=== PATIENT | female | born 1970 | race Caucasian/White ===

== ENCOUNTER 2017-07-03 19:20 | Observation (INO) | payer MEDICARE, SELFPAY ==
[2017-07-03 19:21] VITALS: BP 122/94; PULSE 96; RESP 15; TEMP 36.8; O2SAT 94; BMI 28.8
--- NOTE | 2017-07-03 20:02 | CT_ITS ---
STUDY: CT LUMBAR SPINE WITH CONTRAST REASON FOR EXAM: Female, 47 years old. Low back pain RADIATION DOSAGE (If Supplied By Facility): CTDIvol = ( 17.60 ) mGy, DLP = ( 1038.57 ) mGycm TECHNIQUE: The patient was scanned in a multi detector CT scanner. High resolution transaxial imaging was performed following the intravenous administration of 100 ml of Isovue 300 contrast material. Images were obtained from T12 to the lower pelvis. Sagittal and coronal images were reconstructed. Individualized dose optimization techniques were used for this CT. COMPARISON: May 05, 2016 FINDINGS: Normal lumbar lordosis. There is no substantial scoliosis. Normal alignment of the lumbar vertebral bodies. Pedicle screws and rods are present bilaterally from L4 through S1. L1-2: Normal endplates. Normal disc height and morphology. Normal bilateral facet joints. Normal central canal and bilateral lateral recesses. Normal bilateral intervertebral neural foramina. L2-3: Normal endplates. Normal disc height and morphology. Normal bilateral facet joints. Normal central canal and bilateral lateral recesses. Normal bilateral intervertebral neural foramina. L3-4: There is minimal disc space narrowing and disc bulge without canal narrowing or significant foraminal narrowing. L4-5: There is moderate disc space narrowing and broad disc bulge. There is no canal narrowing or significant foraminal narrowing. L5-S1: There is minimal disc bulge without canal narrowing. There is mild foraminal narrowing on the left. There are benign appearing cysts in both kidneys. There is fatty infiltration of the liver. CT/Coronals Sag Multi Obl 3-D Rec IMPRESSION: No acute abnormalities are seen in the lumbar spine. There are no compression fractures. There is no abnormal enhancement. There are no abnormal masses or fluid collections. There are stable surgical changes from L4 through S1. Electronically Signed: Maya Pearson MD at 22:28 EST Tel Direct: [phone], Service support ,
--- NOTE | 2017-07-03 20:02 | CT_ITS ---
STUDY: CT ABDOMEN AND PELVIS WITH CONTRAST REASON FOR EXAM: Female, 47 years old. Low abdominal pain RADIATION DOSAGE (If Supplied By Facility): CTDIvol = ( 17.60 ) mGy, DLP = ( 1038.57 ) mGycm TECHNIQUE: Transaxial images were obtained from the dome of the diaphragm to the symphysis pubis without oral contrast. 100 ml of Isovue 300 contrast was administered. Sagittal and coronal images were reconstructed. Individualized dose optimization techniques were used for this CT. COMPARISON: April 30, 2017 FINDINGS: The visualized lung bases are unremarkable. There is no pleural effusion. The heart is normal in size. There is diffuse decreased density of the liver. There are surgical clips in the gallbladder fossa consistent with a prior cholecystectomy. The spleen is unremarkable. The pancreas is unremarkable. The adrenal glands are unremarkable. There are benign cysts in the right kidney. There is no dilatation of the collecting system in the right kidney. There are benign cysts in the left kidney. There is no dilatation of the collecting system in the left kidney. The stomach is unremarkable. The small bowel is unremarkable. There are diverticula in the distal colon without adjacent stranding. The appendix is surgically absent. The aorta and branch vessels are unremarkable. The inferior vena cava is unremarkable. There are small lymph nodes scattered in the retroperitoneum. There is no free fluid. The urinary bladder is unremarkable. There is absence of the uterus likely from prior hysterectomy. There are no abnormal masses in the adnexal regions. There is a metallic device in the mid left abdominal wall. There are mild degenerative changes in the visualized spine. There are surgical changes in the lower lumbar spine. CT/Abdomen/Pelvis W IV Cont ONLY IMPRESSION: No acute abnormalities are seen in the abdomen or pelvis. There is mild diverticulosis of the distal colon. There is no ascites, inflammation or significant lymphadenopathy. There is diffuse fatty infiltration of the liver. Electronically Signed: Maya Pearson MD at 22:35 EST Tel Direct: [phone], Service support ,
[2017-07-03] MEDS: HYDROmorphone 1 MG/ML Syringe SC (20:04)
--- NOTE | 2017-07-03 20:43 | ED.VISSUMM ---
- ER Visit Summary Date of Service: 07/03/17 Chief Complaint: Back pain History of Present Illness: The patient is a 47 F presenting for evaluation secondary to back pain. Patient has a underlying history of back pain and sees pain management. She has a past history of lumbar surgery, and actually was having worsening back pain so she had lumbar injections performed on Thursday of this week by pain management. Patient states that she had not had any changes in her back pain since Thursday, and denies that she was having any sort of new numbness or weakness or bowel or bladder incontinence fevers or night sweats. Patient states that tonight she was bending over and suddenly had an episode where she started forcibly coughing. Patient states that she had a sudden pop with a ripping sensation in her lower back. She now has pain originating in her lower back and radiating down her legs both sides all the way down to her toes. She denies that there is any bowel or bladder incontinence at this point, but she does state that she has some numbness in her groin and buttock area. She is not in any sort of anticoagulants. She does have a past history of brain aneurysm status post clips. Physical Examination: Vital signs are within normal limits patient is afebrile at 98.3. Well-nourished well-developed age-appropriate female visibly in significant pain, tearful in the bed. Head normocephalic. Moist mucous membranes. No JVD. Heart was regular rate and rhythm no murmurs. Lungs sounds clear to auscultation bilaterally. Abdomen was soft nontender nondistended normal bowel sounds no evidence of palpable abdominal mass or pulsatile mass. Rectal exam showed normal passive and active tone, but the patient reports abnormal perianal sensation and reports numbness in the area. Back exam shows a well-healed surgical scar with diffuse nonlocalizing tenderness palpation with no masses noted. No evidence of erythema at the injection site. Straight leg raise was limited secondary to the patient's level of pain. Strong pulses ?4, calves are supple. Skin normal color. Normal strength and sensation of the lower extremities. Patellar reflexes 2+ and bilaterally symmetric, Achilles 1+ and bilaterally symmetric, negative clonus and Babinski. Test Results: CT abdomen and pelvis with IV contrast found to be unremarkable. CT lumbar spine showed no evidence of acute pathology. CBC and chemistry unremarkable. Emergency Department Course and Treatment: Patient presented for evaluation secondary to a sudden onset back pain after coughing in the setting of having lumbar spinal injections approximately 3 days ago. There is concern for the possibility of epidural hematoma versus impingement versus significant bulging of the lumbar disc versus other etiology so IV was established patient was given Dilaudid and Zofran laboratory studies were obtained and CTs were ordered. Patient continued having pain. Her workup was ultimately found to be negative she was given multiple doses of pain medications in the emergency department. Reviewed the patient's records, she does have a history of coming into the hospital with different neurologic symptoms, and actually had strokelike symptoms at one point recently, received TPA, but was thought to have underlying conversion disorder. She has normal strength and sensation and reflexes are normal rectal tone, but her only symptom that would be concerning for epidural hematoma or other significant spinal pathology as her reported saddle anesthesia. I cannot completely rule out significant etiology at this point given the fact that we cannot do an MRI, so I believe that the best course of action at this time is admission for observation and pain control and reassessment in the morning to see if the patient requires CT myelogram. I discussed this with the hospitalist, the patient will be admitted. Disposition: Admission Impression: 1. Lumbar radiculopathy 2. Subjective saddle anesthesia 3. Recent lumbar injection This note was generated with [employer] dictation software. It may contain incorrect words, spelling, and punctuation that were not noted in review of the chart prior to signing ED Disposition - Plan for ED Patient: Chief Complaint: Back Referrals: Amandeep Loredo [Primary Care Provider] -
[2017-07-03 20:45] LABS: Anion Gap 11 (5-15); BUN 15 mg/dL (7-18); BUN/Creat Ratio 19.7 RATIO (10-20); Calcium,Total 8.4 mg/dL (8.5-10.1); Chloride 108 mmol/L (98-107); Creatinine, Serum 0.76 mg/dL (0.55-1.02); EST Glomerular Filtration Rate 86 mL/min (>60); Est Glom Filt Rate - Afr Amer 104 mL/min (>60); Estimated Creatinine Clearance 91.32 ml/min; Glucose 99 mg/dL (70-110); Potassium 3.9 mmol/L (3.5-5.1); Sodium Level 142 mmol/L (136-145)
[2017-07-03] MEDS: Ondansetron 4 MG/2 ML Vial IV (20:57)
[2017-07-03] MEDS: HYDROmorphone 1 MG/ML Syringe 0.5 MG IV (20:57)
[2017-07-03 21:02] LABS: Absolute Lymphocyte Count 3.42 X10^3/ul (0.83-4.51); Absolute Neutrophil Count 6.5 X10^3/uL (2.0-7.7); Basophil# 0.03 X10^3/uL; Basophil% 0.3 % (0-1); Eosinophil# 0.06 X10^3/uL; Eosinophils% 0.6 % (0-5); Hematocrit 44.5 % (37-47); Hemoglobin 14.9 g/dl (12.0-15.0); Lymphocyte # 3.42 X10^3/ul (4.0); Lymphocyte % 31.4 % (19-41); Mean Corp Hgb Conc 33.5 g/gl (32-36); Mean Corpuscular Hgb 32.1 pg (27.0-32.0); Mean Corpuscular Volume 95.9 fL (81-99); Mean Platelet Vol. 10.2 fl (6.2-12.0); Monocyte% 8.3 % (0-10); Neutrophil # 6.46 X10^3/uL (2.7-7.7); Neutrophil % 59.1 % (47-70); Platelet Count 302 K/mm3 (150-450); RBC Distribution Width CV 13.3 % (11.6-14.6); RBC Distribution Width SD 46.2 fl (35.1-43.9); Red Blood Count 4.64 M/mm3 (4.2-5.4); White Blood Count 10.9 K/mm3 (4.4-11.0)
[2017-07-03 21:03] LABS: POSITIVE COUNT NO; POSITIVE DIFFERENTIAL NO; POSITIVE MORPHOLOGY NO
--- NOTE | 2017-07-03 21:22 | ED.RN ---
PT C/O NEW ONSET OF TOTAL NUMBNESS TO VAGINAL AND RECTUM AREA AT THIS TIME. DR. TURNER INFORMED OF SAME. DR. TURNER INFORMED THIS NURSE THAT PT DOES HAVE RECTAL TONE UPON PHYSICAL EXAMINATION.
[2017-07-03] MEDS: diazePAM 5 MG Tablet PO (22:17)
[2017-07-03 22:25] VITALS: RESP 24
[2017-07-03] MEDS: oxyCODONE 5 MG Tablet 10 MG PO (22:38)
--- NOTE | 2017-07-03 23:27 | HP.PCM_ITS ---
Problem List (1) Acute back pain Status: Acute (2) CVA (cerebral vascular accident) Status: Acute (3) PAF (paroxysmal atrial fibrillation) Status: Acute (4) History of lumbar fusion Status: Chronic (5) IT band syndrome Status: Chronic (6) Migraine Status: Chronic Qualifiers: Migraine type: unspecified Status migrainosus presence: with status migrainosus Intractability: not intractable Qualified Code(s): G43.901 - Migraine, unspecified, not intractable, with status migrainosus (7) PTSD (post-traumatic stress disorder) Status: Chronic History of Present Illness Date of Admission: 07/03/17 Chief Complaint: Acute on chronic back pain The patient is a 47 year old female w/ h/o chronic back pain, conversion disorder, HTN, and CVA admitted for [id number] back pain. Pt had lumbar fusion a few months ago and after the surgery, she had severe back pain. Her hurt her back while trying to help her mother. She bent over to bulk picker her mother and felt a pop in her back. She developed sudden severe lower back pain after the incident. Nothing made it better or worse. Despite taking narcotic, she had no relieved. Whenever she bends over or cough, she felt severe lower back pain. No incontinence. Her pain is so severe that it would last for hours without relief and would interfere with her activity of daily living. 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 Weakness of left leg (Chronic) gastric pacemaker (Chronic) Allergies Penicillins Allergy (Verified 07/03/17 19:25) Anaphylaxis propoxyphene napsylate [From Darvocet-N 100] Allergy (Verified 07/03/17 19:25) Rash hydrocodone bitartrate [From Vicodin] Adverse Reaction (Verified 07/03/17 19:25) Itching venom-honey bee [bee venom (honey bee)] Adverse Reaction (Verified 07/03/17 19: 25) Chest tightness PLASTIC TAPE Allergy (Uncoded 06/19/17 20:56) Rash IV contrast Adverse Reaction (Uncoded 06/19/17 20:56) Vomiting Home Medications: Ambulatory Orders Medication Instructions Recorded Omeprazole [Prilosec] 20 mg PO BID 07/20/15 Oxycodone HCl [Oxycodone HCl ER] 20 mg PO BID PRN 07/22/16 Albuterol Sulfate [Ventolin Hfa] 2 puff IH Q6H PRN PRN 09/30/16 Fluticasone 0.05% [Flonase Nasal 2 spray NASAL DAILY 09/30/16 [place]] Aspirin [Aspirin, Baby] 81 mg PO DAILY@0800 tab.chew 12/31/16 Fluticasone/Salmeterol [Advair 1 each IH DAILY 12/31/16 250-50 [place]] Valproic Acid [Depakene] 500 mg PO BID 04/30/17 Surgical History: cholecystectomy, - - Multiple abdominal surgeries, including for kidney tumor, hysterectomy, cholecystectomy, endometriosis, brain aneursyms clamped and coiled. 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 Denies: Joint Pain, Joint Tenderness Skin: Denies: Rash, Wounds Neurological: Denies: Numbness, Tingling, Focal weakness Psychiatric: Denies: Anxiety, Depression, Homicidal Ideations, Suicidal Ideations Hematologic/ Lymphatic: Denies: Easy Bruising, Easy Bleeding VTE Information - Inpt Only VTE Present on Admission: No VTE Mechan Device Prophylaxis: SCD's VTE Pharm Prophylaxis ordered?: Yes Patient Problems: Active and Suspected Problems Acute back pain (Acute) - Physical Exam General: Alert, Oriented x3, Cooperative HEENT: Atraumatic, PERRLA, EOMI, Normocephalic Neck: Supple, No JVD, Negative Carotid Bruits Lungs: Clear to auscultation, Normal air movement Cardiovascular: Regular rate, No murmurs Abdomen: Bowel Sounds Present, Soft, Non Tender Extremities: No edema, Capillary Refill Less than 3 Seconds Skin: No rashes, No breakdown Musculoskeletal: No Tenderness to Palpation of Joints or Extremities Neurological: Cranial nerves II-XII grossly intact Psych/Mental Status: Normal Affect, Appropriate Vital Signs Temp Pulse Resp BP Pulse Ox 98.3 F 96 24 122/94 94 07/03/17 19:21 07/03/17 19:21 07/03/17 22:25 07/03/17 19:21 07/03/17 19:21 Oxygen Delivery Method Room Air Weight: 86.183 kg Body Mass Index (BMI) 28.8 Finger Stick Blood Glucose 93 Laboratory Tests Past 24 Hrs 07/03/17 07/03/17 20:25 20:25 WBC 10.9 RBC 4.64 Hgb 14.9 Hct 44.5 MCV 95.9 MCH 32.1 H MCHC 33.5 RDW 13.3 RDW Differential 46.2 H Plt Count 302 MPV 10.2 Immature Gran % (Auto) 0.300 Neut % (Auto) 59.1 Lymph % (Auto) 31.4 [place] % (Auto) 8.3 Eos % (Auto) 0.6 Baso % (Auto) 0.3 Absolute Neuts (auto) 6.5 Absolute Lymphs (auto) 3.42 Total Counted Not Reportable Sodium 142 Potassium 3.9 Chloride 108 H Carbon Dioxide 23.0 Anion Gap 11 BUN 15 Creatinine 0.76 Estim Creat Clear Calc 91.32 Est GFR (MDRD) Af Amer 104 Est GFR (MDRD) Non-Af 86 BUN/Creatinine Ratio 19.7 Glucose 99 Calcium 8.4 L Assessment/Plan Active and Suspected Problems Acute back pain (Acute) 47 year old female w/ h/o chronic back pain, conversion disorder, HTN, and CVA admitted for [id number] back pain. 1) Acute on chronic back pain: Most likely acute on chronic lumbosacral radiculopathy. CT disclosed no acute finding. Will pain control with IV morphine. May need MRI if no improvement or persistent. 2) CVA: Supportive care. Monitor 3) Depression: No SI/HI. Supportive care. 4) Prophylaxis: Heparin / SCD
[2017-07-03 23:33] VITALS: BP 121/74; PULSE 90; O2SAT 96
[2017-07-03 23:55] VITALS: BMI 30.9
[2017-07-04] VITALS (8 sets, daily range): BP systolic 112–141; BP diastolic 68–88; PULSE 72–100; RESP 16–21; TEMP 36.4–36.7; O2SAT 95–99
[2017-07-04] MEDS: 0.9% Normal Saline 1,000 ML 100 ML IV ×3 (00:35→18:56)
[2017-07-04] MEDS: Ketorolac 10 MG Tablet PO ×5 (00:35→23:32)
[2017-07-04] MEDS: Heparin Injection 5,000 UNITS/ML Syringe 5000 UNITS SC ×3 (05:40→21:37)
[2017-07-04 05:55] LABS: Hematocrit 41.8 % (37-47); Hemoglobin 13.3 g/dl (12.0-15.0); Mean Corp Hgb Conc 31.8 g/gl (32-36); Mean Corpuscular Hgb 31.1 pg (27.0-32.0); Mean Corpuscular Volume 97.7 fL (81-99); Mean Platelet Vol. 10.3 fl (6.2-12.0); Platelet Count 279 K/mm3 (150-450); RBC Distribution Width CV 13.4 % (11.6-14.6); RBC Distribution Width SD 47.6 fl (35.1-43.9); Red Blood Count 4.28 M/mm3 (4.2-5.4); White Blood Count 14.8 K/mm3 (4.4-11.0)
[2017-07-04 06:02] LABS: Scan Indicated on CBC? Y/N NO
[2017-07-04 06:11] LABS: Anion Gap 9 (5-15); BUN 17 mg/dL (7-18); BUN/Creat Ratio 22.1 RATIO (10-20); Calcium,Total 8.4 mg/dL (8.5-10.1); Chloride 104 mmol/L (98-107); Creatinine, Serum 0.77 mg/dL (0.55-1.02); EST Glomerular Filtration Rate 85 mL/min (>60); Est Glom Filt Rate - Afr Amer 103 mL/min (>60); Estimated Creatinine Clearance 90.13 ml/min; Glucose 111 mg/dL (70-110); Potassium 3.6 mmol/L (3.5-5.1); Sodium Level 139 mmol/L (136-145)
[2017-07-04] MEDS: Albuterol 2.5 MG/3 ML VIAL.NEB. INHALATION ×2 (06:41→19:20)
[2017-07-04] MEDS: Budesonide Respules 0.5 MG/2 ML AMPUL.NEB. INHALATION ×2 (06:41→19:19)
[2017-07-04 07:52] LABS: Amphetamine Urine VISTA NEGATIVE (<1000 ng/mL); Barbiturate Urine VISTA NEGATIVE (< 200 ng/mL); Benzodiazepine Urine VISTA POSITIVE (< 200 ng/mL); Cocaine Urine VISTA NEGATIVE (< 300 ng/mL); Ecstacy Urine VISTA NEGATIVE (< 500 ng/mL); Methadone Urine VISTA NEGATIVE (< 300 ng/mL); PCP Urine VISTA NEGATIVE (< 25 ng/mL); THC Urine VISTA NEGATIVE (< 50 ng/mL); Vista UDS pH Range 5
--- NOTE | 2017-07-04 09:19 | PN_ITS ---
Patient Problems: Active and Suspected Problems Acute back pain (Acute) Subjective: Patient is a 47-year-old lady with history of chronic back pain, hypertension conversion disorder, lumbar fusion who presented with acute back pain. Patient states she she experienced a pop in her low back after helping to move her mom who had fallen. Presented to the emergency department imaging studies unremarkable however in view of persistent pain admitted to regular nursing floor for further management. Of note patient had undergone epidural steroid injection by Dr. Robledo on 06/30/2017 Objective: GENERAL: Tearful HEENT: Clear conjunctiva, NECK; supple, normal thyroid, CHEST: Clear to auscultation bilaterally, HEART: Regular S1 S2, no audible murmurs ABDOMEN: soft, non-tender, normoactive bowel sounds, RECTAL: deferred EXTREMITIES: No edema, no clubbing, no cyanosis. 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 SKIN: No rash, Vitals/I&O's: Vital Signs Temp Pulse Resp BP Pulse Ox 97.8 F 100 21 141/83 95 07/04/17 00:07 07/04/17 07:05 07/04/17 07:05 07/04/17 00:07 07/04/17 07:21 Oxygen Delivery Method Room Air Weight: 92.3 kg Body Mass Index (BMI) 30.9 Laboratory Results 07/04/17 05:30: WBC 14.8 H, RBC 4.28, Hgb 13.3, Hct 41.8, MCV 97.7, MCH 31.1, MCHC 31.8 L, RDW 13.4, RDW Differential 47.6 H, Plt Count 279, MPV 10.3 07/04/17 05:30: Sodium 139, Potassium 3.6, Chloride 104, Carbon Dioxide 26.0, Anion Gap 9, BUN 17, Creatinine 0.77, Estim Creat Clear Calc 90.13, Est GFR ( MDRD) Af Amer 103, Est GFR (MDRD) Non-Af 85, BUN/Creatinine Ratio 22.1 H, Glucose 111 H, Calcium 8.4 L 07/04/17 06:22: Urine Opiates Screen POSITIVE H, Urine Methadone Screen NEGATIVE , Ur Barbiturates Screen NEGATIVE, Ur Phencyclidine Scrn NEGATIVE, Ur Amphetamines Screen NEGATIVE, U Methamphetamin-MDMA NEGATIVE, U Benzodiazepines Scrn POSITIVE H, Urine Cocaine Screen NEGATIVE, U Cannabinoids Screen NEGATIVE, Ur Drug Screen Comment Current Medications Albuterol Sulfate (Ventolin Aerosols) 2.5 mg INHALATION Q6HWA.RT [facility] Last Admin: 07/04/17 06:41 Dose: 2.5 mg Aspirin (Aspirin, Baby) 81 mg PO DAILY@0800 ADAM Budesonide (Pulmicort Aerosol) 0.5 mg INHALATION Q12H.RT [facility] Last Admin: 07/04/17 06:41 Dose: 0.5 mg Fluticasone Propionate (Flonase Nasal [place]) 2 spray NASAL DAILY [facility] Heparin Sodium (Porcine) () 5,000 units SC Q8 [facility] Last Admin: 07/04/17 05:40 Dose: 5,000 units Sodium Chloride () 1,000 mls @ 100 mls/hr IV .Q10H [facility] Last Admin: 07/04/17 00:35 Dose: 100 mls/hr Influenza Virus Vaccine Quadrival (Fluarix/Fluzone) 0.5 ml IM .ONCE ONE Stop: 07/04/17 10:01 Ketorolac Tromethamine (Toradol) 10 mg PO Q6 [facility] Stop: 07/09/17 00:09 Last Admin: 07/04/17 05:40 Dose: 10 mg Morphine Sulfate (Morphine) 1 - 2 mg IV Q4H PRN PRN PRN Reason: Moderate Pain (pain scale 4-5) Morphine Sulfate (Morphine) 2 - 4 mg IV Q3H PRN PRN PRN Reason: Severe Pain (pain scale 6-10) Last Admin: 07/04/17 04:30 Dose: 4 mg Oxycodone HCl (Oxycontin) 20 mg PO BID PRN PRN Reason: PAIN Last Admin: 07/04/17 00:35 Dose: 20 mg Pantoprazole Sodium (Protonix) 20 mg PO DAILY [facility] Sodium Chloride () 5 - 30 ml IV UD PRN PRN Reason: SALINE FLUSH Valproic Acid (Depakene) 500 mg PO BID [facility] Assessment/Plan Active and Suspected Problems Acute back pain (Acute) Patient is a 47-year-old lady with history of chronic back pain, hypertension conversion disorder, lumbar fusion who presented with acute back pain. Patient states she she experienced a pop in her low back after helping to move her mom who had fallen. Presented to the emergency department imaging studies unremarkable however in view of persistent pain admitted to regular nursing floor for further management. Of note patient had undergone epidural steroid injection by Dr. Robledo on 06/30/2017 1. Acute on chronic low back pain secondary to back strain: Admitted to regular nursing floor for symptomatic management with consultation placed to pain medicine Dr. Robledo 2. History of previous CVA 3. PTSD 4. Gastroparesis status post gastric stimulator placement 5. Depression with anxiety 6. Seizure disorder patient is on valproic acid 7. Obesity with BMI of 30.9 lifestyle modification including weight loss advised 8. DVT prophylaxis SC Lovenox Clinical Impression(s) from Imaging Studies 3D Reconstruction 07/03/17 20:02 IMPRESSION: No acute abnormalities are seen in the lumbar spine. There are no compression fractures. There is no abnormal enhancement. There are no abnormal masses or fluid collections. There are stable surgical changes from L4 through S1. Electronically Signed: Maya Pearson MD at 22:28 EST Tel Direct: [phone], Service support , Abdomen/Pelvis CT 07/03/17 20:02 IMPRESSION: No acute abnormalities are seen in the abdomen or pelvis. There is mild diverticulosis of the distal colon. There is no ascites, inflammation or significant lymphadenopathy. There is diffuse fatty infiltration of the liver. Electronically Signed: Maya Pearson MD at 22:35 EST Tel Direct: [phone], Service support ,
[2017-07-04] MEDS: Aspirin 81 MG TAB.CHEW PO (10:06)
[2017-07-04] MEDS: Fluticasone 0.05% 1 SPRAY NASAL.SRY 2 SPRAY NASAL (10:06)
[2017-07-04] MEDS: Pantoprazole Sodium 20 MG Tablet PO (10:07)
[2017-07-04] MEDS: 0.9% NaCl Peripheral Flush Adult/Peds IV ×2 (20:09→23:26)
[2017-07-05] VITALS (7 sets, daily range): BP systolic 123–143; BP diastolic 63–87; PULSE 71–89; RESP 16–21; TEMP 36.4–36.9; O2SAT 94–99
--- NOTE | 2017-07-05 01:24 | RAD_ITS ---
STUDY: X-RAY - PELVIS AND LEFT HIP REASON FOR EXAM: Female, 47 years old. Left hip pain TECHNIQUE: Radiological exam, hip, unilateral, 2 or 3 views. COMPARISON: None. FINDINGS: Visualized pelvic bones appear intact without demonstrable irregularity. Normal visualized femoral head. Normal acetabulum. Normal left hip joint. RAD/Hip Min 2 Views (Portable) IMPRESSION: Normal x-ray examination of the left hip, without evidence of fracture or degenerative joint disease. Electronically Signed: Jermaine Kent MD at 3:12 EST Tel , Service support ,
--- NOTE | 2017-07-05 01:26 | NURSING ---
Pt called to go to the bathroom. Walked with pt to the bathroom and pt c/o 'clunking' feeling in her lower back. visible movement in hip/lower back on taking steps with left leg. c/o numbness and tingling in left leg when she reached the toilet. called for more staff and assisted pt back to bed on wheelchair. left leg appears slightly shorter than right now, slightly weaker than right. circ obs cap refill < 3 seconds, pink, warm and good pedal pulse. numbness and tingling remain on return to bed. notified Dr Samuel who ordered urgent Xray of left hip. Radiology aware.
--- NOTE | 2017-07-05 03:19 | RAD_ITS ---
STUDY: X-RAY - LUMBAR SPINE REASON FOR EXAM: Female, 47 years old. Lower back pain TECHNIQUE: 3 view(s) of the lumbar spine were obtained. COMPARISON: None FINDINGS: Normal lumbar lordosis. There is a mild dextroscoliosis of the lumbar spine. There is a normal alignment of the vertebrae. There is generalized demineralization of the vertebral bodies. There is multi-level degenerative disc disease with multi-level disc space narrowing. There is fusion and bilateral laminectomy at L4-5 and L5-S1 in good alignment. The soft tissue structures are unremarkable. RAD/Lumbar Spine 2 or 3 Views IMPRESSION: Degenerative changes of the lumbar spine, postsurgical changes at L4-5 and L5-S1, as detailed above. Electronically Signed: Karie Chang MD at 4:10 EST Tel , Service support ,
[2017-07-05] MEDS: 0.9% Normal Saline 1,000 ML 100 ML IV ×2 (06:05→17:13)
[2017-07-05] MEDS: Ketorolac 10 MG Tablet PO ×3 (06:06→17:14)
[2017-07-05] MEDS: Heparin Injection 5,000 UNITS/ML Syringe 5000 UNITS SC ×3 (06:06→21:16)
--- NOTE | 2017-07-05 08:31 | PCM.PN.HOSP ---
Patient Problems: Active and Suspected Problems Acute back pain (Acute) Subjective: Patient is seen still complains of intractable low back pain. Also complains of some warmth as well as cough this a.m. chest x-ray ordered for subsequent evaluation Objective: GENERAL: Cooperative HEENT: Clear conjunctiva, NECK; supple, normal thyroid, CHEST: Clear to auscultation bilaterally, HEART: Regular S1 S2, no audible murmurs ABDOMEN: soft, non-tender, normoactive bowel sounds, RECTAL: deferred EXTREMITIES: No edema, no clubbing, no cyanosis. 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 SKIN: No rash, Vitals/I&O's: Vital Signs Temp Pulse Resp BP Pulse Ox 98 F 75 20 143/63 95 07/05/17 02:04 07/05/17 02:04 07/05/17 02:04 07/05/17 02:04 07/05/17 07:30 Oxygen Delivery Method Room Air Weight: 92.3 kg Body Mass Index (BMI) 30.9 Intake and Output for Last 24 Hours 07/03/17 07/04/17 07/05/17 23:59 23:59 23:59 Intake Total 2928 1257 Output Total 2100 1300 Balance 828 -43 Current Medications Albuterol Sulfate (Ventolin Aerosols) 2.5 mg INHALATION Q6HWA.RT [facility] Last Admin: 07/05/17 07:31 Dose: Not Given Aspirin (Aspirin, Baby) 81 mg PO DAILY@0800 [facility] Last Admin: 07/04/17 10:06 Dose: 81 mg Budesonide (Pulmicort Aerosol) 0.5 mg INHALATION Q12H.RT [facility] Last Admin: 07/05/17 07:31 Dose: Not Given Fluticasone Propionate (Flonase Nasal [place]) 2 spray NASAL DAILY [facility] Last Admin: 07/04/17 10:06 Dose: 2 spray Heparin Sodium (Porcine) () 5,000 units SC Q8 [facility] Last Admin: 07/05/17 06:06 Dose: 5,000 units Sodium Chloride () 1,000 mls @ 100 mls/hr IV .Q10H [facility] Last Admin: 07/05/17 06:05 Dose: 100 mls/hr Ketorolac Tromethamine (Toradol) 10 mg PO Q6 [facility] Stop: 07/09/17 00:09 Last Admin: 07/05/17 06:06 Dose: 10 mg Morphine Sulfate (Morphine) 1 - 2 mg IV Q4H PRN PRN PRN Reason: Moderate Pain (pain scale 4-5) Morphine Sulfate (Morphine) 2 - 4 mg IV Q3H PRN PRN PRN Reason: Severe Pain (pain scale 6-10) Last Admin: 07/04/17 23:25 Dose: 4 mg Oxycodone HCl (Oxycontin) 20 mg PO BID PRN PRN Reason: PAIN Last Admin: 07/04/17 21:37 Dose: 20 mg Pantoprazole Sodium (Protonix) 20 mg PO DAILY [facility] Last Admin: 07/04/17 10:07 Dose: 20 mg Sodium Chloride () 5 - 30 ml IV UD PRN PRN Reason: SALINE FLUSH Last Admin: 07/04/17 23:26 Dose: 5 ml Valproic Acid (Depakene) 500 mg PO BID [facility] Last Admin: 07/04/17 21:37 Dose: 500 mg Assessment/Plan Active and Suspected Problems Acute back pain (Acute) Patient is a 47-year-old lady with history of chronic back pain, hypertension conversion disorder, lumbar fusion who presented with acute back pain. Patient states she she experienced a pop in her low back after helping to move her mom who had fallen. Presented to the emergency department imaging studies unremarkable however in view of persistent pain admitted to regular nursing floor for further management. Of note patient had undergone epidural steroid injection by Dr. Robledo on 06/30/2017 1. Acute on chronic low back pain secondary to back strain: Admitted to regular nursing floor for symptomatic management with consultation placed to pain medicine Dr. Robledo 2. History of previous CVA 3. PTSD 4. Gastroparesis status post gastric stimulator placement 5. Depression with anxiety 6. Seizure disorder patient is on valproic acid 7. Obesity with BMI of 30.9 lifestyle modification including weight loss advised 8. Tobacco dependence counseled on cessation, offered nicotine patch for tobacco cravings 9. Persistent cough?? Bronchitis CXR ordered for further evaluation 10. DVT prophylaxis SC Lovenox
--- NOTE | 2017-07-05 08:36 | RAD_ITS ---
STUDY: X-RAY CHEST REASON FOR EXAM: Female, 47 years old. Productive cough TECHNIQUE: Single frontal view of the chest. COMPARISON: 05/15/2017 FINDINGS: Cervical spine fusion. The lungs are clear and expanded. There is no demonstrated pleural abnormality. Normal size heart. Normal mediastinum and kimani. Normal visualized pulmonary arteries. Normal visualized aortic arch and descending thoracic aorta. Normal visualized thoracic spine. Normal visualized ribs, clavicles, and shoulders. There is no demonstrated abnormality of the visualized soft tissue structures of the upper abdomen. RAD/Chest 1 View (Portable) IMPRESSION: No acute pulmonary findings. Electronically Signed: Gigi Rothman MD at 12:01 EST Tel , Service support ,
--- NOTE | 2017-07-05 08:36 | PN_ITS ---
Patient Problems: Active and Suspected Problems Acute back pain (Acute) Subjective: Patient is seen still complains of intractable low back pain. Also complains of some warmth as well as cough this a.m. chest x-ray ordered for subsequent evaluation Objective: GENERAL: Cooperative HEENT: Clear conjunctiva, NECK; supple, normal thyroid, CHEST: Clear to auscultation bilaterally, HEART: Regular S1 S2, no audible murmurs ABDOMEN: soft, non-tender, normoactive bowel sounds, RECTAL: deferred EXTREMITIES: No edema, no clubbing, no cyanosis. 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 SKIN: No rash, Vitals/I&O's: Vital Signs Temp Pulse Resp BP Pulse Ox 98 F 75 20 143/63 95 07/05/17 02:04 07/05/17 02:04 07/05/17 02:04 07/05/17 02:04 07/05/17 07:30 Oxygen Delivery Method Room Air Weight: 92.3 kg Body Mass Index (BMI) 30.9 Intake and Output for Last 24 Hours 07/03/17 07/04/17 07/05/17 23:59 23:59 23:59 Intake Total 2928 1257 Output Total 2100 1300 Balance 828 -43 Current Medications Albuterol Sulfate (Ventolin Aerosols) 2.5 mg INHALATION Q6HWA.RT [facility] Last Admin: 07/05/17 07:31 Dose: Not Given Aspirin (Aspirin, Baby) 81 mg PO DAILY@0800 [facility] Last Admin: 07/04/17 10:06 Dose: 81 mg Budesonide (Pulmicort Aerosol) 0.5 mg INHALATION Q12H.RT [facility] Last Admin: 07/05/17 07:31 Dose: Not Given Fluticasone Propionate (Flonase Nasal [place]) 2 spray NASAL DAILY [facility] Last Admin: 07/04/17 10:06 Dose: 2 spray Heparin Sodium (Porcine) () 5,000 units SC Q8 [facility] Last Admin: 07/05/17 06:06 Dose: 5,000 units Sodium Chloride () 1,000 mls @ 100 mls/hr IV .Q10H [facility] Last Admin: 07/05/17 06:05 Dose: 100 mls/hr Ketorolac Tromethamine (Toradol) 10 mg PO Q6 [facility] Stop: 07/09/17 00:09 Last Admin: 07/05/17 06:06 Dose: 10 mg Morphine Sulfate (Morphine) 1 - 2 mg IV Q4H PRN PRN PRN Reason: Moderate Pain (pain scale 4-5) Morphine Sulfate (Morphine) 2 - 4 mg IV Q3H PRN PRN PRN Reason: Severe Pain (pain scale 6-10) Last Admin: 07/04/17 23:25 Dose: 4 mg Oxycodone HCl (Oxycontin) 20 mg PO BID PRN PRN Reason: PAIN Last Admin: 07/04/17 21:37 Dose: 20 mg Pantoprazole Sodium (Protonix) 20 mg PO DAILY [facility] Last Admin: 07/04/17 10:07 Dose: 20 mg Sodium Chloride () 5 - 30 ml IV UD PRN PRN Reason: SALINE FLUSH Last Admin: 07/04/17 23:26 Dose: 5 ml Valproic Acid (Depakene) 500 mg PO BID [facility] Last Admin: 07/04/17 21:37 Dose: 500 mg Assessment/Plan Active and Suspected Problems Acute back pain (Acute) Patient is a 47-year-old lady with history of chronic back pain, hypertension conversion disorder, lumbar fusion who presented with acute back pain. Patient states she she experienced a pop in her low back after helping to move her mom who had fallen. Presented to the emergency department imaging studies unremarkable however in view of persistent pain admitted to regular nursing floor for further management. Of note patient had undergone epidural steroid injection by Dr. Robledo on 06/30/2017 1. Acute on chronic low back pain secondary to back strain: Admitted to regular nursing floor for symptomatic management with consultation placed to pain medicine Dr. Robledo 2. History of previous CVA 3. PTSD 4. Gastroparesis status post gastric stimulator placement 5. Depression with anxiety 6. Seizure disorder patient is on valproic acid 7. Obesity with BMI of 30.9 lifestyle modification including weight loss advised 8. Tobacco dependence counseled on cessation, offered nicotine patch for tobacco cravings 9. Persistent cough?? Bronchitis CXR ordered for further evaluation 10. DVT prophylaxis SC Lovenox
[2017-07-05] MEDS: Aspirin 81 MG TAB.CHEW PO (08:45)
[2017-07-05] MEDS: Pantoprazole Sodium 20 MG Tablet PO (08:45)
[2017-07-05] MEDS: Fluticasone 0.05% 1 SPRAY NASAL.SRY 2 SPRAY NASAL (08:46)
[2017-07-05] MEDS: Albuterol 2.5 MG/3 ML VIAL.NEB. INHALATION ×2 (13:09→19:58)
[2017-07-05] MEDS: Budesonide Respules 0.5 MG/2 ML AMPUL.NEB. INHALATION (19:58)
[2017-07-05] MEDS: 0.9% NaCl Peripheral Flush Adult/Peds IV (21:15)
[2017-07-06] VITALS (7 sets, daily range): BP systolic 124–140; BP diastolic 71–93; PULSE 71–86; RESP 16–20; TEMP 36.5–36.8; O2SAT 94–99
[2017-07-06] MEDS: Ketorolac 10 MG Tablet PO ×3 (00:03→11:39)
[2017-07-06] MEDS: 0.9% Normal Saline 1,000 ML 100 ML IV ×2 (01:52→11:43)
[2017-07-06] MEDS: 0.9% NaCl Peripheral Flush Adult/Peds IV ×2 (01:52→18:29)
--- NOTE | 2017-07-06 04:00 | CASEMGMT ---
CLIVE VALENZUELA reviewed Medicare Outpatient Observation Notice with patient. Patient upset and voiced that the hospital is keeping her in observation so that she cannot go to a care home facility. CLIVE VALENZUELA explained that therapy recommended discharge to home with outpatient therapy and insurance would not approve discharge to a care home facility if therapy recommends home. CLIVE VALENZUELA also explained why the patient was in observation. Patient stated that she had difficulty walking and that someone had to assist her. CLIVE VALENZUELA updated the patient that therapy would re-eval for discharge planning. RN NICOLAS updated therapy. CLIVE VALENZUELA to follow up in morning.
[2017-07-06] MEDS: Heparin Injection 5,000 UNITS/ML Syringe 5000 UNITS SC ×3 (06:43→21:41)
[2017-07-06] MEDS: Albuterol 2.5 MG/3 ML VIAL.NEB. INHALATION ×3 (07:10→23:13)
[2017-07-06] MEDS: Budesonide Respules 0.5 MG/2 ML AMPUL.NEB. INHALATION (07:10)
[2017-07-06] MEDS: Fluticasone 0.05% 1 SPRAY NASAL.SRY 2 SPRAY NASAL (09:12)
[2017-07-06] MEDS: Aspirin 81 MG TAB.CHEW PO (09:12)
[2017-07-06] MEDS: Pantoprazole Sodium 20 MG Tablet PO (09:13)
[2017-07-06] MEDS: Bisacodyl 5 MG Tablet 10 MG PO (13:27)
[2017-07-06] MEDS: oxyCODONE 5 MG Tablet PO ×2 (15:58→22:59)
--- NOTE | 2017-07-06 20:59 | PCM.PROGNOTE ---
Patient Problems: Active and Suspected Problems Acute back pain (Acute) Subjective: Patient was seen and examined today, I had a long discussion with her about her back pain and she is also concerned that she has left hip pain and she feels a popping sensation when she stands on her left hip. I talked informally with orthopedics and they feel that this is probably a snapping hip syndrome chest to do with a muscle that goes over the hip joint. I have decided to place the patient on IV Decadron I talked briefly with pain management and I increased the patient's pain medicine today. Patient does not appear to be suitable to go to an extended care facility as she is walking without assistance and would not qualify for an extended care facility. X-rays of the patient's hip were unremarkable - Physical Exam General: Alert, Oriented x3, Cooperative HEENT: Atraumatic, PERRLA, EOMI, Normocephalic Oral: Moist Mucosa Neck: Supple, No JVD, Negative Carotid Bruits, No Nuchal Rigidity, Trachea Midline, Thyroid Normal Size and Texture Lungs: Clear to auscultation, Normal air movement, No rhonchi, No wheeze, No rales Cardiovascular: Regular rate, No murmurs Abdomen: Bowel Sounds Present, Soft, Non Tender, Non-Distended, No hernias noted Extremities: No clubbing, No cyanosis, No edema, Capillary Refill Less than 3 Seconds Skin: No rashes, No breakdown Musculoskeletal: Tenderness - tenderness to palpation over the left hip area and left SI joint area Neurological: Cranial nerves II-XII grossly intact, Neuro grossly intact, Sensory exam intact to light touch and pain, Coordination normal Psych/Mental Status: Normal Affect, Appropriate, Alert and oriented to time, place, person, mood and affect Vital Signs Temp Pulse Resp BP Pulse Ox 98.3 F 75 18 140/71 97 07/06/17 19:47 07/06/17 19:47 07/06/17 19:47 07/06/17 19:47 07/06/17 19:47 Oxygen Delivery Method Room Air Weight: 92.3 kg Body Mass Index (BMI) 30.9 Intake and Output for Last 24 Hours 07/04/17 07/05/17 07/06/17 23:59 23:59 23:59 Intake Total 2928 3318 3843 Output Total 2100 4450 5350 Balance 828 -4692 150 Laboratory Tests Past 24 Hrs 07/05/17 22:16 Stool H. 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
[2017-07-07] VITALS (7 sets, daily range): BP systolic 97–126; BP diastolic 62–84; PULSE 90–111; RESP 18–20; TEMP 36.4–36.7; O2SAT 94–97
[2017-07-07] MEDS: DiphenhydrAMINE 25 MG Capsule 50 MG PO ×2 (00:04→21:31)
[2017-07-07] MEDS: 0.9% NaCl Peripheral Flush Adult/Peds IV ×4 (00:04→17:51)
[2017-07-07] MEDS: oxyCODONE 5 MG Tablet PO ×3 (05:21→17:48)
[2017-07-07] MEDS: Heparin Injection 5,000 UNITS/ML Syringe 5000 UNITS SC (05:24)
[2017-07-07] MEDS: Albuterol 2.5 MG/3 ML VIAL.NEB. INHALATION ×3 (07:35→19:37)
--- NOTE | 2017-07-07 09:26 | NURSING ---
Addendum entered by Laurie Mcdowell 07/07/17 10:08: pt did not eat breakfast. Original Note: Addendum entered by Laurie Mcdowell 07/07/17 10:07: [place] with Dr. Robledo's office called in and states that patient will be having injections today- and that he is calling the OR to see when the schedule will allow procedure to occur. Patient notified of same, made NPO. Original Note: Patient called out this morning and requested that Dr. Robledo's office be called to see if injection will be today- patient has not eaten and is waiting to see what Dr. Robledo's plan is. This RN called Dr. Robledo's office and notified [place] of the same- and requested call back to be able to let patient know plan for the day. Understanding verbalized. This RN attempted to return to patient's room to let her know that we are awaiting phone call- patient laying in bed with eyes closed - snoring.
[2017-07-07] MEDS: Fluticasone 0.05% 1 SPRAY NASAL.SRY 2 SPRAY NASAL (10:18)
[2017-07-07] MEDS: Aspirin 81 MG TAB.CHEW PO (10:21)
[2017-07-07] MEDS: Pantoprazole Sodium 20 MG Tablet PO (10:21)
--- NOTE | 2017-07-07 11:50 | PCA ---
Call received from Dr. Robledo's office regarding injection procedure. States that this is scheduled for 07/08/17 at 1300. Informed Primary RN, Laurie.
--- NOTE | 2017-07-07 13:48 | CASEMGMT ---
Social Work Spoke with pt regarding discharge plan. Introduced self and role at [facility]. The pt states that she will go home with home health care. She had [facility] and requests that SW setup her up with this agency again and that she request that [facility] be her PT again. Placed call to [facility] and spoke with Tomasa who states that they do not accept the pt insurance. Back in to speak with pt and she confirms that she did have different insurance when she had them. Discuss other agencies in the area and the pt requests [facility] as she has had them in the past. States that she also spoke with PT and they were recommending that the pt get crutches and an elevated toilet riser with handles, but no legs. Placed call to [facility] and spoke with intake who confirm that they are able to accept. Initial referral faxed to [facility] Intake at [phone]. Script for above equipment placed on chart for physician to sign. Will have delivered to the hospital prior to discharge per the pt's request. Plan: [facility] for PT/OT. GIOVANNI LawW
[2017-07-07] MEDS: diazePAM 2 MG Tablet PO ×2 (15:06→21:31)
--- NOTE | 2017-07-07 20:21 | PN_ITS ---
Patient Problems: Active and Suspected Problems Acute back pain (Acute) Subjective: Patient seen and examined today, pain management was not able to inject her left lower back area today, it will be performed tomorrow. I have decided to place patient on low-dose Valium to see if this will help her lower back pain. Patient states that physical therapy has recommended she use crutches-I told her this was a good idea - Physical Exam General: Alert, Oriented x3, Cooperative, Well developed, Well nourished HEENT: Atraumatic, PERRLA, EOMI, Normocephalic Oral: Moist Mucosa Neck: Supple, No JVD, Negative Carotid Bruits, Trachea Midline, Thyroid Normal Size and Texture Lungs: Clear to auscultation, Normal air movement, No rhonchi, No wheeze, No rales Cardiovascular: Regular rate, Regular Rhythm, Normal S1, Normal S2, No murmurs, No Ectopic Activity, PMI Normal, No rub noted, No Gallop Abdomen: Bowel Sounds Present, Soft, Non Tender, Non-Distended, Obese, No hernias noted Extremities: No edema, Capillary Refill Less than 3 Seconds Skin: No rashes, No breakdown Musculoskeletal: Tenderness - This is noted over the left SI joint and left hip area Neurological: Cranial nerves II-XII grossly intact, Neuro grossly intact, Sensory exam intact to light touch and pain, Coordination normal Psych/Mental Status: Normal Affect, Appropriate, Alert and oriented to time, place, person, mood and affect Vital Signs Temp Pulse Resp BP Pulse Ox 97.5 F 105 18 118/68 95 07/07/17 15:03 07/07/17 15:03 07/07/17 15:03 07/07/17 15:03 07/07/17 15:03 Oxygen Delivery Method Room Air Weight: 92.3 kg Body Mass Index (BMI) 30.9 Intake and Output for Last 24 Hours 07/05/17 07/06/17 07/07/17 23:59 23:59 23:59 Intake Total 3318 3843 3044 Output Total 4450 5350 1650 Balance -1132 -1507 1394 Laboratory Tests Past 24 Hrs 07/05/17 22:16 Stool H. 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
[2017-07-08] VITALS (10 sets, daily range): BP systolic 107–133; BP diastolic 63–80; PULSE 63–104; RESP 15–20; TEMP 36.4–37.1; O2SAT 92–96; BMI 30.9
[2017-07-08] MEDS: 0.9% NaCl Peripheral Flush Adult/Peds IV ×3 (00:18→12:15)
[2017-07-08] MEDS: oxyCODONE 5 MG Tablet PO ×3 (00:18→16:43)
[2017-07-08] MEDS: diazePAM 2 MG Tablet PO ×2 (05:53→16:43)
--- NOTE | 2017-07-08 06:30 | RAD_ITS ---
STUDY: X-RAY - SACROILIAC JOINTS REASON FOR EXAM: Female, 47 years old. Intraoperative digital documentation image of the left sacroiliac joint injection TECHNIQUE: A single digital nondiagnostic view(s) of the sacroiliac joints were obtained. COMPARISON: None. FINDINGS: A single nondiagnostic digital image shows a needle tip within the left SI joint. RAD/S-I Jts 3 or More Views IMPRESSION: Single nondiagnostic digital documentation image. Electronically Signed: Esau Otoole MD at 17:25 EST , Service support ,
[2017-07-08] MEDS: Albuterol 2.5 MG/3 ML VIAL.NEB. INHALATION (07:01)
--- NOTE | 2017-07-08 09:21 | CASEMGMT ---
Social Work Inform pt that [facility] also does not accept her insurance, but that SW spoke with [facility] and they do. Pt is agreeable to getting services through [facility]. Faxed referral to [facility] and notified that pt should discharge today after her injection. Will have DME delivered once hospitalist signs script. SW to continue to follow and assist with discharge planning. Mickie Trotter, BACK TENDER CYLINDER NATURAL RESOURCE MANAGER
[2017-07-08] MEDS: Fluticasone 0.05% 1 SPRAY NASAL.SRY 2 SPRAY NASAL (09:58)
[2017-07-08] MEDS: Pantoprazole Sodium 20 MG Tablet PO (09:59)
--- NOTE | 2017-07-08 11:11 | CASEMGMT ---
Social Work Script for DME signed. Faxed referral to [facility]. Placed call to [facility] and spoke with Sanjiv, requesting that DME be delivered prior to discharge. SW to continue to follow and assist as needed. GIOVANNI LawW
[2017-07-08 11:29] LABS: Hematocrit 43.2 % (37-47); Hemoglobin 13.9 g/dl (12.0-15.0); Mean Corp Hgb Conc 32.2 g/gl (32-36); Mean Corpuscular Hgb 31.7 pg (27.0-32.0); Mean Corpuscular Volume 98.4 fL (81-99); Mean Platelet Vol. 10.3 fl (6.2-12.0); Platelet Count 296 K/mm3 (150-450); RBC Distribution Width CV 13.6 % (11.6-14.6); RBC Distribution Width SD 49.2 fl (35.1-43.9); Red Blood Count 4.39 M/mm3 (4.2-5.4); Scan Indicated on CBC? Y/N NO
[2017-07-08 11:36] LABS: Partial Thromboplast Time 23.3 Seconds (24.1-36.2)
[2017-07-08 11:42] LABS: Anion Gap 8 (5-15); BUN 17 mg/dL (7-18); BUN/Creat Ratio 22.4 RATIO (10-20); Calcium,Total 8.3 mg/dL (8.5-10.1); Chloride 109 mmol/L (98-107); Creatinine, Serum 0.76 mg/dL (0.55-1.02); EST Glomerular Filtration Rate 86 mL/min (>60); Est Glom Filt Rate - Afr Amer 105 mL/min (>60); Estimated Creatinine Clearance 91.32 ml/min; Glucose 113 mg/dL (70-110); Potassium 4.5 mmol/L (3.5-5.1); Sodium Level 143 mmol/L (136-145)
--- NOTE | 2017-07-08 14:43 | CASEMGMT ---
Social Work Call from Sanjiv at [facility] stating that he would be having a cdl driver come shortly to deliver the DME. Inform that the pt is not back yet and inquire if she needs to be present. Per Sanjiv they just need someone to sign the form that the DME was delivered. Staff will sign and then will have pt sign as well that the equipment is in her possession. SW to continue to follow and assist with discharge planning. Mickie Trotter, MANAGEMENT COORDINATOR LEAD MINER BLASTING
[2017-07-08] MEDS: Bupivacaine 0.25% 30 ML Vial (15:40)
[2017-07-08] MEDS: Triamcinolone Acetonide 40 MG/ML Vial (15:41)
--- NOTE | 2017-07-08 16:44 | CASEMGMT ---
Social Work DME delivered, pt back to room and signed form. Anticipate discharge home tomorrow. Notified [facility]. SW to continue to follow and assist. Mickie Trotter, VP GENETIC BIRD CAGE ASSEMBLER
--- NOTE | 2017-07-08 17:22 | PCM.DC ---
- Discharge Diagnoses Current Active Problems: Current Active and Chronic Problems Acute back pain (Acute) You will use the following diet at home:: No restrictions Your food should be the consistency of: Regular Your liquids should be the consistency of: Regular/Thin Discharge Activity: Return to Normal Activity, Use Crutches Weight Bearing Status: Weight bearing as tolerated Allergies/Adverse Reactions: Allergies Penicillins Allergy (Verified 07/03/17 19:25) Anaphylaxis propoxyphene napsylate [From Darvocet-N 100] Allergy (Verified 07/03/17 19:25) Rash hydrocodone bitartrate [From Vicodin] Adverse Reaction (Verified 07/03/17 19:25) Itching latex Adverse Reaction (Verified 07/07/17 00:12) blistering of skin venom-honey bee [bee venom (honey bee)] Adverse Reaction (Verified 07/03/17 19:25) Chest tightness PLASTIC TAPE Allergy (Uncoded 06/19/17 20:56) Rash IV contrast Adverse Reaction (Uncoded 06/19/17 20:56) Vomiting Medications to take at Discharge Omeprazole [Prilosec] 20 mg PO BID 07/20/15 Oxycodone HCl [Oxycodone HCl ER] 20 mg PO BID PRN 07/22/16 Albuterol Sulfate [Ventolin Hfa] 2 puff IH Q6H PRN PRN 09/30/16 Fluticasone 0.05% [Flonase Nasal [place]] 2 spray NASAL DAILY 09/30/16 Aspirin [Aspirin, Baby] 81 mg PO DAILY@0800 tab.chew 12/31/16 Fluticasone/Salmeterol [Advair 250-50 Diskus] 1 each IH DAILY 12/31/16 Valproic Acid [Depakene] 500 mg PO BID 04/30/17 Diazepam [Valium] 2 mg PO TID PRN PRN #20 tablet 07/08/17 Oxycodone [Oxyir] 5 - 10 mg PO Q6H PRN PRN #20 tablet 07/08/17 The following prescriptions were given: Oxycodone [Oxyir] 5 - 10 mg PO Q6H PRN PRN #20 tablet PRN Reason: Severe Pain (-06/02) Diazepam [Valium] 2 mg PO TID PRN PRN #20 tablet PRN Reason: MUSCLE SPASMS Primary Care Physician: Amandeep Loredo [Primary Care Provider] - Please follow up with your Primary Care Physician in: in one week Please Follow Up With: Mandy Robledo MD When: as directed
--- NOTE | 2017-07-08 17:28 | DCINST_ITS ---
- Discharge Diagnoses Current Active Problems: Current Active and Chronic Problems Acute back pain (Acute) You will use the following diet at home:: No restrictions Your food should be the consistency of: Regular Your liquids should be the consistency of: Regular/Thin Discharge Activity: Return to Normal Activity, Use Crutches Weight Bearing Status: Weight bearing as tolerated Allergies/Adverse Reactions: Allergies Penicillins Allergy (Verified 07/03/17 19:25) Anaphylaxis propoxyphene napsylate [From Darvocet-N 100] Allergy (Verified 07/03/17 19:25) Rash hydrocodone bitartrate [From Vicodin] Adverse Reaction (Verified 07/03/17 19:25) Itching latex Adverse Reaction (Verified 07/07/17 00:12) blistering of skin venom-honey bee [bee venom (honey bee)] Adverse Reaction (Verified 07/03/17 19: 25) Chest tightness PLASTIC TAPE Allergy (Uncoded 06/19/17 20:56) Rash IV contrast Adverse Reaction (Uncoded 06/19/17 20:56) Vomiting Medications to take at Discharge Omeprazole [Prilosec] 20 mg PO BID 07/20/15 Oxycodone HCl [Oxycodone HCl ER] 20 mg PO BID PRN 07/22/16 Albuterol Sulfate [Ventolin Hfa] 2 puff IH Q6H PRN PRN 09/30/16 Fluticasone 0.05% [Flonase Nasal [place]] 2 spray NASAL DAILY 09/30/16 Aspirin [Aspirin, Baby] 81 mg PO DAILY@0800 tab.chew 12/31/16 Fluticasone/Salmeterol [Advair 250-50 Diskus] 1 each IH DAILY 12/31/16 Valproic Acid [Depakene] 500 mg PO BID 04/30/17 Diazepam [Valium] 2 mg PO TID PRN PRN #20 tablet 07/08/17 Oxycodone [Oxyir] 5 - 10 mg PO Q6H PRN PRN #20 tablet 07/08/17 The following prescriptions were given: Oxycodone [Oxyir] 5 - 10 mg PO Q6H PRN PRN #20 tablet PRN Reason: Severe Pain (-06/02) Diazepam [Valium] 2 mg PO TID PRN PRN #20 tablet PRN Reason: MUSCLE SPASMS Primary Care Physician: Amandeep Loredo [Primary Care Provider] - Please follow up with your Primary Care Physician in: in one week Please Follow Up With: Mandy Robledo MD When: as directed
[2017-07-10 10:58] LABS: H. PYLORI STOOL AG Negative (Negative)
--- NOTE | 2017-07-10 20:25 | PCM.DC.SUM ---
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 #4 posttraumatic stress disorder #5 cerebrovascular disease - Secondary Discharge Diagnosis Chronic Problems 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 (Chronic) Depression (Chronic) History of lumbar fusion (Chronic) History of stroke without residual deficits (Chronic) IT band syndrome (Chronic) Migraine (Chronic) Nondiabetic gastroparesis (Chronic) PTSD (post-traumatic stress disorder) (Chronic) Seizure disorder (Chronic) 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 Patient complained of lower back pain radiating down her left leg. Workup in the emergency room included a CT of the abdomen and pelvis which was found to be unremarkable, CT lumbar spine showed no evidence of acute pathology only degenerative joint disease. CBC and chemistry profile were unremarkable. Patient was given Dilaudid in the emergency room but her back pain continued and she was unable to ambulate and had to be placed into observation status on MedSurg 3. Patient was treated with IV pain medications, was seen by PT and OT, and ultimately was placed on IV Decadron. Patient continued to have pain and was seen in consultation by pain management who performed a left sacroiliac injection. On 07/08/17, patient was seen and examined felt to be in stable condition for discharge home Discharge Activity: Return to Normal Activity, Use Crutches Weight Bearing Status: Weight bearing as tolerated Home Medications: Medications to take at Discharge Omeprazole [Prilosec] 20 mg PO BID 07/20/15 Oxycodone HCl [Oxycodone HCl ER] 20 mg PO BID PRN 07/22/16 Albuterol Sulfate [Ventolin Hfa] 2 puff IH Q6H PRN PRN 09/30/16 Fluticasone 0.05% [Flonase Nasal [place]] 2 spray NASAL DAILY 09/30/16 Aspirin [Aspirin, Baby] 81 mg PO DAILY@0800 tab.chew 12/31/16 Fluticasone/Salmeterol [Advair 250-50 Diskus] 1 each IH DAILY 12/31/16 Valproic Acid [Depakene] 500 mg PO BID 04/30/17 Diazepam [Valium] 2 mg PO TID PRN PRN #20 tablet 07/08/17 Oxycodone [Oxyir] 5 - 10 mg PO Q6H PRN PRN #20 tablet 07/08/17 Following Prescrptions Were Given to Patient: Oxycodone [Oxyir] 5 - 10 mg PO Q6H PRN PRN #20 tablet PRN Reason: Severe Pain () Diazepam [Valium] 2 mg PO TID PRN PRN #20 tablet PRN Reason: MUSCLE SPASMS Primary Care Physician: Amandeep Loredo [Primary Care Provider] - Please follow up with your Primary Care Physician in: in one week Please Follow Up With: Mandy Robledo MD When: as directed Disposition: Home Minutes spent on discharge:: 25 Patient Condition:: Stable Meaningful Use Info Meaningful Use Diagnoses (Choose all that apply): None applicable
== END 2017-07-08 18:27 | disposition home health service (06) ==
PROVIDERS: Anesthesiology; Admitting Provider Internal Medicine; Emergency Provider Emergency Medicine; Family Provider Family Medicine; PCP Family Medicine; Visit Provider Internal Medicine
DX: G89.29 Other chronic pain (principal); M47.896 Other spondylosis, lumbar region; M24.852 Other specific joint derangements of left hip, not elsewhere classified; G40.909 Epilepsy, unspecified, not intractable, without status epilepticus; F43.12 Post-traumatic stress disorder, chronic; I48.0 Paroxysmal atrial fibrillation; G43.909 Migraine, unspecified, not intractable, without status migrainosus; K31.84 Gastroparesis; F41.8 Other specified anxiety disorders; I10 Essential (primary) hypertension; S39.012A Strain of muscle, fascia and tendon of lower back, initial encounter; X58.XXXA Exposure to other specified factors, initial encounter; Y93.89 Activity, other specified; Y92.9 Unspecified place or not applicable; E66.9 Obesity, unspecified; Z68.30 Body mass index [BMI] 30.0-30.9, adult; Z79.899 Other long term (current) drug therapy; Z79.82 Long term (current) use of aspirin; Z86.73 Personal history of transient ischemic attack (TIA), and cerebral infarction without residual deficits; Z98.1 Arthrodesis status; Z71.3 Dietary counseling and surveillance; Z85.528 Personal history of other malignant neoplasm of kidney; I25.2 Old myocardial infarction; K21.9 Gastro-esophageal reflux disease without esophagitis; F17.210 Nicotine dependence, cigarettes, uncomplicated
CPT/HCPCS: G0259; 36415; 71010; 72100; 72202; 73502; 74176; 76000; 76377; 80048; 80307; 85025; 85027; 85730; 94640; 96361; 96372; 96374; 96375; 96376; 97110; 97116; 97162; 97166; 97530; 97535; 99218; 99285; 99406; J7030; Q9967; A4216; G0378; G8978; G8979; G8987; G8988; J2405

== ENCOUNTER 2017-10-06 20:58 | Inpatient (IN) | payer MEDICARE, SELFPAY ==
[2017-10-06 20:59] VITALS: BP 129/99; PULSE 117; RESP 16; TEMP 36.1; O2SAT 98; BMI 30.5
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
[2017-10-06] MEDS: 0.9% Normal Saline 1,000 ML 150 ML IV (22:05)
[2017-10-06] MEDS: Ondansetron 4 MG/2 ML Vial IV ×2 (22:05→23:51)
[2017-10-06 22:20] LABS: AST(SGOT) 21 U/L (15-37); Alanine Aminotransfer ALT/SGPT 25 U/L (13-56); Albumin, Serum 3.8 g/dL (3.2-5.0); Alkaline Phosphatase 148 U/L (45-117); Anion Gap 10 (5-15); BUN 9 mg/dL (7-18); BUN/Creat Ratio 11.4 RATIO (10-20); Bilirubin, Direct 0.06 mg/dL (0.00-0.30); Calcium,Total 8.7 mg/dL (8.5-10.1); Chloride 110 mmol/L (98-107); Creatinine, Serum 0.79 mg/dL (0.55-1.02); EST Glomerular Filtration Rate 82 mL/min (>60); Est Glom Filt Rate - Afr Amer 100 mL/min (>60); Estimated Creatinine Clearance 87.85 ml/min; Globulin 3.6 g/dL (2.2-4.2); Glucose 93 mg/dL (74-106); Lipase 203 U/L (73-393); Potassium 3.9 mmol/L (3.5-5.1); Protein, Total 7.4 g/dL (6.4-8.2); Sodium Level 143 mmol/L (136-145)
[2017-10-06 22:29] LABS: Absolute Lymphocyte Count 3.13 X10^3/ul (0.83-4.51); Absolute Neutrophil Count 4.7 X10^3/uL (2.0-7.7); Basophil# 0.07 X10^3/uL; Basophil% 0.8 % (0-1); Eosinophils% 1.2 % (0-5); Hematocrit 49.1 % (37-47); Hemoglobin 16.4 g/dl (12.0-15.0); Lymphocyte # 3.13 X10^3/ul (4.0); Lymphocyte % 36.1 % (19-41); Mean Corp Hgb Conc 33.4 g/gl (32-36); Mean Corpuscular Volume 95.9 fL (81-99); Mean Platelet Vol. 10.3 fl (6.2-12.0); Monocyte# 0.68 X10^3/uL; Monocyte% 7.8 % (0-10); Neutrophil # 4.68 X10^3/uL (2.7-7.7); Platelet Count 319 K/mm3 (150-450); RBC Distribution Width CV 12.8 % (11.6-14.6); RBC Distribution Width SD 44.7 fl (35.1-43.9); Red Blood Count 5.12 M/mm3 (4.2-5.4); White Blood Count 8.7 K/mm3 (4.4-11.0)
[2017-10-06 22:30] LABS: POSITIVE COUNT NO; POSITIVE DIFFERENTIAL NO; POSITIVE MORPHOLOGY NO
--- NOTE | 2017-10-06 23:29 | ED.RN ---
DR. FIGUEREDO WAS MADE AWARE BY THIS NURSE THAT PATIENT WAS HAVING PAIN AGAIN. PAIN LEVEL 7/10. THIS NURSE IS WAITING FOR NEW ORDERS.
[2017-10-06 23:54] VITALS: BP 131/99; PULSE 87; RESP 18; O2SAT 100
[2017-10-07] VITALS (10 sets, daily range): BP systolic 123–141; BP diastolic 66–91; PULSE 72–88; RESP 16–18; TEMP 36–36.9; O2SAT 93–97
--- NOTE | 2017-10-07 00:46 | ED.DCSUM_ITS ---
- ER Visit Summary Date of Service: 10/07/17 Chief Complaint: Abdominal pain and bloating History of Present Illness: The patient is a 47 F who reports feeling like food gets caught in her throat over the past 3 days or so. Patient states she is forced herself to vomit. She had similar symptoms before she had her gastric pacemaker placed. This was placed 5 years ago at [facility]. Patient states she is scheduled to see her surgeon in [place] next month to check the battery on the gastric stimulator. Patient does not feel the tingling in her stomach that she can normally feel from the stimulator. She believes it is stopped working. Physical Examination: Vital signs are significant for heart rate of 117, otherwise unremarkable. Patient sitting upright in bed no acute distress. Heart is regular rate and rhythm. Lung sounds are clear. Abdomen is soft with mild tenderness in the left lower quadrant near where her gastric stimulator is placed. There is no guarding or rebound. She has very hypoactive bowel sounds. Test Results: CBC reveals hemoglobin concentrated at 16.4. Chemistry studies are unremarkable. LFTs and lipase are normal. CT scan of the flank reveals nonobstructing stones in the right kidney. Gastric stimulator is noted. On my review of images there does appear to be food particles and air in the stomach. There is no sign of obstruction. Emergency Department Course and Treatment: Patient is given morphine, Zofran, and IV fluids. At this time I do not have the ability to test her gastric stimulator. I have spoken with [facility] transfer line who is contacting her surgeon for transfer. Treatment Plan: [] Disposition: Transfer Impression: 1. Vomiting 2. Possible gastric stimulator malfunction This note was generated with [employer] dictation software. It may contain incorrect words, spelling, and punctuation that were not noted in review of the chart prior to signing ED Disposition - Plan for ED Patient: Chief Complaint: Abd Pain Referrals: Amandeep Loredo [Primary Care Provider] -
--- NOTE | 2017-10-07 00:53 | RAD_ITS ---
STUDY: X-RAY - ABDOMEN/PELVIS REASON FOR EXAM: Female, 47 years old. Status post nasogastric tube placement. TECHNIQUE: Single AP view of the abdomen / pelvis. COMPARISON: None. FINDINGS: Nasogastric tube tip extends to the region of the pylorus of the stomach. Nondilated air-filled loops of small bowel in the midabdomen. Mild gaseous distention of the colon. No mucosal wall thickening. No free intraperitoneal air. The visualized liver, spleen and kidneys are grossly normal in size and morphology. No intra-abdominal calcification. Normal soft tissue structures. Normal visualized osseous structures. RAD/Abdomen Single View (Portable) IMPRESSION: Nonobstructive bowel gas pattern Electronically Signed: Keegan Knowles MD at 2:01 EST Tel , Service support ,
--- NOTE | 2017-10-07 01:36 | ED.RN ---
RADHA DONE AND DR. BANUELOS TOLD THIS NURSE THAT THE NG IS POSITIONED PROPERLY IN THE STOMACH.
[2017-10-07] MEDS: HYDROmorphone 1 MG/ML Syringe 2 MG IV ×2 (02:01→03:00)
--- NOTE | 2017-10-07 02:01 | PCM.HP.STD ---
Problem List (1) PTSD (post-traumatic stress disorder) Status: Chronic (2) History of stroke without residual deficits Status: Chronic (3) Depression Status: Chronic (4) Migraine Status: Chronic (5) Seizure disorder Status: Chronic (6) gastric pacemaker Status: Chronic (7) Nondiabetic gastroparesis Status: Chronic (8) 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 Status: Chronic History of Present Illness Date of Admission: 10/07/17 Chief Complaint: Nausea, vomiting, abdominal bloating and pain. The patient is a 47 year old F with past medical history as mentioned above presented to the emergency room because of nausea, vomiting, abdominal pain and bloating. Her illness started 3 days ago with nausea and vomiting, associated with abdominal distention/bloating and today, she started having abdominal pain. Today morning, she continued to have nausea and vomiting, started to have abdominal pain, in the mid region of the abdomen, more on the left lower side, sharp pain, 8 out of 10 in severity, not radiating, associated with intractable nausea and vomiting as well as increasing abdominal distention and bloating, and without aggravating or relieving factors. She denies fever or chills. She denied constipation or diarrhea. She mentioned that she has been having bowel movements with small amount of normal stool. She had a history of idiopathic/nondiabetic gastroparesis status post gastric pacemaker placement 5 years ago. According to the patient, the settings of the gastric pacemaker is up to the maximum and she is still symptomatic from time to time. In the emergency room, apart from tachycardia upon arrival to ER, her other vitals were stable. She received 2 doses of IV morphine and 2 doses of IV hydromorphone for abdominal pain without significant improvement. Her routine blood work is remarkable for hemoglobin of 16.4 indicating hemoconcentration/dehydration, otherwise normal. LFT and lipase were normal. CT scan abdomen and pelvis without contrast revealed nonobstructive 1-2 mm right renal parenchymal stone, otherwise unremarkable. X-ray abdomen revealed nonobstructive bowel pattern. She is being admitted for intractable nausea and vomiting/intractable abdominal pain due to idiopathic gastroparesis as well as dehydration. 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) Nondiabetic gastroparesis (Chronic) 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 (Chronic) IT band syndrome (Chronic) Allergies Penicillins Allergy (Verified 10/06/17 21:03) Anaphylaxis propoxyphene napsylate [From Darvocet-N 100] Allergy (Verified 10/06/17 21:03) Rash hydrocodone bitartrate [From Vicodin] Adverse Reaction (Verified 10/06/17 21:03) Itching latex Adverse Reaction (Verified 10/06/17 21:03) blistering of skin venom-honey bee [bee venom (honey bee)] Adverse Reaction (Verified 10/06/17 21:03) Chest tightness PLASTIC TAPE Allergy (Uncoded 10/06/17 21:03) Rash IV contrast Adverse Reaction (Uncoded 10/06/17 21:03) Vomiting Home Medications: Ambulatory Orders Medication Instructions Recorded Omeprazole [Prilosec] 20 mg PO BID 07/20/15 Oxycodone HCl [Oxycodone HCl ER] 20 mg PO BID PRN 07/22/16 Albuterol Sulfate [Ventolin Hfa] 2 puff IH Q6H PRN PRN 09/30/16 Fluticasone 0.05% [Flonase Nasal 2 spray NASAL DAILY 09/30/16 [place]] Aspirin [Aspirin, Baby] 81 mg PO DAILY@0800 tab.chew 12/31/16 Fluticasone/Salmeterol [Advair 1 each IH PRN PRN 12/31/16 250-50 Diskus] Levetiracetam [Keppra] 1,000 mg PO Q12H 09/06/17 Ondansetron [Zofran Odt] 4 mg PO Q8H PRN PRN #10 tablet 09/06/17 Surgical History: appendectomy, cholecystectomy, hysterectomy, - - Multiple abdominal surgeries, including for kidney tumor, hysterectomy, cholecystectomy, endometriosis, brain aneursyms clamped and coiled. 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 Denies: Chills, Fever, Weakness Eyes: Denies: Blurred vision, Double vision, Drainage, Redness HEENT: Denies: Difficulty Hearing, Ear Pain, Eye Pain, Nasal Congestion, Sore Throat Cardiovascular: Denies: Chest Pain, Chest Pressure, Chest Tightness, Heaviness, Light Headedness, Palpitations, Syncope Respiratory: Denies: Cough, Pleuritic Pain, Shortness of Breath, Sputum production, Wheezing Gastrointestinal: Reports: Abdominal Pain, Nausea, Vomiting. Denies: Constipation, Diarrhea, Hematochezia, Melena Genitourinary: Denies: Dysuria, Frequency, Hematuria Musculoskeletal: Denies: Arm Pain, Back Pain, Foot Pain Skin: Denies: Dryness, Rash Neurological: Denies: Balance problems, Double vision, Change in Speech, Slurred speech, Confusion, Focal weakness, Incoordination, Numbness, Tingling Psychiatric: Reports: Depression. Denies: Anxiety VTE Information - Inpt Only VTE Present on Admission: No VTE Mechan Device Prophylaxis: None VTE Pharm Prophylaxis ordered?: No - Physical Exam General: Alert, Oriented x3, Cooperative, - - Symptoms tearful, and severe distress because of abdominal pain and NG tube. HEENT: Atraumatic, PERRLA, EOMI Oral: Moist Mucosa, No Gingival or Mucosal Lesions/ Ulcerations Neck: Supple, No JVD, Negative Carotid Bruits, Trachea Midline, Thyroid Normal Size and Texture Lungs: Clear to auscultation, No rhonchi, No wheeze, No rales, Diminished Cardiovascular: Regular rate, Regular Rhythm, Normal S1, Normal S2, No murmurs, PMI Normal Abdomen: No Hepato-splenomegaly, Hypoactive Bowel Sounds, Distended, Tender Extremities: No clubbing, No cyanosis, No edema Skin: No rashes, No breakdown Lymphatic: No Cervical, Supraclavicular, or Inguinal Adenopathy Neurological: Cranial nerves II-XII grossly intact, Motor Exam 5/5 strength throughout Psych/Mental Status: Normal Affect, Appropriate, Alert and oriented to time, place, person, mood and affect Vital Signs Temp Pulse Resp BP Pulse Ox 96.8 F L 88 18 141/91 H 97 10/07/17 01:39 10/07/17 01:39 10/07/17 01:39 10/07/17 01:39 10/07/17 01:31 Laboratory Tests 10/06/17 10/06/17 Range/Units 21:20 21:20 WBC 8.7 (4.4-11.0) K/mm3 RBC 5.12 (4.2-5.4) M/mm3 Hgb 16.4 H (12.0-15.0) g/dl Hct 49.1 H (37-47) % MCV 95.9 (81-99) fL MCH 32.0 (27.0-32.0) pg MCHC 33.4 (32-36) g/gl RDW 12.8 (11.6-14.6) % RDW Differential 44.7 H (35.1-43.9) fl Plt Count 319 (150-450) K/mm3 MPV 10.3 (6.2-12.0) fl Immature Gran % (Auto) 0.100 (0.0-0.9) % Neut % (Auto) 54.0 (47-70) % Lymph % (Auto) 36.1 (19-41) % [place] % (Auto) 7.8 (0-10) % Eos % (Auto) 1.2 (0-5) % Baso % (Auto) 0.8 (0-1) % Absolute Neuts (auto) 4.7 (2.0-7.7) X10^3/uL Absolute Lymphs (auto) 3.13 (0.83-4.51) X10^3/ul Total Counted Not Reportable Sodium 143 (136-145) mmol/L Potassium 3.9 (3.5-5.1) mmol/L Chloride 110 H (98-107) mmol/L Carbon Dioxide 23.0 (21.0-32.0) mmol/L Anion Gap 10 (5-15) BUN 9 (7-18) mg/dL Creatinine 0.79 (0.55-1.02) mg/dL Estim Creat Clear Calc 87.85 ml/min Est GFR (MDRD) Af Amer 100 (>60) mL/min Est GFR (MDRD) Non-Af 82 (>60) mL/min BUN/Creatinine Ratio 11.4 (10-20) RATIO Glucose 93 (74-106) mg/dL Calcium 8.7 (8.5-10.1) mg/dL Total Bilirubin 0.20 (0.20-1.00) mg/dL Direct Bilirubin 0.06 (0.00-0.30) mg/dL AST 21 (15-37) U/L ALT 25 (13-56) U/L Alkaline Phosphatase 148 H (45-117) U/L Total Protein 7.4 (6.4-8.2) g/dL Albumin 3.8 (3.2-5.0) g/dL Globulin 3.6 (2.2-4.2) g/dL Lipase 203 (73-393) U/L Clinical Impression(s) from Imaging Studies Abdomen/Pelvis CT 10/06/17 21:45 IMPRESSION: Non obstructive 1 to 2 mm right renal parenchymal stones. Electronically Signed: José Antonio Ross MD at 23:02 EST , Service support , KUB X-Ray 10/07/17 00:53 IMPRESSION: Nonobstructive bowel gas pattern Electronically Signed: Keegan Knowles MD at 2:01 EST Tel , Service support , Assessment/Plan This is 47 years old female patient presented to the emergency room because of nausea, vomiting, abdominal distention and abdominal pain in context of history of idiopathic gastroparesis status post gastric pacemaker and she is being admitted for intractable nausea and vomiting as well as intractable abdominal pain without improvement with multiple doses of IV morphine and IV hydromorphone in the emergency room. #1 intractable abdominal pain/intractable nausea and vomiting: Attributed to gastroparesis. CT scan abdomen revealed nonobstructive right parenchymal kidney stone which is likely not causing any symptoms. X-ray abdomen showed no evidence of bowel obstruction. Her vital signs are stable. Routine blood work is remarkable for hemoconcentration, otherwise normal. LFT and lipase were normal. Plan: Admit to MedSurg floor, keep on n.p.o., continue NG tube with low suction, IV fluids, IV hydromorphone as needed for pain, IV Zofran and Phenergan as needed, replace electrolytes as appropriate, repeat x-ray abdomen tomorrow morning, repeat CBC and BMP tomorrow morning. We may consider general surgery consult if conservative treatment failed. #2 dehydration: Secondary to intractable nausea and vomiting. It is indicated by elevated hemoglobin/hemoconcentration. BUN and creatinine are normal. Plan: IV fluids as above, IV antiemetics, BMP tomorrow morning. #3 idiopathic gastroparesis: Status post gastric pacemaker. According to the patient, the pacemaker is set up to the maximum settings. Her surgeon was contacted by the ER physician eloy and recommended conservative treatment at this point without need for surgical intervention. #4 seizure disorder: Continue Keppra. #5 depression/PTSD: She is not on any medication at this point. #6 history of stroke: Without residual deficit. She is only on aspirin. #7 history of brain aneurysm, status post clamping/coiling. Stable, no acute issues. #8 history of paroxysmal A. fib: She is in normal sinus rhythm on telemetry in the ER. Heart rate stable. #9 DVT prophylaxis: Low risk patient, no prophylaxis indicated. This note was generated with [employer] dictation software. It may contain incorrect words, spelling, and punctuation that were not noted in checking the note before signing. Code Visit Inpatient E&M: 74060 Init Hosp L3
--- NOTE | 2017-10-07 02:14 | HP.PCM_ITS ---
Problem List (1) PTSD (post-traumatic stress disorder) Status: Chronic (2) History of stroke without residual deficits Status: Chronic (3) Depression Status: Chronic (4) Migraine Status: Chronic (5) Seizure disorder Status: Chronic (6) gastric pacemaker Status: Chronic (7) Nondiabetic gastroparesis Status: Chronic (8) 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 Status: Chronic History of Present Illness Date of Admission: 10/07/17 Chief Complaint: Nausea, vomiting, abdominal bloating and pain. The patient is a 47 year old F with past medical history as mentioned above presented to the emergency room because of nausea, vomiting, abdominal pain and bloating. Her illness started 3 days ago with nausea and vomiting, associated with abdominal distention/bloating and today, she started having abdominal pain. Today morning, she continued to have nausea and vomiting, started to have abdominal pain, in the mid region of the abdomen, more on the left lower side, sharp pain, 8 out of 10 in severity, not radiating, associated with intractable nausea and vomiting as well as increasing abdominal distention and bloating, and without aggravating or relieving factors. She denies fever or chills. She denied constipation or diarrhea. She mentioned that she has been having bowel movements with small amount of normal stool. She had a history of idiopathic/nondiabetic gastroparesis status post gastric pacemaker placement 5 years ago. According to the patient, the settings of the gastric pacemaker is up to the maximum and she is still symptomatic from time to time. In the emergency room, apart from tachycardia upon arrival to ER, her other vitals were stable. She received 2 doses of IV morphine and 2 doses of IV hydromorphone for abdominal pain without significant improvement. Her routine blood work is remarkable for hemoglobin of 16.4 indicating hemoconcentration/ dehydration, otherwise normal. LFT and lipase were normal. CT scan abdomen and pelvis without contrast revealed nonobstructive 1-2 mm right renal parenchymal stone, otherwise unremarkable. X-ray abdomen revealed nonobstructive bowel pattern. She is being admitted for intractable nausea and vomiting/intractable abdominal pain due to idiopathic gastroparesis as well as dehydration. 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) Nondiabetic gastroparesis (Chronic) 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 (Chronic) IT band syndrome (Chronic) Allergies Penicillins Allergy (Verified 10/06/17 21:03) Anaphylaxis propoxyphene napsylate [From Darvocet-N 100] Allergy (Verified 10/06/17 21:03) Rash hydrocodone bitartrate [From Vicodin] Adverse Reaction (Verified 10/06/17 21:03) Itching latex Adverse Reaction (Verified 10/06/17 21:03) blistering of skin venom-honey bee [bee venom (honey bee)] Adverse Reaction (Verified 10/06/17 21: 03) Chest tightness PLASTIC TAPE Allergy (Uncoded 10/06/17 21:03) Rash IV contrast Adverse Reaction (Uncoded 10/06/17 21:03) Vomiting Home Medications: Ambulatory Orders Medication Instructions Recorded Omeprazole [Prilosec] 20 mg PO BID 07/20/15 Oxycodone HCl [Oxycodone HCl ER] 20 mg PO BID PRN 07/22/16 Albuterol Sulfate [Ventolin Hfa] 2 puff IH Q6H PRN PRN 09/30/16 Fluticasone 0.05% [Flonase Nasal 2 spray NASAL DAILY 09/30/16 [place]] Aspirin [Aspirin, Baby] 81 mg PO DAILY@0800 tab.chew 12/31/16 Fluticasone/Salmeterol [Advair 1 each IH PRN PRN 12/31/16 250-50 [place]] Levetiracetam [Keppra] 1,000 mg PO Q12H 09/06/17 Ondansetron [Zofran Odt] 4 mg PO Q8H PRN PRN #10 tablet 09/06/17 Surgical History: appendectomy, cholecystectomy, hysterectomy, - - Multiple abdominal surgeries, including for kidney tumor, hysterectomy, cholecystectomy, endometriosis, brain aneursyms clamped and coiled. 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 COLLECTION CORRESPONDENT History: No pertinent COLLECTION CORRESPONDENT history Lives: Spouse/ Significant Other Smoking Status: Former smoker Alcohol: None Drugs: None - *Family History Maternal History Items: Unknown Paternal History Items: No pertinent history Review of Systems Constitutional: Reports: Anorexia. Denies: Chills, Fever, Weakness Eyes: Denies: Blurred vision, Double vision, Drainage, Redness HEENT: Denies: Difficulty Hearing, Ear Pain, Eye Pain, Nasal Congestion, Sore Throat Cardiovascular: Denies: Chest Pain, Chest Pressure, Chest Tightness, Heaviness, Light Headedness, Palpitations, Syncope Respiratory: Denies: Cough, Pleuritic Pain, Shortness of Breath, Sputum production, Wheezing Gastrointestinal: Reports: Abdominal Pain, Nausea, Vomiting. Denies: Constipation, Diarrhea, Hematochezia, Melena Genitourinary: Denies: Dysuria, Frequency, Hematuria Musculoskeletal: Denies: Arm Pain, Back Pain, Foot Pain Skin: Denies: Dryness, Rash Neurological: Denies: Balance problems, Double vision, Change in Speech, Slurred speech, Confusion, Focal weakness, Incoordination, Numbness, Tingling Psychiatric: Reports: Depression. Denies: Anxiety VTE Information - Inpt Only VTE Present on Admission: No VTE Mechan Device Prophylaxis: None VTE Pharm Prophylaxis ordered?: No - Physical Exam General: Alert, Oriented x3, Cooperative, - - Symptoms tearful, and severe distress because of abdominal pain and NG tube. HEENT: Atraumatic, PERRLA, EOMI Oral: Moist Mucosa, No Gingival or Mucosal Lesions/ Ulcerations Neck: Supple, No JVD, Negative Carotid Bruits, Trachea Midline, Thyroid Normal Size and Texture Lungs: Clear to auscultation, No rhonchi, No wheeze, No rales, Diminished Cardiovascular: Regular rate, Regular Rhythm, Normal S1, Normal S2, No murmurs, PMI Normal Abdomen: No Hepato-splenomegaly, Hypoactive Bowel Sounds, Distended, Tender Extremities: No clubbing, No cyanosis, No edema Skin: No rashes, No breakdown Lymphatic: No Cervical, Supraclavicular, or Inguinal Adenopathy Neurological: Cranial nerves II-XII grossly intact, Motor Exam 5/5 strength throughout Psych/Mental Status: Normal Affect, Appropriate, Alert and oriented to time, place, person, mood and affect Vital Signs Temp Pulse Resp BP Pulse Ox 96.8 F L 88 18 141/91 H 97 10/07/17 01:39 10/07/17 01:39 10/07/17 01:39 10/07/17 01:39 10/07/17 01:31 Laboratory Tests 3 10/06/17 10/06/17 Range/Units 21:20 21:20 WBC 8.7 (4.4-11.0) K/mm3 RBC 5.12 (4.2-5.4) M/mm3 Hgb 16.4 H (12.0-15.0) g/dl Hct 49.1 H (37-47) % MCV 95.9 (81-99) fL MCH 32.0 (27.0-32.0) pg MCHC 33.4 (32-36) g/gl RDW 12.8 (11.6-14.6) % RDW Differential 44.7 H (35.1-43.9) fl Plt Count 319 (150-450) K/mm3 MPV 10.3 (6.2-12.0) fl Immature Gran % (Auto) 0.100 (0.0-0.9) % Neut % (Auto) 54.0 (47-70) % Lymph % (Auto) 36.1 (19-41) % [place] % (Auto) 7.8 (0-10) % Eos % (Auto) 1.2 (0-5) % Baso % (Auto) 0.8 (0-1) % Absolute Neuts (auto) 4.7 (2.0-7.7) X10^3/uL Absolute Lymphs (auto) 3.13 (0.83-4.51) X10^3/ul Total Counted Not Reportable Sodium 143 (136-145) mmol/L Potassium 3.9 (3.5-5.1) mmol/L Chloride 110 H (98-107) mmol/L Carbon Dioxide 23.0 (21.0-32.0) mmol/L Anion Gap 10 (5-15) BUN 9 (7-18) mg/dL Creatinine 0.79 (0.55-1.02) mg/dL Estim Creat Clear Calc 87.85 ml/min Est GFR (MDRD) Af Amer 100 (>60) mL/min Est GFR (MDRD) Non-Af 82 (>60) mL/min BUN/Creatinine Ratio 11.4 (10-20) RATIO Glucose 93 (74-106) mg/dL Calcium 8.7 (8.5-10.1) mg/dL Total Bilirubin 0.20 (0.20-1.00) mg/dL Direct Bilirubin 0.06 (0.00-0.30) mg/dL AST 21 (15-37) U/L ALT 25 (13-56) U/L Alkaline Phosphatase 148 H (45-117) U/L Total Protein 7.4 (6.4-8.2) g/dL Albumin 3.8 (3.2-5.0) g/dL Globulin 3.6 (2.2-4.2) g/dL Lipase 203 (73-393) U/L Clinical Impression(s) from Imaging Studies Abdomen/Pelvis CT 10/06/17 21:45 IMPRESSION: Non obstructive 1 to 2 mm right renal parenchymal stones. Electronically Signed: José Antonio Ross MD at 23:02 EST , Service support , KUB X-Ray 10/07/17 00:53 IMPRESSION: Nonobstructive bowel gas pattern Electronically Signed: Keegan Knowles MD at 2:01 EST Tel , Service support , Assessment/Plan This is 47 years old female patient presented to the emergency room because of nausea, vomiting, abdominal distention and abdominal pain in context of history of idiopathic gastroparesis status post gastric pacemaker and she is being admitted for intractable nausea and vomiting as well as intractable abdominal pain without improvement with multiple doses of IV morphine and IV hydromorphone in the emergency room. #1 intractable abdominal pain/intractable nausea and vomiting: Attributed to gastroparesis. CT scan abdomen revealed nonobstructive right parenchymal kidney stone which is likely not causing any symptoms. X-ray abdomen showed no evidence of bowel obstruction. Her vital signs are stable. Routine blood work is remarkable for hemoconcentration, otherwise normal. LFT and lipase were normal. Plan: Admit to MedSurg floor, keep on n.p.o., continue NG tube with low suction, IV fluids, IV hydromorphone as needed for pain, IV Zofran and Phenergan as needed, replace electrolytes as appropriate, repeat x-ray abdomen tomorrow morning, repeat CBC and BMP tomorrow morning. We may consider general surgery consult if conservative treatment failed. #2 dehydration: Secondary to intractable nausea and vomiting. It is indicated by elevated hemoglobin/hemoconcentration. BUN and creatinine are normal. Plan : IV fluids as above, IV antiemetics, BMP tomorrow morning. #3 idiopathic gastroparesis: Status post gastric pacemaker. According to the patient, the pacemaker is set up to the maximum settings. Her surgeon was contacted by the ER physician eloy and recommended conservative treatment at this point without need for surgical intervention. #4 seizure disorder: Continue Keppra. #5 depression/PTSD: She is not on any medication at this point. #6 history of stroke: Without residual deficit. She is only on aspirin. #7 history of brain aneurysm, status post clamping/coiling. Stable, no acute issues. #8 history of paroxysmal A. fib: She is in normal sinus rhythm on telemetry in the ER. Heart rate stable. #9 DVT prophylaxis: Low risk patient, no prophylaxis indicated. This note was generated with [employer] dictation software. It may contain incorrect words, spelling, and punctuation that were not noted in checking the note before signing. Code Visit Inpatient E&M: 41709 Init Hosp L3
--- NOTE | 2017-10-07 03:00 | ED.RN ---
PATIENT'S IV WENT BAD AND PATIENT DID NOT RECEIVE HER FIRST DOSE OF DILAUDID. DR. BANUELOS MADE AWARE AND HE GAVE ME A VERBAL ORDER TO ORDER ANOTHER DOSE. IV RESTARTED IN LEFT HAND.
[2017-10-07] MEDS: Lactated Ringers 1,000 ML 100 ML IV ×3 (04:05→22:29)
--- NOTE | 2017-10-07 05:55 | RAD_ITS ---
STUDY: X-RAY - ABDOMEN/PELVIS REASON FOR EXAM: Female, 47 years old. Nausea and vomiting. TECHNIQUE: Two AP supine views of the abdomen and pelvis. COMPARISON: Comparison is made with prior examination done earlier in the day. FINDINGS: Normal visualized lung bases. An oral gastric tube is seen. The tip is in the distal portion of the stomach There is an unremarkable bowel gas pattern. The patient is status post cholecystectomy. Normal soft tissue structures. Prior integrated screw fixation of the lower lumbar spine. A TENS unit is seen overlying the left iliac bone. RAD/Abdomen Single View (Portable) IMPRESSION: The tip of the oral gastric tube is in the distal portion of the stomach. The gas pattern is unremarkable. Electronically Signed: Luiz Neff MD at 8:41 EST Tel [phone], Service support ,
[2017-10-07] MEDS: Ondansetron 4 MG/2 ML Vial IV (07:30)
[2017-10-07] MEDS: HYDROmorphone 1 MG/ML Syringe IV (07:30)
--- NOTE | 2017-10-07 10:38 | PCM.PN.HOSP ---
Patient Problems: Active and Suspected Problems Gastroparesis (Acute) Subjective: Abdomen is less distended today. Does have the NG draining fluid currently. Patient is concerned that her gastric pacemaker battery has stopped working which is why she is having gastroparesis at this time. Vitals/I&O's: Vital Signs Temp Pulse Resp BP Pulse Ox 36.6 C 78 18 139/80 H 94 10/07/17 07:19 10/07/17 04:11 10/07/17 08:23 10/07/17 07:19 10/07/17 08:23 Oxygen Delivery Method Room Air Weight: 89.6 kg Body Mass Index (BMI) 30.0 Intake and Output for Last 24 Hours 10/05/17 10/06/17 10/07/17 23:59 23:59 23:59 Intake Total 100 / 100 Output Total 125 / 125 Balance -25 / -25 General: Alert, Cooperative, No apparent distress, - - tearful HEENT: Atraumatic, Normocephalic Neck: No Nodes, Thyroid Normal Size and Texture Lungs: Clear to auscultation, Normal air movement, No rhonchi, No wheeze Cardiovascular: Regular rate, Regular Rhythm, Normal S1, Normal S2, No murmurs Abdomen: Soft, No Hepato-splenomegaly, Distended, Tender Extremities: No edema, No Calf Tenderness Skin: No rashes, No breakdown Psych/Mental Status: Normal Affect, Appropriate Current Medications Albuterol Sulfate (Ventolin Aerosols) 2.5 mg INHALATION Q4H PRN PRN PRN Reason: Shortness of breath, wheezing Hydromorphone HCl (Dilaudid) 1 - 2 mg IV Q4H PRN PRN PRN Reason: SEVERE PAIN (6-10/10) Last Admin: 10/07/17 07:30 Dose: 1 mg Famotidine 20 mg/ Sodium (Chloride) 10 mls @ 300 mls/hr IV Q12 ADAM Last Admin: 10/07/17 09:43 Dose: 300 mls/hr Lactated Ringer's () 1,000 mls @ 100 mls/hr IV .Q10H ADAM Last Admin: 10/07/17 04:05 Dose: 100 mls/hr Levetiracetam (Keppra) 1,000 mg in 100 mls @ 400 mls/hr IV Q12 ADAM Last Admin: 10/07/17 09:43 Dose: 400 mls/hr Ondansetron HCl (Zofran) 4 mg IV Q6H PRN PRN PRN Reason: NAUSEA/VOMITING Last Admin: 10/07/17 07:30 Dose: 4 mg Oxycodone HCl (Oxycontin) 20 mg PO BID PRN PRN Reason: PAIN Promethazine HCl (Phenergan (Ll)) 6.25 mg IV Q6H PRN PRN PRN Reason: NAUSEA/VOMITING Sodium Chloride () 5 - 30 ml IV UD PRN PRN Reason: SALINE FLUSH Assessment/Plan Active and Suspected Problems Gastroparesis (Acute) 1. Gastroparesis This is despite having a gastric pacemaker Patient still with abdominal pain. NG tube was placed and has been suctioning out fluid. By the patient about minimizing to initiating medications, primarily in the narcotics that she is on. I told her that I am going to scale back her narcotics as I feel that they could be prolonging her gastroparesis episode. Understandably, the patient has pain and I am not can discontinue the narcotics and Ambien cut the dose and cut the frequency. 2. Seizure disorder Torrey switched to IV while she is n.p.o. 3. Gastroesophageal reflux disease Patient states that the Prilosec that she takes at home is insufficient. Patient still with reflux symptoms now and on Pepcid. Switch over to IV Protonix for now. Upon discharge I would recommend Protonix 40 mg twice daily additionally, I recommend patient be Sitting upright as much as possible rather than supine as that may help with some of her reflux symptoms. 4. DVT prophylaxis with SCDs. Greater than 35 minutes of which greater than 50% of time was counseling the patient on her gastroparesis and potentiating medications as well as discussing about her reflux symptoms and changing her medications from Prilosec to Protonix. Code Visit Inpatient E&M: 87635 Subs Hosp L3
--- NOTE | 2017-10-07 10:44 | PN_ITS ---
Patient Problems: Active and Suspected Problems Gastroparesis (Acute) Subjective: Abdomen is less distended today. Does have the NG draining fluid currently. Patient is concerned that her gastric pacemaker battery has stopped working which is why she is having gastroparesis at this time. Vitals/I&O's: Vital Signs Temp Pulse Resp BP Pulse Ox 36.6 C 78 18 139/80 H 94 10/07/17 07:19 10/07/17 04:11 10/07/17 08:23 10/07/17 07:19 10/07/17 08:23 Oxygen Delivery Method Room Air Weight: 89.6 kg Body Mass Index (BMI) 30.0 Intake and Output for Last 24 Hours 10/05/17 10/06/17 10/07/17 23:59 23:59 23:59 Intake Total 100 / 100 Output Total 125 / 125 Balance -25 / -25 General: Alert, Cooperative, No apparent distress, - - tearful HEENT: Atraumatic, Normocephalic Neck: No Nodes, Thyroid Normal Size and Texture Lungs: Clear to auscultation, Normal air movement, No rhonchi, No wheeze Cardiovascular: Regular rate, Regular Rhythm, Normal S1, Normal S2, No murmurs Abdomen: Soft, No Hepato-splenomegaly, Distended, Tender Extremities: No edema, No Calf Tenderness Skin: No rashes, No breakdown Psych/Mental Status: Normal Affect, Appropriate Current Medications Albuterol Sulfate (Ventolin Aerosols) 2.5 mg INHALATION Q4H PRN PRN PRN Reason: Shortness of breath, wheezing Hydromorphone HCl (Dilaudid) 1 - 2 mg IV Q4H PRN PRN PRN Reason: SEVERE PAIN (6-10/10) Last Admin: 10/07/17 07:30 Dose: 1 mg Famotidine 20 mg/ Sodium (Chloride) 10 mls @ 300 mls/hr IV Q12 ADAM Last Admin: 10/07/17 09:43 Dose: 300 mls/hr Lactated Ringer's () 1,000 mls @ 100 mls/hr IV .Q10H ADAM Last Admin: 10/07/17 04:05 Dose: 100 mls/hr Levetiracetam (Keppra) 1,000 mg in 100 mls @ 400 mls/hr IV Q12 ADAM Last Admin: 10/07/17 09:43 Dose: 400 mls/hr Ondansetron HCl (Zofran) 4 mg IV Q6H PRN PRN PRN Reason: NAUSEA/VOMITING Last Admin: 10/07/17 07:30 Dose: 4 mg Oxycodone HCl (Oxycontin) 20 mg PO BID PRN PRN Reason: PAIN Promethazine HCl (Phenergan (Ll)) 6.25 mg IV Q6H PRN PRN PRN Reason: NAUSEA/VOMITING Sodium Chloride () 5 - 30 ml IV UD PRN PRN Reason: SALINE FLUSH Assessment/Plan Active and Suspected Problems Gastroparesis (Acute) 1. Gastroparesis * This is despite having a gastric pacemaker * Patient still with abdominal pain. NG tube was placed and has been suctioning out fluid. * By the patient about minimizing to initiating medications, primarily in the narcotics that she is on. I told her that I am going to scale back her narcotics as I feel that they could be prolonging her gastroparesis episode. Understandably, the patient has pain and I am not can discontinue the narcotics and Ambien cut the dose and cut the frequency. 2. Seizure disorder * Torrey switched to IV while she is n.p.o. 3. Gastroesophageal reflux disease * Patient states that the Prilosec that she takes at home is insufficient. * Patient still with reflux symptoms now and on Pepcid. Switch over to IV Protonix for now. * Upon discharge I would recommend Protonix 40 mg twice daily additionally, I recommend patient be * Sitting upright as much as possible rather than supine as that may help with some of her reflux symptoms. 4. DVT prophylaxis with SCDs. Greater than 35 minutes of which greater than 50% of time was counseling the patient on her gastroparesis and potentiating medications as well as discussing about her reflux symptoms and changing her medications from Prilosec to Protonix. Code Visit Inpatient E&M: 58536 [facility] Hosp L3
--- NOTE | 2017-10-07 13:21 | CASEMGMT ---
RN NICOLAS Face to Face with patient for initial transition planning/care coordination assessment. RN CM introduced self and role at [facility]. Patient lyingin bed, alert and oriented. Patient willing to participate in assessment and is able to answer all questions appropriately. Care providers, pharmacy, and demographics verified. See link attached. Patient wishes to discharge home, denies need for home health or additional DME at this time. Patient states she has no further needs or concerns at this time. CM to follow for discharge planning needs that may arise. Disposition Plan: Patient to discharge home with family support and follow-up plans in place.
[2017-10-07] MEDS: Metoclopramide 10 MG/2 ML Vial 5 MG IV ×3 (13:36→23:43)
[2017-10-07] MEDS: HYDROmorphone HCL 0.5 MG/0.5 ML SYRINGE IV ×2 (14:39→23:45)
[2017-10-08 05:52] LABS: Absolute Lymphocyte Count 3.24 X10^3/ul (0.83-4.51); Absolute Neutrophil Count 6.9 X10^3/uL (2.0-7.7); Basophil# 0.07 X10^3/uL; Basophil% 0.6 % (0-1); Eosinophil# 0.08 X10^3/uL; Eosinophils% 0.7 % (0-5); Hematocrit 46.1 % (37-47); Hemoglobin 15.2 g/dl (12.0-15.0); Lymphocyte # 3.24 X10^3/ul (4.0); Lymphocyte % 29.1 % (19-41); Mean Corpuscular Hgb 31.7 pg (27.0-32.0); Mean Corpuscular Volume 96.2 fL (81-99); Mean Platelet Vol. 10.1 fl (6.2-12.0); Monocyte# 0.86 X10^3/uL; Monocyte% 7.7 % (0-10); Neutrophil # 6.86 X10^3/uL (2.7-7.7); Neutrophil % 61.7 % (47-70); Platelet Count 272 K/mm3 (150-450); RBC Distribution Width CV 12.3 % (11.6-14.6); RBC Distribution Width SD 42.5 fl (35.1-43.9); Red Blood Count 4.79 M/mm3 (4.2-5.4); White Blood Count 11.1 K/mm3 (4.4-11.0)
[2017-10-08 06:00] VITALS: BP 127/70; PULSE 78; RESP 16; TEMP 36.8; O2SAT 97
[2017-10-08 06:07] LABS: POSITIVE COUNT NO; POSITIVE DIFFERENTIAL NO; POSITIVE MORPHOLOGY NO
[2017-10-08 06:22] LABS: Anion Gap 8 (5-15); BUN 6 mg/dL (7-18); BUN/Creat Ratio 8.4 RATIO (10-20); Calcium,Total 8.6 mg/dL (8.5-10.1); Chloride 106 mmol/L (98-107); Creatinine, Serum 0.72 mg/dL (0.55-1.02); EST Glomerular Filtration Rate 92 mL/min (>60); Est Glom Filt Rate - Afr Amer 111 mL/min (>60); Estimated Creatinine Clearance 96.39 ml/min; Glucose 90 mg/dL (74-106); Potassium 3.9 mmol/L (3.5-5.1); Sodium Level 140 mmol/L (136-145)
[2017-10-08] MEDS: Metoclopramide 10 MG/2 ML Vial 5 MG IV ×3 (07:25→17:59)
[2017-10-08] MEDS: Lactated Ringers 1,000 ML 100 ML IV ×2 (09:14→17:59)
[2017-10-08 09:25] VITALS: BP 113/79; PULSE 96; RESP 18; TEMP 36.7; O2SAT 93
[2017-10-08] MEDS: HYDROmorphone HCL 0.5 MG/0.5 ML SYRINGE IV ×2 (09:25→15:17)
--- NOTE | 2017-10-08 10:21 | PCM.PN.HOSP ---
Patient Problems: Active and Suspected Problems Gastroparesis (Acute) Subjective: Doing better but still complains of pain in her left lower quadrant. Some flatness. Vitals/I&O's: Vital Signs Temp Pulse Resp BP Pulse Ox 36.8 C 78 16 127/70 H 97 10/08/17 06:00 10/08/17 06:00 10/08/17 06:00 10/08/17 06:00 10/08/17 06:00 Oxygen Delivery Method Room Air Weight: 89.6 kg Body Mass Index (BMI) 30.0 Intake and Output for Last 24 Hours 10/06/17 10/07/17 10/08/17 23:59 23:59 23:59 Intake Total 826 / 826 1679 / 1679 Output Total 1575 / 1575 1600 / 1600 Balance -749 / -749 79 / 79 General: Alert, Cooperative HEENT: Atraumatic, Normocephalic Neck: No Nodes, Thyroid Normal Size and Texture Lungs: Clear to auscultation, Normal air movement, No rhonchi, No wheeze Cardiovascular: Regular rate, Regular Rhythm, Normal S1, Normal S2 Abdomen: Soft, Non-Distended, Hypoactive Bowel Sounds, Tender - Left lower quadrant Extremities: No edema, No Calf Tenderness Skin: No rashes, No breakdown Psych/Mental Status: Normal Affect, Appropriate Laboratory Results 10/08/17 05:20: Sodium 140, Potassium 3.9, Chloride 106, Carbon Dioxide 26.0, Anion Gap 8, BUN 6 L, Creatinine 0.72, Estim Creat Clear Calc 96.39, Est GFR (MDRD) Af Amer 111, Est GFR (MDRD) Non-Af 92, BUN/Creatinine Ratio 8.4 L, Glucose 90, Calcium 8.6 10/08/17 05:20: WBC 11.1 H, RBC 4.79, Hgb 15.2 H, Hct 46.1, MCV 96.2, MCH 31.7, MCHC 33.0, RDW 12.3, RDW Differential 42.5, Plt Count 272, MPV 10.1, Immature Gran % (Auto) 0.200, Neut % (Auto) 61.7, Lymph % (Auto) 29.1, [place] % (Auto) 7.7, Eos % (Auto) 0.7, Baso % (Auto) 0.6, Absolute Neuts (auto) 6.9, Absolute Lymphs (auto) 3.24, Total Counted Not Reportable Current Medications Albuterol Sulfate (Ventolin Aerosols) 2.5 mg INHALATION Q4H PRN PRN PRN Reason: Shortness of breath, wheezing Hydromorphone HCl (Hydromorphone Hcl) 0.5 mg IV Q6H PRN PRN Reason: SEVERE PAIN (6-10/10) Last Admin: 10/08/17 09:25 Dose: 0.5 mg Lactated Ringer's () 1,000 mls @ 100 mls/hr IV .Q10H ADAM Last Admin: 10/08/17 09:14 Dose: 100 mls/hr Levetiracetam (Keppra) 1,000 mg in 100 mls @ 400 mls/hr IV Q12 [facility] Last Admin: 10/07/17 22:31 Dose: 400 mls/hr Pantoprazole Sodium 40 mg/ (Sodium Chloride) 110 mls @ 330 mls/hr IV Q12 ADAM Last Admin: 10/08/17 09:25 Dose: 330 mls/hr Metoclopramide HCl (Reglan) 5 mg IV Q6 ADAM Last Admin: 10/08/17 07:25 Dose: 5 mg Ondansetron HCl (Zofran) 4 mg IV Q6H PRN PRN PRN Reason: NAUSEA/VOMITING Last Admin: 10/07/17 07:30 Dose: 4 mg Oxycodone HCl (Oxycontin) 20 mg PO BID PRN PRN Reason: PAIN Sodium Chloride () 5 - 30 ml IV UD PRN PRN Reason: SALINE FLUSH Assessment/Plan Active and Suspected Problems Gastroparesis (Acute) 1. Gastroparesis This is despite having a gastric pacemaker Improved today Discussed with patient about minimizing to initiating medications, primarily in the narcotics that she is on. I told her that I am going to scale back her narcotics as I feel that they could be prolonging her gastroparesis episode. Understandably, the patient has pain and I am not can discontinue the narcotics and cut the dose and cut the frequency. Clamp the NG and monitor if no active vomiting then we can remove the NG tube and advance her diet. 2. Seizure disorder Keppra switched to IV while she is n.p.o. 3. Gastroesophageal reflux disease Patient states that the Prilosec that she takes at home is insufficient. Patient still with reflux symptoms now and on Pepcid. Switch over to IV Protonix for now. Upon discharge I would recommend Protonix 40 mg twice daily additionally, I recommend patient be Sitting upright as much as possible rather than supine as that may help with some of her reflux symptoms. 4. DVT prophylaxis with SCDs. Code Visit Inpatient E&M: 76968 Subs Hosp L2
--- NOTE | 2017-10-08 10:24 | PN_ITS ---
Patient Problems: Active and Suspected Problems Gastroparesis (Acute) Subjective: Doing better but still complains of pain in her left lower quadrant. Some flatness. Vitals/I&O's: Vital Signs Temp Pulse Resp BP Pulse Ox 36.8 C 78 16 127/70 H 97 10/08/17 06:00 10/08/17 06:00 10/08/17 06:00 10/08/17 06:00 10/08/17 06:00 Oxygen Delivery Method Room Air Weight: 89.6 kg Body Mass Index (BMI) 30.0 Intake and Output for Last 24 Hours 10/06/17 10/07/17 10/08/17 23:59 23:59 23:59 Intake Total 826 / 826 1679 / 1679 Output Total 1575 / 1575 1600 / 1600 Balance -749 / -749 79 / 79 General: Alert, Cooperative HEENT: Atraumatic, Normocephalic Neck: No Nodes, Thyroid Normal Size and Texture Lungs: Clear to auscultation, Normal air movement, No rhonchi, No wheeze Cardiovascular: Regular rate, Regular Rhythm, Normal S1, Normal S2 Abdomen: Soft, Non-Distended, Hypoactive Bowel Sounds, Tender - Left lower quadrant Extremities: No edema, No Calf Tenderness Skin: No rashes, No breakdown Psych/Mental Status: Normal Affect, Appropriate Laboratory Results 10/08/17 05:20: Sodium 140, Potassium 3.9, Chloride 106, Carbon Dioxide 26.0, Anion Gap 8, BUN 6 L, Creatinine 0.72, Estim Creat Clear Calc 96.39, Est GFR ( MDRD) Af Amer 111, Est GFR (MDRD) Non-Af 92, BUN/Creatinine Ratio 8.4 L, Glucose 90, Calcium 8.6 10/08/17 05:20: WBC 11.1 H, RBC 4.79, Hgb 15.2 H, Hct 46.1, MCV 96.2, MCH 31.7, MCHC 33.0, RDW 12.3, RDW Differential 42.5, Plt Count 272, MPV 10.1, Immature Gran % (Auto) 0.200, Neut % (Auto) 61.7, Lymph % (Auto) 29.1, Holmes % (Auto) 7.7 , Eos % (Auto) 0.7, Baso % (Auto) 0.6, Absolute Neuts (auto) 6.9, Absolute Lymphs (auto) 3.24, Total Counted Not Reportable Current Medications Albuterol Sulfate (Ventolin Aerosols) 2.5 mg INHALATION Q4H PRN PRN PRN Reason: Shortness of breath, wheezing Hydromorphone HCl (Hydromorphone Hcl) 0.5 mg IV Q6H PRN PRN Reason: SEVERE PAIN (6-10/10) Last Admin: 10/08/17 09:25 Dose: 0.5 mg Lactated Ringer's () 1,000 mls @ 100 mls/hr IV .Q10H ADAM Last Admin: 10/08/17 09:14 Dose: 100 mls/hr Levetiracetam (Keppra) 1,000 mg in 100 mls @ 400 mls/hr IV Q12 [facility] Last Admin: 10/07/17 22:31 Dose: 400 mls/hr Pantoprazole Sodium 40 mg/ (Sodium Chloride) 110 mls @ 330 mls/hr IV Q12 ADAM Last Admin: 10/08/17 09:25 Dose: 330 mls/hr Metoclopramide HCl (Reglan) 5 mg IV Q6 ADAM Last Admin: 10/08/17 07:25 Dose: 5 mg Ondansetron HCl (Zofran) 4 mg IV Q6H PRN PRN PRN Reason: NAUSEA/VOMITING Last Admin: 10/07/17 07:30 Dose: 4 mg Oxycodone HCl (Oxycontin) 20 mg PO BID PRN PRN Reason: PAIN Sodium Chloride () 5 - 30 ml IV UD PRN PRN Reason: SALINE FLUSH Assessment/Plan Active and Suspected Problems Gastroparesis (Acute) 1. Gastroparesis * This is despite having a gastric pacemaker * Improved today * Discussed with patient about minimizing to initiating medications, primarily in the narcotics that she is on. I told her that I am going to scale back her narcotics as I feel that they could be prolonging her gastroparesis episode. Understandably, the patient has pain and I am not can discontinue the narcotics and cut the dose and cut the frequency. * Clamp the NG and monitor if no active vomiting then we can remove the NG tube and advance her diet. 2. Seizure disorder * Keppra switched to IV while she is n.p.o. 3. Gastroesophageal reflux disease * Patient states that the Prilosec that she takes at home is insufficient. * Patient still with reflux symptoms now and on Pepcid. Switch over to IV Protonix for now. * Upon discharge I would recommend Protonix 40 mg twice daily additionally, I recommend patient be * Sitting upright as much as possible rather than supine as that may help with some of her reflux symptoms. 4. DVT prophylaxis with SCDs. Code Visit Inpatient E&M: 98538 Subs Hosp L2
[2017-10-08 14:30] VITALS: BP 118/83; PULSE 106; RESP 18; TEMP 36.8; O2SAT 97
--- NOTE | 2017-10-08 15:58 | CHAPLAIN ---
Type of Pastoral Visit _x__ Initial Visit ___ Follow-up Visit ___ On-call Visit ___ General Patient Visit ___ Spiritual Assessment ___ Family Conference ___ Bereavement ___ Rapid Response ___ Code Blue ___ Other (describe below) Pastoral Care Referral From _x__ Patient ___ Family ___ Nurse ___ Physician ___ International Marketing Coordinator ___ Broaching Machine Operator ___ Other (describe below) Sacrament/Intervention _x__ Active listening ___ Anointing ___ Religion ___ Bereavement ___ Communion ___ Miriam exploration ___ _x__ Life review _x__ Prayer ___ Reconciliation ___ Sacrament of Sick ___ Supportive presence ___ Wedding ___ Other (describe below) Pastoral Comments
[2017-10-08 20:30] VITALS: BP 123/87; PULSE 80; RESP 16; TEMP 36.6; O2SAT 98
[2017-10-08] MEDS: HYDROmorphone 1 MG/ML Syringe 0.5 MG IV (20:46)
[2017-10-09] MEDS: Metoclopramide 10 MG/2 ML Vial 5 MG IV ×2 (00:16→06:07)
[2017-10-09 02:00] VITALS: RESP 16
[2017-10-09] MEDS: HYDROmorphone 1 MG/ML Syringe 0.5 MG IV ×3 (02:18→13:47)
[2017-10-09 02:30] VITALS: BP 101/60; PULSE 81; RESP 16; TEMP 36.6; O2SAT 97
[2017-10-09 08:28] VITALS: BP 110/76; PULSE 101; RESP 18; TEMP 36.4; O2SAT 95
--- NOTE | 2017-10-09 10:09 | CT_ITS ---
STUDY: CT ABDOMEN AND PELVIS WITH CONTRAST REASON FOR EXAM: Female, 47 years old. Left lower quadrant pain. RADIATION DOSAGE (If Supplied By Facility): CTDIvol = ( 19.70 ) mGy, DLP = ( 1545.29 ) mGycm TECHNIQUE: Transaxial images were obtained from the dome of the diaphragm to the symphysis pubis without oral contrast. 80ML ml of Isovue 300 contrast was administered. Sagittal and coronal images were reconstructed. Individualized dose optimization techniques were used for this CT. COMPARISON: Comparison is made with prior examination dated October 06, 2017. FINDINGS: Mild degree of dependent bibasilar atelectasis. The visualized portions of the heart are within normal limits. There is decreased attenuation of the liver consistent with steatosis. There are surgical clips in the gallbladder fossa consistent with a prior cholecystectomy. Normal spleen. Normal pancreas. Normal bilateral adrenal glands. Normal right kidney. Normal left kidney. Normal visualized stomach. Normal small intestine. There are scattered colonic diverticula consistent with diverticulosis. There is non-visualization of the appendix. Normal abdominal aorta. Normal inferior vena cava. Normal retroperitoneum. Normal urinary bladder. A pacemaker battery pack is seen in the subcutaneous tissues in the left mid abdomen. The electrodes appear to end along the lesser curvature of the stomach suggestive of a gastric pacemaker. Prior laminectomy and fusion in the lower lumbar spine. CT/Abdomen/Pelvis W IV Cont ONLY IMPRESSION: No acute abnormality is seen. Electronically Signed: Luiz Neff MD at 11:41 EST Tel [phone], Service support ,
--- NOTE | 2017-10-09 10:11 | PCM.PN.HOSP ---
Patient Problems: Active and Suspected Problems Gastroparesis (Acute) Subjective: Tolerating diet. No further nausea and vomiting. Patient complains of left lower quadrant abdominal pain. Patient is concerned about her her gastric pacemaker migrating from her epigastrium to her left lower quadrants and. Patient states that it causes friction on her pelvis when she walks. Vitals/I&O's: Vital Signs Temp Pulse Resp BP Pulse Ox 36.4 C L 101 H 18 110/76 95 10/09/17 08:28 10/09/17 08:28 10/09/17 08:28 10/09/17 08:28 10/09/17 08:28 Oxygen Delivery Method Room Air Weight: 89.6 kg Body Mass Index (BMI) 30.0 Intake and Output for Last 24 Hours 10/07/17 10/08/17 10/09/17 23:59 23:59 23:59 Intake Total 826 / 826 3647 / 3647 1681 / 1681 Output Total 1575 / 1575 4575 / 4575 600 / 600 Balance -749 / -749 -928 / -928 1081 / 1081 General: Alert, Cooperative, No apparent distress HEENT: Atraumatic, Normocephalic Neck: No Nodes, Thyroid Normal Size and Texture Lungs: Clear to auscultation, Normal air movement, No rhonchi, No wheeze Cardiovascular: Regular rate, Regular Rhythm, Normal S1, Normal S2 Abdomen: Bowel Sounds Present, Soft, Non-Distended, - - Very exquisite left lower quadrant abdominal tenderness. Just with the light grazing of the skin causes exquisite pain. No evidence of any fluctuance nor induration. Extremities: No edema, No Calf Tenderness Skin: No rashes, No breakdown Psych/Mental Status: Normal Affect, Appropriate Current Medications Albuterol Sulfate (Ventolin Aerosols) 2.5 mg INHALATION Q4H PRN PRN PRN Reason: Shortness of breath, wheezing Hydromorphone HCl (Dilaudid) 0.5 mg IV Q4H PRN PRN PRN Reason: SEVERE PAIN (6-10/10) Last Admin: 10/09/17 08:37 Dose: 0.5 mg Lactated Ringer's () 1,000 mls @ 100 mls/hr IV .Q10H ADAM Last Admin: 10/08/17 17:59 Dose: 100 mls/hr Levetiracetam (Keppra) 1,000 mg in 100 mls @ 400 mls/hr IV Q12 ADAM Last Admin: 10/09/17 08:31 Dose: 400 mls/hr Pantoprazole Sodium 40 mg/ (Sodium Chloride) 110 mls @ 330 mls/hr IV Q12 ADAM Last Admin: 10/09/17 08:49 Dose: 330 mls/hr Metoclopramide HCl (Reglan) 5 mg IV Q6 ADAM Last Admin: 10/09/17 06:07 Dose: 5 mg Ondansetron HCl (Zofran) 4 mg IV Q6H PRN PRN PRN Reason: NAUSEA/VOMITING Last Admin: 10/07/17 07:30 Dose: 4 mg Oxycodone HCl (Oxycontin) 20 mg PO BID PRN PRN Reason: PAIN Last Admin: 10/08/17 18:02 Dose: 20 mg Sodium Chloride () 5 - 30 ml IV UD PRN PRN Reason: SALINE FLUSH Assessment/Plan Active and Suspected Problems Gastroparesis (Acute) 1. Gastroparesis This is despite having a gastric pacemaker Improved today Discussed with patient about minimizing to initiating medications, primarily in the narcotics that she is on. I told her that I am going to scale back her narcotics as I feel that they could be prolonging her gastroparesis episode. Understandably, the patient has pain and I am not can discontinue the narcotics and cut the dose and cut the frequency. Running diet, will advance to low residue and monitor. 2. Seizure disorder Resume oral Keppra. 3. Gastroesophageal reflux disease Patient states that the Prilosec that she takes at home is insufficient. Patient still with reflux symptoms now and on Pepcid. Switch over to IV Protonix for now. Upon discharge I would recommend Protonix 40 mg twice daily additionally, I recommend patient be Sitting upright as much as possible rather than supine as that may help with some of her reflux symptoms. 4. Left lower quadrant abdominal pain Previous CAT scan CAT scan did not show any abscess. Will repeat CT scan to see if there is been any change with that. Patient is concerned about her pacemaker migrating down her abdomen. I reviewed the patient's prior images dating back as far as 2015 and appears to be in the same position as it has been. 5. DVT prophylaxis with SCDs. Code Visit Inpatient E&M: 73334 Subs Hosp L2
--- NOTE | 2017-10-09 10:15 | PN_ITS ---
Patient Problems: Active and Suspected Problems Gastroparesis (Acute) Subjective: Tolerating diet. No further nausea and vomiting. Patient complains of left lower quadrant abdominal pain. Patient is concerned about her her gastric pacemaker migrating from her epigastrium to her left lower quadrants and. Patient states that it causes friction on her pelvis when she walks. Vitals/I&O's: Vital Signs Temp Pulse Resp BP Pulse Ox 36.4 C L 101 H 18 110/76 95 10/09/17 08:28 10/09/17 08:28 10/09/17 08:28 10/09/17 08:28 10/09/17 08:28 Oxygen Delivery Method Room Air Weight: 89.6 kg Body Mass Index (BMI) 30.0 Intake and Output for Last 24 Hours 10/07/17 10/08/17 10/09/17 23:59 23:59 23:59 Intake Total 826 / 826 3647 / 3647 1681 / 1681 Output Total 1575 / 1575 4575 / 4575 600 / 600 Balance -749 / -749 -928 / -928 1081 / 1081 General: Alert, Cooperative, No apparent distress HEENT: Atraumatic, Normocephalic Neck: No Nodes, Thyroid Normal Size and Texture Lungs: Clear to auscultation, Normal air movement, No rhonchi, No wheeze Cardiovascular: Regular rate, Regular Rhythm, Normal S1, Normal S2 Abdomen: Bowel Sounds Present, Soft, Non-Distended, - - Very exquisite left lower quadrant abdominal tenderness. Just with the light grazing of the skin causes exquisite pain. No evidence of any fluctuance nor induration. Extremities: No edema, No Calf Tenderness Skin: No rashes, No breakdown Psych/Mental Status: Normal Affect, Appropriate Current Medications Albuterol Sulfate (Ventolin Aerosols) 2.5 mg INHALATION Q4H PRN PRN PRN Reason: Shortness of breath, wheezing Hydromorphone HCl (Dilaudid) 0.5 mg IV Q4H PRN PRN PRN Reason: SEVERE PAIN (6-10/10) Last Admin: 10/09/17 08:37 Dose: 0.5 mg Lactated Ringer's () 1,000 mls @ 100 mls/hr IV .Q10H ADAM Last Admin: 10/08/17 17:59 Dose: 100 mls/hr Levetiracetam (Keppra) 1,000 mg in 100 mls @ 400 mls/hr IV Q12 ADAM Last Admin: 10/09/17 08:31 Dose: 400 mls/hr Pantoprazole Sodium 40 mg/ (Sodium Chloride) 110 mls @ 330 mls/hr IV Q12 ADAM Last Admin: 10/09/17 08:49 Dose: 330 mls/hr Metoclopramide HCl (Reglan) 5 mg IV Q6 ADAM Last Admin: 10/09/17 06:07 Dose: 5 mg Ondansetron HCl (Zofran) 4 mg IV Q6H PRN PRN PRN Reason: NAUSEA/VOMITING Last Admin: 10/07/17 07:30 Dose: 4 mg Oxycodone HCl (Oxycontin) 20 mg PO BID PRN PRN Reason: PAIN Last Admin: 10/08/17 18:02 Dose: 20 mg Sodium Chloride () 5 - 30 ml IV UD PRN PRN Reason: SALINE FLUSH Assessment/Plan Active and Suspected Problems Gastroparesis (Acute) 1. Gastroparesis * This is despite having a gastric pacemaker * Improved today * Discussed with patient about minimizing to initiating medications, primarily in the narcotics that she is on. I told her that I am going to scale back her narcotics as I feel that they could be prolonging her gastroparesis episode. Understandably, the patient has pain and I am not can discontinue the narcotics and cut the dose and cut the frequency. * Running diet, will advance to low residue and monitor. 2. Seizure disorder * Resume oral Keppra. 3. Gastroesophageal reflux disease * Patient states that the Prilosec that she takes at home is insufficient. * Patient still with reflux symptoms now and on Pepcid. Switch over to IV Protonix for now. * Upon discharge I would recommend Protonix 40 mg twice daily additionally, I recommend patient be * Sitting upright as much as possible rather than supine as that may help with some of her reflux symptoms. 4. Left lower quadrant abdominal pain * Previous CAT scan CAT scan did not show any abscess. Will repeat CT scan to see if there is been any change with that. * Patient is concerned about her pacemaker migrating down her abdomen. I reviewed the patient's prior images dating back as far as 2015 and appears to be in the same position as it has been. 5. DVT prophylaxis with SCDs. Code Visit Inpatient E&M: 85317 Subs Hosp L2
[2017-10-09] MEDS: Ondansetron 4 MG/2 ML Vial IV (10:51)
[2017-10-09 13:20] VITALS: PULSE 95; RESP 18
[2017-10-09] MEDS: Albuterol 2.5 MG/3 ML VIAL.NEB. INHALATION (13:20)
[2017-10-09 14:25] VITALS: BP 146/62; PULSE 94; RESP 18; TEMP 36.4; O2SAT 99
--- NOTE | 2017-10-09 15:55 | DCINST_ITS ---
- Discharge Diagnoses Current Active Problems: Current Active and Chronic Problems Gastroparesis (Acute) You will use the following diet at home:: No restrictions - bland, advance as tolerated. Do not overeat. Your food should be the consistency of: Regular Your liquids should be the consistency of: Regular/Thin Discharge Activity: Return to Normal Activity Call your doctor if you observe: Fever of 101 or Higher, Shortness of breath, - - worsening abdominal pain. Intractable nausea vomiting. Allergies/Adverse Reactions: Allergies Penicillins Allergy (Verified 10/06/17 21:03) Anaphylaxis propoxyphene napsylate [From Darvocet-N 100] Allergy (Verified 10/06/17 21:03) Rash hydrocodone bitartrate [From Vicodin] Adverse Reaction (Verified 10/06/17 21:03) Itching latex Adverse Reaction (Verified 10/06/17 21:03) blistering of skin venom-honey bee [bee venom (honey bee)] Adverse Reaction (Verified 10/06/17 21: 03) Chest tightness PLASTIC TAPE Allergy (Uncoded 10/07/17 03:40) blistering IV contrast Adverse Reaction (Uncoded 10/06/17 21:03) Vomiting Medications to take at Discharge Oxycodone HCl [Oxycodone HCl ER] 20 mg PO BID PRN 07/22/16 Albuterol Sulfate [Ventolin Hfa] 2 puff IH Q6H PRN PRN 09/30/16 Fluticasone 0.05% [Flonase Nasal [place]] 2 spray NASAL BID 09/30/16 Aspirin [Aspirin, Baby] 81 mg PO DAILY@0800 tab.chew 12/31/16 Fluticasone/Salmeterol [Advair 250-50 Diskus] 1 each IH PRN PRN 12/31/16 Levetiracetam [Keppra] 1,000 mg PO Q12H 09/06/17 Amitriptyline HCl [Elavil] 20 mg PO QHS 10/07/17 Ondansetron [Zofran] 8 mg PO Q8H PRN PRN #20 tab 10/09/17 Pantoprazole Sodium [Protonix] 40 mg PO BID #60 tab 10/09/17 The following prescriptions were given: Ondansetron [Zofran] 8 mg PO Q8H PRN PRN #20 tab PRN Reason: nausea vomiting Pantoprazole Sodium [Protonix] 40 mg PO BID #60 tab Primary Care Physician: Amandeep Loredo [Primary Care Provider] - Within 2 Weeks Please Follow Up With: Theron Taylor - gastric pacemaker check When: 2-4 weeks Proposed Discharge Date: 10/09/17
--- NOTE | 2017-10-09 15:55 | PCM.DC.SUM ---
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 Electronically Signed: José Antonio Ross MD at 23:02 EST , Service support , KUB X-Ray 10/07/17 00:53 IMPRESSION: Nonobstructive bowel gas pattern Electronically Signed: Keegan Knowles MD at 2:01 EST Tel , Service support , KUB X-Ray 10/07/17 05:55 IMPRESSION: The tip of the oral gastric tube is in the distal portion of the stomach. The gas pattern is unremarkable. Electronically Signed: Luiz Neff MD at 8:41 EST Tel [phone], Service support , Abdomen/Pelvis CT 10/09/17 10:09 IMPRESSION: No acute abnormality is seen. Electronically Signed: Luiz Neff MD at 11:41 EST Tel [phone], Service support , Operations: None, - Procedures: None Summary of Care Provided: The patient is a 47 year old F with intractable nausea and vomiting. Patient had initial CAT scan that showed no acute process but the patient was actively vomiting so patient did have a nasogastric tube placed in the emergency room. Patient did have a copious amount of fluid removed with. He had the patient does have known history of gastroparesis that has been deemed idiopathic as patient is not a diabetic. Patient has a gastric pacemaker as well. Patient has been concerned that her gastric pacemaker is malfunctioned. Patient was told that her battery will need to be changed soon but she is not been told that the batteries been as of yet. So patient's nasogastric tube was removed yesterday patient was advanced to clear diet, to which she tolerated. And today patient was advanced to more regular diet which she again is also tolerating. I did talk to patient about narcotics and how they can potentiate gastroparesis and to use narcotics sparingly. Patient does complain of pain in her left lower quadrant. The pain seems to be well out of proportion to her exam. Patient is concerned that her gastric pacemaker has migrated down from her epigastrium to her left lower quadrant. I reviewed the patient's prior scans dating back to 2016 and told her that it appears to be in the same physician and has been since that time. So I did repeat another CAT scan that showed no abscess or any other sign of it being compromised. And clinically, despite the patient's pain, there is no induration and no fluctuance and the like. Patient is instructed to follow-up with Dr. Taylor, who put her gastric pacemaker and, and to see if anything additional needs to be done without aware if he can be interrogated. [] Discharge Diet: No Restrictions Discharge Activity: Return to Normal Activity Call your doctor if you observe: Fever of 101 or Higher, Shortness of breath, - - worsening abdominal pain. Intractable nausea vomiting. Home Medications: Medications to take at Discharge Oxycodone HCl [Oxycodone HCl ER] 20 mg PO BID PRN 07/22/16 Albuterol Sulfate [Ventolin Hfa] 2 puff IH Q6H PRN PRN 09/30/16 Fluticasone 0.05% [Flonase Nasal [place]] 2 spray NASAL BID 09/30/16 Aspirin [Aspirin, Baby] 81 mg PO DAILY@0800 tab.chew 12/31/16 Fluticasone/Salmeterol [Advair 250-50 Diskus] 1 each IH PRN PRN 12/31/16 Levetiracetam [Keppra] 1,000 mg PO Q12H 09/06/17 Amitriptyline HCl [Elavil] 20 mg PO QHS 10/07/17 Ondansetron [Zofran] 8 mg PO Q8H PRN PRN #20 tab 10/09/17 Pantoprazole Sodium [Protonix] 40 mg PO BID #60 tab 10/09/17 Following Prescrptions Were Given to Patient: Ondansetron [Zofran] 8 mg PO Q8H PRN PRN #20 tab PRN Reason: nausea vomiting Pantoprazole Sodium [Protonix] 40 mg PO BID #60 tab Primary Care Physician: Amandeep Loredo [Primary Care Provider] - Within 2 Weeks Please Follow Up With: Theron Taylor - gastric pacemaker check When: 2-4 weeks Disposition: Home Minutes spent on discharge:: 32 Patient Condition:: Good Meaningful Use Info Meaningful Use Diagnoses (Choose all that apply): None applicable Code Visit Inpatient E&M: 57264 Disch Hosp
--- NOTE | 2017-10-09 16:00 | DS.PCM_ITS ---
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 Electronically Signed: José Antonio Ross MD at 23:02 EST , Service support , KUB X-Ray 10/07/17 00:53 IMPRESSION: Nonobstructive bowel gas pattern Electronically Signed: Keegan Knowles MD at 2:01 EST Tel , Service support , KUB X-Ray 10/07/17 05:55 IMPRESSION: The tip of the oral gastric tube is in the distal portion of the stomach. The gas pattern is unremarkable. Electronically Signed: Luiz Neff MD at 8:41 EST Tel [phone], Service support , Abdomen/Pelvis CT 10/09/17 10:09 IMPRESSION: No acute abnormality is seen. Electronically Signed: Luiz Neff MD at 11:41 EST Tel [phone], Service support , Operations: None, - Procedures: None Summary of Care Provided: The patient is a 47 year old F with intractable nausea and vomiting. Patient had initial CAT scan that showed no acute process but the patient was actively vomiting so patient did have a nasogastric tube placed in the emergency room. Patient did have a copious amount of fluid removed with. He had the patient does have known history of gastroparesis that has been deemed idiopathic as patient is not a diabetic. Patient has a gastric pacemaker as well. Patient has been concerned that her gastric pacemaker is malfunctioned. Patient was told that her battery will need to be changed soon but she is not been told that the batteries been as of yet. So patient's nasogastric tube was removed yesterday patient was advanced to clear diet, to which she tolerated. And today patient was advanced to more regular diet which she again is also tolerating. I did talk to patient about narcotics and how they can potentiate gastroparesis and to use narcotics sparingly. Patient does complain of pain in her left lower quadrant. The pain seems to be well out of proportion to her exam. Patient is concerned that her gastric pacemaker has migrated down from her epigastrium to her left lower quadrant. I reviewed the patient's prior scans dating back to 2016 and told her that it appears to be in the same physician and has been since that time. So I did repeat another CAT scan that showed no abscess or any other sign of it being compromised. And clinically, despite the patient's pain, there is no induration and no fluctuance and the like. Patient is instructed to follow-up with Dr. Taylor, who put her gastric pacemaker and, and to see if anything additional needs to be done without aware if he can be interrogated. [] Discharge Diet: No Restrictions Discharge Activity: Return to Normal Activity Call your doctor if you observe: Fever of 101 or Higher, Shortness of breath, - - worsening abdominal pain. Intractable nausea vomiting. Home Medications: Medications to take at Discharge Oxycodone HCl [Oxycodone HCl ER] 20 mg PO BID PRN 07/22/16 Albuterol Sulfate [Ventolin Hfa] 2 puff IH Q6H PRN PRN 09/30/16 Fluticasone 0.05% [Flonase Nasal [place]] 2 spray NASAL BID 09/30/16 Aspirin [Aspirin, Baby] 81 mg PO DAILY@0800 tab.chew 12/31/16 Fluticasone/Salmeterol [Advair 250-50 Diskus] 1 each IH PRN PRN 12/31/16 Levetiracetam [Keppra] 1,000 mg PO Q12H 09/06/17 Amitriptyline HCl [Elavil] 20 mg PO QHS 10/07/17 Ondansetron [Zofran] 8 mg PO Q8H PRN PRN #20 tab 10/09/17 Pantoprazole Sodium [Protonix] 40 mg PO BID #60 tab 10/09/17 Following Prescrptions Were Given to Patient: Ondansetron [Zofran] 8 mg PO Q8H PRN PRN #20 tab PRN Reason: nausea vomiting Pantoprazole Sodium [Protonix] 40 mg PO BID #60 tab Primary Care Physician: Amandeep Loredo [Primary Care Provider] - Within 2 Weeks Please Follow Up With: Theron Taylor - gastric pacemaker check When: 2-4 weeks Disposition: Home Minutes spent on discharge:: 32 Patient Condition:: Good Meaningful Use Info Meaningful Use Diagnoses (Choose all that apply): None applicable Code Visit Inpatient E&M: 83151 Disch Hosp
[2017-10-09 16:26] VITALS: BP 118/70; PULSE 101; RESP 18; TEMP 36.9; O2SAT 93
== END 2017-10-09 16:33 | disposition home or self-care (01) | DRG 392 ==
LOC: ED 21:46 → MS3 10-07 02:48
PROVIDERS: Admitting Provider Hospitalist; Emergency Provider Emergency Medicine; Family Provider Family Medicine; PCP Family Medicine; Visit Provider Hospitalist
DX: K31.84 Gastroparesis (principal); E86.0 Dehydration; Z87.891 Personal history of nicotine dependence; N20.0 Calculus of kidney; G40.909 Epilepsy, unspecified, not intractable, without status epilepticus; Z86.73 Personal history of transient ischemic attack (TIA), and cerebral infarction without residual deficits; Z79.82 Long term (current) use of aspirin; K21.9 Gastro-esophageal reflux disease without esophagitis; F43.10 Post-traumatic stress disorder, unspecified; Z98.1 Arthrodesis status; Z96.89 Presence of other specified functional implants
CPT/HCPCS: 36415; 74018; 74176; 74177; 80048; 80076; 83690; 85025; 94640; 97802; 99285; 99406; J7030; J7120; Q9967; A4216; J2405; J3490

== ENCOUNTER 2017-11-09 15:36 | Emergency (ER) | payer MEDICARE, SELFPAY ==
[2017-11-09 15:38] VITALS: BP 134/75; PULSE 91; RESP 16; TEMP 37.1; O2SAT 96; BMI 31.4
--- NOTE | 2017-11-09 16:58 | RAD_ITS ---
STUDY: X-RAY - ACUTE ABDOMINAL SERIES REASON FOR EXAM: Female, 47 years old. Abdominal distention, constipation. History of gastroparesis. TECHNIQUE: Single view of the chest. Supine, and erect view(s) of the abdomen were obtained. COMPARISON: None. FINDINGS: The lungs are clear and expanded. Normal size heart. Normal mediastinum and kimani. Normal visualized pulmonary arteries. Normal visualized aortic arch and descending thoracic aorta. There is a non-specific bowel gas pattern. There is no demonstrated free intraperitoneal air. Surgical clips of prior cholecystectomy project in the right upper quadrant of the abdomen. A few calcified phleboliths project in the pelvic soft tissues. The patient has undergone prior L5 laminectomies as well as lumbosacral fusion with metal hardware. Bilateral transpedicular screws L4-S1 are connected on either side to longitudinal metal rods. A spinal stimulator generator projects over the left flank, its leads extending to the L4-5 region. There is a 4-5 degree levoscoliosis centered at T11-12. Borderline left lateral wedging of the T6 vertebra. Metal sideplate and screws of prior lower anterior cervical fusion also incidentally noted. RAD/Acute Abdomen Inc Chest IMPRESSION: 1. Nonspecific bowel gas pattern. No free gas. 2. Prior cholecystectomy. 3. No acute cardiopulmonary disease. 4. Prior lower anterior cervical spine fusion, as well as previous L5 laminectomies and posterior bilateral L4-S1 fusion with metal hardware. Lower lumbar spinal stimulator is also present. Electronically Signed: Orlando Johnson MD at 18:51 EDT , Service support ,
--- NOTE | 2017-11-09 17:16 | ED.VISSUMM ---
- ER Visit Summary Date of Service: 11/09/17 Chief Complaint: Abdominal pain, distention with nausea and vomiting and no bowel movement for 2-3 days and no flatus History of Present Illness: The patient is a 47 F patient presents because of abdominal pain, nausea vomiting with constipation for 3 days and no flatus for 2 days. She states she was admitted recently for bowel obstruction. Patient's radiologic images which included 3 view abdominal series and CT of the abdomen as well as dictated note were reviewed. There was no small bowel obstruction. She was admitted for nausea vomiting with history of gastroparesis. She states she is scheduled for surgery to remove her gastric stimulator because it has malfunctioned. Patient denies fever, chills night sweats. Patient states she has not had any drink in 2 days. Patient denies any cardiorespiratory symptoms. Patient denies any urologic symptoms. She also complains of rash. Review of systems is otherwise negative. Physical Examination: Blood pressure slightly above 134/75. Vital signs otherwise unremarkable. Head is atraumatic normocephalic. Pupils are equal round reactive. Extraocular muscles are intact. TMs are pearly white with landmarks noted. Nares patent with no drainage. Posterior pharynx without erythema or exudate. Uvula is midline. There is no dysphonia or dysphasia. Trachea is midline. There is no stridor with auscultation of the neck. Heart is regular without murmur, gallop or rub. S1 and S2 are normal. Lungs are clear to auscultation with good movement of air bilaterally. Abdomen is soft and pain is out of proportion to light tactile stimulus. There is no evidence of umbilical hernia. Incisions are well-healed without evidence of infection. She does have macular pustular rash consistent with folliculitis. She denies being in a hot tub in the last 1-2 weeks. She has a depressed affect. She began to cry when she informed me of her history. Test Results: CBC and BMP are unremarkable. Three-view x-ray of the abdomen reveals minimal amount of gas and minimal amount of stool. Emergency Department Course and Treatment: Based on patient's history IV was established was given IV fluids and medicated with Zofran and morphine. Approximately 30-60 minutes ago nurse stated patient would like more pain medicine. I informed the nurse based on her workup and the fact that she has not vomited I would not give her any pain medicine especially since her chief complaint is nausea and vomiting and opiates cause nausea and vomiting. Clinically she did not appear dehydrated bloodwork supports she is not dehydrated; therefore, plan is to discharge her home to follow-up with her surgeon at [facility] Treatment Plan: Appropriate home-going instruction and follow-up with surgeon at [facility]. Disposition: Discharged to home Impression: 1. Abdominal pain with nausea and vomiting 2. Reported constipation 3. History of gastroparesis 4. History of seizure disorder 5. Depressed affect This note was generated with [employer] dictation software. It may contain incorrect words, spelling, and punctuation that were not noted in review of the chart prior to signing ED Disposition - Plan for ED Patient: Disposition: Home or Assisted Living Chief Complaint: Constipation Instructions: ED Constipation, Gastroparesis Referrals: Amandeep Loredo [Primary Care Provider] - As Needed Additional Instructions: Follow-up with your surgeon as scheduled.
--- NOTE | 2017-11-09 17:22 | ED.DCSUM_ITS ---
- ER Visit Summary Date of Service: 11/09/17 Chief Complaint: Abdominal pain, distention with nausea and vomiting and no bowel movement for 2-3 days and no flatus History of Present Illness: The patient is a 47 F patient presents because of abdominal pain, nausea vomiting with constipation for 3 days and no flatus for 2 days. She states she was admitted recently for bowel obstruction. Patient's radiologic images which included 3 view abdominal series and CT of the abdomen as well as dictated note were reviewed. There was no small bowel obstruction. She was admitted for nausea vomiting with history of gastroparesis. She states she is scheduled for surgery to remove her gastric stimulator because it has malfunctioned. Patient denies fever, chills night sweats. Patient states she has not had any drink in 2 days. Patient denies any cardiorespiratory symptoms. Patient denies any urologic symptoms. She also complains of rash. Review of systems is otherwise negative. Physical Examination: Blood pressure slightly above 134/75. Vital signs otherwise unremarkable. Head is atraumatic normocephalic. Pupils are equal round reactive. Extraocular muscles are intact. TMs are pearly white with landmarks noted. Nares patent with no drainage. Posterior pharynx without erythema or exudate. Uvula is midline. There is no dysphonia or dysphasia. Trachea is midline. There is no stridor with auscultation of the neck. Heart is regular without murmur, gallop or rub. S1 and S2 are normal. Lungs are clear to auscultation with good movement of air bilaterally. Abdomen is soft and pain is out of proportion to light tactile stimulus. There is no evidence of umbilical hernia. Incisions are well-healed without evidence of infection. She does have macular pustular rash consistent with folliculitis. She denies being in a hot tub in the last 1-2 weeks. She has a depressed affect. She began to cry when she informed me of her history. Test Results: CBC and BMP are unremarkable. Three-view x-ray of the abdomen reveals minimal amount of gas and minimal amount of stool. Emergency Department Course and Treatment: Based on patient's history IV was established was given IV fluids and medicated with Zofran and morphine. Approximately 30-60 minutes ago nurse stated patient would like more pain medicine. I informed the nurse based on her workup and the fact that she has not vomited I would not give her any pain medicine especially since her chief complaint is nausea and vomiting and opiates cause nausea and vomiting. Clinically she did not appear dehydrated bloodwork supports she is not dehydrated; therefore, plan is to discharge her home to follow-up with her surgeon at [facility] Treatment Plan: Appropriate home-going instruction and follow-up with surgeon at [facility]. Disposition: Discharged to home Impression: 1. Abdominal pain with nausea and vomiting 2. Reported constipation 3. History of gastroparesis 4. History of seizure disorder 5. Depressed affect This note was generated with [employer] dictation software. It may contain incorrect words, spelling, and punctuation that were not noted in review of the chart prior to signing ED Disposition - Plan for ED Patient: Disposition: Home or Assisted Living Chief Complaint: Constipation Instructions: ED Constipation, Gastroparesis Referrals: Amandeep Loredo [Primary Care Provider] - As Needed Additional Instructions: Follow-up with your surgeon as scheduled.
[2017-11-09] MEDS: 0.9% Normal Saline 1,000 ML 1000 ML IV (17:28)
[2017-11-09] MEDS: Ondansetron 4 MG/2 ML Vial IV (17:29)
[2017-11-09 18:00] LABS: Absolute Lymphocyte Count 2.66 X10^3/ul (0.83-4.51); Absolute Neutrophil Count 4.8 X10^3/uL (2.0-7.7); Basophil# 0.04 X10^3/uL; Basophil% 0.5 % (0-1); Eosinophil# 0.09 X10^3/uL; Eosinophils% 1.1 % (0-5); Hematocrit 46.1 % (37-47); Hemoglobin 14.8 g/dl (12.0-15.0); Lymphocyte # 2.66 X10^3/ul (4.0); Lymphocyte % 32.7 % (19-41); Mean Corp Hgb Conc 32.1 g/gl (32-36); Mean Corpuscular Volume 96.4 fL (81-99); Mean Platelet Vol. 10.3 fl (6.2-12.0); Monocyte# 0.55 X10^3/uL; Monocyte% 6.8 % (0-10); Neutrophil # 4.78 X10^3/uL (2.7-7.7); Neutrophil % 58.7 % (47-70); Platelet Count 262 K/mm3 (150-450); RBC Distribution Width CV 12.7 % (11.6-14.6); RBC Distribution Width SD 44.3 fl (35.1-43.9); Red Blood Count 4.78 M/mm3 (4.2-5.4); White Blood Count 8.1 K/mm3 (4.4-11.0)
[2017-11-09 18:03] LABS: Anion Gap 7 (5-15); BUN 8 mg/dL (7-18); BUN/Creat Ratio 12.7 RATIO (10-20); Calcium,Total 8.5 mg/dL (8.5-10.1); Chloride 110 mmol/L (98-107); Creatinine, Serum 0.63 mg/dL (0.55-1.02); EST Glomerular Filtration Rate 107 mL/min (>60); Est Glom Filt Rate - Afr Amer 129 mL/min (>60); Estimated Creatinine Clearance 110.16 ml/min; Glucose 86 mg/dL (74-106); Potassium 3.9 mmol/L (3.5-5.1); Sodium Level 142 mmol/L (136-145)
[2017-11-09 18:14] LABS: POSITIVE COUNT NO; POSITIVE DIFFERENTIAL NO; POSITIVE MORPHOLOGY NO
[2017-11-09 19:43] VITALS: BP 105/81; PULSE 92; RESP 16; O2SAT 96
== END 2017-11-09 19:44 | disposition home or self-care (01) ==
PROVIDERS: Emergency Provider Emergency Medicine; Family Provider Family Medicine; PCP Family Medicine
DX: R10.9 Unspecified abdominal pain (principal); R11.2 Nausea with vomiting, unspecified; K59.00 Constipation, unspecified; G40.909 Epilepsy, unspecified, not intractable, without status epilepticus; F32.9 Major depressive disorder, single episode, unspecified; Z87.19 Personal history of other diseases of the digestive system; Z79.82 Long term (current) use of aspirin; Z79.899 Other long term (current) drug therapy; Z96.89 Presence of other specified functional implants
CPT/HCPCS: 74022; 80048; 85025; 96361; 96374; 96375; 99284; J7030; A4216; J2405

== ENCOUNTER 2018-01-26 21:05 | Emergency (ER) | payer MEDICARE, SELFPAY ==
--- NOTE | 2018-01-26 21:05 | DT_ITS ---
This patient was seen during an EMR downtime January 25, 2018 - February 01, 2018. This patient may have a combination of paper and electronic documentation or all paper documentation. All documentation is viewable within the e-chart portion of [employer] for each patient visit.
--- NOTE | 2018-01-26 22:30 | CT_ITS ---
STUDY: CT LUMBAR SPINE WITH CONTRAST REASON FOR EXAM: Female, 48 years old. BACK AND LEG PAIN/CRAMPING/PREV BACK SURGERY Hx: skin CANCER RADIATION DOSAGE (If Supplied By Facility): CTDIvol = ( 24.50 ) mGy, DLP = ( 730.08 ) mGycm TECHNIQUE: The patient was scanned in a multi detector CT scanner. High resolution transaxial imaging was performed following the intravenous administration of 100ML ml of Isovue 300 contrast material. Images were obtained from to . Sagittal and coronal images were reconstructed. Individualized dose optimization techniques were used for this CT. COMPARISON: None FINDINGS: Normal lumbar lordosis. There is no substantial scoliosis. There are calcifications of the abdominal aorta. This is consistent for atherosclerotic disease. There is no abdominal aortic aneurysm. Normal vertebrae of the lumbar spine. No areas of abnormal enhancement. L1-2: Normal endplates. Normal disc height and morphology. Normal bilateral facet joints. Normal central canal and bilateral lateral recesses. Normal bilateral intervertebral neural foramina. L2-3: Normal endplates. Normal disc height and morphology. Normal bilateral facet joints. Normal central canal and bilateral lateral recesses. Normal bilateral intervertebral neural foramina. L3-4: There is endplate spondylosis of the vertebral body. Loss of intervertebral disc height. Normal bilateral facet joints. Normal central canal and bilateral lateral recesses. Mild left neural foraminal stenosis. There are laminectomy changes in the spine. This is consistent for previous surgery. Pedicle screws are visualized. Hardware appears intact. L4-5: There is endplate spondylosis of the vertebral body. Loss of intervertebral disc height. Normal bilateral facet joints. Normal central canal and bilateral lateral recesses. Moderate bilateral neural foraminal stenosis. Intervertebral neural foramina. There are laminectomy changes in the spine. This is consistent for previous surgery. Pedicle screws are visualized. Hardware appears intact. L5-S1: There is endplate spondylosis of the vertebral body. Loss of intervertebral disc height. Normal bilateral facet joints. Normal central canal and bilateral lateral recesses. Mild left neural foraminal stenosis. There are laminectomy changes in the spine. This is consistent for previous surgery. Pedicle screws are visualized. Hardware appears intact. Normal visualized paraspinous soft tissue structures. CT/Spine Lumbar WITH Contrast IMPRESSION: Multilevel degenerative changes, as described above. There is no evidence to suggest abscess formation. There are calcifications of the abdominal aorta. This is consistent for atherosclerotic disease. There is no abdominal aortic aneurysm. Electronically Signed: José Antonio Ross MD at 22:01 EDT , Service support ,
[2018-01-28 18:07] LABS: Bacteria 0 SEEN /hpf (None Seen); Color, Urine Yellow (Yellow); Glucose, Dipstick Normal (Normal); Ketone-Dipstick Negative (Negative); Mucous, Urine 0 SEEN /hpf (<or=2+); Nitrite-Dipstick Negative (Negative); Occult Blood-Urine 25 /ul (Negative); Protein-Dipstick Negative (Negative); Specific Gravity, Urine 1.005 (1.002-1.030); Urine Bilirubin Dipstick Negative (Negative); Urine Clarity Clear (Clear); Urine Urobilinogen Normal (Normal)
[2018-01-28 18:08] LABS: Leukocyte Esterase-Dipstick Negative /ul (Negative); Red Blood Cells-Urine 0-5 SEEN /hpf (0-5); Squamous Epithelial Cells - UA 0-5 SEEN /hpf (5-10); White Blood Cells 0-5 SEEN /hpf (0-5)
[2018-01-28 21:12] LABS: Anion Gap 6 (5-15); BUN 10 mg/dL (7-18); BUN/Creat Ratio 12.2 RATIO (10-20); Chloride 108 mmol/L (98-107); Creatinine, Serum 0.82 mg/dL (0.55-1.02); EST Glomerular Filtration Rate 79 mL/min (>60); Est Glom Filt Rate - Afr Amer 96 mL/min (>60); Glucose 95 mg/dL (74-106); Potassium 3.5 mmol/L (3.5-5.1); Sodium Level 141 mmol/L (136-145)
[2018-01-29 09:59] LABS: Hematocrit 45.8 % (37-47); Hemoglobin 14.9 g/dl (12.0-15.0); Mean Corp Hgb Conc 32.5 g/gl (32-36); Mean Corpuscular Hgb 31.2 pg (27.0-32.0); Mean Corpuscular Volume 95.8 fL (81-99); Red Blood Count 4.78 M/mm3 (4.2-5.4); White Blood Count 10.6 K/mm3 (4.4-11.0)
[2018-01-29 10:00] LABS: Absolute Neutrophil Count 6.4 X10^3/uL (2.0-7.7); Basophil# 0.05 X10^3/uL; Basophil% 0.5 % (0-1); Eosinophil# 0.11 X10^3/uL; Lymphocyte % 31.2 % (19-41); Mean Platelet Vol. 10.4 fl (6.2-12.0); Monocyte# 0.74 X10^3/uL; Neutrophil # 6.35 X10^3/uL (2.7-7.7); POSITIVE COUNT NO; POSITIVE DIFFERENTIAL NO; POSITIVE MORPHOLOGY NO; Platelet Count 326 K/mm3 (150-450); RBC Distribution Width CV 12.9 % (11.6-14.6); RBC Distribution Width SD 44.1 fl (35.1-43.9)
== END 2018-01-27 00:40 | disposition home or self-care (01) ==
PROVIDERS: Emergency Provider Emergency Medicine; Family Provider Family Medicine; PCP Family Medicine
DX: M54.16 Radiculopathy, lumbar region (principal); M62.830 Muscle spasm of back; G40.909 Epilepsy, unspecified, not intractable, without status epilepticus; Z86.73 Personal history of transient ischemic attack (TIA), and cerebral infarction without residual deficits
CPT/HCPCS: 72132; 80048; 81001; 85025; 96361; 96374; 96375; 96376; 99284; J7030; Q9967; A4216

== ENCOUNTER 2018-02-26 21:30 | Emergency (ER) | payer MEDICARE, SELFPAY ==
[2018-02-26 21:30] VITALS: BP 135/90; PULSE 123; RESP 20; TEMP 36.4; O2SAT 95; BMI 28.8
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
--- NOTE | 2018-02-26 22:02 | NURSING ---
IN THE ROOM TALKING WITH THE PATIENT.
[2018-02-26] MEDS: HYDROmorphone 1 MG/ML Syringe IM (22:10)
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
[2018-02-26 23:19] VITALS: RESP 18
== END 2018-02-26 23:19 | disposition home or self-care (01) ==
LOC: ED 21:54
PROVIDERS: Emergency Provider Emergency Medicine; Family Provider Family Medicine; PCP Family Medicine
DX: M79.604 Pain in right leg (principal); V03.00XA Pedestrian on foot injured in collision with car, pick-up truck or van in nontraffic accident, initial encounter; Y93.9 Activity, unspecified; Y92.481 Parking lot as the place of occurrence of the external cause; I25.2 Old myocardial infarction; J45.909 Unspecified asthma, uncomplicated; M54.9 Dorsalgia, unspecified; G89.29 Other chronic pain; Z79.82 Long term (current) use of aspirin; Z79.891 Long term (current) use of opiate analgesic; Z79.899 Other long term (current) drug therapy; Z86.73 Personal history of transient ischemic attack (TIA), and cerebral infarction without residual deficits; Z72.0 Tobacco use
CPT/HCPCS: 72100; 72170; 73060; 73552; 73590; 73630; 96372; 99282

== ENCOUNTER 2018-07-11 18:33 | Emergency (ER) | payer MEDICARE, SELFPAY ==
[2018-07-11 18:34] VITALS: BP 130/108; PULSE 89; RESP 16; TEMP 37.1; O2SAT 93; BMI 29.5
--- NOTE | 2018-07-11 18:41 | EKG12_ITS ---
Test Reason : CP Blood Pressure : / mmHG Vent. Rate : 080 BPM Atrial Rate : 080 BPM P-R Int : 392 ms QRS Dur : 096 ms QT Int : 408 ms P-R-T Axes : 040 039 051 degrees QTc Int : 470 ms Suspect unspecified pacemaker failure Normal sinus rhythm Abnormal ECG Confirmed by TRACY RICHARDSON, ANISA ([id number]), tape editor AKILA SIMMONS ([id number] on 07/16/2018 11:54:26 AM Referred By: LASHAWN Confirmed By:ANISA MOLINA MD
--- NOTE | 2018-07-11 18:45 | CT_ITS ---
STUDY: CT CHEST WITH CONTRAST REASON FOR EXAM: Female, 48 years old. Chest pain RADIATION DOSAGE (If Supplied By Facility): CTDIvol = ( 13.13 ) mGy, DLP = ( 551.23 ) mGycm TECHNIQUE: Transaxial imaging was performed following intravenous administration of 75 ml of Isovue 370 contrast material. Sagittal and coronal reconstructions were performed. Individualized dose optimization techniques were used for this CT. COMPARISON: Chest radiograph dated November 09, 2017; chest CTA report dated December 28, 2016 FINDINGS: There is minimal biapical scarring. There are small bullae scattered along the periphery of both apices, and in the left upper lobe. There are increased lung markings in the dependent aspects of both lower lobes. There are no focal air space opacities. There is no demonstrated pleural abnormality. The heart is normal in size. The mediastinum is unremarkable. The hilar regions are unremarkable. The pulmonary arteries are unremarkable. The thoracic aorta is within normal limits. There is mild dextroscoliosis of the thoracic spine. There are surgical changes in the lower cervical spine. There are no significant abnormalities in the visualized upper abdomen. CT/CTA Chest W/WO Contrast IMPRESSION: There is no aortic aneurysm or dissection. There are no acute parenchymal abnormalities. There is no focal consolidation. There are mild emphysematous changes in the upper lobes, left more than right. There is minimal dependent atelectasis in both lower lobes. There is no pleural effusion or significant lymphadenopathy. Electronically Signed: Maya Pearson MD at 20:07 EST Tel Direct: [phone], Service support ,
--- NOTE | 2018-07-11 18:45 | ED.DCSUM_ITS ---
- ER Visit Summary Date of Service: 07/11/18 Chief Complaint: Chest pain History of Present Illness: The patient is a 48 F with prior history of stroke and AR presents with 1 hour of chest pain retrosternal and left-sided radiating into her back. She has no abdominal pain. She has nausea but no vomiting. She has no cough or shortness of breath. Pain is moderate to severe. Physical Examination: She appears in some distress. Moist mucous membranes, no obvious facial deformity No C-spine tenderness supple neck. Regular rate and rhythm without any obvious murmurs Clear lungs bilaterally speaking in full sentences without any obvious respiratory distress. She has very reproducible left chest wall pain and rib pain in her back. Abdomen soft with no epigastric or any sort of pain. No guarding or rebound Moves all extremities without any difficulty or pain. Skin does not show any obvious rashes or lesions, no trauma. Alert oriented ?3 with no gross focal deficit ED Course and Treatment: She has a negative troponin and normal EKG. CT angiogram also looks normal. She has reproducible chest wall pain, she is a smoker and has been coughing recently. She does not remember any other injury. She appears well and has an unremarkable workup, I feel comfortable discharging her home. For her safety I explained to her that if her symptoms change in any way she needs to return to the emergency department. Disposition: Discharge stable condition Impression: Chest pain Chest wall pain This note was generated with [employer] dictation software. It may contain incorrect words, spelling, and punctuation that were not noted in review of the chart prior to signing ED Disposition - Plan for ED Patient: Disposition: Home or Assisted Living Chief Complaint: Chest Pain Instructions: ED Chest Pain O , ED Chest Wall Pain Costochond Prescriptions: Hydrocodone/Acetaminophen [Arrington 5-325 Tablet] 1 ea PO TID PRN 2 Days #10 tab PRN Reason: Pain Referrals: Amandeep Loredo [Primary Care Provider] - 3-5 Days
[2018-07-11 18:46] VITALS: O2SAT 98
[2018-07-11] MEDS: Ondansetron 4 MG/2 ML Vial IV (18:50)
[2018-07-11] MEDS: morphine 8 MG/ML Syringe IV (18:52)
[2018-07-11] MEDS: DiphenhydrAMINE 50 MG/ML Syringe 25 MG IV (18:55)
[2018-07-11] MEDS: MethylPREDNISolone 125 MG/2 ML Vial IV (19:00)
[2018-07-11 19:02] VITALS: BP 138/89; PULSE 85; RESP 16; O2SAT 96
[2018-07-11 19:05] LABS: Absolute Lymphocyte Count 2.97 X10^3/ul (0.83-4.51); Absolute Neutrophil Count 4.4 X10^3/uL (2.0-7.7); Basophil# 0.03 X10^3/uL; Basophil% 0.4 % (0-1); Eosinophil# 0.09 X10^3/uL; Eosinophils% 1.1 % (0-5); Hematocrit 46.1 % (37-47); Hemoglobin 14.9 g/dl (12.0-15.0); Lymphocyte # 2.97 X10^3/ul (4.0); Mean Corp Hgb Conc 32.3 g/gl (32-36); Mean Corpuscular Hgb 31.2 pg (27.0-32.0); Mean Corpuscular Volume 96.4 fL (81-99); Mean Platelet Vol. 10.1 fl (6.2-12.0); Monocyte# 0.59 X10^3/uL; Monocyte% 7.3 % (0-10); Neutrophil # 4.35 X10^3/uL (2.7-7.7); Neutrophil % 54.2 % (47-70); Platelet Count 311 K/mm3 (150-450); RBC Distribution Width CV 12.8 % (11.6-14.6); RBC Distribution Width SD 44.7 fl (35.1-43.9); Red Blood Count 4.78 M/mm3 (4.2-5.4)
[2018-07-11 19:21] LABS: AST(SGOT) 16 U/L (15-37); Alanine Aminotransfer ALT/SGPT 33 U/L (13-56); Alkaline Phosphatase 154 U/L (45-117); Anion Gap 7 (5-15); BUN 13 mg/dL (7-18); BUN/Creat Ratio 19.2 RATIO (10-20); Bilirubin, Direct 0.09 mg/dL (0.00-0.30); Calcium,Total 8.9 mg/dL (8.5-10.1); Chloride 108 mmol/L (98-107); Creatinine, Serum 0.68 mg/dL (0.55-1.02); EST Glomerular Filtration Rate 98 mL/min (>60); Est Glom Filt Rate - Afr Amer 119 mL/min (>60); Estimated Creatinine Clearance 100.95 ml/min; Globulin 3.9 g/dL (2.2-4.2); Glucose 96 mg/dL (74-106); Lipase 178 U/L (73-393); Potassium 3.7 mmol/L (3.5-5.1); Protein, Total 7.9 g/dL (6.4-8.2); Sodium Level 141 mmol/L (136-145)
[2018-07-11 19:26] LABS: POSITIVE COUNT NO; POSITIVE DIFFERENTIAL NO; POSITIVE MORPHOLOGY NO
[2018-07-11 20:07] VITALS: BP 131/89; PULSE 82; RESP 14; O2SAT 97
[2018-07-11] MEDS: Ketorolac 15 MG/ML Vial IV (20:08)
[2018-07-11] MEDS: Morphine 4 MG/ML Syringe IV (20:08)
[2018-07-11 20:35] VITALS: BP 127/75; PULSE 76; RESP 16; O2SAT 98
--- NOTE | 2018-07-11 20:42 | ED.DCSUM_ITS ---
- ER Visit Summary Date of Service: 07/11/18 Chief Complaint: [] History of Present Illness: The patient is a 48 F [] Physical Examination: [] Test Results: [] Emergency Department Course and Treatment: [] Treatment Plan: [] Disposition: [] Impression: [] This note was generated with [employer] dictation software. It may contain incorrect words, spelling, and punctuation that were not noted in review of the chart prior to signing ED Disposition - Plan for ED Patient: Disposition: Home or Assisted Living Chief Complaint: Chest Pain Instructions: ED Chest Pain UKO , ED Chest Wall Pain Costochond Ch Prescriptions: Tramadol HCl [Ultram] 50 mg PO BID #10 tab Hydrocodone/Acetaminophen [Josephine 5-325 Tablet] 1 ea PO TID PRN 2 Days #10 tab PRN Reason: Pain Referrals: Amandeep Loredo [Primary Care Provider] - 3-5 Days
== END 2018-07-11 20:43 | disposition home or self-care (01) ==
PROVIDERS: Emergency Provider Emergency Medicine; Family Provider Family Medicine; PCP Family Medicine
DX: R07.89 Other chest pain (principal); I25.2 Old myocardial infarction; G40.909 Epilepsy, unspecified, not intractable, without status epilepticus; Z79.82 Long term (current) use of aspirin; Z79.899 Other long term (current) drug therapy; Z86.73 Personal history of transient ischemic attack (TIA), and cerebral infarction without residual deficits; Z72.0 Tobacco use
CPT/HCPCS: 71275; 80048; 80076; 83690; 84484; 85025; 93005; 96374; 96375; 96376; 99285; J7030; Q9967; A4216; J2405

== ENCOUNTER 2018-07-12 19:40 | Emergency (ER) | payer MEDICARE, SELFPAY ==
[2018-07-11 18:34] VITALS: BMI 29.5
[2018-07-12 19:41] VITALS: BP 134/73; PULSE 95; RESP 18; TEMP 36.7; O2SAT 99; BMI 29.5
--- NOTE | 2018-07-12 19:58 | EKG12_ITS ---
Test Reason : BACK Blood Pressure : / mmHG Vent. Rate : 090 BPM Atrial Rate : 090 BPM P-R Int : 162 ms QRS Dur : 098 ms QT Int : 364 ms P-R-T Axes : 057 035 038 degrees QTc Int : 445 ms Suspect unspecified pacemaker failure Normal sinus rhythm Possible Left atrial enlargement RSR' or QR pattern in V1 suggests right ventricular conduction delay Borderline ECG Confirmed by TRACY RICHARDSON, ANISA ([id number]), continuity editor AKILA SIMMONS ([id number]) on 07/14/2018 11:21:41 AM Referred By: BEA Confirmed By:ANISA MOLINA MD
--- NOTE | 2018-07-12 20:10 | RAD_ITS ---
STUDY: X-RAY CHEST REASON FOR EXAM: Female, 48 years old. Chest pain TECHNIQUE: Frontal views of the chest were obtained. COMPARISON: Chest CT dated July 11, 2018 FINDINGS: The lungs are adequately aerated. There are no focal airspace opacities. There is no demonstrated pleural abnormality. The cardiac silhouette is normal in size. The mediastinum and hilar regions are unremarkable. Normal visualized pulmonary arteries. Normal visualized aortic arch and descending thoracic aorta. There are surgical changes in the cervical spine. The visualized ribs, clavicles, and shoulders are unremarkable. There is no demonstrated abnormality of the visualized upper abdomen. RAD/Chest 1 View (Portable) IMPRESSION: No acute cardiopulmonary abnormalities. Electronically Signed: Maya Pearson MD at 20:47 EST Tel Direct: [phone], Service support ,
[2018-07-12] MEDS: Ondansetron 4 MG/2 ML Vial IV ×2 (20:33→22:22)
[2018-07-12] MEDS: HYDROmorphone 1 MG/ML Syringe 0.5 MG IV (20:33)
[2018-07-12] MEDS: 0.9% Normal Saline 1,000 ML 150 ML IV ×2 (20:34→22:24)
[2018-07-12 20:47] LABS: Absolute Lymphocyte Count 4.06 X10^3/ul (0.83-4.51); Absolute Neutrophil Count 8.8 X10^3/uL (2.0-7.7); Basophil# 0.01 X10^3/uL; Basophil% 0.1 % (0-1); Eosinophil# 0.01 X10^3/uL; Eosinophils% 0.1 % (0-5); Hematocrit 41.4 % (37-47); Hemoglobin 13.8 g/dl (12.0-15.0); Lymphocyte # 4.06 X10^3/ul (4.0); Lymphocyte % 28.7 % (19-41); Mean Corp Hgb Conc 33.3 g/gl (32-36); Mean Corpuscular Volume 96.1 fL (81-99); Mean Platelet Vol. 10.4 fl (6.2-12.0); Monocyte# 1.25 X10^3/uL; Monocyte% 8.8 % (0-10); Neutrophil # 8.82 X10^3/uL (2.7-7.7); Neutrophil % 62.2 % (47-70); Platelet Count 291 K/mm3 (150-450); RBC Distribution Width CV 12.6 % (11.6-14.6); RBC Distribution Width SD 42.7 fl (35.1-43.9); Red Blood Count 4.31 M/mm3 (4.2-5.4); White Blood Count 14.2 K/mm3 (4.4-11.0)
[2018-07-12 20:49] LABS: POSITIVE COUNT NO; POSITIVE DIFFERENTIAL NO; POSITIVE MORPHOLOGY NO
[2018-07-12 21:06] LABS: AST(SGOT) 15 U/L (15-37); Alanine Aminotransfer ALT/SGPT 31 U/L (13-56); Albumin, Serum 3.3 g/dL (3.2-5.0); Alkaline Phosphatase 122 U/L (45-117); BUN 15 mg/dL (7-18); BUN/Creat Ratio 18.8 RATIO (10-20); Bilirubin, Direct 0.06 mg/dL (0.00-0.30); EST Glomerular Filtration Rate 81 mL/min (>60); Est Glom Filt Rate - Afr Amer 98 mL/min (>60); Estimated Creatinine Clearance 85.81 ml/min; Globulin 3.3 g/dL (2.2-4.2); Glucose 90 mg/dL (74-106); Lipase 149 U/L (73-393); Protein, Total 6.6 g/dL (6.4-8.2)
--- NOTE | 2018-07-12 21:06 | ED.RN ---
LAB CALLED WITH CRITICAL LAB RESULTS. SODIUL LEVEL 113. DR. FIGUEREDO MADE AWARE NO NEW ORDERS AT THIS TIME
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
[2018-07-12 21:34] LABS: Anion Gap 6 (5-15); BUN 16 mg/dL (7-18); BUN/Creat Ratio 19.4 RATIO (10-20); Calcium,Total 8.2 mg/dL (8.5-10.1); Chloride 110 mmol/L (98-107); Creatinine, Serum 0.82 mg/dL (0.55-1.02); EST Glomerular Filtration Rate 78 mL/min (>60); Est Glom Filt Rate - Afr Amer 95 mL/min (>60); Estimated Creatinine Clearance 83.72 ml/min; Glucose 96 mg/dL (74-106); Potassium 3.9 mmol/L (3.5-5.1); Sodium Level 143 mmol/L (136-145)
[2018-07-12 21:41] VITALS: BP 142/78; PULSE 98; RESP 19; O2SAT 98
[2018-07-12] MEDS: 0.9% Normal Saline 1,000 ML 999 ML IV (21:42)
[2018-07-12] MEDS: diazePAM 5 MG Tablet PO (21:46)
[2018-07-12] MEDS: HYDROmorphone 0.5 MG/0.5 ML SYRINGE IV (22:22)
--- NOTE | 2018-07-12 22:58 | ED.DEP ---
ED Disposition - Plan for ED Patient: Disposition: Home or Assisted Living Chief Complaint: Back Instructions: ED Sprain Strain Lumbar, ED Strain Chest Wall Prescriptions: Diazepam [Valium] 5 mg PO Q8 PRN #10 tablet PRN Reason: Muscle Spasm Naproxen [Naprosyn] 500 mg PO BID PRN #20 tablet Referrals: Amandeep Loredo [Primary Care Provider] - Mandy Robledo MD [STAFF PHYSICIAN] - Keep Alisia appointment
[2018-07-12] MEDS: Ketorolac 30 MG/ML Syringe IV (23:04)
[2018-07-12] MEDS: diazePAM 2 MG Tablet PO (23:17)
[2018-07-12 23:20] VITALS: BP 132/76; PULSE 96; RESP 16; RESP 20; O2SAT 97
--- NOTE | 2018-07-12 23:21 | ED.RN ---
REVIEWED D/C INSTRUCTIONS, FOLLOW UP CARE, PRESCRIPTIONS, AND S/S THAT WOULD WARRANT A RETURN TO THE ED WITH PT. PT VERBALIZED AN UNDERSTANDING AND DENIES FURTHER QUESTIONS FOR THIS RN. PT SKIN P/W/D, RESP EVEN AND UNLABORED, PT A&O X 3, NO DISTRESS NOTED. PT AMBULATED OUT OF ED, GAIT STEADY.
[2018-07-13 10:22] LABS: Anion Gap 8 (5-15); Chloride 110 mmol/L (98-107); Potassium 4.1 mmol/L (3.5-5.1); Sodium Level 142 mmol/L (136-145)
[2018-07-13 10:23] LABS: Calcium,Total 8.5 mg/dL (8.5-10.1)
== END 2018-07-12 23:22 | disposition home or self-care (01) ==
PROVIDERS: Emergency Provider Emergency Medicine; Family Provider Family Medicine; PCP Family Medicine
DX: R07.89 Other chest pain (principal); M62.830 Muscle spasm of back; I48.0 Paroxysmal atrial fibrillation; I25.2 Old myocardial infarction; G40.909 Epilepsy, unspecified, not intractable, without status epilepticus; J45.909 Unspecified asthma, uncomplicated; K21.9 Gastro-esophageal reflux disease without esophagitis; Z79.82 Long term (current) use of aspirin; Z79.899 Other long term (current) drug therapy; Z86.73 Personal history of transient ischemic attack (TIA), and cerebral infarction without residual deficits; Z72.0 Tobacco use
CPT/HCPCS: 71045; 80048; 80076; 83690; 84484; 85025; 93005; 96361; 96374; 96375; 96376; 99285; J7030; A4216; J2405

== ENCOUNTER 2018-09-08 12:23 | Emergency (ER) | payer MEDICARE, SELFPAY ==
[2018-09-08 12:24] VITALS: BP 141/86; PULSE 94; RESP 17; TEMP 36.8; O2SAT 95; BMI 29.7
--- NOTE | 2018-09-08 13:09 | CT_ITS ---
STUDY: CT BRAIN WITHOUT CONTRAST REASON FOR EXAM: Female, 48 years old. Severe headaches. History of prior aneurysmal repair. RADIATION DOSAGE (If Supplied By Facility): CTDIvol = ( 44.99 ) mGy, DLP = ( 779.24 ) mGycm TECHNIQUE: Transaxial CT imaging of the brain was performed without administration of intravenous contrast material. Individualized dose optimization techniques were used for this CT. COMPARISON: None. FINDINGS: Normal soft tissue structures. Normal calvarium. Normal size ventricles and extra-axial spaces for the patient's age. Normal white matter tracts of the cerebral hemispheres. Normal basal ganglia and thalami. Normal brainstem. Normal cerebellum. There is no intracranial hemorrhage. There are no findings of an acute ischemic infarction. 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 This is unchanged. Normal visualized paranasal sinuses. CT/Brain/Head without Contrast IMPRESSION: Normal unenhanced CT scan of the brain. Electronically Signed: Luiz Neff MD at 13:46 EST Tel [phone], Service support ,
--- NOTE | 2018-09-08 13:10 | ED.VISSUMM ---
- ER Visit Summary Date of Service: 09/08/18 Chief Complaint: Headache History of Present Illness: The patient is a 48 F history of chronic pain, CVA, TIA, prior renal CA with renal resection. Patient sees Dr. Pink for pain management. States she saw him yesterday. He did some type of back injection. Today she has had nausea and vomiting with a headache since early this morning around 2:30 AM. She denies any falls or head trauma. She denies any sinus congestion or fever. There is been no head or facial trauma. She is on no blood thinners. Physical Examination: Middle-aged female no acute distress. Vital signs are stable and afebrile. H EENT exam pupils round reactive light. Normal speech. No facial droop. No signs of trauma to the face or scalp. Normal speech. Neck nontender no meningismus. Lungs clear to auscultation bilaterally. Heart regular rate and rhythm no murmur. Chest wall nontender. Abdomen soft nontender. Normal bowel sounds. Patient moving all 4 extremities. Equal symmetrical software applications specialist strength. Dorsi plantar flexion intact. Back nontender. Neurologically awake and alert with no focal motor or sensory deficits. Night score is 0. Test Results: CAT scan of the brain shows no acute abnormality is reviewed by me read by the radiologist. Emergency Department Course and Treatment: Patient treated with IV fluids, IV Toradol and Benadryl. Also IV Phenergan. Patient had improvement was still having headache. Repeat exam is unchanged. Neurologically she is intact. She was given a dose of IV Nubain. She does have a ride home. Treatment Plan: Follow-up with primary care physician. Return if feeling worse. Disposition: Discharge Impression: Acute Cephalgia of uncertain etiology History of chronic pain status post back injection This note was generated with [employer] dictation software. It may contain incorrect words, spelling, and punctuation that were not noted in review of the chart prior to signing ED Disposition - Plan for ED Patient: Chief Complaint: Numb/Ting Referrals: Amandeep Loredo [Primary Care Provider] -
[2018-09-08] MEDS: proMETHazine 25 MG/ML Syringe 12.5 MG IV (13:17)
[2018-09-08] MEDS: DiphenhydrAMINE 50 MG/ML Syringe 25 MG IV (13:17)
[2018-09-08] MEDS: Ketorolac 30 MG/ML Syringe IV (13:17)
[2018-09-08] MEDS: 0.9% Normal Saline 1,000 ML 1000 ML IV (13:18)
[2018-09-08 14:35] VITALS: BP 117/89; PULSE 89; RESP 15; O2SAT 96
--- NOTE | 2018-09-08 14:37 | ED.DEP ---
ED Disposition - Plan for ED Patient: Disposition: Home or Assisted Living Chief Complaint: Numb/Ting Instructions: ED Cephalgia Unspecified Referrals: Amandeep Loredo [Primary Care Provider] - As Needed Additional Instructions: Call follow-up with your doctor. Return to the ER feeling worse.
[2018-09-08] MEDS: Nalbuphine 10 MG/ML Ampul 5 MG IV (15:25)
--- OUTSIDE RECORDS SUMMARY | 2018-11-13 10:23 | XMS RPT_ITS ---
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 10/09/17 1555 MR#: [id number] Acct: [id number] Name: ORTIZ [place] Rep #: [id number] : 1970 47 From: Alfred Sotomayor DO PCP: AMANDEEP LOREDO Status: ADM IN Y Location: [facility] [id number] Discharge Date and Diagnosis - Problem List Patient Problems: Active and Suspected Problems Gastroparesis (Acute) Date of Admission: 10/07/17 Date of Discharge: 10/09/17 - Primary Discharge Diagnosis Active and Suspected Problems Gastroparesis (Acute) - Secondary Discharge Diagnosis Chronic Problems PTSD (post-traumatic stress disorder) (Chronic) History of lumbar fusion (Chronic) Weakness of left leg (Chronic) History of stroke without residual deficits (Chronic) Depression (Chronic) Migraine (Chronic) Seizure disorder (Chronic) 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 Electronically Signed: José Antonio Ross MD at 23:02 EST , Service support , KUB X-Ray 10/07/17 00:53 IMPRESSION: Nonobstructive bowel gas pattern Electronically Signed: Keegan Knowles MD at 2:01 EST Tel , Service support , KUB X-Ray 10/07/17 05:55 IMPRESSION: The tip of the oral gastric tube is in the distal portion of the stomach. The gas pattern is unremarkable. Electronically Signed: Luiz Neff MD at 8:41 EST Tel [phone], Service support , Abdomen/Pelvis CT 10/09/17 10:09 IMPRESSION: No acute abnormality is seen. Electronically Signed: Luiz Neff MD at 11:41 EST Tel [phone], Service support , Operations: None, - Procedures: None Summary of Care Provided: The patient is a 47 year old F with intractable nausea and vomiting. Patient had initial CAT scan that showed no acute process but the patient was actively vomiting so patient did have a nasogastric tube placed in the emergency room. Patient did have a copious amount of fluid removed with. He had the patient does have known history of gastroparesis that has been deemed idiopathic as patient is not a diabetic. Patient has a gastric pacemaker as well. Patient has been concerned that her gastric pacemaker is malfunctioned. Patient was told that her battery will need to be changed soon but she is not been told that the batteries been as of yet. So patient's nasogastric tube was removed yesterday patient was advanced to clear diet, to which she tolerated. And today patient was advanced to more regular diet which she again is also tolerating. I did talk to patient about narcotics and how they can potentiate gastroparesis and to use narcotics sparingly. Patient does complain of pain in her left lower quadrant. The pain seems to be well out of proportion to her exam. Patient is concerned that her gastric pacemaker has migrated down from her epigastrium to her left lower quadrant. I reviewed the patient's prior scans dating back to 2015 and told her that it appears to be in the same physician and has been since that time. So I did repeat another CAT scan that showed no abscess or any other sign of it being compromised. And clinically, despite the patient's pain, there is no induration and no fluctuance and the like. Patient is instructed to follow-up with Dr. Taylor, who put her gastric pacemaker and, and to see if anything additional needs to be done without aware if he can be interrogated. [] Discharge Diet: No Restrictions Discharge Activity: Return to Normal Activity Call your doctor if you observe: Fever of 101 or Higher, Shortness of breath, - - worsening abdominal pain. Intractable nausea vomiting. Home Medications: Medications to take at Discharge Oxycodone HCl [Oxycodone HCl ER] 20 mg PO BID PRN 07/22/16 Albuterol Sulfate [Ventolin Hfa] 2 puff IH Q6H PRN PRN 09/30/16 Fluticasone 0.05% [Flonase Nasal Shreve] 2 spray NASAL BID 09/30/16 Aspirin [Aspirin, Baby] 81 mg PO DAILY@0800 tab.chew 12/31/16 Fluticasone/Salmeterol [Advair 250-50 Diskus] 1 each IH PRN PRN 12/31/16 Levetiracetam [Keppra] 1,000 mg PO Q12H 01/14/18 Amitriptyline HCl [Elavil] 20 mg PO QHS 10/07/17 Ondansetron [Zofran] 8 mg PO Q8H PRN PRN #20 tab 10/09/17 Pantoprazole Sodium [Protonix] 40 mg PO BID #60 tab 10/09/17 Following Prescrptions Were Given to Patient: Ondansetron [Zofran] 8 mg PO Q8H PRN PRN #20 tab PRN Reason: nausea vomiting Pantoprazole Sodium [Protonix] 40 mg PO BID #60 tab Primary Care Physician: Amandeep Loredo [Primary Care Provider] - Within 2 Weeks Please Follow Up With: Jorge Luis Taylor - gastric pacemaker check When: 2-4 weeks Disposition: Home Minutes spent on discharge:: 32 Patient Condition:: Good Meaningful Use Info Meaningful Use Diagnoses (Choose all that apply): None applicable Code Visit Inpatient E AND M: 67290 Disch Hosp 10/09/17 1600 <Electronically signed by Alfred Sotomayor DO> Date Alfred Sotomayor DO Cosigner Signature (if applicable): Date CC: AMANDEEP LOREDO; Alfred Sotomayor DO; JORGE LUIS TAYLOR Signed DISCHARGE INSTRUCTION Observed: 10/09/2017 Status: F Source: CECILIA 3:55 PM [facility] REPOSITORY [facility] Medical Records Department [address] [place] [address] Instructions for Home/Discharge Instructions 10/09/17 1553 MR#: [id number] Acct: [id number] Name: ORTIZ [place] Rep #: [id number] : 1970 47 From: Alfred Sotomayor DO PCP: AMANDEEP LOREDO Status: ADM IN - Discharge Diagnoses Current Active Problems: Current Active and Chronic Problems Gastroparesis (Acute) You will use the following diet at home:: No restrictions - bland, advance as tolerated. Do not overeat. Your food should be the consistency of: Regular Your liquids should be the consistency of: Regular/Thin Discharge Activity: Return to Normal Activity Call your doctor if you observe: Fever of 101 or Higher, Shortness of breath, - - worsening abdominal pain. Intractable nausea vomiting. Allergies/Adverse Reactions: Allergies Penicillins Allergy (Verified 10/06/17 21:03) Anaphylaxis propoxyphene napsylate [From Darvocet-N 100] Allergy (Verified 10/06/17 21:03) Rash hydrocodone bitartrate [From Vicodin] Adverse Reaction (Verified 10/06/17 21:03) Itching latex Adverse Reaction (Verified 10/06/17 21:03) blistering of skin venom-honey bee [bee venom (honey bee)] Adverse Reaction (Verified 10/06/17 21:03) Chest tightness PLASTIC TAPE Allergy (Uncoded 10/07/17 03:40) blistering IV contrast Adverse Reaction (Uncoded 10/06/17 21:03) Vomiting Medications to take at Discharge Oxycodone HCl [Oxycodone HCl ER] 20 mg PO BID PRN 07/22/16 Albuterol Sulfate [Ventolin Hfa] 2 puff IH Q6H PRN PRN 09/30/16 Fluticasone 0.05% [Flonase Nasal Shreve] 2 spray NASAL BID 09/30/16 Aspirin [Aspirin, Baby] 81 mg PO DAILY@0800 tab.chew 12/31/16 Fluticasone/Salmeterol [Advair 250-50 Diskus] 1 each IH PRN PRN 12/31/16 Levetiracetam [Keppra] 1,000 mg PO Q12H 09/06/17 Amitriptyline HCl [Elavil] 20 mg PO QHS 10/07/17 Ondansetron [Zofran] 8 mg PO Q8H PRN PRN #20 tab 10/09/17 Pantoprazole Sodium [Protonix] 40 mg PO BID #60 tab 10/09/17 The following prescriptions were given: Ondansetron [Zofran] 8 mg PO Q8H PRN PRN #20 tab PRN Reason: nausea vomiting Pantoprazole Sodium [Protonix] 40 mg PO BID #60 tab Primary Care Physician: Amandeep Loredo [Primary Care Provider] - Within 2 Weeks Please Follow Up With: Jorge Luis Taylor - gastric pacemaker check When: 2-4 weeks Proposed Discharge Date: 10/09/17 10/09/17 1555 <Electronically signed by Alfred Sotomayor DO> Date Alfred Sotomayor DO CC: AMANDEEP LOREDO ABDOMEN/PELVIS W IV CONT Observed: 10/09/2017 Status: F Source: CECILIA ONLY 10:11 AM [facility] REPOSITORY [facility] Imaging Services [address] [place] [address] Abdomen/Pelvis W IV Cont ONLY MR#: [id number] Acct: [id number] Name: ORTIZ [place] Rep #: [id number] : 1970 F 47 From: Luiz Neff MD PCP: AMANDEEP LOREDO Status: ADM IN Study: Abdomen/Pelvis W IV Cont ONLY Date of Exam: 10/09/17 Exam# [id number] Ordering Dr: Alfred Sotomayor DO STUDY: CT ABDOMEN AND PELVIS WITH CONTRAST REASON FOR EXAM: Female, 47 years old. Left lower quadrant pain. RADIATION DOSAGE (If Supplied By Facility): CTDIvol = ( 19.70 ) mGy, DLP = ( 1545.29 ) mGycm TECHNIQUE: Transaxial images were obtained from the dome of the diaphragm to the symphysis pubis without oral contrast. 80ML ml of Isovue 300 contrast was administered. Sagittal and coronal images were reconstructed. Individualized dose optimization techniques were used for this CT. COMPARISON: Comparison is made with prior examination dated October 06, 2017. FINDINGS: Mild degree of dependent bibasilar atelectasis. The visualized portions of the heart are within normal limits. There is decreased attenuation of the liver consistent with steatosis. There are surgical clips in the gallbladder fossa consistent with a prior cholecystectomy. Normal spleen. Normal pancreas. Normal bilateral adrenal glands. Normal right kidney. Normal left kidney. Normal visualized stomach. Normal small intestine. There are scattered colonic diverticula consistent with diverticulosis. There is non-visualization of the appendix. Normal abdominal aorta. Normal inferior vena cava. Normal retroperitoneum. Normal urinary bladder. A pacemaker battery pack is seen in the subcutaneous tissues in the left mid abdomen. The electrodes appear to end along the lesser curvature of the stomach suggestive of a gastric pacemaker. Prior laminectomy and fusion in the lower lumbar spine. CT/Abdomen/Pelvis W IV Cont ONLY IMPRESSION: No acute abnormality is seen. Electronically Signed: Luiz Neff MD at 11:41 EST Tel [phone], Service support , CC: AMANDEEP LOREDO; Alfred Sotomayor DO Director Of Purchasing: Signed CBC W/DIFF, AUTOMATED Collected: 10/08/2017 Status: F Source: CECILIA 5:20 AM [facility] REPOSITORY TYPE CODE TESTS RESULT OUT OF RANGE REFERENCE UNITS LAB L100.1000 4.4-11.0 K/mm3 High WBC 11.1 LAB L100.1200 4.2-5.4 M/mm3 Normal RBC 4.79 LAB L100.1300 12.0-15.0 g/dl High HGB 15.2 LAB L100.1400 37-47 % Normal HCT 46.1 LAB L100.1500 81-99 fL Normal MCV 96.2 LAB L100.1600 27.0-32.0 pg Normal MCH 31.7 LAB L100.1700 32-36 g/gl Normal MCHC 33.0 LAB L100.1810 11.6-14.6 % Normal RDW CV 12.3 LAB L100.1820 35.1-43.9 fl Normal RDW SD 42.5 LAB L100.1900 150-450 K/mm3 Normal PLT 272 LAB L100.2000 6.2-12.0 fl Normal MPV 10.1 LAB L100.2100 47-70 % Normal NEUT% 61.7 LAB L100.2200 19-41 % Normal LY% 29.1 LAB L100.2300 0-10 % Normal MONO% 7.7 LAB L100.2400 0-5 % Normal EO% 0.7 LAB L100.2500 0-1 % Normal BASO% 0.6 LAB L100.2550 0.0-0.9 % Normal IM GRAN % 0.200 Result Comment: IG% - Immature Granulocytes (promyelocytes, myelocytes and metamyelocytes) > 1% indicates that a LEFT SHIFT is Present. LAB L100.2620 2.0-7.7 X10 3/uL Normal Absolute Neut 6.9 LAB L100.2720 0.83-4.51 X10 3/ul Normal Absolute Lymph 3.24 Performed By: #### L100.0100 #### [facility] [address] [place], [place], [address] BASIC METABOLIC Collected: 10/08/2017 Status: F Source: CORFU PROFILE (BMP) 5:20 AM [facility] REPOSITORY TYPE CODE TESTS RESULT OUT OF RANGE REFERENCE UNITS LAB L501.0100 74-106 mg/dL Normal GLU 90 Result Comment: Please note revised GLUCOSE reference range effective 2017. LAB L501.1000 7-18 mg/dL Low BUN 6 LAB L501.1100 0.55-1.02 mg/dL Normal CREAT,SERUM 0.72 Result Comment: The validity of the calculated GFR AND GFRAA in patients over 70 years has not been determined. Clinical correlation is essential. LAB L501.1110 >60 mL/min Normal EST GFR 92 Result Comment: Non- GFR Calc LAB L501.1115 >60 mL/min Normal EST GFR - AA 111 Result Comment: GFR Calc LAB L501.1255 ml/min Normal Estimated CRCL 96.39 LAB L501.1300 10-20 RATIO Low BUN/CRE 8.4 LAB L501.2200 8.5-10 mg/dL Normal .1 CA 8.6 LAB L501.5300 136-14 mmol/L Normal 5 NA 140 LAB L501.5600 3.5-5. mmol/L Normal 1 K 3.9 LAB L501.5900 98-107 mmol/L Normal CL 106 LAB L501.6100 21.0-3 mmol/L Normal 2.0 CO2 26.0 LAB L501.6200 5-15 Normal GAP 8 Performed By: #### L500.2500 #### [facility] [address] [place], [address] ABDOMEN SINGLE VIEW Observed: 10/07/2017 Status: F Source: CECILIA (PORTABLE) 3:32 AM [facility] REPOSITORY [facility] Imaging Services [address] [place] [address] Abdomen Single View (Portable) MR#: [id number] Acct: [id number] Name: ORTIZ [place] Rep #: [id number] : 1970 F 47 From: Luiz Neff MD PCP: AMANDEEP LOREDO Status: ADM MARTINA Study: Abdomen Single View (Portable) Date of Exam: 10/07/17 Exam# [id number] Ordering Dr: Jarett Bennett MD STUDY: X-RAY - ABDOMEN/PELVIS REASON FOR EXAM: Female, 47 years old. Nausea and vomiting. TECHNIQUE: Two AP supine views of the abdomen and pelvis. COMPARISON: Comparison is made with prior examination done earlier in the day. FINDINGS: Normal visualized lung bases. An oral gastric tube is seen. The tip is in the distal portion of the stomach There is an unremarkable bowel gas pattern. The patient is status post cholecystectomy. Normal soft tissue structures. Prior integrated screw fixation of the lower lumbar spine. A TENS unit is seen overlying the left iliac bone. RAD/Abdomen Single View (Portable) IMPRESSION: The tip of the oral gastric tube is in the distal portion of the stomach. The gas pattern is unremarkable. Electronically Signed: Luiz Neff MD at 8:41 EST Tel [phone], Service support , CC: AMANDEEP LOREDO; Jarett Bennett Director Of Purchasing: Signed HISTORY AND PHYSICAL Observed: 10/07/2017 Status: F Source: CORFU EXAM 2:15 AM [facility] REPOSITORY [facility] Medical Records Department [address] [place] [address] History and Physical 10/07/17 0201 MR#: [id number] Acct: [id number] Name: ORTIZ [place] Rep #: [id number] : 1970 47 From: Jarett Bennett MD PCP: AMANDEEP LOREDO Status: ADM MARTINA Y Location: MS3 [id number] Problem List (1) PTSD (post-traumatic stress disorder) Status: Chronic (2) History of stroke without residual deficits Status: Chronic (3) Depression Status: Chronic (4) Migraine Status: Chronic (5) Seizure disorder Status: Chronic (6) gastric pacemaker Status: Chronic (7) Nondiabetic gastroparesis Status: Chronic (8) 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 Status: Chronic History of Present Illness Date of Admission: 10/07/17 Chief Complaint: Nausea, vomiting, abdominal bloating and pain. The patient is a 47 year old F with past medical history as mentioned above presented to the emergency room because of nausea, vomiting, abdominal pain and bloating. Her illness started 3 days ago with nausea and vomiting, associated with abdominal distention/bloating and today, she started having abdominal pain. Today morning, she continued to have nausea and vomiting, started to have abdominal pain, in the mid region of the abdomen, more on the left lower side, sharp pain, 8 out of 10 in severity, not radiating, associated with intractable nausea and vomiting as well as increasing abdominal distention and bloating, and without aggravating or relieving factors. She denies fever or chills. She denied constipation or diarrhea. She mentioned that she has been having bowel movements with small amount of normal stool. She had a history of idiopathic/nondiabetic gastroparesis status post gastric pacemaker placement 5 years ago. According to the patient, the settings of the gastric pacemaker is up to the maximum and she is still symptomatic from time to time. In the emergency room, apart from tachycardia upon arrival to ER, her other vitals were stable. She received 2 doses of IV morphine and 2 doses of IV hydromorphone for abdominal pain without significant improvement. Her routine blood work is remarkable for hemoglobin of 16.4 indicating hemoconcentration/dehydration, otherwise normal. LFT and lipase were normal. CT scan abdomen and pelvis without contrast revealed nonobstructive 1-2 mm right renal parenchymal stone, otherwise unremarkable. X-ray abdomen revealed nonobstructive bowel pattern. She is being admitted for intractable nausea and vomiting/intractable abdominal pain due to idiopathic gastroparesis as well as dehydration. 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) Nondiabetic gastroparesis (Chronic) 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 (Chronic) IT band syndrome (Chronic) Allergies Penicillins Allergy (Verified 10/06/17 21:03) Anaphylaxis propoxyphene napsylate [From Darvocet-N 100] Allergy (Verified 10/06/17 21:03) Rash hydrocodone bitartrate [From Vicodin] Adverse Reaction (Verified 10/06/17 21:03) Itching latex Adverse Reaction (Verified 10/06/17 21:03) blistering of skin venom-honey bee [bee venom (honey bee)] Adverse Reaction (Verified 10/06/17 21:03) Chest tightness PLASTIC TAPE Allergy (Uncoded 10/06/17 21:03) Rash IV contrast Adverse Reaction (Uncoded 10/06/17 21:03) Vomiting Home Medications: Ambulatory Orders Medication Instructions Recorded Omeprazole [Prilosec] 20 mg PO BID 07/20/15 Oxycodone HCl [Oxycodone HCl ER] 20 mg PO BID PRN 07/22/16 Albuterol Sulfate [Ventolin Hfa] 2 puff IH Q6H PRN PRN 09/30/16 Surgical History: appendectomy, cholecystectomy, hysterectomy, - - Multiple abdominal surgeries, including for kidney tumor, hysterectomy, cholecystectomy, endometriosis, brain aneursyms clamped and coiled. 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 MANAGER TRADING History: No pertinent MANAGER TRADING history Lives: Spouse/ Significant Other Smoking Status: Former smoker Alcohol: None Drugs: None - *Family History Maternal History Items: Unknown Paternal History Items: No pertinent history Review of Systems Constitutional: Reports: Anorexia. Denies: Chills, Fever, Weakness Eyes: Denies: Blurred vision, Double vision, Drainage, Redness HEENT: Denies: Difficulty Hearing, Ear Pain, Eye Pain, Nasal Congestion, Sore Throat Cardiovascular: Denies: Chest Pain, Chest Pressure, Chest Tightness, Heaviness, Light Headedness, Palpitations, Syncope Respiratory: Denies: Cough, Pleuritic Pain, Shortness of Breath, Sputum production, Wheezing Gastrointestinal: Reports: Abdominal Pain, Nausea, Vomiting. Denies: Constipation, Diarrhea, Hematochezia, Melena Genitourinary: Denies: Dysuria, Frequency, Hematuria Musculoskeletal: Denies: Arm Pain, Back Pain, Foot Pain Skin: Denies: Dryness, Rash Neurological: Denies: Balance problems, Double vision, Change in Speech, Slurred speech, Confusion, Focal weakness, Incoordination, Numbness, Tingling Psychiatric: Reports: Depression. Denies: Anxiety VTE Information - Inpt Only VTE Present on Admission: No VTE Mechan Device Prophylaxis: None VTE Pharm Prophylaxis ordered?: No - Physical Exam General: Alert, Oriented x3, Cooperative, - - Symptoms tearful, and severe distress because of abdominal pain and NG tube. HEENT: Atraumatic, PERRLA, EOMI Oral: Moist Mucosa, No Gingival or Mucosal Lesions/ Ulcerations Neck: Supple, No JVD, Negative Carotid Bruits, Trachea Midline, Thyroid Normal Size and Texture Lungs: Clear to auscultation, No rhonchi, No wheeze, No rales, Diminished Cardiovascular: Regular rate, Regular Rhythm, Normal S1, Normal S2, No murmurs, PMI Normal Abdomen: No Hepato-splenomegaly, Hypoactive Bowel Sounds, Distended, Tender Extremities: No clubbing, No cyanosis, No edema Skin: No rashes, No breakdown Lymphatic: No Cervical, Supraclavicular, or Inguinal Adenopathy Neurological: Cranial nerves II-XII grossly intact, Motor Exam 5/5 strength throughout Psych/Mental Status: Normal Affect, Appropriate, Alert and oriented to time, place, person, mood and affect Vital Signs Temp Pulse Resp BP Pulse Ox 96.8 F L 88 18 141/91 H 97 10/07/17 01:39 10/07/17 01:39 10/07/17 01:39 10/07/17 01:39 10/07/17 01:31 Laboratory Tests WBC 8.7 (4.4-11.0) K/mm3 RBC 5.12 (4.2-5.4) M/mm3 Hgb 16.4 H (12.0-15.0) g/dl Hct 49.1 H (37-47) % Clinical Impression(s) from Imaging Studies Abdomen/Pelvis CT 10/06/17 21:45 IMPRESSION: Non obstructive 1 to 2 mm right renal parenchymal stones. Electronically Signed: José Antonio Ross MD at 23:02 EST , Service support , KUB X-Ray 10/07/17 00:53 IMPRESSION: Nonobstructive bowel gas pattern Electronically Signed: Keegan Knowles MD at 2:01 EST Tel , Service support , Assessment/Plan This is 47 years old female patient presented to the emergency room because of nausea, vomiting, abdominal distention and abdominal pain in context of history of idiopathic gastroparesis status post gastric pacemaker and she is being admitted for intractable nausea and vomiting as well as intractable abdominal pain without improvement with multiple doses of IV morphine and IV hydromorphone in the emergency room. #1 intractable abdominal pain/intractable nausea and vomiting: Attributed to gastroparesis. CT scan abdomen revealed nonobstructive right parenchymal kidney stone which is likely not causing any symptoms. X-ray abdomen showed no evidence of bowel obstruction. Her vital signs are stable. Routine blood work is remarkable for hemoconcentration, otherwise normal. LFT and lipase were normal. Plan: Admit to MedSurg floor, keep on n.p.o., continue NG tube with low suction, IV fluids, IV hydromorphone as needed for pain, IV Zofran and Phenergan as needed, replace electrolytes as appropriate, repeat x-ray abdomen tomorrow morning, repeat CBC and BMP tomorrow morning. We may consider general surgery consult if conservative treatment failed. #2 dehydration: Secondary to intractable nausea and vomiting. It is indicated by elevated hemoglobin/hemoconcentration. BUN and creatinine are normal. Plan: IV fluids as above, IV antiemetics, BMP tomorrow morning. #3 idiopathic gastroparesis: Status post gastric pacemaker. According to the patient, the pacemaker is set up to the maximum settings. Her surgeon was contacted by the ER physician eloy and recommended conservative treatment at this point without need for surgical intervention. #4 seizure disorder: Continue Keppra. #5 depression/PTSD: She is not on any medication at this point. #6 history of stroke: Without residual deficit. She is only on aspirin. #7 history of brain aneurysm, status post clamping/coiling. Stable, no acute issues. #8 history of paroxysmal A. fib: She is in normal sinus rhythm on telemetry in the ER. Heart rate stable. #9 DVT prophylaxis: Low risk patient, no prophylaxis indicated. This note was generated with [employer] dictation software. It may contain incorrect words, spelling, and punctuation that were not noted in checking the note before signing. Code Visit Inpatient E AND M: 06562 Init Hosp L3 10/07/17 0215 <Electronically signed by Jarett Bennett MD> Date Jarett Bennett MD Cosigner Signature: Date (if applicable) CC: AMANDEEP LOREDO; Jarett Bennett Signed EMERGENCY DEPARTMENT Observed: 10/07/2017 Status: F Source: CORFU SUMMARY 1:42 AM [facility] REPOSITORY [facility] Medical Records Department [address] [place] [address] Emergency Department Summary 10/07/17 0044 MR#: [id number] Acct: [id number] Name: ORTIZ MASON Rep #: [id number] : 1970 47 From: Maya Monroy MD PCP: AMANDEEP LOREDO Status: REG ER ADDENDUM by Manav eVlez MD on 10/07/17 at 0142 Signed out to me by Dr. Monroy. Patient continued to have intractable vomiting. An NG tube was placed. KUB confirms this to be in place. She only had about 100 cc out. I was called back by the transfer line. Dr. Sy who is covering for the patient's surgeon use the patient stating that she could follow-up as an outpatient in regards to her gastric pacemaker. However the patient continues to complain of intractable nausea and does not feel she can go home. She was discussed with the hospitalist here for symptomatic control. Date Manav Velez MD cc: AMANDEEP TJ * Signed - ER Visit Summary Date of Service: 10/07/17 Chief Complaint: Abdominal pain and bloating History of Present Illness: The patient is a 47 F who reports feeling like food gets caught in her throat over the past 3 days or so. Patient states she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
== END 2018-09-08 15:40 | disposition home or self-care (01) ==
PROVIDERS: Emergency Provider Emergency Medicine; Family Provider Family Medicine; PCP Family Medicine
DX: R51 Headache (principal); G89.29 Other chronic pain; Z86.73 Personal history of transient ischemic attack (TIA), and cerebral infarction without residual deficits; Z79.82 Long term (current) use of aspirin; Z79.899 Other long term (current) drug therapy; Z72.0 Tobacco use
CPT/HCPCS: 70450; 96361; 96374; 96375; 99285; J7030; A4216

== ENCOUNTER 2018-09-15 19:00 | Emergency (ER) | payer MEDICARE, SELFPAY ==
[2018-09-15 19:02] VITALS: BP 136/80; PULSE 91; RESP 16; TEMP 36.6; O2SAT 96; BMI 28.1
[2018-09-15] MEDS: Naproxen 500 MG Tablet PO (19:37)
--- NOTE | 2018-09-15 20:00 | RAD_ITS ---
STUDY: X-RAY - LUMBAR SPINE REASON FOR EXAM: Female, 48 years old. Fall today. TECHNIQUE: 3 view(s) of the lumbar spine were obtained. COMPARISON: February 26, 2018 FINDINGS: There are bilateral pedicle screws associated with posterior spinal rods at L4, L5 and S1. There is no significant interval change since the prior examination. The alignment appears grossly anatomic. There is a stimulator in place. There are surgical clips within the right upper quadrant consistent prior cholecystectomy. Normal lumbar lordosis. There is no substantial scoliosis. There is a normal alignment of the vertebrae. RAD/Lumbar Spine 2 or 3 Views IMPRESSION: No acute osseous injury. Electronically Signed: Nellie Mares MD at 20:33 EST Tel , Service support ,
--- NOTE | 2018-09-15 20:00 | RAD_ITS ---
STUDY: X-RAY - RIGHT KNEE REASON FOR EXAM: Female, 48 years old. Right knee pain. Fall today. TECHNIQUE: For view(s) of the knee. COMPARISON: None. FINDINGS: Normal visualized distal femur. Normal visualized proximal tibia and fibula. Normal proximal tibiofibular articulation. Normal medial femorotibial compartment. Normal lateral femorotibial compartment. Normal patellofemoral articulation. The soft tissue structures are unremarkable. RAD/Knee 4 or More Views IMPRESSION: Within normal limits x-ray examination of the knee. Electronically Signed: Nellie Mares MD at 20:33 EST Tel , Service support ,
[2018-09-15] MEDS: oxyCODONE 5 MG Tablet 10 MG PO (20:50)
--- NOTE | 2018-09-15 20:59 | ED.VISSUMM ---
- ER Visit Summary Date of Service: 09/15/18 Chief Complaint: Fall History of Present Illness: The patient is a 48 F presenting for evaluation after a fall. Patient reports that she fell on some ice just prior to arrival. She reports that she fell directly onto her right knee, and then fell onto her left buttock. She is reporting a significant amount of pain and in her right knee. Pain is worse with ambulation and movement. She denies any numbness or weakness. She denies hitting her head. Patient does state that she has a history of lumbar spine surgery and past. Review of systems otherwise negative. Physical Examination: Primary survey: Airway is patent, breath sounds equal bilateral, central peripheral pulses 2+ and symmetric, GCS 15 out of 15. Vitals within normal limits. Secondary survey: General: Well-nourished well-developed no acute distress Head: Normocephalic atraumatic Eyes: PERRLA, EOMI ENT: Atraumatic Neck: Nontender full range of motion, no step-offs noted Heart: Regular rate and rhythm no murmurs Lungs: Respirations nondistressed, lung sounds clear to auscultation bilaterally, chest nontender, normal chest excursion bilaterally Abdomen: Soft nontender nondistended normal bowel sounds no palpable abdominal masses Back: Tender to the left of midline in the lumbar spine region Extremities: Examination of the patient's right lower extremity shows mild effusion of the knee. There is tenderness to palpation posteriorly, no evidence of deformity. No crepitus with range of motion. Patient had a significant amount of pain, so I was not able to stress the knee ligaments. Skin: Normal color no trauma Neuro: Alert and oriented ?4, GCS 15 out of 15, no lateralizing neurological deficits. Test Results: Knee x-ray and lumbar x-rays are negative per my personal review and radiology Emergency Department Course and Treatment: Patient presented secondary to a fall. Pain was initially treated with Naprosyn. X-rays were found to be negative. Patient's mechanism seems like she came directly down on her knee so it would seem less likely that she has any sort of ligamentous injury. I do not believe that she requires a knee immobilizer. Patient was still having significant pain she was given oxycodone in the emergency department. Patient is on pain management, so she will take her home pain management medications and follow-up with orthopedics as needed. Disposition: Discharge Impression: 1. Lumbar strain 2. Right knee contusion This note was generated with [employer] dictation software. It may contain incorrect words, spelling, and punctuation that were not noted in review of the chart prior to signing ED Disposition - Plan for ED Patient: Disposition: Home or Assisted Living Chief Complaint: Fall Diagnosis: Lumbar strain, Knee contusion Instructions: ED Mechanical Fall Referrals: Cain Adams MD [STAFF PHYSICIAN] - 10-14 Days if not better
[2018-09-15 21:14] VITALS: PULSE 87; RESP 14; O2SAT 97
== END 2018-09-15 21:15 | disposition home or self-care (01) ==
PROVIDERS: Emergency Provider Emergency Medicine; Family Provider Family Medicine; PCP Family Medicine
DX: S39.012A Strain of muscle, fascia and tendon of lower back, initial encounter (principal); S80.01XA Contusion of right knee, initial encounter; W00.0XXA Fall on same level due to ice and snow, initial encounter; Y93.9 Activity, unspecified; Y92.9 Unspecified place or not applicable
CPT/HCPCS: 72100; 73564; 99283

== ENCOUNTER → 2018-10-14 13:34 | Outpatient (CLI) | payer MEDICARE, SELFPAY ==
[2018-09-15 19:02] VITALS: BMI 28.1
[2018-10-14 14:36] LABS: Amphetamine Urine VISTA NEGATIVE (<1000 ng/mL); Barbiturate Urine VISTA NEGATIVE (< 200 ng/mL); Benzodiazepine Urine VISTA NEGATIVE (< 200 ng/mL); Cocaine Urine VISTA NEGATIVE (< 300 ng/mL); Ecstacy Urine VISTA NEGATIVE (< 500 ng/mL); Methadone Urine VISTA NEGATIVE (< 300 ng/mL); PCP Urine VISTA NEGATIVE (< 25 ng/mL); THC Urine VISTA NEGATIVE (< 50 ng/mL); Vista UDS pH Range 6
== END ==
PROVIDERS: Family Provider Family Medicine; PCP Family Medicine; Referring Provider Anesthesiology Pain Medicine; Visit Provider Anesthesiology Pain Medicine
DX: F11.20 Opioid dependence, uncomplicated (principal)
CPT/HCPCS: 80307

== ENCOUNTER 2018-10-18 18:38 | Emergency (ER) | payer MEDICARE, SELFPAY ==
[2018-10-18 18:40] VITALS: BP 123/87; PULSE 84; RESP 17; TEMP 36.4; O2SAT 96; BMI 28.1
--- NOTE | 2018-10-18 19:00 | CT_ITS ---
STUDY: CT BRAIN WITHOUT CONTRAST REASON FOR EXAM: Female, 48 years old. Fall. Confusion. RADIATION DOSAGE (If Supplied By Facility): CTDIvol = ( 44.99 ) mGy, DLP = ( 779.24 ) mGycm TECHNIQUE: Transaxial CT imaging of the brain was performed without administration of intravenous contrast material. Individualized dose optimization techniques were used for this CT. COMPARISON: September 08, 2018. FINDINGS: Normal soft tissue structures. Normal calvarium. Normal size ventricles and extra-axial spaces for the patient's age. Normal white matter tracts of the cerebral hemispheres. Normal basal ganglia and thalami. Normal brainstem. There is a metallic artifact anterior to the brainstem suggesting aneurysm clipping. This is stable. Normal cerebellum. There is no intracranial hemorrhage. There are no findings of an acute ischemic infarction. Normal visualized paranasal sinuses. CT/Brain/Head without Contrast IMPRESSION: No acute intracranial or calvarial abnormality. There is no interval change. Electronically Signed: Sundeep Krishnan DO at 19:21 EST Tel [phone], Service support ,
[2018-10-18 19:18] VITALS: O2SAT 96
--- NOTE | 2018-10-18 19:26 | RAD_ITS ---
STUDY: X-RAY - LUMBAR SPINE REASON FOR EXAM: Female, 48 years old. Fall. Lower back pain. Left hip pain. TECHNIQUE: History view(s) of the lumbar spine were obtained. COMPARISON: September 15, 2018. FINDINGS: Normal lumbar lordosis. There is a minimal dextroscoliosis on today's study which is not present a month ago suggesting postural change rather than true curvature. There is a normal alignment of the vertebrae. Again seen is posterior fusion of L4-S1. The hardware is intact. Normal disc space heights. There is no evidence of acute fracture or loss of vertebral axial height. The soft tissue structures are unremarkable. RAD/Lumbar Spine 2 or 3 Views IMPRESSION: No acute abnormality or interval change. Electronically Signed: Sundeep Krishnan DO at 20:31 EST Tel [phone], Service support ,
--- NOTE | 2018-10-18 19:26 | RAD_ITS ---
STUDY: X-RAY - CERVICAL SPINE REASON FOR EXAM: Female, 48 years old. Fall. Left-sided neck pain. TECHNIQUE: 4 view(s) of the cervical spine were obtained. COMPARISON: CT of the cervical spine, January 16, 2015. FINDINGS: There are degenerative changes of the anterior atlantoaxial articulation. Normal odontoid process. There is reversal of the normal cervical lordosis. There is multi-level endplate spondylosis. There is multi-level degenerative disc disease with multilevel disc space narrowing. There is no evidence of acute fracture or loss of vertebral axial height. There is maintenance of normal alignment. Again seen is anterior fusion C6-7. The plate and screws are intact. The soft tissue structures are unremarkable. RAD/Cerv Spine 2 or 3 Views IMPRESSION: Reversal of cervical lordosis with degenerative and surgical changes of the cervical spine. There is no major interval change when compared with CT of January 16, 2015 Electronically Signed: Sundeep Krishnan DO at 20:33 EST Tel [phone], Service support ,
[2018-10-18] MEDS: HYDROmorphone 1 MG/ML Syringe IV (19:28)
[2018-10-18 19:35] VITALS: BP 135/102; PULSE 80; RESP 12; O2SAT 95
--- NOTE | 2018-10-18 19:55 | RAD_ITS ---
STUDY: X-RAY - PELVIS AND LEFT HIP REASON FOR EXAM: Female, 48 years old. Wall. Left hip pain. Patient states he keeps popping out of place. TECHNIQUE: 4 views of the pelvis and hip. COMPARISON: None. FINDINGS: There is a non-specific bowel gas pattern. Normal visualized soft tissue structures. There is posterior fusion of L4-S1. Normal bilateral iliac wings, sacroiliac joints and visualized sacrum. Normal bilateral superior and inferior pubic rami. Normal pubic symphysis. Normal bilateral ischial tuberosities. Normal visualized left femoral head. Normal left acetabulum. There is mild articular joint space narrowing of the lateral hip. RAD/HIP, UNI W/ Pelvis 2-3 Views IMPRESSION: Mild degenerative changes left hip without fracture or dislocation. Electronically Signed: Sundeep Krishnan DO at 20:34 EST Tel [phone], Service support ,
--- NOTE | 2018-10-18 20:47 | ED.VISSUMM ---
- ER Visit Summary Date of Service: 10/18/18 Chief Complaint: Fall History of Present Illness: The patient is a [address] Oliveros and Dr. Robledo. She reports that she slipped on ice in her driveway and fell onto her buttocks. She then fell backward and hit her head. She had a loss of consciousness for a few seconds. She is not on a blood thinner. She reports she has a headache is 10 out of 10 severity. She has neck pain is 10 out of 10 severity. She reports that she has back pain is 10 out of 10 severity. And left hip pain that is 10 and had in severity. She denies any shoulder, wrist, or right hip pain. Physical Examination: Vitals: Stable. Afebrile. Neck: No vertebral tenderness. Full ROM without difficulty. Moderate tenderness palpation over the left trapezius muscle. Back: Moderate diffuse turn palpation over entire lumbar spine.. General: A&O x 3. NAD. Cardiovascular exam: Regular rate and rhythm, no murmur, rub or gallop. Respiratory exam: Chest nontender. No crepitus. Clear to auscultation bilaterally. No wheezes or stridor. Abdominal exam: Soft, nontender, nondistended, normal bowel sounds. No pain in RUQ or LUQ specifically. No peritoneal signs. Extremity: Severe tenderness palpation over the greater trochanter. There is soft tissue swelling contusion present here. She is neurovascular intact distal this. Test Results: C-spine x-rays show hardware to be intact. She has degenerative changes and no acute disease. Left hip/pelvis x-ray showed no acute disease. L-spine x-rays show hardware intact and no acute disease. CT brain shows no intracranial hemorrhage or acute disease. Emergency Department Course and Treatment: Patient was treated with Dilaudid IV and Toradol IV. She is resting comfortably Treatment Plan: Patient be discharged instructed to continue her Percocet as previously prescribed. Follow-up with her primary care physician 1 week if not improving. Return to the emergency department for any worsening symptoms. Disposition: To home in improved and stable condition. Impression: 1. Fall. 2. Concussion. 3. Left hip contusion. 4. Cervical strain. 5. Lumbar strain. This note was generated with [employer] software. It may contain incorrect words, spelling, and punctuation that were not noted in review of the chart prior to signing ED Disposition - Plan for ED Patient: Disposition: Home or Assisted Living Instructions: ED Concussion, ED Contusion Hip Referrals: Amandeep Loredo [Primary Care Provider] - 1 Week if not improving
[2018-10-18] MEDS: Ketorolac 30 MG/ML Syringe IV (20:48)
[2018-10-18] MEDS: Ondansetron 4 MG/2 ML Vial IV (20:48)
[2018-10-18 20:51] VITALS: BP 110/81; PULSE 75; RESP 13; O2SAT 94
[2018-10-18 21:18] VITALS: BP 117/78; PULSE 76; PULSE 84; RESP 24; O2SAT 93
== END 2018-10-18 21:20 | disposition home or self-care (01) ==
PROVIDERS: Emergency Provider Emergency Medicine; Family Provider Family Medicine; PCP Family Medicine
DX: S06.0X1A Concussion with loss of consciousness of 30 minutes or less, initial encounter (principal); S16.1XXA Strain of muscle, fascia and tendon at neck level, initial encounter; S39.012A Strain of muscle, fascia and tendon of lower back, initial encounter; S70.02XA Contusion of left hip, initial encounter; W00.0XXA Fall on same level due to ice and snow, initial encounter; Y93.9 Activity, unspecified; Y92.008 Other place in unspecified non-institutional (private) residence as the place of occurrence of the external cause; Z79.82 Long term (current) use of aspirin; Z79.899 Other long term (current) drug therapy; Z86.73 Personal history of transient ischemic attack (TIA), and cerebral infarction without residual deficits
CPT/HCPCS: 70450; 72040; 72100; 73502; 96374; 96375; 99282; J2405

== ENCOUNTER 2018-10-26 19:58 | Emergency (ER) | payer MEDICARE, SELFPAY ==
[2018-10-26 19:59] VITALS: BP 139/98; PULSE 95; RESP 18; TEMP 36.4; O2SAT 96; BMI 29.9
[2018-10-26] MEDS: Morphine 4 MG/ML Syringe IV ×2 (21:33→22:56)
[2018-10-26] MEDS: Ondansetron ODT 4 MG Tablet PO (21:34)
[2018-10-26] MEDS: Clindamycin HCl 150 MG Capsule 300 MG PO (21:34)
[2018-10-26 22:01] VITALS: BP 141/89; PULSE 88; RESP 18; TEMP 36.5; O2SAT 96
--- NOTE | 2018-10-26 22:38 | ED.VISSUMM ---
- ER Visit Summary Date of Service: 10/26/18 Chief Complaint: Abscess History of Present Illness: The patient is a 48 F presenting with abscess left inner thigh. She just noticed this today. She complains of pain. She denies drainage. She has not had these symptoms in the past. Denies fever. Denies other complaints. Physical Examination: Vitals are stable. Patient is afebrile. Alert no acute distress. HEENT exam is unremarkable. Neck is supple. Lungs are clear and equal bilaterally. Heart is regular rate and rhythm. Abdomen is soft nontender nondistended. : external exam normal Extremities left upper inner thigh 2 cm indurated abscess with no surrounding erythema Skin is warm and dry. Remainder of exam is unremarkable. Emergency Department Course and Treatment: Patient was given morphine, Zofran IV. She was given clindamycin p.o. I&D was performed. Anesthetized with lidocaine. Incised with 11 blade. Probed to break up loculations. Small amount of pus was drained. Irrigated with saline. Patient tolerated this well. She is given prescription for clindamycin. She is in pain management is advised to take her pain medicines as directed by pain management. She is advised to follow-up with her primary care physician. Advised return to ED if worsening complaints. Disposition: Discharge home Impression: Left inner thigh abscess, I&D This note was generated with [employer] dictation software. It may contain incorrect words, spelling, and punctuation that were not noted in review of the chart prior to signing ED Disposition - Plan for ED Patient: Referrals: Amandeep Loredo [Primary Care Provider] -
--- NOTE | 2018-10-26 22:46 | ED.DEP ---
ED Disposition - Plan for ED Patient: Instructions: ED Abscess IandD Prescriptions: Clindamycin [Cleocin] 300 mg PO 4X/DAY #80 capsule Referrals: Amandeep Loredo [Primary Care Provider] -
[2018-10-26 23:00] VITALS: BP 170/97; PULSE 88; RESP 16; O2SAT 98
== END 2018-10-26 23:05 | disposition home or self-care (01) ==
PROVIDERS: Emergency Provider Emergency Medicine; Family Provider Family Medicine; PCP Family Medicine
DX: L02.416 Cutaneous abscess of left lower limb (principal); I48.91 Unspecified atrial fibrillation; G40.909 Epilepsy, unspecified, not intractable, without status epilepticus; K21.9 Gastro-esophageal reflux disease without esophagitis; Z79.82 Long term (current) use of aspirin; Z79.899 Other long term (current) drug therapy; Z86.73 Personal history of transient ischemic attack (TIA), and cerebral infarction without residual deficits
CPT/HCPCS: 10060; 96374; 96376; 99284; A4216

== ENCOUNTER 2018-11-08 20:02 | Emergency (ER) | payer MEDICARE, SELFPAY ==
[2018-11-08 20:03] VITALS: BP 126/114; PULSE 73; RESP 18; TEMP 36.8; O2SAT 97; BMI 26.6
--- NOTE | 2018-11-08 20:40 | CT_ITS ---
HISTORY: LOW BACK PAIN RADIATING DOWN LT LEG POST-FALLHX:CVA,GASTROPARESIS,RENAL AND SKIN CANCER,ASTHMA,KIDNEY STONES WITH STENTSSURGERY:APPENDECTOMY,CHOLECYSTECTOMY,GASTRIC PACER,CERVICAL AND LUMBAR FUSIONS TECHNIQUE: Helically acquired images were obtained of the lumbar spine. 2D reformats were reviewed. A radiation dose optimization technique was used for this scan. IV Contrast dosage and agent: None. COMPARISON: 02/05/18 CT lumbar spine. FINDINGS: No acute fracture or osseous destruction. Sagittal alignment anatomic. L5-S1 laminectomy and posterior fusion L4, L5, and S1 with bilateral pedicle screws joined by spinal rods at these levels, unchanged. No evidence of hardware loosening or hardware fracture. Transitional lumbosacral anatomy with partial sacralization of L5; pseudoarticulation of the right greater than left transverse processes with S1. No acute or concerning finding in the paraspinal soft tissues. No apparent high-grade spinal canal or foraminal narrowing. As before vertebral body osteophytes extend into a mildly narrow the bilateral L4-[address]/Spine Lumbar without Contrast IMPRESSION: No acute findings. Postoperative and degenerative changes with transitional lumbosacral anatomy, all similar to prior. Individualized dose optimization techniques were used for this CT. at [id number] Reported and signed by: Alejandro Bryson MD Electronically Signed: Alejandro Bryson, at 21:33 EDT Tel , Service support ,
[2018-11-08] MEDS: HYDROmorphone 1 MG/ML Syringe IV ×2 (20:55→22:53)
[2018-11-08] MEDS: Ondansetron 4 MG/2 ML Vial IV (20:55)
[2018-11-08] MEDS: 0.9% Normal Saline 1,000 ML 150 ML IV (20:55)
[2018-11-08 21:10] LABS: Absolute Lymphocyte Count 3.49 X10^3/ul (0.83-4.51); Absolute Neutrophil Count 3.8 X10^3/uL (2.0-7.7); Basophil# 0.05 X10^3/uL; Basophil% 0.6 % (0-1); Differential Indicated SCAN CRITERIA MET; Eosinophil# 0.12 X10^3/uL; Eosinophils% 1.5 % (0-5); Hematocrit 42.7 % (37-47); Lymphocyte # 3.49 X10^3/ul (4.0); Lymphocyte % 43.6 % (19-41); Mean Corp Hgb Conc 32.8 g/gl (32-36); Mean Corpuscular Hgb 31.5 pg (27.0-32.0); Mean Corpuscular Volume 96.2 fL (81-99); Mean Platelet Vol. 10.1 fl (6.2-12.0); Monocyte# 0.57 X10^3/uL; Monocyte% 7.1 % (0-10); Neutrophil # 3.76 X10^3/uL (2.7-7.7); Neutrophil % 47.1 % (47-70); POSITIVE COUNT NO; POSITIVE DIFFERENTIAL NO; POSITIVE MORPHOLOGY YES; Platelet Count 278 K/mm3 (150-450); RBC Distribution Width CV 12.8 % (11.6-14.6); RBC Distribution Width SD 44.1 fl (35.1-43.9); Red Blood Count 4.44 M/mm3 (4.2-5.4)
[2018-11-08 21:22] LABS: Anion Gap 3 (5-15); BUN 13 mg/dL (7-18); Calcium,Total 8.1 mg/dL (8.5-10.1); Chloride 109 mmol/L (98-107); Creatinine, Serum 0.81 mg/dL (0.55-1.02); EST Glomerular Filtration Rate 79 mL/min (>60); Est Glom Filt Rate - Afr Amer 96 mL/min (>60); Glucose 89 mg/dL (74-106); Potassium 3.7 mmol/L (3.5-5.1); Sodium Level 141 mmol/L (136-145)
[2018-11-08 22:02] LABS: Differential Comment SCANNED
[2018-11-08] MEDS: diazePAM 2 MG Tablet 4 MG PO (22:42)
--- NOTE | 2018-11-08 22:55 | ED.VISSUMM ---
- ER Visit Summary Date of Service: 11/08/18 Chief Complaint: [Back pain] History of Present Illness: The patient is a 48 F [presents the emergency department complaint of back pain that started this evening. Patient is helping to take care of her [id number] who would fallen this evening. Patient attempted to help her mother and off the floor by using some support belts and she felt a sudden pop in her low back causing her to fall to the ground. Patient was subsequently unable to stand. EMS was called. Patient has history of chronic back pain issues including several surgeries to her left lumbar spine. Patient had rods inserted and a fusion of her lumbar spine at [facility] about [address] Perez. Patient states that she cannot have MRIs due to the fact that she has had prior brain aneurysms with coiling and clipping. Patient has history of PTSD, depression, migraines, seizures, and stroke history. Patient denies loss of bowel or bladder function.] Physical Examination: [HEENT-PERRLA, EOMI. Cranial nerves II through XII grossly intact. TMs clear. Mucous membranes moist. No adenopathy. Cardiovascular-regular rate and rhythm without murmur or ectopy Lungs-clear to auscultation, chest wall stable without crepitus or subcu emphysema Abdomen-normoactive bowel sounds, soft, nontender, no rebound or rigidity, no peritoneal signs. Back exam-patient has point tenderness diffusely about the lumbar spine. Patient has a positive straight leg raise at about 30 degrees with the left leg. Patient has a weak L5 extension on the left. Patient has normal sensation to light touch. Deep tendon reflexes are plus 2 out of 4 bilaterally at the patella and Achilles. Extremities-intact ?4, normal range of motion, normal pulses, atraumatic] Test Results: [CBC with differential was normal. Chemistries were normal. CT scan of lumbar spine was obtained which was compared with CT scan of lumbar spine from about 8 months ago and it was unchanged. There is no evidence of trauma. No evidence in shifting of the hardware.] Emergency Department Course and Treatment: [Patient was medicated with Dilaudid and Zofran. Patient continues to complain of pain and spasm in her back and was given Valium and another dose of Dilaudid. Patient continues to complain of pain. I recommend admission for pain control and we had a discussion about possibly transferring her to [facility] due to the fact that we did not do not have neurosurgery available here and I was concerned about possible radiculopathy. Patient initially stated that she wanted to remain here and just have her pain managed however after she was seen by the hospitalist it was recommended by the hospitalist that we transfer patient to [facility] as well and patient is agreeable with this at this time. I discussed case with [facility] who placed patient on a waiting list and they believe that they would be able to get her transferred within next couple of hours.] Treatment Plan: [Transfer to [facility]] Disposition: [Transfer] Impression: [Lumbar radiculopathy Intractable back pain] This note was generated with [employer] dictation software. It may contain incorrect words, spelling, and punctuation that were not noted in review of the chart prior to signing ED Disposition - Plan for ED Patient: Referrals: Amandeep Loredo [Primary Care Provider] -
[2018-11-08 22:58] VITALS: BP 131/82; PULSE 88; RESP 18; O2SAT 95
--- NOTE | 2018-11-08 23:00 | ED.DCSUM_ITS ---
- ER Visit Summary Date of Service: 11/08/18 Chief Complaint: [Back pain] History of Present Illness: The patient is a 48 F [presents the emergency department complaint of back pain that started this evening. Patient is helping to take care of her [id number] who would fallen this evening. Patient attem pted to help her mother and off the floor by using some support belts and she felt a sudden pop in her low back causing her to fall to the ground. Patient was subsequently unable to stand. EMS was called. Patient has history of chronic back pain issues including several surgeries to her left lumbar spine. Patient had rods inserted and a fusion of her lumbar spine at [facility] about [address] Perez. Patient states that she cannot have MRIs due to the fact that she has had prior brain aneurysms with coiling and clipping. Patient has history of PTSD, depression, migraines, seizures, and stroke history. Patient denies loss of bowel or bladder function.] Physical Examination: [HEENT-PERRLA, EOMI. Cranial nerves II through XII grossly intact. TMs clear. Mucous membranes moist. No adenopathy. Cardiovascular-regular rate and rhythm without murmur or ectopy Lungs-clear to auscultation, chest wall stable without crepitus or subcu emphysema Abdomen-normoactive bowel sounds, soft, nontender, no rebound or rigidity, no peritoneal signs. Back exam-patient has point tenderness diffusely about the lumbar spine. Patient has a positive straight leg raise at about 30 degrees with the left leg. Patient has a weak L5 extension on the left. Patient has normal sensation to light touch. Deep tendon reflexes are plus 2 out of 4 bilaterally at the patell a and Achilles. Extremities-intact ?4, normal range of motion, normal pulses, atraumatic] Test Results: [CBC with differential was normal. Chemistries were normal. CT scan of lumbar spine was obtained which was compared with CT scan of lumbar spine from about 8 months ago and it was unchanged. There is no evidence of trauma. No evidence in shifting of the hardware.] Emergency Department Course and Treatment: [Patient was medicated with Dilaudid and Zofran. Patient continues to complain of pain and spasm in her back and was given Valium and another dose of Dilaudid. Patient continues to complain of pain. I recommend admission for pain control and we had a discussion about possibly transferring her to [facility] due to the fact that we did not do not have neurosurgery available here and I was concerned about possible radiculopathy. Patient initially stated that she wanted to remain here and just have her pain managed however after she was seen by the hospitalist it was recommended by the hospitalist that we transfer patient to [facility] as well and patient is agreeable with this at this time. I discussed case with [facility] who placed patient on a waiting list and they believe that they would be able to get her transferred within next couple of hours.] Treatment Plan: [Transfer to [facility]] Disposition: [Transfer] Impression: [Lumbar radiculopathy Intractable back pain] This note was generated with [employer] dictation software. It may contain incorrect words, spelling, and punctuation that were not noted in review of the chart prior to signing ED Disposition - Plan for ED Patient: Referrals: Amandeep Loredo [Primary Care Provider] -
[2018-11-09] MEDS: Gabapentin 600 MG Tablet PO (00:27)
[2018-11-09] MEDS: levETIRAcetam 1,000 MG Tablet 1000 MG PO (00:27)
[2018-11-09 00:57] VITALS: BP 114/57; PULSE 80; RESP 18; O2SAT 97
[2018-11-09] MEDS: oxyCODONE 5 MG Tablet 10 MG PO (01:09)
--- NOTE | 2018-11-09 02:24 | ED.RN ---
CALLED [facility] TO CHECK THE STATUS OF TRANSFER, PER [facility]AL IN THE TRANSFER CENTER, THEY ARE READY TO ACCEPT THIS PT TO THEIR ER
--- NOTE | 2018-11-09 02:37 | ED.RN ---
PER [facility], NO REPORTED NEEDED, REPORT GIVEN BY DR DOWNEY.
[2018-11-09 02:49] VITALS: BP 102/42; PULSE 76; RESP 18; O2SAT 98
== END 2018-11-09 03:37 | disposition short-term general hospital (02) ==
PROVIDERS: Emergency Provider Emergency Medicine; Family Provider Family Medicine; PCP Family Medicine
DX: M54.16 Radiculopathy, lumbar region (principal); I48.0 Paroxysmal atrial fibrillation; G43.909 Migraine, unspecified, not intractable, without status migrainosus; G40.909 Epilepsy, unspecified, not intractable, without status epilepticus; Z79.82 Long term (current) use of aspirin; Z79.899 Other long term (current) drug therapy; Z86.73 Personal history of transient ischemic attack (TIA), and cerebral infarction without residual deficits; Z72.0 Tobacco use
CPT/HCPCS: 72131; 80048; 85025; 96361; 96374; 96375; 96376; 99285; J7030; A4216; J2405

== ENCOUNTER 2018-11-14 11:24 | Emergency (ER) | payer MEDICARE, SELFPAY ==
[2018-11-14 11:25] VITALS: BP 125/96; PULSE 120; RESP 18; TEMP 36.3; O2SAT 95; BMI 26.6
--- NOTE | 2018-11-14 11:47 | ED.VIS.GEN ---
History of Present Illness Chief Complaint: Back Informant: Patient Onset: Yesterday - significantly worse overnight Context: Gradual Onset Timing: Continuous Quality: pain Location: low back, worst on left Current Severity: Severe Maximum Severity: Severe Associated Symptoms: LLE pain/weakness/numbness-tingling. incontinent of stool this AM. Narrative: Patient states she had back surgery remotely, she recently had a fall, and was transferred to [facility] where they found newly significantly herniated disks pushing on nerves in the lower lumbar and upper sacral region to the left, causing pain radiating down her left leg. She is planning on seeing a surgeon as an outpatient 2 days from now. She states that overnight everything got significantly worse and now she is unable to physically walk, cannot tell if it is because of weakness in the left leg or because of pain, but it certainly does cause a significant increase in pain and trying to do so. She states she has been incontinent of stool since 3 AM, approximately 7-8 hours, that is new. She also states when she needs to urinate she is trying to go but is unable and feels like she may be retaining. She feels like her bladder is full right now. She denies any saddle anesthesia. Tingling in her left foot is unchanged. 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 Status: Chronic (4) Depression Status: Chronic (5) History of lumbar fusion Status: Chronic (6) Migraine Status: Chronic (7) Nondiabetic gastroparesis Status: Chronic (8) PTSD (post-traumatic stress disorder) Status: Chronic (9) Seizure disorder Status: Chronic (10) Weakness of left leg Status: Chronic Past Medical History - Allergies and Home Meds Allergies/Adverse Reactions: Allergies Penicillins Allergy (Verified 11/14/18 11:27) Anaphylaxis propoxyphene napsylate [From Darvocet-N 100] Allergy (Verified 11/14/18 11:27) Rash hydrocodone bitartrate [From Vicodin] Adverse Reaction (Verified 11/14/18 11:27) Itching latex Adverse Reaction (Verified 11/14/18 11:27) blistering of skin venom-honey bee [bee venom (honey bee)] Adverse Reaction (Verified 11/14/18 11:27) Chest tightness PLASTIC TAPE Allergy (Uncoded 11/14/18 11:27) blistering IV contrast Adverse Reaction (Uncoded 11/14/18 11:27) Vomiting Primary Care Physician: Amanedep Loredo [Primary Care Provider] - Surgical History: appendectomy, cholecystectomy, hysterectomy, - - Multiple abdominal surgeries, including for kidney tumor, hysterectomy, cholecystectomy, endometriosis, brain aneursyms clamped and coiled, gastric pacemaker placement. Lives: Spouse/ Significant Other Smoking Status: Current every day smoker - Family History Maternal Family History: Reports: Unknown Paternal Family History: Reports: No pertinent history Review of Systems General: Denies: Chills, Fever, Sweats Eyes: Denies: Visual changes - bilaterally, Diplopia ENT: Denies: Rhinorrhea, Sore throat Cardiovascular: Denies: Chest pain, Palpitations Respiratory: Denies: Dyspnea, Cough, Dyspnea on exertion Gastrointestinal: Reports: Diarrhea - loose. this AM only., Constipation - usually. Denies: Abdominal pain, Nausea, Vomiting, Melena, Hematochezia Genitourinary: Reports: - - urinary retention sx. incontinent of stool.. Denies: Dysuria, Hematuria Musculoskeletal: Reports: Back pain, Extremity Pain. Denies: Neck pain Skin: Denies: Rash, Wounds Neurological: Reports: Weakness, Parasthesia, Numbness. Denies: Headache Psych: Reports: Anxiety. Denies: Suicidal thoughts Physical Exam Vital Signs/Narrative: Vital Signs Temp Pulse Resp BP Pulse Ox 11/14/18 11:25 97.4 F L 120 H 18 125/96 H 95 Inital Vital Signs reviewed: Yes General: Well nourished, Well developed, Acute Distress - painful Head: Normocephalic, Atraumatic Eyes: Perrl, EOMI ENT: Moist mucous membranes, No rhinorrhea Neck: Supple, Nontender Cardiovascular: Regular rate, Regular rhythm, No murmurs Respiratory: No distress, CTA bilaterally, Chest nontender Abdomen: Soft, Nondistended, Normal bowel sounds, Tender - mild suprapubic only. Negative for: Guarding, Rebound tenderness Rectal: Nontender, - - Good, normal tone. Insensate according to patient during NICOLE. Back: Normal Inspection, - - diffuse lumbosacral tenderness to palp. nml inspection, no rash. well-healed surgical scar.. Negative for: CVA tenderness Extremities: Nontender, No edema, - - pos ipsilat LLE SLR only. neg on right, and causes no contralat sx.. Negative for: Calf Tenderness Skin: Normal color, No rash Neurological: Alert, Oriented x3, Cranial nerves II-XII grossly intact, Normal Strength - within limits of exam LLE - strength seems normal when using various muscle groups against resistance, but some limitation due to pain w/ performing maneuvers. , Normal DTR - no clonus. downgoing toes., Parasthesia - left foot Psychological: Normal Mood, - - anxious Diagnostic/Tx/Re-eval Laboratory Tests 11/14/18 Range/Units 12:20 Urine Color Straw (Yellow) Urine Clarity Clear (Clear) Urine pH 7.0 (5.0 - 8.0) Ur Specific [place] 1.010 (1.002-1.030) Urine Protein Negative (Negative) mg/dl Urine Glucose (UA) Normal (Normal) mg/dl Urine Ketones Negative (Negative) mg/dl Urine Occult Blood 25 H (Negative) /ul Urine Nitrite Negative (Negative) Urine Bilirubin Negative (Negative) mg/dL Urine Urobilinogen Normal (Normal) mg/dl Ur Leukocyte Esterase Negative (Negative) /ul Urine RBC 0-5 SEEN (0-5) /hpf Urine WBC 0 SEEN (0-5) /hpf Ur Squamous Epith Cells 0-5 SEEN (5-10) /hpf Urine Bacteria 0 SEEN (None Seen) /hpf Urine Mucus 0 SEEN (<or=2+) /hpf - Medical Decision Making Post void residual by bladder scan is almost 70 cc. She developed numbness in her perineum gradually during her ER stay, just prior to the rectal exam which was done later than the rest of the physical. It is Thursday and we do not have MRI emergently available at this time. Regardless I think transfer back to [facility] is the most appropriate disposition for her, given that she is having spinal cord compression symptoms at this time and we do not have any back or neuro surgeons at this hospital that would take care of this problem. Patient is amenable to that plan. She is given morphine for pain control. Discussed with [facility] transfer center, accepted to the emergency department for further evaluation by Dr. Jackson. ED Disposition - Plan for ED Patient: Disposition: [facility] Diagnosis: Intractable low back pain, Cauda equina syndrome Referrals: Amandeep Loredo [Primary Care Provider] -
[2018-11-14] MEDS: morphine 10 MG/ML Syringe IV (12:24)
[2018-11-14] MEDS: Ondansetron 4 MG/2 ML Vial IV ×2 (12:24→15:51)
[2018-11-14 12:30] LABS: Bacteria 0 SEEN /hpf (None Seen); Mucous, Urine 0 SEEN /hpf (<or=2+); White Blood Cells 0 SEEN /hpf (0-5)
[2018-11-14 12:32] LABS: Color, Urine Straw (Yellow); Glucose, Dipstick Normal (Normal); Ketone-Dipstick Negative (Negative); Leukocyte Esterase-Dipstick Negative /ul (Negative); Nitrite-Dipstick Negative (Negative); Occult Blood-Urine 25 /ul (Negative); Protein-Dipstick Negative (Negative); Urine Bilirubin Dipstick Negative (Negative); Urine Clarity Clear (Clear); Urine Urobilinogen Normal (Normal)
[2018-11-14 12:38] LABS: Red Blood Cells-Urine 0-5 SEEN /hpf (0-5); Squamous Epithelial Cells - UA 0-5 SEEN /hpf (5-10)
--- NOTE | 2018-11-14 13:20 | PCA ---
CALLED [facility] FOR DR MARTINEZ AT 1:18
[2018-11-14] MEDS: Morphine 4 MG/ML Syringe IV ×2 (13:54→15:51)
[2018-11-14 14:06] VITALS: BP 127/91; PULSE 99; RESP 17; O2SAT 96
[2018-11-14 15:59] VITALS: BP 133/86; PULSE 104; RESP 16; O2SAT 97
--- NOTE | 2018-11-14 16:00 | ED.RN ---
[facility] CALLED [facility]SFER CENTER TO GET NUMBER TO CALL REPORT. TRANSFER CENTER STATES IT LOOKS LIKE YOU DON'T NEED TO CALL REPORT SINCE THEY ARE GOING TO THE ER, THAT'S WHAT OUR SYSTEM SHOWS UPON FINAL ASSESSMENT PT UNABLE TO FEEL LEFT LOWER EXTREMITY. FEELS PRESSURE ON RIGHT LOWER EXTREMITY.
[2018-11-14 16:14] LABS: Absolute Lymphocyte Count 3.34 X10^3/ul (0.83-4.51); Basophil# 0.01 X10^3/uL; Basophil% 0.1 % (0-1); Eosinophil# 0.14 X10^3/uL; Eosinophils% 1.4 % (0-5); Hematocrit 50.6 % (37-47); Hemoglobin 17.3 g/dl (12.0-15.0); Lymphocyte # 3.34 X10^3/ul (4.0); Lymphocyte % 32.6 % (19-41); Mean Corp Hgb Conc 34.2 g/gl (32-36); Mean Corpuscular Volume 93.5 fL (81-99); Mean Platelet Vol. 10.4 fl (6.2-12.0); Monocyte# 0.67 X10^3/uL; Monocyte% 6.5 % (0-10); Neutrophil # 6.03 X10^3/uL (2.7-7.7); POSITIVE COUNT NO; POSITIVE DIFFERENTIAL NO; POSITIVE MORPHOLOGY NO; Platelet Count 317 K/mm3 (150-450); RBC Distribution Width SD 43.9 fl (35.1-43.9); Red Blood Count 5.41 M/mm3 (4.2-5.4); White Blood Count 10.2 K/mm3 (4.4-11.0)
[2018-11-14 16:23] LABS: Anion Gap 9 (5-15); BUN 14 mg/dL (7-18); BUN/Creat Ratio 15.9 RATIO (10-20); Calcium,Total 8.8 mg/dL (8.5-10.1); Chloride 106 mmol/L (98-107); Creatinine, Serum 0.88 mg/dL (0.55-1.02); EST Glomerular Filtration Rate 72 mL/min (>60); Est Glom Filt Rate - Afr Amer 88 mL/min (>60); Estimated Creatinine Clearance 78.01 ml/min; Glucose 76 mg/dL (74-106); Potassium 3.1 mmol/L (3.5-5.1); Sodium Level 141 mmol/L (136-145)
== END 2018-11-14 16:00 | disposition short-term general hospital (02) ==
PROVIDERS: Emergency Provider Emergency Medicine; Family Provider Family Medicine; PCP Family Medicine
DX: M51.06 Intervertebral disc disorders with myelopathy, lumbar region (principal); K59.8 Other specified functional intestinal disorders; R20.2 Paresthesia of skin; G83.4 Cauda equina syndrome; K31.84 Gastroparesis; I48.0 Paroxysmal atrial fibrillation; G40.909 Epilepsy, unspecified, not intractable, without status epilepticus; F17.200 Nicotine dependence, unspecified, uncomplicated; Z98.1 Arthrodesis status; Z96.89 Presence of other specified functional implants; Z79.82 Long term (current) use of aspirin; Z79.899 Other long term (current) drug therapy; Z86.73 Personal history of transient ischemic attack (TIA), and cerebral infarction without residual deficits
CPT/HCPCS: 80048; 81001; 85025; 96374; 96375; 96376; 99283; J7030; A4216; J2405

== ENCOUNTER 2018-11-29 13:27 | Emergency (ER) | payer MEDICARE, SELFPAY ==
[2018-11-29 13:29] VITALS: BP 130/84; PULSE 97; RESP 18; TEMP 36.6; O2SAT 98; BMI 27.3
--- NOTE | 2018-11-29 13:56 | RAD_ITS ---
STUDY: X-RAY - PELVIS AND LEFT HIP REASON FOR EXAM: Female, 48 years old. Left pelvic pain and numbness. TECHNIQUE: 3 views of the pelvis and hip. COMPARISON: None. FINDINGS: There is a non-specific bowel gas pattern. Normal visualized soft tissue structures. Normal bilateral iliac wings, sacroiliac joints and visualized sacrum. Normal bilateral superior and inferior pubic rami. Normal pubic symphysis. Normal bilateral ischial tuberosities. Normal visualized femoral head. Normal acetabulum. Normal hip joint. There is evidence of prior laminectomy and fusion in the lower lumbar spine. RAD/HIP, UNI W/ Pelvis 2-3 Views IMPRESSION: Normal x-ray examination of the pelvis and hip. Electronically Signed: Luiz Neff, at 14:34 EDT , Service support ,
--- NOTE | 2018-11-29 14:40 | ED.DCSUM_ITS ---
- ER Visit Summary Date of Service: 11/29/18 Chief Complaint: Left leg numb and weak History of Present Illness: The patient is a [address] Robledo, Dr. Loerdo, Dr. Suggs, and has an appointment with Dr. Pandey tomorrow. Patient reports that she has left foot pain and numbness that began last night. States that is improved with rubbing her calf. She questions whether or not this is related to problems that she has with her back and or left hip. She describes a sharp, burning pain that is 10 out of 10 at worst and 7-10 currently is worsened with movement relieved by nothing. She has tingling in her left foot. Patient reports that she has chronic back pain that is unchanged. She reports that she saw her neurosurgeon when she was transferred down to [facility] both November 08 and November 14. She is unable to have an MRI due to a gastric pacemaker. He did a CT myelogram and stated that she needed to see Dr. Robledo for injections in her back. She got this 4 days ago and has not gotten any relief. He reportedly told her that she needs to have surgery. However, he wants her to see an orthopedic surgeon regarding her left hip. She has an appointment to see Dr. Pandey tomorrow. Patient reports that on her transfer down to [facility] on November 08 that her left hip was dislocated and that they put it back in. She has not had a hip replacement. She did not suffer trauma at that time. Physical Examination: Vitals: Stable. Afebrile. General: A&O x 3. NAD. Cardiovascular exam: Regular rate and rhythm, no murmur, rub or gallop. Respiratory exam: Clear to auscultation bilaterally. No wheezes or stridor. Abdominal exam: Soft, nontender, nondistended, normal bowel sounds. No peritoneal signs. Back: Diffuse moderate tenderness to palpation over the lumbar spine and the paraspinous musculature in the lumbar region. No point tenderness. Negative stra ight leg bilaterally. 5/5 DF, PF, EHL on the right. She has 0 out of 5 dorsiflexion, plantarflexion, and extensor hallucis longus on the left. She has decreased sensation to light touch circumferentially from the knee down on the left. This is not in an anatomic distribution. She has a 2+ patellar and Achilles tendon reflex. She has 2+ dorsalis pedis pulse bilaterally. There is no swelling or erythema. Test Results: Left hip/pelvis x-ray is normal. Emergency Department Course and Treatment: The patient is moving her left foot when she does not think that people are watching. Clinically I do not think that the patient has the extent of weakness that she is displaying on exam. She is also been seen by her neurosurgeon multiple times in the past 2 weeks. I do not think that she warrants transfer. Treatment Plan: The patient was discussed with Dr. Robledo who does not want her given further pain medications. She was also discussed with Dr. Pandey who will see her in the office tomorrow. Patient will be discharged with instructions to follow-up as previously scheduled. The signs and symptoms of cauda equina syndrome were discussed. She is instructed to return for these. Disposition: To home in stable condition. Impression: 1. Chronic back pain. 2. Chronic left hip pain. This note was generated with [employer] dictation software. It may contain incorrect words, spelling, and punctuation that were not noted in review of the chart prior to signing ED Disposition - Plan for ED Patient: Disposition: Home or Assisted Living Instructions: ED Neck Back Pain General Referrals: Dawit Pandey DO [STAFF PHYSICIAN] - Keep [facility] appointment Mandy Robledo MD [STAFF PHYSICIAN] - Keep [facility] appointment
--- NOTE | 2018-11-29 15:12 | ED.RN ---
pt required assist x1 into wc for d/c. Pt and friend refused assist to help pt into car. He drove w/c outisde of department before getting car.
== END 2018-11-29 15:16 | disposition home or self-care (01) ==
LOC: ED 14:31
PROVIDERS: Emergency Provider Emergency Medicine; Family Provider Family Medicine; PCP Family Medicine
DX: M54.5 Low back pain (principal); M25.552 Pain in left hip; G89.29 Other chronic pain; Z96.89 Presence of other specified functional implants; G40.909 Epilepsy, unspecified, not intractable, without status epilepticus; Z79.82 Long term (current) use of aspirin; Z79.899 Other long term (current) drug therapy; Z72.0 Tobacco use
CPT/HCPCS: 73502; 99282

== ENCOUNTER → 2018-12-14 11:02 | Outpatient (CLI) | payer MEDICARE, SELFPAY ==
[2018-11-29 13:29] VITALS: BMI 27.3
--- NOTE | 2018-12-14 11:07 | ART_ITS ---
Reason For Study: PVD Left Segmental Pressures Left brachial= 126mmHg. Left posterior tibial artery = 136mmHg. Left dorsalis pedis artery = 116mmHg. The left dorsalis pedis waveforms are triphasic. The left posterior tibial artery waveforms are triphasic. Right Segmental Pressures Right brachial= 118mmHg. Right posterior tibial artery = 134mmHg. Right dorsalis pedis artery = 136mmHg. The right dorsalis pedis waveforms are triphasic. The right posterior tibial artery waveforms are triphasic. Indices The right ankle brachial index by the dorsalis pedis is 1.08. The right ankle brachial index by the posterior tibial artery is 1.06. The left ankle brachial index by the dorsalis pedis is .92. The left ankle brachial index by the posterior tibial artery is 1.08. Interpretation Summary Triphasic Doppler waveforms are noted at ankle level bilaterally. Pulse-volume waveform amplitudes are satisfactory at all levels bilaterally, including low-thigh, calf, ankle, and digital levels. Resting ankle-brachial indices are normal bilaterally. There is no evidence of significant arterial occlusive disease in the lower extremities bilaterally. Ordering Physician: Dawit Pandey Performed By: ELMO HARPER Rosemary
--- NOTE | 2018-12-14 11:39 | CT_ITS ---
STUDY: CT PELVIS WITHOUT CONTRAST REASON FOR EXAM: Female, 48 years old. Left hip pain RADIATION DOSAGE (If Supplied By Facility): CTDIvol = ( 29.03 ) mGy, DLP = ( 934.99 ) mGycm TECHNIQUE: Transaxial imaging of the pelvis was performed with oral contrast, and without intravenous administration of contrast material. Individualized dose optimization techniques were used for this CT. COMPARISON: None. FINDINGS: Bilateral posterior pedicle fusions at L4, L5, and S1. Bilateral L4-5 and L5-S1 laminectomies with bone graft in place. Electronic device in the left anterior abdominal wall, incompletely imaged. Visualized bowel is intact. Colonic diverticulosis. Bladder is unremarkable. No free pelvic fluid. Degenerative sacroiliac joint changes. No acute fractures or osteolytic lesions. Hip joint spaces are intact. CT/Pelvis without IV Contrast IMPRESSION: Hip joints are intact. No acute osseous abnormality. Degenerative sacroiliac joint changes. Electronically Signed: Gigi Rothman MD at 12:56 EDT Tel , Service support ,
--- NOTE | 2018-12-14 11:39 | CT_ITS ---
STUDY: CT LUMBAR SPINE WITHOUT CONTRAST REASON FOR EXAM: Female, 48 years old. Left hip pain RADIATION DOSAGE (If Supplied By Facility): CTDIvol = ( 25.91 ) mGy, DLP = ( 655.96 ) mGycm TECHNIQUE: The patient was scanned in a multi detector CT scanner. High resolution transaxial imaging was performed. Images were obtained from L1 to L5. Sagittal and coronal images were reconstructed. Individualized dose optimization techniques were used for this CT. COMPARISON: 11/08/2018 FINDINGS: Normal lumbar lordosis. There is no substantial scoliosis. Bilateral posterior pedicle fusions at the L4, L5, and S1 levels. No CT evidence of hardware failure. L4-5 and L5-S1 laminectomies with bone graft in place. L1-2: Normal endplates. Normal disc height and morphology. Normal bilateral facet joints. Normal central canal and bilateral lateral recesses. Normal bilateral intervertebral neural foramina. L2-3: Normal endplates. Normal disc height and morphology. Normal bilateral facet joints. Normal central canal and bilateral lateral recesses. Normal bilateral intervertebral neural foramina. L3-4: Disc osteophyte complex with moderate central canal and bilateral foraminal stenoses. L4-5: Residual disc osteophyte complex with moderate left and mild right foraminal stenoses. L5-S1: Bulging annulus without compressive sequelae. Normal visualized paraspinous soft tissue structures. Degenerative sacroiliac joint changes. Arterial calcifications. CT/Spine Lumbar without Contrast IMPRESSION: Multilevel degenerative disease and postoperative change as described. No CT evidence of hardware failure. Moderate foraminal stenoses are present bilaterally at L3-4 and on the left at L4-5. Electronically Signed: Gigi Rothman MD at 13:41 EDT Tel , Service support ,
== END ==
PROVIDERS: Family Provider Family Medicine; PCP Family Medicine; Referring Provider Orthopaedic Surgery; Visit Provider Orthopaedic Surgery
DX: I73.9 Peripheral vascular disease, unspecified (principal); I87.2 Venous insufficiency (chronic) (peripheral); I99.8 Other disorder of circulatory system
CPT/HCPCS: 72131; 72192; 93923

== ENCOUNTER 2018-12-29 19:10 | Emergency (ER) | payer MEDICARE, SELFPAY ==
[2018-12-29 19:12] VITALS: BP 126/89; PULSE 94; RESP 18; TEMP 36.8; O2SAT 96; BMI 28.8
--- NOTE | 2018-12-29 20:00 | CT_ITS ---
STUDY: CTA CHEST REASON FOR EXAM: Female, 48 years old. Cough and fever. Diagnosed with pneumonia 2 weeks ago. History of CVA, seizure, lumbar fusion and gastric pacemaker. RADIATION DOSAGE (If Supplied By Facility): CTDIvol = ( 16.80 ) mGy, DLP = ( 526.11 ) mGycm TECHNIQUE: The examination was performed with the intravenous administration of 75ml IV Isovue 370. Post-processing of the angiographic images was performed, with multiplanar reformation and 3D reconstruction. Individualized dose optimization techniques were used for this CT. COMPARISON: Prior chest CT of July 11, 2018 FINDINGS: Limited for exclusion of small peripheral emboli secondary to bolus timing. The maximum concentration of contrast is in the systemic arterial side. Flow defect reduces sensitivity and the smaller pulmonary vessels. Negative for large central embolus. Mild elongation of the thoracic aorta without aneurysm or plaque. There is no demonstrated aortic dissection. Normal heart and pericardium. Normal mediastinum. Normal hilar regions. Normal visualized trachea and bronchi. The lungs are well expanded. Multiple small apical bulla. Negative for pleural effusion. Normal chest wall structures. Normal osseous structures. Small hiatal hernia. Status post cholecystectomy. CT/CTA Chest W/WO Contrast IMPRESSION: Negative for large central pulmonary embolus. Limited for exclusion of small peripheral pulmonary emboli secondary to bolus timing. Mild elongation of the thoracic aorta without aneurysm or plaque. Negative for coronary calcification. Multiple small apical bulla. No acute consolidation, focal atelectasis or pleural effusion. Small hiatal hernia. Status post cholecystectomy. Electronically Signed: Kerri Wolfe MD at 20:53 EDT , Service support ,
--- NOTE | 2018-12-29 20:00 | EKG12_ITS ---
Test Reason : SOB Blood Pressure : / mmHG Vent. Rate : 067 BPM Atrial Rate : 067 BPM P-R Int : 154 ms QRS Dur : 100 ms QT Int : 408 ms P-R-T Axes : -19 055 051 degrees QTc Int : 431 ms Normal sinus rhythm RSR' or QR pattern in V1 suggests right ventricular conduction delay Borderline ECG Confirmed by MARIYA JAMES ([id number]), food expeditor MARQUIS AVILA ([id number]) on 01/03/2019 2:17:58 PM Referred By: MATIAS Confirmed By:MARIYA JAMES
--- NOTE | 2018-12-29 20:02 | ED.DCSUM_ITS ---
- ER Visit Summary Date of Service: 12/29/18 Chief Complaint: Cough, shortness of breath History of Present Illness: The patient is a 48 F presenting with cough and shortness of breath. Patient states she was treated for walking pneumonia 2 weeks ago by her primary care physician. She does not recall what antibiotic she was taking but she completed the course of antibiotics. She states she was feeling improved and then over the weekend started to have similar complaints again. She has had temperature up to 102.8. She complains of pleuritic chest pain. She states 2 days ago she then began having nausea, vomiting, diarrhea. She denies blood in her stool or emesis. She has history of CVA, GERD, seizures, A. fib, gastroparesis, chronic back pain. She has had previous appendectomy, cholecystectomy, hysterectomy. Physical Examination: Vitals are stable. Patient is afebrile. Alert no acute distress. HEENT exam is unremarkable. Neck is supple. Lungs are wheezing bilaterally. Heart is regular rate and rhythm. Abdomen is soft mild diffuse tenderness with no rebound or guarding Extremities are unremarkable. Skin is warm and dry. No focal neurologic deficit. Remainder of exam is unremarkable. Emergency Department Course and Treatment: Patient given IV fluids, morphine, Zofran. She was given albuterol aerosol. EKG is sinus rate of 67 unchanged from previous. CBC, chemistries unremarkable. Liver lipase are normal other than alk phos 130. Troponin is negative. Urinalysis unremarkable. CTA chest shows negative for large central pulmonary embolus. Limited for exclusion of small peripheral pulmonary emboli secondary to bolus timing. Mild elongation of the thoracic aorta without aneurysm or plaque. Negative for coronary calcification. Multiple small apical bulla. No acute consolidation, focal atelectasis or pleural effusion. Small hiatal hernia. Status post cholecystectomy. On reevaluation, patient is resting comfortably. She states that chest pain is only when she coughs or takes a deep breath. She has been coughing frequently. She declines delta troponin. She is given prescription for Tessalon Perles. She is given albuterol MDI. She is given prescription for Zofran. She is advised to follow up with her primary care physician. Advised return to ED if worsening complaints. Disposition: Discharge home Impression: Bronchitis, chest wall pain, vomiting diarrhea This note was generated with [employer] software. It may contain incorrect words, spelling, and punctuation that were not noted in review of the chart danelle or to signing ED Disposition - Plan for ED Patient: Referrals: Amandeep Loredo [Primary Care Provider] -
[2018-12-29] MEDS: Ondansetron 4 MG/2 ML Vial IV (20:09)
[2018-12-29] MEDS: 0.9% Normal Saline 1,000 ML 1000 ML IV (20:09)
[2018-12-29 20:14] LABS: Absolute Lymphocyte Count 2.76 X10^3/ul (0.83-4.51); Absolute Neutrophil Count 4.1 X10^3/uL (2.0-7.7); Basophil# 0.05 X10^3/uL; Basophil% 0.7 % (0-1); Eosinophil# 0.09 X10^3/uL; Eosinophils% 1.2 % (0-5); Hematocrit 43.9 % (37-47); Hemoglobin 14.6 g/dl (12.0-15.0); Lymphocyte # 2.76 X10^3/ul (4.0); Lymphocyte % 36.3 % (19-41); Mean Corp Hgb Conc 33.3 g/gl (32-36); Mean Corpuscular Hgb 30.8 pg (27.0-32.0); Mean Corpuscular Volume 92.6 fL (81-99); Mean Platelet Vol. 10.2 fl (6.2-12.0); Monocyte# 0.57 X10^3/uL; Monocyte% 7.5 % (0-10); Neutrophil # 4.12 X10^3/uL (2.7-7.7); Neutrophil % 54.2 % (47-70); Platelet Count 312 K/mm3 (150-450); RBC Distribution Width CV 12.8 % (11.6-14.6); RBC Distribution Width SD 42.7 fl (35.1-43.9); Red Blood Count 4.74 M/mm3 (4.2-5.4); White Blood Count 7.6 K/mm3 (4.4-11.0)
[2018-12-29 20:15] LABS: POSITIVE COUNT NO; POSITIVE DIFFERENTIAL NO; POSITIVE MORPHOLOGY NO
[2018-12-29 20:33] LABS: AST(SGOT) 15 U/L (15-37); Alanine Aminotransfer ALT/SGPT 19 U/L (13-56); Albumin, Serum 3.4 g/dL (3.2-5.0); Alkaline Phosphatase 130 U/L (45-117); Anion Gap 5 (5-15); BUN 9 mg/dL (7-18); BUN/Creat Ratio 12.4 RATIO (10-20); Calcium,Total 8.9 mg/dL (8.5-10.1); Chloride 114 mmol/L (98-107); Creatinine, Serum 0.72 mg/dL (0.55-1.02); EST Glomerular Filtration Rate 90 mL/min (>60); Est Glom Filt Rate - Afr Amer 109 mL/min (>60); Estimated Creatinine Clearance 95.34 ml/min; Globulin 3.4 g/dL (2.2-4.2); Glucose 98 mg/dL (74-106); Lipase 212 U/L (73-393); Protein, Total 6.8 g/dL (6.4-8.2); Sodium Level 141 mmol/L (136-145)
[2018-12-29] MEDS: Albuterol 2.5 MG/3 ML VIAL.NEB. INHALATION ×2 (20:34→20:35)
[2018-12-29 20:35] VITALS: PULSE 87; RESP 18
[2018-12-29 21:06] LABS: Bacteria 0 SEEN /hpf (None Seen); Mucous, Urine 0 SEEN /hpf (<or=2+); Red Blood Cells-Urine 0 SEEN /hpf (0-5); Squamous Epithelial Cells - UA 0 SEEN /hpf (5-10); White Blood Cells 0 SEEN /hpf (0-5)
[2018-12-29] MEDS: Morphine 4 MG/ML Syringe IV ×2 (21:08→22:47)
[2018-12-29 21:11] VITALS: BP 146/88; PULSE 87; RESP 16; TEMP 36.9; O2SAT 95
[2018-12-29 21:23] LABS: Color, Urine Yellow (Yellow); Glucose, Dipstick Normal (Normal); Ketone-Dipstick Negative (Negative); Leukocyte Esterase-Dipstick Negative /ul (Negative); Nitrite-Dipstick Negative (Negative); Occult Blood-Urine 10 /ul (Negative); Protein-Dipstick Negative (Negative); Urine Bilirubin Dipstick Negative (Negative); Urine Clarity Clear (Clear); Urine Urobilinogen Normal (Normal)
[2018-12-29 22:12] VITALS: BP 139/79; PULSE 80; RESP 16; TEMP 36.9; O2SAT 96
--- NOTE | 2018-12-29 22:48 | ED.DEP ---
ED Disposition - Plan for ED Patient: Instructions: ED Diet Vomiting Diarrhea, ED Upper Resp Infec No Abx Tx Prescriptions: Ondansetron [Zofran Odt] 4 mg PO Q8H PRN PRN #10 tablet PRN Reason: Nausea Benzonatate [Tessalon Perle] 200 mg PO TID PRN PRN #20 capsule PRN Reason: Cough Referrals: Amandeep Loredo [Primary Care Provider] -
[2018-12-29 22:57] VITALS: BP 128/77; PULSE 87; RESP 16; O2SAT 97
== END 2018-12-29 23:07 | disposition home or self-care (01) ==
PROVIDERS: Emergency Provider Emergency Medicine; Family Provider Family Medicine; PCP Family Medicine
DX: J40 Bronchitis, not specified as acute or chronic (principal); R07.89 Other chest pain; R11.2 Nausea with vomiting, unspecified; R19.7 Diarrhea, unspecified; K21.9 Gastro-esophageal reflux disease without esophagitis; G40.909 Epilepsy, unspecified, not intractable, without status epilepticus; I48.91 Unspecified atrial fibrillation; Z79.82 Long term (current) use of aspirin; Z79.899 Other long term (current) drug therapy; Z86.73 Personal history of transient ischemic attack (TIA), and cerebral infarction without residual deficits
CPT/HCPCS: 71275; 80053; 81001; 83690; 84484; 85025; 93005; 94640; 96361; 96374; 96375; 96376; 99285; J7030; Q9967; A4216; J2405

== ENCOUNTER 2019-01-03 18:41 | Observation (INO) | payer MEDICARE, SELFPAY ==
[2019-01-03 18:41] VITALS: BP 131/81; PULSE 84; PULSE 92; RESP 15; RESP 17; TEMP 36.7; O2SAT 97; BMI 29.8
--- NOTE | 2019-01-03 19:29 | CT_ITS ---
STUDY: CT BRAIN WITHOUT CONTRAST REASON FOR EXAM: Female, 48 years old. Seizure RADIATION DOSAGE (If Supplied By Facility): CTDIvol = ( 44.99 ) mGy, DLP = ( 779.24 ) mGycm TECHNIQUE: Transaxial CT imaging of the brain was performed without administration of intravenous contrast material. Individualized dose optimization techniques were used for this CT. COMPARISON: October 18, 2018 FINDINGS: Normal soft tissue structures. Normal calvarium. Normal size ventricles and extra-axial spaces for the patient's age. Stable surgical clip anterior to the brainstem. Normal white matter tracts of the cerebral hemispheres. Normal basal ganglia and thalami. Normal brainstem. Normal cerebellum. There is no intracranial hemorrhage. There are no findings of an acute ischemic infarction. Right maxillary sinus mucosal thickening. CT/Brain/Head without Contrast IMPRESSION: No acute intracranial pathology or significant interval changes of the brain. Electronically Signed: Felipe Crowder DO at 21:24 EDT Tel [phone], Service support ,
--- NOTE | 2019-01-03 19:31 | EKG12_ITS ---
Test Reason : SEIZURES Blood Pressure : / mmHG Vent. Rate : 078 BPM Atrial Rate : 078 BPM P-R Int : 162 ms QRS Dur : 096 ms QT Int : 378 ms P-R-T Axes : 040 045 063 degrees QTc Int : 430 ms Normal sinus rhythm Possible Left atrial enlargement RSR' or QR pattern in V1 suggests right ventricular conduction delay Borderline ECG Confirmed by FRANKLIN RICHARDSON, MALLORY ([id number]), magazine editor MARQUIS AVILA ([id number]) on 01/05/2019 1:32:03 PM Referred By: Trevor Carranza Confirmed By:MALLORY REID MD
--- NOTE | 2019-01-03 19:31 | CT_ITS ---
STUDY: CT ABDOMEN AND PELVIS WITHOUT CONTRAST REASON FOR EXAM: Female, 48 years old. Nausea vomiting RADIATION DOSAGE (If Supplied By Facility): CTDIvol = ( 22.85 ) mGy, DLP = ( 1187.32 ) mGycm TECHNIQUE: Transaxial images were obtained from the dome of the diaphragm to the symphysis pubis without oral contrast, and without intravenous contrast. Sagittal and coronal images were reconstructed. Individualized dose optimization techniques were used for this CT. COMPARISON: None. FINDINGS: The visualized lung bases are unremarkable. The visualized portions of the heart are within normal limits. Normal liver. Status post cholecystectomy. Mild prominence of the extrahepatic biliary system. Normal spleen. Normal pancreas. Normal bilateral adrenal glands. Nonobstructive 2 mm stone in the right kidney. Normal left kidney. Normal visualized stomach. Normal small intestine. Normal colon. The appendix is not visualized. Normal abdominal aorta. Normal inferior vena cava. Normal retroperitoneum. Normal urinary bladder. Normal abdominal wall. Degenerative and postsurgical vertebral changes. CT/Abdomen/Pelvis without Cont IMPRESSION: Nonobstructing right renal stone. Electronically Signed: Felipe Crowder DO at 21:36 EDT Tel [phone], Service support ,
--- NOTE | 2019-01-03 19:33 | CT_ITS ---
STUDY: CT CERVICAL SPINE WITHOUT CONTRAST REASON FOR EXAM: Female, 48 years old. Seizure RADIATION DOSAGE (If Supplied By Facility): CTDIvol = ( 26.70 ) mGy, DLP = ( 635.17 ) mGycm TECHNIQUE: High resolution transaxial imaging was performed without contrast material. Sagittal and coronal images were reconstructed. Individualized dose optimization techniques were used for this CT. COMPARISON: None FINDINGS: Normal craniovertebral junction. Normal anterior atlantoaxial articulation. Normal odontoid process. Slightly reversed cervical lordosis. Normal vertebral bodies and posterior osseous elements. C2-3: Normal endplates. Normal disc height and morphology. Normal central canal and intervertebral neuroforamina. C3-4: Normal endplates. Normal disc height and morphology. Normal central canal and intervertebral neuroforamina. C4-5: Mild spurring at the endplates. Slightly narrowed disc height. Normal central canal. Uncovertebral spurring narrowing the intervertebral neuroforamina. C5-6: Normal endplates. Normal disc height and morphology. Normal central canal. Uncovertebral spurring narrowing the right intervertebral neural foramen. C6-7: Status post surgical fusion anteriorly. Normal central canal. Minimal uncovertebral spurring protruding into the intervertebral neuroforamina. C7-T1: Normal endplates. Normal disc height and morphology. Normal central canal and intervertebral neuroforamina. Normal visualized soft tissue structures. CT/Spine Cervical without Contras IMPRESSION: Mild degenerative and postsurgical changes as noted of the cervical spine. Electronically Signed: Felipe Crowder DO at 21:43 EDT Tel [phone], Service support ,
--- NOTE | 2019-01-03 19:35 | ED.VISSUMM ---
- ER Visit Summary Date of Service: 01/03/19 Chief Complaint: Breakthrough seizure History of Present Illness: The patient is a 48 F who presents for breakthrough seizure. Patient has a history of seizure disorder and is on Keppra 1000 mg twice daily. She has been sick for 2 weeks, initially with walking pneumonia that was treated with ciprofloxacin, and then developed nausea, diarrhea and vomiting 1 week ago. Patient states the diarrhea is now frequent and yellow and foamy. She has been unable to keep any of her seizure medications down. She thinks this is why she had the seizure. She has chills but no fever. She has associated diffuse abdominal pain. Today she was walking back from the bathroom after having an episode of vomiting and diarrhea, when she saw black spots in her vision and felt shaky. She woke up laying over a table in the [place] with her feet on the table in her head on the floor. She bit her tongue and was incontinent. She is complaining of left-sided neck pain and left-sided head pain. No alcohol or tobacco use. No other complaints at this time. Physical Examination: Vital signs: afebrile, hemodynamically stable, no hypoxia on room air General: well nourished, well developed, in no distress Skin: warm, dry, no rash, no pallor HEENT: normocephalic and tenderness, mild hematoma to the left temporoparietal region, no lacerations or abrasions; PERRL, EOMI, moist mucous membranes no maxillofacial trauma Spine: No midline tenderness, deformities or step-offs. Patient has paraspinal tenderness on the left C-spine Cardiovascular: regular rate and rhythm without murmurs, no peripheral edema, 2+ pulses all distal extremities Respiratory: No increased work of breathing, lungs are clear to auscultation bilaterally, no rales, rhonchi or wheezing Abdominal: Abdomen is soft, diffusely tender with normoactive bowel sounds, no guarding or rebound, no masses MSK: Moves all extremities, no deformities, normal strength Neuro: Awake and alert, oriented ?4. No facial droop, sensation and motor function intact and symmetric Test Results: Abnormal Lab Results 01/03/19 01/03/19 01/03/19 18:55 18:55 19:57 WBC 6.0 RBC 4.87 Hgb 15.2 H Hct 45.8 MCV 94.0 MCH 31.2 MCHC 33.2 RDW 13.0 RDW Differential 44.5 H Plt Count 298 MPV 10.0 Immature Gran % (Auto) 0.200 Neut % (Auto) 56.0 Lymph % (Auto) 29.4 [place] % (Auto) 11.9 H Eos % (Auto) 1.8 Baso % (Auto) 0.7 Absolute Neuts (auto) 3.4 Absolute Lymphs (auto) 1.76 Total Counted Not Reportable Sodium 141 Potassium 3.5 Chloride 110 H Carbon Dioxide 27.0 Anion Gap 4 L BUN 8 Creatinine 0.72 Estim Creat Clear Calc 95.34 Est GFR (MDRD) Af Amer 110 Est GFR (MDRD) Non-Af 91 BUN/Creatinine Ratio 11.0 Glucose 108 H Calcium 8.9 Total Bilirubin 0.30 AST 19 ALT 24 Alkaline Phosphatase 143 H Total Protein 6.9 Albumin 3.7 Globulin 3.2 Albumin/Globulin Ratio 1.2 Lipase 129 Urine Color Urine Clarity Urine pH Ur Specific [place] Urine Protein Urine Glucose (UA) Urine Ketones Urine Occult Blood Urine Nitrite Urine Bilirubin Urine Urobilinogen Ur Leukocyte Esterase Urine RBC Urine WBC Ur Squamous Epith Cells Urine Bacteria Urine Mucus POC Glucose 129 H 01/03/19 19:58 WBC RBC Hgb Hct MCV MCH MCHC RDW RDW Differential Plt Count MPV Immature Gran % (Auto) Neut % (Auto) Lymph % (Auto) Carbon % (Auto) Eos % (Auto) Baso % (Auto) Absolute Neuts (auto) Absolute Lymphs (auto) Total Counted Sodium Potassium Chloride Carbon Dioxide Anion Gap BUN Creatinine Estim Creat Clear Calc Est GFR (MDRD) Af Amer Est GFR (MDRD) Non-Af BUN/Creatinine Ratio Glucose Calcium Total Bilirubin AST ALT Alkaline Phosphatase Total Protein Albumin Globulin Albumin/Globulin Ratio Lipase Urine Color Yellow Urine Clarity Clear Urine pH 8.0 Ur Specific [place] 1.015 Urine Protein Negative Urine Glucose (UA) Normal Urine Ketones Negative Urine Occult Blood 50 H Urine Nitrite Negative Urine Bilirubin Negative Urine Urobilinogen Normal Ur Leukocyte Esterase Negative Urine RBC 0-5 SEEN Urine WBC 0 SEEN Ur Squamous Epith Cells 0-5 SEEN Urine Bacteria 0 SEEN Urine Mucus 0 SEEN POC Glucose Clinical Impression(s) from Imaging Studies Brain CT 01/03/19 19:29 IMPRESSION: No acute intracranial pathology or significant interval changes of the brain. Electronically Signed: Felipe Crowder DO at 21:24 EDT Tel [phone], Service support , Abdomen/Pelvis CT 01/03/19 19:31 IMPRESSION: Nonobstructing right renal stone. Electronically Signed: Felipe Crowder, DO at 21:36 EDT Tel [phone], Service support , Cervical Spine CT 01/03/19 19:33 IMPRESSION: Mild degenerative and postsurgical changes as noted of the cervical spine. Electronically Signed: Felipe Crowder, DO at 21:43 EDT Tel [phone], Service support , Medications Given Acetaminophen (Tylenol) 650 mg PO Q6H PRN PRN PRN Reason: Mild Pain (1-3)/Temp > 100.7 F Albuterol Sulfate (Ventolin Aerosols) 2.5 mg INHALATION Q2H PRN PRN PRN Reason: sob/wheezing Aspirin (Aspirin, Baby) 81 mg PO DAILY@0800 ADAM Dextrose (D50w Syringe) 0 gm IV X1 PRN; Protocol PRN Reason: Hypoglycemia Enoxaparin Sodium (Lovenox) 40 mg SC DAILY@1000 ADAM Fluticasone Propionate (Flonase Nasal [place]) 2 spray NASAL BID ADAM Glucagon () 1 mg IM .X1 PRN PRN Reason: Hypoglycemia Potassium Chloride 40 meq/ (Sodium Chloride) 1,020 mls @ 100 mls/hr IV .[id number] ADAM Stop: 01/04/19 09:54 Levetiracetam (Keppra Iv) 100 mls @ 400 mls/hr IV Q12 ADAM Metronidazole (Flagyl) 500 mg in 100 mls @ 100 mls/hr IV Q8 ADAM Pantoprazole Sodium 40 mg/ (Sodium Chloride) 110 mls @ 330 mls/hr IV Q24 ADAM Melatonin (Melatonin) 3 mg PO QHS PRN PRN PRN Reason: INSOMNIA Morphine Sulfate () 2 mg IV Q3H PRN PRN PRN Reason: Severe pain (7-10/10) Ondansetron HCl (Zofran) 4 mg IV Q8H PRN PRN PRN Reason: NAUSEA/VOMITING Oxycodone HCl (Oxyir) 5 mg PO Q4H PRN PRN PRN Reason: MODERATE PAIN (4-5/10) Vancomycin HCl () 125 mg PO Q6 ADAM Discontinued Medications Sodium Chloride () 1,000 mls @ 1,000 mls/hr IV .Q1H ONE Stop: 01/03/19 20:28 Last Admin: 01/03/19 19:50 Dose: 1,000 mls/hr Levetiracetam (Keppra Iv) 1,000 mg in 100 mls @ 400 mls/hr IV X1 ONE Stop: 01/03/19 19:47 Last Admin: 01/03/19 19:50 Dose: 400 mls/hr Metronidazole (Flagyl) 500 mg in 100 mls @ 100 mls/hr IV X1 ONE Stop: 01/03/19 23:33 Last Admin: 01/03/19 22:48 Dose: 100 mls/hr Ketorolac Tromethamine (Toradol) 15 mg IV X1 ONE Stop: 01/03/19 22:00 Last Admin: 01/03/19 22:29 Dose: 15 mg Lorazepam (Ativan) 1 mg IV X1 ONE Stop: 01/03/19 22:46 Last Admin: 01/03/19 23:15 Dose: 1 mg Metoclopramide HCl (Reglan) 10 mg IV X1 ONE Stop: 01/03/19 21:39 Last Admin: 01/03/19 21:43 Dose: 10 mg Morphine Sulfate () 4 mg IV X1 ONE Stop: 01/03/19 19:30 Last Admin: 01/03/19 19:50 Dose: 4 mg Ondansetron HCl (Zofran) 4 mg IV X1 ONE Stop: 01/03/19 19:30 Last Admin: 01/03/19 19:50 Dose: 4 mg Emergency Department Course and Treatment: Because of patient's trauma during the seizure, head CT and C-spine were performed. Head CT showed no intracranial hemorrhage and C-spine showed no fractures or dislocations. Patient was given IV fluids for dehydration, Zofran for her nausea and morphine for her pain. She was also loaded with Keppra IV. CT the abdomen and pelvis performed and showed no acute findings. CBC showed no leukocytosis. CMP and lipase were normal. Blood glucose at initial presentation was within normal limits. Because patient has had diarrhea for 1 week, C. difficile was checked and it was positive. Patient has been having the vomiting, resulting in her unable to keep her seizure medications down and then resulting in the breakthrough seizure. Patient is not a good candidate for oral treatment for the C. difficile diarrhea, that she was started on IV metronidazole. Because patient is having difficulty tolerating oral medications, she would benefit from admission for treatment of her C. difficile diarrhea as well as treatment with IV seizure medications until she is able to tolerate her medications orally again. Patient was given a dose of Ativan for her right paraspinal muscle spasm from her fall. Patient was discussed with the hospitalist and admitted. Treatment Plan: [] Disposition: [] Impression: Breakthrough seizure, C. difficile diarrhea, closed head injury, right cervical strain This note was generated with [employer] dictation software. It may contain incorrect words, spelling, and punctuation that were not noted in review of the chart prior to signing ED Disposition - Plan for ED Patient: Disposition: Acute Care Hospital [facility]
--- NOTE | 2019-01-03 19:38 | ED.DCSUM_ITS ---
- ER Visit Summary Date of Service: 01/03/19 Chief Complaint: Breakthrough seizure History of Present Illness: The patient is a 48 F who presents for breakthrough seizure. Patient has a history of seizure disorder and is on Keppra 1000 mg twice daily. She has been sick for 2 weeks, initially with walking pneumonia that was treated with ciprofloxacin, and then developed nausea, diarrhea and vomiting 1 week ago. Patient states the diarrhea is now frequent and yellow and foamy. She has been unable to keep any of her seizure medications down. She thinks this is why she had the seizure. She has chills but no fever. She has associated diffuse abdominal pain. Today she was walking back from the bathroom after having an episode of vomiting and diarrhea, when she saw black spots in her vision and felt shaky. She woke up laying over a table in the [place] with her feet on the table in her head on the floor. She bit her tongue and was incontinent. She is complaining of left-sided neck pain and left-sided head pain. No alcohol or tobacco use. No other complaints at this time. Physical Examination: Vital signs: afebrile, hemodynamically stable, no hypoxia on room air General: well nourished, well developed, in no distress Skin: warm, dry, no rash, no pallor HEENT: normocephalic and tenderness, mild hematoma to the left temporoparietal region, no lacerations or abrasions; PERRL, EOMI, moist mucous membranes no maxillofacial trauma Spine: No midline tenderness, deformities or step-offs. Patient has paraspinal tenderness on the left C-spine Cardiovascular: regular rate and rhythm without murmurs, no peripheral edema, 2+ pulses all distal extremities Respiratory: No increased work of breathing, lungs are clear to auscultation bilaterally, no rales, rhonchi or wheezing Abdominal: Abdomen is soft, diffusely tender with normoactive bowel sounds, no guarding or rebound, no masses MSK: Moves all extremities, no deformities, normal strength Neuro: Awake and alert, oriented ?4. No facial droop, sensation and motor function intact and symmetric Test Results: Abnormal Lab Results 01/03/19 01/03/19 01/03/19 18:55 18:55 19:57 WBC 6.0 RBC 4.87 Hgb 15.2 H Hct 45.8 MCV 94.0 MCH 31.2 MCHC 33.2 RDW 13.0 RDW Differential 44.5 H Plt Count 298 MPV 10.0 Immature Gran % (Auto) 0.200 Neut % (Auto) 56.0 Lymph % (Auto) 29.4 [place] % (Auto) 11.9 H Eos % (Auto) 1.8 Baso % (Auto) 0.7 Absolute Neuts (auto) 3.4 Absolute Lymphs (auto) 1.76 Total Counted Not Reportable Sodium 141 Potassium 3.5 Chloride 110 H Carbon Dioxide 27.0 Anion Gap 4 L BUN 8 Creatinine 0.72 Estim Creat Clear Calc 95.34 Est GFR (MDRD) Af Amer 110 Est GFR (MDRD) Non-Af 91 BUN/Creatinine Ratio 11.0 Glucose 108 H Calcium 8.9 Total Bilirubin 0.30 AST 19 ALT 24 Alkaline Phosphatase 143 H Total Protein 6.9 Albumin 3.7 Globulin 3.2 Albumin/Globulin Ratio 1.2 Lipase 129 Urine Color Urine Clarity Urine pH Ur Specific [place] Urine Protein Urine Glucose (UA) Urine Ketones Urine Occult Blood Urine Nitrite Urine Bilirubin Urine Urobilinogen Ur Leukocyte Esterase Urine RBC Urine WBC Ur Squamous Epith Cells Urine Bacteria Urine Mucus POC Glucose 129 H 01/03/19 19:58 WBC RBC Hgb Hct MCV MCH MCHC RDW RDW Differential Plt Count MPV Immature Gran % (Auto) Neut % (Auto) Lymph % (Auto) [place] % (Auto) Eos % (Auto) Baso % (Auto) Absolute Neuts (auto) Absolute Lymphs (auto) Total Counted Sodium Potassium Chloride Carbon Dioxide Anion Gap BUN Creatinine Estim Creat Clear Calc Est GFR (MDRD) Af Amer Est GFR (MDRD) Non-Af BUN/Creatinine Ratio Glucose Calcium Total Bilirubin AST ALT Alkaline Phosphatase Total Protein Albumin Globulin Albumin/Globulin Ratio Lipase Urine Color Yellow Urine Clarity Clear Urine pH 8.0 Ur Specific [place] 1.015 Urine Protein Negative Urine Glucose (UA) Normal Urine Ketones Negative Urine Occult Blood 50 H Urine Nitrite Negative Urine Bilirubin Negative Urine Urobilinogen Normal Ur Leukocyte Esterase Negative Urine RBC 0-5 SEEN Urine WBC 0 SEEN Ur Squamous Epith Cells 0-5 SEEN Urine Bacteria 0 SEEN Urine Mucus 0 SEEN POC Glucose Clinical Impression(s) from Imaging Studies Brain CT 01/03/19 19:29 IMPRESSION: No acute intracranial pathology or significant interval changes of the brain. Electronically Signed: Felipe Crowder DO at 21:24 EDT Tel [phone], Service support , Abdomen/Pelvis CT 01/03/19 19:31 IMPRESSION: Nonobstructing right renal stone. Electronically Signed: Felipe Crowder, DO at 21:36 EDT Tel [phone], Service support , Cervical Spine CT 01/03/19 19:33 IMPRESSION: Mild degenerative and postsurgical changes as noted of the cervical spine. Electronically Signed: Felipe Crowder, DO at 21:43 EDT Tel [phone], Service support , Medications Given Acetaminophen (Tylenol) 650 mg PO Q6H PRN PRN PRN Reason: Mild Pain (1-3)/Temp > 100.7 F Albuterol Sulfate (Ventolin Aerosols) 2.5 mg INHALATION Q2H PRN PRN PRN Reason: sob/wheezing Aspirin (Aspirin, Baby) 81 mg PO DAILY@0800 ADAM Dextrose (D50w Syringe) 0 gm IV X1 PRN; Protocol PRN Reason: Hypoglycemia Enoxaparin Sodium (Lovenox) 40 mg SC DAILY@1000 ADAM Fluticasone Propionate (Flonase Nasal [place]) 2 spray NASAL BID ADAM Glucagon () 1 mg IM .X1 PRN PRN Reason: Hypoglycemia Potassium Chloride 40 meq/ (Sodium Chloride) 1,020 mls @ 100 mls/hr IV .[id number] ADAM Stop: 01/04/19 09:54 Levetiracetam (Keppra Iv) 100 mls @ 400 mls/hr IV Q12 ADAM Metronidazole (Flagyl) 500 mg in 100 mls @ 100 mls/hr IV Q8 ADAM Pantoprazole Sodium 40 mg/ (Sodium Chloride) 110 mls @ 330 mls/hr IV Q24 ADAM Melatonin (Melatonin) 3 mg PO QHS PRN PRN PRN Reason: INSOMNIA Morphine Sulfate () 2 mg IV Q3H PRN PRN PRN Reason: Severe pain (7-10/10) Ondansetron HCl (Zofran) 4 mg IV Q8H PRN PRN PRN Reason: NAUSEA/VOMITING Oxycodone HCl (Oxyir) 5 mg PO Q4H PRN PRN PRN Reason: MODERATE PAIN (4-5/10) Vancomycin HCl () 125 mg PO Q6 ADAM Discontinued Medications Sodium Chloride () 1,000 mls @ 1,000 mls/hr IV .Q1H ONE Stop: 01/03/19 20:28 Last Admin: 01/03/19 19:50 Dose: 1,000 mls/hr Levetiracetam (Keppra Iv) 1,000 mg in 100 mls @ 400 mls/hr IV X1 ONE Stop: 01/03/19 19:47 Last Admin: 01/03/19 19:50 Dose: 400 mls/hr Metronidazole (Flagyl) 500 mg in 100 mls @ 100 mls/hr IV X1 ONE Stop: 01/03/19 23:33 Last Admin: 01/03/19 22:48 Dose: 100 mls/hr Ketorolac Tromethamine (Toradol) 15 mg IV X1 ONE Stop: 01/03/19 22:00 Last Admin: 01/03/19 22:29 Dose: 15 mg Lorazepam (Ativan) 1 mg IV X1 ONE Stop: 01/03/19 22:46 Last Admin: 01/03/19 23:15 Dose: 1 mg Metoclopramide HCl (Reglan) 10 mg IV X1 ONE Stop: 01/03/19 21:39 Last Admin: 01/03/19 21:43 Dose: 10 mg Morphine Sulfate () 4 mg IV X1 ONE Stop: 01/03/19 19:30 Last Admin: 01/03/19 19:50 Dose: 4 mg Ondansetron HCl (Zofran) 4 mg IV X1 ONE Stop: 01/03/19 19:30 Last Admin: 01/03/19 19:50 Dose: 4 mg Emergency Department Course and Treatment: Because of patient's trauma during the seizure, head CT and C-spine were performed. Head CT showed no intracranial hemorrhage and C-spine showed no fractures or dislocations. Patient was given IV fluids for dehydration, Zofran for her nausea and morphine for her pain. She was also loaded with Keppra IV. CT the abdomen and pelvis performed and showed no acute findings. CBC showed no leukocytosis. CMP and lipase were normal. Blood glucose at initial presentation was within normal limits. Because patient has had diarrhea for 1 week, C. difficile was checked and it was positive. Patient has been having the vomiting, resulting in her unable to keep her seizure medications down and then resulting in the breakthrough seizure. Patient is not a good candidate for oral treatment for the C. difficile diarrhea, that she was started on IV metronidazole. Because patient is having difficulty tolerating oral medications, she would benefit from admission for treatment of her C. difficile diarrhea as well as treatment with IV seizure medications until she is able to tolerate her medications orally again. Patient was given a dose of Ativan for her right paraspinal muscle spasm from her fall. Patient was discussed with the hospitalist and admitted. Treatment Plan: [] Disposition: [] Impression: Breakthrough seizure, C. difficile diarrhea, closed head injury, right cervical strain This note was generated with [employer] dictation software. It may contain incorrect words, spelling, and punctuation that were not noted in review of the chart prior to signing ED Disposition - Plan for ED Patient: Disposition: Acute Care Hospital [facility]
[2019-01-03] MEDS: Ondansetron 4 MG/2 ML Vial IV (19:50)
[2019-01-03] MEDS: 0.9% Normal Saline 1,000 ML 1000 ML IV (19:50)
[2019-01-03] MEDS: Morphine 4 MG/ML Syringe IV (19:50)
[2019-01-03] MEDS: levETIRAcetam IV 1,000 MG/100 ML BAG 400 MG IV (19:50)
[2019-01-03 19:57] LABS: Absolute Lymphocyte Count 1.76 X10^3/ul (0.83-4.51); Absolute Neutrophil Count 3.4 X10^3/uL (2.0-7.7); Basophil# 0.04 X10^3/uL; Basophil% 0.7 % (0-1); Eosinophil# 0.11 X10^3/uL; Eosinophils% 1.8 % (0-5); Hematocrit 45.8 % (37-47); Hemoglobin 15.2 g/dl (12.0-15.0); Lymphocyte # 1.76 X10^3/ul (4.0); Lymphocyte % 29.4 % (19-41); Mean Corp Hgb Conc 33.2 g/gl (32-36); Mean Corpuscular Hgb 31.2 pg (27.0-32.0); Monocyte# 0.71 X10^3/uL; Monocyte% 11.9 % (0-10); Neutrophil # 3.36 X10^3/uL (2.7-7.7); Platelet Count 298 K/mm3 (150-450); RBC Distribution Width SD 44.5 fl (35.1-43.9); Red Blood Count 4.87 M/mm3 (4.2-5.4)
[2019-01-03 19:58] LABS: POSITIVE COUNT NO; POSITIVE DIFFERENTIAL NO; POSITIVE MORPHOLOGY NO
[2019-01-03 20:06] LABS: Bedside Glucose 129 mg/dL (70-110)
[2019-01-03 20:06] LABS: Bacteria 0 SEEN /hpf (None Seen); Mucous, Urine 0 SEEN /hpf (<or=2+); White Blood Cells 0 SEEN /hpf (0-5)
[2019-01-03 20:10] LABS: ALB/GLOB Ratio 1.2 RATIO (0.9-2.4); AST(SGOT) 19 U/L (15-37); Alanine Aminotransfer ALT/SGPT 24 U/L (13-56); Albumin, Serum 3.7 g/dL (3.2-5.0); Alkaline Phosphatase 143 U/L (45-117); Anion Gap 4 (5-15); BUN 8 mg/dL (7-18); Calcium,Total 8.9 mg/dL (8.5-10.1); Chloride 110 mmol/L (98-107); Creatinine, Serum 0.72 mg/dL (0.55-1.02); EST Glomerular Filtration Rate 91 mL/min (>60); Est Glom Filt Rate - Afr Amer 110 mL/min (>60); Estimated Creatinine Clearance 95.34 ml/min; Globulin 3.2 g/dL (2.2-4.2); Glucose 108 mg/dL (74-106); Lipase 129 U/L (73-393); Potassium 3.5 mmol/L (3.5-5.1); Protein, Total 6.9 g/dL (6.4-8.2); Sodium Level 141 mmol/L (136-145)
[2019-01-03 20:25] LABS: Color, Urine Yellow (Yellow); Glucose, Dipstick Normal (Normal); Ketone-Dipstick Negative (Negative); Leukocyte Esterase-Dipstick Negative /ul (Negative); Nitrite-Dipstick Negative (Negative); Occult Blood-Urine 50 /ul (Negative); Protein-Dipstick Negative (Negative); Specific Gravity, Urine 1.015 (1.002-1.030); Urine Bilirubin Dipstick Negative (Negative); Urine Clarity Clear (Clear); Urine Urobilinogen Normal (Normal)
[2019-01-03 20:37] LABS: Red Blood Cells-Urine 0-5 SEEN /hpf (0-5); Squamous Epithelial Cells - UA 0-5 SEEN /hpf (5-10)
[2019-01-03 20:41] VITALS: BP 133/71; PULSE 86; RESP 16; O2SAT 96
[2019-01-03] MEDS: Metoclopramide 10 MG/2 ML Vial IV (21:43)
[2019-01-03] MEDS: Ketorolac 15 MG/ML Vial IV (22:29)
--- NOTE | 2019-01-03 22:41 | PCM.HP.STD ---
Problem List (1) Seizure disorder Status: Chronic (2) C. difficile colitis Status: Acute History of Present Illness Date of Admission: 01/03/19 Chief Complaint: breakthrough seizure The patient is a 48 year old F with a significant history of seizure who presented to the emergency department because of breakthrough seizure brought about by inability to keep medication down. Patient has been having nausea vomiting and diarrhea for the past 8 days. She is on Keppra p.o. However she is unable to keep anything down currently due to her nausea and vomiting. Subsequently she had a seizure. She hit the back of her head and has pain in her right neck. At the emergency department C. difficile test came back to be positive. 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) Nondiabetic gastroparesis (Chronic) 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 (Chronic) IT band syndrome (Chronic) Allergies Penicillins Allergy (Verified 01/03/19 18:48) Anaphylaxis propoxyphene napsylate [From Darvocet-N 100] Allergy (Verified 01/03/19 18:48) Rash hydrocodone bitartrate [From Vicodin] Adverse Reaction (Verified 01/03/19 18:48) Itching latex Adverse Reaction (Verified 01/03/19 18:48) blistering of skin venom-honey bee [bee venom (honey bee)] Adverse Reaction (Verified 01/03/19 18:48) Chest tightness PLASTIC TAPE Allergy (Uncoded 01/03/19 18:48) blistering IV contrast Adverse Reaction (Uncoded 01/03/19 18:48) Vomiting Home Medications: Ambulatory Orders Medication Instructions Recorded Albuterol Sulfate [Ventolin Hfa] 2 puff IH Q6H PRN PRN 09/30/16 Fluticasone 0.05% [Flonase Nasal 2 spray NASAL BID 09/30/16 [place]] Aspirin [Aspirin, Baby] 81 mg PO DAILY@0800 tab.chew 12/31/16 levETIRAcetam tablet [Keppra 1,000 mg PO BID 09/06/17 tablet] Multivitamin [Multiple Vitamins] 1 each PO DAILY 11/08/18 Pantoprazole Sodium [Protonix] 40 mg PO BID 11/08/18 Benzonatate [Tessalon Perle] 200 mg PO TID PRN PRN #20 capsule 12/29/18 Ondansetron [Zofran Odt] 4 mg PO Q8H PRN PRN #10 tablet 12/29/18 Surgical History: appendectomy, cholecystectomy, hysterectomy, - - Multiple abdominal surgeries, including for kidney tumor, hysterectomy, cholecystectomy, endometriosis, brain aneursyms clamped and coiled, gastric pacemaker placement. Lives: Spouse/ Significant Other Smoking Status: Never smoker Alcohol: None - *Family History Maternal History Items: Diabetes Paternal History Items: Heart Disease Review of Systems Constitutional: Denies: Chills, Fever, Weight Change HEENT: Denies: Head Aches, Sinus Congestion, Sinus Drainage Cardiovascular: Denies: Chest Pain, Palpitations Respiratory: Denies: Cough, Shortness of breath at rest, Sputum production Gastrointestinal: Reports: Diarrhea, Nausea, Vomiting. Denies: Abdominal Pain Genitourinary: Denies: Dysuria Musculoskeletal: Denies: Joint Pain, Joint Tenderness Skin: Denies: Rash, Wounds Neurological: Reports: Seizures. Denies: Focal weakness, Numbness, Tingling Psychiatric: Denies: Anxiety, Depression, Homicidal Ideations, Suicidal Ideations Hematologic/ Lymphatic: Denies: Easy Bruising, Easy Bleeding VTE Information - Inpt Only VTE Present on Admission: No VTE Mechan Device Prophylaxis: None VTE Pharm Prophylaxis ordered?: Yes Patient Problems: Active and Suspected Problems C. difficile colitis (Acute) - Physical Exam General: Alert, Oriented x3, Cooperative HEENT: Atraumatic, PERRLA, EOMI, Normocephalic Neck: Supple, No JVD, Negative Carotid Bruits Lungs: Clear to auscultation, Normal air movement Cardiovascular: Regular rate, No murmurs Abdomen: Bowel Sounds Present, Soft, Non Tender Extremities: No edema, Capillary Refill Less than 3 Seconds Skin: No rashes, No breakdown Musculoskeletal: No Tenderness to Palpation of Joints or Extremities Neurological: Cranial nerves II-XII grossly intact Psych/Mental Status: Normal Affect, Appropriate Vital Signs Temp Pulse Resp BP Pulse Ox 98.1 F 86 16 133/71 H 96 01/03/19 18:41 01/03/19 20:41 01/03/19 20:41 01/03/19 20:41 01/03/19 20:41 Oxygen Flow Rate (L/min) 2 Oxygen Delivery Method Room Air Weight: 89 kg Body Mass Index (BMI) 29.8 Finger Stick Blood Glucose 129 Microbiology Past 72 Hours 01/03/19 19:58 C. difficile DNA Amplification - Final Stool Toxigenic C. difficile DNA Laboratory Tests Past 24 Hrs 01/03/19 01/03/19 01/03/19 18:55 18:55 19:58 WBC 6.0 RBC 4.87 Hgb 15.2 H Hct 45.8 MCV 94.0 MCH 31.2 MCHC 33.2 RDW 13.0 RDW Differential 44.5 H Plt Count 298 MPV 10.0 Immature Gran % (Auto) 0.200 Neut % (Auto) 56.0 Lymph % (Auto) 29.4 [place] % (Auto) 11.9 H Eos % (Auto) 1.8 Baso % (Auto) 0.7 Absolute Neuts (auto) 3.4 Absolute Lymphs (auto) 1.76 Total Counted Not Reportable Sodium 141 Potassium 3.5 Chloride 110 H Carbon Dioxide 27.0 Anion Gap 4 L BUN 8 Creatinine 0.72 Estim Creat Clear Calc 95.34 Est GFR (MDRD) Af Amer 110 Est GFR (MDRD) Non-Af 91 BUN/Creatinine Ratio 11.0 Glucose 108 H Calcium 8.9 Total Bilirubin 0.30 AST 19 ALT 24 Alkaline Phosphatase 143 H Total Protein 6.9 Albumin 3.7 Globulin 3.2 Albumin/Globulin Ratio 1.2 Lipase 129 Urine Color Yellow Urine Clarity Clear Urine pH 8.0 Ur Specific [place] 1.015 Urine Protein Negative Urine Glucose (UA) Normal Urine Ketones Negative Urine Occult Blood 50 H Urine Nitrite Negative Urine Bilirubin Negative Urine Urobilinogen Normal Ur Leukocyte Esterase Negative Urine RBC 0-5 SEEN Urine WBC 0 SEEN Ur Squamous Epith Cells 0-5 SEEN Urine Bacteria 0 SEEN Urine Mucus 0 SEEN POC Glucose 01/03/19 19:57 POC Glucose 129 H Assessment/Plan All Active Problems C. difficile colitis (Acute) Gastroparesis (Acute) Basilar artery aneurysm (Resolved) The patient is a 48 year old F with a significant history of seizure who presented to the emergency department because of breakthrough seizure brought about by inability to keep medication down; and also with diarrhea and was found to have positive C. difficile; and pain from hitting her neck from a fall secondary to seizure. Acute C. difficile colitis. Received normal saline bolus at emergency department. Potassium is low normal. We will continue patient on normal saline with potassium. Zofran as needed for nausea. Contact precautions ordered Received IV Flagyl in the emergency department because of difficult to keep anything down. We will continue IV metronidazole and will add p.o. vancomycin. Trend CBC and BMP. Seizure disorder Received Keppra IV at the emergency department. We will hold home Keppra and continue IV Keppra for now. Seizure precautions. Ativan prn for seizure GERD We will hold home Protonix and all other p.o. home meds. IV Protonix ordered. Neck strain/sprain. Received IV Ativan at emergency department for muscle spasm We will continue patient on PRN morphine IV; and PRN oxycodone. DVT prophylaxis Subcutaneous Lovenox ordered. Code Visit OBSV E&M: 46028 Initial observation care L3
[2019-01-03 22:52] VITALS: O2SAT 95
[2019-01-03] MEDS: LORazepam 2 MG/ML Syringe 1 MG IV (23:15)
[2019-01-03 23:52] VITALS: BMI 29.9
[2019-01-04 00:15] VITALS: BP 108/52; PULSE 81; RESP 18; TEMP 36.4; O2SAT 95
[2019-01-04] MEDS: Potassium Chloride 40 MEQ in 0.9% Normal Saline 1,000 ML 100 MEQ IV (01:06)
[2019-01-04] MEDS: 0.9% NaCl Peripheral Flush Adult/Peds IV ×7 (01:07→16:33)
[2019-01-04] MEDS: Morphine 2 MG/ML Syringe IV ×5 (01:07→15:44)
[2019-01-04 06:12] VITALS: BP 105/78; PULSE 96; RESP 18; TEMP 36.3; O2SAT 97
[2019-01-04 06:38] LABS: Hematocrit 41.9 % (37-47); Hemoglobin 13.7 g/dl (12.0-15.0); Mean Corp Hgb Conc 32.7 g/gl (32-36); Mean Corpuscular Hgb 30.9 pg (27.0-32.0); Mean Corpuscular Volume 94.4 fL (81-99); Mean Platelet Vol. 9.9 fl (6.2-12.0); Platelet Count 238 K/mm3 (150-450); RBC Distribution Width CV 13.1 % (11.6-14.6); RBC Distribution Width SD 43.7 fl (35.1-43.9); Red Blood Count 4.44 M/mm3 (4.2-5.4); White Blood Count 4.8 K/mm3 (4.4-11.0)
[2019-01-04 06:44] LABS: Scan Indicated on CBC? Y/N NO
[2019-01-04 06:54] LABS: Anion Gap 6 (5-15); BUN 8 mg/dL (7-18); BUN/Creat Ratio 11.5 RATIO (10-20); Calcium,Total 8.3 mg/dL (8.5-10.1); Chloride 115 mmol/L (98-107); EST Glomerular Filtration Rate 95 mL/min (>60); Est Glom Filt Rate - Afr Amer 115 mL/min (>60); Estimated Creatinine Clearance 98.07 ml/min; Glucose 88 mg/dL (74-106); Potassium 4.1 mmol/L (3.5-5.1); Sodium Level 145 mmol/L (136-145)
[2019-01-04] MEDS: Ondansetron 4 MG/2 ML Vial IV (07:25)
[2019-01-04] MEDS: levETIRAcetam IV 100 ML 400 MG IV (07:37)
[2019-01-04] MEDS: Ensure Clear 120 ML Liquid PO ×3 (08:32→21:32)
[2019-01-04] MEDS: Enoxaparin 40 MG/0.4 ML Syringe SC (08:33)
[2019-01-04] MEDS: Aspirin 81 MG TAB.CHEW PO (08:33)
[2019-01-04] MEDS: Fluticasone 0.05% 1 SPRAY NASAL.SRY 2 SPRAY NASAL ×2 (10:52→21:32)
[2019-01-04 11:36] VITALS: BP 112/69; PULSE 74; RESP 16; TEMP 35.9; O2SAT 97
[2019-01-04 14:07] VITALS: BP 112/63; PULSE 87; RESP 18; TEMP 36.8; O2SAT 97
[2019-01-04 14:12] VITALS: PULSE 90
--- NOTE | 2019-01-04 15:25 | CHAPLAIN ---
two attempts made to visit; pt is sleeping and then pt is in bathroom
[2019-01-04] MEDS: Dicyclomine 10 MG Capsule 20 MG PO ×2 (15:33→21:31)
--- NOTE | 2019-01-04 18:00 | PN_ITS ---
Patient Problems: Active and Suspected Problems C. difficile colitis (Acute) Subjective: Patient was seen and examined today, she has been telling nursing that she continues to have diarrhea-it is unknown how much diarrhea she is having at this time. I have stopped the patient's IV Flagyl because I do not believe that it adds any advantage over oral vancomycin, patient is able to take oral medications at this time. I do not feel the patient currently needs IV fluids, I have added Bentyl and Lomotil to provide some relief from diarrhea. - Physical Exam General: Alert, Oriented x3, Cooperative, No apparent distress, Well developed, Well nourished HEENT: Atraumatic, PERRLA, EOMI, Normocephalic Oral: Moist Mucosa Neck: Supple, No JVD, Trachea Midline, Thyroid Normal Size and Texture Lungs: Clear to auscultation, Normal air movement, No rhonchi, No wheeze, No rales Cardiovascular: Regular rate, Regular Rhythm, Normal S1, Normal S2, No murmurs, No Ectopic Activity Abdomen: Bowel Sounds Present, Soft, Non Tender, Non-Distended, No hernias noted Extremities: No clubbing, No cyanosis, No edema, Capillary Refill Less than 3 Seconds Skin: No rashes, No breakdown Musculoskeletal: No Tenderness to Palpation of Joints or Extremities Neurological: Cranial nerves II-XII grossly intact, Neuro grossly intact, Sensory exam intact to light touch and pain, Coordination normal Psych/Mental Status: Normal Affect, Appropriate, Alert and oriented to time, place, person, mood and affect Vital Signs Temp Pulse Resp BP Pulse Ox 98.3 F 90 18 112/63 97 01/04/19 14:07 01/04/19 14:12 01/04/19 14:07 01/04/19 14:07 01/04/19 14:07 Oxygen Flow Rate (L/min) 2 Oxygen Delivery Method Room Air Weight: 89.8 kg Body Mass Index (BMI) 29.9 Finger Stick Blood Glucose 129 Intake and Output for Last 24 Hours 01/02/19 01/03/19 01/04/19 23:59 23:59 23:59 Intake Total 2870 / 2870 Output Total 150 / 150 Balance 2720 / 2720 Microbiology Past 72 Hours 01/03/19 19:58 C. difficile DNA Amplification - Final Stool Toxigenic C. difficile DNA Laboratory Tests Past 24 Hrs 01/03/19 01/03/19 01/03/19 18:55 18:55 19:58 WBC 6.0 RBC 4.87 Hgb 15.2 H Hct 45.8 MCV 94.0 MCH 31.2 MCHC 33.2 RDW 13.0 RDW Differential 44.5 H Plt Count 298 MPV 10.0 Immature Gran % (Auto) 0.200 Neut % (Auto) 56.0 Lymph % (Auto) 29.4 [place] % (Auto) 11.9 H Eos % (Auto) 1.8 Baso % (Auto) 0.7 Absolute Neuts (auto) 3.4 Absolute Lymphs (auto) 1.76 Total Counted Not Reportable Sodium 141 Potassium 3.5 Chloride 110 H Carbon Dioxide 27.0 Anion Gap 4 L BUN 8 Creatinine 0.72 Estim Creat Clear Calc 95.34 Est GFR (MDRD) Af Amer 110 Est GFR (MDRD) Non-Af 91 BUN/Creatinine Ratio 11.0 Glucose 108 H Calcium 8.9 Total Bilirubin 0.30 AST 19 ALT 24 Alkaline Phosphatase 143 H Total Protein 6.9 Albumin 3.7 Globulin 3.2 Albumin/Globulin Ratio 1.2 Lipase 129 Urine Color Yellow Urine Clarity Clear Urine pH 8.0 Ur Specific [place] 1.015 Urine Protein Negative Urine Glucose (UA) Normal Urine Ketones Negative Urine Occult Blood 50 H Urine Nitrite Negative Urine Bilirubin Negative Urine Urobilinogen Normal Ur Leukocyte Esterase Negative Urine RBC 0-5 SEEN Urine WBC 0 SEEN Ur Squamous Epith Cells 0-5 SEEN Urine Bacteria 0 SEEN Urine Mucus 0 SEEN 01/04/19 01/04/19 06:20 06:20 WBC 4.8 RBC 4.44 Hgb 13.7 Hct 41.9 MCV 94.4 MCH 30.9 MCHC 32.7 RDW 13.1 RDW Differential 43.7 Plt Count 238 MPV 9.9 Immature Gran % (Auto) Neut % (Auto) Lymph % (Auto) [place] % (Auto) Eos % (Auto) Baso % (Auto) Absolute Neuts (auto) Absolute Lymphs (auto) Total Counted Sodium 145 Potassium 4.1 Chloride 115 H Carbon Dioxide 24.0 Anion Gap 6 BUN 8 Creatinine 0.70 Estim Creat Clear Calc 98.07 Est GFR (MDRD) Af Amer 115 Est GFR (MDRD) Non-Af 95 BUN/Creatinine Ratio 11.5 Glucose 88 Calcium 8.3 L Total Bilirubin AST ALT Alkaline Phosphatase Total Protein Albumin Globulin Albumin/Globulin Ratio Lipase Urine Color Urine Clarity Urine pH Ur Specific [place] Urine Protein Urine Glucose (UA) Urine Ketones Urine Occult Blood Urine Nitrite Urine Bilirubin Urine Urobilinogen Ur Leukocyte Esterase Urine RBC Urine WBC Ur Squamous Epith Cells Urine Bacteria Urine Mucus POC Glucose 01/03/19 19:57 POC Glucose 129 H Medical Necessity - Tobacco Use Smoking Status: Never smoker Assessment/Plan All Active Problems C. difficile colitis (Acute) Gastroparesis (Acute) Basilar artery aneurysm (Resolved) #1 C. difficile colitis-patient will remain on oral vancomycin, continue to monitor I's and O's #2 chronic gastroparesis #3 nausea and vomiting-possibly secondary to chronic gastroparesis, I have decided to advance patient's diet to a regular soft diet today #4 seizure disorder-patient has not had an EEG performed in several years, she obtains her seizure medication from her PCP. Patient does not have a neurologist that she follows up with on a regular basis. I have stopped the patient's IV seizure medication and changed her over to oral Keppra. #5 degenerative disc disease of the lumbar spine #6 cerebrovascular disease Code Visit OBSV E&M: 30275 Subsequent observation care L3
[2019-01-04] MEDS: oxyCODONE 5 MG Tablet PO (20:18)
[2019-01-04 20:25] VITALS: BP 115/76; PULSE 76; RESP 18; TEMP 36.4; O2SAT 97
[2019-01-04] MEDS: Diphenoxylate/Atrop 1 Tablet PO (20:25)
[2019-01-04] MEDS: levETIRAcetam 1,000 MG Tablet 1000 MG PO (21:31)
[2019-01-04] MEDS: Acetaminophen 325 MG Tablet 650 MG PO (21:31)
[2019-01-04] MEDS: MELATONIN 3 MG TABLET PO (21:38)
[2019-01-05] MEDS: oxyCODONE 5 MG Tablet PO ×2 (02:19→11:23)
[2019-01-05 02:21] VITALS: BP 108/67; PULSE 60; RESP 16; TEMP 36.2; O2SAT 95
[2019-01-05] MEDS: Dicyclomine 10 MG Capsule 20 MG PO ×2 (06:31→11:20)
[2019-01-05 07:40] VITALS: O2SAT 96
[2019-01-05 08:57] VITALS: BP 115/67; PULSE 69; RESP 16; TEMP 36.6; O2SAT 98
[2019-01-05] MEDS: Pantoprazole Sodium 40 MG Tablet PO (09:04)
[2019-01-05] MEDS: Ensure Clear 120 ML Liquid PO (09:04)
[2019-01-05] MEDS: Aspirin 81 MG TAB.CHEW PO (09:04)
[2019-01-05] MEDS: Enoxaparin 40 MG/0.4 ML Syringe SC (09:04)
[2019-01-05] MEDS: Fluticasone 0.05% 1 SPRAY NASAL.SRY 2 SPRAY NASAL (09:04)
[2019-01-05] MEDS: levETIRAcetam 1,000 MG Tablet 1000 MG PO (09:04)
--- NOTE | 2019-01-05 10:36 | CASEMGMT ---
This CLIVE VALENZUELA to room with BRAN form at this time, explanation done-pt voices understanding, and signs consent at this time. Original to chart and pt declines a copy at this time. Pt voices no further questions/concerns/needs at this time. S[place]en CLIVE VALENZUELA
--- NOTE | 2019-01-05 11:14 | PCM.DC ---
- Discharge Diagnoses Current Active Problems: Current Active and Chronic Problems C. difficile colitis (Acute) You will use the following diet at home:: No restrictions Your food should be the consistency of: Regular Your liquids should be the consistency of: Regular/Thin Discharge Activity: Return to Normal Activity Weight Bearing Status: Full weight bearing Additional Instructions: Clean around commode at home with mixture 1 part bleach in 9 parts water as disinfectant Allergies/Adverse Reactions: Allergies Penicillins Allergy (Verified 01/03/19 18:48) Anaphylaxis propoxyphene napsylate [From Darvocet-N 100] Allergy (Verified 01/03/19 18:48) Rash hydrocodone bitartrate [From Vicodin] Adverse Reaction (Verified 01/03/19 18:48) Itching latex Adverse Reaction (Verified 01/03/19 18:48) blistering of skin venom-honey bee [bee venom (honey bee)] Adverse Reaction (Verified 01/03/19 18:48) Chest tightness PLASTIC TAPE Allergy (Uncoded 01/03/19 18:48) blistering IV contrast Adverse Reaction (Uncoded 01/03/19 18:48) Vomiting Medications to take at Discharge Albuterol Sulfate [Ventolin Hfa] 2 puff IH Q6H PRN PRN 09/30/16 Fluticasone 0.05% [Flonase Nasal [place]] 2 spray NASAL BID 09/30/16 Aspirin [Aspirin, Baby] 81 mg PO DAILY@0800 tab.chew 12/31/16 levETIRAcetam tablet [Keppra tablet] 1,000 mg PO BID 09/06/17 Multivitamin [Multiple Vitamins] 1 each PO DAILY 11/08/18 Pantoprazole Sodium [Protonix] 40 mg PO BID 11/08/18 Benzonatate [Tessalon Perle] 200 mg PO TID PRN PRN #20 capsule 12/29/18 Ondansetron [Zofran Odt] 4 mg PO Q8H PRN PRN #10 tablet 12/29/18 Acetaminophen [Tylenol Tablet] 650 mg PO Q6H PRN PRN tablet 01/05/19 Cyclobenzaprine [Flexeril] 5 - 10 mg PO TID PRN PRN #30 tablet 01/05/19 Dicyclomine HCl [Bentyl] 20 mg PO ACHS #60 capsule 01/05/19 Diphenoxylate/Atrop [Lomotil] 1 tablet PO 4X/DAY PRN PRN #20 tablet 01/05/19 Vancomcyin 125mg/5mL PO Liquid 125 mg PO Q6 #36 po.syringe 01/05/19 traMADol [Ultram (G)] 50 - 100 mg PO Q6H PRN PRN 7 Days #50 tablet 01/05/19 The following prescriptions were given: traMADol [Ultram (G)] 50 - 100 mg PO Q6H PRN PRN 7 Days #50 tablet PRN Reason: Pain Cyclobenzaprine [Flexeril] 5 - 10 mg PO TID PRN PRN #30 tablet PRN Reason: Muscle Spasm Dicyclomine HCl [Bentyl] 20 mg PO ACHS #60 capsule Diphenoxylate/Atrop [Lomotil] 1 tablet PO 4X/DAY PRN PRN #20 tablet PRN Reason: Diarrhea Vancomcyin 125mg/5mL PO Liquid 125 mg PO Q6 #36 po.syringe Primary Care Physician: Amandeep Loredo [Primary Care Provider] - Please follow up with your Primary Care Physician in: in two weeks Test Results: Test results from this visit will be discussed in further detail at your follow-up appointment, if applicable.
--- NOTE | 2019-01-05 12:16 | CASEMGMT ---
This CLIVE VALENZUELA received a call from Ayesha in the pharmacy and she states that the Vancomycin syringes are not covered on pt's insurance but the capsules are and the co-pay is only $1.[address] Sandoval aware and gives verbal order to change from the Vancomycin syringes to Vancomycin capsules 125mg four times daily, dispense 36 capsules. Laury in [facility] retail pharmacy aware and voices no further questions at this time. SStgosia DUFFY CM
[2019-01-05 12:59] VITALS: BP 111/76; PULSE 65; RESP 16; TEMP 36.1; O2SAT 96
--- NOTE | 2019-01-06 18:45 | DS.PCM_ITS ---
Discharge Date and Diagnosis Date of Admission: 01/03/19 Date of Discharge: 01/05/19 - Primary Discharge Diagnosis #1 C. 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 after sustaining a seizure at home, patient has a chronic seizure disorder and she also stated that she developed nausea diarrhea and vomiting 1 week ago. Patient was unable to keep seizure medications down at home. Work-up in the emergency room included labs which revealed the patient was positive for C. difficile toxin, she was given IV Keppra and IV fluids, imaging studies did not reveal any fractures or brain injury. Patient was place d in observation status on PCU, she was placed on oral vancomycin and briefly on IV Flagyl, she was given IV fluids and maintained on seizure medications. Patient had no seizure activity in the hospital. On 01/05/2019, patient was seen and examined: On examination she appeared in good health and spirits. Vital signs as documented. Skin warm and dry and without overt rashes. Neck without JVD. Lungs clear. Heart exam notable for regular rhythm, normal sounds and absence of murmurs, rubs or gallops. Abdomen unremarkable and without evidence of organomegaly, masses, or abdominal aortic enlargement. Extremities nonedematous. Neuro: Cranial nerves II through XII are grossly intact, no focal motor deficits were noted, sensation to light touch and pinprick is intact. Psych: Patient is alert and oriented x3, she does not appear anxious or depressed On 01/05/2019, patient was seen and examined and felt to be in stable condition for discharge home. I advised the patient to have a conversation with her PCP about establishing care with a neurologist concerning her seizure disorder, patient is not had an EEG done in several years and has not been evaluated by neurologist. - Physical Exam Vital Signs Temp Pulse Resp BP Pulse Ox 96.9 F L 65 16 111/76 96 01/05/19 12:59 01/05/19 12:59 01/05/19 12:59 01/05/19 12:59 01/05/19 12:59 Oxygen Flow Rate (L/min) 2 Oxygen Delivery Method Room Air Weight: 89.8 kg Body Mass Index (BMI) 29.9 Finger Stick Blood Glucose 129 Intake and Output for Last 24 Hours 01/04/19 01/05/19 01/06/19 23:59 23:59 23:59 Intake Total 2870 / 2870 350 / 350 Output Total 750 / 750 Balance 2120 / 2120 350 / 350 Microbiology Past 72 Hours 01/03/19 19:58 C. difficile DNA Amplification - Final Stool Toxigenic C. difficile DNA Discharge Activity: Return to Normal Activity Weight Bearing Status: Full weight bearing Home Medications: Medications to take at Discharge Albuterol Sulfate [Ventolin Hfa] 2 puff IH Q6H PRN PRN 09/30/16 Fluticasone 0.05% [Flonase Nasal [place]] 2 spray NASAL BID 09/30/16 Aspirin [Aspirin, Baby] 81 mg PO DAILY@0800 tab.chew 12/31/16 levETIRAcetam tablet [Keppra tablet] 1,000 mg PO BID 09/06/17 Multivitamin [Multiple Vitamins] 1 each PO DAILY 11/08/18 Pantoprazole Sodium [Protonix] 40 mg PO BID 11/08/18 Benzonatate [Tessalon Perle] 200 mg PO TID PRN PRN #20 capsule 12/29/18 Ondansetron [Zofran Odt] 4 mg PO Q8H PRN PRN #10 tablet 12/29/18 Acetaminophen [Tylenol Tablet] 650 mg PO Q6H PRN PRN tablet 01/05/19 Cyclobenzaprine [Flexeril] 5 - 10 mg PO TID PRN PRN #30 tablet 01/05/19 Dicyclomine HCl [Bentyl] 20 mg PO ACHS #60 capsule 01/05/19 Diphenoxylate/Atrop [Lomotil] 1 tablet PO 4X/DAY PRN PRN #20 tablet 01/05/19 Vancomcyin 125mg/5mL PO Liquid 125 mg PO Q6 #36 po.syringe 01/05/19 traMADol [Ultram (G)] 50 - 100 mg PO Q6H PRN PRN 7 Days #50 tablet 01/05/19 Following Prescrptions Were Given to Patient: traMADol [Ultram (G)] 50 - 100 mg PO Q6H PRN PRN 7 Days #50 tablet PRN Reason: Pain Cyclobenzaprine [Flexeril] 5 - 10 mg PO TID PRN PRN #30 tablet PRN Reason: Muscle Spasm Dicyclomine HCl [Bentyl] 20 mg PO ACHS #60 capsule Diphenoxylate/Atrop [Lomotil] 1 tablet PO 4X/DAY PRN PRN #20 tablet PRN Reason: Diarrhea Vancomcyin 125mg/5mL PO Liquid 125 mg PO Q6 #36 po.syringe Primary Care Physician: Amandeep Loredo [Primary Care Provider] - Please follow up with your Primary Care Physician in: in two weeks Disposition: Home Minutes spent on discharge:: 30 Patient Condition:: Stable Medical Necessity - Tobacco Use Smoking Status: Never smoker Meaningful Use Info Meaningful Use Diagnoses (Choose all that apply): None applicable Code Visit OBSV E&M: 19127 Observation care discharge
== END 2019-01-05 11:16 | disposition home or self-care (01) ==
LOC: ED 19:41 → PCU 23:36
PROVIDERS: Admitting Provider Hospitalist; Emergency Provider Emergency Medicine; Family Provider Family Medicine; PCP Family Medicine; Referring Provider Hospitalist; Visit Provider Internal Medicine
DX: A04.72 Enterocolitis due to Clostridium difficile, not specified as recurrent (principal); G40.909 Epilepsy, unspecified, not intractable, without status epilepticus; K31.84 Gastroparesis; M51.36 Other intervertebral disc degeneration, lumbar region; I48.0 Paroxysmal atrial fibrillation; Z79.899 Other long term (current) drug therapy; Z79.82 Long term (current) use of aspirin; F43.12 Post-traumatic stress disorder, chronic; Z79.51 Long term (current) use of inhaled steroids; S16.1XXA Strain of muscle, fascia and tendon at neck level, initial encounter; W19.XXXA Unspecified fall, initial encounter; Y93.9 Activity, unspecified; Y92.9 Unspecified place or not applicable
CPT/HCPCS: 36415; 70450; 72125; 74176; 80048; 80053; 81001; 82962; 83690; 85025; 85027; 87493; 93005; 96361; 96365; 96366; 96367; 96372; 96375; 96376; 97802; 99218; 99285; J7030; A4216; G0378; J2405

== ENCOUNTER 2019-02-01 16:45 | Emergency (ER) | payer MEDICARE, SELFPAY ==
[2019-01-03 23:52] VITALS: BMI 29.9
[2019-02-01 16:47] VITALS: BP 126/86; PULSE 104; RESP 18; TEMP 35.8; O2SAT 95; BMI 30.9
--- NOTE | 2019-02-01 16:54 | RAD_ITS ---
STUDY: X-RAY - LEFT ELBOW REASON FOR EXAM: Female, 49 years old. Shunt arm in car door. Pain. TECHNIQUE: 3 view(s) of the elbow. COMPARISON: None. FINDINGS: Normal visualized humerus, radius and ulna. Normal radiocapitellar and ulnotrochlear articulations. There is no acute fracture, dislocation or destructive osseous pathology. The soft tissue structures are unremarkable. RAD/Elbow min 3 Views IMPRESSION: No acute fracture or dislocation. Electronically Signed: Sundeep Krishnan DO at 17:48 EDT Tel [phone], Service support ,
--- NOTE | 2019-02-01 17:48 | ED.DCSUM_ITS ---
- ER Visit Summary Date of Service: 02/01/19 Chief Complaint: Arm injury History of Present Illness: The patient is a 49 F who states that just prior to arrival family member shut the car door on her arm and the door caught. She notes that the car door was across the upper shoulder in the lower forearm. She went to bend her arm and states she has pain in the elbow and felt something move. She states that since that time she has been unable to straighten her arm. She denies any bleeding or breaks in the skin. She states her left hand is tingling. Physical Examination: Afebrile vital signs are stable Gen: Well-nourished well-developed Head: Normocephalic atraumatic Eyes: Perr[place] EOMI ENT: TMs clear no rhinorrhea moist mucous membranes Neck: Supple no lymphadenopathy no JVD nontender CVS: Regular rate rhythm no murmurs normal S1-S2 Respiratory: No distress clear to auscultation bilaterally chest nontender Abdomen: Soft nontender nondistended normal bowel sounds no masses Back: Nontender Extremity: Patient reports tenderness over the medial lateral aspects of the left elbow. There is no obvious deformity. She keeps the muscles contracted and unable to range it. Skin: Normal color no rash Neuro: alert orientated ?3 CN II-XII intact normal strength sensation Psych: Anxious and occasionally tearful Test Results: X-rays of the elbow were negative for fracture. Emergency Department Course and Treatment: Patient will be discharged home with supportive care. Follow-up with primary care if not improving Impression: 1. Left arm contusion This note was generated with [employer] dictation software. It may contain incorrect words, spelling, and punctuation that were not noted in review of the chart prior to signing ED Disposition - Plan for ED Patient: Disposition: Home or Assisted Living Instructions: ED Contusion Upper Ext Referrals: Amandeep Loredo [Primary Care Provider] - 3-5 Days if not improving
== END 2019-02-01 18:52 | disposition home or self-care (01) ==
PROVIDERS: Emergency Provider Emergency Medicine; Family Provider Family Medicine; PCP Family Medicine
DX: S40.022A Contusion of left upper arm, initial encounter (principal); W23.0XXA Caught, crushed, jammed, or pinched between moving objects, initial encounter; Y93.9 Activity, unspecified; Y92.810 Car as the place of occurrence of the external cause; I48.91 Unspecified atrial fibrillation; E66.9 Obesity, unspecified; Z68.30 Body mass index [BMI] 30.0-30.9, adult; Z79.82 Long term (current) use of aspirin; Z86.73 Personal history of transient ischemic attack (TIA), and cerebral infarction without residual deficits; Z72.0 Tobacco use
CPT/HCPCS: 73080; 99282

== ENCOUNTER 2019-02-02 16:18 | Emergency (ER) | payer MEDICARE, SELFPAY ==
[2019-02-01 16:47] VITALS: BMI 30.9
[2019-02-02 16:19] VITALS: BP 162/93; PULSE 115; RESP 20; TEMP 37.1; O2SAT 93; BMI 31.4
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
[2019-02-02] MEDS: 0.9% Normal Saline 1,000 ML 999 ML IV (17:44)
[2019-02-02] MEDS: Morphine 4 MG/ML Syringe IV (17:45)
[2019-02-02] MEDS: Fluorescein 1 MG STRIP 1 STRIP LEFT EYE (17:45)
[2019-02-02] MEDS: Ondansetron 4 MG/2 ML Vial IV ×2 (17:46→19:07)
[2019-02-02 17:54] LABS: Absolute Lymphocyte Count 2.99 X10^3/ul (0.83-4.51); Absolute Neutrophil Count 5.1 X10^3/uL (2.0-7.7); Basophil# 0.05 X10^3/uL; Basophil% 0.6 % (0-1); Eosinophil# 0.08 X10^3/uL; Eosinophils% 0.9 % (0-5); Hematocrit 46.8 % (37-47); Hemoglobin 15.8 g/dl (12.0-15.0); Lymphocyte # 2.99 X10^3/ul (4.0); Lymphocyte % 33.4 % (19-41); Mean Corp Hgb Conc 33.8 g/gl (32-36); Mean Corpuscular Hgb 31.1 pg (27.0-32.0); Mean Corpuscular Volume 92.1 fL (81-99); Mean Platelet Vol. 10.1 fl (6.2-12.0); Monocyte# 0.68 X10^3/uL; Monocyte% 7.6 % (0-10); Neutrophil # 5.11 X10^3/uL (2.7-7.7); Neutrophil % 57.2 % (47-70); Platelet Count 327 K/mm3 (150-450); Red Blood Count 5.08 M/mm3 (4.2-5.4); White Blood Count 8.9 K/mm3 (4.4-11.0)
[2019-02-02 17:55] LABS: POSITIVE COUNT NO; POSITIVE DIFFERENTIAL NO; POSITIVE MORPHOLOGY NO
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
[2019-02-02 18:10] LABS: Anion Gap 5 (5-15); BUN 13 mg/dL (7-18); BUN/Creat Ratio 15.8 RATIO (10-20); Calcium,Total 9.3 mg/dL (8.5-10.1); Chloride 112 mmol/L (98-107); Creatinine, Serum 0.82 mg/dL (0.55-1.02); EST Glomerular Filtration Rate 78 mL/min (>60); Est Glom Filt Rate - Afr Amer 95 mL/min (>60); Glucose 123 mg/dL (74-106); Potassium 3.8 mmol/L (3.5-5.1); Sodium Level 141 mmol/L (136-145)
[2019-02-02 19:06] VITALS: BP 113/83; PULSE 107; RESP 18; O2SAT 95
[2019-02-02] MEDS: oxyCODONE 5 MG Tablet 10 MG PO (20:17)
[2019-02-02 20:19] VITALS: BP 134/73; PULSE 105; RESP 18; O2SAT 99
== END 2019-02-02 20:23 | disposition home or self-care (01) ==
PROVIDERS: Emergency Provider Emergency Medicine; Family Provider Family Medicine; PCP Family Medicine
DX: S02.2XXA Fracture of nasal bones, initial encounter for closed fracture (principal); H53.2 Diplopia; R07.81 Pleurodynia; M54.2 Cervicalgia; M54.9 Dorsalgia, unspecified; G89.29 Other chronic pain; R10.9 Unspecified abdominal pain; R11.0 Nausea; M79.602 Pain in left arm; E66.9 Obesity, unspecified; H02.846 Edema of left eye, unspecified eyelid; S00.03XA Contusion of scalp, initial encounter; S90.32XA Contusion of left foot, initial encounter; R40.2410 Glasgow coma scale score 13-15, unspecified time; Y04.2XXA Assault by strike against or bumped into by another person, initial encounter; Y93.9 Activity, unspecified; Y92.9 Unspecified place or not applicable; I67.1 Cerebral aneurysm, nonruptured; I69.334 Monoplegia of upper limb following cerebral infarction affecting left non-dominant side; F32.9 Major depressive disorder, single episode, unspecified; K31.84 Gastroparesis; G43.909 Migraine, unspecified, not intractable, without status migrainosus; I48.0 Paroxysmal atrial fibrillation; F43.10 Post-traumatic stress disorder, unspecified; Z96.9 Presence of functional implant, unspecified; Z79.82 Long term (current) use of aspirin; Z79.899 Other long term (current) drug therapy; F17.200 Nicotine dependence, unspecified, uncomplicated
CPT/HCPCS: 70450; 70486; 71101; 72125; 73060; 74177; 80048; 85025; 96361; 96374; 96375; 96376; 99285; J7030; Q9967; J2405

== ENCOUNTER 2019-02-22 14:37 | Emergency (ER) | payer MEDICARE, SELFPAY ==
[2019-02-22 14:38] VITALS: BP 137/102; PULSE 94; RESP 16; TEMP 36.8; O2SAT 96; BMI 31.2
--- NOTE | 2019-02-22 15:03 | EKG12_ITS ---
Test Reason : GEN ILLNESS Blood Pressure : / mmHG Vent. Rate : 092 BPM Atrial Rate : 092 BPM P-R Int : 160 ms QRS Dur : 094 ms QT Int : 376 ms P-R-T Axes : 050 048 062 degrees QTc Int : 464 ms Suspect unspecified pacemaker failure Normal sinus rhythm Possible Left atrial enlargement Incomplete right bundle branch block Borderline ECG Confirmed by FRANKLIN RICHARDSON, MALLORY ([id number]), news assignment editor JOSE ANGEL FONTANA ([id number]) on 02/23/2019 12:29:14 PM Referred By: DELFINA Confirmed By:MALLORY REID MD
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
[2019-02-22] MEDS: Ondansetron 4 MG/2 ML Vial IV (15:19)
[2019-02-22] MEDS: Morphine 4 MG/ML Syringe IV (15:19)
[2019-02-22] MEDS: Mag Hydrox/Al Hydrox/Simeth 30 ML UDC PO (15:19)
[2019-02-22 15:27] LABS: Absolute Lymphocyte Count 2.76 X10^3/ul (0.83-4.51); Absolute Neutrophil Count 5.3 X10^3/uL (2.0-7.7); Basophil# 0.05 X10^3/uL; Basophil% 0.6 % (0-1); Eosinophil# 0.09 X10^3/uL; Hemoglobin 16.3 g/dl (12.0-15.0); Lymphocyte # 2.76 X10^3/ul (4.0); Lymphocyte % 31.9 % (19-41); Mean Corp Hgb Conc 32.6 g/gl (32-36); Mean Corpuscular Hgb 30.7 pg (27.0-32.0); Mean Corpuscular Volume 94.2 fL (81-99); Mean Platelet Vol. 10.1 fl (6.2-12.0); Monocyte# 0.45 X10^3/uL; Monocyte% 5.2 % (0-10); Neutrophil # 5.27 X10^3/uL (2.7-7.7); Neutrophil % 61.1 % (47-70); Platelet Count 303 K/mm3 (150-450); Red Blood Count 5.31 M/mm3 (4.2-5.4); White Blood Count 8.6 K/mm3 (4.4-11.0)
[2019-02-22 15:28] LABS: POSITIVE COUNT NO; POSITIVE DIFFERENTIAL NO; POSITIVE MORPHOLOGY NO
[2019-02-22 15:50] LABS: AST(SGOT) 21 U/L (15-37); Alanine Aminotransfer ALT/SGPT 30 U/L (13-56); Albumin, Serum 4.1 g/dL (3.2-5.0); Alkaline Phosphatase 204 U/L (45-117); Anion Gap 7 (5-15); BUN 14 mg/dL (7-18); BUN/Creat Ratio 16.5 RATIO (10-20); Calcium,Total 9.7 mg/dL (8.5-10.1); Chloride 107 mmol/L (98-107); Creatinine, Serum 0.85 mg/dL (0.55-1.02); EST Glomerular Filtration Rate 76 mL/min (>60); Est Glom Filt Rate - Afr Amer 92 mL/min (>60); Estimated Creatinine Clearance 79.87 ml/min; Globulin 4.2 g/dL (2.2-4.2); Glucose 97 mg/dL (74-106); Lipase 191 U/L (73-393); Potassium 3.7 mmol/L (3.5-5.1); Protein, Total 8.3 g/dL (6.4-8.2); Sodium Level 139 mmol/L (136-145)
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
[2019-02-22 16:35] VITALS: BP 134/85; PULSE 84; RESP 16; O2SAT 98
== END 2019-02-22 16:45 | disposition home or self-care (01) ==
PROVIDERS: Emergency Provider Emergency Medicine; Family Provider Family Medicine; PCP Family Medicine
DX: K29.70 Gastritis, unspecified, without bleeding (principal); Y09 Assault by unspecified means
CPT/HCPCS: 74176; 80053; 83690; 85025; 93005; 96374; 96375; 99283; A4216; J2405

== ENCOUNTER 2019-03-21 17:07 | Observation (INO) | payer MEDICARE, SELFPAY ==
[2019-03-21] VITALS (7 sets, daily range): BP systolic 121–138; BP diastolic 68–99; PULSE 69–88; RESP 13–20; TEMP 36.2–36.6; O2SAT 94–98; BMI 30.4; BMI 31.1; BMI 31.2
--- NOTE | 2019-03-21 17:14 | EKG12_ITS ---
Test Reason : CP Blood Pressure : / mmHG Vent. Rate : 072 BPM Atrial Rate : 072 BPM P-R Int : 154 ms QRS Dur : 098 ms QT Int : 400 ms P-R-T Axes : 057 043 049 degrees QTc Int : 438 ms Normal sinus rhythm Incomplete right bundle branch block Borderline ECG Confirmed by FRANKLIN RICHARDSON, ARI ([id number]), web editor MARQUIS AVILA ([id number]) on 03/23/2019 10:47:38 AM Referred By: Ari Strickland Confirmed By:ARI REID MD
[2019-03-21] MEDS: Aspirin 81 MG TAB.CHEW 324 MG PO (17:25)
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
--- NOTE | 2019-03-21 17:28 | CT_ITS ---
STUDY: CT BRAIN WITHOUT CONTRAST REASON FOR EXAM: Female, 49 years old. Headache. Prior coiling of brain aneurysm. History of seizure, TIA, [place]. RADIATION DOSAGE (If Supplied By Facility): CTDIvol = ( 44.99 ) mGy, DLP = ( 779.24 ) mGycm TECHNIQUE: Transaxial CT imaging of the brain was performed without administration of intravenous contrast material. Individualized dose optimization techniques were used for this CT. COMPARISON: Noncontrast CT brain February 02, 2019. FINDINGS: Normal soft tissue structures. Normal calvarium. Normal size ventricles and extra-axial spaces for the patient's age. Normal white matter tracts of the cerebral hemispheres. Normal basal ganglia and thalami. Normal brainstem. Normal cerebellum. Metal coil cluster again seen near the expected tip of the basilar artery. There is no intracranial hemorrhage. There are no findings of an acute ischemic infarction. Normal visualized paranasal sinuses. CT/Brain/Head without Contrast IMPRESSION: Prior endovascular coiling of basilar tip aneurysm. No acute intracranial pathology. Electronically Signed: Orlando Johnson MD at 18:07 EDT , Service support ,
[2019-03-21 17:36] LABS: Absolute Lymphocyte Count 3.36 X10^3/uL (0.83-4.51); Absolute Neutrophil Count 6.3 X10^3/uL (2.0-7.7); Basophil# 0.07 X10^3/uL; Basophil% 0.7 % (0-1); Eosinophil# 0.03 X10^3/uL; Eosinophils% 0.3 % (0-5); Hematocrit 48.4 % (37-47); Hemoglobin 15.8 g/dL (12.0-15.0); Lymphocyte # 3.36 X10^3/ul (4.0); Mean Corp Hgb Conc 32.6 g/dL (32-36); Mean Corpuscular Hgb 30.7 pg (27.0-32.0); Mean Corpuscular Volume 94.2 fL (81-99); Mean Platelet Vol. 9.8 fl (6.2-12.0); Monocyte# 0.72 X10^3/uL; Monocyte% 6.9 % (0-10); NRBC Flagged by Analyzer 0 % (0-5); Neutrophil # 6.26 X10^3/uL (2.7-7.7); Neutrophil % 59.4 % (47-70); Platelet Count 342 K/mm3 (150-450); RBC Distribution Width CV 12.2 % (11.6-14.6); RBC Distribution Width SD 42.6 fl (35.1-43.9); Red Blood Count 5.14 M/mm3 (4.2-5.4); White Blood Count 10.5 K/mm3 (4.4-11.0)
[2019-03-21 17:55] LABS: Anion Gap 9 (5-15); BUN 12 mg/dL (7-18); BUN/Creat Ratio 15.5 RATIO (10-20); Calcium,Total 9.1 mg/dL (8.5-10.1); Chloride 107 mmol/L (98-107); Creatinine, Serum 0.77 mg/dL (0.55-1.02); EST Glomerular Filtration Rate 84 mL/min (>60); Est Glom Filt Rate - Afr Amer 101 mL/min (>60); Estimated Creatinine Clearance 88.17 ml/min; Glucose 89 mg/dL (74-106); Potassium 3.9 mmol/L (3.5-5.1); Sodium Level 143 mmol/L (136-145)
[2019-03-21] MEDS: 0.9% Normal Saline 1,000 ML 999 ML IV (18:00)
[2019-03-21] MEDS: Ketorolac 30 MG/ML Syringe IV (18:00)
[2019-03-21] MEDS: DiphenhydrAMINE 50 MG/ML Syringe IV (18:00)
[2019-03-21] MEDS: proMETHazine 25 MG/ML Syringe 12.5 MG IV (18:00)
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
--- NOTE | 2019-03-21 18:56 | ED.RN ---
PT AMBULATED TO RESTROOM BY THIS RN. PT C/O CONTINUED CHEST PAIN AND HEADACHE. DR. FLORES INFORMED. NO FURTHER ORDERS AT THIS TIME. WILL CONTINUE TO MONITOR.
--- NOTE | 2019-03-21 21:02 | HP.PCM_ITS ---
Problem List (1) Chest pain Status: Acute Qualifiers: Chest pain type: unspecified Qualified Code(s): R07.9 - Chest pain, unspecified (2) PTSD (post-traumatic stress disorder) Status: Chronic (3) History of lumbar fusion Status: Chronic (4) History of stroke without residual deficits Status: Chronic (5) Depression Status: Chronic (6) Migraine Status: Acute (7) gastric pacemaker Status: Chronic (8) 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 Status: Chronic History of Present Illness Date of Admission: 03/21/19 Chief Complaint: chest pain The patient is a 49 year old F [female patient with a past medical history of WI 12 years ago, smoker for many years, aneurysm status post coil in the brain, resents to the emergency room with chest pain. The patient states she had onset of a headache that has unrelenting for the past 2 days associated with nausea and described as a migraine. She states she was laying in bed and she coughed and felt pain underneath her left breast that radiated straight through her back. In the past few hours the pain has become more significant and she does not associate it with shortness of breath. With the patient's history of WI 12 years ago and ongoing smoking we will admit the patient to progressive care unit for observation and stress testing in the morning. Her headache was nonresponsive to cocktail of Toradol and Benadryl and therefore she will be given 4 mg of morphine in the emergency room. 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) Nondiabetic gastroparesis (Chronic) 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 (Chronic) IT band syndrome (Chronic) Allergies Penicillins Allergy (Verified 03/21/19 17:12) Anaphylaxis propoxyphene napsylate [From Darvocet-N 100] Allergy (Verified 03/21/19 17:12) Rash hydrocodone bitartrate [From Vicodin] Adverse Reaction (Verified 03/21/19 17:12) Itching latex Adverse Reaction (Verified 03/21/19 17:12) blistering of skin venom-honey bee [bee venom (honey bee)] Adverse Reaction (Verified 03/21/19 17:12) Chest tightness PLASTIC TAPE Allergy (Uncoded 03/21/19 17:12) blistering IV contrast Adverse Reaction (Uncoded 03/21/19 17:12) Vomiting Home Medications: Ambulatory Orders Medication Instructions Recorded Albuterol Sulfate [Ventolin Hfa] 2 puff IH Q6H PRN PRN 09/30/16 Fluticasone 0.05% [Flonase Nasal 2 spray NASAL BID 09/30/16 [place]] Aspirin [Aspirin, Baby] 81 mg PO DAILY@0800 tab.chew 12/31/16 levETIRAcetam tablet [Keppra 1,000 mg PO BID 09/06/17 tablet] Multivitamin [Multiple Vitamins] 1 each PO DAILY 11/08/18 Acetaminophen [Tylenol Tablet] 650 mg PO Q6H PRN PRN tablet 01/05/19 Omeprazole 40 mg PO DAILY #30 capsule. 02/22/19 Sucralfate [Carafate] 1 gm PO 4X/DAY #120 tab 02/22/19 Surgical History: appendectomy, cholecystectomy, hysterectomy, - - Multiple abdominal surgeries, including for kidney tumor, hysterectomy, cholecystectomy, endometriosis, brain aneursyms clamped and coiled, gastric pacemaker placement. 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 Denies: Sinus Congestion, Sinus Drainage Cardiovascular: Reports: Chest Pain. Denies: Palpitations Respiratory: Denies: Cough, Shortness of breath at rest, Sputum production Gastrointestinal: Reports: Nausea. Denies: Abdominal Pain, Vomiting Genitourinary: Denies: Dysuria Musculoskeletal: Denies: Joint Pain, Joint Tenderness Skin: Denies: Rash, Wounds Neurological: Denies: Numbness, Tingling, Focal weakness Psychiatric: Reports: Depression. Denies: Anxiety, Homicidal Ideations, Suicidal Ideations Hematologic/ Lymphatic: Denies: Easy Bruising, Easy Bleeding VTE Information - Inpt Only VTE Present on Admission: No VTE Mechan Device Prophylaxis: None VTE Pharm Prophylaxis ordered?: Yes Patient Problems: Active and Suspected Problems Chest pain (Acute) - Physical Exam General: Alert, Oriented x3, Cooperative HEENT: Atraumatic, Normocephalic Neck: Supple Lungs: Clear to auscultation, Normal air movement, No rhonchi, No wheeze, No rales Cardiovascular: Regular rate, Normal S1, Normal S2, No murmurs Abdomen: Bowel Sounds Present, Soft, Non Tender Extremities: No edema Skin: No rashes Musculoskeletal: No Tenderness to Palpation of Joints or Extremities Neurological: Neuro grossly intact Psych/Mental Status: Normal Affect, Appropriate Vital Signs Temp Pulse Resp BP Pulse Ox 97.1 F L 74 14 126/99 H 98 03/21/19 17:08 03/21/19 20:58 03/21/19 20:58 03/21/19 20:58 03/21/19 20:58 Oxygen Delivery Method Room Air Weight: 200 lb Body Mass Index (BMI) 30.4 Finger Stick Blood Glucose 129 Laboratory Tests Past 24 Hrs 03/21/19 03/21/19 17:05 17:05 WBC 10.5 RBC 5.14 Hgb 15.8 H Hct 48.4 H MCV 94.2 MCH 30.7 MCHC 32.6 RDW Std Deviation 42.6 RDW Coeff of Bere 12.2 Plt Count 342 MPV 9.8 Immature Gran % (Auto) 0.700 Neut % (Auto) 59.4 Lymph % (Auto) 32.0 [place] % (Auto) 6.9 Eos % (Auto) 0.3 Baso % (Auto) 0.7 Absolute Neuts (auto) 6.3 Absolute Lymphs (auto) 3.36 Nucleated RBC % 0 Sodium 143 Potassium 3.9 Chloride 107 Carbon Dioxide 27.0 Anion Gap 9 BUN 12 Creatinine 0.77 Estim Creat Clear Calc 88.17 Est GFR (MDRD) Af Amer 101 Est GFR (MDRD) Non-Af 84 BUN/Creatinine Ratio 15.5 Glucose 89 Calcium 9.1 Troponin I < 0.015 Assessment/Plan All Active Problems Chest pain (Acute) C. 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 Chest pain?admit for observation to progressive care unit, cycle cardiac markers, morphine, oxygen, nitroglycerin, aspirin per routine protocol nuclear exercise stress test in a.m. when troponins are negative 2. Migraine headache?continue morphine and Phenergan as needed 3. DVT prophylaxis?low molecular weight heparin 4. Depression continue home medications 5. Aneurysm?CT scan shows stable Code Visit OBSV E&M: 14099 Initial observation care L2
[2019-03-21] MEDS: Morphine 4 MG/ML Syringe IV (21:04)
[2019-03-21] MEDS: levETIRAcetam 1,000 MG Tablet 1000 MG PO (23:18)
[2019-03-21] MEDS: Pantoprazole Sodium 20 MG Tablet PO (23:18)
[2019-03-21] MEDS: Fluticasone 0.05% 1 SPRAY NASAL.SRY 2 SPRAY NASAL (23:18)
[2019-03-21] MEDS: Sucralfate 1 GM Tablet PO (23:18)
[2019-03-22] VITALS (10 sets, daily range): BP systolic 108–127; BP diastolic 70–82; PULSE 67–97; RESP 18–20; TEMP 36.3–36.6; O2SAT 94–97
[2019-03-22] MEDS: Morphine 4 MG/ML Syringe IV ×4 (00:23→13:13)
[2019-03-22] MEDS: proMETHazine 25 MG/ML Syringe 12.5 MG IV (00:23)
[2019-03-22] MEDS: 0.9% NaCl Peripheral Flush Adult/Peds IV ×5 (00:23→13:14)
--- NOTE | 2019-03-22 01:28 | EKG12_ITS ---
Test Reason : Blood Pressure : / mmHG Vent. Rate : 072 BPM Atrial Rate : 072 BPM P-R Int : 174 ms QRS Dur : 094 ms QT Int : 416 ms P-R-T Axes : 028 026 044 degrees QTc Int : 455 ms Suspect unspecified pacemaker failure Normal sinus rhythm RSR' or QR pattern in V1 suggests right ventricular conduction delay Borderline ECG When compared with ECG of 21-MAR-2019 17:02, MANUAL COMPARISON REQUIRED, DATA IS UNCONFIRMED Confirmed by MARIYA JAMES ([id number]), index editor MARQUIS AVILA ([id number]) on 03/25/2019 9:04:28 AM Referred By: Ari Strickland Confirmed By:MARIYA JAMES
[2019-03-22] MEDS: Aspirin 81 MG TAB.CHEW PO (05:18)
[2019-03-22] MEDS: Sucralfate 1 GM Tablet PO ×2 (05:19→11:09)
[2019-03-22] MEDS: Nitroglycerin (INPATIENT USE) 0.4 MG TAB.SUBL SUBLINGUAL ×2 (05:28→05:36)
[2019-03-22 06:21] LABS: Bedside Glucose 95 mg/dL (70-110)
[2019-03-22 07:11] LABS: Absolute Lymphocyte Count 2.75 X10^3/uL (0.83-4.51); Absolute Neutrophil Count 5.9 X10^3/uL (2.0-7.7); Basophil# 0.06 X10^3/uL; Basophil% 0.6 % (0-1); Eosinophil# 0.07 X10^3/uL; Eosinophils% 0.7 % (0-5); Hemoglobin 14.4 g/dL (12.0-15.0); Lymphocyte # 2.75 X10^3/ul (4.0); Lymphocyte % 28.9 % (19-41); Mean Corpuscular Hgb 30.6 pg (27.0-32.0); Mean Corpuscular Volume 95.5 fL (81-99); Mean Platelet Vol. 10.1 fl (6.2-12.0); Monocyte# 0.67 X10^3/uL; NRBC Flagged by Analyzer 0 % (0-5); Neutrophil % 62.2 % (47-70); Platelet Count 318 K/mm3 (150-450); RBC Distribution Width CV 12.4 % (11.6-14.6); RBC Distribution Width SD 43.9 fl (35.1-43.9); Red Blood Count 4.71 M/mm3 (4.2-5.4); White Blood Count 9.5 K/mm3 (4.4-11.0)
[2019-03-22 07:25] LABS: Anion Gap 10 (5-15); BUN 15 mg/dL (7-18); BUN/Creat Ratio 21.5 RATIO (10-20); Calcium,Total 8.8 mg/dL (8.5-10.1); Chloride 110 mmol/L (98-107); EST Glomerular Filtration Rate 94 mL/min (>60); Est Glom Filt Rate - Afr Amer 114 mL/min (>60); Estimated Creatinine Clearance 96.99 ml/min; Glucose 87 mg/dL (74-106); Sodium Level 144 mmol/L (136-145)
--- NOTE | 2019-03-22 09:22 | STRESSREP_ITS ---
Stress Test Report Date: 03-22-19 Procedure: Exercise tolerance test/imaging study Indications: Chest pain Consent: Per the patient Procedure: The patient exercised on a Kenneth protocol for 7 minutes and 30 seconds completing Stage II and 1 minute and 30 seconds of Stage III achieving a peak heart rate of 142 bpm (83 % predicted maximal heart rate) with a peak blood pressure 140/80 mmHg and a peak MET capacity of 9 METs. The baseline ECG demonstrated normal sinus rhythm; right IVCD. The peak exercise ECG demonstrated no obvious ECG changes. There were no cardiac dysrhythmias pretest, during exercise, or recovery. The functional capacity was considered average. There was chest burning behind the nipple followed by coughing in recovery with subsequent resolution to baseline. The examination was discontinued secondary to chest discomfort and dyspnea. Impression: 1. Technically adequate (percent predicted maximal heart rate greater than 85%) exercise tolerance test 2. Peak exercise ECG demonstrated no obvious ECG changes 3. There were no cardiac dysrhythmias pretest, during exercise, or recovery 4. Nuclear images pending Myocardial perfusion imaging study: Technique: The patient was injected with 14.5 mCi of technetium 99m Cardiolite and subsequently rest SPECT Cardiolite nuclear imaging was obtained in the horizontal long, vertical long, and short axis views. The patient exercised on a Kenneth protocol for 7 minutes and 30 seconds completing Stage II and 1 minute and 30 seconds of Stage III achieving a peak heart rate of 142 bpm (83 % predicted maximal heart rate) with a peak blood pressure 140/80 mmHg and a peak MET capacity of 9 METs. The patient was injected with 44.6 mCi of technetium 99m Cardiolite and subsequently stress SPECT Cardiolite nuclear imaging was obtained in the horizontal long, vertical long, and short axis views. A gated Cardiolite study at peak stress was obtained. Interpretation: Rest and stress SPECT Cardiolite nuclear imaging status post realignment, normalization, and attenuation correction, demonstrates the appearance of relative uniform tracer uptake and myocardial perfusion appearing within normal limits. There is end systolic thickening and brightening. The gated Cardiolite study demonstrates myocardial thickening and inward wall motion. The reported LVEF is 61 %. Impression: 1. Rest and stress SPECT Cardiolite nuclear imaging demonstrate relative uniform tracer uptake and myocardial perfusion appearing within normal limits. 2. The gated Cardiolite study reports an LVEF of 61 %. This note was generated with [employer] software. It may contain incorrect words, spelling, and punctuation that were not noted in checking the note before signing.
--- NOTE | 2019-03-22 09:42 | CT_ITS ---
STUDY: CTA CHEST/THORAX REASON FOR EXAM: Female, 49 years old. Shortness of breath. RADIATION DOSAGE (If Supplied By Facility): CTDIvol = ( 13.70 ) mGy, DLP = ( 408.49 ) mGycm TECHNIQUE: The examination was performed with the intravenous administration of 100ML IV Isovue 370. Post-processing of the angiographic images was performed, with multiplanar reformation. No 3D reconstruction. Individualized dose optimization techniques were used for this CT. COMPARISON: Portable AP upright chest x-ray March 21, 2019; CTA chest/thorax December 29, 2018.. FINDINGS: Normal enhancement of the main pulmonary artery and right and left pulmonary arteries. Normal enhancement of the bilateral peripheral pulmonary arteries. There is no demonstrated pulmonary embolism. Normal thoracic aorta and visualized great vessels. There is no demonstrated aortic dissection. Normal heart and pericardium. There is mild calcifications of the left anterior descending coronary artery at the takeoff of the diagonal branch (series 2 image 120). Normal mediastinum. Normal hilar regions. Normal visualized trachea and bronchi. A few small subpleural blebs as well as occasional small centrilobular emphysematous changes are again seen in the lung apices. There is minor subsegmental atelectasis along the medial margin of the right middle lobe. Normal pleura. Normal chest wall structures. Normal osseous structures. Normal visualized upper abdomen. CT/CTA Chest W/WO Contrast IMPRESSION: 1. No demonstrated pulmonary embolism or arterial dissection. 2. Atherosclerotic calcification noted in the left anterior chest surgery coronary artery at the takeoff of the diagonal branch. 3. No pneumonic infiltrate or pleural effusion. No adenopathy. Electronically Signed: Orlando Johnson MD at 13:08 EDT , Service support ,
[2019-03-22] MEDS: Multivitamins,Ther W-Minerals Tablet 1 TABLET PO (09:54)
[2019-03-22] MEDS: Fluticasone 0.05% 1 SPRAY NASAL.SRY 2 SPRAY NASAL (09:54)
[2019-03-22] MEDS: Enoxaparin 40 MG/0.4 ML Syringe SC (09:55)
[2019-03-22] MEDS: levETIRAcetam 1,000 MG Tablet 1000 MG PO (09:55)
[2019-03-22] MEDS: Pantoprazole Sodium 20 MG Tablet PO (09:56)
[2019-03-22] MEDS: DiphenhydrAMINE 50 MG/ML Syringe 25 MG IV (11:09)
[2019-03-22] MEDS: MethylPREDNISolone 125 MG/2 ML Vial 60 MG IV (11:09)
[2019-03-22 12:11] LABS: Bedside Glucose 118 mg/dL (70-110)
--- NOTE | 2019-03-22 12:17 | PCM.PROGNOTE ---
Patient Problems: Active and Suspected Problems Chest pain (Acute) Subjective: ongoing chest pain. This is sharp left sided, radiating into the back with associated SOB. She also has left sided chest tightness. Pain is ongoing worse after stress test (negative). She also c/o RLE swelling, cramping pain in the calf x 2 weeks. Hx blood clots. Hx smoking. Hx recent trauma 1 month prior. Very tearful during interview. - Physical Exam General: Alert, Oriented x3, Cooperative HEENT: Atraumatic, PERRLA, EOMI, Normocephalic Neck: Supple, No JVD, Negative Carotid Bruits Lungs: Clear to auscultation, Normal air movement Cardiovascular: Regular rate, No murmurs Abdomen: Bowel Sounds Present, Soft, Non Tender Extremities: No edema, Capillary Refill Less than 3 Seconds Skin: No rashes, No breakdown Musculoskeletal: No Tenderness to Palpation of Joints or Extremities Neurological: Cranial nerves II-XII grossly intact Psych/Mental Status: Normal Affect, Appropriate, Alert and oriented to time, place, person, mood and affect Vital Signs Temp Pulse Resp BP Pulse Ox 97.4 F L 82 18 124/75 H 94 03/22/19 09:50 03/22/19 11:19 03/22/19 09:50 03/22/19 09:50 03/22/19 09:50 Oxygen Delivery Method Room Air Weight: 205 lb 4.006 oz Body Mass Index (BMI) 31.1 Finger Stick Blood Glucose 129 Intake and Output for Last 24 Hours 03/20/19 03/21/19 03/22/19 23:59 23:59 23:59 Intake Total 450 / 450 Balance 450 / 450 Laboratory Tests Past 24 Hrs 03/21/19 03/21/19 03/21/19 17:05 17:05 22:59 WBC 10.5 RBC 5.14 Hgb 15.8 H Hct 48.4 H MCV 94.2 MCH 30.7 MCHC 32.6 RDW Std Deviation 42.6 RDW Coeff of Bere 12.2 Plt Count 342 MPV 9.8 Immature Gran % (Auto) 0.700 Neut % (Auto) 59.4 Lymph % (Auto) 32.0 [place] % (Auto) 6.9 Eos % (Auto) 0.3 Baso % (Auto) 0.7 Absolute Neuts (auto) 6.3 Absolute Lymphs (auto) 3.36 Nucleated RBC % 0 Sodium 143 Potassium 3.9 Chloride 107 Carbon Dioxide 27.0 Anion Gap 9 BUN 12 Creatinine 0.77 Estim Creat Clear Calc 88.17 Est GFR (MDRD) Af Amer 101 Est GFR (MDRD) Non-Af 84 BUN/Creatinine Ratio 15.5 Glucose 89 Calcium 9.1 Troponin I < 0.015 < 0.015 03/22/19 03/22/19 03/22/19 01:43 05:15 05:15 WBC 9.5 RBC 4.71 Hgb 14.4 Hct 45.0 MCV 95.5 MCH 30.6 MCHC 32.0 RDW Std Deviation 43.9 RDW Coeff of Bere 12.4 Plt Count 318 MPV 10.1 Immature Gran % (Auto) 0.600 Neut % (Auto) 62.2 Lymph % (Auto) 28.9 [place] % (Auto) 7.0 Eos % (Auto) 0.7 Baso % (Auto) 0.6 Absolute Neuts (auto) 5.9 Absolute Lymphs (auto) 2.75 Nucleated RBC % 0 Sodium 144 Potassium 4.0 Chloride 110 H Carbon Dioxide 24.0 Anion Gap 10 BUN 15 Creatinine 0.70 Estim Creat Clear Calc 96.99 Est GFR (MDRD) Af Amer 114 Est GFR (MDRD) Non-Af 94 BUN/Creatinine Ratio 21.5 H Glucose 87 Calcium 8.8 Troponin I < 0.015 POC Glucose 03/22/19 03/22/19 11:58 06:13 POC Glucose 118 H 95 Medical Necessity - Tobacco Use Smoking Status: Never smoker Assessment/Plan All Active Problems Chest pain (Acute) C. difficile colitis (Acute) Migraine (Acute) Basilar artery aneurysm (Resolved) 1. Chest pain - tele negative, trop neg x 3, negative EKG, negative CXR. Stress negative. Check CTA chest. 2. RLE swelling - if CTA negative obtain RLE U/S for VTE 3. Hx CVA - aneurysm clamped/coiled. CT brain neg. on home baby aspirin 4. Hx PAFib - NSR 5. Depression / Anx / PTSD - home meds 6. Hx Seizures - keppra 7. Chronic back pain - 2/2 spinal fusion 8. Hx Gastroparesis (nondiabetic) - with gastric pacemeaker DVT ppx: lovenox DC planning: r/o VTE This patient was seen by Nraciso Schmidt PA-C under the supervision of Dr. Haynes.
--- NOTE | 2019-03-22 13:31 | VDLE_ITS ---
Reason For Study: Swelling RIGHT GSV is normal. CFV is compressible, spontaneous, phasic, competent and demonstrates normal augmentation. FV is compressible, spontaneous, phasic, competent and demonstrates normal augmentation. POP V is compressible, spontaneous, phasic, competent and demonstrates normal augmentation. T/P Trunk is compressible. PTV is compressible. RT PerV is compressible. Procedure Exam performed portable in patient room. A preliminary report was called and/or faxed to [facility]. Interpretation Summary There is no evidence of right lower extremity deep vein thrombosis. Right great saphenous vein appears patent and compressible segmentally. Ordering Physician: Narciso Schmidt Referring Physician: Amandeep Loredo Performed By: Maren Barragan RVT
--- NOTE | 2019-03-22 14:21 | DCINST_ITS ---
- Discharge Diagnoses Current Active Problems: Current Active and Chronic Problems Chest pain (Acute) You will use the following diet at home:: Cardiac Your food should be the consistency of: Regular Your liquids should be the consistency of: Regular/Thin Allergies/Adverse Reactions: Allergies Penicillins Allergy (Verified 03/21/19 17:12) Anaphylaxis propoxyphene napsylate [From Darvocet-N 100] Allergy (Verified 03/21/19 17:12) Rash hydrocodone bitartrate [From Vicodin] Adverse Reaction (Verified 03/21/19 17:12) Itching latex Adverse Reaction (Verified 03/21/19 17:12) blistering of skin venom-honey bee [bee venom (honey bee)] Adverse Reaction (Verified 03/21/19 17:12) Chest tightness PLASTIC TAPE Allergy (Uncoded 03/21/19 17:12) blistering IV contrast Adverse Reaction (Uncoded 03/21/19 17:12) Vomiting Medications to take at Discharge Albuterol Sulfate [Ventolin Hfa] 2 puff IH Q6H PRN PRN 09/30/16 Fluticasone 0.05% [Flonase Nasal [place]] 2 spray NASAL BID 09/30/16 Aspirin [Aspirin, Baby] 81 mg PO DAILY@0800 tab.chew 12/31/16 levETIRAcetam tablet [Keppra tablet] 1,000 mg PO BID 09/06/17 Sucralfate [Carafate] 1 gm PO 4X/DAY #120 tab 02/22/19 Gabapentin [Neurontin] 300 mg PO QHS 03/21/19 Multivit-Min/Iron/Folic/Lutein [Centrum Silver Women Tablet] 1 tab PO DAILY 03/21/19 Omeprazole 20 mg PO BID 03/21/19 Oxycodone HCl/Acetaminophen [Percocet 5-325] 1 tab PO BID PRN PRN 03/21/19 Primary Care Physician: Amandeep Loredo [Primary Care Provider] - Please follow up with your Primary Care Physician in: 1-2 weeks Test Results: Test results from this visit will be discussed in further detail at your follow- up appointment, if applicable. Proposed Discharge Date: 03/22/19
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
== END 2019-03-22 14:22 | disposition home or self-care (01) ==
LOC: ED 17:35 → PCU 03-22 06:19
PROVIDERS: Admitting Provider Family Medicine; Emergency Provider Emergency Medicine; Family Provider Family Medicine; PCP Family Medicine; Referring Provider Family Medicine; Visit Provider Internal Medicine
DX: R07.89 Other chest pain (principal); I25.10 Atherosclerotic heart disease of native coronary artery without angina pectoris; I25.2 Old myocardial infarction; F32.9 Major depressive disorder, single episode, unspecified; F43.12 Post-traumatic stress disorder, chronic; I48.0 Paroxysmal atrial fibrillation; G43.909 Migraine, unspecified, not intractable, without status migrainosus; R29.810 Facial weakness; R06.09 Other forms of dyspnea; K31.84 Gastroparesis; G40.909 Epilepsy, unspecified, not intractable, without status epilepticus; Z86.73 Personal history of transient ischemic attack (TIA), and cerebral infarction without residual deficits; Z85.528 Personal history of other malignant neoplasm of kidney; Z86.718 Personal history of other venous thrombosis and embolism; Z98.1 Arthrodesis status; Z79.899 Other long term (current) drug therapy; Z79.82 Long term (current) use of aspirin; Z79.51 Long term (current) use of inhaled steroids; G89.29 Other chronic pain
CPT/HCPCS: 36415; 70450; 71045; 71275; 78452; 80048; 82962; 84484; 85025; 93005; 93017; 93971; 96361; 96372; 96374; 96375; 96376; 99218; 99285; A9500; J7030; Q9967; A4216; G0378

== ENCOUNTER 2019-03-23 15:03 | Day surgery (SDC) | payer MEDICARE, SELFPAY ==
[2019-03-21 22:41] VITALS: BMI 31.1
[2019-03-23] VITALS (13 sets, daily range): BP systolic 111–160; BP diastolic 72–117; PULSE 65–102; RESP 16–22; TEMP 36.3–36.6; O2SAT 89–100; BMI 30.4
--- NOTE | 2019-03-23 15:30 | NURSING ---
DR BINDU FLORES
--- NOTE | 2019-03-23 15:32 | NURSING ---
DR Nicole TEJEDA
--- NOTE | 2019-03-23 15:32 | ED.VISSUMM ---
- ER Visit Summary Date of Service: 03/23/19 Chief Complaint: Meat stuck in her esophagus History of Present Illness: The patient is a 49 F history of reportedly a prior CVA, CAD, SD, prior renal CA resected and a prior clip aneurysm. Patient states she had meat earlier today got stuck in her throat. She is been able to cough some of it up but is unable to swallow. Denies any trouble breathing. Has had prior symptoms. Has had a prior endoscopy. Physical Examination: Middle-aged female no acute distress. Vital signs are stable afebrile. Pulse ox 90% on room air no hypoxia. She is anxious. HEENT exam unremarkable. Neck nontender. Lungs clear to auscultation. Heart regular rhythm no murmur. Abdomen soft nontender. Extremities moves all 4. Neurologically he is awake and alert moving all 4 extremities. Test Results: None Emergency Department Course and Treatment: IV placed. Patient on monitor. I spoke to Dr. Bill Beckford on-call for general surgery he will be down to evaluate patient for possible upper endoscopy. Treatment Plan: [] Disposition: [] Impression: Acute esophageal obstruction secondary to food impaction This note was generated with [employer] dictation software. It may contain incorrect words, spelling, and punctuation that were not noted in review of the chart prior to signing ED Disposition - Plan for ED Patient: Referrals: Amandeep Loredo [Primary Care Provider] -
--- NOTE | 2019-03-23 16:04 | NURSING ---
AC called requesting patient be transported to bed 5 KADE for bronch. Pt sent to with ER medic.
--- NOTE | 2019-03-23 16:05 | IMM_PTH ---
PATIENT: ORTIZ YATES LOC: [facility] U#:[id number] AGE/SX: 49/F ROOM: RE03/23/[address]: Dr. Bill Beckford MD : 1970 BED: DIS: 03/23/2019 SPEC #: [id number] RECD: 03/24/19 14:40 STATUS: TYRELL REQ #: [id number] EMMANUEL: 03/23/19 16:[address]: Bill Beckford DEPT: IMMUNOHISTOCHEMISTRY RECD BY: Fabi Ruth ENTERED: 03/24/19 14:41 SP TYPE: IMMUNO OTHR DR: Dr. Amandeep Loredo DO Tissues: B - Stomach, NOS Procedures: H Pylori (initial) PHYSICIAN & INSTITUTION [place] [id number] SPECIMEN INFORMATION: Tissue Source: B - Antral biopsy Clinical Info: Foreign body obstruction Specimen Number: [id number] CPT code: 62700 METHODOLOGY: Deparaffinized sections of prefer/formalin-fixed tissue or PAP/DQ stained slides are incubated with monoclonal/polyclonal antibodies/oligonucleotide probes. Localization is made via biotin free immunoperoxidase method. Appropriate controls are performed and reacted as expected. Results on target cell population are indicated in the following table: RESULTS: ANTIBODY / CLONE RESULT Block B H Pylori (polyclonal) negative These tests were developed and their performance characteristics determined by [facility]. They may not have been cleared or approved by the U.S. Food and Drug Administration. The FDA has determined that such clearance or approval is not necessary. INTERPRETATION: B. Antral biopsy: Negative for Helicobacter pylori organisms. SJ:michele 03/25/19
--- NOTE | 2019-03-23 16:05 | EGD_PTH ---
PATIENT: ORTIZ YATES LOC: [facility] [place] U#:[id number] AGE/SX: 49/F ROOM: RE03/23/[address]: Dr. Bill Beckford MD : 1970 BED: DIS: 03/23/2019 SPEC #: [id number] RECD: 03/24/19 09:36 STATUS: TYRELL TARYN #: [id number] EMMANUEL: 03/23/19 16:[address]: Bill Beckford DEPT: SURGICAL PATHOLOGY RECD BY: Lowell Garcia ENTERED: 03/24/19 09:37 SP TYPE: EGD BIOPSY OTHR DR: Dr. Amandeep Loredo DO Tissues: A - Duodenum, NOS B - Gastric mucous membrane C - Gastric mucous membrane Procedures: Special Stain Group II Surgery Specimen Level IV Alcian Blue/PAS (control) HEADER OPERATION: EGD ([facility] [place] PRE-OP DIAGNOSIS: Foreign body obstruction TISSUE SUBMITTED: A - Duodenal biopsy, B - Antral biopsy for H. pylori and path, C - EG junction biopsy MICROSCOPIC DIAGNOSIS A. Duodenal biopsy: Fragments of duodenal mucosa with mild congestion, hemorrhage and Glenn gland hyperplasia. B. Antral biopsy: Mild gastritis. See microscopic description and comment. C. EG junction, biopsy: A fragment of gastroesophageal mucosa with minimal chronic inflammation. Intestinal metaplasia (goblet cell metaplasia) is not identified. See comment. SJ:rg 03/25/19 COMMENT B. The results of immunohistochemistry for Helicobacter pylori will be reported separately ([id number]). C. The specimen predominantly consists of squamous epithelium. Alcian blue/PAS stain with matched control is used in the evaluation of the specimen. MICROSCOPIC DESCRIPTION Slides are reviewed. B. The specimen shows fragments of gastric mucosa with chronic inflammatory cell infiltrates in the lamina propria consisting of lymphocytes and plasma cells, consistent with mild chronic gastritis. GROSS DESCRIPTION A - Received in fixative is one container labeled with the patient's name and designated duodenal biopsy. The specimen consists of two irregular fragments of light champion soft tissue that in aggregate measure 0.4 x 0.2 x 0.1 cm. The specimen is totally submitted in one cassette. B - Received in fixative is one container labeled with the patient's name and designated antral biopsy. The specimen consists of one irregular fragment of light champion soft tissue that measures 0.3 x 0.2 x 0.1 cm. The specimen is totally submitted in one cassette. C - Received in fixative is one container labeled with the patient's name and designated EG junction biopsy. The specimen consists of one irregular fragment of light champion soft tissue that measures 0.4 x 0.2 x 0.1 cm. The specimen is totally submitted in one cassette. / SJ:rg 03/24/19 TC:3 CPT: 10996 x3, 02001
--- NOTE | 2019-03-23 16:26 | PCM.HP.STD ---
Problem List (1) Esophageal obstruction due to food impaction Status: Acute History of Present Illness Date of Admission: 03/23/19 The patient is a 49 year old F who presented to the emergency room earlier today with complaint of steak esophageal obstruction. She states that she has never previously had a food foreign body obstruction of her esophagus that required emergency treatment. Her surveillance systems analyst is at [facility]. She has a gastric pacemaker in place. She states that she has had no less than 3 previous upper endoscopies with dilatation. The most recent somewhere in 2017. She was just discharged from the [facility] yesterday with complaints of chest pain. She was placed with a CTA of the chest and a stress test without acute finding. The patient was deemed to be quite stressed. The patient absolutely is adamant that she is absolutely unable to swallow any type of liquid. She states that she cannot bring the item back up. She states that in the past she had to have an NG tube placed to dislodge a food bolus. 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) Nondiabetic gastroparesis (Chronic) 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 (Chronic) IT band syndrome (Chronic) Allergies Penicillins Allergy (Verified 03/21/19 17:12) Anaphylaxis propoxyphene napsylate [From Darvocet-N 100] Allergy (Verified 03/21/19 17:12) Rash hydrocodone bitartrate [From Vicodin] Adverse Reaction (Verified 03/21/19 17:12) Itching latex Adverse Reaction (Verified 03/21/19 17:12) blistering of skin venom-honey bee [bee venom (honey bee)] Adverse Reaction (Verified 03/21/19 17:12) Chest tightness PLASTIC TAPE Allergy (Uncoded 03/21/19 17:12) blistering IV contrast Adverse Reaction (Uncoded 03/21/19 17:12) Vomiting Home Medications: Ambulatory Orders Medication Instructions Recorded Albuterol Sulfate [Ventolin Hfa] 2 puff IH Q6H PRN PRN 09/30/16 Fluticasone 0.05% [Flonase Nasal 2 spray NASAL BID 09/30/16 [place]] Aspirin [Aspirin, Baby] 81 mg PO DAILY@0800 tab.chew 12/31/16 levETIRAcetam tablet [Keppra 1,000 mg PO BID 09/06/17 tablet] Sucralfate [Carafate] 1 gm PO 4X/DAY #120 tab 02/22/19 Gabapentin [Neurontin] 300 mg PO QHS 03/21/19 Multivit-Min/Iron/Folic/Lutein 1 tab PO DAILY 03/21/19 [Centrum Silver Women Tablet] Omeprazole 20 mg PO BID 03/21/19 Oxycodone HCl/Acetaminophen 1 tab PO BID PRN PRN 03/21/19 [Percocet 5-325] Surgical History: appendectomy, cholecystectomy, hysterectomy, - - Multiple abdominal surgeries, including for kidney tumor, hysterectomy, cholecystectomy, endometriosis, brain aneursyms clamped and coiled, gastric pacemaker placement. 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 MORTGAGE PROTECTION SPECIALIST History: No pertinent MORTGAGE PROTECTION SPECIALIST history Smoking Status: Current some day smoker - *Family History Maternal History Items: Diabetes Paternal History Items: Heart Disease Review of Systems Constitutional: Denies: Anorexia HEENT: Reports: Difficulty Swallowing Cardiovascular: Denies: Chest Pain Respiratory: Denies: Hemoptysis Gastrointestinal: Denies: Abdominal Pain Psychiatric: Reports: Anxiety Endocrine: Denies: Change in Body Habitus VTE Information - Inpt Only VTE Present on Admission: No Patient Problems: Active and Suspected Problems Esophageal obstruction due to food impaction (Acute) - Physical Exam General: Alert, Oriented x3, Cooperative, No apparent distress HEENT: Atraumatic Neck: Supple Lungs: Clear to auscultation Cardiovascular: Regular rate, Regular Rhythm Abdomen: Bowel Sounds Present, Soft, Non Tender, Non-Distended Extremities: No Calf Tenderness Vital Signs Temp Pulse Resp BP Pulse Ox 97.9 F 102 H 22 H 128/102 H 98 03/23/19 15:06 03/23/19 15:06 03/23/19 15:06 03/23/19 15:06 03/23/19 15:06 Oxygen Delivery Method Room Air Weight: 200 lb Body Mass Index (BMI) 30.4 Finger Stick Blood Glucose 129 Assessment/Plan All Active Problems Chest pain (Acute) Esophageal obstruction due to food impaction (Acute) C. difficile colitis (Acute) Migraine (Acute) Basilar artery aneurysm (Resolved) I have discussed with the patient the increased risk associated with urgent upper endoscopy for relief of esophageal food foreign bolus. I discussed the benefits, risks, alternatives. If she has recurrent stricturing it is probably not likely that I will pursue dilatation at the same setting. The patient may have referral back to her primary surveillance systems analyst who lives assisted her with her gastric pacemaker. Because of the increased risk I will utilize monitored anesthesia care. She has had a opportunity to ask and have questions answered. She elects to proceed. Bill Beckford M.D., F.A.C.S.
--- NOTE | 2019-03-23 17:52 | OP.ENDO_ITS ---
03/23/2019 Amandeep Loredo Re : Upper GI endoscopy procedure for Olivia Bass Gertrude This procedure was performed on Saturday, March 23, 2019. My impressions and recommendations are as follows: Impressions : - Mild Schatzki ring. Biopsied. - Small hiatal hernia. - Food at the gastroesophageal junction. - Erythematous mucosa in the antrum. Biopsied. - Normal examined duodenum. Biopsied. - An overtube with cap was used to aid in foreign body removal. Recommendations : - Observe patient in PACU for observation. - Clear liquid diet. - Continue present medications. - Return to my office in 1 week. My findings are described in the full procedure note, which is enclosed. If I can be of further assistance, please feel free to contact me at Doctor phone number(s): Work: . Sincerely, Bill Beckford MD 03/23/2019 5:51:59 PM This report has been signed electronically.
--- NOTE | 2019-03-23 17:54 | DCINST_ITS ---
Discharge Diet: - - Clear liquids as tolerated. No chicken or beef or pork for 3 days. Severe reflux esophagitis identified. Reflux medicines omeprazole 40 mg twice daily for 2 weeks then daily Discharge Activity: May Not Drive - for 1 day Allergies/Adverse Reactions: Allergies Penicillins Allergy (Verified 03/21/19 17:12) Anaphylaxis propoxyphene napsylate [From Darvocet-N 100] Allergy (Verified 03/21/19 17:12) Rash hydrocodone bitartrate [From Vicodin] Adverse Reaction (Verified 03/21/19 17:12) Itching latex Adverse Reaction (Verified 03/21/19 17:12) blistering of skin venom-honey bee [bee venom (honey bee)] Adverse Reaction (Verified 03/21/19 17:12) Chest tightness PLASTIC TAPE Allergy (Uncoded 03/21/19 17:12) blistering IV contrast Adverse Reaction (Uncoded 03/21/19 17:12) Vomiting Medications to take at Discharge Albuterol Sulfate [Ventolin Hfa] 2 puff IH Q6H PRN PRN 09/30/16 Fluticasone 0.05% [Flonase Nasal [place]] 2 spray NASAL BID 09/30/16 levETIRAcetam tablet [Keppra tablet] 1,000 mg PO BID 09/06/17 Sucralfate [Carafate] 1 gm PO 4X/DAY #120 tab 02/22/19 Gabapentin [Neurontin] 300 mg PO QHS 03/21/19 Multivit-Min/Iron/Folic/Lutein [Centrum Silver Women Tablet] 1 tab PO DAILY 03/21/19 Omeprazole 40 mg PO BID 03/21/19 Oxycodone HCl/Acetaminophen [Percocet 5-325] 1 tab PO BID PRN PRN 03/21/19 Primary Care Physician: Amandeep Loredo [Primary Care Provider] - Test Results: Test results from this visit will be discussed in further detail at your follow- up appointment, if applicable. Please Follow Up With: Bill Beckford MD - [phone] When: Call to make an appointment to be seen in about 7 days.
--- NOTE | 2019-03-23 18:01 | RAD_ITS ---
STUDY: X-RAY CHEST REASON FOR EXAM: Female, 49 years old. Chest pain TECHNIQUE: Frontal view COMPARISON: March 21, 2019 FINDINGS: The lungs are clear and expanded. There is no demonstrated pleural abnormality. Normal size heart. Normal mediastinum and kimani. Normal visualized pulmonary arteries. Normal visualized aortic arch and descending thoracic aorta. Normal visualized thoracic spine. Status post surgical fusion of lower cervical levels. Normal visualized ribs, clavicles, and shoulders. There is no demonstrated abnormality of the visualized soft tissue structures of the upper abdomen. RAD/Chest 1 View (Portable) IMPRESSION: Normal x-ray examination of the chest. Electronically Signed: Felipe Crowder DO at 18:25 EDT Tel [phone], Service support ,
== END 2019-03-23 20:41 | disposition home or self-care (01) ==
LOC: ED 16:11 → SDC 16:12 → AC 16:12
PROVIDERS: Emergency Provider Emergency Medicine; Family Provider Family Medicine; PCP Family Medicine; Visit Provider Surgery
PROC: 0DJ08ZZ Inspection of Upper Intestinal Tract, Via Natural or Artificial Opening Endoscopic (ICD-10-PCS; CPT 43235; principal; 2019-03-23 16:00)
DX: T18.128A Food in esophagus causing other injury, initial encounter (principal); X58.XXXA Exposure to other specified factors, initial encounter; K29.70 Gastritis, unspecified, without bleeding; K44.9 Diaphragmatic hernia without obstruction or gangrene; K31.89 Other diseases of stomach and duodenum; I25.10 Atherosclerotic heart disease of native coronary artery without angina pectoris; I25.2 Old myocardial infarction; K21.9 Gastro-esophageal reflux disease without esophagitis; M06.9 Rheumatoid arthritis, unspecified; K31.84 Gastroparesis; I48.0 Paroxysmal atrial fibrillation; G40.909 Epilepsy, unspecified, not intractable, without status epilepticus; Z97.8 Presence of other specified devices; Z79.82 Long term (current) use of aspirin; Z79.899 Other long term (current) drug therapy; Z87.891 Personal history of nicotine dependence; Z86.73 Personal history of transient ischemic attack (TIA), and cerebral infarction without residual deficits
CPT/HCPCS: 43239; 43247; 71045; 88305; 88313; 88342; 99284; J7030; A4216; J2405

== ENCOUNTER 2019-04-20 18:02 | Emergency (ER) | payer MEDICARE, SELFPAY ==
[2019-03-23 15:06] VITALS: BMI 30.4
[2019-04-20 18:03] VITALS: BP 131/83; PULSE 81; RESP 16; TEMP 36.6; O2SAT 95; BMI 30.4
[2019-04-20 18:45] VITALS: PULSE 88; RESP 16
[2019-04-20] MEDS: Albuterol 2.5 MG/3 ML VIAL.NEB. INHALATION (18:46)
[2019-04-20] MEDS: Ondansetron 4 MG/2 ML Vial IV (19:02)
[2019-04-20] MEDS: 0.9% Normal Saline 1,000 ML 1000 ML IV (19:02)
[2019-04-20] MEDS: Ketorolac 15 MG/ML Vial IV (19:02)
--- NOTE | 2019-04-20 19:12 | RAD_ITS ---
STUDY: X-RAY CHEST REASON FOR EXAM: Female, 49 years old. Cough. TECHNIQUE: Frontal and lateral views of the chest. COMPARISON: March 23, 2019. FINDINGS: The lungs are clear and expanded. There is no demonstrated pleural abnormality. Normal size heart. Normal mediastinum and kimani. Normal visualized pulmonary arteries. Normal visualized aortic arch and descending thoracic aorta. Postoperative changes the lower cervical spine. Normal visualized ribs, clavicles, and shoulders. There is no demonstrated abnormality of the visualized soft tissue structures of the upper abdomen. RAD/Chest PA and Lateral IMPRESSION: Normal x-ray examination of the chest. Electronically Signed: Kenny Gupta MD at 19:48 EDT , Service support ,
--- NOTE | 2019-04-20 19:14 | ED.DCSUM_ITS ---
History of Present Illness Chief Complaint: Nausea/Vomiting/Diarrhea Narrative: Patient presenting secondary to generalized illness. Patient's reports that she has been feeling sick over the course of about the last week. She states that it has been associated with a cough and sore throat. She reports that she recen tly found out that a family member who stayed in the house recently tested positive for strep throat. Patient states that in the last 24 hours however she has developed nausea vomiting and diarrhea. She reports that the diarrhea is nonbloody and non-mucousy. No recent hospital admissions or antibiotic exposures. Emesis is nonbloody and nonbilious, and only occasional. Patient states that she has been having some subjective fevers associated with this and generalized malaise. Patient denies any history of asthma or COPD, her cough is nonproductive. Review of systems otherwise negative. Past Medical History - Allergies and Home Meds Allergies/Adverse Reactions: Allergies Penicillins Allergy (Verified 04/20/19 18:05) Anaphylaxis propoxyphene napsylate [From Darvocet-N 100] Allergy (Verified 04/20/19 18:05) Rash hydrocodone bitartrate [From Vicodin] Adverse Reaction (Verified 04/20/19 18:05) Itching latex Adverse Reaction (Verified 04/20/19 18:05) blistering of skin venom-honey bee [bee venom (honey bee)] Adverse Reaction (Verified 04/20/19 18:05) Chest tightness PLASTIC TAPE Allergy (Uncoded 04/20/19 18:05) blistering IV contrast Adverse Reaction (Uncoded 04/20/19 18:05) Vomiting Primary Care Physician: Amandeep Loredo [Primary Care Provider] - Prior records reviewed: Yes Past Medical History: - - Migraines, seizures, gastroparesis Surgical History: appendectomy, cholecystectomy, hysterectomy, - - Multiple abdominal surgeries, including for kidney tumor, hysterectomy, cholecystectomy, endometriosis, brain aneursyms clamped and coiled, gastric pacemaker placement. Smoking Status: Former smoker - Family History Maternal Family History: Reports: Diabetes Paternal Family History: Reports: Heart Disease Review of Systems All systems negative except as indicated General: Reports: Malaise Respiratory: Reports: Cough Gastrointestinal: Reports: Abdominal pain, Nausea, Vomiting, Diarrhea Musculoskeletal: Reports: Myalgias Physical Exam Vital Signs/Narrative: Vital Signs Temp Pulse Resp BP Pulse Ox 04/20/19 18:45 88 16 04/20/19 18:03 97.8 F 81 16 131/83 H 95 General: Well nourished, Well developed, No Acute Distress Head: Normocephalic, Atraumatic Eyes: Perrl, EOMI ENT: Moist mucous membranes, No rhinorrhea Neck: Supple, Nontender Cardiovascular: Regular rate, Regular rhythm, No murmurs Respiratory: No distress, CTA bilaterally, Chest nontender Abdomen: Soft, Tender - Diffuse nonlocalizing with no guarding or rebound Back: Nontender, Normal Inspection Extremities: Nontender, No edema Skin: Normal color, No rash Neurological: Alert, Oriented x3, Cranial nerves II-XII grossly intact, Normal Strength, Normal Sensation Psychological: Normal affect, Normal Mood Diagnostic/Tx/Re-eval Chest X-Ray - ED: - - PA and lateral chest x-ray by radiology and my personal interpretation are negative for infiltrate or acute process - Medical Decision Making Patient presented with a general myriad of symptoms. IV was established laboratory studies were obtained patient was treated symptomatically in the emergency department was also given fluids. CBC and chemistry were found to be unremarkable. Chest x-ray unremarkable. Rapid strep was found to be negative. Patient did have some symptomatic improvement upon repeat evaluation. Patient at this point has stable vital signs, negative work-up, no evidence of bacterial nidus of infection. She does have some wheezing, likely has an element of some bronchitis. I will send the patient home with a course of albuterol as well as Zofran for treatment of her nausea. She was recommended rest and aggressive hydration. Patient was discharged in stable condition. ED Disposition - Plan for ED Patient: Disposition: Home or Assisted Living Diagnosis: Bronchitis Instructions: VOMITING AND DIARRHEA, Nonspecific (Adult), Acute Bronchitis Prescriptions: Albuterol Inhaler [Ventolin Hfa] 1 - 2 puff INHALATION Q4H PRN PRN #1 inhaler PRN Reason: Wheezing Prescription Printed Ondansetron [Zofran Odt] 4 mg PO Q8H PRN PRN #10 tab PRN Reason: Nausea Prescription Printed Referrals: Amandeep Loredo [Primary Care Provider] - 3-5 Days
[2019-04-20 19:17] LABS: Absolute Neutrophil Count 3.1 X10^3/uL (2.0-7.7); Basophil# 0.04 X10^3/uL; Basophil% 0.6 % (0-1); Eosinophil# 0.08 X10^3/uL; Eosinophils% 1.3 % (0-5); Hematocrit 44.5 % (37-47); Hemoglobin 14.7 g/dL (12.0-15.0); Lymphocyte % 41.5 % (19-41); Mean Corpuscular Hgb 31.1 pg (27.0-32.0); Mean Corpuscular Volume 94.1 fL (81-99); Mean Platelet Vol. 9.9 fl (6.2-12.0); Monocyte# 0.45 X10^3/uL; Monocyte% 7.2 % (0-10); NRBC Flagged by Analyzer 0 % (0-5); Neutrophil # 3.06 X10^3/uL (2.7-7.7); Neutrophil % 48.9 % (47-70); Platelet Count 349 K/mm3 (150-450); RBC Distribution Width CV 12.3 % (11.6-14.6); RBC Distribution Width SD 42.8 fl (35.1-43.9); Red Blood Count 4.73 M/mm3 (4.2-5.4); White Blood Count 6.3 K/mm3 (4.4-11.0)
[2019-04-20 19:27] VITALS: BP 102/82; PULSE 79; RESP 16; TEMP 36.4; O2SAT 99
[2019-04-20 19:28] VITALS: BP 102/82; PULSE 68; RESP 18; TEMP 36.4; O2SAT 99
[2019-04-20 19:32] LABS: Anion Gap 5 (5-15); BUN 10 mg/dL (7-18); BUN/Creat Ratio 12.1 RATIO (10-20); Calcium,Total 9.1 mg/dL (8.5-10.1); Chloride 111 mmol/L (98-107); Creatinine, Serum 0.83 mg/dL (0.55-1.02); EST Glomerular Filtration Rate 78 mL/min (>60); Est Glom Filt Rate - Afr Amer 94 mL/min (>60); Glucose 90 mg/dL (74-106); Potassium 3.9 mmol/L (3.5-5.1); Sodium Level 142 mmol/L (136-145)
[2019-04-20 20:00] VITALS: BP 126/72; PULSE 88; RESP 16; TEMP 36.5; O2SAT 98
[2019-04-20 20:18] VITALS: BP 122/70; PULSE 87; RESP 16; TEMP 36.5; O2SAT 99
[2019-04-20] MEDS: Acetaminophen 500 MG Tablet 1000 MG PO (20:40)
== END 2019-04-20 20:54 | disposition home or self-care (01) ==
PROVIDERS: Emergency Provider Emergency Medicine; Family Provider Family Medicine; PCP Family Medicine
DX: J40 Bronchitis, not specified as acute or chronic (principal); R11.2 Nausea with vomiting, unspecified; R19.7 Diarrhea, unspecified; G43.909 Migraine, unspecified, not intractable, without status migrainosus; G40.909 Epilepsy, unspecified, not intractable, without status epilepticus; K31.84 Gastroparesis; Z90.49 Acquired absence of other specified parts of digestive tract; Z79.899 Other long term (current) drug therapy; Z87.891 Personal history of nicotine dependence
CPT/HCPCS: 71046; 80048; 85025; 87880; 94640; 96361; 96374; 96375; 99284; J7030; J2405

== ENCOUNTER 2019-05-05 13:37 | Emergency (ER) | payer MEDICARE, SELFPAY ==
[2019-05-05 13:39] VITALS: BP 129/70; PULSE 89; RESP 18; TEMP 35.6; O2SAT 96; BMI 29.8
--- NOTE | 2019-05-05 14:11 | RAD_ITS ---
STUDY: X-RAY - ABDOMEN/PELVIS REASON FOR EXAM: Female, 49 years old. Chronic back pain. Constipation. TECHNIQUE: Single AP view of the abdomen / pelvis. COMPARISON: None. FINDINGS: A TENS unit is seen overlying the left iliac bone with the electrodes overlying the L2 vertebrae. There is a moderate amount of colonic fecal material. The patient is status post cholecystectomy. The visualized liver, spleen and kidneys are grossly normal in size and morphology. Normal soft tissue structures. The patient status post laminectomy and fusion at the L4-L5 and L5-S1 levels. RAD/Abdomen Single View IMPRESSION: Moderate amount of fecal material is seen in the colon. Electronically Signed: Luiz Neff, at 15:01 EDT , Service support ,
--- NOTE | 2019-05-05 14:11 | RAD_ITS ---
STUDY: X-RAY - LUMBAR SPINE REASON FOR EXAM: Female, 49 years old. Chronic back pain. TECHNIQUE: 3 view(s) of the lumbar spine were obtained. COMPARISON: Comparison is made with prior examination dated October 18, 2018. FINDINGS: Normal lumbar lordosis. There is no substantial scoliosis. There is a normal alignment of the vertebrae. The patient is status post laminectomy and fusion at the L4-L5 and L5-S1 levels. Disc space narrowing at the L4-L5 and L5-S1 levels. Normal vertebral bodies and endplates. There is multi-level degenerative disc disease with multi-level disc space narrowing. A TENS unit is seen with electrodes overlying the L2 vertebrae. RAD/Lumbar Spine 2 or 3 Views IMPRESSION: Status post fusion and laminectomy at the L4-L5 and L5-S1 levels. No significant change. Electronically Signed: Luiz Neff, at 15:03 EDT , Service support ,
[2019-05-05] MEDS: oxyCODONE 5 MG Tablet 10 MG PO (14:18)
[2019-05-05 14:59] LABS: Bacteria 0 SEEN /hpf (None Seen); Mucous, Urine 0 SEEN /hpf (<or=2+); White Blood Cells 0 SEEN /hpf (0-5)
[2019-05-05 15:13] LABS: Color, Urine Yellow (Yellow); Glucose, Dipstick Normal (Normal); Ketone-Dipstick Negative (Negative); Leukocyte Esterase-Dipstick Negative /ul (Negative); Nitrite-Dipstick Negative (Negative); Occult Blood-Urine 25 /ul (Negative); Protein-Dipstick Negative (Negative); Urine Bilirubin Dipstick Negative (Negative); Urine Clarity Clear (Clear); Urine Urobilinogen Normal (Normal)
[2019-05-05 15:21] LABS: Squamous Epithelial Cells - UA 0-5 SEEN /hpf (5-10)
[2019-05-05 15:22] LABS: Red Blood Cells-Urine 0-5 SEEN /hpf (0-5)
[2019-05-05 16:03] VITALS: BP 126/77; PULSE 79; RESP 18; O2SAT 100
--- NOTE | 2019-05-05 16:09 | ED.VIS.GEN ---
History of Present Illness Chief Complaint: Back Informant: Patient Onset: Days Narrative: Reports increasing lower back pain for the past few days rating down her right posterior thigh to her knee. Denies any loss of bowel or bladder control. Reports she is constipated. She sees Dr. Mena pain management reporting getting injections. States she weaned herself off oxycodone with pain management with her last prescription finished 10 days ago. Denies any falls or injuries. States had lumbar surgery a few years back. Had a small bowel movement yesterday. Positive flatus. States called her pain management office told to go to the ED. Prior similar symptoms: Yes Past Medical History - Allergies and Home Meds Allergies/Adverse Reactions: Allergies Penicillins Allergy (Verified 05/05/19 13:39) Anaphylaxis propoxyphene napsylate [From Darvocet-N 100] Allergy (Verified 05/05/19 13:39) Rash hydrocodone bitartrate [From Vicodin] Adverse Reaction (Verified 05/05/19 13:39) Itching latex Adverse Reaction (Verified 05/05/19 13:39) blistering of skin venom-honey bee [bee venom (honey bee)] Adverse Reaction (Verified 05/05/19 13:39) Chest tightness PLASTIC TAPE Allergy (Uncoded 05/05/19 13:39) blistering IV contrast Adverse Reaction (Uncoded 05/05/19 13:39) Vomiting Primary Care Physician: Amandeep Loredo [Primary Care Provider] - Surgical History: appendectomy, cholecystectomy, hysterectomy, - - Multiple abdominal surgeries, including for kidney tumor, hysterectomy, cholecystectomy, endometriosis, brain aneursyms clamped and coiled, gastric pacemaker placement. Smoking Status: Former smoker - Family History Maternal Family History: Reports: Diabetes Paternal Family History: Reports: Heart Disease Review of Systems General: Denies: Chills, Fever, Sweats Eyes: Denies: Visual changes - bilaterally, Diplopia ENT: Denies: Rhinorrhea, Sore throat Cardiovascular: Denies: Chest pain, Palpitations Respiratory: Denies: Dyspnea, Cough, Dyspnea on exertion Gastrointestinal: Reports: Constipation. Denies: Abdominal pain, Nausea, Vomiting, Diarrhea, Melena, Hematochezia Genitourinary: Denies: Dysuria, Hematuria, Frequency Musculoskeletal: Reports: Back pain. Denies: Extremity Pain Skin: Denies: Rash, Wounds Neurological: Denies: Headache, Weakness, Numbness Physical Exam Vital Signs/Narrative: Vital Signs Temp Pulse Resp BP Pulse Ox 05/05/19 16:03 79 18 126/77 H 100 05/05/19 13:39 96.1 F L 89 18 129/70 H 96 Inital Vital Signs reviewed: Yes General: Well nourished, Well developed, - - Tearful, uncomfortable. Head: Normocephalic, Atraumatic Eyes: Perrl, EOMI ENT: Moist mucous membranes, No rhinorrhea Neck: Supple, Nontender Cardiovascular: Regular rate, Regular rhythm, No murmurs Respiratory: No distress, CTA bilaterally, Chest nontender Abdomen: Soft, Nontender, Nondistended, Normal bowel sounds Back: Normal Inspection, - - Lower midline previous scar, tender palpation paralumbar bilaterally. Straight leg test negative bilaterally. 2+ patellar reflex bilaterally. Extremities: Nontender, No edema Skin: Normal color, No rash Neurological: Alert, Oriented x3, Cranial nerves II-XII grossly intact, Normal Strength, Normal Sensation Psychological: Normal affect, Normal Mood Diagnostic/Tx/Re-eval Clinical Impression(s) from Imaging Studies KUB X-Ray 05/05/19 14:11 IMPRESSION: Moderate amount of fecal material is seen in the colon. Electronically Signed: Luiz Neff, at 15:01 EDT , Service support , Lumbar Spine X-Ray 05/05/19 14:11 IMPRESSION: Status post fusion and laminectomy at the L4-L5 and L5-S1 levels. No significant change. Electronically Signed: Luiz Neff, at 15:03 EDT , Service support , Abnormal Lab Results 05/05/19 14:50 Urine Color Yellow Urine Clarity Clear Urine pH 7.0 Ur Specific [place] 1.010 Urine Protein Negative Urine Glucose (UA) Normal Urine Ketones Negative Urine Occult Blood 25 H Urine Nitrite Negative Urine Bilirubin Negative Urine Urobilinogen Normal Ur Leukocyte Esterase Negative Urine RBC 0-5 SEEN Urine WBC 0 SEEN Ur Squamous Epith Cells 0-5 SEEN Urine Bacteria 0 SEEN Urine Mucus 0 SEEN Patient no cauda equina symptoms. Patient treated with oxycodone for her back pain. She is concerned with her urine symptoms and constipation. KUB does confirm moderate amount of stools. - Medical Decision Making Clinical Impression(s) from Imaging Studies KUB X-Ray 05/05/19 14:11 IMPRESSION: Moderate amount of fecal material is seen in the colon. Electronically Signed: Luiz Tawanda, at 15:01 EDT , Service support , Lumbar Spine X-Ray 05/05/19 14:11 IMPRESSION: Status post fusion and laminectomy at the L4-L5 and L5-S1 levels. No significant change. Electronically Signed: Luiz Tawanda, at 15:03 EDT , Service support , Abnormal Lab Results 05/05/19 14:50 Urine Color Yellow Urine Clarity Clear Urine pH 7.0 Ur Specific [place] 1.010 Urine Protein Negative Urine Glucose (UA) Normal Urine Ketones Negative Urine Occult Blood 25 H Urine Nitrite Negative Urine Bilirubin Negative Urine Urobilinogen Normal Ur Leukocyte Esterase Negative Urine RBC 0-5 SEEN Urine WBC 0 SEEN Ur Squamous Epith Cells 0-5 SEEN Urine Bacteria 0 SEEN Urine Mucus 0 SEEN Patient treated oxycodone for her symptoms. She is more concerns or constipation urine symptoms, KUB notes moderate amount of stool urine was negative. Lumbar films also showed stable hardware. She has no cauda equina symptoms. She understands she sees pain management and prescriptions need to be provided by them. I did write prescription for Zanaflex to use as needed. She will call pain management for follow-up continued care. Prescription for MiraLAX for constipation. All questions were answered. ED Disposition - Plan for ED Patient: Disposition: Home or Assisted Living Diagnosis: Constipation, Chronic back pain greater than 3 months duration Instructions: BACK PAIN (Acute or Chronic), CONSTIPATION (Adult) Prescriptions: Polyethylene Glycol 3350 [Miralax] 17 gm PO DAILY #30 packet Tizanidine HCl [Zanaflex] 4 mg PO TID PRN PRN #12 tablet PRN Reason: back pain Referrals: Amandeep Loredo [Primary Care Provider] - Vito Trevino [NON-STAFF] - 2 Days
[2019-05-05 16:35] VITALS: BP 126/77; PULSE 79; RESP 18
== END 2019-05-05 16:36 | disposition home or self-care (01) ==
PROVIDERS: Emergency Provider Emergency Medicine; Family Provider Family Medicine; PCP Family Medicine
DX: K59.00 Constipation, unspecified (principal); M54.5 Low back pain; G89.29 Other chronic pain; Z79.899 Other long term (current) drug therapy; Z87.891 Personal history of nicotine dependence
CPT/HCPCS: 72100; 74018; 81001; 99283

== ENCOUNTER 2019-05-30 16:35 | Emergency (ER) | payer MEDICARE, SELFPAY ==
[2019-05-30 16:36] VITALS: BP 161/118; PULSE 85; RESP 18; TEMP 36.5; O2SAT 98; BMI 29.5
--- NOTE | 2019-05-30 17:12 | RAD_ITS ---
STUDY: X-RAY - THORACIC SPINE REASON FOR EXAM: Female, 49 years old. Pain TECHNIQUE: 3 view(s) of the thoracic spine were obtained. COMPARISON: None. FINDINGS: There is no evidence of fracture or dislocation in the thoracic spine. The vertebral body heights and disc spaces are well-maintained. There are no significant degenerative changes. There is mild dextroscoliosis of the thoracic spine. RAD/Thoracic Spine 2 Views IMPRESSION: No fracture or dislocation in the thoracic spine. Mild thoracic dextroscoliosis. Electronically Signed: Kunal Dickerson, at 17:55 EDT Tel , Service support ,
[2019-05-30] MEDS: diazePAM 5 MG Tablet PO (17:24)
[2019-05-30] MEDS: oxyCODONE 5 MG Tablet PO (17:24)
[2019-05-30] MEDS: Ketorolac 60 MG/2 ML Vial IM (17:24)
--- NOTE | 2019-05-30 17:30 | RAD_ITS ---
STUDY: X-RAY - CERVICAL SPINE REASON FOR EXAM: Female, 49 years old. Pain TECHNIQUE: 3 view(s) of the cervical spine were obtained. COMPARISON: X-Ray Cervical Spine October 18, 2018 FINDINGS: There is no evidence of fracture or dislocation in the cervical spine. The dens is intact. The vertebral body heights and disc spaces are well-maintained. Moderate disc space loss with mild osteophytosis is present from C4 through C7 with fusion of C6-C7. The prevertebral soft tissues are unremarkable. There is no radiodense foreign body. RAD/Cerv Spine 2 or 3 Views IMPRESSION: No fracture or dislocation in the cervical spine. Degenerative and surgical changes described above. Electronically Signed: Kunal Dickerson, at 17:52 EDT Tel , Service support ,
--- NOTE | 2019-05-30 17:44 | ED.VIS.GEN ---
History of Present Illness Chief Complaint: Back Informant: Patient Onset: Today Narrative: Worsening neck and back pain 1 hour prior to arrival. Helping mother off commode when got pulled down. There is no direct falls or injuries. Reports numbness down left arm to the fourth and fifth digit. History of C4-C5 ACDF 15 years ago. Reports pain down left leg posterior thigh, no loss of bowel or bladder control. Pain is in mid thoracic. History of L4-S1 lumbar fusion 3 years ago at [facility] by Dr. Suggs. Saw Dr. José in the past, states was weaned off Percocets and gets injections as needed currently. Pain worse with movement. Needed assistance coming in with daughter. Has tolerated Percocet, Valium, Toradol previously. Prior similar symptoms: Yes Past Medical History - Allergies and Home Meds Allergies/Adverse Reactions: Allergies Penicillins Allergy (Verified 05/30/19 16:39) Anaphylaxis propoxyphene napsylate [From Darvocet-N 100] Allergy (Verified 05/30/19 16:39) Rash hydrocodone bitartrate [From Vicodin] Adverse Reaction (Verified 05/30/19 16:39) Itching latex Adverse Reaction (Verified 05/30/19 16:39) blistering of skin venom-honey bee [bee venom (honey bee)] Adverse Reaction (Verified 05/30/19 16:39) Chest tightness PLASTIC TAPE Allergy (Uncoded 05/30/19 16:39) blistering IV contrast Adverse Reaction (Uncoded 05/30/19 16:39) Vomiting Primary Care Physician: Amandeep Loredo [Primary Care Provider] - Surgical History: appendectomy, cholecystectomy, hysterectomy, - - Multiple abdominal surgeries, including for kidney tumor, hysterectomy, cholecystectomy, endometriosis, brain aneursyms clamped and coiled, gastric pacemaker placement. Smoking Status: Light Smoker (<10/day) - Family History Maternal Family History: Reports: Diabetes Paternal Family History: Reports: Heart Disease Review of Systems General: Denies: Chills, Fever, Sweats Eyes: Denies: Visual changes - bilaterally, Diplopia ENT: Denies: Rhinorrhea, Sore throat Cardiovascular: Denies: Chest pain, Palpitations Respiratory: Denies: Dyspnea, Cough, Dyspnea on exertion Gastrointestinal: Denies: Abdominal pain, Nausea, Vomiting, Diarrhea, Melena, Hematochezia Genitourinary: Denies: Dysuria, Hematuria, Frequency Musculoskeletal: Reports: Neck pain, Back pain. Denies: Extremity Pain Skin: Denies: Rash, Wounds Neurological: Reports: Parasthesia. Denies: Headache, Weakness, Numbness Physical Exam Vital Signs/Narrative: Vital Signs Temp Pulse Resp BP Pulse Ox 05/30/19 16:36 97.7 F L 85 18 161/118 H 98 Inital Vital Signs reviewed: Yes General: Well nourished, Well developed, - - Uncomfortable Head: Normocephalic, Atraumatic Eyes: Perrl, EOMI ENT: Moist mucous membranes, No rhinorrhea Neck: Supple, - - Paraspinal left tenderness on neck. Pain with axial load however no radicular symptoms. Cardiovascular: Regular rate, Regular rhythm, No murmurs Respiratory: No distress, CTA bilaterally, Chest nontender Abdomen: Soft, Nontender, Nondistended, Normal bowel sounds Back: Normal Inspection, - - Midthoracic tenderness no step-offs. Straight leg test was negative bilaterally. 1+ patellar reflex bilaterally. Extremities: Nontender, No edema Skin: Normal color, No rash Neurological: Alert, Oriented x3, Cranial nerves II-XII grossly intact, Normal Strength, Normal Sensation Psychological: Normal affect, Normal Mood Diagnostic/Tx/Re-eval Clinical Impression(s) from Imaging Studies Thoracic Spine X-Ray 05/30/19 17:12 IMPRESSION: No fracture or dislocation in the thoracic spine. Mild thoracic dextroscoliosis. Electronically Signed: Kunal Dickerson, at 17:55 EDT Tel , Service support , Cervical Spine X-Ray 05/30/19 17:30 IMPRESSION: No fracture or dislocation in the cervical spine. Degenerative and surgical changes described above. Electronically Signed: Kunal Dickerson, at 17:52 EDT Tel , Service support , - Medical Decision Making Patient exam concerns for both cervical radiculopathy and back radiculopathy from her thoracic region. No cauda equina symptoms. X-rays of cervical spine and thoracic stable with no fractures or malalignments. She was treated with Toradol, Valium, Percocet in the ED symptoms are more controlled. She will be given short prescription for symptom control. She does not actively see pain management for pain medicines therefore short prescription will be written. She will call her pain management for potential further treatment as an outpatient. All questions were answered. ED Disposition - Plan for ED Patient: Disposition: Home or Assisted Living Diagnosis: Cervical radiculopathy, Back pain Instructions: RADICULOPATHY, Cervical, Back Safety: Lifting Prescriptions: Oxycodone HCl/Acetaminophen [Percocet 5/325] 1 tablet PO Q6H PRN PRN 3 Days #12 tablet PRN Reason: Pain Diazepam [Valium] 5 mg PO Q8 PRN #10 tablet PRN Reason: Muscle Spasm Referrals: Amandeep Loredo [Primary Care Provider] - Mandy Robledo MD [STAFF PHYSICIAN] - 3-5 Days
[2019-05-30] MEDS: Ondansetron ODT 4 MG Tablet 8 MG PO (19:14)
[2019-05-30 19:22] VITALS: BP 113/77; PULSE 79; RESP 14; O2SAT 97
== END 2019-05-30 19:22 | disposition home or self-care (01) ==
PROVIDERS: Emergency Provider Emergency Medicine; Family Provider Family Medicine; PCP Family Medicine
DX: M54.12 Radiculopathy, cervical region (principal); M54.6 Pain in thoracic spine; F17.200 Nicotine dependence, unspecified, uncomplicated; Z97.8 Presence of other specified devices
CPT/HCPCS: 72040; 72070; 96372; 99283

== ENCOUNTER 2019-05-31 19:30 | Observation (INO) | payer MEDICARE, SELFPAY ==
[2019-05-30 16:36] VITALS: BMI 29.5
[2019-05-31 19:31] VITALS: BP 150/95; PULSE 86; RESP 14; TEMP 36.5; O2SAT 96; BMI 31.4
[2019-05-31 19:43] VITALS: TEMP 36.5
--- NOTE | 2019-05-31 19:49 | EKG12_ITS ---
Test Reason : SEIZURE Blood Pressure : / mmHG Vent. Rate : 076 BPM Atrial Rate : 076 BPM P-R Int : 164 ms QRS Dur : 100 ms QT Int : 412 ms P-R-T Axes : 012 029 031 degrees QTc Int : 463 ms Suspect unspecified pacemaker failure Normal sinus rhythm RSR' or QR pattern in V1 suggests right ventricular conduction delay Borderline ECG Confirmed by MARIYA JAMES ([id number]), editor house organ AKILA SIMMONS ([id number] on 06/06/2019 3:34:21 PM Referred By: Nicko Rivas Confirmed By:MARIYA JAMES
--- NOTE | 2019-05-31 19:52 | ED.RN ---
UPON ENTERING THE ROOM WITH IV SUPPLIES THE PT STATED I DON'T FEEL GOOD AND SLUMPED BACK INTO THE BED AND STARTED SHAKING AND GAGGING. STAFF ASSISTED IN SUCTIONING AND GETTING AN IV ACCESS FOR THE PT. NO EMESIS WAS PRESENT IN THE ORAL CAVITY OR SUCTION CANISTER. PT WAS POSTICTAL FOR 1 MINUTE AND BECAME RESPONSIVE AFTER VERBAL STIMULI. PT IS TEARFUL AND TEXTING ON HER PHONE AT THIS TIME. WILL CONTINUE TO MONITOR THE PT.
[2019-05-31] MEDS: Morphine 4 MG/ML Syringe IV (20:04)
[2019-05-31] MEDS: 0.9% Normal Saline 1,000 ML 1000 ML IV (20:04)
[2019-05-31] MEDS: Ondansetron 4 MG/2 ML Vial IV (20:04)
[2019-05-31] MEDS: levETIRAcetam IV 1,000 MG/100 ML BAG 400 MG IV (20:04)
[2019-05-31 20:15] LABS: Absolute Neutrophil Count 3.3 X10^3/uL (2.0-7.7); Basophil# 0.06 X10^3/uL; Basophil% 0.9 % (0-1); Eosinophil# 0.13 X10^3/uL; Hematocrit 45.7 % (37-47); Hemoglobin 14.8 g/dL (12.0-15.0); Lymphocyte % 39.6 % (19-41); Mean Corp Hgb Conc 32.4 g/dL (32-36); Mean Corpuscular Hgb 31.1 pg (27.0-32.0); Mean Platelet Vol. 9.9 fl (6.2-12.0); Monocyte# 0.51 X10^3/uL; Monocyte% 7.8 % (0-10); NRBC Flagged by Analyzer 0 % (0-5); Neutrophil # 3.26 X10^3/uL (2.7-7.7); Neutrophil % 49.7 % (47-70); Platelet Count 268 K/mm3 (150-450); RBC Distribution Width CV 12.4 % (11.6-14.6); RBC Distribution Width SD 44.4 fl (35.1-43.9); Red Blood Count 4.76 M/mm3 (4.2-5.4); White Blood Count 6.6 K/mm3 (4.4-11.0)
[2019-05-31 20:32] LABS: ALB/GLOB Ratio 1.2 RATIO (0.9-2.4); AST(SGOT) 27 U/L (15-37); Alanine Aminotransfer ALT/SGPT 34 U/L (13-56); Albumin, Serum 3.8 g/dL (3.2-5.0); Alkaline Phosphatase 163 U/L (45-117); Anion Gap 4 (5-15); BUN 9 mg/dL (7-18); BUN/Creat Ratio 11.4 RATIO (10-20); Chloride 107 mmol/L (98-107); Creatinine, Serum 0.79 mg/dL (0.55-1.02); EST Glomerular Filtration Rate 82 mL/min (>60); Est Glom Filt Rate - Afr Amer 99 mL/min (>60); Estimated Creatinine Clearance 89.03 ml/min; Globulin 3.2 g/dL (2.2-4.2); Glucose 98 mg/dL (74-106); Lipase 202 U/L (73-393); Potassium 3.6 mmol/L (3.5-5.1); Sodium Level 142 mmol/L (136-145)
[2019-05-31 20:39] VITALS: BP 124/76; PULSE 78; RESP 12; TEMP 36.4; O2SAT 98
--- NOTE | 2019-05-31 21:18 | ED.VISSUMM ---
- ER Visit Summary Date of Service: 05/31/19 Chief Complaint: Seizures History of Present Illness: The patient is a 49 F who has a history of generalized seizures. Her last seizure was over a year ago. She had a seizure earlier today and then upon arrival to the ED. She has generalized shaking with urinary incontinence. She attributes this to her inability to take her seizure medications. She takes Keppra 1 g twice a day. She has been unable to take her medication because of nausea and vomiting. She says her nausea and vomiting stems from chronic back pain. She denies any other neurologic symptoms. Denies fevers. 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 Denies any head injury or head pain. Denies neck pain or other musculoskeletal injury from seizures. Patient was seen yesterday for her pain. She was x-rayed. X-rays were unremarkable. She was discharged. Physical Examination: Afebrile and vital signs unremarkable. Alert and oriented. No acute distress. Good strength and sensation. No focal or lateralizing neurologic abnormalities. Head and neck are atraumatic. Extremities atraumatic. Heart regular. Lungs clear. Abdomen soft and nontender. No guarding or rebound. Normal bowel sounds. Skin appears normal. Test Results: EKG shows sinus rhythm at a rate of 76. CBC, metabolic panel unremarkable. Emergency Department Course and Treatment: Patient was placed on a monitor. Treated with morphine and Zofran and IV fluids. She was treated with an IV dose of Keppra. Patient was monitored with seizure precautions. No further seizure activity. Given her inability to tolerate PO, the hospitalist was contacted to admit for IV medication and symptomatic care. Treatment Plan: As above Disposition: Admission Impression: 1. Intractable nausea vomiting 2. Breakthrough seizure This note was generated with [employer] software. It may contain incorrect words, spelling, and punctuation that were not noted in review of the chart prior to signing ED Disposition - Plan for ED Patient: Referrals: Amandeep Loredo [Primary Care Provider] -
[2019-05-31] MEDS: proMETHazine 25 MG/ML Syringe 6.25 MG IV (22:15)
--- NOTE | 2019-05-31 22:30 | PCM.HP.STD ---
Problem List (1) Generalized seizure disorder Status: Acute (2) C. difficile colitis Status: Inactive (3) Chest pain Status: Resolved Qualifiers: (4) Esophageal obstruction due to food impaction Status: Inactive (5) Migraine Status: Chronic (6) 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 Status: Chronic (7) CVA (cerebral vascular accident) Status: Chronic (8) Depression Status: Chronic (9) Gastroparesis Status: Chronic (10) History of lumbar fusion Status: Chronic (11) History of stroke without residual deficits Status: Chronic (12) IT band syndrome Status: Chronic (13) Nondiabetic gastroparesis Status: Chronic (14) PAF (paroxysmal atrial fibrillation) Status: Chronic (15) PTSD (post-traumatic stress disorder) Status: Chronic (16) Seizure disorder Status: Chronic (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 As per the patient son who is not present during my interview, she had 2 episodes of seizure at home [id number] lasting for about 1 to 2 minutes. Prior to that patient has nausea and vomiting for 2 days and not able to take antiepileptic medications. Seizure episodes were generalized, tonic-clonic in nature with postictal state. Patient also did incontinence during seizure. She denies blurry vision or loss of vision. She also has acute on chronic back pain. She is to follow Dr. Robledo for pain medication but currently pain is well controlled on PRN [id number] Aleve medication. It got worse yesterday when she pulled mother of her fianc?. As per ER physician, she also had seizure episode on upon arrival to ER. Seizure episodes were similar. No new neurological symptoms including weakness, numbness or tingling or loss of vision. 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 (Chronic) Nondiabetic gastroparesis (Chronic) 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 (Chronic) IT band syndrome (Chronic) Allergies Penicillins Allergy (Verified 05/31/19 19:42) Anaphylaxis propoxyphene napsylate [From Darvocet-N 100] Allergy (Verified 05/31/19 19:42) Rash hydrocodone bitartrate [From Vicodin] Adverse Reaction (Verified 05/31/19 19:42) Itching latex Adverse Reaction (Verified 05/31/19 19:42) blistering of skin venom-honey bee [bee venom (honey bee)] Adverse Reaction (Verified 05/31/19 19:42) Chest tightness PLASTIC TAPE Allergy (Uncoded 05/31/19 19:42) blistering IV contrast Adverse Reaction (Uncoded 05/31/19 19:42) Vomiting Home Medications: Ambulatory Orders Medication Instructions Recorded Albuterol Sulfate [Ventolin Hfa] 2 puff IH Q6H PRN PRN 09/30/16 Fluticasone 0.05% [Flonase Nasal 2 spray NASAL BID 09/30/16 [place]] levETIRAcetam tablet [Keppra 1,000 mg PO BID 09/06/17 tablet] Gabapentin [Neurontin] 300 mg PO QHS 03/21/19 Multivit-Min/Iron/Folic/Lutein 1 tab PO DAILY 03/21/19 [Centrum Silver Women Tablet] Omeprazole 40 mg PO BID 14 Days #30 capsule. 03/23/19 Sucralfate [Carafate] 1 gm PO 4X/DAY #120 tab 03/23/19 Albuterol Inhaler [Ventolin Hfa] 1 - 2 puff INHALATION Q4H PRN PRN 04/20/19 #1 inhaler Polyethylene Glycol 3350 [Miralax] 17 gm PO DAILY #30 packet 05/05/19 Diazepam [Valium] 5 mg PO Q8 PRN #10 tab 05/30/19 Oxycodone HCl/Acetaminophen 1 tab PO Q6H PRN PRN 3 Days #12 tab 05/30/19 [Percocet 5/325] Surgical History: appendectomy, cholecystectomy, hysterectomy, - - Multiple abdominal surgeries, including for kidney tumor, hysterectomy, cholecystectomy, endometriosis, brain aneursyms clamped and coiled, gastric pacemaker placement. 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 Denies: Chills, Fever, Weight Change HEENT: Denies: Head Aches, Sinus Congestion, Sinus Drainage Cardiovascular: Denies: Chest Pain, Palpitations Respiratory: Denies: Cough, Shortness of breath at rest, Sputum production Gastrointestinal: Reports: Nausea, Vomiting. Denies: Abdominal Pain, Hematemesis, Hematochezia, Melena Genitourinary: Reports: Incontinence. Denies: Dysuria Musculoskeletal: Reports: Joint Pain - Upper back pain and neck pain, Neck Pain. Denies: Joint Tenderness Skin: Denies: Rash, Wounds Neurological: Reports: Balance problems. Denies: Blurred vision, Double vision, Focal weakness, Numbness, Tingling Psychiatric: Denies: Anxiety, Depression, Homicidal Ideations, Suicidal Ideations Hematologic/ Lymphatic: Denies: Easy Bruising, Easy Bleeding VTE Information - Inpt Only VTE Present on Admission: No VTE Mechan Device Prophylaxis: None VTE Pharm Prophylaxis ordered?: Yes Patient Problems: Active and Suspected Problems Generalized seizure disorder (Acute) - Physical Exam General: Alert, Oriented x3, Cooperative HEENT: Atraumatic, PERRLA, EOMI, Normocephalic Oral: No Gingival or Mucosal Lesions/ Ulcerations, Dry Mucosa Neck: Supple, No JVD, Negative Carotid Bruits Lungs: Clear to auscultation, Normal air movement, No rhonchi, No wheeze, No rales Cardiovascular: Regular rate, Regular Rhythm, Normal S1, Normal S2, No murmurs Abdomen: Bowel Sounds Present, Soft, Non Tender, Non-Distended Extremities: Capillary Refill Less than 3 Seconds, Edema Skin: No rashes, No breakdown Musculoskeletal: No Tenderness to Palpation of Joints or Extremities, Arthritic Changes, Tenderness - Mild tenderness at upper thoracic spine seems mainly muscular. Neurological: Cranial nerves II-XII grossly intact, Deep Tendon Reflexes 2+/4 and Symmetrical, Facial Droop - Chronic left-sided lower facial droop. Mild weakness in left foot plantarflexion mainly reflex as it causes pain in her upper back. Psych/Mental Status: Normal Affect, Appropriate, Anxious Vital Signs Temp Pulse Resp BP Pulse Ox 97.6 F L 78 12 124/76 H 98 05/31/19 20:39 05/31/19 20:39 05/31/19 20:39 05/31/19 20:39 05/31/19 20:39 Oxygen Flow Rate (L/min) 2 Oxygen Delivery Method Nasal Cannula Weight: 212 lb 15.465 oz Body Mass Index (BMI) 31.4 Finger Stick Blood Glucose 129 Intake and Output for Last 24 Hours 05/29/19 05/30/19 05/31/19 23:59 23:59 23:59 Intake Total 400 / 400 Balance 400 / 400 Laboratory Tests Past 24 Hrs 05/31/19 05/31/19 20:08 20:08 WBC 6.6 RBC 4.76 Hgb 14.8 Hct 45.7 MCV 96.0 MCH 31.1 MCHC 32.4 RDW Std Deviation 44.4 H RDW Coeff of Bere 12.4 Plt Count 268 MPV 9.9 Immature Gran % (Auto) 0.000 Neut % (Auto) 49.7 Lymph % (Auto) 39.6 [place] % (Auto) 7.8 Eos % (Auto) 2.0 Baso % (Auto) 0.9 Absolute Neuts (auto) 3.3 Absolute Lymphs (auto) 2.60 Nucleated RBC % 0 Sodium 142 Potassium 3.6 Chloride 107 Carbon Dioxide 31.0 Anion Gap 4 L BUN 9 Creatinine 0.79 Estim Creat Clear Calc 89.03 Est GFR (MDRD) Af Amer 99 Est GFR (MDRD) Non-Af 82 BUN/Creatinine Ratio 11.4 Glucose 98 Calcium 9.0 Total Bilirubin 0.20 AST 27 ALT 34 Alkaline Phosphatase 163 H Total Protein 7.0 Albumin 3.8 Globulin 3.2 Albumin/Globulin Ratio 1.2 Lipase 202 Assessment/Plan All Active Problems Chest pain (Resolved) Generalized seizure disorder (Acute) Basilar artery aneurysm (Resolved) The patient is a 49 year old F with multiple comorbidities including stroke, brain aneurysm status post coil and epilepsy disorder on AEDs was brought into ER for seizure episode at home. As per ER physician, she also had seizure episode on upon arrival to ER. Seizure episodes were similar. No new neurological symptoms including weakness, numbness or tingling or loss of vision. Patient has chronic left upper extremity and bilateral foot drop secondary to prior strokes about 3 times in the past]. 1. Recurrent episodes of breakthrough seizure mainly secondary to inability to take oral medication: Patient is being admitted in PCU. Seizure and fall precaution. P.o. antiepileptic medication changed to IV form. On Keppra 1 g IV every 12 hourly. Ativan 2 mg IV every 4 hourly as needed for seizure. Neurology consult. IV fluid normal saline. CT brain ordered as there is no order from ER. MRI brain probably contraindicated patient has aneurysm clip and gastric pacemaker although ordered for further review by MRI department 2. History of prior stroke with brain aneurysm status post clip and chronic migraine: Patient is on not on aspirin or statin. Exact reason unclear but patient has history of aneurysm gland. She is also known to anticoagulant as she has history of paroxysmal A. fib. Patient follows Dr. Gomez for history of a stroke migraine and seizure disorder 2. Acute on chronic upper back pain with history of lumbar fusion: She used to follow Dr. Robledo for pain medication but currently pain is well controlled on PRN [id number] Aleve medication. It got worse yesterday when she pulled mother of her fianc?. On Percocet as needed as per home medication. Patient came to ER on 05/30 for back pain. See had x-ray C-spine and thoracic spine x-rays which did not show any acute change. 3. Gastroparesis with history of gastric pacemaker and/gastritis: Patient is on PPI and sucralfate. It is unclear whether patient had GI bleed in the past but seems she is not on anticoagulant or antiplatelet probably secondary to gastritis and aneurysm history. 4. Other chronic comorbidities include anxiety, PTSD, esophageal obstruction due to food impaction. Stable. Prophylaxis: Lovenox 40 mg subcu daily. Laboratory Results 05/31/19 20:08: WBC 6.6, RBC 4.76, Hgb 14.8, Hct 45.7, MCV 96.0, MCH 31.1, MCHC 32.4, RDW Std Deviation 44.4 H, RDW Coeff of Bere 12.4, Plt Count 268, MPV 9.9, Immature Gran % (Auto) 0.000, Neut % (Auto) 49.7, Lymph % (Auto) 39.6, [place] % (Auto) 7.8, Eos % (Auto) 2.0, Baso % (Auto) 0.9, Absolute Neuts (auto) 3.3, Absolute Lymphs (auto) 2.60, Nucleated RBC % 0 05/31/19 20:08: Sodium 142, Potassium 3.6, Chloride 107, Carbon Dioxide 31.0, Anion Gap 4 L, BUN 9, Creatinine 0.79, Estim Creat Clear Calc 89.03, Est GFR (MDRD) Af Amer 99, Est GFR (MDRD) Non-Af 82, BUN/Creatinine Ratio 11.4, Glucose 98, Calcium 9.0, Total Bilirubin 0.20, AST 27, ALT 34, Alkaline Phosphatase 163 H, Total Protein 7.0, Albumin 3.8, Globulin 3.2, Albumin/Globulin Ratio 1.2, Lipase 202 Code Visit Inpatient E&M: 41904 Init Hosp L3
[2019-05-31 22:31] VITALS: BMI 30.8
[2019-05-31 22:35] VITALS: BP 132/64; PULSE 74; RESP 16; TEMP 36.6; O2SAT 97
[2019-05-31 22:41] VITALS: PULSE 80
[2019-05-31 22:45] VITALS: BMI 30.8
[2019-05-31 22:56] VITALS: O2SAT 97
[2019-06-01] VITALS (12 sets, daily range): BP systolic 111–125; BP diastolic 63–73; PULSE 78–97; RESP 16; TEMP 36.2–36.6; O2SAT 92–97
[2019-06-01] MEDS: 0.9% NaCl Peripheral Flush Adult/Peds IV ×11 (00:12→22:34)
[2019-06-01] MEDS: 0.9% Normal Saline 1,000 ML 100 ML IV (00:12)
[2019-06-01 00:36] LABS: Magnesium 2.3 mg/dL (1.6-2.6)
[2019-06-01] MEDS: proCHLORPERazine 10 MG/2 ML Vial 5 MG IV (01:50)
[2019-06-01] MEDS: Morphine 2 MG/ML Syringe IV ×5 (02:21→22:35)
--- NOTE | 2019-06-01 04:38 | NURSING ---
Patient does not want to take her 0700 dose of Carafate. Would like to wait until 1100 dose d/t N/V. She is feeling better and eating ice chips but is afraid if she takes pills too soon she will start to vomit again.
[2019-06-01 06:37] LABS: Anion Gap 4 (5-15); BUN 9 mg/dL (7-18); BUN/Creat Ratio 12.8 RATIO (10-20); Calcium,Total 8.7 mg/dL (8.5-10.1); Chloride 111 mmol/L (98-107); EST Glomerular Filtration Rate 94 mL/min (>60); Est Glom Filt Rate - Afr Amer 113 mL/min (>60); Estimated Creatinine Clearance 100.48 ml/min; Glucose 89 mg/dL (74-106); Potassium 3.7 mmol/L (3.5-5.1); Sodium Level 143 mmol/L (136-145)
[2019-06-01] MEDS: Ondansetron 4 MG/2 ML Vial IV ×2 (08:37→18:42)
[2019-06-01] MEDS: levETIRAcetam IV 1,000 MG/100 ML BAG 400 MG IV ×2 (09:39→21:49)
[2019-06-01] MEDS: Pantoprazole Sodium 40 MG Tablet PO ×2 (09:39→21:50)
[2019-06-01] MEDS: Ketorolac 30 MG/ML Syringe IV (09:40)
--- NOTE | 2019-06-01 10:51 | CT_ITS ---
STUDY: CT THORACIC SPINE WITHOUT CONTRAST REASON FOR EXAM: Female, 49 years old. Radiculopathy, cauda equina syndrome. RADIATION DOSAGE (If Supplied By Facility): CTDIvol = ( 37.48 ) mGy, DLP = ( 1360.56 ) mGycm TECHNIQUE: The patient was scanned in a multi detector CT scanner. High resolution imaging was performed. Images were obtained from C7 to L1. Sagittal and coronal images were reconstructed. Individualized dose optimization techniques were used for this CT. COMPARISON: None. FINDINGS: Normal visualized cervical spine. Normal kyphosis of the thoracic spine. Mild dextroscoliosis. Normal thoracic vertebrae and endplates. Normal disc spaces heights. The soft tissue structures are unremarkable. CT/Spine Thoracic without Contras IMPRESSION: Mild dextroscoliosis but no spinal stenosis or neural foraminal stenosis. Electronically Signed: Salvador Clarke MD at 12:35 EDT Tel , Service support ,
--- NOTE | 2019-06-01 10:51 | CT_ITS ---
STUDY: CT LUMBAR SPINE WITHOUT CONTRAST REASON FOR EXAM: Female, 49 years old. Radiculopathy, cauda equina syndrome. RADIATION DOSAGE (If Supplied By Facility): CTDIvol = ( 40.37 ) mGy, DLP = ( 1334.61 ) mGycm TECHNIQUE: The patient was scanned in a multi detector CT scanner. High resolution transaxial imaging was performed. Images were obtained from T12 to S1. Sagittal and coronal images were reconstructed. Individualized dose optimization techniques were used for this CT. COMPARISON: None FINDINGS: Normal lumbar lordosis. There is no substantial scoliosis. Normal vertebrae of the lumbar spine. L1-2: Normal endplates. Normal disc height and morphology. Normal bilateral facet joints. Normal central canal and bilateral lateral recesses. Normal bilateral intervertebral neural foramina. L2-3: Normal endplates. Normal disc height and morphology. Normal bilateral facet joints. Normal central canal and bilateral lateral recesses. Normal bilateral intervertebral neural foramina. L3-4: Mild broad disc protrusion produces mild spinal stenosis and mild bilateral neural foraminal stenosis. L4-5: Status post posterior decompression and transpedicular fixation with anatomic alignment no spinal stenosis or neural foraminal stenosis. L5-S1: Status post posterior decompression transpedicular fixation with anatomic alignment and no spinal stenosis or neural foraminal stenosis. Normal visualized paraspinous soft tissue structures. CT/Spine Lumbar without Contrast IMPRESSION: Status post transpedicular fixation from L4 through S1 with mild degenerative disc disease at L3/L4. Electronically Signed: Salvador Clarke MD at 12:37 EDT Tel , Service support ,
--- NOTE | 2019-06-01 10:57 | CT_ITS ---
STUDY: CT CERVICAL SPINE WITHOUT CONTRAST REASON FOR EXAM: Female, 49 years old. Radiculopathy, cauda equina syndrome RADIATION DOSAGE (If Supplied By Facility): CTDIvol = ( 24.11 ) mGy, DLP = ( 437.70 ) mGycm TECHNIQUE: High resolution transaxial imaging was performed without contrast material. Sagittal and coronal images were reconstructed. Individualized dose optimization techniques were used for this CT. COMPARISON: None FINDINGS: Normal craniovertebral junction. Normal anterior atlantoaxial articulation. Normal odontoid process. There is reversal of the normal cervical lordosis. Normal vertebral bodies and posterior osseous elements. C2-3: Normal endplates. Normal disc height and morphology. Normal central canal and intervertebral neuroforamina. C3-4: Normal endplates. Normal disc height and morphology. Normal central canal and intervertebral neuroforamina. C4-5: Mild broad disc osteophyte complex and bilateral uncovertebral hypertrophy produces mild spinal stenosis and mild bilateral neural foraminal stenosis. C5-6: Mild broad disc osteophyte complex and right uncovertebral hypertrophy produces mild spinal stenosis and mild right neural foraminal stenosis. C6-7: Status post anterior cervical discectomy and fusion with bony bridging in anatomic alignment with no spinal stenosis or neural foraminal stenosis. C7-T1: Normal endplates. Normal disc height and morphology. Normal central canal and intervertebral neuroforamina. Normal visualized soft tissue structures. CT/Spine Cervical without Contras IMPRESSION: Status post anterior cervical discectomy and fusion at C6/C7 with mild degenerative disc disease at C4/C5 and C5/C6. Electronically Signed: Salvador Clarke MD at 12:32 EDT Tel , Service support ,
[2019-06-01] MEDS: dexAMETHasone 4 MG/ML Vial IV (12:11)
--- NOTE | 2019-06-01 12:45 | PCM.PROGNOTE ---
<Narciso Schmidt - Last Filed: 06/01/19 12:45> Patient Problems: Active and Suspected Problems Generalized seizure disorder (Acute) Seizure (Acute) Subjective: Pt complained of ongoing stabbing spinal pain at the bra line. She complains of loss of urine, inability to have BM, numbness of the whole groin, numbness and tingling in the hands and feet. She currently has 8/10 back pain, some nausea no vomiting this AM. - Physical Exam General: Alert, Oriented x3, Cooperative HEENT: Atraumatic, PERRLA, EOMI, Normocephalic Neck: Supple, No JVD, Negative Carotid Bruits Lungs: Clear to auscultation, Normal air movement Cardiovascular: Regular rate, No murmurs Abdomen: Bowel Sounds Present, Soft, Non Tender Extremities: No edema, Capillary Refill Less than 3 Seconds Skin: No rashes, No breakdown Musculoskeletal: No Tenderness to Palpation of Joints or Extremities Neurological: Cranial nerves II-XII grossly intact Psych/Mental Status: Normal Affect, Appropriate, Alert and oriented to time, place, person, mood and affect Vital Signs Temp Pulse Resp BP Pulse Ox 97.5 F L 84 16 111/63 97 06/01/19 09:36 06/01/19 09:36 06/01/19 09:36 06/01/19 09:36 06/01/19 09:36 Oxygen Flow Rate (L/min) 2 Oxygen Delivery Method Room Air Weight: 208 lb 12.444 oz Body Mass Index (BMI) 30.8 Finger Stick Blood Glucose 129 Intake and Output for Last 24 Hours 05/30/19 05/31/19 06/01/19 23:59 23:59 23:59 Intake Total 666.67 / 666.67 1140 / 1140 Balance 666.67 / 666.67 1140 / 1140 Laboratory Tests Past 24 Hrs 05/31/19 05/31/19 05/31/19 20:08 20:08 20:08 WBC 6.6 RBC 4.76 Hgb 14.8 Hct 45.7 MCV 96.0 MCH 31.1 MCHC 32.4 RDW Std Deviation 44.4 H RDW Coeff of Bere 12.4 Plt Count 268 MPV 9.9 Immature Gran % (Auto) 0.000 Neut % (Auto) 49.7 Lymph % (Auto) 39.6 [place] % (Auto) 7.8 Eos % (Auto) 2.0 Baso % (Auto) 0.9 Absolute Neuts (auto) 3.3 Absolute Lymphs (auto) 2.60 Nucleated RBC % 0 Sodium 142 Potassium 3.6 Chloride 107 Carbon Dioxide 31.0 Anion Gap 4 L BUN 9 Creatinine 0.79 Estim Creat Clear Calc 89.03 Est GFR (MDRD) Af Amer 99 Est GFR (MDRD) Non-Af 82 BUN/Creatinine Ratio 11.4 Glucose 98 Calcium 9.0 Magnesium 2.3 Total Bilirubin 0.20 AST 27 ALT 34 Alkaline Phosphatase 163 H Total Protein 7.0 Albumin 3.8 Globulin 3.2 Albumin/Globulin Ratio 1.2 Lipase 202 06/01/19 05:32 WBC RBC Hgb Hct MCV MCH MCHC RDW Std Deviation RDW Coeff of Bere Plt Count MPV Immature Gran % (Auto) Neut % (Auto) Lymph % (Auto) [place] % (Auto) Eos % (Auto) Baso % (Auto) Absolute Neuts (auto) Absolute Lymphs (auto) Nucleated RBC % Sodium 143 Potassium 3.7 Chloride 111 H Carbon Dioxide 28.0 Anion Gap 4 L BUN 9 Creatinine 0.70 Estim Creat Clear Calc 100.48 Est GFR (MDRD) Af Amer 113 Est GFR (MDRD) Non-Af 94 BUN/Creatinine Ratio 12.8 Glucose 89 Calcium 8.7 Magnesium Total Bilirubin AST ALT Alkaline Phosphatase Total Protein Albumin Globulin Albumin/Globulin Ratio Lipase Medical Necessity - Tobacco Use Smoking Status: Current every day smoker Assessment/Plan All Active Problems Chest pain (Resolved) Generalized seizure disorder (Acute) Seizure (Acute) Basilar artery aneurysm (Resolved) 1. Breakthrough seizure - 2/2 nausea vomiting could not keep PO meds down at home. Improved no vomiting this AM. CT brain negative. No MRI 2/2 aneurysm coil. Neurology following. 2. Intractable back pain - there were concerns for cauda equina given her perineal numbness and incontinence, however CTs of the spine were negative. She did receive IV decadron x1. Continue aggressive pain control. If we can get her walking and able to tolerate PO pills she can be discharged with follow up with pain management - She has had epidurals with Dr. Robledo in the past. Injury is 2/2 being pulled forward suddenly by the person that she was helping stand up. Prior lumbar and cervical fusion. Continue PPI/carafate for nsaid ppx. Uses chronic aleve at home. 3. Prior CVA - chronic LLE weakness. 4. Hx gastroparesis - caution with opiates. Hx of Gastric pacemaker. 5. Hx of PAfib - SR. not on rate control or OAC. DVT ppx: early ambulation DC planning: PTOT. This patient was seen by Narciso Schmidt PA-C under the supervision of Doctor Mikhail. <Karla Elizondo - Last Filed: 06/01/19 15:58> - Physical Exam Vital Signs Temp Pulse Resp BP Pulse Ox 97.5 F L 84 16 111/63 97 06/01/19 09:36 06/01/19 09:36 06/01/19 09:36 06/01/19 09:36 06/01/19 09:36 Oxygen Flow Rate (L/min) 2 Oxygen Delivery Method Room Air Weight: 208 lb 12.444 oz Body Mass Index (BMI) 30.8 Finger Stick Blood Glucose 129 Intake and Output for Last 24 Hours 05/30/19 05/31/19 06/01/19 23:59 23:59 23:59 Intake Total 666.67 / 666.67 1840 / 1840 Balance 666.67 / 666.67 1840 / 1840 Laboratory Tests Past 24 Hrs 05/31/19 05/31/19 05/31/19 20:08 20:08 20:08 WBC 6.6 RBC 4.76 Hgb 14.8 Hct 45.7 MCV 96.0 MCH 31.1 MCHC 32.4 RDW Std Deviation 44.4 H RDW Coeff of Bere 12.4 Plt Count 268 MPV 9.9 Immature Gran % (Auto) 0.000 Neut % (Auto) 49.7 Lymph % (Auto) 39.6 [place] % (Auto) 7.8 Eos % (Auto) 2.0 Baso % (Auto) 0.9 Absolute Neuts (auto) 3.3 Absolute Lymphs (auto) 2.60 Nucleated RBC % 0 Sodium 142 Potassium 3.6 Chloride 107 Carbon Dioxide 31.0 Anion Gap 4 L BUN 9 Creatinine 0.79 Estim Creat Clear Calc 89.03 Est GFR (MDRD) Af Amer 99 Est GFR (MDRD) Non-Af 82 BUN/Creatinine Ratio 11.4 Glucose 98 Calcium 9.0 Magnesium 2.3 Total Bilirubin 0.20 AST 27 ALT 34 Alkaline Phosphatase 163 H Total Protein 7.0 Albumin 3.8 Globulin 3.2 Albumin/Globulin Ratio 1.2 Lipase 202 06/01/19 05:32 WBC RBC Hgb Hct MCV MCH MCHC RDW Std Deviation RDW Coeff of Bere Plt Count MPV Immature Gran % (Auto) Neut % (Auto) Lymph % (Auto) [place] % (Auto) Eos % (Auto) Baso % (Auto) Absolute Neuts (auto) Absolute Lymphs (auto) Nucleated RBC % Sodium 143 Potassium 3.7 Chloride 111 H Carbon Dioxide 28.0 Anion Gap 4 L BUN 9 Creatinine 0.70 Estim Creat Clear Calc 100.48 Est GFR (MDRD) Af Amer 113 Est GFR (MDRD) Non-Af 94 BUN/Creatinine Ratio 12.8 Glucose 89 Calcium 8.7 Magnesium Total Bilirubin AST ALT Alkaline Phosphatase Total Protein Albumin Globulin Albumin/Globulin Ratio Lipase Assessment/Plan Patient seen by Narciso Schmidt PA-C under my supervision Patient was admitted with a complaint of seizures and intractable back pain. Patient was admitted with a complaint of seizure. Patient had intractable back pain after spraining her back; severe back pain led to vomiting and inability to keep her medication down she subsequently had a seizure she could not take antiseizure medication. Back pain progressively worsened and says is complaining of numbness and tingling as well as weakness in the lower extremities and lower back. Due to concerns of possible cauda equina she has CTs of the thoracic, lumbar and cervical spine which was all negative and only showed anterior cerivical discectomy and fusion at C6/7, with mild degenerative disc disease at C4-5, and C5-6, and mild degenerative disc disease at L3/4. She was given IV Decadron due to the consideration of cauda equina syndrome. CT of the brain done was negative and she could have an MRI on account of a history of aneurysm status post coiling. Patient did have a history of intractable back pain and not had epidurals by pain management in the past. Patient seen and examined. She complained of severe back pain and was very uncomfortable. She complained of numbness and tingling in her lower extremities. She was still having nausea nad vomiting. Review of systems was otherwise negative. She is on IV keppra o/e: Vital Signs Height 5 ft 9 in Weight: 208 lb 12.444 oz Weight in Pounds 208.8 lbs Pulse Ox 97 Temperature 97.5 F Pulse Rate 84 Respiratory Rate 16 Blood Pressure [BP] 121/73 Blood Pressure 111/63 Blood Pressure Position [BP] Semi-Fowlers Blood Pressure Position Semi-Fowlers General: Alert, Oriented x3, Cooperative HEENT: Atraumatic, PERRLA, EOMI, Normocephalic Neck: Supple, No JVD, Negative Carotid Bruits Lungs: Clear to auscultation, Normal air movement Cardiovascular: Regular rate, No murmurs Abdomen: Bowel Sounds Present, Soft, Non Tender Extremities: No edema, Capillary Refill Less than 3 Seconds Skin: No rashes, No breakdown Musculoskeletal: No Tenderness to Palpation of Joints or Extremities Neurological: Cranial nerves II-XII grossly intact Psych/Mental Status: Normal Affect, Appropriate, Alert and oriented to time, place, person, mood and affect Plan is to continue with IV Keppra. PT/OT on board. continue aggressive pain treatment. If pain persists, will consult marilyn management. On diazepam, gabapentin, lidocaine patch, morphine and oxycodone. Neurology on board. To transition to PO keppra when pain improves and vomiting resolves. Rest of management as per Narciso Schmidt PA-C's note, which I have reviewed and endorsed. Code Visit OBSV E&M: 37477 Subsequent observation care L3
--- NOTE | 2019-06-01 12:59 | CON.PCM_ITS ---
Problem List (1) Seizure Status: Acute Reason for Consult Date of Consultation: 06/01/19 Reason for Consultation: seizure History of Present Illness: The patient is a 49 year old F with PMH history of right MCA stroke with residu al left sided weakness (per patient but no records available), history of basilar tip aneurysm status post coiling about [address] Jerez, seizure, history of renal mass status post resection no records available, PTSD, gastric pacemaker, history of anterior cervical discectomy and fusion at C6/C7, history of transpedicular fixation from L4-S1 admitted with breakthrough seizures and back pain. Per patient she had a fall about 2 days ago while she was helping her boyfriend's mother and since then she has been having severe mid back and lower back pain along with numbness tingling in the hands and legs and she feels she may be more weaker in the extremities, per patient she had severe nausea and vomiting secondary to the pain and she could not keep her seizure medications down secondary to vomiting and had 2 generalized tonic-clonic seizures which was witnessed by her boyfriend's son yesterday 05/31/2019, along with tongue bite, urinary incontinence and postictal state, patient was unaware of the event, per patient her seizures started about 6 years ago after her basilar tip aneurysm was coiled, and she has been on Keppra 1 g p.o. twice daily and her last seizure was about a year ago. Patient denies any history of atrial fibrillation in the past. At present she is not on aspirin at baseline. Per patient she has severe pain in the mid upper and lower back since the fall about 2 days ago. Also complains that she may be having incontinence and numbness around her genitals. On examination patient is complaining of generalized subjective numbness in the extremities and perineal region but has normal rectal tone. CT C-spine showed anterior cervical discectomy and fusion at C6/C7 with mild degenerative disc disease at C4-C5 and C5-C6. CT thoracic spine not show any spinal stenosis or neuroforaminal stenosis and mild dextroscoliosis. CT lumbar spine show transpedicular fixation from L4-S1 with mild degenerative disc disease at L3/L4. 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 (Chronic) Nondiabetic gastroparesis (Chronic) 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 (Chronic) IT band syndrome (Chronic) Allergies Penicillins Allergy (Verified 05/31/19 19:42) Anaphylaxis propoxyphene napsylate [From Darvocet-N 100] Allergy (Verified 05/31/19 19:42) Rash hydrocodone bitartrate [From Vicodin] Adverse Reaction (Verified 05/31/19 19:42) Itching latex Adverse Reaction (Verified 05/31/19 19:42) blistering of skin venom-honey bee [bee venom (honey bee)] Adverse Reaction (Verified 05/31/19 19:42) Chest tightness PLASTIC TAPE Allergy (Uncoded 05/31/19 19:42) blistering IV contrast Adverse Reaction (Uncoded 05/31/19 19:42) Vomiting Home Medications: Ambulatory Orders Medication Instructions Recorded Albuterol Sulfate [Ventolin Hfa] 2 puff IH Q6H PRN PRN 09/30/16 Fluticasone 0.05% [Flonase Nasal 2 spray NASAL BID 09/30/16 [place]] levETIRAcetam tablet [Keppra 1,000 mg PO BID 09/06/17 tablet] Gabapentin [Neurontin] 300 mg PO QHS 03/21/19 Multivit-Min/Iron/Folic/Lutein 1 tab PO DAILY 03/21/19 [Centrum Silver Women Tablet] Albuterol Inhaler [Ventolin Hfa] 1 - 2 puff INHALATION Q4H PRN PRN 04/20/19 #1 inhaler Diazepam [Valium] 5 mg PO Q8 PRN #10 tab 05/30/19 Oxycodone HCl/Acetaminophen 1 tab PO Q6H PRN PRN 3 Days #12 tab 05/30/19 [Percocet 5/325] Omeprazole 40 mg PO BID 05/31/19 Polyethylene Glycol 3350 [Miralax] 17 gm PO DAILY 05/31/19 Sucralfate [Carafate] 1 gm PO 4X/DAY 05/31/19 Surgical History: appendectomy, cholecystectomy, hysterectomy, - - Multiple abdominal surgeries, including for kidney tumor, hysterectomy, cholecystectomy, endometriosis, brain aneursyms clamped and coiled, gastric pacemaker placement. 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 NUT GRADER History: No pertinent NUT GRADER history Lives: - - with boyfreind Smoking Status: Current every day smoker Alcohol: None Drugs: None - *Family History Maternal History Items: Diabetes Paternal History Items: Heart Disease Review of Systems Constitutional: Reports: - - Complete ROS negative except as documented in HPI Patient Problems: Active and Suspected Problems Generalized seizure disorder (Acute) Seizure (Acute) - Physical Exam General: Alert HEENT: Normocephalic Neck: Supple Lungs: Normal air movement Cardiovascular: Normal S1, Normal S2 Abdomen: Bowel Sounds Present Extremities: No cyanosis Neurological: - - Conscious, alert, CN II 12 grossly intact except chronic left seventh UMN facial palsy, power 5 x 5 right upper and lower extremities, left upper and lower extremity chronic weakness since stroke +4 x 5, examination slightly limited due to severe midthoracic and back pain, subjective decreased sensation both hands and legs per patient, no cerebellar signs, gait deferred, reflexes +++ B/L B/S/T/K/A, no clonus, normal rectal tone Psych/Mental Status: Normal Affect Vital Signs Temp Pulse Resp BP Pulse Ox 97.5 F L 84 16 111/63 97 06/01/19 09:36 06/01/19 09:36 06/01/19 09:36 06/01/19 09:36 06/01/19 09:36 Oxygen Flow Rate (L/min) 2 Oxygen Delivery Method Room Air Weight: 94.7 kg Body Mass Index (BMI) 30.8 Finger Stick Blood Glucose 129 Intake and Output for Last 24 Hours 05/30/19 05/31/19 06/01/19 23:59 23:59 23:59 Intake Total 666.67 / 666.67 1140 / 1140 Balance 666.67 / 666.67 1140 / 1140 Laboratory Tests Past 24 Hrs 05/31/19 05/31/19 05/31/19 20:08 20:08 20:08 WBC 6.6 RBC 4.76 Hgb 14.8 Hct 45.7 MCV 96.0 MCH 31.1 MCHC 32.4 RDW Std Deviation 44.4 H RDW Coeff of Bere 12.4 Plt Count 268 MPV 9.9 Immature Gran % (Auto) 0.000 Neut % (Auto) 49.7 Lymph % (Auto) 39.6 [place] % (Auto) 7.8 Eos % (Auto) 2.0 Baso % (Auto) 0.9 Absolute Neuts (auto) 3.3 Absolute Lymphs (auto) 2.60 Nucleated RBC % 0 Sodium 142 Potassium 3.6 Chloride 107 Carbon Dioxide 31.0 Anion Gap 4 L BUN 9 Creatinine 0.79 Estim Creat Clear Calc 89.03 Est GFR (MDRD) Af Amer 99 Est GFR (MDRD) Non-Af 82 BUN/Creatinine Ratio 11.4 Glucose 98 Calcium 9.0 Magnesium 2.3 Total Bilirubin 0.20 AST 27 ALT 34 Alkaline Phosphatase 163 H Total Protein 7.0 Albumin 3.8 Globulin 3.2 Albumin/Globulin Ratio 1.2 Lipase 202 06/01/19 05:32 WBC RBC Hgb Hct MCV MCH MCHC RDW Std Deviation RDW Coeff of [place] Plt Count MPV Immature Gran % (Auto) Neut % (Auto) Lymph % (Auto) [place] % (Auto) Eos % (Auto) Baso % (Auto) Absolute Neuts (auto) Absolute Lymphs (auto) Nucleated RBC % Sodium 143 Potassium 3.7 Chloride 111 H Carbon Dioxide 28.0 Anion Gap 4 L BUN 9 Creatinine 0.70 Estim Creat Clear Calc 100.48 Est GFR (MDRD) Af Amer 113 Est GFR (MDRD) Non-Af 94 BUN/Creatinine Ratio 12.8 Glucose 89 Calcium 8.7 Magnesium Total Bilirubin AST ALT Alkaline Phosphatase Total Protein Albumin Globulin Albumin/Globulin Ratio Lipase Assessment/Plan All Active Problems Chest pain (Resolved) Generalized seizure disorder (Acute) Seizure (Acute) Basilar artery aneurysm (Resolved) The patient is a 49 year old F with PMH history 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 Jerez, seizure, history of renal mass status post resection no records available, PTSD, gastric pacemaker, history of anterior cervical discectomy and fusion at C6/C7, history of transpedicular fixation from L4-S1 admitted with breakthrough sei zures and back pain. Per patient she had a fall about 2 days ago while she was helping her boyfriend's mother and since then she has been having severe mid back and lower back pain along with numbness tingling in the hands and legs and she feels she may be more weaker in the extremities, per patient she had severe nausea and vomiting secondary to the pain and she could not keep her seizure medications down secondary to vomiting and had 2 generalized tonic-clonic seizures which was witnessed by her boyfriend's son yesterday 05/31/2019, along with tongue bite, urinary incontinence and postictal state, patient was unaware of the event, per patient her seizures started about 6 years ago after her basilar tip aneurysm was coiled, and she has been on Keppra 1 g p.o. twice daily and her last seizure was about a year ago. Patient denies any history of atrial fibrillation in the past. At present she is not on aspirin at baseline. Per patient she has severe pain in the mid upper and lower back since the fall about 2 days ago. Also complains that she may be having incontinence and numbness around her genitals. On examination patient is complaining of generalized subjective numbness in the extremities and perineal region but has normal rectal tone. CT C-spine showed anterior cervical discectomy and fusion at C6/C7 with mild degenerative disc disease at C4-C5 and C5-C6. CT thoracic s pine not show any spinal stenosis or neuroforaminal stenosis and mild dextroscoliosis. CT lumbar spine show transpedicular fixation from L4-S1 with mild degenerative disc disease at L3/L4. Impression Breakthrough seizure Cervical and Lumbar degenerative disc disease-stable Plan -CT C spine/T spine and L spine results reviewed -CT brain nothing acute -MRI brain cannot be done due to gastric pacer -ASA 81 mg PO Once daily for secondary stroke prevention -Continue Keppra 1 g IV BID. -No further seizures since admission -Pain management consult -Seizure precautions discussed in detail. Patient counseled not to drive for 6 months from her this seizure episode -Fall precautions -GI/DVT prophylaxis -PT/OT -Further management of back pain per hospitalist team/pain management -Follow up with neurology as outpatient in 6 weeks -Follow up with Dr. Escobedo for aneurysm management -Please call with questions if any -Thank you for allowing us to participate in patient's care and management This note has been generated using [employer] software. It may contain incorrect words, spellings and punctuations that were not noted in the review of the note prior to signing. Code Visit Inpatient E&M: 20607 Init Hosp L2
[2019-06-01] MEDS: Lidocaine 5% Patch 1 PATCH TOPICAL (14:00)
[2019-06-01] MEDS: diazePAM 5 MG Tablet PO (14:00)
[2019-06-01] MEDS: Fluticasone 0.05% 1 SPRAY NASAL.SRY 2 SPRAY NASAL (21:48)
[2019-06-01] MEDS: Sucralfate 1 GM Tablet PO (21:49)
[2019-06-01] MEDS: Gabapentin 300 MG Capsule PO (21:51)
--- NOTE | 2019-06-01 22:41 | NURSING ---
removed lidoderm patch from pts back.
--- NOTE | 2019-06-01 23:38 | CT_ITS ---
STUDY: CT BRAIN WITHOUT CONTRAST REASON FOR EXAM: Female, 49 years old. SEIZURES X 2 TONIGHT,NAUSEA AND VOMITING X DAYS MAKING PT UNABLE TO TAKE SEIZURE MEDS HX:SEIZURES,MIGRAINES,TIA,BRAIN ANEURYSM WITH COIL RADIATION DOSAGE (If Supplied By Facility): CTDIvol = ( 44.99 ) mGy, DLP = ( 829.85 ) mGycm TECHNIQUE: Transaxial CT imaging of the brain was performed without administration of intravenous contrast material. Individualized dose optimization techniques were used for this CT. COMPARISON: No relevant priors. FINDINGS: Normal soft tissue structures. Normal calvarium. Normal size ventricles and extra-axial spaces for the patient's age. Normal white matter tracts of the cerebral hemispheres. Normal basal ganglia and thalami. Normal brainstem. Normal cerebellum. There is no intracranial hemorrhage. There are no findings of an acute ischemic infarction. Prior endovascular coiling of basilar tip aneurysm. No acute intracranial pathology. Normal visualized paranasal sinuses. CT/Brain/Head without Contrast IMPRESSION: Prior endovascular coiling of basilar tip aneurysm. No acute intracranial pathology. Electronically Signed: Karie Chang, at 0:39 EDT Tel , Service support ,
[2019-06-02] VITALS (12 sets, daily range): BP systolic 120–154; BP diastolic 72–87; PULSE 74–93; RESP 16–20; TEMP 36.1–36.3; O2SAT 93–100
[2019-06-02] MEDS: oxyCODONE 5 MG Tablet PO (03:27)
[2019-06-02] MEDS: Sucralfate 1 GM Tablet PO ×2 (06:08→22:31)
[2019-06-02] MEDS: 0.9% NaCl Peripheral Flush Adult/Peds IV ×8 (07:43→22:34)
[2019-06-02] MEDS: Morphine 2 MG/ML Syringe IV ×3 (07:44→18:30)
[2019-06-02] MEDS: Ondansetron 4 MG/2 ML Vial IV ×2 (07:46→18:30)
--- NOTE | 2019-06-02 08:04 | RAD_ITS ---
STUDY: X-RAY - PELVIS AND LEFT HIP REASON FOR EXAM: Female, 49 years old. Hip pain TECHNIQUE: 3 views of the pelvis and hip. COMPARISON: 11/29/2018 FINDINGS: There is a non-specific bowel gas pattern. Normal visualized soft tissue structures. Normal bilateral iliac wings, sacroiliac joints and visualized sacrum. Normal bilateral superior and inferior pubic rami. Normal pubic symphysis. Normal bilateral ischial tuberosities. Normal visualized femoral head. Normal acetabulum. Normal hip joint. RAD/HIP, UNI W/ Pelvis 2-3 Views IMPRESSION: Normal x-ray examination of the pelvis and hip. Electronically Signed: Salvador Clarke MD at 8:43 EDT Tel , Service support ,
--- NOTE | 2019-06-02 08:15 | NURSING ---
Showed MD Arevalo patient telemetry due to pace spikes from gastric pacemaker - informed MD Elizondo as well that cardiology stated that should not be related.
[2019-06-02] MEDS: levETIRAcetam IV 1,000 MG/100 ML BAG 400 MG IV ×2 (09:02→22:31)
[2019-06-02] MEDS: Lidocaine 5% Patch 1 PATCH TOPICAL (09:02)
[2019-06-02] MEDS: Pantoprazole Sodium 40 MG Tablet PO ×2 (09:03→22:32)
[2019-06-02] MEDS: Polyethylene Glycol 3350 17 GM PACKET PO (09:03)
[2019-06-02] MEDS: diazePAM 5 MG Tablet PO ×2 (09:03→18:29)
--- NOTE | 2019-06-02 09:40 | CASEMGMT ---
CLIVE VALENZUELA NOTE: To room to talk with pt. Introduced self and role of RN NICOLAS. Reviewed BRAN form with pt and questions answered. BRAN form signed by pt, copy made and placed on chart, and original given to pt. Pt made aware if she has any further questions to ask for CM. Pt voices understanding. Susan IRENE RN, CM
--- NOTE | 2019-06-02 12:00 | PCM.PROGNOTE ---
<Mickie Burger - Last Filed: 06/02/19 12:15> Patient Problems: Active and Suspected Problems Generalized seizure disorder (Acute) Seizure (Acute) Subjective: Patient seen and examined. Tearful. Reports severe left hip pain and spasms as well as mid left back pain. She reports she has been incontinent of urine. Denies further nausea, vomiting. - Physical Exam General: Alert, Oriented x3, - - Appears uncomfortable. HEENT: Atraumatic, PERRLA, EOMI, Normocephalic Neck: Supple, No JVD, Negative Carotid Bruits Lungs: Clear to auscultation, Normal air movement Cardiovascular: Regular rate, Regular Rhythm, Normal S1, Normal S2, No murmurs Abdomen: Bowel Sounds Present, Soft, Non Tender, Non-Distended Extremities: No clubbing, No cyanosis, No edema, Capillary Refill Less than 3 Seconds Skin: No rashes, No breakdown Musculoskeletal: - - Left mid back tenderness to palpation. Left hip area muscle spasms, visible. Neurological: Cranial nerves II-XII grossly intact, Neuro grossly intact Psych/Mental Status: Anxious, - - Tearful Vital Signs Temp Pulse Resp BP Pulse Ox 97.2 F L 80 16 132/87 H 97 06/02/19 09:06 06/02/19 09:06 06/02/19 09:06 06/02/19 09:06 06/02/19 09:06 Oxygen Flow Rate (L/min) 2 Oxygen Delivery Method Room Air Weight: 208 lb 12.444 oz Body Mass Index (BMI) 30.8 Finger Stick Blood Glucose 129 Intake and Output for Last 24 Hours 05/31/19 06/01/19 06/02/19 23:59 23:59 23:59 Intake Total 666.67 / 666.67 2890 / 2890 200 / 200 Output Total 200 / 200 Balance 666.67 / 666.67 2690 / 2690 200 / 200 Medical Necessity - Tobacco Use Smoking Status: Current every day smoker Assessment/Plan All Active Problems Chest pain (Resolved) Generalized seizure disorder (Acute) Seizure (Acute) Basilar artery aneurysm (Resolved) 1. Breakthrough seizure-neurology consulted. Patient had nausea and vomiting prior and was unable to keep down keppra. Continue IV Keppra. Nausea and vomiting improved. Brain CT shows prior endovascular coiling of basilar tip aneurysm. No acute pathology. Unable to obtain MRI of brain due to gastric pacer. 2. Intractable cervical, lumbar and left hip pain-x-ray of left hip normal. Cervical spine CT shows status post anterior cervical discectomy and fusion at C6 and C7 with mild degenerative disc disease at C4-C5 and C5-C6. CT of thoracic spine shows mild dextroscoliosis with no spinal stenosis or neural foraminal stenosis. CT of lumbar spine shows status post transpedicular fixation from L4-S1 with mild degenerative disc disease at L3-L4. PT/OT. PRN Valium. Increase gabapentin regimen. PRN oxycodone/morphine. Lidoderm patch in place. Dr. Robledo consulted. KPAD left hip. 3. History of CVA-chronic left lower extremity weakness. Not on aspirin or statin. Aspirin 81 mg daily added. 4. History of gastroparesis status post gastric pacemaker 5. History of paroxysmal atrial fibrillation-not on rate control or oral anticoagulation. DVT prophylaxis-Lovenox subcu This patient was seen by SHAILA Song under the supervision of Dr. Elizondo. <Karla Elizondo - Last Filed: 06/02/19 15:32> - Physical Exam Vital Signs Temp Pulse Resp BP Pulse Ox 97.0 F L 78 16 120/83 H 95 06/02/19 15:02 06/02/19 15:02 06/02/19 15:02 06/02/19 15:02 06/02/19 15:02 Oxygen Flow Rate (L/min) 2 Oxygen Delivery Method Room Air Weight: 208 lb 12.444 oz Body Mass Index (BMI) 30.8 Finger Stick Blood Glucose 129 Intake and Output for Last 24 Hours 05/31/19 06/01/19 06/02/19 23:59 23:59 23:59 Intake Total 666.67 / 666.67 2890 / 2890 800 / 800 Output Total 200 / 200 Balance 666.67 / 666.67 2690 / 2690 800 / 800 Assessment/Plan Patient seen and examined. She still complains of severe back pain, and says she thinks she is having spasms in her leg, as well as thinks that her left hip might be dislocating from the hip joint with movement. Nausea and vomiting have improved. Reive of systems is otherwise negative. Labs and vitals reviewed. o/e: Vital Signs Height 5 ft 9 in Weight: 208 lb 12.444 oz Weight in Pounds 208.8 lbs Pulse Ox 95 Temperature 97.0 F Pulse Rate 78 Respiratory Rate 16 Blood Pressure [BP] 138/72 Blood Pressure 120/83 Blood Pressure Position [BP] Semi-Fowlers Blood Pressure Position Semi-Fowlers General: Alert, Oriented x3, Cooperative HEENT: Atraumatic, PERRLA, EOMI, Normocephalic Neck: Supple, No JVD, Negative Carotid Bruits Lungs: Clear to auscultation, Normal air movement Cardiovascular: Regular rate, No murmurs Abdomen: Bowel Sounds Present, Soft, Non Tender Extremities: No edema, Capillary Refill Less than 3 Seconds Skin: No rashes, No breakdown Musculoskeletal: No Tenderness to Palpation of Joints or Extremities Neurological: Cranial nerves II-XII grossly intact Psych/Mental Status: tearful, X-rays of her left hip done today was negative. Continue IV Keppra. Especially consulted for pain management. KPAD to the left hip and continue with oxycodone and morphine. Rest of management as per SHAILA Song's notes which I have reviewed and endorsed. Code Visit OBSV E&M: 03056 Subsequent observation care L2
--- NOTE | 2019-06-02 12:14 | CASEMGMT ---
Social Work SW met with pt and discussed d/c plan. Pt lives at home with her boyfriend. He does work during the day but is available to assist pt when not at work. Pt stating she does have two daughters who live in the [facility] and pt is sure they will assist her during the day or pt can go to their home if needed. At this time pt confirms she is unable to get out of bed on her own or get to the restroom. SW discussed concerns with pt returning home alone if she is not able to get around independently. Pt stating Dr. Robledo is to see her today and she thinks this will be helpful and pt will be able to function alone. If it is not helpful, pt states her daughters will help her for a few days or if they are not able she will then consider short term SNF. SW will follow up after pt is seen by Dr. Robledo. JACQUI Damian
--- NOTE | 2019-06-02 12:31 | PN.NEURO_ITS ---
Patient Problems: Active and Suspected Problems Generalized seizure disorder (Acute) Seizure (Acute) Subjective: Patient continues to be complaining of severe pain, now also complains of hip pain and spasms is very emotional and tearful. - Physical Exam General: Alert HEENT: Normocephalic Neck: Supple Lungs: Normal air movement Cardiovascular: Normal S1, Normal S2 Abdomen: Bowel Sounds Present Extremities: No cyanosis Neurological: - - Conscious, alert, CN II 12 grossly intact except chronic left seventh UMN facial palsy, power 5 x 5 right upper and lower extremities, left upper and lower extremity chronic weakness since stroke +4 x 5, possible decreased effort, examination slightly limited due to severe midthoracic and back pain, subjective decreased sensation both hands and legs per patient, no cerebellar signs, gait deferred, reflexes +++ B/L B/S/T/K/A, no clonus, normal rectal tone Psych/Mental Status: Normal Affect Vital Signs Temp Pulse Resp BP Pulse Ox 97.2 F L 80 16 132/87 H 97 06/02/19 09:06 06/02/19 09:06 06/02/19 09:06 06/02/19 09:06 06/02/19 09:06 Oxygen Flow Rate (L/min) 2 Oxygen Delivery Method Room Air Weight: 94.7 kg Body Mass Index (BMI) 30.8 Finger Stick Blood Glucose 129 Intake and Output for Last 24 Hours 05/31/19 06/01/19 06/02/19 23:59 23:59 23:59 Intake Total 666.67 / 666.67 2890 / 2890 200 / 200 Output Total 200 / 200 Balance 666.67 / 666.67 2690 / 2690 200 / 200 Medical Necessity - Tobacco Use Smoking Status: Current every day smoker Assessment/Plan All Active Problems Chest pain (Resolved) Generalized seizure disorder (Acute) Seizure (Acute) Basilar artery aneurysm (Resolved) The patient is a 49 year old F with PMH history 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 Jerez, seizure, history of renal mass status post resection no records available, PTSD, gastric pacemaker, history of anterior cervical discectomy and fusion at C6/C7, history of transpedicular fixation from L4-S1 admitted with breakthrough seizures and back pain. Per patient she had a fall about 2 days ago while she was helping her boyfriend's mother and since then she has been having severe mid back and lower back pain along with numbness tingling in the hands and legs and she feels she may be more weaker in the extremities, per patient she had severe nausea and vomiting secondary to the pain and she could not keep her seizure medications down secondary to vomiting and had 2 generalized tonic-clonic seizures which was witnessed by her boyfriend's son yesterday 05/31/2019, along with tongue bite, urinary incontinence and postictal state, patient was unaware of the event, per patient her seizures started about 6 years ago after her basilar tip aneurysm was coiled, and she has been on Keppra 1 g p.o. twice daily and her last seizure was about a year ago. Patient denies any history of atrial fibrillation in the past. At present she is not on aspirin at baseline. Per patient she has severe pain in the mid upper and lower back since the fall about 2 days ago. Also complains that she may be having incontinence and numbness around her genitals. On examination patient is complaining of generalized subjective numbness in the extremities and perineal region but has normal rectal tone. CT C-spine showed anterior cervical discectomy and fusion at C6/C7 with mild degenerative disc disease at C4-C5 and C5-C6. CT thoracic spine not show any spinal stenosis or neuroforaminal stenosis and mild dextroscoliosis. CT lumbar spine show transpedicular fixation from L4-S1 with mild degenerative disc disease at L3/L4. Impression Breakthrough seizure Cervical and Lumbar degenerative disc disease-stable ? Somatoform disorder/conversion Plan -CT C spine/T spine and L spine results reviewed -CT brain nothing acute -MRI brain cannot be done due to gastric pacer -ASA 81 mg PO Once daily for secondary stroke prevention -Continue Keppra 1 g IV BID. -No further seizures since admission -Pain management consult -Seizure precautions discussed in detail. Patient counseled not to drive for 6 months from her this seizure episode -Psychiatric consult and behavioral therapy -Fall precautions -GI/DVT prophylaxis -PT/OT -Further management of back pain per hospitalist team/pain management -Follow up with neurology as outpatient in 6 weeks -Follow up with Dr. Escobedo for aneurysm management -Will sign off. -Please call with questions if any -Thank you for allowing us to participate in patient's care and management This note has been generated using [employer] dictation software. It may contain incorrect words, spellings and punctuations that were not noted in the review of the note prior to signing.
[2019-06-02] MEDS: proCHLORPERazine 10 MG/2 ML Vial 5 MG IV (13:49)
[2019-06-02] MEDS: Gabapentin 100 MG Capsule PO (18:29)
--- NOTE | 2019-06-02 18:58 | NURSING ---
Patient began having an episode at 1555 - Patient expressed that she was feeling odd and began stumbling over her words. Patient then laid back and became unresponsive and had what appear to be twitching for 10 seconds. Patient did not display the typical tonic/clonic type motions of a seizure. However, patient returned within 27 seconds. She was unsure who anyone was in the room. Vitals stable. Patient then began to dry heave. No actual emesis. Patient became unresponsive again. No twitching. However, returned within 2 seconds. She was completely regained of memory. No post ictal. Paged MD Elizondo, Mickie Burger and Hr Recruiter all at [phone]. Charge Jordin present within the end of the first 10 second episode. Patient beyond pain has not had any residuals.
[2019-06-02] MEDS: Fluticasone 0.05% 1 SPRAY NASAL.SRY 2 SPRAY NASAL (22:31)
[2019-06-02] MEDS: Gabapentin 300 MG Capsule PO (22:31)
--- NOTE | 2019-06-02 22:32 | NURSING ---
removed lidoderm patch from pt back at this time
[2019-06-03] VITALS (13 sets, daily range): BP systolic 104–143; BP diastolic 66–85; PULSE 60–85; RESP 14–18; TEMP 36.2–36.8; O2SAT 92–97
[2019-06-03] MEDS: 0.9% NaCl Peripheral Flush Adult/Peds IV ×6 (00:10→11:57)
[2019-06-03] MEDS: proCHLORPERazine 10 MG/2 ML Vial 5 MG IV ×2 (00:13→11:57)
[2019-06-03] MEDS: Enoxaparin 40 MG/0.4 ML Syringe SC (05:31)
[2019-06-03] MEDS: Morphine 2 MG/ML Syringe IV ×2 (05:48→10:07)
[2019-06-03] MEDS: Ondansetron 4 MG/2 ML Vial IV (05:48)
[2019-06-03] MEDS: levETIRAcetam IV 1,000 MG/100 ML BAG 400 MG IV (09:30)
[2019-06-03] MEDS: 0.9% NaCl IVPB Med Flush (250 mL) 15 ML IV (09:30)
[2019-06-03] MEDS: Pantoprazole Sodium 40 MG Tablet PO (10:06)
[2019-06-03] MEDS: Lidocaine 5% Patch 1 PATCH TOPICAL (10:06)
[2019-06-03] MEDS: Senna/Docusate Sodium 1 Tablet 2 TABLET PO (10:07)
[2019-06-03] MEDS: Sucralfate 1 GM Tablet PO (10:08)
--- NOTE | 2019-06-03 12:42 | PCM.PROGNOTE ---
<Mickie Burger - Last Filed: 06/03/19 12:45> Subjective: Patient seen and examined. Continues to complain of intractable left hip pain and spasms. To undergo injection with Dr. Robledo later today. - Physical Exam General: Alert, Oriented x3, Cooperative HEENT: Atraumatic, PERRLA, EOMI, Normocephalic Neck: Supple, No JVD, Negative Carotid Bruits Lungs: Clear to auscultation, Normal air movement Cardiovascular: Regular rate, Regular Rhythm, Normal S1, Normal S2, No murmurs Abdomen: Bowel Sounds Present, Soft, Non Tender, Non-Distended Extremities: No clubbing, No cyanosis, No edema, Capillary Refill Less than 3 Seconds Skin: No rashes, No breakdown Musculoskeletal: - - Left mid back tenderness to palpation. Left hip area muscle spasms, visible. Neurological: Cranial nerves II-XII grossly intact, Neuro grossly intact Psych/Mental Status: Normal Affect, Appropriate Vital Signs Temp Pulse Resp BP Pulse Ox 97.6 F L 60 14 125/74 H 96 06/03/19 10:15 06/03/19 10:15 06/03/19 10:15 06/03/19 10:15 06/03/19 10:15 Oxygen Flow Rate (L/min) 2 Oxygen Delivery Method Room Air Weight: 208 lb 12.444 oz Body Mass Index (BMI) 30.8 Finger Stick Blood Glucose 129 Intake and Output for Last 24 Hours 06/01/19 06/02/19 06/03/19 23:59 23:59 23:59 Intake Total 2890 / 2890 1750 / 1750 210.25 / 210.25 Output Total 200 / 200 650 / 650 Balance 2690 / 2690 1100 / 1100 210.25 / 210.25 Medical Necessity - Tobacco Use Smoking Status: Current every day smoker Assessment/Plan All Active Problems Chest pain (Resolved) Generalized seizure disorder (Acute) Seizure (Acute) Basilar artery aneurysm (Resolved) 1. Breakthrough seizure-neurology consulted. Patient had nausea and vomiting prior and was unable to keep down keppra. Continue IV Keppra. Nausea and vomiting improved. Brain CT shows prior endovascular coiling of basilar tip aneurysm. No acute pathology. Unable to obtain MRI of brain due to gastric pacer. Outpatient follow-up with neurology. No driving for 6 months. 2. Intractable cervical, lumbar and left hip pain-x-ray of left hip normal. Cervical spine CT shows status post anterior cervical discectomy and fusion at C6 and C7 with mild degenerative disc disease at C4-C5 and C5-C6. CT of thoracic spine shows mild dextroscoliosis with no spinal stenosis or neural foraminal stenosis. CT of lumbar spine shows status post transpedicular fixation from L4-S1 with mild degenerative disc disease at L3-L4. PT/OT. PRN Valium. Increase gabapentin regimen to 300 mg 3 times daily. PRN oxycodone/morphine. Lidoderm patch in place. Dr. Robledo consulted. KPAD left hip. Plan for left hip injection this afternoon, spoke with Dr. Robledo. Will evaluate following injection. 3. History of CVA-chronic left lower extremity weakness. Not on aspirin or statin. Aspirin 81 mg daily added. 4. History of gastroparesis status post gastric pacemaker 5. History of paroxysmal atrial fibrillation-not on rate control or oral anticoagulation. DVT prophylaxis-Lovenox subcu This patient was seen by SHAILA Song under the supervision of Dr. Elizondo. <Karla Elizondo - Last Filed: 06/03/19 16:21> - Physical Exam Vital Signs Temp Pulse Resp BP Pulse Ox 97.9 F 70 14 134/75 H 95 06/03/19 14:08 06/03/19 14:08 06/03/19 14:08 06/03/19 14:08 06/03/19 14:08 Oxygen Flow Rate (L/min) 2 Oxygen Delivery Method Room Air Weight: 208 lb 12.444 oz Body Mass Index (BMI) 30.8 Finger Stick Blood Glucose 129 Intake and Output for Last 24 Hours 06/01/19 06/02/19 06/03/19 23:59 23:59 23:59 Intake Total 2890 / 2890 1750 / 1750 376.92 / 376.92 Output Total 200 / 200 650 / 650 Balance 2690 / 2690 1100 / 1100 376.92 / 376.92 Assessment/Plan Patient seen and examined. Pain is improved today and nausea vomiting have also improved. She is due for back pain shots by pain management today. Review of systems otherwise negative. o/e: Vital Signs Height 5 ft 9 in Weight: 208 lb 12.444 oz Weight in Pounds 208.8 lbs Pulse Ox 95 Temperature 97.9 F Pulse Rate 70 Respiratory Rate 14 Blood Pressure [BP] 138/72 Blood Pressure 134/75 Blood Pressure Position [BP] Semi-Fowlers Blood Pressure Position Semi-Fowlers General: Alert, Oriented x3, Cooperative HEENT: Atraumatic, PERRLA, EOMI, Normocephalic Neck: Supple, No JVD, Negative Carotid Bruits Lungs: Clear to auscultation, Normal air movement Cardiovascular: Regular rate, No murmurs Abdomen: Bowel Sounds Present, Soft, Non Tender Extremities: No edema, Capillary Refill Less than 3 Seconds Skin: No rashes, No breakdown Musculoskeletal: No Tenderness to Palpation of Joints or Extremities Neurological: Cranial nerves II-XII grossly intact Psych/Mental Status: normal affect Plan is for pain shots by episodically today. Transition to p.o. Keppra. Home dosing as per neurology. PT OT on board. Likely discharge after pain shots. Rest of management as per SHAILA Song's notes which I have reviewed and endorsed. Code Visit OBSV E&M: 84868 Subsequent observation care L2
--- NOTE | 2019-06-03 12:47 | NURSING ---
report called to ROBERTO CARLOS DUFFY
--- NOTE | 2019-06-03 12:56 | RAD_ITS ---
PROCEDURE: Fluoroscopy DATE OF EXAMINATION: 06/03/2019 INDICATION: Female, 49 years old. Back pain FLUOROSCOPY TIME (if supplied): (0:01) minutes/seconds RADIATION DOSAGE (If Supplied By Facility): 1 fluoroscopic image obtained 1 lateral fluoroscopic image was obtained of the sacrum showing pedicle screws in place in the S1 segment.Fluoroscopy and filming were completed to Dr. Mandy Robledo's satisfaction. RAD/Fluor Guidance for Spine Inj IMPRESSION: A single lateral fluoroscopic image was obtained, as described above. Electronically Signed: Theron Marrufo, at 18:15 EDT Tel , Service support ,
[2019-06-03] MEDS: Lactated Ringers 1,000 ML 100 ML IV (13:08)
[2019-06-03] MEDS: Triamcinolone Acetonide 40 MG/ML Vial (13:21)
--- NOTE | 2019-06-03 14:32 | DCINST_ITS ---
- Discharge Diagnoses Current Active Problems: Current Active and Chronic Problems Generalized seizure disorder (Acute) You will use the following diet at home:: Calorie/Carbohydrate Controlled (specify 1200, 1400, etc) Discharge Activity: Return to Normal Activity Call your doctor if you observe: Shortness of breath, Dizziness, Fainting spells, Chest pain, Uncontrolled pain Allergies/Adverse Reactions: Allergies Penicillins Allergy (Verified 05/31/19 19:42) Anaphylaxis propoxyphene napsylate [From Darvocet-N 100] Allergy (Verified 05/31/19 19:42) Rash hydrocodone bitartrate [From Vicodin] Adverse Reaction (Verified 05/31/19 19:42) Itching latex Adverse Reaction (Verified 05/31/19 19:42) blistering of skin venom-honey bee [bee venom (honey bee)] Adverse Reaction (Verified 05/31/19 19:42) Chest tightness PLASTIC TAPE Allergy (Uncoded 05/31/19 19:42) blistering IV contrast Adverse Reaction (Uncoded 05/31/19 19:42) Vomiting Medications to take at Discharge Albuterol Sulfate [Ventolin Hfa] 2 puff IH Q6H PRN PRN 09/30/16 Fluticasone 0.05% [Flonase Nasal [place]] 2 spray NASAL BID 09/30/16 levETIRAcetam tablet [Keppra tablet] 1,000 mg PO BID 09/06/17 Multivit-Min/Iron/Folic/Lutein [Centrum Silver Women Tablet] 1 tab PO DAILY 03/21/19 Albuterol Inhaler [Ventolin Hfa] 1 - 2 puff INHALATION Q4H PRN PRN #1 inhaler 04/20/19 Diazepam [Valium] 5 mg PO Q8 PRN #10 tab 05/30/19 Oxycodone HCl/Acetaminophen [Percocet 5-325] 1 tab PO Q6H PRN PRN 3 Days #12 tab 05/30/19 Omeprazole 40 mg PO BID 05/31/19 Polyethylene Glycol 3350 [Miralax] 17 gm PO DAILY 05/31/19 Sucralfate [Carafate] 1 gm PO 4X/DAY 05/31/19 Aspirin E.C. [Ecotrin] 81 mg PO DAILY@0800 #30 tab 06/03/19 Gabapentin [Neurontin] 300 mg PO TIDCM #60 cap 06/03/19 Ondansetron HCl [Zofran] 4 mg PO Q8H PRN PRN #20 tab 06/03/19 The following prescriptions were given: Aspirin E.C. [Ecotrin] 81 mg PO DAILY@0800 #30 tab Transmission Status: Pending to [id number] Gabapentin [Neurontin] 300 mg PO TIDCM #60 cap Transmission Status: Sent to [id number] Ondansetron HCl [Zofran] 4 mg PO Q8H PRN PRN #20 tab PRN Reason: Nausea Transmission Status: Pending to [id number] Primary Care Physician: Amandeep Loredo [Primary Care Provider] - Please follow up with your Primary Care Physician in: 1 Week Test Results: Test results from this visit will be discussed in further detail at your follow- up appointment, if applicable. Please Follow Up With: Mandy Robledo MD When: 1 Week Please Follow Up With: Hai Nick MD When: 6 Weeks Proposed Discharge Date: 06/03/19
--- NOTE | 2019-06-03 14:38 | DS.PCM_ITS ---
<Mickie Burger - Last Filed: 06/03/19 14:47> Discharge Date and Diagnosis Date of Admission: 05/31/19 Date of Discharge: 06/03/19 - Primary Discharge Diagnosis Active and Suspected Problems 1. Breakthrough seizure 2. Intractable cervical, lumbar and left hip pain 3. History of CVA 4. History of gastroparesis status post gastric pacemaker 5. 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 Electronically Signed: Salvador Clarke MD at 12:37 EDT Tel , Service support , Thoracic Spine CT 06/01/19 10:51 IMPRESSION: Mild dextroscoliosis but no spinal stenosis or neural foraminal stenosis. Electronically Signed: Salvador Clarke MD at 12:35 EDT Tel , Service support , Cervical Spine CT 06/01/19 10:57 IMPRESSION: Status post anterior cervical discectomy and fusion at C6/C7 with mild degenerative disc disease at C4/C5 and C5/C6. Electronically Signed: Salvador Clarke MD at 12:32 EDT Tel , Service support , Brain CT 06/01/19 23:38 IMPRESSION: Prior endovascular coiling of basilar tip aneurysm. No acute intracranial pathology. Electronically Signed: Karie Chang, at 0:39 EDT Tel , Service support , Hip/Pelvis X-Ray 06/02/19 08:04 IMPRESSION: Normal x-ray examination of the pelvis and hip. Electronically Signed: Salvador Clarke MD at 8:43 EDT Tel , Service support , Dr. Nick-Neurology Dr. Robledo- pain management Operations: None Procedures: - - Back injection Summary of Care Provided: The patient is a 49 year old F admitted 05/31/2019 due to seizures. 1. Breakthrough seizure-neurology consulted. Patient had nausea and vomiting prior and was unable to keep down keppra. Nausea and vomiting improved. No further seizure activity. Brain CT shows prior endovascular coiling of basilar tip aneurysm. No acute pathology. Unable to obtain MRI of brain due to gastric pacer. Outpatient follow-up with neurology. No driving for 6 months. PRN Zofran at discharge. Continue home oral Keppra regimen. 2. Intractable cervical, lumbar and left hip pain-x-ray of left hip normal. Cervical spine CT shows status post anterior cervical discectomy and fusion at C6 and C7 with mild degenerative disc disease at C4-C5 and C5-C6. CT of thoracic spine shows mild dextroscoliosis with no spinal stenosis or neural fora farideh stenosis. CT of lumbar spine shows status post transpedicular fixation from L4-S1 with mild degenerative disc disease at L3-L4. PT/OT. Continue home PRN Valium. Increase gabapentin regimen to 300 mg 3 times daily. Continue home PRN pain regimen. Dr. Robledo consulted. Patient underwent back injection today with Dr. Robledo. Significant improvement in pain. Patient ambulating without difficulty. Continue outpatient follow-up with pain management. 3. History of CVA-chronic left lower extremity weakness. Not on aspirin or statin. Aspirin 81 mg daily added. 4. History of gastroparesis status post gastric pacemaker 5. History of paroxysmal atrial fibrillation-not on rate control or oral anticoagulation. General: Alert, Oriented x3, Cooperative HEENT: Atraumatic, PERRLA, EOMI, Normocephalic Neck: Supple, No JVD, Negative Carotid Bruits Lungs: Clear to auscultation, Normal air movement Cardiovascular: Regular rate, Regular Rhythm, Normal S1, Normal S2, No murmurs Abdomen: Bowel Sounds Present, Soft, Non Tender, Non-Distended Extremities: No clubbing, No cyanosis, No edema, Capillary Refill Less than 3 Seconds Skin: No rashes, No breakdown Musculoskeletal: - - Left mid back tenderness to palpation. Left hip area muscle spasms, visible. Neurological: Cranial nerves II-XII grossly intact, Neuro grossly intact Psych/Mental Status: Normal Affect, Appropriate Patient seen and examined prior to discharge. Physical assessment as noted above. Patient is stable for discharge with follow up recommendations as noted above. This patient was seen by SHAILA Song under the supervision of Dr. Elizondo. - Physical Exam Vital Signs Temp Pulse Resp BP Pulse Ox 97.9 F 70 14 134/75 H 95 06/03/19 14:08 06/03/19 14:08 06/03/19 14:08 06/03/19 14:08 06/03/19 14:08 Oxygen Flow Rate (L/min) 2 Oxygen Delivery Method Room Air Weight: 208 lb 12.444 oz Body Mass Index (BMI) 30.8 Finger Stick Blood Glucose 129 Intake and Output for Last 24 Hours 06/01/19 06/02/19 06/03/19 23:59 23:59 23:59 Intake Total 2890 / 2890 1750 / 1750 210.25 / 210.25 Output Total 200 / 200 650 / 650 Balance 2690 / 2690 1100 / 1100 210.25 / 210.25 Discharge Diet: 1800 Calorie Control Diet Discharge Activity: Return to Normal Activity Call your doctor if you observe: Shortness of breath, Dizziness, Fainting spells, Chest pain, Uncontrolled pain Home Medications: Medications to take at Discharge Albuterol Sulfate [Ventolin Hfa] 2 puff IH Q6H PRN PRN 09/30/16 Fluticasone 0.05% [Flonase Nasal [place]] 2 spray NASAL BID 09/30/16 levETIRAcetam tablet [Keppra tablet] 1,000 mg PO BID 09/06/17 Multivit-Min/Iron/Folic/Lutein [Centrum Silver Women Tablet] 1 tab PO DAILY 03/21/19 Albuterol Inhaler [Ventolin Hfa] 1 - 2 puff INHALATION Q4H PRN PRN #1 inhaler 04/20/19 Diazepam [Valium] 5 mg PO Q8 PRN #10 tab 05/30/19 Oxycodone HCl/Acetaminophen [Percocet 5-325] 1 tab PO Q6H PRN PRN 3 Days #12 tab 05/30/19 Omeprazole 40 mg PO BID 05/31/19 Polyethylene Glycol 3350 [Miralax] 17 gm PO DAILY 05/31/19 Sucralfate [Carafate] 1 gm PO 4X/DAY 05/31/19 Aspirin E.C. [Ecotrin] 81 mg PO DAILY@0800 #30 tab 06/03/19 Gabapentin [Neurontin] 300 mg PO TIDCM #60 cap 06/03/19 Ondansetron HCl [Zofran] 4 mg PO Q8H PRN PRN #20 tab 06/03/19 Following Prescrptions Were Given to Patient: Aspirin E.C. [Ecotrin] 81 mg PO DAILY@0800 #30 tab Transmission Status: Received by [id number] Gabapentin [Neurontin] 300 mg PO TIDCM #60 cap Transmission Status: Received by [id number] Ondansetron HCl [Zofran] 4 mg PO Q8H PRN PRN #20 tab PRN Reason: Nausea Transmission Status: Received by [id number] Primary Care Physician: Amandeep Loredo [Primary Care Provider] - Please follow up with your Primary Care Physician in: 1 Week Please Follow Up With: Mandy Robledo MD When: 1 Week Please Follow Up With: Hai Nick MD When: 6 Weeks Disposition: Home Minutes spent on discharge:: 35 Patient Condition:: Stable Medical Necessity - Tobacco Use Smoking Status: Current every day smoker Meaningful Use Info Meaningful Use Diagnoses (Choose all that apply): None applicable <Karla Elizondo - Last Filed: 06/03/19 16:13> Discharge Date and Diagnosis - Secondary Discharge Diagnosis Chronic Problems Gastroparesis (Chronic) CVA (cerebral vascular accident) (Chronic) PAF (paroxysmal atrial fibrillation) (Chronic) PTSD (post-traumatic stress disorder) (Chronic) History of lumbar fusion (Chronic) Weakness of left leg (Chronic) History of stroke without residual deficits (Chronic) Depression (Chronic) Migraine (Chronic) Seizure disorder (Chronic) 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 Patient had intractable back pain after spraining her back; severe back pain led to vomiting and inability to keep her medication down she subsequently had a seizure she could not take antiseizure medication. Back pain progressively worsened, with associated numbness and tingling as well as weakness in the lower extremities and lower back. Due to concerns of possible cauda equina she had CTs of the thoracic, lumbar and cervical spine which were all negative and only showed anterior cerivical discectomy and fusion at C6/7, with mild degenerative disc disease at C4-5, and C5-6, and mild degenerative disc disease at L3/4. She was given IV Decadron due to the consideration of cauda equina syndrome. CT of the brain done was negative and she couldn;t have an MRI on account of a history of aneurysm status post coiling. Patient did have a history of intractable back pain and had had epidurals by pain management in the past. Neurology was consulted on account of breakthrough seizures. Brain CT was essentially unremarkable and only showed endovascular coiling of the basilar tip aneurysm. Pain management was consulted and she had back injection by Dr. Robledo on 06/03/2019. Pain subsequently improved markedly and nausea vomiting also resolved. She was discharged home on 06/03/2019. She is to continue her home Keppra dose and counseled that she should not drive for about 6 months. She is to follow-up with neurology and pain management as well as her primary care doctor. Patient seen and examined prior to discharge. She had no complaints. Review of systems otherwise negative. Labs and vitals reviewed. Home medications reviewed and reconciled. o/e: Vital Signs Height 5 ft 9 in Weight: 208 lb 12.444 oz Weight in Pounds 208.8 lbs Pulse Ox 95 Temperature 97.9 F Pulse Rate 70 Respiratory Rate 14 Blood Pressure [BP] 138/72 Blood Pressure 134/75 Blood Pressure Position [BP] Semi-Fowlers Blood Pressure Position Semi-Fowlers [] General: Alert, Oriented x3, Cooperative HEENT: Atraumatic, PERRLA, EOMI, Normocephalic Neck: Supple, No JVD, Negative Carotid Bruits Lungs: Clear to auscultation, Normal air movement Cardiovascular: Regular rate, No murmurs Abdomen: Bowel Sounds Present, Soft, Non Tender Extremities: No edema, Capillary Refill Less than 3 Seconds Skin: No rashes, No breakdown Musculoskeletal: No Tenderness to Palpation of Joints or Extremities Neurological: Cranial nerves II-XII grossly intact Psych/Mental Status: Normal Affect, Appropriate, Alert and oriented to time, place, person, mood and affect Rest as per Mickie Burger [employer]LECT[employer]END[employer]-C's note, which I have reviewed and endorsed. Code Visit OBSV E&M: 24011 Observation care discharge
== END 2019-06-03 14:36 | disposition home or self-care (01) ==
LOC: ED 19:57 → PCU 22:52
PROVIDERS: Anesthesiology Pain Medicine; Admitting Provider Internal Medicine; Emergency Provider Emergency Medicine; Family Provider Family Medicine; PCP Family Medicine; Referring Provider Internal Medicine; Visit Provider Student in an Organized Health Care Education/Training Program
PROC: 3E0S3BZ Introduction of Anesthetic Agent into Epidural Space, Percutaneous Approach (ICD-10-PCS; CPT 62282; principal; 2019-06-03 14:50)
DX: G40.909 Epilepsy, unspecified, not intractable, without status epilepticus (principal); I48.0 Paroxysmal atrial fibrillation; G89.29 Other chronic pain; R32 Unspecified urinary incontinence; G43.909 Migraine, unspecified, not intractable, without status migrainosus; F43.12 Post-traumatic stress disorder, chronic; K31.84 Gastroparesis; I69.354 Hemiplegia and hemiparesis following cerebral infarction affecting left non-dominant side; M25.552 Pain in left hip; M51.16 Intervertebral disc disorders with radiculopathy, lumbar region; M96.1 Postlaminectomy syndrome, not elsewhere classified; M50.323 Other cervical disc degeneration at C6-C7 level; M50.321 Other cervical disc degeneration at C4-C5 level; R20.0 Anesthesia of skin; N28.89 Other specified disorders of kidney and ureter; F41.9 Anxiety disorder, unspecified; F32.9 Major depressive disorder, single episode, unspecified; I25.2 Old myocardial infarction; J45.909 Unspecified asthma, uncomplicated; Z79.899 Other long term (current) drug therapy; Z87.891 Personal history of nicotine dependence
CPT/HCPCS: 62323; 36415; 64483; 70450; 72125; 72128; 72131; 73502; 77003; 80048; 80053; 83690; 83735; 85025; 93005; 96361; 96365; 96372; 96375; 96376; 99218; 99285; 99406; J7030; J7050; J7120; A4216; G0378; J2405

== ENCOUNTER 2019-06-21 09:53 | Observation (INO) | payer MEDICARE, SELFPAY ==
[2019-06-21] VITALS (9 sets, daily range): BP systolic 108–140; BP diastolic 65–98; PULSE 77–101; RESP 16–20; TEMP 36.3–37; O2SAT 92–98; BMI 29.5; BMI 30.3
--- NOTE | 2019-06-21 10:09 | ED.VIS.GEN ---
History of Present Illness Chief Complaint: Back Informant: Patient Onset: Days - 3 Timing: Continuous Current Severity: Moderate Maximum Severity: Moderate Narrative: Patient presents with neck pain. This is chronic and recurrent but got worse over the last 3 days. Pain radiates to her left side in her back including the lower back. She has pain when she moves her arm, she has pain when she moves around, she is able to ambulate, she has no bowel or bladder compromise. She has multiple x-rays including a recent CT of the C-spine which showed DJD. She has some paresthesias on the left side but normal strength. Past Medical History - Allergies and Home Meds Allergies/Adverse Reactions: Allergies Penicillins Allergy (Verified 06/21/19 10:08) Anaphylaxis propoxyphene napsylate [From Darvocet-N 100] Allergy (Verified 06/21/19 10:08) Rash hydrocodone bitartrate [From Vicodin] Adverse Reaction (Verified 06/21/19 10:08) Itching venom-honey bee [bee venom (honey bee)] Adverse Reaction (Verified 06/21/19 10:08) Chest tightness PLASTIC TAPE Allergy (Uncoded 06/21/19 10:08) blistering IV contrast Adverse Reaction (Uncoded 06/21/19 10:08) Vomiting Primary Care Physician: Amandeep Loredo [Primary Care Provider] - Past Medical History: - - History of seizures, history of aneurysm. Chronic neck pain Surgical History: appendectomy, cholecystectomy, hysterectomy, - - Multiple abdominal surgeries, including for kidney tumor, hysterectomy, cholecystectomy, endometriosis, brain aneursyms clamped and coiled, gastric pacemaker placement. Lives: Spouse/ Significant Other Smoking Status: Current every day smoker - Family History Maternal Family History: Reports: Diabetes Paternal Family History: Reports: Heart Disease Review of Systems General: Denies: Fever ENT: Denies: Rhinorrhea, Sore throat Cardiovascular: Denies: Chest pain Respiratory: Denies: Cough Genitourinary: Denies: Dysuria, Hematuria, Frequency Musculoskeletal: Reports: Neck pain, Back pain, Extremity Pain Skin: Denies: Rash Neurological: Reports: Parasthesia. Denies: Weakness Psych: Reports: Anxiety Hematologic: Denies: Easy bruising Physical Exam Vital Signs/Narrative: Vital Signs Temp Pulse Resp BP Pulse Ox 06/21/19 09:54 97.3 F L 90 20 H 125/98 H 97 General: - - She appears in some distress Head: Atraumatic Eyes: Perrl ENT: Moist mucous membranes Neck: - - There is left paraspinal tenderness no significant spinal tenderness. There is quite a bit of muscle spasm in that region Cardiovascular: Regular rate, Regular rhythm Respiratory: No distress, CTA bilaterally Abdomen: Soft, Nontender Rectal: Deferred Back: - - There is trapezius tenderness and lumbar pain Extremities: Nontender, No edema Skin: Normal color Psychological: Normal affect Diagnostic/Tx/Re-eval - Medical Decision Making Patient is given multiple rounds of Dilaudid she still has quite a bit of pain, she is anxious she is given Ativan. At one point I did get called into the room by the nurse that she has facial weakness however this is chronic especially when her pain gets worse. She has no new symptoms. Regardless I did blood work and a CT and these are unremarkable. I do not believe she is stable to be discharged home she will probably need placement to an ECF. However because she has intractable pain and she has had multiple doses of Dilaudid I will admit her for observation for intractable pain ED Disposition - Plan for ED Patient: Diagnosis: Neck pain Referrals: Amandeep Loredo [Primary Care Provider] -
[2019-06-21] MEDS: HYDROmorphone 1 MG/ML Syringe IM ×2 (10:14→11:42)
[2019-06-21] MEDS: Orphenadrine 60 MG/2 ML Ampul IM (10:16)
--- NOTE | 2019-06-21 10:57 | ED.RN ---
ddimer 0.[address] reed aware
[2019-06-21] MEDS: Ondansetron 4 MG/2 ML Vial IM (11:40)
--- NOTE | 2019-06-21 11:49 | ED.RN ---
PT REPORTS URINARY INCONTINENCE AND NUMBNESS IN THE PELVIC AREA. DR. ALATORRE AWARE, NO FURTHER ORDERS RECEIVED.
--- NOTE | 2019-06-21 12:30 | ED.RN ---
PT REPORTS NEW NUMBNESS AND TINGLING IN LEFT ARM AND LEG. PT HAS WEAKNESS IN LEFT ARM AND LEFT LEG. DR. ALATORRE AWARE AND IN TO DO EXAM.
--- NOTE | 2019-06-21 12:32 | ED.RN ---
PT C/O INCREASE IN LEFT SIDED BACK PAIN AND ARM PAIN FOLLOWING DR. ALATORRE'S EXAM.
--- NOTE | 2019-06-21 12:39 | CT_ITS ---
STUDY: CT BRAIN WITHOUT CONTRAST REASON FOR EXAM: Female, 49 years old. Headaches and stiff neck. RADIATION DOSAGE (If Supplied By Facility): CTDIvol = ( 44.99 ) mGy, DLP = ( 779.24 ) mGycm TECHNIQUE: Transaxial CT imaging of the brain was performed without administration of intravenous contrast material. Individualized dose optimization techniques were used for this CT. COMPARISON: Comparison is made with prior study dated June 01, 2009. FINDINGS: Normal soft tissue structures. Normal calvarium. Once again, endovascular coiling of basilar tip aneurysm is seen. Normal size ventricles and extra-axial spaces for the patient's age. Normal white matter tracts of the cerebral hemispheres. Normal basal ganglia and thalami. Normal brainstem. Normal cerebellum. There is no intracranial hemorrhage. There are no findings of an acute ischemic infarction. Normal visualized paranasal sinuses. CT/Brain/Head without Contrast IMPRESSION: Stable examination. No acute abnormality is seen. Electronically Signed: Luiz Neff, at 14:01 EDT , Service support ,
--- NOTE | 2019-06-21 12:39 | EKG12_ITS ---
Test Reason : BACK/NECK PAIN Blood Pressure : / mmHG Vent. Rate : 077 BPM Atrial Rate : 077 BPM P-R Int : 162 ms QRS Dur : 096 ms QT Int : 398 ms P-R-T Axes : 066 065 067 degrees QTc Int : 450 ms Suspect unspecified pacemaker failure Normal sinus rhythm Possible Left atrial enlargement RSR' or QR pattern in V1 suggests right ventricular conduction delay Borderline ECG Confirmed by MARIYA JAMES ([id number]), editor trade journal MARQUIS AVILA ([id number]) on 06/27/2019 8:55:58 AM Referred By: Alfred Sotomayor Confirmed By:MARIYA JAMES
[2019-06-21 13:03] LABS: Absolute Lymphocyte Count 3.11 X10^3/uL (0.83-4.51); Absolute Neutrophil Count 6.2 X10^3/uL (2.0-7.7); Basophil# 0.07 X10^3/uL; Basophil% 0.7 % (0-1); Eosinophil# 0.08 X10^3/uL; Eosinophils% 0.8 % (0-5); Hematocrit 53.2 % (37-47); Lymphocyte # 3.11 X10^3/ul (4.0); Lymphocyte % 30.8 % (19-41); Mean Corpuscular Hgb 31.3 pg (27.0-32.0); Mean Platelet Vol. 9.4 fl (6.2-12.0); Monocyte# 0.63 X10^3/uL; Monocyte% 6.2 % (0-10); NRBC Flagged by Analyzer 0 % (0-5); Neutrophil # 6.16 X10^3/uL (2.7-7.7); Platelet Count 377 K/mm3 (150-450); RBC Distribution Width CV 12.9 % (11.6-14.6); RBC Distribution Width SD 46.5 fl (35.1-43.9); Red Blood Count 5.43 M/mm3 (4.2-5.4); White Blood Count 10.1 K/mm3 (4.4-11.0)
[2019-06-21] MEDS: LORazepam 2 MG/ML Syringe 1 MG IV (13:04)
[2019-06-21] MEDS: 0.9% Normal Saline 1,000 ML 1000 ML IV (13:04)
[2019-06-21 13:18] LABS: AST(SGOT) 15 U/L (15-37); Alanine Aminotransfer ALT/SGPT 27 U/L (13-56); Alkaline Phosphatase 223 U/L (45-117); Anion Gap 6 (5-15); BUN 14 mg/dL (7-18); BUN/Creat Ratio 17.3 RATIO (10-20); Calcium,Total 9.1 mg/dL (8.5-10.1); Chloride 107 mmol/L (98-107); Creatinine, Serum 0.81 mg/dL (0.55-1.02); EST Glomerular Filtration Rate 79 mL/min (>60); Est Glom Filt Rate - Afr Amer 96 mL/min (>60); Estimated Creatinine Clearance 86.84 ml/min; Globulin 4.1 g/dL (2.2-4.2); Glucose 93 mg/dL (74-106); Potassium 4.2 mmol/L (3.5-5.1); Protein, Total 8.1 g/dL (6.4-8.2); Sodium Level 141 mmol/L (136-145)
[2019-06-21] MEDS: HYDROmorphone 1 MG/ML Syringe IV (13:32)
--- NOTE | 2019-06-21 15:45 | PCM.HP.STD ---
Problem List (1) Trapezius muscle spasm Status: Acute History of Present Illness Date of Admission: 06/21/19 Chief Complaint: neck pain The patient is a 49 year old F presents with left-sided neck pain. States that it could not turn her head to look. Presented to the emergency room and patient received a total of 4 mg of IV hydromorphone for this pain. The hospitalist service was asked to evaluate the patient for further pain control and evaluation for fpc facility. Patient complains to me of this pain that began couple days ago in her neck and back stasis ulcer her chest that also in her left groin. Also complains of headache. States that she is also, over the past 2 hours developed urinary incontinence and saddle anesthesia. And states that her left leg is weaker than normal. Patient has had a history of a stroke that did affect her left side. 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) Allergies Penicillins Allergy (Verified 06/21/19 10:08) Anaphylaxis propoxyphene napsylate [From Darvocet-N 100] Allergy (Verified 06/21/19 10:08) Rash hydrocodone bitartrate [From Vicodin] Adverse Reaction (Verified 06/21/19 10:08) Itching venom-honey bee [bee venom (honey bee)] Adverse Reaction (Verified 06/21/19 10:08) Chest tightness PLASTIC TAPE Allergy (Uncoded 06/21/19 10:08) blistering IV contrast Adverse Reaction (Uncoded 06/21/19 10:08) Vomiting Home Medications: Ambulatory Orders Medication Instructions Recorded Fluticasone 0.05% [Flonase Nasal 2 spray NASAL BID 09/30/16 [place]] levETIRAcetam tablet [Keppra 1,000 mg PO BID 09/06/17 tablet] Multivit-Min/Iron/Folic/Lutein 1 tab PO DAILY 03/21/19 [Centrum Silver Women Tablet] Albuterol Inhaler [Ventolin Hfa] 1 - 2 puff INHALATION Q4H PRN PRN 04/20/19 #1 inhaler Omeprazole 40 mg PO DAILY 05/31/19 Sucralfate [Carafate] 1 gm PO 4X/DAY 05/31/19 Aspirin E.C. [Ecotrin] 81 mg PO DAILY@0800 #30 tab 06/03/19 Gabapentin [Neurontin] 300 mg PO TIDCM #60 cap 06/03/19 Ibuprofen 400 mg PO Q6H PRN PRN 06/21/19 Ibuprofen/Diphenhydramine HCl 2 cap PO QHS 06/21/19 [Advil Pm Liqui-Gels] Melatonin/Pyridoxine HCl (B6) 1 tab PO QHS 06/21/19 [Melatonin 10 mg Tablet] Surgical History: appendectomy, cholecystectomy, hysterectomy, - - Multiple abdominal surgeries, including for kidney tumor, hysterectomy, cholecystectomy, endometriosis, brain aneursyms clamped and coiled, gastric pacemaker placement. 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 MEDICAL INSURANCE CLAIMS SPECIALIST History: No pertinent MEDICAL INSURANCE CLAIMS SPECIALIST history Lives: Spouse/ Significant Other Smoking Status: Former smoker - *Family History Maternal History Items: Diabetes Paternal History Items: Heart Disease Review of Systems Constitutional: Denies: Anorexia, Chills, Fever Eyes: Denies: Blurred vision, Double vision HEENT: Denies: Head Aches, Sinus Congestion, Sinus Drainage Cardiovascular: Reports: Chest Pain. Denies: Edema Respiratory: Denies: Cough, Shortness of breath at rest, Sputum production Gastrointestinal: Denies: Abdominal Pain, Nausea, Vomiting Genitourinary: Reports: Incontinence. Denies: Dysuria Musculoskeletal: Denies: Joint Pain, Joint Tenderness Skin: Denies: Rash, Wounds Neurological: Denies: Numbness, Tingling, Focal weakness Hematologic/ Lymphatic: Denies: Easy Bruising, Easy Bleeding Comment: All review systems are negative except for as mentioned above and in HPI. VTE Information - Inpt Only VTE Present on Admission: No VTE Mechan Device Prophylaxis: None VTE Pharm Prophylaxis ordered?: Yes Patient Problems: Active and Suspected Problems Neck pain (Acute) Trapezius muscle spasm (Acute) - Physical Exam Vitals/I&O's: Vital Signs Temp Pulse Resp BP Pulse Ox 36.3 C L 85 16 126/84 H 94 06/21/19 09:54 06/21/19 14:44 06/21/19 14:44 06/21/19 14:44 06/21/19 14:44 Oxygen Delivery Method Room Air Weight: 90.718 kg Body Mass Index (BMI) 29.5 Finger Stick Blood Glucose 129 General: Alert, - - Anxious. Afebrile. Tearful. HEENT: Atraumatic, PERRLA, EOMI, Normocephalic Oral: Moist Mucosa, No Gingival or Mucosal Lesions/ Ulcerations Neck: No Nodes, Thyroid Normal Size and Texture Lungs: Clear to auscultation, Normal air movement, No rhonchi, No wheeze, No rales Cardiovascular: Regular rate, Regular Rhythm, Normal S1, Normal S2, No murmurs Abdomen: Bowel Sounds Present, Soft, Non Tender, Non-Distended, No Hepato-splenomegaly, - - Diminished rectal tone though concern for limited effort. Extremities: No edema, No Calf Tenderness Skin: No rashes, No breakdown Musculoskeletal: No Tenderness to Palpation of Joints or Extremities, No Muscle Wasting, - - Exquisite tenderness over the left trapezius muscle Neurological: Cranial nerves II-XII grossly intact, Sensory exam intact to light touch and pain Psych/Mental Status: Agitated, Anxious Laboratory Results 06/21/19 12:53: WBC 10.1, RBC 5.43 H, Hgb 17.0 H, Hct 53.2 H, MCV 98.0, MCH 31.3, MCHC 32.0, RDW Std Deviation 46.5 H, RDW Coeff of Bere 12.9, Plt Count 377, MPV 9.4, Immature Gran % (Auto) 0.500, Neut % (Auto) 61.0, Lymph % (Auto) 30.8, [place] % (Auto) 6.2, Eos % (Auto) 0.8, Baso % (Auto) 0.7, Absolute Neuts (auto) 6.2, Absolute Lymphs (auto) 3.11, Nucleated RBC % 0 06/21/19 12:53: Sodium 141, Potassium 4.2, Chloride 107, Carbon Dioxide 28.0, Anion Gap 6, BUN 14, Creatinine 0.81, Estim Creat Clear Calc 86.84, Est GFR (MDRD) Af Amer 96, Est GFR (MDRD) Non-Af 79, BUN/Creatinine Ratio 17.3, Glucose 93, Calcium 9.1, Total Bilirubin 0.40, AST 15, ALT 27, Alkaline Phosphatase 223 H, Total Protein 8.1, Albumin 4.0, Globulin 4.1, Albumin/Globulin Ratio 1.0 Assessment/Plan All Active Problems Neck pain (Acute) Trapezius muscle spasm (Acute) Chest pain (Resolved) Generalized seizure disorder (Acute) Seizure (Acute) Basilar artery aneurysm (Resolved) 1. Left trapezius strain Patient has a myriad of complaints, including her pelvic region and saddle anesthesia and left leg weakness which are new though she has chronic issues with that. Explained to patient that I feel that she has trapezius muscle strain and will treat her with nonnarcotics. Also told her I would not be using narcotics because there is a concern that she may be having new stroke symptoms even though her initial CAT scan was negative. Patient unable to undergo an MRI because she has a gastric pacemaker but also the aneurysm coil in her brain Aminofen as well as cyclobenzaprine to help with muscle spasm Was concerned about the herniated disks in her back. I reviewed the CAT scans with her and her significant other in her room and there was no mention of any herniated disks in all the CAT scans that she had of her neck through lumbar region. I am concerned that the patient may be either malingering or seeking secondary gain. 2. Saddle anesthesia Concern is for cauda equina syndrome Patient does have reduced rectal tone there was mention in my physical exam is concerning for limited effort on her behalf I am concerned that patient may be seeing symptoms that would mandate her being further evaluated So patient will have a CT of her lumbar spine, as above unable to have an MRI because of the gastric pacemaker and coil. 3. Left-sided weakness Cannot determine if this is an acute worsening or just chronic symptoms or even just fictitious Patient will undergo a stroke work-up with a repeat head CT on the , echocardiogram, physical and outpatient therapy evaluation, neurology evaluation. 4. VTE prophylaxis with Lovenox. Code Visit Inpatient E&M: 88388 Init Hosp L3
--- NOTE | 2019-06-21 17:22 | CT_ITS ---
STUDY: CT LUMBAR SPINE WITHOUT CONTRAST REASON FOR EXAM: Female, 49 years old. Back pain. RADIATION DOSAGE (If Supplied By Facility): CTDIvol = ( 40.42 ) mGy, DLP = ( 1497.75 ) mGycm TECHNIQUE: The patient was scanned in a multi detector CT scanner. High resolution transaxial imaging was performed. Images were obtained from T11 to sacrum. Sagittal and coronal images were reconstructed. Individualized dose optimization techniques were used for this CT. COMPARISON: June 01, 2019 FINDINGS: Normal lumbar lordosis. There is no substantial scoliosis. Normal vertebrae of the lumbar spine. L1-2: Normal endplates. Normal disc height and morphology. Normal bilateral facet joints. Normal central canal and bilateral lateral recesses. Normal bilateral intervertebral neural foramina. L2-3: Normal endplates. Normal disc height and morphology. Normal bilateral facet joints. Normal central canal and bilateral lateral recesses. Normal bilateral intervertebral neural foramina. L3-4: There is a posterior disc osteophyte associated with bilateral narrowing of the 2neural foramina. L4-5: Status post posterior decompression and transpedicular fixation with anatomic alignment no spinal stenosis nor neural foraminal stenosis. L5-S1: Status post posterior decompression transpedicular fixation with anatomic alignment and no spinal stenosis nor neural foraminal stenosis. There are scattered diverticula arising from the sigmoid colon. CT/Spine Lumbar without Contrast IMPRESSION: Grossly stable postsurgical changes of L4-S1. L3/L4 degenerative changes. Electronically Signed: Nellie Mares MD at 19:29 EDT Tel , Service support ,
--- NOTE | 2019-06-21 17:22 | ECHOCS_ITS ---
Reason For Study: TIA/CVA Procedure This was a 2D Doppler, Color Flow transthoracic echocardiogram. Exam performed portable in patient room. Left Ventricle Normal size and thickness. The estimated ejection fraction is 65 %. Normal diastology for age. No regional wall motion abnormalities noted. Right Ventricle Mildly dilated right ventricle. Normal systolic function. Atria Normal left atrium. Normal right atrium. Normal atrial septum. Bubble contrast study negative for right to left interatrial shunt. Mitral Valve The mitral valve is structurally normal. No prolapse or stenosis seen. Tricuspid Valve Normal tricuspid valve. Unable to estimate RV systolic pressure due to insufficient tricuspid regurgitant envelope. Aortic Valve Normal aortic valve. Trisinus/trileaflet aortic valve. Pulmonic Valve Normal pulmonic valve. Great Vessels Normal aortic root. Normal arch. Normal inferior vena cava. Inferior vena cava collapse with sniff. Medication Diluted definity 4ml given slow IV push to enhance endocardial definition. Performed a rapid injection of agitated mix of 9 cc saline and 1cc air to assess for atrial septal defect. MMode/2D Measurements & Calculations LVIDd: 4.8 cm IVSd: 0.93 cm Ao root diam: 3.2 cm LVIDs: 3.3 cm LVPWd: 0.86 cm RVDd: 3.6 cm FS: 30.5 % LAV(MOD-sp2): 19.5 ml LVAd ap4: 35.5 cm2 SV(MOD-sp4): 72.9 ml EDV(MOD-sp4): 125.9 ml EDV(sp4-el): 131.4 ml LVAs ap4: 21.4 cm2 ESV(MOD-sp4): 53.0 ml ESV(sp4-el): 54.5 ml EF(MOD-sp4): 57.9 % EF(sp4-el): 58.5 % SV(sp4-el): 76.9 ml LA dimension(2D): 2.6 cm Time Measurements MV dec time: 0.26 sec Doppler Measurements & Calculations MV E max murali: 58.8 cm/sec Lat Peak E' Murali: 8.4 cm/sec Med Peak E' Murali: 7.8 cm/sec MV A max murali: 55.1 cm/sec E/E' lat: 7.0 E/E' med: 7.6 MV E/A: 1.1 Ao V2 max: 101.3 cm/sec LV V1 max: 72.0 cm/sec PA V2 max: 81.9 cm/sec Ao max P.1 mmHg LV V1 max P.1 mmHg Interpretation Summary The estimated ejection fraction is 65 %. Normal diastology for age. Bubble contrast study negative for right to left interatrial shunt. Unable to estimate RV systolic pressure due to insufficient tricuspid regurgitant envelope. Compared to echo report dated 12/29/2016, no appreciable changes noted. The study was technically difficult. Contrast injection was performed. Ordering Physician: Alfred Sotomayor Referring Physician: JAYDE SPENCER Performed By: Irina Burnett RDCS
[2019-06-21] MEDS: Gabapentin 300 MG Capsule PO (18:38)
[2019-06-21] MEDS: cycloBENZAPRine HCl 5 MG TABLET PO (18:41)
[2019-06-21] MEDS: Ibuprofen 400 MG Tablet PO (18:41)
[2019-06-21] MEDS: Sucralfate 1 GM Tablet PO (22:12)
[2019-06-21] MEDS: Fluticasone 0.05% 1 SPRAY NASAL.SRY 2 SPRAY NASAL (22:12)
[2019-06-21] MEDS: levETIRAcetam 1,000 MG Tablet 1000 MG PO (22:12)
[2019-06-21] MEDS: MELATONIN 10 MG TABLET PO (22:12)
[2019-06-22] VITALS (9 sets, daily range): BP systolic 113–135; BP diastolic 62–84; PULSE 68–86; RESP 14–18; TEMP 36.4–36.8; O2SAT 95–98; BMI 30.3
[2019-06-22] MEDS: Ibuprofen 400 MG Tablet PO ×2 (01:36→10:41)
[2019-06-22] MEDS: cycloBENZAPRine HCl 5 MG TABLET PO (05:07)
--- NOTE | 2019-06-22 05:55 | CT_ITS ---
STUDY: CT BRAIN WITHOUT CONTRAST REASON FOR EXAM: Female, 49 years old. Left-sided weakness. History of headaches. Patient also has a history of prior coiling of the basilar artery tip. RADIATION DOSAGE (If Supplied By Facility): CTDIvol = ( 44.99 ) mGy, DLP = ( 796.11 ) mGycm TECHNIQUE: Transaxial CT imaging of the brain was performed without administration of intravenous contrast material. Individualized dose optimization techniques were used for this CT. COMPARISON: Comparison is made with prior study June 21, 2019. FINDINGS: Normal soft tissue structures. Normal calvarium. Once again, there is evidence of endovascular coiling of the basilar tip aneurysm. Normal size ventricles and extra-axial spaces for the patient's age. Normal white matter tracts of the cerebral hemispheres. Normal basal ganglia and thalami. Normal brainstem. Normal cerebellum. There is no intracranial hemorrhage. There are no findings of an acute ischemic infarction. Normal visualized paranasal sinuses. CT/Brain/Head without Contrast IMPRESSION: Stable examination. Electronically Signed: Luiz Neff, at 8:26 EDT , Service support ,
[2019-06-22] MEDS: Sucralfate 1 GM Tablet PO ×3 (06:21→15:51)
[2019-06-22 06:44] LABS: Cholesterol 143 mg/dL (200); High Density Lipoprotein 41 mg/dL; Triglycerides 107 mg/dL; Very Low Density Lipoprotein 21 mg/dL (5-40)
[2019-06-22] MEDS: levETIRAcetam 1,000 MG Tablet 1000 MG PO (10:40)
[2019-06-22] MEDS: Multivitamins,Ther W-Minerals Tablet 1 TABLET PO (10:41)
[2019-06-22] MEDS: Aspirin E.C. 81 MG Tablet PO (10:41)
[2019-06-22] MEDS: Pantoprazole Sodium 40 MG Tablet PO (10:41)
[2019-06-22] MEDS: Gabapentin 300 MG Capsule PO ×2 (10:42→15:51)
[2019-06-22] MEDS: dexAMETHasone 4 MG/ML Vial IV (11:09)
[2019-06-22] MEDS: 0.9% Saline Lock 10 ML Syringe IV (11:10)
--- NOTE | 2019-06-22 11:17 | CASEMGMT ---
CLIVE VALENZUELA assessment: Face to Face with patient for initial transition planning/care coordination assessment. CLIVE VALENZUELA introduced self and role at [facility], pt voices understanding and consents to assessment at this time. Pt is lying in bed in no distress at this time. Pt is A/Ox4 at this time and answers all questions appropriately at this time. Care providers, pharmacy, and demographics verified/updated at this time. PCP: Gertrude Specialists: SLIME Robledo; Gastroparesis pacer physician at [facility] Pharmacy: Janeen Brooks [facility] Living Will/HPOA: Pt states does not have LW but does have HPOA and her sig other, Jeff Ramírez, is HPOA. Pt is aware that HPOA is not on file at this time and that if pt is not able to make decisions for herself then her parents will be the ones making decisions until her HPOA is on file at [facility], voices understanding. LNOK: Jeff Ramírez, sig other; Oskar/Rosana Kong, parents Living Arrangements: Pt states lives alone in 2 story home with bedroom on 1st floor and full bath on 2nd floor and states no concerns at home at this time. Pt states is independent with ADL's. Transportation: Pt states walks wherever she needs to go or family drives her and states no transportation concerns at this time. DME/HHC: Pt states has a walker and nebulizer and states no need for any further DME at this time. Pt states has had HHC in the past and has been to [facility] in the past. Pt states has been up to bathroom several times without difficulty but per Katrin DUFFY, pt keeps constantly requesting pain meds. Pt states no concerns with going home at time of discharge. Pt is disabled. Pt states still smoking about 4-5cigarettes/day but does not drink ETOH. Pt states no further concerns/needs at this time. CM to follow for any further discharge planning/needs. Advised pt to ask for CM if any further questions/concerns/needs arise, voices understanding. Pt Goal: [place] VALENZ[place]ELA
--- NOTE | 2019-06-22 13:28 | NURSING ---
Read and Reviewed SN documentation
--- NOTE | 2019-06-22 13:44 | PCM.PROGNOTE ---
Patient Problems: Active and Suspected Problems Neck pain (Acute) Trapezius muscle spasm (Acute) Subjective: Patient seen and examined. Tearful. Complains of mid lower back pain. Denies sensory loss lower extremities or loss of bowel or bladder function. - Physical Exam Vitals/I&O's: Vital Signs Temp Pulse Resp BP Pulse Ox 98.3 F 79 16 135/84 H 97 06/22/19 12:28 06/22/19 12:28 06/22/19 12:28 06/22/19 12:28 06/22/19 12:28 Oxygen Delivery Method Room Air Weight: 205 lb 7.533 oz Body Mass Index (BMI) 30.3 Finger Stick Blood Glucose 129 Intake and Output for Last 24 Hours 06/20/19 06/21/19 06/22/19 23:59 23:59 23:59 Intake Total 1300 / 1300 320 / 320 Balance 1300 / 1300 320 / 320 General: Alert, Oriented x3, Cooperative HEENT: Atraumatic, PERRLA, EOMI, Normocephalic Neck: Supple, No JVD, Negative Carotid Bruits Lungs: Clear to auscultation, Normal air movement Cardiovascular: Regular rate, Regular Rhythm, Normal S1, Normal S2, No murmurs Abdomen: Bowel Sounds Present, Soft, Non Tender, Non-Distended Extremities: No clubbing, No cyanosis, No edema, Capillary Refill Less than 3 Seconds Skin: No rashes, No breakdown Musculoskeletal: No Tenderness to Palpation of Joints or Extremities, - - Left mid back tenderness to palpation. Neurological: Cranial nerves II-XII grossly intact, Neuro grossly intact Psych/Mental Status: Normal Affect, Appropriate Laboratory Results 06/21/19 17:40: Troponin I < 0.015 06/22/19 06:10: Triglycerides 107, Cholesterol 143, LDL Cholesterol 81, VLDL Cholesterol 21, HDL Cholesterol 41 Current Medications Albuterol Sulfate (Ventolin Aerosols) 2.5 mg INHALATION Q4H PRN PRN PRN Reason: WHEEZING Aspirin (Ecotrin) 81 mg PO DAILY@0800 ADAM Last Admin: 06/22/19 10:41 Dose: 81 mg Documented by: Cyclobenzaprine HCl (Cyclobenzaprine Hcl) 5 mg PO TID PRN PRN Reason: MUSCLE SPASM Last Admin: 06/22/19 05:07 Dose: 5 mg Documented by: Dexamethasone Sodium Phosphate (Decadron) 4 mg IV Q6 [facility] Last Admin: 06/22/19 11:09 Dose: 4 mg Documented by: Dextrose (D50w Syringe) 0 gm IV X1 PRN; Protocol PRN Reason: Hypoglycemia Fluticasone Propionate (Flonase Nasal [place]) 2 spray NASAL BID [facility] Last Admin: 06/22/19 10:41 Dose: Not Given Documented by: Gabapentin (Neurontin) 300 mg PO TIDCM [facility] Last Admin: 06/22/19 10:42 Dose: 300 mg Documented by: Glucagon () 1 mg IM .X1 PRN PRN Reason: Hypoglycemia Sodium Chloride () 250 mls @ 15 mls/hr IV .[id number] PRN PRN Reason: Saline Flush Ibuprofen (Motrin) 400 mg PO Q6H PRN PRN PRN Reason: Pain Score 1-10/10 Last Admin: 06/22/19 10:41 Dose: 400 mg Documented by: Levetiracetam (Keppra Tablet) 1,000 mg PO BID [facility] Last Admin: 06/22/19 10:40 Dose: 1,000 mg Documented by: Melatonin (Melatonin) 10 mg PO QHS [facility] Last Admin: 06/21/19 22:12 Dose: 10 mg Documented by: Multivitamins/Minerals (Multivitamin With Minerals) 1 tablet PO DAILY@0800 [facility] Last Admin: 06/22/19 10:41 Dose: 1 tablet Documented by: Nutritional Formula (Lactose Free) (Ensure Enlive) 120 ml PO 4X/DAY [facility] Last Admin: 06/22/19 13:08 Dose: Not Given Documented by: Pantoprazole Sodium (Protonix) 40 mg PO DAILY [facility] Last Admin: 06/22/19 10:41 Dose: 40 mg Documented by: Sodium Chloride () 10 - 40 ml IV UD PRN PRN Reason: SALINE FLUSH Last Admin: 06/22/19 11:10 Dose: 10 ml Documented by: Sucralfate (Carafate) 1 gm PO 1HR_ACHS [facility] Last Admin: 06/22/19 11:09 Dose: 1 gm Documented by: Medical Necessity - Tobacco Use Smoking Status: Current every day smoker Tobacco Use: Cigarettes Assessment/Plan All Active Problems Neck pain (Acute) Trapezius muscle spasm (Acute) Chest pain (Resolved) Generalized seizure disorder (Acute) Seizure (Acute) Basilar artery aneurysm (Resolved) 1. Acute on chronic intractable cervical and lumbar back pain-lumbar CT with degenerative changes. Recent cervical spine CT showed status post anterior cervical discectomy and fusion at C6 and C7 with mild degenerative disc disease at C4-C5 and C5-C6. Recent CT of thoracic spine shows mild dextroscoliosis with no spinal stenosis or neural foraminal stenosis. PT/OT. Continue home PRN Valium. Continue gabapentin regimen [address] Robledo consulted. Patient reports she has outpatient back injection scheduled for tomorrow. 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 Neurology consulted during admission. Patient unable to have MRI due to gastric pacemaker. Patient denies loss of bowel or bladder function. Denies lower extremity numbness. She reports chronic left-sided weakness. 2. History of seizures-continue Keppra regimen. 3. History of basal artery aneurysm-follows with Dr. Escobedo. 4. History of gastroparesis status post gastric pacemaker 5. History of paroxysmal atrial fibrillation-not on rate control or oral anticoagulation. DVT prophylaxis- SCDs This patient was seen by SHAILA Song under the supervision of Dr. Sandoval.
--- NOTE | 2019-06-22 14:06 | CASEMGMT ---
As per CM, she let pt know that LW/POA forms are not on file. Pt had indicated her significant other is POA. She explained to pt that without the papers on file, if pt was not able to make decisions it would default to her parents. MALENA Chávez
[2019-06-22] MEDS: traMADol 50 MG Tablet PO (14:28)
--- NOTE | 2019-06-22 14:37 | DCINST_ITS ---
- Discharge Diagnoses Current Active Problems: Current Active and Chronic Problems Back pain You will use the following diet at home:: No restrictions Discharge Activity: Return to Normal Activity Allergies/Adverse Reactions: Allergies Penicillins Allergy (Verified 06/21/19 10:08) Anaphylaxis propoxyphene napsylate [From Darvocet-N 100] Allergy (Verified 06/21/19 10:08) Rash hydrocodone bitartrate [From Vicodin] Adverse Reaction (Verified 06/21/19 10:08) Itching venom-honey bee [bee venom (honey bee)] Adverse Reaction (Verified 06/21/19 10:08) Chest tightness PLASTIC TAPE Allergy (Uncoded 06/21/19 10:08) blistering IV contrast Adverse Reaction (Uncoded 06/21/19 10:08) Vomiting Medications to take at Discharge Fluticasone 0.05% [Flonase Nasal [place]] 2 spray NASAL BID 09/30/16 levETIRAcetam tablet [Keppra tablet] 1,000 mg PO BID 09/06/17 Multivit-Min/Iron/Folic/Lutein [Centrum Silver Women Tablet] 1 tab PO DAILY 03/21/19 Albuterol Inhaler [Ventolin Hfa] 1 - 2 puff INHALATION Q4H PRN PRN #1 inhaler 04/20/19 Omeprazole 40 mg PO DAILY 05/31/19 Sucralfate [Carafate] 1 gm PO 4X/DAY 05/31/19 Aspirin E.C. [Ecotrin] 81 mg PO DAILY@0800 #30 tab 06/03/19 Gabapentin [Neurontin] 300 mg PO TIDCM #60 cap 06/03/19 Ibuprofen 400 mg PO Q6H PRN PRN 06/21/19 Ibuprofen/Diphenhydramine HCl [Advil Pm Liqui-Gels] 2 cap PO QHS 06/21/19 Melatonin/Pyridoxine HCl (B6) [Melatonin Tr 10 mg Tablet] 1 tab PO QHS 06/21/19 Acetaminophen [Tylenol] 1,000 mg PO Q8 tab 06/22/19 Primary Care Physician: Amandeep Loredo [Primary Care Provider] - Please follow up with your Primary Care Physician in: 1 Week Test Results: Test results from this visit will be discussed in further detail at your follow- up appointment, if applicable. Please Follow Up With: Mandy Robledo MD When: 06/23/19, as scheduled Proposed Discharge Date: 06/22/19
--- NOTE | 2019-06-22 14:40 | PCM.DC.SUM ---
Discharge Date and Diagnosis Date of Admission: 06/21/19 Date of Discharge: 06/22/19 - Primary Discharge Diagnosis Active and Suspected Problems 1. Acute on chronic intractable cervical and lumbar back pain 2. History of seizures 3. History of basal artery aneurysm 4. History of gastroparesis status post gastric pacemaker 5. History of paroxysmal atrial fibrillation 6. 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 L3/L4 degenerative changes. Electronically Signed: Nellie Mares MD at 19:29 EDT Tel , Service support , Brain CT 06/22/19 05:55 IMPRESSION: Stable examination. Electronically Signed: Luiz Neff, at 8:26 EDT , Service support , Operations: None Procedures: None Summary of Care Provided: The patient is a 49 year old F admitted 06/21/2018 due to neck and back pain. 1. Acute on chronic intractable cervical and lumbar back pain-lumbar CT with degenerative changes. Recent cervical spine CT showed status post anterior cervical discectomy and fusion at C6 and C7 with mild degenerative disc disease at C4-C5 and C5-C6. Recent CT of thoracic spine shows mild dextroscoliosis with no spinal stenosis or neural foraminal stenosis. Continue gabapentin regimen 300 mg 3 times daily. Patient reports she has outpatient back injection scheduled for tomorrow. 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 Patient unable to have MRI due to gastric pacemaker. Patient denies loss of bowel or bladder function. Denies lower extremity numbness. She reports chronic left-sided weakness. Patient ambulating without difficulty. Plan for discharge home with follow-up with pain management, to have back injection tomorrow morning. Follow-up with primary care provider in 1 week. 2. History of seizures-continue Keppra regimen. 3. History of basal artery aneurysm-follows with Dr. Escobedo. 4. History of gastroparesis status post gastric pacemaker 5. History of paroxysmal atrial fibrillation-not on rate control or oral anticoagulation. 6. Malingering behavior-patient repeatedly asking for narcotics, tearful. Recommend psychiatric referral by primary care provider. General: Alert, Oriented x3, Cooperative HEENT: Atraumatic, PERRLA, EOMI, Normocephalic Neck: Supple, No JVD, Negative Carotid Bruits Lungs: Clear to auscultation, Normal air movement Cardiovascular: Regular rate, Regular Rhythm, Normal S1, Normal S2, No murmurs Abdomen: Bowel Sounds Present, Soft, Non Tender, Non-Distended Extremities: No clubbing, No cyanosis, No edema, Capillary Refill Less than 3 Seconds Skin: No rashes, No breakdown Musculoskeletal: No Tenderness to Palpation of Joints or Extremities, - - Left mid back tenderness to palpation. Neurological: Cranial nerves II-XII grossly intact, Neuro grossly intact Psych/Mental Status: Normal Affect, Appropriate Patient seen and examined prior to discharge. Physical assessment as noted above. Patient is stable for discharge with follow up recommendations as noted above. This patient was seen by SHAILA Song under the supervision of Dr. Sandoval. - Physical Exam Vitals/I&O's: Vital Signs Temp Pulse Resp BP Pulse Ox 98.3 F 79 16 135/84 H 97 06/22/19 12:28 06/22/19 12:28 06/22/19 12:28 06/22/19 12:28 06/22/19 12:28 Oxygen Delivery Method Room Air Weight: 205 lb 7.533 oz Body Mass Index (BMI) 30.3 Finger Stick Blood Glucose 129 Intake and Output for Last 24 Hours 06/20/19 06/21/19 06/22/19 23:59 23:59 23:59 Intake Total 1300 / 1300 320 / 320 Balance 1300 / 1300 320 / 320 Laboratory Results 06/21/19 17:40: Troponin I < 0.015 06/22/19 06:10: Triglycerides 107, Cholesterol 143, LDL Cholesterol 81, VLDL Cholesterol 21, HDL Cholesterol 41 Current Medications Acetaminophen (Tylenol) 1,000 mg PO Q8 [facility] Albuterol Sulfate (Ventolin Aerosols) 2.5 mg INHALATION Q4H PRN PRN PRN Reason: WHEEZING Aspirin (Ecotrin) 81 mg PO DAILY@0800 [facility] Last Admin: 06/22/19 10:41 Dose: 81 mg Documented by: Cyclobenzaprine HCl (Cyclobenzaprine Hcl) 5 mg PO TID PRN PRN Reason: MUSCLE SPASM Last Admin: 06/22/19 05:07 Dose: 5 mg Documented by: Dexamethasone Sodium Phosphate (Decadron) 4 mg IV Q6 [facility] Last Admin: 06/22/19 11:09 Dose: 4 mg Documented by: Dextrose (D50w Syringe) 0 gm IV X1 PRN; Protocol PRN Reason: Hypoglycemia Fluticasone Propionate (Flonase Nasal [place]) 2 spray NASAL BID [facility] Last Admin: 06/22/19 10:41 Dose: Not Given Documented by: Gabapentin (Neurontin) 300 mg PO TIDCM [facility] Last Admin: 06/22/19 10:42 Dose: 300 mg Documented by: Glucagon () 1 mg IM .X1 PRN PRN Reason: Hypoglycemia Sodium Chloride () 250 mls @ 15 mls/hr IV .[id number] PRN PRN Reason: Saline Flush Ibuprofen (Motrin) 400 mg PO Q6H PRN PRN PRN Reason: Pain Score 1-10/10 Last Admin: 06/22/19 10:41 Dose: 400 mg Documented by: Levetiracetam (Keppra Tablet) 1,000 mg PO BID [facility] Last Admin: 06/22/19 10:40 Dose: 1,000 mg Documented by: Melatonin (Melatonin) 10 mg PO QHS [facility] Last Admin: 06/21/19 22:12 Dose: 10 mg Documented by: Multivitamins/Minerals (Multivitamin With Minerals) 1 tablet PO DAILY@0800 [facility] Last Admin: 06/22/19 10:41 Dose: 1 tablet Documented by: Nutritional Formula (Lactose Free) (Ensure Enlive) 120 ml PO 4X/DAY [facility] Last Admin: 06/22/19 13:08 Dose: Not Given Documented by: Pantoprazole Sodium (Protonix) 40 mg PO DAILY [facility] Last Admin: 06/22/19 10:41 Dose: 40 mg Documented by: Sodium Chloride () 10 - 40 ml IV UD PRN PRN Reason: SALINE FLUSH Last Admin: 06/22/19 11:10 Dose: 10 ml Documented by: Sucralfate (Carafate) 1 gm PO 1HR_ACHS ADAM Last Admin: 06/22/19 11:09 Dose: 1 gm Documented by: Discharge Diet: No Restrictions Discharge Activity: Return to Normal Activity Home Medications: Medications to take at Discharge Fluticasone 0.05% [Flonase Nasal [place]] 2 spray NASAL BID 09/30/16 levETIRAcetam tablet [Keppra tablet] 1,000 mg PO BID 09/06/17 Multivit-Min/Iron/Folic/Lutein [Centrum Silver Women Tablet] 1 tab PO DAILY 03/21/19 Albuterol Inhaler [Ventolin Hfa] 1 - 2 puff INHALATION Q4H PRN PRN #1 inhaler 04/20/19 Omeprazole 40 mg PO DAILY 05/31/19 Sucralfate [Carafate] 1 gm PO 4X/DAY 05/31/19 Aspirin E.C. [Ecotrin] 81 mg PO DAILY@0800 #30 tab 06/03/19 Gabapentin [Neurontin] 300 mg PO TIDCM #60 cap 06/03/19 Ibuprofen 400 mg PO Q6H PRN PRN 06/21/19 Ibuprofen/Diphenhydramine HCl [Advil Pm Liqui-Gels] 2 cap PO QHS 06/21/19 Melatonin/Pyridoxine HCl (B6) [Melatonin Tr 10 mg Tablet] 1 tab PO QHS 06/21/19 Acetaminophen [Tylenol] 1,000 mg PO Q8 tab 06/22/19 Primary Care Physician: Amandeep Loredo [Primary Care Provider] - Please follow up with your Primary Care Physician in: 1 Week Please Follow Up With: Mandy Robledo MD When: 06/23/19, as scheduled Disposition: Home Minutes spent on discharge:: 35 Patient Condition:: Stable Medical Necessity - Tobacco Use Smoking Status: Current every day smoker Tobacco Use: Cigarettes Meaningful Use Info Meaningful Use Diagnoses (Choose all that apply): None applicable
--- NOTE | 2019-06-22 15:06 | PHA.DC.MR ---
Pharmacy Service has performed discharge medication reconciliation for this patient. Home Medications Fluticasone 0.05% [Flonase Nasal [place]] 2 spray NASAL BID 09/30/16 levETIRAcetam tablet [Keppra tablet] 1,000 mg PO BID 09/06/17 Multivit-Min/Iron/Folic/Lutein [Centrum Silver Women Tablet] 1 tab PO DAILY 03/21/19 Albuterol Inhaler [Ventolin Hfa] 1 - 2 puff INHALATION Q4H PRN PRN #1 inhaler 04/20/19 Omeprazole 40 mg PO DAILY 05/31/19 Sucralfate [Carafate] 1 gm PO 4X/DAY 05/31/19 Aspirin E.C. [Ecotrin] 81 mg PO DAILY@0800 #30 tab 06/03/19 Gabapentin [Neurontin] 300 mg PO TIDCM #60 cap 06/03/19 Ibuprofen 400 mg PO Q6H PRN PRN 06/21/19 Ibuprofen/Diphenhydramine HCl [Advil Pm Liqui-Gels] 2 cap PO QHS 06/21/19 Melatonin/Pyridoxine HCl (B6) [Melatonin Tr 10 mg Tablet] 1 tab PO QHS 06/21/19 Acetaminophen [Tylenol] 1,000 mg PO Q8 tab 06/22/19 The patient's discharge medication list was reviewed for discrepancies and discrepancies were resolved.
--- NOTE | 2019-06-22 16:38 | CHAPLAIN ---
Type of Pastoral Visit _x__ Initial Visit ___ Follow-up Visit ___ On-call Visit ___ General Patient Visit ___ Spiritual Assessment ___ Family Conference ___ Bereavement ___ Rapid Response ___ Code Blue ___ Other (describe below) Pastoral Care Referral From _x__ Patient ___ Family ___ Nurse ___ Physician ___ Steamblaster ___ Transitions Manager Rn ___ Other (describe below) Sacrament/Intervention _x__ Active listening ___ Anointing ___ Rastafari ___ Bereavement ___ Communion _x__ Miriam exploration ___ _x__ Life review _x__ Prayer ___ Reconciliation ___ Sacrament of Sick _x__ Supportive presence ___ Wedding ___ Other (describe below) Pastoral Comments
== END 2019-06-22 14:39 | disposition home or self-care (01) ==
LOC: ED 10:30 → MS3 14:40 → PCU 06-22 07:10
PROVIDERS: Emergency Provider Emergency Medicine; Family Provider Family Medicine; PCP Family Medicine; Visit Provider Internal Medicine
DX: G89.29 Other chronic pain (principal); M54.2 Cervicalgia; M54.5 Low back pain; Z76.5 Malingerer [conscious simulation]; I48.0 Paroxysmal atrial fibrillation; K31.84 Gastroparesis; S29.012A Strain of muscle and tendon of back wall of thorax, initial encounter; X58.XXXA Exposure to other specified factors, initial encounter; Y92.9 Unspecified place or not applicable; G40.909 Epilepsy, unspecified, not intractable, without status epilepticus; F43.12 Post-traumatic stress disorder, chronic; F32.9 Major depressive disorder, single episode, unspecified; F17.210 Nicotine dependence, cigarettes, uncomplicated; R20.2 Paresthesia of skin; M62.830 Muscle spasm of back; I69.354 Hemiplegia and hemiparesis following cerebral infarction affecting left non-dominant side; R32 Unspecified urinary incontinence; Z79.51 Long term (current) use of inhaled steroids; Z79.899 Other long term (current) drug therapy; Z79.82 Long term (current) use of aspirin
CPT/HCPCS: 36415; 70450; 72131; 80053; 80061; 84484; 85025; 93005; 93306; 94762; 96374; 96375; 97161; 97166; 97802; 99218; 99284; 99406; J7030; Q9957; A4216; C8929; G0378; J2405

== ENCOUNTER 2019-09-02 15:32 | Emergency (ER) | payer MEDICARE, SELFPAY ==
[2019-09-02 15:32] VITALS: BP 158/73; PULSE 91; RESP 16; TEMP 36.9; O2SAT 96; BMI 29.5; BMI 30.4
--- NOTE | 2019-09-02 16:20 | ED.DCSUM_ITS ---
- ER Visit Summary Date of Service: 09/02/19 Chief Complaint: Back pain History of Present Illness: The patient is a 49 F who presents with back pain that has been constant for the past 5 days. Patient states she was putting dishes away when she twisted and felt pain in her lower thoracic area. Patient states her pain radiates down her right gluteal area to her right medial thigh and lower leg. Patient admits to some tingling over the fourth and fifth toes of the right foot. Patient states her pain is worse with ambulation and movement. Patient states her pain improves when she lays still. Patient states her pain right also radiates into her lower abdomen. Patient denies any dysuria or hematuria. Patient denies any urinary or stool incontinence. Patient denies any weakness of her lower extremities. Physical Examination: Vital signs are stable. Patient is afebrile. Patient is in no acute distress. Musculoskeletal exam reveals tenderness over the lower thoracic spine and paraspinal area. There is no edema or ecchymosis. There is no bony crepitance or step-off. Range of motion was limited in all motions of the thoracic spine secondary to pain. Strength is 5/5 bilaterally in lower extremities. There are no sensory deficits noted. Deep tendon reflexes are 2+/4 bilaterally in the lower extremities. Emergency Department Course and Treatment: Patient was given an injection of morphine here. Patient was instructed to continue her pain medications as previously prescribed. Patient was instructed to follow-up with Dr. Robledo for further management of her pain. Patient understood and was agreeable with the plan. All questions were answered. Disposition: Discharge home Impression: Acute thoracic strain This note was generated with [employer] dictation software. It may contain incorrect words, spelling, and punctuation that were not noted in review of the chart prior to signing ED Disposition - Plan for ED Patient: Disposition: Home or Assisted Living Diagnosis: Acute thoracic myofascial strain Instructions: Back Sprain/Strain Referrals: Amandeep Loredo [Primary Care Provider] - 5-7 Days Mandy Robledo MD [STAFF PHYSICIAN] - 3-5 Days
[2019-09-02] MEDS: Morphine 4 MG/ML Syringe IM (16:25)
[2019-09-02 17:05] VITALS: BP 155/89; PULSE 81; RESP 17; O2SAT 98
--- NOTE | 2019-09-02 17:05 | ED.RN ---
DISCHARGE INSTRUCTIONS GIVEN TO AND REVIEWED WITH PATIENT, PATIENT DENIES QUESTIONS OR CONCERNS AND VOICES UNDERSTANDING OF DISCHARGE INSTRUCTIONS.
--- NOTE | 2019-09-02 17:25 | ED.RN ---
PT TO WAITING ROOM VIA WHEELCHAIR TO WAIT FOR RIDE HOME.
== END 2019-09-02 17:25 | disposition home or self-care (01) ==
LOC: ED 16:25
PROVIDERS: Emergency Provider Emergency Medicine; Family Provider Family Medicine; PCP Family Medicine
DX: S29.012A Strain of muscle and tendon of back wall of thorax, initial encounter (principal); X50.1XXA Overexertion from prolonged static or awkward postures, initial encounter; Y93.89 Activity, other specified; I48.0 Paroxysmal atrial fibrillation; G40.909 Epilepsy, unspecified, not intractable, without status epilepticus; Z79.82 Long term (current) use of aspirin; Z87.891 Personal history of nicotine dependence; Z86.73 Personal history of transient ischemic attack (TIA), and cerebral infarction without residual deficits
CPT/HCPCS: 96372; 99282

== ENCOUNTER 2019-09-14 19:46 | Emergency (ER) | payer MEDICARE, SELFPAY ==
[2019-09-02 15:32] VITALS: BMI 30.4
[2019-09-14 19:47] VITALS: BP 137/90; PULSE 90; RESP 18; TEMP 36.7; O2SAT 97; BMI 31.0
[2019-09-14 20:08] LABS: Bacteria 0 SEEN /hpf (None Seen); Color, Urine Yellow (Yellow); Glucose, Dipstick Normal (Normal); Ketone-Dipstick Negative (Negative); Leukocyte Esterase-Dipstick 25 /ul (Negative); Mucous, Urine 0 SEEN /hpf (<or=2+); Nitrite-Dipstick Negative (Negative); Occult Blood-Urine 250 /ul (Negative); Protein-Dipstick Negative (Negative); Squamous Epithelial Cells - UA 0 SEEN /hpf (5-10); Urine Bilirubin Dipstick Negative (Negative); Urine Clarity Sl. Cloudy (Clear); Urine Urobilinogen Normal (Normal)
[2019-09-14 20:16] LABS: Red Blood Cells-Urine 5-10 SEEN /hpf (0-5); White Blood Cells 0-5 SEEN /hpf (0-5)
[2019-09-14 20:54] LABS: Absolute Lymphocyte Count 3.32 X10^3/uL (0.83-4.51); Basophil# 0.06 X10^3/uL; Basophil% 0.5 % (0-1); Eosinophil# 0.06 X10^3/uL; Eosinophils% 0.5 % (0-5); Hematocrit 46.6 % (37-47); Hemoglobin 15.6 g/dL (12.0-15.0); Lymphocyte # 3.32 X10^3/ul (4.0); Mean Corp Hgb Conc 33.5 g/dL (32-36); Mean Corpuscular Hgb 32.2 pg (27.0-32.0); Mean Corpuscular Volume 96.1 fL (81-99); Mean Platelet Vol. 9.6 fl (6.2-12.0); Monocyte# 0.78 X10^3/uL; Monocyte% 6.3 % (0-10); NRBC Flagged by Analyzer 0 % (0-5); Neutrophil # 8.04 X10^3/uL (2.7-7.7); Neutrophil % 65.3 % (47-70); Platelet Count 308 K/mm3 (150-450); RBC Distribution Width CV 12.6 % (11.6-14.6); RBC Distribution Width SD 45.1 fl (35.1-43.9); Red Blood Count 4.85 M/mm3 (4.2-5.4); White Blood Count 12.3 K/mm3 (4.4-11.0)
[2019-09-14 21:08] LABS: Anion Gap 5 (5-15); BUN 9 mg/dL (7-18); BUN/Creat Ratio 9.4 RATIO (10-20); Calcium,Total 9.3 mg/dL (8.5-10.1); Chloride 109 mmol/L (98-107); Creatinine, Serum 0.96 mg/dL (0.55-1.02); EST Glomerular Filtration Rate 65 mL/min (>60); Est Glom Filt Rate - Afr Amer 79 mL/min (>60); Estimated Creatinine Clearance 73.27 ml/min; Glucose 75 mg/dL (74-106); Potassium 3.6 mmol/L (3.5-5.1); Sodium Level 141 mmol/L (136-145)
--- NOTE | 2019-09-14 21:18 | CT_ITS ---
STUDY: CT ABDOMEN AND PELVIS WITHOUT CONTRAST REASON FOR EXAM: Female, 49 years old. Left flank pain and hematuria. TECHNIQUE: Transaxial images were obtained from the dome of the diaphragm to the symphysis pubis without oral contrast, and without intravenous contrast. Sagittal and coronal images were reconstructed. Individualized dose optimization techniques were used for this CT. COMPARISON: 02/22/2019 CT abdomen pelvis. FINDINGS: Partially visualized lower chest: Lung bases unremarkable. Liver: Heterogenous hepatic steatosis with mild hepatomegaly. Gallbladder and biliary tree: Status post cholecystectomy. Mild common bile duct dilation similar to prior and likely incidental. Pancreas: No pancreatic lesions or inflammation. Spleen: Normal size, no splenic lesions. Adrenal glands: No concerning masses. Kidneys and ureters: No hydronephrosis or renal stones. No concerning masses. No ureteral dilation. Bowel: Appendix not identified. No evidence of appendicitis. No obstruction or inflammation of the bowel. Scattered sigmoid colon diverticula, no diverticulitis. Urinary bladder: No stones or wall thickening. Reproductive: Status post hysterectomy. Neither ovary identified. Normal vaginal cuff. Vascular: No abdominal aortic aneurysm. Mild atherosclerosis. Retroperitoneal and peritoneal spaces: No ascites or free air. No retroperitoneal lesions. Osseous: Posterior fusion and laminectomy L4-5 and L5-S1. Hardware intact. No acute osseous abnormality. Abdominal and pelvic wall: Implanted device left mid anterior abdominal wall with leads extending along the lesser curvature of the stomach. CT/Abdomen/Pelvis without Cont IMPRESSION: No acute findings. Hepatic steatosis with mild hepatomegaly. Status post cholecystectomy. Scattered colonic diverticula, no diverticulitis. Electronically Signed: Alejandro Bryson, at 22:22 EST Tel , Service support ,
[2019-09-14] MEDS: 0.9% Normal Saline 1,000 ML 999 ML IV (21:37)
[2019-09-14] MEDS: Ketorolac 30 MG/ML Syringe IV (21:37)
[2019-09-14] MEDS: HYDROmorphone 1 MG/ML Syringe IV ×2 (21:38→23:48)
[2019-09-14] MEDS: Ondansetron 4 MG/2 ML Vial IV (21:38)
--- NOTE | 2019-09-14 23:20 | ED.VISSUMM ---
- ER Visit Summary Date of Service: 09/14/19 Chief Complaint: Cannot urinate History of Present Illness: The patient is a 49 F who has 2 days of difficulty urinating. She feels the need to urinate, but only a small amount comes out. She saw her PCP and was noted to have gross blood in her urine and white blood cell count. She also complains of some left flank pain. She has a history of kidney stones and has required lithotripsy in the past. It feels similar. She also has a history of gastroparesis and a pacer for that. History of back and neck surgery. She is in pain management. Denies fever or systemic symptoms. She does have some nausea. Denies any other pains. Denies any other urinary symptoms. Physical Examination: Afebrile and vital signs unremarkable. Alert and oriented. Appears uncomfortable but not toxic or in distress. Heart regular. Lungs clear. Left flank and CVA tender to palpation. Skin appears unremarkable. Test Results: White count 12.3 and hemoglobin 15.6. Chemistry panel unremarkable. Urinalysis shows 25 leukocyte esterase, 250 blood, 5-10 RBCs. No sign of infection. CT shows diverticulosis without diverticulitis, hepatic steatosis and related changes, and postoperative changes. There is nothing acute. Emergency Department Course and Treatment: Patient received pain medicine and nausea medicine. Her work-up showed an elevated white count and mild blood in her urine. No sign of urinary pathology. Patient required additional pain and nausea medicine. I suspect that she may have passed a small stone. She is also concerned for this. There is no sign of obstruction or other urinary pathology on the scan. She has a small amount of blood and symptoms of a kidney stone. There is no sign of infection, sepsis, or other pathology to explain her symptoms. Patient was treated with additional pain medicine and nausea medicine here. She will be referred to urology for follow-up. If she has difficulty urinating or any new or worsening symptoms, she will return right away. She also will follow-up with her pain doctor tomorrow. She said that she cannot be given a prescription for narcotic medications based on her contract. Treatment Plan: As above Disposition: Discharge Impression: 1. Left flank pain This note was generated with [employer] dictation software. It may contain incorrect words, spelling, and punctuation that were not noted in review of the chart prior to signing ED Disposition - Plan for ED Patient: Referrals: Amandeep Loredo [Primary Care Provider] -
--- NOTE | 2019-09-14 23:35 | ED.DEP ---
ED Disposition - Plan for ED Patient: Instructions: FLANK PAIN, Uncertain Cause Prescriptions: proMETHazine tablet [Phenergan] 25 mg PO Q6H PRN PRN #10 tab PRN Reason: Nausea Prescription Printed Referrals: Luís Cardenas MD [STAFF PHYSICIAN] -
[2019-09-14] MEDS: proMETHazine 25 MG/ML Syringe 6.25 MG IV (23:47)
[2019-09-14 23:53] VITALS: BP 109/83; PULSE 93; RESP 20; O2SAT 96
== END 2019-09-15 00:02 | disposition home or self-care (01) ==
PROVIDERS: Emergency Provider Emergency Medicine; PCP Family Medicine
DX: R10.9 Unspecified abdominal pain (principal); K57.30 Diverticulosis of large intestine without perforation or abscess without bleeding; K76.0 Fatty (change of) liver, not elsewhere classified; K31.84 Gastroparesis; Z87.442 Personal history of urinary calculi; Z79.82 Long term (current) use of aspirin; Z86.73 Personal history of transient ischemic attack (TIA), and cerebral infarction without residual deficits
CPT/HCPCS: 74176; 80048; 81001; 85025; 96361; 96374; 96375; 96376; 99283; J7030; A4216; J2405

== ENCOUNTER 2019-09-25 19:49 | Emergency (ER) | payer MEDICARE, MEDICAID, SELFPAY ==
[2019-09-25 19:51] VITALS: BP 148/90; PULSE 109; RESP 18; TEMP 36.4; O2SAT 98; BMI 31.0
--- NOTE | 2019-09-25 20:39 | ED.VISSUMM ---
- ER Visit Summary Date of Service: 09/25/19 Chief Complaint: Rodriguez catheter not draining History of Present Illness: The patient is a 49 F presenting with Rodriguez cath not draining. She states this started today. She had very little output from her catheter since last night. She was admitted to [facility] last week and discharged on Thursday. She states she had kidney stones and urinary retention. She was sent home with a Rodriguez catheter. She is scheduled to see urology next week. She also complains of diarrhea and vomiting. She complains of left flank pain. Denies fever. Denies other complaints. Physical Examination: Vitals are stable. Patient is afebrile. Alert no acute distress. HEENT exam is unremarkable. Neck is supple. Lungs are clear and equal bilaterally. Heart is regular rate and rhythm. Abdomen is soft suprapubic tenderness Back: Left CVA tenderness Extremities are unremarkable. Skin is warm and dry. No focal neurologic deficit. Remainder of exam is unremarkable. Emergency Department Course and Treatment: Rodriguez catheter was replaced and drained 100 cc of urine, continues to drain clear yellow urine while in the ED. CBC, chemistries unremarkable. D-dimer negative. Urinalysis shows 0-5 white blood cells, 5-10 red blood cells. Urine culture was sent. CT abdomen pelvis shows moderate wall thickening and stranding around the cecum may represent an acute infectious or inflammatory process as clinically indicated. Stool studies were sent. On reevaluation she is feeling improved. She was given Cipro and Flagyl. Advised to follow-up with her primary care physician. Advised to return to ED for worsening complaints. Disposition: Discharge home Impression: Left flank pain, diarrhea, Rodriguez catheter replacement This note was generated with [employer] dictation software. It may contain incorrect words, spelling, and punctuation that were not noted in review of the chart prior to signing ED Disposition - Plan for ED Patient: Instructions: Treating Diarrhea, FLANK PAIN, Uncertain Cause, Rodriguez Catheter, Care Prescriptions: Ciprofloxacin [Cipro] 500 mg PO BID #14 tab Prescription Printed metroNIDAZOLE [Flagyl] 500 mg PO Q8H #21 tab Prescription Printed Ondansetron [Zofran Odt] 4 mg PO Q8H PRN PRN #10 tab PRN Reason: Nausea Prescription Printed Referrals: Ari Sotomayor [Primary Care Provider] -
[2019-09-25 21:08] LABS: Absolute Lymphocyte Count 2.96 X10^3/uL (0.83-4.51); Absolute Neutrophil Count 5.1 X10^3/uL (2.0-7.7); Basophil# 0.05 X10^3/uL; Basophil% 0.6 % (0-1); Eosinophil# 0.16 X10^3/uL; Eosinophils% 1.8 % (0-5); Hematocrit 49.5 % (37-47); Hemoglobin 16.1 g/dL (12.0-15.0); Lymphocyte # 2.96 X10^3/ul (4.0); Lymphocyte % 32.9 % (19-41); Mean Corp Hgb Conc 32.5 g/dL (32-36); Mean Corpuscular Hgb 31.4 pg (27.0-32.0); Mean Corpuscular Volume 96.5 fL (81-99); Mean Platelet Vol. 9.7 fl (6.2-12.0); Monocyte# 0.72 X10^3/uL; NRBC Flagged by Analyzer 0 % (0-5); Neutrophil # 5.07 X10^3/uL (2.7-7.7); Neutrophil % 56.4 % (47-70); Platelet Count 352 K/mm3 (150-450); RBC Distribution Width CV 12.9 % (11.6-14.6); RBC Distribution Width SD 45.6 fl (35.1-43.9); Red Blood Count 5.13 M/mm3 (4.2-5.4)
--- NOTE | 2019-09-25 21:08 | ED.RN ---
pt arrived with c/o catheter not draining. bladder scanned for approx 101 ml, then flushed with 60 ml of sterile water. Catheter then replaced with 18 silicone catheter and leg bag per pt request. not enough urine in bag for collection at this time.
[2019-09-25 21:21] LABS: D-Dimer Quantitative (DVT/PE) <= 0.27 FEU/ug/m (0.27-0.49)
--- NOTE | 2019-09-25 21:22 | CT_ITS ---
STUDY: CT ABDOMEN AND PELVIS WITHOUT CONTRAST REASON FOR EXAM: Female, 49 years old. LT FLANK PAIN/CATHETER NOT DRAINING APPROPRIATELY no renal stones or evidence for urinary tract obstruction. No renal stones or evidence for urinary tract obstruction. RADIATION DOSAGE (If Supplied By Facility): CTDIvol = ( 16.89 ) mGy, DLP = ( 776.29 ) mGycm TECHNIQUE: Transaxial images were obtained from the dome of the diaphragm to the symphysis pubis without oral contrast, and without intravenous contrast. Sagittal and coronal images were reconstructed. Individualized dose optimization techniques were used for this CT. COMPARISON: 09/14/19. FINDINGS: The visualized lung bases are unremarkable. The visualized portions of the heart are within normal limits. There is decreased attenuation of the liver consistent with steatosis. There are surgical clips in the gallbladder fossa consistent with a prior cholecystectomy. Normal spleen. Normal pancreas. Normal bilateral adrenal glands. Normal right kidney. Normal left kidney. Normal visualized stomach. Normal small intestine. There is moderate wall thickening and stranding around the cecum. There are multiple colonic diverticula consistent with diverticulosis. There is non-visualization of the appendix. Normal abdominal aorta. Normal inferior vena cava. Normal retroperitoneum. Rodriguez catheter is noted within a decompressed bladder. Normal abdominal wall. Lumbosacral hardware. Stimulator hardware is noted. CT/Abdomen/Pelvis without Cont IMPRESSION: Moderate wall thickening and stranding around the cecum may represent an acute infectious or inflammatory process as clinically indicated. Electronically Signed: Ceasar Doherty, at 22:00 EST Tel , Service support ,
[2019-09-25 21:24] LABS: Anion Gap 6 (5-15); BUN 15 mg/dL (7-18); BUN/Creat Ratio 17.5 RATIO (10-20); Calcium,Total 9.2 mg/dL (8.5-10.1); Chloride 107 mmol/L (98-107); Creatinine, Serum 0.86 mg/dL (0.55-1.02); EST Glomerular Filtration Rate 74 mL/min (>60); Est Glom Filt Rate - Afr Amer 90 mL/min (>60); Estimated Creatinine Clearance 81.79 ml/min; Glucose 94 mg/dL (74-106); Potassium 4.1 mmol/L (3.5-5.1); Sodium Level 140 mmol/L (136-145)
[2019-09-25 21:49] LABS: Mucous, Urine 0 SEEN /hpf (<or=2+)
[2019-09-25 21:51] LABS: Color, Urine Yellow (Yellow); Glucose, Dipstick Normal (Normal); Ketone-Dipstick Negative (Negative); Leukocyte Esterase-Dipstick 500 /ul (Negative); Nitrite-Dipstick Negative (Negative); Occult Blood-Urine 250 /ul (Negative); Protein-Dipstick 100 mg/dl (Negative); Urine Bilirubin Dipstick Negative (Negative); Urine Clarity Sl. Cloudy (Clear); Urine Urobilinogen 1 mg/dl (Normal)
[2019-09-25 22:00] LABS: Red Blood Cells-Urine 5-10 SEEN /hpf (0-5)
[2019-09-25 22:02] LABS: Bacteria 1+ /hpf (None Seen); Squamous Epithelial Cells - UA 0-5 SEEN /hpf (5-10); White Blood Cells 0-5 SEEN /hpf (0-5)
[2019-09-25] MEDS: Ondansetron 4 MG/2 ML Vial IV (22:28)
[2019-09-25] MEDS: Morphine 4 MG/ML Syringe IV (22:28)
[2019-09-25 22:30] VITALS: BP 120/82; PULSE 88; RESP 16; O2SAT 94
--- NOTE | 2019-09-25 22:55 | ED.DEP ---
ED Disposition - Plan for ED Patient: Instructions: Treating Diarrhea, FLANK PAIN, Uncertain Cause, Rodriguez Catheter, Care Prescriptions: Ciprofloxacin [Cipro] 500 mg PO BID #14 tablet metroNIDAZOLE [Flagyl] 500 mg PO Q8H #21 tablet Ondansetron [Zofran Odt] 4 mg PO Q8H PRN PRN #10 tablet PRN Reason: Nausea Referrals: Ari Sotomayor [Primary Care Provider] -
[2019-09-25] MEDS: metroNIDAZOLE 500 MG Tablet PO (23:13)
[2019-09-25] MEDS: Ciprofloxacin 500 MG Tablet PO (23:14)
--- NOTE | 2019-09-25 23:20 | ED.DEP ---
ED Disposition - Plan for ED Patient: Instructions: Treating Diarrhea, FLANK PAIN, Uncertain Cause, Rodriguez Catheter, Care Prescriptions: Ciprofloxacin [Cipro] 500 mg PO BID #14 tab Prescription Printed metroNIDAZOLE [Flagyl] 500 mg PO Q8H #21 tab Prescription Printed Oxycodone HCl/Acetaminophen [Percocet 5/325] 1 tablet PO Q6H PRN PRN 3 Days #12 tablet PRN Reason: Pain Ondansetron [Zofran Odt] 4 mg PO Q8H PRN PRN #10 tab PRN Reason: Nausea Prescription Printed Referrals: Ari Sotomayor [Primary Care Provider] -
== END 2019-09-25 23:28 | disposition home or self-care (01) ==
PROVIDERS: Emergency Provider Emergency Medicine; PCP Family Medicine
DX: T83.098A Other mechanical complication of other urinary catheter, initial encounter (principal); R10.9 Unspecified abdominal pain; R19.7 Diarrhea, unspecified; G40.909 Epilepsy, unspecified, not intractable, without status epilepticus; Z87.442 Personal history of urinary calculi; Z86.73 Personal history of transient ischemic attack (TIA), and cerebral infarction without residual deficits
CPT/HCPCS: 51702; 74176; 80048; 81001; 85025; 85379; 87077; 87086; 87088; 87506; 96374; 96375; 99285; A4216; J2405

== ENCOUNTER 2019-11-10 21:01 | Emergency (ER) | payer MEDICARE, MEDICAID, SELFPAY ==
[2019-11-10 21:02] VITALS: BP 139/80; PULSE 100; RESP 18; TEMP 36.6; O2SAT 94; BMI 30.4
--- NOTE | 2019-11-10 21:22 | ED.DCSUM_ITS ---
- ER Visit Summary Date of Service: 11/10/19 Chief Complaint: Back pain History of Present Illness: The patient is a 49 F who presents with back pain that is been getting worse over the past 4 days. Patient states she has been doing more cleaning at home and more bending which likely caused her back pain t o get worse. Patient describes her pain is sharp. Patient states pain is over the lower lumbar area and radiates to her posterior thighs bilaterally. Patient states her pain is worse with ambulation. Patient states nothing seems to help with her pain. Patient admits to some tingling in her thighs but denies any numbness or weakness. Patient denies any bowel or bladder changes. Patient denies any saddle anesthesia. Physical Examination: Vital signs are stable. Patient is afebrile. Patient is in no acute distress. Musculoskeletal exam reveals tenderness and mild spasm of the lumbar paraspinal muscles. There is no midline tenderness. There is no bony crepitance or step-off. Range of motion was limited in all motion secondary to pain. Strength is 5/5 bilateral knee upper and lower extremities. There are no sensory deficits noted. Posterior tibial pulses are equal bilaterally. There is no calf tenderness or edema. Emergency Department Course and Treatment: Patient was given an injection of morphine here. Patient was advised that we would not be able to prescribe any pain medications for at home. Patient was instructed to follow-up with her primary care physician as scheduled. Patient understands and is agreeable with the plan. All questions were answered. Disposition: Discharge home Impression: Acute on chronic low back pain This note was generated with [employer] dictation software. It may contain incorrect words, spelling, and punctuation that were not noted in review of the chart prior to signing ED Disposition - Plan for ED Patient: Disposition: Home or Assisted Living Diagnosis: Acute exacerbation of chronic low back pain Instructions: BACK PAIN w/ SCIATICA Referrals: Ari Sotomayor [Primary Care Provider] - Keep Alisia appointment
[2019-11-10] MEDS: Morphine 4 MG/ML Syringe IM (21:23)
[2019-11-10 21:49] VITALS: BP 125/87; PULSE 99; RESP 14; O2SAT 98
== END 2019-11-10 21:50 | disposition home or self-care (01) ==
LOC: ED 21:33
PROVIDERS: Emergency Provider Emergency Medicine; PCP Family Medicine
DX: M54.5 Low back pain (principal); G89.29 Other chronic pain; G40.909 Epilepsy, unspecified, not intractable, without status epilepticus; Z72.0 Tobacco use
CPT/HCPCS: 96372; 99283

== ENCOUNTER 2019-11-13 14:39 | Emergency (ER) | payer MEDICARE, MEDICAID, SELFPAY ==
[2019-11-13 14:40] VITALS: BP 149/100; PULSE 106; RESP 25; TEMP 36.7; O2SAT 95; BMI 32.8
[2019-11-13 15:32] LABS: Absolute Lymphocyte Count 2.01 X10^3/uL (0.83-4.51); Absolute Neutrophil Count 3.8 X10^3/uL (2.0-7.7); Basophil# 0.03 X10^3/uL; Basophil% 0.5 % (0-1); Eosinophil# 0.07 X10^3/uL; Eosinophils% 1.1 % (0-5); Hematocrit 43.5 % (37-47); Hemoglobin 14.6 g/dL (12.0-15.0); Lymphocyte # 2.01 X10^3/ul (4.0); Lymphocyte % 30.9 % (19-41); Mean Corp Hgb Conc 33.6 g/dL (32-36); Mean Corpuscular Hgb 32.4 pg (27.0-32.0); Mean Corpuscular Volume 96.5 fL (81-99); Mean Platelet Vol. 9.9 fl (6.2-12.0); Monocyte# 0.59 X10^3/uL; Monocyte% 9.1 % (0-10); NRBC Flagged by Analyzer 0 % (0-5); Neutrophil % 58.2 % (47-70); Platelet Count 272 K/mm3 (150-450); RBC Distribution Width CV 13.2 % (11.6-14.6); RBC Distribution Width SD 46.5 fl (35.1-43.9); Red Blood Count 4.51 M/mm3 (4.2-5.4); White Blood Count 6.5 K/mm3 (4.4-11.0)
[2019-11-13] MEDS: Ondansetron 4 MG/2 ML Vial IV (15:35)
[2019-11-13 15:44] LABS: Anion Gap 7 (5-15); BUN 16 mg/dL (7-18); BUN/Creat Ratio 18.5 RATIO (10-20); Calcium,Total 8.5 mg/dL (8.5-10.1); Chloride 109 mmol/L (98-107); Creatinine, Serum 0.86 mg/dL (0.55-1.02); EST Glomerular Filtration Rate 74 mL/min (>60); Est Glom Filt Rate - Afr Amer 89 mL/min (>60); Estimated Creatinine Clearance 81.79 ml/min; Glucose 104 mg/dL (74-106); Potassium 5.9 mmol/L (3.5-5.1); Sodium Level 140 mmol/L (136-145)
[2019-11-13 16:39] VITALS: BP 119/81; PULSE 84; RESP 18; O2SAT 93
[2019-11-13] MEDS: Morphine 4 MG/ML Syringe IV (16:55)
[2019-11-13 17:35] LABS: Potassium 3.9 mmol/L (3.5-5.1)
--- NOTE | 2019-11-13 17:57 | ED.DCSUM_ITS ---
- ER Visit Summary Date of Service: 11/13/19 Chief Complaint: Seizure History of Present Illness: The patient is a 49 F with a history of seizures. She takes Keppra 1250 mg twice a day. She has been compliant. She had a seizure couple weeks ago and her Keppra was increased from 1 g twice a day. She had 4 shaking episodes that were witnessed by her family today after being exposed to flashing light. She did have urine incontinence and she complains of myalgias. No other complaints today. Physical Examination: Afebrile and vital signs unremarkable except for heart rate of 106 and respiratory rate of 25. Patient is in no acute distress. Good mental status, alert and fully oriented. Cranial nerves grossly intact. Good strength and sensation. Normal gait/ambulation. Heart slightly tachycardic but regular. Lungs clear. Abdomen soft. Skin appears normal. Test Results: CBC unremarkable. Metabolic panel unremarkable. Emergency Department Course and Treatment: Patient had seizure precautions and cardiac monitoring. She had no further seizure activity. Her mental status was normal. Labs were unremarkable. She was treated for pain and nausea. She was observed in the ED for several hours and had no further seizure activity. After discussion with her, she would like to go home. We will increase her Keppra to 1500 mg twice a day. She should call her neurologist tomorrow for follow-up. Return for any new or worsening issues. Continue seizure precautions. Treatment Plan: As above Disposition: Discharge Impression: Seizure This note was generated with [employer] dictation software. It may contain incorrect words, spelling, and punctuation that were not noted in review of the chart prior to signing ED Disposition - Plan for ED Patient: Referrals: Ari Sotomayor [Primary Care Provider] -
--- NOTE | 2019-11-13 17:59 | ED.DEP ---
ED Disposition - Plan for ED Patient: Instructions: SEIZURE, Recurrent [Adult] Prescriptions: Levetiracetam [Keppra] 1,500 mg PO BID #120 tab Prescription Printed Referrals: Ari Sotomayor [Primary Care Provider] -
[2019-11-13 18:00] VITALS: BP 110/52; PULSE 81; RESP 18; O2SAT 98
[2019-11-13 18:09] VITALS: BP 110/52; PULSE 82; RESP 18; O2SAT 96
[2019-11-13] MEDS: cycloBENZAPRine HCl 10 MG Tablet PO (18:23)
[2019-11-13] MEDS: levETIRAcetam 500 MG Tablet PO (18:32)
== END 2019-11-13 18:48 | disposition home or self-care (01) ==
PROVIDERS: Emergency Provider Emergency Medicine; PCP Family Medicine
DX: G40.909 Epilepsy, unspecified, not intractable, without status epilepticus (principal); R32 Unspecified urinary incontinence; Z79.899 Other long term (current) drug therapy; Z72.0 Tobacco use
CPT/HCPCS: 80048; 84132; 85025; 96361; 96374; 96375; 99285; J7040; A4216; J2405

== ENCOUNTER 2019-12-04 20:00 | Emergency (ER) | payer MEDICARE, MEDICAID, SELFPAY ==
[2019-12-04 20:01] VITALS: BP 152/114; PULSE 100; PULSE 94; RESP 17; RESP 18; TEMP 36.5; O2SAT 96; BMI 32.7
--- NOTE | 2019-12-04 20:14 | RAD_ITS ---
STUDY: X-RAY - RIGHT HAND REASON FOR EXAM: Female, 49 years old. patient had a seizure/fall, right hand pain TECHNIQUE: 3 view(s) of the hand. COMPARISON: None. FINDINGS: Normal radiocarpal articulation. Normal distal radioulnar joint. Normal visualized carpal bones. Normal carpal articulations Normal carpometacarpal articulation of the thumb. Normal second through fifth carpometacarpal joints. Normal metacarpi. Normal metacarpophalangeal joint of the thumb. Normal interphalangeal joint of the thumb. Normal proximal and distal phalanges of the thumb. Normal metacarpophalangeal joints of the second through fifth fingers. Normal proximal and distal interphalangeal joints of the second through fifth fingers. Normal phalanges of the second through fifth fingers. The soft tissue structures are unremarkable. RAD/Hand Min 3 Views IMPRESSION: Normal x-ray examination of the hand. Electronically Signed: Alejandro Fernandez MD at 21:10 EDT , Service support ,
--- NOTE | 2019-12-04 20:16 | ED.VISSUMM ---
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 Since then she has had seizure disorder. She is also had prior multiple surgeries. States today she had a seizure while cooking. When she started to fall her significant other caught her head but she did strike her hand and right forearm on the ground. Complaining of pain. Denies other injuries. Denies any headache. Physical Examination: Middle-aged female no acute distress vital signs stable afebrile. H EENT exam unremarkable atraumatic. Pupils round reactive light. No signs of trauma to her face or scalp. Nontender. C-spine nontender. Trachea midline. Lungs clear to auscultation bilaterally. Heart regular rhythm rate about 100 no murmur. Chest were nontender. Abdomen soft nontender. Pelvic girdle intact. Left upper and both lower extremities are nontender. Normal range of motion. No deformity. No signs of trauma. Her right forearm, wrist and hand are tender. There is mild bruising to the wrist and radial side of the hand. No gross bony deformities. Tender to touch. Hands neurovascular intact. Her right shoulder is nontender. Back nontender. Neurologically she is awake and alert Test Results: Right forearm x-ray 2 views read by myself no acute fracture. No dislocation. Right hand x-ray 3 views read by myself no acute fracture or dislocation. Emergency Department Course and Treatment: Patient has frequent seizures. Recently had her seizure medication increased. Basic had a seizure today fell struck her forearm and hand. X-rays are being obtained. She is being given oxycodone for pain. Repeat exam doing well at 2050 p.m. Treatment Plan: Ice to her forearm wrist and hand. Tylenol and Motrin for pain. Follow-up if not improving. Disposition: discharge Impression: Acute seizure with history of seizure disorder Fall Acute right forearm and hand contusions. This note was generated with [employer] dictation software. It may contain incorrect words, spelling, and punctuation that were not noted in review of the chart prior to signing ED Disposition - Plan for ED Patient: Referrals: Ari Sotomayor [Primary Care Provider] -
[2019-12-04] MEDS: oxyCODONE 5 MG Tablet 10 MG PO (20:29)
--- NOTE | 2019-12-04 20:40 | RAD_ITS ---
STUDY: X-RAY - RIGHT RADIUS AND ULNA REASON FOR EXAM: Female, 49 years old. patient had a seizure/fall, right arm pain TECHNIQUE: 2 view(s) of the forearm. COMPARISON: None. FINDINGS: There is no demonstrated soft tissue swelling. Normal visualized radius. Normal visualized ulna. RAD/Forearm 2 Views IMPRESSION: Normal x-ray examination of the radius and ulna. Electronically Signed: Alejandro Fernandez MD at 21:07 EDT , Service support ,
--- NOTE | 2019-12-04 20:51 | ED.DEP ---
ED Disposition - Plan for ED Patient: Disposition: Home or Assisted Living Instructions: ED EXTREMITY CONTUSION Upper Referrals: Ari Sotomayor [Primary Care Provider] - 1 Week if not improving Additional Instructions: Elevate your hand, wrist and forearm. Your x-rays tonight did not show any broken bones nor any dislocations. It appears to be badly bruised. Tylenol and Motrin for pain and swelling. Follow-up with your doctor if not improving.
== END 2019-12-04 21:47 | disposition home or self-care (01) ==
LOC: ED 20:58
PROVIDERS: Emergency Provider Emergency Medicine; PCP Family Medicine
DX: G40.909 Epilepsy, unspecified, not intractable, without status epilepticus (principal); S50.11XA Contusion of right forearm, initial encounter; S60.221A Contusion of right hand, initial encounter; X58.XXXA Exposure to other specified factors, initial encounter; Y93.G3 Activity, cooking and baking; Y92.9 Unspecified place or not applicable; Z86.73 Personal history of transient ischemic attack (TIA), and cerebral infarction without residual deficits
CPT/HCPCS: 73090; 73130; 99283

== ENCOUNTER 2019-12-28 12:56 | Emergency (ER) | payer MEDICARE, MEDICAID, SELFPAY ==
[2019-12-28 12:58] VITALS: BP 139/101; PULSE 103; RESP 17; TEMP 36.4; O2SAT 94; BMI 31.0
--- NOTE | 2019-12-28 13:31 | RAD_ITS ---
STUDY: X-RAY - THORACIC SPINE REASON FOR EXAM: Female, 49 years old. Pt states pacemaker in stomach -- lower back surgery 2 years ago, cervical fusion -- pt''s [id number] fell on her today -- left leg pain, back pain TECHNIQUE: 3 view(s) of the thoracic spine were obtained. COMPARISON: None. FINDINGS: There is straightening of the normal thoracic kyphosis. Minimal dextroscoliosis. Normal thoracic vertebrae and endplates. Normal disc space heights. Prior fusion in the lower cervical spine. The soft tissue structures are unremarkable. RAD/Thoracic Spine 3 Views IMPRESSION: Minimal dextroscoliosis with the decreased kyphosis of the thoracic spine. Electronically Signed: Luiz Neff, at 14:21 EDT , Service support ,
[2019-12-28] MEDS: Ketorolac 60 MG/2 ML Vial IM (13:51)
[2019-12-28] MEDS: fentaNYL 100 MCG/2 ML Ampul 50 MCG IM (13:51)
--- NOTE | 2019-12-28 14:30 | ED.VISSUMM ---
- ER Visit Summary Date of Service: 12/28/19 Chief Complaint: Back pain History of Present Illness: The patient is a 49 F her [id number] fell on her back today and that she was trapped under her for approximately 30 minutes. She reports that since that time she is had a stabbing mid back pain is 10-10 severity. Is worsened by movement. Is relieved by nothing. She is not taking anything for pain. She denies any numbness or weakness. No problems with her bowels or bladder. No groin numbness. She does report that she had problems with her back in the past. Physical Examination: Vitals: Stable. Afebrile. General: A&O x 3. NAD. Cardiovascular exam: Regular rate and rhythm, no murmur, rub or gallop. Respiratory exam: Clear to auscultation bilaterally. No wheezes or stridor. Abdominal exam: Soft, nontender, nondistended, normal bowel sounds. No peritoneal signs. Back: Diffuse severe tenderness to palpation over the thoracic spine and the paraspinous musculature in the lumbar region. No point tenderness. Negative straight leg bilaterally. 5/5 DF, PF, EHL bilaterally. Normal sensation to light touch throughout. Extremity: No clubbing, cyanosis, or edema. Test Results: Clinical Impression(s) from Imaging Studies Thoracic Spine X-Ray 12/28/19 13:31 IMPRESSION: Minimal dextroscoliosis with the decreased kyphosis of the thoracic spine. Electronically Signed: Luiz Evonsarakeanu, at 14:21 EDT , Service support , Emergency Department Course and Treatment: Patient was given a dose of fentanyl and Toradol IM. She is resting more comfortably. Treatment Plan: I had a prolonged discussion with the patient.symptomatic care. Instructed to use warm compresses. Use Tylenol and/or ibuprofen for pain. [place] her primary care physician 1 week if not improving. Return to the emergency department for any worsening symptoms. Disposition: To home in improved and stable condition. Impression: 1. Thoracic back pain. This note was generated with [employer] software. It may contain incorrect words, spelling, and punctuation that were not noted in review of the chart prior to signing ED Disposition - Plan for ED Patient: Disposition: Home or Assisted Living Instructions: ED Back Pain Acute or Chronic Referrals: Ari Sotomayor [Primary Care Provider] - 1 Week if not improving Mandy Robledo MD [STAFF PHYSICIAN] -
== END 2019-12-28 15:20 | disposition home or self-care (01) ==
LOC: ED 14:20
PROVIDERS: Emergency Provider Emergency Medicine; PCP Family Medicine
DX: M54.6 Pain in thoracic spine (principal); G40.909 Epilepsy, unspecified, not intractable, without status epilepticus
CPT/HCPCS: 72072; 96372; 99282

== ENCOUNTER 2020-01-02 20:00 | Emergency (ER) | payer MEDICARE, MEDICAID, SELFPAY ==
[2020-01-02 20:01] VITALS: BP 141/72; PULSE 94; RESP 18; TEMP 36.1; O2SAT 95; BMI 31.0
--- NOTE | 2020-01-02 21:57 | CT_ITS ---
HISTORY: BACK PAIN POST EPIDURALINJECTION ON ,LEG WEAKNESSHX:CHRONIC BACK PAIN WITH SURGERIES EXAMINATION: CT Spine Thoracic W/ Contrast Injection TECHNIQUE: Helically acquired images were obtained of the thoracic spine. 2D reformats were reviewed. A radiation dose optimization technique was used for this scan. IV Contrast dosage and agent: IV 100mL [id number]-300 COMPARISON: 06/01/2019 FINDINGS: No significant change. Minor thoracic dextroscoliosis. Thoracic vertebra are normal in height. No fracture or acute osseous abnormality. Chronic appearing small Schmorl's nodes of the T10 and T11 inferior endplate through right of midline. No suspicious bony lesion. Prior C6-7 anterior surgical fusion. The paravertebral soft tissues are unremarkable. No abscess or suspicious fluid collections. No posterior disc protrusion, foraminal, or spinal stenosis seen. CT/Spine Thoracic WITH Contrast IMPRESSION: 1. Stable exam. No fracture or acute osseous abnormality. 2. No spinal stenosis identified. 3. No abscess or inflammatory change seen. Individualized dose optimization techniques were used for this CT. at 0011 Reported and signed by: Tyler Schneider MD Electronically Signed: Tyler Schneider, at 0:10 EDT Tel , Service support ,
--- NOTE | 2020-01-02 21:57 | CT_ITS ---
HISTORY: BACK PAIN post epidural injection on ,leg weaknesshx:chronic back pain with surgeries EXAMINATION: CT Spine Lumbar W/ Contrast Injection TECHNIQUE: Helically acquired images were obtained of the lumbar spine. 2D reformats were reviewed. A radiation dose optimization technique was used for this scan. IV Contrast dosage and agent: IV 100mL [id number]-300 COMPARISON: CT lumbar spine 06/01/2019 FINDINGS: The lumbar vertebra show normal height and alignment. No fracture or acute osseous abnormality. Status post L4 and L5 decompression laminectomy with L4-5-S1 posterior fusion utilizing pedicle screws and connecting rods. The surgical hardware appears intact and stable. L3-4 degenerative disc disease with vacuum disc phenomenon and disc degeneration shows progression compared to the 2019 exam. This dissipates lies above the surgical fusion. No epidural abscess or suspicious fluid collections identified. T12-L1 through L2-3: The disc space heights are preserved. No posterior disc protrusion, foraminal, or spinal stenosis. L3-4: Degenerative disc disease with mild disc space narrowing, circumferential disc bulging, and degenerative vacuum disc phenomenon. No suspicious central canal or foraminal narrowing. L4-5: Posterior decompression laminectomy and surgical fusion. Mild disc space narrowing. No suspicious central canal or foraminal narrowing. L5 disc S1: Posterior decompression laminectomy and surgical fusion. The disc space height is preserved. No central canal or foraminal narrowing identified. CT/Spine Lumbar WITH Contrast IMPRESSION: 1. No fracture or acute osseous abnormality. Normal lumbar vertebral alignment. 2. L4-L5-S1 decompression laminectomy with surgical fusion. No complication seen. 3. L3-4 degenerative disc disease and disc bulging. Degenerative change at this level above the surgical fusion shows mild progression compared to the 2019 exam. 4. No abscess or suspicious fluid collections identified. Individualized dose optimization techniques were used for this CT. at 0002 Reported and signed by: Tyler Schneider MD Electronically Signed: Tyler Schneider, at 0:01 EDT Tel , Service support ,
[2020-01-02] MEDS: LORazepam 2 MG/ML Syringe 0.5 MG IV (22:21)
[2020-01-02] MEDS: Ondansetron 4 MG/2 ML Vial IV (22:21)
[2020-01-02] MEDS: morphine 8 MG/ML Syringe IV (22:21)
[2020-01-02] MEDS: 0.9% Normal Saline 1,000 ML 999 ML IV (22:22)
[2020-01-02 22:29] LABS: Absolute Lymphocyte Count 3.48 X10^3/uL (0.83-4.51); Absolute Neutrophil Count 6.9 X10^3/uL (2.0-7.7); Basophil# 0.04 X10^3/uL; Basophil% 0.4 % (0-1); Eosinophil# 0.07 X10^3/uL; Eosinophils% 0.6 % (0-5); Hematocrit 47.3 % (37-47); Hemoglobin 15.6 g/dL (12.0-15.0); Lymphocyte # 3.48 X10^3/ul (4.0); Lymphocyte % 30.7 % (19-41); Mean Corpuscular Hgb 32.3 pg (27.0-32.0); Mean Corpuscular Volume 97.9 fL (81-99); Mean Platelet Vol. 9.9 fl (6.2-12.0); NRBC Flagged by Analyzer 0 % (0-5); Neutrophil # 6.91 X10^3/uL (2.7-7.7); Neutrophil % 60.9 % (47-70); Platelet Count 313 K/mm3 (150-450); RBC Distribution Width CV 13.4 % (11.6-14.6); Red Blood Count 4.83 M/mm3 (4.2-5.4); White Blood Count 11.4 K/mm3 (4.4-11.0)
[2020-01-02 22:37] LABS: Anion Gap 6 (5-15); BUN 20 mg/dL (7-18); BUN/Creat Ratio 24.2 RATIO (10-20); Calcium,Total 9.3 mg/dL (8.5-10.1); Chloride 107 mmol/L (98-107); Creatinine, Serum 0.83 mg/dL (0.55-1.02); EST Glomerular Filtration Rate 77 mL/min (>60); Est Glom Filt Rate - Afr Amer 94 mL/min (>60); Estimated Creatinine Clearance 84.74 ml/min; Glucose 99 mg/dL (74-106); Sodium Level 143 mmol/L (136-145)
[2020-01-02 22:52] LABS: International Normalized Ratio 0.9; Prothrombin Time (Protime)PT. 11.6 SECONDS (11.7-14.9)
[2020-01-02 23:13] LABS: CPK Total, Creatine Kinase 159 U/L (26-192)
--- NOTE | 2020-01-02 23:22 | ED.VIS.INJ ---
History of Present Illness Chief Complaint: Back Informant: Patient Onset: Yesterday Quality of Pain: - - Cramping Associated Symptoms: Parasthesias, Weakness, Inability to ambulate Narrative: Patient is a 49-year-old female with extensive medical history including cauda equina syndrome, gastroparesis, fibromyalgia, Seizure disorder, C. difficile colitis, proximal atrial fibrillation, migraine disorder and brain aneurysm status post coiling presenting with low back pain, leg pain and leg weakness. Patient states she had an epidural injection by her pain doctor, Dr. Robledo, on December 27, 5 days ago. She states yesterday she started having worsening pain in her lower back. She has a cramping sensation in her legs, buttocks and numbness in her groin area. She states she feels that she needs to pee but whenever she tries nothing comes out. She states she has been able to urinate for the past 5 hours or so. She also feels her legs are very weak and she cannot stand on them or hold her weight. She does note she has significant pain when she tries to stand on them as well. She not take anything for the pain. She is not on any oral anticoagulation. Patient states she did fall just prior to arrival when she was trying into her car. She did not hit her head. Past Medical History - Allergies and Home Meds Allergies/Adverse Reactions: Allergies Penicillins Allergy (Verified 01/02/20 20:05) Anaphylaxis propoxyphene napsylate [From Darvocet-N 100] Allergy (Verified 01/02/20 20:05) Rash hydrocodone bitartrate [From Vicodin] Adverse Reaction (Verified 01/02/20 20:05) Itching venom-honey bee [bee venom (honey bee)] Adverse Reaction (Verified 01/02/20 20:05) Chest tightness PLASTIC TAPE Allergy (Uncoded 01/02/20 20:05) blistering IV contrast Adverse Reaction (Uncoded 01/02/20 20:05) Vomiting Primary Care Physician: Ari Sotomayor [Primary Care Provider] - Past Medical History: - - cauda equina syndrome, gastroparesis, fibromyalgia, Seizure disorder, C. difficile colitis, proximal atrial fibrillation, migraine disorder and brain aneurysm status post coiling Surgical History: appendectomy, cholecystectomy, hysterectomy, - - Lumbar spine surgery, multiple abdominal surgeries, including for kidney tumor, hysterectomy, cholecystectomy, endometriosis, brain aneursyms clamped and coiled, gastric pacemaker placement. Lives: With Family Smoking Status: Never smoker - Family History Maternal Family History: Reports: Diabetes Paternal Family History: Reports: Heart Disease Review of Systems General: Denies: Chills, Fever, Sweats Eyes: Denies: Visual changes - bilaterally, Diplopia ENT: Denies: Rhinorrhea, Sore throat Cardiovascular: Denies: Chest pain, Palpitations Respiratory: Denies: Dyspnea, Cough, Dyspnea on exertion Gastrointestinal: Denies: Abdominal pain, Nausea, Vomiting, Diarrhea, Melena, Hematochezia Genitourinary: Reports: - - Inability to urinate. Denies: Dysuria, Hematuria, Frequency Musculoskeletal: Reports: Back pain, Extremity Pain - Cramps Skin: Denies: Rash, Wounds Neurological: Reports: Parasthesia - Saddle/groin area. Denies: Headache, Weakness, Numbness Physical Exam Vital Signs/Narrative: Vital Signs Temp Pulse Resp BP Pulse Ox 01/02/20 20:01 97 F L 94 18 141/72 H 95 Inital Vital Signs reviewed: Yes General: Well nourished, Well developed Head: Normocephalic, Atraumatic Eyes: Perrl, EOMI ENT: No trauma. Negative for: Otorrhea Neck: Nontender, Full ROM Cardiovascular: Regular rate, Regular rhythm, No murmurs Respiratory: No distress, CTA bilaterally, Chest nontender Abdomen: Soft, Nontender, Nondistended, Normal bowel sounds Rectal: Nontender, - - Diminished sensation during rectal exam, rectal tone intact but does feel weakened. Back: Spinal Tenderness - Diffusely thoracic and lumbar region. Negative for: CVA Tenderness - Right, CVA Tenderness - Left, Paraspinal Tenderness Extremeties: Pressure readings are normal. Lower extremities?decreased strength with plantar and dorsiflexion. Spasms of the bilateral calf muscles appreciated. No obvious deformity Skin: Normal color, No rash Neurological: Alert, Oriented x3, Cranial nerves II-XII grossly intact Psychological: Normal affect, Tearful, - - Anxious Diagnostic/Tx/Re-eval Clinical Impression(s) from Imaging Studies Lumbar Spine CT 01/02/20 21:57 IMPRESSION: 1. No fracture or acute osseous abnormality. Normal lumbar vertebral alignment. 2. L4-L5-S1 decompression laminectomy with surgical fusion. No complication seen. 3. L3-4 degenerative disc disease and disc bulging. Degenerative change at this level above the surgical fusion shows mild progression compared to the 2019 exam. 4. No abscess or suspicious fluid collections identified. Individualized dose optimization techniques were used for this CT. at 0002 Reported and signed by: Tyler Schneider MD Electronically Signed: Tyler Schneider at 0:01 EDT Tel , Service support , Thoracic Spine CT 01/02/20 21:57 IMPRESSION: 1. Stable exam. No fracture or acute osseous abnormality. 2. No spinal stenosis identified. 3. No abscess or inflammatory change seen. Individualized dose optimization techniques were used for this CT. at 0011 Reported and signed by: Tyler Schneider MD Electronically Signed: Tyler Schneider at 0:10 EDT Tel , Service support , Laboratory Data 01/02/20 01/02/20 01/02/20 22:15 22:15 22:15 WBC 11.4 H RBC 4.83 Hgb 15.6 H Hct 47.3 H MCV 97.9 MCH 32.3 H MCHC 33.0 RDW Std Deviation 48.0 H RDW Coeff of Bere 13.4 Plt Count 313 MPV 9.9 Immature Gran % (Auto) 0.400 Neut % (Auto) 60.9 Lymph % (Auto) 30.7 Custer % (Auto) 7.0 Eos % (Auto) 0.6 Baso % (Auto) 0.4 Absolute Neuts (auto) 6.9 Absolute Lymphs (auto) 3.48 Nucleated RBC % 0 PT 11.6 L INR 0.9 APTT 26.0 Sodium 143 Potassium 4.0 Chloride 107 Carbon Dioxide 30.0 Anion Gap 6 BUN 20 H Creatinine 0.83 Estim Creat Clear Calc 84.74 Est GFR (MDRD) Af Amer 94 Est GFR (MDRD) Non-Af 77 BUN/Creatinine Ratio 24.2 H Glucose 99 Calcium 9.3 Total Creatine Kinase 01/02/20 22:15 WBC RBC Hgb Hct MCV MCH MCHC RDW Std Deviation RDW Coeff of Bere Plt Count MPV Immature Gran % (Auto) Neut % (Auto) Lymph % (Auto) Custer % (Auto) Eos % (Auto) Baso % (Auto) Absolute Neuts (auto) Absolute Lymphs (auto) Nucleated RBC % PT INR APTT Sodium Potassium Chloride Carbon Dioxide Anion Gap BUN Creatinine Estim Creat Clear Calc Est GFR (MDRD) Af Amer Est GFR (MDRD) Non-Af BUN/Creatinine Ratio Glucose Calcium Total Creatine Kinase 159 - Medical Decision Making Patient is a 49-year-old female with history of cauda equina syndrome with decompression at [facility] presenting with lower extremity pain and new neurologic symptoms. Patient is 5 days status post epidural injection from pain management. She states she has had increasing pain in her lower back and last night developed severe cramping of her lower extremities. In addition she has develop saddle anesthesia and urinary retention today. Patient cannot have an MRI secondary to a gastric pacemaker. She is initially treated with 0.5 mg of Ativan and 8 mg of morphine. 420 cc of urine in her bladder. Patient tends to urinate and can only get 10 cc out. A Rodriguez catheter is placed and patient ultimately had 800 cc of urine out. CT with IV contrast of the thoracic and lumbar spine obtained which does not show any acute fluid collections or any other acute abnormality. However, given her clinical presentation and new neurologic deficits I still have a high suspicion for an acute spinal cord process. Patient would like to be transferred to [facility] for further evaluation. I discussed with neurosurgery, Dr. Fuentes, who is agreeable with admission but would like her to go to the medicine service for CT myelogram. Case is discussed with admitting physician, Dr. Ribera, who is agreeable with plan. Patient does require re-dose with another 0.5 of Ativan and 1 mg of Dilaudid. She is agreeable this plan. She is hemodynamically stable in the emergency room. ED Disposition - Plan for ED Patient: Disposition: [facility] Diagnosis: Muscle spasm of both lower legs, Acute urinary retention, Saddle anesthesia, Acute exacerbation of chronic low back pain Referrals: Ari Sotomayor [Primary Care Provider] -
[2020-01-03] VITALS: RESP 18
[2020-01-03] MEDS: HYDROmorphone 1 MG/ML Syringe IV (00:29)
[2020-01-03] MEDS: LORazepam 2 MG/ML Syringe 0.5 MG IV (00:29)
[2020-01-03 00:32] VITALS: BP 134/73; PULSE 77; RESP 17; O2SAT 98
--- NOTE | 2020-01-03 01:11 | ED.RN ---
[facility] called for transport eta 45 mins
[2020-01-03 02:15] VITALS: BP 134/73; PULSE 76; RESP 16; O2SAT 98
== END 2020-01-03 02:16 | disposition short-term general hospital (02) ==
PROVIDERS: Emergency Provider Emergency Medicine; PCP Family Medicine
DX: M62.831 Muscle spasm of calf (principal); M51.36 Other intervertebral disc degeneration, lumbar region; M51.26 Other intervertebral disc displacement, lumbar region; M79.7 Fibromyalgia; R33.9 Retention of urine, unspecified; G83.4 Cauda equina syndrome; G89.29 Other chronic pain; G40.909 Epilepsy, unspecified, not intractable, without status epilepticus; G43.909 Migraine, unspecified, not intractable, without status migrainosus; I48.0 Paroxysmal atrial fibrillation; Z95.0 Presence of cardiac pacemaker; Z96.89 Presence of other specified functional implants
CPT/HCPCS: 51702; 72129; 72132; 80048; 82550; 85025; 85610; 85730; 96361; 96374; 96375; 96376; 99284; J7030; Q9967; A4216; J2405

== ENCOUNTER 2020-02-25 20:12 | Emergency (ER) | payer MEDICARE, MEDICAID, SELFPAY ==
[2020-02-25 20:13] VITALS: BP 143/92; PULSE 108; RESP 22; TEMP 36.3; BMI 31.9
--- NOTE | 2020-02-25 20:39 | CT_ITS ---
STUDY: CT ABDOMEN AND PELVIS WITHOUT CONTRAST REASON FOR EXAM: Female, 50 years old. Abdominal pain and vomiting since yesterday, history of kidney stones. RADIATION DOSAGE (If Supplied By Facility): CTDIvol = ( 13.39 ) mGy, DLP = ( 1299.55 ) mGycm TECHNIQUE: Transaxial images were obtained from the dome of the diaphragm to the symphysis pubis without oral contrast, and without intravenous contrast. Sagittal and coronal images were reconstructed. Individualized dose optimization techniques were used for this CT. COMPARISON: 09/25/2019. FINDINGS: The visualized portions of lung bases demonstrate mild hazy groundglass opacity/infiltrates. There are atelectatic changes in both lower lobes. The visualized portions of the heart are within normal limits. There is diffuse fatty infiltration of the liver. The liver is enlarged. There are surgical clips in the gallbladder fossa consistent with a prior cholecystectomy. Normal spleen. Normal pancreas. Normal bilateral adrenal glands. Residual contrast in the kidneys from previous contrast examination. There is no evidence of hydronephrosis. The gastric body is not well-distended. Normal small intestine. There is diverticulosis of the sigmoid colon. There is no evidence of acute diverticulitis. There is fecal retention. There is mild thickening of the cecum but unchanged since prior exam. The appendix is visualized and appears normal. Normal abdominal aorta. Normal inferior vena cava. Normal retroperitoneum. The bladder is not well-distended. There is absence of the uterus consistent with a prior hysterectomy. There is a very small umbilical hernia containing fat. There is a battery or pain management device in the subcutaneous fat of the left lower quadrant with wire extending into the abdomen anterior to the gastric wall. The patient is status post fusion of L4, L5 and S1 with bilateral pedicle screws. CT/Abdomen/Pelvis without Cont IMPRESSION: 1. Mild bilateral lower lungs hazy ground glass opacity/early infiltrates. 2. Hepatomegaly and fatty infiltration of the liver. 3. Mild thickening of the ascending colon unchanged since prior examination. 4. Diverticulosis without evidence of acute diverticulitis. 5. No evidence of hydronephrosis. Electronically Signed: Collin Hendrix MD at 23:15 EDT Tel , Service support ,
--- NOTE | 2020-02-25 20:39 | EKG12_ITS ---
Test Reason : DYSRHYTHMIA Blood Pressure : / mmHG Vent. Rate : 088 BPM Atrial Rate : 088 BPM P-R Int : 154 ms QRS Dur : 100 ms QT Int : 410 ms P-R-T Axes : 053 035 049 degrees QTc Int : 496 ms Suspect unspecified pacemaker failure Normal sinus rhythm Possible Left atrial enlargement RSR' or QR pattern in V1 suggests right ventricular conduction delay Left ventricular hypertrophy Prolonged QT Abnormal ECG Confirmed by MARIYA JAMES ([id number]), editor & co founder MARQUIS AVILA ([id number]) on 02/27/2020 2:03:36 PM Referred By: TIN Confirmed By:MARIYA JAMES
[2020-02-25] MEDS: LORazepam 2 MG/ML Syringe 1 MG IV (20:48)
[2020-02-25] MEDS: Morphine 4 MG/ML Syringe IV (20:57)
[2020-02-25] MEDS: Ondansetron 4 MG/2 ML Vial IV (20:57)
[2020-02-25 21:01] LABS: Absolute Lymphocyte Count 2.37 X10^3/uL (0.83-4.51); Absolute Neutrophil Count 3.4 X10^3/uL (2.0-7.7); Basophil# 0.05 X10^3/uL; Basophil% 0.8 % (0-1); Eosinophil# 0.06 X10^3/uL; Eosinophils% 0.9 % (0-5); Hematocrit 48.4 % (37-47); Hemoglobin 15.5 g/dL (12.0-15.0); Lymphocyte # 2.37 X10^3/ul (4.0); Mean Corpuscular Hgb 32.6 pg (27.0-32.0); Mean Corpuscular Volume 101.7 fL (81-99); Mean Platelet Vol. 10.5 fl (6.2-12.0); Monocyte% 7.8 % (0-10); NRBC Flagged by Analyzer 0 % (0-5); Neutrophil # 3.41 X10^3/uL (2.7-7.7); Neutrophil % 53.2 % (47-70); Platelet Count 333 K/mm3 (150-450); RBC Distribution Width CV 13.1 % (11.6-14.6); RBC Distribution Width SD 48.9 fl (35.1-43.9); Red Blood Count 4.76 M/mm3 (4.2-5.4); White Blood Count 6.4 K/mm3 (4.4-11.0)
[2020-02-25] MEDS: levETIRAcetam IV 1,000 MG/100 ML BAG 400 MG IV (21:10)
[2020-02-25] MEDS: 0.9% Normal Saline 1,000 ML 1000 ML IV (21:10)
[2020-02-25 21:42] LABS: ALB/GLOB Ratio 1.1 RATIO (0.9-2.4); AST(SGOT) 23 U/L (15-37); Alanine Aminotransfer ALT/SGPT 34 U/L (13-56); Albumin, Serum 3.5 g/dL (3.2-5.0); Alkaline Phosphatase 110 U/L (45-117); Anion Gap 6 (5-15); BUN 12 mg/dL (7-18); BUN/Creat Ratio 15.1 RATIO (10-20); Calcium,Total 8.4 mg/dL (8.5-10.1); Chloride 112 mmol/L (98-107); EST Glomerular Filtration Rate 81 mL/min (>60); Est Glom Filt Rate - Afr Amer 98 mL/min (>60); Estimated Creatinine Clearance 86.94 ml/min; Globulin 3.3 g/dL (2.2-4.2); Glucose 135 mg/dL (74-106); Lipase 83 U/L (73-393); Potassium 3.4 mmol/L (3.5-5.1); Protein, Total 6.8 g/dL (6.4-8.2); Sodium Level 143 mmol/L (136-145)
--- NOTE | 2020-02-25 21:42 | ED.VIS.GEN ---
History of Present Illness Chief Complaint: Nausea/Vomiting Informant: Patient Narrative: 50-year-old female with past medical history of epilepsy, gastroparesis, hypertension presents with concern for seizure today. States that she has had vomiting and diarrhea for the past 2 days. Has been unable to take her medication over the past 48 hours. States that her fianc? witnessed a 2-minute tonic-clonic seizure today. Denies any head injury. States that she is also having abdominal pain which she states is in her upper abdomen. Describes it as sharp and nonradiating. Denies any hematochezia, melena, hematemesis. Denies any chest pain, shortness of breath, diaphoresis. Denies any drugs or alcohol. Past Medical History - Allergies and Home Meds Allergies/Adverse Reactions: Allergies Penicillins Allergy (Verified 01/02/20 20:05) Anaphylaxis propoxyphene napsylate [From Darvocet-N 100] Allergy (Verified 01/02/20 20:05) Rash hydrocodone bitartrate [From Vicodin] Adverse Reaction (Verified 01/02/20 20:05) Itching venom-honey bee [bee venom (honey bee)] Adverse Reaction (Verified 01/02/20 20:05) Chest tightness PLASTIC TAPE Allergy (Uncoded 01/02/20 20:05) blistering IV contrast Adverse Reaction (Uncoded 01/02/20 20:05) Vomiting Primary Care Physician: Ari Sotomayor DO [Primary Care Provider] - Past Medical History: - - epilespsy, gastroparesis Surgical History: appendectomy, cholecystectomy, hysterectomy, - - Lumbar spine surgery, multiple abdominal surgeries, including for kidney tumor, hysterectomy, cholecystectomy, endometriosis, brain aneursyms clamped and coiled, gastric pacemaker placement. Smoking Status: Former smoker - Family History Maternal Family History: Reports: Diabetes Paternal Family History: Reports: Heart Disease Review of Systems General: Denies: Chills, Fever, Sweats Eyes: Denies: Visual changes - bilaterally, Diplopia ENT: Denies: Rhinorrhea, Sore throat Cardiovascular: Denies: Chest pain, Palpitations Respiratory: Denies: Dyspnea, Cough, Dyspnea on exertion Gastrointestinal: Reports: Abdominal pain, Nausea, Vomiting, Diarrhea. Denies: Melena, Hematochezia Genitourinary: Denies: Dysuria, Hematuria, Frequency Musculoskeletal: Denies: Back pain, Extremity Pain Skin: Denies: Rash, Wounds Neurological: Reports: - - seizure. Denies: Headache, Weakness, Numbness Physical Exam Vital Signs/Narrative: Vital Signs Temp Pulse Resp BP 02/25/20 20:13 97.3 F L 108 H 22 H 143/92 H Inital Vital Signs reviewed: Yes General: Well nourished, Well developed, No Acute Distress Head: Normocephalic, Atraumatic Eyes: Perrl, EOMI ENT: Moist mucous membranes, No rhinorrhea Neck: Supple, Nontender Cardiovascular: Regular rate, Regular rhythm, No murmurs Respiratory: No distress, CTA bilaterally, Chest nontender Abdomen: Soft, Nontender, Nondistended, Normal bowel sounds Back: Nontender, Normal Inspection Extremities: Nontender, No edema Skin: Normal color, No rash Neurological: Alert, Oriented x3, Cranial nerves II-XII grossly intact, Normal Strength, Normal Sensation Psychological: Normal affect, Normal Mood Diagnostic/Tx/Re-eval Clinical Impression(s) from Imaging Studies Abdomen/Pelvis CT 02/25/20 20:39 IMPRESSION: 1. Mild bilateral lower lungs hazy ground glass opacity/early infiltrates. 2. Hepatomegaly and fatty infiltration of the liver. 3. Mild thickening of the ascending colon unchanged since prior examination. 4. Diverticulosis without evidence of acute diverticulitis. 5. No evidence of hydronephrosis. Electronically Signed: Collin Hendrix MD at 23:15 EDT Tel , Service support , Laboratory Data 02/25/20 02/25/20 02/25/20 20:10 20:10 21:00 WBC 6.4 RBC 4.76 Hgb 15.5 H Hct 48.4 H MCV 101.7 H MCH 32.6 H MCHC 32.0 RDW Std Deviation 48.9 H RDW Coeff of Bere 13.1 Plt Count 333 MPV 10.5 Immature Gran % (Auto) 0.300 Neut % (Auto) 53.2 Lymph % (Auto) 37.0 Saline % (Auto) 7.8 Eos % (Auto) 0.9 Baso % (Auto) 0.8 Absolute Neuts (auto) 3.4 Absolute Lymphs (auto) 2.37 Nucleated RBC % 0 Sodium Cancelled 143 Potassium Cancelled 3.4 L Chloride Cancelled 112 H Carbon Dioxide Cancelled 25.0 Anion Gap Cancelled 6 BUN Cancelled 12 Creatinine Cancelled 0.80 Estim Creat Clear Calc Cancelled 86.94 Est GFR (MDRD) Af Amer Cancelled 98 Est GFR (MDRD) Non-Af Cancelled 81 BUN/Creatinine Ratio Cancelled 15.1 Glucose Cancelled 135 H Calcium Cancelled 8.4 L Total Bilirubin Cancelled 0.30 AST Cancelled 23 ALT Cancelled 34 Alkaline Phosphatase Cancelled 110 Troponin I Cancelled < 0.015 Total Protein Cancelled 6.8 Albumin Cancelled 3.5 Globulin Cancelled 3.3 Albumin/Globulin Ratio Cancelled 1.1 Lipase Cancelled 83 Urine Color Urine Clarity Urine pH Ur Specific [place] Urine Protein Urine Glucose (UA) Urine Ketones Urine Occult Blood Urine Nitrite Urine Bilirubin Urine Urobilinogen Ur Leukocyte Esterase Urine RBC Urine WBC Ur Squamous Epith Cells Urine Bacteria Urine Mucus 02/25/20 21:52 WBC RBC Hgb Hct MCV MCH MCHC RDW Std Deviation RDW Coeff of Bere Plt Count MPV Immature Gran % (Auto) Neut % (Auto) Lymph % (Auto) Saline % (Auto) Eos % (Auto) Baso % (Auto) Absolute Neuts (auto) Absolute Lymphs (auto) Nucleated RBC % Sodium Potassium Chloride Carbon Dioxide Anion Gap BUN Creatinine Estim Creat Clear Calc Est GFR (MDRD) Af Amer Est GFR (MDRD) Non-Af BUN/Creatinine Ratio Glucose Calcium Total Bilirubin AST ALT Alkaline Phosphatase Troponin I Total Protein Albumin Globulin Albumin/Globulin Ratio Lipase Urine Color Yellow Urine Clarity Clear Urine pH 5.0 Ur Specific [place] 1.020 Urine Protein 15 H Urine Glucose (UA) Normal Urine Ketones 5 H Urine Occult Blood 25 H Urine Nitrite Negative Urine Bilirubin 1 H Urine Urobilinogen 1 H Ur Leukocyte Esterase 25 H Urine RBC 0-5 SEEN Urine WBC 0-5 SEEN Ur Squamous Epith Cells 0-5 SEEN Urine Bacteria RARE Urine Mucus 1+ - Rhythm Strip Rhythm Strip: Sinus Rhythm Rate: 88 Ectopy: None - EKG Initial EKG Interpretation: Sinus Rhythm - Normal sinus rhythm at 88 bpm. WI interval of 154 ms. QTC of 496 ms. Specific intraventricular block. Artifact from patient's abdominal stimulator. - Medical Decision Making On arrival patient is not actively vomiting. Does have a very brief seizure without significant postictal period. Was given 1 mg of Ativan as well as her Keppra through IV. Patient was given Zofran as well as morphine for her abdominal pain. CT shows no acute process. Lab work shows a mild hypokalemia which she was advised on increasing her diet and and potassium rich foods. Patient was given 1 L of normal saline. After observation for 3 hours patient is feeling much improved. Will be given Phenergan at home given the patient's prolonged QTC. Advised to return if any intractable vomiting or further breakthrough seizures. I did offer patient observation in the hospital but wishes to be discharged home. Discharged home in stable condition. ED Disposition - Plan for ED Patient: Disposition: Home or Assisted Living Diagnosis: Vomiting, Seizure, Gastroparesis Instructions: ED Nausea Vomiting Adult Prescriptions: proMETHazine tablet [Phenergan tablet] 25 mg PO Q8H PRN PRN #12 tab PRN Reason: Vomiting Transmission Status: Pending to [id number] Referrals: Ari Sotomayor DO [Primary Care Provider] -
[2020-02-25 22:04] LABS: Color, Urine Yellow (Yellow); Glucose, Dipstick Normal (Normal); Ketone-Dipstick 5 mg/dl (Negative); Leukocyte Esterase-Dipstick 25 /ul (Negative); Nitrite-Dipstick Negative (Negative); Occult Blood-Urine 25 /ul (Negative); Protein-Dipstick 15 mg/dl (Negative); Urine Clarity Clear (Clear); Urine Urobilinogen 1 mg/dl (Normal)
[2020-02-25 22:08] LABS: Urine Bilirubin Dipstick 1 mg/dL (Negative)
[2020-02-25 22:11] LABS: Bacteria RARE /hpf (None Seen); Mucous, Urine 1+ /hpf (<or=2+); Red Blood Cells-Urine 0-5 SEEN /hpf (0-5); Squamous Epithelial Cells - UA 0-5 SEEN /hpf (5-10); White Blood Cells 0-5 SEEN /hpf (0-5)
[2020-02-25 23:23] VITALS: BP 124/84; PULSE 75; RESP 12; O2SAT 94
[2020-02-25 23:47] VITALS: BP 124/84; PULSE 76; RESP 12; O2SAT 98
== END 2020-02-25 23:48 | disposition home or self-care (01) ==
PROVIDERS: Emergency Provider Emergency Medicine; PCP Family Medicine
DX: K31.84 Gastroparesis (principal); G40.909 Epilepsy, unspecified, not intractable, without status epilepticus; I10 Essential (primary) hypertension; R94.31 Abnormal electrocardiogram [ECG] [EKG]; Z90.710 Acquired absence of both cervix and uterus; Z90.49 Acquired absence of other specified parts of digestive tract; Z87.891 Personal history of nicotine dependence
CPT/HCPCS: 74176; 80053; 81001; 83690; 84484; 85025; 93005; 96365; 96375; 99283; J7030; A4216; J2405

== ENCOUNTER 2020-02-27 20:19 | Emergency (ER) | payer MEDICARE, MEDICAID, SELFPAY ==
[2020-02-27 20:28] VITALS: BP 142/105; PULSE 101; RESP 23; TEMP 36.5; O2SAT 94; BMI 32.9
[2020-02-27 20:34] VITALS: BP 132/92; PULSE 98; RESP 12; O2SAT 96
--- NOTE | 2020-02-27 20:36 | EKG12_ITS ---
Test Reason : CHEST PAIN Blood Pressure : / mmHG Vent. Rate : 093 BPM Atrial Rate : 093 BPM P-R Int : 164 ms QRS Dur : 094 ms QT Int : 376 ms P-R-T Axes : 053 046 067 degrees QTc Int : 467 ms Normal sinus rhythm Possible Left atrial enlargement RSR' or QR pattern in V1 suggests right ventricular conduction delay Left ventricular hypertrophy Abnormal ECG Confirmed by FRANKLIN RICHARDSON, MALLORY ([id number]), video tape editor JOSE ANGEL FONTANA ([id number]) on 02/29/2020 10:12:02 AM Referred By: ALEE Confirmed By:MALLORY REID MD
--- NOTE | 2020-02-27 20:37 | RAD_ITS ---
STUDY: X-RAY - UNILATERAL RIBS ( LEFT ) WITH CHEST REASON FOR EXAM: Female, 50 years old. Pain. Fall. TECHNIQUE - RIBS: 4 view(s) of the ribs. TECHNIQUE - CHEST: Frontal view COMPARISON: 04/20/2019 FINDINGS - RIBS: There are no displaced rib fractures identified. FINDINGS - CHEST: The lungs are clear. There are no pleural effusions. There is no pneumothorax. The heart is normal in size. RAD/Ribs Uni Min 3V w/PA Chest IMPRESSION: RIBS: No displaced rib fracture identified. CHEST: Clear lungs. Electronically Signed: Stephan Darby, at 21:36 EDT Tel , Service support ,
[2020-02-27] MEDS: 0.9% Normal Saline 1,000 ML 1000 ML IV (20:46)
[2020-02-27] MEDS: Ondansetron 4 MG/2 ML Vial IV ×2 (20:46→21:35)
--- NOTE | 2020-02-27 21:05 | RAD_ITS ---
STUDY: X-RAY - LEFT ELBOW REASON FOR EXAM: Female, 50 years old. Fall. Pain. TECHNIQUE: 3 view(s) of the elbow. COMPARISON: None. FINDINGS: There is no evidence of fracture or dislocation. There are no significant degenerative changes. There are no radiodense foreign bodies. RAD/Elbow min 3 Views IMPRESSION: No fracture or dislocation. Electronically Signed: Stephan Darby, at 21:32 EDT Tel , Service support ,
[2020-02-27 21:25] LABS: ALB/GLOB Ratio 1.1 RATIO (0.9-2.4); AST(SGOT) 30 U/L (15-37); Alanine Aminotransfer ALT/SGPT 37 U/L (13-56); Albumin, Serum 3.7 g/dL (3.2-5.0); Alkaline Phosphatase 118 U/L (45-117); Anion Gap 7 (5-15); BUN 8 mg/dL (7-18); BUN/Creat Ratio 11.1 RATIO (10-20); Calcium,Total 9.1 mg/dL (8.5-10.1); Chloride 110 mmol/L (98-107); Creatinine, Serum 0.72 mg/dL (0.55-1.02); EST Glomerular Filtration Rate 90 mL/min (>60); Est Glom Filt Rate - Afr Amer 109 mL/min (>60); Estimated Creatinine Clearance 96.61 ml/min; Globulin 3.5 g/dL (2.2-4.2); Glucose 101 mg/dL (74-106); Potassium 3.9 mmol/L (3.5-5.1); Protein, Total 7.2 g/dL (6.4-8.2); Sodium Level 142 mmol/L (136-145)
[2020-02-27 21:34] LABS: Absolute Lymphocyte Count 2.31 X10^3/uL (0.83-4.51); Absolute Neutrophil Count 4.8 X10^3/uL (2.0-7.7); Basophil# 0.04 X10^3/uL; Basophil% 0.5 % (0-1); Eosinophil# 0.07 X10^3/uL; Eosinophils% 0.9 % (0-5); Hematocrit 45.4 % (37-47); Hemoglobin 14.6 g/dL (12.0-15.0); Lymphocyte # 2.31 X10^3/ul (4.0); Lymphocyte % 29.2 % (19-41); Mean Corp Hgb Conc 32.2 g/dL (32-36); Mean Corpuscular Hgb 31.8 pg (27.0-32.0); Mean Corpuscular Volume 98.9 fL (81-99); Mean Platelet Vol. 10.4 fl (6.2-12.0); Monocyte# 0.68 X10^3/uL; Monocyte% 8.6 % (0-10); NRBC Flagged by Analyzer 0 % (0-5); Neutrophil # 4.79 X10^3/uL (2.7-7.7); Neutrophil % 60.5 % (47-70); Platelet Count 340 K/mm3 (150-450); RBC Distribution Width CV 12.8 % (11.6-14.6); RBC Distribution Width SD 46.2 fl (35.1-43.9); Red Blood Count 4.59 M/mm3 (4.2-5.4); White Blood Count 7.9 K/mm3 (4.4-11.0)
[2020-02-27] MEDS: Ketorolac 30 MG/ML Syringe IV (21:35)
[2020-02-27 21:43] LABS: Bacteria 0 SEEN /hpf (None Seen); Mucous, Urine 0 SEEN /hpf (<or=2+); Squamous Epithelial Cells - UA 0 SEEN /hpf (5-10); White Blood Cells 0 SEEN /hpf (0-5)
[2020-02-27 21:44] LABS: Color, Urine Yellow (Yellow); Glucose, Dipstick Normal (Normal); Ketone-Dipstick Negative (Negative); Leukocyte Esterase-Dipstick Negative /ul (Negative); Nitrite-Dipstick Negative (Negative); Occult Blood-Urine 25 /ul (Negative); Protein-Dipstick Negative (Negative); Urine Bilirubin Dipstick Negative (Negative); Urine Clarity Clear (Clear); Urine Urobilinogen Normal (Normal)
[2020-02-27 21:53] LABS: Red Blood Cells-Urine 0-5 SEEN /hpf (0-5)
[2020-02-27 22:25] VITALS: BP 122/68; PULSE 82; RESP 14; O2SAT 97
[2020-02-27] MEDS: Morphine 2 MG/ML Syringe IV (22:25)
--- NOTE | 2020-02-27 23:10 | ED.DCSUM_ITS ---
- ER Visit Summary Date of Service: 02/27/20 Chief Complaint: Seizure History of Present Illness: The patient is a 50 F presents after a seizure that occurred today. Patient has a history of seizures and takes Keppra for those. Patient states she has been having some nausea and vomiting over the past couple days. Patient states she has been unable to keep her Keppra down. Patient was seen here recently and had a prescription for Phenergan but did not get this filled. Patient admits to subjective chills and sweats. Patient admits to a headache. Patient admits to pain in her neck and back which are typical after her seizures. Patient denies any shortness of breath or cough. Patient did have a seizure upon arrival here in the emergency department however, she had a very short postictal state and was talking coherently when I entered the room. Patient also complains of pain in her left elbow and left ribs. Patient states she fell on her left side when she had a seizure. Physical Examination: Vital signs are stable. Patient is afebrile. Patient is in no acute distress. Oral mucosa is pink and moist. Neck is supple. Trachea is midline. There is no JVD noted. Heart was regular rate and rhythm. Lungs are clear and equal bilaterally. Abdomen is soft. Bowel sounds are normal. There is no tenderness. There is no rebound or guarding noted. Skin is warm dry. Cranial nerves II through XII are intact. There are no focal motor or sensory deficits noted. Extremities are intact. There is no calf tenderness or edema. Test Results: EKG showed normal sinus rhythm with a rate of 93. There are no acute ST or T wave changes. X-rays of the left ribs were obtained. There are no acute fractures. Lungs are clear. CBC, comprehensive metabolic profile, urinalysis, and troponin were obtained and were all within normal limits. Emergency Department Course and Treatment: Seizure precautions were maintained. Patient had no further seizure activity here. Patient was given a dose of Zofra n initially. Patient was given Toradol for her left rib pain. Patient states she was still nauseated. Patient was given a repeat dose of Zofran. Patient states she was still having pain in her left side and was given a dose of morphine. Patient was also given a dose of Keppra IV. Patient is feeling better. Patient was given a prescription for Zofran to go home with. Patient was instructed to follow-up with her primary care physician in 5 to 7 days. Patient understood and was agreeable with the plan. All questions were answered. Disposition: Discharge home Impression: Seizure This note was generated with [employer] (Closed) dictation software. It may contain incorrect words, spelling, and punctuation that were not noted in review of the chart prio r to signing ED Disposition - Plan for ED Patient: Disposition: Home or Assisted Living Diagnosis: Seizure Instructions: ED Seizure Recurrent Adult Prescriptions: Ondansetron [Zofran Odt] 4 mg PO Q8H PRN PRN #10 tab PRN Reason: Nausea Prescription Printed Referrals: Ari Sotomayor DO [Primary Care Provider] - 5-7 Days
[2020-02-27 23:47] VITALS: BP 133/83; PULSE 84; RESP 16; O2SAT 98
== END 2020-02-27 23:47 | disposition home or self-care (01) ==
PROVIDERS: Emergency Provider Emergency Medicine; PCP Family Medicine
DX: G40.909 Epilepsy, unspecified, not intractable, without status epilepticus (principal); R11.2 Nausea with vomiting, unspecified; E66.9 Obesity, unspecified
CPT/HCPCS: 71101; 73080; 80053; 81001; 84484; 85025; 93005; 96365; 96375; 96376; 99285; J7030; J2405

== ENCOUNTER 2020-03-30 22:11 | Emergency (ER) | payer MEDICARE, MEDICAID, SELFPAY ==
[2020-03-30 22:12] VITALS: BP 166/71; PULSE 88; RESP 16; TEMP 36.9; O2SAT 95; BMI 31.0
--- NOTE | 2020-03-30 22:20 | RAD_ITS ---
HISTORY: pain after fall COMPARISON: CT scan of the thoracic spine from January 02, 2020 FINDINGS: # of images incl. paperwork: 2 XR Spine Thoracic 2 Views: Anterior cervical fixation hardware remains. Scoliosis and kyphosis remains. Thoracic vertebral bodies are normal in height. No acute thoracic spine fracture or subluxation. No significant degenerative change. RAD/Thoracic Spine 2 Views IMPRESSION: No acute thoracic spine fracture or subluxation. at 2334 Reported and signed by: Ryan Schaefer MD Electronically Signed: Ryan Schaefer MD at 23:32 EDT Tel , Service support ,
--- NOTE | 2020-03-30 22:21 | ED.DCSUM_ITS ---
History of Present Illness Chief Complaint: Fall Informant: Patient Narrative: Stated she had a mechanical fall just prior to arrival. She slipped on the top of her steps and fell onto her left elbow and buttock. She slid down approximately 10 steps. They were wooden. She did not hit her head. She did not lose consciousness. She is having pain in the left elbow and left side of her neck. She has some tenderness in the mid part of her thoracic back. No home treatment. Current severity is moderate. Worse by movement. Relieved by nothing. - Past Medical History (1) Generalized seizure disorder Status: Acute (2) Neck pain Status: Acute (3) Seizure Status: Acute (4) Trapezius muscle spasm Status: Acute (5) 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 Status: Chronic (6) CVA (cerebral vascular accident) Status: Chronic (7) Depression Status: Chronic (8) Gastroparesis Status: Chronic (9) History of lumbar fusion Status: Chronic (10) History of stroke without residual deficits Status: Chronic (11) IT band syndrome Status: Chronic (12) Migraine Status: Chronic (13) Nondiabetic gastroparesis Status: Chronic (14) PAF (paroxysmal atrial fibrillation) Status: Chronic (15) PTSD (post-traumatic stress disorder) Status: Chronic (16) Seizure disorder Status: Chronic (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 difficile colitis Status: Inactive (22) Esophageal obstruction due to food impaction Status: Inactive Past Medical History - Allergies and Home Meds Allergies/Adverse Reactions: Allergies Penicillins Allergy (Verified 02/27/20 20:19) Anaphylaxis propoxyphene napsylate [From Darvocet-N 100] Allergy (Verified 02/27/20 20:19) Rash hydrocodone bitartrate [From Vicodin] Adverse Reaction (Verified 02/27/20 20:19) Itching venom-honey bee [bee venom (honey bee)] Adverse Reaction (Verified 02/27/20 20:19) Chest tightness PLASTIC TAPE Allergy (Uncoded 02/27/20 20:19) blistering IV contrast Adverse Reaction (Uncoded 02/27/20 20:19) Vomiting Primary Care Physician: Fracasso,Ari, DO [Primary Care Provider] - Prior records reviewed: Yes Past Medical History: - - See problem list Surgical History: appendectomy, cholecystectomy, hysterectomy, - - Lumbar spine surgery, multiple abdominal surgeries, including for kidney tumor, hysterectomy, cholecystectomy, endometriosis, brain aneursyms clamped and coiled, gastric pacemaker placement. Lives: With Family Smoking Status: Former smoker Alcohol: None Drugs: None - Family History Maternal Family History: Reports: Diabetes Paternal Family History: Reports: Heart Disease Review of Systems General: Denies: Chills, Fever, Sweats Eyes: Denies: Visual changes - bilaterally, Diplopia ENT: Denies: Rhinorrhea, Sore throat Cardiovascular: Denies: Chest pain, Palpitations Respiratory: Denies: Dyspnea, Cough, Dyspnea on exertion Gastrointestinal: Denies: Abdominal pain, Nausea, Vomiting, Diarrhea, Melena, Hematochezia Genitourinary: Denies: Dysuria, Hematuria, Frequency Musculoskeletal: Reports: Back pain, Extremity Pain Skin: Denies: Rash, Wounds Neurological: Denies: Headache, Weakness, Numbness Physical Exam Vital Signs/Narrative: Vital Signs Temp Pulse Resp BP Pulse Ox 03/30/20 22:12 98.4 F 88 16 166/71 H 95 General: Well nourished, Well developed, No Acute Distress Head: Normocephalic, Atraumatic. Negative for: Trauma Eyes: Perrl, EOMI ENT: Moist mucous membranes, No rhinorrhea Neck: Supple, Nontender, - - In the left paracervical neck with decreased range of motion secondary to pain. No swelling or deformity Cardiovascular: Regular rate, Regular rhythm, No murmurs Respiratory: No distress, CTA bilaterally, Chest nontender Abdomen: Soft, Nontender, Nondistended, Normal bowel sounds Back: Nontender, Normal Inspection, Spinal tenderness - Midthoracic back tenderness no swelling or deformity. Negative for: CVA tenderness Extremities: Nontender, No edema, Tenderness - Palpation left elbow diffusely. No swelling or deformity or contusion. Decreased range of motion secondary to pain. Skin: Normal color, No rash Neurological: Alert, Oriented x3, Cranial nerves II-XII grossly intact, Normal Strength, Normal Sensation Psychological: Normal affect, Normal Mood Diagnostic/Tx/Re-eval - Medical Decision Making Given injection of Toradol and ice pack. X-ray of the left elbow cervical spine and thoracic obtain. X-rays show no fractures to his degenerative changes. Patient given elbow sling. [place] better after treatment. We will follow-up as an outpatient and take anti-inflammatories for suspected left-sided neck strain and thoracic back contusion and elbow contusion ED Disposition - Plan for ED Patient: Disposition: Home or Assisted Living Diagnosis: Contusion of elbow, Back contusion, Neck strain Instructions: ED SOFT TISSUE CONTUSION, ED ELBOW CONTUSION Referrals: Ari Sotomayor DO [Primary Care Provider] -
--- NOTE | 2020-03-30 22:21 | RAD_ITS ---
HISTORY: left arm pain after fall Comparison:None Findings: 3 views of the left elbow. No acute fracture distal humerus, proximal radius or proximal ulna. No evidence of an elbow joint effusion. Bony alignment is normal. RAD/Elbow min 3 Views IMPRESSION: No radiographic abnormality of left elbow at 2326 Reported and signed by: Ryan Schaefer MD Electronically Signed: Ryan Schaefer MD at 23:25 EDT Tel , Service support ,
[2020-03-30] MEDS: Ketorolac 15 MG/ML Vial IM (22:29)
--- NOTE | 2020-03-30 22:40 | RAD_ITS ---
HISTORY: neck pain after fall COMPARISON: Of the patient's 160 previous radiologic exams at this institution alone, the most recent comparison CT scan of the cervical spine, which is also the most recent imaging dedicated to the cervical spine at this institution of any kind is from June 01, 2019 FINDINGS: # of images incl. paperwork: 4 XR Spine Cervical 4 images: 4 images of the cervical spine were obtained. Anterior cervical fixation and fusion across the C6-C7 disc space is unchanged All 7 cervical vertebral bodies are identified. No acute cervical spine fracture or subluxation. Normal cervical spine alignment. Odontoid is intact. Degenerative disc disease remains at other levels with loss of disc height, endplate sclerosis, and anterior enthesophytes. Facet arthropathy remains. RAD/Cerv Spine 2 or 3 Views IMPRESSION: No acute cervical spine fracture or subluxation. at 2343 Reported and signed by: Ryan Schaefer MD Electronically Signed: Ryan Schaefer MD at 23:42 EDT Tel , Service support ,
[2020-03-31 00:02] VITALS: BP 156/68; PULSE 78; RESP 18; O2SAT 96
== END 2020-03-31 00:03 | disposition home or self-care (01) ==
PROVIDERS: Emergency Provider Emergency Medicine; PCP Family Medicine
DX: S16.1XXA Strain of muscle, fascia and tendon at neck level, initial encounter (principal); S50.02XA Contusion of left elbow, initial encounter; S20.229A Contusion of unspecified back wall of thorax, initial encounter; W10.8XXA Fall (on) (from) other stairs and steps, initial encounter; Y93.9 Activity, unspecified; Y92.9 Unspecified place or not applicable; I48.0 Paroxysmal atrial fibrillation; G40.409 Other generalized epilepsy and epileptic syndromes, not intractable, without status epilepticus; F32.9 Major depressive disorder, single episode, unspecified; F43.10 Post-traumatic stress disorder, unspecified; Z98.1 Arthrodesis status; Z79.899 Other long term (current) drug therapy; Z87.891 Personal history of nicotine dependence; Z86.73 Personal history of transient ischemic attack (TIA), and cerebral infarction without residual deficits
CPT/HCPCS: 72040; 72070; 73080; 96372; 99283

== ENCOUNTER 2020-06-18 15:55 | Emergency (ER) | payer MEDICARE, MEDICAID, SELFPAY ==
[2020-06-18] VITALS (7 sets, daily range): BP systolic 117–155; BP diastolic 80–95; PULSE 70–98; RESP 15–18; TEMP 35.9–37.2; O2SAT 94–97; BMI 31.8
--- NOTE | 2020-06-18 17:10 | CT_ITS ---
STUDY: CT ABDOMEN AND PELVIS WITH CONTRAST REASON FOR EXAM: Female, 50 years old. ABD PAIN, BLOATING, N/V/D RADIATION DOSAGE (If Supplied By Facility): CTDIvol = ( 19.28 ) mGy, DLP = ( 1000.42 ) mGycm TECHNIQUE: Transaxial images were obtained from the dome of the diaphragm to the symphysis pubis without oral contrast. Oral and amp; IV Gastrografin and amp; 100mL Isovue-370 was administered. Sagittal and coronal images were reconstructed. Individualized dose optimization techniques were used for this CT. COMPARISON: 02/25/2020 FINDINGS: The visualized lung bases are unremarkable. The visualized portions of the heart are within normal limits. There is decreased attenuation of the liver consistent with steatosis. There is hepatomegaly. There are surgical clips in the gallbladder fossa consistent with a prior cholecystectomy. The common bile duct remains dilated measuring up to 11.1 mm. Normal spleen. Normal pancreas. Normal bilateral adrenal glands. There are too small to characterize low-attenuation foci within the kidneys that may reflect underlying cysts. Normal visualized stomach. Normal small intestine. There are scattered diverticula arising from the colon. The colon is incompletely distended. There is circumferential wall thickening of the descending and sigmoid colon as well as the rectum. There is non-visualization of the appendix. Normal abdominal aorta. Normal inferior vena cava. Normal retroperitoneum. Normal urinary bladder. There is a stimulator within the anterior abdominal wall with leads terminating adjacent to the left hepatic lobe there are bilateral pedicle screws associated with posterior spinal rods of L4-S1. CT/Abdomen/Pelvis WITH Contrast IMPRESSION: Fatty infiltration of the liver associated with hepatomegaly. Circumferential wall thickening of the colon and rectum, may be secondary to the incompletely distended state however cannot exclude underlying proctocolitis. Electronically Signed: Nellie Mares MD at 20:08 EDT Tel , Service support ,
--- NOTE | 2020-06-18 17:12 | ED.VIS.GI ---
History of Present Illness Chief Complaint: Abd Pain Informant: Patient - Abdominal Pain/Flank Pain Onset: Days - 3 Context: Gradual Onset Timing: Continuous Quality: Sharp Location: - - both upper quads and both lower quads Current Severity: Severe Maximum Severity: Severe Worsened by: Food Relieved by: Nothing - Nausea/Vomiting/Emesis GI Symptom: Nausea, Vomiting Onset: Days - 3 Quality: Nonbilious. Negative for: Blood streaks, Coffee ground, Hematemesis - Diarrhea/Melena/Hematochezia GI Symptom: Diarrhea. Negative for: Melena, Hematochezia Onset: Days - 3 Stool Quality: Watery. Negative for: Black, Maroon, OTILIA per rectum Severity: Severe Associated Symptoms: - - decreased UOP. hard to push urine out.. 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 difficile colitis. She has been trying to be very careful in bleach/clean everything around the house to avoid getting it. She believes she may have contracted it. She has had abdominal swelling/bloating, vomiting, and lots of watery diarrhea. She states the symptoms are getting out of control and she is having trouble keeping any fluids down at all. She denies recent travel out of the region. No contact with anyone with COVID-19 that she knows of. She has a gastric pacemaker as a result of gastroparesis that was thought to be the result of a stroke that affected the left side of her body. She is not a diabetic. 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 Comment: removed Past Medical History - Allergies and Home Meds Allergies/Adverse Reactions: Allergies Penicillins Allergy (Verified 06/18/20 15:55) Anaphylaxis propoxyphene napsylate [From Darvocet-N 100] Allergy (Verified 06/18/20 15:55) Rash hydrocodone bitartrate [From Vicodin] Adverse Reaction (Verified 06/18/20 15:55) Itching venom-honey bee [bee venom (honey bee)] Adverse Reaction (Verified 06/18/20 15:55) Chest tightness PLASTIC TAPE Allergy (Uncoded 02/27/20 20:19) blistering IV contrast Adverse Reaction (Uncoded 02/27/20 20:19) Vomiting Primary Care Physician: Ari Sotomayor DO [Primary Care Provider] - 5-7 Days Surgical History: appendectomy, cholecystectomy, hysterectomy, - - Lumbar spine surgery, multiple abdominal surgeries, including for kidney tumor, hysterectomy, cholecystectomy, endometriosis, brain aneursyms clamped and coiled, gastric pacemaker placement. Lives: With Family Smoking Status: Never smoker - Family History Maternal Family History: Reports: Diabetes Paternal Family History: Reports: Heart Disease Review of Systems General: Reports: Chills, Malaise. Denies: Fever, Sweats Eyes: Denies: Visual changes - bilaterally, Diplopia ENT: Denies: Rhinorrhea, Sore throat Cardiovascular: Denies: Chest pain, Palpitations Respiratory: Denies: Dyspnea, Cough, Dyspnea on exertion Gastrointestinal: Reports: Abdominal pain, Nausea, Vomiting, Diarrhea. Denies: Melena, Hematochezia Genitourinary: Denies: Dysuria, Hematuria, Frequency Musculoskeletal: Reports: Back pain - low. Denies: Myalgias, Swelling, Extremity Pain Skin: Denies: Rash, Wounds Neurological: Denies: Headache, Weakness, Numbness Physical Exam Vital Signs/Narrative: Vital Signs Temp Pulse Resp BP Pulse Ox 06/18/20 15:55 96.7 F L 98 17 155/95 H 96 Inital Vital Signs reviewed: Yes General: Well nourished, Well developed, Obese, No Acute Distress Head: Normocephalic, Atraumatic Eyes: Perrl, EOMI ENT: Moist mucous membranes, No rhinorrhea Neck: Supple, Nontender Cardiovascular: Regular rate, Regular rhythm, No murmurs Respiratory: No distress, CTA bilaterally, Chest nontender Abdomen: Soft, Tender - Throughout left side and epigastrium, Guarding - Voluntary left upper quadrant only, Hypoactive bowel sounds. Negative for: Rebound tenderness, Pulsatile mass Back: Nontender, Normal Inspection. Negative for: CVA tenderness Extremities: Nontender, No edema Skin: Normal color, No rash, No Trauma Neurological: Alert, Oriented x3, Cranial nerves II-XII grossly intact, Normal Strength, Normal Sensation Psychological: Normal affect, Normal Mood Diagnostic/Tx/Re-eval Impressions Abdomen/Pelvis CT 06/18/20 17:10 IMPRESSION: Fatty infiltration of the liver associated with hepatomegaly. Circumferential wall thickening of the colon and rectum, may be secondary to the incompletely distended state however cannot exclude underlying proctocolitis. Electronically Signed: Nellie Mares MD at 20:08 EDT Tel , Service support , 06/18/20 17:10 Abdomen/Pelvis WITH Contrast [CT] Stat Laboratory Results 06/18/20 06/18/20 17:36 17:36 WBC 7.8 RBC 4.85 Hgb 15.6 H Hct 46.7 MCV 96.3 MCH 32.2 H MCHC 33.4 RDW Std Deviation 43.5 RDW Coeff of Bere 12.2 Plt Count 314 MPV 10.3 Immature Gran % (Auto) 0.300 Neut % (Auto) 53.8 Lymph % (Auto) 37.4 [place] % (Auto) 7.2 Eos % (Auto) 0.8 Baso % (Auto) 0.5 Absolute Neuts (auto) 4.2 Absolute Lymphs (auto) 2.92 Nucleated RBC % 0 Sodium 143 Potassium 3.6 Chloride 109 H Carbon Dioxide 25.0 Anion Gap 9 BUN 9 Creatinine 0.69 Estim Creat Clear Calc 100.81 Est GFR (MDRD) Af Amer 115 Est GFR (MDRD) Non-Af 95 BUN/Creatinine Ratio 13.0 Glucose 86 Calcium 9.5 Total Bilirubin 0.40 AST 30 ALT 37 Alkaline Phosphatase 133 H Total Protein 7.7 Albumin 4.1 Globulin 3.6 Albumin/Globulin Ratio 1.1 Lipase 93 - Medical Decision Making Patient is feeling better after morphine, Bentyl, Reglan, IV fluids. She is tolerating oral fluids, the pain did recur after her CT scan. No obstruction seen, however I think the results are consistent with proctocolitis due to C. difficile, which she is certainly at risk for given her recent exposure. Her test is sent and pending, I will treat her empirically. However she has had this before so this is her first recurrence. He was treated with oral vancomycin before, not metronidazole. She states she was admitted here and tested positive for that. We will start her on oral vancomycin 125 mg every 6 hours for 14 days. I discussed with her PCP, who agrees with starting her on a 14-day course and he will follow up with her in the office if she calls makes an appointment which she was advised to do. She tolerated fluids here and she is comfortable going home. ED Disposition - Plan for ED Patient: Disposition: Home or Assisted Living Diagnosis: C. difficile colitis Instructions: Clostridium difficile Infection, ED Gastroenteritis Bacterial Prescriptions: traMADol [Ultram] 50 mg PO Q4H PRN PRN 3 Days #12 tab PRN Reason: Pain Prescription Printed Vancomycin HCl 125 mg PO 4X/DAY #56 cap Prescription Printed Ondansetron [Zofran Odt] 8 mg PO Q8H PRN PRN #20 tab PRN Reason: Nausea Prescription Printed Referrals: Ari Sotomayor DO [Primary Care Provider] - 5-7 Days
[2020-06-18] MEDS: 0.9% Normal Saline 1,000 ML 1000 ML IV (18:10)
[2020-06-18] MEDS: Metoclopramide 10 MG/2 ML Vial IV (18:10)
[2020-06-18] MEDS: Dicyclomine 20 MG/2 ML Vial IM (18:10)
[2020-06-18] MEDS: Morphine 4 MG/ML Syringe IV ×2 (18:10→21:22)
[2020-06-18 18:41] LABS: Absolute Lymphocyte Count 2.92 X10^3/uL (0.83-4.51); Absolute Neutrophil Count 4.2 X10^3/uL (2.0-7.7); Basophil# 0.04 X10^3/uL; Basophil% 0.5 % (0-1); Eosinophil# 0.06 X10^3/uL; Eosinophils% 0.8 % (0-5); Hematocrit 46.7 % (37-47); Hemoglobin 15.6 g/dL (12.0-15.0); Lymphocyte # 2.92 X10^3/ul (4.0); Lymphocyte % 37.4 % (19-41); Mean Corp Hgb Conc 33.4 g/dL (32-36); Mean Corpuscular Hgb 32.2 pg (27.0-32.0); Mean Corpuscular Volume 96.3 fL (81-99); Mean Platelet Vol. 10.3 fl (6.2-12.0); Monocyte# 0.56 X10^3/uL; Monocyte% 7.2 % (0-10); NRBC Flagged by Analyzer 0 % (0-5); Neutrophil % 53.8 % (47-70); Platelet Count 314 K/mm3 (150-450); RBC Distribution Width CV 12.2 % (11.6-14.6); RBC Distribution Width SD 43.5 fl (35.1-43.9); Red Blood Count 4.85 M/mm3 (4.2-5.4); White Blood Count 7.8 K/mm3 (4.4-11.0)
[2020-06-18 18:46] LABS: ALB/GLOB Ratio 1.1 RATIO (0.9-2.4); AST(SGOT) 30 U/L (15-37); Alanine Aminotransfer ALT/SGPT 37 U/L (13-56); Albumin, Serum 4.1 g/dL (3.2-5.0); Alkaline Phosphatase 133 U/L (45-117); Anion Gap 9 (5-15); BUN 9 mg/dL (7-18); Calcium,Total 9.5 mg/dL (8.5-10.1); Chloride 109 mmol/L (98-107); Creatinine, Serum 0.69 mg/dL (0.55-1.02); EST Glomerular Filtration Rate 95 mL/min (>60); Est Glom Filt Rate - Afr Amer 115 mL/min (>60); Estimated Creatinine Clearance 100.81 ml/min; Globulin 3.6 g/dL (2.2-4.2); Glucose 86 mg/dL (74-106); Lipase 93 U/L (73-393); Potassium 3.6 mmol/L (3.5-5.1); Protein, Total 7.7 g/dL (6.4-8.2); Sodium Level 143 mmol/L (136-145)
[2020-06-18] MEDS: Ondansetron 4 MG/2 ML Vial IV (21:15)
== END 2020-06-18 22:33 | disposition home or self-care (01) ==
PROVIDERS: Emergency Provider Emergency Medicine; PCP Family Medicine
DX: A04.72 Enterocolitis due to Clostridium difficile, not specified as recurrent (principal); G40.409 Other generalized epilepsy and epileptic syndromes, not intractable, without status epilepticus; K31.84 Gastroparesis; I48.0 Paroxysmal atrial fibrillation; E66.9 Obesity, unspecified; Z95.0 Presence of cardiac pacemaker; Z90.49 Acquired absence of other specified parts of digestive tract; Z90.710 Acquired absence of both cervix and uterus; Z88.0 Allergy status to penicillin; Z88.5 Allergy status to narcotic agent; Z86.73 Personal history of transient ischemic attack (TIA), and cerebral infarction without residual deficits
CPT/HCPCS: 74177; 80053; 83690; 85025; 87493; 96361; 96372; 96374; 96375; 96376; 99284; J7030; Q9967; A4216; J2405

== ENCOUNTER 2020-08-25 19:10 | Emergency (ER) | payer MEDICARE, MEDICAID, SELFPAY ==
[2020-06-18 15:55] VITALS: BMI 31.8
[2020-08-25 19:11] VITALS: BP 156/126; PULSE 102; RESP 17; TEMP 35.6; O2SAT 97; BMI 29.5
[2020-08-25 19:22] VITALS: PULSE 101; RESP 18; O2SAT 97
--- NOTE | 2020-08-25 20:12 | ED.DCSUM_ITS ---
- ER Visit Summary Date of Service: 08/25/20 Chief Complaint: Seizures History of Present Illness: The patient is a 50 F history of PTSD, stroke, A. fib, seizure history, gastroparesis, neuropathies and prior kidney cancer. Per multiple prior surgeries including a brain aneurysm. Patient states that she h ad nausea vomiting today due to cramping in her back and legs did not think she kept her seizure medication down and sees x2. Denies other complaints. Denies any fever or headache. No trauma. Physical Examination: Well-appearing middle-aged female no acute distress. Initial blood pressure elevated 156/126. She is anxious and nervous. She does not look septic or toxic. She does not look dehydrated. HEENT exam unremarkable. Neck nontender no lymphadenopathy. Lungs clear to auscultation bilaterally. Heart regular rhythm no murmur. Abdomen soft nontender. Extremi ties moves all 4. Neurovascular intact. Calves are without edema or cords. Back nontender. Neurologically she is awake alert without focal motor deficits. Test Results: BMP shows no acute abnormality. Normal BUN, creatinine gap. Glucose 86. Emergency Department Course and Treatment: Patient treated with IV fluids for possible dehydration and muscle spasms. Toradol for pain. Screening labs being obtained. Repeat exam patient is doing well at 9:03 PM. She is anxious but otherwise unremarkable. She normally of her test results. She will be discharged home. Treatment Plan: Any fluids and rest. Continue her current medications including her seizure medication. Follow-up with your doctor. Disposition: Discharge Impression: Acute seizures History of seizure disorder With a history of PTSD This note was generated with [employer] dictation software. It may contain incorrect words, spelling, and punctuation that were not noted in review of the chart prior to signing ED Disposition - Plan for ED Patient: Referrals: Ari Sotomayor DO [Primary Care Provider] -
[2020-08-25] MEDS: 0.9% Normal Saline 1,000 ML 1000 ML IV (20:17)
[2020-08-25] MEDS: Ketorolac 30 MG/ML Syringe IV (20:18)
[2020-08-25 20:31] LABS: Anion Gap 8 (5-15); BUN 15 mg/dL (7-18); BUN/Creat Ratio 22.4 RATIO (10-20); Chloride 107 mmol/L (98-107); Creatinine, Serum 0.67 mg/dL (0.55-1.02); EST Glomerular Filtration Rate 98 mL/min (>60); Est Glom Filt Rate - Afr Amer 119 mL/min (>60); Estimated Creatinine Clearance 103.81 ml/min; Glucose 86 mg/dL (74-106); Potassium 4.5 mmol/L (3.5-5.1); Sodium Level 140 mmol/L (136-145)
--- NOTE | 2020-08-25 21:04 | ED.DEP ---
ED Disposition - Plan for ED Patient: Disposition: Home or Assisted Living Instructions: ED Seizure, Recurrent (Adult) Referrals: Ari Sotomayor DO [Primary Care Provider] - 3-5 Days if not improving Additional Instructions: Plenty of fluids and rest. Follow-up with your primary care physician. Continue your current medications. Return if feeling worse.
[2020-08-25 21:46] VITALS: BP 148/96; PULSE 100; RESP 16; O2SAT 98
== END 2020-08-25 21:47 | disposition home or self-care (01) ==
PROVIDERS: Emergency Provider Emergency Medicine; PCP Family Medicine
DX: G40.909 Epilepsy, unspecified, not intractable, without status epilepticus (principal); F43.10 Post-traumatic stress disorder, unspecified; I48.91 Unspecified atrial fibrillation; F41.9 Anxiety disorder, unspecified; M62.838 Other muscle spasm; Z72.0 Tobacco use; Z79.899 Other long term (current) drug therapy; Z86.73 Personal history of transient ischemic attack (TIA), and cerebral infarction without residual deficits
CPT/HCPCS: 80048; 96361; 96374; 99283; J7030; A4216

== ENCOUNTER → 2020-09-06 10:39 | Outpatient (CLI) | payer MEDICAID, SELFPAY ==
[2020-08-25 19:11] VITALS: BMI 29.5
[2020-09-06 11:53] LABS: Amphetamine Urine VISTA NEGATIVE (<1000 ng/mL); Barbiturate Urine VISTA NEGATIVE (< 200 ng/mL); Benzodiazepine Urine VISTA NEGATIVE (< 200 ng/mL); Cocaine Urine VISTA POSITIVE (< 300 ng/mL); Ecstacy Urine VISTA NEGATIVE (< 500 ng/mL); Methadone Urine VISTA NEGATIVE (< 300 ng/mL); PCP Urine VISTA NEGATIVE (< 25 ng/mL); THC Urine VISTA NEGATIVE (< 50 ng/mL); Vista UDS pH Range 5
== END ==
PROVIDERS: PCP Family Medicine; Referring Provider Anesthesiology Pain Medicine; Visit Provider Anesthesiology Pain Medicine
DX: F11.20 Opioid dependence, uncomplicated (principal)
CPT/HCPCS: 80307

== ENCOUNTER 2020-09-22 18:08 | Emergency (ER) | payer MEDICARE, MEDICAID, SELFPAY ==
[2020-09-22 18:09] VITALS: BP 126/88; PULSE 109; RESP 20; TEMP 36.7; O2SAT 95; BMI 28.8
[2020-09-22 18:12] VITALS: BP 126/88; PULSE 109; RESP 20; TEMP 36.7; O2SAT 95
[2020-09-22] MEDS: 0.9% Normal Saline 1,000 ML 1000 ML IV (19:08)
[2020-09-22] MEDS: Ondansetron 4 MG/2 ML Vial IV (19:09)
--- NOTE | 2020-09-22 19:20 | RAD_ITS ---
STUDY: X-RAY CHEST REASON FOR EXAM: Female, 50 years old. cough, shortness of breath TECHNIQUE: AP COMPARISON: 02/27/2020 FINDINGS: EKG leads project over the chest. The lungs are clear and expanded. There is no demonstrated pleural abnormality. Normal size heart. Normal mediastinum and kimani. Normal visualized pulmonary arteries. Normal visualized aortic arch and descending thoracic aorta. Mild scoliosis. Fusion hardware of the lower cervical spine. Normal visualized ribs, clavicles, and shoulders. There is no demonstrated abnormality of the visualized soft tissue structures of the upper abdomen. RAD/Chest 1 View (Portable) IMPRESSION: Stable, nonacute portable x-ray examination of the chest. Electronically Signed: Wilman Louis MD ([place]) at 19:39 EST , Service support ,
[2020-09-22 19:30] LABS: Absolute Lymphocyte Count 2.62 X10^3/uL (0.83-4.51); Absolute Neutrophil Count 4.3 X10^3/uL (2.0-7.7); Basophil# 0.04 X10^3/uL; Basophil% 0.5 % (0-1); Eosinophil# 0.09 X10^3/uL; Eosinophils% 1.2 % (0-5); Hematocrit 46.9 % (37-47); Hemoglobin 15.3 g/dL (12.0-15.0); Lymphocyte # 2.62 X10^3/ul (4.0); Lymphocyte % 34.5 % (19-41); Mean Corp Hgb Conc 32.6 g/dL (32-36); Mean Corpuscular Hgb 32.1 pg (27.0-32.0); Mean Corpuscular Volume 98.3 fL (81-99); Mean Platelet Vol. 9.6 fl (6.2-12.0); Monocyte# 0.54 X10^3/uL; Monocyte% 7.1 % (0-10); NRBC Flagged by Analyzer 0 % (0-5); Neutrophil # 4.28 X10^3/uL (2.7-7.7); Neutrophil % 56.4 % (47-70); Platelet Count 307 K/mm3 (150-450); RBC Distribution Width CV 12.1 % (11.6-14.6); RBC Distribution Width SD 44.4 fl (35.1-43.9); Red Blood Count 4.77 M/mm3 (4.2-5.4); White Blood Count 7.6 K/mm3 (4.4-11.0)
[2020-09-22 19:42] LABS: AST(SGOT) 20 U/L (15-37); Alanine Aminotransfer ALT/SGPT 32 U/L (13-56); Albumin, Serum 3.5 g/dL (3.2-5.0); Alkaline Phosphatase 153 U/L (45-117); Anion Gap 5 (5-15); BUN 8 mg/dL (7-18); BUN/Creat Ratio 11.8 RATIO (10-20); Calcium,Total 8.6 mg/dL (8.5-10.1); Chloride 110 mmol/L (98-107); Creatinine, Serum 0.68 mg/dL (0.55-1.02); EST Glomerular Filtration Rate 97 mL/min (>60); Est Glom Filt Rate - Afr Amer 117 mL/min (>60); Estimated Creatinine Clearance 102.29 ml/min; Globulin 3.5 g/dL (2.2-4.2); Glucose 89 mg/dL (74-106); Lipase 106 U/L (73-393); Potassium 4.1 mmol/L (3.5-5.1); Sodium Level 141 mmol/L (136-145)
[2020-09-22 20:08] VITALS: PULSE 88; RESP 18; O2SAT 96
--- NOTE | 2020-09-22 20:57 | ED.VISSUMM ---
- ER Visit Summary Date of Service: 09/22/20 Chief Complaint: Nausea, vomiting, diarrhea History of Present Illness: The patient is a 50 F who presents with nausea, vomiting, diarrhea for the past 4 days. Associated with sore throat, myalgias, dry cough, decreased taste and smell. Physical Examination: Afebrile and vital signs unremarkable except for heart rate of 109 and respiratory rate of 20. She appears uncomfortable but is not toxic or in distress. She is alert and oriented. Heart is slightly tachycardic but regular. Lungs are clear. Abdomen soft and nontender. Skin appears normal. Test Results: Hemoglobin 15.3, chloride 110, alkaline phosphatase 153, lipase normal, Covid negative. Chest x-ray showed nothing acute. Emergency Department Course and Treatment: Patient was treated with IV fluids and Zofran. No further vomiting. No diarrhea here. She is better on reevaluation. Her testing is all reassuring. She may have a false negative Covid test and we will maintain precautions. She will use Zofran as needed for nausea. [id number]-[id number] remedies for symptoms. Stay hydrated. Follow-up with primary care as needed or return if worse. Treatment Plan: As above Disposition: Discharge Impression: Nausea vomiting and diarrhea This note was generated with [employer] dictation software. It may contain incorrect words, spelling, and punctuation that were not noted in review of the chart prior to signing ED Disposition - Plan for ED Patient: Referrals: Ari Sotomayor DO [Primary Care Provider] -
[2020-09-22 20:59] VITALS: PULSE 83; RESP 18; O2SAT 98
--- NOTE | 2020-09-22 20:59 | ED.DEP ---
ED Disposition - Plan for ED Patient: Instructions: ED Vomiting (Adult) Prescriptions: Ondansetron [Zofran Odt] 4 mg PO Q8H PRN PRN #10 tab PRN Reason: Nausea Prescription Printed Referrals: Ari Sotomayor DO [Primary Care Provider] -
== END 2020-09-22 21:10 | disposition home or self-care (01) ==
LOC: ED 18:51
PROVIDERS: Emergency Provider Emergency Medicine; PCP Family Medicine
DX: R11.2 Nausea with vomiting, unspecified (principal); R19.7 Diarrhea, unspecified; J02.9 Acute pharyngitis, unspecified; M79.10 Myalgia, unspecified site; F17.200 Nicotine dependence, unspecified, uncomplicated; K21.9 Gastro-esophageal reflux disease without esophagitis
CPT/HCPCS: 71045; 80053; 83690; 85025; 87426; 96361; 96374; 99285; J7030; A4216; J2405

== ENCOUNTER 2020-12-26 16:52 | Emergency (ER) | payer MEDICARE, MEDICAID, SELFPAY ==
[2020-12-26 16:53] VITALS: BP 163/97; PULSE 99; RESP 15; TEMP 36; O2SAT 98; BMI 32.5
--- NOTE | 2020-12-26 17:30 | CT_ITS ---
STUDY: CT ABDOMEN AND PELVIS WITHOUT CONTRAST REASON FOR EXAM: Female, 50 years old. Kidney Stone RADIATION DOSAGE (If Supplied By Facility): CTDIvol = ( 15.98 ) mGy, DLP = ( 770.37 ) mGycm TECHNIQUE: Transaxial images were obtained from the dome of the diaphragm to the symphysis pubis without oral contrast, and without intravenous contrast. Sagittal and coronal images were reconstructed. Individualized dose optimization techniques were used for this CT. COMPARISON: 06/18/2020 FINDINGS: The visualized lung bases are unremarkable. The visualized portions of the heart are within normal limits. Liver is enlarged and fatty infiltrated without mass or bile duct dilatation.. Gallbladder has been removed surgically.. Normal spleen. Normal pancreas. Normal bilateral adrenal glands. Normal right kidney. Normal left kidney. There is a stimulator within the anterior abdominal wall with leads terminating adjacent to the left hepatic lobe Normal visualized stomach. Normal small intestine. Mild diverticular changes of colon without evidence for acute diverticulitis. No evidence for acute appendicitis.. Minor atherosclerotic changes of the aorta without evidence for aneurysm.. Normal inferior vena cava. Normal retroperitoneum. Incompletely distended thick-walled bladder likely of no significance. Uterus not visualized consistent with hysterectomy Normal abdominal wall. Postop change status post bilateral laminectomy and posterior fusion at L4-5 and L5-S1. CT/Abdomen/Pelvis without Cont IMPRESSION: Nonspecific fatty infiltrated liver. Status post cholecystectomy.. No evidence for renal calculus hydronephrosis or ureteral calculus at this time Minor diverticular disease of colon without evidence for acute diverticulitis Electronically Signed: Kunal Amezquita MD at 18:37 EDT , Service support ,
[2020-12-26 17:56] LABS: Bacteria 0 SEEN /hpf (None Seen); Mucous, Urine 0 SEEN /hpf (<or=2+); Red Blood Cells-Urine 0 SEEN /hpf (0-5); White Blood Cells 0 SEEN /hpf (0-5)
[2020-12-26 18:00] LABS: Color, Urine Yellow (Yellow); Glucose, Dipstick Normal (Normal); Ketone-Dipstick Negative (Negative); Leukocyte Esterase-Dipstick Negative /ul (Negative); Nitrite-Dipstick Negative (Negative); Occult Blood-Urine 250 /ul (Negative); Protein-Dipstick Negative (Negative); Specific Gravity, Urine 1.005 (1.002-1.030); Urine Bilirubin Dipstick Negative (Negative); Urine Clarity Clear (Clear); Urine Urobilinogen Normal (Normal)
[2020-12-26] MEDS: Morphine 4 MG/ML Syringe IV (18:02)
[2020-12-26] MEDS: 0.9% Normal Saline 1,000 ML 250 ML IV (18:02)
[2020-12-26] MEDS: Ondansetron 4 MG/2 ML Vial IV (18:02)
[2020-12-26 18:04] VITALS: BP 175/105; PULSE 102; RESP 22; TEMP 37; O2SAT 97
[2020-12-26 18:06] LABS: Squamous Epithelial Cells - UA 0-5 SEEN /hpf (5-10)
[2020-12-26 18:31] LABS: Absolute Neutrophil Count 3.6 X10^3/uL (2.0-7.7); Basophil# 0.05 X10^3/uL; Basophil% 0.7 % (0-1); Eosinophil# 0.08 X10^3/uL; Eosinophils% 1.2 % (0-5); Hematocrit 46.3 % (37-47); Hemoglobin 15.6 g/dL (12.0-15.0); Lymphocyte % 34.8 % (19-41); Mean Corp Hgb Conc 33.7 g/dL (32-36); Mean Corpuscular Hgb 31.9 pg (27.0-32.0); Mean Corpuscular Volume 94.7 fL (81-99); Mean Platelet Vol. 9.9 fl (6.2-12.0); Monocyte# 0.72 X10^3/uL; Monocyte% 10.4 % (0-10); NRBC Flagged by Analyzer 0 % (0-5); Neutrophil # 3.62 X10^3/uL (2.7-7.7); Neutrophil % 52.6 % (47-70); Platelet Count 337 K/mm3 (150-450); RBC Distribution Width CV 12.1 % (11.6-14.6); RBC Distribution Width SD 42.3 fl (35.1-43.9); Red Blood Count 4.89 M/mm3 (4.2-5.4); White Blood Count 6.9 K/mm3 (4.4-11.0)
[2020-12-26 18:38] LABS: Anion Gap 5 (5-15); BUN 12 mg/dL (7-18); BUN/Creat Ratio 19.1 RATIO (10-20); Calcium,Total 9.1 mg/dL (8.5-10.1); Chloride 109 mmol/L (98-107); Creatinine, Serum 0.63 mg/dL (0.55-1.02); EST Glomerular Filtration Rate 106 mL/min (>60); Est Glom Filt Rate - Afr Amer 128 mL/min (>60); Estimated Creatinine Clearance 110.41 ml/min; Glucose 91 mg/dL (74-106); Potassium 3.7 mmol/L (3.5-5.1); Sodium Level 139 mmol/L (136-145)
--- NOTE | 2020-12-26 19:02 | EX.ED.DYSGE1 ---
HPI History of Present Illness Chief Complaint: Flank Pain Informant: patient Onset/Context/Timing Onset: Today Context: Gradual Onset Timing: Continuous Quality: Shocking Location: Bilateral flanks, right greater than left Narrative Narrative: Patient presents with bilateral flank pain that began today. Patient states it is worse on the right. Patient states she gets these shocking sensations in her flanks. Patient states it is worse with standing and worse with urination. Patient states she has a history of kidney stones and feels like this is similar to prior kidney stones. Patient denies any dysuria or hematuria however. Patient admits to nausea but denies any vomiting. [facility] Medical History Asthma Brain aneurysm Chronic pain Former smoker GERD (gastroesophageal reflux disease) Kidney disease Kidney stones Migraines Rheumatoid arthritis Seizures Sleep apnea Home Medications fluticasone propionate 2 spray NASAL BID 09/30/16 [History Last Taken 06/21/19] lxixvmvq-oud-xyol-FA-lutein 1 tab PO DAILY 03/21/19 [History Last Taken 06/21/19] albuterol sulfate 1 - 2 puff INHALATION Q4H PRN PRN #1 inhaler 04/20/19 [Rx Last Taken 06/20/19] omeprazole 40 mg PO DAILY 05/31/19 [History Last Taken 06/21/19] gabapentin 300 mg PO TIDCM #60 cap 06/03/19 [Rx Last Taken 06/21/19] melatonin-pyridoxine HCl (B6) 1 tab PO QHS PRN 06/21/19 [History Last Taken 06/20/19] levetiracetam 1,500 mg PO BID 12/04/19 [History Last Taken Unknown] cyclobenzaprine 10 mg PO TID PRN 02/27/20 [History Last Taken Unknown] oxycodone-acetaminophen 1 tab PO Q4H PRN PRN 02/27/20 [History Last Taken Unknown] ondansetron 4 mg PO Q8H PRN PRN #10 tab 09/22/20 [Rx Last Taken Unknown] Allergy/AdvReac Type Severity Reaction Status Date / Time Penicillins Allergy Anaphylaxis Verified 09/22/20 18:12 propoxyphene napsylate Allergy Rash Verified 09/22/20 18:12 [From Darvocet-N 100] hydrocodone bitartrate AdvReac Itching Verified 09/22/20 18:12 [From Vicodin] venom-honey bee AdvReac Chest Verified 09/22/20 18:12 [bee venom (honey bee)] tightness PLASTIC TAPE Allergy blistering Uncoded 09/22/20 18:12 IV contrast AdvReac Vomiting Uncoded 09/22/20 18:12 Surgical History History of appendectomy History of cholecystectomy Social History Smoking Status: Former smoker ROS ROS ED Constitutional Constitutional ED: Denies chills or fever(s) Eyes Eyes: Denies blurry vision or change in vision ENT ENT ED: Denies rhinorrhea or sore throat Cardiovascular Cardiovascular: Denies chest pain or palpitations Respiratory/Chest Respiratory/Chest: Denies cough or dyspnea Gastrointestinal Gastrointestinal: Reports nausea Genitourinary Genitourinary ED: Denies dysuria or hematuria Musculoskeletal Musculoskeletal: Reports back pain; Denies neck pain Integumentary Denies abscess or rash Neurologic Neurologic: Denies headache(s) or weakness Allergic/Immunologic Allergic/Immunologic ED: Denies mouth swelling or urticaria EXAM Physical Exam Const Vital Signs: 12/26/20 16:53 12/26/20 16:59 12/26/20 18:04 Temperature 96.8 F L 98.6 F Temperature Source Temporal Temporal Pulse Rate 99 102 H Respiratory Rate 15 22 H Respiratory Effort Normal Respiratory Pattern Normal Blood Pressure 163/97 H 175/105 H Blood Pressure Mean 119 128 Pulse Ox 98 97 Oxygen Delivery Method Room Air Room Air Positive well nourished, well developed and obese General Appearance ED: well developed Nutritional Appearance: obese HEENT Reports moist mucous membranes Neck supple and no JVD Resp normal respiratory effort and clear to auscultation bilaterally Cardio regular rate and regular rhythm GI normal to inspection, nondistended, normoactive bowel sounds and non-tender Palpation: soft Back/Spine General Back: CVA tenderness bilateral Neuro oriented x3, CN's II-XII intact bilaterally and no sensory deficits noted Sensorium / Orientation: alert Motor Exam: strength 5/5 throughout MDM MDM MDM Narrative Medical decision making narrative: Patient was given IV fluids, morphine, and Zofran. CBC and basic metabolic profile within normal limits. Urinalysis was normal. CT scan of the abdomen pelvis was obtained. There are no acute findings noted. There is no obstructive uropathy. Patient was advised of her findings. Patient was feeling better on reevaluation. Patient was instructed to follow-up with her primary care physician in 5 to 7 days. Patient understood and was agreeable with the plan. All questions were answered. Lab Data Attestation: I reviewed the patient's lab results. Labs: Laboratory Results - last 24 hr 12/26/20 12/26/20 12/26/20 17:49 18:05 18:05 WBC 6.9 RBC 4.89 Hgb 15.6 H Hct 46.3 MCV 94.7 MCH 31.9 MCHC 33.7 RDW Std Deviation 42.3 RDW Coeff of Bere 12.1 Plt Count 337 MPV 9.9 Immature Gran % (Auto) 0.300 Neut % (Auto) 52.6 Lymph % (Auto) 34.8 [place] % (Auto) 10.4 H Eos % (Auto) 1.2 Baso % (Auto) 0.7 Absolute Neuts (auto) 3.6 Absolute Lymphs (auto) 2.40 Nucleated RBC % 0 Sodium 139 Potassium 3.7 Chloride 109 H Carbon Dioxide 25.0 Anion Gap 5 BUN 12 Creatinine 0.63 Estim Creat Clear Calc 110.41 Est GFR (MDRD) Af Amer 128 Est GFR (MDRD) Non-Af 106 BUN/Creatinine Ratio 19.1 Glucose 91 Calcium 9.1 Urine Color Yellow Urine Clarity Clear Urine pH 7.0 Ur Specific [place] 1.005 Urine Protein Negative Urine Glucose (UA) Normal Urine Ketones Negative Urine Occult Blood 250 H Urine Nitrite Negative Urine Bilirubin Negative Urine Urobilinogen Normal Ur Leukocyte Esterase Negative Urine RBC 0 SEEN Urine WBC 0 SEEN Ur Squamous Epith Cells 0-5 SEEN Urine Bacteria 0 SEEN Urine Mucus 0 SEEN Radiography Diagnostic Testing: Radiology Impression Abdomen/Pelvis CT 12/26/20 17:30 IMPRESSION: Nonspecific fatty infiltrated liver. Status post cholecystectomy.. No evidence for renal calculus hydronephrosis or ureteral calculus at this time Minor diverticular disease of colon without evidence for acute diverticulitis Electronically Signed: Kunal Amezquita MD at 18:37 EDT , Service support , Discharge Plan Triage Chief Complaint: Flank Pain ED Provider: Alfred Parkinson Dx/Rx/DC Orders Clinical Impression: Bilateral flank pain Instructions: ED Flank Pain, Uncertain Cause Prescriptions: No Action fluticasone propionate 1 SPRAY spray,suspension 2 spray NASAL BID RF: 0 mopadfht-wmg-brqm-FA-lutein 1 EACH tablet 1 tab PO DAILY RF: 0 albuterol sulfate 1 INHALER inhaler 1 - 2 puff inhalation Q4H PRN PRN (Reason: Wheezing) Qty: 1 RF: 0 omeprazole 20 MG capsule,delayed release(DR/EC) 40 mg PO DAILY RF: 0 gabapentin 300 MG capsule 300 mg PO TIDCM Qty: 60 RF: 0 melatonin-pyridoxine HCl (B6) 1 EACH tablet,ext release multiphase 1 tab PO QHS PRN (Reason: Sleep) RF: 0 levetiracetam 750 MG tablet 1,500 mg PO BID RF: 0 cyclobenzaprine 10 MG tablet 10 mg PO TID PRN (Reason: Muscle Spasm) RF: 0 oxycodone-acetaminophen 1 TABLET tablet 1 tab PO Q4H PRN PRN (Reason: Pain Score 1-10/10) RF: 0 ondansetron 4 MG tablet 4 mg PO Q8H PRN PRN (Reason: Nausea) Qty: 10 RF: 0 Primary Care Provider: Ari Sotomayor Referrals: Ari Sotomayor DO [Primary Care Provider] - 3-5 Days Disposition Disposition: Home, self care
[2020-12-26 19:14] VITALS: RESP 18
== END 2020-12-26 19:15 | disposition home or self-care (01) ==
PROVIDERS: Emergency Provider Emergency Medicine; PCP Family Medicine
DX: R10.9 Unspecified abdominal pain (principal); K21.9 Gastro-esophageal reflux disease without esophagitis; M06.9 Rheumatoid arthritis, unspecified; E66.9 Obesity, unspecified; Z68.32 Body mass index [BMI] 32.0-32.9, adult; Z79.899 Other long term (current) drug therapy; Z87.442 Personal history of urinary calculi; Z87.891 Personal history of nicotine dependence
CPT/HCPCS: 74176; 80048; 81001; 85025; 96361; 96374; 96375; 99285; J7030; A4216; J2405

== ENCOUNTER 2021-01-31 20:21 | Emergency (ER) | payer MEDICARE, MEDICAID, SELFPAY ==
[2021-01-31 20:21] VITALS: BP 132/71; PULSE 105; RESP 18; TEMP 36.2; O2SAT 96; BMI 31.7
--- NOTE | 2021-01-31 20:37 | RAD_ITS ---
STUDY: X-RAY - RIGHT KNEE REASON FOR EXAM: Female, 51 years old. injury/pain TECHNIQUE: 4 view(s) of the knee. COMPARISON: None. FINDINGS: Normal visualized distal femur. Normal visualized proximal tibia and fibula. Normal proximal tibiofibular articulation. There is no demonstrated fracture. Normal medial femorotibial compartment. Normal lateral femorotibial compartment. Normal patellofemoral articulation. There is no demonstrated joint effusion. The soft tissue structures are unremarkable. RAD/Knee 4 or More Views IMPRESSION: Normal x-ray examination of the knee. Electronically Signed: Kerri Wolfe MD at 22:26 EDT , Service support ,
--- NOTE | 2021-01-31 20:38 | EDS_ITS ---
HPI History of Present Illness Chief Complaint: Lower Extremity Injury Detail of Chief Complaint: Right knee pain that started initially a week ago Informant: patient Onset/Context/Timing Current Severity: 06/02 Maximum Severity: 06/02 Narrative Narrative: Patient presents to the emergency department complaint of right knee pain that started a week ago after she tried to catch her mother while she was stumbling with a walker. Patient went to her primary care physician's office and was ordered outpatient x-rays and a CAT scan of her knee. 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 Patient states tonight that she was in the kitchen she turned to walk away and her knee buckled and twisted awkwardly causing a sharp pain to go through her knee and now cannot bear any weight. Patient has become nauseated and has vomited several times because of the pain. Patient rates her pain a 10 out of 10. [facility] Medical History Asthma Brain aneurysm Chronic pain Former smoker GERD (gastroesophageal reflux disease) Kidney disease Kidney stones Migraines Rheumatoid arthritis Seizures Sleep apnea Home Medications fluticasone propionate 2 spray NASAL BID 09/30/16 [History Last Taken 06/21/19] zqxgawnf-kox-lfag-FA-lutein 1 tab PO DAILY 03/21/19 [History Last Taken 06/21/19] albuterol sulfate 1 - 2 puff INHALATION Q4H PRN PRN #1 inhaler 04/20/19 [Rx Last Taken 06/20/19] omeprazole 40 mg PO DAILY 05/31/19 [History Last Taken 06/21/19] gabapentin 300 mg PO TIDCM #60 cap 06/03/19 [Rx Last Taken 06/21/19] melatonin-pyridoxine HCl (B6) 1 tab PO QHS PRN 06/21/19 [History Last Taken 06/20/19] levetiracetam 1,500 mg PO BID 12/04/19 [History Last Taken Unknown] cyclobenzaprine 10 mg PO TID PRN 02/27/20 [History Last Taken Unknown] oxycodone-acetaminophen 1 tab PO Q4H PRN PRN 02/27/20 [History Last Taken Unknown] ondansetron 4 mg PO Q8H PRN PRN #10 tab 09/22/20 [Rx Last Taken Unknown] oxycodone-acetaminophen 1 tab PO Q6H PRN PRN 3 Days #12 tablet 01/31/21 [Rx Last Taken Unknown] Allergy/AdvReac Type Severity Reaction Status Date / Time Penicillins Allergy Anaphylaxis Verified 01/31/21 20:25 propoxyphene napsylate Allergy Rash Verified 01/31/21 20:25 [From Darvocet-N 100] hydrocodone bitartrate AdvReac Itching Verified 01/31/21 20:25 [From Vicodin] venom-honey bee AdvReac Chest Verified 01/31/21 20:25 [bee venom (honey bee)] tightness PLASTIC TAPE Allergy blistering Uncoded 01/31/21 20:25 IV contrast AdvReac Vomiting Uncoded 01/31/21 20:25 Surgical History History of appendectomy History of cholecystectomy Social History Smoking Status: Former smoker ROS ROS ED Constitutional Constitutional ED: Reports systems reviewed and no addt'l complaints, except as documented; Denies body ache(s), change in weight or chills Eyes Eyes: Denies acute decrease in peripheral vision, change in vision, double vision or loss of vision ENT ENT ED: Reports none; Denies ear pain, lip swelling, loss taste/smell, neck pain, otalgia or sore throat Cardiovascular Cardiovascular: Reports none; Denies abdominal pain, chest pain with activity, leg edema, lightheadedness, palpitations, rapid heart rate or syncope Respiratory/Chest Respiratory/Chest: Reports none; Denies change in mental status, dry cough, dyspnea, hemoptysis, shortness of breath at rest or shortness of breath with exertion Gastrointestinal Gastrointestinal: Reports none; Denies abdominal pain, change in stool character, diarrhea, hematemesis, hematochezia, melena, rectal bleeding or vomiting Genitourinary Genitourinary ED: Reports none; Denies abdominal discomfort, anuria, dysuria, genital pain or polyuria Musculoskeletal Musculoskeletal: Reports none and other Details: Right knee pain ; Denies arthralgias, back pain, difficulty walking, extremity pain, muscle weakness or myalgias Integumentary Reports none; Denies abscess or rash Neurologic Neurologic: Reports none; Denies abnormal gait, confusion, focal weakness, frequent falls, headache(s), loss of vision, numbness, paresthesias, radicular pain, vertigo or weakness Psychiatric Psychiatric: Reports systems reviewed and no addt'l complaints, except as documented and none; Denies behavioral changes, confusion, difficulty concentrating, hallucinations, suicidal ideation, tactile hallucinations or visual hallucinations Endocrine Endocrinology: Denies none, cold intolerance, excessive sweating, fatigue or heat intolerance Hematologic/Lymphatic Hematologic/Lymphatic: Reports none; Denies anemia, easy bleeding or easy bruising Allergic/Immunologic Allergic/Immunologic ED: Denies as per HPI, none, lip swelling, mouth swelling, throat swelling, tongue swelling or hives EXAM Physical Exam Const Vital Signs: 01/31/21 20:21 Temperature 97.1 F L Temperature Source Temporal Pulse Rate 105 H Respiratory Rate 18 Blood Pressure 132/71 H Blood Pressure Mean 91 Pulse Ox 96 Oxygen Delivery Method Room Air Positive well nourished and well developed General Appearance ED: well developed and NAD HEENT Reports TM's clear and moist mucous membranes normocephalic and atraumatic; Negative for trauma or tenderness Tympanic Membrane ED: Yes TM's clear Eyes PERRL and EOMs intact bilaterally General Eye ED: Negative for pale conjunctiva or scleral icterus Neck no lymphadenopathy, supple and no JVD General: Negative for tenderness Chest Wall inspection of chest normal and palpation of chest normal Chest: Negative for tenderness Resp normal respiratory effort and clear to auscultation bilaterally Effort and Inspection: Negative for respiratory distress or pain with movement Auscultation: Negative for rhonchi, wheezes or diminished lung sounds Cardio regular rate, regular rhythm, S1 normal heart sound, S2 normal heart sound and no murmurs Peripheral Pulses: pulses 2+ throughout GI normal to inspection, nondistended, normoactive bowel sounds, soft to palpation, non-tender, non-distended and no masses Back/Spine no CVA tenderness and no thoracic nor lumbar tenderness Extremity normal to inspection Extremity Narrative: Right knee-no effusion noted. Patient has limited range of motion in flexion extension secondary to pain. She has a hard time completely extending the knee. She complains of pain over the tendon of the hamstring/biceps Femoris tendon. General Extremety ED: Negative for edema General Extremity: Negative for edema Neuro oriented x3, CN's II-XII intact bilaterally, no sensory deficits noted and gait normal Sensorium / Orientation: awake, alert, oriented to person, oriented to place and oriented to time Motor Exam: strength 5/5 throughout and strength abnormal Psych mental status grossly normal Skin no rashes or lesions noted and no wounds MDM MDM MDM Narrative Medical decision making narrative: And given crutches. She will be given a prescription for [place] for pain. Radiography Diagnostic Testin view x-rays of the right knee obtained on my interpretation showed no fractures or dislocations. Official radiology report will be pending. Discharge Plan Triage Chief Complaint: Lower Extremity Injury ED Provider: Otis Smith Dx/Rx/DC Orders Clinical Impression: Right knee sprain Instructions: ED Meniscal Injury Knee Poss, ED Knee Sprain Prescriptions: New oxycodone-acetaminophen [oxycodone-acetaminophen] 1 TABLET tablet 1 tab PO Q6H PRN PRN (Reason: Pain) 3 Days Qty: 12 RF: 0 No Action fluticasone propionate 1 SPRAY spray,suspension 2 spray NASAL BID RF: 0 byarovjd-vtz-ypzh-FA-lutein 1 EACH tablet 1 tab PO DAILY RF: 0 albuterol sulfate 1 INHALER inhaler 1 - 2 puff inhalation Q4H PRN PRN (Reason: Wheezing) Qty: 1 RF: 0 omeprazole 20 MG capsule,delayed release(DR/EC) 40 mg PO DAILY RF: 0 gabapentin 300 MG capsule 300 mg PO TIDCM Qty: 60 RF: 0 melatonin-pyridoxine HCl (B6) 1 EACH tablet,ext release multiphase 1 tab PO QHS PRN (Reason: Sleep) RF: 0 levetiracetam 750 MG tablet 1,500 mg PO BID RF: 0 cyclobenzaprine 10 MG tablet 10 mg PO TID PRN (Reason: Muscle Spasm) RF: 0 oxycodone-acetaminophen 1 TABLET tablet 1 tab PO Q4H PRN PRN (Reason: Pain Score 1-10/10) RF: 0 ondansetron 4 MG tablet 4 mg PO Q8H PRN PRN (Reason: Nausea) Qty: 10 RF: 0 Primary Care Provider: Ari Sotomayor Referrals: Dawit Pandey DO [STAFF PHYSICIAN] - 3-5 Days Fracasso,Ari, DO [Primary Care Provider] - Disposition Disposition: Home, self care
[2021-01-31] MEDS: Ondansetron 4 MG/2 ML Vial IM (20:48)
[2021-01-31] MEDS: Morphine 4 MG/ML Syringe IM (20:48)
--- NOTE | 2021-01-31 22:21 | ED.RN ---
PHARMACY UNABLE TO FILL MEDS TO BED RX FOR PERCOCET. PHARMACIST STATES PT HAD 84 PERCOCET TABLETS FILLED ON 01/24/2021. RX SHREDDED PER ED MD. PT UPDATED.
== END 2021-01-31 22:22 | disposition home or self-care (01) ==
PROVIDERS: Emergency Provider Emergency Medicine; PCP Family Medicine
DX: S83.91XA Sprain of unspecified site of right knee, initial encounter (principal); Z95.0 Presence of cardiac pacemaker; Z87.891 Personal history of nicotine dependence; X58.XXXA Exposure to other specified factors, initial encounter
CPT/HCPCS: 73564; 96372; 99284; J2405

== ENCOUNTER 2021-06-30 17:47 | Emergency (ER) | payer MEDICARE, MEDICAID, SELFPAY ==
[2021-06-30 17:47] VITALS: BP 143/87; PULSE 105; RESP 16; TEMP 36.2; O2SAT 97; BMI 30.2
[2021-06-30] MEDS: Clindamycin HCl 150 MG Capsule 300 MG PO (18:25)
[2021-06-30] MEDS: Naproxen 250 MG Tablet 500 MG PO (18:25)
--- NOTE | 2021-06-30 19:15 | EDS_ITS ---
HPI History of Present Illness Chief Complaint: Dental Informant: patient Onset/Context/Timing Onset: Today Context: Sudden Onset Timing: Continuous Quality: Sharp Location: Upper teeth Worsened by: Talking, chewing Relieved by: - (Nothing) Associated Symptoms Assocated Symptom - Dental: cold sensitivity and hot sensitivity; Negative for fever, jaw swelling or face swelling Narrative Narrative: Patient presents with dental pain that began today. Patient states she bit into a caramel apple and broke 3 of her upper teeth off. Patient states the pain has been constant for the past hour. Patient denies any bleeding. Patient did not bring the teeth with her. Patient denies any difficulty breathing or difficulty swallowing. Patient states the pain is worse when air comes across her teeth. Patient denies any jaw swelling or facial swelling. [facility] Medical History Asthma Brain aneurysm Chronic pain Former smoker GERD (gastroesophageal reflux disease) Kidney disease Kidney stones Migraines Rheumatoid arthritis Seizures Sleep apnea Home Medications fluticasone propionate 2 spray NASAL BID 09/30/16 [History Last Taken 06/21/19] ujjkyvws-rod-irgt-FA-lutein 1 tab PO DAILY 03/21/19 [History Last Taken 06/21/19] albuterol sulfate 1 - 2 puff INHALATION Q4H PRN PRN #1 inhaler 04/20/19 [Rx Last Taken 06/20/19] omeprazole 40 mg PO DAILY 05/31/19 [History Last Taken 06/21/19] gabapentin 300 mg PO TIDCM #60 cap 06/03/19 [Rx Last Taken 06/21/19] melatonin-pyridoxine HCl (B6) 1 tab PO QHS PRN 06/21/19 [History Last Taken 06/20/19] levetiracetam 1,500 mg PO BID 12/04/19 [History Last Taken Unknown] cyclobenzaprine 10 mg PO TID PRN 02/27/20 [History Last Taken Unknown] oxycodone-acetaminophen 1 tab PO Q4H PRN PRN 02/27/20 [History Last Taken Unknown] ondansetron 4 mg PO Q8H PRN PRN #10 tab 09/22/20 [Rx Last Taken Unknown] oxycodone-acetaminophen 1 tab PO Q6H PRN PRN 3 Days #12 tablet 01/31/21 [Rx Last Taken Unknown] clindamycin HCl [Cleocin HCl] 300 mg PO Q6H #40 capsule 06/30/21 [Rx Last Taken Unknown] Allergy/AdvReac Type Severity Reaction Status Date / Time Penicillins Allergy Anaphylaxis Verified 06/30/21 17:49 propoxyphene napsylate Allergy Rash Verified 06/30/21 17:49 [From Darvocet-N 100] hydrocodone bitartrate AdvReac Itching Verified 06/30/21 17:49 [From Vicodin] venom-honey bee AdvReac Chest Verified 06/30/21 17:49 [bee venom (honey bee)] tightness PLASTIC TAPE Allergy blistering Uncoded 06/30/21 17:49 IV contrast AdvReac Vomiting Uncoded 06/30/21 17:49 Surgical History History of appendectomy History of cholecystectomy Social History Smoking Status: Former smoker ROS ROS ED Constitutional Constitutional ED: Denies chills or fever(s) Eyes Eyes: Denies blurry vision or change in vision ENT ENT ED: Denies rhinorrhea or sore throat Cardiovascular Cardiovascular: Denies chest pain or palpitations Respiratory/Chest Respiratory/Chest: Denies cough or dyspnea Gastrointestinal Gastrointestinal: Denies nausea or vomiting Genitourinary Genitourinary ED: Denies dysuria or hematuria Musculoskeletal Musculoskeletal: Denies back pain or neck pain Integumentary Denies abscess or rash Neurologic Neurologic: Denies headache(s) or weakness Allergic/Immunologic Allergic/Immunologic ED: Denies mouth swelling or urticaria EXAM Physical Exam Const Vital Signs: 06/30/21 17:47 Temperature 97.2 F L Temperature Source Temporal Pulse Rate 105 H Respiratory Rate 16 Blood Pressure 143/87 H Blood Pressure Mean 105 Pulse Ox 97 Oxygen Delivery Method Room Air Positive well nourished and well developed General Appearance ED: well developed HEENT HEENT Narrative: There are 3 class III dental fractures over the upper incisors (#7, #8, and #10). There is no bleeding. There is some mild gingival edema over these teeth. There is no sublingual edema. There is no evidence of Lux's angina. Mouth ED: Yes oral and palatal mucosa normal Mouth: oral and palatal mucosa normal Teeth and Gingiva: poor dentition Throat: posterior oropharynx normal Neck no lymphadenopathy, supple and no JVD General: Negative for anterior neck swelling or submandibular swelling Lymph Lymphatic: no lymphadenopathy noted Neuro oriented x3, CN's II-XII intact bilaterally, moves all extremities, no focal motor deficits and no sensory deficits noted Sensorium / Orientation: alert Psych mental status grossly normal MDM MDM MDM Narrative Medical decision making narrative: [place] temporary cavity filling was placed over the teeth. Patient tolerated the procedure well. Patient was given a dose of clindamycin here. Patient was given a prescription for clindamycin. Patient was instructed to follow-up with her dentist in 3 to 5 days. Patient understood and was agreeable with the plan. All questions were answered. Discharge Plan Triage Chief Complaint: Dental ED Provider: Alfred Parkinson Dx/Rx/DC Orders Clinical Impression: Dental caries into pulp Instructions: ED Dental Pain Prescriptions: New clindamycin HCl [Cleocin HCl] 300 MG capsule 300 mg PO Q6H Qty: 40 RF: 0 No Action fluticasone propionate 1 SPRAY spray,suspension 2 spray NASAL BID RF: 0 vhubloqm-tlr-luvc-FA-lutein 1 EACH tablet 1 tab PO DAILY RF: 0 albuterol sulfate 1 INHALER inhaler 1 - 2 puff inhalation Q4H PRN PRN (Reason: Wheezing) Qty: 1 RF: 0 omeprazole 20 MG capsule,delayed release(DR/EC) 40 mg PO DAILY RF: 0 gabapentin 300 MG capsule 300 mg PO TIDCM Qty: 60 RF: 0 melatonin-pyridoxine HCl (B6) 1 EACH tablet,ext release multiphase 1 tab PO QHS PRN (Reason: Sleep) RF: 0 levetiracetam 750 MG tablet 1,500 mg PO BID RF: 0 cyclobenzaprine 10 MG tablet 10 mg PO TID PRN (Reason: Muscle Spasm) RF: 0 oxycodone-acetaminophen 1 TABLET tablet 1 tab PO Q4H PRN PRN (Reason: Pain Score 1-10/10) RF: 0 ondansetron 4 MG tablet 4 mg PO Q8H PRN PRN (Reason: Nausea) Qty: 10 RF: 0 oxycodone-acetaminophen [oxycodone-acetaminophen] 1 TABLET tablet 1 tab PO Q6H PRN PRN (Reason: Pain) 3 Days Qty: 12 RF: 0 Primary Care Provider: Ari Sotomayor Referrals: Ari Sotomayor, [Primary Care Provider] - 3-5 Days Dentist,Your [STAFF PHYSICIAN] - 3-5 Days Disposition Disposition: Home, Self Care
[2021-06-30 19:26] VITALS: BP 142/79; PULSE 82; RESP 15; O2SAT 97
== END 2021-06-30 19:27 | disposition home or self-care (01) ==
PROVIDERS: Emergency Provider Emergency Medicine; PCP Family Medicine
DX: K02.63 Dental caries on smooth surface penetrating into pulp (principal); K21.9 Gastro-esophageal reflux disease without esophagitis; M06.9 Rheumatoid arthritis, unspecified; J45.909 Unspecified asthma, uncomplicated; G40.909 Epilepsy, unspecified, not intractable, without status epilepticus; Z79.899 Other long term (current) drug therapy; Z87.891 Personal history of nicotine dependence
CPT/HCPCS: 99283

== ENCOUNTER 2021-07-21 14:09 | Emergency (ER) | payer MEDICARE, MEDICAID, SELFPAY ==
[2021-07-21 14:10] VITALS: BP 168/97; PULSE 107; RESP 20; TEMP 36.6; O2SAT 98; BMI 29.5
--- NOTE | 2021-07-21 14:42 | EKG12_ITS ---
Test Reason : CP Blood Pressure : / mmHG Vent. Rate : 115 BPM Atrial Rate : 115 BPM P-R Int : 104 ms QRS Dur : 100 ms QT Int : 448 ms P-R-T Axes : 000 035 066 degrees QTc Int : 619 ms Suspect unspecified pacemaker failure Sinus tachycardia with short CA Nonspecific ST and T wave abnormality Abnormal ECG Confirmed by TRACY RICHARDSON, ANISA ([id number]), brands editor MARQUIS AVILA ([id number]) on 07/23/2021 9:14:27 AM Referred By: STEPHANY Confirmed By:ANISA MOLINA MD
--- NOTE | 2021-07-21 14:50 | ED.VIS.CHEST ---
HPI History of Present Illness Chief Complaint: Chest Pain Informant: patient Onset/Context/Timing Onset: Yesterday Activity at onset: gradual Timing: Continuous Quality: Positive for Sharp Location: Left Chest Current Severity: Severe Maximum Severity: Severe Worsened By: Breathing Relieved By: Nothing Associated Symptoms: Positive for Nausea, Vomiting, Dyspnea, Cough and Fever; Negative for Diaphoresis, Lightheadedness and Palpitations Narrative Narrative: Patient is on day 4 of COVID-19, she states multiple family members in the house have it, she was previously vaccinated. She states yesterday her left lateral chest started hurting, it is much worse today and she has been dyspneic. Separately she has been having vomiting and diarrhea, fevers, chills, body aches, fatigue. [facility] Medical History Asthma Brain aneurysm Chronic pain Former smoker GERD (gastroesophageal reflux disease) Kidney disease Kidney stones Migraines Rheumatoid arthritis Seizures Sleep apnea Home Medications fluticasone propionate 2 spray NASAL BID 09/30/16 [History Last Taken 06/21/19] vvolgkot-ruh-ijiz-FA-lutein 1 tab PO DAILY 03/21/19 [History Last Taken 06/21/19] albuterol sulfate 1 - 2 puff INHALATION Q4H PRN PRN #1 inhaler 04/20/19 [Rx Last Taken 06/20/19] omeprazole 40 mg PO DAILY 05/31/19 [History Last Taken 06/21/19] gabapentin 300 mg PO TIDCM #60 cap 06/03/19 [Rx Last Taken 06/21/19] melatonin-pyridoxine HCl (B6) 1 tab PO QHS PRN 06/21/19 [History Last Taken 06/20/19] levetiracetam 1,500 mg PO BID 12/04/19 [History Last Taken Unknown] cyclobenzaprine 10 mg PO TID PRN 02/27/20 [History Last Taken Unknown] oxycodone-acetaminophen 1 tab PO Q4H PRN PRN 02/27/20 [History Last Taken Unknown] ondansetron 4 mg PO Q8H PRN PRN #10 tab 09/22/20 [Rx Last Taken Unknown] oxycodone-acetaminophen 1 tab PO Q6H PRN PRN 3 Days #12 tablet 01/31/21 [Rx Last Taken Unknown] clindamycin HCl [Cleocin HCl] 300 mg PO Q6H #40 capsule 06/30/21 [Rx Last Taken Unknown] metoclopramide HCl 10 mg PO Q6H PRN #20 tab 07/21/21 [Rx Last Taken Unknown] Allergy/AdvReac Type Severity Reaction Status Date / Time Penicillins Allergy Anaphylaxis Verified 07/21/21 14:12 propoxyphene napsylate Allergy Rash Verified 07/21/21 14:12 [From Darvocet-N 100] hydrocodone bitartrate AdvReac Itching Verified 07/21/21 14:12 [From Vicodin] venom-honey bee AdvReac Chest Verified 07/21/21 14:12 [bee venom (honey bee)] tightness PLASTIC TAPE Allergy blistering Uncoded 07/21/21 14:12 IV contrast AdvReac Vomiting Uncoded 07/21/21 14:12 Surgical History History of appendectomy History of cholecystectomy Social History Smoking Status: Former smoker ROS ROS ED Constitutional Constitutional ED: Reports body ache(s), chills, fatigue, fever(s), headache(s) and malaise Eyes Eyes: Denies change in vision or diplopia ENT ENT ED: Denies rhinorrhea or sore throat Cardiovascular Cardiovascular: Reports chest pain; Denies palpitations Respiratory/Chest Respiratory/Chest: Reports cough, dyspnea and dyspnea on exertion Gastrointestinal Gastrointestinal: Reports diarrhea, nausea and vomiting; Denies abdominal pain Genitourinary Genitourinary ED: Denies dysuria or hematuria Musculoskeletal Musculoskeletal: Denies back pain or neck pain Integumentary Denies abscess or rash Neurologic Neurologic: Reports headache(s); Denies paresthesias or weakness Psychiatric Psychiatric: Denies anxiety or suicidal thoughts EXAM Physical Exam Const Vital Signs: 07/21/21 14:10 07/21/21 14:31 07/21/21 16:47 Temperature 98 F Temperature Source Temporal Pulse Rate 107 H 102 H Respiratory Rate 20 H 18 Respiratory Effort Short of Breath Blood Pressure 168/97 H 136/81 H Blood Pressure Mean 120 99 Pulse Ox 98 94 Oxygen Delivery Method Room Air Room Air Positive well nourished and well developed Constitutional Narrative: Malaised-appearing, mild painful distress, tearful General Appearance ED: well developed and NAD HEENT Reports moist mucous membranes normocephalic and atraumatic Eyes PERRL and EOMs intact bilaterally Neck full ROM and supple Chest Wall inspection of chest normal Chest Narrative: No crepitance, trachea midline Chest: Negative for tenderness Resp normal air movement and no retractions Resp Narrative: Few rales at bases, otherwise clear. Patient tachypneic no respiratory distress. Cardio regular rate, regular rhythm and no murmurs Rate: tachycardic GI non-tender and non-distended Auscultation: normoactive bowel sounds Palpation: soft Back/Spine no CVA tenderness General Back: other FROM Extremity normal to inspection and no calf tenderness General Extremety ED: Negative for edema, pulses abnormal or tenderness General Extremity: Negative for edema or pulses abnormal Neuro oriented x3, CN's II-XII intact bilaterally and no sensory deficits noted Sensorium / Orientation: awake and alert Motor Exam: strength 5/5 throughout Skin no rashes or lesions noted and no wounds MDM MDM MDM Narrative Medical decision making narrative: X-ray shows bilateral Covid infiltrates, her D-dimer surprisingly is well within normal limits ruling out acute pulmonary embolus in context. Patient was treated with morphine and Zofran, this helped her symptoms. She was ambulatory without hypoxemia. She wanted us to check for C. difficile, which I doubt she has but I was happy to send that since she provided some diarrhea here, I think it is more likely related to COVID-19. We gave her some IV fluids to help hydrate her, and at this time recommend continued supportive care and monitoring pulse oximetry at home. With her history of paroxysmal atrial fibrillation and prior CVA/aneurysm coiling, it is unknown if she meets criteria for monoclonal antibody infusion therapy, but she will be referred so that after the weekend they can sort that out contact the patient as needed. Prior to discharge I asked the patient where she had a Covid test for the monoclonal antibody referral line, she states it was a home test that was positive. I will send a test here to ensure that she has a unofficial positive test for the monoclonal antibody treatment requirements. Lab Data Attestation: I reviewed the patient's lab results. Labs: Laboratory Results - last 24 hr 07/21/21 07/21/21 07/21/21 14:30 14:30 14:30 WBC 7.9 RBC 5.27 Hgb 17.1 H Hct 50.7 H MCV 96.2 MCH 32.4 H MCHC 33.7 RDW Std Deviation 47.1 H RDW Coeff of Bere 13.2 Plt Count 245 MPV 10.1 Immature Gran % (Auto) 0.400 Neut % (Auto) 70.4 H Lymph % (Auto) 23.1 [place] % (Auto) 5.6 Eos % (Auto) 0.1 Baso % (Auto) 0.4 Absolute Neuts (auto) 5.6 Absolute Lymphs (auto) 1.83 Nucleated RBC % 0 D-Dimer Quant (PE/DVT) 0.33 Sodium 139 Potassium 3.2 L Chloride 107 Carbon Dioxide 21.0 Anion Gap 11 BUN 16 Creatinine 0.88 Estim Creat Clear Calc 78.15 Est GFR (MDRD) Af Amer 86 Est GFR (MDRD) Non-Af 71 BUN/Creatinine Ratio 18.1 Glucose 138 H Calcium 8.8 Troponin I High Sens 3 Radiography Diagnostic Testing: Clinical Impression(s) from Imaging Studies Chest X-Ray 07/21/21 15:30 IMPRESSION: Bilateral Covid pneumonia. Electronically Signed: Lacie Li MD at 16:00 EST Tel , Service support , EKG Initial EKG: Attestation: I personally reviewed and interpreted this EKG as follows: Interpretation: No Acute Injury Pattern, Sinus Tachycardia and Non-Specific ST Changes (diffusely) Discharge Plan Triage Chief Complaint: Chest Pain ED Provider: Kenny Kaye Dx/Rx/DC Orders Clinical Impression: Pneumonia due to COVID-19 virus, Pleurisy Instructions: Coronavirus Disease 2019 (COVID-19): Caring for Yourself or Others Prescriptions: New metoclopramide HCl [metoclopramide HCl] 10 MG tablet 10 mg PO Q6H PRN (Reason: nausea and vomiting) Qty: 20 RF: 0 No Action fluticasone propionate 1 SPRAY spray,suspension 2 spray NASAL BID RF: 0 djpjsldo-toa-icea-FA-lutein 1 EACH tablet 1 tab PO DAILY RF: 0 albuterol sulfate 1 INHALER inhaler 1 - 2 puff inhalation Q4H PRN PRN (Reason: Wheezing) Qty: 1 RF: 0 omeprazole 20 MG capsule,delayed release(DR/EC) 40 mg PO DAILY RF: 0 gabapentin 300 MG capsule 300 mg PO TIDCM Qty: 60 RF: 0 melatonin-pyridoxine HCl (B6) 1 EACH tablet,ext release multiphase 1 tab PO QHS PRN (Reason: Sleep) RF: 0 levetiracetam 750 MG tablet 1,500 mg PO BID RF: 0 cyclobenzaprine 10 MG tablet 10 mg PO TID PRN (Reason: Muscle Spasm) RF: 0 oxycodone-acetaminophen 1 TABLET tablet 1 tab PO Q4H PRN PRN (Reason: Pain Score 1-10/10) RF: 0 ondansetron 4 MG tablet 4 mg PO Q8H PRN PRN (Reason: Nausea) Qty: 10 RF: 0 oxycodone-acetaminophen [oxycodone-acetaminophen] 1 TABLET tablet 1 tab PO Q6H PRN PRN (Reason: Pain) 3 Days Qty: 12 RF: 0 clindamycin HCl [Cleocin HCl] 300 MG capsule 300 mg PO Q6H Qty: 40 RF: 0 Other Ambulatory Orders: COVID Outpatient Monoclonal Antibody Referral (Routine) Timeframe: 1 Day Facility: [facility] - Location: [facility] Ordered By: Dr. Kenny Kaye Primary Care Provider: Ari Sotomayor Referrals: Ari Sotomayor DO [Primary Care Provider] - Activity Restrictions/Additional Instructions: Try to get a home portable pulse oximeter and closely watch your oxygen levels periodically. If you stay below 90% for more than a minute or so, and/or you are feeling like your breathing is getting worse, return to the emergency department for further evaluation. Disposition Disposition: Home, Self Care
[2021-07-21] MEDS: Morphine 4 MG/ML Syringe IV (14:52)
[2021-07-21 14:53] LABS: Absolute Lymphocyte Count 1.83 X10^3/uL (0.83-4.51); Absolute Neutrophil Count 5.6 X10^3/uL (2.0-7.7); Basophil# 0.03 X10^3/uL; Basophil% 0.4 % (0-1); Eosinophil# 0.01 X10^3/uL; Eosinophils% 0.1 % (0-5); Hematocrit 50.7 % (37-47); Hemoglobin 17.1 g/dL (12.0-15.0); Lymphocyte # 1.83 X10^3/ul (0.83-4.51); Lymphocyte % 23.1 % (19-41); Mean Corp Hgb Conc 33.7 g/dL (32-36); Mean Corpuscular Hgb 32.4 pg (27.0-32.0); Mean Corpuscular Volume 96.2 fL (81-99); Mean Platelet Vol. 10.1 fl (6.2-12.0); Monocyte# 0.44 X10^3/uL; Monocyte% 5.6 % (0-10); NRBC Flagged by Analyzer 0 % (0-5); Neutrophil # 5.58 X10^3/uL (2.7-7.7); Neutrophil % 70.4 % (47-70); Platelet Count 245 K/mm3 (150-450); RBC Distribution Width CV 13.2 % (11.6-14.6); RBC Distribution Width SD 47.1 fl (35.1-43.9); Red Blood Count 5.27 M/mm3 (4.2-5.4); White Blood Count 7.9 K/mm3 (4.4-11.0)
[2021-07-21] MEDS: Ondansetron 4 MG/2 ML Vial IV (14:55)
[2021-07-21 15:01] LABS: D-Dimer Quantitative (DVT/PE) 0.33 FEU/ug/m (0.27-0.49)
[2021-07-21 15:05] LABS: Anion Gap 11 (5-15); BUN 16 mg/dL (7-18); BUN/Creat Ratio 18.1 RATIO (10-20); Calcium,Total 8.8 mg/dL (8.5-10.1); Chloride 107 mmol/L (98-107); Creatinine, Serum 0.88 mg/dL (0.55-1.02); EST Glomerular Filtration Rate 71 mL/min (>60); Est Glom Filt Rate - Afr Amer 86 mL/min (>60); Estimated Creatinine Clearance 78.15 ml/min; Glucose 138 mg/dL (74-106); Potassium 3.2 mmol/L (3.5-5.1); Sodium Level 139 mmol/L (136-145); Troponin-I HS 3 pg/mL (3.0-54.0)
[2021-07-21] MEDS: DiphenhydrAMINE 50 MG/ML Syringe 25 MG IV (15:23)
[2021-07-21] MEDS: MethylPREDNISolone 125 MG/2 ML Vial IV (15:23)
--- NOTE | 2021-07-21 15:30 | RAD_ITS ---
STUDY: X-RAY CHEST REASON FOR EXAM: Female, 51 years old. sob DAY 3 OF COVID SYMPTOMS, FAMILY IS ALL POSITIVE. CHEIF COMPLAINT CHEST PAIN. TECHNIQUE: Frontal portable view of the chest COMPARISON: 22 September 2020 FINDINGS: There are bilateral basal irregular low density opacities. There is no pneumothorax, cardiomegaly or effusions. There is ACDF. RAD/Chest 1 View (Portable) IMPRESSION: Bilateral Covid pneumonia. Electronically Signed: Lacie Li MD at 16:00 EST Tel , Service support ,
--- NOTE | 2021-07-21 15:58 | ED.RN ---
SPOKE WITH SA[facility]Z PE[facility]A [facility]. SHE WAS IN TO EVALUATE AND DOES NOT FEEL COMFORTABLE WITH SENDING PT. HOME, EVEN THOUGH PT. REQUESTS TO GO HOME. PT. IS PINK SLIPPED AND REFERRAL WILL BE MADE. DOCTOR ADRIAN UPDATED. WILL CONTINUE TO MONITOR AND WAIT FOR REFERRAL FROM [facility] FOR PLACEMENT.
[2021-07-21] MEDS: levETIRAcetam IV 1,000 MG/100 ML BAG 400 MG IV (16:05)
[2021-07-21] MEDS: Metoclopramide 10 MG/2 ML Vial IV (16:42)
[2021-07-21 16:47] VITALS: BP 136/81; PULSE 102; RESP 18; O2SAT 94
[2021-07-21] MEDS: Ketorolac 15 MG/ML Vial IV (17:46)
== END 2021-07-21 18:14 | disposition home or self-care (01) ==
PROVIDERS: Emergency Provider Emergency Medicine; PCP Family Medicine
DX: U07.1 COVID-19 (principal); J12.82 Pneumonia due to coronavirus disease 2019; R09.1 Pleurisy; I48.0 Paroxysmal atrial fibrillation; K21.9 Gastro-esophageal reflux disease without esophagitis; G40.909 Epilepsy, unspecified, not intractable, without status epilepticus; Z79.899 Other long term (current) drug therapy; Z87.891 Personal history of nicotine dependence; Z86.73 Personal history of transient ischemic attack (TIA), and cerebral infarction without residual deficits
CPT/HCPCS: 71045; 80048; 84484; 85025; 85379; 93005; 96361; 96365; 96375; 99284; J7050; A4216; J2405

== ENCOUNTER 2021-07-26 21:57 | Inpatient (IN) | payer MEDICARE, MEDICAID, SELFPAY ==
[2021-07-26 21:58] VITALS: BP 104/65; PULSE 110; RESP 24; TEMP 35.9; O2SAT 88; BMI 29.5
[2021-07-26 22:00] VITALS: BP 104/65; PULSE 110; RESP 24; TEMP 35.9; O2SAT 88
[2021-07-26] MEDS: Ondansetron ODT 4 MG Tablet PO (22:06)
--- NOTE | 2021-07-26 22:18 | RAD_ITS ---
STUDY: X-RAY CHEST REASON FOR EXAM: Female, 51 years old. SOB TECHNIQUE: AP COMPARISON: None. FINDINGS: Fusion hardware of the lower cervical spine. Multifocal infiltrates with features commonly reported with COVID pneumonia. There is no demonstrated pleural abnormality. Normal size heart. Normal mediastinum and kimani. Normal visualized pulmonary arteries. Normal visualized aortic arch and descending thoracic aorta. Normal visualized thoracic spine. Normal visualized ribs, clavicles, and shoulders. There is no demonstrated abnormality of the visualized soft tissue structures of the upper abdomen. RAD/Chest 1 View IMPRESSION: Multifocal infiltrates with features commonly reported with COVID pneumonia. Electronically Signed: Wilman Louis MD ([place]) at 22:32 EST , Service support ,
[2021-07-26 22:58] VITALS: O2SAT 90
[2021-07-26 23:03] VITALS: BP 95/74; PULSE 106; RESP 18; TEMP 36.2; O2SAT 94
--- NOTE | 2021-07-26 23:24 | EKG12_ITS ---
Test Reason : DYSRHYTHMIA Blood Pressure : / mmHG Vent. Rate : 108 BPM Atrial Rate : 108 BPM P-R Int : 140 ms QRS Dur : 096 ms QT Int : 340 ms P-R-T Axes : 062 038 082 degrees QTc Int : 455 ms Suspect unspecified pacemaker failure Sinus tachycardia Nonspecific ST and T wave abnormality Abnormal ECG Confirmed by WENDIE RICHARDSON, JAZMIN ([id number]), manager editorial MARQUIS AVILA ([id number]) on 07/29/2021 9:00:32 AM Referred By: ESTRELLA Confirmed By:BETH PRESSLEY MD
[2021-07-27] VITALS (25 sets, daily range): BP systolic 86–144; BP diastolic 48–118; PULSE 61–104; RESP 16–24; TEMP 35.7–37.2; O2SAT 84–97; BMI 29.5
[2021-07-27] MEDS: levETIRAcetam IV 1,000 MG/100 ML BAG 400 MG IV ×3 (00:17→23:15)
[2021-07-27 00:25] LABS: Absolute Lymphocyte Count 1.04 X10^3/uL (0.83-4.51); Absolute Neutrophil Count 7.6 X10^3/uL (2.0-7.7); Basophil# 0.02 X10^3/uL; Basophil% 0.2 % (0-1); Hematocrit 46.1 % (37-47); Hemoglobin 15.5 g/dL (12.0-15.0); Lymphocyte # 1.04 X10^3/ul (0.83-4.51); Lymphocyte % 11.6 % (19-41); Mean Corp Hgb Conc 33.6 g/dL (32-36); Mean Corpuscular Hgb 31.7 pg (27.0-32.0); Mean Corpuscular Volume 94.3 fL (81-99); Mean Platelet Vol. 10.2 fl (6.2-12.0); Monocyte% 3.3 % (0-10); NRBC Flagged by Analyzer 0 % (0-5); Neutrophil # 7.59 X10^3/uL (2.7-7.7); Neutrophil % 84.5 % (47-70); POSITIVE MORPHOLOGY YES; Platelet Count 274 K/mm3 (150-450); RBC Distribution Width SD 45.1 fl (35.1-43.9); Red Blood Count 4.89 M/mm3 (4.2-5.4)
[2021-07-27 00:35] LABS: Differential Indicated SCAN CRITERIA MET
[2021-07-27 00:44] LABS: Anion Gap 10 (5-15); BUN 17 mg/dL (7-18); BUN/Creat Ratio 20.7 RATIO (10-20); Calcium,Total 8.9 mg/dL (8.5-10.1); Chloride 99 mmol/L (98-107); Creatinine, Serum 0.82 mg/dL (0.55-1.02); EST Glomerular Filtration Rate 78 mL/min (>60); Est Glom Filt Rate - Afr Amer 94 mL/min (>60); Estimated Creatinine Clearance 83.87 ml/min; Glucose 103 mg/dL (74-106); Magnesium 2.1 mg/dL (1.6-2.6); Potassium 2.8 mmol/L (3.5-5.1); Sodium Level 136 mmol/L (136-145); Troponin-I HS 10 pg/mL (3.0-54.0)
[2021-07-27 00:51] LABS: Partial Thromboplast Time 29.3 Seconds (24.1-36.2)
[2021-07-27 01:09] LABS: Differential Comment SCANNED
[2021-07-27] MEDS: Morphine 4 MG/ML Syringe IV (01:12)
[2021-07-27] MEDS: Ondansetron 4 MG/2 ML Vial IV (01:12)
[2021-07-27] MEDS: DiphenhydrAMINE 50 MG/ML Syringe IV (01:12)
[2021-07-27] MEDS: MethylPREDNISolone 125 MG/2 ML Vial IV (01:12)
[2021-07-27 01:47] LABS: D-Dimer Quantitative (DVT/PE) 0.76 FEU/ug/m (0.27-0.49)
[2021-07-27] MEDS: Potassium Chloride 10mEq/100mL 10 MEQ/100 ML IV.SOLN. 100 MEQ IV BOLUS ×2 (03:46→04:39)
--- NOTE | 2021-07-27 04:28 | EDS_ITS ---
HPI History of Present Illness Chief Complaint: Shortness of Breath Narrative Narrative: Patient is a 51-year-old female with past medical history of smoking but no reported history of COPD emphysema asthma or need for supplemental oxygen. She states she is approximately 7 to 8 days into a known Covid diagnosis. She reports that as time is past she has been having worsening shortness of breath and chest pain. She states secondary to these worsening symptoms she became concerned and therefore presents to the ER for evaluation [facility] Medical History Asthma Brain aneurysm Chronic pain COVID-19 Former smoker GERD (gastroesophageal reflux disease) Kidney disease Kidney stones Migraines Rheumatoid arthritis Seizures Sleep apnea Home Medications fluticasone propionate 2 spray NASAL BID 09/30/16 [History Last Taken 06/21/19] ujzoexrs-vup-cwep-FA-lutein 1 tab PO DAILY 03/21/19 [History Last Taken 06/21/19] albuterol sulfate 1 - 2 puff INHALATION Q4H PRN PRN #1 inhaler 04/20/19 [Rx Last Taken 06/20/19] omeprazole 40 mg PO DAILY 05/31/19 [History Last Taken 06/21/19] gabapentin 300 mg PO TIDCM #60 cap 06/03/19 [Rx Last Taken 06/21/19] melatonin-pyridoxine HCl (B6) 1 tab PO QHS PRN 06/21/19 [History Last Taken 06/20/19] levetiracetam 1,500 mg PO BID 12/04/19 [History Last Taken Unknown] cyclobenzaprine 10 mg PO TID PRN 02/27/20 [History Last Taken Unknown] oxycodone-acetaminophen 1 tab PO Q4H PRN PRN 02/27/20 [History Last Taken Unknown] ondansetron 4 mg PO Q8H PRN PRN #10 tab 09/22/20 [Rx Last Taken Unknown] oxycodone-acetaminophen 1 tab PO Q6H PRN PRN 3 Days #12 tablet 01/31/21 [Rx Last Taken Unknown] clindamycin HCl [Cleocin HCl] 300 mg PO Q6H #40 capsule 06/30/21 [Rx Last Taken Unknown] metoclopramide HCl 10 mg PO Q6H PRN #20 tab 07/21/21 [Rx Last Taken Unknown] Allergy/AdvReac Type Severity Reaction Status Date / Time Penicillins Allergy Anaphylaxis Verified 07/21/21 14:12 propoxyphene napsylate Allergy Rash Verified 07/21/21 14:12 [From Darvocet-N 100] hydrocodone bitartrate AdvReac Itching Verified 07/21/21 14:12 [From Vicodin] venom-honey bee AdvReac Chest Verified 07/21/21 14:12 [bee venom (honey bee)] tightness PLASTIC TAPE Allergy blistering Uncoded 07/21/21 14:12 IV contrast AdvReac Vomiting Uncoded 07/21/21 14:12 Surgical History History of appendectomy History of cholecystectomy Social History Smoking Status: Former smoker ROS ROS ED Constitutional Constitutional ED: Reports chills, fever(s) and subjective ENT ENT ED: Reports sore throat Cardiovascular Cardiovascular: Reports chest pain Respiratory/Chest Respiratory/Chest: Reports cough and dyspnea Gastrointestinal Gastrointestinal: Reports nausea and vomiting; Denies abdominal pain or diarrhea Genitourinary Genitourinary ED: Denies dysuria Musculoskeletal Musculoskeletal: Reports myalgias Integumentary Denies rash Neurologic Neurologic: Denies headache(s) Hematologic/Lymphatic Hematologic/Lymphatic: Denies easy bleeding or easy bruising EXAM Physical Exam Const Vital Signs: 07/26/21 21:58 07/26/21 22:00 07/26/21 22:58 Temperature 96.6 F L 96.6 F L Temperature Source Temporal Temporal Pulse Rate 110 H 110 H Respiratory Rate 24 H 24 H Respiratory Effort Labored Respiratory Depth Shallow Respiratory Pattern Tachypnea Blood Pressure 104/65 104/65 Blood Pressure Mean 78 78 Pulse Ox 88 88 Oxygen Delivery Method Room Air Room Air Room Air 07/26/21 23:03 07/27/21 00:08 07/27/21 01:13 Temperature 97.2 F L 97.5 F L Temperature Source Temporal Oral Pulse Rate 106 H 104 H Respiratory Rate 18 24 H Respiratory Effort Respiratory Depth Respiratory Pattern Blood Pressure 95/74 143/79 H Blood Pressure Mean 81 100 Pulse Ox 94 90 93 Oxygen Delivery Method Room Air Room Air Room Air 07/27/21 03:30 07/27/21 04:07 Temperature 98.9 F Temperature Source Temporal Pulse Rate 76 97 Respiratory Rate 22 H 24 H Respiratory Effort Respiratory Depth Respiratory Pattern Blood Pressure 126/88 H Blood Pressure Mean 100 Pulse Ox 93 95 Oxygen Delivery Method Room Air Nasal Cannula Positive well nourished and well developed General Appearance ED: well developed HEENT Reports dry mucous membranes HEENT Narrative: No tongue or lip swelling no oral lesions no airway edema or compromise Mouth ED: Yes dry mucous membranes Mouth: dry mucous membranes Eyes PERRL and EOMs intact bilaterally Neck supple and no JVD Neck Narrative: Positive anterior cervical lymphadenopathy noted Resp Resp Narrative: Breath sounds are diminished throughout with diffuse rhonchi noted. Patient also has mild tachypnea and accessory muscle use Cardio regular rhythm Rate: tachycardic and other Other Details: Radial pulses are plus 2 out of 4 bilaterally they are equal and symmetric GI normal to inspection, nondistended, normoactive bowel sounds, non-tender, non- distended and no masses GI Narrative: No voluntary guarding or rigidity no pulsatile mass Auscultation: normoactive bowel sounds Palpation: soft Extremity normal to inspection Extremity Narrative: No asymmetric edema no pitting edema negative Homans' sign bilaterally Neuro oriented x3 and CN's II-XII intact bilaterally Sensorium / Orientation: alert Psych Psych Narrative: Patient has a depressed/flat affect Mood & Affect: depressed Skin no rashes or lesions noted MDM MDM MDM Narrative Medical decision making narrative: Patient presented to the ER and in mild respiratory distress with tachypnea and accessory muscle use. Her pulse ox in room air was also diminished to 87 to 88%. With her persistent chest discomfort there is concern that she has now developed a pulmonary embolus from her Covid and therefore basic labs of the CTA were ordered. Labs showed hypokalemia but otherwise no clinically significant findings. CTA revealed changes consistent with Covid pneumonitis but no obvious pulmonary embolus or dissection. At this point as she is requiring supplemental oxygen and remains in mild respiratory distress I do not feel it is safe for her to be discharged and patient will be placed in the hospital for further care. Lab Data Attestation: I reviewed the patient's lab results. Labs: Laboratory Results - last 24 hr 07/27/21 07/27/21 07/27/21 00:12 00:12 00:12 WBC 9.0 RBC 4.89 Hgb 15.5 H Hct 46.1 MCV 94.3 MCH 31.7 MCHC 33.6 RDW Std Deviation 45.1 H RDW Coeff of Bere 13.0 Plt Count 274 MPV 10.2 Immature Gran % (Auto) 0.400 Neut % (Auto) 84.5 H Lymph % (Auto) 11.6 L [place] % (Auto) 3.3 Eos % (Auto) 0.0 Baso % (Auto) 0.2 Absolute Neuts (auto) 7.6 Absolute Lymphs (auto) 1.04 Nucleated RBC % 0 Differential Comment SCANNED PT 13.0 INR 1.0 APTT 29.3 D-Dimer Quant (PE/DVT) 0.76 H* Sodium 136 Potassium 2.8 L Chloride 99 Carbon Dioxide 27.0 Anion Gap 10 BUN 17 Creatinine 0.82 Estim Creat Clear Calc 83.87 Est GFR (MDRD) Af Amer 94 Est GFR (MDRD) Non-Af 78 BUN/Creatinine Ratio 20.7 H Glucose 103 Calcium 8.9 Magnesium 2.1 Troponin I High Sens 10 Radiography Diagnostic Testing: Clinical Impression(s) from Imaging Studies Chest X-Ray 07/26/21 22:18 IMPRESSION: Multifocal infiltrates with features commonly reported with COVID pneumonia. Electronically Signed: Wilman Louis MD ([place]) at 22:32 EST , Service support , Chest CTA 07/27/21 23:26 IMPRESSION: Negative CTA chest examination, without a demonstrated pulmonary embolism or arterial dissection. Multiple bilateral multifocal pneumonitis. Electronically Signed: Luz Craven MD at 3:28 EST , Service support , Discharge Plan Triage Chief Complaint: Shortness of Breath ED Provider: Alfredito Guerrero Dx/Rx/DC Orders Clinical Impression: COVID-19, Acute hypokalemia Prescriptions: No Action fluticasone propionate 1 SPRAY spray,suspension 2 spray NASAL BID RF: 0 pzwjxyyb-dzy-bztd-FA-lutein 1 EACH tablet 1 tab PO DAILY RF: 0 albuterol sulfate 1 INHALER inhaler 1 - 2 puff inhalation Q4H PRN PRN (Reason: Wheezing) Qty: 1 RF: 0 omeprazole 20 MG capsule,delayed release(DR/EC) 40 mg PO DAILY RF: 0 gabapentin 300 MG capsule 300 mg PO TIDCM Qty: 60 RF: 0 melatonin-pyridoxine HCl (B6) 1 EACH tablet,ext release multiphase 1 tab PO QHS PRN (Reason: Sleep) RF: 0 levetiracetam 750 MG tablet 1,500 mg PO BID RF: 0 cyclobenzaprine 10 MG tablet 10 mg PO TID PRN (Reason: Muscle Spasm) RF: 0 oxycodone-acetaminophen 1 TABLET tablet 1 tab PO Q4H PRN PRN (Reason: Pain Score 1-10/10) RF: 0 ondansetron 4 MG tablet 4 mg PO Q8H PRN PRN (Reason: Nausea) Qty: 10 RF: 0 oxycodone-acetaminophen [oxycodone-acetaminophen] 1 TABLET tablet 1 tab PO Q6H PRN PRN (Reason: Pain) 3 Days Qty: 12 RF: 0 clindamycin HCl [Cleocin HCl] 300 MG capsule 300 mg PO Q6H Qty: 40 RF: 0 metoclopramide HCl [metoclopramide HCl] 10 MG tablet 10 mg PO Q6H PRN (Reason: nausea and vomiting) Qty: 20 RF: 0 Primary Care Provider: Ari Sotomayor Referrals: Ari Sotomayor DO [Primary Care Provider] - Disposition Disposition: Acute Care Hospital [facility]
--- NOTE | 2021-07-27 04:32 | HP.PCM.HOS_ITS ---
HPI - General HPI Narrative ORTIZ JACOBS, is a 51 F with multiple comorbidities came to ER with symptoms of shortness of breath, fever, chills, pleuritic chest pain, productive cough, generalized body aches for 9 days. She has history of smoking, half pack per day since age of 17. She also has history of MS mild which did not require stenting or cardiac cath probably found on a stress test as per patient. She has sharp midsternal pleuritic chest pain on coughing. She also complains of nausea, vomiting and diarrhea. She states she has 4-5 persistent vomiting throughout the day for last 4 days and is dehydrated. Denies abdominal pain. She is not vaccinated. In ED, she was found tachypneic, afebrile pulse ox 88% on room air. Labs reviewed. Hemoconcentration with normal ANC and ALC. D-dimer elevated. CT angiogram negative for PE but bilateral multifocal viral pneumonitis. Mild hypokalemia. Troponin negative. Magnesium normal. [facility] Medical History Asthma Brain aneurysm Chronic pain COVID-19 Former smoker GERD (gastroesophageal reflux disease) Kidney disease Kidney stones Migraines Rheumatoid arthritis Seizures Sleep apnea Home Medications fluticasone propionate 2 spray NASAL BID 09/30/16 [History Last Taken 06/21/19] zafkjarm-gwk-nldt-FA-lutein 1 tab PO DAILY 03/21/19 [History Last Taken 06/21/19] albuterol sulfate 1 - 2 puff INHALATION Q4H PRN PRN #1 inhaler 04/20/19 [Rx Last Taken 06/20/19] omeprazole 40 mg PO DAILY 05/31/19 [History Last Taken 06/21/19] gabapentin 300 mg PO TIDCM #60 cap 06/03/19 [Rx Last Taken 06/21/19] melatonin-pyridoxine HCl (B6) 1 tab PO QHS PRN 06/21/19 [History Last Taken 06/20/19] levetiracetam 1,500 mg PO BID 12/04/19 [History Last Taken Unknown] cyclobenzaprine 10 mg PO TID PRN 02/27/20 [History Last Taken Unknown] oxycodone-acetaminophen 1 tab PO Q4H PRN PRN 02/27/20 [History Last Taken Unknown] ondansetron 4 mg PO Q8H PRN PRN #10 tab 09/22/20 [Rx Last Taken Unknown] oxycodone-acetaminophen 1 tab PO Q6H PRN PRN 3 Days #12 tablet 01/31/21 [Rx Last Taken Unknown] clindamycin HCl [Cleocin HCl] 300 mg PO Q6H #40 capsule 06/30/21 [Rx Last Taken Unknown] metoclopramide HCl 10 mg PO Q6H PRN #20 tab 07/21/21 [Rx Last Taken Unknown] Allergy/AdvReac Type Severity Reaction Status Date / Time Penicillins Allergy Anaphylaxis Verified 07/21/21 14:12 propoxyphene napsylate Allergy Rash Verified 07/21/21 14:12 [From Darvocet-N 100] hydrocodone bitartrate AdvReac Itching Verified 07/21/21 14:12 [From Vicodin] venom-honey bee AdvReac Chest Verified 07/21/21 14:12 [bee venom (honey bee)] tightness PLASTIC TAPE Allergy blistering Uncoded 07/21/21 14:12 IV contrast AdvReac Vomiting Uncoded 07/21/21 14:12 Surgical History History of appendectomy History of cholecystectomy Social History Smoking Status: Former smoker ROS ROS Narrative Constitutional: Reports fatigue and weakness. Fever with chills. Dehydrated HEENT: Reports systems reviewed and no addt'l complaints, except as documented Respiratory/Chest: As mentioned in HPI Gastrointestinal: As mentioned in HPI Genitourinary: Dark-colored urine. Denies burning urination or new urinary tract symptoms Musculoskeletal: Reports joint pain and limited range of motion Neurologic: No recent seizure-like activity. History of seizure skin: No ulcer. No rash Endocrinology: Reports systems reviewed and no addt'l complaints, except as documented Hematologic/Lymphatic: Reports systems reviewed and no addt'l complaints, except as documented Rest 12 ROS are negative except as mentioned in HPI Vital Signs Vital Signs Vital Signs: 07/26/21 21:58 07/26/21 22:00 07/26/21 22:58 Temperature 96.6 F L 96.6 F L Temperature Source Temporal Temporal Pulse Rate 110 H 110 H Respiratory Rate 24 H 24 H Respiratory Effort Labored Respiratory Depth Shallow Respiratory Pattern Tachypnea Blood Pressure 104/65 104/65 Blood Pressure Mean 78 78 Pulse Ox 88 88 Oxygen Delivery Method Room Air Room Air Room Air 07/26/21 23:03 07/27/21 00:08 07/27/21 01:13 Temperature 97.2 F L 97.5 F L Temperature Source Temporal Oral Pulse Rate 106 H 104 H Respiratory Rate 18 24 H Respiratory Effort Respiratory Depth Respiratory Pattern Blood Pressure 95/74 143/79 H Blood Pressure Mean 81 100 Pulse Ox 94 90 93 Oxygen Delivery Method Room Air Room Air Room Air 07/27/21 03:30 07/27/21 04:07 Temperature 98.9 F Temperature Source Temporal Pulse Rate 76 97 Respiratory Rate 22 H 24 H Respiratory Effort Respiratory Depth Respiratory Pattern Blood Pressure 126/88 H Blood Pressure Mean 100 Pulse Ox 93 95 Oxygen Delivery Method Room Air Nasal Cannula Weight Weight: 200 lb Body Mass Index (BMI) 29.5 Physical Exam Narrative General: Alert, Oriented x3, Cooperative HEENT: Atraumatic, PERRLA, EOMI, Normocephalic Oral: Oral mucosa is dry. No Gingival or Mucosal Lesions/ Ulcerations Neck: Supple, No JVD, Negative Carotid Bruits Lungs: Air entry diminished in bilateral lung bases. Bilateral coarse crep itation and rhonchi. Cardiovascular: Regular rate, Regular Rhythm, Normal S1, Normal S2, No murmurs Abdomen: Bowel Sounds Present, Soft, Non Tender, Non-Distended : No renal angle tenderness. No suprapubic tenderness. Extremities: No edema, Capillary Refill Less than 3 Seconds Skin: No rashes, No breakdown Musculoskeletal: No Tenderness to Palpation of Joints or Extremities Neurological: Cranial nerves II-XII grossly intact, DTR 2+/4 and Symmetrical, Neuro grossly intact Psych/Mental Status: Anxious and restless. Results Lab / Micro Data Result Diagrams: 07/27/21 00:12 07/27/21 00:12 Labs: Laboratory Results - last 24 hr 07/27/21 00:12: WBC 9.0, RBC 4.89, Hgb 15.5 H, Hct 46.1, MCV 94.3, MCH 31.7, MCHC 33.6, RDW Std Deviation 45.1 H, RDW Coeff of Bere 13.0, Plt Count 274, MPV 10.2, Immature Gran % (Auto) 0.400, Neut % (Auto) 84.5 H, Lymph % (Auto) 11.6 L, Beauregard % (Auto) 3.3, Eos % (Auto) 0.0, Baso % (Auto) 0.2, Absolute Neuts (auto) 7.6, Absolute Lymphs (auto) 1.04, Nucleated RBC % 0, Differential Comment SCANNED 07/27/21 00:12: Sodium 136, Potassium 2.8 L, Chloride 99, Carbon Dioxide 27.0, Anion Gap 10, BUN 17, Creatinine 0.82, Estim Creat Clear Calc 83.87, Est GFR (MDRD) Af Amer 94, Est GFR (MDRD) Non-Af 78, BUN/Creatinine Ratio 20.7 H, Glucose 103, Calcium 8.9, Magnesium 2.1, Troponin I High Sens 10 07/27/21 00:12: PT 13.0, INR 1.0, APTT 29.3, D-Dimer Quant (PE/DVT) 0.76 H* Radiology Impression Chest X-Ray 07/26/21 22:18 IMPRESSION: Multifocal infiltrates with features commonly reported with COVID pneumonia. Electronically Signed: Wilman Louis MD (Brooks) at 22:32 EST , Service support , Chest CTA 07/27/21 23:26 IMPRESSION: Negative CTA chest examination, without a demonstrated pulmonary embolism or arterial dissection. Multiple bilateral multifocal pneumonitis. Electronically Signed: Luz Craven MD at 3:28 EST , Service support , Assessment & Plan Assessment/Plan (1) Pneumonia due to COVID-19 virus: PLAN: 1. Bilateral multifocal COVID-19 pneumonia with mild hypoxia with history of asthma: Patient is being admitted on MedSurg floor. Started on dexamethasone and remdesivir. IV fluid Ringer lactate. Inflammatory markers ordered. Pneumonia work-up including blood culture, urinary antigens, sputum cu lture. Mucinex, incentive spirometry and Pep. Bronchodilator is scheduled ordered. Patient does not seem to be in asthma exacerbation. 2. Acute gastroenteritis viral from COVID-19, hypokalemia: Potassium is getting replaced. IV fluid for dehydration. Monitor intake and output. 3. Chronic epilepsy of unknown etiology, age and type and migraine headache: Continue patient home dose Keppra 1500 mg twice daily. No seizure activity noted in ED. Denies headache. 4. Multiple comorbidities which includes GERD, aneurysm coiling in the brain, nondiabetic gastroparesis, paroxysmal A. fib, PTSD and history of C. difficile colitis: Patient also has history rheumatoid arthritis with muscle pain. Home medication reconciliation done. Twelve-lead EKG shows sinus tachycardia at 108 bpm. QTc 455 ms. Patient not on anticoagulant at home. On Percocet and Flexeril at home. VTE prophylaxis moderate to high risk: Enoxaparin 30 mg subcu twice daily. Living will/advanced directive/end of life care: Patient does have living will or advanced directive. After discussion of benefits/risks procedures involved with full code, DNR CC arrest and DNR CC, the patient opted for full code. Her fianc? is power of attorney general for health and next to kin. Patient does want artificial life support including intubation, tube feed, ventilator and/chest compression, central venous catheter, vasopressor and DC shock if needed Total time spent in [id number] encounter in discussion of advanced dire ctive 16 minutes. Charges/Coding Visit Charges Inpatient E&M: 50928 Init Hosp L3 Procedures Hospitalists Procedures: 22975 Advncd Care Plan 30 Min
[2021-07-27] MEDS: 0.9% Normal Saline 1,000 ML 999 ML IV (04:48)
[2021-07-27] MEDS: Ibuprofen 200 MG Tablet 400 MG PO (04:48)
[2021-07-27] MEDS: Enoxaparin 30 MG/0.3 ML Syringe SC ×2 (06:18→20:27)
[2021-07-27] MEDS: Lactated Ringers 1,000 ML 100 ML IV (06:52)
--- NOTE | 2021-07-27 06:59 | PN.HOSP_ITS ---
Hospitalist Note Patient is a 51-year-old lady including seizure disorder admitted with progressive generalized weakness and body aches and progressive shortness of breath. Diagnosed with COVID-19 pneumonia admitted to regular nursing floor for further management 1. COVID-19 pneumonia ?Admitted to regular nursing floor managed with dexamethasone as well as r emdesivir in addition to supplemental oxygen titrated to keep pulse ox greater than 90 2. Mild eczema exacerbation ?Patient is on bronchodilator treatment in addition to Decadron as described above 3. Seizure disorder with breakthrough seizures ?Did institute seizure precautions did continue patient antiepilepsy drugs?Keppra 1500 mg 3 times daily 4. GERD ?On PPI 5. Paroxysmal A. fib ?Rate controlled 6. Gastroparesis ?Patient is on Reglan 7. Previous history of CVA ?With residual left lower extremity weakness 8. DVT prophylaxis ?Enoxaparin
[2021-07-27] MEDS: Fluticasone 0.05% 1 SPRAY NASAL.SRY 2 SPRAY NASAL ×2 (09:31→22:38)
[2021-07-27] MEDS: Gabapentin 300 MG Capsule PO ×3 (09:32→17:33)
[2021-07-27] MEDS: Multivitamins,Ther W-Minerals Tablet 1 TABLET PO (09:32)
[2021-07-27] MEDS: guaiFENesin 1,200 MG Tablet 1200 MG PO ×2 (09:36→20:27)
[2021-07-27] MEDS: dexAMETHasone 4 MG Tablet 6 MG PO (09:36)
[2021-07-27] MEDS: Pantoprazole Sodium 40 MG Tablet PO (09:36)
[2021-07-27 11:40] LABS: Lactic Acid 1.6 mmol/L (0.4-1.9)
[2021-07-27 11:43] LABS: Phosphorus 2.9 mg/dL (2.5-4.9)
[2021-07-27 11:47] LABS: CPK Total, Creatine Kinase 275 U/L (26-192); LDH 547 U/L (84-246)
[2021-07-27 11:52] LABS: Procalcitonin 0.22 ng/mL (0.00-0.09)
[2021-07-27 13:13] LABS: Anion Gap 7 (5-15); BUN 17 mg/dL (7-18); BUN/Creat Ratio 26.2 RATIO (10-20); Calcium,Total 8.3 mg/dL (8.5-10.1); Chloride 107 mmol/L (98-107); Creatinine, Serum 0.65 mg/dL (0.55-1.02); EST Glomerular Filtration Rate 102 mL/min (>60); Est Glom Filt Rate - Afr Amer 123 mL/min (>60); Estimated Creatinine Clearance 105.81 ml/min; Glucose 151 mg/dL (74-106); Potassium 3.4 mmol/L (3.5-5.1); Sodium Level 139 mmol/L (136-145)
[2021-07-27] MEDS: levETIRAcetam 750 MG Tablet 1500 MG PO (13:47)
--- NOTE | 2021-07-27 14:00 | CASEMGMT ---
RN CM OPERATIONS SUPERINTENDENT NICOLAS spoke with patient for initial transition planning/care coordination assessment. RN NICOLAS introduced self and role at [facility]. Pt voices understanding and consents to assessment at this time. Pt is A/O at this time and answers all questions appropriately. Care providers, pharmacy, and demographics verified/updated at this time. COVID testing done @ home and then in [facility] ED on 07/21, per pt report. PCP: Dr Sotomayor Specialists: Dr Robledo--pain mgmt Preferred Pharmacy: [facility] Retail Insurance: [facility] Prescription Benefit: Yes Living Will/HPOA: Does not have LW. HPOA is Jeff lynn. Pt aware copies are not on file @ [facility]. She states Jeff has a copy and can bring it in. LNOK: Jeff Lynn is POA. Pt has 2 children. One dtr's name is Jo Living Arrangements: Lives w/signJeff wong, in 2-story home w/one step to enter. FFSU. Independent w/ADL's and IADL's. Jeff has not been ill. She will be able to self isolate once returning home--there is a separate bedroom and bathroom she can use. Transportation: Jeff provides transportation DME: Denies using any DME and denies needs. Has a walker but does not use. No home O2. Reviewed list of local DME companies. Pt states [employer]. HHC/SNF: [facility] about 6 yrs ago and [facility]. States does not feel she will need HHC @ d/c. Pt wishes to return home and states has no concerns with going home at time of discharge. CM to follow for oxygen needs or any further discharge planning/needs. Pt voices no concerns/needs at this time. Advised pt to ask for CM if any further questions/concerns/needs arise. Voices understanding. PLAN: Home w/support of signif other and discharge plans in place. Follow for any Home O2 needs @ d/c Susan IRENE RN, CM
--- NOTE | 2021-07-27 14:35 | NURSING ---
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 RN entered room, pt on toilet with eyes closed, no response with sternal rub, pulse present. Pt opened eyes, moaned, lethargic. Pt lifted to recliner. After in recliner, pt began seizing for approximately 20-[address] Haynes at bedside. Pt slid over to bed. 2mg IV Ativan given. Pt alert and talking. Pt transported to ICU. Bedside report given to CLIVE Rubi
[2021-07-27] MEDS: LORazepam 2 MG/ML Syringe IV (14:57)
--- NOTE | 2021-07-27 14:59 | CT_ITS ---
STUDY: CT BRAIN WITHOUT CONTRAST REASON FOR EXAM: Female, 51 years old. Seizure and history of brain aneurysm RADIATION DOSAGE (If Supplied By Facility): CTDIvol = ( 44.99 ) mGy, DLP = ( 796.11 ) mGycm TECHNIQUE: Transaxial CT imaging of the brain was performed without administration of intravenous contrast material. Individualized dose optimization techniques were used for this CT. COMPARISON: 21 June 2019 FINDINGS: Brain parenchyma is without focal lesions, mass effect, acute intracranial hemorrhage, extra parenchymal fluid collections, hydrocephalus or herniation. Embolization coil is present in the tip of the basilar. The skull is intact there is mucosal reactive change in the left maxillary sinus.. CT/Brain/Head without Contrast IMPRESSION: 1. Normal CT brain. 2. Embolized basilar tip. Electronically Signed: Lacie Li MD at 17:22 EST Tel , Service support ,
--- NOTE | 2021-07-27 15:26 | TELEMED_ITS ---
[facility] Telemed has confirmed receipt of a request for visit. This document confirms receipt of the order initiating the consult. To find the results of the consultation, please view the patient's reports for the scanned Telemed Consult.
[2021-07-27] MEDS: Ipratropium/Albuterol Sulfate 3 ML AMPUL.NEB INHALATION (18:58)
[2021-07-27] MEDS: Ibuprofen 400 MG Tablet PO (20:27)
--- NOTE | 2021-07-27 23:26 | CT_ITS ---
STUDY: CTA CHEST REASON FOR EXAM: Female, 51 years old. hypoxia RADIATION DOSAGE (If Supplied By Facility): CTDIvol = ( 13.81 ) mGy, DLP = ( 525.64 ) mGycm TECHNIQUE: The examination was performed with the intravenous administration of IV 100mL Isovue-370. Post-processing of the angiographic images was performed, with multiplanar reformation and 3D reconstruction. Individualized dose optimization techniques were used for this CT. COMPARISON: 03/22/2019. FINDINGS: Normal enhancement of the main pulmonary artery and right and left pulmonary arteries. Normal enhancement of the bilateral peripheral pulmonary arteries. There is no demonstrated pulmonary embolism. There is mild atherosclerotic calcification of the aortic arch with tortuosity. There is no demonstrated aortic dissection. Normal heart and pericardium. Normal mediastinum. Normal hilar regions. Normal visualized trachea and bronchi. The lungs are well expanded. Multiple bilateral groundglass opacities scattered throughout the lung guerra consistent with multifocal pneumonitis. Normal pleura. Normal chest wall structures. Normal osseous structures. Upper abdomen reveals diffuse fatty liver. There is mild hiatal hernia. Remainder of the visualized upper abdominal structures are normal. CT/CTA Chest W/WO Contrast IMPRESSION: Negative CTA chest examination, without a demonstrated pulmonary embolism or arterial dissection. Multiple bilateral multifocal pneumonitis. Electronically Signed: Luz Craven MD at 3:28 EST , Service support ,
[2021-07-28] VITALS (20 sets, daily range): BP systolic 98–124; BP diastolic 50–88; PULSE 77–97; RESP 18–28; TEMP 36.2–37.1; O2SAT 89–99
[2021-07-28 05:04] LABS: Absolute Lymphocyte Count 1.03 X10^3/uL (0.83-4.51); Absolute Neutrophil Count 5.3 X10^3/uL (2.0-7.7); Basophil# 0.03 X10^3/uL; Basophil% 0.4 % (0-1); Eosinophil# 0.17 X10^3/uL; Eosinophils% 2.4 % (0-5); Hematocrit 40.1 % (37-47); Hemoglobin 13.2 g/dL (12.0-15.0); Lymphocyte # 1.03 X10^3/ul (0.83-4.51); Lymphocyte % 14.7 % (19-41); Mean Corp Hgb Conc 32.9 g/dL (32-36); Mean Corpuscular Hgb 31.7 pg (27.0-32.0); Mean Corpuscular Volume 96.2 fL (81-99); Mean Platelet Vol. 10.4 fl (6.2-12.0); Monocyte# 0.45 X10^3/uL; Monocyte% 6.4 % (0-10); NRBC Flagged by Analyzer 0.3 % (0-5); Neutrophil # 5.26 X10^3/uL (2.7-7.7); Neutrophil % 75.2 % (47-70); POSITIVE COUNT YES; POSITIVE MORPHOLOGY YES; Platelet Count 231 K/mm3 (150-450); RBC Distribution Width CV 13.2 % (11.6-14.6); RBC Distribution Width SD 47.1 fl (35.1-43.9); Red Blood Count 4.17 M/mm3 (4.2-5.4)
[2021-07-28 05:19] LABS: Differential Indicated SCAN CRITERIA MET
[2021-07-28 05:39] LABS: ALB/GLOB Ratio 0.5 RATIO (0.9-2.4); AST(SGOT) 102 U/L (15-37); Alanine Aminotransfer ALT/SGPT 59 U/L (13-56); Albumin, Serum 2.1 g/dL (3.2-5.0); Alkaline Phosphatase 92 U/L (45-117); Anion Gap 6 (5-15); BUN 25 mg/dL (7-18); BUN/Creat Ratio 47.3 RATIO (10-20); Calcium,Total 8.6 mg/dL (8.5-10.1); Chloride 107 mmol/L (98-107); Creatinine, Serum 0.53 mg/dL (0.55-1.02); EST Glomerular Filtration Rate 129 mL/min (>60); Est Glom Filt Rate - Afr Amer 156 mL/min (>60); Estimated Creatinine Clearance 129.76 ml/min; Globulin 4.2 g/dL (2.2-4.2); Glucose 125 mg/dL (74-106); Potassium 4.1 mmol/L (3.5-5.1); Protein, Total 6.3 g/dL (6.4-8.2); Sodium Level 139 mmol/L (136-145)
[2021-07-28] MEDS: levETIRAcetam IV 1,000 MG/100 ML BAG 400 MG IV ×3 (05:45→18:42)
[2021-07-28 05:56] LABS: Atypical Lymphocyte 1+ %; Differential Comment SCANNED; Platelet Estimate ADEQUATE (ADEQ)
--- NOTE | 2021-07-28 06:15 | CON.PCM.CC_ITS ---
Assessment & Plan Assessment/Plan (1) COVID-19: PLAN: RECOMMENDATIONS: 1. Wean supplemental oxygen to maintain saturations at or above 90%. 2. Complete Covid testing. 3. For now, continue remdesivir, Decadron and Lovenox as ordered. 4. Antiepileptics per neurology and hospitalist. 5. Pain management per hospitalist. 6. Awake prone positioning was encouraged. 7. Encourage incentive spirometer use and mobilize patient as tolerated. 8. The patient is medically stable for transfer out of the intensive care unit. IMPRESSIONS: 1. COVID-19 pneumonia with associated hypoxia Although the patient was admitted to the hospital on July 27 with worsening shortness of breath under the pretenses of a COVID-19 infection, the patient does not appear to have been tested here at the hospital. I would recommend that, at a minimum, a rapid antigen test be completed. The patient has already previously been started on remdesivir, along with Decadron and twice daily Lovenox, which will be continued for now. Continue supplemental oxygen to maintain saturations at or above 90%. Given the patient's smoking history, it is reasonable to continue bronchodilators as needed. Awake prone positioning was encouraged. 2. Unspecified seizure disorder The patient apparently has a history of epilepsy with questionable breakthrough seizures during this hospitalization. Her antiepileptic regimen has been augmen greta, following evaluation by neurology. Continue seizure precautions and as needed Ativan. 3. Chronic tobacco dependency I personally spent 3 minutes discussing the deleterious effects of continued tobacco use with the patient, including modalities which could utilize to achieve a smoke-free lifestyle. Nicotine replacement therapy can be offered to the patient while admitted to the hospital. 4. Chronic pain syndrome/paroxysmal atrial fibrillation/questionable history of prior CVA Complicates care, management, recovery and prognosis. Continue home medications as indicated. This note was generated with Winsteration software. It may contain incorrect words, spelling, and punctuation that were not noted in checking the note before signing. HPI Consult Data Date of Consult: 07/28/21 HPI Narrative Reason for Consultation: COVID-19 pneumonia HPI Narrative: The patient is a 51-year-old female, with a history as outlined below, who presented to the emergency department on July 27 with dyspnea, fevers and pleuritic chest pain. The patient reported that her symptoms have been present now for over a week. The patient is vaccinated against coronavirus, having last received the Pfizer vaccine in February, per patient account. The patient was evaluated as well in the emergency department on July 21 with reported pleuritic chest discomfort. At that time, she had reported that she had tested positive via a home test. However, it does not appear that the patient ever had a positive Covid test in our system. She does report a history of seizures as well. She has a current smoking history of 0.5 packs of cigarettes per day. She does not utilize supplemental oxygen at her baseline. She does report chronic pain syndrome, for which she follows on an outpatient basis with Dr. Robledo. On presentation to the emergency department, the patient was noted to be afebrile hemodynamically stable. Laboratory evaluation revealed a D-dimer of 0.76. Chemistry profile was notable for a potassium of 2.8. CRP was elevated at 144. CTA chest showed no evidence for pulmonary embolism. Multifocal ground glass opacities were noted bilaterally. The patient was initially placed on remdesivir and Decadron. There was some question of breakthrough seizure activity, for which she was placed on Keppra. She was also loaded with Dilantin yesterday. The patient was then transferred to the medical intensive care unit. Overnight, the patient has remained clinically stable. She has not had any seizure activity. The patient is alert and appropriately interactive this morning, complaining of chronic low back pain. [facility] Medical History Asthma Brain aneurysm Chronic pain COVID-19 Former smoker GERD (gastroesophageal reflux disease) Kidney disease Kidney stones Migraines Rheumatoid arthritis Seizures Sleep apnea Home Medications fluticasone propionate 2 spray NASAL BID 09/30/16 [History Last Taken 07/26/21] xugnpmah-kft-znyl-FA-lutein 1 tab PO DAILY 03/21/19 [History Last Taken 07/26/21 ] albuterol sulfate 1 - 2 puff INHALATION Q4H PRN PRN #1 inhaler 04/20/19 [Rx Last Taken 06/20/19] omeprazole 40 mg PO DAILY 05/31/19 [History Last Taken 07/26/21] gabapentin 300 mg PO TIDCM #60 cap 06/03/19 [Rx Last Taken 07/26/21] melatonin-pyridoxine HCl (B6) 1 tab PO QHS PRN 06/21/19 [History Last Taken 06/20/19] levetiracetam 1,500 mg PO TID 12/04/19 [History Last Taken 07/26/21] cyclobenzaprine 10 mg PO TID PRN 02/27/20 [History Last Taken Unknown] oxycodone-acetaminophen 1 tab PO Q8H PRN PRN 02/27/20 [History Last Taken Unknown] ondansetron 4 mg PO Q8H PRN PRN #10 tab 09/22/20 [Rx Last Taken Unknown] clindamycin HCl [Cleocin HCl] 300 mg PO Q6H #40 capsule 06/30/21 [Rx Last Taken Unknown] metoclopramide HCl 10 mg PO Q6H PRN #20 tab 07/21/21 [Rx Last Taken Unknown] Allergy/AdvReac Type Severity Reaction Status Date / Time Penicillins Allergy Anaphylaxis Verified 07/21/21 14:12 propoxyphene napsylate Allergy Rash Verified 07/21/21 14:12 [From Darvocet-N 100] hydrocodone bitartrate AdvReac Itching Verified 07/21/21 14:12 [From Vicodin] venom-honey bee AdvReac Chest Verified 07/21/21 14:12 [bee venom (honey bee)] tightness PLASTIC TAPE Allergy blistering Uncoded 07/21/21 14:12 IV contrast AdvReac Vomiting Uncoded 07/21/21 14:12 Surgical History History of appendectomy History of cholecystectomy Social History Smoking Status: Former smoker ROS Constitutional Constitutional: Reports fatigue, headache(s) and malaise Eyes Eyes: Denies blurry vision or change in vision ENT HEENT: Denies dysphagia, epistaxis or hoarseness Cardiovascular Cardiovascular: Reports chest pain and dyspnea Respiratory/Chest Respiratory/Chest: Reports cough, dyspnea and pain on inspiration Gastrointestinal Gastrointestinal: Reports abdominal pain Genitourinary Genitourinary: Denies difficulty urinating or dysuria Musculoskeletal Musculoskeletal: Reports back pain Integumentary Integumentary: Denies lesions, rash or skin ulcer Neurologic Neurologic: Reports seizure-like activity; Denies abnormal gait or abnormal speech Psychiatric Psychiatric: Reports anxiety and depression Endocrine Endocrinology: Reports fatigue Hematologic/Lymphatic Hematologic/Lymphatic: Denies easy bleeding or easy bruising Physical Exam Const alert and no apparent distress General Appearance: cooperative Nutritional Appearance: obese HEENT normocephalic, head/scalp atraumatic and moist oral mucous membranes Eyes PERRL, EOMs intact bilaterally and conjunctivae normal Neck supple General: trachea midline Chest inspection of chest normal Resp Auscultation: diminished lung sounds; Negative for rales, rhonchi or wheezes Cardio regular rate and regular rhythm GI normal to inspection, nondistended, normoactive bowel sounds Extremity no clubbing, cyanosis or edema Skin no rashes or lesions noted Neuro CN's II-XII intact bilaterally, moves all extremities and no focal motor deficits Psych Mood & Affect: anxious Lab / Micro Data Result Diagrams: 07/28/21 04:45 07/28/21 04:45 Labs: Laboratory Results - last 24 hr 07/27/21 11:00: Lactate Dehydrogenase 547 H, Total Creatine Kinase 275 H, C- React Prot Ext Range 144.00 H 07/27/21 11:00: Lactic Acid 1.6 07/27/21 11:00: Procalcitonin 0.22 H 07/27/21 11:00: Phosphorus 2.9 07/27/21 11:00: Sodium 139, Potassium 3.4 L, Chloride 107, Carbon Dioxide 25.0, Anion Gap 7, BUN 17, Creatinine 0.65, Estim Creat Clear Calc 105.81, Est GFR (MDRD) Af Amer 123, Est GFR (MDRD) Non-Af 102, BUN/Creatinine Ratio 26.2 H, Glucose 151 H, Calcium 8.3 L 07/28/21 04:45: WBC 7.0, RBC 4.17 L, Hgb 13.2, Hct 40.1, MCV 96.2, MCH 31.7, MCHC 32.9, RDW Std Deviation 47.1 H, RDW Coeff of Bere 13.2, Plt Count 231, MPV 10.4, Immature Gran % (Auto) 0.900, Neut % (Auto) 75.2 H, Lymph % (Auto) 14.7 L, [place] % (Auto) 6.4, Eos % (Auto) 2.4, Baso % (Auto) 0.4, Absolute Neuts (auto) 5.3, Absolute Lymphs (auto) 1.03, Nucleated RBC % 0.3, Differential Comment SCANNED, Atypical Lymphocytes 1+, Platelet Estimate ADEQUATE 07/28/21 04:45: Sodium 139, Potassium 4.1, Chloride 107, Carbon Dioxide 26.0, Anion Gap 6, BUN 25 H, Creatinine 0.53 L, Estim Creat Clear Calc 129.76, Est GFR (MDRD) Af Amer 156, Est GFR (MDRD) Non-Af 129, BUN/Creatinine Ratio 47.3 H, Glucose 125 H, Calcium 8.6, Total Bilirubin 0.40, AST 102 H, ALT 59 H, Alkaline Phosphatase 92, Total Protein 6.3 L, Albumin 2.1 L, Globulin 4.2, Albumin/Globulin Ratio 0.5 L Micro: Microbiology 07/27/21 09:50 Sputum, Expectorated/Coughed Gram Stain - Final 07/27/21 09:30 Urine, Clean Catch Legionella Antigen - Final 07/27/21 09:30 Urine, Clean Catch Streptococcus pneumoniae Antigen (M - Final Radiology Impression Brain CT 07/27/21 14:59 IMPRESSION: 1. Normal CT brain. 2. Embolized basilar tip. Electronically Signed: Lacie Li MD at 17:22 EST Tel , Service support , Charges/Coding Visit Charges Inpatient E&M: 84443 Init Hosp L3 Behavior Interventions Behavior Intervention: 36844 Smoking Cessation 3-10 min
[2021-07-28] MEDS: Ipratropium/Albuterol Sulfate 3 ML AMPUL.NEB INHALATION ×2 (06:35→19:32)
--- NOTE | 2021-07-28 07:18 | PN.HOSP_ITS ---
Subjective Subjective Patient is a 51-year-old lady including seizure disorder admitted with progressive generalized weakness and body aches and progressive shortness of breath. Diagnosed with COVID-19 pneumonia admitted to regular nursing floor for further management Patient ended up experiencing multiple seizures patient was loaded with Dilantin, stat head CT obtained, SOC neurology consulted and patient transferred to the intensive care unit Objective Data Objective Data Vital Signs: Vital Signs Temp Pulse Resp BP Pulse Ox 97.1 F L 93 23 H 124/69 H 93 07/28/21 00:00 07/28/21 06:35 07/28/21 06:35 07/28/21 04:00 07/28/21 06:35 Oxygen Flow Rate (L/min) 8 Oxygen Delivery Method Nasal Cannula Weight: 91.1 kg Body Mass Index (BMI) 29.5 Intake & Output: Intake and Output for Last 24 Hours 07/26/21 07/27/21 07/28/21 23:59 23:59 23:59 Intake Total 2769.86 / 2769.86 100 / 100 Output Total 600 / 600 Balance 2769.86 / 2769.86 -500 / -500 Lab / Micro Data Result Diagrams: 07/28/21 04:45 07/28/21 04:45 Labs: Laboratory Results - last 24 hr 07/27/21 11:00: Lactate Dehydrogenase 547 H, Total Creatine Kinase 275 H, C- React Prot Ext Range 144.00 H 07/27/21 11:00: Lactic Acid 1.6 07/27/21 11:00: Procalcitonin 0.22 H 07/27/21 11:00: Phosphorus 2.9 07/27/21 11:00: Sodium 139, Potassium 3.4 L, Chloride 107, Carbon Dioxide 25.0, Anion Gap 7, BUN 17, Creatinine 0.65, Estim Creat Clear Calc 105.81, Est GFR (MDRD) Af Amer 123, Est GFR (MDRD) Non-Af 102, BUN/Creatinine Ratio 26.2 H, Glucose 151 H, Calcium 8.3 L 07/28/21 04:45: WBC 7.0, RBC 4.17 L, Hgb 13.2, Hct 40.1, MCV 96.2, MCH 31.7, MCHC 32.9, RDW Std Deviation 47.1 H, RDW Coeff of Bere 13.2, Plt Count 231, MPV 10.4, Immature Gran % (Auto) 0.900, Neut % (Auto) 75.2 H, Lymph % (Auto) 14.7 L, [place] % (Auto) 6.4, Eos % (Auto) 2.4, Baso % (Auto) 0.4, Absolute Neuts (auto) 5.3, Absolute Lymphs (auto) 1.03, Nucleated RBC % 0.3, Differential Comment SCANNED, Atypical Lymphocytes 1+, Platelet Estimate ADEQUATE 07/28/21 04:45: Sodium 139, Potassium 4.1, Chloride 107, Carbon Dioxide 26.0, Anion Gap 6, BUN 25 H, Creatinine 0.53 L, Estim Creat Clear Calc 129.76, Est GFR (MDRD) Af Amer 156, Est GFR (MDRD) Non-Af 129, BUN/Creatinine Ratio 47.3 H, Glucose 125 H, Calcium 8.6, Total Bilirubin 0.40, AST 102 H, ALT 59 H, Alkaline Phosphatase 92, Total Protein 6.3 L, Albumin 2.1 L, Globulin 4.2, Albumin/Globulin Ratio 0.5 L Micro: Microbiology 07/27/21 09:50 Sputum, Expectorated/Coughed Gram Stain - Final 07/27/21 09:30 Urine, Clean Catch Legionella Antigen - Final 07/27/21 09:30 Urine, Clean Catch Streptococcus pneumoniae Antigen (M - Final Radiography Diagnostic Testing: Radiology Impression Brain CT 07/27/21 14:[address]: [address] brain. 2. Embolized basilar tip. Electronically Signed: Lacie Li MD at 17:22 EST Tel , Service support , Physical Exam Narrative GENERAL: cooperative HEENT: Atraumatic; EYES; Anicteric, Normal Conjunctiva NECK; supple, normal thyroid, RESPIRATORY: Diminished to auscultation CARDIOVASCULAR: Regular S1 S2, GI: soft, normoactive bowel sounds, : No Renal angle tenderness; EXTREMITIES: No edema, no clubbing, MUSCULOSKELETAL: no muscle waisting NEURO: Awake; no lateralizing signs. SKIN: No Rash PSYCH; Flat affect Assessment & Plan Assessment/Plan (1) Pneumonia due to COVID-19 virus: PLAN: Patient is a 51-year-old lady including seizure disorder admitted with progressive generalized weakness and body aches and progressive shortness of breath. Diagnosed with COVID-19 pneumonia admitted to regular nursing floor for further management 1. COVID-19 pneumonia ?Admitted to regular nursing floor managed with dexamethasone as well as remdesivir in addition to supplemental oxygen titrated to keep pulse ox greater than 90 2. Mild asthma exacerbation ?Patient is on bronchodilator treatment in addition to Decadron as described ab florecitae 3. Seizure disorder with breakthrough seizures ?Did institute seizure precautions did continue patient antiepilepsy drugs?Keppra 1500 mg 3 times daily -07/28/2021 patient ended up experiencing multiple seizures patient was loaded with Dilantin, stat head CT obtained, SOC neurology consulted and patient transferred to the intensive care unit 4. GERD ?On PPI 5. Paroxysmal A. fib ?Rate controlled 6. Gastroparesis ?Patient is on Reglan 7. Previous history of CVA ?With residual left lower extremity weakness 8. DVT prophylaxis ?Enoxaparin Charges/Coding Visit Charges Inpatient E&M: 74145 Subs Hosp L3
[2021-07-28] MEDS: Fluticasone 0.05% 1 SPRAY NASAL.SRY 2 SPRAY NASAL (08:14)
[2021-07-28] MEDS: Gabapentin 300 MG Capsule PO ×3 (08:15→18:40)
[2021-07-28] MEDS: dexAMETHasone 4 MG Tablet 6 MG PO (08:15)
[2021-07-28] MEDS: guaiFENesin 1,200 MG Tablet 1200 MG PO ×2 (08:16→20:23)
[2021-07-28] MEDS: Pantoprazole Sodium 40 MG Tablet PO (08:16)
[2021-07-28] MEDS: Enoxaparin 30 MG/0.3 ML Syringe SC ×2 (08:16→20:23)
[2021-07-28 10:31] LABS: Probe Check PASS; Specimen Processing Control PASS
[2021-07-28] MEDS: levoFLOXacin IV 750 MG/150 ML BAG 100 MG IV (15:38)
--- NOTE | 2021-07-28 17:48 | NURSING ---
family dropped off bag with snacks and hvac manager that also contained two prescription medications, one including a bottle of Percocet with 13 pills that is prescribed to another patients name. also included a pill bottle of linzess that has 23 pills that was filled on 05/15/22 and . called omar, who did not answer, left message asking to return call. Call placed to daughter tiffany who stated she dropped off the medication and this nurse advised her that we cannot accept that medication and she stated she would flower picker the medications. Tiffany returned to ER and medications given to her at this time.
--- NOTE | 2021-07-28 18:01 | PCS.PANDOC ---
PANDEMIC DOCUMENTATION INITIATED: Date: 07/28/2021 Time: 1500
[2021-07-28] MEDS: Acetaminophen 325 MG Tablet 650 MG PO (20:22)
[2021-07-28] MEDS: oxyCODONE 5 MG Tablet PO (20:23)
[2021-07-28] MEDS: MELATONIN 3 MG TABLET PO (21:47)
[2021-07-29] VITALS (16 sets, daily range): BP systolic 94–121; BP diastolic 53–70; PULSE 85–96; RESP 16–26; TEMP 36.4–37.2; O2SAT 91–98
[2021-07-29] MEDS: levETIRAcetam IV 1,000 MG/100 ML BAG 400 MG IV ×4 (01:27→18:23)
[2021-07-29] MEDS: Ondansetron 4 MG/2 ML Vial IV ×2 (03:33→12:00)
[2021-07-29 07:29] LABS: Absolute Lymphocyte Count 1.61 X10^3/uL (0.83-4.51); Absolute Neutrophil Count 7.2 X10^3/uL (2.0-7.7); Basophil# 0.01 X10^3/uL; Basophil% 0.1 % (0-1); Hematocrit 38.7 % (37-47); Hemoglobin 13.1 g/dL (12.0-15.0); Lymphocyte # 1.61 X10^3/ul (0.83-4.51); Lymphocyte % 17.4 % (19-41); Mean Corp Hgb Conc 33.9 g/dL (32-36); Mean Corpuscular Hgb 32.8 pg (27.0-32.0); Mean Platelet Vol. 9.6 fl (6.2-12.0); Monocyte# 0.36 X10^3/uL; Monocyte% 3.9 % (0-10); NRBC Flagged by Analyzer 0 % (0-5); Neutrophil # 7.21 X10^3/uL (2.7-7.7); POSITIVE MORPHOLOGY YES; Platelet Count 264 K/mm3 (150-450); RBC Distribution Width CV 13.2 % (11.6-14.6); RBC Distribution Width SD 47.2 fl (35.1-43.9); Red Blood Count 3.99 M/mm3 (4.2-5.4); White Blood Count 9.3 K/mm3 (4.4-11.0)
[2021-07-29 07:32] LABS: Differential Indicated SCAN CRITERIA MET
[2021-07-29 08:02] LABS: ALB/GLOB Ratio 0.6 RATIO (0.9-2.4); AST(SGOT) 66 U/L (15-37); Alanine Aminotransfer ALT/SGPT 55 U/L (13-56); Albumin, Serum 2.2 g/dL (3.2-5.0); Alkaline Phosphatase 90 U/L (45-117); Anion Gap 8 (5-15); BUN 15 mg/dL (7-18); Chloride 108 mmol/L (98-107); Creatinine, Serum 0.63 mg/dL (0.55-1.02); EST Glomerular Filtration Rate 106 mL/min (>60); Est Glom Filt Rate - Afr Amer 128 mL/min (>60); Estimated Creatinine Clearance 109.17 ml/min; Globulin 3.8 g/dL (2.2-4.2); Glucose 78 mg/dL (74-106); Potassium 2.9 mmol/L (3.5-5.1); Sodium Level 143 mmol/L (136-145)
[2021-07-29] MEDS: guaiFENesin 1,200 MG Tablet 1200 MG PO ×2 (11:59→20:42)
[2021-07-29] MEDS: Acetaminophen 325 MG Tablet 650 MG PO ×2 (11:59→18:36)
[2021-07-29] MEDS: Multivitamins,Ther W-Minerals Tablet 1 TABLET PO (11:59)
[2021-07-29] MEDS: Gabapentin 300 MG Capsule PO ×2 (11:59→18:37)
[2021-07-29] MEDS: dexAMETHasone 4 MG Tablet 6 MG PO (12:00)
[2021-07-29] MEDS: 0.9% Saline Lock 10 ML Syringe IV (12:00)
[2021-07-29] MEDS: Pantoprazole Sodium 40 MG Tablet PO (12:00)
[2021-07-29] MEDS: oxyCODONE 5 MG Tablet PO ×2 (12:00→18:36)
[2021-07-29] MEDS: Enoxaparin 30 MG/0.3 ML Syringe SC ×2 (12:00→20:42)
[2021-07-29] MEDS: levoFLOXacin IV 750 MG/150 ML BAG 100 MG IV (12:19)
[2021-07-29] MEDS: Ipratropium/Albuterol Sulfate 3 ML AMPUL.NEB INHALATION ×2 (13:56→21:54)
--- NOTE | 2021-07-29 14:52 | PN.CC_ITS ---
Assessment & Plan Assessment/Plan (1) COVID-19: PLAN: RECOMMENDATIONS: 1. Wean supplemental oxygen to maintain saturations at or above 90%. 2. Continue Levaquin 3. For now, continue remdesivir (07/31/2021), Decadron (08/06/2021) and Lovenox as ordered. 4. Antiepileptics per neurology and hospitalist. 5. Pain management per hospitalist. 6. Awake prone positioning was encouraged. 7. Encourage incentive spirometer use and mobilize patient as tolerated. 8. Attempt to obtain home CPAP machine IMPRESSIONS: 1. COVID-19 pneumonia with associated hypoxia with superimposed pneumococcus and H. influenzae pneumonia/LAURENCE Patient verified to have COVID-19. Patient also has a sputum culture showing pneumococcus and H. influenzae pneumonia. Patient would benefit from initiation of baseline LAURENCE therapy. Levaquin should be sufficient for antibiotics. Could consider infectious disease evaluation. Continue to wean oxygen as tolerated. 2. Unspecified seizure disorder The patient apparently has a history of epilepsy with questionable breakthrough seizures during this hospitalization. Her antiepileptic regimen has been augmented, following evaluation by neurology. Continue seizure prec autions and as needed Ativan. 3. Chronic tobacco dependency Encourage cessation. Nicotine replacement therapy can be offered to the patient while admitted to the hospital. 4. Chronic pain syndrome/paroxysmal atrial fibrillation/questionable history of prior CVA Complicates care, management, recovery and prognosis. Continue home medications as indicated. Subjective Subjective Patient did okay overnight. Patient continues to report a productive cough. No chest pain, nausea or vomiting is been reported. Patient was found sleeping with oxygen out of her nose. Did witness apnea while sleeping. Patient had reported that she had a CPAP at home, but that no one would be able to bring this in for use. Patient is unaware of her settings. Objective Data Objective Data Vital Signs: Vital Signs Temp Pulse Resp BP Pulse Ox 36.9 C 92 20 H 121/56 H 93 07/29/21 11:54 07/29/21 13:58 07/29/21 13:58 07/29/21 11:54 07/29/21 11:54 Oxygen Flow Rate (L/min) 4 Oxygen Delivery Method Nasal Cannula Weight: 90.3 kg Body Mass Index (BMI) 29.5 Intake & Output: Intake and Output for Last 24 Hours 07/27/21 07/28/21 07/29/21 23:59 23:59 23:59 Intake Total 2769.86 / 2769.86 1150 / 1150 1100 / 1100 Output Total 850 / 850 Balance 2769.86 / 2769.86 300 / 300 1100 / 1100 Lab / Micro Data Result Diagrams: 07/29/21 07:02 07/29/21 07:02 Labs: Laboratory Results - last 24 hr 07/29/21 07:02: WBC 9.3, RBC 3.99 L, Hgb 13.1, Hct 38.7, MCV 97.0, MCH 32.8 H, MCHC 33.9, RDW Std Deviation 47.2 H, RDW Coeff of Bere 13.2, Plt Count 264, MPV 9.6, Immature Gran % (Auto) 0.600, Neut % (Auto) 78.0 H, Lymph % (Auto) 17.4 L, [place] % (Auto) 3.9, Eos % (Auto) 0.0, Baso % (Auto) 0.1, Absolute Neuts (auto) 7.2, Absolute Lymphs (auto) 1.61, Nucleated RBC % 0 07/29/21 07:02: Sodium 143, Potassium 2.9 L, Chloride 108 H, Carbon Dioxide 27.0, Anion Gap 8, BUN 15, Creatinine 0.63, Estim Creat Clear Calc 109.17, Est GFR (MDRD) Af Amer 128, Est GFR (MDRD) Non-Af 106, BUN/Creatinine Ratio 24.0 H, Glucose 78, Calcium 8.0 L, Total Bilirubin 0.40, AST 66 H, ALT 55, Alkaline Phosphatase 90, Total Protein 6.0 L, Albumin 2.2 L, Globulin 3.8, Albumin/Globul in Ratio 0.6 L Micro: Microbiology 07/27/21 09:50 Sputum, Expectorated/Coughed Gram Stain - Final 07/27/21 09:50 Sputum, Expectorated/Coughed Respiratory Culture - Preliminary Streptococcus pneumoniae Haemophilus influenzae 07/27/21 11:00 Blood Culture (Wb) - No Site/Description Given Blood Culture - Preliminary No growth in 48 hours. 07/27/21 06:50 Blood Culture (Wb) - No Site/Description Given Blood Culture - Preliminary No growth in 48 hours. 07/27/21 09:30 Urine, Clean Catch Legionella Antigen - Final 07/27/21 09:30 Urine, Clean Catch Streptococcus pneumoniae Antigen (M - Final Physical Exam Const well nourished Constitutional Narrative: Apnea noted with sleeping General Appearance: cooperative Nutritional Appearance: obese HEENT normocephalic, head/scalp atraumatic and moist oral mucous membranes Eyes PERRL, EOMs intact bilaterally and conjunctivae normal Neck supple General: trachea midline Chest inspection of chest normal Chest: symmetrical chest wall rise; Negative for crepitus Resp Auscultation: diminished lung sounds; Negative for rales, rhonchi or wheezes Cardio regular rate and regular rhythm GI normal to inspection, nondistended, normoactive bowel sounds Extremity no clubbing, cyanosis or edema Skin no rashes or lesions noted Neuro CN's II-XII intact bilaterally, moves all extremities and no focal motor deficits Psych Mood & Affect: anxious Charges/Coding Visit Charges Inpatient E&M: 84993 Subs Hosp L2
--- NOTE | 2021-07-29 15:46 | PN.HOSP_ITS ---
Subjective Subjective Follow-up on acute hypoxic respiratory failure/acute COVID-19 pneumonia/breakthrough seizures: Patient was seen and examined. She is currently on 4 L of oxygen. Denied any new complaints. Objective Data Objective Data Vital Signs: Vital Signs Temp Pulse Resp BP Pulse Ox 98.5 F 92 20 H 121/56 H 93 07/29/21 11:54 07/29/21 13:58 07/29/21 13:58 07/29/21 11:54 07/29/21 11:54 Oxygen Flow Rate (L/min) 4 Oxygen Delivery Method Nasal Cannula Weight: 90.3 kg Body Mass Index (BMI) 29.5 Intake & Output: Intake and Output for Last 24 Hours 07/27/21 07/28/21 07/29/21 23:59 23:59 23:59 Intake Total 2769.86 / 2769.86 1150 / 1150 1100 / 1100 Output Total 850 / 850 Balance 2769.86 / 2769.86 300 / 300 1100 / 1100 Lab / Micro Data Result Diagrams: 07/29/21 07:02 07/29/21 07:02 Labs: Laboratory Results - last 24 hr 07/29/21 07:02: WBC 9.3, RBC 3.99 L, Hgb 13.1, Hct 38.7, MCV 97.0, MCH 32.8 H, MCHC 33.9, RDW Std Deviation 47.2 H, RDW Coeff of Bere 13.2, Plt Count 264, MPV 9.6, Immature Gran % (Auto) 0.600, Neut % (Auto) 78.0 H, Lymph % (Auto) 17.4 L, [place] % (Auto) 3.9, Eos % (Auto) 0.0, Baso % (Auto) 0.1, Absolute Neuts (auto) 7.2, Absolute Lymphs (auto) 1.61, Nucleated RBC % 0 07/29/21 07:02: Sodium 143, Potassium 2.9 L, Chloride 108 H, Carbon Dioxide 27.0, Anion Gap 8, BUN 15, Creatinine 0.63, Estim Creat Clear Calc 109.17, Est GFR (MDRD) Af Amer 128, Est GFR (MDRD) Non-Af 106, BUN/Creatinine Ratio 24.0 H, Glucose 78, Calcium 8.0 L, Total Bilirubin 0.40, AST 66 H, ALT 55, Alkaline Phosphatase 90, Total Protein 6.0 L, Albumin 2.2 L, Globulin 3.8, Albumin/Globulin Ratio 0.6 L 07/29/21 07:02: Magnesium 2.0 Micro: Microbiology 07/27/21 09:50 Sputum, Expectorated/Coughed Gram Stain - Final 07/27/21 09:50 Sputum, Expectorated/Coughed Respiratory Culture - Preliminar y Streptococcus pneumoniae Haemophilus influenzae 07/27/21 11:00 Blood Culture (Wb) - No Site/Description Given Blood Culture - Preliminary No growth in 48 hours. 07/27/21 06:50 Blood Culture (Wb) - No Site/Description Given Blood Culture - Preliminary No growth in 48 hours. 07/27/21 09:30 Urine, Clean Catch Legionella Antigen - Final 07/27/21 09:30 Urine, Clean Catch Streptococcus pneumoniae Antigen (M - Final Physical Exam Narrative Physical exam: General: Alert, Oriented x3, Cooperative, No apparent distress, Well developed, on 4 L of oxygen HEENT: Atraumatic Oral: Moist Mucosa Neck: Supple Lungs: Diminished to auscultation Cardiovascular: HS I+II, regular, no murmurs Abdomen: Bowel Sounds Present, Soft, Non Tender Extremities: No edema Assessment & Plan Assessment/Plan (1) Breakthrough seizure: (2) Acute respiratory failure with hypoxia: PLAN: 1. Acute hypoxic respiratory failure secondary to acute COVID-19 pneumonia Patient is on 4 L of oxygen Continue on dexamethasone and remdesivir 2. Hypokalemia, replaced, recheck in a.m. 3. Breakthrough seizures in a patient with seizure disorder Continue on Keppra 4. Rest of her chronic medical condition including GERD, proximal A. fib, gastroparesis, history of CVA- all remained stable Meds reviewed Charges/Coding Visit Charges Inpatient E&M: 89289 Subs Hosp L2
[2021-07-29] MEDS: Potassium Chloride Oral Tablet 20 MEQ 40 MEQ PO ×2 (18:36→20:42)
[2021-07-29] MEDS: Potassium Chloride 10mEq/100mL 10 MEQ/100 ML IV.SOLN. 100 MEQ IV BOLUS (18:39)
[2021-07-30] VITALS (14 sets, daily range): BP systolic 111–130; BP diastolic 58–75; PULSE 72–101; RESP 18–26; TEMP 36.7–37; O2SAT 84–99
[2021-07-30] MEDS: levETIRAcetam IV 1,000 MG/100 ML BAG 400 MG IV ×3 (00:04→11:56)
[2021-07-30] MEDS: Ipratropium/Albuterol Sulfate 3 ML AMPUL.NEB INHALATION ×3 (06:54→20:57)
[2021-07-30 07:13] LABS: Absolute Lymphocyte Count 1.12 X10^3/uL (0.83-4.51); Absolute Neutrophil Count 8.6 X10^3/uL (2.0-7.7); Basophil# 0.02 X10^3/uL; Basophil% 0.2 % (0-1); Hematocrit 38.1 % (37-47); Hemoglobin 12.6 g/dL (12.0-15.0); Lymphocyte # 1.12 X10^3/ul (0.83-4.51); Mean Corp Hgb Conc 33.1 g/dL (32-36); Mean Corpuscular Hgb 31.7 pg (27.0-32.0); Mean Corpuscular Volume 95.7 fL (81-99); Mean Platelet Vol. 9.8 fl (6.2-12.0); Monocyte# 0.41 X10^3/uL; NRBC Flagged by Analyzer 0 % (0-5); Neutrophil # 8.57 X10^3/uL (2.7-7.7); Neutrophil % 84.1 % (47-70); Platelet Count 296 K/mm3 (150-450); RBC Distribution Width CV 13.1 % (11.6-14.6); RBC Distribution Width SD 46.4 fl (35.1-43.9); Red Blood Count 3.98 M/mm3 (4.2-5.4); White Blood Count 10.2 K/mm3 (4.4-11.0)
[2021-07-30 07:33] LABS: ALB/GLOB Ratio 0.5 RATIO (0.9-2.4); AST(SGOT) 47 U/L (15-37); Alanine Aminotransfer ALT/SGPT 46 U/L (13-56); Albumin, Serum 2.1 g/dL (3.2-5.0); Alkaline Phosphatase 90 U/L (45-117); Anion Gap 10 (5-15); BUN 7 mg/dL (7-18); Chloride 107 mmol/L (98-107); Creatinine, Serum 0.47 mg/dL (0.55-1.02); EST Glomerular Filtration Rate 149 mL/min (>60); Est Glom Filt Rate - Afr Amer 180 mL/min (>60); Estimated Creatinine Clearance 146.33 ml/min; Globulin 4.1 g/dL (2.2-4.2); Glucose 77 mg/dL (74-106); Potassium 3.4 mmol/L (3.5-5.1); Protein, Total 6.2 g/dL (6.4-8.2); Sodium Level 142 mmol/L (136-145)
[2021-07-30] MEDS: Pantoprazole Sodium 40 MG Tablet PO (09:33)
[2021-07-30] MEDS: dexAMETHasone 4 MG Tablet 6 MG PO (09:34)
[2021-07-30] MEDS: Enoxaparin 30 MG/0.3 ML Syringe SC ×2 (09:34→20:49)
[2021-07-30] MEDS: Multivitamins,Ther W-Minerals Tablet 1 TABLET PO (09:34)
[2021-07-30] MEDS: Gabapentin 300 MG Capsule PO ×3 (09:34→17:33)
[2021-07-30] MEDS: Potassium Chloride Oral Tablet 20 MEQ 40 MEQ PO (09:34)
[2021-07-30] MEDS: guaiFENesin 1,200 MG Tablet 1200 MG PO ×2 (09:34→20:49)
--- NOTE | 2021-07-30 09:59 | PCM.PN.INT ---
Assessment & Plan Assessment/Plan (1) COVID-19: PLAN: RECOMMENDATIONS: 1. Wean supplemental oxygen to maintain saturations at or above 90%. 2. Continue Levaquin to complete a 5-day course 3. For now, continue remdesivir (07/31/2021), Decadron (08/06/2021) and Lovenox as ordered. 4. Antiepileptics per neurology and hospitalist. 5. Pain management per hospitalist. 6. Obtain room air walking oximetry 7. Encourage incentive spirometer use and mobilize patient as tolerated. 8. Attempt to obtain home CPAP machine IMPRESSIONS: 1. COVID-19 pneumonia with associated hypoxia with superimposed pneumococcus and H. influenzae pneumonia/LAURENCE Patient verified to have COVID-19. Patient also has a sputum culture showing pneumococcus and H. influenzae pneumonia. Patient would benefit from initiation of baseline LAURENCE therapy. Levaquin should be sufficient for antibiotics to complete a 5-day course. Could consider infectious disease evaluation. Continue to wean oxygen as tolerated. If patient able to tolerate ambulation on 6 L or less, potential discharge from pulmonary perspective. Patient will need to follow-up in our office with nurse practitioner in 4 to 6 weeks to reevaluate. Did stressed to the patient the importance of using supplemental oxygen to avoid future complications. 2. Unspecified seizure disorder The patient apparently has a history of epilepsy with questionable breakthrough seizures during this hospitalization. Her antiepileptic regimen has been augmented, following evaluation by neurology. Continue seizure precautions and as needed Ativan. 3. Chronic tobacco dependency Encourage cessation. Nicotine replacement therapy can be offered to the patient while admitted to the hospital. 4. Chronic pain syndrome/paroxysmal atrial fibrillation/questionable history of prior CVA Complicates care, management, recovery and prognosis. Continue home medications as indicated. Subjective Subjective Patient once again found off of supplemental oxygen saturating 88%. Patient was reporting headache and body aches. No chest pain was reported. Patient is reporting a cough that is intermittently productive. Patient's saturation improved to 94% on 3 L Objective Data Objective Data Vital Signs: Vital Signs Temp Pulse Resp BP Pulse Ox 36.7 C 95 18 130/58 H 90 07/30/21 09:29 07/30/21 09:29 07/30/21 09:29 07/30/21 09:29 07/30/21 09:29 Oxygen Flow Rate (L/min) [ 2 AMBULATING with Oxygen #1] Oxygen Flow Rate (L/min) [ 0 AMBULATING on Room Air] Oxygen Flow Rate (L/min) [At 0 REST on Room Air] Oxygen Flow Rate (L/min) 3 Oxygen Delivery Method Nasal Cannula Weight: 91.2 kg Body Mass Index (BMI) 29.5 Intake & Output: Intake and Output for Last 24 Hours 07/28/21 07/29/21 07/30/21 23:59 23:59 23:59 Intake Total 1150 / 1150 1790 / 1790 200 / 200 Output Total 850 / 850 Balance 300 / 300 1790 / 1790 200 / 200 Lab / Micro Data Result Diagrams: 07/30/21 06:26 07/30/21 06:26 Labs: Laboratory Results - last 24 hr 07/29/21 07:02: Magnesium 2.0 07/30/21 06:26: WBC 10.2, RBC 3.98 L, Hgb 12.6, Hct 38.1, MCV 95.7, MCH 31.7, MCHC 33.1, RDW Std Deviation 46.4 H, RDW Coeff of Bere 13.1, Plt Count 296, MPV 9.8, Immature Gran % (Auto) 0.700, Neut % (Auto) 84.1 H, Lymph % (Auto) 11.0 L, [place] % (Auto) 4.0, Eos % (Auto) 0.0, Baso % (Auto) 0.2, Absolute Neuts (auto) 8.6 H, Absolute Lymphs (auto) 1.12, Nucleated RBC % 0 07/30/21 06:26: Sodium 142, Potassium 3.4 L, Chloride 107, Carbon Dioxide 25.0, Anion Gap 10, BUN 7, Creatinine 0.47 L, Estim Creat Clear Calc 146.33, Est GFR (MDRD) Af Amer 180, Est GFR (MDRD) Non-Af 149, BUN/Creatinine Ratio 15.0, Glucose 77, Calcium 8.0 L, Total Bilirubin 0.50, AST 47 H, ALT 46, Alkaline Phosphatase 90, Total Protein 6.2 L, Albumin 2.1 L, Globulin 4.1, Albumin/Globulin Ratio 0.5 L Micro: Microbiology 07/27/21 09:50 Sputum, Expectorated/Coughed Gram Stain - Final 07/27/21 09:50 Sputum, Expectorated/Coughed Respiratory Culture - Final Streptococcus pneumoniae Haemophilus influenzae 07/27/21 11:00 Blood Culture (Wb) - No Site/Description Given Blood Culture - Preliminary No growth in 48 hours. 07/27/21 06:50 Blood Culture (Wb) - No Site/Description Given Blood Culture - Preliminary No growth in 48 hours. 07/27/21 09:30 Urine, Clean Catch Legionella Antigen - Final 07/27/21 09:30 Urine, Clean Catch Streptococcus pneumoniae Antigen (M - Final Physical Exam Const well nourished Constitutional Narrative: Found without supplemental oxygen in place General Appearance: cooperative Nutritional Appearance: obese HEENT normocephalic, head/scalp atraumatic and moist oral mucous membranes Eyes PERRL, EOMs intact bilaterally and conjunctivae normal Neck supple General: trachea midline Chest inspection of chest normal Chest: symmetrical chest wall rise; Negative for crepitus Resp Auscultation: diminished lung sounds; Negative for rales, rhonchi or wheezes Cardio regular rate and regular rhythm GI normal to inspection, nondistended, normoactive bowel sounds Extremity no clubbing, cyanosis or edema Skin no rashes or lesions noted Neuro CN's II-XII intact bilaterally, moves all extremities and no focal motor deficits Psych Mood & Affect: anxious Charges/Coding Visit Charges Inpatient E&M: 28261 Subs Hosp L2
[2021-07-30] MEDS: Loperamide 2 MG Capsule PO (11:56)
--- NOTE | 2021-07-30 16:46 | PN.HOSP_ITS ---
Subjective Subjective Follow-up on acute hypoxic respiratory failure/acute COVID-19 pneumonia/breakthrough seizures: Patient was seen and examined. She is currently on 3 L of oxygen. She has persistent diarrhea. Multiple times overnight. Objective Data Objective Data Vital Signs: Vital Signs Temp Pulse Resp BP Pulse Ox 98.1 F 89 22 H 130/58 H 90 07/30/21 09:29 07/30/21 13:21 07/30/21 13:21 07/30/21 09:29 07/30/21 15:00 Oxygen Flow Rate (L/min) [ 2 AMBULATING with Oxygen #1] Oxygen Flow Rate (L/min) [ 0 AMBULATING on Room Air] Oxygen Flow Rate (L/min) [At 0 REST on Room Air] Oxygen Flow Rate (L/min) 3 Oxygen Delivery Method Nasal Cannula Weight: 91.2 kg Body Mass Index (BMI) 29.5 Intake & Output: Intake and Output for Last 24 Hours 07/28/21 07/29/21 07/30/21 23:59 23:59 23:59 Intake Total 1150 / 1150 1790 / 1790 540 / 540 Output Total 850 / 850 400 / 400 Balance 300 / 300 1790 / 1790 140 / 140 Lab / Micro Data Result Diagrams: 07/30/21 06:26 07/30/21 06:26 Labs: Laboratory Results - last 24 hr 07/30/21 06:26: WBC 10.2, RBC 3.98 L, Hgb 12.6, Hct 38.1, MCV 95.7, MCH 31.7, MCHC 33.1, RDW Std Deviation 46.4 H, RDW Coeff of Bere 13.1, Plt Count 296, MPV 9.8, Immature Gran % (Auto) 0.700, Neut % (Auto) 84.1 H, Lymph % (Auto) 11.0 L, [place] % (Auto) 4.0, Eos % (Auto) 0.0, Baso % (Auto) 0.2, Absolute Neuts (auto) 8.6 H, Absolute Lymphs (auto) 1.12, Nucleated RBC % 0 07/30/21 06:26: Sodium 142, Potassium 3.4 L, Chloride 107, Carbon Dioxide 25.0, Anion Gap 10, BUN 7, Creatinine 0.47 L, Estim Creat Clear Calc 146.33, Est GFR (MDRD) Af Amer 180, Est GFR (MDRD) Non-Af 149, BUN/Creatinine Ratio 15.0, Glucose 77, Calcium 8.0 L, Total Bilirubin 0.50, AST 47 H, ALT 46, Alkaline Phosphatase 90, Total Protein 6.2 L, Albumin 2.1 L, Globulin 4.1, Albumin/Globulin Ratio 0.5 L Micro: Microbiology 07/27/21 09:50 Sputum, Expectorated/Coughed Gram Stain - Final 07/27/21 09:50 Sputum, Expectorated/Coughed Respiratory Culture - Final Streptococcus pneumoniae Haemophilus influenzae 07/27/21 11:00 Blood Culture (Wb) - No Site/Description Given Blood Culture - Preliminary No growth in 48 hours. 07/27/21 06:50 Blood Culture (Wb) - No Site/Description Given Blood Culture - Preliminary No growth in 48 hours. 07/27/21 09:30 Urine, Clean Catch Legionella Antigen - Final 07/27/21 09:30 Urine, Clean Catch Streptococcus pneumoniae Antigen (M - Final Physical Exam Narrative Physical exam: General: Alert, Oriented x3, Cooperative, No apparent distress, Well developed, on 4 L of oxygen HEENT: Atraumatic Oral: Moist Mucosa Neck: Supple Lungs: Diminished to auscultation Cardiovascular: HS I+II, regular, no murmurs Abdomen: Bowel Sounds Present, Soft, Non Tender Extremities: No edema Assessment & Plan Assessment/Plan (1) Breakthrough seizure: (2) Acute respiratory failure with hypoxia: PLAN: 1. Acute hypoxic respiratory failure secondary to acute COVID-19 pneumonia Patient is on 3-4 L of oxygen Continue on dexamethasone and remdesivir 2. Hypokalemia, replaced, recheck in a.m. 3. Breakthrough seizures in a patient with seizure disorder Continue on Keppra 4. Rest of her chronic medical condition including GERD, proximal A. fib, gastroparesis, history of CVA- all remained stable Meds reviewed Charges/Coding Visit Charges Inpatient E&M: 12831 Subs Hosp L2
[2021-07-30] MEDS: Fluticasone 0.05% 1 SPRAY NASAL.SRY 2 SPRAY NASAL (20:48)
[2021-07-31 03:21] VITALS: PULSE 86
--- NOTE | 2021-07-31 04:00 | NURSING ---
Pt called to pick her up. Notified staff that she was leaving because the bed was uncomfortable and she wanted to sleep in her own bed. AMA paperwork was presented to patient and patient signed.
--- NOTE | 2021-07-31 05:31 | NURSING ---
Attempted to call patient and notify of belongings found in room after pt left ama. Cell phone on file is not correct. Called pt significant other Jeff, who answered, and informed him of the belongings. He will let pt know.
== END 2021-07-31 04:10 | disposition left against medical advice (07) | DRG 177 ==
LOC: ED 07-27 04:32 → MS3 07-27 04:38 → ICU 07-27 15:02 → PCU 07-29 07:20 → ICU 07-29 13:23
PROVIDERS: Internal Medicine; Admitting Provider Internal Medicine; Emergency Provider Emergency Medicine; PCP Family Medicine; Visit Provider Internal Medicine
DX: U07.1 COVID-19 (principal); J12.82 Pneumonia due to coronavirus disease 2019; J96.01 Acute respiratory failure with hypoxia; J13 Pneumonia due to Streptococcus pneumoniae; J14 Pneumonia due to Hemophilus influenzae; A08.39 Other viral enteritis; G40.919 Epilepsy, unspecified, intractable, without status epilepticus; J45.901 Unspecified asthma with (acute) exacerbation; G43.909 Migraine, unspecified, not intractable, without status migrainosus; E87.6 Hypokalemia; E86.0 Dehydration; K31.84 Gastroparesis; K21.9 Gastro-esophageal reflux disease without esophagitis; M06.9 Rheumatoid arthritis, unspecified; I48.0 Paroxysmal atrial fibrillation; I67.1 Cerebral aneurysm, nonruptured; I25.2 Old myocardial infarction; I69.344 Monoplegia of lower limb following cerebral infarction affecting left non-dominant side; L30.9 Dermatitis, unspecified; M54.50 Low back pain, unspecified; G89.4 Chronic pain syndrome; G47.33 Obstructive sleep apnea (adult) (pediatric); F43.10 Post-traumatic stress disorder, unspecified; Z79.899 Other long term (current) drug therapy; Z87.891 Personal history of nicotine dependence; Z86.19 Personal history of other infectious and parasitic diseases; Z53.29 Procedure and treatment not carried out because of patient's decision for other reasons
CPT/HCPCS: 36415; 70450; 71045; 71275; 80048; 80053; 82550; 83605; 83615; 83735; 84100; 84145; 84484; 85025; 85379; 85610; 85730; 86140; 87040; 87070; 87077; 87186; 87205; 87449; 87635; 93005; 94640; 94667; 94668; 97161; 97166; 99285; 99406; J7030; J7040; J7050; J7120; Q9967; U0005; A4216; J2405; U0003

== ENCOUNTER 2022-01-27 20:05 | Emergency (ER) | payer MEDICARE, MEDICAID, SELFPAY ==
[2022-01-27 20:06] VITALS: BP 171/96; PULSE 95; RESP 16; TEMP 36.8; O2SAT 95; BMI 28.0
--- NOTE | 2022-01-27 20:16 | EX.ED.DYSGE1 ---
HPI History of Present Illness Chief Complaint: Fever Detail of Chief Complaint: Temperature documented to 103.9 respiratory and GI symptoms Informant: patient Onset/Context/Timing Onset: Days (3 days ago developed nausea, vomiting and diarrhea) and Weeks (Onset of illness 2 weeks ago) Context: Sudden Onset Timing: Continuous and Waxes and wanes Quality: Initially respiratory now respiratory and GI Location: Per HPI Current Severity: Mild Maximum Severity: Moderate Worsened by: Dyspnea on exertion and nausea and vomiting with drinking liquids or eating Relieved by: Nothing Associated Symptoms Associated Symptoms: Headache, upper respiratory symptoms, documented fever Narrative Narrative: Patient is a 52-year-old woman who was a smoker. She quit 3 years ago. Start the age of 14. She states her illness started 2 weeks ago with fever and chills. Predominately she had runny nose, congestion and sore throat and cough. The cough is nonproductive. She has had wheezing. She denies history of COPD or asthma. She states over the last 3 days she has vomited 8-10 times per day and has had 5-6 loose stools. She has not noted blood or mucus in the stool. The stool is not black or maroon either. She does complain of thirst and dry mouth. She feels weak. She does not endorse orthostatic symptoms. She denies urologic symptoms. She has had no ill contacts. She has been vaccinated for the flu and COVID. She has had 6 negative COVID tests over the last 2 weeks. Prior similar symptoms: No Recent Illness/Hospitalization: No PFSH PFSH Medical History Asthma Brain aneurysm Chronic pain COVID-19 Former smoker GERD (gastroesophageal reflux disease) Kidney disease Kidney stones Migraines Rheumatoid arthritis Seizures Sleep apnea Home Medications fluticasone propionate 2 spray NASAL BID 09/30/16 [History Last Taken 07/26/21] accyqsds-vlg-ftjl-FA-lutein 1 tab PO DAILY 03/21/19 [History Last Taken 07/26/21] albuterol sulfate 1 - 2 puff INHALATION Q4H PRN PRN #1 inhaler 04/20/19 [Rx Last Taken 06/20/19] omeprazole 40 mg PO DAILY 05/31/19 [History Last Taken 07/26/21] gabapentin 300 mg PO TIDCM #60 cap 06/03/19 [Rx Last Taken 07/26/21] melatonin-pyridoxine HCl (B6) 1 tab PO QHS PRN 06/21/19 [History Last Taken 06/20/19] levetiracetam 1,500 mg PO TID 12/04/19 [History Last Taken 07/26/21] cyclobenzaprine 10 mg PO TID PRN 02/27/20 [History Last Taken Unknown] oxycodone-acetaminophen 1 tab PO Q8H PRN PRN 02/27/20 [History Last Taken Unknown] ondansetron 4 mg PO Q8H PRN PRN #10 tab 09/22/20 [Rx Last Taken Unknown] clindamycin HCl [Cleocin HCl] 300 mg PO Q6H #40 capsule 06/30/21 [Rx Last Taken Unknown] metoclopramide HCl 10 mg PO Q6H PRN #20 tab 07/21/21 [Rx Last Taken Unknown] albuterol sulfate [Ventolin HFA] 2 puff INHALATION Q4H PRN PRN #1 inhaler 01/27/22 [Rx Last Taken Unknown] doxycycline monohydrate 100 mg PO BID #10 capsule 01/27/22 [Rx Last Taken Unknown] prednisone 60 mg PO DAILY #15 tablet 01/27/22 [Rx Last Taken Unknown] Allergy/AdvReac Type Severity Reaction Status Date / Time Penicillins Allergy Anaphylaxis Verified 07/21/21 14:12 propoxyphene napsylate Allergy Rash Verified 07/21/21 14:12 [From Darvocet-N 100] hydrocodone bitartrate AdvReac Itching Verified 07/21/21 14:12 [From Vicodin] venom-honey bee AdvReac Chest Verified 07/21/21 14:12 [bee venom (honey bee)] tightness PLASTIC TAPE Allergy blistering Uncoded 07/21/21 14:12 IV contrast AdvReac Vomiting Uncoded 07/21/21 14:12 Surgical History History of appendectomy History of cholecystectomy Social History (Updated 01/27/22 @ 20:[address] Davon Parson MD) household members: none Smoking Status: Former smoker substance use type: does not use ROS ROS ED Constitutional Constitutional ED: Reports chills, fever(s) and sweats; Denies weight loss Eyes Eyes: Denies blurry vision, change in vision or diplopia ENT ENT ED: Reports ear pain, rhinorrhea and sore throat Cardiovascular Cardiovascular: Denies chest pain, orthopnea, palpitations, paroxysmal nocturnal dyspnea or racing heartbeat Respiratory/Chest Respiratory/Chest: Reports cough, dyspnea, dyspnea on exertion and sputum; Denies orthopnea or paroxysmal nocturnal dyspnea Gastrointestinal Gastrointestinal: Reports abdominal pain, diarrhea, nausea and vomiting; Denies constipation or melena Genitourinary Genitourinary ED: Denies dysuria, hematuria or urinary frequency Musculoskeletal Musculoskeletal: Denies arthralgias, back pain, myalgias or neck pain Integumentary Denies rash Neurologic Neurologic: Reports headache(s) and weakness; Denies paresthesias Psychiatric Psychiatric: Denies anxiety or depression Endocrine Endocrinology: Denies polydipsia, polyphagia or polyuria EXAM Physical Exam Const Vital Signs: 01/27/22 20:06 Temperature 98.2 F Temperature Source Temporal Pulse Rate 95 Respiratory Rate 16 Blood Pressure 171/96 H Blood Pressure Mean 121 Pulse Ox 95 Oxygen Delivery Method Room Air Positive well nourished and well developed General Appearance ED: well developed; Negative for cyanotic, diaphoretic, NAD or pallor HEENT Reports TM's clear and dry mucous membranes; Denies moist mucous membranes HEENT Narrative: Ears normal. Nares patent with clear discharge. Uvula midline. There is no erythema or exudate of the posterior pharynx. Negative for trauma or tenderness Tympanic Membrane ED: Yes TM's clear Mouth ED: Yes dry mucous membranes Mouth: dry mucous membranes Eyes PERRL and EOMs intact bilaterally General Eye ED: Negative for pale conjunctiva or scleral icterus Neck no lymphadenopathy, supple and no JVD Chest Wall inspection of chest normal Resp normal respiratory effort and No clear to auscultation bilaterally Resp Narrative: There is egophony posteriorly right and left lower lobe region. Auscultation: rhonchi lower bilaterally, wheezes expiratory wheezes and scattered wheezes and diminished lung sounds Cardio regular rhythm, S1 normal heart sound, S2 normal heart sound and no murmurs Rate: tachycardic GI normal to inspection, nondistended, normoactive bowel sounds, non-tender and non-distended Palpation: soft Back/Spine no CVA tenderness Cervical Spine: Negative for cervical spine tenderness Thoracic Spine / Upper Back: Negative for thoracic spinal tenderness or paraspinal muscle tenderness Extremity normal to inspection General Extremety ED: Negative for edema or tenderness General Extremity: Negative for edema Neuro oriented x3, No CN's II-XII intact bilaterally and No no sensory deficits noted Sensorium / Orientation: alert Motor Exam: Negative for strength 5/5 throughout Psych mental status grossly normal Skin no rashes or lesions noted and no wounds General Skin Exam: Negative for jaundice or pallor MDM MDM MDM Narrative Medical decision making narrative: Patient with febrile illness. Will obtain chest x-ray to evaluate for pneumonia. CBC to assess for anemia and white count. Competence of metabolic panel to assess for endorgan dysfunction and specifically renal function and with history of prediabetes glucose and CO2. Because patient has wheezing noted throughout on expiration she was treated with albuterol. She was tested for influenza. Did not repeat COVID test since she has had 6 negative tests over the past 2 weeks. Lab Data Attestation: I reviewed the patient's lab results. Lab results narrative: CBC, comprehensive metabolic panel are essentially unremarkable. Influenza rapid test is negative. Labs: Laboratory Results - last 24 hr 01/27/22 01/27/22 20:20 20:55 WBC 8.7 RBC 4.54 Hgb 14.2 Hct 43.7 MCV 96.3 MCH 31.3 MCHC 32.5 RDW Std Deviation 43.8 RDW Coeff of Bere 12.4 Plt Count 400 MPV 9.7 Immature Gran % (Auto) 1.100 H Neut % (Auto) 57.6 Lymph % (Auto) 32.8 [place] % (Auto) 6.8 Eos % (Auto) 1.0 Baso % (Auto) 0.7 Absolute Neuts (auto) 5.0 Absolute Lymphs (auto) 2.86 Nucleated RBC % 0 Differential Comment SEE COMMENT Atypical Lymphocytes 1+ Platelet Estimate ADEQUATE RBC Morphology N CHROM Anisocytosis 1+ Macrocytosis 1+ Sodium 140 Potassium 3.4 L Chloride 108 H Carbon Dioxide 25.0 Anion Gap 7 BUN 5 L Creatinine 0.48 L Estim Creat Clear Calc 141.65 Est GFR (MDRD) Af Amer 174 Est GFR (MDRD) Non-Af 144 BUN/Creatinine Ratio 10.4 Glucose 86 Calcium 8.8 Total Bilirubin 0.10 L AST 20 ALT 20 Alkaline Phosphatase 133 H Total Protein 6.9 Albumin 3.0 L Globulin 3.9 Albumin/Globulin Ratio 0.8 L Radiography Chest X-Ray - ED: 2 View and Read by ED Physician (2 view x-ray interpreted by me as negative. Cardiac silhouette size normal. Lung parenchyma normal. Osseous structures normal. Perihilar region normal. Independently read by me at 2128.) Treatment and Re-Evaluation Narrative: Patient was reassessed at 2129 she still has a slight wheeze. She does feel better. She is not hypoxic. She was informed of her laboratory and x-ray results. She will be discharged to home with prescription for inhaler, prednisone and doxycycline since she has been sick for 2 weeks. Discharge Plan Triage Chief Complaint: Fever Other Complaint: Headache Nausea/Vomiting/Diarrhea ED Provider: Davon Parson Dx/Rx/DC Orders Clinical Impression: Acute febrile illness, Bacterial upper respiratory infection, Acute bronchospasm, Nausea vomiting and diarrhea, Mild dehydration Instructions: ED URI, Viral W/ Wheezing (Adult), ED Vomiting and Diarrhea ... Prescriptions: New prednisone 20 MG tablet 60 mg PO DAILY Qty: 15 RF: 0 doxycycline monohydrate 100 MG capsule 100 mg PO BID Qty: 10 RF: 0 albuterol sulfate [Ventolin HFA] 1 INHALER inhaler 2 puff inhalation Q4H PRN PRN (Reason: Wheezing) Qty: 1 RF: 0 No Action fluticasone propionate 1 SPRAY spray,suspension 2 spray NASAL BID RF: 0 grymbden-xif-krst-FA-lutein 1 EACH tablet 1 tab PO DAILY RF: 0 albuterol sulfate 1 INHALER inhaler 1 - 2 puff inhalation Q4H PRN PRN (Reason: Wheezing) Qty: 1 RF: 0 omeprazole 20 MG capsule,delayed release(DR/EC) 40 mg PO DAILY RF: 0 gabapentin 300 MG capsule 300 mg PO TIDCM Qty: 60 RF: 0 melatonin-pyridoxine HCl (B6) 1 EACH tablet,ext release multiphase 1 tab PO QHS PRN (Reason: Sleep) RF: 0 levetiracetam 750 MG tablet 1,500 mg PO TID RF: 0 cyclobenzaprine 10 MG tablet 10 mg PO TID PRN (Reason: Muscle Spasm) RF: 0 oxycodone-acetaminophen 1 TABLET tablet 1 tab PO Q8H PRN PRN (Reason: Pain Score 1-10/10) RF: 0 ondansetron 4 MG tablet 4 mg PO Q8H PRN PRN (Reason: Nausea) Qty: 10 RF: 0 clindamycin HCl [Cleocin HCl] 300 MG capsule 300 mg PO Q6H Qty: 40 RF: 0 metoclopramide HCl [metoclopramide HCl] 10 MG tablet 10 mg PO Q6H PRN (Reason: nausea and vomiting) Qty: 20 RF: 0 Primary Care Provider: Ari Sotomayor Referrals: Ari Sotomayor DO [Primary Care Provider] - 3-5 Days if not improving Disposition Disposition: Home, Self Care
[2022-01-27] MEDS: 0.9% Normal Saline 1,000 ML 1000 ML IV (20:26)
[2022-01-27] MEDS: Albuterol 2.5 MG/3 ML VIAL.NEB. INHALATION ×3 (20:30)
[2022-01-27 21:03] LABS: Absolute Lymphocyte Count 2.86 X10^3/uL (0.83-4.51); Basophil# 0.06 X10^3/uL; Basophil% 0.7 % (0-1); Eosinophil# 0.09 X10^3/uL; Hematocrit 43.7 % (37-47); Hemoglobin 14.2 g/dL (12.0-15.0); Lymphocyte # 2.86 X10^3/ul (0.83-4.51); Lymphocyte % 32.8 % (19-41); Mean Corp Hgb Conc 32.5 g/dL (32-36); Mean Corpuscular Hgb 31.3 pg (27.0-32.0); Mean Corpuscular Volume 96.3 fL (81-99); Mean Platelet Vol. 9.7 fl (6.2-12.0); Monocyte# 0.59 X10^3/uL; Monocyte% 6.8 % (0-10); NRBC Flagged by Analyzer 0 % (0-5); Neutrophil # 5.01 X10^3/uL (2.7-7.7); Neutrophil % 57.6 % (47-70); POSITIVE MORPHOLOGY YES; Platelet Count 400 K/mm3 (150-450); RBC Distribution Width CV 12.4 % (11.6-14.6); RBC Distribution Width SD 43.8 fl (35.1-43.9); Red Blood Count 4.54 M/mm3 (4.2-5.4); White Blood Count 8.7 K/mm3 (4.4-11.0)
[2022-01-27 21:08] LABS: ALB/GLOB Ratio 0.8 RATIO (0.9-2.4); AST(SGOT) 20 U/L (15-37); Alanine Aminotransfer ALT/SGPT 20 U/L (13-56); Alkaline Phosphatase 133 U/L (45-117); Anion Gap 7 (5-15); BUN 5 mg/dL (7-18); BUN/Creat Ratio 10.4 RATIO (10-20); Calcium,Total 8.8 mg/dL (8.5-10.1); Chloride 108 mmol/L (98-107); Creatinine, Serum 0.48 mg/dL (0.55-1.02); EST Glomerular Filtration Rate 144 mL/min (>60); Est Glom Filt Rate - Afr Amer 174 mL/min (>60); Estimated Creatinine Clearance 141.65 ml/min; Globulin 3.9 g/dL (2.2-4.2); Glucose 86 mg/dL (74-106); Potassium 3.4 mmol/L (3.5-5.1); Protein, Total 6.9 g/dL (6.4-8.2); Sodium Level 140 mmol/L (136-145)
--- NOTE | 2022-01-27 21:10 | RAD_ITS ---
EXAM: XR CHEST, 2 VIEWS CLINICAL INDICATION: Cough, wheezing negative for COVID TECHNIQUE: Frontal and lateral views of the chest. This report was created using [employer] report generation technology. COMPARISON: 07/26/2021 FINDINGS: LUNGS AND PLEURAL SPACES: Previous bilateral airspace disease has resolved. No pneumothorax. No effusion. HEART: Unremarkable. Cardiac silhouette not enlarged. MEDIASTINUM: Central airways and mediastinal contour are unremarkable. BONES/JOINTS: Unremarkable. SOFT TISSUES: Unremarkable. RAD/Chest PA and Lateral IMPRESSION: Interval resolution of previous bilateral airspace disease. Electronically Signed: Alfredito Street MD at 21:39 EDT ,
[2022-01-27 21:21] LABS: Differential Indicated SCAN CRITERIA MET
[2022-01-27 21:25] LABS: Anisocytosis 1+; Atypical Lymphocyte 1+ %; Macrocytosis 1+; Platelet Estimate ADEQUATE (ADEQ); Red Cell Morphology N CHROM NORMAL (NORM C&C)
[2022-01-27] MEDS: predniSONE 20 MG Tablet 60 MG PO (21:39)
[2022-01-27] MEDS: Ketorolac 15 MG/ML Vial IV (21:45)
[2022-01-27] MEDS: DiphenhydrAMINE 50 MG/ML Syringe 25 MG IV (21:45)
[2022-01-27] MEDS: Metoclopramide 10 MG/2 ML Vial IV (21:46)
[2022-01-27 22:09] LABS: Lactic Acid 1.6 mmol/L (0.4-1.9)
== END 2022-01-27 21:51 | disposition home or self-care (01) ==
PROVIDERS: Emergency Provider Emergency Medicine; PCP Family Medicine; Visit Provider Emergency Medicine
DX: J06.9 Acute upper respiratory infection, unspecified (principal); M06.9 Rheumatoid arthritis, unspecified; G40.909 Epilepsy, unspecified, not intractable, without status epilepticus; R19.7 Diarrhea, unspecified; J98.01 Acute bronchospasm; G43.909 Migraine, unspecified, not intractable, without status migrainosus; E86.0 Dehydration; R11.2 Nausea with vomiting, unspecified; R06.2 Wheezing; K21.9 Gastro-esophageal reflux disease without esophagitis; Z86.16 Personal history of COVID-19; Z87.891 Personal history of nicotine dependence
CPT/HCPCS: 71046; 80053; 83605; 85025; 87804; 96361; 96374; 96375; 99285; J7030; A4216

== ENCOUNTER 2022-03-21 19:14 | Emergency (ER) | payer MEDICARE, MEDICAID, SELFPAY ==
[2022-03-21 19:15] VITALS: BP 135/78; PULSE 88; RESP 14; TEMP 36.6; O2SAT 98; BMI 26.6
--- NOTE | 2022-03-21 20:27 | RAD_ITS ---
STUDY: X-RAY - RIGHT HUMERUS REASON FOR EXAM: Female, 52 years old. Fall onto right arm. Limited motion. TECHNIQUE: AP and lateral view(s) of the humerus. COMPARISON: None. FINDINGS: Normal visualized humerus. There is no demonstrated fracture or osseous destructive process. Mild degenerative changes of the shoulder. The elbow appears grossly normal. There is no demonstrated soft tissue abnormality. RAD/Humerus min 2 Views IMPRESSION: No acute fracture or dislocation. Electronically Signed: Sundeep Krishnan DO at 21:06 EDT ,
--- NOTE | 2022-03-21 20:29 | EDS_ITS ---
HPI History of Present Illness Chief Complaint: Chest Other Detail of Chief Complaint: Pulled down by her dog. Informant: patient Onset/Context/Timing Onset: Today and Hours Mechanism/Context: Blunt Injury and Fall Location of pain/injuries: Right arm Quality of Pain: Sharp, Dull and Aching Current Severity: Moderate Maximum Severity: Moderate Associated Symptoms Associated Symptoms: Negative for Parasthesias, Weakness, Loss of function, Inability to ambulate, Loss of consciousness or Amnesia Narrative Narrative: 52-year-old female who was walking her boxer when it pulled her down and she struck her right rib cage and right arm when she fell to the ground. No LOC. She is on no blood thinners. She thinks she may hit the right side of her head but denies any head or neck pain. And again did not lose consciousness. Prior similar symptoms: No Recent Illness/Hospitalization: No PFSH PFSH Medical History Asthma Brain aneurysm Chronic pain COVID-19 Former smoker GERD (gastroesophageal reflux disease) Kidney disease Kidney stones Migraines Rheumatoid arthritis Seizures Sleep apnea Home Medications fluticasone propionate 50 mcg/actuation nasal spray,suspension 2 spray BID Congestion 09/30/16 [History Last Taken 07/26/21] multivit with hkgpxooz-[id number]-RF-lutein 8 mg iron-400 mcg-300 mcg tablet 1 tab PO DAILY supplement 03/21/19 [History Last Taken 07/26/21] albuterol sulfate 90 mcg/actuation aerosol inhaler 1 - 2 puff inhalation Q4H PRN PRN Wheezing ##1 04/20/19 [Rx Last Taken 06/20/19] omeprazole 20 mg capsule,delayed release 40 mg PO DAILY GERD 05/31/19 [History Last Taken 07/26/21] gabapentin 300 mg capsule 300 mg PO TIDCM #60 caps 06/03/19 [Rx Last Taken 07/26/21] melatonin ER 10 mg-pyridoxine HCl (B6) 10 mg tab, immed-extend release 1 tab PO QHS PRN Sleep 06/21/19 [History Last Taken 06/20/19] levetiracetam 750 mg tablet 1,500 mg PO TID seizures 12/04/19 [History Last Taken 07/26/21] cyclobenzaprine 10 mg tablet 10 mg PO TID PRN Muscle Spasm 02/27/20 [History L ast Taken Unknown] oxycodone-acetaminophen 5 mg-325 mg tablet 1 tab PO Q8H PRN PRN Pain Score 1- 10/10 02/27/20 [History Last Taken Unknown] albuterol sulfate 90 mcg/actuation aerosol inhaler (Ventolin HFA) 2 puff inhalation Q4H PRN PRN Wheezing ##1 01/27/22 [Rx Last Taken Unknown] oxycodone-acetaminophen 5 mg-325 mg tablet (Percocet) 1 tab PO Q4H PRN pain 4 days #14 tabs 03/21/22 [Rx Last Taken Unknown] Allergy/AdvReac Type Severity Reaction Status Date / Time Penicillins Allergy Anaphylaxis Verified 03/21/22 19:17 propoxyphene napsylate Allergy Rash Verified 03/21/22 19:17 [From Darvocet-N 100] hydrocodone bitartrate AdvReac Itching Verified 03/21/22 19:17 [From Vicodin] venom-honey bee AdvReac Chest Verified 03/21/22 19:17 [bee venom (honey bee)] tightness PLASTIC TAPE Allergy blistering Uncoded 03/21/22 19:17 IV contrast AdvReac Vomiting Uncoded 03/21/22 19:17 Surgical History History of appendectomy History of cholecystectomy Social History household members: none Smoking Status: Former smoker substance use type: does not use ROS ROS ED ROS Narrative Nausea and vomiting x1. No recent illness. Review of Systems ROS Unobtainable: Denies due to encephalopathy Constitutional Constitutional ED: Denies chills or fever(s) Eyes Eyes: Denies blurry vision ENT ENT ED: Denies ear pain Cardiovascular Cardiovascular: Denies chest pain Respiratory/Chest Respiratory/Chest: Denies cough Gastrointestinal Gastrointestinal: Denies abdominal pain Genitourinary Genitourinary ED: Denies dysuria or hematuria Musculoskeletal Musculoskeletal: Denies arthralgias Integumentary Denies abscess Neurologic Neurologic: Denies headache(s) Psychiatric Psychiatric: Denies anxiety Endocrine Endocrinology: Denies cold intolerance Hematologic/Lymphatic Hematologic/Lymphatic: Denies easy bleeding Allergic/Immunologic Allergic/Immunologic ED: Denies mouth swelling EXAM Physical Exam Narrative Exam Narrative: 52-year-old female vital signs stable afebrile. Pulse ox 90% on room air no signs hypoxia. H EENT exam pupils are reactive light. No facial trauma. Small contusion right lateral scalp about the size of a dime. No blood or laceration. C-spine nontender. Trachea midline. Thoracic lumbar spine nontender. Right posterior and lateral ribs are tender to palpation. Lungs are clear. Heart regular rhythm rate about 90 no murmur. Chest wall right lateral and anterior rib cage tenderness. No crepitance or subcu air. Abdomen soft nontender normal bowel sounds no peritoneal signs. No signs of trauma. Pelvic girdle intact. Moving all 4 extremities. Normal range of motion. 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 Normal dorsi plantar flexion. Complaint tenderness to her right humerus. There is no swelling, bruising or deformity. Neurologically she is awake and alert with no focal motor deficits. GCS of 15. Const Vital Signs: 03/21/22 19:15 03/21/22 20:16 Temperature 97.9 F Temperature Source Temporal Pulse Rate 88 Respiratory Rate 14 Respiratory Pattern Normal Blood Pressure 135/78 H Blood Pressure Mean 97 Pulse Ox 98 Oxygen Delivery Method Room Air Positive well nourished and well developed; Negative for cachectic, contractures or unkempt General Appearance ED: well developed; Negative for unkempt, cachectic or contractures Nutritional Appearance: Negative for cachectic HEENT trauma and tenderness; Negative for atraumatic Eyes PERRL and EOMs intact bilaterally Neck full ROM General: Negative for tenderness Chest Wall Negative for inspection of chest normal or palpation of chest normal Chest Narrative: Right lateral and anterior and posterior rib cage pain. No crepitance or subcu air. Resp normal respiratory effort and clear to auscultation bilaterally Effort and Inspection: Negative for pain with movement Auscultation: Negative for rales, rhonchi or wheezes Cardio regular rhythm, S1 normal heart sound, S2 normal heart sound and no murmurs Rate: regular rate GI normal to inspection, nondistended, normoactive bowel sounds, non-tender, non- distended and no masses Inspection: Negative for abdominal distention Auscultation: normoactive bowel sounds Palpation: soft; Negative for tender or guarding Rectal Exam: visual inspection normal Back/Spine normal to inspection and no thoracic nor lumbar tenderness General Back: Negative for CVA tenderness Thoracic Spine / Upper Back: Negative for thoracic spinal tenderness Extremity normal to inspection and full ROM Extremity Narrative: Except tenderness to her right mid humerus. No deformity or swelling. Neuro oriented x3, CN's II-XII intact bilaterally, moves all extremities, no focal motor deficits and no sensory deficits noted Nita Coma Scale: document GCS findings Spontaneous Obeys Commands Oriented 15 Sensorium / Orientation: alert, oriented to person, oriented to place and oriented to time; Negative for orientation impaired, lethargic or stuporous Motor Exam: strength 5/5 throughout Psych mental status grossly normal Appearance: Negative for unkempt Attitude: No agitated Mood & Affect: Negative for depressed or anxious Skin no rashes or lesions noted and no wounds Rashes: No rashes noted Trauma: Negative for abrasion Wounds: Negative for wounds noted MDM MDM MDM Narrative Medical decision making narrative: 52-year-old pulled down by her dog complaining of right arm and right rib cage pain. Chest x-ray PA and lateral be obtained in the right humerus. Given ox ycodone for pain. Patient doing well at 10:10 PM. Radiography Diagnostic Testing: Clinical Impression(s) from Imaging Studies Humerus X-Ray 03/21/22 20:27 IMPRESSION: No acute fracture or dislocation. Electronically Signed: Sundeep NavasDO pamela at 21:06 EDT Reading Location ID and State: [address] [place] [address] Tel [phone], Service support , Chest X-Ray 03/21/22 20:42 IMPRESSION: No acute cardiopulmonary disease or major interval change. Electronically Signed: Sundeep Krishnan DO at 21:08 EDT Reading Location ID and State: [facility] / [place] Tel [phone], Service support , Right humerus x-ray 2 views interpreted myself and radiologist shows no acute abnormality. No fracture or dislocation. Chest x-ray AP and lateral 2 views interpreted by myself and radiologist there is no obvious rib fractures. Normal cardiac silhouette. Normal mediastinum. Normal lung guerra. I did go over both films with the patient. She understands that nondisplaced rib fractures may not be seen on an x-ray. Discharge Plan Triage Chief Complaint: Chest Other ED Provider: Zain Carvajal Dx/Rx/DC Orders Clinical Impression: Fall, Contusion of rib on right side, Arm contusion Instructions: ED Contusion, Upper Extremity, ED Contusion, Rib Prescriptions: New oxycodone-acetaminophen [Percocet] 5-325 mg tablet 1 tab PO Q4H PRN (Reason: pain) 4 Days Qty: 14 0RF No Action fluticasone propionate 1 SPRAY spray,suspension 2 spray NASAL BID [id number]-tla-ofsl-FA-lutein 1 EACH tablet 1 tab PO DAILY albuterol sulfate 1 INHALER inhaler 1 - 2 puff inhalation Q4H PRN PRN (Reason: Wheezing) Qty: 1 0RF omeprazole 20 MG capsule,delayed release(DR/EC) 40 mg PO DAILY gabapentin 300 MG capsule 300 mg PO TIDCM Qty: 60 0RF melatonin-pyridoxine HCl (B6) 1 EACH tablet,ext release multiphase 1 tab PO QHS PRN (Reason: Sleep) levetiracetam 750 MG tablet 1,500 mg PO TID cyclobenzaprine 10 MG tablet 10 mg PO TID PRN (Reason: Muscle Spasm) oxycodone-acetaminophen 1 TABLET tablet 1 tab PO Q8H PRN PRN (Reason: Pain Score 1-10/10) albuterol sulfate [Ventolin HFA] 1 INHALER inhaler 2 puff inhalation Q4H PRN PRN (Reason: Wheezing) Qty: 1 0RF Primary Care Provider: Ari Sotomayor Referrals: Ari Sotomayor DO [Primary Care Provider] - 1 Week if not improving Activity Restrictions/Additional Instructions: The x-ray of your chest and your arm showed no broken bones. You can still have small rib fractures that are not seen on the x-ray. Ice to your chest wall in your arm. Motrin for pain and swelling. Percocet for more severe pain. Follow-up with your doctor if not improving. Disposition Disposition: Home, Self Care
--- NOTE | 2022-03-21 20:42 | RAD_ITS ---
STUDY: X-RAY CHEST REASON FOR EXAM: Female, 52 years old. Fall onto right side. Chest wall pain. TECHNIQUE: AP and lateral views of the chest. COMPARISON: 07/26/2021. FINDINGS: The lungs are clear and expanded. There is no demonstrated pleural abnormality. Normal size heart. Normal mediastinum and kimani. Normal visualized pulmonary arteries. Normal visualized aortic arch and descending thoracic aorta. There is straightening of the normal kyphosis of the thoracic spine. Again seen is anterior fusion lower cervical spine Normal visualized ribs, clavicles, and shoulders. There is no demonstrated abnormality of the visualized soft tissue structures of the upper abdomen. RAD/Chest PA and Lateral IMPRESSION: No acute cardiopulmonary disease or major interval change. Electronically Signed: Sundeep Krishnan DO at 21:08 EDT ,
[2022-03-21] MEDS: oxyCODONE 5 MG Tablet PO (22:01)
[2022-03-21 22:28] VITALS: RESP 16
--- NOTE | 2022-03-21 22:29 | ED.RN ---
REVIEWED D/C INSTRUCTIONS, FOLLOW UP CARE, PRESCRIPTION AND S/S THAT WOULD WARRANT A RETURN TO THE ED WITH PT. PT VERBALIZED AN UNDERSTANDING AND DENIES FURTHER QUESTIONS FOR THIS RN. PT SKIN P/W/D, RESP EVEN AND UNLABORED, PT A&O X 3, NO DISTRESS NOTED. PT AMBULATED OUT OF ED, GAIT STEADY.
== END 2022-03-21 22:32 | disposition home or self-care (01) ==
PROVIDERS: Emergency Provider Emergency Medicine; PCP Family Medicine; Visit Provider Emergency Medicine
DX: S20.211A Contusion of right front wall of thorax, initial encounter (principal); M06.9 Rheumatoid arthritis, unspecified; G40.909 Epilepsy, unspecified, not intractable, without status epilepticus; S40.021A Contusion of right upper arm, initial encounter; W01.198A Fall on same level from slipping, tripping and stumbling with subsequent striking against other object, initial encounter; K21.9 Gastro-esophageal reflux disease without esophagitis; Y93.K1 Activity, walking an animal; Y99.8 Other external cause status; Z79.899 Other long term (current) drug therapy; Z86.16 Personal history of COVID-19; Z87.891 Personal history of nicotine dependence
CPT/HCPCS: 71046; 73060; 99283

== ENCOUNTER → 2022-04-02 | Outpatient (CLI) | payer MEDICARE, MEDICAID, SELFPAY ==
[2022-04-02 12:43] LABS: Amphetamine Urine VISTA NEGATIVE (<1000 ng/mL); Barbiturate Urine VISTA NEGATIVE (< 200 ng/mL); Benzodiazepine Urine VISTA NEGATIVE (< 200 ng/mL); Cocaine Urine VISTA NEGATIVE (< 300 ng/mL); Ecstacy Urine VISTA NEGATIVE (< 500 ng/mL); Methadone Urine VISTA NEGATIVE (< 300 ng/mL); PCP Urine VISTA NEGATIVE (< 25 ng/mL); THC Urine VISTA NEGATIVE (< 50 ng/mL); Vista UDS pH Range 5
== END | disposition home or self-care (01) ==
LOC: LAB 10:47
PROVIDERS: PCP Family Medicine; Visit Provider Anesthesiology Pain Medicine
DX: F11.20 Opioid dependence, uncomplicated (principal)
CPT/HCPCS: 80307

== ENCOUNTER 2022-05-04 19:25 | Emergency (ER) | payer MEDICARE, MEDICAID, SELFPAY ==
[2022-05-04 19:26] VITALS: BP 158/78; PULSE 78; RESP 16; TEMP 37.2; O2SAT 96; BMI 25.1
--- NOTE | 2022-05-04 20:05 | EDS_ITS ---
HPI History of Present Illness Chief Complaint: Upper Extremity Injury Detail of Chief Complaint: Right hand pain Informant: patient Narrative Narrative: Patient presents with right hand pain that started initially as more soreness in the right hand in the first MCP joint and second MCP joints. Patient has developed significantly more pain in the last 24 hours. She complains of significant pain with range of motion and trying to flex the digits. Patient feels like her hand swollen. Patient states that now her left hand started to feel sore like the right hand it initially but not having much pain in it currently. She is never had discomfort like this before. She does not do a lot of repetitive motions with her hands. No history of arthritis. She tells me she otherwise has no medical history. Patient has had multiple surgeries in the past including back and neck surgery and surgery for a brain aneurysm that was coiled and clamped. Patient also with prior appendectomy, cholecystectomy, and hysterectomy. [facility] Medical History Asthma Brain aneurysm Chronic pain COVID-19 Former smoker GERD (gastroesophageal reflux disease) Kidney disease Kidney stones Migraines Rheumatoid arthritis Seizures Sleep apnea Home Medications fluticasone propionate 50 mcg/actuation nasal spray,suspension 2 spray BID Congestion 09/30/16 [History Last Taken 07/26/21] multivit with lvmteihe-guuu-HD-lutein 8 mg iron-400 mcg-300 mcg tablet 1 tab PO DAILY supplement 03/21/19 [History Last Taken 07/26/21] albuterol sulfate 90 mcg/actuation aerosol inhaler 1 - 2 puff inhalation Q4H PRN PRN Wheezing ##1 04/20/19 [Rx Last Taken 06/20/19] omeprazole 20 mg capsule,delayed release 40 mg PO DAILY GERD 05/31/19 [History Last Taken 07/26/21] gabapentin 300 mg capsule 300 mg PO TIDCM #60 caps 06/03/19 [Rx Last Taken 07/26/21] melatonin ER 10 mg-pyridoxine HCl (B6) 10 mg tab, immed-extend release 1 tab PO QHS PRN Sleep 06/21/19 [History Last Taken 06/20/19] levetiracetam 750 mg tablet 1,500 mg PO TID seizures 12/04/19 [History Last Taken 07/26/21] cyclobenzaprine 10 mg tablet 10 mg PO TID PRN Muscle Spasm 02/27/20 [History Last Taken Unknown] oxycodone-acetaminophen 5 mg-325 mg tablet 1 tab PO Q8H PRN PRN Pain Score 1- 06/0202/27/20 [History Last Taken Unknown] albuterol sulfate 90 mcg/actuation aerosol inhaler (Ventolin HFA) 2 puff inhalation Q4H PRN PRN Wheezing ##1 01/27/22 [Rx Last Taken Unknown] oxycodone-acetaminophen 5 mg-325 mg tablet (Percocet) 1 tab PO Q4H PRN pain 4 days #14 tabs 03/21/22 [Rx Last Taken Unknown] oxycodone-acetaminophen 5 mg-325 mg tablet 1 tab PO Q6H PRN PRN Pain 3 days #12 TABLETS 05/04/22 [Rx Last Taken Unknown] Allergy/AdvReac Type Severity Reaction Status Date / Time Penicillins Allergy Anaphylaxis Verified 05/04/22 19:26 propoxyphene napsylate Allergy Rash Verified 05/04/22 19:26 [From Darvocet-N 100] hydrocodone bitartrate AdvReac Itching Verified 05/04/22 19:26 [From Vicodin] venom-honey bee AdvReac Chest Verified 05/04/22 19:26 [bee venom (honey bee)] tightness PLASTIC TAPE Allergy blistering Uncoded 05/04/22 19:26 IV contrast AdvReac Vomiting Uncoded 05/04/22 19:26 Surgical History History of appendectomy History of cholecystectomy Social History household members: none Smoking Status: Former smoker substance use type: does not use ROS ROS ED Review of Systems ROS Unobtainable: other Constitutional Constitutional ED: Reports lethargy; Denies chills, fever(s), sweats or weight loss Eyes Eyes: Denies blurry vision, change in vision or diplopia ENT ENT ED: Denies rhinorrhea or sore throat Cardiovascular Cardiovascular: Reports chest pain and racing heartbeat; Denies orthopnea Respiratory/Chest Respiratory/Chest: Reports dyspnea and dyspnea on exertion; Denies cough, orthopnea or sputum Gastrointestinal Gastrointestinal: Denies abdominal pain, diarrhea, nausea or vomiting Genitourinary Genitourinary ED: Denies dysuria, hematuria or urinary frequency Musculoskeletal Musculoskeletal: Reports other Details: Right hand pain ; Denies arthralgias, back pain, myalgias or neck pain Integumentary Denies abscess, Abrasions or rash Neurologic Neurologic: Denies headache(s) or weakness Psychiatric Psychiatric: Denies anxiety, depression or suicidal thoughts Endocrine Endocrinology: Denies polydipsia, polyphagia or polyuria Hematologic/Lymphatic Hematologic/Lymphatic: Denies easy bleeding, easy bruising or lymphadenopathy Allergic/Immunologic Allergic/Immunologic ED: Denies mouth swelling, tongue swelling or urticaria EXAM Physical Exam Const Vital Signs: 05/04/22 19:26 Temperature 98.9 F Temperature Source Temporal Pulse Rate 78 Respiratory Rate 16 Blood Pressure 158/78 H Blood Pressure Mean 104 Pulse Ox 96 Oxygen Delivery Method Room Air Positive well nourished and well developed General Appearance ED: well developed and NAD HEENT Reports TM's clear and moist mucous membranes normocephalic and atraumatic; Negative for trauma or tenderness Tympanic Membrane ED: Yes TM's clear Eyes PERRL and EOMs intact bilaterally General Eye ED: Negative for pale conjunctiva or scleral icterus Neck no lymphadenopathy, supple and no JVD General: Negative for tenderness Chest Wall inspection of chest normal and palpation of chest normal Chest: Negative for tenderness Resp normal respiratory effort and clear to auscultation bilaterally Effort and Inspection: Negative for respiratory distress or pain with movement Auscultation: Negative for rhonchi, wheezes or diminished lung sounds Cardio regular rate, regular rhythm, S1 normal heart sound, S2 normal heart sound and no murmurs Peripheral Pulses: pulses 2+ throughout GI normal to inspection, nondistended, normoactive bowel sounds, soft to palpation, non-tender, non-distended and no masses Back/Spine no CVA tenderness and no thoracic nor lumbar tenderness Extremity Extremity Narrative: Right hand-I do not appreciate any swelling or edema to the hand. Patient has tenderness over the first MCP joint and second MCP joint. Pain with range of motion. She is neurovascular intact. She has normal radial and ulnar pulses. Normal cap refill. General Extremety ED: Negative for edema General Extremity: Negative for edema Neuro oriented x3, CN's II-XII intact bilaterally, no sensory deficits noted and gait normal Sensorium / Orientation: awake, alert, oriented to person, oriented to place and oriented to time Motor Exam: strength 5/5 throughout and strength abnormal Psych mental status grossly normal Skin no rashes or lesions noted and no wounds MDM MDM MDM Narrative Medical decision making narrative: Patient was given a thumb spica splint. Patient was given a dose of Oxy IR. At this point etiology of her pain is unclear. There are no signs of infection. No vascular compromise noted. No evidence of trauma. Patient referred to her primary care physician for follow-up within the next 3 to 5 days. She is given a prescription for Oxy IR for pain and also advised to use ibuprofen as an anti- inflammatory. Radiography Diagnostic Testing: Three-view x-rays of the right hand obtained interpreted by myself as no acute fractures or dislocations are degenerative changes noted. Radiology in agreement. Discharge Plan Triage Chief Complaint: Upper Extremity Injury ED Provider: Otis Smith Dx/Rx/DC Orders Clinical Impression: Hand pain, right Instructions: ED Pain, Acute, Uncertain Cause Prescriptions: New oxycodone-acetaminophen [oxycodone-acetaminophen] 5-325 mg tablet 1 tab PO Q6H PRN PRN (Reason: Pain) 3 Days Qty: 12 0RF No Action fluticasone propionate 1 SPRAY spray,suspension 2 spray NASAL BID [id number]-fud-kfae-FA-lutein 1 EACH tablet 1 tab PO DAILY albuterol sulfate 1 INHALER inhaler 1 - 2 puff inhalation Q4H PRN PRN (Reason: Wheezing) Qty: 1 0RF omeprazole 20 MG capsule,delayed release(DR/EC) 40 mg PO DAILY gabapentin 300 MG capsule 300 mg PO TIDCM Qty: 60 0RF melatonin-pyridoxine HCl (B6) 1 EACH tablet,ext release multiphase 1 tab PO QHS PRN (Reason: Sleep) levetiracetam 750 MG tablet 1,500 mg PO TID cyclobenzaprine 10 MG tablet 10 mg PO TID PRN (Reason: Muscle Spasm) oxycodone-acetaminophen 1 TABLET tablet 1 tab PO Q8H PRN PRN (Reason: Pain Score 1-10/10) albuterol sulfate [Ventolin HFA] 1 INHALER inhaler 2 puff inhalation Q4H PRN PRN (Reason: Wheezing) Qty: 1 0RF oxycodone-acetaminophen [Percocet] 5-325 mg tablet 1 tab PO Q4H PRN (Reason: pain) 4 Days Qty: 14 0RF Primary Care Provider: Ari Sotomayor Referrals: Ari Sotomayor DO [Primary Care Provider] - 3-5 Days Disposition Disposition: Home, Self Care
--- NOTE | 2022-05-04 20:10 | RAD_ITS ---
STUDY: RIGHT HAND X-RAY SERIES OF 2005 HOURS ON 05/04/2022 REASON FOR EXAM: 52-year-old female with right hand pain. TECHNIQUE: 3 view(s) of the hand. COMPARISON: None. FINDINGS: No fractures or dislocations. No arthritic or degenerative changes. No osteomyelitis or periostitis. Normal joint spaces. Normal surrounding soft tissues. RAD/Hand Min 3 Views IMPRESSION: 1. Normal examination of the right hand. 2. No fractures or dislocations. 3. No arthritic or degenerative changes. Electronically Signed: Gabe Nieto MD at 20:32 EDT ,
[2022-05-04] MEDS: oxyCODONE 5 MG Tablet PO (21:09)
== END 2022-05-04 21:23 | disposition home or self-care (01) ==
PROVIDERS: Emergency Provider Emergency Medicine; PCP Family Medicine; Visit Provider Emergency Medicine
DX: M79.641 Pain in right hand (principal); R56.9 Unspecified convulsions; J45.909 Unspecified asthma, uncomplicated; Z87.891 Personal history of nicotine dependence; Z79.899 Other long term (current) drug therapy
CPT/HCPCS: 73130; 99283

== ENCOUNTER 2022-06-28 21:29 | Emergency (ER) | payer MEDICARE, MEDICAID, SELFPAY ==
[2022-06-28 21:30] VITALS: BP 140/99; PULSE 106; RESP 18; TEMP 36.4; O2SAT 93; BMI 26.6
--- NOTE | 2022-06-28 22:13 | RAD_ITS ---
STUDY: X-RAY - LEFT HAND REASON FOR EXAM: Female, 52 years old. injury TECHNIQUE: 3 view(s) of the hand. COMPARISON: Right hand radiograph May 04, 2022. FINDINGS: Third distal phalanx nondisplaced fracture due to nailbed with surrounding edema. No dislocation. No aggressive osseous lesion. No radiodense soft tissue foreign body. RAD/Hand Min 3 Views IMPRESSION: Nondisplaced third distal phalanx fracture deep to the nailbed. Electronically Signed: Tyler Vora MD at 23:28 EDT ,
--- NOTE | 2022-06-28 22:18 | EDS_ITS ---
HPI History of Present Illness Chief Complaint: Upper Extremity Injury Detail of Chief Complaint: Left hand injury Informant: patient Occured/Mechanism Mechanism/Context: Yes crush Onset/Context/Timing Onset: Today Current Severity: Moderate Maximum Severity: Moderate Narrative Narrative: Patient presents with injury to her left hand. She got her left hand caught between a bowling ball and another machine. She had a crush injury to her left index and long fingers. She is right-hand dominant. [facility] Medical History Asthma Brain aneurysm Chronic pain COVID-19 Former smoker GERD (gastroesophageal reflux disease) Kidney disease Kidney stones Migraines Rheumatoid arthritis Seizures Sleep apnea Home Medications fluticasone propionate 50 mcg/actuation nasal spray,suspension 2 spray BID Congestion 09/30/16 [History Last Taken 07/26/21] multivit with hzucxxpj-lioq-HT-lutein 8 mg iron-400 mcg-300 mcg tablet 1 tab PO DAILY supplement 03/21/19 [History Last Taken 07/26/21] albuterol sulfate 90 mcg/actuation aerosol inhaler 1 - 2 puff inhalation Q4H PRN PRN Wheezing ##1 04/20/19 [Rx Last Taken 06/20/19] omeprazole 20 mg capsule,delayed release 40 mg PO DAILY GERD 05/31/19 [History Last Taken 07/26/21] gabapentin 300 mg capsule 300 mg PO TIDCM #60 caps 06/03/19 [Rx Last Taken 07/26/21] melatonin ER 10 mg-pyridoxine HCl (B6) 10 mg tab, immed-extend release 1 tab PO QHS PRN Sleep 06/21/19 [History Last Taken 06/20/19] levetiracetam 750 mg tablet 1,500 mg PO TID seizures 12/04/19 [History Last T aken 07/26/21] cyclobenzaprine 10 mg tablet 10 mg PO TID PRN Muscle Spasm 02/27/20 [History Last Taken Unknown] albuterol sulfate 90 mcg/actuation aerosol inhaler (Ventolin HFA) 2 puff inhalation Q4H PRN PRN Wheezing ##1 01/27/22 [Rx Last Taken Unknown] oxycodone-acetaminophen 5 mg-325 mg tablet (Percocet) 1 tab PO Q6H PRN pain 3 days #10 tabs 11/05/22 [Rx Last Taken Unknown] Allergy/AdvReac Type Severity Reaction Status Date / Time Penicillins Allergy Anaphylaxis Verified 06/28/22 21:29 propoxyphene napsylate Allergy Rash Verified 06/28/22 21:29 [From Darvocet-N 100] hydrocodone bitartrate AdvReac Itching Verified 06/28/22 21:29 [From Vicodin] venom-honey bee AdvReac Chest Verified 06/28/22 21:29 [bee venom (honey bee)] tightness PLASTIC TAPE Allergy blistering Uncoded 06/28/22 21:29 IV contrast AdvReac Vomiting Uncoded 06/28/22 21:29 Surgical History History of appendectomy History of cholecystectomy Social History household members: none Smoking Status: Former smoker substance use type: does not use ROS ROS ED Constitutional Constitutional ED: Denies chills or fever(s) Eyes Eyes: Denies change in vision or discharge from eye(s) ENT ENT ED: Denies discharge from eye(s), rhinorrhea or sore throat Cardiovascular Cardiovascular: Denies chest pain or palpitations Respiratory/Chest Respiratory/Chest: Denies cough or dyspnea Gastrointestinal Gastrointestinal: Denies abdominal pain, nausea or vomiting Genitourinary Genitourinary ED: Denies dysuria Musculoskeletal Musculoskeletal: Reports extremity pain; Denies back pain Integumentary Denies Abrasions or rash Neurologic Neurologic: Denies headache(s) or weakness Psychiatric Psychiatric: Denies anxiety or depression Allergic/Immunologic Allergic/Immunologic ED: Denies lip swelling or urticaria EXAM Physical Exam Const Vital Signs: 06/28/22 21:30 Temperature 97.5 F L Temperature Source Temporal Pulse Rate 106 H Respiratory Rate 18 Blood Pressure 140/99 H Blood Pressure Mean 112 Pulse Ox 93 Oxygen Delivery Method Room Air Positive well nourished and well developed General Appearance ED: well developed HEENT Reports normocephalic and head/scalp atraumatic Eyes PERRL and EOMs intact bilaterally Neck supple Chest Wall inspection of chest normal and palpation of chest normal Resp normal respiratory effort and clear to auscultation bilaterally Cardio regular rate and regular rhythm GI normal to inspection, nondistended, normoactive bowel sounds Palpation: soft Extremity Extremity Narrative: Tenderness to the left index and long fingers. Ecchymosis noted to the distal aspect of the long finger. She is able to flex and extend the index finger but states she cannot move the long finger. Good cap refill and sensation are noted distally in all digits. Neuro oriented x3 and no sensory deficits noted Sensorium / Orientation: alert Psych mental status grossly normal Skin no rashes or lesions noted MDM MDM MDM Narrative Medical decision making narrative: Patient is given oxycodone for pain. Left hand x-ray obtained. Treatment and Re-Evaluation Narrative: Left hand x-ray from interpretation reveals a fracture to the distal phalanx of the left third finger. This is not an open wound. Finger is splinted with AlumaFoam splint. Patient be given prescription for Percocet. She has an ap pointment to see Dr. Noyola, spine surgeon this coming Thursday. She will call the office to see if she can see one of the regular orthopedic docs while she is there at the same office. Discharge Plan Triage Chief Complaint: Upper Extremity Injury ED Provider: Maya Monroy Dx/Rx/DC Orders Clinical Impression: Finger fracture, Crush injury Instructions: ED Crush Injury, Hand, ED Closed Hand Fracture (Adult) Prescriptions: New oxycodone-acetaminophen [Percocet] 5-325 mg tablet 1 tab PO Q6H PRN (Reason: pain) 3 Days Qty: 10 0RF No Action fluticasone propionate 1 SPRAY spray,suspension 2 spray NASAL BID rpzbafmz-ack-ewvc-FA-lutein 1 EACH tablet 1 tab PO DAILY albuterol sulfate 1 INHALER inhaler 1 - 2 puff inhalation Q4H PRN PRN (Reason: Wheezing) Qty: 1 0RF omeprazole 20 MG capsule,delayed release(DR/EC) 40 mg PO DAILY gabapentin 300 MG capsule 300 mg PO TIDCM Qty: 60 0RF melatonin-pyridoxine HCl (B6) 1 EACH tablet,ext release multiphase 1 tab PO QHS PRN (Reason: Sleep) levetiracetam 750 MG tablet 1,500 mg PO TID cyclobenzaprine 10 MG tablet 10 mg PO TID PRN (Reason: Muscle Spasm) albuterol sulfate [Ventolin HFA] 1 INHALER inhaler 2 puff inhalation Q4H PRN PRN (Reason: Wheezing) Qty: 1 0RF Primary Care Provider: Ari Sotomayor Referrals: Trevor Pisano DO [Med Staff - Active Staff] - 3-5 Days Ari Sotomayor DO [Primary Care Provider] - Disposition Disposition: Home, Self Care
[2022-06-28] MEDS: oxyCODONE 5 MG Tablet PO (22:26)
[2022-06-28 22:47] VITALS: RESP 16
== END 2022-06-28 23:11 | disposition home or self-care (01) ==
PROVIDERS: Emergency Provider Emergency Medicine; PCP Family Medicine; Visit Provider Emergency Medicine
DX: S67.191A Crushing injury of left index finger, initial encounter (principal); S67.193A Crushing injury of left middle finger, initial encounter; S62.653A Nondisplaced fracture of middle phalanx of left middle finger, initial encounter for closed fracture; W23.1XXA Caught, crushed, jammed, or pinched between stationary objects, initial encounter; Z86.16 Personal history of COVID-19; Z87.891 Personal history of nicotine dependence
CPT/HCPCS: 73130; 99282

== ENCOUNTER 2022-07-18 21:54 | Emergency (ER) | payer MEDICARE, MEDICAID, SELFPAY ==
[2022-07-18 21:54] VITALS: BP 139/100; PULSE 109; RESP 19; TEMP 36.5; O2SAT 97; BMI 26.6
[2022-07-18] MEDS: Orphenadrine 60 MG/2 ML Ampul IM (22:26)
[2022-07-18] MEDS: Ondansetron ODT 4 MG Tablet PO (22:26)
[2022-07-18] MEDS: HYDROmorphone 1 MG/ML Syringe IM (22:26)
--- NOTE | 2022-07-18 22:40 | RAD_ITS ---
STUDY: X-RAY - LUMBAR SPINE REASON FOR EXAM: Female, 52 years old. back pain TECHNIQUE: 3 view(s) of the lumbar spine were obtained. COMPARISON: None FINDINGS: Normal lumbar lordosis. There is no substantial scoliosis. There is a normal alignment of the vertebrae. Normal vertebral bodies and endplates. Normal disc space heights. Posterior interbody fusion rods and pedicular screws L4-L5 and S1 with laminectomies. The soft tissue structures are unremarkable. RAD/Lumbar Spine 2 or 3 Views IMPRESSION: Posterior interbody fusion rods and pedicular screws at L4-L5 and S1 Electronically Signed: Sanjiv Brown MD at 23:02 EST ,
--- NOTE | 2022-07-18 22:54 | EX.ED.DYSGE1 ---
HPI History of Present Illness Chief Complaint: Back Narrative Narrative: Patient is a 52-year-old female with past medical history of paroxysmal A. fib CVA gastroparesis and degenerative disc disease of the lumbar spine which required a fusion years ago. Patient states that her orthopedic surgeon told her that her hardware is loosening. She states this evening she coughed about 4 or 5 times and after this developed a sudden onset pain in the right low back/buttocks region. She states that she is having difficulty lifting her right leg secondary to pain and therefore comes in for evaluation as she has concerned that she may have caused further hardware derangement with her coughing spell and now pain. Patient denies any loss of bowel or bladder control or IV drug use [facility] Medical History Asthma Brain aneurysm Chronic pain COVID-19 Former smoker GERD (gastroesophageal reflux disease) Kidney disease Kidney stones Migraines Rheumatoid arthritis Seizures Sleep apnea Home Medications multivit with efdcnrcw-remi-KP-lutein 8 mg iron-400 mcg-300 mcg tablet 1 tab PO DAILY supplement 03/21/19 [History Last Taken 07/26/21] albuterol sulfate 90 mcg/actuation aerosol inhaler 1 - 2 puff inhalation Q4H PRN PRN Wheezing ##1 04/20/19 [Rx Last Taken 06/20/19] omeprazole 20 mg capsule,delayed release 20 mg PO BID GERD 05/31/19 [History Last Taken 07/26/21] levetiracetam 750 mg tablet 1,500 mg PO TID seizures 12/04/19 [History Last Taken 07/26/21] albuterol sulfate 90 mcg/actuation aerosol inhaler (Ventolin HFA) 2 puff inhalation Q4H PRN PRN Wheezing ##1 01/27/22 [Rx Last Taken Unknown] gabapentin 100 mg capsule 100 mg PO TID 10 days #30 caps 07/18/22 [Rx Last Taken Unknown] methocarbamol 500 mg tablet 1,000 mg PO 4X/DAY PRN PRN Muscle pain/spasm 7 days #56 tabs 07/18/22 [Rx Last Taken Unknown] Allergy/AdvReac Type Severity Reaction Status Date / Time Penicillins Allergy Anaphylaxis Verified 07/18/22 21:56 propoxyphene napsylate Allergy Rash Verified 07/18/22 21:56 [From Darvocet-N 100] adhesive tape [plastic tape] AdvReac Other Verified 07/18/22 21:56 hydrocodone bitartrate AdvReac Itching Verified 07/18/22 21:56 [From Vicodin] venom-honey bee AdvReac Chest Verified 07/18/22 21:56 [bee venom (honey bee)] tightness IV contrast AdvReac Vomiting Uncoded 07/18/22 21:56 Surgical History History of appendectomy History of cholecystectomy Social History household members: none Smoking Status: Former smoker substance use type: does not use ROS ROS ED Constitutional Constitutional ED: Denies chills or fever(s) ENT ENT ED: Denies sore throat Cardiovascular Cardiovascular: Denies chest pain Respiratory/Chest Respiratory/Chest: Denies cough or dyspnea Gastrointestinal Gastrointestinal: Denies abdominal pain, diarrhea, nausea or vomiting Genitourinary Genitourinary ED: Denies dysuria or hematuria Musculoskeletal Musculoskeletal: Reports back pain Integumentary Denies rash Neurologic Neurologic: Denies headache(s) or paresthesias Hematologic/Lymphatic Hematologic/Lymphatic: Denies easy bleeding or easy bruising EXAM Physical Exam Const Vital Signs: 07/18/22 21:54 Temperature 97.7 F L Temperature Source Temporal Pulse Rate 109 H Respiratory Rate 19 H Blood Pressure 139/100 H Blood Pressure Mean 113 Pulse Ox 97 Oxygen Delivery Method Room Air Positive well nourished and well developed General Appearance ED: well developed Eyes PERRL and EOMs intact bilaterally Neck supple Resp normal respiratory effort and clear to auscultation bilaterally Cardio regular rate and regular rhythm GI normal to inspection, nondistended, normoactive bowel sounds, non-tender, non-distended and no masses Auscultation: hypoactive bowel sounds Palpation: soft Back/Spine Back/Spine Narrative: No bony deformity or step-off of the thoracic or lumbar spine no midline pain on palpation. There is mild pain and spasm noted along the right paralumbar muscle belly region. There is pain with palpation along the right piriformis muscle belly that worsens with hip flexion as well as positive Jo sign present on right. Negative straight leg raise. No clonus or Babinski. No saddle anesthesia. Patellar reflexes are plus 2 out of 4 bilaterally. Extremity normal to inspection Neuro oriented x3 and CN's II-XII intact bilaterally Sensorium / Orientation: alert Psych mental status grossly normal Skin no rashes or lesions noted Skin Narrative: No overlying soft tissue changes to suggest trauma or infection MDM MDM MDM Narrative Medical decision making narrative: Patient presented to the ER with report of right sided low back pain after coughing. She denied any changes concerning for cauda equina or epidural abscess. She states that she has loose hardware and is concerned that it could have been dislodged from her sudden onset of cough and then increased pain. Secondary to this an x-ray was performed which shows the hardware to be intact and in place. She does not have signs of neuro claudication and with low risk for infectious process such as discitis osteomyelitis or epidural abscess or concern for nerve impingement she can be given symptomatic medications and follow-up on an outpatient basis Radiography Diagnostic Testing: Clinical Impression(s) from Imaging Studies Lumbar Spine X-Ray 07/18/22 22:40 IMPRESSION: Posterior interbody fusion rods and pedicular screws at L4-L5 and S1 Electronically Signed: Sanjiv Brown MD at 23:02 EST Reading Location ID and State: [facility] / [place] , Service support , Lumbar spine x-ray as interpreted by the emergency medicine physician reveals that her hardware is intact and in place with degenerative changes but no acute compression fracture or spinal thesis noted Discharge Plan Triage Chief Complaint: Back ED Provider: Alfredito Guerrero Dx/Rx/DC Orders Clinical Impression: Acute exacerbation of chronic low back pain, Piriformis syndrome Instructions: ED Back Pain (Acute or Chronic), ED Back Spasm, No Trauma Prescriptions: New gabapentin 100 mg capsule 100 mg PO TID 10 Days Qty: 30 0RF methocarbamol 500 mg tablet 1,000 mg PO 4X/DAY PRN PRN (Reason: Muscle pain/spasm) 7 Days Qty: 56 0RF No Action xizrbnmn-naa-ocac-FA-lutein 1 EACH tablet 1 tab PO DAILY albuterol sulfate 1 INHALER inhaler 1 - 2 puff inhalation Q4H PRN PRN (Reason: Wheezing) Qty: 1 0RF omeprazole 20 MG capsule,delayed release(DR/EC) 20 mg PO BID levetiracetam 750 MG tablet 1,500 mg PO TID albuterol sulfate [Ventolin HFA] 1 INHALER inhaler 2 puff inhalation Q4H PRN PRN (Reason: Wheezing) Qty: 1 0RF Primary Care Provider: Ari Sotomayor Referrals: Ari Sotomayor DO [Primary Care Provider] - Activity Restrictions/Additional Instructions: Please continue to stretch and heat your low back to help reduce pain and speed healing. Take the medications as directed along with Tylenol and or Motrin for symptom control and follow-up with your family doctor and orthopedics for repeat evaluation. If you have any further concerns please return to ER for repeat evaluation Disposition Disposition: Home, Self Care
== END 2022-07-19 00:14 | disposition home or self-care (01) ==
PROVIDERS: Emergency Provider Emergency Medicine; PCP Family Medicine; Visit Provider Emergency Medicine
DX: G89.29 Other chronic pain (principal); I48.0 Paroxysmal atrial fibrillation; M54.50 Low back pain, unspecified; Z87.891 Personal history of nicotine dependence; G57.00 Lesion of sciatic nerve, unspecified lower limb; Z86.16 Personal history of COVID-19; Z86.73 Personal history of transient ischemic attack (TIA), and cerebral infarction without residual deficits
CPT/HCPCS: 72100; 96372; 99283

== ENCOUNTER 2022-08-20 20:19 | Emergency (ER) | payer MEDICARE, MEDICAID, SELFPAY ==
[2022-08-20 20:20] VITALS: BP 125/74; PULSE 97; RESP 19; TEMP 36.6; O2SAT 98; BMI 26.6
--- NOTE | 2022-08-20 20:23 | RAD_ITS ---
INDICATION: SOB -- COUGH EXAMINATION/TECHNIQUE: X-RAY - XR Chest 1 View COMPARISON: 02/19/2022 FINDINGS: LINES/DEVICES: None. LUNGS: No consolidation, edema or effusion. No pneumothorax. MEDIASTINUM AND CARDIOVASCULAR STRUCTURES: Cardiac silhouette not enlarged. Central airways and mediastinal contour are unremarkable. BONES AND SOFT TISSUES: Lower ACDF. RAD/Chest 1 View (Portable) IMPRESSION: No radiographic evidence of acute cardiopulmonary disease. Electronically Signed: Ari Retana MD at 20:50 EST ,
[2022-08-20 22:01] VITALS: RESP 24
[2022-08-20 22:55] VITALS: PULSE 88; RESP 18; RESP 20; O2SAT 98
[2022-08-20] MEDS: Ipratropium/Albuterol Sulfate 3 ML AMPUL.NEB INHALATION (22:55)
[2022-08-20 23:01] LABS: Absolute Lymphocyte Count 3.73 X10^3/uL (0.83-4.51); Absolute Neutrophil Count 5.5 X10^3/uL (2.0-7.7); Basophil# 0.05 X10^3/uL; Basophil% 0.5 % (0-1); Eosinophil# 0.13 X10^3/uL; Eosinophils% 1.3 % (0-5); Hematocrit 43.7 % (37-47); Hemoglobin 14.9 g/dL (12.0-15.0); Lymphocyte # 3.73 X10^3/ul (0.83-4.51); Lymphocyte % 37.2 % (19-41); Mean Corp Hgb Conc 34.1 g/dL (32-36); Mean Corpuscular Hgb 31.4 pg (27.0-32.0); Mean Platelet Vol. 9.6 fl (6.2-12.0); Monocyte# 0.63 X10^3/uL; Monocyte% 6.3 % (0-10); NRBC Flagged by Analyzer 0 % (0-5); Neutrophil # 5.46 X10^3/uL (2.7-7.7); Neutrophil % 54.3 % (47-70); Platelet Count 389 K/mm3 (150-450); RBC Distribution Width CV 12.4 % (11.6-14.6); RBC Distribution Width SD 41.9 fl (35.1-43.9); Red Blood Count 4.75 M/mm3 (4.2-5.4)
[2022-08-20 23:14] LABS: Anion Gap 5 (5-15); BUN 8 mg/dL (7-18); BUN/Creat Ratio 11.6 RATIO (10-20); Chloride 110 mmol/L (98-107); Creatinine, Serum 0.69 mg/dL (0.55-1.02); EST Glomerular Filtration Rate 94 mL/min (>60); Est Glom Filt Rate - Afr Amer 114 mL/min (>60); Estimated Creatinine Clearance 98.54 ml/min; Glucose 99 mg/dL (74-106); Potassium 3.7 mmol/L (3.5-5.1); Sodium Level 143 mmol/L (136-145)
[2022-08-21] MEDS: Benzonatate 100 MG Capsule 200 MG PO (00:03)
--- NOTE | 2022-08-21 00:05 | EX.ED.DYSGE1 ---
HPI History of Present Illness Chief Complaint: Shortness of Breath Informant: patient Onset/Context/Timing Onset: Weeks (3) Context: Gradual Onset Timing: Continuous Quality: Sharp Location: Back Worsened by: Coughing Relieved by: Nothing Narrative Narrative: Patient presents with cough that has been getting worse over the past 3 weeks. Patient states she is coughing up yellow and green sputum. Patient states that her cough has been causing some pain in her back. Patient describes the pain as sharp. Patient states her pain is worse with coughing. Patient admits to some subjective chills but denies any fevers. Patient states she also has some pain in her chest with coughing. Patient states that sometimes after she coughs she has an episode of vomiting. [facility] Medical History Asthma Brain aneurysm Chronic pain COVID-19 Former smoker GERD (gastroesophageal reflux disease) Kidney disease Kidney stones Migraines Rheumatoid arthritis Seizures Sleep apnea Home Medications multivit with muxsgemg-vaoi-IB-lutein 8 mg iron-400 mcg-300 mcg tablet 1 tab PO DAILY supplement 03/21/19 [History Last Taken 07/26/21] albuterol sulfate 90 mcg/actuation aerosol inhaler 1 - 2 puff inhalation Q4H PRN PRN Wheezing ##1 04/20/19 [Rx Last Taken 06/20/19] omeprazole 20 mg capsule,delayed release 20 mg PO BID GERD 05/31/19 [History Last Taken 07/26/21] levetiracetam 750 mg tablet 1,500 mg PO TID seizures 12/04/19 [History Last Taken 07/26/21] albuterol sulfate 90 mcg/actuation aerosol inhaler (Ventolin HFA) 2 puff inhalation Q4H PRN PRN Wheezing ##1 01/27/22 [Rx Last Taken Unknown] gabapentin 100 mg capsule 100 mg PO TID 10 days #30 caps 07/18/22 [Rx Last Taken Unknown] methocarbamol 500 mg tablet 1,000 mg PO 4X/DAY PRN PRN Muscle pain/spasm 7 days #56 tabs 07/18/22 [Rx Last Taken Unknown] Allergy/AdvReac Type Severity Reaction Status Date / Time Penicillins Allergy Anaphylaxis Verified 08/20/22 20:23 propoxyphene napsylate Allergy Rash Verified 08/20/22 20:23 [From Darvocet-N 100] adhesive tape [plastic tape] AdvReac Other Verified 08/20/22 20:23 hydrocodone bitartrate AdvReac Itching Verified 08/20/22 20:23 [From Vicodin] venom-honey bee AdvReac Chest Verified 08/20/22 20:23 [bee venom (honey bee)] tightness IV contrast AdvReac Vomiting Uncoded 08/20/22 20:23 Surgical History History of appendectomy History of cholecystectomy Social History household members: none Smoking Status: Former smoker substance use type: does not use ROS ROS ED Constitutional Constitutional ED: Reports chills and subjective; Denies fever(s) Eyes Eyes: Denies blurry vision or change in vision ENT ENT ED: Denies rhinorrhea or sore throat Cardiovascular Cardiovascular: Reports chest pain; Denies palpitations Respiratory/Chest Respiratory/Chest: Reports cough, dyspnea and sputum Gastrointestinal Gastrointestinal: Reports vomiting; Denies nausea Genitourinary Genitourinary ED: Denies dysuria or hematuria Musculoskeletal Musculoskeletal: Reports back pain and neck pain Integumentary Denies abscess or rash Neurologic Neurologic: Denies headache(s) or weakness Allergic/Immunologic Allergic/Immunologic ED: Denies mouth swelling or urticaria EXAM Physical Exam Const Vital Signs: 08/20/22 20:20 08/20/22 22:01 08/20/22 22:01 Temperature 97.9 F Temperature Source Temporal Pulse Rate 97 Respiratory Rate 19 H 24 H Respiratory Effort Respiratory Depth Respiratory Pattern Blood Pressure 125/74 H Blood Pressure Mean 91 Pulse Ox 98 Oxygen Delivery Method Room Air Room Air Room Air 08/20/22 22:04 08/20/22 22:55 08/20/22 22:55 Temperature Temperature Source Pulse Rate 88 Respiratory Rate 18 20 H Respiratory Effort Short of Breath Labored Normal Non-Labored Short of Breath Respiratory Depth Shallow Normal Respiratory Pattern Tachypnea Normal Normal Blood Pressure Blood Pressure Mean Pulse Ox 98 Oxygen Delivery Method Room Air Positive well nourished and well developed General Appearance ED: well developed and NAD HEENT Reports moist mucous membranes Neck supple and no JVD Resp normal respiratory effort Auscultation: wheezes expiratory wheezes and throughout Cardio regular rate, regular rhythm and no murmurs GI normal to inspection, nondistended, normoactive bowel sounds and non-tender Palpation: soft Back/Spine Thoracic Spine / Upper Back: paraspinal muscle tenderness Extremity normal to inspection General Extremety ED: Negative for edema or tenderness General Extremity: Negative for edema Neuro oriented x3, CN's II-XII intact bilaterally and no sensory deficits noted Sensorium / Orientation: alert Motor Exam: strength 5/5 throughout Psych mental status grossly normal Skin no rashes or lesions noted MDM MDM MDM Narrative Medical decision making narrative: Patient was given a DuoNeb aerosol here. CBC was within normal limits. Basic metabolic profile was within normal limits. Portable 1 view chest x-ray was obtained. On my interpretation, lung guerra are clear. There is normal cardiac silhouette. Bony thorax is normal. There is no acute process noted. Radiologist also interpreted the x-ray and agrees. COVID-19 rapid antigen was obtained and was negative. Patient was feeling better on reevaluation. Patient was still complaining of a cough. Patient was given a dose of Tessalon here. Patient was instructed to follow up with her primary care physician in 5 to 7 days. Patient understood and was agreeable with the plan. All questions were answered. Lab Data Attestation: I reviewed the patient's lab results. Labs: Laboratory Results - last 24 hr 08/20/22 08/20/22 22:50 22:50 WBC 10.0 RBC 4.75 Hgb 14.9 Hct 43.7 MCV 92.0 MCH 31.4 MCHC 34.1 RDW Std Deviation 41.9 RDW Coeff of Bere 12.4 Plt Count 389 MPV 9.6 Immature Gran % (Auto) 0.400 Neut % (Auto) 54.3 Lymph % (Auto) 37.2 [place] % (Auto) 6.3 Eos % (Auto) 1.3 Baso % (Auto) 0.5 Absolute Neuts (auto) 5.5 Absolute Lymphs (auto) 3.73 Nucleated RBC % 0 Sodium 143 Potassium 3.7 Chloride 110 H Carbon Dioxide 28.0 Anion Gap 5 BUN 8 Creatinine 0.69 Estim Creat Clear Calc 98.54 Est GFR (MDRD) Af Amer 114 Est GFR (MDRD) Non-Af 94 BUN/Creatinine Ratio 11.6 Glucose 99 Calcium 9.0 Radiography Chest X-Ray - ED: 1 View, Read by ED Physician, Read by Radiologist and No Acute Disease Diagnostic Testing: Clinical Impression(s) from Imaging Studies Chest X-Ray 08/20/22 20:23 IMPRESSION: No radiographic evidence of acute cardiopulmonary disease. Electronically Signed: Ari Retana MD at 20:50 EST Reading Location ID and State: [facility] / [place] Tel , Service support , Discharge Plan Triage Chief Complaint: Shortness of Breath ED Provider: Alfred Parkinson Dx/Rx/DC Orders Clinical Impression: Viral upper respiratory tract infection, Cough, Acute thoracic myofascial strain Instructions: ED URI, Viral W/ Wheezing (Adult), ED URI, Viral, No Abx (Adult) Prescriptions: No Action umdhpzri-gwr-iqyy-FA-lutein 1 EACH tablet 1 tab PO DAILY albuterol sulfate 1 INHALER inhaler 1 - 2 puff inhalation Q4H PRN PRN (Reason: Wheezing) Qty: 1 0RF omeprazole 20 MG capsule,delayed release(DR/EC) 20 mg PO BID levetiracetam 750 MG tablet 1,500 mg PO TID albuterol sulfate [Ventolin HFA] 1 INHALER inhaler 2 puff inhalation Q4H PRN PRN (Reason: Wheezing) Qty: 1 0RF gabapentin 100 mg capsule 100 mg PO TID 10 Days Qty: 30 0RF methocarbamol 500 mg tablet 1,000 mg PO 4X/DAY PRN PRN (Reason: Muscle pain/spasm) 7 Days Qty: 56 0RF Primary Care Provider: Ari Sotomayor Referrals: Ari Sotomayor DO [Primary Care Provider] - 5-7 Days Disposition Disposition: Home, Self Care
== END 2022-08-21 00:18 | disposition home or self-care (01) ==
PROVIDERS: Emergency Provider Emergency Medicine; PCP Family Medicine; Visit Provider Emergency Medicine
DX: J06.9 Acute upper respiratory infection, unspecified (principal); S29.019A Strain of muscle and tendon of unspecified wall of thorax, initial encounter; R06.02 Shortness of breath; M54.9 Dorsalgia, unspecified; Z87.891 Personal history of nicotine dependence; J45.909 Unspecified asthma, uncomplicated; R07.9 Chest pain, unspecified; R11.10 Vomiting, unspecified; Z20.822 Contact with and (suspected) exposure to COVID-19; X58.XXXA Exposure to other specified factors, initial encounter
CPT/HCPCS: 71045; 80048; 85025; 87811; 94640; 99251; 99283; A4216; G0463

== ENCOUNTER 2022-08-24 11:36 | Emergency (ER) | payer MEDICARE, MEDICAID, SELFPAY ==
[2022-08-24 11:37] VITALS: BP 159/88; PULSE 94; RESP 18; TEMP 36; O2SAT 98; BMI 26.6
[2022-08-24 11:47] VITALS: BP 132/86; PULSE 95; RESP 16; O2SAT 97
--- NOTE | 2022-08-24 12:20 | EKG12_ITS ---
Test Reason : CHEST PAIN Blood Pressure : / mmHG Vent. Rate : 087 BPM Atrial Rate : 087 BPM P-R Int : 148 ms QRS Dur : 092 ms QT Int : 378 ms P-R-T Axes : 065 058 069 degrees QTc Int : 454 ms Normal sinus rhythm RSR' or QR pattern in V1 suggests right ventricular conduction delay Borderline ECG Confirmed by FRANKLIN RICHARDSON, MALLORY ([id number]), story editor MARQUIS AVILA ([id number]) on 08/28/2022 10:17:32 AM Referred By: OSCAR Confirmed By:MALLORY REID MD
--- NOTE | 2022-08-24 12:20 | CT_ITS ---
STUDY: CT ABDOMEN AND PELVIS WITH CONTRAST REASON FOR EXAM: Female, 52 years old. abd pain RADIATION DOSAGE (If Supplied By Facility): CTDIvol = ( 15.14 ) mGy, DLP = ( 1556.45 ) mGycm TECHNIQUE: Transaxial 3.75 mm images were obtained from the dome of the diaphragm to the symphysis pubis without oral contrast. IV 100mL Isovue-370 was administered. Sagittal and coronal images were reconstructed. Individualized dose optimization techniques were used for this CT. COMPARISON: CT abdomen pelvis 12/26/2020. 06/18/2020. FINDINGS: The visualized lung bases are unremarkable. The visualized portions of the heart are within normal limits. There is decreased attenuation of the enlarged liver consistent with steatosis. There are surgical clips in the gallbladder fossa consistent with a prior cholecystectomy. Normal spleen. Normal pancreas. Normal bilateral adrenal glands. Stable small right pleural cyst. Normal left kidney. Normal visualized stomach. Normal small intestine. There are multiple left colonic diverticula consistent with diverticulosis. The appendix is visualized and appears normal. Normal abdominal aorta. Normal inferior vena cava. Normal retroperitoneum. Fluid distended urinary bladder. Stimulator type device left anterior abdominal wall with leads leading to the left subhepatic space. Stable postsurgical changes prior posterior fusion L4-S1. CT/Abdomen/Pelvis W IV Cont ONLY IMPRESSION: There is no appendicitis, diverticulitis, ascites, abscess, collection, perforation or obstruction. Stable hepatomegaly, hepatic steatosis, postsurgical changes, right renal cyst and obesity. Electronically Signed: Kelsey Zuniga MD at 13:29 EST Reading Location ID and State: , Service support ,
--- NOTE | 2022-08-24 12:21 | CT_ITS ---
STUDY: CTA CHEST REASON FOR EXAM: Female, 52 years old. r/o pe RADIATION DOSAGE (If Supplied By Facility): CTDIvol = ( 15.14 ) mGy, DLP = ( 1556.45 ) mGycm TECHNIQUE: The examination was performed with the intravenous administration of IV 100mL Isovue-370. Post-processing of the angiographic images was performed, with multiplanar reformation and 3D reconstruction. Individualized dose optimization techniques were used for this CT. COMPARISON: CT chest 07/27/2021. 03/22/2019. FINDINGS: Normal enhancement of the main pulmonary artery and right and left pulmonary arteries. Normal enhancement of the bilateral peripheral pulmonary arteries. There is no demonstrated pulmonary embolism. Normal thoracic aorta and visualized great vessels. There is no demonstrated aortic dissection. Normal heart and pericardium. Normal mediastinum. Normal hilar regions. Mild bronchial wall thickening in the bilateral lower lobes with minimal luminal opacification in the right lower lobe. The lungs are well expanded. Left greater than right upper lobe scattered blebs with centrilobular emphysema without significant interval change. Nonspecific compression of parenchyma and haziness in the bilateral lower lobes. No air bronchograms detected. Normal pleura. Normal chest wall structures. Normal osseous structures. For a description of findings in the abdomen, please refer to the dedicated CT report performed by the abdominal imaging section the same day. CT/CTA Chest W/WO Contrast IMPRESSION: No demonstrated pulmonary embolism, aneurysm, leak or arterial dissection. Bilateral chronic interstitial lung disease with blebs formation. Mild bronchial wall thickening in the lower lobes possible due to an inflammatory process. No pulmonary edema, congestive heart failure or confluent pneumonia. Previously seen significant bilateral infiltrates have resolved. Electronically Signed: Kelsey Zuniga MD at 13:35 EST Reading Location ID and State: , Service support ,
[2022-08-24] MEDS: Ondansetron 4 MG/2 ML Vial IV (12:29)
[2022-08-24] MEDS: Morphine 4 MG/ML Syringe IV (12:30)
[2022-08-24] MEDS: 0.9% Normal Saline 1,000 ML 1000 ML IV (12:31)
--- NOTE | 2022-08-24 12:32 | EDS_ITS ---
HPI History of Present Illness Chief Complaint: Chest Pain Narrative Narrative: 52-year-old female presenting with epigastric pain. Started approximately 1 hour prior to arrival. She complains of a bulge in her epigastric region. She states pain radiates to her chest. She has had nausea and vomiting. History of gastroparesis with gastric pacemaker. Prior similar symptoms: Yes Recent Illness/Hospitalization: No PFSH PFSH Medical History Asthma Brain aneurysm Chronic pain COVID-19 Former smoker GERD (gastroesophageal reflux disease) Kidney disease Kidney stones Migraines Rheumatoid arthritis Seizures Sleep apnea Home Medications multivit with ypltxekh-lwql-PR-lutein 8 mg iron-400 mcg-300 mcg tablet 1 tab PO DAILY supplement 03/21/19 [History Last Taken 07/26/21] omeprazole 20 mg capsule,delayed release 20 mg PO BID GERD 05/31/19 [History L ast Taken 07/26/21] levetiracetam 750 mg tablet 1,500 mg PO TID seizures 12/04/19 [History Last Taken 07/26/21] fluticasone propionate 50 mcg/actuation nasal spray,suspension (Flonase Allergy Relief) 1 spray intranasal DAILY 08/24/22 [History Last Taken Unknown] oxycodone-acetaminophen 5 mg-325 mg tablet 1 tab PO Q6H PRN PRN Pain 3 days #10 TABLETS 08/24/22 [Rx Last Taken Unknown] Allergy/AdvReac Type Severity Reaction Status Date / Time Penicillins Allergy Anaphylaxis Verified 08/24/22 11:38 propoxyphene napsylate Allergy Rash Verified 08/24/22 11:38 [From Darvocet-N 100] adhesive tape [plastic tape] AdvReac Other Verified 08/24/22 11:38 hydrocodone bitartrate AdvReac Itching Verified 08/24/22 11:38 [From Vicodin] venom-honey bee AdvReac Chest Verified 08/24/22 11:38 [bee venom (honey bee)] tightness IV contrast AdvReac Vomiting Uncoded 08/24/22 11:38 Surgical History History of appendectomy History of cholecystectomy Social History household members: none Smoking Status: Former smoker substance use type: does not use ROS ROS ED Constitutional Constitutional ED: Denies fever(s) Eyes Eyes: Denies change in vision ENT ENT ED: Denies rhinorrhea or sore throat Cardiovascular Cardiovascular: Reports chest pain; Denies palpitations Respiratory/Chest Respiratory/Chest: Denies cough or dyspnea Gastrointestinal Gastrointestinal: Reports abdominal pain and nausea; Denies diarrhea or vomiting Genitourinary Genitourinary ED: Denies dysuria Musculoskeletal Musculoskeletal: Denies myalgias Integumentary Denies rash Neurologic Neurologic: Denies headache(s) Psychiatric Psychiatric: Denies suicidal thoughts EXAM Physical Exam Const Vital Signs: 08/24/22 11:37 08/24/22 11:47 08/24/22 11:48 Temperature 96.8 F L Temperature Source Temporal Pulse Rate 94 95 Respiratory Rate 18 16 Respiratory Effort Normal Blood Pressure 159/88 H 132/86 H Blood Pressure Mean 111 101 Pulse Ox 98 97 Oxygen Delivery Method Room Air 08/24/22 12:36 08/24/22 13:36 Temperature Temperature Source Pulse Rate 84 Respiratory Rate 16 18 Respiratory Effort Blood Pressure 136/82 H Blood Pressure Mean 100 Pulse Ox 96 Oxygen Delivery Method Room Air Positive well nourished and well developed General Appearance ED: well developed HEENT Reports normocephalic and head/scalp atraumatic Eyes PERRL and EOMs intact bilaterally Neck supple General: Negative for tenderness Chest Wall inspection of chest normal Resp normal respiratory effort and clear to auscultation bilaterally Cardio regular rate and regular rhythm GI non-distended Palpation: soft and tender epigastric; Negative for guarding or rebound tender ness present no CVA tenderness Extremity normal to inspection Neuro oriented x3 Sensorium / Orientation: alert Psych mental status grossly normal Skin no rashes or lesions noted MDM MDM MDM Narrative Medical decision making narrative: Patient is given IV fluids, morphine, Zofran. CBC, chemistries unremarkable. Lipase is normal. Troponin is negative. Delta troponin is also negative. CT abdomen pelvis shows no appendicitis, diverticulitis, ascites, abscess, collection, perforation, or obstruction. CTA chest shows no PE or dissection. Patient is resting comfortably on reevaluation. She is comfortable with discharge to follow-up with her primary care physician. Advised return to the ED for worsening complaints. Lab Data Attestation: I reviewed the patient's lab results. Labs: Laboratory Results - last 24 hr 08/24/22 08/24/22 08/24/22 11:55 11:55 15:30 WBC 10.0 RBC 5.31 Hgb 16.4 H Hct 49.5 H MCV 93.2 MCH 30.9 MCHC 33.1 RDW Std Deviation 43.2 RDW Coeff of Bere 12.6 Plt Count 442 MPV 9.8 Immature Gran % (Auto) 0.500 Neut % (Auto) 61.6 Lymph % (Auto) 29.5 [place] % (Auto) 6.8 Eos % (Auto) 1.0 Baso % (Auto) 0.6 Absolute Neuts (auto) 6.2 Absolute Lymphs (auto) 2.95 Nucleated RBC % 0 Sodium 141 Potassium 4.1 Chloride 110 H Carbon Dioxide 24.0 Anion Gap 7 BUN 6 L Creatinine 0.64 Estim Creat Clear Calc 106.24 Est GFR (MDRD) Af Amer 125 Est GFR (MDRD) Non-Af 103 BUN/Creatinine Ratio 9.4 L Glucose 99 Calcium 8.8 Total Bilirubin 0.30 AST 18 ALT 21 Alkaline Phosphatase 186 H Troponin I High Sens 3 4 Total Protein 7.6 Albumin 3.7 Globulin 3.9 Albumin/Globulin Ratio 0.9 Lipase 164 Radiography Diagnostic Testing: Clinical Impression(s) from Imaging Studies Abdomen/Pelvis CT 08/24/22 12:20 IMPRESSION: There is no appendicitis, diverticulitis, ascites, abscess, collection, perforation or obstruction. Stable hepatomegaly, hepatic steatosis, postsurgical changes, right renal cyst and obesity. Electronically Signed: Kelsey Zuniga MD at 13:29 EST Reading Location ID and State: / , Service support , Chest CTA 08/24/22 12:21 IMPRESSION: No demonstrated pulmonary embolism, aneurysm, leak or arterial dissection. Bilateral chronic interstitial lung disease with blebs formation. Mild bronchial wall thickening in the lower lobes possible due to an inflammatory process. No pulmonary edema, congestive heart failure or confluent pneumonia. Previously seen significant bilateral infiltrates have resolved. Electronically Signed: Kelsey Zuniga MD at 13:35 EST Reading Location ID and State: , Service support , EKG Initial EKG: Attestation: I personally reviewed and interpreted this EKG as follows: Interpretation: Sinus Rhythm and No Acute Injury Pattern Discharge Plan Triage Chief Complaint: Chest Pain ED Provider: Ellen Chaney Dx/Rx/DC Orders Clinical Impression: Abdominal pain Instructions: ED Abdominal Pain Unkn Cause Fem Prescriptions: New oxycodone-acetaminophen 5-325 mg tablet 1 tab PO Q6H PRN PRN (Reason: Pain) 3 Days Qty: 10 0RF No Action fqpcytpr-kxb-icek-FA-lutein 1 EACH tablet 1 tab PO DAILY omeprazole 20 MG capsule,delayed release(DR/EC) 20 mg PO BID levetiracetam 750 MG tablet 1,500 mg PO TID fluticasone propionate [Flonase Allergy Relief] 50 mcg/actuation [place],Suspension 1 spray INTRANASAL DAILY Rx Instructions: administer into each nostril Primary Care Provider: Ari Sotomayor Referrals: Ari Sotomayor DO [Primary Care Provider] - Disposition Disposition: Home, Self Care
[2022-08-24 12:36] VITALS: RESP 16
[2022-08-24 12:42] LABS: Absolute Lymphocyte Count 2.95 X10^3/uL (0.83-4.51); Absolute Neutrophil Count 6.2 X10^3/uL (2.0-7.7); Basophil# 0.06 X10^3/uL; Basophil% 0.6 % (0-1); Hematocrit 49.5 % (37-47); Hemoglobin 16.4 g/dL (12.0-15.0); Lymphocyte # 2.95 X10^3/ul (0.83-4.51); Lymphocyte % 29.5 % (19-41); Mean Corp Hgb Conc 33.1 g/dL (32-36); Mean Corpuscular Hgb 30.9 pg (27.0-32.0); Mean Corpuscular Volume 93.2 fL (81-99); Mean Platelet Vol. 9.8 fl (6.2-12.0); Monocyte# 0.68 X10^3/uL; Monocyte% 6.8 % (0-10); NRBC Flagged by Analyzer 0 % (0-5); Neutrophil # 6.15 X10^3/uL (2.7-7.7); Neutrophil % 61.6 % (47-70); Platelet Count 442 K/mm3 (150-450); RBC Distribution Width CV 12.6 % (11.6-14.6); RBC Distribution Width SD 43.2 fl (35.1-43.9); Red Blood Count 5.31 M/mm3 (4.2-5.4)
[2022-08-24 13:00] LABS: ALB/GLOB Ratio 0.9 RATIO (0.9-2.4); AST(SGOT) 18 U/L (15-37); Alanine Aminotransfer ALT/SGPT 21 U/L (13-56); Albumin, Serum 3.7 g/dL (3.2-5.0); Alkaline Phosphatase 186 U/L (45-117); Anion Gap 7 (5-15); BUN 6 mg/dL (7-18); BUN/Creat Ratio 9.4 RATIO (10-20); Calcium,Total 8.8 mg/dL (8.5-10.1); Chloride 110 mmol/L (98-107); Creatinine, Serum 0.64 mg/dL (0.55-1.02); EST Glomerular Filtration Rate 103 mL/min (>60); Est Glom Filt Rate - Afr Amer 125 mL/min (>60); Estimated Creatinine Clearance 106.24 ml/min; Globulin 3.9 g/dL (2.2-4.2); Glucose 99 mg/dL (74-106); Lipase 164 U/L (73-393); Potassium 4.1 mmol/L (3.5-5.1); Protein, Total 7.6 g/dL (6.4-8.2); Sodium Level 141 mmol/L (136-145); Troponin-I HS (w/2H Reflex) 3 pg/mL (3.0-54.0)
[2022-08-24 13:36] VITALS: BP 136/82; PULSE 84; RESP 18; O2SAT 96
[2022-08-24] MEDS: HYDROmorphone 1 MG/ML Syringe IV (14:04)
[2022-08-24 14:36] LABS: Reflex Troponin-HS? (from REC) Y
[2022-08-24 16:10] LABS: Troponin-I HS 4 pg/mL (3.0-54.0)
[2022-08-24] MEDS: HYDROmorphone 0.5 MG/0.5 ML SYRINGE IV (17:19)
[2022-08-24 18:00] VITALS: BP 132/74; PULSE 82; RESP 18; O2SAT 99
== END 2022-08-24 18:01 | disposition home or self-care (01) ==
PROVIDERS: Emergency Provider Emergency Medicine; PCP Family Medicine; Visit Provider Emergency Medicine
DX: R10.13 Epigastric pain (principal); R56.9 Unspecified convulsions; G47.30 Sleep apnea, unspecified; K21.9 Gastro-esophageal reflux disease without esophagitis; Z87.891 Personal history of nicotine dependence; Z86.16 Personal history of COVID-19; Z79.899 Other long term (current) drug therapy
CPT/HCPCS: 71275; 74177; 80053; 83690; 84484; 85025; 93005; 96361; 96374; 96375; 96376; 99284; J7030; Q9967; A4216; J2405

== ENCOUNTER 2022-09-23 13:10 | Emergency (ER) | payer MEDICARE, MEDICAID, SELFPAY ==
[2022-09-23 13:11] VITALS: BP 169/112; PULSE 90; RESP 16; TEMP 36.6; O2SAT 100; BMI 25.8
--- NOTE | 2022-09-23 13:24 | EKG12_ITS ---
Test Reason : CP Blood Pressure : / mmHG Vent. Rate : 086 BPM Atrial Rate : 086 BPM P-R Int : 150 ms QRS Dur : 094 ms QT Int : 386 ms P-R-T Axes : 069 064 065 degrees QTc Int : 461 ms Normal sinus rhythm with sinus arrhythmia RSR' or QR pattern in V1 suggests right ventricular conduction delay Borderline ECG Confirmed by ANISA MOLINA MD ([id number]), editorial writer MAYRA SMALL ([id number]) on 09/24/2022 2:03:06 PM Referred By: Confirmed By:ANISA MOLINA MD
[2022-09-23 13:53] LABS: Absolute Lymphocyte Count 1.88 X10^3/uL (0.83-4.51); Basophil# 0.05 X10^3/uL; Basophil% 0.5 % (0-1); Eosinophil# 0.05 X10^3/uL; Eosinophils% 0.5 % (0-5); Hematocrit 47.7 % (37-47); Lymphocyte # 1.88 X10^3/ul (0.83-4.51); Lymphocyte % 19.6 % (19-41); Mean Corp Hgb Conc 33.5 g/dL (32-36); Mean Corpuscular Hgb 30.7 pg (27.0-32.0); Mean Corpuscular Volume 91.6 fL (81-99); Monocyte# 0.59 X10^3/uL; Monocyte% 6.1 % (0-10); NRBC Flagged by Analyzer 0 % (0-5); Neutrophil % 72.9 % (47-70); Platelet Count 327 K/mm3 (150-450); RBC Distribution Width CV 12.8 % (11.6-14.6); RBC Distribution Width SD 42.8 fl (35.1-43.9); Red Blood Count 5.21 M/mm3 (4.2-5.4); White Blood Count 9.6 K/mm3 (4.4-11.0)
[2022-09-23 14:00] VITALS: BP 138/102; PULSE 84; RESP 18; O2SAT 97
[2022-09-23 14:01] VITALS: O2SAT 97
[2022-09-23] MEDS: Aspirin 81 MG TAB.CHEW 324 MG PO (14:04)
[2022-09-23 14:06] LABS: Anion Gap 8 (5-15); BUN 8 mg/dL (7-18); BUN/Creat Ratio 12.6 RATIO (10-20); Calcium,Total 9.3 mg/dL (8.5-10.1); Chloride 108 mmol/L (98-107); Creatinine, Serum 0.63 mg/dL (0.55-1.02); EST Glomerular Filtration Rate 104 mL/min (>60); Est Glom Filt Rate - Afr Amer 126 mL/min (>60); Estimated Creatinine Clearance 107.93 ml/min; Glucose 108 mg/dL (74-106); Potassium 4.2 mmol/L (3.5-5.1); Sodium Level 139 mmol/L (136-145); Troponin-I HS (w/2H Reflex) 4 pg/mL (3.0-54.0)
--- NOTE | 2022-09-23 14:10 | RAD_ITS ---
STUDY: X-RAY CHEST REASON FOR EXAM: Female, 52 years old. CHEST PAIN chest pain TECHNIQUE: XR Chest 2 Views COMPARISON: 08.20.22 FINDINGS: There is no demonstrated pleural abnormality. Minimal nodularity in the right lower lobe suggesting infiltrate. Cervical spine fusion hardware noted. Normal size heart. Normal mediastinum and kimani. Normal visualized pulmonary arteries. Normal visualized aortic arch and descending thoracic aorta. Normal visualized thoracic spine. Normal visualized ribs, clavicles, and shoulders. There is no demonstrated abnormality of the visualized soft tissue structures of the upper abdomen. RAD/Chest PA and Lateral IMPRESSION: Right sided pneumonia. Electronically Signed: José Antonio Ross MD at 14:31 EST ,
[2022-09-23 14:30] LABS: AST(SGOT) 24 U/L (15-37); Alanine Aminotransfer ALT/SGPT 25 U/L (13-56); Alkaline Phosphatase 195 U/L (45-117); Bilirubin, Direct 0.12 mg/dL (0.00-0.30); Globulin 3.7 g/dL (2.2-4.2); Lipase 115 U/L (73-393); Protein, Total 7.7 g/dL (6.4-8.2)
[2022-09-23] MEDS: Ondansetron 4 MG/2 ML Vial IV (14:39)
[2022-09-23] MEDS: Morphine 4 MG/ML Syringe IV (14:39)
[2022-09-23 15:40] LABS: Reflex Troponin-HS? (from REC) Y
[2022-09-23 15:55] VITALS: BP 125/82; PULSE 87; RESP 14; O2SAT 95
[2022-09-23 16:18] VITALS: BP 125/82; PULSE 86; RESP 14; O2SAT 95
[2022-09-23 16:35] LABS: Troponin-I HS < 3 pg/mL (3.0-54.0)
[2022-09-23] MEDS: Lidocaine 5% Patch 1 PATCH TOPICAL (17:06)
[2022-09-23] MEDS: levoFLOXacin 750 MG Tablet PO (17:06)
[2022-09-23] MEDS: Ketorolac 15 MG/ML Vial IV (17:07)
[2022-09-23] MEDS: oxyCODONE 5 MG Tablet PO (17:07)
--- NOTE | 2022-09-23 17:08 | ED.VIS.CHEST ---
HPI History of Present Illness Chief Complaint: Chest Pain Informant: patient Narrative Narrative: Patient is a 52-year-old female with extensive medical history including seizure disorder, depression, migraines, prior stroke, proximal atrial fibrillation (not on any anticoagulation), gastroparesis with stomach pacemaker and chronic back pain (not on any maintenance pain medicine besides Tylenol). She is presenting today with worsening epigastric pain. She notes that she is been coughing for the past 2 days with with nonproductive. She has the pain is worse whenever she coughs or sneezes. It is worse today and now rating to her left arm and back. She is the pain is sharp in nature lasting for 2 to 3 minutes. She has had episodes like this before but never found a cause. She did have some nausea and vomiting this morning. Her bowel movements have been okay. She states this does not feel like her gastroparesis. Denies any fevers. Did not take any for pain prior to arrival. [facility] Medical History Asthma Brain aneurysm Chronic pain COVID-19 Former smoker GERD (gastroesophageal reflux disease) Kidney disease Kidney stones Migraines Rheumatoid arthritis Seizures Sleep apnea Home Medications multivit with vyuesmax-fmnz-CU-lutein 8 mg iron-400 mcg-300 mcg tablet 1 tab PO DAILY supplement 03/21/19 [History Last Taken 07/26/21] omeprazole 20 mg capsule,delayed release 20 mg PO BID GERD 05/31/19 [History Last Taken 07/26/21] levetiracetam 750 mg tablet 1,500 mg PO TID seizures 12/04/19 [History Last Taken 07/26/21] fluticasone propionate 50 mcg/actuation nasal spray,suspension (Flonase Allergy Relief) 1 spray intranasal DAILY 08/24/22 [History Last Taken Unknown] oxycodone-acetaminophen 5 mg-325 mg tablet 1 tab PO Q6H PRN PRN Pain 3 days #10 TABLETS 08/24/22 [Rx Last Taken Unknown] levofloxacin 750 mg tablet 750 mg PO DAILY #6 tabs 09/23/22 [Rx Last Taken Unknown] oxycodone-acetaminophen 5 mg-325 mg tablet (Percocet) 1 tab PO Q6H PRN pain 3 days #12 tabs 09/23/22 [Rx Last Taken Unknown] Allergy/AdvReac Type Severity Reaction Status Date / Time Penicillins Allergy Anaphylaxis Verified 09/23/22 13:12 propoxyphene napsylate Allergy Rash Verified 09/23/22 13:12 [From Darvocet-N 100] adhesive tape [plastic tape] AdvReac Other Verified 09/23/22 13:12 hydrocodone bitartrate AdvReac Itching Verified 09/23/22 13:12 [From Vicodin] venom-honey bee AdvReac Chest Verified 09/23/22 13:12 [bee venom (honey bee)] tightness IV contrast AdvReac Vomiting Uncoded 09/23/22 13:12 Surgical History History of appendectomy History of cholecystectomy Social History household members: none Smoking Status: Former smoker substance use type: does not use ROS ROS ED Constitutional Constitutional ED: Denies chills or fever(s) Eyes Eyes: Denies diplopia ENT ENT ED: Denies rhinorrhea or sore throat Cardiovascular Cardiovascular: Reports as per HPI and chest pain; Denies palpitations Respiratory/Chest Respiratory/Chest: Reports cough; Denies dyspnea or dyspnea on exertion Gastrointestinal Gastrointestinal: Reports abdominal pain, nausea and vomiting Musculoskeletal Musculoskeletal: Reports back pain; Denies arthralgias or myalgias Integumentary Denies rash Neurologic Neurologic: Denies headache(s) or weakness Psychiatric Psychiatric: Reports anxiety; Denies depression Hematologic/Lymphatic Hematologic/Lymphatic: Denies easy bleeding or easy bruising EXAM Physical Exam Const Vital Signs: 09/23/22 13:11 09/23/22 14:00 09/23/22 14:01 Temperature 98 F Temperature Source Temporal Pulse Rate 90 84 Respiratory Rate 16 18 Blood Pressure 169/112 H 138/102 H Blood Pressure Mean 131 114 Pulse Ox 100 97 97 Oxygen Delivery Method Room Air Room Air Room Air 09/23/22 15:55 09/23/22 16:18 Temperature Temperature Source Pulse Rate 87 86 Respiratory Rate 14 14 Blood Pressure 125/82 H 125/82 H Blood Pressure Mean 96 96 Pulse Ox 95 95 Oxygen Delivery Method Room Air Room Air Positive well nourished and well developed Constitutional Narrative: Tearful, no acute distress General Appearance ED: well developed HEENT Reports moist mucous membranes normocephalic and atraumatic Eyes PERRL and EOMs intact bilaterally Neck supple and no JVD Chest Wall inspection of chest normal Chest Narrative: No chest wall crepitus. Patient has tenderness to palpation of her right inferior rib margin that is highly reproducible Resp normal respiratory effort and clear to auscultation bilaterally Cardio regular rate, regular rhythm and no murmurs Peripheral Pulses: pulses 2+ throughout GI normal to inspection, nondistended, normoactive bowel sounds and soft to palpation GI Narrative: Slight epigastric abdominal discomfort on palpation. Negative Cortez sign. Back/Spine no CVA tenderness Extremity normal to inspection General Extremety ED: Negative for edema General Extremity: Negative for edema Neuro oriented x3 Sensorium / Orientation: awake and alert Motor Exam: Negative for general weakness Psych mental status grossly normal Mood & Affect: anxious and tearful Skin no rashes or lesions noted Heart Score History: Slightly/Non-Suspicious ECG: Normal Age: >45 - <65 years Risk Factors: 1 or 2 Risk Factors Troponin: </= Normal Limit Score: 2 MDM MDM MDM Narrative Medical decision making narrative: Patient is evaluated for chest pain. I suspect this is more muscle skeletal as its highly reproducible with palpation over patient is significant discomfort and is crying. I have a lower suspicion for ACS given the reproducibility of the pain. Patient is given morphine with no significant pain improvement. Cardiac work-up including delta high-sensitivity troponin is normal. Her initial high-sensitivity troponin is 4 and on repeat is less than 3. Patient has a mildly elevated hemoglobin of 16.0 but no leukocytosis or left shift. CMP is remarkable only for an elevation of her alkaline phosphatase at 195. This is of uncertain clinical significance. Two-view chest x-ray interpreted by myself as well as radiology does show right-sided infiltrate. I question of patient either has referred pleuritic pain from her pneumonia or chest wall pain from coughing secondary to her pneumonia. She is ambulated in the ER and does not desaturate. At this time I do not think she requires further admission for either extended cardiac evaluation or inpatient treatment for pneumonia. Patient is given a Lidoderm patch, Toradol, dose of oxycodone and started on Levaquin for her pneumonia. Levaquin was chosen as she has a history of anaphylaxis to penicillins. Patient is agreeable this plan of care. She is discharged home in stable condition. She is given return precautions to the emergency room. Patient's curb 65 score is 0 and she is low risk for 30-day mortality associated with pneumonia which also recommends outpatient treatment for pneumonia. Lab Data Attestation: I reviewed the patient's lab results. Labs: Laboratory Results - last 24 hr 09/23/22 09/23/22 09/23/22 13:30 13:30 13:30 WBC 9.6 RBC 5.21 Hgb 16.0 H Hct 47.7 H MCV 91.6 MCH 30.7 MCHC 33.5 RDW Std Deviation 42.8 RDW Coeff of Bere 12.8 Plt Count 327 MPV 10.0 Immature Gran % (Auto) 0.400 Neut % (Auto) 72.9 H Lymph % (Auto) 19.6 [place] % (Auto) 6.1 Eos % (Auto) 0.5 Baso % (Auto) 0.5 Absolute Neuts (auto) 7.0 Absolute Lymphs (auto) 1.88 Nucleated RBC % 0 Sodium 139 Potassium 4.2 Chloride 108 H Carbon Dioxide 23.0 Anion Gap 8 BUN 8 Creatinine 0.63 Estim Creat Clear Calc 107.93 Est GFR (MDRD) Af Amer 126 Est GFR (MDRD) Non-Af 104 BUN/Creatinine Ratio 12.6 Glucose 108 H Calcium 9.3 Total Bilirubin 0.30 Direct Bilirubin 0.12 AST 24 ALT 25 Alkaline Phosphatase 195 H Troponin I High Sens 4 Total Protein 7.7 Albumin 4.0 Globulin 3.7 Lipase 115 09/23/22 15:50 WBC RBC Hgb Hct MCV MCH MCHC RDW Std Deviation RDW Coeff of Bere Plt Count MPV Immature Gran % (Auto) Neut % (Auto) Lymph % (Auto) [place] % (Auto) Eos % (Auto) Baso % (Auto) Absolute Neuts (auto) Absolute Lymphs (auto) Nucleated RBC % Sodium Potassium Chloride Carbon Dioxide Anion Gap BUN Creatinine Estim Creat Clear Calc Est GFR (MDRD) Af Amer Est GFR (MDRD) Non-Af BUN/Creatinine Ratio Glucose Calcium Total Bilirubin Direct Bilirubin AST ALT Alkaline Phosphatase Troponin I High Sens < 3 L Total Protein Albumin Globulin Lipase Radiography Diagnostic Testing: Clinical Impression(s) from Imaging Studies Chest X-Ray 09/23/22 14:10 IMPRESSION: Right sided pneumonia. Electronically Signed: José Antonio Ross MD at 14:31 EST Reading Location ID and State: [facility] / [place] , Service support , Rhythm Strip Rhythm Strip: Sinus Rhythm Rate: 86 Ectopy: None EKG Initial EKG: Attestation: I personally reviewed and interpreted this EKG as follows: Interpretation: Sinus Rhythm Comments: Normal sinus rhythm with sinus arrhythmia at a rate of 86 bpm Normal axis Normal intervals Normal ST segments Nonspecific T wave inversion in V1 and V2 which could be normal variant RSR prime pattern in V1 suggestive of right ventricular conduction delay Prior EKG tracings: not available for review Prior: No Prior Discharge Plan Triage Chief Complaint: Chest Pain ED Provider: Mattie Jeffrey Dx/Rx/DC Orders Clinical Impression: RLL pneumonia, Anterior chest wall pain Instructions: ED Pneumonia (Adult), ED Chest Wall Strain Prescriptions: New oxycodone-acetaminophen [Percocet] 5-325 mg tablet 1 tab PO Q6H PRN (Reason: pain) 3 Days Qty: 12 0RF levofloxacin 750 mg tablet 750 mg PO DAILY Qty: 6 0RF No Action zppsqgfs-frr-jujc-FA-lutein 1 EACH tablet 1 tab PO DAILY omeprazole 20 MG capsule,delayed release(DR/EC) 20 mg PO BID levetiracetam 750 MG tablet 1,500 mg PO TID fluticasone propionate [Flonase Allergy Relief] 50 mcg/actuation [place],Suspension 1 spray INTRANASAL DAILY Rx Instructions: administer into each nostril oxycodone-acetaminophen 5-325 mg tablet 1 tab PO Q6H PRN PRN (Reason: Pain) 3 Days Qty: 10 0RF Primary Care Provider: rAi Sotomayor Referrals: Ari Sotomayor DO [Primary Care Provider] - Activity Restrictions/Additional Instructions: I suspect you have irritation of your ribs or chest wall associated with coughing or pneumonia. In addition to the medications prescribed I also recommend you take an qwda-pux-qlbuhod anti-inflammatory such as ibuprofen (you may take up to 600 mg every 6 hours), 4% Salonpas Lidoderm patch and Mucinex. Please follow-up with your primary care doctor. Return if you have a difficult time breathing or you have a progression/change of your symptoms. Disposition Disposition: Home, Self Care
[2022-09-23 17:12] VITALS: BP 152/89; PULSE 87; RESP 17; O2SAT 96
== END 2022-09-23 17:37 | disposition home or self-care (01) ==
PROVIDERS: Emergency Provider Emergency Medicine; PCP Family Medicine; Visit Provider Emergency Medicine
DX: J18.9 Pneumonia, unspecified organism (principal); G40.909 Epilepsy, unspecified, not intractable, without status epilepticus; Z79.899 Other long term (current) drug therapy; Z86.16 Personal history of COVID-19; Z86.73 Personal history of transient ischemic attack (TIA), and cerebral infarction without residual deficits; Z87.891 Personal history of nicotine dependence
CPT/HCPCS: 71046; 80048; 80076; 83690; 84484; 85025; 93005; 96374; 96375; 99283; A4216; J2405

== ENCOUNTER 2022-10-14 20:12 | Emergency (ER) | payer MEDICARE, MEDICAID, SELFPAY ==
[2022-10-14 20:13] VITALS: BP 161/100; PULSE 95; RESP 16; TEMP 37; O2SAT 98
[2022-10-14 20:17] VITALS: BMI 27.6
--- NOTE | 2022-10-14 20:58 | CT_ITS ---
INDICATION: pain, history of fusion EXAMINATION: CT LUMBAR SPINE - CT Spine Lumbar W/O Contrast Injection TECHNIQUE: Helically acquired images were obtained of the lumbar spine. 2D reformats were reviewed. A radiation dose optimization technique was used for this scan. IV Contrast dosage and agent: None. COMPARISON: CT abdomen and pelvis 08/24/2022 FINDINGS: VERTEBRAE: No acute fracture. Stable surgical changes from posterior fusion with hardware L4-S1. No discrete lytic or blastic abnormality observed. Normal alignment. DISCS and SPINAL CANAL: Stable mild disc height narrowing above the fused segment. No critical stenosis. VISUALIZED ABDOMEN: Visualized abdominal aorta is not dilated. CT/Spine Lumbar without Contrast IMPRESSION: Stable examination without acute bony abnormality or change in the appearance of the distal lumbar fusion with posterior hardware. Electronically Signed: Chad Can MD at 21:42 EST ,
--- NOTE | 2022-10-14 21:02 | EDS_ITS ---
HPI History of Present Illness Chief Complaint: Back Narrative Narrative: 52-year-old female past medical history of chronic back pain, has had previous fusion, to the point where she states that things have shifted and she is scheduled for back surgery approximately a few weeks from now at [facility]. She states that they are going to remove the rods and scarred over with repositioning of her spinal fusion and the hardware. A few hours ago, she states that she was coughing, and felt a pop in her low back. Since then she has had intractable pain. She does not see pain management any longer. She took gabapentin, and ibuprofen along with a muscle relaxer without relief of her pain. She states she called her surgeon who told her to come to the emergency department, get imaging to make sure everything was okay and an attempt to control her pain. She denies any loss of bowel or bladder, just constant pain in her low back, mainly on the right side and towards her sacrum. [facility] Medical History Asthma Brain aneurysm Chronic pain COVID-19 Former smoker GERD (gastroesophageal reflux disease) Kidney disease Kidney stones Migraines Rheumatoid arthritis Seizures Sleep apnea Home Medications multivit with xojwzxun-oyui-DZ-lutein 8 mg iron-400 mcg-300 mcg tablet 1 tab PO DAILY supplement 03/21/19 [History Last Taken 07/26/21] omeprazole 20 mg capsule,delayed release 20 mg PO BID GERD 05/31/19 [History Last Taken 07/26/21] levetiracetam 750 mg tablet 1,500 mg PO TID seizures 12/04/19 [History Last Taken 07/26/21] fluticasone propionate 50 mcg/actuation nasal spray,suspension (Flonase Allergy Relief) 1 spray intranasal DAILY 08/24/22 [History Last Taken Unknown] oxycodone-acetaminophen 5 mg-325 mg tablet 1 tab PO Q6H PRN PRN Pain 3 days #10 TABLETS 08/24/22 [Rx Last Taken Unknown] levofloxacin 750 mg tablet 750 mg PO DAILY #6 tabs 09/23/22 [Rx Last Taken Unknown] oxycodone-acetaminophen 5 mg-325 mg tablet (Percocet) 1 tab PO Q6H PRN pain 3 days #12 tabs 09/23/22 [Rx Last Taken Unknown] Allergy/AdvReac Type Severity Reaction Status Date / Time Penicillins Allergy Anaphylaxis Verified 10/14/22 20:14 propoxyphene napsylate Allergy Rash Verified 10/14/22 20:14 [From Darvocet-N 100] adhesive tape [plastic tape] AdvReac Other Verified 10/14/22 20:14 hydrocodone bitartrate AdvReac Itching Verified 10/14/22 20:14 [From Vicodin] venom-honey bee AdvReac Chest Verified 10/14/22 20:14 [bee venom (honey bee)] tightness IV contrast AdvReac Vomiting Uncoded 10/14/22 20:14 Surgical History History of appendectomy History of cholecystectomy Social History household members: none Smoking Status: Former smoker substance use type: does not use ROS ROS ED ROS Narrative Constitutional: No fever, no chills. HEENT: No sore throat. No neck pain. No loss of vision. No rhinorrhea. Cardiovascular: No chest pain. No palpitations. No pedal edema. Respiratory: No cough, no shortness of breath. Abdominal: No abdominal pain. No nausea. No vomiting. Genitourinary: No dysuria. No hematuria. Musculoskeletal: No myalgias. No arthralgias. Positive low back pain, mainly right-sided lumbar to sacral area. Neurologic: No headaches. No dizziness. No lightheadedness. No loss of bowel or bladder. Skin: No rash. No change in color. Psychiatric: No depression. No anxiety. EXAM Physical Exam Narrative Exam Narrative: Afebrile. Vital signs noted. Tearful on examination. HEENT: Normocephalic. Atraumatic. PERRL, EOMI. Neck soft and supple. No point tenderness or step off. Cardiovascular: Regular rate and rhythm. No murmurs, rubs, or gallops appreciated. Respiratory: No tachypnea. Lungs clear to auscultation bilaterally. Gastrointestinal: Abdomen soft, nontender, with normoactive bowel sounds. No rebound or guarding. Neurological: Awake. Alert. Nonfocal, nonlateralizing. Skin: No rash. Normal color. No pallor. Musculoskeletal: No pedal edema. Full range of motion extremities. Well-healed scar in the lumbosacral area. No erythema. Mild tenderness to palpation right paraspinal musculature and sacrum. No ecchymosis or erythema. No step-off. Const Vital Signs: 10/14/22 20:13 Temperature 98.6 F Temperature Source Temporal Pulse Rate 95 Respiratory Rate 16 Blood Pressure 161/100 H Blood Pressure Mean 120 Pulse Ox 98 Oxygen Delivery Method Room Air MDM MDM MDM Narrative Medical decision making narrative: Patient states that she has had x-rays and CT with myelogram of her lumbar spine area. This evening, in order to make sure that nothing has shifted CT will be obtained of the lumbar spine without contrast. For analgesia she was administered morphine 6 mg intramuscularly. I do not have concern for cauda equina symptoms as there are no red flag signs such as saddle anesthesia, or radicular symptoms. I feel she may have more of a acute on chronic pain versus a lumbosacral strain/sprain. I reviewed the CT results/radiology report which show stable examination from CT of the abdomen and pelvis earlier this year without acute bony abnormality or change in appearance of the distal lumbar fusion or posterior hardware. Upon repeat examination, she states that she feels slightly improved. I feel she be discharged safely home with follow-up to her spine surgeon on Thursday as scheduled. Return instructions were reviewed. Disposition is discharged home in stable condition. Radiography Diagnostic Testing: Clinical Impression(s) from Imaging Studies Lumbar Spine CT 10/14/22 20:58 IMPRESSION: Stable examination without acute bony abnormality or change in the appearance of the distal lumbar fusion with posterior hardware. Electronically Signed: Chad Can MD at 21:42 EST , Discharge Plan Triage Chief Complaint: Back ED Provider: Jordin Chihsolm Dx/Rx/DC Orders Clinical Impression: Acute exacerbation of chronic low back pain, Lumbosacral strain Instructions: ED Back Pain (Acute or Chronic), ED Back Sprain/Strain Prescriptions: No Action muexcyoe-ttk-ptbp-FA-lutein 1 EACH tablet 1 tab PO DAILY omeprazole 20 MG capsule,delayed release(DR/EC) 20 mg PO BID levetiracetam 750 MG tablet 1,500 mg PO TID fluticasone propionate [Flonase Allergy Relief] 50 mcg/actuation [place],Suspension 1 spray INTRANASAL DAILY Rx Instructions: administer into each nostril oxycodone-acetaminophen 5-325 mg tablet 1 tab PO Q6H PRN PRN (Reason: Pain) 3 Days Qty: 10 0RF oxycodone-acetaminophen [Percocet] 5-325 mg tablet 1 tab PO Q6H PRN (Reason: pain) 3 Days Qty: 12 0RF levofloxacin 750 mg tablet 750 mg PO DAILY Qty: 6 0RF Primary Care Provider: Ari Sotomayor Referrals: Ari Sotomayor DO [Primary Care Provider] - Activity Restrictions/Additional Instructions: Follow-up with your spine surgeon on Thursday as scheduled. Continue taking your gabapentin, ibuprofen, and Flexeril. Disposition Disposition: Home, Self Care
[2022-10-14] MEDS: Morphine 4 MG/ML Syringe 6 MG IM (21:23)
== END 2022-10-14 22:08 | disposition home or self-care (01) ==
PROVIDERS: Emergency Provider Emergency Medicine; PCP Family Medicine; Visit Provider Emergency Medicine
DX: S39.012A Strain of muscle, fascia and tendon of lower back, initial encounter (principal); G47.30 Sleep apnea, unspecified; G89.29 Other chronic pain; Z86.16 Personal history of COVID-19; Z87.891 Personal history of nicotine dependence; X58.XXXA Exposure to other specified factors, initial encounter
CPT/HCPCS: 72131; 96372; 99282

== ENCOUNTER 2022-11-16 21:05 | Emergency (ER) | payer MEDICARE, MEDICAID, SELFPAY ==
[2022-11-16 21:10] VITALS: BP 133/79; PULSE 101; RESP 15; TEMP 36.7; O2SAT 95
[2022-11-16 22:39] VITALS: BMI 28.3
[2022-11-16 23:38] LABS: Absolute Lymphocyte Count 4.45 X10^3/uL (0.83-4.51); Absolute Neutrophil Count 7.7 X10^3/uL (2.0-7.7); Basophil# 0.09 X10^3/uL; Basophil% 0.6 % (0-1); Eosinophil# 0.15 X10^3/uL; Eosinophils% 1.1 % (0-5); Hematocrit 43.4 % (37-47); Lymphocyte # 4.45 X10^3/ul (0.83-4.51); Lymphocyte % 31.6 % (19-41); Mean Corp Hgb Conc 32.3 g/dL (32-36); Mean Corpuscular Hgb 30.8 pg (27.0-32.0); Mean Corpuscular Volume 95.6 fL (81-99); Mean Platelet Vol. 9.5 fl (6.2-12.0); Monocyte# 1.44 X10^3/uL; Monocyte% 10.2 % (0-10); NRBC Flagged by Analyzer 0 % (0-5); Neutrophil # 7.65 X10^3/uL (2.7-7.7); Neutrophil % 54.4 % (47-70); POSITIVE COUNT YES; POSITIVE MORPHOLOGY YES; Platelet Count 416 K/mm3 (150-450); RBC Distribution Width CV 13.1 % (11.6-14.6); RBC Distribution Width SD 46.1 fl (35.1-43.9); Red Blood Count 4.54 M/mm3 (4.2-5.4); White Blood Count 14.1 K/mm3 (4.4-11.0)
[2022-11-16 23:40] LABS: CRP 7.14 mg/L (0.0-3.0)
[2022-11-16] MEDS: Ondansetron 4 MG/2 ML Vial IV (23:40)
[2022-11-16] MEDS: HYDROmorphone 1 MG/ML Syringe IV (23:41)
[2022-11-16] MEDS: dexAMETHasone 10 MG/ML Vial IV (23:41)
[2022-11-17 00:02] LABS: Differential Indicated SCAN CRITERIA MET
[2022-11-17 00:06] LABS: Lactic Acid 0.9 mmol/L (0.4-1.9)
--- NOTE | 2022-11-17 00:49 | EDS_ITS ---
HPI History of Present Illness Chief Complaint: Wound Narrative Narrative: Patient is a 52-year-old female who underwent spinal surgery at an outside hospital roughly 2 weeks ago. She states that her bandages were recently removed and she was informed by her surgeon that she needs to clean the wound with Hibiclens. Patient states she has very sensitive skin and after using the cleaning solution began to have increased redness around the site with a burning itching sensation. She states she tried to clean the area but there is been no symptom improvement and secondary to this comes in for evaluation [facility] Medical History Asthma Brain aneurysm Chronic pain COVID-19 Former smoker GERD (gastroesophageal reflux disease) Kidney disease Kidney stones Migraines Rheumatoid arthritis Seizures Sleep apnea Home Medications multivit with zpafrabb-seyn-TX-lutein 8 mg iron-400 mcg-300 mcg tablet 1 tab PO DAILY supplement 03/21/19 [History Last Taken 07/26/21] omeprazole 20 mg capsule,delayed release 20 mg PO BID GERD 05/31/19 [History Last Taken 07/26/21] levetiracetam 750 mg tablet 1,500 mg PO TID seizures 12/04/19 [History Last Taken 07/26/21] fluticasone propionate 50 mcg/actuation nasal spray,suspension (Flonase Allergy Relief) 1 spray intranasal DAILY 08/24/22 [History Last Taken Unknown] oxycodone-acetaminophen 5 mg-325 mg tablet 1 tab PO Q6H PRN PRN Pain 3 days #10 TABLETS 08/24/22 [Rx Last Taken Unknown] levofloxacin 750 mg tablet 750 mg PO DAILY #6 tabs 09/23/22 [Rx Last Taken Unknown] oxycodone-acetaminophen 5 mg-325 mg tablet (Percocet) 1 tab PO Q6H PRN pain 3 days #12 tabs 09/23/22 [Rx Last Taken Unknown] lidocaine 5 % topical ointment 1 applic topical TID PRN skin irritation #50 grams 11/17/22 [Rx Last Taken Unknown] prednisone 20 mg tablet 20 mg PO DAILY 5 days #5 tabs 11/17/22 [Rx Last Taken Unknown] Allergy/AdvReac Type Severity Reaction Status Date / Time Penicillins Allergy Anaphylaxis Verified 11/16/22 21:14 propoxyphene napsylate Allergy Rash Verified 11/16/22 21:14 [From Darvocet-N 100] adhesive tape [plastic tape] AdvReac Other Verified 11/16/22 21:14 hydrocodone bitartrate AdvReac Itching Verified 11/16/22 21:14 [From Vicodin] venom-honey bee AdvReac Chest Verified 11/16/22 21:14 [bee venom (honey bee)] tightness IV contrast AdvReac Vomiting Uncoded 10/14/22 20:14 Surgical History History of appendectomy History of cholecystectomy Social History household members: none Smoking Status: Former smoker substance use type: does not use ROS ROS ED Constitutional Constitutional ED: Denies chills or fever(s) ENT ENT ED: Denies sore throat Cardiovascular Cardiovascular: Denies chest pain Respiratory/Chest Respiratory/Chest: Denies cough or dyspnea Gastrointestinal Gastrointestinal: Denies abdominal pain, diarrhea, nausea or vomiting Genitourinary Genitourinary ED: Denies dysuria Musculoskeletal Musculoskeletal: Reports back pain Integumentary Reports rash Neurologic Neurologic: Denies headache(s), paresthesias or weakness Hematologic/Lymphatic Hematologic/Lymphatic: Denies easy bleeding or easy bruising EXAM Physical Exam Const Vital Signs: 11/16/22 21:10 Temperature 98.0 F Temperature Source Oral Pulse Rate 101 H Respiratory Rate 15 Blood Pressure 133/79 H Blood Pressure Mean 97 Pulse Ox 95 Oxygen Delivery Method Room Air Positive well nourished and well developed General Appearance ED: well developed HEENT HEENT Narrative: No oral lesions no airway edema or compromise Eyes PERRL and EOMs intact bilaterally Neck supple Resp normal respiratory effort and clear to auscultation bilaterally Cardio regular rate and regular rhythm Back/Spine Back/Spine Narrative: Patient has a surgical incision across the lower thoracic into the upper to mid lumbar region. Sutures are in place and there is mild surrounding erythema that branches out on the half centimeter from the wound edges. The area is blanchable in nature. There is no lymphangitic streaking and no purulent discharge. Patient does have some dried serosanguineous fluid at the wound ed ges. Extremity normal to inspection Neuro oriented x3 and CN's II-XII intact bilaterally Sensorium / Orientation: alert Psych Psych Narrative: Patient has a nervous/anxious affect Skin Skin Narrative: Soft tissue changes in the low back as documented above MDM MDM MDM Narrative Medical decision making narrative: Patient presented to the ER with stable vitals and she is afebrile and by exam her wound does not show signs of secondary infection. Therefore I have low concern for a spinal/epidural abscess or discitis or cellulitis as a cause of her symptoms. I do feel that her symptoms are related to a allergic reaction/intolerance to the Hibiclens as her pain and burning on began after cleaning this area with this. Basic labs were obtained which show slight white count of 14.1 but her lactic acid is normal and her CRP is under [address] infection. The patient had the area cleaned with normal saline and then lidocaine gel was placed over top the wound. The patient states after this there is no more burning sensation and she feels pain-free. Therefore at this time as exam indicates this is most likely acute allergic reaction/medication intolerance and labs do not show elevation to her lactic or CRP greater than 10 I have low concern for missed infectious process and patient is otherwise safe for discharge History & Record Review Discussion w/independent historian: Patient and Family Lab Data Attestation: I reviewed the patient's lab results. Labs: Laboratory Results - last 24 hr 11/16/22 11/16/22 11/16/22 22:57 22:57 22:57 WBC 14.1 H RBC 4.54 Hgb 14.0 Hct 43.4 MCV 95.6 MCH 30.8 MCHC 32.3 RDW Std Deviation 46.1 H RDW Coeff of Bere 13.1 Plt Count 416 MPV 9.5 Immature Gran % (Auto) 2.100 H Neut % (Auto) 54.4 Lymph % (Auto) 31.6 [place] % (Auto) 10.2 H Eos % (Auto) 1.1 Baso % (Auto) 0.6 Absolute Neuts (auto) 7.7 Absolute Lymphs (auto) 4.45 Nucleated RBC % 0 Lactic Acid 0.9 C-React Prot Ext Range 7.14 H Discharge Plan Triage Chief Complaint: Wound ED Provider: Alfredito Guerrero Dx/Rx/DC Orders Clinical Impression: Adverse effect of skin agent, Post-operative pain Instructions: Pain Management After Surgery, ED Drug Reaction, Other Prescriptions: New lidocaine 5 % ointment 1 applic topical TID PRN (Reason: skin irritation) Qty: 50 1RF prednisone 20 mg tablet 20 mg PO DAILY 5 Days Qty: 5 0RF No Action vutqnbve-lhl-pxze-FA-lutein 1 EACH tablet 1 tab PO DAILY omeprazole 20 MG capsule,delayed release(DR/EC) 20 mg PO BID levetiracetam 750 MG tablet 1,500 mg PO TID fluticasone propionate [Flonase Allergy Relief] 50 mcg/actuation [place],Suspension 1 spray INTRANASAL DAILY Rx Instructions: administer into each nostril oxycodone-acetaminophen 5-325 mg tablet 1 tab PO Q6H PRN PRN (Reason: Pain) 3 Days Qty: 10 0RF oxycodone-acetaminophen [Percocet] 5-325 mg tablet 1 tab PO Q6H PRN (Reason: pain) 3 Days Qty: 12 0RF levofloxacin 750 mg tablet 750 mg PO DAILY Qty: 6 0RF Primary Care Provider: Ari Sotomayor Referrals: Ari Sotomayor DO [Primary Care Provider] - Activity Restrictions/Additional Instructions: Your physical exam and work-up indicate that the increased pain along your incision was related to allergic reaction/irritation from cleaning solution. Your labs and physical exam do not indicate any type of postoperative skin infection. Please do not use the cleaning solution anymore but wash with soap and water. Use the topical lidocaine for improved pain control and take the steroid for anti-inflammatory control. Follow-up with your surgeon for repeat evaluation as previously directed and return to the ER should you have any further concerns Disposition Disposition: Home, Self Care Discharge Date/Time: 11/17/22 01:23
[2022-11-17] MEDS: Lidocaine 4% 50 ML Bottle TOPICAL (01:21)
== END 2022-11-17 01:23 | disposition home or self-care (01) ==
PROVIDERS: Emergency Provider Emergency Medicine; PCP Family Medicine; Visit Provider Emergency Medicine
DX: L29.8 Other pruritus (principal); L24.4 Irritant contact dermatitis due to drugs in contact with skin; T49.8X5A Adverse effect of other topical agents, initial encounter; G89.18 Other acute postprocedural pain; Z87.891 Personal history of nicotine dependence; Z86.16 Personal history of COVID-19
CPT/HCPCS: 83605; 85025; 86140; 96374; 96375; 99282; A4216; J2405

== ENCOUNTER 2023-02-15 17:08 | Emergency (ER) | payer MEDICARE, MEDICAID, SELFPAY ==
[2023-02-15 17:09] VITALS: BP 118/78; PULSE 82; RESP 16; TEMP 35.8; O2SAT 98; BMI 27.1
--- NOTE | 2023-02-15 17:23 | RAD_ITS ---
EXAM: XR RIGHT ELBOW COMPLETE, 3 OR MORE VIEWS CLINICAL INDICATION: Injury/Pain TECHNIQUE: Frontal, lateral and oblique views of the right elbow. COMPARISON: No relevant prior studies available. FINDINGS: BONES/JOINTS: Unremarkable. There is no displacement of the anterior or posterior fat pads. No acute fracture. No subluxation. Normal alignment. Preservation of the joint space. No destructive or sclerotic lesions. SOFT TISSUES: Unremarkable. No soft tissue swelling or gas. No radiopaque foreign body. RAD/Elbow min 3 Views IMPRESSION: Negative right elbow. Electronically Signed: Dawit Singh MD at 18:07 EDT ,
--- NOTE | 2023-02-15 17:24 | EX.ED.UPPERE ---
HPI <LILIAN Grace - Last Filed: 02/15/23 18:17> History of Present Illness Chief Complaint: Upper Extremity Injury Narrative Narrative: Patient tripped outside 4 days ago landed on both arms and knees. She states her elbows and forearms took the brunt of the force. She bumped her head on the ground but states it was no big head injury and no LOC. Since the fall she has had pain in both elbows that shoots down her arms into her fingers. She thinks it is mainly the thumb and third and fourth fingers. There is no weakness. PFSH <LILIAN Grace - Last Filed: 02/15/23 18:17> [facility] Medical History Asthma Brain aneurysm Chronic pain COVID-19 Former smoker GERD (gastroesophageal reflux disease) Kidney disease Kidney stones Migraines Rheumatoid arthritis Seizures Sleep apnea Home Medications multivit with klnmgsid-qkyr-IQ-lutein 8 mg iron-400 mcg-300 mcg tablet 1 tab PO DAILY supplement 03/21/19 [History Last Taken 07/26/21] omeprazole 20 mg capsule,delayed release 20 mg PO BID GERD 05/31/19 [History Last Taken 07/26/21] levetiracetam 750 mg tablet 1,500 mg PO TID seizures 12/04/19 [History Last Taken 07/26/21] fluticasone propionate 50 mcg/actuation nasal spray,suspension (Flonase Allergy Relief) 1 spray intranasal DAILY 08/24/22 [History Last Taken Unknown] oxycodone-acetaminophen 5 mg-325 mg tablet 1 tab PO Q6H PRN PRN Pain 3 days #10 TABLETS 08/24/22 [Rx Last Taken Unknown] levofloxacin 750 mg tablet 750 mg PO DAILY #6 tabs 09/23/22 [Rx Last Taken Unknown] oxycodone-acetaminophen 5 mg-325 mg tablet (Percocet) 1 tab PO Q6H PRN pain 3 days #12 tabs 09/23/22 [Rx Last Taken Unknown] lidocaine 5 % topical ointment 1 applic topical TID PRN skin irritation #50 grams 11/17/22 [Rx Last Taken Unknown] prednisone 20 mg tablet 20 mg PO DAILY 5 days #5 tabs 11/17/22 [Rx Last Taken Unknown] prednisone 20 mg tablet 40 mg PO DAILY 4 days #8 tabs 02/15/23 [Rx Last Taken Unknown] Allergy/AdvReac Type Severity Reaction Status Date / Time Penicillins Allergy Anaphylaxis Verified 02/15/23 17:20 propoxyphene napsylate Allergy Rash Verified 02/15/23 17:20 [From Darvocet-N 100] adhesive tape [plastic tape] AdvReac Other Verified 02/15/23 17:20 hydrocodone bitartrate AdvReac Itching Verified 02/15/23 17:20 [From Vicodin] Iodinated Contrast Media AdvReac Vomiting Verified 02/15/23 17:20 [contrast dye - iodinated] venom-honey bee AdvReac Chest Verified 02/15/23 17:20 [bee venom (honey bee)] tightness Surgical History History of appendectomy History of cholecystectomy Social History household members: none Smoking Status: Former smoker substance use type: does not use ROS <LILIAN Grace - Last Filed: 02/15/23 18:17> ROS ED ROS Narrative Neuro: Negative for motor/sensory dysfunction. Skin: Negative for wound. Musc: Negative for joint pain, swelling. Heme: Negative for easy bruising, bleeding, lymphadenopathy. EXAM <LILIAN Grace - Last Filed: 02/15/23 18:17> Physical Exam Narrative Exam Narrative: CONST: Patient sitting in no acute distress. EYES: Normal inspection. NECK: Normal inspection. RESP: No respiratory distress, CTAB. CVS: Regular rate and rhythm, no murmur, no gallop. SKIN: Color normal, no rash, warm, dry, intact. EXTREMITIES: Normal appearance of both upper extremities extremities, full range of motion. Tender along both ulnar grooves and on right olecranon process. No deformity or crepitus. Normal motor and sensory function median radial and ulnar distributions, 2+ radial pulses and brisk cap refill. NEURO: Oriented x4. PSYCH: Normal affect. Const Vital Signs: 02/15/23 17:09 Temperature 96.4 F L Temperature Source Temporal Pulse Rate 82 Respiratory Rate 16 Blood Pressure 118/78 Blood Pressure Mean 91 Pulse Ox 98 MDM <LILIAN Grace - Last Filed: 02/15/23 18:17> [facility] Narrative Medical decision making narrative: History gathered from: Patient and spouse Patient had a mechanical fall 4 days ago and landed on her forearms and elbows. Since then she has had some pain along both ulnar grooves and running down the arm. She is tender along this area on exam. Extremities have no significant swelling or external signs of trauma. She has full range of motion and has no vascularly intact. Bilateral elbow x-rays are negative. She was treated with Toradol and prednisone with a steroid burst for home to help decrease inflammation and reduce ulnar neuropathy symptoms. If not improving in 1 week she was told to see her PCP. She was discharged in stable condition. Differential: Elbow fracture, ulnar neuropathy Radiography Diagnostic Testing: ED attending interpretation right elbow shows no acute fracture or dislocation. ED attending interpretation of left elbow shows no acute fracture or dislocation. <Dr. Maya Monroy MD - Last Filed: 02/15/23 18:25> [facility] Treatment and Re-Evaluation Narrative: Patient seen and evaluated with [facility]. I personally interviewed and examined the patient. I was involved in all aspects of patient's orders, interpretation of results, and treatment. Patient presents secondary to bilateral elbow pain. She fell recently landing on her knees and arms. She believes her elbows with the brunt of the pain. She continues to complain of pain to the elbows and states that she often wake in the morning with numbness and tingling in her fourth and fifth fingers. Patient sitting upright in bed no acute distress. Head and neck examination unremarkable. No external sign of trauma. Heart is regular rate rhythm. Lung sounds are clear. Abdomen is soft and nontender. Upper extremity examination bilaterally reveals no obvious deformity, edema, abrasion. She does have reproducible tenderness in the ulnar groove of the elbows. She has strong distal pulses with normal hand grasp and sensation. Bilateral elbow x-rays are obtained. No evidence of fracture per my interpretation. Radiology interpretation is reviewed and agrees. Patient will be treated with a burst of steroids to help with inflammation affecting the ulnar nerve. She is already on Percocet and has an active prescription. Return instructions given Discharge Plan Triage Chief Complaint: Upper Extremity Injury ED Midlevel Provider: Manuela Yun ED Provider: Maya Monroy Dx/Rx/DC Orders Clinical Impression: Ulnar neuropathy of left upper extremity, Ulnar neuropathy of right upper extremity Instructions: ED Ulnar Nerve Palsy Prescriptions: New prednisone 20 mg tablet 40 mg PO DAILY 4 Days Qty: 8 0RF No Action rcevarmj-dou-cwdz-FA-lutein 1 EACH tablet 1 tab PO DAILY omeprazole 20 MG capsule,delayed release(DR/EC) 20 mg PO BID levetiracetam 750 MG tablet 1,500 mg PO TID fluticasone propionate [Flonase Allergy Relief] 50 mcg/actuation [place],Suspension 1 spray INTRANASAL DAILY Rx Instructions: administer into each nostril oxycodone-acetaminophen 5-325 mg tablet 1 tab PO Q6H PRN PRN (Reason: Pain) 3 Days Qty: 10 0RF oxycodone-acetaminophen [Percocet] 5-325 mg tablet 1 tab PO Q6H PRN (Reason: pain) 3 Days Qty: 12 0RF levofloxacin 750 mg tablet 750 mg PO DAILY Qty: 6 0RF lidocaine 5 % ointment 1 applic topical TID PRN (Reason: skin irritation) Qty: 50 1RF prednisone 20 mg tablet 20 mg PO DAILY 5 Days Qty: 5 0RF Primary Care Provider: Ari Sotomayor Referrals: Ari Sotomayor DO [Primary Care Provider] - Activity Restrictions/Additional Instructions: The x-ray showed no broken bones. I suspect that your pain is from irritation of the ulnar nerve that runs on your elbow. As the swelling and pressure decreases the pain should go down. I prescribed steroids and recommend you take eacj-afw-twrheuc pain relievers as needed. Disposition Disposition: Home, Self Care Discharge Date/Time: 02/15/23 18:22
[2023-02-15] MEDS: Ketorolac 30 MG/ML Syringe IM (17:35)
--- NOTE | 2023-02-15 17:35 | RAD_ITS ---
EXAM: XR LEFT ELBOW COMPLETE, 3 OR MORE VIEWS CLINICAL INDICATION: Injury/Pain TECHNIQUE: Frontal, lateral and oblique views of the left elbow. COMPARISON: No relevant prior studies available. FINDINGS: BONES/JOINTS: Unremarkable. There is no displacement of the anterior or posterior fat pads. No acute fracture. No subluxation. Normal alignment. Preservation of the joint space. No destructive or sclerotic lesions. SOFT TISSUES: Unremarkable. No soft tissue swelling or gas. No radiopaque foreign body. RAD/Elbow min 3 Views IMPRESSION: Negative left elbow. Electronically Signed: Dawit Singh MD at 18:07 EDT ,
[2023-02-15] MEDS: predniSONE 20 MG Tablet 40 MG PO (18:21)
== END 2023-02-15 18:22 | disposition home or self-care (01) ==
PROVIDERS: Emergency Provider Emergency Medicine; PCP Family Medicine; Visit Provider Emergency Medicine
DX: G56.23 Lesion of ulnar nerve, bilateral upper limbs (principal); G47.30 Sleep apnea, unspecified; Z86.16 Personal history of COVID-19; Z87.891 Personal history of nicotine dependence
CPT/HCPCS: 73080; 96372; 99283

== ENCOUNTER 2023-05-17 17:48 | Emergency (ER) | payer MEDICARE, MEDICAID, SELFPAY ==
[2023-05-17 17:50] VITALS: BP 152/85; PULSE 103; RESP 18; TEMP 37; O2SAT 97; BMI 27.3
[2023-05-17 18:07] VITALS: PULSE 83; RESP 16; O2SAT 98
--- NOTE | 2023-05-17 18:11 | EX.ED.VIS.EY ---
HPI History of Present Illness Chief Complaint: Eye Problem Informant: patient Onset/Context/Timing Location: Left Eye Onset: Today and Yesterday Context: Gradual Onset Timing: Continuous Current Severity: Moderate Maximum Severity: Moderate Associated Symptoms Associated Symptoms - Eyes: Eyelid swelling History of injury: No Visual correction: None Narrative Narrative: 53-year-old female yesterday noticed swelling of her left upper eyelid and worse today with discomfort. Watering but no discharge. No trauma. She does not wear glasses or have contacts. She has never had eye surgery. Prior similar symptoms: No Recent Illness/Hospitalization: No PFSH PFSH Medical History Asthma Brain aneurysm Chronic pain COVID-19 Former smoker GERD (gastroesophageal reflux disease) Kidney disease Kidney stones Migraines Rheumatoid arthritis Seizures Sleep apnea Home Medications [id number]-[id number]-[id number] 8 mg-folic 400 mcg-K 50 mcg-lutein 300 mcg tablet 1 tab PO DAILY supplement 03/21/19 [History Last Taken 07/26/21] omeprazole 20 mg capsule,delayed release 20 mg PO BID GERD 05/31/19 [History Last Taken 07/26/21] levetiracetam 750 mg tablet 1,500 mg PO TID seizures 12/04/19 [History Last Taken 07/26/21] fluticasone propionate 50 mcg/actuation nasal spray,suspension (Flonase Allergy Relief) 1 spray intranasal DAILY 08/24/22 [History Last Taken Unknown] oxycodone-acetaminophen 5 mg-325 mg tablet 1 tab PO Q6H PRN PRN Pain 3 days #10 TABLETS 08/24/22 [Rx Last Taken Unknown] levofloxacin 750 mg tablet 750 mg PO DAILY #6 tabs 09/23/22 [Rx Last Taken Unknown] oxycodone-acetaminophen 5 mg-325 mg tablet (Percocet) 1 tab PO Q6H PRN pain 3 days #12 tabs 09/23/22 [Rx Last Taken Unknown] lidocaine 5 % topical ointment 1 applic topical TID PRN skin irritation #50 grams 11/17/22 [Rx Last Taken Unknown] prednisone 20 mg tablet 20 mg PO DAILY 5 days #5 tabs 11/17/22 [Rx Last Taken Unknown] prednisone 20 mg tablet 40 mg (2 x 20 mg) PO DAILY 4 days #8 tabs 06/25/23 [Rx Last Taken Unknown] Allergy/AdvReac Type Severity Reaction Status Date / Time Penicillins Allergy Anaphylaxis Verified 05/17/23 17:50 propoxyphene napsylate Allergy Rash Verified 05/17/23 17:50 [From Darvocet-N 100] adhesive tape [plastic tape] AdvReac Other Verified 05/17/23 17:50 hydrocodone bitartrate AdvReac Itching Verified 05/17/23 17:50 [From Vicodin] Iodinated Contrast Media AdvReac Vomiting Verified 05/17/23 17:50 [contrast dye - iodinated] venom-honey bee AdvReac Chest Verified 05/17/23 17:50 [bee venom (honey bee)] tightness Surgical History History of appendectomy History of cholecystectomy Social History household members: none Smoking Status: Former smoker substance use type: does not use ROS ROS ED ROS Narrative Denies recent illness. Review of Systems ROS Unobtainable: Denies due to encephalopathy Constitutional Constitutional ED: Denies chills or fever(s) Eyes Eyes: Denies blurry vision ENT ENT ED: Denies ear pain Cardiovascular Cardiovascular: Denies chest pain or palpitations Respiratory/Chest Respiratory/Chest: Denies dyspnea Gastrointestinal Gastrointestinal: Denies abdominal pain Genitourinary Genitourinary ED: Denies dysuria or hematuria Musculoskeletal Musculoskeletal: Denies arthralgias Integumentary Denies abscess Neurologic Neurologic: Denies headache(s) Psychiatric Psychiatric: Denies anxiety Endocrine Endocrinology: Denies polydipsia Hematologic/Lymphatic Hematologic/Lymphatic: Denies easy bleeding, easy bruising or lymphadenopathy Allergic/Immunologic Allergic/Immunologic ED: Denies mouth swelling, tongue swelling or urticaria EXAM Physical Exam Narrative Exam Narrative: 53-year-old female vital signs stable afebrile. HEENT exam left eyelid is swollen consistent with a stye just left of the midportion of her upper lid. It is just back from the eyelid border. There is round reactive light extra motions are intact. There is no discharge. Exam is consistent with a left upper eyelid stye. Nothing to drain. Lungs clear. Heart regular rate and rhythm. Const Vital Signs: 05/17/23 17:50 Temperature 98.6 F Temperature Source Temporal Pulse Rate 103 H Respiratory Rate 18 Blood Pressure 152/85 H Blood Pressure Mean 107 Pulse Ox 97 Oxygen Delivery Method Room Air Positive well nourished and well developed; Negative for cachectic, contractures or unkempt General Appearance ED: well developed and NAD; Negative for unkempt, cachectic or contractures Nutritional Appearance: Negative for cachectic HEENT atraumatic; Negative for trauma or tenderness Neck no lymphadenopathy, supple and no JVD General: Negative for tenderness or other Resp normal respiratory effort, no retractions, no use of accessory muscles, clear to auscultation bilaterally and No percussion normal Effort and Inspection: Negative for other Cardio regular rate, regular rhythm, S1 normal heart sound, S2 normal heart sound and no murmurs Jugular Venous Distention: Negative for other GI non-tender, non-distended and no masses Inspection: Negative for other Auscultation: normoactive bowel sounds Palpation: soft Back/Spine no CVA tenderness Extremity normal to inspection General Extremety ED: Negative for edema or other findings General Extremity: Negative for edema or other findings Neuro oriented x3, CN's II-XII intact bilaterally and moves all extremities Sensorium / Orientation: alert, oriented to person, oriented to place and oriented to time Motor Exam: strength 5/5 throughout Psych Appearance: Negative for unkempt Attitude: No agitated Mood & Affect: Negative for depressed, anxious or tearful Skin no wounds Lesions: no lesions Rashes: no rashes MDM MDM MDM Narrative Medical decision making narrative: 53-year-old with a stye on her left upper eyelid. Warm compresses. Motrin. Discharge Plan Triage Chief Complaint: Eye Problem ED Provider: Zain Carvajal Dx/Rx/DC Orders Clinical Impression: Stye Instructions: ED Sty Prescriptions: No Action vacscmgj-arc-becl-FA-vit K-lut 1 EACH tablet 1 tab PO DAILY omeprazole 20 MG capsule,delayed release(DR/EC) 20 mg PO BID levetiracetam 750 MG tablet 1,500 mg PO TID fluticasone propionate [Flonase Allergy Relief] 50 mcg/actuation [place],Suspension 1 spray INTRANASAL DAILY Rx Instructions: administer into each nostril oxycodone-acetaminophen 5-325 mg tablet 1 tab PO Q6H PRN PRN (Reason: Pain) 3 Days Qty: 10 0RF oxycodone-acetaminophen [Percocet] 5-325 mg tablet 1 tab PO Q6H PRN (Reason: pain) 3 Days Qty: 12 0RF levofloxacin 750 mg tablet 750 mg PO DAILY Qty: 6 0RF lidocaine 5 % ointment 1 applic topical TID PRN (Reason: skin irritation) Qty: 50 1RF prednisone 20 mg tablet 20 mg PO DAILY 5 Days Qty: 5 0RF prednisone 20 mg tablet 40 mg PO DAILY 4 Days Qty: 8 0RF Primary Care Provider: Ari Sotomayor Referrals: Ari Sotomayor DO [Primary Care Provider] - Raul Rodriguez MD [Med Staff - Active Staff] - 1 Week if not improving Activity Restrictions/Additional Instructions: Warm compresses to your left eye for 5 times a day for 30 minutes each time. Motrin and Tylenol for pain. Follow-up with the eye doctor if not improving. It may take several days for the swelling to start going down. It may actually get worse before it starts getting better. Disposition Disposition: Home, Self Care
[2023-05-17] MEDS: Oxycodone/Apap 5/325 Tablet PO (18:29)
== END 2023-05-17 18:31 | disposition home or self-care (01) ==
LOC: ED 18:28
PROVIDERS: Emergency Provider Emergency Medicine; PCP Family Medicine; Visit Provider Emergency Medicine
DX: H00.014 Hordeolum externum left upper eyelid (principal); G47.30 Sleep apnea, unspecified; Z87.891 Personal history of nicotine dependence; Z86.16 Personal history of COVID-19
CPT/HCPCS: 99283

== ENCOUNTER 2023-10-07 19:09 | Emergency (ER) | payer MEDICARE, MEDICAID, SELFPAY ==
[2023-10-07 19:11] VITALS: BP 146/98; PULSE 95; RESP 20; TEMP 35.6; BMI 26.8
[2023-10-07 19:14] VITALS: BP 146/98; PULSE 95; RESP 20; TEMP 35.6
--- NOTE | 2023-10-07 19:17 | ED.VIS.BACK ---
HPI History of Present Illness Chief Complaint: Back [facility] Medical History (Updated 10/07/23 @ 22:[address] Narciso Baron, DO) Asthma Brain aneurysm Cardiac arrest Chronic pain COVID-19 Former smoker GERD (gastroesophageal reflux disease) Kidney disease Kidney stones Migraines NSTEMI (non-ST elevated myocardial infarction) Rheumatoid arthritis Seizures Sleep apnea Home Medications iwvllueq-hcof-zvaz 8 mg-folic 400 mcg-K 50 mcg-lutein 300 mcg tablet 1 tab PO DAILY supplement 03/21/19 [History Last Taken 07/26/21] omeprazole 20 mg capsule,delayed release 20 mg PO BID GERD 05/31/19 [History Last Taken 07/26/21] levetiracetam 750 mg tablet 1,500 mg PO TID seizures 12/04/19 [History Last Taken 07/26/21] fluticasone propionate 50 mcg/actuation nasal spray,suspension (Flonase Allergy Relief) 1 spray intranasal DAILY 08/24/22 [History Last Taken Unknown] oxycodone-acetaminophen 5 mg-325 mg tablet 1 tab PO Q6H PRN PRN Pain 3 days #10 TABLETS 08/24/22 [Rx Last Taken Unknown] levofloxacin 750 mg tablet 750 mg PO DAILY #6 tabs 09/23/22 [Rx Last Taken Unknown] oxycodone-acetaminophen 5 mg-325 mg tablet (Percocet) 1 tab PO Q6H PRN pain 3 days #12 tabs 09/23/22 [Rx Last Taken Unknown] lidocaine 5 % topical ointment 1 applic topical TID PRN skin irritation #50 grams 11/17/22 [Rx Last Taken Unknown] prednisone 20 mg tablet 20 mg PO DAILY 5 days #5 tabs 11/17/22 [Rx Last Taken Unknown] prednisone 20 mg tablet 40 mg (2 x 20 mg) PO DAILY 4 days #8 tabs 02/15/23 [Rx Last Taken Unknown] cyclobenzaprine 5 mg tablet 5 mg PO TID PRN muscle spasm #20 tabs 10/07/23 [Rx Last Taken Unknown] Allergy/AdvReac Type Severity Reaction Status Date / Time Penicillins Allergy Anaphylaxis Verified 10/07/23 19:10 propoxyphene napsylate Allergy Rash Verified 10/07/23 19:10 [From Darvocet-N 100] adhesive tape [plastic tape] AdvReac Other Verified 10/07/23 19:10 hydrocodone bitartrate AdvReac Itching Verified 10/07/23 19:10 [From Vicodin] Iodinated Contrast Media AdvReac Vomiting Verified 10/07/23 19:10 [contrast dye - iodinated] venom-honey bee AdvReac Chest Verified 10/07/23 19:10 [bee venom (honey bee)] tightness Surgical History History of appendectomy History of cholecystectomy Social History household members: none Smoking Status: Former smoker substance use type: does not use EXAM Physical Exam Const Vital Signs: 10/07/23 19:11 10/07/23 19:14 10/07/23 21:10 Temperature 96.1 F L 96.1 F L Temperature Source Temporal Temporal Pulse Rate 95 95 65 Respiratory Rate 20 H 20 H 12 Blood Pressure 146/98 H 146/98 H 132/78 H Blood Pressure Mean 114 114 96 Pulse Ox 98 Oxygen Delivery Method Room Air 10/07/23 22:09 Temperature 96.5 F L Temperature Source Pulse Rate 78 Respiratory Rate 18 Blood Pressure 140/84 H Blood Pressure Mean 102 Pulse Ox 99 Oxygen Delivery Method MDM MDM MDM Narrative Medical decision making narrative: HISTORY OF PRESENT ILLNESS: 53-year-old female presents with concern for back pain. Patient states she is history of seizures. She suffered a seizure today that caused her to injure her back. Patient reports a history provided by her significant other was not in the room at the time of her initial interview. No seizure was her usual seizure lasted for approximately 2 minutes. Did not have multiple seizures without return to baseline, seizures not last long and 5 minutes. Patient denies any saddle anesthesia, urinary retention, bowel or bladder incontinence, lower extremity weakness, fever or IV drug use, no recent spinal manipulation or surgery, no recent urinary catheterization. REVIEW OF SYSTEMS: Pertinent positives: Seizure, back pain Pertinent negatives: Head trauma, focal deficit PHYSICAL EXAM: Nursing triage notes reviewed, Vital signs reviewed Constitutional: please see mdm HENT: MMM Eyes: Pupils equal round and reactive to light, Extraocular muscles intact Neck: No stridor, no JVD, full neck ROM Lungs: Clear to auscultation, No wheezing or rales. No increased work of breathing, no conversational dyspnea, no accessory muscle use, no nasal flaring. No respiratory distress noted Heart: Regular rate and rhythm, No murmurs, No rubs and No gallops, 2+ distal pulses (radial, femoral, posterior tibial) in all extremities Abdomen: Soft, there is no tenderness, rigidity, rebound or guarding, no obvious peritoneal signs, no palpable pulsatile abdominal masses, no auscultated abdominal bruit : No CVAT Extremities: No edema Back: No midline step-offs or deformities noted Neuro: No focal neurological deficits, cranial nerves II through XII intact, 5/5 strength in all extremities. Intact sensation to light touch in all extremities, 2+ reflexes bilateral patella tendons. Normal gait. No ataxia. Intact sensation L1-S1 dermatomal distributions. Intact 5/5 strength in hip flexion (T12-L3). Knee extension (L2-L4). Ankle dorsiflexion (L4-L5). Ankle plantar flexion (S1). Great toe extension (L5). 2+ patellar and Achilles DTRs. Skin: Lumbar incision scar clean dry intact MEDICAL DECISION MAKING: Chief Complaint: Back pain External records reviewed: CT scan lumbar spine from 2022 shows Stable examination without acute bony abnormality or change in the appearance of the distal lumbar fusion with posterior hardware. Factors affecting care: C seizure disorder on Keppra, CVA VA, brain aneurysm, paroxysmal A-fib, gastroparesis, MDM Narrative: Patient was hemodynamically stable, afebrile, nontoxic-appearing. Primary secondary trauma surveys concerning for back injury and left hip injury. Given the patient's report of headache and history of brain aneurysm I did obtain a CT scan of the brain. Cannot do a contrasted study secondary to reported contrast allergy I considered the following differential diagnosis: Bony injury to the back, hip, hyponatremia, noncompliance ALL IMAGES (IF OBTAINED) HAVE BEEN PERSONALLY REVIEWED AND INTERPRETED BY MYSELF. EKG with normal sinus rhythm, normal axis, normal normals, no STEMI CBC without leukocytosis, severe anemia, no thrombocytopenia. CMP without evidence of acute kidney injury, significant electrolyte abnormality, anion gap, no evidence hepatobiliary pathology. CT scan lumbar spine shows no evidence of fracture dislocation X-ray left hip was read and reviewed by myself shows no evidence of fracture dislocation The synthesis of the patient history, physical exam, labs images suggest breakthrough seizure, back strain, left hip strain. No evidence of acute traumatic injury or intracranial injury. Patient was given strict return precautions and follow-up with her neurologist and return if symptoms change or worsen. The patient and/or family, caregivers express understanding. The patient and/or family, caregivers agrees with the plan. Shared decision making: I will have a discussion with the patient and or visitors regarding risk/benefits of further testing or admission. They will be made aware of of the risk/benefits inherent in this decision they will be given the opportunity to voice understanding. Total critical care time today provided was at least 0 minutes. This excludes separately billable procedures. Critical care time (if documented) is secondary to the patient having high probability of clinically significant/life threatening deterioration in the patient's condition which required my urgent intervention. Impression: 1. Back contusion 2. Left hip contusion 3. History of seizures 4. Breakthrough seizures Dispo: Discharge This note was generated with [employer] dictation software. It may contain incorrect words, spelling, and punctuation that were not noted in review of the chart prior to signing. Lab Data Labs: Laboratory Results - last 24 hr 10/07/23 20:05 WBC 7.6 RBC 5.04 Hgb 15.7 H Hct 48.0 H MCV 95.2 MCH 31.2 MCHC 32.7 RDW Std Deviation 45.2 H RDW Coeff of Bere 12.9 Plt Count 301 MPV 10.0 Immature Gran % (Auto) 0.400 Neut % (Auto) 53.8 Lymph % (Auto) 37.3 [place] % (Auto) 6.3 Eos % (Auto) 1.3 Baso % (Auto) 0.9 Absolute Neuts (auto) 4.1 Absolute Lymphs (auto) 2.85 Nucleated RBC % 0 Differential Comment SCANNED Sodium 142 Potassium 3.8 Chloride 111 H Carbon Dioxide 25.0 Anion Gap 6 BUN 7 Creatinine 0.67 Estim Creat Clear Calc 106.59 Est GFR (MDRD) Af Amer 118 Est GFR (MDRD) Non-Af 98 BUN/Creatinine Ratio 10.5 Glucose 114 H Calcium 9.0 Total Bilirubin 0.10 L AST 15 ALT 16 Alkaline Phosphatase 183 H Total Protein 7.1 Albumin 3.8 Globulin 3.3 Albumin/Globulin Ratio 1.2 Radiography Diagnostic Testing: Clinical Impression(s) from Imaging Studies Brain CT 10/07/23 20:15 IMPRESSION: No acute abnormality status post aneurysm clipping. Electronically Signed: Kunal Amezquita MD at 20:52 EST , Hip/Pelvis X-Ray 10/07/23 20:15 IMPRESSION: No evidence for acute hip or pelvic fracture. Electronically Signed: Kunal Amezquita MD at 20:51 EST , Lumbar Spine CT 10/07/23 20:15 IMPRESSION: Postsurgical changes at L3-4, L4-5 and L5-S1.. No acute fracture or other significant bony pathology Electronically Signed: Kunal Amezquita MD at 21:20 EST Reading Location ID and State: [facility] / [place] Tel [phone], Service support , Discharge Plan Triage Chief Complaint: Back ED Provider: Narciso Baron Dx/Rx/DC Orders Clinical Impression: Back strain Instructions: Understanding Lumbosacral Strain Prescriptions: New cyclobenzaprine 5 mg tablet 5 mg PO TID PRN (Reason: muscle spasm) Qty: 20 0RF No Action rvwepeaq-bxj-wext-FA-vit K-lut 1 EACH tablet 1 tab PO DAILY omeprazole 20 MG capsule,delayed release(DR/EC) 20 mg PO BID levetiracetam 750 MG tablet 1,500 mg PO TID fluticasone propionate [Flonase Allergy Relief] 50 mcg/actuation [place],Suspension 1 spray INTRANASAL DAILY Rx Instructions: administer into each nostril oxycodone-acetaminophen 5-325 mg tablet 1 tab PO Q6H PRN PRN (Reason: Pain) 3 Days Qty: 10 0RF oxycodone-acetaminophen [Percocet] 5-325 mg tablet 1 tab PO Q6H PRN (Reason: pain) 3 Days Qty: 12 0RF levofloxacin 750 mg tablet 750 mg PO DAILY Qty: 6 0RF lidocaine 5 % ointment 1 applic topical TID PRN (Reason: skin irritation) Qty: 50 1RF prednisone 20 mg tablet 20 mg PO DAILY 5 Days Qty: 5 0RF prednisone 20 mg tablet 40 mg PO DAILY 4 Days Qty: 8 0RF Primary Care Provider: Ari Sotomayor Referrals: Ari Sotomayor DO [Primary Care Provider] -
--- NOTE | 2023-10-07 19:32 | EKG12_ITS ---
Test Reason : DYSRHYTHMIA Blood Pressure : / mmHG Vent. Rate : 076 BPM Atrial Rate : 076 BPM P-R Int : 158 ms QRS Dur : 094 ms QT Int : 406 ms P-R-T Axes : 062 066 066 degrees QTc Int : 456 ms Normal sinus rhythm RSR' or QR pattern in V1 suggests right ventricular conduction delay Borderline ECG Confirmed by Dawit Christensen ([id number]), supervising editor trailer MARQUIS AVILA ([id number]) on 10/08/2023 8:04:35 AM Referred By: Confirmed By:Dawit Christensen
--- NOTE | 2023-10-07 20:15 | RAD_ITS ---
STUDY: X-RAY - PELVIS AND LEFT HIP REASON FOR EXAM: Female, 53 years old. hip pain after fall TECHNIQUE: 3 views of the pelvis and hip. COMPARISON: None. FINDINGS: There is a non-specific bowel gas pattern. Normal visualized soft tissue structures. Normal bilateral iliac wings, sacroiliac joints and visualized sacrum. Normal bilateral superior and inferior pubic rami. Normal pubic symphysis. Normal bilateral ischial tuberosities. Postsurgical changes of the lumbar spine. Generator device projecting over the left iliac wing Normal visualized femoral head. Normal acetabulum. Normal hip joint. RAD/HIP, UNI W/ Pelvis 2-3 Views IMPRESSION: No evidence for acute hip or pelvic fracture. Electronically Signed: Kunal Amezquita MD at 20:51 EST ,
--- NOTE | 2023-10-07 20:15 | CT_ITS ---
STUDY: CT LUMBAR SPINE WITHOUT CONTRAST REASON FOR EXAM: Female, 53 years old. back pain after fall RADIATION DOSAGE (If Supplied By Facility): CTDIvol = ( 14.33 ) mGy, DLP = ( 520.37 ) mGycm TECHNIQUE: The patient was scanned in a multi detector CT scanner. High resolution transaxial imaging was performed. Images were obtained from to . Sagittal and coronal images were reconstructed. Individualized dose optimization techniques were used for this CT. COMPARISON: CT lumbar spine October 14, 2022 FINDINGS: Normal lumbar lordosis. There is no substantial scoliosis. Normal vertebrae of the lumbar spine. L1-2: Normal endplates. Normal disc height and morphology. Normal bilateral facet joints. Normal central canal and bilateral lateral recesses. Normal bilateral intervertebral neural foramina. L2-3: Normal endplates. Normal disc height and morphology. Normal bilateral facet joints. Normal central canal and bilateral lateral recesses. Normal bilateral intervertebral neural foramina. L3-4: Status post bilateral laminectomy and posterior fusion with disc spacer placement Normal endplates. Normal disc height and morphology. Normal bilateral facet joints. Normal central canal and bilateral lateral recesses. Normal bilateral intervertebral neural foramina. L4-5: Status post bilateral laminectomy posterior fusion Normal endplates. Normal disc height and morphology. Normal bilateral facet joints. Normal central canal and bilateral lateral recesses. Normal bilateral intervertebral neural foramina. L5-S1: Status post bilateral laminectomy and posterior fusion Normal endplates. Normal disc height and morphology. Normal bilateral facet joints. Normal central canal and bilateral lateral recesses. Normal bilateral intervertebral neural foramina. Normal visualized paraspinous soft tissue structures. CT/Spine Lumbar without Contrast IMPRESSION: Postsurgical changes at L3-4, L4-5 and L5-S1.. No acute fracture or other significant bony pathology Electronically Signed: Kunal Amezquita MD at 21:20 EST ,
--- NOTE | 2023-10-07 20:15 | CT_ITS ---
STUDY: CT BRAIN WITHOUT CONTRAST REASON FOR EXAM: Female, 53 years old. headache hx of brain aneurysm RADIATION DOSAGE (If Supplied By Facility): CTDIvol = ( 44.99 ) mGy, DLP = ( 829.85 ) mGycm TECHNIQUE: Transaxial CT imaging of the brain was performed without administration of intravenous contrast material. Individualized dose optimization techniques were used for this CT. COMPARISON: July 27, 2021. FINDINGS: Normal soft tissue structures. Normal calvarium. Normal size ventricles and extra-axial spaces for the patient''s age. Normal white matter tracts of the cerebral hemispheres. Normal basal ganglia and thalami. Normal brainstem. Normal cerebellum. 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 There are no findings of an acute ischemic infarction. Normal visualized paranasal sinuses. CT/Brain/Head without Contrast IMPRESSION: No acute abnormality status post aneurysm clipping. Electronically Signed: Kunal Amezquita MD at 20:52 EST ,
[2023-10-07 20:23] LABS: Absolute Lymphocyte Count 2.85 X10^3/uL (0.83-4.51); Absolute Neutrophil Count 4.1 X10^3/uL (2.0-7.7); Basophil# 0.07 X10^3/uL; Basophil% 0.9 % (0-1); Eosinophils% 1.3 % (0-5); Hemoglobin 15.7 g/dL (12.0-15.0); Lymphocyte # 2.85 X10^3/ul (0.83-4.51); Lymphocyte % 37.3 % (19-41); Mean Corp Hgb Conc 32.7 g/dL (32-36); Mean Corpuscular Hgb 31.2 pg (27.0-32.0); Mean Corpuscular Volume 95.2 fL (81-99); Monocyte# 0.48 X10^3/uL; Monocyte% 6.3 % (0-10); NRBC Flagged by Analyzer 0 % (0-5); Neutrophil # 4.11 X10^3/uL (2.7-7.7); Neutrophil % 53.8 % (47-70); POSITIVE COUNT YES; Platelet Count 301 K/mm3 (150-450); RBC Distribution Width CV 12.9 % (11.6-14.6); RBC Distribution Width SD 45.2 fl (35.1-43.9); Red Blood Count 5.04 M/mm3 (4.2-5.4); White Blood Count 7.6 K/mm3 (4.4-11.0)
[2023-10-07 20:25] LABS: Differential Indicated SCAN CRITERIA MET
[2023-10-07 20:30] LABS: ALB/GLOB Ratio 1.2 RATIO (0.9-2.4); AST(SGOT) 15 U/L (15-37); Alanine Aminotransfer ALT/SGPT 16 U/L (13-56); Albumin, Serum 3.8 g/dL (3.2-5.0); Alkaline Phosphatase 183 U/L (45-117); Anion Gap 6 (5-15); BUN 7 mg/dL (7-18); BUN/Creat Ratio 10.5 RATIO (10-20); Chloride 111 mmol/L (98-107); Creatinine, Serum 0.67 mg/dL (0.55-1.02); EST Glomerular Filtration Rate 98 mL/min (>60); Est Glom Filt Rate - Afr Amer 118 mL/min (>60); Estimated Creatinine Clearance 106.59 ml/min; Globulin 3.3 g/dL (2.2-4.2); Glucose 114 mg/dL (74-106); Potassium 3.8 mmol/L (3.5-5.1); Protein, Total 7.1 g/dL (6.4-8.2); Sodium Level 142 mmol/L (136-145)
[2023-10-07 20:37] LABS: Differential Comment SCANNED
[2023-10-07 21:10] VITALS: BP 132/78; PULSE 65; RESP 12; O2SAT 98
[2023-10-07] MEDS: Morphine 4 MG/ML Syringe IV (21:10)
[2023-10-07 22:09] VITALS: BP 140/84; PULSE 78; RESP 18; TEMP 35.8; O2SAT 99
== END 2023-10-07 22:29 | disposition home or self-care (01) ==
LOC: ED 19:31
PROVIDERS: Emergency Provider Emergency Medicine; PCP Family Medicine; Visit Provider Emergency Medicine
DX: S39.012A Strain of muscle, fascia and tendon of lower back, initial encounter (principal); G40.509 Epileptic seizures related to external causes, not intractable, without status epilepticus; X58.XXXA Exposure to other specified factors, initial encounter; S30.0XXA Contusion of lower back and pelvis, initial encounter; S70.02XA Contusion of left hip, initial encounter; I25.2 Old myocardial infarction; Z79.899 Other long term (current) drug therapy; Z86.16 Personal history of COVID-19; Z87.891 Personal history of nicotine dependence
CPT/HCPCS: 70450; 72131; 73502; 80053; 85025; 93005; 96374; 99284; J7030; A4216

== ENCOUNTER 2023-11-18 18:41 | Emergency (ER) | payer MEDICARE, MEDICAID, SELFPAY ==
[2023-11-18 18:42] VITALS: BP 137/83; PULSE 91; RESP 16; TEMP 36.4; O2SAT 97
[2023-11-18 18:49] VITALS: BMI 27.5
--- NOTE | 2023-11-18 19:00 | RAD_ITS ---
STUDY: X-RAY - LEFT FOOT CLINICAL: Female, 53 years old. Pain TECHNIQUE: 3 view(s) of the foot. COMPARISON: None. FINDINGS: Normal talus, calcaneus, and tarsal bones. Normal visualized subtalar, talonavicular, calcaneocuboid, tarsal and tarsometatarsal articulations. Normal metatarsi. Normal metatarsophalangeal joint of the great toe. Normal tibial and fibular sesamoid bones. Normal interphalangeal joint of the great toe. Normal phalanges of the great toe. Normal second through fifth metatarsophalangeal joints. Normal interphalangeal joints and phalanges of the lesser toes. The soft tissue structures are unremarkable. There is no demonstrated fracture. RAD/Foot min 3 Views IMPRESSION: Normal x-ray examination of the foot. Electronically Signed: Kenny Gupta MD at 19:20 EDT ,
--- NOTE | 2023-11-18 19:14 | EDS_ITS ---
HPI <Melinda Millard RN - Last Filed: 11/18/23 19:20> History of Present Illness HPI Narrative: Patient is a 53-year-old female who presents to the ED for complaints of left foot pain x 2 weeks which is worsened over the past 4 days. Patient reports pain is similar to when she had a heel spur approximately 20 to 25 years ago. She did not have surgery for the heel spur. She denies injury. She has been taking Tylenol and Aleve without relief. She denies numbness and tingling. Denies chest pain, shortness of breath, recent surgeries, or travel. Chief Complaint: Lower Extremity Injury Informant: patient Occured/Mechanism Comment: No injury Onset/Context/Timing Onset: Weeks (2) Context: Gradual Onset Timing: Continuous Quality of Pain: Sharp Location: Plantar aspect of left foot Current Severity: 8/10 Maximum Severity: 8/10 Worsened by: Ambulation Relieved by: Rest Associated Symptoms Associated Symptoms: Negative for Parasthesia, Weakness or Loss of Funtion PFSH <Melinda Millard RN - Last Filed: 11/18/23 19:20> PFS Medical History Asthma Brain aneurysm Cardiac arrest Chronic pain COVID-19 Former smoker GERD (gastroesophageal reflux disease) Kidney disease Kidney stones Migraines NSTEMI (non-ST elevated myocardial infarction) Rheumatoid arthritis Seizures Sleep apnea Home Medications wuczysop-dazg-kyvq 8 mg-folic 400 mcg-K 50 mcg-lutein 300 mcg tablet 1 tab PO DAILY supplement 03/21/19 [History Last Taken 07/26/21] omeprazole 20 mg capsule,delayed release 20 mg PO BID GERD 05/31/19 [History Last Taken 07/26/21] levetiracetam 750 mg tablet 1,500 mg PO TID seizures 12/04/19 [History Last Taken 07/26/21] fluticasone propionate 50 mcg/actuation nasal spray,suspension (Flonase Allergy Relief) 1 spray intranasal DAILY 08/24/22 [History Last Taken Unknown] oxycodone-acetaminophen 5 mg-325 mg tablet 1 tab PO Q6H PRN PRN Pain 3 days #10 TABLETS 08/24/22 [Rx Last Taken Unknown] levofloxacin 750 mg tablet 750 mg PO DAILY #6 tabs 09/23/22 [Rx Last Taken Unknown] oxycodone-acetaminophen 5 mg-325 mg tablet (Percocet) 1 tab PO Q6H PRN pain 3 days #12 tabs 09/23/22 [Rx Last Taken Unknown] lidocaine 5 % topical ointment 1 applic topical TID PRN skin irritation #50 grams 11/17/22 [Rx Last Taken Unknown] prednisone 20 mg tablet 20 mg PO DAILY 5 days #5 tabs 11/17/22 [Rx Last Taken Unknown] prednisone 20 mg tablet 40 mg (2 x 20 mg) PO DAILY 4 days #8 tabs 02/15/23 [Rx Last Taken Unknown] cyclobenzaprine 5 mg tablet 5 mg PO TID PRN muscle spasm #20 tabs 10/07/23 [Rx Last Taken Unknown] Allergy/AdvReac Type Severity Reaction Status Date / Time Penicillins Allergy Anaphylaxis Verified 11/18/23 18:45 propoxyphene napsylate Allergy Rash Verified 11/18/23 18:45 [From Darvocet-N 100] adhesive tape [plastic tape] AdvReac Other Verified 11/18/23 18:45 hydrocodone bitartrate AdvReac Itching Verified 11/18/23 18:45 [From Vicodin] Iodinated Contrast Media AdvReac Vomiting Verified 11/18/23 18:45 [contrast dye - iodinated] venom-honey bee AdvReac Chest Verified 11/18/23 18:45 [bee venom (honey bee)] tightness Surgical History History of appendectomy History of cholecystectomy Social History household members: none Smoking Status: Former smoker substance use type: does not use ROS <Melinda Millard RN - Last Filed: 11/18/23 19:20> ROS ED Constitutional Constitutional ED: Denies chills, fever(s) or sweats Eyes Eyes: Denies change in vision Cardiovascular Cardiovascular: Denies chest pain, orthopnea, palpitations or paroxysmal nocturnal dyspnea Respiratory/Chest Respiratory/Chest: Denies cough, dyspnea, dyspnea on exertion, orthopnea or paroxysmal nocturnal dyspnea Gastrointestinal Gastrointestinal: Reports nausea and other Details: Patient reports nausea related to pain ; Denies abdominal pain, constipation, diarrhea or vomiting Genitourinary Genitourinary ED: Denies dysuria, hematuria or urinary frequency Musculoskeletal Musculoskeletal: Reports arthralgias; Denies back pain, myalgias or neck pain Integumentary Denies abscess, Abrasions or rash Neurologic Neurologic: Denies headache(s), paresthesias or weakness Psychiatric Psychiatric: Reports anxiety Endocrine Endocrinology: Denies polydipsia, polyphagia or polyuria Hematologic/Lymphatic Hematologic/Lymphatic: Denies easy bleeding or easy bruising EXAM <Melinda Millard RN - Last Filed: 11/18/23 19:20> Physical Exam Narrative Exam Narrative: Patient awake, alert, tearful, cooperative Const Vital Signs: 11/18/23 18:42 11/18/23 19:22 Temperature 97.5 F L 98.6 F Temperature Source Temporal Pulse Rate 91 92 Respiratory Rate 16 22 H Blood Pressure 137/83 H 145/80 H Blood Pressure Mean 101 101 Pulse Ox 97 99 Oxygen Delivery Method Room Air Positive well nourished and well developed General Appearance ED: well developed and NAD HEENT Reports moist mucous membranes Eyes PERRL Neck full ROM and supple Chest Wall inspection of chest normal and palpation of chest normal Resp normal respiratory effort, no retractions and clear to auscultation bilaterally Auscultation: Negative for rales, rhonchi or wheezes Cardio regular rate, regular rhythm, S1 normal heart sound and S2 normal heart sound GI non-tender and non-distended Auscultation: normoactive bowel sounds Palpation: soft Extremity full ROM Extremity Narrative: Left foot with pain to plantar aspect of foot. No visible injury. No erythema. Pain increases with palpation. General Extremety ED: Negative for cyanosis or edema General Extremity: Negative for cyanosis or edema Neuro oriented x3 Sensorium / Orientation: alert Motor Exam: strength 5/5 throughout Psych mental status grossly normal Mood & Affect: anxious Skin no wounds Lesions: no lesions Rashes: no rashes <Dr. Zain Carvajal MD - Last Filed: 11/18/23 19:28> Physical Exam Const Vital Signs: 11/18/23 18:42 11/18/23 19:22 Temperature 97.5 F L 98.6 F Temperature Source Temporal Pulse Rate 91 92 Respiratory Rate 16 22 H Blood Pressure 137/83 H 145/80 H Blood Pressure Mean 101 101 Pulse Ox 97 99 Oxygen Delivery Method Room Air MDM <Melinda Millard RN - Last Filed: 11/18/23 19:20> [facility] Narrative Medical decision making narrative: Left foot x-ray ordered to evaluate for trauma or foreign object. History & Record Review Discussion w/independent historian: Patient Radiography Diagnostic Testing: Clinical Impression(s) from Imaging Studies Foot X-Ray 11/18/23 19:00 IMPRESSION: Normal x-ray examination of the foot. Electronically Signed: Kenny Gupta MD at 19:20 EDT , Left foot x-ray interpreted by Dr. Carvajal showing small left heel spur. Differential Diagnosis Differential Diagnosis: Heel spur Management Discussion w/another healthcare provider: Other (Dr. Carvajal, ED provider) Treatment and Re-Evaluation Narrative: Upon reevaluation, patient sitting on ED cot, tearful. X-ray results reviewed with patient indicating bone spur. Patient instructed to take Tylenol or ibuprofen for pain. Use ice for pain. May also use shoe inserts to assist with pain. Patient to follow-up with Dr. Mandujano from podiatry. Patient agreeable with plan and to be discharged home. <Dr. Zain Carvajal MD - Last Filed: 11/18/23 19:28> [facility] Narrative Medical decision making narrative: Left foot x-ray ordered to evaluate for trauma or foreign object. I have personally performed a face to face assessment of the patient and have reviewed the [facility] Note. I performed a substantive portion of the visit including all aspects of the following. My garcia findings include: History is [53-year-old female complaining of pain in the heel of her right foot. Denies any trauma. History of a heel spur. It has been bothering her for days. No redness. No swelling. No trauma. No prior foot surgery. More painful to walk.] Exam is [well-appearing 53-year-old female. Vital signs are stable afebrile. HEENT exam unremarkable. Neck nontender. Lungs clear. Heart regular rhythm. Abdomen soft. Moving all 4 extremities. Neurovascular intact. Right leg normal flexion extension of right hip, knee ankle and foot. She has exquisite tenderness on 1 single location on the bottom of her heel. There is no swelling. No redness or warmth. No signs of infection or cellulitis. Normal DP pulse. Able to wiggle her toes. No signs of plantar fasciitis.] Medical Decision Making [exam and history are consistent with pain from a heel spur. X-ray was obtained there is a small heel spur. We discussed treatment. Ibuprofen and Tylenol. Ice. Extra padding in her shoe. And follow-up with the base remover on-call.] Other additions or changes: [None] Radiography Diagnostic Testing: Clinical Impression(s) from Imaging Studies Foot X-Ray 11/18/23 19:00 IMPRESSION: Normal x-ray examination of the foot. Electronically Signed: Kenny Gupta MD at 19:20 EDT , Discharge Plan Triage Chief Complaint: Lower Extremity Injury ED Provider: Zain Carvajal Dx/Rx/DC Orders Clinical Impression: Heel spur, Bone spur of foot Instructions: ED Heel Spur Prescriptions: No Action vohxfxzw-sks-liet-FA-vit K-lut 1 EACH tablet 1 tab PO DAILY omeprazole 20 MG capsule,delayed release(DR/EC) 20 mg PO BID levetiracetam 750 MG tablet 1,500 mg PO TID fluticasone propionate [Flonase Allergy Relief] 50 mcg/actuation [place],Suspension 1 spray INTRANASAL DAILY Rx Instructions: administer into each nostril oxycodone-acetaminophen 5-325 mg tablet 1 tab PO Q6H PRN PRN (Reason: Pain) 3 Days Qty: 10 0RF oxycodone-acetaminophen [Percocet] 5-325 mg tablet 1 tab PO Q6H PRN (Reason: pain) 3 Days Qty: 12 0RF levofloxacin 750 mg tablet 750 mg PO DAILY Qty: 6 0RF lidocaine 5 % ointment 1 applic topical TID PRN (Reason: skin irritation) Qty: 50 1RF prednisone 20 mg tablet 20 mg PO DAILY 5 Days Qty: 5 0RF prednisone 20 mg tablet 40 mg PO DAILY 4 Days Qty: 8 0RF cyclobenzaprine 5 mg tablet 5 mg PO TID PRN (Reason: muscle spasm) Qty: 20 0RF Primary Care Provider: Amandeep Loredo Referrals: Amandeep Loredo, DO [Primary Care Provider] - Dawit Mandujano DPM [Med Staff - Active Staff] - As soon as possible Activity Restrictions/Additional Instructions: Pain caused by her heel spur. Motrin, Advil or ibuprofen for pain and swelling. Tylenol for pain. Ice to your heel. Buy extra padding to put in your shoe like a gel cup. Call and follow-up with the base remover Dr. Dawit Mandujano for further evaluation and treatment of the heel spur. Disposition Disposition: Home, Self Care Discharge Date/Time: 11/18/23 19:23
[2023-11-18 19:22] VITALS: BP 145/80; PULSE 92; RESP 22; TEMP 37; O2SAT 99
== END 2023-11-18 19:23 | disposition home or self-care (01) ==
PROVIDERS: Emergency Provider Emergency Medicine; PCP Family Medicine; Visit Provider Emergency Medicine
DX: M77.32 Calcaneal spur, left foot (principal); Z86.16 Personal history of COVID-19; Z87.891 Personal history of nicotine dependence
CPT/HCPCS: 73630; 99282

== ENCOUNTER 2023-12-01 02:06 | Emergency (ER) | payer MEDICARE, MEDICAID, SELFPAY ==
[2023-12-01 02:07] VITALS: BP 142/92; PULSE 98; RESP 16; TEMP 37.2; O2SAT 97; BMI 26.7
--- NOTE | 2023-12-01 02:20 | CT_ITS ---
EXAM: CT ABDOMEN AND PELVIS WITHOUT INTRAVENOUS CONTRAST CLINICAL INDICATION: Pain Pain. Abdominal cramping since 10:00 AM yesterday. History of GERD gastroparesis, kidney stones. History of appendectomy, cholecystectomy, gastric pacemaker, and lumbar fusion. TECHNIQUE: Helically acquired images were obtained of the abdomen and pelvis without intravenous contrast. This CT exam was performed using one or more of the following dose reduction techniques: automated exposure control, adjustment of the mA and/or kV according to patient size, and/or use of iterative reconstruction technique. RADIATION DOSE: CTDIvol = 8.73 mGy, DLP = 423.22 mGy-cm COMPARISON: CT scan 08/24/2022. FINDINGS: LOWER THORAX: There is a small hiatal hernia. Lung bases are clear. No cardiomegaly. No significant pericardial effusion. ABDOMEN: LIVER: There is decreased attenuation of the liver consistent with fatty infiltration. GALLBLADDER AND BILE DUCTS: The gallbladder is surgically absent. No intra- or extrahepatic biliary ductal dilation. PANCREAS: Unremarkable. No focal cystic mass. SPLEEN: Unremarkable. Normal size without focal cystic or solid mass. ADRENALS: Unremarkable. No nodules. KIDNEYS AND URETERS: There is a small simple appearing right renal cyst. No follow-up imaging is necessary for simple renal cysts or cysts that are too small to characterize. Normal renal size and position. No hydronephrosis. STOMACH AND BOWEL: There are colonic diverticula. There is no evidence for acute diverticulitis. No stomach or bowel distention. PELVIS: APPENDIX: The appendix is not identified, consistent with given history of prior appendectomy. BLADDER: Unremarkable. REPRODUCTIVE: The uterus is absent, consistent with a previous hysterectomy. ABDOMEN and PELVIS: INTRAPERITONEAL SPACE: Unremarkable. No ascites or other fluid collection. No free air. BONES/JOINTS: There are post surgical changes in the lumbar spine. No suspicious lytic or blastic abnormality. SOFT TISSUES: There is an implanted electronic box in the left anterior subcutaneous fat with associated electrodes adjacent to the greater curvature of the body the stomach, consistent with gastric pacemaker. No discrete abdominal or pelvic wall hernia. VASCULATURE: There is mild atherosclerotic calcification of the abdominal aorta. Abdominal aorta is non-dilated. LYMPH NODES: Unremarkable. No enlarged lymph nodes. CT/Abdomen/Pelvis without Cont IMPRESSION: 1. Colonic diverticulosis without evidence for acute diverticulitis. 2. Fatty liver. 3. Small hiatal hernia. 4. Gastric pacemaker. Previous hysterectomy. Previous cholecystectomy. Previous appendectomy. Previous L spine surgery. 5. Atherosclerosis. 6. No evidence for acute pathology. Electronically Signed: Darius Augustine MD at 5:00 EDT Reading Location ID and State: [facility] / [place] , Service support ,
--- NOTE | 2023-12-01 02:22 | EX.ED.DYSGE1 ---
HPI History of Present Illness Chief Complaint: Nausea/Vomiting/Diarrhea Informant: patient Narrative Narrative: 53-year-old female presenting to the emergency room with a chief complaint of vomiting diarrhea. Patient states that yesterday morning around 10 AM (16 hours ago) she began to have vomiting and diarrhea. She notes a sharp cramping pain in her epigastrium. She notes a history of gastroparesis sees GI in [place] for a gastric stimulator. No reported fevers. She tried some Pepto-Bismol earlier today which she states she threw up. She feels chilled. She denies sick contacts or possible bad food exposure. [facility] Medical History Asthma Brain aneurysm Cardiac arrest Chronic pain COVID-19 Former smoker GERD (gastroesophageal reflux disease) Kidney disease Kidney stones Migraines NSTEMI (non-ST elevated myocardial infarction) Rheumatoid arthritis Seizures Sleep apnea Home Medications jwscmtof-mubv-ljbg 8 mg-folic 400 mcg-K 50 mcg-lutein 300 mcg tablet 1 tab PO DAILY supplement 03/21/19 [History Last Taken 07/26/21] omeprazole 20 mg capsule,delayed release 20 mg PO BID GERD 05/31/19 [History Last Taken 07/26/21] levetiracetam 750 mg tablet 1,500 mg PO TID seizures 12/04/19 [History Last Taken 07/26/21] fluticasone propionate 50 mcg/actuation nasal spray,suspension (Flonase Allergy Relief) 1 spray intranasal DAILY 08/24/22 [History Last Taken Unknown] oxycodone-acetaminophen 5 mg-325 mg tablet 1 tab PO Q6H PRN PRN Pain 3 days #10 TABLETS 08/24/22 [Rx Last Taken Unknown] levofloxacin 750 mg tablet 750 mg PO DAILY #6 tabs 09/23/22 [Rx Last Taken Unknown] oxycodone-acetaminophen 5 mg-325 mg tablet (Percocet) 1 tab PO Q6H PRN pain 3 days #12 tabs 09/23/22 [Rx Last Taken Unknown] lidocaine 5 % topical ointment 1 applic topical TID PRN skin irritation #50 grams 11/17/22 [Rx Last Taken Unknown] prednisone 20 mg tablet 20 mg PO DAILY 5 days #5 tabs 11/17/22 [Rx Last Taken Unknown] prednisone 20 mg tablet 40 mg (2 x 20 mg) PO DAILY 4 days #8 tabs 02/15/23 [Rx Last Taken Unknown] cyclobenzaprine 5 mg tablet 5 mg PO TID PRN muscle spasm #20 tabs 10/07/23 [Rx Last Taken Unknown] promethazine 25 mg tablet 25 mg PO Q6H PRN PRN Nausea #15 TABLETS 12/01/23 [Rx Last Taken Unknown] Allergy/AdvReac Type Severity Reaction Status Date / Time Penicillins Allergy Anaphylaxis Verified 11/18/23 18:45 propoxyphene napsylate Allergy Rash Verified 11/18/23 18:45 [From Darvocet-N 100] adhesive tape [plastic tape] AdvReac Other Verified 11/18/23 18:45 hydrocodone bitartrate AdvReac Itching Verified 11/18/23 18:45 [From Vicodin] Iodinated Contrast Media AdvReac Vomiting Verified 11/18/23 18:45 [contrast dye - iodinated] venom-honey bee AdvReac Chest Verified 11/18/23 18:45 [bee venom (honey bee)] tightness Surgical History History of appendectomy History of cholecystectomy Social History household members: none Smoking Status: Former smoker substance use type: does not use ROS ROS ED Constitutional Constitutional ED: Reports chills; Denies fever(s) or weight loss Eyes Eyes: Denies change in vision or diplopia ENT ENT ED: Denies ear pain, rhinorrhea or sore throat Cardiovascular Cardiovascular: Denies chest pain, orthopnea, palpitations or racing heartbeat Respiratory/Chest Respiratory/Chest: Denies cough, dyspnea or orthopnea Gastrointestinal Gastrointestinal: Reports abdominal pain, diarrhea, nausea and vomiting Genitourinary Genitourinary ED: Denies dysuria, hematuria or urinary frequency Musculoskeletal Musculoskeletal: Denies arthralgias or myalgias Integumentary Denies abscess or rash Neurologic Neurologic: Denies headache(s) or weakness Psychiatric Psychiatric: Denies anxiety, depression, suicidal ideation or suicidal thoughts Endocrine Endocrinology: Denies polydipsia, polyphagia or polyuria Allergic/Immunologic Allergic/Immunologic ED: Denies mouth swelling, tongue swelling or urticaria EXAM Physical Exam Const Vital Signs: 12/01/23 02:07 12/01/23 04:06 Temperature 99 F 99.4 F H Temperature Source Oral Temporal Pulse Rate 98 98 Respiratory Rate 16 16 Blood Pressure 142/92 H 165/81 H Blood Pressure Mean 108 109 Pulse Ox 97 97 Oxygen Delivery Method Room Air Room Air Positive well nourished and well developed General Appearance ED: well developed HEENT Reports normocephalic, head/scalp atraumatic and moist mucous membranes Eyes PERRL and EOMs intact bilaterally Neck no lymphadenopathy, supple and no JVD Resp normal respiratory effort and clear to auscultation bilaterally Cardio regular rate, regular rhythm and no murmurs GI Inspection: Negative for abdominal distention Auscultation: normoactive bowel sounds Palpation: soft and tender epigastric Back/Spine no CVA tenderness and normal ROM Extremity normal to inspection General Extremety ED: Negative for edema General Extremity: Negative for edema Neuro oriented x3 and CN's II-XII intact bilaterally Sensorium / Orientation: alert Motor Exam: strength 5/5 throughout Psych mental status grossly normal Mood & Affect: Negative for depressed or tearful Skin no rashes or lesions noted and no wounds MDM MDM MDM Narrative Medical decision making narrative: Basic blood work showed a white count of 14.3 hemoglobin of 15.7 platelet count of 345. CMP with a potassium of 3.0 which is most likely due to the vomiting. Glucose 117 alk phos [address] of the abdomen pelvis was obtained. I am not seeing evidence of small bowel obstruction ileus colitis biliary ductal dilatation pancreatitis or other inflammatory conditions. More than likely believe the patient has a viral illness. She received IV fluids Zofran which did not help followed by Compazine and Benadryl. I will write for the patient to have nausea medication at home. Will have her follow-up with primary care. Imodium as needed for the diarrhea. Patient does not appear to have had further vomiting or diarrhea here in the department History & Record Review Discussion w/independent historian: Patient Lab Data Attestation: I reviewed the patient's lab results. Labs: Laboratory Results - last 24 hr 12/01/23 02:45 WBC 14.3 H RBC 5.07 Hgb 15.7 H Hct 47.5 H MCV 93.7 MCH 31.0 MCHC 33.1 RDW Std Deviation 42.5 RDW Coeff of Bere 12.3 Plt Count 345 MPV 9.6 Immature Gran % (Auto) 0.400 Neut % (Auto) 76.8 H Lymph % (Auto) 15.9 L Harper % (Auto) 6.4 Eos % (Auto) 0.1 Baso % (Auto) 0.4 Absolute Neuts (auto) 11.0 H Absolute Lymphs (auto) 2.28 Nucleated RBC % 0 Sodium 141 Potassium 3.0 L Chloride 102 Carbon Dioxide 30.0 Anion Gap 9 BUN 12 Creatinine 0.74 Estim Creat Clear Calc 96.45 Est GFR (MDRD) Af Amer 104 Est GFR (MDRD) Non-Af 86 BUN/Creatinine Ratio 16.1 Glucose 117 H Calcium 9.7 Total Bilirubin 0.60 Direct Bilirubin 0.13 AST 16 ALT 17 Alkaline Phosphatase 152 H Total Protein 7.7 Albumin 4.0 Globulin 3.7 Lipase 20 Radiography Diagnostic Testing: Clinical Impression(s) from Imaging Studies Abdomen/Pelvis CT 12/01/23 02:20 IMPRESSION: 1. Colonic diverticulosis without evidence for acute diverticulitis. 2. Fatty liver. 3. Small hiatal hernia. 4. Gastric pacemaker. Previous hysterectomy. Previous cholecystectomy. Previous appendectomy. Previous L spine surgery. 5. Atherosclerosis. 6. No evidence for acute pathology. Electronically Signed: Darius Augustine MD at 5:00 EDT Reading Location ID and State: [facility] / [place] , Service support , Discharge Plan Triage Chief Complaint: Nausea/Vomiting/Diarrhea ED Provider: Franki Flynn Dx/Rx/DC Orders Clinical Impression: Abdominal pain, vomiting, and diarrhea Instructions: ED Vomit Diarrhea [place] Adult Prescriptions: New promethazine [promethazine] 25 mg tablet 25 mg PO Q6H PRN PRN (Reason: Nausea) Qty: 15 0RF No Action wgfunshf-mze-atrb-FA-vit K-lut 1 EACH tablet 1 tab PO DAILY omeprazole 20 MG capsule,delayed release(DR/EC) 20 mg PO BID levetiracetam 750 MG tablet 1,500 mg PO TID fluticasone propionate [Flonase Allergy Relief] 50 mcg/actuation [place],Suspension 1 spray INTRANASAL DAILY Rx Instructions: administer into each nostril oxycodone-acetaminophen 5-325 mg tablet 1 tab PO Q6H PRN PRN (Reason: Pain) 3 Days Qty: 10 0RF oxycodone-acetaminophen [Percocet] 5-325 mg tablet 1 tab PO Q6H PRN (Reason: pain) 3 Days Qty: 12 0RF levofloxacin 750 mg tablet 750 mg PO DAILY Qty: 6 0RF lidocaine 5 % ointment 1 applic topical TID PRN (Reason: skin irritation) Qty: 50 1RF prednisone 20 mg tablet 20 mg PO DAILY 5 Days Qty: 5 0RF prednisone 20 mg tablet 40 mg PO DAILY 4 Days Qty: 8 0RF cyclobenzaprine 5 mg tablet 5 mg PO TID PRN (Reason: muscle spasm) Qty: 20 0RF Primary Care Provider: Amandeep Loredo Referrals: Amandeep Loredo DO [Primary Care Provider] - 1-2 Days if not improving Disposition Disposition: Home, Self Care Discharge Date/Time: 12/01/23 06:22
[2023-12-01 02:52] LABS: Absolute Lymphocyte Count 2.28 X10^3/uL (0.83-4.51); Basophil# 0.06 X10^3/uL; Basophil% 0.4 % (0-1); Eosinophil# 0.01 X10^3/uL; Eosinophils% 0.1 % (0-5); Hematocrit 47.5 % (37-47); Hemoglobin 15.7 g/dL (12.0-15.0); Lymphocyte # 2.28 X10^3/ul (0.83-4.51); Lymphocyte % 15.9 % (19-41); Mean Corp Hgb Conc 33.1 g/dL (32-36); Mean Corpuscular Volume 93.7 fL (81-99); Mean Platelet Vol. 9.6 fl (6.2-12.0); Monocyte# 0.92 X10^3/uL; Monocyte% 6.4 % (0-10); NRBC Flagged by Analyzer 0 % (0-5); Neutrophil % 76.8 % (47-70); Platelet Count 345 K/mm3 (150-450); RBC Distribution Width CV 12.3 % (11.6-14.6); RBC Distribution Width SD 42.5 fl (35.1-43.9); Red Blood Count 5.07 M/mm3 (4.2-5.4); White Blood Count 14.3 K/mm3 (4.4-11.0)
[2023-12-01] MEDS: Ondansetron 4 MG/2 ML Vial IV (03:06)
[2023-12-01 03:08] LABS: AST(SGOT) 16 U/L (15-37); Alanine Aminotransfer ALT/SGPT 17 U/L (13-56); Alkaline Phosphatase 152 U/L (45-117); Anion Gap 9 (5-15); BUN 12 mg/dL (7-18); BUN/Creat Ratio 16.1 RATIO (10-20); Bilirubin, Direct 0.13 mg/dL (0.00-0.30); Calcium,Total 9.7 mg/dL (8.5-10.1); Chloride 102 mmol/L (98-107); Creatinine, Serum 0.74 mg/dL (0.55-1.02); EST Glomerular Filtration Rate 86 mL/min (>60); Est Glom Filt Rate - Afr Amer 104 mL/min (>60); Estimated Creatinine Clearance 96.45 ml/min; Globulin 3.7 g/dL (2.2-4.2); Glucose 117 mg/dL (74-106); Lipase 20 U/L (13-75); Protein, Total 7.7 g/dL (6.4-8.2); Sodium Level 141 mmol/L (136-145)
[2023-12-01] MEDS: proCHLORPERazine 10 MG/2 ML Vial IV (03:32)
[2023-12-01] MEDS: DiphenhydrAMINE 50 MG/ML Syringe 25 MG IV (03:32)
[2023-12-01 04:06] VITALS: BP 165/81; PULSE 98; RESP 16; TEMP 37.4; O2SAT 97
== END 2023-12-01 06:22 | disposition home or self-care (01) ==
PROVIDERS: Emergency Provider Emergency Medicine; PCP Family Medicine; Visit Provider Emergency Medicine
DX: R10.13 Epigastric pain (principal); R11.2 Nausea with vomiting, unspecified; R19.7 Diarrhea, unspecified; K21.9 Gastro-esophageal reflux disease without esophagitis; Z90.49 Acquired absence of other specified parts of digestive tract; Z86.16 Personal history of COVID-19; Z87.891 Personal history of nicotine dependence
CPT/HCPCS: 74176; 80048; 80076; 83690; 85025; 96374; 96375; 99283; A4216; J2405

== ENCOUNTER 2024-01-24 17:27 | Emergency (ER) | payer MEDICARE, MEDICAID, SELFPAY ==
[2024-01-24 17:28] VITALS: BP 120/74; PULSE 98; RESP 18; TEMP 35.9; O2SAT 96; BMI 26.6
--- NOTE | 2024-01-24 17:46 | RAD_ITS ---
EXAM: XR LEFT ELBOW COMPLETE, 3 OR MORE VIEWS CLINICAL INDICATION: injury TECHNIQUE: Frontal, lateral and oblique views of the left elbow. COMPARISON: No relevant prior studies available. FINDINGS: BONES/JOINTS: Unremarkable. There is no displacement of the anterior or posterior fat pads. No acute fracture. No subluxation. Normal alignment. Preservation of the joint space. No destructive or sclerotic lesions. SOFT TISSUES: Unremarkable. No soft tissue swelling or gas. No radiopaque foreign body. RAD/Elbow min 3 Views IMPRESSION: Negative left elbow. Electronically Signed: José Antonio Ross MD at 18:23 EDT Reading Location ID and State: [facility] / [place] , Service support ,
--- NOTE | 2024-01-24 17:46 | RAD_ITS ---
EXAM: XR LEFT KNEE COMPLETE, 4 OR MORE VIEWS CLINICAL INDICATION: injury TECHNIQUE: Four or more views of the left knee. COMPARISON: No relevant prior studies available. FINDINGS: BONES/JOINTS: Unremarkable. No acute fracture. No subluxation. Normal alignment. Preservation of the joint space. No sclerotic or destructive changes observed. SOFT TISSUES: Unremarkable. No soft tissue swelling or gas. No radiopaque foreign body. RAD/Knee 4 or More Views IMPRESSION: Negative left knee x-rays. Electronically Signed: José Antonio Ross MD at 18:23 EDT ,
--- NOTE | 2024-01-24 17:52 | EDS_ITS ---
HPI History of Present Illness Chief Complaint: Fall Informant: patient Onset/Context/Timing Onset: Today Narrative Narrative: Patient presents after a fall at home. She was doing some gardening and turned around with a small bag of trash not realizing her grandson had his small battery-operated car next to her. She tripped over it and fell onto cement. She complains of pain to her left elbow and left knee. No loss of consciousness. She is not on any anticoagulants. She is right-hand dominant. [facility] Medical History NSTEMI (non-ST elevated myocardial infarction) Cardiac arrest COVID-19 Brain aneurysm Chronic pain Rheumatoid arthritis Kidney stones Kidney disease GERD (gastroesophageal reflux disease) Former smoker Sleep apnea Asthma Migraines Seizures Home Medications ?Medication ?Instructions ?Recorded ?Last Taken ?Type liwoczaf-beyg-rmhu 8 mg-folic 400 1 tab PO DAILY supplement 03/21/19 07/26/21 History mcg-K 50 mcg-lutein 300 mcg tablet omeprazole 20 mg capsule,delayed 20 mg PO BID GERD 05/31/19 07/26/21 History release levetiracetam 750 mg tablet 1,500 mg PO TID seizures 12/04/19 07/26/21 History fluticasone propionate 50 1 spray intranasal DAILY 08/24/22 Unknown History mcg/actuation nasal spray,suspension (Flonase Allergy Relief) oxycodone-acetaminophen 5 mg-325 1 tab PO Q6H PRN PRN Pain 3 days 08/24/22 Unknown Rx mg tablet #10 TABLETS levofloxacin 750 mg tablet 750 mg PO DAILY #6 tabs 09/23/22 Unknown Rx oxycodone-acetaminophen 5 mg-325 1 tab PO Q6H PRN pain 3 days #12 09/23/22 Unknown Rx mg tablet (Percocet) tabs lidocaine 5 % topical ointment 1 applic topical TID PRN skin 11/17/22 Unknown Rx irritation #50 grams prednisone 20 mg tablet 20 mg PO DAILY 5 days #5 tabs 11/17/22 Unknown Rx prednisone 20 mg tablet 40 mg (2 x 20 mg) PO DAILY 4 days 02/15/23 Unknown Rx #8 tabs cyclobenzaprine 5 mg tablet 5 mg PO TID PRN muscle spasm #20 10/07/23 Unknown Rx tabs promethazine 25 mg tablet 25 mg PO Q6H PRN PRN Nausea #15 12/01/23 Unknown Rx TABLETS oxycodone-acetaminophen 5 mg-325 1 tab PO Q8H PRN pain 3 days #10 01/24/24 Unknown Rx mg tablet (Percocet) tabs Allergy/AdvReac Type Severity Reaction Status Date / Time Penicillins Allergy Anaphylaxis Verified 01/24/24 17:28 propoxyphene napsylate (From Allergy Rash Verified 01/24/24 17:28 Darvocet-N 100) adhesive tape (plastic tape) AdvReac Other Verified 01/24/24 17:28 hydrocodone bitartrate (From AdvReac Itching Verified 01/24/24 17:28 Vicodin) Iodinated Contrast Media AdvReac Vomiting Verified 01/24/24 17:28 (contrast dye - iodinated) venom-honey bee (bee venom AdvReac Chest Verified 01/24/24 17:28 (honey bee)) tightness Surgical History History of appendectomy History of cholecystectomy Social History household members: none Smoking Status: Former smoker substance use type: does not use ROS ROS ED Constitutional Constitutional ED: Denies chills or fever(s) ENT ENT ED: Denies rhinorrhea or sore throat Cardiovascular Cardiovascular: Denies chest pain or palpitations Respiratory/Chest Respiratory/Chest: Denies cough or dyspnea Gastrointestinal Gastrointestinal: Denies abdominal pain, nausea or vomiting Musculoskeletal Musculoskeletal: Reports extremity pain; Denies back pain Integumentary Reports Abrasions; Denies rash Neurologic Neurologic: Denies headache(s) or weakness Psychiatric Psychiatric: Reports anxiety; Denies depression Allergic/Immunologic Allergic/Immunologic ED: Denies lip swelling or urticaria EXAM Physical Exam Const Vital Signs: 01/24/24 17:28 01/24/24 17:43 Temperature 96.6 F L Temperature Source Temporal Pulse Rate 98 Respiratory Rate 18 Respiratory Effort Normal Respiratory Depth Normal Respiratory Pattern Normal Blood Pressure 120/74 Blood Pressure Mean 89 Pulse Ox 96 Oxygen Delivery Method Room Air Positive well nourished and well developed General Appearance ED: well developed HEENT atraumatic Eyes EOMs intact bilaterally Chest Wall inspection of chest normal and palpation of chest normal Resp normal respiratory effort and clear to auscultation bilaterally Cardio regular rhythm Rate: regular rate GI non-tender Palpation: soft Extremity Extremity Narrative: Patient has diffuse tenderness at the elbow down to the mid forearm on the left upper extremity. No significant tenderness with pronation and supination. Strong distal pulses. No tenderness at the shoulder. Normal sensation on testing. No open wounds. Left lower extremity examination reveals superficial abrasions over the anterior left knee. Good range of motion with only mild surrounding tenderness to palpation. Neuro oriented x3 and moves all extremities Psych Mood & Affect: anxious and tearful MDM MDM MDM Narrative Medical decision making narrative: Patient will be given a single dose of oxycodone along with Zofran here for pain control. X-rays of the left elbow, left forearm, and left knee obtained to evaluate for potential fracture. Differential diagnosis includes sprain, strain, contusion. Radiography Diagnostic Testing: Clinical Impression(s) from Imaging Studies Elbow X-Ray 01/24/24 17:46 IMPRESSION: Negative left elbow. Electronically Signed: José Antonio Ross MD at 18:23 EDT , Knee X-Ray 01/24/24 17:46 IMPRESSION: Negative left knee x-rays. Electronically Signed: José Antonio Ross MD at 18:23 EDT Reading Location ID and State: [employer] [facility] / [place] , Service support , Forearm X-Ray 01/24/24 18:00 IMPRESSION: Negative. Electronically Signed: José Antonio Ross MD at 18:23 EDT , Treatment and Re-Evaluation Narrative: Left elbow x-ray per my interpretation was no obvious fracture. There is a questionable anterior fat pad sign. Radiology interpretation is reviewed and feels that there is no evidence of fracture. Left forearm x-ray per my interpretation feels no obvious fracture. Radiology interpretation reviewed and agrees. Left knee x-ray per my interpretation feels no acute bony injury. Radiology interpretation reviewed and agrees. John wrap is applied to the left elbow. She be placed in a sling. If symptoms not improving in 1 week she needs repeat x-rays. I will write her a short course of Percocet for pain. I did review an [facility] report and she has had no recent prescriptions. Discharge Plan Triage Chief Complaint: Fall ED Provider: Maya Monroy Dx/Rx/DC Orders Clinical Impression: Fall, Sprain of elbow, left, Contusion of left knee Instructions: ED Abrasion, ED Sprain, Elbow, ED Mechanical Fall Prescriptions: New oxycodone-acetaminophen [Percocet] 5-325 mg tablet 1 tab PO Q8H PRN (Reason: pain) 3 Days Qty: 10 0RF No Action jzczzcoa-pre-muwc-FA-vit K-lut 1 EACH tablet 1 tab PO DAILY omeprazole 20 MG capsule,delayed release(DR/EC) 20 mg PO BID levetiracetam 750 MG tablet 1,500 mg PO TID fluticasone propionate [Flonase Allergy Relief] 50 mcg/actuation [place],Suspension 1 spray INTRANASAL DAILY Rx Instructions: administer into each nostril oxycodone-acetaminophen 5-325 mg tablet 1 tab PO Q6H PRN PRN (Reason: Pain) 3 Days Qty: 10 0RF oxycodone-acetaminophen [Percocet] 5-325 mg tablet 1 tab PO Q6H PRN (Reason: pain) 3 Days Qty: 12 0RF levofloxacin 750 mg tablet 750 mg PO DAILY Qty: 6 0RF lidocaine 5 % ointment 1 applic topical TID PRN (Reason: skin irritation) Qty: 50 1RF prednisone 20 mg tablet 20 mg PO DAILY 5 Days Qty: 5 0RF prednisone 20 mg tablet 40 mg PO DAILY 4 Days Qty: 8 0RF cyclobenzaprine 5 mg tablet 5 mg PO TID PRN (Reason: muscle spasm) Qty: 20 0RF promethazine [promethazine] 25 mg tablet 25 mg PO Q6H PRN PRN (Reason: Nausea) Qty: 15 0RF Primary Care Provider: Amandeep Loredo Referrals: Amandeep Loredo DO [Primary Care Provider] - 1 Week if not improving Activity Restrictions/Additional Instructions: John wrap and sling have been provided for the left upper extremity. If pain is not significantly improved in 1 week please see your doctor for repeat x-rays to ensure no subtle fracture is noted that was initially not appreciated. Print Language: Maldivian Disposition Disposition: Home, Self Care
--- NOTE | 2024-01-24 18:00 | RAD_ITS ---
INDICATION: injury EXAMINATION/TECHNIQUE: X-RAY - LEFT XR Forearm 2 Views 2 VIEWS COMPARISON: No relevant prior comparison study available FINDINGS: SOFT TISSUES: No soft tissue swelling or gas. No radiopaque foreign body. BONES/JOINTS: No acute fracture or subluxation.. Normal alignment. Preservation of the joint space.. No sclerotic or destructive changes observed. RAD/Forearm 2 Views IMPRESSION: Negative. Electronically Signed: José Antonio Ross MD at 18:23 EDT ,
[2024-01-24] MEDS: oxyCODONE 5 MG Tablet PO (18:23)
[2024-01-24] MEDS: Ondansetron ODT 4 MG Tablet PO (18:23)
[2024-01-24 19:27] VITALS: BP 115/78; PULSE 82; RESP 16; TEMP 37.1; O2SAT 96
== END 2024-01-24 19:29 | disposition home or self-care (01) ==
PROVIDERS: Emergency Provider Emergency Medicine; PCP Family Medicine; Visit Provider Emergency Medicine
DX: S53.402A Unspecified sprain of left elbow, initial encounter (principal); S80.02XA Contusion of left knee, initial encounter; I25.2 Old myocardial infarction; G47.30 Sleep apnea, unspecified; W01.0XXA Fall on same level from slipping, tripping and stumbling without subsequent striking against object, initial encounter; Y93.H2 Activity, gardening and landscaping; Z86.16 Personal history of COVID-19; Z87.891 Personal history of nicotine dependence
CPT/HCPCS: 73080; 73090; 73564; 99284

== ENCOUNTER → 2024-01-29 | Outpatient (CLI) | payer MEDICARE, MEDICAID, SELFPAY ==
--- NOTE | 2024-01-29 08:07 | CT_ITS ---
STUDY: CT LEFT ELBOW WITHOUT CONTRAST REASON FOR EXAM: Female, 54 years old. Contusion of left elbow, initial encounter RADIATION DOSAGE (If Supplied By Facility): CTDIvol = ( 35.14 ) mGy, DLP = ( 704.66 ) mGycm TECHNIQUE: Transaxial CT imaging of the elbow was performed. Sagittal and coronal images were reconstructed. Individualized dose optimization techniques were used for this CT. COMPARISON: Left elbow x-rays dated January 24, 2024. FINDINGS: Normal visualized humerus, radius and ulna. Normal radiocapitellar and ulnotrochlear articulations. The soft tissue structures are normal. CT/Extremity Upper without Contra IMPRESSION: Normal CT examination of the elbow. Electronically Signed: Esau Otoole MD at 9:09 EDT ,
== END | disposition home or self-care (01) ==
LOC: CT 08:06
PROVIDERS: PCP Family Medicine; Referring Provider Physician Assistant Surgical; Visit Provider Physician Assistant Surgical
DX: S50.02XA Contusion of left elbow, initial encounter (principal); M25.522 Pain in left elbow
CPT/HCPCS: 73200

== ENCOUNTER 2024-05-11 20:30 | Emergency (ER) | payer MEDICARE, MEDICAID, SELFPAY ==
[2024-05-11 20:33] VITALS: BP 152/84; PULSE 77; RESP 18; TEMP 36; O2SAT 97; BMI 26.7
--- NOTE | 2024-05-11 21:57 | RAD_ITS ---
INDICATION: Injury/Pain EXAMINATION/TECHNIQUE: X-RAY - XR Spine Lumbar 2 or 3 Views COMPARISON: 10/07/2023 CT. FINDINGS: VERTEBRAE: No fracture or subluxation. Stable postsurgical changes from L3 through S1. Mild degenerative changes about the hardware. No erosive changes. SOFT TISSUES: Unremarkable. INCLUDED ABDOMEN: Visualized abdomen is unremarkable. RAD/Lumbar Spine 2 or 3 Views IMPRESSION: No fracture or subluxation. Electronically Signed: Kunal Rodriguez DO at 22:46 EDT ,
--- NOTE | 2024-05-11 21:58 | RAD_ITS ---
INDICATION: Injury/Pain EXAMINATION/TECHNIQUE: X-RAY - XR Pelvis 1 or 2 Views COMPARISON: 10/07/2023. FINDINGS: PELVIC BONES: No fracture. The sacroiliac joints are unremarkable. The pubic symphysis is not widened. HIPS: No evidence of a fracture or dislocation. SOFT TISSUES: Unremarkable. RAD/Pelvis 1 or 2 Views IMPRESSION: No evidence of a pelvic fracture. Electronically Signed: Kunal Rodriguez DO at 22:50 EDT ,
--- NOTE | 2024-05-11 21:58 | RAD_ITS ---
INDICATION: Injury/Pain EXAMINATION/TECHNIQUE: X-RAY - LEFT XR Wrist Min 3 Views COMPARISON: None. FINDINGS: SOFT TISSUES: Unremarkable. BONES/JOINTS: No fracture or dislocation. No significant degenerative changes. No erosive changes. RAD/Wrist min 3 Views IMPRESSION: No fracture or dislocation. Electronically Signed: Kunal Rodriguez DO at 22:49 EDT ,
[2024-05-11] MEDS: Ondansetron 4 MG/2 ML Vial IV (22:16)
[2024-05-11] MEDS: Morphine 4 MG/ML Syringe IM (22:16)
--- NOTE | 2024-05-11 22:24 | RAD_ITS ---
INDICATION: pain, truama EXAMINATION/TECHNIQUE: X-RAY - LEFT XR Elbow Min 3 Views COMPARISON: None. FINDINGS: SOFT TISSUES: Unremarkable. BONES/JOINTS: No fracture or dislocation. No significant degenerative changes. No erosive changes. RAD/Elbow min 3 Views IMPRESSION: No fracture or dislocation. Electronically Signed: Kunal Rodriguez DO at 22:43 EDT ,
--- NOTE | 2024-05-11 22:30 | RAD_ITS ---
INDICATION: Injury/Pain EXAMINATION/TECHNIQUE: X-RAY - LEFT XR Hand Min 3 Views COMPARISON: 06/28/2022. FINDINGS: SOFT TISSUES: Unremarkable. BONES/JOINTS: No fracture or dislocation. No significant degenerative changes. No erosive changes. RAD/Hand Min 3 Views IMPRESSION: No fracture or dislocation. Electronically Signed: Kunal Rodriguez DO at 22:48 EDT ,
--- NOTE | 2024-05-11 23:31 | EX.ED.GENINJ ---
HPI History of Present Illness Chief Complaint: Fall Informant: patient Narrative Narrative: Patient is a 54-year-old female with history of seizures, gastroparesis, proximal atrial fibrillation, migraines and C. difficile colitis (not on any blood thinners) presenting for evaluation after fall. Patient was going down a flight of stairs. She [place] when she slipped on 2 steps and then fell down another 5 steps. Her tried to catch her. She struck her left wrist and landed on her buttocks. She states she has a history of prior back surgery and this feels like there is something poking her in her left buttocks. She denies any numbness or tingling. She denies hitting her head. No other complaints or concerns at this time. [facility] Medical History NSTEMI (non-ST elevated myocardial infarction) Cardiac arrest COVID-19 Brain aneurysm Chronic pain Rheumatoid arthritis Kidney stones Kidney disease GERD (gastroesophageal reflux disease) Former smoker Sleep apnea Asthma Migraines Seizures Home Medications ?Medication ?Instructions ?Recorded ?Last Taken ?Type kcryxtaa-vvza-jmwy 8 mg-folic 400 1 tab PO DAILY supplement 03/21/19 07/26/21 History mcg-K 50 mcg-lutein 300 mcg tablet levetiracetam 750 mg tablet 1,500 mg PO TID seizures 12/04/19 07/26/21 History fluticasone propionate 50 1 spray intranasal DAILY 08/24/22 Unknown History mcg/actuation nasal spray,suspension (Flonase Allergy Relief) oxycodone-acetaminophen 5 mg-325 1 tab PO Q6H PRN PRN Pain 3 days 08/24/22 Unknown Rx mg tablet #10 TABLETS lidocaine 5 % topical ointment 1 applic topical TID PRN skin 11/17/22 Unknown Rx irritation #50 grams cyclobenzaprine 10 mg tablet 10 mg PO TID PRN Muscle Spasm #20 05/11/24 Unknown Rx TABLETS Allergy/AdvReac Type Severity Reaction Status Date / Time Penicillins Allergy Anaphylaxis Verified 05/11/24 20:30 propoxyphene napsylate (From Allergy Rash Verified 05/11/24 20:30 Darvocet-N 100) adhesive tape (plastic tape) AdvReac Other Verified 05/11/24 20:30 hydrocodone bitartrate (From AdvReac Itching Verified 05/11/24 20:30 Vicodin) Iodinated Contrast Media AdvReac Vomiting Verified 05/11/24 20:30 (contrast dye - iodinated) venom-honey bee (bee venom AdvReac Chest Verified 05/11/24 20:30 (honey bee)) tightness Surgical History History of appendectomy History of cholecystectomy Social History household members: none Smoking Status: Former smoker substance use type: does not use ROS ROS ED Constitutional Constitutional ED: Denies chills or fever(s) Eyes Eyes: Denies change in vision Gastrointestinal Gastrointestinal: Denies nausea or vomiting Musculoskeletal Musculoskeletal: Reports back pain and other Details: Left wrist and hand pain Integumentary Denies Abrasions or rash Neurologic Neurologic: Denies headache(s), paresthesias or weakness Psychiatric Psychiatric: Reports anxiety Hematologic/Lymphatic Hematologic/Lymphatic: Denies easy bleeding or easy bruising EXAM Physical Exam Const Vital Signs: 05/11/24 20:33 05/11/24 21:52 Temperature 96.8 F L Temperature Source Temporal Pulse Rate 77 Respiratory Rate 18 Respiratory Effort Normal Respiratory Depth Normal Respiratory Pattern Normal Blood Pressure 152/84 H Blood Pressure Mean 106 Pulse Ox 97 Oxygen Delivery Method Room Air Positive well nourished and well developed Constitutional Narrative: Crying General Appearance ED: well developed HEENT HEENT Narrative: No trismus atraumatic Nose: Negative for septum abnormal Eyes PERRL and EOMs intact bilaterally Neck General: Negative for tenderness Chest Wall inspection of chest normal and palpation of chest normal Resp normal respiratory effort and clear to auscultation bilaterally Cardio regular rhythm Rate: regular rate GI normal to inspection, nondistended, normoactive bowel sounds and non-tender Back/Spine Back/Spine Narrative: Surgical lumbar incision at the midline present. Mild diffuse tenderness of the lower lumbar spine. Thoracic Spine / Upper Back: Negative for thoracic spinal tenderness Extremity normal to inspection and full ROM Extremity Narrative: Patient is complaining of pain at her left wrist over the distal ulna/ulnar styloid as well as the left fifth metacarpal. On evaluation she is also noted to have pain diffusely over the left elbow. No joint effusions are appreciated. No obvious deformity. Range of motion is preserved but she does have pain with range of motion of the both the elbow and the wrist. No deformity of the fingers appreciated. No bony tenderness or deformity of the right upper extremity. Pelvis is stable. No rotational deformity of the lower extremities. No pain with range of motion of the bilateral hips. General Extremety ED: Negative for deformity General Extremity: Negative for deformity Neuro oriented x3, moves all extremities and no focal motor deficits Sensorium / Orientation: alert Motor Exam: strength 5/5 throughout Psych mental status grossly normal Mood & Affect: tearful Skin no rashes or lesions noted and no wounds MDM MDM MDM Narrative Medical decision making narrative: Patient is evaluated for traumatic injuries after she slipped down some steps. She not hit her head. She is no obvious deformity. IV is placed and patient is given dose of IV morphine as well as Zofran for symptom control. X-ray reviewed by myself as well as radiology of the lumbar spine, pelvis, left hand, wrist and elbow do not show any acute traumatic injury. As patient continues to have a lot of pain of the wrist will be given a Velcro splint and counseled the risk of an occult fracture. She is starting to have spasms in her back. She states she has had Flexeril in the past which is helpful for her. She will be given a dose of Flexeril as well as Toradol prior to discharge and prescription for Flexeril. Instructed to alternate ibuprofen and Tylenol for pain. Patient is given return precautions. Discharged home in stable condition. Radiography Diagnostic Testing: Clinical Impression(s) from Imaging Studies Lumbar Spine X-Ray 05/11/24 21:57 IMPRESSION: No fracture or subluxation. Electronically Signed: Kunal Rodriguez DO at 22:46 EDT , Pelvis X-Ray 05/11/24 21:58 IMPRESSION: No evidence of a pelvic fracture. Electronically Signed: Kunal Rodriguez DO at 22:50 EDT , Wrist X-Ray 05/11/24 21:58 IMPRESSION: No fracture or dislocation. Electronically Signed: Kunal Rodriguez DO at 22:49 EDT , Elbow X-Ray 05/11/24 22:24 IMPRESSION: No fracture or dislocation. Electronically Signed: Kunal Rodriguez DO at 22:43 EDT , Hand X-Ray 05/11/24 22:30 IMPRESSION: No fracture or dislocation. Electronically Signed: Kunal Rodriguez at 22:48 EDT , Discharge Plan Triage Chief Complaint: Fall ED Provider: Mattie Jeffrey Dx/Rx/DC Orders Clinical Impression: Fall down steps, Acute pain of left wrist, Left elbow pain, Low back pain Instructions: ED Back Pain (Acute or Chronic), ED Contusion, Upper Extremity, ED Fall Prevention Prescriptions: New cyclobenzaprine 10 mg tablet 10 mg PO TID PRN (Reason: Muscle Spasm) Qty: 20 0RF No Action rawbzyha-tdp-cgeo-FA-vit K-lut 1 EACH tablet 1 tab PO DAILY levetiracetam 750 MG tablet 1,500 mg PO TID fluticasone propionate [Flonase Allergy Relief] 50 mcg/actuation [place],Suspension 1 spray INTRANASAL DAILY Rx Instructions: administer into each nostril oxycodone-acetaminophen 5-325 mg tablet 1 tab PO Q6H PRN PRN (Reason: Pain) 3 Days Qty: 10 0RF lidocaine 5 % ointment 1 applic topical TID PRN (Reason: skin irritation) Qty: 50 1RF Primary Care Provider: Amandeep Loredo Referrals: Amandeep Loredo, DO [Primary Care Provider] - Activity Restrictions/Additional Instructions: Your x-rays today did not show any acute fractures. Alternate ibuprofen and Tylenol for pain. He prescribed Flexeril to help with the muscle spasms. I expect you will be more sore over the next few days. You have been given a splint for your wrist. Wear it as needed for pain. If you continue to have pains after week please follow-up with your primary care doctor for repeat x-ray to ensure there is not a more subtle occult fracture. Print Language: Moroccan
[2024-05-12] MEDS: Ketorolac 15 MG/ML Vial IV (00:02)
[2024-05-12] MEDS: cycloBENZAPRine HCl 10 MG Tablet PO (00:08)
[2024-05-12 00:13] VITALS: BP 134/75; PULSE 84; RESP 16; TEMP 36.6; O2SAT 100
== END 2024-05-12 00:14 | disposition home or self-care (01) ==
LOC: ED 23:28
PROVIDERS: Emergency Provider Emergency Medicine; PCP Family Medicine; Visit Provider Emergency Medicine
DX: M25.532 Pain in left wrist (principal); M25.522 Pain in left elbow; M54.50 Low back pain, unspecified; I25.2 Old myocardial infarction; G47.30 Sleep apnea, unspecified; Z87.891 Personal history of nicotine dependence; Z86.16 Personal history of COVID-19; W10.9XXA Fall (on) (from) unspecified stairs and steps, initial encounter
CPT/HCPCS: 72100; 72170; 73080; 73110; 73130; 96372; 96374; 96375; 99284; A4216; J2405

== ENCOUNTER 2024-06-29 09:19 | Emergency (ER) | payer MEDICARE, MEDICAID, SELFPAY ==
[2024-06-29 09:19] VITALS: BP 144/80; PULSE 90; RESP 24; TEMP 36.4; O2SAT 95
[2024-06-29] MEDS: Morphine 4 MG/ML Syringe IV (09:59)
[2024-06-29] MEDS: Ketorolac 15 MG/ML Vial IV (09:59)
[2024-06-29] MEDS: LORazepam 2 MG/ML Syringe 1 MG IV (09:59)
[2024-06-29 10:35] VITALS: BMI 26.5
[2024-06-29 10:40] LABS: Anion Gap 5 (5-15); BUN 10 mg/dL (7-18); BUN/Creat Ratio 18.2 RATIO (10-20); Calcium,Total 8.8 mg/dL (8.5-10.1); Chloride 112 mmol/L (98-107); Creatinine, Serum 0.55 mg/dL (0.55-1.02); EST Glomerular Filtration Rate 122 mL/min (>60); Est Glom Filt Rate - Afr Amer 147 mL/min (>60); Estimated Creatinine Clearance 131.95 ml/min; Glucose 100 mg/dL (74-106); Sodium Level 141 mmol/L (136-145)
[2024-06-29 10:46] LABS: Absolute Lymphocyte Count 2.29 X10^3/uL (0.83-4.51); Absolute Neutrophil Count 2.3 X10^3/uL (2.0-7.7); Basophil# 0.04 X10^3/uL; Basophil% 0.8 % (0-1); Eosinophil# 0.13 X10^3/uL; Eosinophils% 2.5 % (0-5); Hematocrit 42.6 % (37-47); Hemoglobin 14.1 g/dL (12.0-15.0); Lymphocyte # 2.29 X10^3/ul (0.83-4.51); Lymphocyte % 43.9 % (19-41); Mean Corp Hgb Conc 33.1 g/dL (32-36); Mean Corpuscular Hgb 31.2 pg (27.0-32.0); Mean Corpuscular Volume 94.2 fL (81-99); Mean Platelet Vol. 9.6 fl (6.2-12.0); Monocyte# 0.43 X10^3/uL; Monocyte% 8.2 % (0-10); NRBC Flagged by Analyzer 0 % (0-5); Neutrophil # 2.32 X10^3/uL (2.7-7.7); Neutrophil % 44.4 % (47-70); Platelet Count 262 K/mm3 (150-450); RBC Distribution Width CV 12.2 % (11.6-14.6); RBC Distribution Width SD 42.3 fl (35.1-43.9); Red Blood Count 4.52 M/mm3 (4.2-5.4); White Blood Count 5.2 K/mm3 (4.4-11.0)
[2024-06-29] MEDS: HYDROmorphone 1 MG/ML Syringe IV (12:22)
[2024-06-29] MEDS: Ondansetron 4 MG/2 ML Vial IV (12:22)
[2024-06-29 12:23] VITALS: PULSE 87; RESP 18; O2SAT 96
== END 2024-06-29 12:52 | disposition home or self-care (01) ==
PROVIDERS: Emergency Provider Emergency Medicine; PCP Family Medicine; Visit Provider Emergency Medicine
DX: M54.50 Low back pain, unspecified (principal); M62.831 Muscle spasm of calf; M62.838 Other muscle spasm; I25.2 Old myocardial infarction; G47.30 Sleep apnea, unspecified; Z87.891 Personal history of nicotine dependence; Z86.16 Personal history of COVID-19
CPT/HCPCS: 72100; 80048; 85025; 96374; 96375; 96376; 99282; A4216; J2405

== ENCOUNTER 2024-08-07 21:25 | Emergency (ER) | payer MEDICARE, MEDICAID, SELFPAY ==
[2024-08-07 21:26] VITALS: BP 138/112; PULSE 97; RESP 18; TEMP 36.1; O2SAT 97
--- NOTE | 2024-08-07 21:41 | EDS_ITS ---
HPI <LILIAN Alcocer - Last Filed: 08/07/24 21:58> History of Present Illness Chief Complaint: Lower Extremity Injury Narrative Narrative: Patient presenting today with pain to the right knee after her dog ran into the anterior aspect of her right knee this evening causing her to hyperextend at the knee. She did not fall to the ground, she reports pain with ambulating and bearing weight onto her right leg. She denies other injury. PFSH <LILIAN Alcocer - Last Filed: 08/07/24 21:58> [facility] Medical History NSTEMI (non-ST elevated myocardial infarction) Cardiac arrest COVID-19 Brain aneurysm Chronic pain Rheumatoid arthritis Kidney stones Kidney disease GERD (gastroesophageal reflux disease) Former smoker Sleep apnea Asthma Migraines Seizures Home Medications ?Medication ?Instructions ?Recorded ?Last Taken ?Type [id number] 8 mg-folic 400 1 tab PO DAILY supplement 03/21/19 07/26/21 History mcg-K 50 mcg-lutein 300 mcg tablet levetiracetam 750 mg tablet 1,500 mg PO TID seizures 12/04/19 07/26/21 History fluticasone propionate 50 1 spray intranasal DAILY 08/24/22 Unknown History mcg/actuation nasal spray,suspension (Flonase Allergy Relief) lidocaine 5 % topical ointment 1 applic topical TID PRN skin 11/17/22 Unknown Rx irritation #50 grams cyclobenzaprine 10 mg tablet 10 mg PO TID PRN Muscle Spasm #20 05/11/24 Unknown Rx TABLETS oxycodone-acetaminophen 5 mg-325 1 tab PO Q6H PRN PRN Pain 3 days 06/29/24 Unknown Rx mg tablet #10 TABLETS Allergy/AdvReac Type Severity Reaction Status Date / Time Penicillins Allergy Anaphylaxis Verified 08/07/24 21:26 propoxyphene napsylate (From Allergy Rash Verified 08/07/24 21:26 Darvocet-N 100) adhesive tape (plastic tape) AdvReac Other Verified 08/07/24 21:26 hydrocodone bitartrate (From AdvReac Itching Verified 08/07/24 21:26 Vicodin) Iodinated Contrast Media AdvReac Vomiting Verified 08/07/24 21:26 (contrast dye - iodinated) venom-honey bee (bee venom AdvReac Chest Verified 08/07/24 21:26 (honey bee)) tightness Surgical History Previous back surgery History of appendectomy History of cholecystectomy Social History household members: none Smoking Status: Former smoker substance use type: does not use ROS <LILIAN Alcocer - Last Filed: 08/07/24 21:58> ROS ED Constitutional Constitutional ED: Denies chills or fever(s) Cardiovascular Cardiovascular: Denies chest pain Respiratory/Chest Respiratory/Chest: Denies dyspnea Gastrointestinal Gastrointestinal: Denies abdominal pain, nausea or vomiting Musculoskeletal Musculoskeletal: Reports arthralgias Integumentary Denies Abrasions Neurologic Neurologic: Denies paresthesias EXAM <LILIAN Alcocer - Last Filed: 08/07/24 21:58> Physical Exam Const Vital Signs: 08/07/24 21:26 Temperature 97 F L Temperature Source Temporal Pulse Rate 97 Respiratory Rate 18 Blood Pressure 138/112 H Blood Pressure Mean 120 Pulse Ox 97 Oxygen Delivery Method Room Air Positive well nourished, well developed and no apparent distress General Appearance ED: well developed HEENT Reports normocephalic and head/scalp atraumatic Mouth ED: Yes moist mucous membranes normal Eyes PERRL and EOMs intact bilaterally Neck full ROM and supple Chest Wall inspection of chest normal Resp normal respiratory effort and clear to auscultation bilaterally Cardio regular rate and regular rhythm Back/Spine normal ROM and normal to inspection Extremity normal to inspection Extremity Narrative: Pain to the posterior aspect of the right knee, flexor and extensor mechanisms intact, painful range of motion to the right knee, no joint laxity, right DP pulse 2+, good cap refill, sensation intact. Neuro oriented x3, CN's II-XII intact bilaterally, moves all extremities, no focal motor deficits and no sensory deficits noted Sensorium / Orientation: awake and alert Psych mental status grossly normal and thought process normal Skin no rashes or lesions noted and no wounds <Jordin Chisholm MD - Last Filed: 08/07/24 22:06> Physical Exam Const Vital Signs: 08/07/24 21:26 Temperature 97 F L Temperature Source Temporal Pulse Rate 97 Respiratory Rate 18 Blood Pressure 138/112 H Blood Pressure Mean 120 Pulse Ox 97 Oxygen Delivery Method Room Air [facility] <LILIAN Alcocer - Last Filed: 08/07/24 21:58> [facility] Narrative Medical decision making narrative: Patient presenting today with pain in her right knee after her 70 pound boxer ran into the anterior aspect of her knee causing her to hyperextend at the knee. Her flexor and extensor mechanisms are intact. She has pain to the posterior aspect of her knee. No erythema or ecchymosis to the knee. No deformity or joint laxity. X-ray will be obtained and she was given oxycodone here for pain. She will be discharged home after she receives her x-ray. She will be referred to [facility] instructions discussed. She will be given an John wrap and crutches. She is to alternate Tylenol and ibuprofen as needed for her pain at home. <Jordin Chisholm MD - Last Filed: 08/07/24 22:06> [facility] Narrative Medical decision making narrative: Patient presenting today with pain in her right knee after her 70 pound boxer ran into the anterior aspect of her knee causing her to hyperextend at the knee. Her flexor and extensor mechanisms are intact. She has pain to the posterior aspect of her knee. No erythema or ecchymosis to the knee. No deformity or joint laxity. X-ray will be obtained and she was given oxycodone here for pain. She will be discharged home after she receives her x-ray. She will be referred to [facility] instructions discussed. She will be given an John wrap and crutches. She is to alternate Tylenol and ibuprofen as needed for her pain at home. Dr. Chisholm: I have personally performed a face to face assessment of the patient and have reviewed the WESTLEY Note. I performed a substantive portion of the visit including all aspects of the following. My garcia findings include: History is right knee pain when 70 pound box her dog ran into her leg after being frightened. Patient hyperextended her knee. Now complains of pain medially and laterally, radiating backwards. Exam is afebrile. Vital signs noted. GCS 15. ABCs intact. Diffuse tenderness to palpation right knee. Flexion and extension mechanism intact. Palpable dorsalis pedis pulse. Mild tenderness along lateral meniscal line, and posteriorly on biceps tendon, no palpable deficit. Medical Decision Making: Check x-rays. Analgesia. X-rays obtained and interpreted by myself independently show no evidence of acute fracture. At this point in time, patient signed out to oncoming physician to check x-ray read, and make disposition which I anticipate his discharge. Patient is in stable condition. Other additions or changes: [None] Discharge Plan Triage Chief Complaint: Lower Extremity Injury ED Midlevel Provider: Dianna Seo ED Provider: Jordin Chisholm Dx/Rx/DC Orders Clinical Impression: Contusion of knee, right, Hyperextension injury of right knee Instructions: Knee Pain Prescriptions: No Action txdzriso-ndh-nukl-FA-vit K-lut 1 EACH tablet 1 tab PO DAILY levetiracetam 750 MG tablet 1,500 mg PO TID fluticasone propionate [Flonase Allergy Relief] 50 mcg/actuation [place],Suspension 1 spray INTRANASAL DAILY Rx Instructions: administer into each nostril lidocaine 5 % ointment 1 applic topical TID PRN (Reason: skin irritation) Qty: 50 1RF cyclobenzaprine 10 mg tablet 10 mg PO TID PRN (Reason: Muscle Spasm) Qty: 20 0RF oxycodone-acetaminophen 5-325 mg tablet 1 tab PO Q6H PRN PRN (Reason: Pain) 3 Days Qty: 10 0RF Primary Care Provider: Amandeep Loredo Referrals: Amandeep Loredo DO [Primary Care Provider] - Augustine Luu DO [Med Staff - Active Staff] - 5-7 Days Activity Restrictions/Additional Instructions: Follow-up with orthopedics. Alternate Tylenol and ibuprofen as needed for your pain, ice, elevate. Print Language: [place]ran Disposition Disposition: Home, Self Care
[2024-08-07] MEDS: oxyCODONE 5 MG Tablet PO (21:46)
--- NOTE | 2024-08-07 21:50 | RAD_ITS ---
EXAM: XR RIGHT KNEE, 3 VIEWS CLINICAL INDICATION: pain TECHNIQUE: Three views of the right knee. COMPARISON: Left knee radiographs of 01/24/2024. FINDINGS: BONES/JOINTS: Unremarkable. No acute fracture. No subluxation. Normal alignment. Preservation of the joint space. No sclerotic or destructive changes observed. SOFT TISSUES: Minimal soft tissue swelling anterior to the infrapatellar tendon. No radiopaque foreign body. No suprapatellar knee effusion. RAD/Knee 3 Views IMPRESSION: Minimal soft tissue swelling. No acute fracture or dislocation. Electronically Signed: Delbert Henry MD at 22:11 EST ,
== END 2024-08-07 23:03 | disposition home or self-care (01) ==
PROVIDERS: Emergency Provider Emergency Medicine; PCP Family Medicine; Visit Provider Emergency Medicine
DX: S80.01XA Contusion of right knee, initial encounter (principal); S83.91XA Sprain of unspecified site of right knee, initial encounter; Z87.891 Personal history of nicotine dependence; X58.XXXA Exposure to other specified factors, initial encounter
CPT/HCPCS: 73562; 99283

== ENCOUNTER 2024-09-04 21:50 | Emergency (ER) | payer MEDICARE, MEDICAID, SELFPAY ==
[2024-09-04 21:51] VITALS: BP 136/117; PULSE 97; RESP 18; TEMP 36.4; O2SAT 100; BMI 27.1
--- NOTE | 2024-09-04 22:01 | EDS_ITS ---
HPI History of Present Illness Chief Complaint: Fall [facility] Medical History NSTEMI (non-ST elevated myocardial infarction) Cardiac arrest COVID-19 Brain aneurysm Chronic pain Rheumatoid arthritis Kidney stones Kidney disease GERD (gastroesophageal reflux disease) Former smoker Sleep apnea Asthma Migraines Seizures Home Medications ?Medication ?Instructions ?Recorded ?Last Taken ?Type vwbmjyyy-adzb-pzwq 8 mg-folic 400 1 tab PO DAILY supplement 03/21/19 07/26/21 History mcg-K 50 mcg-lutein 300 mcg tablet levetiracetam 750 mg tablet 1,500 mg PO TID seizures 12/04/19 07/26/21 History fluticasone propionate 50 1 spray intranasal DAILY 08/24/22 Unknown History mcg/actuation nasal spray,suspension (Flonase Allergy Relief) lidocaine 5 % topical ointment 1 applic topical TID PRN skin 11/17/22 Unknown Rx irritation #50 grams cyclobenzaprine 10 mg tablet 10 mg PO TID PRN Muscle Spasm #20 05/11/24 Unknown Rx TABLETS oxycodone-acetaminophen 5 mg-325 1 tab PO Q6H PRN PRN Pain 3 days 06/29/24 Unknown Rx mg tablet #10 TABLETS oxycodone-acetaminophen 5 mg-325 1 tab PO Q6H PRN pain 5 days #20 08/07/24 Unknown Rx mg tablet (Percocet) tabs gabapentin 400 mg capsule 800 mg PO DAILY 09/04/24 Unknown History levetiracetam 1,000 mg tablet 1,000 mg PO Q12H 09/04/24 Unknown History (Keppra) omeprazole 20 mg capsule,delayed 20 mg PO BID 09/04/24 Unknown History release Allergy/AdvReac Type Severity Reaction Status Date / Time Penicillins Allergy Anaphylaxis Verified 09/04/24 21:51 propoxyphene napsylate (From Allergy Rash Verified 09/04/24 21:51 Darvocet-N 100) adhesive tape (plastic tape) AdvReac Other Verified 09/04/24 21:51 hydrocodone bitartrate (From AdvReac Itching Verified 09/04/24 21:51 Vicodin) Iodinated Contrast Media AdvReac Vomiting Verified 09/04/24 21:51 (contrast dye - iodinated) venom-honey bee (bee venom AdvReac Chest Verified 09/04/24 21:51 (honey bee)) tightness Surgical History Previous back surgery History of appendectomy History of cholecystectomy Social History household members: none Smoking Status: Former smoker substance use type: does not use EXAM Physical Exam Const Vital Signs: 09/04/24 21:51 09/04/24 21:55 Temperature 97.6 F L Temperature Source Temporal Pulse Rate 97 Respiratory Rate 18 Respiratory Effort Normal Respiratory Depth Normal Respiratory Pattern Normal Blood Pressure 136/117 H Blood Pressure Mean 123 Pulse Ox 100 Oxygen Delivery Method Room Air Room Air MDM MDM MDM Narrative Medical decision making narrative: HISTORY OF PRESENT ILLNESS: 54 F here for fall. No she fell on ice proxy 1 hour ago. Notes pain in left hip and elbow. She further states she did not lose consciousness. States she was taking out the trash when she slipped and fell onto her left hip. She also notes injury to her left elbow. REVIEW OF SYSTEMS: Pertinent positives: Hip pain, elbow pain Pertinent negatives: Head trauma, loss of consciousness PHYSICAL EXAM: Nursing triage notes reviewed, Vital signs reviewed Primary Survey Airway: Intact Breathing: Bilateral breath sounds Circulation: Palpable bilateral femorals, Palpable bilateral radial, Palpable bilateral DP and Palpable bilateral PT Disability / Spine precautions GCS Score: Eye Openin Verbal Response: 5 Motor Response: 6 Secondary Survey Constitutional: Please see MDM Head: Atraumatic, Midface stable, NO jaw malocclusion, No Cephalohematoma, and No Lacerations noted Eye: Pupils equal round and reactive to light, Extraocular muscles intact and No periorbital ecchymosis or stepoff, no evidence of entrapment ENT: Oropharynx clear, no lacerations, no hemotympanum, no raccoon eyes or castillo sign Cervical spine / Neck: No cervical spine bony tenderness, crepitance, or stepoff deformity Trachea midline Lungs: Clear to auscultation, No asymmetric rise and No crepitus, no flail chest Cardiac: Regular rate and rhythm and No murmurs Abdomen: Soft, Nontender and No rebound Pelvis: Pelvis stable to compression, TTP over left greater trochanter : No evidence of genital injury Back: No midline bony tenderness to thoracic/lumbar/sacral spines Neuro: At baseline, intact strength and sensation in bilateral upper and lower extremities. 2+ patellar reflexes bilaterally. Extremities: NO gross Deformities, TTP over left hip. Full nonpainful intact range of motion in bilateral upper extremities and right lower extremity. Psych: Normal affect Nursing triage notes reviewed, Vital signs reviewed MEDICAL DECISION MAKING: Chief Complaint: Left hip pain, elbow pain External records reviewed: Reviewed prior imaging studies: Reviewed pelvic x-ray from 2023 which showed no acute pelvic fracture Factors affecting care: Hip pain, elbow pain Social determinants of health: none History obtained from others: none Consults: none MDM Narrative: Patient was initially hemodynamically stable, afebrile and nontoxic-appearing. Primary secondary trauma surveys concerning for the following: I considered the following differential diagnosis: Left hip fracture dislocation I do not suspect the patient had any bony injury of her wrist or elbow as she had full nonpainful range of motion in the joints of my initial exam Was concerned about hip bony abnormality so obtained an x-ray. I treat the patient initially with oral Tylenol ibuprofen ALL IMAGES (IF OBTAINED) HAVE BEEN PERSONALLY REVIEWED AND INTERPRETED BY MYSELF. X-ray left hip was read and reviewed person myself showed no evidence of obvious bony fracture or dislocation. Radiologist noted no acute fracture or dislocation. Patient ambulated without significant difficulty while emergency department. Tylenol ibuprofen instructions were given. The patient and/or family, caregivers express understanding. The patient and/or family, caregivers agrees with the plan. Shared decision making: I will have a discussion with the patient and or visitors regarding risk/benefits of further testing or admission. They will be made aware of of the risk/benefits inherent in this decision they will be given the opportunity to voice understanding. Total critical care time today provided was at least 0 minutes. This excludes separately billable procedures. Critical care time (if documented) is secondary to the patient having high probability of clinically significant/life threatening deterioration in the patient's condition which required my urgent intervention. Impression: 1. Fall 2. Acute left hip pain 3. Left hip contusion Dispo: Discharge home This note was generated with [employer] dictation software. It may contain incorrect words, spelling, and punctuation that were not noted in review of the chart prior to signing. Radiography Diagnostic Testing: Clinical Impression(s) from Imaging Studies Hip/Pelvis X-Ray 01/12/25 22:34 IMPRESSION: No acute radiographic abnormalities. Electronically Signed: Sumit Dotson MD at 23:36 EST , Discharge Plan Triage Chief Complaint: Fall ED Provider: Narciso Baron Dx/Rx/DC Orders Clinical Impression: Contusion of hip Instructions: Bone Contusion Prescriptions: No Action sfbzoeeb-lou-zefw-FA-vit K-lut 1 EACH tablet 1 tab PO DAILY levetiracetam 750 MG tablet 1,500 mg PO TID fluticasone propionate [Flonase Allergy Relief] 50 mcg/actuation [place],Suspension 1 spray INTRANASAL DAILY Rx Instructions: administer into each nostril lidocaine 5 % ointment 1 applic topical TID PRN (Reason: skin irritation) Qty: 50 1RF cyclobenzaprine 10 mg tablet 10 mg PO TID PRN (Reason: Muscle Spasm) Qty: 20 0RF oxycodone-acetaminophen [Percocet] 5-325 mg tablet 1 tab PO Q6H PRN (Reason: pain) 5 Days Qty: 20 0RF omeprazole 20 mg capsule,delayed release(DR/EC) 20 mg PO BID gabapentin 400 mg capsule 800 mg PO DAILY levetiracetam [Keppra] 1,000 mg tablet 1,000 mg PO Q12H oxycodone-acetaminophen 5-325 mg tablet 1 tab PO Q6H PRN PRN (Reason: Pain) 3 Days Qty: 10 0RF Primary Care Provider: Amandeep Loredo Referrals: Amandeep Loredo DO [Primary Care Provider] - Activity Restrictions/Additional Instructions: Thank you for trusting us with your care today! Please take Tylenol (2 pills, 650 mg), ibuprofen (2 pills, 400 mg) every 6 hours as needed for pain and fever control. Please return to the emergency department if your symptoms change or worsen. Please follow with your primary care physician for further outpatient evaluation and management. Print Language: Argentine Disposition Disposition: Home, Self Care
[2024-09-04] MEDS: Acetaminophen 325 MG Tablet 650 MG PO (22:20)
[2024-09-04] MEDS: Ibuprofen 200 MG Tablet 400 MG PO (22:21)
--- NOTE | 2024-09-04 22:34 | RAD_ITS ---
INDICATION: left hip pain EXAMINATION/TECHNIQUE: X-RAY - LEFT XR Hip Unilateral with Pelvis when performed; 2-3 Views COMPARISON: None. FINDINGS: No acute fracture or malalignment. No blastic or lytic lesions. No significant degenerative changes are seen. Posterior fusion hardware seen in the lower lumbar spine. The soft tissues are unremarkable. RAD/HIP, UNI W/ Pelvis 2-3 Views IMPRESSION: No acute radiographic abnormalities. Electronically Signed: Sumit Dotson MD at 23:36 EST ,
[2024-09-04 23:51] VITALS: BP 138/106; PULSE 78; RESP 18; O2SAT 95
[2024-09-05 00:10] VITALS: BP 138/106; PULSE 78; RESP 18; TEMP 36.5; O2SAT 95
== END 2024-09-05 00:11 | disposition home or self-care (01) ==
PROVIDERS: Emergency Provider Emergency Medicine; PCP Family Medicine; Visit Provider Emergency Medicine
DX: M25.552 Pain in left hip (principal); S70.02XA Contusion of left hip, initial encounter; I25.2 Old myocardial infarction; G47.30 Sleep apnea, unspecified; K21.9 Gastro-esophageal reflux disease without esophagitis; Z79.899 Other long term (current) drug therapy; Z87.891 Personal history of nicotine dependence; W00.9XXA Unspecified fall due to ice and snow, initial encounter
CPT/HCPCS: 73502; 99282

== ENCOUNTER 2024-10-20 19:50 | Emergency (ER) | payer MEDICARE, MEDICAID, SELFPAY ==
[2024-10-20 19:50] VITALS: BP 112/86; PULSE 96; RESP 26; TEMP 36.1; O2SAT 99
[2024-10-20 20:13] VITALS: BP 134/87; PULSE 92; RESP 18; TEMP 36.6; O2SAT 99; BMI 28.0
--- NOTE | 2024-10-20 20:41 | CT_ITS ---
PROCEDURE: ABDOMEN/PELVIS WITHOUT CONT REASON FOR EXAM: Back pain, history of stones TECHNIQUE: Abdomen and pelvis CT without intravenous contrast. Coronal and sagittal reformatted images COMPARISON: 12/01/2023 FINDINGS: The lung bases are clear. Status post cholecystectomy. Gastric pacemaker, L3 through S1 spinal hardware and intervertebral disc spacer L3-4 again noted with associated spray artifact. Status post cholecystectomy. Enlarged fatty liver again noted. No renal stones, hydronephrosis or perinephric stranding. The adrenal glands, pancreas and spleen appear within limits. No ureteral or bladder stone identified. The bladder appears within limits. No bowel dilation or free air. The appendix is not identified, no secondary signs. Diverticulosis without diverticulitis. No free fluid. No free air. Apparent hysterectomy. CT/Abdomen/Pelvis without Cont IMPRESSION: No renal stones, hydronephrosis or perinephric stranding. No evidence of urete ral or bladder stone. Status post cholecystectomy. Gastric pacemaker and spinal hardware again noted . Enlarged, fatty liver again noted. The appendix is not identified, no secondary signs. Diverticulosis without diverticulitis. One or more dose reduction techniques were used (e.g., Automated exposure contr ol, adjustment of the mA and/or kV according to patient size, use of iterative reconstruction technique). Reading Location: [id number]
--- NOTE | 2024-10-20 20:41 | EKG12_ITS ---
Test Reason : BACK Blood Pressure : */* mmHG Vent. Rate : 78 BPM Atrial Rate : 78 BPM P-R Int : 154 ms QRS Dur : 92 ms QT Int : 394 ms P-R-T Axes : 62 60 61 degrees QTcB Int : 449 ms Normal sinus rhythm Normal ECG When compared with ECG of 07-Oct-2023 19:45, No significant change was found Confirmed by Dawit Christensen ([id number]), manager editorial MAYRA SMALL ([id number]) on 10/21/2024 9:45:13 AM Referred By: Luis Angel Morales Confirmed By: Dawit Christensen
[2024-10-20 21:03] LABS: Bacteria 0 SEEN /hpf (None Seen); Mucous, Urine 0 SEEN /hpf (<or=2+)
[2024-10-20 21:07] VITALS: BP 118/66; PULSE 77; RESP 19; TEMP 36.7; O2SAT 98
[2024-10-20 21:22] LABS: Color, Urine Yellow (Yellow); Glucose, Dipstick Normal (Normal); Ketone-Dipstick Negative (Negative); Leukocyte Esterase-Dipstick 25 /ul (Negative); Nitrite-Dipstick Negative (Negative); Occult Blood-Urine 150 /ul (Negative); Protein-Dipstick 15 mg/dl (Negative); Specific Gravity, Urine 1.015 (1.002-1.030); Urine Bilirubin Dipstick Negative (Negative); Urine Clarity Clear (Clear); Urine Urobilinogen Normal (Normal)
[2024-10-20] MEDS: Ondansetron 4 MG/2 ML Vial IV (21:25)
--- NOTE | 2024-10-20 21:25 | EX.ED.DYSGE1 ---
HPI History of Present Illness Chief Complaint: Back Narrative Narrative: Patient is a 54-year-old female with past medical history of urolithiasis, asthma, LAURENCE, seizures, migraines who presented to the emergency department the chief complaint of back pain. Patient states that she has had previous back surgeries and notes that for the past few days she has had back pain that has been progressively worsening. Patient denies any traumas or injuries denies picking up anything heavy to exacerbate her symptoms. States that she is urinating normally for self and having normal bowel movements. States that this does feel like kidney stone she states that in the past she had to have her kidney stones broken up as they were large. Patient states that she tried to take one of her leftover narcotic pills but this did not help her pain. She states that since she was not getting relief she came here for the valuation management. Patient denies any history of IV drug use denies any alcohol use states that she does smoke cigarettes. [facility] Medical History NSTEMI (non-ST elevated myocardial infarction) Cardiac arrest COVID-19 Brain aneurysm Chronic pain Rheumatoid arthritis Kidney stones Kidney disease GERD (gastroesophageal reflux disease) Former smoker Sleep apnea Asthma Migraines Seizures Home Medications ?Medication ?Instructions ?Recorded ?Last Taken ?Type jpcgcgkf-rryo-gqhi 8 mg-folic 400 1 tab PO DAILY supplement 03/21/19 07/26/21 History mcg-K 50 mcg-lutein 300 mcg tablet levetiracetam 750 mg tablet 1,500 mg PO TID seizures 12/04/19 07/26/21 History fluticasone propionate 50 1 spray intranasal DAILY 08/24/22 Unknown History mcg/actuation nasal spray,suspension (Flonase Allergy Relief) lidocaine 5 % topical ointment 1 applic topical TID PRN skin 11/17/22 Unknown Rx irritation #50 grams cyclobenzaprine 10 mg tablet 10 mg PO TID PRN Muscle Spasm #20 05/11/24 Unknown Rx TABLETS oxycodone-acetaminophen 5 mg-325 1 tab PO Q6H PRN PRN Pain 3 days 06/29/24 Unknown Rx mg tablet #10 TABLETS oxycodone-acetaminophen 5 mg-325 1 tab PO Q6H PRN pain 5 days #20 08/07/24 Unknown Rx mg tablet (Percocet) tabs gabapentin 400 mg capsule 800 mg PO DAILY 09/04/24 Unknown History levetiracetam 1,000 mg tablet 1,000 mg PO Q12H 09/04/24 Unknown History (Keppra) omeprazole 20 mg capsule,delayed 20 mg PO BID 09/04/24 Unknown History release tizanidine 2 mg capsule 2 mg PO TID PRN muscle spasticity 10/21/24 Unknown Rx #14 caps Allergy/AdvReac Type Severity Reaction Status Date / Time Penicillins Allergy Anaphylaxis Verified 10/20/24 19:50 propoxyphene napsylate (From Allergy Rash Verified 10/20/24 19:50 Darvocet-N 100) adhesive tape (plastic tape) AdvReac Other Verified 10/20/24 19:50 hydrocodone bitartrate (From AdvReac Itching Verified 10/20/24 19:50 Vicodin) Iodinated Contrast Media AdvReac Vomiting Verified 10/20/24 19:50 (contrast dye - iodinated) venom-honey bee (bee venom AdvReac Chest Verified 10/20/24 19:50 (honey bee)) tightness Family History no significant family his Surgical History Previous back surgery History of appendectomy History of cholecystectomy Social History household members: none Smoking Status: Current every day smoker tobacco type: cigarettes substance use type: does not use ROS ROS ED ROS Narrative Constitutional: Denies fevers, chills, headaches, lightness, dizziness Eyes: Denies change in vision double vision blurry vision Cardiovascular: Denies chest pain Respiratory: Denies shortness of breath Abdomen: Denies abdominal pain nausea vomit diarrhea : Denies any urinary symptoms Neurological: Denies numbness, weakness, tingling Musculoskeletal: Complains of back pain as noted above Skin: Denies rashes or lesions EXAM Physical Exam Narrative Exam Narrative: General: Patient was lying in bed did not appear to be uncomfortable was tearful Head: Atraumatic, normocephalic Eyes: PERRL bilaterally, EOMI bilateral, no conjunctival injection noted Neck: Soft, supple, trachea midline Cardiovascular: Regular rate and rhythm no murmurs gallops rubs noted Respiratory: Clear to auscultation bilaterally no rales rhonchi or wheezes noted Abdomen: Soft, nondistended, nontender to palpation Musculoskeletal: No CVA tenderness on exam Extremities: +5/5 strength noted in the bilateral upper and lower extremities Neurological: Patient following commands knew that she was at [facility] year is 2024 sensation grossly intact no saddle anesthesia noted Skin: Warm, dry, intact no rashes or lesions noted Const Vital Signs: 10/20/24 19:50 10/20/24 20:13 10/20/24 21:07 Temperature 97 F L 98 F 98.1 F Temperature Source Temporal Oral Oral Pulse Rate 96 92 77 Respiratory Rate 26 H 18 19 H Blood Pressure 112/86 H 134/87 H 118/66 Blood Pressure Mean 94 102 83 Pulse Ox 99 99 98 Oxygen Delivery Method Room Air Room Air Room Air 10/20/24 23:00 Temperature Temperature Source Pulse Rate 76 Respiratory Rate 18 Blood Pressure 114/80 Blood Pressure Mean 91 Pulse Ox 99 Oxygen Delivery Method Room Air MDM MDM MDM Narrative Medical decision making narrative: Patient is a 54-year-old female who presented to the emerged part with chief complaint of back pain. On the differential diagnose includes but not limited to urolithiasis, UTI, pyelonephritis, AAA. Once workup is obtained reviewed she will be reevaluated. Patient got IV fluids, Zofran and morphine. Nursing staff notified me that they were unable to get a IV in place for her to have a CT abdomen pelvis obtained with contrast as they are only able to obtain an IV in her left thumb. Ultrasound-guided IV was placed by myself and the right upper arm. Patient was requesting more pain medication Toradol was ordered Patient's CBC was reviewed showed no evidence leukocytosis white blood count normal at 10.8, hemoglobin stable 15.1, platelet count was noted to be at 312. Patient sodium normal 136, potassium normal 3.9, creatinine 0.59. Patient AST and ALT are 29 respectively, alk phosphatase was noted be 136. Patient lipase normal at 28, urinalysis showed 150 occult blood no concern for infection. When patient went down for CT ab pelvis with IV contrast after I placed the ultrasound-guided IV CT scan during injection blue the IV therefore she had a CT abdomen pelvis without contrast. I did review a CTA of her chest abdomen and pelvis from 08/24/2022 and she had a normal aorta at that point time therefore of low suspicion for any abnormalities at this point time from an aorta standpoint. Patient CT ab pelvis without IV contrast was reviewed showed no renal stone hydronephrosis or perinephric stranding no evidence of ureteral bladder stone. Status post cholecystectomy gastric pacemaker and spinal hardware noted. Enlarged fatty liver noted again. The appendix is not identified no secondary signs of infection. Diverticulosis without diverticulitis. I discussed the results with the patient and notified her that since she had blood in her urine there is a chance that she passed the stone while she urinated here in the emergency department. Patient states that she is still having pain we will give her dose of pain medication and muscle relaxer before she leaves. She states that her is picking her up. Advised her that we will try multimodal pain therapy including Lidoderm patches however states that her insurance does not cover these and she has some already at home that she bought off of [employer]. She was advised to rotate Tylenol and ibuprofen [id number] when she does that she can take something every 3 hours. She will be given prescription for muscle relaxer. She was advised to follow-up with her primary care physician outpatient setting return for worsening symptoms or concerns. She is agreeable with this plan all question concerns answered she was discharged home in stable condition. Lab Data Labs: Laboratory Results - last 24 hr 10/20/24 10/20/24 20:35 20:56 WBC 10.8 RBC 4.89 Hgb 15.1 H Hct 45.4 MCV 92.8 MCH 30.9 MCHC 33.3 RDW Std Deviation 43.4 RDW Coeff of Bere 12.8 Plt Count 312 MPV 9.8 Immature Gran % (Auto) 0.400 Neut % (Auto) 61.9 Lymph % (Auto) 29.6 Sunflower % (Auto) 6.1 Eos % (Auto) 1.4 Baso % (Auto) 0.6 Absolute Neuts (auto) 6.7 Absolute Lymphs (auto) 3.21 Nucleated RBC % 0 Sodium 136 Potassium 3.9 Chloride Direct 104 Carbon Dioxide 21.1 L Anion Gap 11 BUN 12 Creatinine 0.59 L Estim Creat Clear Calc 126.27 Est GFR (MDRD) Non-Af 106 BUN/Creatinine Ratio 20.7 H Glucose 93 Calcium 9.0 Total Bilirubin 0.17 AST 20 ALT 9 Alkaline Phosphatase 136 H Total Protein 7.0 Albumin 4.0 Globulin 3.0 Albumin/Globulin Ratio 1.3 Lipase 28 Urine Color Yellow Urine Clarity Clear Urine pH 6.0 Ur Specific [place] 1.015 Urine Protein 15 H Urine Glucose (UA) Normal Urine Ketones Negative Urine Occult Blood 150 H Urine Nitrite Negative Urine Bilirubin Negative Urine Urobilinogen Normal Ur Leukocyte Esterase 25 H Urine RBC 0-5 SEEN Urine WBC 5-10 SEEN Ur Squamous Epith Cells 0-5 SEEN Urine Bacteria 0 SEEN Urine Mucus 0 SEEN Radiography Diagnostic Testing: Clinical Impression(s) from Imaging Studies Abdomen/Pelvis CT 10/20/24 20:41 IMPRESSION: No renal stones, hydronephrosis or perinephric stranding. No evidence of ureteral or bladder stone. Status post cholecystectomy. Gastric pacemaker and spinal hardware again noted. Enlarged, fatty liver again noted. The appendix is not identified, no secondary signs. Diverticulosis without diverticulitis. One or more dose reduction techniques were used (e.g., Automated exposure control, adjustment of the mA and/or kV according to patient size, use of iterative reconstruction technique). Reading Location: [facility] Discharge Plan Triage Chief Complaint: Back ED Provider: Luis Angel Morales Dx/Rx/DC Orders Clinical Impression: Back pain Prescriptions: New tizanidine 2 mg capsule 2 mg PO TID PRN (Reason: muscle spasticity) Qty: 14 0RF No Action kyieszfw-ovi-jwxm-FA-vit K-lut 1 EACH tablet 1 tab PO DAILY levetiracetam 750 MG tablet 1,500 mg PO TID fluticasone propionate [Flonase Allergy Relief] 50 mcg/actuation [place],Suspension 1 spray INTRANASAL DAILY Rx Instructions: administer into each nostril lidocaine 5 % ointment 1 applic topical TID PRN (Reason: skin irritation) Qty: 50 1RF cyclobenzaprine 10 mg tablet 10 mg PO TID PRN (Reason: Muscle Spasm) Qty: 20 0RF oxycodone-acetaminophen [Percocet] 5-325 mg tablet 1 tab PO Q6H PRN (Reason: pain) 5 Days Qty: 20 0RF omeprazole 20 mg capsule,delayed release(DR/EC) 20 mg PO BID gabapentin 400 mg capsule 800 mg PO DAILY levetiracetam [Keppra] 1,000 mg tablet 1,000 mg PO Q12H oxycodone-acetaminophen 5-325 mg tablet 1 tab PO Q6H PRN PRN (Reason: Pain) 3 Days Qty: 10 0RF Primary Care Provider: Amandeep Loredo Referrals: Amandeep Loredo DO [Primary Care Provider] - Activity Restrictions/Additional Instructions: Follow-up with your doctor in outpatient setting. Return with any other concerns or worsening symptoms. Rotate Tylenol and ibuprofen [id number] when you do this you can take something every 3 hours. Max dose of Tylenol is 4000 mg max dose of ibuprofen is 3200 mg. Use the muscle relaxer as prescribed do not operate anything under the influence of this this will make you sleepy. You also need to use your Lidoderm patches that you have at home. Your CT scan here today did not show any acute findings. Your blood work was largely normal. Print Language: Marshallese Disposition Disposition: Home, Self Care
[2024-10-20] MEDS: 0.9% Normal Saline (1000mL) 1,000 ML 999 ML IV (21:26)
[2024-10-20 21:28] LABS: Absolute Lymphocyte Count 3.21 X10^3/uL (0.83-4.51); Absolute Neutrophil Count 6.7 X10^3/uL (2.0-7.7); Basophil# 0.06 X10^3/uL; Basophil% 0.6 % (0-1); Eosinophil# 0.15 X10^3/uL; Eosinophils% 1.4 % (0-5); Hematocrit 45.4 % (37-47); Hemoglobin 15.1 g/dL (12.0-15.0); Lymphocyte # 3.21 X10^3/ul (0.83-4.51); Lymphocyte % 29.6 % (19-41); Mean Corp Hgb Conc 33.3 g/dL (32-36); Mean Corpuscular Hgb 30.9 pg (27.0-32.0); Mean Corpuscular Volume 92.8 fL (81-99); Mean Platelet Vol. 9.8 fl (6.2-12.0); Monocyte# 0.66 X10^3/uL; Monocyte% 6.1 % (0-10); NRBC Flagged by Analyzer 0 % (0-5); Neutrophil # 6.71 X10^3/uL (2.7-7.7); Neutrophil % 61.9 % (47-70); Platelet Count 312 K/mm3 (150-450); RBC Distribution Width CV 12.8 % (11.6-14.6); RBC Distribution Width SD 43.4 fl (35.1-43.9); Red Blood Count 4.89 M/mm3 (4.2-5.4); White Blood Count 10.8 K/mm3 (4.4-11.0)
[2024-10-20] MEDS: Morphine 4 MG/ML Syringe IV (21:29)
[2024-10-20 21:34] LABS: Lipase 28 U/L (13-75)
[2024-10-20 21:36] LABS: ALB/GLOB Ratio 1.3 RATIO (0.9-2.4); AST(SGOT) 20 U/L (<=31); Alanine Aminotransfer ALT/SGPT 9 U/L (<=34); Alkaline Phosphatase 136 U/L (35-104); Anion Gap 11 (5-15); BUN 12 mg/dL (4-19); BUN/Creat Ratio 20.7 RATIO (10-20); Carbon Dioxide 21.1 mmol/L (22.0-29.0); Chloride 104 mmol/L (96-108); Creatinine, Serum 0.59 mg/dL (0.70-1.20); EST Glomerular Filtration Rate 106 (>60); Estimated Creatinine Clearance 126.27 ml/min; Glucose 93 mg/dL (70-99); Potassium 3.9 mmol/L (3.3-5.1); Sodium Level 136 mmol/L (133-145); Total Bilirubin 0.17 mg/dL (0.00-1.30)
[2024-10-20 22:03] LABS: Squamous Epithelial Cells - UA 0-5 SEEN /hpf (5-10); White Blood Cells 5-10 SEEN /hpf (0-5)
[2024-10-20 22:04] LABS: Red Blood Cells-Urine 0-5 SEEN /hpf (0-5)
--- NOTE | 2024-10-20 22:55 | ED.RN ---
CT called stating that the ultrasounded IV placed by Dr Morales infiltrated when they went to do the CT. per Dr Morales change order to non-contrast CT.
[2024-10-20 23:00] VITALS: BP 114/80; PULSE 76; RESP 18; O2SAT 99
[2024-10-20] MEDS: Ketorolac 15 MG/ML Vial IV (23:00)
[2024-10-21] MEDS: Ondansetron 4 MG/2 ML Vial IV (00:30)
[2024-10-21] MEDS: Morphine 4 MG/ML Syringe IV (00:30)
[2024-10-21] MEDS: diazePAM 2 MG Tablet PO (00:34)
[2024-10-21 00:35] VITALS: BP 155/79; PULSE 69; RESP 18; TEMP 36.7; O2SAT 99
== END 2024-10-21 00:43 | disposition home or self-care (01) ==
PROVIDERS: Emergency Provider Emergency Medicine; PCP Family Medicine; Referring Provider Emergency Medicine; Visit Provider Emergency Medicine
DX: M54.9 Dorsalgia, unspecified (principal); F17.210 Nicotine dependence, cigarettes, uncomplicated; G47.33 Obstructive sleep apnea (adult) (pediatric); I25.2 Old myocardial infarction; Z86.16 Personal history of COVID-19; Z79.899 Other long term (current) drug therapy
CPT/HCPCS: 74176; 80053; 81001; 83690; 85025; 93005; 96361; 96374; 96375; 96376; 99283; A4216; J2405

== ENCOUNTER 2025-01-05 16:57 | Emergency (ER) | payer MEDICARE, MEDICAID, SELFPAY ==
[2025-01-05 16:57] VITALS: BP 150/128; PULSE 111; RESP 22; TEMP 36.1; O2SAT 99
--- NOTE | 2025-01-05 17:15 | RAD_ITS ---
PROCEDURE: WRIST MIN 3 VIEWS, 01/05/2025 REASON FOR EXAM: FALL TECHNIQUE: AP, lateral, and oblique views of the LEFT wrist were obtained COMPARISON: 05/11/2024 FINDINGS: AP view is slightly oblique in positioning. Fracture/dislocation: None visible. Joint space(s): Relatively preserved. Soft tissues: Unremarkable. Foreign bodies: None visible. Bone mineralization: Suspect demineralization. Other: None. RAD/Wrist min 3 Views IMPRESSION: Suspected demineralization without visible acute displaced fracture. Reading Location: [id number]
--- NOTE | 2025-01-05 17:15 | RAD_ITS ---
PROCEDURE: HIP, UNI W/ PELVIS 2-3 VIEWS, 01/05/2025 REASON FOR EXAM: FALL TECHNIQUE: An AP view of the pelvis and an AP view of the LEFT hip were obtained COMPARISON: None FINDINGS: Fracture/dislocation: None visible. Joint space(s): Relatively preserved. Soft tissues: Unremarkable. Foreign bodies: None visible. Bone mineralization: Suspect demineralization. Other: Similar electronic device on the LEFT. Partially imaged lumbar spinal fusion and laminectomy. Similar presumed pelvic phleboliths.. RAD/HIP, UNI W/ Pelvis 2-3 Views IMPRESSION: 1. Suspected demineralization without visible acute displaced fracture. If the re is persistent concern or if the patient is unable to bear weight, recommend CT. 2. Additional description as above. Reading Location: [id number]
--- NOTE | 2025-01-05 17:57 | EDS_ITS ---
HPI HPI - Fall History of Present Illness Chief Complaint: Fall Informant: patient Narrative Narrative: 54-year-old female presenting to the emergency room with chief complaint of fall. Patient states she was mowing her lawn when she was walking backwards with the mower stepped in a gopher hole and fell down. She states she tried to catch herself with her left wrist and notes pain over the distal ulna/wrist. She also states that she landed on her buttock and has pain in the left sacral region left lateral hip and left inguinal region. She states when she walks she can feel her hip popping. She denies any head injury. X-rays of the hip pelvis and wrist were obtained through nursing triage. [facility] Medical History NSTEMI (non-ST elevated myocardial infarction) Cardiac arrest COVID-19 Brain aneurysm Chronic pain Rheumatoid arthritis Kidney stones Kidney disease GERD (gastroesophageal reflux disease) Former smoker Sleep apnea Asthma Migraines Seizures Home Medications ?Medication ?Instructions ?Recorded ?Last Taken ?Type waksvbra-xfqw-iwzs 8 mg-folic 400 1 tab PO DAILY suppl ement 03/21/19 07/26/21 History mcg-K 50 mcg-lutein 300 mcg tablet levetiracetam 750 mg tablet 1,500 mg PO TID seizures 0 12/04/19 07/26/21 History fluticasone propionate 50 1 spray intranasal DAILY 09/15 Unknown History mcg/actuation nasal spray,suspension (Flonase Allergy Relief) lidocaine 5 % topical ointment 1 applic topical TID NJ N skin 11/17/22 Unknown Rx irritation #50 grams cyclobenzaprine 10 mg tablet 10 mg PO TID PRN Muscle S pasm #20 05/11/24 Unknown Rx TABLETS oxycodone-acetaminophen 5 mg-325 1 tab PO Q6H PRN PRN Pain 3 days 06/29/24 Unknown Rx mg tablet #10 TABLETS oxycodone-acetaminophen 5 mg-325 1 tab PO Q6H PRN pain 5 days #20 08/07/24 Unknown Rx mg tablet (Percocet) tabs gabapentin 400 mg capsule 800 mg PO DAILY 09/04/24 Unk nown History levetiracetam 1,000 mg tablet 1,000 mg PO Q12H 5 Unknown History (Keppra) omeprazole 20 mg capsule,delayed 20 mg PO BID 09/04/24 Unknown History release tizanidine 2 mg capsule 2 mg PO TID PRN muscle spast icity 10/21/24 Unknown Rx #14 caps oxycodone-acetaminophen 5 mg-325 1 tab PO Q6H PRN PRN Pain 3 days 01/05/25 Unknown Rx mg tablet #12 TABLETS Allergy/AdvReac Type Severity Reaction Status Date / Time Penicillins Allergy Anaphylaxis Verified 01/05/25 17:01 propoxyphene napsylate (From Allergy Rash Verified 01/05/25 17:01 Darvocet-N 100) adhesive tape (plastic tape) AdvReac Other Verified 01/05/25 17:01 hydrocodone bitartrate (From AdvReac Itching Verified 01/05/25 17:01 Vicodin) Iodinated Contrast Media AdvReac Vomiting Verified 01/05/25 17:01 (contrast dye - iodinated) venom-honey bee (bee venom AdvReac Chest Verified 01/05/25 17:01 (honey bee)) tightness Surgical History Previous back surgery History of appendectomy History of cholecystectomy Social History household members: none Smoking Status: Current every day smoker tobacco type: cigarettes substance use type: does not use ROS ROS ED Constitutional Constitutional ED: Denies chills, fever(s) or weight loss Eyes Eyes: Denies change in vision or diplopia ENT ENT ED: Denies ear pain, rhinorrhea or sore throat Cardiovascular Cardiovascular: Denies chest pain, orthopnea, palpitations or racing heartbeat Respiratory/Chest Respiratory/Chest: Denies cough, dyspnea or orthopnea Gastrointestinal Gastrointestinal: Denies abdominal pain, diarrhea, nausea or vomiting Genitourinary Genitourinary ED: Denies dysuria, hematuria or urinary frequency Musculoskeletal Musculoskeletal: Reports other Details: See history of present ; Denies arthralgias or myalgias Integumentary Denies abscess or rash Neurologic Neurologic: Denies headache(s) or weakness Psychiatric Psychiatric: Denies anxiety, depression, suicidal ideation or suicidal thoughts Endocrine Endocrinology: Denies polydipsia, polyphagia or polyuria Allergic/Immunologic Allergic/Immunologic ED: Denies mouth swelling, tongue swelling or urticaria EXAM Physical Exam Narrative Exam Narrative: Patient is crying. Const Vital Signs: 01/05/25 16:57 01/05/25 18:20 01/05/25 18:20 Temperature 96.9 F L Temperature Source Temporal Pulse Rate 111 H 99 Respiratory Rate 22 H 18 Respiratory Effort Normal Respiratory Depth Normal Respiratory Pattern Normal Blood Pressure 150/128 H 110/73 Blood Pressure Mean 135 85 Pulse Ox 99 99 Oxygen Delivery Method Room Air Room Air Positive well nourished and well developed General Appearance ED: well developed HEENT Reports normocephalic, head/scalp atraumatic and moist mucous membranes Eyes PERRL and EOMs intact bilaterally Neck no lymphadenopathy, supple and no JVD Resp normal respiratory effort and clear to auscultation bilaterally Cardio regular rate, regular rhythm and no murmurs GI normal to inspection, nondistended, normoactive bowel sounds and non-tender Palpation: soft Back/Spine no CVA tenderness and normal ROM Extremity Extremity Narrative: Patient is able to go from sitting on the side of the bed to laying back and swing her left leg up onto the bed. She has tenderness over the greater trochanter. Tenderness in the left buttock region. She has tenderness over the distal ulna and dorsum of the hand. I do not appreciate a deformity. Neurovascularly she appears intact of both the upper and the lower extremity. General Extremety ED: Negative for edema General Extremity: Negative for edema Neuro oriented x3 and CN's II-XII intact bilaterally Sensorium / Orientation: alert Motor Exam: strength 5/5 throughout Psych mental status grossly normal Mood & Affect: Negative for depressed or tearful Skin no rashes or lesions noted and no wounds MDM MDM MDM Narrative Medical decision making narrative: Differential diagnosis includes but not limited to fracture ligamentous injury tendon injury traumatic bursitis contusion My independent interpretation of the left hip with pelvis is no acute fracture. My independent interpretation of the plain films of the left wrist is no acute fracture. Patient received a dose of oxycodone here in the department while we waited on results. And we will place her in a Velcro wrist splint. Would recommend ice rest follow-up with PCP or orthopedics (has seen [facility]) 10 to 14 days if not improved. History & Record Review Discussion w/independent historian: Patient Radiography Diagnostic Testing: Clinical Impression(s) from Imaging Studies Hip/Pelvis X-Ray 01/05/25 17:15 IMPRESSION: 1. Suspected demineralization without visible acute displaced fracture. If there is persistent concern or if the patient is unable to bear weight, recommend CT. 2. Additional description as above. Reading Location: [facility] Wrist X-Ray 01/05/25 17:15 IMPRESSION: Suspected demineralization without visible acute displaced fracture. Reading Location: [facility] Discharge Plan Triage Chief Complaint: Fall ED Provider: Franki Flynn Dx/Rx/DC Orders Clinical Impression: Fall, Contusion of hip, left, Left wrist sprain Instructions: Understanding a Wrist Sprain, ED Hip Contusion Prescriptions: New oxycodone-acetaminophen 5-325 mg tablet 1 tab PO Q6H PRN PRN (Reason: Pain) 3 Days Qty: 12 0RF No Action zpvqkwtq-epn-vhrv-FA-vit K-lut 1 EACH tablet 1 tab PO DAILY levetiracetam 750 MG tablet 1,500 mg PO TID fluticasone propionate [Flonase Allergy Relief] 50 mcg/actuation [place],S uspension 1 spray INTRANASAL DAILY Rx Instructions: administer into each nostril lidocaine 5 % ointment 1 applic topical TID PRN (Reason: skin irritation) Qty: 50 1RF cyclobenzaprine 10 mg tablet 10 mg PO TID PRN (Reason: Muscle Spasm) Qty: 20 0RF oxycodone-acetaminophen [Percocet] 5-325 mg tablet 1 tab PO Q6H PRN (Reason: pain) 5 Days Qty: 20 0RF omeprazole 20 mg capsule,delayed release(DR/EC) 20 mg PO BID gabapentin 400 mg capsule 800 mg PO DAILY levetiracetam [Keppra] 1,000 mg tablet 1,000 mg PO Q12H tizanidine 2 mg capsule 2 mg PO TID PRN (Reason: muscle spasticity) Qty: 14 0RF oxycodone-acetaminophen 5-325 mg tablet 1 tab PO Q6H PRN PRN (Reason: Pain) 3 Days Qty: 10 0RF Primary Care Provider: Amandeep Loredo Referrals: Amandeep Loredo DO [Primary Care Provider] - Stephan Triplett MD [Med Staff - Active Staff] - 10-14 Days if not better (for orthopedics) Print Language: Chinese Disposition Disposition: Home, Self Care
[2025-01-05] MEDS: oxyCODONE 5 MG Tablet PO (18:16)
[2025-01-05 18:20] VITALS: BP 110/73; PULSE 99; RESP 18; O2SAT 99
[2025-01-05 19:48] VITALS: BMI 28.9
[2025-01-05 19:49] VITALS: PULSE 88; RESP 18; O2SAT 100
== END 2025-01-05 19:49 | disposition home or self-care (01) ==
PROVIDERS: Emergency Provider Emergency Medicine; PCP Family Medicine; Visit Provider Emergency Medicine
DX: S70.02XA Contusion of left hip, initial encounter (principal); S63.502A Unspecified sprain of left wrist, initial encounter; F17.210 Nicotine dependence, cigarettes, uncomplicated; I25.2 Old myocardial infarction; G47.30 Sleep apnea, unspecified; W19.XXXA Unspecified fall, initial encounter; Z86.16 Personal history of COVID-19
CPT/HCPCS: 73110; 73502; 99284

== ENCOUNTER 2025-03-14 13:58 | Emergency (ER) | payer MEDICARE, MEDICAID, SELFPAY ==
[2025-03-14 13:58] VITALS: BP 160/88; PULSE 93; RESP 20; TEMP 36.4; O2SAT 98; BMI 26.9
--- NOTE | 2025-03-14 14:33 | RAD_ITS ---
EXAM: XR Thoracic Spine, 2 Views CLINICAL INDICATION: SUDDEN PAIN CATCHING GRANDSON TECHNIQUE: Frontal and lateral views of the thoracic spine. COMPARISON: No relevant prior studies available. 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 Normal alignment. No acute fracture. DISC SPACES: See above. SOFT TISSUES: Unremarkable. RAD/Thoracic Spine 2 Views IMPRESSION: 1. No acute fracture. 2. Degenerative changes thoracic spine as described. Reading Location: [facility]
--- NOTE | 2025-03-14 14:35 | ED.VIS.BACK ---
HPI History of Present Illness Chief Complaint: Back Informant: patient Onset/Context/Timing Onset: Today and Hours Context: Sudden Onset Injury: - (Catching her 4-year-old grandson as he was falling off a slide. Sudden onset of thoracic back pain) Timing: Continuous Quality: Sharp Location: Thoracic Current Severity: 7/10 Maximum Severity: 7/10 Worsened by: improves with Movement Relieved by: Nothing Associated Symptoms Associated Symptoms: Negative for Numbness, Tingling, Radiation to Right Leg, Radiation to Left Leg, Fever, Abdominal Pain, Dysuria, Unable to Ambulate, Unable to Transfer, Urinary Retention, Urinary Incontinence, Constipation or Fecal Incontinence Narrative Narrative: 55-year-old female history of prior [place], brain aneurysm, and A-fib not on blood thinners. Has had both a prior cervical fusion and lumbar fusion. 91. Her grandson was playing on a slide. He started to fall off a slide and she caught him as she was catching him she felt a pop and immediate pain in her thoracic spine. She did not fall. She denies any numbness or weakness to her upper or lower extremities. She states it is a burning pain going down her spine. She denies any radiation into her legs. No incontinence. Prior similar symptoms: No Recent Illness/Hospitalization: No [facility] Medical History NSTEMI (non-ST elevated myocardial infarction) Cardiac arrest COVID-19 Brain aneurysm Chronic pain Rheumatoid arthritis Kidney stones Kidney disease GERD (gastroesophageal reflux disease) Former smoker Sleep apnea Asthma Migraines Seizures Home Medications ?Medication ?Instructions ?Recorded ?Last Taken ?Type [id number] 8 mg-folic 400 1 tab PO DAILY supplement 03/21/19 07/26/21 History mcg-K 50 mcg-lutein 300 mcg tablet levetiracetam 750 mg tablet 1,500 mg PO TID seizures 12/04/19 07/26/21 History fluticasone propionate 50 1 spray intranasal DAILY 08/24/22 Unknown History mcg/actuation nasal spray,suspension (Flonase Allergy Relief) lidocaine 5 % topical ointment 1 applic topical TID PRN skin 11/17/22 Unknown Rx irritation #50 grams cyclobenzaprine 10 mg tablet 10 mg PO TID PRN Muscle Spasm #20 05/11/24 Unknown Rx TABLETS oxycodone-acetaminophen 5 mg-325 1 tab PO Q6H PRN PRN Pain 3 days 06/29/24 Unknown Rx mg tablet #10 TABLETS oxycodone-acetaminophen 5 mg-325 1 tab PO Q6H PRN pain 5 days #20 08/07/24 Unknown Rx mg tablet (Percocet) tabs gabapentin 400 mg capsule 800 mg PO DAILY 09/04/24 Unknown History levetiracetam 1,000 mg tablet 1,000 mg PO Q12H 09/04/24 Unknown History (Keppra) omeprazole 20 mg capsule,delayed 20 mg PO BID 09/04/24 Unknown History release tizanidine 2 mg capsule 2 mg PO TID PRN muscle spasticity 10/21/24 Unknown Rx #14 caps oxycodone-acetaminophen 5 mg-325 1 tab PO Q6H PRN PRN Pain 3 days 01/05/25 Unknown Rx mg tablet #12 TABLETS metaxalone 800 mg tablet 800 mg PO TID 7 days #21 tabs 03/14/25 Unknown Rx oxycodone-acetaminophen 5 mg-325 1 tab PO Q6H PRN pain 4 days #12 03/14/25 Unknown Rx mg tablet (Percocet) tabs Allergy/AdvReac Type Severity Reaction Status Date / Time Penicillins Allergy Anaphylaxis Verified 03/14/25 14:01 propoxyphene napsylate (From Allergy Rash Verified 03/14/25 14:01 Darvocet-N 100) adhesive tape (plastic tape) AdvReac Other Verified 03/14/25 14:01 hydrocodone bitartrate (From AdvReac Itching Verified 03/14/25 14:01 Vicodin) Iodinated Contrast Media AdvReac Vomiting Verified 03/14/25 14:01 (contrast dye - iodinated) venom-honey bee (bee venom AdvReac Chest Verified 03/14/25 14:01 (honey bee)) tightness Surgical History Previous back surgery History of appendectomy History of cholecystectomy Social History household members: none Smoking Status: Current every day smoker tobacco type: cigarettes substance use type: does not use ROS ROS ED ROS Narrative Denies recent illness. Back pain episode today. Constitutional Constitutional ED: Denies chills or fever(s) Eyes Eyes: Denies blurry vision ENT ENT ED: Denies ear pain, rhinorrhea or sore throat Cardiovascular Cardiovascular: Denies chest pain Respiratory/Chest Respiratory/Chest: Denies dyspnea Gastrointestinal Gastrointestinal: Denies abdominal pain Genitourinary Genitourinary ED: Denies dysuria or hematuria Musculoskeletal Musculoskeletal: Reports back pain; Denies arthralgias or myalgias Integumentary Denies abscess or Abrasions Neurologic Neurologic: Denies headache(s) Psychiatric Psychiatric: Denies anxiety Endocrine Endocrinology: Denies cold intolerance Hematologic/Lymphatic Hematologic/Lymphatic: Denies easy bleeding, easy bruising or lymphadenopathy Allergic/Immunologic Allergic/Immunologic ED: Denies mouth swelling, tongue swelling or urticaria EXAM Physical Exam Narrative Exam Narrative: 55-year-old female sitting upright in bed complaining of mid back pain.. Vital signs are stable afebrile. H EENT exam pupils round react light. Extra motions are intact. No trauma. Neck nontender. Trachea midline. Lungs clear to auscultation bilaterally. Heart regular rhythm no murmur. Rate about 90. Chest wall ribs nontender. Abdomen soft nontender. Moving all 4 extremities. 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 Normal dorsi plantarflexion. Normal sensation. Normal range of motion. No cauda equina. No saddle anesthesia. Negative straight leg raise. Back she has pain over her mid thoracic region and parathoracic soft tissue. Cervical and lumbar spine are completely nontender. There is no ecchymosis or bruising. No redness or warmth. Neurologically she is awake alert. Answering questions following commands. Const Vital Signs: 03/14/25 13:58 Temperature 97.5 F L Temperature Source Oral Pulse Rate 93 Respiratory Rate 20 H Blood Pressure 160/88 H Blood Pressure Mean 112 Pulse Ox 98 Oxygen Delivery Method Room Air Positive well nourished and well developed; Negative for cachectic, contractures or unkempt General Appearance ED: well developed; Negative for unkempt, cachectic, contractures, NAD or pallor Nutritional Appearance: Negative for cachectic HEENT Reports moist mucous membranes Negative for trauma or tenderness Eyes PERRL and EOMs intact bilaterally Neck no lymphadenopathy, supple and no JVD General: Negative for tenderness Resp normal respiratory effort and clear to auscultation bilaterally Cardio regular rate, regular rhythm, S1 normal heart sound, S2 normal heart sound and no murmurs Palpation: Negative for palpable S3 Rate: Negative for bradycardia or tachycardic Rhythm: Negative for abnormal rhythm Bruits: Negative for other GI normal to inspection, nondistended, normoactive bowel sounds, soft to palpation, non-tender, non-distended and no masses Inspection: Negative for abdominal distention Palpation: Negative for tender, guarding or rebound tenderness present Back/Spine normal to inspection; Negative for no thoracic nor lumbar tenderness Back/Spine Narrative: Thoracic spine and parathoracic soft tissue tenderness. No ecchymosis or bruising no redness or wounds. Both the lumbar and cervical spine are completely nontender. Cervical Spine: Negative for cervical spine tenderness and Negative for paracervical muscle tenderness Thoracic Spine / Upper Back: paraspinal muscle tenderness Extremity normal to inspection and no clubbing, cyanosis or edema Neuro oriented x3 and no sensory deficits noted Sensorium / Orientation: alert; Negative for confused, lethargic or stuporous Motor Exam: strength 5/5 throughout Psych mental status grossly normal Appearance: Negative for unkempt Skin no rashes or lesions noted and no wounds General Skin Exam: Negative for jaundice or pallor Lesions: No lesion noted Rashes: No rashes noted Trauma: Negative for abrasion or puncture Wounds: Negative for wounds noted MDM MDM MDM Narrative Medical decision making narrative: 55-year-old female with sudden onset thoracic clinic today when she caught her 4-year-old grandson following from a slide. Pain in her parathoracic spine and thoracic tenderness. X-ray being obtained. She was given IV morphine for pain and Zofran. Repeat exam patient is doing much better around 330 after receiving the IV morphine. I think is a secondary to parathoracic muscle strain and spasm. Her x-ray was unremarkable of thoracic spine. She was placed on limited Percocet for pain. 12 no refill. Motrin. Hot shower, warm bath massage and a muscle relaxant. History & Record Review Discussion w/independent historian: Patient Additional record(s) reviewed:: Prior inpatient record, Prior outpatient record, Prior ED visit and Prior labs Radiography X-Ray: T-Spine, Read by ED Physician, Normal, No Fracture and Normal Bony Alignment Diagnostic Testing: Thoracic spine, 3 views, interpreted myself shows no acute abnormality. No fracture. No compression fracture. I went over the x-ray with the patient. Discharge Plan Triage Chief Complaint: Back ED Provider: Zain Carvajal Dx/Rx/DC Orders Clinical Impression: Acute thoracic myofascial strain, Back muscle spasm, History of back surgery, History of atrial fibrillation Instructions: ED Muscle Spasm, ED Thoracic Spine Strain Prescriptions: New oxycodone-acetaminophen [Percocet] 5-325 mg tablet 1 tab PO Q6H PRN (Reason: pain) 4 Days Qty: 12 0RF metaxalone 800 mg tablet 800 mg PO TID 7 Days Qty: 21 0RF No Action [id number]-FA-vit K-lut 1 EACH tablet 1 tab PO DAILY levetiracetam 750 MG tablet 1,500 mg PO TID fluticasone propionate [Flonase Allergy Relief] 50 mcg/actuation [place],Suspension 1 spray INTRANASAL DAILY Rx Instructions: administer into each nostril lidocaine 5 % ointment 1 applic topical TID PRN (Reason: skin irritation) Qty: 50 1RF cyclobenzaprine 10 mg tablet 10 mg PO TID PRN (Reason: Muscle Spasm) Qty: 20 0RF oxycodone-acetaminophen [Percocet] 5-325 mg tablet 1 tab PO Q6H PRN (Reason: pain) 5 Days Qty: 20 0RF omeprazole 20 mg capsule,delayed release(DR/EC) 20 mg PO BID gabapentin 400 mg capsule 800 mg PO DAILY levetiracetam [Keppra] 1,000 mg tablet 1,000 mg PO Q12H tizanidine 2 mg capsule 2 mg PO TID PRN (Reason: muscle spasticity) Qty: 14 0RF oxycodone-acetaminophen 5-325 mg tablet 1 tab PO Q6H PRN PRN (Reason: Pain) 3 Days Qty: 10 0RF oxycodone-acetaminophen 5-325 mg tablet 1 tab PO Q6H PRN PRN (Reason: Pain) 3 Days Qty: 12 0RF Primary Care Provider: Amandeep Loredo Referrals: Amandeep Loredo DO [Primary Care Provider] - 1 Week if not improving Activity Restrictions/Additional Instructions: Motrin for pain and inflammation. Percocet for severe pain. Skelaxin is a muscle relaxant 1 pill 3 times a day till gone. Hot shower, warm bath, hot tub, massage for the muscle spasm. Follow-up with your doctor if not improving for further evaluation. Print Language: Italian Disposition Disposition: Home, Self Care
[2025-03-14 15:50] VITALS: BP 117/83; PULSE 70; RESP 16; TEMP 36.4; O2SAT 99
== END 2025-03-14 15:51 | disposition home or self-care (01) ==
PROVIDERS: Emergency Provider Emergency Medicine; PCP Family Medicine; Visit Provider Emergency Medicine
DX: S29.019A Strain of muscle and tendon of unspecified wall of thorax, initial encounter (principal); M62.830 Muscle spasm of back; I25.2 Old myocardial infarction; F17.210 Nicotine dependence, cigarettes, uncomplicated; X58.XXXA Exposure to other specified factors, initial encounter; Z86.16 Personal history of COVID-19
CPT/HCPCS: 72070; 96374; 96375; 99283; A4216; J2405

== ENCOUNTER 2025-04-14 07:36 | Emergency (ER) | payer MEDICARE, MEDICAID, SELFPAY ==
[2025-04-14 07:36] VITALS: BP 163/104; PULSE 97; RESP 24; TEMP 37.1; O2SAT 98
[2025-04-14 07:39] VITALS: BMI 28.0
--- NOTE | 2025-04-14 07:50 | EDS_ITS ---
HPI History of Present Illness Chief Complaint: Shortness of Breath Informant: patient Onset/Context/Timing Onset: Days Context: gradual Timing: Continuous Worsened by: - (Talking) Relieved by: Nothing Associated Symptoms cough, rhinorrhea and yellow sputum; Negative for post nasal drip, ear pain, fever, sore throat, chills, sweats, clear sputum, white sputum or green sputum Chest Pain: Positive for Sharp and Burning Narrative Narrative: Patient presents with shortness of breath that has been getting worse over the past several days. Patient states she had a coughing episode this morning. Patient states that during a coughing episode, she felt a pop in her back and chest. Patient states she has sharp pain in her chest. Patient states it is worse when she takes deep breaths. Patient states that is also worse with talking. Patient states nothing makes her breathing any better. Patient denies any fevers or chills. Patient admits to some rhinorrhea. Patient states she has been coughing up some yellow sputum. PE Risk Factors: Positive for Cancer; Negative for OCP + Smoking + > 35, Prior DVT or PE, Recent immobilization, Recent surgery or Recent travel [facility] Medical History (Updated 04/14/25 @ 09:[address] Alfred Parkinson, DO) NSTEMI (non-ST elevated myocardial infarction) Cardiac arrest COVID-19 Brain aneurysm Chronic pain Rheumatoid arthritis Kidney stones Kidney disease GERD (gastroesophageal reflux disease) Former smoker Sleep apnea Asthma Migraines Seizures Home Medications ?Medication ?Instructions ?Recorded ?Last Taken ?Type [id number] 8 mg-folic 400 1 tab PO DAILY suppl ement 03/21/19 07/26/21 History mcg-K 50 mcg-lutein 300 mcg tablet levetiracetam 750 mg tablet 1,500 mg PO TID seizures 0 12/04/19 07/26/21 History fluticasone propionate 50 1 spray intranasal DAILY 09/15 Unknown History mcg/actuation nasal spray,suspension (Flonase Allergy Relief) lidocaine 5 % topical ointment 1 applic topical TID [place] N skin 11/17/22 Unknown Rx irritation #50 grams cyclobenzaprine 10 mg tablet 10 mg PO TID PRN Muscle S pasm #20 05/11/24 Unknown Rx TABLETS oxycodone-acetaminophen 5 mg-325 1 tab PO Q6H PRN PRN Pain 3 days 06/29/24 Unknown Rx mg tablet #10 TABLETS oxycodone-acetaminophen 5 mg-325 1 tab PO Q6H PRN pain 5 days #20 08/07/24 Unknown Rx mg tablet (Percocet) tabs gabapentin 400 mg capsule 800 mg PO DAILY 09/04/24 Unk nown History levetiracetam 1,000 mg tablet 1,000 mg PO Q12H 5 Unknown History (Keppra) omeprazole 20 mg capsule,delayed 20 mg PO BID 09/04/24 Unknown History release tizanidine 2 mg capsule 2 mg PO TID PRN muscle spast icity 10/21/24 Unknown Rx #14 caps oxycodone-acetaminophen 5 mg-325 1 tab PO Q6H PRN PRN Pain 3 days 01/05/25 Unknown Rx mg tablet #12 TABLETS metaxalone 800 mg tablet 800 mg PO TID 7 days #21 tab s 03/14/25 Unknown Rx oxycodone-acetaminophen 5 mg-325 1 tab PO Q6H PRN pain 4 days #12 03/14/25 Unknown Rx mg tablet (Percocet) tabs azithromycin 250 mg tablet 250 mg PO DAILY #4 TABLETS 04/14/25 Unknown Rx Allergy/AdvReac Type Severity Reaction Status Date / Time Penicillins Allergy Anaphylaxis Verified 04/14/25 07:58 propoxyphene napsylate (From Allergy Rash Verified 04/14/25 07:58 Darvocet-N 100) adhesive tape (plastic tape) AdvReac Other Verified 04/14/25 07:58 hydrocodone bitartrate (From AdvReac Itching Verified 04/14/25 07:58 Vicodin) Iodinated Contrast Media AdvReac Vomiting Verified 04/14/25 07:58 (contrast dye - iodinated) venom-honey bee (bee venom AdvReac Chest Verified 04/14/25 07:58 (honey bee)) tightness Surgical History (Updated 04/14/25 @ 08:[address] Alfred Parkinson DO) History of kidney surgery History of hysterectomy Hx of neck surgery Previous back surgery History of appendectomy History of cholecystectomy Social History household members: none Smoking Status: Current every day smoker tobacco type: cigarettes substance use type: does not use ROS ROS ED Constitutional Constitutional ED: Denies chills or fever(s) Eyes Eyes: Denies blurry vision or change in vision ENT ENT ED: Denies rhinorrhea or sore throat Cardiovascular Cardiovascular: Reports chest pain; Denies palpitations Respiratory/Chest Respiratory/Chest: Reports cough and dyspnea Gastrointestinal Gastrointestinal: Reports nausea; Denies vomiting Genitourinary Genitourinary ED: Denies dysuria or hematuria Musculoskeletal Musculoskeletal: Reports back pain and neck pain Integumentary Denies abscess or rash Neurologic Neurologic: Denies headache(s) or weakness Allergic/Immunologic Allergic/Immunologic ED: Denies mouth swelling or urticaria EXAM Physical Exam Const Vital Signs: 04/14/25 07:36 04/14/25 07:56 04/14/25 08:07 Temperature 98.7 F Temperature Source Oral Pulse Rate 97 Respiratory Rate 24 H Respiratory Effort Normal Respiratory Depth Normal Respiratory Pattern Normal Blood Pressure 163/104 H Blood Pressure Mean 123 Pulse Ox 98 98 Oxygen Delivery Method Room Air Room Air Room Air Positive well nourished and well developed Constitutional Narrative: BMI is 28.0. General Appearance ED: well developed and NAD HEENT Reports moist mucous membranes atraumatic Neck supple, no meningeal signs and no JVD Resp normal respiratory effort Auscultation: diminished lung sounds Cardio regular rate and regular rhythm GI non-distended Palpation: soft and tender epigastric Extremity normal to inspection General Extremety ED: Negative for edema or tenderness General Extremity: Negative for edema Neuro oriented x3, CN's II-XII intact bilaterally and no sensory deficits noted Nita Coma Scale: document GCS findings Spontaneous Obeys Commands Oriented 15 Sensorium / Orientation: alert Speech: speech normal Motor Exam: strength 5/5 throughout Psych Mood & Affect: anxious and tearful MDM MDM MDM Narrative Medical decision making narrative: Differential diagnosis includes pneumonia, pneumothorax, bronchitis, cardiac dysrhythmia, cardiac ischemia, gastroesophageal reflux disease, and anxiety. EKG will be obtained to assess for cardiac dysrhythmia and cardiac ischemia. Chest x-ray will be obtained to assess for pneumonia, bronchitis, pneumothorax. CBC will be obtained to assess for leukocytosis or anemia. Basic metabolic profile will be obtained to assess for electrolyte abnormality renal function. High-sensitivity troponin will be obtained to assess for cardiac ischemia. History & Record Review Additional record(s) reviewed:: Prior outpatient record, Prior ED visit and Prior labs Lab Data Attestation: I reviewed the patient's lab results. Lab results narrative: CBC was reviewed. There is a mild leukocytosis of 11.9. The remainder is within normal limits. Basic metabolic profile was reviewed and was within normal limits. High-sensitivity troponin was reviewed and was less than 6. Labs: Laboratory Results - last 24 hr 04/14/25 08:04 WBC 11.9 H RBC 4.46 Hgb 13.9 Hct 42.2 MCV 94.6 MCH 31.2 MCHC 32.9 RDW Std Deviation 45.4 H RDW Coeff of Bere 13.1 Plt Count 307 MPV 9.5 Immature Gran % (Auto) 0.400 Neut % (Auto) 67.2 Lymph % (Auto) 25.5 George % (Auto) 5.4 Eos % (Auto) 1.0 Baso % (Auto) 0.5 Absolute Neuts (auto) 8.0 H Absolute Lymphs (auto) 3.03 Nucleated RBC % 0 Sodium 141 Potassium 3.3 Chloride 104 Carbon Dioxide 22.4 Anion Gap 14 BUN 9 Creatinine 0.66 L Estim Creat Clear Calc 111.37 Est GFR (MDRD) Non-Af 103 BUN/Creatinine Ratio 12.9 Glucose 111 H Calcium 8.8 Troponin T High Sens < 6 Radiography Chest X-Ray - ED: 2 View, Read by ED Physician, Read by Radiologist, No Acute Disease and Right Infiltrate Diagnostic Testing: Clinical Impression(s) from Imaging Studies Chest X-Ray 04/14/25 08:20 IMPRESSION: Prior lower cervical surgery is seen. Right upper quadrant abdominal surgical clips again noted. Lungs are moderately hyperinflated, with chronic lung changes also noted, most prominent in the lower lung zones. Best seen on the lateral view is airspace disease in the right lower lobe, concerning for the presence of pneumonitis. No pleural effusion or pneumothorax is seen. The cardiomediastinal silhouette is stable, without evidence of cardiomegaly. No acute osseous change is seen. Reading Location: [place] [id number] [place] and lateral chest x-ray was obtained. There are 2 views. On my independent interpretation, lung guerra show a right lower lobe infiltrate. There is normal cardiac silhouette. Bony thorax is normal. Radiologist also interpreted the x- ray and agrees. EKG Initial EKG: Attestation: I personally reviewed and interpreted this EKG as follows: Interpretation: Sinus Rhythm (84) and No Acute Injury Pattern Comments: EKG was obtained. On my independent interpretation, it showed a normal sinus rhythm with a rate of 84. FL interval, QRS interval, and QTc intervals were all normal. [place] was normal. There are no acute ST or T wave changes. Prior EKG tracings: available for review Prior: Unchanged (10/20/2024) Treatment and Re-Evaluation :: Patient was given an injection of morphine here. Patient was advised of her findings. Patient was given a prescription for Zithromax. Patient was given first dose here. Patient was instructed to drink plenty of fluids. Patient was instructed to take Tylenol as needed for pain or fevers. Patient was instructed to follow-up with her primary care physician in 5 to 7 days. Patient understood and was agreeable with plan. All questions were answered. Discharge Plan Triage Chief Complaint: Shortness of Breath ED Provider: Alfred Parkinson Dx/Rx/DC Orders Clinical Impression: Pneumonia, Elevated blood pressure reading Instructions: ED Pneumonia (Adult) Prescriptions: New azithromycin 250 mg tablet 250 mg PO DAILY Qty: 4 0RF No Action txeknnbp-tvv-ptci-FA-vit K-lut 1 EACH tablet 1 tab PO DAILY levetiracetam 750 MG tablet 1,500 mg PO TID fluticasone propionate [Flonase Allergy Relief] 50 mcg/actuation [place],Suspension 1 spray INTRANASAL DAILY Rx Instructions: administer into each nostril lidocaine 5 % ointment 1 applic topical TID PRN (Reason: skin irritation) Qty: 50 1RF cyclobenzaprine 10 mg tablet 10 mg PO TID PRN (Reason: Muscle Spasm) Qty: 20 0RF oxycodone-acetaminophen [Percocet] 5-325 mg tablet 1 tab PO Q6H PRN (Reason: pain) 5 Days Qty: 20 0RF omeprazole 20 mg capsule,delayed release(DR/EC) 20 mg PO BID gabapentin 400 mg capsule 800 mg PO DAILY levetiracetam [Keppra] 1,000 mg tablet 1,000 mg PO Q12H tizanidine 2 mg capsule 2 mg PO TID PRN (Reason: muscle spasticity) Qty: 14 0RF oxycodone-acetaminophen 5-325 mg tablet 1 tab PO Q6H PRN PRN (Reason: Pain) 3 Days Qty: 10 0RF oxycodone-acetaminophen 5-325 mg tablet 1 tab PO Q6H PRN PRN (Reason: Pain) 3 Days Qty: 12 0RF oxycodone-acetaminophen [Percocet] 5-325 mg tablet 1 tab PO Q6H PRN (Reason: pain) 4 Days Qty: 12 0RF metaxalone 800 mg tablet 800 mg PO TID 7 Days Qty: 21 0RF Primary Care Provider: Amandeep Loredo Referrals: Amandeep Loredo DO [Primary Care Provider] - 5-7 Days Print Language: Kazakh Disposition Disposition: Home, Self Care
[2025-04-14 07:56] VITALS: O2SAT 96
[2025-04-14 08:07] VITALS: O2SAT 98
--- NOTE | 2025-04-14 08:07 | EKG12_ITS ---
Test Reason : Blood Pressure : */* mmHG Vent. Rate : 84 BPM Atrial Rate : 84 BPM P-R Int : 152 ms QRS Dur : 100 ms QT Int : 384 ms P-R-T Axes : 58 51 64 degrees QTcB Int : 453 ms Normal sinus rhythm RSR' or QR pattern in V1 suggests right ventricular conduction delay Borderline ECG Confirmed by WENDIE RICHARDSON, JAZMIN ([id number]), purchasing expeditor MAYRA SMALL ([id number]) on 04/17/2025 7:31:25 AM Referred By: Confirmed By: JAZMIN PRESSLEY MD
[2025-04-14 08:18] LABS: Hematocrit 42.2 % (37-47); Hemoglobin 13.9 g/dL (12.0-15.0); Immature Granulocytes Count 0.050 X10^3/uL (0.0-0.0); Mean Corp Hgb Conc 32.9 g/dL (32-36); Mean Corpuscular Volume 94.6 fL (81-99); Mean Platelet Vol. 9.5 fl (6.2-12.0); NRBC Flagged by Analyzer 0 % (0-5); Platelet Count 307 K/mm3 (150-450); RBC Distribution Width CV 13.1 % (11.6-14.6); RBC Distribution Width SD 45.4 fl (35.1-43.9); Red Blood Count 4.46 M/mm3 (4.2-5.4); White Blood Count 11.9 K/mm3 (4.4-11.0)
--- NOTE | 2025-04-14 08:20 | RAD_ITS ---
PROCEDURE: CHEST PA AND LATERAL 04/14/2025 REASON FOR EXAM: CHEST PAIN TECHNIQUE: CHEST PA AND LATERAL COMPARISON: Chest x-ray of 09/23/2022. RAD/Chest PA and Lateral IMPRESSION: Prior lower cervical surgery is seen. Right upper quadrant abdominal surgical clips again noted. Lungs are moderately hyperinflated, with chronic lung changes also noted, most prominent in the lower lung zones. Best seen on the lateral view is airspace disease in the right lower lobe, conc erning for the presence of pneumonitis. No pleural effusion or pneumothorax is seen. The cardiomediastinal silhouette is stable, without evidence of cardiomegaly. No acute osseous change is seen. Reading Location: [facility]-
[2025-04-14 08:58] LABS: Anion Gap 14 (5-15); BUN 9 mg/dL (4-19); BUN/Creat Ratio 12.9 RATIO (10-20); Calcium,Total 8.8 mg/dL (7.6-11.0); Carbon Dioxide 22.4 mmol/L (21.0-32.0); Chloride 104 mmol/L (98-108); Estimated Creatinine Clearance 111.37 ml/min (50-250); Glucose 111 mg/dL (70-99); Potassium 3.3 mmol/L (3.3-5.1); Troponin T High Sensitivity < 6 ng/L (<=14)
[2025-04-14 09:15] VITALS: BP 138/82; PULSE 66; RESP 16; TEMP 36.9; O2SAT 95
== END 2025-04-14 09:15 | disposition home or self-care (01) ==
PROVIDERS: Emergency Provider Emergency Medicine; PCP Family Medicine; Visit Provider Emergency Medicine
DX: J18.9 Pneumonia, unspecified organism (principal); R03.0 Elevated blood-pressure reading, without diagnosis of hypertension; F17.210 Nicotine dependence, cigarettes, uncomplicated; R07.9 Chest pain, unspecified; K21.9 Gastro-esophageal reflux disease without esophagitis; J45.909 Unspecified asthma, uncomplicated; I25.2 Old myocardial infarction; Z79.899 Other long term (current) drug therapy
CPT/HCPCS: 71046; 80048; 84484; 85025; 93005; 96374; 99284; A4216

== ENCOUNTER 2025-04-15 16:18 | Observation (INO) | payer MEDICARE, MEDICAID, SELFPAY ==
[2025-04-15] VITALS (8 sets, daily range): BP systolic 119–144; BP diastolic 76–100; PULSE 89–100; RESP 18–20; TEMP 36.5–37.1; O2SAT 95–98; BMI 26.1; BMI 26.6
--- NOTE | 2025-04-15 16:47 | EKG12_ITS ---
Test Reason : Blood Pressure : */* mmHG Vent. Rate : 91 BPM Atrial Rate : 91 BPM P-R Int : 146 ms QRS Dur : 90 ms QT Int : 376 ms P-R-T Axes : 53 43 59 degrees QTcB Int : 462 ms Normal sinus rhythm RSR' or QR pattern in V1 suggests right ventricular conduction delay Borderline ECG Confirmed by TRACY RICHARDSON, ANISA ([id number]), editor farm journal MAYRA SMALL ([id number]) on 04/17/2025 1:03:57 PM Referred By: Confirmed By: ANISA MOLINA MD
--- NOTE | 2025-04-15 16:48 | ED.VIS.DYS ---
HPI History of Present Illness Chief Complaint: Shortness of Breath Narrative Narrative: 55-year-old female presents with increasing dyspnea with recent diagnosis of pneumonia. She states that a few days prior to her being seen in the emergency department yesterday evening, she was having upper respiratory infection type symptoms such as fever and productive cough. She was seen in the emergency department yesterday evening and diagnosed with pneumonia. She was sent home on azithromycin. Since then, she states she developed diarrhea as well as nausea and vomiting. She has vomited at least 10 times without any hematemesis. She developed a loose stool as well. She states she is having increasing chest pressure which she was also having last night. She has a past medical history of seizure disorder and was unable to take her Keppra as she has been vomiting all day. She states she was not sent home with any albuterol. [facility] Medical History NSTEMI (non-ST elevated myocardial infarction) Cardiac arrest COVID-19 Brain aneurysm Chronic pain Rheumatoid arthritis Kidney stones Kidney disease GERD (gastroesophageal reflux disease) Former smoker Sleep apnea Asthma Migraines Seizures Home Medications ?Medication ?Instructions ?Recorded ?Last Taken ?Type hdeipeno-zjkd-[id number] 8 mg-folic 400 1 tab PO DAILY supplement 03/21/19 07/26/21 History mcg-K 50 mcg-lutein 300 mcg tablet levetiracetam 750 mg tablet 1,500 mg PO Q12H seizures 12/04/19 07/26/21 History fluticasone propionate 50 1 spray intranasal DAILY 08/24/22 Unknown History mcg/actuation nasal spray,suspension (Flonase Allergy Relief) cyclobenzaprine 10 mg tablet 10 mg PO TID PRN Muscle Spasm #20 05/11/24 Unknown Rx TABLETS oxycodone-acetaminophen 5 mg-325 1 tab PO Q6H PRN pain 5 days #20 08/07/24 Unknown Rx mg tablet (Percocet) tabs gabapentin 400 mg capsule 800 mg PO Q12H 09/04/24 Unknown History levetiracetam 1,000 mg tablet 1,000 mg PO Q12H 09/04/24 Unknown History (Keppra) omeprazole 20 mg capsule,delayed 20 mg PO BID 09/04/24 Unknown History release tizanidine 2 mg capsule 2 mg PO TID PRN muscle spasticity 10/21/24 Unknown Rx #14 caps metaxalone 800 mg tablet 800 mg PO TID 7 days #21 tabs 03/14/25 Unknown Rx oxycodone-acetaminophen 5 mg-325 1 tab PO Q6H PRN pain 4 days #12 03/14/25 Unknown Rx mg tablet (Percocet) tabs azithromycin 250 mg tablet 250 mg PO DAILY #4 TABLETS 04/14/25 Unknown Rx oxycodone-acetaminophen 5 mg-325 1 tab PO Q4H PRN Pain 04/15/25 Unknown History mg tablet Allergy/AdvReac Type Severity Reaction Status Date / Time Penicillins Allergy Anaphylaxis Verified 04/15/25 16:21 propoxyphene napsylate (From Allergy Rash Verified 04/15/25 16:21 Darvocet-N 100) adhesive tape (plastic tape) AdvReac Other Verified 04/15/25 16:21 hydrocodone bitartrate (From AdvReac Itching Verified 04/15/25 16:21 Vicodin) Iodinated Contrast Media AdvReac Vomiting Verified 04/15/25 16:21 (contrast dye - iodinated) venom-honey bee (bee venom AdvReac Chest Verified 04/15/25 16:21 (honey bee)) tightness Surgical History History of kidney surgery History of hysterectomy Hx of neck surgery Previous back surgery History of appendectomy History of cholecystectomy Social History household members: none Smoking Status: Current every day smoker tobacco type: cigarettes substance use type: does not use ROS ROS ED ROS Narrative Review of systems positive for cough, productive, subjective fever. Positive nausea and vomiting as well as diarrhea today. At least 10 episodes of vomiting. No hematemesis. Positive chest pressure and dyspnea. Unable to take medications orally. EXAM Physical Exam Narrative Exam Narrative: Afebrile. Vital signs noted. Nontoxic-appearing. Cardiovascular examination reveals a regular rate and rhythm. Positive rhonchi bilateral lung guerra, moving a good amount of air. Abdomen soft and nontender with positive bowel sounds. No guarding or rebound. Neurological examination nonfocal, nonlateralizing. Const Vital Signs: 04/15/25 16:19 04/15/25 16:47 04/15/25 16:47 Temperature 98.4 F Temperature Source Oral Pulse Rate 98 Respiratory Rate 20 H Respiratory Effort Normal Non-Labored Respiratory Depth Normal Respiratory Pattern Normal Blood Pressure 131/100 H Blood Pressure Mean 110 Pulse Ox 98 Oxygen Delivery Method Room Air Room Air Room Air 04/15/25 16:56 04/15/25 16:59 Temperature 98.8 F Temperature Source Oral Pulse Rate 89 100 Respiratory Rate 20 H 20 H Respiratory Effort Respiratory Depth Respiratory Pattern Tachypnea Blood Pressure 138/76 H Blood Pressure Mean 96 Pulse Ox 98 Oxygen Delivery Method Room Air MDM MDM MDM Narrative Medical decision making narrative: The differential diagnosis includes but not limited to worsening pneumonia versus ACS versus gastritis/gastroenteritis secondary to antibiotic use. I reviewed her prior workup and laboratory work. Her chest x-ray was concerning for pneumonitis. She did take Zithromax. She will be given a DuoNeb aerosolized treatment. I will obtain an EKG to look for ischemia but she had a negative troponin yesterday. I do not feel she needs repeat troponins. She will be loaded with her Keppra 1 g intravenously as in review of her medication list she takes Keppra I will 1000 mg twice a day. This is to prevent her from having a seizure. Review of her medication list shows anaphylaxis to penicillin. Hence for her community-acquired pneumonia she will be started on Levaquin intravenously. I will repeat her laboratory work in the form of CBC and BMP, but I do not feel that chest x-ray is indicated as she just had it last night. I reviewed her laboratory work and her white count has actually decreased to 7.2, hemoglobin slightly hemoconcentrated at 15.3 with hematocrit 45.9, platelet count normal at 327, electrolyte panel grossly unremarkable except for creatinine low at 0.55, glucose 105 with normal anion gap of 14. Patient was administered Keppra intravenously as stated previously. I did change her antibiotic to Levaquin as stated as well. I discussed the patient with Dr. Gooden for observation on the medical surgical floor. Repeat examination did show mild improvement with her nausea after ondansetron. Disposition is assigned observation in stable condition. History & Record Review Discussion w/independent historian: Patient and Family Additional record(s) reviewed:: Prior ED visit (Diagnosed with pneumonia, placed on Zithromax.) Lab Data Attestation: I reviewed the patient's lab results. Labs: Laboratory Results - last 24 hr 04/15/25 17:33 WBC 7.2 RBC 4.90 Hgb 15.3 H Hct 45.9 MCV 93.7 MCH 31.2 MCHC 33.3 RDW Std Deviation 43.8 RDW Coeff of Bere 12.7 Plt Count 327 MPV 9.6 Immature Gran % (Auto) 0.300 Neut % (Auto) 70.2 H Lymph % (Auto) 21.7 Valley % (Auto) 6.4 Eos % (Auto) 0.8 Baso % (Auto) 0.6 Absolute Neuts (auto) 5.0 Absolute Lymphs (auto) 1.56 Nucleated RBC % 0 Sodium 142 Potassium 3.5 Chloride 106 Carbon Dioxide 21.9 Anion Gap 14 BUN 6 Creatinine 0.55 L Estim Creat Clear Calc 129.45 Est GFR (MDRD) Non-Af 108 BUN/Creatinine Ratio 11.4 Glucose 105 H Calcium 9.4 Management Discussion w/another healthcare provider: Hospitalist (Dr. Gooden) Discharge Plan Dx/Rx/DC Orders Clinical Impression: Intractable nausea and vomiting, Pneumonia, Seizure disorder Disposition Disposition: Acute Care [facility]
--- OUTSIDE RECORDS SUMMARY | 2025-04-15 17:09 | XMS RPT_ITS | CCD ---
Author Organization [facility] Care Team Providers Care Clin Application Specialist Name Role Phone Amandeep Loredo Primary Care Provider Dr. Ari Sotomayor Primary Care Provider [phone] Dr. Ari Sotomayor Referring Provider LILIAN Mcgraw Attending Provider Amandeep Loredo DO Primary Care Provider Amandeep Loredo DO Primary Care Provider DR AMANDEEP LOREDO DO Primary Care Physician BELINDA COVARRUBIAS MD Attending Unavailable DR AMANDEEP LOREDO DO Primary Care Unavailab Amandeep King DO Primary Care Provider Unavailable Primary Care Provider UnavailAir Quezada DO Primary Care Provider Dr. Amandeep Loredo DO Primary Care Provider Dr. Luis Angel Morales DO Attending Provider Dr. Luis Angel Morales DO Referring Provider Dr. Luis Angel Morales DO Emergency Provider Dr. Franki Flynn DO Emergency Provider Dr. Amandeep Loredo DO Primary Care Provider Dr. Franki Flynn DO Attending Provider Dr. Zain Carvajal MD Emergency Provider Jordin Chisholm Attending Unavailable Amandeep Loredo Primary Care Unavailable Narciso Baron Attending Unavailable Amandeep Loredo Primary Care Unavailable Amandeep Loredo Referring Unavailable Trevor Pisano Attending Unavailable [facility] [place] Primary Care Unavailable [facility] [place] Primary Care Unavailable Franki Flynn Attending Unavailable [facility] [place] Primary Care Unavailable Zain Carvajal Attending Unavailable Luis Angel Morales Attending Unavailable Luis Angel Morales Referring Unavailable Petria, Amandeep Primary Care Unavailable Petria, Amandeep Primary Care Unavailable Mattie Jeffrey Attending [facility] Unavailable Kenny Kaye Attending Unavailable Wei RICHARDSON, Dr. Pittman Attending Provider Dr. Alfred Parkinson DO Emergency Provider [phone] Allergies Allergy Classification Reported Allergen(s) Allergy Type Date of Onset Reaction(s) Facility Acetaminophen / HYDROcodone (1 source) Acetaminophen / HYDROcodone Drug Allergy 04-21-20 12 [facility] acetaminophen / propoxyphene (1 source) acetaminophen / propoxyphene Drug [facility] Penicillins (antibiotic) (1 source) Penicillins Drug Allergy 07-05-20 02 [facility] Work Phone: (20 sources) Acetaminophen / HYDROcodone Drug Allergy 04-21-20 12 Itching, Rash [place] (16 sources) Adhesive Tape; Translations: [adhesive tape] Propensity to adverse reactions to drug 04-24-20 15 Other [place] Comment on above: BLISTERING (20 sources) bee venom Propensity to adverse reactions to drug 02-01-20 16 Chest tightness [place] (3 sources) Latex Propensity to adverse reactions to drug 04-11-20 19 [place] (5 sources) Penicillins Propensity to adverse reactions to drug 04-24-20 15 Swelling, Rash [place] (20 sources) Propoxyphene; Translations: [propoxyphene] Drug Allergy 04-11-20 19 [place] (2 sources) Barium-Containing Compounds Propensity to adverse reactions to drug 04-24-20 15 [place] (20 sources) Other Propensity to adverse reactions 04-24-20 15 Shortness Of Breath, Other [place] (9 sources) Contrast media Propensity to adverse reactions 03-21-20 22 Vomiting [facility] (17 sources) HYDROcodone; Translations: [hydrocodone bitartrate] Drug Allergy 03-21-20 22 Itching [facility] (17 sources) Propoxyphene; Translations: [propoxyphene napsylate] Drug Allergy 03-21-20 22 Rash [facility] (4 sources) PLASTIC TAPE Allergy to substance 03-21-20 22 blistering [facility] Work Phone: (14 sources) Penicillins Allergy to substance 05-04-20 22 Anaphylaxis [facility] (20 sources) Honey bee venom Propensity to adverse reactions 04-11-20 19 [facility] (20 sources) HYDROcodone Drug Allergy 02-01-20 16 [facility] (20 sources) Latex Propensity to adverse reactions 04-11-20 19 [facility] (20 sources) Penicillins Drug Allergy 07-05-20 02 Rash, Swelling [facility] (20 sources) Barium-Containing Compounds Drug Intolerance 04-24-20 15 [facility] (20 sources) Iodinated Contrast Media Drug Intolerance 10-08-19 16 Nausea And Vomiting [facility] (7 sources) Triiodobenzoic Acids Propensity to adverse reactions 02-16-20 23 Vomiting [facility] (1 source) Acetaminophen / HYDROcodone; Translations: [acetaminophen-hy drocodone] Drug Allergy [facility] (1 source) Contrast media; Translations: [iodinated radiocontrast agents] Allergy to substance [facility] complaints Normal [facility] Elbow min 3 Viewson 05-11-20 24 Elbow min 3 Views [facility] Imaging Services [address] [place] [address] Elbow min 3 Views MR#: [id number] Acct: [id number] Name: ORTIZ JACOBS Rep #: [id number] : 1970 F 54 From: Kunal Rodriguez MD PCP: Dr. Amandeep Loredo DO Status: PRE ER Study: Elbow min 3 Views Date of Exam: 05/11/24 Exam# [id number] Ordering Dr: [place] [id number] INDICATION: pain, truama EXAMINATION/TECHNIQUE: X-RAY - LEFT XR Elbow Min 3 Views COMPARISON: None. FINDINGS: SOFT TISSUES: Unremarkable. BONES/JOINTS: No fracture or dislocation. No significant degenerative changes. No erosive changes. RAD/Elbow min 3 Views IMPRESSION: No fracture or dislocation. Electronically Signed: Kunal Rodriguez DO at 22:43 EDT , CC: Dr. Mattie Jeffrey DO; Dr. Amandeep Loredo DO Radio Station Engineer: Signed Normal [facility] Emergency Department Summary on 05-11-2024 Emergency Department Summary [facility] Medical Records Department [address] [place] [id number] Emergency Department Summary 05/11/24 MR#: [id number] Acct: [id number] Name: ORTIZ JACOBS Rep #: [id number] : 1970 54 From: Mattie Jeffrey DO PCP: Dr. Amandeep Loredo DO Status:DEP ER Location: ED HPI History of Present Illness Chief Complaint: Fall Informant: patient Narrative Narrative: Patient is a 54-year-old female with history of seizures, gastroparesis, proximal atrial fibrillation, migraines and C. difficile colitis (not on any blood thinners) presenting for evaluation after fall. Patient was going down a flight of stairs. She was senior living [place] the [place] when she slipped on 2 steps and then fell down another 5 steps. Her tried to catch her. She struck her left wrist and landed on her buttocks. She states she has a history of prior back surgery and this feels like there is something poking her in her left buttocks. She denies any numbness or tingling. She denies hitting her head. No other complaints or concerns at this time. PFSH PFSH Medical History NSTEMI (non-ST elevated myocardial infarction) Cardiac arrest COVID-19 Brain aneurysm Chronic pain Rheumatoid arthritis Kidney stones Kidney disease GERD (gastroesophageal reflux disease) Former smoker Sleep apnea Asthma Migraines Seizures Home Medications ???Medication ???Instructions ???Recorded ???Last Taken ???Type qpkynpik-hyvg-okir 8 mg-folic 400 1 tab PO DAILY supplement 03/21/19 07/26/21 History mcg-K 50 mcg-lutein 300 mcg tablet levetiracetam 750 mg tablet 1,500 mg PO TID seizures 12/04/19 07/26/21 History fluticasone propionate 50 1 spray intranasal DAILY 08/24/22 Unknown History mcg/actuation nasal spray,suspension (Flonase Allergy Relief) oxycodone-acetaminophen 5 mg-325 1 tab PO Q6H PRN PRN Pain 3 days 08/24/22 Unknown Rx mg tablet #10 TABLETS lidocaine 5 % topical ointment 1 applic topical TID PRN skin 11/17/22 Unknown Rx irritation #50 grams cyclobenzaprine 10 mg tablet 10 mg PO TID PRN Muscle Spasm #20 05/11/24 Unknown Rx TABLETS Allergy/AdvReac Type Severity Reaction Status Date / Time Penicillins Allergy Anaphylaxis Verified 05/11/24 20:30 propoxyphene napsylate (From Allergy Rash Verified 05/11/24 20:30 Darvocet-N 100) adhesive tape (plastic tape) AdvReac Other Verified 05/11/24 20:30 hydrocodone bitartrate (From AdvReac Itching Verified 05/11/24 20:30 Vicodin) Iodinated Contrast Media AdvReac Vomiting Verified 05/11/24 20:30 (contrast dye - iodinated) venom-honey bee (bee venom AdvReac Chest Verified 05/11/24 20:30 (honey bee)) tightness Surgical History History of appendectomy History of cholecystectomy Social History household members: none Smoking Status: Former smoker substance use type: does not use ROS ROS ED Constitutional Constitutional ED: Denies chills or fever(s) Eyes Eyes: Denies change in vision Gastrointestinal Gastrointestinal: Denies nausea or vomiting Musculoskeletal Musculoskeletal: Reports back pain and other Details: Left wrist and hand pain Integumentary Denies Abrasions or rash Neurologic Neurologic: Denies headache(s), paresthesias or weakness Psychiatric Psychiatric: Reports anxiety Hematologic/Lymphatic Hematologic/Lymphatic: Denies easy bleeding or easy bruising EXAM Physical Exam Const Vital Signs: 05/11/24 20:33 05/11/24 21:52 Temperature 96.8 F L Temperature Source Temporal Pulse Rate 77 Respiratory Rate 18 Respiratory Effort Normal Respiratory Depth Normal Respiratory Pattern Normal Blood Pressure 152/84 H Blood Pressure Mean 106 Pulse Ox 97 Oxygen Delivery Method Room Air Positive well nourished and well developed Constitutional Narrative: Crying General Appearance ED: well developed HEENT HEENT Narrative: No trismus atraumatic Nose: Negative for septum abnormal Eyes PERRL and EOMs intact bilaterally Neck General: Negative for tenderness Chest Wall inspection of chest normal and palpation of chest normal Resp normal respiratory effort and clear to auscultation bilaterally Cardio regular rhythm Rate: regular rate GI normal to inspection, nondistended, normoactive bowel sounds and non-tender Back/Spine Back/Spine Narrative: Surgical lumbar incision at the midline present. Mild diffuse tenderness of the lower lumbar spine. Thoracic Spine / Upper Back: Negative for thoracic spinal tenderness Extremity normal to inspection and full ROM Extremity Narrative: Patient is complaining of pain at her left wrist over th (more content not included)... Normal [facility] Hand Min 3 Viewson 4 Hand Min 3 Views [facility] Imaging Services [address] [place], [place] [id number] Hand Min 3 Views MR#: [id number] Acct: [id number] Name: ORTIZ JACOBS Rep #: [id number] : 1970 F 54 From: Kunal Rodriguez MD PCP: Dr. Amandeep Loredo DO Status: PRE ER Study: Hand Min 3 Views Date of Exam: 05/11/24 Exam# [id number] Ordering Dr: [place] [id number] INDICATION: Injury/Pain EXAMINATION/TECHNIQUE: X-RAY - LEFT XR Hand Min 3 Views COMPARISON: 06/28/2022. FINDINGS: SOFT TISSUES: Unremarkable. BONES/JOINTS: No fracture or dislocation. No significant degenerative changes. No erosive changes. RAD/Hand Min 3 Views IMPRESSION: No fracture or dislocation. Electronically Signed: Kunal Rodriguez DO at 22:48 EDT , CC: Dr. Mattie Jeffrey DO; Dr. Amandeep Loredo DO Radio Station Engineer: Signed Normal [facility] Lumbar Spine 2 or 3 Viewson 05-11-2024 Lumbar Spine 2 or 3 Views [facility] Imaging Services [address] [place] [id number] Lumbar Spine 2 or 3 Views MR#: [id number] Acct: [id number] Name: ORTIZ JACOBS Rep #: [id number] : 1970 F 54 From: Kunal Rodriguez MD PCP: Dr. Amandeep Loredo DO Status: PRE ER Study: Lumbar Spine 2 or 3 Views Date of Exam: Exam# [id number] Ordering Dr: [place] [id number] INDICATION: Injury/Pain EXAMINATION/TECHNIQUE: X-RAY - XR Spine Lumbar 2 or 3 Views COMPARISON: 10/07/2023 CT. FINDINGS: VERTEBRAE: No fracture or subluxation. Stable postsurgical changes from L3 through S1. Mild degenerative changes about the hardware. No erosive changes. SOFT TISSUES: Unremarkable. INCLUDED ABDOMEN: Visualized abdomen is unremarkable. RAD/Lumbar Spine 2 or 3 Views IMPRESSION: No fracture or subluxation. Electronically Signed: Kunal Rodriguez DO at 22:46 EDT , CC: Dr. Mattie Jeffrey DO; Dr. Amandeep Loredo DO Radio Station Engineer: Signed Normal [facility] Pelvis 1 or 2 Viewson 2023 Pelvis 1 or 2 Views [facility] Imaging Services [address] [place] [id number] Pelvis 1 or 2 Views MR#: [id number] Acct: [id number] Name: ORTIZ JACOBS Rep #: [id number] : 1970 F 54 From: Kunal Rodriguez MD PCP: Dr. Amandeep Loredo DO Status: PRE ER Study: Pelvis 1 or 2 Views Date of Exam: 05/11/24 Exam# [id number] Ordering [place]: [place] [id number] INDICATION: Injury/Pain EXAMINATION/TECHNIQUE: X-RAY - XR Pelvis 1 or 2 Views COMPARISON: 10/07/2023. FINDINGS: PELVIC BONES: No fracture. The sacroiliac joints are unremarkable. The pubic symphysis is not widened. HIPS: No evidence of a fracture or dislocation. SOFT TISSUES: Unremarkable. RAD/Pelvis 1 or 2 Views IMPRESSION: No evidence of a pelvic fracture. Electronically Signed: Kunal Rodriguez DO at 22:50 EDT , CC: Dr. Mattie Jeffrey DO; Dr. Amandeep Loredo DO Radio Station Engineer: Signed Normal [facility] Wrist min 3 Viewson 05-11-20 Wrist min 3 Views [facility] Imaging Services [address] [place] [address] [place], [place] [id number] Wrist min 3 Views MR#: [id number] Acct: [id number] Name: ORTIZ JACOBS Rep #: [id number] : 1970 F 54 From: Kunal Rodriguez MD PCP: Dr. Amandeep Loredo DO Status: PRE ER Study: Wrist min 3 Views Date of Exam: 05/11/24 Exam# [id number] Ordering Dr: [place] [id number] INDICATION: Injury/Pain EXAMINATION/TECHNIQUE: X-RAY - LEFT XR Wrist Min 3 Views COMPARISON: None. FINDINGS: SOFT TISSUES: Unremarkable. BONES/JOINTS: No fracture or dislocation. No significant degenerative changes. No erosive changes. RAD/Wrist min 3 Views IMPRESSION: No fracture or dislocation. Electronically Signed: Kunal Rodriguez DO at 22:49 EDT , CC: Dr. Mattie Jeffrey, DO; Dr. Amandeep Loredo, DO Radio Station Engineer: Signed Normal [facility] Telephone Encounteron 2023 Cryogenics Engineer Authentication Interface Message Text Situation: Patient calling d/t having many blisters to arm, she thinks this is d/t dressing on her arm (from splint). She was told to put hydrocortisone ointment on it per the Ortho office. Background: Patient's chart verified by birthday, name and phone number, patient insistent that she was seen at for this after falling and breaking her arm, but per her chart she has not been seen at since 2016. 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 Recommendation: Triage recommends pt be seen within 24 hours, patient does not want to go to ER. She may go to express care. Reason for Disposition [1] Localized rash is very painful AND [2] no fever Answer Assessment - Initial Assessment Questions 1. APPEARANCE of RASH: Describe the rash. 50 blisters. Redness. 2. LOCATION: Where is the rash located? Left arm. 3. NUMBER: How many spots are there? 50. 4. SIZE: How big are the spots? (Inches, centimeters or compare to size of a coin) Very small blisters, but, some are larger. 5. ONSET: When did the rash start? Thursday morning. 6. ITCHING: Does the rash itch? If Yes, ask: How bad is the itch? (Scale 0-10; or none, mild, moderate, severe) Yes, 7-04/02. 7. PAIN: Does the rash hurt? If Yes, ask: How bad is the pain? (Scale 0-10; or none, mild, moderate, severe) - NONE (0): no pain - MILD (1-3): doesn't interfere with normal activities - MODERATE (4-7): interferes with normal activities or awakens from sleep - SEVERE (8-10): excruciating pain, unable to do any normal activities 04/02. 8. OTHER SYMPTOMS: Do you have any other symptoms? (e.g., fever) No. 9. : Is there any chance you are ? When was your last menstrual period? N/A Protocols used: Rash or Redness - [id number] Normal [facility] [employer] [facility] Absolute lymphocyte countOrd ered By: Franki Flynn on 12-01-2023 Lymphocytes Auto (Unsp spec) [#/Vol] 2.28 10*3/uL 0.83-4.51 [facility] Automated lymphocyte count a s percentage of total leukocytesOrdered By: Franki Flynn on 12-01-2023 Lymphocytes/100 WBC Auto (Unsp spec) 15.9 % 19-41 [facility] Basophil percentageOrdered B y: Franki Flynn on 12-01-2023 Basophils/100 WBC (Bld) 0.4 % 0-1 [facility] Bilirubin [Mass/Vol] 0.60 mg/dL 0.20-1.00 [facility] Comment on above: For patients on eltr ombopag therapy, use of Dimension [place] TBIL is not recommended. Chloride [Moles/Vol] 102 mmol/L 98-107 [facility] Eosinophils/100 WBC (Bld) 0.1 % 0-5 [facility] Glucose [Mass/Vol] 117 mg/dL 74-106 [facility] Comment on above: Fasting Glucose resu lt from 100 to 125 mg/dL suggests IMPAIRED HOMEOSTASIS per A.D.A. criteria. Hemoglobin (Bld) [Mass/Vol] 15.7 g/dL 12.0-15.0 [facility] Monocytes/100 WBC (Bld) 6.4 % 0-10 [facility] Neutrophils (Bld) [#/Vol] 11.0 10*3/uL 2.0-7.7 [facility] Neutrophils/100 WBC (Bld) 76.8 % 47-70 [facility] Potassium [Moles/Vol] 3.0 mmol/L 3.5-5.1 [facility] Protein [Mass/Vol] 7.7 g/dL 6.4-8.2 [facility] Sodium [Moles/Vol] 141 mmol/L 136-145 [facility] WBC (Bld) [#/Vol] 14.3 10*3/uL 4.4-11.0 [facility] Determination of erythrocyte mean corpuscular volume (MCV)Ordered By: Franki Flynn on 12-01-2023 MCV (RBC) [Entitic vol] 93.7 fL 81-99 [facility] Direct bilirubinOrdered By: Franki Flynn on 12-01-2023 Bilirubin.direct [Mass/Vol] 0.13 mg/dL 0.00-0.30 [facility] Erythrocyte distribution wid th ratioOrdered By: Franki Flynn on 12-01-2023 Erythrocyte distribution width (RBC) [Ratio] 12.3 % 11.6-14.6 [facility] Erythrocyte distribution wid th standard deviationOrdered By: Franki Flynn on 12-01-2023 Erythrocyte distribution width (RBC) [Entitic vol] 42.5 fL 35.1-43.9 [facility] Hematocrit Auto (Bld) [Volum e fraction]Ordered By: Franki Flynn on 12-01-2023 Hematocrit (Bld) [Volume fraction] 47.5 % 37-47 [facility] Immature granulocytes/100 WB C Auto (Bld)Ordered By: Franki Flynn on 12-01-2023 Immature granulocytes/100 WBC (Bld) 0.400 % 0.0-0.9 [facility] Comment on above: IG% - Immature Granu locytes (promyelocytes, myelocytes and metamyelocytes) > 1% indicates that a LEFT SHIFT is Present. Laboratory - Chemistry and C hemistry - challengeOrdered By: Franki Flynn on 12-01-2023 ALP [Catalytic activity/Vol] 152 U/L 45-117 [facility] ALT [Catalytic activity/Vol] 17 U/L 13-56 [facility] CO2 [Moles/Vol] 30.0 mmol/L 21.0-32.0 [facility] Globulin (S) [Mass/Vol] 3.7 g/dL 2.2-4.2 [facility] Lipase [Catalytic activity/Vol] 20 U/L 13-75 [facility] Comment on above: Please note:LIPASE r evised reference range effective 22. New Lipase methodology. Expected to produce lower values than the previous assay method. NEW Reference Range: 13 - 75 U/L Urea nitrogen/Creatinine [Mass ratio] 16.1 mg/mg 10-20 [facility] Laboratory - Hematology and Cell countsOrdered By: Franki Flynn on 12-01-2023 MCH (RBC) [Entitic mass] 31.0 pg 27.0-32.0 [facility] MCHC (RBC) [Mass/Vol] 33.1 g/dL 32-36 [facility] Nucleated RBC/100 WBC (Bld) [Ratio] 0 % 0-5 [facility] Platelet mean volume (Bld) [Entitic vol] 9.6 fL 6.2-12.0 [facility] Platelets (Bld) [#/Vol] 345 10*3/uL 150-450 [facility] No Panel InformationOrdered By: Franki Flynn on 12-01-2023 Estimated Creatinine Clearance Calc 96.45 ml/min [facility] Estimated GFR (MDRD) Amer 104 mL/min >60 [facility] Comment on above: GFR Calc Estimated GFR (MDRD) Non-Af Amer 86 mL/min >60 [facility] Comment on above: Non- GFR Calc RBC Auto (Bld) [#/Vol]Ordere d By: Franki Flynn on 12-01-2023 RBC (Bld) [#/Vol] 5.07 10*6/uL 4.2-5.4 [facility] Serum or plasma calcium tania urement (mass/volume)Ordered By: Franki Flynn on 12-01-2023 Calcium [Mass/Vol] 9.7 mg/dL 8.5-10.1 [facility] Serum or plasma creatinine m easurement (mass/volume)Ordered By: Franki Flynn on 12-01-2023 Creatinine [Mass/Vol] 0.74 mg/dL 0.55-1.02 [facility] Comment on above: The validity of the calculated GFR & GFRAA in patients over 70 years has not been determined. Clinical correlation is essential. Serum or plasma urea nitroge n measurement (mass/volume)Ordered By: Franki Flynn on 12-01-2023 Urea nitrogen [Mass/Vol] 12 mg/dL 7-18 [facility] Thin prep Papanicolaou smear with manual screeningOrdered By: Franki Flynn on 12-01-2023 Thin prep Papanicolaou smear with manual screening 4.0 g/dL 3.2-5.0 [facility] Thin prep Papanicolaou smear with manual screening 16 U/L 15-37 [facility] Thin prep Papanicolaou smear with manual screening 9 5-15 [facility] Absolute lymphocyte countOrd ered By: Narciso Tod on 10-07-2023 Lymphocytes Auto (Unsp spec) [#/Vol] 2.85 10*3/uL 0.83-4.51 [facility] Automated lymphocyte count a s percentage of total leukocytesOrdered By: Narcsio Baron on 10-07-2023 Lymphocytes/100 WBC Auto (Unsp spec) 37.3 % 19-41 [facility] Basophil percentageOrdered B y: Narciso Baron on 10-07-2023 Basophils/100 WBC (Bld) 0.9 % 0-1 [facility] Bilirubin [Mass/Vol] 0.10 mg/dL 0.20-1.00 [facility] Comment on above: For patients on eltr ombopag therapy, use of Dimension [place] TBIL is not recommended. Chloride [Moles/Vol] 111 mmol/L 98-107 [facility] Eosinophils/100 WBC (Bld) 1.3 % 0-5 [facility] Glucose [Mass/Vol] 114 mg/dL 74-106 [facility] Comment on above: Fasting Glucose resu lt from 100 to 125 mg/dL suggests IMPAIRED HOMEOSTASIS per A.D.A. criteria. Hemoglobin (Bld) [Mass/Vol] 15.7 g/dL 12.0-15.0 [facility] Monocytes/100 WBC (Bld) 6.3 % 0-10 [facility] Neutrophils (Bld) [#/Vol] 4.1 10*3/uL 2.0-7.7 [facility] Neutrophils/100 WBC (Bld) 53.8 % 47-70 [facility] Potassium [Moles/Vol] 3.8 mmol/L 3.5-5.1 [facility] Protein [Mass/Vol] 7.1 g/dL 6.4-8.2 [facility] Sodium [Moles/Vol] 142 mmol/L 136-145 [facility] WBC (Bld) [#/Vol] 7.6 10*3/uL 4.4-11.0 [facility] Blood manual differential co mment interpretation (narrative result)Ordered By: Narciso Baron on 10-07-2023 Manual differential comment Albert (Bld) [Interp] SCANNED [facility] Determination of erythrocyte mean corpuscular volume (MCV)Ordered By: Narciso Baron on 10-07-2023 MCV (RBC) [Entitic vol] 95.2 fL 81-99 [facility] Erythrocyte distribution wid th ratioOrdered By: Narciso Baron on 10-07-2023 Erythrocyte distribution width (RBC) [Ratio] 12.9 % 11.6-14.6 [facility] Erythrocyte distribution wid th standard deviationOrdered By: Narciso Baron on 10-07-2023 Erythrocyte distribution width (RBC) [Entitic vol] 45.2 fL 35.1-43.9 [facility] Hematocrit Auto (Bld) [Volum e fraction]Ordered By: Narciso Baron on 10-07-2023 Hematocrit (Bld) [Volume fraction] 48.0 % 37-47 [facility] Immature granulocytes/100 WB C Auto (Bld)Ordered By: Narciso Baron on 10-07-2023 Immature granulocytes/100 WBC (Bld) 0.400 % 0.0-0.9 [facility] Comment on above: IG% - Immature Granu locytes (promyelocytes, myelocytes and metamyelocytes) > 1% indicates that a LEFT SHIFT is Present. Laboratory - Chemistry and C hemistry - challengeOrdered By: Narciso Baron on 10-07-2023 Albumin/Globulin [Mass ratio] 1.2 {ratio} 0.9-2.4 [facility] ALP [Catalytic activity/Vol] 183 U/L 45-117 [facility] ALT [Catalytic activity/Vol] 16 U/L 13-56 [facility] CO2 [Moles/Vol] 25.0 mmol/L 21.0-32.0 [facility] Globulin (S) [Mass/Vol] 3.3 g/dL 2.2-4.2 [facility] Urea nitrogen/Creatinine [Mass ratio] 10.5 mg/mg 10-20 [facility] Laboratory - Hematology and Cell countsOrdered By: Narciso Baron on 10-07-2023 MCH (RBC) [Entitic mass] 31.2 pg 27.0-32.0 [facility] MCHC (RBC) [Mass/Vol] 32.7 g/dL 32-36 [facility] Nucleated RBC/100 WBC (Bld) [Ratio] 0 % 0-5 [facility] Platelet mean volume (Bld) [Entitic vol] 10.0 fL 6.2-12.0 [facility] Platelets (Bld) [#/Vol] 301 10*3/uL 150-450 [facility] No Panel InformationOrdered By: Narciso Baron on 10-07-2023 Estimated Creatinine Clearance Calc 106.59 ml/min [facility] Estimated GFR (MDRD) Amer 118 mL/min >60 [facility] Comment on above: GFR Calc Estimated GFR (MDRD) Non-Af Amer 98 mL/min >60 [facility] Comment on above: Non- GFR Calc RBC Auto (Bld) [#/Vol]Ordere d By: Narciso Baron on 10-07-2023 RBC (Bld) [#/Vol] 5.04 10*6/uL 4.2-5.4 [facility] Serum or plasma calcium tania urement (mass/volume)Ordered By: Narciso Baron on 10-07-2023 Calcium [Mass/Vol] 9.0 mg/dL 8.5-10.1 [facility] Serum or plasma creatinine m easurement (mass/volume)Ordered By: Narciso Baron on 10-07-2023 Creatinine [Mass/Vol] 0.67 mg/dL 0.55-1.02 [facility] Comment on above: The validity of the calculated GFR & GFRAA in patients over 70 years has not been determined. Clinical correlation is essential. Serum or plasma urea nitroge n measurement (mass/volume)Ordered By: Narciso Baron on 10-07-2023 Urea nitrogen [Mass/Vol] 7 mg/dL 7-18 [facility] Thin prep Papanicolaou smear with manual screeningOrdered By: Narciso Baron on 10-07-2023 Thin prep Papanicolaou smear with manual screening 3.8 g/dL 3.2-5.0 [facility] Thin prep Papanicolaou smear with manual screening 15 U/L 15-37 [facility] Thin prep Papanicolaou smear with manual screening 6 5-15 [facility] No Panel Informationon 07-06 Bismark Mott DO 07/06/2023 4:20 PM [facility] Neurology Lab EMG/NCS report: Patient: Ortiz Jacobs AGE: 53 y.o. Handedness: Right Gender: Female Referring physician: Shadia Kovacs PA-C Study date: 07/06/23 Reason for referral: Patient presents with pain in both arms. Patient also has paresthesias numbness and weakness in the arms as well. EMG/nerve conduction study of the bilateral upper extremities is done to evaluate for mononeuropathy affecting the right or left upper extremity versus right or left cervical radiculopathy. Summary: The left median sensory nerve action potential was remarkable for a prolonged peak latency. The right median sensory nerve action potential was remarkable for a prolonged peak latency and a decreased amplitude. The left ulnar sensory nerve action potential was unremarkable. The right ulnar sensory nerve action potential was unremarkable. The left median to ulnar palmar comparison mixed nerve action potential was remarkable for a prolonged median peak latency compared to its ulnar counterpart and a decreased median palmar amplitude. The right median to ulnar palmar comparison mixed nerve action potential was remarkable for a prolonged median palmar peak latency compared to its ulnar counterpart and a decreased median palmar amplitude. The left radial sensory nerve action potential was unremarkable. The right radial sensory nerve action potential was unremarkable. The left median to ulnar ring finger comparison study was remarkable for a prolonged median peak latency compared to its ulnar counterpart. The right median to ulnar ring finger comparison study was remarkable for a prolonged median peak latency compared to its ulnar counterpart. The left median to APB compound muscle action potential was remarkable for a prolonged distal latency. The right median to APB compound muscle action potential was unremarkable. The left ulnar to ADM compound muscle action potential was unremarkable. The right ulnar to ADM compound muscle action potential was unremarkable. The left ulnar to FDI compound muscle action potential was unremarkable. The right ulnar to FDI compound muscle action potential was unremarkable. Concentric needle EMG was performed in the bilateral upper extremities. No increased insertional activity, fibrillation potentials, fasciculation potentials or positive sharp waves were seen in any muscle tested. Motor unit action potentials demonstrated increased amplitude, duration and reduced recruitment in the bilateral pronator teres and the bilateral triceps brachii. All other muscles tested demonstrated normal morphology and firing pattern throughout. Impression: This is an abnormal study. 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 carpal tunnel syndrome, which is moderate in severity electrophysiologically on the left and mild to moderate in severity electrophysiologically on the right. There is also evidence of chronic, inactive, bilateral C7 radiculopathies with no evidence of active ongoing denervation at that level. There is no evidence of an active right or left-sided cervical radiculopathy on this study. All normal values/reference values for this study were taken from the [facility] reference values. This dictation was done by using the [employer] dictation system. It has been proofread but still may contain unrecognized voice recognition errors. [facility] [employer] [facility] CT HEAD OR BRAIN W/O CONTRAS Ton 03-06-2023 CT HEAD OR BRAIN W/O CONTRAST ORIGINAL EXAMINATION: CT OF THE HEAD WITHOUT CONTRAST 03/06/2023 12:06 am TECHNIQUE: CT of the head was performed without the administration of intravenous contrast. Automated exposure control, iterative reconstruction, and/or weight based adjustment of the mA/kV was utilized to reduce the radiation dose to as low as reasonably achievable. COMPARISON: CT head December 12, 2011 HISTORY: ORDERING SYSTEM PROVIDED HISTORY: Reason for Exam: pain; trauma patient FINDINGS: BRAIN/VENTRICLES: There is no acute intracranial hemorrhage, mass effect or midline shift. No abnormal extra-axial fluid collection. The sanders-white differentiation is maintained without evidence of an acute infarct. There is no evidence of hydrocephalus. Embolization coil in the distal basilar artery. ORBITS: The visualized portion of the orbits demonstrate no acute abnormality. SINUSES: The visualized paranasal sinuses and mastoid air cells demonstrate no acute abnormality. SOFT TISSUES/SKULL: No acute abnormality of the visualized skull or soft tissues. IMPRESSION: No acute intracranial hemorrhage. Interpreted by: Alejandro Mercer Preliminary Report By: Alejandro Mercer Electronically signed By Alejandro Mercer Dictated Date: 03/06/2023 12:12:16 AM Prelim Date: 03/06/2023 12:14:25 AM Sign Date: 03/06/2023 12:14:25 AM Ordering Provider: BELINDA [facility] ([place]) CT SPINE CERVICAL W/O JOVITAA Eve 03-06-2023 CT SPINE CERVICAL W/O CONTRAST ORIGINAL EXAMINATION: CT OF THE CERVICAL SPINE WITHOUT CONTRAST 03/06/2023 12:16 am TECHNIQUE: CT of the cervical spine was performed without the administration of intravenous contrast. Multiplanar reformatted images are provided for review. Automated exposure control, iterative reconstruction, and/or weight based adjustment of the mA/kV was utilized to reduce the radiation dose to as low as reasonably achievable. COMPARISON: None. HISTORY: ORDERING SYSTEM PROVIDED HISTORY: Reason for Exam: pain; trauma patient FINDINGS: BONES/ALIGNMENT: Reversal of the normal cervical lordosis due to positioning and degenerative changes. There is no acute fracture or traumatic malalignment. No interspinous widening, jumped, or perched facets. The patient is status post ACDF at C6-C7 with bony fusion at this level. No evidence of hardware failure. DEGENERATIVE CHANGES: Mild multilevel degenerative changes including endplate osteophyte formation and disc space height loss most pronounced at C5. Varying levels of foraminal stenosis. Facet and uncovertebral arthropathy. SOFT TISSUES: There is no prevertebral soft tissue swelling. Biapical emphysema. Dependent secretions within the trachea. IMPRESSION: No acute fracture or traumatic malalignment. I have personally reviewed the images of this examination and agree with the resident's findings and interpretation. Interpreted by: Alejandro Mercer Preliminary Report By: Beverly Miller Electronically signed By Alejandro Mercer Dictated Date: 03/06/2023 12:17:36 AM Prelim Date: 03/06/2023 12:28:40 AM Sign Date: 03/06/2023 12:33:41 AM Ordering Provider: BELINDA COVARRUBIAS [facility] ([place]) XR CLAVICLE RIGHTon 03-06-20 23 XR CLAVICLE RIGHT ORIGINAL EXAMINATION: 2 XRAY VIEWS OF THE RIGHT CLAVICLE 03/06/2023 12:32 am COMPARISON: None. HISTORY: ORDERING SYSTEM PROVIDED HISTORY: Reason for Exam: pain FINDINGS: No fracture. Partially imaged ACDF hardware. IMPRESSION: No fracture Interpreted by: Alejandro Mercer Preliminary Report By: Alejandro Mercer Electronically signed By Alejandro Mercer Dictated Date: 03/06/2023 12:33:52 AM Prelim Date: 03/06/2023 12:34:46 AM Sign Date: 03/06/2023 12:34:46 AM Ordering Provider: BELINDA MARCI [facility] ([place]) XR SHOULDER MINIMUM 2 VIEWS RIGHTon 03-06-2023 XR SHOULDER MINIMUM 2 VIEWS RIGHT ORIGINAL EXAMINATION: 4 XRAY VIEWS OF THE RIGHT SHOULDER 03/06/2023 12:32 am COMPARISON: None. HISTORY: ORDERING SYSTEM PROVIDED HISTORY: Reason for Exam: pain FINDINGS: No fracture or dislocation. Partially imaged ACDF hardware. IMPRESSION: No fracture or dislocation. Interpreted by: Alejandro Mercer Preliminary Report By: Alejandro Mercer Electronically signed By Alejandro Mercer Dictated Date: 03/06/2023 12:34:54 AM Prelim Date: 03/06/2023 12:35:36 AM Sign Date: 03/06/2023 12:35:36 AM Ordering Provider: BELINDA MARCI [facility] ([place]) CBC W Auto Differential pane l (Bld)Ordered By: Rudy Franco on 11-27-2022 Basophils (Bld) [#/Vol] 0.1 10*3/uL 0.0 - 0.2 10*3/uL [employer] Basophils/100 WBC (Bld) 1.2 % 0.0 - 2.0 % [facility] [employer] Eosinophils (Bld) [#/Vol] 0.2 10*3/uL 0.0 - 0.5 10*3/uL [facility] [employer] Eosinophils/100 WBC (Bld) 2.4 % 1.0 - 6.0 % [facility] [employer] Erythrocyte distribution width (RBC) [Ratio] 13.7 % 11.5 - 14.5 % [employer] Hematocrit (Bld) [Volume fraction] 36.4 % 35.0 - 47.0 % [employer] Hemoglobin (Bld) [Mass/Vol] 12.4 g/dL 11.7 - 16.0 g/dL [facility] [employer] Interpretation and review of laboratory results Abnormal [facility] [employer] Lymphocytes (Bld) [#/Vol] 3.0 10*3/uL 1.0 - 4.3 10*3/uL [facility] [employer] Lymphocytes/100 WBC (Bld) 42.5 % High 20.0 - 40.0 % [facility] [employer] MCH (RBC) [Entitic mass] 32.0 pg 26.0 - 34.0 pg [facility] MCHC (RBC) [Mass/Vol] 34.0 % 32.0 - 36.0 % [facility] MCV (RBC) [Entitic vol] 94.0 fL 80.0 - 98.0 fL [facility] Monocytes (Bld) [#/Vol] 0.6 10*3/uL 0.0 - 0.8 10*3/uL [facility] Monocytes/100 WBC (Bld) 8.2 % 2.0 - 10.0 % [facility] Neutrophils (Bld) [#/Vol] 3.2 10*3/uL 1.8 - 7.0 10*3/uL [facility] Neutrophils/100 WBC (Bld) 45.7 % 40.0 - 80.0 % [facility] Nucleated RBC/100 WBC (Bld) [Ratio] 0.2 % [facility] Platelet mean volume (Bld) [Entitic vol] 7.4 fL 7.4 - 12.4 fL [facility] Platelets (Bld) [#/Vol] 287 10*3/uL 140 - 440 10*3/uL [facility] RBC (Bld) [#/Vol] 3.87 10*6/uL 3.8 - 5.20 10*6/uL [facility] WBC (Bld) [#/Vol] 7.0 10*3/uL 3.6 - 10.7 10*3/uL [facility] Comprehensive metabolic 1998 panelon 11-27-2022 Albumin [Mass/Vol] 3.5 g/dL 3.5 - 5.0 g/dL [facility] ALP [Catalytic activity/Vol] 124 U/L 38 - 126 U/L [facility] ALT [Catalytic activity/Vol] 17 U/L 0 - 34 U/L [facility] Anion gap [Moles/Vol] 8 mmol/L 3 - 13 mmol/L [facility] AST [Catalytic activity/Vol] 37 U/L 15 - 46 U/L [facility] Bilirubin [Mass/Vol] 0.6 mg/dL 0.2 - 1 .3 mg/dL [facility] Calcium [Mass/Vol] 8.4 mg/dL 8.4 - 10. 4 mg/dL [facility] Chloride [Moles/Vol] 109 mmol/L High 98 - 10 7 mmol/L [facility] CO2 [Moles/Vol] 23 mmol/L 22 - 30 mmol/L [facility] Creatinine [Mass/Vol] 0.61 mg/dL 0.52 - 1.04 mg/dL [facility] GFR/1.73 sq M.predicted MDRD (S/P/Bld) [Vol rate/Area] - PINF [facility] Comment on above: Calculation based on the Chronic Kidney Disease Epidemiology Collaboration (CKD-EPI) equation refit without adjustment for race Glucose [Mass/Vol] 99 mg/dL 70 - 100 mg/dL [facility] Interpretation and review of laboratory results Abnormal [facility] Potassium [Moles/Vol] 3.8 mmol/L 3.5 - 5.1 mmol/L [facility] Protein [Mass/Vol] 6.1 g/dL Low 6.3 - 8.2 g/dL [facility] Sodium [Moles/Vol] 140 mmol/L 135 - 145 mmol/L [facility] Urea nitrogen [Mass/Vol] 16 mg/dL 7 - 17 mg/dL [facility] Slightly Hemolyzed. Interpret K+, ALKP, AST with caution. [facility] CBC W Auto Differential pane l (Bld)Ordered By: Lesly Singh on 11-26-2022 Basophils (Bld) [#/Vol] 0.0 10*3/uL 0.0 - 0.2 10*3/uL [facility] Basophils/100 WBC (Bld) 0.7 % 0.0 - 2.0 % [facility] Eosinophils (Bld) [#/Vol] 0.0 10*3/uL 0.0 - 0.5 10*3/uL [facility] Eosinophils/100 WBC (Bld) 0.3 % Low 1.0 - 6.0 % [facility] Erythrocyte distribution width (RBC) [Ratio] 13.5 % 11.5 - 14.5 % [facility] Hematocrit (Bld) [Volume fraction] 39.4 % 35.0 - 47.0 % [facility] Hemoglobin (Bld) [Mass/Vol] 12.7 g/dL 11.7 - 16.0 g/dL [facility] Interpretation and review of laboratory results Abnormal [facility] Lymphocytes (Bld) [#/Vol] 1.9 10*3/uL 1.0 - 4.3 10*3/uL [facility] Lymphocytes/100 WBC (Bld) 25.7 % 20.0 - 40.0 % [facility] MCH (RBC) [Entitic mass] 30.4 pg 26.0 - 34.0 pg [facility] MCHC (RBC) [Mass/Vol] 32.3 % 32.0 - 36.0 % [facility] MCV (RBC) [Entitic vol] 94.4 fL 80.0 - 98.0 fL [facility] Monocytes (Bld) [#/Vol] 0.7 10*3/uL 0.0 - 0.8 10*3/uL [facility] Monocytes/100 WBC (Bld) 9.0 % 2.0 - 10.0 % [facility] Neutrophils (Bld) [#/Vol] 4.8 10*3/uL 1.8 - 7.0 10*3/uL [facility] Neutrophils/100 WBC (Bld) 64.3 % 40.0 - 80.0 % [facility] Nucleated RBC/100 WBC (Bld) [Ratio] 0.0 % [facility] Platelet mean volume (Bld) [Entitic vol] 7.1 fL Low 7.4 - 12.4 fL [facility] Platelets (Bld) [#/Vol] 322 10*3/uL 140 - 440 10*3/uL [facility] RBC (Bld) [#/Vol] 4.18 10*6/uL 3.8 - 5.20 10*6/uL [facility] WBC (Bld) [#/Vol] 7.4 10*3/uL 3.6 - 10.7 10*3/uL [facility] Comprehensive metabolic 1998 panelon 11-26-2022 Albumin [Mass/Vol] 3.5 g/dL 3.5 - 5.0 g/dL [facility] ALP [Catalytic activity/Vol] 132 U/L High 38 - 126 U/L [facility] ALT [Catalytic activity/Vol] 14 U/L 0 - 34 U/L [facility] Anion gap [Moles/Vol] 6 mmol/L 3 - 13 mmol/L [facility] AST [Catalytic activity/Vol] 30 U/L 15 - 46 U/L [facility] Bilirubin [Mass/Vol] 0.5 mg/dL 0.2 - 1 .3 mg/dL [facility] Calcium [Mass/Vol] 8.6 mg/dL 8.4 - 10. 4 mg/dL [facility] Chloride [Moles/Vol] 113 mmol/L High 98 - 10 7 mmol/L [facility] CO2 [Moles/Vol] 19 mmol/L Low 22 - 30 mmol/L [facility] Creatinine [Mass/Vol] 0.51 mg/dL Low 0.52 - 1.04 mg/dL [facility] GFR/1.73 sq M.predicted MDRD (S/P/Bld) [Vol rate/Area] - PINF [facility] Comment on above: Calculation based on the Chronic Kidney Disease Epidemiology Collaboration (CKD-EPI) equation refit without adjustment for race Glucose [Mass/Vol] 89 mg/dL 70 - 100 mg/dL [facility] Interpretation and review of laboratory results Abnormal [facility] Potassium [Moles/Vol] 4.0 mmol/L 3.5 - 5.1 mmol/L [facility] Protein [Mass/Vol] 6.2 g/dL Low 6.3 - 8.2 g/dL [facility] Sodium [Moles/Vol] 138 mmol/L 135 - 145 mmol/L [facility] Urea nitrogen [Mass/Vol] 14 mg/dL 7 - 17 mg/dL [facility] HIV 1+2 Ab+HIV1 p24 Ag IA Ql on 11-26-2022 Interpretation and review of laboratory results Normal [facility] Laboratory - Drug toxicology on 11-26-2022 levETIRAcetam [Mass/Vol] ug/mL Low 10 - 40 ug/mL [facility] Comment on above: INTERPRETIVE INFORMA TION: Keppra (Levetiracetam) Therapeutic Range: 10-40 ug/mL Toxic: Not well Established Pharmacokinetics of levetiracetam are affected by renal function. Adverse effects may include somnolence, weakness, headache and vomiting. This levetiracetam (Keppra) immunoassay uses the [employer] reagents, which has known cross-reactivity with the drug brivaracetam (Briviact) and may report inaccurate results. Patients transitioning from levetiracetam to brivaracetam or those who are using both medications should not monitor drug concentrations with the [employer] assay. These patients should be monitored using a validated chromatographic methodology that distinguishes between drugs to determine drug concentrations. Performed By: [facility] [address] [place] [address] [employer] Tinter Maker: Clem Gregg MD, PhD Laboratory - Drug toxicology Ordered By: Dawit Maldonado on 11-26-2022 Amphetamines Ql (U) Negative Negative [facility] Benzodiazepines Ql (U) Negative Negative [facility] Cocaine Ql (U) Positive Negative [facility] Ethanol [Mass/Vol] Negative Negative [facility] Methadone Ql (U) Negative Negative [facility] Opiates Ql (U) Positive Negative [facility] Laboratory - Microbiology an d Antimicrobial susceptibilityon 11-26-2022 HIV 1+2 Ab+HIV1 p24 Ag IA Ql Non-Reactive Nonreactive [facility] Comment on above: The specimen was non -reactive for HIV-1 and HIV-2 antibodies and p24 antigen using an FDA-cleared 4th generation HIV test. Based on this non-reactive screen result, further reflexive testing was not indicated and was, therefore, not performed. Laboratory - Microbiology an d Antimicrobial susceptibilityOrdered By: Ricky Kincaid on 11-26-2022 Reagin Ab RPR Ql (S) Non-Reactive Nonreactive [facility] No Panel Informationon 11-26 Interpretation and review of laboratory results Abnormal [facility] No evidence of deep vein thrombosis in the right lower extremity. No evidence of deep vein or superficial vein thrombosis in the right lower extremity. Vessels demonstrate normal compressibility, color filling, and phasic and spontaneous flow. No evidence of deep vein thrombosis in the left lower extremity. No evidence of deep vein or superficial vein thrombosis in the left lower extremity. Vessels demonstrate normal compressibility, color filling, and phasic and spontaneous flow. Right Lower Venous No evidence of deep vein thrombosis in the right lower extremity. No evidence of deep vein or superficial vein thrombosis. The common femoral, saphenofemoral junction, femoral, popliteal, gastrocnemius, soleal, greater saphenous, posterior tibial, and peroneal veins were imaged in the transverse view and showed normal compressibility. The common femoral, middle femoral, and popliteal veins were imaged in the longitudinal view and showed normal color filling and normal phasic and spontaneous flow. Left Lower Venous No evidence of deep vein thrombosis in the left lower extremity. No evidence of deep vein or superficial vein thrombosis. The common femoral, saphenofemoral junction, femoral, popliteal, gastrocnemius, soleal, greater saphenous, posterior tibial, and peroneal veins were imaged in the transverse view and showed normal compressibility. The common femoral, middle femoral, and popliteal veins were imaged in the longitudinal view and showed normal color filling and normal phasic and spontaneous flow. Respiratory Manager Details A sanders scale, color Doppler imaging and spectral Doppler analysis ultrasound was performed. During the study longitudinal and transverse views were obtained. Pulsed wave doppler was performed. The exam was performed with the patient in the supine position. Overall the study quality was adequate. Study was technically difficult due to: diffuse subcutaneous edema. CV CPACS No Panel InformationOrdered By: Dawit Maldonado on 11-26-2022 BARBITURATES Negative Negative [facility] BUPRENORPHINE SCREEN Negative Negative [facility] FENTANYL Positive Negative [facility] OXYCODONE/OXYMORPHONE Positive Negative [facility] PCP Negative Negative [facility] THC Negative Negative [facility] The expected value f or the drugs listed above is Negative. The following drugs or drug groups have been screened for by Immunoassay at the following thresholds: Amphetamine class(1000ng/mL) Barbituates(200ng/mL) Benzodiazepines(200ng/m L) Cocaine(300ng/mL) Ethanol (50 ng/mL) Methadone(300ng/mL) Opiates(300ng/mL) Oxycodone(100ng/mL) PCP(25ng/mL) Buprenorphine(5ng/mL) THC(50ng/mL) Fentanyl(1ng/mL) Positive results are NOT confirmed by a more specific alternative method unless requested. If confirmation is needed, request confirmation under separate order. NOTE: These results are for medical treatment only. Analysis performed using non-forensic procedures. [facility] Reagin Ab RPR Ql (S)Ordered By: Ricky Kincaid on 11-26-2022 Interpretation and review of laboratory results Normal [facility] US Heart TransthoracicOrdere d By: Gem Shearer on 11-26-2022 Ao Root Index 1.57 cm/m2 [facility] Work Phone: Aortic Root 3.0 cm [facility] Work Phone: Ascending Aorta 2.5 cm [facility] Work Phone: Ascending Aorta Index 1.31 cm/m2 [facility] Work Phone: E/E' Lateral 5.82 [facility] [employer] Work Phone: [phone] E/E' Ratio (Averaged) 5.82 [facility] [employer] Work Phone: [phone] E/E' Septal 5.82 [facility] [employer] Work Phone: [phone] EF BP 58 % 55 - 100 % [facility] [employer] Work Phone: Fractional Shortening 2D 21 % 28 - 44 % [facility] [employer] Work Phone: Interpretation and review of laboratory results Abnormal [facility] [employer] Work Phone: [phone] IVSd 1.0 cm Abnormal 0.6 - 0.9 cm [facility] [employer] Work Phone: [phone] LA Diameter 3.2 cm [facility] [employer] [employer] Work Phone: [phone] LA Size Index 1.68 cm/m2 [facility] [employer] Work Phone: LA Volume 2C 59 mL Abnormal 22 - 52 mL [facility] [employer] Work Phone: LA Volume 4C 31 mL 22 - 52 mL [facility] [employer] Work Phone: [phone] LA Volume A/L 54 mL [facility] Work Phone: LA Volume BP 46 mL 22 - 52 mL [facility] [employer] Work Phone: LA Volume Index 2C 31 mL/m2 16 - 34 mL/m2 [facility] [employer] Work Phone: LA Volume Index 4C 16 mL/m2 16 - 34 mL/m2 [facility] [employer] Work Phone: LA Volume Index A/L 28 mL/m2 16 - 34 mL/m2 [facility] [employer] Work Phone: [phone] LA Volume Index BP 24 ml/m2 16 - 34 ml/m2 [facility] [employer] Work Phone: LA/AO Root Ratio 1.07 [facility] Work Phone: LV E' Lateral Velocity 11 cm/s [facility] Work Phone: [phone] LV E' Septal Velocity 11 cm/s [facility] [employer] Work Phone: LV EDV A2C 117 mL [facility] Work Phone: [phone] LV EDV A4C 85 mL [facility] Work Phone: [phone] LV EDV BP 108 mL Abnormal 56 - 104 mL [facility] Work Phone: [phone] LV EDV Index A2C 61 mL/m2 [facility] Work Phone: [phone] LV EDV Index A4C 45 mL/m2 [facility] Work Phone: [phone] LV EDV Index BP 57 mL/m2 [facility] Work Phone: [phone] LV Ejection Fraction A2C 62 % [facility] Work Phone: [phone] LV Ejection Fraction A4C 53 % [facility] Work Phone: [phone] LV ESV A2C 45 mL [facility] Work Phone: [phone] LV ESV A4C 40 mL [facility] Work Phone: [phone] LV ESV BP 45 mL 19 - 49 mL [facility] Work Phone: [phone] LV ESV Index A2C 24 mL/m2 [facility] Work Phone: [phone] LV ESV Index A4C 21 mL/m2 [facility] Work Phone: [phone] LV ESV Index BP 24 mL/m2 [facility] Work Phone: [phone] LV Mass 2D 158.8 g 67 - 162 g [facility] Work Phone: LV Mass 2D Index 83.2 g/m2 43 - 95 g/m2 [facility] Work Phone: [phone] LV RWT Ratio 0.38 [facility] Work Phone: [phone] LVIDd 4.8 cm 3.9 - 5.3 cm [facility] Work Phone: LVIDd Index 2.51 cm/m2 [facility] Work Phone: [phone] LVIDs 3.8 cm [facility] Work Phone: [phone] LVIDs Index 1.99 cm/m2 [facility] Work Phone: [phone] LVOT Area 4.5 cm2 [facility] Work Phone: LVOT Cardiac Output 3.7 liter/minute [facility] [employer] Work Phone: [phone] LVOT Diameter 2.4 cm [facility] [employer] Work Phone: [phone] LVOT Mean Gradient 1 mmHg [facility] [employer] Work Phone: [phone] LVOT Peak Gradient 2 mmHg [facility] [employer] Work Phone: [phone] LVOT Peak Velocity 0.6 m/s [facility] [employer] Work Phone: [phone] LVOT Stroke Volume Index 31.5 mL/m2 [facility] [employer] Work Phone: [phone] LVOT SV 60.1 ml [facility] [employer] Work Phone: [phone] LVOT VTI 13.3 cm [facility] [employer] Work Phone: [phone] LVPWd 0.9 cm 0.6 - 0.9 cm [facility] [employer] Work Phone: [phone] MV A Velocity 0.43 m/s [facility] [employer] Work Phone: [phone] MV E Velocity 0.64 m/s [facility] [employer] Work Phone: [phone] MV E Wave Deceleration Time 129.1 ms [facility] [employer] Work Phone: [phone] MV E/A 1.49 [facility] [employer] Work Phone: [phone] RV Basal Dimension 2.9 cm [facility] [employer] Work Phone: [phone] RV Longitudinal Dimension 5.8 cm [facility] [employer] Work Phone: [phone] RV Mid Dimension 2.3 cm [facility] Work Phone: [phone] TAPSE 1.4 cm Abnormal 1.7 cm [facility] Work Phone: [phone] [facility] [employer] Work Phone: [phone] US Heart Transthoracicon Left Ventricle: Left ventricle size is normal. Normal wall thickness. Normal left ventricular systolic function. EF by 2D [employer] Biplane is 58%. Normal wall motion. Right Ventricle: Right ventricle size is normal. Normal systolic function. No significant valvular abnormalities. Left Ventricle Left ventricle size is normal. Normal wall thickness. Normal left ventricular systolic function. EF by 2D [employer] Biplane is 58%. Normal wall motion. Right Ventricle Right ventricle size is normal. Normal systolic function. Left Atrium Left atrium size is normal. Right Atrium Right atrium size is normal. IVC/SVC IVC diameter is normal and decreases greater than 50% during inspiration; therefore the estimated right atrial pressure is normal (~3 mmHg). Mitral Valve Valve structure is normal. No regurgitation. No stenosis noted. Tricuspid Valve Valve structure is normal. Trace regurgitation. Aortic Valve Trileaflet. No cusp thickening. No cusp calcification. No regurgitation. No stenosis. Pulmonic Valve Valve structure is normal. Trace regurgitation. Ascending Aorta Normal sized sinuses of Valsalva and ascending aorta. Pericardium No pericardial effusion. Septum No interatrial shunt visualized on color Doppler. Study Details Image quality: fair. Blood pressure: 133/79 mmHg. No contrast was given. Echo Additional Conclusions No significant valvular abnormalities. CV CPACS Basic metabolic 1998 panelon 11-25-2022 Anion gap [Moles/Vol] 8 mmol/L 3 - 13 mmol/L [facility] Calcium [Mass/Vol] 9.3 mg/dL 8.4 - 10. 4 mg/dL [facility] Chloride [Moles/Vol] 107 mmol/L 98 - 10 7 mmol/L [facility] CO2 [Moles/Vol] 26 mmol/L 22 - 30 mmol/L [facility] Creatinine [Mass/Vol] 0.61 mg/dL 0.52 - 1.04 mg/dL [facility] GFR/1.73 sq M.predicted MDRD (S/P/Bld) [Vol rate/Area] - PINF [facility] Comment on above: Calculation based on the Chronic Kidney Disease Epidemiology Collaboration (CKD-EPI) equation refit without adjustment for race Glucose [Mass/Vol] 108 mg/dL High 70 - 100 mg/dL [facility] Interpretation and review of laboratory results Abnormal [facility] Potassium [Moles/Vol] 3.7 mmol/L 3.5 - 5.1 mmol/L [facility] Sodium [Moles/Vol] 141 mmol/L 135 - 145 mmol/L [facility] Urea nitrogen [Mass/Vol] 14 mg/dL 7 - 17 mg/dL [facility] CBC W Auto Differential pane l (Bld)Ordered By: Janene Rubio on 11-25-2022 Basophils (Bld) [#/Vol] 0.0 10*3/uL 0.0 - 0.2 10*3/uL [facility] Basophils/100 WBC (Bld) 0.7 % 0.0 - 2.0 % [facility] Eosinophils (Bld) [#/Vol] 0.1 10*3/uL 0.0 - 0.5 10*3/uL [facility] Eosinophils/100 WBC (Bld) 1.6 % 1.0 - 6.0 % [facility] Erythrocyte distribution width (RBC) [Ratio] 13.8 % 11.5 - 14.5 % [facility] Hematocrit (Bld) [Volume fraction] 47.5 % High 35.0 - 47.0 % [facility] Hemoglobin (Bld) [Mass/Vol] 15.7 g/dL 11.7 - 16.0 g/dL [facility] Interpretation and review of laboratory results Abnormal [facility] Lymphocytes (Bld) [#/Vol] 1.1 10*3/uL 1.0 - 4.3 10*3/uL [facility] Lymphocytes/100 WBC (Bld) 16.8 % Low 20.0 - 40.0 % [facility] MCH (RBC) [Entitic mass] 31.0 pg 26.0 - 34.0 pg [facility] MCHC (RBC) [Mass/Vol] 33.1 % 32.0 - 36.0 % [facility] MCV (RBC) [Entitic vol] 93.8 fL 80.0 - 98.0 fL [facility] Monocytes (Bld) [#/Vol] 0.5 10*3/uL 0.0 - 0.8 10*3/uL [facility] Monocytes/100 WBC (Bld) 7.8 % 2.0 - 10.0 % [facility] Neutrophils (Bld) [#/Vol] 4.7 10*3/uL 1.8 - 7.0 10*3/uL [facility] Neutrophils/100 WBC (Bld) 73.1 % 40.0 - 80.0 % [facility] Nucleated RBC/100 WBC (Bld) [Ratio] 0.2 % [facility] Platelet mean volume (Bld) [Entitic vol] 7.4 fL 7.4 - 12.4 fL [facility] Platelets (Bld) [#/Vol] 328 10*3/uL 140 - 440 10*3/uL [facility] [employer] RBC (Bld) [#/Vol] 5.06 10*6/uL 3.8 - 5.20 10*6/uL [facility] [employer] WBC (Bld) [#/Vol] 6.5 10*3/uL 3.6 - 10.7 10*3/uL [facility] CT Abdomen and Pelvis W cont rast [facility] 11-25-2022 Patient Name: ORTIZ JACOBS : 1970 [facility]#: [id number] Exam Date/Time: 11/25/2022 17:49 Procedure: CT ABDOMEN PELVIS W CONTRAST Ordering Provider: VICKERS DOUGLAS Reason For Exam: concern for intra abdominal infection causing vomiting/diarrhea EXAMINATION: CT CHEST ANGIOGRAM W AND/OR WO IV CONTRAST, CT ABDOMEN PELVIS W CONTRAST CLINICAL HISTORY: Chest pain, nonspecific. Concern for intra-abdominal infection causing vomiting and diarrhea. COMPARISON: None. TECHNIQUE: 1. Axial images of the chest were obtained from above the lung apices through the level of the adrenal glands during the bolus administration of intravenous contrast. Multiplanar and 3D maximum intensity projection reformulation's were created from the raw CT data which were interpreted in conjunction with the axial images to render the findings listed below. 2. Heical CT of the abdomen and pelvis with IV contrast. Dose reduction was employed with automated exposure control. FINDINGS: Exam Quality: Overall exam quality is poor. Pulmonary arterial enhancement is suboptimal, the breath hold is optimal, and there are no significant artifacts impacting image quality. Pulmonary Arteries: There are no filling defects within the pulmonary arterial system to suggest pulmonary embolus, to the segmental level. Cardiovasculature: Normal Mediastinum/Pericardium : Unremarkable Pleura: Unremarkable Central Airways: Widely patent Lungs: Mild centrilobular and paraseptal emphysema bilaterally. No lung consolidation. Nodules: No nodules are present that require follow up. Lymph Nodes: No thoracic lymphadenopathy is evident. Visualized musculoskeletal structures: No acute fracture or destructive osseous lesion is identified. CT ABDOMEN AND PELVIS: Hepatobiliary: The liver is unremarkable. The patient is status post cholecystectomy. Intra and extrahepatic biliary prominence is present which likely relates to prior cholecystectomy. Pancreas: Unremarkable Spleen: Unremarkable Adrenal Glands: Unremarkable Kidneys and ureters: No calculi or hydroureteronephrosis. Multiple renal cysts are present. Abdominal vasculature: Unremarkable GI tract: No evidence of obstruction. Colonic diverticulosis is present without evidence for diverticulitis. Small hiatal hernia. There are 2 implanted stimulator electrodes which are positioned along the anterior wall of the body of the stomach. Peritoneum and retroperitoneum: No free fluid or free air is noted. Lymph Nodes: No abdominal lymphadenopathy is evident. Pelvis: Unremarkable Visualized musculoskeletal structures: Status post L3-S1 posterior instrumented fusion, L3-4 anterior interbody fusion, and L3-L5 laminectomies. No acute osseous findings. [facility] Agustina Zarate M D - 11/25/2022 Patient Name: ORTIZ JACOBS : 1970 Exam Date/Time: 11/25/2022 17:49 Procedure: CT ABDOMEN PELVIS W CONTRAST Ordering Provider: VICKERS DOUGLAS Reason For Exam: concern for intra abdominal infection causing vomiting/diarrhea EXAMINATION: CT CHEST ANGIOGRAM W AND/OR WO IV CONTRAST, CT ABDOMEN PELVIS W CONTRAST CLINICAL HISTORY: Chest pain, nonspecific. Concern for intra-abdominal infection causing vomiting and diarrhea. COMPARISON: None. TECHNIQUE: 1. Axial images of the chest were obtained from above the lung apices through the level of the adrenal glands during the bolus administration of intravenous contrast. Multiplanar and 3D maximum intensity projection reformulation's were created from the raw CT data which were interpreted in conjunction with the axial images to render the findings listed below. 2. Heical CT of the abdomen and pelvis with IV contrast. Dose reduction was employed with automated exposure control. FINDINGS: Exam Quality: Overall exam quality is poor. Pulmonary arterial enhancement is suboptimal, the breath hold is optimal, and there are no significant artifacts impacting image quality. Pulmonary Arteries: There are no filling defects within the pulmonary arterial system to suggest pulmonary embolus, to the segmental level. Cardiovasculature: Normal Mediastinum/Pericardium : Unremarkable Pleura: Unremarkable Central Airways: Widely patent Lungs: Mild centrilobular and paraseptal emphysema bilaterally. No lung consolidation. Nodules: No nodules are present that require follow up. Lymph Nodes: No thoracic lymphadenopathy is evident. Visualized musculoskeletal structures: No acute fracture or destructive osseous lesion is identified. CT ABDOMEN AND PELVIS: Hepatobiliary: The liver is unremarkable. The patient is status post cholecystectomy. Intra and extrahepatic biliary prominence is present which likely relates to prior cholecystectomy. Pancreas: Unremarkable Spleen: Unremarkable Adrenal Glands: Unremarkable Kidneys and ureters: No calculi or hydroureteronephrosis. Multiple renal cysts are present. Abdominal vasculature: Unremarkable GI tract: No evidence of obstruction. Colonic diverticulosis is present without evidence for diverticulitis. Small hiatal hernia. There are 2 implanted stimulator electrodes which are positioned along the anterior wall of the body of the stomach. Peritoneum and retroperitoneum: No free fluid or free air is noted. Lymph Nodes: No abdominal lymphadenopathy is evident. Pelvis: Unremarkable Visualized musculoskeletal structures: Status post L3-S1 posterior instrumented fusion, L3-4 anterior interbody fusion, and L3-L5 laminectomies. No acute osseous findings. IMPRESSION: 1. No PE identified. PE cannot be evaluated beyond the segmental level due to the limitations above. 2. Mild emphysematous changes in the lungs. No acute cardiopulmonary abnormalities. 3. No acute intra-abdominal abnormalities. Report Dictated on Electronically Signed By: Agustina Zarate Electronically Signed Date/Time: 11/25/2022 6:06 PM EDT [facility] CT Head WO contraston 2022 No acute intracranial abnormalities. Report Dictated on Electronically Signed By: Agustina Zarate Electronically Signed Date/Time: 11/25/2022 5:52 PM EDT [employer] [facility] 1970 [id number] Exam Date/Time: 11/25/2022 17:49 Procedure: CT HEAD WO IV CONTRAST Ordering Provider: VICKERS DOUGLAS Reason For Exam: Seizure disorder, clinical change CT HEAD WITHOUT CONTRAST CLINICAL HISTORY: Seizure disorder, clinical change COMPARISON: 06/17/2015 TECHNIQUE: Helical CT of the brain without contrast. FINDINGS: Acute Findings: No hemorrhage, mass, or infarct. 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 Ventricles and sulci: Within normal limits for age. Other: Mild paranasal sinus mucosal thickening. Small amounts of fluid in the sinuses. No acute osseous abnormalities. [facility] Agustina Zarate M D - 11/25/2022 Patient Name: ORTIZ [facility] 1970 [id number] Exam Date/Time: 11/25/2022 17:49 Procedure: CT HEAD WO IV CONTRAST Ordering Provider: VICKERS DOUGLAS Reason For Exam: Seizure disorder, clinical change CT HEAD WITHOUT CONTRAST CLINICAL HISTORY: Seizure disorder, clinical change COMPARISON: 06/17/2015 TECHNIQUE: Helical CT of the brain without contrast. FINDINGS: Acute Findings: No hemorrhage, mass, or infarct. 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 Ventricles and sulci: Within normal limits for age. Other: Mild paranasal sinus mucosal thickening. Small amounts of fluid in the sinuses. No acute osseous abnormalities. IMPRESSION: No acute intracranial abnormalities. Report Dictated on Electronically Signed By: Agustina Zarate Electronically Signed Date/Time: 11/25/2022 5:52 PM EDT [employer] [employer] CT Head WO contrastOrdered B y: Agustina Zarate on 11-25-2022 [employer] Work Phone: CTA Chest vessels WO and W c ontrast [facility] 11-25-2022 [facility] Name: ORTI[facility]BS [facility] 1970 [id number] Exam Date/Time: 11/25/2022 17:49 Procedure: CT CHEST ANGIOGRAM W AND/OR WO IV CONTRAST Ordering Provider: VICKERS DOUGLAS Reason For Exam: Chest pain, nonspecific EXAMINATION: CT CHEST ANGIOGRAM W AND/OR WO IV CONTRAST, CT ABDOMEN PELVIS W CONTRAST CLINICAL HISTORY: Chest pain, nonspecific. Concern for intra-abdominal infection causing vomiting and diarrhea. COMPARISON: None. TECHNIQUE: 1. Axial images of the chest were obtained from above the lung apices through the level of the adrenal glands during the bolus administration of intravenous contrast. Multiplanar and 3D maximum intensity projection reformulation's were created from the raw CT data which were interpreted in conjunction with the axial images to render the findings listed below. 2. Heical CT of the abdomen and pelvis with IV contrast. Dose reduction was employed with automated exposure control. FINDINGS: Exam Quality: Overall exam quality is poor. Pulmonary arterial enhancement is suboptimal, the breath hold is optimal, and there are no significant artifacts impacting image quality. Pulmonary Arteries: There are no filling defects within the pulmonary arterial system to suggest pulmonary embolus, to the segmental level. Cardiovasculature: Normal Mediastinum/Pericardium : Unremarkable Pleura: Unremarkable Central Airways: Widely patent Lungs: Mild centrilobular and paraseptal emphysema bilaterally. No lung consolidation. Nodules: No nodules are present that require follow up. Lymph Nodes: No thoracic lymphadenopathy is evident. Visualized musculoskeletal structures: No acute fracture or destructive osseous lesion is identified. CT ABDOMEN AND PELVIS: Hepatobiliary: The liver is unremarkable. The patient is status post cholecystectomy. Intra and extrahepatic biliary prominence is present which likely relates to prior cholecystectomy. Pancreas: Unremarkable Spleen: Unremarkable Adrenal Glands: Unremarkable Kidneys and ureters: No calculi or hydroureteronephrosis. Multiple renal cysts are present. Abdominal vasculature: Unremarkable GI tract: No evidence of obstruction. Colonic diverticulosis is present without evidence for diverticulitis. Small hiatal hernia. There are 2 implanted stimulator electrodes which are positioned along the anterior wall of the body of the stomach. Peritoneum and retroperitoneum: No free fluid or free air is noted. Lymph Nodes: No abdominal lymphadenopathy is evident. Pelvis: Unremarkable Visualized musculoskeletal structures: Status post L3-S1 posterior instrumented fusion, L3-4 anterior interbody fusion, and L3-L5 laminectomies. No acute osseous findings. [facility] Agustina Zarate M D - 11/25/2022 Patient Name: ORTIZ JACOBS : 1970 Exam Date/Time: 11/25/2022 17:49 Procedure: CT CHEST ANGIOGRAM W AND/OR WO IV CONTRAST Ordering Provider: VICKERS DOUGLAS Reason For Exam: Chest pain, nonspecific EXAMINATION: CT CHEST ANGIOGRAM W AND/OR WO IV CONTRAST, CT ABDOMEN PELVIS W CONTRAST CLINICAL HISTORY: Chest pain, nonspecific. Concern for intra-abdominal infection causing vomiting and diarrhea. COMPARISON: None. TECHNIQUE: 1. Axial images of the chest were obtained from above the lung apices through the level of the adrenal glands during the bolus administration of intravenous contrast. Multiplanar and 3D maximum intensity projection reformulation's were created from the raw CT data which were interpreted in conjunction with the axial images to render the findings listed below. 2. Heical CT of the abdomen and pelvis with IV contrast. Dose reduction was employed with automated exposure control. FINDINGS: Exam Quality: Overall exam quality is poor. Pulmonary arterial enhancement is suboptimal, the breath hold is optimal, and there are no significant artifacts impacting image quality. Pulmonary Arteries: There are no filling defects within the pulmonary arterial system to suggest pulmonary embolus, to the segmental level. Cardiovasculature: Normal Mediastinum/Pericardium : Unremarkable Pleura: Unremarkable Central Airways: Widely patent Lungs: Mild centrilobular and paraseptal emphysema bilaterally. No lung consolidation. Nodules: No nodules are present that require follow up. Lymph Nodes: No thoracic lymphadenopathy is evident. Visualized musculoskeletal structures: No acute fracture or destructive osseous lesion is identified. CT ABDOMEN AND PELVIS: Hepatobiliary: The liver is unremarkable. The patient is status post cholecystectomy. Intra and extrahepatic biliary prominence is present which likely relates to prior cholecystectomy. Pancreas: Unremarkable Spleen: Unremarkable Adrenal Glands: Unremarkable Kidneys and ureters: No calculi or hydroureteronephrosis. Multiple renal cysts are present. Abdominal vasculature: Unremarkable GI tract: No evidence of obstruction. Colonic diverticulosis is present without evidence for diverticulitis. Small hiatal hernia. There are 2 implanted stimulator electrodes which are positioned along the anterior wall of the body of the stomach. Peritoneum and retroperitoneum: No free fluid or free air is noted. Lymph Nodes: No abdominal lymphadenopathy is evident. Pelvis: Unremarkable Visualized musculoskeletal structures: Status post L3-S1 posterior instrumented fusion, L3-4 anterior interbody fusion, and L3-L5 laminectomies. No acute osseous findings. IMPRESSION: 1. No PE identified. PE cannot be evaluated beyond the segmental level due to the limitations above. 2. Mild emphysematous changes in the lungs. No acute cardiopulmonary abnormalities. 3. No acute intra-abdominal abnormalities. Report Dictated on Electronically Signed By: Agustina Zarate Electronically Signed Date/Time: 11/25/2022 6:06 PM EDT [employer] [employer] Fibrin D-dimer FEU (PPP) [Ma ss/Vol]on 11-25-2022 Interpretation and review of laboratory results Abnormal [facility] D-Dimer values of <0.50 mg/L FEU can be used in combination with a pre-test probability model (e.g. Well's) to exclude pulmonary embolism (PE) disease, as well as an aid in the diagnosis of deep vein thrombosis (DVT). [facility] Hepatic function 2000 panelo n 11-25-2022 Albumin [Mass/Vol] 4.4 g/dL 3.5 - 5.0 g/dL [facility] ALP [Catalytic activity/Vol] 197 U/L High 38 - 126 U/L [facility] ALT [Catalytic activity/Vol] 19 U/L 0 - 34 U/L [facility] AST [Catalytic activity/Vol] 38 U/L 15 - 46 U/L [facility] Bilirubin [Mass/Vol] 0.6 mg/dL 0.2 - 1 .3 mg/dL [facility] Bilirubin.conjugated [Mass/Vol] 0.0 mg/dL 0.0 - 0.3 mg/dL [facility] Interpretation and review of laboratory results Abnormal [facility] Protein [Mass/Vol] 7.7 g/dL 6.3 - 8.2 g/dL [facility] Laboratory - Chemistry and C hemistry - challengeon 11-25-2022 Cobalamin (Vitamin B12) [Mass/Vol] 642 pg/mL 239 - 931 pg/mL [facility] Folate [Mass/Vol] ng/mL 2.9 - PINF ng/mL [facility] TSH Qn 0.870 m[IU]/L [facility] Prolactin [Mass/Vol] 6.7 ng/mL 2.8 - 2 7.0 ng/mL [facility] HCG.beta subunit Qn Females < 5 mIU/mL [facility] Troponin I.cardiac [Mass/Vol] ng/mL 0.000 - 0.034 ng/mL [facility] Lactate [Moles/Vol] 1.1 mmol/L 0.7 - 2. 0 mmol/L [facility] Laboratory - Coagulationon 0 11-25-2022 Fibrin D-dimer FEU (PPP) [Mass/Vol] 1.15 mg/L High NINF - 0.50 mg/L [facility] No Panel Informationon 11-25 Interpretation and review of laboratory results Normal [facility] 1. No PE identified. PE cannot be evaluated beyond the segmental level due to the limitations above. 2. Mild emphysematous changes in the lungs. No acute cardiopulmonary abnormalities. 3. No acute intra-abdominal abnormalities. Report Dictated on Electronically Signed By: Agusitna Zarate Electronically Signed Date/Time: 11/25/2022 6:06 PM EDT [facility] Radiology Study observation (narrative) [facility] Interpretation and review of laboratory results Normal [facility] Values below 35 ng/m L may be of doubtful significance. Recommend send-out testing to rule out macroprolactin to confirm the result. [facility] Values in should double every 2 to 3 days for the first 6 weeks. Elevated concentrations of human chorionic gonadotropin (hCG) measured in the first trimester of are observed in normal , but may serve as an indication of chorionic carcinoma, hydatiform mole, or multiple . Decreasing hCG concentrations indicate threatened or missed , recent termination of , ectopic , gestosis or intrauterine . Zoey- and postmenopausal females may have detectable hCG concentrations (< or = to 14 mIU/mL) due to pituitary production of hCG. Serum follicle-stimulating hormone measurement may aid in ruling-out in this population. Cutoffs of greater than 20 to 45 mIU/mL have been suggested and are method dependent. False-elevations (called phantom human chorionic gonadotropin: hCG) may occur with patients who have human antianimal or heterophilic antibodies. Some specimens may not dilute linearly due to abnormal forms of hCG. Elevated hCG concentrations not associated with are found in patients with other diseases such as tumors of the germ cells, ovaries, bladder, pancreas, stomach, lungs, and liver. This test is not intended to detect or monitor tumors or gestational trophoblastic disease. [facility] Interpretation and review of laboratory results Normal [facility] P Josephine 74 degrees [facility] RI Interval 142 ms [facility] QRS Josephine 78 degrees [facility] QRSD [facility]val [facility] Inter[facility] 362 ms [facility] QTC Interval 484 ms [facility] T Wave Josephine 72 degrees [facility] EKG shows sinus tachycardia, normal axis, normal intervals, no STEMI, no SVT. Borderline LVH. Previous EKG shows NSR with diffuse inferior and lateral T waves which are not present today. Electronically Signed On 11-25-2022 10:19:18 EDT by Earl Vickers CV Earl Dudley MD - 11/25/2022 IMPRESSION: EKG shows sinus tachycardia, normal axis, normal intervals, no STEMI, no SVT. Borderline LVH. Previous EKG shows NSR with diffuse inferior and lateral T waves which are not present today. Electronically Signed On 11-25-2022 10:19:18 EDT by Earl Vickers [facility] Respiratory pathogens DNA an d RNA panel KRISTEN+probe (Nph)on 11-25-2022 Adenovirus Not detected Not Detected [facility] B. pertussis DNA KRISTEN+probe Ql (Unsp spec) Not detected Not Detected [facility] Bordetella parapertussis Not detected Not Detected [facility] Chlamydia pneumoniae Not detected Not Detected [facility] Coronavirus 229E Not detected Not Detected [facility] Coronavirus HKU1 Not detected Not Detected [facility] Coronavirus NL63 Not detected Not Detected [facility] Coronavirus OC43 Not detected Not Detected [facility] FLUAV RNA KRISTEN+non-probe Ql (Nph) Not detected Not Detected [facility] FLUBV RNA KRISTEN+non-probe Ql (Nph) Not detected Not Detected [facility] Human Metapneumovirus Not detected Not Detected [facility] Human Rhinovirus/Enterovirus Not detected Not Detected [facility] Interpretation and review of laboratory results Normal [facility] Mycoplasma pneumoniae Not detected Not Detected [facility] Parainfluenza 1 Not detected Not Detected [facility] Parainfluenza 2 Not detected Not Detected [facility] Parainfluenza 3 Not detected Not Detected [facility] Parainfluenza 4 Not detected Not Detected [facility] Respiratory Syncytial Virus Not detected Not Detected [facility] SARS-CoV-2 (COVID-19) RNA KRISTEN+non-probe Ql (Nph) Not detected Not Detected [facility] Methodology: Multipl ex PCR [facility] TSH Qnon 11-25-2022 Interpretation and review of laboratory results Normal [facility] Troponin I.cardiac [Mass/Vol ]on 11-25-2022 Interpretation and review of laboratory results Normal [facility] Patients with high levels of Biotin oral intake (ie >5 mg/day) may have falsely decreased Troponin levels. [facility] Vital signson 11-25-2022 Heart rate 107 /min bpm [facility] XR Chest Single viewon 11-25 Impression: No acute cardiopulmonary process. Report Dictated on Electronically Signed By: Rudy Valero Electronically Signed Date/Time: 11/25/2022 1:23 PM EDT [facility] Patient Name: ORTIZ JACOBS : 1970 Exam Date/Time: 11/25/2022 13:04 Procedure: XR CHEST 1 VIEW Ordering Provider: VICKERS DOUGLAS Reason For Exam: syncope Examination: Frontal chest Clinical Indication: syncope Comparison: 10/30/2022 Findings: Lungs appear normally inflated. There is no focal consolidation, effusion, or pulmonary edema identified. The cardiomediastinal silhouette is within normal limits. There is no evidence of acute osseous abnormality. Lower cervical fusion hardware plate. Minimal thoracic scoliosis apex rightward. [facility] Rudy Valero MD - 11/25/2022 Patient Name: ORTIZ JACOBS : 1970 Exam Date/Time: 11/25/2022 13:04 Procedure: XR CHEST 1 VIEW Ordering Provider: VICKERS DOUGLAS Reason For Exam: syncope Examination: Frontal chest Clinical Indication: syncope Comparison: 10/30/2022 Findings: Lungs appear normally inflated. There is no focal consolidation, effusion, or pulmonary edema identified. The cardiomediastinal silhouette is within normal limits. There is no evidence of acute osseous abnormality. Lower cervical fusion hardware plate. Minimal thoracic scoliosis apex rightward. IMPRESSION: Impression: No acute cardiopulmonary process. Report Dictated on Electronically Signed By: Rudy Valero Electronically Signed Date/Time: 11/25/2022 1:23 PM EDT [facility] Radiology Study observation (narrative) Gissel Coronado [facility] XR Chest Single viewOrdered By: Rudy aVlero on 11-25-2022 [facility] [employer] Work Phone: Absolute lymphocyte countOrd ered By: Alfredito Guerrero on 11-16-2022 Lymphocytes Auto (Unsp spec) [#/Vol] 4.45 10*3/uL 0.83-4.51 [facility] Basophil percentageOrdered B y: Alfredito Guerrero on 11-16-2022 Basophils/100 WBC (Bld) 0.6 % 0-1 [facility] Eosinophils/100 WBC (Bld) 1.1 % 0-5 [facility] Lactate [Moles/Vol] 0.9 mmol/L 0.4-2.0 [facility] Neutrophils (Bld) [#/Vol] 7.7 10*3/uL 2.0-7.7 [facility] Neutrophils/100 WBC (Bld) 54.4 % 47-70 [facility] WBC (Bld) [#/Vol] 14.1 10*3/uL 4.4-11.0 [facility] Blood erythrocytes count (nu mber/volume)Ordered By: Alfredito Guerrero on 11-16-2022 RBC (Bld) [#/Vol] 4.54 10*6/uL 4.2-5.4 [facility] Blood hemoglobin measurement (mass/volume)Ordered By: Alfredito Guerrero on 11-16-2022 Hemoglobin (Bld) [Mass/Vol] 14.0 g/dL 12.0-15.0 [facility] Blood lymphocytes/100 leukoc ytesOrdered By: Alfredito Guerrero on 11-16-2022 Lymphocytes/100 WBC (Bld) 31.6 % 19-41 [facility] Blood monocytes/100 leukocyt esOrdered By: Alfredito Guerrero on 11-16-2022 Monocytes/100 WBC (Bld) 10.2 % 0-10 [facility] Blood platelet mean volumeOr dered By: Alfredito Guerrero on 11-16-2022 Platelet mean volume (Bld) [Entitic vol] 9.5 fL 6.2-12.0 [facility] Determination of erythrocyte mean corpuscular volume (MCV)Ordered By: Alfredito Guerrero on 11-16-2022 MCV (RBC) [Entitic vol] 95.6 fL 81-99 [facility] Hematocrit Auto (Bld) [Volum e fraction]Ordered By: Alfredito Guerrero on 11-16-2022 Hematocrit (Bld) [Volume fraction] 43.4 % 37-47 [facility] Laboratory - Hematology and Cell countsOrdered By: Alfredito Guerrero on 11-16-2022 Erythrocyte distribution width (RBC) [Entitic vol] 46.1 fL 35.1-43.9 [facility] Erythrocyte distribution width (RBC) [Ratio] 13.1 % 11.6-14.6 [facility] Immature granulocytes/100 WBC (Bld) 2.100 % 0.0-0.9 [facility] Comment on above: IG% - Immature Granu locytes (promyelocytes, myelocytes and metamyelocytes) > 1% indicates that a LEFT SHIFT is Present. MCH (RBC) [Entitic mass] 30.8 pg 27.0-32.0 [facility] Nucleated RBC/100 WBC (Bld) [Ratio] 0 % 0-5 [facility] MCHC Auto (RBC) [Mass/Vol]Or dered By: Alfredito Guerrero on 11-16-2022 MCHC (RBC) [Mass/Vol] 32.3 g/dL 32-36 [facility] Platelets bldOrdered By: Tobin Guerrero on 11-16-2022 Platelets (Bld) [#/Vol] 416 10*3/uL 150-450 [facility] Serum or plasma C reactive p rotein measurement (mass/volume)Ordered By: Alfredito Guerrero on 11-16-2022 CRP [Mass/Vol] 7.14 mg/L 0.0-3.0 [facility] Comment on above: C-Reactive Protein ( CRP) provides useful information for thediagnosis, therapy and monitoring of inflammatory processesand associated diseases. For the evaluation of Relative Riskfor Cardiovascular Disease, a High Sensitivity CRP (HSCRP)should be ordered. Basic metabolic 1998 panelon 11-09-2022 Anion gap [Moles/Vol] 7 mmol/L 3 - 13 mmol/L [facility] [employer] Calcium [Mass/Vol] 8.9 mg/dL 8.4 - 10. 4 mg/dL [facility] [employer] Chloride [Moles/Vol] 108 mmol/L High 98 - 10 7 mmol/L [facility] [employer] CO2 [Moles/Vol] 26 mmol/L 22 - 30 mmol/L [facility] Creatinine [Mass/Vol] 0.68 mg/dL 0.52 - 1.04 mg/dL [facility] GFR/1.73 sq M.predicted MDRD (S/P/Bld) [Vol rate/Area] - PINF [facility] Comment on above: Calculation based on the Chronic Kidney Disease Epidemiology Collaboration (CKD-EPI) equation refit without adjustment for race Glucose [Mass/Vol] 93 mg/dL 70 - 100 mg/dL [facility] Interpretation and review of laboratory results Abnormal [facility] Potassium [Moles/Vol] 3.4 mmol/L Low 3.5 - 5.1 mmol/L [facility] Sodium [Moles/Vol] 142 mmol/L 135 - 145 mmol/L [facility] Urea nitrogen [Mass/Vol] 10 mg/dL 7 - 17 mg/dL [facility] Laboratory - Chemistry and C hemistry - challengeon 11-09-2022 Magnesium [Mass/Vol] 1.9 mg/dL 1.6 - 2 .3 mg/dL [facility] Magnesium [Mass/Vol]on 11-09 Interpretation and review of laboratory results Normal [facility] CBC W Auto Differential pane l (Bld)Ordered By: Mickie Sepulveda on 11-08-2022 Basophils (Bld) [#/Vol] 0.0 10*3/uL 0.0 - 0.2 10*3/uL [facility] Basophils/100 WBC (Bld) 0.3 % 0.0 - 2.0 % [facility] Eosinophils (Bld) [#/Vol] 0.0 10*3/uL 0.0 - 0.5 10*3/uL [facility] Eosinophils/100 WBC (Bld) 0.0 % Low 1.0 - 6.0 % [facility] Erythrocyte distribution width (RBC) [Ratio] 13.7 % 11.5 - 14.5 % [facility] Hematocrit (Bld) [Volume fraction] 37.4 % 35.0 - 47.0 % [facility] Hemoglobin (Bld) [Mass/Vol] 12.6 g/dL 11.7 - 16.0 g/dL [facility] Interpretation and review of laboratory results Abnormal [facility] Lymphocytes (Bld) [#/Vol] 0.7 10*3/uL Low 1.0 - 4.3 10*3/uL [facility] Lymphocytes/100 WBC (Bld) 6.8 % Low 20.0 - 40.0 % [facility] MCH (RBC) [Entitic mass] 31.5 pg 26.0 - 34.0 pg [facility] MCHC (RBC) [Mass/Vol] 33.7 % 32.0 - 36.0 % [facility] MCV (RBC) [Entitic vol] 93.2 fL 80.0 - 98.0 fL [facility] Monocytes (Bld) [#/Vol] 0.3 10*3/uL 0.0 - 0.8 10*3/uL [facility] Monocytes/100 WBC (Bld) 2.5 % 2.0 - 10.0 % [facility] Neutrophils (Bld) [#/Vol] 9.9 10*3/uL High 1.8 - 7.0 10*3/uL [facility] Neutrophils/100 WBC (Bld) 90.4 % High 40.0 - 80.0 % [facility] Nucleated RBC/100 WBC (Bld) [Ratio] 0.0 % [facility] Platelet mean volume (Bld) [Entitic vol] 8.8 fL 7.4 - 12.4 fL [facility] Platelets (Bld) [#/Vol] 215 10*3/uL 140 - 440 10*3/uL [facility] RBC (Bld) [#/Vol] 4.02 10*6/uL 3.8 - 5.20 10*6/uL [facility] WBC (Bld) [#/Vol] 11.0 10*3/uL High 3.6 - 10.7 10*3/uL [facility] CBC W Auto Differential pane l (Bld)Ordered By: Rudy Franco on 11-07-2022 Basophils (Bld) [#/Vol] 0.0 10*3/uL 0.0 - 0.2 10*3/uL [facility] Basophils/100 WBC (Bld) 0.1 % 0.0 - 2.0 % [facility] Eosinophils (Bld) [#/Vol] 0.0 10*3/uL 0.0 - 0.5 10*3/uL [facility] Eosinophils/100 WBC (Bld) 0.0 % Low 1.0 - 6.0 % [facility] Erythrocyte distribution width (RBC) [Ratio] 13.7 % 11.5 - 14.5 % [facility] Hematocrit (Bld) [Volume fraction] 41.8 % 35.0 - 47.0 % [facility] Hemoglobin (Bld) [Mass/Vol] 13.4 g/dL 11.7 - 16.0 g/dL [facility] Interpretation and review of laboratory results Abnormal [facility] Lymphocytes (Bld) [#/Vol] 1.5 10*3/uL 1.0 - 4.3 10*3/uL [facility] Lymphocytes/100 WBC (Bld) 9.1 % Low 20.0 - 40.0 % [facility] MCH (RBC) [Entitic mass] 30.7 pg 26.0 - 34.0 pg [facility] MCHC (RBC) [Mass/Vol] 32.0 % 32.0 - 36.0 % [facility] MCV (RBC) [Entitic vol] 95.9 fL 80.0 - 98.0 fL [facility] Monocytes (Bld) [#/Vol] 0.8 10*3/uL 0.0 - 0.8 10*3/uL [facility] Monocytes/100 WBC (Bld) 5.0 % 2.0 - 10.0 % [facility] Neutrophils (Bld) [#/Vol] 14.3 10*3/uL High 1.8 - 7.0 10*3/uL [facility] Neutrophils/100 WBC (Bld) 85.8 % High 40.0 - 80.0 % [facility] Nucleated RBC/100 WBC (Bld) [Ratio] 0.1 % [facility] Platelet mean volume (Bld) [Entitic vol] 8.1 fL 7.4 - 12.4 fL [facility] Platelets (Bld) [#/Vol] 263 10*3/uL 140 - 440 10*3/uL [facility] RBC (Bld) [#/Vol] 4.36 10*6/uL 3.8 - 5.20 10*6/uL [facility] WBC (Bld) [#/Vol] 16.7 10*3/uL High 3.6 - 10.7 10*3/uL [facility] Laboratory - Chemistry and C hemistry - challengeon 11-07-2022 Potassium [Moles/Vol] 4.3 mmol/L 3.5 - 5.1 mmol/L [facility] Laboratory - Coagulationon 0 11-07-2022 PT Coag (Bld) [Time] 10.6 s 9.0 - 12.0 s [facility] PT Coag (Bld) [Time]on 11-07 INR Coag (PPP) [Relative time] 1.0 {INR} 0.9 - 1.1 [facility] Comment on above: Recommended Anticoag ulant Therapy: SEE BELOW ----- INR of 2.0 - 3.0 : - Prophylaxis of Venous Thrombosis (high-risk surgery) - Treatment of Venous Thrombosis - Treatment of Pulmonary Embolism (Includes tissue heart valves, Acute Myocardial Infarction to prevent systemic embolism, Valvular Heart Disease, and Atrial Fibrillation) ----- INR of 2.5 - 3.5 : - Mechanical Prosthetic Valves (high risk) - If oral anticoagulant therapy is used to prevent Myocardial Infarction Interpretation and review of laboratory results Normal [facility] Potassium [Moles/Vol]on 10-22 Interpretation and review of laboratory results Normal [facility] CBC W Auto Differential pane l (Bld)Ordered By: Stephania Guzman on 11-06-2022 Basophils (Bld) [#/Vol] 0.1 10*3/uL 0.0 - 0.2 10*3/uL [facility] Basophils/100 WBC (Bld) 1.0 % 0.0 - 2.0 % [facility] Eosinophils (Bld) [#/Vol] 0.1 10*3/uL 0.0 - 0.5 10*3/uL [facility] Eosinophils/100 WBC (Bld) 0.7 % Low 1.0 - 6.0 % [facility] Erythrocyte distribution width (RBC) [Ratio] 13.7 % 11.5 - 14.5 % [facility] Hematocrit (Bld) [Volume fraction] 46.2 % 35.0 - 47.0 % [facility] Hemoglobin (Bld) [Mass/Vol] 15.4 g/dL 11.7 - 16.0 g/dL [facility] Interpretation and review of laboratory results Abnormal [facility] Lymphocytes (Bld) [#/Vol] 2.2 10*3/uL 1.0 - 4.3 10*3/uL [facility] Lymphocytes/100 WBC (Bld) 22.6 % 20.0 - 40.0 % [facility] [employer] MCH (RBC) [Entitic mass] 30.9 pg 26.0 - 34.0 pg [facility] [employer] MCHC (RBC) [Mass/Vol] 33.2 % 32.0 - 36.0 % [facility] [employer] MCV (RBC) [Entitic vol] 92.9 fL 80.0 - 98.0 fL [facility] [employer] Monocytes (Bld) [#/Vol] 0.5 10*3/uL 0.0 - 0.8 10*3/uL [facility] Monocytes/100 WBC (Bld) 5.1 % 2.0 - 10.0 % [facility] [employer] Neutrophils (Bld) [#/Vol] 7.0 10*3/uL 1.8 - 7.0 10*3/uL [facility] Neutrophils/100 WBC (Bld) 70.6 % 40.0 - 80.0 % [facility] [employer] Nucleated RBC/100 WBC (Bld) [Ratio] 0.1 % [facility] [employer] Platelet mean volume (Bld) [Entitic vol] 7.9 fL 7.4 - 12.4 fL [facility] [employer] Platelets (Bld) [#/Vol] 306 10*3/uL 140 - 440 10*3/uL [facility] RBC (Bld) [#/Vol] 4.98 10*6/uL 3.8 - 5.20 10*6/uL [facility] WBC (Bld) [#/Vol] 9.9 10*3/uL 3.6 - 10.7 10*3/uL [facility] No Panel Informationon 11-06 There is no interpretation needed for this exam. IMAGING There is no interpretation needed for this exam. IMAGING ECG 12 leadon 10-30-2022 [facility] [employer] XR Chest 2 Viewson No acute process. Report Dictated on Electronically Signed By: Augustine Pelayo Electronically Signed Date/Time: 10/30/2022 11:16 AM [facility] [employer] [facility] Patient Name: ORTIZ JACOBS : 1970 Exam Date/Time: 10/30/2022 09:56 Procedure: XR CHEST 2 VIEWS Ordering Provider: LOREDO EUGENE Reason For Exam: cough PA AND LATERAL CHEST CLINICAL INDICATION: Cough TECHNIQUE: PA and Lateral chest COMPARISON: 09/18/2019 FINDINGS: The cardiomediastinal silhouette appears unchanged from the prior exam. The lungs are clear. There is no sizable pleural effusion. Postsurgical changes in the cervical spine. [facility] Augustine Pelayo MD - 10/30/2022 Patient Name: ORTIZ JACOBS : 1970 Exam Date/Time: 10/30/2022 09:56 Procedure: XR CHEST 2 VIEWS Ordering Provider: LOREDO EUGENE Reason For Exam: cough PA AND LATERAL CHEST CLINICAL INDICATION: Cough TECHNIQUE: PA and Lateral chest COMPARISON: 09/18/2019 FINDINGS: The cardiomediastinal silhouette appears unchanged from the prior exam. The lungs are clear. There is no sizable pleural effusion. Postsurgical changes in the cervical spine. IMPRESSION: No acute process. Report Dictated on Electronically Signed By: Augustine Pelayo Electronically Signed Date/Time: 10/30/2022 11:16 AM EST [facility] Radiology Study observation (narrative) [facility] XR Chest 2 ViewsOrdered By: Augustine Pelayo on 10-30-2022 [facility] Work Phone: CBC panel Auto (Bld)on 10-03 Erythrocyte distribution width (RBC) [Ratio] 13.6 % 11.5 - 14.5 % [facility] Hematocrit (Bld) [Volume fraction] 44.7 % 35.0 - 47.0 % [facility] Hemoglobin (Bld) [Mass/Vol] 15.2 g/dL 11.7 - 16.0 g/dL [facility] Interpretation and review of laboratory results Normal [facility] MCH (RBC) [Entitic mass] 31.5 pg 26.0 - 34.0 pg [facility] MCHC (RBC) [Mass/Vol] 34.1 % 32.0 - 36.0 % [facility] MCV (RBC) [Entitic vol] 92.3 fL 80.0 - 98.0 fL [facility] Platelet mean volume (Bld) [Entitic vol] 7.9 fL 7.4 - 12.4 fL [facility] Platelets (Bld) [#/Vol] 331 10*3/uL 140 - 440 10*3/uL [facility] RBC (Bld) [#/Vol] 4.84 10*6/uL 3.8 - 5.20 10*6/uL [facility] WBC (Bld) [#/Vol] 6.4 10*3/uL 3.6 - 10.7 10*3/uL [facility] Laboratory - Coagulationon 0 10-03-2022 PT Coag (Bld) [Time] 10.0 s 9.0 - 12.0 s [facility] No Panel Informationon 10-03 Successful uncomplicated fluoroscopic guided lumbar puncture with myelographic injection of contrast. Multilevel degenerative changes of the lumbar spine as described above. This is most significant at the L3-L4 level where a diffuse disc bulge causes moderate narrowing of the central canal as well as narrowing of both lateral recesses. Diffuse fatty infiltration of the liver. Report Dictated on Electronically Signed By: Bill Chery Electronically Signed Date/Time: 10/03/2022 2:52 PM [facility] Patient Name: ORTIZ JACOBS : 1970 Exam Date/Time: 10/03/2022 09:03 Procedure: IR MYELOGRAPHY LUMBOSACRAL SI Ordering Provider: SERNA BRADLEY Reason For Exam: spinal stenosis, with neurogenic claudication CLINICAL HISTORY: Lower back pain Procedures: Fluoroscopic guided lumbar puncture with CT myelogram Physician: Dr. Chery MEDICATIONS: Local lidocaine. EBL: Minimal. Contrast: 15 mL Isovue 300 M into the thecal sac Specimen sent: None COMPLICATIONS: None Fluoroscopy time: 0.4 minutes Angiographic runs: 0 Fluoroscopic spot images: 0 Fluoroscopic saved images were obtained. These images do NOT add additional exposure to ionizing radiation and were captured electronically from the imaging chain. Procedural details: All of the risk, benefits, and alternative treatments were explained to the patient and informed consent was obtained and documented. The patient was brought into the fluoroscopy suite and placed in a prone position. The patient's lower back was interrogated with fluoroscopy and a suitable site for lumbar puncture was identified at the L2 level. The overlying skin was prepped and draped in the usual sterile fashion. The overlying subcutaneous tissues were anesthetized using 2 percent lidocaine. Under intermittent fluoroscopic observation, a 22-gauge spinal needle was advanced into the thecal sac. There was return of clear CSF fluid. 15 mL of myelographic contrast was injected through the needle under intermittent fluoroscopic observation. This showed normal filling of the thecal sac. The needle was then removed and hemostasis was obtained using manual pressure. The patient was then transferred to the CT scanner. [address] images were then obtained of the lumbar spine. Images were reformatted in coronal and sagittal projections. FINDINGS: Vertebral bodies of the lumbar spine are normal in height without evidence of an acute compression fracture. The patient is status post posterior instrumented arthrodesis of L4-S1. There is no evidence of hardware failure. There is mild multilevel degenerative disc disease. No listhesis is identified. The normal lumbar lordosis is maintained. Within the visualized abdomen and pelvis is diffuse fatty infiltration of the liver. Degenerative changes of the lumbar spine for level are as follows: T12-L1: No significant degenerative changes. Central canal and neural foramina are patent L1-L2: No significant degenerative changes. Central canal neural foramina are patent. L2-L3: Mild facet arthrosis. The central canal and neural foramina are patent. L3-L4: There is a diffuse disc bulge at this level which causes moderate narrowing of the central canal and narrowing of both lateral recesses. The neural foramina are mildly narrowed. L4-L5: Central canal is decompressed at this level. There is moderate facet arthrosis. The neural foramina are patent. L5-S1: Central canal is decompressed at this level. There is moderate facet arthrosis. Neural foramina remain patent. [facility] Amelie Chery MD - 10/03/2022 Patient Name: ORTIZ JACOBS : 1970 Exam Date/Time: 10/03/2022 09:03 Procedure: IR MYELOGRAPHY LUMBOSACRAL SI Ordering Provider: SERNA BRADLEY Reason For Exam: spinal stenosis, with neurogenic claudication CLINICAL HISTORY: Lower back pain Procedures: Fluoroscopic guided lumbar puncture with CT myelogram Physician: Dr. Chery MEDICATIONS: Local lidocaine. EBL: Minimal. Contrast: 15 mL Isovue 300 M into the thecal sac Specimen sent: None COMPLICATIONS: None Fluoroscopy time: 0.4 minutes Angiographic runs: 0 Fluoroscopic spot images: 0 Fluoroscopic saved images were obtained. These images do NOT add additional exposure to ionizing radiation and were captured electronically from the imaging chain. Procedural details: All of the risk, benefits, and alternative treatments were explained to the patient and informed consent was obtained and documented. The patient was brought into the fluoroscopy suite and placed in a prone position. The patient's lower back was interrogated with fluoroscopy and a suitable site for lumbar puncture was identified at the L2 level. The overlying skin was prepped and draped in the usual sterile fashion. The overlying subcutaneous tissues were anesthetized using 2 percent lidocaine. Under intermittent fluoroscopic observation, a 22-gauge spinal needle was advanced into the thecal sac. There was return of clear CSF fluid. 15 mL of myelographic contrast was injected through the needle under intermittent fluoroscopic observation. This showed normal filling of the thecal sac. The needle was then removed and hemostasis was obtained using manual pressure. The patient was then transferred to the CT scanner. [address] images were then obtained of the lumbar spine. Images were reformatted in coronal and sagittal projections. FINDINGS: Vertebral bodies of the lumbar spine are normal in height without evidence of an acute compression fracture. The patient is status post posterior instrumented arthrodesis of L4-S1. There is no evidence of hardware failure. There is mild multilevel degenerative disc disease. No listhesis is identified. The normal lumbar lordosis is maintained. Within the visualized abdomen and pelvis is diffuse fatty infiltration of the liver. Degenerative changes of the lumbar spine for level are as follows: T12-L1: No significant degenerative changes. Central canal and neural foramina are patent L1-L2: No significant degenerative changes. Central canal neural foramina are patent. L2-L3: Mild facet arthrosis. The central canal and neural foramina are patent. L3-L4: There is a diffuse disc bulge at this level which causes moderate narrowing of the central canal and narrowing of both lateral recesses. The neural foramina are mildly narrowed. L4-L5: Central canal is decompressed at this level. There is moderate facet arthrosis. The neural foramina are patent. L5-S1: Central canal is decompressed at this level. There is moderate facet arthrosis. Neural foramina remain patent. IMPRESSION: Successful uncomplicated fluoroscopic guided lumbar puncture with myelographic injection of contrast. Multilevel degenerative changes of the lumbar spine as described above. This is most significant at the L3-L4 level where a diffuse disc bulge causes moderate narrowing of the central canal as well as narrowing of both lateral recesses. Diffuse fatty infiltration of the liver. Report Dictated on Electronically Signed By: Bill Chery Electronically Signed Date/Time: 10/03/2022 2:52 PM EST [facility] Radiology Study observation (narrative) [facility]th No Panel InformationOrdered By: Amelie Chery on 10-03-2022 [facility] Work Phone: PT Coag (Bld) [Time]on 10-03 INR Coag (PPP) [Relative time] 0.9 {INR} 0.9 - 1.1 [facility] Comment on above: Recommended Anticoag ulant Therapy: SEE BELOW ----- INR of 2.0 - 3.0 : - Prophylaxis of Venous Thrombosis (high-risk surgery) - Treatment of Venous Thrombosis - Treatment of Pulmonary Embolism (Includes tissue heart valves, Acute Myocardial Infarction to prevent systemic embolism, Valvular Heart Disease, and Atrial Fibrillation) ----- INR of 2.5 - 3.5 : - Mechanical Prosthetic Valves (high risk) - If oral anticoagulant therapy is used to prevent Myocardial Infarction Interpretation and review of laboratory results Normal [facility] Absolute lymphocyte countOrd ered By: Dr. Jeffrey on 09-23-2022 Lymphocytes Auto (Unsp spec) [#/Vol] 1.88 10*3/uL 0.83-4.51 [facility] Basophil percentageOrdered B y: Dr. Jeffrey on 09-23-2022 Basophils/100 WBC (Bld) 0.5 % 0-1 [facility] Bilirubin [Mass/Vol] 0.30 mg/dL 0.20-1.00 [facility] Comment on above: For patients on eltr ombopag therapy, use of Dimension [place] TBIL is not recommended. Chloride [Moles/Vol] 108 mmol/L 98-107 [facility] Eosinophils/100 WBC (Bld) 0.5 % 0-5 [facility] Glucose [Mass/Vol] 108 mg/dL 74-106 [facility] Comment on above: Fasting Glucose resu lt from 100 to 125 mg/dL suggests IMPAIRED HOMEOSTASIS per A.D.A. criteria. Neutrophils (Bld) [#/Vol] 7.0 10*3/uL 2.0-7.7 [facility] Neutrophils/100 WBC (Bld) 72.9 % 47-70 [facility] Potassium [Moles/Vol] 4.2 mmol/L 3.5-5.1 [facility] Protein [Mass/Vol] 7.7 g/dL 6.4-8.2 [facility] Sodium [Moles/Vol] 139 mmol/L 136-145 [facility] WBC (Bld) [#/Vol] 9.6 10*3/uL 4.4-11.0 [facility] Blood erythrocytes count (nu mber/volume)Ordered By: Dr. Jeffrey on 09-23-2022 RBC (Bld) [#/Vol] 5.21 10*6/uL 4.2-5.4 [facility] Blood hemoglobin measurement (mass/volume)Ordered By: Dr. Jeffrey on 09-23-2022 Hemoglobin (Bld) [Mass/Vol] 16.0 g/dL 12.0-15.0 [facility] Blood lymphocytes/100 leukoc ytesOrdered By: Dr. Jeffrey on 09-23-2022 Lymphocytes/100 WBC (Bld) 19.6 % 19-41 [facility] Blood monocytes/100 leukocyt esOrdered By: Dr. Jeffrey on 09-23-2022 Monocytes/100 WBC (Bld) 6.1 % 0-10 [facility] Blood platelet mean volumeOr dered By: Dr. Jeffrey on 09-23-2022 Platelet mean volume (Bld) [Entitic vol] 10.0 fL 6.2-12.0 [facility] Determination of erythrocyte mean corpuscular volume (MCV)Ordered By: Dr. Jeffrey on 09-23-2022 MCV (RBC) [Entitic vol] 91.6 fL 81-99 [facility] Direct bilirubinOrdered By: Dr. Jeffrey on 09-23-2022 Bilirubin.direct [Mass/Vol] 0.12 mg/dL 0.00-0.30 [facility] Hematocrit Auto (Bld) [Volum e fraction]Ordered By: Dr. Jeffrey on 09-23-2022 Hematocrit (Bld) [Volume fraction] 47.7 % 37-47 [facility] Laboratory - Chemistry and C hemistry - challengeOrdered By: Dr. Jeffrey on 09-23-2022 ALP [Catalytic activity/Vol] 195 U/L 45-117 [facility] ALT [Catalytic activity/Vol] 25 U/L 13-56 [facility] CO2 [Moles/Vol] 23.0 mmol/L 21.0-32.0 [facility] Globulin (S) [Mass/Vol] 3.7 g/dL 2.2-4.2 [facility] Lipase [Catalytic activity/Vol] 115 U/L 73-393 [facility] Urea nitrogen/Creatinine [Mass ratio] 12.6 mg/mg 10-20 [facility] Laboratory - Hematology and Cell countsOrdered By: Dr. Jeffrey on 09-23-2022 Erythrocyte distribution width (RBC) [Entitic vol] 42.8 fL 35.1-43.9 [facility] Erythrocyte distribution width (RBC) [Ratio] 12.8 % 11.6-14.6 [facility] Immature granulocytes/100 WBC (Bld) 0.400 % 0.0-0.9 [facility] Comment on above: IG% - Immature Granu locytes (promyelocytes, myelocytes and metamyelocytes) > 1% indicates that a LEFT SHIFT is Present. MCH (RBC) [Entitic mass] 30.7 pg 27.0-32.0 [facility] Nucleated RBC/100 WBC (Bld) [Ratio] 0 % 0-5 [facility] MCHC Auto (RBC) [Mass/Vol]Or dered By: Dr. Jeffrey on 09-23-2022 MCHC (RBC) [Mass/Vol] 33.5 g/dL 32-36 [facility] No Panel InformationOrdered By: Dr. Jeffrey on 09-23-2022 Troponin I High Sensitivity < 3 pg/mL 3.0-54.0 [facility] Comment on above: Please Note: New Evelyn t Units and Gender Specific Reference Ranges. For more information see Policy Stat Procedure [place] High Sensitivity Troponin (TNIH) and attachments. Estimated Creatinine Clearance Calc 107.93 ml/min [facility] Estimated GFR (MDRD) Amer 126 mL/min >60 [facility] Comment on above: GFR Calc Estimated GFR (MDRD) Non-Af Amer 104 mL/min >60 [facility] Comment on above: Non- GFR Calc Platelets bldOrdered By: Dr. Jeffrey on 09-23-2022 Platelets (Bld) [#/Vol] 327 10*3/uL 150-450 [facility] Serum or plasma albumin tania urement (mass/volume)Ordered By: Dr. Jeffrey on 09-23-2022 Albumin [Mass/Vol] 4.0 g/dL 3.2-5.0 [facility] Serum or plasma calcium tania urement (mass/volume)Ordered By: Dr. Jeffrey on 09-23-2022 Calcium [Mass/Vol] 9.3 mg/dL 8.5-10.1 [facility] Serum or plasma creatinine m easurement (mass/volume)Ordered By: Dr. Jeffrey on 09-23-2022 Creatinine [Mass/Vol] 0.63 mg/dL 0.55-1.02 [facility] Comment on above: The validity of the calculated GFR & GFRAA in patients over 70 years has not been determined. Clinical correlation is essential. Serum or plasma urea nitroge n measurement (mass/volume)Ordered By: Dr. Jeffrey on 09-23-2022 Urea nitrogen [Mass/Vol] 8 mg/dL 7-18 [facility] Thin prep Papanicolaou smear with manual screeningOrdered By: Dr. Jeffrey on 09-23-2022 Thin prep Papanicolaou smear with manual screening 24 U/L 15-37 [facility] Thin prep Papanicolaou smear with manual screening 8 5-15 [facility] Absolute lymphocyte countOrd ered By: Dr. Chaney on 08-24-2022 Lymphocytes Auto (Unsp spec) [#/Vol] 2.95 10*3/uL 0.83-4.51 [facility] Basophil percentageOrdered B y: Dr. Chaney on 08-24-2022 Basophils/100 WBC (Bld) 0.6 % 0-1 [facility] Bilirubin [Mass/Vol] 0.30 mg/dL 0.20-1.00 [facility] Comment on above: For patients on eltr ombopag therapy, use of Dimension [place] TBIL is not recommended. Chloride [Moles/Vol] 110 mmol/L 98-107 [facility] Eosinophils/100 WBC (Bld) 1.0 % 0-5 [facility] Glucose [Mass/Vol] 99 mg/dL 74-106 [facility] Neutrophils (Bld) [#/Vol] 6.2 10*3/uL 2.0-7.7 [facility] Neutrophils/100 WBC (Bld) 61.6 % 47-70 [facility] Potassium [Moles/Vol] 4.1 mmol/L 3.5-5.1 [facility] Protein [Mass/Vol] 7.6 g/dL 6.4-8.2 [facility] Sodium [Moles/Vol] 141 mmol/L 136-145 [facility] WBC (Bld) [#/Vol] 10.0 10*3/uL 4.4-11.0 [facility] Blood erythrocytes count (nu mber/volume)Ordered By: Dr. Chaney on 08-24-2022 RBC (Bld) [#/Vol] 5.31 10*6/uL 4.2-5.4 [facility] Blood hemoglobin measurement (mass/volume)Ordered By: Dr. Chaney on 08-24-2022 Hemoglobin (Bld) [Mass/Vol] 16.4 g/dL 12.0-15.0 [facility] Blood lymphocytes/100 leukoc ytesOrdered By: Dr. Chaney on 08-24-2022 Lymphocytes/100 WBC (Bld) 29.5 % 19-41 [facility] Blood monocytes/100 leukocyt esOrdered By: Dr. Chaney on 08-24-2022 Monocytes/100 WBC (Bld) 6.8 % 0-10 [facility] Blood platelet mean volumeOr dered By: Dr. Chaney on 08-24-2022 Platelet mean volume (Bld) [Entitic vol] 9.8 fL 6.2-12.0 [facility] Determination of erythrocyte mean corpuscular volume (MCV)Ordered By: Dr. Chaney on 08-24-2022 MCV (RBC) [Entitic vol] 93.2 fL 81-99 [facility] Hematocrit Auto (Bld) [Volum e fraction]Ordered By: Dr. Chaney on 08-24-2022 Hematocrit (Bld) [Volume fraction] 49.5 % 37-47 [facility] Laboratory - Chemistry and C hemistry - challengeOrdered By: Dr. Chaney on 08-24-2022 ALP [Catalytic activity/Vol] 186 U/L 45-117 [facility] ALT [Catalytic activity/Vol] 21 U/L 13-56 [facility] CO2 [Moles/Vol] 24.0 mmol/L 21.0-32.0 [facility] Globulin (S) [Mass/Vol] 3.9 g/dL 2.2-4.2 [facility] Lipase [Catalytic activity/Vol] 164 U/L 73-393 [facility] Urea nitrogen/Creatinine [Mass ratio] 9.4 mg/mg 10-20 [facility] Laboratory - Hematology and Cell countsOrdered By: Dr. Chaney on 08-24-2022 Erythrocyte distribution width (RBC) [Entitic vol] 43.2 fL 35.1-43.9 [facility] Erythrocyte distribution width (RBC) [Ratio] 12.6 % 11.6-14.6 [facility] Immature granulocytes/100 WBC (Bld) 0.500 % 0.0-0.9 [facility] Comment on above: IG% - Immature Granu locytes (promyelocytes, myelocytes and metamyelocytes) > 1% indicates that a LEFT SHIFT is Present. MCH (RBC) [Entitic mass] 30.9 pg 27.0-32.0 [facility] Nucleated RBC/100 WBC (Bld) [Ratio] 0 % 0-5 [facility] MCHC Auto (RBC) [Mass/Vol]Or dered By: Dr. Chaney on 08-24-2022 MCHC (RBC) [Mass/Vol] 33.1 g/dL 32-36 [facility] No Panel InformationOrdered By: Dr. Chaney on 08-24-2022 Troponin I High Sensitivity 4 pg/mL 3.0-54.0 [facility] Comment on above: Please Note: New Evelyn t Units and Gender Specific Reference Ranges. For more information see Policy Stat Procedure [place] High Sensitivity Troponin (TNIH) and attachments. Estimated Creatinine Clearance Calc 106.24 ml/min [facility] Estimated GFR (MDRD) Amer 125 mL/min >60 [facility] Comment on above: GFR Calc Estimated GFR (MDRD) Non-Af Amer 103 mL/min >60 [facility] Comment on above: Non- GFR Calc Platelets bldOrdered By: Dr. Chaney on 08-24-2022 Platelets (Bld) [#/Vol] 442 10*3/uL 150-450 [facility] Serum or plasma albumin tania urement (mass/volume)Ordered By: Dr. Chaney on 08-24-2022 Albumin [Mass/Vol] 3.7 g/dL 3.2-5.0 [facility] Serum or plasma albumin/glob ulin mass ratioOrdered By: Dr. Chaney on 08-24-2022 Albumin/Globulin [Mass ratio] 0.9 {ratio} 0.9-2.4 [facility] Serum or plasma calcium tania urement (mass/volume)Ordered By: Dr. Chaney on 08-24-2022 Calcium [Mass/Vol] 8.8 mg/dL 8.5-10.1 [facility] Serum or plasma creatinine m easurement (mass/volume)Ordered By: Dr. Chaney on 08-24-2022 Creatinine [Mass/Vol] 0.64 mg/dL 0.55-1.02 [facility] Comment on above: The validity of the calculated GFR & GFRAA in patients over 70 years has not been determined. Clinical correlation is essential. Serum or plasma urea nitroge n measurement (mass/volume)Ordered By: Dr. Chaney on 08-24-2022 Urea nitrogen [Mass/Vol] 6 mg/dL 7-18 [facility] Thin prep Papanicolaou smear with manual screeningOrdered By: Dr. Chaney on 08-24-2022 Thin prep Papanicolaou smear with manual screening 18 U/L 15-37 [facility] Thin prep Papanicolaou smear with manual screening 7 5-15 [facility] Absolute lymphocyte countOrd ered By: Dr. Parkinson on 08-20-2022 Lymphocytes Auto (Unsp spec) [#/Vol] 3.73 10*3/uL 0.83-4.51 [facility] Basophil percentageOrdered B y: Dr. Parkinson on 08-20-2022 Basophils/100 WBC (Bld) 0.5 % 0-1 [facility] Chloride [Moles/Vol] 110 mmol/L 98-107 [facility] Eosinophils/100 WBC (Bld) 1.3 % 0-5 [facility] Glucose [Mass/Vol] 99 mg/dL 74-106 [facility] Neutrophils (Bld) [#/Vol] 5.5 10*3/uL 2.0-7.7 [facility] Neutrophils/100 WBC (Bld) 54.3 % 47-70 [facility] Potassium [Moles/Vol] 3.7 mmol/L 3.5-5.1 [facility] Sodium [Moles/Vol] 143 mmol/L 136-145 [facility] WBC (Bld) [#/Vol] 10.0 10*3/uL 4.4-11.0 [facility] Blood erythrocytes count (nu mber/volume)Ordered By: Dr. Parkinson on 08-20-2022 RBC (Bld) [#/Vol] 4.75 10*6/uL 4.2-5.4 [facility] Blood hemoglobin measurement (mass/volume)Ordered By: Dr. Parkinson on 08-20-2022 Hemoglobin (Bld) [Mass/Vol] 14.9 g/dL 12.0-15.0 [facility] Blood lymphocytes/100 leukoc ytesOrdered By: Dr. Parkinson on 08-20-2022 Lymphocytes/100 WBC (Bld) 37.2 % 19-41 [facility] Blood monocytes/100 leukocyt esOrdered By: Dr. Parkinson on 08-20-2022 Monocytes/100 WBC (Bld) 6.3 % 0-10 [facility] Blood platelet mean volumeOr dered By: Dr. Parkinson on 08-20-2022 Platelet mean volume (Bld) [Entitic vol] 9.6 fL 6.2-12.0 [facility] COVID-19 virus antigen assay Ordered By: Dr. Parkinson on 08-20-2022 SARS-CoV-2 (COVID-19) Ag IA.rapid Ql (Resp) [facility] Determination of erythrocyte mean corpuscular volume (MCV)Ordered By: Dr. Parkinson on 08-20-2022 MCV (RBC) [Entitic vol] 92.0 fL 81-99 [facility] Hematocrit Auto (Bld) [Volum e fraction]Ordered By: Dr. Parkinson on 08-20-2022 Hematocrit (Bld) [Volume fraction] 43.7 % 37-47 [facility] Laboratory - Chemistry and C hemistry - challengeOrdered By: Dr. Parkinson on 08-20-2022 CO2 [Moles/Vol] 28.0 mmol/L 21.0-32.0 [facility] Urea nitrogen/Creatinine [Mass ratio] 11.6 mg/mg 10-20 [facility] Laboratory - Hematology and Cell countsOrdered By: Dr. Parkinson on 08-20-2022 Erythrocyte distribution width (RBC) [Entitic vol] 41.9 fL 35.1-43.9 [facility] Erythrocyte distribution width (RBC) [Ratio] 12.4 % 11.6-14.6 [facility] Immature granulocytes/100 WBC (Bld) 0.400 % 0.0-0.9 [facility] Comment on above: IG% - Immature Granu locytes (promyelocytes, myelocytes and metamyelocytes) > 1% indicates that a LEFT SHIFT is Present. MCH (RBC) [Entitic mass] 31.4 pg 27.0-32.0 [facility] Nucleated RBC/100 WBC (Bld) [Ratio] 0 % 0-5 [facility] MCHC Auto (RBC) [Mass/Vol]Or dered By: Dr. Parkinson on 08-20-2022 MCHC (RBC) [Mass/Vol] 34.1 g/dL 32-36 [facility] No Panel InformationOrdered By: Dr. Parkinson on 08-20-2022 Estimated Creatinine Clearance Calc 98.54 ml/min [facility] Estimated GFR (MDRD) Amer 114 mL/min >60 [facility] Comment on above: GFR Calc Estimated GFR (MDRD) Non-Af Amer 94 mL/min >60 [facility] Comment on above: Non- GFR Calc Platelets bldOrdered By: Dr. Parkinson on 08-20-2022 Platelets (Bld) [#/Vol] 389 10*3/uL 150-450 [facility] Serum or plasma calcium tania urement (mass/volume)Ordered By: Dr. Parkinson on 08-20-2022 Calcium [Mass/Vol] 9.0 mg/dL 8.5-10.1 [facility] Serum or plasma creatinine m easurement (mass/volume)Ordered By: Dr. Parkinson on 08-20-2022 Creatinine [Mass/Vol] 0.69 mg/dL 0.55-1.02 [facility] Comment on above: The validity of the calculated GFR & GFRAA in patients over 70 years has not been determined. Clinical correlation is essential. Serum or plasma urea nitroge n measurement (mass/volume)Ordered By: Dr. Parkinson on 08-20-2022 Urea nitrogen [Mass/Vol] 8 mg/dL 7-18 [facility] Thin prep Papanicolaou smear with manual screeningOrdered By: Dr. Parkinson on 08-20-2022 Thin prep Papanicolaou smear with manual screening 5 5-15 [facility] Laboratory - Drug toxicology on 04-02-2022 Amphetamines Ql (U) Negative <1000 ng/mL [facility] Work Phone: Benzodiazepines Ql (U) Negative < 200 ng/mL [facility] Work Phone: [phone] Cannabinoids Screen Ql (U) Negative < 50 ng/mL [facility] Work Phone: [phone] Cocaine Ql (U) Negative < 300 ng/mL [facility] Work Phone: [phone] Opiates Ql (U) Negative < 300 ng/mL [facility] Work Phone: No Panel Informationon 04-02 MDMA (Ecstasy) Screen Negative < 500 ng/mL [facility] Work Phone: Miscellaneous Test See comment [facility] Work Phone: Comment on above: [id number] 6+OXYCODONE-B UND (ng/mL) DRUG RESULT SCREEN CUTOFF____ Amphetamines,Urine Negative ng/mL 1000 Amphetamine test includes Amphetamine and Methamphetamine.Barbiturates Negative ng/mL 200Benzodiazepines Negative ng/mL 200Cannabinoid Negative ng/mL 20Cocaine (Metab) Negative ng/mL 300Opiates Negative ng/mL 300 Opiates test includes Codeine, Morphine, Hydromorphone, Hydrocodone. Oxycodone/Oxymorphone,Urine Negative ng/mL 300 Test includes Oxydodone and Oxymorphone. TESTING PERFORMED AT [facility]. ORIGINAL REPORT ON FILE IN LAB CONTAINS ADDITIONAL TEST SITE INFORMATION. Urine Barbiturates Screen Negative < 200 ng/mL [facility] Work Phone: Urine Drug Screen Comment [facility] Work Phone: Comment on above: CONFIRMATORY TESTING FOR ALL POSITIVE URINE DRUG SCREENRESULTS WILL ONLY BE SENT OUT UPON PHYSICIAN ORDER. VISTA Urine Drug Screen methods provide only preliminaryanalytical test results. A more specific alternate chemicalmethod must be used in order to obtain a confirmedanalytical result. Gas chromatography/mass spectrometery(GC/MS) is the preferred confirmatory method. Clinicalconsideration and professional judgement should be appliedto any drug of abuse test result, particularly whenpreliminary positive results are used. URINE TCA TESTING MUST BE ORDERED SEPARATELY. USE TESTMNEMONIC: [facility] Urine Methadone Screen Negative < 300 ng/mL [facility] Work Phone: Urine phencyclidine (PCP) de tectionon 04-02-2022 Phencyclidine Ql (U) Negative < 25 ng/mL [facility] Work Phone: Absolute lymphocyte counton 01-27-2022 Lymphocytes Auto (Unsp spec) [#/Vol] 2.86 10*3/uL 0.83-4.51 [facility] Work Phone: Basophil percentageon 2021 Lactate [Moles/Vol] 1.6 mmol/L 0.4-2.0 [facility] Work Phone: Basophils/100 WBC (Bld) 0.7 % 0-1 [facility] Work Phone: Eosinophils/100 WBC (Bld) 1.0 % 0-5 [facility] Work Phone: Neutrophils (Bld) [#/Vol] 5.0 10*3/uL 2.0-7.7 [facility] Work Phone: Neutrophils/100 WBC (Bld) 57.6 % 47-70 [facility] Work Phone: WBC (Bld) [#/Vol] 8.7 10*3/uL 4.4-11.0 [facility] Work Phone: Bilirubin [Mass/Vol] 0.10 mg/dL 0.20-1.00 [facility] Work Phone: Comment on above: For patients on eltr ombopag therapy, use of Dimension [place] TBIL is not recommended. Chloride [Moles/Vol] 108 mmol/L 98-107 [facility] Work Phone: Glucose [Mass/Vol] 86 mg/dL 74-106 [facility] Work Phone: Potassium [Moles/Vol] 3.4 mmol/L 3.5-5.1 [facility] Work Phone: Protein [Mass/Vol] 6.9 g/dL 6.4-8.2 [facility] Work Phone: Sodium [Moles/Vol] 140 mmol/L 136-145 [facility] Work Phone: Blood erythrocytes count (nu mber/volume)on 01-27-2022 RBC (Bld) [#/Vol] 4.54 10*6/uL 4.2-5.4 [facility] Work Phone: Blood hemoglobin measurement (mass/volume)on 01-27-2022 Hemoglobin (Bld) [Mass/Vol] 14.2 g/dL 12.0-15.0 [facility] Work Phone: Blood lymphocytes/100 leukoc yteson 01-27-2022 Lymphocytes/100 WBC (Bld) 32.8 % 19-41 [facility] Work Phone: Blood manual differential co mment interpretation (narrative result)on 01-27-2022 Manual differential comment Albert (Bld) [Interp] SEE COMMENT [facility] Work Phone: Blood monocytes/100 leukocyt eson 01-27-2022 Monocytes/100 WBC (Bld) 6.8 % 0-10 [facility] Work Phone: Blood platelet adequacy dete ction by light microscopyon 01-27-2022 Platelets LM Ql (Bld) ADEQUATE ADEQ [facility] Work Phone: Blood platelet mean volumeon 01-27-2022 Platelet mean volume (Bld) [Entitic vol] 9.7 fL 6.2-12.0 [facility] Work Phone: Determination of erythrocyte mean corpuscular volume (MCV)on 01-27-2022 MCV (RBC) [Entitic vol] 96.3 fL 81-99 [facility] Work Phone: Hematocrit Auto (Bld) [Volum e fraction]on 01-27-2022 Hematocrit (Bld) [Volume fraction] 43.7 % 37-47 [facility] Work Phone: Laboratory - Chemistry and C hemistry - challengeon 01-27-2022 ALP [Catalytic activity/Vol] 133 U/L 45-117 [facility] Work Phone: ALT [Catalytic activity/Vol] 20 U/L 13-56 [facility] Work Phone: [phone] CO2 [Moles/Vol] 25.0 mmol/L 21.0-32.0 [facility] Work Phone: [phone] Globulin (S) [Mass/Vol] 3.9 g/dL 2.2-4.2 [facility] Work Phone: [phone] Urea nitrogen/Creatinine [Mass ratio] 10.4 mg/mg 10-20 [facility] Work Phone: Laboratory - Hematology and Cell countson 01-27-2022 Anisocytosis Ql (Bld) 1+ [facility] Work Phone: [phone] Erythrocyte distribution width (RBC) [Entitic vol] 43.8 fL 35.1-43.9 [facility] Work Phone: [phone] Erythrocyte distribution width (RBC) [Ratio] 12.4 % 11.6-14.6 [facility] Work Phone: [phone] Immature granulocytes/100 WBC (Bld) 1.100 % 0.0-0.9 [facility] Work Phone: [phone] Comment on above: IG% - Immature Granu locytes (promyelocytes, myelocytes and metamyelocytes) > 1% indicates that a LEFT SHIFT is Present. MCH (RBC) [Entitic mass] 31.3 pg 27.0-32.0 [facility] Work Phone: [phone] Nucleated RBC/100 WBC (Bld) [Ratio] 0 % 0-5 [facility] Work Phone: [phone] MCHC Auto (RBC) [Mass/Vol]on 01-27-2022 MCHC (RBC) [Mass/Vol] 32.5 g/dL 32-36 [facility] Work Phone: Macrocytes detectionon 01-27 Macrocytes Ql (Bld) 1+ [facility] Work [facility]: No Panel Informationon 01-27 Atypical Lymphocytes 1+ % [facility] Work Phone: Estimated Creatinine Clearance Calc 141.65 ml/min [facility] Work Phone: [phone] Estimated GFR (MDRD) Amer 174 mL/min >60 [facility] Work Phone: [phone] Comment on above: GFR Calc Estimated GFR (MDRD) Non-Af Amer 144 mL/min >60 [facility] Work Phone: Comment on above: Non- GFR Calc Platelets bldon 01-27-2022 Platelets (Bld) [#/Vol] 400 10*3/uL 150-450 [facility] Work Phone: RBC morphologyon 01-27-2022 RBC morphology finding Nom (Bld) N CHROM NORMAL NORM C&C [facility] Work Phone: Serum or plasma albumin tania urement (mass/volume)on 01-27-2022 Albumin [Mass/Vol] 3.0 g/dL 3.2-5.0 [facility] Work Phone: [phone] Serum or plasma albumin/glob ulin mass ratioon 01-27-2022 Albumin/Globulin [Mass ratio] 0.8 {ratio} 0.9-2.4 [facility] Work Phone: [phone] Serum or plasma calcium tania urement (mass/volume)on 01-27-2022 Calcium [Mass/Vol] 8.8 mg/dL 8.5-10.1 [facility] Work Phone: [phone] Serum or plasma creatinine m easurement (mass/volume)on 01-27-2022 Creatinine [Mass/Vol] 0.48 mg/dL 0.55-1.02 [facility] Work Phone: Comment on above: The validity of the calculated GFR & GFRAA in patients over 70 years has not been determined. Clinical correlation is essential. Serum or plasma urea nitroge n measurement (mass/volume)on 01-27-2022 Urea nitrogen [Mass/Vol] 5 mg/dL 7-18 [facility] Work Phone: [phone] Thin prep Papanicolaou smear with manual screeningon 01-27-2022 Thin prep Papanicolaou smear with manual screening 20 U/L 15-37 [facility] Work Phone: Thin prep Papanicolaou smear with manual screening 7 5-15 [facility] Work Phone: Basic Metabolic Panelon 04-25 Calcium [Mass/Vol] 8.5 mg/dL Normal 8.4-10.4 [facility] Comment on above: Performed By: #### C UA2 #### [address] [address] [address] [place], [place] Glucose [Mass/Vol] 79 mg/dL Normal 70-100 [facility] Comment on above: Performed By: #### C UA2 #### [address] [address] [address] [place], [place] Anion gap [Moles/Vol] 6 Normal [facility] Comment on above: Performed By: #### C UA2 #### [address] [address] [address] [place], [place] CO2 [Moles/Vol] 25 mmol/L Normal 22-30 [facility] Comment on above: Performed By: #### C UA2 #### [address] [address] [address] [place], [place] Creatinine [Mass/Vol] 0.61 mg/dL Normal 0.52-1.25 [facility] Comment on above: Performed By: #### C UA2 #### [address] [address] [address] [place], [place] GFR/1.73 sq M predicted among blacks MDRD (S/P/Bld) [Vol rate/Area] mL/min/{1.73_m2} Normal >60 [facility] Comment on above: Performed By: #### C UA2 #### [address] [address] [address] [place], [place] GFR/1.73 sq M predicted among non-blacks MDRD (S/P/Bld) [Vol rate/Area] mL/min/{1.73_m2} Normal >60 [facility] Comment on above: Result Comment: KDIG O guidelines provide the following GFR categories: Stage GFR(ml/min/1.73 m2) Terms G1 >=90 Normal or high G2 60-89 Mildly decreased* G3a 45-59 Mildly to moderately decreased G3b 30-44 Moderately to severely decreased G4 15-29 Severely decreased G5 <15 Kidney failure *Relative to young adult level. In the absence of evidence of kidney damage, neither GFR category G1 nor G2 fulfill the criteria for CKD. The CKD-EPI equation is validated in individuals 18 years of age and older. Currently the best equation for estimating glomerular filtration rate (GFR) from serum creatinine in children is the Bedside Mejia equation. It is less accurate in patients with extremes of muscle mass, restriction of dietary protein, ingestion of creatine, extra-renal metabolism of creatinine, or treatment with medications that affect renal tubular creatinine secretion. Performed By: #### C UA2 #### [address] [address] [address] [place], [place] Urea nitrogen [Mass/Vol] 5 mg/dL Low 7-20 [facility] Comment on above: Performed By: #### C UA2 #### [address] [address] [place], [place] Potassium [Moles/Vol] 3.6 mmol/L Normal 3.5-5.1 [facility] Comment on above: Performed By: #### C UA2 #### [address] [address] [place], [place] Chloride [Moles/Vol] 108 mmol/L High 98-107 [facility] Comment on above: Performed By: #### C UA2 #### [address] [address] [address] [place], [place] Sodium [Moles/Vol] 139 mmol/L Normal 135-145 [facility] Comment on above: Performed By: #### C UA2 #### [address] Basic Metabolic Panel w/ Ref hailey to MGon 05-15-2020 Anion gap [Moles/Vol] 6 mmol/L [facility], [place] Calcium [Mass/Vol] 8.5 mg/dL 8.4 - 10. 4 mg/dL [facility], [place] Chloride [Moles/Vol] 108 mmol/L High 98 - 10 7 mmol/L [place] CO2 [Moles/Vol] 25 mmol/L 22 - 30 mmol/L [place] Creatinine [Mass/Vol] 0.61 mg/dL 0.52 - 1.25 mg/dL [place] EGFR IF NonAfrican Tajik >90.0 >60 mL/min [place] Comment on above: KDIGO guidelines pro vide the following GFR categories: Stage GFR(ml/min/1.73 m2) Terms G1 >=90 Normal or high G2 60-89 Mildly decreased* G3a 45-59 Mildly to moderately decreased G3b 30-44 Moderately to severely decreased G4 15-29 Severely decreased G5 <15 Kidney failure *Relative to young adult level. In the absence of evidence of kidney damage, neither GFR category G1 nor G2 fulfill the criteria for CKD. The CKD-EPI equation is validated in individuals 18 years of age and older. Currently the best equation for estimating glomerular filtration rate (GFR) from serum creatinine in children is the Bedside Mejia equation. It is less accurate in patients with extremes of muscle mass, restriction of dietary protein, ingestion of creatine, extra-renal metabolism of creatinine, or treatment with medications that affect renal tubular creatinine secretion. GFR/1.73 sq M predicted among blacks MDRD (S/P/Bld) [Vol rate/Area] mL/min/{1.73_m2} >60 mL/min [place] Glucose [Mass/Vol] 79 mg/dL 70 - 100 mg/dL [place] Interpretation and review of laboratory results Abnormal [place] Potassium [Moles/Vol] 3.6 mmol/L 3.5 - 5.1 mmol/L [place] Sodium [Moles/Vol] 139 mmol/L 135 - 145 mmol/L [place] Urea nitrogen [Mass/Vol] 5 mg/dL Low 7 - 20 mg/dL [place] Test Performed by [address] [address] [place], [place] CBCon 05-15-2020 Erythrocyte distribution width (RBC) [Ratio] 13.0 % 11.5 - 14.5 % [place] Hematocrit (Bld) [Volume fraction] 38.4 % 35 - 47 % [place] Hemoglobin (Bld) [Mass/Vol] 12.9 g/dL 11.7 - 16 g/dL [place] MCH (RBC) [Entitic mass] 32.7 pg 26 - 34 pg [place] MCHC (RBC) [Mass/Vol] 33.6 % 32 - 36 % [place] MCV (RBC) [Entitic vol] 97.6 fL 79 - 98 fL [place], [place] Platelet mean volume (Bld) [Entitic vol] 8.7 fL 7.4 - 10.4 fL [place] Platelets (Bld) [#/Vol] 275 10*3/uL 140 - 440 10*3/uL [place] RBC (Bld) [#/Vol] 3.94 10*6/uL 3.8 - 5.2 10*6/uL [place] WBC (Bld) [#/Vol] 5.9 10*3/uL 3.6 - 10.7 10*3/uL [place] Test Performed by [facility], [address] [place] [id number] [place] [address] Hemogramon 05-15-2020 Erythrocyte distribution width (RBC) [Ratio] 13.0 % Normal 11.5-14.5 [facility] Comment on above: Performed By: #### C UA2 #### [address] [address] [place] [address] Hematocrit (Bld) [Volume fraction] 38.4 % Normal 35.0-47.0 [facility] Comment on above: Performed By: #### C UA2 #### [address] [address] [place] [address] Hemoglobin (Bld) [Mass/Vol] 12.9 g/dL Normal 11.7-16.0 [facility] Comment on above: Performed By: #### C UA2 #### [address] [address] [place] [address] MCH (RBC) [Entitic mass] 32.7 pg Normal 26.0-34.0 [facility] Comment on above: Performed By: #### C UA2 #### [facility] [address], [place] MCHC (RBC) [Mass/Vol] 33.6 % Normal 32.0-36.0 [facility] Comment on above: Performed By: #### C UA2 #### [facility] [address], [place] MCV (RBC) [Entitic vol] 97.6 fL Normal 79.0-98.0 [facility] Comment on above: Performed By: #### C UA2 #### [facility] [address], [place] Platelet mean volume (Bld) [Entitic vol] 8.7 fL Normal 7.4-10.4 [facility] Comment on above: Performed By: #### C UA2 #### [facility] [address], [place] Platelets (Bld) [#/Vol] 275 10*3/uL Normal 140-440 [facility] Comment on above: Performed By: #### C UA2 #### [facility] [address], [place] RBC (Bld) [#/Vol] 3.94 10*6/uL Normal 3.80-5.20 [facility] Comment on above: Performed By: #### C UA2 #### [facility] [address], [place] WBC (Bld) [#/Vol] 5.9 10*3/uL Normal 3.6-10.7 [facility] Comment on above: Performed By: #### C UA2 #### [facility] [address], [place] Basic Metabolic Panelon 04-25 Calcium [Mass/Vol] 9.0 mg/dL Normal 8.4-10.4 [facility] Comment on above: Performed By: #### H EMDF, BMP3 #### [facility] [address], [place] Glucose [Mass/Vol] 132 mg/dL High 70-100 [facility] Comment on above: Performed By: #### H EMDF, BMP3 #### [facility] [address], [place] Urea nitrogen [Mass/Vol] 10 mg/dL Normal 7-20 [facility] Comment on above: Performed By: #### H EMDF, BMP3 #### [facility] [address], [place] Anion gap [Moles/Vol] 12 Normal [facility] Comment on above: Performed By: #### H EMDF, BMP3 #### [facility] [address], [place] CO2 [Moles/Vol] 16 mmol/L Low 22-30 [facility] Comment on above: Performed By: #### H EMDF, BMP3 #### [facility] [address], [place] Creatinine [Mass/Vol] 0.58 mg/dL Normal 0.52-1.25 [facility] Comment on above: Performed By: #### H EMDF, BMP3 #### [facility] [address], [place] GFR/1.73 sq M predicted among blacks MDRD (S/P/Bld) [Vol rate/Area] mL/min/{1.73_m2} Normal >60 [facility] Comment on above: Performed By: #### H EMDF, BMP3 #### [facility] [address], [place] GFR/1.73 sq M predicted among non-blacks MDRD (S/P/Bld) [Vol rate/Area] mL/min/{1.73_m2} Normal >60 [facility] Comment on above: Result Comment: KDIG O guidelines provide the following GFR categories: Stage GFR(ml/min/1.73 m2) Terms G1 >=90 Normal or high G2 60-89 Mildly decreased* G3a 45-59 Mildly to moderately decreased G3b 30-44 Moderately to severely decreased G4 15-29 Severely decreased G5 <15 Kidney failure *Relative to young adult level. In the absence of evidence of kidney damage, neither GFR category G1 nor G2 fulfill the criteria for CKD. The CKD-EPI equation is validated in individuals 18 years of age and older. Currently the best equation for estimating glomerular filtration rate (GFR) from serum creatinine in children is the Bedside Mejia equation. It is less accurate in patients with extremes of muscle mass, restriction of dietary protein, ingestion of creatine, extra-renal metabolism of creatinine, or treatment with medications that affect renal tubular creatinine secretion. Performed By: #### H TOBY GODDARD3 #### [address] Chloride [Moles/Vol] 109 mmol/L High 98-107 [facility] Comment on above: Performed By: #### H TOBY GODDARD3 #### [address] Potassium [Moles/Vol] 4.3 mmol/L Normal 3.5-5.1 [facility] Comment on above: Performed By: #### H TOBY GODDARD3 #### [address] Sodium [Moles/Vol] 137 mmol/L Normal 135-145 [facility] Comment on above: Performed By: #### H TOBY GODDARD3 #### [address] Basic Metabolic Panel w/ Ref hailey to MGon 05-14-2020 Anion gap [Moles/Vol] 12 mmol/L [place] Calcium [Mass/Vol] 9.0 mg/dL 8.4 - 10. 4 mg/dL [place] Chloride [Moles/Vol] 109 mmol/L High 98 - 10 7 mmol/L [place] CO2 [Moles/Vol] 16 mmol/L Low 22 - 30 mmol/L [place] Creatinine [Mass/Vol] 0.58 mg/dL 0.52 - 1.25 mg/dL [place] EGFR IF NonAfrican [place] >90.0 >60 mL/min [place] Comment on above: KDIGO guidelines pro vide the following GFR categories: Stage GFR(ml/min/1.73 m2) Terms G1 >=90 Normal or high G2 60-89 Mildly decreased* G3a 45-59 Mildly to moderately decreased G3b 30-44 Moderately to severely decreased G4 15-29 Severely decreased G5 <15 Kidney failure *Relative to young adult level. In the absence of evidence of kidney damage, neither GFR category G1 nor G2 fulfill the criteria for CKD. The CKD-EPI equation is validated in individuals 18 years of age and older. Currently the best equation for estimating glomerular filtration rate (GFR) from serum creatinine in children is the Bedside Mejia equation. It is less accurate in patients with extremes of muscle mass, restriction of dietary protein, ingestion of creatine, extra-renal metabolism of creatinine, or treatment with medications that affect renal tubular creatinine secretion. GFR/1.73 sq M predicted among blacks MDRD (S/P/Bld) [Vol rate/Area] mL/min/{1.73_m2} >60 mL/min [place] Glucose [Mass/Vol] 132 mg/dL High 70 - 100 mg/dL [place] Interpretation and review of laboratory results Abnormal [place] Potassium [Moles/Vol] 4.3 mmol/L 3.5 - 5.1 mmol/L [place] Sodium [Moles/Vol] 137 mmol/L 135 - 145 mmol/L [place] Urea nitrogen [Mass/Vol] 10 mg/dL 7 - 20 mg/dL [place] Test Performed by [facility], [address] [place] [id number] [place] CBCon 05-14-2020 Erythrocyte distribution width (RBC) [Ratio] 12.9 % 11.5 - 14.5 % [place] Hematocrit (Bld) [Volume fraction] 43.8 % 35 - 47 % [place] Hemoglobin (Bld) [Mass/Vol] 14.6 g/dL 11.7 - 16 g/dL [place] MCH (RBC) [Entitic mass] 32.5 pg 26 - 34 pg [place] MCHC (RBC) [Mass/Vol] 33.4 % 32 - 36 % [place] MCV (RBC) [Entitic vol] 97.4 fL 79 - 98 fL [place] Platelet mean volume (Bld) [Entitic vol] 8.7 fL 7.4 - 10.4 fL [place] Platelets (Bld) [#/Vol] 314 10*3/uL 140 - 440 10*3/uL [place] RBC (Bld) [#/Vol] 4.50 10*6/uL 3.8 - 5.2 10*6/uL [place] WBC (Bld) [#/Vol] 7.8 10*3/uL 3.6 - 10.7 10*3/uL [place] Test Performed by [facility], [address] [place], [place] [id number] [place] [address] Complete Urinalysison 2019 Appearance (U) Clear Normal Clear [facility] Comment on above: Result Comment: . Performed By: #### H EMDF, BMP3 #### [address] [place] [address] [address] [place], [place] Bilirubin,Urine Negative Normal Negative [facility] Comment on above: Result Comment: . Performed By: #### H EMDF, BMP3 #### [address] [address] [place], [place] Color (U) Light-Yellow Normal Lt. Yellow [facility] Comment on above: Result Comment: . Performed By: #### H EMDF, BMP3 #### [address] [address] [place], [place] Glucose Ql (U) Normal Normal Normal (<70) [facility] Comment on above: Result Comment: . Performed By: #### H EMDF, BMP3 #### [address] [address] [place] [address] Ketone,Urine Negative Normal Negative [facility] Comment on above: Result Comment: . Performed By: #### H EMDF, BMP3 #### [address] Leukocytes,Urine Negative Normal Negative [facility] Comment on above: Result Comment: . Performed By: #### H EMDF, BMP3 #### [place] [address] [address] [place], [place] Mucous Threads Few Normal Negative [facility] Comment on above: Result Comment: . Performed By: #### H EMDF, BMP3 #### [address] [place] [address] [address] [place], [place] Nitrites,Urine Negative Normal Negative [facility] Comment on above: Result Comment: . Performed By: #### H EMDF, BMP3 #### [address] [place] [address] [address] [place], [place] Occult Blood,Urine 0.06 mg/dL Abnormal Negative [facility] Comment on above: Result Comment: . Performed By: #### H EMDF BMP3 #### [address] [address] [place], [place] pH (U) 6.0 Normal 5.0-8.0 [facility] Comment on above: Result Comment: . Performed By: #### H EMDF BMP3 #### [address] [address] [place], [place] Protein (U) [Mass/Vol] Negative Normal Negative [facility] Comment on above: Result Comment: . Performed By: #### H EMDF BMP3 #### [address] [place] [address] [address] [place], [place] RBC LM.HPF (Urine sed) [#/Area] 3 - 5 Abnormal 0-2 [facility] Comment on above: Result Comment: . Performed By: #### H EMDF, BMP3 #### [address] [place] [address] [address] [place], [place] Specific [place],Urine > 1.030 Abnormal 1.005 - 1.030 [facility] Comment on above: Result Comment: . Performed By: #### H EMDF, BMP3 #### [address] Squamous Epithelial 3 - 5 Normal 3-5 [facility] Comment on above: Result Comment: . Performed By: #### H EMDF, BMP3 #### [address] [place] [address] [address] [place], [place] Urobilinogen,Urine Normal Normal Normal (0-1) [facility] Comment on above: Result Comment: . Performed By: #### H RUPESH BMP3 #### [address] [address] [place], [place] WBC LM.HPF (Urine sed) [#/Area] 0 - 2 Normal 0-5 [facility] Comment on above: Result Comment: . Performed By: #### H RUPESH BMP3 #### [address] Hemogramon 05-14-2020 Erythrocyte distribution width (RBC) [Ratio] 12.9 % Normal 11.5-14.5 [facility] Comment on above: Performed By: #### H RUPESH BMP3 #### [address] Hematocrit (Bld) [Volume fraction] 43.8 % Normal 35.0-47.0 [facility] Comment on above: Performed By: #### H RUPESH BMP3 #### [address] [place] [address] [place], [place] Hemoglobin (Bld) [Mass/Vol] 14.6 g/dL Normal 11.7-16.0 [facility] Comment on above: Performed By: #### H RUPESH BMP3 #### [address] MCH (RBC) [Entitic mass] 32.5 pg Normal 26.0-34.0 [facility] Comment on above: Performed By: #### H RUPESH BMP3 #### [address] [place] [address] [address] [place] MCHC (RBC) [Mass/Vol] 33.4 % Normal 32.0-36.0 [facility] Comment on above: Performed By: #### H RUPESH BMP3 #### [address] MCV (RBC) [Entitic vol] 97.4 fL Normal 79.0-98.0 [facility] Comment on above: Performed By: #### H RUPESH BMP3 #### [address] [place] [address] [address] [place] Platelet mean volume (Bld) [Entitic vol] 8.7 fL Normal 7.4-10.4 [facility] Comment on above: Performed By: #### H EMDF, BMP3 #### [address] [address] [address] [place] Platelets (Bld) [#/Vol] 314 10*3/uL Normal 140-440 [facility] Comment on above: Performed By: #### H EMDF, BMP3 #### [address] [place] [address] [address] [place] RBC (Bld) [#/Vol] 4.50 10*6/uL Normal 3.80-5.20 [facility] Comment on above: Performed By: #### H EMDF, BMP3 #### [address] [place] [address] [address] [place] WBC (Bld) [#/Vol] 7.8 10*3/uL Normal 3.6-10.7 [facility] Comment on above: Performed By: #### H EMDF, BMP3 #### [address] [place] [address] [address] [place], [place] TS GELon 05-14-2020 TS GEL ABO Group: O Rh, Gel: POS Antibody Screen Gel: NEG Normal [facility] Comment on above: Performed By: #### H EMDF, BMP3 #### [address] [address] [place], [place] Basic Metabolic Panelon 04-25 Calcium [Mass/Vol] 9.6 mg/dL Normal 8.4-10.4 [facility] Comment on above: Performed By: #### H EMDF, PT, LACT3, BMP3, LFT3, LIPA4 #### [address] [place] [address] [address] [place] Glucose [Mass/Vol] 122 mg/dL High 70-100 [facility] Comment on above: Performed By: #### H EMDF, PT, LACT3, BMP3, LFT3, LIPA4 #### [place] [address] [address] [place] Urea nitrogen [Mass/Vol] 11 mg/dL Normal 7-20 [facility] Comment on above: Performed By: #### H EMDF, PT, LACT3, BMP3, LFT3, LIPA4 #### [address] [address] [place], [place] Anion gap [Moles/Vol] 11 Normal [facility] Comment on above: Performed By: #### H EMDF, PT, LACT3, BMP3, LFT3, LIPA4 #### [address] [address] [place], [place] CO2 [Moles/Vol] 19 mmol/L Low 22-30 [facility] Comment on above: Performed By: #### H EMDF, PT, LACT3, BMP3, LFT3, LIPA4 #### [address] Creatinine [Mass/Vol] 0.59 mg/dL Normal 0.52-1.25 [facility] Comment on above: Performed By: #### H EMDF, PT, LACT3, BMP3, LFT3, LIPA4 #### [address] [address] [place], [place] GFR/1.73 sq M predicted among blacks MDRD (S/P/Bld) [Vol rate/Area] mL/min/{1.73_m2} Normal >60 [facility] Comment on above: Performed By: #### H EMDF, PT, LACT3, BMP3, LFT3, LIPA4 #### [address] [address] [place], [place] GFR/1.73 sq M predicted among non-blacks MDRD (S/P/Bld) [Vol rate/Area] mL/min/{1.73_m2} Normal >60 [facility] Comment on above: Result Comment: KDIG O guidelines provide the following GFR categories: Stage GFR(ml/min/1.73 m2) Terms G1 >=90 Normal or high G2 60-89 Mildly decreased* G3a 45-59 Mildly to moderately decreased G3b 30-44 Moderately to severely decreased G4 15-29 Severely decreased G5 <15 Kidney failure *Relative to young adult level. In the absence of evidence of kidney damage, neither GFR category G1 nor G2 fulfill the criteria for CKD. The CKD-EPI equation is validated in individuals 18 years of age and older. Currently the best equation for estimating glomerular filtration rate (GFR) from serum creatinine in children is the Bedside Mejia equation. It is less accurate in patients with extremes of muscle mass, restriction of dietary protein, ingestion of creatine, extra-renal metabolism of creatinine, or treatment with medications that affect renal tubular creatinine secretion. Performed By: #### H EMDF, PT, LACT3, BMP3, LFT3, LIPA4 #### [address] Potassium [Moles/Vol] 3.7 mmol/L Normal 3.5-5.1 [facility] Comment on above: Performed By: #### H EMDF, PT, LACT3, BMP3, LFT3, LIPA4 #### [address] Sodium [Moles/Vol] 138 mmol/L Normal 135-145 [facility] Comment on above: Performed By: #### H EMDF, PT, LACT3, BMP3, LFT3, LIPA4 #### [address] [address] [place], [place] Chloride [Moles/Vol] 108 mmol/L High 98-107 [facility] Comment on above: Performed By: #### H EMDF, PT, LACT3, BMP3, LFT3, LIPA4 #### [address] [address] [place], [place] Anion gap [Moles/Vol] 11 mmol/L [place], [place] Calcium [Mass/Vol] 9.6 mg/dL 8.4 - 10. 4 mg/dL [place], [place] Chloride [Moles/Vol] 108 mmol/L High 98 - 10 7 mmol/L [place] CO2 [Moles/Vol] 19 mmol/L Low 22 - 30 mmol/L [place] Creatinine [Mass/Vol] 0.59 mg/dL 0.52 - 1.25 mg/dL [place] EGFR IF NonAfrican Tajik >90.0 >60 mL/min [place], [place] Comment on above: KDIGO guidelines pro vide the following GFR categories: Stage GFR(ml/min/1.73 m2) Terms G1 >=90 Normal or high G2 60-89 Mildly decreased* G3a 45-59 Mildly to moderately decreased G3b 30-44 Moderately to severely decreased G4 15-29 Severely decreased G5 <15 Kidney failure *Relative to young adult level. In the absence of evidence of kidney damage, neither GFR category G1 nor G2 fulfill the criteria for CKD. The CKD-EPI equation is validated in individuals 18 years of age and older. Currently the best equation for estimating glomerular filtration rate (GFR) from serum creatinine in children is the Bedside Mejia equation. It is less accurate in patients with extremes of muscle mass, restriction of dietary protein, ingestion of creatine, extra-renal metabolism of creatinine, or treatment with medications that affect renal tubular creatinine secretion. GFR/1.73 sq M predicted among blacks MDRD (S/P/Bld) [Vol rate/Area] mL/min/{1.73_m2} >60 mL/min [place], [place] Glucose [Mass/Vol] 122 mg/dL High 70 - 100 mg/dL [place] Interpretation and review of laboratory results Abnormal [place] Potassium [Moles/Vol] 3.7 mmol/L 3.5 - 5.1 mmol/L [place] Sodium [Moles/Vol] 138 mmol/L 135 - 145 mmol/L [place] Urea nitrogen [Mass/Vol] 11 mg/dL 7 - 20 mg/dL [place] Blood Occult Stool Screen #1 on 05-13-2020 Hemoglobin.gastrointest inal Ql (Stl) Negative Negative NA [place], [place] Test Performed by [facility], [address] [place] [id number] [place], [place] CT Abdomen Pelvis W Contrast on 05-13-2020 Patient Name: ORTIZ JACOBS ---CT--- Exam Date/Time 05/13/2020 20:56:[address] Abdomen/Pelvis w/ IV Contrast (IV Onl Ordering Physician [id number] ALEJANDRO Accession Number [id number] CPT4 Codes 79799 (CT Abdomen/Pelvis w/ IV Contrast (IV Onl), Q9967 (CT ISOVUE 370MG/ML&[id number] &1) Reason For Exam Abdominal pain, no bowel movement 4 days, dark tarry stools Report EXAMINATION: CT of the Abdomen and Pelvis with Contrast. COMPARISON: 09/13/2019. REASON FOR STUDY: Abdominal pain, dark tarry stools. TECHNIQUE: Contiguous multiplanar 3 mm images were extended from the lung bases through the pubic symphysis after intravenous infusion of 75 mL of Isovue-370. FINDINGS: Lung Bases: No abnormality noted. Solid Organs: Spleen, pancreas and adrenal glands appear normal. Hepatobiliary System: Liver is diffusely hypoattenuating. Extrahepatic bile ducts are moderately dilated without obstructive etiology. Gallbladder has been removed. System: Subcentimeter hypoattenuating lesions are observed in both kidneys. Renal collecting systems and ureters are not dilated. Bladder appears normal. There are signs of prior hysterectomy; no adnexal abnormality is observed. GI System: Stomach appears normal gastric stimulators present anteriorly at the body. Small bowel caliber, balderrama and mucosal pattern appear normal. Numerous colonic diverticulae are present, predominating in the sigmoid segment. Appendix Is not visualized. Peritoneum, Retroperitoneum And Mesentery: No inflammatory change, free fluid or abnormal mass is shown. Vasculature: No abnormality seen. Bones: Prior L4 through S1 transpediculate fusion. Soft Tissues: No significant findings. CONCLUSION(S): 1. Colonic diverticulosis and no evidence of diverticulitis; intraluminal mass is not excluded in the absence of bowel prep and/or enteric contrast. 2. Minimal bilateral renal cysts. 3. Hepatic steatosis. 4. Moderate extrahepatic biliary dilatation post-cholecystectomy. Report Dictated on --- Final --- Dictated: 05/13/2020 9:01 pm Dictating Physician: MD NUNES B NELSON Signed Date and Time: 05/13/2020 9:10 pm Signed by: MD NUNES B NELSON Transcribed Date and Time: 05/13/2020 9:01 [facility] [place], [place], [place] Incoming Radiology Results From [facility] - 05/13/2020 9:11 PM EDT Patient Name: ORTIZ JACOBS ---CT--- Exam Date/Time 05/13/2020 20:56:[address] Abdomen/Pelvis w/ IV Contrast (IV Onl Ordering Physician [id number] PbNEGAR RODRIGUEZ Accession Number [id number] CPT4 Codes 32733 (CT Abdomen/Pelvis w/ IV Contrast (IV Onl), Q9967 (CT ISOVUE 370MG/ML&[id number]&ML &1) Reason For Exam Abdominal pain, no bowel movement 4 days, dark tarry stools Report EXAMINATION: CT of the Abdomen and Pelvis with Contrast. COMPARISON: 09/13/2019. REASON FOR STUDY: Abdominal pain, dark tarry stools. TECHNIQUE: Contiguous multiplanar 3 mm images were extended from the lung bases through the pubic symphysis after intravenous infusion of 75 mL of Isovue-370. FINDINGS: Lung Bases: No abnormality noted. Solid Organs: Spleen, pancreas and adrenal glands appear normal. Hepatobiliary System: Liver is diffusely hypoattenuating. Extrahepatic bile ducts are moderately dilated without obstructive etiology. Gallbladder has been removed. System: Subcentimeter hypoattenuating lesions are observed in both kidneys. Renal collecting systems and ureters are not dilated. Bladder appears normal. There are signs of prior hysterectomy; no adnexal abnormality is observed. GI System: Stomach appears normal gastric stimulators present anteriorly at the body. Small bowel caliber, balderrama and mucosal pattern appear normal. Numerous colonic diverticulae are present, predominating in the sigmoid segment. Appendix Is not visualized. Peritoneum, Retroperitoneum And Mesentery: No inflammatory change, free fluid or abnormal mass is shown. Vasculature: No abnormality seen. Bones: Prior L4 through S1 transpediculate fusion. Soft Tissues: No significant findings. CONCLUSION(S): 1. Colonic diverticulosis and no evidence of diverticulitis; intraluminal mass is not excluded in the absence of bowel prep and/or enteric contrast. 2. Minimal bilateral renal cysts. 3. Hepatic steatosis. 4. Moderate extrahepatic biliary dilatation post-cholecystectomy. Report Dictated on --- Final --- Dictated: 05/13/2020 9:01 pm Dictating Physician: MD DES, Janice TAYLOR Signed Date and Time: 05/13/2020 9:10 pm Signed by: MD NUNES B NELSON Transcribed Date and Time: 05/13/2020 9:01 [facility], [place] CT Abdomen/Pelvis w/ Contras ton 05-13-2020 CT Abdomen/Pelvis w/ Contrast Patient Name: ORTIZ JACOBS CT Exam Date/Time 05/13/2020 20:56:[address] Abdomen/Pelvis w/ IV Contrast (IV Onl Ordering Physician [id number] ALEJANDRO Accession Number [id number] CPT4 Codes 07613 (CT Abdomen/Pelvis w/ IV Contrast (IV Onl), Q9967 (CT ISOVUE 370MG/[id number] ndMLand1) Reason For Exam Abdominal pain, no bowel movement ?4 days, dark tarry stools Report EXAMINATION: CT of the Abdomen and Pelvis with Contrast. COMPARISON: 09/13/2019. REASON FOR STUDY: Abdominal pain, dark tarry stools. TECHNIQUE: Contiguous multiplanar 3 mm images were extended from the lung bases through the pubic symphysis after intravenous infusion of 75 mL of Isovue-370. FINDINGS: Lung Bases: No abnormality noted. Solid Organs: Spleen, pancreas and adrenal glands appear normal. Hepatobiliary System: Liver is diffusely hypoattenuating. Extrahepatic bile ducts are moderately dilated without obstructive etiology. Gallbladder has been removed. System: Subcentimeter hypoattenuating lesions are observed in both kidneys. Renal collecting systems and ureters are not dilated. Bladder appears normal. There are signs of prior hysterectomy; no adnexal abnormality is observed. GI System: Stomach appears normal gastric stimulators present anteriorly at the body. Small bowel caliber, balderrama and mucosal pattern appear normal. Numerous colonic diverticulae are present, predominating in the sigmoid segment. Appendix Is not visualized. Peritoneum, Retroperitoneum And Mesentery: No inflammatory change, free fluid or abnormal mass is shown. Vasculature: No abnormality seen. Bones: Prior L4 through S1 transpediculate fusion. Soft Tissues: No significant findings. CONCLUSION(S): 1. Colonic diverticulosis and no evidence of diverticulitis; intraluminal mass is not excluded in the absence of bowel prep and/or enteric contrast. 2. Minimal bilateral renal cysts. 3. Hepatic steatosis. 4. Moderate extrahepatic biliary dilatation post-cholecystectomy. Report Dictated on Final Dictated: 05/13/2020 9:01 pm Dictating Physician: MD NUNES B NELSON Signed Date and Time: 05/13/2020 9:10 pm Signed by: MD NUNES B NELSON Transcribed Date and Time: 05/13/2020 9:01 [facility] ED Provider Noteon 0 ED Provider Note Emergency Department Encounter [facility] EMERGENCY DEPT Patient: Ortiz Jacobs : 1970 Date of Evaluation: 05/13/2020 ED Supervising Physician: Augustine Rodriguez MD I independently examined and evaluated Ortiz Jacobs. In brief, Ortiz Jacobs is a 50 y.o. female reports past medical history including prior appendectomy, prior cholecystectomy, multiple abdominal surgeries, gastroparesis s/p gastrointestinal stimulator placement, presents with concern for abdominal pain. Patient reports symptoms for the last 3 days, including diffuse abdominal pain, abdominal distention, constipation, nausea and vomiting food-like content, she also reports having minimal stool output that was black, shooting pain from her umbilicus to her rectum with bearing down. Patient denies fever chills, chest pain, short of breath, palpitations, lightheaded she dizziness. Patient denies history of alcohol use, denies history of gastrointestinal bleeding the past. Focused exam: Vital signs: reviewed, as documented General: Unable to find position of comfort, in acute distress due to pain Cardiovascular: regular rhythm, tachycardic Gastrointestinal: soft, distended abdomen, tenderness throughout, more pronounced in the upper quadrants and epigastrium, multiple remote surgical incisions Brief ED course/MDM: Patient is a 50-year-old female, presents as above, with multiple abdominal surgical history, gastroparesis s/p gastrointestinal nerve stimulator, presenting with abdominal pain, constipation, nausea and vomiting, abdominal distention for 3 days, also reporting melena. Presentation concerning for a small bowel obstruction, internal hernia, upper gastrointestinal bleed. Rectal exam performed by resident physician, brown stool, Hemoccult negative. Workup initiated for abdominal pain, including CT abdomen and pelvis, patient has a reported allergy to contrast including nausea, will pretreat with Benadryl, SoluMedrol, discussed with radiologist, comfortable with plan to obtain expedited CT scan with contrast. Symptoms treated with bolus fluids, Zofran, morphine. Additionally will treat with protonix for possible upper gastrointestinal bleed. Labs obtained, reviewed, notable for no significant electrolyte disturbance, unremarkable LFTs and lipase, nonelevated lactate,no leukocytosis, hemoglobin within normal range, BUNs nonelevated,urinalysis nonsuggestive of urinary tract infection. CT abdomen and pelvis obtained, interpreted per radiologist, diverticulosis without diverticulitis. Clinically do not suspect GI bleed. Patient had persistent pain despite multiple doses of analgesic, general surgery consulted, evaluated the patient, suspect gastroparesis with possible malfunctioning gastrointestinal stimulator, also constipation not relieved by manual disimpaction, we will provide enema, recommended medical admission for further symptomatic management, will follow as a consult service for gastrointestinal stimulator interrogation. Patient in agreement with plan, has been discussed with the admitting service, stable for admission. Diagnosis: Abdominal pain, constipation Disposition: Admission All diagnostic, treatment, and disposition decisions were made by myself in conjunction with the [facility]ITA. For all further details of the patient's emergency department visit, please see their documentation. (Please note that portions of this note may have been completed with a voice recognition program. Efforts were made to edit the dictations but occasionally words are mis-transcribed.) Augustine Rodriguez MD [facility] Augustine Rodriguez MD 05/14/20 0349 [facility] ED Provider Note Emergency Department Encounter [facility] EMERGENCY DEPT Patient: Ortiz Jacobs : 1970 Date of Evaluation: 05/13/2020 ED Provider: Negar Rodriguez PA-C As the [id number], I performed a medical screening history and physical exam on this patient. HISTORY OF PRESENT ILLNESS In brief, Ortiz Jacobs is a 50 y.o. female that presents for evaluation of abdominal pain, dark stools and lack of bowel movement ?4 days. States that approximately 4 days ago she began to experience episodes of dark, loose stools. Describes them as almost black in coloration. This is associated with sharp,tearing mid abdominal pain with radiation to her rectum. Following this, she states that she has not had a bowel movement for the past 4 days. Feels similar to a prior episode of bowel obstruction. Patient has a significant abdominal history as well as multiple abdominal surgeries. Some of these include irritable bowel syndrome, gastroesophageal reflux disease, gastroparesis, peptic ulcer disease and inguinal hernia. She has a gastric stimulator implanted for history of gastroparesis. Her abdominal pain is associated with symptoms of nausea and vomiting. No anticoagulation or aspirin use. No fever, chills, dizziness or syncope. No chest pain or dyspnea. No history of gastrointestinal bleed. PHYSICAL EXAM ED Triage Vitals Enc Vitals Group BP 05/13/201836 (!) 145/90 Pulse 05/13/201836 107 Resp 05/13/201836 24 Temp 05/13/201836 96 ?F (35.6 ?C) Temp Source 05/13/201836 Temporal SpO2 05/13/201836 97 % Weight 05/13/201837 210 lb (95.3 kg) Height 05/13/201837 5' 9 (1.753 m) Head Circumference -- Peak Flow -- Pain Score -- Pain Loc -- Pain Edu? -- Excl. in GC? -- On brief exam, patient is afebrile, borderline tachycardic at 107 and hypertensive at 145/90. These vitals will be monitored throughout the patient's emergency department stay. She is a middle-aged adult female who is resting in a wheelchair uncomfortably, holding her abdomen, tearful. Cardiac examination reveals regular rhythm and rate with audible S1-S2. Lungs are clear to auscultation bilaterally. She is tender to palpation at the periumbilical abdominal region without rebound tenderness, rigidity or guarding. Rectal examination deferred as patient is being evaluated in triage. We will initiate diagnostics/treatments as indicated and place in main ED as soon as available. Negar Rodriguez PA-C [employer] Negar Rodriguez PA-C 05/13/201906 [facility] Patient: Ortiz Jacobs :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 Test Performed by [facility], [address] [place] [address] Prothrombin Timeon 0 INR Coag (PPP) [Relative time] 0.9 Normal 0.9-1.1 [facility] Comment on above: Result Comment: Rah mmended Anticoagulant Therapy: SEE BELOW ----- INR of 2.0 - 3.0 : - Prophylaxis of Venous Thrombosis (high-risk surgery) - Treatment of Venous Thrombosis - Treatment of Pulmonary Embolism (Includes tissue heart valves, Acute Myocardial Infarction to prevent systemic embolism, Valvular Heart Disease, and Atrial Fibrillation) ----- INR of 2.5 - 3.5 : - Mechanical Prosthetic Valves (high risk) - If oral anticoagulant therapy is used to prevent Myocardial Infarction Performed By: #### H EMDF, PT, LACT3, BMP3, LFT3, LIPA4 #### [address] PT Coag (PPP) [Time] 9.8 s Normal 9.0-12.0 [facility] Comment on above: Result Comment: . Performed By: #### H EMDF, PT, LACT3, BMP3, LFT3, LIPA4 #### [address] Protime-INRon 05-13-2020 INR Coag (PPP) [Relative time] 0.9 {INR} [place] Comment on above: Recommended Anticoag ulant Therapy: SEE BELOW ----- INR of 2.0 - 3.0 : - Prophylaxis of Venous Thrombosis (high-risk surgery) - Treatment of Venous Thrombosis - Treatment of Pulmonary Embolism (Includes tissue heart valves, Acute Myocardial Infarction to prevent systemic embolism, Valvular Heart Disease, and Atrial Fibrillation) ----- INR of 2.5 - 3.5 : - Mechanical Prosthetic Valves (high risk) - If oral anticoagulant therapy is used to prevent Myocardial Infarction PT Coag (PPP) [Time] 9.8 s 9 - 12 s [place] Comment on above: . TYPE AND SCREENon 05-13-2020 Sodium [Moles/Vol] Negative [place] Sodium [Moles/Vol] Positive [place] Sodium [Moles/Vol] O [place] Test Performed by [facility], [address] [place] [address], [place] [address] [place] Urinalysison 05-13-2020 Appearance (U) Clear Clear NA [place] Comment on above: . Bilirubin Urine Negative Negative mg/dL [place] Comment on above: . Color (U) Light-Yellow Lt. Yellow NA [place] Comment on above: . Glucose, Ur Normal Normal (<70) mg/dL [place] Comment on above: . Interpretation and review of laboratory results Abnormal [place] Ketones Ql (U) Negative Negative mg/dL [place] Comment on above: . LEUKOCYTES, UA Negative Negative La/uL [place] Comment on above: . Mucous Threads Few Negative /[LPF] [place] Comment on above: . Nitrite, Urine Negative Negative NA [place] Comment on above: . Occult Blood,Urine 0.06 mg/dL Abnormal Negative [place] Comment on above: . pH (U) 6.0 [pH] [place] Comment on above: . Protein (U) [Mass/Vol] Negative Negat keo mg/dL [place] Comment on above: . RBC (U) [#/Vol] 3-5 Abnormal 0 - 2 /[HPF] [place] Comment on above: . Specific [place], Urine >1.030 Abnormal M [place] Comment on above: . Squam Epithel, UA 3-5 3 - 5 /[HPF] [place] Comment on above: . Urobilinogen, Urine Normal Normal ( 0-1) mg/dL [place] Comment on above: . WBC, UA 0-2 0 - 5 /[HPF] [place] Comment on above: . Test Performed by [facility], [facility] [place] [address] [facility] CNPN Telephone (PODCCP) ORTIZ JACOBS ([id number]) 1970 F Date Time Provider Department 01/17/20 AMANDEEP LOREDO F PODCCP During your visit today, we recorded the following information about you: Allergies As of Date: 01/17/2020 Noted Allergy Reaction DARVOCET A500 (PROPOXYPHENE N-TRACY*04/30/2011 12 - Shortness of Breath PENICILLINS 04/30/2011 7 - Swelling DARVOCET A500 (PROPOXYPHENE N-TRACY*04/30/2011 16 - Unknown PENICILLINS 04/30/2011 16 - Unknown Date Reviewed: 01/08/2020 Reviewed by: Stephanie (Rn) CLIVE Higgins - Fully Assessed Reason for Visit: Follow Up [171] Cmt: Endy interaction - F/U - attempt made. No answer Prescriptions as of 01/17/2020 Sig: GABAPENTIN 300 MG CAPSULE Take 300 mg by mouth three ti* FLUTICASONE 250 MCG-SALMETERO* Inhale 1 Puff as instructed t* MULTIVITAMIN 50 PLUS TABLET Take 1 tablet by mouth once d* LEVETIRACETAM 250 MG TABLET Take 1,500 mg by mouth twice * MELATONIN 10 MG TABLET Take 10 mg by mouth daily at * ALBUTEROL INHALATION Inhale as instructed twice da* FLONASE ALLERGY RELIEF NASAL Use 1 [place] in the nose twice* * OMEPRAZOLE 20 MG CAPSULE,JULISSA* Take 40 mg by mouth once easton* Problem List As Of Date 01/17/2020 Noted Resolved 1.1 Migraine without aura, not intractable [346*08/12/2011 1.2 Migraine with aura [G43.109] 08/12/2011 4.6 Primary thunderclap headache [339.43] [G*08/12/2011 6.3 Headache attributed to unruptured vascular *08/12/2011 1.2.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 Cerebral edema (HCC) [G93.6] 01/05/2020 01/08/2020 More... Urinary retention [R33.9] 01/05/2020 More... Epilepsy (HCC) [G40.909] 01/05/2020 More... Hyperglycemia [R73.9] 01/05/2020 More... Compression of brainstem (HCC) [G93.5] 01/05/2020 01/08/2020 More... Brain compression (HCC) [G93.5] 01/05/2020 01/08/2020 Stroke of unusual cause (HCC) [I63.9] 01/05/2020 Constipation [K59.00] 01/05/2020 More... Intracranial hypotension [I95.89] 01/06/2020 01/08/2020 More... Muscle spasm of right lower extremity [M62.838] 2020 Obesity, Class I, BMI 30-34.9 [E66.9] 01/09/2020 Intracranial hypotension [I95.89] 01/09/2020 CSF leak [G96.0] 01/09/2020 Encounter Status:Closed by SILVANO SWEENEY on 01/17/20 Jian [facility] Boby 01-13-2020 CNPN Telephone (PODCCP) ORTIZ JACOBS ([id number]) 1970 F Date Time Provider Department 01/13/20 AMANDEEP LOREDO PODCCP During your visit today, we recorded the following information about you: Allergies As of Date: 01/13/2020 Noted Allergy Reaction DARVOCET A500 (PROPOXYPHENE N-TRACY*04/30/2011 12 - Shortness of Breath PENICILLINS 04/30/2011 7 - Swelling DARVOCET A500 (PROPOXYPHENE N-TRACY*04/30/2011 16 - Unknown PENICILLINS 04/30/2011 16 - Unknown Date Reviewed: 01/08/2020 Reviewed by: Stephanie (Rn) CLIVE Higgins - Fully Assessed Reason for Visit: Follow Up [171] Cmt: Ravindrashira interaction - F/U - attempt made. No answer Prescriptions as of 01/13/2020 Sig: DEXAMETHASONE 4 MG TABLET Take 1 tablet by mouth three * TRAMADOL 50 MG TABLET Take 1 tablet by mouth every * LIDOCAINE 5 % TOPICAL PATCH Apply 1 Patch as directed christopher* GABAPENTIN 300 MG CAPSULE Take 300 mg by mouth three ti* FLUTICASONE 250 MCG-SALMETERO* Inhale 1 Puff as instructed t* MULTIVITAMIN 50 PLUS TABLET Take 1 tablet by mouth once d* LEVETIRACETAM 250 MG TABLET Take 1,500 mg by mouth twice * MELATONIN 10 MG TABLET Take 10 mg by mouth daily at * ALBUTEROL INHALATION Inhale as instructed twice da* FLONASE ALLERGY RELIEF NASAL Use 1 [place] in the nose twice* * OMEPRAZOLE 20 MG CAPSULE,JULISSA* Take 40 mg by mouth once easton* Problem List As Of Date 01/13/2020 Noted Resolved 1.1 Migraine without aura, not intractable [346*08/12/2011 1.2 Migraine with aura [G43.109] 08/12/2011 4.6 Primary thunderclap headache [339.43] [G*08/12/2011 6.3 Headache attributed to unruptured vascular *08/12/2011 1.2.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 Cerebral edema (HCC) [G93.6] 01/05/2020 01/08/2020 More... Urinary retention [R33.9] 01/05/2020 More... Epilepsy (HCC) [G40.909] 01/05/2020 More... Hyperglycemia [R73.9] 01/05/2020 More... Compression of brainstem (HCC) [G93.5] 01/05/2020 01/08/2020 More... Brain compression (HCC) [G93.5] 01/05/2020 01/08/2020 Stroke of unusual cause (HCC) [I63.9] 01/05/2020 Constipation [K59.00] 01/05/2020 More... Intracranial hypotension [I95.89] 01/06/2020 01/08/2020 More... Muscle spasm of right lower extremity [M62.838] 2020 Obesity, Class I, BMI 30-34.9 [E66.9] 01/09/2020 Intracranial hypotension [I95.89] 01/09/2020 CSF leak [G96.0] 01/09/2020 Encounter Status:Closed by FANTA HARTMANN on 01/13/20 Normal [facility] CASE MANAGEMon 01-09-2020 CASE MANAGEM HNO ID: [id number] Author: Diana CerratoRn) CLIVE Hernandez Service: Care Management Author Type: Registered Nurse Type: Care Mgt Progress Note Filed: 01/09/2020 3:38 PM Note Text: CARE MANAGEMENT DISCHARGE NOTE SERVICE DATE: 01/09/2020 SERVICE TIME: 3:36 PM LOS: 6 days Admission Date: 01/03/2020 DISCHARGE ARRANGEMENT (list agency and phone number) Discharge Arrangement: Pending Provider Name: Dr. Loredo CAREGIVER ASSESSMENT: Dc home HANDOFF COMMUNICATION: RN to give dc instructions. Summary of care TRANSPORTATION ARRANGEMENTS: tbd ADDITIONAL CONTACT RESOURCES: DC home with script for WW. Patient request to take script to local DME company. Declining this CM to order for her. SIGNATURE: Jen Hernandez RN PATIENT NAME: Ortiz Jacobs DATE: January 09, 2020 TIME: 3:36 PM IMM Follow Up Copy Given: Yes Copy given to:: Patient Method: By Phone [facility] CASE MANAGEM HNO ID: [id number] Author: Diana (Rn) CLIVE Hernandez Service: Care Management Author Type: Registered Nurse Type: Care Mgt Progress Note Filed: 01/09/2020 2:41 PM Note Text: CARE MANAGEMENT PROGRESS NOTE SERVICE DATE: 01/09/2020 SERVICE TIME: 1:22 PM LOS: 6 days Chart reviewed. DC order noted. Still awaiting PT/OT evals. Paged [facility] [place] to discuss. Await reply. PT/OT text paged and notified. 1331: Call from Dr. Mueller. He states patient is functional and unlikely to need skilled services upon dc. He states we can let PT/OT assess prior to dc. 1441: Script for WW on chart. Dr. Mueller notified this needs filled out. Patient requesting scripts be sent to [facility] in [place], not [facility]. Dr. Mueller again notified of this. SIGNATURE: Jen Hernandez RN PATIENT NAME: Ortiz Jacobs DATE: January 09, 2020 TIME: 1:22 PM PAGER/CONTACT #: [phone] [facility] Glucose Meteron 01-09-2020 Glucose [Mass/Vol] 127 mg/dL High 70-99 [facility] Comment on above: Result Comment: RN N OTIFIED Performed By: #### G LMET #### [place] [address] NURSING PROGon 01-09-2020 NURSING PROG HNO ID: [id number] Author: Lady (Rn) CLIVE Peralta Service: ? Author Type: Registered Nurse Type: Nursing Progress Note Filed: 01/09/2020 4:11 PM Note Text: Nursing Progress Note Patient Name: Ortiz Jacobs Patient Location: [place] [address] [address] 08-24 Discharge instructions give to the pt, fallow up appointment explained and medication chart picker information given, wheeled walker scrip given to pt at this time. Pt awaiting wheel chair This note was completed by: Lady Peralta RN [facility] PROGRESSon 01-09-2020 PROGRESS HNO ID: [id number] Author: Theron Worthington Service: Pain Management Author Type: Physician Type: Progress Notes Filed: 01/09/2020 2:29 PM Note Text: Name: ORTIZ JACOBS Age: [age] year old PAIN MANAGEMENT: Back Pain Pain Description: Patient complains of headache and hurting on her right side. Resting quietly, arousable appears comfortable 24H Pain Regimen: Decadron 4 mg IV ?4 Valium 5mg IV x 3 Fentanyl 50mcg IV x 4 Flexeril 5mg x 1- discontinued Gabapentin 300 mg ?2- discontinued Lidocaine patch Interval HPI: Patient is feeling better. Left facial numbness; headache improved; some back pain 01/02 CT Myelogram L3?for small posterior central disc extrusion with caudal migration causing moderate narrowing of thecal sac left greater than right neural foraminal narrowing. Postop changes L4-S1. Thoracic spine T10-T11 small right paracentral disc protrusion Cervical spine mild multilevel cervical degenerative disc disease. Postsurgical changes at C6-C7 Subjective HPI: 49-year-old female with history of seizures, prior L4-S1 fusion in 2015 at [facility], prior C6-C7 fusion 2006, basilar artery aneurysm status post coiling 2011, stroke 2010 and GERD, gastroparesis status post gastric pacemaker presented 01/02 from [place] transfer with intractable back pain, urinary retention and severe bilateral lower extremity pain and spasm. Patient is followed by Dr. Robledo in [place] for pain management; last SI joint injection 12/28. CT myelogram pending; patient unable to have MRI due to gastric pacemaker. Of note, patient was hospitalized twice October, at [facility] for L3-L4 and T10-T11 disc herniation with radiculopathy. Outpatient PT, Decadron therapy and spine follow-up recommended. She re-presented with left arm numbness and facial droop; imaging negative for acute stroke. Symptoms felt to be secondary to migraine. In review of records during that hospitalization, there is concern for suspicious drug-seeking behavior as documented in the chart (including requesting opiate prescription at discharge despite recent filling prescription Percocet No. 100, and requesting IV opiates) Patient lives alone. She denies tobacco, alcohol or illicit meds. Home pain regimen includes gabapentin 300 mg 3 times daily. She no longer takes daily opiates. She previously had been on long-acting opiates last year. 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 11/11/2019 Gabapentin 300 MG Capsule 90.00 30 Eu Pet [id number] [id number] [place] 09/26/2019 2 09/25/2019 Oxycodone-Acetaminophen 5-325 12.00 3 Al Abby [id number] [facility] ([id number] 0 30.00 [place] 09/19/2019 2 09/19/2019 Oxycodone-Acetaminophen 5-325 15.00 3 Do Kol [id number] [facility] ([id number] 0 37.50 [place] 08/31/2019 2 08/31/2019 Gabapentin 300 MG Capsule 90.00 30 Ay Bas [id number] [facility] ([id number] [place] 07/15/2019 2 07/15/2019 Gabapentin 300 MG Capsule 90.00 30 Ay Bas [id number] [facility] ([id number] [place] 06/03/2019 2 05/30/2019 Diazepam 5 MG Tablet 10.00 4 To Le [id number] [facility] ([id number]) 0 1.25 [place] 06/03/2019 2 05/30/2019 Oxycodone-Acetaminophen 5-325 12.00 3 To Le [id number] [facility] ([id number]) 0 30.00 [place] 06/03/2019 2 06/03/2019 Gabapentin 300 MG Capsule 60.00 20 Je B [id number] [facility] ([id number]) 0 Medicare Current Facility-Administered Medications Medication Dose Route Frequency Provider Last Rate Last Dose - atorvastatin 20 mg tab(s) (LIPITOR) 20 mg ORAL/FEEDING TUBE AT BEDTIME Kelly (Res) Ojiaku, DO 20 mg at 01/08/202032 - aspirin 81 mg chewable tab(s) 81 mg ORAL/FEEDING TUBE DAILY Kelly (Res) Ojiaku, DO - insulin lispro pen (rapid acting) (HumaLOG KWIKPEN) SUBCUTANEOUS w MEALS AND HS Kelly (Res) Oannabellaaku, DO - melatonin 6 mg tab(s) 6 mg ORAL HS PRN Leandra (Rn Integrated) APRN. DeondreHEALTH AND PHYSICAL EDUCATION PROFESSOR 6 mg at 01/08/202121 - enoxaparin 40 mg injection (LOVENOX) 40 mg SUBCUTANEOUS q 24 HR Kelly (Res) Ojiaku, DO 40 mg at 01/08/20 0800 - prochlorperazine 10 mg injection (COMPAZINE) 10 mg INTRAVENOUS q 6 H PRN Kelly (Res) Ojiaku, DO 10 mg at 01/08/20 2033 - dexamethasone sodium phosphate 4 mg injection (DECADRON) 4 mg INTRAVENOUS q 6 H Kelly (Res) Ojiaku, DO 4 mg at 01/09/20 0540 - levETIRAcetam iv piggyback 1,500 mg in NaCl (iso-osmotic) 100 mL (KEPPRA) 1,500 mg INTRAVENOUS BID Kelly (Res) Ojiaku, DO 400 mL/hr at 01/08/202033 1,500 mg at 01/08/202033 - pantoprazole 40 mg injection (PROTONIX) 40 mg INTRAVENOUS DAILY (6 AM) Kelly (Res) Ojiaku, DO 40 mg at 01/09/20 0540 - lactulose 20 g CUP (DUPHALAC, CONSTULOSE) 20 g ORAL/FEEDING TUBE TID Kelly (Res) Ojiaku, DO 20 g at 01/08/20 1256 - diazePAM 5 mg injection (VALIUM) 5 mg INTRAVENOUS q 6 H PRN Kelly (Res) Ojiaku, DO 5 mg at 01/08/20 0800 - perflutren lipid microspheres 1.1 mg/mL 1.3 mL injection (DEFINITY) 1.3 mL INTRAVENOUS DIRECTED PRN Kelly (Res) Ojiaku, DO - ipratropium-albuterol 3 mL nebulizer solution (DUONEB) 3 mL INHALATION QID Kelly (Res) Ojiaku, DO 3 mL at 01/08/20 1937 - ondansetron 4 mg tab(s) (ZOFRAN) 4 mg ORAL/FEEDING TUBE q 6 H PRN Kelly (Res) Ojiaku, DO Or - ondansetron (PF) 4 mg injection (ZOFRAN) 4 mg INTRAVENOUS q 6 H PRN Kelly (Res) Ojiaku, DO 4 mg at 01/08/20 1836 - fentaNYL 50 mcg/mL 25-50 mcg injection (SUBLIMAZE) 25-50 mcg INTRAVENOUS q 1 H PRN Kelly (Res) Ojiaku, DO 50 mcg at 01/09/20 0340 - sodium chloride 0.65 % 2 [place] (AYR, OCEAN) 2 [place] EACH NOSTRIL PRN Kelly (Res) Ojiaku, DO - NaCl 0.9% 3-5 mL 3-5 mL INTRAVENOUS q 12 H Kelly (Res) Ojiaku, DO 5 mL at 01/08/20 2100 - dextrose 40 % 15 g 15 g ORAL PRN Kelly (Res) Ojiaku, DO Or - glucagon 1 mg injection (GLUCAGEN) 1 mg INTRAMUSCULAR PRN Kelly (Res) Ojiaku, DO Or - dextrose 50% in water 25 mL syringe 12.5 g INTRAVENOUS PRN Kelly (Res) Ojiaku, DO - albuterol 2.5 mg /3 mL (0.083 %) 2.5 mg (PROVENTIL) 2.5 mg INHALATION q 6 H PRN Kelly (Res) Ojiaku, DO 2.5 mg at 01/05/20 1355 - lidocaine 4 % 1 Patch (SALONPAS) 1 Patch TRANSDERMAL DAILY Kelly (Res) Ojiaku, DO 1 Patch at 01/08/20 0802 And - lidocaine patch - REMOVE OTHER AT BEDTIME Kelly (Res) Ojiaku, DO And - lidocaine - VERIFY PATCH OTHER q 8 H Kelly (Res) Ojiaku, DO gabapentin (NEURONTIN) 300 mg capsule, Take 300 mg by mouth three times daily., Disp: , Rfl: fluticasone-salmeterol (ADVAIR DISKUS) 250-50 mcg/dose, Inhale 1 Puff as instructed twice daily., Disp: , Rfl: Multivitamins-Minerals- Lutein (MULTIVITAMIN 50 PLUS) tab, Take 1 tablet by mouth once daily., Disp: , Rfl: levETIRAcetam (KEPPRA) 250 mg tablet, Take 1,500 mg by mouth twice daily. , Disp: , Rfl: , 01/02/2020 at Unknown time melatonin 10 mg tab, Take 10 mg by mouth daily at bedtime., Disp: , Rfl: , 01/02/2020 at Unknown time ALBUTEROL INHALATION, Inhale as instructed twice daily., Disp: , Rfl: , 01/02/2020 at Unknown time fluticasone propionate (FLONASE ALLERGY RELIEF NASAL), Use 1 [place] in the nose twice daily. , Disp: , Rfl: , 01/02/2020 at Unknown time omeprazole (PRILOSEC) 20 mg ORAL capsule, Take 40 mg by mouth once daily. , Disp: , Rfl: 0, 01/02/2020 at Unknown time Social History Tobacco Use - Smoking status: Current Every Day Smoker Packs/day: 0.50 Years: 10.00 Pack years: 5.00 Types: Cigarettes Substance Use Topics - Alcohol use: Yes Comment: Occassionally - Drug use: No FAMILY HISTORY Problem Relation Age of Onset - Arthritis Father - Coronary Artery Disease Father - Hypertension Father - Lipids Father - Arthritis Mother - Diabetes Mother - Hypertension Mother - Psychiatry Brother bipolar - Cancer Sister - Headache Sister - Psychiatry Sister bipolar No past surgical history on file. ROS: All of the following reviewed and negative except as noted below: GENERAL: no fever, chills, sweats, weight loss,+ fatigue, generalized weakness HEENT: no headache, vision changes, eye discomfort, hearing change, ear discomfort, sinus pain, nasal discharge or congestion, oral lesions, soreness, dental problem NECK: no adenopathy, discomfort, change in ROM CHEST: no shortness of breath, dyspnea on exertion, wheezing, cough, sputum production or chest pain HEART: no chest pain, palpitations, syncope ABDOMEN: no nausea, vomiting, constipation, diarrhea, abdominal pain : no dysuria, urgency, frequency, history of stones, incontinence NEURO: no confusion or alteration in consciousness, slurred speech, seizure, see HPI EXTREMITIES: no new pain, edema, change in ROM HEME: no new adenopathy, bruises, petechiae PSYCH: no depression, anxiety, agitation PAIN PSYCHIATRIC EXAM: GENERAL: alert, oriented to person, place, time JUDGMENT AND INSIGHT: intact APPEARANCE: neatly groomed DEMEANOR: coooperative, not hostile, mistrustful, preoccupied, or demanding ACTIVITY: normal, not hyperactive or hypoactive, no tremors, tics EYE CONTACT: normal SPEECH: normal, rate, volume, articulation, coherence, spontaneity MOOD: anxious IDEATION: deferred MEMORY: intact PHYSICAL EXAMINATION: GENERAL: well nourished and developed; anxious; alert and oriented x 3; intact judgement and insight; trendelenberg HEENT: no evidence of trauma; cranial nerves intact; eyes clear EOMI; no hearing deficits apparent; nasal passages unremarkable; throat and mucous membranes clear NECK: supple without lymphadenopathy; no JVD; no thyromegaly CHEST: clear bilaterally to auscultation; normal chest movement; no rales or rhonchi HEART: regular rate and rhythm, normal S1 and S2, no murmurs, clicks, rubs, or gallops ABDOMEN: soft; nondistended; bowel sounds present; no hepatomegaly; no splenomegaly; no tenderness EXTREMITIES: no evidence of clubbing; no cyanosis; no deformity; no joint effusion; no edema NEURO: no confusion; no tremor; sensorium normal; mild weakness LUE/LLE SKIN: no rash; no skin breakdown; no decubitus lesions HEME: no bruising; no adenopathy PSYCH: no evidence of depression; + anxiety; no agitation; no apparent hallucinations BP 110/74 Pulse 91 Temp 36.8 ?C (98.2 ?F) (Oral) Resp 16 Ht 175.3 cm (5' 9) Wt 102 kg (224 lb 13.9 oz) SpO2 96% BMI 33.21 kg/m? BMI 33.21 kg/(m2) Date 01/02/20 07 - 01/03/20 0659(Not Admitted) 01/03/20 07 - 01/04/20 0659 Shift 7424-5077 1637-6268 8851-7024 24 Hour Total 5062-7520 0769-2996 9412-5915 24 Hour Total INTAKE Shift Total OUTPUT Urine 1300 1300 Output ( Indwelling Urinary Catheter 01/03/20 0325 Admission to Hospital [facility] 16 Fr) 1300 1300 Shift Total 1300 1300 Weight (kg) 100.2 100.2 100.2 100.2 100.2 100.2 ABNORMAL/NEW FINDINGS: NONE RADIOLOGY/DIAGNOSTICS: LABORATORY: CBC: No results for input(s): WBC, RBC, HB, HCT, PLT, MCV, MCH, MPV, RDW in the last 24 hours. CMP: Recent Labs 01/08/20 0835 NA 138 K 4.3 CHLOR 103 CO2 23 BUN 20 CREAT 0.63 GLUC 103* CA 8.1* ANION 12 Heme: No results for input(s): RETICP, ABSRETIC, LD, RADHA, FE, TIBC, TRANSFERSAT in the last 24 hours. 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 No surgical intervention needed per NS On 01/04 pt developed dysphagia, left facial droop and left side weakness; CTH + cerebral edema- possible result of CSF leak after myelogram per chart. Pt transferred to NSICU; given Mannitol and caffeine. 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 Robledo in [place] after discharge Theron Worthington M.D. [facility] PT EDon 01-09-2020 PT ED HNO ID: [id number] Author: Whitney Winn (Pharmacist) Service: Pharmacy Author Type: Pharmacist Type: Patient Education Filed: 01/09/2020 3:46 PM Note Text: DISCHARGE MEDICATION REVIEW AND COUNSELING BY PHARMACY Patient Name: Ortiz Jacobs Account #: Data Unavailable Admission Date: 01/03/2020 Date of Contact: January 09, 2020 Time of Contact: 3:46 PM LEARNERS Persons Present: Patient Primary Learner: Patient Medication list was reviewed by a Pharmacist for drug interactions or drug related problems:Yes The patient was counseled on the medication(s) listed below and was given the opportunity to ask questions regarding indication, dosage, side effects and drug interactions READINESS TO LEARN COGNITIVE ABILITY:Alert and oriented MOTIVATION TO LEARN:Eager Interested FAMILY SUPPORT:Unable to assess - Family not present INSTRUCTION PROVIDED TO:Patient PATIENT LEARNS BEST BY:Individual Instruction Verbal Instruction FACTORS AFFECTING LEARNING:None PHYSICAL LIMITATIONS AFFECTING LEARNING:None LEARNING RESPONSE PATIENT / FAMILY RESPONSE:Verbalizes understanding of: Accurate knowledge of prescribed medication prior to discharge. The correct action to take if medication dose is missed. The side effects associated with the medication that warrant a call to the physician. WHITNEY WINN, PHARMACIST January 09, 2020 3:46 PM Medication List START taking these medications dexamethasone 4 mg tablet Commonly known as: DECADRON Take 1 tablet by mouth three times daily for 4 days. lidocaine 5 % Commonly known as: LIDODERM Apply 1 Patch as directed every 24 hours for 7 days. to affected area. Remove patch after 12 hours. traMADol 50 mg tablet Commonly known as: ULTRAM Take 1 tablet by mouth every 8 hours as needed for up to 7 days. CONTINUE taking these medications ADVAIR DISKUS 250-50 mcg/dose Generic drug: fluticasone-salmeterol ALBUTEROL INHALATION FLONASE ALLERGY RELIEF NASAL gabapentin 300 mg capsule Commonly known as: NEURONTIN KEPPRA 250 mg tablet Generic drug: levETIRAcetam melatonin 10 mg Tab MULTIVITAMIN 50 PLUS Tab Generic drug: Multivitamins-Minerals- Lutein omeprazole 20 mg capsule Commonly known as: PriLOSEC Where to Get Your Medications These medications were sent to [place] [id number] [place] [address] ? dexamethasone 4 mg tablet ? lidocaine 5 % ? traMADol 50 mg tablet Normal [facility] THERAPY NTon 01-09-2020 THERAPY NT HNO ID: [id number] Author: Cely Alcantar/Ruddy Dee Service: Occupational Therapy Author Type: Occupational Therapist Type: Therapy (PT/OT/Speech/Resp) Filed: 01/09/2020 4:02 PM Note Text: OCCUPATIONAL THERAPY MISSED VISIT SERVICE DATE: 01/09/2020 SERVICE TIME: 1559 to 1559 ROOM: [place] [address] Attempted Evaluation. Patient not seen due to Declined. Chart reviewed. PT recommends home discharge without additional services. Education provided in role of OT to facilitate safety and independence in ADL/IADL and associated mobility. Patient reports independence with ADL and mobility within hospital room, states her is taking two weeks off of work to stay with her and daughter will be assisting with IADL. Patient declines OT services at this time. OT will sign off. SIGNATURE: ENEDELIA Sebastian/Adam PATIENT NAME: Ortiz Jacobs DATE: January 09, 2020 TIME: 4:00 PM Normal [facility] THERAPY NT HNO ID: [id number] Author: Alona Troy Service: Physical Therapy Author Type: Physical Therapist Type: Therapy (PT/OT/Speech/Resp) Filed: 01/09/2020 1:51 PM Note Text: Physical Therapy Evaluation SERVICE DATE: 01/09/2020 SERVICE TIME: 1315 to 9378 ROOM: [place] [address] Recommended Discharge Disposition: Home Recommended Discharge Equipment: Wheeled Walker PT Recommendations to Nursing: Ambulate with device;To bathroom;In halls;Transfer to/from chair;OOB for Meals;With assist of 1 person Device: Wheeled Walker(able to walk short distances without device) PT 6 Clicks Score: 22 Precautions/Activity Restrictions: Fall Risk Isolation Type: None ASSESSMENT : This patient was admitted for severe back pain and intercranial hypotension, has the past medical history of back pain , depression, intercranial aneurysm, seizures impacting current functional level, as well as the social factors complicating the discharge of in process of moving, but will be going home to [facility]. This patient is below baseline functioning of total independent mobility and will benefit from continued skilled therapy in the hospital for treatment of the following body systems/impairments: musculoskeletal, integumentary, cardiopulmonary, neuromuscular (gait, transfers, bed mobility, balance, endurance, safety and strengthening). Patient Disposition at Start of Session: Supine in Bed Patient Disposition at End of Session: Supine in Bed Tolerated Full Session Physical Therapy Problem List: Education Deficit;Functional Mobility Impairment Patient /Caregiver Goals: Go Home Goals for Plan of Care: Able to perform HEP with: Independent Transfer sit to/from stand with: Independent Ambulate with: Independent Distance: 50 Device: Wheeled Walker Rehab Potential: Excellent PLAN: Treatment Frequency (times per week): 5(2-4) Current admission Treatment Interventions: Education;Strengthening ;Functional Mobility Training;Balance Training Plan of Care developed with: Patient TREATMENT INTERVENTIONS: Therapy Diagnosis: Reduced mobility-other;General symptoms and signs-other Interventions Provided: Evaluation;Therapeutic Exercise (16109);Gait Training (95339) $ Evaluation-Moderate (65010) Billed Units: 1 unit Therapeutic Exercise (07359) Treatment Minutes: 3 0 units Skilled Intervention(s): Instruction in therapeutic exercise for stretching the left calf when it spasms, educated on use of a belt to pull foot into DF and to use a tennis ball to massage the calf. Both to assist with relieving the pain of cramping. Gait Training (04529) Treatment Minutes: 6 1 unit Skilled Intervention(s): Instruction in use of equipment, cues for sequence and pattern with the walker. She was able to do a short distance with out the walker but was not able to walk greater than 15 feet as her calk began to cramp and she needed more support with the walker she was able to walk in the hallway safely and make it to a chair when she began to get a calf cramp. Total Timed Code Treatment Minutes: 9 Total Treatment Time (minutes): 23 SUBJECTIVE: Current Hospital Course: Chart reviewed; 01/02 CT Myelogram L3?for small posterior central disc extrusion with caudal migration causing moderate narrowing of thecal sac left greater than right neural foraminal narrowing. Postop changes L4-S1. Thoracic spine T10-T11 small right paracentral disc protrusion.Cervical spine mild multilevel cervical degenerative disc disease. Postsurgical changes at C6-C7. When to NSICU due to intercranial hypotension with left facial droop and left upper extremity/LE weakness Reason for Physical Therapy Consult : mobility Relevant Past Medical History: chronic back pain Patient Report: Patient says she is beginning to feel better but still not back to her normal self. Home Environment Patient Lives With: Family Assistance Available: 24 Hour Entry To Home: Stairs Number Of Stairs Into Home: 1 Number Of Stairs To Bed/Bath: 0 Prior Functional Level: Within Functional Limits Prior Functional Level Comments: Could care for self, does not work or drive, does not use assistive device OBJECTIVE: Range of Motion: WFL Strength: WFL left hamstring slightly weaker but patient related this to pain in the calf with resistence as physical therapy hand with on calf muscle CURRENT FUNCTIONAL STATUS: Current Functional Mobility Assist Level Additional Information Rolling Independent Supine to Sit Independent Sit to Supine Independent Scooting Sit to Stand Independent Stand to Sit Independent Bed to Chair Toilet/Commode Gait Minimal Assistance Gait Device: Wheeled Walker Gait Distance (feet): 75 x 2 Stairs Curb Step Car Transfer General Deviations/Observations : Alejandra decreased(left calf began to cramp) Balance: Dynamic Standing Dynamic Standing Balance: Fair Patient accepts minimal challenge, able to maintain balance while turning head/trunk Activity Tolerance: Standing Activity Standing Activity: gait Standing Activity Tolerance (in minutes): 3 JH-HLM: 7: Walk 25 feet or more Please see discipline specific clinical documentation flowsheet for complete details for this therapy evaluation/treatment. SIGNATURE: Alona Troy PT PATIENT NAME: Ortiz Jacobs DATE: January 09, 2020 TIME: 1:44 PM Normal [facility] Basic Metabolic Panelon 05 Anion gap [Moles/Vol] 12 mmol/L Normal 9-18 [facility] Comment on above: Performed By: #### M AG #### [facility] [address] [place], [place] [address] Calcium [Mass/Vol] 8.1 mg/dL Low 8.5-10.2 [facility] Comment on above: Performed By: #### M AG #### [facility] [address] [place], [place] [address] Chloride [Moles/Vol] 103 mmol/L Normal 97-105 [facility] Comment on above: Performed By: #### M AG #### [facility] [address] [place], [place] [address] CO2 Blood 23 mmol/L Normal 22-30 [facility] Comment on above: Performed By: #### M AG #### [facility] [address] [place], [place] [address] Creatinine [Mass/Vol] 0.63 mg/dL Normal 0.58-0.96 [facility] Comment on above: Performed By: #### M AG #### [facility] [address] [place], [place] [address] Glucose [Mass/Vol] 103 mg/dL High 74-99 [facility] Comment on above: Result Comment: The [place] [employer] (ADA) provides guidance for cutoff values for fasting glucose and random glucose. The ADA defines fasting as no caloric intake for at least 8 hours.Fasting plasma glucose results between 100 to 125 mg/dL indicate increased risk for diabetes (prediabetes). Fasting plasma glucose results greater than or equal to 126 mg/dL meet the criteria for diagnosis of diabetes. In the absence of unequivocal hyperglycemia, results should be confirmed by repeat testing. In a patient with classic symptoms of hyperglycemia or hyperglycemic crisis, random plasma glucose results greater than or equal to 200 mg/dL meet the criteria for diagnosis of diabetes. Reference: Standards of Medical Care in Diabetes 2016; [place] [employer]. Diabetes Care. 2016;39(Suppl 1). Performed By: #### M AG #### [facility] [address] [place], [place] [address] Potassium [Moles/Vol] 4.3 mmol/L Normal 3.7-5.1 [facility] Comment on above: Performed By: #### M AG #### [facility] [address] [place], [place] [address] Sodium [Moles/Vol] 138 mmol/L Normal 136-144 [facility] Comment on above: Performed By: #### M AG #### [facility] [address] [place], [place] [address] Urea nitrogen [Mass/Vol] 20 mg/dL Normal 7-21 [facility] Comment on above: Performed By: #### M AG #### [facility] [address] [place], [place] [address] CT BRAIN WO IVCONon 01-08-[address] BRAIN WO IVCON * * *Final Report* * * DATE OF EXAM: 2020 10:21PM [facility] 0504 - CT BRAIN WO IVCON / PROCEDURE REASON: Ataxia, stroke suspected * * * * Physician Interpretation * * * * EXAMINATION: CT BRAIN WO IVCON CLINICAL HISTORY: Ataxia, stroke suspected. Strokelike symptoms, weakness, slurred speech, history of coil and CSF leak. TECHNIQUE: Serial axial images without IV contrast were obtained from the vertex to the foramen magnum. MQ: [id number] CT Dose-Length Product (DLP): 847 mGy*cm CT Dose Reduction Employed: Iterative recon COMPARISON: 01/06/2020 and 01/05/2020. RESULT: Post-operative change: Aneurysm coils are noted the tip of the basilar artery. Acute change: No evidence of acute large vascular territory ischemic infarct or other acute parenchymal process. Hemorrhage: No acute intra or extra-axial hemorrhage. Mass Lesion / Mass Effect: No mass effect or shift of midline structures. Cortical sulci are patent. No abnormal extra-axial fluid collections. Chronic change: None apparent. Parenchyma: Brain volume is normal. Sanders-white matter differentiation is preserved throughout. Ventricles: The ventricles are unchanged in caliber and configuration with no findings to suggest obstruction to CSF flow. Paranasal sinuses and skull base: Partially visualized small retention cyst in the posterior left maxillary sinus. Visualized. The sinuses are otherwise clear. Mastoid air cells and middle ears are clear. No calvarial fracture. IMPRESSION: No evidence of acute intracranial process. No evidence of recurrence of cerebral edema compared to 01/05/2020. Radio Station Engineer: BINTA Transcribe Date/Time: 2020 10:22P Dictated by : MIKEL CARDENAS MD This examination was interpreted and the report reviewed and electronically signed by: MIKEL CARDENAS MD on 2020 10:26PM EST Normal [facility] Hemogramon 01-08-2020 Erythrocyte distribution width (RBC) [Ratio] 12.6 % Normal 11.7-14.4 [facility] Comment on above: Performed By: #### M AG #### [place] [address] Hematocrit (Bld) [Volume fraction] 43.5 % Normal 34.1-44.9 [facility] Comment on above: Performed By: #### M AG #### [place] [address] Hemoglobin (Bld) [Mass/Vol] 14.2 g/dL Normal 11.2-15.7 [facility] Comment on above: Performed By: #### M AG #### [place] [address] MCH (RBC) [Entitic mass] 32.1 pg Normal 25.6-32.2 [facility] Comment on above: Performed By: #### M AG #### [facility] [address] [place] [address] MCHC (RBC) [Mass/Vol] 32.6 % Normal 31.6-34.8 [facility] Comment on above: Performed By: #### M AG #### [place] [address] MCV (RBC) [Entitic vol] 98.4 fL High 79.4-94.8 [facility] Comment on above: Performed By: #### M AG #### [facility] [address] [place], [place] [address] Platelet mean volume (Bld) [Entitic vol] 10.7 fL Normal 9.4-12.3 [facility] Comment on above: Performed By: #### M AG #### [facility] [address] [place], [place] [address] Platelets (Bld) [#/Vol] 151 thou/cmm Low 182-369 [facility] Comment on above: Performed By: #### M AG #### [facility] [address] [place], [place] [address] RBC (Bld) [#/Vol] 4.42 mil/cmm Normal 3.93-5.22 [facility] Comment on above: Performed By: #### M AG #### [place] [address] RDW SD 45.3 fl Normal 36.4-46.3 [facility] Comment on above: Performed By: #### M AG #### [address] [address] WBC (Bld) [#/Vol] 10.78 thou/cmm High 3.98-10.04 [facility] Comment on above: Performed By: #### M AG #### [place] [address] MDRD GFRon 01-08-2020 GFR/1.73 sq M predicted among non-blacks MDRD (S/P/Bld) [Vol rate/Area] mL/min/{1.73_m2} Normal >60mL/min/1. 73m2 [facility] Comment on above: Result Comment: If t he patient is , multiply the result by 1.210. Performed By: #### G FR #### [place] [address] NURSING PROGon 01-08-2020 NURSING PROG HNO ID: [id number] Author: Meagan CerratoRn) CLIVE Tang Service: Nursing Author Type: Registered Nurse Type: Nursing Progress Note Filed: 01/08/2020 4:07 PM Note Text: Report called to 8100. Patient aware of transfer Normal [facility] PLAN OF CAREon 01-08-2020 PLAN OF CARE HNO ID: [id number] Author: Michelle Talavera Service: Neurology General Author Type: Nurse Practitioner Type: Plan of Care Filed: 01/08/2020 6:10 PM Note Text: Patient has been doing well since blood patch. No evidence of ongoing herniation on CTH. She has seizure history but that has been stable and no events while admitted. She is on home AED. Please call with concerns. She needs PT/OT evaluation and pain management. She can see Neurology in office for seizures, migraine hx. Normal [facility] PROGRESSon 01-08-2020 PROGRESS HNO ID: [id number] Author: Melisa Bryant Service: Pain Management Author Type: Physician Type: Progress Notes Filed: 01/08/2020 2:27 PM Note Text: Name: ORTIZ JACOBS Age: [age] year old PAIN MANAGEMENT: Back Pain Pain Description: Patient complains of headache and hurting on her right side. Resting quietly, arousable appears comfortable 24H Pain Regimen: Decadron 4 mg IV ?4 Valium 5mg IV x 3 Fentanyl 50mcg IV x 3 Flexeril 5mg x 1- discontinued Gabapentin 300 mg ?2- discontinued Lidoderm patch Interval HPI: Patient is feeling better. Left facial numbness; headache improved; some back pain 01/02 CT Myelogram L3?for small posterior central disc extrusion with caudal migration causing moderate narrowing of thecal sac left greater than right neural foraminal narrowing. Postop changes L4-S1. Thoracic spine T10-T11 small right paracentral disc protrusion Cervical spine mild multilevel cervical degenerative disc disease. Postsurgical changes at C6-C7 Subjective HPI: 49-year-old female with history of seizures, prior L4-S1 fusion in 2016 at [facility], prior C6-C7 fusion 2006, basilar artery aneurysm status post coiling 2011, stroke 2010 and GERD, gastroparesis status post gastric pacemaker presented 01/02 from [place] transfer with intractable back pain, urinary retention and severe bilateral lower extremity pain and spasm. Patient is followed by Dr. Robledo in [place] for pain management; last SI joint injection 12/28. CT myelogram pending; patient unable to have MRI due to gastric pacemaker. Of note, patient was hospitalized twice October, at [facility] for L3-L4 and T10-T11 disc herniation with radiculopathy. Outpatient PT, Decadron therapy and spine follow-up recommended. She re-presented with left arm numbness and facial droop; imaging negative for acute stroke. Symptoms felt to be secondary to migraine. In review of records during that hospitalization, there is concern for suspicious drug-seeking behavior as documented in the chart (including requesting opiate prescription at discharge despite recent filling prescription Percocet No. 100, and requesting IV opiates) Patient lives alone. She denies tobacco, alcohol or illicit meds. Home pain regimen includes gabapentin 300 mg 3 times daily. She no longer takes daily opiates. She previously had been on long-acting opiates last year. 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 11/11/2019 Gabapentin 300 MG Capsule 90.00 30 Eu Pet [id number] [id number] [place] 09/26/2019 2 09/25/2019 Oxycodone-Acetaminophen 5-325 12.00 3 Al Abby [id number] [facility] ([id number] 0 30.00 [place] 09/19/2019 2 09/19/2019 Oxycodone-Acetaminophen 5-325 15.00 3 Do Kol [id number] [facility] ([id number] 0 37.50 [place] 08/31/2019 2 08/31/2019 Gabapentin 300 MG Capsule 90.00 30 Ay Bas [id number] [facility] ([id number] [place] 07/15/2019 2 07/15/2019 Gabapentin 300 MG Capsule 90.00 30 Ay Bas [id number] [facility] ([id number] [place] 06/03/2019 2 05/30/2019 Diazepam 5 MG Tablet 10.00 4 To Le [id number] [facility] ([id number]) 0 1.25 LME [place] 06/03/2019 2 05/30/2019 Oxycodone-Acetaminophen 5-325 12.00 3 To Le [id number] [facility] ([id number]) 0 30.00 [place] 06/03/2019 2 06/03/2019 Gabapentin 300 MG Capsule 60.00 20 Je B [id number] [facility] ([id number]) 0 Medicare Current Facility-Administered Medications Medication Dose Route Frequency Provider Last Rate Last Dose - atorvastatin 20 mg tab(s) (LIPITOR) 20 mg ORAL/FEEDING TUBE AT BEDTIME Kelly (Res) Ojiaku, DO - aspirin 81 mg chewable tab(s) 81 mg ORAL/FEEDING TUBE DAILY Kelly (Res) Ojiaku, DO - insulin lispro pen (rapid acting) (HumaLOG KWIKPEN) SUBCUTANEOUS w MEALS AND HS Beverly Vora - enoxaparin 40 mg injection (LOVENOX) 40 mg SUBCUTANEOUS q 24 HR Michelle Ilan 40 mg at 01/08/20 0800 - prochlorperazine 10 mg injection (COMPAZINE) 10 mg INTRAVENOUS q 6 H PRN Michelle Ilan 10 mg at 01/07/20 2227 - dexamethasone sodium phosphate 4 mg injection (DECADRON) 4 mg INTRAVENOUS q 6 H Beverly Vora 4 mg at 01/08/20 1250 - levETIRAcetam iv piggyback 1,500 mg in NaCl (iso-osmotic) 100 mL (KEPPRA) 1,500 mg INTRAVENOUS BID Beverly Vora 400 mL/hr at 01/08/20 0802 1,500 mg at 01/08/20 0802 - pantoprazole 40 mg injection (PROTONIX) 40 mg INTRAVENOUS DAILY (6 AM) Beverly Vora 40 mg at 01/08/20 0500 - lactulose 20 g CUP (DUPHALAC, CONSTULOSE) 20 g ORAL/FEEDING TUBE TID Beverly Vora 20 g at 01/08/20 1256 - diazePAM 5 mg injection (VALIUM) 5 mg INTRAVENOUS q 6 H PRN Erika Goins 5 mg at 01/08/20 0800 - perflutren lipid microspheres 1.1 mg/mL 1.3 mL injection (DEFINITY) 1.3 mL INTRAVENOUS DIRECTED PRN Erika Goins - ipratropium-albuterol 3 mL nebulizer solution (DUONEB) 3 mL INHALATION QID Erika Goins 3 mL at 01/08/20 1151 - potassium chloride ER 20-40 mEq tab(s) (K-DUR, KLOR-CON) 20-40 mEq ORAL/FEEDING TUBE PRN Erika Goins Or - potassium chloride iv piggyback 20 mEq/100 mL 20 mEq INTRAVENOUS PRN Erika R Julio C - magnesium sulfate in water 2 g in sterile water 50 ml 2 g INTRAVENOUS PRN Erika R Julio C - sodium phosphate 45 mmol in NaCl 0.9% 250 mL 45 mmol INTRAVENOUS PRN Erika R Julio C - calcium gluconate 4 g in NaCl 0.9% 250 mL 4 g INTRAVENOUS PRN Erika R Julio C - ondansetron 4 mg tab(s) (ZOFRAN) 4 mg ORAL/FEEDING TUBE q 6 H PRN Erika R Julio C Or - ondansetron (PF) 4 mg injection (ZOFRAN) 4 mg INTRAVENOUS q 6 H PRN Erika R Julio C 4 mg at 01/08/20 0329 - fentaNYL 50 mcg/mL 25-50 mcg injection (SUBLIMAZE) 25-50 mcg INTRAVENOUS q 1 H PRN Erika R Julio C 50 mcg at 01/08/20 1255 - sodium chloride 0.65 % 2 [place] (AYR, OCEAN) 2 [place] EACH NOSTRIL PRN Erika R Julio C - NaCl 0.9% 3-5 mL 3-5 mL INTRAVENOUS q 12 H Erika R Julio C 5 mL at 01/08/20 0803 - dextrose 40 % 15 g 15 g ORAL PRN Erika R Julio C Or - glucagon 1 mg injection (GLUCAGEN) 1 mg INTRAMUSCULAR PRN Erika R Julio C Or - dextrose 50% in water 25 mL syringe 12.5 g INTRAVENOUS PRN Erika R Julio C - albuterol 2.5 mg /3 mL (0.083 %) 2.5 mg (PROVENTIL) 2.5 mg INHALATION q 6 H PRN Erika R Julio C 2.5 mg at 01/05/20 1355 - lidocaine 4 % 1 Patch (SALONPAS) 1 Patch TRANSDERMAL DAILY Erika R Julio C 1 Patch at 01/08/20 0802 And - lidocaine patch - REMOVE OTHER AT BEDTIME Erika R Julio C And - lidocaine - VERIFY PATCH OTHER q 8 H Erika R Julio C gabapentin (NEURONTIN) 300 mg capsule, Take 300 mg by mouth three times daily., Disp: , Rfl: fluticasone-salmeterol (ADVAIR DISKUS) 250-50 mcg/dose, Inhale 1 Puff as instructed twice daily., Disp: , Rfl: Multivitamins-Minerals- Lutein (MULTIVITAMIN 50 PLUS) tab, Take 1 tablet by mouth once daily., Disp: , Rfl: levETIRAcetam (KEPPRA) 250 mg tablet, Take 1,500 mg by mouth twice daily. , Disp: , Rfl: , 01/02/2020 at Unknown time melatonin 10 mg tab, Take 10 mg by mouth daily at bedtime., Disp: , Rfl: , 01/02/2020 at Unknown time ALBUTEROL INHALATION, Inhale as instructed twice daily., Disp: , Rfl: , 01/02/2020 at Unknown time fluticasone propionate (FLONASE ALLERGY RELIEF NASAL), Use 1 [place] in the nose twice daily. , Disp: , Rfl: , 01/02/2020 at Unknown time omeprazole (PRILOSEC) 20 mg ORAL capsule, Take 40 mg by mouth once daily. , Disp: , Rfl: 0, 01/02/2020 at Unknown time Social History Tobacco Use - Smoking status: Current Every Day Smoker Packs/day: 0.50 Years: 10.00 Pack years: 5.00 Types: Cigarettes Substance Use Topics - Alcohol use: Yes Comment: Occassionally - Drug use: No FAMILY HISTORY Problem Relation Age of Onset - Arthritis Father - Coronary Artery Disease Father - Hypertension Father - Lipids Father - Arthritis Mother - Diabetes Mother - Hypertension Mother - Psychiatry Brother bipolar - Cancer Sister - Headache Sister - Psychiatry Sister bipolar No past surgical history on file. ROS: All of the following reviewed and negative except as noted below: GENERAL: no fever, chills, sweats, weight loss,+ fatigue, generalized weakness HEENT: no headache, vision changes, eye discomfort, hearing change, ear discomfort, sinus pain, nasal discharge or congestion, oral lesions, soreness, dental problem NECK: no adenopathy, discomfort, change in ROM CHEST: no shortness of breath, dyspnea on exertion, wheezing, cough, sputum production or chest pain HEART: no chest pain, palpitations, syncope ABDOMEN: no nausea, vomiting, constipation, diarrhea, abdominal pain : no dysuria, urgency, frequency, history of stones, incontinence NEURO: no confusion or alteration in consciousness, slurred speech, seizure, see HPI EXTREMITIES: no new pain, edema, change in ROM HEME: no new adenopathy, bruises, petechiae PSYCH: no depression, anxiety, agitation PAIN PSYCHIATRIC EXAM: GENERAL: alert, oriented to person, place, time JUDGMENT AND INSIGHT: intact APPEARANCE: neatly groomed DEMEANOR: coooperative, not hostile, mistrustful, preoccupied, or demanding ACTIVITY: normal, not hyperactive or hypoactive, no tremors, tics EYE CONTACT: normal SPEECH: normal, rate, volume, articulation, coherence, spontaneity MOOD: anxious IDEATION: deferred MEMORY: intact PHYSICAL EXAMINATION: GENERAL: well nourished and developed; anxious; alert and oriented x 3; intact judgement and insight; trendelenberg HEENT: no evidence of trauma; cranial nerves intact; eyes clear EOMI; no hearing deficits apparent; nasal passages unremarkable; throat and mucous membranes clear NECK: supple without lymphadenopathy; no JVD; no thyromegaly CHEST: clear bilaterally to auscultation; normal chest movement; no rales or rhonchi HEART: regular rate and rhythm, normal S1 and S2, no murmurs, clicks, rubs, or gallops ABDOMEN: soft; nondistended; bowel sounds present; no hepatomegaly; no splenomegaly; no tenderness EXTREMITIES: no evidence of clubbing; no cyanosis; no deformity; no joint effusion; no edema NEURO: no confusion; no tremor; sensorium normal; mild weakness LUE/LLE SKIN: no rash; no skin breakdown; no decubitus lesions HEME: no bruising; no adenopathy PSYCH: no evidence of depression; + anxiety; no agitation; no apparent hallucinations BP 114/63 Pulse 74 Temp 36.5 ?C (97.7 ?F) (Temporal) Resp 18 Ht 175.3 cm (5' 9) Wt 102 kg (224 lb 13.9 oz) SpO2 99% BMI 33.21 kg/m? BMI 33.21 kg/(m2) Date 01/02/20 07 - 01/03/20 0659(Not Admitted) 01/03/20 07 - 01/04/20 0659 Shift 6904-4556 4457-2681 2897-8803 24 Hour Total 4494-4177 6762-0603 6530-4693 24 Hour Total INTAKE Shift Total OUTPUT Urine 1300 1300 Output ( Indwelling Urinary Catheter 01/03/20 0325 Admission to Hospital Rodriguez 16 Fr) 1300 1300 Shift Total 1300 1300 Weight (kg) 100.2 100.2 100.2 100.2 100.2 100.2 ABNORMAL/NEW FINDINGS: NONE RADIOLOGY/DIAGNOSTICS: LABORATORY: CBC: Recent Labs 01/08/20 0340 WBC 10.78* RBC 4.42 HB 14.2 HCT 43.5 PLT 151* MCV 98.4* MCH 32.1 MPV 10.7 RDW 12.6 CMP: Recent Labs 01/08/20 0835 NA 138 K 4.3 CHLOR 103 CO2 23 BUN 20 CREAT 0.63 GLUC 103* CA 8.1* ANION 12 Heme: No results for input(s): RETICP, ABSRETIC, LD, RADHA, FE, TIBC, TRANSFERSAT in the last 24 hours. 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 No surgical intervention needed per NS On 01/04 pt developed dysphagia, left facial droop and left side weakness; CTH + cerebral edema- possible result of CSF leak after myelogram per chart. Pt transferred to NSICU; given Mannitol and caffeine. 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 Robledo in [place] after discharge Melisa Bryant MD [facility] PROGRESS HNO ID: [id number] Author: Beverly Vora Service: Neurology ICU Author Type: Physician Type: Progress Notes Filed: 01/08/2020 2:17 PM Note Text: SERVICE DATE: 01/08/2020 SERVICE TIME: 2:12 PM NEURO ICU PROGRESS NOTE DATE OF ADMISSION: 01/03/2020 Subjective Hospital Course: 01/04: arrived to NSICU from floor with intracranial hypotension. Left facial and LUE weakness. Transient episode of apnea that improved with Trandelenburg positioning and osmotherapy. CVP placed. 5/14 PM: spasms and pain to bilateral LE; nausea with emesis x1 > exam unchanged; pupils equal and reactive 01/05 episode of left facial droop, left arm and leg weakness and paraesthesia on left> Mannitol given; still unclear if dye reaction or CSF leak; cerebral edema 2/2 dye should improve 24-48 hours; CSF leak will be more prolonged recovery; repeated Caffeine infusion 01/06 doing better; tolerating HOB raised> will continue as day progresses; start diet and DC central line; start VTE ppx; symptoms better but still having LE spasms 01/07: No events overnight. Patient stable this am. Objective BP 114/63 Pulse 74 Temp 36.5 ?C (97.7 ?F) (Temporal) Resp 18 Ht 175.3 cm (5' 9) Wt 102 kg (224 lb 13.9 oz) SpO2 99% BMI 33.21 kg/m? Weight change: EXAM: Vital signs Reviewed. Nursing note reviewed. Constitutional: Well appearing. Non toxic appearing. No acute distress. Head: Atraumatic. Normocephalic. Eyes: Pupils are equal and round. Extraocular movement in tact. Conjunctiva normal. Oropharynx: Moist mucus membranes. Neck: Supple. Range of motion is intact. No JVD. Heart: Normal rate. Regular rhythm. Normal S1. Normal S2. Lungs: Breath sounds are clear to auscultation. Non labored breathing. Normal respiratory effort. No wheezes. Abdomen: Soft. Non tender. Non distended. No rebound tenderness. No guarding. No rigidity. Musculoskeletal: Range of motion of all four extremities are intact. No lower extremity edema or tenderness. Neurological: Alert and conversant. Oriented to person, place and time. 5/5 strength in the UE and LE bilaterally. Skin: Warm. Dry. No rashes on exposed areas. Diagnostic tests reviewed for today's visit: Most recent labs and imaging results. Lines, Drains, and Airways Line Peripheral 01/07/20 1235 Assessment Short Right Antecubital 18 Gauge 1 day ICU Checklist Last Documented/Reviewed time: 01/08/2020 2:06 PM ------ - ICU Delirium Status: CAM Negative - no action required Restraint Status: None ICU Mobility-Pt Has Been Out of Bed: No - Specify Line Status: Central multi-lumen catheter Central Line Status: Able to remove today Ventilator: None Rodriguez Status: Present, will discontinue today GI/Stress Ulcer Prophylaxis: PPI Nutrition is at Goal: Advancing to goal VTE Prophylaxis: Chemoprophylaxis: Heparin SQ Pressure Injury Status: None ICU plan of care visit at bedside in last 24 hours: Yes, Provider, RN, Patient/ designee ICU Disposition- Is Patient Clinically Ready to Transfer to [facility] or SDU?: No Discharge Planning: To be determined PERSONAL INVOLVEMENT IN CARE: Reviewing initiation, responses and adjustments to therapies, coordination of care, and updating family with Staff Physician, Dr. Vora. Assessment AND Plan 49 year old, female who was admitted for low back complaints, urinary retention with difficulty ambulating. S/P myelogram 01/02. Stroke team called 01/04 for left facial droop. CT brain attack performed noted cerebral edema with tonsillar herniation and transferred to NSICU. ? Active Hospital Problems as of 01/08/2020 Noted - Resolved Hospital Severe back pain 01/03/2020 - Present Current Assessment AND Plan Had epidural injection performed december 27 then started to develop lower back pain with paraesthesias. Myelogram performed 01/02- no cauda equina, no surgery indicated Pain management following -gabapentin -oxy IR -decadron -lidoderm patch Cerebral edema (HCC) 01/05/2020 - Present Current Assessment AND Plan 100 mannitol stat given during stroke team 01/04 Advancing HOB slowly today; if tolerates can start to mobilize HTS DC'd 01/06 Urinary retention 01/05/2020 - Present Current Assessment AND Plan DC Rodriguez 01/06> straight cath PRN Epilepsy (HCC) 01/05/2020 - Present Current Assessment AND Plan Cont home keppra- change to PO if tolerating diet today Seizure precautions No clinical events Hyperglycemia 01/05/2020 - Present Current Assessment AND Plan Hga1c 5.4 ISS Glucose checks q6h while NPO Compression of brainstem (HCC) 01/05/2020 - Present Current Assessment AND Plan PLAN: Repeat CTH much improved post blood patch Brain compression (HCC) 01/05/2020 - Present Constipation 01/05/2020 - Present Current Assessment AND Plan Lactulose Senna Intracranial hypotension 01/06/2020 - Present Current Assessment AND Plan PLAN: Treated with IV Caffeine earlier S/p blood patch 01/05 Clinically doing better Advancing activity slowly DC TLC Start chemo VTE ppx Muscle spasm of right lower extremity 2020 - Present Medication and Non-Pharmacologic VTE Prophylaxis/Anticoagula nts Anticoagulant AND Antiplatelet Medications (From admission, onward) Start Dose Route Frequency Ordered Stop 01/08/20 1030 aspirin 81 mg chewable tab(s) 81 mg PO/FT DAILY 01/08/20 1000 -- 01/07/20 1000 enoxaparin 40 mg injection (LOVENOX) 40 mg SUBCUTANEOUS EVERY 24 HOURS 01/07/20 0946 -- 01/04/20 0945 pneumatic compression stockings ([place], [place]) 01/03/20 0345 vte non-pharmacologic prophylaxis - none indicated ([place]) VTE Prophylaxis: VTE prophylaxis appropriate Plan of care discussed with: Provider, RN, Patient SIGNATURE: Kelly Robertson DO PATIENT NAME: Ortiz Jacobs DATE: January 08, 2020 TIME: 2:12 PM PAGER/CONTACT #: [phone] THE NEURO ICU MANAGEMENT OF THIS PATIENT WAS DISCUSSED WITH THE NSGY TEAM I have reviewed the progress note obtained and documented by the resident, and I personally participated in the garcia components. I have discussed the case and management of the patient's care. The following comments revise or confirm relevant garcia components of the note. I have repeated the examination and confirm the findings except as documented. PATIENT PROBLEMS I REVIEWED, REVISED AND/OR INITIATED: The care of this patient required my full attention and direct personal management of: Active Problems: Severe back pain Urinary retention Epilepsy (HCC) Hyperglycemia Constipation Muscle spasm of right lower extremity Resolved Problems: Cerebral edema (HCC) Compression of brainstem (HCC) Brain compression (HCC) Intracranial hypotension PLAN, IMPRESSION AND ACTION(S) TAKEN Intracranial hypotension, symptomatic - resolved after blood patch. - mobilize; PT/OT - DVT chemoprophylaxis - aspirin, statin for stroke like symptoms - TTE - continue decadron - diet - pain mgmt consult Transfer to floor Please see the documented [id number] plan in the updated problem list. Plan of care discussed with: Provider, RN, Patient. Beverly Vora DO Staff, Neurointensive Care [facility] [place] Date of Service: 01/08/2020 Time of Service: 2:17 PM This is an electronically created document. If printed, please do not remove from the chart or modify printed copy. > 35 min spent at bedside counseling family and discussing plan with consultants as well as bedside management of the patient. Normal [facility] Basic Metabolic Panelon 05- Anion gap [Moles/Vol] 10 mmol/L Normal 9-18 [facility] Comment on above: Performed By: #### M AG #### [facility] [address] [place], [place] [address] Calcium [Mass/Vol] 8.3 mg/dL Low 8.5-10.2 [facility] Comment on above: Performed By: #### M AG #### [facility] [address] [place], [place] [address] Chloride [Moles/Vol] 106 mmol/L High 97-105 [facility] Comment on above: Performed By: #### M AG #### [facility] [address] [place], [place] [address] CO2 Blood 28 mmol/L Normal 22-30 [facility] Comment on above: Performed By: #### M AG #### [facility] [address] [place], [place] [address] Creatinine [Mass/Vol] 0.69 mg/dL Normal 0.58-0.96 [facility] Comment on above: Performed By: #### M AG #### [facility] [address] [place], [place] [address] Glucose [Mass/Vol] 97 mg/dL Normal 74-99 [facility] Comment on above: Result Comment: The [place] [employer] (ADA) provides guidance for cutoff values for fasting glucose and random glucose. The ADA defines fasting as no caloric intake for at least 8 hours.Fasting plasma glucose results between 100 to 125 mg/dL indicate increased risk for diabetes (prediabetes). Fasting plasma glucose results greater than or equal to 126 mg/dL meet the criteria for diagnosis of diabetes. In the absence of unequivocal hyperglycemia, results should be confirmed by repeat testing. In a patient with classic symptoms of hyperglycemia or hyperglycemic crisis, random plasma glucose results greater than or equal to 200 mg/dL meet the criteria for diagnosis of diabetes. Reference: Standards of Medical Care in Diabetes 2016; [place] [employer]. Diabetes Care. 2016;39(Suppl 1). Performed By: #### M AG #### [facility] [address] [place], [place] [address] Potassium [Moles/Vol] 4.5 mmol/L Normal 3.7-5.1 [facility] Comment on above: Performed By: #### M AG #### [facility] [address] [place], [place] [address] Sodium [Moles/Vol] 144 mmol/L Normal 136-144 [facility] Comment on above: Performed By: #### M AG #### [place] [address] Urea nitrogen [Mass/Vol] 17 mg/dL Normal 7-21 [facility] Comment on above: Performed By: #### M AG #### [place] [address] Anion gap [Moles/Vol] 11 mmol/L Normal 9-18 [facility] Comment on above: Performed By: #### M AG #### [facility] [address] [place], [place] [address] Calcium [Mass/Vol] 8.3 mg/dL Low 8.5-10.2 [facility] Comment on above: Performed By: #### M AG #### [facility] [address] [place], [place] [address] Chloride [Moles/Vol] 105 mmol/L Normal 97-105 [facility] Comment on above: Performed By: #### M AG #### [facility] [address] [place], [place] [address] CO2 Blood 27 mmol/L Normal 22-30 [facility] Comment on above: Performed By: #### M AG #### [facility] [address] [place], [place] [address] Creatinine [Mass/Vol] 0.69 mg/dL Normal 0.58-0.96 [facility] Comment on above: Performed By: #### M AG #### [facility] [address] [place], [place] [address] Glucose [Mass/Vol] 99 mg/dL Normal 74-99 [facility] Comment on above: Result Comment: The [place] [employer] (ADA) provides guidance for cutoff values for fasting glucose and random glucose. The ADA defines fasting as no caloric intake for at least 8 hours.Fasting plasma glucose results between 100 to 125 mg/dL indicate increased risk for diabetes (prediabetes). Fasting plasma glucose results greater than or equal to 126 mg/dL meet the criteria for diagnosis of diabetes. In the absence of unequivocal hyperglycemia, results should be confirmed by repeat testing. In a patient with classic symptoms of hyperglycemia or hyperglycemic crisis, random plasma glucose results greater than or equal to 200 mg/dL meet the criteria for diagnosis of diabetes. Reference: Standards of Medical Care in Diabetes 2016; [place] [employer]. Diabetes Care. 2016;39(Suppl 1). Performed By: #### M AG #### [facility] [address] [place], [place] [address] Potassium [Moles/Vol] 4.5 mmol/L Normal 3.7-5.1 [facility] Comment on above: Performed By: #### M AG #### [facility] [address] [place], [place] [address] Sodium [Moles/Vol] 143 mmol/L Normal 136-144 [facility] Comment on above: Performed By: #### M AG #### [facility] [address] [place], [place] [address] Urea nitrogen [Mass/Vol] 15 mg/dL Normal 7-21 [facility] Comment on above: Performed By: #### M AG #### [facility] [address] [place], [place] [address] Magnesium Bloodon 2020 Magnesium [Mass/Vol] 2.5 mg/dL High 1.7-2.3 [facility] Comment on above: Performed By: #### M AG #### [facility] [address] [place], [place] [address] Osmolality Serumon 0 Osmolality [Osmolality] 302 mOsm/kg High 276-298 [facility] Comment on above: Performed By: #### M AG #### [facility] [address] [place], [place] [address] Osmolality [Osmolality] 298 mOsm/kg Normal 276-298 [facility] Comment on above: Performed By: #### M AG #### [facility] [address] [place], [place] [address] PROGRESSon 2020 PROGRESS HNO ID: [id number] Author: Melisa Bryant Service: Pain Management Author Type: Physician Type: Progress Notes Filed: 2020 3:48 PM Note Text: Name: ORTIZ JACOBS Age: [age] year old PAIN MANAGEMENT: Back Pain Pain Description: Patient complains of headache and hurting on her right side. Resting quietly, arousable appears comfortable 24H Pain Regimen: Decadron 4 mg IV ?4 Valium 5mg IV x 3 Fentanyl 50mcg IV x 3 Flexeril 5mg x 1- discontinued Gabapentin 300 mg ?2- discontinued Lidoderm patch Interval HPI: Events yesterday noted; neurology consult for mental status change and left facial droop; LUE weakness. CT brain with cerebral edema with cerebellar tonsillar herniation. Patient given mannitol. This morning patient had recurrent episode of left facial droop, left arm and leg weakness and paresthesias. Mannitol given again; repeat caffeine. 01/02 CT Myelogram L3?for small posterior central disc extrusion with caudal migration causing moderate narrowing of thecal sac left greater than right neural foraminal narrowing. Postop changes L4-S1. Thoracic spine T10-T11 small right paracentral disc protrusion Cervical spine mild multilevel cervical degenerative disc disease. Postsurgical changes at C6-C7 Subjective HPI: 49-year-old female with history of seizures, prior L4-S1 fusion in 2016 at [facility], prior C6-C7 fusion 2006, basilar artery aneurysm status post coiling 2011, stroke 2010 and GERD, gastroparesis status post gastric pacemaker presented 01/02 from [place] transfer with intractable back pain, urinary retention and severe bilateral lower extremity pain and spasm. Patient is followed by Dr. Robledo in [place] for pain management; last SI joint injection 12/28. CT myelogram pending; patient unable to have MRI due to gastric pacemaker. Of note, patient was hospitalized twice October, at [facility] for L3-L4 and T10-T11 disc herniation with radiculopathy. Outpatient PT, Decadron therapy and spine follow-up recommended. She re-presented with left arm numbness and facial droop; imaging negative for acute stroke. Symptoms felt to be secondary to migraine. In review of records during that hospitalization, there is concern for suspicious drug-seeking behavior as documented in the chart (including requesting opiate prescription at discharge despite recent filling prescription Percocet No. 100, and requesting IV opiates) Patient lives alone. She denies tobacco, alcohol or illicit meds. Home pain regimen includes gabapentin 300 mg 3 times daily. She no longer takes daily opiates. She previously had been on long-acting opiates last year. 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 11/11/2019 Gabapentin 300 MG Capsule 90.00 30 Eu Pet [id number] [id number] [place] 09/26/2019 2 09/25/2019 Oxycodone-Acetaminophen 5-325 12.00 3 Al Abby [id number] [facility] ([id number] 0 30.00 [place] 09/19/2019 2 09/19/2019 Oxycodone-Acetaminophen 5-325 15.00 3 Do Kol [id number] [facility] ([id number] 0 37.50 [place] 08/31/2019 2 08/31/2019 Gabapentin 300 MG Capsule 90.00 30 Ay Bas [id number] [facility] ([id number] [place] 07/15/2019 2 07/15/2019 Gabapentin 300 MG Capsule 90.00 30 Ay Bas [id number] [facility] ([id number] [place] 06/03/2019 2 05/30/2019 Diazepam 5 MG Tablet 10.00 4 To Le [id number] [facility] ([id number] 0 1.25 LME [place] 06/03/2019 2 05/30/2019 Oxycodone-Acetaminophen 5-325 12.00 3 To Le [id number] [facility] ([id number]) 0 30.00 [place] 06/03/2019 2 06/03/2019 Gabapentin 300 MG Capsule 60.00 20 Je B [id number] [facility] ([id number]) 0 Medicare Current Facility-Administered Medications Medication Dose Route Frequency Provider Last Rate Last Dose - enoxaparin 40 mg injection (LOVENOX) 40 mg SUBCUTANEOUS q 24 HR Michelle Talavera 40 mg at 01/07/20 1304 - bisacodyl 10 mg suppository (DULCOLAX) 10 mg RECTAL ONCE Mickie (Rn Integrated) Herraiz - prochlorperazine 10 mg injection (COMPAZINE) 10 mg INTRAVENOUS q 6 H PRN Michelle Talavera 10 mg at 01/07/20 1512 - diazePAM 5 mg injection (VALIUM) 5 mg INTRAVENOUS q 6 H PRN Erika Urbinao 5 mg at 01/07/20 0803 - pantoprazole 40 mg injection (PROTONIX) 40 mg INTRAVENOUS DAILY (6 AM) Erika Urbinao 40 mg at 01/07/20 0515 - perflutren lipid microspheres 1.1 mg/mL 1.3 mL injection (DEFINITY) 1.3 mL INTRAVENOUS DIRECTED PRN Erika Goins - ipratropium-albuterol 3 mL nebulizer solution (DUONEB) 3 mL INHALATION QID Erika Rivera Julio C 3 mL at 01/07/20 1540 - potassium chloride ER 20-40 mEq tab(s) (K-DUR, KLOR-CON) 20-40 mEq ORAL/FEEDING TUBE PRN Erika Goins Or - potassium chloride iv piggyback 20 mEq/100 mL 20 mEq INTRAVENOUS PRN Erika Goins - magnesium sulfate in water 2 g in sterile water 50 ml 2 g INTRAVENOUS PRN Erika Goins - sodium phosphate 45 mmol in NaCl 0.9% 250 mL 45 mmol INTRAVENOUS PRN Erika Urbinao - calcium gluconate 4 g in NaCl 0.9% 250 mL 4 g INTRAVENOUS PRN Erika Urbinao - levETIRAcetam iv piggyback 1,500 mg in NaCl (iso-osmotic) 100 mL (KEPPRA) 1,500 mg INTRAVENOUS BID Erika Urbinao 400 mL/hr at 01/07/20 0758 1,500 mg at 01/07/20 0758 - ondansetron 4 mg tab(s) (ZOFRAN) 4 mg ORAL/FEEDING TUBE q 6 H PRN Erika Goins Or - ondansetron (PF) 4 mg injection (ZOFRAN) 4 mg INTRAVENOUS q 6 H PRN Erika R Julio C 4 mg at 01/07/20 1150 - insulin lispro pen (rapid acting) (HumaLOG KWIKPEN) SUBCUTANEOUS q 6 H Erika R Julio C - fentaNYL 50 mcg/mL 25-50 mcg injection (SUBLIMAZE) 25-50 mcg INTRAVENOUS q 1 H PRN Erika R Julio C 50 mcg at 01/07/20 1150 - sodium chloride 0.65 % 2 [place] (AYR, OCEAN) 2 [place] EACH NOSTRIL PRN Erika R Julio C - NaCl 0.9% 3-5 mL 3-5 mL INTRAVENOUS q 12 H Erika R Julio C 5 mL at 01/07/20 0758 - dexamethasone sodium phosphate 4 mg injection (DECADRON) 4 mg INTRAVENOUS q 6 H Erika R Julio C 4 mg at 01/07/20 1303 - dextrose 40 % 15 g 15 g ORAL PRN Erika R Julio C Or - glucagon 1 mg injection (GLUCAGEN) 1 mg INTRAMUSCULAR PRN Erika R Julio C Or - dextrose 50% in water 25 mL syringe 12.5 g INTRAVENOUS PRN Erika R Julio C - albuterol 2.5 mg /3 mL (0.083 %) 2.5 mg (PROVENTIL) 2.5 mg INHALATION q 6 H PRN Erika R Julio C 2.5 mg at 01/05/20 1355 - lidocaine 4 % 1 Patch (SALONPAS) 1 Patch TRANSDERMAL DAILY Erika R Julio C 1 Patch at 01/07/20 0758 And - lidocaine patch - REMOVE OTHER AT BEDTIME Erika R Julio C And - lidocaine - VERIFY PATCH OTHER q 8 H Erika R Julio C gabapentin (NEURONTIN) 300 mg capsule, Take 300 mg by mouth three times daily., Disp: , Rfl: fluticasone-salmeterol (ADVAIR DISKUS) 250-50 mcg/dose, Inhale 1 Puff as instructed twice daily., Disp: , Rfl: Multivitamins-Minerals- Lutein (MULTIVITAMIN 50 PLUS) tab, Take 1 tablet by mouth once daily., Disp: , Rfl: levETIRAcetam (KEPPRA) 250 mg tablet, Take 1,500 mg by mouth twice daily. , Disp: , Rfl: , 01/02/2020 at Unknown time melatonin 10 mg tab, Take 10 mg by mouth daily at bedtime., Disp: , Rfl: , 01/02/2020 at Unknown time ALBUTEROL INHALATION, Inhale as instructed twice daily., Disp: , Rfl: , 01/02/2020 at Unknown time fluticasone propionate (FLONASE ALLERGY RELIEF NASAL), Use 1 [place] in the nose twice daily. , Disp: , Rfl: , 01/02/2020 at Unknown time omeprazole (PRILOSEC) 20 mg ORAL capsule, Take 40 mg by mouth once daily. , Disp: , Rfl: 0, 01/02/2020 at Unknown time Social History Tobacco Use - Smoking status: Current Every Day Smoker Packs/day: 0.50 Years: 10.00 Pack years: 5.00 Types: Cigarettes Substance Use Topics - Alcohol use: Yes Comment: Occassionally - Drug use: No FAMILY HISTORY Problem Relation Age of Onset - Arthritis Father - Coronary Artery Disease Father - Hypertension Father - Lipids Father - Arthritis Mother - Diabetes Mother - Hypertension Mother - Psychiatry Brother bipolar - Cancer Sister - Headache Sister - Psychiatry Sister bipolar No past surgical history on file. ROS: All of the following reviewed and negative except as noted below: GENERAL: no fever, chills, sweats, weight loss,+ fatigue, generalized weakness HEENT: no headache, vision changes, eye discomfort, hearing change, ear discomfort, sinus pain, nasal discharge or congestion, oral lesions, soreness, dental problem NECK: no adenopathy, discomfort, change in ROM CHEST: no shortness of breath, dyspnea on exertion, wheezing, cough, sputum production or chest pain HEART: no chest pain, palpitations, syncope ABDOMEN: no nausea, vomiting, constipation, diarrhea, abdominal pain : no dysuria, urgency, frequency, history of stones, incontinence NEURO: no confusion or alteration in consciousness, slurred speech, seizure, see HPI EXTREMITIES: no new pain, edema, change in ROM HEME: no new adenopathy, bruises, petechiae PSYCH: no depression, anxiety, agitation PAIN PSYCHIATRIC EXAM: GENERAL: alert, oriented to person, place, time JUDGMENT AND INSIGHT: intact APPEARANCE: neatly groomed DEMEANOR: coooperative, not hostile, mistrustful, preoccupied, or demanding ACTIVITY: normal, not hyperactive or hypoactive, no tremors, tics EYE CONTACT: normal SPEECH: normal, rate, volume, articulation, coherence, spontaneity MOOD: anxious IDEATION: deferred MEMORY: intact PHYSICAL EXAMINATION: GENERAL: well nourished and developed; anxious; alert and oriented x 3; intact judgement and insight; trendelenberg HEENT: no evidence of trauma; cranial nerves intact; eyes clear EOMI; no hearing deficits apparent; nasal passages unremarkable; throat and mucous membranes clear NECK: supple without lymphadenopathy; no JVD; no thyromegaly CHEST: clear bilaterally to auscultation; normal chest movement; no rales or rhonchi HEART: regular rate and rhythm, normal S1 and S2, no murmurs, clicks, rubs, or gallops ABDOMEN: soft; nondistended; bowel sounds present; no hepatomegaly; no splenomegaly; no tenderness EXTREMITIES: no evidence of clubbing; no cyanosis; no deformity; no joint effusion; no edema NEURO: no confusion; no tremor; sensorium normal; mild weakness LUE/LLE SKIN: no rash; no skin breakdown; no decubitus lesions HEME: no bruising; no adenopathy PSYCH: no evidence of depression; + anxiety; no agitation; no apparent hallucinations BP 128/94 Pulse 74 Temp 36.6 ?C (97.9 ?F) (Temporal) Resp 20 Ht 175.3 cm (5' 9) Wt 102 kg (224 lb 13.9 oz) SpO2 98% BMI 33.21 kg/m? BMI 33.21 kg/(m2) Date 01/02/20 0700 - 01/03/20 0659(Not Admitted) 01/03/20 0700 - 01/04/20 0659 Shift 0080-0974 1383-8550 6605-7904 24 Hour Total 0045-4821 7061-5447 7990-4198 24 Hour Total INTAKE Shift Total OUTPUT Urine 1300 1300 Output ( Indwelling Urinary Catheter 01/03/20 0325 Admission to Hospital Rodriguez 16 Fr) 1300 1300 Shift Total 1300 1300 Weight (kg) 100.2 100.2 100.2 100.2 100.2 100.2 ABNORMAL/NEW FINDINGS: NONE RADIOLOGY/DIAGNOSTICS: LABORATORY: CBC: No results for input(s): WBC, RBC, HB, HCT, PLT, MCV, MCH, MPV, RDW in the last 24 hours. CMP: Recent Labs 01/07/20 0445 NA 144 K 4.5 CHLOR 106* CO2 28 BUN 17 CREAT 0.69 GLUC 97 CA 8.3* MG 2.5* ANION 10 Heme: No results for input(s): RETICP, ABSRETIC, LD, RADHA, FE, TIBC, TRANSFERSAT in the last 24 hours. 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 No surgical intervention needed per NS On 01/04 pt developed dysphagia, left facial droop and left side weakness; CTH + cerebral edema- possible result of CSF leak after myelogram per chart. Pt transferred to NSICU; given Mannitol and caffeine. 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 Robledo in [place] after discharge Melisa Bryant MD [facility] PROGRESS HNO ID: [id number] Author: Beverly Vora Service: Neurology ICU Author Type: Physician Type: Progress Notes Filed: 2020 12:24 PM Note Text: SERVICE DATE: 2020 SERVICE TIME: 0845 NEURO ICU PROGRESS NOTE DATE OF ADMISSION: 01/03/2020 Subjective Hospital Course: 01/04: arrived to NSICU from floor with intracranial hypotension. Left facial and LUE weakness. Transient episode of apnea that improved with Trandelenburg positioning and osmotherapy. CVP placed. 01/04 PM: spasms and pain to bilateral LE; nausea with emesis x1 > exam unchanged; pupils equal and reactive 01/05 episode of left facial droop, left arm and leg weakness and paraesthesia on left> Mannitol given; still unclear if dye reaction or CSF leak; cerebral edema 2/2 dye should improve 24-48 hours; CSF leak will be more prolonged recovery; repeated Caffeine infusion 01/06 doing better; tolerating HOB raised> will continue as day progresses; start diet and DC central line; start VTE ppx; symptoms better but still having LE spasms Objective BP 121/64 Pulse 66 Temp 36.5 ?C (97.7 ?F) (Temporal) Resp 18 Ht 175.3 cm (5' 9) Wt 102 kg (224 lb 13.9 oz) SpO2 97% BMI 33.21 kg/m? Weight change: -0.694 kg (-1 lb 8.5 oz) Neuro: Alert; oriented x3; speech clear, fluent; PERRL, EOMI; no facial droop GCS: Eyes: 4. Spontaneous Verbal: 5: Oriented Motor: 6: Obeys Motor commands Total: 15 MOTOR STRENGTH: Upper and lower extremity 5/5 R UE/LE; L hemiparesis SENSATION: diminished subjective sensation to LT arm COORDINATION: Finger-to- nose-finger intact bilaterally CV: HRR Pulm: CTA even and unlabored on RA, GI/: soft; NT/ND positive BS Skin/Extremities: Edema- No Peripheral pulses- Present all extremities Wounds/Drsgs- LP site C/D Breakdown- No Diagnostic tests reviewed for today's visit: Most recent labs and imaging results. Lines, Drains, and Airways Line Central Line Triple Lumen 01/05/20 1600 Non-tunneled Right Groin 1 day Drain Indwelling Urinary Catheter 01/05/20 1544 Assessment Rodriguez 16 Fr 1 day ICU Checklist Last Documented/Reviewed time: 01/06/2020 4:12 PM ------ - ICU Delirium Status: CAM Negative - no action required Restraint Status: None ICU Mobility-Pt Has Been Out of Bed: No - Specify Line Status: Central multi-lumen catheter Central Line Status: Reason to maintain Central Line Reason to Maintain: Poor access, Other IV med administration Ventilator: None Rodriguez Status: Present, will maintain Rodriguez Status Details: Accurate measurement of urine output GI/Stress Ulcer Prophylaxis: None - not required Nutrition is at Goal: NPO VTE Prophylaxis: Chemoprophylaxis: No chemoprophylaxis No Chemoprophylaxis Reason: Bleeding risk Pressure Injury Status: None ICU plan of care visit at bedside in last 24 hours: Yes, Provider, RN, Patient/ designee ICU Disposition- Is Patient Clinically Ready to Transfer to [facility] or SDU?: No Discharge Planning: To be determined PERSONAL INVOLVEMENT IN CARE: Reviewing initiation, responses and adjustments to therapies, coordination of care, and updating family with Staff Physician, Dr. Vora. Assessment AND Plan 49 year old, female who was admitted for low back complaints, urinary retention with difficulty ambulating. S/P myelogram 01/02. Stroke team called 01/04 for left facial droop. CT brain attack performed noted cerebral edema with tonsillar herniation and transferred to NSICU. ? Active Hospital Problems as of 2020 Noted - Resolved Hospital Brain compression (HCC) 01/05/2020 - Present Cerebral edema (HCC) 01/05/2020 - Present Current Assessment AND Plan 100 mannitol stat given during stroke team 01/04 Advancing HOB slowly today; if tolerates can start to mobilize HTS DC'd 01/06 Compression of brainstem (HCC) 01/05/2020 - Present Current Assessment AND Plan PLAN: Repeat CTH much improved post blood patch Constipation 01/05/2020 - Present Current Assessment AND Plan Lactulose Senna Epilepsy (HCC) 01/05/2020 - Present Current Assessment AND Plan Cont home keppra- change to PO if tolerating diet today Seizure precautions No clinical events Hyperglycemia 01/05/2020 - Present Current Assessment AND Plan Hga1c 5.4 ISS Glucose checks q6h while NPO Intracranial hypotension 01/06/2020 - Present Current Assessment AND Plan PLAN: Treated with IV Caffeine earlier S/p blood patch 01/05 Clinically doing better Advancing activity slowly DC TLC Start chemo VTE ppx Muscle spasm of right lower extremity 2020 - Present Severe back pain 01/03/2020 - Present Current Assessment AND Plan Had epidural injection performed december 27 then started to develop lower back pain with paraesthesias. Myelogram performed 01/02- no cauda equina, no surgery indicated Pain management following -gabapentin -oxy IR -decadron -lidoderm patch Urinary retention 01/05/2020 - Present Current Assessment AND Plan DC Rodriguez 01/06> straight cath PRN Medication and Non-Pharmacologic VTE Prophylaxis/Anticoagula nts Anticoagulant AND Antiplatelet Medications (From admission, onward) Start Dose Route Frequency Ordered Stop 01/07/20 1000 enoxaparin 40 mg injection (LOVENOX) 40 mg SUBCUTANEOUS EVERY 24 HOURS 01/07/20 0946 -- 01/04/20 0945 pneumatic compression stockings (il,oh) 01/03/20 0345 vte non-pharmacologic prophylaxis - none indicated (il,nc) VTE Prophylaxis: VTE prophylaxis appropriate Plan of care discussed with: ICU Team and RN SIGNATURE: Michelle Talavera APRN.ABRAHAN PATIENT NAME: Ortiz Jacobs DATE: 2020 TIME: 12:17 PM PAGER/CONTACT #: [phone] minutes of CCT Attending Note I have personally performed a face to face assessment of the patient and have reviewed the PA/AMUSEMENT RIDE OPERATOR note. The patient currently has the following hospital problems: Active Problems: Severe back pain Cerebral edema (HCC) Urinary retention Epilepsy (HCC) Hyperglycemia Compression of brainstem (HCC) Brain compression (HCC) Constipation Intracranial hypotension Muscle spasm of right lower extremity Resolved Problems: * No resolved hospital problems. * Plans for today: Intracranial hypotension, symptomatic - resolved after blood patch. - HOB at 30 degrees and tolerating; continue to increase - d/c VPA - d/c CVP - d/c 3% - d/c sodium checks - DVT chemoprophylaxis - continue decadron - diet - pain and spasm control (heat wrap for gastroc is working) - d/c rodriguez - swish and spit for injured tooth (vomited in bathroom on RNF and injured tooth per her) Signature: Beverly Vora DO Date: 2020 Time: 12:23 PM Normal [facility] PROGRESS HNO ID: [id number] Author: Mickie Irvin) Alvaro Service: Neurosurgery Author Type: Nurse Practitioner Type: Progress Notes Filed: 2020 10:37 AM Note Text: PROGRESS NOTE NEUROSURGERY SERVICE DATE: 2020 SERVICE TIME: 0730 Subjective No events overnight. Had blood patch yesterday afternoon. Lying on side in bed. C/o abdomen pain, nausea and increased back pain, pt attributes symptoms to not having BM in one week. She has been getting lactulose but feels this is not enough and would like to sit up. Headache has overall greatly improved. Current Facility-Administered Medications Medication Dose Route Frequency - NaCl 0.9% 3-5 mL 3-5 mL INTRAVENOUS q 12 H - dexamethasone sodium phosphate 4 mg injection (DECADRON) 4 mg INTRAVENOUS q 6 H - dextrose 40 % 15 g 15 g ORAL PRN Or - glucagon 1 mg injection (GLUCAGEN) 1 mg INTRAMUSCULAR PRN Or - dextrose 50% in water 25 mL syringe 12.5 g INTRAVENOUS PRN - albuterol 2.5 mg /3 mL (0.083 %) 2.5 mg (PROVENTIL) 2.5 mg INHALATION q 6 H PRN - lidocaine 4 % 1 Patch (SALONPAS) 1 Patch TRANSDERMAL DAILY And - lidocaine patch - REMOVE OTHER AT BEDTIME And - lidocaine - VERIFY PATCH OTHER q 8 H - sodium chloride 0.65 % 2 [place] (AYR, OCEAN) 2 [place] EACH NOSTRIL PRN - perflutren lipid microspheres 1.1 mg/mL 1.3 mL injection (DEFINITY) 1.3 mL INTRAVENOUS DIRECTED PRN - ipratropium-albuterol 3 mL nebulizer solution (DUONEB) 3 mL INHALATION QID - potassium chloride ER 20-40 mEq tab(s) (K-DUR, KLOR-CON) 20-40 mEq ORAL/FEEDING TUBE PRN Or - potassium chloride iv piggyback 20 mEq/100 mL 20 mEq INTRAVENOUS PRN - magnesium sulfate in water 2 g in sterile water 50 ml 2 g INTRAVENOUS PRN - sodium phosphate 45 mmol in NaCl 0.9% 250 mL 45 mmol INTRAVENOUS PRN - calcium gluconate 4 g in NaCl 0.9% 250 mL 4 g INTRAVENOUS PRN - levETIRAcetam iv piggyback 1,500 mg in NaCl (iso-osmotic) 100 mL (KEPPRA) 1,500 mg INTRAVENOUS BID - ondansetron 4 mg tab(s) (ZOFRAN) 4 mg ORAL/FEEDING TUBE q 6 H PRN Or - ondansetron (PF) 4 mg injection (ZOFRAN) 4 mg INTRAVENOUS q 6 H PRN - insulin lispro pen (rapid acting) (HumaLOG KWIKPEN) SUBCUTANEOUS q 6 H - fentaNYL 50 mcg/mL 25-50 mcg injection (SUBLIMAZE) 25-50 mcg INTRAVENOUS q 1 H PRN - valproate sodium 500 mg in NaCl 0.9% 100 mL (DEPACON) 500 mg INTRAVENOUS q 8 H - diazePAM 5 mg injection (VALIUM) 5 mg INTRAVENOUS q 6 H PRN - pantoprazole 40 mg injection (PROTONIX) 40 mg INTRAVENOUS DAILY (6 AM) - enoxaparin 40 mg injection (LOVENOX) 40 mg SUBCUTANEOUS q 24 HR - bisacodyl 10 mg suppository (DULCOLAX) 10 mg RECTAL ONCE Objective Physical Exam Performed: General -obese, calm, pleasant Resp - even unlabored GI - abdomen soft NT, ND Skin - no lesions, abrasions or bruises Neuro - A+O x3,sensation intact, PORTILLO, strength 4/5 BUE and BLE and equal VITAL SIGNS 24 HOUR REVIEW: Patient Vitals for the past 24 hrs: BP Temp Temp src Pulse Resp SpO2 01/07/20 0900 121/64 ? ? 69 14 93 % 01/07/20 0800 137/64 ? ? 72 17 97 % 01/07/20 0755 ? ? ? 65 18 96 % 01/07/20 0727 ? 36.5 ?C (97.7 ?F) Temporal ? ? ? 01/07/20 0700 127/67 ? ? 64 16 93 % 01/07/20 0600 120/78 ? ? 70 15 95 % 01/07/20 0500 99/69 ? ? 72 14 96 % 01/07/20 0413 ? 36.4 ?C (97.5 ?F) ? 01/07/20 0400 103/71 ? ? 76 10 98 % 01/07/20 0300 119/54 ? ? 63 14 95 % 01/07/20 0200 126/63 ? ? 61 14 95 % 01/07/20 0100 127/64 ? ? 65 11 95 % 01/07/20 0000 92/65 ? ? 74 17 94 % 01/06/20 2300 122/72 ? ? 69 15 96 % 01/06/20 2200 112/60 ? ? 66 22 94 % 01/06/20 2100 100/55 ? ? 77 14 97 % 01/06/20 2000 109/60 ? ? 76 14 94 % 01/06/20 1900 104/54 36.9 ?C (98.4 ?F) ? 75 22 93 % 01/06/20 1800 124/73 ? ? 83 17 98 % 01/06/20 1700 121/58 ? ? 70 20 98 % 01/06/20 1600 114/68 ? ? 73 18 99 % 01/06/20 1400 123/65 ? ? 77 13 97 % 01/06/20 1300 105/65 ? ? 63 13 94 % 01/06/20 1200 122/62 ? ? 75 15 94 % 01/06/20 1144 ? ? ? 65 16 93 % 01/06/20 1100 122/70 ? ? 73 15 91 % 01/06/20 1057 ? 36.4 ?C (97.5 ?F) ? DATA: Diagnostic tests reviewed for today's visit: CT brain - images and report reviewed - '1. ?No evidence of acute cranial process. 2. ?Interval resolution of cerebral edema compared to yesterday's exam.' Assessment/Plan Active Problems: 49 yo female acute on chronic LBP with spasms and CSF leak s/p CT myelogram, s/p blood patch, - neuro greatly improved back to baseline no neurosurgery indicated at this time ?bowel regimen Pain control per PM Med mgmt Ok OOB if OK with Neurology - pt with hx of coiled basilar aneurysm and was lost to follow up. Pt needs to f/u with Dr. Leon in the next few weeks for further evaluation ? Will sign off Severe back pain POA: Yes Assessment AND Plan: Cerebral edema (HCC) POA: No Assessment AND Plan: Urinary retention POA: No Assessment AND Plan: Epilepsy (HCC) POA: Yes Assessment AND Plan: Hyperglycemia POA: Yes Assessment AND Plan: Constipation POA: Yes Assessment AND Plan: Intracranial hypotension POA: No Assessment AND Plan: Resolved Problems: * No resolved hospital problems. * Medication and Non-Pharmacologic VTE Prophylaxis/Anticoagula nts Anticoagulant AND Antiplatelet Medications (From admission, onward) Start Dose Route Frequency Ordered Stop 01/07/20 1000 enoxaparin 40 mg injection (LOVENOX) 40 mg SUBCUTANEOUS EVERY 24 HOURS 01/07/20 0946 -- 01/04/20 0945 pneumatic compression stockings (il,nc) 01/03/20 0345 vte non-pharmacologic prophylaxis - none indicated (il,oh) VTE Prophylaxis: VTE prophylaxis appropriate SIGNATURE: Mickie John APRN.CNP PATIENT NAME: Ortiz Jacobs DATE: 2020 TIME: 10:30 AM PAGER/CONTACT #: [phone] Normal [facility] Phosphorous Bloodon 01-07-20 20 Phosphate [Mass/Vol] 3.8 mg/dL Normal 2.7-4.8 [facility] Comment on above: Performed By: #### M AG #### [place] [address] THERAPY NTon 2020 THERAPY NT HNO ID: [id number] Author: Lady (Ccc-Investor Relations Coordinator) EFRAIN Heath/RADIO STATION ENGINEER Service: Speech/Swallow Author Type: Speech Language Pathologist Type: Therapy (PT/OT/Speech/Resp) Filed: 2020 1:43 PM Note Text: Speech Therapy Clinical Swallow Evaluation SERVICE DATE: 2020 SERVICE TIME: 1322 to 1334 ROOM: [place] [address] Nursing Recommendations: See swallow guide posted in patients room;Reinforce use of swallowing strategies Diet Recommendations: Regular Consistency Thin Liquids IDDSI Level 0 Swallowing Precautions Recommendations: Feed / Eat at a slow rate Sit upright 90 degrees for all PO Small Bite/Sip Results and Recommendations Discussed With: Patient;Nurse Recommended Discharge Disposition: Home Recommended Discharge Disposition Comments: Do not anticipate skilled Speech Therapy needs post d/c IMPRESSION: Patient demonstrates oral dysphagia which is negatively impacting his/her ability to effectively maintain adequate nutrition and hydration and/or airway safety. Rehabilitation Precautions: Aspiration Precautions Isolation Type: None ASSESSMENT: Tolerated Full Session -Patient asleep in bed on RADIO STATION ENGINEER arrival, woke easily agreeable to evaluation -Patient reported tingling on left side of face, denies numbness, believes she is at baseline for decreased ROM on left side of face from prior CVA -Able to feed self -Mastication time increased for solids -Trace oral residuals post swallow, able to clear with liquid wash -Required cues for placement of straw on right for adequate seal for use -Laryngeal movement detected upon palpation of swallow -No cough, throat clear, or change in vocal quality with po trials -Completed 3 oz water challenge with no cough, throat clear, or change in vocal quality -Recommend diet and strategies as above -Patient requires continued skilled Speech Therapy for dysphagia Goals for Plan of Care: Swallow Goals: Patient will tolerate Regular Consistency diet consistency while utilizing compensatory/swallowing strategies given minimal cues in 90% of trials so that the patient will minimize the signs/symptoms of dysphagia. Patient will tolerate Thin Liquids IDDSI Level 0 consistency while utilizing compensatory/swallowing strategies given minimal cues in 90% of trials so that the patient will minimize the signs/symptoms of dysphagia. Patient will demonstrate adequate return of knowledge of all compensatory strategies/instruction to effectively assist the patient in immediate safety with oral intake and swallowing. Patient /Caregiver Goals: Eat/Drink Without Restrictions Speech Rehab Potential: Good PLAN: Treatment Frequency (times per week): 1 Current admission Treatment Interventions: Dysphagia Management Plan of Care Developed with: Patient TREATMENT INTERVENTIONS: Therapy Diagnosis: Dysphagia, oral phase Interventions Provided: Clinical Swallow Evaluation (85945) $ Clinical Swallow Evaluation (49891) Billed Units: 1 unit Total Treatment Time (minutes): 12 SUBJECTIVE: Current Hospital Course: Chart reviewed; Reason for admission: 49yo F with a pertinent history of cauda equina syndrome 3 years ago for which she got decompression surgery, epilepsy, and brain aneurysm s/p coiling in the past, migraines, gastroparesis with pacer, and fibromyalgia presented to [facility] for the above CC. Please see [facility] documents on the chart, I have updated this note with the labs and imaging results. The patient had an epidural injection on December 27 then on Thursday at 11pm she felt very uncomfortable when she laid down on the bed developing lower back pain. Today she had severe lower back pain with pins and needles down both legs all over and severe tightening feelings in her calves. She has not been able to urinate for 6 hours and was found to have 420cc retention at [facility] therefore a rodriguez was placed. Her legs are very weak and she is unable to ambulate. No fecal incontinence. CT Brain IMPRESSION: 1. No evidence of acute cranial process. 2. Interval resolution of cerebral edema compared to yesterday's exam. Chest xray IMPRESSION: No acute radiographic abnormality. Reason for Speech Therapy Consult: Concern for dysphagia Relevant Past Medical History: Stroke, Intracranial aneurysm, stomach CA Patient Report: My birthday is tomorrow Home Environment Prior Functional Level: Within Functional Limits Prior Swallowing Function/Diet Textures: Regular Consistency;Thin Liquids IDDSI Level 0 Please see discipline specific clinical documentation flowsheet for complete details for this therapy evaluation/treatment. SIGNATURE: Lady Heath CCC-RADIO STATION ENGINEER PATIENT NAME: Ortiz Jacobs DATE: 2020 TIME: 1:39 PM Normal [facility] Activated PTTon 01-06-2020 aPTT Coag (Bld) [Time] 22.4 s Low 23.0-32.4 [facility] Comment on above: Result Comment: Unfr actionated Heparin Therapeutic Ranges: Standard Heparin Nomogram: 53 to 78 seconds (anti-Xa level of 0.3 to 0.7 U/mL) Low Dose/ACS Nomogram: 49 to 67 seconds (anti-Xa level of 0.2 to 0.5 U/mL) Stroke Treatment Nomogram: 49 to 67 seconds (anti-Xa level of 0.2 to 0.5 U/mL) Note: The APTT therapeutic range has been determined for the current lot of laboratory APTT reagent in use throughout the [facility]. Performed By: #### U RIN2 #### [address] [address] Basic Metabolic Panelon 12-22 Anion gap [Moles/Vol] 10 mmol/L Normal 9-18 [facility] Comment on above: Performed By: #### G FR #### [address] [address] Anion gap [Moles/Vol] 12 mmol/L Normal 9-18 [facility] Comment on above: Performed By: #### U RIN2 #### [address] [address] Calcium [Mass/Vol] 8.1 mg/dL Low 8.5-10.2 [facility] Comment on above: Performed By: #### U RIN2 #### [address] [address] Calcium [Mass/Vol] 8.2 mg/dL Low 8.5-10.2 [facility] Comment on above: Performed By: #### U RIN2 #### [address] [address] Calcium [Mass/Vol] 7.9 mg/dL Low 8.5-10.2 [facility] Comment on above: Performed By: #### G FR #### [facility] [address] [place] [address] Chloride [Moles/Vol] 104 mmol/L Normal 97-105 [facility] Comment on above: Performed By: #### U RIN2 #### [facility] [address] [place] [address] Performed By: #### G FR #### [facility] [address] [place] [address] CO2 Blood 26 mmol/L Normal 22-30 [facility] Comment on above: Performed By: #### G FR #### [facility] [address] [place] [address] Performed By: #### U RIN2 #### [facility] [address] [place] [address] CO2 Blood 27 mmol/L Normal 22-30 [facility] Comment on above: Performed By: #### U RIN2 #### [facility] [address] [place] [address] Creatinine [Mass/Vol] 0.66 mg/dL Normal 0.58-0.96 [facility] Comment on above: Performed By: #### U RIN2 #### [facility] [address] [place] [address] Creatinine [Mass/Vol] 0.68 mg/dL Normal 0.58-0.96 [facility] Comment on above: Performed By: #### U RIN2 #### [place] [address] Creatinine [Mass/Vol] 0.71 mg/dL Normal 0.58-0.96 [facility] Comment on above: Performed By: #### G FR #### [place] [address] Glucose [Mass/Vol] 91 mg/dL Normal 74-99 [facility] Comment on above: Result Comment: The [place] [employer] (ADA) provides guidance for cutoff values for fasting glucose and random glucose. The ADA defines fasting as no caloric intake for at least 8 hours.Fasting plasma glucose results between 100 to 125 mg/dL indicate increased risk for diabetes (prediabetes). Fasting plasma glucose results greater than or equal to 126 mg/dL meet the criteria for diagnosis of diabetes. In the absence of unequivocal hyperglycemia, results should be confirmed by repeat testing. In a patient with classic symptoms of hyperglycemia or hyperglycemic crisis, random plasma glucose results greater than or equal to 200 mg/dL meet the criteria for diagnosis of diabetes. Reference: Standards of Medical Care in Diabetes 2016; [place] [employer]. Diabetes Care. 2016;39(Suppl 1). Performed By: #### U RIN2 #### [address] [address] Glucose [Mass/Vol] 95 mg/dL Normal 74-99 [facility] Comment on above: Result Comment: The [place] [employer] (ADA) provides guidance for cutoff values for fasting glucose and random glucose. The ADA defines fasting as no caloric intake for at least 8 hours.Fasting plasma glucose results between 100 to 125 mg/dL indicate increased risk for diabetes (prediabetes). Fasting plasma glucose results greater than or equal to 126 mg/dL meet the criteria for diagnosis of diabetes. In the absence of unequivocal hyperglycemia, results should be confirmed by repeat testing. In a patient with classic symptoms of hyperglycemia or hyperglycemic crisis, random plasma glucose results greater than or equal to 200 mg/dL meet the criteria for diagnosis of diabetes. Reference: Standards of Medical Care in Diabetes 2016; [place] [employer]. Diabetes Care. 2016;39(Suppl 1). Performed By: #### U RIN2 #### [address] [address] Glucose [Mass/Vol] 105 mg/dL High 74-99 [facility] Comment on above: Result Comment: The [place] [employer] (ADA) provides guidance for cutoff values for fasting glucose and random glucose. The ADA defines fasting as no caloric intake for at least 8 hours.Fasting plasma glucose results between 100 to 125 mg/dL indicate increased risk for diabetes (prediabetes). Fasting plasma glucose results greater than or equal to 126 mg/dL meet the criteria for diagnosis of diabetes. In the absence of unequivocal hyperglycemia, results should be confirmed by repeat testing. In a patient with classic symptoms of hyperglycemia or hyperglycemic crisis, random plasma glucose results greater than or equal to 200 mg/dL meet the criteria for diagnosis of diabetes. Reference: Standards of Medical Care in Diabetes 2016; [place] [employer]. Diabetes Care. 2016;39(Suppl 1). Performed By: #### G FR #### [facility] [address] [place], [place] [address] Potassium [Moles/Vol] 4.4 mmol/L Normal 3.7-5.1 [facility] Comment on above: Performed By: #### U RIN2 #### [place] [address] Performed By: #### G FR #### [facility] [address] [place], [place] [address] Potassium [Moles/Vol] 4.1 mmol/L Normal 3.7-5.1 [facility] Comment on above: Performed By: #### U RIN2 #### [address] [address] Sodium [Moles/Vol] 143 mmol/L Normal 136-144 [facility] Comment on above: Performed By: #### U RIN2 #### [address] [address] Sodium [Moles/Vol] 140 mmol/L Normal 136-144 [facility] Comment on above: Performed By: #### G FR #### [facility] [address] [place], [place] [address] Sodium [Moles/Vol] 142 mmol/L Normal 136-144 [facility] Comment on above: Performed By: #### U RIN2 #### [address] [address] Urea nitrogen [Mass/Vol] 15 mg/dL Normal 7-21 [facility] Comment on above: Performed By: #### G FR #### [address] [address] Urea nitrogen [Mass/Vol] 13 mg/dL Normal 7-21 [facility] Comment on above: Performed By: #### U RIN2 #### [address] [address] CASE MANAGEMon 01-06-2020 CASE MANAGEM HNO ID: [id number] Author: Olga Phillips Sec Service: Care Management Author Type: ? Type: Care Mgt Progress Note Filed: 01/06/2020 3:04 PM Note Text: CARE MANAGEMENT PROGRESS NOTE SERVICE DATE: 01/06/2020 SERVICE TIME: 0900 LOS: 3 days IMM Follow Up Copy Given: Yes(verbal reminder) Copy given to:: Patient Method: By Phone(covid protocol) SIGNATURE: Olga Phillips Cate PATIENT NAME: Ortiz Jacobs DATE: January 06, 2020 TIME: 3:04 PM PAGER/CONTACT #: [phone] Normal [facility] CT BRAIN WO IVCONon 01-06-20 CT BRAIN WO IVCON * * *Final Report* * * DATE OF EXAM: Jan 06 2020 6:11PM [facility] 0504 - CT BRAIN WO IVCON / PROCEDURE REASON: Encephalitis * * * * Physician Interpretation * * * * EXAMINATION: CT BRAIN WITHOUT IV CONTRAST CLINICAL HISTORY: Encephalitis. TECHNIQUE: Serial axial images without IV contrast were obtained from the vertex to the foramen magnum. MQ: [id number] CT Dose-Length Product (DLP): 791 mGy*cm CT Dose Reduction Employed: Iterative recon COMPARISON: CT brain 01/05/2020. RESULT: Post-operative change: Evidence of basilar tip artery aneurysm coiling is again noted.. Acute change: No evidence of an acute infarct or other acute parenchymal process. Hemorrhage: No evidence of acute intracranial hemorrhage. Mass Lesion / Mass Effect: There is no evidence of an intracranial mass or extraaxial fluid collection. No significant mass effect. There has been resolution of cerebral edema compared to yesterday's CT brain. Chronic change: None apparent. Parenchyma: There is no significant volume loss. The brain parenchyma is otherwise within normal limits for age. Ventricles: The ventricles are within normal limits of size and configuration for age. Paranasal sinuses and skull base: Minimal coastal thickening in the left maxillary sinus. The remaining visualized paranasal sinuses are grossly clear. The skull base and imaged soft tissues are unremarkable. IMPRESSION: 1. No evidence of acute cranial process. 2. Interval resolution of cerebral edema compared to yesterday's exam. Radio Station Engineer: BINTA Transcribe Date/Time: Jan 06 2020 6:15P Dictated by : CLEM OSBORNE MD This examination was interpreted and the report reviewed and electronically signed by: CLEM OSBORNE MD on Jan 06 2020 6:19PM EST Normal [facility] Cult and Smr Respiratoryon 0 01-06-2020 Cult and Smr Respiratory Test performed at [facility] Normal oropharyngeal bobo present. Many Gram positive cocci Few Gram positive bacilli Few Polymorphonuclear leukocytes Rare Squamous epithelial cells Normal [facility] Comment on above: Performed By: #### U RIN2 #### [facility] [address] [place] [address] Hemogram/Diffon 01-06-2020 Abs Immature Grans 0.11 thou/cmm High 0.00-0.05 [facility] Comment on above: Performed By: #### G FR #### [place] [address] Abs Neut (ANC) 9.43 thou/cmm High 1.56-6.13 [facility] Comment on above: Performed By: #### G FR #### [place] [address] Abs. Baso 0.01 thou/cmm Normal 0.01-0.08 [facility] Comment on above: Performed By: #### G FR #### [place] [address] Abs. [place] 0.66 thou/cmm Normal 0.27-0.70 [facility] Comment on above: Performed By: #### G FR #### [address] [address] Basophils/100 WBC (Bld) 0.1 % Normal A [facility] Comment on above: Performed By: #### G FR #### [facility] [address] [place], [place] [address] Eosinophils (Bld) [#/Vol] 0.00 thou/cmm Normal 0.00-0.31 [facility] Comment on above: Performed By: #### G FR #### [address] [address] Eosinophils/100 WBC (Bld) 0.0 % Normal [facility] Comment on above: Performed By: #### G FR #### [address] [place], [place] [address] Erythrocyte distribution width (RBC) [Ratio] 13.2 % Normal 11.7-14.4 [facility] Comment on above: Performed By: #### G FR #### [facility] [address] [place] [address] Hematocrit (Bld) [Volume fraction] 40.6 % Normal 34.1-44.9 [facility] Comment on above: Performed By: #### G FR #### [facility] [address] [place] [address] Hemoglobin (Bld) [Mass/Vol] 13.1 g/dL Normal 11.2-15.7 [facility] Comment on above: Performed By: #### G FR #### [facility] [address] [place] [address] Immature Grans 1.00 % Normal [facility] Comment on above: Performed By: #### G FR #### [facility] [address] [place] [address] Lymphocytes (Bld) [#/Vol] 1.15 thou/cmm Low 1.18-3.74 [facility] Comment on above: Performed By: #### G FR #### [facility] [address] [place] [address] Lymphocytes/100 WBC (Bld) 10.1 % Normal [facility] Comment on above: Performed By: #### G FR #### [facility] [address] [place] [address] MCH (RBC) [Entitic mass] 32.3 pg High 25.6-32.2 [facility] Comment on above: Performed By: #### G FR #### [facility] [address] [place] [address] MCHC (RBC) [Mass/Vol] 32.3 % Normal 31.6-34.8 [facility] Comment on above: Performed By: #### G FR #### [place] [address] MCV (RBC) [Entitic vol] 100.2 fL High 79.4-94.8 [facility] Comment on above: Performed By: #### G FR #### [facility] [address] [place] [address] Monocytes/100 WBC (Bld) 5.8 % Normal A [facility] Comment on above: Performed By: #### G FR #### [facility] [address] [place] [address] Platelet mean volume (Bld) [Entitic vol] 9.8 fL Normal 9.4-12.3 [facility] Comment on above: Performed By: #### G FR #### [facility] [address] [place] [address] Platelets (Bld) [#/Vol] 257 thou/cmm Normal 182-369 [facility] Comment on above: Performed By: #### G FR #### [facility] [address] [place] [address] RBC (Bld) [#/Vol] 4.05 mil/cmm Normal 3.93-5.22 [facility] Comment on above: Performed By: #### G FR #### [facility] [address] [place] [address] RDW SD 49.1 fl High 36.4-46.3 [facility] Comment on above: Performed By: #### G FR #### [facility] [address] [place] [address] Seg Neutrophil 83.0 % Normal [facility] Comment on above: Performed By: #### G FR #### [facility] [address] [place] [address] WBC (Bld) [#/Vol] 11.36 thou/cmm High 3.98-10.04 [facility] Comment on above: Performed By: #### G FR #### [facility] [address] [place] [address] Hepatic Function Panelon Albumin [Mass/Vol] 3.4 g/dL Low 3.9-4.9 [facility] Comment on above: Performed By: #### G FR #### [facility] [address] [place], [place] [address] ALP [Catalytic activity/Vol] 102 U/L Normal 34-123 [facility] Comment on above: Performed By: #### G FR #### [facility] [address] [place], [place] [address] ALT [Catalytic activity/Vol] 23 U/L Normal 7-38 [facility] Comment on above: Performed By: #### G FR #### [facility] [address] [place], [place] [address] AST [Catalytic activity/Vol] 19 U/L Normal 13-35 [facility] Comment on above: Performed By: #### G FR #### [facility] [address] [place], [place] [address] Bilirubin [Mass/Vol] mg/dL Normal 0.0-0.2 [facility] Comment on above: Performed By: #### G FR #### [facility] [address] [place], [place] [address] Bilirubin [Mass/Vol] 0.2 mg/dL Normal 0.2-1.3 [facility] Comment on above: Performed By: #### G FR #### [facility] [address] [place], [place] [address] Protein [Mass/Vol] 5.4 g/dL Low 6.3-8.0 [facility] Comment on above: Performed By: #### G FR #### [facility] [address] [place], [place] [address] IR BLOOD PATCH INJon 05-15-2 020 IR BLOOD PATCH INJ * * *Final Report* * * DATE OF EXAM: Jan 06 2020 3:26PM [facility] 2442 - IR BLOOD PATCH INJ / PROCEDURE REASON: headache * * * * Physician Interpretation * * * * EXAM TITLE: FLUOROSCOPICALLY GUIDED LUMBAR EPIDURAL BLOOD PATCH INJECTION DATE: January 06, 2020 at 2:34 PM COMPARISON: None. CLINICAL INDICATION/HISTORY: The patient is a 49-year-old female with spinal headache. The patient has intracranial hypotension and has also had recent myelogram. TECHNIQUE: Informed consent was obtained from the patient. The patient was placed in a prone position. The lumbar region was prepped and draped. With fluoroscopic guidance an appropriate skin entry site was identified and anesthetized. A 22-gauge spinal needle was guided into the epidural space at the L3-4 level. Contrast was injected to confirm the epidural location of the needle tip. 12 cc of the patient's clotted blood was infused into the epidural space. There were no apparent complications. 0 minute and 54 seconds of fluoroscopy time was utilized during the procedure. One spot film was obtained. 1 cc of Omnipaque 300 was utilized for the study. Fluoroscopy Radiation dose: Integrated dose-area product (DAP) for this visit = 12 mGy*cm. FINDINGS: Preprocedure pain was 10 out of 10. Post procedure pain was 7-8 out of 10. IMPRESSION: Technically successful fluoroscopy guided epidural blood patch injection for pain management of spinal headache. Radio Station Engineer: PSCB Transcribe Date/Time: Jan 06 2020 4:05P Dictated by : ERIKA GOINS MD This examination was interpreted and the report reviewed and electronically signed by: ERIKA GOINS MD on Jan 06 2020 4:07PM EST Normal [facility] Lipid Profile, Basicon 01-05 Cholesterol [Mass/Vol] 158 mg/dL Normal 0-199 [facility] Comment on above: Result Comment: Tota l Cholesterol < 200 mg/dL, Desirable Total Cholesterol 200 to 239 mg/dL, Borderline high Total Cholesterol > 239 mg/dL, High Performed By: #### U RIN2 #### [address] [address] Cholesterol in HDL [Mass/Vol] 52 mg/dL Normal [facility] Comment on above: Result Comment: Refe rence Range: HDL Cholesterol 40- 59 mg/dL, Acceptable HDL Cholesterol >59 mg/dL, High; Negative risk factor for coronary heart disease HDL Cholesterol <40 mg/dL, Low; Positive risk factor for coronary heart disease Performed By: #### U RIN2 #### [facility] [address] [place], [place] [address] Cholesterol in LDL [Mass/Vol] 88 mg/dL Normal 0-99 [facility] Comment on above: Result Comment: LDL Cholesterol < 100 mg/dL, Optimal LDL Cholesterol 100 to 129 mg/dL, Near optimal/above optimal LDL Cholesterol 130 to 159 mg/dL, Borderline high LDL Cholesterol 160 to 189 mg/dL, High LDL Cholesterol > 189 mg/dL, Very high Secondary prevention optimal LDL Cholesterol levels are recommended to be < 70 mg/dL Performed By: #### U RIN2 #### [facility] [address] [place] [address] Cholesterol in LDL/Cholesterol in HDL [Mass ratio] 1.69 Normal 0.00-2.53 [facility] Comment on above: Performed By: #### U RIN2 #### [facility] [address] [place] [address] Cholesterol.total/Aida sterol in HDL [Mass ratio] 3.04 {ratio} Normal 0.00-5.09 [facility] Comment on above: Performed By: #### U RIN2 #### [place] [address] Non-HDL Cholesterol 106 mg/dL Normal 0-129 [facility] Comment on above: Result Comment: Non HDL Cholesterol < 130 mg/dL, Optimal Non HDL Cholesterol 130 to 159 mg/dL, Near optimal/above optimal Non HDL Cholesterol 160 to 189 mg/dL, Borderline high Non HDL Cholesterol 190 to 219 mg/dL, High Non HDL Cholesterol > 219 mg/dL, Very high Secondary prevention optimal non HDL Cholesterol levels are recommended to be < 100 mg/dL Performed By: #### U RIN2 #### [place] [address] Triglyceride Blood 91 mg/dL Normal 0-149 [facility] Comment on above: Result Comment: Trig lycerides < 150 mg/dL, Normal Triglycerides 150 to 199 mg/dL, Borderline high Triglycerides 200 to 499 mg/dL, High Triglycerides > 499 mg/dL, Very high Performed By: #### U RIN2 #### [facility] [address] [place] [address] VLDL Cholesterol 18 mg/dL Normal 0-29 [facility] Comment on above: Performed By: #### U RIN2 #### [facility] [address] [place] [address] Magnesium Bloodon 01-06-2020 Magnesium [Mass/Vol] 2.2 mg/dL Normal 1.7-2.3 [facility] Comment on above: Performed By: #### G FR #### [place] [address] Osmolality Serumon 0 Osmolality [Osmolality] 298 mOsm/kg Normal 276-298 [facility] Comment on above: Performed By: #### U RIN2 #### [facility] [address] [place] [address] Osmolality [Osmolality] 298 mOsm/kg Normal 276-298 [facility] Comment on above: Performed By: #### U RIN2 #### [facility] [address] [place] [address] Osmolality [Osmolality] 303 mOsm/kg High 276-298 [facility] Comment on above: Performed By: #### G FR #### [facility] [address] [place] [address] PLAN OF CAREon 01-06-2020 PLAN OF CARE HNO ID: [id number] Author: Halle Arredondo Service: Neurology ICU Author Type: Nurse Practitioner Type: Plan of Care Filed: 01/06/2020 6:01 PM Note Text: Pt back from blood patch. She reports she is feeling better. She has been sitting up slightly. She reports LOAIZA tolerable but getting worse the longer her head is up. She is put back in supine position. C/o localized pain to broken tooth. Lidocaine making her nauseous. Will try orajel. Still c/o of cramps to LEs. Improved with valium but still present. Pt preparing to go for CTH. Normal [facility] PLAN OF CARE HNO ID: [id number] Author: Michelle Talavera Service: Neurology ICU Author Type: Nurse Practitioner Type: Plan of Care Filed: 01/06/2020 6:13 AM Note Text: Repeat caffeine infusion over 2 hours (second dose) due to ongoing symptoms. Normal [facility] PROGRESSon 01-06-2020 PROGRESS HNO ID: [id number] Author: Janeth Valderrama Service: Pain Management Author Type: Physician Type: Progress Notes Filed: 01/06/2020 11:02 AM Note Text: Name: ORTIZ JACOBS Age: [age] year old PAIN MANAGEMENT: Back Pain Pain Description: Patient complains of headache and hurting on her right side. Ongoing sensation spasms and knots right lower extremity. Less nausea; improving strength left side 24H Pain Regimen: Decadron 4 mg IV ?4 Valium 5mg IV x 2 Fentanyl 50mcg IV x 4 Flexeril 5mg x 1- discontinued Gabapentin 300 mg ?2- discontinued Lidoderm patch Caffeine 500mg x 2 Interval HPI: Events yesterday noted; neurology consult for mental status change and left facial droop; LUE weakness. CT brain with cerebral edema with cerebellar tonsillar herniation. Patient given mannitol. This morning patient had recurrent episode of left facial droop, left arm and leg weakness and paresthesias. Mannitol given again; repeat caffeine. 01/02 CT Myelogram L3?for small posterior central disc extrusion with caudal migration causing moderate narrowing of thecal sac left greater than right neural foraminal narrowing. Postop changes L4-S1. Thoracic spine T10-T11 small right paracentral disc protrusion Cervical spine mild multilevel cervical degenerative disc disease. Postsurgical changes at C6-C7 Subjective HPI: 49-year-old female with history of seizures, prior L4-S1 fusion in 2015 at [facility], prior C6-C7 fusion 2006, basilar artery aneurysm status post coiling 2011, stroke 2010 and GERD, gastroparesis status post gastric pacemaker presented 01/02 from [place] transfer with intractable back pain, urinary retention and severe bilateral lower extremity pain and spasm. Patient is followed by Dr. Robledo in [place] for pain management; last SI joint injection 12/28. CT myelogram pending; patient unable to have MRI due to gastric pacemaker. Of note, patient was hospitalized twice October, at [facility] for L3-L4 and T10-T11 disc herniation with radiculopathy. Outpatient PT, Decadron therapy and spine follow-up recommended. She re-presented with left arm numbness and facial droop; imaging negative for acute stroke. Symptoms felt to be secondary to migraine. In review of records during that hospitalization, there is concern for suspicious drug-seeking behavior as documented in the chart (including requesting opiate prescription at discharge despite recent filling prescription Percocet No. 100, and requesting IV opiates) Patient lives alone. She denies tobacco, alcohol or illicit meds. Home pain regimen includes gabapentin 300 mg 3 times daily. She no longer takes daily opiates. She previously had been on long-acting opiates last year. 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 11/11/2019 Gabapentin 300 MG Capsule 90.00 30 Eu Pet [id number] [id number] [place] 09/26/2019 2 09/25/2019 Oxycodone-Acetaminophen 5-325 12.00 3 Al Abby [id number] [id number] 0 30.00 [place] 09/19/2019 2 09/19/2019 Oxycodone-Acetaminophen 5-325 15.00 3 Do Kol [id number] [id number] 0 37.50 [place] 08/31/2019 2 08/31/2019 Gabapentin 300 MG Capsule 90.00 30 Ay Bas [id number] [id number] [place] 07/15/2019 2 07/15/2019 Gabapentin 300 MG Capsule 90.00 30 Ay Bas [id number] [id number] [place] 06/03/2019 2 05/30/2019 Diazepam 5 MG Tablet 10.00 4 To Le [id number] [facility] ([id number] 0 1.25 [place]ME [place] 06/03/2019 2 05/30/2019 Oxycodone-Acetaminophen 5-325 12.00 3 To Le [id number] [facility] ([id number] 0 30.00 [place] 06/03/2019 2 06/03/2019 Gabapentin 300 MG Capsule 60.00 20 Je B [id number] [facility] ([id number] 0 Medicare Current Facility-Administered Medications Medication Dose Route Frequency Provider Last Rate Last Dose - magnesium sulfate in water 2 g in sterile water 50 ml 2 g INTRAVENOUS ONCE Kelly (Res) Oannabellaaku, DO - valproate sodium 500 mg in NaCl 0.9% 100 mL (DEPACON) 500 mg INTRAVENOUS q 8 H Kelly (Res) Ojiaku, DO - prochlorperazine 10 mg injection (COMPAZINE) 10 mg INTRAVENOUS ONCE Kelly (Res) Oannabellaaku, DO - diazePAM 5 mg injection (VALIUM) 5 mg INTRAVENOUS q 6 H PRN Kelly (Res) Ojiaku, DO 5 mg at 01/06/20 1047 - [START ON 2020] pantoprazole 40 mg injection (PROTONIX) 40 mg INTRAVENOUS DAILY (6 AM) Kelly (Res) Oannabellaaku, DO - perflutren lipid microspheres 1.1 mg/mL 1.3 mL injection (DEFINITY) 1.3 mL INTRAVENOUS DIRECTED PRN Allyssa (Lilian) Samson - ipratropium-albuterol 3 mL nebulizer solution (DUONEB) 3 mL INHALATION QID Allyssa (Lilian) Samson 3 mL at 01/06/20 0734 - iv contrast (radiology procedure) INTRAVENOUS DIRECTED PRN Allyssa (Lilian) Samson - potassium chloride ER 20-40 mEq tab(s) (K-DUR, KLOR-CON) 20-40 mEq ORAL/FEEDING TUBE PRN Allyssa (Lilian) Samson Or - potassium chloride iv piggyback 20 mEq/100 mL 20 mEq INTRAVENOUS PRN Allyssa (Lilian) Samson - magnesium sulfate in water 2 g in sterile water 50 ml 2 g INTRAVENOUS PRN Allyssa (Lilian) Samson - sodium phosphate 45 mmol in NaCl 0.9% 250 mL 45 mmol INTRAVENOUS PRN Allyssa (Lilian) Samson - calcium gluconate 4 g in NaCl 0.9% 250 mL 4 g INTRAVENOUS PRN Allyssa (Lilian) Samson - sodium chloride-sodium acetate (50:50) iv infusion 3% (HYPERTONIC) INTRAVENOUS CONTINUOUS Allyssa (Lilian) Samson 75 mL/hr at 01/06/20 0820 - levETIRAcetam iv piggyback 1,500 mg in NaCl (iso-osmotic) 100 mL (KEPPRA) 1,500 mg INTRAVENOUS BID Allyssa (Lilian) Samson 400 mL/hr at 01/06/20 0820 1,500 mg at 01/06/20 0820 - ondansetron 4 mg tab(s) (ZOFRAN) 4 mg ORAL/FEEDING TUBE q 6 H PRN Allyssa (Lilian) Samson Or - ondansetron (PF) 4 mg injection (ZOFRAN) 4 mg INTRAVENOUS q 6 H PRN Allyssa (Lilian) Samson 4 mg at 01/06/20 0855 - insulin lispro pen (rapid acting) (HumaLOG KWIKPEN) SUBCUTANEOUS q 6 H Allyssa (Lilian) Samson - fentaNYL 50 mcg/mL 25-50 mcg injection (SUBLIMAZE) 25-50 mcg INTRAVENOUS q 1 H PRN Halle (Rn Integrated) Staudt 50 mcg at 01/06/20 0855 - sodium chloride 0.65 % 2 [place] (AYR, OCEAN) 2 [place] EACH NOSTRIL PRN Allyssa (Pa) Samson - NaCl 0.9% 3-5 mL 3-5 mL INTRAVENOUS q 12 H Allyssa (Pa) Samson 5 mL at 01/06/20 0821 - dexamethasone sodium phosphate 4 mg injection (DECADRON) 4 mg INTRAVENOUS q 6 H Allyssa (Pa) Samson 4 mg at 01/06/20 0625 - dextrose 40 % 15 g 15 g ORAL PRN Allyssa (Lilian) Samson Or - glucagon 1 mg injection (GLUCAGEN) 1 mg INTRAMUSCULAR PRN Allyssa (Pa) Samson Or - dextrose 50% in water 25 mL syringe 12.5 g INTRAVENOUS PRN Allyssa (Pa) Samson - albuterol 2.5 mg /3 mL (0.083 %) 2.5 mg (PROVENTIL) 2.5 mg INHALATION q 6 H PRN Allyssa (Lilian) Samson 2.5 mg at 01/05/20 1355 - lidocaine 4 % 1 Patch (SALONPAS) 1 Patch TRANSDERMAL DAILY Allyssa (Lilian) Samson 1 Patch at 01/05/20 0843 And - lidocaine patch - REMOVE OTHER AT BEDTIME Allyssa (Lilian) Samson And - lidocaine - VERIFY PATCH OTHER q 8 H Allyssa (Lilian) Samson gabapentin (NEURONTIN) 300 mg capsule, Take 300 mg by mouth three times daily., Disp: , Rfl: fluticasone-salmeterol (ADVAIR DISKUS) 250-50 mcg/dose, Inhale 1 Puff as instructed twice daily., Disp: , Rfl: Multivitamins-Minerals- Lutein (MULTIVITAMIN 50 PLUS) tab, Take 1 tablet by mouth once daily., Disp: , Rfl: levETIRAcetam (KEPPRA) 250 mg tablet, Take 1,500 mg by mouth twice daily. , Disp: , Rfl: , 01/02/2020 at Unknown time melatonin 10 mg tab, Take 10 mg by mouth daily at bedtime., Disp: , Rfl: , 01/02/2020 at Unknown time ALBUTEROL INHALATION, Inhale as instructed twice daily., Disp: , Rfl: , 01/02/2020 at Unknown time fluticasone propionate (FLONASE ALLERGY RELIEF NASAL), Use 1 [place] in the nose twice daily. , Disp: , Rfl: , 01/02/2020 at Unknown time omeprazole (PRILOSEC) 20 mg ORAL capsule, Take 40 mg by mouth once daily. , Disp: , Rfl: 0, 01/02/2020 at Unknown time Social History Tobacco Use - Smoking status: Current Every Day Smoker Packs/day: 0.50 Years: 10.00 Pack years: 5.00 Types: Cigarettes Substance Use Topics - Alcohol use: Yes Comment: Occassionally - Drug use: No FAMILY HISTORY Problem Relation Age of Onset - Arthritis Father - Coronary Artery Disease Father - Hypertension Father - Lipids Father - Arthritis Mother - Diabetes Mother - Hypertension Mother - Psychiatry Brother bipolar - Cancer Sister - Headache Sister - Psychiatry Sister bipolar No past surgical history on file. ROS: All of the following reviewed and negative except as noted below: GENERAL: no fever, chills, sweats, weight loss,+ fatigue, generalized weakness HEENT: no headache, vision changes, eye discomfort, hearing change, ear discomfort, sinus pain, nasal discharge or congestion, oral lesions, soreness, dental problem NECK: no adenopathy, discomfort, change in ROM CHEST: no shortness of breath, dyspnea on exertion, wheezing, cough, sputum production or chest pain HEART: no chest pain, palpitations, syncope ABDOMEN: no nausea, vomiting, constipation, diarrhea, abdominal pain : no dysuria, urgency, frequency, history of stones, incontinence NEURO: no confusion or alteration in consciousness, slurred speech, seizure, see HPI EXTREMITIES: no new pain, edema, change in ROM HEME: no new adenopathy, bruises, petechiae PSYCH: no depression, anxiety, agitation PAIN PSYCHIATRIC EXAM: GENERAL: alert, oriented to person, place, time JUDGMENT AND INSIGHT: intact APPEARANCE: neatly groomed DEMEANOR: coooperative, not hostile, mistrustful, preoccupied, or demanding ACTIVITY: normal, not hyperactive or hypoactive, no tremors, tics EYE CONTACT: normal SPEECH: normal, rate, volume, articulation, coherence, spontaneity MOOD: anxious IDEATION: deferred MEMORY: intact PHYSICAL EXAMINATION: GENERAL: well nourished and developed; anxious; alert and oriented x 3; intact judgement and insight; trendelenberg HEENT: no evidence of trauma; cranial nerves intact; eyes clear EOMI; no hearing deficits apparent; nasal passages unremarkable; throat and mucous membranes clear NECK: supple without lymphadenopathy; no JVD; no thyromegaly CHEST: clear bilaterally to auscultation; normal chest movement; no rales or rhonchi HEART: regular rate and rhythm, normal S1 and S2, no murmurs, clicks, rubs, or gallops ABDOMEN: soft; nondistended; bowel sounds present; no hepatomegaly; no splenomegaly; no tenderness EXTREMITIES: no evidence of clubbing; no cyanosis; no deformity; no joint effusion; no edema NEURO: no confusion; no tremor; sensorium normal; mild weakness LUE/LLE SKIN: no rash; no skin breakdown; no decubitus lesions HEME: no bruising; no adenopathy PSYCH: no evidence of depression; + anxiety; no agitation; no apparent hallucinations BP (!) 113/49 Pulse 64 Temp 36.6 ?C (97.9 ?F) Resp 14 Ht 175.3 cm (5' 9) Wt 102.7 kg (226 lb 6.4 oz) SpO2 98% BMI 33.43 kg/m? BMI 33.43 kg/(m2) Date 01/02/20 07 - 01/03/20 0659(Not Admitted) 01/03/20 07 - 01/04/20 0659 Shift 4623-8448 5214-4664 0030-5627 24 Hour Total 7118-7594 1299-8073 4951-1152 24 Hour Total INTAKE Shift Total OUTPUT Urine 1300 1300 Output ( Indwelling Urinary Catheter 01/03/20 0325 Admission to [facility] 16 Fr) 1300 1300 Shift Total 1300 1300 Weight (kg) 100.2 100.2 100.2 100.2 100.2 100.2 ABNORMAL/NEW FINDINGS: NONE RADIOLOGY/DIAGNOSTICS: LABORATORY: CBC: Recent Labs 01/06/20 0420 WBC 11.36* RBC 4.05 HB 13.1 HCT 40.6 PLT 257 MCV 100.2* MCH 32.3* MPV 9.8 RDW 13.2 CMP: Recent Labs 01/06/20 0420 NA 140 K 4.4 CHLOR 104 CO2 26 BUN 15 CREAT 0.71 GLUC 105* TPROT 5.4* CA 7.9* MG 2.2 TBILI 0.2 ALKPHOS 102 ALT 23 AST 19 ANION 10 Heme: No results for input(s): RETICP, ABSRETIC, LD, RADHA, FE, TIBC, TRANSFERSAT in the last 24 hours. 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 No surgical intervention needed per NS On 01/04 pt developed dysphagia, left facial droop and left side weakness; CTH + cerebral edema- possible result of CSF leak after myelogram per chart. Pt transferred to NSICU; given Mannitol and caffeine. Repeat CTH pending C/o severe LOAIZA with some nausea. 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 Robledo in [place] after discharge Janeth Valderrama MD [facility] PROGRESS HNO ID: [id number] Author: Sonia Acosta) LILIAN Barros Service: Neurosurgery Author Type: Physician Paper Twister Type: Progress Notes Filed: 01/06/2020 10:24 AM Note Text: Neurosurgery Progress Note SERVICE DATE: 01/06/2020 SUBJECTIVE: Pt awake and alert. C/o severe headache. Some nausea which had been much worse overnight with emesis. Feels her speech is improved and her lue/lle are improving. Did not sleep well last night. C/o right groin pain from vascular access. OBJECTIVE: Vitals: Temp (24hrs), Av.8 ?C (98.3 ?F), Min:36.6 ?C (97.9 ?F), Max:37.1 ?C (98.8 ?F) BP (!) 113/49 Pulse 64 Temp 36.6 ?C (97.9 ?F) Resp 14 Ht 175.3 cm (5' 9) Wt 102.7 kg (226 lb 6.4 oz) SpO2 98% BMI 33.43 kg/m? O2 Therapy: Nasal Cannula IANDO: Date 01/05/20699 - 01/06/2065801/06/20699 - 01/07/20 0659 Shift 9900-8106 8933-1128 1016-5213 24 Hour Total 4980-5801 2147-0920 2080-6282 24 Hour Total INTAKE IV 3125 1220 4345 Volume (mL) (sodium chloride iv bolus 3% (HYPERTONIC)) 300 300 Volume (mL) (NaCl 0.9% 1,000 mL iv bolus) 1000 1000 Volume (mL) (sodium chloride-sodium acetate (50:50) iv infusion 3% (HYPERTONIC)) 382 209 3213 Volume (mL) (mannitol 20% 100 g infusion (OSMITROL)) 500 500 Volume (mL) (caffeine-sodium benzoate 500 mg in NaCl 0.9% 1,000 mL) 1000 1000 Volume (mL) (levETIRAcetam iv piggyback 1,500 mg in NaCl (iso-osmotic) 100 mL (KEPPRA)) 100 100 Volume (mL) (mannitol 20% 50 g infusion (OSMITROL)) 250 250 Irrigants 250 250 Irrigant/Flush Amount In ([REMOVED] Indwelling Urinary Catheter 01/03/20 0325 Admission to [facility] 16 Fr 01/05/20 1051) 250 250 Shift Total 250 3125 1220 4595 OUTPUT Urine 700 1929 1100 3730 Void (ml) 300 300 Urine Not Saved. 1 x 1 x Output ([REMOVED] Indwelling Urinary Catheter 01/03/20 0325 Admission to [facility] 16 Fr 01/05/20 1051) 400 400 Output ( Indwelling Urinary Catheter 01/05/20 1544 Assessment [facility] 16 Fr) 1930 1100 3030 # of BMs Number of BMs 1 x 1 x Shift Total 700 1930 1100 3730 Weight (kg) 102.7 102.7 102.7 102.7 102.7 102.7 102.7 102.7 MEDICATIONS Current Facility-Administered Medications Medication Dose Route Frequency - caffeine-sodium benzoate 500 mg in NaCl 0.9% 1,000 mL 500 mg INTRAVENOUS ONCE - perflutren lipid microspheres 1.1 mg/mL 1.3 mL injection (DEFINITY) 1.3 mL INTRAVENOUS DIRECTED PRN - ipratropium-albuterol 3 mL nebulizer solution (DUONEB) 3 mL INHALATION QID - iv contrast (radiology procedure) INTRAVENOUS DIRECTED PRN - potassium chloride ER 20-40 mEq tab(s) (K-DUR, KLOR-CON) 20-40 mEq ORAL/FEEDING TUBE PRN Or - potassium chloride iv piggyback 20 mEq/100 mL 20 mEq INTRAVENOUS PRN - magnesium sulfate in water 2 g in sterile water 50 ml 2 g INTRAVENOUS PRN - sodium phosphate 45 mmol in NaCl 0.9% 250 mL 45 mmol INTRAVENOUS PRN - calcium gluconate 4 g in NaCl 0.9% 250 mL 4 g INTRAVENOUS PRN - sodium chloride-sodium acetate (50:50) iv infusion 3% (HYPERTONIC) INTRAVENOUS CONTINUOUS - levETIRAcetam iv piggyback 1,500 mg in NaCl (iso-osmotic) 100 mL (KEPPRA) 1,500 mg INTRAVENOUS BID - gabapentin 300 mg cap(s) (NEURONTIN) 300 mg ORAL/FEEDING TUBE TID - magnesium oxide 400 mg tab(s) (MAG-OX) 400 mg ORAL/FEEDING TUBE BID - melatonin 9 mg tab(s) 9 mg ORAL/FEEDING TUBE AT BEDTIME - senna-docusate 8.6-50 mg 2 tablet (SENNA-S) 2 tablet ORAL/FEEDING TUBE BID - cyclobenzaprine 5 mg tab(s) (FLEXERIL) 5 mg ORAL/FEEDING TUBE TID PRN - ondansetron 4 mg tab(s) (ZOFRAN) 4 mg ORAL/FEEDING TUBE q 6 H PRN Or - ondansetron (PF) 4 mg injection (ZOFRAN) 4 mg INTRAVENOUS q 6 H PRN - oxyCODONE IR 5-10 mg tab(s) (ROXICODONE) 5-10 mg ORAL/FEEDING TUBE q 4 H PRN - polyethylene glycol 3350 17 g packet (MIRALAX, GLYCOLAX) 17 g ORAL/FEEDING TUBE DAILY PRN - insulin lispro pen (rapid acting) (HumaLOG KWIKPEN) SUBCUTANEOUS q 6 H - lactulose 20 g CUP (DUPHALAC, CONSTULOSE) 20 g ORAL/FEEDING TUBE TID - fentaNYL 50 mcg/mL 25-50 mcg injection (SUBLIMAZE) 25-50 mcg INTRAVENOUS q 1 H PRN - diazePAM 5 mg injection (VALIUM) 5 mg INTRAVENOUS q 6 H PRN - sodium chloride 0.65 % 2 [place]enton (AYR, OCEAN) 2 [place]enton EACH NOSTRIL PRN - NaCl 0.9% 3-5 mL 3-5 mL INTRAVENOUS q 12 H - dexamethasone sodium phosphate 4 mg injection (DECADRON) 4 mg INTRAVENOUS q 6 H - pantoprazole DR 40 mg tab(s) (PROTONIX) 40 mg ORAL DAILY (6 AM) - dextrose 40 % 15 g 15 g ORAL PRN Or - glucagon 1 mg injection (GLUCAGEN) 1 mg INTRAMUSCULAR PRN Or - dextrose 50% in water 25 mL syringe 12.5 g INTRAVENOUS PRN - albuterol 2.5 mg /3 mL (0.083 %) 2.5 mg (PROVENTIL) 2.5 mg INHALATION q 6 H PRN - lidocaine 4 % 1 Patch (SALONPAS) 1 Patch TRANSDERMAL DAILY And - lidocaine patch - REMOVE OTHER AT BEDTIME And - lidocaine - VERIFY PATCH OTHER q 8 H Labs: Recent Labs 01/06/20 0530 01/06/20 0420 01/05/20200401/05/20 1522 01/05/20 1520 NA -- 140 145* -- 130* K -- 4.4 4.2 -- 4.7 CHLOR -- 104 111* -- 95* CO2 -- 26 25 -- 24 BUN -- 15 17 -- 18 CREAT -- 0.71 0.84 -- 0.79 GLUC -- 105* 105* -- 103* ANION -- 10 9 -- 11 CA -- 7.9* 7.8* -- 8.0* MG -- 2.2 -- -- -- P -- 3.8 -- -- -- ALB -- 3.4* -- -- -- AST -- 19 -- -- -- ALT -- 23 -- -- -- ALKPHOS -- 102 -- -- -- TBILI -- 0.2 -- -- -- WBC -- 11.36* -- -- 11.20* HB -- 13.1 -- -- 14.7 HCT -- 40.6 -- -- 45.2* PLT -- 257 -- -- 301 LACT -- -- 1.3 -- 1.5 INR 0.95 -- -- -- -- PH -- -- -- 7.352 -- PCO2 -- -- -- 43.3 -- PO2 -- -- -- 81.8* -- BE -- -- -- -1.8 -- Exam: GENERAL: No distress, Alert, in trendelenburg position NEURO: orientedx3; speech clear and fluent; lue greatly improved/moving well but still with some weakness; lle stable/weak HEENT: normocephalic, atraumatic; perrl/eomi; left mouth droop significantly improved but still mildly present LUNGS: Unlabored breathing EXTREMITIES: No deformities ASSESSMENT AND PLAN: Active Hospital Problems Diagnosis Date Noted - Intracranial hypotension 01/06/2020 - Cerebral edema (HCC) 01/05/2020 Assessment AND Plan Note: 100 mannitol stat given during stroke team 01/04 Trendelenburg position at all times> aspiration precautions HTS @ 75cc NA goal 145-155 Repeat CTH today once more stable Developed focal weakness and numbness> Mannitol given - Urinary retention 01/05/2020 - Epilepsy (HCC) 01/05/2020 - Hyperglycemia 01/05/2020 - Compression of brainstem (HCC) 01/05/2020 - Brain compression (HCC) 01/05/2020 - Constipation 01/05/2020 - Severe back pain 01/03/2020 49 year old female acute onset cerebral edema/tonsillar descension - poss result of CSF leak post myelogram - neuro improving - h/a and nausea persistent - Fentanyl/Zofran/Oxy/Maddi ium - no plan for neurosurgical intervention - mgmt per NSICU SIGNATURE: LILIAN Rodríguez PATIENT NAME: Ortiz Jacobs DATE: January 06, 2020 TIME: 10:12 AM Pager: [phone] [facility] PROGRESS HNO ID: [id number] Author: Beverly Vora Service: Neurology ICU Author Type: Physician Type: Progress Notes Filed: 01/06/2020 4:13 PM Note Text: SERVICE DATE: 01/06/2020 SERVICE TIME: 0330 AM NEURO ICU PROGRESS NOTE DATE OF ADMISSION: 01/03/2020 Subjective Hospital Course: 01/04: arrived to NSICU from floor with intracranial hypotension. Left facial and LUE weakness. Transient episode of apnea that improved with Trandelenburg positioning and osmotherapy. CVP placed. 01/04 PM: spasms and pain to bilateral LE; nausea with emesis x1 > exam unchanged; pupils equal and reactive 01/05 episode of left facial droop, left arm and leg weakness and paraesthesia on left> Mannitol given Objective BP 135/109 Pulse 73 Temp 36.9 ?C (98.4 ?F) Resp 19 Ht 175.3 cm (5' 9) Wt 102.7 kg (226 lb 6.4 oz) SpO2 95% BMI 33.43 kg/m? Weight change: Neuro: Awake, oriented; PERRL, EOMI; Left facial droop with ptosis (mild); speech slow, mild dysarthria GCS: Eyes: 4. Spontaneous Verbal: 5: Oriented Motor: 6: Obeys Motor commands Total: 15 MOTOR STRENGTH: R UE/LE 5/5 L UE/LE; L UE/LE 4+/5 SENSATION: Diminished subjective to light touch on left hemibody COORDINATION: Not assessed CV: HRR Pulm: CTA even and unlabored on RA GI/: soft; NT/ND positive BS Skin/Extremities: Edema- No Peripheral pulses- Present all extremities Wounds/Drsgs- No Breakdown- No Diagnostic tests reviewed for today's visit: Most recent labs and imaging results. Lines, Drains, and Airways Line Peripheral 01/03/20 0325 Admission to Hospital Midline Right Antecubital 20 Gauge 3 days Central Line Triple Lumen 01/05/20 1600 Non-tunneled Right Groin less than 1 day Drain Indwelling Urinary Catheter 01/05/20 1544 Assessment Rodriguez 16 Fr less than 1 day ICU Checklist Last Documented/Reviewed time: 01/05/2020 5:14 PM ------ - ICU Delirium Status: CAM Negative - no action required Restraint Status: None ICU Mobility-Pt Has Been Out of Bed: No - Specify Line Status: Central multi-lumen catheter Central Line Status: Reason to maintain Central Line Reason to Maintain: Poor access, Other IV med administration Ventilator: None Rodriguez Status: Present, will maintain Rodriguez Status Details: Accurate measurement of urine output GI/Stress Ulcer Prophylaxis: None - not required Nutrition is at Goal: NPO VTE Prophylaxis: Chemoprophylaxis: No chemoprophylaxis No Chemoprophylaxis Reason: Bleeding risk Pressure Injury Status: None ICU plan of care visit at bedside in last 24 hours: Yes, Provider, RN, Patient/ designee ICU Disposition- Is Patient Clinically Ready to Transfer to [facility] or SDU?: No Discharge Planning: To be determined PERSONAL INVOLVEMENT IN CARE: Reviewing initiation, responses and adjustments to therapies, coordination of care, and updating family with Staff Physician, Dr. Vora. Assessment AND Plan 49 year old, female who was admitted for low back complaints, urinary retention with difficulty ambulating. S/P myelogram 01/02. Stroke team called 01/04 for left facial droop. CT brain attack performed noted cerebral edema with tonsillar herniation and transferred to NSICU. ? Active Hospital Problems as of 01/06/2020 Noted - Resolved Hospital Brain compression (HCC) 01/05/2020 - Present Cerebral edema (HCC) 01/05/2020 - Present Current Assessment AND Plan 100 mannitol stat given during stroke team 01/04 Trendelenburg position at all times HTS @ 75cc NA goal 145-155 Repeat CTH today once more stable Developed focal weakness and numbness> Mannitol given Compression of brainstem (HCC) 01/05/2020 - Present Constipation 01/05/2020 - Present Current Assessment AND Plan Lactulose Senna Epilepsy (HCC) 01/05/2020 - Present Current Assessment AND Plan Cont home keppra. Will change to IV for now. Seizure precautions No clinical events Hyperglycemia 01/05/2020 - Present Current Assessment AND Plan Hga1c 5.4 ISS Glucose checks q6h while NPO Intracranial hypotension 01/06/2020 - Present Current Assessment AND Plan PLAN: Treated with IV Caffeine earlier Severe back pain 01/03/2020 - Present Current Assessment AND Plan Had epidural injection performed december 27 then started to develop lower back pain with paraesthesias. Myelogram performed 01/02- no cauda equina, no surgery indicated Pain management following -gabapentin -oxy IR -decadron -lidoderm patch Urinary retention 01/05/2020 - Present Current Assessment AND Plan Rodriguez cath required Medication and Non-Pharmacologic VTE Prophylaxis/Anticoagula nts 01/04/20 0934 pneumatic compression stockings (il,oh) 01/03/20 0345 vte non-pharmacologic prophylaxis - none indicated (fl,oh) VTE Prophylaxis: Contraindicated possible OR need Plan of care discussed with: RN and Dr Vora SIGNATURE: Michelle Talavera APRN.ABRAHAN PATIENT NAME: Ortiz Jacobs DATE: January 06, 2020 TIME: 6:05 AM PAGER/CONTACT #: [phone] minutes of CCT Attending Note I have personally performed a face to face assessment of the patient and have reviewed the PA/AMUSEMENT RIDE OPERATOR note. The patient currently has the following hospital problems: Active Problems: Severe back pain Cerebral edema (HCC) Urinary retention Epilepsy (HCC) Hyperglycemia Compression of brainstem (HCC) Brain compression (HCC) Constipation Intracranial hypotension Resolved Problems: * No resolved hospital problems. * Plans for today: Intracranial hypotension, symptomatic. - Trandelenburg positioning with slow elevation (now at -5 degrees) every 4-6 hours as tolerated - IV caffeine; will also give IV VPA, compazine, and magnesium for headache - consult for blood patch - osmotherapy; sodium and sOsm q6h - hold DVT chemoprophylaxis in case LP/nsgy is needed - continue decadron - keep NPO while Trandelenburg; change meds to IV - pain and spasm control - Rodriguez for now - swish and spit for injured tooth (vomited in bathroom on RNF and injured tooth per her) - PICC line; d/c femoral Signature: Beverly Vora, Date: 01/06/2020 Time: 4:13 PM Normal [facility] Phosphorous Bloodon 01-06-20 20 Phosphate [Mass/Vol] 3.8 mg/dL Normal 2.7-4.8 [facility] Comment on above: Performed By: #### G FR #### [place] [address] Protimeon 01-06-2020 INR Coag (PPP) [Relative time] 0.95 {INR} Normal 0.90-1.30 [facility] Comment on above: Result Comment: Isaura min K Antagonist (VKA) Therapeutic Range: INR 2 to 3 (Target INR of 2.5) Note: For patients treated with VKA drugs, such as warfarin, the [place] [employer] 2012 Guideline recommends a therapeutic INR range of 2 to 3 (target INR of 2.5). This recommendation includes high-risk patients with antiphospholipid syndrome with previous arterial or venous thromboembolism, current-generation mechanical or bioprosthetic aortic heart valve replacement. Note: Patients with mechanical aortic valve replacement and additional risk factors for thromboembolic events (atrial fibrillation, previous thromboembolism, LV dysfunction, hypercoagulable conditions) or an older generation mechanical AVR (i.e., ball in-Cage) or any mechanical MVR should have a INR therapeutic range of 2.5 to 3.5 target INR of 3). Aye GH, et al. Chest 2012; 141:7S-47S Jose ARIAS et al. [facility] 2017; 70: 252-289 Performed By: #### U RIN2 #### [place] [address] PT Coag (PPP) [Time] 10.3 s Normal 9.7-13.0 [facility] Comment on above: Performed By: #### U RIN2 #### [place] [address] THERAPY NTon 01-06-2020 THERAPY NT HNO ID: [id number] Author: Kristen (Efrain-Investor Relations Coordinator) EFRAIN Thomas/PHILIPPE Service: Speech/Swallow Author Type: Speech Language Pathologist Type: Therapy (PT/OT/Speech/Resp) Filed: 01/06/2020 10:18 AM Note Text: SPEECH THERAPY MISSED VISIT SERVICE DATE: 01/06/2020 SERVICE TIME: 1017 to 1017 ROOM: [place] [address] Attempted Clinical Swallow Evaluation. Patient not seen due to Other: See Comment: RN and Dr. Vora asked to hold due to unable to tolerate sitting up at this point due to swelling in brain. Speech Therapy to re-attempt swallowing evaluation once able to at least tolerate 30 degrees. SIGNATURE: TANESHA Bird PATIENT NAME: Ortiz Jacobs DATE: January 06, 2020 TIME: 10:17 AM [facility] THERAPY NT HNO ID: [id number] Author: Elicia CerratoOtr/L) Brigid Service: Occupational Therapy Author Type: Occupational Therapist Type: Therapy (PT/OT/Speech/Resp) Filed: 01/06/2020 4:18 PM Note Text: OCCUPATIONAL THERAPY MISSED VISIT SERVICE DATE: 01/06/2020 SERVICE TIME: 1005 to 1005 ROOM: [place] [address] Attempted Evaluation. Patient not seen due to Illness(per RN, unable to tolerate sitting up at this time due to brain swelling ). SIGNATURE: Elicia Rainey OTR/L PATIENT NAME: Ortiz Jacobs DATE: January 06, 2020 TIME: 10:06 AM [facility] ALLIED HEALTHon 01-05-2020 ALLIED HEALTH HNO ID: [id number] Author: Ha (Student) Celso Yu Service: Spiritual Care Author Type: Student Type: Allied Health Filed: 01/05/2020 1:36 PM Note Text: SPIRITUALCARE Spiritual Care Visit- Brief Note Name: Ortiz Jacobs Date: January 05, 2020 Notes: Called room and spoke with patient. Prayed with patient. Spiritual care team is available as needed and discussed with patient how to contact us. Safety Leader Signature: Ha Yu To contact the Spiritual Care Department: Please call [phone] or Page the On-Call Safety Leader at pager [phone] Thank you for the opportunity to be of service. This is an electronically created document. IF PRINTED, PLEASE DO NOT REMOVE FROM THE CHART OR MODIFY PRINTED COPY. Normal [facility] ALLIED HEALTH HNO ID: [id number] Author: Vadim Baker (Rt) Service: Radiology Author Type: Grinding Wheel Dresser Type: Allied Health Filed: 01/05/2020 6:44 AM Note Text: Pt has non compatible gastric pacer per RN. MRI cancelled. Normal [facility] ALLIED HEALTH HNO ID: [id number] Author: Vadim Baker (Rt) Service: Radiology Author Type: Grinding Wheel Dresser Type: Allied Health Filed: 01/05/2020 6:41 AM Note Text: Called for MRI screening form. Normal [facility] Basic Metabolic Panelon 05-1 Anion gap [Moles/Vol] 9 mmol/L Normal 9-18 [facility] Comment on above: Performed By: #### G FR #### [facility] [address] [place], [place] [address] Calcium [Mass/Vol] 7.8 mg/dL Low 8.5-10.2 [facility] Comment on above: Performed By: #### G FR #### [facility] [address] [place], [place] [address] Chloride [Moles/Vol] 111 mmol/L High 97-105 [facility] Comment on above: Performed By: #### G FR #### [facility] [address] [place], [place] [address] CO2 Blood 25 mmol/L Normal 22-30 [facility] Comment on above: Performed By: #### G FR #### [facility] [address] [place], [place] [address] Creatinine [Mass/Vol] 0.84 mg/dL Normal 0.58-0.96 [facility] Comment on above: Performed By: #### G FR #### [facility] [address] [place], [place] [address] Glucose [Mass/Vol] 105 mg/dL High 74-99 [facility] Comment on above: Result Comment: The [place] [employer] (ADA) provides guidance for cutoff values for fasting glucose and random glucose. The ADA defines fasting as no caloric intake for at least 8 hours.Fasting plasma glucose results between 100 to 125 mg/dL indicate increased risk for diabetes (prediabetes). Fasting plasma glucose results greater than or equal to 126 mg/dL meet the criteria for diagnosis of diabetes. In the absence of unequivocal hyperglycemia, results should be confirmed by repeat testing. In a patient with classic symptoms of hyperglycemia or hyperglycemic crisis, random plasma glucose results greater than or equal to 200 mg/dL meet the criteria for diagnosis of diabetes. Reference: Standards of Medical Care in Diabetes 2016; [place] [employer]. Diabetes Care. 2016;39(Suppl 1). Performed By: #### G FR #### [facility] [address] [place], [place] [address] Potassium [Moles/Vol] 4.2 mmol/L Normal 3.7-5.1 [facility] Comment on above: Performed By: #### G FR #### [facility] [address] [place], [place] [address] Sodium [Moles/Vol] 145 mmol/L High 136-144 [facility] Comment on above: Performed By: #### G FR #### [facility] [address] [place], [place] [address] Urea nitrogen [Mass/Vol] 17 mg/dL Normal 7-21 [facility] Comment on above: Performed By: #### G FR #### [facility] [address] [place] [address] Anion gap [Moles/Vol] 11 mmol/L Normal 9-18 [facility] Comment on above: Performed By: #### C MP #### [facility] [address] [place], [place] [address] Calcium [Mass/Vol] 8.0 mg/dL Low 8.5-10.2 [facility] Comment on above: Performed By: #### C MP #### [facility] [address] [place], [place] [address] Chloride [Moles/Vol] 95 mmol/L Low 97-105 [facility] Comment on above: Performed By: #### C MP #### [facility] [address] [place] [address] CO2 Blood 24 mmol/L Normal 22-30 [facility] Comment on above: Performed By: #### C MP #### [facility] [address] [place], [place] [address] Creatinine [Mass/Vol] 0.79 mg/dL Normal 0.58-0.96 [facility] Comment on above: Performed By: #### C MP #### [facility] [address] [place] [address] Glucose [Mass/Vol] 103 mg/dL High 74-99 [facility] Comment on above: Result Comment: The [place] [employer] (ADA) provides guidance for cutoff values for fasting glucose and random glucose. The ADA defines fasting as no caloric intake for at least 8 hours.Fasting plasma glucose results between 100 to 125 mg/dL indicate increased risk for diabetes (prediabetes). Fasting plasma glucose results greater than or equal to 126 mg/dL meet the criteria for diagnosis of diabetes. In the absence of unequivocal hyperglycemia, results should be confirmed by repeat testing. In a patient with classic symptoms of hyperglycemia or hyperglycemic crisis, random plasma glucose results greater than or equal to 200 mg/dL meet the criteria for diagnosis of diabetes. Reference: Standards of Medical Care in Diabetes 2016; [place] [employer]. Diabetes Care. 2016;39(Suppl 1). Performed By: #### C MP #### [facility] [address] [place], [place] [address] Potassium [Moles/Vol] 4.7 mmol/L Normal 3.7-5.1 [facility] Comment on above: Performed By: #### C MP #### [address] [address] Sodium [Moles/Vol] 130 mmol/L Low 136-144 [facility] Comment on above: Performed By: #### C MP #### [address] [address] Urea nitrogen [Mass/Vol] 18 mg/dL Normal 7-21 [facility] Comment on above: Performed By: #### C MP #### [address] [address] Anion gap [Moles/Vol] 11 mmol/L Normal 9-18 [facility] Comment on above: Performed By: #### C BC1 #### [facility] [address] [place], [place] [address] Calcium [Mass/Vol] 9.1 mg/dL Normal 8.5-10.2 [facility] Comment on above: Performed By: #### C BC1 #### [facility] [address] [place], [place] [address] Chloride [Moles/Vol] 102 mmol/L Normal 97-105 [facility] Comment on above: Performed By: #### C BC1 #### [address], [place] [address] CO2 Blood 25 mmol/L Normal 22-30 [facility] Comment on above: Performed By: #### C BC1 #### [facility] [address] [place], [place] [address] Creatinine [Mass/Vol] 0.62 mg/dL Normal 0.58-0.96 [facility] Comment on above: Performed By: #### C BC1 #### [facility] [address] [place], [place] [address] Glucose [Mass/Vol] 154 mg/dL High 74-99 [facility] Comment on above: Result Comment: The [place] [employer] (ADA) provides guidance for cutoff values for fasting glucose and random glucose. The ADA defines fasting as no caloric intake for at least 8 hours.Fasting plasma glucose results between 100 to 125 mg/dL indicate increased risk for diabetes (prediabetes). Fasting plasma glucose results greater than or equal to 126 mg/dL meet the criteria for diagnosis of diabetes. In the absence of unequivocal hyperglycemia, results should be confirmed by repeat testing. In a patient with classic symptoms of hyperglycemia or hyperglycemic crisis, random plasma glucose results greater than or equal to 200 mg/dL meet the criteria for diagnosis of diabetes. Reference: Standards of Medical Care in Diabetes 2016; [place] [employer]. Diabetes Care. 2016;39(Suppl 1). Performed By: #### C BC1 #### [facility] [address] [place], [place] [address] Potassium [Moles/Vol] 4.7 mmol/L Normal 3.7-5.1 [facility] Comment on above: Performed By: #### C BC1 #### [facility] [address] [place], [place] [address] Sodium [Moles/Vol] 138 mmol/L Normal 136-144 [facility] Comment on above: Performed By: #### C BC1 #### [facility] [address] [place], [place] [address] Urea nitrogen [Mass/Vol] 15 mg/dL Normal 7-21 [facility] Comment on above: Performed By: #### C BC1 #### [facility] [address] [place], [place] [address] Blood Gas Arterialon 020 Base Excess -1.8 mmol/L Normal -3.0-3.0 [facility] Comment on above: Performed By: #### C MP #### [facility] [address] [place] [address] HCO3 (Bld) [Moles/Vol] 23.4 mmol/L Normal 21.0-28.0 [facility] Comment on above: Performed By: #### C MP #### [facility] [address] [place] [address] O2% Sat Arterial 95.3 % Low 96.0-100.0 [facility] Comment on above: Performed By: #### C MP #### [facility] [address] [place] [address] PCO2 Arterial 43.3 mm Hg Normal 35.0-45.0 [facility] Comment on above: Performed By: #### C MP #### [facility] [address] [place] [address] pH Arterial 7.352 Normal 7.350-7.450 [facility] Comment on above: Performed By: #### C MP #### [facility] [address] [place] [address] PO2 Arterial 81.8 mm Hg Low 83.0-108.0 [facility] Comment on above: Performed By: #### C MP #### [facility] [address] [place] [address] FIO2 21 % Normal [facility] Comment on above: Performed By: #### C MP #### [facility] [address] [place] [address] CONSULTon 01-05-2020 CONSULT HNO ID: [id number] Author: Leandra Joiner Jr. Service: Neurology ICU Author Type: Physician Type: Consults Filed: 01/05/2020 5:08 PM Note Text: Summary: stroke team INITIAL CONSULT NEURO STROKE SERVICE DATE: 01/05/2020 SERVICE TIME: 2:34 PM REQUESTING PHYSICIAN:stroke team PCP: Amandeep Loredo REASON FOR STROKE EVALUATION: Left hemiparesis with paraesthesia, left facial droop and dysarthria. Subjective HPI: Patient is a 49 year old female originally admitted for lower back pain with lower extremity weakness R>L who was last known well around [address] Horta evaluated her when she was choking on her salad. A Left facial droop was then noted and stroke team alerted. When looking further into her hx she has had multiple documented episodes of left sided weakness with left facial droop with a migraine lasting for days after. CT tia attack and CTA head and neck ordered. Stroke team conducted with Dr. Joiner. Pre-admission Was patient on antithrombotic agent prior to admission: No Was patient on lipid lowering agent prior to admission: No Pre-morbid mRS: Premorbid Modified Lombard Score: 1 - No significant disability despite symptoms - able to carry out all usual duties and activities PAST MEDICAL HISTORY Diagnosis Date - Back pain - Depression - Intracranial aneurysm - Sleep disorder - Smoking - Stomach cancer (HCC) 2009 - Stroke (HCC) 09/09/2010 Right Hemisphere - Uterine cancer (HCC) 2010 No past surgical history on file. Social History Tobacco Use - Smoking status: Current Every Day Smoker Packs/day: 0.50 Years: 10.00 Pack years: 5.00 Types: Cigarettes Substance Use Topics - Alcohol use: Yes Comment: Occassionally - Drug use: No FAMILY HISTORY Problem Relation Age of Onset - Arthritis Father - Coronary Artery Disease Father - Hypertension Father - Lipids Father - Arthritis Mother - Diabetes Mother - Hypertension Mother - Psychiatry Brother bipolar - Cancer Sister - Headache Sister - Psychiatry Sister bipolar ALLERGIES Allergen Reactions - Darvocet A500 [Prop* Shortness of Breath - Penicillins Swelling - Darvocet A500 [Prop* Unknown - Penicillins Unknown MEDICATION Pre-admission gabapentin (NEURONTIN) 300 mg capsule, Take 300 mg by mouth three times daily., Disp: , Rfl: fluticasone-salmeterol (ADVAIR DISKUS) 250-50 mcg/dose, Inhale 1 Puff as instructed twice daily., Disp: , Rfl: Multivitamins-Minerals- Lutein (MULTIVITAMIN 50 PLUS) tab, Take 1 tablet by mouth once daily., Disp: , Rfl: levETIRAcetam (KEPPRA) 250 mg tablet, Take 1,500 mg by mouth twice daily. , Disp: , Rfl: , 01/02/2020 at Unknown time melatonin 10 mg tab, Take 10 mg by mouth daily at bedtime., Disp: , Rfl: , 01/02/2020 at Unknown time ALBUTEROL INHALATION, Inhale as instructed twice daily., Disp: , Rfl: , 01/02/2020 at Unknown time fluticasone propionate (FLONASE ALLERGY RELIEF NASAL), Use 1 [place] in the nose twice daily. , Disp: , Rfl: , 01/02/2020 at Unknown time omeprazole (PRILOSEC) 20 mg ORAL capsule, Take 40 mg by mouth once daily. , Disp: , Rfl: 0, 01/02/2020 at Unknown time Current gabapentin (NEURONTIN) 300 mg capsule Take 300 mg by mouth three times daily. fluticasone-salmeterol (ADVAIR DISKUS) 250-50 mcg/dose Inhale 1 Puff as instructed twice daily. Multivitamins-Minerals- Lutein (MULTIVITAMIN 50 PLUS) tab Take 1 tablet by mouth once daily. levETIRAcetam (KEPPRA) 250 mg tablet Take 1,500 mg by mouth twice daily. melatonin 10 mg tab Take 10 mg by mouth daily at bedtime. ALBUTEROL INHALATION Inhale as instructed twice daily. fluticasone propionate (FLONASE ALLERGY RELIEF NASAL) Use 1 [place] in the nose twice daily. omeprazole (PRILOSEC) 20 mg ORAL capsule Take 40 mg by mouth once daily. REVIEW OF SYSTEMS patient unable to answer at this time due to dysarthria Objective PHYSICAL EXAM Vital Signs: BP 143/100 Pulse 90 Temp 36.6 ?C (97.9 ?F) (Oral) Resp 21 Ht 175.3 cm (5' 9) Wt 102.7 kg (226 lb 6.4 oz) SpO2 97% BMI 33.43 kg/m? GENERAL: Awake/easily arousable HEENT: Normocephalic/atraumati c RESPIRATORY: Normal respiratory effort. On 2L NC. CARDIOVASCULAR: RRR GI: Soft abdomen EXTREMITIES: No cyanosis, clubbing or edema. Good capillary refill. SKIN: Skin color, texture, turgor normal. No rashes or lesions. MUSCULOSKELETAL worsening of the right side recently. NEUROLOGICAL: LOC: 0 - alert and responsive 0 LOC Questions: 2 - none correct 2 LOC Commands: 1 - one correct 1 LOC Normal Gaze: 0 - normal gaze 0 Visual Matute: 2 - complete hemianopia 2 Facial Palsy: 2 - partial paralysis 2 Motor Left Arm: 2 - some antigravity effort but cannot sustain 2 Motor Right Arm: 1 - drift but does not hit bed 1 Motor Left Le - no antigravity effort but even minimal movements count 3 Motor Right Le - some antigravity effort but cannot sustain 2 Limb Ataxia: 1 - ataxia in upper or lower extremity 1 Sensory: 1 - mild to moderate unilateral loss but patient aware of touch (or aphasic, confused) 1 Language: 2 - severe aphasia (almost no information exchanged) 2 Dysarthria: 1 - mild-mod slurred 1 Extinction/Neglect: 0 - normal, none detected (or visual loss alone) 0 Initial NIHSS: 20 (01/05/20 1410 : Allyssa (Roosevelt Reyes) 20 MENTAL STATUS: Awake but dysarthric. She follows commands but limited. CRANIAL NERVES: PERRLA, EOM's intact and left facial droop, dysarthria, and left hemianopsia MOTOR:RUE unable to resist gravity but able to move. RLE with minimal movement but able to move. LUE able to unable to resist gravity but able to move. LLE with minimal movement but able to move SENSATION: Intact light touch COORDINATION: unable to perform due to weakness. GAIT: not tesetd DATA: Diagnostic tests reviewed for today's visit: Lipids, HbA1c, Recent Labs 01/04/20 0815 HBA1C 5.4 Most recent labs and imaging results. STROKE CARE PATH GARCIA [employer] Date Patient Last Known Well: 01/05/20 Time Patient Last Known Well: [address] Imaging Review: CT Imaging reviewed, NO acute infarct/hemorrhage seen CTA Imaging Review: CTA Imaging reviewed, NO large vessel occlusion or severe stenosis seen Candidate for Endovascular Therapy (Last Known Well within 24 hours): No - Negative for evidence of large vessel occlusion STROKE 9 CARE AND PREVENTION CHECKLIST 1. Is the patient currently on an ANTITHROMBOTIC medication (Antiplatelet or Anticoagulant): None Reason Antithrombotic not prescribed: Other - see comment(cereberal edema. will need LP) 2. Does the patient have known AFIB/FLUTTER: No 3. Is the patient on a STATIN: Atorvastatin 40 mg 4. Is the patient on VTE prophylaxis: Mechanical prophylaxis Mechanical intervention type: Intermittent compression stocking(s) 5. GLYCEMIC Control Medications: Not Diabetic 6. Stroke BP Goals: <180/105 Stroke BP Control: BP well controlled 7. Stroke IVF/Nutrition: NPO except med 8. TEMPERATURE Control: Normothermic 9. Does the patient need THERAPY: Yes Therapy involvement: PT;OT;ST Stroke Care and Prevention (personally reviewed by ALLYSSA REYES PA-C): Daily Rounding Date: 01/05/20 Daily Rounding Time: 1612 PROBLEM LIST: Active Problems: Severe back pain POA: Yes Resolved Problems: * No resolved hospital problems. * Impression/Recommendati ons Ortiz Jacobs is a 49 year old, female who was admitted for low back complaints with difficulty ambulating. She had myelogram two days ago ans NS with no plan for surgery. Today patient was witnessed choking on lettuce from lunch and then when seen by attending a left facial droop developed. CT brain attack performed noted cerebral edema and CTA reviewed by Dr. Joiner with no LVO. Patient transferred to NSICU and given 1mg/kg of mannitol STAT. To be staffed by Dr. Joiner. SIGNATURE: ALLYSSA REYES PA-C PATIENT NAME: Ortiz Jacobs DATE: January 05, 2020 TIME: 2:34 PM PAGER/CONTACT #: [phone] [facility] STAFF PHYSICIAN NOTE OF PERSONAL INVOLVEMENT IN CARE I have reviewed the consult note obtained and documented by the physician geriatric assistant and I personally participated in the garcia components. I have discussed the case and management of the patient's care. The following comments revise or confirm relevant garcia components of their note. IMPRESSION: This is a 49 year old female who presents with a stroke team being caught on her at 14:00. The patient has had problems with intractable spine problems and was in with a possible recurrent cauda equinus syndrome and was being worked up for neurosurgery for possible need for lumbar spine surgery etc. In reviewing her chart she has a long-standing history of hemiplegic migraines the present with acute onset of left-sided weakness that she received intravenous TPA at [facility] once for in the past. In reviewing her records here at [facility] she has had at least 4 documented instances of recurring left hemiplegia. She was eating lunch today and it was noted that she choked on her solid by her nurse Marc. He called Dr. Guzman and it was quickly realized that she had a left-sided facial droop and left-sided weakness or stroke team was called. Both Allyssa QUINTANA and Neelam responded to the stroke team. Although based upon her previous history I was highly certain that this was another hemiplegic migraine and she would not need intravenous TPA, nevertheless we proceeded as per protocol to obtain a stat brain attack noncontrast head CT as well as a neck brain CTA. The patient herself was anxious and tearful and tremulous and was not a good historian when I first evaluated her at 1405. She was however able to follow commands and clearly was weak on her left side. As soon as her imaging studies were completed I reviewed her CT angiogram of the neck and brain which was normal and then proceeded to look at her noncontrast head CT which much to my extreme surprise demonstrated diffuse cerebral edema with cerebellar tonsillar herniation. I did ask Allyssa QUINTANA to order immediately 1 g/kg of mannitol stat and her range for immediate transferred to the neuroscience intensive care unit and I immediately contacted Dr. Beverly Vora to expedite this transfer as well. She did remain alert following commands and tremulous though was improving as the mannitol was infusing and both Allyssa QUINTANA and myself followed her physically down to the CVICU bed (The NSICU physically was full so she was boarding in the CVICU) until Dr. Vora physically arrived which was very shortly after arrival to take over her care at that point in time. We did also have the mannitol immediately sent up to the floor surface to not delay administration of this imminently life and herniation saving medication and ran again as fast as possible wide-open on the floor. It was still infusing when she got to the ICU. There was not an adequate line in place for me to consider using hypertonic saline. I am assuming that perhaps she has spinal leak from her myelogram and is having sufficiently severe intracranial hypotension that she has developed diffuse cerebral edema a known rare complication of this problem. The neurosurgery team was also immediately summoned and in fact was at the bedside as soon as we arrived to the ICU for consideration of a suboccipital posterior craniectomy if needed to decompress her cerebellar tonsils since her tremulousness was the result of tonsillar herniation (cerebellar shiver). I personally spent 40 minutes of time providing immediate emergent unexpected neuro critical care to the patient spent coordinating emergency care and coordination of care and administration of the mannitol as noted above in this critically ill unstable patient who is an imminent risk for catastrophic neurological injury cerebellar tonsillar herniation and imminent in the absence of such intervention. SIGNATURE: Leandra Joiner MD PAGER: [phone] DATE of SERVICE: January 05, 2020 TIME of SERVICE: 4:59 PM Normal [facility] CONSULT PROGon 01-05-2020 CONSULT PROG HNO ID: [id number] Author: Sonia Ferreira (Lilian) LILIAN Barros Service: Neurosurgery Author Type: Physician Paper Twister Type: Consult Progress Note Filed: 01/06/2020 7:16 AM Note Text: Neurosurgery had been reconsulted after pt had an episode of choking on food and syncope or near syncope, stroke-like symptoms and severe h/a, whereby a stroke team had been initiated. Pt had CT/CTA of brain and was found to have tonsillar herniation and cerebral edema. Pt presented ICU alert but lethargic and disoriented with dysarthria, left facial droop and lue plegia. On exam pt was following commands, moving rue/rle well, hyperreflexive right patella, negative babinski. lue flaccid without sensation, lle very weak. She also had decreased sensation to the left face and forehead. Pupils equal and brisk. Pt seen earlier today by this PA. Pt stated at that time that she felt a lot better, pain and spasms had significantly improved. Pt did not c/o headache at that time. Dr. Fuentes (attending on this pt) and Dr. Hare (pulmonary physical therapist) were both notified following these new developments. 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 Pt was stephan flat and treatment by neurology initiated. No current neurosurgical intervention indicated. Will continue to follow. LILIAN Rodríguez 4:15 PM Normal [facility] CPKon 01-05-2020 CK [Catalytic activity/Vol] 57 U/L Normal 42-196 [facility] Comment on above: Performed By: #### G FR #### [facility] [address] [address] [address] BRAIN ATTACK WO IVCONon 0 01-05-2020 CT BRAIN ATTACK WO IVCON * * *Final Report* * * DATE OF EXAM: Jan 05 2020 2:31PM [facility] 0502 - CT BRAIN ATTACK WO IVCON / PROCEDURE REASON: Intracranial hemorrhage * * * * Physician Interpretation * * * * EXAMINATION: CT BRAIN ATTACK WITHOUT IV CONTRAST CLINICAL HISTORY: Intracranial hemorrhage. Decreased level of consciousness. Weakness. Brain attack. TECHNIQUE: Routine CT of the brain without IV contrast. MQ: CTBA_4 CT Dose-Length Product (DLP): 1485 mGy*cm which also includes CTA head and CTA neck. CT Dose Reduction Employed: Automated exposure control and iterative recon COMPARISON: CTA head and neck RESULT: Acute ischemic change: None. ASPECT Score = 10 Hemorrhage: No evidence of acute intracranial hemorrhage. ECASS Hemorrhagic Transformation Score = Not Applicable Mass Lesion / Mass Effect: Diffuse loss of cerebral sulci and basilar cisterns consistent with cerebral edema. There appears to be probable cerebellar tonsillar herniation. Prior basilar tip artery aneurysm coiling. Chronic change: None. Parenchyma: There is no significant volume loss. The brain parenchyma is otherwise within normal limits for age. Ventricles: Normal caliber and morphology. Other: Mild mucosal thickening in the left maxillary sinus. The visualized calvarium, skull base, orbits and extracranial soft tissues are normal. IMPRESSION: Findings suggesting diffuse cerebral edema with a component of cerebellar tonsillar herniation. CRITICAL TEST/RESULTS: Notification initiated at 14:50. Communicated with Dr. Joiner on 01/05/2020 at 14:52. CR_1 Radio Station Engineer: BINTA Transcribe Date/Time: Jan 05 2020 2:35P Dictated by : CLEM OSBORNE MD This examination was interpreted and the report reviewed and electronically signed by: CLEM OSBORNE MD on Jan 05 2020 2:53PM EST CRITICAL!! Critically high [facility] CTA HEAD W IVCONon 0 CTA HEAD W IVCON * * *Final Report* * * DATE OF EXAM: Jan 05 2020 2:31PM [facility] 0022 - CTA HEAD W IVCON / PROCEDURE REASON: TIA, initial exam * * * * Physician Interpretation * * * * EXAMINATION: CTA HEAD WITH IV CONTRAST, CTA NECK WITH IV CONTRAST CLINICAL HISTORY: Brain attack. Stroke team. Left-sided weakness. Decreased level of consciousness. TECHNIQUE: Spiral high resolution axial images were obtained through the head, neck and superior mediastinum following bolus administration of intravenous contrast for CT angiography. 3D maximum intensity projection images were created, reviewed and archived . MQ: CTAHN_4 Contrast: 100 mL Omnipaque 350 IV Dose-Length Product (DLP): 1485 mGy*cm which also includes a CT brain attack. CT Dose Reduction Employed: Automated exposure control and iterative recon COMPARISON: CTA head and neck 01/14/2017. RESULT: BRAIN: Evaluation of the individual slices of the CTA demonstrates no evidence of an acute stroke. ASPECT Score = 10 Hemorrhage: No evidence of acute intracranial hemorrhage. ECASS hemorrhagic transformation score: Not Applicable Spot Sign Presence: Not Applicable Spot Sign Number: Not Applicable NECK: Soft tissues: The soft tissue planes are maintained throughout. No evidence of a soft tissue mass in the neck or superior mediastinum. No significant lymphadenopathy is seen. Spine: Alignment is normal. Mild to moderate multilevel degenerative changes are present. Prior anterior cervical hardware fixation at the C6-C7 level. Lung apices: The visualized lung apices are clear. CT ARTERIOGRAM: Extracranial Circulation: Aortic Arch: There is a normal branching pattern from the aortic arch. There is no significant stenosis in the proximal brachiocephalic vessels. Carotid Stenosis: Right Common: No significant stenosis. Right Internal Carotid Plaque: No significant plaque formation. Right Internal Carotid Stenosis (% by NASCET Criteria): 0% Left Common: No significant stenosis. Left Internal Carotid Plaque: No significant plaque formation. Left Internal Carotid Stenosis (% by NASCET Criteria): 0% Cervical Vertebral Arteries: Patency: Bilateral Dominance: Left Intracranial Circulation: There is evidence of prior basilar tip artery aneurysm coiling. No definite evidence of residual aneurysm given the limitations of the modality. The CTA of the head is otherwise within normal limits. There is no evidence of significant stenosis, definite aneurysm, or other vascular abnormality. The distal internal carotid, distal vertebral, basilar, and proximal cerebral arteries are patent. IMPRESSION: 1. Prior basilar tip artery aneurysm coiling. 2. No evidence of large vessel occlusion or arterial stenosis in the head or neck. Radio Station Engineer: PSCB Transcribe Date/Time: Jan 05 2020 2:55P Dictated by : CLEM OSBORNE MD This examination was interpreted and the report reviewed and electronically signed by: CLEM OSBORNE MD on Jan 05 2020 3:03PM EST Normal [facility] CTA NECK W IVCONon 0 CTA NECK W IVCON * * *Final Report* * * DATE OF EXAM: Jan 05 2020 2:31PM [facility] 0024 - CTA NECK W IVCON / PROCEDURE REASON: TIA, initial exam * * * * Physician Interpretation * * * * EXAMINATION: CTA HEAD WITH IV CONTRAST, CTA NECK WITH IV CONTRAST CLINICAL HISTORY: Brain attack. Stroke team. Left-sided weakness. Decreased level of consciousness. TECHNIQUE: Spiral high resolution axial images were obtained through the head, neck and superior mediastinum following bolus administration of intravenous contrast for CT angiography. 3D maximum intensity projection images were created, reviewed and archived . MQ: CTAHN_4 Contrast: 100 mL Omnipaque 350 IV Dose-Length Product (DLP): 1485 mGy*cm which also includes a CT brain attack. CT Dose Reduction Employed: Automated exposure control and iterative recon COMPARISON: CTA head and neck 01/14/2017. RESULT: BRAIN: Evaluation of the individual slices of the CTA demonstrates no evidence of an acute stroke. ASPECT Score = 10 Hemorrhage: No evidence of acute intracranial hemorrhage. ECASS hemorrhagic transformation score: Not Applicable Spot Sign Presence: Not Applicable Spot Sign Number: Not Applicable NECK: Soft tissues: The soft tissue planes are maintained throughout. No evidence of a soft tissue mass in the neck or superior mediastinum. No significant lymphadenopathy is seen. Spine: Alignment is normal. Mild to moderate multilevel degenerative changes are present. Prior anterior cervical hardware fixation at the C6-C7 level. Lung apices: The visualized lung apices are clear. CT ARTERIOGRAM: Extracranial Circulation: Aortic Arch: There is a normal branching pattern from the aortic arch. There is no significant stenosis in the proximal brachiocephalic vessels. Carotid Stenosis: Right Common: No significant stenosis. Right Internal Carotid Plaque: No significant plaque formation. Right Internal Carotid Stenosis (% by NASCET Criteria): 0% Left Common: No significant stenosis. Left Internal Carotid Plaque: No significant plaque formation. Left Internal Carotid Stenosis (% by NASCET Criteria): 0% Cervical Vertebral Arteries: Patency: Bilateral Dominance: Left Intracranial Circulation: There is evidence of prior basilar tip artery aneurysm coiling. No definite evidence of residual aneurysm given the limitations of the modality. The CTA of the head is otherwise within normal limits. There is no evidence of significant stenosis, definite aneurysm, or other vascular abnormality. The distal internal carotid, distal vertebral, basilar, and proximal cerebral arteries are patent. IMPRESSION: 1. Prior basilar tip artery aneurysm coiling. 2. No evidence of large vessel occlusion or arterial stenosis in the head or neck. Radio Station Engineer: BINTA Transcribe Date/Time: Jan 05 2020 2:55P Dictated by : CLEM OSBORNE MD This examination was interpreted and the report reviewed and electronically signed by: CLEM OSBORNE MD on Jan 05 2020 3:03PM EST Normal [facility] Hemogram/Diffon 01-05-2020 Abs Immature Grans 0.12 thou/cmm High 0.00-0.05 [facility] Comment on above: Performed By: #### C MP #### [facility] [address] [address] Abs Neut (ANC) 9.58 thou/cmm High 1.56-6.13 [facility] Comment on above: Performed By: #### C MP #### [facility] [address] [address] Abs. Baso 0.02 thou/cmm Normal 0.01-0.08 [facility] Comment on above: Performed By: #### C MP #### [place] [address] Abs. Republic 0.71 thou/cmm High 0.27-0.70 [facility] Comment on above: Performed By: #### C MP #### [facility] [address] [address] Basophils/100 WBC (Bld) 0.2 % Normal [facility] Comment on above: Performed By: #### C MP #### [place] [address] Eosinophils (Bld) [#/Vol] 0.00 thou/cmm Normal 0.00-0.31 [facility] Comment on above: Performed By: #### C MP #### [facility] [address] [address] Eosinophils/100 WBC (Bld) 0.0 % Normal [facility] Comment on above: Performed By: #### C MP #### [facility] [address] [address] Erythrocyte distribution width (RBC) [Ratio] 13.2 % Normal 11.7-14.4 [facility] Comment on above: Performed By: #### C MP #### [place] [address] Hematocrit (Bld) [Volume fraction] 45.2 % High 34.1-44.9 [facility] Comment on above: Performed By: #### C MP #### [facility] [address] [address] Hemoglobin (Bld) [Mass/Vol] 14.7 g/dL Normal 11.2-15.7 [facility] Comment on above: Performed By: #### C MP #### [facility] [address] [address] Immature Grans 1.10 % Normal [facility] Comment on above: Performed By: #### C MP #### [facility] [address] [address] Lymphocytes (Bld) [#/Vol] 0.77 thou/cmm Low 1.18-3.74 [facility] Comment on above: Performed By: #### C MP #### [facility] [address] [address] Lymphocytes/100 WBC (Bld) 6.9 % Normal [facility] Comment on above: Performed By: #### C MP #### [facility] [address] [address] MCH (RBC) [Entitic mass] 32.5 pg High 25.6-32.2 [facility] Comment on above: Performed By: #### C MP #### [place] [address] MCHC (RBC) [Mass/Vol] 32.5 % Normal 31.6-34.8 [facility] Comment on above: Performed By: #### C MP #### [facility] [address] [address] MCV (RBC) [Entitic vol] 99.8 fL High 79.4-94.8 [facility] Comment on above: Performed By: #### C MP #### [place] [id number] Monocytes/100 WBC (Bld) 6.3 % Normal [facility] Comment on above: Performed By: #### C MP #### [facility] [address] [address] Platelet mean volume (Bld) [Entitic vol] 9.8 fL Normal 9.4-12.3 [facility] Comment on above: Performed By: #### C MP #### [facility] [address] [address] Platelets (Bld) [#/Vol] 301 thou/cmm Normal 182-369 [facility] Comment on above: Performed By: #### C MP #### [facility] [address] [address] RBC (Bld) [#/Vol] 4.53 mil/cmm Normal 3.93-5.22 [facility] Comment on above: Performed By: #### C MP #### [place] [address] RDW SD 48.6 fl High 36.4-46.3 [facility] Comment on above: Performed By: #### C MP #### [facility] [address] [address] Seg Neutrophil 85.5 % Normal [facility] Comment on above: Performed By: #### C MP #### [place] [address] WBC (Bld) [#/Vol] 11.20 thou/cmm High 3.98-10.04 [facility] Comment on above: Performed By: #### C MP #### [place] [address] Abs Immature Grans 0.11 thou/cmm High 0.00-0.05 [facility] Comment on above: Performed By: #### C BC1 #### [place] [address] Abs Neut (ANC) 11.33 thou/cmm High 1.56-6.13 [facility] Comment on above: Performed By: #### C BC1 #### [place] [address] Abs. Baso 0.01 thou/cmm Normal 0.01-0.08 [facility] Comment on above: Result Comment: Smea r scanned; tech agrees with automated differential Performed By: #### C BC1 #### [facility] [address] [place], [place] [address] Abs. [place] 0.64 thou/cmm Normal 0.27-0.70 [facility] Comment on above: Performed By: #### C BC1 #### [facility] [address] [place], [place] [address] Basophils/100 WBC (Bld) 0.1 % Normal [facility] Comment on above: Performed By: #### C BC1 #### [facility] [address] [place], [place] [address] Eosinophils (Bld) [#/Vol] 0.00 thou/cmm Normal 0.00-0.31 [facility] Comment on above: Performed By: #### C BC1 #### [facility] [address] [place], [place] [address] Eosinophils/100 WBC (Bld) 0.0 % Normal [facility] Comment on above: Performed By: #### C BC1 #### [facility] [address] [place], [place] [address] Immature Grans 0.80 % Normal [facility] Comment on above: Performed By: #### C BC1 #### [facility] [address] [place], [place] [address] Lymphocytes (Bld) [#/Vol] 1.48 thou/cmm Normal 1.18-3.74 [facility] Comment on above: Performed By: #### C BC1 #### [facility] [address] [place], [place] [address] Lymphocytes/100 WBC (Bld) 10.9 % Normal [facility] Comment on above: Performed By: #### C BC1 #### [facility] [address] [place], [place] [address] Monocytes/100 WBC (Bld) 4.7 % Normal [facility] Comment on above: Performed By: #### C BC1 #### [facility] [address] [place], [place] [address] Seg Neutrophil 83.5 % Normal [facility] Comment on above: Performed By: #### C BC1 #### [facility] [address] [address] Erythrocyte distribution width (RBC) [Ratio] 13.1 % Normal 11.7-14.4 [facility] Comment on above: Performed By: #### C BC1 #### [facility] [address] [place] [address] Hematocrit (Bld) [Volume fraction] 47.0 % High 34.1-44.9 [facility] Comment on above: Performed By: #### C BC1 #### [facility] [address] [place] [address] Hemoglobin (Bld) [Mass/Vol] 15.3 g/dL Normal 11.2-15.7 [facility] Comment on above: Performed By: #### C BC1 #### [place] [address] MCH (RBC) [Entitic mass] 32.1 pg Normal 25.6-32.2 [facility] Comment on above: Performed By: #### C BC1 #### [facility] [address] [place] [address] MCHC (RBC) [Mass/Vol] 32.6 % Normal 31.6-34.8 [facility] Comment on above: Performed By: #### C BC1 #### [facility] [address] [place] [address] MCV (RBC) [Entitic vol] 98.5 fL High 79.4-94.8 [facility] Comment on above: Performed By: #### C BC1 #### [facility] [address] [place] [address] Platelet mean volume (Bld) [Entitic vol] 9.8 fL Normal 9.4-12.3 [facility] Comment on above: Performed By: #### C BC1 #### [facility] [address] [place] [address] Platelets (Bld) [#/Vol] 352 thou/cmm Normal 182-369 [facility] Comment on above: Performed By: #### C BC1 #### [facility] [address] [place], [place] [address] RBC (Bld) [#/Vol] 4.77 mil/cmm Normal 3.93-5.22 [facility] Comment on above: Performed By: #### C BC1 #### [facility] [address] [place], [place] [address] RDW SD 47.5 fl High 36.4-46.3 [facility] Comment on above: Performed By: #### C BC1 #### [facility] [address] [place], [place] [address] WBC (Bld) [#/Vol] 13.57 thou/cmm High 3.98-10.04 [facility] Comment on above: Performed By: #### C BC1 #### [facility] [address] [place] [address] Lactic Acidon 01-05-2020 Lactate [Moles/Vol] 1.3 mmol/L Normal 0.5-2.2 [facility] Comment on above: Performed By: #### G FR #### [facility] [address] [place] [address] Lactate [Moles/Vol] 1.5 mmol/L Normal 0.5-2.2 [facility] Comment on above: Performed By: #### C MP #### [place] [address] NURSING PROGon 01-05-2020 NURSING PROG HNO ID: [id number] Author: Sneha (Rn) CLIVE Rangel Service: ? Author Type: Registered Nurse Type: Nursing Progress Note Filed: 01/05/2020 2:15 PM Note Text: Nursing Progress Note Patient Name: Ortiz Jacobs Patient Location: [id number] Daily Note: 2:14 PM patient having seizure like activity. Dr Hernandez at bedside and Ivy Reyes NP neuro at bedside. This note was completed by: Sneha Rangel RN [facility] NURSING PROG HNO ID: [id number] Author: Sneha CerratoRn) CLIVE Rangel Service: ? Author Type: Registered Nurse Type: Nursing Progress Note Filed: 01/05/2020 2:12 PM Note Text: Nursing Progress Note Patient Name: Ortiz Jacobs Patient Location: [id number]/[id number] Daily Note: 1405 cva team called overhead 1410 stroke team assembled with Dr. Hernandez and Ivy Reyes NP at bedside BS 117, vitals recorded This note was completed by: Sneha Rangel RN [facility] NURSING PROG HNO ID: [id number] Author: Colleen CerratoRn) CLIVE Sargent Service: Nursing Author Type: Registered Nurse Type: Nursing Progress Note Filed: 01/05/2020 4:08 AM Note Text: Pt still with c/o constipation and feels abdomen more distended. Requesting lactulose message sent to [facility] Osmolality Serumon 0 Osmolality [Osmolality] 308 mOsm/kg High 276-298 [facility] Comment on above: Performed By: #### G FR #### [facility] [address] [place] [address] PROGRESSon 01-05-2020 PROGRESS HNO ID: [id number] Author: Allyssa Acosta) Samson Service: Neurology ICU Author Type: Physician Paper Twister Type: Progress Notes Filed: 01/05/2020 5:32 PM Note Text: SERVICE DATE: 01/05/2020 SERVICE TIME: 5:32 PM NEUROLOGICAL INTENSIVE CARE UNIT HISTORY AND PHYSICAL REASON FOR ADMISSION: Cerebral Edema Subjective HPI: Patient is a 49 year old female originally admitted for lower back pain with lower extremity weakness R>L who was last known well around [address] Horta evaluated her when she was choking on her salad. A Left facial droop was then noted and stroke team alerted. When looking further into her hx she has had multiple documented episodes of left sided weakness with left facial droop with a migraine lasting for days after. CT tia attack and CTA head and neck ordered. Stroke team conducted with Dr. Joiner. CT brain with cerebral edema with cerebellar tonsillar herniation patient transfer to NSICU. PAST MEDICAL HISTORY Diagnosis Date - Back pain - Depression - Intracranial aneurysm - Sleep disorder - Smoking - Stomach cancer (HCC) 2009 - Stroke (HCC) 09/09/2010 Right Hemisphere - Uterine cancer (HCC) 2010 No past surgical history on file. FAMILY HISTORY Problem Relation Age of Onset - Arthritis Father - Coronary Artery Disease Father - Hypertension Father - Lipids Father - Arthritis Mother - Diabetes Mother - Hypertension Mother - Psychiatry Brother bipolar - Cancer Sister - Headache Sister - Psychiatry Sister bipolar ALLERGIES Allergen Reactions - Darvocet A500 [Prop* Shortness of Breath - Penicillins Swelling - Darvocet A500 [Prop* Unknown - Penicillins Unknown PRIOR TO ADMISSION MEDICATIONS: gabapentin (NEURONTIN) 300 mg capsule, Take 300 mg by mouth three times daily., Disp: , Rfl: fluticasone-salmeterol (ADVAIR DISKUS) 250-50 mcg/dose, Inhale 1 Puff as instructed twice daily., Disp: , Rfl: Multivitamins-Minerals- Lutein (MULTIVITAMIN 50 PLUS) tab, Take 1 tablet by mouth once daily., Disp: , Rfl: levETIRAcetam (KEPPRA) 250 mg tablet, Take 1,500 mg by mouth twice daily. , Disp: , Rfl: , 01/02/2020 at Unknown time melatonin 10 mg tab, Take 10 mg by mouth daily at bedtime., Disp: , Rfl: , 01/02/2020 at Unknown time ALBUTEROL INHALATION, Inhale as instructed twice daily., Disp: , Rfl: , 01/02/2020 at Unknown time fluticasone propionate (FLONASE ALLERGY RELIEF NASAL), Use 1 Denton in the nose twice daily. , Disp: , Rfl: , 01/02/2020 at Unknown time omeprazole (PRILOSEC) 20 mg ORAL capsule, Take 40 mg by mouth once daily. , Disp: , Rfl: 0, 01/02/2020 at Unknown time Social History Tobacco Use - Smoking status: Current Every Day Smoker Packs/day: 0.50 Years: 10.00 Pack years: 5.00 Types: Cigarettes Substance Use Topics - Alcohol use: Yes Comment: Occassionally - Drug use: No Employer And Job Title: No employer specified ([employer]) Years Of Education Completed: Not specified Marital Status: with 2 children REVIEW OF SYSTEMS: patient unable to answer at this time. Objective Vital Signs (Last 24hrs min/max): BP 123/74 Pulse 83 Temp 36.6 ?C (97.9 ?F) (Oral) Resp 17 Ht 175.3 cm (5' 9) Wt 102.7 kg (226 lb 6.4 oz) SpO2 98% BMI 33.43 kg/m? PHYSICAL EXAM: NEUROLOGICAL: GCS: Eyes: 4. Spontaneous Verbal: 3: Inappropriate words Motor: 6: Obeys Motor commands Total: 13 MOTOR STRENGTH: limited movement x4 able to resist gravity but unable to sustain. SENSATION: difficult to assess due to dysarthria. COORDINATION: unable to test due to weakness CV: RRR Pulm: Coarse BL, 2 L NL GI/: soft, nondistended and non tender Skin/Extremities: Edema- No Peripheral pulses- Present all extremities Wounds/Drsgs- No Breakdown- No DATA: Diagnostic tests reviewed for today's visit: Most recent labs and imaging results. Lines, Drains, and Airways Line Peripheral 01/03/20 0325 Admission to Hospital Midline Right Antecubital 20 Gauge 2 days Drain Indwelling Urinary Catheter 01/05/20 1544 Assessment Rodriguez 16 Fr less than 1 day PERSONAL INVOLVEMENT IN CARE: Reviewing initiation, responses and adjustments to therapies, coordination of care, and updating family with Staff Physician, Dr. Vora. Assessment AND Plan Active Hospital Problems as of 01/05/2020 Noted - Resolved Hospital Severe back pain 01/03/2020 - Present Current Assessment AND Plan Had epidural injection performed december 27 then started to develop lower back pain with paraesthesias. Myelogram performed 01/02- no cauda equina, no surgery indicated Pain management following -gabapentin -oxy IR -decadron -lidoderm patch Cerebral edema (HCC) 01/05/2020 - Present Current Assessment AND Plan 100 mannitol stat given during stroke team 01/04 300 ml 3% HTS, Stat 75ml/hr gtt started now. reverese trendelenburg CT brain in AM Urinary retention 01/05/2020 - Present Current Assessment AND Plan Rodriguez was removed today while on floor and now replaced for I/O accuracy UA and culture was sent out yesterday with no grown Epilepsy (HCC) 01/05/2020 - Present Current Assessment AND Plan Cont home keppra. Will change to IV for now. Hyperglycemia 01/05/2020 - Present Current Assessment AND Plan Ha1c pending ISS Glucose checks q6h while NPO Compression of brainstem (HCC) 01/05/2020 - Present Brain compression (HCC) 01/05/2020 - Present Stroke of unusual cause (HCC) 01/05/2020 - Present Constipation 01/05/2020 - Present Current Assessment AND Plan Patient states that lactulose is the only medication that works for her Will cont Medication and Non-Pharmacologic VTE Prophylaxis/Anticoagula nts 01/04/20 0945 pneumatic compression stockings ([place], [place]) 01/03/20 0345 vte non-pharmacologic prophylaxis - none indicated ([place], [place]) VTE Prophylaxis: Contraindicated possible LP Plan of care discussed with: Provider, RN, Patient SIGNATURE: ALLYSSA REYES PA-C PATIENT NAME: Ortiz Jacobs DATE: January 05, 2020 TIME: 5:32 PM PAGER/CONTACT #: [id number] [facility] PROGRESS HNO ID: [id number] Author: Ching Horta Service: Hospital Medicine Author Type: Physician Type: Progress Notes Filed: 01/05/2020 3:15 PM Note Text: Alerted that patient was coughing and had choked on a piece of lettuce while eating lunch. Then she had coughing and vomiting and felt like she coughed up the piece of lettuce. She was placed on NC and breathing treatment was called for. Per Rt, she appeared to pass out during this time and become less responsive. She completed a breathing treatment when she said that she felt funny and tingly and was noted to have L sided facial droop and paresthesias around her mouth and L arm with L arm drift and decreased sensation to her L face and L upper extremity. Patient also with dysarthria. Bilateral rhonci on lung exam. She said she felt funny. Stroke team was initiated and neurology to bedside with stroke care pathway. Patient awake and alert throughout my exam. Stat chest xray, abg and stat labs ordered as well as EKG in the setting of possible syncope with RT and aspiration, breathing treatments, ST- continue tele and echo as well as stroke team orders Normal [facility] PROGRESS HNO ID: [id number] Author: Janeth Valderrama Service: Pain Management Author Type: Physician Type: Progress Notes Filed: 01/05/2020 12:19 PM Note Text: Name: ORTIZ JACOBS Age: [age] year old PAIN MANAGEMENT: Back Pain Pain Description: Patient remains anxious, tearful, ongoing low back pain and complaints of charley horse sensation bilateral lower extremities; worse at right foot and leg 24H Pain Regimen: Decadron 4 mg IV ?4 Gabapentin 300 mg ?1, 400 mg ?1 Oxycodone 5 mg ?2, 10 mg ?3 Lidoderm patch Interval HPI: Stable overnight, needs bowel movement. No BM ?6 days; she requesting lactulose which has helped in the past 01/02 CT Myelogram L3?for small posterior central disc extrusion with caudal migration causing moderate narrowing of thecal sac left greater than right neural foraminal narrowing. Postop changes L4-S1. Thoracic spine T10-T11 small right paracentral disc protrusion Cervical spine mild multilevel cervical degenerative disc disease. Postsurgical changes at C6-C7 Subjective HPI: 49-year-old female with history of seizures, prior L4-S1 fusion in 2015 at [facility], prior C6-C7 fusion 2006, basilar artery aneurysm status post coiling 2011, stroke 2010 and GERD, gastroparesis status post gastric pacemaker presented 01/02 from [place] transfer with intractable back pain, urinary retention and severe bilateral lower extremity pain and spasm. Patient is followed by Dr. Robledo in [place] for pain management; last SI joint injection 12/28. CT myelogram pending; patient unable to have MRI due to gastric pacemaker. Of note, patient was hospitalized twice October, at [facility] for L3-L4 and T10-T11 disc herniation with radiculopathy. Outpatient PT, Decadron therapy and spine follow-up recommended. She re-presented with left arm numbness and facial droop; imaging negative for acute stroke. Symptoms felt to be secondary to migraine. In review of records during that hospitalization, there is concern for suspicious drug-seeking behavior as documented in the chart (including requesting opiate prescription at discharge despite recent filling prescription Percocet No. 100, and requesting IV opiates) Patient lives alone. She denies tobacco, alcohol or illicit meds. Home pain regimen includes gabapentin 300 mg 3 times daily. She no longer takes daily opiates. She previously had been on long-acting opiates last year. 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 11/11/2019 Gabapentin 300 MG Capsule 90.00 30 Eu Pet [id number] [id number] [place] 09/26/2019 2 09/25/2019 Oxycodone-Acetaminophen 5-325 12.00 3 Al Abby [id number] [facility] ([id number] 0 30.00 [place] 09/19/2019 2 09/19/2019 Oxycodone-Acetaminophen 5-325 15.00 3 Do Kol [id number] [facility] ([id number] 0 37.50 [place] 08/31/2019 2 08/31/2019 Gabapentin 300 MG Capsule 90.00 30 Ay Bas [id number] [facility] ([id number] [place] 07/15/2019 2 07/15/2019 Gabapentin 300 MG Capsule 90.00 30 Ay Bas [id number] [facility] ([id number] [place] 06/03/2019 2 05/30/2019 Diazepam 5 MG Tablet 10.00 4 To Le [id number] [facility] ([id number]) 0 1.25 LME [place] 06/03/2019 2 05/30/2019 Oxycodone-Acetaminophen 5-325 12.00 3 To Le [id number] [facility] ([id number]) 0 30.00 [place] 06/03/2019 2 06/03/2019 Gabapentin 300 MG Capsule 60.00 20 Je B [id number] [facility] ([id number]) 0 Medicare Current Facility-Administered Medications Medication Dose Route Frequency Provider Last Rate Last Dose - lactulose 20 g CUP (DUPHALAC, CONSTULOSE) 20 g ORAL TID Janeth K Scantling 20 g at 01/05/20 0841 - polyethylene glycol 3350 17 g packet (MIRALAX, GLYCOLAX) 17 g ORAL DAILY PRN Janeth K Scantling - levETIRAcetam (KEPPRA) tab(s) 1,500 mg 1,500 mg ORAL BID Ching Leivaef 1,500 mg at 01/05/20 0841 - sodium chloride 0.65 % 2 Denton (AYR, OCEAN) 2 Denton EACH NOSTRIL PRN Ching Horta - senna-docusate 8.6-50 mg 2 tablet (SENNA-S) 2 tablet ORAL BID Janeth K Scantling 2 tablet at 01/05/20 0841 - iv contrast (radiology procedure) INTRAVENOUS DIRECTED PRN Gayle Leon - cyclobenzaprine 5 mg tab(s) (FLEXERIL) 5 mg ORAL TID PRN Janeth K Scantling 5 mg at 01/05/20 1144 - melatonin 9 mg tab(s) 9 mg [facility] AT [facility]ED[facility] 01/04/20 1957 - enoxaparin 40 mg injection (LOVENOX) 40 mg [facility]ANE[facility]ILY [facility] at 01/05/20 0841 - NaCl 0.9% 3-5 mL 3-5 mL INTRAVENOUS q 12 H [facility] mL at 01/05/20 0842 - ondansetron 4 mg tab(s) (ZOFRAN) 4 mg ORAL q 6 H PRN Naar Gonzalez 4 mg at 01/05/20 0841 Or - ondansetron (PF) 4 mg injection (ZOFRAN) 4 mg INTRAVENOUS q 6 H [facility] 4 mg at 01/05/20 0354 - dexamethasone sodium phosphate 4 mg injection (DECADRON) 4 mg INTRAVENOUS q 6 H [facility] mg at 01/05/20 1146 - pantoprazole DR 40 mg tab(s) (PROTONIX) 40 mg ORAL DAILY (6 AM) Naar Gonzalez 40 mg at 01/05/20 0610 - dextrose 40 % 15 g 15 g [facility]AL [facility] - glucagon 1 mg injection (GLUCAGEN) 1 mg INTRAMUSCULAR PRN [facility] Or - dextrose 50% in water 25 mL syringe 12.5 g INTRAVENOUS PRN [facility] - insulin lispro pen (rapid acting) (HumaLOG KWIKPEN) SUBCUTANEOUS w MEALS [facility] 4 Units at 01/05/20 1145 - albuterol 2.5 mg /3 mL (0.083 %) 2.5 mg (PROVENTIL) 2.5 mg INHALATION q 6 H PRN Binarosangela Gonzalez - magnesium oxide 400 mg tab(s) (MAG-OX) 400 mg ORAL BID Ivy Rao 400 mg at 01/05/20 0843 - lidocaine 4 % 1 Patch (SALONPAS) 1 Patch TRANSDERMAL DAILY Ivy Rao 1 Patch at 01/05/20 0843 And - lidocaine patch - REMOVE OTHER AT BEDTIME Ivy Rao And - lidocaine - VERIFY PATCH OTHER q 8 H Ivy Rao - gabapentin 300 mg cap(s) (NEURONTIN) 300 mg ORAL TID Janeth K Scantling 300 mg at 01/05/20 0841 - oxyCODONE IR 5-10 mg tab(s) (ROXICODONE) 5-10 mg ORAL q 4 H PRN Janeth K Scantling 10 mg at 01/05/20 0840 gabapentin (NEURONTIN) 300 mg capsule, Take 300 mg by mouth three times daily., Disp: , Rfl: fluticasone-salmeterol (ADVAIR DISKUS) 250-50 mcg/dose, Inhale 1 Puff as instructed twice daily., Disp: , Rfl: Multivitamins-Minerals- Lutein (MULTIVITAMIN 50 PLUS) tab, Take 1 tablet by mouth once daily., Disp: , Rfl: levETIRAcetam (KEPPRA) 250 mg tablet, Take 1,500 mg by mouth twice daily. , Disp: , Rfl: , 01/02/2020 at Unknown time melatonin 10 mg tab, Take 10 mg by mouth daily at bedtime., Disp: , Rfl: , 01/02/2020 at Unknown time ALBUTEROL INHALATION, Inhale as instructed twice daily., Disp: , Rfl: , 01/02/2020 at Unknown time fluticasone propionate (FLONASE ALLERGY RELIEF NASAL), Use 1 [place] in the nose twice daily. , Disp: , Rfl: , 01/02/2020 at Unknown time omeprazole (PRILOSEC) 20 mg ORAL capsule, Take 40 mg by mouth once daily. , Disp: , Rfl: 0, 01/02/2020 at Unknown time Social History Tobacco Use - Smoking status: Current Every Day Smoker Packs/day: 0.50 Years: 10.00 Pack years: 5.00 Types: Cigarettes Substance Use Topics - Alcohol use: Yes Comment: Occassionally - Drug use: No FAMILY HISTORY Problem Relation Age of Onset - Arthritis Father - Coronary Artery Disease Father - Hypertension Father - Lipids Father - Arthritis Mother - Diabetes Mother - Hypertension Mother - Psychiatry Brother bipolar - Cancer Sister - Headache Sister - Psychiatry Sister bipolar No past surgical history on file. ROS: All of the following reviewed and negative except as noted below: GENERAL: no fever, chills, sweats, weight loss,+ fatigue, generalized weakness HEENT: no headache, vision changes, eye discomfort, hearing change, ear discomfort, sinus pain, nasal discharge or congestion, oral lesions, soreness, dental problem NECK: no adenopathy, discomfort, change in ROM CHEST: no shortness of breath, dyspnea on exertion, wheezing, cough, sputum production or chest pain HEART: no chest pain, palpitations, syncope ABDOMEN: no nausea, vomiting, constipation, diarrhea, abdominal pain : no dysuria, urgency, frequency, history of stones, incontinence NEURO: no confusion or alteration in consciousness, slurred speech, seizure, see HPI EXTREMITIES: no new pain, edema, change in ROM HEME: no new adenopathy, bruises, petechiae PSYCH: no depression, anxiety, agitation PAIN PSYCHIATRIC EXAM: GENERAL: alert, oriented to person, place, time JUDGMENT AND INSIGHT: intact APPEARANCE: neatly groomed DEMEANOR: coooperative, not hostile, mistrustful, preoccupied, or demanding ACTIVITY: normal, not hyperactive or hypoactive, no tremors, tics EYE CONTACT: normal SPEECH: normal, rate, volume, articulation, coherence, spontaneity MOOD: anxious IDEATION: deferred MEMORY: intact PHYSICAL EXAMINATION: GENERAL: well nourished and developed; anxious, tearful,; alert and oriented x 3; intact judgement and insight HEENT: no evidence of trauma; cranial nerves intact; eyes clear EOMI; no hearing deficits apparent; nasal passages unremarkable; throat and mucous membranes clear NECK: supple without lymphadenopathy; no JVD; no thyromegaly CHEST: clear bilaterally to auscultation; normal chest movement; no rales or rhonchi HEART: regular rate and rhythm, normal S1 and S2, no murmurs, clicks, rubs, or gallops ABDOMEN: soft; nondistended; bowel sounds present; no hepatomegaly; no splenomegaly; no tenderness EXTREMITIES: no evidence of clubbing; no cyanosis; no deformity; no joint effusion; no edema NEURO: cranial nerves intact; no confusion; no tremor; sensorium normal; bilateral lower extremity weakness and pain with movement bilateral lower extremities SKIN: no rash; no skin breakdown; no decubitus lesions HEME: no bruising; no adenopathy PSYCH: no evidence of depression; + anxiety; no agitation; no apparent hallucinations BP 138/84 Pulse 62 Temp 36.5 ?C (97.7 ?F) (Oral) Resp 18 Ht 175.3 cm (5' 9) Wt 102.7 kg (226 lb 6.4 oz) SpO2 92% BMI 33.43 kg/m? BMI 33.43 kg/(m2) Date 01/02/20 07 - 01/03/20 0659(Not Admitted) 01/03/20 07 - 01/04/20 0659 Shift 4448-8402 6187-6342 6270-4179 24 Hour Total 7616-9908 8044-7891 7553-0346 24 Hour Total INTAKE Shift Total OUTPUT Urine 1300 1300 Output ( Indwelling Urinary Catheter 01/03/20 0325 Admission to Hospital Rodriguez 16 Fr) 1300 1300 Shift Total 1300 1300 Weight (kg) 100.2 100.2 100.2 100.2 100.2 100.2 ABNORMAL/NEW FINDINGS: NONE RADIOLOGY/DIAGNOSTICS: LABORATORY: CBC: Recent Labs 01/05/20 0240 WBC 13.57* RBC 4.77 HB 15.3 HCT 47.0* PLT 352 MCV 98.5* MCH 32.1 MPV 9.8 RDW 13.1 CMP: Recent Labs 01/05/20 0240 NA 138 K 4.7 CHLOR 102 CO2 25 BUN 15 CREAT 0.62 GLUC 154* CA 9.1 ANION 11 Heme: No results for input(s): RETICP, ABSRETIC, LD, RADHA, FE, TIBC, TRANSFERSAT in the last 24 hours. 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 No surgical intervention needed Patient hospitalized 1 year ago at [facility] for similar symptoms; chart reviewed No longer prescribed regular opiates Gabapentin 300 mg 3 times daily Decadron 4 mg IV every 6 hours per Neurosurgery Lidoderm patch trial Oxycodone 5-10 mg every 4 hours as needed moderate to severe pain; concern for opiate bowel dysfunction with ongoing issues constipation Flexeril 5 mg by mouth 3 times a day when necessary. Discussed with neurosurgery Change MiraLAX when necessary. Add lactulose 20 g 3 times a day per patient request. Continue senna S twice daily Disposition pending Follow-up with Dr. Robledo in [place] after discharge Janeth Valderrama MD [facility] PROGRESS HNO ID: [id number] Author: Ching Horta Service: Hospital Medicine Author Type: Physician Type: Progress Notes Filed: 01/05/2020 12:07 PM Note Text: DEPARTMENT OF HOSPITAL MEDICINE PROGRESS NOTE SERVICE DATE: 01/05/2020 SERVICE TIME: 10:10 AM Hospital Medicine/Primary Attending: Ching Horta, DO NIGHT AND WEEKEND COVERAGE: After 7pm, please call cross cover pager #[phone] Subjective INTERVAL HPI: Patient seen and examined. Thinks leg pain has improved. Still significant on R side but overall better. Complaining of R foot pain with ambulation. Wants the rodriguez removed-apparently it was put in in [place] ER for concern for urinary retention MEDICATIONS: Reviewed Objective PHYSICAL EXAM: BP 138/84 Pulse 62 Temp (Src) 97.7 (Oral) Resp 18 Ht 5' 9 (1.75m) Wt 226 lb 6.4 oz (102.7kg) SpO2 92% BMI 33.42 kg/(m2). O2 Therapy: Room Air Physical Exam Performed Constitutional - Vitals as above, not in acute distress Resp - Clear to auscultate both sides, no wheezes, crackles or rales, no labored breathing CVS- RRR. 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 Assessment/Plan #ongoing low back pain with bilateral lower extremity pain R>L with concern for urinary retention-has rodriguez changed Thursday per patient, being followed by NS and pain mgmt, pending myelogram, continue pain control, check ck, repeat BMP, mag overnight WNL, on decadron-no plan for surgical intervention, symptoms are improved, add PT and OT #hyperglycemia steroid induced-contiue accuchecks and SSI #hypokalemia-replace and repeat bmp in am #R foot pain-check xray-neg, more with ambulation, add PT #periphearl neuropathy-continue gabapentin #hx cauda equina #GERD-continue PPI #leukocytosis-likely reactive, pending urine cultuer #epilepsy-continue keppra #pyuria-will send for culture #urinary retention? Rodriguez placed in [place], void trial Medication and Non-Pharmacologic VTE Prophylaxis/Anticoagula nts Anticoagulant AND Antiplatelet Medications (From admission, onward) Start Dose Route Frequency Ordered Stop 01/03/20 0900 enoxaparin 40 mg injection (LOVENOX) (Medical Risk Categories) 40 mg SUBCUTANEOUS DAILY 01/03/20 0343 -- 01/04/20 0945 pneumatic compression stockings ([place], [place]) 01/03/20 0345 vte non-pharmacologic prophylaxis - none indicated ([place], [place]) VTE Prophylaxis: VTE prophylaxis appropriate Disposition: To be determined Plan of care discussed with: Provider, RN, Patient SIGNATURE: Ching Horta DO PATIENT NAME: Ortiz Jacobs DATE: January 05, 2020 TIME: 10:10 AM PAGER/CONTACT #: [phone] [facility] THERAPY NTon 01-05-2020 THERAPY NT HNO ID: [id number] Author: Pita (PtBasilia Gandhi Service: Physical Therapy Author Type: Physical Therapist Type: Therapy (PT/OT/Speech/Resp) Filed: 01/05/2020 1:55 PM Note Text: PHYSICAL THERAPY MISSED VISIT SERVICE DATE: 01/05/2020 SERVICE TIME: 1354 to 1354 ROOM: [place] [address] Attempted Evaluation. Patient not seen due to Illness. RN and tech in room, RN stating patient began coughing and O2 sats slightly dropped. Will follow when more appropriate. SIGNATURE: Pita Gandhi PT PATIENT NAME: Ortiz Jacobs DATE: January 05, 2020 TIME: 1:54 PM Normal [facility] Troponin T, High Sens.on Troponin T, High Sens. <6 Normal 0-11 [facility] Comment on above: Result Comment: Emi ents taking a biotin dose of up to 5 mg/day should refrain from taking biotin for 4 hours prior to sample collection. Patients taking a biotin dose of 5 to 10 mg/day should refrain from taking biotin for 8 hours prior to sample collection. Patients taking a biotin dose > 10 mg/day should consult with their physician or the laboratory prior to having a sample taken. Clinicians should consider biotin interference as a source of error, when clinically suspicious of the laboratory result. Performed By: #### C MP #### [facility] [address] [place] [address] XR CHEST 1V FRONTALon 2019 XR CHEST 1V FRONTAL * * *Final Report* * * DATE OF EXAM: Jan 05 2020 2:39PM AKX [id number] - XR CHEST 1V FRONTAL / PROCEDURE REASON: Acute respiratory illness * * * * Physician Interpretation * * * * EXAMINATION: CHEST RADIOGRAPH (SINGLE VIEW AP OR PA) CLINICAL HISTORY: Acute respiratory illness MQ: XC1_5 Comparison: 04/30/2013 RESULT: Lines, tubes, and devices: None. Lungs and pleura: No consolidation. No lung mass. No pleural effusion. Cardiomediastinal silhouette: Normal cardiomediastinal silhouette. Other: Cervical surgical fusion is noted. IMPRESSION: No acute radiographic abnormality. Radio Station Engineer: PSCJanice Transcribe Date/Time: Jan 05 2020 2:40P Dictated by : RHONDA GAO MD This examination was interpreted and the report reviewed and electronically signed by: RHONDA GAO MD on Jan 05 2020 2:41PM EST Normal [facility] Basic Metabolic Panelon - Anion gap [Moles/Vol] 16 mmol/L Normal 9-18 [facility] Comment on above: Performed By: #### C BC1 #### [facility] [address] [place], [place] [address] Calcium [Mass/Vol] 9.1 mg/dL Normal 8.5-10.2 [facility] Comment on above: Performed By: #### C BC1 #### [facility] [address] [place], [place] [address] Chloride [Moles/Vol] 100 mmol/L Normal 97-105 [facility] Comment on above: Performed By: #### C BC1 #### [facility] [address] [place], [place] [address] CO2 Blood 21 mmol/L Low 22-30 [facility] Comment on above: Performed By: #### C BC1 #### [facility] [address] [place], [place] [address] Creatinine [Mass/Vol] 0.67 mg/dL Normal 0.58-0.96 [facility] Comment on above: Performed By: #### C BC1 #### [facility] [address] [place], [place] [address] Glucose [Mass/Vol] 194 mg/dL High 74-99 [facility] Comment on above: Result Comment: The [place] Diabetes Association (ADA) provides guidance for cutoff values for fasting glucose and random glucose. The ADA defines fasting as no caloric intake for at least 8 hours.Fasting plasma glucose results between 100 to 125 mg/dL indicate increased risk for diabetes (prediabetes). Fasting plasma glucose results greater than or equal to 126 mg/dL meet the criteria for diagnosis of diabetes. In the absence of unequivocal hyperglycemia, results should be confirmed by repeat testing. In a patient with classic symptoms of hyperglycemia or hyperglycemic crisis, random plasma glucose results greater than or equal to 200 mg/dL meet the criteria for diagnosis of diabetes. Reference: Standards of Medical Care in Diabetes 2016; [place] [employer] Association. Diabetes Care. 2016;39(Suppl 1). Performed By: #### C BC1 #### [facility] [address] [place], [place] [address] Potassium [Moles/Vol] 4.2 mmol/L Normal 3.7-5.1 [facility] Comment on above: Performed By: #### C BC1 #### [facility] [address] [place], [place] [address] Sodium [Moles/Vol] 137 mmol/L Normal 136-144 [facility] Comment on above: Performed By: #### C BC1 #### [facility] [address] [place], [place] [address] Urea nitrogen [Mass/Vol] 17 mg/dL Normal 7-21 [facility] Comment on above: Performed By: #### C BC1 #### [facility] [address] [place], [place] [address] CASE MGT INIT ASSESon 2019 CASE MGT INIT ASSES HNO ID: [id number] Author: Ana (Rn) CILVE Levine Service: Care Management Author Type: Registered Nurse Type: Care Mgt Initial Assessment Filed: 01/04/2020 12:52 PM Note Text: CARE MANAGEMENT: ASSESSMENT AND DISCHARGE PLAN SERVICE DATE: January 04, 2020 SERVICE TIME: 1200 PRIMARY CARE PHYSICIAN: Amandeep Loredo ADMISSION STATUS: Inpatient Needs Prior to Discharge: OT/PT Evaluation MEDICAL: [employer] MEDICARE Last Discharge Date: 09/03/11 Is this Within the Past 30 days? 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 Attempted to Assist with AD Completion: No Unable to Assist Due To:: Other: See Comment(d/t covid policy) Health Literacy Baseline Mental Status Prior to this Illness what was the patient's Baseline Mental Status?: Alert AND Oriented Prior to this illness, has anyone described the patient having any of the following behaviors?: Not Applicable Relationship of the informant to the patient:: Self SOCIAL: Primary Contact: Extended Emergency Contact Information Primary Emergency Contact: Leandra Miller Address: [address] [place] [id number] Mobile Relation: Significant other Secondary Emergency Contact: MARC JACOBS Relation: Spouse Social Needs Food insecurity Worry: Never true Inability: Never true Resources Needed: No Social Needs Financial resource strain: Not hard at all Social Needs Transportation needs Medical: No Non-medical: No Caregiver AssessmentCaregiver is ready, willing and able to meet the patient's needs as recommended by the inter-professional team:: Yes Does the patient have an acute stroke diagnosis, or has the patient had a stroke during this admission?: Yes Patient's perception of need for this admission: Severe back pain and leg pain with cramping Are you interested in bedside delivery of your medications? Yes ASSESSMENT AND PLAN: Medical Needs: Psychosocial Needs: FREEDOM OF CHOICE EXPLAINED: [place] of Choice Given: Yes Level of Care Discussed: Home Care Financial Disclosure Provided: Yes Financial Disclosure Comments: [facility] Home Health Care Affiliation Provider List: Home Care Provider list within the patient's requested geographic area shared with the patient/family: Yes within: 10 miles of zip code: [address] Quality and resource use metrics shared with the patient that are relevant to the patient's goals of care and treatment preferences:: Yes Metrics: Potentially Preventable 30-day Post Discharge Readmission Rates POTENTIAL TRANSITION PLANS Spoke with patient via telephone, prior to admission was independent, lives alone in a 2 story home with 1/2 bath on first floor , bed and full bath on second floor. [facility]- [facility] and [facility], PCP Dr. Loredo in [place], Uses [facility] pharmacy on [address] in [place], if discharged during the week would like to use bedside pharmacy delivery. Plan is for patient to go to her [facility] at discharge. [facility] home is all on one level one step and stoop to enter. Discussed possible HHC services at discharge, if needed patient is in agreement, provided agency choice list . Patient does not drive, her daughter and neighbor provide transportation to MD appt's. Discussed contacting patients [facility] insurance to inquire about transportation thru them. Pt. 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 Pt verbalizes concerns about being able to bait painter the shower or get down into the bath tub at discharge. Pt. May benefit from a shower chair and HHC follow up at dischage. Will continue to follow. SIGNATURE: Ana Levine RN PATIENT NAME: Ortiz Jacobs DATE: January 04, 2020 TIME: 11:56 AM PAGER/CONTACT #: [phone] Normal [facility] CPKon 01-04-2020 CK [Catalytic activity/Vol] 119 U/L Normal 42-196 [facility] Comment on above: Performed By: #### C BC1 #### [facility] [address] [place], [place] [address] Cult Urineon 01-04-2020 Cult Urine Test performed at [facility] No growth <1,000 CFU/ml. Normal [facility] Comment on above: Performed By: #### C MP #### [facility] [address] [place], [place] [address] Hgb A1con 01-04-2020 HbA1c (Bld) [Mass fraction] 5.4 % Normal 4.0-5.6 [facility] Comment on above: Result Comment: [facility] Diabetes Association guidelines indicate that the patients with HgA1c in the range 5.7 ? 6.4% are at increased risk for development of diabetes, and intervention by lifestyle modification may be beneficial. HgA1c greater or equal to 6.5% is considered diagnostic of diabetes. Performed By: #### C BC1 #### [facility] [address] [place] [address] HbA1c (Bld) [Mass fraction] 108 mg/dL Normal [facility] Comment on above: Performed By: #### C BC1 #### [facility] [address] [place] [address] PLAN OF CAREon 01-04-2020 PLAN OF CARE HNO ID: [id number] Author: Felicitas Lo (Inorganic Chemistry Professor) Service: ? Author Type: ? Type: Plan of Care Filed: 01/04/2020 2:17 PM Note Text: CUSTOMER SUCCESS MANAGER BEDSIDE DELIVERY SURVEY 1. Patient to use [facility] Bedside Delivery - YES Insurance Information as follows: 2. Insurance card on file - YES 3. Credit card for payment - N/A Please call pharmacy bedside delivery at [phone] or [phone] if patient would like medications filled and delivered prior to discharge. Felicitas Lo (Inorganic Chemistry Professor) [facility] PLAN OF CARE HNO ID: [id number] Author: Jodi Gerber (Pharmacist) Service: Emergency Medicine Author Type: Pharmacist Type: Plan of Care Filed: 01/04/2020 10:17 AM Note Text: MEDICATION HISTORY Patient Name:Josue Jacobs : 1970 Source of history:Patient: Reliability of source: Appears reliable, clearly identified: Medication name, Medication dose, Medication route, Medication frequency, Timing of last dose and Indications, Pharmacy records: [facility] [phone], [facility] records and [facility] Medication Nonadherence Identified: No barriers noted The above information represents the best possible medication history: Yes Additional comments: Medication history obtained from patient and pharmacy fill records in Photos to Photos. Spoke with patient that was tearful but knowledgeable about medications. Reviewed all medications and their doses, strengths, frequencies with the patient and verified against pharmacy records. Changes to medication list documented below. [id number] Medication List Adjustments: - Gabapentin strength, dose, and directions changed to 300 mg TID - per pt in pharmacy records - Levetiracetam dose, and directions changed to 1500 mg BID - per pt takes 6 tablets BID, prescription written for 5 tablets BID - Omeprazole dose and frequency changed to 40 mg every day - per pt takes 2 capsules once daily Medications Added: - Advair 250/50 mcg inhale one puff daily per pt, directions per pharmacy are one puff BID - Multivitamin daily pt takes centrum silver OTC per pt Medicaitons Removed: - erroneous Gabapentin order Short-Term Medications: Cyclobenzaprine 10 mg filled on 01/01 for 7 days supply quantity 21 tablets - pt reports not taking as advised by neurologist - Tamsulosin 0.4 mg - pt previously took for kidney stones. Reports no longer taking Further Clarification Required: - pt reports taking albuterol proair inhaler BID scheduled, states she alternates with advair, advise pt this can be used as needed for SOB Patient is a 30 day readmission: No Patient Interested in Bedside Delivery: No Time Spent Reviewing Patient's Medications: 30 minutes Allergies: ALLERGIES Allergen Reactions - Darvocet A500 [Prop* Shortness of Breath - Penicillins Swelling - Darvocet A500 [Prop* Unknown - Penicillins Unknown Preferred Pharmacy: [facility] [phone] Current FIRE MANAGER Medications: Prior to Admission medications as of 01/04/20 0939 Medication Sig Last Dose Taking gabapentin (NEURONTIN) 300 mg capsule Take 300 mg by mouth three times daily. Yes fluticasone-salmeterol (ADVAIR DISKUS) 250-50 mcg/dose Inhale 1 Puff as instructed twice daily. Yes Multivitamins-Minerals- Lutein (MULTIVITAMIN 50 PLUS) tab Take 1 tablet by mouth once daily. Yes levETIRAcetam (KEPPRA) 250 mg tablet Take 1,500 mg by mouth twice daily. 01/02/2020 at Unknown time Yes melatonin 10 mg tab Take 10 mg by mouth daily at bedtime. 01/02/2020 at Unknown time Yes ALBUTEROL INHALATION Inhale as instructed twice daily. 01/02/2020 at Unknown time Yes fluticasone propionate (FLONASE ALLERGY RELIEF NASAL) Use 1 [place] in the nose twice daily. 01/02/2020 at Unknown time Yes omeprazole (PRILOSEC) 20 mg ORAL capsule Take 40 mg by mouth once daily. 01/02/2020 at Unknown time Yes Zuly Urbina (Inorganic Chemistry Professor) January 04, 2020 9:40 AM MEDICATION RECONCILIATION Patient Name:Josue Jacobs : 1970 Reconciliation: Yes All FIRE MANAGER medications addressed by LIP, Medications intentionally held at admission: advair, omeprazole (nonformulary), proair, multivitamin, flonase and Discussed with LIP, plans to modify dose of Keppra to 1500 mg twice daily based on updated medication history Additional comments: Medication history obtained from patient and pharmacy records by pharmacy customer care specialist as documented above. All medications reviewed and reconciled appropriately. JODI GERBER, PHARMACIST January 04, 2020 10:15 AM Ext: [id number] Normal [facility] PROGRESSon 01-04-2020 PROGRESS HNO ID: [id number] Author: Sonia Acosta) LILIAN Barros Service: Neurosurgery Author Type: Physician Paper Twister Type: Progress Notes Filed: 01/04/2020 4:23 PM Note Text: Neurosurgery Progress Note SERVICE DATE: 01/04/2020 SUBJECTIVE: Pt continues to c/o LBP and in particular, muscle spasms throughout the legs to the toes R>L. She states the spasms are much worse lying down and essentially go away when ambulating. She is also c/o sacral and coccyx pain and her pelvis/hip popping out during ambulation. She is able to ambulate but using a WWR to be safe. OBJECTIVE: Vitals: Temp (24hrs), Av.3 ?C (97.4 ?F), Min:36.1 ?C (96.9 ?F), Max:36.6 ?C (97.9 ?F) BP 115/65 Pulse 74 Temp 36.4 ?C (97.6 ?F) (Oral) Resp 18 Ht 175.3 cm (5' 9) Wt 100.2 kg (221 lb) SpO2 96% BMI 32.64 kg/m? O2 Therapy: Room Air IANDO: Date 01/03/20699 - 01/04/2065801/04/20699 - 01/05/20 0659 Shift 0291-2716 6795-9512 2356-9721 24 Hour Total 9748-9588 2660-9222 8068-4710 24 Hour Total INTAKE Shift Total OUTPUT Urine 100 504 5293 2900 750 750 Void (ml) 1400 1400 Output ( Indwelling Urinary Catheter 01/03/20 0325 Admission to Hospital Rodriguez 16 Fr) 429 834 4133 750 750 Shift Total 387 803 7876 2900 750 750 Weight (kg) 100.2 100.2 100.2 100.2 100.2 100.2 100.2 100.2 MEDICATIONS Current Facility-Administered Medications Medication Dose Route Frequency - sodium chloride 0.65 % 2 Denton (AYR, OCEAN) 2 [place]enton EACH NOSTRIL PRN - melatonin 9 mg tab(s) 9 mg ORAL AT BEDTIME - enoxaparin 40 mg injection (LOVENOX) 40 mg SUBCUTANEOUS DAILY - NaCl 0.9% 3-5 mL 3-5 mL INTRAVENOUS q 12 H - ondansetron 4 mg tab(s) (ZOFRAN) 4 mg ORAL q 6 H PRN Or - ondansetron (PF) 4 mg injection (ZOFRAN) 4 mg INTRAVENOUS q 6 H PRN - dexamethasone sodium phosphate 4 mg injection (DECADRON) 4 mg INTRAVENOUS q 6 H - pantoprazole DR 40 mg tab(s) (PROTONIX) 40 mg ORAL DAILY (6 AM) - dextrose 40 % 15 g 15 g ORAL PRN Or - glucagon 1 mg injection (GLUCAGEN) 1 mg INTRAMUSCULAR PRN Or - dextrose 50% in water 25 mL syringe 12.5 g INTRAVENOUS PRN - insulin lispro pen (rapid acting) (HumaLOG KWIKPEN) SUBCUTANEOUS w MEALS - albuterol 2.5 mg /3 mL (0.083 %) 2.5 mg (PROVENTIL) 2.5 mg INHALATION q 6 H PRN - magnesium oxide 400 mg tab(s) (MAG-OX) 400 mg ORAL BID - lidocaine 4 % 1 Patch (SALONPAS) 1 Patch TRANSDERMAL DAILY And - lidocaine patch - REMOVE OTHER AT BEDTIME And - lidocaine - VERIFY PATCH OTHER q 8 H - gabapentin 300 mg cap(s) (NEURONTIN) 300 mg ORAL TID - morphine 2-4 mg injection 2-4 mg INTRAVENOUS q 3 H PRN - oxyCODONE IR 5-10 mg tab(s) (ROXICODONE) 5-10 mg ORAL q 4 H PRN Labs: Recent Labs 01/04/20 1010 01/03/20 0930 01/03/20 0429 NA 137 -- 138 K 4.2 -- 4.2 CHLOR 100 -- 103 CO2 21* -- 23 BUN 17 -- 17 CREAT 0.67 -- 0.69 GLUC 194* -- 91 ANION 16 -- 12 CA 9.1 -- 9.0 MG -- 2.2 -- ALB -- -- 4.5 AST -- -- 27 ALT -- -- 30 ALKPHOS -- -- 121 TBILI -- -- 0.2 WBC -- -- 10.75* HB -- -- 14.6 HCT -- -- 44.7 PLT -- -- 292 Exam: GENERAL: mild distress, Alert, pleasant, initially in bed then got up easily to ambulate, still with rodriguez cath NEURO: orientedx3; speech clear and fluent; ambulates steadily but visibly has pelvic shift to the left?? Strength 5/5 BLE - some resistance to exam 2/2 pain HEENT: normocephalic, atraumatic LUNGS: Unlabored breathing ABDOMEN: Soft, non-tender, obese EXTREMITIES: No deformities SKIN: Skin color, texture, turgor normal, No rashes or lesions ASSESSMENT AND PLAN: Active Hospital Problems Diagnosis Date Noted - Severe back pain 01/03/2020 49 year old female acute on chronic LBP with spasms - neuro as above - myelogram reviewed by attending - no cauda equina - no surgery indicated at this time - regarding muscle relaxer use: discussed this with Dr. Hare and Dr. Leon and both agree muscle relaxer is NOT contraindicated following coiling (and 8yrs out especially) and may be prescribed - this was relayed to Dr. Valderrama - regarding sacral/coccyx/pelvic issue: rec orthopedic evaluation - pt with hx of coiled basilar aneurysm and was lost to follow up. Pt needs to f/u with Dr. Leon in the next few weeks for further evaluation SIGNATURE: LILIAN Rodríguez PATIENT NAME: Ortiz Jacobs DATE: January 04, 2020 TIME: 2:46 PM Pager: [phone] [facility] PROGRESS HNO ID: [id number] Author: Janeth Valderrama Service: Pain Management Author Type: Physician Type: Progress Notes Filed: 01/04/2020 1:12 PM Note Text: Name: ORTIZ JACOBS Age: [age] year old PAIN MANAGEMENT: Back Pain Pain Description: Patient remains anxious, tearful, ongoing low back pain and complaints of charley horse sensation bilateral lower extremities; feels knots in her legs and groin area 24H Pain Regimen: Decadron 4 mg IV ?4 Gabapentin 300 mg ?1, 400 mg ?1 Morphine 4 mg IV ?4 Oxycodone 5 mg ?1, 10 mg ?1 Lidoderm patch Interval HPI: Able overnight, needs bowel movement. Complained of right foot pain; x-ray negative 01/02 CT Myelogram L3?for small posterior central disc extrusion with caudal migration causing moderate narrowing of thecal sac left greater than right neural foraminal narrowing. Postop changes L4-S1. Thoracic spine T10-T11 small right paracentral disc protrusion Cervical spine mild multilevel cervical degenerative disc disease. Postsurgical changes at C6-C7 Subjective HPI: 49-year-old female with history of seizures, prior L4-S1 fusion in 2015 at [facility], prior C6-C7 fusion 2006, basilar artery aneurysm status post coiling 2011, stroke 2010 and GERD, gastroparesis status post gastric pacemaker presented 01/02 from [facility] transfer with intractable back pain, urinary retention and severe bilateral lower extremity pain and spasm. Patient is followed by Dr. Robledo in [place] for pain management; last SI joint injection 12/28. CT myelogram pending; patient unable to have MRI due to gastric pacemaker. Of note, patient was hospitalized twice October, at [facility] for L3-L4 and T10-T11 disc herniation with radiculopathy. Outpatient PT, Decadron therapy and spine follow-up recommended. She re-presented with left arm numbness and facial droop; imaging negative for acute stroke. Symptoms felt to be secondary to migraine. In review of records during that hospitalization, there is concern for suspicious drug-seeking behavior as documented in the chart (including requesting opiate prescription at discharge despite recent filling prescription Percocet No. 100, and requesting IV opiates) Patient lives alone. She denies tobacco, alcohol or illicit meds. Home pain regimen includes gabapentin 300 mg 3 times daily. She no longer takes daily opiates. She previously had been on long-acting opiates last year. 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 11/11/2019 Gabapentin 300 MG Capsule 90.00 30 Eu Pet [id number] [id number] [place] 09/26/2019 2 09/25/2019 Oxycodone-Acetaminophen 5-325 12.00 3 Al Abby [id number] [facility] ([id number] 0 30.00 [place] 09/19/2019 2 09/19/2019 Oxycodone-Acetaminophen 5-325 15.00 3 Do Kol [id number] [facility] ([id number]) 0 37.50 [place] 08/31/2019 2 08/31/2019 Gabapentin 300 MG Capsule 90.00 30 Ay Bas [id number] [facility] ([id number] 0 [place] 07/15/2019 2 07/15/2019 Gabapentin 300 MG Capsule 90.00 30 Ay Bas [id number] [facility] ([id number] 0 [place] 06/03/2019 2 05/30/2019 Diazepam 5 MG Tablet 10.00 4 To Le [id number] [facility] ([id number]) 0 1.25 LME [place] 06/03/2019 2 05/30/2019 Oxycodone-Acetaminophen 5-325 12.00 3 To Le [id number] [facility] ([id number]) 0 30.00 [place]ME [place] 06/03/2019 2 06/03/2019 Gabapentin 300 MG Capsule 60.00 20 Je B [id number] [facility] ([id number]) 0 Medicare Current Facility-Administered Medications Medication Dose Route Frequency Provider Last Rate Last Dose - levETIRAcetam (KEPPRA) tab(s) 1,500 mg 1,500 mg ORAL BID Ching Horta - sodium chloride 0.65 % 2 [place]enton (AYR, OCEAN) 2 [place] EACH NOSTRIL PRN Ching Horta - senna-docusate 8.6-50 mg 2 tablet (SENNA-S) 2 tablet ORAL BID Janeth K Scantling - [START ON 01/05/2020] polyethylene glycol 3350 17 g packet (MIRALAX, GLYCOLAX) 17 g ORAL DAILY Janeth K Scantling - melatonin 9 mg tab(s) 9 mg ORAL AT BEDTIME [facility] 9 mg at 01/03/20 2158 - enoxaparin 40 mg injection (LOVENOX) 40 mg SUBCUTANEOUS DAILY [facility] 40 mg at 01/04/20 0801 - NaCl 0.9% 3-5 mL 3-5 mL INTRAVENOUS q 12 H [facility] 3 mL at 01/04/20 0900 - ondansetron 4 mg tab(s) (ZOFRAN) 4 mg ORAL q 6 H PRN [facility] [facility] 4 mg at 01/03/20 1645 Or - ondansetron (PF) 4 mg injection (ZOFRAN) 4 mg INTRAVENOUS q 6 H PRN [facility] - dexamethasone sodium phosphate 4 mg injection (DECADRON) 4 mg INTRAVENOUS q 6 H [facility] 4 mg at 01/04/20 1212 - pantoprazole DR 40 mg tab(s) (PROTONIX) 40 mg ORAL DAILY (6 AM) [facility] 40 mg at 01/04/20 0619 - dextrose 40 % 15 g 15 g ORAL PRN [facility] Or - glucagon 1 mg injection (GLUCAGEN) 1 mg INTRAMUSCULAR PRN [facility] Or - dextrose 50% in water 25 mL syringe 12.5 g INTRAVENOUS PRN [facility] - insulin lispro pen (rapid acting) (HumaLOG KWIKPEN) SUBCUTANEOUS w MEALS [facility] 2 Units at 01/04/20 0802 - albuterol 2.5 mg /3 mL (0.083 %) 2.5 mg (PROVENTIL) 2.5 mg INHALATION q 6 H PRN [facility] - magnesium oxide 400 mg tab(s) (MAG-OX) 400 mg ORAL BID Ivy Rao 400 mg at 01/04/20 1001 - lidocaine 4 % 1 Patch (SALONPAS) 1 Patch TRANSDERMAL DAILY Ivy Rao 1 Patch at 01/04/20 0802 And - lidocaine patch - REMOVE OTHER AT BEDTIME Ivy Rao And - lidocaine - VERIFY PATCH OTHER q 8 H Ivy Rao - gabapentin 300 mg cap(s) (NEURONTIN) 300 mg ORAL TID Janeth K Scantling 300 mg at 01/04/20 1212 - morphine 2-4 mg injection 2-4 mg INTRAVENOUS q 3 H PRN Janeth K Scantling 4 mg at 01/04/20 0019 - oxyCODONE IR 5-10 mg tab(s) (ROXICODONE) 5-10 mg ORAL q 4 H PRN Janeth K Scantling 10 mg at 01/04/20 1000 gabapentin (NEURONTIN) 300 mg capsule, Take 300 mg by mouth three times daily., Disp: , Rfl: fluticasone-salmeterol (ADVAIR DISKUS) 250-50 mcg/dose, Inhale 1 Puff as instructed twice daily., Disp: , Rfl: Multivitamins-Minerals- Lutein (MULTIVITAMIN 50 PLUS) tab, Take 1 tablet by mouth once daily., Disp: , Rfl: levETIRAcetam (KEPPRA) 250 mg tablet, Take 1,500 mg by mouth twice daily. , Disp: , Rfl: , 01/02/2020 at Unknown time melatonin 10 mg tab, Take 10 mg by mouth daily at bedtime., Disp: , Rfl: , 01/02/2020 at Unknown time ALBUTEROL INHALATION, Inhale as instructed twice daily., Disp: , Rfl: , 01/02/2020 at Unknown time fluticasone propionate (FLONASE ALLERGY RELIEF NASAL), Use 1 [place] in the nose twice daily. , Disp: , Rfl: , 01/02/2020 at Unknown time omeprazole (PRILOSEC) 20 mg ORAL capsule, Take 40 mg by mouth once daily. , Disp: , Rfl: 0, 01/02/2020 at Unknown time Social History Tobacco Use - Smoking status: Current Every Day Smoker Packs/day: 0.50 Years: 10.00 Pack years: 5.00 Types: Cigarettes Substance Use Topics - Alcohol use: Yes Comment: Occassionally - Drug use: No FAMILY HISTORY Problem Relation Age of Onset - Arthritis Father - Coronary Artery Disease Father - Hypertension Father - Lipids Father - Arthritis Mother - Diabetes Mother - Hypertension Mother - Psychiatry Brother bipolar - Cancer Sister - Headache Sister - Psychiatry Sister bipolar No past surgical history on file. ROS: All of the following reviewed and negative except as noted below: GENERAL: no fever, chills, sweats, weight loss,+ fatigue, generalized weakness HEENT: no headache, vision changes, eye discomfort, hearing change, ear discomfort, sinus pain, nasal discharge or congestion, oral lesions, soreness, dental problem NECK: no adenopathy, discomfort, change in ROM CHEST: no shortness of breath, dyspnea on exertion, wheezing, cough, sputum production or chest pain HEART: no chest pain, palpitations, syncope ABDOMEN: no nausea, vomiting, constipation, diarrhea, abdominal pain : no dysuria, urgency, frequency, history of stones, incontinence NEURO: no confusion or alteration in consciousness, slurred speech, seizure, see HPI EXTREMITIES: no new pain, edema, change in ROM HEME: no new adenopathy, bruises, petechiae PSYCH: no depression, anxiety, agitation PAIN PSYCHIATRIC EXAM: GENERAL: alert, oriented to person, place, time JUDGMENT AND INSIGHT: intact APPEARANCE: neatly groomed DEMEANOR: coooperative, not hostile, mistrustful, preoccupied, or demanding ACTIVITY: normal, not hyperactive or hypoactive, no tremors, tics EYE CONTACT: normal SPEECH: normal, rate, volume, articulation, coherence, spontaneity MOOD: anxious IDEATION: deferred MEMORY: intact PHYSICAL EXAMINATION: GENERAL: well nourished and developed; anxious, tearful,; alert and oriented x 3; intact judgement and insight HEENT: no evidence of trauma; cranial nerves intact; eyes clear EOMI; no hearing deficits apparent; nasal passages unremarkable; throat and mucous membranes clear NECK: supple without lymphadenopathy; no JVD; no thyromegaly CHEST: clear bilaterally to auscultation; normal chest movement; no rales or rhonchi HEART: regular rate and rhythm, normal S1 and S2, no murmurs, clicks, rubs, or gallops ABDOMEN: soft; nondistended; bowel sounds present; no hepatomegaly; no splenomegaly; no tenderness EXTREMITIES: no evidence of clubbing; no cyanosis; no deformity; no joint effusion; no edema NEURO: cranial nerves intact; no confusion; no tremor; sensorium normal; bilateral lower extremity weakness and pain with movement bilateral lower extremities SKIN: no rash; no skin breakdown; no decubitus lesions HEME: no bruising; no adenopathy PSYCH: no evidence of depression; + anxiety; no agitation; no apparent hallucinations BP 115/65 Pulse 74 Temp 36.4 ?C (97.6 ?F) (Oral) Resp 18 Ht 175.3 cm (5' 9) Wt 100.2 kg (221 lb) SpO2 96% BMI 32.64 kg/m? BMI 32.64 kg/(m2) Date 01/02/20699 - 01/03/20 0659(Not Admitted) 01/03/20699 - 01/04/20 0659 Shift 8795-6974 0030-1226 3236-0856 24 Hour Total 4666-3642 0542-9106 0024-2579 24 Hour Total INTAKE Shift Total OUTPUT Urine 1300 1300 Output ( Indwelling Urinary Catheter 01/03/20 0325 Admission to [facility] 16 Fr) 1300 1300 Shift Total 1300 1300 Weight (kg) 100.2 100.2 100.2 100.2 100.2 100.2 ABNORMAL/NEW FINDINGS: NONE RADIOLOGY/DIAGNOSTICS: LABORATORY: CBC: No results for input(s): WBC, RBC, HB, HCT, PLT, MCV, MCH, MPV, RDW in the last 24 hours. CMP: Recent Labs 01/04/20 1010 NA 137 K 4.2 CHLOR 100 CO2 21* BUN 17 CREAT 0.67 GLUC 194* CA 9.1 ANION 16 Heme: No results for input(s): RETICP, ABSRETIC, LD, RADHA, FE, TIBC, TRANSFERSAT in the last 24 hours. 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] Severe Back Pain PLAN: Patient with prior lumbar fusion presents with intractable low back pain, bilateral lower extremity pain and weakness with urinary retention Appreciate neurosurgery evaluation; await their interpretation of CT myelogram yesterday Patient hospitalized 1 year ago at [facility] for similar symptoms; chart reviewed No longer prescribed regular opiates Gabapentin 300 mg 3 times daily Change morphine 2-4 mg IV every 3 hours as needed breakthrough pain Decadron 4 mg IV every 6 hours per Neurosurgery Lidoderm patch trial Discontinue morphine IV Oxycodone 5-10 mg every 4 hours as needed moderate to severe pain Patient states intolerant of all muscle relaxants and was told not to take them after aneurysm rupture with coiling Senna S twice daily. Change MiraLAX daily Will follow with you. Follow-up with Dr. Robledo in [place] after discharge Discussed with RN Janeth Valderrama MD [facility] PROGRESS HNO ID: [id number] Author: Ching Horta Service: Hospital Medicine Author Type: Physician Type: Progress Notes Filed: 01/04/2020 10:09 AM Note Text: DEPARTMENT OF HOSPITAL MEDICINE PROGRESS NOTE SERVICE DATE: 01/04/2020 SERVICE TIME: 10:01 AM Hospital Medicine/Primary Attending: Ching Horta, DO NIGHT AND WEEKEND COVERAGE: After 7pm, please call cross cover pager #[phone] Subjective INTERVAL HPI: Patient seen and examined. Complaining of ongoing back and leg cramping that has been present since she had joint injection on 12/27. Reports that the pain is getting worse. Also complaining of R foot pain and bone pain. She is tearful and crying MEDICATIONS: Reviewed Objective PHYSICAL EXAM: BP 115/65 Pulse 74 Temp (Src) 97.6 (Oral) Resp 18 Ht 5' 9 (1.75m) Wt 221 lb (100.2kg) SpO2 95% BMI 32.62 kg/(m2). O2 Therapy: Room Air Physical Exam Performed Constitutional - Vitals as above, not in acute distress Resp - Clear to auscultate both sides, no wheezes, crackles or rales, no labored breathing CVS- RRR. 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 Assessment/Plan #ongoing low back pain with bilateral lower extremity pain R>L with concern for urinary retention-has rodriguez changed Thursday per patient, being followed by NS and pain mgmt, pending myelogram, continue pain control, check ck, repeat BMP, mag overnight WNL, on decadron #hyperglycemia-contiue accuchecks and SSI #R foot pain-check xray #periphearl neuropathy-continue gabapenting #hx cauda equina #GERD-continue PPI #epilepsy-continue keppra #pyuria-will send for culture Medication and Non-Pharmacologic VTE Prophylaxis/Anticoagula nts Anticoagulant AND Antiplatelet Medications (From admission, onward) Start Dose Route Frequency Ordered Stop 01/03/20 0900 enoxaparin 40 mg injection (LOVENOX) (Medical Risk Categories) 40 mg SUBCUTANEOUS DAILY 01/03/20 0343 -- 01/04/20 0945 pneumatic compression stockings ([place]) 01/03/20 0345 vte non-pharmacologic prophylaxis - none indicated ([place]) VTE Prophylaxis: VTE prophylaxis appropriate Disposition: To be determined Plan of care discussed with: Provider, RN, Patient SIGNATURE: Ching Horta DO PATIENT NAME: Ortiz Jacobs DATE: January 04, 2020 TIME: 10:01 AM PAGER/CONTACT #: [phone] Normal [facility] XR FOOT 3V AP/LAT/OBL RTon 0 01-04-2020 XR FOOT 3V AP/LAT/OBL RT * * *Final Report* * * DATE OF EXAM: Jan 04 2020 10:50AM [id number] - XR FOOT 3V AP/LAT/OBL RT / PROCEDURE REASON: Bone pain, foot * * * * Physician Interpretation * * * * EXAM TITLE: XR FOOT 3V AP/LAT/OBL RT DATE: 01/04/2020 INDICATION: Right foot pain. No known trauma. COMPARISON: None. AP, oblique, lateral views of the right foot show no fracture. Normal alignment. No bone erosion or bone destruction. IMPRESSION: No acute findings radiographically. Radio Station Engineer: BINTA Transcribe Date/Time: Jan 04 2020 11:13A Dictated by : AGUSTINA CLAY MD This examination was interpreted and the report reviewed and electronically signed by: AGUSTINA CLAY MD on Jan 04 2020 11:14AM [facility] Normal [facility] XR PELVIS 1V APon 01-04-2020 XR PELVIS 1V AP * * *Final Report* * * DATE OF EXAM: Jan 04 2020 5:08PM [id number] - XR PELVIS 1V AP / PROCEDURE REASON: Pain, pelvis * * * * Physician Interpretation * * * * EXAMINATION: XR PELVIS 1V AP CLINICAL HISTORY: PT STATES SINCE SHE GOT HER PAIN SHOT ON THURSDAY SHE HASNT BEEN ABLE TO WALK WITHOUT HER LEFT HIP POPPING OUT. PT ALSO C/O NOT BEING ABLE TO URINATE BY HERSELF SINCE. Technique: XR PELVIS 1V AP -- NOT APPLICABLE with 1 views on 2 images Comparison: None RESULT: No fracture or dislocation. Bilateral hip joints appear maintained. SI joints and pubic symphysis are maintained. Postsurgical changes lower lumbar spine with pako and screw fixation. Left neural stimulator battery pack and leads. IMPRESSION: No acute osseous findings. Radio Station Engineer: PSCB Transcribe Date/Time: Jan 04 2020 5:12P Dictated by : BELINDA GOODSON MD This examination was interpreted and the report reviewed and electronically signed by: BELINDA GOODSON MD on Jan 04 2020 5:13PM [facility] BRIEF OP NOTon 01-03-2020 BRIEF OP NOT HNO ID: [id number] Author: Reuben Khan Service: Interventional Radiology Author Type: Nurse Practitioner Type: Brief Op Note Filed: 01/03/2020 2:54 PM Note Text: BRIEF OP NOTE LOG ID: [id number] Surgery/Procedure Date: 01/03/2020 Incision/Procedure Start Time: 1435 Incision Close/Procedure End Time: 1450 Surgeon(s)/Proceduralis t(s) and Paper Twister(s): Surgeon(s) and Role: * Reuben Khan - Primary Procedure(s): Fluoroscopy guided injection of omnipaque for myelogram with local anesthetic Anesthesia: Local 4 ml 2% lidocaine Findings: L4/5 midline, free flow clear CSF obtained, IT injection of 12 ml omnipaque 300 Estimated Blood Loss: 0 ml Specimens: None Complications: None Pre-Op/Pre-Procedure Diagnosis: spinal stenosis Post-Op/Post-Procedure Diagnosis: spinal stenosis SIGNATURE: Reuben Khan APRN.CNP PATIENT NAME: Ortiz Jacobs DATE: January 03, 2020 TIME: 2:51 PM PAGER/CONTACT #: [phone] [facility] CONSULTon 01-03-2020 CONSULT HNO ID: [id number] Author: Janeth Valderrama Service: Pain Management Author Type: Physician Type: Consults Filed: 01/03/2020 2:40 PM Note Text: Name: ORTIZ JACOBS Age: [age] year old PAIN MANAGEMENT: Back Pain Pain Description: Patient complains of sharp stabbing back pain anytime she moves; also complaining of charley horse throughout her lower extremities particularly her bilateral calves and groin 24H Pain Regimen: Decadron 4 mg IV every 6 hours ?2 Gabapentin 40 mg 3 times a day ?1 Dilaudid 2 mg IV ?1 at 0637 Morphine 4 mg IV every 2 hours when necessary ?2 Lidoderm patch Interval HPI: Subjective HPI: 49-year-old female with history of seizures, prior L4-S1 fusion in 2015 at [facility], prior C6-C7 fusion 2006, basilar artery aneurysm status post coiling 2011, stroke 2010 and GERD, gastroparesis status post gastric pacemaker presented 01/02 from [place] transfer with intractable back pain, urinary retention and severe bilateral lower extremity pain and spasm. Patient is followed by Dr. Robledo in [place] for pain management; last SI joint injection 12/28. CT myelogram pending; patient unable to have MRI due to gastric pacemaker. Of note, patient was hospitalized twice October, at [facility] for L3-L4 and T10-T11 disc herniation with radiculopathy. Outpatient PT, Decadron therapy and spine follow-up recommended. She re-presented with left arm numbness and facial droop; imaging negative for acute stroke. Symptoms felt to be secondary to migraine. In review of records during that hospitalization, there is concern for suspicious drug-seeking behavior as documented in the chart (including requesting opiate prescription at discharge despite recent filling prescription Percocet No. 100, and requesting IV opiates) Patient lives alone. She denies tobacco, alcohol or illicit meds. Home pain regimen includes gabapentin 300 mg 3 times daily. She no longer takes daily opiates. She previously had been on long-acting opiates last year. 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 Gabapentin 300 MG Capsule 90.00 30 Eu Pet [id number] [id number] [place] 09/26/2019 2 09/25/2019 Oxycodone-Acetaminophen 5-325 12.00 3 Al Abby [id number] [facility] ([id number] 0 30.00 [place] 09/19/2019 2 09/19/2019 Oxycodone-Acetaminophen 5-325 15.00 3 Do Kol [id number] [facility] ([id number] 0 37.50 [place] 08/31/2019 2 08/31/2019 Gabapentin 300 MG Capsule 90.00 30 Ay Bas [id number] [facility] ([id number] [place] 07/15/2019 2 07/15/2019 Gabapentin 300 MG Capsule 90.00 30 Ay Bas [id number] [facility] ([id number] [place] 06/03/2019 2 05/30/2019 Diazepam 5 MG Tablet 10.00 4 To Le [id number] [facility] ([id number]) 0 1.25 LME [place] 06/03/2019 2 05/30/2019 Oxycodone-Acetaminophen 5-325 12.00 3 To Le [id number] [facility] ([id number]) 0 30.00 [place] 06/03/2019 2 06/03/2019 Gabapentin 300 MG Capsule 60.00 20 Je B [id number] [facility] ([id number]) 0 Medicare Current Facility-Administered Medications Medication Dose Route Frequency Provider Last Rate Last Dose - gabapentin (NEURONTIN) cap(s) 400 mg 400 mg ORAL TID Franniear Gonzalez 400 mg at 01/03/20 0906 - melatonin 9 mg tab(s) 9 mg ORAL AT BEDTIME [facility] - enoxaparin 40 mg injection (LOVENOX) 40 mg SUBCUTANEOUS DAILY [facility] - NaCl 0.9% 3-5 mL 3-5 mL INTRAVENOUS q 12 H [facility] 3 mL at 01/03/20 0400 - ondansetron 4 mg tab(s) (ZOFRAN) 4 mg ORAL q 6 H PRN [facility] 4 mg at 01/03/20 0637 Or - ondansetron (PF) 4 mg injection (ZOFRAN) 4 mg INTRAVENOUS q 6 H PRN [facility] - dexamethasone sodium phosphate 4 mg injection (DECADRON) 4 mg INTRAVENOUS q 6 H [facility] 4 mg at 01/03/20 0906 - pantoprazole DR 40 mg tab(s) (PROTONIX) 40 mg ORAL DAILY (6 AM) [facility] 40 mg at 01/03/20 0637 - dextrose 40 % 15 g 15 g ORAL PRN [facility] Or - glucagon 1 mg injection (GLUCAGEN) 1 mg INTRAMUSCULAR PRN [facility] Or - dextrose 50% in water 25 mL syringe 12.5 g INTRAVENOUS PRN [facility] - insulin lispro pen (rapid acting) (HumaLOG KWIKPEN) SUBCUTANEOUS w MEALS [facility] - albuterol 2.5 mg /3 mL (0.083 %) 2.5 mg (PROVENTIL) 2.5 mg INHALATION q 6 H PRN [facility] - magnesium oxide 400 mg tab(s) (MAG-OX) 400 mg ORAL BID Ivy Rao 400 mg at 01/03/20 0906 - lidocaine 4 % 1 Patch (SALONPAS) 1 Patch TRANSDERMAL DAILY Ivy Rao 1 Patch at 01/03/20 0905 And - lidocaine patch - REMOVE OTHER AT BEDTIME Ivy Rao And - lidocaine - VERIFY PATCH OTHER q 8 H Ivy Rao - morphine 4 mg injection 4 mg INTRAVENOUS q 2 H PRN Ivy Rao 4 mg at 01/03/20 0907 - levETIRAcetam 500 mg tab(s) (KEPPRA) 500 mg ORAL DAILY (8 AM) Ivy Rao 500 mg at 01/03/20 0905 - levETIRAcetam 500 mg tab(s) (KEPPRA) 500 mg ORAL DAILY (8 PM) Ivy Rao levetiracetam (KEPPRA ORAL), Take 300 mg by mouth three times daily., Disp: , Rfl: melatonin 10 mg tab, Take 10 mg by mouth daily at bedtime., Disp: , Rfl: ALBUTEROL INHALATION, Inhale as instructed twice daily., Disp: , Rfl: fluticasone propionate (FLONASE ALLERGY RELIEF NASAL), Use in the nose twice daily., Disp: , Rfl: gabapentin 100 mg ORAL capsule, Take 1 capsule by mouth three times daily. (Patient taking differently: Take 400 mg by mouth three times daily. ), Disp: 90 capsule, Rfl: 3 omeprazole (PRILOSEC) 20 mg ORAL capsule, Take 1 capsule by mouth twice daily., Disp: , Rfl: 0 Social History Tobacco Use - Smoking status: Current Every Day Smoker Packs/day: 0.50 Years: 10.00 Pack years: 5.00 Types: Cigarettes Substance Use Topics - Alcohol use: Yes Comment: Occassionally - Drug use: No FAMILY HISTORY Problem Relation Age of Onset - Arthritis Father - Coronary Artery Disease Father - Hypertension Father - Lipids Father - Arthritis Mother - Diabetes Mother - Hypertension Mother - Psychiatry Brother bipolar - Cancer Sister - Headache Sister - Psychiatry Sister bipolar No past surgical history on file. ROS: All of the following reviewed and negative except as noted below: GENERAL: no fever, chills, sweats, weight loss,+ fatigue, generalized weakness HEENT: no headache, vision changes, eye discomfort, hearing change, ear discomfort, sinus pain, nasal discharge or congestion, oral lesions, soreness, dental problem NECK: no adenopathy, discomfort, change in ROM CHEST: no shortness of breath, dyspnea on exertion, wheezing, cough, sputum production or chest pain HEART: no chest pain, palpitations, syncope ABDOMEN: no nausea, vomiting, constipation, diarrhea, abdominal pain : no dysuria, urgency, frequency, history of stones, incontinence NEURO: no confusion or alteration in consciousness, slurred speech, seizure, see HPI EXTREMITIES: no new pain, edema, change in ROM HEME: no new adenopathy, bruises, petechiae PSYCH: no depression, anxiety, agitation PAIN PSYCHIATRIC EXAM: GENERAL: alert, oriented to person, place, time JUDGMENT AND INSIGHT: intact APPEARANCE: neatly groomed DEMEANOR: coooperative, not hostile, mistrustful, preoccupied, or demanding ACTIVITY: normal, not hyperactive or hypoactive, no tremors, tics EYE CONTACT: normal SPEECH: normal, rate, volume, articulation, coherence, spontaneity MOOD: anxious IDEATION: deferred MEMORY: intact PHYSICAL EXAMINATION: GENERAL: well nourished and developed; anxious, tearful, appears uncomfortable; alert and oriented x 3; intact judgement and insight HEENT: no evidence of trauma; cranial nerves intact; eyes clear EOMI; no hearing deficits apparent; nasal passages unremarkable; throat and mucous membranes clear NECK: supple without lymphadenopathy; no JVD; no thyromegaly CHEST: clear bilaterally to auscultation; normal chest movement; no rales or rhonchi HEART: regular rate and rhythm, normal S1 and S2, no murmurs, clicks, rubs, or gallops ABDOMEN: soft; nondistended; bowel sounds present; no hepatomegaly; no splenomegaly; no tenderness EXTREMITIES: no evidence of clubbing; no cyanosis; no deformity; no joint effusion; no edema NEURO: cranial nerves intact; no confusion; no tremor; sensorium normal; bilateral lower extremity weakness and pain with movement bilateral lower extremities SKIN: no rash; no skin breakdown; no decubitus lesions HEME: no bruising; no adenopathy PSYCH: no evidence of depression; + anxiety; no agitation; no apparent hallucinations BP 155/89 Pulse 97 Temp 36.6 ?C (97.9 ?F) (Oral) Resp 18 Ht 175.3 cm (5' 9) Wt 100.2 kg (221 lb) SpO2 96% BMI 32.64 kg/m? BMI 32.64 kg/(m2) Date 01/02/20 07 - 01/03/20 0659(Not Admitted) 01/03/20 07 - 01/04/20 0659 Shift 0569-7668 1905-5909 3330-9907 24 Hour Total 6284-5275 5537-2364 7379-4019 24 Hour Total INTAKE Shift Total OUTPUT Urine 1300 1300 Output ( Indwelling Urinary Catheter 01/03/20 0325 Admission to [facility] 16 Fr) 1300 1300 Shift Total 1300 1300 Weight (kg) 100.2 100.2 100.2 100.2 100.2 100.2 ABNORMAL/NEW FINDINGS: NONE RADIOLOGY/DIAGNOSTICS: LABORATORY: CBC: Recent Labs 01/03/20428 WBC 10.75* RBC 4.51 HB 14.6 HCT 44.7 PLT 292 MCV 99.1* MCH 32.4* MPV 10.4 RDW 13.2 CMP: Recent Labs 01/03/20428 NA 138 K 4.2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 back pain, bilateral lower extremity pain, urinary retention. -CT Myelogram pending. Patient cannot have MRI due to gastric pacer placement. Will await results for definitive plan. -Urinary retention has been going on for 3-4 months. Patient with history of kidney stones. Will order UA as preliminary step. -Bilateral lower extremity ultrasound to rule out DVT -Consult to pain management for pain control. Patient sees a pain management provider as an outpatient. -Medical management per primary. 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 History of chronic LBP and urinary problems Presents to OSH with acute exacerbation LBP/ saddle anesthesia/ urinary retention and tx to [facility] for further work up. Exam is largely pain limited Myelogram reviewed - small disc protrusion at L3-4 above prior surgery but no significant compression of neural structures. Xrays - no evidence of subluxation. I dont have a good explanation for these worsening symptoms - no evidence of a structural lesion to explain symptoms, no surgical indications as a result. Maren Fuentes MD Previous Version Janeth Valderrama MD 01/03/2020 2:40 PM Signed Name: ORTIZ JACOBS Age: [age] year old PAIN MANAGEMENT: Back Pain Pain Description: Patient complains of sharp stabbing back pain anytime she moves; also complaining of charley horse throughout her lower extremities particularly her bilateral calves and groin 24H Pain Regimen: Decadron 4 mg IV every 6 hours ?2 Gabapentin 40 mg 3 times a day ?1 Dilaudid 2 mg IV ?1 at 0637 Morphine 4 mg IV every 2 hours when necessary ?2 Lidoderm patch Interval HPI: Subjective HPI: 49-year-old female with history of seizures, prior L4-S1 fusion in 2015 at [facility], prior C6-C7 fusion 2006, basilar artery aneurysm status post coiling 2011, stroke 2010 and GERD, gastroparesis status post gastric pacemaker presented 01/02 from [place] transfer with intractable back pain, urinary retention and severe bilateral lower extremity pain and spasm. Patient is followed by Dr. Robledo in [place] for pain management; last SI joint injection 12/28. CT myelogram pending; patient unable to have MRI due to gastric pacemaker. Of note, patient was hospitalized twice October, at [facility] for L3-L4 and T10-T11 disc herniation with radiculopathy. Outpatient PT, Decadron therapy and spine follow-up recommended. She re-presented with left arm numbness and facial droop; imaging negative for acute stroke. Symptoms felt to be secondary to migraine. In review of records during that hospitalization, there is concern for suspicious drug-seeking behavior as documented in the chart (including requesting opiate prescription at discharge despite recent filling prescription Percocet No. 100, and requesting IV opiates) Patient lives alone. She denies tobacco, alcohol or illicit meds. Home pain regimen includes gabapentin 300 mg 3 times daily. She no longer takes daily opiates. She previously had been on long-acting opiates last year. 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 Gabapentin 300 MG Capsule 90.00 30 Eu Pet [id number] [id number] [place] 09/26/2019 2 09/25/2019 Oxycodone-Acetaminophen 5-325 12.00 3 Al Abby [id number] [facility] ([id number] 0 30.00 [place] 09/19/2019 2 09/19/2019 Oxycodone-Acetaminophen 5-325 15.00 3 Do Kol [id number] [facility] ([id number] 0 37.50 [place] 08/31/2019 2 08/31/2019 Gabapentin 300 MG Capsule 90.00 30 Ay Bas [id number] [facility] ([id number] [place] 07/15/2019 2 07/15/2019 Gabapentin 300 MG Capsule 90.00 30 Ay Bas [id number] [facility] ([id number] [place] 06/03/2019 2 05/30/2019 Diazepam 5 MG Tablet 10.00 4 To Le [id number] [facility] ([id number]) 0 1.25 LME [place] 06/03/2019 2 05/30/2019 Oxycodone-Acetaminophen 5-325 12.00 3 To Le [id number] [facility] ([id number]) 0 30.00 [place] 06/03/2019 2 06/03/2019 Gabapentin 300 MG Capsule 60.00 20 Je B [id number] [facility] ([id number]) 0 Medicare Current Facility-Administered Medications Medication Dose Route Frequency Provider Last Rate Last Dose - gabapentin (NEURONTIN) cap(s) 400 mg 400 mg ORAL TID Nauhar Gonzalez 400 mg at 01/03/20 0906 - melatonin 9 mg tab(s) 9 mg ORAL AT BEDTIME Narosangela Gonzalez - enoxaparin 40 mg injection (LOVENOX) 40 mg SUBCUTANEOUS DAILY Narosangela Gonzalez - NaCl 0.9% 3-5 mL 3-5 mL INTRAVENOUS q 12 H Naar Gonzalez 3 mL at 01/03/20 0400 - ondansetron 4 mg tab(s) (ZOFRAN) 4 mg ORAL q 6 H PRN [facility] 4 mg at 01/03/20 0637 Or - ondansetron (PF) 4 mg injection (ZOFRAN) 4 mg INTRAVENOUS q 6 H PRN [facility] - dexamethasone sodium phosphate 4 mg injection (DECADRON) 4 mg INTRAVENOUS q 6 H [facility] 4 mg at 01/03/20 09 - pantoprazole DR 40 mg tab(s) (PROTONIX) 40 mg ORAL DAILY (6 AM) [facility] 40 mg at 01/03/20 0637 - dextrose 40 % 15 g 15 g ORAL PRN [facility] Or - glucagon 1 mg injection (GLUCAGEN) 1 mg INTRAMUSCULAR PRN [facility] Or - dextrose 50% in water 25 mL syringe 12.5 g INTRAVENOUS PRN [facility] - insulin lispro pen (rapid acting) (HumaLOG KWIKPEN) SUBCUTANEOUS w MEALS [facility] - albuterol 2.5 mg /3 mL (0.083 %) 2.5 mg (PROVENTIL) 2.5 mg INHALATION q 6 H PRN [facility] - magnesium oxide 400 mg tab(s) (MAG-OX) 400 mg ORAL BID Viy Rao 400 mg at 01/03/20 09 - lidocaine 4 % 1 Patch (SALONPAS) 1 Patch TRANSDERMAL DAILY Ivy Rao 1 Patch at 01/03/20 09 And - lidocaine patch - REMOVE OTHER AT BEDTIME Ivy Rao And - lidocaine - VERIFY PATCH OTHER q 8 H Ivy Rao - morphine 4 mg injection 4 mg INTRAVENOUS q 2 H PRN Ivy Rao 4 mg at 01/03/20 0907 - levETIRAcetam 500 mg tab(s) (KEPPRA) 500 mg ORAL DAILY (8 AM) Ivy Rao 500 mg at 01/03/20 09 - levETIRAcetam 500 mg tab(s) (KEPPRA) 500 mg ORAL DAILY (8 PM) Ivy Rao levetiracetam (KEPPRA ORAL), Take 300 mg by mouth three times daily., Disp: , Rfl: melatonin 10 mg tab, Take 10 mg by mouth daily at bedtime., Disp: , Rfl: ALBUTEROL INHALATION, Inhale as instructed twice daily., Disp: , Rfl: fluticasone propionate (FLONASE ALLERGY RELIEF NASAL), Use in the nose twice daily., Disp: , Rfl: gabapentin 100 mg ORAL capsule, Take 1 capsule by mouth three times daily. (Patient taking differently: Take 400 mg by mouth three times daily. ), Disp: 90 capsule, Rfl: 3 omeprazole (PRILOSEC) 20 mg ORAL capsule, Take 1 capsule by mouth twice daily., Disp: , Rfl: 0 Social History Tobacco Use - Smoking status: Current Every Day Smoker Packs/day: 0.50 Years: 10.00 Pack years: 5.00 Types: Cigarettes Substance Use Topics - Alcohol use: Yes Comment: Occassionally - Drug use: No FAMILY HISTORY Problem Relation Age of Onset - Arthritis Father - Coronary Artery Disease Father - Hypertension Father - Lipids Father - Arthritis Mother - Diabetes Mother - Hypertension Mother - Psychiatry Brother bipolar - Cancer Sister - Headache Sister - Psychiatry Sister bipolar No past surgical history on file. ROS: All of the following reviewed and negative except as noted below: GENERAL: no fever, chills, sweats, weight loss,+ fatigue, generalized weakness HEENT: no headache, vision changes, eye discomfort, hearing change, ear discomfort, sinus pain, nasal discharge or congestion, oral lesions, soreness, dental problem NECK: no adenopathy, discomfort, change in ROM CHEST: no shortness of breath, dyspnea on exertion, wheezing, cough, sputum production or chest pain HEART: no chest pain, palpitations, syncope ABDOMEN: no nausea, vomiting, constipation, diarrhea, abdominal pain : no dysuria, urgency, frequency, history of stones, incontinence NEURO: no confusion or alteration in consciousness, slurred speech, seizure, see HPI EXTREMITIES: no new pain, edema, change in ROM HEME: no new adenopathy, bruises, petechiae PSYCH: no depression, anxiety, agitation PAIN PSYCHIATRIC EXAM: GENERAL: alert, oriented to person, place, time JUDGMENT AND INSIGHT: intact APPEARANCE: neatly groomed DEMEANOR: coooperative, not hostile, mistrustful, preoccupied, or demanding ACTIVITY: normal, not hyperactive or hypoactive, no tremors, tics EYE CONTACT: normal SPEECH: normal, rate, volume, articulation, coherence, spontaneity MOOD: anxious IDEATION: deferred MEMORY: intact PHYSICAL EXAMINATION: GENERAL: well nourished and developed; anxious, tearful, appears uncomfortable; alert and oriented x 3; intact judgement and insight HEENT: no evidence of trauma; cranial nerves intact; eyes clear EOMI; no hearing deficits apparent; nasal passages unremarkable; throat and mucous membranes clear NECK: supple without lymphadenopathy; no JVD; no thyromegaly CHEST: clear bilaterally to auscultation; normal chest movement; no rales or rhonchi HEART: regular rate and rhythm, normal S1 and S2, no murmurs, clicks, rubs, or gallops ABDOMEN: soft; nondistended; bowel sounds present; no hepatomegaly; no splenomegaly; no tenderness EXTREMITIES: no evidence of clubbing; no cyanosis; no deformity; no joint effusion; no edema NEURO: cranial nerves intact; no confusion; no tremor; sensorium normal; bilateral lower extremity weakness and pain with movement bilateral lower extremities SKIN: no rash; no skin breakdown; no decubitus lesions HEME: no bruising; no adenopathy PSYCH: no evidence of depression; + anxiety; no agitation; no apparent hallucinations BP 155/89 Pulse 97 Temp 36.6 ?C (97.9 ?F) (Oral) Resp 18 Ht 175.3 cm (5' 9) Wt 100.2 kg (221 lb) SpO2 96% BMI 32.64 kg/m? BMI 32.64 kg/(m2) Date 01/02/20 07 - 01/03/20 0659(Not Admitted) 01/03/20 07 - 01/04/20 0659 Shift 3924-1995 5524-8001 6920-2770 24 Hour Total 5652-4343 9015-6142 3371-2718 24 Hour Total INTAKE Shift Total OUTPUT Urine 1300 1300 Output ( Indwelling Urinary Catheter 01/03/20 0325 Admission to [facility] 16 Fr) 1300 1300 Shift Total 1300 1300 Weight (kg) 100.2 100.2 100.2 100.2 100.2 100.2 ABNORMAL/NEW FINDINGS: NONE RADIOLOGY/DIAGNOSTICS: LABORATORY: CBC: Recent Labs 01/03/20 0429 WBC 10.75* RBC 4.51 HB 14.6 HCT 44.7 PLT 292 MCV 99.1* MCH 32.4* MPV 10.4 RDW 13.2 CMP: Recent Labs 01/03/20 0429 NA 138 K 4.2 CHLOR 103 CO2 23 BUN 17 CREAT 0.69 GLUC 91 TPROT 6.9 CA 9.0 TBILI 0.2 ALKPHOS 121 ALT 30 AST 27 ANION 12 Heme: No results for input(s): RETICP, ABSRETIC, LD, RADHA, FE, TIBC, TRANSFERSAT in the last 24 hours. 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 Unable to do lumbar MRI due to gastric pacer Patient hospitalized 1 year ago at [facility] for similar symptoms; chart reviewed No longer prescribed regular opiates Gabapentin 300 mg 3 times daily Change morphine 2-4 mg IV every 3 hours as needed breakthrough pain Decadron 4 mg IV every 6 hours per Neurosurgery Lidoderm patch trial Oxycodone 5-10 mg every 4 hours as needed moderate to severe pain Patient states intolerant of all muscle relaxants and was told not to take them after aneurysm rupture with coiling Senna S twice daily with MiraLAX as needed Will follow with you. Follow-up with Dr. Robledo in [place] after discharge Thank you for this consult MD Ivy Benjamin, DO 01/03/2020 2:16 PM Signed Patient seen and examined by lynsey villalba in AM. Patient continues to complain of episodes of chalie horse cramping in her legs, L buttock, and sometimes as vaginal spasms. In between these spasms she notes a sharp stabbing pain in the center of her low back that feels sharp/knife-like. Her rodriguez catheter is in place and draining well. A UA has been ordered and has moderate leuk esterase and small amout of hgb without rbcs, and no bacteria or nitrates. She has been evaluated by neuroSx who is awaiting myelogram. I have adjusted her pain medications as she reports more relief from morphine than from dilaudid, added flexeril, I have also added supportive therapies such as warm compress, and consulted pain management for further evaluation as she follows with pain management and this episode began several days after spinal injection. See H and P from same date for further details. Reuben Khan APRN.CNP 01/03/2020 2:54 PM Signed BRIEF OP NOTE LOG ID: [id number] Surgery/Procedure Date: 01/03/2020 Incision/Procedure Start Time: 1435 Incision Close/Procedure End Time: 1450 Surgeon(s)/Proceduralis t(s) and Paper Twister(s): Surgeon(s) and Role: * Reuben Khan - Primary Procedure(s): Fluoroscopy guided injection of omnipaque for myelogram with local anesthetic Anesthesia: Local 4 ml 2% lidocaine Findings: L4/5 midline, free flow clear CSF obtained, IT injection of 12 ml omnipaque 300 Estimated Blood Loss: 0 ml Specimens: None Complications: None Pre-Op/Pre-Procedure Diagnosis: spinal stenosis Post-Op/Post-Procedure Diagnosis: spinal stenosis SIGNATURE: Reuben Khan APRN.CNP PATIENT NAME: Ortiz Jacobs DATE: January 03, 2020 TIME: 2:51 PM PAGER/CONTACT #: [phone] JODI GERBER PHARMACIST 01/04/2020 10:17 AM Signed MEDICATION HISTORY Patient Name:Josue Jacobs : 1970 Source of history:Patient: Reliability of source: Appears reliable, clearly identified: Medication name, Medication dose, Medication route, Medication frequency, Timing of last dose and Indications, Pharmacy records: [facility] [phone], [facility] records and [facility] Medication Nonadherence Identified: No barriers noted The above information represents the best possible medication history: Yes Additional comments: Medication history obtained from patient and pharmacy fill records in Photos to Photos. Spoke with patient that was tearful but knowledgeable about medications. Reviewed all medications and their doses, strengths, frequencies with the patient and verified against pharmacy records. Changes to medication list documented below. [id number] Medication List Adjustments: - Gabapentin strength, dose, and directions changed to 300 mg TID - per pt in pharmacy records - Levetiracetam dose, and directions changed to 1500 mg BID - per pt takes 6 tablets BID, prescription written for 5 tablets BID - Omeprazole dose and frequency changed to 40 mg every day - per pt takes 2 capsules once daily Medications Added: - Advair 250/50 mcg inhale one puff daily per pt, directions per pharmacy are one puff BID - Multivitamin daily pt takes centrum silver OTC per pt Medicaitons Removed: - erroneous Gabapentin order Short-Term Medications: Cyclobenzaprine 10 mg filled on 01/01 for 7 days supply quantity 21 tablets - pt reports not taking as advised by neurologist - Tamsulosin 0.4 mg - pt previously took for kidney stones. Reports no longer taking Further Clarification Required: - pt reports taking albuterol proair inhaler BID scheduled, states she alternates with advair, advise pt this can be used as needed for SOB Patient is a 30 day readmission: No Patient Interested in Bedside Delivery: No Time Spent Reviewing Patient's Medications: 30 minutes Allergies: ALLERGIES Allergen Reactions - Darvocet A500 [Prop* Shortness of Breath - Penicillins Swelling - Darvocet A500 [Prop* Unknown - Penicillins Unknown Preferred Pharmacy: [facility] [phone] Current FIRE MANAGER Medications: Prior to Admission medications as of 01/04/20 0939 Medication Sig Last Dose Taking gabapentin (NEURONTIN) 300 mg capsule Take 300 mg by mouth three times daily. Yes fluticasone-salmeterol (ADVAIR DISKUS) 250-50 mcg/dose Inhale 1 Puff as instructed twice daily. Yes Multivitamins-Minerals- Lutein (MULTIVITAMIN 50 PLUS) tab Take 1 tablet by mouth once daily. Yes levETIRAcetam (KEPPRA) 250 mg tablet Take 1,500 mg by mouth twice daily. 01/02/2020 at Unknown time Yes melatonin 10 mg tab Take 10 mg by mouth daily at bedtime. 01/02/2020 at Unknown time Yes ALBUTEROL INHALATION Inhale as instructed twice daily. 01/02/2020 at Unknown time Yes fluticasone propionate (FLONASE ALLERGY RELIEF NASAL) Use 1 [place] in the nose twice daily. 01/02/2020 at Unknown time Yes omeprazole (PRILOSEC) 20 mg ORAL capsule Take 40 mg by mouth once daily. 01/02/2020 at Unknown time Yes Zuly Urbina (Inorganic Chemistry Professor) January 04, 2020 9:40 AM MEDICATION RECONCILIATION Patient Name:Josue Jacobs : 1970 Reconciliation: Yes All FIRE MANAGER medications addressed by LIP, Medications intentionally held at admission: advair, omeprazole (nonformulary), proair, multivitamin, flonase and Discussed with LIP, plans to modify dose of Keppra to 1500 mg twice daily based on updated medication history Additional comments: Medication history obtained from patient and pharmacy records by pharmacy customer care specialist as documented above. All medications reviewed and reconciled appropriately. JDOI GERBER, PHARMACIST January 04, 2020 10:15 AM Ext: [id number] Previous Version Ching Horta DO 01/04/2020 10:09 AM Signed DEPARTMENT [facility] MEDICINE PROGRESS NOTE SERVICE DATE: 01/04/2020 SERVICE TIME: 10:01 AM Hospital Medicine/Primary Attending: Ching Horta DO NIGHT AND WEEKEND COVERAGE: After 7pm, please call cross cover pager #[phone] Subjective INTERVAL HPI: Patient seen and examined. Complaining of ongoing back and leg cramping that has been present since she had joint injection on 12/27. Reports that the pain is getting worse. Also complaining of R foot pain and bone pain. She is tearful and crying MEDICATIONS: Reviewed Objective PHYSICAL EXAM: BP 115/65 Pulse 74 Temp (Src) 97.6 (Oral) Resp 18 Ht 5' 9 (1.75m) Wt 221 lb (100.2kg) SpO2 95% BMI 32.62 kg/(m2). O2 Therapy: Room Air Physical Exam Performed Constitutional - Vitals as above, not in acute distress Resp - Clear to auscultate both sides, no wheezes, crackles or rales, no labored breathing CVS- RRR. 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 Assessment/Plan #ongoing low back pain with bilateral lower extremity pain R>L with concern for urinary retention-has rodriguez changed Thursday per patient, being followed by NS and pain mgmt, pending myelogram, continue pain control, check ck, repeat BMP, mag overnight WNL, on decadron #hyperglycemia-contiue accuchecks and SSI #R foot pain-check xray #periphearl neuropathy-continue gabapenting #hx cauda equina #GERD-continue PPI #epilepsy-continue keppra #pyuria-will send for culture Medication and Non-Pharmacologic VTE Prophylaxis/Anticoagula nts Anticoagulant AND Antiplatelet Medications (From admission, onward) Start Dose Route Frequency Ordered Stop 01/03/20 0900 enoxaparin 40 mg injection (LOVENOX) (Medical Risk Categories) 40 mg SUBCUTANEOUS DAILY 01/03/20 0343 -- 01/04/20 0945 pneumatic compression stockings (il,nc) 01/03/20 0345 vte non-pharmacologic prophylaxis - none indicated (il,nc) VTE Prophylaxis: VTE prophylaxis appropriate Disposition: To be determined Plan of care discussed with: Provider, RN, Patient SIGNATURE: Ching Horta DO PATIENT NAME: Ortiz Jacobs DATE: January 04, 2020 TIME: 10:01 AM PAGER/CONTACT #: [phone] Ana Levine RN, RN 01/04/2020 12:52 PM Signed CARE MANAGEMENT: ASSESSMENT AND DISCHARGE PLAN SERVICE DATE: January 04, 2020 SERVICE TIME: 1200 PRIMARY CARE PHYSICIAN: Amandeep Loredo ADMISSION STATUS: Inpatient Needs Prior to Discharge: OT/PT Evaluation MEDICAL: [facility] [employer] MEDICARE Last Discharge Date: 09/03/11 Is this Within the Past 30 days? 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 Attempted to Assist with AD Completion: No Unable to Assist Due To:: Other: See Comment(d/t covid policy) Health Literacy Baseline Mental Status Prior to this Illness what was the patient's Baseline Mental Status?: Alert AND Oriented Prior to this illness, has anyone described the patient having any of the following behaviors?: Not Applicable Relationship of the informant to the patient:: Self SOCIAL: Primary Contact: Extended Emergency Contact Information Primary Emergency Contact: Leandra Miller Address: [address] [place] [id number] Mobile Relation: Significant other Secondary Emergency Contact: MARC JACOBS Relation: Spouse Social Needs Food insecurity Worry: Never true Inability: Never true Resources Needed: No Social Needs Financial resource strain: Not hard at all Social Needs Transportation needs Medical: No Non-medical: No Caregiver AssessmentCaregiver is ready, willing and able to meet the patient's needs as recommended by the inter-professional team:: Yes Does the patient have an acute stroke diagnosis, or has the patient had a stroke during this admission?: Yes Patient's perception of need for this admission: Severe back pain and leg pain with cramping Are you interested in bedside delivery of your medications? Yes ASSESSMENT AND PLAN: Medical Needs: Psychosocial Needs: FREEDOM OF CHOICE EXPLAINED: [place] of Choice Given: Yes Level of Care Discussed: Home Care Financial Disclosure Provided: Yes Financial Disclosure Comments: [facility] Home Health Care Affiliation Provider List: Home Care Provider list within the patient's requested geographic area shared with the patient/family: Yes within: 10 miles of zip code: [address] Quality and resource use metrics shared with the patient that are relevant to the patient's goals of care and treatment preferences:: Yes Metrics: Potentially Preventable 30-day Post Discharge Readmission Rates POTENTIAL TRANSITION PLANS Spoke with patient via telephone, prior to admission was independent, lives alone in a 2 story home with 1/2 bath on first floor , bed and full bath on second floor. [facility], PCP Dr. Loredo in [place], Uses [facility] pharmacy on [address] in [place], if discharged during the week would like to use bedside pharmacy delivery. Plan is for patient to go to her fiance's [facility] at discharge. [facility] is all on one level one step and stoop to enter. Discussed possible HHC services at discharge, if needed patient is in agreement, provided agency choice list . Patient does not drive, her daughter and neighbor provide transportation to MD appt's. Discussed contacting patients [facility] insurance to inquire about transportation thru them. Pt. 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 Pt verbalizes concerns about being able to bait painter the shower or get down into the bath tub at discharge. Pt. May benefit from a shower chair and [facility] follow up at dischage. Will continue to follow. SIGNATURE: Ana Levine RN PATIENT NAME: Ortiz Jacobs DATE: January 04, 2020 TIME: 11:56 AM PAGER/CONTACT #: [phone] Janeth Valderrama MD 01/04/2020 1:12 PM Signed Name: ORTIZ JACOBS Age: [age] year old PAIN MANAGEMENT: Back Pain Pain Description: Patient remains anxious, tearful, ongoing low back pain and complaints of charley horse sensation bilateral lower extremities; feels knots in her legs and groin area 24H Pain Regimen: Decadron 4 mg IV ?4 Gabapentin 300 mg ?1, 400 mg ?1 Morphine 4 mg IV ?4 Oxycodone 5 mg ?1, 10 mg ?1 Lidoderm patch Interval HPI: Able overnight, needs bowel movement. Complained of right foot pain; x-ray negative 01/02 CT Myelogram L3?for small posterior central disc extrusion with caudal migration causing moderate narrowing of thecal sac left greater than right neural foraminal narrowing. Postop changes L4-S1. Thoracic spine T10-T11 small right paracentral disc protrusion Cervical spine mild multilevel cervical degenerative disc disease. Postsurgical changes at C6-C7 Subjective HPI: 49-year-old female with history of seizures, prior L4-S1 fusion in 2015 at [facility], prior C6-C7 fusion 2006, basilar artery aneurysm status post coiling 2011, stroke 2010 and GERD, gastroparesis status post gastric pacemaker presented 01/02 from [place] transfer with intractable back pain, urinary retention and severe bilateral lower extremity pain and spasm. Patient is followed by Dr. Robledo in [place] for pain management; last SI joint injection 12/28. CT myelogram pending; patient unable to have MRI due to gastric pacemaker. Of note, patient was hospitalized twice October, at [facility] for L3-L4 and T10-T11 disc herniation with radiculopathy. Outpatient PT, Decadron therapy and spine follow-up recommended. She re-presented with left arm numbness and facial droop; imaging negative for acute stroke. Symptoms felt to be secondary to migraine. In review of records during that hospitalization, there is concern for suspicious drug-seeking behavior as documented in the chart (including requesting opiate prescription at discharge despite recent filling prescription Percocet No. 100, and requesting IV opiates) Patient lives alone. She denies tobacco, alcohol or illicit meds. Home pain regimen includes gabapentin 300 mg 3 times daily. She no longer takes daily opiates. She previously had been on long-acting opiates last year. 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 11/11/2019 Gabapentin 300 MG Capsule 90.00 30 Eu Pet [id number] [id number] [place] 09/26/2019 2 09/25/2019 Oxycodone-Acetaminophen 5-325 12.00 3 Al Abby [id number] [facility] ([id number] 0 30.00 [place] 09/19/2019 2 09/19/2019 Oxycodone-Acetaminophen 5-325 15.00 3 Do Kol [id number] [facility] ([id number]) 0 37.50 [place] 08/31/2019 2 08/31/2019 Gabapentin 300 MG Capsule 90.00 30 Ay Bas [id number] [facility] ([id number] [place] 07/15/2019 2 07/15/2019 Gabapentin 300 MG Capsule 90.00 30 Ay Bas [id number] [facility] ([id number] [place] 06/03/2019 2 05/30/2019 Diazepam 5 MG Tablet 10.00 4 To Le [id number] [facility] ([id number]) 0 1.25 LME [place] 06/03/2019 2 05/30/2019 Oxycodone-Acetaminophen 5-325 12.00 3 To Le [id number] [facility] ([id number]) 0 30.00 [place] 06/03/2019 2 06/03/2019 Gabapentin 300 MG Capsule 60.00 20 Je B [id number] [facility] ([id number]) 0 Medicare Current Facility-Administered Medications Medication Dose Route Frequency Provider Last Rate Last Dose - levETIRAcetam (KEPPRA) tab(s) 1,500 mg 1,500 mg ORAL BID Chingamy Horta - sodium chloride 0.65 % 2 [place] (AYR, OCEAN) 2 [place] EACH NOSTRIL PRN Ching Schaef - senna-docusate 8.6-50 mg 2 tablet (SENNA-S) 2 tablet ORAL BID Janeth K Scantling - [START ON 01/05/2020] polyethylene glycol 3350 17 g packet (MIRALAX, GLYCOLAX) 17 g ORAL DAILY Janeth K Scantling - melatonin 9 mg tab(s) 9 mg ORAL AT BEDTIME [facility] 9 mg at 01/03/20 2158 - enoxaparin 40 mg injection (LOVENOX) 40 mg SUBCUTANEOUS DAILY [facility] 40 mg at 01/04/20 0801 - NaCl 0.9% 3-5 mL 3-5 mL INTRAVENOUS q 12 H [facility] 3 mL at 01/04/20 0900 - ondansetron 4 mg tab(s) (ZOFRAN) 4 mg ORAL q 6 H PRN [facility] 4 mg at 01/03/20 1645 Or - ondansetron (PF) 4 mg injection (ZOFRAN) 4 mg INTRAVENOUS q 6 H PRN [facility] - dexamethasone sodium phosphate 4 mg injection (DECADRON) 4 mg INTRAVENOUS q 6 H [facility] 4 mg at 01/04/20 1212 - pantoprazole DR 40 mg tab(s) (PROTONIX) 40 mg ORAL DAILY (6 AM) [facility] 40 mg at 01/04/20 0619 - dextrose 40 % 15 g 15 g ORAL PRN [facility] Or - glucagon 1 mg injection (GLUCAGEN) 1 mg INTRAMUSCULAR PRN [facility] Or - dextrose 50% in water 25 mL syringe 12.5 g INTRAVENOUS PRN [facility] - insulin lispro pen (rapid acting) (HumaLOG KWIKPEN) SUBCUTANEOUS w MEALS [facility] 2 Units at 01/04/20 0802 - albuterol 2.5 mg /3 mL (0.083 %) 2.5 mg (PROVENTIL) 2.5 mg INHALATION q 6 H PRN [facility] - magnesium oxide 400 mg tab(s) (MAG-OX) 400 mg ORAL BID Ivy Rao 400 mg at 01/04/20 1001 - lidocaine 4 % 1 Patch (SALONPAS) 1 Patch TRANSDERMAL DAILY Ivy Rao 1 Patch at 01/04/20 0802 And - lidocaine patch - REMOVE OTHER AT BEDTIME Ivy Rao And - lidocaine - VERIFY PATCH OTHER q 8 H Ivy Rao - gabapentin 300 mg cap(s) (NEURONTIN) 300 mg ORAL TID Janeth K Scantling 300 mg at 01/04/20 1212 - morphine 2-4 mg injection 2-4 mg INTRAVENOUS q 3 H PRN Janeth K Scantling 4 mg at 01/04/20 0019 - oxyCODONE IR 5-10 mg tab(s) (ROXICODONE) 5-10 mg ORAL q 4 H PRN Janeth K Scantling 10 mg at 01/04/20 1000 gabapentin (NEURONTIN) 300 mg capsule, Take 300 mg by mouth three times daily., Disp: , Rfl: fluticasone-salmeterol (ADVAIR DISKUS) 250-50 mcg/dose, Inhale 1 Puff as instructed twice daily., Disp: , Rfl: Multivitamins-Minerals- Lutein (MULTIVITAMIN 50 PLUS) tab, Take 1 tablet by mouth once daily., Disp: , Rfl: levETIRAcetam (KEPPRA) 250 mg tablet, Take 1,500 mg by mouth twice daily. , Disp: , Rfl: , 01/02/2020 at Unknown time melatonin 10 mg tab, Take 10 mg by mouth daily at bedtime., Disp: , Rfl: , 01/02/2020 at Unknown time ALBUTEROL INHALATION, Inhale as instructed twice daily., Disp: , Rfl: , 01/02/2020 at Unknown time fluticasone propionate (FLONASE ALLERGY RELIEF NASAL), Use 1 [place] in the nose twice daily. , Disp: , Rfl: , 01/02/2020 at Unknown time omeprazole (PRILOSEC) 20 mg ORAL capsule, Take 40 mg by mouth once daily. , Disp: , Rfl: 0, 01/02/2020 at Unknown time Social History Tobacco Use - Smoking status: Current Every Day Smoker Packs/day: 0.50 Years: 10.00 Pack years: 5.00 Types: Cigarettes Substance Use Topics - Alcohol use: Yes Comment: Occassionally - Drug use: No FAMILY HISTORY Problem Relation Age of Onset - Arthritis Father - Coronary Artery Disease Father - Hypertension Father - Lipids Father - Arthritis Mother - Diabetes Mother - Hypertension Mother - Psychiatry Brother bipolar - Cancer Sister - Headache Sister - Psychiatry Sister bipolar No past surgical history on file. ROS: All of the following reviewed and negative except as noted below: GENERAL: no fever, chills, sweats, weight loss,+ fatigue, generalized weakness HEENT: no headache, vision changes, eye discomfort, hearing change, ear discomfort, sinus pain, nasal discharge or congestion, oral lesions, soreness, dental problem NECK: no adenopathy, discomfort, change in ROM CHEST: no shortness of breath, dyspnea on exertion, wheezing, cough, sputum production or chest pain HEART: no chest pain, palpitations, syncope ABDOMEN: no nausea, vomiting, constipation, diarrhea, abdominal pain : no dysuria, urgency, frequency, history of stones, incontinence NEURO: no confusion or alteration in consciousness, slurred speech, seizure, see HPI EXTREMITIES: no new pain, edema, change in ROM HEME: no new adenopathy, bruises, petechiae PSYCH: no depression, anxiety, agitation PAIN PSYCHIATRIC EXAM: GENERAL: alert, oriented to person, place, time JUDGMENT AND INSIGHT: intact APPEARANCE: neatly groomed DEMEANOR: coooperative, not hostile, mistrustful, preoccupied, or demanding ACTIVITY: normal, not hyperactive or hypoactive, no tremors, tics EYE CONTACT: normal SPEECH: normal, rate, volume, articulation, coherence, spontaneity MOOD: anxious IDEATION: deferred MEMORY: intact PHYSICAL EXAMINATION: GENERAL: well nourished and developed; anxious, tearful,; alert and oriented x 3; intact judgement and insight HEENT: no evidence of trauma; cranial nerves intact; eyes clear EOMI; no hearing deficits apparent; nasal passages unremarkable; throat and mucous membranes clear NECK: supple without lymphadenopathy; no JVD; no thyromegaly CHEST: clear bilaterally to auscultation; normal chest movement; no rales or rhonchi HEART: regular rate and rhythm, normal S1 and S2, no murmurs, clicks, rubs, or gallops ABDOMEN: soft; nondistended; bowel sounds present; no hepatomegaly; no splenomegaly; no tenderness EXTREMITIES: no evidence of clubbing; no cyanosis; no deformity; no joint effusion; no edema NEURO: cranial nerves intact; no confusion; no tremor; sensorium normal; bilateral lower extremity weakness and pain with movement bilateral lower extremities SKIN: no rash; no skin breakdown; no decubitus lesions HEME: no bruising; no adenopathy PSYCH: no evidence of depression; + anxiety; no agitation; no apparent hallucinations BP 115/65 Pulse 74 Temp 36.4 ?C (97.6 ?F) (Oral) Resp 18 Ht 175.3 cm (5' 9) Wt 100.2 kg (221 lb) SpO2 96% BMI 32.64 kg/m? BMI 32.64 kg/(m2) Date 01/02/20 07 - 01/03/20 0659(Not Admitted) 01/03/20699 - 01/04/20 0659 Shift 0581-1177 2940-9268 4273-2311 24 Hour Total 9435-0833 8812-3925 6391-2721 24 Hour Total INTAKE Shift Total OUTPUT Urine 1300 1300 Output ( Indwelling Urinary Catheter 01/03/20 0325 Admission to Hospital Rodriguez 16 Fr) 1300 1300 Shift Total 1300 1300 Weight (kg) 100.2 100.2 100.2 100.2 100.2 100.2 ABNORMAL/NEW FINDINGS: NONE RADIOLOGY/DIAGNOSTICS: LABORATORY: CBC: No results for input(s): WBC, RBC, HB, HCT, PLT, MCV, MCH, MPV, RDW in the last 24 hours. CMP: Recent Labs 01/04/20 1010 NA 137 K 4.2 CHLOR 100 CO2 21* BUN 17 CREAT 0.67 GLUC 194* CA 9.1 ANION 16 Heme: No results for input(s): RETICP, ABSRETIC, LD, RADHA, FE, TIBC, TRANSFERSAT in the last 24 hours. 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] Severe Back Pain PLAN: Patient with prior lumbar fusion presents with intractable low back pain, bilateral lower extremity pain and weakness with urinary retention Appreciate neurosurgery evaluation; await their interpretation of CT myelogram yesterday Patient hospitalized 1 year ago at [facility] for similar symptoms; chart reviewed No longer prescribed regular opiates Gabapentin 300 mg 3 times daily Change morphine 2-4 mg IV every 3 hours as needed breakthrough pain Decadron 4 mg IV every 6 hours per Neurosurgery Lidoderm patch trial Discontinue morphine IV Oxycodone 5-10 mg every 4 hours as needed moderate to severe pain Patient states intolerant of all muscle relaxants and was told not to take them after aneurysm rupture with coiling Senna S twice daily. Change MiraLAX daily Will follow with you. Follow-up with Dr. Robledo in [place] after discharge Discussed with MD Felicitas Estes (Inorganic Chemistry Professor) 01/04/2020 2:17 PM Signed CUSTOMER SUCCESS MANAGER BEDSIDE DELIVERY SURVEY 1. Patient to use [facility] Bedside Delivery - YES Insurance Information as follows: 2. Insurance card on file - YES 3. Credit card for payment - N/A Please call pharmacy bedside delivery at [phone] or [phone] if patient would like medications filled and delivered prior to discharge. Felicitas Lo (Inorganic Chemistry Professor) LILIAN Rodríguez, PA 01/04/2020 4:23 PM Addendum Neurosurgery Progress Note SERVICE DATE: 01/04/2020 SUBJECTIVE: Pt continues to c/o LBP and in particular, muscle spasms throughout the legs to the toes R>L. She states the spasms are much worse lying down and essentially go away when ambulating. She is also c/o sacral and coccyx pain and her pelvis/hip popping out during ambulation. She is able to ambulate but using a WWR to be safe. OBJECTIVE: Vitals: Temp (24hrs), Av.3 ?C (97.4 ?F), Min:36.1 ?C (96.9 ?F), Max:36.6 ?C (97.9 ?F) BP 115/65 Pulse 74 Temp 36.4 ?C (97.6 ?F) (Oral) Resp 18 Ht 175.3 cm (5' 9) Wt 100.2 kg (221 lb) SpO2 96% BMI 32.64 kg/m? O2 Therapy: Room Air IANDO: Date 01/03/20699 - 01/04/2065801/04/20699 - 01/05/20 0659 Shift 2680-1186 9376-2760 1536-3599 24 Hour Total 6265-8240 9911-3442 1958-8702 24 Hour Total INTAKE Shift Total OUTPUT Urine 345 476 6006 2900 750 750 Void (ml) 1400 1400 Output ( Indwelling Urinary Catheter 01/03/20 0325 Admission to Hospital [facility] 16 Fr) 865 230 6670 750 750 Shift Total 394 065 0776 2900 750 750 Weight (kg) 100.2 100.2 100.2 100.2 100.2 100.2 100.2 100.2 MEDICATIONS Current Facility-Administered Medications Medication Dose Route Frequency - sodium chloride 0.65 % 2 [place] (AYR, OCEAN) 2 [place] EACH NOSTRIL PRN - melatonin 9 mg tab(s) 9 mg ORAL AT BEDTIME - enoxaparin 40 mg injection (LOVENOX) 40 mg SUBCUTANEOUS DAILY - NaCl 0.9% 3-5 mL 3-5 mL INTRAVENOUS q 12 H - ondansetron 4 mg tab(s) (ZOFRAN) 4 mg ORAL q 6 H PRN Or - ondansetron (PF) 4 mg injection (ZOFRAN) 4 mg INTRAVENOUS q 6 H PRN - dexamethasone sodium phosphate 4 mg injection (DECADRON) 4 mg INTRAVENOUS q 6 H - pantoprazole DR 40 mg tab(s) (PROTONIX) 40 mg ORAL DAILY (6 AM) - dextrose 40 % 15 g 15 g ORAL PRN Or - glucagon 1 mg injection (GLUCAGEN) 1 mg INTRAMUSCULAR PRN Or - dextrose 50% in water 25 mL syringe 12.5 g INTRAVENOUS PRN - insulin lispro pen (rapid acting) (HumaLOG KWIKPEN) SUBCUTANEOUS w MEALS - albuterol 2.5 mg /3 mL (0.083 %) 2.5 mg (PROVENTIL) 2.5 mg INHALATION q 6 H PRN - magnesium oxide 400 mg tab(s) (MAG-OX) 400 mg ORAL BID - lidocaine 4 % 1 Patch (SALONPAS) 1 Patch TRANSDERMAL DAILY And - lidocaine patch - REMOVE OTHER AT BEDTIME And - lidocaine - VERIFY PATCH OTHER q 8 H - gabapentin 300 mg cap(s) (NEURONTIN) 300 mg ORAL TID - morphine 2-4 mg injection 2-4 mg INTRAVENOUS q 3 H PRN - oxyCODONE IR 5-10 mg tab(s) (ROXICODONE) 5-10 mg ORAL q 4 H PRN Labs: Recent Labs 01/04/20 1010 01/03/20 0930 01/03/20 0429 NA 137 -- 138 K 4.2 -- 4.2 CHLOR 100 -- 103 CO2 21* -- 23 BUN 17 -- 17 CREAT 0.67 -- 0.69 GLUC 194* -- 91 ANION 16 -- 12 CA 9.1 -- 9.0 MG -- 2.2 -- ALB -- -- 4.5 AST -- -- 27 ALT -- -- 30 ALKPHOS -- -- 121 TBILI -- -- 0.2 WBC -- -- 10.75* HB -- -- 14.6 HCT -- -- 44.7 PLT -- -- 292 Exam: GENERAL: mild distress, Alert, pleasant, initially in bed then got up easily to ambulate, still with rodriguez cath NEURO: orientedx3; speech clear and fluent; ambulates steadily but visibly has pelvic shift to the left?? Strength 5/5 BLE - some resistance to exam 2/2 pain HEENT: normocephalic, atraumatic LUNGS: Unlabored breathing ABDOMEN: Soft, non-tender, obese EXTREMITIES: No deformities SKIN: Skin color, texture, turgor normal, No rashes or lesions ASSESSMENT AND PLAN: Active Hospital Problems Diagnosis Date Noted - Severe back pain 01/03/2020 49 year old female acute on chronic LBP with spasms - neuro as above - myelogram reviewed by attending - no cauda equina - no surgery indicated at this time - regarding muscle relaxer use: discussed this with Dr. Hare and Dr. Leon and both agree muscle relaxer is NOT contraindicated following coiling (and 8yrs out especially) and may be prescribed - this was relayed to Dr. Valderrama - regarding sacral/coccyx/pelvic issue: rec orthopedic evaluation - pt with hx of coiled basilar aneurysm and was lost to follow up. Pt needs to f/u with Dr. Leon in the next few weeks for further evaluation SIGNATURE: LILIAN Rodríguez PATIENT NAME: Ortiz Jacobs DATE: January 04, 2020 TIME: 2:46 PM Pager: [phone] Previous Version Colleen Sargent, RN, RN 01/05/2020 4:08 AM Signed Pt still with c/o constipation and feels abdomen more distended. Requesting lactulose message sent to RT Leroy, Tech 01/05/2020 6:41 AM Signed Called for MRI screening form. RT Samuel, Tech 01/05/2020 6:44 AM Signed Pt has non compatible gastric pacer per RN. MRI cancelled. Ching Horta DO 01/05/2020 12:07 PM Addendum DEPARTMENT OF HOSPITAL MEDICINE PROGRESS NOTE SERVICE DATE: 01/05/2020 SERVICE TIME: 10:10 AM Hospital Medicine/Primary Attending: Ching Horta DO NIGHT AND WEEKEND COVERAGE: After 7pm, please call cross cover pager #[phone] Subjective INTERVAL HPI: Patient seen and examined. Thinks leg pain has improved. Still significant on R side but overall better. Complaining of R foot pain with ambulation. Wants the rodriguez removed-apparently it was put in in [place] ER for concern for urinary retention MEDICATIONS: Reviewed Objective PHYSICAL EXAM: BP 138/84 Pulse 62 Temp (Src) 97.7 (Oral) Resp 18 Ht 5' 9 (1.75m) Wt 226 lb 6.4 oz (102.7kg) SpO2 92% BMI 33.42 kg/(m2). O2 Therapy: Room Air Physical Exam Performed Constitutional - Vitals as above, not in acute distress Resp - Clear to auscultate both sides, no wheezes, crackles or rales, no labored breathing CVS- RRR. 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 Assessment/Plan #ongoing low back pain with bilateral lower extremity pain R>L with concern for urinary retention-has rodriguez changed Thursday per patient, being followed by NS and pain mgmt, pending myelogram, continue pain control, check ck, repeat BMP, mag overnight WNL, on decadron-no plan for surgical intervention, symptoms are improved, add PT and OT #hyperglycemia steroid induced-contiue accuchecks and SSI #hypokalemia-replace and repeat bmp in am #R foot pain-check xray-neg, more with ambulation, add PT #periphearl neuropathy-continue gabapentin #hx cauda equina #GERD-continue PPI #leukocytosis-likely reactive, pending urine cultuer #epilepsy-continue keppra #pyuria-will send for culture #urinary retention? Rodriguez placed in [place], void trial Medication and Non-Pharmacologic VTE Prophylaxis/Anticoagula nts Anticoagulant AND Antiplatelet Medications (From admission, onward) Start Dose Route Frequency Ordered Stop 01/03/20 0900 enoxaparin 40 mg injection (LOVENOX) (Medical Risk Categories) 40 mg SUBCUTANEOUS DAILY 01/03/20 0343 -- 01/04/20 0945 pneumatic compression stockings (il,nc) 01/03/20 0345 vte non-pharmacologic prophylaxis - none indicated (il,nc) VTE Prophylaxis: VTE prophylaxis appropriate Disposition: To be determined Plan of care discussed with: Provider, RN, Patient SIGNATURE: Ching Horta DO PATIENT NAME: Ortiz Jacobs DATE: January 05, 2020 TIME: 10:10 AM PAGER/CONTACT #: [phone] Previous Version Janeth Valderrama MD 01/05/2020 12:19 PM Signed Name: ORTIZ JACOBS Age: [age] year old PAIN MANAGEMENT: Back Pain Pain Description: Patient remains anxious, tearful, ongoing low back pain and complaints of charley horse sensation bilateral lower extremities; worse at right foot and leg 24H Pain Regimen: Decadron 4 mg IV ?4 Gabapentin 300 mg ?1, 400 mg ?1 Oxycodone 5 mg ?2, 10 mg ?3 Lidoderm patch Interval HPI: Stable overnight, needs bowel movement. No BM ?6 days; she requesting lactulose which has helped in the past 01/02 CT Myelogram L3?for small posterior central disc extrusion with caudal migration causing moderate narrowing of thecal sac left greater than right neural foraminal narrowing. Postop changes L4-S1. Thoracic spine T10-T11 small right paracentral disc protrusion Cervical spine mild multilevel cervical degenerative disc disease. Postsurgical changes at C6-C7 Subjective HPI: 49-year-old female with history of seizures, prior L4-S1 fusion in 2016 at [facility], prior C6-C7 fusion 2006, basilar artery aneurysm status post coiling 2011, stroke 2010 and GERD, gastroparesis status post gastric pacemaker presented 01/02 from [place] transfer with intractable back pain, urinary retention and severe bilateral lower extremity pain and spasm. Patient is followed by Dr. Robledo in [place] for pain management; last SI joint injection 12/28. CT myelogram pending; patient unable to have MRI due to gastric pacemaker. Of note, patient was hospitalized twice October, at [facility] for L3-L4 and T10-T11 disc herniation with radiculopathy. Outpatient PT, Decadron therapy and spine follow-up recommended. She re-presented with left arm numbness and facial droop; imaging negative for acute stroke. Symptoms felt to be secondary to migraine. In review of records during that hospitalization, there is concern for suspicious drug-seeking behavior as documented in the chart (including requesting opiate prescription at discharge despite recent filling prescription Percocet No. 100, and requesting IV opiates) Patient lives alone. She denies tobacco, alcohol or illicit meds. Home pain regimen includes gabapentin 300 mg 3 times daily. She no longer takes daily opiates. She previously had been on long-acting opiates last year. 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 11/11/2019 Gabapentin 300 MG Capsule 90.00 30 Eu Pet [id number] [facility] ([id number] [place] 09/26/2019 2 09/25/2019 Oxycodone-Acetaminophen 5-325 12.00 3 Al Abby [id number] [facility] ([id number] 0 30.00 [place] 09/19/2019 2 09/19/2019 Oxycodone-Acetaminophen 5-325 15.00 3 Do Kol [id number] [facility] ([id number]) 0 37.50 [place] 08/31/2019 2 08/31/2019 Gabapentin 300 MG Capsule 90.00 30 Ay Bas [id number] [facility] ([id number] [place] 07/15/2019 2 07/15/2019 Gabapentin 300 MG Capsule 90.00 30 Ay Bas [id number] [facility] ([id number] [place] 06/03/2019 2 05/30/2019 Diazepam 5 MG Tablet 10.00 4 To Le [id number] [facility] ([id number]) 0 1.25 LME [place] 06/03/2019 2 05/30/2019 Oxycodone-Acetaminophen 5-325 12.00 3 To Le [id number] [facility] ([id number]) 0 30.00 [place] 06/03/2019 2 06/03/2019 Gabapentin 300 MG Capsule 60.00 20 Je B [id number] [facility] ([id number]) 0 Medicare Current Facility-Administered Medications Medication Dose Route Frequency Provider Last Rate Last Dose - lactulose 20 g CUP (DUPHALAC, CONSTULOSE) 20 g ORAL TID Janeth K Scantling 20 g at 01/05/20 0841 - polyethylene glycol 3350 17 g packet (MIRALAX, GLYCOLAX) 17 g ORAL DAILY PRN Janeth K Scantling - levETIRAcetam (KEPPRA) tab(s) 1,500 mg 1,500 mg ORAL BID Ching Schaef 1,500 mg at 01/05/20 0841 - sodium chloride 0.65 % 2 [place] (AYR, OCEAN) 2 [place] EACH NOSTRIL PRN Ching Horta - senna-docusate 8.6-50 mg 2 tablet (SENNA-S) 2 tablet ORAL BID Janeth K Scantling 2 tablet at 01/05/20 0841 - iv contrast (radiology procedure) INTRAVENOUS DIRECTED PRN Gayle Leon - cyclobenzaprine 5 mg tab(s) (FLEXERIL) 5 mg ORAL TID PRN Janeth K Scantling 5 mg at 01/05/20 1144 - melatonin 9 mg tab(s) 9 mg ORAL AT BEDTIME Nauhar Gonzalez 9 mg at 01/04/20 1957 - enoxaparin 40 mg injection (LOVENOX) 40 mg SUBCUTANEOUS DAILY Nauhar Gonzalez 40 mg at 01/05/20 0841 - NaCl 0.9% 3-5 mL 3-5 mL INTRAVENOUS q 12 H Nauhar Gonzalez 3 mL at 01/05/20 0842 - ondansetron 4 mg tab(s) (ZOFRAN) 4 mg ORAL q 6 H PRN Nauhar Gonzalez 4 mg at 01/05/20 0841 Or - ondansetron (PF) 4 mg injection (ZOFRAN) 4 mg INTRAVENOUS q 6 H PRN Nauhar Gonzalez 4 mg at 01/05/20 0354 - dexamethasone sodium phosphate 4 mg injection (DECADRON) 4 mg INTRAVENOUS q 6 H [facility] 4 mg at 01/05/20 1146 - pantoprazole DR 40 mg tab(s) (PROTONIX) 40 mg ORAL DAILY (6 AM) [facility] 40 mg at 01/05/20 0610 - dextrose 40 % 15 g 15 g ORAL PRN [facility] Or - glucagon 1 mg injection (GLUCAGEN) 1 mg INTRAMUSCULAR PRN [facility] Or - dextrose 50% in water 25 mL syringe 12.5 g INTRAVENOUS PRN [facility] - insulin lispro pen (rapid acting) (HumaLOG KWIKPEN) SUBCUTANEOUS w MEALS [facility] 4 Units at 01/05/20 1145 - albuterol 2.5 mg /3 mL (0.083 %) 2.5 mg (PROVENTIL) 2.5 mg INHALATION q 6 H PRN [facility] - magnesium oxide 400 mg tab(s) (MAG-OX) 400 mg ORAL BID Ivy Rao 400 mg at 01/05/20 0843 - lidocaine 4 % 1 Patch (SALONPAS) 1 Patch TRANSDERMAL DAILY Ivy Rao 1 Patch at 01/05/20 0843 And - lidocaine patch - REMOVE OTHER AT BEDTIME Ivy Rao And - lidocaine - VERIFY PATCH OTHER q 8 H Ivy Rao - gabapentin 300 mg cap(s) (NEURONTIN) 300 mg ORAL TID Janeth K Scantling 300 mg at 01/05/20 0841 - oxyCODONE IR 5-10 mg tab(s) (ROXICODONE) 5-10 mg ORAL q 4 H PRN Janeth K Scantling 10 mg at 01/05/20 0840 gabapentin (NEURONTIN) 300 mg capsule, Take 300 mg by mouth three times daily., Disp: , Rfl: fluticasone-salmeterol (ADVAIR DISKUS) 250-50 mcg/dose, Inhale 1 Puff as instructed twice daily., Disp: , Rfl: Multivitamins-Minerals- Lutein (MULTIVITAMIN 50 PLUS) tab, Take 1 tablet by mouth once daily., Disp: , Rfl: levETIRAcetam (KEPPRA) 250 mg tablet, Take 1,500 mg by mouth twice daily. , Disp: , Rfl: , 01/02/2020 at Unknown time melatonin 10 mg tab, Take 10 mg by mouth daily at bedtime., Disp: , Rfl: , 01/02/2020 at Unknown time ALBUTEROL INHALATION, Inhale as instructed twice daily., Disp: , Rfl: , 01/02/2020 at Unknown time fluticasone propionate (FLONASE ALLERGY RELIEF NASAL), Use 1 [place] in the nose twice daily. , Disp: , Rfl: , 01/02/2020 at Unknown time omeprazole (PRILOSEC) 20 mg ORAL capsule, Take 40 mg by mouth once daily. , Disp: , Rfl: 0, 01/02/2020 at Unknown time Social History Tobacco Use - Smoking status: Current Every Day Smoker Packs/day: 0.50 Years: 10.00 Pack years: 5.00 Types: Cigarettes Substance Use Topics - Alcohol use: Yes Comment: Occassionally - Drug use: No FAMILY HISTORY Problem Relation Age of Onset - Arthritis Father - Coronary Artery Disease Father - Hypertension Father - Lipids Father - Arthritis Mother - Diabetes Mother - Hypertension Mother - Psychiatry Brother bipolar - Cancer Sister - Headache Sister - Psychiatry Sister bipolar No past surgical history on file. ROS: All of the following reviewed and negative except as noted below: GENERAL: no fever, chills, sweats, weight loss,+ fatigue, generalized weakness HEENT: no headache, vision changes, eye discomfort, hearing change, ear discomfort, sinus pain, nasal discharge or congestion, oral lesions, soreness, dental problem NECK: no adenopathy, discomfort, change in ROM CHEST: no shortness of breath, dyspnea on exertion, wheezing, cough, sputum production or chest pain HEART: no chest pain, palpitations, syncope ABDOMEN: no nausea, vomiting, constipation, diarrhea, abdominal pain : no dysuria, urgency, frequency, history of stones, incontinence NEURO: no confusion or alteration in consciousness, slurred speech, seizure, see HPI EXTREMITIES: no new pain, edema, change in ROM HEME: no new adenopathy, bruises, petechiae PSYCH: no depression, anxiety, agitation PAIN PSYCHIATRIC EXAM: GENERAL: alert, oriented to person, place, time JUDGMENT AND INSIGHT: intact APPEARANCE: neatly groomed DEMEANOR: coooperative, not hostile, mistrustful, preoccupied, or demanding ACTIVITY: normal, not hyperactive or hypoactive, no tremors, tics EYE CONTACT: normal SPEECH: normal, rate, volume, articulation, coherence, spontaneity MOOD: anxious IDEATION: deferred MEMORY: intact PHYSICAL EXAMINATION: GENERAL: well nourished and developed; anxious, tearful,; alert and oriented x 3; intact judgement and insight HEENT: no evidence of trauma; cranial nerves intact; eyes clear EOMI; no hearing deficits apparent; nasal passages unremarkable; throat and mucous membranes clear NECK: supple without lymphadenopathy; no JVD; no thyromegaly CHEST: clear bilaterally to auscultation; normal chest movement; no rales or rhonchi HEART: regular rate and rhythm, normal S1 and S2, no murmurs, clicks, rubs, or gallops ABDOMEN: soft; nondistended; bowel sounds present; no hepatomegaly; no splenomegaly; no tenderness EXTREMITIES: no evidence of clubbing; no cyanosis; no deformity; no joint effusion; no edema NEURO: cranial nerves intact; no confusion; no tremor; sensorium normal; bilateral lower extremity weakness and pain with movement bilateral lower extremities SKIN: no rash; no skin breakdown; no decubitus lesions HEME: no bruising; no adenopathy PSYCH: no evidence of depression; + anxiety; no agitation; no apparent hallucinations BP 138/84 Pulse 62 Temp 36.5 ?C (97.7 ?F) (Oral) Resp 18 Ht 175.3 cm (5' 9) Wt 102.7 kg (226 lb 6.4 oz) SpO2 92% BMI 33.43 kg/m? BMI 33.43 kg/(m2) Date 01/02/20 07 - 01/03/20 0659(Not Admitted) 01/03/20 07 - 01/04/20 0659 Shift 5025-9672 3740-3114 0407-4763 24 Hour Total 4952-6028 4049-1877 8414-9574 24 Hour Total INTAKE Shift Total OUTPUT Urine 1300 1300 Output ( Indwelling Urinary Catheter 01/03/20 0325 Admission to [facility] 16 Fr) 1300 1300 Shift Total 1300 1300 Weight (kg) 100.2 100.2 100.2 100.2 100.2 100.2 ABNORMAL/NEW FINDINGS: NONE RADIOLOGY/DIAGNOSTICS: LABORATORY: CBC: Recent Labs 01/05/20 0240 WBC 13.57* RBC 4.77 HB 15.3 HCT 47.0* PLT 352 MCV 98.5* MCH 32.1 MPV 9.8 RDW 13.1 CMP: Recent Labs 01/05/20 0240 NA 138 K 4.7 CHLOR 102 CO2 25 BUN 15 CREAT 0.62 GLUC 154* CA 9.1 ANION 11 Heme: No results for input(s): RETICP, ABSRETIC, LD, RADHA, FE, TIBC, TRANSFERSAT in the last 24 hours. 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 No surgical intervention needed Patient hospitalized 1 year ago at [facility] for similar symptoms; chart reviewed No longer prescribed regular opiates Gabapentin 300 mg 3 times daily Decadron 4 mg IV every 6 hours per Neurosurgery Lidoderm patch trial Oxycodone 5-10 mg every 4 hours as needed moderate to severe pain; concern for opiate bowel dysfunction with ongoing issues constipation Flexeril 5 mg by mouth 3 times a day when necessary. Discussed with neurosurgery Change MiraLAX when necessary. Add lactulose 20 g 3 times a day per patient request. Continue senna S twice daily Disposition pending Follow-up with Dr. Robledo in [place] after discharge MD Ha Benjamin, Student 01/05/2020 1:36 PM Signed SPIRITUALCARE Spiritual Care Visit- Brief Note Name: Ortiz Jacobs Date: January 05, 2020 Notes: Called room and spoke with patient. Prayed with patient. Spiritual care team is available as needed and discussed with patient how to contact us. Safety Leader Signature: Ha Yu To contact the Spiritual Care Department: Please call [phone] or Page the On-Call Safety Leader at pager [phone] Thank you for the opportunity to be of service. This is an electronically created document. IF PRINTED, PLEASE DO NOT REMOVE FROM THE CHART OR MODIFY PRINTED COPY. Pita Gandhi, PT 01/05/2020 1:55 PM Signed PHYSICAL THERAPY MISSED VISIT SERVICE DATE: 01/05/2020 SERVICE TIME: 1354 to 1354 ROOM: [id number] Attempted Evaluation. Patient not seen due to Illness. RN and tech in room, RN stating patient began coughing and O2 sats slightly dropped. Will follow when more appropriate. SIGNATURE: Pita Gandhi, PT PATIENT NAME: Ortiz Jacobs DATE: January 05, 2020 TIME: 1:54 PM Sneha Rangel RN, RN 01/05/2020 2:12 PM Signed Nursing Progress Note Patient Name: Ortiz Jacobs Patient Location: [place] [address] [id number]- Daily Note: 1405 cva team called overhead 1410 stroke team assembled with Dr. Hernandez and Ivy Reyes, BLAYNE at bedside BS 117, vitals recorded This note was completed by: CLIVE Martinez, 01/05/2020 3:15 PM Addendum Alerted that patient was coughing and had choked on a piece of lettuce while eating lunch. Then she had coughing and vomiting and felt like she coughed up the piece of lettuce. She was placed on NC and breathing treatment was called for. Per Rt, she appeared to pass out during this time and become less responsive. She completed a breathing treatment when she said that she felt funny and tingly and was noted to have L sided facial droop and paresthesias around her mouth and L arm with L arm drift and decreased sensation to her L face and L upper extremity. Patient also with dysarthria. Bilateral rhonci on lung exam. She said she felt funny. Stroke team was initiated and neurology to bedside with stroke care pathway. Patient awake and alert throughout my exam. Stat chest xray, abg and stat labs ordered as well as EKG in the setting of possible syncope with RT and aspiration, breathing treatments, ST- continue tele and echo as well as stroke team orders Previous Version Sneha Rangel RN, RN 01/05/2020 2:15 PM Signed Nursing Progress Note Patient Name: Ortiz Jacobs Patient Location: [id number] Daily Note: 2:14 PM patient having seizure like activity. Dr Hernandez at bedside and Ivy Reyes NP neuro at bedside. This note was completed by: CLIVE Martinez MD 01/05/2020 5:08 PM Signed INITIAL CONSULT NEURO STROKE SERVICE DATE: 01/05/2020 SERVICE TIME: 2:34 PM REQUESTING PHYSICIAN:stroke team PCP: Amandeep Loredo REASON FOR STROKE EVALUATION: Left hemiparesis with paraesthesia, left facial droop and dysarthria. Subjective HPI: Patient is a 49 year old female originally admitted for lower back pain with lower extremity weakness R>L who was last known well around [address] Horta evaluated her when she was choking on her salad. A Left facial droop was then noted and stroke team alerted. When looking further into her hx she has had multiple documented episodes of left sided weakness with left facial droop with a migraine lasting for days after. CT tia attack and CTA head and neck ordered. Stroke team conducted with Dr. Joiner. Pre-admission Was patient on antithrombotic agent prior to admission: No Was patient on lipid lowering agent prior to admission: No Pre-morbid mRS: Premorbid Modified Lombard Score: 1 - No significant disability despite symptoms - able to carry out all usual duties and activities PAST MEDICAL HISTORY Diagnosis Date - Back pain - Depression - Intracranial aneurysm - Sleep disorder - Smoking - Stomach cancer (HCC) 2009 - Stroke (HCC) 09/09/2010 Right Hemisphere - Uterine cancer (HCC) 2010 No past surgical history on file. Social History Tobacco Use - Smoking status: Current Every Day Smoker Packs/day: 0.50 Years: 10.00 Pack years: 5.00 Types: Cigarettes Substance Use Topics - Alcohol use: Yes Comment: Occassionally - Drug use: No FAMILY HISTORY Problem Relation Age of Onset - Arthritis Father - Coronary Artery Disease Father - Hypertension Father - Lipids Father - Arthritis Mother - Diabetes Mother - Hypertension Mother - Psychiatry Brother bipolar - Cancer Sister - Headache Sister - Psychiatry Sister bipolar ALLERGIES Allergen Reactions - Darvocet A500 [Prop* Shortness of Breath - Penicillins Swelling - Darvocet A500 [Prop* Unknown - Penicillins Unknown MEDICATION Pre-admission gabapentin (NEURONTIN) 300 mg capsule, Take 300 mg by mouth three times daily., Disp: , Rfl: fluticasone-salmeterol (ADVAIR DISKUS) 250-50 mcg/dose, Inhale 1 Puff as instructed twice daily., Disp: , Rfl: Multivitamins-Minerals- Lutein (MULTIVITAMIN 50 PLUS) tab, Take 1 tablet by mouth once daily., Disp: , Rfl: levETIRAcetam (KEPPRA) 250 mg tablet, Take 1,500 mg by mouth twice daily. , Disp: , Rfl: , 01/02/2020 at Unknown time melatonin 10 mg tab, Take 10 mg by mouth daily at bedtime., Disp: , Rfl: , 01/02/2020 at Unknown time ALBUTEROL INHALATION, Inhale as instructed twice daily., Disp: , Rfl: , 01/02/2020 at Unknown time fluticasone propionate (FLONASE ALLERGY RELIEF NASAL), Use 1 [place] in the nose twice daily. , Disp: , Rfl: , 01/02/2020 at Unknown time omeprazole (PRILOSEC) 20 mg ORAL capsule, Take 40 mg by mouth once daily. , Disp: , Rfl: 0, 01/02/2020 at Unknown time Current gabapentin (NEURONTIN) 300 mg capsule Take 300 mg by mouth three times daily. fluticasone-salmeterol (ADVAIR DISKUS) 250-50 mcg/dose Inhale 1 Puff as instructed twice daily. Multivitamins-Minerals- Lutein (MULTIVITAMIN 50 PLUS) tab Take 1 tablet by mouth once daily. levETIRAcetam (KEPPRA) 250 mg tablet Take 1,500 mg by mouth twice daily. melatonin 10 mg tab Take 10 mg by mouth daily at bedtime. ALBUTEROL INHALATION Inhale as instructed twice daily. fluticasone propionate (FLONASE ALLERGY RELIEF NASAL) Use 1 [place] in the nose twice daily. omeprazole (PRILOSEC) 20 mg ORAL capsule Take 40 mg by mouth once daily. REVIEW OF SYSTEMS patient unable to answer at this time due to dysarthria Objective PHYSICAL EXAM Vital Signs: BP 143/100 Pulse 90 Temp 36.6 ?C (97.9 ?F) (Oral) Resp 21 Ht 175.3 cm (5' 9) Wt 102.7 kg (226 lb 6.4 oz) SpO2 97% BMI 33.43 kg/m? GENERAL: Awake/easily arousable HEENT: Normocephalic/atraumati c RESPIRATORY: Normal respiratory effort. On 2L NC. CARDIOVASCULAR: RRR GI: Soft abdomen EXTREMITIES: No cyanosis, clubbing or edema. Good capillary refill. SKIN: Skin color, texture, turgor normal. No rashes or lesions. MUSCULOSKELETAL worsening of the right side recently. NEUROLOGICAL: LOC: 0 - alert and responsive 0 LOC Questions: 2 - none correct 2 LOC Commands: 1 - one correct 1 LOC Normal Gaze: 0 - normal gaze 0 Visual Matute: 2 - complete hemianopia 2 Facial Palsy: 2 - partial paralysis 2 Motor Left Arm: 2 - some antigravity effort but cannot sustain 2 Motor Right Arm: 1 - drift but does not hit bed 1 Motor Left Le - no antigravity effort but even minimal movements count 3 Motor Right Le - some antigravity effort but cannot sustain 2 Limb Ataxia: 1 - ataxia in upper or lower extremity 1 Sensory: 1 - mild to moderate unilateral loss but patient aware of touch (or aphasic, confused) 1 Language: 2 - severe aphasia (almost no information exchanged) 2 Dysarthria: 1 - mild-mod slurred 1 Extinction/Neglect: 0 - normal, none detected (or visual loss alone) 0 Initial NIHSS: 20 (01/05/20 1410 : Allyssa Reyes (Pa)) 20 MENTAL STATUS: Awake but dysarthric. She follows commands but limited. CRANIAL NERVES: PERRLA, EOM's intact and left facial droop, dysarthria, and left hemianopsia MOTOR:RUE unable to resist gravity but able to move. RLE with minimal movement but able to move. LUE able to unable to resist gravity but able to move. LLE with minimal movement but able to move SENSATION: Intact light touch COORDINATION: unable to perform due to weakness. GAIT: not tesetd DATA: Diagnostic tests reviewed for today's visit: Lipids, HbA1c, Recent Labs 01/04/20 0815 HBA1C 5.4 Most recent labs and imaging results. STROKE CARE PATH GARCIA [employer] Date Patient Last Known Well: 01/05/20 Time Patient Last Known Well: [address] Imaging Review: CT Imaging reviewed, NO acute infarct/hemorrhage seen CTA Imaging Review: CTA Imaging reviewed, NO large vessel occlusion or severe stenosis seen Candidate for Endovascular Therapy (Last Known Well within 24 hours): No - Negative for evidence of large vessel occlusion STROKE 9 CARE AND PREVENTION CHECKLIST 1. Is the patient currently on an ANTITHROMBOTIC medication (Antiplatelet or Anticoagulant): None Reason Antithrombotic not prescribed: Other - see comment(cereberal edema. will need LP) 2. Does the patient have known AFIB/FLUTTER: No 3. Is the patient on a STATIN: Atorvastatin 40 mg 4. Is the patient on VTE prophylaxis: Mechanical prophylaxis Mechanical intervention type: Intermittent compression stocking(s) 5. GLYCEMIC Control Medications: Not Diabetic 6. Stroke BP Goals: <180/105 Stroke BP Control: BP well controlled 7. Stroke IVF/Nutrition: NPO except med 8. TEMPERATURE Control: Normothermic 9. Does the patient need THERAPY: Yes Therapy involvement: PT;OT;ST Stroke Care and Prevention (personally reviewed by ALLYSSA REYES PA-C): Daily Rounding Date: 01/05/20 Daily Rounding Time: 1612 PROBLEM LIST: Active Problems: Severe back pain POA: Yes Resolved Problems: * No resolved hospital problems. * Impression/Recommendati ons Ortiz Jacobs is a 49 year old, female who was admitted for low back complaints with difficulty ambulating. She had myelogram two days ago ans with no plan for surgery. Today patient was witnessed choking on lettuce from lunch and then when seen by attending a left facial droop developed. CT brain attack performed noted cerebral edema and CTA reviewed by Dr. Joiner with no LVO. Patient transferred to NSICU and given 1mg/kg of mannitol STAT. To be staffed by Dr. Joiner. SIGNATURE: ALLYSSA REYES PA-C PATIENT NAME: Ortiz Jacobs DATE: January 05, 2020 TIME: 2:34 PM PAGER/CONTACT #: [phone] [facility] STAFF PHYSICIAN NOTE OF PERSONAL INVOLVEMENT IN CARE I have reviewed the consult note obtained and documented by the physician geriatric assistant and I personally participated in the garcia components. I have discussed the case and management of the patient's care. The following comments revise or confirm relevant garcia components of their note. IMPRESSION: This is a 49 year old female who presents with a stroke team being caught on her at 14:00. The patient has had problems with intractable spine problems and was in with a possible recurrent cauda equinus syndrome and was being worked up for neurosurgery for possible need for lumbar spine surgery etc. In reviewing her chart she has a long-standing history of hemiplegic migraines the present with acute onset of left-sided weakness that she received intravenous TPA at [facility] once for in the past. In reviewing her records here at [facility] she has had at least 4 documented instances of recurring left hemiplegia. She was eating lunch today and it was noted that she choked on her solid by her nurse Marc. He called Dr. Guzman and it was quickly realized that she had a left-sided facial droop and left-sided weakness or stroke team was called. Both Allyssa QUINTANA and I responded to the stroke team. Although based upon her previous history I was highly certain that this was another hemiplegic migraine and she would not need intravenous TPA, nevertheless we proceeded as per protocol to obtain a stat brain attack noncontrast head CT as well as a neck brain CTA. The patient herself was anxious and tearful and tremulous and was not a good historian when I first evaluated her at 1405. She was however able to follow commands and clearly was weak on her left side. As soon as her imaging studies were completed I reviewed her CT angiogram of the neck and brain which was normal and then proceeded to look at her noncontrast head CT which much to my extreme surprise demonstrated diffuse cerebral edema with cerebellar tonsillar herniation. I did ask Allyssa QUINTANA to order immediately 1 g/kg of mannitol stat and her range for immediate transferred to the neuroscience intensive care unit and I immediately contacted Dr. Beverly Vora to expedite this transfer as well. She did remain alert following commands and tremulous though was improving as the mannitol was infusing and both Allyssa QUINTANA and myself followed her physically down to the CVICU bed (The NSICU physically was full so she was boarding in the CVICU) until Dr. Vora physicallyarrived which was very shortly after arrival to take over her care at that point in time. We did also have the mannitol immediately sent up to the floor surface to not delay administration of this imminently life and herniation saving medication and ran again as fast as possible wide-open on the floor. It was still infusing when she got to the ICU. There was not an adequate line in place for me to consider using hypertonic saline. I am assuming that perhaps she has spinal leak from her myelogram and is having sufficiently severe intracranial hypotension that she has developed diffuse cerebral edema a known rare complication of this problem. The neurosurgery team was also immediately summoned and in fact was at the bedside as soon as we arrived to the ICU for consideration of a suboccipital posterior craniectomy if needed to decompress her cerebellar tonsils since her tremulousness was the result of tonsillar herniation (cerebellar shiver). I personally spent 40 minutes of time providing immediate emergent unexpected neuro critical care to the patient spent coordinating emergency care and coordination of care and administration of the mannitol as noted above in this critically ill unstable patient who is an imminent risk for catastrophic neurological injury cerebellar tonsillar herniation and imminent in the absence of such intervention. SIGNATURE: Leandra Joiner MD PAGER: [phone] DATE of SERVICE: January 05, 2020 TIME of SERVICE: 4:59 PM Previous Version ALLYSSA REYES PA-C 01/05/2020 3:53 PM Edited Patient is a 49 year old female originally admitted for lower back pain with lower extremity weakness R>L who was last known well around [address] Horta evaluated her when she was choking on her salad. A Left facial droop was then noted and stroke team alerted. When looking further into her hx she has had multiple documented episodes of left sided weakness with left facial droop with a migraine lasting for days after. CT tia attack and CTA head and neck ordered. Stroke team conducted with Dr. Joiner. CT brain with cerebral edema with cerebellar tonsillar herniation patient transfer to NSICU. Previous Version ALLYSSA REYES PA-C 01/05/2020 4:04 PM Written NEUROLOGICAL INTENSIVE CARE UNIT HISTORY AND PHYSICAL REASON FOR ADMISSION: Cerebral Edema Subjective HPI: Patient is a 49 year old female originally admitted for lower back pain with lower extremity weakness R>L who was last known well around [address] Horta evaluated her when she was choking on her salad. A Left facial droop was then noted and stroke team alerted. When looking further into her hx she has had multiple documented episodes of left sided weakness with left facial droop with a migraine lasting for days after. CT tia attack and CTA head and neck ordered. Stroke team conducted with Dr. Joiner. CT brain with cerebral edema with cerebellar tonsillar herniation patient transfer to NSICU. PAST MEDICAL HISTORY Diagnosis Date - Back pain - Depression - Intracranial aneurysm - Sleep disorder - Smoking - Stomach cancer (HCC) 2009 - Stroke (HCC) 09/09/2010 Right Hemisphere - Uterine cancer (HCC) 2010 No past surgical history on file. FAMILY HISTORY Problem Relation Age of Onset - Arthritis Father - Coronary Artery Disease Father - Hypertension Father - Lipids Father - Arthritis Mother - Diabetes Mother - Hypertension Mother - Psychiatry Brother bipolar - Cancer Sister - Headache Sister - Psychiatry Sister bipolar ALLERGIES Allergen Reactions - Darvocet A500 [Prop* Shortness of Breath - Penicillins Swelling - Darvocet A500 [Prop* Unknown - Penicillins Unknown PRIOR TO ADMISSION MEDICATIONS: gabapentin (NEURONTIN) 300 mg capsule, Take 300 mg by mouth three times daily., Disp: , Rfl: fluticasone-salmeterol (ADVAIR DISKUS) 250-50 mcg/dose, Inhale 1 Puff as instructed twice daily., Disp: , Rfl: Multivitamins-Minerals- Lutein (MULTIVITAMIN 50 PLUS) tab, Take 1 tablet by mouth once daily., Disp: , Rfl: levETIRAcetam (KEPPRA) 250 mg tablet, Take 1,500 mg by mouth twice daily. , Disp: , Rfl: , 01/02/2020 at Unknown time melatonin 10 mg tab, Take 10 mg by mouth daily at bedtime., Disp: , Rfl: , 01/02/2020 at Unknown time ALBUTEROL INHALATION, Inhale as instructed twice daily., Disp: , Rfl: , 01/02/2020 at Unknown time fluticasone propionate (FLONASE ALLERGY RELIEF NASAL), Use 1 [place] in the nose twice daily. , Disp: , Rfl: , 01/02/2020 at Unknown time omeprazole (PRILOSEC) 20 mg ORAL capsule, Take 40 mg by mouth once daily. , Disp: , Rfl: 0, 01/02/2020 at Unknown time Social History Tobacco Use - Smoking status: Current Every Day Smoker Packs/day: 0.50 Years: 10.00 Pack years: 5.00 Types: Cigarettes Substance Use Topics - Alcohol use: Yes Comment: Occassionally - Drug use: No Employer And Job Title: No employer specified ([employer]) Years Of Education Completed: Not specified Marital Status: with 2 children REVIEW OF SYSTEMS: patient unable to answer at this time. Objective Vital Signs (Last 24hrs min/max): BP 123/74 Pulse 83 Temp 36.6 ?C (97.9 ?F) (Oral) Resp 17 Ht 175.3 cm (5' 9) Wt 102.7 kg (226 lb 6.4 oz) SpO2 98% BMI 33.43 kg/m? PHYSICAL EXAM: NEUROLOGICAL: GCS: Eyes: 4. Spontaneous Verbal: 3: Inappropriate words Motor: 6: Obeys Motor commands Total: 13 MOTOR STRENGTH: limited movement x4 able to resist gravity but unable to sustain. SENSATION: difficult to assess due to dysarthria. COORDINATION: unable to test due to weakness CV: RRR Pulm: Coarse BL, 2 L NL GI/: soft, nondistended and non tender Skin/Extremities: Edema- No Peripheral pulses- Present all extremities Wounds/Drsgs- No Breakdown- No DATA: Diagnostic tests reviewed for today's visit: Most recent labs and imaging results. Lines, Drains, and Airways Line Peripheral 01/03/20 0325 Admission to Hospital Midline Right Antecubital 20 Gauge 2 days Drain Indwelling Urinary Catheter 01/05/20 1544 Assessment Rodriguez 16 Fr less than 1 day PERSONAL INVOLVEMENT IN CARE: Reviewing initiation, responses and adjustments to therapies, coordination of care, and updating family with Staff Physician, Dr. Vora. LILIAN Rodríguez, PA 01/06/2020 7:16 AM Addendum Neurosurgery had been reconsulted after pt had an episode of choking on food and syncope or near syncope, stroke-like symptoms and severe h/a, whereby a stroke team had been initiated. Pt had CT/CTA of brain and was found to have tonsillar herniation and cerebral edema. Pt presented ICU alert but lethargic and disoriented with dysarthria, left facial droop and lue plegia. On exam pt was following commands, moving rue/rle well, hyperreflexive right patella, negative babinski. lue flaccid without sensation, lle very weak. She also had decreased sensation to the left face and forehead. Pupils equal and brisk. Pt seen earlier today by this PA. Pt stated at that time that she felt a lot better, pain and spasms had significantly improved. Pt did not c/o headache at that time. Dr. Fuentes (attending on this pt) and Dr. Hare (pulmonary physical therapist) were both notified following these new developments. 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 Pt was stephan flat and treatment by neurology initiated. No current neurosurgical intervention indicated. Will continue to follow. LILIAN Rodríguez 4:15 PM Previous Version ALLYSSA REYES PA-C 01/05/2020 4:48 PM Written Had epidural injection performed december 27 then started to develop lower back pain with paraesthesias. Myelogram performed 01/02- no cauda equina, no surgery indicated Pain management following -gabapentin -oxy IR -decadron -lidoderm patch ALLYSSA REYES PA-C 01/05/2020 4:55 PM Written 100 mannitol stat given during stroke team 01/04 300 ml 3% HTS, Stat 75ml/hr gtt started now. reverese trendelenburg CT brain in AM ALLYSSA REYES PA-C 01/05/2020 4:59 PM Written Rodriguez was removed today while on floor and now replaced for I/O accuracy UA and culture was sent out yesterday with no grown ALLYSSA REYES PA-C 01/05/2020 5:00 PM Written Cont home keppra. Will change to IV for now. ALLYSSA REYES PA-C 01/05/2020 5:01 PM Written Ha1c pending ISS Glucose checks q6h while NPO Michelle Talavera APRN.HEALTH AND PHYSICAL EDUCATION PROFESSOR 01/06/2020 6:26 AM Edited 01/04: arrived to NSICU from floor with intracranial hypotension. Left facial and LUE weakness. Transient episode of apnea that improved with Trandelenburg positioning and osmotherapy. CVP placed. 01/04 PM: spasms and pain to bilateral LE; nausea with emesis x1 > exam unchanged; pupils equal and reactive 01/05 episode of left facial droop, left arm and leg weakness and paraesthesia on left> Mannitol given; still unclear if dye reaction or CSF leak; cerebral edema 2/2 dye should improve 24-48 hours; CSF leak will be more prolonged recovery; repeated Caffeine infusion Previous Version ALLYSSA REYES PA-C 01/05/2020 5:31 PM Written Patient states that lactulose is the only medication that works for her Will cont ALLYSSA REYES PA-C 01/05/2020 5:32 PM Signed SERVICE DATE: 01/05/2020 SERVICE TIME: 5:32 PM NEUROLOGICAL INTENSIVE CARE UNIT HISTORY AND PHYSICAL REASON FOR ADMISSION: Cerebral Edema Subjective HPI: Patient is a 49 year old female originally admitted for lower back pain with lower extremity weakness R>L who was last known well around [address] Horta evaluated her when she was choking on her salad. A Left facial droop was then noted and stroke team alerted. When looking further into her hx she has had multiple documented episodes of left sided weakness with left facial droop with a migraine lasting for days after. CT tia attack and CTA head and neck ordered. Stroke team conducted with Dr. Joiner. CT brain wit (more content not included)... Normal [facility] Hemogramon 01-03-2020 Erythrocyte distribution width (RBC) [Ratio] 13.2 % Normal 11.7-14.4 [facility] Comment on above: Performed By: #### C BC1 #### [address] [address] Hematocrit (Bld) [Volume fraction] 44.7 % Normal 34.1-44.9 [facility] Comment on above: Performed By: #### C BC1 #### [address] [address] Hemoglobin (Bld) [Mass/Vol] 14.6 g/dL Normal 11.2-15.7 [facility] Comment on above: Performed By: #### C BC1 #### [address] [address] MCH (RBC) [Entitic mass] 32.4 pg High 25.6-32.2 [facility] Comment on above: Performed By: #### C BC1 #### [address] [place], [place] [address] MCHC (RBC) [Mass/Vol] 32.7 % Normal 31.6-34.8 [facility] Comment on above: Performed By: #### C BC1 #### [facility] [address] [place] [address] MCV (RBC) [Entitic vol] 99.1 fL High 79.4-94.8 [facility] Comment on above: Performed By: #### C BC1 #### [facility] [address] [place] [address] Platelet mean volume (Bld) [Entitic vol] 10.4 fL Normal 9.4-12.3 [facility] Comment on above: Performed By: #### C BC1 #### [facility] [address] [place] [address] Platelets (Bld) [#/Vol] 292 thou/cmm Normal 182-369 [facility] Comment on above: Performed By: #### C BC1 #### [facility] [address] [place] [address] RBC (Bld) [#/Vol] 4.51 mil/cmm Normal 3.93-5.22 [facility] Comment on above: Performed By: #### C BC1 #### [facility] [address] [place] [address] RDW SD 49.0 fl High 36.4-46.3 [facility] Comment on above: Performed By: #### C BC1 #### [facility] [address] [place] [address] WBC (Bld) [#/Vol] 10.75 thou/cmm High 3.98-10.04 [facility] Comment on above: Performed By: #### C BC1 #### [facility] [address] [place] [address] Magnesium Bloodon 01-03-2020 Magnesium [Mass/Vol] 2.2 mg/dL Normal 1.7-2.3 [facility] Comment on above: Performed By: #### M AG #### [facility] [address] [place], [place] [address] PROGRESSon 01-03-2020 PROGRESS HNO ID: [id number] Author: Ivy Yeh Service: Hospital Medicine Author Type: Physician Type: Progress Notes Filed: 01/03/2020 2:16 PM Note Text: Patient seen and examined by day rounder in AM. Patient continues to complain of episodes of chalie horse cramping in her legs, L buttock, and sometimes as vaginal spasms. In between these spasms she notes a sharp stabbing pain in the center of her low back that feels sharp/knife-like. Her rodriguez catheter is in place and draining well. A UA has been ordered and has moderate leuk esterase and small amout of hgb without rbcs, and no bacteria or nitrates. She has been evaluated by neuroSx who is awaiting myelogram. I have adjusted her pain medications as she reports more relief from morphine than from dilaudid, added flexeril, I have also added supportive therapies such as warm compress, and consulted pain management for further evaluation as she follows with pain management and this episode began several days after spinal injection. See H and P from same date for further details. Normal [facility] US DVT LOWER BILon 0 US DVT LOWER JULI * * *Final Report* * * DATE OF EXAM: Jan 03 2020 3:31PM [facility] 1005 - US DVT LOWER JULI / PROCEDURE REASON: Claudication, arm or leg * * * * Physician Interpretation * * * * EXAMINATION: RIGHT AND LEFT LOWER EXTREMITY DEEP VENOUS ULTRASOUND WITH DOPPLER IMAGING CLINICAL HISTORY: TECHNIQUE: Grayscale with compression maneuvers, color Doppler and spectral Doppler at rest and with augmentation of the right and left distal external iliac, common femoral, femoral and popliteal veins was performed. Grayscale with compression maneuvers of the right and left peroneal and posterior tibial veins was also performed. The right and left great and small saphenous veins were also imaged in grayscale with compression maneuvers at their insertion to the deep system. Images were obtained and stored in a permanent archive. MQ: USLEB_1 COMPARISON: None RESULT: RIGHT LOWER EXTREMITY PROXIMAL DEEP VEINS Distal External Iliac and Common Femoral Veins: Compression: Normal Doppler: Normal, spontaneous respirophasic flow. Normal response to augmentation. Femoral vein: Compression: Normal Doppler: Normal, spontaneous respirophasic flow. Normal response to augmentation. Popliteal vein: Compression: Normal Doppler: Normal, spontaneous respirophasic flow. Normal response to augmentation. CALF DEEP VEINS Peroneal veins: Normal compression. Posterior tibial veins: Normal compression. Gastrocnemius and Soleal veins: Not imaged. SUPERFICIAL VEINS Great saphenous: Patent and compressible at insertion into common femoral vein; not otherwise assessed. Small Saphenous: Not assessed LEFT LOWER EXTREMITY PROXIMAL DEEP VEINS Distal External Iliac and Common Femoral Veins: Compression: Normal Doppler: Normal, spontaneous respirophasic flow. Normal response to augmentation. Femoral vein: Compression: Normal Doppler: Normal, spontaneous respirophasic flow. Normal response to augmentation. Popliteal vein: Compression: Normal Doppler: Normal, spontaneous respirophasic flow. Normal response to augmentation. CALF DEEP VEINS Peroneal veins: Normal compression. Posterior tibial veins: Normal compression. Gastrocnemius and Soleal veins: Not imaged. SUPERFICIAL VEINS Great saphenous: Patent and compressible at insertion into common femoral vein; not otherwise assessed. Small Saphenous: Not assessed IMPRESSION: Negative study for proximal DVT in the left and right lower extremities. Negative study for calf DVT in the left and right lower extremities. Negative study for superficial thrombophlebitis in the imaged segments of the left and right lower extremities. Radio Station Engineer: [facility] Transcribe Date/Time: Jan 03 2020 3:46P Dictated by : CHIKIS BRO MD This examination was interpreted and the report reviewed and electronically signed by: CHIKIS BRO MD on Jan 03 2020 3:47PM EST Normal [facility] Urinalysis Routineon 020 Bacteria LM.HPF (Urine sed) [#/Area] NONE Normal None [facility] Comment on above: Performed By: #### U RIN2 #### [place] [address] Ep Cells Urine 1.0 /hpf Normal 0.0-5.0 [facility] Comment on above: Performed By: #### U RIN2 #### [place] [address] Hyaline Cast 0.3 /lpf Normal 0.0-1.0 [facility] Comment on above: Performed By: #### U RIN2 #### [place] [id number] RBC LM.HPF (Urine sed) [#/Area] 2.8 /[HPF] Normal 0.0-5.0 [facility] Comment on above: Performed By: #### U RIN2 #### [facility] [address] [place] [address] WBC LM.HPF (Urine sed) [#/Area] 22.5 /[HPF] High 0.0-5.0 [facility] Comment on above: Performed By: #### U RIN2 #### [facility] [address] [place] [address] Appearance (U) CLEAR Normal [facility] Comment on above: Performed By: #### U RIN2 #### [place] [address] Bilirubin (U) [Mass/Vol] Negative Normal Negative [facility] Comment on above: Performed By: #### U RIN2 #### [place] [address] Color (U) YELLOW Normal [facility] Comment on above: Performed By: #### U RIN2 #### [place] [address] Glucose Ql (U) Negative Normal Negative [facility] Comment on above: Performed By: #### U RIN2 #### [place] [address] Hemoglobin,Urine SMALL Abnormal Negative [facility] Comment on above: Performed By: #### U RIN2 #### [place] [address] Ketone Urine Negative Normal Negative [facility] Comment on above: Performed By: #### U RIN2 #### [place] [address] Leukocytes Esterase MODERATE Abnormal Negative [facility] Comment on above: Performed By: #### U RIN2 #### [place] [address] Nitrites Urine Negative Normal Negative [facility] Comment on above: Performed By: #### U RIN2 #### [place] [address] pH (U) 5.5 [pH] Normal 5.0-8.0 [facility] Comment on above: Performed By: #### U RIN2 #### [facility] [address] [place] [address] Protein (U) [Mass/Vol] Negative Normal Negative [facility] Comment on above: Performed By: #### U RIN2 #### [facility] [address] [place] [address] Specific [place], Ur 1.019 Normal 1.005-1.030 [facility] Comment on above: Performed By: #### U RIN2 #### [facility] [address] [place] [address] Urobilinogen,Ur 0.2 EU/dL Normal 0.2-1.0 [facility] Comment on above: Performed By: #### U RIN2 #### [facility] [address] [place] [address] XR LUMBAR 2V FLEX/EXTon 12-22 XR LUMBAR 2V FLEX/EXT * * *Final Report* * * DATE OF EXAM: Jan 03 2020 7:58PM [id number] - XR LUMBAR 2V FLEX/EXT / PROCEDURE REASON: Back pain, progressive neurologic deficit * * * * Physician Interpretation * * * * EXAMINATION: XR LUMBAR 3V AP/LAT/L5-S1, XR LUMBAR 2V FLEX/EXT HISTORY: SURGERY TO LUMBAR SPINE X 3 YEARS AGO. PATIENT STATES SHE HAD PAIN INJECTIONS X 6 DAYS AGO. COMPLETE MYELOGRAM EARLIER TODAY. CRAMPING IN LEGS AND BUTTOCKS. Back pain, prior surgery, new or progressive sx. TECHNIQUE: XR LUMBAR 3V AP/LAT/L5-S1, XR LUMBAR 2V FLEX/EXT Laterality: NOT APPLICABLE Number of different views (projections): 2 M: XB_1 COMPARISON: Lumbar myelogram done today; RESULT: There are bilateral pedicle screws and posterior stabilization rods spanning L4-S1 bilaterally. Hardware appears intact. There are 5 nonrib-bearing lumbar type vertebral bodies. The vertebral bodies are maintained in height and alignment on neutral view. No subluxations are produced on flexion or extension maneuvers. Moderate degenerative disc space narrowing L4-L5 and L5-S1. More mild generalized degenerative disc space narrowing. Myelographic contrast is noted within the thecal sac. No other significant abnormality. IMPRESSION: No subluxations or evidence of dynamic instability. Correlate with myelogram results. Radio Station Engineer: [facility] Transcribe Date/Time: Jan 03 2020 8:00P Dictated by : CHIKIS BRO MD This examination was interpreted and the report reviewed and electronically signed by: CHIKIS BRO MD on Jan 03 2020 8:03PM EST Normal [facility] XR LUMBAR 3V AP/LAT/L5-S1on 01-03-2020 XR LUMBAR 3V AP/LAT/L5-S1 * * *Final Report* * * DATE OF EXAM: Jan 03 2020 7:58PM [id number] - XR LUMBAR 3V AP/LAT/L5-S1 / PROCEDURE REASON: Back pain, prior surgery, new or progressive sx * * * * Physician Interpretation * * * * EXAMINATION: XR LUMBAR 3V AP/LAT/L5-S1, XR LUMBAR 2V FLEX/EXT HISTORY: SURGERY TO LUMBAR SPINE X 3 YEARS AGO. PATIENT STATES SHE HAD PAIN INJECTIONS X 6 DAYS AGO. COMPLETE MYELOGRAM EARLIER TODAY. CRAMPING IN LEGS AND BUTTOCKS. Back pain, prior surgery, new or progressive sx. TECHNIQUE: XR LUMBAR 3V AP/LAT/L5-S1, XR LUMBAR 2V FLEX/EXT Laterality: NOT APPLICABLE Number of different views (projections): 2 M: XB_1 COMPARISON: Lumbar myelogram done today; RESULT: There are bilateral pedicle screws and posterior stabilization rods spanning L4-S1 bilaterally. Hardware appears intact. There are 5 nonrib-bearing lumbar type vertebral bodies. The vertebral bodies are maintained in height and alignment on neutral view. No subluxations are produced on flexion or extension maneuvers. Moderate degenerative disc space narrowing L4-L5 and L5-S1. More mild generalized degenerative disc space narrowing. Myelographic contrast is noted within the thecal sac. No other significant abnormality. IMPRESSION: No subluxations or evidence of dynamic instability. Correlate with myelogram results. Radio Station Engineer: [employer] Transcribe Date/Time: Jan 03 2020 8:00P Dictated by : CHIKIS BRO MD This examination was interpreted and the report reviewed and electronically signed by: CHIKIS BRO MD on Jan 03 2020 8:03PM EST Normal [facility] XR MYELOGRAM COMPL SPINE DIF F MDon 01-03-2020 XR MYELOGRAM COMPL DOROTA RAMIREZ MD * * *Final Report* * * DATE OF EXAM: Jan 03 2020 2:58PM [id number] - XR MYELOGRAM COMPL DOROTA RAMIREZ MD / PROCEDURE REASON: Spinal cord injury * * * * Physician Interpretation * * * * PROCEDURE: Intrathecal injection of omnipaque under fluoroscopy guidance. HISTORY: The patient is a 49 years year old Female who presented with spinal stenosis. Consent: The risks, benefits, treatment options, potential complications, equipment, and personnel to be involved were discussed (including the risks of radiation exposure, contrast and anesthesia administration) with the patient. All of her questions were answered and consent was obtained. The patient indicated she was willing to proceed. General: A) Medication Reconciliation: The patient's medications and allergies were reviewed in the electronic medical record and reconciled to the proposed procedure/treatment. B) Pre-Procedure Medications: Medication #1: None C) Positioning: The patient was placed Prone on the Fluoroscopy table. D) The Lumbar dorsal soft tissues. were then sterile prepped and draped. E) Time Out: A time out was performed immediately prior to procedure start with the nursing, anesthesia and interventional team, correctly identifying the name, medical record number, procedure, anatomy (including marking of site and side), patient position, procedure consent form, relevant diagnostic and radiology test results, antibiotic administration, safety precautions, and procedure-specific equipment needs. Timeout Affirmation (if attending not present): CERTIFIED LEGAL SECRETARY SPECIALIST and RT present. F) Anesthesia Type: administration of local anesthesia. Local Anesthesia: 4 mL 2% Lidocaine G) Anesthesia Was Administered For A Total Of None. H) Patient Monitoring: N/A TECHNIQUE/RESULT: A) Access Site: 22 gauge spinal needle from a Midline approach at the L4-L5 level. B) Counting reference: Lumbosacral junction. For the purposes of this report, L4-5 is considered the level of the iliac crest. C) Procedure Details: Using sterile procedure, local anesthesia was introduced to the skin and subcutaneous tissues as outlined above. Diagnostic Myelo Details: Under fluoroscopic guidance, the needle was carefully advanced into the lumbar subarachnoid space resulting in free flow of CSF. 12 ml of OMNIPAQUE 300 Intrathecal contrast was administered. Therapeutic Volume: 0 mL of CSF was withdrawn and forwarded to the lab for analysis. CSF Color: Clear Diagnostic Myelogram Results: Myelogram Type: Lumbar, thoracic, and cervical Primary Site Results: NA Secondary Site Results: Not Applicable. D) Estimated Blood Loss: 0 mL E) Type of Removed Specimens: None F) Number of Specimens: None Fluoroscopic Radiation Summary: Fluoroscopic guidance was performed in conjunction with the endoscope technician. Plane A, Air Kerma: 97.4 mGy Dose Area Product (DAP): 36835.2 mGy*cm Fluoro time: 0:12 min: sec Post-Procedure: Conclusion: The patient was transferred to the regular nursing floor in stable condition. Immediate Complications: None. Delayed Complications (will be reported as an addendum to the original report): None apparent at this time Timeout Time and Procedure Start Time: 1435 Procedure End Time and Sign Out Time: 1450 IMPRESSION: Technically successful myelogram The procedure was performed by: Reuben Khan CNP Radio Station Engineer: [employer] Transcribe Date/Time: Jan 03 2020 3:17P Dictated by : REUBEN KHAN CNP This examination was interpreted and the report reviewed and electronically signed by: REUBEN KHAN CNP on Jan 03 2020 3:18PM EST Normal [facility] Basic Metabolic Panelon - Anion gap [Moles/Vol] 12 Normal [facility] Comment on above: Performed By: #### B MP3 #### [facility] [address], [place] Calcium [Mass/Vol] 8.9 mg/dL Normal 8.4-10.4 [facility] Comment on above: Performed By: #### B MP3 #### [facility] [address], [place] CO2 [Moles/Vol] 13 mmol/L Low 22-30 [facility] Comment on above: Performed By: #### B MP3 #### [facility] [address], [place] Glucose [Mass/Vol] 91 mg/dL Normal 70-100 [facility] Comment on above: Performed By: #### B MP3 #### [place] [address] [address], [place] Urea nitrogen [Mass/Vol] 8 mg/dL Normal 7-20 [facility] Comment on above: Performed By: #### B MP3 #### [facility] [address] [place] [address] Creatinine [Mass/Vol] 0.60 mg/dL Normal 0.52-1.25 [facility] Comment on above: Performed By: #### B MP3 #### [facility] [address] [place] [address] GFR/1.73 sq M predicted among blacks MDRD (S/P/Bld) [Vol rate/Area] mL/min/{1.73_m2} Normal >60 [facility] Comment on above: Performed By: #### B MP3 #### [facility] [address], [place] GFR/1.73 sq M predicted among non-blacks MDRD (S/P/Bld) [Vol rate/Area] mL/min/{1.73_m2} Normal >60 [facility] Comment on above: Result Comment: Sour ce- MDRD equation with creatinine calibration to IDMS(NKDEP) eGFR not recommended for drug dose adjustment Performed By: #### B MP3 #### [facility] [address] [place] [address] Chloride [Moles/Vol] 112 mmol/L High 98-107 [facility] Comment on above: Performed By: #### B MP3 #### [facility] [address] [place] [address] Potassium [Moles/Vol] 4.7 mmol/L Normal 3.5-5.1 [facility] Comment on above: Result Comment: Slig htly hemolysed, interpret with caution. Performed By: #### B MP3 #### [facility] [address] [place] [address] Sodium [Moles/Vol] 137 mmol/L Normal 135-145 [facility] Comment on above: Performed By: #### B MP3 #### [facility] [address] [place] [address] Basic Metabolic Panelon 01-2 6-2020 Anion gap [Moles/Vol] 5 Normal [facility] Comment on above: Performed By: #### B MP3 #### [facility] [address] [place] [address] Calcium [Mass/Vol] 8.3 mg/dL Low 8.4-10.4 [facility] Comment on above: Performed By: #### B MP3 #### [facility] [address] [place] [address] CO2 [Moles/Vol] 24 mmol/L Normal 22-30 [facility] Comment on above: Performed By: #### B MP3 #### [facility] [address] [place] [address] Glucose [Mass/Vol] 90 mg/dL Normal 70-100 [facility] Comment on above: Performed By: #### B MP3 #### [place] [address] [place] [address] Urea nitrogen [Mass/Vol] 10 mg/dL Normal 7-20 [facility] Comment on above: Performed By: #### B MP3 #### [facility] [address] [place] [address] Creatinine [Mass/Vol] 0.57 mg/dL Normal 0.52-1.25 [facility] Comment on above: Performed By: #### B MP3 #### [facility] [address] [place] [address] GFR/1.73 sq M predicted among blacks MDRD (S/P/Bld) [Vol rate/Area] mL/min/{1.73_m2} Normal >60 [facility] Comment on above: Performed By: #### B MP3 #### [facility] [address] [place] [address] GFR/1.73 sq M predicted among non-blacks MDRD (S/P/Bld) [Vol rate/Area] mL/min/{1.73_m2} Normal >60 [facility] Comment on above: Result Comment: Sour ce- MDRD equation with creatinine calibration to IDMS(NKDEP) eGFR not recommended for drug dose adjustment Performed By: #### B MP3 #### [facility] [address] [place] [address] Potassium [Moles/Vol] 4.0 mmol/L Normal 3.5-5.1 [facility] Comment on above: Performed By: #### B MP3 #### [facility] [address], [place] Chloride [Moles/Vol] 108 mmol/L High 98-107 [facility] Comment on above: Performed By: #### B MP3 #### [facility] [address], [place] Sodium [Moles/Vol] 137 mmol/L Normal 135-145 [facility] Comment on above: Performed By: #### B MP3 #### [place] [address] [address], [place] CR Chest Portableon 09-18-19 20 CR Chest Portable Patient Name: ORTIZ JACOBS Diagnostic Radiology Exam Date/Time 09/18/2019 15:49:54 EST Exam CR Chest Portable Ordering Physician [id number] NICOLE WILKES Accession Number [id number] CPT4 Codes 74895 () Reason For Exam cough Report CHEST (Frontal View) History: Respiratory abnormality Comparison: 11/27/2014 Findings: Frontal portable chest view shows linear small left basilar atelectasis. Both lung show interstitial prominence without acute infiltrate or congestion. The heart is normal in size. There is no mediastinal widening or pleural effusion. There is surgical hardware in the lower cervical spine. IMPRESSION: No acute pulmonary process. Report Dictated on Final Dictated: 09/18/2019 5:00 pm Dictating Physician: MD PHILLIPS AHMAD Signed Date and Time: 09/18/2019 5:01 pm Signed by: MD PHILLIPS AHMAD Transcribed Date and Time: 09/18/2019 5:00 Normal [facility] Basic Metabolic Panelon 08-25 Calcium [Mass/Vol] 9.2 mg/dL Normal 8.4-10.4 [facility] Comment on above: Performed By: #### H EMDF, BMP3 #### [facility] [address], [place] Glucose [Mass/Vol] 83 mg/dL Normal 70-100 [facility] Comment on above: Performed By: #### H RUPESH BMP3 #### [place] [address] [address], [place] Urea nitrogen [Mass/Vol] 8 mg/dL Normal 7-20 [facility] Comment on above: Performed By: #### H RUPESH BMP3 #### [place] [address] [address], [place] Anion gap [Moles/Vol] 10 Normal [facility] Comment on above: Performed By: #### H RUPESH BMP3 #### [place] [address] [address], [place] CO2 [Moles/Vol] 23 mmol/L Normal 22-30 [facility] Comment on above: Performed By: #### H RUPESH BMP3 #### [place] [address] [address], [place] Creatinine [Mass/Vol] 0.53 mg/dL Normal 0.52-1.25 [facility] Comment on above: Performed By: #### H RUPESH BMP3 #### [place] [address] [address], [place] GFR/1.73 sq M predicted among blacks MDRD (S/P/Bld) [Vol rate/Area] mL/min/{1.73_m2} Normal >60 [facility] Comment on above: Performed By: #### H RUPESH BMP3 #### [place] [address] [address], [place] GFR/1.73 sq M predicted among non-blacks MDRD (S/P/Bld) [Vol rate/Area] mL/min/{1.73_m2} Normal >60 [facility] Comment on above: Result Comment: Sour ce- MDRD equation with creatinine calibration to IDMS(NKDEP) eGFR not recommended for drug dose adjustment Performed By: #### H RUPESH BMP3 #### [place] [address] [address], [place] Potassium [Moles/Vol] 4.1 mmol/L Normal 3.5-5.1 [facility] Comment on above: Result Comment: Slig htly hemolysed, interpret with caution. Performed By: #### H TOBY GODDARD3 #### [place] [address] [address], [place] Chloride [Moles/Vol] 108 mmol/L High 98-107 [facility] Comment on above: Performed By: #### H TOBY GODDARD3 #### [place] [address] [address], [place] Sodium [Moles/Vol] 141 mmol/L Normal 135-145 [facility] Comment on above: Performed By: #### H TOBY GODDARD3 #### [place] [address] [address], [place] Complete Urinalysison 2019 Appearance (U) Clear Normal Clear [facility] Comment on above: Performed By: #### C UA2 #### [place] [address] [address], [place] Bacteria LM.HPF (Urine sed) [#/Area] Negative Normal Negative [facility] Comment on above: Performed By: #### C UA2 #### [address] Bilirubin,Urine Negative Normal Negative [facility] Comment on above: Performed By: #### C UA2 #### [place] [address] [address], [place] Cast, Hyaline Negative Normal Negative [facility] Comment on above: Performed By: #### C UA2 #### [place] [address] [place], [place] Color (U) Yellow Normal Lt. Yellow [facility] Comment on above: Performed By: #### C UA2 #### [address] Glucose Ql (U) Normal Normal Normal (<70) [facility] Comment on above: Performed By: #### C UA2 #### [place] [address] [address], [place] Ketone,Urine Negative Normal Negative [facility] Comment on above: Performed By: #### C UA2 #### [place] [address] [address], [place] Leukocytes,Urine 25 La/uL Normal Negative [facility] Comment on above: Performed By: #### C UA2 #### [place] [address] [address], [place] Mucous Threads Few Normal Negative [facility] Comment on above: Performed By: #### C UA2 #### [place] [address] [address], [place] Nitrites,Urine Negative Normal Negative [facility] Comment on above: Performed By: #### C UA2 #### [place] [address] [address], [place] Occult Blood,Urine 0.06 mg/dL Normal Negative [facility] Comment on above: Performed By: #### C UA2 #### [place] [address] [address], [place] pH (U) 5.0 Normal 5.0-8.0 [facility] Comment on above: Performed By: #### C UA2 #### [place] [address] [address], [place] Protein (U) [Mass/Vol] 20 mg/dL Normal Negative [facility] Comment on above: Performed By: #### C UA2 #### [place] [address] [address], [place] RBC LM.HPF (Urine sed) [#/Area] 6 - 10 Normal 0-2 [facility] Comment on above: Performed By: #### C UA2 #### [place] [address] [address], [place] Specific [place],Urine 1.021 Normal 1.005-1.030 [facility] Comment on above: Performed By: #### C UA2 #### [place] [address] [address], [place] Squamous Epithelial 0 - 2 Normal 3-5 [facility] Comment on above: Performed By: #### C UA2 #### [facility] [address], [place] Urobilinogen,Urine Normal Normal Normal (0-1) [facility] Comment on above: Performed By: #### C UA2 #### [facility] [address], [place] WBC LM.HPF (Urine sed) [#/Area] 3 - 5 Normal 0-5 [facility] Comment on above: Performed By: #### C UA2 #### [facility] [address], [place] Hemogram w/ Autodiffon 09-17 Abs Baso Cnt 0.0 10*3/uL Normal 0.0-0.2 [facility] Comment on above: Performed By: #### H EMDF, BMP3 #### [place] [address] [address], [place] Abs Neutrophile Cnt 5.0 10*3/uL Normal 1.8-7.0 [facility] Comment on above: Performed By: #### H EMDF, BMP3 #### [place] [address] [address], [place] Basophils/100 WBC (Bld) 0.6 % Normal 0.0-2.0 [facility] Comment on above: Performed By: #### H EMDF, BMP3 #### [place] [address] [address], [place] Eosinophils (Bld) [#/Vol] 0.1 10*3/uL Normal 0.0-0.5 [facility] Comment on above: Performed By: #### H EMDF, BMP3 #### [place] [address] [address], [place] Eosinophils/100 WBC (Bld) 0.8 % Low 1.0-6.0 [facility] Comment on above: Performed By: #### H EMDF, BMP3 #### [place] [address] [place], [place] Erythrocyte distribution width (RBC) [Ratio] 13.5 % Normal 11.5-14.5 [facility] Comment on above: Performed By: #### H EMDF BMP3 #### [place] [address] [address], [place] Granulocytes/100 WBC (Bld) 60.0 % Normal 40.0-80.0 [facility] Comment on above: Performed By: #### H EMDF BMP3 #### [place] [address] [address], [place] Hematocrit (Bld) [Volume fraction] 43.4 % Normal 35.0-47.0 [facility] Comment on above: Performed By: #### H EMDF BMP3 #### [place] [address] [address], [place] Hemoglobin (Bld) [Mass/Vol] 14.6 g/dL Normal 11.7-16.0 [facility] Comment on above: Performed By: #### H RUPESH BMP3 #### [place] [address] [place], [place] Lymphocytes (Bld) [#/Vol] 2.7 10*3/uL Normal 1.0-4.3 [facility] Comment on above: Performed By: #### H EMDF BMP3 #### [place] [address] [place], [place] Lymphocytes/100 WBC (Bld) 32.3 % Normal 20.0-40.0 [facility] Comment on above: Performed By: #### H EMDF BMP3 #### [place] [address] [address], [place] MCH (RBC) [Entitic mass] 32.4 pg Normal 26.0-34.0 [facility] Comment on above: Performed By: #### H EMDF BMP3 #### [address] MCHC (RBC) [Mass/Vol] 33.7 % Normal 32.0-36.0 [facility] Comment on above: Performed By: #### H EMDF, BMP3 #### [place] [address] [address], [place] MCV (RBC) [Entitic vol] 96.1 fL Normal 79.0-98.0 [facility] Comment on above: Performed By: #### Krystyna GODDARD BMP3 #### [place] [address] [place], [place] Monocytes (Bld) [#/Vol] 0.5 10*3/uL Normal 0.0-0.8 [facility] Comment on above: Performed By: #### Krystyna GODDARD BMP3 #### [place] [address] [place], [place] Monocytes/100 WBC (Bld) 6.3 % Normal 2.0-10.0 [facility] Comment on above: Performed By: #### H RUPESH BMP3 #### [address] Platelet mean volume (Bld) [Entitic vol] 8.8 fL Normal 7.4-10.4 [facility] Comment on above: Performed By: #### H RUPESH BMP3 #### [address] Platelets (Bld) [#/Vol] 284 10*3/uL Normal 140-440 [facility] Comment on above: Performed By: #### H RUPESH BMP3 #### [address] RBC (Bld) [#/Vol] 4.52 10*6/uL Normal 3.80-5.20 [facility] Comment on above: Performed By: #### H RUPESH, BMP3 #### [place] [address] [place], [place] WBC (Bld) [#/Vol] 8.3 10*3/uL Normal 3.6-10.7 [facility] Comment on above: Performed By: #### H RUPESH, BMP3 #### [address] Basic Metabolic Panelon 01-2 Anion gap [Moles/Vol] 8 Normal [facility] Comment on above: Performed By: #### H RUPESH, BMP3 #### [facility] [address] [place] [address] Calcium [Mass/Vol] 10.0 mg/dL Normal 8.4-10.4 [facility] Comment on above: Performed By: #### H RUPESH, BMP3 #### [facility] [address] [place] [address] CO2 [Moles/Vol] 27 mmol/L Normal 22-30 [facility] Comment on above: Performed By: #### H RUPESH, BMP3 #### [facility] [address] [place] [address] Glucose [Mass/Vol] 87 mg/dL Normal 70-100 [facility] Comment on above: Performed By: #### H RUPESH, BMP3 #### [facility] [address] [place] [address] Urea nitrogen [Mass/Vol] 13 mg/dL Normal 7-20 [facility] Comment on above: Performed By: #### H RUPESH BMP3 #### [facility] [address] [place] [address] Creatinine [Mass/Vol] 0.73 mg/dL Normal 0.52-1.25 [facility] Comment on above: Performed By: #### H RUPESH, BMP3 #### [facility] [address] [place] [address] GFR/1.73 sq M predicted among blacks MDRD (S/P/Bld) [Vol rate/Area] mL/min/{1.73_m2} Normal >60 [facility] Comment on above: Performed By: #### H RUPESH, BMP3 #### [facility] [address] [place] [address] GFR/1.73 sq M predicted among non-blacks MDRD (S/P/Bld) [Vol rate/Area] mL/min/{1.73_m2} Normal >60 [facility] Comment on above: Result Comment: Sour ce- MDRD equation with creatinine calibration to IDMS(NKDEP) eGFR not recommended for drug dose adjustment Performed By: #### H RUPESH, BMP3 #### [facility] [address] [place] [address] Chloride [Moles/Vol] 105 mmol/L Normal 98-107 [facility] Comment on above: Performed By: #### H BONITAF, BMP3 #### [facility] [address] [place] [address] Potassium [Moles/Vol] 5.1 mmol/L Normal 3.5-5.1 [facility] Comment on above: Performed By: #### H RUPESH, BMP3 #### [facility] [address] [place] [address] Sodium [Moles/Vol] 141 mmol/L Normal 135-145 [facility] Comment on above: Performed By: #### H RUPESH, BMP3 #### [facility] [address] [place] [address] Basic Metabolic PanelOrdered By: Ari Sotomayor on 09-13-2019 Anion gap [Moles/Vol] 8 mmol/L [facility] Work Phone: Calcium [Mass/Vol] 10.0 mg/dL 8.4 - 10. 4 mg/dL [facility] Work Phone: Chloride [Moles/Vol] 105 mmol/L 98 - 10 7 mmol/L [facility] Work Phone: CO2 [Moles/Vol] 27 mmol/L 22 - 30 mmol/L [facility] Work Phone: Creatinine [Mass/Vol] 0.73 mg/dL 0.52 - 1.25 mg/dL [facility] Work Phone: EGFR IF NonAfrican Tajik >60.0 >60 mL/min [facility] Work Phone: Comment on above: Source- MDRD equatio n with creatinine calibration to IDMS(NKDEP) eGFR not recommended for drug dose adjustment GFR/1.73 sq M.predicted among blacks MDRD (S/P/Bld) [Vol rate/Area] mL/min/{1.73_m2} >60 mL/min [facility] Work Phone: Glucose [Mass/Vol] 87 mg/dL 70 - 100 mg/dL [facility] Work Phone: 1 Potassium [Moles/Vol] 5.1 mmol/L 3.5 - 5.1 mmol/L [facility] Work Phone: Sodium [Moles/Vol] 141 mmol/L 135 - 145 mmol/L [facility] Work Phone: Urea nitrogen [Mass/Vol] 13 mg/dL 7 - 20 mg/dL [facility] Work Phone: 1 Test Performed by [facility], [address] [place], [place] [address] , [place] [address] [employer] Work Phone: CBC Auto DifferentialOrdered By: Ari Sotomayor on 09-13-2019 Absolute Baso # 0.1 10*3/uL 0 - 0.2 10*3/uL [facility] Work Phone: Absolute Neut # 4.2 10*3/uL 1.8 - 7 10*3/uL [facility] Work Phone: Basophils/100 WBC (Bld) 0.8 % 0 - 2 % [facility] Work Phone: Eosinophils (Bld) [#/Vol] 0.1 10*3/uL 0 - 0.5 10*3/uL [employer] Work Phone: Eosinophils/100 WBC (Bld) 0.9 % Low 1 - 6 % [facility] Work Phone: Erythrocyte distribution width (RBC) [Ratio] 13.7 % 11.5 - 14.5 % [facility] Work Phone: Granulocytes/100 WBC (Bld) 58.8 % 40 - 80 % [facility] Work Phone: Hematocrit (Bld) [Volume fraction] 49.8 % High 35 - 47 % [facility] Work Phone: Hemoglobin (Bld) [Mass/Vol] 16.6 g/dL High 11.7 - 16 g/dL [facility] Work Phone: Interpretation and review of laboratory results Abnormal [facility] Work Phone: [phone] Lymphocytes (Bld) [#/Vol] 2.2 10*3/uL 1 - 4.3 10*3/uL [facility] Work Phone: 1 22 Lymphocytes/100 WBC (Bld) 31.2 % 20 - 40 % [facility] Work Phone: 1 MCH (RBC) [Entitic mass] 32.4 pg 26 - 34 pg [facility] Work Phone: 1 MCHC 33.4 % 32 - 36 % [facility] Work Phone: 1 MCV (RBC) [Entitic vol] 97.0 fL 79 - 98 fL S [facility] Work Phone: 1 Monocytes (Bld) [#/Vol] 0.6 10*3/uL 0 - 0.8 10*3/uL [employer] Work Phone: 1 Monocytes/100 WBC (Bld) 8.3 % 2 - 10 % [facility] Work Phone: 1 Platelet mean volume (Bld) [Entitic vol] 7.9 fL 7.4 - 10.4 fL [employer] Work Phone: 1 22 Platelets (Bld) [#/Vol] 337 10*3/uL 140 - 440 10*3/uL [employer] Work Phone: 1 22 RBC (Bld) [#/Vol] 5.14 10*6/uL 3.8 - 5.2 10*6/uL [employer] Work Phone: 22 WBC (Bld) [#/Vol] 7.1 10*3/uL 3.6 - 10.7 10*3/uL [employer] Work Phone: 1 Test Performed by [facility], [address] [place] [address] [place] [address] [employer] Work Phone: [phone] Abdomen Pelvis Wo Contras tOrdered By: Ari Sotomayor on 09-13-2019 Patient Name: ORTIZ JACOBS ---CT--- Exam Date/Time 09/13/2019 13:43:[address] Abdomen/Pelvis (No PO, No IV) Ordering Physician DO SOTOMAYOR PAUL E. Accession Number [id number] CPT4 Codes 99877 (CT Abdomen/Pelvis (No PO, No IV)) Reason For Exam Painful urination [R30.9 (ICD-10-CM)]; Flank pain [R10.9 (ICD-10-CM)] Report CT ABDOMEN AND PELVIS WITHOUT CONTRAST CLINICAL INDICATION: Painful urination [R30.9 (ICD-10-CM)]; Flank pain [R10.9 (ICD-10-CM)] TECHNIQUE: CT scan of the abdomen and pelvis, without IV contrast. Multiplanar reformations. COMPARISON: November,. FINDINGS: Abdomen: Solid organ evaluation limited due to lack of IV contrast. Visualized lung bases grossly unremarkable. Gallbladder surgically absent. Biomedical device projects over left mid- lower abdomen, with lead(s) extending to the stomach. Punctate, possible papillary calcification in the left kidney. Right kidney grossly unremarkable. No significant hydronephrosis or abnormal perinephric fluid collection. Liver shows heterogeneously decreased attenuation without focal abnormality. Remainder of abdominal parenchyma grossly unremarkable. Pelvis: No apparent calcifications or significant dilatation in the distal ureters. Diverticular change in the sigmoid colon. Remainder of bowel grossly unremarkable. Appendix not confidently identified. No significant, free peritoneal fluid or loculated fluid collection. Abdominal aorta is nonaneurysmal. Postsurgical change and fixation hardware noted in the lumbosacral spine. IMPRESSION: 1. Punctate, nonobstructing, left renal calcification. No significant hydronephrosis. 2. Findings compatible with hepatic steatosis. 3. Sigmoid colon diverticulosis without evidence of diverticulitis. Report Dictated on Workstation: [email or web address] --- Final --- Dictating Physician: MD VALLEJO WENDELL Signed Date and Time: 09/13/2019 1:56 pm Signed by: MD VALLEJO WENDELL Transcribed Date and Time: 09/13/2019 1:57 [facility] Work Phone: [facility], [facility] Incoming Radiology Results From [facility] - 09/13/2019 1:57 PM EST Patient Name: ORTIZ JACOBS ---CT--- Exam Date/Time 09/13/2019 13:43:[address] Abdomen/Pelvis (No PO, No IV) Ordering Physician DO SOTOMAYOR PAUL E. Accession Number [id number] CPT4 Codes 26510 (CT Abdomen/Pelvis (No PO, No IV)) Reason For Exam Painful urination [R30.9 (ICD-10-CM)]; Flank pain [R10.9 (ICD-10-CM)] Report CT ABDOMEN AND PELVIS WITHOUT CONTRAST CLINICAL INDICATION: Painful urination [R30.9 (ICD-10-CM)]; Flank pain [R10.9 (ICD-10-CM)] TECHNIQUE: CT scan of the abdomen and pelvis, without IV contrast. Multiplanar reformations. COMPARISON: November,. FINDINGS: Abdomen: Solid organ evaluation limited due to lack of IV contrast. Visualized lung bases grossly unremarkable. Gallbladder surgically absent. Biomedical device projects over left mid- lower abdomen, with lead(s) extending to the stomach. Punctate, possible papillary calcification in the left kidney. Right kidney grossly unremarkable. No significant hydronephrosis or abnormal perinephric fluid collection. Liver shows heterogeneously decreased attenuation without focal abnormality. Remainder of abdominal parenchyma grossly unremarkable. Pelvis: No apparent calcifications or significant dilatation in the distal ureters. Diverticular change in the sigmoid colon. Remainder of bowel grossly unremarkable. Appendix not confidently identified. No significant, free peritoneal fluid or loculated fluid collection. Abdominal aorta is nonaneurysmal. Postsurgical change and fixation hardware noted in the lumbosacral spine. IMPRESSION: 1. Punctate, nonobstructing, left renal calcification. No significant hydronephrosis. 2. Findings compatible with hepatic steatosis. 3. Sigmoid colon diverticulosis without evidence of diverticulitis. Report Dictated on Workstation: ELODIA --- Final --- Dictating Physician: MD VALLEJO WENDELL Signed Date and Time: 09/13/2019 1:56 pm Signed by: MD VALLEJO WENDELL Transcribed Date and Time: 09/13/2019 1:57 [facility] Work Phone: CT Abdomen/Pelvis w/o Jovitaa eve 09-13-2019 CT Abdomen/Pelvis w/o Contrast Patient Name: ORTIZ JACOBS CT Exam Date/Time 09/13/2019 13:43:[address] Abdomen/Pelvis (No PO, No IV) Ordering Physician ELSASHANONDO Hawk PAUL E. Accession Number [id number] CPT4 Codes 98526 (CT Abdomen/Pelvis (No PO, No IV)) Reason For Exam Painful urination [R30.9 (ICD-10-CM)]; Flank pain [R10.9 (ICD-10-CM)] Report CT ABDOMEN AND PELVIS WITHOUT CONTRAST CLINICAL INDICATION: Painful urination [R30.9 (ICD-10-CM)]; Flank pain [R10.9 (ICD-10-CM)] TECHNIQUE: CT scan of the abdomen and pelvis, without IV contrast. Multiplanar reformations. COMPARISON: November,. FINDINGS: Abdomen: Solid organ evaluation limited due to lack of IV contrast. Visualized lung bases grossly unremarkable. Gallbladder surgically absent. Biomedical device projects over left mid- lower abdomen, with lead(s) extending to the stomach. Punctate, possible papillary calcification in the left kidney. Right kidney grossly unremarkable. No significant hydronephrosis or abnormal perinephric fluid collection. Liver shows heterogeneously decreased attenuation without focal abnormality. Remainder of abdominal parenchyma grossly unremarkable. Pelvis: No apparent calcifications or significant dilatation in the distal ureters. Diverticular change in the sigmoid colon. Remainder of bowel grossly unremarkable. Appendix not confidently identified. No significant, free peritoneal fluid or loculated fluid collection. Abdominal aorta is nonaneurysmal. Postsurgical change and fixation hardware noted in the lumbosacral spine. IMPRESSION: 1. Punctate, nonobstructing, left renal calcification. No significant hydronephrosis. 2. Findings compatible with hepatic steatosis. 3. Sigmoid colon diverticulosis without evidence of diverticulitis. Report Dictated on Workstation: [email or web address] Final Dictating Physician: MD VALLEJO WENDELL Signed Date and Time: 09/13/2019 1:56 pm Signed by: MD VALLEJO WENDELL Transcribed Date and Time: 09/13/2019 1:57 Normal [facility] Autodiffon 09-13 Abs Baso Cnt 0.1 10*3/uL Normal 0.0-0.2 [facility] Comment on above: Performed By: #### H [facility], BMP3 #### [facility] [employer] [facility] [address] [place] [address] Abs Neutrophile Cnt 4.2 10*3/uL Normal 1.8-7.0 [facility] Comment on above: Performed By: #### H RUPESH BMP3 #### [facility] [address] [place] [address] Basophils/100 WBC (Bld) 0.8 % Normal 0.0-2.0 S [facility] Comment on above: Performed By: #### H RUPESH BMP3 #### [facility] [address] [place] [address] Eosinophils (Bld) [#/Vol] 0.1 10*3/uL Normal 0.0-0.5 [facility] Comment on above: Performed By: #### H RUPESH BMP3 #### [facility] [address] [place] [address] Eosinophils/100 WBC (Bld) 0.9 % Low 1.0-6.0 [facility] Comment on above: Performed By: #### H RUPESH BMP3 #### [facility] [address] [place] [address] Erythrocyte distribution width (RBC) [Ratio] 13.7 % Normal 11.5-14.5 [facility] Comment on above: Performed By: #### H RUPESH BMP3 #### [facility] [address] [place] [address] Granulocytes/100 WBC (Bld) 58.8 % Normal 40.0-80.0 [facility] Comment on above: Performed By: #### H RUPESH BMP3 #### [facility] [address] [place] [address] Hematocrit (Bld) [Volume fraction] 49.8 % High 35.0-47.0 [facility] Comment on above: Performed By: #### H RUPESH BMP3 #### [facility] [address] [place] [address] Hemoglobin (Bld) [Mass/Vol] 16.6 g/dL High 11.7-16.0 [facility] Comment on above: Performed By: #### H RUPESH BMP3 #### [facility] [address] [place] [address] Lymphocytes (Bld) [#/Vol] 2.2 10*3/uL Normal 1.0-4.3 [facility] Comment on above: Performed By: #### H EMDF, BMP3 #### [facility] [address] [place] [address] Lymphocytes/100 WBC (Bld) 31.2 % Normal 20.0-40.0 [facility] Comment on above: Performed By: #### H EMDF, BMP3 #### [facility] [address] [place] [address] MCH (RBC) [Entitic mass] 32.4 pg Normal 26.0-34.0 [facility] Comment on above: Performed By: #### H EMDF, BMP3 #### [facility] [address] [place] [address] MCHC (RBC) [Mass/Vol] 33.4 % Normal 32.0-36.0 [facility] Comment on above: Performed By: #### H EMDF, BMP3 #### [facility] [address] [place] [address] MCV (RBC) [Entitic vol] 97.0 fL Normal 79.0-98.0 [facility] Comment on above: Performed By: #### H EMDF, BMP3 #### [facility] [address] [place] [address] Monocytes (Bld) [#/Vol] 0.6 10*3/uL Normal 0.0-0.8 [facility] Comment on above: Performed By: #### H EMDF, BMP3 #### [facility] [address] [place] [address] Monocytes/100 WBC (Bld) 8.3 % Normal 2.0-10.0 S [facility] Comment on above: Performed By: #### H EMDF, BMP3 #### [facility] [address] [place] [address] Platelet mean volume (Bld) [Entitic vol] 7.9 fL Normal 7.4-10.4 [facility] Comment on above: Performed By: #### H RUPESH BMP3 #### [facility] [address] [place] [address] Platelets (Bld) [#/Vol] 337 10*3/uL Normal 140-440 [facility] Comment on above: Performed By: #### H RUPESH BMP3 #### [facility] [address] [place] [address] RBC (Bld) [#/Vol] 5.14 10*6/uL Normal 3.80-5.20 [facility] Comment on above: Performed By: #### H RUPESH BMP3 #### [facility] [address] [place] [address] WBC (Bld) [#/Vol] 7.1 10*3/uL Normal 3.6-10.7 [facility] Comment on above: Performed By: #### H RUPESH BMP3 #### [facility] [address] [place] [address] Gastrointestinal Panel by FERNANDO Le 05-13-2019 Gastrointestinal PCR Panel NEGATIVE: No targets were detected by the [employer] Gastrointestinal PCR Panel. The [employer] Gastrointestinal PCR Panel detects the following targets: Campylobacter Plesiomonas shigelloides Salmonella Vibrio species Vibrio cholerae Yersinia enterocolitica Shiga-like toxin producing E. coli (STEC), including E. coli O157 Enterotoxigenic E. coli (ETEC) lt/st Shigella/Enteroinvasive E. coli (EIEC) Cryptosporidium Cyclospora cayetanensis Entamoeba histolytica Giardia lamblia Adenovirus F 40/41 Astrovirus Norovirus GI/GII Rotavirus A Sapovirus Clostridioides (Clostridium) difficile toxin is no longer being reported on the GI panel. If patient symptoms are consistent with C. difficile infection, the assay can be ordered separately with [facility] ([id number]). [place] Test Performed by [facility], [address] [place] [id number] Specimen Source Comment:Stool [place], [place] Basic Metabolic Panelon 04-24 Anion gap [Moles/Vol] 9 mmol/L [place] Calcium [Mass/Vol] 9.5 mg/dL 8.4 - 10. 4 mg/dL [place] Chloride [Moles/Vol] 108 mmol/L High 98 - 10 7 mmol/L [place] CO2 [Moles/Vol] 25 mmol/L 22 - 30 mmol/L [place] Creatinine [Mass/Vol] 0.61 mg/dL 0.52 - 1.25 mg/dL [place] EGFR IF NonAfrican Tajik >60.0 >60 mL/min [place] Comment on above: Source- MDRD equatio n with creatinine calibration to IDMS(NKDEP) eGFR not recommended for drug dose adjustment GFR/1.73 sq M predicted among blacks MDRD (S/P/Bld) [Vol rate/Area] mL/min/{1.73_m2} >60 mL/min [place] Glucose [Mass/Vol] 95 mg/dL 70 - 100 mg/dL [place] Interpretation and review of laboratory results Abnormal [place] Potassium [Moles/Vol] 4.2 mmol/L 3.5 - 5.1 mmol/L [place] Sodium [Moles/Vol] 142 mmol/L 135 - 145 mmol/L [place] Urea nitrogen [Mass/Vol] 10 mg/dL 7 - 20 mg/dL [place] C-Reactive Proteinon 019 CRP [Mass/Vol] 6 mg/L 0 - 6 mg/L [place] Comment on above: . Hemogram (CBC) w/Auto Diffon 05-12-2019 Absolute Baso # 0.1 10*3/uL 0 - 0.2 10*3/uL [place] Absolute Neut # 4.0 10*3/uL 1.8 - 7 10*3/uL [place] Basophils/100 WBC (Bld) 1.3 % 0 - 2 % M [place] Eosinophils (Bld) [#/Vol] 0.1 10*3/uL 0 - 0.5 10*3/uL [place] Eosinophils/100 WBC (Bld) 1.3 % 1 - 6 % [place] Erythrocyte distribution width (RBC) [Ratio] 13.6 % 11.5 - 14.5 % [place] Granulocytes/100 WBC (Bld) 51.3 % 40 - 80 % [place] Hematocrit (Bld) [Volume fraction] 43.6 % 35 - 47 % [place] Hemoglobin (Bld) [Mass/Vol] 15.1 g/dL 11.7 - 16 g/dL [place] Lymphocytes (Bld) [#/Vol] 3.0 10*3/uL 1 - 4.3 10*3/uL [place] Lymphocytes/100 WBC (Bld) 38.2 % 20 - 40 % [place] MCH (RBC) [Entitic mass] 31.8 pg 26 - 34 pg [place] MCHC (RBC) [Mass/Vol] 34.5 % 32 - 36 % [place] MCV (RBC) [Entitic vol] 92.1 fL 79 - 98 fL [place] Monocytes (Bld) [#/Vol] 0.6 10*3/uL 0 - 0.8 10*3/uL [place] Monocytes/100 WBC (Bld) 7.9 % 2 - 10 % [place] Platelet mean volume (Bld) [Entitic vol] 8.5 fL 7.4 - 10.4 fL [place] Platelets (Bld) [#/Vol] 281 10*3/uL 140 - 440 10*3/uL [place] RBC (Bld) [#/Vol] 4.74 10*6/uL 3.8 - 5.2 10*6/uL [place] WBC (Bld) [#/Vol] 7.9 10*3/uL 3.6 - 10.7 10*3/uL [place] Test Performed by [facility] [address] [place] [address] [place] Otheron 05-12-2019 Test Performed by [facility] [address] [place] [address] [place] Protime-INRon 05-12-2019 INR Coag (PPP) [Relative time] 1.0 {INR} [place] Comment on above: Recommended Anticoag ulant Therapy: SEE BELOW ----- INR of 2.0 - 3.0 : - Prophylaxis of Venous Thrombosis (high-risk surgery) - Treatment of Venous Thrombosis - Treatment of Pulmonary Embolism (Includes tissue heart valves, Acute Myocardial Infarction to prevent systemic embolism, Valvular Heart Disease, and Atrial Fibrillation) ----- INR of 2.5 - 3.5 : - Mechanical Prosthetic Valves (high risk) - If oral anticoagulant therapy is used to prevent Myocardial Infarction PT Coag (PPP) [Time] 10.2 s 9 - 12 s [place] Comment on above: . Test Performed by [facility], [address] [place] [id number] [place] [address] Sedimentation Rateon 019 Sed Rate 2 mm/h 0 - 20 mm/h [place] Test Performed by [facility], [address] [place] [address] [place] XR HIP LEFT (2-3 VIEWS)on [facility] Incoming Radiology Results From [facility] - 05/12/2019 11:11 PM EDT Patient Name: ORTIZ JACOBS ---Diagnostic Radiology--- Exam Date/Time 05/12/2019 23:05:44 EDT Exam CR Hip w/ Pelvis 2 or 3 Views Left n Ordering Physician [id number] -BEVERLY PHILLIPS Accession Number [id number] CPT4 Codes 46151 () Reason For Exam pain Report PELVIS SINGLE VIEW AND LEFT HIP 2 VIEWS CLINICAL INDICATION: pain TECHNIQUE: Single, AP view of the pelvis and 2 views of the left hip. COMPARISON: April,. FINDINGS: Postsurgical change, including posterior fixation rods and pedicle screws in the lower lumbosacral spine. Biomedical device partially visualized projecting over the left iliac/gluteal region. No apparent fracture or dislocation. Hip joint spaces maintained. Soft tissues grossly unremarkable. IMPRESSION: 1. No acute osseous abnormality. 2. Postsurgical change. Report Dictated on Workstation: [facility] --- Final --- Dictated: 05/12/2019 11:07 pm Dictating Physician: MD VALLEJO WENDELL Signed Date and Time: 05/12/2019 11:10 pm Signed by: MD VALLEJO WENDELL Transcribed Date and Time: 05/12/2019 11:07 [place] Patient Name: ORTIZ JACOBS ---Diagnostic Radiology--- Exam Date/Time 05/12/2019 23:05:44 EDT Exam CR Hip w/ Pelvis 2 or 3 Views Left n Ordering Physician [id number] MORELOS Accession Number [id number] CPT4 Codes 12105 () Reason For Exam pain Report PELVIS SINGLE VIEW AND LEFT HIP 2 VIEWS CLINICAL INDICATION: pain TECHNIQUE: Single, AP view of the pelvis and 2 views of the left hip. COMPARISON: April,. FINDINGS: Postsurgical change, including posterior fixation rods and pedicle screws in the lower lumbosacral spine. Biomedical device partially visualized projecting over the left iliac/gluteal region. No apparent fracture or dislocation. Hip joint spaces maintained. Soft tissues grossly unremarkable. IMPRESSION: 1. No acute osseous abnormality. 2. Postsurgical change. Report Dictated on Workstation: [facility] --- Final --- Dictated: 05/12/2019 11:07 pm Dictating Physician: MD VALLEJO WENDELL Signed Date and Time: 05/12/2019 11:10 pm Signed by: MD VALLEJO WENDELL Transcribed Date and Time: 05/12/2019 11:07 [place] XR LUMBAR SPINE (2-3 VIEWS)o n 05-12-2019 [facility] Incoming [facility] Results From [facility] - 05/12/2019 11:17 PM EDT Patient Name: ORTIZ JACOBS ---Diagnostic Radiology--- Exam Date/Time 05/12/2019 23:06:10 EDT Exam CR Spine Lumbosacral 2 or 3 Views Ordering Physician [id number] MORELOS Accession Number [id number] CPT4 Codes 85826 () Reason For Exam pain flexion and extension Report LUMBAR SPINE 2 VIEWS CLINICAL INDICATION: pain, flexion and extension TECHNIQUE: 2 views of the lumbar spine, including flexion and extension views. COMPARISON: Earlier on same date at 2106 hours. FINDINGS: Postsurgical change and fixation hardware again noted in the L4-S1 levels. No loss of height, abnormal translation or gross malalignment of vertebral bodies. No osseous destruction. Mild disc space narrowing in L2-3 and more pronounced disc space narrowing in the L3-4 level. Biomedical device and leads again partially visualized. IMPRESSION: 1. No acute osseous abnormality. 2. Postsurgical and degenerative change. Report Dictated on Workstation: [employer] --- Final --- Dictated: 05/12/2019 11:12 pm Dictating Physician: MD VALLEJO WENDELL Signed Date and Time: 05/12/2019 11:16 pm Signed by: MD VALLEJO WENDELL Transcribed Date and Time: 05/12/2019 11:12 [place] Patient Name: ORTIZ JACOBS ---Diagnostic Radiology--- Exam Date/Time 05/12/2019 23:06:10 EDT Exam CR Spine Lumbosacral 2 or 3 Views Ordering Physician [id number] -BEVERLY PHILLIPS Accession Number [id number] CPT4 Codes 24039 () Reason For Exam pain flexion and extension Report LUMBAR SPINE 2 VIEWS CLINICAL INDICATION: pain, flexion and extension TECHNIQUE: 2 views of the lumbar spine, including flexion and extension views. COMPARISON: Earlier on same date at 2106 hours. FINDINGS: Postsurgical change and fixation hardware again noted in the L4-S1 levels. No loss of height, abnormal translation or gross malalignment of vertebral bodies. No osseous destruction. Mild disc space narrowing in L2-3 and more pronounced disc space narrowing in the L3-4 level. Biomedical device and leads again partially visualized. IMPRESSION: 1. No acute osseous abnormality. 2. Postsurgical and degenerative change. Report Dictated on Workstation: [employer] --- Final --- Dictated: 05/12/2019 11:12 pm Dictating Physician: MD VALLEJO WENDELL Signed Date and Time: 05/12/2019 11:16 pm Signed by: MD VALLEJO WENDELL Transcribed Date and Time: 05/12/2019 11:12 [place] [facility] Incoming Radiology Results From [facility] - 05/12/2019 9:21 PM EDT Patient Name: ORTIZ JACOBS ---Diagnostic Radiology--- Exam Date/Time 05/12/2019 21:15:55 EDT Exam CR Spine Lumbosacral 2 or 3 Views Ordering Physician LUIS ANGEL MURO Accession Number [id number] CPT4 Codes 01054 () Reason For Exam lumbar pain, hx of hardware, pt concerend for hardware failure Report LUMBAR SPINE: CLINICAL INDICATION: Pain. TECHNIQUE: AP, lateral and coned-down L5-S1. COMPARISON: 10/20/2013 FINDINGS: Five lumbar vertebrae are present. The lumbar vertebrae demonstrate no wedge fracture or compression deformity. Postsurgical changes are seen of prior posterior fusion from L4 to S1. Mild lucency surrounding one of the L4 pedicle screws. No evidence of hardware lucency at L5 or S1. Mild degenerative changes with disc space narrowing at L4-5 and L5-S1 There is no spondylolisthesis. The pedicles and sacroiliac joints are unremarkable. No abnormal soft tissue calcifications are noted. Surgical clips overlie the right upper quadrant. Electronic device overlies the left hemiabdomen with leads overlying the spine likely representing a spinal cord stimulator device. IMPRESSION: Postsurgical changes from L4 to S1. Lucency around one of the L4 pedicle screws; correlate for loosening or infection and compare with prior imaging, if available. Mild lumbar spondylosis. Report Dictated on --- Final --- Dictated: 05/12/2019 9:16 pm Dictating Physician: MD PELAYO NICHOLAS Signed Date and Time: 05/12/2019 9:20 pm Signed by: MD PELAYO NICHOLAS Transcribed Date and Time: 05/12/2019 9:16 [place] Patient Name: ORTIZ JACOBS ---Diagnostic Radiology--- Exam Date/Time 05/12/2019 21:15:55 EDT Exam CR Spine Lumbosacral 2 or 3 Views Ordering Physician LUIS ANGEL MURO Accession Number [id number] CPT4 Codes 71269 () Reason For Exam lumbar pain, hx of hardware, pt concerend for hardware failure Report LUMBAR SPINE: CLINICAL INDICATION: Pain. TECHNIQUE: AP, lateral and coned-down L5-S1. COMPARISON: 10/20/2013 FINDINGS: Five lumbar vertebrae are present. The lumbar vertebrae demonstrate no wedge fracture or compression deformity. Postsurgical changes are seen of prior posterior fusion from L4 to S1. Mild lucency surrounding one of the L4 pedicle screws. No evidence of hardware lucency at L5 or S1. Mild degenerative changes with disc space narrowing at L4-5 and L5-S1 There is no spondylolisthesis. The pedicles and sacroiliac joints are unremarkable. No abnormal soft tissue calcifications are noted. Surgical clips overlie the right upper quadrant. Electronic device overlies the left hemiabdomen with leads overlying the spine likely representing a spinal cord stimulator device. IMPRESSION: Postsurgical changes from L4 to S1. Lucency around one of the L4 pedicle screws; correlate for loosening or infection and compare with prior imaging, if available. Mild lumbar spondylosis. Report Dictated on --- Final --- Dictated: 05/12/2019 9:16 pm Dictating Physician: MD PELAYO NICHOLAS Signed Date and Time: 05/12/2019 9:20 pm Signed by: MD PELAYO NICHOLAS Transcribed Date and Time: 05/12/2019 9:16 [place] COVID-19 virus antigen assay SARS-CoV-2 (COVID-19) Ag IA.rapid Ql (Resp) [facility] Work Phone: No Panel Information Influenza Types A,B Direct FA (CRAIG) [facility] Work Phone: Vital Signs Date Time Vital Sign Value Performing Clinician Facility 04-14-2025 09:15-0400 Body temperature 98.4 [degF] Dr. Amandeep Loredo DO Work Phone: [facility] 04-14-2025 09:15-0400 Diastolic blood pressure 82 mm[Hg] Dr. Amandeep Loredo DO Work Phone: [facility] 04-14-2025 09:15-0400 Heart rate 66 /min Dr. Amandeep Loredo DO Work Phone: [facility] 04-14-2025 09:15-0400 Respiratory rate 16 /min Dr. Amandeep Loredo DO Work Phone: [facility] 04-14-2025 09:15-0400 SaO2% (BldA) [Mass fraction] 95 % Dr. Amandeep Loredo DO Work Phone: [facility] 04-14-2025 09:15-0400 Systolic blood pressure 138 mm[Hg] Dr. Amandeep Loredo DO Work Phone: [facility] 04-14-2025 07:39-0400 Body mass index (BMI) [Ratio] 28 kg/m2 Dr. Amandeep Loredo DO Work Phone: [facility] 04-14-2025 07:39-0400 Body weight [address] Amandeep Loredo DO Work Phone: [facility] 04-14-2025 07:36-0400 Body height 175.[address] Amandeep Loredo DO Work Phone: [facility] 03-14-2025 15:50-0400 Body temperature 97.5 [degF] Dr. Amandeep Loredo DO Work Phone: [facility] 03-14-2025 15:50-0400 Diastolic blood pressure 83 mm[Hg] Dr. Amandeep Loredo DO Work Phone: [facility] 03-14-2025 15:50-0400 Heart rate 70 /min Dr. Amandeep Loredo DO Work Phone: [facility] 03-14-2025 15:50-0400 Respiratory rate 16 /min Dr. Amandeep Loredo DO Work Phone: [facility] 03-14-2025 15:50-0400 SaO2% (BldA) [Mass fraction] 99 % Dr. Amandeep Loredo DO Work Phone: [facility] 03-14-2025 15:50-0400 Systolic blood pressure 117 mm[Hg] Dr. Amandeep Loredo DO Work Phone: [facility] 03-14-2025 13:58-0400 Body height 175.[address] Amandeep Loredo DO Work Phone: [facility] 03-14-2025 13:58-0400 Body mass index (BMI) [Ratio] 26.9 kg/m2 Dr. Amandeep Loredo DO Work Phone: [facility] 03-14-2025 13:58-0400 Body weight 82.[address] Amandeep Loredo DO Work Phone: [facility] 01-05-2025 19:49-0400 Heart rate 88 /min Dr. Amandeep Loredo DO Work Phone: [facility] 01-05-2025 19:49-0400 Respiratory rate 18 /min Dr. Amandeep Loredo DO Work Phone: [facility] 01-05-2025 19:49-0400 SaO2% (BldA) [Mass fraction] 100 % Dr. Amandeep Loredo DO Work Phone: [facility] 01-05-2025 19:48-0400 Body mass index (BMI) [Ratio] 28.9 kg/m2 Dr. Amandeep Loredo DO Work Phone: [facility] 01-05-2025 19:48-0400 Body weight 88.[address] Amandeep Loredo DO Work Phone: [facility] 01-05-2025 18:20-0400 Diastolic blood pressure 73 mm[Hg] Dr. Amandeep Loredo DO Work Phone: [facility] 01-05-2025 18:20-0400 Systolic blood pressure 110 mm[Hg] Dr. Amandeep Loredo DO Work Phone: [facility] 01-05-2025 16:57-0400 Body height 175.[address] Amandeep Loredo DO Work Phone: [facility] 01-05-2025 16:57-0400 Body temperature 96.9 [degF] Dr. Amandeep Loredo DO Work Phone: [facility] 10-21-2024 00:35-0500 Body temperature 98.1 [degF] Dr. Amandeep Loredo DO Work Phone: [facility] 10-21-2024 00:35-0500 Diastolic blood pressure 79 mm[Hg] Dr. Amandeep Loredo DO Work Phone: [facility] 10-21-2024 00:35-0500 Heart rate 69 /min Dr. Amandeep Loredo DO Work Phone: [facility] 10-21-2024 00:35-0500 Respiratory rate 18 /min Dr. Amandeep Loredo DO Work Phone: [facility] 10-21-2024 00:35-0500 SaO2% (BldA) [Mass fraction] 99 % Dr. Amandeep Loredo DO Work Phone: [facility] 10-21-2024 00:35-0500 Systolic blood pressure 155 mm[Hg] Dr. Amandeep Loredo DO Work Phone: [facility] 10-20-2024 20:13-0500 Body mass index (BMI) [Ratio] 28 kg/m2 Dr. Amandeep Loredo DO Work Phone: [facility] 10-20-2024 20:13-0500 Body weight 86.[address] Amandeep Loredo DO Work Phone: [facility] 12-01-2023 04:06-0400 Body temperature 99.4 [degF] [facility] 12-01-2023 04:06-0400 Diastolic blood pressure 81 mm[Hg] [facility] 12-01-2023 04:06-0400 Heart rate 98 /min [facility] 12-01-2023 04:06-0400 Respiratory rate 16 /min [facility] 12-01-2023 04:06-0400 SaO2% (BldA) [Mass fraction] 97 % [facility] 12-01-2023 04:06-0400 Systolic blood pressure 165 mm[Hg] [facility] 12-01-2023 02:07-0400 Body height 172.72 cm [facility] 12-01-2023 02:07-0400 Body mass index (BMI) [Ratio] 26.7 kg/m2 [facility] 12-01-2023 02:07-0400 Body weight 79.9 kg [facility] 11-18-2023 19:22-0400 Body temperature 98.6 [degF] [facility] 11-18-2023 19:22-0400 Diastolic blood pressure 80 mm[Hg] [facility] 11-18-2023 19:22-0400 Heart rate 92 /min [facility] 11-18-2023 19:22-0400 Respiratory rate 22 /min [facility] 11-18-2023 19:22-0400 SaO2% (BldA) [Mass fraction] 99 % [facility] 11-18-2023 19:22-0400 Systolic blood pressure 145 mm[Hg] [facility] 11-18-2023 18:49-0400 Body mass index (BMI) [Ratio] 27.5 kg/m2 [facility] 11-18-2023 18:49-0400 Body weight 82.1 kg [facility] 11-18-2023 18:42-0400 Body height 172.72 cm [facility] 10-07-2023 22:09-0500 Body temperature 96.5 [degF] [facility] 10-07-2023 22:09-0500 Diastolic blood pressure 84 mm[Hg] [facility] 10-07-2023 22:09-0500 Heart rate 78 /min [facility] 10-07-2023 22:09-0500 Respiratory rate 18 /min [facility] 10-07-2023 22:09-0500 SaO2% (BldA) [Mass fraction] 99 % [facility] 10-07-2023 22:09-0500 Systolic blood pressure 140 mm[Hg] [facility] 10-07-2023 19:11-0500 Body height 172.72 cm [facility] 10-07-2023 19:11-0500 Body mass index (BMI) [Ratio] 26.8 kg/m2 [facility] 10-07-2023 19:11-0500 Body weight 80 kg [facility] 07-27-2023 16:31-0500 Body height 172.7 cm Amandeep Loredo DO Work Phone: [facility] 07-27-2023 16:31-0500 Body mass index (BMI) [Ratio] 27.22 kg/m2 Amandeep Loredo DO Work Phone: [facility] [employer] 07-27-2023 16:31-0500 Body temperature 97.81 [degF] Amandeep Loredo DO Work Phone: [facility] [employer] 07-27-2023 16:31-0500 Body weight 81.19 kg Amandeep Loredo DO Work Phone: [facility] [employer] 07-27-2023 16:31-0500 Diastolic blood pressure 78 mm[Hg] Amandeep Loredo DO Work Phone: [facility] [employer] 07-27-2023 16:31-0500 Heart rate 98 /min Amandeep Loredo DO Work Phone: [facility] [employer] 07-27-2023 16:31-0500 SaO2% (BldA) [Mass fraction] 95 % Amandeep Loredo DO Work Phone: [facility] [employer] 07-27-2023 16:31-0500 Systolic blood pressure 130 mm[Hg] Amandeep Loredo DO Work Phone: [facility] 03-06-2023 01:20-0400 Diastolic Blood Pressure Non-Invasive 78 1 BELINDA COVARRUBIAS MD [facility] 03-06-2023 01:20-0400 Heart rate 85 /min BELINDA COVARRUBIAS MD [facility] 03-06-2023 01:20-0400 Respiratory rate 16 /min BELINDA COVARRUBIAS MD [facility] 03-06-2023 01:20-0400 Systolic Blood Pressure Non-Invasive 118 1 BELINDA COVARRUBIAS MD [facility] 03-05-2023 22:56-0400 Body height 172.7 cm BELINDA COVARRUBIAS MD [facility] 03-05-2023 22:56-0400 Body temperature 98.24 [degF] BELINDA COVARRUBIAS MD [facility] 03-05-2023 22:56-0400 Body weight 72.7 kg BELINDA COVARRUBIAS MD [facility] 03-05-2023 22:56-0400 Diastolic Blood Pressure Non-Invasive 79 1 BELINDA COVARRUBIAS MD [facility] 03-05-2023 22:56-0400 Heart rate 95 /min BELINDA COVARRUBIAS MD [facility] 03-05-2023 22:56-0400 Respiratory rate 16 /min BELINDA COVARRUBIAS MD [facility] 03-05-2023 22:56-0400 Systolic Blood Pressure Non-Invasive 112 1 BELINDA COVARRUBIAS MD [facility] 02-15-2023 17:09-0400 Body height 172.72 cm [facility] 02-15-2023 17:09-0400 Body mass index (BMI) [Ratio] 27.1 kg/m2 [facility] 02-15-2023 17:09-0400 Body temperature 96.4 [degF] [facility] 02-15-2023 17:09-0400 Body weight 80.83 kg [facility] 02-15-2023 17:09-0400 Diastolic blood pressure 78 mm[Hg] [facility] 02-15-2023 17:09-0400 Heart rate 82 /min [facility] 02-15-2023 17:09-0400 Respiratory rate 16 /min [facility] 02-15-2023 17:09-0400 SaO2% (BldA) [Mass fraction] 98 % [facility] 02-15-2023 17:09-0400 Systolic blood pressure 118 mm[Hg] [facility] 11-27-2022 07:37-0400 Diastolic blood pressure 76 mm[Hg] Earl Vickers MD Work Phone: [facility] 11-27-2022 07:37-0400 Heart rate 67 /min Earl Vickers MD Work Phone: [facility] 11-27-2022 07:37-0400 Systolic blood pressure 117 mm[Hg] Earl Vickers MD Work Phone: [facility] 11-27-2022 07:34-0400 Body temperature 96.21 [degF] Earl Vickers MD Work Phone: [facility] [employer] 11-27-2022 07:34-0400 Respiratory rate 16 /min Earl Vickers MD Work Phone: [facility] [employer] 11-27-2022 07:34-0400 SaO2% (BldA) [Mass fraction] 97 % Earl Vickers MD Work Phone: [facility] [employer] 11-26-2022 14:59-0400 Body height 172.7 cm Earl Vickers MD Work Phone: [facility] [employer] 11-26-2022 14:59-0400 Body mass index (BMI) [Ratio] 25.85 kg/m2 Earl Vickers MD Work Phone: [facility] [employer] 11-26-2022 14:59-0400 Body weight 77.11 kg Earl Vickers MD Work Phone: [facility] [employer] 11-25-2022 09:00-0400 Diastolic blood pressure 80 mm[Hg] Ha Carcamo PA-C Work Phone: [facility] [employer] 11-25-2022 09:00-0400 Systolic blood pressure 147 mm[Hg] Ha Carcamo PA-C Work Phone: [facility] [employer] 11-25-2022 08:48-0400 Body height 172.7 cm Ha Comparisim PA-C Work Phone: [facility] [employer] 11-25-2022 08:48-0400 Body mass index (BMI) [Ratio] 27.22 kg/m2 Ha Comparisim PA-C Work Phone: [facility] [employer] 11-25-2022 08:48-0400 Body weight 81.19 kg Ha Comparisim PA-C Work Phone: [facility] [employer] 11-25-2022 08:48-0400 Heart rate 103 /min Ha Comparisim PA-C Work Phone: [facility] 11-16-2022 22:39-0400 Body mass index (BMI) [Ratio] 28.3 kg/m2 [facility] 11-16-2022 22:39-0400 Body weight 84.4 kg [facility] 11-16-2022 21:10-0400 Body height 172.72 cm [facility] 11-16-2022 21:10-0400 Body temperature 98 [degF] [facility] 11-16-2022 21:10-0400 Diastolic blood pressure 79 mm[Hg] [facility] 11-16-2022 21:10-0400 Heart rate 101 /min [facility] 11-16-2022 21:10-0400 Respiratory rate 15 /min [facility] 11-16-2022 21:10-0400 SaO2% (BldA) [Mass fraction] 95 % [facility] 11-16-2022 21:10-0400 Systolic blood pressure 133 mm[Hg] [facility] 11-10-2022 09:46-0400 Body temperature 98.8 [degF] Kenny Serna MD Work Phone: [facility] 11-10-2022 09:46-0400 Diastolic blood pressure 67 mm[Hg] Kenny Serna MD Work Phone: [facility] 11-10-2022 09:46-0400 Heart rate 104 /min Kenny Serna MD Work Phone: [facility] [employer] 11-10-2022 09:46-0400 SaO2% (BldA) [Mass fraction] 93 % Kenny Serna MD Work Phone: [facility] [employer] 11-10-2022 09:46-0400 Systolic blood pressure 116 mm[Hg] Kenny Serna MD Work Phone: [facility] [employer] 11-09-2022 20:22-0400 Respiratory rate 18 /min Kenny Serna MD Work Phone: [facility] [employer] 11-06-2022 10:43-0400 Body height 172.7 cm Kenny Serna MD Work Phone: [facility] [employer] 11-06-2022 10:43-0400 Body mass index (BMI) [Ratio] 27.22 kg/m2 Kenny Serna MD Work Phone: [facility] [employer] 11-06-2022 10:43-0400 Body weight 81.19 kg Kenny Serna MD Work Phone: [facility] [employer] 10-30-2022 08:45-0500 Diastolic blood pressure 84 mm[Hg] Amandeep Loredo DO Work Phone: [facility] [employer] 10-30-2022 08:45-0500 Heart rate 76 /min Amandeep Loredo DO Work Phone: [facility] [employer] 10-30-2022 08:45-0500 Systolic blood pressure 126 mm[Hg] Amandeep Loredo DO Work Phone: [facility] [employer] 10-30-2022 07:55-0500 Body height 174 cm Amandeep Loredo DO Work Phone: [facility] [employer] 10-30-2022 07:55-0500 Body mass index (BMI) [Ratio] 26.67 kg/m2 Amandeep Loredo DO Work Phone: [facility] [employer] 10-30-2022 07:55-0500 Body temperature 97.11 [degF] Amandeep Loredo DO Work Phone: [facility] 10-30-2022 07:55-0500 Body weight 80.74 kg Amandeep Loredo DO Work Phone: [facility] 10-30-2022 07:55-0500 SaO2% (BldA) [Mass fraction] 94 % Amandeep Loredo DO Work Phone: [facility] 10-14-2022 20:17-0500 Body mass index (BMI) [Ratio] 27.6 kg/m2 Dr. Ari Sotomayor Work Phone: [facility] 10-14-2022 20:17-0500 Body weight 82.[address] Ari Sotomayor Work Phone: [facility] 10-14-2022 20:13-0500 Body height 172.[address] Ari Sotomayor Work Phone: [facility] 10-14-2022 20:13-0500 Body temperature 98.6 [degF] Dr. Ari Sotomayor Work Phone: [facility] 10-14-2022 20:13-0500 Diastolic blood pressure 100 mm[Hg] Dr. Ari Sotomayor Work Phone: [facility] 10-14-2022 20:13-0500 Heart rate 95 /min Dr. Ari Sotomayor Work Phone: [facility] 10-14-2022 20:13-0500 Respiratory rate 16 /min Dr. Ari Sotomayor Work Phone: [facility] 10-14-2022 20:13-0500 SaO2% (BldA) [Mass fraction] 98 % Dr. Ari Sotomayor Work Phone: [facility] 10-14-2022 20:13-0500 Systolic blood pressure 161 mm[Hg] Dr. Ari Sotomayor Work Phone: [facility] 10-13-2022 08:38-0500 Body height 174 cm Kenny Serna MD Work Phone: [facility] 10-13-2022 08:38-0500 Body mass index (BMI) [Ratio] 25.47 kg/m2 Kenny Serna MD Work Phone: [facility] 10-13-2022 08:38-0500 Body weight 77.11 kg Kenny Serna MD Work Phone: [facility] 10-03-2022 11:00-0500 Diastolic blood pressure 90 mm[Hg] Kenny Serna MD Work Phone: [facility] 10-03-2022 11:00-0500 Heart rate 100 /min Kenny Serna MD Work Phone: [facility] 10-03-2022 11:00-0500 SaO2% (BldA) [Mass fraction] 97 % Kenny Serna MD Work Phone: [facility] 10-03-2022 11:00-0500 Systolic blood pressure 151 mm[Hg] Kenny Serna MD Work Phone: [facility] 10-03-2022 08:43-0500 Respiratory rate 12 /min Kenny Serna MD Work Phone: [facility] 10-03-2022 06:58-0500 Body temperature 97 [degF] Kenny Serna MD Work Phone: [facility] 09-23-2022 17:12-0500 Diastolic blood pressure 89 mm[Hg] Dr. Ari Sotomayor Work Phone: [facility] 09-23-2022 17:12-0500 Heart rate 87 /min Dr. Ari Sotomayor Work Phone: [facility] 09-23-2022 17:12-0500 Respiratory rate 17 /min Dr. Ari Sotomayor Work Phone: [facility] 09-23-2022 17:12-0500 SaO2% (BldA) [Mass fraction] 96 % Dr. Ari Sotomayor Work Phone: [facility] 09-23-2022 17:12-0500 Systolic blood pressure 152 mm[Hg] Dr. Ari Sotomayor Work Phone: [facility] 09-23-2022 13:11-0500 Body height 175.[address] Ari Sotomayor Work Phone: [facility] 09-23-2022 13:11-0500 Body mass index (BMI) [Ratio] 25.8 kg/m2 Dr. Ari Sotomayor Work Phone: [facility] 09-23-2022 13:11-0500 Body temperature 98 [degF] Dr. Ari Sotomayor Work Phone: [facility] 09-23-2022 13:11-0500 Body weight 79.[address] Ari Sotomayor Work Phone: [facility] 08-24-2022 18:00-0500 Diastolic blood pressure 74 mm[Hg] Dr. Ari Sotomayor Work Phone: [facility] 08-24-2022 18:00-0500 Heart rate 82 /min Dr. Ari Sotomayor Work Phone: [facility] 08-24-2022 18:00-0500 Respiratory rate 18 /min Dr. Ari Sotomayor Work Phone: [facility] 08-24-2022 18:00-0500 SaO2% (BldA) [Mass fraction] 99 % Dr. Ari Sotomayor Work Phone: [facility] 08-24-2022 18:00-0500 Systolic blood pressure 132 mm[Hg] Dr. Ari Sotomayor Work Phone: [facility] 08-24-2022 11:37-0500 Body height 175.[address] Ari Sotomayor Work Phone: [facility] Work Phone: 08-24-2022 11:37-0500 Body mass index (BMI) [Ratio] 26.6 kg/m2 Dr. Ari Sotomayor Work Phone: [facility] 08-24-2022 11:37-0500 Body temperature 96.8 [degF] Dr. Ari Sotomayor Work Phone: [facility] 08-24-2022 11:37-0500 Body weight 81.[address] Ari Sotomayor Work Phone: [facility] 08-20-2022 22:55-0500 Heart rate 88 /min Dr. Ari Sotomayor Work Phone: [facility] 08-20-2022 22:55-0500 Respiratory rate 20 /min Dr. Ari Sotomayor Work Phone: [facility] 08-20-2022 22:55-0500 SaO2% (BldA) [Mass fraction] 98 % Dr. Ari Sotomayor Work Phone: [facility] 08-20-2022 20:20-0500 Body height 175.[address] Ari Sotomayor Work Phone: [facility] Work Phone: 08-20-2022 20:20-0500 Body mass index (BMI) [Ratio] 26.6 kg/m2 Dr. Ari Sotomayor Work Phone: [facility] 08-20-2022 20:20-0500 Body temperature 97.9 [degF] Dr. Ari Sotomayor Work Phone: [facility] 08-20-2022 20:20-0500 Body weight 81.[address] Ari Sotomayor Work Phone: [facility] 08-20-2022 20:20-0500 Diastolic blood pressure 74 mm[Hg] Dr. Ari Sotomayor Work Phone: [facility] 08-20-2022 20:20-0500 Systolic blood pressure 125 mm[Hg] Dr. Ari Sotomayor Work Phone: [facility] 07-18-2022 21:54-0500 Body mass index (BMI) [Ratio] 26.6 kg/m2 Dr. Ari Sotomayor Work Phone: [facility] 07-18-2022 21:54-0500 Body temperature 97.7 [degF] Dr. Ari Sotomayor Work Phone: [facility] 07-18-2022 21:54-0500 Body weight 81.[address] Ari Sotomayor Work Phone: [facility] 07-18-2022 21:54-0500 Diastolic blood pressure 100 mm[Hg] Dr. Ari Sotomayor Work Phone: [facility] 07-18-2022 21:54-0500 Heart rate 109 /min Dr. Ari Sotomayor Work Phone: [facility] 07-18-2022 21:54-0500 Respiratory rate 19 /min Dr. Ari Sotomayor Work Phone: [facility] 07-18-2022 21:54-0500 SaO2% (BldA) [Mass fraction] 97 % Dr. Ari Sotomayor Work Phone: [facility] 07-18-2022 21:54-0500 Systolic blood pressure 139 mm[Hg] Dr. Ari Sotomayor Work Phone: [facility] 07-11-2022 08:44-0500 Body height 174 cm Kenny Serna MD Work Phone: [facility] 07-11-2022 08:44-0500 Body mass index (BMI) [Ratio] 25.47 kg/m2 Kenny Serna MD Work Phone: [facility] 07-11-2022 08:44-0500 Body weight 77.11 kg Kenny Serna MD Work Phone: [facility] 07-11-2022 08:44-0500 Diastolic blood pressure 81 mm[Hg] Kenny Serna MD Work Phone: [facility] 07-11-2022 08:44-0500 Systolic blood pressure 117 mm[Hg] Kenny Serna MD Work Phone: [facility] 07-02-2022 10:08-0500 Body mass index (BMI) [Ratio] 27 kg/m2 Dr. Ari Sotomayor Work Phone: [facility] 07-02-2022 10:08-0500 Body weight [address] Ari Sotomayor Work Phone: [facility] 06-28-2022 22:47-0400 Respiratory rate 16 /min [facility] 06-28-2022 21:30-0400 Body height 175.26 cm [facility] Work Phone: 06-28-2022 21:30-0400 Body mass index (BMI) [Ratio] 26.6 kg/m2 [facility] 06-28-2022 21:30-0400 Body temperature 97.5 [degF] [facility] 06-28-2022 21:30-0400 Body weight 81.64 kg [facility] 06-28-2022 21:30-0400 Diastolic blood pressure 99 mm[Hg] [facility] 06-28-2022 21:30-0400 Heart rate 106 /min [facility] 06-28-2022 21:30-0400 SaO2% (BldA) [Mass fraction] 93 % [facility] 06-28-2022 21:30-0400 Systolic blood pressure 140 mm[Hg] [facility] 05-04-2022 19:26-0400 Body height 175.26 cm [facility] Work Phone: 05-04-2022 19:26-0400 Body mass index (BMI) [Ratio] 25.1 kg/m2 [facility] Work Phone: 05-04-2022 19:26-0400 Body temperature 98.9 [degF] [facility] Work Phone: 05-04-2022 19:26-0400 Body weight 77.11 kg [facility] Work Phone: 05-04-2022 19:26-0400 Diastolic blood pressure 78 mm[Hg] [facility] Work Phone: 05-04-2022 19:26-0400 Heart rate 78 /min [facility] Work Phone: 05-04-2022 19:26-0400 Respiratory rate 16 /min [facility] Work Phone: 05-04-2022 19:26-0400 SaO2% (BldA) [Mass fraction] 96 % [facility] Work Phone: 05-04-2022 19:26-0400 Systolic blood pressure 158 mm[Hg] [facility] Work Phone: 03-21-2022 22:28-0400 Respiratory rate 16 /min [facility] Work Phone: 03-21-2022 19:15-0400 Body height 175.26 cm [facility] Work Phone: 03-21-2022 19:15-0400 Body mass index (BMI) [Ratio] 26.6 kg/m2 [facility] Work Phone: 03-21-2022 19:15-0400 Body temperature 97.9 [degF] [facility] Work Phone: 03-21-2022 19:15-0400 Body weight 81.64 kg [facility] Work Phone: 03-21-2022 19:15-0400 Diastolic blood pressure 78 mm[Hg] [facility] Work Phone: 03-21-2022 19:15-0400 Heart rate 88 /min [facility] Work Phone: 03-21-2022 19:15-0400 SaO2% (BldA) [Mass fraction] 98 % [facility] Work Phone: 03-21-2022 19:15-0400 Systolic blood pressure 135 mm[Hg] [facility] Work Phone: 01-27-2022 20:06-0400 Body mass index (BMI) [Ratio] 28 kg/m2 [facility] Work Phone: 01-27-2022 20:06-0400 Body temperature 98.2 [degF] [facility] Work Phone: 01-27-2022 20:06-0400 Body weight 86.18 kg [facility] Work Phone: 01-27-2022 20:06-0400 Diastolic blood pressure 96 mm[Hg] [facility] Work Phone: 01-27-2022 20:06-0400 Heart rate 95 /min [facility] Work Phone: 01-27-2022 20:06-0400 Respiratory rate 16 /min [facility] Work Phone: 01-27-2022 20:06-0400 SaO2% (BldA) [Mass fraction] 95 % [facility] Work Phone: 01-27-2022 20:06-0400 Systolic blood pressure 171 mm[Hg] [facility] Work Phone: 05-15-2020 06:18-0400 Body Temperature 98.6 [degF] [facility] 05-15-2020 06:18-0400 BP Diastolic 78 mm[Hg] [facility] 05-15-2020 06:18-0400 BP Systolic 126 mm[Hg] [facility] 05-15-2020 06:18-0400 Pulse (Heart Rate) 88 /min [facility] [place] 05-15-2020 06:18-0400 Pulse Oximetry 95 % [facility], [place] 05-15-2020 06:18-0400 Respiratory Rate 14 /min [facility], [place] 05-13-2020 18:38-0400 BMI (Body Mass Index) 31.01 kg/m2 [facility] 05-13-2020 18:38-0400 Body weight 95.25 kg [facility] 05-13-2020 18:38-0400 Height 175.3 cm [facility] 01-05-2020 17:35-0400 Body temperature 37.0 Deg Latricia [facility] Comment on above: Performed By: #### CMP #### [place] [id number] 05-13-2019 02:21-0400 BP Diastolic 81 mm[Hg] [facility] , [place] 05-13-2019 02:21-0400 BP Systolic 128 mm[Hg] [facility] , [place] 05-13-2019 02:21-0400 Pulse (Heart Rate) 88 /min [facility] 05-13-2019 02:21-0400 Pulse Oximetry 97 % [facility] , [place] 05-13-2019 02:21-0400 Respiratory Rate 18 /min [facility] 05-12-2019 19:02-0400 BMI (Body Mass Index) 30.41 kg/m2 [facility] 05-12-2019 19:02-0400 Body Temperature 97.81 [degF] [facility] 05-12-2019 19:02-0400 Body weight 90.72 kg [facility] , [place] 05-12-2019 19:02-0400 Height 172.7 cm Luis Angel Gomb[facility] [place] [facility] [place] Encounters Encounter Date Encounter Type Care Provider Facility Start: 04-14-2025 End: 04-14-2025 Emergency department patient visit Dr. Amandeep Loredo DO Work Phone: -Emergency Department Work Phone: Start: 03-14-2025 End: 03-14-2025 Emergency department patient visit Dr. Amandeep Loredo DO Work Phone: -Emergency Department Work Phone: Start: 01-05-2025 End: 01-05-2025 Emergency department patient visit Dr. Amandeep Loredo DO Work Phone: -Emergency Department Work Phone: Start: 10-20-2024 End: 10-21-2024 Emergency department patient visit Dr. Luis Angel Morales DO -Emergency Department Work Phone: Start: 10-17-2024 ambulatory Amandeep Loredo Facilit y:[facility] Start: 09-04-2024 End: 09-05-2024 Emergency department patient visit Narciso Satnamariarus Facility:[facility] Start: 08-07-2024 End: 08-07-2024 Emergency department patient visit Jordin Chisholm Facility:[facility] Start: 06-29-2024 End: 06-29-2024 [facility] Start: 05-11-2024 End: 05-12-2024 Emergency department [facility] Facility[facility] Start: 01-30-2024 End: 01-30-2024 ambulatory Cheri Kuhn RN [facility] Comment on above: Advice/health educat ion Start: 12-01-2023 End: 12-01-2023 Emergency department patient visit [facility]-Emergency Department Work Phone: Start: 11-18-2023 End: 11-18-2023 Emergency department patient visit [facility]Emergency [facility] Work Phone: Start: 10-07-2023 End: 10-07-2023 Emergency department patient visit [facility]Emergency [facility] Work Phone: Start: 09-01-2023 [facility] Start: 09-01-2023 Patient encounter procedure Alva Chauhan Clinical Communication Start: 07-27-2023 End: 07-27-2023 Office outpatient visit 15 minutes Amandeep Loredo Work Phone: [facility] Comment on above: Chronic superficial gastritis without bleeding (Primary Dx); Seizure (HCC) Start: 07-06-2023 End: 07-06-2023 Subsequent hospital visit by physician Kenny Serna MD Work Phone: [facility] X-ray Comment on above: Status post lumbar s pine surgery for decompression of spinal cord Start: 07-06-2023 End: 07-06-2023 Subsequent hospital visit by physician Shadia Kovacs PA-C Work Phone: [facility] Comment on above: Cervicalgia Start: 05-11-2023 Transcribe Orders Shadia Morales to ADA Work Phone: [facility] [employer] [facility] Comment on above: Cervicalgia (Primary Dx) Start: 03-06-2023 End: 03-06-2023 Emergency department patient visit BELINDA COVARRUBIAS MD Facility:B Start: 03-05-2023 End: 03-06-2023 Emergency department patient visit BELINDA COVARRUBIAS MD [facility] Start: 02-15-2023 End: 02-15-2023 Emergency department patient visit [facility]-Emergency Department Start: 11-25-2022 End: 11-25-2022 Subsequent hospital visit by physician Torsten [facility] Comment on above: Arrived Start: 11-25-2022 End: 11-27-2022 Emergency department patient visit Earl Vickers MD Work Phone: [facility] 4N MED SURG Comment on above: Syncope, unspecified syncope type (Primary Dx); History of spinal surgery; Dehydration; Diarrhea, unspecified type; Seizure (HCC); Nausea and vomiting, unspecified vomiting type; Right leg pain; Status post spinal surgery; Lumbar radiculopathy Start: 11-25-2022 End: 11-25-2022 Postop follow up visit related to original px Ha Carcamo PA-C Work Phone: [facility] Comment on above: Status post spinal s urgery (Primary Dx); Lumbar radiculopathy Start: 11-24-2022 Telephone encounter Kenny durand MD Work Phone: [facility] Comment on above: Reschedule Start: 11-16-2022 End: 11-17-2022 Emergency department patient visit [facility]-Emergency Department Start: 11-13-2022 Telephone encounter Brenda garcia RADON INSPECTOR Work Phone: [facility] Comment on above: Post-op Call Start: 11-06-2022 End: 11-06-2022 Subsequent hospital visit by physician [facility] C-Arm [facility] X-Ray Comment on above: Arrived Start: 11-06-2022 End: 11-10-2022 Evaluation and management of inpatient Kenny Serna MD Work Phone: [facility] TELEMETRY Comment on above: Status post lumbar s pine surgery for decompression of spinal cord (Primary Dx); Preop examination; Status post spinal surgery Start: 11-06-2022 End: 11-10-2022 Preprocedural examination done Kenny Serna MD Work Phone: [facility] TELEMETRY Start: 11-03-2022 Telephone encounter Brenda garcia RADON INSPECTOR Work Phone: [facility] Start: 10-30-2022 End: 10-30-2022 Subsequent hospital visit by physician [facility] Xr Exam Room 3 [facility] Radiology Comment on above: Mild intermittent as thma, unspecified whether complicated; Cough, unspecified type Start: 10-30-2022 End: 10-30-2022 Office outpatient visit 25 minutes Amandeep Loredo DO Work Phone: [facility] Comment on above: Lumbosacral radiculo adonay due to degenerative joint disease of spine (Primary Dx); Mild intermittent asthma, unspecified whether complicated; Gastroesophageal reflux disease without esophagitis; Cough, unspecified type; Preoperative clearance; Labile essential hypertension; Migraine without status migrainosus, not intractable, unspecified migraine type Start: 10-30-2022 End: 10-30-2022 Preoperative state Amandeep Loredo DO Work Phone: [facility] Start: 10-28-2022 ambulatory Brenda Seaman Missy P Work Phone: [facility] Comment on above: Lumbar radiculopathy (Primary Dx) Start: 10-27-2022 Telephone encounter Kenny durand MD Work Phone: [facility] Comment on above: Nurse Navigation Start: 10-14-2022 End: 10-14-2022 Emergency department patient visit Dr. Ari [facility]or [facility] Start: 10-13-2022 End: 10-13-2022 Office outpatient visit 25 minutes Kenny Serna MD Work Phone: [facility] [place] Comment on above: Lumbar stenosis with neurogenic claudication (Primary Dx); Lumbar pain; Fusion of spine of lumbar region Start: 10-03-2022 End: 10-03-2022 Subsequent hospital visit by physician Kenny Serna MD Work Phone: [facility] Special Procedures Comment on above: Spinal stenosis, lum bar region with neurogenic claudication Start: 10-02-2022 Telephone encounter Carlie Reed RN [facility] Special Procedures Start: 10-01-2022 Telephone encounter Kenny durand MD Work Phone: [facility] [place] Comment on above: nurse triage Start: 09-25-2022 End: 09-25-2022 Subsequent hospital visit by physician [facility] Exam Room [address] [facility] [address] Comment on above: Canceled (Patient) Start: 09-23-2022 End: 09-23-2022 Emergency department patient visit Dr. Ari Sotomayor Work Phone: [facility]-Emergency Department Start: 08-24-2022 End: 08-24-2022 Emergency department patient visit Dr. Ari Sotomayor Work Phone: [facility]-Emergency Department Start: 08-20-2022 End: 08-21-2022 Emergency department patient visit Dr. Ari Sotomayor Work Phone: [facility]-Emergency Department Start: 07-18-2022 End: 07-19-2022 Emergency department patient visit Dr. Ari Sotomayor Work Phone: [facility]-Emergency Department Start: 07-11-2022 Transcribe Orders Kenny metz MD Work Phone: [facility] Start: 07-11-2022 End: 07-11-2022 Office outpatient new 45 minutes Kenny Serna MD Work Phone: [facility] Comment on above: Lumbar stenosis with neurogenic claudication (Primary Dx); Lumbar pain Start: 07-02-2022 End: 07-02-[address] Ari Sotomayor Work Phone: [facility] Start: 06-28-2022 End: 06-28-2022 Emergency department patient visit [facility]-Emergency Department Start: 05-04-2022 End: 05-04-2022 Emergency department patient visit [facility]-Emergency Department Start: 04-02-2022 End: 04-02-2022 Patient encounter procedure [facility]-Laboratory Start: 03-21-2022 End: 03-21-2022 Emergency department patient visit [facility]-Emergency Department Start: 01-27-2022 End: 01-27-2022 Emergency department patient visit [facility]-Emergency Department Start: 05-13-2020 End: 05-15-2020 Evaluation and management of inpatient Augustine Rodriguez Work Phone: [facility] Comment on above: Other constipation ( Primary Dx); Gastroparesis; Constipation, unspecified constipation type; Irritable bowel syndrome with constipation Start: 09-13-2019 End: 09-13-2019 Subsequent hospital visit by physician Ari Sotomayor DO Work Phone: [facility] Comment on above: Nausea and vomiting, intractability of vomiting not specified, unspecified vomiting type; Painful urination; Flank pain Start: 05-12-2019 End: 05-13-2019 Emergency department patient visit Luis Angel Meng Work Phone: [facility] Emergency Dept Comment on above: Bilateral low back p ain without sciatica, unspecified chronicity (Primary Dx) Procedures Date Procedure Procedure Detail Performing Clinician Start: 04-14-2025 X-ray of chest, PA a nd lateral views Dr. Amandeep Loredo DO Work Phone: Start: 04-14-[address] Amandeep Loredo DO Work Phone: Start: 03-14-[address] Amandeep Loredo DO Work Phone: Start: 01-05-2025 Plain x-ray of pelvi s and lower extremity Dr. Amandeep Loredo DO Work Phone: Start: 01-05-2025 Plain x-ray of wrist Dr Neida Loredo DO Work Phone: Start: 10-20-[address] Amandeep Loredo DO Work Phone: Start: 10-20-2024 CT of abdomen and pe lvis without contrast Dr. Amandeep Loredo DO Work Phone: Start: 10-20-2024 Urnls dip stick/tabl et reagent auto microscopy Dr. Amandeep Loredo DO Work Phone: Start: 12-01-2023 CT of abdomen and pe lvis without contrast Start: 11-18-2023 X-ray of both feet Start: 10-07-2023 CT of head without contrast Start: 10-07-2023 CT of lumbar spine Start: 10-07-2023 Plain x-ray of pelvi s and lower extremity Start: 07-06-2023 NERVE CONDUCTION EVELYN T WITH EMG Shadia Kovacs PA-C Work Phone: Start: 02-15-2023 End: 02-15-2023 Plain x-ray of elbow Start: 11-27-2022 Comprehensive metabo lic panel Nguyen Miranda LILIAN Work Phone: Start: 11-26-2022 [place] tthrc r-t 2d w/ wom-mode compl spec&colr d Nguyen Miranda LILIAN Work Phone: Start: 11-26-2022 Dup-scan xtr veins c omplete bilateral study Nguyen Conroyandrew QUINTANA Work Phone: Start: 11-26-2022 Comprehensive metabo lic panel Nguyen Miranda LILIAN Work Phone: Start: 11-26-2022 Iaad ia hiv-1 ag w/h iv-1 & hiv-2 antbdy single Nguyen Conroyandrew QUINTANA Work Phone: Start: 11-26-2022 MEDICATION ASSISTED TREATMENT PANEL Nguyen Miranda LILIAN Work Phone: Start: 11-25-2022 Syphilis test non-tr eponemal antibody qual Nguyen Miranda LILIAN Work Phone: Start: 11-25-2022 Iadna respiratry pro be & rev trnscr 08-17 target Nguyen Miranda LILIAN Work Phone: Start: 11-25-2022 Ct abdomen & pelvis w/contrast material Tyler Leyva DO Work Phone: Start: 11-25-2022 Ct angiography chest w/contrast/noncontrast Tyler Leyva DO Work Phone: Start: 11-25-2022 Ct head/brain w/o co ntrast material Tyler Leyva DO Work Phone: Start: 11-25-2022 Radiologic exam ches t single view Tyler Leyva DO Work Phone: Start: 11-25-2022 Basic metabolic pane l calcium total Tyler Leyva DO Work Phone: Start: 11-25-2022 Drug screen quantita tive levetiracetam Tyler Leyva DO Work Phone: Start: 11-25-2022 Thyrotropin [Units/v olume] in Serum or Plasma Nguyen Moandrei QUINTANA Work Phone: Start: 11-25-2022 Ecg routine ecg w/le ast 12 lds trcg only w/o i&r Earl Vickers MD Work Phone: Start: 11-25-2022 PULSE OXIMETRY, CONTINUOUS Earl Vickesr MD Work Phone: Start: 11-09-2022 Basic metabolic pane l calcium total Mark Jarquin MD Work Phone: Start: 11-08-2022 Blood count complete auto&auto difrntl wbc Aj Parekh MD Work Phone: Start: 11-07-2022 Blood count complete auto&auto difrntl wbc Ha Carcamo PA-C Work Phone: Start: 11-07-2022 Potassium serum plas ma/whole blood Dawit Miller MD Work Phone: Start: 11-06-2022 End: 11-06-2022 FL GUIDANCE OR USE ONLY - NON-RESULTABLE Kenny Serna MD Work Phone: Start: 11-06-2022 End: 11-06-2022 Arthrodesis anterior interbody lumbar Kenny Serna MD Work Phone: Start: 11-06-2022 End: 11-06-2022 Srinivasan facetectomy & foramotomy 1 segment lumbar Kenny Serna MD Work Phone: Start: 11-06-2022 Blood count complete auto&auto difrntl wbc Brenda Seaman NP Work Phone: Start: 10-30-2022 Radiologic exam ches t 2 views Amandeep F Gertrude DO Work Phone: Start: 10-30-2022 Ecg routine ecg w/le ast 12 lds w/i&r Amandeep Loredo DO Work Phone: Start: 10-14-2022 CT of lumbar spine Dr. Ari Sotomayor Work Phone: Start: 10-03-2022 Myelography via lumb ar inject rs&i lumbosacral Kenny Serna MD Work Phone: Start: 10-03-2022 Blood count complete automated Amelie Chery MD Work Phone: Start: 09-23-2022 Plain chest X-ray Dr. Jordy Sotomayor Work Phone: Start: 08-24-2022 CT angiography of ch est with contrast Dr. Ari Sotomayor Work Phone: Start: 08-24-2022 Computed tomography of abdomen and pelvis with intravenous contrast Dr. Ari Sotomayor Work Phone: Start: 08-20-2022 Plain chest X-ray Dr. Jordy Sotomayor Work Phone: Start: 07-18-2022 X-ray of lumbar spin e, two or three views Dr. Ari Sotomayor Work Phone: Start: 06-28-2022 Plain x-ray of hand Dr. Ari Sotomayor Work Phone: Start: 05-04-2022 Plain x-ray of hand Start: 03-21-2022 Plain chest X-ray Start: 03-21-2022 Plain x-ray of humerus Start: 01-27-2022 Plain chest X-ray Start: 05-15-2020 BASIC METABOLIC PANE L W/ REFLEX TO MG FOR LOW K Aba Subichin Work Phone: Start: 05-15-2020 Blood count complete automated Aba Subichin Work Phone: Start: 05-14-2020 BASIC METABOLIC PANE L W/ REFLEX TO MG FOR LOW K Aba Subichin Work Phone: Start: 05-14-2020 Blood count complete automated Aba Aguilar Work Phone: Start: 05-13-2020 Urnls dip stick/tabl et rgnt auto w/o microscopy Cari Cardenas Abdirahmanhalley Work Phone: Start: 05-13-2020 Blood typing serologic abo Cari Mobley Work Phone: Start: 05-13-2020 CT Abdomen and Pelvi s W contrast IV Negar Rodriguez Work Phone: Start: 05-13-2020 BLOOD OCCULT STOOL SCREEN #1 Negar Rodriguez Work Phone: Start: 05-13-2020 Assay of lactate Kendal Rodriguez Work Phone: Start: 05-13-2020 Assay of lipase Sarah Rodriguez Work Phone: Start: 05-13-2020 Basic metabolic pane l calcium total Negar Rodriguez Work Phone: Start: 05-13-2020 Hepatic function panel Negar Rodriguez Work Phone: Start: 05-13-2020 Prothrombin time Kendal Rodriguez Work Phone: Start: 05-13-2020 Blood count complete auto&auto difrntl wbc Negar Rodriguez Work Phone: Start: 09-13-2019 Ct abdomen & pelvis w/o contrast material Ari E Fracasso DO Work Phone: Start: 09-13-2019 Basic metabolic pane l calcium total Ari E Fracasso DO Work Phone: Start: 05-12-2019 Iadna-dna/rna gi pth gn multiplex probe tq 12-25 Edward Denis Work Phone: Start: 05-12-2019 Radex hip unilateral with pelvis 2-3 views Beverly Phillips Work Phone: Start: 05-12-2019 Radex spine lumbosac ral 2/3 views Beverly Phillips Work Phone: Start: 05-12-2019 Basic metabolic pane l calcium total Edward Denis Work Phone: Start: 05-12-2019 Blood count complete auto&auto difrntl wbc Edward Denis Work Phone: Start: 05-12-2019 C-reactive protein Ezequiel Denis Work Phone: Start: 05-12-2019 Prothrombin time Edward Denis Work Phone: Start: 05-12-2019 Sedimentation rate r bc automated Edward Denis Work Phone: Start: 05-12-2019 Radex spine lumbosac ral 2/3 views Luis Angel Ankush Gombash Work Phone: Cholecystectomy BELINDA Lechuga MD Entire vertebral col umn (body structure) BELINDA COVARRUBIAS MD Gastric electrical stimulator (physical object) BELINDA COVARRUBIAS MD Hysterectomy BELINDA Ferreira Influenza Types A,B Direct FA (CRAIG) Viral antigen assay Dr. Ari Sotomayor Work Phone: Viral antigen assay Dr. Ari Sotomayor Work Phone: Plan of Treatment Date Care Activity Detail Author Start: 2029 RSV Immunization age d 60 or older (1 - 1-dose 60+ series) RSV Immunization aged 60 or older (1 - 1-dose 60+ series) [facility] Start: 04-14-2025 [facility] Start: 04-14-2025 [facility] Start: 03-14-2025 [facility] Start: 03-14-2025 XR Thoracic spine Views [facility] Start: 03-14-2025 Xray thoracic spine Thoracic Spine 2 Views [facility] Start: 01-05-2025 [facility] Start: 10-21-2024 [facility] Start: 12-01-2023 [facility] Start: 11-18-2023 [facility] Start: 10-31-2023 Diabetes mellitus screening Diabetes Screening [facility] Start: 09-02-2023 End: 09-02-2023 Patient encounter procedure 09/02/2023 8:40 AM EST Office Visit [facility] [address] [place] [address] Leandra Berger PA-C [address] [place] [address] [facility] Start: 04-24-2023 COVID-19 Vaccine () COVID-19 Vaccine () [facility] Start: 04-24-2023 Influenza vaccination [facility] Start: 02-04-2023 End: 02-04-2023 Patient encounter procedure 02/04/2023 Office Visit Orthopedic Surgery Kenny Serna MD [address] [facility] [address] [place] [address] [facility] Start: 02-04-2023 End: 02-04-2023 Documentation procedure 02/04/2023 Documentation Orthopedic Surgery [facility] Start: 12-17-2022 End: 12-17-2022 Patient encounter procedure 12/17/2022 Office Visit Orthopedic Surgery Kenny Serna MD [address] [facility] [address] [place] [address] [facility] Start: 11-26-2022 End: 11-26-2022 Patient encounter procedure 11/26/2022 Office Visit Orthopedic Surgery Ha Carcamo PA-C [address] [facility] [address] [place] [address] [facility] Start: 11-26-2022 End: 11-26-2022 Documentation procedure 11/26/2022 Documentation Orthopedic Surgery [facility] Start: 11-25-2022 End: 11-25-2022 Patient encounter procedure 11/25/2022 Office Visit Orthopedic Surgery Ha Carcamo PA-C [address] [facility] [address] [place], [place] [id number] [facility] Start: 11-25-2022 End: 11-25-2022 Documentation procedure 11/25/2022 Documentation Orthopedic Surgery [facility] Start: 11-06-2022 End: 11-06-2022 Admission to same day surgery center 11/06/2022 Surgery Procedural Kenny Serna MD [address] [facility] [address] [place], [place] [id number] ANTERIOR LUMBAR INTERBODY FUSION L3/4 VIA RETROPERITONEAL APPROACH POSTERIOR LATERAL FUSION WITH INSTRUMENTATION L3/L4 LUMBAR L3/L4 LAMINECTOMY [90007 (CPT )] [facility] MAIN OR Comment on above: ANTERIOR LUMBAR INTE RBODY FUSION L3/4 VIA RETROPERITONEAL APPROACH POSTERIOR LATERAL FUSION WITH INSTRUMENTATION L3/L4 LUMBAR L3/L4 LAMINECTOMY [59645 (CPT )] Start: 11-06-2022 End: 11-06-2022 Anesthesia consultation 11/06/2022 Anesthesia Event Procedural Ivy Shelby NP [address] [place] [address] [facility] MAIN OR Start: 11-06-2022 End: 11-06-2022 Arthrodesis anterior interbody lumbar ANTERIOR LUMBAR MICRODISCECTOMY AND FUSION XLIF Radiculopathy, lumbar region Spinal stenosis of lumbar region Spondylolisthesis, lumbar region Other intervertebral disc degeneration, lumbar region 11/06/2022 12:30 PM EDT [facility] Operating Room Start: 11-06-2022 End: 11-06-2022 Srinivasan facetectomy & foramotomy 1 segment lumbar POSTERIOR LUMBAR LAMINECTOMY FACETECTOMY FORAMINOTOMY AND DECOMPRESSION Radiculopathy, lumbar region Spinal stenosis of lumbar region Spondylolisthesis, lumbar region Other intervertebral disc degeneration, lumbar region 11/06/2022 12:30 PM EDT [facility] Operating Room Start: 11-06-2022 Subsequent hospital visit by physician 11/06/2022 Hospital Encounter Procedural Kenny Serna MD [address] [facility] [address] [place] [id number] [facility] MAIN OR Start: 10-31-2022 End: 10-31-2022 Admission to establishment [facility] Pre-Admit Testing Start: 10-30-2022 End: 10-30-2022 Patient encounter procedure 10/30/2022 Office Visit Family Medicine Amandeep Loredo, DO [address] [place] [id number] [facility] Start: 10-28-2022 End: 10-29-2023 Comprehensive metabolic 1998 panel - Serum or Plasma Comprehensive metabolic panel Lab Routine Lumbar radiculopathy Expected: 10/28/2022 (Approximate), Expires: 10/29/2023 [facility] [employer] [facility] Work Phone: Comment on above: Expected: 10/28/2022 (Approximate), Expires: 10/29/2023 Start: 10-28-2022 End: 10-29-2023 Hemoglobin A1c/Hemoglobin.total in Blood Hemoglobin A1c Lab Routine Lumbar radiculopathy Expected: 10/28/2022 (Approximate), Expires: 10/29/2023 [facility] Comment on above: Expected: 10/28/2022 (Approximate), Expires: 10/29/2023 Start: 10-28-2022 End: 10-29-2023 Methicillin resistant Staphylococcus aureus (MRSA) DNA [Presence] in Nose by KRISTEN with probe detection MRSA by PCR Microbiology Routine Lumbar radiculopathy Expected: 10/28/2022 (Approximate), Expires: 10/29/2023 [facility] Comment on above: Expected: 10/28/2022 (Approximate), Expires: 10/29/2023 Start: 10-13-2022 End: 10-13-2023 25-hydroxyvitamin D3 [Mass/volume] in Serum or Plasma Vitamin D 25 hydroxy Lab Routine Lumbar stenosis with neurogenic claudication Expected: 10/13/2022 (Approximate), Expires: 10/13/2023 [facility] Comment on above: Expected: 10/13/2022 (Approximate), Expires: 10/13/2023 Start: 10-13-2022 End: 10-13-2023 CBC W Auto Differential panel - Blood CBC auto differential Lab Routine Lumbar stenosis with neurogenic claudication Expected: 10/13/2022 (Approximate), Expires: 10/13/2023 [facility] [employer] [facility] Work Phone: Comment on above: Expected: 10/13/2022 (Approximate), Expires: 10/13/2023 Start: 10-13-2022 End: 10-13-2023 Comprehensive metabolic 1998 panel - Serum or Plasma Comprehensive metabolic panel Lab Routine Lumbar stenosis with neurogenic claudication Expected: 10/13/2022 (Approximate), Expires: 10/13/2023 [facility] [employer] Comment on above: Expected: 10/13/2022 (Approximate), Expires: 10/13/2023 Start: 10-13-2022 End: 10-13-2023 Hemoglobin A1c/Hemoglobin.total in Blood Hemoglobin A1c Lab Routine Lumbar stenosis with neurogenic claudication Expected: 10/13/2022 (Approximate), Expires: 10/13/2023 [facility] [employer] Comment on above: Expected: 10/13/2022 (Approximate), Expires: 10/13/2023 Start: 10-13-2022 End: 10-13-2022 Patient encounter procedure 10/13/2022 Office Visit Orthopedic Surgery Kenny Serna MD [address] [place] [id number] [facility] [place] Start: 10-03-2022 End: 10-03-2022 Patient encounter procedure 10/03/2022 Appointment Radiology [facility] Special Procedures Start: 09-25-2022 Subsequent hospital visit by physician 09/25/2022 Hospital Encounter Radiology [facility] Start: 09-23-2022 [facility] Start: 08-20-2022 [facility] Start: 06-28-2022 Plain x-ray of hand Hand Min 3 Views [facility] Work Phone: Start: 06-28-2022 XR Hand GE 3 Views [facility] Work Phone: Start: 04-24-2022 Influenza vaccination Influenza Vacc ine (#1) [facility] [employer] Start: 04-02-2022 Procedure [facility] Work Phone: Start: 05-13-2021 Screening for malign ant neoplasm of colon [facility] [employer] Start: 05-11-2021 Breast cancer screen Breast cancer s [place], [place] Start: 09-13-2020 Influenza vaccination Flu vaccine (# 1) [facility] Work Phone: Comment on above: Postponed from 04/24 (Patient Refused) Start: 05-21-2020 End: 05-21-2020 Office Visit 05/21/2020 Office Visit Family Medicine Amandeep Loredo DO [address] [place] [id number] [phone] [facility] Start: 04-24-2020 Influenza vaccination Flu vaccine (# 1) [place] Start: 04-24-2019 Influenza vaccination Flu vaccine (# 1) [place] Start: 2019 Breast cancer screen [facility]: Start: 2019 Colon cancer screen colonoscopy Colon cancer screen colonoscopy [place] Start: 2019 Screening for malign ant neoplasm of breast Breast cancer screen [place] Start: 2019 Screening for malign ant neoplasm of colon Colon cancer screen colonoscopy [place] Start: 2019 Shingles (RZV) Vacci ne (1 of 2) Shingles (RZV) Vaccine (1 of 2) [facility] Start: 2019 Shingles Vaccine (1 of 2) Shingles Vaccine (1 of 2) [place] Start: 2019 Zoster Vaccines (1 of 2) Zoster Vacc ila (1 of 2) [facility] Start: 09-24-2014 Annual wellness visit Annual W ellness Visit ([id number]) [facility] Start: 04-24-2014 Pneumococcal Vaccine : Pediatrics (0 to 5 Years) and At-Risk Patients (6 to 64 Years) (2 - PCV) Pneumococcal Vaccine: Pediatrics (0 to 5 Years) and At-Risk Patients (6 to 64 Years) (2 - PCV) [facility] Start: 04-24-2014 Pneumococcal Vaccine : Pediatrics (0 to 5 Years) and At-Risk Patients (6 to 64 Years) (2 of 2 - PCV) Pneumococcal Vaccine: Pediatrics (0 to 5 Years) and At-Risk Patients (6 to 64 Years) (2 of 2 - PCV) [facility] Start: 2014 Cholesterol [Mass/volume] in Serum or Plasma Cholesterol [facility] Start: 2014 Screening for malign ant neoplasm of colon [facility] Start: 2009 Lipid panel Lipid screen [place], [place] Start: 2009 Lipid screen Lipid screen [place] Start: 2009 Screening for malign ant neoplasm of breast [facility] Start: 1990 Screening for malign ant neoplasm of cervix Pap Smear [facility] Start: 01-08-1988 DTaP/Tdap/Td vaccine (1 - Tdap) DTaP/Tdap/Td vaccine (1 - Tdap) [place] Start: 01-08-1988 DTaP/Tdap/Td Vaccine s (1 - Tdap) DTaP/Tdap/Td Vaccines (1 - Tdap) [facility] Start: 01-08-1988 Hepatitis A (HAV) Vaccine (optional start 19+ years) Hepatitis A (HAV) Vaccine (optional start 19+ years) [facility] Start: 01-08-1988 Hepatitis A Vaccines (1 of 2 - Risk 2-dose series) Hepatitis A Vaccines (1 of 2 - Risk 2-dose series) [facility] Start: 01-08-1988 Hepatitis B vaccination Hepati tis B (HBV) Vaccine (1 of 3 - 19+ 3-dose series) [facility] Start: 1987 Diabetes mellitus screening Diabetes Screening [facility] Start: 1987 Hepatitis C screening [facility] Start: 1987 Tetanus + diphtheria + acellular pertussis vaccine (product) Tdap Booster [facility] Start: 01-08-1984 HIV screen HIV screen [place], [place] Start: 01-08-1984 HIV screening [facility] Start: 1981 Depresssion Monitoring Depresssion M onitoring [facility] Start: 01-08-1980 DTaP/Tdap/Td vaccine (1 - Tdap) DTaP/Tdap/Td vaccine (1 - Tdap) [facility] Work Phone: Start: 1970 Hepatitis A Vaccines (1 of 2 - Risk 2-dose series) Hepatitis A Vaccines (1 of 2 - Risk 2-dose series) [facility] Start: 1970 MMR Vaccines (1 of 1 - Standard series) MMR Vaccines (1 of 1 - Standard series) [facility] Start: 1969 COVID-19 Vaccine (#1) COVID-19 Vacci ne (#1) [facility] Start: 1969 Examination of skin Derm Melanoma Sk in Check [facility] Start: 1969 Hepatitis B Vaccines (1 of 3 - 3-dose series) Hepatitis B Vaccines (1 of 3 - 3-dose series) [facility] Start: 1969 HIV screening HIV Screening [facility] Start: 1969 Lipid panel Lipid Panel [facility] Start: 1969 Medicare Advantage Annual Wellness Visit (AWV) Medicare Advantage Annual Wellness Visit (AWV) [facility] Start: 1969 Screening for malign ant neoplasm of colon [facility] Basic Metabolic Pane l w/ Reflex to MG Basic Metabolic Panel w/ Reflex to MG Lab Routine Daily until discontinued starting 05/14/2020, 2 completed [employer] Comment on above: Daily until disconti nued starting 05/14/2020, 2 completed CBC CBC Lab Routine Daily until discontinued starting 05/14/2020, 2 completed [employer] Comment on above: Daily until disconti nued starting 05/14/2020, 2 completed End: 09-13-2019 CT ABDOMEN PELVIS WO CONTRAST Additional Contrast? Radiologist Recommendation CT ABDOMEN PELVIS WO CONTRAST Additional Contrast? Radiologist Recommendation Imaging STAT Painful urination Flank pain 1 Occurrences starting 09/13/2019 until 09/13/2019 [facility] Work Phone: Comment on above: 1 Occurrences starti ng 09/13/2019 until 09/13/2019 OUTSIDE PROCEDURE SCAN OUTSIDE P ROCEDURE SCAN Procedures Ordered: 10/30/2022 [facility] Comment on above: Ordered: 10/30/2022 OUTSIDE PROCEDURE SCAN OUTSIDE P ROCEDURE SCAN Procedures Ordered: 09/24/2022 [facility] Comment on above: Ordered: 09/24/2022 OUTSIDE PROCEDURE SCAN OUTSIDE P ROCEDURE SCAN Procedures Ordered: 07/06/2023 [facility] Comment on above: Ordered: 07/06/2023 Oxygen therapy [[facility] Data Set] Initiate Oxygen Therapy Protocol Respiratory Care Routine Daily until discontinued starting 05/14/2020 [facility] [place] Comment on above: Daily until disconti nued starting 05/14/2020 Patient Education [facility] Work Phone: Patient referral [facility] Work Phone: Vitamin C Vitamin C Lab ST AT 11/26/2022 4:39 AM EDT [facility] Work Phone: End: 07-06-2023 XR Lumbar spine Views W flexion and W extension [facility] Work Phone: Comment on above: Once for 1 Occurrenc es starting 07/06/2023 until 07/06/2023 Immunizations Immunization Date Immunization Notes Care Provider Prosper saini 05-05-2018 Influenza virus vaccine [facility] 05-05-2018 influenza virus vacc ine, unspecified formulation Ari Sotomayor DO Work Phone: [facility] Work Phone: 05-05-2018 influenza, seasonal, injectable Kenny Serna MD Work Phone: [facility] 05-05-2018 influenza, seasonal, injectable, preservative free Kenny Serna MD Work Phone: [facility] 07-24-2016 influenza virus vacc ine, unspecified formulation Ari Sotomayor DO Work Phone: [facility] 07-24-2016 influenza, injectabl e, quadrivalent, preservative free [facility] 07-24-2016 influenza, seasonal, injectable [facility] 04-24-2013 Influenza virus vaccine [facility] 04-24-2013 influenza virus vacc ine, unspecified formulation Ari Sotomayor DO Work Phone: [facility] Work Phone: 04-24-2013 influenza, seasonal, injectable Kenny Serna MD Work Phone: [facility] 04-24-2013 influenza, seasonal, injectable, preservative free Kenny Serna MD Work Phone: [facility] 04-24-2013 pneumococcal polysaccharide vaccine, 23 valent Ari Sotomayor DO Work Phone: [facility] Work Phone: 04-24-2013 Pneumococcal Vaccine [facility] Work Phone: 04-24-2013 pneumococcal vaccine , unspecified formulation [facility] Payers Date Payer Category Payer Unknown [id number] 2024 Self-pay [id number] 2021 Private Health Insurance [facility] [id number] 2021-Present [phone] [address] [address] [place] [address] Medicare HMO [id number] 2016 Private Health Insurance [facility] [address] [facility] xxxxxxxxx 2016-Present [phone] [address] [place] [address] xxxxxxxxx [id number] 2016 Private Health Insurance [id number] 2016 Unknown [id number] 2012 Unknown ANTHEM - BLUE CR OSS BLUE CROSS/HMO,PPO,POS [id number] 2012-Present [address] [place] [address] PPO [id number] 2012 Medicare [id number] 1970 Unknown [id number] Unknown [id number] 462 Unknown [id number] 462 Unknown [id number] 462 Unknown [id number] 462 Unknown [id number] 462 Unknown [id number] 462 Unknown [id number] 462 Unknown [id number] 462 Social History Date Type Detail Facility Start: 05-12-2019 End: 04-14-2025 Tobacco smoking status NHIS Current every day smoker [employer] [place] Start: 05-12-2019 End: 11-07-2022 Cigarettes smoked current (pack per day) - Reported [employer] Start: 11-15-2018 End: 05-12-2019 Alcohol intake No [employer] Start: 1970 Sex Assigned At Not on file M [facility] [employer] [place], [place] Start: 05-15-2020 End: 11-03-2022 Tobacco use and exposure [facility] [place] [place] Start: 05-15-2020 End: 11-07-2022 Alcohol intake Current non-drinker of alcohol (finding) [email or web address] Phone: Start: 07-01-2019 End: 11-25-2022 History SDOH Alcohol Frequency 1 [facility] Work Phone: Start: 09-13-2019 History SDOH Social Connections Phone 3 [facility] Work Phone: Start: 09-13-2019 History SDOH Social Conne[employer] Membership 2 [facility] Work Phone: Start: 09-13-2019 History SDOH Social Connections Living 5 [facility] Work Phone: Start: 09-13-2019 End: 11-25-2022 History SDOH Physical Activity DPW 0 [facility] Work Phone: Start: 07-01-2022 End: 05-15-2023 Exposure to SARS-CoV-2 (event) Not sure [place], [place] Start: 03-21-2022 End: 12-01-2023 Tobacco smoking status NHIS Unknown if ever smoked [facility] Start: 03-30-2020 None [facility] Start: 06-18-2020 With Family [facility] Start: 12-26-2020 Cigarettes [facility] Start: 1970 Sex Assigned At Female [facility] History of tobacco use Cigarette Smoker S [facility] How often to you hav e a drink containing alcohol? Never [facility] How many standard drinks containing alcohol do you have on a typical day? Patient does not drink [facility] Start: 03-05-2023 Tobacco smoking status Light t obacco smoker (finding) [facility] Sex Assigned At Sex [facility] Start: 10-09-2015 Tobacco smoking stat us AKIS Occasional tobacco smoker [facility] Start: 01-23-2009 Tobacco Comment increased to 2 ppd in 2002 with acute stress. quit 01/15/2009 [facility] Start: 10-08-2015 Alcohol Comment socially n the past [facility] Medical Equipment Procedure Code Equipment Code Equipment Origin al Text Equipment Identifier Dates Pt has unknown aneurysm coil/clamp in brain & gastric pacer FDA Start: 08-24-2018 Pt has unknown aneurysm coil/clamp in brain & gastric pacer FDA Start: 08-24-2018 Pt has unknown aneurysm coil/clamp in brain & gastric pacer FDA Start: 08-24-2018 Pt has unknown aneurysm coil/clamp in brain & gastric pacer FDA Start: 08-24-2018 Pt has unknown aneurysm coil/clamp in brain & gastric pacer FDA Start: 08-24-2018 Pt has unknown aneurysm coil/clamp in brain & gastric pacer FDA Start: 08-24-2018 Pt has unknown aneurysm coil/clamp in brain & gastric pacer FDA Start: 08-24-2018 Pt has unknown aneurysm coil/clamp in brain & gastric pacer FDA Start: 08-24-2018 Putty Attrax 10c c - [id number] Start: 11-06-2022 Conn Reline-O 5-6/5-6 O-H Rot - [id number] Start: 11-06-2022 Pt has unknown aneurysm coil/clamp in brain & gastric pacer FDA Start: 08-24-2018 Pt has unknown aneurysm coil/clamp in brain & gastric pacer FDA Start: 08-24-2018 Cage Modulus Xl [id number] 10deg - [id number] Start: 11-06-2022 Screw Reline-O 2 s Pa 6.5x50 - [id number] Start: 11-06-2022 Screw Reline-O 2 s Pa 8.5x50 - [id number] Start: 11-06-2022 Screw Reline-O 2 s Pa 5.5x50 - [id number] Start: 11-06-2022 Pako Reline-O Ti 5.5x55 Lord - [id number] Start: 11-06-2022 Pako Reline-O Ti 5.5x40 Lord - [id number] Start: 11-06-2022 Screw Reline Ope n Tulip 5.5 - [id number] Start: 11-06-2022 Pt has unknown aneurysm coil/clamp in brain & gastric pacer FDA Start: 08-24-2018 Pt has unknown aneurysm coil/clamp in brain & gastric pacer FDA Start: 08-24-2018 Pt has unknown aneurysm coil/clamp in brain & gastric pacer FDA Start: 08-24-2018 Pt has unknown aneurysm coil/clamp in brain & gastric pacer FDA Start: 08-24-2018 Pt has unknown aneurysm coil/clamp in brain & gastric pacer FDA Start: 08-24-2018 Pt has unknown aneurysm coil/clamp in brain & gastric pacer FDA Start: 08-24-2018 Goals Date Patient Goal Desired Activity /State Comment on above: Patient stated Goal: I will bring my medication bag with all of my medications in it to my next office visit, to make sure that I am taking the correct medications, at the right time and the correct dose Barrier: Forget Plan for overcoming my barriers: Leave medication bag in sight, put note on calendar, set an alarm on phone with date and why Confidence: Anticipated goal date: Bring medication bag to your office visits Functional Status Date Assessment Result Facility 03-05-2023 Functional Status Ambulating in bolden, Ambulating in room, Awake [facility] Mental Status Date Assessment Result Facility 03-05-2023 Mental Status Oriented x 4 [facility] 09-23-2022 Cognitive function Level Of Cons ciousness Awake;Alert;Appropriate;Follow s Commands [facility] Work Phone: 08-24-2022 Cognitive function Voice/Name [facility] Work Phone: 03-21-2022 Cognitive function Level Of Cons ciousness Awake;Alert;Appropriate;Follow s Commands [facility] Work Phone: Clinical Notes 07-11-2022 to 04-14-2025 Note Date & Type Note Facility 04-14-2025 Radiology Diagnostic study note [facility] Imaging Services [address] [place] [address] Chest PA and Lateral MR#: [id number] Acct: [id number] Name: ORTIZ JACOBS Rep #: [id number] : 1970 F 55 From: David Leonardo MD PCP: Dr. Amandeep Loredo, Status: RE G ER Study:Chest PA and Lateral Date of Exam: 04/14/25 Exam# [id number] Ordering Dr: Alfred Parkinson DO PROCEDURE: CHEST PA AND LATERAL 04/14/2025 REASON FOR EXAM: CHEST PAIN TECHNIQUE: CHEST PA AND LATERAL COMPARISON: Chest x-ray of 09/23/2022. RAD/Chest PA and Lateral IMPRESSION: Prior lower cervical surgery is seen. Right upper quadrant abdominal surgical clips again noted. Lungs are moderately hyperinflated, with chronic lung changes also noted, most prominent in the lower lung zones. Best seen on the lateral view is airspace disease in the right lower lobe, concerning for the presence of pneumonitis. No pleural effusion or pneumothorax is seen. The cardiomediastinal silhouette is stable, without evidence of cardiomegaly. No acute osseous change is seen. [facility] CC: Dr. Alfred Parkinson DO; Dr. Amandeep Loredo DO ~ Radio Station Engineer: Signed [facility] 03-14-2025 Discharge summary [facility] 03-14-2025 Discharge summary Note Date/Time March 14, 2025 3:44pm [facility] Medical Records Department [address] [place] [address] Emergency Department Summary 03/14/25 MR#: [id number] Acct: [id number] Name: ORTIZ JACOBS Rep #:[id number] : 1970 55 From: Zain Carvajal MD PCP: Dr. Amandeep Loredo DO Status:RE G ER Location: ED HPI History of Present Illness Chief Complaint: Back Informant: patient Onset/Context/Timing Onset: Today and Hours Context: Sudden Onset Injury: - (Catching her 4-year-old grandson as he was falling off a slide. Sudden onset of thoracic back pain) Timing: Continuous Quality: Sharp Location: Thoracic Current Severity: 7/10 Maximum Severity: 7/10 Worsened by: improves with Movement Relieved by: Nothing Associated Symptoms Associated Symptoms: Negative for Numbness, Tingling, Radiation to Right Leg, Radiation to Left Leg, Fever, Abdominal Pain, Dysuria, Unable to Ambulate, Unable to Transfer, Urinary Retention, Urinary Incontinence, Constipation or Fecal Incontinence Narrative Narrative: 55-year-old female history of prior [place], brain aneurysm, and A-fib not on blood thinners. Has had both a prior cervical fusion and lumbar fusion. 91. Her grandson was playing on a slide. He started to fall off a slide and she caught him as she was catching him she felt a pop and immediate pain in her thoracic spine. She did not fall. She denies any numbness or weakness to her upper or lower extremities. She states it is a burning pain going down her spine. She denies any radiation into her legs. No incontinence. Prior similar symptoms: No Recent Illness/Hospitalization: No [facility] Medical History NSTEMI (non-ST elevated myocardial infarction) Cardiac arrest COVID-19 Brain aneurysm Chronic pain Rheumatoid arthritis Kidney stones Kidney disease GERD (gastroesophageal reflux disease) Former smoker Sleep apnea Asthma Migraines Seizures Home Medications ?Medication ?Instructions ?Recorded ?Last Taken ?Type hprttclf-zdsh-sewd 8 mg-folic 400 1 tab PO DAILY suppl ement 03/21/19 07/26/21 History mcg-K 50 mcg-lutein 300 mcg tablet levetiracetam 750 mg tablet 1,500 mg PO TID seizures 0 12/04/19 07/26/21 History fluticasone propionate 50 1 spray intranasal DAILY 09/15 Unknown History mcg/actuation nasal spray,suspension (Flonase Allergy Relief) lidocaine 5 % topical ointment 1 applic topical TID RI N skin 11/17/22 Unknown Rx irritation #50 grams cyclobenzaprine 10 mg tablet 10 mg PO TID PRN Muscle S pasm #20 05/11/24 Unknown Rx TABLETS oxycodone-acetaminophen 5 mg-325 1 tab PO Q6H PRN PRN Pain 3 days 06/29/24 Unknown Rx mg tablet #10 TABLETS oxycodone-acetaminophen 5 mg-325 1 tab PO Q6H PRN pain 5 days #20 08/07/24 Unknown Rx mg tablet (Percocet) tabs gabapentin 400 mg capsule 800 mg PO DAILY 09/04/24 Unk nown History levetiracetam 1,000 mg tablet 1,000 mg PO Q12H 5 Unknown History (Keppra) omeprazole 20 mg capsule,delayed 20 mg PO BID 09/04/24 Unknown History release tizanidine 2 mg capsule 2 mg PO TID PRN muscle spast icity 10/21/24 Unknown Rx #14 caps oxycodone-acetaminophen 5 mg-325 1 tab PO Q6H PRN PRN Pain 3 days 01/05/25 Unknown Rx mg tablet #12 TABLETS metaxalone 800 mg tablet 800 mg PO TID 7 days #21 tab s 07/22/25 Unknown Rx oxycodone-acetaminophen 5 mg-325 1 tab PO Q6H PRN pain 4 days #12 03/14/25 Unknown Rx mg tablet (Percocet) tabs Allergy/AdvReac Type Severity Reaction Status Date / Time Penicillins Allergy Anaphylaxis Verified 03/14/25 14:01 propoxyphene napsylate (From Allergy Rash Verified 03/14/25 14:01 Darvocet-N 100) adhesive tape (plastic tape) AdvReac Other Verified 03/14/25 14:01 hydrocodone bitartrate (From AdvReac Itching Verified 03/14/25 14:01 Vicodin) Iodinated Contrast Media AdvReac Vomiting Verified 03/14/25 14:01 (contrast dye - iodinated) venom-honey bee (bee venom AdvReac Chest Verified 03/14/25 14:01 (honey bee)) tightness Surgical History Previous back surgery History of appendectomy History of cholecystectomy Social History household members: none Smoking Status: Current every day smoker tobacco type: cigarettes substance use type: does not use ROS ROS ED ROS Narrative Denies recent illness. Back pain episode today. Constitutional Constitutional ED: Denies chills or fever(s) Eyes Eyes: Denies blurry vision ENT ENT ED: Denies ear pain, rhinorrhea or sore throat Cardiovascular Cardiovascular: Denies chest pain Respiratory/Chest Respiratory/Chest: Denies dyspnea Gastrointestinal Gastrointestinal: Denies abdominal pain Genitourinary Genitourinary ED: Denies dysuria or hematuria Musculoskeletal Musculoskeletal: Reports back pain; Denies arthralgias or myalgias Integumentary Denies abscess or Abrasions Neurologic Neurologic: Denies headache(s) Psychiatric Psychiatric: Denies anxiety Endocrine Endocrinology: Denies cold intolerance Hematologic/Lymphatic Hematologic/Lymphatic: Denies easy bleeding, easy bruising or lymphadenopathy Allergic/Immunologic Allergic/Immunologic ED: Denies mouth swelling, tongue swelling or urticaria EXAM Physical Exam Narrative Exam Narrative: 55-year-old female sitting upright in bed complaining of mid back pain.. Vital signs are stable afebrile. H EENT exam pupils round react light. Extra motionsare intact. No trauma. Neck nontender. Trachea midline. Lungs clear to auscultation bilaterally. Heart regular rhythm no murmur. Rate about 90. Chest wall ribs nontender. Abdomen soft nontender. Moving all 4 extremities. Normal r d engineer strength. Normal dorsi plantarflexion. Normal sensation. Normal range of motion. No cauda equina. No saddle anesthesia. Negative straight legraise. Back she has pain over her mid thoracic region and parathoracic soft tissue. Cervical and lumbar spine are completely nontender. There is no ecchymosis or bruising. No redness or warmth. Neurologically she is awake alert. Answering questions following commands. Const Vital Signs: 03/14/25 13:58 Temperature 97.5 F L Temperature Source Oral Pulse Rate 93 Respiratory Rate 20 H Blood Pressure 160/88 H Blood Pressure Mean 112 Pulse Ox 98 Oxygen Delivery Method Room Air Positive well nourished and well developed; Negative for cachectic, contracturesor unkempt General Appearance ED: well developed; Negative for unkempt, cachectic, contractures, NAD or pallor Nutritional Appearance: Negative for cachectic HEENT Reports moist mucous membranes Negative for trauma or tenderness Eyes PERRL and EOMs intact bilaterally Neck no lymphadenopathy, supple and no JVD General: Negative for tenderness Resp normal respiratory effort and clear to auscultation bilaterally Cardio regular rate, regular rhythm, S1 normal heart sound, S2 normal heart sound and no murmurs Palpation: Negative for palpable S3 Rate: Negative for bradycardia or tachycardic Rhythm: Negative for abnormal rhythm Bruits: Negative for other GI normal to inspection, nondistended, normoactive bowel sounds, soft to palpation,non-tender, non-distended and no masses Inspection: Negative for abdominal distention Palpation: Negative for tender, guarding or rebound tenderness present Back/Spine normal to inspection; Negative for no thoracic nor lumbar tenderness Back/Spine Narrative: Thoracic spine and parathoracic soft tissue tenderness. No ecchymosis or bruising no redness or wounds. Both the lumbar and cervical spine are completely nontender. Cervical Spine: Negative for cervical spine tenderness and Negative for paracervical muscle tenderness Thoracic Spine / Upper Back: paraspinal muscle tenderness Extremity normal to inspection and no clubbing, cyanosis or edema Neuro oriented x3 and no sensory deficits noted Sensorium / Orientation: alert; Negative for confused, lethargic or stuporous Motor Exam: strength 5/5 throughout Psych mental status grossly normal Appearance: Negative for unkempt Skin no rashes or lesions noted and no wounds General Skin Exam: Negative for jaundice or pallor Lesions: No lesion noted Rashes: No rashes noted Trauma: Negative for abrasion or puncture Wounds: Negative for wounds noted MDM MDM MDM Narrative Medical decision making narrative: 55-year-old female with sudden onset thoracic clinic today when she caught her 4-year-old grandson following from a slide. Pain in her parathoracic spine and thoracic tenderness. X-ray being obtained. She was given IV morphine for pain and Zofran. Repeat exam patient is doing much better around 330 after receiving the IV morphine. I think is a secondary to parathoracic muscle strain and spasm. Her x-ray was unremarkable of thoracic spine. She was placed on limited Percocet for pain. 12 no refill. Motrin. Hot shower, warm bath massage and a muscle relaxant. History & Record Review Discussion w/independent historian: Patient Additional record(s) reviewed:: Prior inpatient record, Prior outpatient record,Prior ED visit and Prior labs Radiography X-Ray: T-Spine, Read by ED Physician, Normal, No Fracture and Normal Bony Alignment Diagnostic Testing: Thoracic spine, 3 views, interpreted myself shows no acute abnormality. No fracture. No compression fracture. I went over the x-ray with the patient. Discharge Plan Triage Chief Complaint: Back ED Provider: Zain Carvajal Dx/Rx/DC Orders Clinical Impression: Acute thoracic myofascial strain, Back muscle spasm, History of back surgery, History of atrial fibrillation Instructions: ED Muscle Spasm, ED Thoracic Spine Strain Prescriptions: New oxycodone-acetaminophen [Percocet] 5-325 mg tablet 1 tab PO Q6H PRN (Reason: pain) 4 Days Qty: 12 0RF metaxalone 800 mg tablet 800 mg PO TID 7 Days Qty: 21 0RF No Action mifduqyr-tie-qexp-FA-vit K-lut 1 EACH tablet 1 tab PO DAILY levetiracetam 750 MG tablet 1,500 mg PO TID fluticasone propionate [Flonase Allergy Relief] 50 mcg/actuation [place],Suspension 1 spray INTRANASAL DAILY Rx Instructions: administer into each nostril lidocaine 5 % ointment 1 applic topical TID PRN (Reason: skin irritation) Qty: 50 1RF cyclobenzaprine 10 mg tablet 10 mg PO TID PRN (Reason: Muscle Spasm) Qty: 20 0RF oxycodone-acetaminophen [Percocet] 5-325 mg tablet 1 tab PO Q6H PRN (Reason: pain) 5 Days Qty: 20 0RF omeprazole 20 mg capsule,delayed release(DR/EC) 20 mg PO BID gabapentin 400 mg capsule 800 mg PO DAILY levetiracetam [Keppra] 1,000 mg tablet 1,000 mg PO Q12H tizanidine 2 mg capsule 2 mg PO TID PRN (Reason: muscle spasticity) Qty: 14 0RF oxycodone-acetaminophen 5-325 mg tablet 1 tab PO Q6H PRN PRN (Reason: Pain) 3 Days Qty: 10 0RF oxycodone-acetaminophen 5-325 mg tablet 1 tab PO Q6H PRN PRN (Reason: Pain) 3 Days Qty: 12 0RF Primary Care Provider: Amandeep Loredo Referrals: Amandeep Loredo DO [Primary Care Provider] - 1 Week if not improving Activity Restrictions/Additional Instructions: Motrin for pain and inflammation. Percocet for severe pain. Skelaxin is a muscle relaxant 1 pill 3 times a day till gone. Hot shower, warm bath, hot tub, massage for the muscle spasm. Follow-up with your doctor if not improving for further evaluation. Print Language: Serbian Disposition Disposition: Home, Self Care What to do if you have Problems For any increased pain, shortness of breath, bleeding, nausea or vomiting, chestpain, or any unexpected problems, contact your Primary Care Provider. Call [facility] ([phone]) or report to the closest Emergency Room. Call 911 if necessary. 03/14/25 [id number] <Electronically signed by Zain Carvajal MD> Cosigner Signature (if applicable): CC: Dr. Amandeep Loredo DO ~ Signed [facility] Work Phone: [phone] 828-472405-15-2025 Radiology Diagnostic study note [facility] Imaging Services [address] [place] [address] Wrist min 3 Views MR#: [id number] Acct: [id number] Name: ORTIZ JACOBS Rep #: [id number] : 1970 F 54 From: Lizabeth Guerrero MD PCP: Dr. Amandeep Loredo DO Status: RE G ER Study:Wrist min 3 Views Date of Exam: Exam# [id number] Ordering Dr: Jhon Flynn DO PROCEDURE: WRIST MIN 3 VIEWS, 01/05/2025 REASON FOR EXAM: FALL TECHNIQUE: AP, lateral, and oblique views of the LEFT wrist were obtained COMPARISON: 05/11/2024 FINDINGS: AP view is slightly oblique in positioning. Fracture/dislocation: None visible. Joint space(s): Relatively preserved. Soft tissues: Unremarkable. Foreign bodies: None visible. Bone mineralization: Suspect demineralization. Other: None. RAD/Wrist min 3 Views IMPRESSION: Suspected demineralization without visible acute displaced fracture. Reading Location: [id number] CC: Dr. Franki Flynn DO; Dr. Amandeep Loredo DO ~ Radio Station Engineer: Signed [facility]05-15-2025 Radiology Diagnostic study note [facility] Imaging Services [address] [place], [place] [address] HIP, UNI W/ Pelvis 2-3 Views MR#: [id number] Acct: [id number] Name: ORTIZ JACOBS Rep #: [id number] : 1970 F 54 From: Lizabeth Guerrero MD PCP: Dr. Amandeep Loredo DO Status: RE G ER Study:HIP, UNI W/ Pelvis 2-3 Views Date of Ex am: 01/05/25 Exam# [id number] Ordering Dr: Jhon Flynn DO PROCEDURE: HIP, UNI W/ PELVIS 2-3 VIEWS, 01/05/2025 REASON FOR EXAM: FALL TECHNIQUE: An AP view of the pelvis and an AP view of the LEFT hip were obtained COMPARISON: None FINDINGS: Fracture/dislocation: None visible. Joint space(s): Relatively preserved. Soft tissues: Unremarkable. Foreign bodies: None visible. Bone mineralization: Suspect demineralization. Other: Similar electronic device on the LEFT. Partially imaged lumbar spinal fusion and laminectomy. Similar presumed pelvic phleboliths.. RAD/HIP, UNI W/ Pelvis 2-3 Views IMPRESSION: 1. Suspected demineralization without visible acute displaced fracture. If there is persistent concern or if the patient is unable to bear weight, recommend CT. 2. Additional description as above. Reading Location: [id number] CC: Dr. Franki Flynn, DO; Dr. Amandeep Loredo, DO ~ Radio Station Engineer: Signed [facility]06-08-2024 Telephone encounter Note* Telephone Encounter - Cheri Kuhn RN - 01/30/2024 1:18 PM EDT Situation: Patient calling d/t having many blisters to arm, she thinks this is d/t dressing on her arm (from splint). She was told to put hydrocortisone ointment on it per the Ortho office. Background: Patient's chart verified by birthday, name and phone number, patient insistent that shewas seen at for this after falling and breaking her arm, but per her chart she has not been seenat since 2016. 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 Recommendation: Triage recommends pt be seen within 24 hours, patient does not want to go to ER. She may go to express care. Reason for Disposition [1] Localized rash is very painful AND [2] no fever Answer Assessment - Initial Assessment Questions 1. APPEARANCE of RASH: Describe the rash. 50 blisters. Redness. 2. LOCATION: Where is the rash located? Left arm. 3. NUMBER: How many spots are there? 50. 4. SIZE: How big are the spots? (Inches, centimeters or compare to size of a coin) Very small blisters, but, some are larger. 5. ONSET: When did the rash start? Thursday morning. 6. ITCHING: Does the rash itch? If Yes, ask: How bad is the itch? (Scale 0- 10; or none, mild, moderate, severe) Yes, 7-8/10. 7. PAIN: Does the rash hurt? If Yes, ask: How bad is the pain? (Scale 0-10; or none, mild, moderate, severe) - NONE (0): no pain - MILD (1-3): doesn't interfere with normal activities - MODERATE (4-7): interferes with normal activities or awakens from sleep - SEVERE (8-10): excruciating pain, unable to do any normal activities 04/02. 8. OTHER SYMPTOMS: Do you have any other symptoms? (e.g., fever) No. 9. : Is there any chance you are ? When was your last menstrual period? N/A Protocols used: Rash or Redness - Puwnqeykm-E-PO [id number] Miscellaneous Notes* Telephone Encounter - Cheri Kuhn RN - 01/30/2024 1:18 PM EDT Situation: Patient calling d/t having many blisters to arm, she thinks this is d/t dressing on her arm (from splint). She was told to put hydrocortisone ointment on it per the Ortho office. Background: Patient's chart verified by birthday, name and phone number, patient insistent that shewas seen at for this after falling and breaking her arm, but per her chart she has not been seenat since 2016. 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 Recommendation: Triage recommends pt be seen within 24 hours, patient does not want to go to ER. She may go to express care. Reason for Disposition [1] Localized rash is very painful AND [2] no fever Answer Assessment - Initial Assessment Questions 1. APPEARANCE of RASH: Describe the rash. 50 blisters. Redness. 2. LOCATION: Where is the rash located? Left arm. 3. NUMBER: How many spots are there? 50. 4. SIZE: How big are the spots? (Inches, centimeters or compare to size of a coin) Very small blisters, but, some are larger. 5. ONSET: When did the rash start? Thursday morning. 6. ITCHING: Does the rash itch? If Yes, ask: How bad is the itch? (Scale 0- 10; or none, mild, moderate, severe) Yes, -04/02. 7. PAIN: Does the rash hurt? If Yes, ask: How bad is the pain? (Scale 0-10; or none, mild, moderate, severe) - NONE (0): no pain - MILD (1-3): doesn't interfere with normal activities - MODERATE (4-7): interferes with normal activities or awakens from sleep - SEVERE (8-10): excruciating pain, unable to do any normal activities 8. 8. OTHER SYMPTOMS: Do you have any other symptoms? (e.g., fever) No. 9. : Is there any chance you are ? When was your last menstrual period? N/A Protocols used: Rash or Redness - [id number] documented in this [id number] Discharge summary Author Narciso Baron [facility] October 07, 2023 10:12pm Note Date/Time October 07, 2023 7:19pm [facility] Medical Records Department [address] [place] [address] Emergency Department Summary 10/07/23 MR#: [id number] Acct: [id number] Name: ORTIZ JACOBS Rep #:[id number] : 1970 53 From: Narciso Hawk PCP: Dr. Ari Sotomayor DO Status:REG ER Location: ED HPI History of Present Illness Chief Complaint: Back [facility] Medical History (Updated 10/07/23 @ 22:[address] Narciso Baron, ) Asthma Brain aneurysm Cardiac arrest Chronic pain COVID-19 Former smoker GERD (gastroesophageal reflux disease) Kidney disease Kidney stones Migraines NSTEMI (non-ST elevated myocardial infarction) Rheumatoid arthritis Seizures Sleep apnea Home Medications oczybgaj-zpqp-zopd 8 mg-folic 400 mcg-K 50 mcg-lutein 300 mcg tablet 1 tab PO DAILY supplement 03/21/19 [History Last Taken 07/26/21] omeprazole 20 mg capsule,delayed release 20 mg PO BID GERD 05/31/19 [History Last Taken 07/26/21] levetiracetam 750 mg tablet 1,500 mg PO TID seizures 12/04/19 [History Last Taken 07/26/21] fluticasone propionate 50 mcg/actuation nasal spray,suspension (Flonase Allergy Relief) 1 spray intranasal DAILY 08/24/22 [History Last Taken Unknown] oxycodone-acetaminophen 5 mg-325 mg tablet 1 tab PO Q6H PRN PRN Pain 3 days #10 TABLETS 08/24/22 [Rx Last Taken Unknown] levofloxacin 750 mg tablet 750 mg PO DAILY #6 tabs 09/23/22 [Rx Last Taken Unknown] oxycodone-acetaminophen 5 mg-325 mg tablet (Percocet) 1 tab PO Q6H PRN pain 3 days #12 tabs 09/23/22 [Rx Last Taken Unknown] lidocaine 5 % topical ointment 1 applic topical TID PRN skin irritation #50 grams 11/17/22 [Rx Last Taken Unknown] prednisone 20 mg tablet 20 mg PO DAILY 5 days #5 tabs 11/17/22 [Rx Last Taken Unknown] prednisone 20 mg tablet 40 mg (2 x 20 mg) PO DAILY 4 days #8 tabs 02/15/23 [Rx Last Taken Unknown] cyclobenzaprine 5 mg tablet 5 mg PO TID PRN muscle spasm #20 tabs 10/07/23 [Rx Last Taken Unknown] Allergy/AdvReac Type Severity Reaction Status Date / Time Penicillins Allergy Anaphylaxis Verified 10/07/23 19:10 propoxyphene napsylate Allergy Rash Verified 10/07/23 19:10 [From Darvocet-N 100] adhesive tape [plastic tape] AdvReac Other Verified 10/07/23 19:10 hydrocodone bitartrate AdvReac Itching Verified 10/07/23 19:10 [From Vicodin] Iodinated Contrast Media AdvReac Vomiting Verified 10/07/23 19:10 [contrast dye - iodinated] venom-honey bee AdvReac Chest Verified 10/07/23 19:10 [bee venom (honey bee)] tightness Surgical History History of appendectomy History of cholecystectomy Social History household members: none Smoking Status: Former smoker substance use type: does not use EXAM Physical Exam Const Vital Signs: 10/07/23 19:11 10/07/23 19:14 10/07/23 21:10 Temperature 96.1 F L 96.1 F L Temperature Source Temporal Temporal Pulse Rate 95 95 65 Respiratory Rate 20 H 20 H 12 Blood Pressure 146/98 H 146/98 H 132/78 H Blood Pressure Mean 114 114 96 Pulse Ox 98 Oxygen Delivery Method Room Air 10/07/23 22:09 Temperature 96.5 F L Temperature Source Pulse Rate 78 Respiratory Rate 18 Blood Pressure 140/84 H Blood Pressure Mean 102 Pulse Ox 99 Oxygen Delivery Method [facility] [place] Medical decision making narrative: HISTORY OF PRESENT ILLNESS: 53-year-old female presents with concern for back pain. Patient states she is history of seizures. She suffered a seizure today that caused her to injure isak. Patient reports a history provided by her significant other was not in the room at the time of her initial interview. No seizure was her usual seizurelasted for approximately 2 minutes. Did not have multiple seizures without return to baseline, seizures not last long and 5 minutes. Patient denies any saddle anesthesia, urinary retention, bowel or bladder incontinence, lower extremity weakness, fever or IV drug use, no recent spinal manipulation or surgery, no recent urinary catheterization. REVIEW OF SYSTEMS: Pertinent positives: Seizure, back pain Pertinent negatives: Head trauma, focal deficit PHYSICAL EXAM: Nursing triage notes reviewed, Vital signs reviewed Constitutional: please see mdm HENT: MMM Eyes: Pupils equal round and reactive to light, Extraocular muscles intact Neck: No stridor, no JVD, full neck ROM Lungs: Clear to auscultation, No wheezing or rales. No increased work of breathing, no conversational dyspnea, no accessory muscle use, no nasal flaring. No respiratory distress noted Heart: Regular rate and rhythm, No murmurs, No rubs and No gallops, 2+ distal pulses (radial, femoral, posterior tibial) in all extremities Abdomen: Soft, there is no tenderness, rigidity, rebound or guarding, no obviousperitoneal signs, no palpable pulsatile abdominal masses, no auscultated abdominal bruit : No CVAT Extremities: No edema Back: No midline step-offs or deformities noted Neuro: No focal neurological deficits, cranial nerves II through XII intact, 5/5strength in all extremities. Intact sensation to light touch in all extremities,2+ reflexes bilateral patella tendons. Normal gait. No ataxia. Intact sensation L1- S1 dermatomal distributions. Intact 5/5 strength in hip flexion (T12-L3). Knee extension (L2-L4). Ankle dorsiflexion (L4-L5). Ankle plantar flexion (S1). Great toe extension (L5). 2+ patellar and Achilles DTRs. Skin: Lumbar incision scar clean dry intact MEDICAL DECISION MAKING: Chief Complaint: Back pain External records reviewed: CT scan lumbar spine from 2022 shows Stable examination without acute bony abnormality or change in the appearance of the distal lumbar fusion with posterior hardware. Factors affecting care: C seizure disorder on Keppra, CVA VA, brain aneurysm, paroxysmal A-fib, gastroparesis, MDM Narrative: Patient was hemodynamically stable, afebrile, nontoxic-appearing. Primary secondary trauma surveys concerning for back injury and left hip injury. Given the patient's report of headache and history of brain aneurysm I did obtain a CT scan of the brain. Cannot do a contrasted study secondary to reported contrast allergy I considered the following differential diagnosis: Bony injury to the back, hip,hyponatremia, noncompliance ALL IMAGES (IF OBTAINED) HAVE BEEN PERSONALLY REVIEWED AND INTERPRETED BY MYSELF. EKG with normal sinus rhythm, normal axis, normal normals, no STEMI CBC without leukocytosis, severe anemia, no thrombocytopenia. CMP without evidence of acute kidney injury, significant electrolyte abnormality, anion gap, no evidence hepatobiliary pathology. CT scan lumbar spine shows no evidence of fracture dislocation X-ray left hip was read and reviewed by myself shows no evidence of fracture dislocation The synthesis of the patient history, physical exam, labs images suggest breakthrough seizure, back strain, left hip strain. No evidence of acute traumatic injury or intracranial injury. Patient was given strict return precautions and follow-up with her neurologist and return if symptoms change or worsen. The patient and/or family, caregivers express understanding. The patient and/orfamily, caregivers agrees with the plan. Shared decision making: I will have a discussion with the patient and or visitors regarding risk/benefits of further testing or admission. They will be made aware of of the risk/benefits inherent in this decision they will be given the opportunity to voice understanding. Total critical care time today provided was at least 0 minutes. This excludes separately billable procedures. Critical care time (if documented) is secondary to the patient having high probability of clinically significant/life threatening deterioration in the patient's condition which required my urgent intervention. Impression: 1. Back contusion 2. Left hip contusion 3. History of seizures 4. Breakthrough seizures Dispo: Discharge This note was generated with [employer] dictation software. It may contain incorrectwords, spelling, and punctuation that were not noted in review of the chart prior to signing. Lab Data Labs: Laboratory Results - last 24 hr 10/07/23 20:05 WBC 7.6 RBC 5.04 Hgb 15.7 H Hct 48.0 H MCV 95.2 MCH 31.2 MCHC 32.7 RDW Std Deviation 45.2 H RDW Coeff of Bere 12.9 Plt Count 301 MPV 10.0 Immature Gran % (Auto) 0.400 Neut % (Auto) 53.8 Lymph % (Auto) 37.3 Republic % (Auto) 6.3 Eos % (Auto) 1.3 Baso % (Auto) 0.9 Absolute Neuts (auto) 4.1 Absolute Lymphs (auto) 2.85 Nucleated RBC % 0 Differential Comment SCANNED Sodium 142 Potassium 3.8 Chloride 111 H Carbon Dioxide 25.0 Anion Gap 6 BUN 7 Creatinine 0.67 Estim Creat Clear Calc 106.59 Est GFR (MDRD) Af Amer 118 Est GFR (MDRD) Non-Af 98 BUN/Creatinine Ratio 10.5 Glucose 114 H Calcium 9.0 Total Bilirubin 0.10 L AST 15 ALT 16 Alkaline Phosphatase 183 H Total Protein 7.1 Albumin 3.8 Globulin 3.3 Albumin/Globulin Ratio 1.2 Radiography Diagnostic Testing: Clinical Impression(s) from Imaging Studies Brain CT 10/07/23 20:15 IMPRESSION: No acute abnormality status post aneurysm clipping. Electronically Signed: Kunal Amezquita MD at 20:52 EST , Hip/Pelvis X-Ray 10/07/23 20:15 IMPRESSION: No evidence for acute hip or pelvic fracture. Electronically Signed: Kunal Amezquita MD at 20:51 EST , Lumbar Spine CT 10/07/23 20:15 IMPRESSION: Postsurgical changes at L3-4, L4-5 and L5-S1.. No acute fracture or other significant bony pathology Electronically Signed: Kunal Amezquita MD at 21:20 EST , Discharge Plan Triage Chief Complaint: Back ED Provider: Narciso Baron Dx/Rx/DC Orders Clinical Impression: Back strain Instructions: Understanding Lumbosacral Strain Prescriptions: New cyclobenzaprine 5 mg tablet 5 mg PO TID PRN (Reason: muscle spasm) Qty: 20 0RF No Action jvnqiivy-cac-zxmu-FA-vit K-lut 1 EACH tablet 1 tab PO DAILY omeprazole 20 MG capsule,delayed release(DR/EC) 20 mg PO BID levetiracetam 750 MG tablet 1,500 mg PO TID fluticasone propionate [Flonase Allergy Relief] 50 mcg/actuation [place],Suspension 1 spray INTRANASAL DAILY Rx Instructions: administer into each nostril oxycodone-acetaminophen 5-325 mg tablet 1 tab PO Q6H PRN PRN (Reason: Pain) 3 Days Qty: 10 0RF oxycodone-acetaminophen [Percocet] 5-325 mg tablet 1 tab PO Q6H PRN (Reason: pain) 3 Days Qty: 12 0RF levofloxacin 750 mg tablet 750 mg PO DAILY Qty: 6 0RF lidocaine 5 % ointment 1 applic topical TID PRN (Reason: skin irritation) Qty: 50 1RF prednisone 20 mg tablet 20 mg PO DAILY 5 Days Qty: 5 0RF prednisone 20 mg tablet 40 mg PO DAILY 4 Days Qty: 8 0RF Primary Care Provider: Ari Sotomayor Referrals: Ari Sotomayor DO [Primary Care Provider] - What to do if you have Problems For any increased pain, shortness of breath, bleeding, nausea or vomiting, chestpain, or any unexpected problems, contact your Primary Care Provider. Call [facility] ([phone]) or report to the closest Emergency Room. Call 911 if necessary. 10/07/232211 <Electronically signed by Narciso Baron DO> Cosigner Signature (if applicable): CC: Dr. Ari Sotomayor DO ~ Signed [facility] Work Phone: [phone]) 789-807701-09-2024 Telephone encounter Note* Telephone Encounter - Alva Blas RN - 09/01/2023 8:46 AM EST S: Patient spoke with [facility] nurse regarding grandson has thrush and had him for a few days. B: Onset of symptoms for 3-4 days. A: Tongue is coated, using Listerine, brushing tongues and no relief, using peroxide , and belly button is red and irritated. Able to swallow and having sore mouth. R: Appointment scheduled, address given to the patient, instructed to bring photo ID, insurance info and medication list to the appointment. Patient understands care advice. No further needs at this time. Patient instructed to call back with new or worsening symptoms. Reason for Disposition White patches that stick to tongue or inner cheek, which can be wiped off Protocols used: Mouth [id number] [facility] [id number] Miscellaneous Notes* Telephone Encounter - Alva Blas RN - 09/01/2023 8:46 AM EST S: Patient spoke with [facility] nurse regarding grandson has thrush and had him for a few days. B: Onset of symptoms for 3-4 days. A: Tongue is coated, using Listerine, brushing tongues and no relief, using peroxide , and belly button is red and irritated. Able to swallow and having sore mouth. R: Appointment scheduled, address given to the patient, instructed to bring photo ID, insurance info and medication list to the appointment. Patient understands care advice. No further needs at this time. Patient instructed to call back with new or worsening symptoms. Reason for Disposition White patches that stick to tongue or inner cheek, which can be wiped off Protocols used: Mouth Dhnhhuof-GCMRF-FQ documented in this [facility]12-04-2023 History of Present illness Narrative* Amandeep Loredo DO - 07/27/2023 4:30 PM EST Images from the original note were not included. [facility] [address] [facility] [id number] Visit type: Established Patient Reason for Visit: Mass (On stomach getting bigger and now painful) Assessment / Plan: Berenice was seen today for mass. Diagnoses and all orders for this visit: Chronic superficial gastritis without bleeding (Primary) Seizure (HCC) Other orders - omeprazole (PriLOSEC) [address] capsule; Take 1 capsule (20 mg) by mouth 2 times daily. -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 supplements as they may interact withyour home medications. What How Much When Instructions Last Dose New cyclobenzaprine (cyclobenzaprine 10 mg oral tablet) 1 tab(s) by mouth Three (3) times a day Duration: 7 Days Printed Prescription Unchanged albuterol Unchanged fluticasone nasal (Flonase 50 mcg/ inh nasal spray) 2 spray(s) each nostril Two (2) times a day Unchanged omeprazole (Prilosec 40 mg oral delayed release capsule) 1 cap by mouth Every day Unchanged oxyCODONE (oxyCODONE 20 mg oral tablet, ( extended release )) 1 tab(s) by mouth Every 12 hours Unchanged valproic acid (valproic acid 500 mg oral delayed release capsule (NF)) 2 tab(s) Two (2) times a day Please take this list to your next doctor s visit. Bring all medications you take, including over the counter medications, herbals and other supplements with you to your doctor s visit. Patients and families are reminded to discard old lists and to update any records with all medication providers or retail pharmacies. [employer] Neck Sprain or Strain A sudden force that causes turning or bending of the neck can cause sprain or strain. An example would be the force from a car accident. This can stretch or tear muscles called a strain. It can also stretch or tear ligaments called a sprain. Either of these can cause neck pain. Sometimes neck pain occurs after a simple awkward movement. In either case, muscle spasm is commonly present and contributes to the pain. Unless you had a forceful physical injury (for example, a car accident or fall), X-rays are often not ordered for the initial evaluation of neck pain. If pain continues and does not respond to medical treatment, X-rays and other tests may be done later. Home care You may feel more soreness and spasm the first few days after the injury. Rest until symptoms startto improve. When lying down, use a comfortable pillow or a rolled towel that supports the head and keeps the spine in a neutral position. The position of the head should not be tilted forward or backward. Apply an ice pack over the injured area for 15 to 20 minutes every 3 to 6 hours. Do this for the first 24 to 48 hours. You can make an ice pack by filling a plastic bag that seals at the top with icecubes and then wrapping it with a thin towel. After 48 hours, apply heat (warm shower or warm bath)for 15 to 20 minutes several times a day, or alternate ice and heat. You may use dyqp-rdh-fsjjrvj pain medicine to control pain, unless another pain medicine was prescribed. If you have chronic liver or kidney disease or ever had a stomach ulcer or gastrointestinal bleeding, talk with your healthcare provider before using these medicines. If a soft cervical collar was prescribed, only ear it for periods of increased pain. It should not be worn for more than 3 hours a day, or for longer than 1 to 2 weeks. Follow-up care Follow up with your healthcare provider, or as directed. Physical therapy may be needed. Sometimes fractures don t show up on the first X-ray. Bruises and sprains can sometimes hurt as much as a fracture. These injuries can take time to heal completely. If your symptoms don t improve or they get worse, talk with your healthcare provider. You may need a repeat X-ray or other tests. If X-rays were taken, you will be told of any new findings that may affect your care. Call 911 Call 911 if you have: Neck swelling, difficulty or painful swallowing Trouble breathing Chest pain When to seek medical advice Call your healthcare provider right away if any of these occur: Pain becomes worse or spreads into your arms or legs Weakness or numbness in one or both arms or legs [phone] [employer] [address] [place] [address]. All rights reserved. This information is not intended as a substitute for professional medical care. Always follow yourhealthcare professional's instructions. Head Injury (Adult) You have a head injury. It does not appear serious at this time. But symptoms of a more serious problem, such as a mild brain injury (concussion) or bruising or bleeding in the brain, may appear later. For this reason, you or someone caring for you will need to watch for the symptoms listed below. Once you re home, also be sure to follow any care instructions you re given. Home care Watch for the following symptoms Seek emergency medical care if you have any of these symptoms over the next hours to days: Headache Nausea or vomiting Dizziness Sensitivity to light or noise Unusual sleepiness or grogginess Trouble falling asleep Personality changes Vision changes Memory loss Confusion Trouble walking or clumsiness Loss of consciousness (even for a short time) Inability to be awakened Stiff neck Weakness or numbness in any part of the body Seizures General care If you were prescribed medicines for pain, use them as directed. Note: Don t take other medicines for pain without talking to your provider first. To help reduce swelling and pain, apply a cold source to the injured area for up to 20 minutes at atime. Do this as often as directed. Use a cold pack or bag of ice wrapped in a thin towel. Never apply a cold source directly to the skin. If you have cuts or scrapes as a result of your head injury, care for them as directed. For the next 24 hours (or longer, if instructed): oDon t drink alcohol or use sedatives or other medicines that make you sleepy. oDon t drive or operate machinery. oDon t do anything strenuous, such as heavy lifting or straining. oLimit tasks that require concentration. This includes reading, using a smartphone or computer, watching TV, and playing video games. oDon t return to sports or other activities that could result in another head injury. Follow-up care Follow up with your healthcare provider, or as directed. If imaging tests were done, they will be reviewed by a doctor. You will be told the results and any new findings that may affect your care. When to seek medical advice Call your healthcare provider right away if any of these occur: Pain doesn t get better or worsens New or increased swelling or bruising Fever of 100.4 F (38 C) or higher, or as directed by your provider Increased redness, warmth, drainage, or bleeding from the injured area Fluid drainage or bleeding from the nose or ears Any depression or bony abnormality in the injured area Persistent confusion or lethargy Bruising behind the ears or bruising around the eyes [phone] [employer] [address] [place] [address]. All rights reserved. This information is not intended as a substitute for professional medical care. Always follow yourhealthcare professional's instructions. Shoulder Sprain A sprain is a stretching or tearing of the ligaments that hold a joint together. A sprain may take up to 8 weeks to fully heal, depending on how severe it is. Moderate to severe shoulder sprains are treated with a sling or shoulder immobilizer. Minor sprains can be treated without any special support. Home care The following guidelines will help you care for your injury at home: If a sling was given to you, leave it in place for the time advised by your healthcare provider. Ifyou aren t sure how long to wear it, ask for advice. If the sling becomes loose, adjust it so that your forearm is level with the ground. Your shoulder should feel well supported. Put an ice pack on the injured area for 20 minutes every 1 to 2 hours the first day. You can make your own ice pack by putting ice cubes in a plastic bag. A bag of frozen peas or something similar works well too. Wrap the bag in a thin towel. Continue with ice packs 3 to 4 times a day for the next 2 to 3 days. Then use the pack as needed to ease pain and swelling. You may use acetaminophen or ibuprofen to control pain, unless another pain medicine was prescribed. If you have chronic liver or kidney disease, talk with your healthcare provider before using thesemedicines. Also talk with your provider if you ve had a stomach ulcer or gastrointestinal bleeding. Shoulder joints become stiff if left in a sling for too long. You should start range of motion exercises about 7 to 10 days after the injury. Talk with your provider to find out what type of exercises to do and how soon to start. Follow-up care Follow up with your healthcare provider, or as advised. Any X-rays you had today don t show any broken bones, breaks, or fractures. Sometimes fractures dont show up on the first X-ray. Bruises and sprains can sometimes hurt as much as a fracture. These injuries can take time to heal completely. If your symptoms don t improve or they get worse, talk with your provider. You may need a repeat X-ray or other treatments. When to seek medical advice Call your healthcare provider right away if any of these occur: Shoulder pain or swelling in your arm that gets worse Fingers become cold, blue, numb, or tingly Large amount of bruising of the shoulder or upper arm Fever or chills [id number] [employer] [address] [place] [address]. All rights reserved. This information is not intended as a substitute for professional medical care. Always follow yourhealthcare professional's instructions. Additional Information VACCINATE! IT SAVES LIVES! Members of the community who have not yet received the COVID-19 vaccine and would like to receive it can visit one of [facility] vaccine clinics. There are many vaccine clinic locations within the [facility]. For locations and available times, please visit www.gettheshot.coronavirus.[place].gov/. It is important to note that some COVID mobile vaccine clinics are held outdoors and may be canceled in rainy or stormy conditions. To learn more about pediatric vaccinations (ages 5-11), we invite you to visit the [facility] webpage. https://www.[email or web address].org/pages/9275-Gbltk-Ksyvrluzsuv-Lrztmjsihv-Eaaxh-Kpt stions.htmlTo learn more about the COVID-19 vaccine, we invite you to visit the CDC website for a list of frequently asked questions. https://www.cdc.gov/coronavirus/2019-ncov/vaccines/faq.html [facility] Patient Portal Access Instructions: Stay connected with your healthcare team and access your personal medical information anytime with the [facility] Patient Portal. If you would like a full copy of your medical records please contact the [facility] Medical Records Department Thursday through Thursday between 8a.m. and 4:30p.m. Please follow the directions below to access the portal: 1.Access the email account you provided upon registration to the [facility].2.Look for an invitation email from [facility].3.Open the email and access the invitation link: Accept Invitation to [facility]4.Fill in the required matute to create your account. Sign into [email or web address] with your username and password that you created in the above steps to stay up to date. You can then view a summary of results, a summary of your visits, and the ability to download your summaries to your computer or send the information securely to a physician. Remember that your healthcare information is confidential, so carefully consider who you will allow to register on the [facility] Patient Portal for access to your information. You can also access the [facility] Patient Portal on the [employer] gita. Simply click on Health Records under [employer] and then click on the [employer] logo. HOW TO SAFELY DISPOSE OF PRESCRIPTION MEDICATIONS Please use one of the following methods to safely dispose of your unused medications. 1.Use a drug disposal kit: the drug disposal pouch allows you to safely discard your old and unuseddrugs. Ask your nurse to give you one when you are discharged.2.Visit a local take-back location: Many local pharmacies and police departments have programs that collect old and unwanted prescriptiondrugs. Call your local pharmacy or go to http://Lastline.[employer]/0W3Wm2h to find one close to you.3.Make use of household items: Use cat litter or old coffee grounds to dispose medications if other options arenot available. Mix your drugs with these household products, seal them in an airtight container andthrow it into the garbage. Call [facility]: [phone] to be sure your drugs can be disposed of in this way. Some medicines may require a different approach.4.Never flush your medications down the toilet. IF YOU HAVE BEEN PRESCRIBED AN OPIOIDS FOR PAIN If you have been prescribed an opioid (such as hydrocodone, oxycodone or morphine), it is critical to understand the possible side effects and risks of opioid pain medications. Even when taken as directed, opioids can have several side effects including: Tolerance, meaning you might need to take more of a medication for the same pain relief. Nausea, vomiting and/or constipation. Sleepiness, dizziness, dry mouth, confusion, depression or itching. Physical dependence, meaning you have withdrawal symptoms when a medication is stopped ? this can develop within a few days. KNOW YOUR RESPONSIBILITIES It is important to know exactly how much and how often to take the opioid pain medications you are prescribed. Never take opioids in higher amounts or more often than prescribed. Do not combine opioids with alcohol or other drugs that cause drowsiness, such as benzodiazepines, also known as benzos,including diazepam and alprazolam, muscle relaxants or sleep aids. Never sell or share prescriptionopioids. This is illegal. Store opioids in a secure place and out of reach of others (including children, family, friends and visitors). The last page(s) of this document has been signed and retained as a CHART COPY Signatures Patient Education Materials Neck Sprain or Strain Head Injury (Adult) Shoulder Sprain Medication Leaflets My discharge plan and instructions have been reviewed and explained to me and MARLON Richter LUGENA Sunderstand my current condition and have read and understand these discharge instructions. I have received a written copy of the plan/instructions. If I have questions, I am aware that I should contact my doctor. 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 HISTORY: ORDERING SYSTEM PROVIDED HISTORY: Reason for Exam: pain FINDINGS: No fracture or dislocation. Partially imaged ACDF hardware. IMPRESSION: No fracture or dislocation. Interpreted by: Alejandro Mercer Preliminary Report By: Alejandro Mercer Electronically signed By Alejandro Mercer Dictated Date: 03/06/2023 12:34:54 AM Prelim Date: 03/06/2023 12:35:36 AM Sign Date: 03/06/2023 12:35:36 AM Ordering Provider: [address]14-2023 Note ORIGINAL EXAMINATION: 2 XRAY VIEWS OF THE RIGHT CLAVICLE 03/06/2023 12:32 am COMPARISON: None. HISTORY: ORDERING SYSTEM PROVIDED HISTORY: Reason for Exam: pain FINDINGS: No fracture. Partially imaged ACDF hardware. IMPRESSION: No fracture Interpreted by: Alejandro Mercer Preliminary Report By: Alejandro Mercer Electronically signed By Alejandro Mercer Dictated Date: 03/06/2023 12:33:52 AM Prelim Date: 03/06/2023 12:34:46 AM Sign Date: 03/06/2023 12:34:46 AM Ordering Provider: [address]14-2023 Note ORIGINAL EXAMINATION: CT OF THE CERVICAL SPINE WITHOUT CONTRAST 03/06/2023 12:16 am TECHNIQUE: CT of the cervical spine was performed without the administration of intravenous contrast. Multiplanar reformatted images are provided for review. Automated exposure control, iterative reconstruction, and/or weight based adjustment of the mA/kV was utilized to reduce the radiation dose to as low as reasonably achievable. COMPARISON: None. HISTORY: ORDERING SYSTEM PROVIDED HISTORY: Reason for Exam: pain; trauma patient FINDINGS: BONES/ALIGNMENT: Reversal of the normal cervical lordosis due to positioning and degenerative changes. There is no acute fracture or traumatic malalignment. No interspinous widening, jumped, or perched facets. The patient is status post ACDF at C6-C7 with bony fusion at this level. No evidence of hardware failure. DEGENERATIVE CHANGES: Mild multilevel degenerative changes including endplate osteophyte formation and disc space height loss most pronounced at C5. Varying levels of foraminal stenosis. Facet and uncovertebral arthropathy. SOFT TISSUES: There is no prevertebral soft tissue swelling. Biapical emphysema. Dependent secretions within the trachea. IMPRESSION: No acute fracture or traumatic malalignment. I have personally reviewed the images of this examination and agree with the resident's findings and interpretation. Interpreted by: Alejandro Mercer Preliminary Report By: Beverly Miller Electronically signed By Alejandro Mercer Dictated Date: 03/06/2023 12:17:36 AM Prelim Date: 03/06/2023 12:28:40 AM Sign Date: 03/06/2023 12:33:41 AM Ordering Provider: [address]14-2023 Note ORIGINAL EXAMINATION: 4 XRAY VIEWS OF THE RIGHT SHOULDER 03/06/2023 12:32 am COMPARISON: None. HISTORY: ORDERING SYSTEM PROVIDED HISTORY: Reason for Exam: pain FINDINGS: No fracture or dislocation. Partially imaged ACDF hardware. IMPRESSION: No fracture or dislocation. Interpreted by: Alejandro Mercer Preliminary Report By: Alejandro Mercer Electronically signed By Alejandro Mercer Dictated Date: 03/06/2023 12:34:54 AM Prelim Date: 03/06/2023 12:35:36 AM Sign Date: 03/06/2023 12:35:36 AM Ordering Provider: [address]14-2023 Note ORIGINAL EXAMINATION: 2 XRAY VIEWS OF THE RIGHT CLAVICLE 03/06/2023 12:32 am COMPARISON: None. HISTORY: ORDERING SYSTEM PROVIDED HISTORY: Reason for Exam: pain FINDINGS: No fracture. Partially imaged ACDF hardware. IMPRESSION: No fracture Interpreted by: Alejandro Mercer Preliminary Report By: Alejandro Mercer Electronically signed By Alejandro Mercer Dictated Date: 03/06/2023 12:33:52 AM Prelim Date: 03/06/2023 12:34:46 AM Sign Date: 03/06/2023 12:34:46 AM Ordering Provider: [address]14-2023 Note ORIGINAL EXAMINATION: CT OF THE HEAD WITHOUT CONTRAST 03/06/2023 12:06 am TECHNIQUE: CT of the head was performed without the administration of intravenous contrast. Automated exposure control, iterative reconstruction, and/or weight based adjustment of the mA/kV was utilized to reduce the radiation dose to as low as reasonably achievable. COMPARISON: CT head December 12, 2011 HISTORY: ORDERING SYSTEM PROVIDED HISTORY: Reason for Exam: pain; trauma patient FINDINGS: BRAIN/VENTRICLES: There is no acute intracranial hemorrhage, mass effect or midline shift. No abnormal extra-axial fluid collection. The sanders-white differentiation is maintained without evidence of an acute infarct. There is no evidence of hydrocephalus. Embolization coil in the distal basilar artery. ORBITS: The visualized portion of the orbits demonstrate no acute abnormality. SINUSES: The visualized paranasal sinuses and mastoid air cells demonstrate no acute abnormality. SOFT TISSUES/SKULL: No acute abnormality of the visualized skull or soft tissues. IMPRESSION: No acute intracranial hemorrhage. Interpreted by: Alejandro Mercer Preliminary Report By: Alejandro Mercer Electronically signed By Alejandro Mercer Dictated Date: 03/06/2023 12:12:16 AM Prelim Date: 03/06/2023 12:14:25 AM Sign Date: 03/06/2023 12:14:25 AM Ordering Provider: [address]14-2023 Note ORIGINAL EXAMINATION: CT OF THE CERVICAL SPINE WITHOUT CONTRAST 03/06/2023 12:16 am TECHNIQUE: CT of the cervical spine was performed without the administration of intravenous contrast. Multiplanar reformatted images are provided for review. Automated exposure control, iterative reconstruction, and/or weight based adjustment of the mA/kV was utilized to reduce the radiation dose to as low as reasonably achievable. COMPARISON: None. HISTORY: ORDERING SYSTEM PROVIDED HISTORY: Reason for Exam: pain; trauma patient FINDINGS: BONES/ALIGNMENT: Reversal of the normal cervical lordosis due to positioning and degenerative changes. There is no acute fracture or traumatic malalignment. No interspinous widening, jumped, or perched facets. The patient is status post ACDF at C6-C7 with bony fusion at this level. No evidence of hardware failure. DEGENERATIVE CHANGES: Mild multilevel degenerative changes including endplate osteophyte formation and disc space height loss most pronounced at C5. Varying levels of foraminal stenosis. Facet and uncovertebral arthropathy. SOFT TISSUES: There is no prevertebral soft tissue swelling. Biapical emphysema. Dependent secretions within the trachea. IMPRESSION: No acute fracture or traumatic malalignment. I have personally reviewed the images of this examination and agree with the resident's findings and interpretation. Interpreted by: Alejandro Mercer Preliminary Report By: Beverly Miller Electronically signed By Alejandro Mercer Dictated Date: 03/06/2023 12:17:36 AM Prelim Date: 03/06/2023 12:28:40 AM Sign Date: 03/06/2023 12:33:41 AM Ordering Provider: [facility]07-14-2023 Note ORIGINAL EXAMINATION: CT OF THE HEAD WITHOUT CONTRAST 03/06/2023 12:06 am TECHNIQUE: CT of the head was performed without the administration of intravenous contrast. Automated exposure control, iterative reconstruction, and/or weight based adjustment of the mA/kV was utilized to reduce the radiation dose to as low as reasonably achievable. COMPARISON: CT head December 12, 2011 HISTORY: ORDERING SYSTEM PROVIDED HISTORY: Reason for Exam: pain; trauma patient FINDINGS: BRAIN/VENTRICLES: There is no acute intracranial hemorrhage, mass effect or midline shift. No abnormal extra-axial fluid collection. The sanders-white differentiation is maintained without evidence of an acute infarct. There is no evidence of hydrocephalus. Embolization coil in the distal basilar artery. ORBITS: The visualized portion of the orbits demonstrate no acute abnormality. SINUSES: The visualized paranasal sinuses and mastoid air cells demonstrate no acute abnormality. SOFT TISSUES/SKULL: No acute abnormality of the visualized skull or soft tissues. IMPRESSION: No acute intracranial hemorrhage. Interpreted by: Alejandro Mercer Preliminary Report By: Alejandro Mercer Electronically signed By Alejandro Mercer Dictated Date: 03/06/2023 12:12:16 AM Prelim Date: 03/06/2023 12:14:25 AM Sign Date: 03/06/2023 12:14:25 AM Ordering Provider: [facility]04-06-2023 Miscellaneous Notes* Care Coordination - Unknown Case Management - 11/27/2022 12:45 PM EDT Patient Choice Patient Name: ORTIZ JACOBS Date of : 1970 * Home Care - Cullen Eason RN - 11/27/2022 12:27 PM EDT Start PACC Note Home Health Referral Educated patient on Home Care and services available. Patient offered choice of available HHC and [facility] Care Types: [facility] Neuro Care Type Wound Care/Dressing Changes - Surgical Incisions leave open to air, cleanse daily with mild soap and warm water, pat dry, no lotion or powders on incision. - If there is wound please remove the dressing 48 hours after surgery. Respiratory Care: - Cough and Deep Breath: Use incentive spirometry 10 times ever hours while awake for 2 weeks. Additional Orders: - Vital signs per Home Health Protocol. Activity/Weight Bearing: - Up with assistance: up in chair for all meals, ambulate 3-4 times per day. - Stretching exercises per PT discharges instructions. - No Lifting, twisting, pushing, pulling objects, or bending back. Isolation Precautions: No active isolations Social Determinates of Health: Tobacco Use: High Risk Smoking Tobacco Use: Every Day Smokeless Tobacco Use: Never Passive Exposure: Not on file Social History Substance and Sexual Activity Alcohol Use No Alcohol/week: 0.0 standard drinks Social History Substance and Sexual Activity Drug Use No Does the patient have any financial resource strain? No Does the patient have any food insecurities? No Does the patient have any housing instabilities? No If any of the above is noted as yes - consider a SLIDE FORMING MACHINE OPERATOR evaluation once the patient returns home. START PATIENT REGISTRATION INFORMATION Order Information Order Signing Physician: Adalberto Vásquez, DO Service Ordered RN ?: No Service Ordered PT ?: Yes Service Ordered OT ?: No Service Ordered ST ?: No Service Ordered SLIDE FORMING MACHINE OPERATOR?:No Service Ordered MEDICAL SOCIAL WORKER?: No Following Physician: Dr Kenny Serna Following Physician Overseeing Physician: Dr Kenny Serna (Required for Residents only) Agreeable to Follow? Yes Date/Time of Call 11/27/22 12:27 PM, Spoke with: Performed surgery Care Coordination SOC Call from [facility] Required?: No Same Day SOC?: No Primary Care Physician: Amandeep Loredo DO Primary Care Physician Primary Care Physician Address: [address] [place] [address] / [place] [address] Visit Instructions: N/A Service Discharge Location Type: Home with Home Health Care Service Facility Name: N/A Service Floor Facility: N/A Service Room No: N/A Demographics Patient Last Name: Marlon Patient First Name: Ortiz Language/Communication Barrier: None Service Address: [address] [place] [address] Service City: [facility] [place]: [place] Service [place]IP: [address] Service (home) Other phone numbers: Telephone Information: Emergency Contact: Extended Emergency Contact Information Primary Emergency Contact: MillerEsau Relation: Other Admission Information Admit Date: 11/25/2022 Patient status at discharge: Observation Caregiver Information Caregiver First Name: Lucero Caregiver Last Name: Marlon Caregiver Relationship to Patient Daughter Caregiver Caregiver Notes: N/A HITECH [employer] HIGHTECH: HI TECH - FRESH ORTHO Procedure: L3-L4 XLIF and laminectomy with extension of posterior spinal fusion from L3-S1 Date of procedure: 11/06/2022 Precautions: No deep bends and no lifting greater than 10lbs Surgeon: Dr. Kenny Serna END PATIENT REGISTRATION INFORMATION Pt Home Health goal Get home and get stronger Admitting Diagnosis Dehydration [E86.0] Seizure (HCC) [R56.9] Right leg pain [M79.604] History of spinal surgery [Z98.890] Syncope, unspecified syncope type [R55] Diarrhea, unspecified type [R19.7] Nausea and vomiting, unspecified vomiting type [R11.2] Brief loss of consciousness [R55] COVID Status 1. Do you have any upper respiratory symptoms (cough, SOB, Fever)? No 2. Have you been exposed to anyone with COVID-19 Virus? No Answer only if pending or positive for COVID-19? 1. Agreeable to wear PPE at each visit? Yes 2. Is the hospital supplying them with PPE upon Discharge? No Start PACC Summary General Report/ Additional Comments Patient was hospitalized with syncope and collapse admitted on 11/25/2022. She was given fluids and started on Keppra 2x daily. Patient recently had a L3-L4 XLIF and laminectomy with extension of posterior spinal fusion from L3-S1 and was pending with [facility]. During the PT eval PT noted: Decreased functional mobility , Decreased ADL status, Increased pain and recommended the patient to have [facility] PT once she returns home. Discharge Date: 11/27/2022 Referral Source-PACC: (Hospital/Unit): [facility] / N4-460/N4-460 A End PACC Note * Care Coordination - DELMY Uriostegui - 11/26/2022 3:01 PM EDT ED SW follow up. Communicated with PT; recommending home with PT and front wheeled walker. Per chart note, patient is currently pending with [facility]. SW sent referral/task to [facility] outreach liaison to inform of recommendation and for arrangements of DME. * Home Care - Shira Faulkner RN - 11/26/2022 8:17 AM EDT Patient is currently pending with [facility]. Quality Assurance Monitor Final to continue to follow. * Care Coordination - Unknown Case Management - 11/25/2022 9:36 AM EDT Next Site of Care Admission Date: 11/25/2022 09:54 AM Patient Name: ORTIZ JACOBS Location: [address] [facility] [id number] A Date of : 1970 Placement Information Referral Type:Home Health Care Services - New Referral ID:[id number] Provider Name:[facility] Address 1:[address] [place], [place] [address] Address 2: City:[place] Selection Factors:Patient/Family Choice State:[place] documented in this [facility]04-06-2023 Note* Care Coordination - Unknown Case Management - 11/27/2022 12:45 PM EDT Patient Choice Patient Name: ORTIZ JACOBS Date of : 1970 [id number]* Care Coordination - Unknown Case Management - 11/27/2022 12:45 PM EDT Patient Choice Patient Name: ORTIZ JACOBS Date of : 1970 [place] [id number] Nurse Note* Spring Miller LPN - 11/27/2022 12:33 PM EDT Discharge paperwork reviewed with pt. Pt understood and signed paperwork. Pt taken down via wheelchair. [id number]* Spring Miller LPN - 11/27/2022 12:33 PM EDT Discharge paperwork reviewed with pt. Pt understood and signed paperwork. Pt taken down via wheelchair. [facility]* Home Care - Cullen Eason RN - 11/27/2022 12:27 PM EDT Start PACC Note Home Health Referral Educated patient on Home Care and services available. Patient offered choice of available HHC and agreeable to PT services with [facility] - Home Care. Care Types: [facility] Neuro Care Type Wound Care/Dressing Changes - Surgical Incisions leave open to air, cleanse daily with mild soap and warm water, pat dry, no lotion or powders on incision. - If there is wound please remove the dressing 48 hours after surgery. Respiratory Care: - Cough and Deep Breath: Use incentive spirometry 10 times ever hours while awake for 2 weeks. Additional Orders: - Vital signs per Home Health Protocol. Activity/Weight Bearing: - Up with assistance: up in chair for all meals, ambulate 3-4 times per day. - Stretching exercises per PT discharges instructions. - No Lifting, twisting, pushing, pulling objects, or bending back. Isolation Precautions: No active isolations Social Determinates of Health: Tobacco Use: High Risk Smoking Tobacco Use: Every Day Smokeless Tobacco Use: Never Passive Exposure: Not on file Social History Substance and Sexual Activity Alcohol Use No Alcohol/week: 0.0 standard drinks Social History Substance and Sexual Activity Drug Use No Does the patient have any financial resource strain? No Does the patient have any food insecurities? No Does the patient have any housing instabilities? No If any of the above is noted as yes - consider a SLIDE FORMING MACHINE OPERATOR evaluation once the patient returns home. START PATIENT REGISTRATION INFORMATION Order Information Order Signing Physician: Adalberto Vásquez, DO Service Ordered RN ?: No Service Ordered PT ?: Yes Service Ordered OT ?: No Service Ordered ST ?: No Service Ordered SLIDE FORMING MACHINE OPERATOR?:No Service Ordered MEDICAL SOCIAL WORKER?: No Following Physician: Dr Kenny Serna Following Physician Overseeing Physician: Dr Kenny Serna (Required for Residents only) Agreeable to Follow? Yes Date/Time of Call 11/27/22 12:27 PM, Spoke with: Performed surgery Care Coordination SOC Call from [facility] Required?: No Same Day SOC?: No Primary Care Physician: Amandeep Loredo DO Primary Care Physician Primary Care Physician Address: [address] [place] [address] / [facility] [id number] Visit Instructions: N/A Service Discharge Location Type: Home with Home Health Care Service Facility Name: N/A Service Floor Facility: N/A Service Room No: N/A Demographics Patient Last Name: Jacobs Patient First Name: Ortiz Language/Communication Barrier: None Service Address: [address] [place] [address] Service City: [place] Service [place]: [place] Service ZIP: [address] Service (home) Other phone numbers: Telephone Information: Emergency Contact: Extended Emergency Contact Information Primary Emergency Contact: Esau Miller Relation: Other Admission Information Admit Date: 11/25/2022 Patient status at discharge: Observation Caregiver Information Caregiver First Name: Lucero Caregiver Last Name: Marlon Caregiver Relationship to Patient Daughter Caregiver Caregiver Notes: N/A [employer] HIGHTECH: HI TECH - FRESH ORTHO Procedure: L3-L4 XLIF and laminectomy with extension of posterior spinal fusion from L3-S1 Date of procedure: 11/06/2022 Precautions: No deep bends and no lifting greater than 10lbs Surgeon: Dr. Kenny Serna END PATIENT REGISTRATION INFORMATION Pt Home Health goal Get home and get stronger Admitting Diagnosis Dehydration [E86.0] Seizure (HCC) [R56.9] Right leg pain [M79.604] History of spinal surgery [Z98.890] Syncope, unspecified syncope type [R55] Diarrhea, unspecified type [R19.7] Nausea and vomiting, unspecified vomiting type [R11.2] Brief loss of consciousness [R55] COVID Status 1. Do you have any upper respiratory symptoms (cough, SOB, Fever)? No 2. Have you been exposed to anyone with COVID-19 Virus? No Answer only if pending or positive for COVID-19? 1. Agreeable to wear PPE at each visit? Yes 2. Is the hospital supplying them with PPE upon Discharge? No Start PACC Summary General Report/ Additional Comments Patient was hospitalized with syncope and collapse admitted on 11/25/2022. She was given fluids and started on Keppra 2x daily. Patient recently had a L3-L4 XLIF and laminectomy with extension of posterior spinal fusion from L3-S1 and was pending with DIAZ. During the PT eval PT noted: Decreased functional mobility , Decreased ADL status, Increased pain and recommended the patient to have [facility] PT once she returns home. Discharge Date: 11/27/2022 Referral Source-PACC: (Hospital/Unit): [facility] / [id number]/[id number] A End PACC Note [id number]* Home Care - Cullen Eason RN - 11/27/2022 12:27 PM EDT Start PACC Note Home Health Referral Educated patient on Home Care and services available. Patient offered choice of available HHC and agreeable to PT services with [facility]. Care Types: [facility] Care Type Wound Care/Dressing Changes - Surgical Incisions leave open to air, cleanse daily with mild soap and warm water, pat dry, no lotion or powders on incision. - If there is wound please remove the dressing 48 hours after surgery. Respiratory Care: - Cough and Deep Breath: Use incentive spirometry 10 times ever hours while awake for 2 weeks. Additional Orders: - Vital signs per Home Health Protocol. Activity/Weight Bearing: - Up with assistance: up in chair for all meals, ambulate 3-4 times per day. - Stretching exercises per PT discharges instructions. - No Lifting, twisting, pushing, pulling objects, or bending back. Isolation Precautions: No active isolations Social Determinates of Health: Tobacco Use: High Risk Smoking Tobacco Use: Every Day Smokeless Tobacco Use: Never Passive Exposure: Not on file Social History Substance and Sexual Activity Alcohol Use No Alcohol/week: 0.0 standard drinks Social History Substance and Sexual Activity Drug Use No Does the patient have any financial resource strain? No Does the patient have any food insecurities? No Does the patient have any housing instabilities? No If any of the above is noted as yes - consider a SLIDE FORMING MACHINE OPERATOR evaluation once the patient returns home. START PATIENT REGISTRATION INFORMATION Order Information Order Signing Physician: Adalberto Vásquez, DO Service Ordered RN ?: No Service Ordered PT ?: Yes Service Ordered OT ?: No Service Ordered ST ?: No Service Ordered SLIDE FORMING MACHINE OPERATOR?:No Service Ordered MEDICAL SOCIAL WORKER?: No Following Physician: Dr Kenny Serna Following Physician Overseeing Physician: Dr Kenny Serna (Required for Residents only) Agreeable to Follow? Yes Date/Time of Call 11/27/22 12:27 PM, Spoke with: Performed surgery Care Coordination SOC Call from [facility] Required?: No Same Day SOC?: No Primary Care Physician: Amandeep Loredo DO Primary Care Physician Primary Care Physician Address: [address] [place] [address] / [place] [phone] Visit Instructions: N/A Service Discharge Location Type: Home with Home Health Care Service Facility Name: N/A Service Floor Facility: N/A Service Room No: N/A Demographics Patient Last Name: Marlon Patient First Name: Ortiz Language/Communication Barrier: None Service Address: [address] [place] [address] Service City: [facility] ST: [place] Service ZIP: [address] Service (home) Other phone numbers: Telephone Information: Emergency Contact: Extended Emergency Contact Information Primary Emergency Contact: Esau Miller Relation: Other Admission Information Admit Date: 11/25/2022 Patient status at discharge: Observation Caregiver Information Caregiver First Name: Lucero Caregiver Last Name: Marlon Caregiver Relationship to Patient Daughter Caregiver Caregiver Notes: N/A [employer] HIGHTECH: HI TECH - FRESH ORTHO Procedure: L3-L4 XLIF and laminectomy with extension of posterior spinal fusion from L3-S1 Date of procedure: 11/06/2022 Precautions: No deep bends and no lifting greater than 10lbs Surgeon: Dr. Kenny Serna END PATIENT REGISTRATION INFORMATION Pt Home Health goal Get home and get stronger Admitting Diagnosis Dehydration [E86.0] Seizure (HCC) [R56.9] Right leg pain [M79.604] History of spinal surgery [Z98.890] Syncope, unspecified syncope type [R55] Diarrhea, unspecified type [R19.7] Nausea and vomiting, unspecified vomiting type [R11.2] Brief loss of consciousness [R55] COVID Status 1. Do you have any upper respiratory symptoms (cough, SOB, Fever)? No 2. Have you been exposed to anyone with COVID-19 Virus? No Answer only if pending or positive for COVID-19? 1. Agreeable to wear PPE at each visit? Yes 2. Is the hospital supplying them with PPE upon Discharge? No Start PACC Summary General Report/ Additional Comments Patient was hospitalized with syncope and collapse admitted on 11/25/2022. She was given fluids and started on Keppra 2x daily. Patient recently had a L3-L4 XLIF and laminectomy with extension of posterior spinal fusion from L3-S1 and was pending with DIAZ. During the PT eval PT noted: Decreased functional mobility , Decreased ADL status, Increased pain and recommended the patient to have [facility] PT once she returns home. Discharge Date: 11/27/2022 Referral Source-PACC: (Hospital/Unit): [facility] / N4-460/N4-460 A End PACC [id number] of Present illness Narrative* Nenita Patricio DTR - 11/27/2022 8:23 AM EDT Nutrition rescreen completed. Chart reviewed. Patient to be monitored and followed by the diet ordnance technician. * Tracy Arreola, PT - 11/26/2022 2:42 PM EDT Physical Therapy Facility/Department: ED Physical Therapy Initial Evaluation NAME: Berenice Jacobs : 1970 Date of Service: 11/26/2022 Discharge Recommendations: Home with Home health PT, Home with assist PRN PT Equipment Recommendations Equipment Needed: Yes Mobility Devices: Walker Walker: Rolling Assessment Assessment: Pt ambulated functional distance with fww. C/o back pain during and after mobility. Noted gait deviation but no overt LOB. Anticipate discharge to home with assist as needed, recommend home care PT. Performance Deficits/Impairments: Decreased functional mobility , Decreased ADL status, Increased pain Decision Making: Low Complexity Activity Tolerance Activity Tolerance: Patient limited by pain Patient Diagnosis(es): The primary encounter diagnosis was Syncope, unspecified syncope type. Diagnoses of History of spinal surgery, Dehydration, Diarrhea, unspecified type, Seizure ([facility]), Nausea and vomiting, unspecified vomiting type, and Right leg pain were also pertinent to this visit. has a past medical history of Asthma, Cerebral aneurysm, nonruptured (2011), Cervical spine degeneration (2006), Colon cancer screening (2011), Condyloma, Conversion disorder (2015), Depression, major, recurrent ([facility]), Displacement of lumbar intervertebral disc (2015), Ex-smoker (2013), Family history of colon cancer (2011), Gastroparesis, GERD (gastroesophageal reflux disease), History of malignant melanoma, History of renal carcinoma (03/02), History of renal stone, IBS (irritable bowel syndrome), Insomnia, [place] (myocardial infarction) ([facility]) ([facility]) (2005), Migraine, Neuropathy (2018), PAF (paroxysmal atrial fibrillation) ([facility]) ([facility]), PTSD (post-traumatic stress disorder), PUD (peptic ulcer disease) (2011), Seizure disorder ([facility]) ([facility]), Sleep apnea, Stroke ([facility]) (08/2010), Substance abuse ([facility]) ([facility]) (06/2016), Surgical menopause, and Urinary incontinence. has a past surgical history that includes Total abdominal hysterectomy (04/2010); Tubal ligation (1999); Upper gastrointestinal endoscopy (02/2019); Cervical fusion (2006); Oophorectomy (Right, 05/04);Lumbar fusion (02/2016); Cholecystectomy (1986); Cystoscopy (04/30/11); Appendectomy (1987); Gastric s timulator implant surgery (11/25/2017); Arterial aneurysm repair (06/04); and Gastric stimulator implant surgery (01/2013). Restrictions Restrictions/Precautions Restrictions/Precautions: Surgical Protocols Required Braces or Orthoses?: No Position Activity Restriction Spinal Precautions: No Bending, No Lifting, No Twisting Vision/Hearing Vision: Within Functional Limits Hearing: Functional/adequate for paticipation in therapy Cognition/Orientation Overall Cognitive Status: WFL Overall Orientation Status: Within Functional Limits Subjective General Chart Reviewed: Yes Patient Assessed for Rehabilitation Services: Yes Additional Pertinent Hx: XLIF L3-L4 with ext of PSF L3-S1 w L3-L4 lami Family / Caregiver Present: No Diagnosis: syncope Follows Commands: Within Functional Limits General Comment Comments: XLIF L3-L4 with ext of PSF L3-S1 w L3-L4 lami Subjective Subjective: Pt in bed, agree with PT treatment. Pain Assessment Pain Assessment: 0-10 Pain Score: 7 Pain Type: Surgical pain Pain Location: Back Pain Interventions: Ambulation/increased activity Social/Functional History Social/Functional History Type of Home: House Home Layout: One level Home Access: Level entry ADL Assistance: Independent Homemaking Assistance: Needs assistance Ambulation Assistance: Independent With device?: Yes Device: standard walker Transfer Assistance: Independent Additional Comments: Home care PT but has not been seen since discharge to home. Objective Observation/Palpation Posture: Fair Gross Assessment Gross Assessment: Yes AROM: Within functional limits PROM: Within functional limits Strength: Within functional limits Coordination: Within functional limits Tone: Normal Sensation: Intact Gross Assessment: Yes AROM: Within functional limits PROM: Within functional limits Strength: Within functional limits Coordination: Within functional limits Tone: Normal Sensation: Intact Strength RLE Comment: 4/5 Strength LLE Comment: 4/5 Tone RLE RLE Tone: Normotonic Tone LLE LLE Tone: Normotonic Bed mobility Supine to Sit: Modified independent Sit to Supine: Modified independent Scooting: Modified independent Transfers Sit to Stand: Modified independent Stand to sit: Modified independent Stand Pivot Transfers: Modified independent Ambulation Ambulation: Yes Ambulation 1 Surface 1: Level tile Device 1: Rolling walker Assistance 1: Standby assistance Quality of Gait 1: slow alejandra, uneven step length Distance (ft) 1: 150 ft Balance Posture: Fair Sitting - Static: Good Sitting - Dynamic: Good, - Standing - Static: Good, - Standing - Dynamic: Fair, + Plan Times per Week: 2-3x/wk Plan Weeks: 2 Current Treatment Recommendations: Strengthening, Balance Training, Functional Mobility Training, Transfer Training, Gait Training, Home Exercise Program Safety Safety Devices Safety Devices in Place: Yes Type of Devices: Left in bed, Nurse notified, Call light within reach Restraints Restraints Initially in Place: No Outcomes Score AM-PAC Score AM-PAC Inpatient Mobility Raw Score: 20 Mobility Inpatient CMS G-Code Modifier: CJ Goals Encounter Problems Encounter Problems (Active) Mobility Patient will ambulate 300 feet with modified independence and rolling walker in order to improve safety and independence with mobility. Start: 11/26/22 Expected End: 12/10/22 Education Education Given To: Patient Education Provided: Goals, PT Role, Plan of Care Education Method: Verbal Barriers to Learning: None Education Outcome: Verbalized understanding Patient s Physical Therapy Plan of Care supervision is transferred to [facility] Rehab Department Physical Therapist. Therapy Time Individual Co-treatment Time In 1420 Time Out 1433 Minutes 13 Tracy Arreola PT * Chani Amador MD - 11/26/2022 9:29 AM EDT [facility] Progress Note Ortiz Jacobs : 1970(52 y.o.) Date: November 26, 2022 Attending: Dr. Vásquez Chief Complaint: Syncope Subjective: - No acute events overnight. - Patient states that she went to her ortho post op yesterday and there she started to feel lightheaded, nausea, diaphoretic and then reportedly passed out. She states that she woke up on a gurney togo to ED and then passed out again. States she was told she passed out 3 times but does not recall any of it. Denies any tongue biting, urinary/bowel incontinence - Reviewed the note from ortho office - patient reportedly had LOC for 30 seconds while in lateral decubitus position and was apneic. This was witnessed by the field trainer. Then the PA entered the room and she had ~ 5 episodes of nonsynchronus irregular jerkin of all 4 extremities simultaneously until she was taken by the squad. States that patient was postictal states after this. - This AM, patient denies any further episodes of seizure like activity. She states that she has history of seizures and that her neurologist refused to refill her Keppra as she needed an appointment. States she was only out of it for about 2 days prior to admission. (The note from ortho office states that she took it in AM and vomited it up). - Patient does endorse significant back pain - Also endorses a rash that started on her back surgical site and has spread to her chest under herbreasts, legs, arms, face. States she has ulcers in her mouth as well. States that the rash is veryitchy. Does not drain unless she scratches it -of note, patient did send in message to ortho about rash on her back and they had stated it was contact dermatitis. She had been given a medrol dose pack by an outside provider (filled 11/11) - States she had been having 10-12 episodes of diarrhea since her surgery as well and unable to keep anything down - Has right LE pain/numbness that has been stable since her surgery - Discussed drug use with patient as MAT panel positive for cocaine, fentanyl, opiates - she is adamant that she does not do drugs Review of Systems Constitutional: Negative for chills, fatigue and fever. Respiratory: Negative for shortness of breath. Cardiovascular: Negative for chest pain. Gastrointestinal: Negative for abdominal pain, constipation, diarrhea, nausea and vomiting. Musculoskeletal: Positive for back pain. Skin: Positive for rash. Neurological: Positive for seizures (History of), syncope, weakness (RLE) and numbness (RLE). Negative for light-headedness and headaches. Scheduled Meds:acetaminophen, 1,000 mg, Oral, q8h aspirin, 81 mg, Oral, Daily cyanocobalamin, 500 mcg, Oral, Daily enoxaparin, 40 mg, SubCUTAneous, Daily gabapentin, 300 mg, Oral, TID levETIRAcetam, 1,500 mg, IntraVENous, BID methocarbamol, 1,500 mg, Oral, TID nystatin, 5 mL, Swish & Swallow, 4x daily pantoprazole, 40 mg, Oral, qAM AC Continuous Infusions:sodium chloride, 150 mL/hr, Last Rate: 150 mL/hr (11/26/22 0630) Objective: BP (!) 144/75 (BP Location: Left arm, Patient Position: Lying) Pulse 80 Temp 36.6 C (97.8 F) (Temporal) Resp 18 Ht 5' 8 (1.727 m) Wt 170 lb (77.1 kg) SpO2 99% BMI 25.85 kg/m Physical Exam Constitutional: General: She is not in acute distress. Appearance: Normal appearance. She is not ill-appearing. Cardiovascular: Rate and Rhythm: Normal rate and regular rhythm. Pulmonary: Effort: Pulmonary effort is normal. No respiratory distress. Breath sounds: Normal breath sounds. Abdominal: General: Bowel sounds are normal. There is no distension. Palpations: Abdomen is soft. Tenderness: There is no abdominal tenderness. Musculoskeletal: Right lower leg: No edema. Left lower leg: No edema. Skin: General: Skin is warm and dry. Findings: Rash present. Comments: Maculopapular rash surrounding back incision site as well as under bilateral breasts. Does have small ulceration in corner of right lip and left nares. Neurological: Mental Status: She is alert and oriented to person, place, and time. Psychiatric: Comments: Becomes tearful during encounter [facility] within last 24 hours Auto WBC Date Value Ref Range Status 11/26/2022 7.4 3.6 - 10.7 10*3/uL Final Hemoglobin Date Value Ref Range Status 11/26/2022 12.7 11.7 - 16.0 g/dL Final 11/25/2022 15.7 11.7 - 16.0 g/dL Final Hematocrit Date Value Ref Range Status 11/26/2022 39.4 35.0 - 47.0 % Final Platelets Date Value Ref Range Status 11/26/2022 322 140 - 440 10*3/uL Final MCV Date Value Ref Range Status 11/26/2022 94.4 80.0 -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 into affected nostril(s) in the morning. GABAPENTIN (NEURONTIN) 300 MG CAPSULE Take 1 capsule (300 mg) by mouth 3 times daily. GABAPENTIN (NEURONTIN) 300 MG CAPSULE Take 1 capsule (300 mg) by mouth 3 times daily. LEVETIRACETAM (KEPPRA) 1000 MG TABLET Take 1,500 mg by mouth 2 times daily. MELATONIN 10 MG CAPSULE Take 10 mg by mouth Nightly as needed. METHOCARBAMOL (ROBAXIN) 750 MG TABLET Take 2 tablets (1,500 mg) by mouth 3 times daily for 14 days. METHYLPREDNISOLONE (MEDROL DOSPAK) 4 MG TABLETS Take by mouth as directed by package instructions MISC. DEVICES MISC by Does not apply route ORTHOFIX BONE GROWTH STIMULATOR Location: Cervical Dr. Rivers Dr. Serna Please coordinate fitting and education with the patient. MULTIPLE VITAMINS-MINERALS (CENTRUM SILVER 50+WOMEN) TABLET Take 1 tablet by mouth in the morning. OMEPRAZOLE (PRILOSEC) [address] CAPSULE Take 40 mg by mouth in the morning. OXYCODONE-ACETAMINOPHEN (PERCOCET) 5-325 MG TABLET Take 1 tablet by mouth every 6 hours as needed for severe pain (7-10) for up to 7 days. TIZANIDINE (ZANAFLEX) 4 MG TABLET Take 1 tablet (4 mg) by mouth every 8 hours as needed for muscle spasms for up to 14 days. ALLERGIES Other, Penicillins, Iodinated contrast media, Barium-containing compounds, Bee venom, Hydrocodone, Latex, Propoxyphene, and Hydrocodone-acetaminophen FAMILY HISTORY Family History Problem Relation Name Age of Onset Stroke Mother alive age 88 Asthma Mother nonsmoker High Blood Pressure Mother Diabetes Mother 80 insuliin Coronary artery disease Father 83 CABG age 83 COPD Father vocational examiner- fall 2021 age 87 No Known Problems Sister Asthma Sister Cervical cancer Sister age 38 No Known Problems Sister Uterine cancer Sister COPD Brother Coronary artery disease Brother age 50, smoker Prostate cancer Brother SOCIAL HISTORY Social History Socioeconomic History Marital status: Tobacco Use Smoking status: Every Day Packs/day: 0.50 Years: 16.00 Pack years: 8.00 Types: Cigarettes Smokeless tobacco: Never Vaping Use Vaping Use: Never used Substance and Sexual Activity Alcohol use: No Alcohol/week: 0.0 standard drinks Drug use: No Social History Narrative Dating and living with Esau. Stopped smoking since 2013, 2 dtrs, with 6 GC, No ETOH, disabled due toPTSD, migraines. SCREENINGS PHYSICAL EXAM ED Triage Vitals Temp Heart Rate Resp BP 11/25/22 1030 11/25/22 1020 11/25/22 1030 11/25/22 1030 36.6 C (97.8 F) 107 20 112/71 SpO2 Temp Source Heart Rate Source Patient Position 11/25/22 1030 11/25/22 1030 11/25/22 1030 11/25/22 1030 99 % Temporal Monitor Lying BP Location FiO2 (%) 11/25/22 1030 -- Right arm Physical Exam General: WDWN adult in NAD. Non-toxic appearing HENT: Head NCAT, EOMI with no erythema, swelling or discharge. Oropharyngeal mucus membranes very dry, there is white exudate on the tongue but not the posterior oropharynx Neck: Full ROM, supple, no rigidity Cardio: Tachycardic in the 110s, nl s1 s2 no m/r/g, extremities warm, dry, well perfused, non-edematous Lungs: CTAB, no wheezes, rales, rhonchi, normal work of breathing. No cyanosis no retractions. Speaks complete sentences. Abdomen: Soft, NT, ND, non-rigid, BS x 4 normal MSK: No midline cervical or thoracic spine pain to palpation. There is diffuse lumbar level pain topalpation over the patient's recent surgical site, consistent with recent postoperative status Skin: There is a thin area of pink inflammatory change around the Surgical site, but there is no active sign of infection. There is no purulent or bloody drainage. No petechia no purpura. There is no wound dehiscence. All sutures and ciara have been removed. Wound appears in good shape for this stage postoperatively. Neuro: Patient alert, oriented, able to answer questions and follow commands rn bsn II-XII normal Normal 5/5 strength and normal sensation in all four extremities DTRs are normal 2/4 and equal bilaterally Normal coordination in upper and lower extremities Gait not tested Normal speech No facial droop No pronator drift Normal rectal tone. Negative saddle anesthesia Patient does not appear postictal or confused DIAGNOSTIC RESULTS RADIOLOGY (Per Emergency Physician): Interpretation per the Radiologist below, if available at the time of this note: CT head wo IV contrast Final Result No acute intracranial abnormalities. Report Dictated on Electronically Signed By: Agustina Zarate Electronically Signed Date/Time: 11/25/2022 5:[address] abdomen pelvis w contrast Final Result 1. No PE identified. PE cannot be evaluated beyond the segmental level due to the limitations above. 2. Mild emphysematous changes in the lungs. No acute cardiopulmonary abnormalities. 3. No acute intra-abdominal abnormalities. Report Dictated on Electronically Signed By: Agustina Zarate Electronically Signed Date/Time: 11/25/2022 6:06 PM EDT CTA chest angiogram w and/or wo IV contrast Final Result 1. No PE identified. PE cannot be evaluated beyond the segmental level due to the limitations above. 2. Mild emphysematous changes in the lungs. No acute cardiopulmonary abnormalities. 3. No acute intra-abdominal abnormalities. Report Dictated on Electronically Signed By: Agustina Zarate Electronically Signed Date/Time: 11/25/2022 6:06 PM EDT XR chest 1 view Final Result Impression: No acute cardiopulmonary process. Report Dictated on Electronically Signed By: Rudy Valero Electronically Signed Date/Time: 11/25/2022 1:23 PM EDT Vascular US lower extremity venous duplex bilateral (Results Pending) CT head shows no acute intracranial abnormalities. 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 This is unchanged. There is no hemorrhage mass or infarct. Reviewed by radiology and by me. CT abdomen pelvis shows no acute intra-abdominal abnormalities to explain the patient's nausea vomiting. Patient is status post L3-S1 posterior instrumented fusion with L3-L4 anterior intervertebral body fusion and L3-L5 laminectomies. No acute osseous findings. No indication for emergent orthopedic surgery consultation at this time. Patient just came from the office of her doctor prior to arrival; the sutures were being removed from her surgical site when she had a loss of consciousness. CT imaging reviewed by radiology and by me. CTA chest shows no PE. Mild emphysematous changes in the lungs. No acute cardiopulmonary abnormalities. Chest x-ray shows no acute cardiopulmonary process LABS: Labs Reviewed GASTROINTESTINAL PCR PANEL HCG QUANTITATIVE BLOOD CBC WITH AUTO DIFFERENTIAL BASIC METABOLIC PANEL PROLACTIN LACTIC ACID, PLASMA TROPONIN I D-DIMER,QUANTITATIVE POCT GLUCOSE METER Metabolic panel shows no metabolic acidosis, good kidney function, glucose within normal limits Troponin negative Folate normal Not No lactic acidosis. Argues against a seizure B12 normal Normal white blood cell count Hemoconcentrated, likely dehydrated. We will rehydrate patient. Normal platelet count Prolactin negative. While not as sensitive as an EEG this argues against a seizure TSH within normal limits Respiratory PCR panel negative All other labs were within normal range or not returned as of this dictation. I read and interpreted this EKG. My interpretation can be found in the [employer] EKG system. EMERGENCY DEPARTMENT COURSE and DIFFERENTIAL DIAGNOSIS/MDM: Vitals: Vitals: 11/25/22 1020 11/25/22 1030 11/25/22 1034 BP: 112/71 BP Location: Right arm Patient Position: Lying Pulse: 107 86 Resp: 20 Temp: 36.6 C (97.8 F) TempSrc: Temporal SpO2: 99% 99% Weight: 77.1 kg (170 lb) Height: 1.727 m (5' 8) Medications sodium chloride 0.9 % bolus 1,000 mL (has no administration in time range) sodium chloride 0.9 % infusion (has no administration in time range) oxyCODONE-acetaminophen (Percocet) 5-325 MG per tablet 1 tablet (has no administration in time range) 52-year-old female presents for loss of consciousness Initially the patient's story was consistent with a syncopal episode and she denied any seizure history, however upon discussion with her doctor, they say she actually does have a seizure history andshe is supposed to be on Keppra and they witnessed her having seizure activity in the office. Therefore we will get a head CT to evaluate for causes of seizure, given her history of recent surgery and new onset tachycardia we will get a CTA chest to r/o PE, and given her several days of nausea vomiting diarrhea (despite her completely benign abdominal examination), we will get a CT of her abdomenpelvis. We will also hydrate her with IV fluids and a continuous IV fluid infusion. We will give her her missing dose of IV Keppra as well and she will be hospitalized for further evaluation of seizure versus syncopal episode or both. MDM elements: The patient presented with chief complaint of loss of consciousness, syncope versus seizure or both, appears clinically dehydrated. The differential diagnosis associated with this patient's presentation includes complex, see above. Our workup consisted of ordering/reviewing: CT head, CTA chest, CT abdomen pelvis, full metabolic work-up, rehydration. Patient is in agreement with this plan. PROCEDURES: Unless otherwise noted below, none Procedures All labs and imaging reviewed. No obvious findings on the patient's CT abdomen pelvis to explain her nausea vomiting, heart rate still upper limit of normal but technically no longer tachycardic following IV fluid infusion. There is no sign of acute osseous findings such as new fracture that would mandate emergent orthopedic surgery consultation and the surgical wound itself is in good shape. Contrary to patient's initial report, her doctor's office told us that she does have a history of seizures and she is supposed to be taking Keppra, so we gave patient a loading dose of Keppra here inthe emergency department for safety and no seizure activity occurred during the entirety of her ED stay thus far. No syncopal episodes or cardiac dysrhythmias have been witnessed either. Additionally she has a negative prolactin which while not as sensitive as an EEG, argues against a seizure. Right now it is not 100% certain whether she had a seizure episode or a syncopal episode orcombination of both. However given that there were 2 of these episodes in rapid succession and patient's recent surgery impairs her mobility and ability to care for self, she will be admitted to the hospital for further diagnostics. Disposition: Admitted Clinical impression: Syncope, history of spinal surgery, dehydration, diarrhea, seizure, nausea vomiting CRITICAL CARE TIME FINAL IMPRESSION See above DISPOSITION Admit 11/25/2022 10:12:17 AM PATIENT REFERRED TO: No follow-up provider specified. DISCHARGE MEDICATIONS: New Prescriptions No medications on file (Comment: Please note this report has been produced using speech recognition software and may contain errors related to that system including errors in grammar, punctuation, and spelling, as well as words and phrases that may be inappropriate. If there are any questions or concerns please feel freeto contact the dictating provider for clarification.) Earl Vickers MD (electronically signed) Emergency Medicine Provider Earl Vickers MD [id number] [employer] Phone: [phone] Physician Emergency department Note* Alfredito Cody MD - 11/25/2022 9:35 AM EDT Emergency Department Encounter Location: [facility] EM[facility] Patient: Ortiz Jacobs : 1970 Date of evaluation: 11/25/2022 ED Provider: Alfredito Cody MD Time received sign-out: 1500 Ortiz Jacobs was checked out to me by Dr. Leyva. Please see his/her initial documentation fordetails of the patient's initial ED presentation, physical exam and completed studies. I did perform a substantive portion of the visit including all aspects of the Medical Decision Making. In brief, Ortiz Jacobs is a 52 y.o. female that presented to the emergency department from the orthopedics office after sustaining a seizure-like episode while stitches are being removed. The office was contacted and it was reported the patient does have a seizure history and takes Keppra. I have reviewed and interpreted all of the currently available lab results and diagnostics from this visit: Results for orders placed or performed during the hospital encounter of 11/25/22 SARS-CoV-2 and Respiratory PCR Panel Specimen: Nasopharynx; Swab Result Value Ref Range SARS-CoV-2 Not Detected Not Detected Adenovirus Not Detected Not Detected Coronavirus HKU1 Not Detected Not Detected Coronavirus NL63 Not Detected Not Detected Coronavirus 229E Not Detected Not Detected Coronavirus OC43 Not Detected Not Detected Human Metapneumovirus Not Detected Not Detected Human Rhinovirus/Enterovirus Not Detected Not Detected Influenza A Not Detected Not Detected Influenza B Not Detected Not Detected Parainfluenza 1 Not Detected Not Detected Parainfluenza 2 Not Detected Not Detected Parainfluenza 3 Not Detected Not Detected Parainfluenza 4 Not Detected Not Detected Respiratory Syncytial Virus Not Detected Not Detected Bordetella pertussis Not Detected Not Detected Bordetella parapertussis Not Detected Not Detected Chlamydia pneumoniae Not Detected Not Detected Mycoplasma pneumoniae Not Detected Not Detected hCG, quantitative, Result Value Ref Range HCG QUANTITATIVE <2 Females < 5 mIU/mL CBC auto differential Result Value Ref Range Auto WBC 6.5 3.6 - 10.7 10*3/uL RBC 5.06 3.8 - 5.20 10*6/uL Hemoglobin 15.7 11.7 - 16.0 g/dL Hematocrit 47.5 (H) 35.0 - 47.0 % MCV 93.8 80.0 - 98.0 fL MCH 31.0 26.0 - 34.0 pg MCHC 33.1 32.0 - 36.0 % RDW 13.8 11.5 - 14.5 % Platelets 328 140 - 440 10*3/uL MPV 7.4 7.4 - 12.4 fL nRBC 0.2 0.0 - 2.0 /100 WBCs Neutrophils Relative 73.1 40.0 - 80.0 % Lymphocytes Relative 16.8 (L) 20.0 - 40.0 % Monocytes Relative 7.8 2.0 - 10.0 % Eosinophils Relative 1.6 1.0 - 6.0 % Basophils Relative 0.7 0.0 - 2.0 % Neutrophils Absolute 4.7 1.8 - 7.0 10*3/uL Lymphocytes Absolute 1.1 1.0 - 4.3 10*3/uL Monocytes Absolute 0.5 0.0 - 0.8 10*3/uL Eosinophils Absolute 0.1 0.0 - 0.5 10*3/uL Basophils Absolute 0.0 0.0 - 0.2 10*3/uL Basic metabolic panel Result Value Ref Range SODIUM 141 135 - 145 mmol/L POTASSIUM 3.7 3.5 - 5.1 mmol/L CHLORIDE 107 98 - 107 mmol/L CARBON DIOXIDE 26 22 - 30 mmol/L UREA NITROGEN 14 7 - 17 mg/dL CREATININE 0.61 0.52 - 1.04 mg/dL GLUCOSE 108 (H) 70 - 100 mg/dL CALCIUM 9.3 8.4 - 10.4 mg/dL ANION GAP 8 3 - 13 mmol/L eGFR >90.0 >60.0 mL/min/1.73m*2 Prolactin Result Value Ref Range PROLACTIN 6.7 2.8 - 27.0 ng/mL Lactic acid, plasma Result Value Ref Range LACTIC ACID 1.1 0.7 - 2.0 mmol/L Troponin I Result Value Ref Range TROPONIN I <0.012 0.000 - 0.034 ng/mL D-dimer, quantitative Result Value Ref Range D-DIMER, INNOVANCE 1.15 (H) <0.50 mg/L Folate Result Value Ref Range FOLATE >20.0 >=2.9 ng/mL Vitamin B12 Result Value Ref Range VITAMIN B12 642 239 - 931 pg/mL TSH Result Value Ref Range THYROID STIMULATING HORMONE 0.870 0.465 - 4.680 uIU/mL Hepatic function panel Result Value Ref Range BILIRUBIN, TOTAL 0.6 0.2 - 1.3 mg/dL BILIRUBIN, DIRECT 0.0 0.0 - 0.3 mg/dL ALKALINE PHOSPHATASE 197 (H) 38 - 126 U/L AST (SGOT) 38 15 - 46 U/L ALT 19 0 - 34 U/L ALBUMIN 4.4 3.5 - 5.0 g/dL TOTAL PROTEIN 7.7 6.3 - 8.2 g/dL ECG 12 lead Result Value Ref Range Heart Rate 107 bpm QRSD Interval 95 ms QT Interval 362 ms QTC Interval 484 ms P Josephine 74 degrees QRS Josephine 78 degrees T Wave Josephine 72 degrees RI Interval [address] head wo IV contrast Final Result No acute intracranial abnormalities. Report Dictated on Electronically Signed By: Agustina Zarate Electronically Signed Date/Time: 11/25/2022 5:[address] abdomen pelvis w contrast Final Result 1. No PE identified. PE cannot be evaluated beyond the segmental level due to the limitations above. 2. Mild emphysematous changes in the lungs. No acute cardiopulmonary abnormalities. 3. No acute intra-abdominal abnormalities. Report Dictated on Electronically Signed By: Agustina Zarate Electronically Signed Date/Time: 11/25/2022 6:06 PM EDT CTA chest angiogram w and/or wo IV contrast Final Result 1. No PE identified. PE cannot be evaluated beyond the segmental level due to the limitations above. 2. Mild emphysematous changes in the lungs. No acute cardiopulmonary abnormalities. 3. No acute intra-abdominal abnormalities. Report Dictated on Electronically Signed By: Agustina Zarate Electronically Signed Date/Time: 11/25/2022 6:06 PM EDT XR chest 1 view Final Result Impression: No acute cardiopulmonary process. Report Dictated on Electronically Signed By: Rudy Valero Electronically Signed Date/Time: 11/25/2022 1:23 PM EDT Vascular US lower extremity venous duplex bilateral (Results Pending) Final ED Course and MDM: In brief, Ortiz Jacobs is a 52 y.o. female whose care was signed out to me by the outgoing provider. In brief, the patient presented after having brief through seizure on Keppra while she was having sutures removed at the orthopedic office. The patient was loaded with 2 g of Keppra to prevent further seizures. Lab work obtained was significant for CBC, BMP lactic acid, troponin, prolactin, test, hepatic function panel. Lab work unremarkable other than alk phos of 197. Patient did have a positive D-dimer of 1.15. Patient had negative imaging including x-rays of the chest as well as CTs of the head, CTA of the chest, CT abdomen pelvis. Discussed the case with internal medicine who agreed to admit the patient for further management of breakthrough seizure. Medications sodium chloride 0.9 % infusion (150 mL/hr IntraVENous Rate/Dose Verify 11/26/22 0000) hydrOXYzine pamoate (Vistaril) capsule 25 mg (25 mg Oral Given 11/26/2222) acetaminophen (Tylenol) tablet 1,000 mg (1,000 mg Oral Given 11/25/222030) oxyCODONE (Roxicodone) immediate release tablet 5 mg ( Oral See Alternative 11/26/2222) Or oxyCODONE (Roxicodone) immediate release tablet 10 mg (10 mg Oral Given 11/26/2222) morphine sulfate (PF) injection 2 mg (2 mg IntraVENous Given 11/26/2222) nystatin (Mycostatin) 035051 UNIT/ML suspension 500,000 Units (500,000 Units Swish & Swallow Given 11/25/222099) aspirin EC tablet 81 mg (has no administration in time range) cyancobalamine (Vitamin B-12) tablet 500 mcg (has no administration in time range) fluticasone (Flonase) nasal spray 1 spray (has no administration in time range) gabapentin (Neurontin) capsule 300 mg (300 mg Oral Given 11/25/222213) melatonin tablet 10 mg (10 mg Oral Given 11/26/2222) methocarbamol (Robaxin) tablet 1,500 mg (1,500 mg Oral Given 11/25/222213) pantoprazole (ProtoNix) EC tablet 40 mg (has no administration in time range) ondansetron ODT (Zofran-ODT) disintegrating tablet 4 mg ( Oral See Alternative 11/26/2222) Or ondansetron (Zofran) injection 4 mg (4 mg IntraVENous Given 11/26/2222) polyethylene glycol (PEG) 3350 (Miralax) packet 17 g (has no administration in time range) enoxaparin (Lovenox) syringe 40 mg (has no administration in time range) perflutren lipid microspheres (Definity) injection 1.65 mg (has no administration in time range) levETIRAcetam (Keppra) 1,500 mg in sodium chloride 0.9 % 100 mL IVPB (0 mg IntraVENous Stopped 11/25/222243) Petrolatum ointment (has no administration in time range) sodium chloride 0.9 % bolus 1,000 mL (0 mL IntraVENous Stopped 11/25/22 1208) oxyCODONE-acetaminophen (Percocet) 5-325 MG per tablet 1 tablet (1 tablet Oral Given 11/25/22 1123) levETIRAcetam (Keppra) 2,000 mg in sodium chloride 0.9 % 100 mL IVPB (0 mg IntraVENous Stopped 11/25/22 1136) diphenhydrAMINE (BENADryl) injection 50 mg (50 mg IntraVENous Given 11/25/22 1114) famotidine (Pepcid) injection 20 mg (20 mg IntraVENous Given 11/25/22 1114) ondansetron (Zofran) injection 4 mg (4 mg IntraVENous Given 11/25/22 1128) methylPREDNISolone sod suc (PF) (SOLU-Medrol) 40 MG injection 40 mg (40 mg IntraVENous Given ) diphenhydrAMINE (BENADryl) injection 50 mg (50 mg IntraVENous Given 11/25/22 1630) morphine sulfate (PF) injection 4 mg (4 mg IntraVENous Given 11/25/22 1715) ondansetron (Zofran) injection 4 mg (4 mg IntraVENous Given 11/25/22 1715) iopamidol (Isovue-370) 76 % injection 75 mL (75 mL IntraVENous Given 11/25/22 1741) morphine sulfate (PF) injection 2 mg (2 mg IntraVENous Given 11/25/22 1857) permethrin (Elimite) 5 % cream ( Topical Given 11/25/222213) lidocaine (Xylocaine) 2 % mouth solution 15 mL (15 mL Mouth/Throat Given 11/25/222213) aluminum & magnesium hydroxide-simethicone (Mylanta) 200-200-20 MG/5ML oral suspension 10 mL (10 mL Oral Given 11/25/222213) Final Impression 1. Syncope, unspecified syncope type 2. History of spinal surgery 3. Dehydration 4. Diarrhea, unspecified type 5. Seizure (HCC) 6. Nausea and vomiting, unspecified vomiting type 7. Right leg pain DISPOSITION Admit 11/25/2022 06:33:16 PM (Please note that portions of this note may have been completed with a voice recognition program. Efforts were made to edit the dictations but occasionally words are mis-transcribed.) Alfredito Cody MD [employer] Alfredito Cody MD Resident 11/26/22 0139 [id number] History of Present illness Narrative* Ha Carcamo PA-C - 11/25/2022 8:30 AM EDT Images from the original note were not included. [facility] [address] [place] [address] [place] [id number] Dept: [phone] Dept Tennille[place]ush Jacobs 1970 [id number] 11/25/2022 Problem List: L3-L4 XLIF and laminectomy with extension of posterior spinal fusion from L3-S1 Lumbar radiculopathy Diagnoses: (Z98.890) Status post spinal surgery (M54.16) Lumbar radiculopathy Chief Complaint Patient presents with Post-op Back Pain Leg Pain HPI: Ortiz is a 52 y.o. female who is here today for: IPO XLIF, PLF, lami L3/4 DOS: 11/06/22, Dr. Serna Current symptoms: Pain is located in the back and right leg Numbness/tingling: denies. Weakness: denies. Abnormal bowel movements: diarrhea Signs of infection: rash, blisters, shaking Changes since surgery: some improvement in back pain New symptoms to include: right leg pain increased New vomiting and diarrhea that started yesterday - went to ED yesterday but did not want to wait and so he left without being seen Rash/blisters spreading over body, blisters in her mouth (showed up yesterday). Does report that the ones on her back have had some pus like drainage States she tried oral benadryl but that did not help Aggravating factors: constant Alleviating Factors: nothing Current Treatment: XLIF L3/4 Post-op meds: robaxin, percocet, gabapentin Homecare: No LSO: Yes Bone growth stimulator: No Review of Systems Allergies Allergen Reactions Other Other Tape adhesive, ET tube securing tape caused blisters and removed skin layers. Paper tape is ok Penicillins Rash and Swelling Other reaction(s): Unknown hives Other reaction(s): Anaphylaxis Iodinated Contrast Media Nausea And Vomiting Responds to Zofran if pre-administered 20m before dye Rash, vomiting Barium-Containing Compounds Bee Venom Other reaction(s): Chest tightness Hydrocodone Other reaction(s): Itching Latex Added based on information entered during case entry, please review and add reactions, type, and severity as needed Propoxyphene Other reaction(s): Rash Hydrocodone-Acetaminophen Itching and Rash Tylenol ok No current facility-administered medications for this visit. Current Outpatient Medications Medication Sig Dispense Refill aspirin 81 MG EC tablet Take 1 tablet (81 mg) by mouth daily. Take for 30 days total after your surgery. You may have extra tablets. 30 tablet 0 Cholecalciferol (Vitamin D) 125 MCG (5000 UT) capsule Take 1 capsule (125 mcg) by mouth daily. Takefor 3 total months 30 capsule 2 cyanocobalamin (Vitamin B-12) 500 MCG tablet Take 500 mcg by mouth in the morning. fluticasone (Flonase) 50 MCG/ACT nasal spray Administer 1 spray into affected nostril(s) in the morning. gabapentin (Neurontin) 300 MG capsule Take 1 capsule (300 mg) by mouth 3 times daily. 90 capsule 0 levETIRAcetam (Keppra) 1000 MG tablet Take 1,500 mg by mouth 2 times daily. Melatonin 10 MG capsule Take 10 mg by mouth Nightly as needed. methocarbamol (Robaxin) 750 MG tablet Take 2 tablets (1,500 mg) by mouth 3 times daily for 14 days.84 tablet 0 Misc. Devices misc by Does not apply route ORTHOFIX BONE GROWTH STIMULATOR Location: Cervical Dr. Rivers Dr. Serna Please coordinate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 [facility]- L4- S1 OOPHORECTOMY Right 05/04 laparoscopic TOTAL ABDOMINAL HYSTERECTOMY 04/2010 with USO with right partial nephrectomy (CA) - neg CT abd 09/06 TUBAL LIGATION 1999 UPPER GASTROINTESTINAL ENDOSCOPY 02/2019 Dr. Beckford - mild HH with Schiatzke's ring Family History Problem Relation Name Age of Onset Stroke Mother alive age 88 Asthma Mother nonsmoker High Blood Pressure Mother Diabetes Mother 80 insuliin Coronary artery disease Father 83 CABG age 83 COPD Father vocational examiner- fall 2021 age 87 No Known Problems Sister Asthma Sister Cervical cancer Sister age 38 No Known Problems Sister Uterine cancer Sister COPD Brother Coronary artery disease Brother age 50, smoker Prostate cancer Brother 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 Family history of colon cancer GERD (gastroesophageal reflux disease) History of renal carcinoma Insomnia Cervical spine degeneration Cerebral aneurysm, nonruptured PTSD (post-traumatic stress disorder) History of renal stone IBS (irritable bowel syndrome) Family history of coronary artery disease Depression, major, recurrent (HCC) Migraine DDD (degenerative disc disease), lumbar Conversion disorder Substance abuse (CMS/HCC) (HCC) Gastroparesis History of malignant melanoma Acute left lumbar radiculopathy Asthma Chronic low back pain Weakness of left lower extremity Awareness under anesthesia Difficult intravenous access Post-dural puncture headache LAURENCE (obstructive sleep apnea) Lumbar radiculopathy Status post lumbar spine surgery for decompression of spinal cord Review of Systems Respiratory: Positive for cough. Negative for shortness of breath. Cardiovascular: Negative for chest pain. Gastrointestinal: Negative for nausea and vomiting. Musculoskeletal: Positive for back pain. Skin: Positive for wound (surgical - drain in place). Neurological: Negative for dizziness. Right hand tingling Psychiatric/Behavioral: Negative for agitation. The patient is not nervous/anxious. Physical Exam Vitals and nursing note reviewed. Constitutional: Appearance: Normal appearance. HENT: Head: Atraumatic. Nose: Nose normal. Cardiovascular: Rate and Rhythm: Normal rate. Pulmonary: Effort: Pulmonary effort is normal. Musculoskeletal: General: Tenderness present. Comments: Drain in place Dressings c/d/i Skin: General: Skin is warm and dry. Neurological: Mental Status: She is alert and oriented to person, place, and time. Psychiatric: Mood and Affect: Mood normal. Behavior: Behavior normal. Lab Results Component Value Date CREATININE 0.60 10/30/2022 AST 15 10/30/2022 ALT 11 10/30/2022 Pain Management Adjuvants: 0700 --> 0700 11/06/2022 11/07/2022 Scheduled APAP 2 grams 3,000 mg Gabapentin 600 mg Lidocaine patches ON PRN Hydromorphone 4 mg 2.5 mg Methocarbamol 4,500 mg Oxycodone 5 mg 40 mg Assessment / Pain Management Plan: Acute Postsurgical Back pain Multimodal pain regimen: BLOCK: n/a Continue Acetaminophen 1000 mg po q6h scheduled ATC. Continue Lidocaine patch x 1. Cut and place as needed. Increase Oxycodone to 5 - 10 mg po q4h prn moderate to severe breakthrough pain. Continue Hydromorphone 0.25 mg - 0.5 mg IVP q4h prn moderate to severe breakthrough pain. Please utilize oral medications first. Continue home dose Gabapentin 300 mg TID ATC Continue Methocarbamol 1500 mg PO TID PRN. Degenerative disc disease S/p XLIF L3-L4 with ext of PSF L3-S1 w L3-L4 lami on 11/06/22. See #1 Opioid Tolerant Some degree, monthly prescriptions for Percocet from different providers LAURENCE Monitor in setting of opioid use Constipation At risk for opioid induced constipation Patient currently receiving opioids for pain management necessitating a bowel regimen. Recommend initiating scheduled Sennakot-S 8.6/50mg, 1 tablet PO BID. Would also recommend Milk of Magnesia 400mg/5ml, administer 30mL by mouth daily PRN. Opioid Use Acute: Expected to be short term post op pain, see #1 OARRS reviewed for past two years. (monthly opiate RX filled consistently, last filled: 09/23/22) Reviewed and educated patient on responsible use of opioids: after surgery, it can be normal to experience pain. If it is mild and you can move about without great difficulty or discomfort, you may not need to take pain medication. It is very important to take your pain medication only as needed. Avoiding excessive or unnecessary medication, will enable you to progress your activity each day to improve your muscle tone and movement, deep breathing, digestion, circulation and your body's abilityto heal itself. Patient pain is well controlled at this time on current pain regimen. We will sign off at this time. Please re-consult our service if patient's pain becomes uncontrolled. Thank you for inviting us toparticipate in the care of this patient. Plan discussed with patient who appears to understand and agrees. PAGING: The Acute Pain Service providers are available exclusively via Photos to [employer]. APS does not utilize pagers. * Bakari Harris MD - 11/08/2022 2:45 AM EDT Orthopaedic Spine Progress Note Name: Ortiz Jacobs Date of : 1970 Age: 52 y.o. Admission Date/Time: 11/06/2022 10:26 AM Assessment: Ortiz Jacobs is a 52 y.o. female S/P s/p XLIF L3-L4 with ext of PSF L3-S1 w L3-L4 lami on 11/06,improving Plan: -No plans for return to OR -Dressing to be left C/D/I for 7 days - replace PRN for saturation w/ tegaderm and 4x4s -dc drain <40 a shift, -CBC pending this am -Diet: CLD until flatus, then advance as tolerated -Reglan until BM -Colace -Decadron 6mg q6hr x 3 doses -Antibiotics x48hrs and drains removed -Robaxin 1500mg TID -ASA 81mg for 30 days starting POD # 1 -Multimodal pain control, APS consulted for pain management while hospitalized -WBAT; up w/ assistance -Brace, LSO PRN for comfort -PT/OT -okay without brace -No spinal precautions -NV checks q4 hrs -SCD's -Skin checks q shift -ok to d/c rodriguez when patient awake and alert -Activity restrictions: no lifting greater than 10-15lbs, avoid deep bending and/or twisting -Admit to H6 -Ortho primary Subjective: Reports improvement of the LBP but now has RLE pain that starts in her inner thigh and extends to her medial calf. No new numbness/tingling Objective Most Recent Vitals: Vitals: 11/07/22 1201 11/07/22 1657 11/07/22202411/08/22 0002 BP: 121/66 125/60 (!) 140/85 121/73 BP Location: Right arm Right arm Left arm Patient Position: Lying Lying Lying Pulse: 108 102 98 98 Resp: 18 18 Temp: 36.4 C (97.5 F) 36.5 C (97.7 F) 36.2 C (97.2 F) 36.1 C (97 F) TempSrc: Temporal Temporal Temporal Temporal SpO2: 97% 96% 95% 97% Weight: Height: Intake/Output last 24 hours: I/O last 3 completed shifts: In: 3690 (45.4 mL/kg) [P.O.:1440; I.V.:2000 (24.6 mL/kg); IV Piggyback:250] Out: 2500 (30.8 mL/kg) [Urine:2024 (0.7 mL/kg/hr); Drains:175; Blood:300] Weight: 81.2 kg I/O this shift: In: 500 [P.O.:500] Out: - Recent Labs 11/07/22 0614 WBC 16.7* HGB 13.4 HCT 41.8 MCV 95.9 Recent Labs 11/07/22 0043 K 4.3 Gen: No acute distress. Alert and oriented Chest: Normal respiratory effort. Unlabored breathing Heart:: Regular rate Abd: Soft, non-tender, non-distended Extremity: Upper Extremity Motor: Del Bi Tri WE WF Int FF Right 5 5 5 5 5 5 5 Left 5 5 5 5 5 5 5 Lower Extremity Motor: HF Q TA EHL Peroneals GSC Right 4- 4+ 5 4+ 5 5 Left 4+ 5 5 5 5 5 Upper extremity sensation to light touch: C5 C6 C7 C8 T1 Right Intact Intact Intact Intact Intact Left Intact Intact Intact Intact Intact Lower extremity sensation to light touch: L2 L3 L4 L5 S1 Right Intact Intact Intact Intact Intact Left Intact Intact Intact Intact Intact Wound: Dressing CDI. No evidence of hematoma. Mild TTP to incision site. Drain well positioned/working properly BAKARI HARRIS MD 11/08/2022 2:45 AM * Daiana Dutta, OT - 11/07/2022 12:59 PM EDT Occupational Therapy Facility/Department: Occupational Therapy Initial Evaluation NAME: Berenice Jacobs : 1970 Date of Service: 11/07/2022 Discharge Recommendations: Home with assist PRN, Home with Home health OT Assessment Performance deficits / Impairments: Decreased functional mobility , Decreased ADL status, Decreasedendurance, Decreased balance, Decreased high-level IADLs, Decreased posture Assessment: OT eval completed. Pt presents with above deficits limiting functional indep. Pt mostlylimited by pain. Pt safe to return home to dtr's house with assist and home therapy. Cont OT to maximize potential for indep with ADL and mobility. Prognosis: Good Decision Making: Low Complexity Exam: [facility] REQUIRES OT FOLLOW-UP: Yes Activity Tolerance Activity Tolerance: Patient limited by pain Patient Diagnosis(es): The primary encounter diagnosis was Status post lumbar spine surgery for decompression of spinal cord. Diagnoses of Preop examination and Status post spinal surgery were also pertinent to this visit. has a past medical history of Asthma, Cerebral aneurysm, nonruptured (2011), Cervical spine degeneration (2006), Colon cancer screening (2011), Condyloma, Conversion disorder (2015), Depression, major, recurrent (), Displacement of lumbar intervertebral disc (2015), Ex-smoker (2013), Family history of colon cancer (2011), Gastroparesis, GERD (gastroesophageal reflux disease), History of malignant melanoma, History of renal carcinoma (03/02), History of renal stone, IBS (irritable bowel syndrome), Insomnia, [place] (my[place] infarction) ([facility]) ([facility]) (2005), Migraine, Neuropathy (2018), PAF (paroxysmal atrial fibrillation) ([facility]) ([facility]), PTSD (post-traumatic stress disorder), PUD (peptic ulcer disease) (2011), Seizure disorder ([facility]) ([facility]), Sleep apnea, Stroke ([facility]) ([facility]) (08/2010), Substance abuse ([facility]) ([facility]) (06/2016), Surgical menopause, and Urinary incontinence. has a past surgical history that includes Total abdominal hysterectomy (04/2010); Tubal ligation (1999); Upper gastrointestinal endoscopy (02/2019); Cervical fusion (2006); Oophorectomy (Right, 05/04);Lumbar fusion (02/2016); Cholecystectomy (1986); Cystoscopy (04/30/11); Appendectomy (1987); Gastric s timulator implant surgery (11/25/2017); Arterial aneurysm repair (06/04); and Gastric stimulator implant surgery (01/2013). Restrictions Restrictions/Precautions Restrictions/Precautions: Weight Bearing, General Precautions, Surgical Protocols Required Braces or Orthoses?: Yes Lower Extremity Weight Bearing Restrictions Right Lower Extremity Weight Bearing: Weight Bearing As Tolerated Left Lower Extremity Weight Bearing: Weight Bearing As Tolerated Required Braces or Orthoses Spinal Other: LSO for comfort, okay without Position Activity Restriction Spinal Precautions: No Bending, No Lifting, No Twisting Other position/activity restrictions: hemovac, IV Vision/Hearing Vision: Within Functional Limits Hearing: Functional/adequate for paticipation in therapy Cognition/Orientation Overall Cognitive Status: [facility] Cognition Comment: 2/3 recall spine precautions and 3/3 with cue. Overall Orientation Status: Within Functional Limits Subjective General Chart Reviewed: Yes Patient Assessed for Rehabilitation Services: Yes Family / Caregiver Present: No Diagnosis: Pt admitted S/P XLIF L3-L4 with ext of PSF L3-S1 with L3-L4 lami 11/06/22. Subjective Subjective: Pt supine in bed, agreeable to OT eval. General Comments Comments: R hand dominant Pain Assessment Pain Score: 10 - Worst possible pain Pain Type: Surgical pain, Acute pain Pain Location: Back Pain Orientation: Mid Pain Descriptors: Aching, Sharp Pain Interventions: Repositioned, Ambulation/increased activity Social/Functional History Social/Functional History Lives With: (pt is going to stay with dtr at disch) Type of Home: House Home Layout: One level ADL Assistance: Independent Homemaking Assistance: Independent Homemaking Responsibilities: Yes Ambulation Assistance: Independent With device?: No Transfer Assistance: Independent Additional Comments: dtr able to assist 16/03 upon disch, no bed at dtr's home Objective Gross Assessment: Yes AROM: Within functional limits Strength: Generally decreased, functional Coordination: Within functional limits Tone: Normal Sensation: Intact (BUE) Observation/Palpation Posture: Good Observation: drain and incision intact Balance Sitting Balance: Supervision Standing Balance: Stand by assistance Functional Mobility Functional - Mobility Device: No device Activity: To/from bathroom Assist Level: Stand by assistance Functional Mobility Comments: slow gait, decreased step length, no LOB Toilet Transfers Toilet - Technique: Ambulating Equipment Used: Raised toilet seat with rails Toilet Transfer: Stand by assistance ADL Grooming: Supervision LE Dressing: Stand by assistance Toileting: Supervision Additional Comments: SBA to don/doff slipper socks using figure 4 method seated EOB. Supv toiletingin bathroom. Supv to wash hands standing at sink. Estimate SBA bathing and supv UE ADL. Bed mobility Rolling to Right: Stand by assistance Supine to Sit: Stand by assistance Sit to Supine: Minimal assistance Scooting: Stand by assistance Comment: log roll, assist for place BLE into bed due to pain Transfers Sit to stand: Stand by assistance Stand to sit: Supervision Sensation Overall Sensation Status: Impaired (pt reports abnormal sensation to R foot) Plan Times per Week: 5x Plan Weeks: 4 Current Treatment Recommendations: Strengthening, ROM, Balance Training, Functional Mobility Training, Endurance Training, Gait Training, Pain Management, Safety Education & Training, Patient/Caregiver Education & Training, Equipment Evaluation, Education, & procurement, Positioning, Self-Care / ADL, Home Management Training, Cognitive/Perceptual Training Safety Safety Devices in place: Yes Type of devices: Left in bed, Call light within reach, All fall risk precautions in place, Nurse notified Restraints Initially in place: No AM-PAC Score AM-PAC Inpatient Daily Activity Raw Score: 22 ADL Inpatient [facility] G-Code Modifier: CJ Goals Encounter Problems Encounter Problems (Active) Balance Demo good standing balance x10 mins during UE functional activity Start: 11/07/22 Expected End: 12/05/22 Bathing Patient will bathe body modif indep Start: 11/07/22 Expected End: 12/05/22 Dressings Lower Extremities Patient will dress lower body modif indep Start: 11/07/22 Expected End: 12/05/22 Grooming Patient will complete daily grooming tasks modif indep standing at sink Start: 11/07/22 Expected End: 12/05/22 Transfers Modif indep toilet transfer Start: 11/07/22 Expected End: 12/05/22 Education Education Given To: Patient Education Provided: OT Role, Plan of Care, Precautions, Transfer Training, ADL Adaptive Strategies Education Method: Verbal, Demonstration Barriers to Learning: None Education Outcome: Verbalized understanding, Demonstrated understanding Therapy Time Individual Co-treatment Time In 1127 Time Out 1142 Minutes 15 Goals and/or treatment plan was established in collaboration with patient/family/other representatives. Patient's Occupational Therapy Plan of Care supervision is transferred to [facility] Occupational Therapist. Daiana Dutta OTR/L * Petey Santiago, PT - 11/07/2022 10:50 AM EDT Physical Therapy Facility/Department: Physical Therapy Initial Evaluation NAME: Berenice Jacobs : 1970 Date of Service: 11/07/2022 Discharge Recommendations: Home with assist PRN PT Equipment Recommendations Equipment Needed: No Assessment Assessment: Pt s/p XLIF L3-L4 with ext of PSF L3-S1 w L3-L4 lami and presents with listed deficits.Pt required SBA for bed mobility, CGA for transfers and ambulation of 15' and 20' with FWW/IV pole.Pt has PHx of spinal surgery, and was indep [employer]. Pt is set to disch to dtr's house (all 1 level) and will have 24/7 assist. PT anticipates disch home with assist PRN, most limited by pain on eval. Performance Deficits/Impairments: Decreased functional mobility , Decreased strength, Decreased balance, Decreased endurance, Increased pain Decision Making: Low Complexity Requires PT Follow-Up: Yes Activity Tolerance Activity Tolerance: Patient limited by pain Patient Diagnosis(es): The primary encounter diagnosis was Status post lumbar spine surgery for decompression of spinal cord. Diagnoses of Preop examination and Status post spinal surgery were also pertinent to this visit. has a past medical history of Asthma, Cerebral aneurysm, nonruptured (2011), Cervical spine degeneration (2006), Colon cancer screening (2011), Condyloma, Conversion disorder (2015), Depression, major, recurrent (), Displacement of lumbar intervertebral disc (2015), Ex-smoker (2013), Family history of colon cancer (2011), Gastroparesis, GERD (gastroesophageal reflux disease), History of malignant melanoma, History of renal carcinoma (03/02), History of renal stone, IBS (irritable bowel syndrome), Insomnia, [place] (my[place] infarction) ([facility]) ([facility]) (2005), Migraine, Neuropathy (2018), PAF (paroxysmal atrial fibrillation) ([facility]) ([facility]), PTSD (post-traumatic stress disorder), PUD (peptic ulcer disease) (2011), Seizure disorder ([facility]) ([facility]), Sleep apnea, Stroke ([facility]) ([facility]) (08/2010), Substance abuse ([facility]) ([facility]) (06/2016), Surgical menopause, and Urinary incontinence. has a past surgical history that includes Total abdominal hysterectomy (04/2010); Tubal ligation (1999); Upper gastrointestinal endoscopy (02/2019); Cervical fusion (2006); Oophorectomy (Right, 05/04);Lumbar fusion (02/2016); Cholecystectomy (1986); Cystoscopy (04/30/11); Appendectomy (1987); Gastric s timulator implant surgery (11/25/2017); Arterial aneurysm repair (06/04); and Gastric stimulator implant surgery (01/2013). Restrictions Restrictions/Precautions Restrictions/Precautions: Weight Bearing, General Precautions, Surgical Protocols Required Braces or Orthoses?: Yes Lower Extremity Weight Bearing Restrictions Right Lower Extremity Weight Bearing: Weight Bearing As Tolerated Left Lower Extremity Weight Bearing: Weight Bearing As Tolerated Required Braces or Orthoses Spinal Other: LSO for comfort, okay without Position Activity Restriction Spinal Precautions: No Bending, No Lifting, No Twisting Other position/activity restrictions: hemovac, IV Vision/Hearing Vision: Within Functional Limits Hearing: Functional/adequate for paticipation in therapy Cognition/Orientation Overall Orientation Status: Within Functional Limits Subjective General Chart Reviewed: Yes Patient Assessed for Rehabilitation Services: Yes Additional Pertinent Hx: hx of CVA 2010, spinal sx 6 yrs ago Response To Previous Treatment: Not applicable Family / Caregiver Present: No Diagnosis: s/p XLIF L3-L4 with ext of PSF L3-S1 w L3-L4 lami Follows Commands: Within Functional Limits Subjective Subjective: Pt L sidelying, grimacing in pain, requesting to use bathroom, agreeable to PT eval. Social/Functional History Social/Functional History Lives With: (pt is going to stay with dtr at disch) Type of Home: House Home Layout: One level Ambulation Assistance: Independent Transfer Assistance: Independent Additional Comments: dtr able to assist 16/03 upon disch Objective Observation/Palpation Posture: Good AROM RLE (degrees) RLE AROM: WFL AROM LLE (degrees) LLE AROM : WFL Strength RLE Comment: at least 3+/5 in function Strength LLE Comment: at least 3+/5 in function Sensation Overall Sensation Status: Impaired (pt reports abnormal sensation to R foot) Bed mobility Rolling to Right: Stand by assistance Supine to Sit: Stand by assistance Scooting: Stand by assistance Comment: Pt completed log roll with HOB slightly elevated, cues for completion Transfers Sit to Stand: Contact guard assistance Stand to sit: Contact guard assistance Comment: Completed from EOB x1 to FWW, SBA from toilet to no device Ambulation Ambulation: Yes Ambulation 1 Surface 1: Level tile Device 1: Rolling walker Assistance 1: Contact guard Quality of Gait 1: slow alejandra Distance (ft) 1: 15 Ambulation 2 Surface 2: Level tile Device 2: (IV pole) Assistance 2: Close supervision Quality of Gait 2: slow alejandra Distance (ft) 2: 20 Balance Posture: Good Sitting - Static: Good, - Sitting - Dynamic: Good, - Standing - Static: Fair, + Standing - Dynamic: Fair Comments: pt completed dynamic seated tasks in recliner x6 mins with CGA to min A. Pt reporting increased fatigue and pain with effort. Pt wash BUE at sink x1 min with supv, no UE support. Pt indep with pericare Plan Times per Week: 5-7 Times per Day: Daily Plan Weeks: 2 Current Treatment Recommendations: Strengthening, Balance Training, Endurance Training, Functional Mobility Training, Transfer Training, Gait Training, Stair training, Equipment Evaluation, Education, & procurement, Safety Education & Training Safety Safety Devices Safety Devices in Place: Yes Type of Devices: Call light within reach, Left in chair, Nurse notified, All fall risk precatuions in place Outcomes Score AM-PAC Score AM-PAC Inpatient Mobility Raw Score: 16 Mobility Inpatient CMS G-Code Modifier: CK Goals Encounter Problems Encounter Problems (Active) Balance Patient will maintain dynamic standing balance for 5 minutes with independence in order to demonstrate decreased risk of falling. Start: 11/07/22 Expected End: 11/21/22 Mobility Patient will ambulate 150 feet with independence and least restrictive device in order to improve safety and independence with mobility. Start: 11/07/22 Expected End: 11/21/22 Transfers Patient will perform bed mobility with independence in order to improve independence and prepare for out of bed mobility. Start: 11/07/22 Expected End: 11/21/22 Patient will complete functional transfer with least restrictive device with independence in order to prepare for ambulation. Start: 11/07/22 Expected End: 11/21/22 Education Education Given To: Patient Education Provided: PT Role, Plan of Care, Precautions Education Provided Comments: spinal protocol, review of log roll technique Education Method: Demonstration, Verbal Barriers to Learning: None Education Outcome: Verbalized understanding Therapy Time Individual Co-treatment Time In 1004 Time Out 1028 Minutes 24 Timed Code Treatment Minutes: 8 Minutes (1xFA) Patient s Physical Therapy Plan of Care supervision is transferred to [facility] Rehab Department Physical Therapist. Goals and/or treatment plan was established in collaboration with patient/family/other representatives. PT wore mask and gloves throughout entire session with patient. Petey Santiago PT * jA Parekh MD - 11/07/2022 6:11 AM EDT Orthopaedic Spine Progress Note Name: Ortiz Jacobs Date of : 1970 Age: 52 y.o. Admission Date/Time: 11/06/2022 10:26 AM Assessment: Ortiz Jacobs is a 52 y.o. female POD#1 s/p XLIF L3-L4 with ext of PSF L3-S1 w L3-L4 lami Plan: -No plans for return to OR -Dressing to be left C/D/I for 7 days - replace PRN for saturation w/ tegaderm and 4x4s -dc drain <40 a shift, 75 overnight, pm drain check -CBC pending this am -Diet: CLD until flatus, then advance as tolerated -Reglan until BM -Colace -Decadron 6mg q6hr x 3 doses -Antibiotics x48hrs and drains removed -Robaxin 1500mg TID -ASA 81mg for 30 days starting POD # 1 -Multimodal pain control, APS consulted for pain management while hospitalized -WBAT; up w/ assistance -Brace, LSO PRN for comfort -PT/OT -okay without brace -No spinal precautions -NV checks q4 hrs -SCD's -Skin checks q shift -ok to d/c rodriguez when patient awake and alert -Activity restrictions: no lifting greater than 10-15lbs, avoid deep bending and/or twisting -Admit to H6 -Ortho to follow, please let us know if questions/concerns Subjective: Reports significant pain to her lower back since her surgery that is elicited by movement, she feels more comfortable on lateral decubitus position. Denies any new weakness/numbness/tingling to her lower extremities. No flatus yet. No chest pain/SOB. Objective Most Recent Vitals: Vitals: 11/06/22 2000 11/06/22 2103 11/07/22 0144 11/07/22 0607 BP: 134/71 136/76 135/62 BP Location: Left arm Left arm Patient Position: Lying Lying Pulse: 103 105 (!) 115 109 Resp: 18 16 18 Temp: 36.4 C (97.6 F) 36.8 C (98.2 F) 36.8 C (98.2 F) TempSrc: Temporal Temporal Temporal SpO2: 100% 97% 95% 97% Weight: Height: Intake/Output last 24 hours: I/O last 3 completed shifts: In: 2250 (27.7 mL/kg) [I.V.:2000 (24.6 mL/kg); IV Piggyback:250] Out: 425 (5.2 mL/kg) [Urine:125 (0 mL/kg/hr); Blood:300] Weight: 81.2 kg I/O this shift: In: - Out: 975 [Urine:900; Drains:75] Recent Labs 11/06/22 1040 WBC 9.9 HGB 15.4 HCT 46.2 MCV 92.9 Recent Labs 11/07/22 0043 K 4.3 Gen: No acute distress. Alert and oriented Chest: Normal respiratory effort. Unlabored breathing Heart:: Regular rate Abd: Soft, non-tender, non-distended Extremity: Upper Extremity Motor: Del Bi Tri WE WF Int FF Right 5 5 5 5 5 5 5 Left 5 5 5 5 5 5 5 Lower Extremity Motor: HF Q TA EHL Peroneals GSC Right 4- 4+ 5 4+ 5 5 Left 4+ 5 5 5 5 5 Upper extremity sensation to light touch: C5 C6 C7 C8 T1 Right Intact Intact Intact Intact Intact Left Intact Intact Intact Intact Intact Lower extremity sensation to light touch: L2 L3 L4 L5 S1 Right Intact Intact Intact Intact Intact Left Intact Intact Intact Intact Intact Wound: Dressing CDI. No evidence of hematoma. Mild TTP to incision site. Drain well positioned/working properly, overnight output was 75 cc JA PAREKH MD 11/07/2022 6:11 AM * Bakari Harris MD - 11/07/2022 1:12 AM EDT Images from the original note were not included. Ortho to bedside over report that patient is having continued pain around her surgical incision. Upon evaluation, patient pointed to numerous areas around her Silver dressing she stated were painful as well as along the entire incision. States that this is a burning and throbbing pain and her Oxy and Dilaudid have not touched the pain. Endorses mild paresthesias to pubis but denies elsewhere. Denies any new weakness. Still has Rodriguez catheter in place Upon physical exam, surgical site dressing is clean dry and intact without any signs of surroundingerythema or irritation from adhesive. Drain also intact without any increase in drainage. Overall benign appearance pictured below. Plan: I explained that if patient continues to have midline incision pain we can take bandage down in themorning and replace with new Silver dressing. Patient and nurse updated on plan and are agreeable. -No plans for return to OR -Dressing to be left C/D/I for 7 days - replace PRN for saturation w/ tegaderm and 4x4s -dc drain <40 a shift -CBC x 2 -Diet: CLD until flatus, then advance as tolerated -Reglan until BM -Colace -Decadron 6mg q6hr x 3 doses -Antibiotics x48hrs and drains removed -Robaxin 1500mg TID -ASA 81mg for 30 days starting POD # 1 -Multimodal pain control -WBAT; up w/ assistance -Brace, LSO PRN for comfort -PT/OT -okay without brace -No spinal precautions -NV checks q4 hrs -SCD's -Skin checks q shift -ok to d/c rodriguez when patient awake and alert -Activity restrictions: no lifting greater than 10-15lbs, avoid deep bending and/or twisting -Admit to H6 -Ortho to follow Bakari Harris MD Orthopaedic Surgery PGY2 11/07/2022 1:21 AM documented in this [facility]03-20-2023 Note* Care Coordination - Shahrzad Salgado RN - 11/10/2022 2:05 PM EDT Pt to be discharged to home (at her daughter's house) today. She has been provided with hospital bed and bedside commode as requested. She has been set up with [facility] for PT/OT services. She denies anyother needs from [facility]. [id number]* Care Coordination - Shahrzad Salgado RN - 11/10/2022 2:05 PM EDT Pt to be discharged to home (at her daughter's house) today. She has been provided with hospital bed and bedside commode as requested. She has been set up with [facility] for PT/OT services. She denies anyother needs from tcc. [id number] Miscellaneous Notes* Care Coordination - Shahrzad Salgado RN - 11/10/2022 2:05 PM EDT Pt to be discharged to home (at her daughter's house) today. She has been provided with hospital bed and bedside commode as requested. She has been set up with [facility] for PT/OT services. She denies anyother needs from tcc. * Care Coordination - Unknown Case Management - 11/10/2022 10:20 AM EDT Patient Choice Patient Name: ORTIZ JACOBS Date of : 1970 All Providers Sent Referral Name: [facility] Phone: [phone] Address: [address] [place] [address] * Home Care - Milli Tovar RN - 11/10/2022 10:12 AM EDT Start PACC Note Home Health Referral Educated patient on Home Care and services available. Patient offered choice of available HHC and agreeable to PT, OT services with [facility]. Care Types: None Isolation Precautions: No active isolations Social Determinates of Health: Tobacco Use: High Risk Smoking Tobacco Use: Every Day Smokeless Tobacco Use: Never Passive Exposure: Not on file Social History Substance and Sexual Activity Alcohol Use No Alcohol/week: 0.0 standard drinks Social History Substance and Sexual Activity Drug Use No Does the patient have any financial resource strain? No Does the patient have any food insecurities? No Does the patient have any housing instabilities? No If any of the above is noted as yes - consider a SLIDE FORMING MACHINE OPERATOR evaluation once the patient returns home. START PATIENT REGISTRATION INFORMATION Order Information Order Signing Physician: Kenny Serna MD Service Ordered RN ?: No Service Ordered PT ?: Yes Service Ordered OT ?: Yes Service Ordered ST ?: No Service Ordered SLIDE FORMING MACHINE OPERATOR?:No Service Ordered MEDICAL SOCIAL WORKER?: No Following Physician: Dr Kenny Serna Following Physician Overseeing Physician: (Required for Residents only) Agreeable to Follow? Yes Date/Time of Call 11/10/22 10:12 AM Care Coordination SOC Call from [facility] Required?: Yes Same Day SOC?: No Primary Care Physician: Amandeep Loredo DO Primary Care Physician Primary Care Physician Address: [address] [place] [address] Visit Instructions: N/A Service Discharge Location Type: Home with Home Health Care Service Facility Name: N/A Service Floor Facility: N/A Service Room No: N/A Demographics Patient Last Name: Godfrey Patient First Name: Ortiz Language/Communication Barrier: N/A Service Address: [address] [place] [address] Service City: [place] Service ST: [place] Service ZIP: [address] Service Other phone numbers: Telephone Information: Emergency Contact: Extended Emergency Contact Information Primary Emergency Contact: Esau Miller Relation: Other Admission Information Admit Date: 11/06/2022 Patient status at discharge: Inpatient Caregiver Information Caregiver First Name: Lucero Caregiver Last Name: N/A Caregiver Relationship to Patient dtr Caregiver Phone Number: N/A Caregiver Notes: N/A [employer] List No END PATIENT REGISTRATION INFORMATION Pt Home Health goal home Admitting Diagnosis Radiculopathy, lumbar region [M54.16] Spinal stenosis of lumbar region [M48.061] Spondylolisthesis, lumbar region [M43.16] Other intervertebral disc degeneration, lumbar region [M51.36] Lumbar radiculopathy [M54.16] Status post lumbar spine surgery for decompression of spinal cord [Z98.890] COVID Status 1. Do you have any upper respiratory symptoms (cough, SOB, Fever)? No 2. Have you been exposed to anyone with COVID-19 Virus? No Answer only if pending or positive for COVID-19? 1. Agreeable to wear PPE at each visit? N/A 2. Is the hospital supplying them with PPE upon Discharge? N/A Start PACC Summary General Report/ Additional Comments Wound Care/Dressing Changes - Surgical Incisions leave open to air, cleanse daily with mild soap and warm water, pat dry, no lotion or powders on incision. - If there is wound please remove the dressing 48 hours after surgery. Respiratory Care: - Cough and Deep Breath: Use incentive spirometry 10 times ever hours while awake for 2 weeks. Additional Orders: - Vital signs per Home Health Protocol. Activity/Weight Bearing: - Up with assistance: up in chair for all meals, ambulate 3-4 times per day. - Stretching exercises per PT discharges instructions. - No Lifting, twisting, pushing, pulling objects, or bending back. Discharge Date: 11/10/2022 Referral Source-PACC: (Hospital/Unit): [facility] / H-[id number]/H-6127 A End PACC Note * Home Care - Milli Tovar RN - 11/10/2022 10:01 AM EDT Quality Assurance Monitor Final following case for Discharge Needs. Pt agreeable for home care PT/OT services at discharge. Per Pt, hospital bed and BSC will be today to dtr's home. Dtr's address for services: [facility] [place] [address] Pt'cell - [phone] No other needs voiced. [facility], Jocelyn, updated. * Care Coordination - Shahrzad Salgado RN - 11/07/2022 12:32 PM EDT Care Managment Initial Assessment Date: 11/07/2022 Patient Name: Ortiz Jacobs : 1970 Patient Information Source of Information: Patient Cognition/Language: WFL - Within Functional Limits Permission given to speak with patient representative phlebotomy services/caregiver as indicated: Confirmation of Payer with patient/family: Yes Payer Name: [employer] medicare : No Confirmation of Primary Care Physician: Confirmed PCP Name: Gertrude Seen in last 2 years?: Yes Primary Caregiver: Self If assistance needed, confirmed caregiver ready, willing and able to care for patient at discharge: Confirmed with: Living Arrangements Current Residence: House Number of Floors 2 Number of Entry Steps: 5 or more Bed/Bath Levels: Facility: Facility Name: Plan to Return: Lives with: Alone Support Systems: Children, Family members, Friends/neighbors Activities of Daily Living Ambulation: Independent Bathing/Dressing: Independent Elimination/Continence/Toileting: Independent Feeding: Independent Who Assists with Activities of Daily Living: Instrumental Activities of Daily Living Prescription Coverage: Yes Pharmacy Used: [facility] Medication Management: Independent Transportation/Shopping: Independent Transportation Mode: Car Needs Assistance with Transportation at Discharge: No Meal Preparation: Independent Laundry/Cleaning: Independent Finances/Bill Paying: Independent Communication: Independent Types of Care Services/Equipment Utilized Care Services: Dialysis Type: Durable Medical Equipment: Patient's Goal/Discharge Plan Patient expects to be discharged to: home with daughter Discharge Planning Actions: Continue to follow Patient's Choice Rights and [employer] and Collaborative Relationships Disclosed as Indicated for Post-Acute Care: Interdisciplinary Team Engagement: Social Work Referral for: Additional Information: 52 yo female admitted to H6 s/p surgery on 11/06/22: XLIF, PSF and laminectomy. Surgical drain to back. On iv clindamycin and rodriguez cath. PT/OT evals ordered. Met with pt; explained role of tcc. Pt lives alone but will be staying with her daughter at discharge. Pt is independent adls and uses no dme. She denies any issues paying for rx medications. Pt is requesting a hospital bed and bedside commode for when she goes to stay with her daughter. Message sent to covering ortho resident to see if hecould place these dme orders. PT recommending home with assist. Anticipate dc to daughter's home when pain controlled and pt medically stable. Shahrzad Salgado RN * Perioperative Nursing Note - Brenda Wilson RN - 11/06/2022 7:20 PM EDT Yasmine DUFFY called nai Cifuetnes and given update Esau to wait for pt in her room [id number] * Op Note - Kenny Serna MD - 11/06/2022 1:40 PM EDT PROCEDURE NOTE Name: Ortiz Jacobs Date of : 1970 Age: 52 y.o. Primary Care Physician: Amandeep Loredo DO Admission Date/Time: 11/06/2022 10:26 AM Date of Procedure: 09/08/22 Attending Surgeon: Kenny Serna MD Paper Twister: Dona CABALLERO The first-geriatric assistant (PA, METAL ROOFING MECHANIC, RADON INSPECTOR, GITA, etc) was critical to all steps of the operation: these include but are not limited to spine exposure, decompression of the neurologic elements, possible placement of hardware in addition to deep and superficial wound closure. I understand that section 1842(b)(7)(D) of the Social Security Act generally prohibits Medicare physician fee schedule payment for theservices of assistants at surgery in teaching hospitals when qualified residents are available to furnish such services. I certify that the services for which payment is claimed were medically necessary and that no qualified resident was available to perform the services. I further understand that these services are subject to post-payment review by the Medicare carrier. PREOPERATIVE DIAGNOSES: 1. L3-L4 stenosis with neurogenic claudication. 2. Previous L4-S1 fusion 3. L3-L4 colllapse and retrolisthesis. 4. Flatback syndrome 5. Mechanical back pain. 6. Lumbar radiculopathy. POSTOPERATIVE DIAGNOSES: Same as above. PROCEDURES PERFORMED: 1. L3-L4 arthrodesis via anterior interbody technique. 2. L3-L4 application of intervertebral biomechanical device. 3. L3-L4 laminectomy, partial facetectomy, partial foraminotomy, with decompression of cauda equinaand nerve roots. 4. Posterior column osteotomy, L3/L4 5. L3-L4 posterior posterolateral arthrodesis. 6. L3-L4 posterior non-segmental instrumentation. 7. Autograft for spinal surgery. 8 Allograft for spinal surgery, morselized Attrax. 9. Use of operative neuromonitoring. 10. Stereotactic computer-assisted (navigational) procedure; spinal (BeatSwitch spin Intraoperative CT Scanner Navigation) ANESTHESIA: General endotracheal anesthesia MEDICATIONS: 2 grams of Ancef ESTIMATED BLOOD LOSS: 300 mL. URINE OUTPUT: See anesthesia. SPECIMENS SUBMITTED: None. IMPLANTS: 1. NuVasive Modulus titanium cage 2. NuVasive Reline pedicle screws. 3. Allograft: Morselized Attrax FINDINGS: 1. Significant lumbar degeneration was seen at each of operative levels including disk degeneration, disk protrusion, osteophyte formation, ligamentum flavum hypertrophy as well as facet hypertrophy contributing to spinal stenosis and spondylolisthesis. 2. The anterior and posterior spinal reconstruction was necessary to stabilize the L3-L4 segment inthe setting of spinal instability. 3. Intraoperative neuromonitoring was performed throughout the case and was consistent with lack ofany neurologic compromise before, during or after the operation. Gatica psoas retractor time of 8 minutes. INDICATIONS FOR PROCEDURE: Ortiz Jacobs is a 52 y.o. y.o.-year-old female patient, who has been followed by myself in the orthopedic spine clinic for their spinal condition. The clinical exam has been consistent with mechanical back pain and lumbar radicular symptoms that have failed to improve with conservative management. Based on the findings above, the patient elected to proceed with surgery as outlined has obtained preoperative medical clearance. We specifically discussed the risks and benefits of the trans-psoas approach for the anterior interbody fusion. The risks include but are not limited to new anterior thigh pain/numbness/tingling, hipflexion weakness, quadriceps weakness, foot drop, lumbar plexus injury, blood vessel injury, incisional hernia/pain, hematoma, bowel/intestinal injury and/or potential injury to local structures. After careful consideration and understanding of the risks, the patient consented to the procedure. CONSENT: The risks and benefits of surgery were discussed with the patient including but not limited to bleeding, possible need for transfusion, infection, blood vessel injury, blood vessel and lung clots, lymphatic injury, epidural hematoma, nerve injury, paralysis, dural spinal fluid leakage, urologic dysfunction, sexual dysfunction, surgical instrument failure, spinal instability, spinal pseudoarthrosis vertebral body fracture, disk herniation, reherniation, need for further surgery, esophageal injury, difficulty swallowing, hoarseness or loss of vocalization, syncope, dizziness, headache, blindness, renal failure, pneumonia, respiratory or cardiac arrest, stroke, coma and even . It was well understood by the patient that the outcome of complex spinal surgery such as this couldnot be guaranteed. All questions were answered to the patient's satisfaction, and the patient expressed excellent understanding of the above concepts. Based on our discussion, the patient elected to proceed with surgery as outlined above and informed consent was obtained. PROCEDURE IN DETAIL: Ortiz Jacobs was brought to the holding area at [facility]. In the holding area, the patient was seen and examined by myself and the surgical site was marked with my initials using an indelible pen. Thepatient was then transferred to the OR by the nursing staff. In the OR, the patient was given a dose of IV antibiotics within an hour of surgical start time. The patient was then transferred on to the OR table and all pressure points were well padded. General anesthetic was induced and a timeout procedure was performed. Neuromonitoring leads were placed on the patient and a Rodriguez catheter was inserted under sterile technique. SCDs were also placed on the bilateral calves. The patient was then placed in the lateral decubitus position with the right side up. The flank was then prepped and draped in usual sterile fashion. An oblique incision was then made over the flank using A scalpel and blunt dissection was used to gain access to the anterior retroperitoneal space. The lateral retractor was placed on to the L3-L4 interspace with live EMG guidance. Once the cannula was docked appropriately, no evidence of the lumbar plexus was noted either within the working space or anterior to it. I then proceeded with the en bloc decompression of L3-L4. Using combination of the long-handled scalpel, Esteban elevators, disk tiago, pituitary rongeurs, and spinal curettes, decompression of the disk space was performed. The contralateral annulus was released using Esteban elevator and the endplateswere cleared of remaining cartilage using rasps and currettes in preparation for fusion. I then performed the application of intervertebral biomechanical device at L3- L4. Trial cages were inserted. The appropriate implant fit was confirmed with feel and fluoroscopic imaging. The appropriate size implant was selected. The bone graft was then placed into the cage and the final implant was then impacted into the L3-R5umypevkezs under fluoroscopic guidance to complete the application of the intervertebral biomechanical device. Any remaining bone graft material was placed in the exposed vertebral interspace at L3-L4 to complete the arthrodesis via anterior interbody technique at this level. The wound was then copiously irrigated and the retractor was removed from the lateral spine. Any minimal bleeding was cauterized with the bipolar and the wound was closed with a combination of Vicrylsuture. At the conclusion of the anterior portion of the operation, all sponge, needle and instrument counts were deemed to be correct. A sterile dressing was placed over the flank incision. The drapes were removed from the patient and the Margarito four-post operating room table was broughtin. The patient was then turned prone on the Margarito frame and all pressure points were well padded. The back was then re-prepped and draped in usual sterile fashion. Next, the posterior elements were exposed from L3-L4. The previous hardware was visualized with respect to the L4 pedicle screw to confirm the operative level. A spinous process clamp was placed in the spine and the Siemens intraoperative CT scanner was brought to the operative field. Using navigation assistance in accordance with anatomic freehand landmarks, bilateral pedicle screws were placed at L3. I then turned my attention to the decompression. Using navigation assistance, bilateral complete facet resections were performed at the L3 and L4 level to perform a laminectomy in addition to a posterior column osteotomy. The laminectomy and osteotomy was necessary given the presence of flatback syndrome and significant lateral recess stenosis requiring complete facet resection. At the conclusionof the decompression, the L3 and L4 nerve roots were visualized bilaterally and felt to be free of compressive material. I then performed a posterolateral fusion of L3 and L4. The posterior elements of L3 and L4 were decorticated using high-speed bur until bleeding surface could be obtained. Allograft was then placed onto the decorticated posterior elements of L3 and L4 to achieve posterolateral fusion. The appropriate size paok was selected, placed in the tulip heads of the screws and then locked intoplace with a torque wrench under compression. Final x-rays were taken confirming adequate placement of the interbody graft as well as the posterior instrumentation. At the conclusion of the operation, all sponge, needle and instrument counts were deemed to be correct. The wounds were closed in layers using Vicryl suture. The skin was then dressed with Dermabond and sterile bandages. The patient was then turned back supine onto their hospital bed, awakened from the anesthetic and transferred to the postanesthesia care unit awake and in stable condition. Signed: Kenny Serna MD * Brief Op Note - Ha Carcamo PA-C - 11/06/2022 1:40 PM EDT Date: 11/06/2022 Location: [facility] OR Name: Berenice Jacobs, : 1970, Diagnosis Pre-op Diagnosis * Radiculopathy, lumbar region [M54.16] * Spinal stenosis of lumbar region [M48.061] * Spondylolisthesis, lumbar region [M43.16] * Other intervertebral disc degeneration, lumbar region [M51.36] Post-op Diagnosis * Radiculopathy, lumbar region [M54.16] * Spinal stenosis of lumbar region [M48.061] * Spondylolisthesis, lumbar region [M43.16] * Other intervertebral disc degeneration, lumbar region [M51.36] Procedures ANTERIOR LUMBAR INTERBODY FUSION L3/4 VIA RETROPERITONEAL APPROACH POSTERIOR LATERAL FUSION WITH INSTRUMENTATION L3/L4 LUMBAR L3/L4 LAMINECTOMY 03253 - RI ARTHRD ANT INTERBODY MIN DSC LUMBAR POSTERIOR LUMBAR LAMINECTOMY FACETECTOMY FORAMINOTOMY AND DECOMPRESSION 09634 - RI SRINIVASAN FACETECTOMY & FORAMOTOMY 1 VRT SGM LUMBAR RI INSJ BIOMCHN DEV INTERVERTEBRAL DSC SPC W/ARTHRD [38915] RI POSTERIOR SEGMENTAL INSTRUMENTATION 3-6 VRT SEG [73583] RI ALLOGRAFT FOR SPINE SURGERY ONLY MORSELIZED [] RI AUTOGRAFT SPINE SURGERY LOCAL FROM SAME INCISION [] RI SRINIVASAN FACETECTOMY & FORAMOTOMY 1 VRT SGM LUMBAR [55899] RI SRINIVASAN FACETECTOMY&FORAMOT 1 VRT SGM EA ADDL SGM [15953] RI STEREOTACTIC COMPUTER ASSISTED PX SPINAL [21847] Surgeons * Kenny Serna - Primary Procedure Summary Anesthesia: General ASA: III Estimated Blood Loss: 300 mL Drains: Closed/Suction Drain Inferior;Midline Back (Active) Implants Type Name Action Serial No. Spinal Hardware CAGE MODULUS XL [id number] 10DEG - [id number] Implanted Bone PUTTY ATTRAX 10CC - [id number] Implanted Spinal Hardware SCREW RELINE-O 2S PA 6.5X50 - [id number] Implanted Spinal Hardware SCREW RELINE-O 2S PA 8.5X50 - [id number] Implanted Spinal Hardware SCREW RELINE-O 2S PA 5.5X50 - [id number] Implanted Spinal Hardware PAKO RELINE-O TI 5.5X55 LORD - [id number] Implanted Spinal Hardware PAKO RELINE-O TI 5.5X40 LORD - [id number] Implanted Spinal Hardware SCREW RELINE OPEN [place] 5.5 - [id number] Implanted Spinal Hardware CONN RELINE-O 5-6/5-6 O-H ROT - [id number] Implanted Staff: Record Press Operator: Earl Burrell RN Scrub Person: Aaron Hernandez MA; Dianne Ayala Findings: please see op note Complications: None; patient tolerated the procedure well. Specimens Collected: Order Name Source Comment Collection Info Order Time POTASSIUM WITH MG REFLEX For patients on dialysis to draw potassium day of surgery 11/06/2022 10:39 AM PROTHROMBIN TIME If patient on coumadin within 4 days prior. 11/06/2022 10:39 AM CBC WITH AUTO DIFFERENTIAL Blood, Venous Collected By: Sneha Gross RN 11/06/2022 10:39 AM Wound Class: Class I: Clean Blood Products: None Prophylactic Antibiotics: Procedure appropriate prophylactic antibiotic(s) given within 1 hour of surgical incision (two hours if receiving Vancomycin or flouroquinolone) Plan -No plans for return to OR -Dressing to be left C/D/I for 7 days - replace PRN for saturation w/ tegaderm and 4x4s -dc drain <40 a shift -CBC x 2 -Diet: CLD until flatus, then advance as tolerated -Reglan until BM -Colace -Decadron 6mg q6hr x 3 doses -Antibiotics x48hrs and drains removed -Robaxin 1500mg TID -ASA 81mg for 30 days starting POD # 1 -Multimodal pain control -WBAT; up w/ assistance -Brace, LSO PRN for comfort -PT/OT -okay without brace -No spinal precautions -NV checks q4 hrs -SCD's -Skin checks q shift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 L3-L4 posterior non-segmental instrumentation. 7. Autograft for spinal surgery. 8 Allograft for spinal surgery, morselized Attrax. 9. Use of operative neuromonitoring. 10. Stereotactic computer-assisted (navigational) procedure; spinal (BeatSwitch spin Intraoperative CT Scanner Navigation) ANESTHESIA: General endotracheal anesthesia MEDICATIONS: 2 grams of Ancef ESTIMATED BLOOD LOSS: 300 mL. URINE OUTPUT: See anesthesia. SPECIMENS SUBMITTED: None. IMPLANTS: 1. NuVasive Modulus titanium cage 2. NuVasive Reline pedicle screws. 3. Allograft: Morselized Attrax FINDINGS: 1. Significant lumbar degeneration was seen at each of operative levels including disk degeneration, disk protrusion, osteophyte formation, ligamentum flavum hypertrophy as well as facet hypertrophy contributing to spinal stenosis and spondylolisthesis. 2. The anterior and posterior spinal reconstruction was necessary to stabilize the L3-L4 segment inthe setting of spinal instability. 3. Intraoperative neuromonitoring was performed throughout the case and was consistent with lack ofany neurologic compromise before, during or after the operation. Gatica psoas retractor time of 8 minutes. INDICATIONS FOR PROCEDURE: Ortiz Jacobs is a 52 y.o. y.o.-year-old female patient, who has been followed by myself in the orthopedic spine clinic for their spinal condition. The clinical exam has been consistent with mechanical back pain and lumbar radicular symptoms that have failed to improve with conservative management. Based on the findings above, the patient elected to proceed with surgery as outlined has obtained preoperative medical clearance. We specifically discussed the risks and benefits of the trans-psoas approach for the anterior interbody fusion. The risks include but are not limited to new anterior thigh pain/numbness/tingling, hipflexion weakness, quadriceps weakness, foot drop, lumbar plexus injury, blood vessel injury, incisional hernia/pain, hematoma, bowel/intestinal injury and/or potential injury to local structures. After careful consideration and understanding of the risks, the patient consented to the procedure. CONSENT: The risks and benefits of surgery were discussed with the patient including but not limited to bleeding, possible need for transfusion, infection, blood vessel injury, blood vessel and lung clots, lymphatic injury, epidural hematoma, nerve injury, paralysis, dural spinal fluid leakage, urologic dysfunction, sexual dysfunction, surgical instrument failure, spinal instability, spinal pseudoarthrosis vertebral body fracture, disk herniation, reherniation, need for further surgery, esophageal injury, difficulty swallowing, hoarseness or loss of vocalization, syncope, dizziness, headache, blindness, renal failure, pneumonia, respiratory or cardiac arrest, stroke, coma and even . It was well understood by the patient that the outcome of complex spinal surgery such as this couldnot be guaranteed. All questions were answered to the patient's satisfaction, and the patient expressed excellent understanding of the above concepts. Based on our discussion, the patient elected to proceed with surgery as outlined above and informed consent was obtained. PROCEDURE IN DETAIL: Ortiz Jacobs was brought to the holding area at [facility]. In the holding area, the patient was seen and examined by myself and the surgical site was marked with my initials using an indelible pen. Thepatient was then transferred to the OR by the nursing staff. In the OR, the patient was given a dose of IV antibiotics within an hour of surgical start time. The patient was then transferred on to the OR table and all pressure points were well padded. General anesthetic was induced and a timeout procedure was performed. Neuromonitoring leads were placed on the patient and a Rodriguez catheter was inserted under sterile technique. SCDs were also placed on the bilateral calves. The patient was then placed in the lateral decubitus position with the right side up. The flank was then prepped and draped in usual sterile fashion. An oblique incision was then made over the flank using A scalpel and blunt dissection was used to gain access to the anterior retroperitoneal space. The lateral retractor was placed on to the L3-L4 interspace with live EMG guidance. Once the cannula was docked appropriately, no evidence of the lumbar plexus was noted either within the working space or anterior to it. I then proceeded with the en bloc decompression of L3-L4. Using combination of the long-handled scalpel, Esteban elevators, disk tiago, pituitary rongeurs, and spinal curettes, decompression of the disk space was performed. The contralateral annulus was released using Esteban elevator and the endplateswere cleared of remaining cartilage using rasps and currettes in preparation for fusion. I then performed the application of intervertebral biomechanical device at L3- L4. Trial cages were inserted. The appropriate implant fit was confirmed with feel and fluoroscopic imaging. The appropriate size implant was selected. The bone graft was then placed into the cage and the final implant was then impacted into the L3-[id number] under fluoroscopic guidance to complete the application of the intervertebral biomechanical device. Any remaining bone graft material was placed in the exposed vertebral interspace at L3-L4 to complete the arthrodesis via anterior interbody technique at this level. The wound was then copiously irrigated and the retractor was removed from the lateral spine. Any minimal bleeding was cauterized with the bipolar and the wound was closed with a combination of Vicrylsuture. At the conclusion of the anterior portion of the operation, all sponge, needle and instrument counts were deemed to be correct. A sterile dressing was placed over the flank incision. The drapes were removed from the patient and the Margarito four-post operating room table was broughtin. The patient was then turned prone on the Margarito frame and all pressure points were well padded. The back was then re-prepped and draped in usual sterile fashion. Next, the posterior elements were exposed from L3-L4. The previous hardware was visualized with respect to the L4 pedicle screw to confirm the operative level. A spinous process clamp was placed in the spine and the Siemens intraoperative CT scanner was brought to the operative field. Using navigation assistance in accordance with anatomic freehand landmarks, bilateral pedicle screws were placed at L3. I then turned my attention to the decompression. Using navigation assistance, bilateral complete facet resections were performed at the L3 and L4 level to perform a laminectomy in addition to a posterior column osteotomy. The laminectomy and osteotomy was necessary given the presence of flatback syndrome and significant lateral recess stenosis requiring complete facet resection. At the conclusionof the decompression, the L3 and L4 nerve roots were visualized bilaterally and felt to be free of compressive material. I then performed a posterolateral fusion of L3 and L4. The posterior elements of L3 and L4 were decorticated using high-speed bur until bleeding surface could be obtained. Allograft was then placed onto the decorticated posterior elements of L3 and L4 to achieve posterolateral fusion. The appropriate size pako was selected, placed in the tulip heads of the screws and then locked intoplace with a torque wrench under compression. Final x-rays were taken confirming adequate placement of the interbody graft as well as the posterior instrumentation. At the conclusion of the operation, all sponge, needle and instrument counts were deemed to be correct. The wounds were closed in layers using Vicryl suture. The skin was then dressed with Dermabond and sterile bandages. The patient was then turned back supine onto their hospital bed, awakened from the anesthetic and transferred to the postanesthesia care unit awake and in stable condition. Signed: Kenny Serna MD [id number] Note* Brief Op Note - Ha Carcamo PA-C - 11/06/2022 1:40 PM EDT Date: 11/06/2022 Location: [facility] OR Name: Berenice Jacobs : 1970, Diagnosis Pre-op Diagnosis * Radiculopathy, lumbar region [M54.16] * Spinal stenosis of lumbar region [M48.061] * Spondylolisthesis, lumbar region [M43.16] * Other intervertebral disc degeneration, lumbar region [M51.36] Post-op Diagnosis * Radiculopathy, lumbar region [M54.16] * Spinal stenosis of lumbar region [M48.061] * Spondylolisthesis, lumbar region [M43.16] * Other intervertebral disc degeneration, lumbar region [M51.36] Procedures ANTERIOR LUMBAR INTERBODY FUSION L3/4 VIA RETROPERITONEAL APPROACH POSTERIOR LATERAL FUSION WITH INSTRUMENTATION L3/L4 LUMBAR L3/L4 LAMINECTOMY - RI ARTHRD ANT INTERBODY MIN DSC LUMBAR POSTERIOR LUMBAR LAMINECTOMY FACETECTOMY FORAMINOTOMY AND DECOMPRESSION 31058 - RI SRINIVASAN FACETECTOMY & FORAMOTOMY 1 VRT SGM LUMBAR RI INSJ BIOMCHN DEV INTERVERTEBRAL DSC SPC W/ARTHRD [] RI POSTERIOR SEGMENTAL INSTRUMENTATION 3-6 VRT SEG [] RI ALLOGRAFT FOR SPINE SURGERY ONLY MORSELIZED [] RI AUTOGRAFT SPINE SURGERY LOCAL FROM SAME INCISION [] RI SRINIVASAN FACETECTOMY & FORAMOTOMY 1 VRT SGM LUMBAR [[id number]] RI SRINIVASAN FACETECTOMY&FORAMOT 1 VRT SGM EA ADDL SGM [[id number]] RI STEREOTACTIC COMPUTER ASSISTED PX SPINAL [[id number]] Surgeons * Kenny Serna - Primary Procedure Summary Anesthesia: General ASA: III Estimated Blood Loss: 300 mL Drains: Closed/Suction Drain Inferior;Midline Back (Active) Implants Type Name Action Serial No. Spinal Hardware CAGE MODULUS XL [id number] 10DEG - [id number] Implanted Bone PUTTY ATTRAX 10CC - [id number] Implanted Spinal Hardware SCREW RELINE-O 2S PA 6.5X50 - [id number] Implanted Spinal Hardware SCREW RELINE-O 2S PA 8.5X50 - [id number] Implanted Spinal Hardware SCREW RELINE-O 2S PA 5.5X50 - [id number] Implanted Spinal Hardware PAKO RELINE-O TI 5.5X55 LORD - [id number] Implanted Spinal Hardware PAKO RELINE-O TI 5.5X40 LORD - [id number] Implanted Spinal Hardware SCREW RELINE OPEN TULIP 5.5 - [id number] Implanted Spinal Hardware CONN RELINE-O 5-6/5-6 O-H ROT - [id number] Implanted Staff: Record Press Operator: Earl Burrell RN Scrub Person: Aaron Hernandez MA; Dianne Ayala Findings: please see op note Complications: None; patient tolerated the procedure well. Specimens Collected: Order Name Source Comment Collection Info Order Time POTASSIUM WITH MG REFLEX For patients on dialysis to draw potassium day of surgery 11/06/2022 10:39 AM PROTHROMBIN TIME If patient on coumadin within 4 days prior. 11/06/2022 10:39 AM CBC WITH AUTO DIFFERENTIAL Blood, Venous Collected By: Sneha Gross RN 11/06/2022 10:39 AM Wound Class: Class I: Clean Blood Products: None Prophylactic Antibiotics: Procedure appropriate prophylactic antibiotic(s) given within 1 hour of surgical incision (two hours if receiving Vancomycin or flouroquinolone) Plan -No plans for return to OR -Dressing to be left C/D/I for 7 days - replace PRN for saturation w/ tegaderm and 4x4s -dc drain <40 a shift -CBC x 2 -Diet: CLD until flatus, then advance as tolerated -Reglan until BM -Colace -Decadron 6mg q6hr x 3 doses -Antibiotics x48hrs and drains removed -Robaxin 1500mg TID -ASA 81mg for 30 days starting POD # 1 -Multimodal pain control -WBAT; up w/ assistance -Brace, LSO PRN for comfort -PT/OT -okay without brace -No spinal precautions -NV checks q4 hrs -SCD's -Skin checks q shift -ok to d/c rodriguez when patient awake and alert -Activity restrictions: no lifting greater than 10-15lbs, avoid deep bending and/or twisting -Admit to H6 -[id number]* Op Note - Kenny Serna MD - 11/06/2022 1:40 PM EDT PROCEDURE NOTE Name: Ortiz Jacobs Date of : 1970 Age: 52 y.o. Primary Care Physician: Amandeep Loredo DO Admission Date/Time: 11/06/2022 10:26 AM Date of Procedure: 09/08/22 Attending Surgeon: Kenny Serna MD Paper Twister: Dona CABALLERO The first-geriatric assistant (PA, METAL ROOFING MECHANIC, RADON INSPECTOR, GITA, etc) was critical to all steps of the operation: these include but are not limited to spine exposure, decompression of the neurologic elements, possible placement of hardware in addition to deep and superficial wound closure. I understand that section 1842(b)(7)(D) of the Social Security Act generally prohibits Medicare physician fee schedule payment for theservices of assistants at surgery in teaching hospitals when qualified residents are available to furnish such services. I certify that the services for which payment is claimed were medically necessary and that no qualified resident was available to perform the services. I further understand that these services are subject to post-payment review by the Medicare carrier. PREOPERATIVE DIAGNOSES: 1. L3-L4 stenosis with neurogenic claudication. 2. Previous L4-S1 fusion 3. L3-L4 colllapse and retrolisthesis. 4. Flatback syndrome 5. Mechanical back pain. 6. Lumbar radiculopathy. POSTOPERATIVE DIAGNOSES: Same as above. PROCEDURES PERFORMED: 1. L3-L4 arthrodesis via anterior interbody technique. 2. L3-L4 application of intervertebral biomechanical device. 3. L3-L4 laminectomy, partial facetectomy, partial foraminotomy, with decompression of cauda equinaand nerve roots. 4. Posterior column osteotomy, L3/L4 5. L3-L4 posterior posterolateral arthrodesis. 6. L3-L4 posterior non-segmental instrumentation. 7. Autograft for spinal surgery. 8 Allograft for spinal surgery, morselized Attrax. 9. Use of operative neuromonitoring. 10. Stereotactic computer-assisted (navigational) procedure; spinal (Cios spin Intraoperative CT Scanner Navigation) ANESTHESIA: General endotracheal anesthesia MEDICATIONS: 2 grams of Ancef ESTIMATED BLOOD LOSS: 300 mL. URINE OUTPUT: See anesthesia. SPECIMENS SUBMITTED: None. IMPLANTS: 1. NuVasive Modulus titanium cage 2. NuVasive Reline pedicle screws. 3. Allograft: Morselized Attrax FINDINGS: 1. Significant lumbar degeneration was seen at each of operative levels including disk degeneration, disk protrusion, osteophyte formation, ligamentum flavum hypertrophy as well as facet hypertrophy contributing to spinal stenosis and spondylolisthesis. 2. The anterior and posterior spinal reconstruction was necessary to stabilize the L3-L4 segment inthe setting of spinal instability. 3. Intraoperative neuromonitoring was performed throughout the case and was consistent with lack ofany neurologic compromise before, during or after the operation. Gatica psoas retractor time of 8 minutes. INDICATIONS FOR PROCEDURE: Ortiz Jacobs is a 52 y.o. y.o.-year-old female patient, who has been followed by myself in the orthopedic spine clinic for their spinal condition. The clinical exam has been consistent with mechanical back pain and lumbar radicular symptoms that have failed to improve with conservative management. Based on the findings above, the patient elected to proceed with surgery as outlined has obtained preoperative medical clearance. We specifically discussed the risks and benefits of the trans-psoas approach for the anterior interbody fusion. The risks include but are not limited to new anterior thigh pain/numbness/tingling, hipflexion weakness, quadriceps weakness, foot drop, lumbar plexus injury, blood vessel injury, incisional hernia/pain, hematoma, bowel/intestinal injury and/or potential injury to local structures. After careful consideration and understanding of the risks, the patient consented to the procedure. CONSENT: The risks and benefits of surgery were discussed with the patient including but not limited to bleeding, possible need for transfusion, infection, blood vessel injury, blood vessel and lung clots, lymphatic injury, epidural hematoma, nerve injury, paralysis, dural spinal fluid leakage, urologic dysfunction, sexual dysfunction, surgical instrument failure, spinal instability, spinal pseudoarthrosis vertebral body fracture, disk herniation, reherniation, need for further surgery, esophageal injury, difficulty swallowing, hoarseness or loss of vocalization, syncope, dizziness, headache, blindness, renal failure, pneumonia, respiratory or cardiac arrest, stroke, coma and even . It was well understood by the patient that the outcome of complex spinal surgery such as this couldnot be guaranteed. All questions were answered to the patient's satisfaction, and the patient expressed excellent understanding of the above concepts. Based on our discussion, the patient elected to proceed with surgery as outlined above and informed consent was obtained. PROCEDURE IN DETAIL: Ortiz Jacobs was brought to the holding area at [facility]. In the holding area, the patient was seen and examined by myself and the surgical site was marked with my initials using an indelible pen. Thepatient was then transferred to the OR by the nursing staff. In the OR, the patient was given a dose of IV antibiotics within an hour of surgical start time. The patient was then transferred on to the OR table and all pressure points were well padded. General anesthetic was induced and a timeout procedure was performed. Neuromonitoring leads were placed on the patient and a Rodriguez catheter was inserted under sterile technique. SCDs were also placed on the bilateral calves. The patient was then placed in the lateral decubitus position with the right side up. The flank was then prepped and draped in usual sterile fashion. An oblique incision was then made over the flank using A scalpel and blunt dissection was used to gain access to the anterior retroperitoneal space. The lateral retractor was placed on to the L3-L4 interspace with live EMG guidance. Once the cannula was docked appropriately, no evidence of the lumbar plexus was noted either within the working space or anterior to it. I then proceeded with the en bloc decompression of L3-L4. Using combination of the long-handled scalpel, Esteban elevators, disk tiago, pituitary rongeurs, and spinal curettes, decompression of the disk space was performed. The contralateral annulus was released using Esteban elevator and the endplateswere cleared of remaining cartilage using rasps and currettes in preparation for fusion. I then performed the application of intervertebral biomechanical device at L3- L4. Trial cages were inserted. The appropriate implant fit was confirmed with feel and fluoroscopic imaging. The appropriate size implant was selected. The bone graft was then placed into the cage and the final implant was then impacted into the L3-[id number] under fluoroscopic guidance to complete the application of the intervertebral biomechanical device. Any remaining bone graft material was placed in the exposed vertebral interspace at L3-L4 to complete the arthrodesis via anterior interbody technique at this level. The wound was then copiously irrigated and the retractor was removed from the lateral spine. Any minimal bleeding was cauterized with the bipolar and the wound was closed with a combination of Vicrylsuture. At the conclusion of the anterior portion of the operation, all sponge, needle and instrument counts were deemed to be correct. A sterile dressing was placed over the flank incision. The drapes were removed from the patient and the Margarito four-post operating room table was broughtin. The patient was then turned prone on the Margarito frame and all pressure points were well padded. The back was then re-prepped and draped in usual sterile fashion. Next, the posterior elements were exposed from L3-L4. The previous hardware was visualized with respect to the L4 pedicle screw to confirm the operative level. A spinous process clamp was placed in the spine and the Siemens intraoperative CT scanner was brought to the operative field. Using navigation assistance in accordance with anatomic freehand landmarks, bilateral pedicle screws were placed at L3. I then turned my attention to the decompression. Using navigation assistance, bilateral complete facet resections were performed at the L3 and L4 level to perform a laminectomy in addition to a posterior column osteotomy. The laminectomy and osteotomy was necessary given the presence of flatback syndrome and significant lateral recess stenosis requiring complete facet resection. At the conclusionof the decompression, the L3 and L4 nerve roots were visualized bilaterally and felt to be free of compressive material. I then performed a posterolateral fusion of L3 and L4. The posterior elements of L3 and L4 were decorticated using high-speed bur until bleeding surface could be obtained. Allograft was then placed onto the decorticated posterior elements of L3 and L4 to achieve posterolateral fusion. The appropriate size pako was selected, placed in the tulip heads of the screws and then locked intoplace with a torque wrench under compression. Final x-rays were taken confirming adequate placement of the interbody graft as well as the posterior instrumentation. At the conclusion of the operation, all sponge, needle and instrument counts were deemed to be correct. The wounds were closed in layers using Vicryl suture. The skin was then dressed with Dermabond and sterile bandages. The patient was then turned back supine onto their hospital bed, awakened from the anesthetic and transferred to the postanesthesia care unit awake and in stable condition. Signed: Kenny Serna MD [id number] Note* Brief Op Note - Ha Carcamo PA-C - 11/06/2022 1:40 PM EDT Date: 11/06/2022 Location: [facility] OR Name: Berenice Jacobs, : 1970, Diagnosis Pre-op Diagnosis * Radiculopathy, lumbar region [M54.16] * Spinal stenosis of lumbar region [M48.061] * Spondylolisthesis, lumbar region [M43.16] * Other intervertebral disc degeneration, lumbar region [M51.36] Post-op Diagnosis * Radiculopathy, lumbar region [M54.16] * Spinal stenosis of lumbar region [M48.061] * Spondylolisthesis, lumbar region [M43.16] * Other intervertebral disc degeneration, lumbar region [M51.36] Procedures ANTERIOR LUMBAR INTERBODY FUSION L3/4 VIA RETROPERITONEAL APPROACH POSTERIOR LATERAL FUSION WITH INSTRUMENTATION L3/L4 LUMBAR L3/L4 LAMINECTOMY - RI ARTHRD ANT INTERBODY MIN DSC LUMBAR POSTERIOR LUMBAR LAMINECTOMY FACETECTOMY FORAMINOTOMY AND DECOMPRESSION - RI SRINIVASAN FACETECTOMY & FORAMOTOMY 1 VRT SGM LUMBAR RI INSJ BIOMCHN DEV INTERVERTEBRAL DSC SPC W/ARTHRD [] RI POSTERIOR SEGMENTAL INSTRUMENTATION 3-6 VRT SEG [] RI ALLOGRAFT FOR SPINE SURGERY ONLY MORSELIZED [] RI AUTOGRAFT SPINE SURGERY LOCAL FROM SAME INCISION [] RI SRINIVASAN FACETECTOMY & FORAMOTOMY 1 VRT SGM LUMBAR [[id number]] RI SRINIVASAN FACETECTOMY&FORAMOT 1 VRT SGM EA ADDL SGM [[id number]] RI STEREOTACTIC COMPUTER ASSISTED PX SPINAL [[id number]] Surgeons * Kenny Serna - Primary Procedure Summary Anesthesia: General ASA: III Estimated Blood Loss: 300 mL Drains: Closed/Suction Drain Inferior;Midline Back (Active) Implants Type Name Action Serial No. Spinal Hardware CAGE MODULUS XL [id number] 10DEG - [id number] Implanted Bone PUTTY ATTRAX 10CC - [id number] Implanted Spinal Hardware SCREW RELINE-O 2S PA 6.5X50 - [id number] Implanted Spinal Hardware SCREW RELINE-O 2S PA 8.5X50 - [id number] Implanted Spinal Hardware SCREW RELINE-O 2S PA 5.5X50 - [id number] Implanted Spinal Hardware PAKO RELINE-O TI 5.5X55 LORD - [id number] Implanted Spinal Hardware PAKO RELINE-O TI 5.5X40 LORD - [id number] Implanted Spinal Hardware SCREW RELINE OPEN TULIP 5.5 - [id number] Implanted Spinal Hardware CONN RELINE-O 5-6/5-6 O-H ROT - [id number] Implanted Staff: Record Press Operator: Earl Burrell RN Scrub Person: Aaron Hernandez MA; Dianne Ayala Findings: please see op note Complications: None; patient tolerated the procedure well. Specimens Collected: Order Name Source Comment Collection Info Order Time POTASSIUM WITH MG REFLEX For patients on dialysis to draw potassium day of surgery 11/06/2022 10:39 AM PROTHROMBIN TIME If patient on coumadin within 4 days prior. 11/06/2022 10:39 AM CBC WITH AUTO DIFFERENTIAL Blood, Venous Collected By: Sneha Gross RN 11/06/2022 10:39 AM Wound Class: Class I: Clean Blood Products: None Prophylactic Antibiotics: Procedure appropriate prophylactic antibiotic(s) given within 1 hour of surgical incision (two hours if receiving Vancomycin or flouroquinolone) Plan -No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 in her legs, we will need to proceed with a CT myelogram. She is unable to have a MRI secondary to an implanted gastric pacemaker. Additionally, she would like medication for her back pain, which we recommended Robaxin. The risks and appropriate dosing of muscle relaxants (ie Robaxin, Flexeril, etc) were discussed with patient in detail. These include but are not limited to drowsiness, headache, changes in heart rate, dizziness, nausea/vomiting, abdominal pain, constipation, memory problems, and urine discoloration. If any of these side effects are experienced I advised the patient to discontinue the medication and contact both myself and their primary care physician. I had a long discussion with Ortiz to make sure she had a good understanding of what I think the main issues and diagnoses are that are affecting her today, and reviewed the plan going forward. PLAN: CT myelogram Robaxin Follow-up after CT milligram Follow up for Call Central Scheduling [phone]. Electronically signed by Kenny Serna MD Dictated using Hipui Version 2.4 Proof read however unrecognized voice recognition errors may have occurred [facility] No data available for this section [facility] Evaluation note* Diagnosis Nausea and vomiting, intractability of vomiting not specified, unspecified vomiting type Painful urination Dysuria Flank pain Abdominal pain, unspecified site documented in this encounter [facility] Work Phone: Evaluation noteNo assessment information available [facility] Work Phone: Evaluation note* Diagnosis Mild intermittent asthma, unspecified whether complicated Cough, unspecified type Radiculopathy, lumbar region Thoracic or lumbosacral neuritis or radiculitis, unspecified Spinal stenosis of lumbar region Spondylolisthesis, lumbar region Other intervertebral disc degeneration, lumbar region documented in this encounter [facility] [employer] [facility]* Diagnosis Lumbar radiculopathy- Primary Thoracic or lumbosacral neuritis or radiculitis, unspecified Preop examination Unspecified pre-operative examination Status post lumbar spine surgery for decompression of spinal cord Status post spinal surgery Other postprocedural status Status post lumbar spine surgery for decompression of spinal cord documented in this encounter [facility]* Diagnosis Status post spinal surgery- Primary Other postprocedural status Lumbar radiculopathy Thoracic or lumbosacral neuritis or radiculitis, unspecified documented in this [facility] [employer] [facility]* Diagnosis Syncope, unspecified syncope type- Primary Syncope, unspecified syncope type History of spinal surgery Other postprocedural status Dehydration Diarrhea, unspecified type Seizure ([facility]) Other convulsions Nausea and vomiting, unspecified vomiting type Right leg pain Pain in soft tissues of limb Status post spinal surgery Other postprocedural status Lumbar radiculopathy Thoracic or lumbosacral neuritis or radiculitis, unspecified Status post lumbar spine surgery for decompression of spinal cord Chronic low back pain Lumbago Post-op pain Other acute postoperative pain Gastroparesis GERD (gastroesophageal reflux disease) Esophageal reflux Substance abuse ([facility]) ([facility]) Other, mixed, or unspecified nondependent drug abuse, unspecified Brief loss of consciousness [facility] Diagnosis Status post lumbar spine surgery for decompression of spinal cord [facility] Diagnosis Cervicalgia [facility]* Diagnosis Chronic superficial gastritis without bleeding- Primary Seizure ([facility]) Other convulsions [facility]* Diagnosis Cervicalgia- Primary Cervicalgia [facility]* Diagnosis Lumbar stenosis with neurogenic claudication- Primary Lumbar pain Lumbago [facility]* Diagnosis Spinal stenosis, lumbar region with neurogenic claudication [facility]* Diagnosis Lumbar stenosis with neurogenic claudication- Primary Lumbar pain Lumbago Fusion of spine of lumbar region [facility]* Diagnosis Lumbar radiculopathy- Primary Thoracic or lumbosacral neuritis or radiculitis, unspecified Radiculopathy, lumbar region Thoracic or lumbosacral neuritis or radiculitis, unspecified Spinal stenosis of lumbar region Spondylolisthesis, lumbar region Other intervertebral disc degeneration, lumbar region [facility]* Diagnosis Lumbosacral radiculopathy due to degenerative joint disease of spine- Primary Mild intermittent asthma, unspecified whether complicated Gastroesophageal reflux disease without esophagitis Esophageal reflux Cough, unspecified type Preoperative clearance Unspecified pre-operative examination Labile essential hypertension Migraine without status migrainosus, not intractable, unspecified migraine type Mild intermittent asthma, unspecified whether complicated Cough, unspecified type Radiculopathy, lumbar region Thoracic or lumbosacral neuritis or radiculitis, unspecified Spinal stenosis of lumbar region Spondylolisthesis, lumbar region Other intervertebral disc degeneration, lumbar region [facility] Additional Instructions I suspect you have irritation of your ribs or chest wall associated with coughing or pneumonia. In addition to the medications prescribed I also recommend you take an ivfq-ozs-pkhvtag anti-inflammatory such as ibuprofen (you may take up to 600 mg every 6 hours), 4% Salonpas Lidoderm patch and Mucinex. Please follow-up with your primary care doctor. Return if you have a difficult time breathing or you have a progression/change of your symptoms.[facility] Work Phone: Hospital Discharge instructions Additional Instructions Follow-up with your spine surgeon on Thursday as scheduled. Continue taking your gabapentin, ibuprofen, and Flexeril.[facility] Work Phone: Hospital Discharge instructions Additional Instructions Your physical exam and work-up indicate that the increased pain along your incision was related to allergic reaction/irritation from cleaning solution. Your labs and physical exam do not indicate any type of postoperative skin infection. Please do not use the cleaning solution anymore but wash with soap and water. Use the topical lidocaine for improved pain control and take the steroid for anti-inflammatory control. Follow-up with your surgeon for repeat evaluation as previously directed and return to the ER should [facility] Work Phone: Hospital Discharge instructions Additional Instructions The x-ray showed no broken bones. I suspect that your pain is from irritation of the ulnar nerve that runs on your elbow. As the swelling and pressure decreases the pain should go down. I prescribed steroids and recommend you take bqhu-vyf-wjhaxim pain relievers as needed.[facility] Work Phone: Hospital Discharge instructions Additional Instructions Pain caused by her heel spur. Motrin, Advil or ibuprofen for pain and swelling. Tylenol for pain. Ice to your heel. Buy extra padding to put in your shoe like a gel cup. Call and follow-up with the project management director Dr. Dawit Mandujano for further evaluation and treatment of the heel spur.[facility] Work Phone: Hospital Discharge instructions* Attachments The following attachments cannot be sent through Care Everywhere. * Myelography (Serbian) [facility] Additional Instructions Motrin for pain and inflammation. Percocet for severe pain. Skelaxin is a muscle relaxant 1 pill 3 times a day till gone. Hot shower, warm bath, hot tub, massage for the muscle spasm. Follow-up with your doctor if not improving for further evaluation.[facility] Work Phone: Surqvyq note* STEPHANIE Rodriguez: PERFORM Event Display: Patient Summary Documents Authored Date: [id number] [facility] Discharge Instructions * Attachments The following attachments cannot be sent through Care Everywhere. * Back Pain (Serbian) documented in this encounter* Discharge Instr - Lab* Colleen Rogel RN - 05/15/2020 1:10 PM EDT Your physician has ordered skilled home care services for you. Your home care will be provided by: [facility] [phone] * Attachments The following attachments cannot be sent through Care Everywhere. 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 Advance Directives and Living Will Power of Rotary Machine Operator Latest Code Status on File Code Status Date Activated Date Inactivated Comments Full Code 11/25/2017 3:30 PM 11/25/2017 11:54 PM Documents on File Type Date Recorded 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 ACP-Advance Directive ACP-Power of Rotary Machine Operator Latest Code Status on File Code Status Date Activated Date Inactivated Comments Full Code 05/14/2020 12:49 AM Full Code 09/16/2019 11:05 PM 09/19/2019 4:00 PM Full Code 11/25/2017 3:30 PM 11/25/2017 11:54 PM Documents on File Type Date Recorded 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 Advance Directives and Living Will Power of Rotary Machine Operator Latest Code Status on File Code Status Date Activated Date Inactivated Comments Full Code 11/25/2017 3:30 PM 11/25/2017 11:54 PM Advance Directive Response Recorded Date/ Time Name of Medical Power of Rotary Machine Operator LEANDRA MILLER March 21, 2022 8:16pm Advance Directives No September 30, 2016 10:48pm Living Will No March 21, 2022 8:16pm Power of Rotary Machine Operator Yes March 21 8:16pm Advance Directive Response Recorded Date/ Time Name of Medical Power of Rotary Machine Operator LEANDRA MILLER March 21, 2022 8:16pm Name of Medical Power of Rotary Machine Operator Leandra Miller May 04, 2022 7:39pm Advance Directives No September 30, 2016 10:48pm Living Will No May 04, 2022 7:39pm Power of Rotary Machine Operator Yes April 7:39pm Advance Directive Response Recorded Date/ Time Name of Medical Power of Rotary Machine Operator LEANDRA MILLER March 21, 2022 8:16pm Name of Medical Power of Rotary Machine Operator Leandra Miller May 04, 2022 7:39pm Advance Directives No September 30, 2016 10:48pm Living Will No June 28 10:07pm Power of Rotary Machine Operator No June 28, 2022 10:07pm Advance Directive Response Recorded Date/ Time Name of Medical Power of Rotary Machine Operator Leandra Miller May 04, 2022 6:39pm Name of Medical Power of Rotary Machine Operator LEANDRA MILLER August 20, 2022 10:04pm Advance Directives No September 30, 2016 9:48pm Living Will No August 20 022 10:04pm Power of Rotary Machine Operator Yes August 20, 2022 10:04pm Advance Directive Response Recorded Date/ Time Name of Medical Power of Rotary Machine Operator Leandra Miller May 04, 2022 6:39pm Name of Medical Power of Rotary Machine Operator LEANDRA MILLER August 20, 2022 10:04pm Advance Directives No September 30, 2016 9:48pm Living Will No August 24 11:48am Power of Rotary Machine Operator No August 24 023 11:48am Advance Directive Response Recorded Date/ Time Name of Medical Power of Rotary Machine Operator LEANDRA MILLER August 20, 2022 10:04pm Name of Medical Power of Rotary Machine Operator Leandra Miller September 23, 2022 2:02pm Advance Directives No September 30, 2016 9:48pm Living Will No September 23 2:02pm Power of Rotary Machine Operator Yes September 23, 2022 2:02pm Advance Directive Response Recorded Date/ Time Name of Medical Power of Rotary Machine Operator LEANDRA MILLER August 20, 2022 10:04pm Name of Medical Power of Rotary Machine Operator Leandra Miller September 23, 2022 2:02pm Advance Directives No September 30, 2016 9:48pm Living Will No October 14, 023 8:18pm Power of Rotary Machine Operator No October 14, 2022 8:18pm Advance Directive Response Recorded Date/ Time Name of Medical Power of Rotary Machine Operator LEANDRA MILLER August 20, 2022 11:04pm Name of Medical Power of Rotary Machine Operator Leandra Miller September 23, 2022 3:02pm Name of Medical Power of Rotary Machine Operator Leandra November 16, 2022 10:40pm Advance Directives No September 30, 2016 10:48pm Living Will Yes November 16, 2022 10:40pm Power of Rotary Machine Operator Yes March 26th, 20 23 10:40pm Latest Code Status on File Code Status Date Activated Date Inactivated Comments Full Code 11/25/2022 9:59 PM Latest Code Status on File Code Status Date Activated Date Inactivated Comments Full Code 11/25/2022 9:59 PM 11/27/2022 2:45 PM Latest Code Status on File Code Status Date Activated Date Inactivated Comments Full Code 11/25/2022 9:59 PM 11/27/2022 2:45 PM Advance Directive Response Recorded Date/ Time Name of Medical Power of Rotary Machine Operator Leandra November 16, 2022 10:40pm Name of Medical Power of Rotary Machine Operator LEANDRA PARRIS KNUTSON February 15, 2023 5:20pm Advance Directives No September 30, 2016 10:48pm Living Will No February 15, 2023 5:20pm Power of Rotary Machine Operator Yes February 15 5:20pm Advance Directive Response Recorded Date/ Time Advance Directives No September 30, 2016 9:48pm Living Will No October 07, 7:54pm Power of Rotary Machine Operator No October 07, 2023 7:54pm Advance Directive Response Recorded Date/ Time Name of Medical Power of Rotary Machine Operator Leandra Miller November 18, 2023 6:49pm Advance Directives No September 30, 2016 10:48pm Living Will No November 18, 2023 6:49pm Power of Rotary Machine Operator Yes November 17 6:49pm Advance Directive Response Recorded Date/ Time Name of Medical Power of Rotary Machine Operator Leandra Miller November 18, 2023 6:49pm Name of Medical Power of Rotary Machine Operator leandra miller nirmal mcintyre December 01, 2023 2:14am Advance Directives No September 30, 2016 10:48pm Living Will No December 01, 2023 2:14am Power of Rotary Machine Operator Yes November 30 2:14am Date Activated Date Inactivated Comments 10/09/2015 8:54 PM 10/11/2015 6:36 PM Advance Directive Response Recorded Date/ Time Living Will No October 20 025 9:14pm Do you have a Healthcare Power of Rotary Machine Operator? Yes October 20, 2024 9:14pm Name of Medical Power of Rotary Machine Operator Leandra Miller October 20, 2024 9:14pm Do you have a Healthcare Power of Rotary Machine Operator? No January 05, 2025 6:20pm Advance Directives No September 10:23am Advance Directive Response Recorded Date/ Time Do you have a Healthcare Power of Rotary Machine Operator? No January 05, 2025 6:20pm Do you have a Healthcare Power of Rotary Machine Operator? Yes March 14, 2025 2:52pm Advance Directives No September 10:23am Advance Directive Response Recorded Date/ Time Do you have a Healthcare Power of Rotary Machine Operator? No January 05, 2025 6:20pm Do you have a Healthcare Power of Rotary Machine Operator? Yes March 14, 2025 2:52pm Do you have a Healthcare Power of Rotary Machine Operator? No April 14, 2025 7:56am Advance Directives No September 10:23am Summary Purpose Family History Relationship Condition Age at Onset Recorded Date/T maryann Unknown Family History?Diabetes Unknown January 04, 2019 4:45am Family History?Diabetes Unknown February 02, 2019 7:58pm Family History?Heart Disease Unknown February 02, 2019 7:58pm Relationship Condition Age at Onset Recorded Date/T maryann Unknown Family History?Diabetes Unknown January 04, 2019 3:45am Family History?Diabetes Unknown February 02, 2019 6:58pm Family History?Heart Disease Unknown February 02, 2019 6:58pm Relationship Condition Age at Onset Recorded Date/T maryann Unknown Family History?Diabetes Unknown February 02, 2019 7:58pm Family History?Diabetes Unknown [facility] 2024 10:23am Family History?Heart Disease Unknown February 02, 2019 7:58pm Hospital Course Note HNO ID: [id number] Author: Neelam Mueller MD Service: Hospital Medicine Author Type: Physician Type: Discharge Summary Filed: 01/09/2020 1:33 PM Note Text: DISCHARGE SUMMARY PATIENT NAME: Ortiz Jacobs Code Status: Full Code Highest Readmission Risk Score: 22 The 30 day readmissions risk score is derived from an internally validated risk model which evaluates patient level characteristics, utilization history, medication orders and lab results up until the day of discharge. Patients with a score of 40 or above are considered highest risk for readmission. Specific patient level drivers will be listed at the bottom of the summary. Admission Information Admission Information ADMIT DATE: 01/03/2020 DISCHARGE DATE: 01/09/2020 MY DOCTORS AND MEDICAL TEAM: My Main Hospital Doctor: Gabby Mueller, * Primary Care Provider: Amandeep Loredo My Medical Team Members: Treatment Team: Attending Provider: Gabby Mueller MD Primary Service: Paulo Onofre MY CO (more content not included)... Note HNO ID: [id number] Author: Lian Vora Service: Neurology ICU Author Type: Physician Type: Procedures Filed: 01/06/2020 4:48 PM Note Text: BEDSIDE PROCEDURE NOTE CENTRAL LINE Performed by: Halle Arredondo Authorized by: Halle Irvin) Maria Elena The risks, benefits and alternatives of the procedure were reviewed with the patient/patient representative phlebotomy services. The patient/patient representative phlebotomy services agreed to proceed. Informed Consent Written Consent Obtained: yes [place] Protocol Sign In Communication: Completed Time Out completed: Team confirms correct patient, procedure, side/site, position (if applicable) and completion AND review of fire risk assessment/protocols (if appropriate) Affirmation of Time Out: Yes Sign Out Discussion: Yes Pre-procedure details: Personnel directly involved with the procedure wore the appropriate PPE. PPE Used: Sterile gloves, sterile gown, mask with eye shield and cap The area was prepped with chlorhexidine (Chloroprep) and allowed to dry. A sterile full body (more content not included)... Note HNO ID: [id number] Author: Lian Goins Service: Radiology Author Type: Physician Type: Brief Op Note Filed: 01/06/2020 2:55 PM Note Text: INTERVENTIONAL RADIOLOGY POST PROCEDURE NOTE DATE: 01/06/20 NAME: Ortiz Jacobs LOG ID: [id number] Pre-Procedure Diagnosis: Headache and intracranial hypotension Milk Runner: Surgeon(s) and Role: * Erika Goins - Primary Procedure: Fluoro guided lumbar epidural blood patch Anesthesia: Local Findings: Right L3-4 paraspinal approach. 12 cc blood placed. Pre pain 10/10 Post pain 7-8/10 Estimated Blood Loss: 0 ml Specimen: None Complications: None Post-Op/Post-Procedure Diagnosis: Headache and intracranial hypotension Note Attestation signed by Anatoly Leblanc MD at 05/15/2020 3:32 PM Attending Supervising Physician's Attestation Statement The patient is a 50 y.o. female. I have performed a history and physical examination of the patient. I discussed the case with the physician geriatric assistant. Patient was laying in bed during my evaluation, no distress. Abdominal pain resolved. She was having loose, brown bowel movements this morning. The patient denies chest pain and denies shortness of breath. She is eager to go home and agrees to slowly advance her diet at home. She also agrees with follow ups with PCP, Gastroenterology, and General surgery outpatient. I reviewed the patient's Past Medical History, Past Surgical History, Medications, and Allergies. Physical Exam: Vitals: 05/14/20 0550 05/14/20 1024 05/14/20 1808 05/15/20 0618 BP: (!) 144/89 (!) 143/94 113/75 126/78 Pulse: 102 90 101 88 Resp: 19 16 16 14 Temp: 96.5 ?F (35.8 ?C) 9 (more content not included)... Procedure Findings Note HNO ID: [id number] Author: Lian Vora Service: Neurology ICU Author Type: Physician Type: Procedures Filed: 01/06/2020 4:48 PM Note Text: BEDSIDE PROCEDURE NOTE CENTRAL LINE Performed by: Halle Arredondo Authorized by: Halle Arredondo The risks, benefits and alternatives of the procedure were reviewed with the patient/patient representative phlebotomy services. The patient/patient representative phlebotomy services agreed to proceed. Informed Consent Written Consent Obtained: yes [place] Protocol Sign In Communication: Completed Time Out completed: Team confirms correct patient, procedure, side/site, position (if applicable) and completion AND review of fire risk assessment/protocols (if appropriate) Affirmation of Time Out: Yes Sign Out Discussion: Yes Pre-procedure details: Personnel directly involved with the procedure wore the appropriate PPE. PPE Used: Sterile gloves, sterile gown, mask with eye shield and cap The area was prepped with chlorhexidine (Chloroprep) and allowed to dry. A sterile full body (more content not included)... Note HNO ID: [id number] Author: Lian Goins Service: Radiology Author Type: Physician Type: Brief Op Note Filed: 01/06/2020 2:55 PM Note Text: INTERVENTIONAL RADIOLOGY POST PROCEDURE NOTE DATE: 01/06/20 NAME: Ortiz Jacosb LOG ID: [id number] Pre-Procedure Diagnosis: Headache and intracranial hypotension Milk Runner: Surgeon(s) and Role: * Erika Goins - Primary Procedure: Fluoro guided lumbar epidural blood patch Anesthesia: Local Findings: Right L3-4 paraspinal approach. 12 cc blood placed. Pre pain 10/10 Post pain 7-810 Estimated Blood Loss: 0 ml Specimen: None Complications: None Post-Op/Post-Procedure Diagnosis: Headache and intracranial hypotension Reason for Referral Status Reason Specialty Diagnoses / Procedures Referred By Contact Referred To Contact Open Specialty Services Required Gastroenterology Diagnoses Constipation, unspecified constipation type Irritable bowel syndrome with constipation Delbert Damon PA-C [address] [place] [address] [facility] [address] [place] [address] Scheduling Instructions [facility] [address], [address] [place]. [address] Fax: Status Reason Specialty Diagnoses / Procedures Re ferred By Contact Referred To Contact Closed Radiology Diagnoses Painful urination Flank pain Procedures CT ABDOMEN PELVIS WO CONTRAST Additional Contrast? Radiologist Recommendation Ari Sotomayor, [address] [place] [address] Specialty Diagnoses / Procedures Referred By Contac t Referred To Contact Neurology Diagnoses Cervicalgia Procedures Nerve conduction test with EMG Shadia Kovacs PA-C [address] [place] [address] [facility] [address] [place] [address] Referral ID Status Reason Start Date Expiration Date Visits Re quested Visits Authorized [id number] Closed 05/11/2023 11/07/2023 1 1 Specialty Diagnoses / Procedures Referred By Dl t Referred To Contact Radiology Diagnoses Spinal stenosis, lumbar region with neurogenic claudication Procedures IR myelography lumbosacral SI Kenny Serna MD [address] [address] Referral ID Status Reason Start Date Expiration Date Visits Re quested Visits Authorized [id number] Closed 09/23/2022 03/22/2023 1 1 History of Present Illness * Damari Askew DTR - 05/15/2020 1:27 PM EDT Nutrition rescreen completed. Chart reviewed. Patient to be monitored and followed by the diet ordnance technician. * Katrin Mcpherson, PT - 05/15/2020 12:20 PM EDT Physical Therapy Facility/Department: [facility] MED SURG Initial Assessment NAME: Ortiz Jacobs : 1970 Date of Service: 05/15/2020 Discharge Recommendations: Home with assist PRN PT Equipment Recommendations Equipment Needed: Yes Mobility Devices: Canes Cane: Straight Cane Assessment Assessment: PT eval completed and the pt is near her functional baseline for transfers, ambulation,balance, and bed mobility. No further skilled therapy needs. Recommended home with assist and PT isalso disch Prognosis: Good Decision Making: Low Complexity REQUIRES PT FOLLOW UP: No Activity Tolerance Activity Tolerance: Patient limited by pain Patient Diagnosis(es): The primary encounter diagnosis was Other constipation. Diagnoses of Gastroparesis, Constipation, unspecified constipation type, and Irritable bowel syndrome with constipation were also pertinent to this visit. has a past medical history of Asthma, Cerebral aneurysm, nonruptured, Cervical spine degeneration, Colon cancer screening, Condyloma, Conversion disorder, Depression, major, recurrent (HCC), Displacement of lumbar intervertebral disc, Ex-smoker, Family history of colon cancer, Gastroparesis, GERD (gastroesophageal reflux disease), History of malignant melanoma, History of renal carcinoma, Historyof renal stone, IBS (irritable bowel syndrome), Inguinal hernia of left side without obstruction organgrene, Insomnia, [place] (myocardial infarction) (HCC), Migraine, Neuropathy, PAF (paroxysmal atrial fibrillation) ([facility]), PTSD (post- traumatic stress disorder), PUD (peptic ulcer disease), Seizure disorder ([facility]), Sleep apnea, Stroke ([facility]), Substance abuse ([facility]), Surgical menopause, and Urinary incontinence. has a past surgical history that includes Cholecystectomy (1986); Appendectomy (1987); Tubal ligation (1999); Hysterectomy, total abdominal (04/2010); Cystoscopy (04/30/11); Ovary removal (Right, 05/04);Arterial aneurysm repair (06/04); Gastric stimulator implant surgery (01/2013); lumbar fusion (02/2016); cervical fusion (2006); Gastric stimulator implant surgery (11/25/2017); and Upper gastrointestinal endoscopy (02/2019). Restrictions Restrictions/Precautions Restrictions/Precautions: Weight Bearing, Up Ad Laura(general diet) Required Braces or Orthoses?: No Lower Extremity Weight Bearing Restrictions Right Lower Extremity Weight Bearing: Weight Bearing As Tolerated Left Lower Extremity Weight Bearing: Weight Bearing As Tolerated Vision/Hearing Vision: Within Functional Limits Hearing: Within functional limits Subjective General Chart Reviewed: Yes Patient assessed for rehabilitation services?: Yes Family / Caregiver Present: No Diagnosis: constipation, flank and abominal pain Follows Commands: Within Functional Limits Subjective Subjective: Pt observed walking out of bathroom upon entry to room. Agreeable to therapy Pain Screening Patient Currently in Pain: Yes Vital Signs Patient Currently in Pain: Yes Pre Treatment Pain Screening Comments / Details: c/o bilat LE pain, but did not provide number Orientation Orientation Overall Orientation Status: Within Normal Limits Social/Functional History Social/Functional History Lives With: Alone Type of Home: House Home Layout: Two level, Bed/Bath upstairs, Able to Live on Main level with bedroom/bathroom(shower on second floor) Home Access: Stairs to enter with rails Entrance Stairs - Number of Steps: 1 Bathroom Shower/Tub: Tub/Shower unit Bathroom Toilet: Standard Bathroom Equipment: Grab bars in shower Bathroom Accessibility: Accessible Home Equipment: Rolling walker Receives Help From: Family ADL Assistance: Independent Homemaking Assistance: Independent Homemaking Responsibilities: Yes Ambulation Assistance: Independent Transfer Assistance: Independent Active Food Server: No Patient's Food Server Info: Daughter or Fiance' Occupation: On disability Additional Comments: per pt, still independent with ADLs. Does not use any DME. Daughter provides transportation and comes over once weekly to help clean. Pt on disability for many yrs due to hx CVA and worried about money. Would like a cane, but not sure she could afford it at this time Objective Observation/Palpation Posture: Fair Observation: on RA upon arrival, bilat LEs slight swollen and TTP AROM RLE (degrees) RLE AROM: WFL AROM LLE (degrees) LLE AROM : WFL Strength RLE Strength RLE: (grossly 4-/5 throughout) Strength LLE Strength LLE: (grossly 4-/5 throughout) Tone RLE RLE Tone: Normotonic Tone LLE LLE Tone: Normotonic Sensation Overall Sensation Status: WNL Bed mobility Supine to Sit: Independent Sit to Supine: Independent Transfers Sit to Stand: Independent Stand to sit: Independent Ambulation Ambulation?: Yes WB Status: WBAT More Ambulation?: No Ambulation 1 Surface: level tile Device: No Device Assistance: Supervision Gait Deviations: Slow Alejandra;Staggers Distance: 40' Comments: within room. Staggering due to pain in feet. Declined ambulation in hallway sighting increased pain Balance Posture: Fair Sitting - Static: Good Sitting - Dynamic: Good Standing - Static: Good Standing - Dynamic: Fair;+ Plan Plan Plan Comment: PT Disch Safety Devices Type of devices: All fall risk precautions in place, Call light within reach, Gait belt, Left in bed Restraints Initially in place: No AM-PAC Score AM-PAC Inpatient Mobility Raw Score : 21 (05/15/20 121) AM-PAC Inpatient T-Scale Score : 50.25 (05/15/201213) Mobility Inpatient CMS 0-100% Score: 28.97 (05/15/20 1214) Mobility Inpatient CMS G-Code Modifier : CJ (05/15/201213) Goals Patient Goals Patient goals : go home Therapy Time Individual Concurrent Group Co-treatment Time In 1150 Time Out 1202 Minutes 12 Patient s Physical Therapy Plan of Care supervision is transferred to [facility] Rehab Department Physical Therapist. Katrin Mcpherson, PT N-95, goggles, and gloves worn * Janeth Diaz, [facility] - 05/14/2020 10:47 AM EDT [facility] MEDICATION RECONCILIATION Date: 05/14/20 Room:[id number] Patient Name: Ortiz Jacobs Allergies: Latex; Other; Bee venom; Propoxyphene; Tape [adhesive tape]; Vicodin [hydrocodone-acetaminophen]; and Penicillins Age: 50 y.o. Sex: female Note: New information has been obtained regarding the patient s medications. The medication reconciliation has been updated to reflect this. Please consider making these changes/additions if appropriate: Recommendations: 1. Home medications to restart if there is not a current contraindication: a. Oxycodone-apap 5-325 mg TID (patient goes to pain management - med currently ordered as q 4 hours prn moderate pain) 2. Medications originally on the home list that patient states she takes but could not find any recent fills. Per patient, she had an appointment with her physician but missed it due to this admission to the hospital. Please write new scripts on discharge: a. Fluticasone 1 spray each nostril daily - last fill on 02/12/20 per [facility] pharmacy. b. Advair 250-50 mcg/dose 1 puff daily (Patient has not filled since January 2020. States script was originally written for q 12 hours but was instructed to use only once daily). c. Levetiracetam 250 mg - 5 tablets twice daily - [facility] 12[facility] d. Tizanidine 4 mg BID as needed - last fill per [facility] pharmacy was in August 2019. They last did a script for cyclobenzaprine 10 mg BID as needed 02/21/20. Patient states that she does not feel muscle relaxants work for her but was instructed by pain management to use. 3. Medications originally on the home list that patient no longer taking. Please discontinue unlessthere is a new indication: a. Tamsulosin 0.4 mg daily 4. Pursue the following to decrease adherence barriers: a. Patient states that she cannot afford her medications at least once a month. This could be an issue if any new medications are added. She also states she misses doses when she is nauseated and prior to admission had missed several days of all of her medications. b. Patient states she missed her doctor's appointment for medication refills during this admission.Consider writing prescriptions for all medications that she should continue at discharge. Please page/call with questions. Date: 05/14/20 Time: 10:47 AM Name: Janeth Diaz PharmD Pager: [phone] * Delbert Damon PA-C - 05/14/2020 7:55 AM EDT [facility] Progress Note Ortiz Jacobs : 1970(50 y.o.) Date: 05/14/2020 10:04 AM Subjective: HPI Patient is a 50 y/o F with PMHx idiopathic gastroparesis s/p gastric PM (2012) presenting with acute on chronic abdominal pain, distention, constipation x 5 d, and n/v. Also complains of dark blood on wiping. Hasnt been able to tolerate miralax for several days. CT A/P un concerning for obstruction. Supposedly got enema in the ED and also s/p lactulose overnight. Seen by general surgery who recommended gastric pacemaker interrogation and GI consult. The patient complains of diffuse abdominal pain and tenesmus. States she has rectal pain that radiates to her back when she bears down. Endoreses a small BM since lactulose last night and thinks her abdomen feels softer. She reports chronic issues with constipation requiring manual disimpaction in the past. Has been on daily miralax but has been unable to take it recently. States she was taken off lactulose for unknown reason but it was helping with her constipation previously. Endorses issues with urinary retention in the past 2/2 constipation. Today she feels she has been urinating less and maybe retaining urine. Denies any CP, SOB, f/c. Still feels nauseous but tolerating CLD. Has chronic back pain for which she takes percoset at home and follows with pain management. Intermittent smoking but no other illicit drug use. States she's concerned about her kidneys (due to history of renal cancer). Very tearful on exam. Scheduled Meds: aspirin 81 mg Oral Daily fluticasone 1 spray Nasal Daily mometasone-formoterol 2 puff Inhalation BID gabapentin 300 mg Oral TID therapeutic multivitamin-minerals 1 tablet Oral Daily pantoprazole 40 mg Oral BID AC tamsulosin 0.4 mg Oral Daily tiZANidine 4 mg Oral TID vitamin B-12 500 mcg Oral Daily sodium chloride flush 10 mL Intravenous 2 times per day enoxaparin 40 mg Subcutaneous Daily sennosides-docusate sodium 1 tablet Oral BID levETIRAcetam 1,500 mg Oral BID polyethylene glycol 17 g Oral Daily metoclopramide 10 mg Intravenous Q6H sodium chloride flush 3 mL Intravenous Q8H sodium chloride (PF) 10 mL Intravenous Once Continuous Infusions: lactated ringers 75 mL/hr at 05/14/20 0137 PRN Meds:albuterol, sodium chloride flush, acetaminophen OR acetaminophen, promethazine OR ondansetron, melatonin, oxyCODONE-acetaminophen Review of Systems Constitutional: Positive for unexpected weight change (gaining weight). Negative for chills, fatigue and fever. HENT: Negative for congestion and sore throat. Eyes: Negative for pain and visual disturbance. Respiratory: Negative for cough and shortness of breath. Cardiovascular: Negative for chest pain, palpitations and leg swelling. Gastrointestinal: Positive for abdominal distention, abdominal pain, blood in stool, constipation, nausea, rectal pain and vomiting. Negative for diarrhea. Genitourinary: Positive for decreased urine volume and difficulty urinating. Negative for dysuria, frequency and hematuria. Musculoskeletal: Negative for myalgias. Skin: Negative for color change and rash. Neurological: Negative for dizziness, weakness and headaches. Hematological: Does not bruise/bleed easily. Psychiatric/Behavioral: The patient is not nervous/anxious. Interval Pertinent History: Social History Tobacco Use Smoking status: Current Every Day Smoker Packs/day: 0.50 Years: 35.00 Pack years: 17.50 Smokeless tobacco: Never Used Substance Use Topics Alcohol use: No Alcohol/week: 0.0 standard drinks Frequency: Never Binge frequency: Never Objective: Patient Vitals for the past 24 hrs: BP Temp Temp src Pulse Resp SpO2 Height Weight 05/14/20 0550 (!) 144/89 96.5 F (35.8 C) Temporal 102 19 94 % 05/14/20 0049 (!) 149/91 97 F (36.1 C) Temporal 101 19 94 % 05/13/20 2154 137/87 99 18 97 % 05/13/20 1838 5' 9 (1.753 m) 210 lb (95.3 kg) 05/13/20 1837 (!) 145/90 96 F (35.6 C) Temporal 107 24 97 % Average, Min, and Max for last 24 hours Vitals: TEMPERATURE: Temp Av.5 F (35.8 C) Min: 96 F (35.6 C) Max: 97 F (36.1 C) RESPIRATIONS RANGE: Resp Av Min: 18 Max: 24 PULSE RANGE: Pulse Av.3 Min: 99 Max: 107 BLOOD PRESSURE RANGE: Systolic (24hrs), Av , Min:137 , Max:149 ; Diastolic (24hrs), Av, Min:87, Max:91 PULSE OXIMETRY RANGE: SpO2 Av.5 % Min: 94 % Max: 97 % No intake/output data recorded. Physical Exam Vitals signs reviewed. Constitutional: General: She is not in acute distress. Appearance: She is well-developed. She is obese. She is not diaphoretic. Comments: Tearful, sitting up in bed HENT: Head: Normocephalic and atraumatic. Right Ear: External ear normal. Left Ear: External ear normal. Nose: Nose normal. Mouth/Throat: Mouth: Mucous membranes are moist. Eyes: General: No scleral icterus. Right eye: No discharge. Left eye: No discharge. Conjunctiva/sclera: Conjunctivae normal. Pupils: Pupils are equal, round, and reactive to light. Neck: Musculoskeletal: Neck supple. Thyroid: No thyromegaly. Cardiovascular: Rate and Rhythm: Normal rate and regular rhythm. Heart sounds: Normal heart sounds. No murmur. Comments: Borderline tachycardia Pulmonary: Effort: Pulmonary effort is normal. No respiratory distress. Breath sounds: Normal breath sounds. No wheezing. Abdominal: General: Bowel sounds are normal. There is distension. Palpations: Abdomen is soft. There is no mass (no hernia). Tenderness: There is abdominal tenderness (diffuse). There is guarding. Hernia: No hernia is present. Musculoskeletal: Right lower leg: Edema (trace) present. Left lower leg: Edema (trace) present. Lymphadenopathy: Cervical: No cervical adenopathy. Skin: General: Skin is warm and dry. Findings: No erythema. Neurological: General: No focal deficit present. Mental Status: She is alert and oriented to person, place, and time. Mental status is at baseline. Cranial Nerves: No cranial nerve deficit. Psychiatric: Behavior: Behavior normal. Comments: Tearful, anxious Lab Results Component Value Date WBC 7.8 05/14/2020 HGB 14.6 05/14/2020 HCT 43.8 05/14/2020 MCV 97.4 05/14/2020 PLT 314 05/14/2020 Lab Results Component Value Date NA 137 05/14/2020 K 4.3 05/14/2020 CL 109 05/14/2020 CO2 16 05/14/2020 BUN 10 05/14/2020 CREATININE 0.58 05/14/2020 GLUCOSE 132 05/14/2020 CALCIUM 9.0 05/14/2020 No results found for: LABA1C Additional results of the last 24 hours have been reviewed. Assessment and Plan: Principal Problem: Constipation Active Problems: Gastroparesis Presence of gastric pacemaker Generalized abdominal pain Nausea and vomiting Resolved Problems: * No resolved hospital problems. * #Constipation/abdominal pain/n/v -acute on chronic fecal occult negative, CT A/p with no obstruction -s/psoap suds enema and lactulose with good effect, may benefit from restarting on daily lactulose -CLD advance as tolerated -started on scheduled reglan, senna-S, miralax daily, BID protonix, PRN dulcolax suppository -limit opioids as this will likely worsen her gastroparesis and constipation but on percocet at home 2/2 chronic back pain #Gastroparesis s/p PM- surgery following, interrogation today #Chronic back pain-on home percocet, gabapentin, zanaflex follows with pain management #Hx of ?seizures- on keppra DVTProphylaxis: lovenox 40 q 24hr - creatinine clearance >30 Disposition:await test results, await eap consultant recommendations, await clinical improvement and anticipate discharge 1-2d I spent over 51% of total time providing counseling or incoordination of care: > 35 minutes discussed with nurse, patient and family updated, I personally examined the patient and I personally reviewed chart, data, labs radiology reports 7AM-4PM Please Perfect serve Delbert Damon PA-C or page: [phone] 6PM-6AM please page: [facility] Associated attestation - Kenisha Brunson MD - 05/14/2020 3:19 PM EDT Attending Supervising Physician's Attestation Statement The patient is a 50 y.o. female. I have performed a history and physical examination of the patient. I discussed the case with the physician geriatric assistant. I reviewed the patient's Past Medical History, Past Surgical History, Medications, and Allergies. Ms. Jacobs felt better on evaluation this morning. Noted small BM after enema in ER but another BM this morning. She states her abdominal pain is slightly improved.+N/V prior to admission- no emesis now. Has severe anxiety- almost tearful during exam. She states she is afraid she is having blood in the stool- discussed with her stable hgb and NEG hemoccult. Physical Exam: Vitals: 05/13/20 2154 05/14/20 0049 05/14/20 0550 05/14/20 1024 BP: 137/87 (!) 149/91 (!) 144/89 (!) 143/94 Pulse: 99 101 102 90 Resp: 18 16 Temp: 97 F (36.1 C) 96.5 F (35.8 C) 97.3 F (36.3 C) TempSrc: Temporal Temporal Temporal SpO2: 97% 94% 94% 96% Weight: Height: General: seated upright in bed. HEENT: normocephalic, eom in tact, dry oral mucosa. CV: rrr, no m/r/g. Lungs: non-labored respirations, ctab. Abdomen: bowel sounds are present,mild tenderness mid abdomen. Extremities: symmetric, no edema. Neuro: alert, oriented x 3, moving all four extremities freely. Psych: tearful Impression/Plan I reviewed and agree with the findings and plan documented in her note . #Constipation #Abdominal pain #Gastroparesis with gastric pacemaker #Non anion gap metabolic acidosis #Chronic pain #IS #Anxiety #h/o conversion disorder -CT abd/pelvis with no acute abnormality -Symptomatically improved after bowel movements. Will need aggressive bowel regimen on dc. -Appreciate surgery + GI input * Theron Park MD - 05/14/2020 6:42 AM EDT Department of Surgery Progress Note PATIENT NAME: Ortiz Jacobs : 1970 ATTENDING PHYSICIAN: Aba Aguilar MD ADMIT DATE: 05/13/2020 TODAY'S DATE: 05/14/2020 SUBJECTIVE Patient seen and examined. No acute events overnight. Having liquid bowel movements. Still having abdominal bloating and pain. OBJECTIVE VITALS: Patient Vitals for the past 24 hrs: BP Temp Temp src Pulse Resp SpO2 Height Weight 05/14/20 0550 (!) 144/89 96.5 F (35.8 C) Temporal 102 19 94 % 05/14/20 0049 (!) 149/91 97 F (36.1 C) Temporal 101 19 94 % 05/13/20 2154 137/87 99 18 97 % 05/13/20 1838 5' 9 (1.753 m) 210 lb (95.3 kg) 05/13/20 1837 (!) 145/90 96 F (35.6 C) Temporal 107 24 97 % PHYSICAL EXAM: CONSTITUTIONAL: NAD, Resting in bed CHEST: Resp effort easy and unlabored ABDOMEN: soft, distended, mildly diffusely TTP. Neurostim palpable in LLQ EXT: extremities normal, atraumatic, no cyanosis or edema INTAKE/OUTPUT: No intake/output data recorded. No intake/output data recorded. Data CBC: Recent Labs 05/13/20 1931 05/14/20 0136 WBC 8.1 7.8 HGB 15.6 14.6 HCT 46.5 43.8 PLT 338 314 BMP: Recent Labs 05/13/20193105/14/20 0136 NA 138 137 K 3.7 4.3 CL 108* 109* CO2 19* 16* BUN 11 10 CREATININE 0.59 0.58 GLUCOSE 122* 132* HEPATIC: Recent Labs 05/13/201931 ALKPHOS 106 ALT 31 AST 40 PROT 7.7 BILITOT 0.2 BILIDIR 0.0 LABALBU 4.4 ASSESSMENT & PLAN 50 y.o. female with hx of gastroparesis s/p neurostimulator placement 2012 with battery [id number] presenting with abdominal pain and constipation Gastroparesis - will interrogate pacer today - ok to advance diet as tolerated - anti-emetics PRN - consider scheduled reglan Constipation - aggressive bowel regimen - GI consulted Pager:[phone] Associated attestation - Theron Taylor MD - 05/14/2020 2:08 PM EDT [facility] - Surgery [facility] Physicians Surgery Patient Name: Ortiz Jacobs Date: 05/14/20 No acute - feels better - BM after lactulose - that she normally uses MiraLAX however this was not effective. BP (!) 143/94 Pulse 90 Temp 97.3 F (36.3 C) (Temporal) Resp 16 Ht 5' 9 (1.753 m) Wt 210 lb (95.3 kg) SpO2 96% BMI 31.01 kg/m Procedure: The neurostimulator was interrogated without difficulty. There were no immediate procedural complications. The neurostimulator is functioning well. After appropriate interrogation and interpretation, final settings include 5 volts, 330 pulse width, 55 htz with an on/off cycle of 0.3sec/3.0sec and impedance measured at 562 ohms. I reduced the off cycle from 4.0s to 3.0s. CBC: Recent Labs 05/13/20193005/14/20 0136 WBC 8.1 7.8 HGB 15.6 14.6 HCT 46.5 43.8 PLT 338 314 BMP: Recent Labs 05/13/20193105/14/20 0136 NA 138 137 K 3.7 4.3 CL 108* 109* CO2 19* 16* BUN 11 10 CREATININE 0.59 0.58 GLUCOSE 122* 132* Hepatic: Recent Labs 05/13/201931 ALKPHOS 106 ALT 31 AST 40 PROT 7.7 BILITOT 0.2 BILIDIR 0.0 LABALBU 4.4 Abdomen: Soft, nontender, nondistended. Wound healing well, no evidence of cellulitis infection or problems with the neurostimulator Plan: Neurostimulator interrogation, off cycle decreased from 4 seconds to 3 seconds. Diet as tolerated, otherwise no surgical recommendations Continue bowel regimen and stimulation for bowel movement on discharge Will follow up as outpatient, please do not hesitate to contact me should you have any questions orconcerns - thanks I personally supervised my Resident/Surgical Fellow in the evaluation and management of Ortiz Jacobs in the development of a treatment plan for this patient. I personally interviewed the patient and performed an individual physical examination. In addition, I discussed the patient's condition and treatment options with them. I have also reviewed and agree with the past medical, family and social history and care plan unless otherwise noted. All of the patient's questions were answered. Greater than 51% of the 15 minute face to face encounter was spent discussing/counseling the patient regarding the care plan for this patient. The patient was seen and examined independently and relevant data reviewed by myself. A full chart review was performed. documented in this encounter Chief Complaint and Reason for Visit Chief Complaint fever RIB PAIN Chief Complaint fever RIB PAIN UPPER EXTREM Chief Complaint RIB PAIN UPPER EXTREM left hand injury Chief Complaint UPPER EXTREM left hand injury LEFT HAND BACK SOB Chief Complaint UPPER EXTREM left hand injury LEFT HAND BACK SOB CHEST PAIN Chief Complaint left hand injury LEFT HAND BACK SOB CHEST PAIN CHEST PAIN Chief Complaint left hand injury LEFT HAND BACK SOB CHEST PAIN CHEST PAIN back Chief Complaint SOB CHEST PAIN CHEST PAIN back BACK WOUND PAIN/INFECTION Chief Complaint BACK WOUND PAIN/INFE CTION NUMB/TING TO BILATERAL ARMS Chief Complaint BACK PAIN Chief Complaint BACK PAIN LOWER EXT Chief Complaint BACK PAIN LOWER EXT n/v/d Chief Complaint Admit Date BACK October 20, 2024 7:50pm FALL January 05, 2025 4:57p m Chief Complaint Admit Date FALL January 05, 2025 4:57p m BACK PAIN March 14, 2025 1:58 pm Chief Complaint Admit Date FALL January 05, 2025 4:57p m BACK PAIN March 14, 2025 1:58 pm sob April 14, 2025 7: 36am Additional Source Comments Reason for Visit (unrecogniz ed section and content) Reason Comments Back Pain Pt a&Ox3. Pt c/o low er back pain x 1 week. Pt states it's a burning, tearing sensation in by lower back and neck stiffness x 1 day. Reason Comments Abdominal Pain Pt states she has be en having dark stool for the last 2 days. Pt states she also feel like something is tearing in my stomach when she attempts to have a bowel movement Melena Specialty Diagnoses / Procedures Referred By Dl t Referred To Contact Diagnoses Radiculopathy, lumbar region Spinal stenosis of lumbar region Spondylolisthesis, lumbar region Other intervertebral disc degeneration, lumbar region LUMBAR RADICULOPATHY LUMBAR STENOSIS LUMBAR SPONDYLOLITHESES LUMBAR DDD Procedures RI ARTHRD ANT INTERBODY MIN DSC LUMBAR RI SRINIVASAN FACETECTOMY & FORAMOTOMY 1 VRT SGM LUMBAR RI INSJ BIOMCHN DEV INTERVERTEBRAL DSC SPC W/ARTHRD RI POSTERIOR SEGMENTAL INSTRUMENTATION 3-6 VRT SEG RI ALLOGRAFT FOR SPINE SURGERY ONLY MORSELIZED RI AUTOGRAFT SPINE SURGERY LOCAL FROM SAME INCISION RI SRINIVASAN FACETECTOMY & FORAMOTOMY 1 VRT SGM LUMBAR RI SRINIVASAN FACETECTOMY&FORAMOT 1 VRT SGM EA ADDL SGM RI STEREOTACTIC COMPUTER ASSISTED PX SPINAL ANTERIOR LUMBAR INTERBODY FUSION L3/4 VIA RETROPERITONEAL APPROACH; POSTERIOR LATERAL FUSION WITH INSTRUMENTATION L3/L4; LUMBAR L3/L4 LAMINECTOMY POSTERIOR LUMBAR LAMINECTOMY FACETECTOMY FORAMINOTOMY AND DECOMPRESSION Kenny Serna MD [address] [address] [address] [place] [address] Referral ID Status Reason Start Date Expiration Date Visits Re quested Visits Authorized [id number] 1 1 Reason Onset Date Comments Post-op Call 11/13/2022 Reason Onset Date Comments Reschedule 11/24/2022 Reason Comments Post-op Back Pain Leg Pain Reason Comments Syncopal Episode Pt was at her doctor s office to have stitches removed from her back surgery when she when unconscious. Pt states that she is unaware of how long she was out. Pt said the doctor thought she had a seizure but patient isnt sure / doesn't think she did. Specialty Diagnoses / Procedures Referred By Dl dai Referred To Contact Diagnoses Syncope, unspecified syncope type Procedures [id number], unspecified syncope type Nowak, Deep, DO [address] [place] [address] Merged With [facility] [address] [place] [address] Referral ID Status Reason Start Date Expiration Date Visits Re quested Visits Authorized [id number] 1 1 Specialty Diagnoses / Procedures Referred By Dl dai Referred To Contact Radiology Diagnoses Spinal stenosis, lumbar region with neurogenic claudication Procedures CT lumbar spine w IV contrast Kenny Serna MD 1 [facility] [address] [place] [address] Referral ID Status Reason Start Date Expiration Date Visits Re quested Visits Authorized [id number] Closed 07/11/2022 2023 1 1 Specialty Diagnoses / Procedures Referred By Dl dai Referred To Contact Neurology Diagnoses Cervicalgia Procedures Nerve conduction test with EMG Shadia Kovacs PA-C [address] [place] [address] [facility] [address] [place] [address] Referral ID Status Reason Start Date Expiration Date Visits Re quested Visits Authorized [id number] Closed 05/11/2023 11/07/2023 1 1 Reason Comments Mass On stomach getting b igger and now painful Reason Onset Date Comments Mouth Lesions 09/01/2023 Reason Onset Date Comments Advice/health education 01/30/2024 Reason Comments New Patient Specialty Diagnoses / Procedures Referred By Dl dai Referred To Contact Orthopedic Surgery Diagnoses Lumbar pain Ileana Villa, CERTIFIED LEGAL SECRETARY SPECIALIST - RADON INSPECTOR [address] [place] [address] Kenny Serna MD [address] [place] [address] Referral ID Status Reason Start Date Expiration Date Visits Requested Visits Authorized [id number] Pending Review Specialty Services Required 2 12/30/2022 1 1 Specialty Diagnoses / Procedures Referred By Contac t Referred To Contact Radiology Diagnoses Spinal stenosis, lumbar region with neurogenic claudication Procedures IR myelography lumbosacral SI Kenny Serna MD 1 [facility] [address] [place] [address] Referral ID Status Reason Start Date Expiration Date Visits Re quested Visits Authorized [id number] Closed 09/23/2022 03/22/2023 1 1 Reason Comments Follow-up Reason Onset Date Comments nurse triage 10/01/2022 Reason Onset Date Comments Nurse Navigation 10/27/2022 Reason Comments surgical clearance INFORMATION SOURCE (unrecogn ized section and content) DATE CREATED AUTHOR 09/17/2019 [facility] [employer] DATE CREATED AUTHOR AUTHOR'S ORGANIZ ATION 01/09/2020 [facility] DATE CREATED AUTHOR AUTHOR'S ORGANIZ ATION 01/09/2020 [facility] DATE CREATED AUTHOR AUTHOR'S ORGANIZ ATION 01/18/2020 [facility] DATE CREATED AUTHOR AUTHOR'S ORGANIZ ATION 05/21/2020 [facility] DATE CREATED AUTHOR AUTHOR'S ORGANIZ ATION 03/13/2023 [facility] DATE CREATED AUTHOR AUTHOR'S ORGANIZ ATION 01/31/2024 [employer] DATE CREATED AUTHOR AUTHOR'S ORGANIZ ATION 10/01/2024 [facility] [employer] [facility] DATE CREATED AUTHOR AUTHOR'S ORGANIZ ATION 03/25/2025 [facility] Goals (unrecognized section and content) Goals may be documented in a n alternate sectionGoals may be documented in an alternate sectionGoals may be documented in an alternate sectionGoals may be documented in an alternate sectionGoals may be documented in an alternate sectionGoals may be documented in an alternate sectionGoals may be documented in an alternate sectionGoals may be documented in an alternate sectionGoals may be documented in an alternate sectionGoals may be documented in an alternate section No data available for this sectionGoals may be documented in an alternate sectionGoals may be documented in an alternate sectionGoals may be documented in an alternate sectionGoals may be documented in an alternate sectionGoals may be documented in an alternate sectionGoals may be documented in an alternate section Care Teams (unrecognized sec tion and content) Team Status: Active Member Role Status Dates Dr. Amandeep Loredo DO Family Provider Active Dr. Ari Sotomayor , DO Primary Care Provider Active Team Status: Inactive Member Role Status Dates Dr. Ari Sotomayor , DO Primary Care Provider, Referrin g Provider Active Tyler QUINTANA, PA Attending Provider Active Team Status: Inactive Member Role Status Dates Dr. Ari Sotomayor DO Primary Care Provider Active Dr. Maya Monroy MD Attending Provider, Emergency Provider Active Team Status: Inactive Member Role Status Dates Dr. Ari Sotomayor DO Primary Care Provider Active Dr. Alfredito Guerrero , DO Attending Provider, Emergency Pr ovider Active Team Status: Inactive Member Role Status Dates Dr. Ari Sotomayor DO Primary Care Provider Active Dr. Alfred Parkinson , DO Attending Provider, Emergency P rovider Active Team Status: Inactive Member Role Status Dates Dr. Ari Sotomayor DO Primary Care Provider Active Dr. Ellen Chaney MD Attending Provider, Emergency Provider Active Team Status: Inactive Member Role Status Dates Dr. Ari Sotomayor DO Primary Care Provider Active Dr. Mattie Jeffrey , DO Emergency Provider Active Team Status: Inactive Member Role Status Dates Dr. Ari Sotomayor DO Primary Care Provider Active Dr. Mattie Jeffrey , DO Attending Provider, Emergency P rovider Active Team Status: Inactive Member Role Status Dates Dr. Ari Sotomayor DO Primary Care Provider Active Jordin Chisholm MD Emergency Provider Active Clin Application Specialist Relationship Specialty Start Date End Date Amandeep Loredo DO [address] [place] [address] PCP - General Family Medicine 01/11/21 Clin Application Specialist Relationship Specialty Start Date End Date Amandeep Loredo DO [address] [place] [address] PCP - General Family Medicine 01/11/21 Clin Application Specialist Relationship Specialty Start Date End Date Amandeep Loredo, DO [address] [place], [place] [id number] PCP - General Family Medicine 01/11/21 Clin Application Specialist Relationship Specialty Start Date End Date Amandeep Loredo, DO [address] [place] [address] PCP - General Family Medicine 01/11/21 Clin Application Specialist Relationship Specialty Start Date End Date Amandeep Loredo, DO [address] [place] [address] PCP - General Family Medicine 01/11/21 Team Status: Inactive Member Role Status Dates Dr. Ari Sotomayor , DO Primary Care Provider Active Jordin Chisholm MD Attending Provider, Emergency Provid er Active Team Status: Inactive Member Role Status Dates Dr. Ari Sotomayor , DO Primary Care Provider Active Dr. Alfredito Guerrero , DO Emergency Provider Active Clin Application Specialist Relationship Specialty Start Date End Date Amandeep Loredo, DO [address] [place] [address] PCP - General Family Medicine 01/11/21 Clin Application Specialist Relationship Specialty Start Date End Date Amandeep Loredo, DO [address] [place] [address] PCP - General Family Medicine 01/11/21 Clin Application Specialist Relationship Specialty Start Date End Date Amandeep Loredo, DO [address] [place] [address] PCP - General Family Medicine 01/11/21 Clin Application Specialist Relationship Specialty Start Date End Date Amandeep Loredo, DO [address] [place] [address] PCP - General Family Medicine 01/11/21 Team Status: Inactive Member Role Status Dates Dr. Ari Sotomayor DO Primary Care Provider Active Dr. Maya Monroy MD Emergency Provider Active Clin Application Specialist Relationship Specialty Start Date End Date Amandeep Loredo DO [address] [place] [address] PCP - General Family Medicine 01/11/21 Clin Application Specialist Relationship Specialty Start Date End Date Amandeep Loredo, DO [address] [place] [place] [address] PCP - General Family Medicine 01/11/21 Clin Application Specialist Relationship Specialty Start Date End Date Amandeep Loredo DO [address] [place] [address] PCP - General Family Medicine 01/11/21 Clin Application Specialist Relationship Specialty Start Date End Date Amandeep Loredo, DO [address] [place] [address] PCP - General Family Medicine 01/11/21 Clin Application Specialist Relationship Specialty Start Date End Date Amandeep Loredo, DO [address] [place] [address] PCP - General Family Medicine 01/11/21 Team Status: Inactive Member Role Status Dates Dr. Ari Sotomayor DO Primary Care Provider Active Dr. Narciso Baron , Emergency Provider Active Team Status: Active Member Role Status Dates Dr. Amandeep Loredo DO Family Provider Active Dr. Amandeep Loredo DO Primary Care Provider Active Team Status: Inactive Member Role Status Dates Dr. Ari Sotomayor DO Primary Care Provider Active Dr. Narciso Baron DO Attending Provider, Emergency Jordy villavicencio Active Team Status: Inactive Member Role Status Dates Dr. Zain Carvajal MD Emergency Provider Active Dr. Amandeep Loredo , Primary Care Provider Active Team Status: Inactive Member Role Status Dates Dr. Zain Carvajal MD Attending Provider, Emergency Pro vider Active Dr. Amandeep Loredo , Primary Care Provider Active Team Status: Inactive Member Role Status Dates Dr. Amandeep Loredo , Primary Care Provider Active Dr. Franki Flynn DO Emergency Provider Active Clin Application Specialist Relationship Specialty Start Date End Date Ari Sotomayor, DO [address] [place] [address] PCP - General 09/16/19 Clin Application Specialist Relationship Specialty Start Date End Date Ari Sotomayor, DO [address] [place] [address] PCP - General 09/16/19 Clin Application Specialist Relationship Specialty Start Date End Date Ari Sotomayor, DO [address] [place] [address] PCP - General 09/16/19 Clin Application Specialist Relationship Specialty Start Date End Date Ari Sotomayor, DO [address] [place] [address] PCP - General 09/16/19 Clin Application Specialist Relationship Specialty Start Date End Date Ari Sotomayor, DO [address] [place] [address] PCP - General 09/16/19 Clin Application Specialist Relationship Specialty Start Date End Date Ari Sotomayor, DO [address] [place] [address] PCP - General 09/16/19 Clin Application Specialist Relationship Specialty Start Date End Date Amandeep Loredo, DO [address] [place] [address] PCP - General Family Medicine 01/11/21 Clin Application Specialist Relationship Specialty Start Date End Date Amandeep Loredo, DO [address] [place] [address] PCP - General Family Medicine 01/11/21 Team Status: Active Member Role Status Dates Dr. Amandeep Loredo DO Primary Care Provider Active Team Status: Inactive Member Role Status Dates Dr. Amandeep Loredo DO Primary Care Provider Active Start: October 20, 2024 End: October 21, 2024 Dr. Luis Angel Morales DO Attending Provider Active Start: October 20, 2024 End: October 21, 2024 Dr. Luis Angel Morales DO Referring Provider Active Start: October 20, 2024 End: October 21, 2024 Dr. Luis Angel Morales DO Emergency Provider Active Start: October 20, 2024 End: October 21, 2024 Team Status: Inactive Member Role Status Dates Dr. Amandeep Loredo DO Primary Care Provider Active Start: January 05, 2025 End: January 05, 2025 Dr. Franki Flynn DO Emergency Provider Active Start: January 05, 2025 End: January 05, 2025 Team Status: Active Member Role/Relationship Status Dates Dr. Amandeep Loerdo DO Primary Care Provider Active Team Status: Inactive Member Role/Relationship Status Dates Dr. Amandeep Loredo DO Primary Care Provider Active Start: January 05, 2025 End: January 05, 2025 Dr. Franki Flynn DO Attending Provider Active Start: January 05, 2025 End: January 05, 2025 Dr. Franki Flynn DO Emergency Provider Active Start: January 05, 2025 End: January 05, 2025 Team Status: Inactive Member Role/Relationship Status Dates Dr. Amandeep Loredo DO Primary Care Provider Active Start: March 14, 2025 End: March 14, 2025 Dr. Zain Carvajal MD Emergency Provider Active S tart: March 14, 2025 End: March 14, 2025 Team Status: Inactive Member Role/Relationship Status Dates Dr. Amandeep Loredo DO Primary Care Provider Active Start: March 14, 2025 End: March 14, 2025 Dr. Zain Carvajal MD Attending Provider Active S tart: March 14, 2025 End: March 14, 2025 Dr. Zain Carvajal MD Emergency Provider Active S tart: March 14, 2025 End: March 14, 2025 Team Status: Inactive Member Role/Relationship Status Dates Dr. Amandeep Loredo , Primary Care Provider Active Start: April 14, 2025 End: April 14, 2025 Dr. Alfred Parkinson DO Emergency Provider Active Start: April 14, 2025 End: April 14, 2025 Scheduled Active and Recently Administ ered Medications (unrecognized section and content) Medication Order 11/08/2022 11/09/2022 11/10/2022 acetaminophen (Tylenol) tablet 1,000 mg 1,000 mg, Oral, Every 6 hours, First dose on Lana 11/06/22 at 2030, Phase II/On Unit, Maximum dose of acetaminophen is 4000 mg from all sources in 24 hours. 0213 (Given - Provider: Rea Villareal RN)1104 (Given - Provider: Rosa Taveras)1401 (Not Given - Provider: Waleska León RN - Reason: Other - Comment: pt at cumalative overdose for tylenol)1636 (Given - Provider: Waleska León RN)2201 (Given - Provider: Rea Villareal RN) 0543 (Given - Provider: Rea Villareal RN)1114 (Given - Provider: Shadia Metz RN)1721 (Given - Provider: Shadia Metz RN) 0040 (Given - Provider: Rea Villareal RN)0605 (Given - Provider: Rea Villareal RN)1140 (Given - Provider: Kerri Eller RN)1700 (Canceled Entry - Provider: Automatic Discharge Provider - Comment: Automatically canceled at discontinue of medication order) aspirin chewable tablet 81 mg 81 mg, Oral, Daily, First dose on Thu11/07/22 at 1615, For 30 days, Recovery & On Unit 1102 (Given - Provider: Rosa Taveras - Comment: pt was resting) 0854 (Given - Provider: Shadia Metz RN) 0808 (Given - Provider: Kerri Eller, CLIVE) cholecalciferol (Vitamin D-3) tablet 5,000 Units 5,000 Units, Oral, Daily, First dose on Thu11/07/22 at 1615, Recovery & On Unit 1103 (Given - Provider: Rosa Taveras) 0854 (Given - Provider: Shadia Metz, CLIVE) 0808 (Given - Provider: Kerri Eller, CLIVE) clindamycin in D5W (Cleocin) IVPB 900 mg (COMPLETED) 900 mg, IntraVENous, at 50 mL/hr, Administer over 60 Minutes, Every 8 hours, First dose on Lana 11/06/22 at 2200, For 2 days, Phase II/On Unit, premix bag, Suspected Indication (Select all that apply): Surgical Prophylaxis 0623 (New Bag - Provider: Rea Villareal RN)0723 (Stopped - Provider: Waleska León, CLIVE)1435 (New Bag - Provider: Rosa Taveras)1535 (Stopped - Provider: Waleska León RN) dexAMETHasone (Decadron) injection 6 mg (COMPLETED) 6 mg, IntraVENous, Every 6 hours, First dose on Thu11/07/22 at 1615, For 3 doses, Recovery & On Unit 0411 (Given - Provider: Rea Villareal RN) dexAMETHasone (Decadron) injection 6 mg (COMPLETED) 6 mg, IntraVENous, Every 6 hours, First dose on Thu11/09/22 at 2130, For 3 doses 2140 (Given - Provider: Rea Villareal RN) 0508 (Given - Provider: Rea Villareal RN)1140 (Given - Provider: Kerri Eller, CLIVE) gabapentin (Neurontin) capsule 300 mg 300 mg, Oral, 3 times daily, First dose on Thu11/07/22 at 1400 0859 (Given - Provider: Waleska León RN)1743 (Given - Provider: Waleska León RN - Comment: pt request)2201 (Given - Provider: Rea Villareal RN) 0900 (Given - Provider: Shadia Metz, CLIVE)1418 (Given - Provider: Shadia Metz, CLIVE)2022 (Given - Provider: Rea Villareal RN) 0808 (Given - Provider: Kerri Eller, CLIVE)1400 (Canceled Entry - Provider: Automatic Discharge Provider - Comment: Automatically canceled at discontinue of medication order) levETIRAcetam (Keppra) tablet 1,500 mg 1,500 mg, Oral, 2 times daily, First dose on Thu11/07/22 at 2100, Recovery & On Unit 1102 (Given - Provider: Rosa Taveras - Comment: pt was resting)220 (Given - Provider: Rea Villareal RN) 0854 (Given - Provider: Shadia Metz, CLIVE)2020 (Given - Provider: Rea Villareal RN) 0818 (Given - Provider: Kerri Eller, CLIVE) Lidocaine 4 % patch 1 patch 1 patch, Topical, Administer over 12 Hours, Daily, First dose on Thu11/07/22 at 0930, Apply patch to affected area. Patch may remain in place for up to 12 hours in any 24 hour period. 1108 (Medication Applied - Provider: Rosa Taveras)2308 (Medication Removed - Provider: Rea Villareal RN) 0854 (Medication Applied - Provider: Shadia Metz, CLIVE)2054 (Medication Removed - Provider: Rea Villareal RN) 1143 (Medication Applied - Provider: Kerri Eller RN)1400 (Due: Medication Removed - Provider: Automatic Discharge Provider - Comment: Time automatically adjusted from order being discontinued) methocarbamol (Robaxin) tablet 1,500 mg 1,500 mg, Oral, Every 8 hours, First dose on Lana 11/06/22 at 2030, Phase II/On Unit 0411 (Given - Provider: Rea Villareal RN)1134 (Given - Provider: Waleska León, CLIVE)220 (Given - Provider: Rea Villareal, CLIVE) 0544 (Given - Provider: Rea Villareal RN)1417 (Given - Provider: Shadia Metz RN)2021 (Given - Provider: Rea Villareal RN) 0508 (Given - Provider: Rea Villareal RN)1140 (Given - Provider: Kerri Eller, CLIVE) metoclopramide (Reglan) tablet 10 mg 10 mg, Oral, Every 6 hours scheduled (4 times per day), First dose on Thu11/07/22 at 1800, Recovery & On Unit 0006 (Given - Provider: Rea Villareal RN)0623 (Given - Provider: Rea Villareal RN)1134 (Given - Provider: Waleska León RN)1637 (Given - Provider: Waleska León RN) 0038 (Given - Provider: Rea Villareal RN)0544 (Given - Provider: Rea Villareal RN)1114 (Given - Provider: Shadia Metz RN)1725 (Given - Provider: Shadia Metz RN) 0039 (Given - Provider: Rea Villareal RN)0606 (Given - Provider: Rea Villareal RN)1140 (Given - Provider: Kerri Eller, CLIVE) pantoprazole (ProtoNix) EC tablet 20 mg 20 mg, Oral, Daily before breakfast, First dose on 11/08/22 at 0700, Recovery & On Unit, Do not crush, chew, or split. 0623 (Given - Provider: Rea Villareal RN) 0544 (Given - Provider: Rea Villareal RN) 0606 (Given - Provider: Rea Villareal RN) potassium chloride (Klor-Con) packet 40 mEq (COMPLETED) 40 mEq, Oral, Once, On 11/09/22 at 1730, For 1 dose, Dissolve each packet in 4 ounces of water = 5 mEq per 1 oz fluid., Indications: Hypokalemia 172 (Given - Provider: Shadia Metz RN) Senna (Senokot) syrup 10 mL(Linked Group 1) 10 mL, Oral, 2 times daily, First dose on 11/09/22 at 1200, Give oral liquid if patient prefers or per feeding tube if present. 1207 (See Alternative - Provider: Shadia Metz RN)2021 (See Alternative - Provider: Rea Villareal RN) 0900 (See Alternative - Provider: Kerri Eller RN) sennosides (Senokot) tablet 17.2 mg(Linked Group 1) 17.2 mg (2 tablet), Oral, 2 times daily, First dose on 11/09/22 at 1200 1207 (Given - Provider: Shadia Metz RN)2021 (Given - Provider: Rea Villareal RN) 0900 (Not Given - Provider: Kerri Eller RN - Reason: Patient/family refused) sodium chloride 0.9% (NS) flush 10 mL 10 mL, IntraVENous, Every 12 hours scheduled (2 times per day), First dose on Lana 11/06/22 at 2100, Phase II/On Unit 0900 (Given - Provider: Waleska León RN)2100 (Given - Provider: Rea Villareal RN) 0900 (Given - Provider: Shadia Metz RN)2141 (Given - Provider: Rea Villareal RN) 0900 (Not Given - Provider: Kerri Eller, CLIVE - Reason: IV Fluids Infusing) PRN Medication Order 11/08/2022 11/09/2022 11/10/2022 albuterol 108 (90 Base) MCG/ACT inhaler 2 puff 2 puff, Inhalation, Every 6 hours PRN, wheezing, shortness of breath, Starting on 11/07/22 at 1602, Recovery & On Unit HYDROmorphone (Dilaudid) injection 0.25 mg(Linked Group 2) 0.25 mg, IntraVENous, Every 3 hours PRN, moderate pain (4-6), Starting on Lana 11/06/22 at 2020, Phase II/On Unit, If oral and IV narcotics ordered, use oral first and only use IV if oral is ineffective or cannot take oral. Do Not give oral and IV within 1 hour of each other unless specifically ordered. 0006 (See Alternative - Provider: Rea Villareal RN)0412 (See Alternative - Provider: Rea Villareal RN)0859 (See Alternative - Provider: Waleska León RN)1401 (See Alternative - Provider: Waleska León RN)1743 (See Alternative - Provider: Waleska León RN)2201 (See Alternative - Provider: Rea Villareal RN) 0316 (See Alternative - Provider: Rea Villareal RN)0854 (See Alternative - Provider: Shadia Metz, CLIVE)1207 (See Alternative - Provider: Shadia Metz, CLIVE)1505 (See Alternative - Provider: Shadia Metz, CLIVE)1807 (See Alternative - Provider: Lesly Nichosl RN)2140 (See Alternative - Provider: Rea Villareal RN) 0156 (See Alternative - Provider: Rea Villareal RN)0807 (See Alternative - Provider: Kerri Eller RN) HYDROmorphone (Dilaudid) injection 0.5 mg(Linked Group 2) 0.5 mg, IntraVENous, Every 3 hours PRN, severe pain (7-10), Starting on Lana 11/06/22 at 2020, Phase II/On Unit, If oral and IV narcotics ordered, use oral first and only use IV if oral is ineffective or cannot take oral. Do Not give oral and IV within 1 hour of each other unless specifically ordered. 0006 (Given - Provider: Rea Villareal RN)0412 (Given - Provider: Rea Villareal RN)0859 (Given - Provider: Waleska León RN)1401 (Given - Provider: Waleska León RN)1743 (Given - Provider: Waleska León RN)2201 (Given - Provider: Rea Villareal RN) 0316 (Given - Provider: Rea Villareal RN)0854 (Given - Provider: Shadia Metz RN)1207 (Given - Provider: Shadia Metz, CLIVE)1505 (Given - Provider: Shadia Metz RN)1807 (Given - Provider: Lesly Nichols RN)2140 (Given - Provider: Rea Villareal RN) 0156 (Given - Provider: Rea Villareal RN)0807 (Given - Provider: Kerri Eller RN) melatonin tablet 10 mg 10 mg, Oral, Nightly PRN, sleep, Starting on Thu11/07/22 at 1602, Recovery & On Unit 2201 (Given - Provider: Rea Villareal RN) 2140 (Given - Provider: Rea Villareal RN) ondansetron (Zofran) injection 4 mg(Linked Group 3) 4 mg, IntraVENous, Every 6 hours PRN, nausea, vomiting, Starting on Lana 11/06/22 at 2020, Phase II/On Unit, 1st Line. Give IV if patient is unable to take orally. If inadequate response within 60 minutes, proceed to next-line agent or contact provider if no further options ordered. ondansetron ODT (Zofran-ODT) disintegrating tablet 4 mg(Linked Group 3) 4 mg, Oral, Every 8 hours PRN, nausea, vomiting, Starting on Lana 11/06/22 at 2020, Phase II/On Unit, 1st Line. If inadequate response within 60 minutes, proceed to next-line agent or contact provider if no further options ordered. Patient should allow tablet to dissolve on tongue. Do not remove from blister pack until just before administering. oxyCODONE (Roxicodone) immediate release tablet 10 mg(Linked Group 4) 10 mg, Oral, Every 4 hours PRN, severe pain (7-10), Starting on Thu11/07/22 at 0928 0213 (Given - Provider: Rea Villareal RN)0623 (Given - Provider: Rea Villareal RN)1133 (See Alternative - Provider: Waleska León RN)163 (Given - Provider: Waleska León RN)2035 (Given - Provider: Rea Villareal RN) 0038 (Given - Provider: Rea Villareal RN)0543 (Given - Provider: Rea Villareal RN)1020 (Given - Provider: Shadia Metz RN)141 (Given - Provider: Shadia Metz RN)2021 (Given - Provider: Rea Villareal RN) 0039 (Given - Provider: Rea Vlilareal RN)0605 (Given - Provider: Rea Villareal RN)1140 (Given - Provider: Kerri Eller RN) oxyCODONE (Roxicodone) immediate release tablet 5 mg(Linked Group 4) 5 mg, Oral, Every 4 hours PRN, moderate pain (4-6), Starting on Thu11/07/22 at 0928 0213 (See Alternative - Provider: Rea Villareal RN)0623 (See Alternative - Provider: Rea Villareal RN)1133 (Given - Provider: Waleska León RN)163 (See Alternative - Provider: Waleska León RN)2035 (See Alternative - Provider: Rea Villareal RN) 0038 (See Alternative - Provider: Rea Villareal RN)0543 (See Alternative - Provider: Rea Villareal RN)1020 (See Alternative - Provider: Shadia Metz RN)1417 (See Alternative - Provider: Shadia Metz RN)2021 (See Alternative - Provider: Rea Villareal RN) 0039 (See Alternative - Provider: Rea Villareal RN)0605 (See Alternative - Provider: Rea Villareal RN)1140 (See Alternative - Provider: Kerri Eller RN) polyethylene glycol (PEG) 3350 (Miralax) packet 17 g 17 g, Oral, 2 times daily PRN, constipation, Starting on [place] 11/09/22 at 1150 1803 (Given - Provider: Lesly Nichols RN) sodium chloride 0.9 % infusion 5-250 mL/hr, IntraVENous, PRN, if patient receiving piggyback infusions and maintenance fluids are not ordered OR KVO fluids to protect IV site / prevent frequent line interruptions/ long duration, Starting on Lana 11/06/22 at 2019, Phase II/On Unit, For piggyback infusion, administer at same rate as piggyback for a total of 25 mL. Enter 25 mL into dose field and piggyback rate into rate field of order. If piggyback is infusing at a rate less than 100 mL/hr, enter 25 mL into dose field and 100 mL/hr into rate field of order. For KVO fluids, enter rate of 20 mL/hr or less into rate field of order. sodium chloride 0.9% (NS) flush 10 mL 10 mL, IntraVENous, PRN, line care, Starting on Lana 11/06/22 at 2019, Phase II/On Unit, After every IV line use Linked Groups Order Group 1: sennosides (Senokot) tablet 17.2 mgJump to med 17.2 mg (2 tablet), Oral, 2 times daily, First dose on [place] 11/09/22 at 1200 Or Senna (Senokot) syrup 10 mLJump to med 10 mL, Oral, 2 times daily, First dose on [place] 11/09/22 at 1200
Give oral liquid if patient prefers or per feeding tube if present.
Group 2: HYDROmorphone (Dilaudid) injection 0.25 mgJump to med 0.25 mg, IntraVENous, Every 3 hours PRN, moderate pain (4-6), Starting on Lana 11/06/22 at 2019, Phase II/On Unit
If oral and IV narcotics ordered, use oral first and only use IV if oral is ineffective or cannot take oral. Do Not give oral and IV within 1 hour of each other unless specifically ordered.
Or HYDROmorphone (Dilaudid) injection 0.5 mgJump to med 0.5 mg, IntraVENous, Every 3 hours PRN, severe pain (7-10), Starting on Lana 11/06/22 at 2019, Phase II/On Unit
If oral and IV narcotics ordered, use oral first and only use IV if oral is ineffective or cannot take oral. Do Not give oral and IV within 1 hour of each other unless specifically ordered.
Group 3: ondansetron ODT (Zofran-ODT) disintegrating tablet 4 mgJump to med 4 mg, Oral, Every 8 hours PRN, nausea, vomiting, Starting on Lana 11/06/22 at 2019, Phase II/On Unit
1st Line. If inadequate response within 60 minutes, proceed to next-line agent or contact provider if no further options ordered. Patient should allow tablet to dissolve on tongue. Do not remove from blister pack until just before administering.
Or ondansetron (Zofran) injection 4 mgJump to med 4 mg, IntraVENous, Every 6 hours PRN, nausea, vomiting, Starting on Lana 11/06/22 at 2019, Phase II/On Unit
1st Line. Give IV if patient is unable to take orally. If inadequate response within 60 minutes, proceed to next-line agent or contact provider if no further options ordered.
Group 4: oxyCODONE (Roxicodone) immediate release tablet 5 mgJump to med 5 mg, Oral, Every 4 hours PRN, moderate pain (4-6), Starting on Thu11/07/22 at 0928 Or oxyCODONE (Roxicodone) immediate release tablet 10 mgJump to med 10 mg, Oral, Every 4 hours PRN, severe pain (7-10), Starting on Thu11/07/22 at 0928 Scheduled Medication Order 11/25/2022 11/26/2022 11/27/2022 acetaminophen (Tylenol) tablet 1,000 mg 1,000 mg, Oral, Every 8 hours, First dose on Thu11/25/22 at 1940, Maximum dose of acetaminophen is 4000 mg from all sources in 24 hours. 2030 (Given - Provider: Sparkle Hassan RN) 0340 (Not Given - Provider: Verenice Oh RN - Reason: Other - Comment: Pt sleeping)1140 (Not Given - Provider: Lyndsay Paredes RN - Reason: Patient/family refused)204 (Given - Provider: Jayne Dubois, CLIVE) 0507 (Given - Provider: Jayne Dubois RN)1140 (Not Given - Provider: Mickie Quiroga RN - Reason: Patient/family refused) aluminum & magnesium hydroxide-simethicone (Mylanta) 200-200-20 MG/5ML oral suspension 10 mL (COMPLETED) 10 mL, Oral, Once, On Thu11/25/22 at 2200, For 1 dose 2214 (Given - Provider: Sparkle Hassan, CLIVE) aspirin EC tablet 81 mg 81 mg, Oral, Daily, First dose on Thu11/26/22 at 0900, Do not crush, chew, or split. 0838 (Given - Provider: Lyndsay Paredes RN) 0809 (Given - Provider: Spring Miller LPN) cetirizine (ZyrTEC) tablet 10 mg 10 mg, Oral, Daily, First dose on Thu11/26/22 at 1430 1625 (Given - Provider: Rubia Infante RN) 0809 (Given - Provider: Spring Miller LPN) cyancobalamine (Vitamin B-12) tablet 500 mcg 500 mcg, Oral, Daily, First dose on Thu11/26/22 at 0900 0837 (Given - Provider: Lyndsay Paredes RN) 0809 (Given - Provider: Spring Miller LPN) diphenhydrAMINE (BENADryl) injection 50 mg (COMPLETED) 50 mg, IntraVENous, Once, On Thu11/25/22 at 1055, For 1 dose, Administer 1 hour prior to contrast. 1114 (Given - Provider: Saravanan Santos) diphenhydrAMINE (BENADryl) injection 50 mg (COMPLETED) 50 mg, IntraVENous, Once, On Thu11/25/22 at 1630, For 1 dose 1630 (Given - Provider: Sparkle Hassan, CLIVE) enoxaparin (Lovenox) syringe 40 mg 40 mg, SubCUTAneous, Every 24 hours scheduled (Daily), First dose on Thu11/26/22 at 0900, Indication of Use: Prophylaxis-DVT/PE, Indications: Prophylaxis of Venous Thromboembolism 0900 (Not Given - Provider: Lyndsay Paredes RN - Reason: Patient/family refused) 0810 (Given - Provider: Spring Miller LPN) famotidine (Pepcid) injection 20 mg (COMPLETED) 20 mg, IntraVENous, Administer over 2 Minutes, Once, On Thu11/25/22 at 1055, For 1 dose, Administer 1 hour prior to contrast. 1114 (Given - Provider: Saravanan Santos) gabapentin (Neurontin) capsule 300 mg 300 mg, Oral, 3 times daily, First dose on Thu11/25/22 at 2200 2214 (Given - Provider: Sparkle Hassan RN) 0838 (Given - Provider: Lyndsay Paredes RN)1409 (Given - Provider: Rubia Infante RN)2043 (Given - Provider: Jayne Dubois RN) 0809 (Given - Provider: Spring Miller LPN)1400 (Canceled Entry - Provider: Automatic Discharge Provider - Comment: Automatically canceled at discontinue of medication order) levETIRAcetam (Keppra) 1,500 mg in sodium chloride 0.9 % 100 mL IVPB 1,500 mg, IntraVENous, at 400 mL/hr, Administer over 15 Minutes, 2 times daily, First dose on Thu11/25/22 at 2150 2229 (New Bag - Provider: Sparkle Hassan RN)2244 (Stopped - Provider: Sparkle Hassan, CLIVE) 0839 (New Bag - Provider: Lyndsay Paredes RN)1019 (Stopped - Provider: Lyndsay Paredes RN)204 (New Bag - Provider: Jayne Dubois RN)205 (Stopped - Provider: Jayne Dubois RN) 0815 (New Bag - Provider: Spring Miller LPN)0830 (Stopped - Provider: Mickie Quiroga RN) levETIRAcetam (Keppra) 2,000 mg in sodium chloride 0.9 % 100 mL IVPB (COMPLETED) 2,000 mg, IntraVENous, at 400 mL/hr, Administer over 15 Minutes, Once, On Thu11/25/22 at 1050, For 1 dose 1121 (New Bag - Provider: Saravanan Santos)1136 (Stopped - Provider: Sparkle Hassan, CLIVE) lidocaine (Xylocaine) 2 % mouth solution 15 mL (COMPLETED) 15 mL, Mouth/Throat, Once, On Thu11/25/22 at 2200, For 1 dose 2214 (Given - Provider: Sparkle Hassan, CLIVE) methocarbamol (Robaxin) tablet 1,500 mg 1,500 mg, Oral, 3 times daily, First dose on Thu11/25/22 at 2200 2214 (Given - Provider: Sparkle Hassan RN) 0838 (Given - Provider: Lyndsay Paredes RN)1409 (Given - Provider: Rubia Infante RN)2300 (Given - Provider: Jayne Dubois RN) 0809 (Given - Provider: Spring Miller LPN)1400 (Canceled Entry - Provider: Automatic Discharge Provider - Comment: Automatically canceled at discontinue of medication order) methylPREDNISolone sod suc (PF) (SOLU-Medrol) 40 MG injection 40 mg (COMPLETED) 40 mg, IntraVENous, Once, On Thu11/25/22 at 1310, For 1 dose 1330 (Given - Provider: Sparkle Hassan RN) miconazole (Micotin) 2 % powder Topical, 2 times daily, First dose on Thu11/26/22 at 1330, Apply under breast 1330 (Not Given - Provider: Rubia Infante RN - Reason: Medication not available)2320 (Given - Provider: Jayne Dubois RN) 0810 (Given - Provider: Spring Miller LPN) morphine sulfate (PF) injection 2 mg (COMPLETED) 2 mg, IntraVENous, Once, On Thu11/25/22 at 1855, For 1 dose, If oral and IV narcotics ordered, use oral first and only use IV if oral is ineffective or cannot take oral. Do Not give oral and IV within 1 hour of each other unless specifically ordered. 1857 (Given - Provider: Sparkle Hassan RN)1900 (Due) morphine sulfate (PF) injection 4 mg (COMPLETED) 4 mg, IntraVENous, Once, On Thu11/25/22 at 1710, For 1 dose, If oral and IV narcotics ordered, use oral first and only use IV if oral is ineffective or cannot take oral. Do Not give oral and IV within 1 hour of each other unless specifically ordered. 1715 (Given - Provider: Sahara Manriquez RN) nystatin (Mycostatin) 035042 UNIT/ML suspension 500,000 Units 500,000 Units (5 mL), Swish & Swallow, 4 times daily, First dose on Thu11/25/22 at 2100 2100 (Given - Provider: Spakrle Hassan RN) 0838 (Given - Provider: Lyndsay Paredes RN)1409 (Given - Provider: Rubia Infante RN)1700 (Canceled Entry - Provider: Automatic Discharge Provider - Comment: Automatically canceled at discontinue of medication order)2041 (Given - Provider: Jayne Dubois RN) 0809 (Given - Provider: Spring Miller LPN)1300 (Canceled Entry - Provider: Automatic Discharge Provider - Comment: Automatically canceled at discontinue of medication order) ondansetron (Zofran) injection 4 mg (COMPLETED) 4 mg, IntraVENous, Once, On Thu11/25/22 at 1130, For 1 dose 1128 (Given - Provider: Saravanan Santos) ondansetron (Zofran) injection 4 mg (COMPLETED) 4 mg, IntraVENous, Once, On Thu11/25/22 at 1710, For 1 dose 1715 (Given - Provider: Sahara Manriquez RN) oxyCODONE-acetaminophen (Percocet) 5-325 MG per tablet 1 tablet (COMPLETED) 1 tablet, Oral, Once, On Thu11/25/22 at 1035, For 1 dose, Maximum dose of acetaminophen is 4000 mg from all sources in 24 hours. 1123 (Given - Provider: Saravanan Santos - Comment: given by CLIVE Villagran) pantoprazole (ProtoNix) EC tablet 40 mg 40 mg, Oral, Daily before breakfast, First dose on Thu11/26/22 at 0700, Do not crush, chew, or split. 0553 (Given - Provider: Verenice Oh RN) 0507 (Given - Provider: Jayne Dubois RN) permethrin (Elimite) 5 % cream (COMPLETED) Topical, Once, On Thu11/25/22 at 1945, For 1 dose 2214 (Given - Provider: Sparkle Hassan, CLIVE) sodium chloride 0.9 % bolus 1,000 mL (COMPLETED) 1,000 mL, IntraVENous, at 1,000 mL/hr, Administer over 1 Hours, Once, On Thu11/25/22 at 1015, For 1 dose 1108 (New Bag - Provider: Saravanan Santos)1208 (Stopped - Provider: Sparkle Hassan, CLIVE) Continuous Medication Order 11/25/2022 11/26/2022 11/27/2022 lactated Ringer's infusion (CANCELED) 100 mL/hr, IntraVENous, Continuous, Starting on Thu11/26/22 at 1430 2041 (New Bag - Provider: Jayne Dubois RN) 0057 (Rate/Dose Verify - Provider: Jayne Dubois RN) sodium chloride 0.9 % infusion (CANCELED) 150 mL/hr, IntraVENous, Continuous, Starting on Thu11/25/22 at 1015 1429 (New Bag - Provider: Saravanan Santos)2148 (New Bag - Provider: Sparkle Hassan RN) 0000 (Rate/Dose Verify - Provider: Verenice Oh RN)0200 (Rate/Dose Verify - Provider: Verenice Oh RN)0430 (Rate/Dose Verify - Provider: Verenice Oh RN)0500 (New Bag - Provider: Verenice Oh RN)0630 (Rate/Dose Verify - Provider: Verenice Oh RN)1421 (Rate/Dose Verify - Provider: Rubia Infante RN)1427 (Stopped - Provider: Rubia Infante RN) PRN Medication Order 11/25/2022 11/26/2022 11/27/2022 fluticasone (Flonase) nasal spray 1 spray 1 spray, Each Nostril, Daily PRN, rhinitis, Starting on Thu11/25/22 at 2159, Shake gently. Before first use, prime pump (press 6 times until fine spray appears). After use, clean tip and replace cap. hydrOXYzine pamoate (Vistaril) capsule 25 mg 25 mg, Oral, Every 6 hours PRN, itching, Starting on Thu11/25/22 at 1931 0023 (Given - Provider: Verenice Oh RN) iopamidol (Isovue-370) 76 % injection 75 mL (COMPLETED) 75 mL, IntraVENous, IMG once PRN, contrast, Starting on Thu11/25/22 at 1740, For 1 dose 1741 (Given - Provider: Alexandr Velasquez) melatonin tablet 10 mg 10 mg, Oral, Nightly PRN, sleep, Starting on Thu11/25/22 at 2159 0023 (Given - Provider: Verenice Oh RN) mineral oil-hydrophilic petrolatum (Aquaphor) ointment 1 application 1 application, Topical, 2 times daily PRN, dry skin, Starting on Thu11/25/22 at 2206, Apply to lip corners. 0101 (Given - Provider: Jayne Dubois RN) morphine sulfate (PF) injection 2 mg (CANCELED) 2 mg, IntraVENous, Every 4 hours PRN, severe pain (7-10), for breakthrough pain, Starting on Thu11/25/22 at 1936, If oral and IV narcotics ordered, use oral first and only use IV if oral is ineffective or cannot take oral. Do Not give oral and IV within 1 hour of each other unless specifically ordered. 0023 (Given - Provider: Verenice Oh RN)0453 (Given - Provider: Verenice Oh RN)1858 (Given - Provider: Mickie Quiroga RN) 0058 (Given - Provider: Jayne Dubois RN) ondansetron (Zofran) injection 4 mg(Linked Group 1) 4 mg, IntraVENous, Every 6 hours PRN, nausea, vomiting, Starting on Thu11/25/22 at 2159, 1st Line. Give IV if patient is unable to take orally. If inadequate response within 60 minutes, proceed to next-line agent or contact provider if no further options ordered. 0023 (Given - Provider: Verenice Oh RN)1149 (Given - Provider: Charo Castañeda RN) ondansetron ODT (Zofran-ODT) disintegrating tablet 4 mg(Linked Group 1) 4 mg, Oral, Every 8 hours PRN, nausea, vomiting, Starting on Thu11/25/22 at 2159, 1st Line. If inadequate response within 60 minutes, proceed to next-line agent or contact provider if no further options ordered. Patient should allow tablet to dissolve on tongue. Do not remove from blister pack until just before administering. 0023 (See Alternative - Provider: Verenice Oh RN)1149 (See Alternative - Provider: Charo Castañeda RN) oxyCODONE (Roxicodone) immediate release tablet 10 mg(Linked Group 2) 10 mg, Oral, Every 4 hours PRN, severe pain (7-10), Starting on Thu11/25/22 at 1936 0023 (Given - Provider: Verenice Oh RN)0838 (See Alternative - Provider: Lyndsay Paredes RN)1625 (Given - Provider: Rubia Infante RN)2259 (Given - Provider: Jayne Dubois RN) 0506 (Given - Provider: Jayne Dubois RN)1017 (Given - Provider: Spring Miller LPN) oxyCODONE (Roxicodone) immediate release tablet 5 mg(Linked Group 2) 5 mg, Oral, Every 4 hours PRN, moderate pain (4-6), Starting on Thu11/25/22 at 1936 0023 (See Alternative - Provider: Verenice Oh RN)0838 (Given - Provider: Lyndsay Paredes RN)1625 (See Alternative - Provider: Rubia Infante RN)2259 (See Alternative - Provider: Jayne Dubois RN) 0506 (See Alternative - Provider: Jayne Dubois RN)1017 (See Alternative - Provider: Spring Miller LPN) perflutren lipid microspheres (Definity) injection 1.65 mg 1.65 mg, IntraVENous, IMG once PRN, other, Suboptimal echo image, Starting on Thu11/25/22 at 2159, For 1 dose, CV Procedural Medications, Administer up to 1.65 mg via slow IVP for suboptimal echocardiogram enhancement. May administer a calculated dose or diluted 8.5 mL of 0.9% sodium chloride for a total volume of 10 mL. May administer as divided doses to reach optimal image enhancement polyethylene glycol (PEG) 3350 (Miralax) packet 17 g 17 g, Oral, Daily PRN, constipation, Starting on Thu11/25/22 at 2159, 1st line for treatment of constipation - give scheduled if no bowel movement in past 24 hours. tiZANidine (Zanaflex) tablet 4 mg 4 mg, Oral, Every 8 hours PRN, muscle spasms, Starting on Thu11/26/22 at 1911 2040 (Given - Provider: Jayne Dubois RN) Linked Groups Order Group 1: ondansetron ODT (Zofran-ODT) disintegrating tablet 4 mgJump to med 4 mg, Oral, Every 8 hours PRN, nausea, vomiting, Starting on Thu11/25/22 at 2159
1st Line. If inadequate response within 60 minutes, proceed to next-line agent or contact provider if no further options ordered. Patient should allow tablet to dissolve on tongue. Do not remove from blister pack until just before administering.
Or ondansetron (Zofran) injection 4 mgJump to med 4 mg, IntraVENous, Every 6 hours PRN, nausea, vomiting, Starting on Thu11/25/22 at 2159
1st Line. Give IV if patient is unable to take orally. If inadequate response within 60 minutes, proceed to next-line agent or contact provider if no further options ordered.
Group 2: oxyCODONE (Roxicodone) immediate release tablet 5 mgJump to med 5 mg, Oral, Every 4 hours PRN, moderate pain (4-6), Starting on Thu11/25/22 at 1936 Or oxyCODONE (Roxicodone) immediate release tablet 10 mgJump to med 10 mg, Oral, Every 4 hours PRN, severe pain (7-10), Starting on Thu11/25/22 at 1936 FOR RECORDS PERTAINING TO PATIENTS WHO ARE OR HAVE BEEN ENROLLED IN A CHEMICAL DEPENDENCY/SUBSTANCEABUSE PROGRAM, SOME INFORMATION MAY BE OMITTED. This clinical summary was aggregated from multiple sources. Caution should be exercised in using it in the provision of clinical care. This summary normalizes information from multiple sources, and as a consequence, information in this document may materially change the coding, format and clinical context of patient data. In addition, data may be omitted in some cases. CLINICAL DECISIONS SHOULD BE BASED ON THE PRIMARY CLINICAL RECORDS. [facility]. provides no warranty or guarantee of the accuracy or completeness of information in this document.
[2025-04-15] MEDS: levETIRAcetam IV 1,000 MG/100 ML BAG 400 MG IV (17:37)
[2025-04-15 17:41] LABS: Hematocrit 45.9 % (37-47); Hemoglobin 15.3 g/dL (12.0-15.0); Immature Granulocytes Count 0.020 X10^3/uL (0.0-0.0); Mean Corp Hgb Conc 33.3 g/dL (32-36); Mean Corpuscular Volume 93.7 fL (81-99); Mean Platelet Vol. 9.6 fl (6.2-12.0); NRBC Flagged by Analyzer 0 % (0-5); Platelet Count 327 K/mm3 (150-450); RBC Distribution Width CV 12.7 % (11.6-14.6); RBC Distribution Width SD 43.8 fl (35.1-43.9); Red Blood Count 4.90 M/mm3 (4.2-5.4); White Blood Count 7.2 K/mm3 (4.4-11.0)
[2025-04-15] MEDS: levoFLOXacin IV 750 MG/150 ML BAG 100 MG IV (18:04)
[2025-04-15] MEDS: Ketorolac 30 MG/ML Syringe IV (18:05)
[2025-04-15 18:18] LABS: Anion Gap 14 (5-15); BUN 6 mg/dL (4-19); BUN/Creat Ratio 11.4 RATIO (10-20); Calcium,Total 9.4 mg/dL (7.6-11.0); Carbon Dioxide 21.9 mmol/L (21.0-32.0); Chloride 106 mmol/L (98-108); Estimated Creatinine Clearance 129.45 ml/min (50-250); Glucose 105 mg/dL (70-99); Potassium 3.5 mmol/L (3.3-5.1)
--- NOTE | 2025-04-15 18:33 | HP.PCM.HOS_ITS ---
HPI - General General Date of Admission: 04/15/25 Date of Service: 04/15/25 Chief Complaint: Intractable nausea and vomiting HPI Narrative ORTIZ JACOBS, is a 55 F who presented to [facility] ED on 04/15/2025 with intractable nausea and vomiting. Patient was seen in the ED yesterday for worsening shortness of breath, cough and pleuritic chest pain. She was diagnosed with pneumonia and sent home on p.o. azithromycin. This morning she developed diarrhea as well as nausea and vomiting. Noted she has vomited at least 10 times over the course of today. Has also had continued chest pain/discomfort, and she has been unable to take her p.o. medications so she came in for further evaluation. In the ED she was borderline tachycardic with heart rate in the 90s, was otherwise normotensive and stable on room air at rest. WBC count has improved from yesterday, and CBC and BMP are otherwise benign. Patient was given doses of IV Toradol and Zofran with only mild relief of symptoms. Was also given a breathing treatment. Given her intractable nausea and vomiting and inability to take p.o. medications, hospitalist was contacted for admission. I saw the patient at bedside in the ED. Patient was in mild to moderate distress due to ongoing chest and mid back discomfort. Has history of muscle spasms and notes that they have been more significant this afternoon. On my exam, she did have crackles noted in her upper airways bilaterally as well as wet cough noted. She was quite anxious appearing as well. Will give a dose of IV Norflex as well as a dose of IV Ativan, and will be admitted for further management. [facility]LY [facility] Medical History NSTEMI (non-ST elevated myocardial infarction) Cardiac arrest COVID-19 Brain aneurysm Chronic pain Rheumatoid arthritis Kidney stones Kidney disease GERD (gastroesophageal reflux disease) Former smoker Sleep apnea Asthma Migraines Seizures Home Medications ?Medication ?Instructions ?Recorded ?Last Taken ?Type pwmasmzs-dmvp-nvfb 8 mg-folic 400 1 tab PO DAILY suppl ement 03/21/19 07/26/21 History mcg-K 50 mcg-lutein 300 mcg tablet levetiracetam 750 mg tablet 1,500 mg PO Q12H seizures 12/04/19 07/26/21 History fluticasone propionate 50 1 spray intranasal DAILY 09/15 Unknown History mcg/actuation nasal spray,suspension (Flonase Allergy Relief) cyclobenzaprine 10 mg tablet 10 mg PO TID PRN Muscle S pasm #20 05/11/24 Unknown Rx TABLETS oxycodone-acetaminophen 5 mg-325 1 tab PO Q6H PRN pain 5 days #20 08/07/24 Unknown Rx mg tablet (Percocet) tabs gabapentin 400 mg capsule 800 mg PO Q12H 09/04/24 Unkn own History levetiracetam 1,000 mg tablet 1,000 mg PO Q12H 5 Unknown History (Keppra) omeprazole 20 mg capsule,delayed 20 mg PO BID 09/04/24 Unknown History release tizanidine 2 mg capsule 2 mg PO TID PRN muscle spast icity 10/21/24 Unknown Rx #14 caps metaxalone 800 mg tablet 800 mg PO TID 7 days #21 tab s 03/14/25 Unknown Rx oxycodone-acetaminophen 5 mg-325 1 tab PO Q6H PRN pain 4 days #12 03/14/25 Unknown Rx mg tablet (Percocet) tabs azithromycin 250 mg tablet 250 mg PO DAILY #4 TABLETS 04/14/25 Unknown Rx oxycodone-acetaminophen 5 mg-325 1 tab PO Q4H PRN Pain 04/15/25 Unknown History mg tablet Allergy/AdvReac Type Severity Reaction Status Date / Time Penicillins Allergy Anaphylaxis Verified 04/15/25 16:21 propoxyphene napsylate (From Allergy Rash Verified 04/15/25 16:21 Darvocet-N 100) adhesive tape (plastic tape) AdvReac Other Verified 04/15/25 16:21 hydrocodone bitartrate (From AdvReac Itching Verified 04/15/25 16:21 Vicodin) Iodinated Contrast Media AdvReac Vomiting Verified 04/15/25 16:21 (contrast dye - iodinated) venom-honey bee (bee venom AdvReac Chest Verified 04/15/25 16:21 (honey bee)) tightness Surgical History History of kidney surgery History of hysterectomy Hx of neck surgery Previous back surgery History of appendectomy History of cholecystectomy Social History household members: none Smoking Status: Current every day smoker tobacco type: cigarettes substance use type: does not use ROS Constitutional Constitutional: Reports fatigue; Denies chills, fever(s) or weakness Cardiovascular Cardiovascular: Reports chest pain; Denies dyspnea on exertion, edema or lightheadedness Respiratory/Chest Respiratory/Chest: Reports cough and productive cough; Denies shortness of breath at rest or wheezing Gastrointestinal Gastrointestinal: Reports nausea and vomiting; Denies abdominal pain Musculoskeletal Musculoskeletal: Reports back pain; Denies arthralgias or myalgias Neurologic Neurologic: Denies dizziness, focal weakness, headache(s), numbness or tingling Vital Signs Vital Signs Vital Signs: 04/15/25 16:19 04/15/25 16:47 04/15/25 16:47 Temperature 98.4 F Temperature Source Oral Pulse Rate 98 Respiratory Rate 20 H Respiratory Effort Normal Non-Labored Respiratory Depth Normal Respiratory Pattern Normal Blood Pressure 131/100 H Blood Pressure Mean 110 Pulse Ox 98 Oxygen Delivery Method Room Air Room Air Room Air 04/15/25 16:56 04/15/25 16:59 Temperature 98.8 F Temperature Source Oral Pulse Rate 89 100 Respiratory Rate 20 H 20 H Respiratory Effort Respiratory Depth Respiratory Pattern Tachypnea Blood Pressure 138/76 H Blood Pressure Mean 96 Pulse Ox 98 Oxygen Delivery Method Room Air Weight Weight: 80.195 kg Body Mass Index (BMI) 26.1 Physical Exam Const alert, oriented x3 and average body habitus Constitutional Narrative: Middle-age female, anxious appearing, mild to moderate acute distress due to ongoing chest and back discomfort with muscle spasms, otherwise laying back in bed, answering questions with short appropriate responses. General Appearance: cooperative HEENT normocephalic, head/scalp atraumatic, hearing grossly normal bilaterally, nasal mucous membranes and turbinates normal and moist oral mucous membranes Eyes PERRL, EOMs intact bilaterally and conjunctivae normal Neck full ROM Chest inspection of chest normal Resp normal respiratory effort and no use of accessory muscles Resp Narrative: Breathing comfortably on room air at rest. Mild crackles noted in upper airways bilaterally, no wheezing noted. Cardio regular rate, regular rhythm, no murmurs and peripheral pulses 2+ throughout GI normal to inspection, nondistended, normoactive bowel sounds, soft to palpation, non-tender and non-distended Back/Spine normal ROM Extremity normal to inspection and no pedal edema Skin no rashes or lesions noted Psych mental status grossly normal Mood & Affect: anxious Results Lab / Micro Data 04/15/25 17:33 04/15/25 17:33 Labs: Laboratory Results - last 24 hr 04/15/25 17:33: WBC 7.2, RBC 4.90, Hgb 15.3 H, Hct 45.9, MCV 93.7, MCH 31.2, MCHC 33.3, RDW Std Deviation 43.8, RDW Coeff of Bere 12.7, Plt Count 327, MPV 9.6, Immature Gran % (Auto) 0.300, Neut % (Auto) 70.2 H, Lymph % (Auto) 21.7, [place] % (Auto) 6.4, Eos % (Auto) 0.8, Baso % (Auto) 0.6, Absolute Neuts (auto) 5.0, Absolute Lymphs (auto) 1.56, Nucleated RBC % 0, Sodium 142, Potassium 3.5, Chloride 106, Carbon Dioxide 21.9, Anion Gap 14, BUN 6, Creatinine 0.55 L, Estim Creat Clear Calc 129.45, Est GFR (MDRD) Non-Af 108, BUN/Creatinine Ratio 11.4, G lucose 105 H, Calcium 9.4 Assessment & Plan Assessment/Plan (1) Intractable nausea and vomiting: (2) Pneumonia: PLAN: Plan Patient is a 55-year-old female who presented to [facility] ED on 04/15/2025 with intractable nausea and vomiting. 1. Intractable nausea and vomiting ? Admit under observation status to PCU. Patient with acute onset nausea with vomiting on day of admission. Suspect p.o. azithromycin started for pneumonia is a contributing factor. Will treat symptomatically with IV Zofran as needed and IV Compazine as needed. Okay for regular diet as tolerated. 2. Concern for community-acquired pneumonia ? Presented to ED on 04/14 for chest discomfort, shortness of breath and cough. Chest x-ray with right lower lobe airspace disease noted concerning for pneumonitis versus pneumonia. Treated with p.o. azithromycin and discharged home. Given nausea/vomiting as above, will switch from azithromycin to IV Levaquin at this time and plan for 7-day course of antibiotics total. 3. Chest and back discomfort with muscle spasms ? Patient with history of muscle spasms and given frequent coughing episodes and suspected pneumonia, has had worsened chest and back discomfort with ongoing muscle spasms. Given dose of IV Toradol in the ED without much improvement. Will give a dose of IV Norflex now and see how patient does with this. If this helps, can give this twice daily scheduled until patient is able to resume p.o. intake; can then switch back to home p.o. muscle relaxers. 4. Seizure disorder with concern for breakthrough seizure ? Patient had episode in the ED concerning for breakthrough seizure. Given 2 mg of IV Ativan at that time. Per ED staff, returned to baseline mental status fairly quickly so unclear if consistent with true seizure. Was given Keppra load in the ED and will continue IV Keppra 1500 mg twice daily until patient can tolerate p.o. intake. 5. GERD ? Treat with IV PPI twice daily for now. DVT prophylaxis: Lovenox CODE STATUS: Full code, verified Expected disposition: Home, TBD Total clinical time spent by myself addressing the patient's medical issues, reviewing all the data, and collaborating with patient's care team: 75 minutes. Charges/Coding Visit Charges Inpatient E&M: 39424 Init Hosp L3
--- NOTE | 2025-04-15 18:48 | EKG12_ITS ---
Test Reason : SYNCOPAL Blood Pressure : */* mmHG Vent. Rate : 102 BPM Atrial Rate : 102 BPM P-R Int : 154 ms QRS Dur : 92 ms QT Int : 374 ms P-R-T Axes : 66 69 69 degrees QTcB Int : 487 ms Sinus tachycardia Possible Left atrial enlargement RSR' or QR pattern in V1 suggests right ventricular conduction delay QTcB >= 480 msec Abnormal ECG Confirmed by TRACY RICHARDSON, ANISA ([id number]), image editor MAYRA SMALL ([id number]) on 04/17/2025 1:04:10 PM Referred By: Confirmed By: ANISA MOLINA MD
--- NOTE | 2025-04-15 18:54 | ED.RN ---
pt up to bathroom ambulated well. after washing hands pt states that she felt dizzy. collapsed in [place] eased to ground, syncopal for appx 10 seconds. lifted pt into wc second brief syncopal episode. returned pt to bed. once in bed pt had seizure lasting about 30 seconds. then a second within minutes of first lasting less than [address] gallegos at bedside initally and in bold[place]. new orders recieved. dr estrada called to room updated and no further orders. pt awake at this time. talking interacting with staff and s/o
--- OUTSIDE RECORDS SUMMARY | 2025-04-15 18:54 | XMS RPT_ITS | CCD ---
Author Organization [facility] Care Team Providers Care It Service Continuity Supervisor Name Role Phone Amandeep Loredo Primary Care Provider Dr. Ari Sotomayor Primary Care Provider [phone] Dr. Ari Sotomayor Referring Provider LILIAN Mcgraw Attending Provider Amandeep Loredo DO Primary Care Provider [phone] Amandeep Loredo DO Primary Care Provider DR AMANDEEP LOREDO DO Primary Care Physician BELINDA COVARRUBIAS MD Attending Unavailable DR AMANDEEP LOREDO DO Primary Care Unavailab Amandeep King DO Primary Care Provider Unavailable Primary Care Provider UnavailAri Quezada DO Primary Care Provider Dr. Amandeep Loredo DO Primary Care Provider [phone] Dr. Luis Angel Morales DO Attending Provider Dr. Luis Angel Morales DO Referring Provider Dr. Luis Angel Morales DO Emergency Provider Dr. Franki Flynn DO Emergency Provider Dr. Amandeep Loredo DO Primary Care Provider Dr. Franki Flynn DO Attending Provider Dr. Zain Carvajal MD Emergency Provider [phone] Jordin Chisholm Attending Unavailable Amandeep Loredo Primary Care Unavailable Narciso Baron Attending Unavailable Amandeep Loredo Primary Care Unavailable Amandeep Loredo Referring Unavailable Trevor Pisano Attending Unavailable [facility], [place] Primary Care Unavailable [facility], [place] Primary Care Unavailable Franki Flynn Attending Unavailable [facility], [place] Primary Care Unavailable Zain Carvajal Attending Unavailable Luis Angel Morales Attending Unavailable Luis Angel Morales Referring Unavailable Petria, Amandeep Primary Care Unavailable Petria, Amandeep Primary Care Unavailable Mattie Jeffrey Attending Unavailable [facility] Unavailable Kenny Kaye Attending Unavailable Wei RICHARDSON, Dr. Pittman Attending Provider Dr. Alfred Parkinson DO Emergency Provider Allergies Allergy Classification Reported Allergen(s) Allergy Type Date of Onset Reaction(s) Facility Acetaminophen / HYDROcodone (1 source) Acetaminophen / HYDROcodone Drug Allergy 04-21-20 12 [facility] acetaminophen / propoxyphene (1 source) acetaminophen / propoxyphene [facility] Penicillins (antibiotic) (1 source) Penicillins Drug Allergy 07-05-20 02 [facility] Work Phone: (20 sources) Acetaminophen / HYDROcodone Drug Allergy 04-21-20 12 Itching, Rash [place], [place] (16 sources) Adhesive Tape; Translations: [adhesive tape] Propensity to adverse reactions to drug 04-24-20 15 Other [place], [place] Comment on above: BLISTERING (20 sources) bee venom Propensity to adverse reactions to drug 02-01-20 16 Chest tightness [place] (3 sources) Latex Propensity to adverse reactions to drug 04-11-20 19 [place] (5 sources) Penicillins Propensity to adverse reactions to drug 04-24-20 15 Swelling, Rash [place] (20 sources) Propoxyphene; Translations: [propoxyphene] Drug Allergy 04-11-20 19 [place] (2 sources) Barium-Containing Compounds Propensity to adverse reactions to drug 04-24-20 15 [place] (20 sources) Other Propensity to adverse reactions 04-24-20 15 Shortness Of Breath, Other [place] (9 sources) Contrast media Propensity to adverse reactions 03-21-20 22 Vomiting [facility] (17 sources) HYDROcodone; Translations: [hydrocodone bitartrate] Drug Allergy 03-21-20 22 Itching [facility] (17 sources) Propoxyphene; Translations: [propoxyphene napsylate] Drug Allergy 03-21-20 22 Rash [facility] (4 sources) PLASTIC TAPE Allergy to substance 03-21-20 22 blistering [facility] Work Phone: (14 sources) Penicillins Allergy to substance 05-04-20 22 Anaphylaxis [facility] (20 sources) Honey bee venom Propensity to adverse reactions 04-11-20 19 [facility] (20 sources) HYDROcodone Drug Allergy 02-01-20 16 [facility] (20 sources) Latex Propensity to adverse reactions 04-11-20 19 [facility] (20 sources) Penicillins Drug Allergy 07-05-20 02 Rash, Swelling [facility] (20 sources) Barium-Containing Compounds Drug Intolerance 04-24-20 15 [facility] (20 sources) Iodinated Contrast Media Drug Intolerance 10-08-19 16 Nausea And Vomiting [facility] (7 sources) Triiodobenzoic Acids Propensity to adverse reactions 02-16-20 23 Vomiting [facility] (1 source) Acetaminophen / HYDROcodone; Translations: [acetaminophen-hy drocodone] Drug Allergy [facility] (1 source) Contrast media; Translations: [iodinated radiocontrast agents] Allergy to substance [facility] (1 source) Penicillin; Translations: [penicillins] Drug Allergy [facility] (7 sources) Penicillin G Drug Allergy 02-01-20 16 [facility] (7 sources) Wound Dressing Adhesive Drug Allergy 02-01-20 16 [facility] (1 source) Penicillins Drug allergy (disorder) 03-14-20 25 [facility] (1 source) Iodinated Contrast Media Drug allergy (disorder) 03-14-20 25 [facility] (1 source) venom-honey bee Drug allergy (disorder) 03-14-20 25 [facility] Medications Current Medications Medication Drug Class(es) Dates Sig (Normalized) Sig (Original) acetaminophen 325 mg / oxyCODONE hydrochloride 5 mg oral tablet (20 sources) Opioid Agonist Start: 01-05-2025 take 1 tablet by mouth every six hours as needed for pain Oxycodone-Acetamin ophen (Percocet) 5-325 mg tablet Active 1 {tbl} PO EVERY 6 HOURS as needed for pain 12 4 0 March 14, 2025 Spasm of back muscles Acute thoracic myofascial strain Muscle spasm of back Strain of muscle and tendon of unspecified wall of thorax, initial encounter Start: 01-24-2024 End: 05-11-2024 Oxycodone-Acetaminophen (Per cocet) 5-325 mg tablet Discontinued 1 {tbl} PO Q8H as needed for pain 10 3 0 January 24, 2024 May 11, 2024 9:37pm Sprain of left elbow Unspecified sprain of left elbow, initial encounter Start: 11-25-2022 End: 11-25-2022 oxyCODONE-acetaminophen (Per cocet) 5-325 MG per tablet 1 tablet Start: 11-06-2022 End: 11-14-2022 take 1-2 tablets by mouth every four hours as needed for pain, then take 6 tablets by mouth once daily as needed for pain, then take 6 tablets by mouth once daily as needed for pain oxyCODONE-acetaminophen (Percocet) 5-325 MG tablet Indications: Status post spinal surgery Take 1-2 tablets by mouth every 4 hours as needed for severe pain (7-10) (MAX 6 TABLETS DAILY) for up to 7 days. MAX 6 TABLETS DAILY. 42 tablet 0 11/06/2022 11/13/2022 Discontinued (Reorder) Start: 08-24-2022 End: 06-29-2024 Oxycodone-Acetaminophen (Per cocet) 5-325 mg tablet Discontinued 1 {tbl} PO EVERY 6 HOURS as needed for pain 12 3 0 September 23, 2022 May 11, 2024 9:37pm Right lower lobe pneumonia Anterior chest wall pain Pneumonia, unspecified organism Other chest pain Start: 08-24-2022 take 1 tablet by jono th every six hours as needed Oxycodone-Acetaminophen Active 1 TABLET PO EVERY 6 HOURS NEEDED 10 3 August 24, 2022 Start: 06-28-2022 End: 07-02-2022 Oxycodone-Acetaminophen (Per cocet) 5-325 mg tablet Discontinued 1 {tbl} PO EVERY 6 HOURS as needed for pain 10 3 0 June 28, 2022 July 02, 2022 1:11pm Fracture of phalanx of finger Crushing injury Other injury of unspecified body region, initial encounter Start: 05-04-2022 take 1 tablet by jono th every six hours as needed Oxycodone-Acetaminophen Active 1 TABLET PO EVERY 6 HOURS NEEDED 12 3 May 04, 2022 Start: 03-21-2022 take 1 tablet by jono th every four hours Oxycodone-Acetaminophen (Percocet) 5-325 mg tablet Active 1 TABLET PO Q4H 14 4 March 21, 2022 Start: 05-14-2020 oxyCODONE-acet aminophen (PERCOCET) 5-325 MG per tablet 1 tablet Start: 05-14-2020 End: 05-14-2020 take 1 tablet by mouth every four hours as needed for pain 1 tablet, Oral, EVERY 4 HOURS PRN, Pain Moderate (4-6), Starting 05/14/20 at 0048 Maximum dose of acetaminophen is 4000 mg from all sources in 24 hours. Start: 02-27-2020 take 1 tablet by jono th every eight hours as needed Oxycodone-Acetaminophen Active 1 TABLET PO EVERY 8 HOURS NEEDED February 27, 2020 12:00am Start: 09-25-2019 End: 09-28-2019 Oxycodone-Acetaminophen 1 TA BLET tablet Discontinued 1 {tbl} PO EVERY 6 HOURS NEEDED as needed for Pain 12 3 0 September 25, 2019 September 27, 2019 1:00am September 28, 2019 1:08am Calculus of kidney Calculus of kidney Start: 09-25-2019 End: 09-28-2019 take 1 tablet by mouth every six hours as needed Oxycodone-Acetaminophen Discontinued 1 TABLET PO EVERY 6 HOURS NEEDED 12 3 September 25, 2019 September 28, 2019 1:08am Start: 05-30-2019 End: 06-06-2019 Oxycodone-Acetaminophen 1 TA BLET tablet Discontinued 1 {tbl} PO EVERY 6 HOURS NEEDED as needed for Pain 12 3 0 May 30, 2019 June 01, 2019 12:00am June 06, 2019 12:09am Cervical radicular pain Radiculopathy, cervical region Start: 05-30-2019 End: 06-06-2019 take 1 tablet by mouth every six hours as needed Oxycodone-Acetaminophen Discontinued 1 TABLET PO EVERY 6 HOURS NEEDED 12 3 May 30, 2019 June 06, 2019 12:09am Start: 05-13-2019 End: 05-16-2019 take 1-2 tablets by mouth every eight hours as needed for pain oxyCODONE-acetaminophen (PERCOCET) 5-325 MG per tablet Indications: Bilateral low back pain without sciatica, unspecified chronicity Take 1-2 tablets by mouth every 8 hours as needed for Pain for up to 3 days. 12 tablet 0 05/13/2019 05/16/2019 Active Start: 05-12-2019 End: 05-12-2019 oxyCODONE-acetaminophen (PER COCET) 5-325 MG per tablet 1 tablet Start: 01-29-2016 End: 02-01-2016 Oxycodone-Acetaminophen (Per cocet) 1 EACH tablet Discontinued 1 {tbl} PO Q8H as needed for Pain January 29, 2016 10:17pm February 01, 2016 1:40pm Start: 08-01-2015 End: 01-29-2016 Oxycodone-Acetaminophen (Per cocet) 1 EACH tablet Discontinued 1 {tbl} PO EVERY 6 HOURS NEEDED as needed for Pain 15 0 August 01, 2015 11:28am January 29, 2016 10:18pm Start: 09-07-2013 End: 05-13-2019 Oxycodone-Acetaminophen 1 TA BLET tablet Discontinued 1 - 2 {tbl} PO EVERY 4 HOURS NEEDED as needed for Pain 12 February 22, 2016 12:00am March 01, 2016 2:20pm take 1 tablet by jono th three times daily oxyCODONE-acetaminophen (PERCOCET) 5-325 MG per tablet Take 1 tablet by mouth 3 times daily. 0 Suspended [id number] 200 actuat albuterol 0.09 mg/actuat metered dose inhaler (20 sources) beta2-Adrenergic Agonist Start: 04-20-2019 take 1 puff(s) by inhalation every four hours as needed Albuterol Sulfate (Ventolin Hfa) 1 INHALER inhaler Active 2 PUFF INHALATION EVERY 4 HOURS NEEDED January 26, 2022 11:00pm Start: 12-09-2018 End: 07-01-2028 take 2 puff(s) by inhalation every six hours as needed albuterol 108 (90 Base) MCG/ACT inhaler Inhale 2 puffs every 6 hours as needed. 0 06/05/2022 Active Start: 12-09-2018 take 2 puff(s) by in halation every six hours as needed for wheezing albuterol sulfate HFA 108 (90 Base) MCG/ACT inhaler Inhale 2 puffs into the lungs every 6 hours as needed for Wheezing 3 Inhaler 5 12/09/2018 Active Start: 03-14-2017 albuterol 0 Re fill(s) Start Date: 03/14/17 Status: Ordered ascorbic acid 60 mg / beta carotene 5000 unt / copper sulfate 40 mg / dl-alpha tocopheryl acetate 30 unt / sodium selenite 0.04 mg / zinc oxide 40 mg oral tablet (3 sources) Vitamin C Start: 05-14-2020 take 1 tablet by mouth once daily 1 tablet, Oral, DAILY, First dose on Thu05/14/20 at 0900 End: 05-14-2020 Multiple Vitamins-Minerals ( MULTIPLE VITAMINS/WOMENS) TABS Take by mouth 0 05/14/2020 Discontinued (LIST CLEANUP) azithromycin 250 mg oral tablet (1 source) Macrolide Antimicrobial Start: 04-14-2025 take 1 tablet by mouth once daily Azithromycin 250 mg tablet Active 250 mg PO DAILY 4 0 April 14, 2025 12:00am cetirizine hydrochloride 10 mg oral tablet (11 sources) Histamine-1 Receptor Antagonist Start: 11-26-2022 End: 11-28-2023 cetirizine (ZyrTEC) 10 MG tablet Take 1 tablet (10 mg) by mouth daily. Do not start before November 28, 2022. 30 tablet 11 11/28/2022 11/28/2023 Active ciprofloxacin 500 mg oral tablet (1 source) Quinolone Antimicrobial Start: 09-13-2019 End: 09-23-2019 take 1 tablet by mouth twice daily ciprofloxacin (CIPRO) 500 MG tablet Take 1 tablet by mouth 2 times daily for 10 days 20 tablet 0 09/13/2019 09/23/2019 Active cyclobenzaprine hydrochloride 10 mg oral tablet (20 sources) Muscle Relaxant Start: 05-11-2024 take 1 tablet by mouth three times daily as needed for muscle spasms Cyclobenzaprine 10 mg tablet Active 10 mg PO THREE TIMES A DAY as needed for Muscle Spasm 20 0 May 11, 2024 12:00am Start: 10-07-2023 End: 05-11-2024 take 1 tablet by mouth three times daily as needed for muscle spasms Cyclobenzaprine 5 mg tablet Discontinued 5 mg PO THREE TIMES A DAY as needed for muscle spasm 20 0 October 07, 2023 1:00am May 11, 2024 9:37pm Start: 03-06-2023 End: 03-13-2023 cyclobenzaprine 10 mg oral t ablet Dose : 10 mg = 1 tab(s), Oral, TID, X 7 day(s), # 21 tab(s), 0 Refill(s), 03/13/23 1:17:00 EDT Start Date: 03/06/23 Stop Date: 03/13/23 Status: Ordered Start: 02-27-2020 End: 07-02-2022 take 1 tablet by mouth three times daily as needed for muscle spasms Cyclobenzaprine 10 MG tablet Discontinued 10 mg PO THREE TIMES A DAY as needed for Muscle Spasm February 27, 2020 12:00am July 02, 2022 11:40am DULoxetine 30 mg delayed release oral capsule (2 sources) Serotonin and Norepinephrine Reuptake Inhibitor Start: 01-28-2018 take 1 capsule by mouth once daily DULoxetine (CYMBALTA) 30 MG extended release capsule Take 1 capsule by mouth daily 30 capsule 3 01/28/2018 Active ergocalciferol 1.25 mg oral capsule (7 sources) Provitamin D2 Compound Start: 01-21-2023 take 1 capsule by mouth every week Vitamin D, Ergocalciferol, 66727 units capsule Take 50,000 Units by mouth 1 (one) time per week. For 3 total months 4 capsule 2 01/21/2023 Active 60 actuat formoterol fumarate 0.005 mg/actuat / mometasone furoate 0.2 mg/actuat metered dose inhaler (1 source) Corticosteroid, beta2-Adrenergic Agonist Start: 05-14-2020 take 2 puff(s) by inhalation twice daily 2 puff, Inhalation, 2 TIMES DAILY, First dose on Thu05/14/20 at 0115 Substituted for Fluticasone-Salm eterol (ADVAIR DPI) gabapentin 400 mg oral capsule (20 sources) Anti-epileptic Agent Start: 09-04-2024 take 2 capsules by mouth once daily Gabapentin 400 mg capsule Active 800 mg PO DAILY September 04, 2024 1:00am Start: 11-06-2022 gabapentin (Ne urontin) capsule 100 mg Start: 10-01-2022 End: 11-27-2023 take 1 capsule by mouth three times daily gabapentin (Neurontin) 300 MG capsule Take 1 capsule (300 mg) by mouth 3 times daily. 90 capsule 0 11/10/2022 12/10/2022 Active Start: 07-18-2022 take 100 mg by mouth three times daily Gabapentin Active 100 MG PO THREE TIMES A DAY 30 July 18, 2022 12:00am Start: 03-21-2019 End: 07-02-2022 take 1 capsule by mouth three times daily at mealtime Gabapentin 300 MG capsule Discontinued 300 mg PO 3 TIMES DAILY WITH MEALS 60 0 June 03, 2019 12:00am July 02, 2022 11:41am Start: 07-22-2016 End: 07-25-2016 Gabapentin 600 MG tablet Discontinued 300 mg PO TWICE A DAY July 22, 2016 9:21pm July 25, 2016 4:41pm Start: 07-22-2016 End: 07-25-2016 take 300 mg by mouth twice daily Gabapentin Discontinu ed 300 MG PO TWICE A DAY July 22, 2016 9:21pm July 25, 2016 4:41pm Start: 05-09-2016 End: 07-22-2016 take 2 tablets by mouth three times daily at mealtime Gabapentin 600 MG tablet Discontinued 1200 mg PO 3 TIMES DAILY WITH MEALS May 09, 2016 12:00am July 22, 2016 9:21pm Start: 05-09-2016 End: 07-22-2016 take 1200 mg by mouth three times daily at mealtime Gabapentin Discontinued 1200 MG PO 3 TIMES DAILY WITH MEALS 90 May 09, 2016 12:00am July 22, 2016 9:21pm Start: 03-01-2016 End: 05-09-2016 take 2 capsules by mouth three times daily at mealtime Gabapentin 400 MG capsule Discontinued 800 mg PO 3 TIMES DAILY WITH MEALS 90 0 March 01, 2016 12:00am May 09, 2016 2:39pm Start: 03-01-2016 End: 05-09-2016 take 800 mg by mouth three times daily at mealtime Gabapentin Discontinued 800 MG PO 3 TIMES DAILY WITH MEALS 90 March 01, 2016 12:00am May 09, 2016 2:39pm Start: 02-01-2016 End: 03-01-2016 take 2 capsules by mouth three times daily at mealtime Gabapentin 300 MG capsule Discontinued 600 mg PO 3 TIMES DAILY WITH MEALS 120 0 February 01, 2016 12:00am March 01, 2016 2:06pm Start: 02-01-2016 End: 03-01-2016 take 600 mg by mouth three times daily at mealtime Gabapentin Discontinued 600 MG PO 3 TIMES DAILY WITH MEALS 120 February 01, 2016 12:00am March 01, 2016 2:06pm hydrOXYzine pamoate 25 mg oral capsule (9 sources) Antihistamine Start: 11-25-2022 End: 12-07-2022 take 1 capsule by mouth every six hours as needed hydrOXYzine pamoate (Vistaril) 25 MG capsule Take 1 capsule (25 mg) by mouth every 6 hours as needed for itching for up to 10 days. 30 capsule 0 11/27/2022 Active levETIRAcetam 1000 mg oral tablet (20 sources) Start: 09-04-2024 take 1 tablet by mouth every twelve hours Levetiracetam (Keppra) 1,000 mg tablet Active 1000 mg PO Q12H September 04, 2024 1:00am Start: 11-27-2022 End: 07-27-2023 take 1.5 tablets by mouth twice daily levETIRAcetam (Keppra) 1000 MG tablet Take 1.5 tablets (1,500 mg) by mouth 2 times daily. 90 tablet 0 07/27/2023 Active Start: 11-07-2022 End: 11-10-2022 take 1500 mg by mouth twice daily 1,500 mg, Oral, 2 times daily, First dose on Thu11/07/22 at 2100, Recovery & On Unit Start: 05-15-2020 take 2 tablets by mo uth twice daily levETIRAcetam (KEPPRA) 750 MG tablet Take 2 tablets by mouth 2 times daily 40 tablet 0 05/15/2020 Active Start: 05-14-2020 levETIRAcetam (KEPPRA) tablet 1,500 mg Start: 12-04-2019 take 2 tablets by mo uth three times daily Levetiracetam 750 MG tablet Active 1500 mg PO THREE TIMES A DAY December 04, 2019 12:00am seizures Start: 12-04-2019 take 1500 mg by mout h three times daily Levetiracetam Active 1500 MG PO THREE TIMES A DAY December 04, 2019 12:00am Start: 11-11-2019 End: 05-14-2020 take 1 tablet by mouth twice daily levETIRAcetam (KEPPRA) 250 MG tablet Take 1 tablet by mouth 2 times daily 60 tablet 0 11/11/2019 05/14/2020 Discontinued (LIST CLEANUP) Start: 09-06-2015 End: 10-30-2022 take 1 tablet by mouth twice daily Levetiracetam 1,000 MG tablet Discontinued 1000 mg PO TWICE A DAY 0 February 01, 2016 12:00am December 31, 2016 1:28pm End: 11-27-2022 levETIRAcetam (Keppra) 1000 MG tablet Take 1,500 mg by mouth 2 times daily. 0 11/27/2022 Discontinued (Reorder) linaclotide 0.29 mg oral capsule (2 sources) Guanylate Cyclase-C Agonist Start: 05-16-2020 take 1 capsule by mouth once daily before breakfast linaclotide (LINZESS) 290 MCG CAPS capsule Take 1 capsule by mouth every morning (before breakfast) 30 capsule 1 05/16/2020 Active Start: 05-15-2020 linaclotide (L INZESS) capsule 290 mcg metaxalone 800 mg oral tablet (2 sources) Start: 03-14-2025 take 1 tablet by mouth three times daily Metaxalone 800 mg tablet Active 800 mg PO THREE TIMES A DAY 21 7 0 March 14, 2025 12:00am methocarbamol 750 mg oral tablet (20 sources) Muscle Relaxant Start: 11-27-2022 End: 12-04-2022 take 1 tablet by mouth three times daily as needed for muscle spasms methocarbamol (Robaxin) 750 MG tablet Indications: Lumbar radiculopathy Take 1 tablet (750 mg) by mouth 3 times daily as needed for muscle spasms for up to 7 days. 21 tablet 0 11/27/2022 Active Start: 11-25-2022 End: 11-27-2022 take 1500 mg by mouth three times daily 1,500 mg, Oral, 3 times daily, First dose on Thu11/25/22 at 2200 Start: 11-21-2022 End: 12-05-2022 take 2 tablets by mouth three times daily methocarbamol (Robaxin) 750 MG tablet Indications: Lumbar radiculopathy Take 2 tablets (1,500 mg) by mouth 3 times daily for 14 days. 84 tablet 0 11/21/2022 11/27/2022 Discontinued (Reorder) Start: 11-06-2022 End: 11-10-2022 take 1 tablet by mouth every eight hours 1,500 mg, Oral, Every 8 hours, First dose on Lana 11/06/22 at 2030, Phase II/On Unit Start: 07-18-2022 take 1000 mg by mout h four times daily as needed Methocarbamol Active 1000 MG PO 4 TIMES DAILY NEEDED 56 July 18, 2022 11:56pm Start: 07-11-2022 End: 10-30-2022 methocarbamol (Robaxin) 750 MG tablet Take 2 tablets (1,500 mg) by mouth in the morning and 2 tablets (1,500 mg) at noon and 2 tablets (1,500 mg) before bedtime. 180 tablet 0 07/11/2022 10/30/2022 Discontinued (Therapy completed) metoprolol tartrate 25 mg oral tablet (1 source) beta-Adrenergic Manny Start: 10-11-2015 take 1 tablet by mouth once daily metoprolol (LOPRESSOR) 25 MG tablet Take 1 Tablet by mouth daily. 60 Tablet 3 10/11/2015 Active miconazole nitrate 0.02 mg/mg topical powder (11 sources) Azole Antifungal Start: 11-26-2022 End: 11-27-2022 miconazole (Micotin) 2 % powder Apply topically 2 times daily. 71 g 0 11/27/2022 Active Misc. Devices misc (20 sources) Start: 10-13-2022 Misc. Devices misc by Does not apply route ORTHOFIX BONE GROWTH STIMULATOR Location: Cervical Dr[facility] [address] Dr[address] Serna Please coordinate fitting and education with the patient. 1 Device 0 10/13/2022 Suspended Start: 10-13-2022 Misc. Devices misc by Does not apply route ORTHOFIX BONE GROWTH STIMULATOR Location: Cervical Dr[facility] [address] Dr. Serna Please coordinate fitting and education with the patient. 1 Device 0 10/13/2022 Active Multiple Vitamins-Minerals (Centrum Silver 50+Women) tablet (20 sources) take 1 tablet by mouth in the morning Multiple Vitamins-Minerals (Centrum Silver 50+Women) tablet Take 1 tablet by mouth in the morning. 0 Suspended take 1 tablet by mouth in the mo rning Multiple Vitamins-Minerals (Centrum Silver 50+Women) tablet Take 1 tablet by mouth in the morning. 0 Active Multiple Vitamins-Minerals (MULTIPLE VITAMINS/WOMENS) TABS (2 sources) Multiple Vitamin s-Minerals (MULTIPLE VITAMINS/WOMENS) TABS Take by mouth 0 Active Vnecpqbe-Yiv-Ndiy-Fa-Lutein (10 sources) Start: 03-21-2019 take 1 tablet by mouth once daily Dfzxndan-Iza-Nwgu-Fa-Lutein Active 1 TABLET PO DAILY March 20, 2019 11:00pm Start: 03-21-2019 take 1 tablet by jono th once daily Nokxcjxa-Zvg-Updb-Fa-Lutein Active 1 TAB LET PO DAILY March 21, 2019 12:00am Dnhphpmo-Mee-Xukk-Fa-Vit K-Lut (3 sources) Start: 03-21-2019 take 1 tablet by mouth once daily Rhndvham-Iih-Izad-Fa-Vit K-Lut Active 1 TABLET PO DAILY March 21, 2019 12:00am Start: 03-21-2019 take 1 tablet by jono th once daily Paqvwmta-Ktv-Egwe-Fa-Vit K-Lut Active 1 TABLET PO DAILY March 20, 2019 11:00pm Bghskpqa-Hpn-Sfmq-Fa-Vit K-Lut 1 EACH tablet (3 sources) Start: 03-21-2019 take 1 tablet by mouth once daily Hwnpadkh-Ruz-Uptc-Fa-Vit K-Lut 1 EACH tablet Active 1 {tbl} PO DAILY March 21, 2019 12:00am supplement Start: 03-21-2019 take 1 tablet by jono th once daily Fxixtmoj-Mof-Gckb-Fa-Vit K-Lut 1 EACH tablet Active 1 {tbl} PO DAILY March 21, 2019 12:00am mupirocin 0.02 mg/mg nasal ointment (7 sources) RNA Synthetase Inhibitor Antibacterial Start: 11-03-2022 End: 11-10-2022 mupirocin (Bactroban) 2 % nasal ointment Apply to each nostril 2 times daily for 7 days. Use one pea-sized dose in each nostril twice daily for seven (7) days. After application, press sides of nose together and gently massage. 7 g 0 11/03/2022 11/10/2022 Active petrolatum 0.41 mg/mg topical ointment (11 sources) Start: 11-27-2022 End: 11-27-2023 mineral oil-hydrophilic petrolatum (Aquaphor) ointment Apply 1 application topically 2 times daily as needed for dry skin. 198 g 0 11/27/2022 11/27/2023 Active Start: 11-25-2022 End: 11-27-2022 mineral oil-hydrophilic coretta olatum (Aquaphor) ointment 1 application sennosides, retirement 8.6 mg oral tablet (4 sources) Start: 05-15-2020 End: 06-14-2020 take 2 tablets by mouth once daily senna (SENOKOT) 8.6 MG tablet Take 2 tablets by mouth nightly 60 tablet 1 05/15/2020 06/14/2020 Active Start: 05-14-2020 senna (SENOKOT ) tablet 17.2 mg take 1 tablet by jono th once daily senna (SENOKOT) 8.6 MG tablet Take 1 tablet by mouth daily 0 Active sodium chloride flush 0.9 % injection 3 mL (1 source) Start: 05-12-2019 sodium chlorid e flush 0.9 % injection 3 mL sucralfate 1000 mg oral tablet (20 sources) Aluminum Complex Start: 07-27-2023 sucralfate (C arafate) 1 g tablet One tid pc meals 63 tablet 1 07/27/2023 Active Start: 02-22-2019 End: 05-31-2019 take 1 tablet by mouth four times daily Sucralfate 1 GM tablet Discontinued 1 g PO 4 TIMES DAILY 120 0 March 23, 2019 6:43pm May 31, 2019 10:55pm tamsulosin hydrochloride 0.4 mg oral capsule (2 sources) alpha-Adrenergic Manny Start: 09-19-2019 End: 05-14-2020 take 0.4 mg by mouth once daily 0.4 mg, Oral, DAILY, First dose on Thu05/14/20 at 0900 Do not crush or break. tiZANidine 2 mg oral capsule (20 sources) Central alpha-2 Adrenergic Agonist Start: 02-28-2025 take 1 capsule by mouth three times daily as needed Tizanidine 2 mg capsule Active 2 mg PO THREE TIMES A DAY as needed for muscle spasticity 14 0 October 21, 2024 1:00am Start: 11-06-2022 End: 11-27-2022 take 1 tablet by mouth every eight hours as needed 4 mg, Oral, Every 8 hours PRN, muscle spasms, Starting on Thu11/26/22 at 1911 Start: 05-14-2020 take 4 mg by mouth t hree times daily 4 mg, Oral, 3 TIMES DAILY, First dose on Thu05/14/20 at 0900 End: 05-14-2020 take 1 tablet by mouth twice daily as needed tiZANidine (ZANAFLEX) 4 MG tablet Take 4 mg by mouth 2 times daily as needed 0 05/14/2020 Discontinued (LIST CLEANUP) valproic acid 500 mg delayed release oral capsule (1 source) Mood Stabilizer, Anti-epileptic Agent Start: 03-14-2017 take 2 tablets by mouth twice daily valproic acid 500 mg oral delayed release capsule (NF) 2 tab(s), BID, 0 Refill(s) Start Date: 03/14/17 Status: Ordered Completed/Discontinued Medications Medication Drug Class(es) Dates Sig (Normalized) Sig (Original) acetaminophen 500 mg oral tablet (8 sources) Start: 11-25-2022 End: 11-27-2022 take 1 tablet by mouth every eight hours acetaminophen (Tylenol) tablet 1,000 mg Start: 11-06-2022 End: 11-10-2022 take 1 tablet by mouth every six hours 1,000 mg, Oral, Every 6 hours, First dose on Thu11/06/22 at 2030, Phase II/On Unit Maximum dose of acetaminophen is 4000 mg from all sources in 24 hours. Start: 10-03-2022 End: 10-04-2022 take 1 tablet by mouth every four hours as needed for pain acetaminophen (Tylenol) tablet 650 mg acetaminophen 325 mg / HYDROcodone bitartrate 5 mg oral tablet (20 sources) Opioid Agonist Start: 07-11-2018 End: 07-13-2018 Hydrocodone-Acetaminophen 1 EACH tablet Discontinued 1 NMA PO THREE TIMES A DAY as needed for Pain 10 2 0 July 11, 2018 9:32pm July 12, 2018 1:00am July 13, 2018 1:10am Chest wall pain Other chest pain Start: 07-11-2018 End: 07-13-2018 Hydrocodone-Acetaminophen Di scontinued 1 EACH PO THREE TIMES A DAY 10 July 11, 2018 9:32pm July 13, 2018 1:10am Start: 12-28-2016 End: 12-31-2016 Hydrocodone-Acetaminophen 1 TABLET tablet Discontinued 1 {tbl} PO TWICE A DAY December 28, 2016 12:00am December 31, 2016 1:28pm Start: 12-28-2016 End: 12-31-2016 take 1 tablet by mouth twice daily Hydrocodone-Acetaminophen Discontinued 1 TABLET PO TWICE A DAY December 28, 2016 12:00am December 31, 2016 1:28pm Start: 11-10-2016 End: 11-10-2016 Hydrocodone-Acetaminophen 1 TABLET tablet Discontinued 1 - 2 {tbl} PO EVERY 4 HOURS NEEDED as needed for Pain November 10, 2016 12:00am November 10, 2016 11:46pm Start: 11-10-2016 End: 11-10-2016 take 1 tablet by mouth every four hours as needed Hydrocodone-Acetaminophen Discontinued 1 - 2 TABLET PO EVERY 4 HOURS NEEDED November 10, 2016 12:00am November 10, 2016 11:46pm albuterol sulfate HFA 108 (90 Base) MCG/ACT inhaler (1 source) Start: 11-11-2019 take 2 puff(s) by inhalation every six hours as needed for wheezing albuterol sulfate HFA 108 (90 Base) MCG/ACT inhaler Inhale 2 puffs into the lungs every 6 hours as needed for Wheezing 3 Inhaler 5 11/11/2019 Suspended ALPRAZolam 0.25 mg disintegrating oral tablet (2 sources) Benzodiazepine Start: 11-06-2022 End: 11-06-2022 ALPRAZolam (Xanax) disintegrating tablet 0.25 mg aluminum hydroxide 40 mg/ml / magnesium hydroxide 40 mg/ml / simethicone 4 mg/ml oral suspension (2 sources) Start: 11-25-2022 End: 11-25-2022 take 10 mL by mouth once 10 mL, Oral, Once, On Thu11/25/22 at 2200, For 1 dose Apple Cider Vinegar (1 source) take 1 tablet by mouth once daily APPLE CIDER VINEGAR PO Take 1 tablet by mouth daily 0 Suspended aspirin 81 mg delayed release oral tablet (20 sources) Platelet Aggregation Inhibitor, Nonsteroidal Anti-inflammatory Drug Start: 11-07-2022 End: 11-10-2022 take 81 mg by mouth once daily 81 mg, Oral, Daily, First dose on Thu11/07/22 at 1615, For 30 days, Recovery & On Unit Start: 11-07-2022 End: 12-07-2022 take 81 mg by mouth once daily 81 mg, Oral, Daily, Fir st dose on Thu11/26/22 at 0900 Do not crush, chew, or split. Start: 05-14-2020 take 81 mg by mouth once daily 81 mg, Oral, DAILY, First dose on Thu05/14/20 at 0900 Start: 07-01-2019 take 1 tablet by jono th once daily aspirin 81 MG tablet Indications: Family history of coronary artery disease Take 1 tablet by mouth daily 30 tablet 0 07/01/2019 Suspended Start: 12-31-2016 End: 03-23-2019 take 1 tablet by mouth once daily Aspirin 81 MG Tab.Chew Discontinued 81 mg PO DAILY@0800 0 December 31, 2016 12:00am March 23, 2019 5:56pm take 1 tablet by jono once daily aspirin 81 MG tablet Take 81 mg by mouth daily 0 Active calcium chloride 0.0014 meq/ ml / potassium chloride 0.004 meq/ml / sodium chloride 0.103 meq/ml / sodium lactate 0.028 meq/ml injectable solution (3 sources) Start: 11-26-2022 End: 11-27-2022 lactated Ringer's infusion Start: 05-14-2020 End: 05-15-2020 Intravenous, at 75 mL/hr, CO NTINUOUS, Starting Thu05/14/20 at 0115 cefdinir 300 mg oral capsule (16 sources) Cephalosporin Antibacterial Start: 07-21-2016 End: 07-25-2016 take 1 capsule by mouth every twelve hours Cefdinir 300 MG capsule Discontinued 300 mg PO Q12H July 21, 2016 1:00am July 25, 2016 4:38pm cholecalciferol 0.05 mg oral tablet (19 sources) Vitamin D Start: 11-07-2022 End: 11-10-2022 take 5000 [IU] by mouth once daily 5,000 Units, Oral, Daily, First dose on Thu11/07/22 at 1615, Recovery & On Unit Start: 10-31-2022 End: 01-29-2023 take 1 capsule by mouth once daily Cholecalciferol (Vitamin D) 125 MCG (5000 UT) capsule Take 1 capsule (125 mcg) by mouth daily. Take for 3 total months 30 capsule 2 10/31/2022 01/29/2023 Active 50 ml clindamycin 18 mg/ml injection (2 sources) Lincosamide Antibacterial Start: 11-06-2022 End: 11-08-2022 take 900 mg intravenously every eight hours 900 mg, IntraVENous, at 50 mL/hr, Administer over 60 Minutes, Every 8 hours, First dose on Lana 11/06/22 at 2200, For 2 days, Phase II/On Unit premix bag Suspected Indication (Select all that apply): Surgical Prophylaxis 1 ml dexamethasone phosphate 4 mg/ml injection (4 sources) Corticosteroid Start: 11-09-2022 End: 11-10-2022 take 6 mg intravenously every six hours dexAMETHasone (Decadron) injection 6 mg Start: 11-07-2022 End: 11-08-2022 take 6 mg intravenously every six hours 6 mg, IntraVENous, Every 6 hours, First dose on 11/07/22 at 1615, For 3 doses, Recovery & On Unit [email or web address] 5 mg oral tablet (16 sources) Benzodiazepine Start: 02-22-2016 End: 03-01-2016 take 1 tablet by mouth every eight hours as needed for muscle spasms Diazepam 5 MG tablet Discontinued 5 mg PO EVERY 8 HOURS as needed for Muscle Spasm February 22, 2016 12:00am March 01, 2016 2:21pm 1 ml diphenhydrAMINE hydrochloride 50 mg/ml cartridge (5 sources) Histamine-1 Receptor Antagonist Start: 11-25-2022 End: 11-25-2022 diphenhydrAMINE (BENADryl) injection 50 mg Start: 05-13-2020 End: 05-13-2020 diphenhydrAMINE (BENADRYL) i njection 50 mg docusate sodium 100 mg oral capsule (12 sources) Start: 11-06-2022 End: 11-27-2022 take 1 capsule by mouth twice daily docusate sodium (Colace) 100 MG capsule Take 1 capsule (100 mg) by mouth 2 times daily for 14 days. 28 capsule 0 11/06/2022 11/27/2022 Discontinued (Stop taking at discharge) docusate sodium 50 mg / sennosides, retirement 8.6 mg oral tablet (1 source) Start: 05-14-2020 End: 05-14-2020 take 1 tablet by mouth twice daily 1 tablet, Oral, 2 TIMES DAILY, First dose on Thu05/14/20 at 0115 0.4 ml enoxaparin sodium 100 mg/ml prefilled syringe (3 sources) Low Molecular Weight Heparin Start: 11-26-2022 End: 11-27-2022 inject 40 mg by subcutaneous injection every twenty-four hours 40 mg, SubCUTAneous, Every 24 hours scheduled (Daily), First dose on Thu11/26/22 at 0900 Indication of Use: Prophylaxis-DVT/PE Indications: Prophylaxis of Venous Thromboembolism Start: 05-14-2020 inject 40 mg by subc utaneous injection once daily 40 mg, Subcutaneous, DAILY, First dose on Thu05/14/20 at 0900 [id number] 0.3 ml EPINEPHrine 1 mg/ml auto-injector (16 sources) alpha-Adrenergic Agonist, beta-Adrenergic Agonist, Catecholamine Start: 12-11-2015 End: 02-01-2016 inject 0.3 mg by intramuscular injection once as needed Epinephrine 0.3 MG syringe Discontinued 0.3 mg IM ONE TIME as needed for Anaphylaxis 1 0 December 11, 2015 5:03pm February 01, 2016 1:35pm 2 ml famotidine 10 mg/ml injection (4 sources) Histamine-2 Receptor Antagonist Start: 11-25-2022 End: 11-25-2022 famotidine (Pepcid) injection 20 mg Start: 11-06-2022 End: 11-06-2022 famotidine (Pepcid) tablet 2 0 mg fluticasone propionate 0.05 mg/actuat metered dose nasal spray (20 sources) Corticosteroid Start: 11-25-2022 End: 11-27-2022 1 spray, Each Nostril, Daily PRN, rhinitis, Starting on Thu11/25/22 at 2159 Shake gently. Before first use, prime pump (press 6 times until fine spray appears). After use, clean tip and replace cap. Start: 08-24-2022 take 50 ug nasal rou te once daily Fluticasone Propionate (Flonase Allergy Relief) 50 mcg/actuation Hixson,Suspension Active 1 NMA INTRANASAL DAILY August 24, 2022 1:00am administer into each nostril Start: 08-24-2022 take 1 spray(s) nasa l route once daily Fluticasone Propionate (Flonase Allergy Relief) 50 mcg/actuation Hixson,Suspension Active 1 SPRAY INTRANASAL DAILY August 24, 2022 1:00am administer into each nostril Start: 06-05-2022 End: 02-12-2032 take 1 spray(s) nasal route in the morning fluticasone (Flonase) 50 MCG/ACT nasal spray Administer 1 spray into affected nostril(s) in the morning. 0 06/05/2022 02/12/2032 Active Start: 05-14-2020 1 spray, Nasal , DAILY, First dose on 05/14/20 at 0900 Start: 01-28-2018 End: 03-09-2029 fluticasone (FLONASE) 50 MCG /ACT nasal spray Indications: Allergic rhinitis, unspecified seasonality, unspecified trigger 1 spray by Nasal route daily 3 Bottle 3 07/01/2019 03/09/2029 Active Start: 03-14-2017 take 1 dose nasal ro dru twice daily Flonase 50 mcg/inh nasal spray Dose = 2 spray(s), Nostril, each, BID, 0 Refill(s) Start Date: 03/14/17 Status: Ordered Start: 09-30-2016 Fluticasone Pr opionate Active 2 SPRAY NASAL TWICE A DAY September 30, 2016 1:00am 60 actuat fluticasone propionate 0.25 mg/actuat / salmeterol 0.05 mg/actuat dry powder inhaler (15 sources) Corticosteroid, beta2-Adrenergic Agonist Start: 01-10-2021 End: 10-30-2022 take 1 puff(s) by inhalation in the morning Fluticasone-Salmeterol 250-50 MCG/ACT aerosol powder Inhale 1 puff in the morning and 1 puff in the evening. 0 01/10/2021 10/30/2022 Discontinued (Therapy completed) Start: 11-11-2019 End: 05-14-2020 take 1 puff(s) by inhalation every twelve hours fluticasone-salmeterol (ADVAIR DISKUS) 250-50 MCG/DOSE AEPB Inhale 1 puff into the lungs every 12 hours 60 each 5 05/15/2020 Active Start: 12-09-2018 take 1 puff(s) by in halation every twelve hours fluticasone-salmeterol (ADVAIR DISKUS) 250-50 MCG/DOSE AEPB Inhale 1 puff into the lungs every 12 hours 60 each 5 12/09/2018 Active End: 05-14-2020 take 1 puff(s) by inhalation once daily fluticasone-salmeterol (ADVAIR) 250-50 MCG/DOSE AEPB Inhale 1 puff into the lungs daily 0 05/14/2020 Discontinued (LIST CLEANUP) 1 ml HYDROmorphone hydrochloride 1 mg/ml cartridge (20 sources) Opioid Agonist Start: 11-06-2022 End: 11-06-2022 HYDROmorphone (Dilaudid) injection 0.5 mg Start: 05-13-2019 End: 05-13-2019 HYDROmorphone (DILAUDID) inj ection 1 mg Start: 05-12-2019 End: 05-12-2019 HYDROmorphone (DILAUDID) inj ection 0.5 mg Start: 03-01-2016 End: 03-01-2016 take 1 tablet by mouth every six hours Hydromorphone (Dilaudid) 4 MG tablet Discontinued 4 mg PO EVERY 6 HOURS 30 0 March 01, 2016 12:00am March 01, 2016 2:21pm HYDROmorphone (Dilaudid) injection 0.25 mg (2 sources) Start: 11-06-2022 End: 11-10-2022 HYDROmorphone (Dilaudid) injection 0.25 mg iopamidol (Isovue-370) 76 % injection 75 mL (2 sources) Start: 11-25-2022 End: 11-25-2022 iopamidol (Isovue-370) 76 % injection 75 mL iopamidol (Isovue-M) 41 % intrathecal injection 20 mL (2 sources) Start: 10-03-2022 End: 10-03-2022 iopamidol (Isovue-M) 41 % intrathecal injection 20 mL lactulose 667 mg/ml oral solution (1 source) Osmotic Laxative Start: 05-14-2020 End: 05-14-2020 20 g, Oral, ONCE, 05/14/20 at 0115, For 1 dose levETIRAcetam (Keppra) 1,500 mg in sodium chloride 0.9 % 100 mL IVPB (2 sources) Start: 11-25-2022 End: 11-27-2022 levETIRAcetam (Keppra) 1,500 mg in sodium chloride 0.9 % 100 mL IVPB levETIRAcetam (Keppra) 2,000 mg in sodium chloride 0.9 % 100 mL IVPB (2 sources) Start: 11-25-2022 End: 11-25-2022 levETIRAcetam (Keppra) 2,000 mg in sodium chloride 0.9 % 100 mL IVPB levoFLOXacin 750 mg oral tablet (10 sources) Quinolone Antimicrobial Start: 09-23-2022 End: 05-11-2024 take 1 tablet by mouth once daily Levofloxacin 750 mg tablet Discontinued 750 mg PO DAILY 6 September 23, 2022 1:00am May 11, 2024 9:37pm lidocaine hydrochloride 20 mg/ml mucous membrane topical solution (16 sources) Antiarrhythmic, Amide Local Anesthetic Start: 11-25-2022 End: 11-25-2022 15 mL, Mouth/Throat, Once, On Thu11/25/22 at 2200, For 1 dose Start: 11-17-2022 Lidocaine 5 % ointment Active 1 NMA TOPICAL THREE TIMES A DAY as needed for skin irritation 50 November 17, 2022 12:00am Start: 11-07-2022 End: 11-10-2022 Lidocaine 4 % patch 1 patch Start: 10-03-2022 End: 10-04-2022 lidocaine PF (Xylocaine) 1 % injection Start: 05-13-2020 End: 05-13-2020 lidocaine viscous hcl (XYLOC AYAZ) 2 % solution 15 mL Start: 05-13-2020 End: 05-13-2020 lidocaine viscous hcl (XYLOC AYAZ) 2 % solution 1 ml LORazepam 2 mg/ml injection (19 sources) Benzodiazepine Start: 11-06-2022 End: 11-06-2022 LORazepam (Ativan) injection 0.5 mg Start: 01-15-2015 End: 01-18-2015 take 1 tablet by mouth three times daily as needed for anxiety Lorazepam 1 MG tablet Discontinued 1 mg PO 3 TIMES DAILY NEEDED as needed for Anxiety January 15, 2015 12:00am January 18, 2015 8:44am take 1 tablet by jono every six hours as needed LORazepam (ATIVAN) 0.5 MG tablet Take 0.5 mg by mouth every 6 hours as needed Active melatonin 5 mg oral tablet (20 sources) Start: 11-25-2022 End: 11-27-2022 take 10 mg by mouth once daily as needed for sleep 10 mg, Oral, Nightly PRN, sleep, Starting on Thu11/25/22 at 2159 Start: 11-07-2022 End: 11-10-2022 take 10 mg by mouth once daily as needed for sleep 10 mg, Oral, Nightly PRN, sleep, Starting on Thu11/07/22 at 1602, Recovery & On Unit take 1 capsule by mo [facility] once daily as needed Melatonin 10 MG capsule Take 10 mg by mouth Nightly as needed. 0 Active melatonin 10 mg / vitamin b6 10 mg extended release oral tablet (16 sources) Start: 06-21-2019 End: 07-02-2022 take 1 tablet by mouth at bedtime as needed Melatonin-Pyridoxine Hcl (B6) 1 EACH tablet,ext release multiphase Discontinued 1 {tbl} PO AT BEDTIME as needed for Sleep June 21, 2019 12:00am July 02, 2022 11:42am Start: 06-21-2019 End: 07-02-2022 take 1 tablet by mouth at bedtime Melatonin-Pyridoxine Hcl (B6) Discontinued 1 TABLET PO AT BEDTIME June 21, 2019 12:00am July 02, 2022 11:42am methylPREDNISolone 40 mg injection (20 sources) Corticosteroid Start: 11-25-2022 End: 11-25-2022 methylPREDNISolone sod suc (PF) (SOLU-Medrol) 40 MG injection 40 mg Start: 11-11-2022 End: 11-27-2022 methylPREDNISolone (Medrol D ospak) 4 MG tablets Take by mouth as directed by package instructions 21 tablet 0 11/11/2022 11/27/2022 Discontinued (Stop taking at discharge) Start: 10-27-2022 methylPREDNISo lone (Medrol Dospak) 4 MG tablets Take by mouth as directed by package instructions 21 tablet 0 10/27/2022 Suspended Start: 07-15-2022 End: 10-13-2022 methylPREDNISolone (Medrol D ospak) 4 MG tablets Take by mouth as directed by package instructions 21 tablet 0 07/15/2022 10/13/2022 Discontinued (Therapy completed) Start: 05-13-2020 End: 05-13-2020 methylPREDNISolone sodium (S JENNIFER-MEDROL) injection 40 mg metoclopramide 10 mg oral tablet (3 sources) Dopamine-2 Receptor Antagonist Start: 11-07-2022 End: 11-10-2022 take 1 dose by mouth four times daily 10 mg, Oral, Every 6 hours scheduled (4 times per day), First dose on Thu11/07/22 at 1800, Recovery & On Unit Start: 05-14-2020 End: 05-15-2020 metoclopramide (REGLAN) inje ction 10 mg montelukast 10 mg oral tablet (10 sources) Leukotriene Receptor Antagonist Start: 06-05-2022 End: 10-30-2022 take 1 tablet by mouth once daily montelukast (Singulair) 10 MG tablet Take 1 tablet by mouth Nightly. 0 06/05/2022 10/30/2022 Discontinued (Med list cleanup) 1 ml morphine sulfate 4 mg/ml injection (9 sources) Opioid Agonist Start: 11-25-2022 End: 11-27-2022 take 2 mg intravenously every four hours as needed for pain morphine sulfate (PF) injection 2 mg Start: 11-25-2022 End: 11-25-2022 morphine sulfate (PF) inject ion 4 mg Start: 05-14-2020 End: 05-14-2020 take 2 mg by mouth every four hours as needed for pain 2 mg, Intravenous, EVERY 4 HOURS PRN, Pain Severe (7-10), Starting 05/14/20 at 0048 If oral and IV narcotics ordered, use oral first and only use IV if oral is ineffective or cannot take oral. Do Not give oral and IV within 1 hour of each other unless specifically ordered. Start: 05-13-2020 End: 05-13-2020 morphine injection 4 mg nystatin 412154 unt/ml oral suspension (4 sources) Polyene Antifungal Start: 11-25-2022 End: 11-27-2022 nystatin (Mycostatin) 916012 UNIT/ML suspension 500,000 Units Start: 2019 nystatin (MYCO STATIN) 923087 UNIT/ML suspension Half a teaspoon q.i.d. Swish in mouth for a minute or two, then swallow for one week 1 Bottle 1 2019 Active omeprazole 20 mg delayed release oral capsule (20 sources) Proton Pump Inhibitor Start: 05-31-2019 take 40 mg by mouth once daily Omeprazole Active 40 MG PO DAILY May 31, 2019 10:55pm Start: 03-21-2019 End: 05-31-2019 take 40 mg by mouth twice daily, then take 40 mg by mouth once daily Omeprazole Discontinued 40 MG PO TWICE A DAY 30 March 23, 2019 5:57pm May 31, 2019 10:55pm 40 mg twice daily for 14 days then 40 mg daily Start: 07-20-2015 End: 10-09-2017 Omeprazole (Prilosec) 40 MG capsule Discontinued 20 mg PO TWICE A DAY July 20, 2015 1:00am October 09, 2017 4:52pm Heart burn Start: 11-10-2011 Prilosec 40 mg oral delayed release capsule Dose : 40 mg = 1 cap(s), Oral, Daily, 0 Refill(s) Start Date: 11/10/11 Status: Ordered Start: 08-12-2011 End: 10-07-2027 take 1 capsule by mouth twice daily Omeprazole 20 MG capsule,delayed release(DR/EC) Discontinued 20 mg PO TWICE A DAY May 31, 2019 10:55pm May 11, 2024 9:37pm GERD Start: 08-12-2011 End: 07-27-2023 take 2 capsules by mouth twice daily, then take 2 capsules by mouth once daily Omeprazole 20 MG capsule,delayed release(DR/EC) Discontinued 40 mg PO TWICE A DAY March 23, 2019 5:57pm May 31, 2019 10:55pm 40 mg twice daily for 14 days then 40 mg daily 2 ml ondansetron 2 mg/ml injection (20 sources) Serotonin-3 Receptor Antagonist Start: 11-25-2022 End: 11-25-2022 ondansetron (Zofran) injection 4 mg Start: 05-13-2020 End: 05-13-2020 ondansetron (ZOFRAN) injecti on 4 mg Start: 02-22-2016 End: 05-09-2016 take 1 tablet by mouth every eight hours as needed for nausea Ondansetron 4 MG tablet Discontinued 4 mg PO EVERY 8 HOURS NEEDED as needed for Nausea 10 February 22, 2016 12:00am May 09, 2016 4:52pm Start: 02-22-2015 End: 05-09-2015 take 1 tablet by mouth every eight hours as needed for nausea Ondansetron Hcl 8 MG tablet Discontinued 8 mg PO EVERY 8 HOURS NEEDED as needed for Nausea 20 0 February 22, 2015 12:00am May 09, 2015 2:53pm ondansetron ODT (Zofran-ODT) disintegrating tablet 4 mg (4 sources) Start: 11-25-2022 End: 11-27-2022 take 1 tablet by mouth every eight hours as needed for nausea and vomiting ondansetron ODT (Zofran-ODT) disintegrating tablet 4 mg Start: 11-06-2022 End: 11-10-2022 take 1 tablet by mouth every eight hours as needed for nausea and vomiting ondansetron ODT (Zofran-ODT) disintegrating tablet 4 mg oxyCODONE (20 sources) Opioid Agonist Start: 11-25-2022 End: 11-27-2022 take 1 tablet by mouth every four hours as needed for pain oxyCODONE (Roxicodone) immediate release tablet 5 mg Start: 11-07-2022 End: 11-10-2022 take 1 tablet by mouth every four hours as needed for pain oxyCODONE (Roxicodone) immediate release tablet 5 mg Start: 11-06-2022 End: 11-07-2022 take 1 tablet by mouth every four hours as needed for pain 5 mg, Oral, Every 4 hours PRN, moderate pain (4-6), Starting on Lana 11/06/22 at 2020, Phase II/On Unit Start: 03-14-2017 oxyCODONE 20 m g oral tablet, ( extended release ) Dose : 20 mg = 1 tab(s), Oral, q12h, 0 Refill(s) Start Date: 03/14/17 Status: Ordered Start: 05-06-2016 End: 05-09-2016 Oxycodone 5 MG tablet Discon tinued 10 - 20 mg PO as needed for Pain May 06, 2016 12:00am May 09, 2016 4:47pm End: 05-13-2019 oxyCODONE ER (XTAMPZA ER) 18 MG C12A Take by mouth. 0 05/13/2019 Discontinued (Therapy completed) pantoprazole 40 mg delayed release oral tablet (20 sources) Proton Pump Inhibitor Start: 11-26-2022 End: 11-27-2022 take 40 mg by mouth once daily before breakfast 40 mg, Oral, Daily before breakfast, First dose on Thu11/26/22 at 0700 Do not crush, chew, or split. Start: 11-08-2022 End: 11-10-2022 take 20 mg by mouth once daily before breakfast 20 mg, Oral, Daily before breakfast, First dose on Thu11/08/22 at 0700, Recovery & On Unit Do not crush, chew, or split. Start: 05-14-2020 take 1 tablet by jono th twice daily before mealtime pantoprazole (PROTONIX) 40 MG tablet Take 1 tablet by mouth 2 times daily (before meals) 30 tablet 3 05/15/2020 Active Start: 10-09-2017 End: 11-08-2018 take 1 tablet by mouth twice daily Pantoprazole 40 MG tablet Discontinued 40 mg PO TWICE A DAY 60 0 October 09, 2017 1:00am November 08, 2018 8:10pm perflutren lipid microspheres (Definity) injection 1.65 mg (2 sources) Start: 11-25-2022 End: 11-27-2022 1.65 mg, IntraVENous, IMG once PRN, other, Suboptimal echo image, Starting on Thu11/25/22 at 2159, For 1 dose, CV Procedural Medications Administer up to 1.65 mg via slow IVP for suboptimal echocardiogram enhancement. May administer a calculated dose or diluted 8.5 mL of 0.9% sodium chloride for a total volume of 10 mL. May administer as divided doses to reach optimal image enhancement permethrin 50 mg/ml topical cream (2 sources) Pyrethroid Start: 11-25-2022 End: 11-25-2022 permethrin (Elimite) 5 % cream polyethylene glycol 3350 03260 mg powder for oral solution (20 sources) Osmotic Laxative Start: 11-25-2022 End: 11-27-2022 take 17 g by mouth every twenty-four hours as needed for constipation 17 g, Oral, Daily PRN, constipation, Starting on Thu11/25/22 at 2159 1st line for treatment of constipation - give scheduled if no bowel movement in past 24 hours. Start: 11-09-2022 End: 11-10-2022 polyethylene glycol (PEG) 33 50 (Miralax) packet 17 g Start: 05-14-2020 End: 06-14-2020 take 17 g by mouth once daily as needed for constipation, then take 17 g by mouth as needed for constipation polyethylene glycol (GLYCOLAX) 17 GM/SCOOP powder Take 17 g by mouth daily as needed (constipation) 510 g 1 05/15/2020 06/14/2020 Active Start: 05-05-2019 End: 05-31-2019 take 17 g by mouth once daily Polyethylene Glycol 3350 17 GM packet Discontinued 17 g PO DAILY 30 0 May 05, 2019 12:00am May 31, 2019 10:55pm potassium chloride 20 meq powder for oral solution (2 sources) Start: 11-09-2022 End: 11-09-2022 potassium chloride (Klor-Con ) packet 40 mEq Start: 11-09-2022 End: 11-09-2022 potassium chloride (Klor-Con ) packet 40 mEq predniSONE 20 mg oral tablet (20 sources) Start: 02-15-2023 End: 05-11-2024 take 2 tablets by mouth once daily Prednisone 20 mg tablet Discontinued 40 mg PO DAILY 8 4 0 February 15, 2023 12:00am May 11, 2024 9:37pm Start: 02-15-2023 take 40 mg by mouth once daily Prednisone Active 40 MG PO DAILY 8 4 February 15, 2023 12:00am Start: 11-17-2022 End: 05-11-2024 take 1 tablet by mouth once daily Prednisone 20 mg tablet Discontinued 20 mg PO DAILY 5 5 0 November 17, 2022 12:00am May 11, 2024 9:37pm Start: 09-23-2022 End: 10-13-2022 predniSONE (Deltasone) 50 MG tablet Take 1 tablet by mouth at 13 hours before contrast, 7 hours before contrast and 1 hour before contrast. 3 tablet 0 09/23/2022 10/13/2022 Discontinued (Therapy completed) Start: 12-09-2018 predniSONE (DE LTASONE) 10 MG tablet 5 qday for 3 days, then 3 qday for 3 days, then one qday till gone 27 tablet 0 12/09/2018 Active promethazine hydrochloride 25 mg oral tablet (4 sources) Phenothiazine Start: 12-01-2023 End: 05-11-2024 take 1 tablet by mouth every six hours as needed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 Creatinine Equation (2020) Hematocrit Auto (Bld) [Volum e fraction]Ordered By: Alfred Parkinson on 04-14-2025 Hematocrit (Bld) [Volume fraction] 42.2 % 37-47 [facility] Hemoglobin measurementOrdere d By: Alfred Parkinson 04-14-2025 Hemoglobin (Bld) [Mass/Vol] 13.9 g/dL 12.0-15.0 [facility] Immature granulocytes/100 WB C Auto (Bld)Ordered By: Alfred Parkinson 04-14-2025 Immature granulocytes/100 WBC (Bld) 0.400 % 0.0-0.9 [facility] Comment on above: IG% - Immature Granu locytes (promyelocytes, myelocytes and metamyelocytes) > 1% indicates that a LEFT SHIFT is Present. MCV (mean corpuscular volume ) determinationOrdered By: Alfred Parkinson 04-14-2025 MCV (RBC) [Entitic vol] 94.6 fL 81-99 [facility] Mean corpuscular hemoglobin (MCH) determinationOrdered By: Alfred Parkinson 04-14-2025 MCH (RBC) [Entitic mass] 31.2 pg 27.0-32.0 [facility] Mean corpuscular hemoglobin concentration (MCHC) determinationOrdered By: Alfred Parkinson 04-14-2025 MCHC (RBC) [Mass/Vol] 32.9 g/dL 32-36 [facility] Mean platelet volume determi nationOrdered By: Alfred Parkinson on 04-14-2025 Platelet mean volume (Bld) [Entitic vol] 9.5 fL 6.2-12.0 [facility] Monocyte percentageOrdered B y: Alfred Parkinson on 04-14-2025 Monocytes/100 WBC (Bld) 5.4 % 0-10 [facility] Neutrophil percentageOrdered By: Alfred Parkinson on 04-14-2025 Neutrophils/100 WBC (Bld) 67.2 % 47-70 [facility] Nucleated red blood cell per centageOrdered By: Alfred Parkinson on 04-14-2025 Nucleated RBC/100 WBC (Bld) [Ratio] 0 % 0-5 [facility] Platelet countOrdered By: Halley Parkinson on 04-14-2025 Platelets (Bld) [#/Vol] 307 10*3/uL 150-450 [facility] Potassium measurement (mass/ volume)Ordered By: Alfred Parkinson on 04-14-2025 Potassium (Unsp spec) [Mass/Vol] 3.3 mmol/L 3.3-5.1 [facility] RBC Auto (Bld) [#/Vol]Ordere d By: Alfred Parkinson on 04-14-2025 RBC (Bld) [#/Vol] 4.46 10*6/uL 4.2-5.4 [facility] Serum creatinine measurement (mass/volume)Ordered By: Alfred Parkinson on 04-14-2025 Creatinine [Mass/Vol] 0.66 mg/dL Low 0.70-1.20 [facility] Serum glucose measurement (m ass/volume)Ordered By: Alfred Parkinson on 04-14-2025 Glucose [Mass/Vol] 111 mg/dL High 70-99 [facility] Serum or plasma calcium tania urement (mass/volume)Ordered By: Alfred Parkinson on 04-14-2025 Calcium [Mass/Vol] 8.8 mg/dL 7.6-11.0 [facility] Serum or plasma urea nitroge n measurement (mass/volume)Ordered By: Alfred Parkinson on 04-14-2025 Urea nitrogen [Mass/Vol] 9 mg/dL 4-19 [facility] Sodium levelOrdered By: Alfred Parkinson on 04-14-2025 Sodium [Moles/Vol] 141 mmol/L 133-145 [facility] Troponin T.cardiac [Mass/vol ume] in Serum or Plasma by High sensitivity methodOrdered By: Alfred Parkinson on 04-14-2025 Troponin T.cardiac High sensitivity method [Mass/Vol] < 6 ng/L <14 [facility] White blood cell (WBC) count Ordered By: Alfred Parkinson on 04-14-2025 WBC (Bld) [#/Vol] 11.9 10*3/uL High 4.4-11.0 [facility] Emergency Department Summary on 03-14-2025 Emergency Department Summary [facility] Medical Records Department [address] [place] [address] Emergency Department Summary 03/14/25 MR#: [id number] Acct: [id number] Name: ORTIZ MASON Rep #: [id number] : 1970 55 From: Zain Carvajal MD PCP: Dr. Amandeep Loredo, DO Status:REG ER Location: ED HPI History [...] Narrative Narrative: 55-year-old female history of prior IA, brain aneurysm, and A-fib not on blood [...] No incontinence. Prior similar symptoms: No Recent Illness/Hospitalization : No [facility] Medical History NSTEMI (non-ST elevated myocardial infarction) Cardiac arrest COVID-19 Brain aneurysm Chronic pain Rheumatoid arthritis Kidney stones Kidney disease GERD (gastroesophageal reflux disease) Former smoker Sleep apnea Asthma Migraines Seizures Home Medications ???Medication ???Instructions ???Recorded ???Last Taken ???Type timncgvi-ghrw-nndw 8 mg-folic 400 1 tab PO DAILY supplement 9 07/26/21 History mcg-K 50 mcg-lutein 300 mcg tablet levetiracetam 750 mg tablet 1,500 mg PO TID seizures 12/04/19 07/26/21 History fluticasone propionate 50 1 spray intranasal DAILY 08/24/22 Unknown History mcg/actuation nasal spray,suspension (Flonase Allergy Relief) lidocaine 5 % topical ointment 1 applic topical TID PRN skin 10/23 03/15 Unknown Rx irritation #50 grams cyclobenzaprine 10 mg tablet 10 mg PO TID PRN Muscle Spasm #20 05/11/24 Unknown Rx TABLETS oxycodone-acetaminophen 5 mg-325 1 tab PO Q6H PRN PRN Pain 3 days 1 08/29/23 Unknown Rx mg tablet #10 TABLETS oxycodone-acetaminophen 5 mg-325 1 tab PO Q6H PRN pain 5 days #20 1 10/08/23 Unknown Rx mg tablet (Percocet) tabs gabapentin 400 mg capsule 800 mg PO DAILY 09/04/24 Unknown H istory levetiracetam 1,000 mg tablet 1,000 mg PO Q12H 09/04/24 Unknown History (Keppra) omeprazole 20 mg capsule,delayed 20 mg PO BID 09/04/24 Unknown Hist ory release tizanidine 2 mg capsule 2 mg PO TID PRN muscle spasticity 10/21/24 Unknown Rx #14 caps oxycodone-acetaminophen 5 mg-325 1 tab PO Q6H PRN PRN Pain 3 days 0 01/05/25 Unknown Rx mg tablet #12 TABLETS metaxalone 800 mg tablet 800 mg PO TID 7 days #21 tabs 07/2 2/25 Unknown Rx oxycodone-acetaminophen 5 mg-325 1 tab PO Q6H PRN pain 4 days #12 0 03/14/25 Unknown Rx mg tablet (Percocet) tabs [...] dyspnea Gastrointestinal Gastrointestinal: Denies abdominal pain Genitourinary (more content not included)... Normal [facility] Thoracic Spine 2 Viewson Thoracic Spine 2 Views [facility] Imaging Services [address] [place] [address] Thoracic Spine 2 Views MR#: [id number] Acct: [id number] Name: ORTIZ MASON Rep #: [id number] : 1970 F 55 From: Ha Burch MD PCP: Dr. Amandeep Loredo, DO Status: DEP ER Study: Thoracic Spine 2 Views Date of Exam: 03/14/25 Exam# [id number] Ordering Dr: Zain Carvajal MD EXAM: XR Thoracic Spine, 2 Views CLINICAL INDICATION: SUDDEN PAIN CATCHING CAMMY TECHNIQUE: Frontal and lateral views of the thoracic spine. COMPARISON: No relevant prior studies available. 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 Normal alignment. No acute fracture. DISC SPACES: See above. SOFT TISSUES: Unremarkable. RAD/Thoracic Spine 2 Views IMPRESSION: 1. No acute fracture. 2. Degenerative changes thoracic spine as described. Reading Location: [facility] CC: Dr. Amandeep Loredo DO; Dr. Zain Carvajal MD [employer] Dyer: Signed Normal [facility] Emergency Department Summary on 01-05-2025 Emergency Department Summary [facility] Medical Records Department [address] [place] [address] Emergency Department Summary 01/05/25 MR#: [id number] Acct: [id number] Name: ORTIZ MASON Rep #: [id number] : 1970 54 From: Franki Flynn DO PCP: Dr. Amandeep Loredo DO Status:DEP ER Location: ED HPI HPI - Fall History of Present Illness Chief Complaint: Fall Informant: patient Narrative Narrative: 54-year-old female presenting to the emergency room with chief complaint of fall. Patient states she was mowing her lawn when she was walking backwards with the mower stepped in a gopher hole and fell down. She states she tried to catch herself with her left wrist and notes pain over the distal ulna/wrist. She also states that she landed on her buttock and has pain in the left sacral region left lateral hip and left inguinal region. She states when she walks she can feel her hip popping. She denies any head injury. X-rays of the hip pelvis and wrist were obtained through nursing triage. [facility] Medical History NSTEMI (non-ST elevated myocardial infarction) Cardiac arrest COVID-19 Brain aneurysm Chronic pain Rheumatoid arthritis Kidney stones Kidney disease GERD (gastroesophageal reflux disease) Former smoker Sleep apnea Asthma Migraines Seizures Home Medications ???Medication ???Instructions ???Recorded ???Last Taken ???Type qtzzntkx-qyhn-dhsh 8 mg-folic 400 1 tab PO DAILY supplement 9 07/26/21 History mcg-K 50 mcg-lutein 300 mcg tablet levetiracetam 750 mg tablet 1,500 mg PO TID seizures 12/04/19 07/26/21 History fluticasone propionate 50 1 spray intranasal DAILY 08/24/22 Unknown History mcg/actuation nasal spray,suspension (Flonase Allergy Relief) lidocaine 5 % topical ointment 1 applic topical TID PRN skin 10/23 03/15 Unknown Rx irritation #50 grams cyclobenzaprine 10 mg tablet 10 mg PO TID PRN Muscle Spasm #20 05/11/24 Unknown Rx TABLETS oxycodone-acetaminophen 5 mg-325 1 tab PO Q6H PRN PRN Pain 3 days 1 08/29/23 Unknown Rx mg tablet #10 TABLETS oxycodone-acetaminophen 5 mg-325 1 tab PO Q6H PRN pain 5 days #20 1 10/08/23 Unknown Rx mg tablet (Percocet) tabs gabapentin 400 mg capsule 800 mg PO DAILY 09/04/24 Unknown H istory levetiracetam 1,000 mg tablet 1,000 mg PO Q12H 09/04/24 Unknown History (Keppra) omeprazole 20 mg capsule,delayed 20 mg PO BID 09/04/24 Unknown Hist ory release tizanidine 2 mg capsule 2 mg PO TID PRN muscle spasticity 10/21/24 Unknown Rx #14 caps oxycodone-acetaminophen 5 mg-325 1 tab PO Q6H PRN PRN Pain 3 days 0 01/05/25 Unknown Rx mg tablet #12 TABLETS Allergy/AdvReac Type Severity Reaction Status Date / Time Penicillins Allergy Anaphylaxis Verified 01/05/25 17:01 propoxyphene napsylate (From Allergy Rash Verified 01/05/25 17:01 Darvocet-N 100) adhesive tape (plastic tape) AdvReac Other Verified 01/05/25 17:01 hydrocodone bitartrate (From AdvReac Itching Verified 01/05/25 17:01 Vicodin) Iodinated Contrast Media AdvReac Vomiting Verified 01/05/25 17:01 (contrast dye - iodinated) venom-honey bee (bee venom AdvReac Chest Verified 01/05/25 17:01 (honey bee)) tightness Surgical History Previous back surgery History of appendectomy History of cholecystectomy Social History household members: none Smoking Status: Current every day smoker tobacco type: cigarettes substance use type: does not use ROS ROS ED Constitutional Constitutional ED: Denies chills, fever(s) or weight loss Eyes Eyes: Denies change in vision or diplopia ENT ENT ED: Denies ear pain, rhinorrhea or sore throat Cardiovascular Cardiovascular: Denies chest pain, orthopnea, palpitations or racing heartbeat Respiratory/Chest Respiratory/Chest: Denies cough, dyspnea or orthopnea Gastrointestinal Gastrointestinal: Denies abdominal pain, diarrhea, nausea or vomiting Genitourinary Genitourinary ED: Denies dysuria, hematuria or urinary frequency Musculoskeletal Musculoskeletal: Reports other Details: See history of present ; Denies arthralgias or myalgias Integumentary Denies abscess or rash Neurologic Neurologic: Denies headache(s) or weakness Psychiatric Psychiatric: Denies anxiety, depression, suicidal ideation or suicidal thoughts Endocrine Endocrinology: Denies polydipsia, polyphagia or polyuria Allergic/Immunologic Allergic/Immunologic ED: Denies mouth swelling, tongue swelling or urticaria EXAM Physical Exam Narrative Exam Narrative: Patient is crying. Const Vital Signs: 01/05/25 16:57 01/05/25 18:20 01/05/25 18:20 Temperature 96.9 F L Te (more content not included)... Normal [facility] HIP, UNI W/ Pelvis 2-3 Views on 01-05-2025 HIP, UNI W/ Pelvis 2-3 Views [facility] Imaging Services [address] [place] [address] HIP, UNI W/ Pelvis 2-3 Views MR#: [id number] Acct: [id number] Name: ORTIZ MASON Rep #: [id number] : 1970 F 54 From: Ha Guerrero MD PCP: Dr. Amandeep Loredo DO Status: REG ER Study: HIP, UNI W/ Pelvis 2-3 Views Date of Exam: Exam# [id number] Ordering Dr: Franki Flynn DO PROCEDURE: HIP, UNI W/ PELVIS [...] 2. Additional description as above. Reading Location: [id number] CC: Dr. Franki Flynn DO; Dr. Amandeep Loredo DO [employer] Dyer: Signed Normal [facility] Wrist min 3 Viewson 01-06-20 Wrist min 3 Views [facility] [address] [place], [place] [id number] Wrist min 3 Views MR#: [id number] Acct: [id number] Name: ORTIZ MASON Rep #: [id number] : 1970 F 54 From: Ha Guerrero MD PCP: Dr. Amandeep Loredo DO Status: REG ER Study: Wrist min 3 Views Date of Exam: 01/05/25 Exam# [id number] Ordering Dr: Franki Flynn DO PROCEDURE: WRIST MIN 3 VIEWS, [...] without visible acute displaced fracture. Reading Location: [id number] CC: Dr. Franki Flynn DO; Dr. Amandeep Loredo DO [employer] Dyer: Signed Normal [facility] 12 Lead EKGon 10-20-2024 12 Lead EKG [facility] Services [address] [place] [address] 12 Lead EKG 10/20/242050 MR#: [id number] Acct: [id number] Name: ORTIZ MASON Rep #: [id number] : 1970 54 From: Dawit Christensen MD Attending Dr: Status: DEP ER Ordering Dr: Luis Angel Morales DO Date: 10/20/24 Location: ED Sex: F C Admitted: Test Reason : BACK Blood Pressure : */* mmHG Vent. Rate : 78 BPM Atrial Rate : 78 BPM P-R Int : 154 ms QRS Dur : 92 ms QT Int : 394 ms P-R-T Axes : 62 60 61 degrees QTcB Int : 449 ms Normal sinus rhythm Normal ECG When compared with ECG of 07-Oct-2023 19:45, No significant change was found Confirmed by Dawit Christensen ([id number]), metropolitan editor MAYRA SMALL ([id number]) on 10/21/2024 9:45:13 AM Referred By: Luis Angel Morales Confirmed By: Dawit Christensen 10/21/24 0945 Date Dawit Christensen MD CC: Dr. Amandeep Loredo DO; Dr. Luis Angel Morales DO Signed [facility] Abdomen/Pelvis without Conto n 10-20-2024 Abdomen/Pelvis without Cont [facility] [address] [place], [place] [id number] Abdomen/Pelvis without Cont MR#: [id number] Acct: [id number] Name: ORTIZ MASON Rep #: [id number] : 1970 F 54 From: Bill Huff MD PCP: Dr. Amandeep Loredo DO Status: REG ER Study: Abdomen/Pelvis without Cont Date of Exam: 09/25 03/17 Exam# [id number] Ordering Dr: Luis Angel Morales DO PROCEDURE: ABDOMEN/PELVIS WITHOUT CONT REASON FOR EXAM: Back pain, history of stones TECHNIQUE: Abdomen and pelvis CT without intravenous contrast. Coronal and sagittal reformatted images COMPARISON: 12/01/2023 FINDINGS: The lung bases are clear. Status post cholecystectomy. Gastric pacemaker, L3 through S1 spinal hardware and intervertebral disc spacer L3-4 again noted with associated spray artifact. Status post cholecystectomy. Enlarged fatty liver again noted. No renal stones, hydronephrosis or perinephric stranding. The adrenal glands, pancreas and spleen appear within limits. No ureteral or bladder stone identified. The bladder appears within limits. No bowel dilation or free air. The appendix is not identified, no secondary signs. Diverticulosis without diverticulitis. No free fluid. No free air. Apparent hysterectomy. CT/Abdomen/Pelvis without Cont IMPRESSION: No renal stones, hydronephrosis or perinephric stranding. No evidence of ureteral or bladder stone. Status post cholecystectomy. Gastric pacemaker and spinal hardware again noted. Enlarged, fatty liver again noted. The appendix is not identified, no secondary signs. Diverticulosis without diverticulitis. One or more dose reduction techniques were used (e.g., Automated exposure control, adjustment of the mA and/or kV according to patient size, use of iterative reconstruction technique). Reading Location: [facility] CC: Dr. Amandeep Loredo DO; Dr. Luis Angel Morales DO [employer] Dyer: Signed Normal [facility] Absolute lymphocyte countOrd ered By: Luis Angel Morales on 10-20-2024 Lymphocytes Auto (Unsp spec) [#/Vol] 3.21 10*3/uL 0.83-4.51 [facility] Absolute neutrophil countOrd ered By: Luis Angel Morales on 10-20-2024 Neutrophils (Bld) [#/Vol] 6.7 10*3/uL 2.0-7.7 [facility] Automated lymphocyte count a s percentage of total leukocytesOrdered By: Luis Angel Morales on 10-20-2024 Lymphocytes/100 WBC Auto (Unsp spec) 29.6 % 19-41 [facility] BUN/creatinine ratioOrdered By: Luis Angel Morales on 10-20-2024 Urea nitrogen/Creatinine [Mass ratio] 20.7 mg/mg High 10-20 [facility] Basophil percentageOrdered B y: Luis Angel Morales on 10-20-2024 Basophils/100 WBC (Bld) 0.6 % 0-1 [facility] Bilirubin Test strip Ql (U)O rdered By: Luis Angel Morales on 10-20-2024 Bilirubin Ql (U) Negative Negative [facility] Bilirubin, totalOrdered By: Luis Angel Morales on 10-20-2024 Bilirubin [Mass/Vol] 0.17 mg/dL 0.00-1.30 [facility] CBC W/Diff, Automatedon 09-25 Absolute Lymph 3.21 X10 3/uL Normal 0.83-4.51 [facility] Comment on above: Performed By: #### L 500.4050, L501.2450, L100.0100 ####[facility] [address] [place], [address] Absolute Neut 6.7 X10 3/uL Normal 2.0-7.7 [facility] Comment on above: Performed By: #### L 500.4050, L501.2450, L100.0100 ####[facility] [address] [place], [address] Basophils/100 WBC (Bld) 0.6 % Normal 0-1 [facility] Comment on above: Performed By: #### L 500.4050, L501.2450, L100.0100 ####[facility] [address] [place], [address] Eosinophils/100 WBC (Bld) 1.4 % Normal 0-5 [facility] Comment on above: Performed By: #### L 500.4050, L501.2450, L100.0100 ####[facility] [address] [place], [address] Erythrocyte distribution width (RBC) [Ratio] 12.8 % Normal 11.6-14.6 [facility] Comment on above: Performed By: #### L 500.4050, L501.2450, L100.0100 ####[facility] [address] [place], [address] Hematocrit (Bld) [Volume fraction] 45.4 % Normal 37-47 [facility] Comment on above: Performed By: #### L 500.4050, L501.2450, L100.0100 ####[facility] [address] [place], [address] Hemoglobin (Bld) [Mass/Vol] 15.1 g/dL High 12.0-15.0 [facility] Comment on above: Performed By: #### L 500.4050, L501.2450, L100.0100 ####[facility] [address] [place], [address] IG% 0.400 Normal 0.0-0.9 [facility] Comment on above: Result Comment: IG% - Immature Granulocytes (promyelocytes, myelocytes and metamyelocytes) > 1% indicates that a LEFT SHIFT is Present. Performed By: #### L 500.4050, L501.2450, L100.0100 ####[facility] [address] [place], [address] Lymphocytes/100 WBC (Bld) 29.6 % Normal 19-41 [facility] Comment on above: Performed By: #### L 500.4050, L501.2450, L100.0100 ####[facility] [address] [place], [address] MCH (RBC) [Entitic mass] 30.9 pg Normal 27.0-32.0 [facility] Comment on above: Performed By: #### L 500.4050, L501.2450, L100.0100 ####[facility] [address] [place], [address] MCHC (RBC) [Mass/Vol] 33.3 g/dL Normal 32-36 [facility] Comment on above: Performed By: #### L 500.4050, L501.2450, L100.0100 ####[facility] [address] [place], [address] MCV (RBC) [Entitic vol] 92.8 fL Normal 81-99 [facility] Comment on above: Performed By: #### L 500.4050, L501.2450, L100.0100 ####[facility] [address] [place], [address] Monocytes/100 WBC (Bld) 6.1 % Normal 0-10 [facility] Comment on above: Performed By: #### L 500.4050, L501.2450, L100.0100 ####[facility] [address] [place], [address] Neutrophils/100 WBC (Bld) 61.9 % Normal 47-70 [facility] Comment on above: Performed By: #### L 500.4050, L501.2450, L100.0100 ####[facility] [address] [place], [address] Nucleated RBC (Bld) [#/Vol] 0 10*3/uL Normal 0-5 [facility] Comment on above: Performed By: #### L 500.4050, L501.2450, L100.0100 ####[facility] [address] [place], [address] Platelet mean volume (Bld) [Entitic vol] 9.8 fL Normal 6.2-12.0 [facility] Comment on above: Performed By: #### L 500.4050, L501.2450, L100.0100 ####[facility] [address] [place], [address] Platelets (Bld) [#/Vol] 312 10*3/uL Normal 150-450 [facility] Comment on above: Performed By: #### L 500.4050, L501.2450, L100.0100 ####[facility] [address] [place], [address] RBC (Bld) [#/Vol] 4.89 10*6/uL Normal 4.2-5.4 [facility] Comment on above: Performed By: #### L 500.4050, L501.2450, L100.0100 ####[facility] [address] [place], [address] RDW SD 43.4 fl Normal 35.1-43.9 [facility] Comment on above: Performed By: #### L 500.4050, L501.2450, L100.0100 ####[facility] [address] [place], [address] WBC (Bld) [#/Vol] 10.8 10*3/uL Normal 4.4-11.0 [facility] Comment on above: Performed By: #### L 500.4050, L501.2450, L100.0100 ####[facility] [address] [place], [address] Carbon dioxide measurementOr dered By: Luis Angel Morales on 10-20-2024 CO2 [Moles/Vol] 21.1 mmol/L Low 22.0-29.0 [facility] Chloride measurementOrdered By: Luis Angel Morales on 10-20-2024 Chloride [Moles/Vol] 104 mmol/L 96-108 [facility] Comprehensive Metabolic Prof ilon 10-20-2024 Albumin [Mass/Vol] 4.0 g/dL Normal 3.5-5.0 [facility] Comment on above: Performed By: #### L 500.4050, L501.2450, L100.0100 ####[facility] [address] [place], [address] Albumin/Globulin [Mass ratio] 1.3 {ratio} Normal 0.9-2.4 [facility] Comment on above: Performed By: #### L 500.4050, L501.2450, L100.0100 ####[facility] [address] [place], [address] ALK PHOS 136 U/L High 35-104 [facility] Comment on above: Performed By: #### L 500.4050, L501.2450, L100.0100 ####[facility] [address] [place], [address] ALT [Catalytic activity/Vol] 9 U/L Normal <=34 [facility] Comment on above: Performed By: #### L 500.4050, L501.2450, L100.0100 ####[facility] [address] [place], [address] Anion gap [Moles/Vol] 11 mmol/L Normal 5-15 [facility] Comment on above: Performed By: #### L 500.4050, L501.2450, L100.0100 ####[facility] [address] [place], [address] AST [Catalytic activity/Vol] 20 U/L Normal <=31 [facility] Comment on above: Result Comment: Hemo lysis present, Results??could be affected. ?? Performed By: #### L 500.4050, L501.2450, L100.0100 ####[facility] [address] [place], [address] Bilirubin [Mass/Vol] 0.17 mg/dL Normal 0.00-1.30 [facility] Comment on above: Performed By: #### L 500.4050, L501.2450, L100.0100 ####[facility] [address] [place], [address] BUN/CRE 20.7 RATIO High 10-20 [facility] Comment on above: Performed By: #### L 500.4050, L501.2450, L100.0100 ####[facility] [address] [place], [address] Calcium [Mass/Vol] 9.0 mg/dL Normal 7.6-11.0 [facility] Comment on above: Performed By: #### L 500.4050, L501.2450, L100.0100 ####[facility] [address] [place], [address] Chloride [Moles/Vol] 104 mmol/L Normal 96-108 [facility] Comment on above: Performed By: #### L 500.4050, L501.2450, L100.0100 ####[facility] [address] [place], [address] CO2 [Moles/Vol] 21.1 mmol/L Low 22.0-29.0 [facility] Comment on above: Performed By: #### L 500.4050, L501.2450, L100.0100 ####[facility] [address] [place], [address] Creatinine [Mass/Vol] 0.59 mg/dL Low 0.70-1.20 [facility] Comment on above: Performed By: #### L 500.4050, L501.2450, L100.0100 ####[facility] [address] [place], [address] ECRCL 126.27 ml/min Normal [facility] Comment on above: Performed By: #### L 500.4050, L501.2450, L100.0100 ####[facility] [address] [place], [address] GFR/1.73 sq M.predicted among non-blacks MDRD (S/P/Bld) [Vol rate/Area] 106 mL/min/{1.73_m2} Normal >60 [facility] Comment on above: Result Comment: mL/m in/1.73m2 CKD-EPI Creatinine Equation (2020) Performed By: #### L 500.4050, L501.2450, L100.0100 ####[facility] [address] [place], [address] Globulin (S) [Mass/Vol] 3.0 g/dL Normal 2.2-4.2 [facility] Comment on above: Performed By: #### L 500.4050, L501.2450, L100.0100 ####[facility] [address] [place], [address] Glucose [Mass/Vol] 93 mg/dL Normal 70-99 [facility] Comment on above: Performed By: #### L 500.4050, L501.2450, L100.0100 ####[facility] [address] [place], [address] Potassium [Moles/Vol] 3.9 mmol/L Normal 3.3-5.1 [facility] Comment on above: Result Comment: Hemo lysis present, Results??could be affected. ?? Performed By: #### L 500.4050, L501.2450, L100.0100 ####[facility] [address] [place], [address] Sodium [Moles/Vol] 136 mmol/L Normal 133-145 [facility] Comment on above: Performed By: #### L 500.4050, L501.2450, L100.0100 ####[facility] [address] [place], [address] T PROT 7.0 g/dL Normal 5.9-8.4 [facility] Comment on above: Performed By: #### L 500.4050, L501.2450, L100.0100 ####[facility] [address] [place], [address] Urea nitrogen [Mass/Vol] 12 mg/dL Normal 4-19 [facility] Comment on above: Performed By: #### L 500.4050, L501.2450, L100.0100 ####[facility] [address] [place], [address] Emergency Department Summary on 10-20-2024 Emergency Department Summary [facility] Medical Records Department [address] [place] [address] Emergency Department Summary 10/20/24 MR#: [id number] Acct: [id number] Name: ORTIZ MASON Rep #: [id number] : 1970 54 From: Luis Angel Morales DO PCP: Dr. Amandeep Loredo DO Status:REG ER Location: ED ADDENDUM by Dr. Luis Angel Morales DO on 10/21/24 at 0033 Patient is EKG reviewed by myself which showed sinus rhythm with a rate of 70 bpm. 10/21/24 0033 Cosigner Signature (if applicable): cc: Dr. Amandeep Loredo DO * Signed HPI History of Present Illness Chief Complaint: Back Narrative Narrative: Patient is a 54-year-old female with past medical history of urolithiasis, asthma, LAURENCE, seizures, migraines who presented to the emergency department the chief complaint of back pain. Patient states that she has had previous back surgeries and notes that for the past few days she has had back pain that has been progressively worsening. Patient denies any traumas or injuries denies picking up anything heavy to exacerbate her symptoms. States that she is urinating normally for self and having normal bowel movements. States that this does feel like kidney stone she states that in the past she had to have her kidney stones broken up as they were large. Patient states that she tried to take one of her leftover narcotic pills but this did not help her pain. She states that since she was not getting relief she came here for the valuation management. Patient denies any history of IV drug use denies any alcohol use states that she does smoke cigarettes. [facility] Medical History NSTEMI (non-ST elevated myocardial infarction) Cardiac arrest COVID-19 Brain aneurysm Chronic pain Rheumatoid arthritis Kidney stones Kidney disease GERD (gastroesophageal reflux disease) Former smoker Sleep apnea Asthma Migraines Seizures Home Medications ???Medication ???Instructions ???Recorded ???Last Taken ???Type snwqxsuf-rhpg-hdxk 8 mg-folic 400 1 tab PO DAILY supplement 9 07/26/21 History mcg-K 50 mcg-lutein 300 mcg tablet levetiracetam 750 mg tablet 1,500 mg PO TID seizures 12/04/19 07/26/21 History fluticasone propionate 50 1 spray intranasal DAILY 08/24/22 Unknown History mcg/actuation nasal spray,suspension (Flonase Allergy Relief) lidocaine 5 % topical ointment 1 applic topical TID PRN skin 10/23 03/15 Unknown Rx irritation #50 grams cyclobenzaprine 10 mg tablet 10 mg PO TID PRN Muscle Spasm #20 05/11/24 Unknown Rx TABLETS oxycodone-acetaminophen 5 mg-325 1 tab PO Q6H PRN PRN Pain 3 days 1 08/29/23 Unknown Rx mg tablet #10 TABLETS oxycodone-acetaminophen 5 mg-325 1 tab PO Q6H PRN pain 5 days #20 1 10/08/23 Unknown Rx mg tablet (Percocet) tabs gabapentin 400 mg capsule 800 mg PO DAILY 09/04/24 Unknown H istory levetiracetam 1,000 mg tablet 1,000 mg PO Q12H 09/04/24 Unknown History (Keppra) omeprazole 20 mg capsule,delayed 20 mg PO BID 09/04/24 Unknown Hist ory release tizanidine 2 mg capsule 2 mg PO TID PRN muscle spasticity 10/21/24 Unknown Rx #14 caps Allergy/AdvReac Type Severity Reaction Status Date / Time Penicillins Allergy Anaphylaxis Verified 10/20/24 19:50 propoxyphene napsylate (From Allergy Rash Verified 10/20/24 19:50 Darvocet-N 100) adhesive tape (plastic tape) AdvReac Other Verified 10/20/24 19:50 hydrocodone bitartrate (From AdvReac Itching Verified 10/20/24 19:50 Vicodin) Iodinated Contrast Media AdvReac Vomiting Verified 10/20/24 19:50 (contrast dye - iodinated) venom-honey bee (bee venom AdvReac Chest Verified 10/20/24 19:50 (honey bee)) tightness Family History no significant family his Surgical History Previous back surgery History of appendectomy History of cholecystectomy Social History household members: none Smoking Status: Current every day smoker tobacco type: cigarettes substance use type: does not use ROS ROS ED ROS Narrative Constitutional: Denies fevers, chills, headaches, lightness, dizziness Eyes: Denies change in vision double vision blurry vision Cardiovascular: Denies chest pain Respiratory: Denies shortness of breath Abdomen: Denies abdominal pain nausea vomit diarrhea : Denies any urinary symptoms Neurological: Denies numbness, weakness, tingling Musculoskeletal: Complains of back pain as noted above Skin: Denies rashes or lesions EXAM Physical Exam Narrative Exam Narrative: General: Patient was lying in bed did not appear to be uncomfortable was tearful Head: Atraumatic, normocephalic Eyes: PERRL bilaterally, EOMI bilateral, no conjunctival inj (more content not included)... Normal [facility] Eosinophil percentageOrdered By: Luis Angel Morales on 10-20-2024 Eosinophils/100 WBC (Bld) 1.4 % 0-5 [facility] Erythrocyte distribution wid th ratioOrdered By: Luis Angel Morales on 10-20-2024 Erythrocyte distribution width (RBC) [Ratio] 12.8 % 11.6-14.6 [facility] Erythrocyte distribution wid th standard deviationOrdered By: Luis Angel Morales on 10-20-2024 Erythrocyte distribution width (RBC) [Ratio] 43.4 fl 35.1-43.9 [facility] Glomerular filtration rate ( GFR) estimation/1.73 sq m using serum, plasma, or whole bOrdered By: Luis Angel Morales on 10-20-2024 GFR/1.73 sq M.predicted among non-blacks MDRD (S/P/Bld) [Vol rate/Area] 106 mL/min/{1.73_m2} >60 [facility] Comment on above: mL/min/1.73m2 CKD-EP I Creatinine Equation (2020) Hematocrit Auto (Bld) [Volum e fraction]Ordered By: Luis Angel Morales on 10-20-2024 Hematocrit (Bld) [Volume fraction] 45.4 % 37-47 [facility] Hemoglobin measurementOrdere d By: Luis Angel Morales on 10-20-2024 Hemoglobin (Bld) [Mass/Vol] 15.1 g/dL High 12.0-15.0 [facility] Immature granulocytes/100 WB C Auto (Bld)Ordered By: Luis Angel Morales on 10-20-2024 Immature granulocytes/100 WBC (Bld) 0.400 % 0.0-0.9 [facility] Comment on above: IG% - Immature Granu locytes (promyelocytes, myelocytes and metamyelocytes) > 1% indicates that a LEFT SHIFT is Present. Ketones Test strip Ql (U)Ord ered By: Luis Angel Morales on 10-20-2024 Ketones Ql (U) Negative Negative [facility] Laboratory - Chemistry and C hemistry - challengeOrdered By: Luis Angel Morales on 10-20-2024 AST [Catalytic activity/Vol] 20 U/L <32 [facility] Comment on above: Hemolysis present, R esults could be affected. Lipaseon 10-20-2024 Lipase [Catalytic activity/Vol] 28 U/L Normal 13-75 [facility] Comment on above: Result Comment: Gibson ferreira note: LIPASE revised reference range effective 22. New Lipase methodology. Expected to produce lower values than the previous assay method. NEW Reference Range: 13 - 75 U/L Performed By: #### L 500.4050, L501.2450, L100.0100 ####[facility] [address] [place], [address] Lipase measurementOrdered By : Luis Angel Morales on 10-20-2024 Lipase [Catalytic activity/Vol] 28 U/L 13-75 [facility] [facility] Comment on above: Please note:LIPASE r evised reference range effective 22. New Lipase methodology. Expected to produce lower values than the previous assay method. NEW Reference Range: 13 - 75 U/L MCV (mean corpuscular volume ) determinationOrdered By: Luis Angel Morales on 10-20-2024 MCV (RBC) [Entitic vol] 92.8 fL 81-99 [facility] Mean corpuscular hemoglobin (MCH) determinationOrdered By: Luis Angel Morales on 10-20-2024 MCH (RBC) [Entitic mass] 30.9 pg 27.0-32.0 [facility] Mean corpuscular hemoglobin concentration (MCHC) determinationOrdered By: Luis Angel Morales on 10-20-2024 MCHC (RBC) [Mass/Vol] 33.3 g/dL 32-36 [facility] Mean platelet volume determi nationOrdered By: Luis Angel Morales on 10-20-2024 Platelet mean volume (Bld) [Entitic vol] 9.8 fL 6.2-12.0 [facility] Microscopic analysis of urin e for red blood cells (RBC)Ordered By: Luis Angel Morales on 10-20-2024 Microscopic analysis of urine for red blood cells (RBC) 0-5 SEEN /hpf 0-5 [facility] Monocyte percentageOrdered B y: Luis Angel Morales on 10-20-2024 Monocytes/100 WBC (Bld) 6.1 % 0-10 [facility] Mucus LM Ql (Urine sed)Order ed By: Luis Angel Morales on 10-20-2024 Mucus Ql (Urine sed) 0 SEEN /hpf [facility] Neutrophil percentageOrdered By: Luis Angel Morales on 10-20-2024 Neutrophils/100 WBC (Bld) 61.9 % 47-70 [facility] Nitrite Test strip Ql (U)Ord ered By: Luis Angel Morales on 10-20-2024 Nitrite Ql (U) Negative Negative [facility] Nucleated red blood cell per centageOrdered By: Luis Angel Morales on 10-20-2024 Nucleated RBC/100 WBC (Bld) [Ratio] 0 % 0-5 [facility] Platelet countOrdered By: Martínez Morales on 10-20-2024 Platelets (Bld) [#/Vol] 312 10*3/uL 150-450 [facility] Protein Test strip Ql (U)Ord ered By: Luis Angel Morales on 10-20-2024 Protein Ql (U) 15 mg/dl High Negative [facility] RBC Auto (Bld) [#/Vol]Ordere d By: Luis Angel Morales on 10-20-2024 RBC (Bld) [#/Vol] 4.89 10*6/uL 4.2-5.4 [facility] Serum creatinine measurement (mass/volume)Ordered By: Luis Angel Morales on 10-20-2024 Creatinine [Mass/Vol] 0.59 mg/dL Low 0.70-1.20 [facility] Serum globulin measurementOr dered By: Luis Angel Morales on 10-20-2024 Globulin (S) [Mass/Vol] 3.0 g/dL 2.2-4.2 [facility] Serum glucose measurement (m ass/volume)Ordered By: Luis Angel Morales on 10-20-2024 Glucose [Mass/Vol] 93 mg/dL 70-99 [facility] Serum or plasma alanine villegas otransferase (ALT) measurementOrdered By: Luis Angel Morales on 10-20-2024 ALT [Catalytic activity/Vol] 9 U/L <35 [facility] Serum or plasma albumin tania urement (mass/volume)Ordered By: Luis Angel Morales on 10-20-2024 Albumin [Mass/Vol] 4.0 g/dL 3.5-5.0 [facility] Serum or plasma albumin/glob ulin mass ratioOrdered By: Luis Angel Morales on 10-20-2024 Albumin/Globulin [Mass ratio] 1.3 {ratio} 0.9-2.4 [facility] Serum or plasma alkaline kiki sphatase measurementOrdered By: Luis Angel Morales on 10-20-2024 ALP [Catalytic activity/Vol] 136 U/L High 35-104 [facility] Serum or plasma anion gap de termination (moles/volume)Ordered By: Luis Angel Morales on 10-20-2024 Anion gap [Moles/Vol] 11 mmol/L 5-15 [facility] Serum or plasma calcium atnia urement (mass/volume)Ordered By: Luis Angel Morales on 10-20-2024 Calcium [Mass/Vol] 9.0 mg/dL 7.6-11.0 [facility] Serum or plasma potassium me asurementOrdered By: Luis Angel Morales on 10-20-2024 Potassium [Moles/Vol] 3.9 mmol/L 3.3-5.1 [facility] Comment on above: Hemolysis present, R esults could be affected. Serum or plasma sodium measu rement (moles/volume)Ordered By: Luis Angel Morales on 10-20-2024 Sodium [Moles/Vol] 136 mmol/L 133-145 [facility] Serum or plasma urea nitroge n measurement (mass/volume)Ordered By: Luis Angel Morales on 10-20-2024 Urea nitrogen [Mass/Vol] 12 mg/dL 4-19 [facility] Squamous epithelial cells de tection in urine sediment by light microscopyOrdered By: Luis Angel Morales on 10-20-2024 Epithelial cells.squamous LM Ql (Urine sed) 0-5 SEEN /hpf 5-10 [facility] Total proteinOrdered By: Janes Morales on 10-20-2024 Protein [Mass/Vol] 7.0 g/dL 5.9-8.4 [facility] Urinalysis, Completeon 10-20 RBC 0-5 SEEN Normal 0-5 [facility] Comment on above: Order Comment: CLEAN CATCH Performed By: #### L 400.0001 ####[facility] [address] [place], [place], [address] EPI,SQUAMOUS 0-5 SEEN Normal 5-10 [facility] Comment on above: Order Comment: CLEAN CATCH Performed By: #### L 400.0001 ####[facility] [address] [place], [address] WBC 5-10 SEEN Normal 0-5 [facility] Comment on above: Order Comment: CLEAN CATCH Performed By: #### L 400.0001 ####[facility] [address] [place], [address] BACTERIA 0 SEEN Normal None Seen [facility] Comment on above: Order Comment: CLEAN CATCH Performed By: #### L 400.0001 ####[facility] [address] [place], [place], [address] Mucus Ql (Urine sed) 0 SEEN Normal [facility] Comment on above: Order Comment: CLEAN CATCH Performed By: #### L 400.0001 ####[facility] [address] [place], [place], [id number] Urine clarityOrdered By: Janes Morales on 10-20-2024 Clarity (U) Clear Clear [facility] Urine color determinationOrd ered By: Luis Angel Morales on 10-20-2024 Color (U) Yellow Yellow [facility] Urine glucose detectionOrder ed By: Luis Angel Morales on 10-20-2024 Glucose Ql (U) Normal mg/dl Normal [facility] Urine leukocyte esterase det ection by dipstickOrdered By: Luis Angel Morales on 10-20-2024 Leukocyte esterase Test strip Ql (U) 25 /ul High Negative [facility] Urine pHOrdered By: Luis Angel moody on 10-20-2024 pH (U) 6.0 [pH] 5.0 - 8.0 [facility] Urine sediment bacteria coun t by microscopy (number/high power field)Ordered By: Luis Angel Morales on 10-20-2024 Bacteria LM.HPF (Urine sed) [#/Area] 0 /[HPF] None Seen [facility] Urine specific gravity measu rementOrdered By: Luis Angel Morales on 10-20-2024 Specific gravity (U) [Rel density] 1.015 1.002-1.030 [facility] Urine urobilinogen measureme ntOrdered By: Luis Angel Morales on 10-20-2024 Urobilinogen Ql (U) Normal mg/dl Normal [facility] White blood cell (WBC) count Ordered By: Luis Angel Morales on 10-20-2024 WBC (Bld) [#/Vol] 10.8 10*3/uL 4.4-11.0 [facility] White blood cell countOrdere d By: Luis Angel Morales on 10-20-2024 White blood cell count 5-10 SEEN /hpf 0-5 [facility] 36on 09-29-2024 36 S: Patient spoke wit h [facility] nurse regarding cough and chest pain. B: Onset of symptoms/concern last couple days. A: Patient has moist productive cough with yellowish mucus. Patient states she is coughing so hard that it is causing chest pain. She doesn't have the chest pain when not coughing. She reports her left eye is irritated- feels like something is in the eye and a red line above eyelid. Patient has used her albuterol inhaler prn for shortness of breath- last used last night. Clear nasal drainage, sore throat, and wheezing all the time. Patient is talking in complete sentences and no wheezing heard. Denies any fever, difficulty breathing, shortness of breath, chest pain at this time, R: No appointments for today in PCP or POD office in [place]. Patient declined POD appointment in [place] and will go to an urgent care to be seen. Patient advised to use cough drop, honey at bedtime, humidifier, inhale warm mist, sip on warm fluids, drink plenty of fluids, use OTC cough and pain medications per package instructions. Patient understands care advice. No further needs at this time. Patient instructed to call back with new or worsening symptoms. Reason for Disposition Wheezing is present Protocols used: [id number] [facility] Emergency Department Summary on 09-04-2024 Emergency Department Summary [facility] Medical Records Department [address] [place] [address] Emergency Department Summary 09/04/24 MR#: [id number] Acct: [id number] Name: ORTIZ MASON Rep #: [id number] : 1970 54 From: Narciso Baron DO PCP: Dr. Amandeep Loredo, DO Status:REG ER Location: ED HPI History of Present Illness Chief Complaint: Fall [facility] Medical History NSTEMI (non-ST elevated myocardial infarction) Cardiac arrest COVID-19 Brain aneurysm Chronic pain Rheumatoid arthritis Kidney stones Kidney disease GERD (gastroesophageal reflux disease) Former smoker Sleep apnea Asthma Migraines Seizures Home Medications ???Medication ???Instructions ???Recorded ???Last Taken ???Type yjkzhfua-rjnp-yuem 8 mg-folic 400 1 tab PO DAILY [...] Muscle Spasm #20 05/11/24 Unknown Rx TABLETS oxycodone-acetaminophen 5 mg-325 1 tab PO Q6H PRN PRN Pain 3 days 06/29/24 Unknown Rx mg tablet #10 TABLETS oxycodone-acetaminophen 5 mg-325 1 tab PO Q6H PRN pain 5 days #20 08/07/24 Unknown Rx mg tablet (Percocet) tabs gabapentin 400 mg capsule 800 mg PO DAILY 09/04/24 Unknown History levetiracetam 1,000 mg tablet 1,000 mg PO Q12H 09/04/24 Unknown History (Keppra) omeprazole 20 mg capsule,delayed 20 mg PO BID 09/04/24 Unknown History release Allergy/AdvReac Type Severity Reaction Status Date / Time Penicillins Allergy Anaphylaxis Verified 09/04/24 21:51 propoxyphene napsylate (From Allergy Rash Verified 09/04/24 21:51 Darvocet-N 100) adhesive tape (plastic tape) AdvReac Other Verified 09/04/24 21:51 hydrocodone bitartrate (From AdvReac Itching Verified 09/04/24 21:51 Vicodin) Iodinated Contrast Media AdvReac Vomiting Verified 09/04/24 21:51 (contrast dye - iodinated) venom-honey bee (bee venom AdvReac Chest Verified 09/04/24 21:51 (honey bee)) tightness Surgical History Previous back surgery History of appendectomy History of cholecystectomy Social History household members: none Smoking Status: Former smoker substance use type: does not use EXAM Physical Exam Const Vital Signs: 09/04/24 21:51 09/04/24 21:55 Temperature 97.6 F L Temperature Source Temporal Pulse Rate 97 Respiratory Rate 18 Respiratory Effort Normal Respiratory Depth Normal Respiratory Pattern Normal Blood Pressure 136/117 H Blood Pressure Mean 123 Pulse Ox 100 Oxygen Delivery Method Room Air Room Air [facility] Narrative Medical decision making narrative: HISTORY OF PRESENT ILLNESS: 54 F here for fall. No she fell on ice proxy 1 hour ago. Notes pain in left hip and elbow. She further states she did not lose consciousness. States she was taking out the trash when she slipped and fell onto her left hip. She also notes injury to her left elbow. REVIEW OF SYSTEMS: Pertinent positives: Hip pain, elbow pain Pertinent negatives: Head trauma, loss of consciousness PHYSICAL EXAM: Nursing triage notes reviewed, Vital signs reviewed Primary Survey Airway: Intact Breathing: Bilateral breath sounds Circulation: Palpable bilateral femorals, Palpable bilateral radial, Palpable bilateral DP and Palpable bilateral PT Disability / Spine precautions GCS Score: Eye Openin Verbal Response: 5 Motor Response: 6 Secondary Survey Constitutional: Please see MDM Head: Atraumatic, Midface stable, NO jaw malocclusion, No Cephalohematoma, and No Lacerations noted Eye: Pupils equal round and reactive to light, Extraocular muscles intact and No periorbital ecchymosis or stepoff, no evidence of entrapment ENT: Oropharynx clear, no lacerations, no hemotympanum, no raccoon eyes or castillo sign Cervical spine / Neck: No cervical spine bony tenderness, crepitance, or stepoff deformity Trachea midline Lungs: Clear to auscultation, No asymmetric rise and No crepitus, no flail chest Cardiac: Regular rate and rhythm and No murmurs Abdomen: Soft, Nontender and No rebound Pelvis: Pelvis stable to compression, TTP over left greater trochanter : No evidence of genital injury Back: No midline bony tenderness to thoracic/lumbar/sacral spines Neuro: At baseline, intact strengt (more content not included)... Normal [facility] HIP, UNI W/ Pelvis 2-3 Views on 09-04-2024 HIP, UNI W/ Pelvis 2-3 Views [facility] [address] [place], [place] [id number] HIP, UNI W/ Pelvis 2-3 Views MR#: [id number] Acct: [id number] Name: ORTIZ MASON Rep #: [id number] : 1970 F 54 From: Beverly pedraza MD PCP: Dr. Amandeep Loredo DO Status: REG ER Study: HIP, UNI W/ Pelvis 2-3 Views Date of Exam: 08/17 Exam# [id number] Ordering Dr: [place] [id number] INDICATION: left hip pain EXAMINATION/TECHNIQUE: X-RAY - LEFT XR Hip Unilateral with Pelvis when performed; 2-3 Views COMPARISON: None. FINDINGS: No acute fracture or malalignment. No blastic or lytic lesions. No significant degenerative changes are seen. Posterior fusion hardware seen in the lower lumbar spine. The soft tissues are unremarkable. RAD/HIP, UNI W/ Pelvis 2-3 Views IMPRESSION: No acute radiographic abnormalities. Electronically Signed: Beverly Dotson MD at 23:36 EST , CC: Dr. Amandeep Loredo DO; Dr. Narciso Baron DO [employer]yer: Signed Normal [facility] Emergency Department Summary on 08-07-2024 Emergency Department Summary [facility] Medical Records Department [address] [place] [address] Emergency Department Summary 08/07/24 MR#: [id number] Acct: [id number] Name: ORTIZ MASON Rep #: [id number] : 1970 54 From: Dinana QUINTANA PCP: Dr. Amandeep Loredo DO Status:REG ER Location: ED HPI History of Present Illness Chief Complaint: Lower Extremity Injury Narrative Narrative: Patient presenting today with pain to the right knee after her dog ran into the anterior aspect of her right knee this evening causing her to hyperextend at the knee. She did not fall to the ground, she reports pain with ambulating and bearing weight onto her right leg. She denies other injury. [facility] Medical History NSTEMI (non-ST elevated myocardial infarction) Cardiac arrest COVID-19 Brain aneurysm Chronic pain Rheumatoid arthritis Kidney stones Kidney disease GERD (gastroesophageal reflux disease) Former smoker Sleep apnea Asthma Migraines Seizures Home Medications ???Medication ???Instructions ???Recorded ???Last Taken ???Type irfhyhqa-svjf-gswd 8 mg-folic 400 1 tab PO DAILY [...] Muscle Spasm #20 05/11/24 Unknown Rx TABLETS oxycodone-acetaminophen 5 mg-325 1 tab PO Q6H PRN PRN Pain 3 days 06/29/24 Unknown Rx mg tablet #10 TABLETS Allergy/AdvReac Type Severity Reaction Status Date / Time Penicillins Allergy Anaphylaxis Verified 08/07/24 21:26 propoxyphene napsylate (From Allergy Rash Verified 08/07/24 21:26 Darvocet-N 100) adhesive tape (plastic tape) AdvReac Other Verified 08/07/24 21:26 hydrocodone bitartrate (From AdvReac Itching Verified 08/07/24 21:26 Vicodin) Iodinated Contrast Media AdvReac Vomiting Verified 08/07/24 21:26 (contrast dye - iodinated) venom-honey bee (bee venom AdvReac Chest Verified 08/07/24 21:26 (honey bee)) tightness Surgical History Previous back surgery History of appendectomy History of cholecystectomy Social History household members: none Smoking Status: Former smoker substance use type: does not use ROS ROS ED Constitutional Constitutional ED: Denies chills or fever(s) Cardiovascular Cardiovascular: Denies chest pain Respiratory/Chest Respiratory/Chest: Denies dyspnea Gastrointestinal Gastrointestinal: Denies abdominal pain, nausea or vomiting Musculoskeletal Musculoskeletal: Reports arthralgias Integumentary Denies Abrasions Neurologic Neurologic: Denies paresthesias EXAM Physical Exam Const Vital Signs: 08/07/24 21:26 Temperature 97 F L Temperature Source Temporal Pulse Rate 97 Respiratory Rate 18 Blood Pressure 138/112 H Blood Pressure Mean 120 Pulse Ox 97 Oxygen Delivery Method Room Air Positive well nourished, well developed and no apparent distress General Appearance ED: well developed HEENT Reports normocephalic and head/scalp atraumatic Mouth ED: Yes moist mucous membranes normal Eyes PERRL and EOMs intact bilaterally Neck full ROM and supple Chest Wall inspection of chest normal Resp normal respiratory effort and clear to auscultation bilaterally Cardio regular rate and regular rhythm Back/Spine normal ROM and normal to inspection Extremity normal to inspection Extremity Narrative: Pain to the posterior aspect of the right knee, flexor and extensor mechanisms intact, painful range of motion to the right knee, no joint laxity, right DP pulse 2+, good cap refill, sensation intact. Neuro oriented x3, CN's II-XII intact bilaterally, moves all extremities, no focal motor deficits and no sensory deficits noted Sensorium / Orientation: awake and alert Psych mental status grossly normal and thought process normal Skin no rashes or lesions noted and no wounds Physical Exam Const Vital Signs: 08/07/24 21:26 Temperature 97 F L Temperature Source Temporal Pulse Rate 97 Respiratory Rate 18 Blood Pressure 138/112 H Blood Pressure Mean 120 Pulse Ox 97 Oxygen Delivery Method Room Air MDM MDM MDM Narrative Medical decision making narrative: Patient presenting today with pain in her right knee after her 70 pound (more content not included)... Normal [facility] Knee 3 Viewson 08-07-2024 Knee 3 Views [facility] [address] [place], [place] [id number] Knee 3 Views MR#: [id number] Acct: [id number] Name: ORTIZ MASON Rep #: [id number] : 1970 F 54 From: Delbert rebolledo MD PCP: Dr. Amandeep Loredo, DO Status: REG ER Study: Knee 3 Views Date of Exam: 08/07/24 Exam# [id number] Ordering Dr: Dianna Seo [id number] EXAM: XR RIGHT KNEE, 3 VIEWS CLINICAL INDICATION: pain TECHNIQUE: Three views of the right knee. COMPARISON: Left knee radiographs of 01/24/2024. FINDINGS: BONES/JOINTS: Unremarkable. No acute fracture. No subluxation. Normal alignment. Preservation of the joint space. No sclerotic or destructive changes observed. SOFT TISSUES: Minimal soft tissue swelling anterior to the infrapatellar tendon. No radiopaque foreign body. No suprapatellar knee effusion. RAD/Knee 3 Views IMPRESSION: Minimal soft tissue swelling. No acute fracture or dislocation. Electronically Signed: Delbert Henry MD at 22:11 EST , CC: Dr. Amandeep Loredo, ; LILIAN Alcocer [employer] Dyer: Signed [facility] 36on 07-14-2024 36 Spoke to pt to mansir m her how sorry we are to hear about her brother. Also informed her that her GNS would have no effects on her bowel movements, flatus as these are not related to gastroparesis. Our PA John encourages her to reach out to her PCP or GI for assistance with her bowels. If she is struggling with constipation, this very well may also worsen her nausea/emesis symptoms. John also encourages her to fix her bowel symptoms to re-evaluate symptoms, and if nausea/emesis are still abnormal, can f/u with PA or Dr. Jerez for GNS interrogation. Pt said thanks for the sympathy and she will try the recommendations and states understanding. [facility] 36 I'm sorry to hear ab out her brother. Her GNS would have no effects on her bowel movements, flatus as these are not related to gastroparesis. I would encourage her to reach out to her PCP or GI for assistance with her bowels. If she is struggling with constipation, his very well may also worsen her nausea/emesis symptoms. I would encourage her to fix her bowel symptoms to re-evaluate symptoms, and if nausea/emesis are still abnormal, can f/u with PA or Dr. Jerez for GNS interrogation. Thanks. Normal [facility] 36 Pt called today arias use she believes something is wrong with her GNS. It was last removed and replaced in November of 2017. She C/O having a hard time going to the bathroom and having a lot of gas that smells like rotten eggs. She is also complaining of belching and when she goes to the bathroom it is bad smell. She also states she has been very nauseous and sometimes vomits and it is a weird color as well. She states her stomach hurts all the time. She stated this has been going on for a couple of weeks and she recently lost her brother. Please advise thanks. Ok to LVM on her phone her phone is a business phone. Normal [facility] Basic Metabolic Profile (BMP )on 06-29-2024 BUN/CRE 18.2 RATIO Normal 10-20 [facility] Comment on above: Performed By: #### L 500.2500, L100.0100 ####[facility] [address] [place], [address] CA,Total 8.8 mg/dL Normal 8.5-10.1 [facility] Comment on above: Performed By: #### L 500.2500, L100.0100 ####[facility] [address] [place], [address] Chloride [Moles/Vol] 112 mmol/L High 98-107 [facility] Comment on above: Performed By: #### L 500.2500, L100.0100 ####[facility] [address] [place], [address] CO2 [Moles/Vol] 24.0 mmol/L Normal 21.0-32.0 [facility] Comment on above: Performed By: #### L 500.2500, L100.0100 ####[facility] [address] [place], [address] Creatinine [Mass/Vol] 0.55 mg/dL Normal 0.55-1.02 [facility] Comment on above: Result Comment: The validity of the calculated GFR GFRAA in patients over 70 years has not been determined. Clinical correlation is essential. Performed By: #### L 500.2500, L100.0100 ####[facility] [address] [place], [address] ECRCL 131.95 ml/min Normal [facility] Comment on above: Performed By: #### L 500.2500, L100.0100 ####[facility] [address] [place], [address] EST GFR - AA 147 mL/min Normal >60 [facility] Comment on above: Result Comment: Afri can Guinean GFR Calc Performed By: #### L 500.2500, L100.0100 ####[facility] [address] [place], [address] GAP 5 Normal 5-15 [facility] Comment on above: Performed By: #### L 500.2500, L100.0100 ####[facility] [address] [place], [address] GFR/1.73 sq M.predicted among non-blacks MDRD (S/P/Bld) [Vol rate/Area] 122 mL/min/{1.73_m2} Normal >60 [facility] Comment on above: Result Comment: Non- GFR Calc Performed By: #### L 500.2500, L100.0100 ####[facility] [address] [place], [address] Glucose [Mass/Vol] 100 mg/dL Normal 74-106 [facility] Comment on above: Result Comment: Fast ing Glucose result from 100 to 125 mg/dL suggests IMPAIRED HOMEOSTASIS per A.D.A. criteria. Performed By: #### L 500.2500, L100.0100 ####[facility] [address] [place], [address] Potassium [Moles/Vol] 4.0 mmol/L Normal 3.5-5.1 [facility] Comment on above: Performed By: #### L 500.2500, L100.0100 ####[facility] [address] [place], [address] Sodium [Moles/Vol] 141 mmol/L Normal 136-145 [facility] Comment on above: Performed By: #### L 500.2500, L100.0100 ####[facility] [address] [place], [address] Urea nitrogen [Mass/Vol] 10 mg/dL Normal 7-18 [facility] Comment on above: Performed By: #### L 500.2500, L100.0100 ####[facility] [address] [place], [address] CBC W/Diff, Automatedon 11-0 6-2024 Absolute Lymph 2.29 X10 3/uL Normal 0.83-4.51 [facility] Comment on above: Performed By: #### L 100.0100 #### [facility] [address] [place], [address] Absolute Neut 2.3 X10 3/uL Normal 2.0-7.7 [facility] Comment on above: Performed By: #### L 100.0100 #### [facility] [address] [place], [address] Basophils/100 WBC (Bld) 0.8 % Normal 0-1 [facility] Comment on above: Performed By: #### L 100.0100 #### [facility] [address] [place], [address] Eosinophils/100 WBC (Bld) 2.5 % Normal 0-5 [facility] Comment on above: Performed By: #### L 100.0100 #### [facility] [address] [place], [address] Erythrocyte distribution width (RBC) [Ratio] 12.2 % Normal 11.6-14.6 [facility] Comment on above: Performed By: #### L 100.0100 #### [facility] [address] [place], [address] Hematocrit (Bld) [Volume fraction] 42.6 % Normal 37-47 [facility] Comment on above: Performed By: #### L 100.0100 #### [facility] [address] [place], [address] Hemoglobin (Bld) [Mass/Vol] 14.1 g/dL Normal 12.0-15.0 [facility] Comment on above: Performed By: #### L 100.0100 #### [facility] [address] [place], [address] IG% 0.200 Normal 0.0-0.9 [facility] Comment on above: Result Comment: IG% - Immature Granulocytes (promyelocytes, myelocytes and metamyelocytes) > 1% indicates that a LEFT SHIFT is Present. Performed By: #### L 100.0100 #### [facility] [address] [place], [address] Lymphocytes/100 WBC (Bld) 43.9 % High 19-41 [facility] Comment on above: Performed By: #### L 100.0100 #### [facility] [address] [place], [address] MCH (RBC) [Entitic mass] 31.2 pg Normal 27.0-32.0 [facility] Comment on above: Performed By: #### L 100.0100 #### [facility] [address] [place], [address] MCHC (RBC) [Mass/Vol] 33.1 g/dL Normal 32-36 [facility] Comment on above: Performed By: #### L 100.0100 #### [facility] [address] [place], [address] MCV (RBC) [Entitic vol] 94.2 fL Normal 81-99 [facility] Comment on above: Performed By: #### L 100.0100 #### [facility] [address] [place], [address] Monocytes/100 WBC (Bld) 8.2 % Normal 0-10 [facility] Comment on above: Performed By: #### L 100.0100 #### [facility] [address] [place], [address] Neutrophils/100 WBC (Bld) 44.4 % Low 47-70 [facility] Comment on above: Performed By: #### L 100.0100 #### [facility] [address] [place], [address] Nucleated RBC (Bld) [#/Vol] 0 10*3/uL Normal 0-5 [facility] Comment on above: Performed By: #### L 100.0100 #### [facility] [address] [place], [address] Platelet mean volume (Bld) [Entitic vol] 9.6 fL Normal 6.2-12.0 [facility] Comment on above: Performed By: #### L 100.0100 #### [facility] [address] [place], [address] Platelets (Bld) [#/Vol] 262 10*3/uL Normal 150-450 [facility] Comment on above: Performed By: #### L 100.0100 #### [facility] [address] [place], [address] RBC (Bld) [#/Vol] 4.52 10*6/uL Normal 4.2-5.4 [facility] Comment on above: Performed By: #### L 100.0100 #### [facility] [address] [place], [address] RDW SD 42.3 fl Normal 35.1-43.9 [facility] Comment on above: Performed By: #### L 100.0100 #### [facility] [address] [place], [address] WBC (Bld) [#/Vol] 5.2 10*3/uL Normal 4.4-11.0 [facility] Comment on above: Performed By: #### L 100.0100 #### [facility] [address] [place], [address] Absolute Neut Normal 2.0-7.7 [facility] Comment on above: Result Comment: This specimen has been REJECTED due to Laboratory criteria: Clotted. DIANE ER has been notified of need of recollection. 06/29/24 1035 [place] Performed By: #### L 500.2500, L100.0100 ####[facility] [address] [place], [address] HCT Normal 37-47 [facility] Comment on above: Result Comment: This specimen has been REJECTED due to Laboratory criteria: Clotted. DIANE ER has been notified of need of recollection. 06/29/24 1035 [place] Performed By: #### L 500.2500, L100.0100 ####[facility] [address] [place], [address] HGB Normal 12.0-15.0 [facility] Comment on above: Result Comment: This specimen has been REJECTED due to Laboratory criteria: Clotted. HALLEY CONTRERAS has been notified of need of recollection. 06/29/24 1035 [place] Performed By: #### L 500.2500, L100.0100 ####[facility] [address] [place], [address] MCH Normal 27.0-32.0 [facility] Comment on above: Result Comment: This specimen has been REJECTED due to Laboratory criteria: Clotted. DIANE ER has been notified of need of recollection. 06/29/24 1035 [place] Performed By: #### L 500.2500, L100.0100 ####[facility] [address] [place], [address] MCHC Normal 32-36 [facility] Comment on above: Result Comment: This specimen has been REJECTED due to Laboratory criteria: Clotted. DIANE ER has been notified of need of recollection. 06/29/24 1035 [place] Performed By: #### L 500.2500, L100.0100 ####[facility] [address] [place], [address] MCV Normal 81-99 [facility] Comment on above: Result Comment: This specimen has been REJECTED due to Laboratory criteria: Clotted. DIANE ER has been notified of need of recollection. 06/29/24 1035 [place] Performed By: #### L 500.2500, L100.0100 ####[facility] [address] [place], [address] NEUT% Normal 47-70 [facility] Comment on above: Result Comment: This specimen has been REJECTED due to Laboratory criteria: Clotted. DIANE ER has been notified of need of recollection. 06/29/24 1035 [place] Performed By: #### L 500.2500, L100.0100 ####[facility] [address] [place], [address] PLT Normal 150-450 [facility] Comment on above: Result Comment: This specimen has been REJECTED due to Laboratory criteria: Clotted. DIANE ER has been notified of need of recollection. 06/29/24 1035 [place] Performed By: #### L 500.2500, L100.0100 ####[facility] [address] [place], [address] RBC Normal 4.2-5.4 [facility] Comment on above: Result Comment: This specimen has been REJECTED due to Laboratory criteria: Clotted. DIANE, ER has been notified of need of recollection. 06/29/24 1035 [place] Performed By: #### L 500.2500, L100.0100 ####[facility] [address] [place], [address] RDW CV Normal 11.6-14.6 [facility] Comment on above: Result Comment: This specimen has been REJECTED due to Laboratory criteria: Clotted. DIANE, ER has been notified of need of recollection. 06/29/24 1035 [place] Performed By: #### L 500.2500, L100.0100 ####[facility] [address] [place], [address] RDW SD Normal 35.1-43.9 [facility] Comment on above: Result Comment: This specimen has been REJECTED due to Laboratory criteria: Clotted. DIANE, ER has been notified of need of recollection. 06/29/24 1035 [place] Performed By: #### L 500.2500, L100.0100 ####[facility] [address] [place], [address] WBC Normal 4.4-11.0 [facility] Comment on above: Result Comment: This specimen has been REJECTED due to Laboratory criteria: Clotted. DIANE, ER has been notified of need of recollection. 06/29/24 1035 [place] Performed By: #### L 500.2500, L100.0100 ####[facility] [address] [place], [address] Emergency Department Summary on 06-29-2024 Emergency Department Summary [facility] Medical Records Department [address] [place] [address] Emergency Department Summary 06/29/24 MR#: [id number] Acct: [id number] Name: ORTIZ MASON Rep #: [id number] : 1970 54 From: Kenny Kaye MD PCP: Dr. Amandeep Loredo, DO Status:DEP ER Location: ED HPI History of Present Illness Chief Complaint: Back Informant: patient Narrative Narrative: 54-year-old female gradual onset pain throughout her low back radiating into her buttocks and posterior thighs and medial thighs. She states they feel like charley horses in her legs, they are tightening up, hurts more to walk and move, to the point where she was up all night miserable from all of this pain. She denies any numbness or weakness. She denies any saddle anesthesia. She has been having trouble having bowel movements the last couple days but she is urinating normally and she has no incontinence. 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 The reason for the surgeries sounds like it was probably severe arthritis/DDD according to her description. [facility] Medical History (Updated 06/29/24 @ 12:[address] Kenny Kaye MD) NSTEMI (non-ST elevated myocardial infarction) Cardiac arrest COVID-19 Brain aneurysm Chronic pain Rheumatoid arthritis Kidney stones Kidney disease GERD (gastroesophageal reflux disease) Former smoker Sleep apnea Asthma Migraines Seizures Home Medications ???Medication ???Instructions ???Recorded ???Last Taken ???Type dxabezcm-hoku-aglw 8 mg-folic 400 1 tab PO DAILY [...] Muscle Spasm #20 05/11/24 Unknown Rx TABLETS oxycodone-acetaminophen 5 mg-325 1 tab PO Q6H PRN PRN Pain 3 days 06/29/24 Unknown Rx mg tablet #10 TABLETS Allergy/AdvReac Type Severity Reaction Status Date [...] 05/11/24 20:30 (honey bee)) tightness Surgical History Previous back surgery History of appendectomy History of cholecystectomy Social History household members: none Smoking Status: Former smoker substance use type: does not use ROS ROS ED Constitutional Constitutional ED: Denies chills or fever(s) Cardiovascular Cardiovascular: Denies chest pain Respiratory/Chest Respiratory/Chest: Denies dyspnea Gastrointestinal Gastrointestinal: Denies abdominal pain, constipation, diarrhea, fecal incontinence, nausea or vomiting Genitourinary Genitourinary ED: Reports other Details: no urinary retention ; Denies abdominal discomfort or urinary incontinence Musculoskeletal Musculoskeletal: Reports as per HPI, back pain, extremity pain and other Details: Bilateral lower extremity thigh pain, no pain below the knees ; Denies neck pain Integumentary Denies rash or wounds Neurologic Neurologic: Denies headache(s), paresthesias or weakness EXAM Physical Exam Const Vital Signs: 06/29/24 09:19 06/29/24 12:23 Temperature 97.5 F L Temperature Source Temporal Pulse Rate 90 87 Respiratory Rate 24 H 18 Blood Pressure 144/80 H Blood Pressure Mean 101 Pulse Ox 95 96 Oxygen Delivery Method Room Air Room Air Positive well nourished and well developed General Appearance ED: well developed and NAD HEENT Negative for trauma or tenderness Eyes PERRL and EOMs intact bilaterally Neck full ROM and supple Resp normal respiratory effort GI normal to inspection, nondistended, normoactive bowel sounds, soft to palpation and non-tender Back/Spine normal to inspection Back/Spine Narrative: Straight leg raises increased pain in her posterior thighs but there are no radicular symptoms or positive cross leg raises. Lumbar Spine (more content not included)... Normal [facility] Lumbar Spine 2 or 3 Viewson 06-29-2024 Lumbar Spine 2 or 3 Views [facility] [address] [place] [address] Lumbar Spine 2 or 3 Views MR#: [id number] Acct: [id number] Name: ORTIZ MASON Rep #: [id number] : 1970 F 54 From: Joe rodrigues MD PCP: Dr. Amandeep Loredo DO Status: REG ER Study: Lumbar Spine 2 or 3 Views Date of Exam: Exam# [id number] Ordering Dr: [place] [id number] INDICATION: pain EXAMINATION/TECHNIQUE: X-RAY - XR Spine Lumbar 2 or 3 Views COMPARISON: Prior study dated: 05/11/24 FINDINGS: VERTEBRAE: Posterior fusion hardware L3-S1. Disc spacer at L3-L4. Intact hardware. Preserved vertebral body height. No fracture. No spondylolisthesis. Preservation of the normal lumbar lordosis. No significant facet arthropathy. DISCS: Disc space narrowing of L2-L3. INCLUDED ABDOMEN: Included bowel gas pattern is non-obstructive. Generator over the left lower abdomen with wiring extending towards the midline. RAD/Lumbar Spine 2 or 3 Views IMPRESSION: No evidence of lumbar spinal fracture or spondylolisthesis. Intact fusion hardware. Electronically Signed: Joe Morataya MD at 10:39 EST , CC: Dr. Kenny Kaye MD; Dr. Amandeep Loredo DO [employer] Dyer: Signed [facility] 36on 06-06-2024 36 LVM for patient to c all and schedule appointment [facility] 36on 06-02-2024 36 Patient is known to Dr. Meri jay to schedule with PA for GNS interrogation if she is comfortable. Otherwise will have to wait for OV with Dr. Nesha Rodriguez. [facility] 36 Patient LVM stating that she had a gastric stimualtor put in a long time ago. Patient states that she is sick all the time (nausea) and does not think stimulator is working. Please advise. No other complaints [facility] Elbow min 3 Viewson 05-11-20 24 Elbow min 3 Views [facility] [address] [facility] [place] [place] [address] Elbow min 3 Views MR#: [id number] Acct: [id number] Name: ORTIZ MASON Rep #: [id number] : 1970 F 54 From: Kunal Rodriguez MD PCP: Dr. Amandeep Loredo DO Status: PRE ER Study: Elbow min 3 Views Date of Exam: 05/11/24 Exam# [id number] Ordering [place]: [place] [id number] INDICATION: pain, truama EXAMINATION/TECHNIQUE: X-RAY - LEFT XR Elbow Min 3 Views COMPARISON: None. FINDINGS: SOFT TISSUES: Unremarkable. BONES/JOINTS: No fracture or dislocation. No significant degenerative changes. No erosive changes. RAD/Elbow min 3 Views IMPRESSION: No fracture or dislocation. Electronically Signed: Kunal Rodriguez DO at 22:43 EDT , CC: Dr. Mattie Jeffrey DO; Dr. Amandeep Loredo DO [employer]: Signed Normal [facility] Emergency Department Summary on 05-11-2024 Emergency Department Summary [facility] Medical Records Department [address] [place] [address] Emergency Department Summary 05/11/24 MR#: [id number] Acct: [id number] Name: ORTIZ MASON Rep #: [id number] : 1970 54 From: Mattie Jeffrey DO [...] down a flight of stairs. [place] [...] other complaints or concerns at this time. [facility] Medical History NSTEMI (non-ST elevated myocardial infarction) Cardiac arrest COVID-19 Brain aneurysm Chronic pain Rheumatoid arthritis Kidney stones Kidney disease GERD (gastroesophageal reflux disease) Former smoker Sleep apnea Asthma Migraines Seizures Home Medications ???Medication ???Instructions ???Recorded ???Last Taken ???Type qzvnibzs-[id number] 8 mg-folic 400 1 tab PO DAILY [...] over th (more content not included)... Normal [facility] Hand Min 3 Viewson 4 Hand Min 3 Views [facility] Services [address] [place], [place] [address] Hand Min 3 Views MR#: [id number] Acct: [id number] Name: ORTIZ MASON Rep #: [id number] : 1970 F 54 From: Kunal Rodriguez MD PCP: Dr. Amandeep Loredo DO Status: PRE ER Study: Hand Min 3 Views Date of Exam: 05/11/24 Exam# [id number] Ordering [place]: [place] [id number] INDICATION: Injury/Pain EXAMINATION/TECHNIQUE: X-RAY - LEFT XR Hand Min 3 Views COMPARISON: 06/28/2022. FINDINGS: SOFT TISSUES: Unremarkable. BONES/JOINTS: No fracture or dislocation. No significant degenerative changes. No erosive changes. RAD/Hand Min 3 Views IMPRESSION: No fracture or dislocation. Electronically Signed: Kunal Rodriguez DO at 22:48 EDT , CC: Dr. Mattie Jeffrey DO; Dr. Amandeep Loredo DO [employer]: Signed Normal [facility] Lumbar Spine 2 or 3 Viewson 05-11-2024 Lumbar Spine 2 or 3 Views [facility] [address] [place], [place] [address] Lumbar Spine 2 or 3 Views MR#: [id number] Acct: [id number] Name: ORTIZ MASON Rep #: [id number] : 1970 F 54 From: Kunal Rodriguez MD PCP: Dr. Amandeep Loredo DO Status: PRE ER Study: Lumbar Spine 2 or 3 Views Date of Exam: Exam# [id number] Ordering Dr: [place] [id number] INDICATION: Injury/Pain EXAMINATION/TECHNIQUE: X-RAY - XR Spine [...] Mattie Jeffrey DO; Dr. Amandeep Loredo DO [employer]: Signed Normal [facility] Pelvis 1 or 2 Viewson 2023 Pelvis 1 or 2 Views [facility] [address] [place] [address] Pelvis 1 or 2 Views MR#: [id number] Acct: [id number] Name: ORTIZ MASON Rep #: [id number] : 1970 F 54 From: Kunal Rodriguez MD PCP: Dr. Amandeep Loredo DO Status: PRE ER Study: Pelvis 1 or 2 Views Date of Exam: 05/11/24 Exam# [id number] Ordering Dr: [place] [id number] INDICATION: Injury/Pain EXAMINATION/TECHNIQUE: X-RAY - XR Pelvis [...] Mattie Jeffrey DO; Dr. Amandeep Loredo DO [employer]: Signed Normal [facility] Wrist min 3 Viewson 05-11-20 24 Wrist min 3 Views [facility] [address] [place], [place] [address] Wrist min 3 Views MR#: [id number] Acct: [id number] Name: ORTIZ MASON Rep #: [id number] : 1970 F 54 From: Kunal Rodriguez MD PCP: Dr. Amandeep Loredo DO Status: PRE ER Study: Wrist min 3 Views Date of Exam: 05/11/24 Exam# [id number] Ordering [place]: [place] [id number] INDICATION: Injury/Pain EXAMINATION/TECHNIQUE: X-RAY - LEFT XR Wrist Min 3 Views COMPARISON: None. FINDINGS: SOFT TISSUES: Unremarkable. BONES/JOINTS: No fracture or dislocation. No significant degenerative changes. No erosive changes. RAD/Wrist min 3 Views IMPRESSION: No fracture or dislocation. Electronically Signed: Kunal Rodriguez DO at 22:49 EDT , CC: Dr. Mattie Jeffrey DO; Dr. Amandeep Loredo DO [employer]: Signed Normal [facility] Telephone Encounteron 2023 Clerical Specialist Authentication Interface Message Text Situation: Patient calling [...] she has not been seen at since 2015. Assessment: See will call clerk. Recommendation: Triage recommends pt be seen within [...] N/A Protocols used: Rash or Redness - [id number] Normal [facility] Absolute lymphocyte countOrd ered By: Franki Flynn on 12-01-2023 Lymphocytes Auto (Unsp spec) [#/Vol] 2.28 10*3/uL 0.83-4.51 [facility] Automated lymphocyte count a s percentage of total leukocytesOrdered By: Franki Flynn on 12-01-2023 Lymphocytes/100 WBC Auto (Unsp spec) 15.9 % 19-41 [facility] Basophil percentageOrdered B y: Franki Flynn on 12-01-2023 Basophils/100 WBC (Bld) 0.4 % 0-1 [facility] Bilirubin [Mass/Vol] 0.60 mg/dL 0.20-1.00 [facility] Comment on above: For patients on eltr ombopag therapy, use of Dimension [place] TBIL is not recommended. Chloride [Moles/Vol] 102 mmol/L 98-107 [facility] Eosinophils/100 WBC (Bld) 0.1 % 0-5 [facility] Glucose [Mass/Vol] 117 mg/dL 74-106 [facility] Comment on above: Fasting Glucose resu lt from 100 to 125 mg/dL suggests IMPAIRED HOMEOSTASIS per A.D.A. criteria. Hemoglobin (Bld) [Mass/Vol] 15.7 g/dL 12.0-15.0 [facility] Monocytes/100 WBC (Bld) 6.4 % 0-10 [facility] Neutrophils (Bld) [#/Vol] 11.0 10*3/uL 2.0-7.7 [facility] Neutrophils/100 WBC (Bld) 76.8 % 47-70 [facility] Potassium [Moles/Vol] 3.0 mmol/L 3.5-5.1 [facility] Protein [Mass/Vol] 7.7 g/dL 6.4-8.2 [facility] Sodium [Moles/Vol] 141 mmol/L 136-145 [facility] WBC (Bld) [#/Vol] 14.3 10*3/uL 4.4-11.0 [facility] Determination of erythrocyte mean corpuscular volume (MCV)Ordered By: Franki Flynn on 12-01-2023 MCV (RBC) [Entitic vol] 93.7 fL 81-99 [facility] Direct bilirubinOrdered By: Franki Flynn on 12-01-2023 Bilirubin.direct [Mass/Vol] 0.13 mg/dL 0.00-0.30 [facility] Erythrocyte distribution wid th ratioOrdered By: Franki Flynn on 12-01-2023 Erythrocyte distribution width (RBC) [Ratio] 12.3 % 11.6-14.6 [facility] Erythrocyte distribution wid th standard deviationOrdered By: Franki Flynn on 12-01-2023 Erythrocyte distribution width (RBC) [Entitic vol] 42.5 fL 35.1-43.9 [facility] Hematocrit Auto (Bld) [Volum e fraction]Ordered By: Franki Flynn on 12-01-2023 Hematocrit (Bld) [Volume fraction] 47.5 % 37-47 [facility] Immature granulocytes/100 WB C Auto (Bld)Ordered By: Franki Flynn on 12-01-2023 Immature granulocytes/100 WBC (Bld) 0.400 % 0.0-0.9 [facility] Comment on above: IG% - Immature Granu locytes (promyelocytes, myelocytes and metamyelocytes) > 1% indicates that a LEFT SHIFT is Present. Laboratory - Chemistry and C hemistry - challengeOrdered By: Franki Flynn on 12-01-2023 ALP [Catalytic activity/Vol] 152 U/L 45-117 [facility] ALT [Catalytic activity/Vol] 17 U/L 13-56 [facility] CO2 [Moles/Vol] 30.0 mmol/L 21.0-32.0 [facility] Globulin (S) [Mass/Vol] 3.7 g/dL 2.2-4.2 [facility] Lipase [Catalytic activity/Vol] 20 U/L 13-75 [facility] Comment on above: Please note:LIPASE r evised reference range effective 22. New Lipase methodology. Expected to produce lower values than the previous assay method. NEW Reference Range: 13 - 75 U/L Urea nitrogen/Creatinine [Mass ratio] 16.1 mg/mg 10-20 [facility] Laboratory - Hematology and Cell countsOrdered By: Franki Flynn on 12-01-2023 MCH (RBC) [Entitic mass] 31.0 pg 27.0-32.0 [facility] MCHC (RBC) [Mass/Vol] 33.1 g/dL 32-36 [facility] Nucleated RBC/100 WBC (Bld) [Ratio] 0 % 0-5 [facility] Platelet mean volume (Bld) [Entitic vol] 9.6 fL 6.2-12.0 [facility] Platelets (Bld) [#/Vol] 345 10*3/uL 150-450 [facility] No Panel InformationOrdered By: Franki Flynn on 12-01-2023 Estimated Creatinine Clearance Calc 96.45 ml/min [facility] Estimated GFR (MDRD) Amer 104 mL/min >60 [facility] Comment on above: GFR Calc Estimated GFR (MDRD) Non-Af Amer 86 mL/min >60 [facility] Comment on above: Non- GFR Calc RBC Auto (Bld) [#/Vol]Ordere d By: Franki Flynn on 12-01-2023 RBC (Bld) [#/Vol] 5.07 10*6/uL 4.2-5.4 [facility] Serum or plasma calcium tania urement (mass/volume)Ordered By: Franki Flynn on 12-01-2023 Calcium [Mass/Vol] 9.7 mg/dL 8.5-10.1 [facility] Serum or plasma creatinine m easurement (mass/volume)Ordered By: Franki Flynn on 12-01-2023 Creatinine [Mass/Vol] 0.74 mg/dL 0.55-1.02 [facility] Comment on above: The validity of the calculated GFR & GFRAA in patients over 70 years has not been determined. Clinical correlation is essential. Serum or plasma urea nitroge n measurement (mass/volume)Ordered By: Franki Flynn on 12-01-2023 Urea nitrogen [Mass/Vol] 12 mg/dL 7-18 [facility] Thin prep Papanicolaou smear with manual screeningOrdered By: Franki Flynn on 12-01-2023 Thin prep Papanicolaou smear with manual screening 4.0 g/dL 3.2-5.0 [facility] Thin prep Papanicolaou smear with manual screening 16 U/L 15-37 [facility] Thin prep Papanicolaou smear with manual screening 9 5-15 [facility] Absolute lymphocyte countOrd ered By: Narciso Baron on 10-07-2023 Lymphocytes Auto (Unsp spec) [#/Vol] 2.85 10*3/uL 0.83-4.51 [facility] Automated lymphocyte count a s percentage of total leukocytesOrdered By: Narciso Baron on 10-07-2023 Lymphocytes/100 WBC Auto (Unsp spec) 37.3 % 19-41 [facility] Basophil percentageOrdered B y: Narciso Baron on 10-07-2023 Basophils/100 WBC (Bld) 0.9 % 0-1 [facility] Bilirubin [Mass/Vol] 0.10 mg/dL 0.20-1.00 [facility] Comment on above: For patients on eltr ombopag therapy, use of Dimension [place] TBIL is not recommended. Chloride [Moles/Vol] 111 mmol/L 98-107 [facility] Eosinophils/100 WBC (Bld) 1.3 % 0-5 [facility] Glucose [Mass/Vol] 114 mg/dL 74-106 [facility] Comment on above: Fasting Glucose resu lt from 100 to 125 mg/dL suggests IMPAIRED HOMEOSTASIS per A.D.A. criteria. Hemoglobin (Bld) [Mass/Vol] 15.7 g/dL 12.0-15.0 [facility] Monocytes/100 WBC (Bld) 6.3 % 0-10 [facility] Neutrophils (Bld) [#/Vol] 4.1 10*3/uL 2.0-7.7 [facility] Neutrophils/100 WBC (Bld) 53.8 % 47-70 [facility] Potassium [Moles/Vol] 3.8 mmol/L 3.5-5.1 [facility] Protein [Mass/Vol] 7.1 g/dL 6.4-8.2 [facility] Sodium [Moles/Vol] 142 mmol/L 136-145 [facility] WBC (Bld) [#/Vol] 7.6 10*3/uL 4.4-11.0 [facility] Blood manual differential co mment interpretation (narrative result)Ordered By: Narciso Baron on 10-07-2023 Manual differential comment Albert (Bld) [Interp] SCANNED [facility] Determination of erythrocyte mean corpuscular volume (MCV)Ordered By: Narciso Baron on 10-07-2023 MCV (RBC) [Entitic vol] 95.2 fL 81-99 [facility] Erythrocyte distribution wid th ratioOrdered By: Narciso Baron on 10-07-2023 Erythrocyte distribution width (RBC) [Ratio] 12.9 % 11.6-14.6 [facility] Erythrocyte distribution wid th standard deviationOrdered By: Narciso Baron on 10-07-2023 Erythrocyte distribution width (RBC) [Entitic vol] 45.2 fL 35.1-43.9 [facility] Hematocrit Auto (Bld) [Volum e fraction]Ordered By: Narciso Baron on 10-07-2023 Hematocrit (Bld) [Volume fraction] 48.0 % 37-47 [facility] Immature granulocytes/100 WB C Auto (Bld)Ordered By: Narciso Baron on 10-07-2023 Immature granulocytes/100 WBC (Bld) 0.400 % 0.0-0.9 [facility] Comment on above: IG% - Immature Granu locytes (promyelocytes, myelocytes and metamyelocytes) > 1% indicates that a LEFT SHIFT is Present. Laboratory - Chemistry and C hemistry - challengeOrdered By: Narciso Baron on 10-07-2023 Albumin/Globulin [Mass ratio] 1.2 {ratio} 0.9-2.4 [facility] ALP [Catalytic activity/Vol] 183 U/L 45-117 [facility] ALT [Catalytic activity/Vol] 16 U/L 13-56 [facility] CO2 [Moles/Vol] 25.0 mmol/L 21.0-32.0 [facility] Globulin (S) [Mass/Vol] 3.3 g/dL 2.2-4.2 [facility] Urea nitrogen/Creatinine [Mass ratio] 10.5 mg/mg 10-20 [facility] Laboratory - Hematology and Cell countsOrdered By: Narciso Baron on 10-07-2023 MCH (RBC) [Entitic mass] 31.2 pg 27.0-32.0 [facility] MCHC (RBC) [Mass/Vol] 32.7 g/dL 32-36 [facility] Nucleated RBC/100 WBC (Bld) [Ratio] 0 % 0-5 [facility] Platelet mean volume (Bld) [Entitic vol] 10.0 fL 6.2-12.0 [facility] Platelets (Bld) [#/Vol] 301 10*3/uL 150-450 [facility] No Panel InformationOrdered By: Narciso Baron on 10-07-2023 Estimated Creatinine Clearance Calc 106.59 ml/min [facility] Estimated GFR (MDRD) Amer 118 mL/min >60 [facility] Comment on above: GFR Calc Estimated GFR (MDRD) Non-Af Amer 98 mL/min >60 [facility] Comment on above: Non- GFR Calc RBC Auto (Bld) [#/Vol]Ordere d By: Narciso Baron on 10-07-2023 RBC (Bld) [#/Vol] 5.04 10*6/uL 4.2-5.4 [facility] Serum or plasma calcium tania urement (mass/volume)Ordered By: Narciso Baron on 10-07-2023 Calcium [Mass/Vol] 9.0 mg/dL 8.5-10.1 [facility] Serum or plasma creatinine m easurement (mass/volume)Ordered By: Narciso Baron on 10-07-2023 Creatinine [Mass/Vol] 0.67 mg/dL 0.55-1.02 [facility] Comment on above: The validity of the calculated GFR & GFRAA in patients over 70 years has not been determined. Clinical correlation is essential. Serum or plasma urea nitroge n measurement (mass/volume)Ordered By: Narciso Baron on 10-07-2023 Urea nitrogen [Mass/Vol] 7 mg/dL 7-18 [facility] Thin prep Papanicolaou smear with manual screeningOrdered By: Narciso Baron on 10-07-2023 Thin prep Papanicolaou smear with manual screening 3.8 g/dL 3.2-5.0 [facility] Thin prep Papanicolaou smear with manual screening 15 U/L 15-37 [facility] Thin prep Papanicolaou smear with manual screening 6 5-15 [facility] No Panel Informationon 07-06 Bismark Mott DO 07/06/2023 4:20 PM [facility] Neurology Lab EMG/NCS report: Patient: Ortiz Mason AGE: 53 y.o. Handedness: Right Gender: Female [...] for this study were taken from the [facility] reference values. This dictation was done by using the dragon medical dictation system. It has been proofread but still may contain unrecognized voice recognition errors. [facility] CT HEAD OR BRAIN W/O RODRIGOBRENDAN Angelo 03-06-2023 CT HEAD OR BRAIN W/O CONTRAST [...] shift. No abnormal extra-axial fluid collection. The lira-white differentiation is maintained without evidence of an [...] Date: 03/06/2023 12:14:25 AM Ordering Provider: BELINDA COVARRUBIAS [facility] ([place]) [place] SPINE CERVICAL W/O KING Prado 03-06-2023 CT SPINE CERVICAL W/O CONTRAST ORIGINAL [...] Sign Date: 03/06/2023 12:33:41 AM Ordering Provider: [facility] ([place]) XR CLAVICLE RIGHTon 03-06-20 XR CLAVICLE RIGHT ORIGINAL EXAMINATION: 2 XRAY [...] Sign Date: 03/06/2023 12:34:46 AM Ordering Provider: [facility] [place] XR SHOULDER MINIMUM 2 VIEWS RIGHTon 03-06-2023 [...] Date: 03/06/2023 12:35:36 AM Ordering Provider: BELINDA COVARRUBIAS [facility] ([place]) CBC W Auto Differential pane l (Bld)Ordered By: Rudy Franco on 11-27-2022 Basophils (Bld) [#/Vol] 0.1 10*3/uL 0.0 - 0.2 10*3/uL [facility] Basophils/100 WBC (Bld) 1.2 % 0.0 - 2.0 % [facility] Eosinophils (Bld) [#/Vol] 0.2 10*3/uL 0.0 - 0.5 10*3/uL [facility] Eosinophils/100 WBC (Bld) 2.4 % 1.0 - 6.0 % [facility] Erythrocyte distribution width (RBC) [Ratio] 13.7 % 11.5 - 14.5 % [facility] Hematocrit (Bld) [Volume fraction] 36.4 % 35.0 - 47.0 % [facility] Hemoglobin (Bld) [Mass/Vol] 12.4 g/dL 11.7 - 16.0 g/dL [facility] Interpretation and review of laboratory results Abnormal [facility] Lymphocytes (Bld) [#/Vol] 3.0 10*3/uL 1.0 - 4.3 10*3/uL [facility] Lymphocytes/100 WBC (Bld) 42.5 % High 20.0 - 40.0 % [facility] MCH (RBC) [Entitic mass] 32.0 pg 26.0 - 34.0 pg [facility] MCHC (RBC) [Mass/Vol] 34.0 % 32.0 - 36.0 % [facility] MCV (RBC) [Entitic vol] 94.0 fL 80.0 - 98.0 fL [facility] Monocytes (Bld) [#/Vol] 0.6 10*3/uL 0.0 - 0.8 10*3/uL [facility] Monocytes/100 WBC (Bld) 8.2 % 2.0 - 10.0 % [facility] Neutrophils (Bld) [#/Vol] 3.2 10*3/uL 1.8 - 7.0 10*3/uL [facility] Neutrophils/100 WBC (Bld) 45.7 % 40.0 - 80.0 % [facility] Nucleated RBC/100 WBC (Bld) [Ratio] 0.2 % [facility] Platelet mean volume (Bld) [Entitic vol] 7.4 fL 7.4 - 12.4 fL [facility] Platelets (Bld) [#/Vol] 287 10*3/uL 140 - 440 10*3/uL [facility] RBC (Bld) [#/Vol] 3.87 10*6/uL 3.8 - 5.20 10*6/uL [facility] WBC (Bld) [#/Vol] 7.0 10*3/uL 3.6 - 10.7 10*3/uL [facility] Comprehensive metabolic 1998 panelon 11-27-2022 Albumin [Mass/Vol] 3.5 g/dL 3.5 - 5.0 g/dL [facility] ALP [Catalytic activity/Vol] 124 U/L 38 - 126 U/L [facility] ALT [Catalytic activity/Vol] 17 U/L 0 - 34 U/L [facility] Anion gap [Moles/Vol] 8 mmol/L 3 - 13 mmol/L [facility] AST [Catalytic activity/Vol] 37 U/L 15 - 46 U/L [facility] Bilirubin [Mass/Vol] 0.6 mg/dL 0.2 - 1 .3 mg/dL [facility] Calcium [Mass/Vol] 8.4 mg/dL 8.4 - 10. 4 mg/dL [facility] Chloride [Moles/Vol] 109 mmol/L High 98 - 10 7 mmol/L [facility] CO2 [Moles/Vol] 23 mmol/L 22 - 30 mmol/L [facility] Creatinine [Mass/Vol] 0.61 mg/dL 0.52 - 1.04 mg/dL [facility] GFR/1.73 sq M.predicted MDRD (S/P/Bld) [Vol rate/Area] - PINF [facility] Comment on above: Calculation based on the Chronic Kidney Disease Epidemiology Collaboration (CKD-EPI) equation refit without adjustment for race Glucose [Mass/Vol] 99 mg/dL 70 - 100 mg/dL [facility] Interpretation and review of laboratory results Abnormal [facility] Potassium [Moles/Vol] 3.8 mmol/L 3.5 - 5.1 mmol/L [facility] Protein [Mass/Vol] 6.1 g/dL Low 6.3 - 8.2 g/dL [facility] Sodium [Moles/Vol] 140 mmol/L 135 - 145 mmol/L [facility] Urea nitrogen [Mass/Vol] 16 mg/dL 7 - 17 mg/dL [facility] Slightly Hemolyzed. Interpret K+, ALKP, AST with caution. [facility] CBC W Auto Differential pane l (Bld)Ordered By: Lesly Singh on 11-26-2022 Basophils (Bld) [#/Vol] 0.0 10*3/uL 0.0 - 0.2 10*3/uL [facility] Basophils/100 WBC (Bld) 0.7 % 0.0 - 2.0 % [facility] Eosinophils (Bld) [#/Vol] 0.0 10*3/uL 0.0 - 0.5 10*3/uL [facility] Eosinophils/100 WBC (Bld) 0.3 % Low 1.0 - 6.0 % [facility] Erythrocyte distribution width (RBC) [Ratio] 13.5 % 11.5 - 14.5 % [facility] Hematocrit (Bld) [Volume fraction] 39.4 % 35.0 - 47.0 % [facility] Hemoglobin (Bld) [Mass/Vol] 12.7 g/dL 11.7 - 16.0 g/dL [facility] Interpretation and review of laboratory results Abnormal [facility] Lymphocytes (Bld) [#/Vol] 1.9 10*3/uL 1.0 - 4.3 10*3/uL [facility] Lymphocytes/100 WBC (Bld) 25.7 % 20.0 - 40.0 % [facility] MCH (RBC) [Entitic mass] 30.4 pg 26.0 - 34.0 pg [facility] MCHC (RBC) [Mass/Vol] 32.3 % 32.0 - 36.0 % [facility] MCV (RBC) [Entitic vol] 94.4 fL 80.0 - 98.0 fL [facility] Monocytes (Bld) [#/Vol] 0.7 10*3/uL 0.0 - 0.8 10*3/uL [facility] Monocytes/100 WBC (Bld) 9.0 % 2.0 - 10.0 % [facility] Neutrophils (Bld) [#/Vol] 4.8 10*3/uL 1.8 - 7.0 10*3/uL [facility] Neutrophils/100 WBC (Bld) 64.3 % 40.0 - 80.0 % [facility] Nucleated RBC/100 WBC (Bld) [Ratio] 0.0 % [facility] Platelet mean volume (Bld) [Entitic vol] 7.1 fL Low 7.4 - 12.4 fL [facility] Platelets (Bld) [#/Vol] 322 10*3/uL 140 - 440 10*3/uL [facility] RBC (Bld) [#/Vol] 4.18 10*6/uL 3.8 - 5.20 10*6/uL [facility] WBC (Bld) [#/Vol] 7.4 10*3/uL 3.6 - 10.7 10*3/uL [facility] Comprehensive metabolic 1998 panelon 11-26-2022 Albumin [Mass/Vol] 3.5 g/dL 3.5 - 5.0 g/dL [facility] ALP [Catalytic activity/Vol] 132 U/L High 38 - 126 U/L [facility] ALT [Catalytic activity/Vol] 14 U/L 0 - 34 U/L [facility] Anion gap [Moles/Vol] 6 mmol/L 3 - 13 mmol/L [facility] AST [Catalytic activity/Vol] 30 U/L 15 - 46 U/L [facility] Bilirubin [Mass/Vol] 0.5 mg/dL 0.2 - 1 .3 mg/dL [facility] Calcium [Mass/Vol] 8.6 mg/dL 8.4 - 10. 4 mg/dL [facility] Chloride [Moles/Vol] 113 mmol/L High 98 - 10 7 mmol/L [facility] CO2 [Moles/Vol] 19 mmol/L Low 22 - 30 mmol/L [facility] Creatinine [Mass/Vol] 0.51 mg/dL Low 0.52 - 1.04 mg/dL [facility] GFR/1.73 sq M.predicted MDRD (S/P/Bld) [Vol rate/Area] - PINF [facility] Comment on above: Calculation based on the Chronic Kidney Disease Epidemiology Collaboration (CKD-EPI) equation refit without adjustment for race Glucose [Mass/Vol] 89 mg/dL 70 - 100 mg/dL [facility] Interpretation and review of laboratory results Abnormal [facility] Potassium [Moles/Vol] 4.0 mmol/L 3.5 - 5.1 mmol/L [facility] Protein [Mass/Vol] 6.2 g/dL Low 6.3 - 8.2 g/dL [facility] Sodium [Moles/Vol] 138 mmol/L 135 - 145 mmol/L [facility] Urea nitrogen [Mass/Vol] 14 mg/dL 7 - 17 mg/dL [facility] HIV 1+2 Ab+HIV1 p24 Ag IA Ql on 11-26-2022 Interpretation and review of laboratory results Normal [facility] Laboratory - Drug toxicology on 11-26-2022 levETIRAcetam [Mass/Vol] ug/mL Low 10 - 40 ug/mL [facility] Comment on above: INTERPRETIVE INFORMA TION: Keppra (Levetiracetam) Therapeutic Range: 10-40 ug/mL Toxic: Not well Established Pharmacokinetics of levetiracetam are affected by renal function. Adverse effects may include somnolence, weakness, headache and vomiting. This levetiracetam (Keppra) immunoassay uses the nScaled reagents, which has known cross-reactivity with the drug brivaracetam (Briviact) and may report inaccurate results. Patients transitioning from levetiracetam to brivaracetam or those who are using both medications should not monitor drug concentrations with the [employer] assay. These patients should be monitored using a validated chromatographic methodology that distinguishes between drugs to determine drug concentrations. Performed By: [facility] [address] [place] [id number] [employer] Scheduler: Clem Gregg MD, PhD Laboratory - Drug toxicology Ordered By: Dawit Maldonado on 11-26-2022 Amphetamines Ql (U) Negative Negative [facility] Benzodiazepines Ql (U) Negative Negative [facility] Cocaine Ql (U) Positive Negative [facility] Ethanol [Mass/Vol] Negative Negative [facility] Methadone Ql (U) Negative Negative [facility] alth Opiates Ql (U) Positive Negative [facility] Laboratory - Microbiology an d Antimicrobial susceptibilityon 11-26-2022 HIV 1+2 Ab+HIV1 p24 Ag IA Ql Non-Reactive Nonreactive [facility] Comment on above: The specimen was non -reactive for HIV-1 and HIV-2 antibodies and p24 antigen using an FDA-cleared 4th generation HIV test. Based on this non-reactive screen result, further reflexive testing was not indicated and was, therefore, not performed. Laboratory - Microbiology an d Antimicrobial susceptibilityOrdered By: Ricky Kincaid on 11-26-2022 Reagin Ab RPR Ql (S) Non-Reactive Nonreactive S [facility] No Panel Informationon 11-26 Interpretation and review of laboratory results Abnormal [facility] No evidence of deep vein thrombosis in [...] filling and normal phasic and spontaneous flow. Informatics Nurse Details A lira scale, color Doppler imaging and spectral Doppler [...] Dawit Maldonado on 11-26-2022 BARBITURATES Negative Negative [facility] BUPRENORPHINE SCREEN Negative Negative [facility] FENTANYL Positive Negative [facility] OXYCODONE/OXYMORPHONE Positive Negative [facility] PCP Negative Negative [facility] THC Negative Negative [facility] The expected value f or the drugs [...] treatment only. Analysis performed using non-forensic procedures. [facility] Reagin Ab RPR Ql (S)Ordered By: Ricky Kincaid on 11-26-2022 Interpretation and review of laboratory results Normal [facility] US Heart TransthoracicOrdere d By: Gem Shearer on 11-26-2022 Ao Root Index 1.57 cm[facility]2 [facility] Work Phone: Aortic Root 3.0 cm [facility] Work Phone: [phone] Ascending Aorta 2.5 cm [facility] Work Phone: [phone] Ascending Aorta Index 1.31 cm/m2 [facility] Work Phone: [phone] E/E' Lateral 5.82 [facility] Work Phone: [phone] E/E' Ratio (Averaged) 5.82 [facility] Work Phone: [phone] E/E' Septal 5.82 [facility] Work Phone: [phone] EF BP 58 % 55 - 100 % [facility] Work Phone: [phone] Fractional Shortening 2D 21 % 28 - 44 % [facility] [employer] Phone: Interpretation and review of laboratory results Abnormal [facility] Work Phone: IVSd 1.0 cm Abnormal 0.6 - 0.9 cm [facility] Work Phone: LA Diameter 3.2 cm [facility] Work Phone: LA Size Index 1.68 cm/m2 [facility] Work Phone: LA Volume 2C 59 mL Abnormal 22 - 52 mL [facility] Work Phone: LA Volume 4C 31 mL 22 - 52 mL [facility] Work Phone: LA Volume A/L 54 mL [facility] Work Phone: LA Volume BP 46 mL 22 - 52 mL [facility] Work Phone: LA Volume Index 2C 31 mL/m2 16 - 34 mL/m2 [facility] Work Phone: LA Volume Index 4C 16 mL/m2 16 - 34 mL/m2 [facility] Work Phone: LA Volume Index A/L 28 mL/m2 16 - 34 mL/m2 [facility] Work Phone: LA Volume Index BP 24 ml/m2 16 - 34 ml/m2 [facility] Work Phone: LA/AO Root Ratio 1.07 [facility] Work Phone: LV E' Lateral Velocity 11 cm/s [facility] Work Phone: LV E' Septal Velocity 11 cm/s [facility] Work Phone: LV EDV A2C 117 mL [facility] Work Phone: LV EDV A4C 85 mL [facility] Work Phone: LV EDV BP 108 mL Abnormal 56 - 104 mL [facility] Work Phone: LV EDV Index A2C 61 mL/m2 [facility] Work Phone: LV EDV Index A4C 45 mL/m2 [facility] Work Phone: LV EDV Index BP 57 mL/m2 [facility] Work Phone: LV Ejection Fraction A2C 62 % [facility] Work Phone: LV Ejection Fraction A4C 53 % [facility] Work Phone: LV ESV A2C 45 mL [facility] Work Phone: [phone] LV ESV A4C 40 mL [facility] Work Phone: [phone] LV ESV BP 45 mL 19 - 49 mL [facility] Work Phone: [phone] LV ESV Index A2C 24 mL/m2 [facility] Work Phone: [phone] LV ESV Index A4C 21 mL/m2 [facility] Work Phone: [phone] LV ESV Index BP 24 mL/m2 [facility] Work Phone: [phone] LV Mass 2D 158.8 g 67 - 162 g [facility] Work Phone: [phone] LV Mass 2D Index 83.2 g/m2 43 - 95 g/m2 [facility] Work Phone: [phone] LV RWT Ratio 0.38 [facility] Work Phone: [phone] LVIDd 4.8 cm 3.9 - 5.3 cm [facility] Work Phone: [phone] LVIDd Index 2.51 cm/m2 [facility] Work Phone: [phone] LVIDs 3.8 cm [facility] Work Phone: [phone] LVIDs Index 1.99 cm/m2 [facility] Work Phone: [phone] LVOT Area 4.5 cm2 [facility] Work Phone: [phone] LVOT Cardiac Output 3.7 liter/minute [facility] Work Phone: [phone] LVOT Diameter 2.4 cm [facility] Work Phone: [phone] LVOT Mean Gradient 1 mmHg [facility] Work Phone: [phone] LVOT Peak Gradient 2 mmHg [facility] Work Phone: [phone] LVOT Peak Velocity 0.6 m/s [facility] Work Phone: [phone] LVOT Stroke Volume Index 31.5 mL/m2 [facility] Work Phone: [phone] LVOT SV 60.1 ml [facility] Work Phone: [phone] LVOT VTI 13.3 cm [facility] Work Phone: [phone] LVPWd 0.9 cm 0.6 - 0.9 cm [facility] Work Phone: [phone] MV A Velocity 0.43 m/s [facility] [employer] Work Phone: [phone] MV E Velocity 0.64 m/s [facility] [employer] Work Phone: [phone] E Wave Deceleration Time 129.1 ms [facility] Work Phone: [phone] MV E/A 1.49 [facility] Work Phone: [phone] RV Basal Dimension 2.9 cm [facility] Work Phone: [phone] RV Longitudinal Dimension 5.8 cm [facility] Work Phone: [phone] Mid Dimension 2.3 cm [facility] Work Phone: [phone] TAPSE 1.4 cm Abnormal 1.7 cm [facility] Work Phone: [phone] [facility] Work Phone: [phone] Heart Transthoracicon Left Ventricle: Left ventricle size [...] [Moles/Vol] 8 mmol/L 3 - 13 mmol/L [facility] Calcium [Mass/Vol] 9.3 mg/dL 8.4 - 10. 4 mg/dL [facility] Chloride [Moles/Vol] 107 mmol/L 98 - 10 7 mmol/L [facility] CO2 [Moles/Vol] 26 mmol/L 22 - 30 mmol/L [facility] Creatinine [Mass/Vol] 0.61 mg/dL 0.52 - 1.04 mg/dL [facility] GFR/1.73 sq M.predicted MDRD (S/P/Bld) [Vol rate/Area] - PINF [facility] Comment on above: Calculation based on the Chronic Kidney Disease Epidemiology Collaboration (CKD-EPI) equation refit without adjustment for race Glucose [Mass/Vol] 108 mg/dL High 70 - 100 mg/dL [facility] Interpretation and review of laboratory results Abnormal [facility] Potassium [Moles/Vol] 3.7 mmol/L 3.5 - 5.1 mmol/L [facility] Sodium [Moles/Vol] 141 mmol/L 135 - 145 mmol/L [facility] Urea nitrogen [Mass/Vol] 14 mg/dL 7 - 17 mg/dL [facility] CBC W Auto Differential pane l (Bld)Ordered By: Janene Rubio on 11-25-2022 Basophils (Bld) [#/Vol] 0.0 10*3/uL 0.0 - 0.2 10*3/uL [facility] Basophils/100 WBC (Bld) 0.7 % 0.0 - 2.0 % [facility] Eosinophils (Bld) [#/Vol] 0.1 10*3/uL 0.0 - 0.5 10*3/uL [facility] Eosinophils/100 WBC (Bld) 1.6 % 1.0 - 6.0 % [facility] Erythrocyte distribution width (RBC) [Ratio] 13.8 % 11.5 - 14.5 % [facility] Hematocrit (Bld) [Volume fraction] 47.5 % High 35.0 - 47.0 % [facility] Hemoglobin (Bld) [Mass/Vol] 15.7 g/dL 11.7 - 16.0 g/dL [facility] Interpretation and review of laboratory results Abnormal [facility] Lymphocytes (Bld) [#/Vol] 1.1 10*3/uL 1.0 - 4.3 10*3/uL [facility] Lymphocytes/100 WBC (Bld) 16.8 % Low 20.0 - 40.0 % [facility] MCH (RBC) [Entitic mass] 31.0 pg 26.0 - 34.0 pg [facility] MCHC (RBC) [Mass/Vol] 33.1 % 32.0 - 36.0 % [facility] MCV (RBC) [Entitic vol] 93.8 fL 80.0 - 98.0 fL [facility] Monocytes (Bld) [#/Vol] 0.5 10*3/uL 0.0 - 0.8 10*3/uL [facility] Monocytes/100 WBC (Bld) 7.8 % 2.0 - 10.0 % [facility] Neutrophils (Bld) [#/Vol] 4.7 10*3/uL 1.8 - 7.0 10*3/uL [facility] Neutrophils/100 WBC (Bld) 73.1 % 40.0 - 80.0 % [facility] Nucleated RBC/100 WBC (Bld) [Ratio] 0.2 % [facility] Platelet mean volume (Bld) [Entitic vol] 7.4 fL 7.4 - 12.4 fL [facility] Platelets (Bld) [#/Vol] 328 10*3/uL 140 - 440 10*3/uL [facility] RBC (Bld) [#/Vol] 5.06 10*6/uL 3.8 - 5.20 10*6/uL [facility] WBC (Bld) [#/Vol] 6.5 10*3/uL 3.6 - 10.7 10*3/uL [facility] CT Abdomen and Pelvis W cont rast [facility] 11-25-2022 Patient Name: ORTIZ MASON : 1970 Exam Date/Time: 11/25/2022 17:49 Procedure: CT ABDOMEN PELVIS W CONTRAST Ordering Provider: PARSON DOUGLAS Reason For Exam: concern for intra [...] and L3-L5 laminectomies. No acute osseous findings. [facility] Agustina Zarate M D - 11/25/2022 Patient Name: ORTIZ MASON : 1970 Exam Date/Time: 11/25/2022 17:49 Procedure: CT ABDOMEN PELVIS W CONTRAST Ordering Provider: PARSON DOUGLAS Reason For Exam: concern for intra [...] Electronically Signed Date/Time: 11/25/2022 6:06 PM EDT [facility] CT Head WO contraston 2022 No acute intracranial abnormalities. Report Dictated on Electronically Signed By: Agustina Zarate Electronically Signed Date/Time: 11/25/2022 5:52 PM EDT [facility] 1970 [id number] Exam Date/Time: 11/25/2022 17:49 Procedure: CT HEAD WO IV CONTRAST Ordering Provider: PARSON DOUGLAS Reason For Exam: Seizure disorder, clinical [...] in the sinuses. No acute osseous abnormalities. [facility] Agustina Zarate M D - 11/25/2022 Patient Name: ORTIZ MASON : 1970 Exam Date/Time: 11/25/2022 17:49 Procedure: CT HEAD WO IV CONTRAST Ordering Provider: PARSON DOUGLAS Reason For Exam: Seizure disorder, clinical [...] Electronically Signed Date/Time: 11/25/2022 5:[address] [facility] [address] Head WO contrastOrdered B y: Agustina Zarate on 11-25-2022 [employer] Work Phone: CTA Chest vessels WO and W c ontrast [place] 11-25-2022 Patient Name: ORTIZ MASON : 1970 Exam Date/Time: 11/25/2022 17:49 Procedure: CT CHEST ANGIOGRAM W AND/OR WO IV CONTRAST Ordering Provider: PARSON DOUGLAS Reason For Exam: Chest pain, nonspecific [...] and L3-L5 laminectomies. No acute osseous findings. [facility] Agustina Zarate M D - 11/25/2022 Patient Name: [facility]TIZ MAS[facility] : 1970 [id number] Exam Date/Time: 11/25/2022 17:49 Procedure: CT CHEST ANGIOGRAM W AND/OR WO IV CONTRAST Ordering Provider: PARSON DOUGLAS Reason For Exam: Chest pain, nonspecific [...] Electronically Signed Date/Time: 11/25/2022 6:06 PM EDT [facility] Fibrin D-dimer FEU (PPP) [Ma ss/Vol]on 11-25-2022 Interpretation and review of laboratory results Abnormal [facility] D-Dimer values of <0.50 mg/L FEU can be used in combination with a pre-test probability model (e.g. Well's) to exclude pulmonary embolism (PE) disease, as well as an aid in the diagnosis of deep vein thrombosis (DVT). [facility] Hepatic function 2000 panelo n 11-25-2022 Albumin [Mass/Vol] 4.4 g/dL 3.5 - 5.0 g/dL [facility] ALP [Catalytic activity/Vol] 197 U/L High 38 - 126 U/L [facility] ALT [Catalytic activity/Vol] 19 U/L 0 - 34 U/L [facility] AST [Catalytic activity/Vol] 38 U/L 15 - 46 U/L [facility] Bilirubin [Mass/Vol] 0.6 mg/dL 0.2 - 1 .3 mg/dL [facility] Bilirubin.conjugated [Mass/Vol] 0.0 mg/dL 0.0 - 0.3 mg/dL [facility] Interpretation and review of laboratory results Abnormal [facility] Protein [Mass/Vol] 7.7 g/dL 6.3 - 8.2 g/dL [facility] Laboratory - Chemistry and C hemistry - challengeon 11-25-2022 Cobalamin (Vitamin B12) [Mass/Vol] 642 pg/mL 239 - 931 pg/mL [facility] Folate [Mass/Vol] ng/mL 2.9 - PINF ng/mL [facility] TSH Qn 0.870 m[IU]/L [facility] h Prolactin [Mass/Vol] 6.7 ng/mL 2.8 - 2 7.0 ng/mL [facility] HCG.beta subunit Qn Females < 5 mIU/mL [facility] Troponin I.cardiac [Mass/Vol] ng/mL 0.000 - 0.034 ng/mL [facility] Lactate [Moles/Vol] 1.1 mmol/L 0.7 - 2. 0 mmol/L [facility] Laboratory - Coagulationon 0 11-25-2022 Fibrin D-dimer FEU (PPP) [Mass/Vol] 1.15 mg/L High NINF - 0.50 mg/L [facility] No Panel Informationon 11-25 Interpretation and review of laboratory results Normal [facility] 1. No PE identified. PE cannot be evaluated beyond the segmental level due to the limitations above. 2. Mild emphysematous changes in the lungs. No acute cardiopulmonary abnormalities. 3. No acute intra-abdominal abnormalities. Report Dictated on Electronically Signed By: Agustina Zarate Electronically Signed Date/Time: 11/25/2022 6:06 PM EDT [facility] Radiology Study observation (narrative) [facility] gabby Interpretation and review of laboratory results Normal [facility] Values below 35 ng/m L may be of doubtful significance. Recommend send-out testing to rule out macroprolactin to confirm the result. [facility] Values in should double every 2 to [...] or monitor tumors or gestational trophoblastic disease. [facility] Interpretation and review of laboratory results Normal [facility] P [place] 74 degrees [facility] CO Interval 142 ms [facility] QRS [place] 78 degrees [facility] QRSD Interval 95 ms [facility] QT Interval 362 ms [facility] QTC Interval 484 ms [facility] T Wave [place] 72 degrees [facility] EKG shows sinus tachycardia, normal axis, normal intervals, no STEMI, no SVT. Borderline LVH. Previous EKG shows NSR with diffuse inferior and lateral T waves which are not present today. Electronically Signed On 11-25-2022 10:19:18 EDT by Earl Porter MD - 11/25/2022 IMPRESSION: EKG shows sinus tachycardia, normal axis, normal intervals, no STEMI, no SVT. Borderline LVH. Previous EKG shows NSR with diffuse inferior and lateral T waves which are not present today. Electronically Signed On 11-25-2022 10:19:18 EDT by Earl Parson [facility] Respiratory pathogens DNA an d RNA panel KRISTEN+probe (Nph)on 11-25-2022 Adenovirus Not detected Not Detected [facility] B. pertussis DNA KRISTEN+probe Ql (Unsp spec) Not detected Not Detected [facility] Bordetella parapertussis Not detected Not Detected [facility] Chlamydia pneumoniae Not detected Not Detected [facility] Coronavirus 229E Not detected Not Detected [facility] Coronavirus HKU1 Not detected Not Detected [facility] Coronavirus NL63 Not detected Not Detected [facility] Coronavirus OC43 Not detected Not Detected [facility] FLUAV RNA KRISTEN+non-probe Ql (Nph) Not detected Not Detected [facility] FLUBV RNA KRISTEN+non-probe Ql (Nph) Not detected Not Detected [facility] Human Metapneumovirus Not detected Not Detected [facility] Human Rhinovirus/Enterovirus Not detected Not Detected [facility] Interpretation and review of laboratory results Normal [facility] Mycoplasma pneumoniae Not detected Not Detected [facility] Parainfluenza 1 Not detected Not Detected [facility] Parainfluenza 2 Not detected Not Detected [facility] Parainfluenza 3 Not detected Not Detected [facility] Parainfluenza 4 Not detected Not Detected [facility] Respiratory Syncytial Virus Not detected Not Detected [facility] SARS-CoV-2 (COVID-19) RNA KRISTEN+non-probe Ql (Nph) Not detected Not Detected [facility] Methodology: Multipl ex PCR [facility] TSH Qnon 11-25-2022 Interpretation and review of laboratory results Normal [facility] Troponin I.cardiac [Mass/Vol ]on 11-25-2022 Interpretation and review of laboratory results Normal [facility] Patients with high levels of Biotin oral intake (ie >5 mg/day) may have falsely decreased Troponin levels. [facility] Vital signson 11-25-2022 Heart rate 107 /min bpm [facility] XR Chest Single viewon 11-25 Impression: No acute cardiopulmonary process. Report Dictated on Electronically Signed By: Rudy Valero Electronically Signed Date/Time: 11/25/2022 1:23 PM [facility] Patient Name: ORTIZ MASON : 1970 Exam Date/Time: 11/25/2022 13:04 Procedure: XR CHEST 1 VIEW Ordering Provider: PARSON DOUGLAS Reason For Exam: syncope Examination: Frontal chest Clinical Indication: syncope Comparison: 10/30/2022 Findings: Lungs appear normally inflated. There is no focal consolidation, effusion, or pulmonary edema identified. The cardiomediastinal silhouette is within normal limits. There is no evidence of acute osseous abnormality. Lower cervical fusion hardware plate. Minimal thoracic scoliosis apex rightward. [facility] Rudy Valero MD - 11/25/2022 [facility] Name: [facility]TIZ [facility] 1970 [id number] Exam Date/Time: 11/25/2022 13:04 Procedure: XR CHEST 1 VIEW Ordering Provider: PARSON DOUGLAS Reason For Exam: syncope Examination: Frontal [...] Electronically Signed Date/Time: 11/25/2022 1:23 PM EDT [facility] Radiology Study observation (narrative) [facility] XR Chest Single viewOrdered By: Rudy Valero on 11-25-2022 [facility] Work Phone: Absolute lymphocyte countOrd ered By: Alfredito Guerrero on 11-16-2022 Lymphocytes Auto (Unsp spec) [#/Vol] 4.45 10*3/uL 0.83-4.51 [facility] Basophil percentageOrdered B y: Alfredito Guerrero on 11-16-2022 Basophils/100 WBC (Bld) 0.6 % 0-1 [facility] Eosinophils/100 WBC (Bld) 1.1 % 0-5 [facility] Lactate [Moles/Vol] 0.9 mmol/L 0.4-2.0 [facility] Neutrophils (Bld) [#/Vol] 7.7 10*3/uL 2.0-7.7 [facility] Neutrophils/100 WBC (Bld) 54.4 % 47-70 [facility] WBC (Bld) [#/Vol] 14.1 10*3/uL 4.4-11.0 [facility] Blood erythrocytes count (nu mber/volume)Ordered By: Alfredito Guerrero on 11-16-2022 RBC (Bld) [#/Vol] 4.54 10*6/uL 4.2-5.4 [facility] Blood hemoglobin measurement (mass/volume)Ordered By: Alfredito Guerrero on 11-16-2022 Hemoglobin (Bld) [Mass/Vol] 14.0 g/dL 12.0-15.0 [facility] Blood lymphocytes/100 leukoc ytesOrdered By: Alfredito Guerrero on 11-16-2022 Lymphocytes/100 WBC (Bld) 31.6 % 19-41 [facility] Blood monocytes/100 leukocyt esOrdered By: Alfredito Guerrero on 11-16-2022 Monocytes/100 WBC (Bld) 10.2 % 0-10 [facility] Blood platelet mean volumeOr dered By: Alfredito Guerrero on 11-16-2022 Platelet mean volume (Bld) [Entitic vol] 9.5 fL 6.2-12.0 [facility] Determination of erythrocyte mean corpuscular volume (MCV)Ordered By: Alfredito Guerrero on 11-16-2022 MCV (RBC) [Entitic vol] 95.6 fL 81-99 [facility] Hematocrit Auto (Bld) [Volum e fraction]Ordered By: Alfredito Guerrero on 11-16-2022 Hematocrit (Bld) [Volume fraction] 43.4 % 37-47 [facility] Laboratory - Hematology and Cell countsOrdered By: Alfredito Guerrero on 11-16-2022 Erythrocyte distribution width (RBC) [Entitic vol] 46.1 fL 35.1-43.9 [facility] Erythrocyte distribution width (RBC) [Ratio] 13.1 % 11.6-14.6 [facility] Immature granulocytes/100 WBC (Bld) 2.100 % 0.0-0.9 [facility] Comment on above: IG% - Immature Granu locytes (promyelocytes, myelocytes and metamyelocytes) > 1% indicates that a LEFT SHIFT is Present. MCH (RBC) [Entitic mass] 30.8 pg 27.0-32.0 [facility] Nucleated RBC/100 WBC (Bld) [Ratio] 0 % 0-5 [facility] MCHC Auto (RBC) [Mass/Vol]Or dered By: Alfredito Guerrero on 11-16-2022 MCHC (RBC) [Mass/Vol] 32.3 g/dL 32-36 [facility] Platelets bldOrdered By: Tobin Guerrero on 11-16-2022 Platelets (Bld) [#/Vol] 416 10*3/uL 150-450 [facility] Serum or plasma C reactive p rotein measurement (mass/volume)Ordered By: Alfredito Guerrero on 11-16-2022 CRP [Mass/Vol] 7.14 mg/L 0.0-3.0 [facility] Comment on above: C-Reactive Protein ( CRP) provides useful information for thediagnosis, therapy and monitoring of inflammatory processesand associated diseases. For the evaluation of Relative Riskfor Cardiovascular Disease, a High Sensitivity CRP (HSCRP)should be ordered. Basic metabolic 1998 panelon 11-09-2022 Anion gap [Moles/Vol] 7 mmol/L 3 - 13 mmol/L [facility] Calcium [Mass/Vol] 8.9 mg/dL 8.4 - 10. 4 mg/dL [facility] Chloride [Moles/Vol] 108 mmol/L High 98 - 10 7 mmol/L [facility] CO2 [Moles/Vol] 26 mmol/L 22 - 30 mmol/L [facility] Creatinine [Mass/Vol] 0.68 mg/dL 0.52 - 1.04 mg/dL [facility] GFR/1.73 sq M.predicted MDRD (S/P/Bld) [Vol rate/Area] - PINF [facility] Comment on above: Calculation based on the Chronic Kidney Disease Epidemiology Collaboration (CKD-EPI) equation refit without adjustment for race Glucose [Mass/Vol] 93 mg/dL 70 - 100 mg/dL [facility] Interpretation and review of laboratory results Abnormal [facility] Potassium [Moles/Vol] 3.4 mmol/L Low 3.5 - 5.1 mmol/L [facility] Sodium [Moles/Vol] 142 mmol/L 135 - 145 mmol/L [facility] Urea nitrogen [Mass/Vol] 10 mg/dL 7 - 17 mg/dL [facility] Laboratory - Chemistry and C hemistry - challengeon 11-09-2022 Magnesium [Mass/Vol] 1.9 mg/dL 1.6 - 2 .3 mg/dL [facility] Magnesium [Mass/Vol]on 11-09 Interpretation and review of laboratory results Normal [facility] CBC W Auto Differential pane l (Bld)Ordered By: Mickie Sepulveda on 11-08-2022 Basophils (Bld) [#/Vol] 0.0 10*3/uL 0.0 - 0.2 10*3/uL [facility] Basophils/100 WBC (Bld) 0.3 % 0.0 - 2.0 % [facility] Eosinophils (Bld) [#/Vol] 0.0 10*3/uL 0.0 - 0.5 10*3/uL [facility] Eosinophils/100 WBC (Bld) 0.0 % Low 1.0 - 6.0 % [facility] Erythrocyte distribution width (RBC) [Ratio] 13.7 % 11.5 - 14.5 % [facility] Hematocrit (Bld) [Volume fraction] 37.4 % 35.0 - 47.0 % [facility] Hemoglobin (Bld) [Mass/Vol] 12.6 g/dL 11.7 - 16.0 g/dL [facility] Interpretation and review of laboratory results Abnormal [facility] Lymphocytes (Bld) [#/Vol] 0.7 10*3/uL Low 1.0 - 4.3 10*3/uL [facility] Lymphocytes/100 WBC (Bld) 6.8 % Low 20.0 - 40.0 % [facility] MCH (RBC) [Entitic mass] 31.5 pg 26.0 - 34.0 pg [facility] MCHC (RBC) [Mass/Vol] 33.7 % 32.0 - 36.0 % [facility] MCV (RBC) [Entitic vol] 93.2 fL 80.0 - 98.0 fL [facility] Monocytes (Bld) [#/Vol] 0.3 10*3/uL 0.0 - 0.8 10*3/uL [facility] Monocytes/100 WBC (Bld) 2.5 % 2.0 - 10.0 % [facility] Neutrophils (Bld) [#/Vol] 9.9 10*3/uL High 1.8 - 7.0 10*3/uL [facility] Neutrophils/100 WBC (Bld) 90.4 % High 40.0 - 80.0 % [facility] Nucleated RBC/100 WBC (Bld) [Ratio] 0.0 % [facility] Platelet mean volume (Bld) [Entitic vol] 8.8 fL 7.4 - 12.4 fL [facility] Platelets (Bld) [#/Vol] 215 10*3/uL 140 - 440 10*3/uL [facility] RBC (Bld) [#/Vol] 4.02 10*6/uL 3.8 - 5.20 10*6/uL [facility] WBC (Bld) [#/Vol] 11.0 10*3/uL High 3.6 - 10.7 10*3/uL [facility] CBC W Auto Differential pane l (Bld)Ordered By: Rudy Franco on 11-07-2022 Basophils (Bld) [#/Vol] 0.0 10*3/uL 0.0 - 0.2 10*3/uL [facility] Basophils/100 WBC (Bld) 0.1 % 0.0 - 2.0 % [facility] Eosinophils (Bld) [#/Vol] 0.0 10*3/uL 0.0 - 0.5 10*3/uL [facility] Eosinophils/100 WBC (Bld) 0.0 % Low 1.0 - 6.0 % [facility] Erythrocyte distribution width (RBC) [Ratio] 13.7 % 11.5 - 14.5 % [facility] Hematocrit (Bld) [Volume fraction] 41.8 % 35.0 - 47.0 % [facility] Hemoglobin (Bld) [Mass/Vol] 13.4 g/dL 11.7 - 16.0 g/dL [facility] Interpretation and review of laboratory results Abnormal [facility] Lymphocytes (Bld) [#/Vol] 1.5 10*3/uL 1.0 - 4.3 10*3/uL [facility] Lymphocytes/100 WBC (Bld) 9.1 % Low 20.0 - 40.0 % [facility] MCH (RBC) [Entitic mass] 30.7 pg 26.0 - 34.0 pg [facility] MCHC (RBC) [Mass/Vol] 32.0 % 32.0 - 36.0 % [facility] MCV (RBC) [Entitic vol] 95.9 fL 80.0 - 98.0 fL [facility] Monocytes (Bld) [#/Vol] 0.8 10*3/uL 0.0 - 0.8 10*3/uL [facility] Monocytes/100 WBC (Bld) 5.0 % 2.0 - 10.0 % [facility] Neutrophils (Bld) [#/Vol] 14.3 10*3/uL High 1.8 - 7.0 10*3/uL [facility] Neutrophils/100 WBC (Bld) 85.8 % High 40.0 - 80.0 % [facility] Nucleated RBC/100 WBC (Bld) [Ratio] 0.1 % [facility] Platelet mean volume (Bld) [Entitic vol] 8.1 fL 7.4 - 12.4 fL [facility] Platelets (Bld) [#/Vol] 263 10*3/uL 140 - 440 10*3/uL [facility] RBC (Bld) [#/Vol] 4.36 10*6/uL 3.8 - 5.20 10*6/uL [facility] WBC (Bld) [#/Vol] 16.7 10*3/uL High 3.6 - 10.7 10*3/uL [facility] Laboratory - Chemistry and C hemistry - challengeon 11-07-2022 Potassium [Moles/Vol] 4.3 mmol/L 3.5 - 5.1 mmol/L [facility] Laboratory - Coagulationon 0 11-07-2022 PT Coag (Bld) [Time] 10.6 s 9.0 - 12.0 s [facility] PT Coag (Bld) [Time]on 11-07 INR Coag (PPP) [Relative time] 1.0 {INR} 0.9 - 1.1 [facility] Comment on above: Recommended Anticoag ulant Therapy: [...] Interpretation and review of laboratory results Normal [facility] Potassium [Moles/Vol]on 10-22 Interpretation and review of laboratory results Normal [facility] CBC W Auto Differential pane l (Bld)Ordered By: Stephania Guzman on 11-06-2022 Basophils (Bld) [#/Vol] 0.1 10*3/uL 0.0 - 0.2 10*3/uL [facility] Basophils/100 WBC (Bld) 1.0 % 0.0 - 2.0 % [facility] Eosinophils (Bld) [#/Vol] 0.1 10*3/uL 0.0 - 0.5 10*3/uL [facility] Eosinophils/100 WBC (Bld) 0.7 % Low 1.0 - 6.0 % [facility] Erythrocyte distribution width (RBC) [Ratio] 13.7 % 11.5 - 14.5 % [facility] Hematocrit (Bld) [Volume fraction] 46.2 % 35.0 - 47.0 % [facility] Hemoglobin (Bld) [Mass/Vol] 15.4 g/dL 11.7 - 16.0 g/dL [facility] Interpretation and review of laboratory results Abnormal [facility] Lymphocytes (Bld) [#/Vol] 2.2 10*3/uL 1.0 - 4.3 10*3/uL [facility] Lymphocytes/100 WBC (Bld) 22.6 % 20.0 - 40.0 % [facility] MCH (RBC) [Entitic mass] 30.9 pg 26.0 - 34.0 pg [facility] MCHC (RBC) [Mass/Vol] 33.2 % 32.0 - 36.0 % [facility] MCV (RBC) [Entitic vol] 92.9 fL 80.0 - 98.0 fL [facility] Monocytes (Bld) [#/Vol] 0.5 10*3/uL 0.0 - 0.8 10*3/uL [facility] Monocytes/100 WBC (Bld) 5.1 % 2.0 - 10.0 % [facility] Neutrophils (Bld) [#/Vol] 7.0 10*3/uL 1.8 - 7.0 10*3/uL [facility] Neutrophils/100 WBC (Bld) 70.6 % 40.0 - 80.0 % [facility] Nucleated RBC/100 WBC (Bld) [Ratio] 0.1 % [facility] Platelet mean volume (Bld) [Entitic vol] 7.9 fL 7.4 - 12.4 fL [facility] Platelets (Bld) [#/Vol] 306 10*3/uL 140 - 440 10*3/uL [facility] RBC (Bld) [#/Vol] 4.98 10*6/uL 3.8 - 5.20 10*6/uL [facility] WBC (Bld) [#/Vol] 9.9 10*3/uL 3.6 - 10.7 10*3/uL [facility] No Panel Informationon 11-06 There is no interpretation needed for this exam. IMAGING There is no interpretation needed for this exam. IMAGING ECG 12 leadon 10-30-2022 [facility] XR Chest 2 Viewson No acute process. Report Dictated on Electronically Signed By: Augustine Pelayo Electronically Signed Date/Time: 10/30/2022 11:16 AM EST [facility] [place] [facility] Patient Name: ORTIZ MASON : 1970 Exam Date/Time: 10/30/2022 09:56 Procedure: XR CHEST 2 VIEWS Ordering Provider: LOREDO EUGENE Reason For Exam: cough PA AND LATERAL CHEST CLINICAL INDICATION: Cough TECHNIQUE: PA and Lateral chest COMPARISON: 09/18/2019 FINDINGS: The cardiomediastinal silhouette appears unchanged from the prior exam. The lungs are clear. There is no sizable pleural effusion. Postsurgical changes in the cervical spine. [facility] Augustine Pelayo MD - 10/30/2022 Patient Name: ORTIZ MASON : 1970 Exam Date/Time: 10/30/2022 09:56 Procedure: [...] Electronically Signed Date/Time: 10/30/2022 11:16 AM EST [facility] Radiology Study observation (narrative) [facility] XR Chest 2 ViewsOrdered By: Augustine Pelayo on 10-30-2022 [facility] Work Phone: CBC panel Auto (Bld)on 10-03 Erythrocyte distribution width (RBC) [Ratio] 13.6 % 11.5 - 14.5 % [facility] Hematocrit (Bld) [Volume fraction] 44.7 % 35.0 - 47.0 % [facility] Hemoglobin (Bld) [Mass/Vol] 15.2 g/dL 11.7 - 16.0 g/dL [facility] Interpretation and review of laboratory results Normal [facility] MCH (RBC) [Entitic mass] 31.5 pg 26.0 - 34.0 pg [facility] MCHC (RBC) [Mass/Vol] 34.1 % 32.0 - 36.0 % [facility] MCV (RBC) [Entitic vol] 92.3 fL 80.0 - 98.0 fL [facility] Platelet mean volume (Bld) [Entitic vol] 7.9 fL 7.4 - 12.4 fL [facility] Platelets (Bld) [#/Vol] 331 10*3/uL 140 - 440 10*3/uL [facility] RBC (Bld) [#/Vol] 4.84 10*6/uL 3.8 - 5.20 10*6/uL [facility] WBC (Bld) [#/Vol] 6.4 10*3/uL 3.6 - 10.7 10*3/uL [facility] - Coagulationon 0 10-03-2022 PT Coag (Bld) [Time] 10.0 s 9.0 - 12.0 s [facility] No Panel Informationon 10-03 Successful uncomplicated fluoroscopic [...] Chery Electronically Signed Date/Time: 10/03/2022 2:52 PM [facility] Patient Name: ORTIZ MASON : 1970 Exam Date/Time: 10/03/2022 09:03 Procedure: [...] moderate facet arthrosis. Neural foramina remain patent. [facility] Amelie Chery MD - 10/03/2022 Patient Name: ORTIZ MASON : 1970 Exam Date/Time: 10/03/2022 09:03 Procedure: [...] Electronically Signed Date/Time: 10/03/2022 2:52 PM EST [facility] Radiology Study observation (narrative) [facility] No Panel InformationOrdered By: Amelie Chery on 10-03-2022 [facility] Work Phone: PT Coag (Bld) [Time]on 10-03 INR Coag (PPP) [Relative time] 0.9 {INR} 0.9 - 1.1 [facility] Comment on above: Recommended Anticoag ulant Therapy: [...] Interpretation and review of laboratory results Normal [facility] Absolute lymphocyte countOrd ered By: Dr. Jeffrey on 09-23-2022 Lymphocytes Auto (Unsp spec) [#/Vol] 1.88 10*3/uL 0.83-4.51 [facility] Basophil percentageOrdered B y: Dr. Jeffrey on 09-23-2022 Basophils/100 WBC (Bld) 0.5 % 0-1 [facility] Bilirubin [Mass/Vol] 0.30 mg/dL 0.20-1.00 [facility] Comment on above: For patients on eltr ombopag therapy, use of Dimension [place] TBIL is not recommended. Chloride [Moles/Vol] 108 mmol/L 98-107 [facility] Eosinophils/100 WBC (Bld) 0.5 % 0-5 [facility] Glucose [Mass/Vol] 108 mg/dL 74-106 [facility] Comment on above: Fasting Glucose resu lt from 100 to 125 mg/dL suggests IMPAIRED HOMEOSTASIS per A.D.A. criteria. Neutrophils (Bld) [#/Vol] 7.0 10*3/uL 2.0-7.7 [facility] Neutrophils/100 WBC (Bld) 72.9 % 47-70 [facility] Potassium [Moles/Vol] 4.2 mmol/L 3.5-5.1 [facility] Protein [Mass/Vol] 7.7 g/dL 6.4-8.2 [facility] Sodium [Moles/Vol] 139 mmol/L 136-145 [facility] WBC (Bld) [#/Vol] 9.6 10*3/uL 4.4-11.0 [facility] Blood erythrocytes count (nu mber/volume)Ordered By: Dr. Jeffrey on 09-23-2022 RBC (Bld) [#/Vol] 5.21 10*6/uL 4.2-5.4 [facility] Blood hemoglobin measurement (mass/volume)Ordered By: Dr. Jeffrey on 09-23-2022 Hemoglobin (Bld) [Mass/Vol] 16.0 g/dL 12.0-15.0 [facility] Blood lymphocytes/100 leukoc ytesOrdered By: Dr. Jeffrey on 09-23-2022 Lymphocytes/100 WBC (Bld) 19.6 % 19-41 [facility] Blood monocytes/100 leukocyt esOrdered By: Dr. Jeffrey on 09-23-2022 Monocytes/100 WBC (Bld) 6.1 % 0-10 [facility] Blood platelet mean volumeOr dered By: Dr. Jeffrey on 09-23-2022 Platelet mean volume (Bld) [Entitic vol] 10.0 fL 6.2-12.0 [facility] Determination of erythrocyte mean corpuscular volume (MCV)Ordered By: Dr. Jeffrey on 09-23-2022 MCV (RBC) [Entitic vol] 91.6 fL 81-99 [facility] Direct bilirubinOrdered By: Dr. Jeffrey on 09-23-2022 Bilirubin.direct [Mass/Vol] 0.12 mg/dL 0.00-0.30 [facility] Hematocrit Auto (Bld) [Volum e fraction]Ordered By: Dr. Jeffrey on 09-23-2022 Hematocrit (Bld) [Volume fraction] 47.7 % 37-47 [facility] Laboratory - Chemistry and C hemistry - challengeOrdered By: Dr. Jeffrey on 09-23-2022 ALP [Catalytic activity/Vol] 195 U/L 45-117 [facility] ALT [Catalytic activity/Vol] 25 U/L 13-56 [facility] CO2 [Moles/Vol] 23.0 mmol/L 21.0-32.0 [facility] Globulin (S) [Mass/Vol] 3.7 g/dL 2.2-4.2 [facility] Lipase [Catalytic activity/Vol] 115 U/L 73-393 [facility] Urea nitrogen/Creatinine [Mass ratio] 12.6 mg/mg 10-20 [facility] Laboratory - Hematology and Cell countsOrdered By: Dr. Jeffrey on 09-23-2022 Erythrocyte distribution width (RBC) [Entitic vol] 42.8 fL 35.1-43.9 [facility] Erythrocyte distribution width (RBC) [Ratio] 12.8 % 11.6-14.6 [facility] Immature granulocytes/100 WBC (Bld) 0.400 % 0.0-0.9 [facility] Comment on above: IG% - Immature Granu locytes (promyelocytes, myelocytes and metamyelocytes) > 1% indicates that a LEFT SHIFT is Present. MCH (RBC) [Entitic mass] 30.7 pg 27.0-32.0 [facility] Nucleated RBC/100 WBC (Bld) [Ratio] 0 % 0-5 [facility] MCHC Auto (RBC) [Mass/Vol]Or dered By: Dr. Jeffrey on 09-23-2022 MCHC (RBC) [Mass/Vol] 33.5 g/dL 32-36 [facility] No Panel InformationOrdered By: Dr. Jeffrey on 09-23-2022 Troponin I High Sensitivity < 3 pg/mL 3.0-54.0 [facility] Comment on above: Please Note: New Evelyn t Units and Gender Specific Reference Ranges. For more information see Policy Stat Procedure [place] High Sensitivity Troponin (TNIH) and attachments. Estimated Creatinine Clearance Calc 107.93 ml/min [facility] Estimated GFR (MDRD) Amer 126 mL/min >60 [facility] Comment on above: GFR Calc Estimated GFR (MDRD) Non-Af Amer 104 mL/min >60 [facility] Comment on above: Non- GFR Calc Platelets bldOrdered By: Dr. Jeffrey on 09-23-2022 Platelets (Bld) [#/Vol] 327 10*3/uL 150-450 [facility] Serum or plasma albumin tania urement (mass/volume)Ordered By: Dr. Jeffrey on 09-23-2022 Albumin [Mass/Vol] 4.0 g/dL 3.2-5.0 [facility] Serum or plasma calcium tania urement (mass/volume)Ordered By: Dr. Jeffrey on 09-23-2022 Calcium [Mass/Vol] 9.3 mg/dL 8.5-10.1 [facility] Serum or plasma creatinine m easurement (mass/volume)Ordered By: Dr. Jeffrey on 09-23-2022 Creatinine [Mass/Vol] 0.63 mg/dL 0.55-1.02 [facility] Comment on above: The validity of the calculated GFR & GFRAA in patients over 70 years has not been determined. Clinical correlation is essential. Serum or plasma urea nitroge n measurement (mass/volume)Ordered By: Dr. Jeffrey on 09-23-2022 Urea nitrogen [Mass/Vol] 8 mg/dL 7-18 [facility] Thin prep Papanicolaou smear with manual screeningOrdered By: Dr. Jeffrey on 09-23-2022 Thin prep Papanicolaou smear with manual screening 24 U/L 15-37 [facility] Thin prep Papanicolaou smear with manual screening 8 5-15 [facility] Absolute lymphocyte countOrd ered By: Dr. Chaney on 08-24-2022 Lymphocytes Auto (Unsp spec) [#/Vol] 2.95 10*3/uL 0.83-4.51 [facility] Basophil percentageOrdered B y: Dr. Chaney on 08-24-2022 Basophils/100 WBC (Bld) 0.6 % 0-1 [facility] Bilirubin [Mass/Vol] 0.30 mg/dL 0.20-1.00 [facility] Comment on above: For patients on eltr ombopag therapy, use of Dimension [place] TBIL is not recommended. Chloride [Moles/Vol] 110 mmol/L 98-107 [facility] Eosinophils/100 WBC (Bld) 1.0 % 0-5 [facility] Glucose [Mass/Vol] 99 mg/dL 74-106 [facility] Neutrophils (Bld) [#/Vol] 6.2 10*3/uL 2.0-7.7 [facility] Neutrophils/100 WBC (Bld) 61.6 % 47-70 [facility] Potassium [Moles/Vol] 4.1 mmol/L 3.5-5.1 [facility] Protein [Mass/Vol] 7.6 g/dL 6.4-8.2 [facility] Sodium [Moles/Vol] 141 mmol/L 136-145 [facility] WBC (Bld) [#/Vol] 10.0 10*3/uL 4.4-11.0 [facility] Blood erythrocytes count (nu mber/volume)Ordered By: Dr. Chaney on 08-24-2022 RBC (Bld) [#/Vol] 5.31 10*6/uL 4.2-5.4 [facility] Blood hemoglobin measurement (mass/volume)Ordered By: Dr. Chaney on 08-24-2022 Hemoglobin (Bld) [Mass/Vol] 16.4 g/dL 12.0-15.0 [facility] Blood lymphocytes/100 leukoc ytesOrdered By: Dr. Chaney on 08-24-2022 Lymphocytes/100 WBC (Bld) 29.5 % 19-41 [facility] Blood monocytes/100 leukocyt esOrdered By: Dr. Chaney on 08-24-2022 Monocytes/100 WBC (Bld) 6.8 % 0-10 [facility] Blood platelet mean volumeOr dered By: Dr. Chaney on 08-24-2022 Platelet mean volume (Bld) [Entitic vol] 9.8 fL 6.2-12.0 [facility] Determination of erythrocyte mean corpuscular volume (MCV)Ordered By: Dr. Chaney on 08-24-2022 MCV (RBC) [Entitic vol] 93.2 fL 81-99 [facility] Hematocrit Auto (Bld) [Volum e fraction]Ordered By: Dr. Chaney on 08-24-2022 Hematocrit (Bld) [Volume fraction] 49.5 % 37-47 [facility] Laboratory - Chemistry and C hemistry - challengeOrdered By: Dr. Chaney on 08-24-2022 ALP [Catalytic activity/Vol] 186 U/L 45-117 [facility] ALT [Catalytic activity/Vol] 21 U/L 13-56 [facility] CO2 [Moles/Vol] 24.0 mmol/L 21.0-32.0 [facility] Globulin (S) [Mass/Vol] 3.9 g/dL 2.2-4.2 [facility] Lipase [Catalytic activity/Vol] 164 U/L 73-393 [facility] Urea nitrogen/Creatinine [Mass ratio] 9.4 mg/mg 10-20 [facility] Laboratory - Hematology and Cell countsOrdered By: Dr. Chaney on 08-24-2022 Erythrocyte distribution width (RBC) [Entitic vol] 43.2 fL 35.1-43.9 [facility] Erythrocyte distribution width (RBC) [Ratio] 12.6 % 11.6-14.6 [facility] Immature granulocytes/100 WBC (Bld) 0.500 % 0.0-0.9 [facility] Comment on above: IG% - Immature Granu locytes (promyelocytes, myelocytes and metamyelocytes) > 1% indicates that a LEFT SHIFT is Present. MCH (RBC) [Entitic mass] 30.9 pg 27.0-32.0 [facility] Nucleated RBC/100 WBC (Bld) [Ratio] 0 % 0-5 [facility] MCHC Auto (RBC) [Mass/Vol]Or dered By: Dr. Chaney on 08-24-2022 MCHC (RBC) [Mass/Vol] 33.1 g/dL 32-36 [facility] No Panel InformationOrdered By: Dr. Chaney on 08-24-2022 Troponin I High Sensitivity 4 pg/mL 3.0-54.0 [facility] Comment on above: Please Note: New Evelyn t Units and Gender Specific Reference Ranges. For more information see Policy Stat Procedure [place] High Sensitivity Troponin (TNIH) and attachments. Estimated Creatinine Clearance Calc 106.24 ml/min [facility] Estimated GFR (MDRD) Amer 125 mL/min >60 [facility] Comment on above: GFR Calc Estimated GFR (MDRD) Non-Af Amer 103 mL/min >60 [facility] Comment on above: Non- GFR Calc Platelets bldOrdered By: Dr. Chaney on 08-24-2022 Platelets (Bld) [#/Vol] 442 10*3/uL 150-450 [facility] Serum or plasma albumin tania urement (mass/volume)Ordered By: Dr. Chaney on 08-24-2022 Albumin [Mass/Vol] 3.7 g/dL 3.2-5.0 [facility] Serum or plasma albumin/glob ulin mass ratioOrdered By: Dr. Chaney on 08-24-2022 Albumin/Globulin [Mass ratio] 0.9 {ratio} 0.9-2.4 [facility] Serum or plasma calcium tania urement (mass/volume)Ordered By: Dr. Chaney on 08-24-2022 Calcium [Mass/Vol] 8.8 mg/dL 8.5-10.1 [facility] Serum or plasma creatinine m easurement (mass/volume)Ordered By: Dr. Chaney on 08-24-2022 Creatinine [Mass/Vol] 0.64 mg/dL 0.55-1.02 [facility] Comment on above: The validity of the calculated GFR & GFRAA in patients over 70 years has not been determined. Clinical correlation is essential. Serum or plasma urea nitroge n measurement (mass/volume)Ordered By: Dr. Chaney on 08-24-2022 Urea nitrogen [Mass/Vol] 6 mg/dL 7-18 [facility] Thin prep Papanicolaou smear with manual screeningOrdered By: Dr. Chaney on 08-24-2022 Thin prep Papanicolaou smear with manual screening 18 U/L 15-37 [facility] Thin prep Papanicolaou smear with manual screening 7 5-15 [facility] Absolute lymphocyte countOrd ered By: Dr. Parkinson on 08-20-2022 Lymphocytes Auto (Unsp spec) [#/Vol] 3.73 10*3/uL 0.83-4.51 [facility] Basophil percentageOrdered B y: Dr. Parkinson on 08-20-2022 Basophils/100 WBC (Bld) 0.5 % 0-1 [facility] Chloride [Moles/Vol] 110 mmol/L 98-107 [facility] Eosinophils/100 WBC (Bld) 1.3 % 0-5 [facility] Glucose [Mass/Vol] 99 mg/dL 74-106 [facility] Neutrophils (Bld) [#/Vol] 5.5 10*3/uL 2.0-7.7 [facility] Neutrophils/100 WBC (Bld) 54.3 % 47-70 [facility] Potassium [Moles/Vol] 3.7 mmol/L 3.5-5.1 [facility] Sodium [Moles/Vol] 143 mmol/L 136-145 [facility] WBC (Bld) [#/Vol] 10.0 10*3/uL 4.4-11.0 [facility] Blood erythrocytes count (nu mber/volume)Ordered By: Dr. Parkinson on 08-20-2022 RBC (Bld) [#/Vol] 4.75 10*6/uL 4.2-5.4 [facility] Blood hemoglobin measurement (mass/volume)Ordered By: Dr. Parkinson on 08-20-2022 Hemoglobin (Bld) [Mass/Vol] 14.9 g/dL 12.0-15.0 [facility] Blood lymphocytes/100 leukoc ytesOrdered By: Dr. Parkisnon on 08-20-2022 Lymphocytes/100 WBC (Bld) 37.2 % 19-41 [facility] Blood monocytes/100 leukocyt esOrdered By: Dr. Parkinson on 08-20-2022 Monocytes/100 WBC (Bld) 6.3 % 0-10 [facility] Blood platelet mean volumeOr dered By: Dr. Parkinson on 08-20-2022 Platelet mean volume (Bld) [Entitic vol] 9.6 fL 6.2-12.0 [facility] COVID-19 virus antigen assay Ordered By: Dr. Parkinson on 08-20-2022 SARS-CoV-2 (COVID-19) Ag IA.rapid Ql (Resp) [facility] Determination of erythrocyte mean corpuscular volume (MCV)Ordered By: Dr. Parkinson on 08-20-2022 MCV (RBC) [Entitic vol] 92.0 fL 81-99 [facility] Hematocrit Auto (Bld) [Volum e fraction]Ordered By: Dr. Parkinson on 08-20-2022 Hematocrit (Bld) [Volume fraction] 43.7 % 37-47 [facility] Laboratory - Chemistry and C hemistry - challengeOrdered By: Dr. Parkinson on 08-20-2022 CO2 [Moles/Vol] 28.0 mmol/L 21.0-32.0 [facility] Urea nitrogen/Creatinine [Mass ratio] 11.6 mg/mg 10-20 [facility] Laboratory - Hematology and Cell countsOrdered By: Dr. Parkinson on 08-20-2022 Erythrocyte distribution width (RBC) [Entitic vol] 41.9 fL 35.1-43.9 [facility] Erythrocyte distribution width (RBC) [Ratio] 12.4 % 11.6-14.6 [facility] Immature granulocytes/100 WBC (Bld) 0.400 % 0.0-0.9 [facility] Comment on above: IG% - Immature Granu locytes (promyelocytes, myelocytes and metamyelocytes) > 1% indicates that a LEFT SHIFT is Present. MCH (RBC) [Entitic mass] 31.4 pg 27.0-32.0 [facility] Nucleated RBC/100 WBC (Bld) [Ratio] 0 % 0-5 [facility] MCHC Auto (RBC) [Mass/Vol]Or dered By: Dr. Parkinson on 08-20-2022 MCHC (RBC) [Mass/Vol] 34.1 g/dL 32-36 [facility] No Panel InformationOrdered By: Dr. Parkinson on 08-20-2022 Estimated Creatinine Clearance Calc 98.54 ml/min [facility] Estimated GFR (MDRD) Amer 114 mL/min >60 [facility] Comment on above: GFR Calc Estimated GFR (MDRD) Non-Af Amer 94 mL/min >60 [facility] Comment on above: Non- GFR Calc Platelets bldOrdered By: Dr. Parkinson on 08-20-2022 Platelets (Bld) [#/Vol] 389 10*3/uL 150-450 [facility] Serum or plasma calcium tania urement (mass/volume)Ordered By: Dr. Parkinson on 08-20-2022 Calcium [Mass/Vol] 9.0 mg/dL 8.5-10.1 [facility] Serum or plasma creatinine m easurement (mass/volume)Ordered By: Dr. Parkinson on 08-20-2022 Creatinine [Mass/Vol] 0.69 mg/dL 0.55-1.02 [facility] Comment on above: The validity of the calculated GFR & GFRAA in patients over 70 years has not been determined. Clinical correlation is essential. Serum or plasma urea nitroge n measurement (mass/volume)Ordered By: Dr. Parkinson on 08-20-2022 Urea nitrogen [Mass/Vol] 8 mg/dL 7-18 [facility] Thin prep Papanicolaou smear with manual screeningOrdered By: Dr. Parkinson on 08-20-2022 Thin prep Papanicolaou smear with manual screening 5 5-15 [facility] Laboratory - Drug toxicology on 04-02-2022 Amphetamines Ql (U) Negative <1000 ng/mL [facility] Work Phone: [phone] Benzodiazepines Ql (U) Negative < 200 ng/mL [facility] Work Phone: [phone] Cannabinoids Screen Ql (U) Negative < 50 ng/mL [facility] Work Phone: [phone] Cocaine Ql (U) Negative < 300 ng/mL [facility] Work Phone: [phone] Opiates Ql (U) Negative < 300 ng/mL [facility] Work Phone: No Panel Informationon 04-02 MDMA (Ecstasy) Screen Negative < 500 ng/mL [facility] Work Phone: Miscellaneous Test See comment [facility] Work Phone: Comment on above: [id number] 6+OXYCODONE-B UND (ng/mL) DRUG RESULT SCREEN CUTOFF____ Amphetamines,Urine Negative ng/mL 1000 Amphetamine test includes Amphetamine and Methamphetamine.Barbiturates Negative ng/mL 200Benzodiazepines Negative ng/mL 200Cannabinoid Negative ng/mL 20Cocaine (Metab) Negative ng/mL 300Opiates Negative ng/mL 300 Opiates test includes Codeine, Morphine, Hydromorphone, Hydrocodone. Oxycodone/Oxymorphone,Urine Negative ng/mL 300 Test includes Oxydodone and Oxymorphone. TESTING PERFORMED AT [facility]. ORIGINAL REPORT ON FILE IN LAB CONTAINS ADDITIONAL TEST SITE INFORMATION. Urine Barbiturates Screen Negative < 200 ng/mL [facility] Work Phone: Urine Drug Screen Comment [facility] Work Phone: Comment on above: CONFIRMATORY [...] Methadone Screen Negative < 300 ng/mL [facility] Work Phone: Urine phencyclidine (PCP) de tectionon 04-02-2022 Phencyclidine Ql (U) Negative < 25 ng/mL [facility] Work Phone: Absolute lymphocyte counton 01-27-2022 Lymphocytes Auto (Unsp spec) [#/Vol] 2.86 10*3/uL 0.83-4.51 [facility] Work Phone: Basophil percentageon 2021 Lactate [Moles/Vol] 1.6 mmol/L 0.4-2.0 [facility] Work Phone: Basophils/100 WBC (Bld) 0.7 % 0-1 [facility] Work Phone: [phone] Eosinophils/100 WBC (Bld) 1.0 % 0-5 [facility] Work Phone: Neutrophils (Bld) [#/Vol] 5.0 10*3/uL 2.0-7.7 [facility] Work Phone: Neutrophils/100 WBC (Bld) 57.6 % 47-70 [facility] Work Phone: WBC (Bld) [#/Vol] 8.7 10*3/uL 4.4-11.0 [facility] Work Phone: Bilirubin [Mass/Vol] 0.10 mg/dL 0.20-1.00 [facility] Work Phone: Comment on above: For patients on eltr ombopag therapy, use of [employer]ension [place] TBIL is not recommended. Chloride [Moles/Vol] 108 mmol/L 98-107 [facility] Work Phone: Glucose [Mass/Vol] 86 mg/dL 74-106 [facility] Work Phone: Potassium [Moles/Vol] 3.4 mmol/L 3.5-5.1 [facility] Work Phone: Protein [Mass/Vol] 6.9 g/dL 6.4-8.2 [facility] Work Phone: Sodium [Moles/Vol] 140 mmol/L 136-145 [facility] Work Phone: Blood erythrocytes count (nu mber/volume)on 01-27-2022 RBC (Bld) [#/Vol] 4.54 10*6/uL 4.2-5.4 [facility] Work Phone: Blood hemoglobin measurement (mass/volume)on 01-27-2022 Hemoglobin (Bld) [Mass/Vol] 14.2 g/dL 12.0-15.0 [facility] Work Phone: Blood lymphocytes/100 leukoc yteson 01-27-2022 Lymphocytes/100 WBC (Bld) 32.8 % 19-41 [facility] Work Phone: Blood manual differential co mment interpretation (narrative result)on 01-27-2022 Manual differential comment Albert (Bld) [Interp] SEE COMMENT [facility] Work Phone: Blood monocytes/100 leukocyt eson 01-27-2022 Monocytes/100 WBC (Bld) 6.8 % 0-10 [facility] Work Phone: Blood platelet adequacy dete ction by light microscopyon 01-27-2022 Platelets LM Ql (Bld) ADEQUATE ADEQ [facility] Work Phone: Blood platelet mean volumeon 01-27-2022 Platelet mean volume (Bld) [Entitic vol] 9.7 fL 6.2-12.0 [facility] Work Phone: [phone] Determination of erythrocyte mean corpuscular volume (MCV)on 01-27-2022 MCV (RBC) [Entitic vol] 96.3 fL 81-99 [facility] Work Phone: [phone] Hematocrit Auto (Bld) [Volum e fraction]on 01-27-2022 Hematocrit (Bld) [Volume fraction] 43.7 % 37-47 [facility] Work Phone: [phone] Laboratory - Chemistry and C hemistry - challengeon 01-27-2022 ALP [Catalytic activity/Vol] 133 U/L 45-117 [facility] Work Phone: ALT [Catalytic activity/Vol] 20 U/L 13-56 [facility] Work Phone: CO2 [Moles/Vol] 25.0 mmol/L 21.0-32.0 [facility] Work Phone: Globulin (S) [Mass/Vol] 3.9 g/dL 2.2-4.2 [facility] Work Phone: Urea nitrogen/Creatinine [Mass ratio] 10.4 mg/mg 10-20 [facility] Work Phone: Laboratory - Hematology and Cell countson 01-27-2022 Anisocytosis Ql (Bld) 1+ [facility] Work Phone: Erythrocyte distribution width (RBC) [Entitic vol] 43.8 fL 35.1-43.9 [facility] Work Phone: [phone] Erythrocyte distribution width (RBC) [Ratio] 12.4 % 11.6-14.6 [facility] Work Phone: Immature granulocytes/100 WBC (Bld) 1.100 % 0.0-0.9 [facility] Work Phone: [phone] Comment on above: IG% - Immature Granu locytes (promyelocytes, myelocytes and metamyelocytes) > 1% indicates that a LEFT SHIFT is Present. MCH (RBC) [Entitic mass] 31.3 pg 27.0-32.0 [facility] Work Phone: Nucleated RBC/100 WBC (Bld) [Ratio] 0 % 0-5 [facility] Work Phone: [phone] MCHC Auto (RBC) [Mass/Vol]on 01-27-2022 MCHC (RBC) [Mass/Vol] 32.5 g/dL 32-36 [facility] Work Phone: Macrocytes detectionon 01-27 Macrocytes Ql (Bld) 1+ [facility]: No Panel Informationon 01-27 Atypical Lymphocytes 1+ % [facility] Work Phone: Estimated Creatinine Clearance Calc 141.65 ml/min [facility] Work Phone: [phone] Estimated GFR (MDRD) Amer 174 mL/min >60 [facility] Work Phone: Comment on above: GFR Calc Estimated GFR (MDRD) Non-Af Amer 144 mL/min >60 [facility] Work Phone: Comment on above: Non- GFR Calc Platelets bldon 01-27-2022 Platelets (Bld) [#/Vol] 400 10*3/uL 150-450 [facility] Work Phone: RBC morphologyon 01-27-2022 RBC morphology finding Nom (Bld) N CHROM NORMAL NORM C&C [facility] Work Phone: Serum or plasma albumin tania urement (mass/volume)on 01-27-2022 Albumin [Mass/Vol] 3.0 g/dL 3.2-5.0 [facility] Work Phone: Serum or plasma albumin/glob ulin mass ratioon 01-27-2022 Albumin/Globulin [Mass ratio] 0.8 {ratio} 0.9-2.4 [facility] Work Phone: Serum or plasma calcium tania urement (mass/volume)on 01-27-2022 Calcium [Mass/Vol] 8.8 mg/dL 8.5-10.1 [facility] Work Phone: Serum or plasma creatinine m easurement (mass/volume)on 01-27-2022 Creatinine [Mass/Vol] 0.48 mg/dL 0.55-1.02 [facility] Work Phone: Comment on above: The validity of the calculated GFR & GFRAA in patients over 70 years has not been determined. Clinical correlation is essential. Serum or plasma urea nitroge n measurement (mass/volume)on 01-27-2022 Urea nitrogen [Mass/Vol] 5 mg/dL 7-18 [facility] Work Phone: Thin prep Papanicolaou smear with manual screeningon 01-27-2022 Thin prep Papanicolaou smear with manual screening 20 U/L 15-37 [facility] Work Phone: Thin prep Papanicolaou smear with manual screening 7 5-15 [facility] Work Phone: Basic Metabolic Panelon 04-25 Calcium [Mass/Vol] 8.5 mg/dL Normal 8.4-10.4 [facility] Comment on above: Performed By: #### C UA2 #### [facility] [place] [address] Glucose [Mass/Vol] 79 mg/dL Normal 70-100 [facility] Comment on above: Performed By: #### C UA2 #### [facility] [place] Anion gap [Moles/Vol] 6 Normal [facility] Comment on above: Performed By: #### C UA2 #### [address] CO2 [Moles/Vol] 25 mmol/L Normal 22-30 [facility] Comment on above: Performed By: #### C UA2 #### [address] Creatinine [Mass/Vol] 0.61 mg/dL Normal 0.52-1.25 [facility] Comment on above: Performed By: #### C UA2 #### [address] GFR/1.73 sq M predicted among blacks MDRD (S/P/Bld) [Vol rate/Area] mL/min/{1.73_m2} Normal >60 [facility] Comment on above: Performed By: #### C UA2 #### [address] GFR/1.73 sq M predicted among non-blacks MDRD (S/P/Bld) [Vol rate/Area] mL/min/{1.73_m2} Normal >60 [facility] Comment on above: Result Comment: KDIG [...] secretion. Performed By: #### C UA2 #### [facility] [address], [place] Urea nitrogen [Mass/Vol] 5 mg/dL Low 7-20 [facility] Comment on above: Performed By: #### C UA2 #### [facility] [address], [place] Potassium [Moles/Vol] 3.6 mmol/L Normal 3.5-5.1 [facility] Comment on above: Performed By: #### C UA2 #### [facility] [address], [place] Chloride [Moles/Vol] 108 mmol/L High 98-107 [facility] Comment on above: Performed By: #### C UA2 #### [facility] [address], [place] Sodium [Moles/Vol] 139 mmol/L Normal 135-145 [facility] Comment on above: Performed By: #### C UA2 #### [facility] [address], [place] Basic Metabolic Panel w/ Ref hailey to MGon 05-15-2020 Anion gap [Moles/Vol] 6 mmol/L [place], [place] Calcium [Mass/Vol] 8.5 mg/dL 8.4 - 10. 4 mg/dL [place] Chloride [Moles/Vol] 108 mmol/L High 98 - 10 7 mmol/L [place] CO2 [Moles/Vol] 25 mmol/L 22 - 30 mmol/L [place] Creatinine [Mass/Vol] 0.61 mg/dL 0.52 - 1.25 mg/dL [place] EGFR IF NonAfrican [place]inean >90.0 >60 mL/min [place] Comment on above: KDIGO guidelines pro [...] MDRD (S/P/Bld) [Vol rate/Area] mL/min/{1.73_m2} >60 mL/min [place] Glucose [Mass/Vol] 79 mg/dL 70 - 100 mg/dL [place] Interpretation and review of laboratory results Abnormal [place] Potassium [Moles/Vol] 3.6 mmol/L 3.5 - 5.1 mmol/L [place] Sodium [Moles/Vol] 139 mmol/L 135 - 145 mmol/L [place] Urea nitrogen [Mass/Vol] 5 mg/dL Low 7 - 20 mg/dL [place] Test Performed by [facility], [address] [place] [id number] [place], [place] CBCon 05-15-2020 Erythrocyte distribution width (RBC) [Ratio] 13.0 % 11.5 - 14.5 % [place] Hematocrit (Bld) [Volume fraction] 38.4 % 35 - 47 % [place] Hemoglobin (Bld) [Mass/Vol] 12.9 g/dL 11.7 - 16 g/dL [place] MCH (RBC) [Entitic mass] 32.7 pg 26 - 34 pg [place] MCHC (RBC) [Mass/Vol] 33.6 % 32 - 36 % [place] MCV (RBC) [Entitic vol] 97.6 fL 79 - 98 fL [place] Platelet mean volume (Bld) [Entitic vol] 8.7 fL 7.4 - 10.4 fL [place] Platelets (Bld) [#/Vol] 275 10*3/uL 140 - 440 10*3/uL [place] RBC (Bld) [#/Vol] 3.94 10*6/uL 3.8 - 5.2 10*6/uL [place] WBC (Bld) [#/Vol] 5.9 10*3/uL 3.6 - 10.7 10*3/uL [place] Test Performed by [facility], [address] [place] [address] [place], [place] Hemogramon 05-15-2020 Erythrocyte distribution width (RBC) [Ratio] 13.0 % Normal 11.5-14.5 [facility] Comment on above: Performed By: #### C UA2 #### [address] Hematocrit (Bld) [Volume fraction] 38.4 % Normal 35.0-47.0 [facility] Comment on above: Performed By: #### C UA2 #### [place] [address] [place], [place] Hemoglobin (Bld) [Mass/Vol] 12.9 g/dL Normal 11.7-16.0 [facility] Comment on above: Performed By: #### C UA2 #### [address] MCH (RBC) [Entitic mass] 32.7 pg Normal 26.0-34.0 [facility] Comment on above: Performed By: #### C UA2 #### [place] [address] [place] MCHC (RBC) [Mass/Vol] 33.6 % Normal 32.0-36.0 [facility] Comment on above: Performed By: #### C UA2 #### [address] MCV (RBC) [Entitic vol] 97.6 fL Normal 79.0-98.0 [facility] Comment on above: Performed By: #### C UA2 #### [address] Platelet mean volume (Bld) [Entitic vol] 8.7 fL Normal 7.4-10.4 [facility] Comment on above: Performed By: #### C UA2 #### [address] [place] [address] [address] [place], [place] Platelets (Bld) [#/Vol] 275 10*3/uL Normal 140-440 [facility] Comment on above: Performed By: #### C UA2 #### [address] [place] [address] [address] [place], [place] RBC (Bld) [#/Vol] 3.94 10*6/uL Normal 3.80-5.20 [facility] Comment on above: Performed By: #### C UA2 #### [address] [place] [address] [address] [place], [place] WBC (Bld) [#/Vol] 5.9 10*3/uL Normal 3.6-10.7 [facility] Comment on above: Performed By: #### C UA2 #### [address] [place] [address] [address] [place], [place] Basic Metabolic Panelon 09- Calcium [Mass/Vol] 9.0 mg/dL Normal 8.4-10.4 [facility] Comment on above: Performed By: #### H RUPESH BMP3 #### [address] [place] [address] [address] [place], [place] Glucose [Mass/Vol] 132 mg/dL High 70-100 [facility] Comment on above: Performed By: #### H RUPESH BMP3 #### [address] [place] [address] [address] [place], [place] Urea nitrogen [Mass/Vol] 10 mg/dL Normal 7-20 [facility] Comment on above: Performed By: #### H RUPESH BMP3 #### [address] [place] [address] [address] [place], [place] Anion gap [Moles/Vol] 12 Normal [facility] Comment on above: Performed By: #### H RUPESH BMP3 #### [address] [place] [address] [address] [place], [place] CO2 [Moles/Vol] 16 mmol/L Low 22-30 [facility] Comment on above: Performed By: #### H RUPESH BMP3 #### [facility] [address], [place] Creatinine [Mass/Vol] 0.58 mg/dL Normal 0.52-1.25 [facility] Comment on above: Performed By: #### H RUPESH BMP3 #### [facility] [address], [place] GFR/1.73 sq M predicted among blacks MDRD (S/P/Bld) [Vol rate/Area] mL/min/{1.73_m2} Normal >60 [facility] Comment on above: Performed By: #### H RUPESH BMP3 #### [address] [place] [address] [place] GFR/1.73 sq M predicted among non-blacks MDRD (S/P/Bld) [Vol rate/Area] mL/min/{1.73_m2} Normal >60 [facility] Comment on above: Result Comment: KDIG [...] tubular creatinine secretion. Performed By: #### H RUPESH BMP3 #### [facility] [address], [place] Chloride [Moles/Vol] 109 mmol/L High 98-107 [facility] Comment on above: Performed By: #### H RUPESH BMP3 #### [place] [address] [address] [place], [place] Potassium [Moles/Vol] 4.3 mmol/L Normal 3.5-5.1 [facility] Comment on above: Performed By: #### H FABIANO GODDARD #### [facility] [address], [place] Sodium [Moles/Vol] 137 mmol/L Normal 135-145 [facility] Comment on above: Performed By: #### H FABIANO GODDARD #### [facility] [address], [place] Basic Metabolic Panel w/ Ref hailey to MGon 05-14-2020 Anion gap [Moles/Vol] 12 mmol/L [place], [place] Calcium [Mass/Vol] 9.0 mg/dL 8.4 - 10. 4 mg/dL [place] Chloride [Moles/Vol] 109 mmol/L High 98 - 10 7 mmol/L [place] CO2 [Moles/Vol] 16 mmol/L Low 22 - 30 mmol/L [place] Creatinine [Mass/Vol] 0.58 mg/dL 0.52 - 1.25 mg/dL [place] EGFR IF NonAfrican [place]ine[place] >90.0 >60 mL/min [place] Comment on above: KDIGO guidelines pro [...] MDRD (S/P/Bld) [Vol rate/Area] mL/min/{1.73_m2} >60 mL/min [place] Glucose [Mass/Vol] 132 mg/dL High 70 - 100 mg/dL [place] Interpretation and review of laboratory results Abnormal [place] Potassium [Moles/Vol] 4.3 mmol/L 3.5 - 5.1 mmol/L [place] Sodium [Moles/Vol] 137 mmol/L 135 - 145 mmol/L [place] Urea nitrogen [Mass/Vol] 10 mg/dL 7 - 20 mg/dL [place] Test Performed by [facility] [place] [address] [place], [place] CBCon 05-14-2020 Erythrocyte distribution width (RBC) [Ratio] 12.9 % 11.5 - 14.5 % [place] Hematocrit (Bld) [Volume fraction] 43.8 % 35 - 47 % [place] Hemoglobin (Bld) [Mass/Vol] 14.6 g/dL 11.7 - 16 g/dL [place] MCH (RBC) [Entitic mass] 32.5 pg 26 - 34 pg [place] MCHC (RBC) [Mass/Vol] 33.4 % 32 - 36 % [place] MCV (RBC) [Entitic vol] 97.4 fL 79 - 98 fL [place] Platelet mean volume (Bld) [Entitic vol] 8.7 fL 7.4 - 10.4 fL [place] Platelets (Bld) [#/Vol] 314 10*3/uL 140 - 440 10*3/uL [place] RBC (Bld) [#/Vol] 4.50 10*6/uL 3.8 - 5.2 10*6/uL [place] WBC (Bld) [#/Vol] 7.8 10*3/uL 3.6 - 10.7 10*3/uL [place] Test Performed by [facility] [place] [address] [place], [place] Complete Urinalysison 2019 Appearance (U) Clear Normal Clear [facility] Comment on above: Result Comment: . Performed By: #### H EMDF, BMP3 #### [address] [place] [address] [address] [place], [place] Bilirubin,Urine Negative Normal Negative [facility] Comment on above: Result Comment: . Performed By: #### H EMDF, BMP3 #### [address] [place] [address] [address] [place], [place] Color (U) Light-Yellow Normal Lt. Yellow [facility] Comment on above: Result Comment: . Performed By: #### H EMDF, BMP3 #### [address] [place] [address] [address] [place], [place] Glucose Ql (U) Normal Normal Normal (<70) [facility] Comment on above: Result Comment: . Performed By: #### H EMDF, BMP3 #### [address] [place] [address] [address] [place], [place] Ketone,Urine Negative Normal Negative [facility] Comment on above: Result Comment: . Performed By: #### H EMDF, BMP3 #### [address] [place] [address] [place], [place] Leukocytes,Urine Negative Normal Negative [facility] Comment on above: Result Comment: . Performed By: #### H EMDF, BMP3 #### [address] [place] [address] [address] [place], [place] Mucous Threads Few Normal Negative [facility] Comment on above: Result Comment: . Performed By: #### H EMDF, BMP3 #### [address] [place] [address] [address] [place], [place] Nitrites,Urine Negative Normal Negative [facility] Comment on above: Result Comment: . Performed By: #### H EMDF, BMP3 #### [address] [place] [address] [place] Occult Blood,Urine 0.06 mg/dL Abnormal Negative [facility] Comment on above: Result Comment: . Performed By: #### H EMDF, BMP3 #### [address] [place] [address] [address] [place], [place] pH (U) 6.0 Normal 5.0-8.0 [facility] Comment on above: Result Comment: . Performed By: #### Krystyna GODDARD BMP3 #### [address] [place] [address] [address] [place], [place] Protein (U) [Mass/Vol] Negative Normal Negative [facility] Comment on above: Result Comment: . Performed By: #### Krystyna GODDARD BMP3 #### [address] [place] [address] [address] [place], [place] RBC LM.HPF (Urine sed) [#/Area] 3 - 5 Abnormal 0-2 [facility] Comment on above: Result Comment: . Performed By: #### Krystyna GODDARD BMP3 #### [address] [place] [address] [address] [place], [place] Specific [place],Urine > 1.030 Abnormal 1.005 - 1.030 [facility] Comment on above: Result Comment: . Performed By: #### Krystyna GODDARD BMP3 #### [address] [place] [address] [address] [place], [place] Squamous Epithelial 3 - 5 Normal 3-5 [facility] Comment on above: Result Comment: . Performed By: #### Krystyna GODDARD BMP3 #### [address] [place] [address] [address] [place], [place] Urobilinogen,Urine Normal Normal Normal (0-1) [facility] Comment on above: Result Comment: . Performed By: #### Krystyna GODDARD BMP3 #### [address] [place] [address] [address] [place], [place] WBC LM.HPF (Urine sed) [#/Area] 0 - 2 Normal 0-5 [facility] Comment on above: Result Comment: . Performed By: #### Krystyna GODDARD BMP3 #### [address] [place] [address] [place] Hemogramon 05-14-2020 Erythrocyte distribution width (RBC) [Ratio] 12.9 % Normal 11.5-14.5 [facility] Comment on above: Performed By: #### Krystyna GODDARD BMP3 #### [address] [place] [address] [address] [place], [place] Hematocrit (Bld) [Volume fraction] 43.8 % Normal 35.0-47.0 [facility] Comment on above: Performed By: #### H EMDEdwin, BMP3 #### [facility] [address], [place] Hemoglobin (Bld) [Mass/Vol] 14.6 g/dL Normal 11.7-16.0 [facility] Comment on above: Performed By: #### H EMDEdwin, BMP3 #### [address] [place] [address] [address] [place], [place] MCH (RBC) [Entitic mass] 32.5 pg Normal 26.0-34.0 [facility] Comment on above: Performed By: #### H EMDF, BMP3 #### [address] [place] [address] [address] [place] MCHC (RBC) [Mass/Vol] 33.4 % Normal 32.0-36.0 [facility] Comment on above: Performed By: #### H EMDF, BMP3 #### [address] [place] [address] [address] [place] MCV (RBC) [Entitic vol] 97.4 fL Normal 79.0-98.0 [facility] Comment on above: Performed By: #### H EMDF, BMP3 #### [address] [place] [address] [address] [place] Platelet mean volume (Bld) [Entitic vol] 8.7 fL Normal 7.4-10.4 [facility] Comment on above: Performed By: #### H EMDF, BMP3 #### [address] [place] [address] [address] [place], [place] Platelets (Bld) [#/Vol] 314 10*3/uL Normal 140-440 [facility] Comment on above: Performed By: #### H EMDF, BMP3 #### [address] [place] [address] [address] [place], [place] RBC (Bld) [#/Vol] 4.50 10*6/uL Normal 3.80-5.20 [facility] Comment on above: Performed By: #### H EMDF, BMP3 #### [facility] [address], [place] WBC (Bld) [#/Vol] 7.8 10*3/uL Normal 3.6-10.7 [facility] Comment on above: Performed By: #### H EMDF, BMP3 #### [facility] [address], [place] TS GELon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 01/08/202032 - aspirin 81 mg chewable tab(s) 81 mg ORAL/FEEDING TUBE DAILY Kelly (Res) Oannabellaaku, DO - insulin lispro pen (rapid acting) (HumaLOG KWIKPEN) SUBCUTANEOUS w MEALS AND HS Kelly (Res) Oannabellaaku, DO - melatonin 6 mg tab(s) 6 mg ORAL HS PRN Leandra (Alcohol Law Enforcement Agent) LAM [place].HOOP BENDER TANK 6 mg at 01/08/202121 - enoxaparin 40 mg injection (LOVENOX) 40 mg SUBCUTANEOUS q 24 HR Kelly (Res) Ojiaku, DO 40 mg at 01/08/20 0800 - prochlorperazine 10 mg injection (COMPAZINE) 10 mg INTRAVENOUS q 6 H PRN Kelly (Res) Ojiaku, DO 10 mg at 01/08/202032 - dexamethasone sodium phosphate 4 mg injection [...] 0340 - sodium chloride 0.65 % 2 Hixson (AYR, OCEAN) 2 Hixson EACH NOSTRIL PRN Kelly (Res) Ojiaku, DO [...] propionate (FLONASE ALLERGY RELIEF NASAL), Use 1 Hixson in the nose twice daily. 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 Robledo in [place] after discharge Theron Worthington M.D. [facility] PT EDon 01-09-2020 PT ED HNO ID: [id number] Author: Whitney Bonilla (Pharmacist) Service: Pharmacy Author Type: Pharmacist Type: Patient Education Filed: 01/09/2020 3:46 PM Note Text: DISCHARGE MEDICATION REVIEW AND COUNSELING BY PHARMACY Patient Name: Ortiz Mason Account #: Data Unavailable Admission Date: 01/03/2020 [...] warrant a call to the physician. WHITNEY BONILLA, PHARMACIST January 09, 2020 3:46 PM Medication [...] Your Medications These medications were sent to [facility] [address] [place] [id number] - [address] [place] [address] - [phone] [place] [address] ? dexamethasone 4 mg tablet ? lidocaine 5 % ? traMADol 50 mg tablet Normal [facility] THERAPY NTon 01-09-2020 THERAPY NT HNO ID: [id number] Author: Cely CerratoOtr/Ruddy eDe Service: Occupational Therapy Author Type: Occupational Therapist Type: Therapy (PT/OT/Speech/Resp) Filed: 01/09/2020 4:02 PM Note Text: OCCUPATIONAL THERAPY MISSED VISIT SERVICE DATE: 01/09/2020 SERVICE TIME: 1559 to 1559 ROOM: [place] [address] Attempted Evaluation. Patient not seen due to [...] off. SIGNATURE: ENEDELIA Sebastian/Adam PATIENT NAME: Ortiz Mason DATE: January 09, 2020 TIME: 4:00 PM Normal [facility] THERAPY NT HNO ID: [id number] Author: Alona Troy Service: Physical Therapy Author Type: Physical Therapist Type: Therapy (PT/OT/Speech/Resp) Filed: 01/09/2020 1:51 PM Note Text: Physical Therapy Evaluation SERVICE DATE: 01/09/2020 SERVICE TIME: 1315 to 1338 ROOM: [place] [address] Recommended Discharge Disposition: Home Recommended Discharge Equipment: [...] moving, but will be going home to house. This patient is below baseline functioning of [...] symptoms and signs-other Interventions Provided: Evaluation;Therapeutic Exercise (95396);Gait Training (25660) $ Evaluation-Moderate (47329) Billed Units: 1 unit Therapeutic Exercise (29548) Treatment Minutes: 3 0 units Skilled Intervention(s): Instruction in therapeutic exercise for stretching the left calf when it spasms, educated on use of a belt to pull foot into DF and to use a tennis ball to massage the calf. Both to assist with relieving the pain of cramping. Gait Training (07607) Treatment Minutes: 6 1 unit Skilled Intervention(s): [...] SIGNATURE: Alona Troy PT PATIENT NAME: Ortiz Mason DATE: January 09, 2020 TIME: 1:44 PM Normal [facility] Basic Metabolic Panelon 12-22 Anion gap [Moles/Vol] 12 mmol/L [facility] Comment on above: Performed By: #### M AG #### [place] [address] Calcium [Mass/Vol] 8.1 mg/dL Low 8.5-10.2 [facility] Comment on above: Performed By: #### M AG #### [facility] [address] [place], [place] [address] Chloride [Moles/Vol] 103 mmol/L Normal 97-105 [facility] Comment on above: Performed By: #### M AG #### [facility] [address] [place], [place] [address] CO2 Blood 23 mmol/L Normal 22-30 [facility] Comment on above: Performed By: #### M AG #### [facility] [address] [place], [place] [address] Creatinine [Mass/Vol] 0.63 mg/dL Normal 0.58-0.96 [facility] Comment on above: Performed By: #### M AG #### [facility] [address] [place], [place] [address] Glucose [Mass/Vol] 103 mg/dL High 74-99 [facility] Comment on above: Result Comment: The [place] [employer] Association (ADA) provides guidance for cutoff [...] Standards of Medical Care in Diabetes 2016; [place] [employer]. Diabetes Care. 2016;39(Suppl 1). Performed By: #### M AG #### [facility] [address] [place], [place] [address] Potassium [Moles/Vol] 4.3 mmol/L Normal 3.7-5.1 [facility] Comment on above: Performed By: #### M AG #### [facility] [address] [place], [place] [address] Sodium [Moles/Vol] 138 mmol/L Normal 136-144 [facility] Comment on above: Performed By: #### M AG #### [facility] [address] [place], [place] [address] Urea nitrogen [Mass/Vol] 20 mg/dL Normal 7- [facility] Comment on above: Performed By: #### M AG #### [facility] [address] [place], [place] [address] CT BRAIN WO IVCONon 01-08-[address] BRAIN WO IVCON * * *Final Report* * * DATE OF EXAM: 2020 10:21PM [facility] 0504 - CT BRAIN WO IVCON / [...] None apparent. Parenchyma: Brain volume is normal. Lira-white matter differentiation is preserved throughout. Ventricles: The [...] recurrence of cerebral edema compared to 01/05/2020. Precision Dyer: PSCB Transcribe Date/Time: 2020 10:22P Dictated by : MIKEL CARDENAS MD This examination was interpreted and the report reviewed and electronically signed by: MIKEL CARDENAS MD on 2020 10:26PM EST Normal [facility] Hemogramon 01-08-2020 Erythrocyte distribution width (RBC) [Ratio] 12.6 % Normal 11.7-14.4 [facility] Comment on above: Performed By: #### M AG #### [facility] [address] [place] [address] Hematocrit (Bld) [Volume fraction] 43.5 % Normal 34.1-44.9 [facility] Comment on above: Performed By: #### M AG #### [facility] [address] [place] [address] Hemoglobin (Bld) [Mass/Vol] 14.2 g/dL Normal 11.2-15.7 [facility] Comment on above: Performed By: #### M AG #### [facility] [address] [place] [address] MCH (RBC) [Entitic mass] 32.1 pg Normal 25.6-32.2 [facility] Comment on above: Performed By: #### M AG #### [facility] [address] [place] [address] MCHC (RBC) [Mass/Vol] 32.6 % Normal 31.6-34.8 [facility] Comment on above: Performed By: #### M AG #### [place] [address] MCV (RBC) [Entitic vol] 98.4 fL High 79.4-94.8 [facility] Comment on above: Performed By: #### M AG #### [facility] [address] [place] [address] Platelet mean volume (Bld) [Entitic vol] 10.7 fL Normal 9.4-12.3 [facility] Comment on above: Performed By: #### M AG #### [facility] [address] [place], [place] [address] Platelets (Bld) [#/Vol] 151 thou/cmm Low 182-369 [facility] Comment on above: Performed By: #### M AG #### [place] [address] RBC (Bld) [#/Vol] 4.42 mil/cmm Normal 3.93-5.22 [facility] Comment on above: Performed By: #### M AG #### [facility] [address] [place], [place] [address] RDW SD 45.3 fl Normal 36.4-46.3 [facility] Comment on above: Performed By: #### M AG #### [facility] [address] [place], [place] [address] WBC (Bld) [#/Vol] 10.78 thou/cmm High 3.98-10.04 [facility] Comment on above: Performed By: #### M AG #### [facility] [address] [place] [id number] MDRD GFRon 01-08-2020 GFR/1.73 sq M predicted among non-blacks MDRD (S/P/Bld) [Vol rate/Area] mL/min/{1.73_m2} Normal >60mL/min/1. 73m2 [facility] Comment on above: Result Comment: If t he patient is , multiply the result by 1.210. Performed By: #### G FR #### [place] [address] NURSING PROGon 01-08-2020 NURSING PROG HNO ID: [id number] Author: Meagan (Rn) ARUN Tang Service: Nursing Author Type: Registered Nurse Type: Nursing Progress Note Filed: 01/08/2020 4:07 PM Note Text: Report called to 8100. Patient aware of transfer [facility] PLAN OF CAREon 01-08-2020 PLAN OF CARE HNO ID: [id number] Author: Michelle Talavera Service: Neurology General Author [...] [facility] Center PROGRESSon 01-08-2020 PROGRESS HNO ID: [id number] Author: Melisa Bryant Service: Pain Management Author Type: Physician Type: Progress Notes Filed: 01/08/2020 2:27 PM Note Text: Name: ORTIZ MASON Age: [age] year old PAIN MANAGEMENT: Back [...] status post gastric pacemaker presented 01/02 from [place] transfer with intractable back pain, urinary retention and severe bilateral lower extremity pain and spasm. Patient is followed by Dr. 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/11/2019 2 11/11/2019 Gabapentin 300 MG Capsule 90.00 30 Eu Pet [id number] [facility] [place] 09/26/2019 2 09/25/2019 Oxycodone-Acetaminophen 5-325 12.00 3 Al Abby [id number] [facility] ([facility]) 0 30.00 [place] 09/19/2019 2 09/19/2019 Oxycodone-Acetaminophen 5-325 15.00 3 Do Kol [id number] [facility] (7357) 0 37.50 [place] 08/31/2019 2 08/31/2019 Gabapentin 300 MG Capsule 90.00 30 Ay Bas [id number] [facility] ([facility] [place] 07/15/2019 2 07/15/2019 Gabapentin 300 MG Capsule 90.00 30 Ay Bas [id number] [facility] (7357) 0 [place] 06/03/2019 2 05/30/2019 Diazepam 5 MG Tablet 10.00 4 To Le [id number] [facility] (7357) 0 1.25 [place] 06/03/2019 2 05/30/2019 Oxycodone-Acetaminophen 5-325 12.00 3 To Le [id number] [facility] (7357) 0 30.00 [place] 06/03/2019 2 06/03/2019 Gabapentin 300 MG Capsule 60.00 20 Je B [id number] [facility] (7357) 0 Medicare Current Facility-Administered Medications Medication Dose Route Frequency Provider Last Rate Last Dose - atorvastatin 20 mg tab(s) (LIPITOR) 20 mg ORAL/FEEDING TUBE AT BEDTIME Kelly (Res) Oannabellaaku, DO - aspirin 81 mg chewable tab(s) [...] 4 mg INTRAVENOUS q 6 H Beverly Nicole Daveamy 4 mg at 01/08/20 1250 - levETIRAcetam iv piggyback 1,500 mg in NaCl (iso-osmotic) 100 mL (KEPPRA) 1,500 mg INTRAVENOUS BID Beverly Nicole Daveamy 400 mL/hr at 01/08/20 0802 1,500 mg at 01/08/20 0802 - pantoprazole 40 mg injection (PROTONIX) 40 mg INTRAVENOUS DAILY (6 AM) Johnyandrzejhalley Nicole Daveamy 40 mg at 01/08/20 0500 - lactulose 20 g CUP (DUPHALAC, CONSTULOSE) 20 g ORAL/FEEDING TUBE TID Beverly Nicole Daveamy 20 g at 01/08/20 1256 - diazePAM 5 mg injection (VALIUM) 5 mg INTRAVENOUS q 6 H PRN Erika Rivera Julio C 5 mg at 01/08/20 0800 - perflutren lipid microspheres 1.1 mg/mL 1.3 mL injection (DEFINITY) 1.3 mL INTRAVENOUS DIRECTED PRN Erika Urbinao - ipratropium-albuterol 3 mL nebulizer solution (DUONEB) 3 mL INHALATION QID Erika R Julio C 3 mL at 01/08/20 1151 - potassium chloride ER 20-40 mEq tab(s) (K-DUR, KLOR-CON) 20-40 mEq ORAL/FEEDING TUBE PRN Erika Urbinao Or - potassium chloride iv piggyback 20 mEq/100 mL 20 mEq INTRAVENOUS PRN Erika Bunch - magnesium sulfate in water 2 g [...] 1255 - sodium chloride 0.65 % 2 Hixson (AYR, OCEAN) 2 Hixson EACH NOSTRIL PRN Erika R Julio C [...] VERIFY PATCH OTHER q 8 H Erika Nicole Urbinao gabapentin (NEURONTIN) 300 mg capsule, Take 300 [...] propionate (FLONASE ALLERGY RELIEF NASAL), Use 1 Hixson in the nose twice daily. 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 Robledo in [place] after discharge Melisa Bryant MD [facility] PROGRESS HNO ID: [id number] Author: Beverly Vora Service: Neurology ICU Author [...] Status: Able to remove today Ventilator: None Tucker Status: Present, will discontinue today GI/Stress Ulcer Prophylaxis: PPI Nutrition is at Goal: Advancing to goal VTE Prophylaxis: Chemoprophylaxis: Heparin SQ Pressure Injury Status: None ICU plan of care visit at bedside in last 24 hours: Yes, Provider, RN, Patient/ designee ICU Disposition- Is Patient Clinically Ready to Transfer to [facility] or SDU?: No Discharge Planning: To be [...] - Present Current Assessment AND Plan DC [place] 01/06> straight cath PRN Epilepsy (HCC) 01/05/2020 [...] 0946 -- 01/04/20 0945 pneumatic compression stockings ([place], [place]) 01/03/20 0345 vte non-pharmacologic prophylaxis - none indicated ([place], [place]) VTE Prophylaxis: VTE prophylaxis appropriate Plan of care discussed with: Provider, RN, Patient SIGNATURE: Kelly Robertson DO PATIENT NAME: Ortiz Mason DATE: January 08, 2020 TIME: 2:12 PM PAGER/CONTACT #: [phone] THE NEURO ICU MANAGEMENT OF THIS PATIENT [...] Transfer to floor Please see the documented [id number] plan in the updated problem list. Plan of care discussed with: Provider, RN, Patient. Beverly Vora DO Staff, Neurointensive Care [facility] [place] Date of Service: 01/08/2020 Time of Service: 2:17 PM This is an electronically created document. If printed, please do not remove from the chart or modify printed copy. > 35 min spent at bedside counseling family and discussing plan with consultants as well as bedside management of the patient. Normal [facility] Basic Metabolic Panelon 12-22 Anion gap [Moles/Vol] 10 mmol/L Normal 9-[address] [address] [facility] Comment on above: Performed By: #### M AG #### [facility] [address] [place], [place] [address] Calcium [Mass/Vol] 8.3 mg/dL Low 8.5-10.2 [facility] Comment on above: Performed By: #### M AG #### [facility] [address] [place], [place] [address] Chloride [Moles/Vol] 106 mmol/L High 97-105 [facility] Comment on above: Performed By: #### M AG #### [facility] [address] [place], [place] [address] CO2 Blood 28 mmol/L Normal 22-30 [facility] Comment on above: Performed By: #### M AG #### [facility] [address] [place] [address] Creatinine [Mass/Vol] 0.69 mg/dL Normal 0.58-0.96 [facility] Comment on above: Performed By: #### M AG #### [facility] [address] [place] [address] Glucose [Mass/Vol] 97 mg/dL Normal 74-99 [facility] Comment on above: Result Comment: The [place] Diabetes Association (ADA) provides guidance for cutoff [...] Standards of Medical Care in Diabetes 2016; [place] [employer]. Diabetes Care. 2016;39(Suppl 1). Performed By: #### M AG #### [facility] [address] [place], [place] [address] Potassium [Moles/Vol] 4.5 mmol/L Normal 3.7-5.1 [facility] Comment on above: Performed By: #### M AG #### [facility] [address] [place], [place] [address] Sodium [Moles/Vol] 144 mmol/L Normal 136-144 [facility] Comment on above: Performed By: #### M AG #### [facility] [address] [place], [place] [address] Urea nitrogen [Mass/Vol] 17 mg/dL Normal 7-21 [facility] Comment on above: Performed By: #### M AG #### [facility] [address] [place], [place] [address] Anion gap [Moles/Vol] 11 mmol/L Normal 9-18 [facility] Comment on above: Performed By: #### M AG #### [facility] [address] [place], [place] [address] Calcium [Mass/Vol] 8.3 mg/dL Low 8.5-10.2 [facility] Comment on above: Performed By: #### M AG #### [facility] [address] [place] [address] Chloride [Moles/Vol] 105 mmol/L Normal 97-105 [facility] Comment on above: Performed By: #### M AG #### [facility] [address] [place] [address] CO2 Blood 27 mmol/L Normal 22-30 [facility] Comment on above: Performed By: #### M AG #### [facility] [address] [place], [place] [address] Creatinine [Mass/Vol] 0.69 mg/dL Normal 0.58-0.96 [facility] Comment on above: Performed By: #### M AG #### [facility] [address] [place] [address] Glucose [Mass/Vol] 99 mg/dL Normal 74-99 [facility] Comment on above: Result Comment: The [place] Diabetes Association (ADA) provides guidance for cutoff [...] Standards of Medical Care in Diabetes 2016; [place] [employer]. Diabetes Care. 2016;39(Suppl 1). Performed By: #### M AG #### [facility] [address] [place], [place] [address] Potassium [Moles/Vol] 4.5 mmol/L Normal 3.7-5.1 [facility] Comment on above: Performed By: #### M AG #### [facility] [address] [place], [place] [address] Sodium [Moles/Vol] 143 mmol/L Normal 136-144 [facility] Comment on above: Performed By: #### M AG #### [facility] [address] [place], [place] [address] Urea nitrogen [Mass/Vol] 15 mg/dL Normal 7-21 [facility] Comment on above: Performed By: #### M AG #### [facility] [address] [place], [place] [address] Magnesium Bloodon 2020 Magnesium [Mass/Vol] 2.5 mg/dL High 1.7-2.3 [facility] Comment on above: Performed By: #### M AG #### [facility] [address] [place], [place] [address] Osmolality Serumon 0 Osmolality [Osmolality] 302 mOsm/kg High 276-298 [facility] Comment on above: Performed By: #### M AG #### [address] [address] Osmolality [Osmolality] 298 mOsm/kg Normal 276-298 [facility] Comment on above: Performed By: #### M AG #### [facility] [address] [place], [place] [address] PROGRESSon 2020 PROGRESS HNO ID: [id number] Author: Melisa Bryant Service: Pain Management Author Type: Physician Type: Progress Notes Filed: 2020 3:48 PM Note Text: Name: ORTIZ MASON Age: [age] year old PAIN MANAGEMENT: Back [...] status post gastric pacemaker presented 01/02 from [place] transfer with intractable back pain, urinary retention and severe bilateral lower extremity pain and spasm. Patient is followed by Dr. 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/11/2019 2 11/11/2019 Gabapentin 300 MG Capsule 90.00 30 Eu Pet [id number] [facility] ([facility] 0 [place] 09/26/2019 2 09/25/2019 Oxycodone-Acetaminophen 5-325 12.00 3 Al Abby [id number] [facility] (7357) 0 30.00 [place] 09/19/2019 2 09/19/2019 Oxycodone-Acetaminophen 5-325 15.00 3 Do Kol [id number] [facility] (7357) 0 37.50 [place] 08/31/2019 2 08/31/2019 Gabapentin 300 MG Capsule 90.00 30 Ay Bas [id number] [facility] (7357) 0 [place] 07/15/2019 2 07/15/2019 Gabapentin 300 MG Capsule 90.00 30 Ay Bas [id number] [facility] (7357) 0 [place] 06/03/2019 2 05/30/2019 Diazepam 5 MG Tablet 10.00 4 To Le [id number] [facility] (7357) 0 1.25 [place]ME [place] 06/03/2019 2 05/30/2019 Oxycodone-Acetaminophen 5-325 12.00 3 To Le [id number] [facility] (7357) 0 30.00 [place] 06/03/2019 2 06/03/2019 Gabapentin 300 MG Capsule 60.00 20 Je B [id number] [facility] (7357) 0 Medicare Current Facility-Administered Medications Medication Dose Route Frequency Provider Last Rate Last Dose - enoxaparin 40 mg injection (LOVENOX) 40 mg SUBCUTANEOUS q 24 HR Michelle Ilan 40 mg at 01/07/20 1304 - bisacodyl 10 mg suppository (DULCOLAX) 10 mg RECTAL ONCE Mickie (Alcohol Law Enforcement Agent) Herraiz - prochlorperazine 10 mg injection (COMPAZINE) 10 mg INTRAVENOUS q 6 H PRN Michelle Ilan 10 mg at 01/07/20 1512 - diazePAM 5 mg injection (VALIUM) 5 mg INTRAVENOUS q 6 H PRN Erika Bunch 5 mg at 01/07/20 0803 - pantoprazole 40 mg injection (PROTONIX) 40 mg INTRAVENOUS DAILY (6 AM) Erika R Julio C 40 mg at 01/07/20 0515 - perflutren lipid microspheres 1.1 mg/mL 1.3 mL injection (DEFINITY) 1.3 mL INTRAVENOUS DIRECTED PRN Erika R Julio C - ipratropium-albuterol 3 mL nebulizer solution (DUONEB) 3 mL INHALATION QID Erika R Julio C 3 mL at 01/07/20 1540 - potassium chloride ER 20-40 mEq tab(s) (K-DUR, KLOR-CON) 20-40 mEq ORAL/FEEDING TUBE PRN Erika R Julio C Or - potassium chloride iv piggyback 20 [...] INTRAVENOUS PRN Erika R Julio C - levETIRAcetam iv piggyback 1,500 mg in NaCl (iso-osmotic) 100 mL (KEPPRA) 1,500 mg INTRAVENOUS BID Erika R Julio C 400 mL/hr at 01/07/20 0758 1,500 mg [...] 1150 - sodium chloride 0.65 % 2 Hixson (AYR, OCEAN) 2 Hixson EACH NOSTRIL PRN Erika R Julio C [...] injection (GLUCAGEN) 1 mg INTRAMUSCULAR PRN Erika Bunch Or - dextrose 50% in water 25 mL syringe 12.5 g INTRAVENOUS PRN Erika Urbinao - albuterol 2.5 mg /3 mL (0.083 %) 2.5 mg (PROVENTIL) 2.5 mg INHALATION q 6 H PRN Erika Urbinao 2.5 mg at 01/05/20 1355 - lidocaine 4 % 1 Patch (SALONPAS) 1 Patch TRANSDERMAL DAILY Erika Urbinao 1 Patch at 01/07/20 0758 And - lidocaine patch - REMOVE OTHER AT BEDTIME Erika Urbinao And - lidocaine - VERIFY PATCH OTHER q 8 H Erika Bunch gabapentin (NEURONTIN) 300 mg capsule, Take 300 [...] propionate (FLONASE ALLERGY RELIEF NASAL), Use 1 Hixson in the nose twice daily. , Disp: [...] BMI 33.21 kg/m? 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 Robledo in [place] after discharge Melisa Bryant MD [facility] PROGRESS HNO ID: [id number] Author: Beverly Vora Service: Neurology ICU Author [...] Drain Indwelling Urinary Catheter 01/05/20 1544 Assessment [place] 16 Fr 1 day ICU Checklist Last Documented/Reviewed time: 01/06/2020 4:12 PM ------ - ICU Delirium Status: CAM Negative - no action required Restraint Status: None ICU Mobility-Pt Has Been Out of Bed: No - Specify Line Status: Central multi-lumen catheter Central Line Status: Reason to maintain Central Line Reason to Maintain: Poor access, Other IV med administration Ventilator: None Tucker Status: Present, will maintain Tucker Status Details: Accurate measurement of urine output GI/Stress Ulcer Prophylaxis: None - not required Nutrition is at Goal: NPO VTE Prophylaxis: Chemoprophylaxis: No chemoprophylaxis No Chemoprophylaxis Reason: Bleeding risk Pressure Injury Status: None ICU plan of care visit at bedside in last 24 hours: Yes, Provider, RN, Patient/ designee ICU Disposition- Is Patient Clinically Ready to Transfer to [facility] or SDU?: No Discharge Planning: To be [...] - Present Current Assessment AND Plan DC Tucker 01/06> straight cath PRN Medication and Non-Pharmacologic VTE Prophylaxis/Anticoagula nts Anticoagulant AND Antiplatelet Medications (From admission, onward) Start Dose Route Frequency Ordered Stop 01/07/20 1000 enoxaparin 40 mg injection (LOVENOX) 40 mg SUBCUTANEOUS EVERY 24 HOURS 01/07/20 0946 -- 01/04/20 0945 pneumatic compression stockings (dc,wi) 01/03/20 0345 vte non-pharmacologic prophylaxis - none indicated (dc,wi) VTE Prophylaxis: VTE prophylaxis appropriate Plan of care discussed with: ICU Team and RN SIGNATURE: Michelle Talavera APRN.HOOP BENDER TANK PATIENT NAME: Ortiz Mason DATE: 2020 TIME: 12:17 PM PAGER/CONTACT #: [phone] 35 minutes of CCT Attending Note I have personally performed a face to face assessment of the patient and have reviewed the PA/TESTING AND REGULATING TECHNICIAN note. The patient currently has the following [...] wrap for gastroc is working) - d/c tucker - swish and spit for injured tooth (vomited in bathroom on RNF and injured tooth per her) Signature: Beverly Vora DO Date: 2020 Time: 12:23 PM Normal [facility] PROGRESS HNO ID: [id number] Author: Mickie Irvin) Alvaro Service: Neurosurgery Author [...] H - sodium chloride 0.65 % 2 Hixson (AYR, OCEAN) 2 Hixson EACH NOSTRIL PRN - perflutren lipid microspheres [...] 0946 -- 01/04/20 0945 pneumatic compression stockings ([place], [place]) 01/03/20 0345 vte non-pharmacologic prophylaxis - none indicated ([place]) VTE Prophylaxis: VTE prophylaxis appropriate SIGNATURE: Mickie John APRN.CNP PATIENT NAME: Ortiz Mason DATE: 2020 TIME: 10:30 AM PAGER/CONTACT #: [phone] Normal [facility] Phosphorous Bloodon 01-07-20 20 Phosphate [Mass/Vol] 3.8 mg/dL Normal 2.7-4.8 [facility] Comment on above: Performed By: #### M AG #### [place] [address] THERAPY NTon 2020 THERAPY NT HNO ID: [id number] Author: Lady (Ccc-Framing Mechanic) Luke, CCC/MOLECULAR PATHOLOGIST Service: Speech/Swallow Author Type: Speech Language Pathologist Type: Therapy (PT/OT/Speech/Resp) Filed: 2020 1:43 PM Note Text: Speech Therapy Clinical Swallow Evaluation SERVICE DATE: 2020 SERVICE TIME: 1322 to 1334 ROOM: [id number] Nursing Recommendations: See swallow guide posted in [...] Full Session -Patient asleep in bed on MOLECULAR PATHOLOGIST arrival, woke easily agreeable to evaluation -Patient [...] oral phase Interventions Provided: Clinical Swallow Evaluation (08936) $ Clinical Swallow Evaluation (46548) Billed Units: 1 unit Total Treatment Time (minutes): 12 SUBJECTIVE: Current Hospital Course: Chart reviewed; Reason for admission: 49yo F with a pertinent history of cauda equina syndrome 3 years ago for which she got decompression surgery, epilepsy, and brain aneurysm s/p coiling in the past, migraines, gastroparesis with pacer, and fibromyalgia presented to [place] ER for the above CC. Please see [facility] documents on the chart, I have updated [...] was found to have 420cc retention at [place] therefore a tucker was placed. Her legs are very weak [...] for this therapy evaluation/treatment. SIGNATURE: Lady Heath CCC-MOLECULAR PATHOLOGIST PATIENT NAME: Ortiz Mason DATE: 2020 TIME: 1:39 PM Normal [facility] Activated PTTon 01-06-2020 aPTT Coag (Bld) [Time] 22.4 s Low 23.0-32.4 [facility] Comment on above: Result Comment: Unfr actionated [...] laboratory APTT reagent in use throughout the [facility]. Performed By: #### U RIN2 #### [facility] [address] [place] [address] Basic Metabolic Panelon 05- Anion gap [Moles/Vol] 10 mmol/L Normal 9-18 [facility] Comment on above: Performed By: #### G FR #### [facility] [address] [place] [address] Anion gap [Moles/Vol] 12 mmol/L Normal 9-18 [facility] Comment on above: Performed By: #### U RIN2 #### [facility] [address] [place] [address] Calcium [Mass/Vol] 8.1 mg/dL Low 8.5-10.2 [facility] Comment on above: Performed By: #### U RIN2 #### [facility] [address] [place] [address] Calcium [Mass/Vol] 8.2 mg/dL Low 8.5-10.2 [facility] Comment on above: Performed By: #### U RIN2 #### [place] [address] Calcium [Mass/Vol] 7.9 mg/dL Low 8.5-10.2 [facility] Comment on above: Performed By: #### G FR #### [facility] [address] [place] [address] Chloride [Moles/Vol] 104 mmol/L Normal 97-105 [facility] Comment on above: Performed By: #### U RIN2 #### [facility] [address] [place] [address] Performed By: #### G FR #### [place] [address] CO2 Blood 26 mmol/L Normal 22-30 [facility] Comment on above: Performed By: #### G FR #### [address] [address] Performed By: #### U RIN2 #### [facility] [address] [place] [address] CO2 Blood 27 mmol/L Normal 22-30 [facility] Comment on above: Performed By: #### U RIN2 #### [facility] [address] [place] [address] Creatinine [Mass/Vol] 0.66 mg/dL Normal 0.58-0.96 [facility] Comment on above: Performed By: #### U RIN2 #### [facility] [address] [place] [address] Creatinine [Mass/Vol] 0.68 mg/dL Normal 0.58-0.96 [facility] Comment on above: Performed By: #### U RIN2 #### [facility] [address] [place] [address] Creatinine [Mass/Vol] 0.71 mg/dL Normal 0.58-0.96 [facility] Comment on above: Performed By: #### G FR #### [place] [address] Glucose [Mass/Vol] 91 mg/dL Normal 74-99 [facility] Comment on above: Result Comment: The [place] [employer] Association (ADA) provides guidance for cutoff [...] Standards of Medical Care in Diabetes 2016; [place] [employer]. Diabetes Care. 2016;39(Suppl 1). Performed By: #### U RIN2 #### [place] [address] Glucose [Mass/Vol] 95 mg/dL Normal 74-99 [facility] Comment on above: Result Comment: The [place] Diabetes Association (ADA) provides guidance for cutoff [...] Standards of Medical Care in Diabetes 2016; [place] [employer]. Diabetes Care. 2016;39(Suppl 1). Performed By: #### U RIN2 #### [place] [address] Glucose [Mass/Vol] 105 mg/dL High 74-99 [facility] Comment on above: Result Comment: The [place] Diabetes Association (ADA) provides guidance for cutoff [...] Standards of Medical Care in Diabetes 2016; [place] [employer]. Diabetes Care. 2016;39(Suppl 1). Performed By: #### G FR #### [place] [address] Potassium [Moles/Vol] 4.4 mmol/L Normal 3.7-5.1 [facility] Comment on above: Performed By: #### U RIN2 #### [place] [address] Performed By: #### G FR #### [place] [address] Potassium [Moles/Vol] 4.1 mmol/L Normal 3.7-5.1 [facility] Comment on above: Performed By: #### U RIN2 #### [facility] [address] [place], [place] [address] Sodium [Moles/Vol] 143 mmol/L Normal 136-144 [facility] Comment on above: Performed By: #### U RIN2 #### [facility] [address] [place], [place] [address] Sodium [Moles/Vol] 140 mmol/L Normal 136-144 [facility] Comment on above: Performed By: #### G FR #### [facility] [address] [place], [place] [address] Sodium [Moles/Vol] 142 mmol/L Normal 136-144 [facility] Comment on above: Performed By: #### U RIN2 #### [facility] [address] [place] [address] Urea nitrogen [Mass/Vol] 15 mg/dL Normal 7-21 [facility] Comment on above: Performed By: #### G FR #### [facility] [address] [place] [address] Urea nitrogen [Mass/Vol] 13 mg/dL Normal 7-21 [facility] Comment on above: Performed By: #### U RIN2 #### [facility] [address] [place] [address] CASE MANAGEMon 01-06-2020 CASE MANAGEM HNO ID: [id number] Author: Olga Esposito Service: Care Management Author Type: ? Type: Care Mgt Progress Note Filed: 01/06/2020 3:04 PM Note Text: CARE MANAGEMENT PROGRESS NOTE SERVICE DATE: 01/06/2020 SERVICE TIME: 0900 LOS: 3 days IMM Follow Up Copy Given: Yes(verbal reminder) Copy given to:: Patient Method: By Phone(Narrativeid protocol) SIGNATURE: Olga Esposito PATIENT NAME: Ortiz Mason DATE: January 06, 2020 TIME: 3:04 PM PAGER/CONTACT #: [phone] Normal [facility] [address] BRAIN WO IVCONon 01-06-[address] BRAIN WO IVCON * * *Final Report* * * DATE OF EXAM: Jan 06 2020 6:11PM [facility] 0504 - CT BRAIN WO IVCON / [...] of cerebral edema compared to yesterday's exam. Precision Dyer: BINTA Transcribe Date/Time: Jan 06 2020 6:15P Dictated by : CLEM OSBORNE MD This examination was interpreted and the report reviewed and electronically signed by: CLEM OSBORNE MD on Jan 06 2020 6:19PM EST Normal [facility] Cult and Smr Respiratoryon 0 01-06-2020 Cult and Smr Respiratory Test performed at [facility] Normal oropharyngeal bobo present. Many Gram positive cocci Few Gram positive bacilli Few Polymorphonuclear leukocytes Rare Squamous epithelial cells Normal [facility] Comment on above: Performed By: #### U RIN2 #### [place] [id number] Hemogram/Diffon 01-06-2020 Abs Immature Grans 0.11 thou/cmm High 0.00-0.05 [facility] Comment on above: Performed By: #### G FR #### [place] [id number] Abs Neut (ANC) 9.43 thou/cmm High 1.56-6.13 [facility] Comment on above: Performed By: #### G FR #### [facility] [address] [place] [address] Abs. Baso 0.01 thou/cmm Normal 0.01-0.08 [facility] Comment on above: Performed By: #### G FR #### [facility] [address] [place] [address] Abs. [place] 0.66 thou/cmm Normal 0.27-0.70 [facility] Comment on above: Performed By: #### G FR #### [place] [address] Basophils/100 WBC (Bld) 0.1 % Normal [facility] Comment on above: Performed By: #### G FR #### [place] [address] Eosinophils (Bld) [#/Vol] 0.00 thou/cmm Normal 0.00-0.31 [facility] Comment on above: Performed By: #### G FR #### [place] [address] Eosinophils/100 WBC (Bld) 0.0 % Normal [facility] Comment on above: Performed By: #### G FR #### [place] [address] Erythrocyte distribution width (RBC) [Ratio] 13.2 % Normal 11.7-14.4 [facility] Comment on above: Performed By: #### G FR #### [facility] [address] [place] [address] Hematocrit (Bld) [Volume fraction] 40.6 % Normal 34.1-44.9 [facility] Comment on above: Performed By: #### G FR #### [place] [address] Hemoglobin (Bld) [Mass/Vol] 13.1 g/dL Normal 11.2-15.7 [facility] Comment on above: Performed By: #### G FR #### [facility] [address] [place] [address] Immature Grans 1.00 % Normal [facility] Comment on above: Performed By: #### G FR #### [facility] [address] [place] [address] Lymphocytes (Bld) [#/Vol] 1.15 thou/cmm Low 1.18-3.74 [facility] Comment on above: Performed By: #### G FR #### [facility] [address] [place] [address] Lymphocytes/100 WBC (Bld) 10.1 % Normal [facility] Comment on above: Performed By: #### G FR #### [facility] [address] [place] [address] MCH (RBC) [Entitic mass] 32.3 pg High 25.6-32.2 [facility] Comment on above: Performed By: #### G FR #### [facility] [address] [place] [address] MCHC (RBC) [Mass/Vol] 32.3 % Normal 31.6-34.8 [facility] Comment on above: Performed By: #### G FR #### [facility] [address] [place] [address] MCV (RBC) [Entitic vol] 100.2 fL High 79.4-94.8 [facility] Comment on above: Performed By: #### G FR #### [facility] [address] [place] [address] Monocytes/100 WBC (Bld) 5.8 % Normal [facility] Comment on above: Performed By: #### G FR #### [facility] [address] [place] [address] Platelet mean volume (Bld) [Entitic vol] 9.8 fL Normal 9.4-12.3 [facility] Comment on above: Performed By: #### G FR #### [place] [address] Platelets (Bld) [#/Vol] 257 thou/cmm Normal 182-369 [facility] Comment on above: Performed By: #### G FR #### [facility] [address] [place] [address] RBC (Bld) [#/Vol] 4.05 mil/cmm Normal 3.93-5.22 [facility] Comment on above: Performed By: #### G FR #### [facility] [address] [place] [address] RDW SD 49.1 fl High 36.4-46.3 [facility] Comment on above: Performed By: #### G FR #### [facility] [address] [place] [address] Seg Neutrophil 83.0 % Normal [facility] Comment on above: Performed By: #### G FR #### [facility] [address] [place] [address] WBC (Bld) [#/Vol] 11.36 thou/cmm High 3.98-10.04 [facility] Comment on above: Performed By: #### G FR #### [facility] [address] [place] [address] Hepatic Function Panelon Albumin [Mass/Vol] 3.4 g/dL Low 3.9-4.9 [facility] Comment on above: Performed By: #### G FR #### [facility] [address] [place] [address] ALP [Catalytic activity/Vol] 102 U/L Normal 34-123 [facility] Comment on above: Performed By: #### G FR #### [facility] [address] [place] [address] ALT [Catalytic activity/Vol] 23 U/L Normal 7-38 [facility] Comment on above: Performed By: #### G FR #### [facility] [address] [place] [address] AST [Catalytic activity/Vol] 19 U/L Normal 13-35 [facility] Comment on above: Performed By: #### G FR #### [facility] [address] [place] [address] Bilirubin [Mass/Vol] mg/dL Normal 0.0-0.2 [facility] Comment on above: Performed By: #### G FR #### [facility] [address] [place], [place] [address] Bilirubin [Mass/Vol] 0.2 mg/dL Normal 0.2-1.3 [facility] Comment on above: Performed By: #### G FR #### [facility] [address] [place], [place] [address] Protein [Mass/Vol] 5.4 g/dL Low 6.3-8.0 [facility] Comment on above: Performed By: #### G FR #### [facility] [address] [place], [place] [address] IR BLOOD PATCH INJon 020 IR BLOOD PATCH INJ * * *Final Report* * * DATE OF EXAM: Jan 06 2020 3:26PM PRETTY 2442 - IR BLOOD PATCH INJ / [...] injection for pain management of spinal headache. Precision Dyer: BINTA Transcribe Date/Time: Jan 06 2020 4:05P Dictated by : ERIKA BUNCH MD This examination was interpreted and the report reviewed and electronically signed by: ERIKA BUNCH MD on Jan 06 2020 4:07PM EST Normal [facility] Lipid Profile, Basicon 01-05 Cholesterol [Mass/Vol] 158 mg/dL Normal 0-199 [facility] Comment on above: Result Comment: Tota l Cholesterol < 200 mg/dL, Desirable Total Cholesterol 200 to 239 mg/dL, Borderline high Total Cholesterol > 239 mg/dL, High Performed By: #### U RIN2 #### [address] [address] Cholesterol in HDL [Mass/Vol] 52 mg/dL Normal [facility] Comment on above: Result Comment: Refe rence Range: HDL Cholesterol 40- 59 mg/dL, Acceptable HDL Cholesterol >59 mg/dL, High; Negative risk factor for coronary heart disease HDL Cholesterol <40 mg/dL, Low; Positive risk factor for coronary heart disease Performed By: #### U RIN2 #### [address] [address] Cholesterol in LDL [Mass/Vol] 88 mg/dL Normal 0-99 [facility] Comment on above: Result Comment: LDL Cholesterol < 100 mg/dL, Optimal LDL Cholesterol 100 to 129 mg/dL, Near optimal/above optimal LDL Cholesterol 130 to 159 mg/dL, Borderline high LDL Cholesterol 160 to 189 mg/dL, High LDL Cholesterol > 189 mg/dL, Very high Secondary prevention optimal LDL Cholesterol levels are recommended to be < 70 mg/dL Performed By: #### U RIN2 #### [address] [address] Cholesterol in LDL/Cholesterol in HDL [Mass ratio] 1.69 Normal 0.00-2.53 [facility] Comment on above: Performed By: #### U RIN2 #### [address] [address] Cholesterol.total/Aida sterol in HDL [Mass ratio] 3.04 {ratio} Normal 0.00-5.09 [facility] Comment on above: Performed By: #### U RIN2 #### [address] [address] Non-HDL Cholesterol 106 mg/dL Normal 0-129 [facility] Comment on above: Result Comment: Non [...] mg/dL Performed By: #### U RIN2 #### [place] [address] Triglyceride Blood 91 mg/dL Normal 0-149 [facility] Comment on above: Result Comment: Trig lycerides < 150 mg/dL, Normal Triglycerides 150 to 199 mg/dL, Borderline high Triglycerides 200 to 499 mg/dL, High Triglycerides > 499 mg/dL, Very high Performed By: #### U RIN2 #### [place] [address] VLDL Cholesterol 18 mg/dL Normal 0-29 [facility] Comment on above: Performed By: #### U RIN2 #### [place] [address] Magnesium Bloodon 01-06-2020 Magnesium [Mass/Vol] 2.2 mg/dL Normal 1.7-2.3 [facility] Comment on above: Performed By: #### G FR #### [place] [address] Osmolality Serumon 0 Osmolality [Osmolality] 298 mOsm/kg Normal 276-298 [facility] Comment on above: Performed By: #### U RIN2 #### [place] [address] Osmolality [Osmolality] 298 mOsm/kg Normal 276-298 [facility] Comment on above: Performed By: #### U RIN2 #### [place] [address] Osmolality [Osmolality] 303 mOsm/kg High 276-298 [facility] Comment on above: Performed By: #### G FR #### [place] [address] PLAN OF CAREon 01-06-2020 PLAN OF CARE HNO ID: [id number] Author: Halle Arredondo Service: Neurology ICU Author [...] Medical Center PLAN OF CARE HNO ID: [id number] Author: Michelle Talavera Service: Neurology ICU Author Type: Nurse Practitioner Type: Plan of Care Filed: 01/06/2020 6:13 AM Note Text: Repeat caffeine infusion over 2 hours (second dose) due to ongoing symptoms. Normal [facility] PROGRESSon 01-06-2020 PROGRESS HNO ID: [id number] Author: Janeth Valderrama Service: Pain Management Author Type: Physician Type: Progress Notes Filed: 01/06/2020 11:02 AM Note Text: Name: ORTIZ MASON Age: [age] year old PAIN MANAGEMENT: Back [...] status post gastric pacemaker presented 01/02 from [place] transfer with intractable back pain, urinary retention and severe bilateral lower extremity pain and spasm. Patient is followed by Dr. 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/11/2019 2 11/11/2019 Gabapentin 300 MG Capsule 90.00 30 Eu Pet [id number] [id number] [place] 09/26/2019 2 09/25/2019 Oxycodone-Acetaminophen 5-325 12.00 3 Al Abby [id number] [facility] (7357) 0 30.00 [place] 09/19/2019 2 09/19/2019 Oxycodone-Acetaminophen 5-325 15.00 3 Do Kol [id number] [facility] (7357) 0 37.50 [place] 08/31/2019 2 08/31/2019 Gabapentin 300 MG Capsule 90.00 30 Ay Bas [id number] [facility] (4057) 0 [place] 07/15/2019 2 07/15/2019 Gabapentin 300 MG Capsule 90.00 30 Ay Bas [id number] [facility] (0157) [place] 06/03/2019 2 05/30/2019 Diazepam 5 MG Tablet 10.00 4 To Le [id number] [facility] (1257) 0 1.25 [place]ME [place] 06/03/2019 2 05/30/2019 Oxycodone-Acetaminophen 5-325 12.00 3 To Le [id number] [facility] (0957) 0 30.00 [place] 06/03/2019 2 06/03/2019 Gabapentin 300 MG Capsule 60.00 20 Je B [id number] [facility] (7457) 0 Medicare Current Facility-Administered Medications Medication Dose Route Frequency Provider Last Rate Last Dose - magnesium sulfate in water 2 g in sterile water 50 ml 2 g INTRAVENOUS ONCE Kelly (Res) Ojiaku, DO - valproate sodium 500 mg in [...] DAILY (6 AM) Kelly (Res) Ojiaku, DO - perflutren lipid microspheres 1.1 mg/mL 1.3 mL injection (DEFINITY) 1.3 mL INTRAVENOUS DIRECTED PRN Allyssa (Lilian) Samson - ipratropium-albuterol 3 mL nebulizer solution (DUONEB) 3 mL INHALATION QID Allyssa (Lilian) Samson 3 mL at 01/06/20 0734 - iv contrast (radiology procedure) INTRAVENOUS DIRECTED PRN Allyssa (Pa) Samson - potassium chloride ER 20-40 mEq tab(s) (K-DUR, KLOR-CON) 20-40 mEq ORAL/FEEDING TUBE PRN Allyssa (Pa) Samson Or - potassium chloride iv piggyback 20 mEq/100 mL 20 mEq INTRAVENOUS PRN Allyssa (Pa) Samson - magnesium sulfate in water 2 g in sterile water 50 ml 2 g INTRAVENOUS PRN Allyssa (Pa) Samson - sodium phosphate 45 mmol in NaCl 0.9% 250 mL 45 mmol INTRAVENOUS PRN Allyssa (Pa) Samson - calcium gluconate 4 g in NaCl 0.9% 250 mL 4 g INTRAVENOUS PRN Allyssa (Pa) Samson - sodium chloride-sodium acetate (50:50) iv infusion 3% (HYPERTONIC) INTRAVENOUS CONTINUOUS Allyssa (Pa) Samson 75 mL/hr at 01/06/20 0820 - levETIRAcetam iv piggyback 1,500 mg in NaCl (iso-osmotic) 100 mL (KEPPRA) 1,500 mg INTRAVENOUS BID Allyssa (Pa) Samson 400 mL/hr at 01/06/20 0820 1,500 mg at 01/06/20 0820 - ondansetron 4 mg tab(s) (ZOFRAN) 4 mg ORAL/FEEDING TUBE q 6 H PRN Allyssa (Pa) Samson Or - ondansetron (PF) 4 mg injection (ZOFRAN) 4 mg INTRAVENOUS q 6 H PRN Allyssa (Lilian) Samson 4 mg at 01/06/20 0855 - insulin lispro pen (rapid acting) (HumaLOG KWIKPEN) SUBCUTANEOUS q 6 H Allyssa (Pa) Samson - fentaNYL 50 mcg/mL 25-50 mcg injection (SUBLIMAZE) 25-50 mcg INTRAVENOUS q 1 H PRN Halle (Alcohol Law Enforcement Agent) Staudt 50 mcg at 01/06/20 0855 - sodium chloride 0.65 % 2 Hixson (AYR, OCEAN) 2 Hixson EACH NOSTRIL PRN Allyssa (Pa) Samson - NaCl 0.9% 3-5 mL 3-5 mL INTRAVENOUS q 12 H Allyssa (Pa) Samson 5 mL at 01/06/20 0821 - dexamethasone sodium phosphate 4 mg injection (DECADRON) 4 mg INTRAVENOUS q 6 H Allyssa (Pa) Samson 4 mg at 01/06/20 0625 - dextrose 40 % 15 g 15 g ORAL PRN Allyssa (Pa) Samson Or - glucagon 1 mg injection (GLUCAGEN) 1 mg INTRAMUSCULAR PRN Allyssa (Pa) Samson Or - dextrose 50% in water 25 mL syringe 12.5 g INTRAVENOUS PRN Allyssa (Pa) Samson - albuterol 2.5 mg /3 mL (0.083 %) 2.5 mg (PROVENTIL) 2.5 mg INHALATION q 6 H PRN Allyssa Acosta) Samson 2.5 mg at 01/05/20 1355 - lidocaine 4 % 1 Patch (SALONPAS) 1 Patch TRANSDERMAL DAILY Allyssa Acosta) Samson 1 Patch at 01/05/20 0843 And - lidocaine patch - REMOVE OTHER AT BEDTIME Allyssa Acosta) Samson And - lidocaine - VERIFY PATCH OTHER q 8 H Allyssa Davies (Pa) gabapentin (NEURONTIN) 300 mg capsule, Take 300 [...] propionate (FLONASE ALLERGY RELIEF NASAL), Use 1 Hixson in the nose twice daily. , Disp: [...] 0659(Not Admitted) 01/03/20699 - 01/04/20 0659 Shift 3824-5819 8564-6548 3299-4225 24 Hour Total 1799-6948 9542-8481 8202-4072 24 Hour Total INTAKE Shift Total OUTPUT Urine 1300 1300 Output ( Indwelling Urinary Catheter 01/03/20 0325 Admission to Hospital [facility] 16 Fr) 1300 1300 Shift Total 1300 [...] LOAIZA with some nausea. 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 Robledo in [place] after discharge Janeth Valderrama MD [facility] PROGRESS HNO ID: [id number] Author: Sonia Ferreira (Lilian) LILIAN Barros Service: Neurosurgery Author Type: Physician Pv Installer Tech Type: Progress Notes Filed: 01/06/2020 10:24 AM [...] Therapy: Nasal Cannula IANDO: Date 01/05/20699 - 01/06/20 0601/06/20699 - 01/07/20 0659 Shift 3385-9471 0523-2332 1127-5212 24 Hour Total 8325-0141 8040-0666 3204-0574 24 Hour Total INTAKE IV 3125 1220 4345 Volume (mL) (sodium chloride iv bolus 3% (HYPERTONIC)) 300 300 Volume (mL) (NaCl 0.9% 1,000 mL iv bolus) 1000 1000 Volume (mL) (sodium chloride-sodium acetate (50:50) iv infusion 3% (HYPERTONIC)) 464 595 2504 Volume (mL) (mannitol 20% 100 g infusion (OSMITROL)) 500 500 Volume (mL) (caffeine-sodium benzoate 500 mg in NaCl 0.9% 1,000 mL) 1000 1000 Volume (mL) (levETIRAcetam iv piggyback 1,500 mg in NaCl (iso-osmotic) 100 mL (KEPPRA)) 100 100 Volume (mL) (mannitol 20% 50 g infusion (OSMITROL)) 250 250 Irrigants 250 250 Irrigant/Flush Amount In ([REMOVED] Indwelling Urinary Catheter 01/03/20324 Admission to Hospital [facility] 16 Fr 01/05/20 1051) 250 250 Shift Total 250 3125 1220 4595 OUTPUT Urine 700 1929 1100 3730 Void (ml) 300 300 Urine Not Saved. 1 x 1 x Output ([REMOVED] Indwelling Urinary Catheter 01/03/20324 Admission to [facility] 16 Fr 01/05/20 1051) 400 400 Output ( Indwelling Urinary Catheter 01/05/20 1544 Assessment [facility] 16 Fr) 1930 1100 3030 # of [...] PRN - sodium chloride 0.65 % 2 Hixson (AYR, OCEAN) 2 Hixson EACH NOSTRIL PRN - NaCl 0.9% 3-5 [...] NSICU SIGNATURE: LILIAN Rodríguez PATIENT NAME: Ortiz Mason DATE: January 06, 2020 TIME: 10:12 AM Pager: [phone] [facility] PROGRESS HNO ID: [id number] Author: Beverly Vora Service: Neurology ICU Author [...] Drain Indwelling Urinary Catheter 01/05/20 1544 Assessment [facility] 16 Fr less than 1 day ICU Checklist Last Documented/Reviewed time: 01/05/2020 5:14 PM ------ - ICU Delirium Status: CAM Negative - no action required Restraint Status: None ICU Mobility-Pt Has Been Out of Bed: No - Specify Line Status: Central multi-lumen catheter Central Line Status: Reason to maintain Central Line Reason to Maintain: Poor access, Other IV med administration Ventilator: None Tucker Status: Present, will maintain Tucker Status Details: Accurate measurement of urine output GI/Stress Ulcer Prophylaxis: None - not required Nutrition is at Goal: NPO VTE Prophylaxis: Chemoprophylaxis: No chemoprophylaxis No Chemoprophylaxis Reason: Bleeding risk Pressure Injury Status: None ICU plan of care visit at bedside in last 24 hours: Yes, Provider, RN, Patient/ designee ICU Disposition- Is Patient Clinically Ready to Transfer to [facility] or SDU?: No Discharge Planning: To be [...] 01/05/2020 - Present Current Assessment AND Plan Tucker cath required Medication and Non-Pharmacologic VTE Prophylaxis/Anticoagula nts 01/04/20 0945 pneumatic compression stockings (fl,oh) 01/03/20 0345 vte non-pharmacologic prophylaxis - none indicated (fl,oh) VTE Prophylaxis: Contraindicated possible OR need Plan of care discussed with: RN and Dr Vora SIGNATURE: Michelle Talavera APRN.HOOP BENDER TANK PATIENT NAME: Ortiz Mason DATE: January 06, 2020 TIME: 6:05 AM PAGER/CONTACT #: [phone] minutes of CCT Attending Note I have personally performed a face to face assessment of the patient and have reviewed the PA/TESTING AND REGULATING TECHNICIAN note. The patient currently has the following [...] IV - pain and spasm control - Tucker for now - swish and spit for injured tooth (vomited in bathroom on RNF and injured tooth per her) - PICC line; d/c femoral Signature: Beverly Vora, Date: 01/06/2020 Time: 4:13 PM Normal [facility] Phosphorous Bloodon 01-06-20 20 Phosphate [Mass/Vol] 3.8 mg/dL Normal 2.7-4.8 [facility] Comment on above: Performed By: #### G FR #### [place] [address] Protimeon 01-06-2020 INR Coag (PPP) [Relative time] 0.95 {INR} Normal 0.90-1.30 [facility] Comment on above: Result Comment: Isaura min K Antagonist (VKA) Therapeutic Range: INR 2 to 3 (Target INR of 2.5) Note: For patients treated with VKA drugs, such as warfarin, the [place] [employer] 2012 Guideline recommends [...] to 3.5 target INR of 3). Aye REGALADO, et al. Chest 2012; 141:7S-47S Jose RA et al. JAC 2017; 70: 252-289 Performed By: #### U RIN2 #### [facility] [address] [place], [place] [address] PT Coag (PPP) [Time] 10.3 s Normal 9.7-13.0 [facility] Comment on above: Performed By: #### U RIN2 #### [facility] [address] [place] [id number] THERAPY NTon 01-06-2020 THERAPY NT HNO ID: [id number] Author: Kristen CerratoCcc-Framing MechanicBasilia Thomas CCC/PHILIPPE Service: Speech/Swallow Author Type: Speech Language Pathologist Type: Therapy (PT/OT/Speech/Resp) Filed: 01/06/2020 10:18 AM Note Text: SPEECH THERAPY MISSED VISIT SERVICE DATE: 01/06/2020 SERVICE TIME: 1017 to 1017 ROOM: [place] [address] Attempted Clinical Swallow Evaluation. Patient not seen due to Other: See Comment: RN and Dr. Vora asked to hold due to unable to tolerate sitting up at this point due to swelling in brain. Speech Therapy to re-attempt swallowing evaluation once able to at least tolerate 30 degrees. SIGNATURE: Kristen Thomas CCC-PHILIPPE PATIENT NAME: Ortiz Mason DATE: January 06, 2020 TIME: 10:17 AM [facility] THERAPY NT HNO ID: [id number] Author: Elicia Alcantar/Ruddy Rainey Service: Occupational Therapy Author Type: Occupational Therapist Type: Therapy (PT/OT/Speech/Resp) Filed: 01/06/2020 4:18 PM Note Text: OCCUPATIONAL THERAPY MISSED VISIT SERVICE DATE: 01/06/2020 SERVICE TIME: 1005 to 1005 ROOM: [place] [address] Attempted Evaluation. Patient not seen due to Illness(per RN, unable to tolerate sitting up at this time due to brain swelling ). SIGNATURE: ENEDELIA Funk/Adam PATIENT NAME: Ortiz Mason DATE: January 06, 2020 TIME: 10:06 AM [facility] ALLIED HEALTHon 01-05-2020 ALLIED HEALTH HNO ID: [id number] Author: Ha (Student) Celso Yu Service: Spiritual Care Author Type: Student Type: Allied Health Filed: 01/05/2020 1:36 PM Note Text: SPIRITUALCARE Spiritual Care Visit- Brief Note Name: Ortiz Mason Date: January 05, 2020 Notes: Called room and spoke with patient. Prayed with patient. Spiritual care team is available as needed and discussed with patient how to contact us. Install And Repair Technician Signature: Ha Yu To contact the Spiritual Care Department: Please call [phone] or Page the On-Call Install And Repair Technician at pager [phone] Thank you for the opportunity to be of service. This is an electronically created document. IF PRINTED, PLEASE DO NOT REMOVE FROM THE CHART OR MODIFY PRINTED COPY. Normal [facility] ALLIED HEALTH HNO ID: [id number] Author: Augustine (Rt) Vadim Escoto Service: Radiology Author Type: County Surveyor Type: Allied Health Filed: 01/05/2020 6:44 AM Note Text: Pt has non compatible gastric pacer per RN. MRI cancelled. Normal [facility] HNO ID: [id number] Author: Augustine Gonzales) Vadim Escoto Service: Radiology Author Type: County Surveyor Type: [facility] Health Filed: 01/05/2020 6:41 AM Note Text: Called for MRI screening form. Normal [facility] Basic Metabolic Panelon 12-22 Anion gap [Moles/Vol] 9 mmol/L Normal 9-18 [facility] Comment on above: Performed By: #### G FR #### [address] [address] Calcium [Mass/Vol] 7.8 mg/dL Low 8.5-10.2 [facility] Comment on above: Performed By: #### G FR #### [address] [address] Chloride [Moles/Vol] 111 mmol/L High 97-105 [facility] Comment on above: Performed By: #### G FR #### [facility] [address] [place], [place] [address] CO2 Blood 25 mmol/L Normal 22-30 [facility] Comment on above: Performed By: #### G FR #### [facility] [address] [place], [place] [address] Creatinine [Mass/Vol] 0.84 mg/dL Normal 0.58-0.96 [facility] Comment on above: Performed By: #### G FR #### [facility] [address] [place], [place] [address] Glucose [Mass/Vol] 105 mg/dL High 74-99 [facility] Comment on above: Result Comment: The [place] Diabetes Association (ADA) provides guidance for cutoff [...] Standards of Medical Care in Diabetes 2016; [place] [employer]. Diabetes Care. 2016;39(Suppl 1). Performed By: #### G FR #### [facility] [address] [place], [place] [address] Potassium [Moles/Vol] 4.2 mmol/L Normal 3.7-5.1 [facility] Comment on above: Performed By: #### G FR #### [facility] [address] [place], [place] [address] Sodium [Moles/Vol] 145 mmol/L High 136-144 [facility] Comment on above: Performed By: #### G FR #### [facility] [address] [place], [place] [address] Urea nitrogen [Mass/Vol] 17 mg/dL Normal 7-21 [facility] Comment on above: Performed By: #### G FR #### [facility] [address] [place], [place] [address] Anion gap [Moles/Vol] 11 mmol/L Normal 9-18 [facility] Comment on above: Performed By: #### C MP #### [facility] [address] [place], [place] [address] Calcium [Mass/Vol] 8.0 mg/dL Low 8.5-10.2 [facility] Comment on above: Performed By: #### C MP #### [facility] [address] [place], [place] [address] Chloride [Moles/Vol] 95 mmol/L Low 97-105 [facility] Comment on above: Performed By: #### C MP #### [facility] [address] [place], [place] [address] CO2 Blood 24 mmol/L Normal 22-30 [facility] Comment on above: Performed By: #### C MP #### [facility] [address] [place], [place] [address] Creatinine [Mass/Vol] 0.79 mg/dL Normal 0.58-0.96 [facility] Comment on above: Performed By: #### C MP #### [facility] [address] [place], [place] [address] Glucose [Mass/Vol] 103 mg/dL High 74-99 [facility] Comment on above: Result Comment: The [place] Diabetes Association (ADA) provides guidance for cutoff [...] Standards of Medical Care in Diabetes 2016; [place] [employer]. Diabetes Care. 2016;39(Suppl 1). Performed By: #### C MP #### [facility] [address] [place], [place] [address] Potassium [Moles/Vol] 4.7 mmol/L Normal 3.7-5.1 [facility] Comment on above: Performed By: #### C MP #### [facility] [address] [place], [place] [address] Sodium [Moles/Vol] 130 mmol/L Low 136-144 [facility] Comment on above: Performed By: #### C MP #### [facility] [address] [place], [place] [address] Urea nitrogen [Mass/Vol] 18 mg/dL Normal 7-21 [facility] Comment on above: Performed By: #### C MP #### [facility] [address] [place], [place] [address] Anion gap [Moles/Vol] 11 mmol/L Normal 9-18 [facility] Comment on above: Performed By: #### C BC1 #### [facility] [address] [place], [place] [address] Calcium [Mass/Vol] 9.1 mg/dL Normal 8.5-10.2 [facility] Comment on above: Performed By: #### C BC1 #### [facility] [address] [place], [place] [address] Chloride [Moles/Vol] 102 mmol/L Normal 97-105 [facility] Comment on above: Performed By: #### C BC1 #### [facility] [address] [place], [place] [address] CO2 Blood 25 mmol/L Normal 22-30 [facility] Comment on above: Performed By: #### C BC1 #### [facility] [address] [place], [place] [address] Creatinine [Mass/Vol] 0.62 mg/dL Normal 0.58-0.96 [facility] Comment on above: Performed By: #### C BC1 #### [facility] [address] [place], [place] [address] Glucose [Mass/Vol] 154 mg/dL High 74-99 [facility] Comment on above: Result Comment: The [place] Diabetes Association (ADA) provides guidance for cutoff [...] Standards of Medical Care in Diabetes 2016; [place] [employer]. Diabetes Care. 2016;39(Suppl 1). Performed By: #### C BC1 #### [facility] [address] [place], [place] [address] Potassium [Moles/Vol] 4.7 mmol/L Normal 3.7-5.1 [facility] Comment on above: Performed By: #### C BC1 #### [address] [address] Sodium [Moles/Vol] 138 mmol/L Normal 136-144 [facility] Comment on above: Performed By: #### C BC1 #### [address] [address] Urea nitrogen [Mass/Vol] 15 mg/dL Normal 7-21 [facility] Comment on above: Performed By: #### C BC1 #### [address] [address] Blood Gas Arterialon 05-14-2 020 Base Excess -1.8 mmol/L Normal -3.0-3.0 [facility] Comment on above: Performed By: #### C MP #### [address] [address] HCO3 (Bld) [Moles/Vol] 23.4 mmol/L Normal 21.0-28.0 [facility] Comment on above: Performed By: #### C MP #### [facility] [address] [place], [place] [address] O2% Sat Arterial 95.3 % Low 96.0-100.0 [facility] Comment on above: Performed By: #### C MP #### [address] [address] PCO2 Arterial 43.3 mm Hg Normal 35.0-45.0 [facility] Comment on above: Performed By: #### C MP #### [facility] [address] [place], [place] [address] pH Arterial 7.352 Normal 7.350-7.450 [facility] Comment on above: Performed By: #### C MP #### [facility] [address] [place] [address] PO2 Arterial 81.8 mm Hg Low 83.0-108.0 [facility] Comment on above: Performed By: #### C MP #### [facility] [address] [place] [address] FIO2 21 % Normal [facility] Comment on above: Performed By: #### C MP #### [facility] [address] [place] [address] CONSULTon 01-05-2020 CONSULT HNO ID: [id number] Author: Leandra Joiner Jr. Service: Neurology ICU [...] to admission: No Pre-morbid mRS: Premorbid Modified [place] Score: 1 - No significant disability despite [...] propionate (FLONASE ALLERGY RELIEF NASAL), Use 1 Hixson in the nose twice daily. , Disp: [...] propionate (FLONASE ALLERGY RELIEF NASAL) Use 1 Hixson in the nose twice daily. omeprazole (PRILOSEC) [...] Gaze: 0 - normal gaze 0 Visual Guerra: 2 - complete hemianopia 2 Facial Palsy: [...] Initial NIHSS: 20 (01/05/20 1410 : Allyssa Davies (Pa)) 20 MENTAL STATUS: Awake but dysarthric. [...] Care and Prevention (personally reviewed by ALLYSSA DAVIES PA-C): Daily Rounding Date: 01/05/20 Daily Rounding Time: 1612 PROBLEM LIST: Active Problems: Severe back pain POA: Yes Resolved Problems: * No resolved hospital problems. * Impression/Recommendati ons Ortiz Mason is a 49 year old, female who [...] be staffed by Dr. Joiner. SIGNATURE: ALLYSSA DAVIES PA-C PATIENT NAME: Ortiz Mason DATE: January 05, 2020 TIME: 2:34 PM PAGER/CONTACT #: [phone] [facility] STAFF PHYSICIAN NOTE OF PERSONAL INVOLVEMENT IN CARE I have reviewed the consult note obtained and documented by the physician assistant food service director and I personally participated in the garcia [...] weakness that she received intravenous TPA at [facility] once for in the past. In reviewing her records here at [facility] she has had at [...] such intervention. SIGNATURE: Leandra Joiner MD PAGER: [phone] DATE of SERVICE: January 05, 2020 TIME of SERVICE: 4:59 PM [facility] CONSULT PROGon 01-05-2020 CONSULT PROG HNO ID: [id number] Author: Sonia Acosta) LILIAN Barros Service: Neurosurgery Author Type: Physician Pv Installer Tech Type: Consult Progress Note Filed: 01/06/2020 7:16 [...] (attending on this pt) and Dr. Hare ([place]) were both notified following these new developments. 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 Pt was stephan flat and treatment by neurology initiated. No current neurosurgical intervention indicated. Will continue to follow. LILIAN Rodríguez 4:15 PM [facility] CPKon 01-05-2020 CK [Catalytic activity/Vol] 57 U/L Normal 42-196 [facility] Comment on above: Performed By: #### G FR #### [facility] [address] [place] [address] [address] BRAIN ATTACK WO IVCONon 0 01-05-2020 CT BRAIN ATTACK WO IVCON * * *Final Report* * * DATE OF EXAM: Jan 05 2020 2:31PM [facility] 0502 - CT BRAIN ATTACK WO IVCON [...] Dr. Joiner on 01/05/2020 at 14:52. CR_1 Precision Dyer: BINTA Transcribe Date/Time: Jan 05 2020 2:35P Dictated by : CLEM OSBORNE MD This examination was interpreted and the report reviewed and electronically signed by: CLEM OSBORNE MD on Jan 05 2020 2:53PM EST CRITICAL!! Critically high [facility] CTA HEAD W IVCONon 0 CTA HEAD W IVCON * * *Final Report* * * DATE OF EXAM: Jan 05 2020 2:31PM [facility] 0022 - CTA HEAD W IVCON / [...] arterial stenosis in the head or neck. Precision Dyer: BINTA Transcribe Date/Time: Jan 05 2020 2:55P Dictated by : CLEM OSBORNE MD This examination was interpreted and the report reviewed and electronically signed by: CLEM OSBORNE MD on Jan 05 2020 3:03PM EST Normal [facility] CTA NECK W IVCONon 0 CTA NECK W IVCON * * *Final Report* * * DATE OF EXAM: Jan 05 2020 2:31PM [facility] 0024 - CTA NECK W IVCON / [...] arterial stenosis in the head or neck. Precision Dyer: BINTA Transcribe Date/Time: Jan 05 2020 2:55P Dictated by : CLEM OSBORNE MD This examination was interpreted and the report reviewed and electronically signed by: CLEM OSBORNE MD on Jan 05 2020 3:03PM EST Normal [facility] Hemogram/Diffon 01-05-2020 Abs Immature Grans 0.12 thou/cmm High 0.00-0.05 [facility] Comment on above: Performed By: #### C MP #### [place] [address] Abs Neut (ANC) 9.58 thou/cmm High 1.56-6.13 [facility] Comment on above: Performed By: #### C MP #### [place] [address] Abs. Baso 0.02 thou/cmm Normal 0.01-0.08 [facility] Comment on above: Performed By: #### C MP #### [facility] [address] [place] [address] Abs. [place] 0.71 thou/cmm High 0.27-0.70 [facility] Comment on above: Performed By: #### C MP #### [facility] [address] [place] [address] Basophils/100 WBC (Bld) 0.2 % Normal [facility] Comment on above: Performed By: #### C MP #### [facility] [address] [place] [address] Eosinophils (Bld) [#/Vol] 0.00 thou/cmm Normal 0.00-0.31 [facility] Comment on above: Performed By: #### C MP #### [place] [address] Eosinophils/100 WBC (Bld) 0.0 % Normal [facility] Comment on above: Performed By: #### C MP #### [facility] [address] [place] [address] Erythrocyte distribution width (RBC) [Ratio] 13.2 % Normal 11.7-14.4 [facility] Comment on above: Performed By: #### C MP #### [facility] [address] [place] [address] Hematocrit (Bld) [Volume fraction] 45.2 % High 34.1-44.9 [facility] Comment on above: Performed By: #### C MP #### [facility] [address] [place] [address] Hemoglobin (Bld) [Mass/Vol] 14.7 g/dL Normal 11.2-15.7 [facility] Comment on above: Performed By: #### C MP #### [facility] [address] [place] [address] Immature Grans 1.10 % Normal [facility] Comment on above: Performed By: #### C MP #### [place] [address] Lymphocytes (Bld) [#/Vol] 0.77 thou/cmm Low 1.18-3.74 [facility] Comment on above: Performed By: #### C MP #### [facility] [address] [place], [place] [address] Lymphocytes/100 WBC (Bld) 6.9 % Normal [facility] Comment on above: Performed By: #### C MP #### [facility] [address] [place], [place] [address] MCH (RBC) [Entitic mass] 32.5 pg High 25.6-32.2 [facility] Comment on above: Performed By: #### C MP #### [facility] [address] [place], [place] [address] MCHC (RBC) [Mass/Vol] 32.5 % Normal 31.6-34.8 [facility] Comment on above: Performed By: #### C MP #### [facility] [address] [place], [place] [address] MCV (RBC) [Entitic vol] 99.8 fL High 79.4-94.8 [facility] Comment on above: Performed By: #### C MP #### [facility] [address] [place], [place] [address] Monocytes/100 WBC (Bld) 6.3 % Normal [facility] Comment on above: Performed By: #### C MP #### [address] [address] Platelet mean volume (Bld) [Entitic vol] 9.8 fL Normal 9.4-12.3 [facility] Comment on above: Performed By: #### C MP #### [facility] [address] [place], [place] [address] Platelets (Bld) [#/Vol] 301 thou/cmm Normal 182-369 [facility] Comment on above: Performed By: #### C MP #### [address] [address] RBC (Bld) [#/Vol] 4.53 mil/cmm Normal 3.93-5.22 [facility] Comment on above: Performed By: #### C MP #### [facility] [address] [place] [address] RDW SD 48.6 fl High 36.4-46.3 [facility] Comment on above: Performed By: #### C MP #### [facility] [address] [place] [address] Seg Neutrophil 85.5 % Normal [facility] Comment on above: Performed By: #### C MP #### [facility] [address] [place] [address] WBC (Bld) [#/Vol] 11.20 thou/cmm High 3.98-10.04 [facility] Comment on above: Performed By: #### C MP #### [facility] [address] [place] [address] Abs Immature Grans 0.11 thou/cmm High 0.00-0.05 [facility] Comment on above: Performed By: #### C BC1 #### [facility] [address] [place] [address] Abs Neut (ANC) 11.33 thou/cmm High 1.56-6.13 [facility] Comment on above: Performed By: #### C BC1 #### [facility] [address] [place] [address] Abs. Baso 0.01 thou/cmm Normal 0.01-0.08 [facility] Comment on above: Result Comment: Smea r scanned; tech agrees with automated differential Performed By: #### C BC1 #### [facility] [address] [place] [address] Abs. [place] 0.64 thou/cmm Normal 0.27-0.70 [facility] Comment on above: Performed By: #### C BC1 #### [place] [address] Basophils/100 WBC (Bld) 0.1 % Normal [facility] Comment on above: Performed By: #### C BC1 #### [place] [address] Eosinophils (Bld) [#/Vol] 0.00 thou/cmm Normal 0.00-0.31 [facility] Comment on above: Performed By: #### C BC1 #### [facility] [address] [place], [place] [address] Eosinophils/100 WBC (Bld) 0.0 % Normal [facility] Comment on above: Performed By: #### C BC1 #### [facility] [address] [place], [place] [address] Immature Grans 0.80 % Normal [facility] Comment on above: Performed By: #### C BC1 #### [facility] [address] [place], [place] [address] Lymphocytes (Bld) [#/Vol] 1.48 thou/cmm Normal 1.18-3.74 [facility] Comment on above: Performed By: #### C BC1 #### [facility] [address] [place], [place] [address] Lymphocytes/100 WBC (Bld) 10.9 % Normal [facility] Comment on above: Performed By: #### C BC1 #### [facility] [address] [place], [place] [address] Monocytes/100 WBC (Bld) 4.7 % Normal [facility] Comment on above: Performed By: #### C BC1 #### [facility] [address] [place], [place] [address] Seg Neutrophil 83.5 % Normal [facility] Comment on above: Performed By: #### C BC1 #### [facility] [address] [place], [place] [address] Erythrocyte distribution width (RBC) [Ratio] 13.1 % Normal 11.7-14.4 [facility] Comment on above: Performed By: #### C BC1 #### [facility] [address] [place], [place] [address] Hematocrit (Bld) [Volume fraction] 47.0 % High 34.1-44.9 [facility] Comment on above: Performed By: #### C BC1 #### [facility] [address] [place], [place] [address] Hemoglobin (Bld) [Mass/Vol] 15.3 g/dL Normal 11.2-15.7 [facility] Comment on above: Performed By: #### C BC1 #### [facility] [address] [place], [place] [address] MCH (RBC) [Entitic mass] 32.1 pg Normal 25.6-32.2 [facility] Comment on above: Performed By: #### C BC1 #### [facility] [address] [place], [place] [address] MCHC (RBC) [Mass/Vol] 32.6 % Normal 31.6-34.8 [facility] Comment on above: Performed By: #### C BC1 #### [facility] [address] [place] [address] MCV (RBC) [Entitic vol] 98.5 fL High 79.4-94.8 [facility] Comment on above: Performed By: #### C BC1 #### [facility] [address] [place] [address] Platelet mean volume (Bld) [Entitic vol] 9.8 fL Normal 9.4-12.3 [facility] Comment on above: Performed By: #### C BC1 #### [facility] [address] [place] [address] Platelets (Bld) [#/Vol] 352 thou/cmm Normal 182-369 [facility] Comment on above: Performed By: #### C BC1 #### [facility] [address] [place] [address] RBC (Bld) [#/Vol] 4.77 mil/cmm Normal 3.93-5.22 [facility] Comment on above: Performed By: #### C BC1 #### [facility] [address] [place] [address] RDW SD 47.5 fl High 36.4-46.3 [facility] Comment on above: Performed By: #### C BC1 #### [facility] [address] [place] [address] WBC (Bld) [#/Vol] 13.57 thou/cmm High 3.98-10.04 [facility] Comment on above: Performed By: #### C BC1 #### [facility] [address] [place] [address] Lactic Acidon 01-05-2020 Lactate [Moles/Vol] 1.3 mmol/L Normal 0.5-2.2 [facility] Comment on above: Performed By: #### G FR #### [place] [address] Lactate [Moles/Vol] 1.5 mmol/L Normal 0.5-2.2 [facility] Comment on above: Performed By: #### C MP #### [place] [address] NURSING PROGon 01-05-2020 NURSING PROG HNO ID: [id number] Author: Sneha CerratoRn) ARUN Rangel Service: ? Author Type: Registered Nurse Type: Nursing Progress Note Filed: 01/05/2020 2:15 PM Note Text: Nursing Progress Note Patient Name: Ortiz Mason Patient Location: [id number]/[place] [address] Daily Note: 2:14 PM patient having seizure like activity. Dr Hernandez at bedside and Ivy Davies NP neuro at bedside. This note was completed by: Sneha Rangel RN Normal [facility] NURSING PROG HNO ID: [id number] Author: Sneha Braden) ARUN Rangel Service: ? Author Type: Registered Nurse Type: Nursing Progress Note Filed: 01/05/2020 2:12 PM Note Text: Nursing Progress Note Patient Name: Ortiz Mason Patient Location: [id number]/[place] [address] Daily Note: 1405 cva team called overhead 1410 stroke team assembled with Dr. Hernandez and Ivy Davies, BULL FIDDLE PLAYER at bedside BS 117, vitals recorded This note was completed by: Sneha Rangel RN [facility] NURSING PROG HNO ID: [id number] Author: Colleen CerratoRn) ARUN Sargent Service: Nursing Author Type: Registered Nurse Type: Nursing Progress Note Filed: 01/05/2020 4:08 AM Note Text: Pt still with c/o constipation and feels abdomen more distended. Requesting lactulose message sent to [facility] Osmolality Serumon 0 Osmolality [Osmolality] 308 mOsm/kg High 276-298 [facility] Comment on above: Performed By: #### G FR #### [place] [address] PROGRESSon 01-05-2020 PROGRESS HNO ID: [id number] Author: Allyssa Acosta) Samson Service: Neurology ICU Author Type: Physician Pv Installer Tech Type: Progress Notes Filed: 01/05/2020 5:32 PM [...] propionate (FLONASE ALLERGY RELIEF NASAL), Use 1 Hixson in the nose twice daily. , Disp: [...] Drain Indwelling Urinary Catheter 01/05/20 1544 Assessment Tucker 16 Fr less than 1 day PERSONAL [...] 01/05/2020 - Present Current Assessment AND Plan Tucker was removed today while on floor and [...] Prophylaxis/Anticoagula nts 01/04/20 0945 pneumatic compression stockings (dc,wi) 01/03/20 0345 vte non-pharmacologic prophylaxis - none indicated (dc,wi) VTE Prophylaxis: Contraindicated possible LP Plan of care discussed with: Provider, RN, Patient SIGNATURE: ALLYSSA DAVIES PA-C PATIENT NAME: Ortiz Mason DATE: January 05, 2020 TIME: 5:32 PM PAGER/CONTACT #: [phone] [facility] PROGRESS HNO ID: [id number] Author: Ching Horta Service: Hospital Medicine Author [...] echo as well as stroke team orders [facility] PROGRESS HNO ID: [id number] Author: Janeth Valderrama Service: Pain Management Author Type: Physician Type: Progress Notes Filed: 01/05/2020 12:19 PM Note Text: Name: ORTIZ MASON Age: [age] year old PAIN MANAGEMENT: Back [...] status post gastric pacemaker presented 01/02 from [place] transfer with intractable back pain, urinary retention and severe bilateral lower extremity pain and spasm. Patient is followed by Dr. 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/11/2019 2 11/11/2019 Gabapentin 300 MG Capsule 90.00 30 Eu Pet [id number] [id number] 0 [place] 09/26/2019 2 09/25/2019 Oxycodone-Acetaminophen 5-325 12.00 3 Al Abby [id number] [facility] ([id number]) 0 30.00 [place]ME [place] 09/19/2019 2 09/19/2019 Oxycodone-Acetaminophen 5-325 15.00 3 Do Kol [id number] [facility] (7357) 0 37.50 [place]ME [place] 08/31/2019 2 08/31/2019 Gabapentin 300 MG Capsule 90.00 30 Ay Bas [id number] [facility] ([id number]) 0 [place] 07/15/2019 2 07/15/2019 Gabapentin 300 MG Capsule 90.00 30 Ay Bas [id number] [facility] ([id number]) 0 [place] 06/03/2019 2 05/30/2019 Diazepam 5 MG Tablet 10.00 4 To Le [id number] [facility] (7357) 0 1.25 LME [place] 06/03/2019 2 05/30/2019 Oxycodone-Acetaminophen 5-325 12.00 3 To Le [id number] [facility] (7357) 0 30.00 [place] 06/03/2019 2 06/03/2019 Gabapentin 300 MG Capsule 60.00 20 Je B [id number] [facility] (7357) 0 Medicare Current Facility-Administered Medications [...] 0841 - sodium chloride 0.65 % 2 Hixson (AYR, OCEAN) 2 Hixson EACH NOSTRIL PRN Ching Horta - senna-docusate 8.6-50 mg 2 tablet (SENNA-S) 2 tablet ORAL BID Janeth K Scantling 2 tablet at 01/05/20 0841 - iv contrast (radiology procedure) INTRAVENOUS DIRECTED PRN Gayle Leon - cyclobenzaprine 5 mg tab(s) (FLEXERIL) 5 mg ORAL TID PRN Janeth K Scantling 5 mg at 01/05/20 1144 - melatonin 9 mg tab(s) 9 mg ORAL AT BEDTIME Awilda Tanatia 9 mg at 01/04/207 - enoxaparin 40 mg injection (LOVENOX) 40 [...] 4 mg [facility] q [facility] 4 mg at 01/05/20 0354 - dexamethasone sodium phosphate 4 mg injection (DECADRON) 4 mg INTRAVENOUS q 6 H [facility] [place] 4 mg at 01/05/20 1146 - pantoprazole DR 40 mg tab(s) (PROTONIX) 40 mg ORAL DAILY (6 AM) [facility] 40 mg at 01/05/20 0610 - dextrose 40 % 15 g 15 g ORAL PRN [facility] Or - glucagon 1 mg injection (GLUCAGEN) 1 mg INTRAMUSCULAR PRN [facility] Or - dextrose 50% in water 25 mL syringe 12.5 g INTRAVENOUS PRN [facility] - insulin lispro pen (rapid acting) (HumaLOG KWIKPEN) SUBCUTANEOUS w MEALS [facility] 4 Units at 01/05/20 1145 - albuterol 2.5 mg /3 mL (0.083 %) 2.5 mg (PROVENTIL) 2.5 mg INHALATION q 6 H PRN [facility] - magnesium oxide 400 mg tab(s) (MAG-OX) [...] propionate (FLONASE ALLERGY RELIEF NASAL), Use 1 Hixson in the nose twice daily. , Disp: [...] 33.43 kg/m? BMI 33.43 kg/(m2) Date 01/02/20 0700 - 01/03/20 0659(Not Admitted) 01/03/20 0700 - 01/04/20 0659 Shift 8207-7301 1462-6612 0317-9564 24 Hour Total 1127-8066 8334-0480 4341-3107 24 Hour Total INTAKE Shift Total OUTPUT Urine 1300 1300 Output ( Indwelling Urinary Catheter 01/03/20 0325 Admission to Hospital [facility] 16 Fr) 1300 1300 Shift Total 1300 [...] Disposition pending Follow-up with Dr. Robledo in [place] after discharge Janeth Valderrama MD [facility] PROGRESS HNO ID: [id number] Author: Ching Horta Service: Hospital Medicine Author Type: Physician Type: Progress Notes Filed: 01/05/2020 12:07 PM Note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 injection (LOVENOX) (Medical Risk Categories) 40 mg SUBCUTANEOUS DAILY 01/03/20 0343 -- 01/04/20 0945 pneumatic compression stockings (dc,oh) 01/03/20 0345 vte non-pharmacologic prophylaxis - none indicated (dc,oh) VTE Prophylaxis: VTE prophylaxis appropriate Disposition: To be determined Plan of care discussed with: Provider, RN, Patient SIGNATURE: Ching Horta DO PATIENT NAME: Ortiz Mason DATE: January 05, 2020 TIME: 10:10 AM PAGER/CONTACT #: [phone] Previous Version Janeth Valderrama MD 01/05/2020 12:19 PM Signed Name: ORTIZ MASON Age: [age] year old PAIN MANAGEMENT: Back [...] status post gastric pacemaker presented 01/02 from [place] transfer with intractable back pain, urinary retention and severe bilateral lower extremity pain and spasm. Patient is followed by Dr. 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/11/2019 2 11/11/2019 Gabapentin 300 MG Capsule 90.00 30 Eu Pet [id number] [id number] [place] 09/26/2019 2 09/25/2019 Oxycodone-Acetaminophen 5-325 12.00 3 Al Abby [id number] [facility] ([id number] 0 30.00 [place] 09/19/2019 2 09/19/2019 Oxycodone-Acetaminophen 5-325 15.00 3 Do Kol [id number] [facility] ([id number] 0 37.50 [place] 08/31/2019 2 08/31/2019 Gabapentin 300 MG Capsule 90.00 30 Ay Bas [id number] [facility] ([id number] [place] 07/15/2019 2 07/15/2019 Gabapentin 300 MG Capsule 90.00 30 Ay Bas [id number] [facility] ([id number] [place] 06/03/2019 2 05/30/2019 Diazepam 5 MG Tablet 10.00 4 To Le [id number] [facility] ([id number]) 0 1.25 LME [place] 06/03/2019 2 05/30/2019 Oxycodone-Acetaminophen 5-325 12.00 3 To Le [id number] [facility] ([id number]) 0 30.00 [place] 06/03/2019 2 06/03/2019 Gabapentin 300 MG Capsule 60.00 20 Je B [id number] [facility] ([id number]) 0 Medicare Current Facility-Administered Medications [...] mg 1,500 mg ORAL BID Ching Horta 1,500 mg at 01/05/20 0841 - sodium chloride 0.65 % 2 Hixson (AYR, OCEAN) 2 Hixson EACH NOSTRIL PRN Ching Horta - senna-docusate 8.6-50 mg 2 tablet (SENNA-S) 2 tablet ORAL BID Janeth K Scantling 2 tablet at 01/05/20 0841 - iv contrast (radiology procedure) INTRAVENOUS DIRECTED PRN Gayle Leon - cyclobenzaprine 5 mg tab(s) (FLEXERIL) 5 mg ORAL TID PRN Jnaeth K Scantling 5 mg at 01/05/20 1144 - melatonin 9 mg tab(s) 9 mg [facility] at 01/04/20 1957 - enoxaparin 40 mg injection (LOVENOX) 40 mg SUBCUTANEOUS DAILY [facility] 40 mg at 01/05/20 0841 - NaCl 0.9% 3-5 mL 3-5 mL INTRAVENOUS q 12 H [facility] 3 mL at 01/05/20 0842 - ondansetron 4 mg tab(s) (ZOFRAN) 4 mg ORAL q 6 H PRN Naar Gonzalez 4 mg at 01/05/20 0841 Or - ondansetron (PF) 4 mg injection (ZOFRAN) 4 mg INTRAVENOUS q 6 H PRN Naar Gonzalez 4 mg at 01/05/20 0354 - dexamethasone sodium phosphate 4 mg injection (DECADRON) 4 mg INTRAVENOUS q 6 H [facility] 4 mg at 01/05/20 1146 - pantoprazole DR 40 mg tab(s) (PROTONIX) 40 mg ORAL DAILY (6 AM) Naar Gonzalez 40 mg at 01/05/20 0610 - dextrose 40 % 15 g 15 g [facility] - glucagon 1 mg injection (GLUCAGEN) 1 mg INTRAMUSCULAR PRN [facility] Or - dextrose 50% in water 25 mL syringe 12.5 g [facility]TRAVENOUS PRN [facility] - insulin lispro pen (rapid acting) (HumaLOG KWIKPEN) SUBCUTANEOUS w MEALS Naar Gonzalez 4 Units at 01/05/20 1145 - albuterol 2.5 mg /3 mL (0.083 %) 2.5 mg (PROVENTIL) 2.5 mg INHALATION q 6 H PRN Awilda Gonzalez - magnesium oxide 400 mg tab(s) [...] propionate (FLONASE ALLERGY RELIEF NASAL), Use 1 Hixson in the nose twice daily. , Disp: [...] Admitted) 01/03/20 07 - 01/04/20 0659 Shift 8798-1358 9718-3834 4902-3894 24 Hour Total 9791-1433 8039-5743 0064-5816 24 Hour Total INTAKE Shift Total OUTPUT Urine 1300 1300 Output ( Indwelling Urinary Catheter 01/03/20 0325 Admission to Hospital Tucker 16 Fr) 1300 1300 Shift Total 1300 [...] Disposition pending Follow-up with Dr. Robledo in [place] after discharge MD Ha Benjamin, Student 01/05/2020 1:36 PM Signed SPIRITUALCARE Spiritual Care Visit- Brief Note Name: Ortiz Mason Date: January 05, 2020 Notes: Called room and spoke with patient. Prayed with patient. Spiritual care team is available as needed and discussed with patient how to contact us. Install And Repair Technician Signature: Ha Yu To contact the Spiritual Care Department: Please call [phone] or Page the On-Call Install And Repair Technician at pager [phone] Thank you for the opportunity to be of service. This is an electronically created document. IF PRINTED, PLEASE DO NOT REMOVE FROM THE CHART OR MODIFY PRINTED COPY. Pita Gandhi, PT 01/05/2020 1:55 PM Signed PHYSICAL THERAPY MISSED VISIT SERVICE DATE: 01/05/2020 SERVICE TIME: 1354 to 1354 ROOM: [id number] Attempted Evaluation. Patient not seen due to Illness. RN and tech in room, RN stating patient began coughing and O2 sats slightly dropped. Will follow when more appropriate. SIGNATURE: Pita Gandhi, PT PATIENT NAME: Ortiz Mason DATE: January 05, 2020 TIME: 1:54 PM Sneha Rangel, RN, RN 01/05/2020 2:12 PM Signed Nursing Progress Note Patient Name: Ortiz Mason Patient Location: [id number] Daily Note: 1405 cva team called overhead 1410 stroke team assembled with Dr. Hernandez and Ivy Davies, BULL FIDDLE PLAYER at bedside BS 117, vitals recorded This note was completed by: ARUN Martinez, 01/05/2020 3:15 PM Addendum Alerted that [...] Signed Nursing Progress Note Patient Name: Ortiz Mason Patient Location: [id number] Daily Note: 2:14 PM patient having seizure like activity. Dr Hernandez at bedside and Ivy Davies NP neuro at bedside. This note was completed by: ARUN Martinez MD 01/05/2020 5:08 PM Signed INITIAL [...] to admission: No Pre-morbid mRS: Premorbid Modified Pavel Score: 1 - No significant disability despite symptoms - able to carry out all usual duties and activities PAST MEDICAL HISTORY Diagnosis Date - Back pain - Depression - Intracranial aneurysm - Sleep disorder - Smoking - Stomach cancer (HCC) 2009 - Stroke ([facility]) 09/09/2010 Right Hemisphere - Uterine cancer (HCC) [...] propionate (FLONASE ALLERGY RELIEF NASAL), Use 1 Hixson in the nose twice daily. , Disp: [...] propionate (FLONASE ALLERGY RELIEF NASAL) Use 1 Hixson in the nose twice daily. omeprazole (PRILOSEC) [...] Gaze: 0 - normal gaze 0 Visual Guerra: 2 - complete hemianopia 2 Facial Palsy: [...] NIHSS: 20 (01/05/20 1410 : Allyssa (Roosevelt Davies) 20 MENTAL STATUS: Awake but dysarthric. She [...] Care and Prevention (personally reviewed by ALLYSSA DAVIES PA-C): Daily Rounding Date: 01/05/20 Daily Rounding Time: 1611 PROBLEM LIST: Active Problems: Severe back pain POA: Yes Resolved Problems: * No resolved hospital problems. * Impression/Recommendati ons Ortiz Mason is a 49 year old, female who [...] be staffed by Dr. Joiner. SIGNATURE: ALLYSSA DAVIES PA-C PATIENT NAME: Ortiz Mason DATE: January 05, 2020 TIME: 2:34 PM PAGER/CONTACT #: [phone] [facility] STAFF PHYSICIAN NOTE OF PERSONAL INVOLVEMENT IN CARE I have reviewed the consult note obtained and documented by the physician assistant food service director and I personally participated in the garcia [...] weakness that she received intravenous TPA at [facility] once for in the past. In reviewing her records here at [facility]am [facility] she has had at [...] such intervention. SIGNATURE: Leandra Joiner MD PAGER: [phone] DATE of SERVICE: January 05, 2020 TIME of SERVICE: 4:59 PM Previous Version ALLYSSA DAVIES PA-C 01/05/2020 3:53 PM Edited Patient is [...] patient transfer to NSICU. Previous Version ALLYSSA DAVIES PA-C 01/05/2020 4:04 PM Written NEUROLOGICAL INTENSIVE [...] propionate (FLONASE ALLERGY RELIEF NASAL), Use 1 Hixson in the nose twice daily. , Disp: [...] Drain Indwelling Urinary Catheter 01/05/20 1544 Assessment Tucker 16 Fr less than 1 day PERSONAL [...] (attending on this pt) and Dr. Hare (diamond cleaver) were both notified following these new developments. 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 Pt was stephan flat and treatment by neurology initiated. No current neurosurgical intervention indicated. Will continue to follow. LILIAN Rodríguez 4:15 PM Previous Version ALLYSSA DAVIES PA-C 01/05/2020 4:48 PM Written Had epidural injection performed december 27 then started to develop lower back pain with paraesthesias. Myelogram performed 01/02- no cauda equina, no surgery indicated Pain management following -gabapentin -oxy IR -decadron -lidoderm patch ALLYSSA DAVIES PA-C 01/05/2020 4:55 PM Written 100 mannitol stat given during stroke team 01/04 300 ml 3% HTS, Stat 75ml/hr gtt started now. reverese trendelenburg CT brain in AM ALLYSSA DAVIES PA-C 01/05/2020 4:59 PM Written Tucker was removed today while on floor and now replaced for I/O accuracy UA and culture was sent out yesterday with no grown ALLYSSA DAVIES PA-C 01/05/2020 5:00 PM Written Cont home keppra. Will change to IV for now. ALLYSSA DAVIES PA-C 01/05/2020 5:01 PM Written Ha1c pending ISS Glucose checks q6h while NPO Michelle Talavera APRN.HOOP BENDER TANK 01/06/2020 6:26 AM Edited 01/04: arrived to [...] recovery; repeated Caffeine infusion Previous Version ALLYSSA DAVIES PA-C 01/05/2020 5:31 PM Written Patient states that lactulose is the only medication that works for her Will cont ALLYSSA DAVIES PA-C 01/05/2020 5:32 PM Signed SERVICE DATE: [...] width (RBC) [Ratio] 13.2 % Normal 11.7-14.4 [facility] Comment on above: Performed By: #### C BC1 #### [facility] [address] [place] [address] Hematocrit (Bld) [Volume fraction] 44.7 % Normal 34.1-44.9 [facility] Comment on above: Performed By: #### C BC1 #### [place] [address] Hemoglobin (Bld) [Mass/Vol] 14.6 g/dL Normal 11.2-15.7 [facility] Comment on above: Performed By: #### C BC1 #### [place] [address] MCH (RBC) [Entitic mass] 32.4 pg High 25.6-32.2 [facility] Comment on above: Performed By: #### C BC1 #### [place] [address] MCHC (RBC) [Mass/Vol] 32.7 % Normal 31.6-34.8 [facility] Comment on above: Performed By: #### C BC1 #### [place] [address] MCV (RBC) [Entitic vol] 99.1 fL High 79.4-94.8 [facility] Comment on above: Performed By: #### C BC1 #### [place] [address] Platelet mean volume (Bld) [Entitic vol] 10.4 fL Normal 9.4-12.3 [facility] Comment on above: Performed By: #### C BC1 #### [facility] [address] [place], [place] [address] Platelets (Bld) [#/Vol] 292 thou/cmm Normal 182-369 [facility] Comment on above: Performed By: #### C BC1 #### [facility] [address] [place], [place] [address] RBC (Bld) [#/Vol] 4.51 mil/cmm Normal 3.93-5.22 [facility] Comment on above: Performed By: #### C BC1 #### [facility] [address] [place], [place] [address] RDW SD 49.0 fl High 36.4-46.3 [facility] Comment on above: Performed By: #### C BC1 #### [facility] [address] [place], [place] [address] WBC (Bld) [#/Vol] 10.75 thou/cmm High 3.98-10.04 [facility] Comment on above: Performed By: #### C BC1 #### [facility] [address] [place] [address] Magnesium Bloodon 01-03-2020 Magnesium [Mass/Vol] 2.2 mg/dL Normal 1.7-2.3 [facility] Comment on above: Performed By: #### M AG #### [facility] [address] [place] [address] PROGRESSon 01-03-2020 PROGRESS HNO ID: [id number] Author: Ivy Yeh Service: Hospital Medicine Author Type: Physician Type: Progress Notes Filed: 01/03/2020 2:16 PM Note Text: Patient seen and examined by day orly in AM. Patient continues to complain of episodes of chalie horse cramping in her legs, L buttock, and sometimes as vaginal spasms. In between these spasms she notes a sharp stabbing pain in the center of her low back that feels sharp/knife-like. Her tucker catheter is in place and draining well. [...] DATE OF EXAM: Jan 03 2020 3:31PM [facility] 1005 - US DVT LOWER JULI / [...] of the left and right lower extremities. Precision Dyer: PSCB Transcribe Date/Time: Jan 03 2020 3:46P Dictated by : CHIKIS BRO MD This examination was interpreted and the report reviewed and electronically signed by: CHIKIS BRO MD on Jan 03 2020 3:47PM EST Normal [facility] Urinalysis Routineon 020 Bacteria LM.HPF (Urine sed) [#/Area] NONE Normal None [facility] Comment on above: Performed By: #### U RIN2 #### [place] [address] Ep Cells Urine 1.0 /hpf Normal 0.0-5.0 [facility] Comment on above: Performed By: #### U RIN2 #### [place] [address] Hyaline Cast 0.3 /lpf Normal 0.0-1.0 [facility] Comment on above: Performed By: #### U RIN2 #### [place] [address] RBC LM.HPF (Urine sed) [#/Area] 2.8 /[HPF] Normal 0.0-5.0 [facility] Comment on above: Performed By: #### U RIN2 #### [place] [address] WBC LM.HPF (Urine sed) [#/Area] 22.5 /[HPF] High 0.0-5.0 [facility] Comment on above: Performed By: #### U RIN2 #### [place] [address] Appearance (U) CLEAR Normal [facility] Comment on above: Performed By: #### U RIN2 #### [address] [place], [place] [address] Bilirubin (U) [Mass/Vol] Negative Normal Negative [facility] Comment on above: Performed By: #### U RIN2 #### [facility] [address] [place] [address] Color (U) YELLOW Normal [facility] Comment on above: Performed By: #### U RIN2 #### [facility] [address] [place] [address] Glucose Ql (U) Negative Normal Negative [facility] Comment on above: Performed By: #### U RIN2 #### [facility] [address] [place] [address] Hemoglobin,Urine SMALL Abnormal Negative [facility] Comment on above: Performed By: #### U RIN2 #### [facility] [address] [place] [address] Ketone Urine Negative Normal Negative [facility] Comment on above: Performed By: #### U RIN2 #### [facility] [address] [place] [address] Leukocytes Esterase MODERATE Abnormal Negative [facility] Comment on above: Performed By: #### U RIN2 #### [facility] [address] [place] [address] Nitrites Urine Negative Normal Negative [facility] Comment on above: Performed By: #### U RIN2 #### [facility] [address] [place] [address] pH (U) 5.5 [pH] Normal 5.0-8.0 [facility] Comment on above: Performed By: #### U RIN2 #### [facility] [address] [place] [address] Protein (U) [Mass/Vol] Negative Normal Negative [facility] Comment on above: Performed By: #### U RIN2 #### [facility] [address] [place] [address] Specific [place], Ur 1.019 Normal 1.005-1.030 [facility] Comment on above: Performed By: #### U RIN2 #### [place] [address] Urobilinogen,Ur 0.2 EU/dL Normal 0.2-1.0 [facility] Comment on above: Performed By: #### U RIN2 #### [facility] [address] [place] [id number] XR LUMBAR 2V FLEX/EXTon 12-22 XR LUMBAR [...] of dynamic instability. Correlate with myelogram results. Precision Dyer: PSCB Transcribe Date/Time: Jan 03 2020 8:00P Dictated by : CHIKIS BRO MD This examination was interpreted and the report reviewed and electronically signed by: CHIKIS BRO MD on Jan 03 2020 8:03PM EST Normal [facility] XR LUMBAR 3V AP/LAT/L5-S1on 01-03-2020 XR [...] of dynamic instability. Correlate with myelogram results. Precision Dyer: PSCB Transcribe Date/Time: Jan 03 2020 8:00P Dictated by : CHIKIS BRO MD This examination was interpreted and the report reviewed and electronically signed by: CHIKIS BRO MD on Jan 03 2020 8:03PM EST Normal [facility] XR MYELOGRAM COMPL SPINE DIF F Arleen 01-03-2020 XR MYELOGRAM COMPL SPINE DIFF * * *Final Report* * * DATE OF EXAM: Jan 03 2020 2:58PM [facility] 0030 - XR MYELOGRAM COMPL SPINE DIFF / PROCEDURE REASON: Spinal cord injury * [...] needs. Timeout Affirmation (if attending not present): ACCOUNTS PAYABLE ASSISTANT and RT present. F) Anesthesia Type: administration [...] guidance was performed in conjunction with the production technician. Plane A, Air Kerma: 97.4 mGy Dose Area Product (DAP): 59573.2 mGy*cm Fluoro time: 0:12 min: sec Post-Procedure: [...] myelogram The procedure was performed by: Reuben Marshall CNP Precision Dyer: BINTA Transcribe Date/Time: Jan 03 2020 3:17P Dictated by : REUBEN MARSHALL CNP This examination was interpreted and the report reviewed and electronically signed by: REUBEN MARSHALL CNP on Jan 03 2020 3:18PM EST Normal [facility] Basic Metabolic Panelon 08-25 Anion gap [Moles/Vol] 12 Normal [facility] Comment on above: Performed By: #### B MP3 #### [facility] [address] [place] [address] Calcium [Mass/Vol] 8.9 mg/dL Normal 8.4-10.4 [facility] Comment on above: Performed By: #### B MP3 #### [place] [address] [place] [address] CO2 [Moles/Vol] 13 mmol/L Low 22-30 [facility] Comment on above: Performed By: #### B MP3 #### [facility] [address] [place] [address] Glucose [Mass/Vol] 91 mg/dL Normal 70-100 [facility] Comment on above: Performed By: #### B MP3 #### [place] [address] [place] [address] Urea nitrogen [Mass/Vol] 8 mg/dL Normal 7-20 [facility] Comment on above: Performed By: #### B MP3 #### [facility] [address] [place] [address] Creatinine [Mass/Vol] 0.60 mg/dL Normal 0.52-1.25 [facility] Comment on above: Performed By: #### B MP3 #### [facility] [address] [place] [address] GFR/1.73 sq M predicted among blacks MDRD (S/P/Bld) [Vol rate/Area] mL/min/{1.73_m2} Normal >60 [facility] Comment on above: Performed By: #### B MP3 #### [place] [address] [address] [place], [place] GFR/1.73 sq M predicted among non-blacks MDRD (S/P/Bld) [Vol rate/Area] mL/min/{1.73_m2} Normal >60 [facility] Comment on above: Result Comment: Sour ce- MDRD equation with creatinine calibration to IDMS(NKDEP) eGFR not recommended for drug dose adjustment Performed By: #### B MP3 #### [facility] [address] [place], [place] Chloride [Moles/Vol] 112 mmol/L High 98-107 [facility] Comment on above: Performed By: #### B MP3 #### [place] [address] [address] [place], [place] Potassium [Moles/Vol] 4.7 mmol/L Normal 3.5-5.1 [facility] Comment on above: Result Comment: Slig htly hemolysed, interpret with caution. Performed By: #### B MP3 #### [place] [address] [address] [place], [place] Sodium [Moles/Vol] 137 mmol/L Normal 135-145 [facility] Comment on above: Performed By: #### B MP3 #### [facility] [address] [place], [place] Basic Metabolic Panelon - Anion gap [Moles/Vol] 5 Normal [facility] Comment on above: Performed By: #### B MP3 #### [facility] [address] [place], [place] Calcium [Mass/Vol] 8.3 mg/dL Low 8.4-10.4 [facility] Comment on above: Performed By: #### B MP3 #### [facility] [address] [place], [place] CO2 [Moles/Vol] 24 mmol/L Normal 22-30 [facility] Comment on above: Performed By: #### B MP3 #### [facility] [address] [place], [place] Glucose [Mass/Vol] 90 mg/dL Normal 70-100 [facility] Comment on above: Performed By: #### B MP3 #### [facility] [address] [place] [address] Urea nitrogen [Mass/Vol] 10 mg/dL Normal 7-20 [facility] Comment on above: Performed By: #### B MP3 #### [facility] [address] [place] [address] Creatinine [Mass/Vol] 0.57 mg/dL Normal 0.52-1.25 [facility] Comment on above: Performed By: #### B MP3 #### [place] [address] [place] [address] GFR/1.73 sq M predicted among blacks MDRD (S/P/Bld) [Vol rate/Area] mL/min/{1.73_m2} Normal >60 [facility] Comment on above: Performed By: #### B MP3 #### [place] [address] [address] [place], [place] GFR/1.73 sq M predicted among non-blacks MDRD (S/P/Bld) [Vol rate/Area] mL/min/{1.73_m2} Normal >60 [facility] Comment on above: Result Comment: Sour ce- MDRD equation with creatinine calibration to IDMS(NKDEP) eGFR not recommended for drug dose adjustment Performed By: #### B MP3 #### [facility] [address] [place], [place] Potassium [Moles/Vol] 4.0 mmol/L Normal 3.5-5.1 [facility] Comment on above: Performed By: #### B MP3 #### [facility] [address] [place], [place] Chloride [Moles/Vol] 108 mmol/L High 98-107 [facility] Comment on above: Performed By: #### B MP3 #### [place] [address] [address] [place], [place] Sodium [Moles/Vol] 137 mmol/L Normal 135-145 [facility] Comment on above: Performed By: #### B MP3 #### [place] [address] [place] [address] CR Chest Portableon 09-18-19 20 CR Chest Portable Patient Name: ORTIZ MASON Diagnostic Radiology Exam Date/Time 09/18/2019 15:49:54 EST Exam CR Chest Portable Ordering Physician [id number] NICOLE WILKES Accession Number [id number] CPT4 Codes 99143 () Reason For Exam cough Report CHEST [...] Transcribed Date and Time: 09/18/2019 5:00 Normal [facility] Basic Metabolic Panelon 08-25 Calcium [Mass/Vol] 9.2 mg/dL Normal 8.4-10.4 [facility] Comment on above: Performed By: #### H RUPESH BMP3 #### [address] Glucose [Mass/Vol] 83 mg/dL Normal 70-100 [facility] Comment on above: Performed By: #### H RUPESH BMP3 #### [facility] [address] [place] [address] Urea nitrogen [Mass/Vol] 8 mg/dL Normal 7-20 [facility] Comment on above: Performed By: #### H RUPESH BMP3 #### [address] Anion gap [Moles/Vol] 10 Normal [facility] Comment on above: Performed By: #### H RUPESH BMP3 #### [address] [place], [place] CO2 [Moles/Vol] 23 mmol/L Normal 22-30 [facility] Comment on above: Performed By: #### H RUPESH BMP3 #### [facility] [address] [place], [place] Creatinine [Mass/Vol] 0.53 mg/dL Normal 0.52-1.25 [facility] Comment on above: Performed By: #### H RUPESH BMP3 #### [place] [address] [address] [place], [place] GFR/1.73 sq M predicted among blacks MDRD (S/P/Bld) [Vol rate/Area] mL/min/{1.73_m2} Normal >60 [facility] Comment on above: Performed By: #### H RUPESH BMP3 #### [place] [address] [address] [place], [place] GFR/1.73 sq M predicted among non-blacks MDRD (S/P/Bld) [Vol rate/Area] mL/min/{1.73_m2} Normal >60 [facility] Comment on above: Result Comment: Sour ce- MDRD equation with creatinine calibration to IDMS(NKDEP) eGFR not recommended for drug dose adjustment Performed By: #### H RUPESH BMP3 #### [address] [place] [address] [address] [place], [place] Potassium [Moles/Vol] 4.1 mmol/L Normal 3.5-5.1 [facility] Comment on above: Result Comment: Slig htly hemolysed, interpret with caution. Performed By: #### H RUPESH BMP3 #### [place] [address] [address] [place], [place] Chloride [Moles/Vol] 108 mmol/L High 98-107 [facility] Comment on above: Performed By: #### H RUPESH BMP3 #### [place] [address] [address] [place], [place] Sodium [Moles/Vol] 141 mmol/L Normal 135-145 [facility] Comment on above: Performed By: #### H RUPESH BMP3 #### [facility] [address], [place] Complete Urinalysison 2019 Appearance (U) Clear Normal Clear [facility] Comment on above: Performed By: #### C UA2 #### [place] [address] [address] [place], [place] Bacteria LM.HPF (Urine sed) [#/Area] Negative Normal Negative [facility] Comment on above: Performed By: #### C UA2 #### [place] [address] [address] [place], [place] Bilirubin,Urine Negative Normal Negative [facility] Comment on above: Performed By: #### C UA2 #### [place] [address] [address] [place], [place] Cast, Hyaline Negative Normal Negative [facility] Comment on above: Performed By: #### C UA2 #### [place] [address] [address] [place], [place] Color (U) Yellow Normal Lt. Yellow [facility] Comment on above: Performed By: #### C UA2 #### [place] [address] [address] [place], [place] Glucose Ql (U) Normal Normal Normal (<70) [facility] Comment on above: Performed By: #### C UA2 #### [place] [address] [address] [place], [place] Ketone,Urine Negative Normal Negative [facility] Comment on above: Performed By: #### C UA2 #### [place] [address] [address] [place], [place] Leukocytes,Urine 25 La/uL Normal Negative [facility] Comment on above: Performed By: #### C UA2 #### [place] [address] [address] [place], [place] Mucous Threads Few Normal Negative [facility] Comment on above: Performed By: #### C UA2 #### [address] [place] [address] [address] [place], [place] Nitrites,Urine Negative Normal Negative [facility] Comment on above: Performed By: #### C UA2 #### [place] [address] [address] [place], [place] Occult Blood,Urine 0.06 mg/dL Normal Negative [facility] Comment on above: Performed By: #### C UA2 #### [address] [place] [address] [place], [place] pH (U) 5.0 Normal 5.0-8.0 [facility] Comment on above: Performed By: #### C UA2 #### [place] [address] [address] [place], [place] Protein (U) [Mass/Vol] 20 mg/dL Normal Negative [facility] Comment on above: Performed By: #### C UA2 #### [place] [address] [address] [place], [place] RBC LM.HPF (Urine sed) [#/Area] 6 - 10 Normal 0-2 [facility] Comment on above: Performed By: #### C UA2 #### [place] [address] [address] [place], [place] Specific [place],Urine 1.021 Normal 1.005-1.030 [facility] Comment on above: Performed By: #### C UA2 #### [address] Squamous Epithelial 0 - 2 Normal 3-5 [facility] Comment on above: Performed By: #### C UA2 #### [place] [address] [address] [place], [place] Urobilinogen,Urine Normal Normal Normal (0-1) [facility] Comment on above: Performed By: #### C UA2 #### [address] WBC LM.HPF (Urine sed) [#/Area] 3 - 5 Normal 0-5 [facility] Comment on above: Performed By: #### C UA2 #### [place] [address] [address] [place], [place] Hemogram w/ Autodiffon 09-17 Abs Baso Cnt 0.0 10*3/uL Normal 0.0-0.2 [facility] Comment on above: Performed By: #### H EMDF BMP3 #### [address] Abs Neutrophile Cnt 5.0 10*3/uL Normal 1.8-7.0 [facility] Comment on above: Performed By: #### H EMDF BMP3 #### [place] [address] [place], [place] Basophils/100 WBC (Bld) 0.6 % Normal 0.0-2.0 [facility] Comment on above: Performed By: #### H EMDEdwin BMP3 #### [address] Eosinophils (Bld) [#/Vol] 0.1 10*3/uL Normal 0.0-0.5 [facility] Comment on above: Performed By: #### H RUPESH BMP3 #### [address] Eosinophils/100 WBC (Bld) 0.8 % Low 1.0-6.0 [facility] Comment on above: Performed By: #### H RUPESH BMP3 #### [address] Erythrocyte distribution width (RBC) [Ratio] 13.5 % Normal 11.5-14.5 [facility] Comment on above: Performed By: #### H EMDEdwin BMP3 #### [place] [address] [address] [place], [place] Granulocytes/100 WBC (Bld) 60.0 % Normal 40.0-80.0 [facility] Comment on above: Performed By: #### H EMDEdwin BMP3 #### [address] Hematocrit (Bld) [Volume fraction] 43.4 % Normal 35.0-47.0 [facility] Comment on above: Performed By: #### H EMDF BMP3 #### [address] Hemoglobin (Bld) [Mass/Vol] 14.6 g/dL Normal 11.7-16.0 [facility] Comment on above: Performed By: #### H RUPESH BMP3 #### [facility] [address] [place] [address] Lymphocytes (Bld) [#/Vol] 2.7 10*3/uL Normal 1.0-4.3 [facility] Comment on above: Performed By: #### H RUPESH BMP3 #### [address] [place] [address] [place] [address] Lymphocytes/100 WBC (Bld) 32.3 % Normal 20.0-40.0 [facility] Comment on above: Performed By: #### H RUPESH BMP3 #### [place] [address] [address] [place], [place] MCH (RBC) [Entitic mass] 32.4 pg Normal 26.0-34.0 [facility] Comment on above: Performed By: #### H RUPESH BMP3 #### [address] [place] [address] [place] [address] MCHC (RBC) [Mass/Vol] 33.7 % Normal 32.0-36.0 [facility] Comment on above: Performed By: #### H RUPESH BMP3 #### [address] [place] [address] [place] [address] MCV (RBC) [Entitic vol] 96.1 fL Normal 79.0-98.0 [facility] Comment on above: Performed By: #### H RUPESH BMP3 #### [address] [place] [address] [place] [address] Monocytes (Bld) [#/Vol] 0.5 10*3/uL Normal 0.0-0.8 [facility] Comment on above: Performed By: #### H RUPESH, BMP3 #### [address] [place] [address] [place] [address] Monocytes/100 WBC (Bld) 6.3 % Normal 2.0-10.0 [facility] Comment on above: Performed By: #### H RUPESH BMP3 #### [facility] [address] [place] [address] Platelet mean volume (Bld) [Entitic vol] 8.8 fL Normal 7.4-10.4 [facility] Comment on above: Performed By: #### H EMDF, BMP3 #### [facility] [address] [place] [address] Platelets (Bld) [#/Vol] 284 10*3/uL Normal 140-440 [facility] Comment on above: Performed By: #### H EMDF, BMP3 #### [facility] [address] [place] [address] RBC (Bld) [#/Vol] 4.52 10*6/uL Normal 3.80-5.20 [facility] Comment on above: Performed By: #### H EMDF, BMP3 #### [facility] [address] [place] [address] WBC (Bld) [#/Vol] 8.3 10*3/uL Normal 3.6-10.7 [facility] Comment on above: Performed By: #### H EMDF, BMP3 #### [facility] [address] [place] [address] Basic Metabolic Panelon 01-2 Anion gap [Moles/Vol] 8 Normal [facility] Comment on above: Performed By: #### H EMDF, BMP3 #### [facility] [address] [place] [address] Calcium [Mass/Vol] 10.0 mg/dL Normal 8.4-10.4 [facility] Comment on above: Performed By: #### H EMDF, BMP3 #### [facility] [address] [place] [address] CO2 [Moles/Vol] 27 mmol/L Normal 22-30 [facility] Comment on above: Performed By: #### H EMDF, BMP3 #### [facility] [address] [place] [address] Glucose [Mass/Vol] 87 mg/dL Normal 70-100 [facility] Comment on above: Performed By: #### H RUPESH BMP3 #### [facility] [address] [place] [address] Urea nitrogen [Mass/Vol] 13 mg/dL Normal 7-20 [facility] Comment on above: Performed By: #### H RUPESH BMP3 #### [facility] [address] [place] [address] Creatinine [Mass/Vol] 0.73 mg/dL Normal 0.52-1.25 [facility] Comment on above: Performed By: #### H RUPESH BMP3 #### [facility] [address] [place] [address] GFR/1.73 sq M predicted among blacks MDRD (S/P/Bld) [Vol rate/Area] mL/min/{1.73_m2} Normal >60 [facility] Comment on above: Performed By: #### H RUPESH BMP3 #### [facility] [address] [place] [address] GFR/1.73 sq M predicted among non-blacks MDRD (S/P/Bld) [Vol rate/Area] mL/min/{1.73_m2} Normal >60 [facility] Comment on above: Result Comment: Sour ce- MDRD equation with creatinine calibration to IDMS(NKDEP) eGFR not recommended for drug dose adjustment Performed By: #### H RUPESH BMP3 #### [facility] [address] [place] [address] Chloride [Moles/Vol] 105 mmol/L Normal 98-107 [facility] Comment on above: Performed By: #### H RUPESH BMP3 #### [facility] [address] [place] [address] Potassium [Moles/Vol] 5.1 mmol/L Normal 3.5-5.1 [facility] Comment on above: Performed By: #### H RUPESH, BMP3 #### [facility] [address] [place] [address] Sodium [Moles/Vol] 141 mmol/L Normal 135-145 [facility] Comment on above: Performed By: #### H [facility], BMP3 #### [facility] [address] [place] [address] Basic Metabolic PanelOrdered By: Ari Sotomayor on 09-13-2019 Anion gap [Moles/Vol] 8 mmol/L [facility] Work Phone: 1 Calcium [Mass/Vol] 10.0 mg/dL 8.4 - 10. 4 mg/dL [facility] Work Phone: Chloride [Moles/Vol] 105 mmol/L 98 - 10 7 mmol/L [facility] Work Phone: 1 CO2 [Moles/Vol] 27 mmol/L 22 - 30 mmol/L [facility] Work Phone: Creatinine [Mass/Vol] 0.73 mg/dL 0.52 - 1.25 mg/dL [facility] Work Phone: EGFR IF NonAfrican Guinean >60.0 >60 mL/min [facility] Work Phone: [phone] Comment on above: Source- MDRD equatio n with creatinine calibration to IDMS(NKDEP) eGFR not recommended for drug dose adjustment GFR/1.73 sq M.predicted among blacks MDRD (S/P/Bld) [Vol rate/Area] mL/min/{1.73_m2} >60 mL/min [facility] Work Phone: Glucose [Mass/Vol] 87 mg/dL 70 - 100 mg/dL [facility] Work Phone: Potassium [Moles/Vol] 5.1 mmol/L 3.5 - 5.1 mmol/L [facility] Work Phone: Sodium [Moles/Vol] 141 mmol/L 135 - 145 mmol/L [facility] Work Phone: Urea nitrogen [Mass/Vol] 13 mg/dL 7 - 20 mg/dL [facility] Work Phone: Test Performed by [facility], [address] , [place], [place] [address] [facility] Work Phone: CBC Auto DifferentialOrdered By: Ari Sotomayor on 09-13-2019 Absolute Baso # 0.1 10*3/uL 0 - 0.2 10*3/uL [facility] Work Phone: [phone] Absolute Neut # 4.2 10*3/uL 1.8 - 7 10*3/uL [facility] Work Phone: [phone] Basophils/100 WBC (Bld) 0.8 % 0 - 2 % [facility] [employer] Work Phone: [phone] Eosinophils (Bld) [#/Vol] 0.1 10*3/uL 0 - 0.5 10*3/uL [employer] Work Phone: [phone] Eosinophils/100 WBC (Bld) 0.9 % Low 1 - 6 % [employer] Work Phone: [phone] Erythrocyte distribution width (RBC) [Ratio] 13.7 % 11.5 - 14.5 % [employer] Work Phone: [phone] Granulocytes/100 WBC (Bld) 58.8 % 40 - 80 % [employer] Work Phone: [phone] Hematocrit (Bld) [Volume fraction] 49.8 % High 35 - 47 % [employer] Work Phone: [phone] Hemoglobin (Bld) [Mass/Vol] 16.6 g/dL High 11.7 - 16 g/dL [employer] Work Phone: [phone] Interpretation and review of laboratory results Abnormal [employer] Work Phone: [phone] Lymphocytes (Bld) [#/Vol] 2.2 10*3/uL 1 - 4.3 10*3/uL [employer] Work Phone: [phone] Lymphocytes/100 WBC (Bld) 31.2 % 20 - 40 % [employer] Work Phone: [phone] MCH (RBC) [Entitic mass] 32.4 pg 26 - 34 pg [employer] Work Phone: [phone] MCHC 33.4 % 32 - 36 % [employer] Work Phone: [phone] MCV (RBC) [Entitic vol] 97.0 fL 79 - 98 fL [facility] [employer] Work Phone: [phone] Monocytes (Bld) [#/Vol] 0.6 10*3/uL 0 - 0.8 10*3/uL [employer] Work Phone: Monocytes/100 WBC (Bld) 8.3 % 2 - 10 % [facility] Work Phone: [phone] Platelet mean volume (Bld) [Entitic vol] 7.9 fL 7.4 - 10.4 fL [employer] Work Phone: [phone] Platelets (Bld) [#/Vol] 337 10*3/uL 140 - 440 10*3/uL [facility] Work Phone: [phone] RBC (Bld) [#/Vol] 5.14 10*6/uL 3.8 - 5.2 10*6/uL [facility] Work Phone: WBC (Bld) [#/Vol] 7.1 10*3/uL 3.6 - 10.7 10*3/uL [facility] Work Phone: Test Performed by [facility], [address] [place] [address] [place] [address] [employer] Work Phone: [phone] CT Abdomen Pelvis Wo Contras tOrdered By: Ari Sotomayor on 09-13-2019 Patient Name: ORTIZ MASON ---CT--- Exam Date/Time 09/13/2019 13:43:[address] Abdomen/Pelvis (No PO, No IV) Ordering Physician DO SOTOMAYOR PAUL E. Accession Number [id number] CPT4 Codes 43715 (CT Abdomen/Pelvis (No PO, No IV)) Reason [...] Phone: [facility], [facility] Incoming Radiology Results From [facility] - 09/13/2019 1:57 PM EST Patient Name: ORTIZ MASON ---CT--- Exam Date/Time 09/13/2019 13:43:[address] Abdomen/Pelvis (No PO, No IV) Ordering Physician DO SOTOMAYOR PAUL E. Accession Number [id number] CPT4 Codes 03100 (CT Abdomen/Pelvis (No PO, No IV)) Reason [...] 1:57 [facility] Work Phone: CT Abdomen/Pelvis w/o Contra sinena 09-13-2019 CT Abdomen/Pelvis w/o Contrast Patient Name: ORTIZ MASON CT Exam Date/Time 09/13/2019 13:43:[address] Abdomen/Pelvis (No PO, No IV) Ordering Physician DO SOTOMAYOR PAUL E. Accession Number [id number] CPT4 Codes 50217 (CT Abdomen/Pelvis (No PO, No IV)) Reason [...] Transcribed Date and Time: 09/13/2019 1:57 Normal [facility] Hemogram w/ Autodiffon 09-13 Abs Baso Cnt 0.1 10*3/uL Normal 0.0-0.2 [facility] Comment on above: Performed By: #### H RUPESH BMP3 #### [facility] [address] [place] [address] Abs Neutrophile Cnt 4.2 10*3/uL Normal 1.8-7.0 [facility] Comment on above: Performed By: #### H RUPESH BMP3 #### [facility] [address] [place] [address] Basophils/100 WBC (Bld) 0.8 % Normal 0.0-2.0 [facility] Comment on above: Performed By: #### H RUPESH BMP3 #### [facility] [address] [place] [address] Eosinophils (Bld) [#/Vol] 0.1 10*3/uL Normal 0.0-0.5 [facility] Comment on above: Performed By: #### H EMDF, BMP3 #### [facility] [address] [place] [address] Eosinophils/100 WBC (Bld) 0.9 % Low 1.0-6.0 [facility] Comment on above: Performed By: #### H EMDF, BMP3 #### [facility] [address] [place] [address] Erythrocyte distribution width (RBC) [Ratio] 13.7 % Normal 11.5-14.5 [facility] Comment on above: Performed By: #### H EMDF, BMP3 #### [facility] [address] [place] [address] Granulocytes/100 WBC (Bld) 58.8 % Normal 40.0-80.0 [facility] Comment on above: Performed By: #### H EMDF, BMP3 #### [facility] [address] [place] [address] Hematocrit (Bld) [Volume fraction] 49.8 % High 35.0-47.0 [facility] Comment on above: Performed By: #### H EMDF, BMP3 #### [facility] [address] [place] [address] Hemoglobin (Bld) [Mass/Vol] 16.6 g/dL High 11.7-16.0 [facility] Comment on above: Performed By: #### H EMDF, BMP3 #### [facility] [address] [place] [address] Lymphocytes (Bld) [#/Vol] 2.2 10*3/uL Normal 1.0-4.3 [facility] Comment on above: Performed By: #### H EMDF, BMP3 #### [facility] [address] [place] [address] Lymphocytes/100 WBC (Bld) 31.2 % Normal 20.0-40.0 [facility] Comment on above: Performed By: #### H EMDF, BMP3 #### [facility] [address] [place] [address] MCH (RBC) [Entitic mass] 32.4 pg Normal 26.0-34.0 [facility] Comment on above: Performed By: #### H RUPESH BMP3 #### [facility] [address] [place] [address] MCHC (RBC) [Mass/Vol] 33.4 % Normal 32.0-36.0 [facility] Comment on above: Performed By: #### H RUPESH BMP3 #### [facility] [address] [place] [address] MCV (RBC) [Entitic vol] 97.0 fL Normal 79.0-98.0 [facility] Comment on above: Performed By: #### H RUPESH BMP3 #### [facility] [address] [place] [address] Monocytes (Bld) [#/Vol] 0.6 10*3/uL Normal 0.0-0.8 [facility] Comment on above: Performed By: #### H RUPESH BMP3 #### [facility] [address] [place] [address] Monocytes/100 WBC (Bld) 8.3 % Normal 2.0-10.0 [facility] Comment on above: Performed By: #### Krystyna GODDARD BMP3 #### [facility] [address] [place] [address] Platelet mean volume (Bld) [Entitic vol] 7.9 fL Normal 7.4-10.4 [facility] Comment on above: Performed By: #### H RUPESH BMP3 #### [facility] [address] [place] [address] Platelets (Bld) [#/Vol] 337 10*3/uL Normal 140-440 [facility] Comment on above: Performed By: #### H RUPESH BMP3 #### [facility] [address] [place] [address] RBC (Bld) [#/Vol] 5.14 10*6/uL Normal 3.80-5.20 [facility] Comment on above: Performed By: #### H RUPESH BMP3 #### [facility] [address] [place] [address] WBC (Bld) [#/Vol] 7.1 10*3/uL Normal 3.6-10.7 [facility] Comment on above: Performed By: #### H TOBY GODDARD3 #### [facility] [address] [place] [address] Gastrointestinal Panel by FERNANDO Le 05-13-2019 Gastrointestinal PCR Panel NEGATIVE: No targets were detected by the [employer] Gastrointestinal PCR Panel. The [employer] Gastrointestinal PCR Panel detects the following targets: [...] the assay can be ordered separately with CDPCR ([id number]). [place], [place] Test Performed by [facility], [address] [place] [id number] Specimen Source Comment:Stool [place], [place] Basic Metabolic Panelon 04-24 Anion gap [Moles/Vol] 9 mmol/L [place], [place] Calcium [Mass/Vol] 9.5 mg/dL 8.4 - 10. 4 mg/dL [place] Chloride [Moles/Vol] 108 mmol/L High 98 - 10 7 mmol/L [place] CO2 [Moles/Vol] 25 mmol/L 22 - 30 mmol/L [place] Creatinine [Mass/Vol] 0.61 mg/dL 0.52 - 1.25 mg/dL [place] EGFR IF NonAfrican [place]ine[place] >60.0 >60 mL/min [place] Comment on above: Source- MDRD equatio n with creatinine calibration to IDMS(NKDEP) eGFR not recommended for drug dose adjustment GFR/1.73 sq M predicted among blacks MDRD (S/P/Bld) [Vol rate/Area] mL/min/{1.73_m2} >60 mL/min [place] Glucose [Mass/Vol] 95 mg/dL 70 - 100 mg/dL [place] Interpretation and review of laboratory results Abnormal [place] Potassium [Moles/Vol] 4.2 mmol/L 3.5 - 5.1 mmol/L [place] Sodium [Moles/Vol] 142 mmol/L 135 - 145 mmol/L [place] Urea nitrogen [Mass/Vol] 10 mg/dL 7 - 20 mg/dL [place] C-Reactive Proteinon 019 CRP [Mass/Vol] 6 mg/L 0 - 6 mg/L [place] Comment on above: . Hemogram (CBC) w/Auto Diffon 05-12-2019 Absolute Baso # 0.1 10*3/uL 0 - 0.2 10*3/uL [place] Absolute Neut # 4.0 10*3/uL 1.8 - 7 10*3/uL [place] Basophils/100 WBC (Bld) 1.3 % 0 - 2 % [place] Eosinophils (Bld) [#/Vol] 0.1 10*3/uL 0 - 0.5 10*3/uL [place] Eosinophils/100 WBC (Bld) 1.3 % 1 - 6 % [place] Erythrocyte distribution width (RBC) [Ratio] 13.6 % 11.5 - 14.5 % [place] Granulocytes/100 WBC (Bld) 51.3 % 40 - 80 % [place] Hematocrit (Bld) [Volume fraction] 43.6 % 35 - 47 % [place] Hemoglobin (Bld) [Mass/Vol] 15.1 g/dL 11.7 - 16 g/dL [place] Lymphocytes (Bld) [#/Vol] 3.0 10*3/uL 1 - 4.3 10*3/uL [place] Lymphocytes/100 WBC (Bld) 38.2 % 20 - 40 % [place] MCH (RBC) [Entitic mass] 31.8 pg 26 - 34 pg [place] MCHC (RBC) [Mass/Vol] 34.5 % 32 - 36 % [place] MCV (RBC) [Entitic vol] 92.1 fL 79 - 98 fL [place] Monocytes (Bld) [#/Vol] 0.6 10*3/uL 0 - 0.8 10*3/uL [place] Monocytes/100 WBC (Bld) 7.9 % 2 - 10 % [place] Platelet mean volume (Bld) [Entitic vol] 8.5 fL 7.4 - 10.4 fL [place] Platelets (Bld) [#/Vol] 281 10*3/uL 140 - 440 10*3/uL [place] RBC (Bld) [#/Vol] 4.74 10*6/uL 3.8 - 5.2 10*6/uL [place] WBC (Bld) [#/Vol] 7.9 10*3/uL 3.6 - 10.7 10*3/uL [place] Test Performed by [address] Otheron 05-12-2019 Test Performed by [id number] [place] [address] Protime-INRon 05-12-2019 INR Coag (PPP) [Relative time] 1.0 {INR} [place] Comment on above: Recommended Anticoag ulant [...] [Time] 10.2 s 9 - 12 s [place], [place] Comment on above: . Test Performed by [facility], [address] [place] [facility] [address] [place], [place] Sedimentation Rateon 019 Sed Rate 2 mm/h 0 - 20 mm/h [place] Test Performed by [facility], [address] [place] [address] [place] XR HIP LEFT (2-3 VIEWS)on [facility] - 05/12/2019 11:11 PM EDT Patient Name: ORTIZ MASON ---Diagnostic Radiology--- Exam Date/Time 05/12/2019 23:05:44 EDT Exam CR Hip w/ Pelvis 2 or 3 Views Left n Ordering Physician BEVERLY GARCIA Accession Number [id number] CPT4 Codes 55510 () Reason For Exam pain Report PELVIS [...] 2. Postsurgical change. Report Dictated on Workstation: [email or web address] --- Final --- Dictated: 05/12/2019 11:07 pm Dictating Physician: MD VALLEJO WENDELL Signed Date and Time: 05/12/2019 11:10 pm Signed by: MD VALLEJO WENDELL Transcribed Date and Time: 05/12/2019 11:07 [place], [place] Patient Name: ORTIZ MASON ---Diagnostic Radiology--- Exam Date/Time 05/12/2019 23:05:44 EDT Exam CR Hip w/ Pelvis 2 or 3 Views Left n Ordering Physician BEVERLY GARCIA Accession Number [id number] CPT4 Codes 99947 () Reason For Exam pain Report PELVIS [...] 2. Postsurgical change. Report Dictated on Workstation: [id number] --- Final --- Dictated: 05/12/2019 11:07 pm Dictating Physician: MD VALLEJO WENDELL Signed Date and Time: 05/12/2019 11:10 pm Signed by: MD VALLEJO WENDELL Transcribed Date and Time: 05/12/2019 11:07 [facility], [place] XR LUMBAR SPINE (2-3 VIEWS)o n 05-12-2019 [facility], [facility] Incoming Radiology Results From [facility] - 05/12/2019 11:17 PM EDT Patient Name: ORTIZ MASON ---Diagnostic Radiology--- Exam Date/Time 05/12/2019 23:06:10 EDT Exam CR Spine Lumbosacral 2 or 3 Views Ordering Physician [id number] BEVERLY CASON Accession Number [id number] CPT4 Codes 91190 () Reason For Exam pain flexion and [...] and degenerative change. Report Dictated on Workstation: [id number] --- Final --- Dictated: 05/12/2019 11:12 pm Dictating Physician: MD VALLEJO WENDELL Signed Date and Time: 05/12/2019 11:16 pm Signed by: MD VALLEJO WENDELL Transcribed Date and Time: 05/12/2019 11:12 [place] Patient Name: ORTIZ MASON ---Diagnostic Radiology--- Exam Date/Time 05/12/2019 23:06:10 EDT Exam CR Spine Lumbosacral 2 or 3 Views Ordering Physician [id number] BEVERLY CASON Accession Number [id number] CPT4 Codes 39574 () Reason For Exam pain flexion and [...] and degenerative change. Report Dictated on Workstation: [id number] --- Final --- Dictated: 05/12/2019 11:12 pm Dictating Physician: MD VALLEJO WENDELL Signed Date and Time: 05/12/2019 11:16 pm Signed by: MD VALLEJO WENDELL Transcribed Date and Time: 05/12/2019 11:12 [place], [place], [facility] Incoming Radiology Results From [facility] - 05/12/2019 9:21 PM EDT Patient Name: ORTIZ MASON ---Diagnostic Radiology--- Exam Date/Time 05/12/2019 21:15:55 EDT Exam CR Spine Lumbosacral 2 or 3 Views Ordering Physician [id number] ANGEL RAMOS Accession Number [id number] CPT4 Codes 86735 () Reason For Exam lumbar pain, hx [...] NICHOLAS Transcribed Date and Time: 05/12/2019 9:16 [place], [place] Patient Name: ORTIZ MASON ---Diagnostic Radiology--- Exam Date/Time 05/12/2019 21:15:55 EDT Exam CR Spine Lumbosacral 2 or 3 Views Ordering Physician [id number] ANGEL RAMOS Accession Number [id number] CPT4 Codes 99965 () Reason For Exam lumbar pain, hx [...] NICHOLAS Transcribed Date and Time: 05/12/2019 9:16 [facility], [place] COVID-19 virus antigen assay SARS-CoV-2 (COVID-19) Ag IA.rapid Ql (Resp) [facility] Work Phone: No Panel Information Influenza Types A,B Direct FA (CRAIG) [facility] Work Phone: Vital Signs Date Time Vital Sign Value Performing Clinician Facility 04-14-2025 09:15-0400 Body temperature 98.4 [degF] Dr. Amandeep Loredo DO Work Phone: [facility] 04-14-2025 09:15-0400 Diastolic blood pressure 82 mm[Hg] Dr. Amandeep Loredo DO Work Phone: [facility] 04-14-2025 09:15-0400 Heart rate 66 /min Dr. Amandeep Loredo DO Work Phone: [facility] 04-14-2025 09:15-0400 Respiratory rate 16 /min Dr. Amandeep Loredo DO Work Phone: [facility] 04-14-2025 09:15-0400 SaO2% (BldA) [Mass fraction] 95 % Dr. Amandeep Loredo DO Work Phone: [facility] 04-14-2025 09:15-0400 Systolic blood pressure 138 mm[Hg] Dr. Amandeep Loredo DO Work Phone: [facility] 04-14-2025 07:39-0400 Body mass index (BMI) [Ratio] 28 kg/m2 Dr. Amandeep Loredo DO Work Phone: [facility] 04-14-2025 07:39-0400 Body weight [address] Amandeep Loredo DO Work Phone: [facility] 04-14-2025 07:36-0400 Body height 175.[address] Amandeep Loredo DO Work Phone: [facility] 03-14-2025 15:50-0400 Body temperature 97.5 [degF] Dr. Amandeep Loredo DO Work Phone: [facility] 03-14-2025 15:50-0400 Diastolic blood pressure 83 mm[Hg] Dr. Amandeep Loredo DO Work Phone: [facility] 03-14-2025 15:50-0400 Heart rate 70 /min Dr. Amandeep Loredo DO Work Phone: [facility] 03-14-2025 15:50-0400 Respiratory rate 16 /min Dr. Amandeep Loredo DO Work Phone: [facility] 03-14-2025 15:50-0400 SaO2% (BldA) [Mass fraction] 99 % Dr. Amandeep Loredo DO Work Phone: [facility] 03-14-2025 15:50-0400 Systolic blood pressure 117 mm[Hg] Dr. Amandeep Loredo DO Work Phone: [facility] 03-14-2025 13:58-0400 Body height 175.[address] Amandeep Loredo DO Work Phone: [facility] 03-14-2025 13:58-0400 Body mass index (BMI) [Ratio] 26.9 kg/m2 Dr. Amandeep Loredo DO Work Phone: [facility] 03-14-2025 13:58-0400 Body weight 82.[address] Amandeep Loredo DO Work Phone: [facility] 01-05-2025 19:49-0400 Heart rate 88 /min Dr. Amandeep Loredo DO Work Phone: [facility] 01-05-2025 19:49-0400 Respiratory rate 18 /min Dr. Amandeep Loredo DO Work Phone: [facility] 01-05-2025 19:49-0400 SaO2% (BldA) [Mass fraction] 100 % Dr. Amandeep Loredo DO Work Phone: [facility] 01-05-2025 19:48-0400 Body mass index (BMI) [Ratio] 28.9 kg/m2 Dr. Amandeep Loredo DO Work Phone: [facility] 01-05-2025 19:48-0400 Body weight 88.[address] Amandeep Loredo DO Work Phone: [facility] 01-05-2025 18:20-0400 Diastolic blood pressure 73 mm[Hg] Dr. Amandeep Loredo DO Work Phone: [facility] 01-05-2025 18:20-0400 Systolic blood pressure 110 mm[Hg] Dr. Amandeep Loredo DO Work Phone: [facility] 01-05-2025 16:57-0400 Body height 175.[address] Amandeep Loredo DO Work Phone: [facility] 01-05-2025 16:57-0400 Body temperature 96.9 [degF] Dr. Amandeep Loredo DO Work Phone: [facility] 10-21-2024 00:35-0500 Body temperature 98.1 [degF] Dr. Amandeep Loredo DO Work Phone: [facility] 10-21-2024 00:35-0500 Diastolic blood pressure 79 mm[Hg] Dr. Amandeep Loredo DO Work Phone: [facility] 10-21-2024 00:35-0500 Heart rate 69 /min Dr. Amandeep Loredo DO Work Phone: [facility] 10-21-2024 00:35-0500 Respiratory rate 18 /min Dr. Amandeep Loredo DO Work Phone: [facility] 10-21-2024 00:35-0500 SaO2% (BldA) [Mass fraction] 99 % Dr. Amandeep Loredo DO Work Phone: [facility] 10-21-2024 00:35-0500 Systolic blood pressure 155 mm[Hg] Dr. Amandeep Loredo DO Work Phone: [facility] 10-20-2024 20:13-0500 Body mass index (BMI) [Ratio] 28 kg/m2 Dr. Amandeep Loredo DO Work Phone: [facility] 10-20-2024 20:13-0500 Body weight 86.[address] Amandeep Loredo DO Work Phone: [facility] 12-01-2023 04:06-0400 Body temperature 99.4 [degF] [facility] 12-01-2023 04:06-0400 Diastolic blood pressure 81 mm[Hg] [facility] 12-01-2023 04:06-0400 Heart rate 98 /min [facility] 12-01-2023 04:06-0400 Respiratory rate 16 /min [facility] 12-01-2023 04:06-0400 SaO2% (BldA) [Mass fraction] 97 % [facility] 12-01-2023 04:06-0400 Systolic blood pressure 165 mm[Hg] [facility] 12-01-2023 02:07-0400 Body height 172.72 cm [facility] 12-01-2023 02:07-0400 Body mass index (BMI) [Ratio] 26.7 kg/m2 [facility] 12-01-2023 02:07-0400 Body weight 79.9 kg [facility] 11-18-2023 19:22-0400 Body temperature 98.6 [degF] [facility] 11-18-2023 19:22-0400 Diastolic blood pressure 80 mm[Hg] [facility] 11-18-2023 19:22-0400 Heart rate 92 /min [facility] 11-18-2023 19:22-0400 Respiratory rate 22 /min [facility] 11-18-2023 19:22-0400 SaO2% (BldA) [Mass fraction] 99 % [facility] 11-18-2023 19:22-0400 Systolic blood pressure 145 mm[Hg] [facility] 11-18-2023 18:49-0400 Body mass index (BMI) [Ratio] 27.5 kg/m2 [facility] 11-18-2023 18:49-0400 Body weight 82.1 kg [facility] 11-18-2023 18:42-0400 Body height 172.72 cm [facility] 10-07-2023 22:09-0500 Body temperature 96.5 [degF] [facility] 10-07-2023 22:09-0500 Diastolic blood pressure 84 mm[Hg] [facility] 10-07-2023 22:09-0500 Heart rate 78 /min [facility] 10-07-2023 22:09-0500 Respiratory rate 18 /min [facility] 10-07-2023 22:09-0500 SaO2% (BldA) [Mass fraction] 99 % [facility] 10-07-2023 22:09-0500 Systolic blood pressure 140 mm[Hg] [facility] 10-07-2023 19:11-0500 Body height 172.72 cm [facility] 10-07-2023 19:11-0500 Body mass index (BMI) [Ratio] 26.8 kg/m2 [facility] 10-07-2023 19:11-0500 Body weight 80 kg [facility] 07-27-2023 16:31-0500 Body height 172.7 cm Amandeep Loredo DO Work Phone: [facility] 07-27-2023 16:31-0500 Body mass index (BMI) [Ratio] 27.22 kg/m2 Amandeep Loredo DO Work Phone: [facility] 07-27-2023 16:31-0500 Body temperature 97.81 [degF] Amandeep Loredo DO Work Phone: [facility] 07-27-2023 16:31-0500 Body weight 81.19 kg Amandeep Loredo DO Work Phone: [facility] 07-27-2023 16:31-0500 Diastolic blood pressure 78 mm[Hg] Amandeep Loredo DO Work Phone: [facility] 07-27-2023 16:31-0500 Heart rate 98 /min Amandeep Loredo DO Work Phone: [facility] 07-27-2023 16:31-0500 SaO2% (BldA) [Mass fraction] 95 % Amandeep Loredo DO Work Phone: [facility] 07-27-2023 16:31-0500 Systolic blood pressure 130 mm[Hg] Amandeep Loredo DO Work Phone: [facility] 03-06-2023 01:20-0400 Diastolic Blood Pressure Non-Invasive 78 1 BELINDA COVARRUBIAS MD [facility] 03-06-2023 01:20-0400 Heart rate 85 /min BELINDA COVARRUBIAS MD [facility] 03-06-2023 01:20-0400 Respiratory rate 16 /min BELINDA COVARRUBIAS MD [facility] 03-06-2023 01:20-0400 Systolic Blood Pressure Non-Invasive 118 1 BELINDA COVARRUBIAS MD [facility] 03-05-2023 22:56-0400 Body height 172.7 cm BELINDA COVARRUBIAS MD [facility] 03-05-2023 22:56-0400 Body temperature 98.24 [degF] BELINDA COVARRUBIAS MD [facility] 03-05-2023 22:56-0400 Body weight 72.7 kg BELINDA COVARRUBIAS MD [facility] 03-05-2023 22:56-0400 Diastolic Blood Pressure Non-Invasive 79 1 BELINDA COVARRUBIAS MD [facility] 03-05-2023 22:56-0400 Heart rate 95 /min BELINDA COVARRUBIAS MD [facility] 03-05-2023 22:56-0400 Respiratory rate 16 /min BELINDA COVARRUBIAS MD [facility] 03-05-2023 22:56-0400 Systolic Blood Pressure Non-Invasive 112 1 BELINDA COVARRUBIAS MD [facility] 02-15-2023 17:09-0400 Body height 172.72 cm [facility] 02-15-2023 17:09-0400 Body mass index (BMI) [Ratio] 27.1 kg/m2 [facility] 02-15-2023 17:09-0400 Body temperature 96.4 [degF] [facility] 02-15-2023 17:09-0400 Body weight 80.83 kg [facility] 02-15-2023 17:09-0400 Diastolic blood pressure 78 mm[Hg] [facility] 02-15-2023 17:09-0400 Heart rate 82 /min [facility] 02-15-2023 17:09-0400 Respiratory rate 16 /min [facility] 02-15-2023 17:09-0400 SaO2% (BldA) [Mass fraction] 98 % [facility] 02-15-2023 17:09-0400 Systolic blood pressure 118 mm[Hg] [facility] 11-27-2022 07:37-0400 Diastolic blood pressure 76 mm[Hg] Earl Parson MD Work Phone: [facility] 11-27-2022 07:37-0400 Heart rate 67 /min Earl Parson MD Work Phone: [facility] 11-27-2022 07:37-0400 Systolic blood pressure 117 mm[Hg] Earl Parson MD Work Phone: [facility] 11-27-2022 07:34-0400 Body temperature 96.21 [degF] Earl Parson MD Work Phone: [facility] 11-27-2022 07:34-0400 Respiratory rate 16 /min Earl Parson MD Work Phone: [facility] 11-27-2022 07:34-0400 SaO2% (BldA) [Mass fraction] 97 % Earl Parson MD Work Phone: [facility] 11-26-2022 14:59-0400 Body height 172.7 cm Earl Parson MD Work Phone: [facility] 11-26-2022 14:59-0400 Body mass index (BMI) [Ratio] 25.85 kg/m2 Earl Parson MD Work Phone: [facility] 11-26-2022 14:59-0400 Body weight 77.11 kg Earl Parson MD Work Phone: [facility] 11-25-2022 09:00-0400 Diastolic blood pressure 80 mm[Hg] Ha Dona PA-C Work Phone: [facility] 11-25-2022 09:00-0400 Systolic blood pressure 147 mm[Hg] Ha Dona PA-C Work Phone: [facility] 11-25-2022 08:48-0400 Body height 172.7 cm Ha Dona PA-C Work Phone: [facility] 11-25-2022 08:48-0400 Body mass index (BMI) [Ratio] 27.22 kg/m2 Ha Dona PA-C Work Phone: [facility] 11-25-2022 08:48-0400 Body weight 81.19 kg Ha Dona PA-C Work Phone: [facility] 11-25-2022 08:48-0400 Heart rate 103 /min Ha Dona PA-C Work Phone: [facility] 11-16-2022 22:39-0400 Body mass index (BMI) [Ratio] 28.3 kg/m2 [facility] 11-16-2022 22:39-0400 Body weight 84.4 kg [facility] 11-16-2022 21:10-0400 Body height 172.72 cm [facility] 11-16-2022 21:10-0400 Body temperature 98 [degF] [facility] 11-16-2022 21:10-0400 Diastolic blood pressure 79 mm[Hg] [facility] 11-16-2022 21:10-0400 Heart rate 101 /min [facility] 11-16-2022 21:10-0400 Respiratory rate 15 /min [facility] 11-16-2022 21:10-0400 SaO2% (BldA) [Mass fraction] 95 % [facility] 11-16-2022 21:10-0400 Systolic blood pressure 133 mm[Hg] [facility] 11-10-2022 09:46-0400 Body temperature 98.8 [degF] Kenny Serna MD Work Phone: [facility] 11-10-2022 09:46-0400 Diastolic blood pressure 67 mm[Hg] Kenny Serna MD Work Phone: [facility] 11-10-2022 09:46-0400 Heart rate 104 /min Kenny Serna MD Work Phone: [facility] 11-10-2022 09:46-0400 SaO2% (BldA) [Mass fraction] 93 % Kenny Serna MD Work Phone: [facility] 11-10-2022 09:46-0400 Systolic blood pressure 116 mm[Hg] Kenny Serna MD Work Phone: [facility] 11-09-2022 20:22-0400 Respiratory rate 18 /min Kenny Serna MD Work Phone: [facility] 11-06-2022 10:43-0400 Body height 172.7 cm Kenny Serna MD Work Phone: [facility] 11-06-2022 10:43-0400 Body mass index (BMI) [Ratio] 27.22 kg/m2 Kenny Serna MD Work Phone: [facility] 11-06-2022 10:43-0400 Body weight 81.19 kg Kenny Serna MD Work Phone: [facility] 10-30-2022 08:45-0500 Diastolic blood pressure 84 mm[Hg] Amandeep Loredo DO Work Phone: [facility] 10-30-2022 08:45-0500 Heart rate 76 /min Amandeep Loredo DO Work Phone: [facility] 10-30-2022 08:45-0500 Systolic blood pressure 126 mm[Hg] Amandeep Loredo DO Work Phone: [facility] 10-30-2022 07:55-0500 Body height 174 cm Amandeep Loredo DO Work Phone: [facility] 10-30-2022 07:55-0500 Body mass index (BMI) [Ratio] 26.67 kg/m2 Amandeep Loredo DO Work Phone: [facility] 10-30-2022 07:55-0500 Body temperature 97.11 [degF] mAandeep Loredo DO Work Phone: [facility] 10-30-2022 07:55-0500 Body weight 80.74 kg Amandeep Loredo DO Work Phone: [facility] 10-30-2022 07:55-0500 SaO2% (BldA) [Mass fraction] 94 % Amandeep Loredo DO Work Phone: [facility] 10-14-2022 20:17-0500 Body mass index (BMI) [Ratio] 27.6 kg/m2 Dr. Ari Sotomayor Work Phone: [facility] 10-14-2022 20:17-0500 Body weight 82.[address] Ari Sotomayor Work Phone: [facility] 10-14-2022 20:13-0500 Body height 172.[address] Ari Sotomayor Work Phone: [facility] 10-14-2022 20:13-0500 Body temperature 98.6 [degF] Dr. Ari Sotomayor Work Phone: [facility] 10-14-2022 20:13-0500 Diastolic blood pressure 100 mm[Hg] Dr. Ari Sotomayor Work Phone: [facility] 10-14-2022 20:13-0500 Heart rate 95 /min Dr. Ari Sotomayor Work Phone: [facility] 10-14-2022 20:13-0500 Respiratory rate 16 /min Dr. Ari Sotomayor Work Phone: [facility] 10-14-2022 20:13-0500 SaO2% (BldA) [Mass fraction] 98 % Dr. Ari Sotomayor Work Phone: [facility] 10-14-2022 20:13-0500 Systolic blood pressure 161 mm[Hg] Dr. Ari Sotomayor Work Phone: [facility] 10-13-2022 08:38-0500 Body height 174 cm Kenny Serna MD Work Phone: [facility] 10-13-2022 08:38-0500 Body mass index (BMI) [Ratio] 25.47 kg/m2 Kenny Serna MD Work Phone: [facility] 10-13-2022 08:38-0500 Body weight 77.11 kg Kenny Serna MD Work Phone: [facility] 10-03-2022 11:00-0500 Diastolic blood pressure 90 mm[Hg] Kenny Serna MD Work Phone: [facility] 02-10-2023 11:00-0500 Heart rate 100 /min Kenny Serna MD Work Phone: [facility] 10-03-2022 11:00-0500 SaO2% (BldA) [Mass fraction] 97 % Kenny Serna MD Work Phone: [facility] 10-03-2022 11:00-0500 Systolic blood pressure 151 mm[Hg] Kenny Serna MD Work Phone: [facility] 10-03-2022 08:43-0500 Respiratory rate 12 /min Kenny Serna MD Work Phone: [facility] 10-03-2022 06:58-0500 Body temperature 97 [degF] Kenny Serna MD Work Phone: [facility] 09-23-2022 17:12-0500 Diastolic blood pressure 89 mm[Hg] Dr. Ari Sotomayor Work Phone: [facility] 09-23-2022 17:12-0500 Heart rate 87 /min Dr. Ari Sotomayor Work Phone: [facility] 09-23-2022 17:12-0500 Respiratory rate 17 /min Dr. Ari Sotomayor Work Phone: [facility] 09-23-2022 17:12-0500 SaO2% (BldA) [Mass fraction] 96 % Dr. Ari Sotomayor Work Phone: [facility] 09-23-2022 17:12-0500 Systolic blood pressure 152 mm[Hg] Dr. Ari Sotomayor Work Phone: [facility] 09-23-2022 13:11-0500 Body height 175.[address] Ari Sotomayor Work Phone: [facility] 09-23-2022 13:11-0500 Body mass index (BMI) [Ratio] 25.8 kg/m2 Dr. Ari Sotomayor Work Phone: [facility] 09-23-2022 13:11-0500 Body temperature 98 [degF] Dr. Ari Sotomayor Work Phone: [facility] 09-23-2022 13:11-0500 Body weight 79.[address] Ari Sotomayor Work Phone: [facility] 08-24-2022 18:00-0500 Diastolic blood pressure 74 mm[Hg] Dr. Ari Sotomayor Work Phone: [facility] 08-24-2022 18:00-0500 Heart rate 82 /min Dr. Ari Sotomayor Work Phone: [facility] 08-24-2022 18:00-0500 Respiratory rate 18 /min Dr. Ari Sotomayor Work Phone: [facility] 08-24-2022 18:00-0500 SaO2% (BldA) [Mass fraction] 99 % Dr. Ari Sotomayor Work Phone: [facility] 08-24-2022 18:00-0500 Systolic blood pressure 132 mm[Hg] Dr. Ari Sotomayor Work Phone: [facility] 08-24-2022 11:37-0500 Body height 175.[address] Ari Sotomayor Work Phone: [facility] Work Phone: 08-24-2022 11:37-0500 Body mass index (BMI) [Ratio] 26.6 kg/m2 Dr. Ari Sotomayor Work Phone: [facility] 08-24-2022 11:37-0500 Body temperature 96.8 [degF] Dr. Ari Sotomayor Work Phone: [facility] 08-24-2022 11:37-0500 Body weight 81.[address] Ari Sotomayor Work Phone: [facility] 08-20-2022 22:55-0500 Heart rate 88 /min Dr. Ari Sotomayor Work Phone: [facility] 08-20-2022 22:55-0500 Respiratory rate 20 /min Dr. Ari Sotomayor Work Phone: [facility] 08-20-2022 22:55-0500 SaO2% (BldA) [Mass fraction] 98 % Dr. Ari Sotomayor Work Phone: [facility] 08-20-2022 20:20-0500 Body height 175.[address] Ari Sotomayor Work Phone: [facility] Work Phone: 08-20-2022 20:20-0500 Body mass index (BMI) [Ratio] 26.6 kg/m2 Dr. Ari Sotomayor Work Phone: [facility] 08-20-2022 20:20-0500 Body temperature 97.9 [degF] Dr. Ari Sotomayor Work Phone: [facility] 08-20-2022 20:20-0500 Body weight 81.[address] Ari Sotomayor Work Phone: [facility] 08-20-2022 20:20-0500 Diastolic blood pressure 74 mm[Hg] Dr. Ari Sotomayor Work Phone: [facility] 08-20-2022 20:20-0500 Systolic blood pressure 125 mm[Hg] Dr. Ari Sotomayor Work Phone: [facility] 07-18-2022 21:54-0500 Body mass index (BMI) [Ratio] 26.6 kg/m2 Dr. Ari Sotomayor Work Phone: [facility] 07-18-2022 21:54-0500 Body temperature 97.7 [degF] Dr. Ari Sotomayor Work Phone: [facility] 07-18-2022 21:54-0500 Body weight 81.[address] Ari Sotomayor Work Phone: [facility] 07-18-2022 21:54-0500 Diastolic blood pressure 100 mm[Hg] Dr. Ari Sotomayor Work Phone: [facility] 07-18-2022 21:54-0500 Heart rate 109 /min Dr. Ari Sotomayor Work Phone: [facility] 07-18-2022 21:54-0500 Respiratory rate 19 /min Dr. Ari Sotomayor Work Phone: [facility] 07-18-2022 21:54-0500 SaO2% (BldA) [Mass fraction] 97 % Dr. Ari Sotomayor Work Phone: [facility] 07-18-2022 21:54-0500 Systolic blood pressure 139 mm[Hg] Dr. Ari Sotomayor Work Phone: [facility] 07-11-2022 08:44-0500 Body height 174 cm Kenny Serna MD Work Phone: [facility] 07-11-2022 08:44-0500 Body mass index (BMI) [Ratio] 25.47 kg/m2 Kenny Serna MD Work Phone: [facility] 07-11-2022 08:44-0500 Body weight 77.11 kg Kenny Serna MD Work Phone: [facility] 07-11-2022 08:44-0500 Diastolic blood pressure 81 mm[Hg] Kenny Serna MD Work Phone: [facility] 07-11-2022 08:44-0500 Systolic blood pressure 117 mm[Hg] Kenny Serna MD Work Phone: [facility] 07-02-2022 10:08-0500 Body mass index (BMI) [Ratio] 27 kg/m2 Dr. Ari Sotomayor Work Phone: [facility] 07-02-2022 10:08-0500 Body weight [address] Ari Sotomayor Work Phone: [facility] 06-28-2022 22:47-0400 Respiratory rate 16 /min [facility] 06-28-2022 21:30-0400 Body height 175.26 cm [facility] Work Phone: 06-28-2022 21:30-0400 Body mass index (BMI) [Ratio] 26.6 kg/m2 [facility] 06-28-2022 21:30-0400 Body temperature 97.5 [degF] [facility] 06-28-2022 21:30-0400 Body weight 81.64 kg [facility] 06-28-2022 21:30-0400 Diastolic blood pressure 99 mm[Hg] [facility] 06-28-2022 21:30-0400 Heart rate 106 /min [facility] 06-28-2022 21:30-0400 SaO2% (BldA) [Mass fraction] 93 % [facility] 06-28-2022 21:30-0400 Systolic blood pressure 140 mm[Hg] [facility] 05-04-2022 19:26-0400 Body height 175.26 cm [facility] Work Phone: 05-04-2022 19:26-0400 Body mass index (BMI) [Ratio] 25.1 kg/m2 [facility] Work Phone: 05-04-2022 19:26-0400 Body temperature 98.9 [degF] [facility] Work Phone: 05-04-2022 19:26-0400 Body weight 77.11 kg [facility] Work Phone: 05-04-2022 19:26-0400 Diastolic blood pressure 78 mm[Hg] [facility] Work Phone: 05-04-2022 19:26-0400 Heart rate 78 /min [facility] Work Phone: 05-04-2022 19:26-0400 Respiratory rate 16 /min [facility] Work Phone: 05-04-2022 19:26-0400 SaO2% (BldA) [Mass fraction] 96 % [facility] Work Phone: 05-04-2022 19:26-0400 Systolic blood pressure 158 mm[Hg] [facility] Work Phone: 03-21-2022 22:28-0400 Respiratory rate 16 /min [facility] Work Phone: 03-21-2022 19:15-0400 Body height 175.26 cm [facility] Work Phone: 03-21-2022 19:15-0400 Body mass index (BMI) [Ratio] 26.6 kg/m2 [facility] Work Phone: 03-21-2022 19:15-0400 Body temperature 97.9 [degF] [facility] Work Phone: 03-21-2022 19:15-0400 Body weight 81.64 kg [facility] Work Phone: 03-21-2022 19:15-0400 Diastolic blood pressure 78 mm[Hg] [facility] Work Phone: 03-21-2022 19:15-0400 Heart rate 88 /min [facility] Work Phone: 03-21-2022 19:15-0400 SaO2% (BldA) [Mass fraction] 98 % [facility] Work Phone: 03-21-2022 19:15-0400 Systolic blood pressure 135 mm[Hg] [facility] Work Phone: 01-27-2022 20:06-0400 Body mass index (BMI) [Ratio] 28 kg/m2 [facility] Work Phone: 01-27-2022 20:06-0400 Body temperature 98.2 [degF] [facility] Work Phone: 01-27-2022 20:06-0400 Body weight 86.18 kg [facility] Work Phone: 01-27-2022 20:06-0400 Diastolic blood pressure 96 mm[Hg] [facility] Work Phone: 01-27-2022 20:06-0400 Heart rate 95 /min [facility] Work Phone: 01-27-2022 20:06-0400 Respiratory rate 16 /min [facility] Work Phone: 01-27-2022 20:06-0400 SaO2% (BldA) [Mass fraction] 95 % [facility] Work Phone: 01-27-2022 20:06-0400 Systolic blood pressure 171 mm[Hg] [facility] Work Phone: 05-15-2020 06:18-0400 Body Temperature 98.6 [degF] [facility] [place] 05-15-2020 06:18-0400 BP Diastolic 78 mm[Hg] [facility] [place] 05-15-2020 06:18-0400 BP Systolic 126 mm[Hg] [facility] [place] 05-15-2020 06:18-0400 Pulse (Heart Rate) 88 /min [facility], [place] 05-15-2020 06:18-0400 Pulse Oximetry 95 % [facility] [place] 05-15-2020 06:18-0400 Respiratory Rate 14 /min [facility] [place] 05-13-2020 18:38-0400 BMI (Body Mass Index) 31.01 kg/m2 [facility], [place] 05-13-2020 18:38-0400 Body weight 95.25 kg [facility] [place] 05-13-2020 18:38-0400 Height 175.3 cm [facility] [place] 01-05-2020 17:35-0400 Body temperature 37.0 Deg [facility] Comment on above: Performed By: #### CMP #### [facility] [address] [id number] 05-13-2019 02:21-0400 BP Diastolic 81 mm[Hg] [facility] , [place] 05-13-2019 02:21-0400 BP Systolic 128 mm[Hg] [facility] , [place] 05-13-2019 02:21-0400 Pulse (Heart Rate) 88 /min [facility] 05-13-2019 02:21-0400 Pulse Oximetry 97 % [facility] , [place] 05-13-2019 02:21-0400 Respiratory Rate 18 /min [facility] 05-12-2019 19:02-0400 BMI (Body Mass Index) 30.41 kg/m2 [facility] 05-12-2019 19:02-0400 Body Temperature 97.81 [degF] [facility] 05-12-2019 19:02-0400 Body weight 90.72 kg [facility] , [place] 05-12-2019 19:02-0400 Height 172.7 cm [facility] , [place] Encounters Encounter Date Encounter Type Care Provider [...] End: 09-05-2024 Emergency department patient visit Narciso Baron Facility:[facility] Start: 08-07-2024 End: 08-07-2024 Emergency department patient visit Jordin Chisholm Facility:[facility] Start: 06-29-2024 End: 06-29-2024 Emergency department patient visit Amandeep Loredo Facility:[facility] Start: 05-11-2024 End: 05-12-2024 [facility] Start: 01-30-2024 End: 01-30-2024 ambulatory Cheri Kuhn RN [facility] Line Comment on above: Advice/health educat ion Start: 12-01-2023 End: 12-01-2023 Emergency department patient visit [facility] Work Phone: Start: 11-18-2023 End: 11-18-2023 Emergency department patient visit [facility] Work Phone: Start: 10-07-2023 End: 10-07-2023 Emergency department patient visit [facility] Work Phone: Start: 09-01-2023 ambulatory Alva Chauhan Cl inical Communication Start: 09-01-2023 Patient encounter procedure Alva Blas RN [facility] Start: 07-27-2023 End: 07-27-2023 Office outpatient visit 15 minutes Amandeep Lroedo DO Work Phone: [facility] Comment on above: Chronic superficial gastritis without bleeding (Primary Dx); Seizure (HCC) Start: 07-06-2023 End: 07-06-2023 Subsequent hospital visit by physician Kenny Serna MD Work Phone: [facility] X-ray Comment on above: Status post lumbar s pine surgery for decompression of spinal cord Start: 07-06-2023 End: 07-06-2023 Subsequent hospital visit by physician Shadia Kovacs PA-C Work Phone: [facility] Comment on above: Cervicalgia Start: 05-11-2023 Transcribe Orders Shadia Morales to ADA Work Phone: [facility] Central Scheduling Comment on above: Cervicalgia (Primary Dx) Start: 03-06-2023 End: 03-06-2023 Emergency department patient visit BELINDA COVARRUBIAS MD Facility:[facility] Start: 03-05-2023 End: 03-06-2023 Emergency department patient visit BELINDA COVARRUBIAS MD [facility] Start: 02-15-2023 End: 02-15-2023 [facility] Start: 11-25-2022 End: 11-25-2022 Subsequent hospital visit by physician [facility] Ed Xr Portable [facility] X-Ray Comment on above: Arrived Start: 11-25-2022 End: 11-27-2022 Emergency department patient visit Earl Parson MD Work Phone: [facility] 4N MED SURG Comment on above: Syncope, unspecified syncope type (Primary Dx); History of spinal surgery; Dehydration; Diarrhea, unspecified type; Seizure (HCC); Nausea and vomiting, unspecified vomiting type; Right leg pain; Status post spinal surgery; Lumbar radiculopathy Start: 11-25-2022 End: 11-25-2022 Postop follow up visit related to original px Ha Carcamo PA-C Work Phone: [facility] Comment on above: Status post spinal s urgery (Primary Dx); Lumbar radiculopathy Start: 11-24-2022 Telephone encounter Kenny durand MD Work Phone: [facility] Comment on above: Reschedule Start: 11-16-2022 End: 11-17-2022 Emergency department patient visit [facility] Start: 11-13-2022 Telephone encounter Brenda garcia [employer] Work Phone: [facility] Orthopedics Comment on above: Post-op Call Start: 11-06-2022 End: 11-06-2022 Subsequent hospital visit by physician [facility] Surgery C-Arm C [facility] X-Ray Comment [...] TELEMETRY Start: 11-03-2022 Telephone encounter Brenda garcia NP Work Phone: [facility] Orthopedics Start: 10-30-2022 End: 10-30-2022 Subsequent hospital visit by physician [facility] Xr Exam Room 3 [facility] Radiology Comment on above: Mild intermittent as thma, unspecified whether complicated; Cough, unspecified type Start: 10-30-2022 End: 10-30-2022 Office outpatient visit 25 minutes Amandeep Loredo DO Work Phone: [facility] Medicine Comment on above: Lumbosacral radiculo adonay due to degenerative joint disease of spine (Primary Dx); Mild intermittent asthma, unspecified whether complicated; Gastroesophageal reflux disease without esophagitis; Cough, unspecified type; Preoperative clearance; Labile essential hypertension; Migraine without status migrainosus, not intractable, unspecified migraine type Start: 10-30-2022 End: 10-30-2022 Preoperative state Amandeep Loredo DO Work Phone: [facility] Start: 10-28-2022 ambulatory Brenda Spence Work Phone: [facility] Comment on above: Lumbar radiculopathy (Primary Dx) Start: 10-27-2022 Telephone encounter Kenny durand MD Work Phone: [facility] Comment on above: Nurse Navigation Start: 10-14-2022 End: 10-14-2022 Emergency department patient visit Dr. Ari Sotomayor Work Phone: [facility]Emergency Department Start: 10-13-2022 End: 10-13-2022 Office outpatient visit 25 minutes Kenny Serna MD Work Phone: [facility] [place] Comment on above: Lumbar stenosis with neurogenic claudication (Primary Dx); Lumbar pain; Fusion of spine of lumbar region Start: 10-03-2022 End: 10-03-2022 Subsequent hospital visit by physician Kenny Serna MD Work Phone: [facility] Special Procedures Comment on above: Spinal stenosis, lum bar region with neurogenic claudication Start: 10-02-2022 Telephone encounter Carlie FRANCISCO Special Procedures Start: 10-01-2022 Telephone encounter Kenny durand MD Work Phone: [facility] [place]am Comment on above: nurse triage Start: 09-25-2022 End: 09-25-2022 Subsequent hospital visit by physician [facility] Exam Room [address] [facility] [address] Comment on above: Canceled (Patient) Start: 09-23-2022 End: 09-23-2022 Emergency department patient visit Dr. Ari Sotomayor Work Phone: [facility]Emergency Department Start: 08-24-2022 End: 08-24-2022 Emergency department patient visit Dr. Ari Sotomayor Work Phone: [facility]Emergency Department Start: 08-20-2022 End: 08-21-2022 Emergency department patient visit Dr. Ari Sotomayor Work Phone: [facility]Emergency Department Start: 07-18-2022 End: 07-19-2022 Emergency department patient visit Dr. Ari Sotomayor Work Phone: [facility]Emergency Department Start: 07-11-2022 Transcribe Orders Kenny metz MD Work Phone: [facility] [place] Start: 07-11-2022 End: 07-11-2022 Office outpatient new 45 minutes Kenny Serna MD Work Phone: [facility] [place] Comment on above: Lumbar stenosis with neurogenic claudication (Primary Dx); Lumbar pain Start: 07-02-2022 End: 07-02-[address] Ari Sotomayor Work Phone: [facility] Orthopaedic Specia Start: 06-28-2022 End: 06-28-2022 Emergency department patient visit [facility] Start: 05-04-2022 End: 05-04-2022 Emergency department patient visit [facility] Start: 04-02-2022 End: 04-02-2022 Patient encounter procedure [facility]Laboratory Start: 03-21-2022 End: 03-21-2022 Emergency department patient visit [facility] Start: 01-27-2022 End: 01-27-2022 Emergency department patient visit [facility] Start: 05-13-2020 End: 05-15-2020 Evaluation and management of inpatient Augustine Rodriguez Work Phone: [facility] 7 MED SURG Comment on above: Other constipation ( Primary Dx); Gastroparesis; Constipation, unspecified constipation type; Irritable bowel syndrome with constipation Start: 09-13-2019 End: 09-13-2019 Subsequent hospital visit by physician Ari Sotomayor DO Work Phone: [facility] Comment on above: Nausea and vomiting, intractability of vomiting not specified, unspecified vomiting type; Painful urination; Flank pain Start: 05-12-2019 End: 05-13-2019 Emergency department patient visit Luis Angel Meng Work Phone: [facility] Emergency Dept Comment on above: Bilateral low [...] Start: 11-27-2022 Comprehensive metabo lic panel Nguyen QUINTANA Work Phone: Start: 11-26-2022 Echo tthrc r-t 2d w/ wom-mode compl spec&colr d Nguyen QUINTANA Work Phone: Start: 11-26-2022 Dup-scan xtr veins c omplete bilateral study Nguyen QUINTANA Work Phone: Start: 11-26-2022 Comprehensive metabo lic panel Nguyen QUINTANA Work Phone: Start: 11-26-2022 Iaad ia hiv-1 ag w/h iv-1 & hiv-2 antbdy single Nguyen Miranda LILIAN Work Phone: Start: 11-26-2022 MEDICATION ASSISTED TREATMENT PANEL Nguyen Miranda LILIAN Work Phone: Start: 11-25-2022 Syphilis test non-tr eponemal antibody qual Nguyen Miranda LILIAN Work Phone: Start: 11-25-2022 Iadna respiratry pro be & rev trnscr 12-25 target Nguyen Miranda LILIAN Work Phone: Start: [...] [Units/v olume] in Serum or Plasma Nguyen Miranda LILIAN Work Phone: Start: 11-25-2022 Ecg routine ecg w/le ast 12 lds trcg only w/o i&r Earl Parson MD Work Phone: Start: 11-25-2022 PULSE OXIMETRY, CONTINUOUS Earl Parson MD Work Phone: Start: 11-09-2022 Basic metabolic pane l calcium total Mark Jarquin MD Work Phone: Start: 11-08-2022 Blood count complete auto&auto difrntl wbc Aj Garcia MD Work Phone: Start: 11-07-2022 Blood count [...] Radiologic exam ches t 2 views Amandeep Loredo DO Work Phone: Start: 10-30-2022 Ecg routine [...] Start: 05-14-2020 Blood count complete automated Aba Subichin Work Phone: Start: 05-13-2020 Urnls dip stick/tabl et rgnt auto w/o microscopy Cari Mobley Work Phone: Start: 05-13-2020 Blood typing serologic abo Cari Mobley Work Phone: Start: 05-13-2020 CT Abdomen and Pelvi s W contrast IV Negar Rodriguez Work Phone: Start: 05-13-2020 BLOOD OCCULT STOOL SCREEN #1 Negar Rodriguez Work Phone: Start: 05-13-2020 Assay of lactate Kendalleonides Rodriguez Work Phone: Start: 05-13-2020 Assay of lipase Sarah Rodriguez Work Phone: Start: 05-13-2020 Basic metabolic pane l calcium total Negar Rodriguez Work Phone: Start: 05-13-2020 Hepatic function panel Negar Rodriguez Work Phone: Start: 05-13-2020 Prothrombin time Kendal Rodriguez Work Phone: Start: 05-13-2020 Blood count complete auto&auto difrntl wbc Negar Rodriguez Work Phone: Start: 09-13-2019 Ct abdomen & pelvis w/o contrast material Ari Jeanine Pancagracieo DO Work Phone: Start: 09-13-2019 Basic metabolic pane l calcium total Ari Jeanine Pancasso DO Work Phone: Start: 05-12-2019 Iadna-dna/rna gi pth gn multiplex probe tq 12-25 Edward Vieirason Work Phone: Start: 05-12-2019 Radex hip unilateral [...] spine lumbosac ral 2/3 views Luis Angel A Gombash Work Phone: Cholecystectomy BELINDA Lechuga MD [...] or older (1 - 1-dose 60+ series) [facility] Start: 04-14-2025 [facility] Start: 04-14-2025 [facility] Start: 03-14-2025 [facility] Start: 03-14-2025 XR Thoracic spine Views [facility] Start: 03-14-2025 Xray thoracic spine Thoracic Spine 2 Views [facility] Start: 01-05-2025 [facility] Start: 10-21-2024 [facility] Start: 12-01-2023 [facility] Start: 11-18-2023 [facility] Start: 10-31-2023 Diabetes mellitus screening Diabetes Screening [facility] Start: 09-02-2023 End: 09-02-2023 Patient encounter procedure 09/02/2023 8:40 AM EST Office Visit [facility] Medicine [address] [place] [address] Leandra Berger PA-C [address] [place] [address] [facility] Start: 04-24-2023 COVID-19 Vaccine ( season) COVID-19 Vaccine ( season) [facility] Start: 04-24-2023 Influenza vaccination S [facility] Start: 02-04-2023 End: 02-04-2023 Patient encounter procedure 02/04/2023 Office Visit Orthopedic Surgery [facility] Serna [facility] [address] [facility] [address] [place], [place] [id number] [facility] Start: 02-04-2023 End: 02-04-2023 Documentation procedure 02/04/2023 Documentation Orthopedic Surgery [facility] Start: 12-17-2022 End: 12-17-2022 Patient encounter procedure 12/17/2022 Office Visit Orthopedic Surgery Kenny Serna MD [address] [facility] [address] [place], [place] [address] [facility] Start: 11-26-2022 End: 11-26-2022 Patient encounter procedure 11/26/2022 Office Visit Orthopedic Surgery Ha Carcamo PA-C [address] [facility] [address] [place], [place] [id number] [facility] Start: 11-26-2022 End: 11-26-2022 Documentation procedure 11/26/2022 Documentation Orthopedic Surgery [facility] Start: 11-25-2022 End: 11-25-2022 Patient encounter procedure 11/25/2022 Office Visit Orthopedic Surgery Ha Carcamo PA-C [address] [facility] [place] [address] [facility] Start: 11-25-2022 End: 11-25-2022 Documentation procedure 11/25/2022 Documentation Orthopedic Surgery [facility] Start: 11-06-2022 End: 11-06-2022 Admission to same day surgery center 11/06/2022 Surgery Procedural Kenny Serna MD [address] [facility] [address] [place] [address] ANTERIOR LUMBAR INTERBODY FUSION L3/4 VIA RETROPERITONEAL APPROACH POSTERIOR LATERAL FUSION WITH INSTRUMENTATION L3/L4 LUMBAR L3/L4 LAMINECTOMY [03729 (CPT )] [facility] MAIN OR Comment on above: ANTERIOR LUMBAR INTE RBODY FUSION L3/4 VIA RETROPERITONEAL APPROACH POSTERIOR LATERAL FUSION WITH INSTRUMENTATION L3/L4 LUMBAR L3/L4 LAMINECTOMY [26178 (CPT )] Start: 11-06-2022 End: 11-06-2022 Anesthesia consultation 11/06/2022 Anesthesia Event Procedural Ivy Shelby, BLAYNE [address] [place] [address] [facility] MAIN OR Start: 11-06-2022 End: 11-06-2022 Arthrodesis anterior interbody lumbar ANTERIOR LUMBAR MICRODISCECTOMY AND FUSION XLIF Radiculopathy, lumbar region Spinal stenosis of lumbar region Spondylolisthesis, lumbar region Other intervertebral disc degeneration, lumbar region 11/06/2022 12:30 PM EDT [facility] Operating Room Start: 11-06-2022 End: 11-06-2022 Srinivasan facetectomy & foramotomy 1 segment lumbar POSTERIOR LUMBAR LAMINECTOMY FACETECTOMY FORAMINOTOMY AND DECOMPRESSION Radiculopathy, lumbar region Spinal stenosis of lumbar region Spondylolisthesis, lumbar region Other intervertebral disc degeneration, lumbar region 11/06/2022 12:30 PM EDT [facility] Operating Room Start: 11-06-2022 Subsequent hospital visit by physician 11/06/2022 Hospital Encounter Procedural Kenny Serna MD [address] [facility] [address] [place] [address] [facility] MAIN OR Start: 10-31-2022 End: 10-31-2022 Admission to [facility] Pre-Admit Testing Start: 10-30-2022 End: 10-30-2022 Patient encounter procedure 10/30/2022 Office Visit Family Medicine Amandeep Loredo DO [address] [place] [phone] [facility] Start: 10-28-2022 End: 10-29-2023 Comprehensive metabolic 1997 panel - Serum or Plasma Comprehensive metabolic panel Lab Routine Lumbar radiculopathy Expected: 10/28/2022 (Approximate), Expires: 10/29/2023 [facility]: Comment on above: Expected: 10/28/2022 (Approximate), Expires: 10/29/2023 Start: 10-28-2022 End: 10-29-2023 Hemoglobin A1c/Hemoglobin.total in Blood Hemoglobin A1c Lab Routine Lumbar radiculopathy Expected: 10/28/2022 (Approximate), Expires: 10/29/2023 [facility] Comment on above: Expected: 10/28/2022 (Approximate), Expires: 10/29/2023 Start: 10-28-2022 End: 10-29-2023 Methicillin resistant Staphylococcus aureus (MRSA) DNA [Presence] in Nose by KRISTEN with probe detection MRSA by PCR Microbiology Routine Lumbar radiculopathy Expected: 10/28/2022 (Approximate), Expires: 10/29/2023 [facility] Comment on above: Expected: 10/28/2022 (Approximate), Expires: 10/29/2023 Start: 10-13-2022 End: 10-13-2023 25-hydroxyvitamin D3 [Mass/volume] in Serum or Plasma Vitamin D 25 hydroxy Lab Routine Lumbar stenosis with neurogenic claudication Expected: 10/13/2022 (Approximate), Expires: 10/13/2023 [facility] Comment on above: Expected: 10/13/2022 (Approximate), Expires: 10/13/2023 Start: 10-13-2022 End: 10-13-2023 CBC W Auto Differential panel - Blood CBC auto differential Lab Routine Lumbar stenosis with neurogenic claudication Expected: 10/13/2022 (Approximate), Expires: 10/13/2023 [facility]: Comment on above: Expected: 10/13/2022 (Approximate), Expires: 10/13/2023 Start: 10-13-2022 End: 10-13-2023 Comprehensive metabolic 1997 panel - Serum or Plasma Comprehensive metabolic panel Lab Routine Lumbar stenosis with neurogenic claudication Expected: 10/13/2022 (Approximate), Expires: 10/13/2023 [facility] Comment on above: Expected: 10/13/2022 (Approximate), Expires: 10/13/2023 Start: 10-13-2022 End: 10-13-2023 Hemoglobin A1c/Hemoglobin.total in Blood Hemoglobin A1c Lab Routine Lumbar stenosis with neurogenic claudication Expected: 10/13/2022 (Approximate), Expires: 10/13/2023 [facility] Comment on above: Expected: 10/13/2022 (Approximate), Expires: 10/13/2023 Start: 10-13-2022 End: 10-13-2022 Patient encounter procedure 10/13/2022 Office Visit Orthopedic Surgery Kenny Serna MD [address] [place] [id number] [facility] [place] Start: 10-03-2022 End: 10-03-2022 Patient encounter procedure 10/03/2022 Appointment Radiology [facility] Start: 09-25-2022 Subsequent hospital visit by physician 09/25/2022 Hospital Encounter Radiology [facility] Start: 09-23-2022 [facility] Start: 08-20-2022 [facility] Start: 06-28-2022 Plain x-ray of hand Hand Min 3 Views [facility] Work Phone: Start: 06-28-2022 XR Hand GE 3 Views [facility] Work Phone: Start: 04-24-2022 Influenza vaccination Influenza Vacc ine (#1) [facility] Start: 04-02-2022 Procedure [facility] Work Phone: Start: 05-13-2021 Screening for malign ant neoplasm of colon [facility] Start: 05-11-2021 Breast cancer screen Breast cancer [facility], [place] Start: 09-13-2020 Influenza vaccination Flu vaccine (# 1) [facility] Work Phone: Comment on above: Postponed from 04/24 (Patient Refused) Start: 05-21-2020 End: 05-21-2020 Office Visit 05/21/2020 Office Visit Family Medicine GertrudeAmandeep, DO [address], [place] [phone] [facility] Start: 04-24-2020 Influenza vaccination Flu vaccine (# 1) [place], [place] Start: 04-24-2019 Influenza vaccination Flu vaccine (# 1) [place], [place] Start: 2019 Breast cancer screen Breast cancer hola castro [facility] Work Phone: Start: 2019 Colon cancer screen colonoscopy Colon cancer screen colonoscopy [place], [place] Start: 2019 Screening for malign ant neoplasm of breast Breast cancer screen [place], [place] Start: 2019 Screening for malign ant neoplasm of colon Colon cancer screen colonoscopy [place], [place] Start: 2019 Shingles (RZV) Vacci ne (1 of 2) Shingles (RZV) Vaccine (1 of 2) [facility] Start: 2019 Shingles Vaccine (1 of 2) Shingles Vaccine (1 of 2) [place], [place] Start: 2019 Zoster Vaccines (1 of 2) Zoster Vacc ila (1 of 2) [facility] Start: 09-24-2014 Annual wellness visit Annual [facility] Visit (G0438) [facility] Start: 04-24-2014 Pneumococcal Vaccine : Pediatrics (0 to 5 Years) and At-Risk Patients (6 to 64 Years) (2 - PCV) Pneumococcal Vaccine: Pediatrics (0 to 5 Years) and At-Risk Patients (6 to 64 Years) (2 - PCV) [facility] Start: 04-24-2014 Pneumococcal Vaccine : Pediatrics (0 to 5 Years) and At-Risk Patients (6 to 64 Years) (2 of 2 - PCV) Pneumococcal Vaccine: Pediatrics (0 to 5 Years) and At-Risk Patients (6 to 64 Years) (2 of 2 - PCV) [facility] Start: 2014 Cholesterol [Mass/volume] in Serum or Plasma Cholesterol [facility] Start: 2014 Screening for malign ant neoplasm of colon [facility] Start: 2009 Lipid panel Lipid screen [place], [place] Start: 2009 Lipid screen Lipid screen [place], [place] Start: 2009 Screening for malign ant neoplasm of breast [facility] Start: 1990 Screening for malign ant neoplasm of cervix Pap Smear [facility] Start: 01-08-1988 DTaP/Tdap/Td vaccine (1 - Tdap) DTaP/Tdap/Td vaccine (1 - Tdap) [place], [place] Start: 01-08-1988 DTaP/Tdap/Td Vaccine s (1 - Tdap) DTaP/Tdap/Td Vaccines (1 - Tdap) [facility] Start: 01-08-1988 Hepatitis A (HAV) Vaccine (optional start 19+ years) Hepatitis A (HAV) Vaccine (optional start 19+ years) [facility] Start: 01-08-1988 Hepatitis A Vaccines (1 of 2 - Risk 2-dose series) Hepatitis A Vaccines (1 of 2 - Risk 2-dose series) [facility] Start: 01-08-1988 Hepatitis B vaccination Hepati tis B (HBV) Vaccine (1 of 3 - 19+ 3-dose series) [facility] Start: 1987 Diabetes mellitus screening Diabetes Screening [facility] Start: 1987 Hepatitis C screening S [facility] Start: 1987 Tetanus + diphtheria + acellular pertussis vaccine (product) Tdap Booster [facility] Start: 01-08-1984 HIV screen HIV screen [place], [place] Start: 01-08-1984 HIV screening [facility] Start: 1981 Depresssion Monitoring Depresssion M onitoring [facility] Start: 01-08-1980 DTaP/Tdap/Td vaccine (1 - Tdap) DTaP/Tdap/Td vaccine (1 - Tdap) [facility] Work Phone: Start: 1970 Hepatitis A Vaccines (1 of 2 - Risk 2-dose series) Hepatitis A Vaccines (1 of 2 - Risk 2-dose series) [facility] Start: 1970 MMR Vaccines (1 of 1 - Standard series) MMR Vaccines (1 of 1 - Standard series) [facility] Start: 1969 COVID-19 Vaccine (#1) COVID-19 Vacci ne (#1) [facility] Start: 1969 Examination of skin Derm Melanoma Sk in Check [facility] Start: 1969 Hepatitis B Vaccines (1 of 3 - 3-dose series) Hepatitis B Vaccines (1 of 3 - 3-dose series) [facility] Start: 1969 HIV screening HIV Screening [facility] Start: 1969 Lipid panel [facility]id Panel [facility] [facility] Start: 1970 Medicare Advantage Annual Wellness Visit (AWV) Medicare Advantage Annual Wellness Visit (AWV) [facility] Start: 1970 Screening for malign ant neoplasm of colon [facility] Basic Metabolic Pane l w/ Reflex to MG Basic Metabolic Panel w/ Reflex to MG Lab Routine Daily until discontinued starting 05/14/2020, 2 completed [employer] Comment on above: Daily until disconti nued starting 05/14/2020, 2 completed CBC CBC Lab Routine Daily until discontinued starting 05/14/2020, 2 completed [employer] Comment on above: Daily until disconti nued starting 05/14/2020, 2 completed End: 09-13-2019 CT ABDOMEN PELVIS WO CONTRAST Additional Contrast? Radiologist Recommendation CT ABDOMEN PELVIS WO CONTRAST Additional Contrast? Radiologist Recommendation Imaging STAT Painful urination Flank pain 1 Occurrences starting 09/13/2019 until 09/13/2019 [facility] Work Phone: Comment on above: 1 Occurrences starti ng 09/13/2019 until 09/13/2019 OUTSIDE PROCEDURE SCAN OUTSIDE P ROCEDURE SCAN Procedures Ordered: 10/30/2022 [facility] Comment on above: Ordered: 10/30/2022 OUTSIDE PROCEDURE SCAN OUTSIDE P ROCEDURE SCAN Procedures Ordered: 09/24/2022 [facility] Comment on above: Ordered: 09/24/2022 OUTSIDE PROCEDURE SCAN OUTSIDE P ROCEDURE SCAN Procedures Ordered: 07/06/2023 [facility] Comment on above: Ordered: 07/06/2023 Oxygen therapy [[facility] Data Set] Initiate Oxygen Therapy Protocol Respiratory Care Routine Daily until discontinued starting 05/14/2020 [employer] Comment on above: Daily until disconti nued starting 05/14/2020 [facility] Work Phone: Patient referral [facility] Work Phone: Vitamin C Vitamin C Lab ST AT 11/26/2022 4:39 AM EDT [facility] [employer] Work Phone: End: 07-06-2023 XR Lumbar spine Views W flexion and W extension [facility] [employer] Work Phone: Comment on above: Once for 1 Occurrenc es starting 07/06/2023 until 07/06/2023 Immunizations Immunization Date Immunization Notes Care Provider Fa parveen 05-05-2018 Influenza virus vaccine W [facility] 05-05-2018 influenza virus vacc ine, unspecified formulation Ari Sotomayor DO Work Phone: [facility] Work Phone: 05-05-2018 influenza, seasonal, injectable Kenny Serna MD Work Phone: [facility] 05-05-2018 influenza, seasonal, injectable, preservative free Kenny Serna MD Work Phone: [facility] 07-24-2016 influenza virus vacc ine, unspecified formulation Ari Sotomayor DO Work Phone: [facility] 07-24-2016 influenza, injectabl e, quadrivalent, preservative free [facility] 07-24-2016 influenza, seasonal, injectable [facility] 04-24-2013 Influenza virus vaccine [facility] 04-24-2013 influenza virus vacc ine, unspecified formulation Ari Sotomayor DO Work Phone: [facility] Work Phone: 04-24-2013 influenza, seasonal, injectable Kenny Serna MD Work Phone: [facility] 04-24-2013 influenza, seasonal, injectable, preservative free Kenny Serna MD Work Phone: [facility] 04-24-2013 pneumococcal polysaccharide vaccine, 23 valent Ari Sotomayor DO Work Phone: [facility] Work Phone: 04-24-2013 Pneumococcal Vaccine [facility] Work Phone: 04-24-2013 pneumococcal vaccine , unspecified formulation [facility] Payers Date Payer Category Payer Unknown [id number] 2024 Self-pay [id number] 2021 Private Health Insurance [employer] DUAL [facility] [facility] DUAL [id number] 2021-Present [phone] [address] [address] [place] [address] Medicare HMO [id number] 2016 Private Health Insurance [facility] xxxxxxxxx 2016-Present [phone] [address] [place] [address] xxxxxxxxx [id number] 2016 Private Health Insurance [id number] 2016 Unknown [id number] 2012 Unknown ANTHEM - BLUE CR OSS BLUE CROSS/HMO,PPO,POS [id number] 2012-Present [address] [place] [address] PPO [id number] 2012 Medicare [id number] 1970 Unknown [id number] Unknown [id number] 462 Unknown [id number] 462 Unknown [id number] 462 Unknown [id number] 462 Unknown [id number] 462 Unknown [id number] 462 Unknown [id number] 462 Unknown [id number] 462 Social History Date Type Detail Facility Start: 05-12-2019 End: 04-14-2025 Tobacco smoking status NHIS Current every day smoker [place], [place] Start: 05-12-2019 End: 11-07-2022 Cigarettes smoked current (pack per day) [facility] Start: 11-15-2018 End: 05-12-2019 Alcohol intake No [employer] Start: 1970 Sex Assigned At Not on file [place] Start: 05-15-2020 End: 11-03-2022 Tobacco use and exposure Never used [place] Start: 05-15-2020 End: 11-07-2022 Alcohol intake Current non-drinker of alcohol (finding) [employer] Phone: Start: 07-01-2019 End: 11-25-2022 History SDOH Alcohol Frequency 1 [employer] Phone: Start: 09-13-2019 History SDOH Social Connections Phone 3 [employer] Phone: Start: 09-13-2019 History SDOH Social Connections Membership 2 [employer] Phone: Start: 09-13-2019 History SDOH Social Connections Living 5 [employer] Phone: Start: 09-13-2019 End: 11-25-2022 History SDOH Physical Activity DPW 0 [employer] Phone: Start: 07-01-2022 End: 05-15-2023 Exposure to SARS-CoV-2 (event) Not sure [facility] [place], [place] Start: 03-21-2022 End: 12-01-2023 Tobacco smoking status NHIS Unknown if ever smoked [facility] Start: 03-30-2020 None [facility] Start: 06-18-2020 With Family [facility] Start: 12-26-2020 Cigarettes [facility] Start: 1970 Sex Assigned At Female W [facility] History of tobacco use Cigarette Smoker S [facility] How often to you hav e a drink containing alcohol? Never [employer] How many standard drinks containing alcohol do you have on a typical day? Patient does not drink [employer] Start: 03-05-2023 Tobacco smoking status Light t obacco smoker (finding) [facility] Sex Assigned At Sex [facility] Start: 10-09-2015 Tobacco smoking stat us NHIS Occasional tobacco smoker [facility] Start: 01-23-2009 Tobacco Comment increased to 2 ppd in 2002 with acute stress. quit [facility] Start: 10-08-2015 Alcohol Comment socially n the past [facility] Medical Equipment Procedure Code Equipment Code [...] Start: 08-24-2018 Putty Attrax 10c c - [id number] Start: 11-06-2022 Conn Reline-O 5-6/5-6 O-H Rot - [id number] Start: 11-06-2022 Pt has unknown aneurysm coil/clamp in brain & gastric pacer FDA Start: 08-24-2018 Pt has unknown aneurysm coil/clamp in brain & gastric pacer FDA Start: 08-24-2018 Cage Modulus Xl [id number] 10deg - [id number] Start: 11-06-2022 Screw Reline-O 2 s Pa 6.5x50 - [id number] Start: 11-06-2022 Screw Reline-O 2 s Pa 8.5x50 - [id number] Start: 11-06-2022 Screw Reline-O 2 s Pa 5.5x50 - [id number] Start: 11-06-2022 Pako Reline-O Ti 5.5x55 Lord - [id number] Start: 11-06-2022 Pako Reline-O Ti 5.5x40 Lord - [id number] Start: 11-06-2022 Screw Reline Ope n Tulip 5.5 - [id number] Start: 11-06-2022 Pt has unknown aneurysm [...] Ambulating in bolden, Ambulating in room, Awake [facility] Mental Status Date Assessment Result Facility 03-05-2023 Mental Status Oriented x 4 [facility] 09-23-2022 Cognitive function Level Of Cons ciousness Awake;Alert;Appropriate;Follow s Commands [facility] Work Phone: 08-24-2022 Cognitive function Voice/Name [facility] Work Phone: 03-21-2022 Cognitive function Level Of Cons ciousness Awake;Alert;Appropriate;Follow s Commands [facility] Work Phone: Clinical Notes 07-11-2022 to 04-14-2025 Note Date & Type Note Facility 04-14-2025 Radiology Diagnostic study note [facility] Imaging Services [address] [place], [place] [address] Chest PA and Lateral MR#: [id number] Acct: [id number] Name: ORTIZ MASON Rep #: [id number] : 1970 F 55 From: David Leonardo MD PCP: Dr. Amandeep Loredo DO Status: RE G ER Study:Chest PA and Lateral Date of Exam: 04/14/25 Exam# [id number] Ordering Dr: Alfred Parkinson DO PROCEDURE: CHEST [...] acute osseous change is seen. Reading Location: [facility] CC: Dr. Alfred Parkinson DO; Dr. Amandeep Loredo DO ~ [employer]: Signed [facility] 03-14-2025 Discharge summary [facility] 03-14-2025 Discharge summary Note Date/Time March 14, 2025 3:44pm [facility] Medical Records Department [address] [place] [address] Emergency Department Summary 03/14/25 MR#: [id number] Acct: [id number] Name: ORTIZ MASON Rep #:[id number] : 1970 55 From: Zain Carvajal MD PCP: Dr. Amandeep Loredo, DO Status:RE G ER Location: ED HPI [...] Narrative Narrative: 55-year-old female history of prior IA, brain aneurysm, and A-fib not on blood [...] Prior similar symptoms: No Recent Illness/Hospitalization: No PFSH PFS Medical History NSTEMI (non-ST elevated myocardial infarction) Cardiac arrest COVID-19 Brain aneurysm Chronic pain Rheumatoid arthritis Kidney stones Kidney disease GERD (gastroesophageal reflux disease) Former smoker Sleep apnea Asthma Migraines Seizures Home Medications ?Medication ?Instructions ?Recorded ?Last Taken ?Type lnfegawp-evcn-qhbj 8 mg-folic 400 1 tab PO DAILY suppl ement 03/21/19 07/26/21 History mcg-K 50 mcg-lutein 300 mcg tablet levetiracetam 750 mg tablet 1,500 mg PO TID seizures 0 12/04/19 07/26/21 History fluticasone propionate 50 1 spray intranasal DAILY 09/15 Unknown History mcg/actuation nasal spray,suspension (Flonase Allergy Relief) lidocaine 5 % topical ointment 1 applic topical TID CO N skin 11/17/22 Unknown Rx irritation #50 [...] PO TID 7 days #21 tab s 03/14/25 Unknown Rx oxycodone-acetaminophen 5 mg-325 1 tab [...] soft nontender. Moving all 4 extremities. Normal dimensional integration engineer strength. Normal dorsi plantarflexion. Normal sensation. [...] 7 Days Qty: 21 0RF No Action zamztctn-kzy-lvex-FA-vit K-lut 1 EACH tablet 1 tab PO DAILY levetiracetam 750 MG tablet 1,500 mg PO TID fluticasone propionate [Flonase Allergy Relief] 50 mcg/actuation Hixson,Suspension 1 spray INTRANASAL DAILY Rx Instructions: administer [...] not improving for further evaluation. Print Language: Spanish Disposition Disposition: Home, Self Care What to do if you have Problems For any increased pain, shortness of breath, bleeding, nausea or vomiting, chestpain, or any unexpected problems, contact your Primary Care Provider. Call [facility] ([phone]) or report to the closest Emergency Room. Call 911 if necessary. 03/14/25 1544 <Electronically signed by Zain Carvajal MD> Cosigner Signature (if applicable): CC: Dr. Amandeep Loredo DO ~ Signed [facility] Work Phone: 1(146) 379-481905-15-2025 Radiology Diagnostic study note [facility] Imaging Services [address] [place], [place] [address] Wrist min 3 Views MR#: [id number] Acct: [id number] Name: ORTIZ MASON Rep #: [id number] : 1970 F 54 From: Lizabeth Guerrero MD PCP: Dr. Amandeep Loredo DO Status: RE G ER Study:Wrist min 3 Views Date of Exam: Exam# [id number] Ordering Dr: Jhon Flynn DO PROCEDURE: WRIST [...] without visible acute displaced fracture. Reading Location: [id number] CC: Dr. Franki Flynn DO; Dr. Amandeep Loredo DO ~ [employer]: Signed [facility]05-15-2025 Radiology Diagnostic study note [facility] Imaging Services [address] [place], [place] [id number] HIP, UNI W/ Pelvis 2-3 Views MR#: [id number] Acct: [id number] Name: ORTIZ MASON Rep #: [id number] : 1970 F 54 From: Lizabeth Guerrero MD PCP: Dr. Amandeep Loredo DO Status: RE G ER Study:HIP, UNI W/ Pelvis 2-3 Views Date of Ex am: 01/05/25 Exam# [id number] Ordering Dr: Jhon Flynn DO PROCEDURE: HIP, [...] 2. Additional description as above. Reading Location: [id number] CC: Dr. Franki Flynn DO; Dr. Amandeep Loredo DO ~ [employer]: Signed [facility]06-08-2024 Telephone encounter Note* Telephone Encounter - [...] not been seenat since 2016. Assessment: See will call clerk. Recommendation: Triage recommends pt be seen within [...] 10; or none, mild, moderate, severe) Yes, 7-04/02. [...] N/A Protocols used: Rash or Redness - Upsofbmkc-X-RB GimrwKcczkf04-13-7483 Miscellaneous Notes* Telephone Encounter - Cheri Kuhn [...] not been seenat since 2016. Assessment: See will call clerk. Recommendation: Triage recommends pt be seen within [...] 10; or none, mild, moderate, severe) Yes, 7-04/02. 7. PAIN: Does the rash hurt? If Yes, ask: How bad is the pain? (Scale 0-10; or none, mild, moderate, severe) - NONE (0): no pain - MILD (1-3): doesn't interfere with normal activities - MODERATE (4-7): interferes with normal activities or awakens from sleep - SEVERE (8-10): excruciating pain, unable to do any normal activities 8/10. 8. OTHER SYMPTOMS: Do you have any other symptoms? (e.g., fever) No. 9. : Is there any chance you are ? When was your last menstrual period? N/A Protocols used: Rash or Redness - Ftdkcribn-K-FY documented in this [id number] Discharge summary Author Narciso Baron [facility] October 07, 2023 10:12pm Note Date/Time October 07, 2023 7:19pm [facility] Medical Records Department [address] [place] [address] Emergency Department Summary 10/07/23 MR#: [id number] Acct: [id number] Name: ORTIZ MASON Rep #:[id number] : 1970 53 From: Narciso Hawk PCP: Dr. Ari Sotomayor, Status:REG ER Location: ED HPI History of Present Illness Chief Complaint: Back [facility] Medical History (Updated 10/07/23 @ 22:[address] Narciso Baron, ) Asthma Brain aneurysm Cardiac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 encounter [facility] note* Diagnosis Lumbosacral radiculopathy due to degenerative [...] degeneration, lumbar [facility] Additional Instructions I suspect you have irritation of your ribs or chest wall associated with coughing or pneumonia. In addition to the medications prescribed I also recommend you take an hqfu-ltc-cmaaptw anti-inflammatory such as ibuprofen (you may take up to 600 mg every 6 hours), 4% Salonpas Lidoderm patch and Mucinex. Please follow-up with your primary care doctor. Return if you have a difficult time breathing or you have a progression/change of your symptoms.[facility] Work Phone: [facility] Discharge instructions Additional Instructions Follow-up with your spine surgeon on Thursday as scheduled. Continue taking your gabapentin, ibuprofen, and Flexeril.[facility] Work Phone: Hospital Discharge instructions Additional [...] the ER should [facility] have any [facility] Work [facility]: [facility] Discharge instructions Additional Instructions The x-ray showed no broken bones. I suspect that your pain is from irritation of the ulnar nerve that runs on your elbow. As the swelling and pressure decreases the pain should go down. I prescribed steroids and recommend you take eynm-arv-hbgkhnx pain relievers as needed.[facility] Work Phone: Hospital Discharge instructions Additional Instructions Pain caused by her heel spur. Motrin, Advil or ibuprofen for pain and swelling. Tylenol for pain. Ice to your heel. Buy extra padding to put in your shoe like a gel cup. Call and follow-up with the senior product consultant Dr. Dawit Mandujano for further evaluation and treatment of the heel spur.[facility] Work Phone: Hospital Discharge instructions* Attachments The following attachments cannot be sent through Care Everywhere. * Myelography (Spanish) [facility] Additional Instructions Motrin for pain and inflammation. Percocet for severe pain. Skelaxin is a muscle relaxant 1 pill 3 times a day till gone. Hot shower, warm bath, hot tub, massage for the muscle spasm. Follow-up with your doctor if not improving for further evaluation.[facility] Work Phone: Summary note* STEPHANIE Rodriguez: PERFORM Event Display: Patient Summary Documents Authored Date: [id number] [facility] Discharge Instructions * Attachments The following attachments cannot be sent through Care Everywhere. * Back Pain (Spanish) documented in this encounter* Discharge Instr - Lab* Colleen Rogel RN - 05/15/2020 1:10 PM EDT Your physician has ordered skilled home care services for you. Your home care [facility] be provided by: [facility] [phone] * Attachments The following attachments cannot be sent through Care Everywhere. * linaclotide (Spanish) * polyethylene glycol 3350 (Spanish) * senna (Spanish) documented in this encounter Assessments Diagnosis Bilateral low back pain without sciatica, unspecified chronicity- Primary Diagnosis Constipation, unspecified constipation type Gastroparesis Irritable bowel syndrome with constipation Irritable bowel syndrome Presence of gastric pacemaker Generalized abdominal pain Abdominal pain, generalized Nausea and vomiting Nausea with vomiting Advance Directives Documents on File Type Date Recorded Patient Trolley Operator Expl anation Advance Directives and Living Will Power of Insulation Board Coater Operator Latest Code Status on File Code Status Date Activated Date Inactivated Comments Full Code 11/25/2017 3:30 PM 11/25/2017 11:54 PM Documents on File Type Date Recorded Patient Trolley Operator Expl anation ACP-Advance Directive ACP-Power of Insulation Board Coater Operator Latest Code Status on File Code Status Date Activated Date Inactivated Comments Full Code 05/14/2020 12:49 AM Full Code 09/16/2019 11:05 PM 09/19/2019 4:00 PM Full Code 11/25/2017 3:30 PM 11/25/2017 11:54 PM Documents on File Type Date Recorded Patient Trolley Operator Expl anation Advance Directives and Living Will Power of Insulation Board Coater Operator Latest Code Status on File Code Status Date Activated Date Inactivated Comments Full Code 11/25/2017 3:30 PM 11/25/2017 11:54 PM Advance Directive Response Recorded Date/ Time Name of Medical Power of Insulation Board Coater Operator LEANDRA MILLER March 21, 2022 8:16pm Advance Directives No September 30, 2016 10:48pm Living Will No March 21, 2022 8:16pm Power of Insulation Board Coater Operator Yes March 21 8:16pm Advance Directive Response Recorded Date/ Time Name of Medical Power of Insulation Board Coater Operator LEANDRA MILLER March 21, 2022 8:16pm Name of Medical Power of Insulation Board Coater Operator Leandra Miller May 04, 2022 7:39pm Advance Directives No September 30, 2016 10:48pm Living Will No May 04, 2022 7:39pm Power of Insulation Board Coater Operator Yes April 7:39pm Advance Directive Response Recorded Date/ Time Name of Medical Power of Insulation Board Coater Operator LEANDRA MILLER March 21, 2022 8:16pm Name of Medical Power of Insulation Board Coater Operator Leandra Miller May 04, 2022 7:39pm Advance Directives No September 30, 2016 10:48pm Living Will No June 28 10:07pm Power of Insulation Board Coater Operator No June 28, 2022 10:07pm Advance Directive Response Recorded Date/ Time Name of Medical Power of Insulation Board Coater Operator Leandra Miller May 04, 2022 6:39pm Name of Medical Power of Insulation Board Coater Operator LEANDRA MILLER August 20, 2022 10:04pm Advance Directives No September 30, 2016 9:48pm Living Will No August 20 10:04pm Power of Insulation Board Coater Operator Yes August 20, 2022 10:04pm Advance Directive Response Recorded Date/ Time Name of Medical Power of Insulation Board Coater Operator Leandra Miller May 04, 2022 6:39pm Name of Medical Power of Insulation Board Coater Operator LEANDRA MILLER August 20, 2022 10:04pm Advance Directives No September 30, 2016 9:48pm Living Will No August 24 11:48am Power of Insulation Board Coater Operator No August 24 023 11:48am Advance Directive Response Recorded Date/ Time Name of Medical Power of Insulation Board Coater Operator LEANDRA MILLER August 20, 2022 10:04pm Name of Medical Power of Insulation Board Coater Operator Leandra Miller September 23, 2022 2:02pm Advance Directives No September 30, 2016 9:48pm Living Will No September 23 2:02pm Power of Insulation Board Coater Operator Yes September 23, 2022 2:02pm Advance Directive Response Recorded Date/ Time Name of Medical Power of Insulation Board Coater Operator LEANDRA MILLER August 20, 2022 10:04pm Name of Medical Power of Insulation Board Coater Operator Leandra Miller September 23, 2022 2:02pm Advance Directives No September 30, 2016 9:48pm Living Will No October 14 023 8:18pm Power of Insulation Board Coater Operator No October 14, 2022 8:18pm Advance Directive Response Recorded Date/ Time Name of Medical Power of Insulation Board Coater Operator LEANDRA MILLER August 20, 2022 11:04pm Name of Medical Power of Insulation Board Coater Operator Leandra Miller September 23, 2022 3:02pm Name of Medical Power of Insulation Board Coater Operator Leandra November 16, 2022 10:40pm Advance Directives No September 30, 2016 10:48pm Living Will Yes November 16, 2022 10:40pm Power of Insulation Board Coater Operator Yes November 16 10:40pm Latest Code Status on File Code [...] Date/ Time Name of Medical Power of Insulation Board Coater Operator Leandra November 16, 2022 10:40pm Name of Medical Power of Insulation Board Coater Operator LEANDRA PARRIS KNUTSON February 15, 2023 5:20pm Advance Directives No September 30, 2016 10:48pm Living Will No February 15, 2023 5:20pm Power of Insulation Board Coater Operator Yes February 15 5:20pm Advance Directive Response Recorded Date/ Time Advance Directives No September 30, 2016 9:48pm Living Will No October 07, 024 7:54pm Power of Insulation Board Coater Operator No October 07, 2023 7:54pm Advance Directive Response Recorded Date/ Time Name of Medical Power of Insulation Board Coater Operator Leandra Miller November 18, 2023 6:49pm Advance Directives No September 30, 2016 10:48pm Living Will No November 18, 2023 6:49pm Power of Insulation Board Coater Operator Yes November 17 6:49pm Advance Directive Response Recorded Date/ Time Name of Medical Power of Insulation Board Coater Operator Leandra Miller November 18, 2023 6:49pm Name of Medical Power of Insulation Board Coater Operator [facility]andra [facility] December 01, 2023 2:14am Advance Directives No September 30, 2016 10:48pm Living Will No December 01, 2023 2:14am Power of Insulation Board Coater Operator Yes November 30 2:14am Date Activated Date Inactivated Comments 10/09/2015 8:54 PM 10/11/2015 6:36 PM Advance Directive Response Recorded Date/ Time Living Will No October 20, 025 9:14pm Do you have a Healthcare Power of Insulation Board Coater Operator? Yes October 20, 2024 9:14pm Name of Medical Power of Insulation Board Coater Operator Leandra Miller October 20, 2024 9:14pm Do you have a Healthcare Power of Insulation Board Coater Operator? No January 05, 2025 6:20pm Advance Directives No September 10:23am Advance Directive Response Recorded Date/ Time Do you have a Healthcare Power of Insulation Board Coater Operator? No January 05, 2025 6:20pm Do you have a Healthcare Power of Insulation Board Coater Operator? Yes March 14, 2025 2:52pm Advance Directives No September 10:23am Advance Directive Response Recorded Date/ Time Do you have a Healthcare Power of Insulation Board Coater Operator? No January 05, 2025 6:20pm Do you have a Healthcare Power of Insulation Board Coater Operator? Yes March 14, 2025 2:52pm Do you have a Healthcare Power of Insulation Board Coater Operator? No April 14, 2025 7:56am Advance [...] February 02, 2019 7:58pm Family History?Diabetes Unknown [facility] 2024 10:23am Family History?Heart Disease Unknown February 02, 2019 7:58pm Hospital Course Note HNO ID: [id number] Author: Neelam Mueller MD Service: Hospital Medicine Author Type: Physician Type: Discharge Summary Filed: 01/09/2020 1:33 PM Note Text: DISCHARGE SUMMARY PATIENT NAME: Ortiz Mason Code Status: Full Code Highest Readmission Risk [...] (more content not included)... Note HNO ID: [id number] Author: Lian Vora Service: Neurology ICU Author Type: Physician Type: Procedures Filed: 01/06/2020 4:48 PM Note Text: BEDSIDE PROCEDURE NOTE CENTRAL LINE Performed by: Halle Arredondo Authorized by: Halle Arredondo The risks, benefits and alternatives of the procedure were reviewed with the patient/patient account manager sales representative. The patient/patient account manager sales representative agreed to proceed. Informed Consent Written Consent Obtained: yes Byram Protocol Sign In Communication: Completed Time Out [...] (more content not included)... Note HNO ID: [id number] Author: Lian Bunch Service: Radiology Author Type: Physician Type: Brief Op Note Filed: 01/06/2020 2:55 PM Note Text: INTERVENTIONAL RADIOLOGY POST PROCEDURE NOTE DATE: 01/06/20 NAME: Ortiz Mason LOG ID: [id number] Pre-Procedure Diagnosis: Headache and intracranial hypotension Last Pattern Grader: Surgeon(s) and Role: * Erika Bunch - Primary Procedure: Fluoro guided lumbar epidural [...] I discussed the case with the physician assistant food service director. Patient was laying in bed during my [...] not included)... Procedure Findings Note HNO ID: [id number] Author: Lian Vora Service: Neurology ICU Author Type: Physician Type: Procedures Filed: 01/06/2020 4:48 PM Note Text: BEDSIDE PROCEDURE NOTE CENTRAL LINE Performed by: Halle Arredondo Authorized by: Halle Arredondo The risks, benefits and alternatives of the procedure were reviewed with the patient/patient account manager sales representative. The patient/patient account manager sales representative agreed to proceed. Informed Consent Written Consent Obtained: yes Byram Protocol Sign In Communication: Completed Time Out [...] (more content not included)... Note HNO ID: [id number] Author: Lian Bunch Service: Radiology Author Type: Physician Type: Brief Op Note Filed: 01/06/2020 2:55 PM Note Text: INTERVENTIONAL RADIOLOGY POST PROCEDURE NOTE DATE: 01/06/20 NAME: rOtiz Mason LOG ID: [id number] Pre-Procedure Diagnosis: Headache and intracranial hypotension Last Pattern Grader: Surgeon(s) and Role: * Erika Bunch - Primary Procedure: Fluoro guided lumbar epidural [...] syndrome with constipation Delbert Damon PA-C [address] [facility] [address] [place] [address] [facility] [address] [place] [address] Scheduling Instructions [facility] [address], [address] [place]. [address] Fax: Status Reason Specialty Diagnoses / Procedures Re ferred By Contact Referred To Contact Closed Radiology Diagnoses Painful urination Flank pain Procedures CT ABDOMEN PELVIS WO CONTRAST Additional Contrast? Radiologist Recommendation Ari Sotomyaor, DO [address] [place] [address] Specialty Diagnoses / Procedures Referred By Contac t Referred To Contact Neurology Diagnoses Cervicalgia Procedures Nerve conduction test with EMG Shadia Kovacs PA-C [address] [place] [address] [facility] [address] [place] [address] Referral ID Status Reason Start Date Expiration Date Visits Re quested Visits Authorized [id number] Closed 05/11/2023 11/07/2023 1 1 Specialty Diagnoses / Procedures Referred By Contac t Referred To Contact Radiology Diagnoses Spinal stenosis, lumbar region with neurogenic claudication Procedures IR myelography lumbosacral SI Kenny Serna MD 1 [facility] [address] [place] [address] Referral ID Status Reason Start Date Expiration Date Visits Re quested Visits Authorized [id number] Closed 09/23/2022 03/22/2023 1 1 History of Present Illness * Damari Askew DTR - 05/15/2020 1:27 PM EDT Nutrition rescreen completed. Chart reviewed. Patient to be monitored and followed by the diet wire technician. * VidaTeo strausswendy Ricks, PT - 05/15/2020 12:20 PM EDT Physical Therapy Facility/Department: [facility] Initial Assessment NAME: Ortiz Mason : 1970 Date of Service: 05/15/2020 Discharge [...] of left side without obstruction organgrene, Insomnia, IA (myocardial infarction) ([facility]), Migraine, Neuropathy, PAF (paroxysmal atrial fibrillation) ([facility]), PTSD (post- traumatic stress disorder), PUD (peptic ulcer disease), Seizure disorder ([facility]), Sleep apnea, Stroke ([facility]), Substance abuse ([facility]), Surgical menopause, and Urinary incontinence. has a [...] Ambulation Assistance: Independent Transfer Assistance: Independent Active Prepress Operator: No Patient's Prepress Operator Info: Daughter or Fiance' Occupation: On disability [...] AM-PAC Inpatient Mobility Raw Score : 21 (05/15/201213) AM-PAC Inpatient T-Scale Score : 50.25 (05/15/201213) Mobility Inpatient CMS 0-100% Score: 28.97 (05/15/201213) Mobility Inpatient CMS G-Code Modifier : CJ (05/15/201213) Goals Patient Goals Patient goals : go home Therapy Time Individual Concurrent Group Co-treatment Time In 1150 Time Out 1202 Minutes 12 Patient s Physical Therapy Plan of Care supervision is transferred to [facility] Department Physical Therapist. Katrin Mcpherson, PT N-95, goggles, and gloves worn * Janeth Diaz, [facility] - 05/14/2020 10:47 AM EDT [facility] MEDICATION RECONCILIATION Date: 05/14/20 Room:[id number] Patient Name: Ortiz Mason Allergies: Latex; Other; Bee venom; Propoxyphene; Tape [...] daily - last fill on 02/12/20 per [facility]. b. Advair 250-50 mcg/dose 1 puff daily (Patient has not filled since January 2020. States script was originally written for q 12 hours but was instructed to use only once daily). c. Levetiracetam 250 mg - 5 tablets twice daily - last fill per [facility] pharmacy 12/13/19 d. Tizanidine 4 mg BID as needed - last fill per [facility] pharmacy was in August 2019. They [...] 10:47 AM Name: Janeth Diaz PharmD Pager: [phone] * Delbert Damon PA-C - 05/14/2020 7:55 AM EDT [facility] Progress Note Ortiz Mason : 1970(50 y.o.) Date: 05/14/2020 10:04 AM [...] creatinine clearance >30 Disposition:await test results, await heritage consultant recommendations, await clinical improvement and anticipate discharge 1-2d I spent over 51% of total time providing counseling or incoordination of care: > 35 minutes discussed with nurse, patient and family updated, I personally examined the patient and I personally reviewed chart, data, labs radiology reports 7AM-4PM Please Perfect serve Delbert Damon PA-C or page: [phone] 6PM-6AM please page: [facility] Associated attestation - Kenisha Brunson MD - 05/14/2020 3:19 PM EDT Attending Supervising Physician's Attestation Statement The patient is a 50 y.o. female. I have performed a history and physical examination of the patient. I discussed the case with the physician assistant food service director. I reviewed the patient's Past Medical History, Past Surgical History, Medications, and Allergies. Ms. Mason felt better on evaluation this morning. Noted [...] 143/94 Pulse: 99 101 102 90 Resp: 16 Temp: 97 F (36.1 C) 96.5 [...] of Surgery Progress Note PATIENT NAME: Ortiz Mason DOB: 1970 ATTENDING PHYSICIAN: Aba Aguilar MD ADMIT [...] intake/output data recorded. Data CBC: Recent Labs 05/13/20193005/14/20 0136 WBC 8.1 [...] gastroparesis s/p neurostimulator placement 2012 with battery [id number] presenting with abdominal pain and constipation Gastroparesis - will interrogate pacer today - ok to advance diet as tolerated - anti-emetics PRN - consider scheduled reglan Constipation - aggressive bowel regimen - GI consulted Pager:[phone] Associated attestation - Theron Taylor MD - 05/14/2020 2:08 PM EDT [facility] - Surgery [facility] Physicians Surgery Patient Name: Ortiz Mason Date: 05/14/20 No acute - feels better [...] in the evaluation and management of Ortiz Mason in the development of a treatment plan [...] By Dl dai Referred To Contact Diagnoses Radiculopathy, lumbar region Spinal stenosis of lumbar region Spondylolisthesis, lumbar region Other intervertebral disc degeneration, lumbar region LUMBAR RADICULOPATHY LUMBAR STENOSIS LUMBAR SPONDYLOLITHESES LUMBAR DDD Procedures CO ARTHRD ANT INTERBODY MIN DSC LUMBAR CO SRINIVASAN FACETECTOMY & FORAMOTOMY 1 VRT SGM LUMBAR CO INSJ BIOMCHN DEV INTERVERTEBRAL DSC SPC W/ARTHRD CO POSTERIOR SEGMENTAL INSTRUMENTATION 3-6 VRT SEG CO ALLOGRAFT FOR SPINE SURGERY ONLY MORSELIZED CO AUTOGRAFT SPINE SURGERY LOCAL FROM SAME INCISION CO SRINIVASAN FACETECTOMY & FORAMOTOMY 1 VRT SGM LUMBAR CO SRINIVASAN FACETECTOMY&FORAMOT 1 VRT SGM EA ADDL SGM CO STEREOTACTIC COMPUTER ASSISTED PX SPINAL ANTERIOR LUMBAR INTERBODY FUSION L3/4 VIA RETROPERITONEAL APPROACH; POSTERIOR LATERAL FUSION WITH INSTRUMENTATION L3/L4; LUMBAR L3/L4 LAMINECTOMY POSTERIOR LUMBAR LAMINECTOMY FACETECTOMY FORAMINOTOMY AND DECOMPRESSION Kenny Serna MD [address] [address] [facility] [address] [place] [address] Referral ID Status Reason Start Date Expiration Date Visits Re quested Visits Authorized [id number] 1 1 Reason Onset Date Comments Post-op [...] Contact Diagnoses Syncope, unspecified syncope type Procedures [id number], unspecified syncope type Jose R Nowak, DO [address] [place] [address] [facility] Dept [address] [place] [address] Referral ID Status Reason Start Date Expiration Date Visits Re quested Visits Authorized [id number] 1 1 Specialty Diagnoses / Procedures Referred By Contac t Referred To Contact Radiology Diagnoses Spinal stenosis, lumbar region with neurogenic claudication Procedures CT lumbar spine w IV contrast Kenny Serna MD 1 [facility] [address] [place] [address] Referral ID Status Reason Start Date Expiration Date Visits Re quested Visits Authorized [id number] Closed 07/11/2022 2023 1 1 Specialty Diagnoses / Procedures Referred By Contac t Referred To Contact Neurology Diagnoses Cervicalgia Procedures Nerve conduction test with EMG Shadia Kovacs PA-C [address] [place] [address] [facility] [address] [place] [address] Referral ID Status Reason Start Date Expiration Date Visits Re quested Visits Authorized [id number] Closed 05/11/2023 11/07/2023 1 1 Reason Comments Mass On stomach getting b igger and now painful Reason Onset Date Comments Mouth Lesions 09/01/2023 Reason Onset Date Comments Advice/health education 01/30/2024 Reason Comments New Patient Specialty Diagnoses / Procedures Referred By Contac t Referred To Contact Orthopedic Surgery Diagnoses Lumbar pain Ileana Villa, ACCOUNTS PAYABLE ASSISTANT - B[employer] FIDDLE PLAYER [address] [place] [address] Kenny Serna MD [address] [facility] [address] [place] [address] Referral ID Status Reason Start Date Expiration Date Visits Requested Visits Authorized [id number] Pending Review Specialty Services Required 12/30/2022 1 1 Specialty Diagnoses / Procedures Referred By Contac t Referred To Contact Radiology Diagnoses Spinal stenosis, lumbar region with neurogenic claudication Procedures IR myelography lumbosacral SI Kenny Serna MD [address] [facility] [address] [place] [address] Referral ID Status Reason Start Date Expiration Date Visits Re quested Visits Authorized [id number] Closed 09/23/2022 03/22/2023 1 1 Reason Comments Follow-up Reason Onset Date Comments nurse triage 10/01/2022 Reason Onset Date Comments Nurse Navigation 10/27/2022 Reason Comments surgical clearance INFORMATION SOURCE (unrecogn ized section and content) DATE CREATED AUTHOR 09/17/2019 [facility] DATE CREATED AUTHOR AUTHOR'S ORGANIZ ATION 01/09/2020 [facility] DATE CREATED AUTHOR AUTHOR'S ORGANIZ ATION 01/09/2020 [facility] DATE CREATED AUTHOR AUTHOR'S ORGANIZ ATION 01/18/2020 [facility] DATE CREATED AUTHOR AUTHOR'S ORGANIZ ATION 05/21/2020 [facility] DATE CREATED AUTHOR AUTHOR'S ORGANIZ ATION 03/13/2023 [facility] ([place]) DATE CREATED AUTHOR AUTHOR'S ORGANIZ ATION 01/31/2024 [facility] DATE CREATED AUTHOR AUTHOR'S ORGANIZ ATION 10/01/2024 [facility] DATE CREATED AUTHOR AUTHOR'S ORGANIZ ATION 03/25/2025 [facility] Goals (unrecognized section and content) Goals may [...] Role Status Dates Dr. Amandeep Loredo , DO Family Provider Active Dr. Ari Sotomayor , DO Primary Care Provider Active Team Status: Inactive Member Role Status Dates Dr. Ari Sotomayor , DO Primary Care Provider, Referrin g Provider Active Tyler QUINTANA, PA Attending Provider Active Team Status: Inactive Member Role Status Dates Dr. Ari Sotomayor , DO Primary Care Provider Active Dr. Maya [...] , DO Primary Care Provider Active Dr. Ellen Chaney MD Attending Provider, Emergency Provider Active Team Status: Inactive Member Role Status Dates Dr. Ari Sotomayor , DO Primary Care Provider Active Dr. Mattie Jeffrey , DO Emergency Provider Active Team Status: Inactive Member Role Status Dates Dr. Ari Sotomayor , DO Primary Care Provider Active Dr. Mattie Jeffrey , DO Attending Provider, Emergency P rovider Active Team Status: Inactive Member Role Status Dates Dr. Ari Sotomayor DO Primary Care Provider Active Jordin Chisholm MD Emergency Provider Active It Service Continuity Supervisor Relationship Specialty Start Date End Date Lauritagerri Amandeep Pineda, DO [address] [place] [address] PCP - General Family Medicine 01/11/21 It Service Continuity Supervisor Relationship Specialty Start Date End Date Amandeep Loredo, DO [address] [place] [address] PCP - General Family Medicine 01/11/21 It Service Continuity Supervisor Relationship Specialty Start Date End Date Michelleharjit Amandeep Pineda, DO [address] [place] [address] PCP - General Family Medicine 01/11/21 It Service Continuity Supervisor Relationship Specialty Start Date End Date Michelleharjit Amandeep Pineda, DO [address] [place] [address] PCP - General Family Medicine 01/11/21 It Service Continuity Supervisor Relationship Specialty Start Date End Date Michelleharjit Amandeep Pineda, DO [address] [place] [address] PCP - General Family Medicine 01/11/21 Team Status: Inactive Member Role Status Dates Dr. Ari Sotomayor , DO Primary Care Provider Active Jordin Chisholm MD Attending Provider, Emergency Provid er Active Team Status: Inactive Member Role Status Dates Dr. Ari Sotomayor DO Primary Care Provider Active Dr. Alfredito Guerrero , DO Emergency Provider Active It Service Continuity Supervisor Relationship Specialty Start Date End Date Michelleharjit Amandeep Pineda, DO [address] [place], [place] [phone] PCP - General Family Medicine 01/11/21 It Service Continuity Supervisor Relationship Specialty Start Date End Date Gertrude Amandeep Pineda, [address] [place] [address] PCP - General Family Medicine 01/11/21 It Service Continuity Supervisor Relationship Specialty Start Date End Date Amandeep Loredo, [address] [place], [place] [id number] PCP - General Family Medicine 01/11/21 It Service Continuity Supervisor Relationship Specialty Start Date End Date Gertrude Amandeep Pineda [address] [place] [address] PCP - General Family Medicine 01/11/21 Team Status: Inactive Member Role Status Dates Dr. Ari Sotomayor DO Primary Care Provider Active Dr. Maya Monroy MD Emergency Provider Active It Service Continuity Supervisor Relationship Specialty Start Date End Date Gertrude Amandeep Pineda [address] [place] [phone] PCP - General Family Medicine 01/11/21 It Service Continuity Supervisor Relationship Specialty Start Date End Date Gertrude Amandeep Pineda [address] [place] [id number] PCP - General Family Medicine 01/11/21 It Service Continuity Supervisor Relationship Specialty Start Date End Date Amandeep Loredo DO [address] [place] [address] PCP - General Family Medicine 01/11/21 It Service Continuity Supervisor Relationship Specialty Start Date End Date Amandeep Loredo DO [address] [place] [address] PCP - General Family Medicine 01/11/21 It Service Continuity Supervisor Relationship Specialty Start Date End Date Amandeep Loredo DO [address] [place] [address] PCP - General Family Medicine 01/11/21 Team Status: Inactive Member Role Status Dates Dr. Ari Sotomayor DO Primary Care Provider Active Dr. Narciso Baron , DO Emergency Provider Active Team Status: Active Member Role Status Dates Dr. Amandeep Loredo DO Family Provider Active Dr. Amandeep Loredo DO Primary Care Provider Active Team Status: Inactive Member Role Status Dates Dr. Ari Sotomayor DO Primary Care Provider Active Dr. Narciso Baron DO Attending Provider, Emergency P rovider Active Team Status: Inactive Member Role Status Dates Dr. Zain Carvajal MD Emergency Provider Active Dr. Amandeep Loredo DO Primary Care Provider Active Team Status: Inactive Member Role Status Dates Dr. Zain Carvajal MD Attending Provider, Emergency Pro vider Active Dr. Amandeep Loredo DO Primary Care Provider Active Team Status: Inactive Member Role Status Dates Dr. Amandeep Loredo DO Primary Care Provider Active Dr. Franki Flynn , DO Emergency Provider Active It Service Continuity Supervisor Relationship Specialty Start Date End Date Ari Sotomayor DO [address] [place], [place] [phone] PCP - General 09/16/19 It Service Continuity Supervisor Relationship Specialty Start Date End Date Ari Sotomayor DO [address] [place], [place] [phone] PCP - General 09/16/19 It Service Continuity Supervisor Relationship Specialty Start Date End Date Ari Sotomayor, DO [address] [place] [address] PCP - General 09/16/19 It Service Continuity Supervisor Relationship Specialty Start Date End Date Ari Sotomayor, DO [address] [place] [address] PCP - General 09/16/19 It Service Continuity Supervisor Relationship Specialty Start Date End Date Ari Sotomayor, DO [address] [place] [address] PCP - General 09/16/19 It Service Continuity Supervisor Relationship Specialty Start Date End Date JacquelineAri hawk, DO [address] [place] [address] PCP - General 09/16/19 It Service Continuity Supervisor Relationship Specialty Start Date End Date Amandeep Loredo, DO [address] [place] [address] PCP - General Family Medicine 01/11/21 It Service Continuity Supervisor Relationship Specialty Start Date End Date Amandeep Loredo DO [address] [place] [address] PCP - General Family Medicine 01/11/21 Team Status: Active Member Role Status Dates Dr. Amandeep Loredo DO Primary Care Provider Active Team Status: Inactive Member Role Status Dates Dr. Amandeep Loredo DO Primary Care Provider Active Start: October 20, 2024 End: October 21, 2024 Dr. Luis Angel Morales , Attending Provider Active Start: October 20, 2024 End: October 21, 2024 Dr. Luis Angel Morales , DO Referring Provider Active Start: October 20, 2024 End: October 21, 2024 Dr. Luis Angel Morales , DO Emergency Provider Active Start: October 20, 2024 End: October 21, 2024 Team Status: Inactive Member Role Status Dates Dr. Amandeep Loredo DO Primary Care Provider Active Start: January 05, 2025 End: January 05, 2025 Dr. Franki Flynn DO Emergency Provider Active Start: January 05, 2025 End: January 05, 2025 Team Status: Active Member Role/Relationship Status Dates Dr. Amandeep Loredo [...] Loredo DO Primary Care Provider Active Start: April 14, [...] Rosa Taveras)1401 (Not Given - Provider: Waleska León, ARUN - Reason: Other - Comment: pt at [...] RN) 0808 (Given - Provider: Kerri Eller, ARUN) cholecalciferol (Vitamin D-3) tablet 5,000 Units 5,000 Units, Oral, Daily, First dose on Thu11/07/22 at 1615, Recovery & On Unit 1103 (Given - Provider: Rosa Taveras) 0854 (Given - Provider: Sahdia Metz RN) 0808 (Given - Provider: Kerri Eller, ARUN) clindamycin in D5W (Cleocin) IVPB 900 mg (COMPLETED) 900 mg, IntraVENous, at 50 mL/hr, Administer over 60 Minutes, Every 8 hours, First dose on Lana 11/06/22 at 2200, For 2 days, Phase II/On Unit, premix bag, Suspected Indication (Select all that apply): Surgical Prophylaxis 0623 (New Bag - Provider: Rea Villareal RN)0723 (Stopped - Provider: Waleska León, ARUN)1435 (New Bag - Provider: Rosa Taveras)1535 (Stopped [...] Villareal RN)1140 (Given - Provider: Kerri Eller, ARUN) gabapentin (Neurontin) capsule 300 mg 300 mg, Oral, 3 times daily, First dose on Thu11/07/22 at 1400 0859 (Given - Provider: Waleska León RN)1743 (Given - Provider: Waleska León RN - Comment: pt request)220 (Given - Provider: Rea Villareal RN) 0900 (Given - Provider: Shadia Metz RN)1418 (Given - Provider: Shadia Metz RN)2022 (Given - Provider: Rea Villareal RN) 0808 (Given - Provider: Kerri Eller, ARUN)1400 (Canceled Entry - Provider: Automatic Discharge Provider - Comment: Automatically canceled at discontinue of medication order) levETIRAcetam (Keppra) tablet 1,500 mg 1,500 mg, Oral, 2 times daily, First dose on Thu11/07/22 at 2100, Recovery & On Unit 1102 (Given - Provider: Rosa Taveras - Comment: pt was resting)2200 (Given - Provider: Rea Villareal RN) 0854 (Given - Provider: Shadia Metz, ARUN)202 (Given - Provider: Rea Villareal RN) 0818 (Given - Provider: Kerri Eller, ARUN) Lidocaine 4 % patch 1 patch 1 patch, Topical, Administer over 12 Hours, Daily, First dose on Thu11/07/22 at 0930, Apply patch to affected area. Patch may remain in place for up to 12 hours in any 24 hour period. 1108 (Medication Applied - Provider: Rosa Taveras)2308 (Medication Removed - Provider: Rea Villareal RN) 0854 (Medication Applied - Provider: Shadia Metz, ARUN)2054 (Medication Removed - Provider: Rea Villareal RN) [...] Villareal RN)1134 (Given - Provider: Waleska León RN)2201 (Given - Provider: Rea Villareal RN) 0544 (Given - Provider: Rea Villareal RN)1417 (Given - Provider: Shadia Metz RN)202 (Given - Provider: Rea Villareal RN) 0508 (Given - Provider: Rea Villareal RN)1140 (Given - Provider: Kerri Eller RN) metoclopramide (Reglan) tablet 10 mg 10 mg, Oral, Every 6 hours scheduled (4 times per day), First dose on 11/07/22 at 1800, Recovery & On Unit 0006 (Given - Provider: Rea Villareal RN)0623 (Given - Provider: Rea Villareal RN)1134 (Given - Provider: Waleska León RN)1637 (Given - Provider: Waleska León RN) 0038 (Given - Provider: Rea Villareal RN)0544 (Given - Provider: Rea Villareal RN)1114 (Given - Provider: Shadia Metz RN)1725 (Given - Provider: Shadia Metz, ARUN) 0039 (Given - Provider: Rea Villareal RN)0606 (Given - Provider: Rea Villareal RN)1140 (Given - Provider: Kerri Eller RN) pantoprazole (ProtoNix) EC tablet 20 mg 20 [...] mEq per 1 oz fluid., Indications: Hypokalemia 1725 (Given - Provider: Shadia Metz, ARUN) Senna (Senokot) syrup 10 mL(Linked Group 1) 10 mL, Oral, 2 times daily, First dose on 11/09/22 at 1200, Give oral liquid if patient prefers or per feeding tube if present. 1207 (See Alternative - Provider: Shadia Metz RN)2021 (See Alternative - Provider: Rea Villareal RN) 0900 (See Alternative - Provider: Kerri Eller, ARUN) sennosides (Senokot) tablet 17.2 mg(Linked Group 1) [...] RN) 0900 (Given - Provider: Shadia Metz RN)214 (Given - Provider: Rea Villareal RN) 0900 (Not Given - Provider: Kerri Eller RN - Reason: IV Fluids Infusing) PRN Medication Order 11/08/2022 11/09/2022 11/10/2022 albuterol 108 (90 Base) MCG/ACT inhaler 2 puff 2 puff, Inhalation, Every 6 hours PRN, wheezing, shortness of breath, Starting on Thu11/07/22 at 1602, Recovery & On Unit HYDROmorphone [...] Villareal RN)0854 (See Alternative - Provider: Shadia Metz RN)1207 (See Alternative - Provider: Shadia Metz RN)1505 (See Alternative - Provider: Shadia Metz RN)1807 (See Alternative - Provider: Lesly Nichols RN)2140 (See Alternative - Provider: Rea Villareal [...] Rea Villareal RN)0854 (Given - Provider: Shadia Metz, ARUN)1207 (Given - Provider: Shadia Metz, RN)1505 (Given - Provider: Shadia Metz RN)1807 (Given [...] Villareal RN)1133 (See Alternative - Provider: Waleska León, ARUN)1635 (Given - Provider: Waleska León, RN)2036 (Given - Provider: Rea Villareal RN) 0038 (Given - Provider: Rea Villareal RN)0543 (Given - Provider: Rea Villareal RN)1020 (Given - Provider: Shadia Metz RN)1417 (Given - Provider: Shadia Metz RN)2021 (Given - Provider: Rea Villareal RN) 0039 (Given - Provider: Rea Villareal RN)0605 (Given - Provider: Rea Villareal RN)1140 (Given - Provider: Kerri Eller, ARUN) oxyCODONE (Roxicodone) immediate release tablet 5 mg(Linked Group 4) 5 mg, Oral, Every 4 hours PRN, moderate pain (4-6), Starting on Thu11/07/22 at 0928 0213 (See Alternative - Provider: Rea Villareal RN)0623 (See Alternative - Provider: Rea Villareal RN)1133 (Given - Provider: Waleska León RN)1635 (See Alternative - Provider: Waleska León RN)2035 [...] Villareal RN)1140 (See Alternative - Provider: Kerri Eller, ARUN) polyethylene glycol (PEG) 3350 (Miralax) packet 17 g 17 g, Oral, 2 times daily PRN, constipation, Starting on Thu11/09/22 at 1150 1803 (Given - Provider: Lesly Nichols, ARUN) sodium chloride 0.9 % infusion 5-250 mL/hr, IntraVENous, PRN, if patient receiving piggyback infusions and maintenance fluids are not ordered OR KVO fluids to protect IV site / prevent frequent line interruptions/ long duration, Starting on Lana 11/06/22 at 2020, Phase II/On Unit, For piggyback infusion, administer [...] daily, First dose on 11/09/22 at 1200 Or Senna (Senokot) syrup 10 mLJump to med 10 mL, Oral, 2 times daily, First dose on Thu11/09/22 at 1200
Give oral liquid if patient [...] on Lana 11/06/22 at 2020, Phase II/On Unit
1st Line. Give IV [...] 24 hours. 2030 (Given - Provider: Sparkle Hassan, ARUN) 0340 (Not Given - Provider: Verenice Oh RN - Reason: Other - Comment: Pt sleeping)1140 (Not Given - Provider: Lyndsay Paredes RN - Reason: Patient/family refused)204 (Given - Provider: Jayne Dubois RN) 0507 (Given - Provider: Jayne Dubois RN)1140 (Not Given - Provider: Mickie Quiroga RN - Reason: Patient/family refused) aluminum & magnesium hydroxide-simethicone (Mylanta) 200-200-20 MG/5ML oral suspension 10 mL (COMPLETED) 10 mL, Oral, Once, On Thu11/25/22 at 2200, For 1 dose 2213 (Given - Provider: Sparkle Hassan RN) aspirin EC tablet 81 mg 81 mg, [...] 1 dose 1630 (Given - Provider: Sparkle Hassan RN) enoxaparin (Lovenox) syringe 40 mg 40 mg, SubCUTAneous, Every 24 hours scheduled (Daily), First dose on Thu11/26/22 at 0900, Indication of Use: Prophylaxis-DVT/PE, Indications: Prophylaxis of Venous Thromboembolism 09 (Not Given - Provider: Lyndsay Paredes RN [...] Lyndsay Paredes RN)1409 (Given - Provider: Rubia Infante, RN)2043 (Given - Provider: Jayne Dubois RN) [...] Sparkle Hassan RN)2244 (Stopped - Provider: Sparkle Hassan RN) 0839 (New Bag - Provider: Lyndsay Paredes RN)1019 (Stopped - Provider: Lyndsay Paredes RN)204 (New Bag - Provider: Jayne Dubois RN)2057 (Stopped - Provider: Jayne Dubois RN) 0815 (New Bag - Provider: Spring Miller LPN)0830 (Stopped - Provider: Mickie Quiroga RN) levETIRAcetam (Keppra) 2,000 mg in sodium chloride 0.9 % 100 mL IVPB (COMPLETED) 2,000 mg, IntraVENous, at 400 mL/hr, Administer over 15 Minutes, Once, On Thu11/25/22 at 1050, For 1 dose 1121 (New Bag - Provider: Saravanan Santos)1136 (Stopped - Provider: Sparkle Hassan RN) lidocaine (Xylocaine) 2 % mouth solution 15 mL (COMPLETED) 15 mL, Mouth/Throat, Once, On Thu11/25/22 at 2200, For 1 dose 2214 (Given - Provider: Sparkle Hassan RN) methocarbamol (Robaxin) tablet 1,500 mg 1,500 mg, [...] - Provider: Sahara Manriquez RN) nystatin (Mycostatin) 867272 UNIT/ML suspension 500,000 Units 500,000 Units (5 mL), Swish & Swallow, 4 times daily, First dose on Thu11/25/22 at 2100 2100 (Given - Provider: Sparkle Hassan RN) 0838 (Given - Provider: Lyndsay Paredes RN)1409 (Given - Provider: Rubia Infante RN)1700 (Canceled Entry - Provider: Automatic Discharge Provider - Comment: Automatically canceled at discontinue of medication order)204 (Given - Provider: Jayne Dubois RN) 0809 [...] Provider: Saravanan Santos - Comment: given by ARUN Villagran) pantoprazole (ProtoNix) EC tablet 40 mg 40 mg, Oral, Daily before breakfast, First dose on Thu11/26/22 at 0700, Do not crush, chew, or split. 0553 (Given - Provider: Verenice Oh RN) 0507 (Given - Provider: Jayne Dubois RN) permethrin (Elimite) 5 % cream (COMPLETED) Topical, Once, On Thu11/25/22 at 1945, For 1 dose 2214 (Given - Provider: Sparkle Hassan, ARUN) sodium chloride 0.9 % bolus 1,000 mL (COMPLETED) 1,000 mL, IntraVENous, at 1,000 mL/hr, Administer over 1 Hours, Once, On Thu11/25/22 at 1015, For 1 dose 1108 (New Bag - Provider: Saravanan Santos)1208 (Stopped - Provider: Sparkle Hassan RN) Continuous Medication Order 11/25/2022 11/26/2022 11/27/2022 lactated Ringer's infusion (CANCELED) 100 mL/hr, IntraVENous, Continuous, Starting on Thu11/26/22 at 1430 2040 (New Bag - Provider: Jayne Dubois RN) [...] times daily PRN, dry skin, Starting on 4/4/23 at 2206, Apply to lip corners. 0101 (Given - Provider: Jayne Dubois, ARUN) morphine sulfate (PF) injection 2 mg (CANCELED) [...] Verenice Oh RN)1149 (Given - Provider: Charo Castañeda, ARUN) ondansetron ODT (Zofran-ODT) disintegrating tablet 4 mg(Linked [...] Oh RN)1149 (See Alternative - Provider: Charo Castañeda, ARUN) oxyCODONE (Roxicodone) immediate release tablet 10 mg(Linked [...] BE BASED ON THE PRIMARY CLINICAL RECORDS. [employer] provides no warranty or guarantee of the accuracy or completeness of information in this document.
[2025-04-15 19:11] LABS: Magnesium 2.2 mg/dL (1.5-2.2)
--- OUTSIDE RECORDS SUMMARY | 2025-04-15 19:11 | XMS RPT_ITS | CCD ---
Author Organization [facility] Care Team Providers Care Director [employer] Name Role Phone Amandeep Loredo Primary Care Provider Dr. Ari Sotomayor Primary Care Provider Dr. Ari Sotomayor Referring Provider [phone] LILIAN Mcgraw Attending Provider [phone] Amandeep Loredo DO Primary Care Provider Amandeep [...] Provider Dr. Zain Carvajal MD Emergency Provider [phone] Jordin Chisholm Attending Unavailable Amandeep Loredo Primary Care Unavailable Narciso Baron Attending Unavailable Amandeep Loredo Primary Care Unavailable Amandeep Loredo Referring Unavailable Trevor Pisano Attending Unavailable [facility], Trevor Primary Care Unavailable [facility], Trevor Primary Care Unavailable Franki Flynn Attending Unavailable [facility], Trevor Primary Care Unavailable Zain Carvajal Attending Unavailable Luis Angel Morales Attending Unavailable Luis Angel Morales Referring Unavailable Petria, Amandeep Primary Care Unavailable Petria, Amandeep Primary Care Unavailable Mattie Jeffrey Attending Unavailable [facility] Unavailable Kenny Kaye Attending Unavailable Wei RICHARDSON, Dr. Pittman Attending Provider [phone] Dr. Alfred Parkinson DO Emergency Provider [phone] Allergies Allergy Classification Reported Allergen(s) Allergy Type Date of Onset Reaction(s) Facility Acetaminophen / HYDROcodone (1 source) Acetaminophen / HYDROcodone Drug Allergy 04-21-20 12 [facility] acetaminophen / propoxyphene (1 source) acetaminophen / propoxyphene [facility]illins (antibiotic) (1 source) Penicillins Drug Allergy 07-05-20 02 [facility] Work Phone: (20 sources) Acetaminophen / HYDROcodone Drug Allergy 04-21-20 12 Itching, Rash [place], [place] (16 sources) Adhesive Tape; Translations: [adhesive tape] Propensity to adverse reactions to drug 04-24-20 15 Other [place], [place] Comment on above: BLISTERING (20 sources) bee venom Propensity to adverse reactions to drug 02-01-20 16 Chest tightness [place] (3 sources) Latex Propensity to adverse reactions to drug 04-11-20 19 [place] (5 sources) Penicillins Propensity to adverse reactions to drug 04-24-20 15 Swelling, Rash [place] (20 sources) Propoxyphene; Translations: [propoxyphene] Drug Allergy 04-11-20 19 [place] (2 sources) Barium-Containing Compounds Propensity to adverse reactions to drug 04-24-20 15 [place] (20 sources) Other Propensity to adverse reactions 04-24-20 15 Shortness Of Breath, Other [place] (9 sources) Contrast media Propensity to adverse reactions 03-21-20 22 Vomiting [facility] (17 sources) HYDROcodone; Translations: [hydrocodone bitartrate] Drug Allergy 03-21-20 22 Itching [facility] (17 sources) Propoxyphene; Translations: [propoxyphene napsylate] Drug Allergy 03-21-20 22 Rash [facility] (4 sources) PLASTIC TAPE Allergy to substance 03-21-20 22 blistering [facility] Work Phone: (14 sources) Penicillins Allergy to substance 05-04-20 22 Anaphylaxis [facility] (20 sources) Honey bee venom Propensity to adverse reactions 04-11-20 19 [facility] (20 sources) HYDROcodone Drug Allergy 02-01-20 16 [facility] (20 sources) Latex Propensity to adverse reactions 04-11-20 19 [facility] (20 sources) Penicillins Drug Allergy 07-05-20 02 Rash, Swelling [facility] (20 sources) Barium-Containing Compounds Drug Intolerance 04-24-20 15 [facility] (20 sources) Iodinated Contrast Media Drug Intolerance 10-08-19 16 Nausea And Vomiting [facility] (7 sources) Triiodobenzoic Acids Propensity to adverse reactions 02-16-20 23 Vomiting [facility] (1 source) Acetaminophen / HYDROcodone; Translations: [acetaminophen-hy drocodone] Drug Allergy [facility] (1 source) Contrast media; Translations: [iodinated radiocontrast agents] Allergy to substance [facility] (1 source) Penicillin; Translations: [penicillins] Drug Allergy [facility] (7 sources) Penicillin G Drug Allergy 02-01-20 16 [facility] (7 sources) Wound Dressing Adhesive Drug Allergy 02-01-20 16 [facility] (1 source) Penicillins Drug allergy (disorder) 03-14-20 25 [facility] (1 source) Iodinated Contrast Media Drug allergy (disorder) 03-14-20 25 [facility] (1 source) venom-honey bee Drug allergy (disorder) 03-14-20 25 [facility] Medications Current Medications Medication Drug Class(es) [...] by mouth 3 times daily. 0 Suspended [id number] 200 actuat albuterol 0.09 mg/actuat metered dose [...] by mouth every week Vitamin D, Ergocalciferol, 64645 units capsule Take 50,000 Units by mouth [...] VITAMINS/WOMENS) TABS Take by mouth 0 Active Fcoxvlce-Jqe-Zgft-Fa-Lutein (10 sources) Start: 03-21-2019 take 1 tablet by mouth once daily Furzpaht-Yzn-Kusq-Fa-Lutein Active 1 TABLET PO DAILY March 20, 2019 11:00pm Start: 03-21-2019 take 1 tablet by jono th once daily Qauwvaoh-Rky-Hbse-Fa-Lutein Active 1 TAB LET PO DAILY March 21, 2019 12:00am Efxespxb-Mkm-Shtr-Fa-Vit K-Lut (3 sources) Start: 03-21-2019 take 1 tablet by mouth once daily Midtxtpg-Pjg-Vqsv-Fa-Vit K-Lut Active 1 TABLET PO DAILY March 21, 2019 12:00am Start: 03-21-2019 take 1 tablet by jono th once daily Efpznqfg-Mya-Bzcj-Fa-Vit K-Lut Active 1 TABLET PO DAILY March 20, 2019 11:00pm Lawsbhec-Vkr-Gmcm-Fa-Vit K-Lut 1 EACH tablet (3 sources) Start: 03-21-2019 take 1 tablet by mouth once daily Abohshgk-Bps-Qlmu-Fa-Vit K-Lut 1 EACH tablet Active 1 {tbl} PO DAILY March 21, 2019 12:00am supplement Start: 03-21-2019 take 1 tablet by jono th once daily Uycqgtrc-Bto-Drbi-Fa-Vit K-Lut 1 EACH tablet Active 1 {tbl} [...] coretta olatum (Aquaphor) ointment 1 application sennosides, fdc 8.6 mg oral tablet (4 sources) Start: [...] discharge) docusate sodium 50 mg / sennosides, fdc 8.6 mg oral tablet (1 source) Start: [...] DAILY, First dose on Thu05/14/20 at 0900 [id number] 0.3 ml EPINEPHrine 1 mg/ml auto-injector (16 [...] Fluticasone Propionate (Flonase Allergy Relief) 50 mcg/actuation [place],Suspension Active 1 NMA INTRANASAL DAILY August 24, 2022 1:00am administer into each nostril Start: 08-24-2022 take 1 spray(s) nasa l route once daily Fluticasone Propionate (Flonase Allergy Relief) 50 mcg/actuation [place],Suspension Active 1 SPRAY INTRANASAL DAILY August 24, [...] On Unit take 1 capsule by mo [facility] once daily as needed Melatonin 10 MG [...] Start: 05-13-2020 End: 05-13-2020 methylPREDNISolone sodium (S JENINFER-MEDROL) injection 40 mg metoclopramide 10 mg oral [...] End: 05-13-2020 morphine injection 4 mg nystatin [id number] unt/ml oral suspension (4 sources) Polyene Antifungal Start: 11-25-2022 End: 11-27-2022 nystatin (Mycostatin) 775020 UNIT/ML suspension 500,000 Units Start: 2019 nystatin (MYCO STATIN) 932679 UNIT/ML suspension Half a teaspoon q.i.d. Swish [...] (Elimite) 5 % cream polyethylene glycol 3350 60980 mg powder for oral solution (20 sources) [...] Start: 11-06-2022 End: 11-10-2022 5-250 mL/hr, IntraVENous, OK N, if patient receiving piggyback infusions and [...] Auto (Unsp spec) [#/Vol] 3.03 10*3/uL 0.83-4.51 [facility] Absolute neutrophil countOrd ered By: Alfred Parkinson on 04-14-2025 Neutrophils (Bld) [#/Vol] 8.0 10*3/uL High 2.0-7.7 [facility] Anion gap in Serum or Plasma Ordered By: Alfred Parkinson on 04-14-2025 Anion gap [Moles/Vol] 14 mmol/L 5-15 [facility] Automated lymphocyte count a s percentage of total leukocytesOrdered By: Alfred Parkinson on 04-14-2025 Lymphocytes/100 WBC Auto (Unsp spec) 25.5 % 19-41 [facility] BUN/creatinine ratioOrdered By: Alfred Parkinson on 04-14-2025 Urea nitrogen/Creatinine [Mass ratio] 12.9 mg/mg 10-20 [facility] Basophil percentageOrdered B y: Alfred Parkinson on 04-14-2025 Basophils/100 WBC (Bld) 0.5 % 0-1 [facility] Carbon dioxide, total [Moles /volume] in Central venous bloodOrdered By: Alfred Parkinson on 04-14-2025 CO2 [Moles/Vol] 22.4 mmol/L 21.0-32.0 [facility] Chloride assayOrdered By: Halley Parkinson on 04-14-2025 Chloride [Moles/Vol] 104 mmol/L 98-108 [facility] Eosinophil percentageOrdered By: Alfred Parkinson on 04-14-2025 Eosinophils/100 WBC (Bld) 1.0 % 0-5 [facility] Erythrocyte distribution wid th ratioOrdered By: Alfred Parkinson on 04-14-2025 Erythrocyte distribution width (RBC) [Ratio] 13.1 % 11.6-14.6 [facility] Erythrocyte distribution wid th standard deviationOrdered By: Alfred Parkinson on 04-14-2025 Erythrocyte distribution width (RBC) [Ratio] 45.4 fl High 35.1-43.9 [facility] Glomerular filtration rate ( GFR) estimation/1.73 sq m using serum, plasma, or whole bOrdered By: Alfred Parkinson on 04-14-2025 GFR/1.73 sq M.predicted among non-blacks MDRD (S/P/Bld) [Vol rate/Area] 103 mL/min/{1.73_m2} >60 [facility] Comment on above: mL/min/1.73m2 CKD-EP I Creatinine Equation (2020) Hematocrit Auto (Bld) [Volum e fraction]Ordered By: Alfred Parkinson on 04-14-2025 Hematocrit (Bld) [Volume fraction] 42.2 % 37-47 [facility] Hemoglobin measurementOrdere d By: Alfred Parkinson 04-14-2025 Hemoglobin (Bld) [Mass/Vol] 13.9 g/dL 12.0-15.0 [facility] Immature granulocytes/100 WB C Auto (Bld)Ordered By: Alfred Parkinson 04-14-2025 Immature granulocytes/100 WBC (Bld) 0.400 % 0.0-0.9 [facility] Comment on above: IG% - Immature Granu locytes (promyelocytes, myelocytes and metamyelocytes) > 1% indicates that a LEFT SHIFT is Present. MCV (mean corpuscular volume ) determinationOrdered By: Alfred Parkinson 04-14-2025 MCV (RBC) [Entitic vol] 94.6 fL 81-99 [facility] Mean corpuscular hemoglobin (MCH) determinationOrdered By: Alfred Parkinson 04-14-2025 MCH (RBC) [Entitic mass] 31.2 pg 27.0-32.0 [facility] Mean corpuscular hemoglobin concentration (MCHC) determinationOrdered By: Alfred Parkinson 04-14-2025 MCHC (RBC) [Mass/Vol] 32.9 g/dL 32-36 [facility] Mean platelet volume determi nationOrdered By: Alfred Parkinson on 04-14-2025 Platelet mean volume (Bld) [Entitic vol] 9.5 fL 6.2-12.0 [facility] Monocyte percentageOrdered B y: Alfred Parkinson on 04-14-2025 Monocytes/100 WBC (Bld) 5.4 % 0-10 [facility] Neutrophil percentageOrdered By: Alfred Parkinson on 04-14-2025 Neutrophils/100 WBC (Bld) 67.2 % 47-70 [facility] Nucleated red blood cell per centageOrdered By: Alfred Parkinson on 04-14-2025 Nucleated RBC/100 WBC (Bld) [Ratio] 0 % 0-5 [facility] Platelet countOrdered By: Halley Parkinson on 04-14-2025 Platelets (Bld) [#/Vol] 307 10*3/uL 150-450 [facility] Potassium measurement (mass/ volume)Ordered By: Alfred Parkinson on 04-14-2025 Potassium (Unsp spec) [Mass/Vol] 3.3 mmol/L 3.3-5.1 [facility] RBC Auto (Bld) [#/Vol]Ordere d By: Alfred Parkinson on 04-14-2025 RBC (Bld) [#/Vol] 4.46 10*6/uL 4.2-5.4 [facility] Serum creatinine measurement (mass/volume)Ordered By: Alfred Parkinson on 04-14-2025 Creatinine [Mass/Vol] 0.66 mg/dL Low 0.70-1.20 [facility] Serum glucose measurement (m ass/volume)Ordered By: Alfred Parkinson on 04-14-2025 Glucose [Mass/Vol] 111 mg/dL High 70-99 [facility] Serum or plasma calcium tania urement (mass/volume)Ordered By: Alfred Parkinson on 04-14-2025 Calcium [Mass/Vol] 8.8 mg/dL 7.6-11.0 [facility] Serum or plasma urea nitroge n measurement (mass/volume)Ordered By: Alfred Parkinson on 04-14-2025 Urea nitrogen [Mass/Vol] 9 mg/dL 4-19 [facility] Sodium levelOrdered By: Alfred Parkinson on 04-14-2025 Sodium [Moles/Vol] 141 mmol/L 133-145 [facility] Troponin T.cardiac [Mass/vol ume] in Serum or Plasma by High sensitivity methodOrdered By: Alfred Parkinson on 04-14-2025 Troponin T.cardiac High sensitivity method [Mass/Vol] < 6 ng/L <14 [facility] White blood cell (WBC) count Ordered By: Alfred Parkinson on 04-14-2025 WBC (Bld) [#/Vol] 11.9 10*3/uL High 4.4-11.0 [facility] Emergency Department Summary on 03-14-2025 Emergency Department Summary [facility] Medical Records Department [address] [place] [address] Emergency Department Summary 03/14/25 MR#: [id number] Acct: [id number] Name: ORTIZ MASON Rep #: [id number] : 1970 55 From: Zain Carvajal MD [...] Narrative Narrative: 55-year-old female history of prior [place], brain aneurysm, and A-fib not on blood [...] symptoms: No Recent Illness/Hospitalization : No PFSH [facility] Medical History NSTEMI (non-ST elevated myocardial infarction) Cardiac arrest COVID-19 Brain aneurysm Chronic pain Rheumatoid arthritis Kidney stones Kidney disease GERD (gastroesophageal reflux disease) Former smoker Sleep apnea Asthma Migraines Seizures Home Medications ???Medication ???Instructions ???Recorded ???Last Taken ???Type utujvzet-zhji-rjue 8 mg-folic 400 1 tab PO DAILY [...] pain Genitourinary (more content not included)... Normal [facility] Thoracic Spine 2 Viewson Thoracic Spine 2 Views [facility] Imaging Services [address] [place] [address] Thoracic Spine 2 Views MR#: [id number] Acct: [id number] Name: ORTIZ MASON Rep #: [id number] : 1970 F 55 From: Ha Burch MD PCP: Dr. Amandeep Loredo, DO Status: DEP ER Study: Thoracic Spine 2 Views Date of Exam: 03/14/25 Exam# [id number] Ordering Dr: Zain Carvajal MD EXAM: XR [...] changes thoracic spine as described. Reading Location: [facility] CC: Dr. Amandeep Loredo DO; Dr. Zain Carvajal MD [employer] Inspector: Signed Normal [facility] Emergency Department Summary on 01-05-2025 Emergency Department Summary [facility] Medical Records Department [address] [place] [address] Emergency Department Summary 01/05/25 MR#: [id number] Acct: [id number] Name: ORTIZ MASON Rep #: [id number] : 1970 54 From: Franki Flynn DO [...] and wrist were obtained through nursing triage. [facility] Medical History NSTEMI (non-ST elevated myocardial infarction) Cardiac arrest COVID-19 Brain aneurysm Chronic pain Rheumatoid arthritis Kidney stones Kidney disease GERD (gastroesophageal reflux disease) Former smoker Sleep apnea Asthma Migraines Seizures Home Medications ???Medication ???Instructions ???Recorded ???Last Taken ???Type jztgmygm-pnho-wrwg 8 mg-folic 400 1 tab PO DAILY [...] L Te (more content not included)... Normal [facility] HIP, UNI W/ Pelvis 2-3 Views on 01-05-2025 HIP, UNI W/ Pelvis 2-3 Views [facility] Imaging Services [address] [place] [address] HIP, UNI W/ Pelvis 2-3 Views MR#: [id number] Acct: [id number] Name: ORTIZ MASON Rep #: [id number] : 1970 F 54 From: Ha Guerrero MD PCP: Dr. Amandeep Loredo DO Status: REG ER Study: HIP, UNI W/ Pelvis 2-3 Views Date of Exam: Exam# [id number] Ordering Dr: Franki Flynn DO PROCEDURE: HIP, [...] 2. Additional description as above. Reading Location: [id number] CC: Dr. Franki Flynn DO; Dr. Amandeep Loredo DO [employer] Inspector: Signed Normal [facility] Wrist min 3 Viewson 01-06-20 Wrist min 3 Views [facility] Imaging Services [address] [place], [place] [id number] Wrist min 3 Views MR#: [id number] Acct: [id number] Name: ORTZI MASON Rep #: [id number] : 1970 F 54 From: Ha Guerrero MD PCP: Dr. Amandeep Loredo DO Status: REG ER Study: Wrist min 3 Views Date of Exam: 01/05/25 Exam# [id number] Ordering Dr: Franki Flynn DO PROCEDURE: WRIST [...] without visible acute displaced fracture. Reading Location: [id number] CC: Dr. Franki Flynn DO; Dr. Amandeep Loredo DO [employer] Inspector: Signed Normal [facility] 12 Lead EKGon 10-20-2024 12 Lead EKG [facility] Cardiovascular Services [address] [place] [address] 12 Lead EKG 10/20/242050 MR#: [id number] Acct: [id number] Name: ORTIZ MASON Rep #: [id number] : 1970 54 From: Dawit Christensen MD [...] was found Confirmed by Dawit Christensen ([id number]), communications editor MAYRA SMALL ([id number]) on 10/21/2024 9:45:13 AM Referred By: Luis Angel Morales Confirmed By: Dawit Christensen 10/21/24 0945 Date Dawit Christensen MD CC: Dr. Amandeep Loredo DO; Dr. Luis Angel Morales DO Signed [facility] Abdomen/Pelvis without Conto n 10-20-2024 Abdomen/Pelvis without Cont [facility] Imaging Services [address] [place], [place] [id number] Abdomen/Pelvis without Cont MR#: [id number] Acct: [id number] Name: ORTIZ MASON Rep #: [id number] : 1970 F 54 From: Bill Huff MD PCP: Dr. Amandeep Loredo DO Status: REG ER Study: Abdomen/Pelvis without Cont Date of Exam: 09/25 03/17 Exam# [id number] Ordering Dr: Luis Angel Morales DO PROCEDURE: [...] use of iterative reconstruction technique). Reading Location: [facility] CC: Dr. Amandeep Loredo DO; Dr. Luis Angel Morales DO [employer] We[employer] Inspector: Signed Normal [facility] Absolute lymphocyte countOrd ered By: Luis Angel Morales on 10-20-2024 Lymphocytes Auto (Unsp spec) [#/Vol] 3.21 10*3/uL 0.83-4.51 [facility] Absolute neutrophil countOrd ered By: Luis Angel Morales on 10-20-2024 Neutrophils (Bld) [#/Vol] 6.7 10*3/uL 2.0-7.7 [facility] Automated lymphocyte count a s percentage of total leukocytesOrdered By: Luis Angel Morales on 10-20-2024 Lymphocytes/100 WBC Auto (Unsp spec) 29.6 % 19-41 [facility] BUN/creatinine ratioOrdered By: Luis Angel Morales on 10-20-2024 Urea nitrogen/Creatinine [Mass ratio] 20.7 mg/mg High 10-20 [facility] Basophil percentageOrdered B y: Luis Angel Morales on 10-20-2024 Basophils/100 WBC (Bld) 0.6 % 0-1 [facility] Bilirubin Test strip Ql (U)O rdered By: Luis Angel Morales on 10-20-2024 Bilirubin Ql (U) Negative Negative [facility] Bilirubin, totalOrdered By: Luis Angel Morales on 10-20-2024 Bilirubin [Mass/Vol] 0.17 mg/dL 0.00-1.30 [facility] CBC W/Diff, Automatedon 09-25 Absolute Lymph 3.21 X10 3/uL Normal 0.83-4.51 [facility] Comment on above: Performed By: #### L 500.4050, L501.2450, L100.0100 ####[facility] [address] [place], [address] Absolute Neut 6.7 X10 3/uL Normal 2.0-7.7 [facility] Comment on above: Performed By: #### L 500.4050, L501.2450, L100.0100 ####[facility] [address] [place], [address] Basophils/100 WBC (Bld) 0.6 % Normal 0-1 [facility] Comment on above: Performed By: #### L 500.4050, L501.2450, L100.0100 ####[facility] [address] [place], [address] Eosinophils/100 WBC (Bld) 1.4 % Normal 0-5 [facility] Comment on above: Performed By: #### L 500.4050, L501.2450, L100.0100 ####[facility] [address] [place], [address] Erythrocyte distribution width (RBC) [Ratio] 12.8 % Normal 11.6-14.6 [facility] Comment on above: Performed By: #### L 500.4050, L501.2450, L100.0100 ####[facility] [address] [place], [address] Hematocrit (Bld) [Volume fraction] 45.4 % Normal 37-47 [facility] Comment on above: Performed By: #### L 500.4050, L501.2450, L100.0100 ####[facility] [address] [place], [address] Hemoglobin (Bld) [Mass/Vol] 15.1 g/dL High 12.0-15.0 [facility] Comment on above: Performed By: #### L 500.4050, L501.2450, L100.0100 ####[facility] [address] [place], [address] IG% 0.400 Normal 0.0-0.9 [facility] Comment on above: Result Comment: IG% - Immature Granulocytes (promyelocytes, myelocytes and metamyelocytes) > 1% indicates that a LEFT SHIFT is Present. Performed By: #### L 500.4050, L501.2450, L100.0100 ####[facility] [address] [place], [address] Lymphocytes/100 WBC (Bld) 29.6 % Normal 19-41 [facility] Comment on above: Performed By: #### L 500.4050, L501.2450, L100.0100 ####[facility] [address] [place], [address] MCH (RBC) [Entitic mass] 30.9 pg Normal 27.0-32.0 [facility] Comment on above: Performed By: #### L 500.4050, L501.2450, L100.0100 ####[facility] [address] [place], [address] MCHC (RBC) [Mass/Vol] 33.3 g/dL Normal 32-36 [facility] Comment on above: Performed By: #### L 500.4050, L501.2450, L100.0100 ####[facility] [address] [place], [address] MCV (RBC) [Entitic vol] 92.8 fL Normal 81-99 [facility] Comment on above: Performed By: #### L 500.4050, L501.2450, L100.0100 ####[facility] [address] [place], [address] Monocytes/100 WBC (Bld) 6.1 % Normal 0-10 [facility] Comment on above: Performed By: #### L 500.4050, L501.2450, L100.0100 ####[facility] [address] [place], [address] Neutrophils/100 WBC (Bld) 61.9 % Normal 47-70 [facility] Comment on above: Performed By: #### L 500.4050, L501.2450, L100.0100 ####[facility] [address] [place], [address] Nucleated RBC (Bld) [#/Vol] 0 10*3/uL Normal 0-5 [facility] Comment on above: Performed By: #### L 500.4050, L501.2450, L100.0100 ####[facility] [address] [place], [address] Platelet mean volume (Bld) [Entitic vol] 9.8 fL Normal 6.2-12.0 [facility] Comment on above: Performed By: #### L 500.4050, L501.2450, L100.0100 ####[facility] [address] [place], [address] Platelets (Bld) [#/Vol] 312 10*3/uL Normal 150-450 [facility] Comment on above: Performed By: #### L 500.4050, L501.2450, L100.0100 ####[facility] [address] [place], [address] RBC (Bld) [#/Vol] 4.89 10*6/uL Normal 4.2-5.4 [facility] Comment on above: Performed By: #### L 500.4050, L501.2450, L100.0100 ####[facility] [address] [place], [address] RDW SD 43.4 fl Normal 35.1-43.9 [facility] Comment on above: Performed By: #### L 500.4050, L501.2450, L100.0100 ####[facility] [address] [place], [address] WBC (Bld) [#/Vol] 10.8 10*3/uL Normal 4.4-11.0 [facility] Comment on above: Performed By: #### L 500.4050, L501.2450, L100.0100 ####[facility] [address] [place], [address] Carbon dioxide measurementOr dered By: Luis Angel Morales on 10-20-2024 CO2 [Moles/Vol] 21.1 mmol/L Low 22.0-29.0 [facility] Chloride measurementOrdered By: Luis Angel Morales on 10-20-2024 Chloride [Moles/Vol] 104 mmol/L 96-108 [facility] Comprehensive Metabolic Prof ilon 10-20-2024 Albumin [Mass/Vol] 4.0 g/dL Normal 3.5-5.0 [facility] Comment on above: Performed By: #### L 500.4050, L501.2450, L100.0100 ####[facility] [address] [place], [address] Albumin/Globulin [Mass ratio] 1.3 {ratio} Normal 0.9-2.4 [facility] Comment on above: Performed By: #### L 500.4050, L501.2450, L100.0100 ####[facility] [address] [place], [address] ALK PHOS 136 U/L High 35-104 [facility] Comment on above: Performed By: #### L 500.4050, L501.2450, L100.0100 ####[facility] [address] [place], [address] ALT [Catalytic activity/Vol] 9 U/L Normal <=34 [facility] Comment on above: Performed By: #### L 500.4050, L501.2450, L100.0100 ####[facility] [address] [place], [address] Anion gap [Moles/Vol] 11 mmol/L Normal 5-15 [facility] Comment on above: Performed By: #### L 500.4050, L501.2450, L100.0100 ####[facility] [address] [place], [address] AST [Catalytic activity/Vol] 20 U/L Normal <=31 [facility] Comment on above: Result Comment: Hemo lysis present, Results??could be affected. ?? Performed By: #### L 500.4050, L501.2450, L100.0100 ####[facility] [address] [place], [address] Bilirubin [Mass/Vol] 0.17 mg/dL Normal 0.00-1.30 [facility] Comment on above: Performed By: #### L 500.4050, L501.2450, L100.0100 ####[facility] [address] [place], [address] BUN/CRE 20.7 RATIO High 10-20 [facility] Comment on above: Performed By: #### L 500.4050, L501.2450, L100.0100 ####[facility] [address] [place], [address] Calcium [Mass/Vol] 9.0 mg/dL Normal 7.6-11.0 [facility] Comment on above: Performed By: #### L 500.4050, L501.2450, L100.0100 ####[facility] [address] [place], [address] Chloride [Moles/Vol] 104 mmol/L Normal 96-108 [facility] Comment on above: Performed By: #### L 500.4050, L501.2450, L100.0100 ####[facility] [address] [place], [address] CO2 [Moles/Vol] 21.1 mmol/L Low 22.0-29.0 [facility] Comment on above: Performed By: #### L 500.4050, L501.2450, L100.0100 ####[facility] [address] [place], [address] Creatinine [Mass/Vol] 0.59 mg/dL Low 0.70-1.20 [facility] Comment on above: Performed By: #### L 500.4050, L501.2450, L100.0100 ####[facility] [address] [place], [address] ECRCL 126.27 ml/min Normal [facility] Comment on above: Performed By: #### L 500.4050, L501.2450, L100.0100 ####[facility] [address] [place], [address] GFR/1.73 sq M.predicted among non-blacks MDRD (S/P/Bld) [Vol rate/Area] 106 mL/min/{1.73_m2} Normal >60 [facility] Comment on above: Result Comment: mL/m in/1.73m2 CKD-EPI Creatinine Equation (2020) Performed By: #### L 500.4050, L501.2450, L100.0100 ####[facility] [address] [place], [address] Globulin (S) [Mass/Vol] 3.0 g/dL Normal 2.2-4.2 [facility] Comment on above: Performed By: #### L 500.4050, L501.2450, L100.0100 ####[facility] [address] [place], [address] Glucose [Mass/Vol] 93 mg/dL Normal 70-99 [facility] Comment on above: Performed By: #### L 500.4050, L501.2450, L100.0100 ####[facility] [address] [place], [address] Potassium [Moles/Vol] 3.9 mmol/L Normal 3.3-5.1 [facility] Comment on above: Result Comment: Hemo lysis present, Results??could be affected. ?? Performed By: #### L 500.4050, L501.2450, L100.0100 ####[facility] [address] [place], [address] Sodium [Moles/Vol] 136 mmol/L Normal 133-145 [facility] Comment on above: Performed By: #### L 500.4050, L501.2450, L100.0100 ####[facility] [address] [place], [address] T PROT 7.0 g/dL Normal 5.9-8.4 [facility] Comment on above: Performed By: #### L 500.4050, L501.2450, L100.0100 ####[facility] [address] [place], [address] Urea nitrogen [Mass/Vol] 12 mg/dL Normal 4-19 [facility] Comment on above: Performed By: #### L 500.4050, L501.2450, L100.0100 ####[facility] [address] [place], [address] Emergency Department Summary on 10-20-2024 Emergency Department Summary [facility] Medical Records Department [address] [place] [address] Emergency Department Summary 10/20/24 MR#: [id number] Acct: [id number] Name: ORTIZ MASON Rep #: [id number] : 1970 54 From: Luis Angel Morales [...] use states that she does smoke cigarettes. [facility] Medical History NSTEMI (non-ST elevated myocardial infarction) Cardiac arrest COVID-19 Brain aneurysm Chronic pain Rheumatoid arthritis Kidney stones Kidney disease GERD (gastroesophageal reflux disease) Former smoker Sleep apnea Asthma Migraines Seizures Home Medications ???Medication ???Instructions ???Recorded ???Last Taken ???Type tccaletc-ukzw-tdiq 8 mg-folic 400 1 tab PO DAILY [...] conjunctival inj (more content not included)... Normal [facility] Eosinophil percentageOrdered By: Luis Angel Morales on 10-20-2024 Eosinophils/100 WBC (Bld) 1.4 % 0-5 [facility] Erythrocyte distribution wid th ratioOrdered By: Luis Angel Morales on 10-20-2024 Erythrocyte distribution width (RBC) [Ratio] 12.8 % 11.6-14.6 [facility] Erythrocyte distribution wid th standard deviationOrdered By: Luis Angel Morales on 10-20-2024 Erythrocyte distribution width (RBC) [Ratio] 43.4 fl 35.1-43.9 [facility] Glomerular filtration rate ( GFR) estimation/1.73 sq m using serum, plasma, or whole bOrdered By: Luis Angel Morales on 10-20-2024 GFR/1.73 sq M.predicted among non-blacks MDRD (S/P/Bld) [Vol rate/Area] 106 mL/min/{1.73_m2} >60 [facility] Comment on above: mL/min/1.73m2 CKD-EP I Creatinine Equation (2020) Hematocrit Auto (Bld) [Volum e fraction]Ordered By: Luis Angel Morales on 10-20-2024 Hematocrit (Bld) [Volume fraction] 45.4 % 37-47 [facility] Hemoglobin measurementOrdere d By: Luis Angel Morales on 10-20-2024 Hemoglobin (Bld) [Mass/Vol] 15.1 g/dL High 12.0-15.0 [facility] Immature granulocytes/100 WB C Auto (Bld)Ordered By: Luis Angel Morales on 10-20-2024 Immature granulocytes/100 WBC (Bld) 0.400 % 0.0-0.9 [facility] Comment on above: IG% - Immature Granu locytes (promyelocytes, myelocytes and metamyelocytes) > 1% indicates that a LEFT SHIFT is Present. Ketones Test strip Ql (U)Ord ered By: Luis Angel Morales on 10-20-2024 Ketones Ql (U) Negative Negative [facility] Laboratory - Chemistry and C hemistry - challengeOrdered By: Luis Angel Morales on 10-20-2024 AST [Catalytic activity/Vol] 20 U/L <32 [facility] Comment on above: Hemolysis present, R esults could be affected. Lipaseon 10-20-2024 Lipase [Catalytic activity/Vol] 28 U/L Normal 13-75 [facility] Comment on above: Result Comment: Gibson ferreira note: LIPASE revised reference range effective 22. New Lipase methodology. Expected to produce lower values than the previous assay method. NEW Reference Range: 13 - 75 U/L Performed By: #### L 500.4050, L501.2450, L100.0100 ####[facility] [address] [place], [address] Lipase measurementOrdered By : Luis Angel Morales on 10-20-2024 Lipase [Catalytic activity/Vol] 28 U/L 13-75 [place] [facility] Comment on above: Please note:LIPASE r evised reference range effective 22. New Lipase methodology. Expected to produce lower values than the previous assay method. NEW Reference Range: 13 - 75 U/L MCV (mean corpuscular volume ) determinationOrdered By: Luis Angel Morales on 10-20-2024 MCV (RBC) [Entitic vol] 92.8 fL 81-99 [facility] Mean corpuscular hemoglobin (MCH) determinationOrdered By: Luis Angel Morales on 10-20-2024 MCH (RBC) [Entitic mass] 30.9 pg 27.0-32.0 [facility] Mean corpuscular hemoglobin concentration (MCHC) determinationOrdered By: Luis Angel Morales on 10-20-2024 MCHC (RBC) [Mass/Vol] 33.3 g/dL 32-36 [facility] Mean platelet volume determi nationOrdered By: Luis Angel Morales on 10-20-2024 Platelet mean volume (Bld) [Entitic vol] 9.8 fL 6.2-12.0 [facility] Microscopic analysis of urin e for red blood cells (RBC)Ordered By: Luis Angel Morales on 10-20-2024 Microscopic analysis of urine for red blood cells (RBC) 0-5 SEEN /hpf 0-5 [facility] Monocyte percentageOrdered B y: Luis Angel Morales on 10-20-2024 Monocytes/100 WBC (Bld) 6.1 % 0-10 [facility] Mucus LM Ql (Urine sed)Order ed By: Luis Angel Morales on 10-20-2024 Mucus Ql (Urine sed) 0 SEEN /hpf [facility] Neutrophil percentageOrdered By: Luis Angel Morales on 10-20-2024 Neutrophils/100 WBC (Bld) 61.9 % 47-70 [facility] Nitrite Test strip Ql (U)Ord ered By: Luis Angel Morales on 10-20-2024 Nitrite Ql (U) Negative Negative [facility] Nucleated red blood cell per centageOrdered By: Luis Angel Morales on 10-20-2024 Nucleated RBC/100 WBC (Bld) [Ratio] 0 % 0-5 [facility] Platelet countOrdered By: Martínez Morales on 10-20-2024 Platelets (Bld) [#/Vol] 312 10*3/uL 150-450 [facility] Protein Test strip Ql (U)Ord ered By: Luis Angel Morales on 10-20-2024 Protein Ql (U) 15 mg/dl High Negative [facility] RBC Auto (Bld) [#/Vol]Ordere d By: Luis Angel Morales on 10-20-2024 RBC (Bld) [#/Vol] 4.89 10*6/uL 4.2-5.4 [facility] Serum creatinine measurement (mass/volume)Ordered By: Luis Angel Morales on 10-20-2024 Creatinine [Mass/Vol] 0.59 mg/dL Low 0.70-1.20 [facility] Serum globulin measurementOr dered By: Luis Angel Morales on 10-20-2024 Globulin (S) [Mass/Vol] 3.0 g/dL 2.2-4.2 [facility] Serum glucose measurement (m ass/volume)Ordered By: Luis Angel Morales on 10-20-2024 Glucose [Mass/Vol] 93 mg/dL 70-99 [facility] Serum or plasma alanine villegas otransferase (ALT) measurementOrdered By: Luis Angel Morales on 10-20-2024 ALT [Catalytic activity/Vol] 9 U/L <35 [facility] Serum or plasma albumin tania urement (mass/volume)Ordered By: Luis Angel Morales on 10-20-2024 Albumin [Mass/Vol] 4.0 g/dL 3.5-5.0 [facility] Serum or plasma albumin/glob ulin mass ratioOrdered By: Luis Angel Morales on 10-20-2024 Albumin/Globulin [Mass ratio] 1.3 {ratio} 0.9-2.4 [facility] Serum or plasma alkaline kiki sphatase measurementOrdered By: Luis Angel Morales on 10-20-2024 ALP [Catalytic activity/Vol] 136 U/L High 35-104 [facility] Serum or plasma anion gap de termination (moles/volume)Ordered By: Luis Angel Morales on 10-20-2024 Anion gap [Moles/Vol] 11 mmol/L 5-15 [facility] Serum or plasma calcium tania urement (mass/volume)Ordered By: Luis Angel Morales on 10-20-2024 Calcium [Mass/Vol] 9.0 mg/dL 7.6-11.0 [facility] Serum or plasma potassium me asurementOrdered By: Luis Angel Morales on 10-20-2024 Potassium [Moles/Vol] 3.9 mmol/L 3.3-5.1 [facility] Comment on above: Hemolysis present, R esults could be affected. Serum or plasma sodium measu rement (moles/volume)Ordered By: Luis Angel Morales on 10-20-2024 Sodium [Moles/Vol] 136 mmol/L 133-145 [facility] Serum or plasma urea nitroge n measurement (mass/volume)Ordered By: Luis Angel Morales on 10-20-2024 Urea nitrogen [Mass/Vol] 12 mg/dL 4-19 [facility] Squamous epithelial cells de tection in urine sediment by light microscopyOrdered By: Luis Angel Morales on 10-20-2024 Epithelial cells.squamous LM Ql (Urine sed) 0-5 SEEN /hpf 5-10 [facility] Total proteinOrdered By: Janes Morales on 10-20-2024 Protein [Mass/Vol] 7.0 g/dL 5.9-8.4 [facility] Urinalysis, Completeon 10-20 RBC 0-5 SEEN Normal 0-5 [facility] Comment on above: Order Comment: CLEAN CATCH Performed By: #### L 400.0001 ####[facility] [address] [place], [place], [address] EPI,SQUAMOUS 0-5 SEEN Normal 5-10 [facility] Comment on above: Order Comment: CLEAN CATCH Performed By: #### L 400.0001 ####[facility] [address] [place], [address] WBC 5-10 SEEN Normal 0-5 [facility] Comment on above: Order Comment: CLEAN CATCH Performed By: #### L 400.0001 ####[facility] [address] [place], [address] BACTERIA 0 SEEN Normal None Seen [facility] Comment on above: Order Comment: CLEAN CATCH Performed By: #### L 400.0001 ####[facility] [address] [place], [place], [address] Mucus Ql (Urine sed) 0 SEEN Normal [facility] Comment on above: Order Comment: CLEAN CATCH Performed By: #### L 400.0001 ####[facility] [address] [place], [place], [id number] Urine clarityOrdered By: Janes Morales on 10-20-2024 Clarity (U) Clear Clear [facility] Urine color determinationOrd ered By: Luis Angel Morales on 10-20-2024 Color (U) Yellow Yellow [facility] Urine glucose detectionOrder ed By: Luis Angel Morales on 10-20-2024 Glucose Ql (U) Normal mg/dl Normal [facility] Urine leukocyte esterase det ection by dipstickOrdered By: Luis Angel Morales on 10-20-2024 Leukocyte esterase Test strip Ql (U) 25 /ul High Negative [facility] Urine pHOrdered By: Luis Angel moody on 10-20-2024 pH (U) 6.0 [pH] 5.0 - 8.0 [facility] Urine sediment bacteria coun t by microscopy (number/high power field)Ordered By: Luis Angel Morales on 10-20-2024 Bacteria LM.HPF (Urine sed) [#/Area] 0 /[HPF] None Seen [facility] Urine specific gravity measu rementOrdered By: Luis Angel Morales on 10-20-2024 Specific gravity (U) [Rel density] 1.015 1.002-1.030 [facility] Urine urobilinogen measureme ntOrdered By: Luis Angel Morales on 10-20-2024 Urobilinogen Ql (U) Normal mg/dl Normal [facility] White blood cell (WBC) count Ordered By: Luis Angel Morales on 10-20-2024 WBC (Bld) [#/Vol] 10.8 10*3/uL 4.4-11.0 [facility] White blood cell countOrdere d By: Luis Angel Morales on 10-20-2024 White blood cell count 5-10 SEEN /hpf 0-5 [facility] 36on 09-29-2024 36 S: Patient spoke wit h [facility] nurse regarding cough and chest pain. [...] today in PCP or POD office in [place]. Patient declined POD appointment in [place] and will go to an urgent care [...] for Disposition Wheezing is present Protocols used: [id number] [facility] Emergency Department Summary on 09-04-2024 Emergency Department Summary [facility] Medical Records Department [address] [place] [address] Emergency Department Summary 09/04/24 MR#: [id number] Acct: [id number] Name: ORTIZ MASON Rep #: [id number] : 1970 54 From: Narciso Baron DO PCP: Dr. Amandeep Loredo, DO Status:REG ER Location: ED HPI History of Present Illness Chief Complaint: Fall [facility] Medical History NSTEMI (non-ST elevated myocardial infarction) Cardiac arrest COVID-19 Brain aneurysm Chronic pain Rheumatoid arthritis Kidney stones Kidney disease GERD (gastroesophageal reflux disease) Former smoker Sleep apnea Asthma Migraines Seizures Home Medications ???Medication ???Instructions ???Recorded ???Last Taken ???Type ukxpgdvb-vrig-trbs 8 mg-folic 400 1 tab PO DAILY [...] Oxygen Delivery Method Room Air Room Air [facility] Narrative Medical decision making narrative: HISTORY OF [...] intact strengt (more content not included)... Normal [facility] HIP, UNI W/ Pelvis 2-3 Views on 09-04-2024 HIP, UNI W/ Pelvis 2-3 Views [facility] Imaging Services [address] [place], [place] [id number] HIP, UNI W/ Pelvis 2-3 Views MR#: [id number] Acct: [id number] Name: ORTIZ MASON Rep #: [id number] : 1970 F 54 From: Beverly pedraza MD PCP: Dr. Amandeep Loredo DO Status: REG ER Study: HIP, UNI W/ Pelvis 2-3 Views Date of Exam: 08/17 Exam# [id number] Ordering Dr: [place] [id number] INDICATION: left hip pain EXAMINATION/TECHNIQUE: X-RAY - [...] Amandeep Loredo DO; Dr. Narciso Baron DO Belting And Webbing Inspector: Signed Normal [facility] Emergency Department Summary on 08-07-2024 Emergency Department Summary [facility] Medical Records Department [address] [place] [address] Emergency Department Summary 08/07/24 MR#: [id number] Acct: [id number] Name: ORTIZ MASON Rep #: [id number] : 1970 54 From: Dianna QUINTANA PCP: Dr. Amandeep Loredo DO Status:REG [...] her right leg. She denies other injury. [facility] Medical History NSTEMI (non-ST elevated myocardial infarction) Cardiac arrest COVID-19 Brain aneurysm Chronic pain Rheumatoid arthritis Kidney stones Kidney disease GERD (gastroesophageal reflux disease) Former smoker Sleep apnea Asthma Migraines Seizures Home Medications ???Medication ???Instructions ???Recorded ???Last Taken ???Type pnkywxuh-qnqz-hqpy 8 mg-folic 400 1 tab PO DAILY [...] 70 pound (more content not included)... Normal [facility] Knee 3 Viewson 08-07-2024 Knee 3 Views [facility] Imaging Services [address] [place], [place] [id number] Knee 3 Views MR#: [id number] Acct: [id number] Name: ORTIZ MASON Rep #: [id number] : 1970 F 54 From: Delbert rebolledo MD PCP: Dr. Amandeep Loredo, DO Status: REG ER Study: Knee 3 Views Date of Exam: 08/07/24 Exam# [id number] Ordering Dr: Dianna Seo [id number] EXAM: XR RIGHT KNEE, 3 VIEWS CLINICAL [...] CC: Dr. Amandeep Loredo, ; LILIAN Alcocer Belting And Webbing Inspector: Signed [facility] 36on 07-14-2024 36 Spoke to pt [...] will try the recommendations and states understanding. [facility] 36 I'm sorry to hear ab [...] Dr. Jerez for GNS interrogation. Thanks. Normal [facility] 36 Pt called today arias use she [...] her phone is a business phone. Normal [facility] Basic Metabolic Profile (BMP )on 06-29-2024 BUN/CRE 18.2 RATIO Normal 10-20 [facility] Comment on above: Performed By: #### L 500.2500, L100.0100 ####[facility] [address] [place], [address] CA,Total 8.8 mg/dL Normal 8.5-10.1 [facility] Comment on above: Performed By: #### L 500.2500, L100.0100 ####[facility] [address] [place], [address] Chloride [Moles/Vol] 112 mmol/L High 98-107 [facility] Comment on above: Performed By: #### L 500.2500, L100.0100 ####[facility] [address] [place], [address] CO2 [Moles/Vol] 24.0 mmol/L Normal 21.0-32.0 [facility] Comment on above: Performed By: #### L 500.2500, L100.0100 ####[facility] [address] [place], [address] Creatinine [Mass/Vol] 0.55 mg/dL Normal 0.55-1.02 [facility] Comment on above: Result Comment: The validity of the calculated GFR GFRAA in patients over 70 years has not been determined. Clinical correlation is essential. Performed By: #### L 500.2500, L100.0100 ####[facility] [address] [place], [address] ECRCL 131.95 ml/min Normal [facility] Comment on above: Performed By: #### L 500.2500, L100.0100 ####[facility] [address] [place], [address] EST GFR - AA 147 mL/min Normal >60 [facility] Comment on above: Result Comment: Afri can Palestinian GFR Calc Performed By: #### L 500.2500, L100.0100 ####[facility] [address] [place], [address] GAP 5 Normal 5-15 [facility] Comment on above: Performed By: #### L 500.2500, L100.0100 ####[facility] [address] [place], [address] GFR/1.73 sq M.predicted among non-blacks MDRD (S/P/Bld) [Vol rate/Area] 122 mL/min/{1.73_m2} Normal >60 [facility] Comment on above: Result Comment: Non- GFR Calc Performed By: #### L 500.2500, L100.0100 ####[facility] [address] [place], [address] Glucose [Mass/Vol] 100 mg/dL Normal 74-106 [facility] Comment on above: Result Comment: Fast ing Glucose result from 100 to 125 mg/dL suggests IMPAIRED HOMEOSTASIS per A.D.A. criteria. Performed By: #### L 500.2500, L100.0100 ####[facility] [address] [place], [address] Potassium [Moles/Vol] 4.0 mmol/L Normal 3.5-5.1 [facility] Comment on above: Performed By: #### L 500.2500, L100.0100 ####[facility] [address] [place], [address] Sodium [Moles/Vol] 141 mmol/L Normal 136-145 [facility] Comment on above: Performed By: #### L 500.2500, L100.0100 ####[facility] [address] [place], [address] Urea nitrogen [Mass/Vol] 10 mg/dL Normal 7-18 [facility] Comment on above: Performed By: #### L 500.2500, L100.0100 ####[facility] [address] [place], [address] CBC W/Diff, Automatedon 11-0 6-2024 Absolute Lymph 2.29 X10 3/uL Normal 0.83-4.51 [facility] Comment on above: Performed By: #### L 100.0100 #### [facility] Laboratory [address] [place], [address] Absolute Neut 2.3 X10 3/uL Normal 2.0-7.7 [facility] Comment on above: Performed By: #### L 100.0100 #### [facility] [address] [place], [address] Basophils/100 WBC (Bld) 0.8 % Normal 0-1 [facility] Comment on above: Performed By: #### L 100.0100 #### [facility] [address] [place], [address] Eosinophils/100 WBC (Bld) 2.5 % Normal 0-5 [facility] Comment on above: Performed By: #### L 100.0100 #### [facility] [address] [place], [address] Erythrocyte distribution width (RBC) [Ratio] 12.2 % Normal 11.6-14.6 [facility] Comment on above: Performed By: #### L 100.0100 #### [facility] [address] [place], [address] Hematocrit (Bld) [Volume fraction] 42.6 % Normal 37-47 [facility] Comment on above: Performed By: #### L 100.0100 #### [facility] [address] [place], [address] Hemoglobin (Bld) [Mass/Vol] 14.1 g/dL Normal 12.0-15.0 [facility] Comment on above: Performed By: #### L 100.0100 #### [facility] [address] [place], [address] IG% 0.200 Normal 0.0-0.9 [facility] Comment on above: Result Comment: IG% - Immature Granulocytes (promyelocytes, myelocytes and metamyelocytes) > 1% indicates that a LEFT SHIFT is Present. Performed By: #### L 100.0100 #### [facility] [address] [place], [address] Lymphocytes/100 WBC (Bld) 43.9 % High 19-41 [facility] Comment on above: Performed By: #### L 100.0100 #### [facility] [address] [place], [address] MCH (RBC) [Entitic mass] 31.2 pg Normal 27.0-32.0 [facility] Comment on above: Performed By: #### L 100.0100 #### [facility] [address] [place], [address] MCHC (RBC) [Mass/Vol] 33.1 g/dL Normal 32-36 [facility] Comment on above: Performed By: #### L 100.0100 #### [facility] [address] [place], [address] MCV (RBC) [Entitic vol] 94.2 fL Normal 81-99 [facility] Comment on above: Performed By: #### L 100.0100 #### [facility] [address] [place], [address] Monocytes/100 WBC (Bld) 8.2 % Normal 0-10 [facility] Comment on above: Performed By: #### L 100.0100 #### [facility] [address] [place], [address] Neutrophils/100 WBC (Bld) 44.4 % Low 47-70 [facility] Comment on above: Performed By: #### L 100.0100 #### [facility] [address] [place], [address] Nucleated RBC (Bld) [#/Vol] 0 10*3/uL Normal 0-5 [facility] Comment on above: Performed By: #### L 100.0100 #### [facility] [address] [place], [address] Platelet mean volume (Bld) [Entitic vol] 9.6 fL Normal 6.2-12.0 [facility] Comment on above: Performed By: #### L 100.0100 #### [facility] [address] [place], [address] Platelets (Bld) [#/Vol] 262 10*3/uL Normal 150-450 [facility] Comment on above: Performed By: #### L 100.0100 #### [facility] [address] [place], [address] RBC (Bld) [#/Vol] 4.52 10*6/uL Normal 4.2-5.4 [facility] Comment on above: Performed By: #### L 100.0100 #### [facility] [address] [place], [address] RDW SD 42.3 fl Normal 35.1-43.9 [facility] Comment on above: Performed By: #### L 100.0100 #### [facility] [address] [place], [address] WBC (Bld) [#/Vol] 5.2 10*3/uL Normal 4.4-11.0 [facility] Comment on above: Performed By: #### L 100.0100 #### [facility] [address] [place], [address] Absolute Neut Normal 2.0-7.7 [facility] Comment on above: Result Comment: This specimen has been REJECTED due to Laboratory criteria: Clotted. DIANE ER has been notified of need of recollection. 06/29/24 1035 [place] [place] Performed By: #### L 500.2500, L100.0100 ####[facility] [address] [place], [address] HCT Normal 37-47 [facility] Comment on above: Result Comment: This specimen has been REJECTED due to Laboratory criteria: Clotted. DIANE ER has been notified of need of recollection. 06/29/24 1035 [place] Performed By: #### L 500.2500, L100.0100 ####[facility] [address] [place], [address] HGB Normal 12.0-15.0 [facility] Comment on above: Result Comment: This specimen has been REJECTED due to Laboratory criteria: Clotted. HALLEY CONTRERAS has been notified of need of recollection. 06/29/24 1035 [place] Performed By: #### L 500.2500, L100.0100 ####[facility] [address] [place], [address] MCH Normal 27.0-32.0 [facility] Comment on above: Result Comment: This specimen has been REJECTED due to Laboratory criteria: Clotted. DIANE ER has been notified of need of recollection. 06/29/24 1035 [place] Performed By: #### L 500.2500, L100.0100 ####[facility] [address] [place], [address] MCHC Normal 32-36 [facility] Comment on above: Result Comment: This specimen has been REJECTED due to Laboratory criteria: Clotted. DIANE ER has been notified of need of recollection. 06/29/24 1035 [place] Performed By: #### L 500.2500, L100.0100 ####[facility] [address] [place], [address] MCV Normal 81-99 [facility] Comment on above: Result Comment: This specimen has been REJECTED due to Laboratory criteria: Clotted. DIANE ER has been notified of need of recollection. 06/29/24 1035 [place] Performed By: #### L 500.2500, L100.0100 ####[facility] [address] [place], [address] NEUT% Normal 47-70 [facility] Comment on above: Result Comment: This specimen has been REJECTED due to Laboratory criteria: Clotted. DIANE ER has been notified of need of recollection. 06/29/24 1035 [place] Performed By: #### L 500.2500, L100.0100 ####[facility] [address] [place], [address] PLT Normal 150-450 [facility] Comment on above: Result Comment: This specimen has been REJECTED due to Laboratory criteria: Clotted. DIANE ER has been notified of need of recollection. 06/29/24 1035 [place] Performed By: #### L 500.2500, L100.0100 ####[facility] [address] [place], [address] RBC Normal 4.2-5.4 [facility] Comment on above: Result Comment: This specimen has been REJECTED due to Laboratory criteria: Clotted. DIANE, ER has been notified of need of recollection. 06/29/24 1035 [place] Performed By: #### L 500.2500, L100.0100 ####[facility] [address] [place], [address] RDW CV Normal 11.6-14.6 [facility] Comment on above: Result Comment: This specimen has been REJECTED due to Laboratory criteria: Clotted. DIANE, ER has been notified of need of recollection. 06/29/24 1035 [place] Performed By: #### L 500.2500, L100.0100 ####[facility] [address] [place], [address] RDW SD Normal 35.1-43.9 [facility] Comment on above: Result Comment: This specimen has been REJECTED due to Laboratory criteria: Clotted. DIANE, ER has been notified of need of recollection. 06/29/24 1035 [place] Performed By: #### L 500.2500, L100.0100 ####[facility] [address] [place], [address] WBC Normal 4.4-11.0 [facility] Comment on above: Result Comment: This specimen has been REJECTED due to Laboratory criteria: Clotted. DIANE, ER has been notified of need of recollection. 06/29/24 1035 [place] [place] Performed By: #### L 500.2500, L100.0100 ####[facility] [address] [place], [address] Emergency Department Summary on 06-29-2024 Emergency Department Summary [facility] Medical Records Department [address] [place] [address] Emergency Department Summary 06/29/24 MR#: [id number] Acct: [id number] Name: ORTIZ MASON Rep #: [id number] : 1970 54 From: Kenny Kaye MD [...] back, one of the surgeons was in [place] she states, but she does not actively follow with any back specialists. The reason for the surgeries sounds like it was probably severe arthritis/DDD according to her description. [facility] Medical History (Updated 06/29/24 @ 12:[address] Kenny Kaye MD) NSTEMI (non-ST elevated myocardial infarction) Cardiac arrest COVID-19 Brain aneurysm Chronic pain Rheumatoid arthritis Kidney stones Kidney disease GERD (gastroesophageal reflux disease) Former smoker Sleep apnea Asthma Migraines Seizures Home Medications ???Medication ???Instructions ???Recorded ???Last Taken ???Type xetgkddu-nsro-looq 8 mg-folic 400 1 tab PO DAILY [...] Lumbar Spine (more content not included)... Normal [facility] Lumbar Spine 2 or 3 Viewson 06-29-2024 Lumbar Spine 2 or 3 Views [facility] Imaging Services [address] [place] [address] Lumbar Spine 2 or 3 Views MR#: [id number] Acct: [id number] Name: ORTIZ MASON Rep #: [id number] : 1970 F 54 From: Joe rodrigues MD PCP: Dr. Amandeep Loredo DO Status: REG ER Study: Lumbar Spine 2 or 3 Views Date of Exam: Exam# [id number] Ordering Dr: [place] [id number] INDICATION: pain EXAMINATION/TECHNIQUE: X-RAY - XR Spine [...] Kenny Kaye MD; Dr. Amandeep Loredo DO Belting And Webbing Inspector: Signed [facility] 36on 06-06-2024 36 LVM for patient to c all and schedule appointment [facility] 36on 06-02-2024 36 Patient is known to Dr. Meri jay to schedule with PA for GNS interrogation if she is comfortable. Otherwise will have to wait for OV with Dr. Nesha Rodriguez. [facility] 36 Patient LVM stating that she had a gastric stimualtor put in a long time ago. Patient states that she is sick all the time (nausea) and does not think stimulator is working. Please advise. No other complaints [facility] Elbow min 3 Viewson 05-11-20 24 Elbow min 3 Views [facility] Imaging Services [address] [facility] [place] [place] [address] Elbow min 3 Views MR#: [id number] Acct: [id number] Name: ORTIZ MASON Rep #: [id number] : 1970 F 54 From: Kunal Rodriguez MD PCP: Dr. Amandeep Loredo DO Status: PRE ER Study: Elbow min 3 Views Date of Exam: 05/11/24 Exam# [id number] Ordering Dr: [place] [id number] INDICATION: pain, truama EXAMINATION/TECHNIQUE: X-RAY - LEFT XR Elbow Min 3 Views COMPARISON: None. FINDINGS: SOFT TISSUES: Unremarkable. BONES/JOINTS: No fracture or dislocation. No significant degenerative changes. No erosive changes. RAD/Elbow min 3 Views IMPRESSION: No fracture or dislocation. Electronically Signed: Kunal Rodriguez DO at 22:43 EDT , CC: Dr. Mattie Jeffrey DO; Dr. Amandeep Loredo DO Belting And Webbing Inspector: Signed Normal [facility] Emergency Department Summary on 05-11-2024 Emergency Department Summary [facility] Medical Records Department [address] [place] [address] Emergency Department Summary 05/11/24 MR#: [id number] Acct: [id number] Name: ORTIZ MASON Rep #: [id number] : 1970 54 From: Mattie Jeffrey DO [...] down a flight of stairs. She was snf [place] when she slipped [...] other complaints or concerns at this time. [facility] Medical History NSTEMI (non-ST elevated myocardial infarction) Cardiac arrest COVID-19 Brain aneurysm Chronic pain Rheumatoid arthritis Kidney stones Kidney disease GERD (gastroesophageal reflux disease) Former smoker Sleep apnea Asthma Migraines Seizures Home Medications ???Medication ???Instructions ???Recorded ???Last Taken ???Type gaewdkvy-vxex-bquv 8 mg-folic 400 1 tab PO DAILY [...] over th (more content not included)... Normal [facility] Hand Min 3 Viewson 4 Hand Min 3 Views [facility] Imaging Services [address] [place], [place] [address] Hand Min 3 Views MR#: [id number] Acct: [id number] Name: ORTIZ MASON Rep #: [id number] : 1970 F 54 From: Kunal Rodriguez MD PCP: Dr. Amandeep Loredo DO Status: PRE ER Study: Hand Min 3 Views Date of Exam: 05/11/24 Exam# [id number] Ordering Dr: [place] [id number] INDICATION: Injury/Pain EXAMINATION/TECHNIQUE: X-RAY - LEFT XR Hand Min 3 Views COMPARISON: 06/28/2022. FINDINGS: SOFT TISSUES: Unremarkable. BONES/JOINTS: No fracture or dislocation. No significant degenerative changes. No erosive changes. RAD/Hand Min 3 Views IMPRESSION: No fracture or dislocation. Electronically Signed: Kunal Rodriguez DO at 22:48 EDT , CC: Dr. Mattie Jeffrey DO; Dr. Amandeep Loredo DO Belting And Webbing Inspector: Signed Normal [facility] Lumbar Spine 2 or 3 Viewson 05-11-2024 Lumbar Spine 2 or 3 Views [facility] Imaging Services [address] [place], [place] [address] Lumbar Spine 2 or 3 Views MR#: [id number] Acct: [id number] Name: ORTIZ MASON Rep #: [id number] : 1970 F 54 From: Kunal Rodriguez MD PCP: Dr. Amandeep Loredo DO Status: PRE ER Study: Lumbar Spine 2 or 3 Views Date of Exam: Exam# [id number] Ordering Dr: [place] [id number] INDICATION: Injury/Pain EXAMINATION/TECHNIQUE: X-RAY - XR Spine [...] Mattie Jeffrey DO; Dr. Amandeep Loredo DO Belting And Webbing Inspector: Signed Normal [facility] Pelvis 1 or 2 Viewson 2023 Pelvis 1 or 2 Views [facility] Imaging Services [address] [place] [address] Pelvis 1 or 2 Views MR#: [id number] Acct: [id number] Name: ORTIZ MASON Rep #: [id number] : 1970 F 54 From: Kunal Rodriguez MD PCP: Dr. Amandeep Loredo DO Status: PRE ER Study: Pelvis 1 or 2 Views Date of Exam: 05/11/24 Exam# [id number] Ordering Dr: [place] [id number] INDICATION: Injury/Pain EXAMINATION/TECHNIQUE: X-RAY - XR Pelvis [...] Mattie Jeffrey DO; Dr. Amandeep Loredo DO Belting And Webbing Inspector: Signed Normal [facility] Wrist min 3 Viewson 05-11-20 24 Wrist min 3 Views [facility] Imaging Services [address] [place], [place] [address] Wrist min 3 Views MR#: [id number] Acct: [id number] Name: ORTIZ MASON Rep #: [id number] : 1970 F 54 From: Kunal Rodriguez MD PCP: Dr. Amandeep Loredo DO Status: PRE ER Study: Wrist min 3 Views Date of Exam: 05/11/24 Exam# [id number] Ordering Dr: [place] [id number] INDICATION: Injury/Pain EXAMINATION/TECHNIQUE: X-RAY - LEFT XR Wrist Min 3 Views COMPARISON: None. FINDINGS: SOFT TISSUES: Unremarkable. BONES/JOINTS: No fracture or dislocation. No significant degenerative changes. No erosive changes. RAD/Wrist min 3 Views IMPRESSION: No fracture or dislocation. Electronically Signed: Kunal Rodriguez DO at 22:49 EDT , CC: Dr. Mattie Jeffrey DO; Dr. Amandeep Loredo DO Belting And Webbing Inspector: Signed Normal [facility] Telephone Encounteron 2023 [employer] Authentication Interface Message Text Situation: Patient calling [...] been seen at since 2015. Assessment: See financial institution president. Recommendation: Triage recommends pt be seen within [...] N/A Protocols used: Rash or Redness - Ztinqozmj-C-GC Normal [facility] Absolute lymphocyte countOrd ered By: Franki Flynn on 12-01-2023 Lymphocytes Auto (Unsp spec) [#/Vol] 2.28 10*3/uL 0.83-4.51 [facility] Automated lymphocyte count a s percentage of total leukocytesOrdered By: Franki Flynn on 12-01-2023 Lymphocytes/100 WBC Auto (Unsp spec) 15.9 % 19-41 [facility] Basophil percentageOrdered B y: Franki Flynn on 12-01-2023 Basophils/100 WBC (Bld) 0.4 % 0-1 [facility] Bilirubin [Mass/Vol] 0.60 mg/dL 0.20-1.00 [facility] Comment on above: For patients on eltr ombopag therapy, use of Dimension [place] TBIL is not recommended. Chloride [Moles/Vol] 102 mmol/L 98-107 [facility] Eosinophils/100 WBC (Bld) 0.1 % 0-5 [facility] Glucose [Mass/Vol] 117 mg/dL 74-106 [facility] Comment on above: Fasting Glucose resu lt from 100 to 125 mg/dL suggests IMPAIRED HOMEOSTASIS per A.D.A. criteria. Hemoglobin (Bld) [Mass/Vol] 15.7 g/dL 12.0-15.0 [facility] Monocytes/100 WBC (Bld) 6.4 % 0-10 [facility] Neutrophils (Bld) [#/Vol] 11.0 10*3/uL 2.0-7.7 [facility] Neutrophils/100 WBC (Bld) 76.8 % 47-70 [facility] Potassium [Moles/Vol] 3.0 mmol/L 3.5-5.1 [facility] Protein [Mass/Vol] 7.7 g/dL 6.4-8.2 [facility] Sodium [Moles/Vol] 141 mmol/L 136-145 [facility] WBC (Bld) [#/Vol] 14.3 10*3/uL 4.4-11.0 [facility] Determination of erythrocyte mean corpuscular volume (MCV)Ordered By: Franki Flynn on 12-01-2023 MCV (RBC) [Entitic vol] 93.7 fL 81-99 [facility] Direct bilirubinOrdered By: Franki Flynn on 12-01-2023 Bilirubin.direct [Mass/Vol] 0.13 mg/dL 0.00-0.30 [facility] Erythrocyte distribution wid th ratioOrdered By: Franki Flynn on 12-01-2023 Erythrocyte distribution width (RBC) [Ratio] 12.3 % 11.6-14.6 [facility] Erythrocyte distribution wid th standard deviationOrdered By: Franki Flynn on 12-01-2023 Erythrocyte distribution width (RBC) [Entitic vol] 42.5 fL 35.1-43.9 [facility] Hematocrit Auto (Bld) [Volum e fraction]Ordered By: Franki Flynn on 12-01-2023 Hematocrit (Bld) [Volume fraction] 47.5 % 37-47 [facility] Immature granulocytes/100 WB C Auto (Bld)Ordered By: Franki Flynn on 12-01-2023 Immature granulocytes/100 WBC (Bld) 0.400 % 0.0-0.9 [facility] Comment on above: IG% - Immature Granu locytes (promyelocytes, myelocytes and metamyelocytes) > 1% indicates that a LEFT SHIFT is Present. Laboratory - Chemistry and C hemistry - challengeOrdered By: Franki Flynn on 12-01-2023 ALP [Catalytic activity/Vol] 152 U/L 45-117 [facility] ALT [Catalytic activity/Vol] 17 U/L 13-56 [facility] CO2 [Moles/Vol] 30.0 mmol/L 21.0-32.0 [facility] Globulin (S) [Mass/Vol] 3.7 g/dL 2.2-4.2 [facility] Lipase [Catalytic activity/Vol] 20 U/L 13-75 [facility] Comment on above: Please note:LIPASE r evised reference range effective 22. New Lipase methodology. Expected to produce lower values than the previous assay method. NEW Reference Range: 13 - 75 U/L Urea nitrogen/Creatinine [Mass ratio] 16.1 mg/mg 10-20 [facility] Laboratory - Hematology and Cell countsOrdered By: Franki Flynn on 12-01-2023 MCH (RBC) [Entitic mass] 31.0 pg 27.0-32.0 [facility] MCHC (RBC) [Mass/Vol] 33.1 g/dL 32-36 [facility] Nucleated RBC/100 WBC (Bld) [Ratio] 0 % 0-5 [facility] Platelet mean volume (Bld) [Entitic vol] 9.6 fL 6.2-12.0 [facility] Platelets (Bld) [#/Vol] 345 10*3/uL 150-450 [facility] No Panel InformationOrdered By: Franki Flynn on 12-01-2023 Estimated Creatinine Clearance Calc 96.45 ml/min [facility] Estimated GFR (MDRD) Amer 104 mL/min >60 [facility] Comment on above: GFR Calc Estimated GFR (MDRD) Non-Af Amer 86 mL/min >60 [facility] Comment on above: Non- GFR Calc RBC Auto (Bld) [#/Vol]Ordere d By: Franki Flynn on 12-01-2023 RBC (Bld) [#/Vol] 5.07 10*6/uL 4.2-5.4 [facility] Serum or plasma calcium tania urement (mass/volume)Ordered By: Franki Flynn on 12-01-2023 Calcium [Mass/Vol] 9.7 mg/dL 8.5-10.1 [facility] Serum or plasma creatinine m easurement (mass/volume)Ordered By: Franki Flynn on 12-01-2023 Creatinine [Mass/Vol] 0.74 mg/dL 0.55-1.02 [facility] Comment on above: The validity of the calculated GFR & GFRAA in patients over 70 years has not been determined. Clinical correlation is essential. Serum or plasma urea nitroge n measurement (mass/volume)Ordered By: Franki Flynn on 12-01-2023 Urea nitrogen [Mass/Vol] 12 mg/dL 7-18 [facility] Thin prep Papanicolaou smear with manual screeningOrdered By: Franki Flynn on 12-01-2023 Thin prep Papanicolaou smear with manual screening 4.0 g/dL 3.2-5.0 [facility] Thin prep Papanicolaou smear with manual screening 16 U/L 15-37 [facility] Thin prep Papanicolaou smear with manual screening 9 5-15 [facility] Absolute lymphocyte countOrd ered By: Narciso Baron on 10-07-2023 Lymphocytes Auto (Unsp spec) [#/Vol] 2.85 10*3/uL 0.83-4.51 [facility] Automated lymphocyte count a s percentage of total leukocytesOrdered By: Narciso Baron on 10-07-2023 Lymphocytes/100 WBC Auto (Unsp spec) 37.3 % 19-41 [facility] Basophil percentageOrdered B y: Narciso Baron on 10-07-2023 Basophils/100 WBC (Bld) 0.9 % 0-1 [facility] Bilirubin [Mass/Vol] 0.10 mg/dL 0.20-1.00 [facility] Comment on above: For patients on eltr ombopag therapy, use of Dimension [place] TBIL is not recommended. Chloride [Moles/Vol] 111 mmol/L 98-107 [facility] Eosinophils/100 WBC (Bld) 1.3 % 0-5 [facility] Glucose [Mass/Vol] 114 mg/dL 74-106 [facility] Comment on above: Fasting Glucose resu lt from 100 to 125 mg/dL suggests IMPAIRED HOMEOSTASIS per A.D.A. criteria. Hemoglobin (Bld) [Mass/Vol] 15.7 g/dL 12.0-15.0 [facility] Monocytes/100 WBC (Bld) 6.3 % 0-10 [facility] Neutrophils (Bld) [#/Vol] 4.1 10*3/uL 2.0-7.7 [facility] Neutrophils/100 WBC (Bld) 53.8 % 47-70 [facility] Potassium [Moles/Vol] 3.8 mmol/L 3.5-5.1 [facility] Protein [Mass/Vol] 7.1 g/dL 6.4-8.2 [facility] Sodium [Moles/Vol] 142 mmol/L 136-145 [facility] WBC (Bld) [#/Vol] 7.6 10*3/uL 4.4-11.0 [facility] Blood manual differential co mment interpretation (narrative result)Ordered By: Narciso Baron on 10-07-2023 Manual differential comment Albert (Bld) [Interp] SCANNED [facility] Determination of erythrocyte mean corpuscular volume (MCV)Ordered By: Narciso Baron on 10-07-2023 MCV (RBC) [Entitic vol] 95.2 fL 81-99 [facility] Erythrocyte distribution wid th ratioOrdered By: Narciso Baron on 10-07-2023 Erythrocyte distribution width (RBC) [Ratio] 12.9 % 11.6-14.6 [facility] Erythrocyte distribution wid th standard deviationOrdered By: Narciso Baron on 10-07-2023 Erythrocyte distribution width (RBC) [Entitic vol] 45.2 fL 35.1-43.9 [facility] Hematocrit Auto (Bld) [Volum e fraction]Ordered By: Narciso Baron on 10-07-2023 Hematocrit (Bld) [Volume fraction] 48.0 % 37-47 [facility] Immature granulocytes/100 WB C Auto (Bld)Ordered By: Narciso Baron on 10-07-2023 Immature granulocytes/100 WBC (Bld) 0.400 % 0.0-0.9 [facility] Comment on above: IG% - Immature Granu locytes (promyelocytes, myelocytes and metamyelocytes) > 1% indicates that a LEFT SHIFT is Present. Laboratory - Chemistry and C hemistry - challengeOrdered By: Narciso Baron on 10-07-2023 Albumin/Globulin [Mass ratio] 1.2 {ratio} 0.9-2.4 [facility] ALP [Catalytic activity/Vol] 183 U/L 45-117 [facility] ALT [Catalytic activity/Vol] 16 U/L 13-56 [facility] CO2 [Moles/Vol] 25.0 mmol/L 21.0-32.0 [facility] Globulin (S) [Mass/Vol] 3.3 g/dL 2.2-4.2 [facility] Urea nitrogen/Creatinine [Mass ratio] 10.5 mg/mg 10-20 [facility] Laboratory - Hematology and Cell countsOrdered By: Narciso Baron on 10-07-2023 MCH (RBC) [Entitic mass] 31.2 pg 27.0-32.0 [facility] MCHC (RBC) [Mass/Vol] 32.7 g/dL 32-36 [facility] Nucleated RBC/100 WBC (Bld) [Ratio] 0 % 0-5 [facility] Platelet mean volume (Bld) [Entitic vol] 10.0 fL 6.2-12.0 [facility] Platelets (Bld) [#/Vol] 301 10*3/uL 150-450 [facility] No Panel InformationOrdered By: Narciso Baron on 10-07-2023 Estimated Creatinine Clearance Calc 106.59 ml/min [facility] Estimated GFR (MDRD) Amer 118 mL/min >60 [facility] Comment on above: GFR Calc Estimated GFR (MDRD) Non-Af Amer 98 mL/min >60 [facility] Comment on above: Non- GFR Calc RBC Auto (Bld) [#/Vol]Ordere d By: Narciso Baron on 10-07-2023 RBC (Bld) [#/Vol] 5.04 10*6/uL 4.2-5.4 [facility] Serum or plasma calcium tania urement (mass/volume)Ordered By: Narciso Baron on 10-07-2023 Calcium [Mass/Vol] 9.0 mg/dL 8.5-10.1 [facility] Serum or plasma creatinine m easurement (mass/volume)Ordered By: Narciso Baron on 10-07-2023 Creatinine [Mass/Vol] 0.67 mg/dL 0.55-1.02 [facility] Comment on above: The validity of the calculated GFR & GFRAA in patients over 70 years has not been determined. Clinical correlation is essential. Serum or plasma urea nitroge n measurement (mass/volume)Ordered By: Narciso Baron on 10-07-2023 Urea nitrogen [Mass/Vol] 7 mg/dL 7-18 [facility] Thin prep Papanicolaou smear with manual screeningOrdered By: Narciso Baron on 10-07-2023 Thin prep Papanicolaou smear with manual screening 3.8 g/dL 3.2-5.0 [facility] Thin prep Papanicolaou smear with manual screening 15 U/L 15-37 [facility] Thin prep Papanicolaou smear with manual screening 6 5-15 [facility] No Panel Informationon 07-06 Bismark Mott DO 07/06/2023 4:20 PM [facility] Neurology Lab EMG/NCS report: Patient: Ortiz [...] for this study were taken from the [facility] reference values. This dictation was done by using the dragon medical dictation system. It has been proofread but still may contain unrecognized voice recognition errors. [facility] CT HEAD OR BRAIN W/O RODRIGOBRENDAN Angelo [...] By: Alejandro Mercer Electronically signed By Alejandro Mecrer Dictated Date: 03/06/2023 12:12:16 AM Prelim Date: 03/06/2023 12:14:25 AM Sign Date: 03/06/2023 12:14:25 AM Ordering Provider: BELINDA COVARRUBIAS [facility] (PR) CT SPINE CERVICAL W/O KING Prado 03-06-2023 [...] Sign Date: 03/06/2023 12:33:41 AM Ordering Provider: [facility] (PR) XR CLAVICLE RIGHTon 03-06-20 XR CLAVICLE RIGHT [...] Sign Date: 03/06/2023 12:34:46 AM Ordering Provider: [facility] (PR) XR SHOULDER MINIMUM 2 VIEWS RIGHTon 03-06-2023 [...] 03/06/2023 12:35:36 AM Ordering Provider: BELINDA COVARRUBIAS [facility] (PR) CBC W Auto Differential pane l (Bld)Ordered By: Rudy Franco on 11-27-2022 Basophils (Bld) [#/Vol] 0.1 10*3/uL 0.0 - 0.2 10*3/uL [facility] Basophils/100 WBC (Bld) 1.2 % 0.0 - 2.0 % [facility] Eosinophils (Bld) [#/Vol] 0.2 10*3/uL 0.0 - 0.5 10*3/uL [facility] Eosinophils/100 WBC (Bld) 2.4 % 1.0 - 6.0 % [facility] Erythrocyte distribution width (RBC) [Ratio] 13.7 % 11.5 - 14.5 % [facility] Hematocrit (Bld) [Volume fraction] 36.4 % 35.0 - 47.0 % [facility] Hemoglobin (Bld) [Mass/Vol] 12.4 g/dL 11.7 - 16.0 g/dL [facility] Interpretation and review of laboratory results Abnormal [facility] Lymphocytes (Bld) [#/Vol] 3.0 10*3/uL 1.0 - 4.3 10*3/uL [facility] Lymphocytes/100 WBC (Bld) 42.5 % High 20.0 - 40.0 % [facility] MCH (RBC) [Entitic mass] 32.0 pg 26.0 - 34.[address] [facility] MCHC (RBC) [Mass/Vol] 34.0 % 32.0 - 36.0 % [facility] MCV (RBC) [Entitic vol] 94.0 fL 80.0 - 98.0 fL [facility] Monocytes (Bld) [#/Vol] 0.6 10*3/uL 0.0 - 0.8 10*3/uL [facility] Monocytes/100 WBC (Bld) 8.2 % 2.0 - 10.0 % [facility] Neutrophils (Bld) [#/Vol] 3.2 10*3/uL 1.8 - 7.0 10*3/uL [facility] Neutrophils/100 WBC (Bld) 45.7 % 40.0 - 80.0 % [facility] Nucleated RBC/100 WBC (Bld) [Ratio] 0.2 % [facility] Platelet mean volume (Bld) [Entitic vol] 7.4 fL 7.4 - 12.4 fL [facility] Platelets (Bld) [#/Vol] 287 10*3/uL 140 - 440 10*3/uL [facility] RBC (Bld) [#/Vol] 3.87 10*6/uL 3.8 - 5.20 10*6/uL [facility] WBC (Bld) [#/Vol] 7.0 10*3/uL 3.6 - 10.7 10*3/uL [facility] Comprehensive metabolic 1998 panelon 11-27-2022 Albumin [Mass/Vol] 3.5 g/dL 3.5 - 5.0 g/dL [facility] ALP [Catalytic activity/Vol] 124 U/L 38 - 126 U/L [facility] ALT [Catalytic activity/Vol] 17 U/L 0 - 34 U/L [facility] Anion gap [Moles/Vol] 8 mmol/L 3 - 13 mmol/L [facility] AST [Catalytic activity/Vol] 37 U/L 15 - 46 U/L [facility] Bilirubin [Mass/Vol] 0.6 mg/dL 0.2 - 1 .3 mg/dL [facility] Calcium [Mass/Vol] 8.4 mg/dL 8.4 - 10. 4 mg/dL [facility] Chloride [Moles/Vol] 109 mmol/L High 98 - 10 7 mmol/L [facility] CO2 [Moles/Vol] 23 mmol/L 22 - 30 mmol/L [facility] Creatinine [Mass/Vol] 0.61 mg/dL 0.52 - 1.04 mg/dL [facility] GFR/1.73 sq M.predicted MDRD (S/P/Bld) [Vol rate/Area] - PINF [facility] Comment on above: Calculation based on the Chronic Kidney Disease Epidemiology Collaboration (CKD-EPI) equation refit without adjustment for race Glucose [Mass/Vol] 99 mg/dL 70 - 100 mg/dL [facility] Interpretation and review of laboratory results Abnormal [facility] Potassium [Moles/Vol] 3.8 mmol/L 3.5 - 5.1 mmol/L [facility] Protein [Mass/Vol] 6.1 g/dL Low 6.3 - 8.2 g/dL [facility] Sodium [Moles/Vol] 140 mmol/L 135 - 145 mmol/L [facility] Urea nitrogen [Mass/Vol] 16 mg/dL 7 - 17 mg/dL [facility] Slightly Hemolyzed. Interpret K+, ALKP, AST with caution. [facility] CBC W Auto Differential pane l (Bld)Ordered By: Lesly Singh on 11-26-2022 Basophils (Bld) [#/Vol] 0.0 10*3/uL 0.0 - 0.2 10*3/uL [facility] Basophils/100 WBC (Bld) 0.7 % 0.0 - 2.0 % [facility] Eosinophils (Bld) [#/Vol] 0.0 10*3/uL 0.0 - 0.5 10*3/uL [facility] Eosinophils/100 WBC (Bld) 0.3 % Low 1.0 - 6.0 % [facility] Erythrocyte distribution width (RBC) [Ratio] 13.5 % 11.5 - 14.5 % [facility] Hematocrit (Bld) [Volume fraction] 39.4 % 35.0 - 47.0 % [facility] Hemoglobin (Bld) [Mass/Vol] 12.7 g/dL 11.7 - 16.0 g/dL [facility] Interpretation and review of laboratory results Abnormal [facility] Lymphocytes (Bld) [#/Vol] 1.9 10*3/uL 1.0 - 4.3 10*3/uL [facility] Lymphocytes/100 WBC (Bld) 25.7 % 20.0 - 40.0 % [facility] MCH (RBC) [Entitic mass] 30.4 pg 26.0 - 34.0 pg [facility] MCHC (RBC) [Mass/Vol] 32.3 % 32.0 - 36.0 % [facility] MCV (RBC) [Entitic vol] 94.4 fL 80.0 - 98.0 fL [facility] Monocytes (Bld) [#/Vol] 0.7 10*3/uL 0.0 - 0.8 10*3/uL [facility] Monocytes/100 WBC (Bld) 9.0 % 2.0 - 10.0 % [facility] Neutrophils (Bld) [#/Vol] 4.8 10*3/uL 1.8 - 7.0 10*3/uL [facility] Neutrophils/100 WBC (Bld) 64.3 % 40.0 - 80.0 % [facility] Nucleated RBC/100 WBC (Bld) [Ratio] 0.0 % [facility] Platelet mean volume (Bld) [Entitic vol] 7.1 fL Low 7.4 - 12.4 fL [facility] Platelets (Bld) [#/Vol] 322 10*3/uL 140 - 440 10*3/uL [facility] RBC (Bld) [#/Vol] 4.18 10*6/uL 3.8 - 5.20 10*6/uL [facility] WBC (Bld) [#/Vol] 7.4 10*3/uL 3.6 - 10.7 10*3/uL [facility] Comprehensive metabolic 1998 panelon 11-26-2022 Albumin [Mass/Vol] 3.5 g/dL 3.5 - 5.0 g/dL [facility] ALP [Catalytic activity/Vol] 132 U/L High 38 - 126 U/L [facility] ALT [Catalytic activity/Vol] 14 U/L 0 - 34 U/L [facility] Anion gap [Moles/Vol] 6 mmol/L 3 - 13 mmol/L [facility] AST [Catalytic activity/Vol] 30 U/L 15 - 46 U/L [facility] Bilirubin [Mass/Vol] 0.5 mg/dL 0.2 - 1 .3 mg/dL [facility] Calcium [Mass/Vol] 8.6 mg/dL 8.4 - 10. 4 mg/dL [facility] Chloride [Moles/Vol] 113 mmol/L High 98 - 10 7 mmol/L [facility] CO2 [Moles/Vol] 19 mmol/L Low 22 - 30 mmol/L [facility] Creatinine [Mass/Vol] 0.51 mg/dL Low 0.52 - 1.04 mg/dL [facility] GFR/1.73 sq M.predicted MDRD (S/P/Bld) [Vol rate/Area] - PINF [facility] Comment on above: Calculation based on the Chronic Kidney Disease Epidemiology Collaboration (CKD-EPI) equation refit without adjustment for race Glucose [Mass/Vol] 89 mg/dL 70 - 100 mg/dL [facility] Interpretation and review of laboratory results Abnormal [facility] Potassium [Moles/Vol] 4.0 mmol/L 3.5 - 5.1 mmol/L [facility] Protein [Mass/Vol] 6.2 g/dL Low 6.3 - 8.2 g/dL [facility] Sodium [Moles/Vol] 138 mmol/L 135 - 145 mmol/L [facility] Urea nitrogen [Mass/Vol] 14 mg/dL 7 - 17 mg/dL [facility] HIV 1+2 Ab+HIV1 p24 Ag IA Ql on 11-26-2022 Interpretation and review of laboratory results Normal [facility] Laboratory - Drug toxicology on 11-26-2022 levETIRAcetam [Mass/Vol] ug/mL Low 10 - 40 ug/mL [facility] Comment on above: INTERPRETIVE INFORMA TION: Keppra (Levetiracetam) Therapeutic Range: 10-40 ug/mL Toxic: Not well Established Pharmacokinetics of levetiracetam are affected by renal function. Adverse effects may include somnolence, weakness, headache and vomiting. This levetiracetam (Keppra) immunoassay uses the [employer] reagents, which has known cross-reactivity with the drug brivaracetam (Briviact) and may report inaccurate results. Patients transitioning from levetiracetam to brivaracetam or those who are using both medications should not monitor drug concentrations with the [facility] assay. These patients should be monitored using a validated chromatographic methodology that distinguishes between drugs to determine drug concentrations. Performed By: [facility] [address] [place] [id number] Milieu Therapist: Clem Gregg MD, PhD Laboratory - Drug toxicology Ordered By: Dawit Maldonado on 11-26-2022 Amphetamines Ql (U) Negative Negative [facility] Benzodiazepines Ql (U) Negative Negative [facility] Cocaine Ql (U) Positive Negative [facility] Ethanol [Mass/Vol] Negative Negative [facility] Methadone Ql (U) Negative Negative [facility] Opiates Ql (U) Positive Negative [facility] Laboratory - Microbiology an d Antimicrobial susceptibilityon 11-26-2022 HIV 1+2 Ab+HIV1 p24 Ag IA Ql Non-Reactive Nonreactive [facility] Comment on above: The specimen was non -reactive for HIV-1 and HIV-2 antibodies and p24 antigen using an FDA-cleared 4th generation HIV test. Based on this non-reactive screen result, further reflexive testing was not indicated and was, therefore, not performed. Laboratory - Microbiology an d Antimicrobial susceptibilityOrdered By: Ricky Kincaid on 11-26-2022 Reagin Ab RPR Ql (S) Non-Reactive Nonreactive S [facility] No Panel Informationon 11-26 Interpretation and review of laboratory results Abnormal [facility] No evidence of deep vein thrombosis in [...] filling and normal phasic and spontaneous flow. Lending Consultant Details A lira scale, color Doppler imaging [...] Dawit Maldonado on 11-26-2022 BARBITURATES Negative Negative [facility] BUPRENORPHINE SCREEN Negative Negative [facility] FENTANYL Positive Negative [facility] OXYCODONE/OXYMORPHONE Positive Negative [facility] PCP Negative Negative [facility] THC Negative Negative [facility] The expected value f or the drugs [...] treatment only. Analysis performed using non-forensic procedures. [facility] Reagin Ab RPR Ql (S)Ordered By: Ricky Kincaid on 11-26-2022 Interpretation and review of laboratory results Normal [facility] US Heart TransthoracicOrdere d By: Gem Shearer on 11-26-2022 Ao Root Index 1.57 cm/m2 [facility] Work Phone: Aortic Root 3.[address] [facility] Work Phone: [phone] Ascending Aorta 2.5 cm [facility] Work Phone: [phone] Ascending Aorta Index 1.31 cm/m2 [facility] Work Phone: [phone] E/E' Lateral 5.82 [facility] Work Phone: [phone] E/E' Ratio (Averaged) 5.82 [facility] Work Phone: [phone] E/E' Septal 5.82 [facility] Work Phone: [phone] EF BP 58 % 55 - 100 % [facility] Work Phone: [phone] Fractional Shortening 2D 21 % 28 - 44 % [facility] [employer] Phone: Interpretation and review of laboratory results Abnormal [facility] Work Phone: IVSd 1.0 cm Abnormal 0.6 - 0.[address] [facility] Work Phone: LA Diameter 3.[address] [facility] Work Phone: LA Size Index 1.68 cm/m2 [facility] Work Phone: LA Volume 2C 59 mL Abnormal 22 - 52 mL [facility] Work Phone: LA Volume 4C 31 mL 22 - 52 mL [facility] Work Phone: LA Volume A/L 54 mL [facility] Work Phone: LA Volume BP 46 mL 22 - 52 mL [facility] Work Phone: LA Volume Index 2C 31 mL/m2 16 - 34 mL/m2 [facility] Work Phone: LA Volume Index 4C 16 mL/m2 16 - 34 mL/m2 [facility] Work Phone: LA Volume Index A/L 28 mL/m2 16 - 34 mL/m2 [facility] Work Phone: LA Volume Index BP 24 ml/m2 16 - 34 ml/m2 [facility] Work Phone: LA/AO Root Ratio 1.07 [facility] Work Phone: LV E' Lateral Velocity 11 cm/s [facility] Work Phone: LV E' Septal Velocity 11 cm/s [facility] Work Phone: LV EDV A2C [address] [facility] Work Phone: LV EDV A4C [address] [facility] Work Phone: LV EDV BP 108 mL Abnormal 56 - [address] [facility] Work Phone: LV EDV Index A2C 61 mL/m2 [facility] Work Phone: LV EDV Index A4C 45 mL/m2 [facility] Work Phone: LV EDV Index BP 57 mL/m2 [facility] Work Phone: LV Ejection Fraction A2C 62 % [facility] Work Phone: LV Ejection Fraction A4C 53 % [facility] Work Phone: LV ESV A2C 45 mL [facility] Work Phone: [phone] LV ESV A4C 40 mL [facility] Work Phone: [phone] LV ESV BP 45 mL 19 - 49 mL [facility] Work Phone: [phone] LV ESV Index A2C 24 mL/m2 [facility] Work Phone: [phone] LV ESV Index A4C 21 mL/m2 [facility] Work Phone: [phone] LV ESV Index BP 24 mL/m2 [facility] Work Phone: [phone] LV Mass 2D 158.8 g 67 - 162 g [facility] Work Phone: [phone] LV Mass 2D Index 83.2 g/m2 43 - 95 g/m2 [facility] Work Phone: [phone] LV RWT Ratio 0.38 [facility] Work Phone: [phone] LVIDd 4.8 cm 3.9 - 5.3 cm [facility] Work Phone: [phone] LVIDd Index 2.51 cm/m2 [facility] Work Phone: [phone] [facility] Work Phone: [phone] LVIDs Index 1.99 cm/m2 [facility] Work Phone: [phone] LVOT Area 4.[address] [facility] Work Phone: [phone] LVOT Cardiac Output 3.7 liter/minute [facility] Work Phone: [phone] LVOT Diameter 2.4 cm [facility] Work Phone: [phone] LVOT Mean Gradient [address] [facility] Work Phone: [phone] LVOT Peak Gradient [address] [facility] Work Phone: [phone] LVOT Peak Velocity 0.6 m/s [facility] Work Phone: [phone] LVOT Stroke Volume Index 31.5 mL/m2 [facility] Work Phone: [phone] LVOT SV 60.[address] [facility] Work Phone: [phone] LVOT VTI 13.[address] [facility] Work Phone: [phone] LVPWd 0.9 cm 0.6 - 0.[address] [facility] Work Phone: [phone] MV A Velocity 0.43 m/s [facility] [employer] Work Phone: [phone] MV E Velocity 0.64 m/s [facility] [employer] Work Phone: [phone] E Wave Deceleration Time 129.[address] [facility] Work Phone: [phone] MV E/A 1.49 [facility] Work Phone: [phone] RV Basal Dimension 2.[address] [facility] Work Phone: [phone] RV Longitudinal Dimension 5.[address] [facility] Work Phone: [phone] Mid Dimension 2.3 cm [facility] Work Phone: [phone] TAPSE 1.4 cm Abnormal 1.[address] [facility] Work Phone: [phone] [facility] Work Phone: [phone] Heart Transthoracicon Left Ventricle: Left ventricle [...] [Moles/Vol] 8 mmol/L 3 - 13 mmol/L [facility] Calcium [Mass/Vol] 9.3 mg/dL 8.4 - 10. 4 mg/dL [facility] Chloride [Moles/Vol] 107 mmol/L 98 - 10 7 mmol/L [facility] CO2 [Moles/Vol] 26 mmol/L 22 - 30 mmol/L [facility] Creatinine [Mass/Vol] 0.61 mg/dL 0.52 - 1.04 mg/dL [facility] GFR/1.73 sq M.predicted MDRD (S/P/Bld) [Vol rate/Area] - PINF [facility] Comment on above: Calculation based on the Chronic Kidney Disease Epidemiology Collaboration (CKD-EPI) equation refit without adjustment for race Glucose [Mass/Vol] 108 mg/dL High 70 - 100 mg/dL [facility] Interpretation and review of laboratory results Abnormal [facility] Potassium [Moles/Vol] 3.7 mmol/L 3.5 - 5.1 mmol/L [facility] Sodium [Moles/Vol] 141 mmol/L 135 - 145 mmol/L [facility] Urea nitrogen [Mass/Vol] 14 mg/dL 7 - 17 mg/dL [facility] CBC W Auto Differential pane l (Bld)Ordered By: Janene Rubio on 11-25-2022 Basophils (Bld) [#/Vol] 0.0 10*3/uL 0.0 - 0.2 10*3/uL [facility] Basophils/100 WBC (Bld) 0.7 % 0.0 - 2.0 % [facility] Eosinophils (Bld) [#/Vol] 0.1 10*3/uL 0.0 - 0.5 10*3/uL [facility] Eosinophils/100 WBC (Bld) 1.6 % 1.0 - 6.0 % [facility] Erythrocyte distribution width (RBC) [Ratio] 13.8 % 11.5 - 14.5 % [facility] Hematocrit (Bld) [Volume fraction] 47.5 % High 35.0 - 47.0 % [facility] Hemoglobin (Bld) [Mass/Vol] 15.7 g/dL 11.7 - 16.0 g/dL [facility] Interpretation and review of laboratory results Abnormal [facility] Lymphocytes (Bld) [#/Vol] 1.1 10*3/uL 1.0 - 4.3 10*3/uL [facility] Lymphocytes/100 WBC (Bld) 16.8 % Low 20.0 - 40.0 % [facility] MCH (RBC) [Entitic mass] 31.0 pg 26.0 - 34.0 pg [facility] MCHC (RBC) [Mass/Vol] 33.1 % 32.0 - 36.0 % [facility] MCV (RBC) [Entitic vol] 93.8 fL 80.0 - 98.0 fL [facility] Monocytes (Bld) [#/Vol] 0.5 10*3/uL 0.0 - 0.8 10*3/uL [facility] Monocytes/100 WBC (Bld) 7.8 % 2.0 - 10.0 % [facility] Neutrophils (Bld) [#/Vol] 4.7 10*3/uL 1.8 - 7.0 10*3/uL [facility] Neutrophils/100 WBC (Bld) 73.1 % 40.0 - 80.0 % [facility] Nucleated RBC/100 WBC (Bld) [Ratio] 0.2 % [facility] Platelet mean volume (Bld) [Entitic vol] 7.4 fL 7.4 - 12.4 fL [facility] Platelets (Bld) [#/Vol] 328 10*3/uL 140 - 440 10*3/uL [facility] RBC (Bld) [#/Vol] 5.06 10*6/uL 3.8 - 5.20 10*6/uL [facility] WBC (Bld) [#/Vol] 6.5 10*3/uL 3.6 - 10.7 10*3/uL [facility] CT Abdomen and Pelvis W cont [...] and L3-L5 laminectomies. No acute osseous findings. [facility] Agustina Zarate M D - 11/25/2022 [...] Electronically Signed Date/Time: 11/25/2022 6:06 PM EDT [facility] CT Head WO contraston 2022 No acute intracranial abnormalities. Report Dictated on Electronically Signed By: Agustina Zarate Electronically Signed Date/Time: 11/25/2022 5:52 PM EDT [facility] 1970 [id number] Exam Date/Time: 11/25/2022 17:49 Procedure: CT HEAD [...] in the sinuses. No acute osseous abnormalities. [facility] Agustina Zarate M D - 11/25/2022 Patient [...] Electronically Signed Date/Time: 11/25/2022 5:52 PM EDT [employer] CT Head WO contrastOrdered B y: Agustina Zarate on 11-25-2022 [employer] Work Phone: CTA Chest vessels WO and [...] and L3-L5 laminectomies. No acute osseous findings. [facility] Agustina Zarate M D - 11/25/2022 Patient Name: [facility]TIZ MAS[facility] 1970 [id number] Exam Date/Time: 11/25/2022 17:49 Procedure: CT CHEST [...] Electronically Signed Date/Time: 11/25/2022 6:[address] [facility] Fibrin D-dimer FEU (PPP) [Ma ss/Vol]on 11-25-2022 Interpretation and review of laboratory results Abnormal [facility] D-Dimer values of <0.50 mg/L FEU can be used in combination with a pre-test probability model (e.g. Well's) to exclude pulmonary embolism (PE) disease, as well as an aid in the diagnosis of deep vein thrombosis (DVT). [facility] Hepatic function 2000 panelo n 11-25-2022 Albumin [Mass/Vol] 4.4 g/dL 3.5 - 5.0 g/dL [facility] ALP [Catalytic activity/Vol] 197 U/L High 38 - 126 U/L [facility] ALT [Catalytic activity/Vol] 19 U/L 0 - 34 U/L [facility] AST [Catalytic activity/Vol] 38 U/L 15 - 46 U/L [facility] Bilirubin [Mass/Vol] 0.6 mg/dL 0.2 - 1 .3 mg/dL [facility] Bilirubin.conjugated [Mass/Vol] 0.0 mg/dL 0.0 - 0.3 mg/dL [facility] Interpretation and review of laboratory results Abnormal [facility] Protein [Mass/Vol] 7.7 g/dL 6.3 - 8.2 g/dL [facility] Laboratory - Chemistry and C hemistry - challengeon 11-25-2022 Cobalamin (Vitamin B12) [Mass/Vol] 642 pg/mL 239 - 931 pg/mL [facility] Folate [Mass/Vol] ng/mL 2.9 - PINF ng/mL [facility] TSH Qn 0.870 m[IU]/L [facility] h Prolactin [Mass/Vol] 6.7 ng/mL 2.8 - 2 7.0 ng/mL [facility] HCG.beta subunit Qn Females < 5 mIU/mL [facility] Troponin I.cardiac [Mass/Vol] ng/mL 0.000 - 0.034 ng/mL [facility] Lactate [Moles/Vol] 1.1 mmol/L 0.7 - 2. 0 mmol/L [facility] Laboratory - Coagulationon 0 11-25-2022 Fibrin D-dimer FEU (PPP) [Mass/Vol] 1.15 mg/L High NINF - 0.50 mg/L [facility] No Panel Informationon 11-25 Interpretation and review of laboratory results Normal [facility] 1. No PE identified. PE cannot be evaluated beyond the segmental level due to the limitations above. 2. Mild emphysematous changes in the lungs. No acute cardiopulmonary abnormalities. 3. No acute intra-abdominal abnormalities. Report Dictated on Electronically Signed By: Agustina Zarate Electronically Signed Date/Time: 11/25/2022 6:06 PM EDT [facility] Radiology Study observation (narrative) [facility] gabby Interpretation and review of laboratory results Normal [facility] Values below 35 ng/m L may be of doubtful significance. Recommend send-out testing to rule out macroprolactin to confirm the result. [facility] Values in should double every 2 to [...] or monitor tumors or gestational trophoblastic disease. [facility] Interpretation and review of laboratory results Normal [facility] P [place] 74 degrees [facility] [place] Interval 142 ms [facility] QRS [place] 78 degrees [facility] QRSD Interval 95 ms [facility] QT Interval 362 ms [facility] QTC Interval 484 ms [facility] T Wave [place] 72 degrees [facility] EKG shows sinus tachycardia, normal axis, normal intervals, no STEMI, no SVT. Borderline LVH. Previous EKG shows NSR with diffuse inferior and lateral T waves which are not present today. Electronically Signed On 11-25-2022 10:19:18 EDT by Earl Potrer MD - 11/25/2022 IMPRESSION: EKG shows sinus tachycardia, normal axis, normal intervals, no STEMI, no SVT. Borderline LVH. Previous EKG shows NSR with diffuse inferior and lateral T waves which are not present today. Electronically Signed On 11-25-2022 10:19:18 EDT by Earl Parson [facility] Respiratory pathogens DNA an d RNA panel KRISTEN+probe (Nph)on 11-25-2022 Adenovirus Not detected Not Detected [facility] B. pertussis DNA KRISTEN+probe Ql (Unsp spec) Not detected Not Detected [facility] Bordetella parapertussis Not detected Not Detected [facility] [facility] Chlam[facility] pneumoniae Not detected Not Detected [facility] Coronavirus [id number] Not detected Not Detected [facility] Coronavirus HKU1 Not detected Not Detected [facility] Coronavirus NL63 Not detected Not Detected [facility] Coronavirus OC43 Not detected Not Detected [facility] FLUAV RNA KRISTEN+non-probe Ql (Nph) Not detected Not Detected [facility] FLUBV RNA KRISTEN+non-probe Ql (Nph) Not detected Not Detected [facility] Human Metapneumovirus Not detected Not Detected [facility] Human Rhinovirus/Enterovirus Not detected Not Detected [facility] Interpretation and review of laboratory results Normal [facility] Mycoplasma pneumoniae Not detected Not Detected [facility] Parainfluenza 1 Not detected Not Detected [facility] Parainfluenza 2 Not detected Not Detected [facility] Parainfluenza 3 Not detected Not Detected [facility] Parainfluenza 4 Not detected Not Detected [facility] Respiratory Syncytial Virus Not detected Not Detected [facility] SARS-CoV-2 (COVID-19) RNA KRISTEN+non-probe Ql (Nph) Not detected Not Detected [facility] Methodology: Multipl ex PCR [facility] TSH Qnon 11-25-2022 Interpretation and review of laboratory results Normal [facility] Troponin I.cardiac [Mass/Vol ]on 11-25-2022 Interpretation and review of laboratory results Normal [facility] Patients with high levels of Biotin oral intake (ie >5 mg/day) may have falsely decreased Troponin levels. [facility] Vital signson 11-25-2022 Heart rate 107 /min bpm [facility] XR Chest Single viewon 11-25 Impression: No acute cardiopulmonary process. Report Dictated on Electronically Signed By: Rudy Valero Electronically Signed Date/Time: 11/25/2022 1:23 PM [facility] Patient Name: ORTIZ MASON [...] hardware plate. Minimal thoracic scoliosis apex rightward. [facility] Rudy Valero MD - 11/25/2022 [facility] 1970 [id number] Exam Date/Time: 11/25/2022 13:04 Procedure: XR CHEST [...] Electronically Signed Date/Time: 11/25/2022 1:23 PM EDT [facility] Radiology Study observation (narrative) [facility] XR Chest Single viewOrdered By: Rudy Valero on 11-25-2022 [facility] Work Phone: Absolute lymphocyte countOrd ered By: Alfredito Guerrero on 11-16-2022 Lymphocytes Auto (Unsp spec) [#/Vol] 4.45 10*3/uL 0.83-4.51 [facility] Basophil percentageOrdered B y: Alfredito Guerrero on 11-16-2022 Basophils/100 WBC (Bld) 0.6 % 0-1 [facility] Eosinophils/100 WBC (Bld) 1.1 % 0-5 [facility] Lactate [Moles/Vol] 0.9 mmol/L 0.4-[facility] Neutrophils (Bld) [#/Vol] 7.7 10*3/uL 2.0-7.7 [facility] Neutrophils/100 WBC (Bld) 54.4 % 47-70 [facility] WBC (Bld) [#/Vol] 14.1 10*3/uL 4.4-11.0 [facility] Blood erythrocytes count (nu mber/volume)Ordered By: Alfredito Guerrero on 11-16-2022 RBC (Bld) [#/Vol] 4.54 10*6/uL 4.2-5.4 [facility] Blood hemoglobin measurement (mass/volume)Ordered By: Alfredito Guerrero on 11-16-2022 Hemoglobin (Bld) [Mass/Vol] 14.0 g/dL 12.0-15.0 [facility] Blood lymphocytes/100 leukoc ytesOrdered By: Alfredito Guerrero on 11-16-2022 Lymphocytes/100 WBC (Bld) 31.6 % 19-41 [facility] Blood monocytes/100 leukocyt esOrdered By: Alfredito Guerrero on 11-16-2022 Monocytes/100 WBC (Bld) 10.2 % 0-10 [facility] Blood platelet mean volumeOr dered By: Alfredito Guerrero on 11-16-2022 Platelet mean volume (Bld) [Entitic vol] 9.5 fL 6.2-12.0 [facility] Determination of erythrocyte mean corpuscular volume (MCV)Ordered By: Alfredito Guerrero on 11-16-2022 MCV (RBC) [Entitic vol] 95.6 fL 81-99 [facility] Hematocrit Auto (Bld) [Volum e fraction]Ordered By: Alfredito Guerrero on 11-16-2022 Hematocrit (Bld) [Volume fraction] 43.4 % 37-47 [facility] Laboratory - Hematology and Cell countsOrdered By: Alfredito Guerrero on 11-16-2022 Erythrocyte distribution width (RBC) [Entitic vol] 46.1 fL 35.1-43.9 [facility] Erythrocyte distribution width (RBC) [Ratio] 13.1 % 11.6-14.6 [facility] Immature granulocytes/100 WBC (Bld) 2.100 % 0.0-0.9 [facility] Comment on above: IG% - Immature Granu locytes (promyelocytes, myelocytes and metamyelocytes) > 1% indicates that a LEFT SHIFT is Present. MCH (RBC) [Entitic mass] 30.8 pg 27.0-32.0 [facility] Nucleated RBC/100 WBC (Bld) [Ratio] 0 % 0-5 [facility] MCHC Auto (RBC) [Mass/Vol]Or dered By: Alfredito Guerrero on 11-16-2022 MCHC (RBC) [Mass/Vol] 32.3 g/dL 32-36 [facility] Platelets bldOrdered By: Tobin Guerrero on 11-16-2022 Platelets (Bld) [#/Vol] 416 10*3/uL 150-450 [facility] Serum or plasma C reactive p rotein measurement (mass/volume)Ordered By: Alfredito Guerrero on 11-16-2022 CRP [Mass/Vol] 7.14 mg/L 0.0-3.0 [facility] Comment on above: C-Reactive Protein ( CRP) provides useful information for thediagnosis, therapy and monitoring of inflammatory processesand associated diseases. For the evaluation of Relative Riskfor Cardiovascular Disease, a High Sensitivity CRP (HSCRP)should be ordered. Basic metabolic 1998 panelon 11-09-2022 Anion gap [Moles/Vol] 7 mmol/L 3 - 13 mmol/L [facility] Calcium [Mass/Vol] 8.9 mg/dL 8.4 - 10. 4 mg/dL [facility] Chloride [Moles/Vol] 108 mmol/L High 98 - 10 7 mmol/L [facility] CO2 [Moles/Vol] 26 mmol/L 22 - 30 mmol/L [facility] Creatinine [Mass/Vol] 0.68 mg/dL 0.52 - 1.04 mg/dL [facility] GFR/1.73 sq M.predicted MDRD (S/P/Bld) [Vol rate/Area] - PINF [facility] Comment on above: Calculation based on the Chronic Kidney Disease Epidemiology Collaboration (CKD-EPI) equation refit without adjustment for race Glucose [Mass/Vol] 93 mg/dL 70 - 100 mg/dL [facility] Interpretation and review of laboratory results Abnormal [facility] Potassium [Moles/Vol] 3.4 mmol/L Low 3.5 - 5.1 mmol/L [facility] Sodium [Moles/Vol] 142 mmol/L 135 - 145 mmol/L [facility] Urea nitrogen [Mass/Vol] 10 mg/dL 7 - 17 mg/dL [facility] Laboratory - Chemistry and C hemistry - challengeon 11-09-2022 Magnesium [Mass/Vol] 1.9 mg/dL 1.6 - 2 .3 mg/dL [facility] Magnesium [Mass/Vol]on 11-09 Interpretation and review of laboratory results Normal [facility] CBC W Auto Differential pane l (Bld)Ordered By: Mickie Sepulveda on 11-08-2022 Basophils (Bld) [#/Vol] 0.0 10*3/uL 0.0 - 0.2 10*3/uL [facility] Basophils/100 WBC (Bld) 0.3 % 0.0 - 2.0 % [facility] Eosinophils (Bld) [#/Vol] 0.0 10*3/uL 0.0 - 0.5 10*3/uL [facility] Eosinophils/100 WBC (Bld) 0.0 % Low 1.0 - 6.0 % [facility] Erythrocyte distribution width (RBC) [Ratio] 13.7 % 11.5 - 14.5 % [facility] Hematocrit (Bld) [Volume fraction] 37.4 % 35.0 - 47.0 % [facility] Hemoglobin (Bld) [Mass/Vol] 12.6 g/dL 11.7 - 16.0 g/dL [facility] Interpretation and review of laboratory results Abnormal [facility] Lymphocytes (Bld) [#/Vol] 0.7 10*3/uL Low 1.0 - 4.3 10*3/uL [facility] Lymphocytes/100 WBC (Bld) 6.8 % Low 20.0 - 40.0 % [facility] MCH (RBC) [Entitic mass] 31.5 pg 26.0 - 34.0 pg [facility] MCHC (RBC) [Mass/Vol] 33.7 % 32.0 - 36.0 % [facility] MCV (RBC) [Entitic vol] 93.2 fL 80.0 - 98.0 fL [facility] Monocytes (Bld) [#/Vol] 0.3 10*3/uL 0.0 - 0.8 10*3/uL [facility] Monocytes/100 WBC (Bld) 2.5 % 2.0 - 10.0 % [facility] Neutrophils (Bld) [#/Vol] 9.9 10*3/uL High 1.8 - 7.0 10*3/uL [facility] Neutrophils/100 WBC (Bld) 90.4 % High 40.0 - 80.0 % [facility] Nucleated RBC/100 WBC (Bld) [Ratio] 0.0 % [facility] Platelet mean volume (Bld) [Entitic vol] 8.8 fL 7.4 - 12.4 fL [facility] Platelets (Bld) [#/Vol] 215 10*3/uL 140 - 440 10*3/uL [facility] RBC (Bld) [#/Vol] 4.02 10*6/uL 3.8 - 5.20 10*6/uL [facility] WBC (Bld) [#/Vol] 11.0 10*3/uL High 3.6 - 10.7 10*3/uL [facility] CBC W Auto Differential pane l (Bld)Ordered By: Rudy Franco on 11-07-2022 Basophils (Bld) [#/Vol] 0.0 10*3/uL 0.0 - 0.2 10*3/uL [facility] Basophils/100 WBC (Bld) 0.1 % 0.0 - 2.0 % [facility] Eosinophils (Bld) [#/Vol] 0.0 10*3/uL 0.0 - 0.5 10*3/uL [facility] Eosinophils/100 WBC (Bld) 0.0 % Low 1.0 - 6.0 % [facility] Erythrocyte distribution width (RBC) [Ratio] 13.7 % 11.5 - 14.5 % [facility] Hematocrit (Bld) [Volume fraction] 41.8 % 35.0 - 47.0 % [facility] Hemoglobin (Bld) [Mass/Vol] 13.4 g/dL 11.7 - 16.0 g/dL [facility] Interpretation and review of laboratory results Abnormal [facility] Lymphocytes (Bld) [#/Vol] 1.5 10*3/uL 1.0 - 4.3 10*3/uL [facility] Lymphocytes/100 WBC (Bld) 9.1 % Low 20.0 - 40.0 % [facility] MCH (RBC) [Entitic mass] 30.7 pg 26.0 - 34.0 pg [facility] MCHC (RBC) [Mass/Vol] 32.0 % 32.0 - 36.0 % [facility] MCV (RBC) [Entitic vol] 95.9 fL 80.0 - 98.0 fL [facility] Monocytes (Bld) [#/Vol] 0.8 10*3/uL 0.0 - 0.8 10*3/uL [facility] Monocytes/100 WBC (Bld) 5.0 % 2.0 - 10.0 % [facility] Neutrophils (Bld) [#/Vol] 14.3 10*3/uL High 1.8 - 7.0 10*3/uL [facility] Neutrophils/100 WBC (Bld) 85.8 % High 40.0 - 80.0 % [facility] Nucleated RBC/100 WBC (Bld) [Ratio] 0.1 % [facility] Platelet mean volume (Bld) [Entitic vol] 8.1 fL 7.4 - 12.4 fL [facility] Platelets (Bld) [#/Vol] 263 10*3/uL 140 - 440 10*3/uL [facility] RBC (Bld) [#/Vol] 4.36 10*6/uL 3.8 - 5.20 10*6/uL [facility] WBC (Bld) [#/Vol] 16.7 10*3/uL High 3.6 - 10.7 10*3/uL [facility] Laboratory - Chemistry and C hemistry - challengeon 11-07-2022 Potassium [Moles/Vol] 4.3 mmol/L 3.5 - 5.1 mmol/L [facility] Laboratory - Coagulationon 0 11-07-2022 PT Coag (Bld) [Time] 10.6 s 9.0 - 12.0 s [facility] PT Coag (Bld) [Time]on 11-07 INR Coag (PPP) [Relative time] 1.0 {INR} 0.9 - 1.1 [facility] Comment on above: Recommended Anticoag ulant [...] Interpretation and review of laboratory results Normal [facility] Potassium [Moles/Vol]on 10-22 Interpretation and review of laboratory results Normal [facility] CBC W Auto Differential pane l (Bld)Ordered By: Stephania Guzman on 11-06-2022 Basophils (Bld) [#/Vol] 0.1 10*3/uL 0.0 - 0.2 10*3/uL [facility] Basophils/100 WBC (Bld) 1.0 % 0.0 - 2.0 % [facility] Eosinophils (Bld) [#/Vol] 0.1 10*3/uL 0.0 - 0.5 10*3/uL [facility] Eosinophils/100 WBC (Bld) 0.7 % Low 1.0 - 6.0 % [facility] Erythrocyte distribution width (RBC) [Ratio] 13.7 % 11.5 - 14.5 % [facility] Hematocrit (Bld) [Volume fraction] 46.2 % 35.0 - 47.0 % [facility] Hemoglobin (Bld) [Mass/Vol] 15.4 g/dL 11.7 - 16.0 g/dL [facility] Interpretation and review of laboratory results Abnormal [facility] Lymphocytes (Bld) [#/Vol] 2.2 10*3/uL 1.0 - 4.3 10*3/uL [facility] Lymphocytes/100 WBC (Bld) 22.6 % 20.0 - 40.0 % [facility] MCH (RBC) [Entitic mass] 30.9 pg 26.0 - 34.0 pg [facility] MCHC (RBC) [Mass/Vol] 33.2 % 32.0 - 36.0 % [facility] MCV (RBC) [Entitic vol] 92.9 fL 80.0 - 98.0 fL [facility] Monocytes (Bld) [#/Vol] 0.5 10*3/uL 0.0 - 0.8 10*3/uL [facility] Monocytes/100 WBC (Bld) 5.1 % 2.0 - 10.0 % [facility] Neutrophils (Bld) [#/Vol] 7.0 10*3/uL 1.8 - 7.0 10*3/uL [facility] Neutrophils/100 WBC (Bld) 70.6 % 40.0 - 80.0 % [facility] Nucleated RBC/100 WBC (Bld) [Ratio] 0.1 % [facility] Platelet mean volume (Bld) [Entitic vol] 7.9 fL 7.4 - 12.[address] [facility] Platelets (Bld) [#/Vol] 306 10*3/uL 140 - 440 10*3/uL [facility] RBC (Bld) [#/Vol] 4.98 10*6/uL 3.8 - 5.20 10*6/uL [facility] WBC (Bld) [#/Vol] 9.9 10*3/uL 3.6 - 10.7 10*3/uL [facility] No Panel Informationon 11-06 There is no interpretation needed for this exam. IMAGING There is no interpretation needed for this exam. IMAGING ECG 12 leadon 10-30-2022 [facility] XR Chest 2 Viewson No acute process. Report Dictated on Electronically Signed By: Augustine Pelayo Electronically Signed Date/Time: 10/30/2022 11:16 AM EST [facility] MMIT SYSTEM Patient Name: ORTIZ MASON : 1970 [...] effusion. Postsurgical changes in the cervical spine. [facility] Augustine Pelayo MD - 10/30/2022 [...] Electronically Signed Date/Time: 10/30/2022 11:16 AM EST [facility] Radiology Study observation (narrative) [facility] XR Chest 2 ViewsOrdered By: Augustine Pelayo on 10-30-2022 [facility] Work Phone: CBC panel Auto (Bld)on 10-03 Erythrocyte distribution width (RBC) [Ratio] 13.6 % 11.5 - 14.5 % [facility] Hematocrit (Bld) [Volume fraction] 44.7 % 35.0 - 47.0 % [facility] Hemoglobin (Bld) [Mass/Vol] 15.2 g/dL 11.7 - 16.0 g/dL [facility] Interpretation and review of laboratory results Normal [facility] MCH (RBC) [Entitic mass] 31.5 pg 26.0 - 34.0 pg [facility] MCHC (RBC) [Mass/Vol] 34.1 % 32.0 - 36.0 % [facility] MCV (RBC) [Entitic vol] 92.3 fL 80.0 - 98.0 fL [facility] Platelet mean volume (Bld) [Entitic vol] 7.9 fL 7.4 - 12.4 fL [facility] Platelets (Bld) [#/Vol] 331 10*3/uL 140 - 440 10*3/uL [facility] RBC (Bld) [#/Vol] 4.84 10*6/uL 3.8 - 5.20 10*6/uL [facility] WBC (Bld) [#/Vol] 6.4 10*3/uL 3.6 - 10.7 10*3/uL [facility] Laboratory - Coagulationon 0 10-03-2022 PT Coag [...] Electronically Signed Date/Time: 10/03/2022 2:52 PM [facility] Patient Name: ORTIZ MASON [...] moderate facet arthrosis. Neural foramina remain patent. [facility] Amelie Chery MD - 10/03/2022 [...] Electronically Signed Date/Time: 10/03/2022 2:52 PM EST [facility] Radiology Study observation (narrative) [facility] [place] gabby No Panel InformationOrdered By: Amelie Chery on 10-03-2022 [facility] Work Phone: PT Coag (Bld) [Time]on 10-03 INR Coag (PPP) [Relative time] 0.9 {INR} 0.9 - 1.1 [facility] Comment on above: Recommended Anticoag ulant [...] Interpretation and review of laboratory results Normal [facility] Absolute lymphocyte countOrd ered By: Dr. Jeffrey on 09-23-2022 Lymphocytes Auto (Unsp spec) [#/Vol] 1.88 10*3/uL 0.83-4.51 [facility] Basophil percentageOrdered B y: Dr. Jeffrey on 09-23-2022 Basophils/100 WBC (Bld) 0.5 % 0-1 [facility] Bilirubin [Mass/Vol] 0.30 mg/dL 0.20-1.00 [facility] Comment on above: For patients on eltr ombopag therapy, use of Dimension [place] TBIL is not recommended. Chloride [Moles/Vol] 108 mmol/L 98-107 [facility] Eosinophils/100 WBC (Bld) 0.5 % 0-5 [facility] Glucose [Mass/Vol] 108 mg/dL 74-106 [facility] Comment on above: Fasting Glucose resu lt from 100 to 125 mg/dL suggests IMPAIRED HOMEOSTASIS per A.D.A. criteria. Neutrophils (Bld) [#/Vol] 7.0 10*3/uL 2.0-7.7 [facility] Neutrophils/100 WBC (Bld) 72.9 % 47-70 [facility] Potassium [Moles/Vol] 4.2 mmol/L 3.5-5.1 [facility] Protein [Mass/Vol] 7.7 g/dL 6.4-8.2 [facility] Sodium [Moles/Vol] 139 mmol/L 136-145 [facility] WBC (Bld) [#/Vol] 9.6 10*3/uL 4.4-11.0 [facility] Blood erythrocytes count (nu mber/volume)Ordered By: Dr. Jeffrey on 09-23-2022 RBC (Bld) [#/Vol] 5.21 10*6/uL 4.2-5.4 [facility] Blood hemoglobin measurement (mass/volume)Ordered By: Dr. Jeffrey on 09-23-2022 Hemoglobin (Bld) [Mass/Vol] 16.0 g/dL 12.0-15.0 [facility] Blood lymphocytes/100 leukoc ytesOrdered By: Dr. Jeffrey on 09-23-2022 Lymphocytes/100 WBC (Bld) 19.6 % 19-41 [facility] Blood monocytes/100 leukocyt esOrdered By: Dr. Jeffrey on 09-23-2022 Monocytes/100 WBC (Bld) 6.1 % 0-10 [facility] Blood platelet mean volumeOr dered By: Dr. Jeffrey on 09-23-2022 Platelet mean volume (Bld) [Entitic vol] 10.0 fL 6.2-12.0 [facility] Determination of erythrocyte mean corpuscular volume (MCV)Ordered By: Dr. Jeffrey on 09-23-2022 MCV (RBC) [Entitic vol] 91.6 fL 81-99 [facility] Direct bilirubinOrdered By: Dr. Jeffrey on 09-23-2022 Bilirubin.direct [Mass/Vol] 0.12 mg/dL 0.00-0.30 [facility] Hematocrit Auto (Bld) [Volum e fraction]Ordered By: Dr. Jeffrey on 09-23-2022 Hematocrit (Bld) [Volume fraction] 47.7 % 37-47 [facility] Laboratory - Chemistry and C hemistry - challengeOrdered By: Dr. Jeffrey on 09-23-2022 ALP [Catalytic activity/Vol] 195 U/L 45-117 [facility] ALT [Catalytic activity/Vol] 25 U/L 13-56 [facility] CO2 [Moles/Vol] 23.0 mmol/L 21.0-32.0 [facility] Globulin (S) [Mass/Vol] 3.7 g/dL 2.2-4.2 [facility] Lipase [Catalytic activity/Vol] 115 U/L 73-393 [facility] Urea nitrogen/Creatinine [Mass ratio] 12.6 mg/mg 10-20 [facility] Laboratory - Hematology and Cell countsOrdered By: Dr. Jeffrey on 09-23-2022 Erythrocyte distribution width (RBC) [Entitic vol] 42.8 fL 35.1-43.9 [facility] Erythrocyte distribution width (RBC) [Ratio] 12.8 % 11.6-14.6 [facility] Immature granulocytes/100 WBC (Bld) 0.400 % 0.0-0.9 [facility] Comment on above: IG% - Immature Granu locytes (promyelocytes, myelocytes and metamyelocytes) > 1% indicates that a LEFT SHIFT is Present. MCH (RBC) [Entitic mass] 30.7 pg 27.0-32.0 [facility] Nucleated RBC/100 WBC (Bld) [Ratio] 0 % 0-5 [facility] MCHC Auto (RBC) [Mass/Vol]Or dered By: Dr. Jeffrey on 09-23-2022 MCHC (RBC) [Mass/Vol] 33.5 g/dL 32-36 [facility] No Panel InformationOrdered By: Dr. Jeffrey on 09-23-2022 Troponin I High Sensitivity < 3 pg/mL 3.0-54.0 [facility] Comment on above: Please Note: New Evelyn t Units and Gender Specific Reference Ranges. For more information see Policy Stat Procedure [place] High Sensitivity Troponin (TNIH) and attachments. Estimated Creatinine Clearance Calc 107.93 ml/min [facility] Estimated GFR (MDRD) Amer 126 mL/min >60 [facility] Comment on above: GFR Calc Estimated GFR (MDRD) Non-Af Amer 104 mL/min >60 [facility] Comment on above: Non- GFR Calc Platelets bldOrdered By: Dr. Jeffrey on 09-23-2022 Platelets (Bld) [#/Vol] 327 10*3/uL 150-450 [facility] Serum or plasma albumin tania urement (mass/volume)Ordered By: Dr. Jeffrey on 09-23-2022 Albumin [Mass/Vol] 4.0 g/dL 3.2-5.0 [facility] Serum or plasma calcium tania urement (mass/volume)Ordered By: Dr. Jeffrey on 09-23-2022 Calcium [Mass/Vol] 9.3 mg/dL 8.5-10.1 [facility] Serum or plasma creatinine m easurement (mass/volume)Ordered By: Dr. Jeffrey on 09-23-2022 Creatinine [Mass/Vol] 0.63 mg/dL 0.55-1.02 [facility] Comment on above: The validity of the calculated GFR & GFRAA in patients over 70 years has not been determined. Clinical correlation is essential. Serum or plasma urea nitroge n measurement (mass/volume)Ordered By: Dr. Jeffrey on 09-23-2022 Urea nitrogen [Mass/Vol] 8 mg/dL 7-18 [facility] Thin prep Papanicolaou smear with manual screeningOrdered By: Dr. Jeffrey on 09-23-2022 Thin prep Papanicolaou smear with manual screening 24 U/L 15-37 [facility] Thin prep Papanicolaou smear with manual screening 8 5-15 [facility] Absolute lymphocyte countOrd ered By: Dr. Chaney on 08-24-2022 Lymphocytes Auto (Unsp spec) [#/Vol] 2.95 10*3/uL 0.83-4.51 [facility] Basophil percentageOrdered B y: Dr. Chaney on 08-24-2022 Basophils/100 WBC (Bld) 0.6 % 0-1 [facility] Bilirubin [Mass/Vol] 0.30 mg/dL 0.20-1.00 [facility] Comment on above: For patients on eltr ombopag therapy, use of Dimension [place] TBIL is not recommended. Chloride [Moles/Vol] 110 mmol/L 98-107 [facility] Eosinophils/100 WBC (Bld) 1.0 % 0-5 [facility] Glucose [Mass/Vol] 99 mg/dL 74-106 [facility] Neutrophils (Bld) [#/Vol] 6.2 10*3/uL 2.0-7.7 [facility] Neutrophils/100 WBC (Bld) 61.6 % 47-70 [facility] Potassium [Moles/Vol] 4.1 mmol/L 3.5-5.1 [facility] Protein [Mass/Vol] 7.6 g/dL 6.4-8.2 [facility] Sodium [Moles/Vol] 141 mmol/L 136-145 [facility] WBC (Bld) [#/Vol] 10.0 10*3/uL 4.4-11.0 [facility] Blood erythrocytes count (nu mber/volume)Ordered By: Dr. Chaney on 08-24-2022 RBC (Bld) [#/Vol] 5.31 10*6/uL 4.2-5.4 [facility] Blood hemoglobin measurement (mass/volume)Ordered By: Dr. Chaney on 08-24-2022 Hemoglobin (Bld) [Mass/Vol] 16.4 g/dL 12.0-15.0 [facility] Blood lymphocytes/100 leukoc ytesOrdered By: Dr. Chaney on 08-24-2022 Lymphocytes/100 WBC (Bld) 29.5 % 19-41 [facility] Blood monocytes/100 leukocyt esOrdered By: Dr. Chaney on 08-24-2022 Monocytes/100 WBC (Bld) 6.8 % 0-10 [facility] Blood platelet mean volumeOr dered By: Dr. Chaney on 08-24-2022 Platelet mean volume (Bld) [Entitic vol] 9.8 fL 6.2-12.0 [facility] Determination of erythrocyte mean corpuscular volume (MCV)Ordered By: Dr. Chaney on 08-24-2022 MCV (RBC) [Entitic vol] 93.2 fL 81-99 [facility] Hematocrit Auto (Bld) [Volum e fraction]Ordered By: Dr. Chaney on 08-24-2022 Hematocrit (Bld) [Volume fraction] 49.5 % 37-47 [facility] Laboratory - Chemistry and C hemistry - challengeOrdered By: Dr. Chaney on 08-24-2022 ALP [Catalytic activity/Vol] 186 U/L 45-117 [facility] ALT [Catalytic activity/Vol] 21 U/L 13-56 [facility] CO2 [Moles/Vol] 24.0 mmol/L 21.0-32.0 [facility] Globulin (S) [Mass/Vol] 3.9 g/dL 2.2-4.2 [facility] Lipase [Catalytic activity/Vol] 164 U/L 73-393 [facility] Urea nitrogen/Creatinine [Mass ratio] 9.4 mg/mg 10-20 [facility] Laboratory - Hematology and Cell countsOrdered By: Dr. Chaney on 08-24-2022 Erythrocyte distribution width (RBC) [Entitic vol] 43.2 fL 35.1-43.9 [facility] Erythrocyte distribution width (RBC) [Ratio] 12.6 % 11.6-14.6 [facility] Immature granulocytes/100 WBC (Bld) 0.500 % 0.0-0.9 [facility] [facility] Comment on above: IG% - Immature Granu locytes (promyelocytes, myelocytes and metamyelocytes) > 1% indicates that a LEFT SHIFT is Present. MCH (RBC) [Entitic mass] 30.9 pg 27.0-32.0 [facility] Nucleated RBC/100 WBC (Bld) [Ratio] 0 % 0-5 [facility] MCHC Auto (RBC) [Mass/Vol]Or dered By: Dr. Chaney on 08-24-2022 MCHC (RBC) [Mass/Vol] 33.1 g/dL 32-36 [facility] No Panel InformationOrdered By: Dr. Chaney on 08-24-2022 Troponin I High Sensitivity 4 pg/mL 3.0-54.0 [facility] Comment on above: Please Note: New Evelyn t Units and Gender Specific Reference Ranges. For more information see Policy Stat Procedure [place] High Sensitivity Troponin (TNIH) and attachments. Estimated Creatinine Clearance Calc 106.24 ml/min [facility] Estimated GFR (MDRD) Amer 125 mL/min >60 [facility] Comment on above: GFR Calc Estimated GFR (MDRD) Non-Af Amer 103 mL/min >60 [facility] Comment on above: Non- GFR Calc Platelets bldOrdered By: Dr. Chaney on 08-24-2022 Platelets (Bld) [#/Vol] 442 10*3/uL 150-450 [facility] Serum or plasma albumin tania urement (mass/volume)Ordered By: Dr. Chaney on 08-24-2022 Albumin [Mass/Vol] 3.7 g/dL 3.2-5.0 [facility] Serum or plasma albumin/glob ulin mass ratioOrdered By: Dr. Chaney on 08-24-2022 Albumin/Globulin [Mass ratio] 0.9 {ratio} 0.9-2.4 [facility] Serum or plasma calcium tania urement (mass/volume)Ordered By: Dr. Chaney on 08-24-2022 Calcium [Mass/Vol] 8.8 mg/dL 8.5-10.1 [facility] Serum or plasma creatinine m easurement (mass/volume)Ordered By: Dr. Chaney on 08-24-2022 Creatinine [Mass/Vol] 0.64 mg/dL 0.55-1.02 [facility] Comment on above: The validity of the calculated GFR & GFRAA in patients over 70 years has not been determined. Clinical correlation is essential. Serum or plasma urea nitroge n measurement (mass/volume)Ordered By: Dr. Chaney on 08-24-2022 Urea nitrogen [Mass/Vol] 6 mg/dL 7-18 [facility] Thin prep Papanicolaou smear with manual screeningOrdered By: Dr. Chaney on 08-24-2022 Thin prep Papanicolaou smear with manual screening 18 U/L 15-37 [facility] Thin prep Papanicolaou smear with manual screening 7 5-15 [facility] Absolute lymphocyte countOrd ered By: Dr. Parkinson on 08-20-2022 Lymphocytes Auto (Unsp spec) [#/Vol] 3.73 10*3/uL 0.83-4.51 [facility] Basophil percentageOrdered B y: Dr. Parkinson on 08-20-2022 Basophils/100 WBC (Bld) 0.5 % 0-1 [facility] Chloride [Moles/Vol] 110 mmol/L 98-107 [facility] Eosinophils/100 WBC (Bld) 1.3 % 0-5 [facility] Glucose [Mass/Vol] 99 mg/dL 74-106 [facility] Neutrophils (Bld) [#/Vol] 5.5 10*3/uL 2.0-7.7 [facility] Neutrophils/100 WBC (Bld) 54.3 % 47-70 [facility] Potassium [Moles/Vol] 3.7 mmol/L 3.5-5.1 [facility] Sodium [Moles/Vol] 143 mmol/L 136-145 [facility] WBC (Bld) [#/Vol] 10.0 10*3/uL 4.4-11.0 [facility] Blood erythrocytes count (nu mber/volume)Ordered By: Dr. Parkinson on 08-20-2022 RBC (Bld) [#/Vol] 4.75 10*6/uL 4.2-5.4 [facility] Blood hemoglobin measurement (mass/volume)Ordered By: Dr. Parkinson on 08-20-2022 Hemoglobin (Bld) [Mass/Vol] 14.9 g/dL 12.0-15.0 [facility] Blood lymphocytes/100 leukoc ytesOrdered By: Dr. Parkinson on 08-20-2022 Lymphocytes/100 WBC (Bld) 37.2 % 19-41 [facility] Blood monocytes/100 leukocyt esOrdered By: Dr. Parkinson on 08-20-2022 Monocytes/100 WBC (Bld) 6.3 % 0-10 [facility] Blood platelet mean volumeOr dered By: Dr. Parkinson on 08-20-2022 Platelet mean volume (Bld) [Entitic vol] 9.6 fL 6.2-12.0 [facility] COVID-19 virus antigen assay Ordered By: Dr. Parkinson on 08-20-2022 SARS-CoV-2 (COVID-19) Ag IA.rapid Ql (Resp) [facility] Determination of erythrocyte mean corpuscular volume (MCV)Ordered By: Dr. Parkinson on 08-20-2022 MCV (RBC) [Entitic vol] 92.0 fL 81-99 [facility] Hematocrit Auto (Bld) [Volum e fraction]Ordered By: Dr. Parkinson on 08-20-2022 Hematocrit (Bld) [Volume fraction] 43.7 % 37-47 [facility] Laboratory - Chemistry and C hemistry - challengeOrdered By: Dr. Parkinson on 08-20-2022 CO2 [Moles/Vol] 28.0 mmol/L 21.0-32.0 [facility] Urea nitrogen/Creatinine [Mass ratio] 11.6 mg/mg 10-20 [facility] Laboratory - Hematology and Cell countsOrdered By: Dr. Parkinson on 08-20-2022 Erythrocyte distribution width (RBC) [Entitic vol] 41.9 fL 35.1-43.9 [facility] Erythrocyte distribution width (RBC) [Ratio] 12.4 % 11.6-14.6 [facility] Immature granulocytes/100 WBC (Bld) 0.400 % 0.0-0.9 [facility] Comment on above: IG% - Immature Granu locytes (promyelocytes, myelocytes and metamyelocytes) > 1% indicates that a LEFT SHIFT is Present. MCH (RBC) [Entitic mass] 31.4 pg 27.0-32.0 [facility] Nucleated RBC/100 WBC (Bld) [Ratio] 0 % 0-5 [facility] MCHC Auto (RBC) [Mass/Vol]Or dered By: Dr. Parkinson on 08-20-2022 MCHC (RBC) [Mass/Vol] 34.1 g/dL 32-36 [facility] No Panel InformationOrdered By: Dr. Parkinson on 08-20-2022 Estimated Creatinine Clearance Calc 98.54 ml/min [facility] Estimated GFR (MDRD) Amer 114 mL/min >60 [facility] Comment on above: GFR Calc Estimated GFR (MDRD) Non-Af Amer 94 mL/min >60 [facility] Comment on above: Non- GFR Calc Platelets bldOrdered By: Dr. Parkinson on 08-20-2022 Platelets (Bld) [#/Vol] 389 10*3/uL 150-450 [facility] Serum or plasma calcium tania urement (mass/volume)Ordered By: Dr. Parkinson on 08-20-2022 Calcium [Mass/Vol] 9.0 mg/dL 8.5-10.1 [facility] Serum or plasma creatinine m easurement (mass/volume)Ordered By: Dr. Parkinson on 08-20-2022 Creatinine [Mass/Vol] 0.69 mg/dL 0.55-1.02 [facility] Comment on above: The validity of the calculated GFR & GFRAA in patients over 70 years has not been determined. Clinical correlation is essential. Serum or plasma urea nitroge n measurement (mass/volume)Ordered By: Dr. Parkinson on 08-20-2022 Urea nitrogen [Mass/Vol] 8 mg/dL 7-18 [facility] Thin prep Papanicolaou smear with manual screeningOrdered By: Dr. Parkinson on 08-20-2022 Thin prep Papanicolaou smear with manual screening 5 5-15 [facility] Laboratory - Drug toxicology on 04-02-2022 Amphetamines Ql (U) Negative <1000 ng/mL [facility] Work Phone: [phone] Benzodiazepines Ql (U) Negative < 200 ng/mL [facility] Work Phone: [phone] Cannabinoids Screen Ql (U) Negative < 50 ng/mL [facility] Work Phone: [phone] Cocaine Ql (U) Negative < 300 ng/mL [facility] Work Phone: [phone] Opiates Ql (U) Negative < 300 ng/mL [facility] Work Phone: No Panel Informationon 04-02 MDMA (Ecstasy) Screen Negative < 500 ng/mL [facility] Work Phone: Miscellaneous Test See comment [facility] Work Phone: Comment on above: [id number] 6+OXYCODONE-B UND (ng/mL) DRUG RESULT SCREEN CUTOFF____ Amphetamines,Urine Negative ng/mL 1000 Amphetamine test includes Amphetamine and Methamphetamine.Barbiturates Negative ng/mL 200Benzodiazepines Negative ng/mL 200Cannabinoid Negative ng/mL 20Cocaine (Metab) Negative ng/mL 300Opiates Negative ng/mL 300 Opiates test includes Codeine, Morphine, Hydromorphone, Hydrocodone. Oxycodone/Oxymorphone,Urine Negative ng/mL 300 Test includes Oxydodone and Oxymorphone. TESTING PERFORMED AT [facility]. ORIGINAL REPORT ON FILE IN LAB CONTAINS ADDITIONAL TEST SITE INFORMATION. Urine Barbiturates Screen Negative < 200 ng/mL [facility] Work Phone: Urine Drug Screen Comment [facility] Work Phone: Comment on above: CONFIRMATORY TESTING [...] Methadone Screen Negative < 300 ng/mL [facility] Work Phone: Urine phencyclidine (PCP) de tectionon 04-02-2022 Phencyclidine Ql (U) Negative < 25 ng/mL [facility] Work Phone: Absolute lymphocyte counton 01-27-2022 Lymphocytes Auto (Unsp spec) [#/Vol] 2.86 10*3/uL 0.83-4.51 [facility] Work Phone: Basophil percentageon 2021 Lactate [Moles/Vol] 1.6 mmol/L 0.4-2.0 [facility] Work Phone: Basophils/100 WBC (Bld) 0.7 % 0-1 [facility] Work Phone: [phone] Eosinophils/100 WBC (Bld) 1.0 % 0-5 [facility] Work Phone: Neutrophils (Bld) [#/Vol] 5.0 10*3/uL 2.0-7.7 [facility] Work Phone: Neutrophils/100 WBC (Bld) 57.6 % 47-70 [facility] Work Phone: WBC (Bld) [#/Vol] 8.7 10*3/uL 4.4-11.0 [facility] Work Phone: Bilirubin [Mass/Vol] 0.10 mg/dL 0.20-1.00 [facility] Work Phone: Comment on above: For patients on eltr ombopag therapy, use of Dimension [place] TBIL is not recommended. Chloride [Moles/Vol] 108 mmol/L 98-107 [facility] Work Phone: Glucose [Mass/Vol] 86 mg/dL 74-106 [facility] Work Phone: Potassium [Moles/Vol] 3.4 mmol/L 3.5-5.1 [facility] Work Phone: Protein [Mass/Vol] 6.9 g/dL 6.4-8.2 [facility] Work Phone: Sodium [Moles/Vol] 140 mmol/L 136-145 [facility] Work Phone: Blood erythrocytes count (nu mber/volume)on 01-27-2022 RBC (Bld) [#/Vol] 4.54 10*6/uL 4.2-5.4 [facility] Work Phone: Blood hemoglobin measurement (mass/volume)on 01-27-2022 Hemoglobin (Bld) [Mass/Vol] 14.2 g/dL 12.0-15.0 [facility] Work Phone: Blood lymphocytes/100 leukoc yteson 01-27-2022 Lymphocytes/100 WBC (Bld) 32.8 % 19-41 [facility] Work Phone: Blood manual differential co mment interpretation (narrative result)on 01-27-2022 Manual differential comment Albert (Bld) [Interp] SEE COMMENT [facility] Work Phone: Blood monocytes/100 leukocyt eson 01-27-2022 Monocytes/100 WBC (Bld) 6.8 % 0-10 [facility] Work Phone: Blood platelet adequacy dete ction by light microscopyon 01-27-2022 Platelets LM Ql (Bld) ADEQUATE ADEQ [facility] Work Phone: Blood platelet mean volumeon 01-27-2022 Platelet mean volume (Bld) [Entitic vol] 9.7 fL 6.2-12.0 [facility] Work Phone: [phone] Determination of erythrocyte mean corpuscular volume (MCV)on 01-27-2022 MCV (RBC) [Entitic vol] 96.3 fL 81-99 [facility] Work Phone: [phone] Hematocrit Auto (Bld) [Volum e fraction]on 01-27-2022 Hematocrit (Bld) [Volume fraction] 43.7 % 37-47 [facility] Work Phone: [phone] Laboratory - Chemistry and C hemistry - challengeon 01-27-2022 ALP [Catalytic activity/Vol] 133 U/L 45-117 [facility] Work Phone: ALT [Catalytic activity/Vol] 20 U/L 13-56 [facility] Work Phone: CO2 [Moles/Vol] 25.0 mmol/L 21.0-32.0 [facility] Work Phone: Globulin (S) [Mass/Vol] 3.9 g/dL 2.2-4.2 [facility] Work Phone: Urea nitrogen/Creatinine [Mass ratio] 10.4 mg/mg 10-20 [facility] Work Phone: Laboratory - Hematology and Cell countson 01-27-2022 Anisocytosis Ql (Bld) 1+ [facility] Work Phone: Erythrocyte distribution width (RBC) [Entitic vol] 43.8 fL 35.1-43.9 [facility] Work Phone: [phone] Erythrocyte distribution width (RBC) [Ratio] 12.4 % 11.6-14.6 [facility] Work Phone: Immature granulocytes/100 WBC (Bld) 1.100 % 0.0-0.9 [facility] Work Phone: [phone] Comment on above: IG% - Immature Granu locytes (promyelocytes, myelocytes and metamyelocytes) > 1% indicates that a LEFT SHIFT is Present. MCH (RBC) [Entitic mass] 31.3 pg 27.0-32.0 [facility] Work Phone: Nucleated RBC/100 WBC (Bld) [Ratio] 0 % 0-5 [facility] Work Phone: [phone] MCHC Auto (RBC) [Mass/Vol]on 01-27-2022 MCHC (RBC) [Mass/Vol] 32.5 g/dL 32-36 [facility] Work Phone: Macrocytes detectionon 01-27 Macrocytes Ql (Bld) 1+ [facility] Work Phone: No Panel Informationon 01-27 Atypical Lymphocytes 1+ % [facility] Work Phone: Estimated Creatinine Clearance Calc 141.65 ml/min [facility] Work Phone: [phone] Estimated GFR (MDRD) Amer 174 mL/min >60 [facility] Work Phone: Comment on above: GFR Calc Estimated GFR (MDRD) Non-Af Amer 144 mL/min >60 [facility] Work Phone: Comment on above: Non- GFR Calc Platelets bldon 01-27-2022 Platelets (Bld) [#/Vol] 400 10*3/uL 150-450 [facility] Work Phone: RBC morphologyon 01-27-2022 RBC morphology finding Nom (Bld) N CHROM NORMAL NORM C&C [facility] Work Phone: Serum or plasma albumin tania urement (mass/volume)on 01-27-2022 Albumin [Mass/Vol] 3.0 g/dL 3.2-5.0 [facility] Work Phone: Serum or plasma albumin/glob ulin mass ratioon 01-27-2022 Albumin/Globulin [Mass ratio] 0.8 {ratio} 0.9-2.4 [facility] Work Phone: Serum or plasma calcium tania urement (mass/volume)on 01-27-2022 Calcium [Mass/Vol] 8.8 mg/dL 8.5-10.1 [facility] Work Phone: Serum or plasma creatinine m easurement (mass/volume)on 01-27-2022 Creatinine [Mass/Vol] 0.48 mg/dL 0.55-1.02 [facility] Work Phone: Comment on above: The validity of the calculated GFR & GFRAA in patients over 70 years has not been determined. Clinical correlation is essential. Serum or plasma urea nitroge n measurement (mass/volume)on 01-27-2022 Urea nitrogen [Mass/Vol] 5 mg/dL 7-18 [facility] Work Phone: Thin prep Papanicolaou smear with manual screeningon 01-27-2022 Thin prep Papanicolaou smear with manual screening 20 U/L 15-37 [facility] Work Phone: Thin prep Papanicolaou smear with manual screening 7 5-15 [facility] Work Phone: Basic Metabolic Panelon 04-25 Calcium [Mass/Vol] 8.5 mg/dL Normal 8.4-10.4 [facility] Comment on above: Performed By: #### C UA2 #### [facility] [place] [address] Glucose [Mass/Vol] 79 mg/dL Normal 70-100 [facility] Comment on above: Performed By: #### C UA2 #### [facility] [place], [place] Anion gap [Moles/Vol] 6 Normal [facility] Comment on above: Performed By: #### C UA2 #### [address] CO2 [Moles/Vol] 25 mmol/L Normal 22-30 [facility] Comment on above: Performed By: #### C UA2 #### [address] Creatinine [Mass/Vol] 0.61 mg/dL Normal 0.52-1.25 [facility] Comment on above: Performed By: #### C UA2 #### [address] GFR/1.73 sq M predicted among blacks MDRD (S/P/Bld) [Vol rate/Area] mL/min/{1.73_m2} Normal >60 [facility] Comment on above: Performed By: #### C UA2 #### [address] GFR/1.73 sq M predicted among non-blacks MDRD (S/P/Bld) [Vol rate/Area] mL/min/{1.73_m2} Normal >60 [facility] Comment on above: Result Comment: KDIG [...] secretion. Performed By: #### C UA2 #### [facility] [address], [place] Urea nitrogen [Mass/Vol] 5 mg/dL Low 7-20 [facility] Comment on above: Performed By: #### C UA2 #### [facility] [address], [place] Potassium [Moles/Vol] 3.6 mmol/L Normal 3.5-5.1 [facility] Comment on above: Performed By: #### C UA2 #### [facility] [address], [place] Chloride [Moles/Vol] 108 mmol/L High 98-107 [facility] Comment on above: Performed By: #### C UA2 #### [facility] [address], [place] Sodium [Moles/Vol] 139 mmol/L Normal 135-145 [facility] Comment on above: Performed By: #### C UA2 #### [facility] [address], [place] Basic Metabolic Panel w/ Ref hailey to MGon 05-15-2020 Anion gap [Moles/Vol] 6 mmol/L [place], [place] Calcium [Mass/Vol] 8.5 mg/dL 8.4 - 10. 4 mg/dL [place], [place] Chloride [Moles/Vol] 108 mmol/L High 98 - 10 7 mmol/L [place] CO2 [Moles/Vol] 25 mmol/L 22 - 30 mmol/L [place] Creatinine [Mass/Vol] 0.61 mg/dL 0.52 - 1.25 mg/dL [place], [place] EGFR IF NonAfrican Palestinian >90.0 >60 mL/min [place] Comment on above: KDIGO guidelines pro [...] MDRD (S/P/Bld) [Vol rate/Area] mL/min/{1.73_m2} >60 mL/min [place], [place] Glucose [Mass/Vol] 79 mg/dL 70 - 100 mg/dL [place] Interpretation and review of laboratory results Abnormal [place] Potassium [Moles/Vol] 3.6 mmol/L 3.5 - 5.1 mmol/L [place] Sodium [Moles/Vol] 139 mmol/L 135 - 145 mmol/L [place] Urea nitrogen [Mass/Vol] 5 mg/dL Low 7 - 20 mg/dL [place] Test Performed by [facility], [address] [place] [id number] [place], [place] CBCon 05-15-2020 Erythrocyte distribution width (RBC) [Ratio] 13.0 % 11.5 - 14.5 % [place] Hematocrit (Bld) [Volume fraction] 38.4 % 35 - 47 % [place] Hemoglobin (Bld) [Mass/Vol] 12.9 g/dL 11.7 - 16 g/dL [place] MCH (RBC) [Entitic mass] 32.7 pg 26 - 34 pg [place] MCHC (RBC) [Mass/Vol] 33.6 % 32 - 36 % [place] MCV (RBC) [Entitic vol] 97.6 fL 79 - 98 fL [place], [place] Platelet mean volume (Bld) [Entitic vol] 8.7 fL 7.4 - 10.4 fL [place], [place] Platelets (Bld) [#/Vol] 275 10*3/uL 140 - 440 10*3/uL [place] RBC (Bld) [#/Vol] 3.94 10*6/uL 3.8 - 5.2 10*6/uL [place] WBC (Bld) [#/Vol] 5.9 10*3/uL 3.6 - 10.7 10*3/uL [place] Test Performed by [facility], [address] [place] [address] [place], [place] Hemogramon 05-15-2020 Erythrocyte distribution width (RBC) [Ratio] 13.0 % Normal 11.5-14.5 [facility] Comment on above: Performed By: #### C UA2 #### [address] Hematocrit (Bld) [Volume fraction] 38.4 % Normal 35.0-47.0 [facility] Comment on above: Performed By: #### C UA2 #### [address] [place] [address] [place], [place] Hemoglobin (Bld) [Mass/Vol] 12.9 g/dL Normal 11.7-16.0 [facility] Comment on above: Performed By: #### C UA2 #### [address] MCH (RBC) [Entitic mass] 32.7 pg Normal 26.0-34.0 [facility] Comment on above: Performed By: #### C UA2 #### [address] [address] [place], [place] MCHC (RBC) [Mass/Vol] 33.6 % Normal 32.0-36.0 [facility] Comment on above: Performed By: #### C UA2 #### [address] MCV (RBC) [Entitic vol] 97.6 fL Normal 79.0-98.0 [facility] Comment on above: Performed By: #### C UA2 #### [address] Platelet mean volume (Bld) [Entitic vol] 8.7 fL Normal 7.4-10.4 [facility] Comment on above: Performed By: #### C UA2 #### [address] [address] [address], [place] Platelets (Bld) [#/Vol] 275 10*3/uL Normal 140-440 [facility] Comment on above: Performed By: #### C UA2 #### [address] [place] [address] [address], [place] RBC (Bld) [#/Vol] 3.94 10*6/uL Normal 3.80-5.20 [facility] Comment on above: Performed By: #### C UA2 #### [address] [address] [address], [place] WBC (Bld) [#/Vol] 5.9 10*3/uL Normal 3.6-10.7 [facility] Comment on above: Performed By: #### C UA2 #### [place] [address] [address], [place] Basic Metabolic Panelon 09- Calcium [Mass/Vol] 9.0 mg/dL Normal 8.4-10.4 [facility] Comment on above: Performed By: #### H RUPESH BMP3 #### [address] [place] [address] [address], [place] Glucose [Mass/Vol] 132 mg/dL High 70-100 [facility] Comment on above: Performed By: #### H RUPESH BMP3 #### [address] [place] [address] [address], [place] Urea nitrogen [Mass/Vol] 10 mg/dL Normal 7-20 [facility] Comment on above: Performed By: #### H RUPESH BMP3 #### [place] [address] [address], [place] Anion gap [Moles/Vol] 12 Normal [facility] Comment on above: Performed By: #### H RUPESH BMP3 #### [address] [address] [address], [place] CO2 [Moles/Vol] 16 mmol/L Low 22-30 [facility] Comment on above: Performed By: #### H RUPESH BMP3 #### [facility] [address], [place] Creatinine [Mass/Vol] 0.58 mg/dL Normal 0.52-1.25 [facility] Comment on above: Performed By: #### H RUPESH BMP3 #### [facility] [address], [place] GFR/1.73 sq M predicted among blacks MDRD (S/P/Bld) [Vol rate/Area] mL/min/{1.73_m2} Normal >60 [facility] Comment on above: Performed By: #### H RUPESH BMP3 #### [address] [address] [place], [place] GFR/1.73 sq M predicted among non-blacks MDRD (S/P/Bld) [Vol rate/Area] mL/min/{1.73_m2} Normal >60 [facility] Comment on above: Result Comment: KDIG [...] Performed By: #### H RUPESH BMP3 #### [facility] [address], [place] Chloride [Moles/Vol] 109 mmol/L High 98-107 [facility] Comment on above: Performed By: #### H RUPESH BMP3 #### [address] [place] [address] [address], [place] Potassium [Moles/Vol] 4.3 mmol/L Normal 3.5-5.1 [facility] Comment on above: Performed By: #### H FABIANO GODDARD ####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 SIGNATURE: Jen Hernandez RN PATIENT NAME: Ortiz Mason DATE: January 09, 2020 TIME: 1:22 PM PAGER/CONTACT #: [phone] Normal [facility] Glucose Meteron 01-09-2020 Glucose [Mass/Vol] 127 mg/dL High 70-99 [facility] Comment on above: Result Comment: RN N OTIFIED Performed By: #### G LMET #### [facility] [address] [place] [address] NURSING PROGon 01-09-2020 NURSING PROG HNO ID: [id number] Author: Lady (Arun) ARUN Peralta Service: ? Author Type: Registered Nurse Type: Nursing Progress Note Filed: 01/09/2020 4:11 PM Note Text: Nursing Progress Note Patient Name: Ortiz Mason Patient Location: [id number]/[place] [id number] Discharge instructions give to the pt, fallow up appointment explained and medication grape picker information given, wheeled walker scrip given to pt at this time. Pt awaiting wheel chair This note was completed by: Lady Peralta RN Normal [facility] PROGRESSon 01-09-2020 PROGRESS HNO ID: [id number] Author: Theron Worthington Service: Pain Management Author [...] status post gastric pacemaker presented 01/02 from [place] transfer with intractable back pain, urinary retention and severe bilateral lower extremity pain and spasm. Patient is followed by Dr. Robledo in [place] for pain management; last SI joint injection [...] # Pharmacy Refill Daily Dose* Pymt Type ATG JAVA DEVELOPER 11/11/2019 2 11/11/2019 Gabapentin 300 MG Capsule 90.00 30 Eu Pet [id number] [facility] ([facility]057) 0 [place] 09/26/2019 2 09/25/2019 Oxycodone-Acetaminophen 5-325 12.00 3 Al Abby [id number] [facility] (7357) 0 30.00 [place] 09/19/2019 2 09/19/2019 Oxycodone-Acetaminophen 5-325 15.00 3 Do Kol [id number] [facility] (6357) 0 37.50 [place] 08/31/2019 2 08/31/2019 Gabapentin 300 MG Capsule 90.00 30 Ay Bas [id number] [facility] (6457) 0 [place] 07/15/2019 2 07/15/2019 Gabapentin 300 MG Capsule 90.00 30 Ay Bas [id number] [facility] (2657) 0 [place] 06/03/2019 2 05/30/2019 Diazepam 5 MG Tablet 10.00 4 To Le [id number] [facility] (1857) 0 1.25 [place]ME [place] 06/03/2019 2 05/30/2019 Oxycodone-Acetaminophen 5-325 12.00 3 To Le [id number] [facility] (0157) 0 30.00 [place] 06/03/2019 2 06/03/2019 Gabapentin 300 MG Capsule 60.00 20 Je B [id number] [facility] (0671) 0 Medicare Current Facility-Administered Medications Medication Dose [...] tab(s) 6 mg ORAL HS PRN Leandra (Video Production Intern) LAM Mendosa.CAKE TESTER 6 mg at 01/08/202121 - enoxaparin 40 [...] 0340 - sodium chloride 0.65 % 2 [place] (AYR, OCEAN) 2 [place] EACH NOSTRIL PRN Kelly (Res) Ojiaku, DO [...] propionate (FLONASE ALLERGY RELIEF NASAL), Use 1 [place] in the nose twice daily. , Disp: [...] Admitted) 01/03/20 0700 - 01/04/20 0659 Shift 0800-1847 0973-9257 1692-9014 24 Hour Total 5396-7022 6570-9757 6244-1276 24 Hour Total INTAKE Shift Total OUTPUT [...] CTH unremarkable Headache improving; Neurologic status improving DOG RAISER Opiate naive Gabapentin, Flexeril discontinued Decadron 4 mg IV every 6 hours per Neurosurgery Continue Lidoderm patch Valium 5mg IV q6h prn continue Fentanyl 25-50mcg IV q1h prn, we'll discontinue it and transition to oxycodone Follow-up with Dr. Robledo in [place] after discharge Theron Worthington M.D. [facility] PT EDon 01-09-2020 PT ED HNO ID: [id number] Author: Whitney Bonilla (Pharmacist) Service: Pharmacy Author [...] Your Medications These medications were sent to [facility] [address] [place] [address] - [address] [place] [address] - [phone] [place] [address] ? dexamethasone 4 mg tablet ? lidocaine 5 % ? traMADol 50 mg tablet Normal [facility] THERAPY NTon 01-09-2020 THERAPY NT HNO ID: [id number] Author: Cely CerratoOtr/Ruddy Dee Service: Occupational Therapy Author Type: Occupational Therapist Type: Therapy (PT/OT/Speech/Resp) Filed: 01/09/2020 4:02 PM Note Text: OCCUPATIONAL THERAPY MISSED VISIT SERVICE DATE: 01/09/2020 SERVICE TIME: 1559 to 1559 ROOM: [place] [address] Attempted Evaluation. Patient not seen due to [...] January 09, 2020 TIME: 4:00 PM Normal [facility] THERAPY NT HNO ID: [id number] Author: Alona Troy Service: Physical Therapy Author Type: Physical Therapist Type: Therapy (PT/OT/Speech/Resp) Filed: 01/09/2020 1:51 PM Note Text: Physical Therapy Evaluation SERVICE DATE: 01/09/2020 SERVICE TIME: 1315 to 1338 ROOM: [place] [address] Recommended Discharge Disposition: Home Recommended Discharge Equipment: [...] symptoms and signs-other Interventions Provided: Evaluation;Therapeutic Exercise (55717);Gait Training (96234) $ Evaluation-Moderate (75506) Billed Units: 1 unit Therapeutic Exercise (34496) Treatment Minutes: 3 0 units Skilled Intervention(s): Instruction in therapeutic exercise for stretching the left calf when it spasms, educated on use of a belt to pull foot into DF and to use a tennis ball to massage the calf. Both to assist with relieving the pain of cramping. Gait Training (38635) Treatment Minutes: 6 1 unit Skilled Intervention(s): [...] January 09, 2020 TIME: 1:44 PM Normal [facility] Basic Metabolic Panelon 12-22 Anion gap [Moles/Vol] 12 mmol[facility]L [facility] Comment on above: Performed By: #### M AG #### [place] [address] Calcium [Mass/Vol] 8.1 mg/dL Low 8.5-10.2 [facility] Comment on above: Performed By: #### M AG #### [facility] [address] [place], [place] [address] Chloride [Moles/Vol] 103 mmol/L Normal 97-105 [facility] Comment on above: Performed By: #### M AG #### [facility] [address] [place], [place] [address] CO2 Blood 23 mmol/L Normal 22-30 [facility] Comment on above: Performed By: #### M AG #### [facility] [address] [place], [place] [address] Creatinine [Mass/Vol] 0.63 mg/dL Normal 0.58-0.96 [facility] Comment on above: Performed By: #### M AG #### [facility] [address] [place], [place] [address] Glucose [Mass/Vol] 103 mg/dL High 74-99 [facility] Comment on above: Result Comment: The [employer] Diabetes Association (ADA) provides guidance for cutoff [...] Standards of Medical Care in Diabetes 2016; [employer] Association. Diabetes Care. 2016;39(Suppl 1). Performed By: #### M AG #### [facility] [address] [place], [place] [address] Potassium [Moles/Vol] 4.3 mmol/L Normal 3.7-5.1 [facility] Comment on above: Performed By: #### M AG #### [facility] [address] [place], [place] [address] Sodium [Moles/Vol] 138 mmol/L Normal 136-144 [facility] Comment on above: Performed By: #### M AG #### [facility] [address] [place], [place] [address] Urea nitrogen [Mass/Vol] 20 mg/dL Normal 7- [facility] Comment on above: Performed By: #### M AG #### [facility] [address] [place], [place] [address] CT BRAIN WO IVCONon 01-08-[address] BRAIN WO IVCON * * *Final Report* * * DATE OF EXAM: 2020 10:21PM [facility] 0504 - CT BRAIN WO [...] recurrence of cerebral edema compared to 01/05/2020. Belting And Webbing Inspector: PSCB Transcribe Date/Time: 2020 10:22P Dictated by : MIKEL CARDENAS MD This examination was interpreted and the report reviewed and electronically signed by: MIKEL CARDENAS MD on 2020 10:26PM EST Normal [facility] Hemogramon 01-08-2020 Erythrocyte distribution width (RBC) [Ratio] 12.6 % Normal 11.7-14.4 [facility] Comment on above: Performed By: #### M AG #### [facility] [address] [place] [address] Hematocrit (Bld) [Volume fraction] 43.5 % Normal 34.1-44.9 [facility] Comment on above: Performed By: #### M AG #### [facility] [address] [place] [address] Hemoglobin (Bld) [Mass/Vol] 14.2 g/dL Normal 11.2-15.7 [facility] Comment on above: Performed By: #### M AG #### [facility] [address] [place] [address] MCH (RBC) [Entitic mass] 32.1 pg Normal 25.6-32.2 [facility] Comment on above: Performed By: #### M AG #### [facility] [address] [place] [address] MCHC (RBC) [Mass/Vol] 32.6 % Normal 31.6-34.8 [facility] Comment on above: Performed By: #### M AG #### [place] [address] MCV (RBC) [Entitic vol] 98.4 fL High 79.4-94.8 [facility] Comment on above: Performed By: #### M AG #### [facility] [address] [place] [address] Platelet mean volume (Bld) [Entitic vol] 10.7 fL Normal 9.4-12.3 [facility] Comment on above: Performed By: #### M AG #### [facility] [address] [place], [place] [address] Platelets (Bld) [#/Vol] 151 thou/cmm Low 182-369 [facility] Comment on above: Performed By: #### M AG #### [place] [address] RBC (Bld) [#/Vol] 4.42 mil/cmm Normal 3.93-5.22 [facility] Comment on above: Performed By: #### M AG #### [facility] [address] [place], [place] [address] RDW SD 45.3 fl Normal 36.4-46.3 [facility] Comment on above: Performed By: #### M AG #### [facility] [address] [place], [place] [address] WBC (Bld) [#/Vol] 10.78 thou/cmm High 3.98-10.04 [facility] Comment on above: Performed By: #### M AG #### [facility] [address] [place] [id number] MDRD GFRon 01-08-2020 GFR/1.73 sq M predicted among non-blacks MDRD (S/P/Bld) [Vol rate/Area] mL/min/{1.73_m2} Normal >60mL/min/1. 73m2 [facility] Comment on above: Result Comment: If t he patient is , multiply the result by 1.210. Performed By: #### G FR #### [place] [address] NURSING PROGon 01-08-2020 NURSING PROG HNO ID: [id number] Author: Meagan (Rn) ARUN Tang Service: Nursing Author Type: Registered Nurse Type: Nursing Progress Note Filed: 01/08/2020 4:07 PM Note Text: Report called to 8100. Patient aware of transfer [facility] PLAN OF CAREon 01-08-2020 PLAN OF CARE HNO ID: [id number] Author: Michelle Talavera Service: Neurology General Author [...] in office for seizures, migraine hx. Normal [facility] PROGRESSon 01-08-2020 PROGRESS HNO ID: [id number] Author: Melisa Bryant Service: Pain Management Author [...] status post gastric pacemaker presented 01/02 from [place] transfer with intractable back pain, urinary retention and severe bilateral lower extremity pain and spasm. Patient is followed by Dr. Robledo in [place] for pain management; last SI joint injection [...] # Pharmacy Refill Daily Dose* Pymt Type ATG JAVA DEVELOPER 11/11/2019 2 11/11/2019 Gabapentin 300 MG Capsule 90.00 30 Eu Pet [id number] [facility] (7357) 0 [place] 09/26/2019 2 09/25/2019 Oxycodone-Acetaminophen 5-325 12.00 3 Al Abby [id number] [facility] (7357) 0 30.00 [place] 09/19/2019 2 09/19/2019 Oxycodone-Acetaminophen 5-325 15.00 3 Do Kol [id number] [facility] (7357) 0 37.50 [place] 08/31/2019 2 08/31/2019 Gabapentin 300 MG Capsule 90.00 30 Ay Bas [id number] [facility] (7357) 0 [place] 07/15/2019 2 07/15/2019 Gabapentin 300 MG Capsule 90.00 30 Ay Bas [id number] [facility] (7357) 0 [place] 06/03/2019 2 05/30/2019 Diazepam 5 MG Tablet 10.00 4 To Le [id number] [facility] (7357) 0 1.25 LME [place] 06/03/2019 2 05/30/2019 Oxycodone-Acetaminophen 5-325 12.00 3 To Le [id number] [facility] (7357) 0 30.00 [place] 06/03/2019 2 06/03/2019 Gabapentin 300 MG Capsule 60.00 20 Je B [id number] [facility] (7357) 0 Medicare Current Facility-Administered Medications [...] 1255 - sodium chloride 0.65 % 2 [place] (AYR, OCEAN) 2 [place] EACH NOSTRIL PRN Erika R Julio C [...] propionate (FLONASE ALLERGY RELIEF NASAL), Use 1 [place] in the nose twice daily. , Disp: [...] Admitted) 01/03/20 07 - 01/04/20 0659 Shift 3120-2978 2282-9318 5521-9755 24 Hour Total 8300-8815 5483-8524 0844-6406 24 Hour Total INTAKE Shift Total OUTPUT [...] CTH pending Headache improving; Neurologic status improving DOG RAISER Opiate naive Gabapentin, Flexeril discontinued Decadron 4 mg IV every 6 hours per Neurosurgery Continue Lidoderm patch Valium 5mg IV q6h prn continue Fentanyl 25-50mcg IV q1h prn continue Follow-up with Dr. Robledo in [place] after discharge Melisa Bryant MD [facility] PROGRESS HNO ID: [id number] Author: Beverly [place] Service: Neurology ICU Author [...] Is Patient Clinically Ready to Transfer to [facility] or SDU?: No Discharge Planning: To be [...] 0946 -- 01/04/20 0945 pneumatic compression stockings ([place], [place]) 01/03/20 0345 vte non-pharmacologic prophylaxis - none indicated ([place], [place]) VTE Prophylaxis: VTE prophylaxis appropriate Plan of care discussed with: Provider, RN, Patient SIGNATURE: Kelly Robertson DO PATIENT NAME: Ortiz Mason DATE: January 08, 2020 TIME: 2:12 PM PAGER/CONTACT #: [phone] THE NEURO ICU MANAGEMENT OF THIS PATIENT [...] Transfer to floor Please see the documented [id number] plan in the updated problem list. Plan of care discussed with: Provider, RN, Patient. Beverly Vora DO Staff, Neurointensive Care [facility] [place] Date of Service: 01/08/2020 Time of Service: 2:17 PM This is an electronically created document. If printed, please do not remove from the chart or modify printed copy. > 35 min spent at bedside counseling family and discussing plan with consultants as well as bedside management of the patient. Normal [facility] Basic Metabolic Panelon 12-22 Anion gap [Moles/Vol] 10 mmol/L Normal 9-18 [facility] Comment on above: Performed By: #### M AG #### [facility] [address] [place], [place] [address] Calcium [Mass/Vol] 8.3 mg/dL Low 8.5-10.2 [facility] Comment on above: Performed By: #### M AG #### [facility] [address] [place], [place] [address] Chloride [Moles/Vol] 106 mmol/L High 97-105 [facility] Comment on above: Performed By: #### M AG #### [facility] [address] [place], [place] [address] CO2 Blood 28 mmol/L Normal 22-30 [facility] Comment on above: Performed By: #### M AG #### [facility] [address] [place] [address] Creatinine [Mass/Vol] 0.69 mg/dL Normal 0.58-0.96 [facility] Comment on above: Performed By: #### M AG #### [facility] [address] [place] [address] Glucose [Mass/Vol] 97 mg/dL Normal 74-99 [facility] Comment on above: Result Comment: The [employer] Diabetes Association (ADA) provides guidance for cutoff [...] Standards of Medical Care in Diabetes 2016; [employer]. Diabetes Care. 2016;39(Suppl 1). Performed By: #### M AG #### [facility] [address] [place], [place] [address] Potassium [Moles/Vol] 4.5 mmol/L Normal 3.7-5.1 [facility] Comment on above: Performed By: #### M AG #### [facility] [address] [place], [place] [address] Sodium [Moles/Vol] 144 mmol/L Normal 136-144 [facility] Comment on above: Performed By: #### M AG #### [facility] [address] [place], [place] [address] Urea nitrogen [Mass/Vol] 17 mg/dL Normal 7-21 [facility] Comment on above: Performed By: #### M AG #### [facility] [address] [place], [place] [address] Anion gap [Moles/Vol] 11 mmol/L Normal 9-18 [facility] Comment on above: Performed By: #### M AG #### [facility] [address] [place], [place] [address] Calcium [Mass/Vol] 8.3 mg/dL Low 8.5-10.2 [facility] Comment on above: Performed By: #### M AG #### [facility] [address] [place] [address] Chloride [Moles/Vol] 105 mmol/L Normal 97-105 [facility] Comment on above: Performed By: #### M AG #### [facility] [address] [place] [address] CO2 Blood 27 mmol/L Normal 22-30 [facility] Comment on above: Performed By: #### M AG #### [facility] [address] [place], [place] [address] Creatinine [Mass/Vol] 0.69 mg/dL Normal 0.58-0.96 [facility] Comment on above: Performed By: #### M AG #### [facility] [address] [place] [address] Glucose [Mass/Vol] 99 mg/dL Normal 74-99 [facility] Comment on above: Result Comment: The [employer] Diabetes Association (ADA) provides guidance for cutoff [...] Standards of Medical Care in Diabetes 2016; [employer] Diabetes Association. Diabetes Care. 2016;39(Suppl 1). Performed By: #### M AG #### [facility] [address] [place], [place] [address] Potassium [Moles/Vol] 4.5 mmol/L Normal 3.7-5.1 [facility] Comment on above: Performed By: #### M AG #### [facility] [address] [place], [place] [address] Sodium [Moles/Vol] 143 mmol/L Normal 136-144 [facility] Comment on above: Performed By: #### M AG #### [facility] [address] [place], [place] [address] Urea nitrogen [Mass/Vol] 15 mg/dL Normal 7-21 [facility] Comment on above: Performed By: #### M AG #### [facility] [address] [place], [place] [address] Magnesium Bloodon 2020 Magnesium [Mass/Vol] 2.5 mg/dL High 1.7-2.3 [facility] Comment on above: Performed By: #### M AG #### [facility] [address] [place], [place] [address] Osmolality Serumon 0 Osmolality [Osmolality] 302 mOsm/kg High 276-298 [facility] Comment on above: Performed By: #### M AG #### [address] [address] Osmolality [Osmolality] 298 mOsm/kg Normal 276-298 [facility] Comment on above: Performed By: #### M AG #### [facility] [address] [place], [place] [address] PROGRESSon 2020 PROGRESS HNO ID: [id number] Author: Melisa Bryant Service: Pain Management Author [...] status post gastric pacemaker presented 01/02 from [place] transfer with intractable back pain, urinary retention and severe bilateral lower extremity pain and spasm. Patient is followed by Dr. Robledo in [place] for pain management; last SI joint injection [...] # Pharmacy Refill Daily Dose* Pymt Type ATG JAVA DEVELOPER 11/11/2019 2 11/11/2019 Gabapentin 300 MG Capsule 90.00 30 Eu Pet [id number] [facility] (7357) 0 [place] 09/26/2019 2 09/25/2019 Oxycodone-Acetaminophen 5-325 12.00 3 Al Abby [id number] [facility] (7357) 0 30.00 [place]ME [place] 09/19/2019 2 09/19/2019 Oxycodone-Acetaminophen 5-325 15.00 3 Do Kol [id number] Wal (7357) 0 37.50 [place]ME [place] 08/31/2019 2 08/31/2019 Gabapentin 300 MG Capsule 90.00 30 Ay Bas [id number] [facility] (7357) 0 [place] 07/15/2019 2 07/15/2019 Gabapentin 300 MG Capsule 90.00 30 Ay Bas [id number] [facility] (7357) 0 [place] 06/03/2019 2 05/30/2019 Diazepam 5 MG Tablet 10.00 4 To Le [id number] [facility] (7357) 0 1.25 LME [place] 06/03/2019 2 05/30/2019 Oxycodone-Acetaminophen 5-325 12.00 3 To Le [id number] [facility] (7357) 0 30.00 [place]ME [place] 06/03/2019 2 06/03/2019 Gabapentin 300 MG Capsule 60.00 20 Je B [id number] Wal (7357) 0 Medicare Current Facility-Administered Medications Medication Dose Route Frequency Provider Last Rate Last Dose - enoxaparin 40 mg injection (LOVENOX) 40 mg SUBCUTANEOUS q 24 HR Michelle Ilan 40 mg at 01/07/20 1304 - bisacodyl 10 mg suppository (DULCOLAX) 10 mg RECTAL ONCE Mickie (Video Production Intern) Herraiz - prochlorperazine 10 mg injection (COMPAZINE) [...] 1150 - sodium chloride 0.65 % 2 [place] (AYR, OCEAN) 2 [place] EACH NOSTRIL PRN Erika R Julio C - NaCl 0.9% 3-5 mL 3-5 mL INTRAVENOUS q 12 H Erika R Julioc 5 mL at 01/07/20 0758 - dexamethasone [...] propionate (FLONASE ALLERGY RELIEF NASAL), Use 1 [place] in the nose twice daily. , Disp: [...] 06(Not Admitted) 01/03/206[address] - 01/04/20 0659 Shift 6883-3276 6451-6511 2063-2093 24 Hour Total 9098-2852 5037-1130 9586-2324 24 Hour Total INTAKE Shift Total OUTPUT [...] CTH pending Headache improving; Neurologic status improving DOG RAISER Opiate naive Gabapentin, Flexeril discontinued Decadron 4 mg IV every 6 hours per Neurosurgery Continue Lidoderm patch Valium 5mg IV q6h prn continue Fentanyl 25-50mcg IV q1h prn continue Follow-up with Dr. Robledo in [place] after discharge Melisa Bryant MD [facility] PROGRESS HNO ID: [id number] Author: Beverly V[place] Service: Neurology ICU Author [...] Is Patient Clinically Ready to Transfer to [facility] or SDU?: No Discharge Planning: To be [...] 0946 -- 01/04/20 0945 pneumatic compression stockings ([place]) 01/03/20 0345 vte non-pharmacologic prophylaxis - none indicated ([place]) VTE Prophylaxis: VTE prophylaxis appropriate Plan of care discussed with: ICU Team and RN SIGNATURE: Michelle Talavera APRN.CAKE TESTER PATIENT NAME: Ortiz Mason DATE: 2020 TIME: 12:17 PM PAGER/CONTACT #: [phone] 35 minutes of CCT Attending Note I have personally performed a face to face assessment of the patient and have reviewed the PA/ELEVATOR CONDUCTOR note. The patient currently has the following [...] DO Date: 2020 Time: 12:23 PM Normal [facility] PROGRESS HNO ID: [id number] Author: Mickie Irvin) Alvaro Service: Neurosurgery Author [...] H - sodium chloride 0.65 % 2 [place] (AYR, OCEAN) 2 [place] EACH NOSTRIL PRN - perflutren lipid microspheres [...] 0946 -- 01/04/20 0945 pneumatic compression stockings ([place], [place]) 01/03/20 0345 vte non-pharmacologic prophylaxis - none indicated ([place], [place]) VTE Prophylaxis: VTE prophylaxis appropriate SIGNATURE: Mickie John APRN.CNP PATIENT NAME: Ortiz Mason DATE: 2020 TIME: 10:30 AM PAGER/CONTACT #: [phone] Normal [facility] Phosphorous Bloodon 01-07-20 20 Phosphate [Mass/Vol] 3.8 mg/dL Normal 2.7-4.8 [facility] Comment on above: Performed By: #### M AG #### [place] [address] THERAPY NTon 2020 THERAPY NT HNO ID: [id number] Author: Lady (Ccc-Foot Orthopedist) Luke, CCC/ASSEMBLY LINE SUPERVISOR Service: Speech/Swallow Author Type: Speech Language Pathologist Type: Therapy (PT/OT/Speech/Resp) Filed: 2020 1:43 PM Note Text: Speech Therapy Clinical Swallow Evaluation SERVICE DATE: 2020 SERVICE TIME: 1322 to 1334 ROOM: [id number] Nursing Recommendations: See swallow guide posted in [...] Full Session -Patient asleep in bed on ASSEMBLY LINE SUPERVISOR arrival, woke easily agreeable to evaluation -Patient [...] oral phase Interventions Provided: Clinical Swallow Evaluation (65537) $ Clinical Swallow Evaluation (70677) Billed Units: 1 unit Total Treatment Time (minutes): 12 SUBJECTIVE: Current Hospital Course: Chart reviewed; Reason for admission: 49yo F with a pertinent history of cauda equina syndrome 3 years ago for which she got decompression surgery, epilepsy, and brain aneurysm s/p coiling in the past, migraines, gastroparesis with pacer, and fibromyalgia presented to [place] ER for the above CC. Please see [place] documents on the chart, I have updated [...] was found to have 420cc retention at [place] therefore a tucker was placed. Her legs [...] for this therapy evaluation/treatment. SIGNATURE: Lady Heath CCC-ASSEMBLY LINE SUPERVISOR PATIENT NAME: Ortiz Mason DATE: 2020 TIME: 1:39 PM Normal [facility] Activated PTTon 01-06-2020 aPTT Coag (Bld) [Time] 22.4 s Low 23.0-32.4 [facility] Comment on above: Result Comment: Unfr actionated [...] laboratory APTT reagent in use throughout the [facility]. Performed By: #### U RIN2 #### [facility] [address] [place] [address] Basic Metabolic Panelon 05- Anion gap [Moles/Vol] 10 mmol/L Normal 9-18 [facility] Comment on above: Performed By: #### G FR #### [facility] [address] [place] [address] Anion gap [Moles/Vol] 12 mmol/L Normal 9-18 [facility] Comment on above: Performed By: #### U RIN2 #### [facility] [address] [place] [address] Calcium [Mass/Vol] 8.1 mg/dL Low 8.5-10.2 [facility] Comment on above: Performed By: #### U RIN2 #### [facility] [address] [place] [address] Calcium [Mass/Vol] 8.2 mg/dL Low 8.5-10.2 [facility] Comment on above: Performed By: #### U RIN2 #### [place] [address] Calcium [Mass/Vol] 7.9 mg/dL Low 8.5-10.2 [facility] Comment on above: Performed By: #### G FR #### [facility] [address] [address] Chloride [Moles/Vol] 104 mmol/L Normal 97-105 [facility] Comment on above: Performed By: #### U RIN2 #### [facility] [address] [address] Performed By: #### G FR #### [place] [address] CO2 Blood 26 mmol/L Normal 22-30 [facility] Comment on above: Performed By: #### G FR #### [address] [address] Performed By: #### U RIN2 #### [facility] [address] [place] [address] CO2 Blood 27 mmol/L Normal 22-30 [facility] Comment on above: Performed By: #### U RIN2 #### [facility] [address] [place] [address] Creatinine [Mass/Vol] 0.66 mg/dL Normal 0.58-0.96 [facility] Comment on above: Performed By: #### U RIN2 #### [facility] [address] [place] [address] Creatinine [Mass/Vol] 0.68 mg/dL Normal 0.58-0.96 [facility] Comment on above: Performed By: #### U RIN2 #### [facility] [address] [address] Creatinine [Mass/Vol] 0.71 mg/dL Normal 0.58-0.96 [facility] Comment on above: Performed By: #### G FR #### [place] [address] Glucose [Mass/Vol] 91 mg/dL Normal 74-99 [facility] Comment on above: Result Comment: The [employer] Diabetes [employer] (ADA) provides guidance for cutoff [...] Standards of Medical Care in Diabetes 2016; [employer]. Diabetes Care. 2016;39(Suppl 1). Performed By: #### U RIN2 #### [place] [address] Glucose [Mass/Vol] 95 mg/dL Normal 74-99 [facility] Comment on above: Result Comment: The [employer] Diabetes [employer] (ADA) provides guidance for cutoff [...] Standards of Medical Care in Diabetes 2016; [employer]. Diabetes Care. 2016;39(Suppl 1). Performed By: #### U RIN2 #### [place] [address] Glucose [Mass/Vol] 105 mg/dL High 74-99 [facility] Comment on above: Result Comment: The [employer] Diabetes Association (ADA) provides guidance for cutoff [...] Standards of Medical Care in Diabetes 2016; [employer]. Diabetes Care. 2016;39(Suppl 1). Performed By: #### G FR #### [place] [address] Potassium [Moles/Vol] 4.4 mmol/L Normal 3.7-5.1 [facility] Comment on above: Performed By: #### U RIN2 #### [place] [address] Performed By: #### G FR #### [place] [address] Potassium [Moles/Vol] 4.1 mmol/L Normal 3.7-5.1 [facility] Comment on above: Performed By: #### U RIN2 #### [facility] [address] [place], [place] [address] Sodium [Moles/Vol] 143 mmol/L Normal 136-144 [facility] Comment on above: Performed By: #### U RIN2 #### [facility] [address] [place], [place] [address] Sodium [Moles/Vol] 140 mmol/L Normal 136-144 [facility] Comment on above: Performed By: #### G FR #### [facility] [address] [place], [place] [address] Sodium [Moles/Vol] 142 mmol/L Normal 136-144 [facility] Comment on above: Performed By: #### U RIN2 #### [facility] [address] [place] [address] Urea nitrogen [Mass/Vol] 15 mg/dL Normal 7-21 [facility] Comment on above: Performed By: #### G FR #### [facility] [address] [place] [address] Urea nitrogen [Mass/Vol] 13 mg/dL Normal 7-21 [facility] Comment on above: Performed By: #### U RIN2 #### [facility] [address] [place] [address] CASE MANAGEMon 01-06-2020 CASE MANAGEM HNO ID: [id number] Author: Olga Esposito Service: Care Management Author Type: ? Type: Care Mgt Progress Note Filed: 01/06/2020 3:04 PM Note Text: CARE MANAGEMENT PROGRESS NOTE SERVICE DATE: 01/06/2020 SERVICE TIME: 0900 LOS: 3 days IMM Follow Up Copy Given: Yes(verbal reminder) Copy given to:: Patient Method: By Phone(Orthobondid protocol) SIGNATURE: Olga Esposito PATIENT NAME: Ortiz Mason DATE: January 06, 2020 TIME: 3:04 PM PAGER/CONTACT #: [phone] Normal [facility] CT BRAIN WO IVCONon 01-06-[address] BRAIN WO IVCON * * *Final Report* * * DATE OF EXAM: Jan 06 2020 6:11PM [facility] 0504 - CT BRAIN WO [...] of cerebral edema compared to yesterday's exam. Belting And Webbing Inspector: BINTA Transcribe Date/Time: Jan 06 2020 6:15P Dictated by : CLEM OSBORNE MD This examination was interpreted and the report reviewed and electronically signed by: CLEM OSBORNE MD on Jan 06 2020 6:19PM EST Normal [facility] Cult and Smr Respiratoryon 0 01-06-2020 Cult and Smr Respiratory Test performed at [facility] Normal oropharyngeal bobo present. Many Gram positive cocci Few Gram positive bacilli Few Polymorphonuclear leukocytes Rare Squamous epithelial cells Normal [facility] Comment on above: Performed By: #### U RIN2 #### [place] [id number] Hemogram/Diffon 01-06-2020 Abs Immature Grans 0.11 thou/cmm High 0.00-0.05 [facility] Comment on above: Performed By: #### G FR #### [place] [id number] Abs Neut (ANC) 9.43 thou/cmm High 1.56-6.13 [facility] Comment on above: Performed By: #### G FR #### [facility] [address] [place] [address] Abs. Baso 0.01 thou/cmm Normal 0.01-0.08 [facility] Comment on above: Performed By: #### G FR #### [facility] [address] [place] [address] Abs. [place] 0.66 thou/cmm Normal 0.27-0.70 [facility] Comment on above: Performed By: #### G FR #### [place] [address] Basophils/100 WBC (Bld) 0.1 % Normal [facility] Comment on above: Performed By: #### G FR #### [place] [address] Eosinophils (Bld) [#/Vol] 0.00 thou/cmm Normal 0.00-0.31 [facility] Comment on above: Performed By: #### G FR #### [place] [address] Eosinophils/100 WBC (Bld) 0.0 % Normal [facility] Comment on above: Performed By: #### G FR #### [place] [address] Erythrocyte distribution width (RBC) [Ratio] 13.2 % Normal 11.7-14.4 [facility] Comment on above: Performed By: #### G FR #### [facility] [address] [address] Hematocrit (Bld) [Volume fraction] 40.6 % Normal 34.1-44.9 [facility] Comment on above: Performed By: #### G FR #### [place] [address] Hemoglobin (Bld) [Mass/Vol] 13.1 g/dL Normal 11.2-15.7 [facility] Comment on above: Performed By: #### G FR #### [facility] [address] [address] Immature Grans 1.00 % Normal [facility] Comment on above: Performed By: #### G FR #### [facility] [address] [place] [address] Lymphocytes (Bld) [#/Vol] 1.15 thou/cmm Low 1.18-3.74 [facility] Comment on above: Performed By: #### G FR #### [facility] [address] [place] [address] Lymphocytes/100 WBC (Bld) 10.1 % Normal [facility] Comment on above: Performed By: #### G FR #### [facility] [address] [place] [address] MCH (RBC) [Entitic mass] 32.3 pg High 25.6-32.2 [facility] Comment on above: Performed By: #### G FR #### [facility] [address] [place] [address] MCHC (RBC) [Mass/Vol] 32.3 % Normal 31.6-34.8 [facility] Comment on above: Performed By: #### G FR #### [facility] [address] [place] [address] MCV (RBC) [Entitic vol] 100.2 fL High 79.4-94.8 [facility] Comment on above: Performed By: #### G FR #### [facility] [address] [place] [address] Monocytes/100 WBC (Bld) 5.8 % Normal [facility] Comment on above: Performed By: #### G FR #### [facility] [address] [place] [address] Platelet mean volume (Bld) [Entitic vol] 9.8 fL Normal 9.4-12.3 [facility] Comment on above: Performed By: #### G FR #### [place] [address] Platelets (Bld) [#/Vol] 257 thou/cmm Normal 182-369 [facility] Comment on above: Performed By: #### G FR #### [facility] [address] [place] [address] RBC (Bld) [#/Vol] 4.05 mil/cmm Normal 3.93-5.22 [facility] Comment on above: Performed By: #### G FR #### [facility] [address] [place] [address] RDW SD 49.1 fl High 36.4-46.3 [facility] Comment on above: Performed By: #### G FR #### [facility] [address] [address] Seg Neutrophil 83.0 % Normal [facility] Comment on above: Performed By: #### G FR #### [facility] [address] [place] [address] WBC (Bld) [#/Vol] 11.36 thou/cmm High 3.98-10.04 [facility] Comment on above: Performed By: #### G FR #### [facility] [address] [place] [address] Hepatic Function Panelon Albumin [Mass/Vol] 3.4 g/dL Low 3.9-4.9 [facility] Comment on above: Performed By: #### G FR #### [facility] [address] [place] [address] ALP [Catalytic activity/Vol] 102 U/L Normal 34-123 [facility] Comment on above: Performed By: #### G FR #### [facility] [address] [address] ALT [Catalytic activity/Vol] 23 U/L Normal 7-38 [facility] Comment on above: Performed By: #### G FR #### [facility] [address] [place] [address] AST [Catalytic activity/Vol] 19 U/L Normal 13-35 [facility] Comment on above: Performed By: #### G FR #### [facility] [address] [place] [address] Bilirubin [Mass/Vol] mg/dL Normal 0.0-0.2 [facility] Comment on above: Performed By: #### G FR #### [facility] [address] [place], [place] [address] Bilirubin [Mass/Vol] 0.2 mg/dL Normal 0.2-1.3 [facility] Comment on above: Performed By: #### G FR #### [facility] [address] [place], [place] [address] Protein [Mass/Vol] 5.4 g/dL Low 6.3-8.0 [facility] Comment on above: Performed By: #### G FR #### [facility] [address] [place], [place] [address] IR BLOOD PATCH INJon 020 IR BLOOD [...] injection for pain management of spinal headache. Belting And Webbing Inspector: BINTA Transcribe Date/Time: Jan 06 2020 4:05P Dictated by : ERIKA BUNCH MD This examination was interpreted and the report reviewed and electronically signed by: ERIKA BUNCH MD on Jan 06 2020 4:07PM EST Normal [facility] Lipid Profile, Basicon 01-05 Cholesterol [Mass/Vol] 158 mg/dL Normal 0-199 [facility] Comment on above: Result Comment: Tota l Cholesterol < 200 mg/dL, Desirable Total Cholesterol 200 to 239 mg/dL, Borderline high Total Cholesterol > 239 mg/dL, High Performed By: #### U RIN2 #### [address] [address] Cholesterol in HDL [Mass/Vol] 52 mg/dL Normal [facility] Comment on above: Result Comment: Refe rence Range: HDL Cholesterol 40- 59 mg/dL, Acceptable HDL Cholesterol >59 mg/dL, High; Negative risk factor for coronary heart disease HDL Cholesterol <40 mg/dL, Low; Positive risk factor for coronary heart disease Performed By: #### U RIN2 #### [address] [address] Cholesterol in LDL [Mass/Vol] 88 mg/dL Normal 0-99 [facility] Comment on above: Result Comment: LDL Cholesterol < 100 mg/dL, Optimal LDL Cholesterol 100 to 129 mg/dL, Near optimal/above optimal LDL Cholesterol 130 to 159 mg/dL, Borderline high LDL Cholesterol 160 to 189 mg/dL, High LDL Cholesterol > 189 mg/dL, Very high Secondary prevention optimal LDL Cholesterol levels are recommended to be < 70 mg/dL Performed By: #### U RIN2 #### [address] [address] Cholesterol in LDL/Cholesterol in HDL [Mass ratio] 1.69 Normal 0.00-2.53 [facility] Comment on above: Performed By: #### U RIN2 #### [address] [address] Cholesterol.total/Aida sterol in HDL [Mass ratio] 3.04 {ratio} Normal 0.00-5.09 [facility] Comment on above: Performed By: #### U RIN2 #### [address] [address] Non-HDL Cholesterol 106 mg/dL Normal 0-129 [facility] Comment on above: Result Comment: Non [...] mg/dL Performed By: #### U RIN2 #### [place] [address] Triglyceride Blood 91 mg/dL Normal 0-149 [facility] Comment on above: Result Comment: Trig lycerides < 150 mg/dL, Normal Triglycerides 150 to 199 mg/dL, Borderline high Triglycerides 200 to 499 mg/dL, High Triglycerides > 499 mg/dL, Very high Performed By: #### U RIN2 #### [place] [address] VLDL Cholesterol 18 mg/dL Normal 0-29 [facility] Comment on above: Performed By: #### U RIN2 #### [place] [address] Magnesium Bloodon 01-06-2020 Magnesium [Mass/Vol] 2.2 mg/dL Normal 1.7-2.3 [facility] Comment on above: Performed By: #### G FR #### [place] [address] Osmolality Serumon 0 Osmolality [Osmolality] 298 mOsm/kg Normal 276-298 [facility] Comment on above: Performed By: #### U RIN2 #### [place] [address] Osmolality [Osmolality] 298 mOsm/kg Normal 276-298 [facility] Comment on above: Performed By: #### U RIN2 #### [place] [address] Osmolality [Osmolality] 303 mOsm/kg High 276-298 [facility] Comment on above: Performed By: #### G FR #### [place] [address] PLAN OF CAREon 01-06-2020 PLAN OF CARE HNO ID: [id number] Author: Halle Arredondo Service: Neurology ICU Author [...] Pt preparing to go for CTH. Normal [facility] PLAN OF CARE HNO ID: [id number] Author: Michelle Talavera Service: Neurology ICU Author Type: Nurse Practitioner Type: Plan of Care Filed: 01/06/2020 6:13 AM Note Text: Repeat caffeine infusion over 2 hours (second dose) due to ongoing symptoms. Normal [facility] PROGRESSon 01-06-2020 PROGRESS HNO ID: [id number] Author: Janeth Valderrama Service: Pain Management Author [...] status post gastric pacemaker presented 01/02 from [place] transfer with intractable back pain, urinary retention and severe bilateral lower extremity pain and spasm. Patient is followed by Dr. Robledo in [place] for pain management; last SI joint injection [...] # Pharmacy Refill Daily Dose* Pymt Type ATG JAVA DEVELOPER 11/11/2019 2 11/11/2019 Gabapentin 300 MG Capsule 90.00 30 Eu Pet [id number] [facility] ([id number] 0 [place] 09/26/2019 2 09/25/2019 Oxycodone-Acetaminophen 5-325 12.00 3 Al Abyb [id number] [facility] ([id number]) 0 30.00 [place] 09/19/2019 2 09/19/2019 Oxycodone-Acetaminophen 5-325 15.00 3 Do Kol [id number] [facility] (7357) 0 37.50 [place] 08/31/2019 2 08/31/2019 Gabapentin 300 MG Capsule 90.00 30 Ay Bas [id number] [facility] (8957) 0 [place] 07/15/2019 2 07/15/2019 Gabapentin 300 MG Capsule 90.00 30 Ay Bas [id number] [facility] (7557) 0 [place] 06/03/2019 2 05/30/2019 Diazepam 5 MG Tablet 10.00 4 To Le [id number] [facility] (4257) 0 1.25 LME [place] 06/03/2019 2 05/30/2019 Oxycodone-Acetaminophen 5-325 12.00 3 To Le [id number] [facility] (8157) 0 30.00 [place] 06/03/2019 2 06/03/2019 Gabapentin 300 MG Capsule 60.00 20 Je B [id number] [facility] (1957) 0 Medicare Current Facility-Administered Medications Medication Dose [...] mcg INTRAVENOUS q 1 H PRN Halle (Video Production Intern) Staudt 50 mcg at 01/06/20 0855 - sodium chloride 0.65 % 2 [place] (AYR, OCEAN) 2 [place] EACH NOSTRIL PRN Allyssa (Pa) Samson - [...] propionate (FLONASE ALLERGY RELIEF NASAL), Use 1 [place] in the nose twice daily. , Disp: [...] 0659(Not Admitted) 01/03/206[address] - 01/04/20 0659 Shift 4239-7950 5446-4368 6289-9613 24 Hour Total 5685-2847 4838-1946 7610-9201 24 Hour Total INTAKE Shift Total OUTPUT [...] LOAIZA with some nausea. 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 Robledo in [place] after discharge Janeth Valderrama MD [facility] PROGRESS HNO ID: [id number] Author: Sonia Ferreira (Lilian) LILIAN Barros Service: Neurosurgery Author Type: Physician Engineer Exhauster Type: Progress Notes Filed: 01/06/2020 10:24 AM [...] - 01/06/20 0601/06/20699 - 01/07/20 0659 Shift 5064-2452 4741-5608 4122-4109 24 Hour Total 0394-9476 8448-7612 6672-4039 24 Hour Total INTAKE IV 3125 1220 4345 Volume (mL) (sodium chloride iv bolus 3% (HYPERTONIC)) 300 300 Volume (mL) (NaCl 0.9% 1,000 mL iv bolus) 1000 1000 Volume (mL) (sodium chloride-sodium acetate (50:50) iv infusion 3% (HYPERTONIC)) 739 860 2197 Volume (mL) (mannitol 20% 100 g infusion [...] PRN - sodium chloride 0.65 % 2 [place] (AYR, OCEAN) 2 [place] EACH NOSTRIL PRN - NaCl 0.9% 3-5 [...] January 06, 2020 TIME: 10:12 AM Pager: [phone] [facility] PROGRESS HNO ID: [id number] Author: Beverly Vora Service: Neurology ICU Author [...] Is Patient Clinically Ready to Transfer to [facility] or SDU?: No Discharge Planning: To be [...] RN and Dr Vora SIGNATURE: Michelle Talavera APRN.CAKE TESTER PATIENT NAME: Ortiz Mason DATE: January 06, 2020 TIME: 6:05 AM PAGER/CONTACT #: [phone] 45 minutes of CCT Attending Note I have personally performed a face to face assessment of the patient and have reviewed the PA/ELEVATOR CONDUCTOR note. The patient currently has the following [...] Vora, Date: 01/06/2020 Time: 4:13 PM Normal [facility] Phosphorous Bloodon 01-06-20 20 Phosphate [Mass/Vol] 3.8 mg/dL Normal 2.7-4.8 [facility] Comment on above: Performed By: #### G FR #### [place] [address] Protimeon 01-06-2020 INR Coag (PPP) [Relative time] 0.95 {INR} Normal 0.90-1.30 [facility] Comment on above: Result Comment: Isaura min K Antagonist (VKA) Therapeutic Range: INR 2 to 3 (Target INR of 2.5) Note: For patients treated with VKA drugs, such as warfarin, the [place] [employer] 2012 Guideline recommends [...] [phone] Performed By: #### U RIN2 #### [facility] [address] [place], [place] [address] PT Coag (PPP) [Time] 10.3 s Normal 9.7-13.0 [facility] Comment on above: Performed By: #### U RIN2 #### [facility] [address] [place] [id number] THERAPY NTon 01-06-2020 THERAPY NT HNO ID: [id number] Author: Kristen CerratoCcc-Foot OrthopedistBasilia Thomas CCC/PHILIPPE Service: Speech/Swallow Author Type: Speech Language Pathologist Type: Therapy (PT/OT/Speech/Resp) Filed: 01/06/2020 10:18 AM Note Text: SPEECH THERAPY MISSED VISIT SERVICE DATE: 01/06/2020 SERVICE TIME: 1017 to 1017 ROOM: [place] [address] Attempted Clinical Swallow Evaluation. Patient not seen [...] January 06, 2020 TIME: 10:17 AM Normal [facility] THERAPY NT HNO ID: [id number] Author: Elicia Alcantar/Ruddy Rainey Service: Occupational Therapy Author Type: Occupational Therapist Type: Therapy (PT/OT/Speech/Resp) Filed: 01/06/2020 4:18 PM Note Text: OCCUPATIONAL THERAPY MISSED VISIT SERVICE DATE: 01/06/2020 SERVICE TIME: 1005 to 1005 ROOM: [place] [address] Attempted Evaluation. Patient not seen due to Illness(per RN, unable to tolerate sitting up at this time due to brain swelling ). SIGNATURE: ENEDELIA Funk/Adam PATIENT NAME: Ortiz Mason DATE: January 06, 2020 TIME: 10:06 AM [facility] ALLIED HEALTHon 01-05-2020 ALLIED HEALTH HNO ID: [id number] Author: Ha (Student) Celso Yu Service: Spiritual Care Author Type: Student Type: Allied Health Filed: 01/05/2020 1:36 PM Note Text: SPIRITUALCARE Spiritual Care Visit- Brief Note Name: Ortiz Mason Date: January 05, 2020 Notes: Called room and spoke with patient. Prayed with patient. Spiritual care team is available as needed and discussed with patient how to contact us. Hospital Carrier Signature: Ha Yu To contact the Spiritual Care Department: Please call [phone] or Page the On-Call Hospital Carrier at pager [phone] Thank you for the opportunity to be of service. This is an electronically created document. IF PRINTED, PLEASE DO NOT REMOVE FROM THE CHART OR MODIFY PRINTED COPY. Normal [facility] ALLIED HEALTH HNO ID: [id number] Author: Augustine (Rt) Vadim Escoto Service: Radiology Author Type: Anthropology Professor Type: Allied Health Filed: 01/05/2020 6:44 AM Note Text: Pt has non compatible gastric pacer per RN. MRI cancelled. Normal [facility] HNO ID: [id number] Author: Augustine Gonzales) Vadim Escoto Service: Radiology Author Type: Anthropology Professor Type: [facility] Filed: 01/05/2020 6:41 AM Note Text: Called for MRI screening form. Normal [facility] Basic Metabolic Panelon 12-22 Anion gap [Moles/Vol] 9 mmol/L Normal 9-18 [facility] Comment on above: Performed By: #### G FR #### [address] [address] Calcium [Mass/Vol] 7.8 mg/dL Low 8.5-10.2 [facility] Comment on above: Performed By: #### G FR #### [address] [address] Chloride [Moles/Vol] 111 mmol/L High 97-105 [facility] Comment on above: Performed By: #### G FR #### [facility] [address] [place], [place] [address] CO2 Blood 25 mmol/L Normal 22-30 [facility] Comment on above: Performed By: #### G FR #### [facility] [address] [place], [place] [address] Creatinine [Mass/Vol] 0.84 mg/dL Normal 0.58-0.96 [facility] Comment on above: Performed By: #### G FR #### [facility] [address] [place], [place] [address] Glucose [Mass/Vol] 105 mg/dL High 74-99 [facility] Comment on above: Result Comment: The [employer] (ADA) provides guidance for cutoff [...] Standards of Medical Care in Diabetes 2016; [employer]. Diabetes Care. 2016;39(Suppl 1). Performed By: #### G FR #### [facility] [address] [place], [place] [address] Potassium [Moles/Vol] 4.2 mmol/L Normal 3.7-5.1 [facility] Comment on above: Performed By: #### G FR #### [facility] [address] [place], [place] [address] Sodium [Moles/Vol] 145 mmol/L High 136-144 [facility] Comment on above: Performed By: #### G FR #### [facility] [address] [place], [place] [address] Urea nitrogen [Mass/Vol] 17 mg/dL Normal 7-21 [facility] Comment on above: Performed By: #### G FR #### [facility] [address] [place], [place] [address] Anion gap [Moles/Vol] 11 mmol/L Normal 9-18 [facility] Comment on above: Performed By: #### C MP #### [facility] [address] [place], [place] [address] Calcium [Mass/Vol] 8.0 mg/dL Low 8.5-10.2 [facility] Comment on above: Performed By: #### C MP #### [facility] [address] [place], [place] [address] Chloride [Moles/Vol] 95 mmol/L Low 97-105 [facility] Comment on above: Performed By: #### C MP #### [facility] [address] [place], [place] [address] CO2 Blood 24 mmol/L Normal 22-30 [facility] Comment on above: Performed By: #### C MP #### [facility] [address] [place], [place] [address] Creatinine [Mass/Vol] 0.79 mg/dL Normal 0.58-0.96 [facility] Comment on above: Performed By: #### C MP #### [facility] [address] [place], [place] [address] Glucose [Mass/Vol] 103 mg/dL High 74-99 [facility] [facility] Comment on above: Result Comment: The [employer] (ADA) provides guidance for cutoff [...] Standards of Medical Care in Diabetes 2016; [employer]. Diabetes Care. 2016;39(Suppl 1). Performed By: #### C MP #### [facility] [address] [place], [place] [address] Potassium [Moles/Vol] 4.7 mmol/L Normal 3.7-5.1 [facility] Comment on above: Performed By: #### C MP #### [facility] [address] [place], [place] [address] Sodium [Moles/Vol] 130 mmol/L Low 136-144 [facility] Comment on above: Performed By: #### C MP #### [facility] [address] [place], [place] [address] Urea nitrogen [Mass/Vol] 18 mg/dL Normal 7-21 [facility] Comment on above: Performed By: #### C MP #### [facility] [address] [place], [place] [address] Anion gap [Moles/Vol] 11 mmol/L Normal 9-18 [facility] Comment on above: Performed By: #### C BC1 #### [facility] [address] [place], [place] [address] Calcium [Mass/Vol] 9.1 mg/dL Normal 8.5-10.2 [facility] Comment on above: Performed By: #### C BC1 #### [facility] [address] [place], [place] [address] Chloride [Moles/Vol] 102 mmol/L Normal 97-105 [facility] Comment on above: Performed By: #### C BC1 #### [facility] [address] [place], [place] [address] CO2 Blood 25 mmol/L Normal 22-30 [facility] Comment on above: Performed By: #### C BC1 #### [facility] [address] [place], [place] [address] Creatinine [Mass/Vol] 0.62 mg/dL Normal 0.58-0.96 [facility] Comment on above: Performed By: #### C BC1 #### [facility] [address] [place], [place] [address] Glucose [Mass/Vol] 154 mg/dL High 74-99 [facility] Comment on above: Result Comment: The [employer] Diabetes [employer] (ADA) provides guidance for cutoff [...] Standards of Medical Care in Diabetes 2016; [employer]. Diabetes Care. 2016;39(Suppl 1). Performed By: #### C BC1 #### [facility] [address] [place], [place] [address] Potassium [Moles/Vol] 4.7 mmol/L Normal 3.7-5.1 [facility] Comment on above: Performed By: #### C BC1 #### [address] [address] Sodium [Moles/Vol] 138 mmol/L Normal 136-144 [facility] Comment on above: Performed By: #### C BC1 #### [address] [address] Urea nitrogen [Mass/Vol] 15 mg/dL Normal 7-21 [facility] Comment on above: Performed By: #### C BC1 #### [address] [address] Blood Gas Arterialon 05-14-2 020 Base Excess -1.8 mmol/L Normal -3.0-3.0 [facility] Comment on above: Performed By: #### C MP #### [address] [address] HCO3 (Bld) [Moles/Vol] 23.4 mmol/L Normal 21.0-28.0 [facility] Comment on above: Performed By: #### C MP #### [facility] [address] [place], [place] [address] O2% Sat Arterial 95.3 % Low 96.0-100.0 [facility] Comment on above: Performed By: #### C MP #### [address] [address] PCO2 Arterial 43.3 mm Hg Normal 35.0-45.0 [facility] Comment on above: Performed By: #### C MP #### [facility] [address] [place], [place] [address] pH Arterial 7.352 Normal 7.350-7.450 [facility] Comment on above: Performed By: #### C MP #### [facility] [address] [place] [address] PO2 Arterial 81.8 mm Hg Low 83.0-108.0 [facility] Comment on above: Performed By: #### C MP #### [facility] [address] [place] [address] FIO2 21 % Normal [facility] Comment on above: Performed By: #### C MP #### [facility] [address] [place] [address] CONSULTon 01-05-2020 CONSULT HNO ID: [id number] Author: Leandra Joiner Jr. 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 , Disp: [...] propionate (FLONASE ALLERGY RELIEF NASAL) Use 1 [place] in the nose twice daily. omeprazole (PRILOSEC) [...] 05, 2020 TIME: 2:34 PM PAGER/CONTACT #: [phone] [facility] [place], [facility] STAFF PHYSICIAN NOTE OF PERSONAL INVOLVEMENT IN CARE I have reviewed the consult note obtained and documented by the physician marketing support assistant and I personally participated in the [...] weakness that she received intravenous TPA at [facility] once for in the past. In reviewing her records here at [facility] she has had at [...] such intervention. SIGNATURE: Leandra Joiner MD PAGER: [phone] DATE of SERVICE: January 05, 2020 TIME of SERVICE: 4:59 PM Normal [facility] CONSULT PROGon 01-05-2020 CONSULT PROG HNO ID: [id number] Author: Sonia Acosta) LILIAN Barros Service: Neurosurgery Author Type: Physician Engineer Exhauster Type: Consult Progress Note Filed: 01/06/2020 7:16 [...] (attending on this pt) and Dr. Hare (cannon fire direction specialist) were both notified following these new developments. 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 Pt was stephan flat and treatment by neurology initiated. No current neurosurgical intervention indicated. Will continue to follow. LILIAN Rodríguez 4:15 PM Normal [facility] CPKon 01-05-2020 CK [Catalytic activity/Vol] 57 U/L Normal 42-196 [facility] Comment on above: Performed By: #### G FR #### [facility] [address] [place] [address] [address] BRAIN ATTACK WO IVCONon 0 01-05-2020 CT BRAIN ATTACK WO IVCON * * *Final Report* * * DATE OF EXAM: Jan 05 2020 2:31PM [facility] 0502 - CT BRAIN ATTACK [...] Dr. Joiner on 01/05/2020 at 14:52. CR_1 Belting And Webbing Inspector: BINTA Transcribe Date/Time: Jan 05 2020 2:35P Dictated by : CLEM OSBORNE MD This examination was interpreted and the report reviewed and electronically signed by: CLEM OSBORNE MD on Jan 05 2020 2:53PM EST CRITICAL!! Critically high [facility] CTA HEAD W IVCONon 0 CTA HEAD W IVCON * * *Final Report* * * DATE OF EXAM: Jan 05 2020 2:31PM [facility] 0022 - CTA HEAD W [...] arterial stenosis in the head or neck. Belting And Webbing Inspector: BINTA Transcribe Date/Time: Jan 05 2020 2:55P Dictated by : CLEM OSBORNE MD This examination was interpreted and the report reviewed and electronically signed by: CLEM OSBORNE MD on Jan 05 2020 3:03PM EST Normal [facility] CTA NECK W IVCONon 0 CTA NECK W IVCON * * *Final Report* * * DATE OF EXAM: Jan 05 2020 2:31PM [facility] 0024 - CTA NECK W [...] arterial stenosis in the head or neck. Belting And Webbing Inspector: BINTA Transcribe Date/Time: Jan 05 2020 2:55P Dictated by : CLEM OSBORNE MD This examination was interpreted and the report reviewed and electronically signed by: CLEM OSBORNE MD on Jan 05 2020 3:03PM EST Normal [facility] Hemogram/Diffon 01-05-2020 Abs Immature Grans 0.12 thou/cmm High 0.00-0.05 [facility] Comment on above: Performed By: #### C MP #### [place] [address] Abs Neut (ANC) 9.58 thou/cmm High 1.56-6.13 [facility] Comment on above: Performed By: #### C MP #### [place] [address] Abs. Baso 0.02 thou/cmm Normal 0.01-0.08 [facility] Comment on above: Performed By: #### C MP #### [facility] [address] [place] [address] Abs. [place] 0.71 thou/cmm High 0.27-0.70 [facility] Comment on above: Performed By: #### C MP #### [facility] [address] [place] [address] Basophils/100 WBC (Bld) 0.2 % Normal [facility] Comment on above: Performed By: #### C MP #### [facility] [address] [place] [address] Eosinophils (Bld) [#/Vol] 0.00 thou/cmm Normal 0.00-0.31 [facility] Comment on above: Performed By: #### C MP #### [place] [address] Eosinophils/100 WBC (Bld) 0.0 % Normal [facility] Comment on above: Performed By: #### C MP #### [facility] [address] [place] [address] Erythrocyte distribution width (RBC) [Ratio] 13.2 % Normal 11.7-14.4 [facility] Comment on above: Performed By: #### C MP #### [facility] [address] [place] [address] Hematocrit (Bld) [Volume fraction] 45.2 % High 34.1-44.9 [facility] Comment on above: Performed By: #### C MP #### [facility] [address] [place] [address] Hemoglobin (Bld) [Mass/Vol] 14.7 g/dL Normal 11.2-15.7 [facility] Comment on above: Performed By: #### C MP #### [facility] [address] [place] [address] Immature Grans 1.10 % Normal [facility] Comment on above: Performed By: #### C MP #### [place] [address] Lymphocytes (Bld) [#/Vol] 0.77 thou/cmm Low 1.18-3.74 [facility] Comment on above: Performed By: #### C MP #### [facility] [address] [place], [place] [address] Lymphocytes/100 WBC (Bld) 6.9 % Normal [facility] Comment on above: Performed By: #### C MP #### [facility] [address] [place], [place] [address] MCH (RBC) [Entitic mass] 32.5 pg High 25.6-32.2 [facility] Comment on above: Performed By: #### C MP #### [facility] [address] [place], [place] [address] MCHC (RBC) [Mass/Vol] 32.5 % Normal 31.6-34.8 [facility] Comment on above: Performed By: #### C MP #### [facility] [address] [place], [place] [address] MCV (RBC) [Entitic vol] 99.8 fL High 79.4-94.8 [facility] Comment on above: Performed By: #### C MP #### [facility] [address] [place], [place] [address] Monocytes/100 WBC (Bld) 6.3 % Normal [facility] Comment on above: Performed By: #### C MP #### [address] [address] Platelet mean volume (Bld) [Entitic vol] 9.8 fL Normal 9.4-12.3 [facility] Comment on above: Performed By: #### C MP #### [facility] [address] [place], [place] [address] Platelets (Bld) [#/Vol] 301 thou/cmm Normal 182-369 [facility] Comment on above: Performed By: #### C MP #### [address] [address] RBC (Bld) [#/Vol] 4.53 mil/cmm Normal 3.93-5.22 [facility] Comment on above: Performed By: #### C MP #### [facility] [address] [place] [address] RDW SD 48.6 fl High 36.4-46.3 [facility] Comment on above: Performed By: #### C MP #### [facility] [address] [place] [address] Seg Neutrophil 85.5 % Normal [facility] Comment on above: Performed By: #### C MP #### [facility] [address] [place] [address] WBC (Bld) [#/Vol] 11.20 thou/cmm High 3.98-10.04 [facility] Comment on above: Performed By: #### C MP #### [facility] [address] [place] [address] Abs Immature Grans 0.11 thou/cmm High 0.00-0.05 [facility] Comment on above: Performed By: #### C BC1 #### [facility] [address] [place] [address] Abs Neut (ANC) 11.33 thou/cmm High 1.56-6.13 [facility] Comment on above: Performed By: #### C BC1 #### [facility] [address] [place] [address] Abs. Baso 0.01 thou/cmm Normal 0.01-0.08 [facility] Comment on above: Result Comment: Smea r scanned; tech agrees with automated differential Performed By: #### C BC1 #### [facility] [address] [place] [address] Abs. [place] 0.64 thou/cmm Normal 0.27-0.70 [facility] Comment on above: Performed By: #### C BC1 #### [place] [address] Basophils/100 WBC (Bld) 0.1 % Normal [facility] Comment on above: Performed By: #### C BC1 #### [place] [address] Eosinophils (Bld) [#/Vol] 0.00 thou/cmm Normal 0.00-0.31 [facility] Comment on above: Performed By: #### C BC1 #### [facility] [address] [place], [place] [address] Eosinophils/100 WBC (Bld) 0.0 % Normal [facility] Comment on above: Performed By: #### C BC1 #### [facility] [address] [place], [place] [address] Immature Grans 0.80 % Normal [facility] Comment on above: Performed By: #### C BC1 #### [facility] [address] [place], [place] [address] Lymphocytes (Bld) [#/Vol] 1.48 thou/cmm Normal 1.18-3.74 [facility] Comment on above: Performed By: #### C BC1 #### [facility] [address] [place], [place] [address] Lymphocytes/100 WBC (Bld) 10.9 % Normal [facility] Comment on above: Performed By: #### C BC1 #### [facility] [address] [place], [place] [address] Monocytes/100 WBC (Bld) 4.7 % Normal [facility] Comment on above: Performed By: #### C BC1 #### [facility] [address] [place], [place] [address] Seg Neutrophil 83.5 % Normal [facility] Comment on above: Performed By: #### C BC1 #### [facility] [address] [place], [place] [address] Erythrocyte distribution width (RBC) [Ratio] 13.1 % Normal 11.7-14.4 [facility] Comment on above: Performed By: #### C BC1 #### [facility] [address] [place], [place] [address] Hematocrit (Bld) [Volume fraction] 47.0 % High 34.1-44.9 [facility] Comment on above: Performed By: #### C BC1 #### [facility] [address] [place], [place] [address] Hemoglobin (Bld) [Mass/Vol] 15.3 g/dL Normal 11.2-15.7 [facility] Comment on above: Performed By: #### C BC1 #### [facility] [address] [place], [place] [address] MCH (RBC) [Entitic mass] 32.1 pg Normal 25.6-32.2 [facility] Comment on above: Performed By: #### C BC1 #### [facility] [address] [place], [place] [address] MCHC (RBC) [Mass/Vol] 32.6 % Normal 31.6-34.8 [facility] Comment on above: Performed By: #### C BC1 #### [facility] [address] [place] [address] MCV (RBC) [Entitic vol] 98.5 fL High 79.4-94.8 [facility] Comment on above: Performed By: #### C BC1 #### [facility] [address] [place] [address] Platelet mean volume (Bld) [Entitic vol] 9.8 fL Normal 9.4-12.3 [facility] Comment on above: Performed By: #### C BC1 #### [facility] [address] [place] [address] Platelets (Bld) [#/Vol] 352 thou/cmm Normal 182-369 [facility] Comment on above: Performed By: #### C BC1 #### [facility] [address] [place] [address] RBC (Bld) [#/Vol] 4.77 mil/cmm Normal 3.93-5.22 [facility] Comment on above: Performed By: #### C BC1 #### [facility] [address] [place] [address] RDW SD 47.5 fl High 36.4-46.3 [facility] Comment on above: Performed By: #### C BC1 #### [facility] [address] [place] [address] WBC (Bld) [#/Vol] 13.57 thou/cmm High 3.98-10.04 [facility] Comment on above: Performed By: #### C BC1 #### [facility] [address] [place] [address] Lactic Acidon 01-05-2020 Lactate [Moles/Vol] 1.3 mmol/L Normal 0.5-2.2 [facility] Comment on above: Performed By: #### G FR #### [place] [address] Lactate [Moles/Vol] 1.5 mmol/L Normal 0.5-2.2 [facility] Comment on above: Performed By: #### C MP #### [place] [address] NURSING PROGon 01-05-2020 NURSING PROG HNO ID: [id number] Author: Sneha CerratoRn) ARUN Rangel Service: ? Author Type: Registered Nurse Type: Nursing Progress Note Filed: 01/05/2020 2:15 PM Note Text: Nursing Progress Note Patient Name: Ortiz Mason Patient Location: [id number]/[place] [address] Daily Note: 2:14 PM patient having seizure like activity. Dr Hernandez at bedside and Ivy Davies NP neuro at bedside. This note was completed by: Sneha Rangel RN Normal [facility] NURSING PROG HNO ID: [id number] Author: Sneha Braden) ARUN Rangel Service: ? Author Type: Registered Nurse Type: Nursing Progress Note Filed: 01/05/2020 2:12 PM Note Text: Nursing Progress Note Patient Name: Ortiz Mason Patient Location: [id number]/[place] [address] Daily Note: 1405 cva team called overhead 1410 stroke team assembled with Dr. Hernandez and Ivy Davies, ELECTRONIC SYSTEM ENGINEER at bedside BS 117, vitals recorded This note was completed by: Sneha Rangel RN [facility] NURSING PROG HNO ID: [id number] Author: Colleen CerratoRn) ARUN Sargent Service: Nursing Author Type: Registered Nurse Type: Nursing Progress Note Filed: 01/05/2020 4:08 AM Note Text: Pt still with c/o constipation and feels abdomen more distended. Requesting lactulose message sent to Sound [facility] Osmolality Serumon 0 Osmolality [Osmolality] 308 mOsm/kg High 276-298 [facility] Comment on above: Performed By: #### G FR #### [place] [address] PROGRESSon 01-05-2020 PROGRESS HNO ID: [id number] Author: Allyssa Acosta) Samson Service: Neurology ICU Author Type: Physician Engineer Exhauster Type: Progress Notes Filed: 01/05/2020 5:32 PM [...] propionate (FLONASE ALLERGY RELIEF NASAL), Use 1 [place] in the nose twice daily. , Disp: [...] Prophylaxis/Anticoagula nts 01/04/20 0945 pneumatic compression stockings (ia,pr) 01/03/20 0345 vte non-pharmacologic prophylaxis - none indicated (ia,pr) VTE Prophylaxis: Contraindicated possible LP Plan of care discussed with: Provider, RN, Patient SIGNATURE: ALLYSSA DAVIES PA-C PATIENT NAME: Ortiz Mason DATE: January 05, 2020 TIME: 5:32 PM PAGER/CONTACT #: [phone] [facility] PROGRESS HNO ID: [id number] Author: Ching Horta Service: Hospital Medicine Author [...] echo as well as stroke team orders [facility] PROGRESS HNO ID: [id number] Author: Janeth Valderrama Service: Pain Management Author [...] status post gastric pacemaker presented 01/02 from [place] transfer with intractable back pain, urinary retention and severe bilateral lower extremity pain and spasm. Patient is followed by Dr. Robledo in [place] for pain management; last SI joint injection [...] # Pharmacy Refill Daily Dose* Pymt Type ATG JAVA DEVELOPER 11/11/2019 2 11/11/2019 Gabapentin 300 MG Capsule 90.00 30 Eu Pet [id number] [facility] ([facility] 0 [place] 09/26/2019 2 09/25/2019 Oxycodone-Acetaminophen 5-325 12.00 3 Al Abby [id number] [facility] ([id number]) 0 30.00 [place]ME [place] 09/19/2019 2 09/19/2019 Oxycodone-Acetaminophen 5-325 15.00 3 Do Kol [id number] [facility] (7357) 0 37.50 [place] 08/31/2019 2 08/31/2019 Gabapentin 300 MG Capsule 90.00 30 Ay Bas [id number] [facility] ([id number]) 0 [place] 07/15/2019 2 07/15/2019 Gabapentin 300 MG Capsule 90.00 30 Ay Bas [id number] [facility] ([id number]) 0 [place] 06/03/2019 2 05/30/2019 Diazepam 5 MG Tablet 10.00 4 To Le [id number] [facility] (7357) 0 1.25 LME [place] 06/03/2019 2 05/30/2019 Oxycodone-Acetaminophen 5-325 12.00 3 To Le [id number] [facility] (7357) 0 30.00 [place] 06/03/2019 2 06/03/2019 Gabapentin 300 MG Capsule 60.00 20 Je B [id number] [facility] (7357) 0 Medicare Current Facility-Administered Medications [...] 0841 - sodium chloride 0.65 % 2 [place] (AYR, OCEAN) 2 [place] EACH NOSTRIL PRN Ching Horta - senna-docusate [...] 4 mg [facility]AVENOUS q 6 [facility] 4 mg at 01/05/20 0354 - dexamethasone sodium phosphate 4 mg injection (DECADRON) 4 mg INTRAVENOUS q 6 H [facility] 4 mg at 01/05/20 1146 - pantoprazole DR 40 mg tab(s) (PROTONIX) 40 mg ORAL DAILY (6 AM) [facility] at 01/05/20 0610 - dextrose 40 % 15 g 15 g ORAL PRN [facility] Or - glucagon 1 mg injection (GLUCAGEN) 1 mg INTRAMUSCULAR PRN [facility] Or - dextrose 50% in water 25 mL syringe 12.5 g INTRAVENOUS PRN [facility] - insulin lispro pen (rapid acting) (HumaLOG KWIKPEN) SUBCUTANEOUS w MEALS [facility] 4 Units at 01/05/20 1145 - albuterol 2.5 mg /3 mL (0.083 %) 2.5 mg (PROVENTIL) 2.5 mg INHALATION q 6 H PRN [facility] - magnesium oxide 400 mg tab(s) [...] propionate (FLONASE ALLERGY RELIEF NASAL), Use 1 [place] in the nose twice daily. , Disp: [...] Admitted) 01/03/20 0700 - 01/04/20 0659 Shift [id number] [id number] 5121-6676 24 Hour Total 7822-7262 5675-3242 9623-7718 24 Hour Total INTAKE Shift Total OUTPUT [...] Disposition pending Follow-up with Dr. Robledo in [place] after discharge Janeth Valderrama MD Normal [facility] PROGRESS HNO ID: [id number] Author: Ching Horta Service: Hospital Medicine Author Type: Physician Type: Progress Notes Filed: 01/05/2020 12:07 PM Note Text: DEPARTMENT OF HOSPITAL MEDICINE PROGRESS NOTE SERVICE DATE: 01/05/2020 SERVICE TIME: 10:10 AM Hospital Medicine/Primary Attending: Ching Horta, DO NIGHT AND WEEKEND COVERAGE: After 7pm, please call cross cover pager #[phone] Subjective INTERVAL HPI: Patient seen and examined. Thinks leg pain has improved. Still significant on R side but overall better. Complaining of R foot pain with ambulation. Wants the tucker removed-apparently it was put in in [place] ER for concern for urinary retention MEDICATIONS: 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- decreased sensation to RLE, has pain in [...] 0343 -- 01/04/20 0945 pneumatic compression stockings (ia,pr) 01/03/20 034 vte non-pharmacologic prophylaxis - none indicated (ia,pr) VTE Prophylaxis: VTE prophylaxis appropriate Disposition: To be determined Plan of care discussed with: Provider, RN, Patient SIGNATURE: Ching Horta DO PATIENT NAME: Ortiz Mason DATE: January 05, 2020 TIME: 10:10 AM PAGER/CONTACT #: [phone] Normal [facility] THERAPY NTon 01-05-2020 THERAPY NT HNO ID: [id number] Author: Pita (Pt) Hiram Service: Physical Therapy Author Type: Physical Therapist Type: Therapy (PT/OT/Speech/Resp) Filed: 01/05/2020 1:55 PM Note Text: PHYSICAL THERAPY MISSED VISIT SERVICE DATE: 01/05/2020 SERVICE TIME: 1354 to 1354 ROOM: [place] [address] Attempted Evaluation. Patient not seen due to Illness. RN and tech in room, RN stating patient began coughing and O2 sats slightly dropped. Will follow when more appropriate. SIGNATURE: Pita Gandhi PT PATIENT NAME: Ortiz Mason DATE: January 05, 2020 TIME: 1:54 PM Normal [facility] Troponin T, High Sens.on Troponin T, High Sens. <6 Normal 0-11 [facility] Comment on above: Result Comment: Emi ents [...] result. Performed By: #### C MP #### [facility] [address] [place], [place] [address] XR CHEST 1V FRONTALon 2019 XR CHEST [...] is noted. IMPRESSION: No acute radiographic abnormality. Belting And Webbing Inspector: BINTA Transcribe Date/Time: Jan 05 2020 2:40P Dictated by : RHONDA GAO MD This examination was interpreted and the report reviewed and electronically signed by: RHONDA GAO MD on Jan 05 2020 2:41PM EST Normal [facility] Basic Metabolic Panelon 12-22 Anion gap [Moles/Vol] 16 mmol/L Normal 9-18 [facility] Comment on above: Performed By: #### C BC1 #### [facility] [address] [place], [place] [address] Calcium [Mass/Vol] 9.1 mg/dL Normal 8.5-10.2 [facility] Comment on above: Performed By: #### C BC1 #### [facility] [address] [place], [place] [address] Chloride [Moles/Vol] 100 mmol/L Normal 97-105 [facility] Comment on above: Performed By: #### C BC1 #### [facility] [address] [place], [place] [address] CO2 Blood 21 mmol/L Low 22-30 [facility] Comment on above: Performed By: #### C BC1 #### [facility] [address] [place], [place] [address] Creatinine [Mass/Vol] 0.67 mg/dL Normal 0.58-0.96 [facility] Comment on above: Performed By: #### C BC1 #### [facility] [address] [place], [place] [address] Glucose [Mass/Vol] 194 mg/dL High 74-99 [facility] Comment on above: Result Comment: The [employer] (ADA) provides guidance for cutoff [...] Standards of Medical Care in Diabetes 2016; [employer]. Diabetes Care. 2016;39(Suppl 1). Performed By: #### C BC1 #### [facility] [address] [place], [place] [address] Potassium [Moles/Vol] 4.2 mmol/L Normal 3.7-5.1 [facility] Comment on above: Performed By: #### C BC1 #### [facility] [address] [place], [place] [address] Sodium [Moles/Vol] 137 mmol/L Normal 136-144 [facility] Comment on above: Performed By: #### C BC1 #### [facility] [address] [place], [place] [address] Urea nitrogen [Mass/Vol] 17 mg/dL Normal 7-21 [facility] Comment on above: Performed By: #### C BC1 #### [facility] [address] [place], [place] [address] CASE MGT INIT ASSESon 2019 CASE MGT INIT ASSES HNO ID: [id number] Author: Ana (Rn) Abner RN Service: Care [...] days? Advance Directive: Current Advance Directive: None Boring Machine Operator Attempted to Assist with AD Completion: No [...] Information Primary Emergency Contact: Leandra Miller Address: [address] [place] [id number] Mobile Relation: Significant other Secondary Emergency Contact: MARC MASON [place] Relation: Spouse Social Needs Food insecurity Worry: [...] Needs: Psychosocial Needs: FREEDOM OF CHOICE EXPLAINED: [place] of Choice Given: Yes Level of Care Discussed: Home Care Financial Disclosure Provided: Yes Financial Disclosure Comments: [facility] Home Health Care Affiliation Provider List: Home Care Provider list within the patient's requested geographic area shared with the patient/family: Yes within: 10 miles of zip code: [address] Quality and resource use metrics shared with [...] Walker and BSC, PCP Dr. Loredo in [place], Uses [facility] pharmacy on [address] [facility] in [place], if discharged during the week would like [...] transportation to MD appt's. Discussed contacting patients [facility] insurance to inquire about transportation thru them. Pt. States she has a Magazine Feeder thru [facility] she has her name and number at home. Pt verbalizes concerns about being able to rate examiner the shower or get down into the bath tub at discharge. Pt. May benefit from a shower chair and HHC follow up at dischage. Will continue to follow. SIGNATURE: Ana Levine RN PATIENT NAME: Ortiz Mason DATE: January 04, 2020 TIME: 11:56 AM PAGER/CONTACT #: [phone] Normal [facility] CPKon 01-04-2020 CK [Catalytic activity/Vol] 119 U/L Normal 42-196 [facility] Comment on above: Performed By: #### C BC1 #### [place] [address] Cult Urineon 01-04-2020 Cult [facility] No growth <1,000 CFU/ml. Normal [facility] Comment on above: Performed By: #### C MP #### [place] [address] Hgb A1con 01-04-2020 HbA1c (Bld) [Mass fraction] 5.4 % Normal 4.0-5.6 [facility] Comment on above: Result Comment: Amer ican Diabetes Association guidelines indicate that the patients with HgA1c in the range 5.7 ? 6.4% are at increased risk for development of diabetes, and intervention by lifestyle modification may be beneficial. HgA1c greater or equal to 6.5% is considered diagnostic of diabetes. Performed By: #### C BC1 #### [facility] [address] [place], [place] [address] HbA1c (Bld) [Mass fraction] 108 mg/dL Normal [facility] Comment on above: Performed By: #### C BC1 #### [facility] [address] [place], [place] [address] PLAN OF CAREon 01-04-2020 PLAN OF CARE HNO ID: [id number] Author: Felicitas Lo (Winery Cellar Hand) Service: ? Author Type: ? Type: Plan of Care Filed: 01/04/2020 2:17 PM Note Text: SPACE AND MISSILE OPERATIONS BEDSIDE DELIVERY SURVEY 1. Patient to use [facility] Bedside Delivery - YES Insurance Information as follows: 2. Insurance card on file - YES 3. Credit card for payment - N/A Please call pharmacy bedside delivery at [phone] or [phone] if patient would like medications filled and delivered prior to discharge. Felicitas Lo (Winery Cellar Hand) [facility] PLAN OF CARE HNO ID: [id number] Author: Jodi Gerber (Pharmacist) Service: Emergency Medicine Author Type: Pharmacist Type: Plan of Care Filed: 01/04/2020 10:17 AM Note Text: MEDICATION HISTORY Patient Name:Josue Mason : 1970 Source of history:Patient: Reliability of source: Appears reliable, clearly identified: Medication name, Medication dose, Medication route, Medication frequency, Timing of last dose and Indications, Pharmacy records: [facility] [phone], [facility] records and [facility] Medication Nonadherence Identified: No barriers noted The above information represents the best possible medication history: Yes Additional comments: Medication history obtained from patient and pharmacy fill records in [facility]. Spoke with patient that was tearful but knowledgeable about medications. Reviewed all medications and their doses, strengths, frequencies with the patient and verified against pharmacy records. Changes to medication list documented below. [id number] Medication List Adjustments: - Gabapentin strength, dose, [...] [Prop* Unknown - Penicillins Unknown Preferred Pharmacy: [facility] [phone] Current DOG RAISER Medications: Prior to Admission medications as of [...] propionate (FLONASE ALLERGY RELIEF NASAL) Use 1 [place] in the nose twice daily. 01/02/2020 at Unknown time Yes omeprazole (PRILOSEC) 20 mg ORAL capsule Take 40 mg by mouth once daily. 01/02/2020 at Unknown time Yes Zuly Urbina (Winery Cellar Hand) January 04, 2020 9:40 AM MEDICATION RECONCILIATION Patient Name:Josue Mason : 1970 Reconciliation: Yes All DOG RAISER medications addressed by LIP, Medications intentionally held at admission: advair, omeprazole (nonformulary), proair, multivitamin, flonase and Discussed with LIP, plans to modify dose of Keppra to 1500 mg twice daily based on updated medication history Additional comments: Medication history obtained from patient and pharmacy records by internal specialist as documented above. All medications reviewed and reconciled appropriately. JODI GERBER, PHARMACIST January 04, 2020 10:15 AM Ext: [phone] Normal [facility] PROGRESSon 01-04-2020 PROGRESS HNO ID: [id number] Author: Sonia Ferreira (Lilian) LILIAN Barros Service: Neurosurgery Author Type: Physician Engineer Exhauster Type: Progress Notes Filed: 01/04/2020 4:23 PM [...] 01/03/20699 - 01/04/2065801/04/20699 - 01/05/20 0659 Shift 4976-7702 5399-5456 8688-5459 24 Hour Total 3445-9459 4056-5659 9442-2120 24 Hour Total INTAKE Shift Total OUTPUT Urine 039 913 0114 2900 750 750 Void (ml) 1400 1400 Output ( Indwelling Urinary Catheter 01/03/20 0325 Admission to [facility] 16 Fr) 387 387 6311 750 750 Shift Total 153 655 8766 2900 750 750 Weight (kg) 100.2 100.2 100.2 100.2 100.2 100.2 100.2 100.2 MEDICATIONS Current Facility-Administered Medications Medication Dose Route Frequency - sodium chloride 0.65 % 2 [place] (AYR, OCEAN) 2 [place] EACH NOSTRIL PRN - melatonin 9 mg [...] January 04, 2020 TIME: 2:46 PM Pager: [phone] [facility] PROGRESS HNO ID: [id number] Author: Janeth Valderrama Service: Pain Management Author [...] status post gastric pacemaker presented 01/02 from [place] transfer with intractable back pain, urinary retention and severe bilateral lower extremity pain and spasm. Patient is followed by Dr. Robledo in [place] for pain management; last SI joint injection [...] # Pharmacy Refill Daily Dose* Pymt Type ATG JAVA DEVELOPER 11/11/2019 2 11/11/2019 Gabapentin 300 MG Capsule 90.00 30 Eu Pet [id number] [id number] 0 [place] 09/26/2019 2 09/25/2019 Oxycodone-Acetaminophen 5-325 12.00 3 Al Abby [id number] [facility] ([id number]) 0 30.00 [place] 09/19/2019 2 09/19/2019 Oxycodone-Acetaminophen 5-325 15.00 3 Do Kol [id number] [facility] ([id number]) 0 37.50 [place] 08/31/2019 2 08/31/2019 Gabapentin 300 MG Capsule 90.00 30 Ay Bas [id number] [facility] ([id number][facility] 0 [place] 07/15/2019 2 07/15/2019 Gabapentin 300 MG Capsule 90.00 30 Ay Bas [id number] [facility] ([id number][facility] 0 [place] 06/03/2019 2 05/30/2019 Diazepam 5 MG Tablet 10.00 4 To Le [id number] [facility] ([id number]) 0 1.25 LME [place] 06/03/2019 2 05/30/2019 Oxycodone-Acetaminophen 5-325 12.00 3 To Le [id number] [facility] ([id number]) 0 30.00 [place] 06/03/2019 2 06/03/2019 Gabapentin 300 MG Capsule 60.00 20 Je B [id number] [facility] (7357) 0 Medicare Current Facility-Administered Medications Medication Dose Route Frequency Provider Last Rate Last Dose -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 INTRAMUSCULAR PRN [facility] Or - dextrose 50% in water 25 mL syringe 12.5 g INTRAVENOUS PRN [facility] - insulin lispro pen (rapid acting) (HumaLOG KWIKPEN) SUBCUTANEOUS w MEALS [facility] 2 Units at 01/04/20 0802 - albuterol 2.5 mg /3 mL (0.083 %) 2.5 mg (PROVENTIL) 2.5 mg INHALATION q 6 H PRN [facility] - magnesium oxide 400 mg tab(s) [...] propionate (FLONASE ALLERGY RELIEF NASAL), Use 1 [place] in the nose twice daily. , Disp: [...] 0659(Not Admitted) 01/03/20699 - 01/04/20 0659 Shift 4252-2975 0388-0183 7458-5945 24 Hour Total 9319-4397 5358-8971 8662-8170 24 Hour Total INTAKE Shift Total OUTPUT [...] with you. Follow-up with Dr. Robledo in [place] after discharge Discussed with RN MD Felicitas Benjamin (Winery Cellar Hand) 01/04/2020 2:17 PM Signed [facility]LE [employer]PER[facility] BEDSIDE DELIVERY SURVEY 1. Patient to use [facility] Bedside Delivery - YES Insurance Information as follows: 2. Insurance card on file - YES 3. Credit card for payment - N/A Please call pharmacy bedside delivery at [phone] or [phone] if patient would like medications filled and delivered prior to discharge. Felicitas Lo (Winery Cellar Hand) LILIAN Rodríguez, PA 01/04/2020 4:23 PM Addendum [...] 0659 01/04/20 07 - 01/05/20 0659 Shift 5295-5319 9627-5559 5442-1319 24 Hour Total 5199-0745 6639-3699 0646-4620 24 Hour Total INTAKE Shift Total OUTPUT Urine 823 746 3019 2900 750 750 Void (ml) 1400 1400 Output ( Indwelling Urinary Catheter 01/03/20 0325 Admission to Hospital Tucker 16 Fr) 594 806 3339 750 750 Shift Total 878 873 7982 2900 750 750 Weight (kg) 100.2 100.2 100.2 100.2 100.2 100.2 100.2 100.2 MEDICATIONS Current Facility-Administered Medications Medication Dose Route Frequency - sodium chloride 0.65 % 2 [place] (AYR, OCEAN) 2 [place] EACH NOSTRIL PRN - melatonin 9 mg [...] January 04, 2020 TIME: 2:46 PM Pager: [phone] Previous Version Colleen Sargent, RN, RN 01/05/2020 4:08 AM Signed Pt still with c/o constipation and feels abdomen more distended. Requesting lactulose message sent to RT Leroy, Smart Cube 01/05/2020 6:41 AM Signed Called for MRI screening form. RT Samuel, Tech 01/05/2020 6:44 AM Signed Pt has non compatible gastric pacer per RN. MRI cancelled. Ching Horta DO 01/05/2020 12:07 PM Addendum DEPARTMENT OF HOSPITAL MEDICINE PROGRESS NOTE SERVICE DATE: 01/05/2020 SERVICE TIME: 10:10 AM Hospital Medicine/Primary Attending: Ching Horta DO NIGHT AND WEEKEND COVERAGE: After 7pm, please call cross cover pager #[phone] Subjective INTERVAL HPI: Patient seen and examined. Thinks leg pain has improved. Still significant on R side but overall better. Complaining of R foot pain with ambulation. 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 Tucker placed in [place], void trial Medication and Non-Pharmacologic VTE Prophylaxis/Anticoagula nts Anticoagulant AND Antiplatelet Medications (From admission, onward) Start Dose Route Frequency Ordered Stop 01/03/20 0900 enoxaparin 40 mg injection (LOVENOX) (Medical Risk Categories) 40 mg SUBCUTANEOUS DAILY 01/03/20 0343 -- 01/04/20 0945 pneumatic compression stockings (ia,oh) 01/03/20 0345 vte non-pharmacologic prophylaxis - none indicated (ia,oh) VTE Prophylaxis: VTE prophylaxis appropriate Disposition: To be determined Plan of care discussed with: Provider, RN, Patient SIGNATURE: Ching Horta DO PATIENT NAME: Ortiz Mason DATE: January 05, 2020 TIME: 10:10 AM PAGER/CONTACT #: [phone] [phone] Previous Version Janeth Valderrama MD 01/05/2020 12:19 [...] status post gastric pacemaker presented 01/02 from [place] transfer with intractable back pain, urinary retention and severe bilateral lower extremity pain and spasm. Patient is followed by Dr. Robledo in [place] for pain management; last SI joint injection [...] # Pharmacy Refill Daily Dose* Pymt Type ATG JAVA DEVELOPER 11/11/2019 2 11/11/2019 Gabapentin 300 MG Capsule 90.00 30 Eu Pet [id number] [facility] (7357) 0 [place] 09/26/2019 2 09/25/2019 Oxycodone-Acetaminophen 5-325 12.00 3 Al Abby [id number] [facility] (7357) 0 30.00 [place]ME [place] 09/19/2019 2 09/19/2019 Oxycodone-Acetaminophen 5-325 15.00 3 Do Kol [id number] [facility] (7357) 0 37.50 [place]ME [place] 08/31/2019 2 08/31/2019 Gabapentin 300 MG Capsule 90.00 30 Ay Bas [id number] [facility] (7357) [place] 07/15/2019 2 07/15/2019 Gabapentin 300 MG Capsule 90.00 30 Ay Bas [id number] [facility] (7357) 0 [place] 06/03/2019 2 05/30/2019 Diazepam 5 MG Tablet 10.00 4 To Le [id number] [facility] (7357) 0 1.25 LME [place] 06/03/2019 2 05/30/2019 Oxycodone-Acetaminophen 5-325 12.00 3 To Le [id number] [facility] (7357) 0 30.00 [place]ME [place] 06/03/2019 2 06/03/2019 Gabapentin 300 MG Capsule 60.00 20 Je B [id number] [facility] (7357) 0 Medicare Current Facility-Administered Medications [...] 0841 - sodium chloride 0.65 % 2 [place] (AYR, OCEAN) 2 [place] EACH NOSTRIL PRN Ching Horta - senna-docusate 8.6-50 mg 2 tablet (SENNA-S) 2 tablet ORAL BID Janeth K Scantling 2 tablet at 01/05/20 0841 - iv contrast (radiology procedure) INTRAVENOUS DIRECTED PRN Gayle Leon - cyclobenzaprine 5 mg tab(s) (FLEXERIL) 5 mg ORAL TID PRN Janeth K Scantling 5 mg at 01/05/20 1144 - melatonin 9 mg tab(s) 9 mg ORAL AT BEDTIME [facility] 9 mg at 01/04/20 1957 - enoxaparin 40 mg injection (LOVENOX) 40 mg SUBCUTANEOUS DAILY [facility] 40 mg at 01/05/20 0841 - NaCl 0.9% 3-5 mL 3-5 mL INTRAVENOUS q 12 H [facility] 3 mL at 01/05/20 0842 - ondansetron 4 mg tab(s) (ZOFRAN) 4 mg ORAL q 6 H PRN Naar Gonzalez 4 mg at 01/05/20 0841 Or - ondansetron (PF) 4 mg injection (ZOFRAN) 4 mg INTRAVENOUS q 6 H PRN Naar Gonzalez 4 mg at 01/05/20 0354 - dexamethasone sodium phosphate 4 mg injection (DECADRON) 4 mg INTRAVENOUS q 6 H [facility] 4 mg at 01/05/20 1146 - pantoprazole DR 40 mg tab(s) (PROTONIX) 40 mg ORAL DAILY (6 AM) Naar Gonzalez 40 mg at 01/05/20 0610 - dextrose 40 % 15 g 15 g [facility] - glucagon 1 mg injection (GLUCAGEN) 1 mg INTRAMUSCULAR PRN [facility] Or - dextrose 50% in water 25 mL syringe 12.5 g INTRAVENOUS PRN [facility] - insulin lispro pen (rapid acting) [...] propionate (FLONASE ALLERGY RELIEF NASAL), Use 1 [place] in the nose twice daily. , Disp: [...] Admitted) 01/03/20 07 - 01/04/20 0659 Shift 2835-6725 6302-6351 9866-1879 24 Hour Total 9257-8360 0122-2403 1131-1451 24 Hour Total INTAKE Shift Total OUTPUT [...] Disposition pending Follow-up with Dr. Robledo in [place] after discharge MD Ha Benjamin, Student 01/05/2020 1:36 PM Signed SPIRITUALCARE Spiritual Care Visit- Brief Note Name: Ortiz Mason Date: January 05, 2020 Notes: Called room and spoke with patient. Prayed with patient. Spiritual care team is available as needed and discussed with patient how to contact us. Hospital Carrier Signature: Ha Yu To contact the Spiritual Care Department: Please call [phone] or Page the On-Call Hospital Carrier at pager [phone] Thank you for the opportunity to be of service. This is an electronically created document. IF PRINTED, PLEASE DO NOT REMOVE FROM THE CHART OR MODIFY PRINTED COPY. Pita Gandhi, PT 01/05/2020 1:55 PM Signed PHYSICAL THERAPY MISSED VISIT SERVICE DATE: 01/05/2020 SERVICE TIME: 1354 to 1354 ROOM: [id number] Attempted Evaluation. Patient not seen due to Illness. RN and tech in room, RN stating patient began coughing and O2 sats slightly dropped. Will follow when more appropriate. SIGNATURE: Pita Gandhi, PT PATIENT NAME: Ortiz Mason DATE: January 05, 2020 TIME: 1:54 PM Sneha Rangel, RN, RN 01/05/2020 2:12 PM Signed Nursing Progress Note Patient Name: Ortiz Mason Patient Location: [id number] Daily Note: 1405 cva team called overhead 1410 stroke team assembled with Dr. Hernandez and Ivy Davies, ELECTRONIC SYSTEM ENGINEER at bedside BS 117, vitals recorded This [...] Note Patient Name: Ortiz Mason Patient Location: [id number] Daily Note: 2:14 PM patient having seizure [...] - Stomach cancer (HCC) 2009 - Stroke ([facility]) 09/09/2010 Right Hemisphere - Uterine cancer (HCC) [...] propionate (FLONASE ALLERGY RELIEF NASAL), Use 1 [place] in the nose twice daily. , Disp: [...] propionate (FLONASE ALLERGY RELIEF NASAL) Use 1 [place] in the nose twice daily. omeprazole (PRILOSEC) [...] 05, 2020 TIME: 2:34 PM PAGER/CONTACT #: [phone] [facility] [place] BY [facility] STAFF PHYSICIAN NOTE OF PERSONAL INVOLVEMENT IN CARE I have reviewed the consult note obtained and documented by the physician marketing support assistant and I personally participated in the [...] weakness that she received intravenous TPA at [facility] once for in the past. In reviewing her records here at [facility] she has had at [...] such intervention. SIGNATURE: Leandra Joiner MD PAGER: [phone] DATE of SERVICE: January 05, 2020 TIME [...] propionate (FLONASE ALLERGY RELIEF NASAL), Use 1 [place] in the nose twice daily. , Disp: [...] (attending on this pt) and Dr. Hare (cannon fire direction specialist) were both notified following these new developments. [...] ISS Glucose checks q6h while NPO Michelle Talaevra APRN.CAKE TESTER 01/06/2020 6:26 AM Edited 01/04: arrived to [...] brain wit (more content not included)... Normal [facility] Hemogramon 01-03-2020 Erythrocyte distribution width (RBC) [Ratio] 13.2 % Normal 11.7-14.4 [facility] Comment on above: Performed By: #### C BC1 #### [facility] [address] [place] [address] Hematocrit (Bld) [Volume fraction] 44.7 % Normal 34.1-44.9 [facility] Comment on above: Performed By: #### C BC1 #### [place] [address] Hemoglobin (Bld) [Mass/Vol] 14.6 g/dL Normal 11.2-15.7 [facility] Comment on above: Performed By: #### C BC1 #### [place] [address] MCH (RBC) [Entitic mass] 32.4 pg High 25.6-32.2 [facility] Comment on above: Performed By: #### C BC1 #### [place] [address] MCHC (RBC) [Mass/Vol] 32.7 % Normal 31.6-34.8 [facility] Comment on above: Performed By: #### C BC1 #### [place] [address] MCV (RBC) [Entitic vol] 99.1 fL High 79.4-94.8 [facility] Comment on above: Performed By: #### C BC1 #### [place] [address] Platelet mean volume (Bld) [Entitic vol] 10.4 fL Normal 9.4-12.3 [facility] Comment on above: Performed By: #### C BC1 #### [facility] [address] [place], [place] [address] Platelets (Bld) [#/Vol] 292 thou/cmm Normal 182-369 [facility] Comment on above: Performed By: #### C BC1 #### [facility] [address] [place], [place] [address] RBC (Bld) [#/Vol] 4.51 mil/cmm Normal 3.93-5.22 [facility] Comment on above: Performed By: #### C BC1 #### [facility] [address] [place], [place] [address] RDW SD 49.0 fl High 36.4-46.3 [facility] Comment on above: Performed By: #### C BC1 #### [facility] [address] [place], [place] [address] WBC (Bld) [#/Vol] 10.75 thou/cmm High 3.98-10.04 [facility] Comment on above: Performed By: #### C BC1 #### [facility] [address] [place] [address] Magnesium Bloodon 01-03-2020 Magnesium [Mass/Vol] 2.2 mg/dL Normal 1.7-2.3 [facility] Comment on above: Performed By: #### M AG #### [facility] [address] [place] [address] PROGRESSon 01-03-2020 PROGRESS HNO ID: [id number] Author: Ivy Yeh Service: Hospital Medicine Author [...] from same date for further details. Normal [facility] US DVT LOWER BILon 0 US DVT LOWER JULI * * *Final Report* * * DATE OF EXAM: Jan 03 2020 3:31PM [facility] - US DVT LOWER JULI / [...] of the left and right lower extremities. Belting And Webbing Inspector: PSCB Transcribe Date/Time: Jan 03 2020 3:46P Dictated by : CHIKIS BRO MD This examination was interpreted and the report reviewed and electronically signed by: CHIKIS BRO MD on Jan 03 2020 3:47PM EST Normal [facility] Urinalysis Routineon 020 Bacteria LM.HPF (Urine sed) [#/Area] NONE Normal None [facility] Comment on above: Performed By: #### U RIN2 #### [place] [address] Ep Cells Urine 1.0 /hpf Normal 0.0-5.0 [facility] Comment on above: Performed By: #### U RIN2 #### [place] [address] Hyaline Cast 0.3 /lpf Normal 0.0-1.0 [facility] Comment on above: Performed By: #### U RIN2 #### [place] [address] RBC LM.HPF (Urine sed) [#/Area] 2.8 /[HPF] Normal 0.0-5.0 [facility] Comment on above: Performed By: #### U RIN2 #### [place] [address] WBC LM.HPF (Urine sed) [#/Area] 22.5 /[HPF] High 0.0-5.0 [facility] Comment on above: Performed By: #### U RIN2 #### [place] [address] Appearance (U) CLEAR Normal [facility] Comment on above: Performed By: #### U RIN2 #### [address] [place], [place] [address] Bilirubin (U) [Mass/Vol] Negative Normal Negative [facility] Comment on above: Performed By: #### U RIN2 #### [facility] [address] [place] [address] Color (U) YELLOW Normal [facility] Comment on above: Performed By: #### U RIN2 #### [facility] [address] [place] [address] Glucose Ql (U) Negative Normal Negative [facility] Comment on above: Performed By: #### U RIN2 #### [facility] [address] [place] [address] Hemoglobin,Urine SMALL Abnormal Negative [facility] Comment on above: Performed By: #### U RIN2 #### [facility] [address] [place] [address] Ketone Urine Negative Normal Negative [facility] Comment on above: Performed By: #### U RIN2 #### [facility] [address] [place] [address] Leukocytes Esterase MODERATE Abnormal Negative [facility] Comment on above: Performed By: #### U RIN2 #### [facility] [address] [place] [address] Nitrites Urine Negative Normal Negative [facility] Comment on above: Performed By: #### U RIN2 #### [facility] [address] [place] [address] pH (U) 5.5 [pH] Normal 5.0-8.0 [facility] Comment on above: Performed By: #### U RIN2 #### [facility] [address] [place] [address] Protein (U) [Mass/Vol] Negative Normal Negative [facility] Comment on above: Performed By: #### U RIN2 #### [facility] [address] [address] Specific Mora, Ur 1.019 Normal 1.005-1.030 [facility] Comment on above: Performed By: #### U RIN2 #### [place] [address] Urobilinogen,Ur 0.2 EU/dL Normal 0.2-1.0 [facility] Comment on above: Performed By: #### U RIN2 #### [facility] [address] [place] [id number] XR LUMBAR 2V FLEX/EXTon 12-22 XR LUMBAR [...] of dynamic instability. Correlate with myelogram results. Belting And Webbing Inspector: PSCB Transcribe Date/Time: Jan 03 2020 8:00P Dictated by : CHIKIS BRO MD This examination was interpreted and the report reviewed and electronically signed by: CHIKIS BRO MD on Jan 03 2020 8:03PM EST Normal [facility] XR LUMBAR 3V AP/LAT/L5-S1on 01-03-2020 XR [...] of dynamic instability. Correlate with myelogram results. Belting And Webbing Inspector: PSCB Transcribe Date/Time: Jan 03 2020 8:00P Dictated by : CHIKIS BRO MD This examination was interpreted and the report reviewed and electronically signed by: CHIKIS BRO MD on Jan 03 2020 8:03PM EST Normal [facility] XR MYELOGRAM COMPL SPINE DIF F Arleen 01-03-2020 XR MYELOGRAM COMPL SPINE DIFF * * *Final Report* * * DATE OF EXAM: Jan 03 2020 2:58PM [facility] 0030 - XR MYELOGRAM COMPL SPINE DIFF [...] needs. Timeout Affirmation (if attending not present): CATALYST UNIT OPERATOR and RT present. F) Anesthesia Type: administration [...] guidance was performed in conjunction with the radiology transporter. Plane A, Air Kerma: 97.4 mGy Dose Area Product (DAP): 50407.2 mGy*cm Fluoro time: 0:12 min: sec Post-Procedure: [...] procedure was performed by: Reuben Marshall CNP Belting And Webbing Inspector: BINTA Transcribe Date/Time: Jan 03 2020 3:17P Dictated by : REUBEN MARSHALL CNP This examination was interpreted and the report reviewed and electronically signed by: REUBEN MARSHALL CNP on Jan 03 2020 3:18PM EST Normal [facility] Basic Metabolic Panelon 08-25 Anion gap [Moles/Vol] 12 Normal [facility] Comment on above: Performed By: #### B MP3 #### [facility] [address] [place] [address] Calcium [Mass/Vol] 8.9 mg/dL Normal 8.4-10.4 [facility] Comment on above: Performed By: #### B MP3 #### [place] [address] [place] [address] CO2 [Moles/Vol] 13 mmol/L Low 22-30 [facility] Comment on above: Performed By: #### B MP3 #### [facility] [address] [place] [address] Glucose [Mass/Vol] 91 mg/dL Normal 70-100 [facility] Comment on above: Performed By: #### B MP3 #### [place] [address] [place] [address] Urea nitrogen [Mass/Vol] 8 mg/dL Normal 7-20 [facility] Comment on above: Performed By: #### B MP3 #### [facility] [address] [place] [address] Creatinine [Mass/Vol] 0.60 mg/dL Normal 0.52-1.25 [facility] Comment on above: Performed By: #### B MP3 #### [facility] [address] [place] [address] GFR/1.73 sq M predicted among blacks MDRD (S/P/Bld) [Vol rate/Area] mL/min/{1.73_m2} Normal >60 [facility] Comment on above: Performed By: #### B MP3 #### [place] [address] [address] [place], [place] GFR/1.73 sq M predicted among non-blacks MDRD (S/P/Bld) [Vol rate/Area] mL/min/{1.73_m2} Normal >60 [facility] Comment on above: Result Comment: Sour ce- MDRD equation with creatinine calibration to IDMS(NKDEP) eGFR not recommended for drug dose adjustment Performed By: #### B MP3 #### [facility] [address] [place], [place] Chloride [Moles/Vol] 112 mmol/L High 98-107 [facility] Comment on above: Performed By: #### B MP3 #### [place] [address] [address] [place], [place] Potassium [Moles/Vol] 4.7 mmol/L Normal 3.5-5.1 [facility] Comment on above: Result Comment: Slig htly hemolysed, interpret with caution. Performed By: #### B MP3 #### [place] [address] [address] [place], [place] Sodium [Moles/Vol] 137 mmol/L Normal 135-145 [facility] Comment on above: Performed By: #### B MP3 #### [facility] [address], [place] Basic Metabolic Panelon - Anion gap [Moles/Vol] 5 Normal [facility] Comment on above: Performed By: #### B MP3 #### [facility] [address] [place], [place] Calcium [Mass/Vol] 8.3 mg/dL Low 8.4-10.4 [facility] Comment on above: Performed By: #### B MP3 #### [facility] [address], [place] CO2 [Moles/Vol] 24 mmol/L Normal 22-30 [facility] Comment on above: Performed By: #### B MP3 #### [facility] [address] [place], [place] Glucose [Mass/Vol] 90 mg/dL Normal 70-100 [facility] Comment on above: Performed By: #### B MP3 #### [facility] [address] [place] [address] Urea nitrogen [Mass/Vol] 10 mg/dL Normal 7-20 [facility] Comment on above: Performed By: #### B MP3 #### [facility] [address] [place] [address] Creatinine [Mass/Vol] 0.57 mg/dL Normal 0.52-1.25 [facility] Comment on above: Performed By: #### B MP3 #### [address] [address] [place] [address] GFR/1.73 sq M predicted among blacks MDRD (S/P/Bld) [Vol rate/Area] mL/min/{1.73_m2} Normal >60 [facility] Comment on above: Performed By: #### B MP3 #### [place] [address] [address] [place], [place] GFR/1.73 sq M predicted among non-blacks MDRD (S/P/Bld) [Vol rate/Area] mL/min/{1.73_m2} Normal >60 [facility] Comment on above: Result Comment: Sour ce- MDRD equation with creatinine calibration to IDMS(NKDEP) eGFR not recommended for drug dose adjustment Performed By: #### B MP3 #### [facility] [address] [place], [place] Potassium [Moles/Vol] 4.0 mmol/L Normal 3.5-5.1 [facility] Comment on above: Performed By: #### B MP3 #### [facility] [address] [place], [place] Chloride [Moles/Vol] 108 mmol/L High 98-107 [facility] Comment on above: Performed By: #### B MP3 #### [place] [address] [address] [place], [place] Sodium [Moles/Vol] 137 mmol/L Normal 135-145 [facility] Comment on above: Performed By: #### B MP3 #### [address] [address] [place] [address] CR Chest Portableon 09-18-19 20 CR Chest Portable Patient Name: ORTIZ MASON Diagnostic Radiology Exam Date/Time 09/18/2019 15:49:54 EST Exam CR Chest Portable Ordering Physician [id number] NICOLE WILKES Accession Number [id number] CPT4 Codes 47386 () Reason For Exam cough Report CHEST [...] Transcribed Date and Time: 09/18/2019 5:00 Normal [facility] Basic Metabolic Panelon 08-25 Calcium [Mass/Vol] 9.2 mg/dL Normal 8.4-10.4 [facility] Comment on above: Performed By: #### H RUPESH BMP3 #### [address] Glucose [Mass/Vol] 83 mg/dL Normal 70-100 [facility] Comment on above: Performed By: #### H RUPESH BMP3 #### [facility] [address] [place] [address] Urea nitrogen [Mass/Vol] 8 mg/dL Normal 7-20 [facility] Comment on above: Performed By: #### H RUPESH BMP3 #### [address] Anion gap [Moles/Vol] 10 Normal [facility] Comment on above: Performed By: #### H RUPESH BMP3 #### [address] [place], [place] CO2 [Moles/Vol] 23 mmol/L Normal 22-30 [facility] Comment on above: Performed By: #### H RUPESH BMP3 #### [facility] [address] [place], [place] Creatinine [Mass/Vol] 0.53 mg/dL Normal 0.52-1.25 [facility] Comment on above: Performed By: #### H RUPESH BMP3 #### [place] [address] [address] [place], [place] GFR/1.73 sq M predicted among blacks MDRD (S/P/Bld) [Vol rate/Area] mL/min/{1.73_m2} Normal >60 [facility] Comment on above: Performed By: #### H RUPESH BMP3 #### [place] [address] [address] [place], [place] GFR/1.73 sq M predicted among non-blacks MDRD (S/P/Bld) [Vol rate/Area] mL/min/{1.73_m2} Normal >60 [facility] Comment on above: Result Comment: Sour ce- MDRD equation with creatinine calibration to IDMS(NKDEP) eGFR not recommended for drug dose adjustment Performed By: #### H RUPESH BMP3 #### [place] [address] [address] [place], [place] Potassium [Moles/Vol] 4.1 mmol/L Normal 3.5-5.1 [facility] Comment on above: Result Comment: Slig htly hemolysed, interpret with caution. Performed By: #### H RUPESH BMP3 #### [place] [address] [address] [place], [place] Chloride [Moles/Vol] 108 mmol/L High 98-107 [facility] Comment on above: Performed By: #### H RUPESH BMP3 #### [place] [address] [address] [place], [place] Sodium [Moles/Vol] 141 mmol/L Normal 135-145 [facility] Comment on above: Performed By: #### H RUPESH BMP3 #### [facility] [address], [place] Complete Urinalysison 2019 Appearance (U) Clear Normal Clear [facility] Comment on above: Performed By: #### C UA2 #### [place] [address] [address] [place], [place] Bacteria LM.HPF (Urine sed) [#/Area] Negative Normal Negative [facility] Comment on above: Performed By: #### C UA2 #### [place] [address] [address] [place], [place] Bilirubin,Urine Negative Normal Negative [facility] Comment on above: Performed By: #### C UA2 #### [place] [address] [address] [place], [place] Cast, Hyaline Negative Normal Negative [facility] Comment on above: Performed By: #### C UA2 #### [place] [address] [address] [place], [place] Color (U) Yellow Normal Lt. Yellow [facility] Comment on above: Performed By: #### C UA2 #### [place] [address] [address] [place], [place] Glucose Ql (U) Normal Normal Normal (<70) [facility] Comment on above: Performed By: #### C UA2 #### [place] [address] [address] [place], [place] Ketone,Urine Negative Normal Negative [facility] Comment on above: Performed By: #### C UA2 #### [place] [address] [address] [place], [place] Leukocytes,Urine 25 La/uL Normal Negative [facility] Comment on above: Performed By: #### C UA2 #### [place] [address] [address] [place], [place] Mucous Threads Few Normal Negative [facility] Comment on above: Performed By: #### C UA2 #### [place] [address] [address] [place], [place] Nitrites,Urine Negative Normal Negative [facility] Comment on above: Performed By: #### C UA2 #### [place] [address] [address] [place], [place] Occult Blood,Urine 0.06 mg/dL Normal Negative [facility] Comment on above: Performed By: #### C UA2 #### [address] [address] [place], [place] pH (U) 5.0 Normal 5.0-8.0 [facility] Comment on above: Performed By: #### C UA2 #### [place] [address] [address] [place], [place] Protein (U) [Mass/Vol] 20 mg/dL Normal Negative [facility] Comment on above: Performed By: #### C UA2 #### [place] [address] [address] [place], [place] RBC LM.HPF (Urine sed) [#/Area] 6 - 10 Normal 0-2 [facility] Comment on above: Performed By: #### C UA2 #### [place] [address] [address] [place], [place] Specific Mora,Urine 1.021 Normal 1.005-1.030 [facility] Comment on above: Performed By: #### C UA2 #### [address] Squamous Epithelial 0 - 2 Normal 3-5 [facility] Comment on above: Performed By: #### C UA2 #### [place] [address] [address] [place], [place] Urobilinogen,Urine Normal Normal Normal (0-1) [facility] Comment on above: Performed By: #### C UA2 #### [address] WBC LM.HPF (Urine sed) [#/Area] 3 - 5 Normal 0-5 [facility] Comment on above: Performed By: #### C UA2 #### [place] [address] [address] [place], [place] Hemogram w/ Autodiffon 09-17 Abs Baso Cnt 0.0 10*3/uL Normal 0.0-0.2 [facility] Comment on above: Performed By: #### H EMDF BMP3 #### [address] Abs Neutrophile Cnt 5.0 10*3/uL Normal 1.8-7.0 [facility] Comment on above: Performed By: #### H EMDF BMP3 #### [place] [address] [place], [place] Basophils/100 WBC (Bld) 0.6 % Normal 0.0-2.0 [facility] Comment on above: Performed By: #### H EMDEdwin BMP3 #### [address] Eosinophils (Bld) [#/Vol] 0.1 10*3/uL Normal 0.0-0.5 [facility] Comment on above: Performed By: #### H RUPESH BMP3 #### [address] Eosinophils/100 WBC (Bld) 0.8 % Low 1.0-6.0 [facility] Comment on above: Performed By: #### H RUPESH BMP3 #### [address] Erythrocyte distribution width (RBC) [Ratio] 13.5 % Normal 11.5-14.5 [facility] Comment on above: Performed By: #### H EMDEdwin BMP3 #### [place] [address] [address] [place], [place] Granulocytes/100 WBC (Bld) 60.0 % Normal 40.0-80.0 [facility] Comment on above: Performed By: #### H EMDEdwin BMP3 #### [address] Hematocrit (Bld) [Volume fraction] 43.4 % Normal 35.0-47.0 [facility] Comment on above: Performed By: #### H EMDF BMP3 #### [address] Hemoglobin (Bld) [Mass/Vol] 14.6 g/dL Normal 11.7-16.0 [facility] Comment on above: Performed By: #### H RUPESH BMP3 #### [facility] [address] [place] [address] Lymphocytes (Bld) [#/Vol] 2.7 10*3/uL Normal 1.0-4.3 [facility] Comment on above: Performed By: #### H RUPESH BMP3 #### [address] [address] [place] [address] Lymphocytes/100 WBC (Bld) 32.3 % Normal 20.0-40.0 [facility] Comment on above: Performed By: #### H RUPESH BMP3 #### [place] [address] [address] [place], [place] MCH (RBC) [Entitic mass] 32.4 pg Normal 26.0-34.0 [facility] Comment on above: Performed By: #### H RUPESH BMP3 #### [address] [address] [address] [place] [address] MCHC (RBC) [Mass/Vol] 33.7 % Normal 32.0-36.0 [facility] Comment on above: Performed By: #### H RUPESH BMP3 #### [place] [address] [place] [address] MCV (RBC) [Entitic vol] 96.1 fL Normal 79.0-98.0 [facility] Comment on above: Performed By: #### H RUPESH BMP3 #### [place] [address] [place] [address] Monocytes (Bld) [#/Vol] 0.5 10*3/uL Normal 0.0-0.8 [facility] Comment on above: Performed By: #### H RUPESH, BMP3 #### [address] [address] [address] [place] [address] Monocytes/100 WBC (Bld) 6.3 % Normal 2.0-10.0 [facility] Comment on above: Performed By: #### H RUPESH BMP3 #### [facility] [address] [place] [address] Platelet mean volume (Bld) [Entitic vol] 8.8 fL Normal 7.4-10.4 [facility] Comment on above: Performed By: #### H EMDF, BMP3 #### [facility] [address] [place] [address] Platelets (Bld) [#/Vol] 284 10*3/uL Normal 140-440 [facility] Comment on above: Performed By: #### H EMDF, BMP3 #### [facility] [address] [place] [address] RBC (Bld) [#/Vol] 4.52 10*6/uL Normal 3.80-5.20 [facility] Comment on above: Performed By: #### H EMDF, BMP3 #### [facility] [address] [place] [address] WBC (Bld) [#/Vol] 8.3 10*3/uL Normal 3.6-10.7 [facility] Comment on above: Performed By: #### H EMDF, BMP3 #### [facility] [address] [place] [address] Basic Metabolic Panelon 01-2 Anion gap [Moles/Vol] 8 Normal [facility] Comment on above: Performed By: #### H EMDF, BMP3 #### [facility] [address] [place] [address] Calcium [Mass/Vol] 10.0 mg/dL Normal 8.4-10.4 [facility] Comment on above: Performed By: #### H EMDF, BMP3 #### [facility] [address] [place] [address] CO2 [Moles/Vol] 27 mmol/L Normal 22-30 [facility] Comment on above: Performed By: #### H EMDF, BMP3 #### [facility] [address] [place] [address] Glucose [Mass/Vol] 87 mg/dL Normal 70-100 [facility] Comment on above: Performed By: #### H RUPESH BMP3 #### [facility] [address] [place] [address] Urea nitrogen [Mass/Vol] 13 mg/dL Normal 7-20 [facility] Comment on above: Performed By: #### H RUPESH BMP3 #### [facility] [address] [place] [address] Creatinine [Mass/Vol] 0.73 mg/dL Normal 0.52-1.25 [facility] Comment on above: Performed By: #### H RUPESH BMP3 #### [facility] [address] [place] [address] GFR/1.73 sq M predicted among blacks MDRD (S/P/Bld) [Vol rate/Area] mL/min/{1.73_m2} Normal >60 [facility] Comment on above: Performed By: #### H RUPESH BMP3 #### [facility] [address] [place] [address] GFR/1.73 sq M predicted among non-blacks MDRD (S/P/Bld) [Vol rate/Area] mL/min/{1.73_m2} Normal >60 [facility] Comment on above: Result Comment: Sour ce- MDRD equation with creatinine calibration to IDMS(NKDEP) eGFR not recommended for drug dose adjustment Performed By: #### H RUPESH BMP3 #### [facility] [address] [place] [address] Chloride [Moles/Vol] 105 mmol/L Normal 98-107 [facility] Comment on above: Performed By: #### H RUPESH BMP3 #### [facility] [address] [place] [address] Potassium [Moles/Vol] 5.1 mmol/L Normal 3.5-5.1 [facility] Comment on above: Performed By: #### H RUPESH, BMP3 #### [facility] [address] [place] [address] Sodium [Moles/Vol] 141 mmol/L Normal 135-145 [facility] Comment on above: Performed By: #### H [facility], BMP3 #### [facility] [address] [place] [address] Basic Metabolic PanelOrdered By: Ari Sotomayor on [...] mg/dL [facility] Work Phone: EGFR IF NonAfrican Palestinian >60.0 >60 mL/min [facility] Work Phone: [phone] Comment on above: Source- MDRD equatio n with creatinine calibration to IDMS(NKDEP) eGFR not recommended for drug dose adjustment GFR/1.73 sq M.predicted among blacks MDRD (S/P/Bld) [Vol rate/Area] mL/min/{1.73_m2} >60 mL/min [facility] Work Phone: Glucose [Mass/Vol] 87 mg/dL 70 - 100 mg/dL [facility] Work Phone: Potassium [Moles/Vol] 5.1 mmol/L 3.5 - 5.1 mmol/L [facility] Work Phone: Sodium [Moles/Vol] 141 mmol/L 135 - 145 mmol/L [facility] Work Phone: Urea nitrogen [Mass/Vol] 13 mg/dL 7 - 20 mg/dL [facility] Work Phone: Test Performed by [facility], [address] , [place], [place] [address] [facility] Work Phone: CBC Auto DifferentialOrdered By: Ari Sotomayor on 09-13-2019 Absolute Baso # 0.1 10*3/uL 0 - 0.2 10*3/uL [facility] Work Phone: [phone] Absolute Neut # 4.2 10*3/uL 1.8 - 7 10*3/uL [facility] Work Phone: [phone] Basophils/100 WBC (Bld) 0.8 % 0 - 2 % S [employer] Work Phone: [phone] Eosinophils (Bld) [#/Vol] 0.1 10*3/uL 0 - 0.5 10*3/uL [employer] Work Phone: [phone] Eosinophils/100 WBC (Bld) 0.9 % Low 1 - 6 % [employer] Work Phone: [phone] Erythrocyte distribution width (RBC) [Ratio] 13.7 % 11.5 - 14.5 % [employer] Work Phone: [phone] Granulocytes/100 WBC (Bld) 58.8 % 40 - 80 % [employer] Work Phone: [phone] Hematocrit (Bld) [Volume fraction] 49.8 % High 35 - 47 % [employer] Work Phone: [phone] Hemoglobin (Bld) [Mass/Vol] 16.6 g/dL High 11.7 - 16 g/dL [employer] Work Phone: [phone] Interpretation and review of laboratory results Abnormal [employer] Work Phone: [phone] Lymphocytes (Bld) [#/Vol] 2.2 10*3/uL 1 - 4.3 10*3/uL [employer] Work Phone: [phone] Lymphocytes/100 WBC (Bld) 31.2 % 20 - 40 % [employer] Work Phone: [phone] MCH (RBC) [Entitic mass] 32.4 pg 26 - 34 pg [employer] Work Phone: [phone] MCHC 33.4 % 32 - 36 % [employer] Work Phone: [phone] MCV (RBC) [Entitic vol] 97.0 fL 79 - 98 fL S [employer] Work Phone: [phone] Monocytes (Bld) [#/Vol] 0.6 10*3/uL 0 - 0.8 10*3/uL [employer] Work Phone: Monocytes/100 WBC (Bld) 8.3 % 2 - 10 % S [facility] Work Phone: [phone] Platelet mean volume (Bld) [Entitic vol] 7.9 fL 7.4 - 10.4 fL [employer] Work Phone: [phone] Platelets (Bld) [#/Vol] 337 10*3/uL 140 - 440 10*3/uL [facility] Work Phone: [phone] RBC (Bld) [#/Vol] 5.14 10*6/uL 3.8 - 5.2 10*6/uL [facility] Work Phone: WBC (Bld) [#/Vol] 7.1 10*3/uL 3.6 - 10.7 10*3/uL [facility] Work Phone: Test Performed by [facility], [address] [place] [address] [place] [address] [employer] Work Phone: [phone] CT Abdomen Pelvis Wo Contras tOrdered By: Ari Sotomayor on 09-13-2019 Patient Name: ORTIZ MASON ---CT--- Exam Date/Time 09/13/2019 13:43:[address] Abdomen/Pelvis (No PO, No IV) Ordering Physician DO SOTOMAYOR PAUL E. Accession Number [id number] CPT4 Codes 11019 (CT Abdomen/Pelvis (No PO, No IV)) Reason [...] Phone: [facility], [facility] Incoming Radiology Results From Replaced By [facility] - 09/13/2019 1:57 PM EST Patient Name: ORTIZ MASON ---CT--- Exam Date/Time 09/13/2019 13:43:[address] Abdomen/Pelvis (No PO, No IV) Ordering Physician DO SOTOMAYOR PAUL E. Accession Number [id number] CPT4 Codes 46936 (CT Abdomen/Pelvis (No PO, No IV)) Reason [...] [facility] Work Phone: CT Abdomen/Pelvis w/o Contra sienna 09-13-2019 CT Abdomen/Pelvis w/o Contrast Patient Name: ORTIZ MASON CT Exam Date/Time 09/13/2019 13:43:[address] Abdomen/Pelvis (No PO, No IV) Ordering Physician DO SOTOMAYOR PAUL E. Accession Number [id number] CPT4 Codes 66808 (CT Abdomen/Pelvis (No PO, No IV)) Reason [...] Transcribed Date and Time: 09/13/2019 1:57 Normal [facility] Hemogram w/ Autodiffon 09-13 Abs Baso Cnt 0.1 10*3/uL Normal 0.0-0.2 [facility] Comment on above: Performed By: #### H RUPESH BMP3 #### [facility] [address] [place] [address] Abs Neutrophile Cnt 4.2 10*3/uL Normal 1.8-7.0 [facility] Comment on above: Performed By: #### H RUPEHS BMP3 #### [facility] [address] [place] [address] Basophils/100 WBC (Bld) 0.8 % Normal 0.0-2.0 [facility] Comment on above: Performed By: #### H RUPESH BMP3 #### [facility] [address] [place] [address] Eosinophils (Bld) [#/Vol] 0.1 10*3/uL Normal 0.0-0.5 [facility] Comment on above: Performed By: #### H EMDF, BMP3 #### [facility] [address] [place] [address] Eosinophils/100 WBC (Bld) 0.9 % Low 1.0-6.0 [facility] Comment on above: Performed By: #### H EMDF, BMP3 #### [facility] [address] [place] [address] Erythrocyte distribution width (RBC) [Ratio] 13.7 % Normal 11.5-14.5 [facility] Comment on above: Performed By: #### H EMDF, BMP3 #### [facility] [address] [place] [address] Granulocytes/100 WBC (Bld) 58.8 % Normal 40.0-80.0 [facility] Comment on above: Performed By: #### H EMDF, BMP3 #### [facility] [address] [place] [address] Hematocrit (Bld) [Volume fraction] 49.8 % High 35.0-47.0 [facility] Comment on above: Performed By: #### H EMDF, BMP3 #### [facility] [address] [place] [address] Hemoglobin (Bld) [Mass/Vol] 16.6 g/dL High 11.7-16.0 [facility] Comment on above: Performed By: #### H EMDF, BMP3 #### [facility] [address] [place] [address] Lymphocytes (Bld) [#/Vol] 2.2 10*3/uL Normal 1.0-4.3 [facility] Comment on above: Performed By: #### H EMDF, BMP3 #### [facility] [facility] [address] [place] [address] Lymphocytes/100 WBC (Bld) 31.2 % Normal 20.0-40.0 [facility] Comment on above: Performed By: #### H EMDF, BMP3 #### [facility] [address] [place] [address] MCH (RBC) [Entitic mass] 32.4 pg Normal 26.0-34.0 [facility] Comment on above: Performed By: #### H RUPESH BMP3 #### [facility] [address] [place] [address] MCHC (RBC) [Mass/Vol] 33.4 % Normal 32.0-36.0 [facility] Comment on above: Performed By: #### H RUPESH BMP3 #### [facility] [address] [place] [address] MCV (RBC) [Entitic vol] 97.0 fL Normal 79.0-98.0 S [facility] Comment on above: Performed By: #### H RUPESH BMP3 #### [facility] [address] [place] [address] Monocytes (Bld) [#/Vol] 0.6 10*3/uL Normal 0.0-0.8 [facility] Comment on above: Performed By: #### H RUPESH BMP3 #### [facility] [address] [place] [address] Monocytes/100 WBC (Bld) 8.3 % Normal 2.0-10.0 S [facility] Comment on above: Performed By: #### Krystyna GODDARD BMP3 #### [facility] [address] [place] [address] Platelet mean volume (Bld) [Entitic vol] 7.9 fL Normal 7.4-10.4 [facility] Comment on above: Performed By: #### H RUPESH BMP3 #### [facility] [address] [place] [address] Platelets (Bld) [#/Vol] 337 10*3/uL Normal 140-440 [facility] Comment on above: Performed By: #### H RUPESH BMP3 #### [facility] [address] [place] [address] RBC (Bld) [#/Vol] 5.14 10*6/uL Normal 3.80-5.20 [facility] Comment on above: Performed By: #### H RUPESH BMP3 #### [facility] [address] [place] [address] WBC (Bld) [#/Vol] 7.1 10*3/uL Normal 3.6-10.7 [facility] Comment on above: Performed By: #### H TOBY GODDARD3 #### [facility] [address] [place] [address] Gastrointestinal Panel by FERNANDO Le 05-13-2019 Gastrointestinal PCR Panel NEGATIVE: No targets were detected by the [employer] Gastrointestinal PCR Panel. The [employer] Gastrointestinal PCR Panel detects the following targets: [...] assay can be ordered separately with CDPCR ([id number]). [place], [place] Test Performed by [facility], [address] [place] [id number] Specimen Source Comment:Stool [place], [place] Basic Metabolic Panelon 04-24 Anion gap [Moles/Vol] 9 mmol/L [place], [place] Calcium [Mass/Vol] 9.5 mg/dL 8.4 - 10. 4 mg/dL [place] Chloride [Moles/Vol] 108 mmol/L High 98 - 10 7 mmol/L [place] CO2 [Moles/Vol] 25 mmol/L 22 - 30 mmol/L [place] Creatinine [Mass/Vol] 0.61 mg/dL 0.52 - 1.25 mg/dL [place] EGFR IF NonAfrican Palestinian >60.0 >60 mL/min [place] Comment on above: Source- MDRD equatio n with creatinine calibration to IDMS(NKDEP) eGFR not recommended for drug dose adjustment GFR/1.73 sq M predicted among blacks MDRD (S/P/Bld) [Vol rate/Area] mL/min/{1.73_m2} >60 mL/min [place] Glucose [Mass/Vol] 95 mg/dL 70 - 100 mg/dL [place] Interpretation and review of laboratory results Abnormal [place] Potassium [Moles/Vol] 4.2 mmol/L 3.5 - 5.1 mmol/L [place] Sodium [Moles/Vol] 142 mmol/L 135 - 145 mmol/L [place] Urea nitrogen [Mass/Vol] 10 mg/dL 7 - 20 mg/dL [place] C-Reactive Proteinon 019 CRP [Mass/Vol] 6 mg/L 0 - 6 mg/L [place] Comment on above: . Hemogram (CBC) w/Auto Diffon 05-12-2019 Absolute Baso # 0.1 10*3/uL 0 - 0.2 10*3/uL [place] Absolute Neut # 4.0 10*3/uL 1.8 - 7 10*3/uL [place] Basophils/100 WBC (Bld) 1.3 % 0 - 2 % M [place] Eosinophils (Bld) [#/Vol] 0.1 10*3/uL 0 - 0.5 10*3/uL [place] Eosinophils/100 WBC (Bld) 1.3 % 1 - 6 % [place] Erythrocyte distribution width (RBC) [Ratio] 13.6 % 11.5 - 14.5 % [place] Granulocytes/100 WBC (Bld) 51.3 % 40 - 80 % [place] Hematocrit (Bld) [Volume fraction] 43.6 % 35 - 47 % [place] Hemoglobin (Bld) [Mass/Vol] 15.1 g/dL 11.7 - 16 g/dL [place] Lymphocytes (Bld) [#/Vol] 3.0 10*3/uL 1 - 4.3 10*3/uL [place] Lymphocytes/100 WBC (Bld) 38.2 % 20 - 40 % [place] MCH (RBC) [Entitic mass] 31.8 pg 26 - 34 pg [place] MCHC (RBC) [Mass/Vol] 34.5 % 32 - 36 % [place] MCV (RBC) [Entitic vol] 92.1 fL 79 - 98 fL [place] Monocytes (Bld) [#/Vol] 0.6 10*3/uL 0 - 0.8 10*3/uL [place] Monocytes/100 WBC (Bld) 7.9 % 2 - 10 % [place] Platelet mean volume (Bld) [Entitic vol] 8.5 fL 7.4 - 10.4 fL [place] Platelets (Bld) [#/Vol] 281 10*3/uL 140 - 440 10*3/uL [place] RBC (Bld) [#/Vol] 4.74 10*6/uL 3.8 - 5.2 10*6/uL [place] WBC (Bld) [#/Vol] 7.9 10*3/uL 3.6 - 10.7 10*3/uL [place] Test Performed by [address] Otheron 05-12-2019 Test Performed by [id number] [place] [address] Protime-INRon 05-12-2019 INR Coag (PPP) [Relative time] 1.0 {INR} [place] Comment on above: Recommended Anticoag ulant [...] [Time] 10.2 s 9 - 12 s [place], [place] Comment on above: . Test Performed by [facility], [address] [place] [place] [address] [place], [place] Sedimentation Rateon 019 Sed Rate 2 mm/h 0 - 20 mm/h [place] Test Performed by [facility], [address] [place] [address] [place] XR HIP LEFT (2-3 VIEWS)on [facility] 11:11 PM EDT Patient Name: ORTIZ MASON ---Diagnostic Radiology--- Exam Date/Time 05/12/2019 23:05:44 EDT Exam CR Hip w/ Pelvis 2 or 3 Views Left n Ordering Physician BEVERLY GARCIA Accession Number [id number] CPT4 Codes 02081 () Reason For Exam pain Report PELVIS [...] 2. Postsurgical change. Report Dictated on Workstation: [email or web address] --- Final --- Dictated: 05/12/2019 11:07 pm Dictating Physician: MD VALLEJO WENDELL Signed Date and Time: 05/12/2019 11:10 pm Signed by: MD VALLEJO WENDELL Transcribed Date and Time: 05/12/2019 11:07 [place] Patient Name: ORTIZ MASON ---Diagnostic Radiology--- Exam Date/Time 05/12/2019 23:05:44 EDT Exam CR Hip w/ Pelvis 2 or 3 Views Left n Ordering Physician BEVERLY GARCIA Accession Number [id number] CPT4 Codes 98049 () Reason For Exam pain Report PELVIS [...] WENDELL Transcribed Date and Time: 05/12/2019 11:07 [facility], [place] XR LUMBAR SPINE (2-3 VIEWS)o n 05-12-2019 [facility], [facility] Incoming Radiology Results From Replaced By [facility] - 05/12/2019 11:17 PM EDT Patient Name: ORTIZ MASON ---Diagnostic Radiology--- Exam Date/Time 05/12/2019 23:06:10 EDT Exam CR Spine Lumbosacral 2 or 3 Views Ordering Physician [id number] BEVERLY CASON Accession Number [id number] CPT4 Codes 64293 () Reason For Exam pain flexion and [...] WENDELL Transcribed Date and Time: 05/12/2019 11:12 [place] Patient Name: ORTIZ MASON ---Diagnostic Radiology--- Exam Date/Time 05/12/2019 23:06:10 EDT Exam CR Spine Lumbosacral 2 or 3 Views Ordering Physician [id number] BEVERLY CASON Accession Number [id number] CPT4 Codes 50067 () Reason For Exam pain flexion and [...] and degenerative change. Report Dictated on Workstation: [email or web address] --- Final --- Dictated: 05/12/2019 11:12 pm Dictating Physician: MD VALLEJO WENDELL Signed Date and Time: 05/12/2019 11:16 pm Signed by: MD VALLEJO WENDELL Transcribed Date and Time: 05/12/2019 11:12 [place] [facility] Incoming Radiology Results From Replaced By [facility] - 05/12/2019 9:21 PM EDT Patient Name: ORTIZ MASON ---Diagnostic Radiology--- Exam Date/Time 05/12/2019 21:15:55 EDT Exam CR Spine Lumbosacral 2 or 3 Views Ordering Physician [id number] ANGEL RAMOS Accession Number [id number] CPT4 Codes 40541 () Reason For Exam lumbar pain, hx [...] NICHOLAS Transcribed Date and Time: 05/12/2019 9:16 [place] Patient Name: ORTIZ MASON ---Diagnostic Radiology--- Exam Date/Time 05/12/2019 21:15:55 EDT Exam CR Spine Lumbosacral 2 or 3 Views Ordering Physician [id number] ANGEL RAMOS Accession Number [id number] CPT4 Codes 52031 () Reason For Exam lumbar pain, hx [...] NICHOLAS Transcribed Date and Time: 05/12/2019 9:16 [facility], [place] COVID-19 virus antigen assay SARS-CoV-2 (COVID-19) Ag IA.rapid Ql (Resp) [facility] Work Phone: No Panel Information Influenza Types A,B Direct FA (CRAIG) [facility] Work Phone: Vital Signs Date Time Vital Sign Value Performing Clinician Facility 04-14-2025 09:15-0400 Body temperature 98.4 [degF] Dr. Amandeep Loredo DO Work Phone: [facility] 04-14-2025 09:15-0400 Diastolic blood pressure 82 mm[Hg] Dr. Amandeep Loredo DO Work Phone: [facility] 04-14-2025 09:15-0400 Heart rate 66 /min Dr. Amandeep Loredo DO Work Phone: [facility] 04-14-2025 09:15-0400 Respiratory rate 16 /min Dr. Amandeep Loredo DO Work Phone: [facility] 04-14-2025 09:15-0400 SaO2% (BldA) [Mass fraction] 95 % Dr. Amandeep Loredo DO Work Phone: [facility] 04-14-2025 09:15-0400 Systolic blood pressure 138 mm[Hg] Dr. Amandeep Loredo DO Work Phone: [facility] 04-14-2025 07:39-0400 Body mass index (BMI) [Ratio] 28 kg/m2 Dr. Amandeep Loredo DO Work Phone: [facility] 04-14-2025 07:39-0400 Body weight [address] Amandeep Loredo DO Work Phone: [facility] 04-14-2025 07:36-0400 Body height 175.[address] Amandeep Loredo DO Work Phone: [facility] 03-14-2025 15:50-0400 Body temperature 97.5 [degF] Dr. Amandeep Loredo DO Work Phone: [facility] 03-14-2025 15:50-0400 Diastolic blood pressure 83 mm[Hg] Dr. Amandeep Loredo DO Work Phone: [facility] 03-14-2025 15:50-0400 Heart rate 70 /min Dr. Amandeep Loredo DO Work Phone: [facility] 03-14-2025 15:50-0400 Respiratory rate 16 /min Dr. Amandeep Loredo DO Work Phone: [facility] 03-14-2025 15:50-0400 SaO2% (BldA) [Mass fraction] 99 % Dr. Amandeep Loredo DO Work Phone: [facility] 03-14-2025 15:50-0400 Systolic blood pressure 117 mm[Hg] Dr. Amandeep Loredo DO Work Phone: [facility] 03-14-2025 13:58-0400 Body height 175.[address] Amandeep Loredo DO Work Phone: [facility] 03-14-2025 13:58-0400 Body mass index (BMI) [Ratio] 26.9 kg/m2 Dr. Amandeep Loredo DO Work Phone: [facility] 03-14-2025 13:58-0400 Body weight 82.[address] Amandeep Loredo DO Work Phone: [facility] 01-05-2025 19:49-0400 Heart rate 88 /min Dr. Amandeep Loredo DO Work Phone: [facility] 01-05-2025 19:49-0400 Respiratory rate 18 /min Dr. Amandeep Loredo DO Work Phone: [facility] 01-05-2025 19:49-0400 SaO2% (BldA) [Mass fraction] 100 % Dr. Amandeep Loredo DO Work Phone: [facility] 01-05-2025 19:48-0400 Body mass index (BMI) [Ratio] 28.9 kg/m2 Dr. Amandeep Loredo DO Work Phone: [facility] 01-05-2025 19:48-0400 Body weight 88.[address] Amandeep Loredo DO Work Phone: [facility] 01-05-2025 18:20-0400 Diastolic blood pressure 73 mm[Hg] Dr. Amandeep Loredo DO Work Phone: [facility] 01-05-2025 18:20-0400 Systolic blood pressure 110 mm[Hg] Dr. Amandeep Loredo DO Work Phone: [facility] 01-05-2025 16:57-0400 Body height 175.[address] Amandeep Loredo DO Work Phone: [facility] 01-05-2025 16:57-0400 Body temperature 96.9 [degF] Dr. Amandeep Loredo DO Work Phone: [facility] 10-21-2024 00:35-0500 Body temperature 98.1 [degF] Dr. Amandeep Loredo DO Work Phone: [facility] 10-21-2024 00:35-0500 Diastolic blood pressure 79 mm[Hg] Dr. Amandeep Loredo DO Work Phone: [facility] 10-21-2024 00:35-0500 Heart rate 69 /min Dr. Amandeep Loredo DO Work Phone: [facility] 10-21-2024 00:35-0500 Respiratory rate 18 /min Dr. Amandeep Loredo DO Work Phone: [facility] 10-21-2024 00:35-0500 SaO2% (BldA) [Mass fraction] 99 % Dr. Amandeep Loredo DO Work Phone: [facility] 10-21-2024 00:35-0500 Systolic blood pressure 155 mm[Hg] Dr. Amandeep Loredo DO Work Phone: [facility] 10-20-2024 20:13-0500 Body mass index (BMI) [Ratio] 28 kg/m2 Dr. Amandeep Loredo DO Work Phone: [facility] 10-20-2024 20:13-0500 Body weight 86.[address] Amandeep Loredo DO Work Phone: [facility] 12-01-2023 04:06-0400 Body temperature 99.4 [degF] [facility] 12-01-2023 04:06-0400 Diastolic blood pressure 81 mm[Hg] [facility] 12-01-2023 04:06-0400 Heart rate 98 /min [facility] 12-01-2023 04:06-0400 Respiratory rate 16 /min [facility] 12-01-2023 04:06-0400 SaO2% (BldA) [Mass fraction] 97 % [facility] 12-01-2023 04:06-0400 Systolic blood pressure 165 mm[Hg] [facility] 12-01-2023 02:07-0400 Body height 172.72 cm [facility] 12-01-2023 02:07-0400 Body mass index (BMI) [Ratio] 26.7 kg/m2 [facility] 12-01-2023 02:07-0400 Body weight 79.9 kg [facility] 11-18-2023 19:22-0400 Body temperature 98.6 [degF] [facility] 11-18-2023 19:22-0400 Diastolic blood pressure 80 mm[Hg] [facility] 11-18-2023 19:22-0400 Heart rate 92 /min [facility] 11-18-2023 19:22-0400 Respiratory rate 22 /min [facility] 11-18-2023 19:22-0400 SaO2% (BldA) [Mass fraction] 99 % [facility] 11-18-2023 19:22-0400 Systolic blood pressure 145 mm[Hg] [facility] 11-18-2023 18:49-0400 Body mass index (BMI) [Ratio] 27.5 kg/m2 [facility] 11-18-2023 18:49-0400 Body weight 82.1 kg [facility] 11-18-2023 18:42-0400 Body height 172.72 cm [facility] 10-07-2023 22:09-0500 Body temperature 96.5 [degF] [facility] 10-07-2023 22:09-0500 Diastolic blood pressure 84 mm[Hg] [facility] 10-07-2023 22:09-0500 Heart rate 78 /min [facility] 10-07-2023 22:09-0500 Respiratory rate 18 /min [facility] 10-07-2023 22:09-0500 SaO2% (BldA) [Mass fraction] 99 % [facility] 10-07-2023 22:09-0500 Systolic blood pressure 140 mm[Hg] [facility] 10-07-2023 19:11-0500 Body height 172.72 cm [facility] 10-07-2023 19:11-0500 Body mass index (BMI) [Ratio] 26.8 kg/m2 [facility] 10-07-2023 19:11-0500 Body weight 80 kg [facility] 07-27-2023 16:31-0500 Body height 172.7 cm Amandeep Loredo DO Work Phone: [facility] 07-27-2023 16:31-0500 Body mass index (BMI) [Ratio] 27.22 kg/m2 Amandeep Loredo DO Work Phone: [facility] 07-27-2023 16:31-0500 Body temperature 97.81 [degF] Amandeep Loredo DO Work Phone: [facility] 07-27-2023 16:31-0500 Body weight 81.19 kg Amandeep Loredo DO Work Phone: [facility] 07-27-2023 16:31-0500 Diastolic blood pressure 78 mm[Hg] Amandeep Loredo DO Work Phone: [facility] 07-27-2023 16:31-0500 Heart rate 98 /min Amandeep Loredo DO Work Phone: [facility] 07-27-2023 16:31-0500 SaO2% (BldA) [Mass fraction] 95 % Amandeep Loredo DO Work Phone: [facility] 07-27-2023 16:31-0500 Systolic blood pressure 130 mm[Hg] Amandeep Loredo DO Work Phone: [facility] 03-06-2023 01:20-0400 Diastolic Blood Pressure Non-Invasive 78 1 BELINDA COVARRUBIAS MD [facility] 03-06-2023 01:20-0400 Heart rate 85 /min BELINDA COVARRUBIAS MD [facility] 03-06-2023 01:20-0400 Respiratory rate 16 /min BELINDA COVARRUBIAS MD [facility] 03-06-2023 01:20-0400 Systolic Blood Pressure Non-Invasive 118 1 BELINDA COVARRUBIAS MD [facility] 03-05-2023 22:56-0400 Body height 172.7 cm BELINDA COVARRUBIAS MD [facility] 03-05-2023 22:56-0400 Body temperature 98.24 [degF] BELINDA COVARRUBIAS MD [facility] 03-05-2023 22:56-0400 Body weight 72.7 kg BELINDA COVARRUBIAS MD [facility] 03-05-2023 22:56-0400 Diastolic Blood Pressure Non-Invasive 79 1 BELINDA COVARRUBIAS MD [facility] 03-05-2023 22:56-0400 Heart rate 95 /min BELINDA COVARRUBIAS MD [facility] 03-05-2023 22:56-0400 Respiratory rate 16 /min BELINDA COVARRUBIAS MD [facility] 03-05-2023 22:56-0400 Systolic Blood Pressure Non-Invasive 112 1 BELINDA COVARRUBIAS MD [facility] 02-15-2023 17:09-0400 Body height 172.72 cm [facility] 02-15-2023 17:09-0400 Body mass index (BMI) [Ratio] 27.1 kg/m2 [facility] 02-15-2023 17:09-0400 Body temperature 96.4 [degF] [facility] 02-15-2023 17:09-0400 Body weight 80.83 kg [facility] 02-15-2023 17:09-0400 Diastolic blood pressure 78 mm[Hg] [facility] 02-15-2023 17:09-0400 Heart rate 82 /min [facility] 02-15-2023 17:09-0400 Respiratory rate 16 /min [facility] 02-15-2023 17:09-0400 SaO2% (BldA) [Mass fraction] 98 % [facility] 02-15-2023 17:09-0400 Systolic blood pressure 118 mm[Hg] [facility] 11-27-2022 07:37-0400 Diastolic blood pressure 76 mm[Hg] Earl Parson MD Work Phone: [facility] 11-27-2022 07:37-0400 Heart rate 67 /min Earl Parson MD Work Phone: [facility] 11-27-2022 07:37-0400 Systolic blood pressure 117 mm[Hg] Earl Parson MD Work Phone: [facility] 11-27-2022 07:34-0400 Body temperature 96.21 [degF] Earl Parson MD Work Phone: [facility] 11-27-2022 07:34-0400 Respiratory rate 16 /min Earl Parson MD Work Phone: [facility] 11-27-2022 07:34-0400 SaO2% (BldA) [Mass fraction] 97 % Earl Parson MD Work Phone: [facility] 11-26-2022 14:59-0400 Body height 172.7 cm Earl Parson MD Work Phone: [facility] 11-26-2022 14:59-0400 Body mass index (BMI) [Ratio] 25.85 kg/m2 Earl Parson MD Work Phone: [facility] 11-26-2022 14:59-0400 Body weight 77.11 kg Earl Parson MD Work Phone: [facility] 11-25-2022 09:00-0400 Diastolic blood pressure 80 mm[Hg] Ha Dona PA-C Work Phone: [facility] 11-25-2022 09:00-0400 Systolic blood pressure 147 mm[Hg] Ha Dona PA-C Work Phone: [facility] 11-25-2022 08:48-0400 Body height 172.7 cm Ha Dona PA-C Work Phone: [facility] 11-25-2022 08:48-0400 Body mass index (BMI) [Ratio] 27.22 kg/m2 Ha Dona PA-C Work Phone: [facility] 11-25-2022 08:48-0400 Body weight 81.19 kg Ha Dona PA-C Work Phone: [facility] 11-25-2022 08:48-0400 Heart rate 103 /min Ha Dona PA-C Work Phone: [facility] 11-16-2022 22:39-0400 Body mass index (BMI) [Ratio] 28.3 kg/m2 [facility] 11-16-2022 22:39-0400 Body weight 84.4 kg [facility] 11-16-2022 21:10-0400 Body height 172.72 cm [facility] 11-16-2022 21:10-0400 Body temperature 98 [degF] [facility] 11-16-2022 21:10-0400 Diastolic blood pressure 79 mm[Hg] [facility] 11-16-2022 21:10-0400 Heart rate 101 /min [facility] 11-16-2022 21:10-0400 Respiratory rate 15 /min [facility] 11-16-2022 21:10-0400 SaO2% (BldA) [Mass fraction] 95 % [facility] 11-16-2022 21:10-0400 Systolic blood pressure 133 mm[Hg] [facility] 11-10-2022 09:46-0400 Body temperature 98.8 [degF] Kenny Serna MD Work Phone: [facility] 11-10-2022 09:46-0400 Diastolic blood pressure 67 mm[Hg] Kenny Serna MD Work Phone: [facility] 11-10-2022 09:46-0400 Heart rate 104 /min Kenny Serna MD Work Phone: [facility] 11-10-2022 09:46-0400 SaO2% (BldA) [Mass fraction] 93 % Kenny Serna MD Work Phone: [facility] 11-10-2022 09:46-0400 Systolic blood pressure 116 mm[Hg] Kenny Serna MD Work Phone: [facility] 11-09-2022 20:22-0400 Respiratory rate 18 /min Kenny Serna MD Work Phone: [facility] 11-06-2022 10:43-0400 Body height 172.7 cm Kenny Serna MD Work Phone: [facility] 11-06-2022 10:43-0400 Body mass index (BMI) [Ratio] 27.22 kg/m2 Kenny Serna MD Work Phone: [facility] 11-06-2022 10:43-0400 Body weight 81.19 kg Kenny Serna MD Work Phone: [facility] 10-30-2022 08:45-0500 Diastolic blood pressure 84 mm[Hg] Amandeep Loredo DO Work Phone: [facility] 10-30-2022 08:45-0500 Heart rate 76 /min Amandeep Loredo DO Work Phone: [facility] 10-30-2022 08:45-0500 Systolic blood pressure 126 mm[Hg] Amandeep Loredo DO Work Phone: [facility] 10-30-2022 07:55-0500 Body height 174 cm Amandeep Loredo DO Work Phone: [facility] 10-30-2022 07:55-0500 Body mass index (BMI) [Ratio] 26.67 kg/m2 Amandeep Loredo DO Work Phone: [facility] 10-30-2022 07:55-0500 Body temperature 97.11 [degF] Amandeep Loredo DO Work Phone: [facility] 10-30-2022 07:55-0500 Body weight 80.74 kg Amandeep Loredo DO Work Phone: [facility] 10-30-2022 07:55-0500 SaO2% (BldA) [Mass fraction] 94 % Amandeep Loredo DO Work Phone: [facility] 10-14-2022 20:17-0500 Body mass index (BMI) [Ratio] 27.6 kg/m2 Dr. Ari Sotomayor Work Phone: [facility] 10-14-2022 20:17-0500 Body weight 82.[address] Ari Sotomayor Work Phone: [facility] 10-14-2022 20:13-0500 Body height 172.[address] Ari Sotomayor Work Phone: [facility] 10-14-2022 20:13-0500 Body temperature 98.6 [degF] Dr. Ari Sotomayor Work Phone: [facility] 10-14-2022 20:13-0500 Diastolic blood pressure 100 mm[Hg] Dr. Ari Sotomayor Work Phone: [facility] 10-14-2022 20:13-0500 Heart rate 95 /min Dr. Ari Sotomayor Work Phone: [facility] 10-14-2022 20:13-0500 Respiratory rate 16 /min Dr. Ari Sotomayor Work Phone: [facility] 10-14-2022 20:13-0500 SaO2% (BldA) [Mass fraction] 98 % Dr. Ari Sotomayor Work Phone: [facility] 10-14-2022 20:13-0500 Systolic blood pressure 161 mm[Hg] Dr. Ari Sotomayor Work Phone: [facility] 10-13-2022 08:38-0500 Body height 174 cm Kenny Serna MD Work Phone: [facility] 10-13-2022 08:38-0500 Body mass index (BMI) [Ratio] 25.47 kg/m2 Kenny Serna MD Work Phone: [facility] 10-13-2022 08:38-0500 Body weight 77.11 kg Kenny Serna MD Work Phone: [facility] 10-03-2022 11:00-0500 Diastolic blood pressure 90 mm[Hg] Kenny Serna MD Work Phone: [facility] 02-10-2023 11:00-0500 Heart rate 100 /min Kenny Serna MD Work Phone: [facility] 10-03-2022 11:00-0500 SaO2% (BldA) [Mass fraction] 97 % Kenny Serna MD Work Phone: [facility] 10-03-2022 11:00-0500 Systolic blood pressure 151 mm[Hg] Kenny Serna MD Work Phone: [facility] 10-03-2022 08:43-0500 Respiratory rate 12 /min Kenny Serna MD Work Phone: [facility] 10-03-2022 06:58-0500 Body temperature 97 [degF] Kenny Serna MD Work Phone: [facility] 09-23-2022 17:12-0500 Diastolic blood pressure 89 mm[Hg] Dr. Ari Sotomayor Work Phone: [facility] 09-23-2022 17:12-0500 Heart rate 87 /min Dr. Ari Sotomayor Work Phone: [facility] 09-23-2022 17:12-0500 Respiratory rate 17 /min Dr. Ari Sotomayor Work Phone: [facility] [facility] 09-23-2022 17:12-0500 SaO2% (BldA) [Mass fraction] 96 % Dr. Ari Sotomayor Work Phone: [facility] 09-23-2022 17:12-0500 Systolic blood pressure 152 mm[Hg] Dr. Ari Sotomayor Work Phone: [facility] 09-23-2022 13:11-0500 Body height 175.[address] Ari Sotomayor Work Phone: [facility] 09-23-2022 13:11-0500 Body mass index (BMI) [Ratio] 25.8 kg/m2 Dr. Ari Sotomayor Work Phone: [facility] 09-23-2022 13:11-0500 Body temperature 98 [degF] Dr. Ari Sotomayor Work Phone: [facility] 09-23-2022 13:11-0500 Body weight 79.[address] Ari Sotomayor Work Phone: [facility] 08-24-2022 18:00-0500 Diastolic blood pressure 74 mm[Hg] Dr. Ari Sotomayor Work Phone: [facility] 08-24-2022 18:00-0500 Heart rate 82 /min Dr. Air Sotomayor Work Phone: [facility] 08-24-2022 18:00-0500 Respiratory rate 18 /min Dr. Ari Sotomayor Work Phone: [facility] 08-24-2022 18:00-0500 SaO2% (BldA) [Mass fraction] 99 % Dr. Ari Sotomayor Work Phone: [facility] 08-24-2022 18:00-0500 Systolic blood pressure 132 mm[Hg] Dr. Ari Sotomayor Work Phone: [facility] 08-24-2022 11:37-0500 Body height 175.[address] Ari Sotomayor Work Phone: [facility] Work Phone: 08-24-2022 11:37-0500 Body mass index (BMI) [Ratio] 26.6 kg/m2 Dr. Ari Sotomayor Work Phone: [facility] 08-24-2022 11:37-0500 Body temperature 96.8 [degF] Dr. Ari Sotomayor Work Phone: [facility] 08-24-2022 11:37-0500 Body weight 81.[address] Ari Sotomayor Work Phone: [facility] 08-20-2022 22:55-0500 Heart rate 88 /min Dr. Ari Sotomayor Work Phone: [facility] 08-20-2022 22:55-0500 Respiratory rate 20 /min Dr. Ari Sotomayor Work Phone: [facility] 08-20-2022 22:55-0500 SaO2% (BldA) [Mass fraction] 98 % Dr. Ari Sotomayor Work Phone: [facility] 08-20-2022 20:20-0500 Body height 175.[address] Ari Sotomayor Work Phone: [facility] Work Phone: 08-20-2022 20:20-0500 Body mass index (BMI) [Ratio] 26.6 kg/m2 Dr. Ari Sotomaoyr Work Phone: [facility] 08-20-2022 20:20-0500 Body temperature 97.9 [degF] Dr. Ari Sotomayor Work Phone: [facility] 08-20-2022 20:20-0500 Body weight 81.[address] Ari Sotomayor Work Phone: [facility] 08-20-2022 20:20-0500 Diastolic blood pressure 74 mm[Hg] Dr. Ari Sotomayor Work Phone: [facility] 08-20-2022 20:20-0500 Systolic blood pressure 125 mm[Hg] Dr. Ari Sotomayor Work Phone: [facility] 07-18-2022 21:54-0500 Body mass index (BMI) [Ratio] 26.6 kg/m2 Dr. Ari Sotomayor Work Phone: [facility] 07-18-2022 21:54-0500 Body temperature 97.7 [degF] Dr. Ari Sotomayor Work Phone: [facility] 07-18-2022 21:54-0500 Body weight 81.[address] Ari Sotomayor Work Phone: [facility] 07-18-2022 21:54-0500 Diastolic blood pressure 100 mm[Hg] Dr. Ari Sotomayor Work Phone: [facility] 07-18-2022 21:54-0500 Heart rate 109 /min Dr. Ari Sotomayor Work Phone: [facility] 07-18-2022 21:54-0500 Respiratory rate 19 /min Dr. Ari Sotomayor Work Phone: [facility] 07-18-2022 21:54-0500 SaO2% (BldA) [Mass fraction] 97 % Dr. Ari Sotomayor Work Phone: [facility] 07-18-2022 21:54-0500 Systolic blood pressure 139 mm[Hg] Dr. Ari Sotomayor Work Phone: [facility] 07-11-2022 08:44-0500 Body height 174 cm Kenny Serna MD Work Phone: [facility] 07-11-2022 08:44-0500 Body mass index (BMI) [Ratio] 25.47 kg/m2 Kenny Serna MD Work Phone: [facility] 07-11-2022 08:44-0500 Body weight 77.11 kg Kenny Serna MD Work Phone: [facility] 07-11-2022 08:44-0500 Diastolic blood pressure 81 mm[Hg] Kenny Serna MD Work Phone: [facility] 07-11-2022 08:44-0500 Systolic blood pressure 117 mm[Hg] Kenny Serna MD Work Phone: [facility] 07-02-2022 10:08-0500 Body mass index (BMI) [Ratio] 27 kg/m2 Dr. Ari Sotomayor Work Phone: [facility] 07-02-2022 10:08-0500 Body weight [address] Ari Sotomayor Work Phone: [facility] 06-28-2022 22:47-0400 Respiratory rate 16 /min [facility] 06-28-2022 21:30-0400 Body height 175.26 cm [facility] Work Phone: 06-28-2022 21:30-0400 Body mass index (BMI) [Ratio] 26.6 kg/m2 [facility] 06-28-2022 21:30-0400 Body temperature 97.5 [degF] [facility] 06-28-2022 21:30-0400 Body weight 81.64 kg [facility] 06-28-2022 21:30-0400 Diastolic blood pressure 99 mm[Hg] [facility] 06-28-2022 21:30-0400 Heart rate 106 /min [facility] 06-28-2022 21:30-0400 SaO2% (BldA) [Mass fraction] 93 % [facility] 06-28-2022 21:30-0400 Systolic blood pressure 140 mm[Hg] [facility] 05-04-2022 19:26-0400 Body height 175.26 cm [facility] Work Phone: 05-04-2022 19:26-0400 Body mass index (BMI) [Ratio] 25.1 kg/m2 [facility] Work Phone: 05-04-2022 19:26-0400 Body temperature 98.9 [degF] [facility] Work Phone: 05-04-2022 19:26-0400 Body weight 77.11 kg [facility] Work Phone: 05-04-2022 19:26-0400 Diastolic blood pressure 78 mm[Hg] [facility] Work Phone: 05-04-2022 19:26-0400 Heart rate 78 /min [facility] Work Phone: 05-04-2022 19:26-0400 Respiratory rate 16 /min [facility] Work Phone: 05-04-2022 19:26-0400 SaO2% (BldA) [Mass fraction] 96 % [facility] Work Phone: 05-04-2022 19:26-0400 Systolic blood pressure 158 mm[Hg] [facility] Work Phone: 03-21-2022 22:28-0400 Respiratory rate 16 /min [facility] Work Phone: 03-21-2022 19:15-0400 Body height 175.26 cm [facility] Work Phone: 03-21-2022 19:15-0400 Body mass index (BMI) [Ratio] 26.6 kg/m2 [facility] Work Phone: 03-21-2022 19:15-0400 Body temperature 97.9 [degF] [facility] Work Phone: 03-21-2022 19:15-0400 Body weight 81.64 kg [facility] Work Phone: 03-21-2022 19:15-0400 Diastolic blood pressure 78 mm[Hg] [facility] Work Phone: 03-21-2022 19:15-0400 Heart rate 88 /min [facility] Work Phone: 03-21-2022 19:15-0400 SaO2% (BldA) [Mass fraction] 98 % [facility] Work Phone: 03-21-2022 19:15-0400 Systolic blood pressure 135 mm[Hg] [facility] Work Phone: 01-27-2022 20:06-0400 Body mass index (BMI) [Ratio] 28 kg/m2 [facility] Work Phone: 01-27-2022 20:06-0400 Body temperature 98.2 [degF] [facility] Work Phone: 01-27-2022 20:06-0400 Body weight 86.18 kg [facility] Work Phone: 01-27-2022 20:06-0400 Diastolic blood pressure 96 mm[Hg] [facility] Work Phone: 01-27-2022 20:06-0400 Heart rate 95 /min [facility] Work Phone: 01-27-2022 20:06-0400 Respiratory rate 16 /min [facility] Work Phone: 01-27-2022 20:06-0400 SaO2% (BldA) [Mass fraction] 95 % [facility] Work Phone: 01-27-2022 20:06-0400 Systolic blood pressure 171 mm[Hg] [facility] Work Phone: 05-15-2020 06:18-0400 Body Temperature 98.6 [degF] [facility] [place] 05-15-2020 06:18-0400 BP Diastolic 78 mm[Hg] [facility] 05-15-2020 06:18-0400 BP Systolic 126 mm[Hg] [facility] 05-15-2020 06:18-0400 Pulse (Heart Rate) 88 /min [facility] 05-15-2020 06:18-0400 Pulse Oximetry 95 % [facility] 05-15-2020 06:18-0400 Respiratory Rate 14 /min [facility] 05-13-2020 18:38-0400 BMI (Body Mass Index) 31.01 kg/m2 [facility] 05-13-2020 18:38-0400 Body weight 95.25 kg [facility] 05-13-2020 18:38-0400 Height 175.3 cm [facility] 01-05-2020 17:35-0400 Body temperature 37.0 Deg [facility] Comment on above: Performed By: #### CMP #### [facility] [address] [id number] 05-13-2019 02:21-0400 BP Diastolic 81 mm[Hg] [facility] [place] 05-13-2019 02:21-0400 BP Systolic 128 mm[Hg] [facility] [place] 05-13-2019 02:21-0400 Pulse (Heart Rate) 88 /min [facility] 05-13-2019 02:21-0400 Pulse Oximetry 97 % [facility] [place] 05-13-2019 02:21-0400 Respiratory Rate 18 /min [facility] 05-12-2019 19:02-0400 BMI (Body Mass Index) 30.41 kg/m2 [facility] 05-12-2019 19:02-0400 Body Temperature 97.81 [degF] [facility] 05-12-2019 19:02-0400 Body weight 90.72 kg [facility] [place] 05-12-2019 19:02-0400 Height 172.7 cm [facility] [place] Encounters Encounter Date Encounter Type Care Provider [...] 09-05-2024 Emergency department patient visit Narciso Baron Facility:[facility] Start: 08-07-2024 End: 08-07-2024 Emergency department patient visit Jordin Chisholm Facility:[facility] Start: 06-29-2024 End: 06-29-2024 Emergency department patient visit Amandeep Loredo Facility:[facility] Start: 05-11-2024 End: 05-12-2024 [facility] Start: 01-30-2024 End: 01-30-2024 ambulatory Cheri Kuhn RN [facility] Comment on above: Advice/health educat ion Start: 12-01-2023 End: 12-01-2023 Emergency department patient visit [facility] Work Phone: Start: 11-18-2023 End: 11-18-2023 Emergency department patient visit [facility] Work Phone: Start: 10-07-2023 End: 10-07-2023 Emergency department patient visit [facility] Work Phone: Start: 09-01-2023 ambulatory Alva Chauhan Cl inical Communication Start: 09-01-2023 Patient encounter procedure Alva Blas RN [facility] Start: 07-27-2023 End: 07-27-2023 Office outpatient visit 15 minutes Amandeep Loredo DO Work Phone: [facility] Comment on above: Chronic superficial gastritis without bleeding (Primary Dx); Seizure (HCC) Start: 07-06-2023 End: 07-06-2023 Subsequent hospital visit by physician Kenny Serna MD Work Phone: [facility] X-ray Comment on above: Status post lumbar s pine surgery for decompression of spinal cord Start: 07-06-2023 End: 07-06-2023 Subsequent hospital visit by physician Shadia Kovacs PA-C Work Phone: [facility] Comment on above: Cervicalgia Start: 05-11-2023 Transcribe Orders Shadia Morales to ADA Work Phone: [facility] Central Scheduling Comment on above: Cervicalgia (Primary Dx) Start: 03-06-2023 End: 03-06-2023 Emergency department patient visit BELINDA COVARRUBIAS MD Facility:[facility] Start: 03-05-2023 End: 03-06-2023 Emergency department patient visit BELINDA COVARRUBIAS MD [facility] Start: 02-15-2023 End: 02-15-2023 [facility] Start: 11-25-2022 End: 11-25-2022 Subsequent hospital visit by physician [facility] Ed Xr Portable [facility] X-Ray Comment on above: Arrived Start: 11-25-2022 End: 11-27-2022 Emergency department patient visit Earl Parson MD Work Phone: [facility] 4N MED SURG Comment on above: Syncope, [...] 11-16-2022 End: 11-17-2022 Emergency department patient visit [facility] Start: 11-13-2022 Telephone encounter Brenda garcia ELECTRONIC SYSTEM ENGINEER Work Phone: [facility] Orthopedics Comment on above: Post-op Call Start: 11-06-2022 End: 11-06-2022 Subsequent hospital visit by physician [facility] Surgery C-Arm C [facility] X-Ray Comment on [...] Telephone encounter Brenda garcia NP Work Phone: [facility] Start: 10-30-2022 End: 10-30-2022 Subsequent hospital visit by physician [facility] Xr Exam Room 3 [facility] Radiology Comment on above: Mild intermittent as thma, unspecified whether complicated; Cough, unspecified type Start: 10-30-2022 End: 10-30-2022 Office outpatient visit 25 minutes Amandeep Loredo DO Work Phone: [facility] Comment on above: Lumbosacral radiculo [...] Center Family Medicine Start: 10-28-2022 ambulatory Brenda Spence Work Phone: [facility] Comment on above: Lumbar radiculopathy (Primary Dx) Start: 10-27-2022 Telephone encounter Kenny durand MD Work Phone: [facility] Comment on above: Nurse Navigation Start: 10-14-2022 End: 10-14-2022 Emergency department patient visit Dr. Ari Sotomayor Work Phone: [facility] Start: 10-13-2022 End: 10-13-2022 Office outpatient [...] End: 09-25-2022 Subsequent hospital visit by physician [facility] Ct Exam Room [address] [facility] CT Comment on above: Canceled (Patient) Start: 09-23-2022 End: 09-23-2022 Emergency department patient visit Dr. Ari Sotomayor Work Phone: [facility] Start: 08-24-2022 End: 08-24-2022 Emergency department patient visit Dr. Ari Sotomayor Work Phone: [facility] Start: 08-20-2022 End: 08-21-2022 Emergency department patient visit Dr. Ari Sotomayor Work Phone: [facility] Start: 07-18-2022 End: 07-19-2022 Emergency department patient visit Dr. Ari Sotomayor Work Phone: [facility] Start: 07-11-2022 Transcribe Orders eKnny metz MD Work Phone: [facility] Anam Start: 07-11-2022 End: 07-11-2022 Office outpatient new 45 minutes Kenny Serna MD Work Phone: [facility] Comment on above: Lumbar stenosis with neurogenic claudication (Primary Dx); Lumbar pain Start: 07-02-2022 End: 07-02-[address] Ari Sotomayor Work Phone: [facility] Orthopaedic Specia Start: 06-28-2022 End: 06-28-2022 Emergency department patient visit [facility] Start: 05-04-2022 End: 05-04-2022 Emergency department patient visit [facility] Start: 04-02-2022 End: 04-02-2022 Patient encounter procedure [facility]Laboratory Start: 03-21-2022 End: 03-21-2022 Emergency department patient visit [facility] Start: 01-27-2022 End: 01-27-2022 Emergency department patient visit [facility] Start: 05-13-2020 End: 05-15-2020 Evaluation and management of inpatient Augustine Rodriguez Work Phone: [facility] 7 MED SURG Comment on above: Other constipation ( Primary Dx); Gastroparesis; Constipation, unspecified constipation type; Irritable bowel syndrome with constipation Start: 09-13-2019 End: 09-13-2019 Subsequent hospital visit by physician Ari Sotomayor DO Work Phone: [facility] Comment on above: Nausea and vomiting, intractability of vomiting not specified, unspecified vomiting type; Painful urination; Flank pain Start: 05-12-2019 End: 05-13-2019 Emergency department patient visit Luis Angel Meng Work Phone: [facility] Emergency Dept Comment on above: Bilateral low back p ain without sciatica, unspecified chronicity (Primary Dx) Procedures Date Procedure Procedure Detail Performing Clinician Start: 04-14-2025 X-ray of chest, PA a nd lateral views Dr. Amandeep Loredo DO Work Phone: Start: 04-14-[address] Amandeep Loredo DO Work Phone: Start: 03-14-[address] Amandeep Lroedo DO Work Phone: Start: 01-05-2025 Plain x-ray [...] 11-25-2022 Drug screen quantita tive levetiracetam Tyler Levya DO Work Phone: Start: 11-25-2022 Thyrotropin [Units/v [...] or older (1 - 1-dose 60+ series) [facility] Start: 04-14-2025 [facility] Start: 04-14-2025 [facility] Start: 03-14-2025 [facility] Start: 03-14-2025 XR Thoracic spine Views [facility] Start: 03-14-2025 Xray thoracic spine Thoracic Spine 2 Views [facility] Start: 01-05-2025 [facility] Start: 10-21-2024 [facility] Start: 12-01-2023 [facility] Start: 11-18-2023 [facility] Start: 10-31-2023 Diabetes mellitus screening Diabetes Screening [facility] Start: 09-02-2023 End: 09-02-2023 Patient encounter procedure 09/02/2023 8:40 AM EST Office Visit [facility] [address] [place] [address] Leandra Berger PA-C [address] [place] [address] [facility] Start: 04-24-2023 COVID-19 Vaccine ( season) COVID-19 Vaccine ( season) [facility] Start: 04-24-2023 Influenza vaccination [facility] Start: 02-04-2023 End: 02-04-2023 Patient encounter procedure 02/04/2023 Office Visit Orthopedic Surgery Kenny Serna MD [address] [facility] [address] [place], [place] [address] [facility] Start: 02-04-2023 End: 02-04-2023 Documentation procedure 02/04/2023 Documentation Orthopedic Surgery [facility] Start: 12-17-2022 End: 12-17-2022 Patient encounter procedure 12/17/2022 Office Visit Orthopedic Surgery Kenny Serna MD [address] [facility] [address] [place], [place] [id number] [facility] Start: 11-26-2022 End: 11-26-2022 Patient encounter procedure 11/26/2022 Office Visit Orthopedic Surgery Ha Carcamo PA-C [address] [facility] [address] [place], [place] [id number] [facility] Start: 11-26-2022 End: 11-26-2022 Documentation procedure 11/26/2022 Documentation Orthopedic Surgery [facility] Start: 11-25-2022 End: 11-25-2022 Patient encounter procedure 11/25/2022 Office Visit Orthopedic Surgery Ha Carcamo PA-C [address] [facility] [address] [place] [address] [facility] Start: 11-25-2022 End: 11-25-2022 Documentation procedure 11/25/2022 Documentation Orthopedic Surgery [facility] Start: 11-06-2022 End: 11-06-2022 Admission to same day surgery center 11/06/2022 Surgery Procedural Kenny Serna MD [address] [facility] [address] [place] [address] ANTERIOR LUMBAR INTERBODY FUSION L3/4 VIA RETROPERITONEAL APPROACH POSTERIOR LATERAL FUSION WITH INSTRUMENTATION L3/L4 LUMBAR L3/L4 LAMINECTOMY [16119 (CPT )] [facility] MAIN OR Comment on above: ANTERIOR LUMBAR INTE RBODY FUSION L3/4 VIA RETROPERITONEAL APPROACH POSTERIOR LATERAL FUSION WITH INSTRUMENTATION L3/L4 LUMBAR L3/L4 LAMINECTOMY [72102 (CPT )] Start: 11-06-2022 End: 11-06-2022 Anesthesia consultation 11/06/2022 Anesthesia Event Procedural Ivy Shelby, BLAYNE [address] [place] [address] [facility] MAIN OR Start: 11-06-2022 End: 11-06-2022 Arthrodesis anterior interbody lumbar ANTERIOR LUMBAR MICRODISCECTOMY AND FUSION XLIF Radiculopathy, lumbar region Spinal stenosis of lumbar region Spondylolisthesis, lumbar region Other intervertebral disc degeneration, lumbar region 11/06/2022 12:30 PM EDT [facility] Operating Room Start: 11-06-2022 End: 11-06-2022 Srinivasan facetectomy & foramotomy 1 segment lumbar POSTERIOR LUMBAR LAMINECTOMY FACETECTOMY FORAMINOTOMY AND DECOMPRESSION Radiculopathy, lumbar region Spinal stenosis of lumbar region Spondylolisthesis, lumbar region Other intervertebral disc degeneration, lumbar region 11/06/2022 12:30 PM EDT [facility] Operating Room Start: 11-06-2022 Subsequent hospital visit by physician 11/06/2022 Hospital Encounter Procedural Kenny Serna MD [address] [facility] [address] [place] [address] [facility] MAIN OR Start: 10-31-2022 End: 10-31-2022 Admission to [facility] Pre-Admit Testing Start: 10-30-2022 End: 10-30-2022 Patient encounter procedure 10/30/2022 Office Visit Family Medicine Amandeep Loredo DO [address] [place] [phone] [facility] Start: 10-28-2022 End: 10-29-2023 Comprehensive metabolic 1997 panel - Serum or Plasma Comprehensive metabolic panel Lab Routine Lumbar radiculopathy Expected: 10/28/2022 (Approximate), Expires: 10/29/2023 [employer] Work Phone: Comment on above: Expected: 10/28/2022 (Approximate), Expires: 10/29/2023 Start: 10-28-2022 End: 10-29-2023 Hemoglobin A1c/Hemoglobin.total in Blood Hemoglobin A1c Lab Routine Lumbar radiculopathy Expected: 10/28/2022 (Approximate), Expires: 10/29/2023 [employer] Comment on above: Expected: 10/28/2022 (Approximate), Expires: 10/29/2023 Start: 10-28-2022 End: 10-29-2023 Methicillin resistant Staphylococcus aureus (MRSA) DNA [Presence] in Nose by KRISTEN with probe detection MRSA by PCR Microbiology Routine Lumbar radiculopathy Expected: 10/28/2022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 4% Salonpas Lidoderm patch and Mucinex. Please follow-up with your primary care doctor. Return if you have a difficult time breathing or you have a progression/change of your symptoms.[facility] Work Phone[facility] instructions Additional Instructions Follow-up with your spine surgeon on Thursday as scheduled. Continue taking your gabapentin, ibuprofen, and Flexeril.[facility] Work Phone: Hospital Discharge instructions [...] the ER should you have any further [facility]WMem[facility] Work Phone: Hospital Discharge instructions Additional Instructions The x-ray showed no broken bones. I suspect that your pain is from irritation of the ulnar nerve that runs on your elbow. As the swelling and pressure decreases the pain should go down. I prescribed steroids and recommend you take cbxu-lxz-lxptrcp pain relievers as needed.[facility] Work Phone: Hospital Discharge instructions Additional Instructions Pain caused by her heel spur. Motrin, Advil or ibuprofen for pain and swelling. Tylenol for pain. Ice to your heel. Buy extra padding to put in your shoe like a gel cup. Call and follow-up with the night stocker Dr. Dawit Mandujano for further evaluation and treatment of the heel spur.[facility] Work Phone: Hospital Discharge instructions* Attachments The following attachments cannot be sent through Care Everywhere. * Myelography (Cymraes) [facility] Additional Instructions Motrin for pain and inflammation. Percocet for severe pain. Skelaxin is a muscle relaxant 1 pill 3 times a day till gone. Hot shower, warm bath, hot tub, massage for the muscle spasm. Follow-up with your doctor if not improving for further evaluation.[facility] Work Phone: Summary note* STEPHANIE Rodriguez: PERFORM Event Display: Patient Summary Documents Authored Date: [id number] [facility] Discharge Instructions * Attachments The following attachments cannot be sent through Care Everywhere. * Back Pain (Cymraes) documented in this encounter* Discharge Instr - Lab* Colleen Rogel RN - 05/15/2020 1:10 PM EDT Your physician has ordered skilled home care services for you. Your home care will be provided by: [facility] [phone] * Attachments The following attachments cannot be sent through Care Everywhere. * linaclotide (Cymraes) * polyethylene glycol 3350 (Cymraes) * senna (Cymraes) documented in this encounter Assessments Diagnosis Bilateral low back pain without sciatica, unspecified chronicity- Primary Diagnosis Constipation, unspecified constipation type Gastroparesis Irritable bowel syndrome with constipation Irritable bowel syndrome Presence of gastric pacemaker Generalized abdominal pain Abdominal pain, generalized Nausea and vomiting Nausea with vomiting Advance Directives Documents on File Type Date Recorded Patient Pad Extraction Tender Expl anation Advance Directives and Living Will Power of Hotel Housekeeper Latest Code Status on File Code Status Date Activated Date Inactivated Comments Full Code 11/25/2017 3:30 PM 11/25/2017 11:54 PM Documents on File Type Date Recorded Patient Pad Extraction Tender Expl anation ACP-Advance Directive ACP-Power of Hotel Housekeeper Latest Code Status on File Code Status Date Activated Date Inactivated Comments Full Code 05/14/2020 12:49 AM Full Code 09/16/2019 11:05 PM 09/19/2019 4:00 PM Full Code 11/25/2017 3:30 PM 11/25/2017 11:54 PM Documents on File Type Date Recorded Patient Pad Extraction Tender Expl anation Advance Directives and Living Will Power of Hotel Housekeeper Latest Code Status on File Code Status Date Activated Date Inactivated Comments Full Code 11/25/2017 3:30 PM 11/25/2017 11:54 PM Advance Directive Response Recorded Date/ Time Name of Medical Power of Hotel Housekeeper LEANDRA MILLER March 21, 2022 8:16pm Advance Directives No September 30, 2016 10:48pm Living Will No March 21, 2022 8:16pm Power of Hotel Housekeeper Yes March 21 8:16pm Advance Directive Response Recorded Date/ Time Name of Medical Power of Hotel Housekeeper LEANDRA MILLER March 21, 2022 8:16pm Name of Medical Power of Hotel Housekeeper Leandra Miller May 04, 2022 7:39pm Advance Directives No September 30, 2016 10:48pm Living Will No May 04, 2022 7:39pm Power of Hotel Housekeeper Yes April 7:39pm Advance Directive Response Recorded Date/ Time Name of Medical Power of Hotel Housekeeper LEANDRA MILLER March 21, 2022 8:16pm Name of Medical Power of Hotel Housekeeper Leandra Miller May 04, 2022 7:39pm Advance Directives No September 30, 2016 10:48pm Living Will No June 28 10:07pm Power of Hotel Housekeeper No June 28, 2022 10:07pm Advance Directive Response Recorded Date/ Time Name of Medical Power of Hotel Housekeeper Leandra Miller May 04, 2022 6:39pm Name of Medical Power of Hotel Housekeeper LEANDRA MILLER August 20, 2022 10:04pm Advance Directives No September 30, 2016 9:48pm Living Will No August 20 10:04pm Power of Hotel Housekeeper Yes August 20, 2022 10:04pm Advance Directive Response Recorded Date/ Time Name of Medical Power of Hotel Housekeeper Leandra Miller May 04, 2022 6:39pm Name of Medical Power of Hotel Housekeeper LEANDRA MILLER August 20, 2022 10:04pm Advance Directives No September 30, 2016 9:48pm Living Will No August 24 11:48am Power of Hotel Housekeeper No August 24 023 11:48am Advance Directive Response Recorded Date/ Time Name of Medical Power of Hotel Housekeeper LEANDRA MILLER August 20, 2022 10:04pm Name of Medical Power of Hotel Housekeeper Leandra Miller September 23, 2022 2:02pm Advance Directives No September 30, 2016 9:48pm Living Will No September 23 2:02pm Power of Hotel Housekeeper Yes September 23, 2022 2:02pm Advance Directive Response Recorded Date/ Time Name of Medical Power of Hotel Housekeeper LEANDRA MILLER August 20, 2022 10:04pm Name of Medical Power of Hotel Housekeeper Leandra Miller September 23, 2022 2:02pm Advance Directives No September 30, 2016 9:48pm Living Will No October 14 023 8:18pm Power of Hotel Housekeeper No October 14, 2022 8:18pm Advance Directive Response Recorded Date/ Time Name of Medical Power of Hotel Housekeeper LEANDRA MILLER August 20, 2022 11:04pm Name of Medical Power of Hotel Housekeeper Leandra Miller September 23, 2022 3:02pm Name of Medical Power of Hotel Housekeeper Leandra November 16, 2022 10:40pm Advance Directives No September 30, 2016 10:48pm Living Will Yes November 16, 2022 10:40pm Power of Hotel Housekeeper Yes November 16 10:40pm Latest Code Status [...] Date/ Time Name of Medical Power of Hotel Housekeeper Leandra November 16, 2022 10:40pm Name of Medical Power of Hotel Housekeeper LEANDRA PARRIS KNUTSON February 15, 2023 5:20pm Advance Directives No September 30, 2016 10:48pm Living Will No February 15, 2023 5:20pm Power of Hotel Housekeeper Yes February 15 5:20pm Advance Directive Response Recorded Date/ Time Advance Directives No September 30, 2016 9:48pm Living Will No October 07, 024 7:54pm Power of Hotel Housekeeper No October 07, 2023 7:54pm Advance Directive Response Recorded Date/ Time Name of Medical Power of Hotel Housekeeper Leandra Miller November 18, 2023 6:49pm Advance Directives No September 30, 2016 10:48pm Living Will No November 18, 2023 6:49pm Power of Hotel Housekeeper Yes November 17 6:49pm Advance Directive Response Recorded Date/ Time Name of Medical Power of Hotel Housekeeper Leandra Miller November 18, 2023 6:49pm Name of Medical Power of Hotel Housekeeper [facility] December 01, 2023 2:14am Advance Directives No September 30, 2016 10:48pm Living Will No December 01, 2023 2:14am Power of Hotel Housekeeper Yes November 30 2:14am Date Activated Date Inactivated Comments 10/09/2015 8:54 PM 10/11/2015 6:36 PM Advance Directive Response Recorded Date/ Time Living Will No October 20, 025 9:14pm Do you have a Healthcare Power of Hotel Housekeeper? Yes October 20, 2024 9:14pm Name of Medical Power of Hotel Housekeeper Leandra Miller October 20, 2024 9:14pm Do you have a Healthcare Power of Hotel Housekeeper? No January 05, 2025 6:20pm Advance Directives No September 10:23am Advance Directive Response Recorded Date/ Time Do you have a Healthcare Power of Hotel Housekeeper? No January 05, 2025 6:20pm Do you have a Healthcare Power of Hotel Housekeeper? Yes March 14, 2025 2:52pm Advance Directives No September 10:23am Advance Directive Response Recorded Date/ Time Do you have a Healthcare Power of Hotel Housekeeper? No January 05, 2025 6:20pm Do you have a Healthcare Power of Hotel Housekeeper? Yes March 14, 2025 2:52pm Do you have a Healthcare Power of Hotel Housekeeper? No April 14, 2025 7:56am Advance Directives [...] February 02, 2019 7:58pm Family History?Diabetes Unknown [facility] 2024 10:23am Family History?Heart Disease Unknown February 02, 2019 7:58pm Hospital Course Note HNO ID: [id number] Author: Neelam Mueller MD Service: Hospital Medicine [...] (more content not included)... Note HNO ID: [id number] Author: Lian Vora Service: Neurology ICU Author Type: Physician Type: Procedures Filed: 01/06/2020 4:48 PM Note Text: BEDSIDE PROCEDURE NOTE CENTRAL LINE Performed by: Halle Arredondo Authorized by: Halle Arredondo The risks, benefits and alternatives of the procedure were reviewed with the patient/patient client care representative. The patient/patient client care representative agreed to proceed. Informed Consent Written Consent Obtained: yes [place] Protocol Sign In Communication: Completed Time Out [...] (more content not included)... Note HNO ID: [id number] Author: Lian Bunch Service: Radiology Author Type: Physician Type: Brief Op Note Filed: 01/06/2020 2:55 PM Note Text: INTERVENTIONAL RADIOLOGY POST PROCEDURE NOTE DATE: 01/06/20 NAME: Ortiz Mason LOG ID: [id number] Pre-Procedure Diagnosis: Headache and intracranial hypotension Scientific Diver: Surgeon(s) and Role: * Erika Bunch - [...] I discussed the case with the physician marketing support assistant. Patient was laying in bed during [...] not included)... Procedure Findings Note HNO ID: [id number] Author: Lian Vora Service: Neurology ICU Author Type: Physician Type: Procedures Filed: 01/06/2020 4:48 PM Note Text: BEDSIDE PROCEDURE NOTE CENTRAL LINE Performed by: Halle Arredondo Authorized by: Halle Arredondo The risks, benefits and alternatives of the procedure were reviewed with the patient/patient client care representative. The patient/patient client care representative agreed to proceed. Informed Consent Written Consent Obtained: yes [place] Protocol Sign In Communication: Completed Time Out [...] (more content not included)... Note HNO ID: [id number] Author: Lian Bunch Service: Radiology Author Type: Physician Type: Brief Op Note Filed: 01/06/2020 2:55 PM Note Text: INTERVENTIONAL RADIOLOGY POST PROCEDURE NOTE DATE: 01/06/20 NAME: Ortiz Mason LOG ID: [id number] Pre-Procedure Diagnosis: Headache and intracranial hypotension Scientific Diver: Surgeon(s) and Role: * Erika Bunch - [...] syndrome with constipation Delbert Damon PA-C [address] [facility] [address] [place] [address] [facility] [address] [facility] [address] [place] [address] Scheduling Instructions [facility] [address], [address] [place]. [address] Fax: Status Reason Specialty Diagnoses / Procedures Re ferred By Contact Referred To Contact Closed Radiology Diagnoses Painful urination Flank pain Procedures CT ABDOMEN PELVIS WO CONTRAST Additional Contrast? Radiologist Recommendation Ari Sotomayor, DO [address] [place] [address] Specialty Diagnoses / Procedures Referred By Contac t Referred To Contact Neurology Diagnoses Cervicalgia Procedures Nerve conduction test with EMG Shadia Kovacs PA-C [address] [place] [address] [facility] [address] [place] [address] Referral ID Status Reason Start Date Expiration Date Visits Re quested Visits Authorized [id number] Closed 05/11/2023 11/07/2023 1 1 Specialty Diagnoses / Procedures Referred By Contac t Referred To Contact Radiology Diagnoses Spinal stenosis, lumbar region with neurogenic claudication Procedures IR myelography lumbosacral SI Kenny Serna MD 1 [facility] [address] [place] [address] Referral ID Status Reason Start Date Expiration Date Visits Re quested Visits Authorized [id number] Closed 09/23/2022 03/22/2023 1 1 History of Present Illness * Damari Askew DTR - 05/15/2020 1:27 PM EDT Nutrition rescreen completed. Chart reviewed. Patient to be monitored and followed by the diet drafting technician. 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 has a [...] Ambulation Assistance: Independent Transfer Assistance: Independent Active Power Superintendent: No Patient's Power Superintendent Info: Daughter or Fiance' Occupation: On disability [...] Plan of Care supervision is transferred to [facility] Physical Therapist. Katrin Mcpherson, PT N-95, goggles, and gloves worn * Janeth Diaz, [facility] - 05/14/2020 10:47 AM EDT [facility] MEDICATION RECONCILIATION Date: 05/14/20 Room:[id number] Patient Name: Ortiz aMson Allergies: Latex; Other; Bee venom; Propoxyphene; Tape [...] daily - last fill on 02/12/20 per [facility] pharmacy. b. Advair 250-50 mcg/dose 1 puff daily (Patient has not filled since January 2020. States script was originally written for q 12 hours but was instructed to use only once daily). c. Levetiracetam 250 mg - 5 tablets twice daily - last fill per [facility] pharmacy 12/13/19 d. Tizanidine 4 mg BID as needed - last fill per [facility] pharmacy was in August 2019. They [...] 10:47 AM Name: Janeth Diaz PharmD Pager: [phone] * Delbert Damon PA-C - 05/14/2020 7:55 AM EDT [facility] Progress Note Ortiz Mason [...] creatinine clearance >30 Disposition:await test results, await human performance consultant recommendations, await clinical improvement and anticipate discharge 1-2d I spent over 51% of total time providing counseling or incoordination of care: > 35 minutes discussed with nurse, patient and family updated, I personally examined the patient and I personally reviewed chart, data, labs radiology reports 7AM-4PM Please Perfect serve Delbert Damon PA-C or page: [phone] 6PM-6AM please page: [facility] Internal Medicine Associated attestation - Kenisha Brunson MD - 05/14/2020 3:19 PM EDT Attending Supervising Physician's Attestation Statement The patient is a 50 y.o. female. I have performed a history and physical examination of the patient. I discussed the case with the physician marketing support assistant. I reviewed the patient's Past Medical [...] gastroparesis s/p neurostimulator placement 2012 with battery [id number] presenting with abdominal pain and constipation Gastroparesis - will interrogate pacer today - ok to advance diet as tolerated - anti-emetics PRN - consider scheduled reglan Constipation - aggressive bowel regimen - GI consulted Pager:[phone] Associated attestation - Theron Taylor MD - 05/14/2020 2:08 PM EDT [facility] - [facility] Physicians Surgery Patient Name: Ortiz Mason Date: [...] LUMBAR STENOSIS LUMBAR SPONDYLOLITHESES LUMBAR DDD Procedures OK ARTHRD ANT INTERBODY MIN DSC LUMBAR OK SRINIVASAN FACETECTOMY & FORAMOTOMY 1 VRT SGM LUMBAR OK INSJ BIOMCHN DEV INTERVERTEBRAL DSC SPC W/ARTHRD OK POSTERIOR SEGMENTAL INSTRUMENTATION 3-6 VRT SEG OK ALLOGRAFT FOR SPINE SURGERY ONLY MORSELIZED OK AUTOGRAFT SPINE SURGERY LOCAL FROM SAME INCISION OK SRINIVASAN FACETECTOMY & FORAMOTOMY 1 VRT SGM LUMBAR OK SRINIVASAN FACETECTOMY&FORAMOT 1 VRT SGM EA ADDL SGM OK STEREOTACTIC COMPUTER ASSISTED PX SPINAL ANTERIOR LUMBAR INTERBODY FUSION L3/4 VIA RETROPERITONEAL APPROACH; POSTERIOR LATERAL FUSION WITH INSTRUMENTATION L3/L4; LUMBAR L3/L4 LAMINECTOMY POSTERIOR LUMBAR LAMINECTOMY FACETECTOMY FORAMINOTOMY AND DECOMPRESSION Kenny Serna MD [address] [facility] Main Or [address] [place] [address] Referral ID Status Reason Start Date Expiration Date Visits Re quested Visits Authorized [id number] 1 1 Reason Onset Date Comments Post-op [...] Contact Diagnoses Syncope, unspecified syncope type Procedures [id number], unspecified syncope type Jose R Nowak, DO [address] [place] [address] [facility] Emergency Dept [address] [place] [address] Referral ID Status Reason Start Date Expiration Date Visits Re quested Visits Authorized [id number] 1 1 Specialty Diagnoses / Procedures Referred By Contac t Referred To Contact Radiology Diagnoses Spinal stenosis, lumbar region with neurogenic claudication Procedures CT lumbar spine w IV contrast Kenny Serna MD 1 [facility] [address] [place] [address] Referral ID Status Reason Start Date Expiration Date Visits Re quested Visits Authorized [id number] Closed 07/11/2022 2023 1 1 Specialty Diagnoses / Procedures Referred By Contac t Referred To Contact Neurology Diagnoses Cervicalgia Procedures Nerve conduction test with EMG Shadia Kovacs PA-C [address] [place] [address] [facility] Neuro [address] [place] [address] Referral ID Status Reason Start Date Expiration Date Visits Re quested Visits Authorized [id number] Closed 05/11/2023 11/07/2023 1 1 Reason Comments Mass On stomach getting b igger and now painful Reason Onset Date Comments Mouth Lesions 09/01/2023 Reason Onset Date Comments Advice/health education 01/30/2024 Reason Comments New Patient Specialty Diagnoses / Procedures Referred By Contac t Referred To Contact Orthopedic Surgery Diagnoses Lumbar pain Ileana Villa, CATALYST UNIT OPERATOR - ELECTRONIC SYSTEM ENGINEER [address] [place] [address] Kenny Serna MD [address] [facility] [address] [place] [address] Referral ID Status Reason Start Date Expiration Date Visits Requested Visits Authorized [id number] Pending Review Specialty Services Required 12/30/2022 1 1 Specialty Diagnoses / Procedures Referred By Contac t Referred To Contact Radiology Diagnoses Spinal stenosis, lumbar region with neurogenic claudication Procedures IR myelography lumbosacral SI Kenny Serna MD 1 [facility] [address] [place] [address] Referral ID Status Reason Start Date Expiration Date Visits Re quested Visits Authorized [id number] Closed 09/23/2022 03/22/2023 1 1 Reason Comments Follow-up Reason Onset Date Comments nurse triage 10/01/2022 Reason Onset Date Comments Nurse Navigation 10/27/2022 Reason Comments surgical clearance INFORMATION SOURCE (unrecogn ized section and content) DATE CREATED AUTHOR 09/17/2019 [facility] DATE CREATED AUTHOR AUTHOR'S ORGANIZ ATION 01/09/2020 [facility] DATE CREATED AUTHOR AUTHOR'S ORGANIZ ATION 01/09/2020 [facility] DATE CREATED AUTHOR AUTHOR'S ORGANIZ ATION 01/18/2020 [facility] DATE CREATED AUTHOR AUTHOR'S ORGANIZ ATION 05/21/2020 [facility] DATE CREATED AUTHOR AUTHOR'S ORGANIZ ATION 03/13/2023 [facility] ([place]) DATE CREATED AUTHOR AUTHOR'S ORGANIZ ATION 01/31/2024 [facility] DATE CREATED AUTHOR AUTHOR'S ORGANIZ ATION 10/01/2024 [facility] DATE CREATED AUTHOR AUTHOR'S ORGANIZ ATION 03/25/2025 [facility] Goals (unrecognized section and content) Goals [...] Active Jordin Chisholm MD Emergency Provider Active Director [employer] Relationship Specialty Start Date End Date Lauritagerri Amandeep Pineda, DO [address] [place] [address] PCP - General Family Medicine 01/11/21 Director [employer] Relationship Specialty Start Date End Date Amandeep Loredo, DO [address] [place] [address] PCP - General Family Medicine 01/11/21 Director [employer] Relationship Specialty Start Date End Date Michelleharjit Amandeep Pineda, DO [address] [place] [address] PCP - General Family Medicine 01/11/21 Director [employer] Relationship Specialty Start Date End Date Michelleharjit Amandeep Pineda, DO [address] [place] [address] PCP - General Family Medicine 01/11/21 Director For [employer] Relationship Specialty Start Date End Date Michelleharjit Amandeep Pineda, DO [address] [place] [address] PCP - General Family Medicine 01/11/21 Team Status: Inactive Member Role Status Dates Dr. Ari Sotomayor , DO Primary Care Provider Active Jordin Chisholm MD Attending Provider, Emergency Provid er Active Team Status: Inactive Member Role Status Dates Dr. Ari Sotomayor DO Primary Care Provider Active Dr. Alfredito Guerrero , DO Emergency Provider Active Director [employer] Relationship Specialty Start Date End Date Michelleharjit Amandeep Pineda, DO [address] [place], [place] [id number] PCP - General Family Medicine 01/11/21 Director [employer] Relationship Specialty Start Date End Date Gertrude Amandeep Pineda, [address] [place] [address] PCP - General Family Medicine 01/11/21 Director For [employer] Relationship Specialty Start Date End Date Amandeep Loredo, [address] [place], [place] [id number] PCP - General Family Medicine 01/11/21 Director [employer] Relationship Specialty Start Date End Date Gertrude Amandeep Pineda [address] [place] [address] PCP - General Family Medicine 01/11/21 Team Status: Inactive Member Role Status Dates Dr. Ari Sotomayor DO Primary Care Provider Active Dr. Maya Monroy MD Emergency Provider Active Director [employer] Relationship Specialty Start Date End Date Gertrude Amandeep Pineda [address] [place] [id number] PCP - General Family Medicine 01/11/21 Director [employer] Relationship Specialty Start Date End Date Gertrude Amandeep Pineda [address] [place] [phone] PCP - General Family Medicine 01/11/21 Director For [employer] Relationship Specialty Start Date End Date Amandeep Loredo DO [address] [place] [address] PCP - General Family Medicine 01/11/21 Director For [employer] Relationship Specialty Start Date End Date Amandeep Loredo DO [address] [place] [address] PCP - General Family Medicine 01/11/21 Director For [employer] Relationship Specialty Start Date End Date Amandeep Loredo DO [address] [place] [address] PCP - General Family Medicine [...] Franki Flynn , DO Emergency Provider Active Director [employer] Relationship Specialty Start Date End Date Ari Sotomayor DO [address] [place], [place] [phone] PCP - General 09/16/19 Director [employer] Relationship Specialty Start Date End Date Ari Sotomayor DO [address] [place], [place] [phone] PCP - General 09/16/19 Director For [employer] Relationship Specialty Start Date End Date Ari Sotomayor, DO [address] [place] [address] PCP - General 09/16/19 Director [employer] Relationship Specialty Start Date End Date Ari Sotomayor, DO [address] [place] [address] PCP - General 09/16/19 Director For [employer] Relationship Specialty Start Date End Date Ari Sotomayor, DO [address] [place] [address] PCP - General 09/16/19 Director For [employer] Relationship Specialty Start Date End Date JacquelineAri hawk, DO [address] [place] [address] PCP - General 09/16/19 Director [employer] Relationship Specialty Start Date End Date Amandeep Loredo, DO [address] [place] [address] PCP - General Family Medicine 01/11/21 Director [employer] Relationship Specialty Start Date End Date Amandeep Loredo DO [address] [place] [address] PCP - General Family Medicine 01/11/21 Team [...] Rosa Taveras) 0854 (Given - Provider: Shadia Metz RN) [...] Shadia Metz, ARUN)2054 (Medication Removed - Provider: eRa Villareal RN) 1143 (Medication Applied - Provider: [...] - Provider: Sahara Manriquez RN) nystatin (Mycostatin) [id number] UNIT/ML suspension 500,000 Units 500,000 Units (5 mL), Swish & Swallow, 4 times daily, First dose on Thu11/25/22 at 2100 2100 (Given - Provider: Sparkle Hassan RN) 0838 (Given - Provider: Lyndsay Paredes RN)1409 (Given - Provider: Rubia Infante RN)1700 (Canceled Entry - Provider: Automatic Discharge Provider - Comment: Automatically canceled at discontinue of medication order)204 (Given - Provider: Jayne Dubios RN) 0809 (Given - Provider: Spring Miller [...] BE BASED ON THE PRIMARY CLINICAL RECORDS. [employer] provides no warranty or guarantee of the accuracy or completeness of information in this document.
[2025-04-15] MEDS: Orphenadrine 60 MG/2 ML Ampul IV (19:29)
[2025-04-15] MEDS: MELATONIN 3 MG TABLET PO (22:07)
[2025-04-15] MEDS: PANTOPRAZOLE SODIUM IV (22:36)
[2025-04-15] MEDS: NORMAL SALINE 0.9% IV (22:36)
[2025-04-16] VITALS (8 sets, daily range): BP systolic 130–146; BP diastolic 64–85; PULSE 62–91; RESP 16–22; TEMP 36.3–36.9; O2SAT 94–97
[2025-04-16 06:36] LABS: Hematocrit 45.2 % (37-47); Hemoglobin 14.9 g/dL (12.0-15.0); Mean Corp Hgb Conc 33.0 g/dL (32-36); Mean Corpuscular Volume 93.4 fL (81-99); Mean Platelet Vol. 9.6 fl (6.2-12.0); Platelet Count 315 K/mm3 (150-450); RBC Distribution Width CV 12.7 % (11.6-14.6); RBC Distribution Width SD 43.3 fl (35.1-43.9); Red Blood Count 4.84 M/mm3 (4.2-5.4); White Blood Count 6.3 K/mm3 (4.4-11.0)
[2025-04-16 07:39] LABS: Anion Gap 12 (5-15); BUN 8 mg/dL (4-19); BUN/Creat Ratio 14.7 RATIO (10-20); Calcium,Total 9.1 mg/dL (7.6-11.0); Carbon Dioxide 21.0 mmol/L (21.0-32.0); Chloride 107 mmol/L (98-108); Estimated Creatinine Clearance 123.86 ml/min (50-250); Glucose 95 mg/dL (70-99); Potassium 3.8 mmol/L (3.3-5.1)
[2025-04-16 09:26] LABS: Troponin T High Sensitivity < 6 ng/L (<=14)
[2025-04-16 09:49] LABS: Troponin T High Sens 2 HR < 6 ng/L (<=14)
[2025-04-16] MEDS: Fluticasone 0.05% 1 SPRAY NASAL.SRY NASAL (10:34)
[2025-04-16] MEDS: levETIRAcetam IV 1,500 MG in 0.9% Normal Saline (100mL Bag) 100 ML 460 MG IV (10:39)
[2025-04-16] MEDS: levoFLOXacin IV 750 MG/150 ML BAG 100 MG IV (11:15)
[2025-04-16 12:04] LABS: Troponin T High Sens 4 HR < 6 ng/L (<=14)
--- NOTE | 2025-04-16 12:55 | PN_ITS ---
Subjective Subjective Patient seen and examined. She was admitted with a complaint of incessant nausea and vomiting. She was recently started on oral azithromycin on outpatient basis for pneumonia, and this was thought to be the possible cause of her symptoms. Objective Data Objective Data Vital Signs: Vital Signs Temp Pulse Resp BP Pulse Ox O2 Del Method O2 Flow Rate 98.0 F 62 18 132/84 H 94 Room Air 2 04/16/25 07:53 04/16/25 12:48 04/16/25 12:48 04/16/25 07:53 04/16/25 07:53 04/16/25 07:53 04/16/25 03:20 Oxygen Flow Rate (L/min) 2 Oxygen Delivery Method Room Air Weight: 180 lb 5.41 oz Body Mass Index (BMI) 26.6 Intake & Output: Intake and Output for Last 24 Hours 04/14/25 04/15/25 04/16/25 23:59 23:59 23:59 Intake Total 350 / 350 165 / 165 Balance 350 / 350 165 / 165 Lab / Micro Data 04/16/25 06:10 04/16/25 06:10 Labs: Laboratory Results - last 24 hr 04/15/25 17:33: WBC 7.2, RBC 4.90, Hgb 15.3 H, Hct 45.9, MCV 93.7, MCH 31.2, MCHC 33.3, RDW Std Deviation 43.8, RDW Coeff of Bere 12.7, Plt Count 327, MPV 9.6, Immature Gran % (Auto) 0.300, Neut % (Auto) 70.2 H, Lymph % (Auto) 21.7, Drew % (Auto) 6.4, Eos % (Auto) 0.8, Baso % (Auto) 0.6, Absolute Neuts (auto) 5.0, Absolute Lymphs (auto) 1.56, Nucleated RBC % 0, Sodium 142, Potassium 3.5, Chloride 106, Carbon Dioxide 21.9, Anion Gap 14, BUN 6, Creatinine 0.55 L, Estim Creat Clear Calc 129.45, Est GFR (MDRD) Non-Af 108, BUN/Creatinine Ratio 11.4, G lucose 105 H, Calcium 9.4, Phosphorus 3.1, Magnesium 2.2 04/15/25 18:51: POC Glucose 103 04/16/25 06:10: WBC 6.3, RBC 4.84, Hgb 14.9, Hct 45.2, MCV 93.4, MCH 30.8, MCHC 33.0, RDW Std Deviation 43.3, RDW Coeff of Bere 12.7, Plt Count 315, MPV 9.6, Sodium 141, Potassium 3.8, Chloride 107, Carbon Dioxide 21.0, Anion Gap 12, BUN 8, Creatinine 0.58 L, Estim Creat Clear Calc 123.86, Est GFR (MDRD) Non-Af 106, BUN/Creatinine Ratio 14.7, Glucose 95, Calcium 9.1, Troponin T High Sens < 6 04/16/25 09:11: Troponin T Hi Sens 2 Hr < 6 04/16/25 11:10: Troponin T Hi Sens 4Hr < 6 Physical Exam Const alert, oriented x3 and no apparent distress HEENT normocephalic, head/scalp atraumatic, moist oral mucous membranes and oropharynx normal Eyes EOMs intact bilaterally Neck no lymphadenopathy and supple Lymph Lymphatic: no lymphedema noted Resp Resp Narrative: mildly diminished breath sounds bibasally, no wheezes or crackles. On room air. Cardio regular rate, regular rhythm, S1 normal heart sound, S2 normal heart sound and no murmurs GI normal to inspection, nondistended, normoactive bowel sounds, soft to palpation, non-tender and non-distended Extremity normal capillary refill Neuro CN's II-XII intact bilaterally and no focal motor deficits Motor Exam: strength 5/5 throughout and general weakness Psych thought process normal and cooperative Appearance: appropriate Assessment & Plan Assessment/Plan (1) Intractable nausea and vomiting: (2) Pneumonia: PLAN: Plan #Intractable nausea and vomiting * resolving. Has not vomited since admissin. IV zofran and compazine prn * tolerating a diet * #Community acquired pneumonia * Was seen in the ED for chest discomfort and shortness of breath as well as cough on 04/14/2025. Chest x-ray then showed right lower lobe airspace disease concerning for pneumonitis versus pneumonia. * Was discharged and then on oral azithromycin. Now on IV antibiotics and to complete a 7-day course of antibiotics. #Chest pain * Patient complaining of retrosternal chest pain.It seems to be related to MSK pain from the coughing from pneumonia * she however tells me she had a history of a mild heart attack years ago * EKG showed no acute ST changes. * out of an abundance of precaution, will check troponin series. * #Seizure disorder: * there was concern for breakthrough seizure in the ED. on IV Keppra. Nausea has abated, so will resume PO keppra. #GERD: on PPI DVT prophylaxis: lovenox Code status: full code Charges/Coding Visit Charges Inpatient E&M: 77252 Subs Hosp L2
[2025-04-16] MEDS: PANTOPRAZOLE SODIUM IV ×2 (13:00→21:34)
[2025-04-16] MEDS: NORMAL SALINE 0.9% IV ×2 (13:00→21:34)
[2025-04-16] MEDS: Ketorolac 30 MG/ML Syringe IV ×2 (15:57→22:12)
--- NOTE | 2025-04-16 19:15 | EKG12_ITS ---
Test Reason : CP Blood Pressure : */* mmHG Vent. Rate : 78 BPM Atrial Rate : 78 BPM P-R Int : 162 ms QRS Dur : 92 ms QT Int : 392 ms P-R-T Axes : 70 60 69 degrees QTcB Int : 446 ms Normal sinus rhythm Normal ECG When compared with ECG of 15-Apr-2025 18:54, MANUAL COMPARISON REQUIRED DATA IS UNCONFIRMED Confirmed by TRACY RICHARDSON, ANISA ([id number]), editor magazine MARQUIS AVILA ([id number]) on 04/18/2025 6:09:27 AM Referred By: Confirmed By: ANISA MOLINA MD
[2025-04-16] MEDS: 0.9% Saline Lock 10 ML Syringe IV ×2 (19:40→22:12)
[2025-04-16] MEDS: Lidocaine 2% Viscous15 ML UDC 15 ML PO (20:55)
[2025-04-16] MEDS: MELATONIN 3 MG TABLET PO (20:55)
[2025-04-16] MEDS: levETIRAcetam IV 1,500 MG in 0.9% Normal Saline (100mL Bag) 100 ML 480 MG IV (20:56)
[2025-04-17 04:55] VITALS: BP 128/78; PULSE 79; RESP 16; TEMP 36.3; O2SAT 96
[2025-04-17 05:59] LABS: Hematocrit 42.7 % (37-47); Hemoglobin 13.8 g/dL (12.0-15.0); Immature Granulocytes Count 0.030 X10^3/uL (0.0-0.0); Mean Corp Hgb Conc 32.3 g/dL (32-36); Mean Corpuscular Volume 96.8 fL (81-99); Mean Platelet Vol. 9.6 fl (6.2-12.0); NRBC Flagged by Analyzer 0 % (0-5); Platelet Count 287 K/mm3 (150-450); RBC Distribution Width CV 12.8 % (11.6-14.6); RBC Distribution Width SD 45.3 fl (35.1-43.9); Red Blood Count 4.41 M/mm3 (4.2-5.4); White Blood Count 5.9 K/mm3 (4.4-11.0)
[2025-04-17 06:15] LABS: Anion Gap 13 (5-15); BUN 12 mg/dL (4-19); BUN/Creat Ratio 20.0 RATIO (10-20); Calcium,Total 8.6 mg/dL (7.6-11.0); Carbon Dioxide 20.2 mmol/L (21.0-32.0); Chloride 109 mmol/L (98-108); Estimated Creatinine Clearance 115.87 ml/min (50-250); Glucose 130 mg/dL (70-99); Potassium 3.3 mmol/L (3.3-5.1)
[2025-04-17 06:47] VITALS: PULSE 75; RESP 20; O2SAT 98
--- NOTE | 2025-04-17 08:41 | PCM.PN.HOSP ---
Reason for Visit Chief Complaint: Intractable nausea and vomiting Subjective Subjective Nausea vomiting and shortness of breath improved. Objective Data Objective Data Vital Signs: Vital Signs Temp Pulse Resp BP Pulse Ox O2 Del Method O2 Flow Rate 36.3 C L 75 20 H 128/78 H 98 Room Air 2 04/17/25 04:55 04/17/25 06:47 04/17/25 06:47 04/17/25 04:55 04/17/25 06:47 04/17/25 07:55 04/17/25 06:47 Oxygen Flow Rate (L/min) 2 Oxygen Delivery Method Room Air Weight: 81.8 kg Body Mass Index (BMI) 26.6 Intake & Output: Intake and Output for Last 24 Hours 04/15/25 04/16/25 04/17/25 23:59 23:59 23:59 Intake Total 350 / 350 880 / 880 180 / 180 Output Total 0 / 0 Balance 350 / 350 880 / 880 180 / 180 Lab / Micro Data 04/17/25 04:57 04/17/25 04:57 Labs: Laboratory Results - last 24 hr 04/16/25 06:10: Troponin T High Sens < 6 04/16/25 09:11: Troponin T Hi Sens 2 Hr < 6 04/16/25 11:10: Troponin T Hi Sens 4Hr < 6 04/17/25 04:57: WBC 5.9, RBC 4.41, Hgb 13.8, Hct 42.7, MCV 96.8, MCH 31.3, MCHC 32.3, RDW Std Deviation 45.3 H, RDW Coeff of Bere 12.8, Plt Count 287, MPV 9.6, Immature Gran % (Auto) 0.500, Neut % (Auto) 58.2, Lymph % (Auto) 32.7, [place] % (Auto) 6.9, Eos % (Auto) 1.2, Baso % (Auto) 0.5, Absolute Neuts (auto) 3.5, Absolute Lymphs (auto) 1.94, Nucleated RBC % 0, Sodium 142, Potassium 3.3, Chloride 109 H, Carbon Dioxide 20.2 L, Anion Gap 13, BUN 12, Creatinine 0.62 L, Estim Creat Clear Calc 115.87, Est GFR (MDRD) Non-Af 104, BUN/Creatinine Ratio 20.0, Glucose 130 H, Calcium 8.6 Physical Exam Const alert and no apparent distress HEENT head/scalp atraumatic and moist oral mucous membranes Resp normal respiratory effort, no retractions, no use of accessory muscles and clear to auscultation bilaterally Cardio regular rate, regular rhythm, S1 normal heart sound and S2 normal heart sound GI normal to inspection, nondistended, normoactive bowel sounds, soft to palpation, non-tender and non-distended Extremity normal to inspection, full ROM and no clubbing, cyanosis or edema Neuro oriented x3, CN's II-XII intact bilaterally and moves all extremities Sensorium / Orientation: awake and alert Assessment & Plan Assessment/Plan (1) Intractable nausea and vomiting: (2) Pneumonia: PLAN: Plan Intractable nausea and vomiting resolving. Has not vomited since admissin. IV zofran and compazine prn tolerating diet Suspected pneumococcal pneumonia Chest x-ray then showed right lower lobe airspace disease concerning for pneumonitis versus pneumonia. DC with levofloxacin for 5 days. Chest pain Patient complaining of retrosternal chest pain.It seems to be related to MSK pain from the coughing from pneumonia she however tells me she had a history of a mild heart attack years ago EKG showed no acute ST changes. troponins negative. Chronic conditions: seizure disorder: there was concern for breakthrough seizure in the ED. on IV Keppra. Nausea has abated, so will resume PO keppra. GERD: on PPI DVT prophylaxis: lovenox
[2025-04-17 09:21] VITALS: BP 141/79; PULSE 81; RESP 20; TEMP 36.7; O2SAT 94
[2025-04-17] MEDS: Ketorolac 30 MG/ML Syringe IV (09:22)
[2025-04-17] MEDS: 0.9% Saline Lock 10 ML Syringe IV (09:23)
[2025-04-17] MEDS: Fluticasone 0.05% 1 SPRAY NASAL.SRY NASAL (09:26)
[2025-04-17] MEDS: levETIRAcetam IV 1,500 MG in 0.9% Normal Saline (100mL Bag) 100 ML 460 MG IV (09:33)
[2025-04-17] MEDS: levoFLOXacin IV 750 MG/150 ML BAG 100 MG IV (10:35)
[2025-04-17 13:19] VITALS: PULSE 91; RESP 14
--- NOTE | 2025-04-17 13:57 | CASEMGMT ---
BRAN Met with patient to complete BRAN form. BRAN form and its content were verbally explained and patient's questions were answered to the best of my ability.? Patient voiced understanding and signed BRAN form.? Patient provided a copy of signed BRAN form and original placed in patient's chart.? Patient had no further questions. Naomi Francis, Discharge Planning Asst
--- NOTE | 2025-04-17 13:58 | DS.PCM_ITS ---
Providers Date of Admission: 04/15/25 Primary Care Physician: Dr. Amandeep Loredo, DO Reason For Visit: INTRACTABLE N/V, CONCERN FOR SEIZURE, CONCERN FOR Diagnosis Discharge Diagnosis (1) Intractable nausea and vomiting: Status: Acute Code(s): R11.2 - Nausea with vomiting, unspecified (2) Pneumonia: Status: Acute Code(s): J18.9 - Pneumonia, unspecified organism Plan Intractable nausea and vomiting * resolving. Has not vomited since admissin. IV zofran and compazine prn * tolerating diet Suspected pneumococcal pneumonia * Chest x-ray then showed right lower lobe airspace disease concerning for pneumonitis versus pneumonia. * DC with levofloxacin for 5 days. Chest pain * Patient complaining of retrosternal chest pain.It seems to be related to MSK pain from the coughing from pneumonia * she however tells me she had a history of a mild heart attack years ago * EKG showed no acute ST changes. * troponins negative. Chronic conditions: * seizure disorder: there was concern for breakthrough seizure in the ED. on IV Keppra. Nausea has abated, so will resume PO keppra. * GERD: on PPI DVT prophylaxis: lovenox Medications at Discharge Home Medications [id number] 8 mg-folic 400 mcg-K 50 mcg-lutein 300 mcg tablet 1 tab PO DAILY supplement 03/21/19 levetiracetam 750 mg tablet 1,500 mg PO Q12H seizures 12/04/19 fluticasone propionate 50 mcg/actuation nasal spray,suspension (Flonase Allergy Relief) 1 spray intranasal DAILY 08/24/22 cyclobenzaprine 10 mg tablet 10 mg PO TID PRN Muscle Spasm #20 TABLETS 05/11/24 gabapentin 400 mg capsule 800 mg PO Q12H 09/04/24 omeprazole 20 mg capsule,delayed release 20 mg PO BID 09/04/24 tizanidine 2 mg capsule 2 mg PO TID PRN muscle spasticity #14 caps 10/21/24 metaxalone 800 mg tablet 800 mg PO TID 7 days #21 tabs 03/14/25 oxycodone-acetaminophen 5 mg-325 mg tablet 1 tab PO Q4H PRN Pain 04/15/25 guaifenesin 600 mg tablet, extended release 12 hr (Mucinex) 600 mg PO BID #10 tabs 04/17/25 levofloxacin 750 mg tablet 750 mg PO Q24H #5 tabs 04/17/25 Hospital Course Operations None Procedures None Summary of Care Provided Minutes Spent on Discharge: 32 Hospital Course: Patient presents with nausea and vomiting shortness of breath. She was found to have pneumonia and started on IV levofloxacin. Nausea vomiting is improved as well as shortness of breath. Patient did have chest pain but did have serial troponins that was negative. [place] to be related with costochondritis due to the coughing. Patient be discharged with 5-day course of levofloxacin. Weight / BMI Weight Weight: 81.8 kg Body Mass Index (BMI) 26.6 ABG / Lab / Microbiology Data 04/17/25 04:57 04/17/25 04:57 Laboratory: Laboratory Results - last 24 hr 04/17/25 04:57: WBC 5.9, RBC 4.41, Hgb 13.8, Hct 42.7, MCV 96.8, MCH 31.3, MCHC 32.3, RDW Std Deviation 45.3 H, RDW Coeff of Bere 12.8, Plt Count 287, MPV 9.6, Immature Gran % (Auto) 0.500, Neut % (Auto) 58.2, Lymph % (Auto) 32.7, [place] % (Auto) 6.9, Eos % (Auto) 1.2, Baso % (Auto) 0.5, Absolute Neuts (auto) 3.5, Absolute Lymphs (auto) 1.94, Nucleated RBC % 0, Sodium 142, Potassium 3.3, C hloride 109 H, Carbon Dioxide 20.2 L, Anion Gap 13, BUN 12, Creatinine 0.62 L, Estim Creat Clear Calc 115.87, Est GFR (MDRD) Non-Af 104, BUN/Creatinine Ratio 20.0, Glucose 130 H, Calcium 8.6 D/C Instructions DC O2, CPAP, BIPAP Needs Home O2 Discharge instructions: No Meaningful Use Info Meaningful Use Meaningful Use Diagnoses (Choose all that apply): None applicable Discharge Plan Admission Admit Date/Time: 04/15/25 18:33 Primary Reason for Your Visit: pneumonia Attending Provider: Alfred Sotomayor Primary Care Provider: Amandeep Loredo Consulting Providers: Hany Gooden; Karla Elizondo Discharge Orders/Prescriptions Prescriptions: New guaifenesin [Mucinex] 600 mg Tablet Extended Release 12hr 600 mg PO BID Qty: 10 0RF levofloxacin 750 mg tablet 750 mg PO Q24H Qty: 5 0RF Continued [id number] K-lut 1 EACH tablet 1 tab PO DAILY levetiracetam 750 MG tablet 1,500 mg PO Q12H fluticasone propionate [Flonase Allergy Relief] 50 mcg/actuation [place],Suspension 1 spray INTRANASAL DAILY Rx Instructions: administer into each nostril cyclobenzaprine 10 mg tablet 10 mg PO TID PRN (Reason: Muscle Spasm) Qty: 20 0RF omeprazole 20 mg capsule,delayed release(DR/EC) 20 mg PO BID gabapentin 400 mg capsule 800 mg PO Q12H tizanidine 2 mg capsule 2 mg PO TID PRN (Reason: muscle spasticity) Qty: 14 0RF oxycodone-acetaminophen 5-325 mg tablet 1 tab PO Q4H PRN (Reason: Pain) metaxalone 800 mg tablet 800 mg PO TID 7 Days Qty: 21 0RF Discontinued oxycodone-acetaminophen [Percocet] 5-325 mg tablet 1 tab PO Q6H PRN (Reason: pain) 5 Days Qty: 20 0RF levetiracetam [Keppra] 1,000 mg tablet 1,000 mg PO Q12H oxycodone-acetaminophen [Percocet] 5-325 mg tablet 1 tab PO Q6H PRN (Reason: pain) 4 Days Qty: 12 0RF azithromycin 250 mg tablet 250 mg PO DAILY Qty: 4 0RF Referrals / Follow Up: Amandeep Loredo DO [Primary Care Provider] - Within 2 Weeks Disposition Disposition (needs filled in before D/C Order can be placed): Home, Self Care Charges/Coding Visit Charges Inpatient E&M: 15441 Disch Hosp >30min
[2025-04-17 14:02] VITALS: BP 167/92; PULSE 79; RESP 18; TEMP 36.8; O2SAT 97
--- NOTE | 2025-04-17 15:19 | PHA.DC_ITS ---
Pharmacy [facility] Counseling Pharmacy Service has performed discharge medication reconciliation and counseling for this patient. 1. LEVOFLOXACIN 750MG PO DAILY X 5 DAYS 2. GUAIFENESIN 600MG PO BID X 5 DAYS The patient's discharge medication list was reviewed for discrepancies and discrepancies were resolved. The patient was counseled on the following discharge medications and changes in medications for homegoing were reviewed. The Reason for Use, instructions for use, and potential side effects were reviewed for all new medications. The patient's questions regarding all of their medications were answered. The patient was able to verbally demonstrate an understanding of their discharge medications. Medications at Discharge Home Medications [id number] 8 mg-folic 400 mcg-K 50 mcg-lutein 300 mcg tablet 1 tab PO DAILY supplement 03/21/19 levetiracetam 750 mg tablet 1,500 mg PO Q12H seizures 12/04/19 fluticasone propionate 50 mcg/actuation nasal spray,suspension (Flonase Allergy Relief) 1 spray intranasal DAILY 08/24/22 cyclobenzaprine 10 mg tablet 10 mg PO TID PRN Muscle Spasm #20 TABLETS 05/11/24 gabapentin 400 mg capsule 800 mg PO Q12H nerve pain 09/04/24 omeprazole 20 mg capsule,delayed release 20 mg PO BID reflux 09/04/24 tizanidine 2 mg capsule 2 mg PO TID PRN muscle spasticity #14 caps 10/21/24 metaxalone 800 mg tablet 800 mg PO TID pain 7 days #21 tabs 03/14/25 oxycodone-acetaminophen 5 mg-325 mg tablet 1 tab PO Q4H PRN Pain 04/15/25 guaifenesin 600 mg tablet, extended release 12 hr (Mucinex) 600 mg PO BID #10 tabs 04/17/25 levofloxacin 750 mg tablet 750 mg PO Q24H #5 tabs 04/17/25
--- NOTE | 2025-04-17 15:33 | CASEMGMT ---
Patient has order for discharge. RN CM in to discuss needs at discharge. Patient denies needs or help at discharge. Patient had no further questions or concerns.
--- NOTE | 2025-04-17 15:57 | CHAPLAIN ---
Type of Pastoral Visit _x__ Initial Visit ___ Follow-up Visit ___ On-call Visit ___ General Patient Visit ___ Spiritual Assessment ___ Family Conference ___ Bereavement ___ Rapid Response ___ Code Blue ___ Other (describe below) Pastoral Care Referral From _x__ Patient ___ Family ___ Nurse ___ Physician ___ Photoradio Operator ___ Electronic Design Engineer ___ Other (describe below) Sacrament/Intervention _x__ Active listening ___ Anointing ___ Orthodoxy ___ Bereavement ___ Communion _x__ Miriam exploration ___ ___ Life review _x__ Prayer ___ Reconciliation ___ Sacrament of Sick _x__ Supportive presence ___ Wedding ___ Other (describe below) Pastoral Comments patient is welcoming and thanks the claims configuration analyst several times for coming; pt admits to having been afraid at the weekend turn of events on her health; pt acknowledges that experience while seeing improvements since then; pt seeks prayer for support; pt acknowledges that she wanted someone to talk with and be available but that prayer is her best choice of service; pt gives some minimal life review; pt acknowledges that she is feeling better
== END 2025-04-17 17:04 | disposition home or self-care (01) ==
LOC: ED 18:35 → MS3 19:05 → PCU 19:06
PROVIDERS: Student in an Organized Health Care Education/Training Program; Admitting Provider Hospitalist; Emergency Provider Emergency Medicine; PCP Family Medicine
DX: J18.9 Pneumonia, unspecified organism (principal); G40.909 Epilepsy, unspecified, not intractable, without status epilepticus; G89.29 Other chronic pain; F17.210 Nicotine dependence, cigarettes, uncomplicated; R07.89 Other chest pain; R19.7 Diarrhea, unspecified; Z79.899 Other long term (current) drug therapy; R11.2 Nausea with vomiting, unspecified; J45.909 Unspecified asthma, uncomplicated; Z79.51 Long term (current) use of inhaled steroids; I25.2 Old myocardial infarction; Z86.74 Personal history of sudden cardiac arrest; K21.9 Gastro-esophageal reflux disease without esophagitis; M54.9 Dorsalgia, unspecified
CPT/HCPCS: 36415; 80048; 82962; 83735; 84100; 84484; 85025; 85027; 93005; 94640; 94668; 96365; 96366; 96367; 96368; 96372; 96375; 96376; 99221; 99285; A4216; G0378; J2405

== ENCOUNTER 2025-05-16 18:50 | Emergency (ER) | payer MEDICARE, MEDICAID, SELFPAY ==
[2025-05-16 18:50] VITALS: BP 115/75; PULSE 76; RESP 18; TEMP 35.7; O2SAT 96; BMI 27.4
--- NOTE | 2025-05-16 20:06 | ED.RN ---
Called for pt at 2001, no answer.
--- OUTSIDE RECORDS SUMMARY | 2025-05-16 20:21 | XMS RPT_ITS | CCD ---
Author Organization [facility] Care Team Providers Care Photographic Process Worker Name Role Phone Amandeep Loredo Primary Care Provider [phone] Dr. Ari Sotomayor Primary Care Provider Dr. Ari Sotomayor Referring Provider LILIAN Mcgraw Attending Provider [phone] Amandeep Loredo DO Primary Care Provider Amandeep Loredo DO Primary Care Provider DR AMANDEEP LOREDO DO Primary Care Physician [phone] BELINDA COVARRUBIAS MD Attending Unavailable DR AMANDEEP LOREDO DO Primary Care Unavailab le Amandeep Loredo DO Primary Care Provider Unavailable Primary Care [...] Provider Dr. Zain Carvajal MD Emergency Provider Dr. Zain Carvajal MD Attending Provider Dr. Alfred Parkinson DO Emergency Provider Jordin Chisholm MD Emergency Provider Dr. Hany Gooden DO Admit Provider Dr. Hany Gooden DO Other Provider Dr. Alfred Sotomayor DO Attending Provider Mikhail RICHARDSON, Dr. Karla Le Other Provider [phone] Mikhail RICHARDSON, Dr. Karla Le Attending Provider Dr. Alfred Sotomayor DO Other Provider Jordin hCisholm Attending Unavailable Petrilla, Amandeep Primary Care Unavailable Kenny Kaye Attending Unavailable Petrilla, Amandeep Primary Care Unavailable Hany Gooden Admitting Unavailable Hany Gooden Consulting Unavailable Alfred Sotomayor Attending Unavailable Petrilla, Amandeep Primary Care Unavailable Koram, Karla Mimi Consulting Unavailable Mattie Jeffrey Attending Unavailable Petrilla, Amandeep Primary Care Unavailable Trevor Pisano Attending Unavailable Petrilla, Amandeep Primary Care Unavailable Petrilla, Amandeep Referring Unavailable Rodolfo Camp Attending Unavailable ZoëJosephRodolfo Referring Unavailable Petrilla, Amandeep Primary Care Unavailable Hany Gooden Consulting Unavailable Hany Gooden Admitting Unavailable Alfred Sotomayor Attending Unavailable Petrilla, Amandeep Primary Care Unavailable Koram, Karla Mimi Consulting Unavailable Alfred Sotomayor Consulting Unavailable Mikhail Karla Mimi Attending Unavailable Hany Gooden Attending Unavailable Luis Angel Morales Attending Unavailable MoralesLuis Angel Referring Unavailable Petrilla, Amandeep Primary Care Unavailable Alfred Parkinson Attending Unavailable Petrilla, Amandeep Primary Care Unavailable Zain Carvajal Attending Unavailable Petrilla, Amandeep Primary Care Unavailable Petrilla, Amandeep Primary Care Unavailable Franki Flynn Attending Unavailable Narciso Baron Attending Unavailable Petrilla, Amandeep Primary Care Unavailable Allergies Allergy Classification Reported Allergen(s) Allergy Type Date of Onset Reaction(s) Facility Acetaminophen / HYDROcodone (1 source) Acetaminophen / HYDROcodone Drug Allergy 04-21-20 12 [facility] acetaminophen / propoxyphene (1 source) acetaminophen / propoxyphene Drug Allergy 04-21-20 12 [facility] Penicillins (antibiotic) (1 source) Penicillins Drug Allergy 07-05-20 02 [facility] Work Phone: (20 sources) Acetaminophen / HYDROcodone Drug Allergy 04-21-20 12 Itching, Rash [place], [place] (17 sources) Adhesive Tape; Translations: [adhesive tape] Propensity to adverse reactions to drug 04-24-20 15 Other [place], [place] Comment on above: BLISTERING (20 sources) bee venom Propensity to adverse reactions to drug 02-01-20 16 Chest tightness [place] (3 sources) Latex Propensity to adverse reactions to drug 04-11-20 19 [place] (5 sources) Penicillins Propensity to adverse reactions to drug 04-24-20 15 Swelling, Rash [place] (20 sources) Propoxyphene; Translations: [propoxyphene] Drug Allergy 04-11-20 19 [place] (2 sources) Barium-Containing Compounds Propensity to adverse reactions to drug 04-24-20 15 [place] (20 sources) Other Propensity to adverse reactions 04-24-20 15 Shortness Of Breath, Other [place] (9 sources) Contrast media Propensity to adverse reactions 03-21-20 22 Vomiting [facility] [place] [facility] (18 sources) HYDROcodone; Translations: [hydrocodone bitartrate] Drug Allergy 03-21-20 22 Itching [facility] [place] [facility] (18 sources) Propoxyphene; Translations: [propoxyphene napsylate] Drug Allergy 03-21-20 22 Rash [facility] [place] [facility] (4 sources) PLASTIC TAPE Allergy to substance 03-21-20 22 blistering [facility] [place] [facility] Work Phone: (15 sources) Penicillins Allergy to substance 05-04-20 22 Anaphylaxis [facility] [place] [facility] (20 sources) Honey bee venom Propensity to adverse reactions 04-11-20 19 [facility] (20 sources) HYDROcodone Drug Allergy 02-01-20 16 [facility] (20 sources) Latex Propensity to adverse reactions 04-11-20 19 [facility] (20 sources) Penicillins Drug Allergy 07-05-20 02 Rash, Swelling [facility] (20 sources) Barium-Containing Compounds Drug Intolerance 04-24-20 15 [facility] (20 sources) Iodinated Contrast Media Drug Intolerance 10-08-19 16 Nausea And Vomiting [facility] (8 sources) Triiodobenzoic Acids Propensity to adverse reactions 02-16-20 23 Vomiting [facility] [place] [facility] (1 source) Acetaminophen / HYDROcodone; Translations: [acetaminophen-hy drocodone] Drug Allergy [facility] (1 source) Contrast media; Translations: [iodinated radiocontrast agents] Allergy to substance [facility] (1 source) Penicillin; Translations: [penicillins] Drug Allergy [facility] (9 sources) Penicillin G Drug Allergy 02-01-20 [facility] (9 sources) Wound Dressing Adhesive Drug Allergy 02-01-20 [facility] (1 source) Penicillins Drug allergy (disorder) 04-15-20 [facility] [place] [facility] (1 source) Iodinated Contrast Media Drug allergy (disorder) 04-15-20 [facility] [place] [facility] (1 source) venom-honey bee Drug allergy (disorder) 04-15-20 [facility] [place] [facility] Medications Current Medications Medication Drug Class(es) Dates Sig (Normalized) Sig (Original) acetaminophen 325 mg / oxyCODONE hydrochloride 5 mg oral tablet (20 sources) Opioid Agonist Start: 04-15-2025 Oxycodone-Acetamin ophen 5-325 mg tablet Active 1 {tbl} PO Q4H as needed for Pain April 15, 2025 12:00am Start: 01-24-2024 End: 05-11-2024 Oxycodone-Acetaminophen (Per cocet) [...] 11/06/2022 11/13/2022 Discontinued (Reorder) Start: 08-24-2022 End: 04-17-2025 Oxycodone-Acetaminophen (Per cocet) 5-325 mg tablet Discontinued 1 {tbl} PO EVERY 6 HOURS as needed for pain 12 4 0 March 14, 2025 April 17, 2025 2:00pm Spasm of back muscles Acute thoracic myofascial strain Muscle spasm of back Strain of muscle and tendon of unspecified wall of thorax, initial encounter Start: 08-24-2022 take 1 tablet by jono [...] 4 HOURS NEEDED as needed for Pain February 22, 2016 12:00am March 01, 2016 2:20pm take 1 tablet by jono th three times daily oxyCODONE-acetaminophen (PERCOCET) 5-325 MG per tablet Take 1 tablet by mouth 3 times daily. 0 Suspended [id number] 200 actuat albuterol 0.09 mg/actuat metered dose [...] 1 tablet, Oral, DAILY, First dose on 05/14/20 at 0900 End: 05-14-2020 Multiple Vitamins-Minerals ( MULTIPLE VITAMINS/WOMENS) TABS Take by mouth 0 05/14/2020 Discontinued (LIST CLEANUP) cetirizine hydrochloride 10 mg oral tablet (11 [...] 01/28/2018 Active ergocalciferol 1.25 mg oral capsule (9 sources) Provitamin D2 Compound Start: 01-21-2023 take 1 capsule by mouth every week Vitamin D, Ergocalciferol, 04476 units capsule Take 50,000 Units by mouth 1 (one) time per week. For 3 total months 4 capsule 2 01/21/2023 Active 60 actuat formoterol fumarate 0.005 mg/actuat / mometasone furoate 0.2 mg/actuat metered dose inhaler (1 source) Corticosteroid, beta2-Adrenergic Agonist Start: 05-14-2020 take 2 puff(s) by inhalation twice daily 2 puff, Inhalation, 2 TIMES DAILY, First dose on 05/14/20 at 0115 Substituted for Fluticasone-Salm eterol (ADVAIR DPI) gabapentin 400 mg oral capsule (20 sources) Anti-epileptic Agent Start: 09-04-2024 take 2 capsules by mouth every twelve hours Gabapentin 400 mg capsule Active 800 mg PO Q12H September 04, 2024 1:00am nerve pain Start: 09-04-2024 take 2 capsules by m outh once daily Gabapentin 400 mg capsule Active [...] MG PO THREE TIMES A DAY 30 10 July 18, 2022 12:00am Start: 03-21-2019 End: [...] 01, 2016 12:00am March 01, 2016 2:06pm 12 hr guaiFENesin 600 mg extended release oral tablet (1 source) Start: 04-17-2025 take 1 tablet by mouth twice daily, then take 1 tablet by mouth every twelve hours Guaifenesin (Mucinex) 600 mg Tablet Extended Release 12hr Active 600 mg PO TWICE A DAY April 17, 2025 12:00am hydrOXYzine pamoate 25 mg oral capsule (9 sources) Antihistamine Start: 11-25-2022 End: 12-07-2022 take 1 capsule by mouth every six hours as needed hydrOXYzine pamoate (Vistaril) 25 MG capsule Take 1 capsule (25 mg) by mouth every 6 hours as needed for itching for up to 10 days. 30 capsule 0 11/27/2022 Active levoFLOXacin 750 mg oral tablet (12 sources) Quinolone Antimicrobial Start: 04-17-2025 take 1 tablet by mouth every twenty-four hours Levofloxacin 750 mg tablet Active 750 mg PO Q24H 5 0 April 17, 2025 12:00am Start: 09-23-2022 End: 05-11-2024 take 1 tablet by mouth once daily Levofloxacin 750 mg tablet Discontinued 750 mg PO DAILY 6 0 September 23, 2022 1:00am May 11, 2024 9:37pm linaclotide 0.29 mg oral capsule (2 sources) Guanylate Cyclase-C Agonist Start: 05-16-2020 take 1 capsule by mouth once daily before breakfast linaclotide (LINZESS) 290 MCG CAPS capsule Take 1 capsule by mouth every morning (before breakfast) 30 capsule 1 05/16/2020 Active Start: 05-15-2020 linaclotide (L INZESS) capsule 290 mcg metaxalone 800 mg oral tablet (3 sources) Start: 03-14-2025 take 1 tablet by mouth three times daily Metaxalone 800 mg tablet Active 800 mg PO THREE TIMES A DAY 21 7 0 March 14, 2025 12:00am pain methocarbamol 750 mg oral tablet (20 sources) [...] Oral, Every 8 hours, First dose on Thu11/06/22 at 2030, Phase II/On Unit Start: 07-18-2022 [...] Active miconazole nitrate 0.02 mg/mg topical powder (13 sources) Azole Antifungal Start: 11-26-2022 End: 11-27-2022 miconazole (Micotin) 2 % powder Apply topically 2 times daily. 71 g 11/27/2022 11:57 AM EDT 11/27/2022 Active Misc. Devices misc (20 sources) Start: 10-13-2022 Misc. Devices misc by Does not apply route ORTHOFIX BONE GROWTH STIMULATOR Location: Cervical Dr[facility] Dr. Serna Please coordinate fitting and education with the patient. 1 Device 10/13/2022 Active Start: 10-13-2022 Misc. Devices misc by Does [...] 1 tablet by mouth in the morning. Active take 1 tablet by mouth in the [...] VITAMINS/WOMENS) TABS Take by mouth 0 Active Wrhyfdbd-Nuw-Wgly-Fa-Lutein (10 sources) Start: 03-21-2019 take 1 tablet by mouth once daily Zlfitjpm-Stm-Qgxo-Fa-Lutein Active 1 TABLET PO DAILY March 20, 2019 11:00pm Start: 03-21-2019 take 1 tablet by jono th once daily Sykqtyrc-Olx-Irms-Fa-Lutein Active 1 TAB LET PO DAILY March 21, 2019 12:00am Czteobbl-Ndk-Gljm-Fa-Vit K-Lut (3 sources) Start: 03-21-2019 take 1 tablet by mouth once daily Wsiuttxv-Tml-Ihha-Fa-Vit K-Lut Active 1 TABLET PO DAILY March 21, 2019 12:00am Start: 03-21-2019 take 1 tablet by jono th once daily Stnedrmh-Ocn-Bdco-Fa-Vit K-Lut Active 1 TABLET PO DAILY March 20, 2019 11:00pm Kgojkbyr-Kqu-Ltox-Fa-Vit K-Lut 1 EACH tablet (4 sources) Start: 03-21-2019 take 1 tablet by mouth once daily Fuwdpmzb-Sqe-Wjxj-Fa-Vit K-Lut 1 EACH tablet Active 1 {tbl} PO DAILY March 21, 2019 12:00am supplement Start: 03-21-2019 take 1 tablet by jono th once daily Joatwiqa-Ybd-Svyj-Fa-Vit K-Lut 1 EACH tablet Active 1 {tbl} [...] massage. 7 g 0 11/03/2022 11/10/2022 Active omeprazole 20 mg delayed release oral capsule (20 sources) Proton Pump Inhibitor Start: 05-31-2019 take 40 mg by mouth once daily Omeprazole Active 40 MG PO DAILY May 31, 2019 10:55pm Start: 03-21-2019 End: 05-31-2019 take 40 mg by mouth twice daily, then take 40 mg by mouth once daily Omeprazole Discontinued 40 MG PO TWICE A DAY 30 14 March 23, 2019 5:57pm May 31, 2019 [...] take 1 capsule by mouth twice daily omeprazole (PriLOSEC) [address] capsule Take 1 capsule (20 mg) by mouth 2 times daily. 180 capsule 1 07/27/2023 Active Start: 08-12-2011 End: 07-27-2023 take 2 capsules by mouth twice daily, then take 2 capsules by mouth once daily Omeprazole 20 MG capsule,delayed release(DR/EC) Discontinued 40 mg PO TWICE A DAY 30 14 0 March 23, 2019 5:57pm May 31, 2019 10:55pm 40 mg twice daily for 14 days then 40 mg daily petrolatum 0.41 mg/mg topica l ointment (11 sources) Start: 11-27-2022 End: 11-27-2023 mineral oil-hydrophilic coretta olatum (Aquaphor) ointment Apply 1 application topically 2 times daily as needed for dry skin. 198 g 0 11/27/2022 11/27/2023 Active Start: 11-25-2022 End: 11-27-2022 mineral oil-hydrophilic coretta olatum (Aquaphor) ointment 1 application sennosides, longterm 8.6 mg oral tablet (4 sources) Start: [...] (20 sources) Central alpha-2 Adrenergic Agonist Start: 10-21-2024 take 1 capsule by mouth three times [...] Oral, 3 TIMES DAILY, First dose on 05/14/20 at 0900 End: 05-14-2020 take 1 tablet [...] Lana 11/06/22 at 2030, Phase II/On Unit Maximum dose [...] EACH PO THREE TIMES A DAY 10 2 July 11, 2018 9:32pm July 13, 2018 [...] HOURS NEEDED as needed for Pain 12 November 10, 2016 12:00am November 10, 2016 [...] 2019 5:56pm take 1 tablet by jono th once daily aspirin 81 MG tablet Take 81 mg by mouth daily 0 Active azithromycin 250 mg oral tablet (2 sources) Macrolide Antimicrobial Start: 04-14-2025 End: 04-17-2025 take 1 tablet by mouth once daily Azithromycin 250 mg tablet Discontinued 250 mg PO DAILY 4 0 April 14, 2025 12:00am April 17, 2025 1:59pm calcium chloride 0.0014 meq/ml / potassium chloride 0.004 meq/ml / sodium chloride 0.103 meq/ml / sodium lactate 0.028 meq/ml injectable solution (3 sources) Start: 11-26-2022 End: 11-27-2022 lactated Ringer's infusion Start: 05-14-2020 End: 05-15-2020 Intravenous, at 75 mL/hr, CO NTINUOUS, Starting 05/14/20 at 0115 cefdinir 300 mg oral capsule (17 sources) Cephalosporin Antibacterial Start: 07-21-2016 End: 07-25-2016 [...] On Unit diazePAM 5 mg oral tablet (17 sources) Benzodiazepine Start: 02-22-2016 End: 03-01-2016 take 1 tablet by mouth every eight hours as needed for muscle spasms Diazepam 5 MG tablet Discontinued 5 mg PO EVERY 8 HOURS as needed for Muscle Spasm 10 February 22, 2016 12:00am March 01, 2016 [...] discharge) docusate sodium 50 mg / sennosides, longterm 8.6 mg oral tablet (1 source) Start: [...] DAILY, First dose on Thu05/14/20 at 0900 [id number] 0.3 ml EPINEPHrine 1 mg/ml auto-injector (17 sources) alpha-Adrenergic Agonist, beta-Adrenergic Agonist, Catecholamine Start: [...] Fluticasone Propionate (Flonase Allergy Relief) 50 mcg/actuation [place],Suspension Active 1 NMA INTRANASAL DAILY August 24, 2022 1:00am administer into each nostril Start: 08-24-2022 take 1 spray(s) nasa l route once daily Fluticasone Propionate (Flonase Allergy Relief) 50 mcg/actuation [place],Suspension Active 1 SPRAY INTRANASAL DAILY August 24, 2022 1:00am administer into each nostril Start: 06-05-2022 End: 02-12-2032 take 1 spray(s) nasal route in the morning fluticasone (Flonase) 50 MCG/ACT nasal spray Administer 1 spray into affected nostril(s) in the morning. 06/05/2022 02/12/2032 Active Start: 05-14-2020 1 spray, Nasal , DAILY, First dose on 05/14/20 at 0900 Start: 01-28-2018 End: 03-09-2029 fluticasone (FLONASE) 50 MCG /ACT nasal spray Indications: Allergic rhinitis, unspecified seasonality, unspecified trigger 1 spray by Nasal route daily 3 Bottle 3 07/01/2019 03/09/2029 Active Start: 03-14-2017 take 1 dose nasal ro [place] twice daily Flonase 50 mcg/inh nasal spray [...] 05/14/20 at 0115, For 1 dose levETIRAcetam 1000 mg oral tablet (20 sources) Start: 09-04-2024 End: 04-17-2025 take 1 tablet by mouth every twelve hours Levetiracetam (Keppra) 1,000 mg tablet Discontinued 1000 mg PO Q12H September 04, 2024 1:00am April 17, 2025 2:00pm Start: 11-27-2022 End: 07-27-2023 take 1.5 tablets by mouth twice daily levETIRAcetam (Keppra) 1000 MG tablet Take 1.5 tablets (1,500 mg) by mouth 2 times daily. 90 tablet 07/27/2023 Active Start: 11-07-2022 End: 11-10-2022 take [...] 12-04-2019 take 2 tablets by mo uth every twelve hours Levetiracetam 750 MG tablet Active 1500 mg PO Q12H December 04, 2019 12:00am seizures Start: 12-04-2019 take 2 tablets by mo [...] 2 times daily. 0 11/27/2022 Discontinued (Reorder) levETIRAcetam (Keppra) 1,500 mg in sodium chloride 0.9 % 100 mL IVPB (2 sources) Start: 11-25-2022 End: 11-27-2022 levETIRAcetam (Keppra) 1,500 mg in sodium chloride 0.9 % 100 mL IVPB levETIRAcetam (Keppra) 2,000 mg in sodium chloride 0.9 % 100 mL IVPB (2 sources) Start: 11-25-2022 End: 11-25-2022 levETIRAcetam (Keppra) 2,000 mg in sodium chloride 0.9 % 100 mL IVPB lidocaine hydrochloride 20 mg/ml mucous membrane topical solution (17 sources) Antiarrhythmic, Amide Local Anesthetic Start: 11-25-2022 End: 11-25-2022 15 mL, Mouth/Throat, Once, On Thu11/25/22 at 2200, For 1 dose Start: 11-17-2022 End: 04-15-2025 Lidocaine 5 % ointment Disco ntinued 1 NMA TOPICAL THREE TIMES A DAY as needed for skin irritation 50 1 November 17, 2022 12:00am April 15, 2025 6:33pm Start: 11-07-2022 End: 11-10-2022 Lidocaine 4 % patch 1 patch Start: 10-03-2022 End: 10-04-2022 lidocaine PF (Xylocaine) 1 % injection Start: 05-13-2020 End: 05-13-2020 lidocaine viscous hcl (XYLOC AYAZ) 2 % solution 15 mL Start: 05-13-2020 End: 05-13-2020 lidocaine viscous hcl (XYLOC AYAZ) 2 % solution 1 ml LORazepam 2 mg/ml injection (20 sources) Benzodiazepine Start: 11-06-2022 End: 11-06-2022 LORazepam (Ativan) injection 0.5 mg Start: 01-15-2015 End: 01-18-2015 take 1 tablet by mouth three times daily as needed for anxiety Lorazepam 1 MG tablet Discontinued 1 mg PO 3 TIMES DAILY NEEDED as needed for Anxiety January 15, 2015 12:00am January 18, 2015 8:44am take 1 tablet by jono th every six hours as needed LORazepam (ATIVAN) [...] On Unit take 1 capsule by mo [facility] once daily as needed Melatonin 10 MG capsule Take 10 mg by mouth Nightly as needed. Active melatonin 10 mg / vitamin b6 10 mg extended release oral tablet (17 sources) Start: 06-21-2019 End: 07-02-2022 take 1 [...] End: 05-13-2020 morphine injection 4 mg nystatin 313802 unt/ml oral suspension (4 sources) Polyene Antifungal Start: 11-25-2022 End: 11-27-2022 nystatin (Mycostatin) 233860 UNIT/ML suspension 500,000 Units Start: 2019 nystatin (MYCO STATIN) 597258 UNIT/ML suspension Half a teaspoon q.i.d. Swish in mouth for a minute or two, then swallow for one week 1 Bottle 1 2019 Active 2 ml ondansetron 2 mg/ml injection (20 sources) Serotonin-3 Receptor Antagonist Start: 11-25-2022 End: 11-25-2022 ondansetron (Zofran) injection 4 mg Start: 05-13-2020 End: 05-13-2020 ondansetron (ZOFRAN) injecti on 4 mg Start: 02-22-2016 End: 05-09-2016 take 1 tablet by mouth every eight hours as needed for nausea Ondansetron 4 MG tablet Discontinued 4 mg PO EVERY 8 HOURS NEEDED as needed for Nausea February 22, 2016 12:00am May 09, 2016 4:52pm Start: 02-22-2015 End: 05-09-2015 take 1 tablet by mouth every eight hours as needed for nausea Ondansetron Hcl 8 MG tablet Discontinued 8 mg PO EVERY 8 HOURS NEEDED as needed for Nausea 20 February 22, 2015 12:00am May 09, 2015 [...] on 11/08/22 at 0700, Recovery & On Unit Do [...] (Elimite) 5 % cream polyethylene glycol 3350 62497 mg powder for oral solution (20 sources) [...] Active promethazine hydrochloride 25 mg oral tablet (5 sources) Phenothiazine Start: 12-01-2023 End: 05-11-2024 take [...] tablet Discontinued 150 mg PO DAILY 30 August 10, 2014 1:00am January 11, 2015 [...] Start: 11-06-2022 End: 11-10-2022 5-250 mL/hr, IntraVENous, [place] N, if patient receiving piggyback infusions and maintenance fluids are not ordered OR KVO fluids to protect IV site / prevent frequent line interruptions/ long duration, Starting on Lana 11/06/22 at 2020, Phase II/On Unit For piggyback infusion, administer [...] Care, After every IV line use, Starting Thu05/14/20 at 0048 Start: 05-13-2020 End: 05-13-2020 0.9 [...] NEEDED as needed for Pain 12 3 February 22, 2019 12:00am February 24, 2019 [...] region traZODone hydrochloride 50 mg oral tablet (18 sources) Serotonin Reuptake Inhibitor Start: 02-01-2016 End: [...] 500 mcg by mouth in the morning. Active Problems Active Problems Problem Classification Problem [...] Chronic Aortic; peripheral; and visceral artery aneurysms (19 sources) Aneurysm of basilar artery; Translations: [Aneurysm of other precerebral arteries] Onset: 2 02-02-2019 Chronic Comment on above: clipped? hx 2 stroke s Asthma (20 sources) Mild intermittent asthma; Translations: [Mild intermittent asthma, uncomplicated] Onset: 2 Chronic Blindness and vision defects (17 sources) Monocular diplopia; Translations: [Diplopia] 02-03-2019 Episodic Cardiac dysrhythmias (17 sources) Paroxysmal atrial fibrillation; Translations: [Paroxysmal atrial fibrillation] 02-02-2019 Chronic Chronic obstructive pulmonary disease and bronchiectasis (20 sources) Chronic bronchitis; Translations: [Unspecified chronic bronchitis] Onset: 9 Resolved: 3 07-01-2019 Chronic Chronic obstructive pulmonary disease and bronchiectasis (17 sources) Bronchitis; Translations: [Bronchitis, not specified as acute or chronic] 04-21-2019 Episodic Complication of device; implant or graft (2 sources) Finding of gastrointestinal device; Translations: [Presence of gastric pacemaker] Onset: 0 05-15-2020 Episodic Disorders of teeth and jaw (17 sources) Carious exposure of pulp ; Translations: [Dental caries, unspecified] 07-08-2021 Episodic E Codes: Adverse effects of medical drugs (9 sources) Adverse reaction to substance; Translations: [Adverse [...] (primary) hypertension] Chronic Fever of unknown origin (17 sources) Fever; Translations: [Fever, unspecified] 02-04-2022 Episodic Fluid and electrolyte disorders (20 sources) Mild dehydration; Translations: [Dehydration] 02-04-2022 Episodic Fracture of upper limb (14 sources) Fracture of phalanx of finger; Translations: [Fracture of unspecified phalanx of unspecified finger, initial encounter for closed fracture] 07-06-2022 Episodic Gastritis and duodenitis (1 source) Chronic superficial gastritis; Translations: [Chronic superficial gastritis without bleeding] 07-27-2023 Chronic Gastritis and duodenitis (17 sources) Gastritis; Translations: [Gastritis, unspecified, without bleeding] 02-23-2019 Episodic Genitourinary symptoms and ill-defined conditions (20 sources) Retention of urine; Translations: [Dysuria] Onset: 0 Resolved: 3 09-17-2019 Episodic Headache; including migraine (20 sources) Migraine; Translations: [Migraine, unspecified, not intractable, without status migrainosus] Onset: 2 Resolved: 3 04-24-2015 Chronic Inflammation; infection of eye (except that caused by tuberculosis or sexually transmitteddisease) (7 sources) External hordeolum; Translations: [Hordeolum externum unspecified eye, unspecified eyelid] 05-25-2023 Episodic Intestinal infection (20 sources) Clostridium difficile colitis; Translations: [Enterocolitis due to Clostridium difficile, not specified as recurrent] 06-19-2020 Episodic Mood disorders (20 sources) Recurrent major depression; Translations: [Depressive disorder] Onset: 5 04-24-2015 Chronic Nausea and vomiting (20 sources) Nausea and vomiting; Translations: [Nausea, vomiting and diarrhea] Onset: 0 Resolved: 0 05-15-2020 Episodic Neoplasms of unspecified nature or uncertain behavior (17 sources) Neoplasm of uncertain behavior of urinary [...] Onset: 7 10-05-2016 Chronic Other circulatory disease (17 sources) History of cerebrovascular accident without residual deficits; Translations: [Personal history of transient ischemic attack (TIA), and cerebral infarction without residual deficits] 02-02-2019 Episodic Other circulatory disease (1 source) History of cerebrovascular accident 03-14-2017 Episodic Other circulatory disease (3 sources) H/O: atrial fibrillation; Translations: [Personal history of other diseases of the circulatory system] 03-14-2025 Episodic Other circulatory disease (2 sources) Elevated blood pressure; Translations: [Elevated blood-pressure reading, without diagnosis of hypertension] 04-14-2025 Episodic Other connective tissue disease (17 sources) Muscle spasm of cervical muscle of neck; Translations: [Other muscle spasm] 06-22-2019 Episodic Other connective tissue disease (17 sources) Iliotibial band friction syndrome; Translations: [Iliotibial band syndrome, unspecified leg] 05-31-2019 Episodic Other connective tissue disease (10 sources) Muscle weakness of limb; Translations: [Other symptoms and signs involving the musculoskeletal system] 02-02-2019 Episodic Other connective tissue disease (17 sources) History of lumbar fusion; Translations: [Arthrodesis status] 02-02-2019 Episodic Other connective tissue disease (17 sources) Bilateral spasm of muscle of calves; Translations: [Other muscle spasm] 01-04-2020 Episodic Other connective tissue disease (15 sources) Hand pain; Translations: [Pain in right hand] 05-12-2022 Episodic Other connective tissue disease (20 sources) Spasm; Translations: [Other muscle spasm] Onset: 0 Resolved: 3 10-30-2022 Episodic Other connective tissue disease (2 sources) Pain in right lower limb; Translations: [Pain in right leg] Episodic Other connective tissue disease (7 sources) Monoparesis - leg; Translations: [Other symptoms and signs involving the musculoskeletal system] 02-02-2019 Episodic Other connective tissue disease (6 sources) Calcaneal spur; Translations: [Calcaneal spur, unspecified foot] 11-18-2023 Episodic Other connective tissue disease (6 sources) Osteophyte of bone; Translations: [Other enthesopathy of unspecified foot and ankle] 11-18-2023 Episodic Other diseases of kidney and ureters (17 sources) Kidney disease; Translations: [Disorder of kidney and ureter, unspecified] 07-21-2021 Episodic Other disorders of stomach and duodenum (20 sources) Gastroparesis syndrome; Translations: [Gastroparesis] Onset: 6 10-17-2015 Episodic Other disorders of stomach and duodenum (17 sources) Nondiabetic gastroparesis; Translations: [Gastroparesis] 02-02-2019 Episodic [...] injuries and conditions due to external causes (17 sources) Closed injury of head; Translations: [Unspecified injury of head, initial encounter] 02-03-2019 Episodic Other injuries and conditions due to external causes (14 sources) Crushing injury; Translations: [Other injury of unspecified body region, initial encounter] 07-06-2022 Episodic Other injuries and conditions due to external causes (7 sources) Obstruction of esophagus; Translations: [Food in esophagus causing other injury, initial encounter] 05-31-2019 Episodic Other injuries and conditions due to external causes (4 sources) Injury of right knee; Translations: [Other specified injuries of right lower leg, initial encounter] 08-15-2024 Episodic Other injuries and conditions due to external causes (3 sources) Other specified injuries of thorax, initial encounter; Translations: [Contusion of rib on right side] 03-29-2022 Episodic Other lower respiratory disease (15 sources) Cough; Translations: [Cough] 08-29-2022 Episodic Other lower respiratory disease (1 source) Shortness of breath; Translations: [Shortness of breath] Onset: 5 Episodic Other nervous system disorders (1 source) Chronic back pain greater than three months duration Onset: 6 Resolved: 7 10-05-2016 Chronic Other nervous system disorders (13 sources) Piriformis syndrome; Translations: [Lesion of sciatic nerve, unspecified lower limb] 07-27-2022 Chronic Other nervous system disorders (16 sources) Ulnar neuropathy; Translations: [Lesion of ulnar nerve, right upper limb] 02-15-2023 Chronic Other nervous system disorders (13 sources) Skin sensation disturbance; Translations: [Anesthesia of skin] 01-04-2020 Episodic Other nervous system disorders (20 sources) Postoperative pain ; Translations: [Other acute postprocedural pain] Onset: 3 11-17-2022 Episodic Other nervous system disorders (4 sources) Numbness of saddle area; Translations: [Anesthesia of skin] 01-04-2020 Episodic Other non-traumatic joint disorders (4 sources) Pain in wrist; Translations: [Pain in left wrist] 05-20-2024 Episodic Other non-traumatic joint disorders (4 sources) Pain in elbow; Translations: [Pain in left elbow] 05-20-2024 Episodic Other non-traumatic joint disorders (1 source) Pain in left wrist; Translations: [Pain in left wrist] Onset: 5 Episodic Other upper respiratory disease (17 sources) Acute bronchospasm; Translations: [Acute bronchospasm] 02-04-2022 Episodic Other upper respiratory infections (20 sources) Bacterial upper respiratory infection; Translations: [Acute upper respiratory infection, unspecified] 02-04-2022 Episodic Paralysis (17 sources) Cauda equina syndrome; Translations: [Cauda equina syndrome] 11-15-2018 Chronic Pleurisy; pneumothorax; pulmonary collapse (17 sources) Pleurisy; Translations: [Pleurisy] 07-29-2021 Episodic Pneumonia (except that caused by tuberculosis or sexually transmitted disease) (15 sources) Right lower zone pneumonia; Translations: [Pneumonia, unspecified organism] Onset: 5 09-23-2022 Episodic Residual codes; unclassified (20 sources) Finding of gastrointestinal device; Translations: [Presence of other specified functional implants] Onset: 0 06-07-2022 Chronic Residual codes; unclassified (20 sources) Obstructive sleep apnea syndrome; Translations: [Obstructive sleep apnea (adult) (pediatric)] Onset: 3 11-03-2022 Chronic Residual codes; unclassified (10 sources) H/O Spinal surgery; Translations: [Other specified postprocedural states] Episodic Respiratory failure; insufficiency; arrest (adult) (17 sources) Acute respiratory failure; Translations: [Acute respiratory failure with hypoxia] 07-29-2021 Episodic Skull and face fractures (17 sources) Fractured nasal bones; Translations: [Fracture of [...] of thorax, initial encounter] 04-01-2020 Episodic Unclassified (17 sources) 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 02-02-2019 Unclassified (17 sources) gastric pacemaker 02-02-2019 Unclassified (1 source) Back structure, excluding neck (body structure) 02-05-2014 Unclassified (4 sources) for orthopedics Unclassified (1 source) Low back pain, unspecified; Translations: [Low back pain, unspecified] Onset: 02-14-202 5 Viral infection (20 sources) COVID-19; Translations: [...] neoplasm of kidney] Onset: 02-21-2010 10-05-2016 Episodic Cancer of uterus (20 sources) Malignant neoplasm of uterus; Translations: [Malignant neoplasm of uterus, part unspecified] Onset: 07-07-2022 Resolved: 10-30-2022 10-30-2022 Chronic Cancer; other and unspecified primary (20 sources) [...] [Weakness] Onset: 11-15-2018 Resolved: 10-30-2022 10-30-2022 Episodic Miscellaneous mental health disorders (20 sources) Psychologic conversion disorder; Translations: [Dissociative and conversion disorder, unspecified] Onset: 10-11-2015 Resolved: 07-27-2023 10-17-2015 Chronic Other connective tissue disease (20 sources) Weakness of left leg; Translations: [Other symptoms and signs involving the musculoskeletal system] Onset: 11-16-2018 07-07-2022 Episodic Other connective tissue disease (16 sources) Other symptoms and signs involving the [...] Test Name Value Interpretation Reference Range Facility 36on 04-17-2025 36 Triage message revie wed with clinical staff. Normal [facility] Absolute lymphocyte countOrd ered By: Karla Elizondo on 04-17-2025 Lymphocytes Auto (Unsp spec) [#/Vol] 1.94 10*3/uL 0.83-4.51 [facility] Absolute neutrophil countOrd ered By: Karla Elizondo on 04-17-2025 Neutrophils (Bld) [#/Vol] 3.5 10*3/uL 2.0-7.7 [facility] Anion gap in Serum or Plasma Ordered By: Karla Elizondo on 04-17-2025 Anion gap [Moles/Vol] 13 mmol/L 5-15 [facility] Automated lymphocyte count a s percentage of total leukocytesOrdered By: Karla Elizondo on 04-17-2025 Lymphocytes/100 WBC Auto (Unsp spec) 32.7 % 19-41 [facility] BUN/creatinine ratioOrdered By: Karla Elizondo on 04-17-2025 Urea nitrogen/Creatinine [Mass ratio] 20.0 mg/mg 10-20 [facility] Basic Metabolic Profile (BMP )on 04-17-2025 BUN/CRE 20.0 RATIO Normal - [facility] Comment on above: Performed By: #### L 100.0100, L500.2500 ####[facility] [address] [place], [address] Calcium [Mass/Vol] 8.6 mg/dL Normal 7.6-11.0 [facility] Comment on above: Performed By: #### L 100.0100, L500.2500 ####[facility] [address] [place], [address] Chloride [Moles/Vol] 109 mmol/L High 98-108 [facility] Comment on above: Performed By: #### L 100.0100, L500.2500 ####[facility] [address] [place], [address] CO2 [Moles/Vol] 20.2 mmol/L Low 21.0-32.0 [facility] Comment on above: Performed By: #### L 100.0100, L500.2500 ####[facility] [address] [place], [address] Creatinine [Mass/Vol] 0.62 mg/dL Low 0.70-1.20 [facility] Comment on above: Performed By: #### L 100.0100, L500.2500 ####[facility] [address] [place], [address] ECRCL 115.87 ml/min Normal 50-250 [facility] Comment on above: Performed By: #### L 100.0100, L500.2500 ####[facility] [address] [place], [address] GAP 13 Normal 5-15 [facility] Comment on above: Performed By: #### L 100.0100, L500.2500 ####[facility] [address] [place], [address] GFR/1.73 sq M.predicted among non-blacks MDRD (S/P/Bld) [Vol rate/Area] 104 mL/min/{1.73_m2} Normal >60 [facility] Comment on above: Result Comment: mL/m in/1.73m2 CKD-EPI Creatinine Equation (2020) Performed By: #### L 100.0100, L500.2500 ####[facility] [address] [place], [address] Glucose [Mass/Vol] 130 mg/dL High 70-99 [facility] Comment on above: Performed By: #### L 100.0100, L500.2500 ####[facility] [address] [place], [address] Potassium [Moles/Vol] 3.3 mmol/L Normal 3.3-5.1 [facility] Comment on above: Performed By: #### L 100.0100, L500.2500 ####[facility] [address] [place], [address] Sodium [Moles/Vol] 142 mmol/L Normal 133-145 [facility] Comment on above: Performed By: #### L 100.0100, L500.2500 ####[facility] [address] [place], [address] Urea nitrogen [Mass/Vol] 12 mg/dL Normal 4-19 [facility] Comment on above: Performed By: #### L 100.0100, L500.2500 ####[facility] [address] [place], [address] Basophil percentageOrdered B y: Karla Elizondo on 04-17-2025 Basophils/100 WBC (Bld) 0.5 % 0-1 [facility] CBC W/Diff, Automatedon 03-25 Absolute Lymph 1.94 X10 3/uL Normal 0.83-4.51 [facility] Comment on above: Performed By: #### L 100.0100, L500.2500 ####[facility] [address] [place], [address] Absolute Neut 3.5 X10 3/uL Normal 2.0-7.7 [facility] Comment on above: Performed By: #### L 100.0100, L500.2500 ####[facility] [address] [place], [address] Basophils/100 WBC (Bld) 0.5 % Normal 0-1 [facility] Comment on above: Performed By: #### L 100.0100, L500.2500 ####[facility] [address] [place], [address] Eosinophils/100 WBC (Bld) 1.2 % Normal 0-5 [facility] Comment on above: Performed By: #### L 100.0100, L500.2500 ####[facility] [address] [place], [address] Erythrocyte distribution width (RBC) [Ratio] 12.8 % Normal 11.6-14.6 [facility] Comment on above: Performed By: #### L 100.0100, L500.2500 ####[facility] [address] [place], [address] Hematocrit (Bld) [Volume fraction] 42.7 % Normal 37-47 [facility] Comment on above: Performed By: #### L 100.0100, L500.2500 ####[facility] [address] [place], [address] Hemoglobin (Bld) [Mass/Vol] 13.8 g/dL Normal 12.0-15.0 [facility] Comment on above: Performed By: #### L 100.0100, L500.2500 ####[facility] [address] [place], [address] IG% 0.500 Normal 0.0-0.9 [facility] Comment on above: Result Comment: IG% - Immature Granulocytes (promyelocytes, myelocytes and metamyelocytes) > 1% indicates that a LEFT SHIFT is Present. Performed By: #### L 100.0100, L500.2500 ####[facility] [address] [place], [address] Lymphocytes/100 WBC (Bld) 32.7 % Normal 19-41 [facility] Comment on above: Performed By: #### L 100.0100, L500.2500 ####[facility] [address] [place], [address] MCH (RBC) [Entitic mass] 31.3 pg Normal 27.0-32.0 [facility] Comment on above: Performed By: #### L 100.0100, L500.2500 ####[facility] [address] [place], [address] MCHC (RBC) [Mass/Vol] 32.3 g/dL Normal 32-36 [facility] Comment on above: Performed By: #### L 100.0100, L500.2500 ####[facility] [address] [place], [address] MCV (RBC) [Entitic vol] 96.8 fL Normal 81-99 [facility] Comment on above: Performed By: #### L 100.0100, L500.2500 ####[facility] [address] [place], [address] Monocytes/100 WBC (Bld) 6.9 % Normal 0-10 [facility] Comment on above: Performed By: #### L 100.0100, L500.2500 ####[facility] [address] [place], [address] Neutrophils/100 WBC (Bld) 58.2 % Normal 47-70 [facility] Comment on above: Performed By: #### L 100.0100, L500.2500 ####[facility] [address] [place], [address] Nucleated RBC (Bld) [#/Vol] 0 10*3/uL Normal 0-5 [facility] Comment on above: Performed By: #### L 100.0100, L500.2500 ####[facility] [address] [place], [address] Platelet mean volume (Bld) [Entitic vol] 9.6 fL Normal 6.2-12.0 [facility] Comment on above: Performed By: #### L 100.0100, L500.2500 ####[facility] [address] [place], [address] Platelets (Bld) [#/Vol] 287 10*3/uL Normal 150-450 [facility] Comment on above: Performed By: #### L 100.0100, L500.2500 ####[facility] [address] [place], [address] RBC (Bld) [#/Vol] 4.41 10*6/uL Normal 4.2-5.4 [facility] Comment on above: Performed By: #### L 100.0100, L500.2500 ####[facility] [address] [place], [address] RDW SD 45.3 fl High 35.1-43.9 [facility] Comment on above: Performed By: #### L 100.0100, L500.2500 ####[facility] [address] [place], [address] WBC (Bld) [#/Vol] 5.9 10*3/uL Normal 4.4-11.0 [facility] Comment on above: Performed By: #### L 100.0100, L500.2500 ####[facility] [address] [place], [address] Carbon dioxide, total [Moles /volume] in Central venous bloodOrdered By: Karla Mikhail on 04-17-2025 CO2 [Moles/Vol] 20.2 mmol/L Low 21.0-32.0 [facility] Chloride assayOrdered By: Na na Rohitdestiny on 04-17-2025 Chloride [Moles/Vol] 109 mmol/L High 98-108 [facility] Electrocardiogram reportOrde red By: Rodolfo Camp on 04-17-2025 EKG study [facility] Cardiovascular Services [address] [place] [address] 12 Lead EKG 04/15/25 1854 MR#: [id number] Acct: [id number] Name: ORTIZ MASON Rep #:[id number] : 1970 55 From: Rodolfo Camp MD Attending Dr: Dr. Alfred Sotomayor DO Status: ADM MARTINA Ordering Dr: Narciso Baron DO Date: 04/15/25 Location: [facility] Sex: F C Admitted: 04/15/25 Test Reason : SYNCOPAL Blood Pressure : */* mmHG Vent. Rate : 102 BPM Atrial Rate : 102 BPM P-R Int : 154 ms QRS Dur : 92 ms QT Int : 374 ms P-R-T Axes : 66 69 69 degrees QTcB Int : 487 ms Sinus tachycardia Possible Left atrial enlargement RSR' or QR pattern in V1 suggests right ventricular conduction delay QTcB >= 480 msec Abnormal ECG Confirmed by RODOLFO CAMP MD ([id number]), department editor MAYRA SMALL ([id number]) on 04/17/2025 1:04:10 PM Referred By: Confirmed By: RODOLFO CAMP MD 04/17/25 1304 Date _ Rodolfo Camp MD CC: Dr. Alfred Sotomayor DO; Dr. Amandeep Loredo DO; Dr. Narciso Baron DO ~ Signed [facility] Other Phone: EKG study [facility] Cardiovascular Services [address] [place] [address] 12 Lead EKG 04/15/25 1656 MR#: [id number] Acct: [id number] Name: ORTIZ MASON Rep #:[id number] : 1970 55 From: Rodolfo Camp MD Attending Dr: Dr. Alfred Sotomayor DO Status: ADM MARTINA Ordering Dr: Jordin Chisholm MD Date: Location: [facility] Sex: F C Admitted: 04/15/25 Test Reason : Blood Pressure : */* mmHG Vent. Rate : 91 BPM Atrial Rate : 91 BPM P-R Int : 146 ms QRS Dur : 90 ms QT Int : 376 ms P-R-T Axes : 53 43 59 degrees QTcB Int : 462 ms Normal sinus rhythm RSR' or QR pattern in V1 suggests right ventricular conduction delay Borderline ECG Confirmed by RODOLFO CAMP MD ([id number]), department editor MAYRA SMALL ([id number]) on 04/17/2025 1:03:57 PM Referred By: Confirmed By: RODOLFO CAMP MD 04/17/25 1303 Date _ Rodolfo Camp MD CC: Dr. Jordin Chisholm MD; Dr. Alfred Sotomayor DO; Dr. Amandeep Loredo DO ~ Signed [facility] Other Phone: Eosinophil percentageOrdered By: Karla Elizondo on 04-17-2025 Eosinophils/100 WBC (Bld) 1.2 % 0-5 [facility] Erythrocyte distribution wid th ratioOrdered By: Karla Elizondo on 04-17-2025 Erythrocyte distribution width (RBC) [Ratio] 12.8 % 11.6-14.6 [facility] Erythrocyte distribution wid th standard deviationOrdered By: Karla Elizondo on 04-17-2025 Erythrocyte distribution width (RBC) [Ratio] 45.3 fl High 35.1-43.9 [facility] Glomerular filtration rate ( GFR) estimation/1.73 sq m using serum, plasma, or whole bOrdered By: Karla Elizondo on 04-17-2025 GFR/1.73 sq M.predicted among non-blacks MDRD (S/P/Bld) [Vol rate/Area] 104 mL/min/{1.73_m2} >60 [facility] Comment on above: mL/min/1.73m2 CKD-EP I Creatinine Equation (2020) Hematocrit Auto (Bld) [Volum e fraction]Ordered By: Karla Elizondo on 04-17-2025 Hematocrit (Bld) [Volume fraction] 42.7 % 37-47 [facility] Hemoglobin measurementOrdere d By: Karla Elizondo on 04-17-2025 Hemoglobin (Bld) [Mass/Vol] 13.8 g/dL 12.0-15.0 [facility] Immature granulocytes/100 WB C Auto (Bld)Ordered By: Karla Elizondo on 04-17-2025 Immature granulocytes/100 WBC (Bld) 0.500 % 0.0-0.9 [facility] Comment on above: IG% - Immature Granu locytes (promyelocytes, myelocytes and metamyelocytes) > 1% indicates that a LEFT SHIFT is Present. MCV (mean corpuscular volume ) determinationOrdered By: Karla Elizondo on 04-17-2025 MCV (RBC) [Entitic vol] 96.8 fL 81-99 [facility] Mean corpuscular hemoglobin (MCH) determinationOrdered By: Karla Elizondo 04-17-2025 MCH (RBC) [Entitic mass] 31.3 pg 27.0-32.0 [facility] Mean corpuscular hemoglobin concentration (MCHC) determinationOrdered By: Karla Elizondo 04-17-2025 MCHC (RBC) [Mass/Vol] 32.3 g/dL 32-36 [facility] Mean platelet volume determi nationOrdered By: Karla Elizondo on 04-17-2025 Platelet mean volume (Bld) [Entitic vol] 9.6 fL 6.2-12.0 [facility] Monocyte percentageOrdered B y: Karla Elizondo on 04-17-2025 Monocytes/100 WBC (Bld) 6.9 % 0-10 [facility] Neutrophil percentageOrdered By: Karla Elizondo on 04-17-2025 Neutrophils/100 WBC (Bld) 58.2 % 47-70 [facility] Nucleated red blood cell per centageOrdered By: Karla Elizondo on 04-17-2025 Nucleated RBC/100 WBC (Bld) [Ratio] 0 % 0-5 [facility] Platelet countOrdered By: Bina Elizondo on 04-17-2025 Platelets (Bld) [#/Vol] 287 10*3/uL 150-450 [facility] Potassium measurement (mass/ volume)Ordered By: Karla Elizondo on 04-17-2025 Potassium (Unsp spec) [Mass/Vol] 3.3 mmol/L 3.3-5.1 [facility] RBC Auto (Bld) [#/Vol]Ordere d By: Karla Elizondo on 04-17-2025 RBC (Bld) [#/Vol] 4.41 10*6/uL 4.2-5.4 [facility] Serum creatinine measurement (mass/volume)Ordered By: Karla Elizondo on 04-17-2025 Creatinine [Mass/Vol] 0.62 mg/dL Low 0.70-1.20 [facility] Serum glucose measurement (m ass/volume)Ordered By: Karla Elizondo on 04-17-2025 Glucose [Mass/Vol] 130 mg/dL High 70-99 [facility] Serum or plasma calcium tania urement (mass/volume)Ordered By: Karla Elizondo on 04-17-2025 Calcium [Mass/Vol] 8.6 mg/dL 7.6-11.0 [facility] Serum or plasma urea nitroge n measurement (mass/volume)Ordered By: Karla Eilzondo on 04-17-2025 Urea nitrogen [Mass/Vol] 12 mg/dL 4-19 [facility] Sodium levelOrdered By: Karla Elizondo on 04-17-2025 Sodium [Moles/Vol] 142 mmol/L 133-145 [facility] White blood cell (WBC) count Ordered By: Karla Elizondo on 04-17-2025 WBC (Bld) [#/Vol] 5.9 10*3/uL 4.4-11.0 [facility] 12 Lead EKGon 04-16-2025 12 Lead EKG [facility] Cardiovascular Services [address] [place] [address] 12 Lead EKG 04/16/25 0947 MR#: [id number] Acct: [id number] Name: ORTIZ MASON Rep #: [id number] : 1970 55 From: Rodolfo Camp MD Attending Dr: Dr. Alfred Sotomayor DO Status: DIS MARTINA Ordering Dr: Karla Elizondo MD Date: 04/16/25 Location: [facility] Sex: F C Admitted: 04/15/25 Test Reason : CP Blood Pressure : */* mmHG Vent. Rate : 78 BPM Atrial Rate : 78 BPM P-R Int : 162 ms QRS Dur : 92 ms QT Int : 392 ms P-R-T Axes : 70 60 69 degrees QTcB Int : 446 ms Normal sinus rhythm Normal ECG When compared with ECG of 15-Apr-2025 18:54, MANUAL COMPARISON REQUIRED DATA IS UNCONFIRMED Confirmed by ZOË RICHARDSON, RODOLFO ([id number]), department editor MARQUIS AVILA ([id number]) on 04/18/2025 6:09:27 AM Referred By: Confirmed By: RODOLFO CAMP MD 04/18/25 0609 Date Rodolfo Camp MD CC: Dr. Alfred Sotomayor DO; Dr. Amandeep Loredo DO; Dr. Karla Elizondo MD Signed Normal [facility] Basic Metabolic Profile (BMP )on 04-16-2025 BUN/CRE 14.7 RATIO Normal 10-20 [facility] Comment on above: Performed By: #### L 100.0500, L500.2500 #### [facility] Laboratory [address] [place], [address] Calcium [Mass/Vol] 9.1 mg/dL Normal 7.6-11.0 [facility] Comment on above: Performed By: #### L 100.0500, L500.2500 #### [facility] [address] [place], [address] Chloride [Moles/Vol] 107 mmol/L Normal 98-108 [facility] Comment on above: Performed By: #### L 100.0500, L500.2500 #### [facility] [address] [place], [address] CO2 [Moles/Vol] 21.0 mmol/L Normal 21.0-32.0 [facility] Comment on above: Performed By: #### L 100.0500, L500.2500 #### [facility] [address] [place], [address] Creatinine [Mass/Vol] 0.58 mg/dL Low 0.70-1.20 [facility] Comment on above: Performed By: #### L 100.0500, L500.2500 #### [facility] [address] [place], [address] ECRCL 123.86 ml/min Normal 50-250 [facility] Comment on above: Performed By: #### L 100.0500, L500.2500 #### [facility] [facility] [address] [place], [address] GAP 12 Normal 5-15 [facility] Comment on above: Performed By: #### L 100.0500, L500.2500 #### [facility] [address] [place], [address] GFR/1.73 sq M.predicted among non-blacks MDRD (S/P/Bld) [Vol rate/Area] 106 mL/min/{1.73_m2} Normal >60 [facility] Comment on above: Result Comment: mL/m in/1.73m2 CKD-EPI Creatinine Equation (2020) Performed By: #### L 100.0500, L500.2500 #### [facility] [address] [place], [address] Glucose [Mass/Vol] 95 mg/dL Normal 70-99 [facility] Comment on above: Performed By: #### L 100.0500, L500.2500 #### [facility] [address] [place], [address] Potassium [Moles/Vol] 3.8 mmol/L Normal 3.3-5.1 [facility] Comment on above: Performed By: #### L 100.0500, L500.2500 #### [facility] [address] [place], [address] Sodium [Moles/Vol] 141 mmol/L Normal 133-145 [facility] Comment on above: Performed By: #### L 100.0500, L500.2500 #### [facility] [address] [place], [address] Urea nitrogen [Mass/Vol] 8 mg/dL Normal 4-19 [facility] Comment on above: Performed By: #### L 100.0500, L500.2500 #### [facility] [address] [place], [address] CBC-Complete Blood Cnt No Di ffon 04-16-2025 Erythrocyte distribution width (RBC) [Ratio] 12.7 % Normal 11.6-14.6 [facility] Comment on above: Performed By: #### L 100.0500, L500.2500 #### [facility] [address] [place], [address] Hematocrit (Bld) [Volume fraction] 45.2 % Normal 37-47 [facility] Comment on above: Performed By: #### L 100.0500, L500.2500 #### [facility] [address] [place], [address] Hemoglobin (Bld) [Mass/Vol] 14.9 g/dL Normal 12.0-15.0 [facility] Comment on above: Performed By: #### L 100.0500, L500.2500 #### [facility] [address] [place], [address] MCH (RBC) [Entitic mass] 30.8 pg Normal 27.0-32.0 [facility] Comment on above: Performed By: #### L 100.0500, L500.2500 #### [facility] [address] [place], [address] MCHC (RBC) [Mass/Vol] 33.0 g/dL Normal 32-36 [facility] Comment on above: Performed By: #### L 100.0500, L500.2500 #### [facility] [address] [place], [address] MCV (RBC) [Entitic vol] 93.4 fL Normal 81-99 [facility] Comment on above: Performed By: #### L 100.0500, L500.2500 #### [facility] [address] [place], [address] Platelet mean volume (Bld) [Entitic vol] 9.6 fL Normal 6.2-12.0 [facility] Comment on above: Performed By: #### L 100.0500, L500.2500 #### [facility] [address] [place], [address] Platelets (Bld) [#/Vol] 315 10*3/uL Normal 150-450 [facility] Comment on above: Performed By: #### L 100.0500, L500.2500 #### [facility] [address] [place], [address] RBC (Bld) [#/Vol] 4.84 10*6/uL Normal 4.2-5.4 [facility] Comment on above: Performed By: #### L 100.0500, L500.2500 #### [facility] [address] [place], [address] RDW SD 43.3 fl Normal 35.1-43.9 [facility] Comment on above: Performed By: #### L 100.0500, L500.2500 #### [facility] [address] [place], [address] WBC (Bld) [#/Vol] 6.3 10*3/uL Normal 4.4-11.0 [facility] Comment on above: Performed By: #### L 100.0500, L500.2500 #### [facility] [address] [place], [address] L501.4021on 04-16-2025 Trop T High Sen < 6 Normal <=14 [facility] Comment on above: Performed By: #### L 501.4021 #### [facility] [address] [place], [address] Troponin T HS 2 HRon 2 025 Trop T High Sen < 6 Normal <=14 [facility] Comment on above: Performed By: #### L 100.0100 #### [facility] [address] [place], [address] Troponin T HS 4 HRon 04-16-2 025 Trop T High Sen < 6 Normal <=14 [facility] Comment on above: Performed By: #### L 499.0043 ####[facility] [address] [place], [address] Troponin T.cardiac [Mass/vol ume] in Serum or Plasma by High sensitivity methodOrdered By: Karla Elizondo on 04-16-2025 Troponin T.cardiac High sensitivity method [Mass/Vol] < 6 ng/L <14 [facility] Troponin T.cardiac High sensitivity method [Mass/Vol] < 6 ng/L <14 [facility] Troponin T.cardiac High sensitivity method [Mass/Vol] < 6 ng/L <14 [facility] Urinalysis, Completeon 04-16 BACTERIA Normal None Seen [facility] Comment on above: Order Comment: ISIS CTOR TO SPECIFY Result Comment: FCO ENT DISCHARGED-NO SPECIMEN REC'D Performed By: #### L 400.0001 ####[facility] [address] [place], [address] BILIRUBIN URINE Normal Negative [facility] Comment on above: Order Comment: COLLE CTOR TO SPECIFY Result Comment: FCO ENT DISCHARGED-NO SPECIMEN REC'D Performed By: #### L 400.0001 ####[facility] [address] [place], [address] Clarity (U) Normal Clear [facility] Comment on above: Order Comment: ISIS CTOR TO SPECIFY Result Comment: FCO ENT DISCHARGED-NO SPECIMEN REC'D Performed By: #### L 400.0001 ####[facility] [address] [place], [address] Color (U) Normal Yellow [facility] Comment on above: Order Comment: COLLE CTOR TO SPECIFY Result Comment: FCO ENT DISCHARGED-NO SPECIMEN REC'D Performed By: #### L 400.0001 ####[facility] [address] [place], [address] EPI,SQUAMOUS Normal 5-10 [facility] Comment on above: Order Comment: ISIS CTOR TO SPECIFY Result Comment: FCO ENT DISCHARGED-NO SPECIMEN REC'D Performed By: #### L 400.0001 ####[facility] [address] [place], [address] GLUCOSE, UR Normal Normal [facility] Comment on above: Order Comment: ISIS CTOR TO SPECIFY Result Comment: FCO ENT DISCHARGED-NO SPECIMEN REC'D Performed By: #### L 400.0001 ####[facility] [address] [place], [address] KETONE UR Normal Negative [facility] Comment on above: Order Comment: ISIS CTOR TO SPECIFY Result Comment: FCO ENT DISCHARGED-NO SPECIMEN REC'D Performed By: #### L 400.0001 ####[facility] [address] [place], [address] LEUK ESTERASE Normal Negative [facility] Comment on above: Order Comment: COLLE CTOR TO SPECIFY Result Comment: FCO ENT DISCHARGED-NO SPECIMEN REC'D Performed By: #### L 400.0001 ####[facility] [address] [place], [address] Mucus Ql (Urine sed) Normal [facility] Comment on above: Order Comment: COLLE CTOR TO SPECIFY Result Comment: FCO ENT DISCHARGED-NO SPECIMEN REC'D Performed By: #### L 400.0001 ####[facility] [address] [place], [address] Nitrite Ql (U) Normal Negative [facility] Comment on above: Order Comment: ISIS CTOR TO SPECIFY Result Comment: FCO ENT DISCHARGED-NO SPECIMEN REC'D Performed By: #### L 400.0001 ####[facility] [address] [place], [address] OCCULT BLOOD-UR Normal Negative [facility] Comment on above: Order Comment: ISIS CTOR TO SPECIFY Result Comment: FCO ENT DISCHARGED-NO SPECIMEN REC'D Performed By: #### L 400.0001 ####[facility] [address] [place], [address] pH UR Normal 5.0 - 8.0 [facility] Comment on above: Order Comment: ISIS CTOR TO SPECIFY Result Comment: FCO ENT DISCHARGED-NO SPECIMEN REC'D Performed By: #### L 400.0001 ####[facility] [address] [place], [address] PROT DIPSTX Normal Negative [facility] Comment on above: Order Comment: ISIS CTOR TO SPECIFY Result Comment: FCO ENT DISCHARGED-NO SPECIMEN REC'D Performed By: #### L 400.0001 ####[facility] [address] [place], [address] RBC Normal 0-5 [facility] Comment on above: Order Comment: COLLE CTOR TO SPECIFY Result Comment: FCO ENT DISCHARGED-NO SPECIMEN REC'D Performed By: #### L 400.0001 ####[facility] [address] [place], [address] SP.GR. DIPSTX Normal 1.002-1.030 [facility] Comment on above: Order Comment: COLLE CTOR TO SPECIFY Result Comment: FCO ENT DISCHARGED-NO SPECIMEN REC'D Performed By: #### L 400.0001 ####[facility] [address] [place], [address] UR Preservative Normal [facility] Comment on above: Order Comment: COLLE CTOR TO SPECIFY Result Comment: FCO ENT DISCHARGED-NO SPECIMEN REC'D Performed By: #### L 400.0001 ####[facility] [address] [place], [address] UROBILI Normal Normal [facility] Comment on above: Order Comment: COLLE CTOR TO SPECIFY Result Comment: FCO ENT DISCHARGED-NO SPECIMEN REC'D Performed By: #### L 400.0001 ####[facility] [address] [place], [address] WBC Normal 0-5 [facility] Comment on above: Order Comment: COLLE CTOR TO SPECIFY Result Comment: FCO ENT DISCHARGED-NO SPECIMEN REC'D Performed By: #### L 400.0001 ####[facility] [address] [place], [address] 12 Lead EKGon 04-15-2025 12 Lead EKG [facility] Cardiovascular Services [address] [place] [address] 12 Lead EKG 04/15/25 1854 MR#: [id number] Acct: [id number] Name: ORTIZ MASON Rep #: [id number] : 1970 55 From: Rodolfo Camp MD Attending Dr: Dr. Alfred Sotomayor, DO Status: ADM MARTINA Ordering Dr: Narciso Baron DO Date: 04/15/25 Location: [facility] Sex: F C Admitted: 04/15/25 Test Reason : SYNCOPAL Blood Pressure : */* mmHG Vent. Rate : 102 BPM Atrial Rate : 102 BPM P-R Int : 154 ms QRS Dur : 92 ms QT Int : 374 ms P-R-T Axes : 66 69 69 degrees QTcB Int : 487 ms Sinus tachycardia Possible Left atrial enlargement RSR' or QR pattern in V1 suggests right ventricular conduction delay QTcB >= 480 msec Abnormal ECG Confirmed by RODOLFO CAMP MD ([id number]), department editor MAYRA SMALL ([id number]) on 04/17/2025 1:04:10 PM Referred By: Confirmed By: RODOLFO CAMP MD 04/17/25 1304 Date Rodolfo Camp MD CC: Dr. Alfred Sotomayor DO; Dr. Amandeep Loredo DO; Dr. Narciso Baron DO Signed Normal [facility] 12 Lead EKG [facility] Cardi[facility] Services [address] [place] [address] 12 Lead EKG 04/15/25 1656 MR#: [id number] Acct: [id number] Name: ORTIZ MASON Rep #: [id number] : 1970 55 From: Rodolfo Camp MD Attending Dr: Dr. Alfred Sotomayor DO Status: ADM MARTINA Ordering Dr: Jordin Chisholm MD Date: 04/15/25 Location: [facility] Sex: F C Admitted: 04/15/25 Test Reason : Blood Pressure : */* mmHG Vent. Rate : 91 BPM Atrial Rate : 91 BPM P-R Int : 146 ms QRS Dur : 90 ms QT Int : 376 ms P-R-T Axes : 53 43 59 degrees QTcB Int : 462 ms Normal sinus rhythm RSR' or QR pattern in V1 suggests right ventricular conduction delay Borderline ECG Confirmed by RODOLFO CAMP MD ([id number]), department editor MAYRA SMALL ([id number]) on 04/17/2025 1:03:57 PM Referred By: Confirmed By: RODOLFO CAMP MD 04/17/25 1303 Date Rodolfo Camp MD CC: Dr. Jordin Chisholm MD; Dr. Alfred Sotomayor DO; Dr. Amandeep Loredo DO Signed Normal [facility] Basic Metabolic Profile (BMP )on 04-15-2025 BUN/CRE 11.4 RATIO Normal 10-20 [facility] Comment on above: Performed By: #### L 100.0100 #### [facility] [address] [place], [address] Calcium [Mass/Vol] 9.4 mg/dL Normal 7.6-11.0 [facility] Comment on above: Performed By: #### L 100.0100 #### [facility] [address] [place], [address] Chloride [Moles/Vol] 106 mmol/L Normal 98-108 [facility] Comment on above: Performed By: #### L 100.0100 #### [facility] [address] [place], [address] CO2 [Moles/Vol] 21.9 mmol/L Normal 21.0-32.0 [facility] Comment on above: Performed By: #### L 100.0100 #### [facility] [address] [place], [address] Creatinine [Mass/Vol] 0.55 mg/dL Low 0.70-1.20 [facility] Comment on above: Performed By: #### L 100.0100 #### [facility] [address] [place], [address] ECRCL 129.45 ml/min Normal 50-250 [facility] Comment on above: Performed By: #### L 100.0100 #### [facility] [address] [place], [address] GAP 14 Normal 5-15 [facility] Comment on above: Performed By: #### L 100.0100 #### [facility] [address] [place], [address] GFR/1.73 sq M.predicted among non-blacks MDRD (S/P/Bld) [Vol rate/Area] 108 mL/min/{1.73_m2} Normal >60 [facility] Comment on above: Result Comment: mL/m in/1.73m2 CKD-EPI Creatinine Equation (2020) Performed By: #### L 100.0100 #### [facility] [address] [place], [address] Glucose [Mass/Vol] 105 mg/dL High 70-99 [facility] Comment on above: Performed By: #### L 100.0100 #### [facility] [address] [place], [address] Potassium [Moles/Vol] 3.5 mmol/L Normal 3.3-5.1 [facility] Comment on above: Performed By: #### L 100.0100 #### [facility] [address] [place], [address] Sodium [Moles/Vol] 142 mmol/L Normal 133-145 [facility] Comment on above: Performed By: #### L 100.0100 #### [facility] [address] [place], [address] Urea nitrogen [Mass/Vol] 6 mg/dL Normal 4-19 [facility] Comment on above: Performed By: #### L 100.0100 #### [facility] [address] [place], [address] Bedside Glucoseon 04-15-2025 FINGERSTICK GLU 103 mg/dL Normal 74-106 [facility] Comment on above: Result Comment: DIAZ GEMENT OF PATIENT CARE PER NURSING PROTOCOL Performed By: #### L 501.080 ####[facility] [address] [place], [address] CBC W/Diff, Automatedon 08-2 -2024 Absolute Lymph 1.56 X10 3/uL Normal 0.83-4.51 [facility] Comment on above: Performed By: #### L 100.0100 #### [facility] [address] [place], [address] Absolute Neut 5.0 X10 3/uL Normal 2.0-7.7 [facility] Comment on above: Performed By: #### L 100.0100 #### [facility] [address] [place], [address] Basophils/100 WBC (Bld) 0.6 % Normal 0-1 [facility] Comment on above: Performed By: #### L 100.0100 #### [facility] [address] [place], [address] Eosinophils/100 WBC (Bld) 0.8 % Normal 0-5 [facility] Comment on above: Performed By: #### L 100.0100 #### [facility] [address] [place], [address] Erythrocyte distribution width (RBC) [Ratio] 12.7 % Normal 11.6-14.6 [facility] Comment on above: Performed By: #### L 100.0100 #### [facility] [address] [place], [address] Hematocrit (Bld) [Volume fraction] 45.9 % Normal 37-47 [facility] Comment on above: Performed By: #### L 100.0100 #### [facility] [address] [place], [address] Hemoglobin (Bld) [Mass/Vol] 15.3 g/dL High 12.0-15.0 [facility] Comment on above: Performed By: #### L 100.0100 #### [facility] [address] [place], [address] IG% 0.300 Normal 0.0-0.9 [facility] Comment on above: Result Comment: IG% - Immature Granulocytes (promyelocytes, myelocytes and metamyelocytes) > 1% indicates that a LEFT SHIFT is Present. Performed By: #### L 100.0100 #### [facility] [address] [place], [address] Lymphocytes/100 WBC (Bld) 21.7 % Normal 19-41 [facility] Comment on above: Performed By: #### L 100.0100 #### [facility] [address] [place], [address] MCH (RBC) [Entitic mass] 31.2 pg Normal 27.0-32.0 [facility] Comment on above: Performed By: #### L 100.0100 #### [facility] [address] [place], [address] MCHC (RBC) [Mass/Vol] 33.3 g/dL Normal 32-36 [facility] Comment on above: Performed By: #### L 100.0100 #### [facility] [address] [place], [address] MCV (RBC) [Entitic vol] 93.7 fL Normal 81-99 [facility] Comment on above: Performed By: #### L 100.0100 #### [facility] [address] [place], [address] Monocytes/100 WBC (Bld) 6.4 % Normal 0-10 [facility] Comment on above: Performed By: #### L 100.0100 #### [facility] [address] [place], [address] Neutrophils/100 WBC (Bld) 70.2 % High 47-70 [facility] Comment on above: Performed By: #### L 100.0100 #### [facility] [address] [place], [address] Nucleated RBC (Bld) [#/Vol] 0 10*3/uL Normal 0-5 [facility] Comment on above: Performed By: #### L 100.0100 #### [facility] [address] [place], [address] Platelet mean volume (Bld) [Entitic vol] 9.6 fL Normal 6.2-12.0 [facility] Comment on above: Performed By: #### L 100.0100 #### [facility] [address] [place], [address] Platelets (Bld) [#/Vol] 327 10*3/uL Normal 150-450 [facility] Comment on above: Performed By: #### L 100.0100 #### [facility] [address] [place], [address] RBC (Bld) [#/Vol] 4.90 10*6/uL Normal 4.2-5.4 [facility] Comment on above: Performed By: #### L 100.0100 #### [facility] [address] [place], [address] RDW SD 43.8 fl Normal 35.1-43.9 [facility] Comment on above: Performed By: #### L 100.0100 #### [facility] [address] [place], [address] WBC (Bld) [#/Vol] 7.2 10*3/uL Normal 4.4-11.0 [facility] Comment on above: Performed By: #### L 100.0100 #### [facility] [address] [place], [address] Emergency Department Summary on 04-15-2025 Emergency Department Summary [facility] Medical Records Department [address] [place] [address] Emergency Department Summary 04/15/25 MR#: [id number] Acct: [id number] Name: ORTIZ MASON Rep #: [id number] : 1970 55 From: Jordin Chisholm MD PCP: Dr. Amandeep Loredo, DO Status:ADM MARTINA Location: [address] History of Present Illness Chief Complaint: Shortness of Breath Narrative Narrative: 55-year-old female presents with increasing dyspnea with recent diagnosis of pneumonia. She states that a few days prior to her being seen in the emergency department yesterday evening, she was havi ng upper respiratory infection type symptoms such as fever and productive cough. She was seen in the emergency department yesterday evening and diagnosed with pneumonia. She was sent home on azithromycin. Since then, she states she developed diarrhea as well as nausea and vomiting. She has vomited at least 10 times without any hematemesis. She developed a loose stool as well. She states she is having increasing chest pressure which she was also having last night. She has a past medical history of seizure disorder and was unable to take her Keppra as she has been vomiting all day. She states she was not sent home with any albuterol. [facility] Medical History NSTEMI (non-ST elevated myocardial infarction) Cardiac arrest COVID-19 Brain aneurysm Chronic pain Rheumatoid arthritis Kidney stones Kidney disease GERD (gastroesophageal reflux disease) Former smoker Sleep apnea Asthma Migraines Seizures Home Medications ???Medication ???Instructions ???Recorded ???Last Taken ???Type ddzasmec-ernv-knkq 8 mg-folic 400 1 tab PO DAILY supplement 9 07/26/21 History mcg-K 50 mcg-lutein 300 mcg tablet levetiracetam 750 mg tablet 1,500 mg PO Q12H seizures 12/04/19 07/26/21 History fluticasone propionate 50 1 spray intranasal DAILY 08/24/22 Unknown History mcg/actuation nasal spray,suspension (Flonase Allergy Relief) cyclobenzaprine 10 mg tablet 10 mg PO TID PRN Muscle Spasm #20 05/11/24 Unknown Rx TABLETS oxycodone-acetaminophen 5 mg-325 1 tab PO Q6H PRN pain 5 days #20 1 10/08/23 Unknown Rx mg tablet (Percocet) tabs gabapentin 400 mg capsule 800 mg PO Q12H 09/04/24 Unknown Hi story levetiracetam 1,000 mg tablet 1,000 mg PO Q12H 09/04/24 Unknown History (Keppra) omeprazole 20 mg capsule,delayed 20 mg PO BID 09/04/24 Unknown Hist ory release tizanidine 2 mg capsule 2 mg PO TID PRN muscle spasticity 10/21/24 Unknown Rx #14 caps metaxalone 800 mg tablet 800 mg PO TID 7 days #21 tabs 02/22 10/18 Unknown Rx oxycodone-acetaminophen 5 mg-325 1 tab PO Q6H PRN pain 4 days #12 0 03/14/25 Unknown Rx mg tablet (Percocet) tabs azithromycin 250 mg tablet 250 mg PO DAILY #4 TABLETS 5 Unknown Rx oxycodone-acetaminophen 5 mg-325 1 tab PO Q4H PRN Pain 04/15/25 Unk nown History mg tablet Allergy/AdvReac Type Severity Reaction Status Date / Time Penicillins Allergy Anaphylaxis Verified 04/15/25 16:21 propoxyphene napsylate (From Allergy Rash Verified 04/15/25 16:21 Darvocet-N 100) adhesive tape (plastic tape) AdvReac Other Verified 04/15/25 16:21 hydrocodone bitartrate (From AdvReac Itching Verified 04/15/25 16:21 Vicodin) Iodinated Contrast Media AdvReac Vomiting Verified 04/15/25 16:21 (contrast dye - iodinated) venom-honey bee (bee venom AdvReac Chest Verified 04/15/25 16:21 (honey bee)) tightness Surgical History History of kidney surgery History of hysterectomy Hx of neck surgery Previous back surgery History of appendectomy History of cholecystectomy Social History household members: none Smoking Status: Current every day smoker tobacco type: cigarettes substance use type: does not use ROS ROS ED ROS Narrative Review of systems positive for cough, productive, subjective fever. Positive nausea and vomiting as well as diarrhea today. At least 10 episodes of vomiting. No hematemesis. Positive chest pressure and dyspnea. Unable to take medications orally. EXAM Physical Exam Narrative Exam Narrative: Afebrile. Vital signs noted. Nontoxic-appearing. Cardiovascular examination reveals a regular rate and rhythm. Positive rhonchi bilateral lung guerra, moving a good amount of air. Abdomen soft and nontender with positive bowel sounds. No guarding or rebound. Neurological examination nonfocal, nonlateralizing. Const Vital Signs: 04/15/25 16:19 04/15/25 16:47 04/15/25 16:47 Temperature 98.4 F Temperature Source Oral Pulse Rate 98 Respiratory Rate 20 H Respiratory Effort Normal Non-Labored Respirato (more content not included)... Normal [facility] deOrdered By: Hany Gooden on 04-15-2025 Glucose [Mass/Vol] 103 mg/dL 74-106 [facility] Comment on above: MANAGEMENT OF PATIEN T CARE PER NURSING PROTOCOL H AND P Exam - Hospital[place] 04-15-2025 H&P Exam - Hospitalist [facility] Medical Records Department [address] [place] [address] H P Exam - Hospitalist 04/15/25 1833 MR#: [id number] Acct: [id number] Name: ORTIZ MASON Rep #: [id number] : 1970 55 From: Hany Gooden DO PCP: Dr. Amandeep Loredo, DO Status:ADM MARTINA Location: [place] [id number] HPI - General General Date of Admission: 04/15/25 Date of Service: 04/15/25 Chief Complaint: Intractable nausea and vomiting HPI Narrative ORTIZ MASON, is a 55 F who presented to [facility] ED on 04/15/2025 with intractable nausea and vomiting. Patient was seen in the ED yesterday for worsening shortness of breath, cough and pleuritic chest pain. She was diagnosed with pneumonia and sent home on p.o. azithromycin. This morning she developed diarrhea as well as nausea and vomiting. Noted she has vomited at least 10 times over the course of today. Has also had continued chest pain/discomfort, and she has been unable to take her p.o. medications so she came in for further evaluation. In the ED she was borderline tachycardic with heart rate in the 90s, was otherwise normotensive and stable on room air at rest. WBC count has improved from yesterday, and CBC and BMP are otherwise benign. Patient was given doses of IV Toradol and Zofran with only mild relief of symptoms. Was also given a breathing treatment. Given her intractable nausea and vomiting and inability to take p.o. medications, hospitalist was contacted for admission. I saw the patient at bedside in the ED. Patient was in mild to moderate distress due to ongoing chest and mid back discomfort. Has history of muscle spasms and notes that they have been more significant this afternoon. On my exam, she did have crackles noted in her upper airways bilaterally as well as wet cough noted. She was quite anxious appearing as well. Will give a dose of IV Norflex as well as a dose of IV Ativan, and will be admitted for further management. [facility], LAT[facility] Medical History NSTEMI (non-ST elevated myocardial infarction) Cardiac arrest COVID-19 Brain aneurysm Chronic pain Rheumatoid arthritis Kidney stones Kidney disease GERD (gastroesophageal reflux disease) Former smoker Sleep apnea Asthma Migraines Seizures Home Medications ???Medication ???Instructions ???Recorded ???Last Taken ???Type updnqmum-gyba-zopb 8 mg-folic 400 1 tab PO DAILY supplement 9 07/26/21 History mcg-K 50 mcg-lutein 300 mcg tablet levetiracetam 750 mg tablet 1,500 mg PO Q12H seizures 12/04/19 07/26/21 History fluticasone propionate 50 1 spray intranasal DAILY 08/24/22 Unknown History mcg/actuation nasal spray,suspension (Flonase Allergy Relief) cyclobenzaprine 10 mg tablet 10 mg PO TID PRN Muscle Spasm #20 05/11/24 Unknown Rx TABLETS oxycodone-acetaminophen 5 mg-325 1 tab PO Q6H PRN pain 5 days #20 1 10/08/23 Unknown Rx mg tablet (Percocet) tabs gabapentin 400 mg capsule 800 mg PO Q12H 09/04/24 Unknown Hi story levetiracetam 1,000 mg tablet 1,000 mg PO Q12H 09/04/24 Unknown History (Keppra) omeprazole 20 mg capsule,delayed 20 mg PO BID 09/04/24 Unknown Hist ory release tizanidine 2 mg capsule 2 mg PO TID PRN muscle spasticity 10/21/24 Unknown Rx #14 caps metaxalone 800 mg tablet 800 mg PO TID 7 days #21 tabs 02/22 10/18 Unknown Rx oxycodone-acetaminophen 5 mg-325 1 tab PO Q6H PRN pain 4 days #12 0 03/14/25 Unknown Rx mg tablet (Percocet) tabs azithromycin 250 mg tablet 250 mg PO DAILY #4 TABLETS 5 Unknown Rx oxycodone-acetaminophen 5 mg-325 1 tab PO Q4H PRN Pain 04/15/25 Unk nown History mg tablet Allergy/AdvReac Type Severity Reaction Status Date / Time Penicillins Allergy Anaphylaxis Verified 04/15/25 16:21 propoxyphene napsylate (From Allergy Rash Verified 04/15/25 16:21 Darvocet-N 100) adhesive tape (plastic tape) AdvReac Other Verified 04/15/25 16:21 hydrocodone bitartrate (From AdvReac Itching Verified 04/15/25 16:21 Vicodin) Iodinated Contrast Media AdvReac Vomiting Verified 04/15/25 16:21 (contrast dye - iodinated) venom-honey bee (bee venom AdvReac Chest Verified 04/15/25 16:21 (honey bee)) tightness Surgical History History of kidney surgery History of hysterectomy Hx of neck surgery Previous back surgery History of appendectomy History of cholecystectomy Social History household members: none Smoking Status: Current every day smoker tobacco type: cigarettes substance use type: does not use ROS Constitutional Constitutional: Reports fatigue; Denies chills, fever(s) or weakness Cardiovascular Cardiovascular: Reports chest pain; Denies dyspnea on exertion, (more content not included)... Normal [facility] Magnesiumon 04-15-2025 Magnesium [Mass/Vol] 2.2 mg/dL Normal 1.5-2.2 [facility] Comment on above: Performed By: #### L 501.2300, L501.5200 #### [facility] Laboratory [address] [place], [address] Magnesium measurement (mass/ volume)Ordered By: Hany Gooden on 04-15-2025 Magnesium (Unsp spec) [Mass/Vol] 2.2 mg/dL 1.5-2.2 [facility] Phosphoruson 04-15-2025 Phosphate [Mass/Vol] 3.1 mg/dL Normal 2.7-4.5 [facility] Comment on above: Performed By: #### L 501.2300, L501.5200 #### [facility] [address] [place], [address] 12 Lead EKGon 04-14-2025 12 Lead EKG [facility] Cardiovascular Services [address] [place] [address] 12 Lead EKG 04/14/25 0814 MR#: [id number] Acct: [id number] Name: ORTIZ MASON Rep #: [id number] : 1970 55 From: Dylan Gil MD Attending Dr: Status: DEP ER Ordering Dr: Alfred Parkinson DO Date: 04/14/25 Location: ED Sex: F C Admitted: Test Reason : Blood Pressure : */* mmHG Vent. Rate : 84 BPM Atrial Rate : 84 BPM P-R Int : 152 ms QRS Dur : 100 ms QT Int : 384 ms P-R-T Axes : 58 51 64 degrees QTcB Int : 453 ms Normal sinus rhythm RSR' or QR pattern in V1 suggests right ventricular conduction delay Borderline ECG Confirmed by WENDIE RICHARDSON, JAZMIN ([id number]), department editor MAYRA SMALL ([id number]) on 04/17/2025 7:31:25 AM Referred By: Confirmed By: JAZMIN GIL MD 04/17/25 0731 Date Dylan Gil MD CC: Dr. Alfred Parkinson, DO; Dr. Amandeep Loredo DO Signed Normal [facility] 36on 04-14-2025 36 S: Patient spoke wit h CAC nurse regarding B: Onset of symptoms/concern ED 04/14/25 A: Sharp pain in center of back with cough. Seen [place] ED today. Reports EKG and Xray performed and diagnosed with pneumonia. Was given antibiotic at ED and RX for home antibiotic. Reports she is having sharp pain after the morphine given in ED wore off. The pain is worsening since prior to ED visit and states she is unable to lye flat which is a new symptom. She is tearful. She states she is having hard time getting enough air to form sentences and experiencing tingling around her mouth. She is home with her spouse R: Advised to report to ED KADE Advised to have another adult drive, take medication list, ID and insurance card. Encouraged as symptoms worsened to call 911 due to difficultly breathing and tingling around mouth. Will report to [facility]. TE to PCP for notification. Reason for Disposition Sounds like a life-threatening emergency to the triager Protocols used: Recent Medical Visit for Illness [id number] Absolute lymphocyte countOrd ered By: Alfred Parkinson on 04-14-2025 Lymphocytes Auto (Unsp spec) [#/Vol] 3.03 10*3/uL 0.83-4.51 [facility] Absolute neutrophil countOrd ered By: Alfred Parkinson on 04-14-2025 Neutrophils (Bld) [#/Vol] 8.0 10*3/uL High 2.0-7.7 [facility] Anion gap in Serum or Plasma Ordered By: Alfred Parkinson on 04-14-2025 Anion gap [Moles/Vol] 14 mmol/L 5-15 [facility] Automated lymphocyte count a s percentage of total leukocytesOrdered By: Alfred Parkinson on 04-14-2025 Lymphocytes/100 WBC Auto (Unsp spec) 25.5 % 19-41 [facility] BUN/creatinine ratioOrdered By: Alfred Parkinson on 04-14-2025 Urea nitrogen/Creatinine [Mass ratio] 12.9 mg/mg 10-20 [facility] Basic Metabolic Profile (BMP )on 04-14-2025 BUN/CRE 12.9 RATIO Normal 10-20 [facility] Comment on above: Performed By: #### L 100.0100 #### [facility] [address] [place], [address] Calcium [Mass/Vol] 8.8 mg/dL Normal 7.6-11.0 [facility] Comment on above: Performed By: #### L 100.0100 #### [facility] [address] [place], [address] Chloride [Moles/Vol] 104 mmol/L Normal 98-108 [facility] Comment on above: Performed By: #### L 100.0100 #### [facility] [address] [place], [address] CO2 [Moles/Vol] 22.4 mmol/L Normal 21.0-32.0 [facility] Comment on above: Performed By: #### L 100.0100 #### [facility] [address] [place], [address] Creatinine [Mass/Vol] 0.66 mg/dL Low 0.70-1.20 [facility] Comment on above: Performed By: #### L 100.0100 #### [facility] [address] [place], [address] ECRCL 111.37 ml/min Normal 50-250 [facility] Comment on above: Performed By: #### L 100.0100 #### [facility] [address] [place], [address] GAP 14 Normal 5-15 [facility] Comment on above: Performed By: #### L 100.0100 #### [facility] [address] [place], [address] GFR/1.73 sq M.predicted among non-blacks MDRD (S/P/Bld) [Vol rate/Area] 103 mL/min/{1.73_m2} Normal >60 [facility] Comment on above: Result Comment: mL/m in/1.73m2 CKD-EPI Creatinine Equation (2020) Performed By: #### L 100.0100 #### [facility] [address] [place], [address] Glucose [Mass/Vol] 111 mg/dL High 70-99 [facility] Comment on above: Performed By: #### L 100.0100 #### [facility] [address] [place], [address] Potassium [Moles/Vol] 3.3 mmol/L Normal 3.3-5.1 [facility] Comment on above: Performed By: #### L 100.0100 #### [facility] [address] [place], [address] Sodium [Moles/Vol] 141 mmol/L Normal 133-145 [facility] Comment on above: Performed By: #### L 100.0100 #### [facility] [address] [place], [address] Urea nitrogen [Mass/Vol] 9 mg/dL Normal 4-19 [facility] Comment on above: Performed By: #### L 100.0100 #### [facility] [address] [place], [address] Basophil percentageOrdered B y: Alfred Parkinson on 04-14-2025 Basophils/100 WBC (Bld) 0.5 % 0-1 [facility] CBC W/Diff, Automatedon 03-25 Absolute Lymph 3.03 X10 3/uL Normal 0.83-4.51 [facility] Comment on above: Performed By: #### L 100.0100 #### [facility] [address] [place], [address] Absolute Neut 8.0 X10 3/uL High 2.0-7.7 [facility] Comment on above: Performed By: #### L 100.0100 #### [facility] [address] [place], [address] Basophils/100 WBC (Bld) 0.5 % Normal 0-1 [facility] Comment on above: Performed By: #### L 100.0100 #### [facility] [address] [place], [address] Eosinophils/100 WBC (Bld) 1.0 % Normal 0-5 [facility] Comment on above: Performed By: #### L 100.0100 #### [facility] [address] [place], [address] Erythrocyte distribution width (RBC) [Ratio] 13.1 % Normal 11.6-14.6 [facility] Comment on above: Performed By: #### L 100.0100 #### [facility] [address] [place], [address] Hematocrit (Bld) [Volume fraction] 42.2 % Normal 37-47 [facility] Comment on above: Performed By: #### L 100.0100 #### [facility] [address] [place], [address] Hemoglobin (Bld) [Mass/Vol] 13.9 g/dL Normal 12.0-15.0 [facility] Comment on above: Performed By: #### L 100.0100 #### [facility] [address] [place], [address] IG% 0.400 Normal 0.0-0.9 [facility] Comment on above: Result Comment: IG% - Immature Granulocytes (promyelocytes, myelocytes and metamyelocytes) > 1% indicates that a LEFT SHIFT is Present. Performed By: #### L 100.0100 #### [facility] [address] [place], [address] Lymphocytes/100 WBC (Bld) 25.5 % Normal 19-41 [facility] Comment on above: Performed By: #### L 100.0100 #### [facility] [address] [place], [address] MCH (RBC) [Entitic mass] 31.2 pg Normal 27.0-32.0 [facility] Comment on above: Performed By: #### L 100.0100 #### [facility] [address] [place], [address] MCHC (RBC) [Mass/Vol] 32.9 g/dL Normal 32-36 [facility] Comment on above: Performed By: #### L 100.0100 #### [facility] [address] [place], [address] MCV (RBC) [Entitic vol] 94.6 fL Normal 81-99 [facility] Comment on above: Performed By: #### L 100.0100 #### [facility] [address] [place], [address] Monocytes/100 WBC (Bld) 5.4 % Normal 0-10 [facility] Comment on above: Performed By: #### L 100.0100 #### [facility] [address] [place], [address] Neutrophils/100 WBC (Bld) 67.2 % Normal 47-70 [facility] Comment on above: Performed By: #### L 100.0100 #### [facility] [address] [place], [address] Nucleated RBC (Bld) [#/Vol] 0 10*3/uL Normal 0-5 [facility] Comment on above: Performed By: #### L 100.0100 #### [facility] [address] [place], [address] Platelet mean volume (Bld) [Entitic vol] 9.5 fL Normal 6.2-12.0 [facility] Comment on above: Performed By: #### L 100.0100 #### [facility] [address] [place], [address] Platelets (Bld) [#/Vol] 307 10*3/uL Normal 150-450 [facility] Comment on above: Performed By: #### L 100.0100 #### [facility] [address] [place], [address] RBC (Bld) [#/Vol] 4.46 10*6/uL Normal 4.2-5.4 [facility] Comment on above: Performed By: #### L 100.0100 #### [facility] [address] [place], [address] RDW SD 45.4 fl High 35.1-43.9 [facility] Comment on above: Performed By: #### L 100.0100 #### [facility] [address] [place], [address] WBC (Bld) [#/Vol] 11.9 10*3/uL High 4.4-11.0 [facility] Comment on above: Performed By: #### L 100.0100 #### [facility] [address] [place], [address] Carbon dioxide, total [Moles /volume] in Central venous bloodOrdered By: Alfred Parkinson on 04-14-2025 CO2 [Moles/Vol] 22.4 mmol/L 21.0-32.0 [facility] Chest PA and Lateralon 04-14 Chest PA and Lateral [facility] Imaging Services [address] [place] [address] Chest PA and Lateral MR#: [id number] Acct: [id number] Name: ORTIZ MASON Rep #: [id number] : 1970 F 55 From: Jose Miguel Ferreira PCP: Dr. Amandeep Loredo DO Status: [facility] ER Study: Chest PA and Lateral Date of Exam: 04/14/25 Exam# [id number] Ordering Dr: Alfred Parkinson DO PROCEDURE: CHEST [...] acute osseous change is seen. Reading Location: [place] [address] CC: Dr. Alfred Parkinson DO; Dr. Amandeep Loredo DO [place] Leadperson: Signed Normal [facility] Chloride assayOrdered By: Isamar Parkinson on 04-14-2025 Chloride [Moles/Vol] 104 mmol/L 98-108 [facility] Emergency Department Summary on 04-14-2025 Emergency Department Summary [facility] Medical Records Department [address] [place] [address] Emergency Department Summary 04/14/25 MR#: [id number] Acct: [id number] Name: ORTIZ MASON Rep #: [id number] : 1970 55 From: Alfred Parkinson DO PCP: Dr. Amandeep Loredo DO Status:DEP ER Location: ED HPI History of Present Illness Chief Complaint: Shortness of Breath Informant: patient Onset/Context/Timing Onset: Days Context: gradual Timing: Continuous Worsened by: - (Talking) Relieved by: Nothing Associated Symptoms cough, rhinorrhea and yellow sputum; Negative for post nasal drip, ear pain, fever, sore throat, chills, sweats, clear sputum, white sputum or green sputum Chest Pain: Positive for Sharp and Burning Narrative Narrative: Patient presents with shortness of breath that has been getting worse over the past several days. Patient states she had a coughing episode this morning. Patient states that during a coughing episode, she felt a pop in her back and chest. Patient states she has sharp pain in her chest. Patient states it is worse when she takes deep breaths. Patient states that is also worse with talking. Patient states nothing makes her breathing any better. Patient denies any fevers or chills. Patient admits to some rhinorrhea. Patient states she has been coughing up some yellow sputum. PE Risk Factors: Positive for Cancer; Negative for OCP + Smoking + > 35, Prior DVT or PE, Recent immobilization, Recent surgery or Recent travel [facility] Medical History (Updated 04/14/25 @ 09:[address] Alfred Parkinson, DO) NSTEMI (non-ST elevated myocardial infarction) Cardiac arrest COVID-19 Brain aneurysm Chronic pain Rheumatoid arthritis Kidney stones Kidney disease GERD (gastroesophageal reflux disease) Former smoker Sleep apnea Asthma Migraines Seizures Home Medications ???Medication ???Instructions ???Recorded ???Last Taken ???Type xnzschcg-qaqt-dgcl 8 mg-folic 400 1 tab PO DAILY [...] mg PO TID 7 days #21 tabs 02/22 10/18 Unknown Rx oxycodone-acetaminophen 5 mg-325 1 tab PO Q6H PRN pain 4 days #12 0 03/14/25 Unknown Rx mg tablet (Percocet) tabs azithromycin 250 mg tablet 250 mg PO DAILY #4 TABLETS 5 Unknown Rx Allergy/AdvReac Type Severity Reaction Status Date / Time Penicillins Allergy Anaphylaxis Verified 04/14/25 07:58 propoxyphene napsylate (From Allergy Rash Verified 04/14/25 07:58 Darvocet-N 100) adhesive tape (plastic tape) AdvReac Other Verified 04/14/25 07:58 hydrocodone bitartrate (From AdvReac Itching Verified 04/14/25 07:58 Vicodin) Iodinated Contrast Media AdvReac Vomiting Verified 04/14/25 07:58 (contrast dye - iodinated) venom-honey bee (bee venom AdvReac Chest Verified 04/14/25 07:58 (honey bee)) tightness Surgical History (Updated 04/14/25 @ 08:[address] Alfred Parkinson, ) History of kidney surgery History of hysterectomy Hx of neck surgery Previous back surgery History of appendectomy History of cholecystectomy Social History household members: none Smoking Status: Current every day smoker tobacco type: cigarettes substance use type: does not use ROS ROS ED Constitutional Constitutional ED: Denies chills or fever(s) Eyes Eyes: Denies blurry vision or change in vision ENT ENT ED: Denies rhinorrhea or sore throat Cardiovascular Cardiovascular: Reports chest pain; Denies palpitations Respiratory/Chest Respiratory/Chest: Reports cough and dyspnea Gastrointestinal Gastrointestinal: Reports nausea; De (more content not included)... Normal [facility] Eosinophil percentageOrdered By: Alfred Parkinson on 04-14-2025 Eosinophils/100 WBC (Bld) 1.0 % 0-5 [facility] Erythrocyte distribution wid th ratioOrdered By: Alfred Parkinson on 04-14-2025 Erythrocyte distribution width (RBC) [Ratio] 13.1 % 11.6-14.6 [facility] Erythrocyte distribution wid th standard deviationOrdered By: Alfred Parkinson on 04-14-2025 Erythrocyte distribution width (RBC) [Ratio] 45.4 fl High 35.1-43.9 [facility] Glomerular filtration rate ( GFR) estimation/1.73 sq m using serum, plasma, or whole bOrdered By: Alfred Parkinson on 04-14-2025 GFR/1.73 sq M.predicted among non-blacks MDRD (S/P/Bld) [Vol rate/Area] 103 mL/min/{1.73_m2} >60 [facility] Comment on above: mL/min/1.73m2 CKD-EP I Creatinine Equation (2020) Hematocrit Auto (Bld) [Volum e fraction]Ordered By: Alfred Parkinson on 04-14-2025 Hematocrit (Bld) [Volume fraction] 42.2 % 37-47 [facility] Hemoglobin measurementOrdere d By: Alfred Parkinson on 04-14-2025 Hemoglobin (Bld) [Mass/Vol] 13.9 g/dL 12.0-15.0 [facility] Immature granulocytes/100 WB C Auto (Bld)Ordered By: Alfred Parkinson on 04-14-2025 Immature granulocytes/100 WBC (Bld) 0.400 % 0.0-0.9 [facility] Comment on above: IG% - Immature Granu locytes (promyelocytes, myelocytes and metamyelocytes) > 1% indicates that a LEFT SHIFT is Present. L501.4021on 04-14-2025 Trop T High Sen < 6 Normal <=14 [facility] Comment on above: Performed By: #### L 100.0100 #### [facility] [address] [place], [address] MCV (mean corpuscular volume ) determinationOrdered By: Alfred Parkinson on 04-14-2025 MCV (RBC) [Entitic vol] 94.6 fL 81-99 [facility] Mean corpuscular hemoglobin (MCH) determinationOrdered By: Alfred Parkinson on 04-14-2025 MCH (RBC) [Entitic mass] 31.2 pg 27.0-32.0 [facility] Mean corpuscular hemoglobin concentration (MCHC) determinationOrdered By: Alfred Parkinson on 04-14-2025 MCHC (RBC) [Mass/Vol] 32.9 g/dL 32-36 [facility] Mean platelet volume determi nationOrdered By: Alfred Parkinson on 04-14-2025 Platelet mean volume (Bld) [Entitic vol] 9.5 fL 6.2-12.0 [facility] Monocyte percentageOrdered B y: Alfred Parkinson on 04-14-2025 Monocytes/100 WBC (Bld) 5.4 % 0-10 [facility] Neutrophil percentageOrdered By: Alfred Parkinson on 04-14-2025 Neutrophils/100 WBC (Bld) 67.2 % 47-70 [facility] Nucleated red blood cell per centageOrdered By: Alfred Parkinson on 04-14-2025 Nucleated RBC/100 WBC (Bld) [Ratio] 0 % 0-5 [facility] Platelet countOrdered By: Isamar Parkinson on 04-14-2025 Platelets (Bld) [#/Vol] 307 10*3/uL 150-450 [facility] Potassium measurement (mass/ volume)Ordered By: Alfred Parkinson on 04-14-2025 Potassium (Unsp spec) [Mass/Vol] 3.3 mmol/L 3.3-5.1 [facility] RBC Auto (Bld) [#/Vol]Ordere d By: Alfred Parkinson on 04-14-2025 RBC (Bld) [#/Vol] 4.46 10*6/uL 4.2-5.4 [facility] Serum creatinine measurement (mass/volume)Ordered By: Alfred Parkinson on 04-14-2025 Creatinine [Mass/Vol] 0.66 mg/dL Low 0.70-1.20 [facility] Serum glucose measurement (m ass/volume)Ordered By: Alfred Parkinson on 04-14-2025 Glucose [Mass/Vol] 111 mg/dL High 70-99 [facility] Serum or plasma calcium tania urement (mass/volume)Ordered By: Alfred Parkinson on 04-14-2025 Calcium [Mass/Vol] 8.8 mg/dL 7.6-11.0 [facility] Serum or plasma urea nitroge n measurement (mass/volume)Ordered By: Alfred Parkinson on 04-14-2025 Urea nitrogen [Mass/Vol] 9 mg/dL 4-19 [facility] Sodium levelOrdered By: Alfred Parkinson on 04-14-2025 Sodium [Moles/Vol] 141 mmol/L 133-145 [facility] Troponin T HS 2 HRon 025 Trop T High Sen Normal <=14 [facility] Comment on above: Result Comment: Canc elled via OM: Order cancelled - Patient discharged Performed By: #### L 100.0100 #### [facility] [address] [facility] [address] [place], [place], [id number] Troponin T HS 4 HRon 025 Trop T High Sen Normal <=14 [facility] Comment on above: Result Comment: Canc elled via OM: Order cancelled - Patient discharged Performed By: #### L 100.0100 #### [facility] [address] [place], [place], [address] [phone] Troponin T.cardiac [Mass/vol ume] in Serum or Plasma by High sensitivity methodOrdered By: Alfred Parkinson on 04-14-2025 Troponin T.cardiac High sensitivity method [Mass/Vol] < 6 ng/L <14 [facility] White blood cell (WBC) count Ordered By: Alfred Parkinson on 04-14-2025 WBC (Bld) [#/Vol] 11.9 10*3/uL High 4.4-11.0 [facility] Emergency Department Summary on 03-14-2025 Emergency Department Summary [facility] Medical Records Department [address] [place] [address] Emergency Department Summary 03/14/25 MR#: [id number] Acct: [id number] Name: ORTIZ MASON Rep #: [id number] : 1970 55 From: Zain Carvajal MD [...] Narrative Narrative: 55-year-old female history of prior [place], brain aneurysm, and A-fib not on blood [...] symptoms: No Recent Illness/Hospitalization : No PFSH PFS Medical History NSTEMI (non-ST elevated myocardial infarction) Cardiac arrest COVID-19 Brain aneurysm Chronic pain Rheumatoid arthritis Kidney stones Kidney disease GERD (gastroesophageal reflux disease) Former smoker Sleep apnea Asthma Migraines Seizures Home Medications ???Medication ???Instructions ???Recorded ???Last Taken ???Type dsjjqerg-mrnb-nhco 8 mg-folic 400 1 tab PO DAILY [...] mg PO TID 7 days #21 tabs 02/22 10/18 Unknown Rx oxycodone-acetaminophen 5 mg-325 1 tab [...] pain Genitourinary (more content not included)... Normal [facility] Thoracic Spine 2 Viewson Thoracic Spine 2 Views [facility] Imaging Services [address] [place] [address] Thoracic Spine 2 Views MR#: [id number] Acct: [id number] Name: ORTIZ MASON Rep #: [id number] : 1970 F 55 From: Ha Burch MD PCP: Dr. Amandeep Loredo DO Status: DEP ER Study: Thoracic Spine 2 Views Date of Exam: 03/14/25 Exam# [id number] Ordering Dr: Zain Carvajal MD EXAM: XR Thoracic Spine, 2 Views CLINICAL INDICATION: SUDDEN PAIN CATCHING GRANDSON TECHNIQUE: Frontal and lateral views of the thoracic spine. COMPARISON: No relevant prior studies available. 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 Normal alignment. No acute fracture. DISC SPACES: See above. SOFT TISSUES: Unremarkable. RAD/Thoracic Spine 2 Views IMPRESSION: 1. No acute fracture. 2. Degenerative changes thoracic spine as described. Reading [facility] CC: Dr. Amandeep Loredo DO; Dr. Zain Carvajal MD Bindery Leadperson: Signed Normal [facility] Emergency Department Summary on 01-05-2025 Emergency Department Summary [facility] Medical Records Department [address] [place] [address] Emergency Department Summary 01/05/25 MR#: [id number] Acct: [id number] Name: ORTIZ MASON Rep #: [id number] : 1970 54 From: Franki Flynn DO [...] and wrist were obtained through nursing triage. [facility] Medical History NSTEMI (non-ST elevated myocardial infarction) Cardiac arrest COVID-19 Brain aneurysm Chronic pain Rheumatoid arthritis Kidney stones Kidney disease GERD (gastroesophageal reflux disease) Former smoker Sleep apnea Asthma Migraines Seizures Home Medications ???Medication ???Instructions ???Recorded ???Last Taken ???Type qbxwobou-smyx-vfzi 8 mg-folic 400 1 tab PO DAILY [...] L Te (more content not included)... Normal [facility] HIP, UNI W/ Pelvis 2-3 Views on 01-05-2025 HIP, UNI W/ Pelvis 2-3 Views [facility] Imaging Services [address] [place] [address] HIP, UNI W/ Pelvis 2-3 Views MR#: [id number] Acct: [id number] Name: ORTIZ MASON Rep #: [id number] : 1970 F 54 From: Ha Guerrero MD PCP: Dr. Amandeep Loredo DO Status: REG ER Study: HIP, UNI W/ Pelvis 2-3 Views Date of Exam: Exam# [id number] Ordering Dr: Franki Flynn DO PROCEDURE: HIP, [...] 2. Additional description as above. Reading Location: [id number] CC: Dr. Franki Flynn DO; Dr. Amandeep Loredo DO Bindery Leadperson: Signed Normal [facility] Wrist min 3 Viewson 01-06-20 Wrist min 3 Views [facility] Imaging Services [address] [place] [address] Wrist min 3 Views MR#: [id number] Acct: [id number] Name: ORTIZ MASON Rep #: [id number] : 1970 F 54 From: Ha Guerrero MD PCP: Dr. Amandeep Loredo DO Status: REG ER Study: Wrist min 3 Views Date of Exam: 01/05/25 Exam# [id number] Ordering Dr: Franki Flynn DO PROCEDURE: WRIST [...] without visible acute displaced fracture. Reading Location: [facility] CC: Dr. Franki Flynn DO; Dr. Amandeep Loredo DO Bindery Leadperson: Signed Normal [facility] 12 Lead EKGon 10-20-2024 12 Lead EKG [facility] Cardiovascular Services [address] [place] [address] 12 Lead EKG 10/20/242050 MR#: [id number] Acct: [id number] Name: ORTIZ MASON Rep #: [id number] : 1970 54 From: Dawit Christensen MD [...] change was found Confirmed by Dawit Christensen ([id number]), department editor MAYRA SMALL ([id number]) on 10/21/2024 9:45:13 AM Referred By: Luis Angel Morales Confirmed By: Dawit Christensen 10/21/24 0945 Date Dawit Christensen MD CC: Dr. Amandeep Loredo DO; Dr. Luis Angel Morales DO Signed Normal [facility] Abdomen/Pelvis without Conto n 10-20-2024 Abdomen/Pelvis without Cont [facility] Imaging Services [address] [place] [address] Abdomen/Pelvis without Cont MR#: [id number] Acct: [id number] Name: ORTIZ MASON Rep #: [id number] : 1970 F 54 From: Bill Huff MD PCP: Dr. Amandeep Loredo DO Status: REG ER Study: Abdomen/Pelvis without Cont Date of Exam: 09/25 03/17 Exam# [id number] Ordering Dr: Luis Angel Morales DO PROCEDURE: [...] use of iterative reconstruction technique). Reading Location: [id number] CC: Dr. Amandeep Loredo DO; Dr. Luis Angel Morales DO Bindery Leadperson: Signed Normal [facility] Absolute lymphocyte countOrd ered By: Luis Angel Morales on 10-20-2024 Lymphocytes Auto (Unsp spec) [#/Vol] 3.21 10*3/uL 0.83-4.51 [facility] Absolute neutrophil countOrd ered By: Luis Angel Morales on 10-20-2024 Neutrophils (Bld) [#/Vol] 6.7 10*3/uL 2.0-7.7 [facility] Automated lymphocyte count a s percentage of total leukocytesOrdered By: Luis Angel Morales on 10-20-2024 Lymphocytes/100 WBC Auto (Unsp spec) 29.6 % 19-41 [facility] BUN/creatinine ratioOrdered By: Luis Angel Morales on 10-20-2024 Urea nitrogen/Creatinine [Mass ratio] 20.7 mg/mg High 10-20 [facility] Basophil percentageOrdered B y: Luis Angel Morales on 10-20-2024 Basophils/100 WBC (Bld) 0.6 % 0-1 [facility] Bilirubin Test strip Ql (U)O rdered By: Luis Angel Morales on 10-20-2024 Bilirubin Ql (U) Negative Negative [facility] Bilirubin, totalOrdered By: Luis Angel Morales on 10-20-2024 Bilirubin [Mass/Vol] 0.17 mg/dL 0.00-1.30 [facility] CBC W/Diff, Automatedon 09-25 Absolute Lymph 3.21 X10 3/uL Normal 0.83-4.51 [facility] Comment on above: Performed By: #### L 100.0100, L501.2450, L500.4050 ####[facility] [address] [place], [address] Absolute Neut 6.7 X10 3/uL Normal 2.0-7.7 [facility] Comment on above: Performed By: #### L 100.0100, L501.2450, L500.4050 ####[facility] [address] [place], [address] Basophils/100 WBC (Bld) 0.6 % Normal 0-1 [facility] Comment on above: Performed By: #### L 100.0100, L501.2450, L500.4050 ####[facility] [address] [place], [address] Eosinophils/100 WBC (Bld) 1.4 % Normal 0-5 [facility] Comment on above: Performed By: #### L 100.0100, L501.2450, L500.4050 ####[facility] [address] [place], [address] Erythrocyte distribution width (RBC) [Ratio] 12.8 % Normal 11.6-14.6 [facility] Comment on above: Performed By: #### L 100.0100, L501.2450, L500.4050 ####[facility] [address] [place], [address] Hematocrit (Bld) [Volume fraction] 45.4 % Normal 37-47 [facility] Comment on above: Performed By: #### L 100.0100, L501.2450, L500.4050 ####[facility] [address] [place], [address] Hemoglobin (Bld) [Mass/Vol] 15.1 g/dL High 12.0-15.0 [facility] Comment on above: Performed By: #### L 100.0100, L501.2450, L500.4050 ####[facility] [address] [place], [address] IG% 0.400 Normal 0.0-0.9 [facility] Comment on above: Result Comment: IG% - Immature Granulocytes (promyelocytes, myelocytes and metamyelocytes) > 1% indicates that a LEFT SHIFT is Present. Performed By: #### L 100.0100, L501.2450, L500.4050 ####[facility] [address] [place], [address] Lymphocytes/100 WBC (Bld) 29.6 % Normal 19-41 [facility] Comment on above: Performed By: #### L 100.0100, L501.2450, L500.4050 ####[facility] [address] [place], [address] MCH (RBC) [Entitic mass] 30.9 pg Normal 27.0-32.0 [facility] Comment on above: Performed By: #### L 100.0100, L501.2450, L500.4050 ####[facility] [address] [place], [address] MCHC (RBC) [Mass/Vol] 33.3 g/dL Normal 32-36 [facility] Comment on above: Performed By: #### L 100.0100, L501.2450, L500.4050 ####[facility] [address] [place], [address] MCV (RBC) [Entitic vol] 92.8 fL Normal 81-99 [facility] Comment on above: Performed By: #### L 100.0100, L501.2450, L500.4050 ####[facility] [address] [place], [address] Monocytes/100 WBC (Bld) 6.1 % Normal 0-10 [facility] Comment on above: Performed By: #### L 100.0100, L501.2450, L500.4050 ####[facility] [address] [place], [address] Neutrophils/100 WBC (Bld) 61.9 % Normal 47-70 [facility] Comment on above: Performed By: #### L 100.0100, L501.2450, L500.4050 ####[facility] [address] [place], [address] Nucleated RBC (Bld) [#/Vol] 0 10*3/uL Normal 0-5 [facility] Comment on above: Performed By: #### L 100.0100, L501.2450, L500.4050 ####[facility] [address] [place], [address] Platelet mean volume (Bld) [Entitic vol] 9.8 fL Normal 6.2-12.0 [facility] Comment on above: Performed By: #### L 100.0100, L501.2450, L500.4050 ####[facility] [address] [place], [address] Platelets (Bld) [#/Vol] 312 10*3/uL Normal 150-450 [facility] Comment on above: Performed By: #### L 100.0100, L501.2450, L500.4050 ####[facility] [address] [place], [address] RBC (Bld) [#/Vol] 4.89 10*6/uL Normal 4.2-5.4 [facility] Comment on above: Performed By: #### L 100.0100, L501.2450, L500.4050 ####[facility] [address] [place], [address] RDW SD 43.4 fl Normal 35.1-43.9 [facility] Comment on above: Performed By: #### L 100.0100, L501.2450, L500.4050 ####[facility] [address] [place], [address] WBC (Bld) [#/Vol] 10.8 10*3/uL Normal 4.4-11.0 [facility] Comment on above: Performed By: #### L 100.0100, L501.2450, L500.4050 ####[facility] [address] [place], [address] Carbon dioxide measurementOr dered By: Luis Angel Morales on 10-20-2024 CO2 [Moles/Vol] 21.1 mmol/L Low 22.0-29.0 [facility] Chloride measurementOrdered By: Luis Angel Morales on 10-20-2024 Chloride [Moles/Vol] 104 mmol/L 96-108 [facility] Comprehensive Metabolic Prof ilon 10-20-2024 Albumin [Mass/Vol] 4.0 g/dL Normal 3.5-5.0 [facility] Comment on above: Performed By: #### L 100.0100, L501.2450, L500.4050 ####[facility] [address] [place], [address] Albumin/Globulin [Mass ratio] 1.3 {ratio} Normal 0.9-2.4 [facility] Comment on above: Performed By: #### L 100.0100, L501.2450, L500.4050 ####[facility] [address] [place], [address] ALK PHOS 136 U/L High 35-104 [facility] Comment on above: Performed By: #### L 100.0100, L501.2450, L500.4050 ####[facility] [address] [place], [address] ALT [Catalytic activity/Vol] 9 U/L Normal <=34 [facility] Comment on above: Performed By: #### L 100.0100, L501.2450, L500.4050 ####[facility] [address] [place], [address] Anion gap [Moles/Vol] 11 mmol/L Normal 5-15 [facility] Comment on above: Performed By: #### L 100.0100, L501.2450, L500.4050 ####[facility] [address] [place], [address] AST [Catalytic activity/Vol] 20 U/L Normal <=31 [facility] Comment on above: Result Comment: Hemo lysis present, Results??could be affected. ?? Performed By: #### L 100.0100, L501.2450, L500.4050 ####[facility] [address] [place], [address] Bilirubin [Mass/Vol] 0.17 mg/dL Normal 0.00-1.30 [facility] Comment on above: Performed By: #### L 100.0100, L501.2450, L500.4050 ####[facility] [address] [place], [address] BUN/CRE 20.7 RATIO High 10-20 [facility] Comment on above: Performed By: #### L 100.0100, L501.2450, L500.4050 ####[facility] [address] [place], [address] Calcium [Mass/Vol] 9.0 mg/dL Normal 7.6-11.0 [facility] Comment on above: Performed By: #### L 100.0100, L501.2450, L500.4050 ####[facility] [address] [place], [address] Chloride [Moles/Vol] 104 mmol/L Normal 96-108 [facility] Comment on above: Performed By: #### L 100.0100, L501.2450, L500.4050 ####[facility] [address] [place], [address] CO2 [Moles/Vol] 21.1 mmol/L Low 22.0-29.0 [facility] Comment on above: Performed By: #### L 100.0100, L501.2450, L500.4050 ####[facility] [address] [place], [address] Creatinine [Mass/Vol] 0.59 mg/dL Low 0.70-1.20 [facility] Comment on above: Performed By: #### L 100.0100, L501.2450, L500.4050 ####[facility] [address] [place], [address] ECRCL 126.27 ml/min Normal [facility] Comment on above: Performed By: #### L 100.0100, L501.2450, L500.4050 ####[facility] [address] [place], [address] GFR/1.73 sq M.predicted among non-blacks MDRD (S/P/Bld) [Vol rate/Area] 106 mL/min/{1.73_m2} Normal >60 [facility] Comment on above: Result Comment: mL/m in/1.73m2 CKD-EPI Creatinine Equation (2020) Performed By: #### L 100.0100, L501.2450, L500.4050 ####[facility] [address] [place], [address] Globulin (S) [Mass/Vol] 3.0 g/dL Normal 2.2-4.2 [facility] Comment on above: Performed By: #### L 100.0100, L501.2450, L500.4050 ####[facility] [address] [place], [address] Glucose [Mass/Vol] 93 mg/dL Normal 70-99 [facility] Comment on above: Performed By: #### L 100.0100, L501.2450, L500.4050 ####[facility] [address] [place], [address] Potassium [Moles/Vol] 3.9 mmol/L Normal 3.3-5.1 [facility] Comment on above: Result Comment: Hemo lysis present, Results??could be affected. ?? Performed By: #### L 100.0100, L501.2450, L500.4050 ####[facility] [address] [place], [address] Sodium [Moles/Vol] 136 mmol/L Normal 133-145 [facility] Comment on above: Performed By: #### L 100.0100, L501.2450, L500.4050 ####[facility] [address] [place], [address] T PROT 7.0 g/dL Normal 5.9-8.4 [facility] Comment on above: Performed By: #### L 100.0100, L501.2450, L500.4050 ####[facility] [address] [place], [address] Urea nitrogen [Mass/Vol] 12 mg/dL Normal 4-19 [facility] Comment on above: Performed By: #### L 100.0100, L501.2450, L500.4050 ####[facility] [address] [place], [address] Emergency Department Summary on 10-20-2024 Emergency Department Summary [facility] Medical Records Department [address] [place] [address] Emergency Department Summary 10/20/24 MR#: [id number] Acct: [id number] Name: ORTIZ MASON Rep #: [id number] : 1970 54 From: Luis Angel Morales DO PCP: Dr. Amandeep Loredo DO Status:REG ER Location: ED ADDENDUM by Dr. Luis Angel Morales DO on 10/21/24 at 0033 Patient is EKG reviewed by myself which showed sinus rhythm with a rate of 70 bpm. 10/21/24 003 Cosigner Signature (if applicable): cc: Dr. Amandeep [...] use states that she does smoke cigarettes. [facility] Medical History NSTEMI (non-ST elevated myocardial infarction) Cardiac arrest COVID-19 Brain aneurysm Chronic pain Rheumatoid arthritis Kidney stones Kidney disease GERD (gastroesophageal reflux disease) Former smoker Sleep apnea Asthma Migraines Seizures Home Medications ???Medication ???Instructions ???Recorded ???Last Taken ???Type kppsqjiu-fvqp-qlhj 8 mg-folic 400 1 tab PO DAILY [...] conjunctival inj (more content not included)... Normal [facility] Eosinophil percentageOrdered By: Luis Angel Morales on 10-20-2024 Eosinophils/100 WBC (Bld) 1.4 % 0-5 [facility] Erythrocyte distribution wid th ratioOrdered By: Luis Angel Morales on 10-20-2024 Erythrocyte distribution width (RBC) [Ratio] 12.8 % 11.6-14.6 [facility] Erythrocyte distribution wid th standard deviationOrdered By: Luis Angel Morales on 10-20-2024 Erythrocyte distribution width (RBC) [Ratio] 43.4 fl 35.1-43.9 [facility] Glomerular filtration rate ( GFR) estimation/1.73 sq m using serum, plasma, or whole bOrdered By: Luis Angel Morales on 10-20-2024 GFR/1.73 sq M.predicted among non-blacks MDRD (S/P/Bld) [Vol rate/Area] 106 mL/min/{1.73_m2} >60 [facility] Comment on above: mL/min/1.73m2 CKD-EP I Creatinine Equation (2020) Hematocrit Auto (Bld) [Volum e fraction]Ordered By: Luis Angel Morales on 10-20-2024 Hematocrit (Bld) [Volume fraction] 45.4 % 37-47 [facility] Hemoglobin measurementOrdere d By: Luis Angel Morales on 10-20-2024 Hemoglobin (Bld) [Mass/Vol] 15.1 g/dL High 12.0-15.0 [facility] Immature granulocytes/100 WB C Auto (Bld)Ordered By: Luis Angel Morales on 10-20-2024 Immature granulocytes/100 WBC (Bld) 0.400 % 0.0-0.9 [facility] Comment on above: IG% - Immature Granu locytes (promyelocytes, myelocytes and metamyelocytes) > 1% indicates that a LEFT SHIFT is Present. Ketones Test strip Ql (U)Ord ered By: Luis Angel Morales on 10-20-2024 Ketones Ql (U) Negative Negative [facility] Laboratory - Chemistry and C hemistry - challengeOrdered By: Luis Angel Morales on 10-20-2024 AST [Catalytic activity/Vol] 20 U/L <32 [facility] Comment on above: Hemolysis present, R esults could be affected. Lipaseon 10-20-2024 Lipase [Catalytic activity/Vol] 28 U/L Normal 13-75 [facility] Comment on above: Result Comment: Gibson ferreira note: LIPASE revised reference range effective 22. New Lipase methodology. Expected to produce lower values than the previous assay method. NEW Reference Range: 13 - 75 U/L Performed By: #### L 100.0100, L501.2450, L500.4050 ####[facility] [address] [place], [place], [address] Lipase measurementOrdered By : Luis Angel Morales on 10-20-2024 Lipase [Catalytic activity/Vol] 28 U/L 13-75 [facility] Comment on above: Please note:LIPASE r evised reference range effective 22. New Lipase methodology. Expected to produce lower values than the previous assay method. NEW Reference Range: 13 - 75 U/L MCV (mean corpuscular volume ) determinationOrdered By: Luis Angel Morales on 10-20-2024 MCV (RBC) [Entitic vol] 92.8 fL 81-99 [facility] Mean corpuscular hemoglobin (MCH) determinationOrdered By: Luis Angel Morales on 10-20-2024 MCH (RBC) [Entitic mass] 30.9 pg 27.0-32.0 [facility] Mean corpuscular hemoglobin concentration (MCHC) determinationOrdered By: Luis Angel Morales on 10-20-2024 MCHC (RBC) [Mass/Vol] 33.3 g/dL 32-36 [facility] Mean platelet volume determi nationOrdered By: Luis Angel Morales on 10-20-2024 Platelet mean volume (Bld) [Entitic vol] 9.8 fL 6.2-12.0 [facility] Microscopic analysis of urin e for red blood cells (RBC)Ordered By: Luis Angel Morales on 10-20-2024 Microscopic analysis of urine for red blood cells (RBC) 0-5 SEEN /hpf 0-5 [facility] Monocyte percentageOrdered B y: Luis Angel Morales on 10-20-2024 Monocytes/100 WBC (Bld) 6.1 % 0-10 [facility] Mucus LM Ql (Urine sed)Order ed By: Luis Angel Morales on 10-20-2024 Mucus Ql (Urine sed) 0 SEEN /hpf [facility] Neutrophil percentageOrdered By: Luis Angel Morales on 10-20-2024 Neutrophils/100 WBC (Bld) 61.9 % 47-70 [facility] Nitrite Test strip Ql (U)Ord ered By: Luis Angel Morales on 10-20-2024 Nitrite Ql (U) Negative Negative [facility] Nucleated red blood cell per centageOrdered By: Luis Angel Morales on 10-20-2024 Nucleated RBC/100 WBC (Bld) [Ratio] 0 % 0-5 [facility] Platelet countOrdered By: Martínez Morales on 10-20-2024 Platelets (Bld) [#/Vol] 312 10*3/uL 150-450 [facility] Protein Test strip Ql (U)Ord ered By: Luis Angel Morales on 10-20-2024 Protein Ql (U) 15 mg/dl High Negative [facility] RBC Auto (Bld) [#/Vol]Ordere d By: Luis Angel Morales on 10-20-2024 RBC (Bld) [#/Vol] 4.89 10*6/uL 4.2-5.4 [facility] Serum creatinine measurement (mass/volume)Ordered By: Luis Angel Morales on 10-20-2024 Creatinine [Mass/Vol] 0.59 mg/dL Low 0.70-1.20 [facility] Serum globulin measurementOr dered By: Luis Angel Morales on 10-20-2024 Globulin (S) [Mass/Vol] 3.0 g/dL 2.2-4.2 [facility] Serum glucose measurement (m ass/volume)Ordered By: Luis Angel Morales on 10-20-2024 Glucose [Mass/Vol] 93 mg/dL 70-99 [facility] Serum or plasma alanine villegas otransferase (ALT) measurementOrdered By: Luis Angel Morales on 10-20-2024 ALT [Catalytic activity/Vol] 9 U/L <35 [facility] Serum or plasma albumin tania urement (mass/volume)Ordered By: Luis Angel Morales on 10-20-2024 Albumin [Mass/Vol] 4.0 g/dL 3.5-5.0 [facility] Serum or plasma albumin/glob ulin mass ratioOrdered By: Luis Angel Morales on 10-20-2024 Albumin/Globulin [Mass ratio] 1.3 {ratio} 0.9-2.4 [facility] Serum or plasma alkaline kiki sphatase measurementOrdered By: Luis Angel Morales on 10-20-2024 ALP [Catalytic activity/Vol] 136 U/L High 35-104 [facility] [facility] Serum or plasma anion gap de termination (moles/volume)Ordered By: Luis Angel Morales on 10-20-2024 Anion gap [Moles/Vol] 11 mmol/L 5-15 [facility] Serum or plasma calcium tania urement (mass/volume)Ordered By: Luis Angel Morales on 10-20-2024 Calcium [Mass/Vol] 9.0 mg/dL 7.6-11.0 [facility] Serum or plasma potassium me asurementOrdered By: Luis Angel Morales on 10-20-2024 Potassium [Moles/Vol] 3.9 mmol/L 3.3-5.1 [facility] Comment on above: Hemolysis present, R esults could be affected. Serum or plasma sodium measu rement (moles/volume)Ordered By: Luis Angel Morales on 10-20-2024 Sodium [Moles/Vol] 136 mmol/L 133-145 [facility] Serum or plasma urea nitroge n measurement (mass/volume)Ordered By: Luis Angel Morales 10-20-2024 Urea nitrogen [Mass/Vol] 12 mg/dL 4-19 [facility] Squamous epithelial cells de tection in urine sediment by light microscopyOrdered By: Luis Angel Morales 10-20-2024 Epithelial cells.squamous LM Ql (Urine sed) 0-5 SEEN /hpf 5-10 [facility] Total proteinOrdered By: Janes Morales on 10-20-2024 Protein [Mass/Vol] 7.0 g/dL 5.9-8.4 [facility] Urinalysis, Completeon 10-20 RBC 0-5 SEEN Normal 0-5 [facility] Comment on above: Order Comment: CLEAN CATCH Performed By: #### L 400.0001 #### [facility] [address] [place], [address] EPI,SQUAMOUS 0-5 SEEN Normal 5-10 [facility] Comment on above: Order Comment: CLEAN CATCH Performed By: #### L 400.0001 #### [facility] [address] [place], [address] WBC 5-10 SEEN Normal 0-5 [facility] Comment on above: Order Comment: CLEAN CATCH Performed By: #### L 400.0001 #### [facility] [address] [facility] [address] BACTERIA 0 SEEN Normal None Seen [facility] Comment on above: Order Comment: CLEAN CATCH Performed By: #### L 400.0001 #### [facility] [address] [place], [address] Mucus Ql (Urine sed) 0 SEEN Normal [facility] Comment on above: Order Comment: CLEAN CATCH Performed By: #### L 400.0001 #### [facility] [address] [place], [address] Urine clarityOrdered By: Janes Morales on 10-20-2024 Clarity (U) Clear Clear [facility] Urine color determinationOrd ered By: Luis Angel Morales on 10-20-2024 Color (U) Yellow Yellow [facility] Urine glucose detectionOrder ed By: Luis Angel Morales on 10-20-2024 Glucose Ql (U) Normal mg/dl Normal [facility] Urine leukocyte esterase det ection by dipstickOrdered By: Luis Angel Morales on 10-20-2024 Leukocyte esterase Test strip Ql (U) 25 /ul High Negative [facility] Urine pHOrdered By: Luis Angel llamasr on 10-20-2024 pH (U) 6.0 [pH] 5.0 - 8.0 [facility] Urine sediment bacteria coun t by microscopy (number/high power field)Ordered By: Luis Angel Morales on 10-20-2024 Bacteria LM.HPF (Urine sed) [#/Area] 0 /[HPF] None Seen [facility] Urine specific gravity measu rementOrdered By: Luis Angel Morales on 10-20-2024 Specific gravity (U) [Rel density] 1.015 1.002-1.030 [facility] Urine urobilinogen measureme ntOrdered By: Luis Angel Morales on 10-20-2024 Urobilinogen Ql (U) Normal mg/dl Normal [facility] White blood cell (WBC) count Ordered By: Luis Angel Morales on 10-20-2024 WBC (Bld) [#/Vol] 10.8 10*3/uL 4.4-11.0 [facility] White blood cell countOrdere d By: Luis Angel Morales on 10-20-2024 White blood cell count 5-10 SEEN /hpf 0-5 [facility] 36on 09-29-2024 36 S: Patient spoke wit h [facility] nurse regarding cough and chest pain. B: [...] today in PCP or POD office in [place]. Patient declined POD appointment in [place] and will go to an urgent care [...] for Disposition Wheezing is present Protocols used: [id number] Normal [facility] Emergency Department Summary on 09-04-2024 Emergency Department Summary [facility] Medical Records Department [address] [place] [address] Emergency Department Summary 09/04/24 MR#: [id number] Acct: [id number] Name: ORTIZ MASON Rep #: [id number] : 1970 54 From: Narciso Baron DO PCP: Dr. Amandeep Loredo, DO Status:REG ER Location: ED HPI History of Present Illness Chief Complaint: Fall [facility] Medical History NSTEMI (non-ST elevated myocardial infarction) Cardiac arrest COVID-19 Brain aneurysm Chronic pain Rheumatoid arthritis Kidney stones Kidney disease GERD (gastroesophageal reflux disease) Former smoker Sleep apnea Asthma Migraines Seizures Home Medications ???Medication ???Instructions ???Recorded ???Last Taken ???Type gbdkukmw-efnb-ansy 8 mg-folic 400 1 tab PO DAILY [...] Oxygen Delivery Method Room Air Room Air MDM MDM MDM Narrative Medical [...] intact strengt (more content not included)... Normal [facility] HIP, UNI W/ Pelvis 2-3 Views on 09-04-2024 HIP, UNI W/ Pelvis 2-3 Views [facility] Imaging Services [address] [place], [place] [address] HIP, UNI W/ Pelvis 2-3 Views MR#: [id number] Acct: [id number] Name: ORTIZ MASON Rep #: [id number] : 1970 F 54 From: Beverly pedraza MD PCP: Dr. Amandeep Loredo DO Status: [facility] ER Study: HIP, UNI W/ Pelvis 2-3 Views Date of Exam: 08/17 Exam# [id number] Ordering Dr: [place] [id number] INDICATION: left hip pain EXAMINATION/TECHNIQUE: X-RAY - [...] Amandeep Loredo DO; Dr. Narciso Baron DO Bindery Leadperson: Signed Normal [facility] Emergency Department Summary on 08-07-2024 Emergency Department Summary [facility] Medical Records Department [address] [place] [address] Emergency Department Summary 08/07/24 MR#: [id number] Acct: [id number] Name: ORTIZ MASON Rep #: [id number] : 1970 54 From: Dianna QUINTANA PCP: [...] her right leg. She denies other injury. [facility] Medical History NSTEMI (non-ST elevated myocardial infarction) Cardiac arrest COVID-19 Brain aneurysm Chronic pain Rheumatoid arthritis Kidney stones Kidney disease GERD (gastroesophageal reflux disease) Former smoker Sleep apnea Asthma Migraines Seizures Home Medications ???Medication ???Instructions ???Recorded ???Last Taken ???Type bryonklz-lhcw-uimm 8 mg-folic 400 1 tab PO DAILY [...] 70 pound (more content not included)... Normal [facility] Knee 3 Viewson 08-07-2024 Knee 3 Views [facility] Imaging Services [address] [place], [place] [address] Knee 3 Views MR#: [id number] Acct: [id number] Name: ORTIZ MASON Rep #: [id number] : 1970 F 54 From: Delbert rebolledo MD PCP: Dr. Amandeep Loredo, DO Status: REG ER Study: Knee 3 Views Date of Exam: 08/07/24 Exam# [id number] Ordering Dr: Dianna Seo [id number] EXAM: XR RIGHT KNEE, 3 VIEWS CLINICAL [...] MD at 22:11 EST , CC: Dr. Aamndeep Loredo DO; LILIAN Alcocer Bindery Leadperson: Signed [facility] 36on 07-14-2024 36 Spoke to pt to mansiflora strauss her how sorry we are to hear [...] will try the recommendations and states understanding. Normal [facility] 36 I'm sorry to hear ab out [...] Dr. Jerez for GNS interrogation. Thanks. Normal [facility] 36 Pt called today arias use [...] her phone is a business phone. Normal [facility] Basic Metabolic Profile (BMP )on 06-29-2024 BUN/CRE 18.2 RATIO Normal 06-12 [facility] Comment on above: Performed By: #### L 100.0100 #### [facility] [address] [place], [address] CA,Total 8.8 mg/dL Normal 8.5-10.1 [facility] Comment on above: Performed By: #### L 100.0100 #### [facility] [address] [place], [address] Chloride [Moles/Vol] 112 mmol/L High 98-107 [facility] Comment on above: Performed By: #### L 100.0100 #### [facility] [address] [place], [address] CO2 [Moles/Vol] 24.0 mmol/L Normal 21.0-32.0 [facility] Comment on above: Performed By: #### L 100.0100 #### [facility] [address] [place], [address] Creatinine [Mass/Vol] 0.55 mg/dL Normal 0.55-1.02 [facility] Comment on above: Result Comment: The validity of the calculated GFR GFRAA in patients over 70 years has not been determined. Clinical correlation is essential. Performed By: #### L 100.0100 #### [facility] [address] [place], [address] ECRCL 131.95 ml/min Normal [facility] Comment on above: Performed By: #### L 100.0100 #### [facility] [address] [place], [address] EST GFR - AA 147 mL/min Normal >60 [facility] Comment on above: Result Comment: Afri can Somali GFR Calc Performed By: #### L 100.0100 #### [facility] [address] [place], [address] GAP 5 Normal 5-15 [facility] Comment on above: Performed By: #### L 100.0100 #### [facility] [address] [place], [address] GFR/1.73 sq M.predicted among non-blacks MDRD (S/P/Bld) [Vol rate/Area] 122 mL/min/{1.73_m2} Normal >60 [facility] Comment on above: Result Comment: Non- GFR Calc Performed By: #### L 100.0100 #### [facility] [address] [place], [address] Glucose [Mass/Vol] 100 mg/dL Normal 74-106 [facility] Comment on above: Result Comment: Fast ing Glucose result from 100 to 125 mg/dL suggests IMPAIRED HOMEOSTASIS per A.D.A. criteria. Performed By: #### L 100.0100 #### [facility] [address] [place], [address] Potassium [Moles/Vol] 4.0 mmol/L Normal 3.5-5.1 [facility] Comment on above: Performed By: #### L 100.0100 #### [facility] [address] [place], [address] Sodium [Moles/Vol] 141 mmol/L Normal 136-145 [facility] Comment on above: Performed By: #### L 100.0100 #### [facility] [address] [place], [address] Urea nitrogen [Mass/Vol] 10 mg/dL Normal 7-18 [facility] Comment on above: Performed By: #### L 100.0100 #### [facility] [address] [place], [address] CBC W/Diff, Automatedon 11-0 -2023 Absolute Lymph 2.29 X10 3/uL Normal 0.83-4.51 [facility] Comment on above: Performed By: #### L 100.0100 #### [facility] [address] [place], [address] Absolute Neut 2.3 X10 3/uL Normal 2.0-7.7 [facility] Comment on above: Performed By: #### L 100.0100 #### [facility] [address] [place], [address] Basophils/100 WBC (Bld) 0.8 % Normal 0-1 [facility] Comment on above: Performed By: #### L 100.0100 #### [facility] [address] [place], [address] Eosinophils/100 WBC (Bld) 2.5 % Normal 0-5 [facility] Comment on above: Performed By: #### L 100.0100 #### [facility] [address] [place], [address] Erythrocyte distribution width (RBC) [Ratio] 12.2 % Normal 11.6-14.6 [facility] Comment on above: Performed By: #### L 100.0100 #### [facility] [address] [place], [address] Hematocrit (Bld) [Volume fraction] 42.6 % Normal 37-47 [facility] Comment on above: Performed By: #### L 100.0100 #### [facility] [address] [place], [address] Hemoglobin (Bld) [Mass/Vol] 14.1 g/dL Normal 12.0-15.0 [facility] Comment on above: Performed By: #### L 100.0100 #### [facility] [address] [place], [address] IG% 0.200 Normal 0.0-0.9 [facility] Comment on above: Result Comment: IG% - Immature Granulocytes (promyelocytes, myelocytes and metamyelocytes) > 1% indicates that a LEFT SHIFT is Present. Performed By: #### L 100.0100 #### [facility] [address] [place], [address] Lymphocytes/100 WBC (Bld) 43.9 % High 19-41 [facility] Comment on above: Performed By: #### L 100.0100 #### [facility] [address] [place], [address] MCH (RBC) [Entitic mass] 31.2 pg Normal 27.0-32.0 [facility] Comment on above: Performed By: #### L 100.0100 #### [facility] [address] [place], [address] MCHC (RBC) [Mass/Vol] 33.1 g/dL Normal 32-36 [facility] Comment on above: Performed By: #### L 100.0100 #### [facility] [address] [place], [address] MCV (RBC) [Entitic vol] 94.2 fL Normal 81-99 [facility] Comment on above: Performed By: #### L 100.0100 #### [facility] [address] [place], [address] Monocytes/100 WBC (Bld) 8.2 % Normal 0-10 [facility] Comment on above: Performed By: #### L 100.0100 #### [facility] [address] [place], [address] Neutrophils/100 WBC (Bld) 44.4 % Low 47-70 [facility] Comment on above: Performed By: #### L 100.0100 #### [facility] [address] [place], [address] Nucleated RBC (Bld) [#/Vol] 0 10*3/uL Normal 0-5 [facility] Comment on above: Performed By: #### L 100.0100 #### [facility] [address] [place], [address] Platelet mean volume (Bld) [Entitic vol] 9.6 fL Normal 6.2-12.0 [facility] Comment on above: Performed By: #### L 100.0100 #### [facility] [address] [place], [address] Platelets (Bld) [#/Vol] 262 10*3/uL Normal 150-450 [facility] Comment on above: Performed By: #### L 100.0100 #### [facility] [address] [place], [address] RBC (Bld) [#/Vol] 4.52 10*6/uL Normal 4.2-5.4 [facility] Comment on above: Performed By: #### L 100.0100 #### [facility] [address] [place], [address] RDW SD 42.3 fl Normal 35.1-43.9 [facility] Comment on above: Performed By: #### L 100.0100 #### [facility] [address] [place], [address] WBC (Bld) [#/Vol] 5.2 10*3/uL Normal 4.4-11.0 [facility] Comment on above: Performed By: #### L 100.0100 #### [facility] [address] [place], [address] Absolute Neut Normal 2.0-7.7 [facility] Comment on above: Result Comment: This specimen has been REJECTED due to Laboratory criteria: Clotted. ISAMAR CONTRERAS has been notified of need of recollection. 06/29/24 Jasper Michael Performed By: #### L 100.0100 #### [facility] [address] [place], [address] HCT Normal 37-47 [facility] Comment on above: Result Comment: This specimen has been REJECTED due to Laboratory criteria: Clotted. DIANE ER has been notified of need of recollection. 06/29/241034 Kellie Haven Performed By: #### L 100.0100 #### [facility] [address] [place], [address] HGB Normal 12.0-15.0 [facility] Comment on above: Result Comment: This specimen has been REJECTED due to Laboratory criteria: Clotted. DIANE ER has been notified of need of recollection. 06/29/241034 Kellie Haven Performed By: #### L 100.0100 #### [facility] [address] [place], [address] MCH Normal 27.0-32.0 [facility] Comment on above: Result Comment: This specimen has been REJECTED due to Laboratory criteria: Clotted. DIANE ER has been notified of need of recollection. 06/29/241034 Kellie Haven Performed By: #### L 100.0100 #### [facility] [address] [place], [address] MCHC Normal 32-36 [facility] Comment on above: Result Comment: This specimen has been REJECTED due to Laboratory criteria: Clotted. DIANE ER has been notified of need of recollection. 06/29/241034 Kellie Haven Performed By: #### L 100.0100 #### [facility] [address] [place], [address] MCV Normal 81-99 [facility] Comment on above: Result Comment: This specimen has been REJECTED due to Laboratory criteria: Clotted. DIANE ER has been notified of need of recollection. 06/29/241034 Kellie Haven Performed By: #### L 100.0100 #### [facility] [address] [place], [address] NEUT% Normal 47-70 [facility] Comment on above: Result Comment: This specimen has been REJECTED due to Laboratory criteria: Clotted. DIANE ER has been notified of need of recollection. 06/29/245 Kellie Haven Performed By: #### L 100.0100 #### [facility] [address] [place], [address] PLT Normal 150-450 [facility] Comment on above: Result Comment: This specimen has been REJECTED due to Laboratory criteria: Clotted. DIANE ER has been notified of need of recollection. 06/29/245 Kellie Haven Performed By: #### L 100.0100 #### [facility] [address] [place], [address] RBC Normal 4.2-5.4 [facility] Comment on above: Result Comment: This specimen has been REJECTED due to Laboratory criteria: Clotted. DIANE ER has been notified of need of recollection. 06/29/245 Kellie Haven Performed By: #### L 100.0100 #### [facility] [address] [place], [address] RDW CV Normal 11.6-14.6 [facility] Comment on above: Result Comment: This specimen has been REJECTED due to Laboratory criteria: Clotted. DIANE ER has been notified of need of recollection. 06/29/241034 Kellie Haven Performed By: #### L 100.0100 #### [facility] [address] [place], [address] RDW SD Normal 35.1-43.9 [facility] Comment on above: Result Comment: This specimen has been REJECTED due to Laboratory criteria: Clotted. DIANE ER has been notified of need of recollection. 06/29/245 Kellie Haven Performed By: #### L 100.0100 #### [facility] [address] [place], [address] WBC Normal 4.4-11.0 [facility] Comment on above: Result Comment: This specimen has been REJECTED due to Laboratory criteria: Clotted. DIANE, ER has been notified of need of recollection. 06/29/24 1035 Kellie Fernanda Performed By: #### L 100.0100 #### [facility] [address] [place], [address] Emergency Department Summary on 06-29-2024 Emergency Department Summary [facility] Medical Records Department [address] [place] [address] Emergency Department Summary 06/29/24 MR#: [id number] Acct: [id number] Name: ORTIZ MASON Rep #: [id number] : 1970 54 From: Kenny Kaye MD [...] back, one of the surgeons was in [place] she states, but she does not actively follow with any back specialists. The reason for the surgeries sounds like it was probably severe arthritis/DDD according to her description. [facility] Medical History (Updated 06/29/24 @ 12:[address] Kenny Kaye MD) NSTEMI (non-ST elevated myocardial infarction) Cardiac arrest COVID-19 Brain aneurysm Chronic pain Rheumatoid arthritis Kidney stones Kidney disease GERD (gastroesophageal reflux disease) Former smoker Sleep apnea Asthma Migraines Seizures Home Medications ???Medication ???Instructions ???Recorded ???Last Taken ???Type icmkgmbl-wujp-wunn 8 mg-folic 400 1 tab PO DAILY [...] Lumbar Spine (more content not included)... Normal [facility] Lumbar Spine 2 or 3 Viewson 06-29-2024 Lumbar Spine 2 or 3 Views [facility] Imaging Services [address] [place], [place] [address] Lumbar Spine 2 or 3 Views MR#: [id number] Acct: [id number] Name: ORTIZ MASON Rep #: [id number] : 1970 F 54 From: Joe rodrigues MD PCP: Dr. Amandeep Loredo, Status: REG ER Study: Lumbar Spine 2 or 3 Views Date of Exam: Exam# [id number] Ordering Dr: [place] [id number] INDICATION: pain EXAMINATION/TECHNIQUE: X-RAY - XR Spine [...] Kenny Kaye MD; Dr. Amandeep Loredo DO Bindery Leadperson: Signed [address] 06-06-2024 36 LVM for patient to c all and schedule appointment [place] [address]on 06-02-2024 36 Patient is known to Dr. Meri jay to schedule with PA for GNS interrogation if she is comfortable. Otherwise will have to wait for OV with Dr. Nesha Rodriguez. Normal [facility] 36 Patient LVM stating that she had a gastric stimualtor put in a long time ago. Patient states that she is sick all the time (nausea) and does not think stimulator is working. Please advise. No other complaints [facility] Elbow min 3 Viewson 05-11-20 24 Elbow min 3 Views [facility] Imaging Services [address] [place] [address] Elbow min 3 Views MR#: [id number] Acct: [id number] Name: ORTIZ MASON Rep #: [id number] : 1970 F 54 From: Kunal Rodriguez MD PCP: Dr. Amandeep Loredo, Status: PRE ER Study: Elbow min 3 Views Date of Exam: 05/11/24 Exam# [id number] Ordering Dr: [place] [id number] INDICATION: pain, truama EXAMINATION/TECHNIQUE: X-RAY - LEFT XR Elbow Min 3 Views COMPARISON: None. FINDINGS: SOFT TISSUES: Unremarkable. BONES/JOINTS: No fracture or dislocation. No significant degenerative changes. No erosive changes. RAD/Elbow min 3 Views IMPRESSION: No fracture or dislocation. Electronically Signed: Kunal Rodriguez DO at 22:43 EDT , CC: Dr. Mattie Jeffrey DO; Dr. Amandeep Loredo DO Bindery Leadperson: Signed Normal [facility] Emergency Department Summary on 05-11-2024 Emergency Department Summary [facility] Medical Records Department [address] [place] [address] Emergency Department Summary 05/11/24 MR#: [id number] Acct: [id number] Name: ORTIZ MASON Rep #: [id number] : 1970 54 From: Mattie Jeffrey DO PCP: Dr. Amnadeep Loredo DO Status:DEP ER Location: ED HPI History of Present Illness Chief Complaint: Fall Informant: patient Narrative Narrative: Patient is a 54-year-old female with history of seizures, gastroparesis, proximal atrial fibrillation, migraines and C. difficile colitis (not on any blood thinners) presenting for evaluation after fall. Patient was going down a flight of stairs. She [place] when she slipped [...] other complaints or concerns at this time. [facility] Medical History NSTEMI (non-ST elevated myocardial infarction) Cardiac arrest COVID-19 Brain aneurysm Chronic pain Rheumatoid arthritis Kidney stones Kidney disease GERD (gastroesophageal reflux disease) Former smoker Sleep apnea Asthma Migraines Seizures Home Medications ???Medication ???Instructions ???Recorded ???Last Taken ???Type utiuvnxj-ajhz-mgan 8 mg-folic 400 1 tab PO DAILY [...] over th (more content not included)... Normal [facility] Hand Min 3 Viewson 4 Hand Min 3 Views [facility] Imaging Services [address] [place] [id number] Hand Min 3 Views MR#: [id number] Acct: [id number] Name: ORTIZ MASON Rep #: [id number] : 1970 F 54 From: Kunal Rodriguez MD PCP: Dr. Amandeep Loredo DO Status: PRE ER Study: Hand Min 3 Views Date of Exam: 05/11/24 Exam# [id number] Ordering Dr: [place] [id number] INDICATION: Injury/Pain EXAMINATION/TECHNIQUE: X-RAY - LEFT XR Hand Min 3 Views COMPARISON: 06/28/2022. FINDINGS: SOFT TISSUES: Unremarkable. BONES/JOINTS: No fracture or dislocation. No significant degenerative changes. No erosive changes. RAD/Hand Min 3 Views IMPRESSION: No fracture or dislocation. Electronically Signed: Kunal Rodriguez DO at 22:48 EDT , CC: Dr. Mattie Jeffrey DO; Dr. Amandeep Loredo DO Bindery Leadperson: Signed Normal [facility] Lumbar Spine 2 or 3 Viewson 05-11-2024 Lumbar Spine 2 or 3 Views [facility] Imaging Services [address] [place] [address] [id number] Lumbar Spine 2 or 3 Views MR#: [id number] Acct: [id number] Name: ORTIZ MASON Rep #: [id number] : 1970 F 54 From: Kunal Rodriguez MD PCP: Dr. Amandeep Loredo DO Status: PRE ER Study: Lumbar Spine 2 or 3 Views Date of Exam: Exam# [id number] Ordering Dr: [place] [id number] INDICATION: Injury/Pain EXAMINATION/TECHNIQUE: X-RAY - XR Spine [...] Mattie Jeffrey DO; Dr. Amandeep Loredo DO Bindery Leadperson: Signed Normal [facility] Pelvis 1 or 2 Viewson 2023 Pelvis 1 or 2 Views [facility] Imaging Services [address] [place], [place] [id number] Pelvis 1 or 2 Views MR#: [id number] Acct: [id number] Name: ORTIZ MASON Rep #: [id number] : 1970 F 54 From: Kunal Rodriguez MD PCP: Dr. Amandeep Loredo DO Status: PRE ER Study: Pelvis 1 or 2 Views Date of Exam: 05/11/24 Exam# [id number] Ordering Dr: [place] [id number] INDICATION: Injury/Pain EXAMINATION/TECHNIQUE: X-RAY - XR Pelvis [...] Mattie Jeffrey DO; Dr. Amandeep Loredo DO Bindery Leadperson: Signed Normal [facility] Wrist min 3 Viewson 05-11-20 Wrist min 3 Views [facility] Imaging Services [address] [place], [place] [id number] Wrist min 3 Views MR#: [id number] Acct: [id number] Name: ORTIZ MASON Rep #: [id number] : 1970 F 54 From: Kunal Rodriguez MD PCP: Dr. Amandeep Loredo DO Status: PRE ER Study: Wrist min 3 Views Date of Exam: 05/11/24 Exam# [id number] Ordering Dr: [place] [id number] INDICATION: Injury/Pain EXAMINATION/TECHNIQUE: X-RAY - LEFT XR Wrist Min 3 Views COMPARISON: None. FINDINGS: SOFT TISSUES: Unremarkable. BONES/JOINTS: No fracture or dislocation. No significant degenerative changes. No erosive changes. RAD/Wrist min 3 Views IMPRESSION: No fracture or dislocation. Electronically Signed: Kunal Rodriguez DO at 22:49 EDT , CC: Dr. Mattie Jeffrey DO; Dr. Amandeep Loredo DO Bindery Leadperson: Signed Normal [facility] Telephone Encounteron 2023 Auto Electrical Technician Authentication Interface Message Text Situation: Patient calling [...] been seen at since 2016. Assessment: See basketball referee. Recommendation: Triage recommends pt be seen within [...] pain, unable to do any normal activities 10. 8. OTHER SYMPTOMS: Do you have any other symptoms? (e.g., fever) No. 9. : Is there any chance you are ? When was your last menstrual period? N/A Protocols used: Rash or Redness - Bawbfgdyj-H-AI Normal [facility] Absolute lymphocyte countOrd ered By: Franki Flynn on 12-01-2023 Lymphocytes Auto (Unsp spec) [#/Vol] 2.28 10*3/uL 0.83-4.51 [facility] Automated lymphocyte count a s percentage of total leukocytesOrdered By: Franki Flynn on 12-01-2023 Lymphocytes/100 WBC Auto (Unsp spec) 15.9 % 19-41 [facility] Basophil percentageOrdered B y: Franki Flynn on 12-01-2023 Basophils/100 WBC (Bld) 0.4 % 0-1 [facility] Bilirubin [Mass/Vol] 0.60 mg/dL 0.20-1.00 [facility] Comment on above: For patients on eltr ombopag therapy, use of Dimension [place] TBIL is not recommended. Chloride [Moles/Vol] 102 mmol/L 98-107 [facility] Eosinophils/100 WBC (Bld) 0.1 % 0-5 [facility] Glucose [Mass/Vol] 117 mg/dL 74-106 [facility] Comment on above: Fasting Glucose resu lt from 100 to 125 mg/dL suggests IMPAIRED HOMEOSTASIS per A.D.A. criteria. Hemoglobin (Bld) [Mass/Vol] 15.7 g/dL 12.0-15.0 [facility] Monocytes/100 WBC (Bld) 6.4 % 0-10 [facility] Neutrophils (Bld) [#/Vol] 11.0 10*3/uL 2.0-7.7 [facility] Neutrophils/100 WBC (Bld) 76.8 % 47-70 [facility] Potassium [Moles/Vol] 3.0 mmol/L 3.5-5.1 [facility] Protein [Mass/Vol] 7.7 g/dL 6.4-8.2 [facility] Sodium [Moles/Vol] 141 mmol/L 136-145 [facility] WBC (Bld) [#/Vol] 14.3 10*3/uL 4.4-11.0 [facility] Determination of erythrocyte mean corpuscular volume (MCV)Ordered By: Franki Flynn on 12-01-2023 MCV (RBC) [Entitic vol] 93.7 fL 81-99 [facility] Direct bilirubinOrdered By: Franki Flynn on 12-01-2023 Bilirubin.direct [Mass/Vol] 0.13 mg/dL 0.00-0.30 [facility] Erythrocyte distribution wid th ratioOrdered By: Franki Flynn on 12-01-2023 Erythrocyte distribution width (RBC) [Ratio] 12.3 % 11.6-14.6 [facility] Erythrocyte distribution wid th standard deviationOrdered By: Franki Flynn on 12-01-2023 Erythrocyte distribution width (RBC) [Entitic vol] 42.5 fL 35.1-43.9 [facility] Hematocrit Auto (Bld) [Volum e fraction]Ordered By: Franki Flynn on 12-01-2023 Hematocrit (Bld) [Volume fraction] 47.5 % 37-47 [facility] Immature granulocytes/100 WB C Auto (Bld)Ordered By: Franki Flynn on 12-01-2023 Immature granulocytes/100 WBC (Bld) 0.400 % 0.0-0.9 [facility] Comment on above: IG% - Immature Granu locytes (promyelocytes, myelocytes and metamyelocytes) > 1% indicates that a LEFT SHIFT is Present. Laboratory - Chemistry and C hemistry - challengeOrdered By: Franki Flynn on 12-01-2023 ALP [Catalytic activity/Vol] 152 U/L 45-117 [facility] ALT [Catalytic activity/Vol] 17 U/L 13-56 [facility] CO2 [Moles/Vol] 30.0 mmol/L 21.0-32.0 [facility] Globulin (S) [Mass/Vol] 3.7 g/dL 2.2-4.2 [facility] Lipase [Catalytic activity/Vol] 20 U/L 13-75 [facility] Comment on above: Please note:LIPASE r evised reference range effective 22. New Lipase methodology. Expected to produce lower values than the previous assay method. NEW Reference Range: 13 - 75 U/L Urea nitrogen/Creatinine [Mass ratio] 16.1 mg/mg 10-20 [facility] Laboratory - Hematology and Cell countsOrdered By: Franki Flynn on 12-01-2023 MCH (RBC) [Entitic mass] 31.0 pg 27.0-32.0 [facility] MCHC (RBC) [Mass/Vol] 33.1 g/dL 32-36 [facility] Nucleated RBC/100 WBC (Bld) [Ratio] 0 % 0-5 [facility] Platelet mean volume (Bld) [Entitic vol] 9.6 fL 6.2-12.0 [facility] Platelets (Bld) [#/Vol] 345 10*3/uL 150-450 [facility] No Panel InformationOrdered By: Franki Flynn on 12-01-2023 Estimated Creatinine Clearance Calc 96.45 ml/min [facility] Estimated GFR (MDRD) Amer 104 mL/min >60 [facility] Comment on above: GFR Calc Estimated GFR (MDRD) Non-Af Amer 86 mL/min >60 [facility] Comment on above: Non- GFR Calc RBC Auto (Bld) [#/Vol]Ordere d By: Franki Flynn on 12-01-2023 RBC (Bld) [#/Vol] 5.07 10*6/uL 4.2-5.4 [facility] Serum or plasma calcium tania urement (mass/volume)Ordered By: Franki Flynn on 12-01-2023 Calcium [Mass/Vol] 9.7 mg/dL 8.5-10.1 [facility] Serum or plasma creatinine m easurement (mass/volume)Ordered By: Franki Flynn on 12-01-2023 Creatinine [Mass/Vol] 0.74 mg/dL 0.55-1.02 [facility] Comment on above: The validity of the calculated GFR & GFRAA in patients over 70 years has not been determined. Clinical correlation is essential. Serum or plasma urea nitroge n measurement (mass/volume)Ordered By: Franki Flynn on 12-01-2023 Urea nitrogen [Mass/Vol] 12 mg/dL 7-18 [facility] Thin prep Papanicolaou smear with manual screeningOrdered By: Franki Flynn on 12-01-2023 Thin prep Papanicolaou smear with manual screening 4.0 g/dL 3.2-5.0 [facility] Thin prep Papanicolaou smear with manual screening 16 U/L 15-37 [facility] Thin prep Papanicolaou smear with manual screening 9 5-15 [facility] Absolute lymphocyte countOrd ered By: Narciso Baron on 10-07-2023 Lymphocytes Auto (Unsp spec) [#/Vol] 2.85 10*3/uL 0.83-4.51 [facility] Automated lymphocyte count a s percentage of total leukocytesOrdered By: Narciso Baron on 10-07-2023 Lymphocytes/100 WBC Auto (Unsp spec) 37.3 % 19-41 [facility] Basophil percentageOrdered B y: Narciso Baron on 10-07-2023 Basophils/100 WBC (Bld) 0.9 % 0-1 [facility] Bilirubin [Mass/Vol] 0.10 mg/dL 0.20-1.00 [facility] Comment on above: For patients on eltr ombopag therapy, use of Dimension [place] TBIL is not recommended. Chloride [Moles/Vol] 111 mmol/L 98-107 [facility] Eosinophils/100 WBC (Bld) 1.3 % 0-5 [facility] Glucose [Mass/Vol] 114 mg/dL 74-106 [facility] Comment on above: Fasting Glucose resu lt from 100 to 125 mg/dL suggests IMPAIRED HOMEOSTASIS per A.D.A. criteria. Hemoglobin (Bld) [Mass/Vol] 15.7 g/dL 12.0-15.0 [facility] Monocytes/100 WBC (Bld) 6.3 % 0-10 [facility] Neutrophils (Bld) [#/Vol] 4.1 10*3/uL 2.0-7.7 [facility] Neutrophils/100 WBC (Bld) 53.8 % 47-70 [facility] Potassium [Moles/Vol] 3.8 mmol/L 3.5-5.1 [facility] Protein [Mass/Vol] 7.1 g/dL 6.4-8.2 [facility] Sodium [Moles/Vol] 142 mmol/L 136-145 [facility] WBC (Bld) [#/Vol] 7.6 10*3/uL 4.4-11.0 [facility] Blood manual differential co mment interpretation (narrative result)Ordered By: Narciso Baron on 10-07-2023 Manual differential comment Albert (Bld) [Interp] SCANNED [facility] Determination of erythrocyte mean corpuscular volume (MCV)Ordered By: Narciso Baron on 10-07-2023 MCV (RBC) [Entitic vol] 95.2 fL 81-99 [facility] Erythrocyte distribution wid th ratioOrdered By: Narciso Baron on 10-07-2023 Erythrocyte distribution width (RBC) [Ratio] 12.9 % 11.6-14.6 [facility] Erythrocyte distribution wid th standard deviationOrdered By: Narciso Baron on 10-07-2023 Erythrocyte distribution width (RBC) [Entitic vol] 45.2 fL 35.1-43.9 [facility] Hematocrit Auto (Bld) [Volum e fraction]Ordered By: Narciso Baron on 10-07-2023 Hematocrit (Bld) [Volume fraction] 48.0 % 37-47 [facility] Immature granulocytes/100 WB C Auto (Bld)Ordered By: Narciso Baron on 10-07-2023 Immature granulocytes/100 WBC (Bld) 0.400 % 0.0-0.9 [facility] Comment on above: IG% - Immature Granu locytes (promyelocytes, myelocytes and metamyelocytes) > 1% indicates that a LEFT SHIFT is Present. Laboratory - Chemistry and C hemistry - challengeOrdered By: Narciso Baron on 10-07-2023 Albumin/Globulin [Mass ratio] 1.2 {ratio} 0.9-2.4 [facility] ALP [Catalytic activity/Vol] 183 U/L 45-117 [facility] ALT [Catalytic activity/Vol] 16 U/L 13-56 [facility] CO2 [Moles/Vol] 25.0 mmol/L 21.0-32.0 [facility] Globulin (S) [Mass/Vol] 3.3 g/dL 2.2-4.2 [facility] Urea nitrogen/Creatinine [Mass ratio] 10.5 mg/mg 10-20 [facility] Laboratory - Hematology and Cell countsOrdered By: Narciso Baron on 10-07-2023 MCH (RBC) [Entitic mass] 31.2 pg 27.0-32.0 [facility] MCHC (RBC) [Mass/Vol] 32.7 g/dL 32-36 [facility] Nucleated RBC/100 WBC (Bld) [Ratio] 0 % 0-5 [facility] Platelet mean volume (Bld) [Entitic vol] 10.0 fL 6.2-12.0 [facility] Platelets (Bld) [#/Vol] 301 10*3/uL 150-450 [facility] No Panel InformationOrdered By: Narciso Baron on 10-07-2023 Estimated Creatinine Clearance Calc 106.59 ml/min [facility] Estimated GFR (MDRD) Amer 118 mL/min >60 [facility] Comment on above: GFR Calc Estimated GFR (MDRD) Non-Af Amer 98 mL/min >60 [facility] Comment on above: Non- GFR Calc RBC Auto (Bld) [#/Vol]Ordere d By: Narciso Baron on 10-07-2023 RBC (Bld) [#/Vol] 5.04 10*6/uL 4.2-5.4 [facility] Serum or plasma calcium tania urement (mass/volume)Ordered By: Narciso Baron on 10-07-2023 Calcium [Mass/Vol] 9.0 mg/dL 8.5-10.1 [facility] Serum or plasma creatinine m easurement (mass/volume)Ordered By: Narciso Baron on 10-07-2023 Creatinine [Mass/Vol] 0.67 mg/dL 0.55-1.02 [facility] Comment on above: The validity of the calculated GFR & GFRAA in patients over 70 years has not been determined. Clinical correlation is essential. Serum or plasma urea nitroge n measurement (mass/volume)Ordered By: Narciso Baron on 10-07-2023 Urea nitrogen [Mass/Vol] 7 mg/dL 7-18 [facility] Thin prep Papanicolaou smear with manual screeningOrdered By: Narciso Baron on 10-07-2023 Thin prep Papanicolaou smear with manual screening 3.8 g/dL 3.2-5.0 [facility] Thin prep Papanicolaou smear with manual screening 15 U/L 15-37 [facility] Thin prep Papanicolaou smear with manual screening 6 5-15 [facility] No Panel Informationon 07-06 Bismark Mott DO 07/06/2023 4:20 PM [facility] Neurology Lab EMG/NCS report: Patient: Ortiz [...] for this study were [facility] reference values. This dictation was done by using the [employer]ard[employer] dictation system. It has been proofread but still may contain unrecognized voice recognition errors. [employer] Maintenance Assistant [facility] CT HEAD OR BRAIN W/O MOLINA Stephens 03-06-2023 CT HEAD OR BRAIN W/O CONTRAST [...] 03/06/2023 12:14:25 AM Ordering Provider: BELINDA COVARRUBIAS [facility] (OR) CT SPINE CERVICAL W/O KING Prado 03-06-2023 [...] by: Alejandro Mercer Preliminary Report By: Beverly Yates Electronically signed By Alejandro Mercer Dictated Date: 03/06/2023 12:17:36 AM Prelim Date: 03/06/2023 12:28:40 AM Sign Date: 03/06/2023 12:33:41 AM Ordering Provider: BELINDA [facility] (OR) XR CLAVICLE RIGHTon -14-20 23 XR CLAVICLE RIGHT ORIGINAL EXAMINATION: 2 [...] Date: 03/06/2023 12:34:46 AM Ordering Provider: BELINDA [facility] (OR) XR SHOULDER MINIMUM 2 VIEWS RIGHTon 03-06-2023 [...] 03/06/2023 12:35:36 AM Ordering Provider: BELINDA COVARRUBIAS [facility] (OR) CBC W Auto Differential pane l (Bld)Ordered By: Rudy Franco on 11-27-2022 Basophils (Bld) [#/Vol] 0.1 10*3/uL 0.0 - 0.2 10*3/uL [facility] Basophils/100 WBC (Bld) 1.2 % 0.0 - 2.0 % [facility] Eosinophils (Bld) [#/Vol] 0.2 10*3/uL 0.0 - 0.5 10*3/uL [facility] Eosinophils/100 WBC (Bld) 2.4 % 1.0 - 6.0 % [facility] Erythrocyte distribution width (RBC) [Ratio] 13.7 % 11.5 - 14.5 % [facility] Hematocrit (Bld) [Volume fraction] 36.4 % 35.0 - 47.0 % [facility] Hemoglobin (Bld) [Mass/Vol] 12.4 g/dL 11.7 - 16.0 g/dL [facility] Interpretation and review of laboratory results Abnormal [facility] Lymphocytes (Bld) [#/Vol] 3.0 10*3/uL 1.0 - 4.3 10*3/uL [facility] Lymphocytes/100 WBC (Bld) 42.5 % High 20.0 - 40.0 % [facility] MCH (RBC) [Entitic mass] 32.0 pg 26.0 - 34.0 pg [facility] MCHC (RBC) [Mass/Vol] 34.0 % 32.0 - 36.0 % [facility] MCV (RBC) [Entitic vol] 94.0 fL 80.0 - 98.0 fL [facility] Monocytes (Bld) [#/Vol] 0.6 10*3/uL 0.0 - 0.8 10*3/uL [facility] Monocytes/100 WBC (Bld) 8.2 % 2.0 - 10.0 % [facility] Neutrophils (Bld) [#/Vol] 3.2 10*3/uL 1.8 - 7.0 10*3/uL [facility] Neutrophils/100 WBC (Bld) 45.7 % 40.0 - 80.0 % [facility] Nucleated RBC/100 WBC (Bld) [Ratio] 0.2 % [facility] Platelet mean volume (Bld) [Entitic vol] 7.4 fL 7.4 - 12.4 fL [facility] Platelets (Bld) [#/Vol] 287 10*3/uL 140 - 440 10*3/uL [facility] RBC (Bld) [#/Vol] 3.87 10*6/uL 3.8 - 5.20 10*6/uL [facility] WBC (Bld) [#/Vol] 7.0 10*3/uL 3.6 - 10.7 10*3/uL [facility] Comprehensive metabolic 1998 panelon 11-27-2022 Albumin [Mass/Vol] 3.5 g/dL 3.5 - 5.0 g/dL [facility] ALP [Catalytic activity/Vol] 124 U/L 38 - 126 U/L [facility] ALT [Catalytic activity/Vol] 17 U/L 0 - 34 U/L [facility] Anion gap [Moles/Vol] 8 mmol/L 3 - 13 mmol/L [facility] AST [Catalytic activity/Vol] 37 U/L 15 - 46 U/L [facility] Bilirubin [Mass/Vol] 0.6 mg/dL 0.2 - 1 .3 mg/dL [facility] Calcium [Mass/Vol] 8.4 mg/dL 8.4 - 10. 4 mg/dL [facility] Chloride [Moles/Vol] 109 mmol/L High 98 - 10 7 mmol/L [facility] CO2 [Moles/Vol] 23 mmol/L 22 - 30 mmol/L [facility] Creatinine [Mass/Vol] 0.61 mg/dL 0.52 - 1.04 mg/dL [facility] GFR/1.73 sq M.predicted MDRD (S/P/Bld) [Vol rate/Area] - PINF [facility] Comment on above: Calculation based on the Chronic Kidney Disease Epidemiology Collaboration (CKD-EPI) equation refit without adjustment for race Glucose [Mass/Vol] 99 mg/dL 70 - 100 mg/dL [facility] Interpretation and review of laboratory results Abnormal [facility] Potassium [Moles/Vol] 3.8 mmol/L 3.5 - 5.1 mmol/L [facility] Maintenance Assistant Protein [Mass/Vol] 6.1 g/dL Low 6.3 - 8.2 g/dL [facility] Sodium [Moles/Vol] 140 mmol/L 135 - 145 mmol/L [facility] Urea nitrogen [Mass/Vol] 16 mg/dL 7 - 17 mg/dL [facility] Slightly Hemolyzed. Interpret K+, ALKP, AST with caution. [facility] CBC W Auto Differential pane l (Bld)Ordered By: Lesly Singh on 11-26-2022 Basophils (Bld) [#/Vol] 0.0 10*3/uL 0.0 - 0.2 10*3/uL [facility] Basophils/100 WBC (Bld) 0.7 % 0.0 - 2.0 % [facility] Eosinophils (Bld) [#/Vol] 0.0 10*3/uL 0.0 - 0.5 10*3/uL [facility] Eosinophils/100 WBC (Bld) 0.3 % Low 1.0 - 6.0 % [facility] Erythrocyte distribution width (RBC) [Ratio] 13.5 % 11.5 - 14.5 % [facility] Hematocrit (Bld) [Volume fraction] 39.4 % 35.0 - 47.0 % [facility] Hemoglobin (Bld) [Mass/Vol] 12.7 g/dL 11.7 - 16.0 g/dL [facility] Interpretation and review of laboratory results Abnormal [facility] Lymphocytes (Bld) [#/Vol] 1.9 10*3/uL 1.0 - 4.3 10*3/uL [facility] Lymphocytes/100 WBC (Bld) 25.7 % 20.0 - 40.0 % [facility] MCH (RBC) [Entitic mass] 30.4 pg 26.0 - 34.0 pg [facility] MCHC (RBC) [Mass/Vol] 32.3 % 32.0 - 36.0 % [facility] MCV (RBC) [Entitic vol] 94.4 fL 80.0 - 98.0 fL [facility] Monocytes (Bld) [#/Vol] 0.7 10*3/uL 0.0 - 0.8 10*3/uL [facility] Monocytes/100 WBC (Bld) 9.0 % 2.0 - 10.0 % [facility] Neutrophils (Bld) [#/Vol] 4.8 10*3/uL 1.8 - 7.0 10*3/uL [facility] Neutrophils/100 WBC (Bld) 64.3 % 40.0 - 80.0 % [facility] Nucleated RBC/100 WBC (Bld) [Ratio] 0.0 % [facility] Platelet mean volume (Bld) [Entitic vol] 7.1 fL Low 7.4 - 12.4 fL [facility] Platelets (Bld) [#/Vol] 322 10*3/uL 140 - 440 10*3/uL [facility] RBC (Bld) [#/Vol] 4.18 10*6/uL 3.8 - 5.20 10*6/uL [facility] WBC (Bld) [#/Vol] 7.4 10*3/uL 3.6 - 10.7 10*3/uL [facility] Comprehensive metabolic 1998 panelon 11-26-2022 Albumin [Mass/Vol] 3.5 g/dL 3.5 - 5.0 g/dL [facility] ALP [Catalytic activity/Vol] 132 U/L High 38 - 126 U/L [facility] ALT [Catalytic activity/Vol] 14 U/L 0 - 34 U/L [facility] Anion gap [Moles/Vol] 6 mmol/L 3 - 13 mmol/L [facility] AST [Catalytic activity/Vol] 30 U/L 15 - 46 U/L [facility] Bilirubin [Mass/Vol] 0.5 mg/dL 0.2 - 1 .3 mg/dL [facility] Calcium [Mass/Vol] 8.6 mg/dL 8.4 - 10. 4 mg/dL [facility] Chloride [Moles/Vol] 113 mmol/L High 98 - 10 7 mmol/L [facility] CO2 [Moles/Vol] 19 mmol/L Low 22 - 30 mmol/L [facility] Creatinine [Mass/Vol] 0.51 mg/dL Low 0.52 - 1.04 mg/dL [facility] GFR/1.73 sq M.predicted MDRD (S/P/Bld) [Vol rate/Area] - PINF [facility] Comment on above: Calculation based on the Chronic Kidney Disease Epidemiology Collaboration (CKD-EPI) equation refit without adjustment for race Glucose [Mass/Vol] 89 mg/dL 70 - 100 mg/dL [facility] Interpretation and review of laboratory results Abnormal [facility] Potassium [Moles/Vol] 4.0 mmol/L 3.5 - 5.1 mmol/L [facility] Protein [Mass/Vol] 6.2 g/dL Low 6.3 - 8.2 g/dL [facility] Sodium [Moles/Vol] 138 mmol/L 135 - 145 mmol/L [facility] Urea nitrogen [Mass/Vol] 14 mg/dL 7 - 17 mg/dL [facility] HIV 1+2 Ab+HIV1 p24 Ag IA Ql on 11-26-2022 Interpretation and review of laboratory results Normal [facility] Laboratory - Drug toxicology on 11-26-2022 levETIRAcetam [Mass/Vol] ug/mL Low 10 - 40 ug/mL [facility] Comment on above: INTERPRETIVE INFORMA TION: Keppra (Levetiracetam) Therapeutic Range: 10-40 ug/mL Toxic: Not well Established Pharmacokinetics of levetiracetam are affected by renal function. Adverse effects may include somnolence, weakness, headache and vomiting. This levetiracetam (Keppra) immunoassay uses the Notif[employer] reagents, which has known cross-reactivity with the drug brivaracetam (Briviact) and may report inaccurate results. Patients transitioning from levetiracetam to brivaracetam or those who are using both medications should not monitor drug concentrations with the [employer] assay. These patients should be monitored using a validated chromatographic methodology that distinguishes between drugs to determine drug concentrations. Performed By: [facility] [address] [place] [id number] Trimmer Operator Three Knife: Clem Gregg MD, PhD Laboratory - Drug toxicology Ordered By: Dawit Maldonado on 11-26-2022 Amphetamines Ql (U) Negative Negative [facility] Benzodiazepines Ql (U) Negative Negative [facility] Cocaine Ql (U) Positive Negative [facility] Ethanol [Mass/Vol] Negative Negative [facility] Methadone Ql (U) Negative Negative [facility] Opiates Ql (U) Positive Negative [facility] Laboratory - Microbiology an d Antimicrobial susceptibilityon 11-26-2022 HIV 1+2 Ab+HIV1 p24 Ag IA Ql Non-Reactive Nonreactive [facility] Comment on above: The specimen was non -reactive for HIV-1 and HIV-2 antibodies and p24 antigen using an FDA-cleared 4th generation HIV test. Based on this non-reactive screen result, further reflexive testing was not indicated and was, therefore, not performed. Laboratory - Microbiology an d Antimicrobial susceptibilityOrdered By: Ricky Kincaid on 11-26-2022 Reagin Ab RPR Ql (S) Non-Reactive Nonreactive [facility] No Panel Informationon 11-26 Interpretation and review of laboratory results Abnormal [facility] No evidence of deep vein thrombosis in [...] filling and normal phasic and spontaneous flow. Speech Therapist Technician Details A lira scale, color Doppler imaging [...] Dawit Maldonado on 11-26-2022 BARBITURATES Negative Negative [facility] BUPRENORPHINE SCREEN Negative Negative [facility] FENTANYL Positive Negative [facility] OXYCODONE/OXYMORPHONE Positive Negative [facility] PCP Negative Negative [facility] THC Negative Negative [facility] The expected value f or the drugs [...] treatment only. Analysis performed using non-forensic procedures. [facility] Reagin Ab RPR Ql (S)Ordered By: Ricyk Kincaid on 11-26-2022 Interpretation and review of laboratory results Normal [facility] US Heart TransthoracicOrdere d By: Gem Shearer on 11-26-2022 Ao Root Index 1.57 cm/m2 [facility] Work Phone: Aortic Root 3.0 cm [facility] Work Phone: Ascending Aorta 2.5 cm [facility] Work Phone: Ascending Aorta Index 1.31 cm/m2 [facility] Work Phone: E/E' Lateral 5.82 [facility] Work Phone: E/E' Ratio (Averaged) 5.82 [facility] Maintenance Assistant Work Phone: E/E' Septal 5.82 [facility] Work Phone: EF BP 58 % 55 - 100 % [facility] Work Phone: Fractional Shortening 2D 21 % 28 - 44 % [facility] Work Phone: Interpretation and review of laboratory results Abnormal [facility] Maintenance Assistant Work Phone: IVSd 1.0 cm Abnormal 0.6 - 0.9 cm [facility] Maintenance Assistant Work Phone: LA Diameter 3.2 cm [facility] Maintenance Assistant Work Phone: LA Size Index 1.68 cm/m2 [facility] [employer] Work Phone: LA Volume 2C 59 mL Abnormal 22 - 52 mL [facility] Maintenance Assistant Work Phone: LA Volume 4C 31 mL 22 - 52 mL [facility] Maintenance Assistant Work Phone: LA Volume A/L 54 mL [facility] [employer] Work Phone: LA Volume BP 46 mL 22 - 52 mL [facility] Assistant Work Phone: LA Volume Index 2C 31 mL/m2 16 - 34 mL/m2 [facility] Maintenance Assistant Work Phone: LA Volume Index 4C 16 mL/m2 16 - 34 mL/m2 [facility] Assistant Work Phone: LA Volume Index A/L 28 mL/m2 16 - 34 mL/m2 [facility] Work Phone: LA Volume Index BP 24 ml/m2 16 - 34 ml/m2 [facility] Maintenance Assistant Work Phone: LA/AO Root Ratio 1.07 [facility] Work Phone: LV E' Lateral Velocity 11 cm/s [facility] Maintenance Assistant Work Phone: LV E' Septal Velocity 11 cm/s [facility] Maintenance Assistant Work Phone: LV EDV A2C 117 mL [facility] Maintenance Assistant Work Phone: LV EDV A4C 85 mL [facility] Maintenance Assistant Work Phone: LV EDV BP 108 mL Abnormal 56 - 104 mL [facility] Work Phone: [phone] LV EDV Index A2C 61 mL/m2 [facility] Work Phone: [phone] LV EDV Index A4C 45 mL/m2 [facility] Work Phone: [phone] LV EDV Index BP 57 mL/m2 [facility] Work Phone: [phone] LV Ejection Fraction A2C 62 % [facility] Work Phone: [phone] LV Ejection Fraction A4C 53 % [facility] Work Phone: [phone] LV ESV A2C 45 mL [facility] Work Phone: [phone] LV ESV A4C 40 mL [facility] Work Phone: [phone] LV ESV BP 45 mL 19 - 49 mL [facility] Work Phone: [phone] LV ESV Index A2C 24 mL/m2 [facility] Work Phone: [phone] LV ESV Index A4C 21 mL/m2 [facility] Work Phone: [phone] LV ESV Index BP 24 mL/m2 [facility] Work Phone: [phone] LV Mass 2D 158.8 g 67 - 162 g [facility] Work Phone: [phone] LV Mass 2D Index 83.2 g/m2 43 - 95 g/m2 [facility] Work Phone: [phone] LV RWT Ratio 0.38 [facility] Work Phone: [phone] LVIDd 4.8 cm 3.9 - 5.3 cm [facility] Work Phone: [phone] LVIDd Index 2.51 cm/m2 [facility] Work Phone: [phone] LVIDs 3.8 cm [facility] Work Phone: [phone] LVIDs Index 1.99 cm/m2 [facility] Work Phone: [phone] LVOT Area 4.5 cm2 [facility] Work Phone: [phone] LVOT Cardiac Output 3.7 liter/minute [facility] Work Phone: LVOT Diameter 2.4 cm [facility] [employer] Work Phone: [phone] LVOT Mean Gradient 1 mmHg [facility] Maintenance Assistant Work Phone: [phone] LVOT Peak Gradient 2 mmHg [facility] Assistant Work Phone: [phone] LVOT Peak Velocity 0.6 m/s [facility] Assistant Work Phone: [phone] LVOT Stroke Volume Index 31.5 mL/m2 [facility] Assistant Work Phone: [phone] LVOT SV 60.1 ml [facility] Work Phone: [phone] LVOT VTI 13.3 cm [facility] Assistant Work Phone: [phone] LVPWd 0.9 cm 0.6 - 0.9 cm [facility] Assistant Work Phone: [phone] MV A Velocity 0.43 m/s [facility] [employer] Work Phone: [phone] MV E Velocity 0.64 m/s [facility] Work Phone: [phone] MV E Wave Deceleration Time 129.1 ms [facility] Maintenance Assistant Work Phone: [phone] MV E/A 1.49 [facility] [employer] Phone: [phone] RV Basal Dimension 2.9 cm [facility] Maintenance Assistant Work Phone: [phone] RV Longitudinal Dimension 5.8 cm [facility] Assistant Work Phone: [phone] RV Mid Dimension 2.3 cm [facility] Work Phone: [phone] TAPSE 1.4 cm Abnormal 1.7 cm [facility] Maintenance Assistant Work Phone: [phone] [facility] Assistant Work Phone: [phone] Heart Transthoracicon Left Ventricle: Left ventricle [...] [Moles/Vol] 8 mmol/L 3 - 13 mmol/L [facility] Calcium [Mass/Vol] 9.3 mg/dL 8.4 - 10. 4 mg/dL [facility] Maintenance Assistant Chloride [Moles/Vol] 107 mmol/L 98 - 10 7 mmol/L [facility] Maintenance Assistant CO2 [Moles/Vol] 26 mmol/L 22 - 30 mmol/L [facility] Creatinine [Mass/Vol] 0.61 mg/dL 0.52 - 1.04 mg/dL [facility] GFR/1.73 sq M.predicted MDRD (S/P/Bld) [Vol rate/Area] - PINF [facility] Comment on above: Calculation based on the Chronic Kidney Disease Epidemiology Collaboration (CKD-EPI) equation refit without adjustment for race Glucose [Mass/Vol] 108 mg/dL High 70 - 100 mg/dL [facility] Interpretation and review of laboratory results Abnormal [facility] Potassium [Moles/Vol] 3.7 mmol/L 3.5 - 5.1 mmol/L [facility] Sodium [Moles/Vol] 141 mmol/L 135 - 145 mmol/L [facility] Urea nitrogen [Mass/Vol] 14 mg/dL 7 - 17 mg/dL [facility] CBC W Auto Differential pane l (Bld)Ordered By: Janene Rubio on 11-25-2022 Basophils (Bld) [#/Vol] 0.0 10*3/uL 0.0 - 0.2 10*3/uL [facility] Basophils/100 WBC (Bld) 0.7 % 0.0 - 2.0 % [facility] Eosinophils (Bld) [#/Vol] 0.1 10*3/uL 0.0 - 0.5 10*3/uL [facility] Eosinophils/100 WBC (Bld) 1.6 % 1.0 - 6.0 % [facility] Erythrocyte distribution width (RBC) [Ratio] 13.8 % 11.5 - 14.5 % [facility] Hematocrit (Bld) [Volume fraction] 47.5 % High 35.0 - 47.0 % [facility] Hemoglobin (Bld) [Mass/Vol] 15.7 g/dL 11.7 - 16.0 g/dL [facility] Interpretation and review of laboratory results Abnormal [facility] Lymphocytes (Bld) [#/Vol] 1.1 10*3/uL 1.0 - 4.3 10*3/uL [facility] Lymphocytes/100 WBC (Bld) 16.8 % Low 20.0 - 40.0 % [facility] MCH (RBC) [Entitic mass] 31.0 pg 26.0 - 34.0 pg [facility] MCHC (RBC) [Mass/Vol] 33.1 % 32.0 - 36.0 % [facility] MCV (RBC) [Entitic vol] 93.8 fL 80.0 - 98.0 fL [facility] Monocytes (Bld) [#/Vol] 0.5 10*3/uL 0.0 - 0.8 10*3/uL [facility] Monocytes/100 WBC (Bld) 7.8 % 2.0 - 10.0 % [facility] Neutrophils (Bld) [#/Vol] 4.7 10*3/uL 1.8 - 7.0 10*3/uL [facility] Neutrophils/100 WBC (Bld) 73.1 % 40.0 - 80.0 % [facility] Nucleated RBC/100 WBC (Bld) [Ratio] 0.2 % [facility] Platelet mean volume (Bld) [Entitic vol] 7.4 fL 7.4 - 12.4 fL [facility] Platelets (Bld) [#/Vol] 328 10*3/uL 140 - 440 10*3/uL [facility] RBC (Bld) [#/Vol] 5.06 10*6/uL 3.8 - 5.20 10*6/uL [facility] Assistant WBC (Bld) [#/Vol] 6.5 10*3/uL 3.6 - 10.7 10*3/uL [facility] CT Abdomen and Pelvis W cont rast Burke 11-25-2022 [facility] 1970 [id number] Exam Date/Time: 11/25/2022 17:49 Procedure: CT ABDOMEN [...] L3-L5 laminectomies. No acute osseous findings. [facility] Agustina Zarate M D - [...] Electronically Signed Date/Time: 11/25/2022 6:06 PM EDT [facility] CT Head WO contraston 2022 No acute intracranial abnormalities. Report Dictated on Electronically Signed By: Agustina Zarate Electronically Signed Date/Time: 11/25/2022 5:52 PM EDT [facility] 1970 [id number] Exam Date/Time: 11/25/2022 17:49 Procedure: CT HEAD [...] in the sinuses. No acute osseous abnormalities. [facility] [employer] [facility] Agustina Zarate M D - 11/25/2022 [facility] Name: [facility] : 1970 [id number] Exam Date/Time: 11/25/2022 17:49 Procedure: CT HEAD [...] Electronically Signed Date/Time: 11/25/2022 5:[address] [facility] [address] Head WO contrastOrdered B y: Agustina Zarate on 11-25-2022 [employer] Work Phone: CTA Chest vessels WO and [...] L3-L5 laminectomies. No acute osseous findings. [facility] Agustina Zarate M D - 11/25/2022 Patient Name: ORTIZ MASON : 1970 [facility]#: [id number] Exam Date/Time: 11/25/2022 17:49 Procedure: CT CHEST [...] Electronically Signed Date/Time: 11/25/2022 6:06 PM EDT [employer] Fibrin D-dimer FEU (PPP) [Ma ss/Vol]on 11-25-2022 Interpretation and review of laboratory results Abnormal [employer] D-Dimer values of <0.50 mg/L FEU can be used in combination with a pre-test probability model (e.g. Well's) to exclude pulmonary embolism (PE) disease, as well as an aid in the diagnosis of deep vein thrombosis (DVT). [facility] Hepatic function 2000 panelo n 11-25-2022 Albumin [Mass/Vol] 4.4 g/dL 3.5 - 5.0 g/dL [facility] ALP [Catalytic activity/Vol] 197 U/L High 38 - 126 U/L [facility] ALT [Catalytic activity/Vol] 19 U/L 0 - 34 U/L [facility] AST [Catalytic activity/Vol] 38 U/L 15 - 46 U/L [facility] Bilirubin [Mass/Vol] 0.6 mg/dL 0.2 - 1 .3 mg/dL [facility] Bilirubin.conjugated [Mass/Vol] 0.0 mg/dL 0.0 - 0.3 mg/dL [facility] Interpretation and review of laboratory results Abnormal [facility] Protein [Mass/Vol] 7.7 g/dL 6.3 - 8.2 g/dL [facility] - Chemistry and C hemistry - challengeon 11-25-2022 Cobalamin (Vitamin B12) [Mass/Vol] 642 pg/mL 239 - 931 pg/mL [facility] Folate [Mass/Vol] ng/mL 2.9 - PINF ng/mL [facility] TSH Qn 0.870 m[IU]/L [facility] Prolactin [Mass/Vol] 6.7 ng/mL 2.8 - 2 7.0 ng/mL [facility] HCG.beta subunit Qn Females < 5 mIU/mL [facility] Troponin I.cardiac [Mass/Vol] ng/mL 0.000 - 0.034 ng/mL [facility] Lactate [Moles/Vol] 1.1 mmol/L 0.7 - 2. 0 mmol/L [facility] Laboratory - Coagulationon 0 11-25-2022 Fibrin D-dimer FEU (PPP) [Mass/Vol] 1.15 mg/L High NINF - 0.50 mg/L [facility] No Panel Informationon 11-25 Interpretation and review of laboratory results Normal [facility] 1. No PE identified. PE cannot be evaluated beyond the segmental level due to the limitations above. 2. Mild emphysematous changes in the lungs. No acute cardiopulmonary abnormalities. 3. No acute intra-abdominal abnormalities. Report Dictated on Electronically Signed By: Agustina Elliot Electronically Signed Date/Time: 11/25/2022 6:06 PM EDT [facility] Radiology Study observation (narrative) [facility] Interpretation and review of laboratory results Normal [facility] Values below 35 ng/m L may be of doubtful significance. Recommend send-out testing to rule out macroprolactin to confirm the result. [facility] Values in should double every 2 to [...] or monitor tumors or gestational trophoblastic disease. [facility] Interpretation and review of laboratory results Normal [facility] P [place] 74 degrees [facility] [place] Interval 142 ms [facility] QRS [place] 78 degrees [facility] QRSD Interval 95 ms [facility] QT Interval 362 ms [facility] QTC Interval 484 ms [facility] T Wave [place] 72 degrees [facility] EKG shows sinus tachycardia, normal axis, [...] On 11-25-2022 10:19:18 EDT by Earl Parson [facility] Respiratory pathogens DNA an d RNA panel KRISTEN+probe (Nph)on 11-25-2022 Adenovirus Not detected Not Detected [facility] th B. pertussis DNA KRISTEN+probe Ql (Unsp spec) Not detected Not Detected [facility] Bordetella parapertussis Not detected Not Detected [facility] Chlamydia pneumoniae Not detected Not Detected [facility] Coronavirus 229E Not detected Not Detected [facility] Coronavirus HKU1 Not detected Not Detected [facility] Coronavirus NL63 Not detected Not Detected [facility] Coronavirus OC43 Not detected Not Detected [facility] FLUAV RNA KRISTEN+non-probe Ql (Nph) Not detected Not Detected [facility] FLUBV RNA KRISTEN+non-probe Ql (Nph) Not detected Not Detected [facility] Human Metapneumovirus Not detected Not Detected [facility] Human Rhinovirus/Enterovirus Not detected Not Detected [facility] Interpretation and review of laboratory results Normal [facility] Mycoplasma pneumoniae Not detected Not Detected [facility] Parainfluenza 1 Not detected Not Detected [facility] Parainfluenza 2 Not detected Not Detected [facility] Parainfluenza 3 Not detected Not Detected [facility] Parainfluenza 4 Not detected Not Detected [facility] Respiratory Syncytial Virus Not detected Not Detected [facility] SARS-CoV-2 (COVID-19) RNA KRISTEN+non-probe Ql (Nph) Not detected Not Detected [facility] Methodology: Multipl ex PCR [facility] TSH Qnon 11-25-2022 Interpretation and review of laboratory results Normal [facility] Troponin I.cardiac [Mass/Vol ]on 11-25-2022 Interpretation and review of laboratory results Normal [facility] Patients with high levels of Biotin oral intake (ie >5 mg/day) may have falsely decreased Troponin levels. [facility] Vital signson 11-25-2022 Heart rate 107 /min bpm [facility] XR Chest Single viewon 11-25 Impression: No acute cardiopulmonary process. Report Dictated on Electronically Signed By: Rudy Valero Electronically Signed Date/Time: 11/25/2022 1:23 PM EDT [facility] Patient Name: ORTIZ MASON : [...] hardware plate. Minimal thoracic scoliosis apex rightward. [facility] Rudy Valero MD - 11/25/2022 [...] Electronically Signed Date/Time: 11/25/2022 1:23 PM EDT [facility] Radiology Study observation (narrative) [facility] Chest Single viewOrdered By: Rudy Valero on 11-25-2022 [employer] Maintenance Assistant Work Phone: Absolute lymphocyte countOrd ered By: Alfredito Guerrero on 11-16-2022 Lymphocytes Auto (Unsp spec) [#/Vol] 4.45 10*3/uL 0.83-4.51 [facility] Basophil percentageOrdered B y: Alfredito Guerrero on 11-16-2022 Basophils/100 WBC (Bld) 0.6 % 0-1 [facility] Eosinophils/100 WBC (Bld) 1.1 % 0-5 [facility] Lactate [Moles/Vol] 0.9 mmol/L 0.4-2.0 [facility] Neutrophils (Bld) [#/Vol] 7.7 10*3/uL 2.0-7.7 [facility] Neutrophils/100 WBC (Bld) 54.4 % 47-70 [facility] WBC (Bld) [#/Vol] 14.1 10*3/uL 4.4-11.0 [facility] Blood erythrocytes count (nu mber/volume)Ordered By: Alfredito Guerrero on 11-16-2022 RBC (Bld) [#/Vol] 4.54 10*6/uL 4.2-5.4 [facility] Blood hemoglobin measurement (mass/volume)Ordered By: Alfredito Guerrero on 11-16-2022 Hemoglobin (Bld) [Mass/Vol] 14.0 g/dL 12.0-15.0 [facility] Blood lymphocytes/100 leukoc ytesOrdered By: Alfredito Guerrero on 11-16-2022 Lymphocytes/100 WBC (Bld) 31.6 % 19-41 [facility] Blood monocytes/100 leukocyt esOrdered By: Alfredito Guerrero on 11-16-2022 Monocytes/100 WBC (Bld) 10.2 % 0-10 [facility] Blood platelet mean volumeOr dered By: Alfredito Guerrero on 11-16-2022 Platelet mean volume (Bld) [Entitic vol] 9.5 fL 6.2-12.0 [facility] Determination of erythrocyte mean corpuscular volume (MCV)Ordered By: Alfredito Guerrero on 11-16-2022 MCV (RBC) [Entitic vol] 95.6 fL 81-99 [facility] Hematocrit Auto (Bld) [Volum e fraction]Ordered By: Alfredito Guerrero on 11-16-2022 Hematocrit (Bld) [Volume fraction] 43.4 % 37-47 [facility] Laboratory - Hematology and Cell countsOrdered By: Alfredito Guerrero on 11-16-2022 Erythrocyte distribution width (RBC) [Entitic vol] 46.1 fL 35.1-43.9 [facility] Erythrocyte distribution width (RBC) [Ratio] 13.1 % 11.6-14.6 [facility] Immature granulocytes/100 WBC (Bld) 2.100 % 0.0-0.9 [facility] Comment on above: IG% - Immature Granu locytes (promyelocytes, myelocytes and metamyelocytes) > 1% indicates that a LEFT SHIFT is Present. MCH (RBC) [Entitic mass] 30.8 pg 27.0-32.0 [facility] Nucleated RBC/100 WBC (Bld) [Ratio] 0 % 0-5 [facility] MCHC Auto (RBC) [Mass/Vol]Or dered By: Alfredito Guerrero on 11-16-2022 MCHC (RBC) [Mass/Vol] 32.3 g/dL 32-36 [facility] Platelets bldOrdered By: Tobin Guerrero on 11-16-2022 Platelets (Bld) [#/Vol] 416 10*3/uL 150-450 [facility] Serum or plasma C reactive p rotein measurement (mass/volume)Ordered By: Alfredito Guerrero on 11-16-2022 CRP [Mass/Vol] 7.14 mg/L 0.0-3.0 [facility] Comment on above: C-Reactive Protein ( CRP) provides useful information for thediagnosis, therapy and monitoring of inflammatory processesand associated diseases. For the evaluation of Relative Riskfor Cardiovascular Disease, a High Sensitivity CRP (HSCRP)should be ordered. Basic metabolic 1998 panelon 11-09-2022 Anion gap [Moles/Vol] 7 mmol/L 3 - 13 mmol/L [facility] Calcium [Mass/Vol] 8.9 mg/dL 8.4 - 10. 4 mg/dL [facility] Chloride [Moles/Vol] 108 mmol/L High 98 - 10 7 mmol/L [facility] CO2 [Moles/Vol] 26 mmol/L 22 - 30 mmol/L [facility] Creatinine [Mass/Vol] 0.68 mg/dL 0.52 - 1.04 mg/dL [facility] GFR/1.73 sq M.predicted MDRD (S/P/Bld) [Vol rate/Area] - PINF [facility] Comment on above: Calculation based on the Chronic Kidney Disease Epidemiology Collaboration (CKD-EPI) equation refit without adjustment for race Glucose [Mass/Vol] 93 mg/dL 70 - 100 mg/dL [facility] Interpretation and review of laboratory results Abnormal [facility] Potassium [Moles/Vol] 3.4 mmol/L Low 3.5 - 5.1 mmol/L [facility] Sodium [Moles/Vol] 142 mmol/L 135 - 145 mmol/L [facility] Urea nitrogen [Mass/Vol] 10 mg/dL 7 - 17 mg/dL [facility] - Chemistry and C hemistry - challengeon 11-09-2022 Magnesium [Mass/Vol] 1.9 mg/dL 1.6 - 2 .3 mg/dL [facility] Magnesium [Mass/Vol]on 11-09 Interpretation and review of laboratory results Normal [facility] CBC W Auto Differential pane l (Bld)Ordered By: Mickie Sepulveda on 11-08-2022 Basophils (Bld) [#/Vol] 0.0 10*3/uL 0.0 - 0.2 10*3/uL [facility] Basophils/100 WBC (Bld) 0.3 % 0.0 - 2.0 % [facility] Eosinophils (Bld) [#/Vol] 0.0 10*3/uL 0.0 - 0.5 10*3/uL [facility] Eosinophils/100 WBC (Bld) 0.0 % Low 1.0 - 6.0 % [facility] Erythrocyte distribution width (RBC) [Ratio] 13.7 % 11.5 - 14.5 % [facility] Hematocrit (Bld) [Volume fraction] 37.4 % 35.0 - 47.0 % [facility] Hemoglobin (Bld) [Mass/Vol] 12.6 g/dL 11.7 - 16.0 g/dL [facility] Interpretation and review of laboratory results Abnormal [facility] Lymphocytes (Bld) [#/Vol] 0.7 10*3/uL Low 1.0 - 4.3 10*3/uL [facility] Lymphocytes/100 WBC (Bld) 6.8 % Low 20.0 - 40.0 % [facility] MCH (RBC) [Entitic mass] 31.5 pg 26.0 - 34.0 pg [facility] MCHC (RBC) [Mass/Vol] 33.7 % 32.0 [...] Nucleated RBC/100 WBC (Bld) [Ratio] 0.0 % [facility] Platelet mean volume (Bld) [Entitic vol] 8.8 fL 7.4 - 12.4 fL [facility] Platelets (Bld) [#/Vol] 215 10*3/uL 140 - 440 10*3/uL [facility] RBC (Bld) [#/Vol] 4.02 10*6/uL 3.8 - 5.20 10*6/uL [facility] WBC (Bld) [#/Vol] 11.0 10*3/uL High 3.6 - 10.7 10*3/uL [facility] CBC W Auto Differential pane l (Bld)Ordered By: Rudy Franco on 11-07-2022 Basophils (Bld) [#/Vol] 0.0 10*3/uL 0.0 - 0.2 10*3/uL [facility] Basophils/100 WBC (Bld) 0.1 % 0.0 - 2.0 % [facility] Eosinophils (Bld) [#/Vol] 0.0 10*3/uL 0.0 - 0.5 10*3/uL [facility] Eosinophils/100 WBC (Bld) 0.0 % Low 1.0 - 6.0 % [facility] Erythrocyte distribution width (RBC) [Ratio] 13.7 % 11.5 - 14.5 % [facility] Hematocrit (Bld) [Volume fraction] 41.8 % 35.0 - 47.0 % [facility] Hemoglobin (Bld) [Mass/Vol] 13.4 g/dL 11.7 - 16.0 g/dL [facility] Interpretation and review of laboratory results Abnormal [facility] Lymphocytes (Bld) [#/Vol] 1.5 10*3/uL 1.0 - 4.3 10*3/uL [facility] Lymphocytes/100 WBC (Bld) 9.1 % Low 20.0 - 40.0 % [facility] MCH (RBC) [Entitic mass] 30.7 pg 26.0 - 34.0 pg [facility] MCHC (RBC) [Mass/Vol] 32.0 % 32.0 - 36.0 % [facility] MCV (RBC) [Entitic vol] 95.9 fL 80.0 - 98.0 fL [facility] Monocytes (Bld) [#/Vol] 0.8 10*3/uL 0.0 - 0.8 10*3/uL [facility] Monocytes/100 WBC (Bld) 5.0 % 2.0 - 10.0 % [facility] Neutrophils (Bld) [#/Vol] 14.3 10*3/uL High 1.8 - 7.0 10*3/uL [facility] Neutrophils/100 WBC (Bld) 85.8 % High 40.0 - 80.0 % [facility] Nucleated RBC/100 WBC (Bld) [Ratio] 0.1 % [facility] Platelet mean volume (Bld) [Entitic vol] 8.1 fL 7.4 - 12.4 fL [facility] Platelets (Bld) [#/Vol] 263 10*3/uL 140 - 440 10*3/uL [facility] RBC (Bld) [#/Vol] 4.36 10*6/uL 3.8 - 5.20 10*6/uL [facility] WBC (Bld) [#/Vol] 16.7 10*3/uL High 3.6 - 10.7 10*3/uL [facility] - Chemistry and C hemistry - challengeon 11-07-2022 Potassium [Moles/Vol] 4.3 mmol/L 3.5 - 5.1 mmol/L [facility] Laboratory - Coagulationon 0 11-07-2022 PT Coag (Bld) [Time] 10.6 s 9.0 - 12.0 s [facility] PT Coag (Bld) [Time]on 11-07 INR Coag (PPP) [Relative time] 1.0 {INR} 0.9 - 1.1 [facility] Comment on above: Recommended Anticoag ulant [...] Interpretation and review of laboratory results Normal [facility] Potassium [Moles/Vol]on 10-22 Interpretation and review of laboratory results Normal [facility] CBC W Auto Differential pane l (Bld)Ordered By: Stephania Guzman on 11-06-2022 Basophils (Bld) [#/Vol] 0.1 10*3/uL 0.0 - 0.2 10*3/uL [facility] Basophils/100 WBC (Bld) 1.0 % 0.0 - 2.0 % [facility] Eosinophils (Bld) [#/Vol] 0.1 10*3/uL 0.0 - 0.5 10*3/uL [facility] Eosinophils/100 WBC (Bld) 0.7 % Low 1.0 - 6.0 % [facility] Erythrocyte distribution width (RBC) [Ratio] 13.7 % 11.5 - 14.5 % [facility] Hematocrit (Bld) [Volume fraction] 46.2 % 35.0 - 47.0 % [facility] Hemoglobin (Bld) [Mass/Vol] 15.4 g/dL 11.7 - 16.0 g/dL [facility] Interpretation and review of laboratory results Abnormal [facility] Lymphocytes (Bld) [#/Vol] 2.2 10*3/uL 1.0 - 4.3 10*3/uL [facility] Lymphocytes/100 WBC (Bld) 22.6 % 20.0 - 40.0 % [facility] MCH (RBC) [Entitic mass] 30.9 pg 26.0 - 34.0 pg [facility] MCHC (RBC) [Mass/Vol] 33.2 % 32.0 - 36.0 % [facility] MCV (RBC) [Entitic vol] 92.9 fL 80.0 - 98.0 fL [facility] Monocytes (Bld) [#/Vol] 0.5 10*3/uL 0.0 - 0.8 10*3/uL [facility] Monocytes/100 WBC (Bld) 5.1 % 2.0 - 10.0 % [facility] Neutrophils (Bld) [#/Vol] 7.0 10*3/uL 1.8 - 7.0 10*3/uL [facility] Neutrophils/100 WBC (Bld) 70.6 % 40.0 - 80.0 % [facility] Nucleated RBC/100 WBC (Bld) [Ratio] 0.1 % [facility] Platelet mean volume (Bld) [Entitic vol] 7.9 fL 7.4 - 12.4 fL [facility] Platelets (Bld) [#/Vol] 306 10*3/uL 140 - 440 10*3/uL [facility] RBC (Bld) [#/Vol] 4.98 10*6/uL 3.8 - 5.20 10*6/uL [facility] WBC (Bld) [#/Vol] 9.9 10*3/uL 3.6 - 10.7 10*3/uL [facility] No Panel Informationon 11-06 There is no interpretation needed for this exam. IMAGING There is no interpretation needed for this exam. IMAGING ECG 12 leadon 10-30-2022 [facility] XR Chest 2 Viewson 3 No acute process. Report Dictated on Electronically Signed By: Augustine Pelayo Electronically Signed Date/Time: 10/30/2022 11:16 AM [facility] RADIOLOGY SYSTEM [facility] 1970 [id number] Exam Date/Time: 10/30/2022 09:56 Procedure: XR CHEST 2 VIEWS Ordering Provider: LOREDO EUGENE Reason For Exam: cough PA AND LATERAL CHEST CLINICAL INDICATION: Cough TECHNIQUE: PA and Lateral chest COMPARISON: 09/18/2019 FINDINGS: The cardiomediastinal silhouette appears unchanged from the prior exam. The lungs are clear. There is no sizable pleural effusion. Postsurgical changes in the cervical spine. [facility] Augustine Pelayo MD - 10/30/2022 [facility] Name: [facility] : 1970 [id number] Exam Date/Time: 10/30/2022 09:56 Procedure: XR CHEST [...] Electronically Signed Date/Time: 10/30/2022 11:16 AM EST [facility] Radiology Study observation (narrative) [facility] XR Chest 2 ViewsOrdered By: Augustine Pelayo on 10-30-2022 [facility] Work Phone: CBC panel Auto (Bld)on 10-03 Erythrocyte distribution width (RBC) [Ratio] 13.6 % 11.5 - 14.5 % [facility] Hematocrit (Bld) [Volume fraction] 44.7 % 35.0 - 47.0 % [facility] Hemoglobin (Bld) [Mass/Vol] 15.2 g/dL 11.7 - 16.0 g/dL [facility] Interpretation and review of laboratory results Normal [facility] MCH (RBC) [Entitic mass] 31.5 pg 26.0 - 34.0 pg [facility] MCHC (RBC) [Mass/Vol] 34.1 % 32.0 - 36.0 % [facility] MCV (RBC) [Entitic vol] 92.3 fL 80.0 - 98.0 fL [facility] Platelet mean volume (Bld) [Entitic vol] 7.9 fL 7.4 - 12.4 fL [facility] Platelets (Bld) [#/Vol] 331 10*3/uL 140 - 440 10*3/uL [facility] RBC (Bld) [#/Vol] 4.84 10*6/uL 3.8 - 5.20 10*6/uL [facility] WBC (Bld) [#/Vol] 6.4 10*3/uL 3.6 - 10.7 10*3/uL [facility] - Coagulationon 0 10-03-2022 PT Coag (Bld) [Time] 10.0 s 9.0 - 12.0 s [facility] No Panel Informationon 10-03 Successful uncomplicated [...] Chery Electronically Signed Date/Time: 10/03/2022 2:52 PM [facility] EMERG[facility]PART[facility] RADIOLOGY SYSTEM [facility] Name[facility] : 1970 [id number] Exam Date/Time: 10/03/2022 09:03 Procedure: IR MYELOGRAPHY [...] moderate facet arthrosis. Neural foramina remain patent. [facility] Amelie Chery MD - 10/03/2022 [...] Electronically Signed Date/Time: 10/03/2022 2:52 PM EST [facility] Radiology Study observation (narrative) [facility] gabby No Panel InformationOrdered By: Amelie Chery on 10-03-2022 [facility] Work Phone: PT Coag (Bld) [Time]on 10-03 INR Coag (PPP) [Relative time] 0.9 {INR} 0.9 - 1.1 [facility] Comment on above: Recommended Anticoag ulant [...] Interpretation and review of laboratory results Normal [facility] Absolute lymphocyte countOrd ered By: Dr. Jeffrey on 09-23-2022 Lymphocytes Auto (Unsp spec) [#/Vol] 1.88 10*3/uL 0.83-4.51 [facility] Basophil percentageOrdered B y: Dr. Jeffrey on 09-23-2022 Basophils/100 WBC (Bld) 0.5 % 0-1 [facility] Bilirubin [Mass/Vol] 0.30 mg/dL 0.20-1.00 [facility] Comment on above: For patients on eltr ombopag therapy, use of Dimension [place] TBIL is not recommended. Chloride [Moles/Vol] 108 mmol/L 98-107 [facility] Eosinophils/100 WBC (Bld) 0.5 % 0-5 [facility] Glucose [Mass/Vol] 108 mg/dL 74-106 [facility] Comment on above: Fasting Glucose resu lt from 100 to 125 mg/dL suggests IMPAIRED HOMEOSTASIS per A.D.A. criteria. Neutrophils (Bld) [#/Vol] 7.0 10*3/uL 2.0-7.7 [facility] Neutrophils/100 WBC (Bld) 72.9 % 47-70 [facility] Potassium [Moles/Vol] 4.2 mmol/L 3.5-5.1 [facility] Protein [Mass/Vol] 7.7 g/dL 6.4-8.2 [facility] Sodium [Moles/Vol] 139 mmol/L 136-145 [facility] WBC (Bld) [#/Vol] 9.6 10*3/uL 4.4-11.0 [facility] Blood erythrocytes count (nu mber/volume)Ordered By: Dr. Jeffrey on 09-23-2022 RBC (Bld) [#/Vol] 5.21 10*6/uL 4.2-5.4 [facility] Blood hemoglobin measurement (mass/volume)Ordered By: Dr. Jeffrey on 09-23-2022 Hemoglobin (Bld) [Mass/Vol] 16.0 g/dL 12.0-15.0 [facility] Blood lymphocytes/100 leukoc ytesOrdered By: Dr. Jeffrey on 09-23-2022 Lymphocytes/100 WBC (Bld) 19.6 % 19-41 [facility] Blood monocytes/100 leukocyt esOrdered By: Dr. Jeffrey on 09-23-2022 Monocytes/100 WBC (Bld) 6.1 % 0-10 [facility] Blood platelet mean volumeOr dered By: Dr. Jeffrey on 09-23-2022 Platelet mean volume (Bld) [Entitic vol] 10.0 fL 6.2-12.0 [facility] Determination of erythrocyte mean corpuscular volume (MCV)Ordered By: Dr. Jeffrey on 09-23-2022 MCV (RBC) [Entitic vol] 91.6 fL 81-99 [facility] Direct bilirubinOrdered By: Dr. Jeffrey on 09-23-2022 Bilirubin.direct [Mass/Vol] 0.12 mg/dL 0.00-0.30 [facility] Hematocrit Auto (Bld) [Volum e fraction]Ordered By: Dr. Jeffrey on 09-23-2022 Hematocrit (Bld) [Volume fraction] 47.7 % 37-47 [facility] Laboratory - Chemistry and C hemistry - challengeOrdered By: Dr. Jeffrey on 09-23-2022 ALP [Catalytic activity/Vol] 195 U/L 45-117 [facility] ALT [Catalytic activity/Vol] 25 U/L 13-56 [facility] CO2 [Moles/Vol] 23.0 mmol/L 21.0-32.0 [facility] Globulin (S) [Mass/Vol] 3.7 g/dL 2.2-4.2 [facility] Lipase [Catalytic activity/Vol] 115 U/L 73-393 [facility] Urea nitrogen/Creatinine [Mass ratio] 12.6 mg/mg 10-20 [facility] Laboratory - Hematology and Cell countsOrdered By: Dr. Jeffrey on 09-23-2022 Erythrocyte distribution width (RBC) [Entitic vol] 42.8 fL 35.1-43.9 [facility] Erythrocyte distribution width (RBC) [Ratio] 12.8 % 11.6-14.6 [facility] Immature granulocytes/100 WBC (Bld) 0.400 % 0.0-0.9 [facility] Comment on above: IG% - Immature Granu locytes (promyelocytes, myelocytes and metamyelocytes) > 1% indicates that a LEFT SHIFT is Present. MCH (RBC) [Entitic mass] 30.7 pg 27.0-32.0 [facility] Nucleated RBC/100 WBC (Bld) [Ratio] 0 % 0-5 [facility] MCHC Auto (RBC) [Mass/Vol]Or dered By: Dr. Jeffrey on 09-23-2022 MCHC (RBC) [Mass/Vol] 33.5 g/dL 32-36 [facility] No Panel InformationOrdered By: Dr. Jeffrey on 09-23-2022 Troponin I High Sensitivity < 3 pg/mL 3.0-54.0 [facility] Comment on above: Please Note: New Evelyn t Units and Gender Specific Reference Ranges. For more information see Policy Stat Procedure [place] High Sensitivity Troponin (TNIH) and attachments. Estimated Creatinine Clearance Calc 107.93 ml/min [facility] Estimated GFR (MDRD) Amer 126 mL/min >60 [facility] Comment on above: GFR Calc Estimated GFR (MDRD) Non-Af Amer 104 mL/min >60 [facility] Comment on above: Non- GFR Calc Platelets bldOrdered By: Dr. Jeffrey on 09-23-2022 Platelets (Bld) [#/Vol] 327 10*3/uL 150-450 [facility] Serum or plasma albumin tania urement (mass/volume)Ordered By: Dr. Jeffrey on 09-23-2022 Albumin [Mass/Vol] 4.0 g/dL 3.2-5.0 [facility] Serum or plasma calcium tania urement (mass/volume)Ordered By: Dr. Jeffrey on 09-23-2022 Calcium [Mass/Vol] 9.3 mg/dL 8.5-10.1 [facility] Serum or plasma creatinine m easurement (mass/volume)Ordered By: Dr. Jeffrey on 09-23-2022 Creatinine [Mass/Vol] 0.63 mg/dL 0.55-1.02 [facility] Comment on above: The validity of the calculated GFR & GFRAA in patients over 70 years has not been determined. Clinical correlation is essential. Serum or plasma urea nitroge n measurement (mass/volume)Ordered By: Dr. Jeffrey on 09-23-2022 Urea nitrogen [Mass/Vol] 8 mg/dL 7-18 [facility] Thin prep Papanicolaou smear with manual screeningOrdered By: Dr. Jeffrey on 09-23-2022 Thin prep Papanicolaou smear with manual screening 24 U/L 15-37 [facility] Thin prep Papanicolaou smear with manual screening 8 5-15 [facility] Absolute lymphocyte countOrd ered By: Dr. Chaney on 08-24-2022 Lymphocytes Auto (Unsp spec) [#/Vol] 2.95 10*3/uL 0.83-4.51 [facility] Basophil percentageOrdered B y: Dr. Chaney on 08-24-2022 Basophils/100 WBC (Bld) 0.6 % 0-1 [facility] Bilirubin [Mass/Vol] 0.30 mg/dL 0.20-1.00 [facility] Comment on above: For patients on eltr ombopag therapy, use of Dimension [place] TBIL is not recommended. Chloride [Moles/Vol] 110 mmol/L 98-107 [facility] Eosinophils/100 WBC (Bld) 1.0 % 0-5 [facility] Glucose [Mass/Vol] 99 mg/dL 74-106 [facility] Neutrophils (Bld) [#/Vol] 6.2 10*3/uL 2.0-7.7 [facility] Neutrophils/100 WBC (Bld) 61.6 % 47-70 [facility] Potassium [Moles/Vol] 4.1 mmol/L 3.5-5.1 [facility] Protein [Mass/Vol] 7.6 g/dL 6.4-8.2 [facility] Sodium [Moles/Vol] 141 mmol/L 136-145 [facility] WBC (Bld) [#/Vol] 10.0 10*3/uL 4.4-11.0 [facility] Blood erythrocytes count (nu mber/volume)Ordered By: Dr. Chaney on 08-24-2022 RBC (Bld) [#/Vol] 5.31 10*6/uL 4.2-5.4 [facility] Blood hemoglobin measurement (mass/volume)Ordered By: Dr. Chaney on 08-24-2022 Hemoglobin (Bld) [Mass/Vol] 16.4 g/dL 12.0-15.0 [facility] Blood lymphocytes/100 leukoc ytesOrdered By: Dr. Chaney on 08-24-2022 Lymphocytes/100 WBC (Bld) 29.5 % 19-41 [facility] Blood monocytes/100 leukocyt esOrdered By: Dr. Chaney on 08-24-2022 Monocytes/100 WBC (Bld) 6.8 % 0-10 [facility] Blood platelet mean volumeOr dered By: Dr. Chaney on 08-24-2022 Platelet mean volume (Bld) [Entitic vol] 9.8 fL 6.2-12.0 [facility] Determination of erythrocyte mean corpuscular volume (MCV)Ordered By: Dr. Chaney on 08-24-2022 MCV (RBC) [Entitic vol] 93.2 fL 81-99 [facility] Hematocrit Auto (Bld) [Volum e fraction]Ordered By: Dr. Chaney on 08-24-2022 Hematocrit (Bld) [Volume fraction] 49.5 % 37-47 [facility] Laboratory - Chemistry and C hemistry - challengeOrdered By: Dr. Chaney on 08-24-2022 ALP [Catalytic activity/Vol] 186 U/L 45-117 [facility] ALT [Catalytic activity/Vol] 21 U/L 13-56 [facility] CO2 [Moles/Vol] 24.0 mmol/L 21.0-32.0 [facility] Globulin (S) [Mass/Vol] 3.9 g/dL 2.2-4.2 [facility] Lipase [Catalytic activity/Vol] 164 U/L 73-393 [facility] Urea nitrogen/Creatinine [Mass ratio] 9.4 mg/mg 10-20 [facility] Laboratory - Hematology and Cell countsOrdered By: Dr. Chaney on 08-24-2022 Erythrocyte distribution width (RBC) [Entitic vol] 43.2 fL 35.1-43.9 [facility] Erythrocyte distribution width (RBC) [Ratio] 12.6 % 11.6-14.6 [facility] Immature granulocytes/100 WBC (Bld) 0.500 % 0.0-0.9 [facility] Comment on above: IG% - Immature Granu locytes (promyelocytes, myelocytes and metamyelocytes) > 1% indicates that a LEFT SHIFT is Present. MCH (RBC) [Entitic mass] 30.9 pg 27.0-32.0 [facility] Nucleated RBC/100 WBC (Bld) [Ratio] 0 % 0-5 [facility] MCHC Auto (RBC) [Mass/Vol]Or dered By: Dr. Chaney on 08-24-2022 MCHC (RBC) [Mass/Vol] 33.1 g/dL 32-36 [facility] No Panel InformationOrdered By: Dr. Chaney on 08-24-2022 Troponin I High Sensitivity 4 pg/mL 3.0-54.0 [facility] Comment on above: Please Note: New Evelyn t Units and Gender Specific Reference Ranges. For more information see Policy Stat Procedure [place] High Sensitivity Troponin (TNIH) and attachments. Estimated Creatinine Clearance Calc 106.24 ml/min [facility] Estimated GFR (MDRD) Amer 125 mL/min >60 [facility] Comment on above: GFR Calc Estimated GFR (MDRD) Non-Af Amer 103 mL/min >60 [facility] Comment on above: Non- GFR Calc Platelets bldOrdered By: Dr. Chaney on 08-24-2022 Platelets (Bld) [#/Vol] 442 10*3/uL 150-450 [facility] Serum or plasma albumin tania urement (mass/volume)Ordered By: Dr. Chaney on 08-24-2022 Albumin [Mass/Vol] 3.7 g/dL 3.2-5.0 [facility] Serum or plasma albumin/glob ulin mass ratioOrdered By: Dr. Chaney on 08-24-2022 Albumin/Globulin [Mass ratio] 0.9 {ratio} 0.9-2.4 [facility] Serum or plasma calcium tania urement (mass/volume)Ordered By: Dr. Chaney on 08-24-2022 Calcium [Mass/Vol] 8.8 mg/dL 8.5-10.1 [facility] Serum or plasma creatinine m easurement (mass/volume)Ordered By: Dr. Chaney on 08-24-2022 Creatinine [Mass/Vol] 0.64 mg/dL 0.55-1.02 [facility] Comment on above: The validity of the calculated GFR & GFRAA in patients over 70 years has not been determined. Clinical correlation is essential. Serum or plasma urea nitroge n measurement (mass/volume)Ordered By: Dr. Chaney on 08-24-2022 Urea nitrogen [Mass/Vol] 6 mg/dL 7-18 [facility] Thin prep Papanicolaou smear with manual screeningOrdered By: Dr. Chaney on 08-24-2022 Thin prep Papanicolaou smear with manual screening 18 U/L 15-37 [facility] Thin prep Papanicolaou smear with manual screening 7 5-15 [facility] Absolute lymphocyte countOrd ered By: Dr. Parkinson on 08-20-2022 Lymphocytes Auto (Unsp spec) [#/Vol] 3.73 10*3/uL 0.83-4.51 [facility] Basophil percentageOrdered B y: Dr. Parkinson on 08-20-2022 Basophils/100 WBC (Bld) 0.5 % 0-1 [facility] Chloride [Moles/Vol] 110 mmol/L 98-107 [facility] Eosinophils/100 WBC (Bld) 1.3 % 0-5 [facility] Glucose [Mass/Vol] 99 mg/dL 74-106 [facility] Neutrophils (Bld) [#/Vol] 5.5 10*3/uL 2.0-7.7 [facility] Neutrophils/100 WBC (Bld) 54.3 % 47-70 [facility] Potassium [Moles/Vol] 3.7 mmol/L 3.5-5.1 [facility] Sodium [Moles/Vol] 143 mmol/L 136-145 [facility] WBC (Bld) [#/Vol] 10.0 10*3/uL 4.4-11.0 [facility] Blood erythrocytes count (nu mber/volume)Ordered By: Dr. Parkinson on 08-20-2022 RBC (Bld) [#/Vol] 4.75 10*6/uL 4.2-5.4 [facility] Blood hemoglobin measurement (mass/volume)Ordered By: Dr. Parkinson on 08-20-2022 Hemoglobin (Bld) [Mass/Vol] 14.9 g/dL 12.0-15.0 [facility] Blood lymphocytes/100 leukoc ytesOrdered By: Dr. Parkinson on 08-20-2022 Lymphocytes/100 WBC (Bld) 37.2 % 19-41 [facility] Blood monocytes/100 leukocyt esOrdered By: Dr. Parkinson on 08-20-2022 Monocytes/100 WBC (Bld) 6.3 % 0-10 [facility] Blood platelet mean volumeOr dered By: Dr. Parkinson on 08-20-2022 Platelet mean volume (Bld) [Entitic vol] 9.6 fL 6.2-12.0 [facility] COVID-19 virus antigen assay Ordered By: Dr. Parkinson on 08-20-2022 SARS-CoV-2 (COVID-19) Ag IA.rapid Ql (Resp) [facility] Determination of erythrocyte mean corpuscular volume (MCV)Ordered By: Dr. Parkinson on 08-20-2022 MCV (RBC) [Entitic vol] 92.0 fL 81-99 [facility] Hematocrit Auto (Bld) [Volum e fraction]Ordered By: Dr. Parkinson on 08-20-2022 Hematocrit (Bld) [Volume fraction] 43.7 % 37-47 [facility] Laboratory - Chemistry and C hemistry - challengeOrdered By: Dr. Parkinson on 08-20-2022 CO2 [Moles/Vol] 28.0 mmol/L 21.0-32.0 [facility] Urea nitrogen/Creatinine [Mass ratio] 11.6 mg/mg 10-20 [facility] Laboratory - Hematology and Cell countsOrdered By: Dr. Parkinson on 08-20-2022 Erythrocyte distribution width (RBC) [Entitic vol] 41.9 fL 35.1-43.9 [facility] Erythrocyte distribution width (RBC) [Ratio] 12.4 % 11.6-14.6 [facility] Immature granulocytes/100 WBC (Bld) 0.400 % 0.0-0.9 [facility] Comment on above: IG% - Immature Granu locytes (promyelocytes, myelocytes and metamyelocytes) > 1% indicates that a LEFT SHIFT is Present. MCH (RBC) [Entitic mass] 31.4 pg 27.0-32.0 [facility] Nucleated RBC/100 WBC (Bld) [Ratio] 0 % 0-5 [facility] MCHC Auto (RBC) [Mass/Vol]Or dered By: Dr. Parkinson on 08-20-2022 MCHC (RBC) [Mass/Vol] 34.1 g/dL 32-36 [facility] No Panel InformationOrdered By: Dr. Parkinson on 08-20-2022 Estimated Creatinine Clearance Calc 98.54 ml/min [facility] Estimated GFR (MDRD) Amer 114 mL/min >60 [facility] Comment on above: GFR Calc Estimated GFR (MDRD) Non-Af Amer 94 mL/min >60 [facility] Comment on above: Non- GFR Calc Platelets bldOrdered By: Dr. Parkinson on 08-20-2022 Platelets (Bld) [#/Vol] 389 10*3/uL 150-450 [facility] Serum or plasma calcium tania urement (mass/volume)Ordered By: Dr. Parkinson on 08-20-2022 Calcium [Mass/Vol] 9.0 mg/dL 8.5-10.1 [facility] Serum or plasma creatinine m easurement (mass/volume)Ordered By: Dr. Parkinson on 08-20-2022 Creatinine [Mass/Vol] 0.69 mg/dL 0.55-1.02 [facility] Comment on above: The validity of the calculated GFR & GFRAA in patients over 70 years has not been determined. Clinical correlation is essential. Serum or plasma urea nitroge n measurement (mass/volume)Ordered By: Dr. Parkinson on 08-20-2022 Urea nitrogen [Mass/Vol] 8 mg/dL 7-18 [facility] Thin prep Papanicolaou smear with manual screeningOrdered By: Dr. Parkinson on 08-20-2022 Thin prep Papanicolaou smear with manual screening 5 5-15 [facility] Laboratory - Drug toxicology on 04-02-2022 Amphetamines Ql (U) Negative <1000 ng/mL [facility] Work Phone: [phone] Benzodiazepines Ql (U) Negative < 200 ng/mL [facility] Work Phone: [phone] Cannabinoids Screen Ql (U) Negative < 50 ng/mL [facility] Work Phone: [phone] Cocaine Ql (U) Negative < 300 ng/mL [facility] Work Phone: [phone] Opiates Ql (U) Negative < 300 ng/mL [facility] Work Phone: [phone] No Panel Informationon 04-02 MDMA (Ecstasy) Screen Negative < 500 ng/mL [facility] Work Phone: Miscellaneous Test See comment [facility] Work Phone: [phone] Comment on above: [id number] 6+OXYCODONE-B UND (ng/mL) DRUG RESULT SCREEN CUTOFF____ Amphetamines,Urine Negative ng/mL 1000 Amphetamine test includes Amphetamine and Methamphetamine.Barbiturates Negative ng/mL 200Benzodiazepines Negative ng/mL 200Cannabinoid Negative ng/mL 20Cocaine (Metab) Negative ng/mL 300Opiates Negative ng/mL 300 Opiates test includes Codeine, Morphine, Hydromorphone, Hydrocodone. Oxycodone/Oxymorphone,Urine Negative ng/mL 300 Test includes Oxydodone and Oxymorphone. TESTING PERFORMED AT [facility]. ORIGINAL REPORT ON FILE IN LAB CONTAINS ADDITIONAL TEST SITE INFORMATION. Urine Barbiturates Screen Negative < 200 ng/mL [facility] Work Phone: Urine Drug Screen Comment [facility] Work Phone: Comment on above: CONFIRMATORY [...] Urine Methadone Screen Negative < 300 ng/mL [facility] Work Phone: Urine phencyclidine (PCP) de tectionon 04-02-2022 Phencyclidine Ql (U) Negative < 25 ng/mL [facility] Work Phone: Absolute lymphocyte counton 01-27-2022 Lymphocytes Auto (Unsp spec) [#/Vol] 2.86 10*3/uL 0.83-4.51 [facility] Work Phone: Basophil percentageon 2021 Lactate [Moles/Vol] 1.6 mmol/L 0.4-2.0 [facility] Work Phone: [phone] Basophils/100 WBC (Bld) 0.7 % 0-1 [facility] Work Phone: Eosinophils/100 WBC (Bld) 1.0 % 0-5 [facility] Work Phone: Neutrophils (Bld) [#/Vol] 5.0 10*3/uL 2.0-7.7 [facility] Work Phone: Neutrophils/100 WBC (Bld) 57.6 % 47-70 [facility] Work Phone: WBC (Bld) [#/Vol] 8.7 10*3/uL 4.4-11.0 [facility] Work Phone: Bilirubin [Mass/Vol] 0.10 mg/dL 0.20-1.00 [facility] Work Phone: Comment on above: For patients on eltr ombopag therapy, use of Dimension [place] TBIL is not recommended. Chloride [Moles/Vol] 108 mmol/L 98-107 [facility] Work Phone: Glucose [Mass/Vol] 86 mg/dL 74-106 [facility] Work Phone: Potassium [Moles/Vol] 3.4 mmol/L 3.5-5.1 [facility] Work Phone: Protein [Mass/Vol] 6.9 g/dL 6.4-8.2 [facility] Work Phone: Sodium [Moles/Vol] 140 mmol/L 136-145 [facility] Work Phone: Blood erythrocytes count (nu mber/volume)on 01-27-2022 RBC (Bld) [#/Vol] 4.54 10*6/uL 4.2-5.4 [facility] Work Phone: Blood hemoglobin measurement (mass/volume)on 01-27-2022 Hemoglobin (Bld) [Mass/Vol] 14.2 g/dL 12.0-15.0 [facility] Work Phone: Blood lymphocytes/100 leukoc yteson 01-27-2022 Lymphocytes/100 WBC (Bld) 32.8 % 19-41 [facility] Work Phone: Blood manual differential co mment interpretation (narrative result)on 01-27-2022 Manual differential comment Albert (Bld) [Interp] SEE COMMENT [facility] Work Phone: Blood monocytes/100 leukocyt eson 01-27-2022 Monocytes/100 WBC (Bld) 6.8 % 0-10 [facility] Work Phone: Blood platelet adequacy dete ction by light microscopyon 01-27-2022 Platelets LM Ql (Bld) ADEQUATE ADEQ [facility] Work Phone: Blood platelet mean volumeon 01-27-2022 Platelet mean volume (Bld) [Entitic vol] 9.7 fL 6.2-12.0 [facility] Work Phone: Determination of erythrocyte mean corpuscular volume (MCV)on 01-27-2022 MCV (RBC) [Entitic vol] 96.3 fL 81-99 [facility] Work Phone: Hematocrit Auto (Bld) [Volum e fraction]on 01-27-2022 Hematocrit (Bld) [Volume fraction] 43.7 % 37-47 [facility] Work Phone: Laboratory - Chemistry and C hemistry - challengeon 01-27-2022 ALP [Catalytic activity/Vol] 133 U/L 45-117 [facility] Work Phone: ALT [Catalytic activity/Vol] 20 U/L 13-56 [facility] Work Phone: CO2 [Moles/Vol] 25.0 mmol/L 21.0-32.0 [facility] Work Phone: [phone] Globulin (S) [Mass/Vol] 3.9 g/dL 2.2-4.2 [facility] Work Phone: [phone] Urea nitrogen/Creatinine [Mass ratio] 10.4 mg/mg 10-20 [facility] Work Phone: [phone] Laboratory - Hematology and Cell countson 01-27-2022 Anisocytosis Ql (Bld) 1+ [facility] Work Phone: [phone] Erythrocyte distribution width (RBC) [Entitic vol] 43.8 fL 35.1-43.9 [facility] Work Phone: [phone] Erythrocyte distribution width (RBC) [Ratio] 12.4 % 11.6-14.6 [facility] Work Phone: [phone] Immature granulocytes/100 WBC (Bld) 1.100 % 0.0-0.9 [facility] Work Phone: [phone] Comment on above: IG% - Immature Granu locytes (promyelocytes, myelocytes and metamyelocytes) > 1% indicates that a LEFT SHIFT is Present. MCH (RBC) [Entitic mass] 31.3 pg 27.0-32.0 [facility] Work Phone: Nucleated RBC/100 WBC (Bld) [Ratio] 0 % 0-5 [facility] Work Phone: [phone] MCHC Auto (RBC) [Mass/Vol]on 01-27-2022 MCHC (RBC) [Mass/Vol] 32.5 g/dL 32-36 [facility] Work Phone: [phone] Macrocytes detectionon 01-27 Macrocytes Ql (Bld) 1+ [facility]: [phone] Panel Informationon 01-27 Atypical Lymphocytes 1+ % [facility] Work Phone: [phone] Estimated Creatinine Clearance Calc 141.65 ml/min [facility] Work Phone: Estimated GFR (MDRD) Amer 174 mL/min >60 [facility] Work Phone: [phone] Comment on above: GFR Calc Estimated GFR (MDRD) Non-Af Amer 144 mL/min >60 [facility] Work Phone: Comment on above: Non- GFR Calc Platelets bldon 01-27-2022 Platelets (Bld) [#/Vol] 400 10*3/uL 150-450 [facility] Work Phone: RBC morphologyon 01-27-2022 RBC morphology finding Nom (Bld) N CHROM NORMAL NORM C&C [facility] Work Phone: Serum or plasma albumin tania urement (mass/volume)on 01-27-2022 Albumin [Mass/Vol] 3.0 g/dL 3.2-5.0 [facility] Work Phone: [phone] Serum or plasma albumin/glob ulin mass ratioon 01-27-2022 Albumin/Globulin [Mass ratio] 0.8 {ratio} 0.9-2.4 [facility] Work Phone: Serum or plasma calcium tania urement (mass/volume)on 01-27-2022 Calcium [Mass/Vol] 8.8 mg/dL 8.5-10.1 [facility] Work Phone: Serum or plasma creatinine m easurement (mass/volume)on 01-27-2022 Creatinine [Mass/Vol] 0.48 mg/dL 0.55-1.02 [facility] Work Phone: Comment on above: The validity of the calculated GFR & GFRAA in patients over 70 years has not been determined. Clinical correlation is essential. Serum or plasma urea nitroge n measurement (mass/volume)on 01-27-2022 Urea nitrogen [Mass/Vol] 5 mg/dL 7-18 [facility] Work Phone: [phone] Thin prep Papanicolaou smear with manual screeningon 01-27-2022 Thin prep Papanicolaou smear with manual screening 20 U/L 15-37 [facility] Work Phone: Thin prep Papanicolaou smear with manual screening 7 5-15 [facility] Work Phone: Basic Metabolic Panelon 04-25 Calcium [Mass/Vol] 8.5 mg/dL Normal 8.4-10.4 [facility] Comment on above: Performed By: #### C UA2 #### [facility] [address] [place] [address] Glucose [Mass/Vol] 79 mg/dL Normal 70-100 [facility] Comment on above: Performed By: #### C UA2 #### [facility] [address] [place] [address] Anion gap [Moles/Vol] 6 Normal [facility] Comment on above: Performed By: #### C UA2 #### [facility] [address] [place] [address] CO2 [Moles/Vol] 25 mmol/L Normal 22-30 [facility] Comment on above: Performed By: #### C UA2 #### [facility] [address] [place] [address] Creatinine [Mass/Vol] 0.61 mg/dL Normal 0.52-1.25 [facility] Comment on above: Performed By: #### C UA2 #### [facility] [address] [place] [address] GFR/1.73 sq M predicted among blacks MDRD (S/P/Bld) [Vol rate/Area] mL/min/{1.73_m2} Normal >60 [facility] Comment on above: Performed By: #### C UA2 #### [facility] [address] [place] [address] GFR/1.73 sq M predicted among non-blacks MDRD (S/P/Bld) [Vol rate/Area] mL/min/{1.73_m2} Normal >60 [facility] Comment on above: Result Comment: KDIG [...] secretion. Performed By: #### C UA2 #### [address] [place], [place] Urea nitrogen [Mass/Vol] 5 mg/dL Low 7-20 [facility] Comment on above: Performed By: #### C UA2 #### [address] [place], [place] Potassium [Moles/Vol] 3.6 mmol/L Normal 3.5-5.1 [facility] Comment on above: Performed By: #### C UA2 #### [address] [place], [place] Chloride [Moles/Vol] 108 mmol/L High 98-107 [facility] Comment on above: Performed By: #### C UA2 #### [address] [address] [place], [place] Sodium [Moles/Vol] 139 mmol/L Normal 135-145 [facility] Comment on above: Performed By: #### C UA2 #### [address] [place], [place] Basic Metabolic Panel w/ Ref hailey to MGon 05-15-2020 Anion gap [Moles/Vol] 6 mmol/L [facility], [place] Calcium [Mass/Vol] 8.5 mg/dL 8.4 - 10. 4 mg/dL [facility], [place] Chloride [Moles/Vol] 108 mmol/L High 98 - 10 7 mmol/L [facility] CO2 [Moles/Vol] 25 mmol/L 22 - 30 mmol/L [facility] Creatinine [Mass/Vol] 0.61 mg/dL 0.52 - 1.25 mg/dL [place] EGFR IF NonAfrican Somali >90.0 >60 mL/min [place] Comment on above: KDIGO guidelines pro [...] MDRD (S/P/Bld) [Vol rate/Area] mL/min/{1.73_m2} >60 mL/min [place] Glucose [Mass/Vol] 79 mg/dL 70 - 100 mg/dL [place] Interpretation and review of laboratory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 [Mass/Vol] 0.0 mg/dL 0 - 0.3 mg/dL [place] Protein [Mass/Vol] 7.7 g/dL 6.3 - 8.2 g/dL [place] Lactic Acidon 05-13-2020 Lactate [Moles/Vol] 1.9 mmol/L Normal 0.7-2.0 [facility] Comment on above: Performed By: #### H EMDF, PT, LACT3, BMP3, LFT3, LIPA4 #### [facility] [address], [place] Lactic Acid, Plasmaon 2019 Lactate [Moles/Vol] 1.9 mmol/L 0.7 - 2 mmol/L [place] Lipaseon 05-13-2020 Lipase [Catalytic activity/Vol] 206 U/L Normal 23-300 [facility] Comment on above: Performed By: #### H EMDF, BMP3 #### [facility] [address], [place] Lipase [Catalytic activity/Vol] 206 U/L 23 - 300 U/L [place], [place] Otheron 05-13-2020 Test Performed by [facility], [address] [place], [place] [id number] [place] [address] Test Performed by [facility], [address] [place] [id number] [place] [address] Prothrombin Timeon 0 INR Coag (PPP) [Relative time] 0.9 Normal 0.9-1.1 [facility] Comment on above: Result Comment: Rah [...] EMDF, PT, LACT3, BMP3, LFT3, LIPA4 #### [facility] [address] [place] [address] PT Coag (PPP) [Time] 9.8 s Normal 9.0-12.0 [facility] Comment on above: Result Comment: . Performed By: #### H EMDF, PT, LACT3, BMP3, LFT3, LIPA4 #### [facility] [address] [place] [address] Protime-INRon 05-13-2020 INR Coag (PPP) [Relative time] 0.9 {INR} [place], [place] Comment on above: Recommended Anticoag ulant [...] [Time] 9.8 s 9 - 12 s [place], [place] Comment on above: . TYPE AND SCREENon 05-13-2020 Sodium [Moles/Vol] Negative [place] Sodium [Moles/Vol] Positive [place] Sodium [Moles/Vol] O [place] Test Performed by [facility], [address] [place] [address] [place] Urinalysison 05-13-2020 Appearance (U) Clear Clear NA [place] Comment on above: . Bilirubin Urine Negative Negative mg/dL [place] Comment on above: . Color (U) Light-Yellow Lt. Yellow NA [place] Comment on above: . Glucose, Ur Normal Normal (<70) mg/dL [place] Comment on above: . Interpretation and review of laboratory results Abnormal [place] Ketones Ql (U) Negative Negative mg/dL [place] Comment on above: . LEUKOCYTES, UA Negative Negative La/uL [place] Comment on above: . Mucous Threads Few Negative /[LPF] [place] Comment on above: . Nitrite, Urine Negative Negative NA [place] Comment on above: . Occult Blood,Urine 0.06 mg/dL Abnormal Negative [place] Comment on above: . pH (U) 6.0 [pH] [place] Comment on above: . Protein (U) [Mass/Vol] Negative Negat keo mg/dL [place] Comment on above: . RBC (U) [#/Vol] 3-5 Abnormal 0 - 2 /[HPF] [place] Comment on above: . Specific [place], Urine >1.030 Abnormal [place] Comment on above: . Squam Epithel, UA 3-5 3 - 5 /[HPF] [place] Comment on above: . Urobilinogen, Urine Normal Normal ( 0-1) mg/dL [place] Comment on above: . WBC, UA 0-2 0 - 5 /[HPF] [place] Comment on above: . Test Performed by [facility], [facility] [place] [address] [place] CNPNon 01-17-2020 CNPN Telephone (PODCCP) MASONORTIZ ([id number]) 1970 F Date Time Provider Department 01/17/20 [...] da* FLONASE ALLERGY RELIEF NASAL Use 1 [place] in the nose twice* * OMEPRAZOLE 20 [...] Status:Closed by SILVANO SWEENEY on 01/17/20 [facility] Boby 01-13-2020 CNPN Telephone (PODCCP) ORTIZ MASON ([id number]) 1970 F Date Time Provider Department 01/13/20 [...] da* FLONASE ALLERGY RELIEF NASAL Use 1 [place] in the nose twice* * OMEPRAZOLE 20 [...] Status:Closed by FANTA HARTMANN on 01/13/20 Normal [facility] CASE MANAGEMon 01-09-2020 CASE MANAGEM HNO ID: [id number] Author: Diana CerratoRn) CLIVE Hernandez Service: Care [...] Patient request to take script to local [employer] company. Declining this CM to order for her. SIGNATURE: Jen Hernandez RN PATIENT NAME: Ortiz Mason DATE: January 09, 2020 TIME: 3:36 PM IMM Follow Up Copy Given: Yes Copy given to:: Patient Method: By Phone Normal [facility] CASE MANAGEM HNO ID: [id number] Author: Diana CerratoRn) CLIVE Hernandez Service: Care Management Author Type: Registered Nurse Type: Care Mgt Progress Note Filed: 01/09/2020 2:41 PM Note Text: CARE MANAGEMENT PROGRESS NOTE SERVICE DATE: 01/09/2020 SERVICE TIME: 1:22 PM LOS: 6 days Chart reviewed. DC order noted. Still awaiting PT/OT evals. Paged [facility] [place] to discuss. Await reply. PT/OT text paged and notified. 1331: Call from Dr. Mueller. He states patient is functional and unlikely to need skilled services upon dc. He states we can let PT/OT assess prior to dc. 1441: Script for WW on chart. Dr. Mueller notified this needs filled out. Patient requesting scripts be sent to [facility] in [place], not [facility]. Dr. Mueller again notified of this. SIGNATURE: Jen Hernandez RN PATIENT NAME: Ortiz Mason DATE: January 09, 2020 TIME: 1:22 PM PAGER/CONTACT #: [phone] [facility] Glucose Meteron 01-09-2020 Glucose [Mass/Vol] 127 mg/dL High 70-99 [facility] Comment on above: Result Comment: CLIVE TAMAYO Performed By: #### G LMET #### [place] [address] NURSING PROGon 01-09-2020 NURSING PROG HNO ID: [id number] Author: Lady (Rn) CLIVE Peralta Service: ? Author Type: Registered Nurse Type: Nursing Progress Note Filed: 01/09/2020 4:11 PM Note Text: Nursing Progress Note Patient Name: Ortiz Mason Patient Location: [place] [address] [address] 08-24 Discharge instructions give to the pt, fallow up appointment explained and medication pick up attendant information given, wheeled walker scrip given to pt at this time. Pt awaiting wheel chair This note was completed by: Lady Peralta RN [facility] PROGRESSon 01-09-2020 PROGRESS HNO ID: [id number] Author: Theron Worthington Service: Pain Management Author [...] status post gastric pacemaker presented 01/02 from [facility] with intractable back pain, urinary retention and severe bilateral lower extremity pain and spasm. Patient is followed by Dr. Robledo in [place] for pain management; last SI joint injection [...] # Pharmacy Refill Daily Dose* Pymt Type ARTIST'S REPRESENTATIVE 11/11/2019 2 11/11/2019 Gabapentin 300 MG Capsule 90.00 30 Eu Pet [id number] [id number] [place] 09/26/2019 2 09/25/2019 Oxycodone-Acetaminophen 5-325 12.00 3 Al Abby [id number] [facility] ([id number]) 0 30.00 [place] 09/19/2019 2 09/19/2019 Oxycodone-Acetaminophen 5-325 15.00 3 Do Kol [id number] [facility] (7357) 0 37.50 [place] 08/31/2019 2 08/31/2019 Gabapentin 300 MG Capsule 90.00 30 Ay Bas [id number] [facility] ([facility]357) 0 [place] 07/15/2019 2 07/15/2019 Gabapentin 300 MG Capsule 90.00 30 Ay Bas [id number] [facility] ([facility]357) 0 [place] 06/03/2019 2 05/30/2019 Diazepam 5 MG Tablet 10.00 4 To Le [id number] [facility] (7357) 0 1.25 LME [place] 06/03/2019 2 05/30/2019 Oxycodone-Acetaminophen 5-325 12.00 3 To Le [id number] [facility] (7357) 0 30.00 [place] 06/03/2019 2 06/03/2019 Gabapentin 300 MG Capsule 60.00 20 Je B [id number] [facility] (7357) 0 Medicare Current Facility-Administered Medications [...] tab(s) 6 mg ORAL HS PRN Leandra ([employer]) LAM [place].VISUAL MERCHANDISER 6 mg at 01/08/202121 - enoxaparin 40 mg injection (LOVENOX) 40 mg SUBCUTANEOUS q 24 HR Kelly (Res) Oannabellaaku, DO 40 mg at 01/08/20 0800 - prochlorperazine 10 mg injection (COMPAZINE) 10 mg INTRAVENOUS q 6 H PRN Kelly (Res) Oannabellaakshanique, DO 10 mg at 01/08/202032 - dexamethasone [...] 0340 - sodium chloride 0.65 % 2 [place] (AYR, OCEAN) 2 [place] EACH NOSTRIL PRN Kelly (Res) Ojiaku, DO [...] propionate (FLONASE ALLERGY RELIEF NASAL), Use 1 [place] in the nose twice daily. 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 Robledo in [place] after discharge Theron Worthington M.D. [facility] PT EDon 01-09-2020 PT ED HNO ID: [id number] Author: Whitney Bonilla (Pharmacist) Service: Pharmacy Author [...] Your Medications These medications were sent to [facility] [address] [place] [address] - [phone] [place] [address] ? dexamethasone 4 mg tablet ? lidocaine 5 % ? traMADol 50 mg tablet Normal [facility] THERAPY NTon 01-09-2020 THERAPY NT HNO ID: [id number] Author: Cely Alcantar/Ruddy Dee Service: Occupational Therapy Author Type: Occupational Therapist Type: Therapy (PT/OT/Speech/Resp) Filed: 01/09/2020 4:02 PM Note Text: OCCUPATIONAL THERAPY MISSED VISIT SERVICE DATE: 01/09/2020 SERVICE TIME: 1559 to 1559 ROOM: [place] [address] Attempted Evaluation. Patient not seen due to [...] January 09, 2020 TIME: 4:00 PM Normal [facility] THERAPY NT HNO ID: [id number] Author: Alona Troy Service: Physical Therapy Author Type: Physical Therapist Type: Therapy (PT/OT/Speech/Resp) Filed: 01/09/2020 1:51 PM Note Text: Physical Therapy Evaluation SERVICE DATE: 01/09/2020 SERVICE TIME: 1315 to 1338 ROOM: [place] [address] Recommended Discharge Disposition: Home Recommended Discharge Equipment: [...] moving, but will be going home to [facility]. This patient is below baseline functioning of [...] symptoms and signs-other Interventions Provided: Evaluation;Therapeutic Exercise (86895);Gait Training (42951) $ Evaluation-Moderate (61205) Billed Units: 1 unit Therapeutic Exercise (58979) Treatment Minutes: 3 0 units Skilled Intervention(s): Instruction in therapeutic exercise for stretching the left calf when it spasms, educated on use of a belt to pull foot into DF and to use a tennis ball to massage the calf. Both to assist with relieving the pain of cramping. Gait Training (23609) Treatment Minutes: 6 1 unit Skilled Intervention(s): [...] SIGNATURE: Alona Troy PT PATIENT NAME: Ortiz Masno DATE: January 09, 2020 TIME: 1:44 PM Normal [facility] Basic Metabolic Panelon 12-22 Anion gap [Moles/Vol] 12 mmol/L Normal 9-18 [facility] Comment on above: Performed By: #### M AG #### [facility] [address] [place], [place] [address] Calcium [Mass/Vol] 8.1 mg/dL Low 8.5-10.2 [facility] Comment on above: Performed By: #### M AG #### [facility] [address] [place], [place] [address] Chloride [Moles/Vol] 103 mmol/L Normal 97-105 [facility] Comment on above: Performed By: #### M AG #### [facility] [address] [place], [place] [address] CO2 Blood 23 mmol/L Normal 22-30 [facility] Comment on above: Performed By: #### M AG #### [facility] [address] [place], [place] [address] Creatinine [Mass/Vol] 0.63 mg/dL Normal 0.58-0.96 [facility] Comment on above: Performed By: #### M AG #### [facility] [address] [place], [place] [address] Glucose [Mass/Vol] 103 mg/dL High 74-99 [facility] Comment on above: Result Comment: The [place] Diabetes Association (ADA) provides guidance for cutoff [...] Standards of Medical Care in Diabetes 2016; [place] [employer] Association. Diabetes Care. 2016;39(Suppl 1). Performed By: #### M AG #### [facility] [address] [place], [place] [address] Potassium [Moles/Vol] 4.3 mmol/L Normal 3.7-5.1 [facility] Comment on above: Performed By: #### M AG #### [facility] [address] [place], [place] [address] Sodium [Moles/Vol] 138 mmol/L Normal 136-144 [facility] Comment on above: Performed By: #### M AG #### [facility] [address] [place], [place] [address] Urea nitrogen [Mass/Vol] 20 mg/dL Normal 7-21 [facility] Comment on above: Performed By: #### M AG #### [facility] [address] [place], [place] [address] CT BRAIN WO IVCONon 01-08-20 CT BRAIN WO IVCON * * *Final Report* * * DATE OF EXAM: 2020 10:21PM [facility] 0504 - CT BRAIN WO [...] recurrence of cerebral edema compared to 01/05/2020. [place] Leadperson: BINTA Transcribe Date/Time: 2020 10:22P Dictated by : MIKEL CARDENAS MD This examination was interpreted and the report reviewed and electronically signed by: MIKEL CARDENAS MD on 2020 10:26PM EST Normal [facility] Hemogramon 01-08-2020 Erythrocyte distribution width (RBC) [Ratio] 12.6 % Normal 11.7-14.4 [facility] Comment on above: Performed By: #### M AG #### [place] [address] Hematocrit (Bld) [Volume fraction] 43.5 % Normal 34.1-44.9 [facility] Comment on above: Performed By: #### M AG #### [place] [address] Hemoglobin (Bld) [Mass/Vol] 14.2 g/dL Normal 11.2-15.7 [facility] Comment on above: Performed By: #### M AG #### [place] [address] MCH (RBC) [Entitic mass] 32.1 pg Normal 25.6-32.2 [facility] [facility] Comment on above: Performed By: #### M AG #### [address] [address] MCHC (RBC) [Mass/Vol] 32.6 % Normal 31.6-34.8 [facility] Comment on above: Performed By: #### M AG #### [place] [address] MCV (RBC) [Entitic vol] 98.4 fL High 79.4-94.8 [facility] Comment on above: Performed By: #### M AG #### [place] [address] Platelet mean volume (Bld) [Entitic vol] 10.7 fL Normal 9.4-12.3 [facility] Comment on above: Performed By: #### M AG #### [facility] [address] [place] [address] Platelets (Bld) [#/Vol] 151 thou/cmm Low 182-369 [facility] Comment on above: Performed By: #### M AG #### [facility] [address] [place] [address] RBC (Bld) [#/Vol] 4.42 mil/cmm Normal 3.93-5.22 [facility] Comment on above: Performed By: #### M AG #### [place] [address] RDW SD 45.3 fl Normal 36.4-46.3 [facility] Comment on above: Performed By: #### M AG #### [facility] [address] [place] [address] WBC (Bld) [#/Vol] 10.78 thou/cmm High 3.98-10.04 [facility] Comment on above: Performed By: #### M AG #### [place] [address] MDRD GFRon 01-08-2020 GFR/1.73 sq M predicted among non-blacks MDRD (S/P/Bld) [Vol rate/Area] mL/min/{1.73_m2} Normal >60mL/min/1. 73m2 [facility] Comment on above: Result Comment: If t he patient is , multiply the result by 1.210. Performed By: #### G FR #### [place] [address] NURSING PROGon 01-08-2020 NURSING PROG HNO ID: [id number] Author: Meagan (Rn) CLIVE Tang Service: Nursing Author Type: Registered Nurse Type: Nursing Progress Note Filed: 01/08/2020 4:07 PM Note Text: Report called to 8100. Patient aware of transfer Normal [facility] PLAN OF CAREon 01-08-2020 PLAN OF CARE HNO ID: [id number] Author: Michelle Talavera Service: Neurology General Author [...] in office for seizures, migraine hx. Normal [facility] PROGRESSon 01-08-2020 PROGRESS HNO ID: [id number] Author: Melisa Bryant Service: Pain Management Author [...] status post gastric pacemaker presented 01/02 from [place] transfer with intractable back pain, urinary retention and severe bilateral lower extremity pain and spasm. Patient is followed by Dr. Robledo in [place] for pain management; last SI joint injection [...] # Pharmacy Refill Daily Dose* Pymt Type ARTIST'S REPRESENTATIVE 11/11/2019 2 11/11/2019 Gabapentin 300 MG Capsule 90.00 30 Eu Pet [id number] [id number] [place] 09/26/2019 2 09/25/2019 Oxycodone-Acetaminophen 5-325 12.00 3 Al Abby [id number] [facility] ([facility] 0 30.00 [place] 09/19/2019 2 09/19/2019 Oxycodone-Acetaminophen 5-325 15.00 3 Do Kol [id number] [facility] ([facility] 0 37.50 [place] 08/31/2019 2 08/31/2019 Gabapentin 300 MG Capsule 90.00 30 Ay Bas [id number] [facility] ([facility] [place] 07/15/2019 2 07/15/2019 Gabapentin 300 MG Capsule 90.00 30 Ay Bas [id number] [facility] ([facility] [place] 06/03/2019 2 05/30/2019 Diazepam 5 MG Tablet 10.00 4 To Le [id number] [facility] ([facility]) 0 1.25 [place] 06/03/2019 2 05/30/2019 Oxycodone-Acetaminophen 5-325 12.00 3 To Le [id number] [facility] ([facility] 0 30.00 [place] 06/03/2019 2 06/03/2019 Gabapentin 300 MG Capsule 60.00 20 Je B [id number] [facility] ([facility]) 0 Medicare Current Facility-Administered Medications [...] H PRN Erika Bunch 5 mg at 01/08/20 0800 - perflutren lipid microspheres 1.1 mg/mL 1.3 mL injection (DEFINITY) 1.3 mL INTRAVENOUS DIRECTED PRN Erika Bunch - ipratropium-albuterol 3 mL nebulizer solution (DUONEB) 3 mL INHALATION QID Erika Bunch 3 mL at 01/08/20 1151 - potassium chloride ER 20-40 mEq tab(s) (K-DUR, KLOR-CON) 20-40 mEq ORAL/FEEDING TUBE PRN Erika Bunch Or - potassium chloride iv piggyback 20 [...] 1255 - sodium chloride 0.65 % 2 [place] (AYR, OCEAN) 2 [place] EACH NOSTRIL PRN Erika R Julio C [...] propionate (FLONASE ALLERGY RELIEF NASAL), Use 1 [place] in the nose twice daily. 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 Robledo in [place] after discharge Melisa Bryant MD [facility] PROGRESS HNO ID: [id number] Author: Beverly Vora Service: Neurology ICU Author [...] Is Patient Clinically Ready to Transfer to [facility] or SDU?: No Discharge Planning: To be [...] 0946 -- 01/04/20 0945 pneumatic compression stockings ([place]) 01/03/20 0345 vte non-pharmacologic prophylaxis - none indicated ([place]) VTE Prophylaxis: VTE prophylaxis appropriate Plan of care discussed with: Provider, RN, Patient SIGNATURE: Kelly Robertson DO PATIENT NAME: Ortiz Mason DATE: January 08, 2020 TIME: 2:12 PM PAGER/CONTACT #: [phone] THE NEURO ICU MANAGEMENT OF THIS PATIENT [...] Transfer to floor Please see the documented yipobb-mg-lyhxib plan in the updated problem list. Plan of care discussed with: Provider, RN, Patient. Beverly Vora DO Staff, Neurointensive Care [facility] [place] Date of Service: 01/08/2020 Time of Service: 2:17 PM This is an electronically created document. If printed, please do not remove from the chart or modify printed copy. > 35 min spent at bedside counseling family and discussing plan with consultants as well as bedside management of the patient. Normal [facility] Basic Metabolic Panelon 05- Anion gap [Moles/Vol] 10 mmol/L Normal 9-18 [facility] Comment on above: Performed By: #### M AG #### [facility] [address] [place], [place] [address] Calcium [Mass/Vol] 8.3 mg/dL Low 8.5-10.2 [facility] Comment on above: Performed By: #### M AG #### [facility] [address] [place], [place] [address] Chloride [Moles/Vol] 106 mmol/L High 97-105 [facility] Comment on above: Performed By: #### M AG #### [facility] [address] [place], [place] [address] CO2 Blood 28 mmol/L Normal 22-30 [facility] Comment on above: Performed By: #### M AG #### [facility] [address] [place], [place] [address] Creatinine [Mass/Vol] 0.69 mg/dL Normal 0.58-0.96 [facility] Comment on above: Performed By: #### M AG #### [facility] [address] [place], [place] [address] Glucose [Mass/Vol] 97 mg/dL Normal 74-99 [facility] Comment on above: Result Comment: The [place] Diabetes Association (ADA) provides guidance for cutoff [...] Standards of Medical Care in Diabetes 2016; [place] [employer]. Diabetes Care. 2016;39(Suppl 1). Performed By: #### M AG #### [facility] [address] [place], [place] [address] Potassium [Moles/Vol] 4.5 mmol/L Normal 3.7-5.1 [facility] Comment on above: Performed By: #### M AG #### [facility] [address] [place], [place] [address] Sodium [Moles/Vol] 144 mmol/L Normal 136-144 [facility] Comment on above: Performed By: #### M AG #### [facility] [address] [place] [address] Urea nitrogen [Mass/Vol] 17 mg/dL Normal 7-21 [facility] Comment on above: Performed By: #### M AG #### [facility] [address] [place] [address] Anion gap [Moles/Vol] 11 mmol/L Normal 9-18 [facility] Comment on above: Performed By: #### M AG #### [facility] [address] [place], [place] [address] Calcium [Mass/Vol] 8.3 mg/dL Low 8.5-10.2 [facility] Comment on above: Performed By: #### M AG #### [facility] [address] [place] [address] Chloride [Moles/Vol] 105 mmol/L Normal 97-105 [facility] Comment on above: Performed By: #### M AG #### [facility] [address] [place] [address] CO2 Blood 27 mmol/L Normal 22-30 [facility] Comment on above: Performed By: #### M AG #### [facility] [address] [place], [place] [address] Creatinine [Mass/Vol] 0.69 mg/dL Normal 0.58-0.96 [facility] Comment on above: Performed By: #### M AG #### [facility] [address] [place], [place] [address] Glucose [Mass/Vol] 99 mg/dL Normal 74-99 [facility] Comment on above: Result Comment: The [place] Diabetes Association (ADA) provides guidance for cutoff [...] Standards of Medical Care in Diabetes 2016; [place] [employer]. Diabetes Care. 2016;39(Suppl 1). Performed By: #### M AG #### [facility] [address] [place], [place] [address] Potassium [Moles/Vol] 4.5 mmol/L Normal 3.7-5.1 [facility] Comment on above: Performed By: #### M AG #### [facility] [address] [place], [place] [address] Sodium [Moles/Vol] 143 mmol/L Normal 136-144 [facility] Comment on above: Performed By: #### M AG #### [facility] [address] [place], [place] [address] Urea nitrogen [Mass/Vol] 15 mg/dL Normal 7-21 [facility] Comment on above: Performed By: #### M AG #### [facility] [address] [place], [place] [address] Magnesium Bloodon 2020 Magnesium [Mass/Vol] 2.5 mg/dL High 1.7-2.3 [facility] Comment on above: Performed By: #### M AG #### [facility] [address] [place], [place] [address] Osmolality Serumon 0 Osmolality [Osmolality] 302 mOsm/kg High 276-298 [facility] Comment on above: Performed By: #### M AG #### [facility] [address] [place], [place] [address] Osmolality [Osmolality] 298 mOsm/kg Normal 276-298 [facility] Comment on above: Performed By: #### M AG #### [facility] [address] [place], [place] [address] PROGRESSon 2020 PROGRESS HNO ID: [id number] Author: Melisa Bryant Service: Pain Management Author [...] Patient is followed by Dr. Robledo in [place] for pain management; last SI joint injection [...] # Pharmacy Refill Daily Dose* Pymt Type ARTIST'S REPRESENTATIVE 11/11/2019 2 11/11/2019 Gabapentin 300 MG Capsule 90.00 30 Eu Pet [id number] [facility] [place] 09/26/2019 2 09/25/2019 Oxycodone-Acetaminophen 5-325 12.00 3 Al Abby [id number] [facility] ([facility] 0 30.00 [place] 09/19/2019 2 09/19/2019 Oxycodone-Acetaminophen 5-325 15.00 3 Do Kol [id number] [facility] ([facility]) 0 37.50 [place] 08/31/2019 2 08/31/2019 Gabapentin 300 MG Capsule 90.00 30 Ay Bas [id number] [facility] ([facility] [place] 07/15/2019 2 07/15/2019 Gabapentin 300 MG Capsule 90.00 30 Ay Bas [id number] [facility] ([facility] [place] 06/03/2019 2 05/30/2019 Diazepam 5 MG Tablet 10.00 4 To Le [id number] [facility] ([facility]357) 0 1.25 LME [place] 06/03/2019 2 05/30/2019 Oxycodone-Acetaminophen 5-325 12.00 3 To Le [id number] [facility] ([facility]357) 0 30.00 [place] 06/03/2019 2 06/03/2019 Gabapentin 300 MG Capsule 60.00 20 Je B [id number] [facility] (7357) 0 Medicare Current Facility-Administered Medications Medication Dose Route Frequency Provider Last Rate Last Dose - enoxaparin 40 mg injection (LOVENOX) 40 mg SUBCUTANEOUS q 24 HR Michelle Ilan 40 mg at 01/07/20 1304 - bisacodyl 10 mg suppository (DULCOLAX) 10 mg RECTAL ONCE Mickie ([employer]) Herraiz - prochlorperazine 10 mg injection (COMPAZINE) 10 mg INTRAVENOUS q 6 H PRN Michelle Ilan 10 mg at 01/07/20 1512 - diazePAM 5 mg injection (VALIUM) 5 mg INTRAVENOUS q 6 H PRN Erika Rivera Julio C 5 mg at 01/07/20 0803 - pantoprazole 40 mg injection (PROTONIX) 40 mg INTRAVENOUS DAILY (6 AM) Erika Rivera Julio C 40 mg at 01/07/20 0515 - perflutren lipid microspheres 1.1 mg/mL 1.3 mL injection (DEFINITY) 1.3 mL INTRAVENOUS DIRECTED PRN Erika Urbinao - ipratropium-albuterol 3 mL nebulizer solution (DUONEB) 3 mL INHALATION QID Erika Urbinao 3 mL at 01/07/20 1540 - potassium chloride ER 20-40 mEq tab(s) (K-DUR, KLOR-CON) 20-40 mEq ORAL/FEEDING TUBE PRN Erika Bunch Or - potassium chloride iv piggyback 20 mEq/100 mL 20 mEq INTRAVENOUS PRN Erika Bunch - magnesium sulfate in water 2 g in sterile water 50 ml 2 g INTRAVENOUS PRN Erika Urbinao - sodium phosphate 45 mmol in NaCl [...] ORAL/FEEDING TUBE q 6 H PRN Erika Bunch Or - ondansetron (PF) 4 mg injection (ZOFRAN) 4 mg INTRAVENOUS q 6 H PRN Erika Rivera Julio C 4 mg at 01/07/20 1150 - insulin lispro pen (rapid acting) (HumaLOG KWIKPEN) SUBCUTANEOUS q 6 H Erika R Julio C - fentaNYL 50 mcg/mL 25-50 mcg injection (SUBLIMAZE) 25-50 mcg INTRAVENOUS q 1 H PRN Erika R Julio C 50 mcg at 01/07/20 1150 - sodium chloride 0.65 % 2 [place] (AYR, OCEAN) 2 [place] EACH NOSTRIL PRN Erika R Julio C [...] VERIFY PATCH OTHER q 8 H Erika Flora Urbinao gabapentin (NEURONTIN) 300 mg capsule, Take [...] propionate (FLONASE ALLERGY RELIEF NASAL), Use 1 [place] in the nose twice daily. 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 Robledo in [place] after discharge Melisa Bryant MD [facility] PROGRESS HNO ID: [id number] Author: Beverly Vora Service: Neurology ICU Author [...] Is Patient Clinically Ready to Transfer to [facility] or SDU?: No Discharge Planning: To be [...] 0946 -- 01/04/20 0945 pneumatic compression stockings ([place]) 01/03/20 0345 vte non-pharmacologic prophylaxis - none indicated ([place]) VTE Prophylaxis: VTE prophylaxis appropriate Plan of care discussed with: ICU Team and RN SIGNATURE: Michelle Talavera APRN.ABRAHAN PATIENT NAME: Ortiz Mason DATE: 2020 TIME: 12:17 PM PAGER/CONTACT #: [phone] 35 minutes of CCT Attending Note I have personally performed a face to face assessment of the patient and have reviewed the PA/LAUNDRY PRESS OPERATOR note. The patient currently has the [...] and injured tooth per her) Signature: Beverly Vora, Date: 2020 Time: 12:23 PM [facility] PROGRESS HNO ID: [id number] Author: Mickie John Service: Neurosurgery Author Type: Nurse Practitioner Type: [...] H - sodium chloride 0.65 % 2 [place] (AYR, OCEAN) 2 [place] EACH NOSTRIL PRN - perflutren lipid microspheres [...] 0946 -- 01/04/20 0945 pneumatic compression stockings ([place], [place]) 01/03/20 0345 vte non-pharmacologic prophylaxis - none indicated ([place]) VTE Prophylaxis: VTE prophylaxis appropriate SIGNATURE: Mickie John APRN.CNP PATIENT NAME: Ortiz Mason DATE: 2020 TIME: 10:30 AM PAGER/CONTACT #: [phone] Normal [facility] Phosphorous Bloodon 01-07-20 20 Phosphate [Mass/Vol] 3.8 mg/dL Normal 2.7-4.8 [facility] Comment on above: Performed By: #### M AG #### [facility] [address] [place] [address] THERAPY NTon 2020 THERAPY NT HNO ID: [id number] Author: Lady (Ccc-Systems Manager) Kumar CCC/JUMPBASTING ARMHOLE BASTER Service: Speech/Swallow Author Type: Speech Language Pathologist Type: Therapy (PT/OT/Speech/Resp) Filed: 2020 1:43 PM Note Text: Speech Therapy Clinical Swallow Evaluation SERVICE DATE: 2020 SERVICE TIME: 1322 to 1334 ROOM: [place] [address] Nursing Recommendations: See swallow guide posted in [...] Full Session -Patient asleep in bed on JUMPBASTING ARMHOLE BASTER arrival, woke easily agreeable to evaluation -Patient [...] oral phase Interventions Provided: Clinical Swallow Evaluation (63725) $ Clinical Swallow Evaluation (85048) Billed Units: 1 unit Total Treatment Time (minutes): 12 SUBJECTIVE: Current Hospital Course: Chart reviewed; Reason for admission: 49yo F with a pertinent history of cauda equina syndrome 3 years ago for which she got decompression surgery, epilepsy, and brain aneurysm s/p coiling in the past, migraines, gastroparesis with pacer, and fibromyalgia presented to [facility] for the above CC. Please see [place] documents on the chart, I have updated [...] was found to have 420cc retention at [place] therefore a tucker was placed. Her legs [...] for this therapy evaluation/treatment. SIGNATURE: Lady Heath CCC-JUMPBASTING ARMHOLE BASTER PATIENT NAME: Ortiz Mason DATE: 2020 TIME: 1:39 PM Normal [facility] Activated PTTon 01-06-2020 aPTT Coag (Bld) [Time] 22.4 s Low 23.0-32.4 [facility] Comment on above: Result Comment: Unfr actionated [...] laboratory APTT reagent in use throughout the [facility]. Performed By: #### U RIN2 #### [facility] [address] [place], [place] [address] Basic Metabolic Panelon 12-22 Anion gap [Moles/Vol] 10 mmol/L Normal 9-18 [facility] Comment on above: Performed By: #### G FR #### [facility] [address] [place], [place] [address] Anion gap [Moles/Vol] 12 mmol/L Normal 9-18 [facility] Comment on above: Performed By: #### U RIN2 #### [facility] [address] [place], [place] [address] Calcium [Mass/Vol] 8.1 mg/dL Low 8.5-10.2 [facility] Comment on above: Performed By: #### U RIN2 #### [facility] [address] [place], [place] [address] Calcium [Mass/Vol] 8.2 mg/dL Low 8.5-10.2 [facility] Comment on above: Performed By: #### U RIN2 #### [facility] [address] [place], [place] [address] Calcium [Mass/Vol] 7.9 mg/dL Low 8.5-10.2 [facility] Comment on above: Performed By: #### G FR #### [facility] [address] [place] [address] Chloride [Moles/Vol] 104 mmol/L Normal 97-105 [facility] Comment on above: Performed By: #### U RIN2 #### [facility] [address] [place] [address] Performed By: #### G FR #### [facility] [address] [place] [address] CO2 Blood 26 mmol/L Normal 22-30 [facility] Comment on above: Performed By: #### G FR #### [facility] [address] [place] [address] Performed By: #### U RIN2 #### [facility] [address] [place] [address] CO2 Blood 27 mmol/L Normal 22-30 [facility] Comment on above: Performed By: #### U RIN2 #### [facility] [address] [place] [address] Creatinine [Mass/Vol] 0.66 mg/dL Normal 0.58-0.96 [facility] Comment on above: Performed By: #### U RIN2 #### [facility] [address] [place] [address] Creatinine [Mass/Vol] 0.68 mg/dL Normal 0.58-0.96 [facility] Comment on above: Performed By: #### U RIN2 #### [place] [address] Creatinine [Mass/Vol] 0.71 mg/dL Normal 0.58-0.96 [facility] Comment on above: Performed By: #### G FR #### [facility] [address] [place] [address] Glucose [Mass/Vol] 91 mg/dL Normal 74-99 [facility] Comment on above: Result Comment: The [place] Diabetes Association (ADA) provides guidance for cutoff [...] Standards of Medical Care in Diabetes 2016; [place] [employer]. Diabetes Care. 2016;39(Suppl 1). Performed By: #### U RIN2 #### [address] [address] Glucose [Mass/Vol] 95 mg/dL Normal 74-99 [facility] Comment on above: Result Comment: The [place] Diabetes Association (ADA) provides guidance for cutoff [...] Standards of Medical Care in Diabetes 2016; [place] [employer]. Diabetes Care. 2016;39(Suppl 1). Performed By: #### U RIN2 #### [address] [address] Glucose [Mass/Vol] 105 mg/dL High 74-99 [facility] Comment on above: Result Comment: The [place] Diabetes Association (ADA) provides guidance for cutoff [...] Standards of Medical Care in Diabetes 2016; [place] [employer]. Diabetes Care. 2016;39(Suppl 1). Performed By: #### G FR #### [facility] [address] [place], [place] [address] Potassium [Moles/Vol] 4.4 mmol/L Normal 3.7-5.1 [facility] Comment on above: Performed By: #### U RIN2 #### [facility] [address] [place] [address] Performed By: #### G FR #### [facility] [address] [place] [address] Potassium [Moles/Vol] 4.1 mmol/L Normal 3.7-5.1 [facility] Comment on above: Performed By: #### U RIN2 #### [facility] [address] [place] [address] Sodium [Moles/Vol] 143 mmol/L Normal 136-144 [facility] Comment on above: Performed By: #### U RIN2 #### [place] [address] Sodium [Moles/Vol] 140 mmol/L Normal 136-144 [facility] Comment on above: Performed By: #### G FR #### [place] [address] Sodium [Moles/Vol] 142 mmol/L Normal 136-144 [facility] Comment on above: Performed By: #### U RIN2 #### [place] [address] Urea nitrogen [Mass/Vol] 15 mg/dL Normal 7-21 [facility] Comment on above: Performed By: #### G FR #### [place] [address] Urea nitrogen [Mass/Vol] 13 mg/dL Normal 7-21 [facility] Comment on above: Performed By: #### U RIN2 #### [place] [address] CASE MANAGEMon 01-06-2020 CASE MANAGEM HNO ID: [id number] Author: Olga Phillips Sec Service: Care Management Author Type: ? Type: Care Mgt Progress Note Filed: 01/06/2020 3:04 PM Note Text: CARE MANAGEMENT PROGRESS NOTE SERVICE DATE: 01/06/2020 SERVICE TIME: 0900 LOS: 3 days IMM Follow Up Copy Given: Yes(verbal reminder) Copy given to:: Patient Method: By Phone([employer] protocol) SIGNATURE: Olga Esposito PATIENT NAME: Ortiz Mason DATE: January 06, 2020 TIME: 3:04 PM PAGER/CONTACT #: [phone] Normal [facility] CT BRAIN WO IVCONon 01-06-20 CT BRAIN WO IVCON * * *Final Report* * * DATE OF EXAM: Jan 06 2020 6:11PM [facility] 0504 - CT BRAIN WO [...] of cerebral edema compared to yesterday's exam. [place] Leadperson: BINTA Transcribe Date/Time: Jan 06 2020 6:15P Dictated by : CLEM OSBORNE MD This examination was interpreted and the report reviewed and electronically signed by: CLEM OSBORNE MD on Jan 06 2020 6:19PM EST Normal [facility] Cult and Smr Respiratoryon 0 01-06-2020 Cult and Smr Respiratory Test performed at [facility] Normal oropharyngeal bobo present. Many Gram positive cocci Few Gram positive bacilli Few Polymorphonuclear leukocytes Rare Squamous epithelial cells Normal [facility] Comment on above: Performed By: #### U RIN2 #### [facility] [address] [place] [address] Hemogram/Diffon 01-06-2020 Abs Immature Grans 0.11 thou/cmm High 0.00-0.05 [facility] Comment on above: Performed By: #### G FR #### [facility] [address] [place] [address] Abs Neut (ANC) 9.43 thou/cmm High 1.56-6.13 [facility] Comment on above: Performed By: #### G FR #### [place] [address] Abs. Baso 0.01 thou/cmm Normal 0.01-0.08 [facility] Comment on above: Performed By: #### G FR #### [facility] [address] [place] [address] Abs. Ciales 0.66 thou/cmm Normal 0.27-0.70 [facility] Comment on above: Performed By: #### G FR #### [address] [address] Basophils/100 WBC (Bld) 0.1 % Normal [facility] Comment on above: Performed By: #### G FR #### [address] [address] Eosinophils (Bld) [#/Vol] 0.00 thou/cmm Normal 0.00-0.31 [facility] Comment on above: Performed By: #### G FR #### [facility] [address] [place] [address] Eosinophils/100 WBC (Bld) 0.0 % Normal [facility] Comment on above: Performed By: #### G FR #### [place] [address] Erythrocyte distribution width (RBC) [Ratio] 13.2 % Normal 11.7-14.4 [facility] Comment on above: Performed By: #### G FR #### [facility] [address] [place] [address] Hematocrit (Bld) [Volume fraction] 40.6 % Normal 34.1-44.9 [facility] Comment on above: Performed By: #### G FR #### [facility] [address] [place] [address] Hemoglobin (Bld) [Mass/Vol] 13.1 g/dL Normal 11.2-15.7 [facility] Comment on above: Performed By: #### G FR #### [facility] [address] [place] [address] Immature Grans 1.00 % Normal [facility] Comment on above: Performed By: #### G FR #### [facility] [address] [place] [address] Lymphocytes (Bld) [#/Vol] 1.15 thou/cmm Low 1.18-3.74 [facility] Comment on above: Performed By: #### G FR #### [facility] [address] [place] [address] Lymphocytes/100 WBC (Bld) 10.1 % Normal [facility] Comment on above: Performed By: #### G FR #### [facility] [address] [place] [address] MCH (RBC) [Entitic mass] 32.3 pg High 25.6-32.2 [facility] Comment on above: Performed By: #### G FR #### [facility] [address] [place] [address] MCHC (RBC) [Mass/Vol] 32.3 % Normal 31.6-34.8 [facility] Comment on above: Performed By: #### G FR #### [facility] [address] [place] [address] MCV (RBC) [Entitic vol] 100.2 fL High 79.4-94.8 [facility] Comment on above: Performed By: #### G FR #### [facility] [address] [place] [address] Monocytes/100 WBC (Bld) 5.8 % Normal [facility] Comment on above: Performed By: #### G FR #### [facility] [address] [place] [address] Platelet mean volume (Bld) [Entitic vol] 9.8 fL Normal 9.4-12.3 [facility] Comment on above: Performed By: #### G FR #### [facility] [address] [place] [address] Platelets (Bld) [#/Vol] 257 thou/cmm Normal 182-369 [facility] Comment on above: Performed By: #### G FR #### [facility] [address] [place] [address] RBC (Bld) [#/Vol] 4.05 mil/cmm Normal 3.93-5.22 [facility] Comment on above: Performed By: #### G FR #### [facility] [address] [place] [address] RDW SD 49.1 fl High 36.4-46.3 [facility] Comment on above: Performed By: #### G FR #### [facility] [address] [place] [address] Seg Neutrophil 83.0 % Normal [facility] Comment on above: Performed By: #### G FR #### [facility] [address] [place] [address] WBC (Bld) [#/Vol] 11.36 thou/cmm High 3.98-10.04 [facility] Comment on above: Performed By: #### G FR #### [facility] [address] [place] [address] Hepatic Function Panelon Albumin [Mass/Vol] 3.4 g/dL Low 3.9-4.9 [facility] Comment on above: Performed By: #### G FR #### [facility] [address] [place] [address] ALP [Catalytic activity/Vol] 102 U/L Normal 34-123 [facility] Comment on above: Performed By: #### G FR #### [facility] [address] [place], [place] [address] ALT [Catalytic activity/Vol] 23 U/L Normal 7-38 [facility] Comment on above: Performed By: #### G FR #### [facility] [address] [place], [place] [address] AST [Catalytic activity/Vol] 19 U/L Normal 13-35 [facility] Comment on above: Performed By: #### G FR #### [facility] [address] [place], [place] [address] Bilirubin [Mass/Vol] mg/dL Normal 0.0-0.2 [facility] Comment on above: Performed By: #### G FR #### [facility] [address] [place], [place] [address] Bilirubin [Mass/Vol] 0.2 mg/dL Normal 0.2-1.3 [facility] Comment on above: Performed By: #### G FR #### [facility] [address] [place] [address] Protein [Mass/Vol] 5.4 g/dL Low 6.3-8.0 [facility] Comment on above: Performed By: #### G FR #### [facility] [address] [place] [address] IR BLOOD PATCH INJon 05-15-2 020 IR BLOOD PATCH INJ * * *Final Report* * * DATE OF EXAM: Jan 06 2020 3:26PM [facility] 2442 - IR BLOOD PATCH INJ / [...] injection for pain management of spinal headache. Bindery Leadperson: BINTA Transcribe Date/Time: Jan 06 2020 4:05P Dictated by : ERIKA BUNCH MD This examination was interpreted and the report reviewed and electronically signed by: ERIKA BUNCH MD on Jan 06 2020 4:07PM EST Normal [facility] Lipid Profile, Basicon 01-05 Cholesterol [Mass/Vol] 158 mg/dL Normal 0-199 [facility] Comment on above: Result Comment: Tota l Cholesterol < 200 mg/dL, Desirable Total Cholesterol 200 to 239 mg/dL, Borderline high Total Cholesterol > 239 mg/dL, High Performed By: #### U RIN2 #### [address] [address] Cholesterol in HDL [Mass/Vol] 52 mg/dL Normal [facility] Comment on above: Result Comment: Refe rence Range: HDL Cholesterol 40- 59 mg/dL, Acceptable HDL Cholesterol >59 mg/dL, High; Negative risk factor for coronary heart disease HDL Cholesterol <40 mg/dL, Low; Positive risk factor for coronary heart disease Performed By: #### U RIN2 #### [address] [address] Cholesterol in LDL [Mass/Vol] 88 mg/dL Normal 0-99 [facility] Comment on above: Result Comment: LDL Cholesterol < 100 mg/dL, Optimal LDL Cholesterol 100 to 129 mg/dL, Near optimal/above optimal LDL Cholesterol 130 to 159 mg/dL, Borderline high LDL Cholesterol 160 to 189 mg/dL, High LDL Cholesterol > 189 mg/dL, Very high Secondary prevention optimal LDL Cholesterol levels are recommended to be < 70 mg/dL Performed By: #### U RIN2 #### [address] [place] [address] Cholesterol in LDL/Cholesterol in HDL [Mass ratio] 1.69 Normal 0.00-2.53 [facility] Comment on above: Performed By: #### U RIN2 #### [place] [address] Cholesterol.total/Aida sterol in HDL [Mass ratio] 3.04 {ratio} Normal 0.00-5.09 [facility] Comment on above: Performed By: #### U RIN2 #### [place] [address] Non-HDL Cholesterol 106 mg/dL Normal 0-129 [facility] Comment on above: Result Comment: Non [...] mg/dL Performed By: #### U RIN2 #### [place] [address] Triglyceride Blood 91 mg/dL Normal 0-149 [facility] Comment on above: Result Comment: Trig lycerides < 150 mg/dL, Normal Triglycerides 150 to 199 mg/dL, Borderline high Triglycerides 200 to 499 mg/dL, High Triglycerides > 499 mg/dL, Very high Performed By: #### U RIN2 #### [place] [address] VLDL Cholesterol 18 mg/dL Normal 0-29 [facility] Comment on above: Performed By: #### U RIN2 #### [address] [address] Magnesium Bloodon 01-06-2020 Magnesium [Mass/Vol] 2.2 mg/dL Normal 1.7-2.3 [facility] Comment on above: Performed By: #### G FR #### [address] [address] Osmolality Serumon 0 Osmolality [Osmolality] 298 mOsm/kg Normal 276-298 [facility] Comment on above: Performed By: #### U RIN2 #### [facility] [address] [place], [place] [address] Osmolality [Osmolality] 298 mOsm/kg Normal 276-298 [facility] Comment on above: Performed By: #### U RIN2 #### [facility] [address] [place], [place] [address] Osmolality [Osmolality] 303 mOsm/kg High 276-298 [facility] Comment on above: Performed By: #### G FR #### [facility] [address] [place], [place] [address] PLAN OF CAREon 01-06-2020 PLAN OF CARE HNO ID: [id number] Author: Marquis Arredondo Service: Neurology ICU Author Type: Nurse [...] Pt preparing to go for CTH. Normal [facility] PLAN OF CARE HNO ID: [id number] Author: Michelle Talavera Service: Neurology ICU Author Type: Nurse Practitioner Type: Plan of Care Filed: 01/06/2020 6:13 AM Note Text: Repeat caffeine infusion over 2 hours (second dose) due to ongoing symptoms. Normal [facility] PROGRESSon 01-06-2020 PROGRESS HNO ID: [id number] Author: Janeth Valderrama Service: Pain Management Author [...] status post gastric pacemaker presented 01/02 from [place] transfer with intractable back pain, urinary retention and severe bilateral lower extremity pain and spasm. Patient is followed by Dr. Robledo in [place] for pain management; last SI joint injection [...] # Pharmacy Refill Daily Dose* Pymt Type ARTIST'S REPRESENTATIVE 11/11/2019 2 11/11/2019 Gabapentin 300 MG Capsule 90.00 30 Eu Pet [id number] [id number] [place] 09/26/2019 2 09/25/2019 Oxycodone-Acetaminophen 5-325 12.00 3 Al Abby [id number] [facility] ([id number] 0 30.00 [place] 09/19/2019 2 09/19/2019 Oxycodone-Acetaminophen 5-325 15.00 3 Do Kol [id number] [facility] ([id number]) 0 37.50 [place] 08/31/2019 2 08/31/2019 Gabapentin 300 MG Capsule 90.00 30 Ay Bas [id number] [facility] ([id number] [place] 07/15/2019 2 07/15/2019 Gabapentin 300 MG Capsule 90.00 30 Ay Bas [id number] [facility] ([id number] [place] 06/03/2019 2 05/30/2019 Diazepam 5 MG Tablet 10.00 4 To Le [id number] [facility] ([id number]) 0 1.25 LME [place] 06/03/2019 2 05/30/2019 Oxycodone-Acetaminophen 5-325 12.00 3 To Le [id number] [facility] ([id number]) 0 30.00 [place] 06/03/2019 2 06/03/2019 Gabapentin 300 MG Capsule 60.00 20 Je B [id number] [facility] ([id number]) 0 Medicare Current Facility-Administered Medications [...] (COMPAZINE) 10 mg INTRAVENOUS ONCE Kelly (Res) Ojiaku, DO - diazePAM 5 mg injection (VALIUM) [...] 25-50 mcg INTRAVENOUS q 1 H PRN Marquis (Fisher Reef Net) Staudt 50 mcg at 01/06/20 0855 - sodium chloride 0.65 % 2 [place] (AYR, OCEAN) 2 [place] EACH NOSTRIL PRN [place] (Lilian) Samson - NaCl 0.9% 3-5 mL 3-5 mL INTRAVENOUS q 12 H [place] (Lilian) Samson 5 mL at 01/06/20 0821 - dexamethasone sodium phosphate 4 mg injection (DECADRON) 4 mg INTRAVENOUS q 6 H [place] (Lilian) Samson 4 mg at 01/06/20 0625 - dextrose 40 % 15 g 15 g ORAL PRN [place]lyssa (Lilian) Samson Or - glucagon 1 mg injection (GLUCAGEN) 1 mg INTRAMUSCULAR PRN [place] (Lilian) Samson Or - dextrose 50% in water 25 mL syringe 12.5 g INTRAVENOUS PRN [place] (Lilian) Samson - albuterol 2.5 mg /3 mL [...] propionate (FLONASE ALLERGY RELIEF NASAL), Use 1 [place] in the nose twice daily. , Disp: [...] Admitted) 01/03/20 07 - 01/04/20 0659 Shift 2513-2552 8332-9326 8937-5747 24 Hour Total 2997-0045 2247-3131 6274-6132 24 Hour Total INTAKE Shift Total OUTPUT [...] LOAIZA with some nausea. 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 Robledo in [place] after discharge Janeth Valderrama MD [facility] PROGRESS HNO ID: [id number] Author: Sonia Acosta) LILIAN Barros Service: Neurosurgery Author Type: Physician Entry Level Automotive Technician Type: Progress Notes Filed: 01/06/2020 10:24 AM [...] kg/m? O2 Therapy: Nasal Cannula IANDO: Date 01/05/20 07 - 01/06/20 0659 01/06/20 07 - 01/07/20 0659 Shift 0093-9709 5749-2180 2637-0292 24 Hour Total 2408-3300 3113-3240 6246-4544 24 Hour Total INTAKE IV 3125 1220 4345 Volume (mL) (sodium chloride iv bolus 3% (HYPERTONIC)) 300 300 Volume (mL) (NaCl 0.9% 1,000 mL iv bolus) 1000 1000 Volume (mL) (sodium chloride-sodium acetate (50:50) iv infusion 3% (HYPERTONIC)) 391 523 9060 Volume (mL) (mannitol 20% 100 g infusion (OSMITROL)) 500 500 Volume (mL) (caffeine-sodium benzoate 500 mg in NaCl 0.9% 1,000 mL) 1000 1000 Volume (mL) (levETIRAcetam iv piggyback 1,500 mg in NaCl (iso-osmotic) 100 mL (KEPPRA)) 100 100 Volume (mL) (mannitol 20% 50 g infusion (OSMITROL)) 250 250 Irrigants 250 250 Irrigant/Flush Amount In ([REMOVED] Indwelling Urinary Catheter 01/03/[address] [facility] 16 Fr 01/05/20 1051) 250 250 Shift Total 250 3125 1220 4595 OUTPUT Urine 700 1930 1100 3730 Void (ml) 300 300 Urine Not Saved. 1 x 1 x Output ([REMOVED] Indwelling Urinary Catheter 01/03/[address] [facility] 16 Fr 01/05/20 1051) 400 400 Output ( Indwelling Urinary Catheter 01/05/20 1544 Assessment [place] 16 Fr) 1930 1100 3030 # of [...] PRN - sodium chloride 0.65 % 2 [place] (AYR, OCEAN) 2 [place] EACH NOSTRIL PRN - NaCl 0.9% 3-5 [...] OTHER q 8 H Labs: Recent Labs 01/06/2030 01/06/20 0420 01/05/20200401/05/20 1522 01/05/20 1520 NA [...] given - Urinary retention 01/05/2020 - Epilepsy ([facility]) 01/05/2020 - Hyperglycemia 01/05/2020 - Compression of [...] January 06, 2020 TIME: 10:12 AM Pager: [phone] Normal [facility] PROGRESS HNO ID: [id number] Author: Beverly Vora Service: Neurology ICU Author [...] Is Patient Clinically Ready to Transfer to [facility] or SDU?: No Discharge Planning: To be [...] Prophylaxis/Anticoagula nts 01/04/20 0945 pneumatic compression stockings (wy,oh) 01/03/20 0345 vte non-pharmacologic prophylaxis - none indicated (wy,pr) VTE Prophylaxis: Contraindicated possible OR need Plan of care discussed with: RN and Dr Vora SIGNATURE: Michelle Talavera APRN.CNP PATIENT NAME: Ortiz Mason DATE: January 06, 2020 TIME: 6:05 AM PAGER/CONTACT #: [phone] minutes of CCT Attending Note I have personally performed a face to face assessment of the patient and have reviewed the PA/LAUNDRY PRESS OPERATOR note. The patient currently has the [...] - PICC line; d/c femoral Signature: Beverly Vora DO Date: 01/06/2020 Time: 4:13 PM Normal [facility] Phosphorous Bloodon 01-06-20 20 Phosphate [Mass/Vol] 3.8 mg/dL Normal 2.7-4.8 [facility] Comment on above: Performed By: #### G FR #### [place] [address] Protimeon 01-06-2020 INR Coag (PPP) [Relative time] 0.95 {INR} Normal 0.90-1.30 [facility] Comment on above: Result Comment: Isaura min K Antagonist (VKA) Therapeutic Range: INR 2 to 3 (Target INR of 2.5) Note: For patients treated with VKA drugs, such as warfarin, the [place] [employer] 2012 Guideline recommends [...] 2.5 to 3.5 target INR of 3). Guyatt GH, et al. Chest 2012; 141:7S-47S Jose RA, et al. [facility] 2017; 70: 252-289 Performed By: #### U RIN2 #### [place] [address] PT Coag (PPP) [Time] 10.3 s Normal 9.7-13.0 [facility] Comment on above: Performed By: #### U RIN2 #### [place] [address] THERAPY NTon 01-06-2020 THERAPY NT HNO ID: [id number] Author: Kristen CerratoCcc-Systems Manager) FREDA Thomas/PHILIPPE Service: Speech/Swallow Author Type: Speech Language Pathologist Type: Therapy (PT/OT/Speech/Resp) Filed: 01/06/2020 10:18 AM Note Text: SPEECH THERAPY MISSED VISIT SERVICE DATE: 01/06/2020 SERVICE TIME: 1017 to 1017 ROOM: [id number] Attempted Clinical Swallow Evaluation. Patient not seen due to Other: See Comment: RN and Dr. Vora asked to hold due to unable to tolerate sitting up at this point due to swelling in brain. Speech Therapy to re-attempt swallowing evaluation once able to at least tolerate 30 degrees. SIGNATURE: Kristen Thomas CCC-JUMPBASTING ARMHOLE BASTER PATIENT NAME: Ortiz Mason DATE: January 06, 2020 TIME: 10:17 AM Normal [facility] THERAPY NT HNO ID: [id number] Author: Elicia (Otr/LBasilia Rainey Service: Occupational Therapy Author Type: Occupational Therapist Type: Therapy (PT/OT/Speech/Resp) Filed: 01/06/2020 4:18 PM Note Text: OCCUPATIONAL THERAPY MISSED VISIT SERVICE DATE: 01/06/2020 SERVICE TIME: 1005 to 1005 ROOM: [id number] Attempted Evaluation. Patient not seen due to Illness(per RN, unable to tolerate sitting up at this time due to brain swelling ). SIGNATURE: Elicia Rainey OTR/L PATIENT NAME: Ortiz Mason DATE: January 06, 2020 TIME: 10:06 AM [facility] ALLIED HEALTHon 01-05-2020 ALLIED HEALTH HNO ID: [id number] Author: Ha (Student) Celso Yu Service: Spiritual Care Author Type: Student Type: Allied Health Filed: 01/05/2020 1:36 PM Note Text: SPIRITUALCARE Spiritual Care Visit- Brief Note Name: Ortiz Mason Date: January 05, 2020 Notes: Called room and spoke with patient. Prayed with patient. Spiritual care team is available as needed and discussed with patient how to contact us. Director Transportation Signature: Ha Yu To contact the Spiritual Care Department: Please call [phone] or Page the On-Call Director Transportation at pager [phone] Thank you for the opportunity to be of service. This is an electronically created document. IF PRINTED, PLEASE DO NOT REMOVE FROM THE CHART OR MODIFY PRINTED COPY. Normal [facility] ALLIED HEALTH HNO ID: [id number] Author: Augustine Gonzales) Vadim Escoto Service: Radiology Author Type: Notching Machine Operator Type: Allied Health Filed: 01/05/2020 6:44 AM Note Text: Pt has non compatible gastric pacer per RN. MRI cancelled. Normal [facility] HNO ID: [id number] Author: Vadim Baker (Rt) Service: Radiology Author Type: Notching Machine Operator Type: Allied Health Filed: 01/05/2020 6:41 AM Note Text: Called for MRI screening form. Normal [facility] Basic Metabolic Panelon 05-1 Anion gap [Moles/Vol] 9 mmol/L Normal 9-18 [facility] Comment on above: Performed By: #### G FR #### [facility] [address] [place], [place] [address] Calcium [Mass/Vol] 7.8 mg/dL Low 8.5-10.2 [facility] Comment on above: Performed By: #### G FR #### [facility] [address] [place], [place] [address] Chloride [Moles/Vol] 111 mmol/L High 97-105 [facility] Comment on above: Performed By: #### G FR #### [facility] [address] [place], [place] [address] CO2 Blood 25 mmol/L Normal 22-30 [facility] Comment on above: Performed By: #### G FR #### [facility] [address] [place], [place] [address] Creatinine [Mass/Vol] 0.84 mg/dL Normal 0.58-0.96 [facility] Comment on above: Performed By: #### G FR #### [facility] [address] [place], [place] [address] Glucose [Mass/Vol] 105 mg/dL High 74-99 [facility] Comment on above: Result Comment: The [place] Diabetes Association (ADA) provides guidance for cutoff [...] Standards of Medical Care in Diabetes 2016; [place] [employer]. Diabetes Care. 2016;39(Suppl 1). Performed By: #### G FR #### [facility] [address] [place], [place] [address] Potassium [Moles/Vol] 4.2 mmol/L Normal 3.7-5.1 [facility] Comment on above: Performed By: #### G FR #### [facility] [address] [place], [place] [address] Sodium [Moles/Vol] 145 mmol/L High 136-144 [facility] Comment on above: Performed By: #### G FR #### [facility] [address] [place], [place] [address] Urea nitrogen [Mass/Vol] 17 mg/dL Normal 7-21 [facility] Comment on above: Performed By: #### G FR #### [facility] [address] [place], [place] [address] Anion gap [Moles/Vol] 11 mmol/L Normal 9-18 [facility] Comment on above: Performed By: #### C MP #### [facility] [address] [place], [place] [address] Calcium [Mass/Vol] 8.0 mg/dL Low 8.5-10.2 [facility] Comment on above: Performed By: #### C MP #### [facility] [address] [place], [place] [address] Chloride [Moles/Vol] 95 mmol/L Low 97-105 [facility] Comment on above: Performed By: #### C MP #### [facility] [address] [place], [place] [address] CO2 Blood 24 mmol/L Normal 22-30 [facility] Comment on above: Performed By: #### C MP #### [facility] [address] [place], [place] [address] Creatinine [Mass/Vol] 0.79 mg/dL Normal 0.58-0.96 [facility] Comment on above: Performed By: #### C MP #### [facility] [address] [place], [place] [address] Glucose [Mass/Vol] 103 mg/dL High 74-99 [facility] Comment on above: Result Comment: The [place] Diabetes [employer] (ADA) provides guidance for cutoff [...] Standards of Medical Care in Diabetes 2016; [place] [employer]. Diabetes Care. 2016;39(Suppl 1). Performed By: #### C MP #### [facility] [address] [place], [place] [address] Potassium [Moles/Vol] 4.7 mmol/L Normal 3.7-5.1 [facility] Comment on above: Performed By: #### C MP #### [address] [address] Sodium [Moles/Vol] 130 mmol/L Low 136-144 [facility] Comment on above: Performed By: #### C MP #### [facility] [address] [place], [place] [address] Urea nitrogen [Mass/Vol] 18 mg/dL Normal 7-21 [facility] Comment on above: Performed By: #### C MP #### [facility] [address] [place], [place] [address] Anion gap [Moles/Vol] 11 mmol/L Normal 9-18 [facility] Comment on above: Performed By: #### C BC1 #### [facility] [address] [place], [place] [address] Calcium [Mass/Vol] 9.1 mg/dL Normal 8.5-10.2 [facility] Comment on above: Performed By: #### C BC1 #### [facility] [address] [place], [place] [address] Chloride [Moles/Vol] 102 mmol/L Normal 97-105 [facility] Comment on above: Performed By: #### C BC1 #### [place] [address] CO2 Blood 25 mmol/L Normal 22-30 [facility] Comment on above: Performed By: #### C BC1 #### [facility] [address] [place], [place] [address] Creatinine [Mass/Vol] 0.62 mg/dL Normal 0.58-0.96 [facility] Comment on above: Performed By: #### C BC1 #### [facility] [address] [place], [place] [address] Glucose [Mass/Vol] 154 mg/dL High 74-99 [facility] Comment on above: Result Comment: The [place] Diabetes Association (ADA) provides guidance for cutoff [...] Standards of Medical Care in Diabetes 2016; [place] [employer]. Diabetes Care. 2016;39(Suppl 1). Performed By: #### C BC1 #### [facility] [address] [place], [place] [address] Potassium [Moles/Vol] 4.7 mmol/L Normal 3.7-5.1 [facility] Comment on above: Performed By: #### C BC1 #### [facility] [address] [place], [place] [address] Sodium [Moles/Vol] 138 mmol/L Normal 136-144 [facility] Comment on above: Performed By: #### C BC1 #### [facility] [address] [place], [place] [address] Urea nitrogen [Mass/Vol] 15 mg/dL Normal 7-21 [facility] Comment on above: Performed By: #### C BC1 #### [facility] [address] [place], [place] [address] Blood Gas Arterialon 01-04-2 020 Base Excess -1.8 mmol/L Normal -3.0-3.0 [facility] Comment on above: Performed By: #### C MP #### [facility] [address] [place] [address] HCO3 (Bld) [Moles/Vol] 23.4 mmol/L Normal 21.0-28.0 [facility] Comment on above: Performed By: #### C MP #### [facility] [address] [place] [address] O2% Sat Arterial 95.3 % Low 96.0-100.0 [facility] Comment on above: Performed By: #### C MP #### [facility] [address] [place] [address] PCO2 Arterial 43.3 mm Hg Normal 35.0-45.0 [facility] Comment on above: Performed By: #### C MP #### [facility] [address] [place] [address] pH Arterial 7.352 Normal 7.350-7.450 [facility] Comment on above: Performed By: #### C MP #### [facility] [address] [place] [address] PO2 Arterial 81.8 mm Hg Low 83.0-108.0 [facility] Comment on above: Performed By: #### C MP #### [facility] [address] [place] [address] FIO2 21 % Normal [facility] Comment on above: Performed By: #### C MP #### [place] [address] CONSULTon 01-05-2020 CONSULT HNO ID: [id number] Author: Leandra Joiner Jr. Service: Neurology ICU [...] to admission: No Pre-morbid mRS: Premorbid Modified [place] Score: 1 - No significant disability despite [...] propionate (FLONASE ALLERGY RELIEF NASAL), Use 1 [place] in the nose twice daily. , Disp: [...] propionate (FLONASE ALLERGY RELIEF NASAL) Use 1 War[place] in the nose twice daily. omeprazole (PRILOSEC) [...] 05, 2020 TIME: 2:34 PM PAGER/CONTACT #: [phone] [facility] STAFF PHYSICIAN NOTE OF PERSONAL INVOLVEMENT IN CARE I have reviewed the consult note obtained and documented by the physician assistant inventory manager and I personally participated in the garcia [...] weakness that she received intravenous TPA at [facility] once for in the past. In reviewing her records here at [facility] she has had at least [...] such intervention. SIGNATURE: Leandra Joiner MD PAGER: [phone] DATE of SERVICE: January 05, 2020 TIME of SERVICE: 4:59 PM Normal [facility] CONSULT PROGon 01-05-2020 CONSULT PROG HNO ID: [id number] Author: Sonia Ferreira (Lilian) LILIAN Barros Service: Neurosurgery Author Type: Physician Entry Level Automotive Technician Type: Consult Progress Note Filed: 01/06/2020 7:16 [...] (attending on this pt) and Dr. Hare (director of restaurant operations) were both notified following these new developments. 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 Pt was stephan flat and treatment by neurology initiated. No current neurosurgical intervention indicated. Will continue to follow. LILIAN Rodríguez 4:15 PM Normal [facility] CPKon 01-05-2020 CK [Catalytic activity/Vol] 57 U/L Normal 42-196 [facility] Comment on above: Performed By: #### G FR #### [facility] [address] [place] [address] [address] BRAIN ATTACK WO IVCONon 0 01-05-2020 CT BRAIN ATTACK WO IVCON * * *Final Report* * * DATE OF EXAM: Jan 05 2020 2:31PM [facility] 0502 - CT BRAIN ATTACK [...] Dr. Joiner on 01/05/2020 at 14:52. CR_1 Bindery Leadperson: BINTA Transcribe Date/Time: Jan 05 2020 2:35P Dictated by : CLEM OSBORNE MD This examination was interpreted and the report reviewed and electronically signed by: CLEM OSBORNE MD on Jan 05 2020 2:53PM EST CRITICAL!! Critically high [facility] CTA HEAD W IVCONon 0 CTA HEAD W IVCON * * *Final Report* * * DATE OF EXAM: Jan 05 2020 2:31PM [facility] 0022 - CTA HEAD W [...] arterial stenosis in the head or neck. Bindery Leadperson[facility] Transcribe Date/Time: Jan 05 2020 2:55P Dictated by : CLEM OSBORNE MD This examination was interpreted and the report reviewed and electronically signed by: CLEM OSBORNE MD on Jan 05 2020 3:03PM EST Normal [facility] CTA NECK W IVCONon 0 CTA NECK W IVCON * * *Final Report* * * DATE OF EXAM: Jan 05 2020 2:31PM [facility] 0024 - CTA NECK W [...] arterial stenosis in the head or neck. Bindery Leadperson: BINTA Transcribe Date/Time: Jan 05 2020 2:55P Dictated by : CLEM OSBORNE MD This examination was interpreted and the report reviewed and electronically signed by: CLEM OSBORNE MD on Jan 05 2020 3:03PM [facility] [place] operated [facility] Hemogram/Diffon 01-05-2020 Abs Immature Grans 0.12 thou/cmm High 0.00-0.05 [facility] Comment on above: Performed By: #### C MP #### [facility] [address] [place] [address] Abs Neut (ANC) 9.58 thou/cmm High 1.56-6.13 [facility] Comment on above: Performed By: #### C MP #### [place] [address] Abs. Baso 0.02 thou/cmm Normal 0.01-0.08 [facility] Comment on above: Performed By: #### C MP #### [place] [address] Abs. Ciales 0.71 thou/cmm High 0.27-0.70 [facility] Comment on above: Performed By: #### C MP #### [place] [address] Basophils/100 WBC (Bld) 0.2 % Normal [facility] Comment on above: Performed By: #### C MP #### [place] [address] Eosinophils (Bld) [#/Vol] 0.00 thou/cmm Normal 0.00-0.31 [facility] Comment on above: Performed By: #### C MP #### [place] [address] Eosinophils/100 WBC (Bld) 0.0 % Normal [facility] Comment on above: Performed By: #### C MP #### [place] [address] Erythrocyte distribution width (RBC) [Ratio] 13.2 % Normal 11.7-14.4 [facility] Comment on above: Performed By: #### C MP #### [place] [address] Hematocrit (Bld) [Volume fraction] 45.2 % High 34.1-44.9 [facility] Comment on above: Performed By: #### C MP #### [facility] [address] [place] [address] Hemoglobin (Bld) [Mass/Vol] 14.7 g/dL Normal 11.2-15.7 [facility] Comment on above: Performed By: #### C MP #### [facility] [address] [place] [address] Immature Grans 1.10 % Normal [facility] Comment on above: Performed By: #### C MP #### [facility] [address] [place] [address] Lymphocytes (Bld) [#/Vol] 0.77 thou/cmm Low 1.18-3.74 [facility] Comment on above: Performed By: #### C MP #### [facility] [address] [place] [address] Lymphocytes/100 WBC (Bld) 6.9 % Normal [facility] Comment on above: Performed By: #### C MP #### [facility] [address] [place] [address] MCH (RBC) [Entitic mass] 32.5 pg High 25.6-32.2 [facility] Comment on above: Performed By: #### C MP #### [facility] [address] [place] [address] MCHC (RBC) [Mass/Vol] 32.5 % Normal 31.6-34.8 [facility] Comment on above: Performed By: #### C MP #### [facility] [address] [place] [address] MCV (RBC) [Entitic vol] 99.8 fL High 79.4-94.8 [facility] Comment on above: Performed By: #### C MP #### [facility] [address] [place] [address] Monocytes/100 WBC (Bld) 6.3 % Normal [facility] Comment on above: Performed By: #### C MP #### [place] [address] Platelet mean volume (Bld) [Entitic vol] 9.8 fL Normal 9.4-12.3 [facility] Comment on above: Performed By: #### C MP #### [facility] [address] [place] [address] Platelets (Bld) [#/Vol] 301 thou/cmm Normal 182-369 [facility] Comment on above: Performed By: #### C MP #### [place] [address] RBC (Bld) [#/Vol] 4.53 mil/cmm Normal 3.93-5.22 [facility] Comment on above: Performed By: #### C MP #### [place] [address] RDW SD 48.6 fl High 36.4-46.3 [facility] Comment on above: Performed By: #### C MP #### [place] [address] Seg Neutrophil 85.5 % Normal [facility] Comment on above: Performed By: #### C MP #### [place] [address] WBC (Bld) [#/Vol] 11.20 thou/cmm High 3.98-10.04 [facility] Comment on above: Performed By: #### C MP #### [place] [address] Abs Immature Grans 0.11 thou/cmm High 0.00-0.05 [facility] Comment on above: Performed By: #### C BC1 #### [place] [address] Abs Neut (ANC) 11.33 thou/cmm High 1.56-6.13 [facility] Comment on above: Performed By: #### C BC1 #### [place] [address] Abs. Baso 0.01 thou/cmm Normal 0.01-0.08 [facility] Comment on above: Result Comment: Smea r scanned; tech agrees with automated differential Performed By: #### C BC1 #### [facility] [address] [place], [place] [address] Abs. Ciales 0.64 thou/cmm Normal 0.27-0.70 [facility] Comment on above: Performed By: #### C BC1 #### [facility] [address] [place], [place] [address] Basophils/100 WBC (Bld) 0.1 % Normal [facility] Comment on above: Performed By: #### C BC1 #### [facility] [address] [place], [place] [address] Eosinophils (Bld) [#/Vol] 0.00 thou/cmm Normal 0.00-0.31 [facility] Comment on above: Performed By: #### C BC1 #### [facility] [address] [place], [place] [address] Eosinophils/100 WBC (Bld) 0.0 % Normal [facility] Comment on above: Performed By: #### C BC1 #### [facility] [address] [place], [place] [address] Immature Grans 0.80 % Normal [facility] Comment on above: Performed By: #### C BC1 #### [facility] [address] [place], [place] [address] Lymphocytes (Bld) [#/Vol] 1.48 thou/cmm Normal 1.18-3.74 [facility] Comment on above: Performed By: #### C BC1 #### [facility] [address] [place], [place] [address] Lymphocytes/100 WBC (Bld) 10.9 % Normal [facility] Comment on above: Performed By: #### C BC1 #### [facility] [address] [place], [place] [address] Monocytes/100 WBC (Bld) 4.7 % Normal [facility] Comment on above: Performed By: #### C BC1 #### [facility] [address] [place], [place] [address] Seg Neutrophil 83.5 % Normal [facility] Comment on above: Performed By: #### C BC1 #### [facility] [address] [place], [place] [address] Erythrocyte distribution width (RBC) [Ratio] 13.1 % Normal 11.7-14.4 [facility] Comment on above: Performed By: #### C BC1 #### [facility] [address] [place], [place] [address] Hematocrit (Bld) [Volume fraction] 47.0 % High 34.1-44.9 [facility] Comment on above: Performed By: #### C BC1 #### [facility] [address] [place] [address] Hemoglobin (Bld) [Mass/Vol] 15.3 g/dL Normal 11.2-15.7 [facility] Comment on above: Performed By: #### C BC1 #### [facility] [address] [place] [address] MCH (RBC) [Entitic mass] 32.1 pg Normal 25.6-32.2 [facility] Comment on above: Performed By: #### C BC1 #### [facility] [address] [place] [address] MCHC (RBC) [Mass/Vol] 32.6 % Normal 31.6-34.8 [facility] Comment on above: Performed By: #### C BC1 #### [facility] [address] [place] [address] MCV (RBC) [Entitic vol] 98.5 fL High 79.4-94.8 [facility] Comment on above: Performed By: #### C BC1 #### [facility] [address] [place] [address] Platelet mean volume (Bld) [Entitic vol] 9.8 fL Normal 9.4-12.3 [facility] Comment on above: Performed By: #### C BC1 #### [facility] [address] [place], [place] [address] Platelets (Bld) [#/Vol] 352 thou/cmm Normal 182-369 [facility] Comment on above: Performed By: #### C BC1 #### [facility] [address] [place] [address] RBC (Bld) [#/Vol] 4.77 mil/cmm Normal 3.93-5.22 [facility] Comment on above: Performed By: #### C BC1 #### [facility] [address] [place] [address] RDW SD 47.5 fl High 36.4-46.3 [facility] Comment on above: Performed By: #### C BC1 #### [facility] [address] [place] [id number] WBC (Bld) [#/Vol] 13.57 thou/cmm High 3.98-10.04 [facility] Comment on above: Performed By: #### C BC1 #### [facility] [address] [place] [address] Lactic Acidon 01-05-2020 Lactate [Moles/Vol] 1.3 mmol/L Normal 0.5-2.2 [facility] Comment on above: Performed By: #### G FR #### [facility] [address] [place] [address] Lactate [Moles/Vol] 1.5 mmol/L Normal 0.5-2.2 [facility] Comment on above: Performed By: #### C MP #### [facility] [address] [place] [id number] NURSING PROGon 01-05-2020 NURSING PROG HNO ID: [id number] Author: Sneha (Rn) CLIVE Rangel Service: ? Author Type: Registered Nurse Type: Nursing Progress Note Filed: 01/05/2020 2:15 PM Note Text: Nursing Progress Note Patient Name: Ortiz Mason Patient Location: [id number] Daily Note: 2:14 PM patient having seizure like activity. Dr Hernandez at bedside and Ivy Davies NP neuro at bedside. This note was completed by: Sneha Rangel RN [facility] NURSING PROG HNO ID: [id number] Author: Sneha CerratoRn) CLIVE Rangel Service: ? Author Type: Registered Nurse Type: Nursing Progress Note Filed: 01/05/2020 2:12 PM Note Text: Nursing Progress Note Patient Name: Ortiz Mason Patient Location: [place] [address] [address] Daily Note: 1405 cva team called overhead 1410 stroke team assembled with Dr. Hernandez and Ivy Davies NP at bedside BS 117, vitals recorded This note was completed by: Sneha Rangel RN [facility] NURSING PROG HNO ID: [id number] Author: Colleen CerratoRn) CLIVE Sargent Service: Nursing Author Type: Registered Nurse Type: Nursing Progress Note Filed: 01/05/2020 4:08 AM Note Text: Pt still with c/o constipation and feels abdomen more distended. Requesting lactulose message sent to Sound [facility] Osmolality Serumon 0 Osmolality [Osmolality] 308 mOsm/kg High 276-298 [facility] Comment on above: Performed By: #### G FR #### [place] [address] PROGRESSon 01-05-2020 PROGRESS HNO ID: [id number] Author: [place] Davies ([place]) Service: Neurology ICU Author Type: Physician Entry Level Automotive Technician Type: Progress Notes Filed: 01/05/2020 5:32 PM [...] propionate (FLONASE ALLERGY RELIEF NASAL), Use 1 [place] in the nose twice daily. , Disp: [...] Prophylaxis/Anticoagula nts 01/04/20 0945 pneumatic compression stockings ([place]) 01/03/20 0345 vte non-pharmacologic prophylaxis - none indicated ([place]) VTE Prophylaxis: Contraindicated possible LP Plan of care discussed with: Provider, RN, Patient SIGNATURE: ALLYSSA DAVIES PA-C PATIENT NAME: Ortiz Mason DATE: January 05, 2020 TIME: 5:32 PM PAGER/CONTACT #: [phone] [facility] PROGRESS HNO ID: [id number] Author: Ching Horta Service: Hospital Medicine Author [...] as well as stroke team orders Normal [facility] PROGRESS HNO ID: [id number] Author: Janeth Valderrama Service: Pain Management Author [...] status post gastric pacemaker presented 01/02 from [place] transfer with intractable back pain, urinary retention and severe bilateral lower extremity pain and spasm. Patient is followed by Dr. Robledo in [place] for pain management; last SI joint injection [...] # Pharmacy Refill Daily Dose* Pymt Type ARTIST'S REPRESENTATIVE 11/11/2019 2 11/11/2019 Gabapentin 300 MG Capsule 90.00 30 Eu Pet [id number] [facility] [place] 09/26/2019 2 09/25/2019 Oxycodone-Acetaminophen 5-325 12.00 3 Al Abby [id number] [facility] ([facility] 0 30.00 [place] 09/19/2019 2 09/19/2019 Oxycodone-Acetaminophen 5-325 15.00 3 Do Kol [id number] [facility] ([facility]357) 0 37.50 [place] 08/31/2019 2 08/31/2019 Gabapentin 300 MG Capsule 90.00 30 Ay Bas [id number] [facility] ([facility] [place] 07/15/2019 2 07/15/2019 Gabapentin 300 MG Capsule 90.00 30 Ay Bas [id number] [facility] ([facility] [place] 06/03/2019 2 05/30/2019 Diazepam 5 MG Tablet 10.00 4 To Le [id number] [facility] (7357) 0 1.25 LME [place] 06/03/2019 2 05/30/2019 Oxycodone-Acetaminophen 5-325 12.00 3 To Le [id number] [facility] (7357) 0 30.00 [place] 06/03/2019 2 06/03/2019 Gabapentin 300 MG Capsule 60.00 20 Je B [id number] [facility] (7357) 0 Medicare Current Facility-Administered Medications [...] 0841 - sodium chloride 0.65 % 2 Warroad (AYR, OCEAN) 2 [place] EACH NOSTRIL PRN Ching Horta - senna-docusate 8.6-50 mg 2 tablet (SENNA-S) 2 tablet ORAL BID Janeth K Scantling 2 tablet at 01/05/20 0841 - iv contrast (radiology procedure) INTRAVENOUS DIRECTED PRN [facility] [place] - cyclobenzaprine 5 mg tab(s) (FLEXERIL) 5 mg ORAL TID PRN Janeth K Scantling 5 mg at 01/05/20 1144 - melatonin 9 mg tab(s) 9 mg ORAL AT BEDTIME [facility] 9 mg at 01/04/20 1957 - enoxaparin 40 mg injection (LOVENOX) 40 mg SUBCUTANEOUS DAILY [facility] 40 mg at 01/05/20 0841 - NaCl 0.9% 3-5 mL 3-5 mL INTRAVENOUS q 12 H [facility] 3 mL at 01/05/20 0842 - ondansetron 4 mg tab(s) (ZOFRAN) 4 mg ORAL q 6 H PRN [facility] 4 mg at 01/05/20 0841 Or - ondansetron (PF) 4 mg injection (ZOFRAN) 4 mg INTRAVENOUS q 6 H PRN [facility] 4 mg at 01/05/20 0354 - dexamethasone sodium phosphate 4 mg injection (DECADRON) 4 mg INTRAVENOUS q 6 H [facility] 4 mg at 01/05/20 1146 - pantoprazole DR 40 mg tab(s) (PROTONIX) 40 mg ORAL DAILY (6 AM) [facility] 40 mg at 01/05/20 0610 - dextrose 40 % 15 g 15 g ORAL PRN [facility] Or - glucagon 1 mg injection (GLUCAGEN) 1 mg INTRAMUSCULAR PRN [facility] Or - dextrose 50% in water 25 mL syringe 12.5 g INTRAVENOUS PRN [facility] - insulin lispro pen (rapid acting) (HumaLOG KWIKPEN) SUBCUTANEOUS w MEALS [facility] 4 Units at 01/05/20 1145 - albuterol 2.5 mg /3 mL (0.083 %) 2.5 mg (PROVENTIL) 2.5 mg INHALATION q 6 H PRN [facility] - magnesium oxide 400 mg tab(s) [...] propionate (FLONASE ALLERGY RELIEF NASAL), Use 1 [place] in the nose twice daily. , Disp: [...] Admitted) 01/03/20 07 - 01/04/20 0659 Shift [id number] 9175-8836 5206-7710 24 Hour Total 4106-0864 4456-7325 3488-4103 24 Hour Total INTAKE Shift Total OUTPUT [...] Disposition pending Follow-up with Dr. Robledo in [place] after discharge Janeth Valderrama MD [facility] PROGRESS HNO ID: [id number] Author: Ching Horta Service: Hospital Medicine Author Type: Physician Type: Progress Notes Filed: 01/05/2020 12:07 PM Note Text: DEPARTMENT OF HOSPITAL MEDICINE PROGRESS NOTE SERVICE DATE: 01/05/2020 SERVICE TIME: 10:10 AM Hospital Medicine/Primary Attending: Ching Horta, DO NIGHT AND WEEKEND COVERAGE: After 7pm, please call cross cover pager #[phone] Subjective INTERVAL HPI: Patient seen and examined. Thinks leg pain has improved. Still significant on R side but overall better. Complaining of R foot pain with ambulation. Wants the tucker removed-apparently it was put in in [place] ER for concern for urinary retention MEDICATIONS: [...] bowel sounds normally heard, no mass palpable SITE SURVEYOR- decreased sensation to RLE, has pain in [...] 0343 -- 01/04/20 0945 pneumatic compression stockings ([place], [place]) 01/03/20 0345 vte non-pharmacologic prophylaxis - none indicated ([place], [place]) VTE Prophylaxis: VTE prophylaxis appropriate Disposition: To be determined Plan of care discussed with: Provider, RN, Patient SIGNATURE: Ching Horta DO PATIENT NAME: Ortiz Mason DATE: January 05, 2020 TIME: 10:10 AM PAGER/CONTACT #: [phone] Normal [facility] THERAPY NTon 01-05-2020 THERAPY NT HNO ID: [id number] Author: Pita Gandhi Service: Physical Therapy Author Type: Physical Therapist Type: Therapy (PT/OT/Speech/Resp) Filed: 01/05/2020 1:55 PM Note Text: PHYSICAL THERAPY MISSED VISIT SERVICE DATE: 01/05/2020 SERVICE TIME: 1354 to 1354 ROOM: [place] [address] Attempted Evaluation. Patient not seen due to Illness. RN and tech in room, RN stating patient began coughing and O2 sats slightly dropped. Will follow when more appropriate. SIGNATURE: Pita Gandhi PT PATIENT NAME: Ortiz Mason DATE: January 05, 2020 TIME: 1:54 PM Normal [facility] Troponin T, High Sens.on Troponin T, High Sens. <6 Normal 0-11 [facility] Comment on above: Result Comment: Fco ents taking a biotin dose of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 99.1 fL High 79.4-94.8 [facility] Comment on above: Performed By: #### C BC1 #### [facility] [address] [place] [address] Platelet mean volume (Bld) [Entitic vol] 10.4 fL Normal 9.4-12.3 [facility] Comment on above: Performed By: #### C BC1 #### [facility] [address] [place] [address] Platelets (Bld) [#/Vol] 292 thou/cmm Normal 182-369 [facility] Comment on above: Performed By: #### C BC1 #### [facility] [address] [place] [address] RBC (Bld) [#/Vol] 4.51 mil/cmm Normal 3.93-5.22 [facility] [facility] Comment on above: Performed By: #### C BC1 #### [facility] [address] [place] [address] RDW SD 49.0 fl High 36.4-46.3 [facility] Comment on above: Performed By: #### C BC1 #### [facility] [address] [address] WBC (Bld) [#/Vol] 10.75 thou/cmm High 3.98-10.04 [facility] Comment on above: Performed By: #### C BC1 #### [facility] [address] [address] Magnesium Bloodon 01-03-2020 Magnesium [Mass/Vol] 2.2 mg/dL Normal 1.7-2.3 [facility] Comment on above: Performed By: #### M AG #### [facility] [address] [address] PROGRESSon 01-03-2020 PROGRESS HNO ID: [id number] Author: Ivy Yeh Service: Hospital Medicine Author Type: Physician Type: Progress Notes Filed: 01/03/2020 2:16 PM Note Text: Patient seen and examined by lynsey youngblooder in AM. Patient continues to complain of [...] from same date for further details. Normal [facility] US DVT LOWER BILon 0 US DVT LOWER JULI * * *Final Report* * * DATE OF EXAM: Jan 03 2020 3:31PM [facility] 1005 - US DVT LOWER JULI / [...] of the left and right lower extremities. Bindery Leadperson: [facility] Transcribe Date/Time: Jan 03 2020 3:46P Dictated by : CHIKIS BRO MD This examination was interpreted and the report reviewed and electronically signed by: CHIKIS BRO MD on Jan 03 2020 3:47PM EST Normal [facility] Urinalysis Routineon 020 Bacteria LM.HPF (Urine sed) [#/Area] NONE Normal None [facility] Comment on above: Performed By: #### U RIN2 #### [facility] [address] [place], [place] [address] Ep Cells Urine 1.0 /hpf Normal 0.0-5.0 [facility] Comment on above: Performed By: #### U RIN2 #### [facility] [address] [place], [place] [address] Hyaline Cast 0.3 /lpf Normal 0.0-1.0 [facility] Comment on above: Performed By: #### U RIN2 #### [facility] [address] [place], [place] [address] RBC LM.HPF (Urine sed) [#/Area] 2.8 /[HPF] Normal 0.0-5.0 [facility] Comment on above: Performed By: #### U RIN2 #### [facility] [address] [address] WBC LM.HPF (Urine sed) [#/Area] 22.5 /[HPF] High 0.0-5.0 [facility] Comment on above: Performed By: #### U RIN2 #### [facility] [address] [address] Appearance (U) CLEAR Normal [facility] Comment on above: Performed By: #### U RIN2 #### [facility] [address] [place] [address] Bilirubin (U) [Mass/Vol] Negative Normal Negative [facility] Comment on above: Performed By: #### U RIN2 #### [place] [address] Color (U) YELLOW Normal [facility] Comment on above: Performed By: #### U RIN2 #### [place] [address] Glucose Ql (U) Negative Normal Negative [facility] Comment on above: Performed By: #### U RIN2 #### [place] [address] Hemoglobin,Urine SMALL Abnormal Negative [facility] Comment on above: Performed By: #### U RIN2 #### [place] [address] Ketone Urine Negative Normal Negative [facility] Comment on above: Performed By: #### U RIN2 #### [facility] [address] [place] [address] Leukocytes Esterase MODERATE Abnormal Negative [facility] Comment on above: Performed By: #### U RIN2 #### [place] [address] Nitrites Urine Negative Normal Negative [facility] Comment on above: Performed By: #### U RIN2 #### [place] [address] pH (U) 5.5 [pH] Normal 5.0-8.0 [facility] Comment on above: Performed By: #### U RIN2 #### [facility] [address] [place], [place] [address] Protein (U) [Mass/Vol] Negative Normal Negative [facility] Comment on above: Performed By: #### U RIN2 #### [facility] [address] [place], [place] [address] Specific [place], Ur 1.019 Normal 1.005-1.030 [facility] Comment on above: Performed By: #### U RIN2 #### [facility] [address] [place], [place] [address] Urobilinogen,Ur 0.2 EU/dL Normal 0.2-1.0 [facility] Comment on above: Performed By: #### U RIN2 #### [facility] [address] [place] [address] XR LUMBAR 2V FLEX/EXTon 12-22 XR LUMBAR [...] of dynamic instability. Correlate with myelogram results. Bindery Leadperson: [facility] Transcribe Date/Time: Jan 03 2020 8:00P Dictated by : CHIKIS BRO MD This examination was interpreted and the report reviewed and electronically signed by: CHIKIS BRO MD on Jan 03 2020 8:03PM EST Normal [facility] XR LUMBAR 3V AP/LAT/L5-S1on 01-03-2020 XR [...] of dynamic instability. Correlate with myelogram results. Bindery Leadperson[facility] Transcribe Date/Time: Jan 03 2020 8:00P Dictated by : CHIKIS BRO MD This examination was interpreted and the report reviewed and electronically signed by: CHIKIS BRO MD on Jan 03 2020 8:03PM EST Normal [facility] XR MYELOGRAM COMPL SPINE DIF F Arleen 01-03-2020 XR MYELOGRAM COMPL SPINE DIFF * * *Final Report* * * DATE OF EXAM: Jan 03 2020 2:58PM [facility] 0030 - XR MYELOGRAM COMPL SPINE DIFF MD / PROCEDURE REASON: Spinal cord injury [...] needs. Timeout Affirmation (if attending not present): WASH DRILLER and RT present. F) Anesthesia Type: administration [...] guidance was performed in conjunction with the polysomnographic technician. Plane A, Air Kerma: 97.4 mGy Dose Area Product (DAP): 10810.2 mGy*cm Fluoro time: 0:12 min: sec Post-Procedure: [...] procedure was performed by: Reuben Marshall CNP Bindery Leadperson: [facility] Transcribe Date/Time: Jan 03 2020 3:17P Dictated by : REUBEN MARSHALL CNP This examination was interpreted and the report reviewed and electronically signed by: REUBEN MARSHALL CNP on Jan 03 2020 3:18PM EST Normal [facility] Basic Metabolic Panelon 08-25 Anion gap [Moles/Vol] 12 Normal [facility] Comment on above: Performed By: #### B MP3 #### [place] [address] [place] [address] Calcium [Mass/Vol] 8.9 mg/dL Normal 8.4-10.4 [facility] Comment on above: Performed By: #### B MP3 #### [place] [address] [place] [address] CO2 [Moles/Vol] 13 mmol/L Low 22-30 [facility] Comment on above: Performed By: #### B MP3 #### [place] [address] [place] [address] Glucose [Mass/Vol] 91 mg/dL Normal 70-100 [facility] Comment on above: Performed By: #### B MP3 #### [place] [address] [place] [address] Urea nitrogen [Mass/Vol] 8 mg/dL Normal 7-20 [facility] Comment on above: Performed By: #### B MP3 #### [place] [address] [address] [place], [place] Creatinine [Mass/Vol] 0.60 mg/dL Normal 0.52-1.25 [facility] Comment on above: Performed By: #### B MP3 #### [facility] [address] [place], [place] GFR/1.73 sq M predicted among blacks MDRD (S/P/Bld) [Vol rate/Area] mL/min/{1.73_m2} Normal >60 [facility] Comment on above: Performed By: #### B MP3 #### [place] [address] [address] [place], [place] GFR/1.73 sq M predicted among non-blacks MDRD (S/P/Bld) [Vol rate/Area] mL/min/{1.73_m2} Normal >60 [facility] Comment on above: Result Comment: Sour ce- MDRD equation with creatinine calibration to IDMS(NKDEP) eGFR not recommended for drug dose adjustment Performed By: #### B MP3 #### [place] [address] [address] [place], [place] Chloride [Moles/Vol] 112 mmol/L High 98-107 [facility] Comment on above: Performed By: #### B MP3 #### [place] [address] [address] [place], [place] Potassium [Moles/Vol] 4.7 mmol/L Normal 3.5-5.1 [facility] Comment on above: Result Comment: Slig htly hemolysed, interpret with caution. Performed By: #### B MP3 #### [place] [address] [address] [place], [place] Sodium [Moles/Vol] 137 mmol/L Normal 135-145 [facility] Comment on above: Performed By: #### B MP3 #### [address] Basic Metabolic Panelon 01-2 Anion gap [Moles/Vol] 5 Normal [facility] Comment on above: Performed By: #### B MP3 #### [place] [address] [address] [place], [place] Calcium [Mass/Vol] 8.3 mg/dL Low 8.4-10.4 [facility] Comment on above: Performed By: #### B MP3 #### [facility] [address] [place], [place] CO2 [Moles/Vol] 24 mmol/L Normal 22-30 [facility] Comment on above: Performed By: #### B MP3 #### [facility] [address] [place], [place] Glucose [Mass/Vol] 90 mg/dL Normal 70-100 [facility] Comment on above: Performed By: #### B MP3 #### [facility] [address] [place], [place] Urea nitrogen [Mass/Vol] 10 mg/dL Normal 7-20 [facility] Comment on above: Performed By: #### B MP3 #### [facility] [address] [place], [place] Creatinine [Mass/Vol] 0.57 mg/dL Normal 0.52-1.25 [facility] Comment on above: Performed By: #### B MP3 #### [facility] [address] [place], [place] GFR/1.73 sq M predicted among blacks MDRD (S/P/Bld) [Vol rate/Area] mL/min/{1.73_m2} Normal >60 [facility] Comment on above: Performed By: #### B MP3 #### [facility] [address] [place], [place] GFR/1.73 sq M predicted among non-blacks MDRD (S/P/Bld) [Vol rate/Area] mL/min/{1.73_m2} Normal >60 [facility] Comment on above: Result Comment: Sour ce- MDRD equation with creatinine calibration to IDMS(NKDEP) eGFR not recommended for drug dose adjustment Performed By: #### B MP3 #### [facility] [address] [place], [place] Potassium [Moles/Vol] 4.0 mmol/L Normal 3.5-5.1 [facility] Comment on above: Performed By: #### B MP3 #### [facility] [address] [place] [address] Chloride [Moles/Vol] 108 mmol/L High 98-107 [facility] Comment on above: Performed By: #### B MP3 #### [facility] [address] [place] [address] Sodium [Moles/Vol] 137 mmol/L Normal 135-145 [facility] Comment on above: Performed By: #### B MP3 #### [facility] [address] [place] [address] CR Chest Portableon 09-18-19 20 CR Chest Portable Patient Name: ORTIZ MASON Diagnostic Radiology Exam Date/Time 09/18/2019 15:49:54 EST Exam CR Chest Portable Ordering Physician [id number] NICOLE WILKES Accession Number [id number] CPT4 Codes 44295 () Reason For Exam cough Report CHEST [...] Transcribed Date and Time: 09/18/2019 5:00 Normal [facility] Basic Metabolic Panelon 08-25 Calcium [Mass/Vol] 9.2 mg/dL Normal 8.4-10.4 [facility] Comment on above: Performed By: #### H EMDF, BMP3 #### [facility] [address] [place] [address] Glucose [Mass/Vol] 83 mg/dL Normal 70-100 [facility] Comment on above: Performed By: #### H EMDF, BMP3 #### [facility] [address] [place] [address] Urea nitrogen [Mass/Vol] 8 mg/dL Normal 7-20 [facility] Comment on above: Performed By: #### H EMDF, BMP3 #### [facility] [address] [place] [address] Anion gap [Moles/Vol] 10 Normal [facility] Comment on above: Performed By: #### H EMDF, BMP3 #### [facility] [address] [place] [address] CO2 [Moles/Vol] 23 mmol/L Normal 22-30 [facility] Comment on above: Performed By: #### H EMDF, BMP3 #### [facility] [address] [place] [address] Creatinine [Mass/Vol] 0.53 mg/dL Normal 0.52-1.25 [facility] Comment on above: Performed By: #### H EMDF, BMP3 #### [facility] [address] [place] [address] GFR/1.73 sq M predicted among blacks MDRD (S/P/Bld) [Vol rate/Area] mL/min/{1.73_m2} Normal >60 [facility] Comment on above: Performed By: #### H EMDF, BMP3 #### [facility] [address] [place], [place] GFR/1.73 sq M predicted among non-blacks MDRD (S/P/Bld) [Vol rate/Area] mL/min/{1.73_m2} Normal >60 [facility] Comment on above: Result Comment: Sour ce- MDRD equation with creatinine calibration to IDMS(NKDEP) eGFR not recommended for drug dose adjustment Performed By: #### H EMDF, BMP3 #### [facility] [address] [place] [address] Potassium [Moles/Vol] 4.1 mmol/L Normal 3.5-5.1 [facility] Comment on above: Result Comment: Slig htly hemolysed, interpret with caution. Performed By: #### H RUPESH BMP3 #### [place] [address] [address] [place], [place] Chloride [Moles/Vol] 108 mmol/L High 98-107 [facility] Comment on above: Performed By: #### H EMDF BMP3 #### [place] [address] [address] [place], [place] Sodium [Moles/Vol] 141 mmol/L Normal 135-145 [facility] Comment on above: Performed By: #### H RUPESH BMP3 #### [place] [address] [address] [place], [place] Complete Urinalysison 2019 Appearance (U) Clear Normal Clear [facility] Comment on above: Performed By: #### C UA2 #### [place] [address] [address] [place], [place] Bacteria LM.HPF (Urine sed) [#/Area] Negative Normal Negative [facility] Comment on above: Performed By: #### C UA2 #### [place] [address] [address] [place], [place] Bilirubin,Urine Negative Normal Negative [facility] Comment on above: Performed By: #### C UA2 #### [place] [address] [address] [place], [place] Cast, Hyaline Negative Normal Negative [facility] Comment on above: Performed By: #### C UA2 #### [place] [address] [address] [place], [place] Color (U) Yellow Normal Lt. Yellow [facility] Comment on above: Performed By: #### C UA2 #### [place] [address] [address] [place], [place] Glucose Ql (U) Normal Normal Normal (<70) [facility] Comment on above: Performed By: #### C UA2 #### [place] [address] [address] [place], [place] Ketone,Urine Negative Normal Negative [facility] Comment on above: Performed By: #### C UA2 #### [facility] [address] [place], [place] Leukocytes,Urine 25 La/uL Normal Negative [facility] Comment on above: Performed By: #### C UA2 #### [facility] [address] [place], [place] Mucous Threads Few Normal Negative [facility] Comment on above: Performed By: #### C UA2 #### [facility] [address] [place], [place] Nitrites,Urine Negative Normal Negative [facility] Comment on above: Performed By: #### C UA2 #### [place] [address] [address] [place], [place] Occult Blood,Urine 0.06 mg/dL Normal Negative [facility] Comment on above: Performed By: #### C UA2 #### [place] [address] [address] [place], [place] pH (U) 5.0 Normal 5.0-8.0 [facility] Comment on above: Performed By: #### C UA2 #### [place] [address] [address] [place], [place] Protein (U) [Mass/Vol] 20 mg/dL Normal Negative [facility] Comment on above: Performed By: #### C UA2 #### [place] [address] [address] [place], [place] RBC LM.HPF (Urine sed) [#/Area] 6 - 10 Normal 0-2 [facility] Comment on above: Performed By: #### C UA2 #### [place] [address] [address] [place], [place] Specific [place],Urine 1.021 Normal 1.005-1.030 [facility] Comment on above: Performed By: #### C UA2 #### [place] [address] [address] [place], [place] Squamous Epithelial 0 - 2 Normal 3-5 [facility] Comment on above: Performed By: #### C UA2 #### [place] [address] [address] [place], [place] Urobilinogen,Urine Normal Normal Normal (0-1) [facility] Comment on above: Performed By: #### C UA2 #### [address] WBC LM.HPF (Urine sed) [#/Area] 3 - 5 Normal 0-5 [facility] Comment on above: Performed By: #### C UA2 #### [address] Hemogram w/ Autodiffon 09-17 Abs Baso Cnt 0.0 10*3/uL Normal 0.0-0.2 [facility] Comment on above: Performed By: #### H RUPESH BMP3 #### [address] Abs Neutrophile Cnt 5.0 10*3/uL Normal 1.8-7.0 [facility] Comment on above: Performed By: #### H RUPESH BMP3 #### [address] Basophils/100 WBC (Bld) 0.6 % Normal 0.0-2.0 [facility] Comment on above: Performed By: #### H RUPESH BMP3 #### [address] Eosinophils (Bld) [#/Vol] 0.1 10*3/uL Normal 0.0-0.5 [facility] Comment on above: Performed By: #### H RUPEHS BMP3 #### [address] Eosinophils/100 WBC (Bld) 0.8 % Low 1.0-6.0 [facility] Comment on above: Performed By: #### H RUPESH BMP3 #### [address] Erythrocyte distribution width (RBC) [Ratio] 13.5 % Normal 11.5-14.5 [facility] Comment on above: Performed By: #### H RUPESH BMP3 #### [address] [place], [place] Granulocytes/100 WBC (Bld) 60.0 % Normal 40.0-80.0 [facility] Comment on above: Performed By: #### H EMDEdwin, BMP3 #### [place] [address] [address] [place], [place] Hematocrit (Bld) [Volume fraction] 43.4 % Normal 35.0-47.0 [facility] Comment on above: Performed By: #### H EMDEdwin, BMP3 #### [place] [address] [address] [place], [place] Hemoglobin (Bld) [Mass/Vol] 14.6 g/dL Normal 11.7-16.0 [facility] Comment on above: Performed By: #### H EMDEdwin, BMP3 #### [address] Lymphocytes (Bld) [#/Vol] 2.7 10*3/uL Normal 1.0-4.3 [facility] Comment on above: Performed By: #### H EMDF, BMP3 #### [address] [place] [address] [place], [place] Lymphocytes/100 WBC (Bld) 32.3 % Normal 20.0-40.0 [facility] Comment on above: Performed By: #### H EMDF, BMP3 #### [address] [place] [address] [place], [place] MCH (RBC) [Entitic mass] 32.4 pg Normal 26.0-34.0 [facility] Comment on above: Performed By: #### H EMDF, BMP3 #### [place] [address] [address] [place], [place] MCHC (RBC) [Mass/Vol] 33.7 % Normal 32.0-36.0 [facility] Comment on above: Performed By: #### H EMDF, BMP3 #### [address] [place] [address] [place], [place] MCV (RBC) [Entitic vol] 96.1 fL Normal 79.0-98.0 [facility] Comment on above: Performed By: #### H EMDF, BMP3 #### [facility] [address] [place], [place] Monocytes (Bld) [#/Vol] 0.5 10*3/uL Normal 0.0-0.8 [facility] Comment on above: Performed By: #### H EMDF, BMP3 #### [facility] [address] [place], [place] Monocytes/100 WBC (Bld) 6.3 % Normal 2.0-10.0 [facility] Comment on above: Performed By: #### H EMDF, BMP3 #### [facility] [address] [place], [place] Platelet mean volume (Bld) [Entitic vol] 8.8 fL Normal 7.4-10.4 [facility] Comment on above: Performed By: #### H EMDF, BMP3 #### [facility] [address] [place], [place] Platelets (Bld) [#/Vol] 284 10*3/uL Normal 140-440 [facility] Comment on above: Performed By: #### H EMDF, BMP3 #### [facility] [address] [place], [place] RBC (Bld) [#/Vol] 4.52 10*6/uL Normal 3.80-5.20 [facility] Comment on above: Performed By: #### H EMDF, BMP3 #### [facility] [address] [place], [place] WBC (Bld) [#/Vol] 8.3 10*3/uL Normal 3.6-10.7 [facility] Comment on above: Performed By: #### H EMDF, BMP3 #### [facility] [address] [place], [place] Basic Metabolic Panelon 01-2 Anion gap [Moles/Vol] 8 Normal [facility] Comment on above: Performed By: #### H EMDF, BMP3 #### [facility] [address] [place] [address] Calcium [Mass/Vol] 10.0 mg/dL Normal 8.4-10.4 [facility] Comment on above: Performed By: #### H RUPESH BMP3 #### [facility] [address] [place] [address] CO2 [Moles/Vol] 27 mmol/L Normal 22-30 [facility] Comment on above: Performed By: #### H RUPESH BMP3 #### [facility] [address] [place] [address] Glucose [Mass/Vol] 87 mg/dL Normal 70-100 [facility] Comment on above: Performed By: #### H RUPESH BMP3 #### [facility] [address] [place] [address] Urea nitrogen [Mass/Vol] 13 mg/dL Normal 7-20 [facility] Comment on above: Performed By: #### Krystyna GODDARD BMP3 #### [facility] [address] [place] [address] Creatinine [Mass/Vol] 0.73 mg/dL Normal 0.52-1.25 [facility] Comment on above: Performed By: #### H RUPESH BMP3 #### [facility] [address] [place] [address] GFR/1.73 sq M predicted among blacks MDRD (S/P/Bld) [Vol rate/Area] mL/min/{1.73_m2} Normal >60 [facility] Comment on above: Performed By: #### H RUPESH BMP3 #### [facility] [address] [place] [address] GFR/1.73 sq M predicted among non-blacks MDRD (S/P/Bld) [Vol rate/Area] mL/min/{1.73_m2} Normal >60 [facility] Comment on above: Result Comment: Sour ce- MDRD equation with creatinine calibration to IDMS(NKDEP) eGFR not recommended for drug dose adjustment Performed By: #### H RUPESH, BMP3 #### [facility] [address] [place] [address] Chloride [Moles/Vol] 105 mmol/L Normal 98-107 [facility] Comment on above: Performed By: #### H EMDF, BMP3 #### [facility] [address] [place] [address] Potassium [Moles/Vol] 5.1 mmol/L Normal 3.5-5.1 [facility] Comment on above: Performed By: #### H EMDF, BMP3 #### [facility] [address] [place] [address] Sodium [Moles/Vol] 141 mmol/L Normal 135-145 [facility] Comment on above: Performed By: #### H EMDF, BMP3 #### [facility] [address] [place] [address] Basic Metabolic PanelOrdered By: Ari Sotomayor on 09-13-2019 Anion gap [Moles/Vol] 8 mmol/L [facility] Work Phone: [phone] Calcium [Mass/Vol] 10.0 mg/dL 8.4 - 10. 4 mg/dL [facility] Work Phone: Chloride [Moles/Vol] 105 mmol/L 98 - 10 7 mmol/L [facility] Work Phone: CO2 [Moles/Vol] 27 mmol/L 22 - 30 mmol/L [facility] Work Phone: Creatinine [Mass/Vol] 0.73 mg/dL 0.52 - 1.25 mg/dL [facility] Work Phone: EGFR IF NonAfrican Somali >60.0 >60 mL/min [facility] Work Phone: Comment on above: Source- MDRD equatio n with creatinine calibration to IDMS(NKDEP) eGFR not recommended for drug dose adjustment GFR/1.73 sq M.predicted among blacks MDRD (S/P/Bld) [Vol rate/Area] mL/min/{1.73_m2} >60 mL/min [facility] Work Phone: Glucose [Mass/Vol] 87 mg/dL 70 - 100 mg/dL [facility] Work Phone: Potassium [Moles/Vol] 5.1 mmol/L 3.5 - 5.1 mmol/L [facility] Work Phone: Sodium [Moles/Vol] 141 mmol/L 135 - 145 mmol/L [facility] Work Phone: Urea nitrogen [Mass/Vol] 13 mg/dL 7 - 20 mg/dL [facility] Work Phone: Test Performed by [facility] [place] , [place] [address] [facility] Work Phone: CBC Auto DifferentialOrdered By: Ari Sotomayor on 09-13-2019 Absolute Baso # 0.1 10*3/uL 0 - 0.2 10*3/uL [facility] Work Phone: Absolute Neut # 4.2 10*3/uL 1.8 - 7 10*3/uL [facility] Work Phone: Basophils/100 WBC (Bld) 0.8 % 0 - 2 % [facility] Work Phone: Eosinophils (Bld) [#/Vol] 0.1 10*3/uL 0 - 0.5 10*3/uL [facility] Work Phone: Eosinophils/100 WBC (Bld) 0.9 % Low 1 - 6 % [facility] Work Phone: Erythrocyte distribution width (RBC) [Ratio] [...] of laboratory results Abnormal [facility] Work Phone: Lymphocytes (Bld) [#/Vol] 2.2 10*3/uL 1 - 4.3 10*3/uL [facility] Work Phone: Lymphocytes/100 WBC (Bld) 31.2 % 20 - 40 % [facility] Work Phone: 1 MCH (RBC) [Entitic mass] 32.4 pg 26 - 34 pg [facility] Work Phone: 1 MCHC 33.4 % 32 - 36 % [facility] Work Phone: 1 MCV (RBC) [Entitic vol] 97.0 fL 79 - 98 fL [facility] Work Phone: 1 Monocytes (Bld) [#/Vol] 0.6 10*3/uL 0 - 0.8 10*3/uL [facility] Work Phone: 1 Monocytes/100 WBC (Bld) 8.3 % 2 - 10 % [facility] Work Phone: Platelet mean volume (Bld) [Entitic vol] 7.9 fL 7.4 - 10.4 fL [facility] Work Phone: Platelets (Bld) [#/Vol] 337 10*3/uL 140 - 440 10*3/uL [facility] Work Phone: 1 RBC (Bld) [#/Vol] 5.14 10*6/uL 3.8 - 5.2 10*6/uL [facility] Work Phone: WBC (Bld) [#/Vol] 7.1 10*3/uL 3.6 - 10.7 10*3/uL [facility] Work Phone: Test Performed by [facility], [address] [place] [address] [address] Work Phone: CT Abdomen Pelvis Wo Contras tOrdered By: Ari Sotomayor on 09-13-2019 Patient Name: ORTIZ MASON ---CT--- Exam Date/Time 09/13/2019 13:43:[address] Abdomen/Pelvis (No PO, No IV) Ordering Physician DO SOTOMAYOR PAUL E. Accession Number [id number] CPT4 Codes 98462 (CT Abdomen/Pelvis (No PO, No IV)) Reason [...] Time: 09/13/2019 1:57 [facility] Work Phone: [facility] From [facility] - 09/13/2019 1:57 PM EST Patient Name: ORTIZ MASON ---CT--- Exam Date/Time 09/13/2019 13:43:[address] Abdomen/Pelvis (No PO, No IV) Ordering Physician DO SOTOMAYOR PAUL E. Accession Number [id number] CPT4 Codes 58623 (CT Abdomen/Pelvis (No PO, No IV)) Reason [...] Physician DO SOTOMAYOR PAUL E. Accession Number [id number] CPT4 Codes 08548 (CT Abdomen/Pelvis (No PO, No IV)) Reason [...] Transcribed Date and Time: 09/13/2019 1:57 Normal [facility] Hemogram w/ Autodiffon 09-13 Abs Baso Cnt 0.1 10*3/uL Normal 0.0-0.2 [facility] Comment on above: Performed By: #### H TOBY GODDARD3 #### [facility] [address] [place] [address] Abs Neutrophile Cnt 4.2 10*3/uL Normal 1.8-7.0 [facility] Comment on above: Performed By: #### H EMDF, BMP3 #### [facility] [address] [place] [address] Basophils/100 WBC (Bld) 0.8 % Normal 0.0-2.0 [facility] Comment on above: Performed By: #### H EMDF, BMP3 #### [facility] [address] [place] [address] Eosinophils (Bld) [#/Vol] 0.1 10*3/uL Normal 0.0-0.5 [facility] Comment on above: Performed By: #### H EMDF, BMP3 #### [facility] [address] [place] [address] Eosinophils/100 WBC (Bld) 0.9 % Low 1.0-6.0 [facility] Comment on above: Performed By: #### H EMDF, BMP3 #### [facility] [address] [place] [address] Erythrocyte distribution width (RBC) [Ratio] 13.7 % Normal 11.5-14.5 [facility] Comment on above: Performed By: #### H EMDF, BMP3 #### [facility] [address] [place] [address] Granulocytes/100 WBC (Bld) 58.8 % Normal 40.0-80.0 [facility] Comment on above: Performed By: #### H EMDF, BMP3 #### [facility] [address] [place] [address] Hematocrit (Bld) [Volume fraction] 49.8 % High 35.0-47.0 [facility] Comment on above: Performed By: #### H EMDF, BMP3 #### [facility] [address] [place] [address] Hemoglobin (Bld) [Mass/Vol] 16.6 g/dL High 11.7-16.0 [facility] Comment on above: Performed By: #### H EMDF, BMP3 #### [facility] [address] [place] [address] Lymphocytes (Bld) [#/Vol] 2.2 10*3/uL Normal 1.0-4.3 [facility] Comment on above: Performed By: #### H RUPESH BMP3 #### [facility] [address] [place] [address] Lymphocytes/100 WBC (Bld) 31.2 % Normal 20.0-40.0 [facility] Comment on above: Performed By: #### H RUPESH BMP3 #### [facility] [address] [place] [address] MCH (RBC) [Entitic mass] 32.4 pg Normal 26.0-34.0 [facility] Comment on above: Performed By: #### H RUPESH BMP3 #### [facility] [address] [place] [address] MCHC (RBC) [Mass/Vol] 33.4 % Normal 32.0-36.0 [facility] Comment on above: Performed By: #### H RUPESH BMP3 #### [facility] [address] [place] [place] [address] MCV (RBC) [Entitic vol] 97.0 fL Normal 79.0-98.0 [facility] Comment on above: Performed By: #### H RUPESH BMP3 #### [facility] [address] [place] [address] Monocytes (Bld) [#/Vol] 0.6 10*3/uL Normal 0.0-0.8 [facility] Comment on above: Performed By: #### H RUPESH BMP3 #### [facility] [address] [place] [address] Monocytes/100 WBC (Bld) 8.3 % Normal 2.0-10.0 [facility] Comment on above: Performed By: #### H RUPESH BMP3 #### [facility] [address] [place] [address] Platelet mean volume (Bld) [Entitic vol] 7.9 fL Normal 7.4-10.4 [facility] Comment on above: Performed By: #### H RUPESH BMP3 #### [facility] [address] [place] [address] Platelets (Bld) [#/Vol] 337 10*3/uL Normal 140-440 [facility] Comment on above: Performed By: #### H RUPESH BMP3 #### [facility] [address] [place] [address] RBC (Bld) [#/Vol] 5.14 10*6/uL Normal 3.80-5.20 [facility] Comment on above: Performed By: #### H RUPESH, BMP3 #### [facility] [address] [place] [address] WBC (Bld) [#/Vol] 7.1 10*3/uL Normal 3.6-10.7 [facility] Comment on above: Performed By: #### H RUPESH BMP3 #### [facility] [address] [place] [address] Gastrointestinal Panel by FERNANDO Le 05-13-2019 Gastrointestinal PCR Panel NEGATIVE: No targets were detected by the [employer] Gastrointestinal PCR Panel. The [employer] Gastrointestinal PCR [...] the assay can be ordered separately with [facility] ([id number]). [place], [place] Test Performed by [facility], [address] [place] [id number] Specimen Source Comment:Stool [place], [place] Basic Metabolic Panelon 04-24 Anion gap [Moles/Vol] 9 mmol/L [place], [place] Calcium [Mass/Vol] 9.5 mg/dL 8.4 - 10. 4 mg/dL [place] Chloride [Moles/Vol] 108 mmol/L High 98 - 10 7 mmol/L [place] CO2 [Moles/Vol] 25 mmol/L 22 - 30 mmol/L [place] Creatinine [Mass/Vol] 0.61 mg/dL 0.52 - 1.25 mg/dL [place] EGFR IF NonAfrican Somali >60.0 >60 mL/min [place] Comment on above: Source- MDRD equatio n with creatinine calibration to IDMS(NKDEP) eGFR not recommended for drug dose adjustment GFR/1.73 sq M predicted among blacks MDRD (S/P/Bld) [Vol rate/Area] mL/min/{1.73_m2} >60 mL/min [place] Glucose [Mass/Vol] 95 mg/dL 70 - 100 mg/dL [place] Interpretation and review of laboratory results Abnormal [place] Potassium [Moles/Vol] 4.2 mmol/L 3.5 - 5.1 mmol/L [place] Sodium [Moles/Vol] 142 mmol/L 135 - 145 mmol/L [place] Urea nitrogen [Mass/Vol] 10 mg/dL 7 - 20 mg/dL [place] C-Reactive Proteinon 019 CRP [Mass/Vol] 6 mg/L 0 - 6 mg/L [place] Comment on above: . Hemogram (CBC) w/Auto Diffon 05-12-2019 Absolute Baso # 0.1 10*3/uL 0 - 0.2 10*3/uL [place] Absolute Neut # 4.0 10*3/uL 1.8 - 7 10*3/uL [place] Basophils/100 WBC (Bld) 1.3 % 0 - 2 % [place] Eosinophils (Bld) [#/Vol] 0.1 10*3/uL 0 - 0.5 10*3/uL [place] Eosinophils/100 WBC (Bld) 1.3 % 1 - 6 % [place] Erythrocyte distribution width (RBC) [Ratio] 13.6 % 11.5 - 14.5 % [place] Granulocytes/100 WBC (Bld) 51.3 % 40 - 80 % [place] Hematocrit (Bld) [Volume fraction] 43.6 % 35 - 47 % [place] Hemoglobin (Bld) [Mass/Vol] 15.1 g/dL 11.7 - 16 g/dL [place] Lymphocytes (Bld) [#/Vol] 3.0 10*3/uL 1 - 4.3 10*3/uL [place] Lymphocytes/100 WBC (Bld) 38.2 % 20 - 40 % [place] MCH (RBC) [Entitic mass] 31.8 pg 26 - 34 pg [place] MCHC (RBC) [Mass/Vol] 34.5 % 32 - 36 % [place] MCV (RBC) [Entitic vol] 92.1 fL 79 - 98 fL [place], [place] Monocytes (Bld) [#/Vol] 0.6 10*3/uL 0 - 0.8 10*3/uL [place] Monocytes/100 WBC (Bld) 7.9 % 2 - 10 % [place] Platelet mean volume (Bld) [Entitic vol] 8.5 fL 7.4 - 10.4 fL [place] Platelets (Bld) [#/Vol] 281 10*3/uL 140 - 440 10*3/uL [place] RBC (Bld) [#/Vol] 4.74 10*6/uL 3.8 - 5.2 10*6/uL [place] WBC (Bld) [#/Vol] 7.9 10*3/uL 3.6 - 10.7 10*3/uL [place] Test Performed by [address] [address] [place] Otheron 05-12-2019 Test Performed by [address] [address] [place] Protime-INRon 05-12-2019 INR Coag (PPP) [Relative time] 1.0 {INR} [place] Comment on above: Recommended Anticoag ulant [...] [Time] 10.2 s 9 - 12 s [place], [place] Comment on above: . Test Performed by [id number] [place] [address] Sedimentation Rateon 019 Sed Rate 2 mm/h 0 - 20 mm/h [place] Test Performed by [id number] [place] [address] XR HIP LEFT (2-3 VIEWS)on [facility], [facility] Incoming Radiology Results From [facility] - 05/12/2019 11:11 PM EDT Patient Name: ORTIZ MASON ---Diagnostic Radiology--- Exam Date/Time 05/12/2019 23:05:44 EDT Exam CR Hip w/ Pelvis 2 or 3 Views Left n Ordering Physician [id number] -BEVERLY PHILLIPS Accession Number [id number] CPT4 Codes 08327 () Reason For Exam pain Report PELVIS [...] 2. Postsurgical change. Report Dictated on Workstation: [facility] --- Final --- Dictated: 05/12/2019 11:07 pm Dictating Physician: MD VALLEJO WENDELL Signed Date and Time: 05/12/2019 11:10 pm Signed by: MD VALLEJO WENDELL Transcribed Date and Time: 05/12/2019 11:07 [place] Patient Name: ORTIZ MASON ---Diagnostic Radiology--- Exam Date/Time 05/12/2019 23:05:44 EDT Exam CR Hip w/ Pelvis 2 or 3 Views Left n Ordering Physician BEVERLY GARCIA Accession Number [id number] CPT4 Codes 56735 () Reason For Exam pain Report PELVIS [...] WENDELL Transcribed Date and Time: 05/12/2019 11:07 [place] XR LUMBAR SPINE (2-3 VIEWS)o n 05-12-2019 [facility] Incoming Radiology Results From [facility] - 05/12/2019 11:17 PM EDT Patient Name: ORTIZ MASON ---Diagnostic Radiology--- Exam Date/Time 05/12/2019 23:06:10 EDT Exam CR Spine Lumbosacral 2 or 3 Views Ordering Physician BEVERLY GARCIA Accession Number [id number] CPT4 Codes 30564 () Reason For Exam pain flexion and [...] and degenerative change. Report Dictated on Workstation: [employer] --- Final --- Dictated: 05/12/2019 11:12 pm Dictating Physician: MD VALLEJO WENDELL Signed Date and Time: 05/12/2019 11:16 pm Signed by: MD VALLEJO WENDELL Transcribed Date and Time: 05/12/2019 11:12 [place] Patient Name: ORTIZ MASON ---Diagnostic Radiology--- Exam Date/Time 05/12/2019 23:06:10 EDT Exam CR Spine Lumbosacral 2 or 3 Views Ordering Physician [id number] BEVERLY CASON Accession Number [id number] CPT4 Codes 70096 () Reason For Exam pain flexion and [...] and degenerative change. Report Dictated on Workstation: [employer] --- Final --- Dictated: 05/12/2019 11:12 pm Dictating Physician: MD VALLEJO WENDELL Signed Date and Time: 05/12/2019 11:16 pm Signed by: MD VALLEJO WENDELL Transcribed Date and Time: 05/12/2019 11:12 [place] [facility] Incoming Radiology Results From [facility] - 05/12/2019 9:21 PM EDT Patient Name: ORTIZ MASON ---Diagnostic Radiology--- Exam Date/Time 05/12/2019 21:15:55 EDT Exam CR Spine Lumbosacral 2 or 3 Views Ordering Physician LUIS ANGEL MURO Accession Number [id number] CPT4 Codes 19701 () Reason For Exam lumbar pain, hx [...] NICHOLAS Transcribed Date and Time: 05/12/2019 9:16 [place] Patient Name: ORTIZ MASON ---Diagnostic Radiology--- Exam Date/Time 05/12/2019 21:15:55 EDT Exam CR Spine Lumbosacral 2 or 3 Views Ordering Physician LUIS ANGEL MURO Accession Number [id number] CPT4 Codes 59406 () Reason For Exam lumbar pain, hx [...] NICHOLAS Transcribed Date and Time: 05/12/2019 9:16 [place] COVID-19 virus antigen assay SARS-CoV-2 (COVID-19) Ag IA.rapid Ql (Resp) [facility] [place] [facility] Work Phone: No Panel Information Influenza Types A,B Direct FA (CRAIG) [facility] [place] [facility] Work Phone: Vital Signs Date Time Vital Sign Value Performing Clinician Facility 04-17-2025 13:19-0400 Heart rate 91 /min Dr. Amandeep Loredo DO Work Phone: [facility] [place] [facility] 04-17-2025 13:19-0400 Respiratory rate 14 /min Dr. Amandeep Loredo DO Work Phone: [facility] [place] [facility] 04-17-2025 09:21-0400 Body temperature 98.1 [degF] Dr. Amandeep Loredo DO Work Phone: [facility] [place] [facility] 04-17-2025 09:21-0400 Diastolic blood pressure 79 mm[Hg] Dr. Amandeep Loredo DO Work Phone: [facility] [place] [facility] 04-17-2025 09:21-0400 SaO2% (BldA) [Mass fraction] 94 % Dr. Amandeep Loredo DO Work Phone: [facility] [place] [facility] 04-17-2025 09:21-0400 Systolic blood pressure 141 mm[Hg] Dr. Amandeep Loredo DO Work Phone: [facility] [place] [facility] 04-17-2025 06:47-0400 Inhaled oxygen flow rate 2 L/min Dr. Amandeep Loredo DO Work Phone: [facility] [place] [facility] 04-15-2025 19:52-0400 Body height 175.[address] Amandeep Loredo DO Work Phone: [facility] [place] [facility] 04-15-2025 19:52-0400 Body mass index (BMI) [Ratio] 26.6 kg/m2 Dr. Amandeep Loredo DO Work Phone: [facility] [place] [facility] 04-15-2025 19:52-0400 Body weight 81.[address] Amandeep Loredo DO Work Phone: [facility] [place] [facility] 04-14-2025 09:15-0400 Body temperature 98.4 [degF] Dr. Amandeep Loredo DO Work Phone: [facility] [place] [facility] 04-14-2025 09:15-0400 Diastolic blood pressure 82 mm[Hg] Dr. Amandeep Loredo DO Work Phone: [facility] [place] [facility] 04-14-2025 09:15-0400 Heart rate 66 /min Dr. Amandeep Loredo DO Work Phone: [facility] [place] [facility] 04-14-2025 09:15-0400 Respiratory rate 16 /min Dr. Amandeep Loredo DO Work Phone: [facility] [place] [facility] 04-14-2025 09:15-0400 SaO2% (BldA) [Mass fraction] 95 % Dr. Amandeep Loredo DO Work Phone: [facility] [place] [facility] 04-14-2025 09:15-0400 Systolic blood pressure 138 mm[Hg] Dr. Amandeep Loredo DO Work Phone: [facility] [place] [facility] 04-14-2025 07:39-0400 Body mass index (BMI) [Ratio] 28 kg/m2 Dr. Amandeep Loredo DO Work Phone: [facility] [place] [facility] 04-14-2025 07:39-0400 Body weight [address] Amandeep Loredo DO Work Phone: [facility] [place] [facility] 04-14-2025 07:36-0400 Body height 175.[address] Amandeep Loredo DO Work Phone: [facility] [place] [facility] 03-14-2025 15:50-0400 Body temperature 97.5 [degF] Dr. Amandeep Loredo DO Work Phone: [facility] [place] [facility] 03-14-2025 15:50-0400 Diastolic blood pressure 83 mm[Hg] Dr. Amandeep Loredo DO Work Phone: [facility] [place] [facility] 03-14-2025 15:50-0400 Heart rate 70 /min Dr. Amandeep Loredo DO Work Phone: [facility] [place] [facility] 03-14-2025 15:50-0400 Respiratory rate 16 /min Dr. Amandeep Loredo DO Work Phone: [facility] [place] [facility] 03-14-2025 15:50-0400 SaO2% (BldA) [Mass fraction] 99 % Dr. Amandeep Loredo DO Work Phone: [facility] [place] [facility] 03-14-2025 15:50-0400 Systolic blood pressure 117 mm[Hg] Dr. Amandeep Loredo DO Work Phone: [facility] [place] [facility] 03-14-2025 13:58-0400 Body height 175.[address] Amandeep Loredo DO Work Phone: [facility] [place] [facility] 03-14-2025 13:58-0400 Body mass index (BMI) [Ratio] 26.9 kg/m2 Dr. Amandeep Loredo DO Work Phone: [facility] [place] [facility] 03-14-2025 13:58-0400 Body weight 82.[address] Amandeep Loredo DO Work Phone: [facility] [place] [facility] 01-05-2025 19:49-0400 Heart rate 88 /min Dr. Amandeep Loredo DO Work Phone: [facility] [place] [facility] 01-05-2025 19:49-0400 Respiratory rate 18 /min Dr. Amandeep Loredo DO Work Phone: [facility] [place] [facility] 01-05-2025 19:49-0400 SaO2% (BldA) [Mass fraction] 100 % Dr. Amandeep Loredo DO Work Phone: [facility] [place] [facility] 01-05-2025 19:48-0400 Body mass index (BMI) [Ratio] 28.9 kg/m2 Dr. Amandeep Loredo DO Work Phone: [facility] [place] [facility] 01-05-2025 19:48-0400 Body weight 88.[address] Amandeep Loredo DO Work Phone: [facility] [place] [facility] 01-05-2025 18:20-0400 Diastolic blood pressure 73 mm[Hg] Dr. Amandeep Loredo DO Work Phone: [facility] [place] [facility] 01-05-2025 18:20-0400 Systolic blood pressure 110 mm[Hg] Dr. Amandeep Loredo DO Work Phone: [facility] [place] [facility] 01-05-2025 16:57-0400 Body height 175.[address] Amandeep Loredo DO Work Phone: [facility] [place] [facility] 01-05-2025 16:57-0400 Body temperature 96.9 [degF] Dr. Amandeep Loredo DO Work Phone: [facility] [place] [facility] 10-21-2024 00:35-0500 Body temperature 98.1 [degF] Dr. Amandeep Loredo DO Work Phone: [facility] [place] [facility] 10-21-2024 00:35-0500 Diastolic blood pressure 79 mm[Hg] Dr. Amandeep Loredo DO Work Phone: [facility] [place] [facility] 10-21-2024 00:35-0500 Heart rate 69 /min Dr. Amandeep Loredo DO Work Phone: [facility] [place] [facility] 10-21-2024 00:35-0500 Respiratory rate 18 /min Dr. Amandeep Loredo DO Work Phone: [facility] [place] [facility] 10-21-2024 00:35-0500 SaO2% (BldA) [Mass fraction] 99 % Dr. Amandeep Loredo DO Work Phone: [facility] [place] [facility] 10-21-2024 00:35-0500 Systolic blood pressure 155 mm[Hg] Dr. Amandeep Loredo DO Work Phone: [facility] [place] [facility] 10-20-2024 20:13-0500 Body mass index (BMI) [Ratio] 28 kg/m2 Dr. Amandeep Loredo DO Work Phone: [facility] [place] [facility] 10-20-2024 20:13-0500 Body weight 86.[address] Amandeep Loredo DO Work Phone: [facility] [place] [facility] 12-01-2023 04:06-0400 Body temperature 99.4 [degF] [facility] 12-01-2023 04:06-0400 Diastolic blood pressure 81 mm[Hg] [facility] [place] [facility] 12-01-2023 04:06-0400 Heart rate 98 /min [facility] 12-01-2023 04:06-0400 Respiratory rate 16 /min [facility] 12-01-2023 04:06-0400 SaO2% (BldA) [Mass fraction] 97 % [facility] [place] [facility] 12-01-2023 04:06-0400 Systolic blood pressure 165 mm[Hg] [facility] [place] [facility] 12-01-2023 02:07-0400 Body height 172.72 cm [facility] 12-01-2023 02:07-0400 Body mass index (BMI) [Ratio] 26.7 kg/m2 [facility] [place] [facility] 12-01-2023 02:07-0400 Body weight 79.9 kg [facility] 11-18-2023 19:22-0400 Body temperature 98.6 [degF] [facility] 11-18-2023 19:22-0400 Diastolic blood pressure 80 mm[Hg] [facility] [place] [facility] 11-18-2023 19:22-0400 Heart rate 92 /min [facility] 11-18-2023 19:22-0400 Respiratory rate 22 /min [facility] 11-18-2023 19:22-0400 SaO2% (BldA) [Mass fraction] 99 % [facility] [place] [facility] 11-18-2023 19:22-0400 Systolic blood pressure 145 mm[Hg] [facility] [place] [facility] 11-18-2023 18:49-0400 Body mass index (BMI) [Ratio] 27.5 kg/m2 [facility] [place] [facility] 11-18-2023 18:49-0400 Body weight 82.1 kg [facility] 11-18-2023 18:42-0400 Body height 172.72 cm [facility] 10-07-2023 22:09-0500 Body temperature 96.5 [degF] [facility] 10-07-2023 22:09-0500 Diastolic blood pressure 84 mm[Hg] [facility] [place] [facility] 10-07-2023 22:09-0500 Heart rate 78 /min [facility] 10-07-2023 22:09-0500 Respiratory rate 18 /min [facility] 10-07-2023 22:09-0500 SaO2% (BldA) [Mass fraction] 99 % [facility] [place] [facility] 10-07-2023 22:09-0500 Systolic blood pressure 140 mm[Hg] [facility] [place] [facility] 10-07-2023 19:11-0500 Body height 172.72 cm [facility] 10-07-2023 19:11-0500 Body mass index (BMI) [Ratio] 26.8 kg/m2 [facility] [place] [facility] 10-07-2023 19:11-0500 Body weight 80 kg [facility] 07-27-2023 16:31-0500 Body height 172.7 cm Amandeep Loredo DO Work Phone: [facility] 07-27-2023 16:31-0500 Body mass index (BMI) [Ratio] 27.22 kg/m2 Amandeep Loredo DO Work Phone: [facility] 07-27-2023 16:31-0500 Body temperature 97.81 [degF] Amandeep Loredo DO Work Phone: [facility] 07-27-2023 16:31-0500 Body weight 81.19 kg Amandeep Loredo DO Work Phone: [facility] 07-27-2023 16:31-0500 Diastolic blood pressure 78 mm[Hg] Amandeep Loredo DO Work Phone: [facility] 07-27-2023 16:31-0500 Heart rate 98 /min Amandeep Loredo DO Work Phone: [facility] 07-27-2023 16:31-0500 SaO2% (BldA) [Mass fraction] 95 % Amandeep Loredo DO Work Phone: [facility] 07-27-2023 16:31-0500 Systolic blood pressure 130 mm[Hg] Amandeep Loredo DO Work Phone: [facility] 03-06-2023 01:20-0400 Diastolic Blood Pressure Non-Invasive 78 [...] [facility] 02-15-2023 17:09-0400 Body height 172.72 cm [facility] 02-15-2023 17:09-0400 Body mass index (BMI) [Ratio] 27.1 kg/m2 [facility] [place] [facility] 02-15-2023 17:09-0400 Body temperature 96.4 [degF] [facility] 02-15-2023 17:09-0400 Body weight 80.83 kg [facility] 02-15-2023 17:09-0400 Diastolic blood pressure 78 mm[Hg] [facility] [place] [facility] 02-15-2023 17:09-0400 Heart rate 82 /min [facility] 02-15-2023 17:09-0400 Respiratory rate 16 /min [facility] 02-15-2023 17:09-0400 SaO2% (BldA) [Mass fraction] 98 % [facility] [place] [facility] 02-15-2023 17:09-0400 Systolic blood pressure 118 mm[Hg] [facility] [place] [facility] 11-27-2022 07:37-0400 Diastolic blood pressure 76 mm[Hg] Earl Parson MD Work Phone: [facility] 11-27-2022 07:37-0400 Heart rate 67 /min Earl Parson MD Work Phone: [facility] 11-27-2022 07:37-0400 Systolic blood pressure 117 mm[Hg] Earl Parson MD Work Phone: [facility] 11-27-2022 07:34-0400 Body temperature 96.21 [degF] Earl Parson MD Work Phone: [facility] 11-27-2022 07:34-0400 Respiratory rate 16 /min Earl Parson MD Work Phone: [facility] 11-27-2022 07:34-0400 SaO2% (BldA) [Mass fraction] 97 % Earl Parson MD Work Phone: [facility] 11-26-2022 14:59-0400 Body height 172.7 cm Earl Parson MD Work Phone: [facility] 11-26-2022 14:59-0400 Body mass index (BMI) [Ratio] 25.85 kg/m2 Earl Parson MD Work Phone: [facility] 11-26-2022 14:59-0400 Body weight 77.11 kg Earl Parson MD Work Phone: [facility] 11-25-2022 09:00-0400 Diastolic blood pressure 80 mm[Hg] Ha Dona PA-C Work Phone: [facility] 11-25-2022 09:00-0400 Systolic blood pressure 147 mm[Hg] Ha Dona PA-C Work Phone: [facility] 11-25-2022 08:48-0400 Body height 172.7 cm Ha Dona PA-C Work Phone: [facility] 11-25-2022 08:48-0400 Body mass index (BMI) [Ratio] 27.22 kg/m2 Ha Dona PA-C Work Phone: [facility] 11-25-2022 08:48-0400 Body weight 81.19 kg Ha Sandovalell PA-C Work Phone: [facility] 11-25-2022 08:48-0400 Heart rate 103 /min Ha Carcamo PA-C Work Phone: [facility] 11-16-2022 22:39-0400 Body mass index (BMI) [Ratio] 28.3 kg/m2 [facility] [place] [facility] 11-16-2022 22:39-0400 Body weight 84.4 kg [facility] 11-16-2022 21:10-0400 Body height 172.72 cm [facility] 11-16-2022 21:10-0400 Body temperature 98 [degF] [facility] [facility]16-[facility]22 21:10-0400 Diastolic blood pressure 79 mm[Hg] [facility] 11-16-2022 21:10-0400 Heart rate 101 /min [facility] 11-16-2022 21:10-0400 Respiratory rate 15 /min [facility] 11-16-2022 21:10-0400 SaO2% (BldA) [Mass fraction] 95 % [facility] 11-16-2022 21:10-0400 Systolic blood pressure 133 mm[Hg] [facility] 11-10-2022 09:46-0400 Body temperature 98.8 [degF] Kenny Serna MD Work Phone: [facility] 11-10-2022 09:46-0400 Diastolic blood pressure 67 mm[Hg] Kenny Serna MD Work Phone: [facility] 11-10-2022 09:46-0400 Heart rate 104 /min Kenny Serna MD Work Phone: [facility] 11-10-2022 09:46-0400 SaO2% (BldA) [Mass fraction] 93 % Kenny Serna MD Work Phone: [facility] 11-10-2022 09:46-0400 Systolic blood pressure 116 mm[Hg] Kenny Serna MD Work Phone: [facility] 11-09-2022 20:22-0400 Respiratory rate 18 /min Kenny Serna MD Work Phone: [facility] 11-06-2022 10:43-0400 Body height 172.7 cm Kenny Serna MD Work Phone: [facility] 11-06-2022 10:43-0400 Body mass index (BMI) [Ratio] 27.22 kg/m2 Kenny Serna MD Work Phone: [facility] 11-06-2022 10:43-0400 Body weight 81.19 kg Kenny Serna MD Work Phone: [facility] 10-30-2022 08:45-0500 Diastolic blood pressure 84 mm[Hg] Amandeep Loredo DO Work Phone: [facility] 10-30-2022 08:45-0500 Heart rate 76 /min Amandeep Loredo DO Work Phone: [facility] 10-30-2022 08:45-0500 Systolic blood pressure 126 mm[Hg] Amandeep Loredo DO Work Phone: [facility] 10-30-2022 07:55-0500 Body height 174 cm Amandeep Loredo DO Work Phone: [facility] 10-30-2022 07:55-0500 Body mass index (BMI) [Ratio] 26.67 kg/m2 Amandeep Loredo DO Work Phone: [facility] 10-30-2022 07:55-0500 Body temperature 97.11 [degF] Amandeep Loredo DO Work Phone: [facility] 10-30-2022 07:55-0500 Body weight 80.74 kg Amandeep Loredo DO Work Phone: [facility] 10-30-2022 07:55-0500 SaO2% (BldA) [Mass fraction] 94 % Amandeep Loredo DO Work Phone: [facility] 10-14-2022 20:17-0500 Body mass index (BMI) [Ratio] 27.6 kg/m2 Dr. Ari Sotomayor Work Phone: [facility] 10-14-2022 20:17-0500 Body weight 82.[address] Ari Sotomayor Work Phone: [facility] 10-14-2022 20:13-0500 Body height 172.[address] Ari Sotomayor Work Phone: [facility] 10-14-2022 20:13-0500 Body temperature 98.6 [degF] Dr. Ari Sotomayor Work Phone: [facility] 10-14-2022 20:13-0500 Diastolic blood pressure 100 mm[Hg] Dr. Ari Sotomayor Work Phone: [facility] 10-14-2022 20:13-0500 Heart rate 95 /min Dr. Ari Sotomayor Work Phone: [facility] 10-14-2022 20:13-0500 Respiratory rate 16 /min Dr. Ari Sotomayor Work Phone: [facility] 10-14-2022 20:13-0500 SaO2% (BldA) [Mass fraction] 98 % Dr. Ari Sotomayor Work Phone: [facility] 10-14-2022 20:13-0500 Systolic blood pressure 161 mm[Hg] Dr. Ari Sotomayor Work Phone: [facility] 10-13-2022 08:38-0500 Body height 174 cm Kenny Serna MD Work Phone: [facility] 10-13-2022 08:38-0500 Body mass index (BMI) [Ratio] 25.47 kg/m2 Kenny Srena MD Work Phone: [facility] 10-13-2022 08:38-0500 Body weight 77.11 kg Kenny Serna MD Work Phone: [facility] 10-03-2022 11:00-0500 Diastolic blood pressure 90 mm[Hg] Kenny Serna MD Work Phone: [facility] 10-03-2022 11:00-0500 Heart rate 100 /min Kenny Serna MD Work Phone: [facility] 10-03-2022 11:00-0500 SaO2% (BldA) [Mass fraction] 97 % Kenny Serna MD Work Phone: [facility] 10-03-2022 11:00-0500 Systolic blood pressure 151 mm[Hg] Kenny Serna MD Work Phone: [facility] 10-03-2022 08:43-0500 Respiratory rate 12 /min Kenny Serna MD Work Phone: [facility] 10-03-2022 06:58-0500 Body temperature 97 [degF] Kenny Serna MD Work Phone: [facility] 09-23-2022 17:12-0500 Diastolic blood pressure 89 mm[Hg] Dr. Ari Sotomayor Work Phone: [facility] 09-23-2022 17:12-0500 Heart rate 87 /min Dr. Ari Sotomayor Work Phone: [facility] 09-23-2022 17:12-0500 Respiratory rate 17 /min Dr. Ari Sotomayor Work Phone: [facility] 09-23-2022 17:12-0500 SaO2% (BldA) [Mass fraction] 96 % Dr. Ari Sotomayor Work Phone: [facility] 09-23-2022 17:12-0500 Systolic blood pressure 152 mm[Hg] Dr. Ari Sotomayor Work Phone: [facility] 09-23-2022 13:11-0500 Body height 175.[address] Ari Sotomayor Work Phone: [facility] 09-23-2022 13:11-0500 Body mass index (BMI) [Ratio] 25.8 kg/m2 Dr. Ari Sotomayor Work Phone: [facility] 09-23-2022 13:11-0500 Body temperature 98 [degF] Dr. Ari Sotomayor Work Phone: [facility] 09-23-2022 13:11-0500 Body weight 79.[address] Ari Sotomayor Work Phone: [facility] 08-24-2022 18:00-0500 Diastolic blood pressure 74 mm[Hg] Dr. Ari Sotomayor Work Phone: [facility] 08-24-2022 18:00-0500 Heart rate 82 /min Dr. Ari Sotomayor Work Phone: [facility] 08-24-2022 18:00-0500 Respiratory rate 18 /min Dr. Ari Sotomayor Work Phone: [facility] 08-24-2022 18:00-0500 SaO2% (BldA) [Mass fraction] 99 % Dr. rAi Sotomayor Work Phone: [facility] 08-24-2022 18:00-0500 Systolic blood pressure 132 mm[Hg] Dr. Ari Sotomayor Work Phone: [facility] 08-24-2022 11:37-0500 Body height 175.[address] Ari Sotomayor Work Phone: [facility] Work Phone: 08-24-2022 11:37-0500 Body mass index (BMI) [Ratio] 26.6 kg/m2 Dr. Ari Sotomayor Work Phone: [facility] 08-24-2022 11:37-0500 Body temperature 96.8 [degF] Dr. Ari Sotomayor Work Phone: [facility] 08-24-2022 11:37-0500 Body weight 81.[address] Ari Sotomayor Work Phone: [facility] 08-20-2022 22:55-0500 Heart rate 88 /min Dr. Ari Sotomayor Work Phone: [facility] 08-20-2022 22:55-0500 Respiratory rate 20 /min Dr. Ari Sotomayor Work Phone: [facility] 08-20-2022 22:55-0500 SaO2% (BldA) [Mass fraction] 98 % Dr. Ari Sotomayor Work Phone: [facility] 08-20-2022 20:20-0500 Body height 175.[address] Ari Sotomayor Work Phone: [phone] [place] [address] Work Phone: 08-20-2022 20:20-0500 Body mass index (BMI) [Ratio] 26.6 kg/m2 Dr. Ari Sotomayor Work Phone: [facility] 08-20-2022 20:20-0500 Body temperature 97.9 [degF] Dr. Ari Sotomayor Work Phone: [facility] 08-20-2022 20:20-0500 Body weight 81.[address] Ari Sotomayor Work Phone: [facility] 08-20-2022 20:20-0500 Diastolic blood pressure 74 mm[Hg] Dr. Ari Sotomayor Work Phone: [facility] 08-20-2022 20:20-0500 Systolic blood pressure 125 mm[Hg] Dr. Ari Sotomayor Work Phone: [facility] 07-18-2022 21:54-0500 Body mass index (BMI) [Ratio] 26.6 kg/m2 Dr. Ari Sotomayor Work Phone: [facility] 07-18-2022 21:54-0500 Body temperature 97.7 [degF] Dr. Ari Sotomayor Work Phone: [facility] 07-18-2022 21:54-0500 Body weight 81.[address] Ari Sotomayor Work Phone: [facility] 07-18-2022 21:54-0500 Diastolic blood pressure 100 mm[Hg] Dr. Ari Sotomayor Work Phone: [facility] 07-18-2022 21:54-0500 Heart rate 109 /min Dr. Ari Sotomayor Work Phone: [facility] 07-18-2022 21:54-0500 Respiratory rate 19 /min Dr. Ari Sotomayor Work Phone: [facility] 07-18-2022 21:54-0500 SaO2% (BldA) [Mass fraction] 97 % Dr. Ari Sotomayor Work Phone: [facility] 07-18-2022 21:54-0500 Systolic blood pressure 139 mm[Hg] Dr. Ari Sotomayor Work Phone: [facility] 07-11-2022 08:44-0500 Body height 174 cm Kenny Serna MD Work Phone: [facility] 07-11-2022 08:44-0500 Body mass index (BMI) [Ratio] 25.47 kg/m2 Kenny Serna MD Work Phone: [facility] 07-11-2022 08:44-0500 Body weight 77.11 kg Kenny Serna MD Work Phone: [facility] 07-11-2022 08:44-0500 Diastolic blood pressure 81 mm[Hg] Kenny Serna MD Work Phone: [facility] 07-11-2022 08:44-0500 Systolic blood pressure 117 mm[Hg] Kenny Serna MD Work Phone: [facility] 07-02-2022 10:08-0500 Body mass index (BMI) [Ratio] 27 kg/m2 Dr. Ari Sotomayor Work Phone: [facility] 07-02-2022 10:08-0500 Body weight [address] Ari Sotomayor Work Phone: [facility] 06-28-2022 22:47-0400 Respiratory rate 16 /min [facility] 06-28-2022 21:30-0400 Body height 175.26 cm [facility] Work Phone: 06-28-2022 21:30-0400 Body mass index (BMI) [Ratio] 26.6 kg/m2 [facility] 06-28-2022 21:30-0400 Body temperature 97.5 [degF] [facility] 06-28-2022 21:30-0400 Body weight 81.64 kg [facility] 06-28-2022 21:30-0400 Diastolic blood pressure 99 mm[Hg] [facility] 06-28-2022 21:30-0400 Heart rate 106 /min [facility] 06-28-2022 21:30-0400 SaO2% (BldA) [Mass fraction] 93 % [facility] 06-28-2022 21:30-0400 Systolic blood pressure 140 mm[Hg] [facility] 05-04-2022 19:26-0400 Body height 175.26 cm [facility] Work Phone: 05-04-2022 19:26-0400 Body mass index (BMI) [Ratio] 25.1 kg/m2 [facility] Work Phone: 05-04-2022 19:26-0400 Body temperature 98.9 [degF] [facility] Work Phone: 05-04-2022 19:26-0400 Body weight 77.11 kg [facility] Work Phone: 05-04-2022 19:26-0400 Diastolic blood pressure 78 mm[Hg] [facility] Work Phone: 05-04-2022 19:26-0400 Heart rate 78 /min [facility] Work Phone: 05-04-2022 19:26-0400 Respiratory rate 16 /min [facility] Work Phone: 05-04-2022 19:26-0400 SaO2% (BldA) [Mass fraction] 96 % [facility] Work Phone: 05-04-2022 19:26-0400 Systolic blood pressure 158 mm[Hg] [facility] Work Phone: 03-21-2022 22:28-0400 Respiratory rate 16 /min [facility] Work Phone: 03-21-2022 19:15-0400 Body height 175.26 cm [facility] Work Phone: 03-21-2022 19:15-0400 Body mass index (BMI) [Ratio] 26.6 kg/m2 [facility] Work Phone: 03-21-2022 19:15-0400 Body temperature 97.9 [degF] [facility] Work Phone: 03-21-2022 19:15-0400 Body weight 81.64 kg [facility] Work Phone: 03-21-2022 19:15-0400 Diastolic blood pressure 78 mm[Hg] [facility] Work Phone: 03-21-2022 19:15-0400 Heart rate 88 /min [facility] Work Phone: 03-21-2022 19:15-0400 SaO2% (BldA) [Mass fraction] 98 % [facility] Work Phone: 03-21-2022 19:15-0400 Systolic blood pressure 135 mm[Hg] [facility] Work Phone: 01-27-2022 20:06-0400 Body mass index (BMI) [Ratio] 28 kg/m2 [facility] Work Phone: 01-27-2022 20:06-0400 Body temperature 98.2 [degF] [facility] Work Phone: 01-27-2022 20:06-0400 Body weight 86.18 kg [facility] Work Phone: 01-27-2022 20:06-0400 Diastolic blood pressure 96 mm[Hg] [facility] Work Phone: 01-27-2022 20:06-0400 Heart rate 95 /min [facility] Work Phone: 01-27-2022 20:06-0400 Respiratory rate 16 /min [facility] Work Phone: 01-27-2022 20:06-0400 SaO2% (BldA) [Mass fraction] 95 % [facility] Work Phone: 01-27-2022 20:06-0400 Systolic blood pressure 171 mm[Hg] [facility] Work Phone: 05-15-2020 06:18-0400 Body Temperature 98.6 [degF] [facility] 05-15-2020 06:18-0400 BP Diastolic 78 mm[Hg] [facility] 05-15-2020 06:18-0400 BP Systolic 126 mm[Hg] [facility] 05-15-2020 06:18-0400 Pulse (Heart Rate) 88 /min [facility] 05-15-2020 06:18-0400 Pulse Oximetry 95 % [facility] 05-15-2020 06:18-0400 Respiratory Rate 14 /min [facility] 05-13-2020 18:38-0400 BMI (Body Mass Index) 31.01 kg/m2 [facility], [place] 05-13-2020 18:38-0400 Body weight 95.25 [facility] [place] 05-13-2020 18:38-0400 Height 175.3 cm Augustine [place], [place] 01-05-2020 17:35-0400 Body temperature 37.0 Deg [facility] Comment on above: Performed By: #### CMP #### [facility] [address] [address] 05-13-2019 02:21-0400 BP Diastolic 81 mm[Hg] [facility] , [place] 05-13-2019 02:21-0400 BP Systolic 128 mm[Hg] [facility] , [place] 05-13-2019 02:21-0400 Pulse (Heart Rate) 88 /min [place], [place] 05-13-2019 02:21-0400 Pulse Oximetry 97 % [facility] , [place] 05-13-2019 02:21-0400 Respiratory Rate 18 /min [facility] 05-12-2019 19:02-0400 BMI (Body Mass Index) 30.41 kg/m2 [facility] 05-12-2019 19:02-0400 Body Temperature 97.81 [degF] [facility], [place] 05-12-2019 19:02-0400 Body weight 90.72 kg [facility] , [place] 05-12-2019 19:02-0400 Height 172.7 cm [place], [place] Encounters Encounter Date Encounter Type Care Provider Facility Start: 04-17-2025 Non-patient / Non-visit [facility]. [facility] Work Phone: Start: 04-16-2025 Non-patient / Non-visit Dr. Bina Arnold [facility] Work Phone: Start: 04-16-2025 ambulatory [facility] Facility:[facility] Start: 04-15-2025 End: 04-17-2025 ambulatory Hany Gooden Facility:[facility] Start: 04-15-2025 End: 04-17-2025 Evaluation and management of inpatient Dr. Alfred Sotomayor DO -Progressive Care Unit Work Phone: Start: 04-15-2025 End: 04-17-[address] Amandeep Loredo DO Work Phone: -Progressive Care Unit Start: 04-14-2025 End: 04-17-2025 ambulatory Melisa Valero RN [facility] Start: 04-14-2025 End: 04-17-2025 Patient encounter procedure Melisa Valero RN [facility] Start: 04-14-2025 End: 04-14-2025 Emergency department patient [...] -Emergency Department Work Phone: Start: 10-17-2024 ambulatory Trevor Pisano Facility :[facility] Start: 09-04-2024 End: 09-05-2024 Emergency department patient visit Narciso Tod Facility:[facility] Start: 08-07-2024 End: 08-07-2024 Emergency department patient visit Jordin Chisholm Facility:[facility] Start: 06-29-2024 End: 06-29-2024 Emergency department patient visit Kenny Kaye Facility:[facility] Start: 05-11-2024 End: 05-12-2024 Emergency department patient visit Mattie Jeffrey Facility:[facility] Start: 01-30-2024 End: 01-30-2024 ambulatory Cheri Kuhn RN [facility] Line Comment on above: Advice/health educat ion Start: 12-01-2023 End: 12-01-2023 Emergency department patient visit [facility]-Emergency Department Work Phone: Start: 11-18-2023 End: 11-18-2023 Emergency department patient visit [facility]Emergency Department Work Phone: Start: 10-07-2023 End: 10-07-2023 Emergency department patient visit [facility]Emergency Department Work Phone: Start: 09-01-2023 ambulatory Alva Blas RN [facility] Start: 09-01-2023 Patient encounter procedure Alva Blas RN [facility] Start: 07-27-2023 End: 07-27-2023 Office outpatient visit 15 minutes Amandeep Pineda Gertrude DOMINGO Work Phone: [facility] Comment on above: Chronic superficial gastritis without bleeding (Primary Dx); Seizure (HCC) Start: 07-06-2023 End: 07-06-2023 Subsequent hospital visit by physician Kenny Serna MD Work Phone: [facility] X-ray Comment on above: Status post lumbar s pine surgery for decompression of spinal cord Start: 07-06-2023 End: 07-06-2023 Subsequent hospital visit by physician Shadia Kovacs PA-C Work Phone: [facility] Comment on above: Cervicalgia Start: 05-11-2023 Transcribe Orders Shadia Morales to PA-C Work Phone: [facility] Comment on above: Cervicalgia (Primary Dx) Start: 03-06-2023 End: 03-06-2023 Emergency department patient visit BELINDA COVARRUBIAS MD Facility:[facility] Start: 03-05-2023 End: 03-06-2023 Emergency department patient visit BELINDA COVARRUBIAS MD [facility] Start: 02-15-2023 End: 02-15-2023 Emergency department patient visit [facility]-Emergency Department Start: 11-25-2022 End: 11-25-2022 Subsequent hospital visit by physician [facility] Ed Xr Portable [facility] X-Ray Comment on above: Arrived Start: 11-25-2022 End: 11-27-2022 Emergency department patient visit Earl Parson MD Work Phone: [facility] 4N MED SURG Comment on above: Syncope, unspecified syncope type (Primary Dx); History of spinal surgery; Dehydration; Diarrhea, unspecified type; Seizure (HCC); Nausea and vomiting, unspecified vomiting type; Right leg pain; Status post spinal surgery; Lumbar radiculopathy Start: 11-25-2022 End: 11-25-2022 Postop follow up visit related to original px Ha Carcamo PA-C Work Phone: [facility] Comment on above: Status post spinal s urgery (Primary Dx); Lumbar radiculopathy Start: 11-24-2022 Telephone encounter Kenny durand MD Work Phone: [facility] Comment on above: Reschedule Start: 11-16-2022 End: 11-17-2022 Emergency department patient visit [facility]-Emergency Department Start: 11-13-2022 Telephone encounter Brenda garcia NP Work Phone: [facility] Comment on above: Post-op Call Start: 11-06-2022 End: 11-06-2022 Subsequent hospital visit by physician [facility] Surgery C-Arm C [facility] X-Ray Comment [...] Telephone encounter Brenda garcia NP Work Phone: [facility] Start: 10-30-2022 End: 10-30-2022 Subsequent hospital visit by physician [facility] Xr Exam Room [facility] Radiology Comment on above: Mild intermittent as thma, unspecified whether complicated; Cough, unspecified type Start: 10-30-2022 End: 10-30-2022 Office outpatient visit 25 minutes Amandeep Pineda Gertrude DO Work Phone: [facility] Comment on above: Lumbosacral radiculo adonay due to degenerative joint disease of spine (Primary Dx); Mild intermittent asthma, unspecified whether complicated; Gastroesophageal reflux disease without esophagitis; Cough, unspecified type; Preoperative clearance; Labile essential hypertension; Migraine without status migrainosus, not intractable, unspecified migraine type Start: 10-30-2022 End: 10-30-2022 Preoperative state Amandeep Loredo DO Work Phone: [facility] Start: 10-28-2022 ambulatory Brenda Louis P Work Phone: [facility] Comment on above: Lumbar radiculopathy (Primary Dx) Start: 10-27-2022 Telephone encounter Kenny durand MD Work Phone: [facility] Comment on above: Nurse Navigation Start: 10-14-2022 End: 10-14-2022 Emergency department patient visit Dr. Ari Sotomayor Work Phone: [facility]-Emergency Department Start: 10-13-2022 End: 10-13-2022 Office outpatient visit 25 minutes Kenny Serna MD Work Phone: [facility] [place] Comment on above: Lumbar stenosis with neurogenic claudication (Primary Dx); Lumbar pain; Fusion of spine of lumbar region Start: 10-03-2022 End: 10-03-2022 Subsequent hospital visit by physician Kenny Serna MD Work Phone: [facility] Comment on above: Spinal stenosis, lum bar region with neurogenic claudication Start: 10-02-2022 Telephone encounter Carlie Reed RN [facility] Start: 10-01-2022 Telephone encounter Kenny durand MD Work Phone: [facility] Anam Comment on above: nurse triage Start: 09-25-2022 End: 09-25-2022 Subsequent hospital visit by physician [facility]am [facility] [address] [facility] [address] Comment on above: Canceled (Patient) Start: 09-23-2022 End: 09-23-2022 Emergency department patient visit Dr. Ari Sotomayor Work Phone: [facility]Emergency Department Start: 08-24-2022 End: 08-24-2022 Emergency department patient [facility] Start: 08-20-2022 End: 08-21-2022 Emergency department patient visit Dr. Ari Sotomayor Work Phone: [facility]Emergency Department Start: 07-18-2022 End: 07-19-2022 Emergency department patient visit Dr. Ari Sotomayor Work Phone: [facility]Emergency Department Start: 07-11-2022 Transcribe Orders Kenny metz MD Work Phone: [facility] Start: 07-11-2022 End: 07-11-2022 Office outpatient new 45 minutes Kenny Serna MD Work Phone: [facility] Comment on above: Lumbar stenosis with neurogenic claudication (Primary Dx); Lumbar pain Start: 07-02-2022 End: 07-02-[address] Ari Sotomayor Work Phone: [facility] Start: 06-28-2022 End: 06-28-2022 [facility] Start: 05-04-2022 End: 05-04-2022 Emergency department patient visit [facility]Emergency [facility] Start: 04-02-2022 End: 04-02-2022 Patient encounter procedure [facility]-Laboratory Start: 03-21-2022 End: 03-21-2022 Emergency department patient visit [facility]Emergency Department Start: 01-27-2022 End: 01-27-2022 Emergency department patient visit [facility]Emergency Department Start: 05-13-2020 End: 05-15-2020 Evaluation and management of inpatient Augustine Rodriguez Work Phone: [facility] 7W MED SURG Comment on above: Other constipation ( Primary Dx); Gastroparesis; Constipation, unspecified constipation type; Irritable bowel syndrome with constipation Start: 09-13-2019 End: 09-13-2019 Subsequent hospital visit by physician Ari Sotomayor DO Work Phone: [facility] Comment on above: Nausea and vomiting, intractability of vomiting not specified, unspecified vomiting type; Painful urination; Flank pain Start: 05-12-2019 End: 05-13-2019 Emergency department patient visit Luis Angel Meng Work Phone: [facility] Emergency Dept Comment on above: Bilateral low back p ain without sciatica, unspecified chronicity (Primary Dx) Procedures Date Procedure Procedure Detail Performing Clinician Start: 04-17-[address] Amandeep Loredo DO Work Phone: Start: 04-15-2025 Serum inorganic phos phate measurement Dr. Amandeep Loredo DO Work Phone: Start: 04-14-2025 X-ray of chest, PA a [...] w/h iv-1 & hiv-2 antbdy single Nguyen QUINTANA Work Phone: Start: 11-26-2022 MEDICATION ASSISTED TREATMENT PANEL Nguyen QUINTANA Work Phone: Start: 11-25-2022 Syphilis test non-tr eponemal antibody qual Nguyen QUINTANA Work Phone: Start: 11-25-2022 Iadna respiratry pro be & rev trnscr 12-25 target Nguyen Ruben QUINTANA Work Phone: Start: 11-25-2022 Ct abdomen & [...] [Units/v olume] in Serum or Plasma Nguyen Ruben QUINTANA Work Phone: Start: 11-25-2022 Ecg routine [...] 11-07-2022 Potassium serum plas ma/whole blood Dawit Yates MD Work Phone: Start: 11-06-2022 End: 11-06-2022 FL GUIDANCE OR USE ONLY - NON-RESULTABLE Kenny Serna MD Work Phone: Start: 11-06-2022 End: 11-06-2022 Arthrodesis anterior interbody lumbar Kenny Serna MD Work Phone: Start: 11-06-2022 End: 11-06-2022 Srinivasan facetectomy & foramotomy 1 segment lumbar Kenny Serna MD Work Phone: Start: 11-06-2022 Blood count complete auto&auto difrntl wbc Brenda Seaman WORK EN[employer]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 Work Phone: Start: 10-30-2022 Radiologic exam ches t 2 views Amandeep [email or web address] [email or web address] Work Phone: Start: 10-30-2022 Ecg routine ecg w/le ast 12 lds w/i&r Amandeep Pineda Gertrude DO Work Phone: Start: 10-14-2022 CT of [...] Work Phone: Start: 05-13-2020 Assay of lipase Kendall ine Bradley Work Phone: Start: 05-13-2020 Basic metabolic pane l calcium total Negar Rodriguez Work Phone: Start: 05-13-2020 Hepatic function panel Negar Rodriguez Work Phone: Start: 05-13-2020 Prothrombin time Kendal Rodriguez Work Phone: Start: 05-13-2020 Blood count complete auto&auto difrntl wbc Negar Rodriguez Work Phone: Start: 09-13-2019 Ct abdomen & pelvis w/o contrast material Ari Sotomayor DO Work Phone: Start: 09-13-2019 Basic metabolic pane l calcium total Ari Pancasso DO Work Phone: Start: 05-12-2019 Iadna-dna/rna [...] views Luis Angel Ankush Gombash Work Phone: Start: 03-03-2005 Lipid 1996 panel - S rita or Plasma Melisa Valero RN Cholecystectomy BELINDA Lechuga MD Entire vertebral col umn (body structure) BELINDA COVARRUBIAS MD Gastric electrical stimulator (physical object) BELINDA COVARRUBIAS MD Hysterectomy BELINDA Ferreira Influenza Types A,B Direct FA (CRAIG) Viral antigen assay Dr. Ari Sotomayor Work Phone: Viral antigen assay Dr. Ari Sotomayor Work Phone: Plan of Treatment Date Care Activity Detail Author Start: 01-08-2044 RSV Immunization for Adults (1 - 1-dose 75+ series) RSV Immunization for Adults (1 - 1-dose 75+ series) [facility] Start: 2029 RSV Immunization age d 60 or older (1 - 1-dose 60+ series) RSV Immunization aged 60 or older (1 - 1-dose 60+ series) [facility] Start: 04-24-2025 Influenza vaccination Influenza Vacc ine (#1) [facility] Start: 04-17-2025 Patient discharge [facility] Start: 04-16-2025 End: 04-16-2025 [facility] Start: 04-15-2025 Following clinical pathway protocol [facility] Start: 04-15-2025 Ambulation without limitation [facility] Start: 04-15-2025 Assessment of risk o f venous thromboembolism [facility] Start: 04-15-2025 Incentive spirometry [facility] Start: 04-15-2025 Inhalation therapy procedure [facility] Start: 04-15-2025 Insertion of cathete r into peripheral vein [facility] Start: 04-15-2025 Measuring intake and output [facility] Start: 04-15-2025 Oxygen therapy [facility] Start: 04-15-2025 Providing care accor ding to standard [facility] Start: 04-15-2025 [facility] Start: 04-15-2025 Admission procedure [facility] Start: 04-14-2025 [facility] Start: 04-14-2025 [facility] Start: 03-14-2025 [facility] Start: 03-14-2025 XR Thoracic spine Views [facility] Start: 03-14-2025 Xray thoracic spine Thoracic Spine 2 Views [facility] Start: 01-05-2025 [facility] Start: 10-21-2024 [facility] Start: 08-24-2024 Medicare Advantage Annual Wellness Visit Medicare Advantage Annual Wellness Visit [facility] Start: 04-24-2024 COVID-19 Vaccine ( season) COVID-19 Vaccine () [facility] Start: 12-01-2023 [facility] Start: 11-18-2023 [facility] Start: 10-31-2023 Diabetes mellitus screening Diabetes Screening [facility] Start: 09-02-2023 End: 09-02-2023 Patient encounter procedure 09/02/2023 8:40 AM EST Office Visit [facility] [address] [place] [address] Leandra Berger PA-C [address] [place] [address] [facility] Start: 04-24-2023 COVID-19 Vaccine ( season) COVID-19 Vaccine () [facility] Start: 04-24-[address] [facility] Start: 02-04-2023 End: 02-04-2023 Patient encounter procedure 02/04/2023 Office Visit Orthopedic Surgery Kenny Serna MD [address] [facility] [address] [place] [address] [facility] Start: 02-04-2023 End: 02-04-2023 Documentation procedure 02/04/2023 Documentation Orthopedic Surgery [facility] Start: 12-17-2022 End: 12-17-2022 Patient encounter procedure 12/17/2022 Office Visit Orthopedic Surgery Kenny Serna MD 1 [facility] [place] [address] [place] [address] [facility] Start: 11-26-2022 End: 11-26-2022 Patient encounter procedure 11/26/2022 Office Visit Orthopedic Surgery Ha Carcamo PA-C 1 [facility] [place] [address] [place], [place] [id number] [facility] Start: 11-26-2022 End: 11-26-2022 Documentation procedure 11/26/2022 Documentation Orthopedic Surgery [facility] Start: 11-25-2022 End: 11-25-2022 Patient encounter procedure 11/25/2022 Office Visit Orthopedic Surgery Ha Carcamo PA-C 1 [facility] [place] [address] [place] [address] [facility] Start: 11-25-2022 End: 11-25-2022 Documentation procedure 11/25/2022 Documentation Orthopedic Surgery [facility] Start: 11-06-2022 End: 11-06-2022 Admission to same day surgery center 11/06/2022 Surgery Procedural Kenny Serna MD 1 [facility] [place] [address] [place], [place] [id number] ANTERIOR LUMBAR INTERBODY FUSION L3/4 VIA RETROPERITONEAL APPROACH POSTERIOR LATERAL FUSION WITH INSTRUMENTATION L3/L4 LUMBAR L3/L4 LAMINECTOMY [63418 (CPT )] [facility] Comment on above: ANTERIOR LUMBAR INTE RBODY FUSION L3/4 VIA RETROPERITONEAL APPROACH POSTERIOR LATERAL FUSION WITH INSTRUMENTATION L3/L4 LUMBAR L3/L4 LAMINECTOMY [75108 (CPT )] Start: 11-06-2022 End: 11-06-2022 Anesthesia consultation 11/06/2022 Anesthesia Event Procedural Ivy Shelby NP [address] [place] [address] [facility] Start: 11-06-2022 End: 11-06-2022 Arthrodesis anterior interbody lumbar ANTERIOR LUMBAR MICRODISCECTOMY AND FUSION XLIF Radiculopathy, lumbar region Spinal stenosis of lumbar region Spondylolisthesis, lumbar region Other intervertebral disc degeneration, lumbar region 11/06/2022 12:30 PM EDT [facility] Start: 11-06-2022 End: 11-06-2022 Srinivasan facetectomy & foramotomy 1 segment lumbar POSTERIOR LUMBAR LAMINECTOMY FACETECTOMY FORAMINOTOMY AND DECOMPRESSION Radiculopathy, lumbar region Spinal stenosis of lumbar region Spondylolisthesis, lumbar region Other intervertebral disc degeneration, lumbar region 11/06/2022 12:30 PM EDT [facility] Start: 11-06-2022 Subsequent hospital visit by physician 11/06/2022 Hospital Encounter Procedural Kenny Serna MD 1 [facility] [address] [place] [address] [facility] Start: 10-31-2022 End: 10-31-2022 Admission to establishment [facility] Pre-Admit Testing Start: 10-30-2022 End: 10-30-2022 Patient encounter procedure 10/30/2022 Office Visit Family Medicine Amandeep Loredo, DO [address] [place] [id number] [facility] Start: 10-28-2022 End: 10-29-2023 Comprehensive metabolic 1998 panel - Serum or Plasma Comprehensive metabolic panel Lab Routine Lumbar radiculopathy Expected: 10/28/2022 (Approximate), Expires: 10/29/2023 [facility] Work Phone: Comment on above: Expected: 10/28/2022 (Approximate), Expires: 10/29/2023 Start: 10-28-2022 End: 10-29-2023 Hemoglobin A1c/Hemoglobin.total in Blood Hemoglobin A1c Lab Routine Lumbar radiculopathy Expected: 10/28/2022 (Approximate), Expires: 10/29/2023 [facility] Comment on above: Expected: 10/28/2022 (Approximate), Expires: 10/29/2023 Start: 10-28-2022 End: 10-29-2023 Methicillin resistant Staphylococcus aureus (MRSA) DNA [Presence] in Nose by KRISTEN with probe detection MRSA by PCR Microbiology Routine Lumbar radiculopathy Expected: 10/28/2022 (Approximate), Expires: 10/29/2023 [facility] Comment on above: Expected: 10/28/2022 (Approximate), Expires: 10/29/2023 Start: 10-13-2022 End: 10-13-2023 25-hydroxyvitamin D3 [Mass/volume] in Serum or Plasma Vitamin D 25 hydroxy Lab Routine Lumbar stenosis with neurogenic claudication Expected: 10/13/2022 (Approximate), Expires: 10/13/2023 [facility] Comment on above: Expected: 10/13/2022 (Approximate), Expires: 10/13/2023 Start: 10-13-2022 End: 10-13-2023 CBC W Auto Differential panel - Blood CBC auto differential Lab Routine Lumbar stenosis with neurogenic claudication Expected: 10/13/2022 (Approximate), Expires: 10/13/2023 [facility] Work Phone: Comment on above: Expected: 10/13/2022 (Approximate), Expires: 10/13/2023 Start: 10-13-2022 End: 10-13-2023 Comprehensive metabolic 1998 panel - Serum or Plasma Comprehensive metabolic panel Lab Routine Lumbar stenosis with neurogenic claudication Expected: 10/13/2022 (Approximate), Expires: 10/13/2023 [facility] Comment on above: Expected: 10/13/2022 (Approximate), Expires: 10/13/2023 Start: 10-13-2022 End: 10-13-2023 Hemoglobin A1c/Hemoglobin.total in Blood Hemoglobin A1c Lab Routine Lumbar stenosis with neurogenic claudication Expected: 10/13/2022 (Approximate), Expires: 10/13/2023 [facility] Comment on above: Expected: 10/13/2022 (Approximate), Expires: 10/13/2023 Start: 10-13-2022 End: 10-13-2022 Patient encounter procedure 10/13/2022 Office Visit Orthopedic Surgery Kenny Serna MD [address] [place] [id number] [facility] Start: 10-03-2022 End: 10-03-2022 Patient encounter procedure 10/03/2022 Appointment Radiology [facility] Start: 09-25-2022 Subsequent hospital visit by physician 09/25/[address] [facility] Start: 09-23-2022 [facility] Start: 08-20-2022 [facility] Start: 06-28-2022 Plain x-ray of hand Hand Min 3 Views [facility] [place] [facility] Work Phone: Start: 06-28-2022 XR Hand GE 3 Views [facility] Work Phone: Start: 04-24-2022 Influenza vaccination Influenza Vacc ine (#1) [facility] Start: 04-02-2022 Procedure [facility] Work Phone: Start: 05-13-2021 Screening for malign ant neoplasm of colon [facility] Start: 05-11-2021 [facility] [place] Start: 09-13-2020 Influenza vaccination Flu vaccine (# 1) [facility] Work Phone: Comment on above: Postponed from 04/24 (Patient Refused) Start: 05-21-2020 End: 05-21-2020 Office Visit 05/21/2020 Office Visit Family Medicine Amandeep Loredo, DO [address] [place] [id number] [facility] Start: 04-24-2020 Influenza vaccination Flu vaccine (# 1) [place] Start: 04-24-2019 Influenza vaccination Flu vaccine (# 1) [place] Start: 2019 Breast cancer screen Breast cancer s gloria [facility] Work Phone: Start: 2019 Colon cancer screen colonoscopy Colon cancer screen colonoscopy [place] Start: 2019 Screening for malign ant neoplasm of breast Breast cancer screen [place] Start: 2019 Screening for malign ant neoplasm of colon Colon cancer screen colonoscopy [place] Start: 2019 Shingles (RZV) Vacci ne (1 of 2) Shingles (RZV) Vaccine (1 of 2) [facility] Start: 2019 Shingles Vaccine (1 of 2) Shingles Vaccine (1 of 2) [place] Start: 2019 Zoster Vaccines (1 of 2) Zoster Vacc ila (1 of 2) [facility] Start: 09-24-2014 [facility] wellness [facility] Start: 04-24-2014 Pneumococcal Vaccine : 50+ Years (2 of 2 - PCV) Pneumococcal Vaccine: 50+ Years (2 of 2 - PCV) [facility] Start: 04-24-2014 Pneumococcal Vaccine : Pediatrics (0 to 5 Years) and At-Risk Patients (6 to 64 Years) (2 - PCV) Pneumococcal Vaccine: Pediatrics (0 to 5 Years) and At-Risk Patients (6 to 64 Years) (2 - PCV) [facility] Start: 04-24-2014 Pneumococcal Vaccine : Pediatrics (0 to 5 Years) and At-Risk Patients (6 to 64 Years) (2 of 2 - PCV) Pneumococcal Vaccine: Pediatrics (0 to 5 Years) and At-Risk Patients (6 to 64 Years) (2 of 2 - PCV) [facility] Start: 2014 Cholesterol [Mass/volume] in Serum or Plasma Cholesterol [facility] Start: 2014 Screening for malign ant neoplasm of colon [facility] Start: 03-03-2010 Lipid panel Lipid Panel [facility] Start: 2009 Lipid panel Lipid screen [place], [place] Start: 2009 Lipid screen Lipid screen [place], [place] Start: 2009 Screening for malign ant neoplasm of breast [facility] Start: 1990 Screening for malign ant neoplasm of cervix Pap Smear [facility] Start: 01-08-1988 DTaP/Tdap/Td vaccine (1 - Tdap) DTaP/Tdap/Td vaccine (1 - Tdap) [place] Start: 01-08-1988 DTaP/Tdap/Td Vaccine s (1 - Tdap) DTaP/Tdap/Td Vaccines (1 - Tdap) [facility] Start: 01-08-1988 Hepatitis A (HAV) Vaccine (optional start 19+ years) Hepatitis A (HAV) Vaccine (optional start 19+ years) [facility] Start: 01-08-1988 Hepatitis A Vaccines (1 of 2 - Risk 2-dose series) Hepatitis A Vaccines (1 of 2 - Risk 2-dose series) [facility] Start: 01-08-1988 Hepatitis B vaccination Hepati tis B (HBV) Vaccine (1 of 3 - 19+ 3-dose series) [facility] Start: 01-08-1988 Hepatitis B Vaccines (1 of 3 - 19+ 3-dose series) Hepatitis B Vaccines (1 of 3 - 19+ 3-dose series) [facility] Start: 1987 Diabetes mellitus screening Diabetes Screening [facility] Start: 1987 Hepatitis C screening [facility] Start: 1987 Tetanus + diphtheria + acellular pertussis vaccine (product) Tdap Booster [facility] Start: 01-08-1984 HIV screen HIV screen [facility] [place] [place] Start: 01-08-1984 HIV screening [facility] Start: 1981 Depression Monitoring Depression Mon itoring [facility] Start: 1981 Depresssion Monitoring Depresssion M onitoring [facility] Start: 01-08-1980 DTaP/Tdap/Td vaccine (1 - Tdap) DTaP/Tdap/Td vaccine (1 - Tdap) [facility] Work Phone: Start: 1970 Hepatitis A Vaccines (1 of 2 - Risk 2-dose series) Hepatitis A Vaccines (1 of 2 - Risk 2-dose series) [facility] Start: 1970 MMR Vaccines (1 of 1 - Standard series) MMR Vaccines (1 of 1 - Standard series) [facility] Start: 1969 COVID-19 Vaccine (#1) COVID-19 Vacci ne (#1) [facility] Start: 1969 Examination of skin Derm Melanoma Sk in Check [facility] Start: 1969 Hepatitis B Vaccines (1 of 3 - 3-dose series) Hepatitis B Vaccines (1 of 3 - 3-dose series) [facility] Start: 1969 HIV screening HIV Screening [facility] Start: 1969 Lipid panel Lipid Panel [facility] Start: 1969 Medicare Advantage Annual Wellness Visit (AWV) Medicare Advantage Annual Wellness Visit (AWV) [facility] Start: 1969 Screening for malign ant neoplasm of colon [facility] Basic Metabolic Pane l w/ Reflex to MG Basic Metabolic Panel w/ Reflex to MG Lab Routine Daily until discontinued starting 05/14/2020, 2 completed [facility] Comment on above: Daily until disconti nued starting 05/14/2020, 2 completed Bilirubin measuremen t, urine [facility] [place] [facility] CBC CBC Lab Routine Daily until discontinued starting 05/14/2020, 2 completed [facility] Comment on above: Daily until disconti nued starting 05/14/2020, 2 completed End: 09-13-2019 CT ABDOMEN PELVIS WO CONTRAST Additional Contrast? Radiologist Recommendation CT ABDOMEN PELVIS WO CONTRAST Additional Contrast? Radiologist Recommendation Imaging STAT Painful urination Flank pain 1 Occurrences starting 09/13/2019 until 09/13/2019 [employer] Work Phone: Comment on above: 1 Occurrences starti ng 09/13/2019 until 09/13/2019 Hemoglobin [Presence ] in Urine [facility] [place] [facility] Measurement of keton es in urine using dipstick [facility] [place] [facility] Microscopic urinalysis [facility] OUTSIDE PROCEDURE SCAN OUTSIDE P ROCEDURE SCAN Procedures Ordered: 10/30/2022 [facility] Comment on above: Ordered: 10/30/2022 OUTSIDE PROCEDURE SCAN OUTSIDE P ROCEDURE SCAN Procedures Ordered: 09/24/2022 [facility] Comment on above: Ordered: 09/24/2022 OUTSIDE PROCEDURE SCAN OUTSIDE P ROCEDURE SCAN Procedures Ordered: 07/06/2023 [facility] Comment on above: Ordered: 07/06/2023 Oxygen therapy [[facility] Data Set] Initiate Oxygen Therapy Protocol Respiratory Care Routine Daily until discontinued starting 05/14/2020 [facility] Comment on above: Daily until disconti nued starting 05/14/2020 Patient Education [facility] Work Phone: Patient referral [facility] Work Phone: pH of Urine [facility] Specific gravity of Urine [facility] [place] [facility] Urine blood test [facility] Urine dipstick for glucose [facility] [place] [facility] Urine dipstick for leukocyte esterase [facility] [place] [facility] Urine dipstick for nitrite [facility] [place] [facility] Urine dipstick for protein [facility] [place] [facility] Urine examination [facility] Urine microscopy: epithelial cells [facility] [place] [facility] Urine Microscopy: wh ite cells [facility] [place] [facility] Urobilinogen [Presen ce] in Urine [facility] [place] [facility] Vitamin C Vitamin C Lab ST AT 11/26/2022 4:39 AM EDT [facility] Work Phone: End: 07-06-2023 XR Lumbar spine Views W flexion and W extension [facility] Work Phone: Comment on above: Once for 1 Occurrenc es starting 07/06/2023 until 07/06/2023 Immunizations Immunization Date Immunization Notes Care Provider Fa parveen 05-05-2018 Influenza virus vaccine [facility] 05-05-2018 influenza virus vacc ine, unspecified formulation Ari Sotomayor DO Work Phone: [facility] Work [facility]: 05-05-2018 influenza, seasonal, injectable Kenny Serna MD Work Phone: [facility] 05-05-2018 influenza, seasonal, injectable, preservative free Kenny Serna MD Work Phone: [facility] 07-24-2016 influenza virus vacc ine, unspecified formulation Ari Sotomayor DO Work Phone: [facility] 07-24-2016 influenza, injectabl e, quadrivalent, preservative free [facility] [place] [facility] 07-24-2016 influenza, seasonal, injectable [facility] [place] [facility] 04-24-2013 Influenza virus vaccine [facility] 04-24-2013 influenza virus vacc ine, unspecified formulation Ari Sotomayor DO Work Phone: [facility] Work Phone: 04-24-2013 influenza, seasonal, injectable Kenny Serna MD Work Phone: [facility] 04-24-2013 influenza, seasonal, injectable, preservative free Kenny Serna MD Work Phone: [facility] 04-24-2013 pneumococcal polysaccharide vaccine, 23 valent Ari Sotomayor DO Work Phone: [facility] Work Phone: 04-24-2013 Pneumococcal Vaccine [facility] Work Phone: 04-24-2013 pneumococcal vaccine , unspecified formulation [facility] Payers Date Payer Category Payer Unknown [id number] 2024 Self-pay [id number] 2021 Private Health Insurance [facility] [id number] 2021-Present [phone] [address] [address] [place] [address] Medicare HMO [id number] 2016 Private Health Insurance [facility] [address] [facility] xxxxxxxxx 2016-Present [phone] [address] [place] [address] xxxxxxxxx [id number] 2016 Private Health Insurance [facility] [id number] 2016 Unknown [id number] 2016 Medicare HMO [facility] SRIRAM IN[place] [id number] 2012 Unknown ANTHEM - BLUE CR OSS BLUE CROSS/HMO,PPO,POS [id number] 2012-Present [address] [place] [address] PPO [id number] 2012 Medicare [id number] 1969 Unknown [id number] Unknown [id number]. 462 Unknown [id number]. 462 Unknown [id number]. 462 Unknown [id number]. 462 Unknown [id number]. 462 Unknown [id number]. 462 Unknown [id number]. 462 Unknown [id number]. 462 Unknown [id number]. 462 Unknown [id number]. 462 Unknown [id number]. 462 Unknown [id number] 462 Unknown [id number] 462 Unknown [id number] 462 Social History Date Type Detail Facility Start: 05-12-2019 End: 11-03-2022 Tobacco smoking status MIIS Current every day smoker [place] Start: 05-12-2019 End: 07-27-2023 Cigarettes smoked current (pack per day) - Reported [facility] Start: 05-12-2019 End: 07-27-2023 Alcohol intake No [facility] Start: 1970 Sex Assigned At Not on file [place] Start: 05-15-2020 End: 11-03-2022 Tobacco use and exposure Never used [place] Start: 05-15-2020 End: 07-27-2023 Alcohol intake Current non-drinker of alcohol (finding) [employer] Phone: Start: 07-01-2019 End: 11-25-2022 History SDOH Alcohol Frequency 1 [employer] [facility]: Start: 09-13-2019 History SDOH Social Connections Phone 3 [employer] [facility]: Start: 09-13-2019 History SDOH [employer] Membership 2 [employer]: Start: 09-13-2019 History SDOH [employer] Living 5 [employer] [facility]: Start: 09-13-2019 End: 11-25-2022 History SDOH Physical Activity DPW 0 [employer] [facility]: Start: 07-01-2022 End: 05-15-2023 Exposure to SARS-CoV-2 (event) Not sure [place] Start: 03-21-2022 End: 12-01-2023 Tobacco smoking status NHIS Unknown if ever smoked [facility] [place] [facility] Start: 03-30-2020 None [facility] Start: 06-18-2020 With Family [facility] Start: 12-26-2020 Cigarettes [facility] Start: 1970 Sex Assigned At Female [facility] History of tobacco use Cigarette Smoker [facility] How often to you hav e a drink containing alcohol? Never [facility] How many standard drinks containing alcohol do you have on a typical day? Patient does not drink [facility] Start: 03-05-2023 Tobacco smoking status Light t obacco smoker (finding) [facility] Sex Assigned At Sex [facility] Start: 10-09-2015 [facility] Start: 01-23-2009 Tobacco Comment increased to 2 ppd in 2002 with acute stress. 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 FDA Start: 08-24-2018 Cage Modulus Xl [id number] 10deg - [id number] Start: 11-06-2022 Screw Reline-O 2 s Pa 6.5x50 - [id number] Start: 11-06-2022 Screw Reline-O 2 s Pa 8.5x50 - [id number] Start: 11-06-2022 Screw Reline-O 2 s Pa 5.5x50 - [id number] Start: 11-06-2022 Pako Reline-O Ti 5.5x55 Lord - [id number] Start: 11-06-2022 Pako Reline-O Ti 5.5x40 Lord - [id number] Start: 11-06-2022 Screw Reline Ope n Tulip 5.5 - [id number] Start: 11-06-2022 Pt has unknown aneurysm [...] visits Functional Status Date Assessment Result Facility 04-17-2025 Functional status Ambulates [facility] Work Phone: 03-05-2023 Functional Status Ambulating in bolden, Ambulating in room, Awake [facility] Mental Status Date Assessment Result Facility 04-17-2025 Cognitive function Voice/Name [facility] Work Phone: 03-05-2023 Mental Status Oriented x 4 [facility] 09-23-2022 Cognitive function Level Of Cons ciousness Awake;Alert;Appropriate;Follow s Commands [facility] Work Phone: 08-24-2022 Cognitive function Voice/Name [facility] Work Phone: 03-21-2022 Cognitive function Level Of Cons ciousness Awake;Alert;Appropriate;Follow s Commands [facility] Work Phone: Clinical Notes 07-11-2022 to 04-17-2025 Note Date & Type Note Facility 04-17-2025 Discharge summary Note Date/Time April 17, 2025 2:04pm [facility] Medical Records Department [address] [place] [address] Discharge Summary 04/17/25 1358 MR#: [id number] Acct: [id number] Name: ORTIZ MASON Rep #:[id number] : 1970 55 From: Alfred Sotomayor DO PCP: Dr. Amandeep Loredo DO Status:AD M MARTINA Location: [place] [address] Providers Date of Admission: 04/15/25 Primary Care Physician: Dr. Amandeep Loredo DO Reason For Visit: INTRACTABLE N/V, CONCERN FOR SEIZURE, CONCERN FOR Diagnosis Discharge Diagnosis (1) Intractable nausea and vomiting: Status: Acute Code(s): R11.2 - Nausea with vomiting, unspecified (2) Pneumonia: Status: Acute Code(s): J18.9 - Pneumonia, unspecified organism Plan Intractable nausea and vomiting * resolving. Has not vomited since admissin. IV zofran and compazine prn * tolerating diet Suspected pneumococcal pneumonia * Chest x-ray then showed right lower lobe airspace disease concerning for pneumonitis versus pneumonia. * DC with levofloxacin for 5 days. Chest pain * Patient complaining of retrosternal chest pain.It seems to be related to MSK pain from the coughing from pneumonia * she however tells me she had a history of a mild heart attack years ago * EKG showed no acute ST changes. * troponins negative. Chronic conditions: * seizure disorder: there was concern for breakthrough seizure in the ED. on IV Keppra. Nausea has abated, so will resume PO keppra. * GERD: on PPI DVT prophylaxis: lovenox Medications at Discharge Home Medications kzacotza-isln-bywq 8 mg-folic 400 mcg-K 50 mcg-lutein 300 mcg tablet 1 tab PO DAILY supplement 03/21/19 levetiracetam 750 mg tablet 1,500 mg PO Q12H seizures 12/04/19 fluticasone propionate 50 mcg/actuation nasal spray,suspension (Flonase Allergy Relief) 1 spray intranasal DAILY 08/24/22 cyclobenzaprine 10 mg tablet 10 mg PO TID PRN Muscle Spasm #20 TABLETS 05/11/24 gabapentin 400 mg capsule 800 mg PO Q12H 09/04/24 omeprazole 20 mg capsule,delayed release 20 mg PO BID 09/04/24 tizanidine 2 mg capsule 2 mg PO TID PRN muscle spasticity #14 caps 10/21/24 metaxalone 800 mg tablet 800 mg PO TID 7 days #21 tabs 03/14/25 oxycodone-acetaminophen 5 mg-325 mg tablet 1 tab PO Q4H PRN Pain 04/15/25 guaifenesin 600 mg tablet, extended release 12 hr (Mucinex) 600 mg PO BID #10 tabs 04/17/25 levofloxacin 750 mg tablet 750 mg PO Q24H #5 tabs 04/17/25 Hospital Course Operations None Procedures None Summary of Care Provided Minutes Spent on Discharge: 32 Hospital Course: Patient presents with nausea and vomiting shortness of breath. She was found tohave pneumonia and started on IV levofloxacin. Nausea vomiting is improved as well as shortness of breath. Patient did have chest pain but did have serial troponins that was negative. [place] to be related with costochondritis due to thecoughing. Patient be discharged with 5-day course of levofloxacin. Weight / BMI Weight Weight: 81.8 kg Body Mass Index (BMI) 26.6 ABG / Lab / Microbiology Data 04/17/25 04:57 04/17/25 04:57 Laboratory: Laboratory Results - last 24 hr 04/17/25 04:57: WBC 5.9, RBC 4.41, Hgb 13.8, Hct 42.7, MCV 96.8, MCH 31.3, MCHC 32.3, RDW Std Deviation 45.3 H, RDW Coeff of Bere 12.8, Plt Count 287, MPV 9.6, Immature Gran % (Auto) 0.500, Neut % (Auto) 58.2, Lymph % (Auto) 32.7, [place] % (Auto) 6.9, Eos % (Auto) 1.2, Baso % (Auto) 0.5, Absolute Neuts (auto) 3.5, Absolute Lymphs (auto) 1.94, Nucleated RBC % 0, Sodium 142, Potassium 3.3, Chloride 109 H, Carbon Dioxide 20.2 L, Anion Gap 13, BUN 12, Creatinine 0.62 L, Estim Creat Clear Calc 115.87, Est GFR (MDRD) Non-Af 104, BUN/Creatinine Ratio 20.0, Glucose 130 H, Calcium 8.6 D/C Instructions DC O2, CPAP, BIPAP Needs Home O2 Discharge instructions: No Meaningful Use Info Meaningful Use Meaningful Use Diagnoses (Choose all that apply): None applicable Discharge Plan Admission Admit Date/Time: 04/15/25 18:33 Primary Reason for Your Visit: pneumonia Attending Provider: Alfred Sotomayor Primary Care Provider: Amandeep Loredo Consulting Providers: Hany Gooden; Karla Elizondo Discharge Orders/Prescriptions Prescriptions: New guaifenesin [Mucinex] 600 mg Tablet Extended Release 12hr 600 mg PO BID Qty: 10 0RF levofloxacin 750 mg tablet 750 mg PO Q24H Qty: 5 0RF Continued ooxpndcu-jmk-bltu-FA-vit K-lut 1 EACH tablet 1 tab PO DAILY levetiracetam 750 MG tablet 1,500 mg PO Q12H fluticasone propionate [Flonase Allergy Relief] 50 mcg/actuation [place],Suspension 1 spray INTRANASAL DAILY Rx Instructions: administer into each nostril cyclobenzaprine 10 mg tablet 10 mg PO TID PRN (Reason: Muscle Spasm) Qty: 20 0RF omeprazole 20 mg capsule,delayed release(DR/EC) 20 mg PO BID gabapentin 400 mg capsule 800 mg PO Q12H tizanidine 2 mg capsule 2 mg PO TID PRN (Reason: muscle spasticity) Qty: 14 0RF oxycodone-acetaminophen 5-325 mg tablet 1 tab PO Q4H PRN (Reason: Pain) metaxalone 800 mg tablet 800 mg PO TID 7 Days Qty: 21 0RF Discontinued oxycodone-acetaminophen [Percocet] 5-325 mg tablet 1 tab PO Q6H PRN (Reason: pain) 5 Days Qty: 20 0RF levetiracetam [Keppra] 1,000 mg tablet 1,000 mg PO Q12H oxycodone-acetaminophen [Percocet] 5-325 mg tablet 1 tab PO Q6H PRN (Reason: pain) 4 Days Qty: 12 0RF azithromycin 250 mg tablet 250 mg PO DAILY Qty: 4 0RF Referrals / Follow Up: Amandeep Loredo DO [Primary Care Provider] - Within 2 Weeks Disposition Disposition (needs filled in before D/C Order can be placed): Home, Self Care Charges/Coding Visit Charges Inpatient E&M: 41143 Disch Hosp >30min 04/17/25 1404 <Electronically signed by Alfred Sotomayor DO> Cosigner Signature (if applicable): CC: Dr. Alfred Sotomayor DO; Dr. Amandeep Loredo DO~ Signed [facility] Work Phone: 1(567) 319-493008-25-2025 Progress note Author Alfred Sotomayor [facility] Note Date/Time April 17, 2025 1: 58pm [facility] Medical Records Department [address] [place] [address] Progress Note - Hospitalist 04/17/25 0841 MR#: [id number] Acct: [id number] Name: ORTIZ MASON Rep #:[id number] : 1970 55 From: Alfred Sotomayor DO PCP: Dr. Amandeep Loredo DO Status:AD M MARTINA Location: [place] [address] Reason for Visit Chief Complaint: Intractable nausea and vomiting Subjective Subjective Nausea vomiting and shortness of breath improved. Objective Data Objective Data Vital Signs: Vital Signs Temp Pulse Resp BP Pulse Ox O2 Del Method O2 Flow Rate 36.3 C L 75 20 H 128/78 H 98 Room Air 2 04/17/25 04:55 04/17/25 06:47 04/17/25 06:47 04/17/25 04:55 04/17/25 06:47 04/17/25 07:55 04/17/25 06:47 Oxygen Flow Rate (L/min) 2 Oxygen Delivery Method Room Air Weight: 81.8 kg Body Mass Index (BMI) 26.6 Intake & Output: Intake and Output for Last 24 Hours 04/15/25 04/16/25 04/17/25 23:59 23:59 23:59 Intake Total 350 / 350 880 / 880 180 / 180 Output Total 0 / 0 Balance 350 / 350 880 / 880 180 / 180 Lab / Micro Data 04/17/25 04:57 04/17/25 04:57 Labs: Laboratory Results - last 24 hr 04/16/25 06:10: Troponin T High Sens < 6 04/16/25 09:11: Troponin T Hi Sens 2 Hr < 6 04/16/25 11:10: Troponin T Hi Sens 4Hr < 6 04/17/25 04:57: WBC 5.9, RBC 4.41, Hgb 13.8, Hct 42.7, MCV 96.8, MCH 31.3, MCHC 32.3, RDW Std Deviation 45.3 H, RDW Coeff of Bere 12.8, Plt Count 287, MPV 9.6, Immature Gran % (Auto) 0.500, Neut % (Auto) 58.2, Lymph % (Auto) 32.7, [place] % (Auto) 6.9, Eos % (Auto) 1.2, Baso % (Auto) 0.5, Absolute Neuts (auto) 3.5, Absolute Lymphs (auto) 1.94, Nucleated RBC % 0, Sodium 142, Potassium 3.3, Chloride 109 H, Carbon Dioxide 20.2 L, Anion Gap 13, BUN 12, Creatinine 0.62 L, Estim Creat Clear Calc 115.87, Est GFR (MDRD) Non-Af 104, BUN/Creatinine Ratio 20.0, Glucose 130 H, Calcium 8.6 Physical Exam Const alert and no apparent distress HEENT head/scalp atraumatic and moist oral mucous membranes Resp normal respiratory effort, no retractions, no use of accessory muscles and clearto auscultation bilaterally Cardio regular rate, regular rhythm, S1 normal heart sound and S2 normal heart sound GI normal to inspection, nondistended, normoactive bowel sounds, soft to palpation,non-tender and non-distended Extremity normal to inspection, full ROM and no clubbing, cyanosis or edema Neuro oriented x3, CN's II-XII intact bilaterally and moves all extremities Sensorium / Orientation: awake and alert Assessment & Plan Assessment/Plan (1) Intractable nausea and vomiting: (2) Pneumonia: PLAN: Plan Intractable nausea and vomiting * resolving. Has not vomited since admissin. IV zofran and compazine prn * tolerating diet Suspected pneumococcal pneumonia * Chest x-ray then showed right lower lobe airspace disease concerning for pneumonitis versus pneumonia. * DC with levofloxacin for 5 days. Chest pain * Patient complaining of retrosternal chest pain.It seems to be related to MSK pain from the coughing from pneumonia * she however tells me she had a history of a mild heart attack years ago * EKG showed no acute ST changes. * troponins negative. Chronic conditions: * seizure disorder: there was concern for breakthrough seizure in the ED. on IV Keppra. Nausea has abated, so will resume PO keppra. * GERD: on PPI DVT prophylaxis: lovenox 04/17/25 1358 <Electronically signed by Alfred Sotomayor DO> Cosigner Signature (if applicable): CC: ~ Signed [facility] Work Phone: 1(689) 109-966808-25-2025 Consult note [facility] Medical Records Department [address] [place] [address] Counseling Note - Pharmacy 04/17/25 6683 MR#: [id number] Acct: [id number] Name: ORTIZ MASON Rep #:[id number] : 1970 55 From: Arlin Posey PCP: Dr. Amandeep Loredo, Status:NIHARIKA M MARTINA Y Location: [place] [address] Pharmacy [facility] Counseling Pharmacy Service has performed discharge medication reconciliation and counseling for this patient. 1. LEVOFLOXACIN 750MG PO DAILY X 5 DAYS 2. GUAIFENESIN 600MG PO BID X 5 DAYS The patient's discharge medication list was reviewed for discrepancies and discrepancies were resolved. The patient was counseled on the following discharge medications and changes in medications for homegoing were reviewed. The Reason for Use, instructions for use, and potential side effects were reviewed for all new medications. The patient's questions regarding all of their medications were answered. The patient was able to verbally demonstrate an understanding of their dischargemedications. Medications at Discharge Home Medications zcapqbpk-nggj-reui 8 mg-folic 400 mcg-K 50 mcg-lutein 300 mcg tablet 1 tab PO DAILY supplement 03/21/19 levetiracetam 750 mg tablet 1,500 mg PO Q12H seizures 12/04/19 fluticasone propionate 50 mcg/actuation nasal spray,suspension (Flonase Allergy Relief) 1 spray intranasal DAILY 08/24/22 cyclobenzaprine 10 mg tablet 10 mg PO TID PRN Muscle Spasm #20 TABLETS 05/11/24 gabapentin 400 mg capsule 800 mg PO Q12H nerve pain 09/04/24 omeprazole 20 mg capsule,delayed release 20 mg PO BID reflux 09/04/24 tizanidine 2 mg capsule 2 mg PO TID PRN muscle spasticity #14 caps 10/21/24 metaxalone 800 mg tablet 800 mg PO TID pain 7 days #21 tabs 03/14/25 oxycodone-acetaminophen 5 mg-325 mg tablet 1 tab PO Q4H PRN Pain 04/15/25 guaifenesin 600 mg tablet, extended release 12 hr (Mucinex) 600 mg PO BID #10 tabs 04/17/25 levofloxacin 750 mg tablet 750 mg PO Q24H #5 tabs 04/17/25 04/17/25 1520 Date _ Arlin Garciaigner Signature (if applicable): Date CC: ~ Signed [facility]08-25-2025 Discharge summary [facility] Medical Records Department [address] [place] [address] Discharge Summary 04/17/25 1358 MR#: [id number] Acct: [id number] Name: ORTIZ MASON Rep #:[id number] : 1970 55 From: Alfred Sotomayor DO PCP: Dr. Amandeep Loredo DO Status:NIHARIKA MACK Location: [place] [address] Providers Date of Admission: 04/15/25 Primary Care Physician: Dr. Amandeep Loredo DO Reason For Visit: INTRACTABLE N/V, CONCERN FOR SEIZURE, CONCERN FOR Diagnosis Discharge Diagnosis (1) Intractable nausea and vomiting: Status: Acute Code(s): R11.2 - Nausea with vomiting, unspecified (2) Pneumonia: Status: Acute Code(s): J18.9 - Pneumonia, unspecified organism Plan Intractable nausea and vomiting * resolving. Has not vomited since admissin. IV zofran and compazine prn * tolerating diet Suspected pneumococcal pneumonia * Chest x-ray then showed right lower lobe airspace disease concerning for pneumonitis versus pneumonia. * DC with levofloxacin for 5 days. Chest pain * Patient complaining of retrosternal chest pain.It seems to be related to MSK pain from the coughing from pneumonia * she however tells me she had a history of a mild heart attack years ago * EKG showed no acute ST changes. * troponins negative. Chronic conditions: * seizure disorder: there was concern for breakthrough seizure in the ED. on IV Keppra. Nausea has abated, so will resume PO keppra. * GERD: on PPI DVT prophylaxis: lovenox Medications at Discharge Home Medications qretlafz-etrh-jrwp 8 mg-folic 400 mcg-K 50 mcg-lutein 300 mcg tablet 1 tab PO DAILY supplement 03/21/19 levetiracetam 750 mg tablet 1,500 mg PO Q12H seizures 12/04/19 fluticasone propionate 50 mcg/actuation nasal spray,suspension (Flonase Allergy Relief) 1 spray intranasal DAILY 08/24/22 cyclobenzaprine 10 mg tablet 10 mg PO TID PRN Muscle Spasm #20 TABLETS 05/11/24 gabapentin 400 mg capsule 800 mg PO Q12H 09/04/24 omeprazole 20 mg capsule,delayed release 20 mg PO BID 09/04/24 tizanidine 2 mg capsule 2 mg PO TID PRN muscle spasticity #14 caps 10/21/24 metaxalone 800 mg tablet 800 mg PO TID 7 days #21 tabs 03/14/25 oxycodone-acetaminophen 5 mg-325 mg tablet 1 tab PO Q4H PRN Pain 04/15/25 guaifenesin 600 mg tablet, extended release 12 hr (Mucinex) 600 mg PO BID #10 tabs 04/17/25 levofloxacin 750 mg tablet 750 mg PO Q24H #5 tabs 04/17/25 Hospital Course Operations None Procedures None Summary of Care Provided Minutes Spent on Discharge: 32 Hospital Course: Patient presents with nausea and vomiting shortness of breath. She was found tohave pneumonia and started on IV levofloxacin. Nausea vomiting is improved as well as shortness of breath. Patient did have chest pain but did have serial troponins that was negative. [place] to be related with costochondritis due to thecoughing. Patient be discharged with 5-day course of levofloxacin. Weight / BMI Weight Weight: 81.8 kg Body Mass Index (BMI) 26.6 ABG / Lab / Microbiology Data 04/17/25 04:57 04/17/25 04:57 Laboratory: Laboratory Results - last 24 hr 04/17/25 04:57: WBC 5.9, RBC 4.41, Hgb 13.8, Hct 42.7, MCV 96.8, MCH 31.3, MCHC 32.3, RDW Std Deviation 45.3 H, RDW Coeff of Bere 12.8, Plt Count 287, MPV 9.6, Immature Gran % (Auto) 0.500, Neut % (Auto) 58.2, Lymph % (Auto) 32.7, [place] % (Auto) 6.9, Eos % (Auto) 1.2, Baso % (Auto) 0.5, Absolute Neuts (auto) 3.5, Absolute Lymphs (auto) 1.94, Nucleated RBC % 0, Sodium 142, Potassium 3.3, Chloride 109 H, Carbon Dioxide 20.2 L, Anion Gap 13, BUN 12, Creatinine 0.62 L, Estim Creat Clear Calc 115.87, Est GFR (MDRD) Non-Af 104, BUN/Creatinine Ratio 20.0, Glucose 130 H, Calcium 8.6 D/C Instructions DC O2, CPAP, BIPAP Needs Home O2 Discharge instructions: No Meaningful Use Info Meaningful Use Meaningful Use Diagnoses (Choose all that apply): None applicable Discharge Plan Admission Admit Date/Time: 04/15/25 18:33 Primary Reason for Your Visit: pneumonia Attending Provider: Alfred Sotomayor Primary Care Provider: Amandeep Loredo Consulting Providers: Hany Gooden; Karla Elizondo Discharge Orders/Prescriptions Prescriptions: New guaifenesin [Mucinex] 600 mg Tablet Extended Release 12hr 600 mg PO BID Qty: 10 0RF levofloxacin 750 mg tablet 750 mg PO Q24H Qty: 5 0RF Continued khqgidem-agy-vmxr-FA-vit K-lut 1 EACH tablet 1 tab PO DAILY levetiracetam 750 MG tablet 1,500 mg PO Q12H fluticasone propionate [Flonase Allergy Relief] 50 mcg/actuation [place],Suspension 1 spray INTRANASAL DAILY Rx Instructions: administer into each nostril cyclobenzaprine 10 mg tablet 10 mg PO TID PRN (Reason: Muscle Spasm) Qty: 20 0RF omeprazole 20 mg capsule,delayed release(DR/EC) 20 mg PO BID gabapentin 400 mg capsule 800 mg PO Q12H tizanidine 2 mg capsule 2 mg PO TID PRN (Reason: muscle spasticity) Qty: 14 0RF oxycodone-acetaminophen 5-325 mg tablet 1 tab PO Q4H PRN (Reason: Pain) metaxalone 800 mg tablet 800 mg PO TID 7 Days Qty: 21 0RF Discontinued oxycodone-acetaminophen [Percocet] 5-325 mg tablet 1 tab PO Q6H PRN (Reason: pain) 5 Days Qty: 20 0RF levetiracetam [Keppra] 1,000 mg tablet 1,000 mg PO Q12H oxycodone-acetaminophen [Percocet] 5-325 mg tablet 1 tab PO Q6H PRN (Reason: pain) 4 Days Qty: 12 0RF azithromycin 250 mg tablet 250 mg PO DAILY Qty: 4 0RF Referrals / Follow Up: Amandeep Loredo DO [Primary Care Provider] - Within 2 Weeks Disposition Disposition (needs filled in before D/C Order can be placed): Home, Self Care Charges/Coding Visit Charges Inpatient E&M: 51268 Disch Hosp >30min 04/17/25 1404 Cosigner Signature (if applicable): CC: Dr. Alfred Sotomayor DO; Dr. Amandeep Loredo DO~ Signed [facility]08-25-2025 [facility] Medical Records Department [address] [place] [address] Discharge Summary 04/17/25 1358 MR#: [id number] Acct: [id number] Name: ORTIZ MASON Rep #: [id number] : 1970 55 From: Alfred Sotomayor DO PCP: Dr. Amandeep Loredo DO Status:ADM MARTINA Location: [place] [address] Providers Date of Admission: 04/15/25 Primary Care Physician: Dr. Amandeep Loredo DO Reason For Visit: INTRACTABLE N/V, CONCERN FOR SEIZURE, CONCERN FOR Diagnosis Discharge Diagnosis (1) Intractable nausea and vomiting: Status: Acute Code(s): R11.2 - Nausea with vomiting, unspecified (2) Pneumonia: Status: Acute Code(s): J18.9 - Pneumonia, unspecified organism Plan Intractable nausea and vomiting * resolving. Has not vomited since admissin. IV zofran and compazine prn * tolerating diet Suspected pneumococcal pneumonia * Chest x-ray then showed right lower lobe airspace disease concerning for pneumonitis versus pneumonia. * DC with levofloxacin for 5 days. Chest pain * Patient complaining of retrosternal chest pain.It seems to be related to MSK pain from the coughing from pneumonia * she however tells me she had a history of a mild heart attack years ago * EKG showed no acute ST changes. * troponins negative. Chronic conditions: * seizure disorder: there was concern for breakthrough seizure in the ED. on IV Keppra. Nausea has abated, so will resume PO keppra. * GERD: on PPI DVT prophylaxis: lovenox Medications at Discharge Home Medications prhsjmnt-gvqs-jiix 8 mg-folic 400 mcg-K 50 mcg-lutein 300 mcg tablet 1 tab PO DAILY supplement 03/21/19 levetiracetam 750 mg tablet 1,500 mg PO Q12H seizures 12/04/19 fluticasone propionate 50 mcg/actuation nasal spray,suspension (Flonase Allergy Relief) 1 spray intranasal DAILY 08/24/22 cyclobenzaprine 10 mg tablet 10 mg PO TID PRN Muscle Spasm #20 TABLETS 05/11/24 gabapentin 400 mg capsule 800 mg PO Q12H 09/04/24 omeprazole 20 mg capsule,delayed release 20 mg PO BID 09/04/24 tizanidine 2 mg capsule 2 mg PO TID PRN muscle spasticity #14 caps 10/21/24 metaxalone 800 mg tablet 800 mg PO TID 7 days #21 tabs 03/14/25 oxycodone-acetaminophen 5 mg-325 mg tablet 1 tab PO Q4H PRN Pain 04/15/25 guaifenesin 600 mg tablet, extended release 12 hr (Mucinex) 600 mg PO BID #10 tabs 04/17/25 levofloxacin 750 mg tablet 750 mg PO Q24H #5 tabs 04/17/25 Hospital Course Operations None Procedures None Summary of Care Provided Minutes Spent on Discharge: 32 Hospital Course: Patient presents with nausea and vomiting shortness of breath. She was found to have pneumonia and started on IV levofloxacin. Nausea vomiting is improved as well as shortness of breath. Patient did have chest pain but did have serial troponins that was negative. [place] to be related with costochondritis due to the coughing. Patient be discharged with 5-day course of levofloxacin. Weight / BMI Weight Weight: 81.8 kg Body Mass Index (BMI) 26.6 ABG / Lab / Microbiology Data 04/17/25 04:57 04/17/25 04:57 Laboratory: Laboratory Results - last 24 hr 04/17/25 04:57: WBC 5.9, RBC 4.41, Hgb 13.8, Hct 42.7, MCV 96.8, MCH 31.3, MCHC 32.3, RDW Std Deviation 45.3 H, RDW Coeff of Bere 12.8, Plt Count 287, MPV 9.6, Immature Gran % (Auto) 0.500, Neut % (Auto) 58.2, Lymph % (Auto) 32.7, [place] % (Auto) 6.9, Eos % (Auto) 1.2, Baso % (Auto) 0.5, Absolute Neuts (auto) 3.5, Absolute Lymphs (auto) 1.94, Nucleated RBC % 0, Sodium 142, Potassium 3.3, C hloride 109 H, Carbon Dioxide 20.2 L, Anion Gap 13, BUN 12, Creatinine 0.62 L, Estim Creat Clear Calc 115.87, Est GFR (MDRD) Non-Af 104, BUN/Creatinine Ratio 20.0, Glucose 130 H, Calcium 8.6 D/C Instructions DC O2, CPAP, BIPAP Needs Home O2 Discharge instructions: No Meaningful Use Info Meaningful Use Meaningful Use Diagnoses (Choose all that apply): None applicable Discharge Plan Admission Admit Date/Time: 04/15/25 18:33 Primary Reason for Your Visit: pneumonia Attending Provider: Alfred Sotomayor Primary Care Provider: Amandeep Loredo Consulting Providers: Hnay Gooden; Karla Elizondo Discharge Orders/Prescriptions Prescriptions: New guaifenesin [Mucinex] 600 mg Tablet Extended Release 12hr 600 mg PO BID Qty: 10 0RF levofloxacin 750 mg tablet 750 mg PO Q24H Qty: 5 0RF Continued lxlahwqk-npt-gsdn-FA-vit K-lut 1 EACH tablet 1 tab PO DAILY levetiracetam 750 MG tablet 1,500 mg PO Q12H fluticasone propionate [Flonase Allergy Relief] 50 mcg/actuation [place],Suspension 1 spray INTRANASAL DAILY Rx Instructions: administer into each nostril cyclobenzaprine 10 mg tablet 10 mg PO TID PRN (Reason: Muscle Spasm) Qty: 20 0RF omeprazole 20 mg capsule,delayed release(DR/EC) 20 mg PO BID gabapentin 400 mg capsule 800 mg PO Q12H tizanidine 2 mg capsule 2 mg PO TID PRN ( (more content not included)...[facility] 04-17-2025 Progress note [facility] Medical Records Department [address] [place] [address] Progress Note - Hospitalist 04/17/25 0841 MR#: [id number] Acct: [id number] Name: ORTIZ MASON Rep #:[id number] : 1970 55 From: Alfred Sotomayor DO PCP: Dr. Amandeep Loredo, DO Status:AD M [facility] Location: [place] [address] Reason for Visit Chief Complaint: Intractable nausea and vomiting Subjective Subjective Nausea vomiting and shortness of breath improved. Objective Data Objective Data Vital Signs: Vital Signs Temp Pulse Resp BP Pulse Ox O2 Del Method O2 Flow Rate 36.3 C L 75 20 H 128/78 H 98 Room Air 2 04/17/25 04:55 04/17/25 06:47 04/17/25 06:47 04/17/25 04:55 04/17/25 06:47 04/17/25 07:55 04/17/25 06:47 Oxygen Flow Rate (L/min) 2 Oxygen Delivery Method Room Air Weight: 81.8 kg Body Mass Index (BMI) 26.6 Intake & Output: Intake and Output for Last 24 Hours 04/15/25 04/16/25 04/17/25 23:59 23:59 23:59 Intake Total 350 / 350 880 / 880 180 / 180 Output Total 0 / 0 Balance 350 / 350 880 / 880 180 / 180 Lab / Micro Data 04/17/25 04:57 04/17/25 04:57 Labs: Laboratory Results - last 24 hr 04/16/25 06:10: Troponin T High Sens < 6 04/16/25 09:11: Troponin T Hi Sens 2 Hr < 6 04/16/25 11:10: Troponin T Hi Sens 4Hr < 6 04/17/25 04:57: WBC 5.9, RBC 4.41, Hgb 13.8, Hct 42.7, MCV 96.8, MCH 31.3, MCHC 32.3, RDW Std Deviation 45.3 H, RDW Coeff of Bere 12.8, Plt Count 287, MPV 9.6, Immature Gran % (Auto) 0.500, Neut % (Auto) 58.2, Lymph % (Auto) 32.7, Ciales % (Auto) 6.9, Eos % (Auto) 1.2, Baso % (Auto) 0.5, Absolute Neuts (auto) 3.5, Absolute Lymphs (auto) 1.94, Nucleated RBC % 0, Sodium 142, Potassium 3.3, Chloride 109 H, Carbon Dioxide 20.2 L, Anion Gap 13, BUN 12, Creatinine 0.62 L, Estim Creat Clear Calc 115.87, Est GFR (MDRD) Non-Af 104, BUN/Creatinine Ratio 20.0, Glucose 130 H, Calcium 8.6 Physical Exam Const alert and no apparent distress HEENT head/scalp atraumatic and moist oral mucous membranes Resp normal respiratory effort, no retractions, no use of accessory muscles and clearto auscultation bilaterally Cardio regular rate, regular rhythm, S1 normal heart sound and S2 normal heart sound GI normal to inspection, nondistended, normoactive bowel sounds, soft to palpation,non-tender and non-distended Extremity normal to inspection, full ROM and no clubbing, cyanosis or edema Neuro oriented x3, CN's II-XII intact bilaterally and moves all extremities Sensorium / Orientation: awake and alert Assessment & Plan Assessment/Plan (1) Intractable nausea and vomiting: (2) Pneumonia: PLAN: Plan Intractable nausea and vomiting * resolving. Has not vomited since admissin. IV zofran and compazine prn * tolerating diet Suspected pneumococcal pneumonia * Chest x-ray then showed right lower lobe airspace disease concerning for pneumonitis versus pneumonia. * DC with levofloxacin for 5 days. Chest pain * Patient complaining of retrosternal chest pain.It seems to be related to MSK pain from the coughing from pneumonia * she however tells me she had a history of a mild heart attack years ago * EKG showed no acute ST changes. * troponins negative. Chronic conditions: * seizure disorder: there was concern for breakthrough seizure in the ED. on IV Keppra. Nausea has abated, so will resume PO keppra. * GERD: on PPI DVT prophylaxis: lovenox 04/17/25 1358 Cosigner Signature (if applicable): CC: ~ Signed [facility]08-25-2025 Telephone encounter Note* Telephone Encounter - Daiana Carvajal MA - 04/17/2025 8:48 AM EDT Triage message reviewed with clinical staff. [id number] Miscellaneous Notes* Telephone Encounter - Daiana Carvajal MA - 04/17/2025 8:48 AM EDT Triage message reviewed with clinical staff. * Telephone Encounter - Melisa Valero RN - 04/14/2025 2:31 PM EDT S: Patient spoke with [facility] nurse regarding B: Onset of symptoms/concern ED 04/14/25 A: Sharp pain in center of back with cough. Seen [place] ED today. Reports EKG and Xray performed and diagnosed with pneumonia. Was given antibiotic at ED and RX for home antibiotic. Reports she is having sharp pain after the morphine given in ED wore off. The pain is worsening since prior to ED visit and states she is unable to lye flat which is a new symptom. She is tearful. She states she is having hard time getting enough air to form sentences and experiencing tingling around her mouth. She is home with her spouse R: Advised to report to ED [facility] Advised to have another adult drive, take medication list, ID and insurance card. Encouraged as symptoms worsened to call 911 due to difficultly breathing and tinglingaround mouth. Will report to [facility]. TE to PCP for notification. Reason for Disposition Sounds like a life-threatening emergency to the triager Protocols used: Recent Medical Visit for Illness Follow-up [id number] documented in this [facility]08-24-2025 Progress note Author Karla Rohitdestiny [facility] Note Date/Time April 16, 2025 1: [address] [place] [address] System Medical Records Department [address] [place] [address] Progress Note 04/16/25 1255 MR#: [id number] Acct: [id number] Name: ORTIZ MASON Rep #:[id number] : 1970 55 From: Karla Elizondo MD PCP: Dr. Amandeep Loredo, DO Status:[facility] Location: [place] [address] Subjective Subjective Patient seen and examined. She was admitted with a complaint of incessant nauseaand vomiting. She was recently started on oral azithromycin on outpatient basis for pneumonia, and this was thought to be the possible cause of her symptoms. Objective Data Objective Data Vital Signs: Vital Signs Temp Pulse Resp BP Pulse Ox O2 Del Method O2 Flow Rate 98.0 F 62 18 132/84 H 94 Room Air 2 04/16/25 07:53 04/16/25 12:48 04/16/25 12:48 04/16/25 07:53 04/16/25 07:53 04/16/25 07:53 04/16/25 03:20 Oxygen Flow Rate (L/min) 2 Oxygen Delivery Method Room Air Weight: 180 lb 5.41 oz Body Mass Index (BMI) 26.6 Intake & Output: Intake and Output for Last 24 Hours 04/14/25 04/15/25 04/16/25 23:59 23:59 23:59 Intake Total 350 / 350 165 / 165 Balance 350 / 350 165 / 165 Lab / Micro Data 04/16/25 06:10 04/16/25 06:10 Labs: Laboratory Results - last 24 hr 04/15/25 17:33: WBC 7.2, RBC 4.90, Hgb 15.3 H, Hct 45.9, MCV 93.7, MCH 31.2, MCHC 33.3, RDW Std Deviation 43.8, RDW Coeff of Bere 12.7, Plt Count 327, MPV 9.6, Immature Gran % (Auto) 0.300, Neut % (Auto) 70.2 H, Lymph % (Auto) 21.7, Ciales % (Auto) 6.4, Eos % (Auto) 0.8, Baso % (Auto) 0.6, Absolute Neuts (auto) 5.0, Absolute Lymphs (auto) 1.56, Nucleated RBC % 0, Sodium 142, Potassium 3.5, Chloride 106, Carbon Dioxide 21.9, Anion Gap 14, BUN 6, Creatinine 0.55 L, EstimCreat Clear Calc 129.45, Est GFR (MDRD) Non-Af 108, BUN/Creatinine Ratio 11.4, Glucose 105 H, Calcium 9.4, Phosphorus 3.1, Magnesium 2.2 04/15/25 18:51: POC Glucose 103 04/16/25 06:10: WBC 6.3, RBC 4.84, Hgb 14.9, Hct 45.2, MCV 93.4, MCH 30.8, MCHC 33.0, RDW Std Deviation 43.3, RDW Coeff of Bere 12.7, Plt Count 315, MPV 9.6, Sodium 141, Potassium 3.8, Chloride 107, Carbon Dioxide 21.0, Anion Gap 12, BUN 8, Creatinine 0.58 L, Estim Creat Clear Calc 123.86, Est GFR (MDRD) Non-Af 106, BUN/Creatinine Ratio 14.7, Glucose 95, Calcium 9.1, Troponin T High Sens < 6 04/16/25 09:11: Troponin T Hi Sens 2 Hr < 6 04/16/25 11:10: Troponin T Hi Sens 4Hr < 6 Physical Exam Const alert, oriented x3 and no apparent distress HEENT normocephalic, head/scalp atraumatic, moist oral mucous membranes and oropharynxnormal Eyes EOMs intact bilaterally Neck no lymphadenopathy and supple Lymph Lymphatic: no lymphedema noted Resp Resp Narrative: mildly diminished breath sounds bibasally, no wheezes or crackles. On room air. Cardio regular rate, regular rhythm, S1 normal heart sound, S2 normal heart sound and no murmurs GI normal to inspection, nondistended, normoactive bowel sounds, soft to palpation,non-tender and non-distended Extremity normal capillary refill Neuro CN's II-XII intact bilaterally and no focal motor deficits Motor Exam: strength 5/5 throughout and general weakness Psych thought process normal and cooperative Appearance: appropriate Assessment & Plan Assessment/Plan (1) Intractable nausea and vomiting: (2) Pneumonia: PLAN: Plan #Intractable nausea and vomiting * resolving. Has not vomited since admissin. IV zofran and compazine prn * tolerating a diet * #Community acquired pneumonia * Was seen in the ED for chest discomfort and shortness of breath as well as cough on 04/14/2025. Chest x-ray then showed right lower lobe airspace disease concerning for pneumonitis versus pneumonia. * Was discharged and then on oral azithromycin. Now on IV antibiotics and to complete a 7-day course of antibiotics. #Chest pain * Patient complaining of retrosternal chest pain.It seems to be related to MSK pain from the coughing from pneumonia * she however tells me she had a history of a mild heart attack years ago * EKG showed no acute ST changes. * out of an abundance of precaution, will check troponin series. * #Seizure disorder: * there was concern for breakthrough seizure in the ED. on IV Keppra. Nausea has abated, so will resume PO keppra. #GERD: on PPI DVT prophylaxis: lovenox Code status: full code Charges/Coding Visit Charges Inpatient E&M: 83615 Subs Hosp L2 04/16/25 1332 <Electronically signed by Karla Elizondo MD> Karla Elizondo MD Cosigner Signature (if applicable): CC: ~ Signed [facility] Work Phone: 1(342) 472-336808-24-2025 Progress note [facility] Medical Records Department [address] [place] [address] Progress Note 04/16/25 1255 MR#: [id number] Acct: [id number] Name: ORTIZ MASON Rep #:[id number] : 1970 55 From: Karla Elizondo MD PCP: Dr. Amandeep Loredo, DO Status:AD M [facility] Location: [place] [address] Subjective Subjective Patient seen and examined. She was admitted with a complaint of incessant nauseaand vomiting. She was recently started on oral azithromycin on outpatient basis for pneumonia, and this was thought to be the possible cause of her symptoms. Objective Data Objective Data Vital Signs: Vital Signs Temp Pulse Resp BP Pulse Ox O2 Del Method O2 Flow Rate 98.0 F 62 18 132/84 H 94 Room Air 2 04/16/25 07:53 04/16/25 12:48 04/16/25 12:48 04/16/25 07:53 04/16/25 07:53 04/16/25 07:53 04/16/25 03:20 Oxygen Flow Rate (L/min) 2 Oxygen Delivery Method Room Air Weight: 180 lb 5.41 oz Body Mass Index (BMI) 26.6 Intake & Output: Intake and Output for Last 24 Hours 04/14/25 04/15/25 04/16/25 23:59 23:59 23:59 Intake Total 350 / 350 165 / 165 Balance 350 / 350 165 / 165 Lab / Micro Data 04/16/25 06:10 04/16/25 06:10 Labs: Laboratory Results - last 24 hr 04/15/25 17:33: WBC 7.2, RBC 4.90, Hgb 15.3 H, Hct 45.9, MCV 93.7, MCH 31.2, MCHC 33.3, RDW Std Deviation 43.8, RDW Coeff of Bere 12.7, Plt Count 327, MPV 9.6, Immature Gran % (Auto) 0.300, Neut % (Auto) 70.2 H, Lymph % (Auto) 21.7, Ciales % (Auto) 6.4, Eos % (Auto) 0.8, Baso % (Auto) 0.6, Absolute Neuts (auto) 5.0, Absolute Lymphs (auto) 1.56, Nucleated RBC % 0, Sodium 142, Potassium 3.5, Chloride 106, Carbon Dioxide 21.9, Anion Gap 14, BUN 6, Creatinine 0.55 L, EstimCreat Clear Calc 129.45, Est GFR (MDRD) Non-Af 108, BUN/Creatinine Ratio 11.4, Glucose 105 H, Calcium 9.4, Phosphorus 3.1, Magnesium 2.2 04/15/25 18:51: POC Glucose 103 04/16/25 06:10: WBC 6.3, RBC 4.84, Hgb 14.9, Hct 45.2, MCV 93.4, MCH 30.8, MCHC 33.0, RDW Std Deviation 43.3, RDW Coeff of Bere 12.7, Plt Count 315, MPV 9.6, Sodium 141, Potassium 3.8, Chloride 107, Carbon Dioxide 21.0, Anion Gap 12, BUN 8, Creatinine 0.58 L, Estim Creat Clear Calc 123.86, Est GFR (MDRD) Non-Af 106, BUN/Creatinine Ratio 14.7, Glucose 95, Calcium 9.1, Troponin T High Sens < 6 04/16/25 09:11: Troponin T Hi Sens 2 Hr < 6 04/16/25 11:10: Troponin T Hi Sens 4Hr < 6 Physical Exam Const alert, oriented x3 and no apparent distress HEENT normocephalic, head/scalp atraumatic, moist oral mucous membranes and oropharynxnormal Eyes EOMs intact bilaterally Neck no lymphadenopathy and supple Lymph Lymphatic: no lymphedema noted Resp Resp Narrative: mildly diminished breath sounds bibasally, no wheezes or crackles. On room air. Cardio regular rate, regular rhythm, S1 normal heart sound, S2 normal heart sound and no murmurs GI normal to inspection, nondistended, normoactive bowel sounds, soft to palpation,non-tender and non-distended Extremity normal capillary refill Neuro CN's II-XII intact bilaterally and no focal motor deficits Motor Exam: strength 5/5 throughout and general weakness Psych thought process normal and cooperative Appearance: appropriate Assessment & Plan Assessment/Plan (1) Intractable nausea and vomiting: (2) Pneumonia: PLAN: Plan #Intractable nausea and vomiting * resolving. Has not vomited since admissin. IV zofran and compazine prn * tolerating a diet * #Community acquired pneumonia * Was seen in the ED for chest discomfort and shortness of breath as well as cough on 04/14/2025. Chest x-ray then showed right lower lobe airspace disease concerning for pneumonitis versus pneumonia. * Was discharged and then on oral azithromycin. Now on IV antibiotics and to complete a 7-day course of antibiotics. #Chest pain * Patient complaining of retrosternal chest pain.It seems to be related to MSK pain from the coughing from pneumonia * she however tells me she had a history of a mild heart attack years ago * EKG showed no acute ST changes. * out of an abundance of precaution, will check troponin series. * #Seizure disorder: * there was concern for breakthrough seizure in the ED. on IV Keppra. Nausea has abated, so will resume PO keppra. #GERD: on PPI DVT prophylaxis: lovenox Code status: full code Charges/Coding Visit Charges Inpatient E&M: 60499 Subs Hosp L2 04/16/25 1332 Karla Elizondo MD Cosigner Signature (if applicable): CC: ~ Signed [facility]08-23-2025 Discharge summary Author Jordin Chisholm [facility] Note Date/Time April 15, 2025 7: 10pm [facility] Medical Records Department [address] [place] [address] Emergency Department Summary 04/15/25 MR#: [id number] Acct: [id number] Name: ORTIZ MASON Rep #:[id number] : 1970 55 From: Jordin Chisholm MD PCP: Dr. Amandeep Loredo, DO Status:AD M [facility] Location: [place] [address] HPI History of Present Illness Chief Complaint: Shortness of Breath Narrative Narrative: 55-year-old female presents with increasing dyspnea with recent diagnosis of pneumonia. She states that a few days prior to her being seen in the emergency department yesterday evening, she was having upper respiratory infection type symptoms such as fever and productive cough. She was seen in the emergency department yesterday evening and diagnosed with pneumonia. She was sent home onazithromycin. Since then, she states she developed diarrhea as well as nausea and vomiting. She has vomited at least 10 times without any hematemesis. She developed a loose stool as well. She states she is having increasing chest pressure which she was also having last night. She has a past medical history of seizure disorder and was unable to take her Keppra as she has been vomiting all day. She states she was not sent home with any albuterol. [facility] Medical History NSTEMI (non-ST elevated myocardial infarction) Cardiac arrest COVID-19 Brain aneurysm Chronic pain Rheumatoid arthritis Kidney stones Kidney disease GERD (gastroesophageal reflux disease) Former smoker Sleep apnea Asthma Migraines Seizures Home Medications ?Medication ?Instructions ?Recorded ?Last Taken ?Type iwusouiz-nmsj-gvqh 8 mg-folic 400 1 tab PO DAILY suppl ement 03/21/19 07/26/21 History mcg-K 50 mcg-lutein 300 mcg tablet levetiracetam 750 mg tablet 1,500 mg PO Q12H seizures 12/04/19 07/26/21 History fluticasone propionate 50 1 spray intranasal DAILY 09/15 Unknown History mcg/actuation nasal spray,suspension (Flonase Allergy Relief) cyclobenzaprine 10 mg tablet 10 mg PO TID PRN Muscle S pasm #20 05/11/24 Unknown Rx TABLETS oxycodone-acetaminophen 5 mg-325 1 tab PO Q6H PRN pain 5 days #20 08/07/24 Unknown Rx mg tablet (Percocet) tabs gabapentin 400 mg capsule 800 mg PO Q12H 09/04/24 Unkn own History levetiracetam 1,000 mg tablet 1,000 mg PO Q12H 5 Unknown History (Keppra) omeprazole 20 mg capsule,delayed 20 mg PO BID 09/04/24 Unknown History release tizanidine 2 mg capsule 2 mg PO TID PRN muscle spast icity 10/21/24 Unknown Rx #14 caps metaxalone 800 mg tablet 800 mg PO TID 7 days #21 tab s 03/14/25 Unknown Rx oxycodone-acetaminophen 5 mg-325 1 tab PO Q6H PRN pain 4 days #12 03/14/25 Unknown Rx mg tablet (Percocet) tabs azithromycin 250 mg tablet 250 mg PO DAILY #4 TABLETS 04/14/25 Unknown Rx oxycodone-acetaminophen 5 mg-325 1 tab PO Q4H PRN Pain 04/15/25 Unknown History mg tablet Allergy/AdvReac Type Severity Reaction Status Date / Time Penicillins Allergy Anaphylaxis Verified 04/15/25 16:21 propoxyphene napsylate (From Allergy Rash Verified 04/15/25 16:21 Darvocet-N 100) adhesive tape (plastic tape) AdvReac Other Verified 04/15/25 16:21 hydrocodone bitartrate (From AdvReac Itching Verified 04/15/25 16:21 Vicodin) Iodinated Contrast Media AdvReac Vomiting Verified 04/15/25 16:21 (contrast dye - iodinated) venom-honey bee (bee venom AdvReac Chest Verified 04/15/25 16:21 (honey bee)) tightness Surgical History History of kidney surgery History of hysterectomy Hx of neck surgery Previous back surgery History of appendectomy History of cholecystectomy Social History household members: none Smoking Status: Current every day smoker tobacco type: cigarettes substance use type: does not use ROS ROS ED ROS Narrative Review of systems positive for cough, productive, subjective fever. Positive nausea and vomiting as well as diarrhea today. At least 10 episodes of vomiting. No hematemesis. Positive chest pressure and dyspnea. Unable to takemedications orally. EXAM Physical Exam Narrative Exam Narrative: Afebrile. Vital signs noted. Nontoxic-appearing. Cardiovascular examination reveals a regular rate and rhythm. Positive rhonchi bilateral lung guerra, moving a good amount of air. Abdomen soft and nontender with positive bowel sounds. No guarding or rebound. Neurological examination nonfocal, nonlateralizing. Const Vital Signs: 04/15/25 16:19 04/15/25 16:47 04/15/25 16:47 Temperature 98.4 F Temperature Source Oral Pulse Rate 98 Respiratory Rate 20 H Respiratory Effort Normal Non-Labored Respiratory Depth Normal Respiratory Pattern Normal Blood Pressure 131/100 H Blood Pressure Mean 110 Pulse Ox 98 Oxygen Delivery Method Room Air Room Air Room Air 04/15/25 16:56 04/15/25 16:59 Temperature 98.8 F Temperature Source Oral Pulse Rate 89 100 Respiratory Rate 20 H 20 H Respiratory Effort Respiratory Depth Respiratory Pattern Tachypnea Blood Pressure 138/76 H Blood Pressure Mean 96 Pulse Ox 98 Oxygen Delivery Method Room Air MDM MDM MDM Narrative Medical decision making narrative: The differential diagnosis includes but not limited to worsening pneumonia versus ACS versus gastritis/gastroenteritis secondary to antibiotic use. I reviewed her prior workup and laboratory work. Her chest x-ray was concerning for pneumonitis. She did take Zithromax. She will be given a DuoNeb aerosolized treatment. I will obtain an EKG to look for ischemia but she had a negative troponin yesterday. I do not feel she needs repeat troponins. She will be loaded with her Keppra 1 g intravenously as in review of her medication list she takes Keppra I will 1000 mg twice a day. This is to prevent her from having a seizure. Review of her medication list shows anaphylaxis to penicillin. Hence for her community-acquired pneumonia she will be started on Levaquin intravenously. I will repeat her laboratory work in the form of CBC and BMP, but I do not feel that chest x-ray is indicated as she just had it lastnight. I reviewed her laboratory work and her white count has actually decreased to 7.2, hemoglobin slightly hemoconcentrated at 15.3 with hematocrit 45.9, plateletcount normal at 327, electrolyte panel grossly unremarkable except for creatinine low at 0.55, glucose 105 with normal anion gap of 14. Patient was administered Keppra intravenously as stated previously. I did change her antibiotic to Levaquin as stated as well. I discussed the patient with Dr. Gooden for observation on the medical surgical floor. Repeat examination didshow mild improvement with her nausea after ondansetron. Disposition is assigned observation in stable condition. History & Record Review Discussion w/independent historian: Patient and Family Additional record(s) reviewed:: Prior ED visit (Diagnosed with pneumonia, placedon Benitezthromax.) Lab Data Attestation: I reviewed the patient's lab results. Labs: Laboratory Results - last 24 hr 04/15/25 17:33 WBC 7.2 RBC 4.90 Hgb 15.3 H Hct 45.9 MCV 93.7 MCH 31.2 MCHC 33.3 RDW Std Deviation 43.8 RDW Coeff of Bere 12.7 Plt Count 327 MPV 9.6 Immature Gran % (Auto) 0.300 Neut % (Auto) 70.2 H Lymph % (Auto) 21.7 Ciales % (Auto) 6.4 Eos % (Auto) 0.8 Baso % (Auto) 0.6 Absolute Neuts (auto) 5.0 Absolute Lymphs (auto) 1.56 Nucleated RBC % 0 Sodium 142 Potassium 3.5 Chloride 106 Carbon Dioxide 21.9 Anion Gap 14 BUN 6 Creatinine 0.55 L Estim Creat Clear Calc 129.45 Est GFR (MDRD) Non-Af 108 BUN/Creatinine Ratio 11.4 Glucose 105 H Calcium 9.4 Management Discussion w/another healthcare provider: Hospitalist (Dr. Gooden) Discharge Plan Dx/Rx/DC Orders Clinical Impression: Intractable nausea and vomiting, Pneumonia, Seizure disorder Disposition Disposition: Acute Care Hospital [facility] What to do if you have Problems For any increased pain, shortness of breath, bleeding, nausea or vomiting, chestpain, or any unexpected problems, contact your Primary Care Provider. Call [facility] ([phone]) or report to the closest Emergency Room. Call 911 if necessary. 04/15/251836 <Electronically signed by Jordin Chisholm MD> Cosigner Signature (if applicable): CC: Dr. Amandeep Loredo DO ~ Signed ADDENDUM by Dr. Jordin Chisholm MD on 04/15/25 at 1843 EKG was obtained and interpreted by myself independently as normal sinus rhythm at 91 bpm without ectopy or acute ST changes. No STEMI. Hence, I do feel that her chest pressure and dyspnea is less likely ACS as there are no ischemic changes noted on EKG. Additionally I reviewed her troponin from yesterday and it was negative at less than 6 as well. Patient was administered Toradol for her back pain. Disposition remains assigned observation in stable condition. 04/15/251842<Electronically signed by Jordin Chisholm MD> Cosigner Signature (if applicable): cc: Dr. Amandeep Loredo, ~* Signed ADDENDUM by Dr. Jordin Chisholm MD on 04/15/25 at 190 While was performing a procedure and another patient room, it was reported that the patient either had a syncopal episode or seizure after ambulating to the bathroom. Upon repeat examination, she is awake, and states that she was unableto take her Keppra both last night and today secondary to vomiting. She had already been loaded with 1 g of Keppra. Other physician on duty had ordered Ativan 2 mg and seizure precautions as well as EKG. Second EKG interpreted by myself independently shows sinus tachycardia at [address] changes. No STEMI. Blood sugar was checked and is normal at 103. I informed Dr. Gooden about the events, and he will change the bed to PCU. Disposition remains assigned observation in stable condition. 04/15/251908<Electronically signed by Jordin Chisholm MD> Cosigner Signature (if applicable): cc: Dr. Amandeep Loredo DO ~* Signed [facility] Work Phone: 1(191) 725-659808-23-2025 History and physical note Author Hany Gooden [facility] Note Date/Time April 15, 2025 7: 10pm [facility] Medical Records Department [address] [place] [address] H&P Exam - Hospitalist 04/15/25 1835 MR#: [id number] Acct: [id number] Name: ORTIZ MASON Rep #:[id number] : 1970 55 From: Hany hood DO PCP: Dr. Amandeep Loredo, DO Status:AD M [facility] Location: [place] [id number]- [id number] HPI - General General Date of Admission: 04/15/25 Date of Service: 04/15/25 Chief Complaint: Intractable nausea and vomiting HPI Narrative ORTIZ MASON, is a 55 F who presented to [facility] ED on 04/15/2025 with intractable nausea and vomiting. Patient was seen in the ED yesterday for worsening shortness of breath, cough and pleuritic chest pain. She was diagnosed with pneumonia and sent home on p.o. azithromycin. This morning she developed diarrhea as well as nausea and vomiting. Noted she has vomited at least 10 times over the course of today. Has also had continued chest pain/discomfort, and she has been unable to take her p.o. medications so she came in for further evaluation. In the ED she was borderline tachycardic with heart rate in the 90s, was otherwise normotensive and stable on room air atrest. WBC count has improved from yesterday, and CBC and BMP are otherwise benign. Patient was given doses of IV Toradol and Zofran with only mild relief of symptoms. Was also given a breathing treatment. Given her intractable nausea and vomiting and inability to take p.o. medications, hospitalist was contacted for admission. I saw the patient at bedside in the ED. Patient was in mild to moderate distress due to ongoing chest and mid back discomfort. Has history of muscle spasms and notes that they have been more significant this afternoon. On my exam, she did have crackles noted in her upper airways bilaterally as well as wet cough noted. She was quite anxious appearing as well. Will give a dose of IV Norflex as well as a dose of IV Ativan, and will be admitted for further management. [facility]LY [facility], LATER [facility] Medical History NSTEMI (non-ST elevated myocardial infarction) Cardiac arrest COVID-19 Brain aneurysm Chronic pain Rheumatoid arthritis Kidney stones Kidney disease GERD (gastroesophageal reflux disease) Former smoker Sleep apnea Asthma Migraines Seizures Home Medications ?Medication ?Instructions ?Recorded ?Last Taken ?Type fmplqeak-[id number] 8 mg-folic 400 1 tab PO DAILY suppl ement 03/21/19 07/26/21 History mcg-K 50 mcg-lutein 300 mcg tablet levetiracetam 750 mg tablet 1,500 mg PO Q12H seizures 12/04/19 07/26/21 History fluticasone propionate 50 1 spray intranasal DAILY 09/15 Unknown History mcg/actuation nasal spray,suspension (Flonase Allergy Relief) cyclobenzaprine 10 mg tablet 10 mg PO TID PRN Muscle S pasm #20 05/11/24 Unknown Rx TABLETS oxycodone-acetaminophen 5 mg-325 1 tab PO Q6H PRN pain 5 days #20 08/07/24 Unknown Rx mg tablet (Percocet) tabs gabapentin 400 mg capsule 800 mg PO Q12H 09/04/24 Unkn own History levetiracetam 1,000 mg tablet 1,000 mg PO Q12H 5 Unknown History (Keppra) omeprazole 20 mg capsule,delayed 20 mg PO BID 09/04/24 Unknown History release tizanidine 2 mg capsule 2 mg PO TID PRN muscle spast icity 10/21/24 Unknown Rx #14 caps metaxalone 800 mg tablet 800 mg PO TID 7 days #21 tab s 03/14/25 Unknown Rx oxycodone-acetaminophen 5 mg-325 1 tab PO Q6H PRN pain 4 days #12 03/14/25 Unknown Rx mg tablet (Percocet) tabs azithromycin 250 mg tablet 250 mg PO DAILY #4 TABLETS 04/14/25 Unknown Rx oxycodone-acetaminophen 5 mg-325 1 tab PO Q4H PRN Pain 04/15/25 Unknown History mg tablet Allergy/AdvReac Type Severity Reaction Status Date / Time Penicillins Allergy Anaphylaxis Verified 04/15/25 16:21 propoxyphene napsylate (From Allergy Rash Verified 04/15/25 16:21 Darvocet-N 100) adhesive tape (plastic tape) AdvReac Other Verified 04/15/25 16:21 hydrocodone bitartrate (From AdvReac Itching Verified 04/15/25 16:21 Vicodin) Iodinated Contrast Media AdvReac Vomiting Verified 04/15/25 16:21 (contrast dye - iodinated) venom-honey bee (bee venom AdvReac Chest Verified 04/15/25 16:21 (honey bee)) tightness Surgical History History of kidney surgery History of hysterectomy Hx of neck surgery Previous back surgery History of appendectomy History of cholecystectomy Social History household members: none Smoking Status: Current every day smoker tobacco type: cigarettes substance use type: does not use ROS Constitutional Constitutional: Reports fatigue; Denies chills, fever(s) or weakness Cardiovascular Cardiovascular: Reports chest pain; Denies dyspnea on exertion, edema or lightheadedness Respiratory/Chest Respiratory/Chest: Reports cough and productive cough; Denies shortness of breath at rest or wheezing Gastrointestinal Gastrointestinal: Reports nausea and vomiting; Denies abdominal pain Musculoskeletal Musculoskeletal: Reports back pain; Denies arthralgias or myalgias Neurologic Neurologic: Denies dizziness, focal weakness, headache(s), numbness or tingling Vital Signs Vital Signs Vital Signs: 04/15/25 16:19 04/15/25 16:47 04/15/25 16:47 Temperature 98.4 F Temperature Source Oral Pulse Rate 98 Respiratory Rate 20 H Respiratory Effort Normal Non-Labored Respiratory Depth Normal Respiratory Pattern Normal Blood Pressure 131/100 H Blood Pressure Mean 110 Pulse Ox 98 Oxygen Delivery Method Room Air Room Air Room Air 04/15/25 16:56 04/15/25 16:59 Temperature 98.8 F Temperature Source Oral Pulse Rate 89 100 Respiratory Rate 20 H 20 H Respiratory Effort Respiratory Depth Respiratory Pattern Tachypnea Blood Pressure 138/76 H Blood Pressure Mean 96 Pulse Ox 98 Oxygen Delivery Method Room Air Weight Weight: 80.195 kg Body Mass Index (BMI) 26.1 Physical Exam Const alert, oriented x3 and average body habitus Constitutional Narrative: Middle-age female, anxious appearing, mild to moderate acute distress due to ongoing chest and back discomfort with muscle spasms, otherwise laying back in bed, answering questions with short appropriate responses. General Appearance: cooperative HEENT normocephalic, head/scalp atraumatic, hearing grossly normal bilaterally, nasal mucous membranes and turbinates normal and moist oral mucous membranes Eyes PERRL, EOMs intact bilaterally and conjunctivae normal Neck full ROM Chest inspection of chest normal Resp normal respiratory effort and no use of accessory muscles Resp Narrative: Breathing comfortably on room air at rest. Mild crackles noted in upper airwaysbilaterally, no wheezing noted. Cardio regular rate, regular rhythm, no murmurs and peripheral pulses 2+ throughout GI normal to inspection, nondistended, normoactive bowel sounds, soft to palpation,non-tender and non-distended Back/Spine normal ROM Extremity normal to inspection and no pedal edema Skin no rashes or lesions noted Psych mental status grossly normal Mood & Affect: anxious Results Lab / Micro Data 04/15/25 17:33 04/15/25 17:33 Labs: Laboratory Results - last 24 hr 04/15/25 17:33: WBC 7.2, RBC 4.90, Hgb 15.3 H, Hct 45.9, MCV 93.7, MCH 31.2, MCHC 33.3, RDW Std Deviation 43.8, RDW Coeff of Bere 12.7, Plt Count 327, MPV 9.6, Immature Gran % (Auto) 0.300, Neut % (Auto) 70.2 H, Lymph % (Auto) 21.7, Ciales % (Auto) 6.4, Eos % (Auto) 0.8, Baso % (Auto) 0.6, Absolute Neuts (auto) 5.0, Absolute Lymphs (auto) 1.56, Nucleated RBC % 0, Sodium 142, Potassium 3.5, Chloride 106, Carbon Dioxide 21.9, Anion Gap 14, BUN 6, Creatinine 0.55 L, EstimCreat Clear Calc 129.45, Est GFR (MDRD) Non-Af 108, BUN/Creatinine Ratio 11.4, Glucose 105 H, Calcium 9.4 Assessment & Plan Assessment/Plan (1) Intractable nausea and vomiting: (2) Pneumonia: PLAN: Plan Patient is a 55-year-old female who presented to [facility] ED on 04/15/2025 with intractable nausea and vomiting. 1. Intractable nausea and vomiting ? Admit under observation status to PCU. Patient with acute onset nausea with vomiting on day of admission. Suspect p.o. azithromycin started for pneumonia is a contributing factor. Will treat symptomatically with IV Zofran as needed and IV Compazine as needed. Okay for regular diet as tolerated. 2. Concern for community-acquired pneumonia ? Presented to ED on 04/14 for chest discomfort, shortness of breath and cough. Chest x-ray with right lower lobe airspace disease noted concerning for pneumonitis versus pneumonia. Treated with p.o. azithromycin and discharged home. Given nausea/vomiting as above, will switch from azithromycin to IV Levaquin at this time and plan for 7-day course of antibiotics total. 3. Chest and back discomfort with muscle spasms ? Patient with history of muscle spasms and given frequent coughing episodes andsuspected pneumonia, has had worsened chest and back discomfort with ongoing muscle spasms. Given dose of IV Toradol in the ED without much improvement. Will give a dose of IV Norflex now and see how patient does with this. If this helps, can give this twice daily scheduled until patient is able to resume p.o. intake; can then switch back to home p.o. muscle relaxers. 4. Seizure disorder with concern for breakthrough seizure ? Patient had episode in the ED concerning for breakthrough seizure. Given 2 mgof IV Ativan at that time. Per ED staff, returned to baseline mental status fairly quickly so unclear if consistent with true seizure. Was given Keppra load in the ED and will continue IV Keppra 1500 mg twice daily until patient cantolerate p.o. intake. 5. GERD ? Treat with IV PPI twice daily for now. DVT prophylaxis: Lovenox CODE STATUS: Full code, verified Expected disposition: Home, TBD Total clinical time spent by myself addressing the patient's medical issues, reviewing all the data, and collaborating with patient's care team: 75 minutes. Charges/Coding Visit Charges Inpatient E&M: 74107 Init Hosp L3 04/15/251909 <Electronically signed by Hany Gooden DO> Cosigner Signature (if applicable): CC: Dr. Hany Gooden DO; Dr. Amandeep Loredo DO~ Signed [facility] Work Phone: 1(404) 282-741908-23-2025 Evaluation note* Diagnosis Onset Date Resolution Status Admit Date Intractable nausea and vomiting acute April 15 6:33pm Pneumonia acute April 15 025 6:33pm Seizure disorder chronic March 252024 6:33pm [facility] Work Phone: [phone]) 137-525408-23-2025 Discharge summary [facility] Medical Records Department [address] [place] [address] Emergency Department Summary 04/15/25 MR#: [id number] Acct: [id number] Name: ORTIZ MASON Rep #:[id number] : 1970 55 From: Jordin Chisholm MD PCP: Dr. Amandeep Loredo, DO Status:AD M MARTINA Location: [place] [address] HPI History of Present Illness Chief Complaint: Shortness of Breath Narrative Narrative: 55-year-old female presents with increasing dyspnea with recent diagnosis of pneumonia. She states that a few days prior to her being seen in the emergency department yesterday evening, she was having upper respiratory infection type symptoms such as fever and productive cough. She was seen in the emergency department yesterday evening and diagnosed with pneumonia. She was sent home onazithromycin. Since then, she states she developed diarrhea as well as nausea and vomiting. She has vomited at least 10 times without any hematemesis. She developed a loose stool as well. She states she is having increasing chest pressure which she was also having last night. She has a past medical history of seizure disorder and was unable to take her Keppra as she has been vomiting all day. She states she was not sent home with any albuterol. [facility] Medical History NSTEMI (non-ST elevated myocardial infarction) Cardiac arrest COVID-19 Brain aneurysm Chronic pain Rheumatoid arthritis Kidney stones Kidney disease GERD (gastroesophageal reflux disease) Former smoker Sleep apnea Asthma Migraines Seizures Home Medications ?Medication ?Instructions ?Recorded ?Last Taken ?Type esbitbbg-lbkr-grpu 8 mg-folic 400 1 tab PO DAILY suppl ement 03/21/19 07/26/21 History mcg-K 50 mcg-lutein 300 mcg tablet levetiracetam 750 mg tablet 1,500 mg PO Q12H seizures 12/04/19 07/26/21 History fluticasone propionate 50 1 spray intranasal DAILY 09/15 Unknown History mcg/actuation nasal spray,suspension (Flonase Allergy Relief) cyclobenzaprine 10 mg tablet 10 mg PO TID PRN Muscle S pasm #20 05/11/24 Unknown Rx TABLETS oxycodone-acetaminophen 5 mg-325 1 tab PO Q6H PRN pain 5 days #20 08/07/24 Unknown Rx mg tablet (Percocet) tabs gabapentin 400 mg capsule 800 mg PO Q12H 09/04/24 Unkn own History levetiracetam 1,000 mg tablet 1,000 mg PO Q12H 5 Unknown History (Keppra) omeprazole 20 mg capsule,delayed 20 mg PO BID 09/04/24 Unknown History release tizanidine 2 mg capsule 2 mg PO TID PRN muscle spast icity 10/21/24 Unknown Rx #14 caps metaxalone 800 mg tablet 800 mg PO TID 7 days #21 tab s 03/14/25 Unknown Rx oxycodone-acetaminophen 5 mg-325 1 tab PO Q6H PRN pain 4 days #12 03/14/25 Unknown Rx mg tablet (Percocet) tabs azithromycin 250 mg tablet 250 mg PO DAILY #4 TABLETS 04/14/25 Unknown Rx oxycodone-acetaminophen 5 mg-325 1 tab PO Q4H PRN Pain 04/15/25 Unknown History mg tablet Allergy/AdvReac Type Severity Reaction Status Date / Time Penicillins Allergy Anaphylaxis Verified 04/15/25 16:21 propoxyphene napsylate (From Allergy Rash Verified 04/15/25 16:21 Darvocet-N 100) adhesive tape (plastic tape) AdvReac Other Verified 04/15/25 16:21 hydrocodone bitartrate (From AdvReac Itching Verified 04/15/25 16:21 Vicodin) Iodinated Contrast Media AdvReac Vomiting Verified 04/15/25 16:21 (contrast dye - iodinated) venom-honey bee (bee venom AdvReac Chest Verified 04/15/25 16:21 (honey bee)) tightness Surgical History History of kidney surgery History of hysterectomy Hx of neck surgery Previous back surgery History of appendectomy History of cholecystectomy Social History household members: none Smoking Status: Current every day smoker tobacco type: cigarettes substance use type: does not use ROS ROS ED ROS Narrative Review of systems positive for cough, productive, subjective fever. Positive nausea and vomiting aswell as diarrhea today. At least 10 episodes of vomiting. No hematemesis. Positive chest pressure and dyspnea. Unable to takemedications orally. EXAM Physical Exam Narrative Exam Narrative: Afebrile. Vital signs noted. Nontoxic-appearing. Cardiovascular examination reveals a regular rate and rhythm. Positive rhonchi bilateral lung guerra, moving a good amount of air. Abdomen soft and nontender with positive bowel sounds. No guarding or rebound. Neurological examination nonfocal, nonlat eralizing. Const Vital Signs: 04/15/25 16:19 04/15/25 16:47 04/15/25 16:47 Temperature 98.4 F Temperature Source Oral Pulse Rate 98 Respiratory Rate 20 H Respiratory Effort Normal Non-Labored Respiratory Depth Normal Respiratory Pattern Normal Blood Pressure 131/100 H Blood Pressure Mean 110 Pulse Ox 98 Oxygen Delivery Method Room Air Room Air Room Air 04/15/25 16:56 04/15/25 16:59 Temperature 98.8 F Temperature Source Oral Pulse Rate 89 100 Respiratory Rate 20 H 20 H Respiratory Effort Respiratory Depth Respiratory Pattern Tachypnea Blood Pressure 138/76 H Blood Pressure Mean 96 Pulse Ox 98 Oxygen Delivery Method Room Air MDM MDM MDM Narrative Medical decision making narrative: The differential diagnosis includes but not limited to worsening pneumonia versus ACS versus gastritis/gastroenteritis secondary to antibiotic use. I reviewed her prior workup and laboratory work. Her chest x-ray was concerning for pneumonitis. She did take Zithromax. She will be given a DuoNeb aerosolized treatment. I will obtain an EKG to look for ischemia but she had a negative troponin yesterday. I do not feel she needs repeat troponins. She will be loaded with her Keppra 1 g intravenously as in review of her medication list she takes Keppra I will 1000 mg twice a day. This is to prevent her from having a seizure. Review of her medication list shows anaphylaxis to penicillin. Hence for her community-acquired pneumonia she will be started on Levaquin intravenously. I will repeat her laboratory work in the form of CBC and BMP, but I do not feel that chest x-ray is indicated as she just had it lastnight. I reviewed her laboratory work and her white count has actually decreased to 7.2, hemoglobin slightly hemoconcentrated at 15.3 with hematocrit 45.9, plateletcount normal at 327, electrolyte panel grossly unremarkable except for creatinine low at 0.55, glucose 105 with normal anion gap of 14. Patient was administered Keppra intravenously as stated previously. I did change her antibiotic to Levaquin as stated as well. I discussed the patient with Dr. Gooden for observation on the medical surgical floor. Repeat examination didshow mild improvement with her nausea after ondansetron. Disposition is assigned observation in stable condition. History & Record Review Discussion w/independent historian: Patient and Family Additional record(s) reviewed:: Prior ED visit (Diagnosed with pneumonia, placedon Zithromax.) Lab Data Attestation: I reviewed the patient's lab results. Labs: Laboratory Results - last 24 hr 04/15/25 17:33 WBC 7.2 RBC 4.90 Hgb 15.3 H Hct 45.9 MCV 93.7 MCH 31.2 MCHC 33.3 RDW Std Deviation 43.8 RDW Coeff of Bere 12.7 Plt Count 327 MPV 9.6 Immature Gran % (Auto) 0.300 Neut % (Auto) 70.2 H Lymph % (Auto) 21.7 Ciales % (Auto) 6.4 Eos % (Auto) 0.8 Baso % (Auto) 0.6 Absolute Neuts (auto) 5.0 Absolute Lymphs (auto) 1.56 Nucleated RBC % 0 Sodium 142 Potassium 3.5 Chloride 106 Carbon Dioxide 21.9 Anion Gap 14 BUN 6 Creatinine 0.55 L Estim Creat Clear Calc 129.45 Est GFR (MDRD) Non-Af 108 BUN/Creatinine Ratio 11.4 Glucose 105 H Calcium 9.4 Management Discussion w/another healthcare provider: Hospitalist (Dr. Gooden) Discharge Plan Dx/Rx/DC Orders Clinical Impression: Intractable nausea and vomiting, Pneumonia, Seizure disorder Disposition Disposition: Acute Care Hospital [facility] What to do if you have Problems For any increased pain, shortness of breath, bleeding, nausea or vomiting, chestpain, or any unexpected problems, contact your Primary Care Provider. Call [facility] ([phone]) or report tothe closest Emergency Room. Call 911 if necessary. 04/15/25 1683 Cosigner Signature (if applicable): CC: Dr. Amandeep Loredo, DO ~ Signed ADDENDUM by Dr. Jordin Chisholm MD on 04/15/25 at 1843 EKG was obtained and interpreted by myself independently as normal sinus rhythm at 91 bpm without ectopy or acute ST changes. No STEMI. Hence, I do feel that her chest pressure and dyspnea is less likely ACS as there are no ischemic changes noted on EKG. Additionally I reviewed her troponin from yesterday and it was negative at less than 6 as well. Patient was administered Toradol for her back pain. Disposition remains assigned observation in stable condition. 04/15/251842 Cosigner Signature (if applicable): cc: Dr. Amandeep Loredo DO ~* Signed ADDENDUM by Dr. Jordin Chisholm MD on 04/15/25 at 1909 While was performing a procedure and another patient room, it was reported that the patient either had a syncopal episode or seizure after ambulating to the bathroom. Upon repeat examination, she is awake, and states that she was unableto take her Keppra both last night and today secondary to vomiting. She had already been loaded with 1 g of Keppra. Other physician on duty had ordered Ativan 2 mgand seizure precautions as well as EKG. Second EKG interpreted by myself independently shows sinus tachycardia at [address] changes. No STEMI. Blood sugar was checked and is normal at 103. I informed Dr. Gooden about the events, and he will change the bed to U. Disposition remains assigned observation in stable condition. 04/15/251908 Cosigner Signature (if applicable): cc: Dr. Amandeep Loredo DO ~* Signed [facility]08-23-2025 History and physical note [facility] Medical Records Department [address] [place] [address] H&P Exam - Hospitalist 04/15/25 1833 MR#: [id number] Acct: [id number] Name: ORTIZ MASON Rep #:[id number] : 1970 55 From: Hany hood DO PCP: Dr. Amandeep Loredo DO Status:AD M MARTINA Location: [place] [address] HPI - General General Date of Admission: 04/15/25 Date of Service: 04/15/25 Chief Complaint: Intractable nausea and vomiting HPI Narrative LUGENA MASON, is a 55 F who presented to [facility] ED on 04/15/2025 with intractable nausea and vomiting. Patient was seen in the ED yesterday for worsening shortness of breath, cough and pleuritic chest pain. She was diagnosed with pneumonia and sent home on p.o. azithromycin. This morning she developed diarrhea as well as nausea and vomiting. Noted she has vomited at least 10 times over the course of today. Has also had continued chest pain/discomfort, and she has been unable to take her p.o. medications so she came in for further evaluation. In the ED she was borderlinetachycardic with heart rate in the 90s, was otherwise normotensive and stable on room air atrest. WBC count has improved from yesterday, and CBC and BMP are otherwise benign. Patient was given doses of IV Toradol and Zofran with only mild relief of symptoms. Was also given a breathing treatment. Given her intractable nausea and vomiting and inability to take p.o. medications, hospitalist was contacted for admission. I saw the patient at bedside in the ED. Patient was in mild to moderate distress due to ongoing chest and mid back discomfort. Has history of muscle spasms and notes that they have been more significant this afternoon. On my exam, she did have crackles noted in her upper airwaysbilaterally as well as wet cough noted. She was quite anxious appearing as well. Will give a dose of IV Norflex as well as a dose of IV Ativan, and will be admitted for further management. [facility] LAT[facility] Medical History NSTEMI (non-ST elevated myocardial infarction) Cardiac arrest COVID-19 Brain aneurysm Chronic pain Rheumatoid arthritis Kidney stones Kidney disease GERD (gastroesophageal reflux disease) Former smoker Sleep apnea Asthma Migraines Seizures Home Medications ?Medication ?Instructions ?Recorded ?Last Taken ?Type kodohkxf-jrre-pcet 8 mg-folic 400 1 tab PO DAILY suppl ement 03/21/19 07/26/21 History mcg-K 50 mcg-lutein 300 mcg tablet levetiracetam 750 mg tablet 1,500 mg PO Q12H seizures 12/04/19 07/26/21 History fluticasone propionate 50 1 spray intranasal DAILY 09/15 Unknown History mcg/actuation nasal spray,suspension (Flonase Allergy Relief) cyclobenzaprine 10 mg tablet 10 mg PO TID PRN Muscle S pasm #20 05/11/24 Unknown Rx TABLETS oxycodone-acetaminophen 5 mg-325 1 tab PO Q6H PRN pain 5 days #20 08/07/24 Unknown Rx mg tablet (Percocet) tabs gabapentin 400 mg capsule 800 mg PO Q12H 09/04/24 Unkn own History levetiracetam 1,000 mg tablet 1,000 mg PO Q12H 5 Unknown History (Keppra) omeprazole 20 mg capsule,delayed 20 mg PO BID 09/04/24 Unknown History release tizanidine 2 mg capsule 2 mg PO TID PRN muscle spast icity 10/21/24 Unknown Rx #14 caps metaxalone 800 mg tablet 800 mg PO TID 7 days #21 tab s 03/14/25 Unknown Rx oxycodone-acetaminophen 5 mg-325 1 tab PO Q6H PRN pain 4 days #12 03/14/25 Unknown Rx mg tablet (Percocet) tabs azithromycin 250 mg tablet 250 mg PO DAILY #4 TABLETS 04/14/25 Unknown Rx oxycodone-acetaminophen 5 mg-325 1 tab PO Q4H PRN Pain 04/15/25 Unknown History mg tablet Allergy/AdvReac Type Severity Reaction Status Date / Time Penicillins Allergy Anaphylaxis Verified 04/15/25 16:21 propoxyphene napsylate (From Allergy Rash Verified 04/15/25 16:21 Darvocet-N 100) adhesive tape (plastic tape) AdvReac Other Verified 04/15/25 16:21 hydrocodone bitartrate (From AdvReac Itching Verified 04/15/25 16:21 Vicodin) Iodinated Contrast Media AdvReac Vomiting Verified 04/15/25 16:21 (contrast dye - iodinated) venom-honey bee (bee venom AdvReac Chest Verified 04/15/25 16:21 (honey bee)) tightness Surgical History History of kidney surgery History of hysterectomy Hx of neck surgery Previous back surgery History of appendectomy History of cholecystectomy Social History household members: none Smoking Status: Current every day smoker tobacco type: cigarettes substance use type: does not use ROS Constitutional Constitutional: Reports fatigue; Denies chills, fever(s) or weakness Cardiovascular Cardiovascular: Reports chest pain; Denies dyspnea on exertion, edema or lightheadedness Respiratory/Chest Respiratory/Chest: Reports cough and productive cough; Denies shortness of breath at rest or wheezing Gastrointestinal Gastrointestinal: Reports nausea and vomiting; Denies abdominal pain Musculoskeletal Musculoskeletal: Reports back pain; Denies arthralgias or myalgias Neurologic Neurologic: Denies dizziness, focal weakness, headache(s), numbness or tingling Vital Signs Vital Signs Vital Signs: 04/15/25 16:19 04/15/25 16:47 04/15/25 16:47 Temperature 98.4 F Temperature Source Oral Pulse Rate 98 Respiratory Rate 20 H Respiratory Effort Normal Non-Labored Respiratory Depth Normal Respiratory Pattern Normal Blood Pressure 131/100 H Blood Pressure Mean 110 Pulse Ox 98 Oxygen Delivery Method Room Air Room Air Room Air 04/15/25 16:56 04/15/25 16:59 Temperature 98.8 F Temperature Source Oral Pulse Rate 89 100 Respiratory Rate 20 H 20 H Respiratory Effort Respiratory Depth Respiratory Pattern Tachypnea Blood Pressure 138/76 H Blood Pressure Mean 96 Pulse Ox 98 Oxygen Delivery Method Room Air Weight Weight: 80.195 kg Body Mass Index (BMI) 26.1 Physical Exam Const alert, oriented x3 and average body habitus Constitutional Narrative: Middle-age female, anxious appearing, mild to moderate acute distress due to ongoing chest and backdiscomfort with muscle spasms, otherwise laying back in bed, answering questions with short appropriate responses. General Appearance: cooperative HEENT normocephalic, head/scalp atraumatic, hearing grossly normal bilaterally, nasal mucous membranes and turbinates normal and moist oral mucous membranes Eyes PERRL, EOMs intact bilaterally and conjunctivae normal Neck full ROM Chest inspection of chest normal Resp normal respiratory effort and no use of accessory muscles Resp Narrative: Breathing comfortably on room air at rest. Mild crackles noted in upper airwaysbilaterally, no wheezing noted. Cardio regular rate, regular rhythm, no murmurs and peripheral pulses 2+ throughout GI normal to inspection, nondistended, normoactive bowel sounds, soft to palpation,non-tender and non-distended Back/Spine normal ROM Extremity normal to inspection and no pedal edema Skin no rashes or lesions noted Psych mental status grossly normal Mood & Affect: anxious Results Lab / Micro Data 04/15/25 17:33 04/15/25 17:33 Labs: Laboratory Results - last 24 hr 04/15/25 17:33: WBC 7.2, RBC 4.90, Hgb 15.3 H, Hct 45.9, MCV 93.7, MCH 31.2, MCHC 33.3, RDW Std Deviation 43.8, RDW Coeff of Bere 12.7, Plt Count 327, MPV 9.6, Immature Gran % (Auto) 0.300, Neut % (Auto) 70.2 H, Lymph % (Auto) 21.7, Ciales % (Auto) 6.4, Eos % (Auto) 0.8, Baso % (Auto) 0.6, Absolute Neuts (auto) 5.0, Absolute Lymphs (auto) 1.56, Nucleated RBC % 0, Sodium 142, Potassium 3.5, Chloride 106, Carbon Dioxide 21.9, Anion Gap 14, BUN 6, Creatinine 0.55 L, EstimCreat Clear Calc 129.45, Est GFR (MDRD) Non-Af 108, BUN/Creatinine Ratio 11.4, Glucose 105 H, Calcium 9.4 Assessment & Plan Assessment/Plan (1) Intractable nausea and vomiting: (2) Pneumonia: PLAN: Plan Patient is a 55-year-old female who presented to [facility] ED on 04/15/2025 with intractable nausea and vomiting. 1. Intractable nausea and vomiting ? Admit under observation status to PCU. Patient with acute onset nausea with vomiting on day of admission. Suspect p.o. azithromycin started for pneumonia is a contributing factor. Will treat symptomatically with IV Zofran as needed and IV Compazine as needed. Okay for regular diet as tolerated. 2. Concern for community-acquired pneumonia ? Presented to ED on 04/14 for chest discomfort, shortness of breath and cough. Chest x-ray with right lower lobe airspace disease noted concerning for pneumonitis versus pneumonia. Treated with p.o. azithromycin and discharged home. Given nausea/vomiting as above, will switch from azithromycin to IV Levaquin at this time and plan for 7-day course of antibiotics total. 3. Chest and back discomfort with muscle spasms ? Patient with history of muscle spasms and given frequent coughing episodes andsuspected pneumonia, has had worsened chest and back discomfort with ongoing muscle spasms. Given dose of IV Toradol inthe ED without much improvement. Will give a dose of IV Norflex now and see how patient does with this. If this helps, can give this twice daily scheduled until patient is able to resume p.o. intake; can then switch back to home p.o. muscle relaxers. 4. Seizure disorder with concern for breakthrough seizure ? Patient had episode in the ED concerning for breakthrough seizure. Given 2 mgof IV Ativan at thattime. Per ED staff, returned to baseline mental status fairly quickly so unclear if consistent withtrue seizure. Was given Keppra load in the ED and will continue IV Keppra 1500 mg twice daily untilpatient cantolerate p.o. intake. 5. GERD ? Treat with IV PPI twice daily for now. DVT prophylaxis: Lovenox CODE STATUS: Full code, verified Expected disposition: Home, TBD Total clinical time spent by myself addressing the patient's medical issues, reviewing all the data, and collaborating with patient's care team: 75 minutes. Charges/Coding Visit Charges Inpatient E&M: 73435 Init Hosp L3 04/15/25 191 Cosigner Signature (if applicable): CC: Dr. Hany Gooden, DO; Dr. Amandeep Loredo, DO~ Signed [facility]08-22-2025 Telephone encounter Note* Telephone Encounter - Melisa Valero RN - 04/14/2025 2:31 PM EDT S: Patient spoke with [facility] nurse regarding B: Onset of symptoms/concern ED 04/14/25 A: Sharp pain in center of back with cough. Seen [place] ED today. Reports EKG and Xray performed and diagnosed with pneumonia. Was given antibiotic at ED and RX for home antibiotic. Reports she is having sharp pain after the morphine given in ED wore off. The pain is worsening since prior to ED visit and states she is unable to lye flat which is a new symptom. She is tearful. She states she is having hard time getting enough air to form sentences and experiencing tingling around her mouth. She is home with her spouse R: Advised to report to ED KADE Advised to have another adult drive, take medication list, ID and insurance card. Encouraged as symptoms worsened to call 911 due to difficultly breathing and tinglingaround mouth. Will report to [facility]. TE to PCP for notification. Reason for Disposition Sounds like a life-threatening emergency to the triager Protocols used: Recent Medical Visit for Illness Follow-up Gxna-PRKDX-PL [id number] Radiology Diagnostic study note [facility] Imaging Services [address] [place] [address] Chest PA and Lateral MR#: [id number] Acct: [id number] Name: ORTIZ MASON Rep #: [id number] : 1970 F 55 From: David Leonardo MD PCP: Dr. Amandeep Loredo DO Status: RE G ER Study:Chest PA and Lateral Date of Exam: 04/14/25 Exam# [id number] Ordering Dr: Alfred Parkinson DO PROCEDURE: CHEST [...] acute osseous change is seen. Reading Location: [place] [address] CC: Dr. Alfred Parkinson DO; Dr. Amandeep Loredo DO ~ [place] Leadperson: Signed [facility]07-22-2025 Discharge summary [facility] Medical Records Department [address] [place] [address] Emergency Department Summary 03/14/25 MR#: [id number] Acct: [id number] Name: ORTIZ MASON Rep #:[id number] : 1970 55 From: Zain Carvajal MD PCP: Dr. Amandeep Loredo, DO Status:RE G ER Location: ED HPI History of Present Illness Chief Complaint: Back Informant: patient Onset/Context/Timing Onset: Today and Hours Context: Sudden Onset Injury: - (Catching her 4-year-old grandson as he was falling off a slide. Sudden onset of thoracicback pain) Timing: Continuous Quality: Sharp Location: Thoracic Current Severity: 7/10 Maximum Severity: 7/10 Worsened by: improves with Movement Relieved by: Nothing Associated Symptoms Associated Symptoms: Negative for Numbness, Tingling, Radiation to Right Leg, Radiation to Left Leg, Fever, Abdominal Pain, Dysuria, Unable to Ambulate, Unable to Transfer, Urinary Retention, UrinaryIncontinence, Constipation or Fecal Incontinence Narrative Narrative: 55-year-old female history of prior FL, brain aneurysm, and A-fib not on blood thinners. Has had both a prior cervical fusion and lumbar fusion. 91. Her grandson was playing on a slide. He started tofall off a slide and she caught him as she was catching him she felt a pop and immediate pain in her thoracic spine. She did not fall. She denies any numbness or weakness to her upper or lower extremities. She states it is a burning pain going down her spine. She denies any radiation into her legs.No incontinence. Prior similar symptoms: No Recent Illness/Hospitalization: No [facility] Medical History NSTEMI (non-ST elevated myocardial infarction) Cardiac arrest COVID-19 Brain aneurysm Chronic pain Rheumatoid arthritis Kidney stones Kidney disease GERD (gastroesophageal reflux disease) Former smoker Sleep apnea Asthma Migraines Seizures Home Medications ?Medication ?Instructions ?Recorded ?Last Taken ?Type luycekrb-hmnw-ckwx 8 mg-folic 400 1 tab PO DAILY suppl ement 03/21/19 07/26/21 History mcg-K 50 mcg-lutein 300 mcg tablet levetiracetam 750 mg tablet 1,500 mg PO TID seizures 0 12/04/19 07/26/21 History fluticasone propionate 50 1 spray intranasal DAILY 09/15 Unknown History mcg/actuation nasal spray,suspension (Flonase Allergy Relief) lidocaine 5 % topical ointment 1 applic topical TID [place] N skin 11/17/22 Unknown Rx irritation #50 [...] soft nontender. Moving all 4 extremities. Normal floor scrubber strength.Normal dorsi plantarflexion. Normal sensation. Normal range of [...] to parathoracic muscle strain and spasm. Her x- ray was unremarkable of thoracic spine. She was [...] shows no acute abnormality. No fracture. No compressionfracture. I went over the x-ray with the [...] 7 Days Qty: 21 0RF No Action verdjutt-fzc-gtrx-FA-vit K-lut 1 EACH tablet 1 tab PO DAILY levetiracetam 750 MG tablet 1,500 mg PO TID fluticasone propionate [Flonase Allergy Relief] 50 mcg/actuation [place],Suspension 1 spray INTRANASAL DAILY Rx Instructions: administer [...] Primary Care Provider: Amandeep Loredo Referrals: Amandeep Loredo, [Primary Care Provider] - 1 Week if not improving Activity Restrictions/Additional Instructions: Motrin for pain and inflammation. Percocet for severe pain. Skelaxin is a muscle relaxant 1 pill 3 times a day till gone. Hot shower, warm bath, hot tub, massage for the muscle spasm. Follow-up with your doctor if not improving for further evaluation. Print Language: Telugu Disposition Disposition: Home, Self Care What to do if you have Problems For any increased pain, shortness of breath, bleeding, nausea or vomiting, chestpain, or any unexpected problems, contact your Primary Care Provider. Call [facility] ([phone]) or report tothe closest Emergency Room. Call 911 if necessary. 03/14/25 9509 Cosigner Signature (if applicable): CC: Dr. Amandeep Loredo, DO ~ Signed [facility]07-22-2025 Discharge summary Author Zain Carvajal [facility] Note Date/Time March 14, 2025 3:44 pm [facility] Medical Records Department [address] [place] [address] Emergency Department Summary 03/14/25 MR#: [id number] Acct: [id number] Name: ORTIZ MASON Rep #:[id number] : 1970 55 From: Zain Carvajal MD PCP: Dr. Amandeep Loredo, Status:RE G ER Location: ED HPI History [...] Narrative Narrative: 55-year-old female history of prior FL, brain aneurysm, and A-fib not on blood [...] similar symptoms: No Recent Illness/Hospitalization: No [facility] Medical History NSTEMI (non-ST elevated myocardial infarction) Cardiac arrest COVID-19 Brain aneurysm Chronic pain Rheumatoid arthritis Kidney stones Kidney disease GERD (gastroesophageal reflux disease) Former smoker Sleep apnea Asthma Migraines Seizures Home Medications ?Medication ?Instructions ?Recorded ?Last Taken ?Type vtapjsxx-bxqi-sjnw 8 mg-folic 400 1 tab PO DAILY suppl ement 03/21/19 07/26/21 History mcg-K 50 mcg-lutein 300 mcg tablet levetiracetam 750 mg tablet 1,500 mg PO TID seizures 0 12/04/19 07/26/21 History fluticasone propionate 50 1 spray intranasal DAILY 09/15 Unknown History mcg/actuation nasal spray,suspension (Flonase Allergy Relief) lidocaine 5 % topical ointment 1 applic topical TID WY N skin 11/17/22 Unknown Rx irritation #50 [...] soft nontender. Moving all 4 extremities. Normal floor scrubber strength. Normal dorsi plantarflexion. Normal sensation. Normal [...] 7 Days Qty: 21 0RF No Action xavpafpa-njg-ocjx-FA-vit K-lut 1 EACH tablet 1 tab PO DAILY levetiracetam 750 MG tablet 1,500 mg PO TID fluticasone propionate [Flonase Allergy Relief] 50 mcg/actuation [place],Suspension 1 spray INTRANASAL DAILY Rx Instructions: administer [...] not improving for further evaluation. Print Language: Telugu Disposition Disposition: Home, Self Care What to do if you have Problems For any increased pain, shortness of breath, bleeding, nausea or vomiting, chestpain, or any unexpected problems, contact your Primary Care Provider. Call [facility] ([phone]) or report to the closest Emergency Room. Call 911 if necessary. 03/14/25 9800 <Electronically signed by Zain Carvajal MD> Cosigner Signature (if applicable): CC: Dr. Amandeep Loredo DO ~ Signed [facility] Work Phone: 1(628) 528-317505-15-2025 Radiology Diagnostic study note [facility] Imaging Services [address] [place] [address] Wrist min 3 Views MR#: [id number] Acct: [id number] Name: ORTIZ MASON Rep #: [id number] : 1970 F 54 From: Lizabeth Guerrero MD PCP: Dr. Amandeep Loredo DO Status: RE G ER Study:Wrist min 3 Views Date of Exam: Exam# [id number] Ordering Dr: Jhon Flynn DO PROCEDURE: WRIST [...] without visible acute displaced fracture. Reading Location: [facility] CC: Dr. Franki Flynn DO; Dr. Amandeep Loredo DO ~ [place] Leadperson: Signed [facility]05-15-2025 Radiology Diagnostic study note [facility] Imaging Services [address] [place], [place] [id number] HIP, UNI W/ Pelvis 2-3 Views MR#: [id number] Acct: [id number] Name: ORTIZ MASON Rep #: [id number] : 1970 F 54 From: Lizabeth Guerrero MD PCP: Dr. Amandeep Loredo DO Status: RE G ER Study:HIP, UNI W/ Pelvis 2-3 Views Date of Ex am: 01/05/25 Exam# [id number] Ordering Dr: Jhon Flynn DO PROCEDURE: HIP, [...] 2. Additional description as above. Reading Location: [id number] CC: Dr. Franki Flynn, DO; Dr. Amandeep Loredo, DO ~ [place] Leadperson: Signed [facility]06-08-2024 Telephone encounter Note* Telephone Encounter - [...] not been seenat since 2016. Assessment: See basketball referee. Recommendation: Triage recommends pt be seen within [...] N/A Protocols used: Rash or Redness - Iqobbocqo-T-RD [id number] Miscellaneous Notes* Telephone Encounter - Cheri Kuhn [...] chart she has not been seenat since 2015. Assessment: See basketball referee. Recommendation: Triage recommends pt be seen within [...] N/A Protocols used: Rash or Redness - Gcvyzzinh-R-CW documented in this [id number] Discharge summary Author Narciso Baron [facility] October 07, 2023 10:12pm Note Date/Time October 07, 2023 7:19pm [facility] Medical Records Department [address] [place] [address] Emergency Department Summary 10/07/23 MR#: [id number] Acct: [id number] Name: ORTIZ MASON Rep #:[id number] : 1970 53 From: Narciso Hawk PCP: Dr. Ari Sotomayor DO Status:REG ER Location: ED HPI History of Present Illness Chief Complaint: Back [facility] Medical History (Updated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 Urinary incontinence. [...] Ambulation Assistance: Independent Transfer Assistance: Independent Active Airport Clerk: No Patient's Airport Clerk Info: Daughter or Fiance' Occupation: On disability [...] Plan of Care supervision is transferred to [facility] Physical Therapist. Katrin Mcpherson, PT N-95, goggles, and gloves worn * Janeth Diaz, [facility] - 05/14/2020 10:47 AM EDT [facility] MEDICATION RECONCILIATION Date: 05/14/20 Room:[id number] Patient Name: Ortiz Mason Allergies: Latex; Other; [...] daily - last fill on 02/12/20 per [facility] pharmacy. b. Advair 250-50 mcg/dose 1 puff daily (Patient has not filled since January 2020. States script was originally written for q 12 hours but was instructed to use only once daily). c. Levetiracetam 250 mg - 5 tablets twice daily - last fill per [facility] pharmacy 12/13/19 d. Tizanidine 4 mg BID as needed - last fill per [facility] pharmacy was in August 2019. They last [...] 10:47 AM Name: Janeth Diaz PharmD Pager: [phone] * Delbert Damon PA-C - 05/14/2020 7:55 AM EDT [facility] Progress Note Ortiz Mason [...] creatinine clearance >30 Disposition:await test results, await risk management consultant recommendations, await clinical improvement and anticipate discharge 1-2d I spent over 51% of total time providing counseling or incoordination of care: > 35 minutes discussed with nurse, patient and family updated, I personally examined the patient and I personally reviewed chart, data, labs radiology reports 7AM-4PM Please Perfect serve Delbert Damon PA-C or page: [phone] 6PM-6AM please page: [facility] Internal Medicine Associated attestation - Kenisha Brunson MD - 05/14/2020 3:19 PM EDT Attending Supervising Physician's Attestation Statement The patient is a 50 y.o. female. I have performed a history and physical examination of the patient. I discussed the case with the physician assistant inventory manager. I reviewed the patient's Past Medical History, [...] Pulse: 99 [phone] 90 Resp: 18 19 16 Temp: 97 F (36.1 C) 96.5 [...] Surgery Progress Note PATIENT NAME: Ortiz Mason : 1970 ATTENDING PHYSICIAN: Aba Aguilar MD [...] gastroparesis s/p neurostimulator placement 2012 with battery [id number] presenting with abdominal pain and constipation Gastroparesis - will interrogate pacer today - ok to advance diet as tolerated - anti-emetics PRN - consider scheduled reglan Constipation - aggressive bowel regimen - GI consulted Pager:[phone] Associated attestation - Theron Taylor MD - 05/14/2020 2:08 PM EDT [facility] Physicians Surgery Patient Name: Ortiz Mason Date: [...] 2025 1:58 pm Chief Complaint Admit Date fallJanuary 05, 2025 4:57p m BACK PAIN March 14, 2025 1:58 pm sob April 14, 2025 7: 36am Chief Complaint Admit Date FALL January 05, 2025 4:57p m BACK PAIN March 14, 2025 1:58 pm sob April 14, 2025 7: 36am INTRACTABLE N/V, CONCERN FOR SEIZURE, CO NCERN FOR April 15, 2025 6:33pm INTRACTABLE N/V, CONCERN FOR SEIZURE, CO NCERN FOR April 16, 2025 12:55pm INTRACTABLE N/V, CONCERN FOR SEIZURE, CO NCERN FOR April 17, 2025 8:41am Reason for Visit Admit Date Intractable nausea and vomiting March 252024 6:33pm Pneumonia April 15, 2025 6: 33pm Seizure disorder April 15, 2025 6: 33pm Additional Source Comments Reason for Visit (unrecogniz [...] Melena Specialty Diagnoses / Procedures Referred By Contac t Referred To Contact Diagnoses Radiculopathy, lumbar region Spinal stenosis of lumbar region Spondylolisthesis, lumbar region Other intervertebral disc degeneration, lumbar region LUMBAR RADICULOPATHY LUMBAR STENOSIS LUMBAR SPONDYLOLITHESES LUMBAR DDD Procedures WY ARTHRD ANT INTERBODY MIN DSC LUMBAR WY SRINIVASAN FACETECTOMY & FORAMOTOMY 1 VRT SGM LUMBAR WY INSJ BIOMCHN DEV INTERVERTEBRAL DSC SPC W/ARTHRD WY POSTERIOR SEGMENTAL INSTRUMENTATION 3-6 VRT SEG WY ALLOGRAFT FOR SPINE SURGERY ONLY MORSELIZED WY AUTOGRAFT SPINE SURGERY LOCAL FROM SAME INCISION WY SRINIVASAN FACETECTOMY & FORAMOTOMY 1 VRT SGM LUMBAR WY SRINIVASAN FACETECTOMY&FORAMOT 1 VRT SGM EA ADDL SGM WY STEREOTACTIC COMPUTER ASSISTED PX SPINAL ANTERIOR LUMBAR INTERBODY FUSION L3/4 VIA RETROPERITONEAL APPROACH; POSTERIOR LATERAL FUSION WITH INSTRUMENTATION L3/L4; LUMBAR L3/L4 LAMINECTOMY POSTERIOR LUMBAR LAMINECTOMY FACETECTOMY FORAMINOTOMY AND DECOMPRESSION Kenny Serna MD [address] [address] [address] [place] [address] Referral ID Status Reason Start Date Expiration Date Visits Re quested Visits Authorized [id number] 1 1 Reason Onset Date Comments Post-op [...] Contact Diagnoses Syncope, unspecified syncope type Procedures [id number], unspecified syncope type Nowak, Deep, DO [address] [place] [address] [facility] [address] [place] [address] Referral ID Status Reason Start Date Expiration Date Visits Re quested Visits Authorized [id number] 1 1 Specialty Diagnoses / Procedures Referred By Dl dai Referred To Contact Radiology Diagnoses Spinal stenosis, lumbar region with neurogenic claudication Procedures CT lumbar spine w IV contrast Kenny Serna MD 1 [facility] [place] [address] [place] [address] Referral ID Status Reason Start Date Expiration Date Visits Re quested Visits Authorized [id number] Closed 07/11/2022 2023 1 1 Specialty Diagnoses / Procedures Referred By Dl dai Referred To Contact Neurology Diagnoses Cervicalgia Procedures Nerve conduction test with EMG Shadia Kovacs PA-C [address] [place] [address] [facility] [address] [place] [address] Referral ID Status Reason Start Date Expiration Date Visits Re quested Visits Authorized [id number] Closed 05/11/2023 11/07/2023 1 1 Reason Comments Mass On stomach getting b igger and now painful Reason Onset Date Comments Mouth Lesions 09/01/2023 Reason Onset Date Comments Advice/health education 01/30/2024 Reason Comments New Patient Specialty Diagnoses / Procedures Referred By Dl t Referred To Contact Orthopedic Surgery Diagnoses Lumbar pain Ileana Villa, 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 [address] [place] [address] Kenny Serna MD [address] [place] [address] Referral ID Status Reason Start Date Expiration Date Visits Requested Visits Authorized [id number] Pending Review Specialty Services Required 2 12/30/2022 1 1 Specialty Diagnoses / Procedures Referred By Contac t Referred To Contact Radiology Diagnoses Spinal stenosis, lumbar region with neurogenic claudication Procedures IR myelography lumbosacral SI Kenny Serna MD [address] [facility] [place] [address] [place] [address] Referral ID Status Reason Start Date Expiration Date Visits Re quested Visits Authorized [id number] Closed 09/23/2022 03/22/2023 1 1 Reason Comments Follow-up Reason Onset Date Comments nurse triage 10/01/2022 Reason Onset Date Comments Nurse Navigation 10/27/2022 Reason Comments surgical clearance Reason Onset Date Comments Follow-up 04/14/2025 INFORMATION SOURCE (unrecogn ized section and content) DATE CREATED AUTHOR [facility] DATE CREATED AUTHOR AUTHOR'S ORGANIZ ATION 01/09/2020 [facility] DATE CREATED AUTHOR AUTHOR'S ORGANIZ ATION 01/09/2020 [facility] DATE CREATED AUTHOR AUTHOR'S ORGANIZ ATION 01/18/2020 [facility] DATE CREATED AUTHOR AUTHOR'S ORGANIZ ATION 05/21/2020 [facility] DATE CREATED AUTHOR AUTHOR'S ORGANIZ ATION 03/13/2023 [facility] ([place] DATE CREATED AUTHOR AUTHOR'S ORGANIZ ATION 01/31/2024 [facility] DATE CREATED AUTHOR AUTHOR'S ORGANIZ ATION 04/18/2025 [facility] DATE CREATED AUTHOR AUTHOR'S ORGANIZ ATION 05/11/2025 [facility] Goals (unrecognized section and content) Goals may [...] Care Provider, Referrin g Provider Active Tyler Rosales PA, PA Attending Provider Active Team Status: Inactive [...] Active Jordin Chisholm MD Emergency Provider Active Photographic Process Worker Relationship Specialty Start Date End Date Amandeep Loredo [address] [place] [address] PCP - General Family Medicine 01/11/21 Photographic Process Worker Relationship Specialty Start Date End Date Amandeep Loredo DO [address] [place] [address] PCP - General Family Medicine 01/11/21 Photographic Process Worker Relationship Specialty Start Date End Date MichelleharjitAmandeep, DO [address] [place] [address] PCP - General Family Medicine 01/11/21 Photographic Process Worker Relationship Specialty Start Date End Date MichelleAmandeep lombardi Edwin, DO [address] [place] [address] PCP - General Family Medicine 01/11/21 Photographic Process Worker Relationship Specialty Start Date End Date Amandeep Loredo Edwin, DO [address] [place] [address] PCP - General Family Medicine 01/11/21 Team Status: Inactive Member Role Status Dates Dr. Ari Sotomayor , Primary Care Provider Active Jordin Chisholm MD Attending Provider, Emergency Provid er Active Team Status: Inactive Member Role Status Dates Dr. Ari Sotomayor , DO Primary Care Provider Active Dr. Alfredito Guerrero , Emergency Provider Active Photographic Process Worker Relationship Specialty Start Date End Date Lauritaankush Amandeep Pineda, DO [address] [place] [address] PCP - General Family Medicine 01/11/21 Photographic Process Worker Relationship Specialty Start Date End Date MichelleAmandeep lombardi Edwin, DO [address] [place] [address] PCP - General Family Medicine 01/11/21 Photographic Process Worker Relationship Specialty Start Date End Date GertrudeAmandeep Edwin, DO [address] [place] [address] PCP - General Family Medicine 01/11/21 Photographic Process Worker Relationship Specialty Start Date End Date MichelleAmandeep lombardi Edwin, DO [address] [place] [address] PCP - General Family Medicine 01/11/21 Team Status: Inactive Member Role Status Dates Dr. Ari Sotomayor , Primary Care Provider Active Dr. Maya Monroy MD Emergency Provider Active Photographic Process Worker Relationship Specialty Start Date End Date Amandeep Loredo DO [address] [place] [address] PCP - General Family Medicine 01/11/21 Photographic Process Worker Relationship Specialty Start Date End Date Amandeep Loredo, DO [address] [place] [place] [address] PCP - General Family Medicine 01/11/21 Photographic Process Worker Relationship Specialty Start Date End Date Amandeep Loredo, DO [address] [place] [address] PCP - General Family Medicine 01/11/21 Photographic Process Worker Relationship Specialty Start Date End Date Amandeep Loredo, DO [address] [place] [address] PCP - General Family Medicine 01/11/21 Photographic Process Worker Relationship Specialty Start Date End Date Amandeep Loredo, DO [address] [place] [address] PCP - General Family Medicine 01/11/21 Team Status: Inactive Member Role Status Dates Dr. Ari Sotomayor , Primary Care Provider Active Dr. Narciso Baron , Emergency Provider Active Team Status: Active Member Role Status Dates Dr. Amandeep Loredo DO Family Provider Active Dr. Amandeep Loredo DO Primary Care Provider Active Team Status: Inactive Member Role Status Dates Dr. Ari Sotomayor , Primary Care Provider Active Dr. Narciso Baron , DO Attending Provider, Emergency P rovider [...] Status Dates Dr. Amandeep Loredo , DO Primary Care Provider Active Dr. Franki Flynn , DO Emergency Provider Active Photographic Process Worker Relationship Specialty Start Date End Date Ari Sotomayor, DO [address] [place] [address] PCP - General 09/16/19 Photographic Process Worker Relationship Specialty Start Date End Date Ari Sotomayor DO [address] [place] [address] PCP - General 09/16/19 Photographic Process Worker Relationship Specialty Start Date End Date Ari Sotomayor DO [address] [place] [address] PCP - General 09/16/19 Photographic Process Worker Relationship Specialty Start Date End Date Ari Sotomayor DO [address] [place] [address] PCP - General 09/16/19 Photographic Process Worker Relationship Specialty Start Date End Date Ari Sotomayor, DO [address] [place] [address] PCP - General 09/16/19 Photographic Process Worker Relationship Specialty Start Date End Date Ari Sotomayor DO [address] [place] [address] PCP - General 09/16/19 Photographic Process Worker Relationship Specialty Start Date End Date Amandeep Loredo, DO [address] [place] [address] PCP - General Family Medicine 01/11/21 Photographic Process Worker Relationship Specialty Start Date End Date Amandeep Loredo DO [address] [place] [address] PCP - General Family Medicine 01/11/21 Team Status: Active Member Role Status Dates Dr. Amandeep Loredo DO Primary Care Provider Active Team Status: Inactive Member Role Status Dates Dr. Amandeep Loredo DO Primary Care Provider Active Start: October 20, 2024 End: October 21, 2024 Dr. Luis Angel Morales DO Attending Provider Active Start: October 20, 2024 End: October 21, 2024 Dr. uLis Angel Morales DO Referring Provider Active Start: [...] April 14, 2025 End: April 14, 2025 Team Status: Inactive Member Role/Relationship Status Dates Dr. Amandeep Loredo DO Primary Care Provider Active Start: April 15, 2025 End: April 17, 2025 Jordin Chisholm MD Emergency Provider Active Star t: April 15, 2025 End: April 17, 2025 Dr. Hany Gooden DO Admit Provider Active Start: April 15, 2025 End: April 17, 2025 Dr. Hany Gooden DO Other Provider Active Start: April 15, 2025 End: April 17, 2025 Dr. Alfred Sotomayor DO Attending Provider Active Start: April 15, 2025 End: April 17, 2025 Dr. Karla Elizondo MD Other Provider Active St art: April 15, 2025 End: April 17, 2025 Team Status: Active Member Role/Relationship Status Dates Dr. Amandeep Loredo DO Primary Care Provider Active Start: April 16, 2025 Jordin Chisholm MD Emergency Provider Active Star t: April 16, 2025 Dr. Hany Gooden DO Admit Provider Active Start: April 16, 2025 Dr. Hany Gooden DO Other Provider Active Start: April 16, 2025 Dr. Karla Elizondo MD Attending Provider Active Start: April 16, 2025 Dr. Karla Elizondo MD Other Provider Active St art: April 16, 2025 Team Status: Active Member Role/Relationship Status Dates Dr. Amandeep Loredo DO Primary Care Provider Active Start: April 17, 2025 Jordin Chisholm MD Emergency Provider Active Star t: April 17, 2025 Dr. Hany Gooden DO Admit Provider Active Start: April 17, 2025 Dr. Hany Gooden DO Other Provider Active Start: April 17, 2025 Dr. Alfred Sotomayor DO Attending Provider Active Start: April 17, 2025 Dr. Alfred Sotomayor DO Other Provider Active Star t: April 17, 2025 Dr. Karla Elizondo MD Other Provider Active St art: April 17, 2025 Scheduled Active and Recently Administ ered [...] Metz RN) 0808 (Given - Provider: Kerri Eller RN) clindamycin in D5W (Cleocin) IVPB 900 mg (COMPLETED) 900 mg, IntraVENous, at 50 mL/hr, Administer over 60 Minutes, Every 8 hours, First dose on Lana 11/06/22 at 2200, For 2 days, Phase II/On Unit, premix bag, Suspected Indication (Select all that apply): Surgical Prophylaxis 0623 (New Bag - Provider: Rea Villareal RN)0723 (Stopped - Provider: Waleska León RN)1435 (New Bag - Provider: Rosa Taveras)1535 (Stopped [...] Shadia Metz RN)1418 (Given - Provider: Shadia Metz, CLIVE)2022 (Given - Provider: Rea Villareal RN) 0808 (Given - Provider: Kerri Eller RN)1400 (Canceled Entry - Provider: Automatic Discharge Provider - Comment: Automatically canceled at discontinue of medication order) levETIRAcetam (Keppra) tablet 1,500 mg 1,500 mg, Oral, 2 times daily, First dose on Thu11/07/22 at 2100, Recovery & On Unit 1102 (Given - Provider: Rsoa Taveras - Comment: pt was resting)2201 (Given - Provider: Rea Villareal RN) 0854 (Given - Provider: Shadia Metz, CLIVE)202 (Given - Provider: Rea Villareal RN) 0818 (Given - Provider: Kerri Eller RN) Lidocaine 4 % patch 1 patch 1 [...] Oral, Every 8 hours, First dose on Thu11/06/22 at 2030, Phase II/On Unit 0411 (Given - Provider: Rea Villareal RN)1134 (Given - Provider: Waleska León, CLIVE)2201 (Given - Provider: Rea Villareal RN) 0544 [...] Indications: Hypokalemia 1725 (Given - Provider: Shadia Metz RN) Senna (Senokot) syrup 10 mL(Linked Group 1) 10 mL, Oral, 2 times daily, First dose on 11/09/22 at 1200, Give oral liquid if patient prefers or per feeding tube if present. 1207 (See Alternative - Provider: Shadia Metz RN)2021 (See Alternative - Provider: Rea Villareal RN) 0900 (See Alternative - Provider: Kerri Eller, CLIVE) sennosides (Senokot) tablet 17.2 mg(Linked Group 1) 17.2 mg (2 tablet), Oral, 2 times daily, First dose on 11/09/22 at 1200 1207 (Given - Provider: Shadia Metz RN)2021 (Given - Provider: Rea Villareal RN) 0900 (Not Given - Provider: Kerri Eller, CLIVE - Reason: Patient/family refused) sodium chloride 0.9% (NS) flush 10 mL 10 mL, IntraVENous, Every 12 hours scheduled (2 times per day), First dose on Lana 11/06/22 at 2100, Phase II/On Unit 0900 (Given - Provider: Waleska León RN)2100 (Given - Provider: Rea Villareal RN) 0900 (Given - Provider: Shadia Metz RN)2141 (Given - Provider: eRa Villareal RN) 0900 (Not Given - Provider: [...] Villareal RN)0807 (See Alternative - Provider: Kerri Eller, CLIVE) HYDROmorphone (Dilaudid) injection 0.5 mg(Linked Group 2) [...] Rea Villareal RN)0859 (Given - Provider: Waleska León, RN)1401 (Given - Provider: Waleska León RN)1743 (Given - Provider: Waleska León RN)2201 (Given - Provider: Rea Villareal RN) 0316 (Given - Provider: Rea Villareal RN)0854 (Given - Provider: Shadia Metz, CLIVE)1207 (Given - Provider: Shadia Metz RN)1505 (Given - Provider: Shadia Metz RN)1807 [...] RN)2021 (Given - Provider: Rea Villareal RN) 003 (Given - Provider: Rea Villareal RN)0605 (Given - Provider: Rea Villareal RN)1140 (Given - Provider: Kerri Eller, CLIVE) oxyCODONE (Roxicodone) immediate release tablet 5 mg(Linked [...] daily, First dose on 11/09/22 at 1200
Give oral liquid if [...] Provider: Lyndsay Paredes RN - Reason: Patient/family refused)2040 (Given - Provider: Jayne Dubois RN) 0507 [...] Paredes RN) 0809 (Given - Provider: Spring Yates LPN) cetirizine (ZyrTEC) tablet 10 mg 10 mg, Oral, Daily, First dose on Thu11/26/22 at 1430 1625 (Given - Provider: Rubia Infante RN) 0809 (Given - Provider: Spring Yates LPN) cyancobalamine (Vitamin B-12) tablet 500 mcg 500 mcg, Oral, Daily, First dose on Thu11/26/22 at 0900 0837 (Given - Provider: Lyndsay Paredes RN) 0809 (Given - Provider: Spring Yates LPN) diphenhydrAMINE (BENADryl) injection 50 mg (COMPLETED) [...] Patient/family refused) 0810 (Given - Provider: Spring Yates LPN) famotidine (Pepcid) injection 20 mg (COMPLETED) [...] Dubois RN) 0809 (Given - Provider: Spring Yates LPN)1400 (Canceled Entry - Provider: Automatic Discharge Provider - Comment: Automatically canceled at discontinue of medication order) levETIRAcetam (Keppra) 1,500 mg in sodium chloride 0.9 % 100 mL IVPB 1,500 mg, IntraVENous, at 400 mL/hr, Administer over 15 Minutes, 2 times daily, First dose on Thu11/25/22 at 2150 2229 (New Bag - Provider: Sprakle Hassan RN)2244 (Stopped - Provider: Sparkle Hassan RN) 0839 (New Bag - Provider: Lyndsay Paredes RN)1019 (Stopped - Provider: Lyndsay Paredes RN)204 (New Bag - Provider: Jayne Dubois RN)205 (Stopped - Provider: Jayne Dubois RN) 0815 (New Bag - Provider: Spring Yates LPN)0830 (Stopped - Provider: Mickie Quiroga RN) [...] Dubois RN) 0809 (Given - Provider: Spring Yates LPN)1400 (Canceled Entry - Provider: Automatic Discharge [...] Dubois RN) 0810 (Given - Provider: Spring Yates LPN) morphine sulfate (PF) injection 2 mg [...] - Provider: Sahara Manriquez RN) nystatin (Mycostatin) 537011 UNIT/ML suspension 500,000 Units 500,000 Units (5 [...] Dubois RN) 0809 (Given - Provider: Spring Yates LPN)1300 (Canceled Entry - Provider: Automatic Discharge [...] For 1 dose 2214 (Given - Provider: Sparkel Hassan RN) sodium chloride 0.9 % bolus 1,000 mL [...] corners. 0101 (Given - Provider: Jayne Dubois, CLIVE) morphine sulfate (PF) injection 2 mg (CANCELED) [...] Quiroga RN) [id number] (Given - Provider: Jayne Dubois, CLIVE) ondansetron (Zofran) injection 4 mg(Linked Group 1) [...] Jayne Dubois RN)[id number] (Given - Provider: Spring Yates LPN) oxyCODONE (Roxicodone) immediate release tablet 5 [...] Dubois RN)[id number] (See Alternative - Provider: Spring Yates LPN) perflutren lipid microspheres (Definity) injection 1.65 [...] PRN, muscle spasms, Starting on Thu11/26/22 at [id number] (Given - Provider: Jayne Dubois RN) Linked [...] PRN, nausea, vomiting, Starting on Thu11/25/22 at 2158
1st Line. Give IV if patient is [...] BE BASED ON THE PRIMARY CLINICAL RECORDS. [facility]. provides no warranty or guarantee of the accuracy or completeness of information in this document.
== END 2025-05-16 20:02 | disposition left against medical advice (07) ==
LOC: ED 20:15
PROVIDERS: PCP Family Medicine
DX: Z53.21 Procedure and treatment not carried out due to patient leaving prior to being seen by health care provider (principal)

== ENCOUNTER 2025-06-14 15:24 | Emergency (ER) | payer MEDICARE, MEDICAID, SELFPAY ==
[2025-06-14 15:24] VITALS: BP 123/75; PULSE 80; RESP 16; TEMP 36.7; O2SAT 98
--- NOTE | 2025-06-14 15:26 | RAD_ITS ---
PROCEDURE: RIGHT ANKLE MIN 3 VIEWS; FOOT MIN 3 VIEWS 06/14/2025 REASON FOR EXAM: INJURY TECHNIQUE: Procedure Code: RADANK; RADFO Modality: DX Procedure: ANKLE MIN 3 VIEWS; FOOT MIN 3 VIEWS Laterality: Right COMPARISON: None. FINDINGS: No acute fracture or dislocation. Alignment is anatomic. Preserved joint spaces. No aggressive osseous lesion. No marked soft tissue swelling or radiopaque foreign body. RAD/Ankle min 3 Views IMPRESSION: No acute fracture or dislocation. Reading Location: [id number]
--- NOTE | 2025-06-14 15:27 | RAD_ITS ---
PROCEDURE: RIGHT ANKLE MIN 3 VIEWS; FOOT MIN 3 VIEWS 06/14/2025 REASON FOR EXAM: INJURY TECHNIQUE: Procedure Code: RADANK; RADFO Modality: DX Procedure: ANKLE MIN 3 VIEWS; FOOT MIN 3 VIEWS Laterality: Right COMPARISON: None. FINDINGS: No acute fracture or dislocation. Alignment is anatomic. Preserved joint spaces. No aggressive osseous lesion. No marked soft tissue swelling or radiopaque foreign body. RAD/Foot min 3 Views IMPRESSION: No acute fracture or dislocation. Reading Location: [id number]
[2025-06-14 16:54] VITALS: BMI 28.1
--- NOTE | 2025-06-14 17:22 | EX.ED.DYSGE1 ---
HPI History of Present Illness Chief Complaint: Lower Extremity Injury Narrative Narrative: Chief complaint and HPI: 55-year-old female presents for evaluation of right ankle/foot pain. Patient states she was loading boxes up and down the stairs yesterday when she accidentally twisted her ankle. Ankle became bruised with increased pain today. Has been using ice and elevation. Denies any numbness or tingling. Review of systems: See HPI Medications: As listed on the chart Allergies: As listed on the chart PFSH: Per chart Vital signs: As listed on the chart. Reviewed. Physical exam: Gen: A&O x3 Head: Normocephalic, atraumatic Eyes: No sclera icterus, conjunctiva clear ENT: Moist mucous membranes CV: Regular rate Resp: Nonlabored respiration Musc: Full range of motion of the right lower extremity except limited in right ankle secondary to pain, patient has ecchymosis located mostly at the medial malleolus and into the dorsum of the foot-tender to palpation with mild swelling, DP/PT pulses +2 bilaterally, good capillary refill, sensation intact, compartments soft, Achilles nontender and intact, calcaneus nontender, knee nontender to palpation with full range of motion Skin: Warm, dry Psych: Cooperative [facility] Medical History NSTEMI (non-ST elevated myocardial infarction) Cardiac arrest COVID-19 Brain aneurysm Chronic pain Rheumatoid arthritis Kidney stones Kidney disease GERD (gastroesophageal reflux disease) Former smoker Sleep apnea Asthma Migraines Seizures Home Medications Medication Instructions Recorded Last Taken Type syodvhhv-wpnd-nyob 8 mg-folic 400 1 tab PO DAILY supplement 03/21/19 07/26/21 History mcg-K 50 mcg-lutein 300 mcg tablet levetiracetam 750 mg tablet 1,500 mg PO Q12H seizures 12/04/19 07/26/21 History fluticasone propionate 50 1 spray intranasal DAILY 08/24/22 Unknown History mcg/actuation nasal spray,suspension (Flonase Allergy Relief) cyclobenzaprine 10 mg tablet 10 mg PO TID PRN Muscle Spasm #20 05/11/24 Unknown Rx TABLETS gabapentin 400 mg capsule 800 mg PO Q12H nerve pain 09/04/24 Unknown History omeprazole 20 mg capsule,delayed 20 mg PO BID reflux 01/12/25 Unknown History release tizanidine 2 mg capsule 2 mg PO TID PRN muscle spasticity 10/21/24 Unknown Rx #14 caps metaxalone 800 mg tablet 800 mg PO TID pain 7 days #21 tabs 03/14/25 Unknown Rx oxycodone-acetaminophen 5 mg-325 1 tab PO Q4H PRN Pain 04/15/25 Unknown History mg tablet guaifenesin 600 mg tablet, 600 mg PO BID #10 tabs 04/17/25 Unknown Rx extended release 12 hr (Mucinex) levofloxacin 750 mg tablet 750 mg PO Q24H #5 tabs 04/17/25 Unknown Rx Allergy/AdvReac Type Severity Reaction Status Date / Time Penicillins Allergy Anaphylaxis Verified 06/14/25 15:26 propoxyphene napsylate (From Allergy Rash Verified 06/14/25 15:26 Darvocet-N 100) adhesive tape (plastic tape) AdvReac Other Verified 06/14/25 15:26 hydrocodone bitartrate (From AdvReac Itching Verified 06/14/25 15:26 Vicodin) Iodinated Contrast Media AdvReac Vomiting Verified 06/14/25 15:26 (contrast dye - iodinated) venom-honey bee (bee venom AdvReac Chest Verified 06/14/25 15:26 (honey bee)) tightness Surgical History History of kidney surgery History of hysterectomy Hx of neck surgery Previous back surgery History of appendectomy History of cholecystectomy Social History household members: none Smoking Status: Current every day smoker tobacco type: cigarettes substance use type: does not use EXAM Physical Exam Const Vital Signs: 06/14/25 15:24 Temperature 98.1 F Temperature Source Oral Pulse Rate 80 Respiratory Rate 16 Blood Pressure 123/75 H Blood Pressure Mean 91 Pulse Ox 98 Oxygen Delivery Method Room Air MDM MDM MDM Narrative Medical decision making narrative: 55-year-old female presents for evaluation of right ankle/foot pain. Patient states she was loading boxes up and down the stairs yesterday when she accidentally twisted her ankle. Ankle became bruised with increased pain today. Has been using ice and elevation. Denies any numbness or tingling. X-ray of the ankle and foot was obtained in triage. I agree with the x-rays obtained. [place] ordered for pain. Differential diagnosis includes but is not limited to sprain, contusion, fracture. X-rays of the right foot and ankle ultrasound pain interpreted by me, ED physician. No obvious fracture or dislocation. Radiology in agreement. Patient's symptoms are likely secondary to a sprain. She was given education on RICE therapy. Aircast and crutches as needed for ambulation. Follow-up with PCP and orthopedic physician. Motrin Tylenol as needed for pain. She vermin understand the plan. Patient will discharge home. Impression: 1. Right ankle sprain 2. Right foot sprain Radiography Diagnostic Testing: Clinical Impression(s) from Imaging Studies Ankle X-Ray 06/14/25 15:26 IMPRESSION: No acute fracture or dislocation. Reading Location: [facility] Foot X-Ray 06/14/25 15:27 IMPRESSION: No acute fracture or dislocation. Reading Location: [facility] Discharge Plan Triage Chief Complaint: Lower Extremity Injury ED Provider: Adelfo Tipton Dx/Rx/DC Orders Prescriptions: No Action ceqyzdgp-gli-krjc-FA-vit K-lut 1 EACH tablet 1 tab PO DAILY levetiracetam 750 MG tablet 1,500 mg PO Q12H fluticasone propionate [Flonase Allergy Relief] 50 mcg/actuation [place],Suspension 1 spray INTRANASAL DAILY Rx Instructions: administer into each nostril cyclobenzaprine 10 mg tablet 10 mg PO TID PRN (Reason: Muscle Spasm) Qty: 20 0RF omeprazole 20 mg capsule,delayed release(DR/EC) 20 mg PO BID gabapentin 400 mg capsule 800 mg PO Q12H tizanidine 2 mg capsule 2 mg PO TID PRN (Reason: muscle spasticity) Qty: 14 0RF oxycodone-acetaminophen 5-325 mg tablet 1 tab PO Q4H PRN (Reason: Pain) guaifenesin [Mucinex] 600 mg Tablet Extended Release 12hr 600 mg PO BID Qty: 10 0RF levofloxacin 750 mg tablet 750 mg PO Q24H Qty: 5 0RF metaxalone 800 mg tablet 800 mg PO TID 7 Days Qty: 21 0RF Primary Care Provider: Amandeep Loredo Referrals: Amandeep Loredo DO [Primary Care Provider, Family Practice] Print Language: Telugu
[2025-06-14] MEDS: HYDROcodone Bitartrate/Apap 5/325 Tablet PO (17:38)
[2025-06-14 17:41] VITALS: BP 123/75; PULSE 80; RESP 16; TEMP 36.7; O2SAT 98
== END 2025-06-14 17:42 | disposition home or self-care (01) ==
PROVIDERS: Emergency Provider Surgery; PCP Family Medicine; Visit Provider Surgery
DX: S93.401A Sprain of unspecified ligament of right ankle, initial encounter (principal); S93.601A Unspecified sprain of right foot, initial encounter; G89.29 Other chronic pain; X50.1XXA Overexertion from prolonged static or awkward postures, initial encounter; J45.909 Unspecified asthma, uncomplicated; K21.9 Gastro-esophageal reflux disease without esophagitis; F17.210 Nicotine dependence, cigarettes, uncomplicated; Z79.899 Other long term (current) drug therapy
CPT/HCPCS: 73610; 73630; 99284